=== PATIENT | male | born 1955 | race Caucasian/White ===

== ENCOUNTER 2016-02-21 | Inpatient (IN) | payer MEDICARE, MEDICAID ==
[~2016-02-21] VITALS: Ht 180.3 cm; Wt 82.6 kg
[~2016-02-21] MED LIST: ACET-868 GT; ALBU1.257 IH; ALLA266C2 TP; ASCO500S2 GT; ATOR10TA GT; BACL10TA GT; BENZ1LOZ58 PO; BISA10SU8 RC; CADE40GE2 TP; CALC-494 GT; CALC0.253 PO; CLOP75TA15 GT; CLOT15CR35 TP; ENOX40DI9 SQ; ESCI10TA GT; FAMO20TA8 GT; GABA300C GT; HYDR-552 GT; HYDR1SOL TP; IPRA0.2S9 IH; MAGN400O6 GT; METO25TA6 GT; MINE396O3 TP; MULT-659 GT; NEOM15OI3 TP; ONDA4TAB11 GT
--- NOTE | 2016-02-23 08:30 | NUR ---
Please see resident's previous account [id number] for all assessments and nurses notes. Originally admitted on .
[2016-02-23] MEDS ORDERED: MENTHOL/CETYLPYRD (CEPACOL) 1 LOZ LOZENGE PO PRN (09:40)
[2016-02-23] MEDS ORDERED: ALBUTEROL HALF STRENGTH 1.25 MG/3 ML VIAL.NEB NEB PRN (09:40)
[2016-02-23] MEDS ORDERED: BISACODYL SUPP (10 MG) 10 MG/SUPP.RECT SUPP.RECT RC PRN (09:40)
[2016-02-23] MEDS ORDERED: ONDANSETRON 4 MG TAB.RAPDIS GT PRN (09:40)
[2016-02-23] MEDS ORDERED: ATORVASTATIN CALCIUM 20MG TABLET GT SCH (09:40)
[2016-02-23] MEDS ORDERED: IPRATROPIUM NEB FS 0.5 MG/2.5 ML AMPUL.NEB NEB PRN (09:40)
[2016-02-23] MEDS ORDERED: HYDROGEL DRESSING 90 GM TUBE TP SCH ×2 (09:40)
[2016-02-23 10:00] VITALS: BP 103/62
--- NOTE | 2016-02-23 10:34 | NUR ---
WOUND CARE CONSULT: PT SEEN FOR EVALUATION OF EXCORIATED AREAS AROUND SACRAL ULCER. SACRAL STAGE IV ULCER MEASURES 5CM X 5CM X 0.5CM AND IS RED IN COLOR, MODERATE AMOUNT OF SEROSANGUINOUS AND GREEN DRAINAGE NOTED, NO ODOR. THERE IS EXCORIATION ON RT AND LEFT SIDE OF SACRAL ULCER. RT BUTTOCK STAGE IV ULCER MEASURES 5.5CM X 6.5CM X 1.5CM AND IS RED IN COLOR. THERE IS UNDERMINING OF 1.5CM FROM 9 TO 12 OCLOCK. THERE IS MODERATE AMOUNT OF SEROSANGUINOUS DRAINAGE AND GREEN DRAINAGE, NO ODOR. PERIWOUND IS CLEAR EXCEPT FOR SLIGHT EXCORIATION PROXIMALLY NEAR SACRAL ULCER. RECOMMENDATIONS MADE FOR GENTAMICIN TO SACRAL AND RT BUTTOCK ULCERS, Z GUARD TO PERIWOUND AREAS, PACK BOTH ULCERS WITH KERLIX LIGHTLY MOISTENED WITH SALINE, THEN COVER WITH GAUZE, AND ABD PADS. PERIWOUND AREAS TO BE PROTECTED WITH Z GUARD AND OIL EMULSION DSG, GAUZE, ABD PAD OVER ENTIRE WOUND AND PERIWOUND AREA. WOUND CARE TO BE PERFORMED EVERY SHIFT AND PRN SOILING. SKIN TO BE KEPT CLEAN AND DRY. ALL SKIN PROTECTION AND WOUND RECOMMENDATIONS DISCUSSED WITH NURSING STAFF. IN AGREEMENT WITH PLAN OF CARE.
--- NOTE | 2016-02-23 11:12 | NUR ---
Please see resident's previous account [id number] for Social Service assessments, evaluations and notes.
[2016-02-23] MEDS: BACLOFEN (10 MG) 10 MG TABLET GT SCH ×3 (13:00→21:43)
[2016-02-23] MEDS: CALCIUM CARBONATE 500 MG TAB.CHEW GT SCH ×2 (13:00→17:45)
[2016-02-23] MEDS: MINERAL OIL/PETROL OINT 396 GM JAR TP SCH ×2 (13:00→17:46)
[2016-02-23] MEDS: HYDROGEL DRESSING 90 GM TUBE TP SCH ×3 (13:00→21:44)
[2016-02-23] MEDS: GABAPENTIN 300 MG CAPSULE GT SCH ×2 (13:00→17:45)
[2016-02-23] MEDS: ACIDOPHILUS/BULGARICUS 1 EACH TAB.CHEW GT SCH ×2 (13:00→17:41)
[2016-02-23] MEDS: GENTAMICIN 0.1% OINT 15 GM TUBE TP SCH ×2 (13:00→21:45)
[2016-02-23] MEDS: Z GUARD REMEDY 4 OZ OINT TP SCH ×4 (13:00→21:45)
[2016-02-23] MEDS: METOPROLOL TARTRATE 25 MG TABLET GT SCH (17:41)
[2016-02-23] MEDS: ASCORBIC ACID 500 MG TABLET GT SCH (17:46)
[2016-02-23 20:36] VITALS: BP 94/53
[2016-02-23] MEDS: FAMOTIDINE (20 MG) 20 MG TABLET GT SCH (21:43)
[2016-02-23] MEDS: POVIDONE-IODINE OINT 28.4 GM TUBE TP SCH ×2 (21:44)
[2016-02-23] MEDS: HYDROGEN PEROXIDE 480 ML BOTTLE TP SCH (21:45)
[2016-02-23] MEDS: CLOTRIMAZOLE/BETAMETASONE DIPROPIONATE 15 GM TUBE TP SCH ×2 (21:45)
[2016-02-23] MEDS: ATORVASTATIN CALCIUM 20MG TABLET GT SCH (21:46)
[2016-02-24] MEDS: HYDROCODONE/APAP 10/325MG 1 EA TABLET GT PRN ×2 (06:07→22:55)
[2016-02-24 07:49] VITALS: BP 113/63
[2016-02-24] MEDS: METOPROLOL TARTRATE 25 MG TABLET GT SCH ×2 (09:00→16:50)
[2016-02-24] MEDS: MINERAL OIL/PETROL OINT 396 GM JAR TP SCH ×3 (09:00→16:51)
[2016-02-24] MEDS: CRANBERRY EXT/C/L. SPOROGENES 405 MG/TAB TABLET GT SCH (09:41)
[2016-02-24] MEDS: POLYETHYLENE GLYCOL 3350 17 GM POWD.PACK GT SCH (09:42)
[2016-02-24] MEDS: ASCORBIC ACID 500 MG TABLET GT SCH ×2 (09:42→16:38)
[2016-02-24] MEDS: BACLOFEN (10 MG) 10 MG TABLET GT SCH ×4 (09:42→21:02)
[2016-02-24] MEDS: ESCITALOPRAM OXALATE (10 MG) 10 MG TABLET GT SCH (09:42)
[2016-02-24] MEDS: CALCITRIOL ORAL SOLUTION 1 MCG/ML GT SCH (09:42)
[2016-02-24] MEDS: GABAPENTIN 300 MG CAPSULE GT SCH ×3 (09:42→16:38)
[2016-02-24] MEDS: MULTIVIT, IRON, MIN NO. 8, FA 1 TAB GT SCH (09:42)
[2016-02-24] MEDS: ACIDOPHILUS/BULGARICUS 1 EACH TAB.CHEW GT SCH ×3 (09:42→16:37)
[2016-02-24] MEDS: CLOPIDOGREL BISULFATE 75 MG TABLET GT SCH (09:42)
[2016-02-24] MEDS: FAMOTIDINE (20 MG) 20 MG TABLET GT SCH ×2 (09:42→21:02)
[2016-02-24] MEDS: CALCIUM CARBONATE 500 MG TAB.CHEW GT SCH ×3 (09:42→16:38)
[2016-02-24] MEDS: ENOXAPARIN SODIUM 40 MG/0.4 ML DISP.SYRIN SQ SCH (09:43)
[2016-02-24] MEDS: HYDROCODONE/APAP 10/325MG 1 EA TABLET GT SCH (12:28)
[2016-02-24] MEDS: CLOTRIMAZOLE/BETAMETASONE DIPROPIONATE 15 GM TUBE TP SCH ×4 (13:00→21:03)
[2016-02-24] MEDS: HYDROGEN PEROXIDE 480 ML BOTTLE TP SCH ×2 (13:00→21:03)
[2016-02-24] MEDS: HYDROGEL DRESSING 90 GM TUBE TP SCH ×5 (13:00→22:00)
[2016-02-24] MEDS: POVIDONE-IODINE OINT 28.4 GM TUBE TP SCH ×4 (13:00→21:02)
[2016-02-24] MEDS: Z GUARD REMEDY 4 OZ OINT TP SCH ×7 (13:00→22:00)
[2016-02-24] MEDS: GENTAMICIN 0.1% OINT 15 GM TUBE TP SCH ×3 (13:00→22:00)
[2016-02-24 20:16] VITALS: BP 110/66
[2016-02-24] MEDS: ATORVASTATIN CALCIUM 20MG TABLET GT SCH (21:03)
[2016-02-25] MEDS: HYDROCODONE/APAP 10/325MG 1 EA TABLET GT PRN ×2 (05:18→21:40)
[2016-02-25 07:56] VITALS: BP 111/67
[2016-02-25] MEDS: CRANBERRY EXT/C/L. SPOROGENES 405 MG/TAB TABLET GT SCH (09:19)
[2016-02-25] MEDS: ACIDOPHILUS/BULGARICUS 1 EACH TAB.CHEW GT SCH ×3 (09:19→16:51)
[2016-02-25] MEDS: CALCITRIOL ORAL SOLUTION 1 MCG/ML GT SCH (09:19)
[2016-02-25] MEDS: ESCITALOPRAM OXALATE (10 MG) 10 MG TABLET GT SCH (09:19)
[2016-02-25] MEDS: BACLOFEN (10 MG) 10 MG TABLET GT SCH ×4 (09:19→21:35)
[2016-02-25] MEDS: POLYETHYLENE GLYCOL 3350 17 GM POWD.PACK GT SCH (09:20)
[2016-02-25] MEDS: CLOPIDOGREL BISULFATE 75 MG TABLET GT SCH (09:20)
[2016-02-25] MEDS: ASCORBIC ACID 500 MG TABLET GT SCH ×2 (09:20→16:52)
[2016-02-25] MEDS: MULTIVIT, IRON, MIN NO. 8, FA 1 TAB GT SCH (09:20)
[2016-02-25] MEDS: CALCIUM CARBONATE 500 MG TAB.CHEW GT SCH ×3 (09:20→16:52)
[2016-02-25] MEDS: METOPROLOL TARTRATE 25 MG TABLET GT SCH ×2 (09:20→16:51)
[2016-02-25] MEDS: FAMOTIDINE (20 MG) 20 MG TABLET GT SCH ×2 (09:20→21:35)
[2016-02-25] MEDS: GABAPENTIN 300 MG CAPSULE GT SCH ×3 (09:20→16:52)
[2016-02-25] MEDS: HYDROCODONE/APAP 10/325MG 1 EA TABLET GT SCH (09:20)
[2016-02-25] MEDS: ENOXAPARIN SODIUM 40 MG/0.4 ML DISP.SYRIN SQ SCH (09:21)
[2016-02-25] MEDS: Z GUARD REMEDY 4 OZ OINT TP SCH ×8 (10:00→21:37)
[2016-02-25] MEDS: CLOTRIMAZOLE/BETAMETASONE DIPROPIONATE 15 GM TUBE TP SCH ×4 (10:00→21:37)
[2016-02-25] MEDS: POVIDONE-IODINE OINT 28.4 GM TUBE TP SCH ×4 (10:00→21:36)
[2016-02-25] MEDS: HYDROGEN PEROXIDE 480 ML BOTTLE TP SCH ×2 (10:00→21:36)
[2016-02-25] MEDS: GENTAMICIN 0.1% OINT 15 GM TUBE TP SCH ×4 (10:00→21:36)
[2016-02-25] MEDS: MINERAL OIL/PETROL OINT 396 GM JAR TP SCH ×3 (10:00→16:52)
[2016-02-25] MEDS: HYDROGEL DRESSING 90 GM TUBE TP SCH ×6 (10:00→21:36)
--- NOTE | 2016-02-25 20:30 | NUR ---
Pt seen by Peggy Hoffman SVP [employer],no new order.
[2016-02-25 20:44] VITALS: BP 101/61
[2016-02-25] MEDS: ATORVASTATIN CALCIUM 20MG TABLET GT SCH (21:37)
[2016-02-26] MEDS: HYDROCODONE/APAP 10/325MG 1 EA TABLET GT PRN ×2 (04:46→21:21)
[2016-02-26 07:50] VITALS: BP 103/63
[2016-02-26] MEDS: CRANBERRY EXT/C/L. SPOROGENES 405 MG/TAB TABLET GT SCH (09:03)
[2016-02-26] MEDS: ACIDOPHILUS/BULGARICUS 1 EACH TAB.CHEW GT SCH ×3 (09:03→16:50)
[2016-02-26] MEDS: METOPROLOL TARTRATE 25 MG TABLET GT SCH ×2 (09:03→16:50)
[2016-02-26] MEDS: CLOPIDOGREL BISULFATE 75 MG TABLET GT SCH (09:03)
[2016-02-26] MEDS: MULTIVIT, IRON, MIN NO. 8, FA 1 TAB GT SCH (09:03)
[2016-02-26] MEDS: FAMOTIDINE (20 MG) 20 MG TABLET GT SCH ×2 (09:03→21:21)
[2016-02-26] MEDS: ESCITALOPRAM OXALATE (10 MG) 10 MG TABLET GT SCH (09:03)
[2016-02-26] MEDS: CALCITRIOL ORAL SOLUTION 1 MCG/ML GT SCH (09:03)
[2016-02-26] MEDS: HYDROCODONE/APAP 10/325MG 1 EA TABLET GT SCH (09:03)
[2016-02-26] MEDS: BACLOFEN (10 MG) 10 MG TABLET GT SCH ×4 (09:03→21:21)
[2016-02-26] MEDS: POLYETHYLENE GLYCOL 3350 17 GM POWD.PACK GT SCH (09:03)
[2016-02-26] MEDS: GABAPENTIN 300 MG CAPSULE GT SCH ×3 (09:03→16:51)
[2016-02-26] MEDS: ENOXAPARIN SODIUM 40 MG/0.4 ML DISP.SYRIN SQ SCH (09:04)
[2016-02-26] MEDS: ASCORBIC ACID 500 MG TABLET GT SCH ×2 (09:04→16:51)
[2016-02-26] MEDS: CALCIUM CARBONATE 500 MG TAB.CHEW GT SCH ×3 (09:04→16:51)
[2016-02-26] MEDS: MINERAL OIL/PETROL OINT 396 GM JAR TP SCH ×3 (09:41→16:51)
[2016-02-26] MEDS: POVIDONE-IODINE OINT 28.4 GM TUBE TP SCH ×4 (09:41→22:00)
[2016-02-26] MEDS: HYDROGEL DRESSING 90 GM TUBE TP SCH ×6 (09:42→22:00)
[2016-02-26] MEDS: GENTAMICIN 0.1% OINT 15 GM TUBE TP SCH ×4 (09:42→22:00)
[2016-02-26] MEDS: HYDROGEN PEROXIDE 480 ML BOTTLE TP SCH ×2 (09:42→21:21)
[2016-02-26] MEDS: CLOTRIMAZOLE/BETAMETASONE DIPROPIONATE 15 GM TUBE TP SCH ×4 (09:43→21:21)
[2016-02-26] MEDS: Z GUARD REMEDY 4 OZ OINT TP SCH ×8 (09:43→22:00)
[2016-02-26 19:43] VITALS: BP 107/65
[2016-02-26] MEDS: ATORVASTATIN CALCIUM 20MG TABLET GT SCH (21:21)
[2016-02-27 07:54] VITALS: BP 113/71
[2016-02-27] MEDS: FAMOTIDINE (20 MG) 20 MG TABLET GT SCH ×2 (09:21→21:59)
[2016-02-27] MEDS: GABAPENTIN 300 MG CAPSULE GT SCH ×3 (09:21→16:53)
[2016-02-27] MEDS: CALCIUM CARBONATE 500 MG TAB.CHEW GT SCH ×3 (09:21→16:53)
[2016-02-27] MEDS: POLYETHYLENE GLYCOL 3350 17 GM POWD.PACK GT SCH (09:21)
[2016-02-27] MEDS: BACLOFEN (10 MG) 10 MG TABLET GT SCH ×4 (09:21→21:59)
[2016-02-27] MEDS: CLOPIDOGREL BISULFATE 75 MG TABLET GT SCH (09:21)
[2016-02-27] MEDS: METOPROLOL TARTRATE 25 MG TABLET GT SCH ×2 (09:21→16:52)
[2016-02-27] MEDS: MULTIVIT, IRON, MIN NO. 8, FA 1 TAB GT SCH (09:21)
[2016-02-27] MEDS: ASCORBIC ACID 500 MG TABLET GT SCH ×2 (09:21→16:53)
[2016-02-27] MEDS: CRANBERRY EXT/C/L. SPOROGENES 405 MG/TAB TABLET GT SCH (09:21)
[2016-02-27] MEDS: ESCITALOPRAM OXALATE (10 MG) 10 MG TABLET GT SCH (09:21)
[2016-02-27] MEDS: ACIDOPHILUS/BULGARICUS 1 EACH TAB.CHEW GT SCH ×3 (09:21→16:52)
[2016-02-27] MEDS: CALCITRIOL ORAL SOLUTION 1 MCG/ML GT SCH (09:21)
[2016-02-27] MEDS: MINERAL OIL/PETROL OINT 396 GM JAR TP SCH ×3 (09:22→16:53)
[2016-02-27] MEDS: ENOXAPARIN SODIUM 40 MG/0.4 ML DISP.SYRIN SQ SCH (09:22)
[2016-02-27] MEDS: HYDROCODONE/APAP 10/325MG 1 EA TABLET GT SCH (12:03)
[2016-02-27] MEDS: CLOTRIMAZOLE/BETAMETASONE DIPROPIONATE 15 GM TUBE TP SCH ×4 (14:00→22:00)
[2016-02-27] MEDS: GENTAMICIN 0.1% OINT 15 GM TUBE TP SCH ×4 (14:00→21:59)
[2016-02-27] MEDS: HYDROGEN PEROXIDE 480 ML BOTTLE TP SCH ×2 (14:00→21:59)
[2016-02-27] MEDS: POVIDONE-IODINE OINT 28.4 GM TUBE TP SCH ×4 (14:00→21:59)
[2016-02-27] MEDS: HYDROGEL DRESSING 90 GM TUBE TP SCH ×6 (14:00→21:59)
[2016-02-27] MEDS: Z GUARD REMEDY 4 OZ OINT TP SCH ×8 (14:00→21:00)
[2016-02-27 19:53] VITALS: BP 110/68
[2016-02-27] MEDS: ATORVASTATIN CALCIUM 20MG TABLET GT SCH (22:00)
[2016-02-28] MEDS: HYDROCODONE/APAP 10/325MG 1 EA TABLET GT PRN ×2 (03:50→22:57)
[2016-02-28 08:08] VITALS: BP 109/58
[2016-02-28] MEDS: Z GUARD REMEDY 4 OZ OINT TP SCH ×8 (09:00→20:42)
[2016-02-28] MEDS: HYDROGEL DRESSING 90 GM TUBE TP SCH ×6 (09:00→20:41)
[2016-02-28] MEDS: HYDROGEN PEROXIDE 480 ML BOTTLE TP SCH ×2 (09:00→20:41)
[2016-02-28] MEDS: GENTAMICIN 0.1% OINT 15 GM TUBE TP SCH ×4 (09:00→20:41)
[2016-02-28] MEDS: POVIDONE-IODINE OINT 28.4 GM TUBE TP SCH ×4 (09:00→20:40)
[2016-02-28] MEDS: CLOTRIMAZOLE/BETAMETASONE DIPROPIONATE 15 GM TUBE TP SCH ×4 (09:00→20:42)
[2016-02-28] MEDS: CRANBERRY EXT/C/L. SPOROGENES 405 MG/TAB TABLET GT SCH (09:24)
[2016-02-28] MEDS: ESCITALOPRAM OXALATE (10 MG) 10 MG TABLET GT SCH (09:24)
[2016-02-28] MEDS: CALCITRIOL ORAL SOLUTION 1 MCG/ML GT SCH (09:24)
[2016-02-28] MEDS: BACLOFEN (10 MG) 10 MG TABLET GT SCH ×4 (09:24→20:40)
[2016-02-28] MEDS: ACIDOPHILUS/BULGARICUS 1 EACH TAB.CHEW GT SCH ×3 (09:24→17:04)
[2016-02-28] MEDS: METOPROLOL TARTRATE 25 MG TABLET GT SCH ×2 (09:26→17:04)
[2016-02-28] MEDS: FAMOTIDINE (20 MG) 20 MG TABLET GT SCH ×2 (09:27→20:40)
[2016-02-28] MEDS: POLYETHYLENE GLYCOL 3350 17 GM POWD.PACK GT SCH (09:27)
[2016-02-28] MEDS: MULTIVIT, IRON, MIN NO. 8, FA 1 TAB GT SCH (09:27)
[2016-02-28] MEDS: CLOPIDOGREL BISULFATE 75 MG TABLET GT SCH (09:27)
[2016-02-28] MEDS: CALCIUM CARBONATE 500 MG TAB.CHEW GT SCH ×3 (09:27→17:07)
[2016-02-28] MEDS: GABAPENTIN 300 MG CAPSULE GT SCH ×3 (09:27→17:06)
[2016-02-28] MEDS: ASCORBIC ACID 500 MG TABLET GT SCH ×2 (09:27→17:07)
[2016-02-28] MEDS: MINERAL OIL/PETROL OINT 396 GM JAR TP SCH ×3 (09:28→17:07)
[2016-02-28] MEDS: ENOXAPARIN SODIUM 40 MG/0.4 ML DISP.SYRIN SQ SCH (09:29)
[2016-02-28] MEDS: HYDROCODONE/APAP 10/325MG 1 EA TABLET GT SCH (13:30)
[2016-02-28 19:58] VITALS: BP 110/67
[2016-02-28] MEDS: ATORVASTATIN CALCIUM 20MG TABLET GT SCH (21:19)
[2016-02-29 08:06] VITALS: BP 121/75
[2016-02-29] MEDS: MINERAL OIL/PETROL OINT 396 GM JAR TP SCH ×3 (09:00→17:47)
[2016-02-29] MEDS: CALCITRIOL ORAL SOLUTION 1 MCG/ML GT SCH (09:44)
[2016-02-29] MEDS: ESCITALOPRAM OXALATE (10 MG) 10 MG TABLET GT SCH (09:44)
[2016-02-29] MEDS: BACLOFEN (10 MG) 10 MG TABLET GT SCH ×4 (09:44→21:02)
[2016-02-29] MEDS: ACIDOPHILUS/BULGARICUS 1 EACH TAB.CHEW GT SCH ×3 (09:44→17:46)
[2016-02-29] MEDS: CRANBERRY EXT/C/L. SPOROGENES 405 MG/TAB TABLET GT SCH (09:44)
[2016-02-29] MEDS: POLYETHYLENE GLYCOL 3350 17 GM POWD.PACK GT SCH (09:45)
[2016-02-29] MEDS: ASCORBIC ACID 500 MG TABLET GT SCH ×2 (09:45→17:47)
[2016-02-29] MEDS: CLOPIDOGREL BISULFATE 75 MG TABLET GT SCH (09:45)
[2016-02-29] MEDS: METOPROLOL TARTRATE 25 MG TABLET GT SCH ×2 (09:45→17:46)
[2016-02-29] MEDS: HYDROCODONE/APAP 10/325MG 1 EA TABLET GT SCH (09:45)
[2016-02-29] MEDS: GABAPENTIN 300 MG CAPSULE GT SCH ×3 (09:45→17:46)
[2016-02-29] MEDS: FAMOTIDINE (20 MG) 20 MG TABLET GT SCH ×2 (09:45→21:02)
[2016-02-29] MEDS: MULTIVIT, IRON, MIN NO. 8, FA 1 TAB GT SCH (09:45)
[2016-02-29] MEDS: CALCIUM CARBONATE 500 MG TAB.CHEW GT SCH ×3 (09:45→17:47)
[2016-02-29] MEDS: ENOXAPARIN SODIUM 40 MG/0.4 ML DISP.SYRIN SQ SCH (09:46)
[2016-02-29] MEDS: Z GUARD REMEDY 4 OZ OINT TP SCH ×8 (10:45→21:05)
[2016-02-29] MEDS: HYDROGEN PEROXIDE 480 ML BOTTLE TP SCH ×2 (10:45→21:05)
[2016-02-29] MEDS: GENTAMICIN 0.1% OINT 15 GM TUBE TP SCH ×4 (10:45→21:05)
[2016-02-29] MEDS: HYDROGEL DRESSING 90 GM TUBE TP SCH ×6 (10:45→21:04)
[2016-02-29] MEDS: CLOTRIMAZOLE/BETAMETASONE DIPROPIONATE 15 GM TUBE TP SCH ×4 (10:45→21:05)
[2016-02-29] MEDS: POVIDONE-IODINE OINT 28.4 GM TUBE TP SCH ×3 (10:45→21:02)
[2016-02-29 20:00] VITALS: BP 105/59
[2016-02-29] MEDS: ATORVASTATIN CALCIUM 20MG TABLET GT SCH (21:05)
[2016-03-01] MEDS: HYDROCODONE/APAP 10/325MG 1 EA TABLET GT PRN ×2 (01:02→18:05)
[2016-03-01 07:41] VITALS: BP 110/72
[2016-03-01] MEDS: ACIDOPHILUS/BULGARICUS 1 EACH TAB.CHEW GT SCH ×3 (09:37→17:28)
[2016-03-01] MEDS: ESCITALOPRAM OXALATE (10 MG) 10 MG TABLET GT SCH (09:37)
[2016-03-01] MEDS: BACLOFEN (10 MG) 10 MG TABLET GT SCH ×4 (09:37→21:50)
[2016-03-01] MEDS: CALCITRIOL ORAL SOLUTION 1 MCG/ML GT SCH (09:37)
[2016-03-01] MEDS: CRANBERRY EXT/C/L. SPOROGENES 405 MG/TAB TABLET GT SCH (09:37)
[2016-03-01] MEDS: CLOPIDOGREL BISULFATE 75 MG TABLET GT SCH (09:38)
[2016-03-01] MEDS: CALCIUM CARBONATE 500 MG TAB.CHEW GT SCH ×3 (09:38→17:37)
[2016-03-01] MEDS: GABAPENTIN 300 MG CAPSULE GT SCH ×3 (09:38→17:37)
[2016-03-01] MEDS: HYDROCODONE/APAP 10/325MG 1 EA TABLET GT SCH (09:38)
[2016-03-01] MEDS: FAMOTIDINE (20 MG) 20 MG TABLET GT SCH ×2 (09:38→21:50)
[2016-03-01] MEDS: ASCORBIC ACID 500 MG TABLET GT SCH ×2 (09:38→17:37)
[2016-03-01] MEDS: MULTIVIT, IRON, MIN NO. 8, FA 1 TAB GT SCH (09:38)
[2016-03-01] MEDS: METOPROLOL TARTRATE 25 MG TABLET GT SCH ×2 (09:38→17:37)
[2016-03-01] MEDS: POLYETHYLENE GLYCOL 3350 17 GM POWD.PACK GT SCH (09:38)
[2016-03-01] MEDS: ENOXAPARIN SODIUM 40 MG/0.4 ML DISP.SYRIN SQ SCH (09:39)
[2016-03-01] MEDS: GENTAMICIN 0.1% OINT 15 GM TUBE TP SCH ×4 (10:40→21:51)
[2016-03-01] MEDS: HYDROGEL DRESSING 90 GM TUBE TP SCH ×6 (10:40→21:51)
[2016-03-01] MEDS: HYDROGEN PEROXIDE 480 ML BOTTLE TP SCH ×2 (10:40→21:51)
[2016-03-01] MEDS: Z GUARD REMEDY 4 OZ OINT TP SCH ×8 (10:40→21:52)
[2016-03-01] MEDS: MINERAL OIL/PETROL OINT 396 GM JAR TP SCH ×3 (10:40→17:37)
[2016-03-01] MEDS: CLOTRIMAZOLE/BETAMETASONE DIPROPIONATE 15 GM TUBE TP SCH ×4 (10:40→21:51)
[2016-03-01] MEDS: POVIDONE-IODINE OINT 28.4 GM TUBE TP SCH ×2 (10:40→21:50)
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
[2016-03-01 20:18] VITALS: BP 99/56
[2016-03-01] MEDS: ATORVASTATIN CALCIUM 20MG TABLET GT SCH (21:52)
[2016-03-02] MEDS: HYDROCODONE/APAP 10/325MG 1 EA TABLET GT PRN ×2 (00:13→21:51)
[2016-03-02] MEDS: HYDROCODONE/APAP 10/325MG 1 EA TABLET GT SCH ×2 (08:17→09:17)
[2016-03-02] MEDS: CALCITRIOL ORAL SOLUTION 1 MCG/ML GT SCH (08:24)
[2016-03-02] MEDS: CRANBERRY EXT/C/L. SPOROGENES 405 MG/TAB TABLET GT SCH (08:25)
[2016-03-02] MEDS: ESCITALOPRAM OXALATE (10 MG) 10 MG TABLET GT SCH (08:26)
[2016-03-02] MEDS: ACIDOPHILUS/BULGARICUS 1 EACH TAB.CHEW GT SCH ×3 (08:26→17:17)
[2016-03-02] MEDS: BACLOFEN (10 MG) 10 MG TABLET GT SCH ×4 (08:26→21:49)
[2016-03-02] MEDS: METOPROLOL TARTRATE 25 MG TABLET GT SCH ×2 (08:27→17:18)
[2016-03-02] MEDS: POLYETHYLENE GLYCOL 3350 17 GM POWD.PACK GT SCH (08:27)
[2016-03-02] MEDS: GABAPENTIN 300 MG CAPSULE GT SCH ×3 (08:28→17:18)
[2016-03-02] MEDS: CLOPIDOGREL BISULFATE 75 MG TABLET GT SCH (08:28)
[2016-03-02] MEDS: FAMOTIDINE (20 MG) 20 MG TABLET GT SCH ×2 (08:28→21:49)
[2016-03-02] MEDS: ASCORBIC ACID 500 MG TABLET GT SCH ×2 (08:28→17:18)
[2016-03-02] MEDS: CALCIUM CARBONATE 500 MG TAB.CHEW GT SCH ×3 (08:28→17:18)
[2016-03-02] MEDS: MULTIVIT, IRON, MIN NO. 8, FA 1 TAB GT SCH (08:28)
[2016-03-02] MEDS: MINERAL OIL/PETROL OINT 396 GM JAR TP SCH ×3 (08:29→17:18)
[2016-03-02] MEDS: ENOXAPARIN SODIUM 40 MG/0.4 ML DISP.SYRIN SQ SCH (08:29)
[2016-03-02] MEDS: HYDROGEL DRESSING 90 GM TUBE TP SCH ×6 (10:00→21:49)
[2016-03-02] MEDS: Z GUARD REMEDY 4 OZ OINT TP SCH ×8 (10:00→21:50)
[2016-03-02] MEDS: GENTAMICIN 0.1% OINT 15 GM TUBE TP SCH ×4 (10:00→21:49)
[2016-03-02] MEDS: CLOTRIMAZOLE/BETAMETASONE DIPROPIONATE 15 GM TUBE TP SCH ×4 (10:00→21:49)
[2016-03-02] MEDS: HYDROGEN PEROXIDE 480 ML BOTTLE TP SCH ×2 (10:00→21:49)
[2016-03-02 19:50] VITALS: BP 111/62
[2016-03-02] MEDS: ATORVASTATIN CALCIUM 20MG TABLET GT SCH (21:50)
[2016-03-03 07:44] VITALS: BP 115/72
[2016-03-03] MEDS: HYDROCODONE/APAP 10/325MG 1 EA TABLET GT SCH (09:00)
[2016-03-03] MEDS: MULTIVIT, IRON, MIN NO. 8, FA 1 TAB GT SCH (09:00)
[2016-03-03] MEDS: CRANBERRY EXT/C/L. SPOROGENES 405 MG/TAB TABLET GT SCH (09:00)
[2016-03-03] MEDS: CLOPIDOGREL BISULFATE 75 MG TABLET GT SCH (09:00)
[2016-03-03] MEDS: METOPROLOL TARTRATE 25 MG TABLET GT SCH ×2 (09:00→17:00)
[2016-03-03] MEDS: CALCIUM CARBONATE 500 MG TAB.CHEW GT SCH ×3 (09:00→17:57)
[2016-03-03] MEDS: BACLOFEN (10 MG) 10 MG TABLET GT SCH ×4 (09:00→21:31)
[2016-03-03] MEDS: ACIDOPHILUS/BULGARICUS 1 EACH TAB.CHEW GT SCH ×3 (09:00→17:56)
[2016-03-03] MEDS: CALCITRIOL ORAL SOLUTION 1 MCG/ML GT SCH (09:00)
[2016-03-03] MEDS: GABAPENTIN 300 MG CAPSULE GT SCH ×3 (09:00→17:57)
[2016-03-03] MEDS: FAMOTIDINE (20 MG) 20 MG TABLET GT SCH ×2 (09:00→21:31)
[2016-03-03] MEDS: ESCITALOPRAM OXALATE (10 MG) 10 MG TABLET GT SCH (09:00)
[2016-03-03] MEDS: ASCORBIC ACID 500 MG TABLET GT SCH ×2 (09:00→17:57)
[2016-03-03] MEDS: NEOMY SULF/BACITRAC ZN/POLY 15 GM TUBE TP SCH ×2 (09:00→21:32)
[2016-03-03] MEDS: ENOXAPARIN SODIUM 40 MG/0.4 ML DISP.SYRIN SQ SCH (09:00)
[2016-03-03] MEDS: POLYETHYLENE GLYCOL 3350 17 GM POWD.PACK GT SCH (09:00)
[2016-03-03] MEDS: HYDROGEL DRESSING 90 GM TUBE TP SCH ×6 (09:30→21:31)
[2016-03-03] MEDS: HYDROGEN PEROXIDE 480 ML BOTTLE TP SCH ×2 (09:30→21:32)
[2016-03-03] MEDS: GENTAMICIN 0.1% OINT 15 GM TUBE TP SCH ×4 (09:30→21:32)
[2016-03-03] MEDS: Z GUARD REMEDY 4 OZ OINT TP SCH ×8 (09:30→21:32)
[2016-03-03] MEDS: CLOTRIMAZOLE/BETAMETASONE DIPROPIONATE 15 GM TUBE TP SCH ×4 (09:30→21:32)
[2016-03-03] MEDS: MINERAL OIL/PETROL OINT 396 GM JAR TP SCH ×3 (09:30→17:57)
[2016-03-03 21:20] VITALS: BP 105/60
[2016-03-03] MEDS: ATORVASTATIN CALCIUM 20MG TABLET GT SCH (21:32)
[2016-03-04] MEDS: HYDROCODONE/APAP 10/325MG 1 EA TABLET GT PRN ×2 (05:42→12:28)
[2016-03-04 07:35] VITALS: BP 115/65
[2016-03-04] MEDS: NEOMY SULF/BACITRAC ZN/POLY 15 GM TUBE TP SCH ×2 (09:00→21:30)
[2016-03-04] MEDS: BACLOFEN (10 MG) 10 MG TABLET GT SCH ×4 (09:26→21:29)
[2016-03-04] MEDS: CALCITRIOL ORAL SOLUTION 1 MCG/ML GT SCH (09:26)
[2016-03-04] MEDS: ACIDOPHILUS/BULGARICUS 1 EACH TAB.CHEW GT SCH ×3 (09:26→17:57)
[2016-03-04] MEDS: ESCITALOPRAM OXALATE (10 MG) 10 MG TABLET GT SCH (09:26)
[2016-03-04] MEDS: METOPROLOL TARTRATE 25 MG TABLET GT SCH ×2 (09:26→17:57)
[2016-03-04] MEDS: POLYETHYLENE GLYCOL 3350 17 GM POWD.PACK GT SCH (09:26)
[2016-03-04] MEDS: CRANBERRY EXT/C/L. SPOROGENES 405 MG/TAB TABLET GT SCH (09:26)
[2016-03-04] MEDS: GABAPENTIN 300 MG CAPSULE GT SCH ×3 (09:27→17:57)
[2016-03-04] MEDS: ASCORBIC ACID 500 MG TABLET GT SCH ×2 (09:27→17:57)
[2016-03-04] MEDS: MULTIVIT, IRON, MIN NO. 8, FA 1 TAB GT SCH (09:27)
[2016-03-04] MEDS: FAMOTIDINE (20 MG) 20 MG TABLET GT SCH ×2 (09:27→21:29)
[2016-03-04] MEDS: CLOPIDOGREL BISULFATE 75 MG TABLET GT SCH (09:27)
[2016-03-04] MEDS: ENOXAPARIN SODIUM 40 MG/0.4 ML DISP.SYRIN SQ SCH (09:27)
[2016-03-04] MEDS: MINERAL OIL/PETROL OINT 396 GM JAR TP SCH ×3 (09:27→17:57)
[2016-03-04] MEDS: CALCIUM CARBONATE 500 MG TAB.CHEW GT SCH ×3 (09:27→17:57)
[2016-03-04] MEDS: HYDROGEN PEROXIDE 480 ML BOTTLE TP SCH ×2 (13:30→21:29)
[2016-03-04] MEDS: Z GUARD REMEDY 4 OZ OINT TP SCH ×8 (13:30→21:30)
[2016-03-04] MEDS: CLOTRIMAZOLE/BETAMETASONE DIPROPIONATE 15 GM TUBE TP SCH ×4 (13:30→21:30)
[2016-03-04] MEDS: HYDROGEL DRESSING 90 GM TUBE TP SCH ×6 (13:30→21:29)
[2016-03-04] MEDS: GENTAMICIN 0.1% OINT 15 GM TUBE TP SCH ×4 (13:30→21:29)
[2016-03-04 21:13] VITALS: BP 96/58
[2016-03-04] MEDS: ATORVASTATIN CALCIUM 20MG TABLET GT SCH (21:30)
[2016-03-05] MEDS: HYDROCODONE/APAP 10/325MG 1 EA TABLET GT PRN ×2 (01:07→12:44)
[2016-03-05] MEDS: HYDROCODONE/APAP 10/325MG 1 EA TABLET GT SCH (07:55)
[2016-03-05 07:58] VITALS: BP 112/69
[2016-03-05] MEDS: CRANBERRY EXT/C/L. SPOROGENES 405 MG/TAB TABLET GT SCH (08:02)
[2016-03-05] MEDS: FAMOTIDINE (20 MG) 20 MG TABLET GT SCH ×2 (08:02→21:09)
[2016-03-05] MEDS: BACLOFEN (10 MG) 10 MG TABLET GT SCH ×4 (08:02→21:09)
[2016-03-05] MEDS: METOPROLOL TARTRATE 25 MG TABLET GT SCH ×2 (08:02→17:55)
[2016-03-05] MEDS: GABAPENTIN 300 MG CAPSULE GT SCH ×3 (08:02→17:55)
[2016-03-05] MEDS: POLYETHYLENE GLYCOL 3350 17 GM POWD.PACK GT SCH (08:02)
[2016-03-05] MEDS: CALCITRIOL ORAL SOLUTION 1 MCG/ML GT SCH (08:02)
[2016-03-05] MEDS: ACIDOPHILUS/BULGARICUS 1 EACH TAB.CHEW GT SCH ×3 (08:02→17:55)
[2016-03-05] MEDS: ESCITALOPRAM OXALATE (10 MG) 10 MG TABLET GT SCH (08:02)
[2016-03-05] MEDS: ASCORBIC ACID 500 MG TABLET GT SCH ×2 (08:03→17:55)
[2016-03-05] MEDS: CALCIUM CARBONATE 500 MG TAB.CHEW GT SCH ×3 (08:03→17:55)
[2016-03-05] MEDS: CLOPIDOGREL BISULFATE 75 MG TABLET GT SCH (08:03)
[2016-03-05] MEDS: MINERAL OIL/PETROL OINT 396 GM JAR TP SCH ×3 (08:03→17:55)
[2016-03-05] MEDS: MULTIVIT, IRON, MIN NO. 8, FA 1 TAB GT SCH (08:03)
[2016-03-05] MEDS: ENOXAPARIN SODIUM 40 MG/0.4 ML DISP.SYRIN SQ SCH (08:03)
[2016-03-05] MEDS: NEOMY SULF/BACITRAC ZN/POLY 15 GM TUBE TP SCH ×2 (09:00→21:10)
[2016-03-05] MEDS: Z GUARD REMEDY 4 OZ OINT TP SCH ×8 (09:00→21:11)
[2016-03-05] MEDS: GENTAMICIN 0.1% OINT 15 GM TUBE TP SCH ×4 (09:00→21:10)
[2016-03-05] MEDS: HYDROGEL DRESSING 90 GM TUBE TP SCH ×6 (09:00→21:09)
[2016-03-05] MEDS: CLOTRIMAZOLE/BETAMETASONE DIPROPIONATE 15 GM TUBE TP SCH ×4 (09:00→21:10)
[2016-03-05] MEDS: HYDROGEN PEROXIDE 480 ML BOTTLE TP SCH ×2 (09:00→21:10)
[2016-03-05] MEDS ORDERED: METHOCARBAMOL (750MG) 750 MG TABLET GT ONE (10:30)
[2016-03-05 20:01] VITALS: BP 98/60
[2016-03-05] MEDS: ATORVASTATIN CALCIUM 20MG TABLET GT SCH (21:11)
[2016-03-06] MEDS: HYDROCODONE/APAP 10/325MG 1 EA TABLET GT PRN ×2 (01:31→23:53)
[2016-03-06 08:18] VITALS: BP 111/45
[2016-03-06] MEDS: BACLOFEN (10 MG) 10 MG TABLET GT SCH ×4 (09:35→20:37)
[2016-03-06] MEDS: CRANBERRY FRUIT 400 MG GT SCH (09:35)
[2016-03-06] MEDS: ESCITALOPRAM OXALATE (10 MG) 10 MG TABLET GT SCH (09:35)
[2016-03-06] MEDS: ACIDOPHILUS/BULGARICUS 1 EACH TAB.CHEW GT SCH ×3 (09:35→17:25)
[2016-03-06] MEDS: CALCITRIOL ORAL SOLUTION 1 MCG/ML GT SCH (09:35)
[2016-03-06] MEDS: ASCORBIC ACID 500 MG TABLET GT SCH ×2 (09:36→17:25)
[2016-03-06] MEDS: POLYETHYLENE GLYCOL 3350 17 GM POWD.PACK GT SCH (09:36)
[2016-03-06] MEDS: GABAPENTIN 300 MG CAPSULE GT SCH ×3 (09:36→17:25)
[2016-03-06] MEDS: MULTIVIT, IRON, MIN NO. 8, FA 1 TAB GT SCH (09:36)
[2016-03-06] MEDS: METOPROLOL TARTRATE 25 MG TABLET GT SCH ×2 (09:36→17:25)
[2016-03-06] MEDS: CALCIUM CARBONATE 500 MG TAB.CHEW GT SCH ×3 (09:36→17:25)
[2016-03-06] MEDS: FAMOTIDINE (20 MG) 20 MG TABLET GT SCH ×2 (09:36→20:37)
[2016-03-06] MEDS: CLOPIDOGREL BISULFATE 75 MG TABLET GT SCH (09:36)
[2016-03-06] MEDS: HYDROCODONE/APAP 10/325MG 1 EA TABLET GT SCH (09:36)
[2016-03-06] MEDS: ENOXAPARIN SODIUM 40 MG/0.4 ML DISP.SYRIN SQ SCH (09:37)
[2016-03-06] MEDS: HYDROGEL DRESSING 90 GM TUBE TP SCH ×6 (09:37→20:38)
[2016-03-06] MEDS: MINERAL OIL/PETROL OINT 396 GM JAR TP SCH ×3 (09:37→17:25)
[2016-03-06] MEDS: GENTAMICIN 0.1% OINT 15 GM TUBE TP SCH ×4 (09:40→20:38)
[2016-03-06] MEDS: HYDROGEN PEROXIDE 480 ML BOTTLE TP SCH ×2 (09:42→20:38)
[2016-03-06] MEDS: NEOMY SULF/BACITRAC ZN/POLY 15 GM TUBE TP SCH ×2 (09:43→20:38)
[2016-03-06] MEDS: CLOTRIMAZOLE/BETAMETASONE DIPROPIONATE 15 GM TUBE TP SCH ×4 (09:43→20:38)
[2016-03-06] MEDS: Z GUARD REMEDY 4 OZ OINT TP SCH ×8 (09:43→20:39)
[2016-03-06 19:56] VITALS: BP 102/64
[2016-03-06] MEDS: ATORVASTATIN CALCIUM 20MG TABLET GT SCH (21:03)
[2016-03-07 08:14] VITALS: BP 127/74
[2016-03-07] MEDS: CALCITRIOL ORAL SOLUTION 1 MCG/ML GT SCH (09:00)
[2016-03-07] MEDS: ESCITALOPRAM OXALATE (10 MG) 10 MG TABLET GT SCH (09:00)
[2016-03-07] MEDS: CLOPIDOGREL BISULFATE 75 MG TABLET GT SCH (09:00)
[2016-03-07] MEDS: ACIDOPHILUS/BULGARICUS 1 EACH TAB.CHEW GT SCH ×3 (09:00→17:00)
[2016-03-07] MEDS: ENOXAPARIN SODIUM 40 MG/0.4 ML DISP.SYRIN SQ SCH (09:00)
[2016-03-07] MEDS: BACLOFEN (10 MG) 10 MG TABLET GT SCH ×4 (09:00→21:23)
[2016-03-07] MEDS: CRANBERRY FRUIT 400 MG GT SCH (09:00)
[2016-03-07] MEDS: ASCORBIC ACID 500 MG TABLET GT SCH ×2 (09:00→17:00)
[2016-03-07] MEDS: METOPROLOL TARTRATE 25 MG TABLET GT SCH ×2 (09:00→17:00)
[2016-03-07] MEDS: GABAPENTIN 300 MG CAPSULE GT SCH ×3 (09:00→17:00)
[2016-03-07] MEDS: POLYETHYLENE GLYCOL 3350 17 GM POWD.PACK GT SCH (09:00)
[2016-03-07] MEDS: MULTIVIT, IRON, MIN NO. 8, FA 1 TAB GT SCH (09:00)
[2016-03-07] MEDS: FAMOTIDINE (20 MG) 20 MG TABLET GT SCH ×2 (09:00→21:23)
[2016-03-07] MEDS: CALCIUM CARBONATE 500 MG TAB.CHEW GT SCH ×3 (09:00→17:00)
--- NOTE | 2016-03-07 09:26 | NUR ---
Resident was seen by Dr. Rome TERRAZAS who stated that resident can get a filling on the chipped tooth. He stated that resident would need to go into the office to get that done. Dr. Peter noted that he will speak to Dr. Lopes and RAVI can call the office later for more information (including cost, etc). RAVI will follow up with dentist's office to gather information prior to calling doszmh-sb-omn Vilma to see if she wants to follow through with the procedure.
[2016-03-07] MEDS: HYDROCODONE/APAP 10/325MG 1 EA TABLET GT SCH (10:30)
[2016-03-07] MEDS: HYDROGEN PEROXIDE 480 ML BOTTLE TP SCH ×2 (11:30→21:23)
[2016-03-07] MEDS: CLOTRIMAZOLE/BETAMETASONE DIPROPIONATE 15 GM TUBE TP SCH ×4 (11:30→21:23)
[2016-03-07] MEDS: Z GUARD REMEDY 4 OZ OINT TP SCH ×8 (11:30→21:24)
[2016-03-07] MEDS: HYDROGEL DRESSING 90 GM TUBE TP SCH ×6 (11:30→21:23)
[2016-03-07] MEDS: GENTAMICIN 0.1% OINT 15 GM TUBE TP SCH ×4 (11:30→21:23)
[2016-03-07] MEDS: NEOMY SULF/BACITRAC ZN/POLY 15 GM TUBE TP SCH ×2 (11:30→21:23)
[2016-03-07] MEDS: MINERAL OIL/PETROL OINT 396 GM JAR TP SCH ×3 (11:30→17:00)
[2016-03-07] MEDS: HYDROCODONE/APAP 10/325MG 1 EA TABLET GT PRN ×2 (18:18→22:01)
[2016-03-07 20:38] VITALS: BP 101/62
[2016-03-07] MEDS: ATORVASTATIN CALCIUM 20MG TABLET GT SCH (21:24)
[2016-03-08 08:18] VITALS: BP 108/67
[2016-03-08] MEDS: BACLOFEN (10 MG) 10 MG TABLET GT SCH ×4 (09:44→21:53)
[2016-03-08] MEDS: ACIDOPHILUS/BULGARICUS 1 EACH TAB.CHEW GT SCH ×3 (09:44→17:41)
[2016-03-08] MEDS: CALCITRIOL ORAL SOLUTION 1 MCG/ML GT SCH (09:44)
[2016-03-08] MEDS: CRANBERRY FRUIT 400 MG GT SCH (09:44)
[2016-03-08] MEDS: ESCITALOPRAM OXALATE (10 MG) 10 MG TABLET GT SCH (09:44)
[2016-03-08] MEDS: CLOPIDOGREL BISULFATE 75 MG TABLET GT SCH (09:45)
[2016-03-08] MEDS: ASCORBIC ACID 500 MG TABLET GT SCH ×2 (09:45→17:42)
[2016-03-08] MEDS: HYDROCODONE/APAP 10/325MG 1 EA TABLET GT SCH (09:45)
[2016-03-08] MEDS: CALCIUM CARBONATE 500 MG TAB.CHEW GT SCH ×3 (09:45→17:42)
[2016-03-08] MEDS: GABAPENTIN 300 MG CAPSULE GT SCH ×3 (09:45→17:42)
[2016-03-08] MEDS: MULTIVIT, IRON, MIN NO. 8, FA 1 TAB GT SCH (09:45)
[2016-03-08] MEDS: FAMOTIDINE (20 MG) 20 MG TABLET GT SCH ×2 (09:45→21:53)
[2016-03-08] MEDS: POLYETHYLENE GLYCOL 3350 17 GM POWD.PACK GT SCH (09:45)
[2016-03-08] MEDS: METOPROLOL TARTRATE 25 MG TABLET GT SCH ×2 (09:45→17:42)
[2016-03-08] MEDS: ENOXAPARIN SODIUM 40 MG/0.4 ML DISP.SYRIN SQ SCH (09:46)
[2016-03-08] MEDS: GENTAMICIN 0.1% OINT 15 GM TUBE TP SCH ×4 (10:15→21:54)
[2016-03-08] MEDS: CLOTRIMAZOLE/BETAMETASONE DIPROPIONATE 15 GM TUBE TP SCH ×2 (10:15)
[2016-03-08] MEDS: HYDROGEN PEROXIDE 480 ML BOTTLE TP SCH ×2 (10:15→21:54)
[2016-03-08] MEDS: MINERAL OIL/PETROL OINT 396 GM JAR TP SCH ×3 (10:15→17:42)
[2016-03-08] MEDS: Z GUARD REMEDY 4 OZ OINT TP SCH ×7 (10:15→21:54)
[2016-03-08] MEDS: HYDROGEL DRESSING 90 GM TUBE TP SCH ×6 (10:15→21:53)
[2016-03-08] MEDS: NEOMY SULF/BACITRAC ZN/POLY 15 GM TUBE TP SCH ×2 (10:15→21:54)
[2016-03-08 20:02] VITALS: BP 101/60
[2016-03-08] MEDS: ATORVASTATIN CALCIUM 20MG TABLET GT SCH (21:54)
[2016-03-08] MEDS: HYDROCODONE/APAP 10/325MG 1 EA TABLET GT PRN (22:56)
--- NOTE | 2016-03-09 06:00 | NUR ---
RN NOTES Received new order from Peggy Hoffman for [id number] via gt q 12hr prn muscle spasms, noted and carried out.
[2016-03-09 08:19] VITALS: BP 125/68
[2016-03-09] MEDS: HYDROGEN PEROXIDE 480 ML BOTTLE TP SCH ×2 (09:00→21:32)
[2016-03-09] MEDS: Z GUARD REMEDY 4 OZ OINT TP SCH ×8 (09:00→21:32)
[2016-03-09] MEDS: CRANBERRY FRUIT 400 MG GT SCH (09:14)
[2016-03-09] MEDS: ESCITALOPRAM OXALATE (10 MG) 10 MG TABLET GT SCH (09:14)
[2016-03-09] MEDS: BACLOFEN (10 MG) 10 MG TABLET GT SCH ×4 (09:14→21:31)
[2016-03-09] MEDS: METOPROLOL TARTRATE 25 MG TABLET GT SCH ×2 (09:14→16:23)
[2016-03-09] MEDS: POLYETHYLENE GLYCOL 3350 17 GM POWD.PACK GT SCH (09:14)
[2016-03-09] MEDS: GABAPENTIN 300 MG CAPSULE GT SCH ×3 (09:14→16:23)
[2016-03-09] MEDS: CALCITRIOL ORAL SOLUTION 1 MCG/ML GT SCH (09:14)
[2016-03-09] MEDS: ACIDOPHILUS/BULGARICUS 1 EACH TAB.CHEW GT SCH ×3 (09:14→16:23)
[2016-03-09] MEDS: CALCIUM CARBONATE 500 MG TAB.CHEW GT SCH ×3 (09:15→16:23)
[2016-03-09] MEDS: CLOPIDOGREL BISULFATE 75 MG TABLET GT SCH (09:15)
[2016-03-09] MEDS: FAMOTIDINE (20 MG) 20 MG TABLET GT SCH ×2 (09:15→21:31)
[2016-03-09] MEDS: HYDROCODONE/APAP 10/325MG 1 EA TABLET GT SCH (09:15)
[2016-03-09] MEDS: MULTIVIT, IRON, MIN NO. 8, FA 1 TAB GT SCH (09:15)
[2016-03-09] MEDS: ASCORBIC ACID 500 MG TABLET GT SCH ×2 (09:15→16:23)
[2016-03-09] MEDS: ENOXAPARIN SODIUM 40 MG/0.4 ML DISP.SYRIN SQ SCH (09:17)
[2016-03-09] MEDS: HYDROGEL DRESSING 90 GM TUBE TP SCH ×6 (09:17→21:32)
[2016-03-09] MEDS: MINERAL OIL/PETROL OINT 396 GM JAR TP SCH ×3 (09:17→16:23)
[2016-03-09] MEDS: GENTAMICIN 0.1% OINT 15 GM TUBE TP SCH ×4 (09:20→21:32)
[2016-03-09] MEDS: NEOMY SULF/BACITRAC ZN/POLY 15 GM TUBE TP SCH ×2 (09:21→21:32)
[2016-03-09] MEDS: PROSOURCE / PROSTAT (PYXIS) 30 ML UDC GT SCH (18:46)
[2016-03-09 19:50] VITALS: BP 103/72
[2016-03-09] MEDS: ATORVASTATIN CALCIUM 20MG TABLET GT SCH (21:32)
[2016-03-09] MEDS: HYDROCODONE/APAP 10/325MG 1 EA TABLET GT PRN (22:11)
[2016-03-10] MEDS: ACETAMINOPHEN 650 MG/20 ML UDC- FOR SA PATIENTS ONLY GT PRN (02:56)
[2016-03-10 07:38] VITALS: BP 109/76
[2016-03-10] MEDS: GENTAMICIN 0.1% OINT 15 GM TUBE TP SCH ×4 (09:00→21:13)
[2016-03-10] MEDS: NEOMY SULF/BACITRAC ZN/POLY 15 GM TUBE TP SCH ×2 (09:00→21:13)
[2016-03-10] MEDS: MINERAL OIL/PETROL OINT 396 GM JAR TP SCH ×3 (09:00→17:00)
[2016-03-10] MEDS: Z GUARD REMEDY 4 OZ OINT TP SCH ×8 (09:00→21:13)
[2016-03-10] MEDS: HYDROGEN PEROXIDE 480 ML BOTTLE TP SCH ×2 (09:00→21:13)
[2016-03-10] MEDS: HYDROGEL DRESSING 90 GM TUBE TP SCH ×6 (09:00→21:13)
[2016-03-10] MEDS: FAMOTIDINE (20 MG) 20 MG TABLET GT SCH ×2 (09:31→21:12)
[2016-03-10] MEDS: CALCITRIOL ORAL SOLUTION 1 MCG/ML GT SCH (09:31)
[2016-03-10] MEDS: HYDROCODONE/APAP 10/325MG 1 EA TABLET GT SCH (09:31)
[2016-03-10] MEDS: ESCITALOPRAM OXALATE (10 MG) 10 MG TABLET GT SCH (09:31)
[2016-03-10] MEDS: CRANBERRY FRUIT 400 MG GT SCH (09:31)
[2016-03-10] MEDS: GABAPENTIN 300 MG CAPSULE GT SCH ×3 (09:31→17:00)
[2016-03-10] MEDS: BACLOFEN (10 MG) 10 MG TABLET GT SCH ×4 (09:31→21:12)
[2016-03-10] MEDS: ACIDOPHILUS/BULGARICUS 1 EACH TAB.CHEW GT SCH ×3 (09:31→17:00)
[2016-03-10] MEDS: POLYETHYLENE GLYCOL 3350 17 GM POWD.PACK GT SCH (09:31)
[2016-03-10] MEDS: METOPROLOL TARTRATE 25 MG TABLET GT SCH ×2 (09:31→17:00)
[2016-03-10] MEDS: ASCORBIC ACID 500 MG TABLET GT SCH ×2 (09:32→17:00)
[2016-03-10] MEDS: ENOXAPARIN SODIUM 40 MG/0.4 ML DISP.SYRIN SQ SCH (09:32)
[2016-03-10] MEDS: PROSOURCE / PROSTAT (PYXIS) 30 ML UDC GT SCH (09:32)
[2016-03-10] MEDS: CALCIUM CARBONATE 500 MG TAB.CHEW GT SCH ×3 (09:32→17:00)
[2016-03-10] MEDS: MULTIVIT, IRON, MIN NO. 8, FA 1 TAB GT SCH (09:32)
[2016-03-10] MEDS: CLOPIDOGREL BISULFATE 75 MG TABLET GT SCH (09:32)
--- NOTE | 2016-03-10 10:13 | NUR ---
Per Vilma ([id number]) it is okay to schedule dentist appt for resident. Vilma was informed that procedure will cost $265.00. Appointment was set with at Dr. Lopes's office for March 23, 2016 at 11AM. Per , okay to transport him with grace-chair. Climatologist Kary Clark informed. Vilma informed about appointment date and time.
--- NOTE | 2016-03-10 14:23 | NUR ---
Seen and examined by Peggy Hoffman NP, no new order given at this time.
[2016-03-10 19:49] VITALS: BP_SYST 104; BP_SYST 133; BP_DIAS 56; BP_DIAS 63
[2016-03-10] MEDS: ATORVASTATIN CALCIUM 20MG TABLET GT SCH (21:13)
[2016-03-10] MEDS: HYDROCODONE/APAP 10/325MG 1 EA TABLET GT PRN (23:09)
[2016-03-11 07:37] VITALS: BP 116/74
[2016-03-11] MEDS: GENTAMICIN 0.1% OINT 15 GM TUBE TP SCH ×4 (09:00→21:00)
[2016-03-11] MEDS: HYDROGEL DRESSING 90 GM TUBE TP SCH ×6 (09:00→21:00)
[2016-03-11] MEDS: Z GUARD REMEDY 4 OZ OINT TP SCH ×8 (09:00→21:00)
[2016-03-11] MEDS: NEOMY SULF/BACITRAC ZN/POLY 15 GM TUBE TP SCH ×2 (09:00→21:00)
[2016-03-11] MEDS: HYDROGEN PEROXIDE 480 ML BOTTLE TP SCH ×2 (09:00→21:00)
[2016-03-11] MEDS: ACIDOPHILUS/BULGARICUS 1 EACH TAB.CHEW GT SCH ×3 (09:39→16:17)
[2016-03-11] MEDS: BACLOFEN (10 MG) 10 MG TABLET GT SCH ×4 (09:39→21:00)
[2016-03-11] MEDS: ESCITALOPRAM OXALATE (10 MG) 10 MG TABLET GT SCH (09:39)
[2016-03-11] MEDS: CRANBERRY FRUIT 400 MG GT SCH (09:39)
[2016-03-11] MEDS: CALCITRIOL ORAL SOLUTION 1 MCG/ML GT SCH (09:39)
[2016-03-11] MEDS: MULTIVIT, IRON, MIN NO. 8, FA 1 TAB GT SCH (09:40)
[2016-03-11] MEDS: FAMOTIDINE (20 MG) 20 MG TABLET GT SCH ×2 (09:40→21:00)
[2016-03-11] MEDS: PROSOURCE / PROSTAT (PYXIS) 30 ML UDC GT SCH (09:40)
[2016-03-11] MEDS: METOPROLOL TARTRATE 25 MG TABLET GT SCH ×2 (09:40→16:17)
[2016-03-11] MEDS: CALCIUM CARBONATE 500 MG TAB.CHEW GT SCH ×3 (09:40→16:17)
[2016-03-11] MEDS: POLYETHYLENE GLYCOL 3350 17 GM POWD.PACK GT SCH (09:40)
[2016-03-11] MEDS: GABAPENTIN 300 MG CAPSULE GT SCH ×3 (09:40→16:17)
[2016-03-11] MEDS: ASCORBIC ACID 500 MG TABLET GT SCH ×2 (09:40→16:17)
[2016-03-11] MEDS: HYDROCODONE/APAP 10/325MG 1 EA TABLET GT SCH (09:40)
[2016-03-11] MEDS: CLOPIDOGREL BISULFATE 75 MG TABLET GT SCH (09:40)
[2016-03-11] MEDS: ENOXAPARIN SODIUM 40 MG/0.4 ML DISP.SYRIN SQ SCH (09:41)
[2016-03-11] MEDS: MINERAL OIL/PETROL OINT 396 GM JAR TP SCH ×3 (09:41→16:17)
--- NOTE | 2016-03-11 14:30 | NUR ---
INTERDISCIPLINARY PLAN OF CARE CONFERENCE was held today. Snzhgz-lz-jjw Vilma attended IDT meeting. Dr. Ugarte and the interdisciplinary team reviewed the current plan of care in detail. New orders were reviewed and no other changes were noted. She was informed that dental appointment is scheduled for March 23, 2016 at 11AM.
[2016-03-11] MEDS: METHOCARBAMOL (750MG) 750 MG TABLET PO PRN (15:15)
[2016-03-11] MEDS: ACETAMINOPHEN 650 MG/20 ML UDC- FOR SA PATIENTS ONLY GT PRN (16:29)
[2016-03-11 19:50] VITALS: BP 100/60
[2016-03-11] MEDS: ATORVASTATIN CALCIUM 20MG TABLET GT SCH (22:16)
[2016-03-11] MEDS: HYDROCODONE/APAP 10/325MG 1 EA TABLET GT PRN (22:17)
[2016-03-12 07:59] VITALS: BP 118/76
[2016-03-12] MEDS: POLYETHYLENE GLYCOL 3350 17 GM POWD.PACK GT SCH (08:44)
[2016-03-12] MEDS: CALCITRIOL ORAL SOLUTION 1 MCG/ML GT SCH (08:44)
[2016-03-12] MEDS: ESCITALOPRAM OXALATE (10 MG) 10 MG TABLET GT SCH (08:44)
[2016-03-12] MEDS: CRANBERRY FRUIT 400 MG GT SCH (08:44)
[2016-03-12] MEDS: GABAPENTIN 300 MG CAPSULE GT SCH ×3 (08:44→17:00)
[2016-03-12] MEDS: METOPROLOL TARTRATE 25 MG TABLET GT SCH ×2 (08:44→17:00)
[2016-03-12] MEDS: ACIDOPHILUS/BULGARICUS 1 EACH TAB.CHEW GT SCH ×3 (08:44→17:00)
[2016-03-12] MEDS: BACLOFEN (10 MG) 10 MG TABLET GT SCH ×4 (08:44→20:40)
[2016-03-12] MEDS: HYDROCODONE/APAP 10/325MG 1 EA TABLET GT SCH (08:52)
[2016-03-12] MEDS: CLOPIDOGREL BISULFATE 75 MG TABLET GT SCH (08:59)
[2016-03-12] MEDS: FAMOTIDINE (20 MG) 20 MG TABLET GT SCH ×2 (08:59→20:40)
[2016-03-12] MEDS: PROSOURCE / PROSTAT (PYXIS) 30 ML UDC GT SCH (08:59)
[2016-03-12] MEDS: ASCORBIC ACID 500 MG TABLET GT SCH ×2 (09:00→17:00)
[2016-03-12] MEDS: MULTIVIT, IRON, MIN NO. 8, FA 1 TAB GT SCH (09:00)
[2016-03-12] MEDS: ENOXAPARIN SODIUM 40 MG/0.4 ML DISP.SYRIN SQ SCH (09:00)
[2016-03-12] MEDS: CALCIUM CARBONATE 500 MG TAB.CHEW GT SCH ×3 (09:00→17:00)
[2016-03-12] MEDS: HYDROGEN PEROXIDE 480 ML BOTTLE TP SCH ×2 (09:30→20:41)
[2016-03-12] MEDS: HYDROGEL DRESSING 90 GM TUBE TP SCH ×6 (09:30→20:41)
[2016-03-12] MEDS: NEOMY SULF/BACITRAC ZN/POLY 15 GM TUBE TP SCH ×2 (09:30→20:41)
[2016-03-12] MEDS: MINERAL OIL/PETROL OINT 396 GM JAR TP SCH ×3 (09:30→17:00)
[2016-03-12] MEDS: GENTAMICIN 0.1% OINT 15 GM TUBE TP SCH ×4 (09:30→20:41)
[2016-03-12] MEDS: Z GUARD REMEDY 4 OZ OINT TP SCH ×8 (09:30→20:41)
[2016-03-12 20:12] VITALS: BP 101/59
[2016-03-12] MEDS: ATORVASTATIN CALCIUM 20MG TABLET GT SCH (22:00)
[2016-03-13] MEDS: HYDROCODONE/APAP 10/325MG 1 EA TABLET GT PRN ×2 (01:03→20:38)
[2016-03-13 07:37] VITALS: BP 108/68
[2016-03-13] MEDS: CALCITRIOL ORAL SOLUTION 1 MCG/ML GT SCH (09:40)
[2016-03-13] MEDS: ESCITALOPRAM OXALATE (10 MG) 10 MG TABLET GT SCH (09:40)
[2016-03-13] MEDS: BACLOFEN (10 MG) 10 MG TABLET GT SCH ×4 (09:40→20:38)
[2016-03-13] MEDS: CRANBERRY FRUIT 400 MG GT SCH (09:40)
[2016-03-13] MEDS: ACIDOPHILUS/BULGARICUS 1 EACH TAB.CHEW GT SCH ×3 (09:40→17:18)
[2016-03-13] MEDS: HYDROCODONE/APAP 10/325MG 1 EA TABLET GT SCH ×2 (09:41→14:58)
[2016-03-13] MEDS: MULTIVIT, IRON, MIN NO. 8, FA 1 TAB GT SCH (09:41)
[2016-03-13] MEDS: FAMOTIDINE (20 MG) 20 MG TABLET GT SCH ×2 (09:41→20:38)
[2016-03-13] MEDS: ASCORBIC ACID 500 MG TABLET GT SCH ×2 (09:41→17:19)
[2016-03-13] MEDS: GABAPENTIN 300 MG CAPSULE GT SCH ×3 (09:41→17:19)
[2016-03-13] MEDS: POLYETHYLENE GLYCOL 3350 17 GM POWD.PACK GT SCH (09:41)
[2016-03-13] MEDS: CALCIUM CARBONATE 500 MG TAB.CHEW GT SCH ×3 (09:41→17:19)
[2016-03-13] MEDS: METOPROLOL TARTRATE 25 MG TABLET GT SCH ×2 (09:41→17:19)
[2016-03-13] MEDS: CLOPIDOGREL BISULFATE 75 MG TABLET GT SCH (09:41)
[2016-03-13] MEDS: PROSOURCE / PROSTAT (PYXIS) 30 ML UDC GT SCH (09:41)
[2016-03-13] MEDS: ENOXAPARIN SODIUM 40 MG/0.4 ML DISP.SYRIN SQ SCH (09:42)
[2016-03-13] MEDS: MINERAL OIL/PETROL OINT 396 GM JAR TP SCH ×3 (09:42→17:19)
[2016-03-13] MEDS: HYDROGEL DRESSING 90 GM TUBE TP SCH ×6 (09:43→20:39)
[2016-03-13] MEDS: GENTAMICIN 0.1% OINT 15 GM TUBE TP SCH ×4 (09:43→20:39)
[2016-03-13] MEDS: Z GUARD REMEDY 4 OZ OINT TP SCH ×8 (09:44→20:39)
[2016-03-13] MEDS: HYDROGEN PEROXIDE 480 ML BOTTLE TP SCH ×2 (09:44→20:39)
[2016-03-13] MEDS: NEOMY SULF/BACITRAC ZN/POLY 15 GM TUBE TP SCH ×2 (09:44→20:39)
[2016-03-13 20:24] VITALS: BP 115/77
[2016-03-13] MEDS: ATORVASTATIN CALCIUM 20MG TABLET GT SCH (22:22)
[2016-03-14 07:28] VITALS: BP 109/64
[2016-03-14] MEDS: CRANBERRY FRUIT 400 MG GT SCH (08:41)
[2016-03-14] MEDS: ESCITALOPRAM OXALATE (10 MG) 10 MG TABLET GT SCH (08:41)
[2016-03-14] MEDS: ACIDOPHILUS/BULGARICUS 1 EACH TAB.CHEW GT SCH ×3 (08:41→17:22)
[2016-03-14] MEDS: BACLOFEN (10 MG) 10 MG TABLET GT SCH ×4 (08:41→21:19)
[2016-03-14] MEDS: CALCITRIOL ORAL SOLUTION 1 MCG/ML GT SCH (08:41)
[2016-03-14] MEDS: CLOPIDOGREL BISULFATE 75 MG TABLET GT SCH (08:42)
[2016-03-14] MEDS: PROSOURCE / PROSTAT (PYXIS) 30 ML UDC GT SCH (08:42)
[2016-03-14] MEDS: ASCORBIC ACID 500 MG TABLET GT SCH ×2 (08:42→17:23)
[2016-03-14] MEDS: POLYETHYLENE GLYCOL 3350 17 GM POWD.PACK GT SCH (08:42)
[2016-03-14] MEDS: METOPROLOL TARTRATE 25 MG TABLET GT SCH ×2 (08:42→17:23)
[2016-03-14] MEDS: CALCIUM CARBONATE 500 MG TAB.CHEW GT SCH ×3 (08:42→17:23)
[2016-03-14] MEDS: GABAPENTIN 300 MG CAPSULE GT SCH ×3 (08:42→17:23)
[2016-03-14] MEDS: HYDROCODONE/APAP 10/325MG 1 EA TABLET GT SCH (08:42)
[2016-03-14] MEDS: FAMOTIDINE (20 MG) 20 MG TABLET GT SCH ×2 (08:42→21:19)
[2016-03-14] MEDS: MULTIVIT, IRON, MIN NO. 8, FA 1 TAB GT SCH (08:42)
[2016-03-14] MEDS: ENOXAPARIN SODIUM 40 MG/0.4 ML DISP.SYRIN SQ SCH (08:43)
[2016-03-14] MEDS: HYDROGEL DRESSING 90 GM TUBE TP SCH ×6 (09:30→21:19)
[2016-03-14] MEDS: MINERAL OIL/PETROL OINT 396 GM JAR TP SCH ×3 (09:30→17:23)
[2016-03-14] MEDS: NEOMY SULF/BACITRAC ZN/POLY 15 GM TUBE TP SCH ×2 (09:30→21:19)
[2016-03-14] MEDS: GENTAMICIN 0.1% OINT 15 GM TUBE TP SCH ×4 (09:30→21:19)
[2016-03-14] MEDS: Z GUARD REMEDY 4 OZ OINT TP SCH ×8 (09:30→21:20)
[2016-03-14] MEDS: HYDROGEN PEROXIDE 480 ML BOTTLE TP SCH ×2 (09:30→21:19)
--- NOTE | 2016-03-14 10:58 | NUR ---
Seen and examined by Dr. Ugarte, NNO given.
[2016-03-14 21:05] VITALS: BP 110/76
[2016-03-14] MEDS: HYDROCODONE/APAP 10/325MG 1 EA TABLET GT PRN (21:19)
[2016-03-14] MEDS: ATORVASTATIN CALCIUM 20MG TABLET GT SCH (21:20)
[2016-03-15 07:40] LABS: CALCIUM, SERUM 8.7 mg/dL (8.5-10.1); CREATININE 0.8 mg/dL (0.6-1.3); PHOSPHORUS 3.3 mg/dL (2.5-4.9); POTASSIUM 4.3 mmol/L (3.5-5.1)
[2016-03-15 07:53] LABS: BASOPHILS % (AUTO) 0.5 % (0.0-2.0); EOSINOPHILS # (AUTO) 0.2 /CMM (0.0-0.7); EOSINOPHILS % (AUTO) 2.6 % (0.0-6.0); HEMATOCRIT 32 % (39-51); HEMOGLOBIN 9.9 g/dL (13.5-17.5); LYMPHOCYTES # (AUTO) 1.4 /CMM (0.8-4.8); LYMPHOCYTES % (AUTO) 16.4 % (20.0-44.0); MEAN CORPUSCULAR HEMOGLOBIN 25 PG (26.0-33.0); MEAN CORPUSCULAR HGB CONC 31 g/dl (31.0-36.0); MEAN CORPUSCULAR VOLUME 79 fL (80-96); MONOCYTES # (AUTO) 0.9 /CMM (0.1-1.30); MONOCYTES % (AUTO) 10.1 % (2.0-12.0); NEUTROPHILS # (AUTO) 5.9 /CMM (1.8-8.9); NEUTROPHILS % (AUTO) 70.4 % (43.0-81.0); PLATELET COUNT (AUTO) 498 /CMM (150-450); RDW COEFFICIENT OF VARIATION 18.9 (11.5-15.0); RED BLOOD CELL COUNT(AUTO) 4.03 MIL/uL (4.5-6.0); WHITE BLOOD COUNT (AUTO) 8.4 K/uL (4.3-11.0)
[2016-03-15 08:18] VITALS: BP 127/71
[2016-03-15] MEDS: ACIDOPHILUS/BULGARICUS 1 EACH TAB.CHEW GT SCH ×3 (09:57→17:12)
[2016-03-15] MEDS: CRANBERRY FRUIT 400 MG GT SCH (09:57)
[2016-03-15] MEDS: POLYETHYLENE GLYCOL 3350 17 GM POWD.PACK GT SCH (09:57)
[2016-03-15] MEDS: ESCITALOPRAM OXALATE (10 MG) 10 MG TABLET GT SCH (09:57)
[2016-03-15] MEDS: GABAPENTIN 300 MG CAPSULE GT SCH ×3 (09:57→17:12)
[2016-03-15] MEDS: METOPROLOL TARTRATE 25 MG TABLET GT SCH ×2 (09:57→17:12)
[2016-03-15] MEDS: BACLOFEN (10 MG) 10 MG TABLET GT SCH ×4 (09:57→21:06)
[2016-03-15] MEDS: CALCITRIOL ORAL SOLUTION 1 MCG/ML GT SCH (09:57)
[2016-03-15] MEDS: PROSOURCE / PROSTAT (PYXIS) 30 ML UDC GT SCH (09:58)
[2016-03-15] MEDS: FAMOTIDINE (20 MG) 20 MG TABLET GT SCH ×2 (09:58→21:06)
[2016-03-15] MEDS: ASCORBIC ACID 500 MG TABLET GT SCH ×2 (09:58→17:13)
[2016-03-15] MEDS: ENOXAPARIN SODIUM 40 MG/0.4 ML DISP.SYRIN SQ SCH (09:58)
[2016-03-15] MEDS: MULTIVIT, IRON, MIN NO. 8, FA 1 TAB GT SCH (09:58)
[2016-03-15] MEDS: CLOPIDOGREL BISULFATE 75 MG TABLET GT SCH (09:58)
[2016-03-15] MEDS: CALCIUM CARBONATE 500 MG TAB.CHEW GT SCH ×3 (09:58→17:12)
[2016-03-15] MEDS: HYDROCODONE/APAP 10/325MG 1 EA TABLET GT SCH (09:58)
[2016-03-15] MEDS: GENTAMICIN 0.1% OINT 15 GM TUBE TP SCH ×4 (10:30→21:07)
[2016-03-15] MEDS: Z GUARD REMEDY 4 OZ OINT TP SCH ×8 (10:30→21:07)
[2016-03-15] MEDS: NEOMY SULF/BACITRAC ZN/POLY 15 GM TUBE TP SCH ×2 (10:30→21:07)
[2016-03-15] MEDS: MINERAL OIL/PETROL OINT 396 GM JAR TP SCH ×3 (10:30→17:13)
[2016-03-15] MEDS: HYDROGEL DRESSING 90 GM TUBE TP SCH ×6 (10:30→21:07)
--- NOTE | 2016-03-15 14:00 | NUR ---
Seen by CARLI Hoffman. She is aware of pt's CBC result. No new order.
[2016-03-15] MEDS: HYDROGEN PEROXIDE 480 ML BOTTLE TP SCH ×2 (15:30→21:07)
[2016-03-15 20:26] VITALS: BP 104/75
[2016-03-15] MEDS: HYDROCODONE/APAP 10/325MG 1 EA TABLET GT PRN (21:06)
[2016-03-15] MEDS: ATORVASTATIN CALCIUM 20MG TABLET GT SCH (21:07)
[2016-03-16 08:07] VITALS: BP 117/76
[2016-03-16] MEDS: MINERAL OIL/PETROL OINT 396 GM JAR TP SCH ×3 (09:00→17:24)
[2016-03-16] MEDS: HYDROGEN PEROXIDE 480 ML BOTTLE TP SCH ×2 (09:00→21:06)
[2016-03-16] MEDS: NEOMY SULF/BACITRAC ZN/POLY 15 GM TUBE TP SCH ×2 (09:00→21:07)
[2016-03-16] MEDS: Z GUARD REMEDY 4 OZ OINT TP SCH ×8 (09:00→21:07)
[2016-03-16] MEDS: GENTAMICIN 0.1% OINT 15 GM TUBE TP SCH ×4 (09:00→21:06)
[2016-03-16] MEDS: HYDROGEL DRESSING 90 GM TUBE TP SCH ×6 (09:00→21:06)
[2016-03-16] MEDS: POLYETHYLENE GLYCOL 3350 17 GM POWD.PACK GT SCH (09:55)
[2016-03-16] MEDS: ACIDOPHILUS/BULGARICUS 1 EACH TAB.CHEW GT SCH ×3 (09:55→17:23)
[2016-03-16] MEDS: CALCITRIOL ORAL SOLUTION 1 MCG/ML GT SCH (09:55)
[2016-03-16] MEDS: GABAPENTIN 300 MG CAPSULE GT SCH ×3 (09:55→17:23)
[2016-03-16] MEDS: BACLOFEN (10 MG) 10 MG TABLET GT SCH ×4 (09:55→21:03)
[2016-03-16] MEDS: ESCITALOPRAM OXALATE (10 MG) 10 MG TABLET GT SCH (09:55)
[2016-03-16] MEDS: METOPROLOL TARTRATE 25 MG TABLET GT SCH ×2 (09:55→17:23)
[2016-03-16] MEDS: CRANBERRY FRUIT 400 MG GT SCH (09:55)
[2016-03-16] MEDS: HYDROCODONE/APAP 10/325MG 1 EA TABLET GT SCH (09:56)
[2016-03-16] MEDS: CLOPIDOGREL BISULFATE 75 MG TABLET GT SCH (09:56)
[2016-03-16] MEDS: ENOXAPARIN SODIUM 40 MG/0.4 ML DISP.SYRIN SQ SCH (09:56)
[2016-03-16] MEDS: ASCORBIC ACID 500 MG TABLET GT SCH ×2 (09:56→17:23)
[2016-03-16] MEDS: PROSOURCE / PROSTAT (PYXIS) 30 ML UDC GT SCH (09:56)
[2016-03-16] MEDS: MULTIVIT, IRON, MIN NO. 8, FA 1 TAB GT SCH (09:56)
[2016-03-16] MEDS: FAMOTIDINE (20 MG) 20 MG TABLET GT SCH ×2 (09:56→21:03)
[2016-03-16] MEDS: CALCIUM CARBONATE 500 MG TAB.CHEW GT SCH ×3 (09:56→17:23)
[2016-03-16] MEDS: METHOCARBAMOL (750MG) 750 MG TABLET PO PRN (12:55)
[2016-03-16 19:53] VITALS: BP 102/59
[2016-03-16] MEDS: ATORVASTATIN CALCIUM 20MG TABLET GT SCH (21:07)
[2016-03-16] MEDS: HYDROCODONE/APAP 10/325MG 1 EA TABLET GT PRN (21:59)
[2016-03-17 07:44] VITALS: BP 113/74
[2016-03-17] MEDS: Z GUARD REMEDY 4 OZ OINT TP SCH ×8 (09:00→21:51)
[2016-03-17] MEDS: MINERAL OIL/PETROL OINT 396 GM JAR TP SCH ×3 (09:00→17:29)
[2016-03-17] MEDS: GENTAMICIN 0.1% OINT 15 GM TUBE TP SCH ×4 (09:00→21:51)
[2016-03-17] MEDS: HYDROGEL DRESSING 90 GM TUBE TP SCH ×6 (09:00→21:50)
[2016-03-17] MEDS: HYDROGEN PEROXIDE 480 ML BOTTLE TP SCH ×2 (09:00→21:51)
[2016-03-17] MEDS: ACIDOPHILUS/BULGARICUS 1 EACH TAB.CHEW GT SCH ×3 (09:42→17:27)
[2016-03-17] MEDS: ESCITALOPRAM OXALATE (10 MG) 10 MG TABLET GT SCH (09:42)
[2016-03-17] MEDS: CRANBERRY FRUIT 400 MG GT SCH (09:42)
[2016-03-17] MEDS: BACLOFEN (10 MG) 10 MG TABLET GT SCH ×4 (09:42→21:50)
[2016-03-17] MEDS: CALCITRIOL ORAL SOLUTION 1 MCG/ML GT SCH (09:42)
[2016-03-17] MEDS: FAMOTIDINE (20 MG) 20 MG TABLET GT SCH ×2 (09:43→21:51)
[2016-03-17] MEDS: CLOPIDOGREL BISULFATE 75 MG TABLET GT SCH (09:43)
[2016-03-17] MEDS: GABAPENTIN 300 MG CAPSULE GT SCH ×3 (09:43→17:28)
[2016-03-17] MEDS: POLYETHYLENE GLYCOL 3350 17 GM POWD.PACK GT SCH (09:43)
[2016-03-17] MEDS: METOPROLOL TARTRATE 25 MG TABLET GT SCH ×2 (09:43→17:28)
[2016-03-17] MEDS: HYDROCODONE/APAP 10/325MG 1 EA TABLET GT SCH (09:43)
[2016-03-17] MEDS: MULTIVIT, IRON, MIN NO. 8, FA 1 TAB GT SCH (09:44)
[2016-03-17] MEDS: ENOXAPARIN SODIUM 40 MG/0.4 ML DISP.SYRIN SQ SCH (09:44)
[2016-03-17] MEDS: PROSOURCE / PROSTAT (PYXIS) 30 ML UDC GT SCH (09:44)
[2016-03-17] MEDS: ASCORBIC ACID 500 MG TABLET GT SCH ×2 (09:44→17:28)
[2016-03-17] MEDS: CALCIUM CARBONATE 500 MG TAB.CHEW GT SCH ×3 (09:44→17:28)
--- NOTE | 2016-03-17 16:00 | NUR ---
Seen by Peggy Hoffman SURVEY ENGINEER lab results CBC, BMP,MG and Phos results reviewed with no new order.
[2016-03-17] MEDS: METHOCARBAMOL (750MG) 750 MG TABLET PO PRN (17:28)
[2016-03-17 20:23] VITALS: BP 98/59
[2016-03-17] MEDS: ATORVASTATIN CALCIUM 20MG TABLET GT SCH (21:51)
[2016-03-17] MEDS: HYDROCODONE/APAP 10/325MG 1 EA TABLET GT PRN (22:53)
[2016-03-18] MEDS: METHOCARBAMOL (750MG) 750 MG TABLET PO PRN ×2 (05:35→18:20)
[2016-03-18 08:14] VITALS: BP 109/68
[2016-03-18] MEDS: CALCITRIOL ORAL SOLUTION 1 MCG/ML GT SCH (08:38)
[2016-03-18] MEDS: CRANBERRY FRUIT 400 MG GT SCH (08:38)
[2016-03-18] MEDS: GABAPENTIN 300 MG CAPSULE GT SCH ×3 (08:39→17:00)
[2016-03-18] MEDS: POLYETHYLENE GLYCOL 3350 17 GM POWD.PACK GT SCH (08:39)
[2016-03-18] MEDS: METOPROLOL TARTRATE 25 MG TABLET GT SCH ×2 (08:39→17:00)
[2016-03-18] MEDS: BACLOFEN (10 MG) 10 MG TABLET GT SCH ×4 (08:39→21:47)
[2016-03-18] MEDS: ESCITALOPRAM OXALATE (10 MG) 10 MG TABLET GT SCH (08:39)
[2016-03-18] MEDS: ACIDOPHILUS/BULGARICUS 1 EACH TAB.CHEW GT SCH ×3 (08:39→17:00)
[2016-03-18] MEDS: MULTIVIT, IRON, MIN NO. 8, FA 1 TAB GT SCH (08:40)
[2016-03-18] MEDS: FAMOTIDINE (20 MG) 20 MG TABLET GT SCH ×2 (08:40→21:47)
[2016-03-18] MEDS: ASCORBIC ACID 500 MG TABLET GT SCH ×2 (08:40→17:00)
[2016-03-18] MEDS: ENOXAPARIN SODIUM 40 MG/0.4 ML DISP.SYRIN SQ SCH (08:40)
[2016-03-18] MEDS: PROSOURCE / PROSTAT (PYXIS) 30 ML UDC GT SCH (08:40)
[2016-03-18] MEDS: HYDROCODONE/APAP 10/325MG 1 EA TABLET GT SCH (08:40)
[2016-03-18] MEDS: CALCIUM CARBONATE 500 MG TAB.CHEW GT SCH ×3 (08:40→17:00)
[2016-03-18] MEDS: CLOPIDOGREL BISULFATE 75 MG TABLET GT SCH (08:40)
[2016-03-18] MEDS: MINERAL OIL/PETROL OINT 396 GM JAR TP SCH ×3 (09:00→17:00)
[2016-03-18] MEDS: Z GUARD REMEDY 4 OZ OINT TP SCH ×8 (09:00→21:48)
[2016-03-18] MEDS: HYDROGEL DRESSING 90 GM TUBE TP SCH ×6 (09:00→21:47)
[2016-03-18] MEDS: HYDROGEN PEROXIDE 480 ML BOTTLE TP SCH ×2 (09:00→21:48)
[2016-03-18] MEDS: GENTAMICIN 0.1% OINT 15 GM TUBE TP SCH ×4 (09:00→21:48)
[2016-03-18 19:46] VITALS: BP 105/59
[2016-03-18] MEDS: ATORVASTATIN CALCIUM 20MG TABLET GT SCH (21:48)
[2016-03-19] MEDS: HYDROCODONE/APAP 10/325MG 1 EA TABLET GT PRN (02:13)
[2016-03-19] MEDS: METHOCARBAMOL (750MG) 750 MG TABLET PO PRN ×2 (06:25→18:42)
[2016-03-19 07:19] VITALS: BP 110/73
[2016-03-19] MEDS: PROSOURCE / PROSTAT (PYXIS) 30 ML UDC GT SCH (09:06)
[2016-03-19] MEDS: METOPROLOL TARTRATE 25 MG TABLET GT SCH ×2 (09:06→17:00)
[2016-03-19] MEDS: POLYETHYLENE GLYCOL 3350 17 GM POWD.PACK GT SCH (09:06)
[2016-03-19] MEDS: ESCITALOPRAM OXALATE (10 MG) 10 MG TABLET GT SCH (09:06)
[2016-03-19] MEDS: CRANBERRY FRUIT 400 MG GT SCH (09:06)
[2016-03-19] MEDS: CLOPIDOGREL BISULFATE 75 MG TABLET GT SCH (09:06)
[2016-03-19] MEDS: FAMOTIDINE (20 MG) 20 MG TABLET GT SCH ×2 (09:06→21:47)
[2016-03-19] MEDS: MULTIVIT, IRON, MIN NO. 8, FA 1 TAB GT SCH (09:06)
[2016-03-19] MEDS: GABAPENTIN 300 MG CAPSULE GT SCH ×3 (09:06→17:05)
[2016-03-19] MEDS: ACIDOPHILUS/BULGARICUS 1 EACH TAB.CHEW GT SCH ×3 (09:06→17:05)
[2016-03-19] MEDS: BACLOFEN (10 MG) 10 MG TABLET GT SCH ×4 (09:06→21:47)
[2016-03-19] MEDS: CALCITRIOL ORAL SOLUTION 1 MCG/ML GT SCH (09:06)
[2016-03-19] MEDS: CALCIUM CARBONATE 500 MG TAB.CHEW GT SCH ×3 (09:07→17:05)
[2016-03-19] MEDS: ASCORBIC ACID 500 MG TABLET GT SCH ×2 (09:07→17:05)
[2016-03-19] MEDS: ENOXAPARIN SODIUM 40 MG/0.4 ML DISP.SYRIN SQ SCH (09:08)
[2016-03-19] MEDS: HYDROCODONE/APAP 10/325MG 1 EA TABLET GT SCH (10:32)
[2016-03-19] MEDS: GENTAMICIN 0.1% OINT 15 GM TUBE TP SCH ×4 (11:30→21:47)
[2016-03-19] MEDS: MINERAL OIL/PETROL OINT 396 GM JAR TP SCH ×3 (11:30→17:05)
[2016-03-19] MEDS: HYDROGEN PEROXIDE 480 ML BOTTLE TP SCH ×2 (11:30→21:47)
[2016-03-19] MEDS: HYDROGEL DRESSING 90 GM TUBE TP SCH ×6 (11:30→21:47)
[2016-03-19] MEDS: Z GUARD REMEDY 4 OZ OINT TP SCH ×8 (11:30→21:48)
[2016-03-19 19:38] VITALS: BP 98/64
[2016-03-19] MEDS: ATORVASTATIN CALCIUM 20MG TABLET GT SCH (21:48)
[2016-03-20] MEDS: HYDROCODONE/APAP 10/325MG 1 EA TABLET GT PRN (03:47)
[2016-03-20] MEDS: ACETAMINOPHEN 650 MG/20 ML UDC- FOR SA PATIENTS ONLY GT PRN (08:10)
[2016-03-20 08:18] VITALS: BP 114/69
[2016-03-20] MEDS: HYDROCODONE/APAP 10/325MG 1 EA TABLET GT SCH (09:00)
[2016-03-20] MEDS: CALCITRIOL ORAL SOLUTION 1 MCG/ML GT SCH (09:53)
[2016-03-20] MEDS: BACLOFEN (10 MG) 10 MG TABLET GT SCH ×4 (09:53→21:09)
[2016-03-20] MEDS: CRANBERRY FRUIT 400 MG GT SCH (09:53)
[2016-03-20] MEDS: FAMOTIDINE (20 MG) 20 MG TABLET GT SCH ×2 (09:53→21:09)
[2016-03-20] MEDS: ACIDOPHILUS/BULGARICUS 1 EACH TAB.CHEW GT SCH ×3 (09:53→17:29)
[2016-03-20] MEDS: CLOPIDOGREL BISULFATE 75 MG TABLET GT SCH (09:53)
[2016-03-20] MEDS: POLYETHYLENE GLYCOL 3350 17 GM POWD.PACK GT SCH (09:53)
[2016-03-20] MEDS: ESCITALOPRAM OXALATE (10 MG) 10 MG TABLET GT SCH (09:53)
[2016-03-20] MEDS: GABAPENTIN 300 MG CAPSULE GT SCH ×3 (09:53→17:30)
[2016-03-20] MEDS: METOPROLOL TARTRATE 25 MG TABLET GT SCH ×2 (09:53→17:00)
[2016-03-20] MEDS: PROSOURCE / PROSTAT (PYXIS) 30 ML UDC GT SCH (09:53)
[2016-03-20] MEDS: MULTIVIT, IRON, MIN NO. 8, FA 1 TAB GT SCH (09:53)
[2016-03-20] MEDS: ASCORBIC ACID 500 MG TABLET GT SCH ×2 (09:54→17:30)
[2016-03-20] MEDS: CALCIUM CARBONATE 500 MG TAB.CHEW GT SCH ×3 (09:54→17:30)
[2016-03-20] MEDS: ENOXAPARIN SODIUM 40 MG/0.4 ML DISP.SYRIN SQ SCH (09:57)
[2016-03-20] MEDS: HYDROGEL DRESSING 90 GM TUBE TP SCH ×6 (09:58→21:09)
[2016-03-20] MEDS: GENTAMICIN 0.1% OINT 15 GM TUBE TP SCH ×4 (09:58→21:10)
[2016-03-20] MEDS: HYDROGEN PEROXIDE 480 ML BOTTLE TP SCH ×2 (09:58→21:10)
[2016-03-20] MEDS: Z GUARD REMEDY 4 OZ OINT TP SCH ×8 (09:58→21:10)
[2016-03-20] MEDS: MINERAL OIL/PETROL OINT 396 GM JAR TP SCH ×3 (09:58→17:30)
[2016-03-20] MEDS: ATORVASTATIN CALCIUM 20MG TABLET GT SCH (21:10)
[2016-03-20 23:58] VITALS: BP 111/71
[2016-03-21 07:45] VITALS: BP 119/72
[2016-03-21] MEDS: CRANBERRY FRUIT 400 MG GT SCH (09:08)
[2016-03-21] MEDS: POLYETHYLENE GLYCOL 3350 17 GM POWD.PACK GT SCH (09:08)
[2016-03-21] MEDS: ESCITALOPRAM OXALATE (10 MG) 10 MG TABLET GT SCH (09:08)
[2016-03-21] MEDS: METOPROLOL TARTRATE 25 MG TABLET GT SCH ×2 (09:08→17:47)
[2016-03-21] MEDS: ACIDOPHILUS/BULGARICUS 1 EACH TAB.CHEW GT SCH ×3 (09:08→17:47)
[2016-03-21] MEDS: BACLOFEN (10 MG) 10 MG TABLET GT SCH ×4 (09:08→21:07)
[2016-03-21] MEDS: GABAPENTIN 300 MG CAPSULE GT SCH ×3 (09:08→17:47)
[2016-03-21] MEDS: CALCITRIOL ORAL SOLUTION 1 MCG/ML GT SCH (09:08)
[2016-03-21] MEDS: PROSOURCE / PROSTAT (PYXIS) 30 ML UDC GT SCH (09:09)
[2016-03-21] MEDS: ASCORBIC ACID 500 MG TABLET GT SCH ×2 (09:09→17:47)
[2016-03-21] MEDS: ENOXAPARIN SODIUM 40 MG/0.4 ML DISP.SYRIN SQ SCH (09:09)
[2016-03-21] MEDS: FAMOTIDINE (20 MG) 20 MG TABLET GT SCH ×2 (09:09→21:07)
[2016-03-21] MEDS: MULTIVIT, IRON, MIN NO. 8, FA 1 TAB GT SCH (09:09)
[2016-03-21] MEDS: CALCIUM CARBONATE 500 MG TAB.CHEW GT SCH ×3 (09:09→17:47)
[2016-03-21] MEDS: CLOPIDOGREL BISULFATE 75 MG TABLET GT SCH (09:09)
[2016-03-21] MEDS: HYDROCODONE/APAP 10/325MG 1 EA TABLET GT SCH (12:15)
[2016-03-21] MEDS: MINERAL OIL/PETROL OINT 396 GM JAR TP SCH ×2 (13:00→17:48)
[2016-03-21] MEDS: GENTAMICIN 0.1% OINT 15 GM TUBE TP SCH ×4 (13:00→21:07)
[2016-03-21] MEDS: HYDROGEN PEROXIDE 480 ML BOTTLE TP SCH ×2 (13:00→21:07)
[2016-03-21] MEDS: Z GUARD REMEDY 4 OZ OINT TP SCH ×7 (13:00→21:08)
[2016-03-21] MEDS: HYDROGEL DRESSING 90 GM TUBE TP SCH ×5 (13:00→21:07)
[2016-03-21 20:02] VITALS: BP 112/65
[2016-03-21] MEDS: ATORVASTATIN CALCIUM 20MG TABLET GT SCH (21:08)
--- NOTE | 2016-03-22 06:55 | NUR ---
RN NOTES Received new order from Dr. Curiel to continue Lovenox 40mg SQ daily for DVT prophylaxis, noted and carried out.
[2016-03-22 07:45] VITALS: BP 110/67
[2016-03-22] MEDS: CRANBERRY FRUIT 400 MG GT SCH (09:53)
[2016-03-22] MEDS: ESCITALOPRAM OXALATE (10 MG) 10 MG TABLET GT SCH (09:53)
[2016-03-22] MEDS: BACLOFEN (10 MG) 10 MG TABLET GT SCH ×4 (09:53→21:07)
[2016-03-22] MEDS: CALCITRIOL ORAL SOLUTION 1 MCG/ML GT SCH (09:53)
[2016-03-22] MEDS: ACIDOPHILUS/BULGARICUS 1 EACH TAB.CHEW GT SCH ×3 (09:53→17:00)
[2016-03-22] MEDS: FAMOTIDINE (20 MG) 20 MG TABLET GT SCH ×2 (09:54→21:07)
[2016-03-22] MEDS: CLOPIDOGREL BISULFATE 75 MG TABLET GT SCH (09:54)
[2016-03-22] MEDS: PROSOURCE / PROSTAT (PYXIS) 30 ML UDC GT SCH (09:54)
[2016-03-22] MEDS: POLYETHYLENE GLYCOL 3350 17 GM POWD.PACK GT SCH (09:54)
[2016-03-22] MEDS: GABAPENTIN 300 MG CAPSULE GT SCH ×3 (09:54→17:00)
[2016-03-22] MEDS: METOPROLOL TARTRATE 25 MG TABLET GT SCH ×2 (09:54→17:00)
[2016-03-22] MEDS: ENOXAPARIN SODIUM 40 MG/0.4 ML DISP.SYRIN SQ SCH (09:55)
[2016-03-22] MEDS: ASCORBIC ACID 500 MG TABLET GT SCH ×2 (09:55→17:00)
[2016-03-22] MEDS: CALCIUM CARBONATE 500 MG TAB.CHEW GT SCH ×3 (09:55→17:00)
[2016-03-22] MEDS: MULTIVIT, IRON, MIN NO. 8, FA 1 TAB GT SCH (09:55)
[2016-03-22] MEDS: HYDROCODONE/APAP 10/325MG 1 EA TABLET GT PRN (09:56)
[2016-03-22] MEDS: MINERAL OIL/PETROL OINT 396 GM JAR TP SCH ×3 (13:00→17:00)
[2016-03-22] MEDS: HYDROCODONE/APAP 10/325MG 1 EA TABLET GT SCH (15:30)
[2016-03-22] MEDS: GENTAMICIN 0.1% OINT 15 GM TUBE TP SCH ×4 (16:00→21:07)
[2016-03-22] MEDS: HYDROGEN PEROXIDE 480 ML BOTTLE TP SCH ×2 (16:00→21:07)
[2016-03-22] MEDS: HYDROGEL DRESSING 90 GM TUBE TP SCH ×4 (16:00→21:07)
[2016-03-22] MEDS: Z GUARD REMEDY 4 OZ OINT TP SCH ×4 (16:00→21:08)
[2016-03-22] MEDS: ATORVASTATIN CALCIUM 20MG TABLET GT SCH (21:08)
[2016-03-22 21:32] VITALS: BP 104/68
[2016-03-23 07:44] VITALS: BP 109/67
[2016-03-23] MEDS: CALCITRIOL ORAL SOLUTION 1 MCG/ML GT SCH (09:00)
[2016-03-23] MEDS: GENTAMICIN 0.1% OINT 15 GM TUBE TP SCH ×4 (09:00→20:39)
[2016-03-23] MEDS: HYDROGEL DRESSING 90 GM TUBE TP SCH ×4 (09:00→20:38)
[2016-03-23] MEDS: FAMOTIDINE (20 MG) 20 MG TABLET GT SCH ×2 (09:00→20:38)
[2016-03-23] MEDS: HYDROGEN PEROXIDE 480 ML BOTTLE TP SCH ×2 (09:00→20:39)
[2016-03-23] MEDS: MINERAL OIL/PETROL OINT 396 GM JAR TP SCH ×3 (09:00→17:25)
[2016-03-23] MEDS: Z GUARD REMEDY 4 OZ OINT TP SCH ×4 (09:00→20:39)
[2016-03-23] MEDS: BACLOFEN (10 MG) 10 MG TABLET GT SCH ×4 (09:19→20:38)
[2016-03-23] MEDS: ESCITALOPRAM OXALATE (10 MG) 10 MG TABLET GT SCH (09:19)
[2016-03-23] MEDS: CRANBERRY FRUIT 400 MG GT SCH (09:19)
[2016-03-23] MEDS: ACIDOPHILUS/BULGARICUS 1 EACH TAB.CHEW GT SCH ×3 (09:19→17:25)
[2016-03-23] MEDS: GABAPENTIN 300 MG CAPSULE GT SCH ×3 (09:20→17:25)
[2016-03-23] MEDS: CLOPIDOGREL BISULFATE 75 MG TABLET GT SCH (09:20)
[2016-03-23] MEDS: PROSOURCE / PROSTAT (PYXIS) 30 ML UDC GT SCH (09:20)
[2016-03-23] MEDS: METOPROLOL TARTRATE 25 MG TABLET GT SCH ×2 (09:20→17:24)
[2016-03-23] MEDS: HYDROCODONE/APAP 10/325MG 1 EA TABLET GT SCH (09:20)
[2016-03-23] MEDS: POLYETHYLENE GLYCOL 3350 17 GM POWD.PACK GT SCH (09:20)
[2016-03-23] MEDS: ASCORBIC ACID 500 MG TABLET GT SCH ×2 (09:21→17:24)
[2016-03-23] MEDS: MULTIVIT, IRON, MIN NO. 8, FA 1 TAB GT SCH (09:21)
[2016-03-23] MEDS: CALCIUM CARBONATE 500 MG TAB.CHEW GT SCH ×3 (09:21→17:25)
[2016-03-23] MEDS: ENOXAPARIN SODIUM 40 MG/0.4 ML DISP.SYRIN SQ SCH (09:21)
--- NOTE | 2016-03-23 12:30 | NUR ---
Resident was taken today to his dental appointment with Dr. Lopes and was accompanied by his nurse and one CANDY ROLLING MACHINE OPERATOR. Procedure was performed (dental filling).
[2016-03-23 20:17] VITALS: BP 111/67
[2016-03-23] MEDS: HYDROCODONE/APAP 10/325MG 1 EA TABLET GT PRN (20:41)
[2016-03-23] MEDS: ATORVASTATIN CALCIUM 20MG TABLET GT SCH (21:09)
[2016-03-24] MEDS: HYDROCODONE/APAP 10/325MG 1 EA TABLET GT PRN ×2 (04:44→23:56)
[2016-03-24 07:31] VITALS: BP 118/85
[2016-03-24] MEDS: Z GUARD REMEDY 4 OZ OINT TP SCH (09:00)
[2016-03-24] MEDS: MINERAL OIL/PETROL OINT 396 GM JAR TP SCH ×3 (09:00→16:45)
[2016-03-24] MEDS: HYDROGEL DRESSING 90 GM TUBE TP SCH (09:00)
[2016-03-24] MEDS: HYDROGEN PEROXIDE 480 ML BOTTLE TP SCH ×2 (09:00→23:00)
[2016-03-24] MEDS: GENTAMICIN 0.1% OINT 15 GM TUBE TP SCH ×3 (09:00→23:00)
[2016-03-24] MEDS: CRANBERRY FRUIT 400 MG GT SCH (09:03)
[2016-03-24] MEDS: ESCITALOPRAM OXALATE (10 MG) 10 MG TABLET GT SCH (09:03)
[2016-03-24] MEDS: ACIDOPHILUS/BULGARICUS 1 EACH TAB.CHEW GT SCH ×3 (09:03→16:44)
[2016-03-24] MEDS: BACLOFEN (10 MG) 10 MG TABLET GT SCH ×4 (09:03→21:50)
[2016-03-24] MEDS: CALCITRIOL ORAL SOLUTION 1 MCG/ML GT SCH (09:03)
[2016-03-24] MEDS: GABAPENTIN 300 MG CAPSULE GT SCH ×3 (09:06→16:44)
[2016-03-24] MEDS: POLYETHYLENE GLYCOL 3350 17 GM POWD.PACK GT SCH (09:06)
[2016-03-24] MEDS: METOPROLOL TARTRATE 25 MG TABLET GT SCH ×2 (09:06→16:44)
[2016-03-24] MEDS: ENOXAPARIN SODIUM 40 MG/0.4 ML DISP.SYRIN SQ SCH (09:07)
[2016-03-24] MEDS: HYDROCODONE/APAP 10/325MG 1 EA TABLET GT SCH (09:07)
[2016-03-24] MEDS: ASCORBIC ACID 500 MG TABLET GT SCH ×2 (09:07→16:44)
[2016-03-24] MEDS: CLOPIDOGREL BISULFATE 75 MG TABLET GT SCH (09:07)
[2016-03-24] MEDS: PROSOURCE / PROSTAT (PYXIS) 30 ML UDC GT SCH (09:07)
[2016-03-24] MEDS: FAMOTIDINE (20 MG) 20 MG TABLET GT SCH ×2 (09:07→21:50)
[2016-03-24] MEDS: MULTIVIT, IRON, MIN NO. 8, FA 1 TAB GT SCH (09:07)
[2016-03-24] MEDS: CALCIUM CARBONATE 500 MG TAB.CHEW GT SCH ×3 (09:07→16:44)
[2016-03-24] MEDS: METHOCARBAMOL (750MG) 750 MG TABLET PO PRN (09:18)
[2016-03-24 20:27] VITALS: BP 100/63
--- NOTE | 2016-03-24 21:00 | NUR ---
RN NOTES Received new order from Dr. Walker to renew txs to sacral ulcer and left upper midback wound, noted and carried out.
[2016-03-24] MEDS: ATORVASTATIN CALCIUM 20MG TABLET GT SCH (21:50)
[2016-03-25] MEDS: METHOCARBAMOL (750MG) 750 MG TABLET PO PRN (04:12)
[2016-03-25] MEDS: HYDROCODONE/APAP 10/325MG 1 EA TABLET GT PRN (06:41)
[2016-03-25 07:57] VITALS: BP 99/61
[2016-03-25] MEDS: HYDROGEN PEROXIDE 480 ML BOTTLE TP SCH ×2 (09:00→21:51)
[2016-03-25] MEDS: MINERAL OIL/PETROL OINT 396 GM JAR TP SCH ×3 (09:00→17:00)
[2016-03-25] MEDS ORDERED: GENTAMICIN 0.1% CREAM 15 GM TUBE TP SCH (09:00)
[2016-03-25] MEDS: HYDROGEL DRESSING 90 GM TUBE TP SCH ×4 (09:00→21:49)
[2016-03-25] MEDS: GENTAMICIN 0.1% OINT 15 GM TUBE TP SCH ×4 (09:00→21:59)
[2016-03-25] MEDS: ACIDOPHILUS/BULGARICUS 1 EACH TAB.CHEW GT SCH ×3 (09:41→17:00)
[2016-03-25] MEDS: CALCITRIOL ORAL SOLUTION 1 MCG/ML GT SCH (09:41)
[2016-03-25] MEDS: CRANBERRY FRUIT 400 MG GT SCH (09:41)
[2016-03-25] MEDS: ESCITALOPRAM OXALATE (10 MG) 10 MG TABLET GT SCH (09:41)
[2016-03-25] MEDS: BACLOFEN (10 MG) 10 MG TABLET GT SCH ×4 (09:42→21:45)
[2016-03-25] MEDS: GABAPENTIN 300 MG CAPSULE GT SCH ×3 (09:43→17:00)
[2016-03-25] MEDS: POLYETHYLENE GLYCOL 3350 17 GM POWD.PACK GT SCH (09:43)
[2016-03-25] MEDS: HYDROCODONE/APAP 10/325MG 1 EA TABLET GT SCH (09:43)
[2016-03-25] MEDS: FAMOTIDINE (20 MG) 20 MG TABLET GT SCH ×2 (09:43→21:45)
[2016-03-25] MEDS: PROSOURCE / PROSTAT (PYXIS) 30 ML UDC GT SCH (09:45)
[2016-03-25] MEDS: CLOPIDOGREL BISULFATE 75 MG TABLET GT SCH (09:45)
[2016-03-25] MEDS: ASCORBIC ACID 500 MG TABLET GT SCH ×2 (09:46→17:00)
[2016-03-25] MEDS: CALCIUM CARBONATE 500 MG TAB.CHEW GT SCH ×3 (09:46→17:00)
[2016-03-25] MEDS: MULTIVIT, IRON, MIN NO. 8, FA 1 TAB GT SCH (09:46)
[2016-03-25] MEDS: ENOXAPARIN SODIUM 40 MG/0.4 ML DISP.SYRIN SQ SCH (09:48)
[2016-03-25] MEDS: METOPROLOL TARTRATE 25 MG TABLET GT SCH ×2 (09:53→17:00)
[2016-03-25 20:01] VITALS: BP 97/56
[2016-03-25] MEDS: ATORVASTATIN CALCIUM 20MG TABLET GT SCH (21:51)
[2016-03-26] MEDS: HYDROCODONE/APAP 10/325MG 1 EA TABLET GT PRN ×3 (00:28→23:19)
[2016-03-26 08:07] VITALS: BP 108/72
[2016-03-26] MEDS: CALCITRIOL ORAL SOLUTION 1 MCG/ML GT SCH (08:21)
[2016-03-26] MEDS: CRANBERRY FRUIT 400 MG GT SCH (08:21)
[2016-03-26] MEDS: METOPROLOL TARTRATE 25 MG TABLET GT SCH ×2 (08:22→17:00)
[2016-03-26] MEDS: POLYETHYLENE GLYCOL 3350 17 GM POWD.PACK GT SCH (08:22)
[2016-03-26] MEDS: ESCITALOPRAM OXALATE (10 MG) 10 MG TABLET GT SCH (08:22)
[2016-03-26] MEDS: BACLOFEN (10 MG) 10 MG TABLET GT SCH ×4 (08:22→21:53)
[2016-03-26] MEDS: ACIDOPHILUS/BULGARICUS 1 EACH TAB.CHEW GT SCH ×3 (08:22→17:00)
[2016-03-26] MEDS: HYDROCODONE/APAP 10/325MG 1 EA TABLET GT SCH (08:23)
[2016-03-26] MEDS: GABAPENTIN 300 MG CAPSULE GT SCH ×3 (08:23→17:00)
[2016-03-26] MEDS: CALCIUM CARBONATE 500 MG TAB.CHEW GT SCH ×3 (08:24→17:00)
[2016-03-26] MEDS: FAMOTIDINE (20 MG) 20 MG TABLET GT SCH ×2 (08:24→21:53)
[2016-03-26] MEDS: PROSOURCE / PROSTAT (PYXIS) 30 ML UDC GT SCH (08:24)
[2016-03-26] MEDS: MULTIVIT, IRON, MIN NO. 8, FA 1 TAB GT SCH (08:24)
[2016-03-26] MEDS: ASCORBIC ACID 500 MG TABLET GT SCH ×2 (08:24→17:00)
[2016-03-26] MEDS: CLOPIDOGREL BISULFATE 75 MG TABLET GT SCH (08:24)
[2016-03-26] MEDS: MINERAL OIL/PETROL OINT 396 GM JAR TP SCH ×3 (08:25→17:00)
[2016-03-26] MEDS: ENOXAPARIN SODIUM 40 MG/0.4 ML DISP.SYRIN SQ SCH (08:25)
[2016-03-26] MEDS: HYDROGEN PEROXIDE 480 ML BOTTLE TP SCH ×2 (09:23→21:54)
[2016-03-26] MEDS: HYDROGEL DRESSING 90 GM TUBE TP SCH ×4 (09:23→21:53)
[2016-03-26] MEDS: GENTAMICIN 0.1% OINT 15 GM TUBE TP SCH ×4 (09:23→21:54)
[2016-03-26 19:36] VITALS: BP 112/58
[2016-03-26] MEDS: ATORVASTATIN CALCIUM 20MG TABLET GT SCH (21:54)
[2016-03-27] MEDS: HYDROCODONE/APAP 10/325MG 1 EA TABLET GT PRN (05:49)
[2016-03-27 08:08] VITALS: BP 100/56
[2016-03-27] MEDS: CRANBERRY FRUIT 400 MG GT SCH (08:58)
[2016-03-27] MEDS: CALCITRIOL ORAL SOLUTION 1 MCG/ML GT SCH (08:58)
[2016-03-27] MEDS: PROSOURCE / PROSTAT (PYXIS) 30 ML UDC GT SCH (08:59)
[2016-03-27] MEDS: CALCIUM CARBONATE 500 MG TAB.CHEW GT SCH ×3 (08:59→16:41)
[2016-03-27] MEDS: ASCORBIC ACID 500 MG TABLET GT SCH ×2 (08:59→16:41)
[2016-03-27] MEDS: CLOPIDOGREL BISULFATE 75 MG TABLET GT SCH (08:59)
[2016-03-27] MEDS: ESCITALOPRAM OXALATE (10 MG) 10 MG TABLET GT SCH (08:59)
[2016-03-27] MEDS: POLYETHYLENE GLYCOL 3350 17 GM POWD.PACK GT SCH (08:59)
[2016-03-27] MEDS: HYDROCODONE/APAP 10/325MG 1 EA TABLET GT SCH (08:59)
[2016-03-27] MEDS: METOPROLOL TARTRATE 25 MG TABLET GT SCH ×2 (08:59→16:41)
[2016-03-27] MEDS: BACLOFEN (10 MG) 10 MG TABLET GT SCH ×4 (08:59→20:59)
[2016-03-27] MEDS: FAMOTIDINE (20 MG) 20 MG TABLET GT SCH ×2 (08:59→20:59)
[2016-03-27] MEDS: GABAPENTIN 300 MG CAPSULE GT SCH ×3 (08:59→16:41)
[2016-03-27] MEDS: ACIDOPHILUS/BULGARICUS 1 EACH TAB.CHEW GT SCH ×3 (08:59→16:41)
[2016-03-27] MEDS: MULTIVIT, IRON, MIN NO. 8, FA 1 TAB GT SCH (08:59)
[2016-03-27] MEDS: GENTAMICIN 0.1% OINT 15 GM TUBE TP SCH ×4 (09:00→20:59)
[2016-03-27] MEDS: MINERAL OIL/PETROL OINT 396 GM JAR TP SCH ×3 (09:00→16:51)
[2016-03-27] MEDS: HYDROGEN PEROXIDE 480 ML BOTTLE TP SCH ×2 (09:00→21:00)
[2016-03-27] MEDS: HYDROGEL DRESSING 90 GM TUBE TP SCH ×4 (09:00→20:59)
[2016-03-27] MEDS: ENOXAPARIN SODIUM 40 MG/0.4 ML DISP.SYRIN SQ SCH (09:00)
[2016-03-27] MEDS: METHOCARBAMOL (750MG) 750 MG TABLET PO PRN (17:50)
[2016-03-27 20:01] VITALS: BP 99/63
[2016-03-27] MEDS: ATORVASTATIN CALCIUM 20MG TABLET GT SCH (21:00)
[2016-03-28 08:00] VITALS: BP 110/72
[2016-03-28] MEDS: METOPROLOL TARTRATE 25 MG TABLET GT SCH ×2 (09:00→17:00)
[2016-03-28] MEDS: MULTIVIT, IRON, MIN NO. 8, FA 1 TAB GT SCH (09:00)
[2016-03-28] MEDS: PROSOURCE / PROSTAT (PYXIS) 30 ML UDC GT SCH (09:00)
[2016-03-28] MEDS: ENOXAPARIN SODIUM 40 MG/0.4 ML DISP.SYRIN SQ SCH (09:00)
[2016-03-28] MEDS: ASCORBIC ACID 500 MG TABLET GT SCH ×2 (09:00→17:00)
[2016-03-28] MEDS: MINERAL OIL/PETROL OINT 396 GM JAR TP SCH ×3 (09:00→17:00)
[2016-03-28] MEDS: CALCIUM CARBONATE 500 MG TAB.CHEW GT SCH ×3 (09:00→17:00)
[2016-03-28] MEDS: ACIDOPHILUS/BULGARICUS 1 EACH TAB.CHEW GT SCH ×3 (09:00→17:00)
[2016-03-28] MEDS: CALCITRIOL ORAL SOLUTION 1 MCG/ML GT SCH (09:00)
[2016-03-28] MEDS: GENTAMICIN 0.1% OINT 15 GM TUBE TP SCH ×4 (09:00→22:45)
[2016-03-28] MEDS: HYDROGEL DRESSING 90 GM TUBE TP SCH ×4 (09:00→22:45)
[2016-03-28] MEDS: HYDROCODONE/APAP 10/325MG 1 EA TABLET GT SCH (09:00)
[2016-03-28] MEDS: GABAPENTIN 300 MG CAPSULE GT SCH ×3 (09:00→17:00)
[2016-03-28] MEDS: ESCITALOPRAM OXALATE (10 MG) 10 MG TABLET GT SCH (09:00)
[2016-03-28] MEDS: POLYETHYLENE GLYCOL 3350 17 GM POWD.PACK GT SCH (09:00)
[2016-03-28] MEDS: CLOPIDOGREL BISULFATE 75 MG TABLET GT SCH (09:00)
[2016-03-28] MEDS: CRANBERRY FRUIT 400 MG GT SCH (09:00)
[2016-03-28] MEDS: FAMOTIDINE (20 MG) 20 MG TABLET GT SCH ×2 (09:00→21:34)
[2016-03-28] MEDS: BACLOFEN (10 MG) 10 MG TABLET GT SCH ×4 (09:00→21:34)
[2016-03-28] MEDS: HYDROGEN PEROXIDE 480 ML BOTTLE TP SCH ×2 (09:00→21:34)
[2016-03-28] MEDS: HYDROCODONE/APAP 10/325MG 1 EA TABLET GT PRN ×2 (16:14→22:15)
[2016-03-28 20:14] VITALS: BP 107/63
[2016-03-28] MEDS: ATORVASTATIN CALCIUM 20MG TABLET GT SCH (21:34)
[2016-03-29] MEDS: ACETAMINOPHEN 650 MG/20 ML UDC- FOR SA PATIENTS ONLY GT PRN (03:21)
[2016-03-29] MEDS: METHOCARBAMOL (750MG) 750 MG TABLET PO PRN (04:36)
[2016-03-29 07:45] VITALS: BP 120/69
[2016-03-29] MEDS: CRANBERRY FRUIT 400 MG GT SCH (09:19)
[2016-03-29] MEDS: BACLOFEN (10 MG) 10 MG TABLET GT SCH ×4 (09:19→20:49)
[2016-03-29] MEDS: CALCITRIOL ORAL SOLUTION 1 MCG/ML GT SCH (09:19)
[2016-03-29] MEDS: ACIDOPHILUS/BULGARICUS 1 EACH TAB.CHEW GT SCH ×3 (09:19→17:07)
[2016-03-29] MEDS: ESCITALOPRAM OXALATE (10 MG) 10 MG TABLET GT SCH (09:19)
[2016-03-29] MEDS: ENOXAPARIN SODIUM 40 MG/0.4 ML DISP.SYRIN SQ SCH (09:20)
[2016-03-29] MEDS: METOPROLOL TARTRATE 25 MG TABLET GT SCH ×2 (09:20→17:08)
[2016-03-29] MEDS: POLYETHYLENE GLYCOL 3350 17 GM POWD.PACK GT SCH (09:20)
[2016-03-29] MEDS: CALCIUM CARBONATE 500 MG TAB.CHEW GT SCH ×3 (09:20→17:08)
[2016-03-29] MEDS: CLOPIDOGREL BISULFATE 75 MG TABLET GT SCH (09:20)
[2016-03-29] MEDS: ASCORBIC ACID 500 MG TABLET GT SCH ×2 (09:20→17:08)
[2016-03-29] MEDS: FAMOTIDINE (20 MG) 20 MG TABLET GT SCH ×2 (09:20→20:49)
[2016-03-29] MEDS: MULTIVIT, IRON, MIN NO. 8, FA 1 TAB GT SCH (09:20)
[2016-03-29] MEDS: GABAPENTIN 300 MG CAPSULE GT SCH ×3 (09:20→17:07)
[2016-03-29] MEDS: PROSOURCE / PROSTAT (PYXIS) 30 ML UDC GT SCH (09:20)
[2016-03-29] MEDS: HYDROCODONE/APAP 10/325MG 1 EA TABLET GT SCH (10:20)
[2016-03-29] MEDS: MINERAL OIL/PETROL OINT 396 GM JAR TP SCH ×3 (11:00→17:08)
[2016-03-29] MEDS: HYDROGEL DRESSING 90 GM TUBE TP SCH ×4 (11:00→20:49)
[2016-03-29] MEDS: HYDROGEN PEROXIDE 480 ML BOTTLE TP SCH ×2 (11:00→20:49)
[2016-03-29] MEDS: GENTAMICIN 0.1% OINT 15 GM TUBE TP SCH ×4 (11:00→20:49)
[2016-03-29 19:48] VITALS: BP 101/62
[2016-03-29] MEDS: HYDROCODONE/APAP 10/325MG 1 EA TABLET GT PRN ×2 (21:00→23:31)
[2016-03-29] MEDS: ATORVASTATIN CALCIUM 20MG TABLET GT SCH (21:34)
[2016-03-30 07:47] VITALS: BP 109/71
[2016-03-30] MEDS: BACLOFEN (10 MG) 10 MG TABLET GT SCH ×4 (09:26→21:34)
[2016-03-30] MEDS: ACIDOPHILUS/BULGARICUS 1 EACH TAB.CHEW GT SCH ×3 (09:26→17:54)
[2016-03-30] MEDS: CRANBERRY FRUIT 400 MG GT SCH (09:26)
[2016-03-30] MEDS: ESCITALOPRAM OXALATE (10 MG) 10 MG TABLET GT SCH (09:26)
[2016-03-30] MEDS: CALCITRIOL ORAL SOLUTION 1 MCG/ML GT SCH (09:26)
[2016-03-30] MEDS: METOPROLOL TARTRATE 25 MG TABLET GT SCH ×2 (09:29→17:54)
[2016-03-30] MEDS: POLYETHYLENE GLYCOL 3350 17 GM POWD.PACK GT SCH (09:29)
[2016-03-30] MEDS: GABAPENTIN 300 MG CAPSULE GT SCH ×3 (09:30→17:54)
[2016-03-30] MEDS: PROSOURCE / PROSTAT (PYXIS) 30 ML UDC GT SCH (09:30)
[2016-03-30] MEDS: FAMOTIDINE (20 MG) 20 MG TABLET GT SCH ×2 (09:30→21:34)
[2016-03-30] MEDS: MULTIVIT, IRON, MIN NO. 8, FA 1 TAB GT SCH (09:30)
[2016-03-30] MEDS: CLOPIDOGREL BISULFATE 75 MG TABLET GT SCH (09:30)
[2016-03-30] MEDS: HYDROCODONE/APAP 10/325MG 1 EA TABLET GT SCH ×2 (09:30→10:30)
[2016-03-30] MEDS: ASCORBIC ACID 500 MG TABLET GT SCH ×2 (09:31→17:54)
[2016-03-30] MEDS: CALCIUM CARBONATE 500 MG TAB.CHEW GT SCH ×3 (09:31→17:54)
[2016-03-30] MEDS: MINERAL OIL/PETROL OINT 396 GM JAR TP SCH ×3 (09:32→17:54)
[2016-03-30] MEDS: ENOXAPARIN SODIUM 40 MG/0.4 ML DISP.SYRIN SQ SCH (09:32)
[2016-03-30] MEDS: GENTAMICIN 0.1% OINT 15 GM TUBE TP SCH ×4 (10:30→21:35)
[2016-03-30] MEDS: HYDROGEN PEROXIDE 480 ML BOTTLE TP SCH ×2 (10:30→21:35)
[2016-03-30] MEDS: HYDROGEL DRESSING 90 GM TUBE TP SCH ×4 (10:30→21:34)
[2016-03-30] MEDS: MAGNESIUM HYDROXIDE 30 ML UDC GT PRN (18:53)
[2016-03-30 19:51] VITALS: BP 127/81
[2016-03-30] MEDS: ATORVASTATIN CALCIUM 20MG TABLET GT SCH (21:35)
[2016-03-30] MEDS: HYDROCODONE/APAP 10/325MG 1 EA TABLET GT PRN (23:56)
[2016-03-31] MEDS: HYDROCODONE/APAP 10/325MG 1 EA TABLET GT PRN ×3 (07:01→23:31)
[2016-03-31 08:56] VITALS: BP 115/62
[2016-03-31] MEDS: ACIDOPHILUS/BULGARICUS 1 EACH TAB.CHEW GT SCH ×3 (09:40→17:18)
[2016-03-31] MEDS: ESCITALOPRAM OXALATE (10 MG) 10 MG TABLET GT SCH (09:40)
[2016-03-31] MEDS: CRANBERRY FRUIT 400 MG GT SCH (09:40)
[2016-03-31] MEDS: CALCITRIOL ORAL SOLUTION 1 MCG/ML GT SCH (09:40)
[2016-03-31] MEDS: BACLOFEN (10 MG) 10 MG TABLET GT SCH ×4 (09:40→21:47)
[2016-03-31] MEDS: MULTIVIT, IRON, MIN NO. 8, FA 1 TAB GT SCH (09:41)
[2016-03-31] MEDS: CALCIUM CARBONATE 500 MG TAB.CHEW GT SCH ×3 (09:41→17:19)
[2016-03-31] MEDS: FAMOTIDINE (20 MG) 20 MG TABLET GT SCH ×2 (09:41→21:47)
[2016-03-31] MEDS: POLYETHYLENE GLYCOL 3350 17 GM POWD.PACK GT SCH (09:41)
[2016-03-31] MEDS: ASCORBIC ACID 500 MG TABLET GT SCH ×2 (09:41→17:19)
[2016-03-31] MEDS: PROSOURCE / PROSTAT (PYXIS) 30 ML UDC GT SCH (09:41)
[2016-03-31] MEDS: MINERAL OIL/PETROL OINT 396 GM JAR TP SCH ×3 (09:41→17:19)
[2016-03-31] MEDS: ENOXAPARIN SODIUM 40 MG/0.4 ML DISP.SYRIN SQ SCH (09:41)
[2016-03-31] MEDS: GABAPENTIN 300 MG CAPSULE GT SCH ×3 (09:41→17:19)
[2016-03-31] MEDS: CLOPIDOGREL BISULFATE 75 MG TABLET GT SCH (09:41)
[2016-03-31] MEDS: METOPROLOL TARTRATE 25 MG TABLET GT SCH ×2 (09:41→17:00)
[2016-03-31] MEDS: HYDROCODONE/APAP 10/325MG 1 EA TABLET GT SCH (11:00)
[2016-03-31] MEDS: HYDROGEN PEROXIDE 480 ML BOTTLE TP SCH ×2 (12:00→23:30)
[2016-03-31] MEDS: HYDROGEL DRESSING 90 GM TUBE TP SCH ×4 (12:00→21:47)
[2016-03-31] MEDS: GENTAMICIN 0.1% OINT 15 GM TUBE TP SCH ×4 (12:00→23:30)
[2016-03-31 19:55] VITALS: BP 105/63
[2016-03-31] MEDS: ATORVASTATIN CALCIUM 20MG TABLET GT SCH (21:47)
[2016-04-01] MEDS: METHOCARBAMOL (750MG) 750 MG TABLET PO PRN (03:57)
[2016-04-01 07:47] VITALS: BP 115/69
[2016-04-01] MEDS: POLYETHYLENE GLYCOL 3350 17 GM POWD.PACK GT SCH (09:00)
[2016-04-01] MEDS: ENOXAPARIN SODIUM 40 MG/0.4 ML DISP.SYRIN SQ SCH (09:00)
[2016-04-01] MEDS: MINERAL OIL/PETROL OINT 396 GM JAR TP SCH ×3 (09:00→16:57)
[2016-04-01] MEDS: CRANBERRY FRUIT 400 MG GT SCH (09:00)
[2016-04-01] MEDS: CALCIUM CARBONATE 500 MG TAB.CHEW GT SCH ×3 (09:00→16:57)
[2016-04-01] MEDS: ASCORBIC ACID 500 MG TABLET GT SCH ×2 (09:00→16:57)
[2016-04-01] MEDS: CALCITRIOL ORAL SOLUTION 1 MCG/ML GT SCH (09:00)
[2016-04-01] MEDS: CLOPIDOGREL BISULFATE 75 MG TABLET GT SCH (09:00)
[2016-04-01] MEDS: METOPROLOL TARTRATE 25 MG TABLET GT SCH ×2 (09:00→16:57)
[2016-04-01] MEDS: ACIDOPHILUS/BULGARICUS 1 EACH TAB.CHEW GT SCH ×3 (09:00→16:57)
[2016-04-01] MEDS: GABAPENTIN 300 MG CAPSULE GT SCH ×3 (09:00→16:57)
[2016-04-01] MEDS: MULTIVIT, IRON, MIN NO. 8, FA 1 TAB GT SCH (09:00)
[2016-04-01] MEDS: BACLOFEN (10 MG) 10 MG TABLET GT SCH ×4 (09:00→21:00)
[2016-04-01] MEDS: PROSOURCE / PROSTAT (PYXIS) 30 ML UDC GT SCH (09:00)
[2016-04-01] MEDS: FAMOTIDINE (20 MG) 20 MG TABLET GT SCH ×2 (09:00→21:00)
[2016-04-01] MEDS: ESCITALOPRAM OXALATE (10 MG) 10 MG TABLET GT SCH (09:00)
[2016-04-01] MEDS: HYDROCODONE/APAP 10/325MG 1 EA TABLET GT PRN (10:04)
[2016-04-01] MEDS: HYDROCODONE/APAP 10/325MG 1 EA TABLET GT SCH ×2 (16:04→21:00)
[2016-04-01] MEDS: HYDROGEL DRESSING 90 GM TUBE TP SCH ×4 (17:10→21:00)
[2016-04-01] MEDS: GENTAMICIN 0.1% OINT 15 GM TUBE TP SCH ×4 (17:10→21:00)
[2016-04-01] MEDS: HYDROGEN PEROXIDE 480 ML BOTTLE TP SCH ×2 (17:10→21:00)
[2016-04-01 19:56] VITALS: BP 101/61
[2016-04-01] MEDS: ATORVASTATIN CALCIUM 20MG TABLET GT SCH (22:11)
[2016-04-02 07:43] VITALS: BP 126/63
[2016-04-02] MEDS: ESCITALOPRAM OXALATE (10 MG) 10 MG TABLET GT SCH (08:55)
[2016-04-02] MEDS: BACLOFEN (10 MG) 10 MG TABLET GT SCH ×4 (08:55→21:43)
[2016-04-02] MEDS: CALCITRIOL ORAL SOLUTION 1 MCG/ML GT SCH (08:55)
[2016-04-02] MEDS: CRANBERRY FRUIT 400 MG GT SCH (08:55)
[2016-04-02] MEDS: ACIDOPHILUS/BULGARICUS 1 EACH TAB.CHEW GT SCH ×3 (08:55→17:15)
[2016-04-02] MEDS: CLOPIDOGREL BISULFATE 75 MG TABLET GT SCH (08:57)
[2016-04-02] MEDS: POLYETHYLENE GLYCOL 3350 17 GM POWD.PACK GT SCH (08:57)
[2016-04-02] MEDS: FAMOTIDINE (20 MG) 20 MG TABLET GT SCH ×2 (08:57→21:43)
[2016-04-02] MEDS: MULTIVIT, IRON, MIN NO. 8, FA 1 TAB GT SCH (08:57)
[2016-04-02] MEDS: HYDROCODONE/APAP 10/325MG 1 EA TABLET GT SCH ×2 (08:57→21:57)
[2016-04-02] MEDS: CALCIUM CARBONATE 500 MG TAB.CHEW GT SCH ×3 (08:57→17:16)
[2016-04-02] MEDS: GABAPENTIN 300 MG CAPSULE GT SCH ×3 (08:57→17:16)
[2016-04-02] MEDS: METOPROLOL TARTRATE 25 MG TABLET GT SCH ×2 (08:57→17:16)
[2016-04-02] MEDS: PROSOURCE / PROSTAT (PYXIS) 30 ML UDC GT SCH (08:57)
[2016-04-02] MEDS: ASCORBIC ACID 500 MG TABLET GT SCH ×2 (08:58→17:16)
[2016-04-02] MEDS: ENOXAPARIN SODIUM 40 MG/0.4 ML DISP.SYRIN SQ SCH (08:58)
[2016-04-02] MEDS: MINERAL OIL/PETROL OINT 396 GM JAR TP SCH ×3 (08:58→17:16)
[2016-04-02] MEDS: HYDROGEL DRESSING 90 GM TUBE TP SCH ×4 (10:00→21:44)
[2016-04-02] MEDS: GENTAMICIN 0.1% OINT 15 GM TUBE TP SCH ×4 (10:00→21:44)
[2016-04-02] MEDS: HYDROGEN PEROXIDE 480 ML BOTTLE TP SCH ×2 (10:00→21:44)
--- NOTE | 2016-04-02 11:40 | NUR ---
Noted new open skin in patient's mid back measuring 1x 2.0, superficial. MD notified with new treatment for triple ATB and cover with dry dressing. All orders noted and carried out.
[2016-04-02] MEDS: MAGNESIUM HYDROXIDE 30 ML UDC GT PRN (18:56)
[2016-04-02 19:57] VITALS: BP 99/54
[2016-04-02] MEDS: NEOMY SULF/BACITRAC ZN/POLY 15 GM TUBE TP SCH (21:44)
[2016-04-02] MEDS: ATORVASTATIN CALCIUM 20MG TABLET GT SCH (21:44)
[2016-04-03 08:18] VITALS: BP 109/76
[2016-04-03] MEDS: METOPROLOL TARTRATE 25 MG TABLET GT SCH ×2 (09:00→16:25)
[2016-04-03] MEDS: BACLOFEN (10 MG) 10 MG TABLET GT SCH ×4 (09:00→21:03)
[2016-04-03] MEDS: CRANBERRY FRUIT 400 MG GT SCH (09:00)
[2016-04-03] MEDS: HYDROGEL DRESSING 90 GM TUBE TP SCH ×4 (09:00→21:08)
[2016-04-03] MEDS: CALCITRIOL ORAL SOLUTION 1 MCG/ML GT SCH (09:00)
[2016-04-03] MEDS: ACIDOPHILUS/BULGARICUS 1 EACH TAB.CHEW GT SCH ×3 (09:00→16:25)
[2016-04-03] MEDS: MINERAL OIL/PETROL OINT 396 GM JAR TP SCH ×3 (09:00→16:25)
[2016-04-03] MEDS: NEOMY SULF/BACITRAC ZN/POLY 15 GM TUBE TP SCH ×2 (09:00→21:09)
[2016-04-03] MEDS: GENTAMICIN 0.1% OINT 15 GM TUBE TP SCH ×4 (09:00→21:09)
[2016-04-03] MEDS: ESCITALOPRAM OXALATE (10 MG) 10 MG TABLET GT SCH (09:00)
[2016-04-03] MEDS: HYDROGEN PEROXIDE 480 ML BOTTLE TP SCH ×2 (09:00→21:09)
[2016-04-03] MEDS: ASCORBIC ACID 500 MG TABLET GT SCH ×2 (09:01→16:25)
[2016-04-03] MEDS: POLYETHYLENE GLYCOL 3350 17 GM POWD.PACK GT SCH (09:01)
[2016-04-03] MEDS: GABAPENTIN 300 MG CAPSULE GT SCH ×3 (09:01→16:25)
[2016-04-03] MEDS: PROSOURCE / PROSTAT (PYXIS) 30 ML UDC GT SCH (09:01)
[2016-04-03] MEDS: HYDROCODONE/APAP 10/325MG 1 EA TABLET GT SCH ×2 (09:01→21:08)
[2016-04-03] MEDS: CALCIUM CARBONATE 500 MG TAB.CHEW GT SCH ×3 (09:01→16:25)
[2016-04-03] MEDS: FAMOTIDINE (20 MG) 20 MG TABLET GT SCH ×2 (09:01→21:08)
[2016-04-03] MEDS: CLOPIDOGREL BISULFATE 75 MG TABLET GT SCH (09:01)
[2016-04-03] MEDS: MULTIVIT, IRON, MIN NO. 8, FA 1 TAB GT SCH (09:01)
[2016-04-03] MEDS: ENOXAPARIN SODIUM 40 MG/0.4 ML DISP.SYRIN SQ SCH (09:02)
[2016-04-03 19:59] VITALS: BP 124/78
[2016-04-03] MEDS: ATORVASTATIN CALCIUM 20MG TABLET GT SCH (21:38)
[2016-04-04 07:54] VITALS: BP 116/65
[2016-04-04] MEDS: ACIDOPHILUS/BULGARICUS 1 EACH TAB.CHEW GT SCH ×3 (09:49→17:58)
[2016-04-04] MEDS: CALCITRIOL ORAL SOLUTION 1 MCG/ML GT SCH (09:49)
[2016-04-04] MEDS: CRANBERRY FRUIT 400 MG GT SCH (09:49)
[2016-04-04] MEDS: CALCIUM CARBONATE 500 MG TAB.CHEW GT SCH ×3 (09:50→17:58)
[2016-04-04] MEDS: FAMOTIDINE (20 MG) 20 MG TABLET GT SCH ×2 (09:50→21:15)
[2016-04-04] MEDS: ESCITALOPRAM OXALATE (10 MG) 10 MG TABLET GT SCH (09:50)
[2016-04-04] MEDS: BACLOFEN (10 MG) 10 MG TABLET GT SCH ×4 (09:50→21:14)
[2016-04-04] MEDS: ASCORBIC ACID 500 MG TABLET GT SCH ×2 (09:50→17:58)
[2016-04-04] MEDS: GABAPENTIN 300 MG CAPSULE GT SCH ×3 (09:50→17:58)
[2016-04-04] MEDS: CLOPIDOGREL BISULFATE 75 MG TABLET GT SCH (09:50)
[2016-04-04] MEDS: MULTIVIT, IRON, MIN NO. 8, FA 1 TAB GT SCH (09:50)
[2016-04-04] MEDS: METOPROLOL TARTRATE 25 MG TABLET GT SCH ×2 (09:50→17:59)
[2016-04-04] MEDS: PROSOURCE / PROSTAT (PYXIS) 30 ML UDC GT SCH (09:50)
[2016-04-04] MEDS: POLYETHYLENE GLYCOL 3350 17 GM POWD.PACK GT SCH (09:50)
[2016-04-04] MEDS: ENOXAPARIN SODIUM 40 MG/0.4 ML DISP.SYRIN SQ SCH (09:51)
[2016-04-04] MEDS: HYDROCODONE/APAP 10/325MG 1 EA TABLET GT SCH ×2 (12:00→21:15)
[2016-04-04] MEDS: HYDROGEL DRESSING 90 GM TUBE TP SCH ×4 (13:50→21:15)
[2016-04-04] MEDS: NEOMY SULF/BACITRAC ZN/POLY 15 GM TUBE TP SCH ×2 (13:50→21:15)
[2016-04-04] MEDS: GENTAMICIN 0.1% OINT 15 GM TUBE TP SCH ×4 (13:50→21:15)
[2016-04-04] MEDS: HYDROGEN PEROXIDE 480 ML BOTTLE TP SCH ×2 (13:50→21:16)
[2016-04-04] MEDS: MINERAL OIL/PETROL OINT 396 GM JAR TP SCH ×3 (13:50→17:58)
--- NOTE | 2016-04-04 14:36 | NUR ---
exhaust worker called the office of Dr. Marianne TERRAZAS and spoke to Mysterallan in the front office. RAVI stated that resident is complaining that his tooth filling is jagged and is poking him. Mystery stated that the filling was meant to be temporary and that they had referred for patient to get the teeth extracted, as it was too decayed. RAVI informed them that she was not notified of this and Mystery stated that next time she will have them call RAVI directly. RAVI spoke to both resident and plftjn-uk-jpv Vilma about the situation. Resident stated that he does not want any more teeth to be extracted as he doesn't want any more teeth missing and it is not advised for resident to receive implants due to health risk. Wkuyqc-zw-yob stated that she wanted for resident to try eating on that side to see if the tooth needs to be extracted. She understood that the decay was severe and could affect other parts of his body but wants to see where the tooth is in relation to the other teeth that have been extracted. Resident told her that he will try eating on that side when he is fed later on today. exhaust worker stated that she will follow up with resident tomorrow and will keep bntqqx-wc-bbk posted. Addendum: 04/04/16 at 1443 by HECTOR RODRIGUES charge nurse notified.
--- NOTE | 2016-04-04 17:50 | NUR ---
Seen by Dr. Walker. Pt verbalized that sometimes he has muscle spasms. Pt on Robaxin PRN for muscle spasms and Gabapentin 300 mg GT TID for neuropathic pain. Dr. Walker ordered to increase Gabapentin to 600 mg GT TID. He discussed it with the pt. Addendum: 04/05/16 at 0951 by WINIFRED GARCÍA RN Pt also told Dr. Walker that he still has pressure wounds. Dr. Walker said to ask Dr. Floyd Torres or Dr. Rafiq Diaz to follow-up on the pt's wounds.
[2016-04-04 19:55] VITALS: BP 102/64
[2016-04-04] MEDS: ATORVASTATIN CALCIUM 20MG TABLET GT SCH (21:15)
[2016-04-05 08:08] VITALS: BP 105/54
[2016-04-05] MEDS: ACIDOPHILUS/BULGARICUS 1 EACH TAB.CHEW GT SCH ×3 (09:27→17:20)
[2016-04-05] MEDS: GABAPENTIN 300 MG CAPSULE GT SCH ×3 (09:27→17:21)
[2016-04-05] MEDS: BACLOFEN (10 MG) 10 MG TABLET GT SCH ×4 (09:27→20:42)
[2016-04-05] MEDS: CRANBERRY FRUIT 400 MG GT SCH (09:27)
[2016-04-05] MEDS: CALCITRIOL ORAL SOLUTION 1 MCG/ML GT SCH (09:27)
[2016-04-05] MEDS: METOPROLOL TARTRATE 25 MG TABLET GT SCH ×2 (09:27→17:21)
[2016-04-05] MEDS: ESCITALOPRAM OXALATE (10 MG) 10 MG TABLET GT SCH (09:27)
[2016-04-05] MEDS: POLYETHYLENE GLYCOL 3350 17 GM POWD.PACK GT SCH (09:27)
[2016-04-05] MEDS: MULTIVIT, IRON, MIN NO. 8, FA 1 TAB GT SCH (09:28)
[2016-04-05] MEDS: ASCORBIC ACID 500 MG TABLET GT SCH ×2 (09:28→17:21)
[2016-04-05] MEDS: CLOPIDOGREL BISULFATE 75 MG TABLET GT SCH (09:28)
[2016-04-05] MEDS: PROSOURCE / PROSTAT (PYXIS) 30 ML UDC GT SCH (09:28)
[2016-04-05] MEDS: FAMOTIDINE (20 MG) 20 MG TABLET GT SCH ×2 (09:28→20:43)
[2016-04-05] MEDS: CALCIUM CARBONATE 500 MG TAB.CHEW GT SCH ×3 (09:28→17:21)
[2016-04-05] MEDS: ENOXAPARIN SODIUM 40 MG/0.4 ML DISP.SYRIN SQ SCH (09:36)
--- NOTE | 2016-04-05 13:35 | NUR ---
Called Dr. Kyle Torres's office to ask him to follow-up on pt's decubitus wounds. Left message with Art.
[2016-04-05] MEDS: HYDROCODONE/APAP 10/325MG 1 EA TABLET GT SCH ×2 (13:46→20:43)
[2016-04-05] MEDS: MINERAL OIL/PETROL OINT 396 GM JAR TP SCH ×2 (14:08→17:21)
[2016-04-05] MEDS: HYDROGEN PEROXIDE 480 ML BOTTLE TP SCH ×2 (14:08→20:43)
[2016-04-05] MEDS: NEOMY SULF/BACITRAC ZN/POLY 15 GM TUBE TP SCH ×2 (14:08→20:43)
[2016-04-05] MEDS: HYDROGEL DRESSING 90 GM TUBE TP SCH ×4 (14:08→20:43)
[2016-04-05] MEDS: GENTAMICIN 0.1% OINT 15 GM TUBE TP SCH ×4 (14:08→20:43)
--- NOTE | 2016-04-05 16:41 | NUR ---
Dr. Kyle Torres came to see pt, but pt was sleeping. He said he will come back.
[2016-04-05 20:26] VITALS: BP 118/69
[2016-04-05] MEDS: ATORVASTATIN CALCIUM 20MG TABLET GT SCH (21:43)
[2016-04-06 08:16] VITALS: BP 120/67
[2016-04-06] MEDS: CALCITRIOL ORAL SOLUTION 1 MCG/ML GT SCH (08:49)
[2016-04-06] MEDS: BACLOFEN (10 MG) 10 MG TABLET GT SCH ×4 (08:49→21:16)
[2016-04-06] MEDS: ACIDOPHILUS/BULGARICUS 1 EACH TAB.CHEW GT SCH ×3 (08:49→17:55)
[2016-04-06] MEDS: CRANBERRY FRUIT 400 MG GT SCH (08:49)
[2016-04-06] MEDS: ESCITALOPRAM OXALATE (10 MG) 10 MG TABLET GT SCH (08:49)
[2016-04-06] MEDS: GABAPENTIN 300 MG CAPSULE GT SCH ×3 (08:50→17:55)
[2016-04-06] MEDS: POLYETHYLENE GLYCOL 3350 17 GM POWD.PACK GT SCH (08:50)
[2016-04-06] MEDS: CLOPIDOGREL BISULFATE 75 MG TABLET GT SCH (08:50)
[2016-04-06] MEDS: MULTIVIT, IRON, MIN NO. 8, FA 1 TAB GT SCH (08:50)
[2016-04-06] MEDS: METOPROLOL TARTRATE 25 MG TABLET GT SCH ×2 (08:50→17:55)
[2016-04-06] MEDS: CALCIUM CARBONATE 500 MG TAB.CHEW GT SCH ×3 (08:50→17:55)
[2016-04-06] MEDS: PROSOURCE / PROSTAT (PYXIS) 30 ML UDC GT SCH (08:50)
[2016-04-06] MEDS: ASCORBIC ACID 500 MG TABLET GT SCH ×2 (08:50→17:55)
[2016-04-06] MEDS: MINERAL OIL/PETROL OINT 396 GM JAR TP SCH ×3 (08:51→17:55)
[2016-04-06] MEDS: ENOXAPARIN SODIUM 40 MG/0.4 ML DISP.SYRIN SQ SCH (08:51)
[2016-04-06] MEDS: FAMOTIDINE (20 MG) 20 MG TABLET GT SCH ×2 (09:00→21:16)
[2016-04-06] MEDS: NEOMY SULF/BACITRAC ZN/POLY 15 GM TUBE TP SCH ×2 (09:00→21:17)
[2016-04-06] MEDS: HYDROCODONE/APAP 10/325MG 1 EA TABLET GT SCH ×2 (09:00→21:16)
[2016-04-06] MEDS: HYDROGEL DRESSING 90 GM TUBE TP SCH ×4 (09:00→21:16)
[2016-04-06] MEDS: HYDROGEN PEROXIDE 480 ML BOTTLE TP SCH ×2 (10:00→21:17)
[2016-04-06] MEDS: GENTAMICIN 0.1% OINT 15 GM TUBE TP SCH ×4 (10:00→21:16)
[2016-04-06] MEDS: METHOCARBAMOL (750MG) 750 MG TABLET PO PRN (11:51)
[2016-04-06 20:05] VITALS: BP 106/54
[2016-04-06] MEDS: ATORVASTATIN CALCIUM 20MG TABLET GT SCH (21:17)
[2016-04-07] MEDS: ESCITALOPRAM OXALATE (10 MG) 10 MG TABLET GT SCH (08:16)
[2016-04-07] MEDS: POLYETHYLENE GLYCOL 3350 17 GM POWD.PACK GT SCH (08:16)
[2016-04-07] MEDS: GABAPENTIN 300 MG CAPSULE GT SCH ×3 (08:16→16:48)
[2016-04-07] MEDS: CALCITRIOL ORAL SOLUTION 1 MCG/ML GT SCH (08:16)
[2016-04-07] MEDS: BACLOFEN (10 MG) 10 MG TABLET GT SCH ×4 (08:16→21:34)
[2016-04-07] MEDS: METOPROLOL TARTRATE 25 MG TABLET GT SCH ×2 (08:16→16:48)
[2016-04-07] MEDS: CRANBERRY FRUIT 400 MG GT SCH (08:16)
[2016-04-07] MEDS: ACIDOPHILUS/BULGARICUS 1 EACH TAB.CHEW GT SCH ×3 (08:16→16:48)
[2016-04-07] MEDS: CLOPIDOGREL BISULFATE 75 MG TABLET GT SCH (08:17)
[2016-04-07] MEDS: ASCORBIC ACID 500 MG TABLET GT SCH ×2 (08:17→16:48)
[2016-04-07] MEDS: FAMOTIDINE (20 MG) 20 MG TABLET GT SCH ×2 (08:17→21:34)
[2016-04-07] MEDS: PROSOURCE / PROSTAT (PYXIS) 30 ML UDC GT SCH (08:17)
[2016-04-07] MEDS: ENOXAPARIN SODIUM 40 MG/0.4 ML DISP.SYRIN SQ SCH (08:17)
[2016-04-07] MEDS: HYDROGEL DRESSING 90 GM TUBE TP SCH ×4 (08:17→21:35)
[2016-04-07] MEDS: MULTIVIT, IRON, MIN NO. 8, FA 1 TAB GT SCH (08:17)
[2016-04-07] MEDS: GENTAMICIN 0.1% OINT 15 GM TUBE TP SCH ×4 (08:17→21:35)
[2016-04-07] MEDS: CALCIUM CARBONATE 500 MG TAB.CHEW GT SCH ×3 (08:17→16:48)
[2016-04-07] MEDS: MINERAL OIL/PETROL OINT 396 GM JAR TP SCH ×3 (08:17→16:48)
[2016-04-07] MEDS: HYDROGEN PEROXIDE 480 ML BOTTLE TP SCH ×2 (08:18→21:35)
[2016-04-07] MEDS: NEOMY SULF/BACITRAC ZN/POLY 15 GM TUBE TP SCH ×2 (08:18→21:35)
[2016-04-07] MEDS: HYDROCODONE/APAP 10/325MG 1 EA TABLET GT SCH ×2 (09:00→21:34)
--- NOTE | 2016-04-07 09:39 | NUR ---
harm reduction worker spoke to ewjwvp-on-dus Vilma. RAVI stated that resident has been chewing on his tooth and he states that there is no pain. Vilma stated that she called the office of Dr. Marianne TERRAZAS and they stated that they were surprised that resident is not in pain as filling was meant to last for one week only. Vilma stated that she talked to them about the possibility of a root canal (which would cost around $3000.00). She stated that dentist's office stated that tooth needs to either be pulled or have a root canal done. Vilma reported that she will talk to his siblings to see if they want to pay for resident's root canal. Vilma asked SW not to tell resident until she discusses it with his siblings. Vilma also gave permission for RAVI to fill out resident's voting ballot with resident.
--- NOTE | 2016-04-07 16:06 | NUR ---
Spoke to sister in law Vilma regarding resident's tooth. He went to the dentist almost two weeks ago and got a temporary filling in one of his teeth. Resident does not want anymore teeth pulled out and this tooth cannot be left in as it is severely decayed and can get worse (including significant pain). Vilma stated that she called the dentist's office who stated that he can either get it pulled or have a root canal. Vilma told me that she spoke to Dr. Marianne TERRAZAS and he told her that he can see him for two visits (to work on it and put the crown in) but an second facing baster needs to do the other two visits. RAVI will check with Dr. Montiel the following day to see if he can do the two remaining visits and spoke to psychiatric nursing aide to see if procedure can be done. Procedure will take a total of 4 out of hospital visits. RAVI will follow up.
--- NOTE | 2016-04-07 16:07 | NUR ---
Seen and examined by Peggy Hoffman NP no new order given.
[2016-04-07] MEDS: ACETAMINOPHEN 650 MG/20 ML UDC- FOR SA PATIENTS ONLY GT PRN (16:45)
[2016-04-07] MEDS: HYDROCODONE/APAP 10/325MG 1 EA TABLET GT PRN (18:13)
[2016-04-07 19:42] VITALS: BP 131/61
[2016-04-07] MEDS: ATORVASTATIN CALCIUM 20MG TABLET GT SCH (21:35)
[2016-04-08] MEDS: CALCITRIOL ORAL SOLUTION 1 MCG/ML GT SCH (09:16)
[2016-04-08] MEDS: HYDROCODONE/APAP 10/325MG 1 EA TABLET GT SCH ×3 (09:16→21:00)
[2016-04-08] MEDS: BACLOFEN (10 MG) 10 MG TABLET GT SCH ×4 (09:17→21:00)
[2016-04-08] MEDS: ESCITALOPRAM OXALATE (10 MG) 10 MG TABLET GT SCH (09:17)
[2016-04-08] MEDS: CRANBERRY FRUIT 400 MG GT SCH (09:17)
[2016-04-08] MEDS: ACIDOPHILUS/BULGARICUS 1 EACH TAB.CHEW GT SCH ×3 (09:17→17:44)
[2016-04-08] MEDS: PROSOURCE / PROSTAT (PYXIS) 30 ML UDC GT SCH (09:18)
[2016-04-08] MEDS: CALCIUM CARBONATE 500 MG TAB.CHEW GT SCH ×3 (09:18→17:45)
[2016-04-08] MEDS: POLYETHYLENE GLYCOL 3350 17 GM POWD.PACK GT SCH (09:18)
[2016-04-08] MEDS: GABAPENTIN 300 MG CAPSULE GT SCH ×3 (09:18→17:45)
[2016-04-08] MEDS: MULTIVIT, IRON, MIN NO. 8, FA 1 TAB GT SCH (09:18)
[2016-04-08] MEDS: FAMOTIDINE (20 MG) 20 MG TABLET GT SCH ×2 (09:18→21:00)
[2016-04-08] MEDS: ASCORBIC ACID 500 MG TABLET GT SCH ×2 (09:18→17:45)
[2016-04-08] MEDS: CLOPIDOGREL BISULFATE 75 MG TABLET GT SCH (09:18)
[2016-04-08] MEDS: ENOXAPARIN SODIUM 40 MG/0.4 ML DISP.SYRIN SQ SCH (09:36)
[2016-04-08] MEDS: METOPROLOL TARTRATE 25 MG TABLET GT SCH ×2 (09:36→17:00)
[2016-04-08] MEDS: MINERAL OIL/PETROL OINT 396 GM JAR TP SCH ×3 (09:36→17:45)
--- NOTE | 2016-04-08 09:51 | NUR ---
RAVI called the office of Dr. Dinesh TERRAZAS and they stated that they cannot work on teeth for root canals. RAVI was provided referrals to endodontists Dr. Lara and Dr. Maher ([phone]). RAVI informed [id number]. RAVI sent email to licensed nursing assistant and subacute director to advise, as no additional dentists are contracted with hospital. RAVI will follow up.
[2016-04-08] MEDS: HYDROGEL DRESSING 90 GM TUBE TP SCH ×4 (10:40→21:00)
[2016-04-08] MEDS: GENTAMICIN 0.1% OINT 15 GM TUBE TP SCH ×4 (10:40→21:00)
[2016-04-08] MEDS: NEOMY SULF/BACITRAC ZN/POLY 15 GM TUBE TP SCH ×2 (10:40→21:00)
[2016-04-08] MEDS: HYDROGEN PEROXIDE 480 ML BOTTLE TP SCH ×2 (10:40→21:00)
[2016-04-08] MEDS: HYDROCODONE/APAP 10/325MG 1 EA TABLET GT PRN (12:50)
[2016-04-08 20:06] VITALS: BP 102/68
[2016-04-08] MEDS: ATORVASTATIN CALCIUM 20MG TABLET GT SCH (22:13)
[2016-04-09] MEDS: HYDROCODONE/APAP 10/325MG 1 EA TABLET GT SCH ×2 (08:06→21:36)
[2016-04-09] MEDS: CRANBERRY FRUIT 400 MG GT SCH (08:13)
[2016-04-09] MEDS: ACIDOPHILUS/BULGARICUS 1 EACH TAB.CHEW GT SCH ×3 (08:13→17:44)
[2016-04-09] MEDS: CALCITRIOL ORAL SOLUTION 1 MCG/ML GT SCH (08:13)
[2016-04-09] MEDS: METOPROLOL TARTRATE 25 MG TABLET GT SCH ×2 (08:14→17:00)
[2016-04-09] MEDS: POLYETHYLENE GLYCOL 3350 17 GM POWD.PACK GT SCH (08:14)
[2016-04-09] MEDS: FAMOTIDINE (20 MG) 20 MG TABLET GT SCH ×2 (08:14→20:20)
[2016-04-09] MEDS: ASCORBIC ACID 500 MG TABLET GT SCH ×2 (08:14→17:45)
[2016-04-09] MEDS: PROSOURCE / PROSTAT (PYXIS) 30 ML UDC GT SCH (08:14)
[2016-04-09] MEDS: MULTIVIT, IRON, MIN NO. 8, FA 1 TAB GT SCH (08:14)
[2016-04-09] MEDS: CLOPIDOGREL BISULFATE 75 MG TABLET GT SCH (08:14)
[2016-04-09] MEDS: BACLOFEN (10 MG) 10 MG TABLET GT SCH ×4 (08:14→20:20)
[2016-04-09] MEDS: GABAPENTIN 300 MG CAPSULE GT SCH ×3 (08:14→17:45)
[2016-04-09] MEDS: CALCIUM CARBONATE 500 MG TAB.CHEW GT SCH ×3 (08:14→17:45)
[2016-04-09] MEDS: ESCITALOPRAM OXALATE (10 MG) 10 MG TABLET GT SCH (08:14)
[2016-04-09] MEDS: MINERAL OIL/PETROL OINT 396 GM JAR TP SCH ×3 (08:15→17:45)
[2016-04-09] MEDS: ENOXAPARIN SODIUM 40 MG/0.4 ML DISP.SYRIN SQ SCH (08:15)
[2016-04-09 08:31] VITALS: BP 106/65
[2016-04-09] MEDS: GENTAMICIN 0.1% OINT 15 GM TUBE TP SCH ×4 (09:06→20:20)
[2016-04-09] MEDS: HYDROGEN PEROXIDE 480 ML BOTTLE TP SCH ×2 (09:06→20:20)
[2016-04-09] MEDS: NEOMY SULF/BACITRAC ZN/POLY 15 GM TUBE TP SCH ×2 (09:06→20:20)
[2016-04-09] MEDS: HYDROGEL DRESSING 90 GM TUBE TP SCH ×4 (09:06→20:20)
[2016-04-09] MEDS: HYDROCODONE/APAP 10/325MG 1 EA TABLET GT PRN (12:13)
[2016-04-09 20:53] VITALS: BP 100/58
[2016-04-09] MEDS: ATORVASTATIN CALCIUM 20MG TABLET GT SCH (21:36)
[2016-04-10 07:53] VITALS: BP 102/63
[2016-04-10] MEDS: GABAPENTIN 300 MG CAPSULE GT SCH ×3 (08:00→17:05)
[2016-04-10] MEDS: ACIDOPHILUS/BULGARICUS 1 EACH TAB.CHEW GT SCH ×3 (08:00→17:05)
[2016-04-10] MEDS: CRANBERRY FRUIT 400 MG GT SCH (08:00)
[2016-04-10] MEDS: CALCITRIOL ORAL SOLUTION 1 MCG/ML GT SCH (08:00)
[2016-04-10] MEDS: METOPROLOL TARTRATE 25 MG TABLET GT SCH ×2 (08:00→17:05)
[2016-04-10] MEDS: ESCITALOPRAM OXALATE (10 MG) 10 MG TABLET GT SCH (08:00)
[2016-04-10] MEDS: BACLOFEN (10 MG) 10 MG TABLET GT SCH ×4 (08:00→21:30)
[2016-04-10] MEDS: POLYETHYLENE GLYCOL 3350 17 GM POWD.PACK GT SCH (08:00)
[2016-04-10] MEDS: CLOPIDOGREL BISULFATE 75 MG TABLET GT SCH (08:01)
[2016-04-10] MEDS: MULTIVIT, IRON, MIN NO. 8, FA 1 TAB GT SCH (08:01)
[2016-04-10] MEDS: CALCIUM CARBONATE 500 MG TAB.CHEW GT SCH ×3 (08:01→17:05)
[2016-04-10] MEDS: ASCORBIC ACID 500 MG TABLET GT SCH ×2 (08:01→17:05)
[2016-04-10] MEDS: FAMOTIDINE (20 MG) 20 MG TABLET GT SCH ×2 (08:01→21:31)
[2016-04-10] MEDS: ENOXAPARIN SODIUM 40 MG/0.4 ML DISP.SYRIN SQ SCH (08:01)
[2016-04-10] MEDS: PROSOURCE / PROSTAT (PYXIS) 30 ML UDC GT SCH (08:01)
[2016-04-10] MEDS: HYDROCODONE/APAP 10/325MG 1 EA TABLET GT SCH ×2 (08:01→21:31)
[2016-04-10] MEDS: MINERAL OIL/PETROL OINT 396 GM JAR TP SCH ×3 (09:05→17:05)
[2016-04-10] MEDS: HYDROGEL DRESSING 90 GM TUBE TP SCH ×4 (09:06→21:31)
[2016-04-10] MEDS: GENTAMICIN 0.1% OINT 15 GM TUBE TP SCH ×4 (09:07→21:31)
[2016-04-10] MEDS: HYDROGEN PEROXIDE 480 ML BOTTLE TP SCH ×2 (09:07→21:31)
[2016-04-10] MEDS: NEOMY SULF/BACITRAC ZN/POLY 15 GM TUBE TP SCH ×2 (09:08→21:31)
[2016-04-10 19:32] VITALS: BP 109/68
[2016-04-10] MEDS: ATORVASTATIN CALCIUM 20MG TABLET GT SCH (21:31)
[2016-04-11] MEDS: CALCITRIOL ORAL SOLUTION 1 MCG/ML GT SCH (09:50)
[2016-04-11] MEDS: CRANBERRY FRUIT 400 MG GT SCH (09:50)
[2016-04-11] MEDS: BACLOFEN (10 MG) 10 MG TABLET GT SCH ×4 (09:50→20:57)
[2016-04-11] MEDS: ESCITALOPRAM OXALATE (10 MG) 10 MG TABLET GT SCH (09:50)
[2016-04-11] MEDS: ACIDOPHILUS/BULGARICUS 1 EACH TAB.CHEW GT SCH ×3 (09:50→17:32)
[2016-04-11] MEDS: FAMOTIDINE (20 MG) 20 MG TABLET GT SCH ×2 (09:51→20:57)
[2016-04-11] MEDS: GABAPENTIN 300 MG CAPSULE GT SCH ×3 (09:51→17:33)
[2016-04-11] MEDS: ASCORBIC ACID 500 MG TABLET GT SCH ×2 (09:51→17:33)
[2016-04-11] MEDS: POLYETHYLENE GLYCOL 3350 17 GM POWD.PACK GT SCH (09:51)
[2016-04-11] MEDS: HYDROCODONE/APAP 10/325MG 1 EA TABLET GT SCH ×2 (09:51→20:58)
[2016-04-11] MEDS: PROSOURCE / PROSTAT (PYXIS) 30 ML UDC GT SCH (09:51)
[2016-04-11] MEDS: METOPROLOL TARTRATE 25 MG TABLET GT SCH ×2 (09:51→17:33)
[2016-04-11] MEDS: CLOPIDOGREL BISULFATE 75 MG TABLET GT SCH (09:51)
[2016-04-11] MEDS: CALCIUM CARBONATE 500 MG TAB.CHEW GT SCH ×3 (09:51→17:33)
[2016-04-11] MEDS: MULTIVIT, IRON, MIN NO. 8, FA 1 TAB GT SCH (09:51)
[2016-04-11] MEDS: ENOXAPARIN SODIUM 40 MG/0.4 ML DISP.SYRIN SQ SCH (09:52)
[2016-04-11] MEDS: MINERAL OIL/PETROL OINT 396 GM JAR TP SCH ×3 (10:20→17:33)
[2016-04-11] MEDS: HYDROGEL DRESSING 90 GM TUBE TP SCH ×4 (10:20→21:39)
[2016-04-11] MEDS: NEOMY SULF/BACITRAC ZN/POLY 15 GM TUBE TP SCH ×2 (10:20→21:39)
[2016-04-11] MEDS: GENTAMICIN 0.1% OINT 15 GM TUBE TP SCH ×4 (10:20→21:39)
[2016-04-11] MEDS: HYDROGEN PEROXIDE 480 ML BOTTLE TP SCH ×2 (10:20→21:39)
--- NOTE | 2016-04-11 18:28 | NUR ---
Seen by SCREW MACHINE OPERATOR Peggy Hoffman. Notified her that pt has some tissue growth on the nose. Received order to have Dr. Rafiq Diaz see the pt. Notified Dr. Conroy.
--- NOTE | 2016-04-11 18:44 | NUR ---
Dr. Rafiq Diaz said he will see pt tomorrow.
--- NOTE | 2016-04-11 18:45 | NUR ---
Notified Vilma Marley that pt has a growth on his nose and Dr. Conroy will see pt tomorrow. Vilma appreciated call.
[2016-04-11 20:06] VITALS: BP 101/61
[2016-04-11] MEDS: ATORVASTATIN CALCIUM 20MG TABLET GT SCH (21:39)
[2016-04-12 07:42] VITALS: BP 123/67
[2016-04-12] MEDS: CALCIUM CARBONATE 500 MG TAB.CHEW GT SCH ×3 (09:00→17:00)
[2016-04-12] MEDS: METOPROLOL TARTRATE 25 MG TABLET GT SCH ×2 (09:00→17:00)
[2016-04-12] MEDS: CALCITRIOL ORAL SOLUTION 1 MCG/ML GT SCH (09:00)
[2016-04-12] MEDS: GABAPENTIN 300 MG CAPSULE GT SCH ×3 (09:00→17:00)
[2016-04-12] MEDS: BACLOFEN (10 MG) 10 MG TABLET GT SCH ×4 (09:00→20:49)
[2016-04-12] MEDS: ACIDOPHILUS/BULGARICUS 1 EACH TAB.CHEW GT SCH ×3 (09:00→17:00)
[2016-04-12] MEDS: ENOXAPARIN SODIUM 40 MG/0.4 ML DISP.SYRIN SQ SCH (09:00)
[2016-04-12] MEDS: CLOPIDOGREL BISULFATE 75 MG TABLET GT SCH (09:00)
[2016-04-12] MEDS: FAMOTIDINE (20 MG) 20 MG TABLET GT SCH ×2 (09:00→20:49)
[2016-04-12] MEDS: CRANBERRY FRUIT 400 MG GT SCH (09:00)
[2016-04-12] MEDS: MULTIVIT, IRON, MIN NO. 8, FA 1 TAB GT SCH (09:00)
[2016-04-12] MEDS: ASCORBIC ACID 500 MG TABLET GT SCH ×2 (09:00→17:00)
[2016-04-12] MEDS: POLYETHYLENE GLYCOL 3350 17 GM POWD.PACK GT SCH (09:00)
[2016-04-12] MEDS: ESCITALOPRAM OXALATE (10 MG) 10 MG TABLET GT SCH (09:00)
[2016-04-12] MEDS: PROSOURCE / PROSTAT (PYXIS) 30 ML UDC GT SCH (09:00)
--- NOTE | 2016-04-12 10:06 | NUR ---
Seen by Dr Ugarte with no new order.
[2016-04-12] MEDS: HYDROCODONE/APAP 10/325MG 1 EA TABLET GT SCH ×2 (10:30→20:49)
--- NOTE | 2016-04-12 12:00 | NUR ---
Seen by Dr Rafiq Diaz with order for biopsy of nose lesion order noted and carried out.Resident and sister Vilma made aware.
[2016-04-12] MEDS: NEOMY SULF/BACITRAC ZN/POLY 15 GM TUBE TP SCH ×2 (15:00→21:27)
[2016-04-12] MEDS: MINERAL OIL/PETROL OINT 396 GM JAR TP SCH ×2 (15:00→17:00)
[2016-04-12] MEDS: GENTAMICIN 0.1% OINT 15 GM TUBE TP SCH ×4 (15:00→21:27)
[2016-04-12] MEDS: HYDROGEN PEROXIDE 480 ML BOTTLE TP SCH ×2 (15:00→21:27)
[2016-04-12] MEDS: HYDROGEL DRESSING 90 GM TUBE TP SCH ×4 (15:00→21:27)
[2016-04-12] MEDS: Z GUARD REMEDY 4 OZ OINT TP SCH ×3 (15:00→21:28)
[2016-04-12 20:51] VITALS: BP 112/61
[2016-04-12] MEDS: ATORVASTATIN CALCIUM 20MG TABLET GT SCH (21:28)
[2016-04-13 07:50] VITALS: BP 105/66
[2016-04-13] MEDS: BACLOFEN (10 MG) 10 MG TABLET GT SCH ×4 (08:11→21:03)
[2016-04-13] MEDS: ESCITALOPRAM OXALATE (10 MG) 10 MG TABLET GT SCH (08:11)
[2016-04-13] MEDS: METOPROLOL TARTRATE 25 MG TABLET GT SCH ×2 (08:11→17:00)
[2016-04-13] MEDS: POLYETHYLENE GLYCOL 3350 17 GM POWD.PACK GT SCH (08:11)
[2016-04-13] MEDS: GABAPENTIN 300 MG CAPSULE GT SCH ×3 (08:11→17:59)
[2016-04-13] MEDS: CALCITRIOL ORAL SOLUTION 1 MCG/ML GT SCH (08:11)
[2016-04-13] MEDS: CRANBERRY FRUIT 400 MG GT SCH (08:11)
[2016-04-13] MEDS: ACIDOPHILUS/BULGARICUS 1 EACH TAB.CHEW GT SCH ×3 (08:11→17:59)
[2016-04-13] MEDS: ASCORBIC ACID 500 MG TABLET GT SCH ×2 (08:12→17:59)
[2016-04-13] MEDS: FAMOTIDINE (20 MG) 20 MG TABLET GT SCH ×2 (08:12→21:06)
[2016-04-13] MEDS: CLOPIDOGREL BISULFATE 75 MG TABLET GT SCH (08:12)
[2016-04-13] MEDS: CALCIUM CARBONATE 500 MG TAB.CHEW GT SCH ×3 (08:12→17:59)
[2016-04-13] MEDS: PROSOURCE / PROSTAT (PYXIS) 30 ML UDC GT SCH (08:12)
[2016-04-13] MEDS: HYDROCODONE/APAP 10/325MG 1 EA TABLET GT SCH ×2 (08:12→21:06)
[2016-04-13] MEDS: MULTIVIT, IRON, MIN NO. 8, FA 1 TAB GT SCH (08:12)
[2016-04-13] MEDS: ENOXAPARIN SODIUM 40 MG/0.4 ML DISP.SYRIN SQ SCH (08:13)
[2016-04-13] MEDS: MINERAL OIL/PETROL OINT 396 GM JAR TP SCH ×3 (08:13→17:59)
[2016-04-13] MEDS: HYDROGEL DRESSING 90 GM TUBE TP SCH ×4 (09:39→21:31)
[2016-04-13] MEDS: HYDROGEN PEROXIDE 480 ML BOTTLE TP SCH ×2 (09:40→21:32)
[2016-04-13] MEDS: NEOMY SULF/BACITRAC ZN/POLY 15 GM TUBE TP SCH ×2 (09:40→21:32)
[2016-04-13] MEDS: GENTAMICIN 0.1% OINT 15 GM TUBE TP SCH ×4 (09:40→21:32)
[2016-04-13] MEDS: Z GUARD REMEDY 4 OZ OINT TP SCH ×4 (09:40→21:32)
[2016-04-13] MEDS: HYDROCODONE/APAP 10/325MG 1 EA TABLET GT PRN (15:00)
[2016-04-13 20:20] VITALS: BP 100/61
[2016-04-13] MEDS: ATORVASTATIN CALCIUM 20MG TABLET GT SCH (21:06)
[2016-04-14 06:31] VITALS: BP 100/61
[2016-04-14] MEDS: NEOMY SULF/BACITRAC ZN/POLY 15 GM TUBE TP SCH ×2 (09:00→20:19)
[2016-04-14] MEDS: Z GUARD REMEDY 4 OZ OINT TP SCH ×4 (09:00→20:19)
[2016-04-14] MEDS: HYDROGEL DRESSING 90 GM TUBE TP SCH ×4 (09:00→20:19)
[2016-04-14] MEDS: HYDROGEN PEROXIDE 480 ML BOTTLE TP SCH ×2 (09:00→20:19)
[2016-04-14] MEDS ORDERED: LIDOCAINE 1%-EPI 1:100,000 20 ML VIAL TP ONE (09:00)
[2016-04-14] MEDS: GENTAMICIN 0.1% OINT 15 GM TUBE TP SCH ×4 (09:00→20:19)
[2016-04-14] MEDS: ACIDOPHILUS/BULGARICUS 1 EACH TAB.CHEW GT SCH ×3 (09:48→16:39)
[2016-04-14] MEDS: CALCITRIOL ORAL SOLUTION 1 MCG/ML GT SCH (09:48)
[2016-04-14] MEDS: CRANBERRY FRUIT 400 MG GT SCH (09:48)
[2016-04-14] MEDS: METOPROLOL TARTRATE 25 MG TABLET GT SCH ×2 (09:49→16:40)
[2016-04-14] MEDS: BACLOFEN (10 MG) 10 MG TABLET GT SCH ×4 (09:49→20:18)
[2016-04-14] MEDS: GABAPENTIN 300 MG CAPSULE GT SCH ×3 (09:49→16:40)
[2016-04-14] MEDS: ENOXAPARIN SODIUM 40 MG/0.4 ML DISP.SYRIN SQ SCH (09:49)
[2016-04-14] MEDS: MULTIVIT, IRON, MIN NO. 8, FA 1 TAB GT SCH (09:49)
[2016-04-14] MEDS: CALCIUM CARBONATE 500 MG TAB.CHEW GT SCH ×3 (09:49→16:40)
[2016-04-14] MEDS: ESCITALOPRAM OXALATE (10 MG) 10 MG TABLET GT SCH (09:49)
[2016-04-14] MEDS: CLOPIDOGREL BISULFATE 75 MG TABLET GT SCH (09:49)
[2016-04-14] MEDS: ASCORBIC ACID 500 MG TABLET GT SCH ×2 (09:49→16:40)
[2016-04-14] MEDS: FAMOTIDINE (20 MG) 20 MG TABLET GT SCH ×2 (09:49→20:18)
[2016-04-14] MEDS: PROSOURCE / PROSTAT (PYXIS) 30 ML UDC GT SCH (09:49)
[2016-04-14] MEDS: POLYETHYLENE GLYCOL 3350 17 GM POWD.PACK GT SCH (09:49)
[2016-04-14] MEDS: MINERAL OIL/PETROL OINT 396 GM JAR TP SCH ×3 (09:49→16:40)
[2016-04-14] MEDS: HYDROCODONE/APAP 10/325MG 1 EA TABLET GT SCH ×2 (11:46→21:17)
--- NOTE | 2016-04-14 13:30 | NUR ---
Seen by Peggy Hoffman NP with no new order.
[2016-04-14] MEDS: HYDROCODONE/APAP 10/325MG 1 EA TABLET GT PRN (16:40)
[2016-04-14 20:10] VITALS: BP 105/61
[2016-04-14] MEDS: ATORVASTATIN CALCIUM 20MG TABLET GT SCH (21:17)
[2016-04-15 07:42] VITALS: BP 114/74
[2016-04-15] MEDS: HYDROCODONE/APAP 10/325MG 1 EA TABLET GT SCH ×2 (08:47→21:23)
[2016-04-15] MEDS: ESCITALOPRAM OXALATE (10 MG) 10 MG TABLET GT SCH (08:54)
[2016-04-15] MEDS: CRANBERRY FRUIT 400 MG GT SCH (08:54)
[2016-04-15] MEDS: ACIDOPHILUS/BULGARICUS 1 EACH TAB.CHEW GT SCH ×3 (08:54→17:11)
[2016-04-15] MEDS: PROSOURCE / PROSTAT (PYXIS) 30 ML UDC GT SCH (08:55)
[2016-04-15] MEDS: FAMOTIDINE (20 MG) 20 MG TABLET GT SCH ×2 (08:55→20:22)
[2016-04-15] MEDS: CLOPIDOGREL BISULFATE 75 MG TABLET GT SCH (08:55)
[2016-04-15] MEDS: POLYETHYLENE GLYCOL 3350 17 GM POWD.PACK GT SCH (08:55)
[2016-04-15] MEDS: GABAPENTIN 300 MG CAPSULE GT SCH ×3 (08:55→17:11)
[2016-04-15] MEDS: METOPROLOL TARTRATE 25 MG TABLET GT SCH ×2 (08:55→17:11)
[2016-04-15] MEDS: MULTIVIT, IRON, MIN NO. 8, FA 1 TAB GT SCH (08:55)
[2016-04-15] MEDS: BACLOFEN (10 MG) 10 MG TABLET GT SCH ×4 (08:55→20:22)
[2016-04-15] MEDS: ASCORBIC ACID 500 MG TABLET GT SCH ×2 (08:55→17:11)
[2016-04-15] MEDS: CALCIUM CARBONATE 500 MG TAB.CHEW GT SCH ×3 (08:55→17:11)
[2016-04-15] MEDS ORDERED: TUBERCULIN,PURIF.PROT.DERIV. 5 TU/0.1 ML VIAL ID SCH (09:00)
[2016-04-15] MEDS: MINERAL OIL/PETROL OINT 396 GM JAR TP SCH ×3 (09:00→17:12)
[2016-04-15] MEDS: CALCITRIOL ORAL SOLUTION 1 MCG/ML GT SCH (09:00)
[2016-04-15] MEDS: ENOXAPARIN SODIUM 40 MG/0.4 ML DISP.SYRIN SQ SCH (09:04)
[2016-04-15] MEDS: HYDROGEN PEROXIDE 480 ML BOTTLE TP SCH ×2 (10:00→20:22)
[2016-04-15] MEDS: HYDROGEL DRESSING 90 GM TUBE TP SCH ×4 (10:00→20:22)
[2016-04-15] MEDS: NEOMY SULF/BACITRAC ZN/POLY 15 GM TUBE TP SCH ×2 (10:00→20:22)
[2016-04-15] MEDS: Z GUARD REMEDY 4 OZ OINT TP SCH ×4 (10:00→20:22)
[2016-04-15] MEDS: GENTAMICIN 0.1% OINT 15 GM TUBE TP SCH ×4 (10:00→20:22)
--- NOTE | 2016-04-15 10:37 | NUR ---
Seen and examined by Dr. Denise GASPAR given.
--- NOTE | 2016-04-15 14:10 | NUR ---
INTERDISCIPLINARY PLAN OF CARE CONFERENCE was held today. Patient's enmmbi-pc-jus Vilma attended via phone. New orders were reviewed. Dr. Ugarte will talk to resident about getting his tooth extracted, as it is the only option. Vilma is in agreement and knows that the root canal is out of the question. Resident has a weight gain of 2.8lbs. No other changes were noted.
[2016-04-15] MEDS: HYDROCODONE/APAP 10/325MG 1 EA TABLET GT PRN (15:37)
[2016-04-15 19:43] VITALS: BP 112/62
[2016-04-15] MEDS: ATORVASTATIN CALCIUM 20MG TABLET GT SCH (21:23)
[2016-04-15] MEDS: METHOCARBAMOL (750MG) 750 MG TABLET GT PRN (23:21)
[2016-04-16] MEDS: ACIDOPHILUS/BULGARICUS 1 EACH TAB.CHEW GT SCH ×3 (08:29→17:33)
[2016-04-16] MEDS: BACLOFEN (10 MG) 10 MG TABLET GT SCH ×4 (08:29→20:16)
[2016-04-16] MEDS: CRANBERRY FRUIT 400 MG GT SCH (08:29)
[2016-04-16] MEDS: METOPROLOL TARTRATE 25 MG TABLET GT SCH ×2 (08:29→17:00)
[2016-04-16] MEDS: ESCITALOPRAM OXALATE (10 MG) 10 MG TABLET GT SCH (08:29)
[2016-04-16] MEDS: CALCIUM CARBONATE 500 MG TAB.CHEW GT SCH ×3 (08:30→17:34)
[2016-04-16] MEDS: POLYETHYLENE GLYCOL 3350 17 GM POWD.PACK GT SCH (08:30)
[2016-04-16] MEDS: PROSOURCE / PROSTAT (PYXIS) 30 ML UDC GT SCH (08:30)
[2016-04-16] MEDS: GABAPENTIN 300 MG CAPSULE GT SCH ×3 (08:30→17:34)
[2016-04-16] MEDS: FAMOTIDINE (20 MG) 20 MG TABLET GT SCH ×2 (08:30→20:17)
[2016-04-16] MEDS: MULTIVIT, IRON, MIN NO. 8, FA 1 TAB GT SCH (08:30)
[2016-04-16] MEDS: MINERAL OIL/PETROL OINT 396 GM JAR TP SCH ×3 (08:30→17:34)
[2016-04-16] MEDS: ASCORBIC ACID 500 MG TABLET GT SCH ×2 (08:30→17:34)
[2016-04-16] MEDS: CALCITRIOL 0.25 MCG CAPSULE PO SCH (08:30)
[2016-04-16] MEDS: CLOPIDOGREL BISULFATE 75 MG TABLET GT SCH (08:30)
[2016-04-16] MEDS: HYDROCODONE/APAP 10/325MG 1 EA TABLET GT SCH ×2 (08:30→21:33)
[2016-04-16] MEDS: ENOXAPARIN SODIUM 40 MG/0.4 ML DISP.SYRIN SQ SCH (08:30)
[2016-04-16] MEDS: HYDROGEN PEROXIDE 480 ML BOTTLE TP SCH ×2 (09:30→20:17)
[2016-04-16] MEDS: NEOMY SULF/BACITRAC ZN/POLY 15 GM TUBE TP SCH ×2 (09:30→20:17)
[2016-04-16] MEDS: Z GUARD REMEDY 4 OZ OINT TP SCH ×4 (09:30→20:17)
[2016-04-16] MEDS: HYDROGEL DRESSING 90 GM TUBE TP SCH ×4 (09:30→20:17)
[2016-04-16] MEDS: GENTAMICIN 0.1% OINT 15 GM TUBE TP SCH ×4 (09:30→20:17)
[2016-04-16 09:48] VITALS: BP 127/78
[2016-04-16] MEDS: HYDROCODONE/APAP 10/325MG 1 EA TABLET GT PRN (14:07)
[2016-04-16] MEDS: METHOCARBAMOL (750MG) 750 MG TABLET GT PRN (15:25)
[2016-04-16] MEDS: ACETAMINOPHEN 650 MG/20 ML UDC- FOR SA PATIENTS ONLY GT PRN (15:47)
[2016-04-16] MEDS: MAGNESIUM HYDROXIDE 30 ML UDC GT PRN (17:36)
[2016-04-16 20:07] VITALS: BP 93/55
[2016-04-16] MEDS: ATORVASTATIN CALCIUM 20MG TABLET GT SCH (21:33)
[2016-04-17 08:02] VITALS: BP 109/78
[2016-04-17] MEDS: HYDROGEN PEROXIDE 480 ML BOTTLE TP SCH ×2 (09:00→21:06)
[2016-04-17] MEDS: Z GUARD REMEDY 4 OZ OINT TP SCH ×4 (09:00→21:14)
[2016-04-17] MEDS: GENTAMICIN 0.1% OINT 15 GM TUBE TP SCH ×4 (09:00→21:14)
[2016-04-17] MEDS: MINERAL OIL/PETROL OINT 396 GM JAR TP SCH ×3 (09:00→17:12)
[2016-04-17] MEDS: HYDROGEL DRESSING 90 GM TUBE TP SCH ×4 (09:00→21:14)
[2016-04-17] MEDS: ACIDOPHILUS/BULGARICUS 1 EACH TAB.CHEW GT SCH ×3 (09:06→17:12)
[2016-04-17] MEDS: CRANBERRY FRUIT 400 MG GT SCH (09:06)
[2016-04-17] MEDS: ESCITALOPRAM OXALATE (10 MG) 10 MG TABLET GT SCH (09:06)
[2016-04-17] MEDS: CALCITRIOL 0.25 MCG CAPSULE PO SCH (09:07)
[2016-04-17] MEDS: METOPROLOL TARTRATE 25 MG TABLET GT SCH ×2 (09:07→17:12)
[2016-04-17] MEDS: GABAPENTIN 300 MG CAPSULE GT SCH ×3 (09:07→17:12)
[2016-04-17] MEDS: HYDROCODONE/APAP 10/325MG 1 EA TABLET GT SCH ×2 (09:07→21:05)
[2016-04-17] MEDS: PROSOURCE / PROSTAT (PYXIS) 30 ML UDC GT SCH (09:07)
[2016-04-17] MEDS: BACLOFEN (10 MG) 10 MG TABLET GT SCH ×4 (09:07→21:05)
[2016-04-17] MEDS: POLYETHYLENE GLYCOL 3350 17 GM POWD.PACK GT SCH (09:07)
[2016-04-17] MEDS: FAMOTIDINE (20 MG) 20 MG TABLET GT SCH ×2 (09:07→21:05)
[2016-04-17] MEDS: ASCORBIC ACID 500 MG TABLET GT SCH ×2 (09:07→17:12)
[2016-04-17] MEDS: MULTIVIT, IRON, MIN NO. 8, FA 1 TAB GT SCH (09:07)
[2016-04-17] MEDS: CLOPIDOGREL BISULFATE 75 MG TABLET GT SCH (09:07)
[2016-04-17] MEDS: CALCIUM CARBONATE 500 MG TAB.CHEW GT SCH ×3 (09:07→17:12)
[2016-04-17] MEDS: ENOXAPARIN SODIUM 40 MG/0.4 ML DISP.SYRIN SQ SCH (09:09)
[2016-04-17] MEDS: METHOCARBAMOL (750MG) 750 MG TABLET GT PRN (11:45)
[2016-04-17 19:42] VITALS: BP 99/55
[2016-04-17] MEDS: ATORVASTATIN CALCIUM 20MG TABLET GT SCH (21:06)
[2016-04-17] MEDS: ACETAMINOPHEN 650 MG/20 ML UDC- FOR SA PATIENTS ONLY GT PRN (23:20)
[2016-04-18] MEDS: ACIDOPHILUS/BULGARICUS 1 EACH TAB.CHEW GT SCH ×3 (08:32→16:25)
[2016-04-18] MEDS: CRANBERRY FRUIT 400 MG GT SCH (08:33)
[2016-04-18] MEDS: ESCITALOPRAM OXALATE (10 MG) 10 MG TABLET GT SCH (08:33)
[2016-04-18] MEDS: BACLOFEN (10 MG) 10 MG TABLET GT SCH ×4 (08:34→21:11)
[2016-04-18] MEDS: METOPROLOL TARTRATE 25 MG TABLET GT SCH ×2 (08:34→16:25)
[2016-04-18] MEDS: POLYETHYLENE GLYCOL 3350 17 GM POWD.PACK GT SCH (08:34)
[2016-04-18] MEDS: GABAPENTIN 300 MG CAPSULE GT SCH ×3 (08:35→16:25)
[2016-04-18] MEDS: FAMOTIDINE (20 MG) 20 MG TABLET GT SCH ×2 (08:35→21:11)
[2016-04-18] MEDS: CLOPIDOGREL BISULFATE 75 MG TABLET GT SCH (08:35)
[2016-04-18] MEDS: ASCORBIC ACID 500 MG TABLET GT SCH ×2 (08:36→16:25)
[2016-04-18] MEDS: CALCITRIOL 0.25 MCG CAPSULE PO SCH (08:36)
[2016-04-18] MEDS: PROSOURCE / PROSTAT (PYXIS) 30 ML UDC GT SCH (08:36)
[2016-04-18] MEDS: HYDROGEN PEROXIDE 480 ML BOTTLE TP SCH ×2 (08:37→21:44)
[2016-04-18] MEDS: HYDROGEL DRESSING 90 GM TUBE TP SCH ×4 (08:37→21:44)
[2016-04-18] MEDS: Z GUARD REMEDY 4 OZ OINT TP SCH ×4 (08:37→21:44)
[2016-04-18] MEDS: GENTAMICIN 0.1% OINT 15 GM TUBE TP SCH ×4 (08:37→21:44)
[2016-04-18] MEDS: MULTIVIT, IRON, MIN NO. 8, FA 1 TAB GT SCH (08:37)
[2016-04-18] MEDS: MINERAL OIL/PETROL OINT 396 GM JAR TP SCH ×3 (08:37→16:25)
[2016-04-18] MEDS: CALCIUM CARBONATE 500 MG TAB.CHEW GT SCH ×3 (08:37→16:25)
[2016-04-18] MEDS: ENOXAPARIN SODIUM 40 MG/0.4 ML DISP.SYRIN SQ SCH (08:39)
[2016-04-18] MEDS: HYDROCODONE/APAP 10/325MG 1 EA TABLET GT SCH ×2 (08:41→21:11)
[2016-04-18] MEDS: METHOCARBAMOL (750MG) 750 MG TABLET GT PRN (16:24)
[2016-04-18] MEDS: ACETAMINOPHEN 650 MG/20 ML UDC- FOR SA PATIENTS ONLY GT PRN (16:26)
[2016-04-18 17:36] VITALS: BP 120/71
[2016-04-18 20:00] VITALS: BP 101/61
[2016-04-18] MEDS: ATORVASTATIN CALCIUM 20MG TABLET GT SCH (21:12)
[2016-04-19 07:43] VITALS: BP 110/70
[2016-04-19] MEDS: HYDROCODONE/APAP 10/325MG 1 EA TABLET GT SCH ×2 (09:02→21:17)
[2016-04-19] MEDS: CRANBERRY FRUIT 400 MG GT SCH (09:10)
[2016-04-19] MEDS: ACIDOPHILUS/BULGARICUS 1 EACH TAB.CHEW GT SCH ×3 (09:11→17:53)
[2016-04-19] MEDS: ESCITALOPRAM OXALATE (10 MG) 10 MG TABLET GT SCH (09:11)
[2016-04-19] MEDS: BACLOFEN (10 MG) 10 MG TABLET GT SCH ×4 (09:11→21:16)
[2016-04-19] MEDS: POLYETHYLENE GLYCOL 3350 17 GM POWD.PACK GT SCH (09:12)
[2016-04-19] MEDS: GABAPENTIN 300 MG CAPSULE GT SCH ×3 (09:12→17:53)
[2016-04-19] MEDS: METOPROLOL TARTRATE 25 MG TABLET GT SCH ×2 (09:12→17:53)
[2016-04-19] MEDS: FAMOTIDINE (20 MG) 20 MG TABLET GT SCH ×2 (09:13→21:17)
[2016-04-19] MEDS: CLOPIDOGREL BISULFATE 75 MG TABLET GT SCH (09:13)
[2016-04-19] MEDS: PROSOURCE / PROSTAT (PYXIS) 30 ML UDC GT SCH (09:14)
[2016-04-19] MEDS: ASCORBIC ACID 500 MG TABLET GT SCH ×2 (09:14→17:53)
[2016-04-19] MEDS: CALCIUM CARBONATE 500 MG TAB.CHEW GT SCH ×3 (09:14→17:53)
[2016-04-19] MEDS: MULTIVIT, IRON, MIN NO. 8, FA 1 TAB GT SCH (09:14)
[2016-04-19] MEDS: CALCITRIOL 0.25 MCG CAPSULE PO SCH (09:15)
[2016-04-19] MEDS: ENOXAPARIN SODIUM 40 MG/0.4 ML DISP.SYRIN SQ SCH (09:20)
[2016-04-19] MEDS: GENTAMICIN 0.1% OINT 15 GM TUBE TP SCH ×4 (09:47→21:43)
[2016-04-19] MEDS: HYDROGEN PEROXIDE 480 ML BOTTLE TP SCH ×2 (09:47→21:43)
[2016-04-19] MEDS: MINERAL OIL/PETROL OINT 396 GM JAR TP SCH ×3 (09:47→17:53)
[2016-04-19] MEDS: Z GUARD REMEDY 4 OZ OINT TP SCH ×4 (09:47→21:44)
[2016-04-19] MEDS: HYDROGEL DRESSING 90 GM TUBE TP SCH ×4 (09:47→21:43)
--- NOTE | 2016-04-19 17:00 | NUR ---
Dr. Rafiq Diaz ordered Morphine sulfate 2 mg IVP x 1 prior to biopsy of nose lesion. Administered Morphine sulfate 2 mg IVP.
--- NOTE | 2016-04-19 17:31 | NUR ---
Dr. Rafiq Diaz came to do the biopsy for nose lesion. Pt tolerated procedure well. Minimal bleeding noted. Received order to apply triple antibiotic on the site q shift for 7 days.
--- NOTE | 2016-04-19 18:55 | NUR ---
Pt's Jackman catheter came out. Inserted new Jackman catheter, pt tolerated procedure well. Jackman catheter draining blood-tinged urine.
[2016-04-19] MEDS ORDERED: MORPHINE SULFATE INJ 2 MG/ML DISP.SYRIN IV ONE (19:00)
[2016-04-19 20:21] VITALS: BP 107/61
--- NOTE | 2016-04-19 21:00 | NUR ---
RN NOTES Received order from Dr. Walker to continue Lovenox 40mg SQ daily for DVT prophylaxis and nose lesion s/p biopsy site: cleanse with NS, pat dry. Apply Triple ATB oint qshift x 7 days, noted and carried out.
[2016-04-19] MEDS: ATORVASTATIN CALCIUM 20MG TABLET GT SCH (21:17)
[2016-04-20 07:50] VITALS: BP 110/66
[2016-04-20] MEDS: ACIDOPHILUS/BULGARICUS 1 EACH TAB.CHEW GT SCH ×3 (08:04→16:56)
[2016-04-20] MEDS: BACLOFEN (10 MG) 10 MG TABLET GT SCH ×4 (08:04→21:05)
[2016-04-20] MEDS: ESCITALOPRAM OXALATE (10 MG) 10 MG TABLET GT SCH (08:04)
[2016-04-20] MEDS: CRANBERRY FRUIT 400 MG GT SCH (08:04)
[2016-04-20] MEDS: FAMOTIDINE (20 MG) 20 MG TABLET GT SCH ×2 (08:05→21:06)
[2016-04-20] MEDS: MULTIVIT, IRON, MIN NO. 8, FA 1 TAB GT SCH (08:05)
[2016-04-20] MEDS: ASCORBIC ACID 500 MG TABLET GT SCH ×2 (08:05→16:57)
[2016-04-20] MEDS: GABAPENTIN 300 MG CAPSULE GT SCH ×3 (08:05→17:05)
[2016-04-20] MEDS: PROSOURCE / PROSTAT (PYXIS) 30 ML UDC GT SCH (08:05)
[2016-04-20] MEDS: CALCIUM CARBONATE 500 MG TAB.CHEW GT SCH ×3 (08:05→17:05)
[2016-04-20] MEDS: POLYETHYLENE GLYCOL 3350 17 GM POWD.PACK GT SCH (08:05)
[2016-04-20] MEDS: CALCITRIOL 0.25 MCG CAPSULE PO SCH (08:05)
[2016-04-20] MEDS: HYDROCODONE/APAP 10/325MG 1 EA TABLET GT SCH ×2 (08:05→21:06)
[2016-04-20] MEDS: METOPROLOL TARTRATE 25 MG TABLET GT SCH ×2 (08:05→16:57)
[2016-04-20] MEDS: CLOPIDOGREL BISULFATE 75 MG TABLET GT SCH (08:05)
[2016-04-20] MEDS: MINERAL OIL/PETROL OINT 396 GM JAR TP SCH ×3 (08:06→17:05)
[2016-04-20] MEDS: ENOXAPARIN SODIUM 40 MG/0.4 ML DISP.SYRIN SQ SCH (08:06)
[2016-04-20] MEDS: HYDROGEL DRESSING 90 GM TUBE TP SCH ×4 (09:00→21:45)
[2016-04-20] MEDS: GENTAMICIN 0.1% OINT 15 GM TUBE TP SCH ×4 (09:00→21:45)
[2016-04-20] MEDS: Z GUARD REMEDY 4 OZ OINT TP SCH ×4 (09:00→21:46)
[2016-04-20] MEDS: HYDROGEN PEROXIDE 480 ML BOTTLE TP SCH ×2 (09:00→21:45)
--- NOTE | 2016-04-20 09:54 | NUR ---
Spoke to resident who now agrees with tooth extraction. Informed Vilma ([id number]) and scheduled appointment for Monday May 02, 2016 at 9:30AM at the office of Dr. Montiel ([address] [place] [address] [address], [address] [place] [address] ). Informed Vilma and resident about appt. Informed charge nurse and nursing unit manager as well. Will schedule ambulance closer to date. Obtained permission from CNO.
[2016-04-20] MEDS: HYDROCODONE/APAP 10/325MG 1 EA TABLET GT PRN (13:41)
--- NOTE | 2016-04-20 14:05 | NUR ---
Seen by Dr Walker with no new order.
[2016-04-20] MEDS: MAGNESIUM HYDROXIDE 30 ML UDC GT PRN (16:58)
--- NOTE | 2016-04-20 17:30 | NUR ---
Seen by Peggy Hoffman NP with no new order.
[2016-04-20 19:55] VITALS: BP 96/59
[2016-04-20] MEDS ORDERED: NEO/BACI/POLY B/HC OINT (15GM) 15 GM TUBE TP SCH (21:00)
[2016-04-20] MEDS: ATORVASTATIN CALCIUM 20MG TABLET GT SCH (21:06)
[2016-04-20] MEDS: NEOMY SULF/BACITRAC ZN/POLY 15 GM TUBE TP SCH (21:45)
[2016-04-21 08:00] VITALS: BP 119/73
--- NOTE | 2016-04-21 08:01 | NUR ---
Patient was seen by welding engineer Dr. More Sanchez on 04/20/2016.
[2016-04-21] MEDS: ACIDOPHILUS/BULGARICUS 1 EACH TAB.CHEW GT SCH ×3 (08:44→17:53)
[2016-04-21] MEDS: BACLOFEN (10 MG) 10 MG TABLET GT SCH ×4 (08:44→21:04)
[2016-04-21] MEDS: ESCITALOPRAM OXALATE (10 MG) 10 MG TABLET GT SCH (08:44)
[2016-04-21] MEDS: CRANBERRY FRUIT 400 MG GT SCH (08:44)
[2016-04-21] MEDS: MULTIVIT, IRON, MIN NO. 8, FA 1 TAB GT SCH (08:45)
[2016-04-21] MEDS: CALCITRIOL 0.25 MCG CAPSULE PO SCH (08:45)
[2016-04-21] MEDS: CALCIUM CARBONATE 500 MG TAB.CHEW GT SCH ×3 (08:45→17:53)
[2016-04-21] MEDS: ASCORBIC ACID 500 MG TABLET GT SCH ×2 (08:45→17:53)
[2016-04-21] MEDS: PROSOURCE / PROSTAT (PYXIS) 30 ML UDC GT SCH (08:45)
[2016-04-21] MEDS: METOPROLOL TARTRATE 25 MG TABLET GT SCH ×2 (08:45→17:00)
[2016-04-21] MEDS: ENOXAPARIN SODIUM 40 MG/0.4 ML DISP.SYRIN SQ SCH (08:45)
[2016-04-21] MEDS: POLYETHYLENE GLYCOL 3350 17 GM POWD.PACK GT SCH (08:45)
[2016-04-21] MEDS: FAMOTIDINE (20 MG) 20 MG TABLET GT SCH ×2 (08:45→21:05)
[2016-04-21] MEDS: MINERAL OIL/PETROL OINT 396 GM JAR TP SCH ×3 (08:45→17:53)
[2016-04-21] MEDS: GABAPENTIN 300 MG CAPSULE GT SCH ×3 (08:45→17:53)
[2016-04-21] MEDS: CLOPIDOGREL BISULFATE 75 MG TABLET GT SCH (08:45)
[2016-04-21] MEDS: HYDROCODONE/APAP 10/325MG 1 EA TABLET GT PRN (08:46)
[2016-04-21] MEDS: HYDROGEL DRESSING 90 GM TUBE TP SCH ×4 (09:00→21:05)
[2016-04-21] MEDS: GENTAMICIN 0.1% OINT 15 GM TUBE TP SCH ×2 (09:00→21:05)
[2016-04-21] MEDS: HYDROGEN PEROXIDE 480 ML BOTTLE TP SCH ×2 (09:00→21:05)
[2016-04-21] MEDS: Z GUARD REMEDY 4 OZ OINT TP SCH ×4 (09:00→21:06)
[2016-04-21] MEDS: NEOMY SULF/BACITRAC ZN/POLY 15 GM TUBE TP SCH ×2 (09:00→21:05)
[2016-04-21] MEDS: HYDROCODONE/APAP 10/325MG 1 EA TABLET GT SCH ×2 (13:40→21:04)
--- NOTE | 2016-04-21 15:52 | NUR ---
Spoke with resident as he was requesting Teri as his RNA. Informed manager nursing home who stated that assignments will not change. hourly shift manager to follow up current RNA. Informed resident who was not happy but understood. SW stated she will follow up with resident again tomorrow to check in with him.
[2016-04-21 19:40] VITALS: BP 90/61
[2016-04-21] MEDS: ATORVASTATIN CALCIUM 20MG TABLET GT SCH (21:06)
[2016-04-22] MEDS: ACIDOPHILUS/BULGARICUS 1 EACH TAB.CHEW GT SCH ×3 (08:10→17:11)
[2016-04-22] MEDS: CRANBERRY FRUIT 400 MG GT SCH (08:10)
[2016-04-22] MEDS: ESCITALOPRAM OXALATE (10 MG) 10 MG TABLET GT SCH (08:10)
[2016-04-22] MEDS: BACLOFEN (10 MG) 10 MG TABLET GT SCH ×4 (08:10→21:48)
[2016-04-22] MEDS: GABAPENTIN 300 MG CAPSULE GT SCH ×3 (08:11→17:11)
[2016-04-22] MEDS: HYDROCODONE/APAP 10/325MG 1 EA TABLET GT SCH ×2 (08:11→21:49)
[2016-04-22] MEDS: POLYETHYLENE GLYCOL 3350 17 GM POWD.PACK GT SCH (08:11)
[2016-04-22] MEDS: METOPROLOL TARTRATE 25 MG TABLET GT SCH ×2 (08:11→17:11)
[2016-04-22] MEDS: PROSOURCE / PROSTAT (PYXIS) 30 ML UDC GT SCH (08:12)
[2016-04-22] MEDS: FAMOTIDINE (20 MG) 20 MG TABLET GT SCH ×2 (08:12→21:49)
[2016-04-22] MEDS: CLOPIDOGREL BISULFATE 75 MG TABLET GT SCH (08:12)
[2016-04-22] MEDS: MULTIVIT, IRON, MIN NO. 8, FA 1 TAB GT SCH (08:13)
[2016-04-22] MEDS: ASCORBIC ACID 500 MG TABLET GT SCH ×2 (08:13→17:11)
[2016-04-22] MEDS: CALCIUM CARBONATE 500 MG TAB.CHEW GT SCH ×3 (08:13→17:11)
[2016-04-22] MEDS: CALCITRIOL 0.25 MCG CAPSULE PO SCH (08:13)
[2016-04-22 08:16] VITALS: BP 137/79
[2016-04-22] MEDS: ENOXAPARIN SODIUM 40 MG/0.4 ML DISP.SYRIN SQ SCH (08:17)
[2016-04-22] MEDS: MINERAL OIL/PETROL OINT 396 GM JAR TP SCH ×3 (08:17→17:11)
[2016-04-22] MEDS: Z GUARD REMEDY 4 OZ OINT TP SCH ×4 (09:11→21:50)
[2016-04-22] MEDS: NEOMY SULF/BACITRAC ZN/POLY 15 GM TUBE TP SCH ×2 (09:11→21:50)
[2016-04-22] MEDS: HYDROGEN PEROXIDE 480 ML BOTTLE TP SCH ×2 (09:11→21:50)
[2016-04-22] MEDS: GENTAMICIN 0.1% OINT 15 GM TUBE TP SCH ×2 (09:11→21:49)
[2016-04-22] MEDS: HYDROGEL DRESSING 90 GM TUBE TP SCH ×4 (09:11→21:49)
[2016-04-22] MEDS: HYDROCODONE/APAP 10/325MG 1 EA TABLET GT PRN (14:15)
[2016-04-22 19:37] VITALS: BP 102/63
[2016-04-22] MEDS: ATORVASTATIN CALCIUM 20MG TABLET GT SCH (21:50)
[2016-04-23] MEDS: METHOCARBAMOL (750MG) 750 MG TABLET GT PRN (01:17)
[2016-04-23 07:35] VITALS: BP 110/68
[2016-04-23] MEDS: HYDROCODONE/APAP 10/325MG 1 EA TABLET GT SCH ×2 (08:10→21:22)
[2016-04-23] MEDS: ESCITALOPRAM OXALATE (10 MG) 10 MG TABLET GT SCH (08:10)
[2016-04-23] MEDS: GABAPENTIN 300 MG CAPSULE GT SCH ×3 (08:10→16:52)
[2016-04-23] MEDS: METOPROLOL TARTRATE 25 MG TABLET GT SCH ×2 (08:10→16:51)
[2016-04-23] MEDS: CRANBERRY FRUIT 400 MG GT SCH (08:10)
[2016-04-23] MEDS: POLYETHYLENE GLYCOL 3350 17 GM POWD.PACK GT SCH (08:10)
[2016-04-23] MEDS: BACLOFEN (10 MG) 10 MG TABLET GT SCH ×4 (08:10→21:21)
[2016-04-23] MEDS: ACIDOPHILUS/BULGARICUS 1 EACH TAB.CHEW GT SCH ×3 (08:10→16:51)
[2016-04-23] MEDS: PROSOURCE / PROSTAT (PYXIS) 30 ML UDC GT SCH (08:11)
[2016-04-23] MEDS: FAMOTIDINE (20 MG) 20 MG TABLET GT SCH ×2 (08:11→21:22)
[2016-04-23] MEDS: CLOPIDOGREL BISULFATE 75 MG TABLET GT SCH (08:11)
[2016-04-23] MEDS: MINERAL OIL/PETROL OINT 396 GM JAR TP SCH ×3 (08:11→16:52)
[2016-04-23] MEDS: CALCITRIOL 0.25 MCG CAPSULE PO SCH (08:11)
[2016-04-23] MEDS: ENOXAPARIN SODIUM 40 MG/0.4 ML DISP.SYRIN SQ SCH (08:11)
[2016-04-23] MEDS: MULTIVIT, IRON, MIN NO. 8, FA 1 TAB GT SCH (08:11)
[2016-04-23] MEDS: CALCIUM CARBONATE 500 MG TAB.CHEW GT SCH ×3 (08:11→16:52)
[2016-04-23] MEDS: ASCORBIC ACID 500 MG TABLET GT SCH ×2 (08:11→16:52)
[2016-04-23] MEDS: NEOMY SULF/BACITRAC ZN/POLY 15 GM TUBE TP SCH ×2 (09:10→21:23)
[2016-04-23] MEDS: Z GUARD REMEDY 4 OZ OINT TP SCH ×4 (09:10→21:23)
[2016-04-23] MEDS: HYDROGEN PEROXIDE 480 ML BOTTLE TP SCH ×2 (09:10→21:23)
[2016-04-23] MEDS: GENTAMICIN 0.1% OINT 15 GM TUBE TP SCH ×2 (09:10→21:23)
[2016-04-23] MEDS: HYDROGEL DRESSING 90 GM TUBE TP SCH ×4 (09:10→21:23)
[2016-04-23] MEDS: HYDROCODONE/APAP 10/325MG 1 EA TABLET GT PRN (11:36)
[2016-04-23 19:42] VITALS: BP 92/56
[2016-04-23] MEDS: ATORVASTATIN CALCIUM 20MG TABLET GT SCH (21:23)
[2016-04-24] MEDS: METHOCARBAMOL (750MG) 750 MG TABLET GT PRN (01:48)
[2016-04-24 08:09] VITALS: BP 103/69
[2016-04-24] MEDS: BACLOFEN (10 MG) 10 MG TABLET GT SCH ×4 (08:50→21:20)
[2016-04-24] MEDS: CRANBERRY FRUIT 400 MG GT SCH (08:50)
[2016-04-24] MEDS: METOPROLOL TARTRATE 25 MG TABLET GT SCH ×2 (08:50→16:42)
[2016-04-24] MEDS: ESCITALOPRAM OXALATE (10 MG) 10 MG TABLET GT SCH (08:50)
[2016-04-24] MEDS: ACIDOPHILUS/BULGARICUS 1 EACH TAB.CHEW GT SCH ×3 (08:50→16:41)
[2016-04-24] MEDS: MULTIVIT, IRON, MIN NO. 8, FA 1 TAB GT SCH (08:51)
[2016-04-24] MEDS: CALCITRIOL 0.25 MCG CAPSULE PO SCH (08:51)
[2016-04-24] MEDS: FAMOTIDINE (20 MG) 20 MG TABLET GT SCH ×2 (08:51→21:20)
[2016-04-24] MEDS: PROSOURCE / PROSTAT (PYXIS) 30 ML UDC GT SCH (08:51)
[2016-04-24] MEDS: CALCIUM CARBONATE 500 MG TAB.CHEW GT SCH ×3 (08:51→16:42)
[2016-04-24] MEDS: ASCORBIC ACID 500 MG TABLET GT SCH ×2 (08:51→16:42)
[2016-04-24] MEDS: ENOXAPARIN SODIUM 40 MG/0.4 ML DISP.SYRIN SQ SCH (08:51)
[2016-04-24] MEDS: CLOPIDOGREL BISULFATE 75 MG TABLET GT SCH (08:51)
[2016-04-24] MEDS: POLYETHYLENE GLYCOL 3350 17 GM POWD.PACK GT SCH (08:51)
[2016-04-24] MEDS: GABAPENTIN 300 MG CAPSULE GT SCH ×3 (08:51→16:42)
[2016-04-24] MEDS: Z GUARD REMEDY 4 OZ OINT TP SCH ×2 (09:00)
[2016-04-24] MEDS: HYDROGEN PEROXIDE 480 ML BOTTLE TP SCH ×2 (09:00→21:20)
[2016-04-24] MEDS: NEOMY SULF/BACITRAC ZN/POLY 15 GM TUBE TP SCH ×2 (09:00→21:21)
[2016-04-24] MEDS: MINERAL OIL/PETROL OINT 396 GM JAR TP SCH ×3 (09:00→16:42)
[2016-04-24] MEDS: HYDROCODONE/APAP 10/325MG 1 EA TABLET GT SCH ×2 (10:00→21:20)
[2016-04-24] MEDS: HYDROCODONE/APAP 10/325MG 1 EA TABLET GT PRN ×2 (12:00→12:18)
[2016-04-24 20:53] VITALS: BP 135/73
[2016-04-24] MEDS: ATORVASTATIN CALCIUM 20MG TABLET GT SCH (21:21)
[2016-04-25 07:57] VITALS: BP 115/74
[2016-04-25] MEDS: BACLOFEN (10 MG) 10 MG TABLET GT SCH ×4 (08:27→21:26)
[2016-04-25] MEDS: ACIDOPHILUS/BULGARICUS 1 EACH TAB.CHEW GT SCH ×3 (08:27→17:00)
[2016-04-25] MEDS: CRANBERRY FRUIT 400 MG GT SCH (08:27)
[2016-04-25] MEDS: ESCITALOPRAM OXALATE (10 MG) 10 MG TABLET GT SCH (08:27)
[2016-04-25] MEDS: POLYETHYLENE GLYCOL 3350 17 GM POWD.PACK GT SCH (08:28)
[2016-04-25] MEDS: GABAPENTIN 300 MG CAPSULE GT SCH ×3 (08:28→17:00)
[2016-04-25] MEDS: CLOPIDOGREL BISULFATE 75 MG TABLET GT SCH (08:28)
[2016-04-25] MEDS: HYDROCODONE/APAP 10/325MG 1 EA TABLET GT SCH ×2 (08:28→21:26)
[2016-04-25] MEDS: ASCORBIC ACID 500 MG TABLET GT SCH ×2 (08:28→17:00)
[2016-04-25] MEDS: CALCIUM CARBONATE 500 MG TAB.CHEW GT SCH ×3 (08:28→17:00)
[2016-04-25] MEDS: MULTIVIT, IRON, MIN NO. 8, FA 1 TAB GT SCH (08:28)
[2016-04-25] MEDS: CALCITRIOL 0.25 MCG CAPSULE PO SCH (08:28)
[2016-04-25] MEDS: FAMOTIDINE (20 MG) 20 MG TABLET GT SCH ×2 (08:28→21:26)
[2016-04-25] MEDS: METOPROLOL TARTRATE 25 MG TABLET GT SCH ×2 (08:28→17:00)
[2016-04-25] MEDS: PROSOURCE / PROSTAT (PYXIS) 30 ML UDC GT SCH (08:28)
[2016-04-25] MEDS: ENOXAPARIN SODIUM 40 MG/0.4 ML DISP.SYRIN SQ SCH (08:29)
[2016-04-25] MEDS: HYDROGEN PEROXIDE 480 ML BOTTLE TP SCH ×2 (09:00→21:27)
[2016-04-25] MEDS: MINERAL OIL/PETROL OINT 396 GM JAR TP SCH ×3 (09:00→17:00)
[2016-04-25] MEDS: GENTAMICIN 0.1% OINT 15 GM TUBE TP SCH ×4 (09:00→21:27)
[2016-04-25] MEDS: NEOMY SULF/BACITRAC ZN/POLY 15 GM TUBE TP SCH ×2 (09:00→21:27)
[2016-04-25] MEDS: HYDROGEL DRESSING 90 GM TUBE TP SCH ×4 (09:00→21:27)
[2016-04-25] MEDS: Z GUARD REMEDY 4 OZ OINT TP SCH ×4 (09:00→21:27)
[2016-04-25] MEDS: ACETAMINOPHEN 650 MG/20 ML UDC- FOR SA PATIENTS ONLY GT PRN (12:52)
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
[2016-04-25] MEDS: ATORVASTATIN CALCIUM 20MG TABLET GT SCH (21:27)
[2016-04-26 07:51] VITALS: BP 118/88
[2016-04-26] MEDS: ACIDOPHILUS/BULGARICUS 1 EACH TAB.CHEW GT SCH ×3 (08:31→17:46)
[2016-04-26] MEDS: BACLOFEN (10 MG) 10 MG TABLET GT SCH ×4 (08:31→21:09)
[2016-04-26] MEDS: CRANBERRY FRUIT 400 MG GT SCH (08:31)
[2016-04-26] MEDS: ESCITALOPRAM OXALATE (10 MG) 10 MG TABLET GT SCH (08:31)
[2016-04-26] MEDS: MULTIVIT, IRON, MIN NO. 8, FA 1 TAB GT SCH (08:33)
[2016-04-26] MEDS: HYDROCODONE/APAP 10/325MG 1 EA TABLET GT SCH ×2 (08:33→10:15)
[2016-04-26] MEDS: METOPROLOL TARTRATE 25 MG TABLET GT SCH ×2 (08:33→17:46)
[2016-04-26] MEDS: POLYETHYLENE GLYCOL 3350 17 GM POWD.PACK GT SCH (08:33)
[2016-04-26] MEDS: CALCIUM CARBONATE 500 MG TAB.CHEW GT SCH ×3 (08:33→17:46)
[2016-04-26] MEDS: PROSOURCE / PROSTAT (PYXIS) 30 ML UDC GT SCH (08:33)
[2016-04-26] MEDS: CLOPIDOGREL BISULFATE 75 MG TABLET GT SCH (08:33)
[2016-04-26] MEDS: FAMOTIDINE (20 MG) 20 MG TABLET GT SCH ×2 (08:33→21:10)
[2016-04-26] MEDS: GABAPENTIN 300 MG CAPSULE GT SCH ×3 (08:33→17:46)
[2016-04-26] MEDS: ENOXAPARIN SODIUM 40 MG/0.4 ML DISP.SYRIN SQ SCH (08:34)
[2016-04-26] MEDS: CALCITRIOL 0.25 MCG CAPSULE PO SCH (08:34)
[2016-04-26] MEDS: ASCORBIC ACID 500 MG TABLET GT SCH ×2 (08:34→17:46)
--- NOTE | 2016-04-26 09:00 | NUR ---
Called Dr. Eldridge's office spoke to Jeanne and she stated Dr. Eldridge is not coming to [place] due to contract ends last February. Informed Ms. Clark and she said to contact Dr. Curiel if she would be able to reinsert yarbrough catheter but she is on vacation until the . Notified Dr. Walker about patient status MD ordered to do bladder scan to see if there's any residuals. Bladder scan done with no residuals noted, patient able to void freely with adequate amount of urine no foul odor noted. Dr. Walker notified with order to keep the yarbrough catheter out. Ms. Clark made aware and she will inform wound nurse due to patient sacral wound. Reminded REPROGRAPHICS ASSOCIATE's to turn and reposition patient and to always keep patient clean and dry at all times. Endorsed accordingly.
--- NOTE | 2016-04-26 09:23 | NUR ---
Spoke to resident regarding aggressive behavior towards others. Resident explained to SW that he is in constant pain and therefore feels that his verbal abuse is justified. However, SW spoke to resident at length about his behavior and worked with resident to develop alternative ways of making his needs known. Resident stated that he was going to try to refrain from spitting on anyone or calling staff bad words. Stated he would try to direct his anger (stemming from pain) in more positive ways.
--- NOTE | 2016-04-26 09:30 | NUR ---
Seen by Dr Ugarte with no new order.
[2016-04-26] MEDS: Z GUARD REMEDY 4 OZ OINT TP SCH ×4 (10:45→21:11)
[2016-04-26] MEDS: MINERAL OIL/PETROL OINT 396 GM JAR TP SCH ×3 (10:45→17:47)
[2016-04-26] MEDS: NEOMY SULF/BACITRAC ZN/POLY 15 GM TUBE TP SCH ×2 (10:45→21:10)
[2016-04-26] MEDS: HYDROGEL DRESSING 90 GM TUBE TP SCH ×6 (10:45→21:10)
[2016-04-26] MEDS: GENTAMICIN 0.1% OINT 15 GM TUBE TP SCH ×4 (10:45→21:10)
[2016-04-26] MEDS: HYDROGEN PEROXIDE 480 ML BOTTLE TP SCH ×2 (10:45→21:10)
--- NOTE | 2016-04-26 13:14 | NUR ---
Patient made aware to keep yarbrough catheter out per Dr. Walker. Patient agreed with the plan of care.
[2016-04-26 19:57] VITALS: BP 92/55
[2016-04-26] MEDS: ATORVASTATIN CALCIUM 20MG TABLET GT SCH (21:11)
[2016-04-26] MEDS: HYDROCODONE/APAP 10/325MG 1 EA TABLET GT PRN (21:12)
[2016-04-27] MEDS: HYDROCODONE/APAP 10/325MG 1 EA TABLET GT PRN (08:10)
[2016-04-27] MEDS: BACLOFEN (10 MG) 10 MG TABLET GT SCH ×4 (08:29→20:59)
[2016-04-27] MEDS: CRANBERRY FRUIT 400 MG GT SCH (08:29)
[2016-04-27] MEDS: METOPROLOL TARTRATE 25 MG TABLET GT SCH ×2 (08:29→17:00)
[2016-04-27] MEDS: ACIDOPHILUS/BULGARICUS 1 EACH TAB.CHEW GT SCH ×3 (08:29→17:00)
[2016-04-27] MEDS: ESCITALOPRAM OXALATE (10 MG) 10 MG TABLET GT SCH (08:29)
[2016-04-27] MEDS: POLYETHYLENE GLYCOL 3350 17 GM POWD.PACK GT SCH (08:29)
[2016-04-27] MEDS: CALCITRIOL 0.25 MCG CAPSULE PO SCH (08:30)
[2016-04-27] MEDS: CLOPIDOGREL BISULFATE 75 MG TABLET GT SCH (08:30)
[2016-04-27] MEDS: ASCORBIC ACID 500 MG TABLET GT SCH ×2 (08:30→17:00)
[2016-04-27] MEDS: FAMOTIDINE (20 MG) 20 MG TABLET GT SCH ×2 (08:30→21:00)
[2016-04-27] MEDS: MULTIVIT, IRON, MIN NO. 8, FA 1 TAB GT SCH (08:30)
[2016-04-27] MEDS: GABAPENTIN 300 MG CAPSULE GT SCH ×3 (08:30→17:00)
[2016-04-27] MEDS: PROSOURCE / PROSTAT (PYXIS) 30 ML UDC GT SCH (08:30)
[2016-04-27] MEDS: CALCIUM CARBONATE 500 MG TAB.CHEW GT SCH ×3 (08:30→17:00)
[2016-04-27] MEDS: ENOXAPARIN SODIUM 40 MG/0.4 ML DISP.SYRIN SQ SCH (08:31)
[2016-04-27] MEDS: MINERAL OIL/PETROL OINT 396 GM JAR TP SCH ×3 (08:32→17:00)
[2016-04-27] MEDS: HYDROCODONE/APAP 10/325MG 1 EA TABLET GT SCH ×2 (13:35→21:00)
[2016-04-27] MEDS: GENTAMICIN 0.1% OINT 15 GM TUBE TP SCH ×4 (14:35→21:00)
[2016-04-27] MEDS: HYDROGEN PEROXIDE 480 ML BOTTLE TP SCH ×2 (14:35→21:00)
[2016-04-27] MEDS: HYDROGEL DRESSING 90 GM TUBE TP SCH ×6 (14:35→21:00)
[2016-04-27] MEDS: Z GUARD REMEDY 4 OZ OINT TP SCH ×4 (14:35→21:01)
[2016-04-27] MEDS: NEOMY SULF/BACITRAC ZN/POLY 15 GM TUBE TP SCH (14:35)
[2016-04-27 19:48] VITALS: BP 108/59
[2016-04-27] MEDS: ATORVASTATIN CALCIUM 20MG TABLET GT SCH (21:01)
[2016-04-28] MEDS: HYDROCODONE/APAP 10/325MG 1 EA TABLET GT PRN ×2 (04:59→15:48)
[2016-04-28 07:38] VITALS: BP 109/68
--- NOTE | 2016-04-28 08:13 | NUR ---
Social Service section of [facility] (annual) completed. Resident is alert and was able to answer all questions asked. Resident understands need for placement at this time.
[2016-04-28] MEDS: BACLOFEN (10 MG) 10 MG TABLET GT SCH ×4 (09:53→21:00)
[2016-04-28] MEDS: ACIDOPHILUS/BULGARICUS 1 EACH TAB.CHEW GT SCH ×3 (09:53→17:50)
[2016-04-28] MEDS: ESCITALOPRAM OXALATE (10 MG) 10 MG TABLET GT SCH (09:53)
[2016-04-28] MEDS: CRANBERRY FRUIT 400 MG GT SCH (09:53)
[2016-04-28] MEDS: GABAPENTIN 300 MG CAPSULE GT SCH ×3 (09:54→17:51)
[2016-04-28] MEDS: CALCITRIOL 0.25 MCG CAPSULE PO SCH (09:54)
[2016-04-28] MEDS: CALCIUM CARBONATE 500 MG TAB.CHEW GT SCH ×3 (09:54→17:51)
[2016-04-28] MEDS: MULTIVIT, IRON, MIN NO. 8, FA 1 TAB GT SCH (09:54)
[2016-04-28] MEDS: POLYETHYLENE GLYCOL 3350 17 GM POWD.PACK GT SCH (09:54)
[2016-04-28] MEDS: METOPROLOL TARTRATE 25 MG TABLET GT SCH ×2 (09:54→17:51)
[2016-04-28] MEDS: ASCORBIC ACID 500 MG TABLET GT SCH ×2 (09:54→17:51)
[2016-04-28] MEDS: PROSOURCE / PROSTAT (PYXIS) 30 ML UDC GT SCH (09:54)
[2016-04-28] MEDS: HYDROCODONE/APAP 10/325MG 1 EA TABLET GT SCH ×2 (09:54→21:00)
[2016-04-28] MEDS: CLOPIDOGREL BISULFATE 75 MG TABLET GT SCH (09:54)
[2016-04-28] MEDS: FAMOTIDINE (20 MG) 20 MG TABLET GT SCH ×2 (09:54→21:00)
[2016-04-28] MEDS: ENOXAPARIN SODIUM 40 MG/0.4 ML DISP.SYRIN SQ SCH (09:55)
[2016-04-28] MEDS: MINERAL OIL/PETROL OINT 396 GM JAR TP SCH ×3 (09:55→17:51)
--- NOTE | 2016-04-28 10:17 | NUR ---
Received order from Dr. Walker to try placing a Jackman catheter Fr 14. Subacute clinical rn manager Kary said that if pt needs a urology consult, pt needs to go to [facility].
[2016-04-28] MEDS: HYDROGEL DRESSING 90 GM TUBE TP SCH ×6 (10:30→21:00)
[2016-04-28] MEDS: Z GUARD REMEDY 4 OZ OINT TP SCH ×4 (10:30→21:00)
[2016-04-28] MEDS: HYDROGEN PEROXIDE 480 ML BOTTLE TP SCH ×2 (10:30→21:00)
[2016-04-28] MEDS: GENTAMICIN 0.1% OINT 15 GM TUBE TP SCH ×4 (10:30→21:00)
--- NOTE | 2016-04-28 15:46 | NUR ---
Scheduled ambulance transport for resident on Monday May 02, 2016 for 8:45AM pickup time going to the office of Dr. Montiel ([address], [place] [id number]) for tooth extraction (appt time: 9:30AM). SW will follow up tomorrow in order to verify that resident is able to attend his appt on Monday and if not, will cancel transportation. Resident will be in need of a portable suction machine and will need subacute staff member to accompany him to the appt. Will follow up.
--- NOTE | 2016-04-28 19:38 | NUR ---
Jackman catheter Fr [address], draining clear yellow urine, no leakage noted.
[2016-04-28 20:05] VITALS: BP 101/70
[2016-04-28] MEDS: ATORVASTATIN CALCIUM 20MG TABLET GT SCH (22:20)
[2016-04-29] MEDS: HYDROCODONE/APAP 10/325MG 1 EA TABLET GT PRN (06:20)
[2016-04-29 07:35] VITALS: BP 112/72
[2016-04-29] MEDS: CRANBERRY FRUIT 400 MG GT SCH (09:28)
[2016-04-29] MEDS: GABAPENTIN 300 MG CAPSULE GT SCH ×3 (09:28→17:00)
[2016-04-29] MEDS: ESCITALOPRAM OXALATE (10 MG) 10 MG TABLET GT SCH (09:28)
[2016-04-29] MEDS: FAMOTIDINE (20 MG) 20 MG TABLET GT SCH ×2 (09:28→21:47)
[2016-04-29] MEDS: METOPROLOL TARTRATE 25 MG TABLET GT SCH ×2 (09:28→17:00)
[2016-04-29] MEDS: BACLOFEN (10 MG) 10 MG TABLET GT SCH ×4 (09:28→21:46)
[2016-04-29] MEDS: MULTIVIT, IRON, MIN NO. 8, FA 1 TAB GT SCH (09:28)
[2016-04-29] MEDS: PROSOURCE / PROSTAT (PYXIS) 30 ML UDC GT SCH (09:28)
[2016-04-29] MEDS: CLOPIDOGREL BISULFATE 75 MG TABLET GT SCH (09:28)
[2016-04-29] MEDS: ACIDOPHILUS/BULGARICUS 1 EACH TAB.CHEW GT SCH ×3 (09:28→17:00)
[2016-04-29] MEDS: POLYETHYLENE GLYCOL 3350 17 GM POWD.PACK GT SCH (09:28)
[2016-04-29] MEDS: CALCIUM CARBONATE 500 MG TAB.CHEW GT SCH ×3 (09:29→17:00)
[2016-04-29] MEDS: ENOXAPARIN SODIUM 40 MG/0.4 ML DISP.SYRIN SQ SCH (09:29)
[2016-04-29] MEDS: MINERAL OIL/PETROL OINT 396 GM JAR TP SCH ×3 (09:29→17:00)
[2016-04-29] MEDS: ASCORBIC ACID 500 MG TABLET GT SCH ×2 (09:29→17:00)
[2016-04-29] MEDS: CALCITRIOL 0.25 MCG CAPSULE PO SCH (09:29)
[2016-04-29] MEDS: HYDROCODONE/APAP 10/325MG 1 EA TABLET GT SCH ×2 (10:00→21:47)
[2016-04-29] MEDS: HYDROGEL DRESSING 90 GM TUBE TP SCH ×6 (10:30→21:47)
[2016-04-29] MEDS: Z GUARD REMEDY 4 OZ OINT TP SCH ×4 (10:30→21:48)
[2016-04-29] MEDS: GENTAMICIN 0.1% OINT 15 GM TUBE TP SCH ×4 (10:30→21:47)
[2016-04-29] MEDS: HYDROGEN PEROXIDE 480 ML BOTTLE TP SCH ×2 (10:30→21:47)
--- NOTE | 2016-04-29 12:10 | NUR ---
Asked Dr. Ugarte if resident is cleared for tooth extraction fro Monday, he said OK, except to hold Lovenox on Monday and Monday (05/01 & 05/02) and to resume Lovenox on Monday05/03/16. Orders noted and carried out. Vilma, sister in law notified and updated her of the current orders and what had happen with the F/C. At this time, F/C in place and draining well. Appreciated the call.
--- NOTE | 2016-04-29 15:35 | NUR ---
Clarified with Dr. Ugarte if he wants to hold patient's Plavix 1 week prior and Lovenox 1 day prior to tooth extraction as noted in his progress notes. MD said that this is what he wants to do, SSD notified to reschedule dental appointment and transportation.
--- NOTE | 2016-04-29 15:42 | NUR ---
Cancelled resident's dentist appt as Dr. Ugarte wants to hold Plavix for one week prior to extraction and Lovenox one day prior to extraction. Will follow up on Monday May 02, 2016 for new appt time and day. Spoke to Marbella at [facility] to cancel transportation. WIll re-schedule transportation once new date is given. Will notify charge nurse once new appointment time is set in order for appropriate medication to be held. Charge nurse informed of cancelled appt.
--- NOTE | 2016-04-29 17:49 | NUR ---
RT Note: Patient is on Oxygen Tx. Cool Aerosol 35%, 8L/min. Breath sounds equal. Trach. midline. Patient alert and oriented and responsive to verbal commands. Ambu bag and spare trach at the bed side.
--- NOTE | 2016-04-29 18:15 | NUR ---
Seen and examined by Dr. Walker, made aware that dental appointment will be rescheduled. Patient stated " My tooth doesn't hurt anyway". NNO given at this time.
[2016-04-29 20:15] VITALS: BP 105/73
[2016-04-29] MEDS: ATORVASTATIN CALCIUM 20MG TABLET GT SCH (21:48)
[2016-04-30] MEDS: HYDROCODONE/APAP 10/325MG 1 EA TABLET GT PRN (05:55)
[2016-04-30 07:55] VITALS: BP 109/69
[2016-04-30] MEDS ORDERED: ENOXAPARIN SODIUM 40 MG/0.4 ML DISP.SYRIN SQ SCH (09:00)
[2016-04-30] MEDS: ACIDOPHILUS/BULGARICUS 1 EACH TAB.CHEW GT SCH ×3 (09:24→17:59)
[2016-04-30] MEDS: BACLOFEN (10 MG) 10 MG TABLET GT SCH ×4 (09:24→21:25)
[2016-04-30] MEDS: ESCITALOPRAM OXALATE (10 MG) 10 MG TABLET GT SCH (09:24)
[2016-04-30] MEDS: CRANBERRY FRUIT 400 MG GT SCH (09:24)
[2016-04-30] MEDS: CALCITRIOL 0.25 MCG CAPSULE PO SCH (09:25)
[2016-04-30] MEDS: FAMOTIDINE (20 MG) 20 MG TABLET GT SCH ×2 (09:25→21:25)
[2016-04-30] MEDS: ASCORBIC ACID 500 MG TABLET GT SCH ×2 (09:25→17:59)
[2016-04-30] MEDS: PROSOURCE / PROSTAT (PYXIS) 30 ML UDC GT SCH (09:25)
[2016-04-30] MEDS: CLOPIDOGREL BISULFATE 75 MG TABLET GT SCH (09:25)
[2016-04-30] MEDS: MULTIVIT, IRON, MIN NO. 8, FA 1 TAB GT SCH (09:25)
[2016-04-30] MEDS: CALCIUM CARBONATE 500 MG TAB.CHEW GT SCH ×3 (09:25→17:59)
[2016-04-30] MEDS: POLYETHYLENE GLYCOL 3350 17 GM POWD.PACK GT SCH (09:25)
[2016-04-30] MEDS: METOPROLOL TARTRATE 25 MG TABLET GT SCH ×2 (09:25→17:59)
[2016-04-30] MEDS: GABAPENTIN 300 MG CAPSULE GT SCH ×3 (09:25→17:59)
[2016-04-30] MEDS: MINERAL OIL/PETROL OINT 396 GM JAR TP SCH ×3 (09:27→17:59)
[2016-04-30] MEDS: HYDROCODONE/APAP 10/325MG 1 EA TABLET GT SCH ×2 (10:00→21:25)
[2016-04-30] MEDS: HYDROGEN PEROXIDE 480 ML BOTTLE TP SCH ×2 (10:30→21:26)
[2016-04-30] MEDS: GENTAMICIN 0.1% OINT 15 GM TUBE TP SCH ×4 (10:30→21:26)
[2016-04-30] MEDS: HYDROGEL DRESSING 90 GM TUBE TP SCH ×6 (10:30→21:25)
[2016-04-30] MEDS: Z GUARD REMEDY 4 OZ OINT TP SCH ×4 (10:30→21:26)
--- NOTE | 2016-04-30 11:58 | NUR ---
RT Note Patient received trached on mechanical vent. Breath sounds equal. Trach midline. Ambu bag and spare trach at the bed side..Treatment given as ordered. No adverse reactions noticed. Vent plugged into red outlet and alarms set and audible. Addendum: 04/30/16 at 1207 by NORMA GOLDEN RT RT Note. Clarification Patient is on Cool Aerosol instead on mechanical ventilator. PRN Tx not given at this time.
[2016-04-30 20:07] VITALS: BP 101/60
[2016-04-30] MEDS: ATORVASTATIN CALCIUM 20MG TABLET GT SCH (21:26)
[2016-05-01 07:58] VITALS: BP 133/68
[2016-05-01] MEDS: ACIDOPHILUS/BULGARICUS 1 EACH TAB.CHEW GT SCH ×3 (08:52→16:18)
[2016-05-01] MEDS: ESCITALOPRAM OXALATE (10 MG) 10 MG TABLET GT SCH (08:52)
[2016-05-01] MEDS: BACLOFEN (10 MG) 10 MG TABLET GT SCH ×4 (08:52→21:13)
[2016-05-01] MEDS: CRANBERRY FRUIT 400 MG GT SCH (08:52)
[2016-05-01] MEDS: METOPROLOL TARTRATE 25 MG TABLET GT SCH ×2 (08:53→16:18)
[2016-05-01] MEDS: POLYETHYLENE GLYCOL 3350 17 GM POWD.PACK GT SCH (08:53)
[2016-05-01] MEDS: CALCITRIOL 0.25 MCG CAPSULE PO SCH (08:53)
[2016-05-01] MEDS: PROSOURCE / PROSTAT (PYXIS) 30 ML UDC GT SCH (08:53)
[2016-05-01] MEDS: GABAPENTIN 300 MG CAPSULE GT SCH ×3 (08:53→16:18)
[2016-05-01] MEDS: FAMOTIDINE (20 MG) 20 MG TABLET GT SCH ×2 (08:53→21:14)
[2016-05-01] MEDS: ASCORBIC ACID 500 MG TABLET GT SCH ×2 (08:53→16:18)
[2016-05-01] MEDS: CLOPIDOGREL BISULFATE 75 MG TABLET GT SCH (08:53)
[2016-05-01] MEDS: CALCIUM CARBONATE 500 MG TAB.CHEW GT SCH ×3 (08:53→16:18)
[2016-05-01] MEDS: MULTIVIT, IRON, MIN NO. 8, FA 1 TAB GT SCH (08:53)
[2016-05-01] MEDS: HYDROCODONE/APAP 10/325MG 1 EA TABLET GT SCH ×2 (08:54→21:14)
[2016-05-01] MEDS: MINERAL OIL/PETROL OINT 396 GM JAR TP SCH ×3 (09:00→17:37)
[2016-05-01] MEDS: GENTAMICIN 0.1% OINT 15 GM TUBE TP SCH ×4 (09:00→21:14)
[2016-05-01] MEDS: HYDROGEN PEROXIDE 480 ML BOTTLE TP SCH ×2 (09:00→21:14)
[2016-05-01] MEDS: Z GUARD REMEDY 4 OZ OINT TP SCH ×4 (09:00→21:14)
[2016-05-01] MEDS: HYDROGEL DRESSING 90 GM TUBE TP SCH ×6 (09:00→21:14)
[2016-05-01] MEDS: HYDROCODONE/APAP 10/325MG 1 EA TABLET GT PRN (17:38)
[2016-05-01 19:42] VITALS: BP 102/69
[2016-05-01] MEDS: ATORVASTATIN CALCIUM 20MG TABLET GT SCH (21:14)
[2016-05-02 07:48] VITALS: BP 117/76
[2016-05-02] MEDS: CLOPIDOGREL BISULFATE 75 MG TABLET GT SCH (09:00)
[2016-05-02] MEDS: ESCITALOPRAM OXALATE (10 MG) 10 MG TABLET GT SCH (09:12)
[2016-05-02] MEDS: ACIDOPHILUS/BULGARICUS 1 EACH TAB.CHEW GT SCH ×3 (09:12→16:57)
[2016-05-02] MEDS: BACLOFEN (10 MG) 10 MG TABLET GT SCH ×4 (09:12→21:15)
[2016-05-02] MEDS: CRANBERRY FRUIT 400 MG GT SCH (09:12)
[2016-05-02] MEDS: GABAPENTIN 300 MG CAPSULE GT SCH ×3 (09:13→16:58)
[2016-05-02] MEDS: METOPROLOL TARTRATE 25 MG TABLET GT SCH ×2 (09:13→16:58)
[2016-05-02] MEDS: FAMOTIDINE (20 MG) 20 MG TABLET GT SCH ×2 (09:13→21:15)
[2016-05-02] MEDS: PROSOURCE / PROSTAT (PYXIS) 30 ML UDC GT SCH (09:13)
[2016-05-02] MEDS: HYDROCODONE/APAP 10/325MG 1 EA TABLET GT SCH ×2 (09:13→21:15)
[2016-05-02] MEDS: POLYETHYLENE GLYCOL 3350 17 GM POWD.PACK GT SCH (09:13)
[2016-05-02] MEDS: ASCORBIC ACID 500 MG TABLET GT SCH ×2 (09:14→16:58)
[2016-05-02] MEDS: CALCITRIOL 0.25 MCG CAPSULE PO SCH (09:14)
[2016-05-02] MEDS: MULTIVIT, IRON, MIN NO. 8, FA 1 TAB GT SCH (09:14)
[2016-05-02] MEDS: CALCIUM CARBONATE 500 MG TAB.CHEW GT SCH ×3 (09:14→16:58)
--- NOTE | 2016-05-02 09:23 | NUR ---
Dentist appt was rescheduled to 05/16/16 at 1pm. Charge nurse and [id number]-md-ipr informed.
[2016-05-02] MEDS: HYDROGEN PEROXIDE 480 ML BOTTLE TP SCH ×2 (10:00→21:16)
[2016-05-02] MEDS: Z GUARD REMEDY 4 OZ OINT TP SCH ×4 (10:00→21:16)
[2016-05-02] MEDS: HYDROGEL DRESSING 90 GM TUBE TP SCH ×6 (10:00→21:15)
[2016-05-02] MEDS: GENTAMICIN 0.1% OINT 15 GM TUBE TP SCH ×4 (10:00→21:16)
[2016-05-02] MEDS: MINERAL OIL/PETROL OINT 396 GM JAR TP SCH ×3 (10:00→16:58)
--- NOTE | 2016-05-02 15:45 | NUR ---
farmworker animal Mayra said pt is scheduled for a tooth extraction on 05/16/16. Received order to hold Lovenox on 05/15/16 and 05/16/16, hold Plavix from 05/09/16 to 05/16/16.
[2016-05-02 19:42] VITALS: BP 113/71
[2016-05-02] MEDS: ATORVASTATIN CALCIUM 20MG TABLET GT SCH (21:16)
[2016-05-03 07:45] VITALS: BP 139/80
[2016-05-03] MEDS: ACIDOPHILUS/BULGARICUS 1 EACH TAB.CHEW GT SCH ×3 (08:45→17:00)
[2016-05-03] MEDS: ESCITALOPRAM OXALATE (10 MG) 10 MG TABLET GT SCH (08:45)
[2016-05-03] MEDS: CRANBERRY FRUIT 400 MG GT SCH (08:45)
[2016-05-03] MEDS: BACLOFEN (10 MG) 10 MG TABLET GT SCH ×4 (08:45→21:26)
[2016-05-03] MEDS: ASCORBIC ACID 500 MG TABLET GT SCH ×2 (08:46→17:00)
[2016-05-03] MEDS: HYDROCODONE/APAP 10/325MG 1 EA TABLET GT SCH ×2 (08:46→21:26)
[2016-05-03] MEDS: PROSOURCE / PROSTAT (PYXIS) 30 ML UDC GT SCH (08:46)
[2016-05-03] MEDS: CALCIUM CARBONATE 500 MG TAB.CHEW GT SCH ×3 (08:46→17:00)
[2016-05-03] MEDS: FAMOTIDINE (20 MG) 20 MG TABLET GT SCH ×2 (08:46→21:26)
[2016-05-03] MEDS: METOPROLOL TARTRATE 25 MG TABLET GT SCH ×2 (08:46→17:00)
[2016-05-03] MEDS: CLOPIDOGREL BISULFATE 75 MG TABLET GT SCH (08:46)
[2016-05-03] MEDS: CALCITRIOL 0.25 MCG CAPSULE PO SCH (08:46)
[2016-05-03] MEDS: GABAPENTIN 300 MG CAPSULE GT SCH ×3 (08:46→17:00)
[2016-05-03] MEDS: POLYETHYLENE GLYCOL 3350 17 GM POWD.PACK GT SCH (08:46)
[2016-05-03] MEDS: MULTIVIT, IRON, MIN NO. 8, FA 1 TAB GT SCH (08:46)
[2016-05-03] MEDS: ENOXAPARIN SODIUM 40 MG/0.4 ML DISP.SYRIN SQ SCH (08:47)
[2016-05-03] MEDS: Z GUARD REMEDY 4 OZ OINT TP SCH ×4 (09:30→21:27)
[2016-05-03] MEDS: MINERAL OIL/PETROL OINT 396 GM JAR TP SCH ×3 (09:30→17:00)
[2016-05-03] MEDS: GENTAMICIN 0.1% OINT 15 GM TUBE TP SCH ×4 (09:30→21:27)
[2016-05-03] MEDS: HYDROGEN PEROXIDE 480 ML BOTTLE TP SCH ×2 (09:30→21:27)
[2016-05-03] MEDS: HYDROGEL DRESSING 90 GM TUBE TP SCH ×6 (09:30→21:26)
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
--- NOTE | 2016-05-03 18:15 | NUR ---
Nurse reported that pt's excoriated skin surrounding the sacral wound looks worse than before. Received order for wound care consult.
[2016-05-03 19:34] VITALS: BP 109/72
[2016-05-03] MEDS: ATORVASTATIN CALCIUM 20MG TABLET GT SCH (21:27)
[2016-05-04 07:42] VITALS: BP 112/66
[2016-05-04] MEDS: ESCITALOPRAM OXALATE (10 MG) 10 MG TABLET GT SCH (08:47)
[2016-05-04] MEDS: BACLOFEN (10 MG) 10 MG TABLET GT SCH ×4 (08:47→21:31)
[2016-05-04] MEDS: ACIDOPHILUS/BULGARICUS 1 EACH TAB.CHEW GT SCH ×3 (08:47→17:18)
[2016-05-04] MEDS: METOPROLOL TARTRATE 25 MG TABLET GT SCH ×2 (08:49→17:18)
[2016-05-04] MEDS: GABAPENTIN 300 MG CAPSULE GT SCH ×3 (08:49→17:18)
[2016-05-04] MEDS: POLYETHYLENE GLYCOL 3350 17 GM POWD.PACK GT SCH (08:49)
[2016-05-04] MEDS: MULTIVIT, IRON, MIN NO. 8, FA 1 TAB GT SCH (08:50)
[2016-05-04] MEDS: FAMOTIDINE (20 MG) 20 MG TABLET GT SCH ×2 (08:50→21:31)
[2016-05-04] MEDS: CALCIUM CARBONATE 500 MG TAB.CHEW GT SCH ×3 (08:50→17:18)
[2016-05-04] MEDS: ASCORBIC ACID 500 MG TABLET GT SCH ×2 (08:50→17:18)
[2016-05-04] MEDS: PROSOURCE / PROSTAT (PYXIS) 30 ML UDC GT SCH (08:50)
[2016-05-04] MEDS: CALCITRIOL 0.25 MCG CAPSULE PO SCH (08:50)
[2016-05-04] MEDS: HYDROCODONE/APAP 10/325MG 1 EA TABLET GT SCH ×2 (08:50→23:30)
[2016-05-04] MEDS: ENOXAPARIN SODIUM 40 MG/0.4 ML DISP.SYRIN SQ SCH (08:50)
[2016-05-04] MEDS: CLOPIDOGREL BISULFATE 75 MG TABLET GT SCH (08:50)
[2016-05-04] MEDS: MINERAL OIL/PETROL OINT 396 GM JAR TP SCH ×3 (09:00→17:18)
[2016-05-04] MEDS: HYDROGEL DRESSING 90 GM TUBE TP SCH ×6 (09:00→23:30)
[2016-05-04] MEDS ORDERED: CRANBERRY GT SCH (09:00)
[2016-05-04] MEDS: Z GUARD REMEDY 4 OZ OINT TP SCH ×4 (09:00→23:30)
[2016-05-04] MEDS: GENTAMICIN 0.1% OINT 15 GM TUBE TP SCH ×5 (09:00→23:30)
[2016-05-04] MEDS: HYDROGEN PEROXIDE 480 ML BOTTLE TP SCH ×2 (09:00→23:30)
[2016-05-04] MEDS ORDERED: TUBERCULIN,PURIF.PROT.DERIV. 5 TU/0.1 ML VIAL ID SCH (10:00)
--- NOTE | 2016-05-04 10:58 | NUR ---
WOUND CARE CONSULT: PT SEEN FOR SACRAL ULCER FOLLOW UP TODAY. SACRAL ULCER, STAGE IV MEASURES 4CM X 4CM X 0.1CM WITH SMALL AMOUNT OF SEROSANGUINOUS DRAINAGE, NO ODOR. PERIWOUND AREAS OF BUTTOCKS HAVE EXCORIATION. RT BUTTOCK STAGE IV ULCER ALSO EVALUATED AND NOTED TO MEASURE 4CM X 3CM X 1CM WITH SMALL AMOUNT OF SEROSANGUINOUS DRAINAGE, NO ODOR. SACRAL AND RT BUTTOCK ULCERS BOTH HAVE RED GRANULATION TISSUE. RECOMMEND CONTINUE SAME TREATMENT FOR BOTH ULCERS ;GENTAMICIN, HYDROGEL TO WOUNDS, Z GUARD TO PERIWOUND AREAS, COVER WITH OIL EMULSION DSG, ABD PADS AND SECURE WITH TAPE. PT STATES IS HAVING SOME DISCOMFORT WITH HIS LEFT UPPER MIDBACK AREA. LEFT UPPER MIDBACK WOUND MEASURES 9CM X 8CM X 0.1CM AND IS RED IN COLOR. SMALL TO MODERATE AMOUNT OF YELLOWISH DRAINAGE NOTED, NO ODOR. THERE IS A RASH TO MIDBACK AREA. RECOMMENDATIONS MADE FOR GENTAMICIN TO LEFT UPPER MIDBACK WOUND, COVER WITH OIL EMULSION DSG, ABD PAD AND SECURE WITH TAPE. LOTRISONE RECOMMENDED FOR RASH. DISCUSSED WITH NURSING STAFF. PT ON FIRST STEP MATTRESS. ALL SKIN PROTECTION MEASURES IN PLACE. MD IN AGREEMENT WITH PLAN OF CARE.
[2016-05-04] MEDS: METHOCARBAMOL (750MG) 750 MG TABLET GT PRN (12:50)
[2016-05-04] MEDS: HYDROCODONE/APAP 10/325MG 1 EA TABLET GT PRN (13:17)
[2016-05-04] MEDS: ACETAMINOPHEN 650 MG/20 ML UDC- FOR SA PATIENTS ONLY GT PRN (15:22)
--- NOTE | 2016-05-04 16:33 | NUR ---
Patient's Jackman catheter was out during rendering care. RE-inserted back with minimal bleeding. Will continue to monitor urine output.
--- NOTE | 2016-05-04 18:44 | NUR ---
Patient had fever 103F. Blood pressure was 110/70, REsp-22, P-133. Tylenol 650 mg was given and cooling measures was rendered. Removed extra blankets. REcehcedk after 45 min and found 102.[address] Walker and notified his change of condition. Also notified him that we re-inserted the yarbrough catheter since the yarbrough catheter was pulled out. There's a moderate fresh blood in urine. And he is being complaining of severe pain during all day. Notified him that all pain due medications was given and per patient its not being relieved. Doctor said do not gaive any extra pain medication for now. Do CBC, BMP, 2 sets of blood culture, urine analysis, urine culture, chest X-ray and do bladder scan to determine the tip of yarbrough catheter. All orders noted and carried out.
[2016-05-04 19:42] LABS: CALCIUM, SERUM 8.5 mg/dL (8.5-10.1); CREATININE 0.9 mg/dL (0.6-1.3); POTASSIUM 4.1 mmol/L (3.5-5.1)
[2016-05-04 20:13] VITALS: BP 106/56
[2016-05-04 20:41] LABS: HEMATOCRIT 34 % (39-51); HEMOGLOBIN 10.4 g/dL (13.5-17.5); LYMPHOCYTES # (AUTO) 0.3 /CMM (0.8-4.8); LYMPHOCYTES % (AUTO) 1.2 % (20.0-44.0); MEAN CORPUSCULAR HEMOGLOBIN 25 PG (26.0-33.0); MEAN CORPUSCULAR HGB CONC 31 g/dl (31.0-36.0); MEAN CORPUSCULAR VOLUME 80 fL (80-96); MONOCYTES # (AUTO) 0.4 /CMM (0.1-1.30); NEUTROPHILS % (AUTO) 96.8 % (43.0-81.0); PLATELET COUNT (AUTO) 399 /CMM (150-450); RDW COEFFICIENT OF VARIATION 20.4 (11.5-15.0); WHITE BLOOD COUNT (AUTO) 22.8 K/uL (4.3-11.0)
[2016-05-04 20:54] LABS: BAND % (MANUAL) 2 % (0.0-5.0); MONOCYTES % (MANUAL) 6 % (0-11.0); NEUTROPHILS % (MANUAL) 92 (42-76)
--- NOTE | 2016-05-04 21:30 | NUR ---
Relayed labs result and CXR to ,WBC 22.8,CXR Bibasilar pneumonia ,left greater than right,still pending blood culture and ultrasound.Temp 99.0 BP 106/66.New order to start with Zosyn 4.5gms Q 8hrs x 10 days,but was change to Merrem 500mg q 12 d/t pt allergic to Penicillins.Dr. Walker ordere also Infection consult to Diana in AM.All orders carried out.Called sister in law Esparza [place] left message to Armani to call back [facility] for update.
[2016-05-04] MEDS: ATORVASTATIN CALCIUM 20MG TABLET GT SCH (21:31)
[2016-05-04 21:54] LABS: LYMPHOCYTES % (MANUAL) 0 % (16-48)
[2016-05-04] MEDS ORDERED: MEROPENEM 500 MG in IV NS 0.9% 50 ML IV SCH (22:00)
[2016-05-04] MEDS: CLOTRIMAZOLE/BETAMETASONE DIPROPIONATE 15 GM TUBE TP SCH (23:30)
[2016-05-05 04:48] LABS: BILIRUBIN,URINE NEGATIVE (NEGATIVE); BLOOD, URINE 3+ Ery/uL (NEGATIVE); COLOR,URINE YELLOW (YELLOW); KETONES,URINE NEGATIVE (NEGATIVE); LEUKOCYTE ESTERASE ,URINE 3+ (NEGATIVE); NITRITE, URINE POSITIVE (NEGATIVE); PROTEIN,URINE TRACE mg/dl (NEGATIVE); UGLUCOSE NEGATIVE (NEGATIVE); UROBILINOGEN,URINE 0.2 EU/dL (0.2)
[2016-05-05 05:27] LABS: APPEARANCE,URINE CLOUDY (CLEAR)
[2016-05-05 05:28] LABS: RBC,URINE TOO NUMEROUS TO COUN /HPF (0-2); WBC,URINE TOO NUMEROUS TO COUN /HPF (0-3)
[2016-05-05 05:29] LABS: BACTERIA,URINE 3+ /HPF (None Seen)
[2016-05-05 05:47] LABS: SQUAMOUS EPITHELIAL CELL,UR Rare /HPF (None Seen)
--- NOTE | 2016-05-05 06:08 | NUR ---
Pt.remains latest temp 99.7,covered with blanket,refused to be removed,he said he is cold.During the night temp down to 98.8,no distress noted.With good urine output of 800cc yellow to pinkish in color.Still pending result for bladder ultrasound.Will continue to monitor.
[2016-05-05 07:51] VITALS: BP 112/66
[2016-05-05] MEDS: ESCITALOPRAM OXALATE (10 MG) 10 MG TABLET GT SCH (08:31)
[2016-05-05] MEDS: BACLOFEN (10 MG) 10 MG TABLET GT SCH ×4 (08:31→21:40)
[2016-05-05] MEDS: ACIDOPHILUS/BULGARICUS 1 EACH TAB.CHEW GT SCH ×3 (08:31→16:54)
[2016-05-05] MEDS: CRANBERRY GT SCH (08:31)
[2016-05-05] MEDS: CALCITRIOL 0.25 MCG CAPSULE PO SCH (08:32)
[2016-05-05] MEDS: HYDROCODONE/APAP 10/325MG 1 EA TABLET GT SCH ×2 (08:32→21:42)
[2016-05-05] MEDS: CALCIUM CARBONATE 500 MG TAB.CHEW GT SCH ×3 (08:32→16:54)
[2016-05-05] MEDS: MULTIVIT, IRON, MIN NO. 8, FA 1 TAB GT SCH (08:32)
[2016-05-05] MEDS: GABAPENTIN 300 MG CAPSULE GT SCH ×3 (08:32→16:54)
[2016-05-05] MEDS: CLOPIDOGREL BISULFATE 75 MG TABLET GT SCH (08:32)
[2016-05-05] MEDS: PROSOURCE / PROSTAT (PYXIS) 30 ML UDC GT SCH (08:32)
[2016-05-05] MEDS: ENOXAPARIN SODIUM 40 MG/0.4 ML DISP.SYRIN SQ SCH (08:32)
[2016-05-05] MEDS: ASCORBIC ACID 500 MG TABLET GT SCH ×2 (08:32→16:54)
[2016-05-05] MEDS: METOPROLOL TARTRATE 25 MG TABLET GT SCH ×2 (08:32→16:54)
[2016-05-05] MEDS: FAMOTIDINE (20 MG) 20 MG TABLET GT SCH ×2 (08:32→21:42)
[2016-05-05] MEDS: POLYETHYLENE GLYCOL 3350 17 GM POWD.PACK GT SCH (08:32)
[2016-05-05] MEDS: HYDROGEN PEROXIDE 480 ML BOTTLE TP SCH ×2 (09:00→21:43)
[2016-05-05] MEDS: HYDROGEL DRESSING 90 GM TUBE TP SCH ×6 (09:00→21:43)
[2016-05-05] MEDS: GENTAMICIN 0.1% OINT 15 GM TUBE TP SCH ×6 (09:00→21:43)
[2016-05-05] MEDS: Z GUARD REMEDY 4 OZ OINT TP SCH ×4 (09:00→21:43)
[2016-05-05] MEDS: MEROPENEM 500 MG in IV NS 0.9% 50 ML IV SCH ×2 (09:16→21:49)
[2016-05-05] MEDS: MINERAL OIL/PETROL OINT 396 GM JAR TP SCH ×3 (09:46→16:54)
[2016-05-05] MEDS: CLOTRIMAZOLE/BETAMETASONE DIPROPIONATE 15 GM TUBE TP SCH ×2 (10:00→21:43)
--- NOTE | 2016-05-05 10:17 | NUR ---
Relayed result of bladder ultrasound result to Dr. Curiel. Ultrasound result shows Jackman catheter balloon is in the prostatic urethra. Urine is yellow in color, no leaking noted.
--- NOTE | 2016-05-05 12:35 | NUR ---
Reminded CARLI Ortiz to see pt for consult.
[2016-05-05] MEDS: HYDROCODONE/APAP 10/325MG 1 EA TABLET GT PRN (13:22)
--- NOTE | 2016-05-05 14:15 | NUR ---
Seen by Dr. Rafiq Diaz. He removed the stitches on the pt's nose and ordered to apply triple antibiotic ointment q shift for 3 days.
[2016-05-05 20:24] VITALS: BP 116/68
[2016-05-05] MEDS: ATORVASTATIN CALCIUM 20MG TABLET GT SCH (21:44)
[2016-05-05] MEDS: NEOMY SULF/BACITRAC ZN/POLY 15 GM TUBE TP SCH (21:48)
[2016-05-06 07:32] VITALS: BP 107/70
[2016-05-06] MEDS: HYDROGEL DRESSING 90 GM TUBE TP SCH ×6 (09:00→22:00)
[2016-05-06] MEDS: GENTAMICIN 0.1% OINT 15 GM TUBE TP SCH ×6 (09:00→22:00)
[2016-05-06] MEDS: NEOMY SULF/BACITRAC ZN/POLY 15 GM TUBE TP SCH ×2 (09:00→22:00)
[2016-05-06] MEDS: MINERAL OIL/PETROL OINT 396 GM JAR TP SCH ×3 (09:00→17:18)
[2016-05-06] MEDS: Z GUARD REMEDY 4 OZ OINT TP SCH ×4 (09:00→22:00)
[2016-05-06] MEDS: CLOTRIMAZOLE/BETAMETASONE DIPROPIONATE 15 GM TUBE TP SCH ×2 (09:00→22:00)
[2016-05-06] MEDS: HYDROGEN PEROXIDE 480 ML BOTTLE TP SCH ×2 (09:00→22:00)
[2016-05-06] MEDS: CRANBERRY GT SCH (09:15)
[2016-05-06] MEDS: BACLOFEN (10 MG) 10 MG TABLET GT SCH ×4 (09:15→21:25)
[2016-05-06] MEDS: ACIDOPHILUS/BULGARICUS 1 EACH TAB.CHEW GT SCH ×3 (09:15→17:16)
[2016-05-06] MEDS: ESCITALOPRAM OXALATE (10 MG) 10 MG TABLET GT SCH (09:15)
[2016-05-06] MEDS: FAMOTIDINE (20 MG) 20 MG TABLET GT SCH ×2 (09:16→21:26)
[2016-05-06] MEDS: PROSOURCE / PROSTAT (PYXIS) 30 ML UDC GT SCH (09:16)
[2016-05-06] MEDS: MULTIVIT, IRON, MIN NO. 8, FA 1 TAB GT SCH (09:16)
[2016-05-06] MEDS: ENOXAPARIN SODIUM 40 MG/0.4 ML DISP.SYRIN SQ SCH (09:16)
[2016-05-06] MEDS: CLOPIDOGREL BISULFATE 75 MG TABLET GT SCH (09:16)
[2016-05-06] MEDS: GABAPENTIN 300 MG CAPSULE GT SCH ×3 (09:16→17:16)
[2016-05-06] MEDS: METOPROLOL TARTRATE 25 MG TABLET GT SCH ×2 (09:16→17:16)
[2016-05-06] MEDS: POLYETHYLENE GLYCOL 3350 17 GM POWD.PACK GT SCH (09:16)
[2016-05-06] MEDS: ASCORBIC ACID 500 MG TABLET GT SCH ×2 (09:16→17:16)
[2016-05-06] MEDS: CALCIUM CARBONATE 500 MG TAB.CHEW GT SCH ×3 (09:16→17:16)
[2016-05-06] MEDS: HYDROCODONE/APAP 10/325MG 1 EA TABLET GT SCH ×2 (09:16→22:00)
[2016-05-06] MEDS: CALCITRIOL 0.25 MCG CAPSULE PO SCH (09:16)
[2016-05-06] MEDS: MEROPENEM 500 MG in IV NS 0.9% 50 ML IV SCH ×2 (10:00→21:54)
--- NOTE | 2016-05-06 12:47 | NUR ---
Reminded Diana of ID consult for resident, she stated that she will be in later on today.
[2016-05-06] MEDS: MAGNESIUM HYDROXIDE 30 ML UDC GT PRN (18:47)
[2016-05-06 20:02] VITALS: BP 105/66
[2016-05-06] MEDS: ATORVASTATIN CALCIUM 20MG TABLET GT SCH (21:26)
[2016-05-07 07:43] VITALS: BP 109/72
[2016-05-07] MEDS: BACLOFEN (10 MG) 10 MG TABLET GT SCH ×4 (08:48→20:45)
[2016-05-07] MEDS: POLYETHYLENE GLYCOL 3350 17 GM POWD.PACK GT SCH (08:48)
[2016-05-07] MEDS: CRANBERRY GT SCH (08:48)
[2016-05-07] MEDS: METOPROLOL TARTRATE 25 MG TABLET GT SCH ×2 (08:48→16:55)
[2016-05-07] MEDS: ESCITALOPRAM OXALATE (10 MG) 10 MG TABLET GT SCH (08:48)
[2016-05-07] MEDS: ACIDOPHILUS/BULGARICUS 1 EACH TAB.CHEW GT SCH ×3 (08:48→16:55)
[2016-05-07] MEDS: GABAPENTIN 300 MG CAPSULE GT SCH ×3 (08:48→16:55)
[2016-05-07] MEDS: ENOXAPARIN SODIUM 40 MG/0.4 ML DISP.SYRIN SQ SCH (08:49)
[2016-05-07] MEDS: MINERAL OIL/PETROL OINT 396 GM JAR TP SCH ×3 (08:49→16:55)
[2016-05-07] MEDS: FAMOTIDINE (20 MG) 20 MG TABLET GT SCH ×2 (08:49→20:45)
[2016-05-07] MEDS: CALCIUM CARBONATE 500 MG TAB.CHEW GT SCH ×3 (08:49→16:55)
[2016-05-07] MEDS: MULTIVIT, IRON, MIN NO. 8, FA 1 TAB GT SCH (08:49)
[2016-05-07] MEDS: PROSOURCE / PROSTAT (PYXIS) 30 ML UDC GT SCH (08:49)
[2016-05-07] MEDS: HYDROCODONE/APAP 10/325MG 1 EA TABLET GT SCH ×2 (08:49→21:33)
[2016-05-07] MEDS: CLOPIDOGREL BISULFATE 75 MG TABLET GT SCH (08:49)
[2016-05-07] MEDS: ASCORBIC ACID 500 MG TABLET GT SCH ×2 (08:49→16:55)
[2016-05-07] MEDS: CALCITRIOL 0.25 MCG CAPSULE PO SCH (08:49)
[2016-05-07] MEDS: MEROPENEM 500 MG in IV NS 0.9% 50 ML IV SCH ×2 (10:00→22:00)
[2016-05-07] MEDS: HYDROGEL DRESSING 90 GM TUBE TP SCH ×6 (15:00→21:33)
[2016-05-07] MEDS: CLOTRIMAZOLE/BETAMETASONE DIPROPIONATE 15 GM TUBE TP SCH ×2 (15:00→21:34)
[2016-05-07] MEDS: HYDROGEN PEROXIDE 480 ML BOTTLE TP SCH ×2 (15:00→21:34)
[2016-05-07] MEDS: Z GUARD REMEDY 4 OZ OINT TP SCH ×4 (15:00→21:34)
[2016-05-07] MEDS: NEOMY SULF/BACITRAC ZN/POLY 15 GM TUBE TP SCH ×2 (15:00→21:34)
[2016-05-07] MEDS: GENTAMICIN 0.1% OINT 15 GM TUBE TP SCH ×6 (15:00→21:34)
[2016-05-07] MEDS: HYDROCODONE/APAP 10/325MG 1 EA TABLET GT PRN (16:18)
[2016-05-07 19:30] VITALS: BP 100/58
[2016-05-07] MEDS: ATORVASTATIN CALCIUM 20MG TABLET GT SCH (21:34)
[2016-05-08 07:39] VITALS: BP 110/68
[2016-05-08] MEDS: ENOXAPARIN SODIUM 40 MG/0.4 ML DISP.SYRIN SQ SCH (09:00)
[2016-05-08] MEDS: CRANBERRY GT SCH (09:53)
[2016-05-08] MEDS: MULTIVIT, IRON, MIN NO. 8, FA 1 TAB GT SCH (09:54)
[2016-05-08] MEDS: ASCORBIC ACID 500 MG TABLET GT SCH ×2 (09:54→17:06)
[2016-05-08] MEDS: CALCIUM CARBONATE 500 MG TAB.CHEW GT SCH ×3 (09:54→17:06)
[2016-05-08] MEDS: POLYETHYLENE GLYCOL 3350 17 GM POWD.PACK GT SCH (09:54)
[2016-05-08] MEDS: HYDROCODONE/APAP 10/325MG 1 EA TABLET GT SCH ×2 (09:54→20:14)
[2016-05-08] MEDS: ESCITALOPRAM OXALATE (10 MG) 10 MG TABLET GT SCH (09:54)
[2016-05-08] MEDS: METOPROLOL TARTRATE 25 MG TABLET GT SCH ×2 (09:54→17:40)
[2016-05-08] MEDS: ACIDOPHILUS/BULGARICUS 1 EACH TAB.CHEW GT SCH ×3 (09:54→17:06)
[2016-05-08] MEDS: GABAPENTIN 300 MG CAPSULE GT SCH ×3 (09:54→17:06)
[2016-05-08] MEDS: BACLOFEN (10 MG) 10 MG TABLET GT SCH ×4 (09:54→20:13)
[2016-05-08] MEDS: PROSOURCE / PROSTAT (PYXIS) 30 ML UDC GT SCH (09:54)
[2016-05-08] MEDS: FAMOTIDINE (20 MG) 20 MG TABLET GT SCH ×2 (09:54→20:14)
[2016-05-08] MEDS: CLOPIDOGREL BISULFATE 75 MG TABLET GT SCH (09:54)
[2016-05-08] MEDS: MINERAL OIL/PETROL OINT 396 GM JAR TP SCH ×3 (09:55→17:06)
[2016-05-08] MEDS: CALCITRIOL 0.25 MCG CAPSULE PO SCH (09:55)
[2016-05-08] MEDS: HYDROGEL DRESSING 90 GM TUBE TP SCH ×5 (09:55→20:14)
[2016-05-08] MEDS: GENTAMICIN 0.1% OINT 15 GM TUBE TP SCH ×6 (09:57→20:15)
[2016-05-08] MEDS: CLOTRIMAZOLE/BETAMETASONE DIPROPIONATE 15 GM TUBE TP SCH ×2 (09:58→20:15)
[2016-05-08] MEDS: HYDROGEN PEROXIDE 480 ML BOTTLE TP SCH ×2 (09:58→20:15)
[2016-05-08] MEDS: NEOMY SULF/BACITRAC ZN/POLY 15 GM TUBE TP SCH (09:59)
[2016-05-08] MEDS: Z GUARD REMEDY 4 OZ OINT TP SCH ×4 (09:59→20:15)
[2016-05-08] MEDS: MEROPENEM 500 MG in IV NS 0.9% 50 ML IV SCH ×2 (10:00→22:00)
[2016-05-08 20:32] VITALS: BP 110/61
[2016-05-08] MEDS: ATORVASTATIN CALCIUM 20MG TABLET GT SCH (21:59)
[2016-05-09 07:34] VITALS: BP 119/69
[2016-05-09] MEDS: ASCORBIC ACID 500 MG TABLET GT SCH ×2 (09:00→16:19)
[2016-05-09] MEDS: FAMOTIDINE (20 MG) 20 MG TABLET GT SCH ×2 (09:00→20:32)
[2016-05-09] MEDS: Z GUARD REMEDY 4 OZ OINT TP SCH ×4 (09:00→20:33)
[2016-05-09] MEDS: GABAPENTIN 300 MG CAPSULE GT SCH ×3 (09:00→16:18)
[2016-05-09] MEDS: POLYETHYLENE GLYCOL 3350 17 GM POWD.PACK GT SCH (09:00)
[2016-05-09] MEDS: CRANBERRY GT SCH (09:00)
[2016-05-09] MEDS: MINERAL OIL/PETROL OINT 396 GM JAR TP SCH ×3 (09:00→16:19)
[2016-05-09] MEDS: BACLOFEN (10 MG) 10 MG TABLET GT SCH ×4 (09:00→20:31)
[2016-05-09] MEDS: ESCITALOPRAM OXALATE (10 MG) 10 MG TABLET GT SCH (09:00)
[2016-05-09] MEDS: HYDROGEN PEROXIDE 480 ML BOTTLE TP SCH ×2 (09:00→20:33)
[2016-05-09] MEDS: GENTAMICIN 0.1% OINT 15 GM TUBE TP SCH ×6 (09:00→20:33)
[2016-05-09] MEDS: METOPROLOL TARTRATE 25 MG TABLET GT SCH ×2 (09:00→16:18)
[2016-05-09] MEDS: CLOTRIMAZOLE/BETAMETASONE DIPROPIONATE 15 GM TUBE TP SCH ×2 (09:00→20:33)
[2016-05-09] MEDS: ACIDOPHILUS/BULGARICUS 1 EACH TAB.CHEW GT SCH ×3 (09:00→16:18)
[2016-05-09] MEDS: CALCIUM CARBONATE 500 MG TAB.CHEW GT SCH ×3 (09:00→16:18)
[2016-05-09] MEDS: HYDROGEL DRESSING 90 GM TUBE TP SCH ×4 (09:00→20:32)
[2016-05-09] MEDS: MULTIVIT, IRON, MIN NO. 8, FA 1 TAB GT SCH (09:00)
[2016-05-09] MEDS: HYDROCODONE/APAP 10/325MG 1 EA TABLET GT SCH ×2 (09:00→20:32)
[2016-05-09] MEDS: PROSOURCE / PROSTAT (PYXIS) 30 ML UDC GT SCH (09:00)
[2016-05-09] MEDS: CALCITRIOL 0.25 MCG CAPSULE PO SCH (09:00)
[2016-05-09] MEDS: ENOXAPARIN SODIUM 40 MG/0.4 ML DISP.SYRIN SQ SCH (09:01)
[2016-05-09] MEDS: MEROPENEM 500 MG in IV NS 0.9% 50 ML IV SCH ×2 (10:30→22:00)
--- NOTE | 2016-05-09 16:35 | NUR ---
CARLI Ortiz said she will not change pt's antibiotic based on the urine C/S. Pt afebrile, verbalizes that he feels fine.
[2016-05-09 20:02] VITALS: BP 127/71
[2016-05-09] MEDS: ATORVASTATIN CALCIUM 20MG TABLET GT SCH (22:19)
[2016-05-10 07:45] VITALS: BP 138/87
[2016-05-10] MEDS: CRANBERRY GT SCH (09:46)
[2016-05-10] MEDS: BACLOFEN (10 MG) 10 MG TABLET GT SCH ×4 (09:46→20:35)
[2016-05-10] MEDS: ACIDOPHILUS/BULGARICUS 1 EACH TAB.CHEW GT SCH ×3 (09:46→16:24)
[2016-05-10] MEDS: ESCITALOPRAM OXALATE (10 MG) 10 MG TABLET GT SCH (09:46)
[2016-05-10] MEDS: POLYETHYLENE GLYCOL 3350 17 GM POWD.PACK GT SCH (09:47)
[2016-05-10] MEDS: FAMOTIDINE (20 MG) 20 MG TABLET GT SCH ×2 (09:47→20:36)
[2016-05-10] MEDS: METOPROLOL TARTRATE 25 MG TABLET GT SCH ×2 (09:47→16:24)
[2016-05-10] MEDS: HYDROCODONE/APAP 10/325MG 1 EA TABLET GT SCH ×2 (09:47→20:35)
[2016-05-10] MEDS: GABAPENTIN 300 MG CAPSULE GT SCH ×3 (09:47→16:24)
[2016-05-10] MEDS: MULTIVIT, IRON, MIN NO. 8, FA 1 TAB GT SCH (09:48)
[2016-05-10] MEDS: CALCITRIOL 0.25 MCG CAPSULE PO SCH (09:48)
[2016-05-10] MEDS: HYDROGEL DRESSING 90 GM TUBE TP SCH ×4 (09:48→20:36)
[2016-05-10] MEDS: ASCORBIC ACID 500 MG TABLET GT SCH ×2 (09:48→16:25)
[2016-05-10] MEDS: PROSOURCE / PROSTAT (PYXIS) 30 ML UDC GT SCH (09:48)
[2016-05-10] MEDS: ENOXAPARIN SODIUM 40 MG/0.4 ML DISP.SYRIN SQ SCH (09:48)
[2016-05-10] MEDS: MINERAL OIL/PETROL OINT 396 GM JAR TP SCH ×3 (09:48→16:25)
[2016-05-10] MEDS: CALCIUM CARBONATE 500 MG TAB.CHEW GT SCH ×3 (09:48→16:24)
[2016-05-10] MEDS: GENTAMICIN 0.1% OINT 15 GM TUBE TP SCH ×6 (09:48→20:36)
[2016-05-10] MEDS: HYDROGEN PEROXIDE 480 ML BOTTLE TP SCH ×2 (09:49→20:37)
[2016-05-10] MEDS: CLOTRIMAZOLE/BETAMETASONE DIPROPIONATE 15 GM TUBE TP SCH ×2 (09:49→20:37)
[2016-05-10] MEDS: Z GUARD REMEDY 4 OZ OINT TP SCH ×4 (09:49→20:37)
[2016-05-10] MEDS: MEROPENEM 500 MG in IV NS 0.9% 50 ML IV SCH ×2 (10:30→22:00)
[2016-05-10 22:01] VITALS: BP 120/76
[2016-05-10] MEDS: ATORVASTATIN CALCIUM 20MG TABLET GT SCH (22:11)
[2016-05-11 07:29] LABS: BASOPHILS % (AUTO) 0.4 % (0.0-2.0); EOSINOPHILS # (AUTO) 0.3 /CMM (0.0-0.7); EOSINOPHILS % (AUTO) 3.5 % (0.0-6.0); HEMATOCRIT 34 % (39-51); HEMOGLOBIN 10.5 g/dL (13.5-17.5); LYMPHOCYTES # (AUTO) 2.1 /CMM (0.8-4.8); LYMPHOCYTES % (AUTO) 25.7 % (20.0-44.0); MEAN CORPUSCULAR HEMOGLOBIN 25 PG (26.0-33.0); MEAN CORPUSCULAR HGB CONC 31 g/dl (31.0-36.0); MEAN CORPUSCULAR VOLUME 80 fL (80-96); MONOCYTES # (AUTO) 0.6 /CMM (0.1-1.30); MONOCYTES % (AUTO) 7.8 % (2.0-12.0); NEUTROPHILS # (AUTO) 5.1 /CMM (1.8-8.9); NEUTROPHILS % (AUTO) 62.6 % (43.0-81.0); PLATELET COUNT (AUTO) 403 /CMM (150-450); RDW COEFFICIENT OF VARIATION 20.1 (11.5-15.0); RED BLOOD CELL COUNT(AUTO) 4.22 MIL/uL (4.5-6.0); WHITE BLOOD COUNT (AUTO) 8.1 K/uL (4.3-11.0)
[2016-05-11 07:45] VITALS: BP_SYST 104; BP_SYST 121; BP_DIAS 58; BP_DIAS 65
[2016-05-11] MEDS: ESCITALOPRAM OXALATE (10 MG) 10 MG TABLET GT SCH (09:08)
[2016-05-11] MEDS: POLYETHYLENE GLYCOL 3350 17 GM POWD.PACK GT SCH (09:08)
[2016-05-11] MEDS: BACLOFEN (10 MG) 10 MG TABLET GT SCH ×4 (09:08→21:13)
[2016-05-11] MEDS: ACIDOPHILUS/BULGARICUS 1 EACH TAB.CHEW GT SCH ×3 (09:08→17:57)
[2016-05-11] MEDS: METOPROLOL TARTRATE 25 MG TABLET GT SCH ×2 (09:08→17:57)
[2016-05-11] MEDS: GABAPENTIN 300 MG CAPSULE GT SCH ×3 (09:08→17:57)
[2016-05-11] MEDS: CRANBERRY GT SCH (09:08)
[2016-05-11] MEDS: CALCIUM CARBONATE 500 MG TAB.CHEW GT SCH ×3 (09:09→17:57)
[2016-05-11] MEDS: FAMOTIDINE (20 MG) 20 MG TABLET GT SCH ×2 (09:09→21:13)
[2016-05-11] MEDS: PROSOURCE / PROSTAT (PYXIS) 30 ML UDC GT SCH (09:09)
[2016-05-11] MEDS: ASCORBIC ACID 500 MG TABLET GT SCH ×2 (09:09→17:57)
[2016-05-11] MEDS: CALCITRIOL 0.25 MCG CAPSULE PO SCH (09:09)
[2016-05-11] MEDS: HYDROCODONE/APAP 10/325MG 1 EA TABLET GT SCH ×3 (09:09→23:00)
[2016-05-11] MEDS: MINERAL OIL/PETROL OINT 396 GM JAR TP SCH ×3 (09:09→17:57)
[2016-05-11] MEDS: ENOXAPARIN SODIUM 40 MG/0.4 ML DISP.SYRIN SQ SCH (09:09)
[2016-05-11] MEDS: MULTIVIT, IRON, MIN NO. 8, FA 1 TAB GT SCH (09:09)
[2016-05-11] MEDS: CLOTRIMAZOLE/BETAMETASONE DIPROPIONATE 15 GM TUBE TP SCH ×2 (09:10→23:00)
[2016-05-11] MEDS: GENTAMICIN 0.1% OINT 15 GM TUBE TP SCH ×6 (09:10→23:00)
[2016-05-11] MEDS: HYDROGEN PEROXIDE 480 ML BOTTLE TP SCH ×2 (09:10→23:00)
[2016-05-11] MEDS: Z GUARD REMEDY 4 OZ OINT TP SCH ×4 (09:10→23:00)
[2016-05-11] MEDS: HYDROGEL DRESSING 90 GM TUBE TP SCH ×4 (09:10→23:00)
[2016-05-11] MEDS: MEROPENEM 500 MG in IV NS 0.9% 50 ML IV SCH ×2 (09:52→21:47)
--- NOTE | 2016-05-11 11:30 | NUR ---
Sister in-law was reminded about resident's dental appointment on Monday.
[2016-05-11] MEDS: HYDROCODONE/APAP 10/325MG 1 EA TABLET GT PRN (16:00)
[2016-05-11 19:41] VITALS: BP 121/66
[2016-05-11] MEDS: ATORVASTATIN CALCIUM 20MG TABLET GT SCH (21:14)
[2016-05-12 07:45] VITALS: BP 134/68
[2016-05-12] MEDS: GABAPENTIN 300 MG CAPSULE GT SCH ×3 (09:44→16:36)
[2016-05-12] MEDS: ACIDOPHILUS/BULGARICUS 1 EACH TAB.CHEW GT SCH ×3 (09:44→16:36)
[2016-05-12] MEDS: POLYETHYLENE GLYCOL 3350 17 GM POWD.PACK GT SCH (09:44)
[2016-05-12] MEDS: BACLOFEN (10 MG) 10 MG TABLET GT SCH ×4 (09:44→21:17)
[2016-05-12] MEDS: ESCITALOPRAM OXALATE (10 MG) 10 MG TABLET GT SCH (09:44)
[2016-05-12] MEDS: CRANBERRY GT SCH (09:44)
[2016-05-12] MEDS: METOPROLOL TARTRATE 25 MG TABLET GT SCH ×2 (09:44→16:36)
[2016-05-12] MEDS: ENOXAPARIN SODIUM 40 MG/0.4 ML DISP.SYRIN SQ SCH (09:45)
[2016-05-12] MEDS: FAMOTIDINE (20 MG) 20 MG TABLET GT SCH ×2 (09:45→21:17)
[2016-05-12] MEDS: MINERAL OIL/PETROL OINT 396 GM JAR TP SCH ×3 (09:45→16:36)
[2016-05-12] MEDS: ASCORBIC ACID 500 MG TABLET GT SCH ×2 (09:45→16:36)
[2016-05-12] MEDS: PROSOURCE / PROSTAT (PYXIS) 30 ML UDC GT SCH (09:45)
[2016-05-12] MEDS: MULTIVIT, IRON, MIN NO. 8, FA 1 TAB GT SCH (09:45)
[2016-05-12] MEDS: CALCITRIOL 0.25 MCG CAPSULE PO SCH (09:45)
[2016-05-12] MEDS: CALCIUM CARBONATE 500 MG TAB.CHEW GT SCH ×3 (09:45→16:36)
[2016-05-12] MEDS: HYDROCODONE/APAP 10/325MG 1 EA TABLET GT SCH ×2 (09:45→21:37)
[2016-05-12] MEDS: GENTAMICIN 0.1% OINT 15 GM TUBE TP SCH ×6 (10:00→21:38)
[2016-05-12] MEDS: Z GUARD REMEDY 4 OZ OINT TP SCH ×4 (10:00→21:38)
[2016-05-12] MEDS: HYDROGEL DRESSING 90 GM TUBE TP SCH ×4 (10:00→21:38)
[2016-05-12] MEDS: CLOTRIMAZOLE/BETAMETASONE DIPROPIONATE 15 GM TUBE TP SCH ×2 (10:00→21:38)
[2016-05-12] MEDS: HYDROGEN PEROXIDE 480 ML BOTTLE TP SCH ×2 (10:00→21:38)
[2016-05-12] MEDS: MEROPENEM 500 MG in IV NS 0.9% 50 ML IV SCH ×2 (10:38→21:35)
--- NOTE | 2016-05-12 13:00 | NUR ---
Received order from CARLI Ortiz to give Merrem 500 mg IV until tomorrow.
[2016-05-12 19:39] VITALS: BP 109/61
[2016-05-12] MEDS: ATORVASTATIN CALCIUM 20MG TABLET GT SCH (21:17)
[2016-05-13 08:09] VITALS: BP 118/63
--- NOTE | 2016-05-13 08:57 | NUR ---
Scheduled [facility] for resident's dental appt with Dr. Montiel ([address], [place] [address]) . Pickup time will be 12:30Pm. Confirmed with the office of Dr. Montiel that resident is coming for his appt on Monday05/16/2016. Appt time: 1pm.
[2016-05-13] MEDS: CRANBERRY GT SCH (08:58)
[2016-05-13] MEDS: ACIDOPHILUS/BULGARICUS 1 EACH TAB.CHEW GT SCH ×3 (08:58→17:39)
[2016-05-13] MEDS: POLYETHYLENE GLYCOL 3350 17 GM POWD.PACK GT SCH (08:59)
[2016-05-13] MEDS: METOPROLOL TARTRATE 25 MG TABLET GT SCH ×2 (08:59→17:40)
[2016-05-13] MEDS: GABAPENTIN 300 MG CAPSULE GT SCH ×3 (08:59→17:40)
[2016-05-13] MEDS: ESCITALOPRAM OXALATE (10 MG) 10 MG TABLET GT SCH (08:59)
[2016-05-13] MEDS: BACLOFEN (10 MG) 10 MG TABLET GT SCH ×4 (08:59→21:34)
[2016-05-13] MEDS: PROSOURCE / PROSTAT (PYXIS) 30 ML UDC GT SCH (08:59)
[2016-05-13] MEDS: MULTIVIT, IRON, MIN NO. 8, FA 1 TAB GT SCH (08:59)
[2016-05-13] MEDS: CALCIUM CARBONATE 500 MG TAB.CHEW GT SCH ×3 (08:59→17:40)
[2016-05-13] MEDS: FAMOTIDINE (20 MG) 20 MG TABLET GT SCH ×2 (08:59→21:34)
[2016-05-13] MEDS: CALCITRIOL 0.25 MCG CAPSULE PO SCH (09:00)
[2016-05-13] MEDS: ASCORBIC ACID 500 MG TABLET GT SCH ×2 (09:00→17:40)
[2016-05-13] MEDS: MINERAL OIL/PETROL OINT 396 GM JAR TP SCH ×3 (09:02→17:40)
[2016-05-13] MEDS: ENOXAPARIN SODIUM 40 MG/0.4 ML DISP.SYRIN SQ SCH (09:02)
[2016-05-13] MEDS: MEROPENEM 500 MG in IV NS 0.9% 50 ML IV SCH (10:17)
--- NOTE | 2016-05-13 11:30 | NUR ---
RAVI received call from the office of Dr. Montiel ([facility]) stating that Dr. Montiel has requested clearer x-rays to be taken of the resident's tooth. He stated that the x-rays taken by Dr. Lopes do not show the entire tooth that needs to be extracted. RAVI called the office of Dr. Lopes ([facility]) stating the issue and she noted that they will call the office of Dr. Montiel. noted that new x-rays need to be taken and for RAVI to send the resident at 7:45AM on Monday to Dr. Lopes's office: [address] [facility]. [address] [place] [address] . Resident can be taken by grace-chair to the location with staff member and portable suction machine to get the x-rays. Resident is then to have his appt with Dr. Montiel via [facility] ([email or web address], [address] [place] [address] ) at 1:00pm with ambulance transportation scheduled for 12:30 PM. operating room manager and charge nurse notified.
--- NOTE | 2016-05-13 12:01 | NUR ---
Informed Lmnued-us-hnj Vilma about dental appt on Monday and the fact that he has to go to Dr. Lopes's office for x-rays first. Vilma agreed with the plan.
[2016-05-13] MEDS: HYDROCODONE/APAP 10/325MG 1 EA TABLET GT SCH ×2 (12:28→21:34)
[2016-05-13] MEDS: Z GUARD REMEDY 4 OZ OINT TP SCH ×4 (13:30→21:35)
[2016-05-13] MEDS: HYDROGEL DRESSING 90 GM TUBE TP SCH ×4 (13:30→21:34)
[2016-05-13] MEDS: GENTAMICIN 0.1% OINT 15 GM TUBE TP SCH ×6 (13:30→21:35)
[2016-05-13] MEDS: HYDROGEN PEROXIDE 480 ML BOTTLE TP SCH ×2 (13:30→21:35)
[2016-05-13] MEDS: CLOTRIMAZOLE/BETAMETASONE DIPROPIONATE 15 GM TUBE TP SCH ×2 (13:30→21:35)
--- NOTE | 2016-05-13 15:35 | NUR ---
INTERDISCIPLINARY PLAN OF CARE CONFERENCE was held today. Rnwksw-un-nvh Vilma was unable to attend. New orders were reviewed. Dr. Ugarte and the interdisciplinary team reviewed the current plan of care in detail. Resident has a dentist appointment scheduled for Monday and certain medications are being held for tooth extraction. He will resume his medications on Monday05/17/2016. He continues to receive wound treatment.
--- NOTE | 2016-05-13 18:45 | NUR ---
Noted with episode of verbally abusive toward staff after patient care provided by executive director of nursing and licensed nurse. Patient was cooperative and with no behaviors noted throughout the shift prior to this time. All procedures explained beforehand to patient. Kept clean and comfortable, turned and repositioned, call light in reach. Respiratory services provided as needed and tolerated well. Premedicated prior to wound care and declined pain during care provided. At this time patient declines pain. Lunch meal refused, offered substitute and still declined. Skin is warm and dry. All medications given as ordered. Moist oral mucosa. F/C in place draining clear urine. Gt in place patent no residual. Colostomy intact. Move bowel times one. All needs met and attended. Senior Corporate Strategy Manager notified.
[2016-05-13 19:23] VITALS: BP 98/67
[2016-05-13] MEDS: ATORVASTATIN CALCIUM 20MG TABLET GT SCH (21:35)
[2016-05-14] MEDS: HYDROCODONE/APAP 10/325MG 1 EA TABLET GT PRN (03:27)
[2016-05-14] MEDS: PROSOURCE / PROSTAT (PYXIS) 30 ML UDC GT SCH (09:38)
[2016-05-14] MEDS: GABAPENTIN 300 MG CAPSULE GT SCH ×3 (09:38→17:38)
[2016-05-14] MEDS: METOPROLOL TARTRATE 25 MG TABLET GT SCH ×2 (09:38→17:38)
[2016-05-14] MEDS: ACIDOPHILUS/BULGARICUS 1 EACH TAB.CHEW GT SCH ×3 (09:38→17:37)
[2016-05-14] MEDS: BACLOFEN (10 MG) 10 MG TABLET GT SCH ×4 (09:38→21:07)
[2016-05-14] MEDS: ESCITALOPRAM OXALATE (10 MG) 10 MG TABLET GT SCH (09:38)
[2016-05-14] MEDS: FAMOTIDINE (20 MG) 20 MG TABLET GT SCH ×2 (09:38→21:09)
[2016-05-14] MEDS: MULTIVIT, IRON, MIN NO. 8, FA 1 TAB GT SCH (09:38)
[2016-05-14] MEDS: POLYETHYLENE GLYCOL 3350 17 GM POWD.PACK GT SCH (09:38)
[2016-05-14] MEDS: CRANBERRY GT SCH (09:38)
[2016-05-14] MEDS: CALCIUM CARBONATE 500 MG TAB.CHEW GT SCH ×3 (09:39→17:38)
[2016-05-14] MEDS: MINERAL OIL/PETROL OINT 396 GM JAR TP SCH ×3 (09:39→17:38)
[2016-05-14] MEDS: ASCORBIC ACID 500 MG TABLET GT SCH ×2 (09:39→17:38)
[2016-05-14] MEDS: ENOXAPARIN SODIUM 40 MG/0.4 ML DISP.SYRIN SQ SCH (09:39)
[2016-05-14] MEDS: CALCITRIOL 0.25 MCG CAPSULE PO SCH (09:39)
[2016-05-14] MEDS: HYDROCODONE/APAP 10/325MG 1 EA TABLET GT SCH ×2 (13:13→21:09)
[2016-05-14] MEDS: HYDROGEN PEROXIDE 480 ML BOTTLE TP SCH ×2 (14:13→21:10)
[2016-05-14] MEDS: Z GUARD REMEDY 4 OZ OINT TP SCH ×4 (14:13→21:10)
[2016-05-14] MEDS: GENTAMICIN 0.1% OINT 15 GM TUBE TP SCH ×6 (14:13→21:10)
[2016-05-14] MEDS: HYDROGEL DRESSING 90 GM TUBE TP SCH ×4 (14:13→21:10)
[2016-05-14] MEDS: CLOTRIMAZOLE/BETAMETASONE DIPROPIONATE 15 GM TUBE TP SCH ×2 (14:13→21:10)
[2016-05-14 19:55] VITALS: BP 100/63
[2016-05-14] MEDS: ATORVASTATIN CALCIUM 20MG TABLET GT SCH (21:10)
[2016-05-14] MEDS: METHOCARBAMOL (750MG) 750 MG TABLET GT PRN (23:53)
[2016-05-15 08:03] VITALS: BP 102/50
[2016-05-15] MEDS: GABAPENTIN 300 MG CAPSULE GT SCH ×3 (09:00→17:04)
[2016-05-15] MEDS: HYDROCODONE/APAP 10/325MG 1 EA TABLET GT SCH ×2 (09:00→20:39)
[2016-05-15] MEDS: CLOTRIMAZOLE/BETAMETASONE DIPROPIONATE 15 GM TUBE TP SCH ×2 (09:00→20:40)
[2016-05-15] MEDS: BACLOFEN (10 MG) 10 MG TABLET GT SCH ×4 (09:00→20:39)
[2016-05-15] MEDS: FAMOTIDINE (20 MG) 20 MG TABLET GT SCH ×2 (09:00→20:39)
[2016-05-15] MEDS: METOPROLOL TARTRATE 25 MG TABLET GT SCH ×2 (09:00→17:04)
[2016-05-15] MEDS: CRANBERRY GT SCH (09:00)
[2016-05-15] MEDS: CALCIUM CARBONATE 500 MG TAB.CHEW GT SCH ×3 (09:00→17:05)
[2016-05-15] MEDS: ACIDOPHILUS/BULGARICUS 1 EACH TAB.CHEW GT SCH ×3 (09:00→17:04)
[2016-05-15] MEDS: MINERAL OIL/PETROL OINT 396 GM JAR TP SCH ×3 (09:00→17:05)
[2016-05-15] MEDS: POLYETHYLENE GLYCOL 3350 17 GM POWD.PACK GT SCH (09:00)
[2016-05-15] MEDS: ESCITALOPRAM OXALATE (10 MG) 10 MG TABLET GT SCH (09:00)
[2016-05-15] MEDS: Z GUARD REMEDY 4 OZ OINT TP SCH ×4 (09:00→20:41)
[2016-05-15] MEDS: PROSOURCE / PROSTAT (PYXIS) 30 ML UDC GT SCH (09:00)
[2016-05-15] MEDS: ASCORBIC ACID 500 MG TABLET GT SCH ×2 (09:00→17:05)
[2016-05-15] MEDS: HYDROGEN PEROXIDE 480 ML BOTTLE TP SCH ×2 (09:00→20:40)
[2016-05-15] MEDS: MULTIVIT, IRON, MIN NO. 8, FA 1 TAB GT SCH (09:00)
[2016-05-15] MEDS: CALCITRIOL 0.25 MCG CAPSULE PO SCH (09:00)
[2016-05-15] MEDS: GENTAMICIN 0.1% OINT 15 GM TUBE TP SCH ×6 (09:00→20:40)
[2016-05-15] MEDS: HYDROGEL DRESSING 90 GM TUBE TP SCH ×4 (09:00→20:40)
[2016-05-15 20:00] VITALS: BP 120/70
[2016-05-15] MEDS: ATORVASTATIN CALCIUM 20MG TABLET GT SCH (22:00)
[2016-05-16 07:45] VITALS: BP 127/96
--- NOTE | 2016-05-16 08:00 | NUR ---
Pt went to Dr. Lopes's office for dental x-ray, accompanied by IVONNE Colby and FERNANDA Anne. He came back in stable condition.
[2016-05-16] MEDS: POLYETHYLENE GLYCOL 3350 17 GM POWD.PACK GT SCH (09:00)
[2016-05-16] MEDS: ASCORBIC ACID 500 MG TABLET GT SCH ×2 (09:00→16:55)
[2016-05-16] MEDS: PROSOURCE / PROSTAT (PYXIS) 30 ML UDC GT SCH (09:00)
[2016-05-16] MEDS: CALCIUM CARBONATE 500 MG TAB.CHEW GT SCH ×3 (09:00→16:55)
[2016-05-16] MEDS: FAMOTIDINE (20 MG) 20 MG TABLET GT SCH ×2 (09:00→20:27)
[2016-05-16] MEDS: CLOPIDOGREL BISULFATE 75 MG TABLET GT SCH (09:00)
[2016-05-16] MEDS: MULTIVIT, IRON, MIN NO. 8, FA 1 TAB GT SCH (09:00)
[2016-05-16] MEDS: CALCITRIOL 0.25 MCG CAPSULE PO SCH (09:00)
[2016-05-16] MEDS: GABAPENTIN 300 MG CAPSULE GT SCH ×3 (09:00→16:55)
[2016-05-16] MEDS: ESCITALOPRAM OXALATE (10 MG) 10 MG TABLET GT SCH (09:58)
[2016-05-16] MEDS: BACLOFEN (10 MG) 10 MG TABLET GT SCH ×4 (09:58→20:26)
[2016-05-16] MEDS: ACIDOPHILUS/BULGARICUS 1 EACH TAB.CHEW GT SCH ×3 (09:58→16:54)
[2016-05-16] MEDS: CRANBERRY GT SCH (09:58)
[2016-05-16] MEDS: METOPROLOL TARTRATE 25 MG TABLET GT SCH ×2 (10:00→16:55)
[2016-05-16] MEDS: HYDROCODONE/APAP 10/325MG 1 EA TABLET GT SCH ×2 (10:01→20:27)
[2016-05-16] MEDS: GENTAMICIN 0.1% OINT 15 GM TUBE TP SCH ×6 (10:30→20:27)
[2016-05-16] MEDS: Z GUARD REMEDY 4 OZ OINT TP SCH ×4 (10:30→20:28)
[2016-05-16] MEDS: HYDROGEN PEROXIDE 480 ML BOTTLE TP SCH ×2 (10:30→20:27)
[2016-05-16] MEDS: MINERAL OIL/PETROL OINT 396 GM JAR TP SCH ×3 (10:30→16:55)
[2016-05-16] MEDS: CLOTRIMAZOLE/BETAMETASONE DIPROPIONATE 15 GM TUBE TP SCH ×2 (10:30→20:27)
[2016-05-16] MEDS: HYDROGEL DRESSING 90 GM TUBE TP SCH ×4 (10:30→20:27)
--- NOTE | 2016-05-16 13:00 | NUR ---
Pt picked up by [facility], IVONNE Mooney went with him. Pt in stable condition.
--- NOTE | 2016-05-16 15:00 | NUR ---
Pt came back from dental appointment. Right upper molar tooth was extracted. Pt came back in stable condition. Received an order to give [place] 5/325 mg Q 6 hours PRN, but pt already on the same order.
[2016-05-16 20:04] VITALS: BP 127/81
[2016-05-16] MEDS: ATORVASTATIN CALCIUM 20MG TABLET GT SCH (21:59)
[2016-05-17 08:00] VITALS: BP 131/66
[2016-05-17] MEDS: BACLOFEN (10 MG) 10 MG TABLET GT SCH ×4 (08:13→20:40)
[2016-05-17] MEDS: ACIDOPHILUS/BULGARICUS 1 EACH TAB.CHEW GT SCH ×3 (08:13→16:41)
[2016-05-17] MEDS: ESCITALOPRAM OXALATE (10 MG) 10 MG TABLET GT SCH (08:13)
[2016-05-17] MEDS: CRANBERRY GT SCH (08:13)
[2016-05-17] MEDS: CLOPIDOGREL BISULFATE 75 MG TABLET GT SCH (08:14)
[2016-05-17] MEDS: METOPROLOL TARTRATE 25 MG TABLET GT SCH ×2 (08:14→16:41)
[2016-05-17] MEDS: CALCIUM CARBONATE 500 MG TAB.CHEW GT SCH ×3 (08:14→16:43)
[2016-05-17] MEDS: CALCITRIOL 0.25 MCG CAPSULE PO SCH (08:14)
[2016-05-17] MEDS: FAMOTIDINE (20 MG) 20 MG TABLET GT SCH ×2 (08:14→20:40)
[2016-05-17] MEDS: MULTIVIT, IRON, MIN NO. 8, FA 1 TAB GT SCH (08:14)
[2016-05-17] MEDS: POLYETHYLENE GLYCOL 3350 17 GM POWD.PACK GT SCH (08:14)
[2016-05-17] MEDS: GABAPENTIN 300 MG CAPSULE GT SCH ×3 (08:14→16:43)
[2016-05-17] MEDS: PROSOURCE / PROSTAT (PYXIS) 30 ML UDC GT SCH (08:14)
[2016-05-17] MEDS: HYDROGEL DRESSING 90 GM TUBE TP SCH ×4 (08:15→20:40)
[2016-05-17] MEDS: MINERAL OIL/PETROL OINT 396 GM JAR TP SCH ×3 (08:15→16:43)
[2016-05-17] MEDS: ASCORBIC ACID 500 MG TABLET GT SCH ×2 (08:15→16:43)
[2016-05-17] MEDS: Z GUARD REMEDY 4 OZ OINT TP SCH ×4 (08:16→20:41)
[2016-05-17] MEDS: HYDROGEN PEROXIDE 480 ML BOTTLE TP SCH ×2 (08:16→20:41)
[2016-05-17] MEDS: GENTAMICIN 0.1% OINT 15 GM TUBE TP SCH ×6 (08:16→20:41)
[2016-05-17] MEDS: ENOXAPARIN SODIUM 40 MG/0.4 ML DISP.SYRIN SQ SCH (08:30)
[2016-05-17] MEDS: CLOTRIMAZOLE/BETAMETASONE DIPROPIONATE 15 GM TUBE TP SCH ×2 (08:32→20:41)
[2016-05-17] MEDS: HYDROCODONE/APAP 10/325MG 1 EA TABLET GT SCH ×3 (09:00→20:40)
[2016-05-17] MEDS ORDERED: ENOXAPARIN SODIUM 40 MG/0.4 ML DISP.SYRIN SQ SCH (09:00)
--- NOTE | 2016-05-17 09:00 | NUR ---
Seen and examined by Dr Ugarte with no new order
--- NOTE | 2016-05-17 09:30 | NUR ---
Seen and examined by Dr. Ugarte to resume Lovenox and Plavix as ordered.
--- NOTE | 2016-05-17 09:35 | NUR ---
RN NOTES RECEIVED PT ON BED , RESPIRATION EVEN AND UNLABORED, CONTINUE TO MONITOR .
--- NOTE | 2016-05-17 12:57 | NUR ---
Spoke to resident per his request. He stated that he was in pain from his tooth extraction. Notified charge nurse who stated that he was already given his [place] pain medication. Also spoke to resident's friend Mili ([phone]) who stated that she wants to get resident a device for him to be able to pick pulling machine tender and respond to telephone calls/messages. Relayed information to manager nursing who stated that she will touch bases with subacute director and CNO. slot operations manager to follow up with RAVI.
[2016-05-17] MEDS: HYDROCODONE/APAP 10/325MG 1 EA TABLET GT PRN (14:08)
--- NOTE | 2016-05-17 18:31 | NUR ---
RN NOTES PT AT REST , WATCHING TV, STABLE , DENIES ANY DISTRESS, NO SIGNIFICANT CHANGES NOTED ON THIS SHIFT .
[2016-05-17] MEDS: ATORVASTATIN CALCIUM 20MG TABLET GT SCH (22:39)
[2016-05-18] MEDS: GABAPENTIN 300 MG CAPSULE GT SCH ×3 (08:54→16:55)
[2016-05-18] MEDS: CRANBERRY GT SCH (08:54)
[2016-05-18] MEDS: BACLOFEN (10 MG) 10 MG TABLET GT SCH ×4 (08:54→20:54)
[2016-05-18] MEDS: ACIDOPHILUS/BULGARICUS 1 EACH TAB.CHEW GT SCH ×3 (08:54→16:55)
[2016-05-18] MEDS: METOPROLOL TARTRATE 25 MG TABLET GT SCH ×2 (08:54→16:55)
[2016-05-18] MEDS: POLYETHYLENE GLYCOL 3350 17 GM POWD.PACK GT SCH (08:54)
[2016-05-18] MEDS: ESCITALOPRAM OXALATE (10 MG) 10 MG TABLET GT SCH (08:54)
[2016-05-18] MEDS: CLOPIDOGREL BISULFATE 75 MG TABLET GT SCH (08:55)
[2016-05-18] MEDS: FAMOTIDINE (20 MG) 20 MG TABLET GT SCH ×2 (08:55→20:55)
[2016-05-18] MEDS: MINERAL OIL/PETROL OINT 396 GM JAR TP SCH ×3 (08:55→16:56)
[2016-05-18] MEDS: HYDROGEL DRESSING 90 GM TUBE TP SCH ×4 (08:55→20:55)
[2016-05-18] MEDS: MULTIVIT, IRON, MIN NO. 8, FA 1 TAB GT SCH (08:55)
[2016-05-18] MEDS: ASCORBIC ACID 500 MG TABLET GT SCH ×2 (08:55→16:55)
[2016-05-18] MEDS: CALCIUM CARBONATE 500 MG TAB.CHEW GT SCH ×3 (08:55→16:55)
[2016-05-18] MEDS: PROSOURCE / PROSTAT (PYXIS) 30 ML UDC GT SCH (08:55)
[2016-05-18] MEDS: CALCITRIOL 0.25 MCG CAPSULE PO SCH (08:55)
[2016-05-18] MEDS: HYDROCODONE/APAP 10/325MG 1 EA TABLET GT SCH ×2 (08:55→20:55)
[2016-05-18] MEDS: ENOXAPARIN SODIUM 40 MG/0.4 ML DISP.SYRIN SQ SCH (08:55)
[2016-05-18] MEDS: CLOTRIMAZOLE/BETAMETASONE DIPROPIONATE 15 GM TUBE TP SCH (08:56)
[2016-05-18] MEDS: Z GUARD REMEDY 4 OZ OINT TP SCH ×4 (08:56→20:56)
[2016-05-18] MEDS: GENTAMICIN 0.1% OINT 15 GM TUBE TP SCH ×6 (08:56→20:55)
[2016-05-18] MEDS: HYDROGEN PEROXIDE 480 ML BOTTLE TP SCH ×2 (08:56→20:55)
[2016-05-18 10:17] VITALS: BP 122/78
[2016-05-18 20:00] VITALS: BP 108/67
[2016-05-18] MEDS: ATORVASTATIN CALCIUM 20MG TABLET GT SCH (21:07)
[2016-05-19 07:45] VITALS: BP 109/72
[2016-05-19] MEDS: CALCIUM CARBONATE 500 MG TAB.CHEW GT SCH ×3 (09:00→16:19)
[2016-05-19] MEDS: POLYETHYLENE GLYCOL 3350 17 GM POWD.PACK GT SCH (09:00)
[2016-05-19] MEDS: GABAPENTIN 300 MG CAPSULE GT SCH ×3 (09:00→16:19)
[2016-05-19] MEDS: PROSOURCE / PROSTAT (PYXIS) 30 ML UDC GT SCH (09:00)
[2016-05-19] MEDS: CLOPIDOGREL BISULFATE 75 MG TABLET GT SCH (09:00)
[2016-05-19] MEDS: ENOXAPARIN SODIUM 40 MG/0.4 ML DISP.SYRIN SQ SCH (09:00)
[2016-05-19] MEDS: MINERAL OIL/PETROL OINT 396 GM JAR TP SCH ×3 (09:00→16:19)
[2016-05-19] MEDS: ACIDOPHILUS/BULGARICUS 1 EACH TAB.CHEW GT SCH ×3 (09:00→16:17)
[2016-05-19] MEDS: METOPROLOL TARTRATE 25 MG TABLET GT SCH ×2 (09:00→16:17)
[2016-05-19] MEDS: FAMOTIDINE (20 MG) 20 MG TABLET GT SCH ×2 (09:00→20:06)
[2016-05-19] MEDS: BACLOFEN (10 MG) 10 MG TABLET GT SCH ×4 (09:00→20:06)
[2016-05-19] MEDS: CALCITRIOL 0.25 MCG CAPSULE PO SCH (09:00)
[2016-05-19] MEDS: ASCORBIC ACID 500 MG TABLET GT SCH ×2 (09:00→16:19)
[2016-05-19] MEDS: MULTIVIT, IRON, MIN NO. 8, FA 1 TAB GT SCH (09:00)
[2016-05-19] MEDS: ESCITALOPRAM OXALATE (10 MG) 10 MG TABLET GT SCH (09:00)
[2016-05-19] MEDS: CRANBERRY GT SCH (09:00)
[2016-05-19] MEDS: HYDROCODONE/APAP 10/325MG 1 EA TABLET GT SCH ×2 (10:00→21:08)
[2016-05-19] MEDS: Z GUARD REMEDY 4 OZ OINT TP SCH ×4 (11:00→21:09)
[2016-05-19] MEDS: HYDROGEL DRESSING 90 GM TUBE TP SCH ×4 (11:00→21:08)
[2016-05-19] MEDS: GENTAMICIN 0.1% OINT 15 GM TUBE TP SCH ×6 (11:00→21:08)
[2016-05-19] MEDS: HYDROGEN PEROXIDE 480 ML BOTTLE TP SCH ×2 (11:00→21:08)
--- NOTE | 2016-05-19 14:20 | NUR ---
RAVI attempted to call resident's friend Mili to set up meeting between skilled nursing case manager and subacute director. She did not answer and SW left a message with details stating that they want to meet with her tomorrow around 2:30pm to talk about the device that she has in mind for the resident. RAVI left a call back number. 03:20PM: SW attempted to contact resident's friend again. No answer
--- NOTE | 2016-05-19 15:00 | NUR ---
Patient noted to be verbally abusive to staff during wound care as manifested by saying harsh remarks/ negative comments about staff. Talked to patient calmly about being understanding and treating staff with respect but patient still continued with his behavior.
[2016-05-19] MEDS: HYDROCODONE/APAP 10/325MG 1 EA TABLET GT PRN (16:21)
[2016-05-19] MEDS: ATORVASTATIN CALCIUM 20MG TABLET GT SCH (21:09)
[2016-05-19 21:19] VITALS: BP 96/59
[2016-05-20] MEDS: MAGNESIUM HYDROXIDE 30 ML UDC GT PRN (05:12)
[2016-05-20] MEDS: METHOCARBAMOL (750MG) 750 MG TABLET GT PRN (05:12)
[2016-05-20] MEDS: METOPROLOL TARTRATE 25 MG TABLET GT SCH ×2 (08:19→16:59)
[2016-05-20] MEDS: ESCITALOPRAM OXALATE (10 MG) 10 MG TABLET GT SCH (08:19)
[2016-05-20] MEDS: CRANBERRY GT SCH (08:19)
[2016-05-20] MEDS: POLYETHYLENE GLYCOL 3350 17 GM POWD.PACK GT SCH (08:19)
[2016-05-20] MEDS: GABAPENTIN 300 MG CAPSULE GT SCH ×3 (08:19→17:00)
[2016-05-20] MEDS: BACLOFEN (10 MG) 10 MG TABLET GT SCH ×4 (08:19→20:34)
[2016-05-20] MEDS: ACIDOPHILUS/BULGARICUS 1 EACH TAB.CHEW GT SCH ×3 (08:19→16:59)
[2016-05-20] MEDS: CALCITRIOL 0.25 MCG CAPSULE PO SCH (08:20)
[2016-05-20] MEDS: CALCIUM CARBONATE 500 MG TAB.CHEW GT SCH ×3 (08:20→16:59)
[2016-05-20] MEDS: MULTIVIT, IRON, MIN NO. 8, FA 1 TAB GT SCH (08:20)
[2016-05-20] MEDS: PROSOURCE / PROSTAT (PYXIS) 30 ML UDC GT SCH (08:20)
[2016-05-20] MEDS: MINERAL OIL/PETROL OINT 396 GM JAR TP SCH ×3 (08:20→17:00)
[2016-05-20] MEDS: CLOPIDOGREL BISULFATE 75 MG TABLET GT SCH (08:20)
[2016-05-20] MEDS: ENOXAPARIN SODIUM 40 MG/0.4 ML DISP.SYRIN SQ SCH (08:20)
[2016-05-20] MEDS: ASCORBIC ACID 500 MG TABLET GT SCH ×2 (08:20→17:00)
[2016-05-20] MEDS: FAMOTIDINE (20 MG) 20 MG TABLET GT SCH ×2 (08:20→20:36)
[2016-05-20] MEDS: HYDROCODONE/APAP 10/325MG 1 EA TABLET GT PRN (08:21)
--- NOTE | 2016-05-20 11:30 | NUR ---
Resident's friend Angie Curtis ([phone]) came by to meet with subacute nursing informatics clinical analyst and JOLIE Tineo. Mili also had two representatives from [employer], who specializes in products for people who have MS, on the telephone. They discussed the piece of equipment that resident would use to help him answer and respond to text messages and telephone calls. Angie stated that device costs a total of $5800 which she would be responsible for ([employer], donors, and andrés would be able to cover the cost). She noted that she will be writing a andrés and will obtain donors to cover the costs of the device. JOLIE Tineo asked questions specific to the device and vendor will be sending him an online link with a video to see what the device looks like. JOLIE will touch bases with nursing informatics clinical analyst to determine if this device is appropriate for the resident to have while he is in the hospital. If approved, Mili would need a physicians order (on doctor's prescription pad) that states the following: Resident's name, diagnosis, and the following wording "The electronic device would allow resident a lot more independence in personal communication." Subacute Web Master to follow up.
[2016-05-20] MEDS: HYDROCODONE/APAP 10/325MG 1 EA TABLET GT SCH ×2 (13:07→20:36)
[2016-05-20] MEDS: GENTAMICIN 0.1% OINT 15 GM TUBE TP SCH ×6 (14:10→20:36)
[2016-05-20] MEDS: Z GUARD REMEDY 4 OZ OINT TP SCH ×4 (14:10→20:36)
[2016-05-20] MEDS: HYDROGEL DRESSING 90 GM TUBE TP SCH ×4 (14:10→20:36)
[2016-05-20] MEDS: HYDROGEN PEROXIDE 480 ML BOTTLE TP SCH ×2 (14:10→20:36)
[2016-05-20 20:10] VITALS: BP 93/63
[2016-05-20] MEDS: ATORVASTATIN CALCIUM 20MG TABLET GT SCH (21:02)
[2016-05-21 07:36] VITALS: BP 110/68
[2016-05-21] MEDS: METOPROLOL TARTRATE 25 MG TABLET GT SCH ×2 (08:32→17:56)
[2016-05-21] MEDS: CRANBERRY GT SCH (08:32)
[2016-05-21] MEDS: POLYETHYLENE GLYCOL 3350 17 GM POWD.PACK GT SCH (08:32)
[2016-05-21] MEDS: GABAPENTIN 300 MG CAPSULE GT SCH ×3 (08:32→17:56)
[2016-05-21] MEDS: BACLOFEN (10 MG) 10 MG TABLET GT SCH ×4 (08:32→20:28)
[2016-05-21] MEDS: ACIDOPHILUS/BULGARICUS 1 EACH TAB.CHEW GT SCH ×3 (08:32→17:56)
[2016-05-21] MEDS: ESCITALOPRAM OXALATE (10 MG) 10 MG TABLET GT SCH (08:32)
[2016-05-21] MEDS: HYDROCODONE/APAP 10/325MG 1 EA TABLET GT SCH ×2 (08:33→20:28)
[2016-05-21] MEDS: CALCITRIOL 0.25 MCG CAPSULE PO SCH (08:34)
[2016-05-21] MEDS: PROSOURCE / PROSTAT (PYXIS) 30 ML UDC GT SCH (08:34)
[2016-05-21] MEDS: CLOPIDOGREL BISULFATE 75 MG TABLET GT SCH (08:34)
[2016-05-21] MEDS: ASCORBIC ACID 500 MG TABLET GT SCH ×2 (08:34→17:56)
[2016-05-21] MEDS: CALCIUM CARBONATE 500 MG TAB.CHEW GT SCH ×3 (08:34→17:56)
[2016-05-21] MEDS: FAMOTIDINE (20 MG) 20 MG TABLET GT SCH ×2 (08:34→20:28)
[2016-05-21] MEDS: MULTIVIT, IRON, MIN NO. 8, FA 1 TAB GT SCH (08:34)
[2016-05-21] MEDS: ENOXAPARIN SODIUM 40 MG/0.4 ML DISP.SYRIN SQ SCH (08:40)
[2016-05-21] MEDS: MINERAL OIL/PETROL OINT 396 GM JAR TP SCH ×3 (08:40→17:56)
[2016-05-21] MEDS: Z GUARD REMEDY 4 OZ OINT TP SCH ×4 (09:35→20:29)
[2016-05-21] MEDS: HYDROGEN PEROXIDE 480 ML BOTTLE TP SCH ×2 (09:35→20:29)
[2016-05-21] MEDS: HYDROGEL DRESSING 90 GM TUBE TP SCH ×4 (09:35→20:28)
[2016-05-21] MEDS: GENTAMICIN 0.1% OINT 15 GM TUBE TP SCH ×6 (09:35→20:29)
[2016-05-21] MEDS: HYDROCODONE/APAP 10/325MG 1 EA TABLET GT PRN (13:17)
[2016-05-21 19:45] VITALS: BP 99/59
[2016-05-21] MEDS: ATORVASTATIN CALCIUM 20MG TABLET GT SCH (21:07)
[2016-05-22] MEDS: MAGNESIUM HYDROXIDE 30 ML UDC GT PRN (05:13)
[2016-05-22] MEDS: METHOCARBAMOL (750MG) 750 MG TABLET GT PRN (05:13)
[2016-05-22 07:40] VITALS: BP 114/82
[2016-05-22] MEDS: ASCORBIC ACID 500 MG TABLET GT SCH ×2 (09:00→17:29)
[2016-05-22] MEDS: CALCITRIOL 0.25 MCG CAPSULE PO SCH (09:00)
[2016-05-22] MEDS: FAMOTIDINE (20 MG) 20 MG TABLET GT SCH ×2 (09:00→21:35)
[2016-05-22] MEDS: MULTIVIT, IRON, MIN NO. 8, FA 1 TAB GT SCH (09:00)
[2016-05-22] MEDS: METOPROLOL TARTRATE 25 MG TABLET GT SCH ×2 (09:00→17:28)
[2016-05-22] MEDS: CRANBERRY GT SCH (09:00)
[2016-05-22] MEDS: CLOPIDOGREL BISULFATE 75 MG TABLET GT SCH (09:00)
[2016-05-22] MEDS: ENOXAPARIN SODIUM 40 MG/0.4 ML DISP.SYRIN SQ SCH (09:00)
[2016-05-22] MEDS: CALCIUM CARBONATE 500 MG TAB.CHEW GT SCH ×3 (09:00→17:29)
[2016-05-22] MEDS: GABAPENTIN 300 MG CAPSULE GT SCH ×3 (09:00→17:29)
[2016-05-22] MEDS: ESCITALOPRAM OXALATE (10 MG) 10 MG TABLET GT SCH (09:00)
[2016-05-22] MEDS: BACLOFEN (10 MG) 10 MG TABLET GT SCH ×4 (09:00→21:35)
[2016-05-22] MEDS: ACIDOPHILUS/BULGARICUS 1 EACH TAB.CHEW GT SCH ×3 (09:00→17:28)
[2016-05-22] MEDS: POLYETHYLENE GLYCOL 3350 17 GM POWD.PACK GT SCH (09:00)
[2016-05-22] MEDS: PROSOURCE / PROSTAT (PYXIS) 30 ML UDC GT SCH (09:00)
[2016-05-22] MEDS: MINERAL OIL/PETROL OINT 396 GM JAR TP SCH ×3 (13:00→17:29)
[2016-05-22] MEDS: HYDROCODONE/APAP 10/325MG 1 EA TABLET GT SCH ×2 (14:00→21:00)
[2016-05-22] MEDS: HYDROGEL DRESSING 90 GM TUBE TP SCH ×4 (14:30→21:35)
[2016-05-22] MEDS: Z GUARD REMEDY 4 OZ OINT TP SCH ×4 (14:30→21:36)
[2016-05-22] MEDS: GENTAMICIN 0.1% OINT 15 GM TUBE TP SCH ×6 (14:30→21:35)
[2016-05-22] MEDS: HYDROGEN PEROXIDE 480 ML BOTTLE TP SCH ×2 (14:30→21:36)
--- NOTE | 2016-05-22 17:20 | NUR ---
Received new order from Dr. Walker to resume Lovenox order noted and carried out.
[2016-05-22 20:00] VITALS: BP 101/62
[2016-05-22] MEDS: ATORVASTATIN CALCIUM 20MG TABLET GT SCH (21:36)
[2016-05-23 08:09] VITALS: BP 122/72
[2016-05-23] MEDS: GENTAMICIN 0.1% OINT 15 GM TUBE TP SCH ×6 (09:00→21:50)
[2016-05-23] MEDS: BACLOFEN (10 MG) 10 MG TABLET GT SCH ×4 (09:41→21:10)
[2016-05-23] MEDS: CRANBERRY GT SCH (09:41)
[2016-05-23] MEDS: PROSOURCE / PROSTAT (PYXIS) 30 ML UDC GT SCH (09:41)
[2016-05-23] MEDS: FAMOTIDINE (20 MG) 20 MG TABLET GT SCH ×2 (09:41→21:11)
[2016-05-23] MEDS: CLOPIDOGREL BISULFATE 75 MG TABLET GT SCH (09:41)
[2016-05-23] MEDS: ACIDOPHILUS/BULGARICUS 1 EACH TAB.CHEW GT SCH ×3 (09:41→17:44)
[2016-05-23] MEDS: ESCITALOPRAM OXALATE (10 MG) 10 MG TABLET GT SCH (09:41)
[2016-05-23] MEDS: METOPROLOL TARTRATE 25 MG TABLET GT SCH ×2 (09:41→17:45)
[2016-05-23] MEDS: POLYETHYLENE GLYCOL 3350 17 GM POWD.PACK GT SCH (09:41)
[2016-05-23] MEDS: GABAPENTIN 300 MG CAPSULE GT SCH ×3 (09:41→17:45)
[2016-05-23] MEDS: CALCITRIOL 0.25 MCG CAPSULE PO SCH (09:42)
[2016-05-23] MEDS: CALCIUM CARBONATE 500 MG TAB.CHEW GT SCH ×3 (09:42→17:45)
[2016-05-23] MEDS: ASCORBIC ACID 500 MG TABLET GT SCH ×2 (09:42→17:45)
[2016-05-23] MEDS: MULTIVIT, IRON, MIN NO. 8, FA 1 TAB GT SCH (09:42)
[2016-05-23] MEDS: ENOXAPARIN SODIUM 40 MG/0.4 ML DISP.SYRIN SQ SCH (09:44)
[2016-05-23] MEDS: HYDROCODONE/APAP 10/325MG 1 EA TABLET GT SCH ×2 (14:00→21:11)
[2016-05-23] MEDS: HYDROGEN PEROXIDE 480 ML BOTTLE TP SCH ×2 (14:30→21:50)
[2016-05-23] MEDS: MINERAL OIL/PETROL OINT 396 GM JAR TP SCH ×2 (14:30→17:45)
[2016-05-23] MEDS: Z GUARD REMEDY 4 OZ OINT TP SCH ×4 (14:30→21:50)
[2016-05-23] MEDS: HYDROGEL DRESSING 90 GM TUBE TP SCH ×4 (14:30→21:50)
[2016-05-23 19:39] VITALS: BP 92/56
[2016-05-23] MEDS: ATORVASTATIN CALCIUM 20MG TABLET GT SCH (21:11)
[2016-05-24 07:58] VITALS: BP 114/70
[2016-05-24] MEDS: CRANBERRY GT SCH (09:00)
[2016-05-24] MEDS: ESCITALOPRAM OXALATE (10 MG) 10 MG TABLET GT SCH (09:00)
[2016-05-24] MEDS: ENOXAPARIN SODIUM 40 MG/0.4 ML DISP.SYRIN SQ SCH (09:00)
[2016-05-24] MEDS: ASCORBIC ACID 500 MG TABLET GT SCH ×2 (09:00→17:56)
[2016-05-24] MEDS: MULTIVIT, IRON, MIN NO. 8, FA 1 TAB GT SCH (09:00)
[2016-05-24] MEDS: CALCIUM CARBONATE 500 MG TAB.CHEW GT SCH ×3 (09:00→17:56)
[2016-05-24] MEDS: FAMOTIDINE (20 MG) 20 MG TABLET GT SCH ×2 (09:00→21:32)
[2016-05-24] MEDS: POLYETHYLENE GLYCOL 3350 17 GM POWD.PACK GT SCH (09:00)
[2016-05-24] MEDS: CALCITRIOL 0.25 MCG CAPSULE PO SCH (09:00)
[2016-05-24] MEDS: CLOPIDOGREL BISULFATE 75 MG TABLET GT SCH (09:00)
[2016-05-24] MEDS: ACIDOPHILUS/BULGARICUS 1 EACH TAB.CHEW GT SCH ×3 (09:00→17:55)
[2016-05-24] MEDS: METOPROLOL TARTRATE 25 MG TABLET GT SCH ×2 (09:00→17:56)
[2016-05-24] MEDS: BACLOFEN (10 MG) 10 MG TABLET GT SCH ×4 (09:00→21:31)
[2016-05-24] MEDS: GABAPENTIN 300 MG CAPSULE GT SCH ×3 (09:00→17:56)
[2016-05-24] MEDS: PROSOURCE / PROSTAT (PYXIS) 30 ML UDC GT SCH (09:00)
--- NOTE | 2016-05-24 10:05 | NUR ---
Seen and examined by Dr Ugarte with no new order
[2016-05-24] MEDS: MINERAL OIL/PETROL OINT 396 GM JAR TP SCH ×3 (13:00→17:57)
[2016-05-24] MEDS: HYDROCODONE/APAP 10/325MG 1 EA TABLET GT SCH ×2 (14:00→21:49)
[2016-05-24] MEDS: GENTAMICIN 0.1% OINT 15 GM TUBE TP SCH ×6 (14:30→21:35)
[2016-05-24] MEDS: HYDROGEL DRESSING 90 GM TUBE TP SCH ×4 (14:30→21:35)
[2016-05-24] MEDS: Z GUARD REMEDY 4 OZ OINT TP SCH ×4 (14:30→21:36)
[2016-05-24] MEDS: HYDROGEN PEROXIDE 480 ML BOTTLE TP SCH ×2 (14:30→21:32)
[2016-05-24 19:55] VITALS: BP 101/60
[2016-05-24] MEDS: ATORVASTATIN CALCIUM 20MG TABLET GT SCH (21:38)
[2016-05-25 08:31] VITALS: BP 122/74
[2016-05-25] MEDS: CRANBERRY GT SCH (08:49)
[2016-05-25] MEDS: ACIDOPHILUS/BULGARICUS 1 EACH TAB.CHEW GT SCH ×3 (08:49→17:13)
[2016-05-25] MEDS: METOPROLOL TARTRATE 25 MG TABLET GT SCH ×2 (08:49→17:13)
[2016-05-25] MEDS: POLYETHYLENE GLYCOL 3350 17 GM POWD.PACK GT SCH (08:49)
[2016-05-25] MEDS: GABAPENTIN 300 MG CAPSULE GT SCH ×3 (08:49→17:13)
[2016-05-25] MEDS: FAMOTIDINE (20 MG) 20 MG TABLET GT SCH ×2 (08:49→21:14)
[2016-05-25] MEDS: ESCITALOPRAM OXALATE (10 MG) 10 MG TABLET GT SCH (08:49)
[2016-05-25] MEDS: BACLOFEN (10 MG) 10 MG TABLET GT SCH ×4 (08:49→21:14)
[2016-05-25] MEDS: CLOPIDOGREL BISULFATE 75 MG TABLET GT SCH (08:50)
[2016-05-25] MEDS: PROSOURCE / PROSTAT (PYXIS) 30 ML UDC GT SCH (08:50)
[2016-05-25] MEDS: CALCITRIOL 0.25 MCG CAPSULE PO SCH (08:50)
[2016-05-25] MEDS: HYDROCODONE/APAP 10/325MG 1 EA TABLET GT SCH ×2 (08:50→21:14)
[2016-05-25] MEDS: CALCIUM CARBONATE 500 MG TAB.CHEW GT SCH ×3 (08:50→17:13)
[2016-05-25] MEDS: MULTIVIT, IRON, MIN NO. 8, FA 1 TAB GT SCH (08:50)
[2016-05-25] MEDS: ASCORBIC ACID 500 MG TABLET GT SCH ×2 (08:50→17:13)
[2016-05-25] MEDS: MINERAL OIL/PETROL OINT 396 GM JAR TP SCH ×3 (09:00→17:13)
[2016-05-25] MEDS: GENTAMICIN 0.1% OINT 15 GM TUBE TP SCH ×2 (09:00→21:46)
[2016-05-25] MEDS: ENOXAPARIN SODIUM 40 MG/0.4 ML DISP.SYRIN SQ SCH (09:00)
[2016-05-25] MEDS: HYDROGEL DRESSING 90 GM TUBE TP SCH ×2 (09:00→21:46)
[2016-05-25] MEDS: HYDROGEN PEROXIDE 480 ML BOTTLE TP SCH ×2 (10:00→21:46)
--- NOTE | 2016-05-25 11:22 | NUR ---
Obtain an order from Dr. Walker for OT eval for assistive technology. Faxed the order to Christine at [facility] fax # along with a copy of patient's Medical and Medicare eligibility for May 2016. Informed Angie Curtis (resident's friend) that information requested has been sent, she stated she will follow-up with Christine in AM.
[2016-05-25 20:00] VITALS: BP 117/66
[2016-05-25] MEDS: ATORVASTATIN CALCIUM 20MG TABLET GT SCH (21:14)
[2016-05-26 07:43] VITALS: BP 114/76
[2016-05-26] MEDS: ACIDOPHILUS/BULGARICUS 1 EACH TAB.CHEW GT SCH ×3 (08:56→16:11)
[2016-05-26] MEDS: GABAPENTIN 300 MG CAPSULE GT SCH ×3 (08:56→16:11)
[2016-05-26] MEDS: CRANBERRY GT SCH (08:56)
[2016-05-26] MEDS: POLYETHYLENE GLYCOL 3350 17 GM POWD.PACK GT SCH (08:56)
[2016-05-26] MEDS: BACLOFEN (10 MG) 10 MG TABLET GT SCH ×4 (08:56→20:21)
[2016-05-26] MEDS: ESCITALOPRAM OXALATE (10 MG) 10 MG TABLET GT SCH (08:56)
[2016-05-26] MEDS: METOPROLOL TARTRATE 25 MG TABLET GT SCH ×2 (08:56→16:11)
[2016-05-26] MEDS: MULTIVIT, IRON, MIN NO. 8, FA 1 TAB GT SCH (08:57)
[2016-05-26] MEDS: ASCORBIC ACID 500 MG TABLET GT SCH ×2 (08:57→16:12)
[2016-05-26] MEDS: PROSOURCE / PROSTAT (PYXIS) 30 ML UDC GT SCH (08:57)
[2016-05-26] MEDS: CALCITRIOL 0.25 MCG CAPSULE PO SCH (08:57)
[2016-05-26] MEDS: HYDROCODONE/APAP 10/325MG 1 EA TABLET GT SCH ×2 (08:57→20:21)
[2016-05-26] MEDS: CALCIUM CARBONATE 500 MG TAB.CHEW GT SCH ×3 (08:57→16:12)
[2016-05-26] MEDS: CLOPIDOGREL BISULFATE 75 MG TABLET GT SCH (08:57)
[2016-05-26] MEDS: FAMOTIDINE (20 MG) 20 MG TABLET GT SCH ×2 (08:57→20:21)
[2016-05-26] MEDS: ENOXAPARIN SODIUM 40 MG/0.4 ML DISP.SYRIN SQ SCH (08:59)
[2016-05-26] MEDS: MINERAL OIL/PETROL OINT 396 GM JAR TP SCH ×3 (09:00→17:38)
[2016-05-26] MEDS: GENTAMICIN 0.1% OINT 15 GM TUBE TP SCH ×4 (09:00→21:24)
[2016-05-26] MEDS: HYDROGEN PEROXIDE 480 ML BOTTLE TP SCH ×2 (09:00→20:21)
[2016-05-26] MEDS: METHOCARBAMOL (750MG) 750 MG TABLET GT PRN (12:11)
--- NOTE | 2016-05-26 16:00 | NUR ---
LATE ENTRY: RT NOTE MONTHLY TRACH CHANGE DONE. PATIENT IS AWAKE AND ALERT. EXPLAINED PROCEDURE TO PATIENT. HE AGREED. I ATTEMPTED TO PULL THE TRACH FROM STOMA PATIENT ATTEMPTED TO TALK AND BEGAN TO USE PROFANE LANGUAGE. I STOPPED AND TOLD PATIENT TO STOP TALKING BECAUSE IT MADE IT DIFFICULT TO CONTINUE WITH PROCEDURE. ONCE PATIENT WAS QUIET HIS TRACH WAS REPLACED. SHILEY 8 XLT DISTAL CUFFED TRACH. SOME REDNESS AND BLEEDING WAS NOTED. TRACH CARE WAS DONE. SUCTIONED AND LAVAGED MODERATE AMOUNT OF CLEAR SECRETIONS AND BRIGHT RED BLOOD. NOTIFIED NURSE(RADHA).
[2016-05-26] MEDS: HYDROCODONE/APAP 10/325MG 1 EA TABLET GT PRN (16:12)
[2016-05-26 20:51] VITALS: BP 119/72
[2016-05-26] MEDS: Z GUARD REMEDY 4 OZ OINT TP SCH ×2 (21:24)
[2016-05-26] MEDS: ATORVASTATIN CALCIUM 20MG TABLET GT SCH (21:24)
--- NOTE | 2016-05-27 00:38 | NUR ---
Noted resident with moderate amt of thick yellow - greenish secretions mixed with old blood clots from trach upon suctioning, lavaged with ns, pt s/p trach change done earlier, margarita by pt with no resp distress episode, also upon doing pt's wound treatments to mid- back and sacral & right buttocks wound ulcer, mild bleeding from sacral and right buttocks wounds noted, tx done as ordered, tolerated by pt notified pipe turner nurse regarding bleeding, will notify md in am. Continue to monitor pt at this time.
--- NOTE | 2016-05-27 02:50 | NUR ---
RT NOTE: PATIENT'S COOL AEROSOL WATER WAS CHANGED. PATIENT SUCTIONED AND LAVAGED TO OBTAIN YELLOW/GREEN SECRETIONS AND OLD DARK BLOOD. NO DISTRESS NOTED AT THIS TIME. WILL CONTINUE TO MONITOR.
[2016-05-27] MEDS: MAGNESIUM HYDROXIDE 30 ML UDC GT PRN (05:14)
--- NOTE | 2016-05-27 05:56 | NUR ---
Suctioned and lavaged pt, mod amt of pale yellow secretions obtained, no more blood clots noted, no resp distress. Continue to monitor.
[2016-05-27 07:41] VITALS: BP 109/75
[2016-05-27] MEDS: HYDROGEN PEROXIDE 480 ML BOTTLE TP SCH ×2 (09:00→20:08)
[2016-05-27] MEDS: MINERAL OIL/PETROL OINT 396 GM JAR TP SCH ×3 (09:00→17:45)
[2016-05-27] MEDS: Z GUARD REMEDY 4 OZ OINT TP SCH ×4 (09:00→20:08)
[2016-05-27] MEDS: GENTAMICIN 0.1% OINT 15 GM TUBE TP SCH ×6 (09:00→20:07)
[2016-05-27] MEDS: BACLOFEN (10 MG) 10 MG TABLET GT SCH ×4 (09:20→20:07)
[2016-05-27] MEDS: ACIDOPHILUS/BULGARICUS 1 EACH TAB.CHEW GT SCH ×3 (09:20→17:44)
[2016-05-27] MEDS: POLYETHYLENE GLYCOL 3350 17 GM POWD.PACK GT SCH (09:20)
[2016-05-27] MEDS: METOPROLOL TARTRATE 25 MG TABLET GT SCH ×2 (09:20→17:44)
[2016-05-27] MEDS: GABAPENTIN 300 MG CAPSULE GT SCH ×3 (09:20→17:44)
[2016-05-27] MEDS: ESCITALOPRAM OXALATE (10 MG) 10 MG TABLET GT SCH (09:20)
[2016-05-27] MEDS: CRANBERRY GT SCH (09:20)
[2016-05-27] MEDS: ENOXAPARIN SODIUM 40 MG/0.4 ML DISP.SYRIN SQ SCH (09:21)
[2016-05-27] MEDS: PROSOURCE / PROSTAT (PYXIS) 30 ML UDC GT SCH (09:21)
[2016-05-27] MEDS: FAMOTIDINE (20 MG) 20 MG TABLET GT SCH ×2 (09:21→20:07)
[2016-05-27] MEDS: MULTIVIT, IRON, MIN NO. 8, FA 1 TAB GT SCH (09:21)
[2016-05-27] MEDS: CALCIUM CARBONATE 500 MG TAB.CHEW GT SCH ×3 (09:21→17:45)
[2016-05-27] MEDS: HYDROCODONE/APAP 10/325MG 1 EA TABLET GT SCH ×2 (09:21→20:07)
[2016-05-27] MEDS: ASCORBIC ACID 500 MG TABLET GT SCH ×2 (09:21→17:45)
[2016-05-27] MEDS: CLOPIDOGREL BISULFATE 75 MG TABLET GT SCH (09:21)
[2016-05-27] MEDS: CALCITRIOL 0.25 MCG CAPSULE PO SCH (09:21)
--- NOTE | 2016-05-27 10:18 | NUR ---
Patient had trach and wound bleeding. Order by MD to hold Lovenox until bleeding stops.
[2016-05-27] MEDS: METHOCARBAMOL (750MG) 750 MG TABLET GT PRN (14:13)
[2016-05-27] MEDS: HYDROCODONE/APAP 10/325MG 1 EA TABLET GT PRN (14:14)
[2016-05-27 21:36] VITALS: BP 98/65
[2016-05-27] MEDS: ATORVASTATIN CALCIUM 20MG TABLET GT SCH (21:52)
[2016-05-28] MEDS: METHOCARBAMOL (750MG) 750 MG TABLET GT PRN (05:15)
[2016-05-28 07:40] VITALS: BP 118/69
[2016-05-28] MEDS: CALCIUM CARBONATE 500 MG TAB.CHEW GT SCH ×3 (08:20→17:42)
[2016-05-28] MEDS: BACLOFEN (10 MG) 10 MG TABLET GT SCH ×4 (08:20→20:14)
[2016-05-28] MEDS: METOPROLOL TARTRATE 25 MG TABLET GT SCH ×2 (08:20→17:42)
[2016-05-28] MEDS: POLYETHYLENE GLYCOL 3350 17 GM POWD.PACK GT SCH (08:20)
[2016-05-28] MEDS: MINERAL OIL/PETROL OINT 396 GM JAR TP SCH ×3 (08:20→17:42)
[2016-05-28] MEDS: ACIDOPHILUS/BULGARICUS 1 EACH TAB.CHEW GT SCH ×3 (08:20→17:41)
[2016-05-28] MEDS: MULTIVIT, IRON, MIN NO. 8, FA 1 TAB GT SCH (08:20)
[2016-05-28] MEDS: ESCITALOPRAM OXALATE (10 MG) 10 MG TABLET GT SCH (08:20)
[2016-05-28] MEDS: PROSOURCE / PROSTAT (PYXIS) 30 ML UDC GT SCH (08:20)
[2016-05-28] MEDS: GABAPENTIN 300 MG CAPSULE GT SCH ×3 (08:20→17:42)
[2016-05-28] MEDS: CLOPIDOGREL BISULFATE 75 MG TABLET GT SCH (08:20)
[2016-05-28] MEDS: CRANBERRY GT SCH (08:20)
[2016-05-28] MEDS: CALCITRIOL 0.25 MCG CAPSULE PO SCH (08:20)
[2016-05-28] MEDS: ASCORBIC ACID 500 MG TABLET GT SCH ×2 (08:20→17:42)
[2016-05-28] MEDS: FAMOTIDINE (20 MG) 20 MG TABLET GT SCH ×2 (08:20→20:14)
[2016-05-28] MEDS: HYDROCODONE/APAP 10/325MG 1 EA TABLET GT PRN (08:21)
[2016-05-28] MEDS: HYDROCODONE/APAP 10/325MG 1 EA TABLET GT SCH ×2 (13:12→20:14)
--- NOTE | 2016-05-28 13:25 | NUR ---
Lovenox still on hold, slight bleeding noted during tracheal suctioning and with wound care. Endorsed to observe for any further bleeding.
[2016-05-28] MEDS: GENTAMICIN 0.1% OINT 15 GM TUBE TP SCH ×6 (14:12→20:15)
[2016-05-28] MEDS: Z GUARD REMEDY 4 OZ OINT TP SCH ×4 (14:12→20:15)
[2016-05-28] MEDS: HYDROGEN PEROXIDE 480 ML BOTTLE TP SCH ×2 (14:12→20:15)
--- NOTE | 2016-05-28 14:59 | NUR ---
Angie visited resident and she is very thankful that [facility] received all the documents they are requesting and in the process of submitting the request for assistive technology to Medicare. According to Angie the approval may take about a couple of weeks but will let the staff know when Katia, OT information technology intern from [facility] will be able to come and evaluate if resident is able to use technological device.
[2016-05-28 19:44] VITALS: BP 98/64
[2016-05-28] MEDS: HYDROGEL DRESSING 90 GM TUBE TP SCH (20:14)
[2016-05-28] MEDS: ATORVASTATIN CALCIUM 20MG TABLET GT SCH (22:14)
--- NOTE | 2016-05-29 04:53 | NUR ---
LOVENOX STILL ON HOLD, PT STILL NOTED WITH SCANT BLEEDING EPISODE UPON WOUND TREATMENT. CONTINUE TO MONITOR AND WILL ENDORSE MONITORING TO AM SHIFT.
[2016-05-29] MEDS: METHOCARBAMOL (750MG) 750 MG TABLET GT PRN (05:15)
[2016-05-29] MEDS: MAGNESIUM HYDROXIDE 30 ML UDC GT PRN (05:15)
[2016-05-29 07:33] VITALS: BP 114/76
[2016-05-29] MEDS: CRANBERRY GT SCH (08:32)
[2016-05-29] MEDS: ACIDOPHILUS/BULGARICUS 1 EACH TAB.CHEW GT SCH ×3 (08:32→17:40)
[2016-05-29] MEDS: ESCITALOPRAM OXALATE (10 MG) 10 MG TABLET GT SCH (08:33)
[2016-05-29] MEDS: BACLOFEN (10 MG) 10 MG TABLET GT SCH ×4 (08:33→21:15)
[2016-05-29] MEDS: METOPROLOL TARTRATE 25 MG TABLET GT SCH ×2 (08:34→17:40)
[2016-05-29] MEDS: CLOPIDOGREL BISULFATE 75 MG TABLET GT SCH (08:34)
[2016-05-29] MEDS: GABAPENTIN 300 MG CAPSULE GT SCH ×3 (08:34→17:40)
[2016-05-29] MEDS: POLYETHYLENE GLYCOL 3350 17 GM POWD.PACK GT SCH (08:34)
[2016-05-29] MEDS: FAMOTIDINE (20 MG) 20 MG TABLET GT SCH ×2 (08:34→21:16)
[2016-05-29] MEDS: CALCIUM CARBONATE 500 MG TAB.CHEW GT SCH ×3 (08:34→17:40)
[2016-05-29] MEDS: MULTIVIT, IRON, MIN NO. 8, FA 1 TAB GT SCH (08:34)
[2016-05-29] MEDS: PROSOURCE / PROSTAT (PYXIS) 30 ML UDC GT SCH (08:34)
[2016-05-29] MEDS: CALCITRIOL 0.25 MCG CAPSULE PO SCH (08:35)
[2016-05-29] MEDS: ASCORBIC ACID 500 MG TABLET GT SCH ×2 (08:35→17:40)
[2016-05-29] MEDS: HYDROCODONE/APAP 10/325MG 1 EA TABLET GT PRN (08:38)
[2016-05-29] MEDS: MINERAL OIL/PETROL OINT 396 GM JAR TP SCH ×3 (13:00→17:40)
[2016-05-29] MEDS: HYDROGEN PEROXIDE 480 ML BOTTLE TP SCH ×2 (15:00→21:47)
[2016-05-29] MEDS: HYDROGEL DRESSING 90 GM TUBE TP SCH ×2 (15:00→21:47)
[2016-05-29] MEDS: GENTAMICIN 0.1% OINT 15 GM TUBE TP SCH ×6 (15:00→21:47)
[2016-05-29] MEDS: HYDROCODONE/APAP 10/325MG 1 EA TABLET GT SCH ×2 (15:00→21:16)
[2016-05-29] MEDS: Z GUARD REMEDY 4 OZ OINT TP SCH ×4 (15:00→21:48)
[2016-05-29 20:00] VITALS: BP 111/68
[2016-05-29] MEDS: ATORVASTATIN CALCIUM 20MG TABLET GT SCH (21:16)
[2016-05-30 08:00] VITALS: BP 132/92
[2016-05-30] MEDS: ACIDOPHILUS/BULGARICUS 1 EACH TAB.CHEW GT SCH ×3 (08:14→17:00)
[2016-05-30] MEDS: CALCIUM CARBONATE 500 MG TAB.CHEW GT SCH ×3 (08:14→17:00)
[2016-05-30] MEDS: FAMOTIDINE (20 MG) 20 MG TABLET GT SCH ×2 (08:14→21:06)
[2016-05-30] MEDS: POLYETHYLENE GLYCOL 3350 17 GM POWD.PACK GT SCH (08:14)
[2016-05-30] MEDS: CLOPIDOGREL BISULFATE 75 MG TABLET GT SCH (08:14)
[2016-05-30] MEDS: BACLOFEN (10 MG) 10 MG TABLET GT SCH ×4 (08:14→21:04)
[2016-05-30] MEDS: ESCITALOPRAM OXALATE (10 MG) 10 MG TABLET GT SCH (08:14)
[2016-05-30] MEDS: CRANBERRY GT SCH (08:14)
[2016-05-30] MEDS: GABAPENTIN 300 MG CAPSULE GT SCH ×3 (08:14→17:00)
[2016-05-30] MEDS: METOPROLOL TARTRATE 25 MG TABLET GT SCH ×2 (08:14→17:00)
[2016-05-30] MEDS: PROSOURCE / PROSTAT (PYXIS) 30 ML UDC GT SCH (08:14)
[2016-05-30] MEDS: MULTIVIT, IRON, MIN NO. 8, FA 1 TAB GT SCH (08:14)
[2016-05-30] MEDS: ASCORBIC ACID 500 MG TABLET GT SCH ×2 (08:15→17:00)
[2016-05-30] MEDS: CALCITRIOL 0.25 MCG CAPSULE PO SCH (08:15)
[2016-05-30] MEDS: HYDROGEL DRESSING 90 GM TUBE TP SCH ×2 (09:00→21:36)
[2016-05-30] MEDS: MINERAL OIL/PETROL OINT 396 GM JAR TP SCH ×3 (13:00→17:00)
[2016-05-30] MEDS: HYDROCODONE/APAP 10/325MG 1 EA TABLET GT SCH ×2 (14:00→21:05)
[2016-05-30] MEDS: GENTAMICIN 0.1% OINT 15 GM TUBE TP SCH ×6 (14:30→21:36)
[2016-05-30] MEDS: HYDROGEN PEROXIDE 480 ML BOTTLE TP SCH ×2 (14:30→21:36)
[2016-05-30] MEDS: Z GUARD REMEDY 4 OZ OINT TP SCH ×4 (14:30→21:36)
[2016-05-30 19:49] VITALS: BP 95/57
[2016-05-30] MEDS: ATORVASTATIN CALCIUM 20MG TABLET GT SCH (21:06)
[2016-05-31 08:00] VITALS: BP 106/60
--- NOTE | 2016-05-31 08:17 | NUR ---
Late entry for 05/30/16 IVONNE Choi reported that pt still has some bleeding from his wounds. Lovenox still on hold.
[2016-05-31] MEDS: CRANBERRY GT SCH (08:27)
[2016-05-31] MEDS: ESCITALOPRAM OXALATE (10 MG) 10 MG TABLET GT SCH (08:28)
[2016-05-31] MEDS: METOPROLOL TARTRATE 25 MG TABLET GT SCH ×2 (08:28→17:08)
[2016-05-31] MEDS: BACLOFEN (10 MG) 10 MG TABLET GT SCH ×4 (08:28→21:21)
[2016-05-31] MEDS: ACIDOPHILUS/BULGARICUS 1 EACH TAB.CHEW GT SCH ×3 (08:28→17:07)
[2016-05-31] MEDS: CALCIUM CARBONATE 500 MG TAB.CHEW GT SCH ×3 (08:29→17:08)
[2016-05-31] MEDS: ASCORBIC ACID 500 MG TABLET GT SCH ×2 (08:29→17:08)
[2016-05-31] MEDS: MULTIVIT, IRON, MIN NO. 8, FA 1 TAB GT SCH (08:29)
[2016-05-31] MEDS: POLYETHYLENE GLYCOL 3350 17 GM POWD.PACK GT SCH (08:29)
[2016-05-31] MEDS: PROSOURCE / PROSTAT (PYXIS) 30 ML UDC GT SCH (08:29)
[2016-05-31] MEDS: CALCITRIOL 0.25 MCG CAPSULE PO SCH (08:29)
[2016-05-31] MEDS: FAMOTIDINE (20 MG) 20 MG TABLET GT SCH ×2 (08:29→21:22)
[2016-05-31] MEDS: CLOPIDOGREL BISULFATE 75 MG TABLET GT SCH (08:29)
[2016-05-31] MEDS: GABAPENTIN 300 MG CAPSULE GT SCH ×3 (08:29→17:08)
[2016-05-31] MEDS: HYDROGEL DRESSING 90 GM TUBE TP SCH ×2 (09:00→21:55)
[2016-05-31] MEDS: HYDROGEN PEROXIDE 480 ML BOTTLE TP SCH ×2 (09:00→21:55)
[2016-05-31] MEDS: MINERAL OIL/PETROL OINT 396 GM JAR TP SCH ×3 (09:00→17:08)
[2016-05-31] MEDS: GENTAMICIN 0.1% OINT 15 GM TUBE TP SCH ×6 (09:00→21:55)
[2016-05-31] MEDS: Z GUARD REMEDY 4 OZ OINT TP SCH ×4 (09:00→21:55)
--- NOTE | 2016-05-31 11:00 | NUR ---
Pt was seen by Dr. Walker. Pt verbalized that [place] is not working for him anymore. He said it works for a short period only. Dr. Walker ordered to increase the frequency of [place] 10/325 mg GT from q 6 hours to q 4 hours. Pt aware of new order.
[2016-05-31] MEDS: HYDROCODONE/APAP 10/325MG 1 EA TABLET GT SCH ×2 (14:00→21:22)
--- NOTE | 2016-05-31 19:09 | NUR ---
Lovenox still on hold and reported to CN that slight bleeding still noted on the sacral wound. patient's yarbrough catheter dislodged and re inserted F/C fr.16x 10 ml. flowing well with a yellow urine.
[2016-05-31 19:48] VITALS: BP 101/62
[2016-05-31] MEDS: ATORVASTATIN CALCIUM 20MG TABLET GT SCH (21:22)
[2016-06-01 08:07] VITALS: BP 106/72
[2016-06-01] MEDS: ESCITALOPRAM OXALATE (10 MG) 10 MG TABLET GT SCH (09:11)
[2016-06-01] MEDS: CRANBERRY GT SCH (09:11)
[2016-06-01] MEDS: BACLOFEN (10 MG) 10 MG TABLET GT SCH ×4 (09:11→21:14)
[2016-06-01] MEDS: ACIDOPHILUS/BULGARICUS 1 EACH TAB.CHEW GT SCH ×3 (09:11→17:50)
[2016-06-01] MEDS: CLOPIDOGREL BISULFATE 75 MG TABLET GT SCH (09:12)
[2016-06-01] MEDS: CALCIUM CARBONATE 500 MG TAB.CHEW GT SCH ×3 (09:12→17:51)
[2016-06-01] MEDS: CALCITRIOL 0.25 MCG CAPSULE PO SCH (09:12)
[2016-06-01] MEDS: HYDROCODONE/APAP 10/325MG 1 EA TABLET GT SCH ×2 (09:12→21:14)
[2016-06-01] MEDS: MULTIVIT, IRON, MIN NO. 8, FA 1 TAB GT SCH (09:12)
[2016-06-01] MEDS: GABAPENTIN 300 MG CAPSULE GT SCH ×3 (09:12→17:50)
[2016-06-01] MEDS: POLYETHYLENE GLYCOL 3350 17 GM POWD.PACK GT SCH (09:12)
[2016-06-01] MEDS: ASCORBIC ACID 500 MG TABLET GT SCH ×2 (09:12→17:51)
[2016-06-01] MEDS: METOPROLOL TARTRATE 25 MG TABLET GT SCH ×2 (09:12→17:50)
[2016-06-01] MEDS: PROSOURCE / PROSTAT (PYXIS) 30 ML UDC GT SCH (09:12)
[2016-06-01] MEDS: FAMOTIDINE (20 MG) 20 MG TABLET GT SCH ×2 (09:12→21:14)
[2016-06-01] MEDS: Z GUARD REMEDY 4 OZ OINT TP SCH ×4 (09:17→21:54)
[2016-06-01] MEDS: HYDROGEL DRESSING 90 GM TUBE TP SCH ×2 (09:17→21:54)
[2016-06-01] MEDS: GENTAMICIN 0.1% OINT 15 GM TUBE TP SCH ×6 (09:17→21:54)
[2016-06-01] MEDS: HYDROGEN PEROXIDE 480 ML BOTTLE TP SCH ×2 (09:17→21:54)
[2016-06-01] MEDS: MINERAL OIL/PETROL OINT 396 GM JAR TP SCH ×3 (09:17→17:51)
[2016-06-01] MEDS: METHOCARBAMOL (750MG) 750 MG TABLET GT PRN (12:22)
[2016-06-01 20:16] VITALS: BP 99/53
[2016-06-01] MEDS: ATORVASTATIN CALCIUM 20MG TABLET GT SCH (21:15)
[2016-06-02 07:40] VITALS: BP 102/64
[2016-06-02] MEDS: GENTAMICIN 0.1% OINT 15 GM TUBE TP SCH ×6 (09:00→21:07)
[2016-06-02] MEDS: Z GUARD REMEDY 4 OZ OINT TP SCH ×4 (09:00→21:07)
[2016-06-02] MEDS: METOPROLOL TARTRATE 25 MG TABLET GT SCH ×2 (09:16→16:45)
[2016-06-02] MEDS: GABAPENTIN 300 MG CAPSULE GT SCH ×3 (09:16→16:46)
[2016-06-02] MEDS: POLYETHYLENE GLYCOL 3350 17 GM POWD.PACK GT SCH (09:16)
[2016-06-02] MEDS: PROSOURCE / PROSTAT (PYXIS) 30 ML UDC GT SCH (09:17)
[2016-06-02] MEDS: FAMOTIDINE (20 MG) 20 MG TABLET GT SCH ×2 (09:17→21:06)
[2016-06-02] MEDS: HYDROCODONE/APAP 10/325MG 1 EA TABLET GT SCH ×2 (09:17→21:06)
[2016-06-02] MEDS: CLOPIDOGREL BISULFATE 75 MG TABLET GT SCH (09:17)
[2016-06-02] MEDS: HYDROGEL DRESSING 90 GM TUBE TP SCH ×2 (09:20→21:06)
[2016-06-02] MEDS: MULTIVIT, IRON, MIN NO. 8, FA 1 TAB GT SCH (09:20)
[2016-06-02] MEDS: CALCITRIOL 0.25 MCG CAPSULE PO SCH (09:20)
[2016-06-02] MEDS: MINERAL OIL/PETROL OINT 396 GM JAR TP SCH ×3 (09:20→16:46)
[2016-06-02] MEDS: CALCIUM CARBONATE 500 MG TAB.CHEW GT SCH ×3 (09:20→16:46)
[2016-06-02] MEDS: ASCORBIC ACID 500 MG TABLET GT SCH ×2 (09:20→16:46)
[2016-06-02] MEDS: ESCITALOPRAM OXALATE (10 MG) 10 MG TABLET GT SCH (09:29)
[2016-06-02] MEDS: CRANBERRY GT SCH (09:29)
[2016-06-02] MEDS: ACIDOPHILUS/BULGARICUS 1 EACH TAB.CHEW GT SCH ×3 (09:29→16:45)
[2016-06-02] MEDS: BACLOFEN (10 MG) 10 MG TABLET GT SCH ×4 (09:30→21:06)
[2016-06-02] MEDS: HYDROGEN PEROXIDE 480 ML BOTTLE TP SCH ×2 (10:00→21:07)
[2016-06-02] MEDS: METHOCARBAMOL (750MG) 750 MG TABLET GT PRN (12:17)
[2016-06-02 20:06] VITALS: BP 110/60
[2016-06-02] MEDS: ATORVASTATIN CALCIUM 20MG TABLET GT SCH (21:07)
[2016-06-03] MEDS: HYDROCODONE/APAP 10/325MG 1 EA TABLET GT PRN ×2 (03:52→16:50)
[2016-06-03 08:03] VITALS: BP 133/80
[2016-06-03] MEDS: CRANBERRY GT SCH (08:29)
[2016-06-03] MEDS: ACIDOPHILUS/BULGARICUS 1 EACH TAB.CHEW GT SCH ×3 (08:29→16:41)
[2016-06-03] MEDS: ESCITALOPRAM OXALATE (10 MG) 10 MG TABLET GT SCH (08:29)
[2016-06-03] MEDS: BACLOFEN (10 MG) 10 MG TABLET GT SCH ×4 (08:29→21:14)
[2016-06-03] MEDS: CALCIUM CARBONATE 500 MG TAB.CHEW GT SCH ×3 (08:30→16:41)
[2016-06-03] MEDS: POLYETHYLENE GLYCOL 3350 17 GM POWD.PACK GT SCH (08:30)
[2016-06-03] MEDS: FAMOTIDINE (20 MG) 20 MG TABLET GT SCH ×2 (08:30→21:15)
[2016-06-03] MEDS: MULTIVIT, IRON, MIN NO. 8, FA 1 TAB GT SCH (08:30)
[2016-06-03] MEDS: GABAPENTIN 300 MG CAPSULE GT SCH ×3 (08:30→16:41)
[2016-06-03] MEDS: PROSOURCE / PROSTAT (PYXIS) 30 ML UDC GT SCH (08:30)
[2016-06-03] MEDS: MINERAL OIL/PETROL OINT 396 GM JAR TP SCH ×3 (08:30→16:41)
[2016-06-03] MEDS: HYDROCODONE/APAP 10/325MG 1 EA TABLET GT SCH ×2 (08:30→21:15)
[2016-06-03] MEDS: ASCORBIC ACID 500 MG TABLET GT SCH ×2 (08:30→16:41)
[2016-06-03] MEDS: METOPROLOL TARTRATE 25 MG TABLET GT SCH ×2 (08:30→16:41)
[2016-06-03] MEDS: CLOPIDOGREL BISULFATE 75 MG TABLET GT SCH (08:30)
[2016-06-03] MEDS: CALCITRIOL 0.25 MCG CAPSULE PO SCH (08:30)
[2016-06-03] MEDS: Z GUARD REMEDY 4 OZ OINT TP SCH ×4 (09:00→21:16)
[2016-06-03] MEDS: HYDROGEL DRESSING 90 GM TUBE TP SCH ×2 (09:00→21:15)
[2016-06-03] MEDS: HYDROGEN PEROXIDE 480 ML BOTTLE TP SCH ×2 (09:00→21:16)
[2016-06-03] MEDS: GENTAMICIN 0.1% OINT 15 GM TUBE TP SCH ×5 (09:00→21:16)
--- NOTE | 2016-06-03 18:45 | NUR ---
Pt's wounds on the mid upper back, sacral area, and right buttock are still noted with some bleeding. Lovenox continues to be on hold.
[2016-06-03 20:07] VITALS: BP 100/59
[2016-06-03] MEDS: ATORVASTATIN CALCIUM 20MG TABLET GT SCH (21:16)
--- NOTE | 2016-06-03 23:00 | NUR ---
ASSISTANT GROCERY STORE MANAGER Notes: Pt's Jackman catheter came out with balloon found deflated. Re-inserted Jackman catheter Fr [id number]. Jackman catheter in place, draining clear yellow urine.
[2016-06-04 08:00] VITALS: BP 110/70
[2016-06-04] MEDS: ESCITALOPRAM OXALATE (10 MG) 10 MG TABLET GT SCH (09:53)
[2016-06-04] MEDS: POLYETHYLENE GLYCOL 3350 17 GM POWD.PACK GT SCH (09:53)
[2016-06-04] MEDS: METOPROLOL TARTRATE 25 MG TABLET GT SCH ×2 (09:53→17:16)
[2016-06-04] MEDS: CRANBERRY GT SCH (09:53)
[2016-06-04] MEDS: ACIDOPHILUS/BULGARICUS 1 EACH TAB.CHEW GT SCH ×3 (09:53→17:15)
[2016-06-04] MEDS: GABAPENTIN 300 MG CAPSULE GT SCH ×3 (09:53→17:16)
[2016-06-04] MEDS: FAMOTIDINE (20 MG) 20 MG TABLET GT SCH ×2 (09:53→21:00)
[2016-06-04] MEDS: HYDROCODONE/APAP 10/325MG 1 EA TABLET GT SCH ×2 (09:53→21:30)
[2016-06-04] MEDS: BACLOFEN (10 MG) 10 MG TABLET GT SCH ×4 (09:53→21:00)
[2016-06-04] MEDS: ASCORBIC ACID 500 MG TABLET GT SCH ×2 (09:54→17:16)
[2016-06-04] MEDS: CLOPIDOGREL BISULFATE 75 MG TABLET GT SCH (09:54)
[2016-06-04] MEDS: CALCIUM CARBONATE 500 MG TAB.CHEW GT SCH ×3 (09:54→17:16)
[2016-06-04] MEDS: PROSOURCE / PROSTAT (PYXIS) 30 ML UDC GT SCH (09:54)
[2016-06-04] MEDS: MULTIVIT, IRON, MIN NO. 8, FA 1 TAB GT SCH (09:54)
[2016-06-04] MEDS: CALCITRIOL 0.25 MCG CAPSULE PO SCH (09:54)
[2016-06-04] MEDS: GENTAMICIN 0.1% OINT 15 GM TUBE TP SCH ×5 (11:00→22:09)
[2016-06-04] MEDS: HYDROGEL DRESSING 90 GM TUBE TP SCH ×2 (11:00→22:09)
[2016-06-04] MEDS: HYDROGEN PEROXIDE 480 ML BOTTLE TP SCH ×2 (11:00→22:10)
[2016-06-04] MEDS: MINERAL OIL/PETROL OINT 396 GM JAR TP SCH ×3 (11:00→17:17)
[2016-06-04] MEDS: Z GUARD REMEDY 4 OZ OINT TP SCH ×4 (11:00→22:10)
[2016-06-04 20:28] VITALS: BP 128/61
[2016-06-04] MEDS: ATORVASTATIN CALCIUM 20MG TABLET GT SCH (22:10)
[2016-06-05 07:52] VITALS: BP 110/78
[2016-06-05] MEDS: BACLOFEN (10 MG) 10 MG TABLET GT SCH ×4 (09:10→21:08)
[2016-06-05] MEDS: ESCITALOPRAM OXALATE (10 MG) 10 MG TABLET GT SCH (09:10)
[2016-06-05] MEDS: CRANBERRY GT SCH (09:10)
[2016-06-05] MEDS: ACIDOPHILUS/BULGARICUS 1 EACH TAB.CHEW GT SCH ×3 (09:10→17:39)
[2016-06-05] MEDS: POLYETHYLENE GLYCOL 3350 17 GM POWD.PACK GT SCH (09:11)
[2016-06-05] MEDS: MULTIVIT, IRON, MIN NO. 8, FA 1 TAB GT SCH (09:11)
[2016-06-05] MEDS: HYDROCODONE/APAP 10/325MG 1 EA TABLET GT SCH ×2 (09:11→21:08)
[2016-06-05] MEDS: FAMOTIDINE (20 MG) 20 MG TABLET GT SCH ×2 (09:11→21:09)
[2016-06-05] MEDS: ASCORBIC ACID 500 MG TABLET GT SCH ×2 (09:11→17:40)
[2016-06-05] MEDS: GABAPENTIN 300 MG CAPSULE GT SCH ×3 (09:11→17:39)
[2016-06-05] MEDS: PROSOURCE / PROSTAT (PYXIS) 30 ML UDC GT SCH (09:11)
[2016-06-05] MEDS: CLOPIDOGREL BISULFATE 75 MG TABLET GT SCH (09:11)
[2016-06-05] MEDS: METOPROLOL TARTRATE 25 MG TABLET GT SCH ×2 (09:11→17:39)
[2016-06-05] MEDS: MINERAL OIL/PETROL OINT 396 GM JAR TP SCH ×3 (09:11→17:40)
[2016-06-05] MEDS: CALCIUM CARBONATE 500 MG TAB.CHEW GT SCH ×3 (09:11→17:39)
[2016-06-05] MEDS: CALCITRIOL 0.25 MCG CAPSULE PO SCH (09:11)
[2016-06-05] MEDS: HYDROGEN PEROXIDE 480 ML BOTTLE TP SCH ×2 (09:12→21:09)
[2016-06-05] MEDS: HYDROGEL DRESSING 90 GM TUBE TP SCH ×2 (09:12→21:09)
[2016-06-05] MEDS: GENTAMICIN 0.1% OINT 15 GM TUBE TP SCH ×6 (09:12→21:09)
[2016-06-05] MEDS: Z GUARD REMEDY 4 OZ OINT TP SCH ×4 (09:12→21:09)
[2016-06-05] MEDS: ATORVASTATIN CALCIUM 20MG TABLET GT SCH (21:09)
[2016-06-06] MEDS: CALCIUM CARBONATE 500 MG TAB.CHEW GT SCH ×3 (08:40→16:53)
[2016-06-06] MEDS: ESCITALOPRAM OXALATE (10 MG) 10 MG TABLET GT SCH (08:40)
[2016-06-06] MEDS: CALCITRIOL 0.25 MCG CAPSULE PO SCH (08:40)
[2016-06-06] MEDS: POLYETHYLENE GLYCOL 3350 17 GM POWD.PACK GT SCH (08:40)
[2016-06-06] MEDS: ACIDOPHILUS/BULGARICUS 1 EACH TAB.CHEW GT SCH ×3 (08:40→16:52)
[2016-06-06] MEDS: CRANBERRY GT SCH (08:40)
[2016-06-06] MEDS: GABAPENTIN 300 MG CAPSULE GT SCH ×3 (08:40→16:53)
[2016-06-06] MEDS: CLOPIDOGREL BISULFATE 75 MG TABLET GT SCH (08:40)
[2016-06-06] MEDS: BACLOFEN (10 MG) 10 MG TABLET GT SCH ×4 (08:40→21:07)
[2016-06-06] MEDS: METOPROLOL TARTRATE 25 MG TABLET GT SCH ×2 (08:40→16:53)
[2016-06-06] MEDS: FAMOTIDINE (20 MG) 20 MG TABLET GT SCH ×2 (08:40→21:07)
[2016-06-06] MEDS: MULTIVIT, IRON, MIN NO. 8, FA 1 TAB GT SCH (08:40)
[2016-06-06] MEDS: PROSOURCE / PROSTAT (PYXIS) 30 ML UDC GT SCH (08:40)
[2016-06-06] MEDS: ASCORBIC ACID 500 MG TABLET GT SCH ×2 (08:40→16:53)
[2016-06-06 08:43] VITALS: BP 136/74
[2016-06-06] MEDS: HYDROCODONE/APAP 10/325MG 1 EA TABLET GT SCH ×2 (11:00→21:07)
[2016-06-06] MEDS: GENTAMICIN 0.1% OINT 15 GM TUBE TP SCH ×6 (11:30→21:07)
[2016-06-06] MEDS: HYDROGEL DRESSING 90 GM TUBE TP SCH ×2 (11:30→21:07)
[2016-06-06] MEDS: Z GUARD REMEDY 4 OZ OINT TP SCH ×4 (11:30→21:08)
[2016-06-06] MEDS: MINERAL OIL/PETROL OINT 396 GM JAR TP SCH ×3 (11:30→16:53)
[2016-06-06] MEDS: HYDROGEN PEROXIDE 480 ML BOTTLE TP SCH ×2 (11:30→21:08)
--- NOTE | 2016-06-06 18:30 | NUR ---
PALAEONTOLOGIST reported noted abrasion to left jack, noted small amount of bleeding, no swelling, no signs of infection noted, no pain noted. While assessing left jack, patient complained of pain to his right cheek, noted open scab with small amount of bleeding, no signs of infection. MD aware with treatment order. Noted and carried out.
[2016-06-06] MEDS: NEOMY SULF/BACITRAC ZN/POLY 15 GM TUBE TP SCH ×2 (21:08)
[2016-06-06] MEDS: ATORVASTATIN CALCIUM 20MG TABLET GT SCH (21:08)
[2016-06-06 21:16] VITALS: BP 138/78
[2016-06-07 08:00] VITALS: BP 122/75
[2016-06-07] MEDS: CRANBERRY GT SCH (08:22)
[2016-06-07] MEDS: BACLOFEN (10 MG) 10 MG TABLET GT SCH ×4 (08:22→21:22)
[2016-06-07] MEDS: ESCITALOPRAM OXALATE (10 MG) 10 MG TABLET GT SCH (08:22)
[2016-06-07] MEDS: ACIDOPHILUS/BULGARICUS 1 EACH TAB.CHEW GT SCH ×3 (08:22→17:03)
[2016-06-07] MEDS: GABAPENTIN 300 MG CAPSULE GT SCH ×3 (08:23→17:04)
[2016-06-07] MEDS: METOPROLOL TARTRATE 25 MG TABLET GT SCH ×2 (08:23→17:04)
[2016-06-07] MEDS: CLOPIDOGREL BISULFATE 75 MG TABLET GT SCH (08:23)
[2016-06-07] MEDS: MULTIVIT, IRON, MIN NO. 8, FA 1 TAB GT SCH (08:23)
[2016-06-07] MEDS: FAMOTIDINE (20 MG) 20 MG TABLET GT SCH ×2 (08:23→21:22)
[2016-06-07] MEDS: CALCIUM CARBONATE 500 MG TAB.CHEW GT SCH ×3 (08:23→17:04)
[2016-06-07] MEDS: PROSOURCE / PROSTAT (PYXIS) 30 ML UDC GT SCH (08:23)
[2016-06-07] MEDS: CALCITRIOL 0.25 MCG CAPSULE PO SCH (08:23)
[2016-06-07] MEDS: POLYETHYLENE GLYCOL 3350 17 GM POWD.PACK GT SCH (08:23)
[2016-06-07] MEDS: ASCORBIC ACID 500 MG TABLET GT SCH ×2 (08:23→17:04)
[2016-06-07] MEDS: HYDROCODONE/APAP 10/325MG 1 EA TABLET GT SCH ×2 (08:23→21:22)
[2016-06-07] MEDS: HYDROGEL DRESSING 90 GM TUBE TP SCH ×2 (09:00→21:26)
[2016-06-07] MEDS: Z GUARD REMEDY 4 OZ OINT TP SCH ×4 (09:00→21:25)
[2016-06-07] MEDS: NEOMY SULF/BACITRAC ZN/POLY 15 GM TUBE TP SCH ×4 (09:00→21:27)
[2016-06-07] MEDS: GENTAMICIN 0.1% OINT 15 GM TUBE TP SCH ×6 (09:00→21:25)
[2016-06-07] MEDS: MINERAL OIL/PETROL OINT 396 GM JAR TP SCH ×3 (09:00→17:05)
[2016-06-07] MEDS: HYDROGEN PEROXIDE 480 ML BOTTLE TP SCH ×2 (09:00→21:26)
--- NOTE | 2016-06-07 13:01 | NUR ---
Called resident's friend Angie Curtis ([phone]) to follow up about device for resident. Left voicemail with contact information.
[2016-06-07] MEDS: ENOXAPARIN SODIUM 40 MG/0.4 ML DISP.SYRIN SQ SCH (18:10)
[2016-06-07 19:55] VITALS: BP 98/71
[2016-06-07] MEDS: ATORVASTATIN CALCIUM 20MG TABLET GT SCH (21:28)
[2016-06-08] MEDS: HYDROCODONE/APAP 10/325MG 1 EA TABLET GT SCH ×2 (04:14→21:30)
[2016-06-08 08:00] VITALS: BP 133/87
[2016-06-08] MEDS: CRANBERRY GT SCH (08:18)
[2016-06-08] MEDS: ACIDOPHILUS/BULGARICUS 1 EACH TAB.CHEW GT SCH ×3 (08:19→16:54)
[2016-06-08] MEDS: ESCITALOPRAM OXALATE (10 MG) 10 MG TABLET GT SCH (08:19)
[2016-06-08] MEDS: METOPROLOL TARTRATE 25 MG TABLET GT SCH ×2 (08:20→17:01)
[2016-06-08] MEDS: BACLOFEN (10 MG) 10 MG TABLET GT SCH ×4 (08:20→21:29)
[2016-06-08] MEDS: GABAPENTIN 300 MG CAPSULE GT SCH ×3 (08:21→16:54)
[2016-06-08] MEDS: FAMOTIDINE (20 MG) 20 MG TABLET GT SCH ×2 (08:21→21:30)
[2016-06-08] MEDS: POLYETHYLENE GLYCOL 3350 17 GM POWD.PACK GT SCH (08:21)
[2016-06-08] MEDS: CLOPIDOGREL BISULFATE 75 MG TABLET GT SCH (08:22)
[2016-06-08] MEDS: PROSOURCE / PROSTAT (PYXIS) 30 ML UDC GT SCH (08:22)
[2016-06-08] MEDS: CALCITRIOL 0.25 MCG CAPSULE PO SCH (08:23)
[2016-06-08] MEDS: ASCORBIC ACID 500 MG TABLET GT SCH ×2 (08:23→16:55)
[2016-06-08] MEDS: CALCIUM CARBONATE 500 MG TAB.CHEW GT SCH ×3 (08:24→16:56)
[2016-06-08] MEDS: MULTIVIT, IRON, MIN NO. 8, FA 1 TAB GT SCH (08:26)
[2016-06-08] MEDS ORDERED: ENOXAPARIN SODIUM 40 MG/0.4 ML DISP.SYRIN SQ SCH (09:00)
[2016-06-08] MEDS: HYDROGEL DRESSING 90 GM TUBE TP SCH ×2 (09:36→21:30)
[2016-06-08] MEDS: MINERAL OIL/PETROL OINT 396 GM JAR TP SCH ×3 (09:36→16:55)
[2016-06-08] MEDS: GENTAMICIN 0.1% OINT 15 GM TUBE TP SCH ×6 (09:36→21:30)
[2016-06-08] MEDS: NEOMY SULF/BACITRAC ZN/POLY 15 GM TUBE TP SCH ×4 (09:37→21:30)
[2016-06-08] MEDS: HYDROGEN PEROXIDE 480 ML BOTTLE TP SCH ×2 (09:37→21:30)
[2016-06-08] MEDS: Z GUARD REMEDY 4 OZ OINT TP SCH ×4 (09:37→21:31)
[2016-06-08] MEDS: HYDROCODONE/APAP 10/325MG 1 EA TABLET GT PRN (13:54)
--- NOTE | 2016-06-08 14:00 | NUR ---
Informed Dr. Ugarte that per shift coordinator, wound still noted to be bleeding a lot during wound treatment, but according to Dr. Ugarte he does not want to hold Lovenox again, but to reinforced dressing as needed. During day shift dressing change, small amount of bleeding present when the dressing was removed but after that the bleeding stopped. Endorsed.
[2016-06-08 19:44] VITALS: BP 114/68
[2016-06-08] MEDS: ENOXAPARIN SODIUM 40 MG/0.4 ML DISP.SYRIN SQ SCH (21:30)
[2016-06-08] MEDS: ATORVASTATIN CALCIUM 20MG TABLET GT SCH (21:31)
--- NOTE | 2016-06-09 06:02 | NUR ---
Still with bleeding on mid back wound during treatment,dressing enforced very well and bleeding stopped,will continue to monitor.
[2016-06-09 08:00] VITALS: BP 128/76
[2016-06-09] MEDS: ACIDOPHILUS/BULGARICUS 1 EACH TAB.CHEW GT SCH ×3 (09:36→17:50)
[2016-06-09] MEDS: ESCITALOPRAM OXALATE (10 MG) 10 MG TABLET GT SCH (09:36)
[2016-06-09] MEDS: CRANBERRY GT SCH (09:36)
[2016-06-09] MEDS: BACLOFEN (10 MG) 10 MG TABLET GT SCH ×4 (09:36→20:47)
[2016-06-09] MEDS: MULTIVIT, IRON, MIN NO. 8, FA 1 TAB GT SCH (09:37)
[2016-06-09] MEDS: PROSOURCE / PROSTAT (PYXIS) 30 ML UDC GT SCH (09:37)
[2016-06-09] MEDS: GABAPENTIN 300 MG CAPSULE GT SCH ×3 (09:37→17:51)
[2016-06-09] MEDS: CLOPIDOGREL BISULFATE 75 MG TABLET GT SCH (09:37)
[2016-06-09] MEDS: FAMOTIDINE (20 MG) 20 MG TABLET GT SCH ×2 (09:37→20:48)
[2016-06-09] MEDS: ASCORBIC ACID 500 MG TABLET GT SCH ×2 (09:37→17:51)
[2016-06-09] MEDS: CALCITRIOL 0.25 MCG CAPSULE PO SCH (09:37)
[2016-06-09] MEDS: POLYETHYLENE GLYCOL 3350 17 GM POWD.PACK GT SCH (09:37)
[2016-06-09] MEDS: MINERAL OIL/PETROL OINT 396 GM JAR TP SCH ×3 (09:37→17:51)
[2016-06-09] MEDS: METOPROLOL TARTRATE 25 MG TABLET GT SCH ×2 (09:37→17:50)
[2016-06-09] MEDS: CALCIUM CARBONATE 500 MG TAB.CHEW GT SCH ×3 (09:37→17:51)
[2016-06-09] MEDS: HYDROCODONE/APAP 10/325MG 1 EA TABLET GT SCH ×2 (09:37→20:48)
[2016-06-09] MEDS: GENTAMICIN 0.1% OINT 15 GM TUBE TP SCH ×6 (10:00→20:49)
[2016-06-09] MEDS: HYDROGEL DRESSING 90 GM TUBE TP SCH ×2 (10:00→20:48)
[2016-06-09] MEDS: Z GUARD REMEDY 4 OZ OINT TP SCH ×4 (10:00→20:49)
[2016-06-09] MEDS: NEOMY SULF/BACITRAC ZN/POLY 15 GM TUBE TP SCH ×4 (10:00→20:49)
[2016-06-09] MEDS: HYDROGEN PEROXIDE 480 ML BOTTLE TP SCH ×2 (10:00→20:49)
[2016-06-09 19:42] VITALS: BP 105/64
[2016-06-09] MEDS: ENOXAPARIN SODIUM 40 MG/0.4 ML DISP.SYRIN SQ SCH (20:48)
[2016-06-09] MEDS: ATORVASTATIN CALCIUM 20MG TABLET GT SCH (22:44)
[2016-06-10] MEDS: HYDROCODONE/APAP 10/325MG 1 EA TABLET GT PRN ×2 (01:59→15:36)
[2016-06-10 08:10] VITALS: BP 105/74
[2016-06-10] MEDS: CRANBERRY GT SCH (09:16)
[2016-06-10] MEDS: ESCITALOPRAM OXALATE (10 MG) 10 MG TABLET GT SCH (09:16)
[2016-06-10] MEDS: ACIDOPHILUS/BULGARICUS 1 EACH TAB.CHEW GT SCH ×3 (09:16→17:41)
[2016-06-10] MEDS: METOPROLOL TARTRATE 25 MG TABLET GT SCH ×2 (09:16→17:42)
[2016-06-10] MEDS: GABAPENTIN 300 MG CAPSULE GT SCH ×3 (09:16→17:42)
[2016-06-10] MEDS: BACLOFEN (10 MG) 10 MG TABLET GT SCH ×4 (09:16→21:19)
[2016-06-10] MEDS: POLYETHYLENE GLYCOL 3350 17 GM POWD.PACK GT SCH (09:16)
[2016-06-10] MEDS: MINERAL OIL/PETROL OINT 396 GM JAR TP SCH ×3 (09:17→17:42)
[2016-06-10] MEDS: HYDROGEL DRESSING 90 GM TUBE TP SCH ×2 (09:17→21:20)
[2016-06-10] MEDS: CALCIUM CARBONATE 500 MG TAB.CHEW GT SCH ×3 (09:17→17:42)
[2016-06-10] MEDS: GENTAMICIN 0.1% OINT 15 GM TUBE TP SCH ×6 (09:17→21:21)
[2016-06-10] MEDS: HYDROGEN PEROXIDE 480 ML BOTTLE TP SCH ×2 (09:17→21:21)
[2016-06-10] MEDS: PROSOURCE / PROSTAT (PYXIS) 30 ML UDC GT SCH (09:17)
[2016-06-10] MEDS: MULTIVIT, IRON, MIN NO. 8, FA 1 TAB GT SCH (09:17)
[2016-06-10] MEDS: ASCORBIC ACID 500 MG TABLET GT SCH ×2 (09:17→17:42)
[2016-06-10] MEDS: FAMOTIDINE (20 MG) 20 MG TABLET GT SCH ×2 (09:17→21:20)
[2016-06-10] MEDS: HYDROCODONE/APAP 10/325MG 1 EA TABLET GT SCH ×2 (09:17→21:20)
[2016-06-10] MEDS: CALCITRIOL 0.25 MCG CAPSULE PO SCH (09:17)
[2016-06-10] MEDS: CLOPIDOGREL BISULFATE 75 MG TABLET GT SCH (09:17)
[2016-06-10] MEDS: Z GUARD REMEDY 4 OZ OINT TP SCH ×4 (09:18→21:21)
[2016-06-10] MEDS: NEOMY SULF/BACITRAC ZN/POLY 15 GM TUBE TP SCH ×4 (09:18→21:21)
--- NOTE | 2016-06-10 11:23 | NUR ---
Called office of Dr. Hollins ([address] [place] [address] ) to follow up on dermatology consult that is needed for the resident. Spoke to Freddie and she stated that Dr. Hollins is out of the office today and will be back on Monday. She stated that she will send him an email and will remind him on Monday to call the SW so that he can inform her of when he can come. SW will follow up.
--- NOTE | 2016-06-10 15:32 | NUR ---
Informed cabin cleaning supervisor Dr. Lovell to see if he can come and check out resident's right ring finger and left thumb on his hand, as he has fungus on both. Awaiting to hear back. SW will follow up.
[2016-06-10 19:52] VITALS: BP 110/69
[2016-06-10] MEDS: ENOXAPARIN SODIUM 40 MG/0.4 ML DISP.SYRIN SQ SCH (21:20)
[2016-06-10] MEDS: ATORVASTATIN CALCIUM 20MG TABLET GT SCH (21:21)
[2016-06-11] MEDS: METHOCARBAMOL (750MG) 750 MG TABLET GT PRN (02:36)
[2016-06-11] MEDS: HYDROCODONE/APAP 10/325MG 1 EA TABLET GT PRN (04:27)
[2016-06-11 08:01] VITALS: BP 135/80
[2016-06-11] MEDS: METOPROLOL TARTRATE 25 MG TABLET GT SCH ×2 (09:40→17:44)
[2016-06-11] MEDS: CRANBERRY GT SCH (09:40)
[2016-06-11] MEDS: ACIDOPHILUS/BULGARICUS 1 EACH TAB.CHEW GT SCH ×3 (09:40→17:43)
[2016-06-11] MEDS: GABAPENTIN 300 MG CAPSULE GT SCH ×3 (09:40→17:44)
[2016-06-11] MEDS: BACLOFEN (10 MG) 10 MG TABLET GT SCH ×4 (09:40→21:44)
[2016-06-11] MEDS: ESCITALOPRAM OXALATE (10 MG) 10 MG TABLET GT SCH (09:40)
[2016-06-11] MEDS: HYDROCODONE/APAP 10/325MG 1 EA TABLET GT SCH ×2 (09:40→21:44)
[2016-06-11] MEDS: FAMOTIDINE (20 MG) 20 MG TABLET GT SCH ×2 (09:40→21:44)
[2016-06-11] MEDS: POLYETHYLENE GLYCOL 3350 17 GM POWD.PACK GT SCH (09:40)
[2016-06-11] MEDS: CALCITRIOL 0.25 MCG CAPSULE PO SCH (09:41)
[2016-06-11] MEDS: MULTIVIT, IRON, MIN NO. 8, FA 1 TAB GT SCH (09:41)
[2016-06-11] MEDS: ASCORBIC ACID 500 MG TABLET GT SCH ×2 (09:41→17:44)
[2016-06-11] MEDS: CLOPIDOGREL BISULFATE 75 MG TABLET GT SCH (09:41)
[2016-06-11] MEDS: PROSOURCE / PROSTAT (PYXIS) 30 ML UDC GT SCH (09:41)
[2016-06-11] MEDS: CALCIUM CARBONATE 500 MG TAB.CHEW GT SCH ×3 (09:41→17:44)
[2016-06-11] MEDS: MINERAL OIL/PETROL OINT 396 GM JAR TP SCH ×3 (10:00→17:44)
[2016-06-11] MEDS: GENTAMICIN 0.1% OINT 15 GM TUBE TP SCH ×6 (10:00→21:45)
[2016-06-11] MEDS: HYDROGEL DRESSING 90 GM TUBE TP SCH ×2 (10:00→21:45)
[2016-06-11] MEDS: NEOMY SULF/BACITRAC ZN/POLY 15 GM TUBE TP SCH ×4 (10:00→21:45)
[2016-06-11] MEDS: HYDROGEN PEROXIDE 480 ML BOTTLE TP SCH ×2 (10:00→21:45)
[2016-06-11] MEDS: Z GUARD REMEDY 4 OZ OINT TP SCH ×4 (10:00→21:45)
--- NOTE | 2016-06-11 13:25 | NUR ---
Seen and examined by Dr. Walker, see resident's fungal nail bed in the R ring finger and L thumb but stated that there is really nothing that can be done with it. Dr. aWlker explained to resident that topical cream is ineffective and oral medication is harmful in the liver. Will explore the antifungal nail botswanan if available in the pharmacy and if covered by patient's insurance. Spoke with Asher from [facility] pharmacy, according to him antifungal nail botswanan is not available in the pharmacy and therapy is up to 48 weeks. Will follow up with color maker on Monday to check affected nails.
[2016-06-11] MEDS: MAGNESIUM HYDROXIDE 30 ML UDC GT PRN (18:34)
[2016-06-11 19:36] VITALS: BP 111/72
[2016-06-11] MEDS: ENOXAPARIN SODIUM 40 MG/0.4 ML DISP.SYRIN SQ SCH (21:45)
[2016-06-11] MEDS: ATORVASTATIN CALCIUM 20MG TABLET GT SCH (21:45)
[2016-06-12] MEDS: METHOCARBAMOL (750MG) 750 MG TABLET GT PRN (02:08)
[2016-06-12] MEDS: HYDROCODONE/APAP 10/325MG 1 EA TABLET GT PRN ×2 (03:34→17:31)
[2016-06-12 08:23] VITALS: BP 111/73
[2016-06-12] MEDS: ASCORBIC ACID 500 MG TABLET GT SCH ×2 (08:48→16:52)
[2016-06-12] MEDS: CRANBERRY GT SCH (08:48)
[2016-06-12] MEDS: CALCIUM CARBONATE 500 MG TAB.CHEW GT SCH ×3 (08:48→16:52)
[2016-06-12] MEDS: METOPROLOL TARTRATE 25 MG TABLET GT SCH ×2 (08:48→16:52)
[2016-06-12] MEDS: MULTIVIT, IRON, MIN NO. 8, FA 1 TAB GT SCH (08:48)
[2016-06-12] MEDS: ACIDOPHILUS/BULGARICUS 1 EACH TAB.CHEW GT SCH ×3 (08:48→16:51)
[2016-06-12] MEDS: FAMOTIDINE (20 MG) 20 MG TABLET GT SCH ×2 (08:48→21:11)
[2016-06-12] MEDS: CALCITRIOL 0.25 MCG CAPSULE PO SCH (08:48)
[2016-06-12] MEDS: ESCITALOPRAM OXALATE (10 MG) 10 MG TABLET GT SCH (08:48)
[2016-06-12] MEDS: GABAPENTIN 300 MG CAPSULE GT SCH ×3 (08:48→16:52)
[2016-06-12] MEDS: CLOPIDOGREL BISULFATE 75 MG TABLET GT SCH (08:48)
[2016-06-12] MEDS: HYDROCODONE/APAP 10/325MG 1 EA TABLET GT SCH ×2 (08:48→21:11)
[2016-06-12] MEDS: POLYETHYLENE GLYCOL 3350 17 GM POWD.PACK GT SCH (08:48)
[2016-06-12] MEDS: BACLOFEN (10 MG) 10 MG TABLET GT SCH ×4 (08:48→21:11)
[2016-06-12] MEDS: PROSOURCE / PROSTAT (PYXIS) 30 ML UDC GT SCH (08:48)
[2016-06-12] MEDS: HYDROGEL DRESSING 90 GM TUBE TP SCH ×2 (08:49→21:11)
[2016-06-12] MEDS: Z GUARD REMEDY 4 OZ OINT TP SCH ×4 (08:49→21:12)
[2016-06-12] MEDS: HYDROGEN PEROXIDE 480 ML BOTTLE TP SCH ×2 (08:49→21:12)
[2016-06-12] MEDS: GENTAMICIN 0.1% OINT 15 GM TUBE TP SCH ×6 (08:49→21:12)
[2016-06-12] MEDS: MINERAL OIL/PETROL OINT 396 GM JAR TP SCH ×3 (08:49→16:52)
[2016-06-12] MEDS: NEOMY SULF/BACITRAC ZN/POLY 15 GM TUBE TP SCH ×4 (08:49→21:12)
[2016-06-12] MEDS: ENOXAPARIN SODIUM 40 MG/0.4 ML DISP.SYRIN SQ SCH (21:11)
[2016-06-12] MEDS: ATORVASTATIN CALCIUM 20MG TABLET GT SCH (21:12)
[2016-06-13 08:31] VITALS: BP 99/47
[2016-06-13] MEDS: MINERAL OIL/PETROL OINT 396 GM JAR TP SCH ×3 (09:00→17:00)
[2016-06-13] MEDS: CRANBERRY GT SCH (09:20)
[2016-06-13] MEDS: ESCITALOPRAM OXALATE (10 MG) 10 MG TABLET GT SCH (09:20)
[2016-06-13] MEDS: ACIDOPHILUS/BULGARICUS 1 EACH TAB.CHEW GT SCH ×3 (09:20→17:00)
[2016-06-13] MEDS: BACLOFEN (10 MG) 10 MG TABLET GT SCH ×4 (09:21→21:23)
[2016-06-13] MEDS: POLYETHYLENE GLYCOL 3350 17 GM POWD.PACK GT SCH (09:21)
[2016-06-13] MEDS: PROSOURCE / PROSTAT (PYXIS) 30 ML UDC GT SCH (09:21)
[2016-06-13] MEDS: CLOPIDOGREL BISULFATE 75 MG TABLET GT SCH (09:21)
[2016-06-13] MEDS: GABAPENTIN 300 MG CAPSULE GT SCH ×3 (09:21→17:00)
[2016-06-13] MEDS: FAMOTIDINE (20 MG) 20 MG TABLET GT SCH ×2 (09:21→21:23)
[2016-06-13] MEDS: CALCIUM CARBONATE 500 MG TAB.CHEW GT SCH ×3 (09:21→17:00)
[2016-06-13] MEDS: ASCORBIC ACID 500 MG TABLET GT SCH ×2 (09:21→17:00)
[2016-06-13] MEDS: CALCITRIOL 0.25 MCG CAPSULE PO SCH (09:21)
[2016-06-13] MEDS: MULTIVIT, IRON, MIN NO. 8, FA 1 TAB GT SCH (09:21)
[2016-06-13] MEDS: METOPROLOL TARTRATE 25 MG TABLET GT SCH ×2 (09:21→17:00)
--- NOTE | 2016-06-13 11:15 | NUR ---
Called office of Dr. Hollins to follow up on radio producer consult. Carmencita (legal secretary) stated she will check with Dr. Hollins. RAVI informed her that it has been some time since referrals were sent and would appreciate it if he can come today or tomorrow. Carmencita noted that she will check with him and will contact RAVI. RAVI will follow up.
--- NOTE | 2016-06-13 11:24 | NUR ---
Spoke to Britney at the wound center ([phone]). Notified her that resident has fungus on his right ring finger and left thumb on his hand. She stated that Dr. Conroy can come and see the patient today. Informed charge nurse.
--- NOTE | 2016-06-13 11:50 | NUR ---
Resident was seen by Dr. Rome TERRAZAS, as resident reported that something in his mouth was poking him when he put his tongue over it. Dr. Peter notified SW that he did not see anything there and resident was informed.
[2016-06-13] MEDS: HYDROCODONE/APAP 10/325MG 1 EA TABLET GT SCH ×2 (12:00→21:23)
--- NOTE | 2016-06-13 12:24 | NUR ---
Called office of Dr. Hollins to cancel dermatology consult, as Dr. Conroy stated that he is able to see the resident. Charge nurse noted that resident no longer in need of dermatology consult and SW called the office of Dr. Hollins to cancel. Spoke to paralegal secretary Rosa Maria who stated that she will notify Dr. Hollins that consult is no longer needed.
[2016-06-13] MEDS: HYDROGEL DRESSING 90 GM TUBE TP SCH ×2 (13:30→21:23)
[2016-06-13] MEDS: Z GUARD REMEDY 4 OZ OINT TP SCH ×4 (13:30→21:24)
[2016-06-13] MEDS: HYDROGEN PEROXIDE 480 ML BOTTLE TP SCH ×2 (13:30→21:24)
[2016-06-13] MEDS: NEOMY SULF/BACITRAC ZN/POLY 15 GM TUBE TP SCH ×2 (13:30)
[2016-06-13] MEDS: GENTAMICIN 0.1% OINT 15 GM TUBE TP SCH ×6 (13:30→21:24)
--- NOTE | 2016-06-13 14:00 | NUR ---
Dr. Diaz came to do excision with biopsy to right face mass, consent obtained from patients' sister Vilma. Patient tolerated procedure well. Specimen sent to pathology.
[2016-06-13] MEDS ORDERED: LIDOCAINE 1%-EPI 1:100,000 20 ML VIAL TP ONE (14:30)
[2016-06-13 20:06] VITALS: BP 111/68
[2016-06-13] MEDS: ENOXAPARIN SODIUM 40 MG/0.4 ML DISP.SYRIN SQ SCH (21:23)
[2016-06-13] MEDS: ATORVASTATIN CALCIUM 20MG TABLET GT SCH (21:24)
--- NOTE | 2016-06-14 07:50 | NUR ---
Received a call from resident's friend Mili who stated that an OT from [facility] was coming on 07/01/2016 at 1pm in order to evaluate resident (according to Angie, OT is a specialist in technology) and can identify which parts of the device resident is able to use. Per Angie, resident will remain in [facility] subacute but OT from [facility] is a specialist and can come assess for the client. Angie stated that she will keep SW posted if there are any developments.
[2016-06-14 08:02] VITALS: BP 119/61
[2016-06-14 08:05] VITALS: BP 125/61
[2016-06-14] MEDS: BACLOFEN (10 MG) 10 MG TABLET GT SCH ×4 (09:58→21:04)
[2016-06-14] MEDS: ESCITALOPRAM OXALATE (10 MG) 10 MG TABLET GT SCH (09:58)
[2016-06-14] MEDS: ACIDOPHILUS/BULGARICUS 1 EACH TAB.CHEW GT SCH ×3 (09:58→17:45)
[2016-06-14] MEDS: CRANBERRY GT SCH (09:58)
[2016-06-14] MEDS: CALCITRIOL 0.25 MCG CAPSULE PO SCH (09:59)
[2016-06-14] MEDS: FAMOTIDINE (20 MG) 20 MG TABLET GT SCH ×2 (09:59→21:04)
[2016-06-14] MEDS: METOPROLOL TARTRATE 25 MG TABLET GT SCH ×2 (09:59→17:45)
[2016-06-14] MEDS: GABAPENTIN 300 MG CAPSULE GT SCH ×3 (09:59→17:45)
[2016-06-14] MEDS: POLYETHYLENE GLYCOL 3350 17 GM POWD.PACK GT SCH (09:59)
[2016-06-14] MEDS: MULTIVIT, IRON, MIN NO. 8, FA 1 TAB GT SCH (09:59)
[2016-06-14] MEDS: HYDROCODONE/APAP 10/325MG 1 EA TABLET GT SCH ×2 (09:59→21:04)
[2016-06-14] MEDS: ASCORBIC ACID 500 MG TABLET GT SCH ×2 (09:59→17:45)
[2016-06-14] MEDS: CALCIUM CARBONATE 500 MG TAB.CHEW GT SCH ×3 (09:59→17:45)
[2016-06-14] MEDS: CLOPIDOGREL BISULFATE 75 MG TABLET GT SCH (09:59)
[2016-06-14] MEDS: PROSOURCE / PROSTAT (PYXIS) 30 ML UDC GT SCH (09:59)
[2016-06-14] MEDS: MINERAL OIL/PETROL OINT 396 GM JAR TP SCH ×3 (11:00→17:46)
[2016-06-14] MEDS: Z GUARD REMEDY 4 OZ OINT TP SCH ×4 (11:00→21:05)
[2016-06-14] MEDS: HYDROGEL DRESSING 90 GM TUBE TP SCH ×2 (11:00→21:04)
[2016-06-14] MEDS: HYDROGEN PEROXIDE 480 ML BOTTLE TP SCH ×2 (11:00→21:05)
[2016-06-14] MEDS: GENTAMICIN 0.1% OINT 15 GM TUBE TP SCH ×6 (11:00→21:05)
[2016-06-14] MEDS: ENOXAPARIN SODIUM 40 MG/0.4 ML DISP.SYRIN SQ SCH (21:04)
[2016-06-14] MEDS: ATORVASTATIN CALCIUM 20MG TABLET GT SCH (21:05)
[2016-06-15 07:48] VITALS: BP 132/71
[2016-06-15] MEDS: HYDROCODONE/APAP 10/325MG 1 EA TABLET GT SCH ×2 (09:32→21:48)
[2016-06-15] MEDS: ACIDOPHILUS/BULGARICUS 1 EACH TAB.CHEW GT SCH ×3 (09:36→17:00)
[2016-06-15] MEDS: CRANBERRY GT SCH (09:36)
[2016-06-15] MEDS: ESCITALOPRAM OXALATE (10 MG) 10 MG TABLET GT SCH (09:37)
[2016-06-15] MEDS: BACLOFEN (10 MG) 10 MG TABLET GT SCH ×4 (09:37→20:59)
[2016-06-15] MEDS: GABAPENTIN 300 MG CAPSULE GT SCH (09:38)
[2016-06-15] MEDS: METOPROLOL TARTRATE 25 MG TABLET GT SCH ×2 (09:38→17:00)
[2016-06-15] MEDS: POLYETHYLENE GLYCOL 3350 17 GM POWD.PACK GT SCH (09:38)
[2016-06-15] MEDS: FAMOTIDINE (20 MG) 20 MG TABLET GT SCH ×2 (09:40→20:59)
[2016-06-15] MEDS: CLOPIDOGREL BISULFATE 75 MG TABLET GT SCH (09:40)
[2016-06-15] MEDS: CALCIUM CARBONATE 500 MG TAB.CHEW GT SCH ×3 (09:41→17:00)
[2016-06-15] MEDS: PROSOURCE / PROSTAT (PYXIS) 30 ML UDC GT SCH (09:41)
[2016-06-15] MEDS: MULTIVIT, IRON, MIN NO. 8, FA 1 TAB GT SCH (09:41)
[2016-06-15] MEDS: ASCORBIC ACID 500 MG TABLET GT SCH ×2 (09:42→17:00)
[2016-06-15] MEDS: CALCITRIOL 0.25 MCG CAPSULE PO SCH (09:42)
[2016-06-15] MEDS: MINERAL OIL/PETROL OINT 396 GM JAR TP SCH ×3 (10:30→17:00)
[2016-06-15] MEDS: HYDROGEN PEROXIDE 480 ML BOTTLE TP SCH ×2 (10:35→22:00)
[2016-06-15] MEDS: Z GUARD REMEDY 4 OZ OINT TP SCH ×4 (10:35→22:00)
[2016-06-15] MEDS: HYDROGEL DRESSING 90 GM TUBE TP SCH ×2 (10:35→22:00)
[2016-06-15] MEDS: GENTAMICIN 0.1% OINT 15 GM TUBE TP SCH ×6 (10:35→22:00)
[2016-06-15] MEDS: GABAPENTIN 600 MG TABLET GT SCH ×2 (13:12→17:00)
[2016-06-15] MEDS: HYDROCODONE/APAP 10/325MG 1 EA TABLET GT PRN (18:07)
[2016-06-15 20:00] VITALS: BP 102/65
[2016-06-15] MEDS: ENOXAPARIN SODIUM 40 MG/0.4 ML DISP.SYRIN SQ SCH (20:59)
[2016-06-15] MEDS: ATORVASTATIN CALCIUM 20MG TABLET GT SCH (21:23)
[2016-06-16] MEDS: HYDROCODONE/APAP 10/325MG 1 EA TABLET GT PRN (04:19)
[2016-06-16 08:00] VITALS: BP 100/58
[2016-06-16] MEDS: METOPROLOL TARTRATE 25 MG TABLET GT SCH ×2 (09:54→17:08)
[2016-06-16] MEDS: CRANBERRY GT SCH (09:54)
[2016-06-16] MEDS: ACIDOPHILUS/BULGARICUS 1 EACH TAB.CHEW GT SCH ×3 (09:54→17:07)
[2016-06-16] MEDS: ESCITALOPRAM OXALATE (10 MG) 10 MG TABLET GT SCH (09:54)
[2016-06-16] MEDS: BACLOFEN (10 MG) 10 MG TABLET GT SCH ×4 (09:54→21:25)
[2016-06-16] MEDS: MULTIVIT, IRON, MIN NO. 8, FA 1 TAB GT SCH (09:55)
[2016-06-16] MEDS: CLOPIDOGREL BISULFATE 75 MG TABLET GT SCH (09:55)
[2016-06-16] MEDS: PROSOURCE / PROSTAT (PYXIS) 30 ML UDC GT SCH (09:55)
[2016-06-16] MEDS: CALCIUM CARBONATE 500 MG TAB.CHEW GT SCH ×3 (09:55→17:08)
[2016-06-16] MEDS: FAMOTIDINE (20 MG) 20 MG TABLET GT SCH ×2 (09:55→21:26)
[2016-06-16] MEDS: POLYETHYLENE GLYCOL 3350 17 GM POWD.PACK GT SCH (09:55)
[2016-06-16] MEDS: CALCITRIOL 0.25 MCG CAPSULE PO SCH (09:55)
[2016-06-16] MEDS: HYDROCODONE/APAP 10/325MG 1 EA TABLET GT SCH ×2 (09:55→21:26)
[2016-06-16] MEDS: ASCORBIC ACID 500 MG TABLET GT SCH ×2 (09:55→17:08)
[2016-06-16] MEDS: GABAPENTIN 600 MG TABLET GT SCH ×3 (09:55→17:08)
[2016-06-16] MEDS: GENTAMICIN 0.1% OINT 15 GM TUBE TP SCH ×6 (11:00→21:27)
[2016-06-16] MEDS: Z GUARD REMEDY 4 OZ OINT TP SCH ×4 (11:00→21:27)
[2016-06-16] MEDS: HYDROGEN PEROXIDE 480 ML BOTTLE TP SCH ×2 (11:00→21:27)
[2016-06-16] MEDS: HYDROGEL DRESSING 90 GM TUBE TP SCH ×2 (11:00→21:27)
[2016-06-16] MEDS: MINERAL OIL/PETROL OINT 396 GM JAR TP SCH ×3 (11:00→17:08)
--- NOTE | 2016-06-16 14:30 | NUR ---
Seen by Dr Conroy per he will do another removal on pt facial mass in a week.
--- NOTE | 2016-06-16 15:00 | NUR ---
Seen by Peggy Hoffman NP with no new order.
[2016-06-16 19:26] VITALS: BP 114/62
[2016-06-16] MEDS: ENOXAPARIN SODIUM 40 MG/0.4 ML DISP.SYRIN SQ SCH (21:26)
[2016-06-16] MEDS: ATORVASTATIN CALCIUM 20MG TABLET GT SCH (21:27)
[2016-06-17] MEDS: HYDROCODONE/APAP 10/325MG 1 EA TABLET GT PRN (03:52)
--- NOTE | 2016-06-17 06:30 | NUR ---
Pt noted with skin redness/rashes @ back area,obtained treatment of Lotrisone q shift x 14 days ,will continue to monitor.
[2016-06-17 07:55] VITALS: BP 119/77
[2016-06-17] MEDS: ACIDOPHILUS/BULGARICUS 1 EACH TAB.CHEW GT SCH ×3 (09:03→17:00)
[2016-06-17] MEDS: ESCITALOPRAM OXALATE (10 MG) 10 MG TABLET GT SCH (09:03)
[2016-06-17] MEDS: CRANBERRY GT SCH (09:03)
[2016-06-17] MEDS: BACLOFEN (10 MG) 10 MG TABLET GT SCH ×4 (09:03→21:29)
[2016-06-17] MEDS: METOPROLOL TARTRATE 25 MG TABLET GT SCH ×2 (09:03→17:00)
[2016-06-17] MEDS: CALCIUM CARBONATE 500 MG TAB.CHEW GT SCH ×3 (09:04→17:00)
[2016-06-17] MEDS: CALCITRIOL 0.25 MCG CAPSULE PO SCH (09:04)
[2016-06-17] MEDS: ASCORBIC ACID 500 MG TABLET GT SCH ×2 (09:04→17:00)
[2016-06-17] MEDS: HYDROCODONE/APAP 10/325MG 1 EA TABLET GT SCH ×2 (09:04→21:30)
[2016-06-17] MEDS: FAMOTIDINE (20 MG) 20 MG TABLET GT SCH ×2 (09:04→21:30)
[2016-06-17] MEDS: CLOPIDOGREL BISULFATE 75 MG TABLET GT SCH (09:04)
[2016-06-17] MEDS: POLYETHYLENE GLYCOL 3350 17 GM POWD.PACK GT SCH (09:04)
[2016-06-17] MEDS: MINERAL OIL/PETROL OINT 396 GM JAR TP SCH ×3 (09:04→17:00)
[2016-06-17] MEDS: GABAPENTIN 600 MG TABLET GT SCH ×3 (09:04→17:00)
[2016-06-17] MEDS: PROSOURCE / PROSTAT (PYXIS) 30 ML UDC GT SCH (09:04)
[2016-06-17] MEDS: MULTIVIT, IRON, MIN NO. 8, FA 1 TAB GT SCH (09:04)
--- NOTE | 2016-06-17 09:16 | NUR ---
WOUND CARE CONSULT: PT REFUSING SKIN ASSESSMENT AT THIS TIME. WILL SEE PT PT CONDITION PERMITS.
[2016-06-17] MEDS: HYDROGEL DRESSING 90 GM TUBE TP SCH ×2 (10:10→21:30)
[2016-06-17] MEDS: HYDROGEN PEROXIDE 480 ML BOTTLE TP SCH ×2 (10:10→21:31)
[2016-06-17] MEDS: GENTAMICIN 0.1% OINT 15 GM TUBE TP SCH ×6 (10:10→21:31)
[2016-06-17] MEDS: Z GUARD REMEDY 4 OZ OINT TP SCH ×4 (10:10→21:31)
--- NOTE | 2016-06-17 14:00 | NUR ---
IDT meeting held, attended by resident's sister in-law, reviewed plan of care. new orders, medications and treatment. Result of facial biopsy reviewed by MD Ugarte to sister in law in the meeting. Possible excision will be done next week. Pharmacy recommended to dc Cepacol due to non usage. Dr. Ugarte in agreement. Order carried out.
[2016-06-17 19:24] VITALS: BP 99/59
[2016-06-17] MEDS: ENOXAPARIN SODIUM 40 MG/0.4 ML DISP.SYRIN SQ SCH (21:30)
[2016-06-17] MEDS: CLOTRIMAZOLE/BETAMETASONE DIPROPIONATE 15 GM TUBE TP SCH (21:31)
[2016-06-17] MEDS: ATORVASTATIN CALCIUM 20MG TABLET GT SCH (21:32)
[2016-06-18 08:00] VITALS: BP 102/60
[2016-06-18] MEDS: CRANBERRY GT SCH (09:55)
[2016-06-18] MEDS: GABAPENTIN 600 MG TABLET GT SCH ×3 (09:55→16:02)
[2016-06-18] MEDS: POLYETHYLENE GLYCOL 3350 17 GM POWD.PACK GT SCH (09:55)
[2016-06-18] MEDS: ESCITALOPRAM OXALATE (10 MG) 10 MG TABLET GT SCH (09:55)
[2016-06-18] MEDS: METOPROLOL TARTRATE 25 MG TABLET GT SCH ×2 (09:55→16:02)
[2016-06-18] MEDS: ACIDOPHILUS/BULGARICUS 1 EACH TAB.CHEW GT SCH ×3 (09:55→16:02)
[2016-06-18] MEDS: BACLOFEN (10 MG) 10 MG TABLET GT SCH ×4 (09:55→21:09)
[2016-06-18] MEDS: PROSOURCE / PROSTAT (PYXIS) 30 ML UDC GT SCH (09:56)
[2016-06-18] MEDS: FAMOTIDINE (20 MG) 20 MG TABLET GT SCH ×2 (09:56→21:09)
[2016-06-18] MEDS: CLOPIDOGREL BISULFATE 75 MG TABLET GT SCH (09:56)
[2016-06-18] MEDS: MINERAL OIL/PETROL OINT 396 GM JAR TP SCH ×3 (09:56→16:02)
[2016-06-18] MEDS: ASCORBIC ACID 500 MG TABLET GT SCH ×2 (09:56→16:02)
[2016-06-18] MEDS: HYDROCODONE/APAP 10/325MG 1 EA TABLET GT SCH ×2 (09:56→21:11)
[2016-06-18] MEDS: CALCITRIOL 0.25 MCG CAPSULE PO SCH (09:56)
[2016-06-18] MEDS: MULTIVIT, IRON, MIN NO. 8, FA 1 TAB GT SCH (09:56)
[2016-06-18] MEDS: CALCIUM CARBONATE 500 MG TAB.CHEW GT SCH ×3 (09:56→16:02)
[2016-06-18] MEDS: Z GUARD REMEDY 4 OZ OINT TP SCH ×4 (11:00→21:13)
[2016-06-18] MEDS: GENTAMICIN 0.1% OINT 15 GM TUBE TP SCH ×6 (11:00→21:11)
[2016-06-18] MEDS: HYDROGEN PEROXIDE 480 ML BOTTLE TP SCH ×2 (11:00→21:11)
[2016-06-18] MEDS: CLOTRIMAZOLE/BETAMETASONE DIPROPIONATE 15 GM TUBE TP SCH ×2 (11:00→21:12)
[2016-06-18] MEDS: HYDROGEL DRESSING 90 GM TUBE TP SCH ×2 (11:00→21:09)
[2016-06-18] MEDS: HYDROCODONE/APAP 10/325MG 1 EA TABLET GT PRN (15:06)
--- NOTE | 2016-06-18 18:42 | NUR ---
Noted with episodes of verbally abusive behavior towards nursing staff making comments while care provided he says "Do you like your job" than makes quack sound/ noises saying "fucking bitch" and he than he asked me "what did I say" "Did you understand that" . "Do you have a ?" "I would not force you into anybody" Patient is alert oriented and able to make needs known. With episodes of refusal of routine care throughout shift. All procedures explained to patient beforehand. When care was being provided he had agreed to allow nursing staff to provide care, however during care has mood swings verbally abusive behavior and trying to spit at nursing staff. Patient was explained while care was provided that if he did not like nursing staff to provide care, hygiene, wound care we could stop and come back at a later time that he is more compliant, risks vs benefits explained. Verbalized understanding, and allowed nursing staff to complete care. Care provided with two person assist at all times. Asked patient if he had pain while care provided and he responded "I have pain when I am not being listened to". "I have neuropathy" "I need more empathy" " Am I going to be like this the rest of my life". Patient kept clean and comfortable. Allowed to verbalize feelings. Call light in reach. Rn first line production supervisor notified.
--- NOTE | 2016-06-18 19:00 | NUR ---
Spoke with resident as ALUMINUM FABRICATION SUPERVISOR reported that resident is upset with her. Resident claims that he cannot speak as ALUMINUM FABRICATION SUPERVISOR removed his PMV while they were doing his care. ALUMINUM FABRICATION SUPERVISOR stated that she needs to suction patient's trach and has to remove PMV, Explained to resident that there are situations when it is uncomfortable on his part to deliver the task, such as wound care: it cannot be done quickly as he would like to, tracheal suctioning is a "must" at times patient does not want to be suctioned and waits 'till he feels like he cannot breath. Resident was also reminded to show respect to nurses because we are here to help him and not harm him. He claims that he was in pain because his face was against the bed while staff were during wound treatment. Assured resident that will remind not only the nurses assigned to him today to be mindful of positioning his face, hand and fingers due to pain. Patient stated " They don't like it when I say mean things to them". Reiterate the importance of respecting the nurses. Endorsed.
[2016-06-18 19:40] VITALS: BP 106/65
[2016-06-18] MEDS: ENOXAPARIN SODIUM 40 MG/0.4 ML DISP.SYRIN SQ SCH (21:09)
[2016-06-18] MEDS: ATORVASTATIN CALCIUM 20MG TABLET GT SCH (21:13)
[2016-06-19] MEDS: POLYETHYLENE GLYCOL 3350 17 GM POWD.PACK GT SCH (08:15)
[2016-06-19] MEDS: BACLOFEN (10 MG) 10 MG TABLET GT SCH ×4 (08:15→20:50)
[2016-06-19] MEDS: ACIDOPHILUS/BULGARICUS 1 EACH TAB.CHEW GT SCH ×3 (08:15→16:15)
[2016-06-19] MEDS: CLOPIDOGREL BISULFATE 75 MG TABLET GT SCH (08:15)
[2016-06-19] MEDS: HYDROCODONE/APAP 10/325MG 1 EA TABLET GT SCH ×2 (08:15→20:50)
[2016-06-19] MEDS: MULTIVIT, IRON, MIN NO. 8, FA 1 TAB GT SCH (08:15)
[2016-06-19] MEDS: PROSOURCE / PROSTAT (PYXIS) 30 ML UDC GT SCH (08:15)
[2016-06-19] MEDS: ESCITALOPRAM OXALATE (10 MG) 10 MG TABLET GT SCH (08:15)
[2016-06-19] MEDS: CRANBERRY GT SCH (08:15)
[2016-06-19] MEDS: FAMOTIDINE (20 MG) 20 MG TABLET GT SCH ×2 (08:15→20:51)
[2016-06-19] MEDS: GABAPENTIN 600 MG TABLET GT SCH ×3 (08:15→16:16)
[2016-06-19] MEDS: MINERAL OIL/PETROL OINT 396 GM JAR TP SCH ×3 (08:16→16:16)
[2016-06-19] MEDS: ASCORBIC ACID 500 MG TABLET GT SCH ×2 (08:16→16:16)
[2016-06-19] MEDS: CALCITRIOL 0.25 MCG CAPSULE PO SCH (08:16)
[2016-06-19] MEDS: CALCIUM CARBONATE 500 MG TAB.CHEW GT SCH ×3 (08:16→16:16)
[2016-06-19 08:48] VITALS: BP 118/80
[2016-06-19] MEDS: METOPROLOL TARTRATE 25 MG TABLET GT SCH ×2 (09:00→16:16)
[2016-06-19] MEDS: HYDROGEN PEROXIDE 480 ML BOTTLE TP SCH ×2 (09:00→20:52)
[2016-06-19] MEDS: Z GUARD REMEDY 4 OZ OINT TP SCH ×4 (09:00→20:52)
[2016-06-19] MEDS: HYDROGEL DRESSING 90 GM TUBE TP SCH ×2 (09:00→20:52)
[2016-06-19] MEDS: GENTAMICIN 0.1% OINT 15 GM TUBE TP SCH ×6 (09:00→20:52)
[2016-06-19] MEDS: CLOTRIMAZOLE/BETAMETASONE DIPROPIONATE 15 GM TUBE TP SCH ×2 (09:00→20:52)
[2016-06-19] MEDS: HYDROCODONE/APAP 10/325MG 1 EA TABLET GT PRN ×2 (11:00→17:28)
[2016-06-19 20:06] VITALS: BP 101/63
[2016-06-19] MEDS: ENOXAPARIN SODIUM 40 MG/0.4 ML DISP.SYRIN SQ SCH (20:51)
[2016-06-19] MEDS: ATORVASTATIN CALCIUM 20MG TABLET GT SCH (22:00)
[2016-06-20 08:37] VITALS: BP 134/80
[2016-06-20] MEDS: PROSOURCE / PROSTAT (PYXIS) 30 ML UDC GT SCH (09:00)
[2016-06-20] MEDS: ESCITALOPRAM OXALATE (10 MG) 10 MG TABLET GT SCH (09:00)
[2016-06-20] MEDS: FAMOTIDINE (20 MG) 20 MG TABLET GT SCH ×2 (09:00→21:00)
[2016-06-20] MEDS: MINERAL OIL/PETROL OINT 396 GM JAR TP SCH ×3 (09:00→17:41)
[2016-06-20] MEDS: CLOTRIMAZOLE/BETAMETASONE DIPROPIONATE 15 GM TUBE TP SCH ×2 (09:00→21:00)
[2016-06-20] MEDS: HYDROCODONE/APAP 10/325MG 1 EA TABLET GT SCH ×2 (09:00→21:00)
[2016-06-20] MEDS: HYDROGEL DRESSING 90 GM TUBE TP SCH ×2 (09:00→21:00)
[2016-06-20] MEDS: METOPROLOL TARTRATE 25 MG TABLET GT SCH ×2 (09:00→17:41)
[2016-06-20] MEDS: ACIDOPHILUS/BULGARICUS 1 EACH TAB.CHEW GT SCH ×3 (09:00→17:41)
[2016-06-20] MEDS: BACLOFEN (10 MG) 10 MG TABLET GT SCH ×4 (09:00→21:00)
[2016-06-20] MEDS: MULTIVIT, IRON, MIN NO. 8, FA 1 TAB GT SCH (09:00)
[2016-06-20] MEDS: CRANBERRY GT SCH (09:00)
[2016-06-20] MEDS: Z GUARD REMEDY 4 OZ OINT TP SCH ×4 (09:00→21:00)
[2016-06-20] MEDS: GABAPENTIN 600 MG TABLET GT SCH ×3 (09:00→17:41)
[2016-06-20] MEDS: CALCIUM CARBONATE 500 MG TAB.CHEW GT SCH ×3 (09:00→17:41)
[2016-06-20] MEDS: ASCORBIC ACID 500 MG TABLET GT SCH ×2 (09:00→17:41)
[2016-06-20] MEDS: CLOPIDOGREL BISULFATE 75 MG TABLET GT SCH (09:00)
[2016-06-20] MEDS: CALCITRIOL 0.25 MCG CAPSULE PO SCH (09:00)
[2016-06-20] MEDS: POLYETHYLENE GLYCOL 3350 17 GM POWD.PACK GT SCH (09:00)
[2016-06-20] MEDS: GENTAMICIN 0.1% OINT 15 GM TUBE TP SCH ×6 (09:00→21:00)
[2016-06-20] MEDS: HYDROGEN PEROXIDE 480 ML BOTTLE TP SCH ×2 (09:00→21:00)
--- NOTE | 2016-06-20 11:50 | NUR ---
WOUND CARE CONSULT: PT SEEN FOR RE-EVALUATION OF RT BUTTOCK AND SACRAL ULCERS (BOTH STAGE IV). RT BUTTOCK ULCER MEASURES 4CM X 4CM X 1CM WITH RED AND PINK COLOR, SLIGHT GREENISH/FOURNIER DRAINAGE, NO ODOR. SOME DARK RED COLOR NOTED TO BASE OF WOUND. PT BLEEDS EASILY. PERIWOUND AREA HAS SOME EXCORIATION AND BLEEDS EASILY. SACRAL ULCER MEASURES 3CM X 2CM X 0.1CM WITH SOME AREAS THAT ARE EPITHELIALIZED. COLOR IS PINK WITH SCANT SEROUS DRAINAGE. PERIWOUND AREA IS FRAGILE AND BLEEDS EASILY. NO ODOR NOTED. RECOMMEND CONTINUE CURRENT WOUND TREATMENT WITH GENTAMICIN OINTMENT,FOLLOWED BY HYDROGEL TO WOUNDS, LIGHT PACKING TO RT BUTTOCK WOUND, Z GUARD TO PERIWOUND AREAS, COVER ALL WITH OIL EMULSION AND ABD PADS, SECURE WITH TAPE. DISCUSSED WITH NURSING STAFF. DR MICHAEL PORTER FOLLOWING ABOVE WOUNDS. ALL SKIN PROTECTION MEASURES IN PLACE. WILL SEE PRN. NANCE IN AGREEMENT WITH PLAN OF CARE.
--- NOTE | 2016-06-20 15:36 | NUR ---
SW spoke with resident, as it was reported that resident was verbally abusive towards staff members. Resident was happy to see the SW and acknowledged that he was verbally abusive towards the staff members because he was in pain during his treatment. He stated " I say those words because I am in pain when they do the treatments. I wish they would stop when they see that but they don't and so I use those words to get their attention." He stated that he wishes staff members were more understanding of his condition. Spoke to resident and provided emotional support. He also stated that he wants to see pictures of his wounds but wants to wait until charge nurse Priya returns on Monday. Will notify Priya when she is here. Informed current charge nurse Jess that patient may want to pause treatments if he is in too much pain and she will endorse information to staff members.
[2016-06-20 20:16] VITALS: BP 101/62
[2016-06-20] MEDS: ENOXAPARIN SODIUM 40 MG/0.4 ML DISP.SYRIN SQ SCH (21:00)
[2016-06-20] MEDS: ATORVASTATIN CALCIUM 20MG TABLET GT SCH (22:34)
[2016-06-21] MEDS: HYDROCODONE/APAP 10/325MG 1 EA TABLET GT PRN (01:45)
[2016-06-21 07:47] VITALS: BP 114/82
[2016-06-21] MEDS: MULTIVIT, IRON, MIN NO. 8, FA 1 TAB GT SCH (09:00)
[2016-06-21] MEDS: CLOTRIMAZOLE/BETAMETASONE DIPROPIONATE 15 GM TUBE TP SCH ×2 (09:00→20:41)
[2016-06-21] MEDS: BACLOFEN (10 MG) 10 MG TABLET GT SCH ×4 (09:00→20:39)
[2016-06-21] MEDS: FAMOTIDINE (20 MG) 20 MG TABLET GT SCH ×2 (09:00→20:40)
[2016-06-21] MEDS: ESCITALOPRAM OXALATE (10 MG) 10 MG TABLET GT SCH (09:00)
[2016-06-21] MEDS: POLYETHYLENE GLYCOL 3350 17 GM POWD.PACK GT SCH (09:00)
[2016-06-21] MEDS: Z GUARD REMEDY 4 OZ OINT TP SCH ×4 (09:00→20:41)
[2016-06-21] MEDS: CALCITRIOL 0.25 MCG CAPSULE PO SCH (09:00)
[2016-06-21] MEDS: CLOPIDOGREL BISULFATE 75 MG TABLET GT SCH (09:00)
[2016-06-21] MEDS: CALCIUM CARBONATE 500 MG TAB.CHEW GT SCH ×3 (09:00→17:59)
[2016-06-21] MEDS: CRANBERRY GT SCH (09:00)
[2016-06-21] MEDS: HYDROGEL DRESSING 90 GM TUBE TP SCH ×2 (09:00→20:40)
[2016-06-21] MEDS: GABAPENTIN 600 MG TABLET GT SCH ×3 (09:00→17:59)
[2016-06-21] MEDS: METOPROLOL TARTRATE 25 MG TABLET GT SCH ×2 (09:00→17:59)
[2016-06-21] MEDS: ASCORBIC ACID 500 MG TABLET GT SCH ×2 (09:00→17:59)
[2016-06-21] MEDS: ACIDOPHILUS/BULGARICUS 1 EACH TAB.CHEW GT SCH ×3 (09:00→17:58)
[2016-06-21] MEDS: MINERAL OIL/PETROL OINT 396 GM JAR TP SCH ×3 (09:00→17:59)
[2016-06-21] MEDS: GENTAMICIN 0.1% OINT 15 GM TUBE TP SCH ×6 (09:00→20:40)
[2016-06-21] MEDS: HYDROCODONE/APAP 10/325MG 1 EA TABLET GT SCH ×2 (09:00→20:39)
[2016-06-21] MEDS: HYDROGEN PEROXIDE 480 ML BOTTLE TP SCH ×2 (09:00→20:41)
[2016-06-21] MEDS: PROSOURCE / PROSTAT (PYXIS) 30 ML UDC GT SCH (09:00)
--- NOTE | 2016-06-21 09:40 | NUR ---
Seen by Dr Ugarte with no new order.
--- NOTE | 2016-06-21 11:00 | NUR ---
Seen by Dr Conroy per MD he will seen pt on for another procedure on his facial mass.Resident agreed.
--- NOTE | 2016-06-21 17:00 | NUR ---
Order of Cb Jain for Dermatology consult for lesion on Right side of the face towards the ear noted and carried out. Dr Rafiq Jang made aware he said he will come on to evaluate.Resident and sister Vilma castillo.
[2016-06-21 19:58] VITALS: BP 100/63
[2016-06-21] MEDS: ENOXAPARIN SODIUM 40 MG/0.4 ML DISP.SYRIN SQ SCH (20:40)
[2016-06-21] MEDS: ATORVASTATIN CALCIUM 20MG TABLET GT SCH (21:31)
[2016-06-22 08:11] VITALS: BP 116/78
[2016-06-22] MEDS: ESCITALOPRAM OXALATE (10 MG) 10 MG TABLET GT SCH (09:49)
[2016-06-22] MEDS: ACIDOPHILUS/BULGARICUS 1 EACH TAB.CHEW GT SCH ×3 (09:49→17:37)
[2016-06-22] MEDS: CRANBERRY GT SCH (09:49)
[2016-06-22] MEDS: BACLOFEN (10 MG) 10 MG TABLET GT SCH ×4 (09:49→21:08)
[2016-06-22] MEDS: HYDROCODONE/APAP 10/325MG 1 EA TABLET GT SCH ×2 (09:50→21:47)
[2016-06-22] MEDS: CALCIUM CARBONATE 500 MG TAB.CHEW GT SCH ×3 (09:50→17:37)
[2016-06-22] MEDS: MULTIVIT, IRON, MIN NO. 8, FA 1 TAB GT SCH (09:50)
[2016-06-22] MEDS: PROSOURCE / PROSTAT (PYXIS) 30 ML UDC GT SCH (09:50)
[2016-06-22] MEDS: METOPROLOL TARTRATE 25 MG TABLET GT SCH ×2 (09:50→17:00)
[2016-06-22] MEDS: GABAPENTIN 600 MG TABLET GT SCH ×3 (09:50→17:37)
[2016-06-22] MEDS: CALCITRIOL 0.25 MCG CAPSULE PO SCH (09:50)
[2016-06-22] MEDS: MINERAL OIL/PETROL OINT 396 GM JAR TP SCH ×3 (09:50→17:37)
[2016-06-22] MEDS: ASCORBIC ACID 500 MG TABLET GT SCH ×2 (09:50→17:37)
[2016-06-22] MEDS: FAMOTIDINE (20 MG) 20 MG TABLET GT SCH ×2 (09:50→21:08)
[2016-06-22] MEDS: CLOPIDOGREL BISULFATE 75 MG TABLET GT SCH (09:50)
[2016-06-22] MEDS: POLYETHYLENE GLYCOL 3350 17 GM POWD.PACK GT SCH (09:50)
[2016-06-22] MEDS: HYDROGEN PEROXIDE 480 ML BOTTLE TP SCH ×2 (09:51→21:48)
[2016-06-22] MEDS: GENTAMICIN 0.1% OINT 15 GM TUBE TP SCH ×6 (09:51→21:48)
[2016-06-22] MEDS: Z GUARD REMEDY 4 OZ OINT TP SCH ×4 (09:51→21:48)
[2016-06-22] MEDS: CLOTRIMAZOLE/BETAMETASONE DIPROPIONATE 15 GM TUBE TP SCH ×2 (09:51→21:48)
[2016-06-22] MEDS: HYDROGEL DRESSING 90 GM TUBE TP SCH ×2 (09:51→21:09)
[2016-06-22] MEDS: HYDROCODONE/APAP 10/325MG 1 EA TABLET GT PRN (13:00)
--- NOTE | 2016-06-22 13:44 | NUR ---
Wound treatment performed, explained to resident that it will take a little while to complete the treatment and he will be on his side. Resident was suctioned and medicated prior to doing the treatment. While in the middle of treatment, he was yelling" I cannot breath, I cannot breath", Repositioned resident so his face is not against any linen and item the impedes his breathing, skin color pink, no cynosis. Immediately turned patient back to his back and said, "put my head up, I will miss the end of the movie", Patient is referring to the movie he is watching. Inform resident not to use alibis such as pain or unable to breath if his motive is other than relieving his discomfort. Resident saw current picture of his wound stated " now I know what 'looking better' looks like. Resident's wound improved in size and and depth. No s/s of infection.
--- NOTE | 2016-06-22 14:04 | NUR ---
Received call from resident's friend Lorraine who stated that OT from [facility] had to change the date that she would come and assess him for the device and that new date and time is now on July 05, 2016 at 10am. Notified sister in law Vilma.
--- NOTE | 2016-06-22 17:40 | NUR ---
Seen and examined by Peggy Hoffman NP for Dr. Ugarte, food technology teacher, NNO given.
[2016-06-22 20:12] VITALS: BP 100/55
[2016-06-22] MEDS: ENOXAPARIN SODIUM 40 MG/0.4 ML DISP.SYRIN SQ SCH (21:09)
[2016-06-22] MEDS: ATORVASTATIN CALCIUM 20MG TABLET GT SCH (21:48)
[2016-06-23] MEDS: HYDROCODONE/APAP 10/325MG 1 EA TABLET GT PRN (03:24)
[2016-06-23] MEDS: FAMOTIDINE (20 MG) 20 MG TABLET GT SCH ×2 (09:00→21:51)
[2016-06-23] MEDS: PROSOURCE / PROSTAT (PYXIS) 30 ML UDC GT SCH (09:00)
[2016-06-23] MEDS: CALCIUM CARBONATE 500 MG TAB.CHEW GT SCH ×3 (09:00→17:19)
[2016-06-23] MEDS: ACIDOPHILUS/BULGARICUS 1 EACH TAB.CHEW GT SCH ×3 (09:00→17:19)
[2016-06-23] MEDS: CALCITRIOL 0.25 MCG CAPSULE PO SCH (09:00)
[2016-06-23] MEDS: MULTIVIT, IRON, MIN NO. 8, FA 1 TAB GT SCH (09:00)
[2016-06-23] MEDS: ESCITALOPRAM OXALATE (10 MG) 10 MG TABLET GT SCH (09:00)
[2016-06-23] MEDS: CRANBERRY GT SCH (09:00)
[2016-06-23] MEDS: ASCORBIC ACID 500 MG TABLET GT SCH ×2 (09:00→17:19)
[2016-06-23] MEDS: POLYETHYLENE GLYCOL 3350 17 GM POWD.PACK GT SCH (09:00)
[2016-06-23] MEDS: HYDROCODONE/APAP 10/325MG 1 EA TABLET GT SCH ×2 (09:00→21:00)
[2016-06-23] MEDS: CLOPIDOGREL BISULFATE 75 MG TABLET GT SCH (09:00)
[2016-06-23] MEDS: GABAPENTIN 600 MG TABLET GT SCH ×3 (09:00→17:19)
[2016-06-23] MEDS: BACLOFEN (10 MG) 10 MG TABLET GT SCH ×4 (09:00→21:50)
[2016-06-23] MEDS: METOPROLOL TARTRATE 25 MG TABLET GT SCH ×2 (09:00→17:19)
[2016-06-23] MEDS: Z GUARD REMEDY 4 OZ OINT TP SCH ×4 (09:30→21:52)
[2016-06-23] MEDS: HYDROGEN PEROXIDE 480 ML BOTTLE TP SCH ×2 (09:30→21:52)
[2016-06-23] MEDS: MINERAL OIL/PETROL OINT 396 GM JAR TP SCH ×3 (09:30→17:19)
[2016-06-23] MEDS: CLOTRIMAZOLE/BETAMETASONE DIPROPIONATE 15 GM TUBE TP SCH ×2 (09:30→21:52)
[2016-06-23] MEDS: HYDROGEL DRESSING 90 GM TUBE TP SCH ×2 (09:30→21:51)
[2016-06-23] MEDS: GENTAMICIN 0.1% OINT 15 GM TUBE TP SCH ×6 (09:30→21:51)
--- NOTE | 2016-06-23 18:10 | NUR ---
Seen and examined by Dr. Walker with NNO
--- NOTE | 2016-06-23 18:10 | NUR ---
Still awaiting for Dr. Conroy for resection of Rt. eyelid mass
[2016-06-23 20:03] VITALS: BP 107/64
[2016-06-23] MEDS: ENOXAPARIN SODIUM 40 MG/0.4 ML DISP.SYRIN SQ SCH (21:51)
[2016-06-23] MEDS: ATORVASTATIN CALCIUM 20MG TABLET GT SCH (21:52)
[2016-06-24] MEDS: HYDROCODONE/APAP 10/325MG 1 EA TABLET GT PRN (02:46)
[2016-06-24 08:00] VITALS: BP 106/68
[2016-06-24] MEDS: CRANBERRY GT SCH (08:24)
[2016-06-24] MEDS: HYDROCODONE/APAP 10/325MG 1 EA TABLET GT SCH ×2 (08:25→22:00)
[2016-06-24] MEDS: GABAPENTIN 600 MG TABLET GT SCH ×3 (08:25→17:58)
[2016-06-24] MEDS: CALCITRIOL 0.25 MCG CAPSULE PO SCH (08:25)
[2016-06-24] MEDS: CALCIUM CARBONATE 500 MG TAB.CHEW GT SCH ×3 (08:25→17:58)
[2016-06-24] MEDS: FAMOTIDINE (20 MG) 20 MG TABLET GT SCH ×2 (08:25→21:31)
[2016-06-24] MEDS: POLYETHYLENE GLYCOL 3350 17 GM POWD.PACK GT SCH (08:25)
[2016-06-24] MEDS: BACLOFEN (10 MG) 10 MG TABLET GT SCH ×4 (08:25→21:31)
[2016-06-24] MEDS: ESCITALOPRAM OXALATE (10 MG) 10 MG TABLET GT SCH (08:25)
[2016-06-24] MEDS: ASCORBIC ACID 500 MG TABLET GT SCH ×2 (08:25→17:58)
[2016-06-24] MEDS: METOPROLOL TARTRATE 25 MG TABLET GT SCH ×2 (08:25→17:58)
[2016-06-24] MEDS: CLOPIDOGREL BISULFATE 75 MG TABLET GT SCH (08:25)
[2016-06-24] MEDS: ACIDOPHILUS/BULGARICUS 1 EACH TAB.CHEW GT SCH ×3 (08:25→17:58)
[2016-06-24] MEDS: MULTIVIT, IRON, MIN NO. 8, FA 1 TAB GT SCH (08:25)
[2016-06-24] MEDS: PROSOURCE / PROSTAT (PYXIS) 30 ML UDC GT SCH (08:25)
[2016-06-24] MEDS: CLOTRIMAZOLE/BETAMETASONE DIPROPIONATE 15 GM TUBE TP SCH ×2 (09:00→22:00)
[2016-06-24] MEDS: Z GUARD REMEDY 4 OZ OINT TP SCH ×4 (09:00→22:00)
[2016-06-24] MEDS: GENTAMICIN 0.1% OINT 15 GM TUBE TP SCH ×6 (09:00→22:00)
[2016-06-24] MEDS: HYDROGEN PEROXIDE 480 ML BOTTLE TP SCH ×2 (09:00→22:00)
[2016-06-24] MEDS: MINERAL OIL/PETROL OINT 396 GM JAR TP SCH ×3 (09:00→17:59)
[2016-06-24] MEDS: HYDROGEL DRESSING 90 GM TUBE TP SCH ×2 (09:00→22:00)
[2016-06-24 20:03] VITALS: BP 101/62
[2016-06-24] MEDS: ENOXAPARIN SODIUM 40 MG/0.4 ML DISP.SYRIN SQ SCH (21:32)
[2016-06-24] MEDS: ATORVASTATIN CALCIUM 20MG TABLET GT SCH (22:27)
[2016-06-25 07:54] VITALS: BP 121/80
[2016-06-25] MEDS: BACLOFEN (10 MG) 10 MG TABLET GT SCH ×4 (09:39→21:35)
[2016-06-25] MEDS: ACIDOPHILUS/BULGARICUS 1 EACH TAB.CHEW GT SCH ×3 (09:39→16:38)
[2016-06-25] MEDS: ESCITALOPRAM OXALATE (10 MG) 10 MG TABLET GT SCH (09:39)
[2016-06-25] MEDS: CRANBERRY GT SCH (09:39)
[2016-06-25] MEDS: ASCORBIC ACID 500 MG TABLET GT SCH ×2 (09:40→16:38)
[2016-06-25] MEDS: FAMOTIDINE (20 MG) 20 MG TABLET GT SCH ×2 (09:40→21:35)
[2016-06-25] MEDS: POLYETHYLENE GLYCOL 3350 17 GM POWD.PACK GT SCH (09:40)
[2016-06-25] MEDS: CALCITRIOL 0.25 MCG CAPSULE PO SCH (09:40)
[2016-06-25] MEDS: PROSOURCE / PROSTAT (PYXIS) 30 ML UDC GT SCH (09:40)
[2016-06-25] MEDS: CALCIUM CARBONATE 500 MG TAB.CHEW GT SCH ×3 (09:40→16:38)
[2016-06-25] MEDS: HYDROCODONE/APAP 10/325MG 1 EA TABLET GT SCH ×2 (09:40→21:49)
[2016-06-25] MEDS: CLOPIDOGREL BISULFATE 75 MG TABLET GT SCH (09:40)
[2016-06-25] MEDS: GABAPENTIN 600 MG TABLET GT SCH ×3 (09:40→16:38)
[2016-06-25] MEDS: MULTIVIT, IRON, MIN NO. 8, FA 1 TAB GT SCH (09:40)
[2016-06-25] MEDS: METOPROLOL TARTRATE 25 MG TABLET GT SCH ×2 (09:40→16:38)
[2016-06-25] MEDS: HYDROGEN PEROXIDE 480 ML BOTTLE TP SCH ×2 (10:30→21:37)
[2016-06-25] MEDS: GENTAMICIN 0.1% OINT 15 GM TUBE TP SCH ×4 (10:30→21:37)
[2016-06-25] MEDS: CLOTRIMAZOLE/BETAMETASONE DIPROPIONATE 15 GM TUBE TP SCH ×2 (10:30→21:37)
[2016-06-25] MEDS: MINERAL OIL/PETROL OINT 396 GM JAR TP SCH ×3 (10:30→16:39)
[2016-06-25] MEDS: HYDROCODONE/APAP 10/325MG 1 EA TABLET GT PRN (16:39)
[2016-06-25 19:59] VITALS: BP 116/64
[2016-06-25] MEDS: ENOXAPARIN SODIUM 40 MG/0.4 ML DISP.SYRIN SQ SCH (21:36)
[2016-06-25] MEDS: HYDROGEL DRESSING 90 GM TUBE TP SCH (21:36)
[2016-06-25] MEDS: Z GUARD REMEDY 4 OZ OINT TP SCH ×2 (21:37)
[2016-06-25] MEDS: ATORVASTATIN CALCIUM 20MG TABLET GT SCH (21:37)
[2016-06-26 08:28] VITALS: BP 110/81
[2016-06-26] MEDS: BACLOFEN (10 MG) 10 MG TABLET GT SCH ×4 (09:06→20:38)
[2016-06-26] MEDS: ACIDOPHILUS/BULGARICUS 1 EACH TAB.CHEW GT SCH ×3 (09:06→16:48)
[2016-06-26] MEDS: CRANBERRY GT SCH (09:06)
[2016-06-26] MEDS: ESCITALOPRAM OXALATE (10 MG) 10 MG TABLET GT SCH (09:06)
[2016-06-26] MEDS: FAMOTIDINE (20 MG) 20 MG TABLET GT SCH ×2 (09:07→20:38)
[2016-06-26] MEDS: HYDROCODONE/APAP 10/325MG 1 EA TABLET GT SCH ×2 (09:07→20:38)
[2016-06-26] MEDS: CALCIUM CARBONATE 500 MG TAB.CHEW GT SCH ×3 (09:07→16:48)
[2016-06-26] MEDS: MULTIVIT, IRON, MIN NO. 8, FA 1 TAB GT SCH (09:07)
[2016-06-26] MEDS: PROSOURCE / PROSTAT (PYXIS) 30 ML UDC GT SCH (09:07)
[2016-06-26] MEDS: MINERAL OIL/PETROL OINT 396 GM JAR TP SCH ×3 (09:07→16:48)
[2016-06-26] MEDS: CLOPIDOGREL BISULFATE 75 MG TABLET GT SCH (09:07)
[2016-06-26] MEDS: POLYETHYLENE GLYCOL 3350 17 GM POWD.PACK GT SCH (09:07)
[2016-06-26] MEDS: CALCITRIOL 0.25 MCG CAPSULE PO SCH (09:07)
[2016-06-26] MEDS: GABAPENTIN 600 MG TABLET GT SCH ×3 (09:07→16:48)
[2016-06-26] MEDS: ASCORBIC ACID 500 MG TABLET GT SCH ×2 (09:07→16:48)
[2016-06-26] MEDS: METOPROLOL TARTRATE 25 MG TABLET GT SCH ×2 (09:07→16:48)
[2016-06-26] MEDS: CLOTRIMAZOLE/BETAMETASONE DIPROPIONATE 15 GM TUBE TP SCH ×2 (09:08→20:40)
[2016-06-26] MEDS: Z GUARD REMEDY 4 OZ OINT TP SCH ×4 (09:08→20:41)
[2016-06-26] MEDS: HYDROGEN PEROXIDE 480 ML BOTTLE TP SCH ×2 (09:08→20:40)
[2016-06-26] MEDS: HYDROGEL DRESSING 90 GM TUBE TP SCH ×2 (09:08→20:40)
[2016-06-26] MEDS: GENTAMICIN 0.1% OINT 15 GM TUBE TP SCH ×6 (09:08→20:40)
[2016-06-26 20:10] VITALS: BP 124/78
[2016-06-26] MEDS: ENOXAPARIN SODIUM 40 MG/0.4 ML DISP.SYRIN SQ SCH (20:40)
[2016-06-26] MEDS: ATORVASTATIN CALCIUM 20MG TABLET GT SCH (21:12)
[2016-06-27 08:26] VITALS: BP 124/65
[2016-06-27] MEDS: MINERAL OIL/PETROL OINT 396 GM JAR TP SCH ×3 (09:00→17:00)
[2016-06-27] MEDS: Z GUARD REMEDY 4 OZ OINT TP SCH ×4 (09:00→20:59)
[2016-06-27] MEDS: CLOTRIMAZOLE/BETAMETASONE DIPROPIONATE 15 GM TUBE TP SCH ×2 (09:00→20:59)
[2016-06-27] MEDS: GENTAMICIN 0.1% OINT 15 GM TUBE TP SCH ×6 (09:00→20:59)
[2016-06-27] MEDS: HYDROGEL DRESSING 90 GM TUBE TP SCH ×2 (09:00→20:59)
[2016-06-27] MEDS: HYDROGEN PEROXIDE 480 ML BOTTLE TP SCH ×2 (09:00→20:59)
[2016-06-27] MEDS: METOPROLOL TARTRATE 25 MG TABLET GT SCH ×2 (09:58→17:00)
[2016-06-27] MEDS: BACLOFEN (10 MG) 10 MG TABLET GT SCH ×4 (09:58→20:58)
[2016-06-27] MEDS: ESCITALOPRAM OXALATE (10 MG) 10 MG TABLET GT SCH (09:58)
[2016-06-27] MEDS: CRANBERRY GT SCH (09:58)
[2016-06-27] MEDS: GABAPENTIN 600 MG TABLET GT SCH ×3 (09:58→17:00)
[2016-06-27] MEDS: ACIDOPHILUS/BULGARICUS 1 EACH TAB.CHEW GT SCH ×3 (09:58→17:00)
[2016-06-27] MEDS: POLYETHYLENE GLYCOL 3350 17 GM POWD.PACK GT SCH (09:58)
[2016-06-27] MEDS: CLOPIDOGREL BISULFATE 75 MG TABLET GT SCH (09:59)
[2016-06-27] MEDS: PROSOURCE / PROSTAT (PYXIS) 30 ML UDC GT SCH (09:59)
[2016-06-27] MEDS: FAMOTIDINE (20 MG) 20 MG TABLET GT SCH ×2 (09:59→20:58)
[2016-06-27] MEDS: ASCORBIC ACID 500 MG TABLET GT SCH ×2 (09:59→17:00)
[2016-06-27] MEDS: MULTIVIT, IRON, MIN NO. 8, FA 1 TAB GT SCH (09:59)
[2016-06-27] MEDS: HYDROCODONE/APAP 10/325MG 1 EA TABLET GT SCH ×2 (09:59→20:58)
[2016-06-27] MEDS: CALCIUM CARBONATE 500 MG TAB.CHEW GT SCH ×3 (09:59→17:00)
[2016-06-27] MEDS: CALCITRIOL 0.25 MCG CAPSULE PO SCH (09:59)
[2016-06-27 20:07] VITALS: BP 101/59
[2016-06-27] MEDS: ENOXAPARIN SODIUM 40 MG/0.4 ML DISP.SYRIN SQ SCH (20:59)
[2016-06-27] MEDS: ATORVASTATIN CALCIUM 20MG TABLET GT SCH (22:24)
[2016-06-28 08:21] VITALS: BP 116/70
[2016-06-28] MEDS: ASCORBIC ACID 500 MG TABLET GT SCH ×2 (09:00→17:44)
[2016-06-28] MEDS: CALCITRIOL 0.25 MCG CAPSULE PO SCH (09:00)
[2016-06-28] MEDS: HYDROGEL DRESSING 90 GM TUBE TP SCH ×2 (09:00→20:50)
[2016-06-28] MEDS: FAMOTIDINE (20 MG) 20 MG TABLET GT SCH ×2 (09:00→20:50)
[2016-06-28] MEDS: BACLOFEN (10 MG) 10 MG TABLET GT SCH ×4 (09:00→20:50)
[2016-06-28] MEDS: Z GUARD REMEDY 4 OZ OINT TP SCH ×4 (09:00→20:51)
[2016-06-28] MEDS: PROSOURCE / PROSTAT (PYXIS) 30 ML UDC GT SCH (09:00)
[2016-06-28] MEDS: CLOTRIMAZOLE/BETAMETASONE DIPROPIONATE 15 GM TUBE TP SCH ×2 (09:00→20:51)
[2016-06-28] MEDS: CRANBERRY GT SCH (09:00)
[2016-06-28] MEDS: GABAPENTIN 600 MG TABLET GT SCH ×3 (09:00→17:44)
[2016-06-28] MEDS: CALCIUM CARBONATE 500 MG TAB.CHEW GT SCH ×3 (09:00→17:44)
[2016-06-28] MEDS: MINERAL OIL/PETROL OINT 396 GM JAR TP SCH ×3 (09:00→17:45)
[2016-06-28] MEDS: MULTIVIT, IRON, MIN NO. 8, FA 1 TAB GT SCH (09:00)
[2016-06-28] MEDS: POLYETHYLENE GLYCOL 3350 17 GM POWD.PACK GT SCH (09:00)
[2016-06-28] MEDS: HYDROGEN PEROXIDE 480 ML BOTTLE TP SCH ×2 (09:00→20:51)
[2016-06-28] MEDS: ESCITALOPRAM OXALATE (10 MG) 10 MG TABLET GT SCH (09:00)
[2016-06-28] MEDS: GENTAMICIN 0.1% OINT 15 GM TUBE TP SCH ×6 (09:00→20:51)
[2016-06-28] MEDS: CLOPIDOGREL BISULFATE 75 MG TABLET GT SCH (09:00)
[2016-06-28] MEDS: METOPROLOL TARTRATE 25 MG TABLET GT SCH ×2 (09:00→17:44)
[2016-06-28] MEDS: HYDROCODONE/APAP 10/325MG 1 EA TABLET GT SCH ×2 (09:00→20:50)
[2016-06-28] MEDS: ACIDOPHILUS/BULGARICUS 1 EACH TAB.CHEW GT SCH ×3 (09:00→17:44)
--- NOTE | 2016-06-28 10:10 | NUR ---
Seen and examined by Dr Ugarte with no new order.
[2016-06-28 19:57] VITALS: BP 103/68
[2016-06-28] MEDS: ENOXAPARIN SODIUM 40 MG/0.4 ML DISP.SYRIN SQ SCH (20:50)
[2016-06-28] MEDS: ATORVASTATIN CALCIUM 20MG TABLET GT SCH (22:55)
[2016-06-29 08:09] VITALS: BP 124/78
[2016-06-29] MEDS: MINERAL OIL/PETROL OINT 396 GM JAR TP SCH ×3 (09:00→16:05)
[2016-06-29] MEDS: ACIDOPHILUS/BULGARICUS 1 EACH TAB.CHEW GT SCH ×3 (09:00→16:05)
[2016-06-29] MEDS: CRANBERRY GT SCH (09:00)
[2016-06-29] MEDS: Z GUARD REMEDY 4 OZ OINT TP SCH ×4 (09:00→21:21)
[2016-06-29] MEDS: CLOPIDOGREL BISULFATE 75 MG TABLET GT SCH (09:00)
[2016-06-29] MEDS: MULTIVIT, IRON, MIN NO. 8, FA 1 TAB GT SCH (09:00)
[2016-06-29] MEDS: METOPROLOL TARTRATE 25 MG TABLET GT SCH ×2 (09:00→16:05)
[2016-06-29] MEDS: POLYETHYLENE GLYCOL 3350 17 GM POWD.PACK GT SCH (09:00)
[2016-06-29] MEDS: GABAPENTIN 600 MG TABLET GT SCH ×3 (09:00→16:05)
[2016-06-29] MEDS: HYDROGEL DRESSING 90 GM TUBE TP SCH ×2 (09:00→21:20)
[2016-06-29] MEDS: PROSOURCE / PROSTAT (PYXIS) 30 ML UDC GT SCH (09:00)
[2016-06-29] MEDS: GENTAMICIN 0.1% OINT 15 GM TUBE TP SCH ×6 (09:00→21:20)
[2016-06-29] MEDS: ESCITALOPRAM OXALATE (10 MG) 10 MG TABLET GT SCH (09:00)
[2016-06-29] MEDS: ASCORBIC ACID 500 MG TABLET GT SCH ×2 (09:00→16:05)
[2016-06-29] MEDS: HYDROCODONE/APAP 10/325MG 1 EA TABLET GT SCH ×2 (09:00→21:20)
[2016-06-29] MEDS: CLOTRIMAZOLE/BETAMETASONE DIPROPIONATE 15 GM TUBE TP SCH ×2 (09:00→21:20)
[2016-06-29] MEDS: CALCIUM CARBONATE 500 MG TAB.CHEW GT SCH ×3 (09:00→16:05)
[2016-06-29] MEDS: HYDROGEN PEROXIDE 480 ML BOTTLE TP SCH ×2 (09:00→21:20)
[2016-06-29] MEDS: FAMOTIDINE (20 MG) 20 MG TABLET GT SCH ×2 (09:00→21:20)
[2016-06-29] MEDS: BACLOFEN (10 MG) 10 MG TABLET GT SCH ×4 (09:00→21:19)
[2016-06-29] MEDS: CALCITRIOL 0.25 MCG CAPSULE PO SCH (09:00)
--- NOTE | 2016-06-29 12:54 | NUR ---
Follow-up call made with Dr. Conroy regarding resection R eyelid mass and to check lesion on the R side of the face towards the ear. According to Dr. Conroy he will come tomorrow. Endorsed.
[2016-06-29] MEDS: HYDROCODONE/APAP 10/325MG 1 EA TABLET GT PRN (16:05)
[2016-06-29 20:04] VITALS: BP 100/63
[2016-06-29] MEDS: ENOXAPARIN SODIUM 40 MG/0.4 ML DISP.SYRIN SQ SCH (21:20)
[2016-06-29] MEDS: ATORVASTATIN CALCIUM 20MG TABLET GT SCH (21:21)
[2016-06-30] MEDS: MAGNESIUM HYDROXIDE 30 ML UDC GT PRN (06:35)
[2016-06-30 07:38] VITALS: BP 114/72
[2016-06-30] MEDS: BACLOFEN (10 MG) 10 MG TABLET GT SCH ×4 (09:26→20:25)
[2016-06-30] MEDS: ACIDOPHILUS/BULGARICUS 1 EACH TAB.CHEW GT SCH ×3 (09:26→16:46)
[2016-06-30] MEDS: ESCITALOPRAM OXALATE (10 MG) 10 MG TABLET GT SCH (09:26)
[2016-06-30] MEDS: CRANBERRY GT SCH (09:26)
[2016-06-30] MEDS: MULTIVIT, IRON, MIN NO. 8, FA 1 TAB GT SCH (09:27)
[2016-06-30] MEDS: METOPROLOL TARTRATE 25 MG TABLET GT SCH ×2 (09:27→16:46)
[2016-06-30] MEDS: ASCORBIC ACID 500 MG TABLET GT SCH ×2 (09:27→16:46)
[2016-06-30] MEDS: CLOPIDOGREL BISULFATE 75 MG TABLET GT SCH (09:27)
[2016-06-30] MEDS: HYDROCODONE/APAP 10/325MG 1 EA TABLET GT SCH ×2 (09:27→20:27)
[2016-06-30] MEDS: GABAPENTIN 600 MG TABLET GT SCH ×3 (09:27→16:46)
[2016-06-30] MEDS: POLYETHYLENE GLYCOL 3350 17 GM POWD.PACK GT SCH (09:27)
[2016-06-30] MEDS: CALCIUM CARBONATE 500 MG TAB.CHEW GT SCH ×3 (09:27→16:46)
[2016-06-30] MEDS: FAMOTIDINE (20 MG) 20 MG TABLET GT SCH ×2 (09:27→20:25)
[2016-06-30] MEDS: PROSOURCE / PROSTAT (PYXIS) 30 ML UDC GT SCH (09:27)
[2016-06-30] MEDS: CALCITRIOL 0.25 MCG CAPSULE PO SCH (09:27)
[2016-06-30] MEDS: CLOTRIMAZOLE/BETAMETASONE DIPROPIONATE 15 GM TUBE TP SCH ×2 (10:00→20:26)
[2016-06-30] MEDS: MINERAL OIL/PETROL OINT 396 GM JAR TP SCH ×3 (10:00→16:47)
[2016-06-30] MEDS: GENTAMICIN 0.1% OINT 15 GM TUBE TP SCH ×6 (10:00→20:26)
[2016-06-30] MEDS: HYDROGEN PEROXIDE 480 ML BOTTLE TP SCH ×2 (10:00→20:26)
[2016-06-30] MEDS: Z GUARD REMEDY 4 OZ OINT TP SCH ×4 (10:00→20:26)
[2016-06-30] MEDS: HYDROGEL DRESSING 90 GM TUBE TP SCH ×2 (10:00→20:25)
--- NOTE | 2016-06-30 16:54 | NUR ---
Dr. Conroy came to see pt's right eyelid mass and right side of face lesion. He said he come again next week to follow-up on them. No procedure was done at this time.
[2016-06-30] MEDS: ENOXAPARIN SODIUM 40 MG/0.4 ML DISP.SYRIN SQ SCH (20:25)
[2016-06-30] MEDS: ATORVASTATIN CALCIUM 20MG TABLET GT SCH (21:08)
[2016-06-30 22:25] VITALS: BP 106/61
[2016-07-01] MEDS: MAGNESIUM HYDROXIDE 30 ML UDC GT PRN ×2 (05:17→23:23)
[2016-07-01 07:33] VITALS: BP 109/75
[2016-07-01] MEDS: CRANBERRY GT SCH (09:15)
[2016-07-01] MEDS: MULTIVIT, IRON, MIN NO. 8, FA 1 TAB GT SCH (09:15)
[2016-07-01] MEDS: METOPROLOL TARTRATE 25 MG TABLET GT SCH ×2 (09:15→17:00)
[2016-07-01] MEDS: POLYETHYLENE GLYCOL 3350 17 GM POWD.PACK GT SCH (09:15)
[2016-07-01] MEDS: CALCITRIOL 0.25 MCG CAPSULE PO SCH (09:15)
[2016-07-01] MEDS: PROSOURCE / PROSTAT (PYXIS) 30 ML UDC GT SCH (09:15)
[2016-07-01] MEDS: ESCITALOPRAM OXALATE (10 MG) 10 MG TABLET GT SCH (09:15)
[2016-07-01] MEDS: CLOPIDOGREL BISULFATE 75 MG TABLET GT SCH (09:15)
[2016-07-01] MEDS: GABAPENTIN 600 MG TABLET GT SCH ×3 (09:15→17:00)
[2016-07-01] MEDS: CALCIUM CARBONATE 500 MG TAB.CHEW GT SCH ×3 (09:15→17:00)
[2016-07-01] MEDS: ACIDOPHILUS/BULGARICUS 1 EACH TAB.CHEW GT SCH ×3 (09:15→17:00)
[2016-07-01] MEDS: ASCORBIC ACID 500 MG TABLET GT SCH ×2 (09:15→17:00)
[2016-07-01] MEDS: BACLOFEN (10 MG) 10 MG TABLET GT SCH ×4 (09:15→20:25)
[2016-07-01] MEDS: FAMOTIDINE (20 MG) 20 MG TABLET GT SCH ×2 (09:15→20:26)
[2016-07-01] MEDS: HYDROCODONE/APAP 10/325MG 1 EA TABLET GT SCH ×2 (09:15→20:26)
[2016-07-01] MEDS: CLOTRIMAZOLE/BETAMETASONE DIPROPIONATE 15 GM TUBE TP SCH ×2 (09:45→20:26)
[2016-07-01] MEDS: HYDROGEN PEROXIDE 480 ML BOTTLE TP SCH ×2 (09:45→20:26)
[2016-07-01] MEDS: Z GUARD REMEDY 4 OZ OINT TP SCH ×4 (09:45→20:27)
[2016-07-01] MEDS: MINERAL OIL/PETROL OINT 396 GM JAR TP SCH ×3 (09:45→17:00)
[2016-07-01] MEDS: HYDROGEL DRESSING 90 GM TUBE TP SCH ×2 (09:45→20:26)
[2016-07-01] MEDS: GENTAMICIN 0.1% OINT 15 GM TUBE TP SCH ×6 (09:45→20:26)
--- NOTE | 2016-07-01 18:22 | NUR ---
Behavior monitoring for positive behavior - episode of cursing /foul language towards staff, encouraged patient to have a positive behavior towards staff, patient still hostile to staff.
[2016-07-01 19:36] VITALS: BP 101/54
[2016-07-01] MEDS: ENOXAPARIN SODIUM 40 MG/0.4 ML DISP.SYRIN SQ SCH (20:26)
[2016-07-01] MEDS: METHOCARBAMOL (750MG) 750 MG TABLET GT PRN (21:31)
[2016-07-01] MEDS: ATORVASTATIN CALCIUM 20MG TABLET GT SCH (21:31)
[2016-07-02 07:36] VITALS: BP 114/64
[2016-07-02] MEDS: FAMOTIDINE (20 MG) 20 MG TABLET GT SCH ×2 (08:35→20:31)
[2016-07-02] MEDS: CRANBERRY GT SCH (08:35)
[2016-07-02] MEDS: CLOPIDOGREL BISULFATE 75 MG TABLET GT SCH (08:35)
[2016-07-02] MEDS: CALCIUM CARBONATE 500 MG TAB.CHEW GT SCH ×3 (08:35→16:53)
[2016-07-02] MEDS: PROSOURCE / PROSTAT (PYXIS) 30 ML UDC GT SCH (08:35)
[2016-07-02] MEDS: METOPROLOL TARTRATE 25 MG TABLET GT SCH ×2 (08:35→16:52)
[2016-07-02] MEDS: GABAPENTIN 600 MG TABLET GT SCH ×3 (08:35→16:53)
[2016-07-02] MEDS: ASCORBIC ACID 500 MG TABLET GT SCH ×2 (08:35→16:53)
[2016-07-02] MEDS: ACIDOPHILUS/BULGARICUS 1 EACH TAB.CHEW GT SCH ×3 (08:35→16:52)
[2016-07-02] MEDS: BACLOFEN (10 MG) 10 MG TABLET GT SCH ×4 (08:35→20:31)
[2016-07-02] MEDS: HYDROCODONE/APAP 10/325MG 1 EA TABLET GT SCH ×2 (08:35→20:31)
[2016-07-02] MEDS: MULTIVIT, IRON, MIN NO. 8, FA 1 TAB GT SCH (08:35)
[2016-07-02] MEDS: POLYETHYLENE GLYCOL 3350 17 GM POWD.PACK GT SCH (08:35)
[2016-07-02] MEDS: CALCITRIOL 0.25 MCG CAPSULE PO SCH (08:35)
[2016-07-02] MEDS: ESCITALOPRAM OXALATE (10 MG) 10 MG TABLET GT SCH (08:35)
[2016-07-02] MEDS: HYDROGEN PEROXIDE 480 ML BOTTLE TP SCH ×2 (09:00→20:32)
[2016-07-02] MEDS: GENTAMICIN 0.1% OINT 15 GM TUBE TP SCH ×6 (09:00→20:31)
[2016-07-02] MEDS: HYDROGEL DRESSING 90 GM TUBE TP SCH ×2 (09:00→20:31)
[2016-07-02] MEDS: MINERAL OIL/PETROL OINT 396 GM JAR TP SCH ×3 (09:00→17:00)
[2016-07-02] MEDS: Z GUARD REMEDY 4 OZ OINT TP SCH ×4 (09:00→20:32)
[2016-07-02 19:55] VITALS: BP 109/68
[2016-07-02] MEDS: ENOXAPARIN SODIUM 40 MG/0.4 ML DISP.SYRIN SQ SCH (20:31)
[2016-07-02] MEDS: ATORVASTATIN CALCIUM 20MG TABLET GT SCH (21:09)
[2016-07-03] MEDS: HYDROCODONE/APAP 10/325MG 1 EA TABLET GT PRN (00:02)
[2016-07-03] MEDS: MAGNESIUM HYDROXIDE 30 ML UDC GT PRN (05:12)
[2016-07-03] MEDS: METHOCARBAMOL (750MG) 750 MG TABLET GT PRN (05:12)
[2016-07-03] MEDS: ACETAMINOPHEN 650 MG/20 ML UDC- FOR SA PATIENTS ONLY GT PRN (05:13)
[2016-07-03 08:00] VITALS: BP 123/76
[2016-07-03] MEDS: ACIDOPHILUS/BULGARICUS 1 EACH TAB.CHEW GT SCH ×3 (09:00→17:00)
[2016-07-03] MEDS: CLOPIDOGREL BISULFATE 75 MG TABLET GT SCH (09:00)
[2016-07-03] MEDS: CALCIUM CARBONATE 500 MG TAB.CHEW GT SCH ×3 (09:00→17:00)
[2016-07-03] MEDS: CRANBERRY GT SCH (09:00)
[2016-07-03] MEDS: ESCITALOPRAM OXALATE (10 MG) 10 MG TABLET GT SCH (09:00)
[2016-07-03] MEDS: POLYETHYLENE GLYCOL 3350 17 GM POWD.PACK GT SCH (09:00)
[2016-07-03] MEDS: BACLOFEN (10 MG) 10 MG TABLET GT SCH ×4 (09:00→21:20)
[2016-07-03] MEDS: GABAPENTIN 600 MG TABLET GT SCH ×3 (09:00→17:00)
[2016-07-03] MEDS: ASCORBIC ACID 500 MG TABLET GT SCH ×2 (09:00→17:00)
[2016-07-03] MEDS: CALCITRIOL 0.25 MCG CAPSULE PO SCH (09:00)
[2016-07-03] MEDS: FAMOTIDINE (20 MG) 20 MG TABLET GT SCH ×2 (09:00→21:20)
[2016-07-03] MEDS: MULTIVIT, IRON, MIN NO. 8, FA 1 TAB GT SCH (09:00)
[2016-07-03] MEDS: PROSOURCE / PROSTAT (PYXIS) 30 ML UDC GT SCH (09:00)
[2016-07-03] MEDS: METOPROLOL TARTRATE 25 MG TABLET GT SCH ×2 (09:00→17:00)
[2016-07-03] MEDS: MINERAL OIL/PETROL OINT 396 GM JAR TP SCH ×3 (13:00→17:00)
[2016-07-03] MEDS: HYDROCODONE/APAP 10/325MG 1 EA TABLET GT SCH ×3 (14:00→21:22)
[2016-07-03] MEDS: Z GUARD REMEDY 4 OZ OINT TP SCH ×4 (14:30→21:21)
[2016-07-03] MEDS: GENTAMICIN 0.1% OINT 15 GM TUBE TP SCH ×6 (14:30→21:20)
[2016-07-03] MEDS: HYDROGEL DRESSING 90 GM TUBE TP SCH ×2 (14:30→21:20)
[2016-07-03] MEDS: HYDROGEN PEROXIDE 480 ML BOTTLE TP SCH ×2 (14:30→21:20)
[2016-07-03 19:52] VITALS: BP 118/67
[2016-07-03] MEDS: ENOXAPARIN SODIUM 40 MG/0.4 ML DISP.SYRIN SQ SCH (21:20)
[2016-07-03] MEDS: CLOTRIMAZOLE/BETAMETASONE DIPROPIONATE 15 GM TUBE TP SCH (21:20)
[2016-07-03] MEDS: ATORVASTATIN CALCIUM 20MG TABLET GT SCH (21:21)
[2016-07-04 08:04] VITALS: BP 136/89
[2016-07-04] MEDS: CRANBERRY GT SCH (09:00)
[2016-07-04] MEDS: PROSOURCE / PROSTAT (PYXIS) 30 ML UDC GT SCH (09:00)
[2016-07-04] MEDS: ESCITALOPRAM OXALATE (10 MG) 10 MG TABLET GT SCH (09:00)
[2016-07-04] MEDS: METOPROLOL TARTRATE 25 MG TABLET GT SCH ×2 (09:00→17:00)
[2016-07-04] MEDS: FAMOTIDINE (20 MG) 20 MG TABLET GT SCH ×2 (09:00→21:08)
[2016-07-04] MEDS: CALCITRIOL 0.25 MCG CAPSULE PO SCH (09:00)
[2016-07-04] MEDS: POLYETHYLENE GLYCOL 3350 17 GM POWD.PACK GT SCH (09:00)
[2016-07-04] MEDS: CLOPIDOGREL BISULFATE 75 MG TABLET GT SCH (09:00)
[2016-07-04] MEDS: GABAPENTIN 600 MG TABLET GT SCH ×3 (09:00→17:00)
[2016-07-04] MEDS: ASCORBIC ACID 500 MG TABLET GT SCH ×2 (09:00→17:00)
[2016-07-04] MEDS: BACLOFEN (10 MG) 10 MG TABLET GT SCH ×4 (09:00→21:08)
[2016-07-04] MEDS: MULTIVIT, IRON, MIN NO. 8, FA 1 TAB GT SCH (09:00)
[2016-07-04] MEDS: CALCIUM CARBONATE 500 MG TAB.CHEW GT SCH ×3 (09:00→17:00)
[2016-07-04] MEDS: ACIDOPHILUS/BULGARICUS 1 EACH TAB.CHEW GT SCH ×3 (09:00→17:00)
[2016-07-04] MEDS: MINERAL OIL/PETROL OINT 396 GM JAR TP SCH ×3 (13:00→17:00)
[2016-07-04] MEDS: HYDROCODONE/APAP 10/325MG 1 EA TABLET GT SCH ×2 (14:00→21:08)
[2016-07-04] MEDS: HYDROGEL DRESSING 90 GM TUBE TP SCH ×2 (14:30→21:09)
[2016-07-04] MEDS: HYDROGEN PEROXIDE 480 ML BOTTLE TP SCH ×2 (14:30→21:09)
[2016-07-04] MEDS: CLOTRIMAZOLE/BETAMETASONE DIPROPIONATE 15 GM TUBE TP SCH ×2 (14:30→21:09)
[2016-07-04] MEDS: Z GUARD REMEDY 4 OZ OINT TP SCH ×4 (14:30→21:09)
[2016-07-04] MEDS: GENTAMICIN 0.1% OINT 15 GM TUBE TP SCH ×5 (14:30→21:09)
[2016-07-04 20:29] VITALS: BP 101/62
[2016-07-04] MEDS: ENOXAPARIN SODIUM 40 MG/0.4 ML DISP.SYRIN SQ SCH (21:09)
[2016-07-04] MEDS: ATORVASTATIN CALCIUM 20MG TABLET GT SCH (21:09)
[2016-07-05 08:00] VITALS: BP 156/76
[2016-07-05] MEDS: CRANBERRY GT SCH (09:51)
[2016-07-05] MEDS: ACIDOPHILUS/BULGARICUS 1 EACH TAB.CHEW GT SCH ×3 (09:51→17:00)
[2016-07-05] MEDS: METOPROLOL TARTRATE 25 MG TABLET GT SCH ×2 (09:51→17:00)
[2016-07-05] MEDS: ESCITALOPRAM OXALATE (10 MG) 10 MG TABLET GT SCH (09:51)
[2016-07-05] MEDS: BACLOFEN (10 MG) 10 MG TABLET GT SCH ×4 (09:51→21:17)
[2016-07-05] MEDS: CLOPIDOGREL BISULFATE 75 MG TABLET GT SCH (09:52)
[2016-07-05] MEDS: CALCITRIOL 0.25 MCG CAPSULE PO SCH (09:52)
[2016-07-05] MEDS: ASCORBIC ACID 500 MG TABLET GT SCH ×2 (09:52→17:00)
[2016-07-05] MEDS: CALCIUM CARBONATE 500 MG TAB.CHEW GT SCH ×3 (09:52→17:00)
[2016-07-05] MEDS: FAMOTIDINE (20 MG) 20 MG TABLET GT SCH ×2 (09:52→21:18)
[2016-07-05] MEDS: PROSOURCE / PROSTAT (PYXIS) 30 ML UDC GT SCH (09:52)
[2016-07-05] MEDS: GABAPENTIN 600 MG TABLET GT SCH ×3 (09:52→17:00)
[2016-07-05] MEDS: POLYETHYLENE GLYCOL 3350 17 GM POWD.PACK GT SCH (09:52)
[2016-07-05] MEDS: MULTIVIT, IRON, MIN NO. 8, FA 1 TAB GT SCH (09:52)
[2016-07-05] MEDS: MINERAL OIL/PETROL OINT 396 GM JAR TP SCH ×3 (13:00→17:00)
--- NOTE | 2016-07-05 13:56 | NUR ---
OT Layla from [facility] came to see the patient. [id number] Vilma was present. OT was here to see which technology resident can use. Time spent with patient was over an hour and a half. Per Vilma, Layla will send her a report about her findings and Vilma will update the social services specialist.
[2016-07-05] MEDS: HYDROCODONE/APAP 10/325MG 1 EA TABLET GT SCH ×2 (14:00→21:18)
[2016-07-05] MEDS: GENTAMICIN 0.1% OINT 15 GM TUBE TP SCH ×4 (14:30→21:54)
[2016-07-05] MEDS: HYDROGEN PEROXIDE 480 ML BOTTLE TP SCH ×2 (14:30→21:54)
[2016-07-05] MEDS: CLOTRIMAZOLE/BETAMETASONE DIPROPIONATE 15 GM TUBE TP SCH ×2 (14:30→21:54)
[2016-07-05] MEDS: Z GUARD REMEDY 4 OZ OINT TP SCH ×4 (14:30→21:54)
[2016-07-05] MEDS: HYDROGEL DRESSING 90 GM TUBE TP SCH ×2 (14:30→21:54)
[2016-07-05 19:45] VITALS: BP 119/72
[2016-07-05] MEDS: ATORVASTATIN CALCIUM 20MG TABLET GT SCH (21:18)
[2016-07-05] MEDS: ENOXAPARIN SODIUM 40 MG/0.4 ML DISP.SYRIN SQ SCH (21:18)
[2016-07-06 07:45] VITALS: BP 106/67
[2016-07-06] MEDS: CLOTRIMAZOLE/BETAMETASONE DIPROPIONATE 15 GM TUBE TP SCH ×2 (09:00→21:41)
[2016-07-06] MEDS: ACIDOPHILUS/BULGARICUS 1 EACH TAB.CHEW GT SCH ×3 (09:55→17:56)
[2016-07-06] MEDS: CRANBERRY GT SCH (09:55)
[2016-07-06] MEDS: FAMOTIDINE (20 MG) 20 MG TABLET GT SCH ×2 (09:57→21:11)
[2016-07-06] MEDS: BACLOFEN (10 MG) 10 MG TABLET GT SCH ×4 (09:57→21:10)
[2016-07-06] MEDS: HYDROCODONE/APAP 10/325MG 1 EA TABLET GT SCH ×2 (09:57→21:11)
[2016-07-06] MEDS: METOPROLOL TARTRATE 25 MG TABLET GT SCH ×2 (09:57→17:56)
[2016-07-06] MEDS: ESCITALOPRAM OXALATE (10 MG) 10 MG TABLET GT SCH (09:57)
[2016-07-06] MEDS: CLOPIDOGREL BISULFATE 75 MG TABLET GT SCH (09:57)
[2016-07-06] MEDS: GABAPENTIN 600 MG TABLET GT SCH ×3 (09:57→17:56)
[2016-07-06] MEDS: POLYETHYLENE GLYCOL 3350 17 GM POWD.PACK GT SCH (09:57)
[2016-07-06] MEDS: PROSOURCE / PROSTAT (PYXIS) 30 ML UDC GT SCH (09:58)
[2016-07-06] MEDS: ASCORBIC ACID 500 MG TABLET GT SCH ×2 (09:58→17:56)
[2016-07-06] MEDS: CALCITRIOL 0.25 MCG CAPSULE PO SCH (09:58)
[2016-07-06] MEDS: CALCIUM CARBONATE 500 MG TAB.CHEW GT SCH ×3 (09:58→17:56)
[2016-07-06] MEDS: MINERAL OIL/PETROL OINT 396 GM JAR TP SCH ×3 (09:58→17:56)
[2016-07-06] MEDS: MULTIVIT, IRON, MIN NO. 8, FA 1 TAB GT SCH (09:58)
[2016-07-06] MEDS: HYDROGEN PEROXIDE 480 ML BOTTLE TP SCH ×2 (09:59→21:41)
[2016-07-06] MEDS: HYDROGEL DRESSING 90 GM TUBE TP SCH ×3 (09:59→21:41)
[2016-07-06] MEDS: GENTAMICIN 0.1% OINT 15 GM TUBE TP SCH ×4 (09:59→21:41)
[2016-07-06] MEDS: Z GUARD REMEDY 4 OZ OINT TP SCH ×4 (09:59→21:41)
[2016-07-06 20:05] VITALS: BP 100/63
[2016-07-06] MEDS: ENOXAPARIN SODIUM 40 MG/0.4 ML DISP.SYRIN SQ SCH (21:11)
[2016-07-06] MEDS: ATORVASTATIN CALCIUM 20MG TABLET GT SCH (21:11)
[2016-07-07 07:41] VITALS: BP 121/67
[2016-07-07] MEDS: HYDROGEN PEROXIDE 480 ML BOTTLE TP SCH ×2 (09:00→20:38)
[2016-07-07] MEDS: Z GUARD REMEDY 4 OZ OINT TP SCH ×4 (09:00→20:38)
[2016-07-07] MEDS: HYDROGEL DRESSING 90 GM TUBE TP SCH ×4 (09:00→20:38)
[2016-07-07] MEDS: CLOTRIMAZOLE/BETAMETASONE DIPROPIONATE 15 GM TUBE TP SCH ×2 (09:00→20:38)
[2016-07-07] MEDS: GENTAMICIN 0.1% OINT 15 GM TUBE TP SCH ×5 (09:00→20:38)
[2016-07-07] MEDS: CRANBERRY GT SCH (09:53)
[2016-07-07] MEDS: ACIDOPHILUS/BULGARICUS 1 EACH TAB.CHEW GT SCH ×3 (09:53→16:51)
[2016-07-07] MEDS: BACLOFEN (10 MG) 10 MG TABLET GT SCH ×4 (09:55→20:37)
[2016-07-07] MEDS: ESCITALOPRAM OXALATE (10 MG) 10 MG TABLET GT SCH (09:55)
[2016-07-07] MEDS: FAMOTIDINE (20 MG) 20 MG TABLET GT SCH ×2 (09:56→20:37)
[2016-07-07] MEDS: CALCIUM CARBONATE 500 MG TAB.CHEW GT SCH ×3 (09:56→16:51)
[2016-07-07] MEDS: POLYETHYLENE GLYCOL 3350 17 GM POWD.PACK GT SCH (09:56)
[2016-07-07] MEDS: MULTIVIT, IRON, MIN NO. 8, FA 1 TAB GT SCH (09:56)
[2016-07-07] MEDS: HYDROCODONE/APAP 10/325MG 1 EA TABLET GT SCH ×2 (09:56→20:37)
[2016-07-07] MEDS: PROSOURCE / PROSTAT (PYXIS) 30 ML UDC GT SCH (09:56)
[2016-07-07] MEDS: CLOPIDOGREL BISULFATE 75 MG TABLET GT SCH (09:56)
[2016-07-07] MEDS: GABAPENTIN 600 MG TABLET GT SCH ×3 (09:56→16:51)
[2016-07-07] MEDS: METOPROLOL TARTRATE 25 MG TABLET GT SCH ×2 (09:56→16:43)
[2016-07-07] MEDS: CALCITRIOL 0.25 MCG CAPSULE PO SCH (09:57)
[2016-07-07] MEDS: MINERAL OIL/PETROL OINT 396 GM JAR TP SCH ×3 (09:57→16:51)
[2016-07-07] MEDS: ASCORBIC ACID 500 MG TABLET GT SCH ×2 (09:57→16:43)
--- NOTE | 2016-07-07 16:00 | NUR ---
Pt was seen by Dr. Rafiq Diaz. No new order.
[2016-07-07] MEDS: HYDROCODONE/APAP 10/325MG 1 EA TABLET GT PRN (17:18)
[2016-07-07] MEDS: ENOXAPARIN SODIUM 40 MG/0.4 ML DISP.SYRIN SQ SCH (20:37)
[2016-07-07 20:39] VITALS: BP 114/70
[2016-07-07] MEDS: MAGNESIUM HYDROXIDE 30 ML UDC GT PRN (21:16)
[2016-07-07] MEDS: ATORVASTATIN CALCIUM 20MG TABLET GT SCH (21:16)
[2016-07-08 08:39] VITALS: BP 117/79
[2016-07-08] MEDS: CLOTRIMAZOLE/BETAMETASONE DIPROPIONATE 15 GM TUBE TP SCH ×2 (09:00→20:29)
[2016-07-08] MEDS: Z GUARD REMEDY 4 OZ OINT TP SCH ×4 (09:00→20:29)
[2016-07-08] MEDS: HYDROGEL DRESSING 90 GM TUBE TP SCH ×4 (09:00→20:28)
[2016-07-08] MEDS: HYDROGEN PEROXIDE 480 ML BOTTLE TP SCH ×2 (09:00→20:29)
[2016-07-08] MEDS: GENTAMICIN 0.1% OINT 15 GM TUBE TP SCH ×6 (09:00→20:28)
[2016-07-08] MEDS: CRANBERRY GT SCH (09:14)
[2016-07-08] MEDS: ACIDOPHILUS/BULGARICUS 1 EACH TAB.CHEW GT SCH ×3 (09:14→17:16)
[2016-07-08] MEDS: ESCITALOPRAM OXALATE (10 MG) 10 MG TABLET GT SCH (09:15)
[2016-07-08] MEDS: BACLOFEN (10 MG) 10 MG TABLET GT SCH ×4 (09:15→20:27)
[2016-07-08] MEDS: POLYETHYLENE GLYCOL 3350 17 GM POWD.PACK GT SCH (09:16)
[2016-07-08] MEDS: METOPROLOL TARTRATE 25 MG TABLET GT SCH ×2 (09:16→17:16)
[2016-07-08] MEDS: HYDROCODONE/APAP 10/325MG 1 EA TABLET GT SCH ×2 (09:25→20:28)
[2016-07-08] MEDS: GABAPENTIN 600 MG TABLET GT SCH ×3 (09:25→17:16)
[2016-07-08] MEDS: CLOPIDOGREL BISULFATE 75 MG TABLET GT SCH (09:26)
[2016-07-08] MEDS: ASCORBIC ACID 500 MG TABLET GT SCH ×2 (09:26→17:17)
[2016-07-08] MEDS: CALCITRIOL 0.25 MCG CAPSULE PO SCH (09:26)
[2016-07-08] MEDS: FAMOTIDINE (20 MG) 20 MG TABLET GT SCH ×2 (09:26→20:27)
[2016-07-08] MEDS: PROSOURCE / PROSTAT (PYXIS) 30 ML UDC GT SCH (09:26)
[2016-07-08] MEDS: CALCIUM CARBONATE 500 MG TAB.CHEW GT SCH ×3 (09:26→17:16)
[2016-07-08] MEDS: MULTIVIT, IRON, MIN NO. 8, FA 1 TAB GT SCH (09:26)
[2016-07-08] MEDS: MINERAL OIL/PETROL OINT 396 GM JAR TP SCH ×3 (09:26→17:17)
--- NOTE | 2016-07-08 15:05 | NUR ---
INTERDISCIPLINARY PLAN OF CARE CONFERENCE was held today. Patient's ickhuh-mu-tbx Vilma unable to attend. New orders were reviewed. Dr. Ugarte and the interdisciplinary team reviewed the current plan of care in detail. Dr. Conroy is following for resident's eyelid mass. No new orders were given.
[2016-07-08] MEDS: ENOXAPARIN SODIUM 40 MG/0.4 ML DISP.SYRIN SQ SCH (20:28)
[2016-07-08] MEDS: ATORVASTATIN CALCIUM 20MG TABLET GT SCH (21:35)
[2016-07-08 21:42] VITALS: BP 98/70
[2016-07-09] MEDS: METHOCARBAMOL (750MG) 750 MG TABLET GT PRN (05:15)
[2016-07-09] MEDS: MAGNESIUM HYDROXIDE 30 ML UDC GT PRN (05:15)
[2016-07-09 07:38] VITALS: BP 122/57
[2016-07-09] MEDS: ACIDOPHILUS/BULGARICUS 1 EACH TAB.CHEW GT SCH ×3 (09:51→17:43)
[2016-07-09] MEDS: GABAPENTIN 600 MG TABLET GT SCH ×3 (09:51→17:43)
[2016-07-09] MEDS: METOPROLOL TARTRATE 25 MG TABLET GT SCH ×2 (09:51→17:43)
[2016-07-09] MEDS: FAMOTIDINE (20 MG) 20 MG TABLET GT SCH ×2 (09:51→21:00)
[2016-07-09] MEDS: MULTIVIT, IRON, MIN NO. 8, FA 1 TAB GT SCH (09:51)
[2016-07-09] MEDS: ASCORBIC ACID 500 MG TABLET GT SCH ×2 (09:51→17:43)
[2016-07-09] MEDS: CALCIUM CARBONATE 500 MG TAB.CHEW GT SCH ×3 (09:51→17:43)
[2016-07-09] MEDS: PROSOURCE / PROSTAT (PYXIS) 30 ML UDC GT SCH (09:51)
[2016-07-09] MEDS: CLOPIDOGREL BISULFATE 75 MG TABLET GT SCH (09:51)
[2016-07-09] MEDS: BACLOFEN (10 MG) 10 MG TABLET GT SCH ×4 (09:51→21:00)
[2016-07-09] MEDS: CRANBERRY GT SCH (09:51)
[2016-07-09] MEDS: ESCITALOPRAM OXALATE (10 MG) 10 MG TABLET GT SCH (09:51)
[2016-07-09] MEDS: POLYETHYLENE GLYCOL 3350 17 GM POWD.PACK GT SCH (09:51)
[2016-07-09] MEDS: CALCITRIOL 0.25 MCG CAPSULE PO SCH (09:52)
[2016-07-09] MEDS: HYDROCODONE/APAP 10/325MG 1 EA TABLET GT SCH ×2 (09:55→21:00)
[2016-07-09] MEDS: HYDROGEN PEROXIDE 480 ML BOTTLE TP SCH ×2 (11:00→21:00)
[2016-07-09] MEDS: Z GUARD REMEDY 4 OZ OINT TP SCH ×4 (11:00→21:00)
[2016-07-09] MEDS: MINERAL OIL/PETROL OINT 396 GM JAR TP SCH ×3 (11:00→17:43)
[2016-07-09] MEDS: CLOTRIMAZOLE/BETAMETASONE DIPROPIONATE 15 GM TUBE TP SCH ×2 (11:00→21:00)
[2016-07-09] MEDS: HYDROGEL DRESSING 90 GM TUBE TP SCH ×4 (11:00→21:00)
[2016-07-09] MEDS: GENTAMICIN 0.1% OINT 15 GM TUBE TP SCH ×6 (11:00→21:00)
[2016-07-09 20:53] VITALS: BP 103/69
[2016-07-09] MEDS: ENOXAPARIN SODIUM 40 MG/0.4 ML DISP.SYRIN SQ SCH (21:00)
[2016-07-09] MEDS: ATORVASTATIN CALCIUM 20MG TABLET GT SCH (22:03)
[2016-07-10 07:45] VITALS: BP 94/63
[2016-07-10] MEDS: METOPROLOL TARTRATE 25 MG TABLET GT SCH ×2 (09:00→16:55)
[2016-07-10] MEDS: HYDROCODONE/APAP 10/325MG 1 EA TABLET GT SCH ×2 (09:00→21:28)
[2016-07-10] MEDS: CRANBERRY GT SCH (09:14)
[2016-07-10] MEDS: BACLOFEN (10 MG) 10 MG TABLET GT SCH ×4 (09:14→21:27)
[2016-07-10] MEDS: ACIDOPHILUS/BULGARICUS 1 EACH TAB.CHEW GT SCH ×3 (09:14→16:55)
[2016-07-10] MEDS: ESCITALOPRAM OXALATE (10 MG) 10 MG TABLET GT SCH (09:14)
[2016-07-10] MEDS: GABAPENTIN 600 MG TABLET GT SCH ×3 (09:15→16:55)
[2016-07-10] MEDS: CLOPIDOGREL BISULFATE 75 MG TABLET GT SCH (09:15)
[2016-07-10] MEDS: FAMOTIDINE (20 MG) 20 MG TABLET GT SCH ×2 (09:15→21:28)
[2016-07-10] MEDS: POLYETHYLENE GLYCOL 3350 17 GM POWD.PACK GT SCH (09:15)
[2016-07-10] MEDS: CALCITRIOL 0.25 MCG CAPSULE PO SCH (09:16)
[2016-07-10] MEDS: MULTIVIT, IRON, MIN NO. 8, FA 1 TAB GT SCH (09:16)
[2016-07-10] MEDS: CALCIUM CARBONATE 500 MG TAB.CHEW GT SCH ×3 (09:16→16:55)
[2016-07-10] MEDS: HYDROGEL DRESSING 90 GM TUBE TP SCH ×4 (09:16→21:29)
[2016-07-10] MEDS: PROSOURCE / PROSTAT (PYXIS) 30 ML UDC GT SCH (09:16)
[2016-07-10] MEDS: GENTAMICIN 0.1% OINT 15 GM TUBE TP SCH ×6 (09:16→21:29)
[2016-07-10] MEDS: HYDROGEN PEROXIDE 480 ML BOTTLE TP SCH ×2 (09:16→21:29)
[2016-07-10] MEDS: MINERAL OIL/PETROL OINT 396 GM JAR TP SCH ×3 (09:16→16:56)
[2016-07-10] MEDS: ASCORBIC ACID 500 MG TABLET GT SCH ×2 (09:16→16:55)
[2016-07-10] MEDS: Z GUARD REMEDY 4 OZ OINT TP SCH ×4 (09:17→21:29)
[2016-07-10] MEDS: CLOTRIMAZOLE/BETAMETASONE DIPROPIONATE 15 GM TUBE TP SCH ×2 (09:17→21:29)
--- NOTE | 2016-07-10 14:12 | NUR ---
Seen and examined by Dr. Walker with no new order.
[2016-07-10 20:02] VITALS: BP 116/73
[2016-07-10] MEDS: ENOXAPARIN SODIUM 40 MG/0.4 ML DISP.SYRIN SQ SCH (21:28)
[2016-07-10] MEDS: ATORVASTATIN CALCIUM 20MG TABLET GT SCH (21:29)
[2016-07-11] MEDS: ACIDOPHILUS/BULGARICUS 1 EACH TAB.CHEW GT SCH ×3 (08:41→17:00)
[2016-07-11] MEDS: CRANBERRY GT SCH (08:41)
[2016-07-11] MEDS: HYDROCODONE/APAP 10/325MG 1 EA TABLET GT PRN (08:41)
[2016-07-11] MEDS: ESCITALOPRAM OXALATE (10 MG) 10 MG TABLET GT SCH (08:41)
[2016-07-11] MEDS: BACLOFEN (10 MG) 10 MG TABLET GT SCH ×4 (08:41→21:07)
[2016-07-11] MEDS: CALCIUM CARBONATE 500 MG TAB.CHEW GT SCH ×3 (08:42→17:00)
[2016-07-11] MEDS: FAMOTIDINE (20 MG) 20 MG TABLET GT SCH ×2 (08:42→21:08)
[2016-07-11] MEDS: MULTIVIT, IRON, MIN NO. 8, FA 1 TAB GT SCH (08:42)
[2016-07-11] MEDS: METOPROLOL TARTRATE 25 MG TABLET GT SCH ×2 (08:42→17:00)
[2016-07-11] MEDS: ASCORBIC ACID 500 MG TABLET GT SCH ×2 (08:42→17:00)
[2016-07-11] MEDS: POLYETHYLENE GLYCOL 3350 17 GM POWD.PACK GT SCH (08:42)
[2016-07-11] MEDS: CLOPIDOGREL BISULFATE 75 MG TABLET GT SCH (08:42)
[2016-07-11] MEDS: PROSOURCE / PROSTAT (PYXIS) 30 ML UDC GT SCH (08:42)
[2016-07-11] MEDS: GABAPENTIN 600 MG TABLET GT SCH ×3 (08:42→17:00)
[2016-07-11] MEDS: CALCITRIOL 0.25 MCG CAPSULE PO SCH (08:42)
[2016-07-11] MEDS: MINERAL OIL/PETROL OINT 396 GM JAR TP SCH ×3 (13:00→17:00)
[2016-07-11] MEDS: HYDROCODONE/APAP 10/325MG 1 EA TABLET GT SCH ×2 (14:30→21:08)
[2016-07-11] MEDS: Z GUARD REMEDY 4 OZ OINT TP SCH ×4 (15:30→21:35)
[2016-07-11] MEDS: CLOTRIMAZOLE/BETAMETASONE DIPROPIONATE 15 GM TUBE TP SCH ×2 (15:30→21:35)
[2016-07-11] MEDS: HYDROGEN PEROXIDE 480 ML BOTTLE TP SCH ×2 (15:30→21:35)
[2016-07-11] MEDS: HYDROGEL DRESSING 90 GM TUBE TP SCH ×4 (15:30→21:35)
[2016-07-11] MEDS: GENTAMICIN 0.1% OINT 15 GM TUBE TP SCH ×6 (15:30→21:35)
[2016-07-11 19:51] VITALS: BP 101/62
[2016-07-11] MEDS: ATORVASTATIN CALCIUM 20MG TABLET GT SCH (21:08)
[2016-07-11] MEDS: ENOXAPARIN SODIUM 40 MG/0.4 ML DISP.SYRIN SQ SCH (21:08)
[2016-07-12] MEDS: HYDROCODONE/APAP 10/325MG 1 EA TABLET GT PRN (08:36)
[2016-07-12] MEDS: ESCITALOPRAM OXALATE (10 MG) 10 MG TABLET GT SCH (08:37)
[2016-07-12] MEDS: BACLOFEN (10 MG) 10 MG TABLET GT SCH ×4 (08:37→21:06)
[2016-07-12] MEDS: CRANBERRY GT SCH (08:37)
[2016-07-12] MEDS: ACIDOPHILUS/BULGARICUS 1 EACH TAB.CHEW GT SCH ×3 (08:37→17:00)
[2016-07-12] MEDS: CLOPIDOGREL BISULFATE 75 MG TABLET GT SCH (08:38)
[2016-07-12] MEDS: PROSOURCE / PROSTAT (PYXIS) 30 ML UDC GT SCH (08:38)
[2016-07-12] MEDS: CALCITRIOL 0.25 MCG CAPSULE PO SCH (08:38)
[2016-07-12] MEDS: POLYETHYLENE GLYCOL 3350 17 GM POWD.PACK GT SCH (08:38)
[2016-07-12] MEDS: CALCIUM CARBONATE 500 MG TAB.CHEW GT SCH ×3 (08:38→17:00)
[2016-07-12] MEDS: ASCORBIC ACID 500 MG TABLET GT SCH ×2 (08:38→17:00)
[2016-07-12] MEDS: METOPROLOL TARTRATE 25 MG TABLET GT SCH ×2 (08:38→17:00)
[2016-07-12] MEDS: MULTIVIT, IRON, MIN NO. 8, FA 1 TAB GT SCH (08:38)
[2016-07-12] MEDS: GABAPENTIN 600 MG TABLET GT SCH ×3 (08:38→17:00)
[2016-07-12] MEDS: FAMOTIDINE (20 MG) 20 MG TABLET GT SCH ×2 (08:38→21:11)
[2016-07-12] MEDS: HYDROCODONE/APAP 10/325MG 1 EA TABLET GT SCH ×2 (09:00→21:11)
[2016-07-12] MEDS: MINERAL OIL/PETROL OINT 396 GM JAR TP SCH ×3 (13:00→17:00)
[2016-07-12] MEDS: Z GUARD REMEDY 4 OZ OINT TP SCH ×4 (15:30→21:13)
[2016-07-12] MEDS: HYDROGEL DRESSING 90 GM TUBE TP SCH ×4 (15:30→21:12)
[2016-07-12] MEDS: GENTAMICIN 0.1% OINT 15 GM TUBE TP SCH ×6 (15:30→21:13)
[2016-07-12] MEDS: CLOTRIMAZOLE/BETAMETASONE DIPROPIONATE 15 GM TUBE TP SCH ×2 (15:30→21:12)
[2016-07-12] MEDS: HYDROGEN PEROXIDE 480 ML BOTTLE TP SCH ×2 (15:30→21:12)
[2016-07-12 19:28] VITALS: BP 114/64
--- NOTE | 2016-07-12 19:31 | NUR ---
[place] administered at 1445 prior to wound treatment. Clarification not given at 0900. Reassessed one hour post administration, noted effective, 0/10.
[2016-07-12] MEDS: ENOXAPARIN SODIUM 40 MG/0.4 ML DISP.SYRIN SQ SCH (21:12)
[2016-07-12] MEDS: ATORVASTATIN CALCIUM 20MG TABLET GT SCH (21:13)
[2016-07-13 07:57] VITALS: BP 127/82
[2016-07-13] MEDS: MINERAL OIL/PETROL OINT 396 GM JAR TP SCH ×3 (09:00→16:32)
[2016-07-13] MEDS: ESCITALOPRAM OXALATE (10 MG) 10 MG TABLET GT SCH (09:00)
[2016-07-13] MEDS: ACIDOPHILUS/BULGARICUS 1 EACH TAB.CHEW GT SCH ×3 (09:00→16:31)
[2016-07-13] MEDS: PROSOURCE / PROSTAT (PYXIS) 30 ML UDC GT SCH (09:00)
[2016-07-13] MEDS: FAMOTIDINE (20 MG) 20 MG TABLET GT SCH ×2 (09:00→21:08)
[2016-07-13] MEDS: ASCORBIC ACID 500 MG TABLET GT SCH ×2 (09:00→16:32)
[2016-07-13] MEDS: CALCITRIOL 0.25 MCG CAPSULE PO SCH (09:00)
[2016-07-13] MEDS: CLOTRIMAZOLE/BETAMETASONE DIPROPIONATE 15 GM TUBE TP SCH ×2 (09:00→21:32)
[2016-07-13] MEDS: HYDROGEL DRESSING 90 GM TUBE TP SCH ×4 (09:00→21:32)
[2016-07-13] MEDS: CRANBERRY GT SCH (09:00)
[2016-07-13] MEDS: CALCIUM CARBONATE 500 MG TAB.CHEW GT SCH ×3 (09:00→16:32)
[2016-07-13] MEDS: METOPROLOL TARTRATE 25 MG TABLET GT SCH ×2 (09:00→16:32)
[2016-07-13] MEDS: GENTAMICIN 0.1% OINT 15 GM TUBE TP SCH ×6 (09:00→21:32)
[2016-07-13] MEDS: CLOPIDOGREL BISULFATE 75 MG TABLET GT SCH (09:00)
[2016-07-13] MEDS: HYDROGEN PEROXIDE 480 ML BOTTLE TP SCH ×2 (09:00→21:32)
[2016-07-13] MEDS: Z GUARD REMEDY 4 OZ OINT TP SCH ×4 (09:00→21:32)
[2016-07-13] MEDS: BACLOFEN (10 MG) 10 MG TABLET GT SCH ×4 (09:00→21:08)
[2016-07-13] MEDS: MULTIVIT, IRON, MIN NO. 8, FA 1 TAB GT SCH (09:00)
[2016-07-13] MEDS: HYDROCODONE/APAP 10/325MG 1 EA TABLET GT SCH ×2 (09:00→21:08)
[2016-07-13] MEDS: GABAPENTIN 600 MG TABLET GT SCH ×3 (09:00→16:32)
[2016-07-13] MEDS: POLYETHYLENE GLYCOL 3350 17 GM POWD.PACK GT SCH (09:00)
[2016-07-13] MEDS: METHOCARBAMOL (750MG) 750 MG TABLET GT PRN (14:15)
[2016-07-13] MEDS: HYDROCODONE/APAP 10/325MG 1 EA TABLET GT PRN (14:16)
[2016-07-13 20:06] VITALS: BP 99/54
[2016-07-13] MEDS: ATORVASTATIN CALCIUM 20MG TABLET GT SCH (21:09)
[2016-07-13] MEDS: ENOXAPARIN SODIUM 40 MG/0.4 ML DISP.SYRIN SQ SCH (21:09)
[2016-07-14 07:45] VITALS: BP 103/52
[2016-07-14] MEDS: ESCITALOPRAM OXALATE (10 MG) 10 MG TABLET GT SCH (08:47)
[2016-07-14] MEDS: ACIDOPHILUS/BULGARICUS 1 EACH TAB.CHEW GT SCH ×3 (08:47→16:35)
[2016-07-14] MEDS: CRANBERRY GT SCH (08:47)
[2016-07-14] MEDS: BACLOFEN (10 MG) 10 MG TABLET GT SCH ×4 (08:47→21:26)
[2016-07-14] MEDS: CLOPIDOGREL BISULFATE 75 MG TABLET GT SCH (08:48)
[2016-07-14] MEDS: GABAPENTIN 600 MG TABLET GT SCH ×3 (08:48→16:36)
[2016-07-14] MEDS: METOPROLOL TARTRATE 25 MG TABLET GT SCH ×2 (08:48→16:36)
[2016-07-14] MEDS: POLYETHYLENE GLYCOL 3350 17 GM POWD.PACK GT SCH (08:48)
[2016-07-14] MEDS: FAMOTIDINE (20 MG) 20 MG TABLET GT SCH ×2 (08:48→21:26)
[2016-07-14] MEDS: HYDROCODONE/APAP 10/325MG 1 EA TABLET GT SCH ×2 (08:48→21:00)
[2016-07-14] MEDS: PROSOURCE / PROSTAT (PYXIS) 30 ML UDC GT SCH (08:49)
[2016-07-14] MEDS: ASCORBIC ACID 500 MG TABLET GT SCH ×2 (08:49→16:36)
[2016-07-14] MEDS: MULTIVIT, IRON, MIN NO. 8, FA 1 TAB GT SCH (08:49)
[2016-07-14] MEDS: CALCIUM CARBONATE 500 MG TAB.CHEW GT SCH ×3 (08:49→16:36)
[2016-07-14] MEDS: CALCITRIOL 0.25 MCG CAPSULE PO SCH (08:49)
[2016-07-14] MEDS: GENTAMICIN 0.1% OINT 15 GM TUBE TP SCH ×6 (09:00→21:27)
[2016-07-14] MEDS: MINERAL OIL/PETROL OINT 396 GM JAR TP SCH ×3 (09:00→16:36)
[2016-07-14] MEDS: Z GUARD REMEDY 4 OZ OINT TP SCH ×4 (09:00→21:28)
[2016-07-14] MEDS: CLOTRIMAZOLE/BETAMETASONE DIPROPIONATE 15 GM TUBE TP SCH ×2 (09:00→21:27)
[2016-07-14] MEDS: HYDROGEL DRESSING 90 GM TUBE TP SCH ×4 (09:00→21:27)
[2016-07-14] MEDS: HYDROGEN PEROXIDE 480 ML BOTTLE TP SCH ×2 (09:00→21:27)
[2016-07-14] MEDS: HYDROCODONE/APAP 10/325MG 1 EA TABLET GT PRN (16:06)
--- NOTE | 2016-07-14 17:00 | NUR ---
Seen by Dr. Rafiq Diaz. No new order at this time.
[2016-07-14 19:49] VITALS: BP 99/63
[2016-07-14] MEDS: ENOXAPARIN SODIUM 40 MG/0.4 ML DISP.SYRIN SQ SCH (21:27)
[2016-07-14] MEDS: ATORVASTATIN CALCIUM 20MG TABLET GT SCH (21:28)
[2016-07-15 07:49] VITALS: BP 152/62
[2016-07-15] MEDS: Z GUARD REMEDY 4 OZ OINT TP SCH ×4 (09:00→21:22)
[2016-07-15] MEDS: CLOTRIMAZOLE/BETAMETASONE DIPROPIONATE 15 GM TUBE TP SCH ×2 (09:00→21:22)
[2016-07-15] MEDS: GENTAMICIN 0.1% OINT 15 GM TUBE TP SCH ×6 (09:00→21:22)
[2016-07-15] MEDS: HYDROGEL DRESSING 90 GM TUBE TP SCH ×4 (09:00→21:21)
[2016-07-15] MEDS: HYDROGEN PEROXIDE 480 ML BOTTLE TP SCH ×2 (09:00→21:22)
[2016-07-15] MEDS: CRANBERRY GT SCH (09:11)
[2016-07-15] MEDS: ESCITALOPRAM OXALATE (10 MG) 10 MG TABLET GT SCH (09:11)
[2016-07-15] MEDS: BACLOFEN (10 MG) 10 MG TABLET GT SCH ×4 (09:11→21:20)
[2016-07-15] MEDS: ACIDOPHILUS/BULGARICUS 1 EACH TAB.CHEW GT SCH ×3 (09:11→16:50)
[2016-07-15] MEDS: POLYETHYLENE GLYCOL 3350 17 GM POWD.PACK GT SCH (09:12)
[2016-07-15] MEDS: METOPROLOL TARTRATE 25 MG TABLET GT SCH ×2 (09:12→16:50)
[2016-07-15] MEDS: MULTIVIT, IRON, MIN NO. 8, FA 1 TAB GT SCH (09:12)
[2016-07-15] MEDS: FAMOTIDINE (20 MG) 20 MG TABLET GT SCH ×2 (09:12→21:21)
[2016-07-15] MEDS: CALCITRIOL 0.25 MCG CAPSULE PO SCH (09:12)
[2016-07-15] MEDS: PROSOURCE / PROSTAT (PYXIS) 30 ML UDC GT SCH (09:12)
[2016-07-15] MEDS: MINERAL OIL/PETROL OINT 396 GM JAR TP SCH ×3 (09:12→16:50)
[2016-07-15] MEDS: CALCIUM CARBONATE 500 MG TAB.CHEW GT SCH ×3 (09:12→16:50)
[2016-07-15] MEDS: GABAPENTIN 600 MG TABLET GT SCH ×3 (09:12→16:50)
[2016-07-15] MEDS: HYDROCODONE/APAP 10/325MG 1 EA TABLET GT SCH ×2 (09:12→21:21)
[2016-07-15] MEDS: CLOPIDOGREL BISULFATE 75 MG TABLET GT SCH (09:12)
[2016-07-15] MEDS: ASCORBIC ACID 500 MG TABLET GT SCH ×2 (09:12→16:50)
[2016-07-15] MEDS: METHOCARBAMOL (750MG) 750 MG TABLET GT PRN (14:59)
[2016-07-15 19:20] VITALS: BP 103/64
[2016-07-15] MEDS: ENOXAPARIN SODIUM 40 MG/0.4 ML DISP.SYRIN SQ SCH (21:21)
[2016-07-15] MEDS: ATORVASTATIN CALCIUM 20MG TABLET GT SCH (21:22)
[2016-07-16] MEDS: HYDROCODONE/APAP 10/325MG 1 EA TABLET GT PRN ×2 (00:54→05:58)
[2016-07-16 07:34] VITALS: BP 114/78
[2016-07-16] MEDS: CALCIUM CARBONATE 500 MG TAB.CHEW GT SCH ×3 (09:00→17:26)
[2016-07-16] MEDS: ACIDOPHILUS/BULGARICUS 1 EACH TAB.CHEW GT SCH ×3 (09:00→17:26)
[2016-07-16] MEDS: CRANBERRY GT SCH (09:00)
[2016-07-16] MEDS: CALCITRIOL 0.25 MCG CAPSULE PO SCH (09:00)
[2016-07-16] MEDS: CLOPIDOGREL BISULFATE 75 MG TABLET GT SCH (09:00)
[2016-07-16] MEDS: POLYETHYLENE GLYCOL 3350 17 GM POWD.PACK GT SCH (09:00)
[2016-07-16] MEDS: BACLOFEN (10 MG) 10 MG TABLET GT SCH ×4 (09:00→20:51)
[2016-07-16] MEDS: FAMOTIDINE (20 MG) 20 MG TABLET GT SCH ×2 (09:00→20:52)
[2016-07-16] MEDS: ESCITALOPRAM OXALATE (10 MG) 10 MG TABLET GT SCH (09:00)
[2016-07-16] MEDS: GABAPENTIN 600 MG TABLET GT SCH ×3 (09:00→17:26)
[2016-07-16] MEDS: MULTIVIT, IRON, MIN NO. 8, FA 1 TAB GT SCH (09:00)
[2016-07-16] MEDS: METOPROLOL TARTRATE 25 MG TABLET GT SCH ×2 (09:00→17:26)
[2016-07-16] MEDS: ASCORBIC ACID 500 MG TABLET GT SCH ×2 (09:00→17:26)
[2016-07-16] MEDS: PROSOURCE / PROSTAT (PYXIS) 30 ML UDC GT SCH (09:00)
[2016-07-16] MEDS: HYDROCODONE/APAP 10/325MG 1 EA TABLET GT SCH ×2 (10:15→21:00)
[2016-07-16] MEDS: CLOTRIMAZOLE/BETAMETASONE DIPROPIONATE 15 GM TUBE TP SCH ×2 (11:15→20:55)
[2016-07-16] MEDS: HYDROGEN PEROXIDE 480 ML BOTTLE TP SCH ×2 (11:15→20:54)
[2016-07-16] MEDS: MINERAL OIL/PETROL OINT 396 GM JAR TP SCH ×3 (11:15→17:26)
[2016-07-16] MEDS: HYDROGEL DRESSING 90 GM TUBE TP SCH ×4 (11:15→20:54)
[2016-07-16] MEDS: Z GUARD REMEDY 4 OZ OINT TP SCH ×4 (11:15→20:55)
[2016-07-16] MEDS: GENTAMICIN 0.1% OINT 15 GM TUBE TP SCH ×6 (11:15→20:54)
[2016-07-16 20:12] VITALS: BP 108/72
[2016-07-16] MEDS: ENOXAPARIN SODIUM 40 MG/0.4 ML DISP.SYRIN SQ SCH (20:52)
[2016-07-16] MEDS: ATORVASTATIN CALCIUM 20MG TABLET GT SCH (22:00)
[2016-07-17] MEDS: HYDROCODONE/APAP 10/325MG 1 EA TABLET GT PRN ×2 (04:03→13:53)
[2016-07-17 07:58] VITALS: BP 121/62
[2016-07-17] MEDS: MINERAL OIL/PETROL OINT 396 GM JAR TP SCH ×3 (09:00→17:48)
[2016-07-17] MEDS: MULTIVIT, IRON, MIN NO. 8, FA 1 TAB GT SCH (09:00)
[2016-07-17] MEDS: HYDROGEN PEROXIDE 480 ML BOTTLE TP SCH ×2 (09:00→21:11)
[2016-07-17] MEDS: GABAPENTIN 600 MG TABLET GT SCH ×3 (09:00→17:48)
[2016-07-17] MEDS: POLYETHYLENE GLYCOL 3350 17 GM POWD.PACK GT SCH (09:00)
[2016-07-17] MEDS: CALCIUM CARBONATE 500 MG TAB.CHEW GT SCH ×3 (09:00→17:48)
[2016-07-17] MEDS: GENTAMICIN 0.1% OINT 15 GM TUBE TP SCH ×6 (09:00→21:11)
[2016-07-17] MEDS: ACIDOPHILUS/BULGARICUS 1 EACH TAB.CHEW GT SCH ×3 (09:00→17:47)
[2016-07-17] MEDS: ASCORBIC ACID 500 MG TABLET GT SCH ×2 (09:00→17:48)
[2016-07-17] MEDS: BACLOFEN (10 MG) 10 MG TABLET GT SCH ×4 (09:00→21:09)
[2016-07-17] MEDS: HYDROCODONE/APAP 10/325MG 1 EA TABLET GT SCH ×2 (09:00→21:09)
[2016-07-17] MEDS: HYDROGEL DRESSING 90 GM TUBE TP SCH ×4 (09:00→21:11)
[2016-07-17] MEDS: CLOTRIMAZOLE/BETAMETASONE DIPROPIONATE 15 GM TUBE TP SCH ×2 (09:00→21:11)
[2016-07-17] MEDS: Z GUARD REMEDY 4 OZ OINT TP SCH ×4 (09:00→21:12)
[2016-07-17] MEDS: CALCITRIOL 0.25 MCG CAPSULE PO SCH (09:00)
[2016-07-17] MEDS: CRANBERRY GT SCH (09:00)
[2016-07-17] MEDS: CLOPIDOGREL BISULFATE 75 MG TABLET GT SCH (09:00)
[2016-07-17] MEDS: FAMOTIDINE (20 MG) 20 MG TABLET GT SCH ×2 (09:00→21:09)
[2016-07-17] MEDS: METOPROLOL TARTRATE 25 MG TABLET GT SCH ×2 (09:00→17:48)
[2016-07-17] MEDS: PROSOURCE / PROSTAT (PYXIS) 30 ML UDC GT SCH (09:00)
[2016-07-17] MEDS: ESCITALOPRAM OXALATE (10 MG) 10 MG TABLET GT SCH (09:00)
[2016-07-17 19:54] VITALS: BP 121/76
[2016-07-17] MEDS: ENOXAPARIN SODIUM 40 MG/0.4 ML DISP.SYRIN SQ SCH (21:11)
[2016-07-17] MEDS: ATORVASTATIN CALCIUM 20MG TABLET GT SCH (21:12)
[2016-07-18] MEDS: HYDROCODONE/APAP 10/325MG 1 EA TABLET GT PRN (07:41)
[2016-07-18 08:00] VITALS: BP 134/91
[2016-07-18] MEDS: ACIDOPHILUS/BULGARICUS 1 EACH TAB.CHEW GT SCH ×3 (08:20→17:22)
[2016-07-18] MEDS: ESCITALOPRAM OXALATE (10 MG) 10 MG TABLET GT SCH (08:20)
[2016-07-18] MEDS: BACLOFEN (10 MG) 10 MG TABLET GT SCH ×4 (08:20→21:04)
[2016-07-18] MEDS: CRANBERRY GT SCH (08:20)
[2016-07-18] MEDS: CALCITRIOL 0.25 MCG CAPSULE PO SCH (08:21)
[2016-07-18] MEDS: GABAPENTIN 600 MG TABLET GT SCH ×3 (08:21→17:23)
[2016-07-18] MEDS: CLOPIDOGREL BISULFATE 75 MG TABLET GT SCH (08:21)
[2016-07-18] MEDS: ASCORBIC ACID 500 MG TABLET GT SCH ×2 (08:21→17:23)
[2016-07-18] MEDS: PROSOURCE / PROSTAT (PYXIS) 30 ML UDC GT SCH (08:21)
[2016-07-18] MEDS: POLYETHYLENE GLYCOL 3350 17 GM POWD.PACK GT SCH (08:21)
[2016-07-18] MEDS: CALCIUM CARBONATE 500 MG TAB.CHEW GT SCH ×3 (08:21→17:23)
[2016-07-18] MEDS: MULTIVIT, IRON, MIN NO. 8, FA 1 TAB GT SCH (08:21)
[2016-07-18] MEDS: FAMOTIDINE (20 MG) 20 MG TABLET GT SCH ×2 (08:21→21:04)
[2016-07-18] MEDS: METOPROLOL TARTRATE 25 MG TABLET GT SCH ×2 (08:21→17:00)
[2016-07-18] MEDS: MINERAL OIL/PETROL OINT 396 GM JAR TP SCH ×3 (13:00→17:23)
[2016-07-18] MEDS: HYDROCODONE/APAP 10/325MG 1 EA TABLET GT SCH ×2 (14:27→21:04)
[2016-07-18] MEDS: HYDROGEL DRESSING 90 GM TUBE TP SCH ×4 (15:00→21:04)
[2016-07-18] MEDS: CLOTRIMAZOLE/BETAMETASONE DIPROPIONATE 15 GM TUBE TP SCH ×2 (15:00→21:05)
[2016-07-18] MEDS: Z GUARD REMEDY 4 OZ OINT TP SCH ×4 (15:00→21:05)
[2016-07-18] MEDS: GENTAMICIN 0.1% OINT 15 GM TUBE TP SCH ×6 (15:00→21:05)
[2016-07-18] MEDS: HYDROGEN PEROXIDE 480 ML BOTTLE TP SCH ×2 (15:00→21:05)
[2016-07-18 19:45] VITALS: BP 104/74
[2016-07-18] MEDS: ATORVASTATIN CALCIUM 20MG TABLET GT SCH (21:05)
[2016-07-18] MEDS: ENOXAPARIN SODIUM 40 MG/0.4 ML DISP.SYRIN SQ SCH (21:05)
[2016-07-19] MEDS: HYDROCODONE/APAP 10/325MG 1 EA TABLET GT PRN (05:43)
[2016-07-19 08:00] VITALS: BP 116/69
[2016-07-19] MEDS: ESCITALOPRAM OXALATE (10 MG) 10 MG TABLET GT SCH (08:15)
[2016-07-19] MEDS: BACLOFEN (10 MG) 10 MG TABLET GT SCH ×4 (08:15→20:53)
[2016-07-19] MEDS: ACIDOPHILUS/BULGARICUS 1 EACH TAB.CHEW GT SCH ×3 (08:15→17:49)
[2016-07-19] MEDS: CRANBERRY GT SCH (08:15)
[2016-07-19] MEDS: POLYETHYLENE GLYCOL 3350 17 GM POWD.PACK GT SCH (08:16)
[2016-07-19] MEDS: GABAPENTIN 600 MG TABLET GT SCH ×3 (08:16→17:49)
[2016-07-19] MEDS: FAMOTIDINE (20 MG) 20 MG TABLET GT SCH ×2 (08:16→20:54)
[2016-07-19] MEDS: MULTIVIT, IRON, MIN NO. 8, FA 1 TAB GT SCH (08:16)
[2016-07-19] MEDS: CLOPIDOGREL BISULFATE 75 MG TABLET GT SCH (08:16)
[2016-07-19] MEDS: METOPROLOL TARTRATE 25 MG TABLET GT SCH ×2 (08:16→17:00)
[2016-07-19] MEDS: PROSOURCE / PROSTAT (PYXIS) 30 ML UDC GT SCH (08:16)
[2016-07-19] MEDS: CALCITRIOL 0.25 MCG CAPSULE PO SCH (08:17)
[2016-07-19] MEDS: CALCIUM CARBONATE 500 MG TAB.CHEW GT SCH ×3 (08:17→17:49)
[2016-07-19] MEDS: ASCORBIC ACID 500 MG TABLET GT SCH ×2 (08:17→17:49)
[2016-07-19] MEDS: MINERAL OIL/PETROL OINT 396 GM JAR TP SCH ×3 (13:00→17:49)
[2016-07-19] MEDS: HYDROCODONE/APAP 10/325MG 1 EA TABLET GT SCH ×2 (14:00→21:05)
[2016-07-19] MEDS: HYDROGEL DRESSING 90 GM TUBE TP SCH ×4 (14:30→20:57)
[2016-07-19] MEDS: CLOTRIMAZOLE/BETAMETASONE DIPROPIONATE 15 GM TUBE TP SCH ×2 (14:30→20:57)
[2016-07-19] MEDS: Z GUARD REMEDY 4 OZ OINT TP SCH ×4 (14:30→20:58)
[2016-07-19] MEDS: HYDROGEN PEROXIDE 480 ML BOTTLE TP SCH ×2 (14:30→20:57)
[2016-07-19] MEDS: GENTAMICIN 0.1% OINT 15 GM TUBE TP SCH ×6 (14:30→20:57)
[2016-07-19 19:56] VITALS: BP 100/52
[2016-07-19] MEDS: ENOXAPARIN SODIUM 40 MG/0.4 ML DISP.SYRIN SQ SCH (21:02)
[2016-07-19] MEDS: ATORVASTATIN CALCIUM 20MG TABLET GT SCH (21:02)
[2016-07-20 07:48] VITALS: BP 124/74
[2016-07-20] MEDS: ESCITALOPRAM OXALATE (10 MG) 10 MG TABLET GT SCH (08:33)
[2016-07-20] MEDS: METOPROLOL TARTRATE 25 MG TABLET GT SCH ×2 (08:33→17:00)
[2016-07-20] MEDS: CLOPIDOGREL BISULFATE 75 MG TABLET GT SCH (08:33)
[2016-07-20] MEDS: FAMOTIDINE (20 MG) 20 MG TABLET GT SCH ×2 (08:33→20:28)
[2016-07-20] MEDS: GABAPENTIN 600 MG TABLET GT SCH ×3 (08:33→17:26)
[2016-07-20] MEDS: ACIDOPHILUS/BULGARICUS 1 EACH TAB.CHEW GT SCH ×3 (08:33→17:25)
[2016-07-20] MEDS: CRANBERRY GT SCH (08:33)
[2016-07-20] MEDS: BACLOFEN (10 MG) 10 MG TABLET GT SCH ×4 (08:33→20:28)
[2016-07-20] MEDS: POLYETHYLENE GLYCOL 3350 17 GM POWD.PACK GT SCH (08:33)
[2016-07-20] MEDS: ASCORBIC ACID 500 MG TABLET GT SCH ×2 (08:34→17:26)
[2016-07-20] MEDS: MINERAL OIL/PETROL OINT 396 GM JAR TP SCH ×3 (08:34→17:26)
[2016-07-20] MEDS: MULTIVIT, IRON, MIN NO. 8, FA 1 TAB GT SCH (08:34)
[2016-07-20] MEDS: CALCIUM CARBONATE 500 MG TAB.CHEW GT SCH ×3 (08:34→17:26)
[2016-07-20] MEDS: CALCITRIOL 0.25 MCG CAPSULE PO SCH (08:34)
[2016-07-20] MEDS: PROSOURCE / PROSTAT (PYXIS) 30 ML UDC GT SCH (08:34)
[2016-07-20] MEDS: HYDROCODONE/APAP 10/325MG 1 EA TABLET GT PRN (09:14)
[2016-07-20] MEDS: HYDROCODONE/APAP 10/325MG 1 EA TABLET GT SCH ×2 (13:17→20:28)
[2016-07-20] MEDS: HYDROGEN PEROXIDE 480 ML BOTTLE TP SCH ×2 (14:17→20:29)
[2016-07-20] MEDS: GENTAMICIN 0.1% OINT 15 GM TUBE TP SCH ×6 (14:17→20:29)
[2016-07-20] MEDS: HYDROGEL DRESSING 90 GM TUBE TP SCH ×4 (14:17→20:29)
[2016-07-20] MEDS: CLOTRIMAZOLE/BETAMETASONE DIPROPIONATE 15 GM TUBE TP SCH ×2 (14:17→20:29)
[2016-07-20] MEDS: Z GUARD REMEDY 4 OZ OINT TP SCH ×4 (14:17→20:29)
--- NOTE | 2016-07-20 19:00 | NUR ---
Patient is alert oriented. Able to make needs known. Total care provided. Medicated as ordered for pain and routine medications. All procedures explained before hand. Wound care provided. While patient was lying down on right side while wound care provided and he said "I cannot breath. " Skin color is pink no cyanosis noted, asked patient if ok to remove pmv to suction he said yes. Pmv removed with cool aerosol as ordered than patient stated "just put back the valve" "don't suction, I am fine now. " Patient allowed wound care and tolerated well. Two person assist and present while care provided. Patient stated after all care provided "You are my hero" "let me kiss the back of you hand" "If I could walk I would give you a hug" "I am going to keep you" "Thank you. " Patient not noted with any signs or symptoms of acute distress. All needs met and attended.
[2016-07-20 20:06] VITALS: BP 115/71
[2016-07-20] MEDS: ENOXAPARIN SODIUM 40 MG/0.4 ML DISP.SYRIN SQ SCH (20:28)
[2016-07-20] MEDS: ATORVASTATIN CALCIUM 20MG TABLET GT SCH (21:24)
[2016-07-21 08:06] VITALS: BP 137/86
[2016-07-21] MEDS: CLOTRIMAZOLE/BETAMETASONE DIPROPIONATE 15 GM TUBE TP SCH ×2 (09:43→21:00)
[2016-07-21] MEDS: HYDROGEN PEROXIDE 480 ML BOTTLE TP SCH ×2 (09:43→21:00)
[2016-07-21] MEDS: Z GUARD REMEDY 4 OZ OINT TP SCH ×4 (09:43→21:00)
[2016-07-21] MEDS: METOPROLOL TARTRATE 25 MG TABLET GT SCH ×2 (09:44→16:22)
[2016-07-21] MEDS: POLYETHYLENE GLYCOL 3350 17 GM POWD.PACK GT SCH (09:44)
[2016-07-21] MEDS: BACLOFEN (10 MG) 10 MG TABLET GT SCH ×4 (09:44→21:50)
[2016-07-21] MEDS: CRANBERRY GT SCH (09:44)
[2016-07-21] MEDS: ESCITALOPRAM OXALATE (10 MG) 10 MG TABLET GT SCH (09:44)
[2016-07-21] MEDS: GABAPENTIN 600 MG TABLET GT SCH ×3 (09:44→16:22)
[2016-07-21] MEDS: ACIDOPHILUS/BULGARICUS 1 EACH TAB.CHEW GT SCH ×3 (09:44→16:21)
[2016-07-21] MEDS: FAMOTIDINE (20 MG) 20 MG TABLET GT SCH ×2 (09:44→21:50)
[2016-07-21] MEDS: CALCITRIOL 0.25 MCG CAPSULE PO SCH (09:45)
[2016-07-21] MEDS: HYDROCODONE/APAP 10/325MG 1 EA TABLET GT SCH ×2 (09:45→21:00)
[2016-07-21] MEDS: MULTIVIT, IRON, MIN NO. 8, FA 1 TAB GT SCH (09:45)
[2016-07-21] MEDS: ASCORBIC ACID 500 MG TABLET GT SCH ×2 (09:45→16:22)
[2016-07-21] MEDS: CLOPIDOGREL BISULFATE 75 MG TABLET GT SCH (09:45)
[2016-07-21] MEDS: HYDROGEL DRESSING 90 GM TUBE TP SCH ×4 (09:45→21:00)
[2016-07-21] MEDS: MINERAL OIL/PETROL OINT 396 GM JAR TP SCH ×3 (09:45→17:43)
[2016-07-21] MEDS: PROSOURCE / PROSTAT (PYXIS) 30 ML UDC GT SCH (09:45)
[2016-07-21] MEDS: CALCIUM CARBONATE 500 MG TAB.CHEW GT SCH ×3 (09:45→16:22)
[2016-07-21] MEDS: GENTAMICIN 0.1% OINT 15 GM TUBE TP SCH ×6 (09:46→21:00)
--- NOTE | 2016-07-21 11:37 | NUR ---
Sent referral for stakes player to see the resident for tri-monthly check. Informed by Matheus from the wound center that Dr. Lovell is back on Monday. Charge nurse informed.
[2016-07-21] MEDS: HYDROCODONE/APAP 10/325MG 1 EA TABLET GT PRN (15:57)
[2016-07-21 19:48] VITALS: BP 92/58
[2016-07-21] MEDS: ENOXAPARIN SODIUM 40 MG/0.4 ML DISP.SYRIN SQ SCH (21:50)
[2016-07-21] MEDS: ATORVASTATIN CALCIUM 20MG TABLET GT SCH (22:00)
[2016-07-22 07:35] VITALS: BP 109/72
[2016-07-22] MEDS: HYDROCODONE/APAP 10/325MG 1 EA TABLET GT SCH ×2 (09:00→21:41)
[2016-07-22] MEDS: CRANBERRY GT SCH (09:00)
[2016-07-22] MEDS: CLOPIDOGREL BISULFATE 75 MG TABLET GT SCH (09:00)
[2016-07-22] MEDS: POLYETHYLENE GLYCOL 3350 17 GM POWD.PACK GT SCH (09:00)
[2016-07-22] MEDS: ACIDOPHILUS/BULGARICUS 1 EACH TAB.CHEW GT SCH ×3 (09:00→17:29)
[2016-07-22] MEDS: MULTIVIT, IRON, MIN NO. 8, FA 1 TAB GT SCH (09:00)
[2016-07-22] MEDS: ESCITALOPRAM OXALATE (10 MG) 10 MG TABLET GT SCH (09:00)
[2016-07-22] MEDS: BACLOFEN (10 MG) 10 MG TABLET GT SCH ×4 (09:00→21:08)
[2016-07-22] MEDS: PROSOURCE / PROSTAT (PYXIS) 30 ML UDC GT SCH (09:00)
[2016-07-22] MEDS: MINERAL OIL/PETROL OINT 396 GM JAR TP SCH ×3 (09:00→17:29)
[2016-07-22] MEDS: CALCITRIOL 0.25 MCG CAPSULE PO SCH (09:00)
[2016-07-22] MEDS: ASCORBIC ACID 500 MG TABLET GT SCH ×2 (09:00→17:29)
[2016-07-22] MEDS: CALCIUM CARBONATE 500 MG TAB.CHEW GT SCH ×3 (09:00→17:29)
[2016-07-22] MEDS: FAMOTIDINE (20 MG) 20 MG TABLET GT SCH ×2 (09:00→21:08)
[2016-07-22] MEDS: METOPROLOL TARTRATE 25 MG TABLET GT SCH ×2 (09:00→17:29)
[2016-07-22] MEDS: GABAPENTIN 600 MG TABLET GT SCH ×3 (09:00→17:29)
[2016-07-22] MEDS: GENTAMICIN 0.1% OINT 15 GM TUBE TP SCH ×6 (10:00→21:41)
[2016-07-22] MEDS: HYDROGEL DRESSING 90 GM TUBE TP SCH ×4 (10:00→21:41)
[2016-07-22] MEDS: HYDROGEN PEROXIDE 480 ML BOTTLE TP SCH ×2 (10:00→21:08)
[2016-07-22] MEDS: CLOTRIMAZOLE/BETAMETASONE DIPROPIONATE 15 GM TUBE TP SCH ×2 (10:00→21:41)
[2016-07-22] MEDS: Z GUARD REMEDY 4 OZ OINT TP SCH ×4 (10:00→21:41)
[2016-07-22] MEDS: HYDROCODONE/APAP 10/325MG 1 EA TABLET GT PRN (17:30)
[2016-07-22 19:44] VITALS: BP 136/79
[2016-07-22] MEDS: ATORVASTATIN CALCIUM 20MG TABLET GT SCH (21:09)
[2016-07-22] MEDS: ENOXAPARIN SODIUM 40 MG/0.4 ML DISP.SYRIN SQ SCH (21:09)
[2016-07-23] MEDS: ACETAMINOPHEN 650 MG/20 ML UDC- FOR SA PATIENTS ONLY GT PRN (06:11)
[2016-07-23 07:38] VITALS: BP 107/58
[2016-07-23] MEDS: ACIDOPHILUS/BULGARICUS 1 EACH TAB.CHEW GT SCH ×3 (08:29→16:52)
[2016-07-23] MEDS: CRANBERRY GT SCH (08:29)
[2016-07-23] MEDS: ASCORBIC ACID 500 MG TABLET GT SCH ×2 (08:32→16:53)
[2016-07-23] MEDS: GABAPENTIN 600 MG TABLET GT SCH ×3 (08:32→16:53)
[2016-07-23] MEDS: POLYETHYLENE GLYCOL 3350 17 GM POWD.PACK GT SCH (08:32)
[2016-07-23] MEDS: PROSOURCE / PROSTAT (PYXIS) 30 ML UDC GT SCH (08:32)
[2016-07-23] MEDS: BACLOFEN (10 MG) 10 MG TABLET GT SCH ×4 (08:32→21:19)
[2016-07-23] MEDS: MULTIVIT, IRON, MIN NO. 8, FA 1 TAB GT SCH (08:32)
[2016-07-23] MEDS: CLOPIDOGREL BISULFATE 75 MG TABLET GT SCH (08:32)
[2016-07-23] MEDS: ESCITALOPRAM OXALATE (10 MG) 10 MG TABLET GT SCH (08:32)
[2016-07-23] MEDS: FAMOTIDINE (20 MG) 20 MG TABLET GT SCH ×2 (08:32→21:19)
[2016-07-23] MEDS: CALCITRIOL 0.25 MCG CAPSULE PO SCH (08:32)
[2016-07-23] MEDS: CALCIUM CARBONATE 500 MG TAB.CHEW GT SCH ×3 (08:32→16:53)
[2016-07-23] MEDS: METOPROLOL TARTRATE 25 MG TABLET GT SCH ×2 (08:39→16:52)
[2016-07-23] MEDS: MINERAL OIL/PETROL OINT 396 GM JAR TP SCH ×3 (09:00→16:53)
[2016-07-23] MEDS: HYDROGEN PEROXIDE 480 ML BOTTLE TP SCH ×2 (09:00→21:21)
[2016-07-23] MEDS: Z GUARD REMEDY 4 OZ OINT TP SCH ×4 (09:00→21:21)
[2016-07-23] MEDS: GENTAMICIN 0.1% OINT 15 GM TUBE TP SCH ×6 (09:00→21:21)
[2016-07-23] MEDS: HYDROGEL DRESSING 90 GM TUBE TP SCH ×4 (09:00→21:21)
[2016-07-23] MEDS: CLOTRIMAZOLE/BETAMETASONE DIPROPIONATE 15 GM TUBE TP SCH ×2 (09:00→21:21)
[2016-07-23] MEDS: HYDROCODONE/APAP 10/325MG 1 EA TABLET GT SCH ×2 (10:00→21:19)
[2016-07-23] MEDS: HYDROCODONE/APAP 10/325MG 1 EA TABLET GT PRN (17:00)
[2016-07-23 20:11] VITALS: BP 101/62
[2016-07-23] MEDS: ATORVASTATIN CALCIUM 20MG TABLET GT SCH (21:21)
[2016-07-23] MEDS: ENOXAPARIN SODIUM 40 MG/0.4 ML DISP.SYRIN SQ SCH (21:21)
[2016-07-24] MEDS: HYDROCODONE/APAP 10/325MG 1 EA TABLET GT PRN ×2 (05:15→18:00)
[2016-07-24 07:35] VITALS: BP 109/70
[2016-07-24] MEDS: ASCORBIC ACID 500 MG TABLET GT SCH ×2 (09:00→17:16)
[2016-07-24] MEDS: ESCITALOPRAM OXALATE (10 MG) 10 MG TABLET GT SCH (09:00)
[2016-07-24] MEDS: BACLOFEN (10 MG) 10 MG TABLET GT SCH ×4 (09:00→20:53)
[2016-07-24] MEDS: CRANBERRY GT SCH (09:00)
[2016-07-24] MEDS: HYDROCODONE/APAP 10/325MG 1 EA TABLET GT SCH ×2 (09:00→20:53)
[2016-07-24] MEDS: ACIDOPHILUS/BULGARICUS 1 EACH TAB.CHEW GT SCH ×3 (09:00→17:16)
[2016-07-24] MEDS: GABAPENTIN 600 MG TABLET GT SCH ×3 (09:00→17:16)
[2016-07-24] MEDS: GENTAMICIN 0.1% OINT 15 GM TUBE TP SCH ×6 (09:00→20:54)
[2016-07-24] MEDS: HYDROGEL DRESSING 90 GM TUBE TP SCH ×4 (09:00→20:54)
[2016-07-24] MEDS: METOPROLOL TARTRATE 25 MG TABLET GT SCH ×2 (09:00→17:16)
[2016-07-24] MEDS: MULTIVIT, IRON, MIN NO. 8, FA 1 TAB GT SCH (09:00)
[2016-07-24] MEDS: PROSOURCE / PROSTAT (PYXIS) 30 ML UDC GT SCH (09:00)
[2016-07-24] MEDS: CALCIUM CARBONATE 500 MG TAB.CHEW GT SCH ×3 (09:00→17:16)
[2016-07-24] MEDS: CALCITRIOL 0.25 MCG CAPSULE PO SCH (09:00)
[2016-07-24] MEDS: HYDROGEN PEROXIDE 480 ML BOTTLE TP SCH ×2 (09:00→20:55)
[2016-07-24] MEDS: FAMOTIDINE (20 MG) 20 MG TABLET GT SCH ×2 (09:00→20:54)
[2016-07-24] MEDS: Z GUARD REMEDY 4 OZ OINT TP SCH ×4 (09:00→20:55)
[2016-07-24] MEDS: MINERAL OIL/PETROL OINT 396 GM JAR TP SCH ×3 (09:00→17:16)
[2016-07-24] MEDS: CLOPIDOGREL BISULFATE 75 MG TABLET GT SCH (09:00)
[2016-07-24] MEDS: CLOTRIMAZOLE/BETAMETASONE DIPROPIONATE 15 GM TUBE TP SCH ×2 (09:00→20:55)
[2016-07-24] MEDS: POLYETHYLENE GLYCOL 3350 17 GM POWD.PACK GT SCH (09:00)
[2016-07-24 20:02] VITALS: BP 122/76
[2016-07-24] MEDS: ENOXAPARIN SODIUM 40 MG/0.4 ML DISP.SYRIN SQ SCH (20:54)
[2016-07-24] MEDS: ATORVASTATIN CALCIUM 20MG TABLET GT SCH (21:09)
--- NOTE | 2016-07-25 06:00 | NUR ---
RN NOTES Received new order from Dr. Walker to renew txs to right buttock st IV ulcer and sacral st IV ulcer noted and carried out.
[2016-07-25 07:57] VITALS: BP 129/59
[2016-07-25 08:30] VITALS: BP 117/72
[2016-07-25] MEDS: HYDROCODONE/APAP 10/325MG 1 EA TABLET GT SCH ×2 (08:30→21:26)
[2016-07-25] MEDS: HYDROGEN PEROXIDE 480 ML BOTTLE TP SCH ×2 (09:30→21:27)
[2016-07-25] MEDS: HYDROGEL DRESSING 90 GM TUBE TP SCH ×8 (09:30→21:27)
[2016-07-25] MEDS: MINERAL OIL/PETROL OINT 396 GM JAR TP SCH ×3 (09:30→17:00)
[2016-07-25] MEDS: GENTAMICIN 0.1% OINT 15 GM TUBE TP SCH ×10 (09:30→21:27)
[2016-07-25] MEDS: Z GUARD REMEDY 4 OZ OINT TP SCH ×8 (09:30→21:28)
[2016-07-25] MEDS: CLOTRIMAZOLE/BETAMETASONE DIPROPIONATE 15 GM TUBE TP SCH ×2 (09:30→21:27)
[2016-07-25] MEDS: ESCITALOPRAM OXALATE (10 MG) 10 MG TABLET GT SCH (09:55)
[2016-07-25] MEDS: ACIDOPHILUS/BULGARICUS 1 EACH TAB.CHEW GT SCH ×3 (09:55→17:00)
[2016-07-25] MEDS: BACLOFEN (10 MG) 10 MG TABLET GT SCH ×4 (09:55→21:26)
[2016-07-25] MEDS: CRANBERRY GT SCH (09:55)
[2016-07-25] MEDS: METOPROLOL TARTRATE 25 MG TABLET GT SCH ×2 (09:56→17:00)
[2016-07-25] MEDS: MULTIVIT, IRON, MIN NO. 8, FA 1 TAB GT SCH (09:56)
[2016-07-25] MEDS: CALCIUM CARBONATE 500 MG TAB.CHEW GT SCH ×3 (09:56→17:00)
[2016-07-25] MEDS: FAMOTIDINE (20 MG) 20 MG TABLET GT SCH ×2 (09:56→21:26)
[2016-07-25] MEDS: CLOPIDOGREL BISULFATE 75 MG TABLET GT SCH (09:56)
[2016-07-25] MEDS: POLYETHYLENE GLYCOL 3350 17 GM POWD.PACK GT SCH (09:56)
[2016-07-25] MEDS: GABAPENTIN 600 MG TABLET GT SCH ×3 (09:56→17:00)
[2016-07-25] MEDS: ASCORBIC ACID 500 MG TABLET GT SCH ×2 (09:56→17:00)
[2016-07-25] MEDS: CALCITRIOL 0.25 MCG CAPSULE PO SCH (09:56)
[2016-07-25] MEDS: PROSOURCE / PROSTAT (PYXIS) 30 ML UDC GT SCH (09:56)
--- NOTE | 2016-07-25 17:15 | NUR ---
Noted skin tears 2 sites to left elbow, scant bleeding noted, no swelling noted, Dr. Walker came and made aware with new tx order, cleansed with NS, PAT DRY AND APPLY TRIPLE ATB ointment and cover with dry dressing daily x 14 days. Noted and carried out.
[2016-07-25] MEDS: NEOMY SULF/BACITRAC ZN/POLY 15 GM TUBE TP SCH ×2 (18:23→18:24)
[2016-07-25] MEDS: ENOXAPARIN SODIUM 40 MG/0.4 ML DISP.SYRIN SQ SCH (21:26)
[2016-07-25] MEDS: ATORVASTATIN CALCIUM 20MG TABLET GT SCH (21:28)
[2016-07-25 23:00] VITALS: BP 112/72
[2016-07-25 23:02] VITALS: BP 112/72
[2016-07-26 07:46] VITALS: BP 109/72
[2016-07-26] MEDS: ACIDOPHILUS/BULGARICUS 1 EACH TAB.CHEW GT SCH ×3 (09:23→17:00)
[2016-07-26] MEDS: CRANBERRY GT SCH (09:23)
[2016-07-26] MEDS: BACLOFEN (10 MG) 10 MG TABLET GT SCH ×4 (09:23→21:13)
[2016-07-26] MEDS: ESCITALOPRAM OXALATE (10 MG) 10 MG TABLET GT SCH (09:23)
[2016-07-26] MEDS: CALCITRIOL 0.25 MCG CAPSULE PO SCH (09:24)
[2016-07-26] MEDS: PROSOURCE / PROSTAT (PYXIS) 30 ML UDC GT SCH (09:24)
[2016-07-26] MEDS: FAMOTIDINE (20 MG) 20 MG TABLET GT SCH ×2 (09:24→21:13)
[2016-07-26] MEDS: POLYETHYLENE GLYCOL 3350 17 GM POWD.PACK GT SCH (09:24)
[2016-07-26] MEDS: METOPROLOL TARTRATE 25 MG TABLET GT SCH ×2 (09:24→17:00)
[2016-07-26] MEDS: HYDROCODONE/APAP 10/325MG 1 EA TABLET GT SCH ×2 (09:24→21:13)
[2016-07-26] MEDS: GABAPENTIN 600 MG TABLET GT SCH ×3 (09:24→17:00)
[2016-07-26] MEDS: CLOPIDOGREL BISULFATE 75 MG TABLET GT SCH (09:24)
[2016-07-26] MEDS: MULTIVIT, IRON, MIN NO. 8, FA 1 TAB GT SCH (09:24)
[2016-07-26] MEDS: ASCORBIC ACID 500 MG TABLET GT SCH ×2 (09:24→17:00)
[2016-07-26] MEDS: CALCIUM CARBONATE 500 MG TAB.CHEW GT SCH ×3 (09:24→17:00)
[2016-07-26] MEDS: MINERAL OIL/PETROL OINT 396 GM JAR TP SCH ×3 (10:00→17:00)
[2016-07-26] MEDS: CLOTRIMAZOLE/BETAMETASONE DIPROPIONATE 15 GM TUBE TP SCH ×2 (10:00→21:14)
[2016-07-26] MEDS: Z GUARD REMEDY 4 OZ OINT TP SCH ×4 (10:00→21:14)
[2016-07-26] MEDS: NEOMY SULF/BACITRAC ZN/POLY 15 GM TUBE TP SCH ×2 (10:00)
[2016-07-26] MEDS: GENTAMICIN 0.1% OINT 15 GM TUBE TP SCH ×5 (10:00→21:14)
[2016-07-26] MEDS: HYDROGEN PEROXIDE 480 ML BOTTLE TP SCH ×2 (10:00→21:14)
[2016-07-26] MEDS: HYDROGEL DRESSING 90 GM TUBE TP SCH ×4 (10:00→21:13)
[2016-07-26] MEDS: HYDROCODONE/APAP 10/325MG 1 EA TABLET GT PRN (14:00)
[2016-07-26 19:45] VITALS: BP 112/77
[2016-07-26] MEDS: ENOXAPARIN SODIUM 40 MG/0.4 ML DISP.SYRIN SQ SCH (21:13)
[2016-07-26] MEDS: ATORVASTATIN CALCIUM 20MG TABLET GT SCH (21:14)
[2016-07-27 07:38] VITALS: BP 109/75
[2016-07-27] MEDS: HYDROCODONE/APAP 10/325MG 1 EA TABLET GT PRN ×2 (08:12→16:42)
[2016-07-27] MEDS: ACIDOPHILUS/BULGARICUS 1 EACH TAB.CHEW GT SCH ×3 (08:16→16:41)
[2016-07-27] MEDS: GABAPENTIN 600 MG TABLET GT SCH ×3 (08:16→16:42)
[2016-07-27] MEDS: ESCITALOPRAM OXALATE (10 MG) 10 MG TABLET GT SCH (08:16)
[2016-07-27] MEDS: CRANBERRY GT SCH (08:16)
[2016-07-27] MEDS: METOPROLOL TARTRATE 25 MG TABLET GT SCH ×2 (08:16→16:41)
[2016-07-27] MEDS: POLYETHYLENE GLYCOL 3350 17 GM POWD.PACK GT SCH (08:16)
[2016-07-27] MEDS: BACLOFEN (10 MG) 10 MG TABLET GT SCH ×4 (08:16→20:50)
[2016-07-27] MEDS: FAMOTIDINE (20 MG) 20 MG TABLET GT SCH ×2 (08:16→20:50)
[2016-07-27] MEDS: CALCIUM CARBONATE 500 MG TAB.CHEW GT SCH ×3 (08:17→16:42)
[2016-07-27] MEDS: MINERAL OIL/PETROL OINT 396 GM JAR TP SCH ×3 (08:17→16:42)
[2016-07-27] MEDS: MULTIVIT, IRON, MIN NO. 8, FA 1 TAB GT SCH (08:17)
[2016-07-27] MEDS: ASCORBIC ACID 500 MG TABLET GT SCH ×2 (08:17→16:42)
[2016-07-27] MEDS: CLOPIDOGREL BISULFATE 75 MG TABLET GT SCH (08:17)
[2016-07-27] MEDS: PROSOURCE / PROSTAT (PYXIS) 30 ML UDC GT SCH (08:17)
[2016-07-27] MEDS: CALCITRIOL 0.25 MCG CAPSULE PO SCH (08:17)
[2016-07-27] MEDS: HYDROCODONE/APAP 10/325MG 1 EA TABLET GT SCH ×2 (10:56→21:51)
[2016-07-27] MEDS: HYDROGEL DRESSING 90 GM TUBE TP SCH ×4 (12:06→21:51)
[2016-07-27] MEDS: GENTAMICIN 0.1% OINT 15 GM TUBE TP SCH ×6 (12:06→21:52)
[2016-07-27] MEDS: Z GUARD REMEDY 4 OZ OINT TP SCH ×4 (12:07→21:53)
[2016-07-27] MEDS: HYDROGEN PEROXIDE 480 ML BOTTLE TP SCH ×2 (12:07→21:52)
[2016-07-27] MEDS: CLOTRIMAZOLE/BETAMETASONE DIPROPIONATE 15 GM TUBE TP SCH ×2 (12:07→21:52)
[2016-07-27] MEDS: NEOMY SULF/BACITRAC ZN/POLY 15 GM TUBE TP SCH ×2 (12:07)
[2016-07-27] MEDS: ENOXAPARIN SODIUM 40 MG/0.4 ML DISP.SYRIN SQ SCH (20:50)
[2016-07-27] MEDS: ATORVASTATIN CALCIUM 20MG TABLET GT SCH (21:53)
[2016-07-28 00:21] VITALS: BP 128/73
[2016-07-28 07:30] VITALS: BP 110/78
[2016-07-28] MEDS: CALCITRIOL 0.25 MCG CAPSULE PO SCH (09:44)
[2016-07-28] MEDS: GABAPENTIN 600 MG TABLET GT SCH ×3 (09:44→17:59)
[2016-07-28] MEDS: METOPROLOL TARTRATE 25 MG TABLET GT SCH ×2 (09:44→17:59)
[2016-07-28] MEDS: ASCORBIC ACID 500 MG TABLET GT SCH ×2 (09:44→17:59)
[2016-07-28] MEDS: ESCITALOPRAM OXALATE (10 MG) 10 MG TABLET GT SCH (09:44)
[2016-07-28] MEDS: BACLOFEN (10 MG) 10 MG TABLET GT SCH ×4 (09:44→21:16)
[2016-07-28] MEDS: PROSOURCE / PROSTAT (PYXIS) 30 ML UDC GT SCH (09:44)
[2016-07-28] MEDS: ACIDOPHILUS/BULGARICUS 1 EACH TAB.CHEW GT SCH ×3 (09:44→17:59)
[2016-07-28] MEDS: CLOPIDOGREL BISULFATE 75 MG TABLET GT SCH (09:44)
[2016-07-28] MEDS: FAMOTIDINE (20 MG) 20 MG TABLET GT SCH ×2 (09:44→21:17)
[2016-07-28] MEDS: MULTIVIT, IRON, MIN NO. 8, FA 1 TAB GT SCH (09:44)
[2016-07-28] MEDS: POLYETHYLENE GLYCOL 3350 17 GM POWD.PACK GT SCH (09:44)
[2016-07-28] MEDS: CRANBERRY GT SCH (09:44)
[2016-07-28] MEDS: HYDROCODONE/APAP 10/325MG 1 EA TABLET GT SCH ×2 (09:44→21:17)
[2016-07-28] MEDS: CALCIUM CARBONATE 500 MG TAB.CHEW GT SCH ×3 (09:44→17:59)
[2016-07-28] MEDS: MINERAL OIL/PETROL OINT 396 GM JAR TP SCH ×3 (09:45→17:59)
[2016-07-28] MEDS: HYDROGEN PEROXIDE 480 ML BOTTLE TP SCH ×2 (10:00→21:18)
[2016-07-28] MEDS: HYDROGEL DRESSING 90 GM TUBE TP SCH ×4 (10:00→21:17)
[2016-07-28] MEDS: Z GUARD REMEDY 4 OZ OINT TP SCH ×4 (10:00→21:18)
[2016-07-28] MEDS: GENTAMICIN 0.1% OINT 15 GM TUBE TP SCH ×6 (10:00→21:18)
[2016-07-28] MEDS: CLOTRIMAZOLE/BETAMETASONE DIPROPIONATE 15 GM TUBE TP SCH ×2 (10:00→21:18)
[2016-07-28] MEDS: NEOMY SULF/BACITRAC ZN/POLY 15 GM TUBE TP SCH ×2 (10:00)
[2016-07-28] MEDS: HYDROCODONE/APAP 10/325MG 1 EA TABLET GT PRN (18:00)
[2016-07-28] MEDS: ENOXAPARIN SODIUM 40 MG/0.4 ML DISP.SYRIN SQ SCH (21:17)
[2016-07-28] MEDS: ATORVASTATIN CALCIUM 20MG TABLET GT SCH (21:18)
[2016-07-29 01:29] VITALS: BP 100/61
[2016-07-29] MEDS: HYDROCODONE/APAP 10/325MG 1 EA TABLET GT PRN (04:56)
--- NOTE | 2016-07-29 06:12 | NUR ---
Noted sacral wound bleeding during wound care,apply pressure on the site,bleeding stopped.Will continue to monitor.Will endorsed to oncoming shift.
--- NOTE | 2016-07-29 07:24 | NUR ---
Social Service section of [facility] (1st quarter) completed. Resident is alert and was able to answer all questions asked. Resident understands need for placement at this time.
[2016-07-29 07:41] VITALS: BP 105/59
[2016-07-29] MEDS: MULTIVIT, IRON, MIN NO. 8, FA 1 TAB GT SCH (09:00)
[2016-07-29] MEDS: METOPROLOL TARTRATE 25 MG TABLET GT SCH ×2 (09:00→17:00)
[2016-07-29] MEDS: CLOPIDOGREL BISULFATE 75 MG TABLET GT SCH (09:00)
[2016-07-29] MEDS: BACLOFEN (10 MG) 10 MG TABLET GT SCH ×4 (09:00→21:56)
[2016-07-29] MEDS: FAMOTIDINE (20 MG) 20 MG TABLET GT SCH ×2 (09:00→21:58)
[2016-07-29] MEDS: POLYETHYLENE GLYCOL 3350 17 GM POWD.PACK GT SCH (09:00)
[2016-07-29] MEDS: PROSOURCE / PROSTAT (PYXIS) 30 ML UDC GT SCH (09:00)
[2016-07-29] MEDS: ESCITALOPRAM OXALATE (10 MG) 10 MG TABLET GT SCH (09:00)
[2016-07-29] MEDS: GABAPENTIN 600 MG TABLET GT SCH ×3 (09:00→17:00)
[2016-07-29] MEDS: ASCORBIC ACID 500 MG TABLET GT SCH ×2 (09:00→17:00)
[2016-07-29] MEDS: HYDROCODONE/APAP 10/325MG 1 EA TABLET GT SCH ×2 (09:00→21:56)
[2016-07-29] MEDS: CALCIUM CARBONATE 500 MG TAB.CHEW GT SCH ×3 (09:00→17:00)
[2016-07-29] MEDS: CALCITRIOL 0.25 MCG CAPSULE PO SCH (09:00)
[2016-07-29] MEDS: CRANBERRY GT SCH (09:00)
[2016-07-29] MEDS: ACIDOPHILUS/BULGARICUS 1 EACH TAB.CHEW GT SCH ×3 (09:00→17:00)
[2016-07-29] MEDS: GENTAMICIN 0.1% OINT 15 GM TUBE TP SCH ×6 (10:00→21:57)
[2016-07-29] MEDS: HYDROGEL DRESSING 90 GM TUBE TP SCH ×4 (10:00→21:56)
[2016-07-29] MEDS: CLOTRIMAZOLE/BETAMETASONE DIPROPIONATE 15 GM TUBE TP SCH ×2 (10:00→21:57)
[2016-07-29] MEDS: HYDROGEN PEROXIDE 480 ML BOTTLE TP SCH ×2 (10:00→21:57)
[2016-07-29] MEDS: Z GUARD REMEDY 4 OZ OINT TP SCH ×4 (10:00→21:57)
[2016-07-29] MEDS: MINERAL OIL/PETROL OINT 396 GM JAR TP SCH ×3 (10:00→17:00)
[2016-07-29] MEDS: NEOMY SULF/BACITRAC ZN/POLY 15 GM TUBE TP SCH ×2 (10:00)
--- NOTE | 2016-07-29 14:02 | NUR ---
IDT meeting held, family unable to attend. Current orders, new medications and treatments reviewed. MD made aware that it was reported by the night club manager that during treatment, sacral wound is bleeding a lot. MD did not want to hold Lovonex but to reinforce dressing if needed. Bleeding episode also noted during day shift dressing change but minimal. Continue to observe.
[2016-07-29 20:18] VITALS: BP 101/62
[2016-07-29] MEDS: ATORVASTATIN CALCIUM 20MG TABLET GT SCH (21:55)
[2016-07-29] MEDS: ENOXAPARIN SODIUM 40 MG/0.4 ML DISP.SYRIN SQ SCH (22:00)
[2016-07-30] MEDS: ACETAMINOPHEN 650 MG/20 ML UDC- FOR SA PATIENTS ONLY GT PRN ×2 (05:29→13:18)
[2016-07-30 07:31] VITALS: BP 114/69
[2016-07-30] MEDS: ESCITALOPRAM OXALATE (10 MG) 10 MG TABLET GT SCH (08:16)
[2016-07-30] MEDS: METOPROLOL TARTRATE 25 MG TABLET GT SCH ×2 (08:16→17:43)
[2016-07-30] MEDS: CRANBERRY GT SCH (08:16)
[2016-07-30] MEDS: FAMOTIDINE (20 MG) 20 MG TABLET GT SCH ×2 (08:16→21:08)
[2016-07-30] MEDS: BACLOFEN (10 MG) 10 MG TABLET GT SCH ×4 (08:16→21:08)
[2016-07-30] MEDS: POLYETHYLENE GLYCOL 3350 17 GM POWD.PACK GT SCH (08:16)
[2016-07-30] MEDS: PROSOURCE / PROSTAT (PYXIS) 30 ML UDC GT SCH (08:16)
[2016-07-30] MEDS: MULTIVIT, IRON, MIN NO. 8, FA 1 TAB GT SCH (08:16)
[2016-07-30] MEDS: CLOPIDOGREL BISULFATE 75 MG TABLET GT SCH (08:16)
[2016-07-30] MEDS: ACIDOPHILUS/BULGARICUS 1 EACH TAB.CHEW GT SCH ×3 (08:16→17:42)
[2016-07-30] MEDS: GABAPENTIN 600 MG TABLET GT SCH ×3 (08:16→17:43)
[2016-07-30] MEDS: MINERAL OIL/PETROL OINT 396 GM JAR TP SCH ×3 (08:17→17:43)
[2016-07-30] MEDS: CALCITRIOL 0.25 MCG CAPSULE PO SCH (08:17)
[2016-07-30] MEDS: ASCORBIC ACID 500 MG TABLET GT SCH ×2 (08:17→17:43)
[2016-07-30] MEDS: CALCIUM CARBONATE 500 MG TAB.CHEW GT SCH ×3 (08:17→17:43)
[2016-07-30] MEDS: HYDROCODONE/APAP 10/325MG 1 EA TABLET GT SCH ×2 (10:13→21:09)
[2016-07-30] MEDS: HYDROGEL DRESSING 90 GM TUBE TP SCH ×4 (11:00→21:09)
[2016-07-30] MEDS: CLOTRIMAZOLE/BETAMETASONE DIPROPIONATE 15 GM TUBE TP SCH ×2 (11:00→21:09)
[2016-07-30] MEDS: Z GUARD REMEDY 4 OZ OINT TP SCH ×4 (11:00→21:10)
[2016-07-30] MEDS: NEOMY SULF/BACITRAC ZN/POLY 15 GM TUBE TP SCH ×2 (11:00)
[2016-07-30] MEDS: HYDROGEN PEROXIDE 480 ML BOTTLE TP SCH ×2 (11:00→21:09)
[2016-07-30] MEDS: GENTAMICIN 0.1% OINT 15 GM TUBE TP SCH ×6 (11:00→21:09)
[2016-07-30 20:01] VITALS: BP 101/61
[2016-07-30] MEDS: ENOXAPARIN SODIUM 40 MG/0.4 ML DISP.SYRIN SQ SCH (21:09)
[2016-07-30] MEDS: ATORVASTATIN CALCIUM 20MG TABLET GT SCH (21:10)
[2016-07-31] MEDS: HYDROCODONE/APAP 10/325MG 1 EA TABLET GT PRN (03:21)
[2016-07-31 08:01] VITALS: BP 131/59
[2016-07-31] MEDS: POLYETHYLENE GLYCOL 3350 17 GM POWD.PACK GT SCH (09:00)
[2016-07-31] MEDS: HYDROGEN PEROXIDE 480 ML BOTTLE TP SCH ×2 (09:00→20:48)
[2016-07-31] MEDS: PROSOURCE / PROSTAT (PYXIS) 30 ML UDC GT SCH (09:00)
[2016-07-31] MEDS: ACIDOPHILUS/BULGARICUS 1 EACH TAB.CHEW GT SCH ×3 (09:00→16:16)
[2016-07-31] MEDS: METOPROLOL TARTRATE 25 MG TABLET GT SCH ×2 (09:00→16:16)
[2016-07-31] MEDS: ESCITALOPRAM OXALATE (10 MG) 10 MG TABLET GT SCH (09:00)
[2016-07-31] MEDS: HYDROGEL DRESSING 90 GM TUBE TP SCH ×4 (09:00→20:48)
[2016-07-31] MEDS: ASCORBIC ACID 500 MG TABLET GT SCH ×2 (09:00→16:15)
[2016-07-31] MEDS: MULTIVIT, IRON, MIN NO. 8, FA 1 TAB GT SCH (09:00)
[2016-07-31] MEDS: CLOPIDOGREL BISULFATE 75 MG TABLET GT SCH (09:00)
[2016-07-31] MEDS: NEOMY SULF/BACITRAC ZN/POLY 15 GM TUBE TP SCH ×2 (09:00)
[2016-07-31] MEDS: FAMOTIDINE (20 MG) 20 MG TABLET GT SCH ×2 (09:00→20:47)
[2016-07-31] MEDS: CRANBERRY GT SCH (09:00)
[2016-07-31] MEDS: GENTAMICIN 0.1% OINT 15 GM TUBE TP SCH ×6 (09:00→20:48)
[2016-07-31] MEDS: MINERAL OIL/PETROL OINT 396 GM JAR TP SCH ×3 (09:00→16:19)
[2016-07-31] MEDS: Z GUARD REMEDY 4 OZ OINT TP SCH ×4 (09:00→20:49)
[2016-07-31] MEDS: CLOTRIMAZOLE/BETAMETASONE DIPROPIONATE 15 GM TUBE TP SCH ×2 (09:00→20:48)
[2016-07-31] MEDS: GABAPENTIN 600 MG TABLET GT SCH ×3 (09:00→16:19)
[2016-07-31] MEDS: CALCITRIOL 0.25 MCG CAPSULE PO SCH (09:00)
[2016-07-31] MEDS: BACLOFEN (10 MG) 10 MG TABLET GT SCH ×4 (09:00→20:47)
[2016-07-31] MEDS: HYDROCODONE/APAP 10/325MG 1 EA TABLET GT SCH ×2 (09:00→20:47)
[2016-07-31] MEDS: CALCIUM CARBONATE 500 MG TAB.CHEW GT SCH ×3 (09:00→16:19)
[2016-07-31 20:08] VITALS: BP 127/74
[2016-07-31] MEDS: ENOXAPARIN SODIUM 40 MG/0.4 ML DISP.SYRIN SQ SCH (20:48)
[2016-07-31] MEDS: ATORVASTATIN CALCIUM 20MG TABLET GT SCH (21:57)
[2016-08-01 07:35] VITALS: BP 120/69
[2016-08-01] MEDS: ACIDOPHILUS/BULGARICUS 1 EACH TAB.CHEW GT SCH ×3 (07:54→17:58)
[2016-08-01] MEDS: ESCITALOPRAM OXALATE (10 MG) 10 MG TABLET GT SCH (07:54)
[2016-08-01] MEDS: BACLOFEN (10 MG) 10 MG TABLET GT SCH ×4 (07:54→20:52)
[2016-08-01] MEDS: CRANBERRY GT SCH (07:54)
[2016-08-01] MEDS: PROSOURCE / PROSTAT (PYXIS) 30 ML UDC GT SCH (07:55)
[2016-08-01] MEDS: POLYETHYLENE GLYCOL 3350 17 GM POWD.PACK GT SCH (07:55)
[2016-08-01] MEDS: METOPROLOL TARTRATE 25 MG TABLET GT SCH ×2 (07:55→17:59)
[2016-08-01] MEDS: GABAPENTIN 600 MG TABLET GT SCH ×3 (07:55→17:59)
[2016-08-01] MEDS: CLOPIDOGREL BISULFATE 75 MG TABLET GT SCH (07:55)
[2016-08-01] MEDS: FAMOTIDINE (20 MG) 20 MG TABLET GT SCH ×2 (07:55→20:52)
[2016-08-01] MEDS: CALCITRIOL 0.25 MCG CAPSULE PO SCH (07:56)
[2016-08-01] MEDS: CALCIUM CARBONATE 500 MG TAB.CHEW GT SCH ×3 (07:56→17:59)
[2016-08-01] MEDS: ASCORBIC ACID 500 MG TABLET GT SCH ×2 (07:56→17:59)
[2016-08-01] MEDS: MULTIVIT, IRON, MIN NO. 8, FA 1 TAB GT SCH (07:56)
[2016-08-01] MEDS: MINERAL OIL/PETROL OINT 396 GM JAR TP SCH ×3 (13:00→17:59)
[2016-08-01] MEDS: CLOTRIMAZOLE/BETAMETASONE DIPROPIONATE 15 GM TUBE TP SCH ×2 (15:00→20:53)
[2016-08-01] MEDS: Z GUARD REMEDY 4 OZ OINT TP SCH ×4 (15:00→20:54)
[2016-08-01] MEDS: HYDROGEN PEROXIDE 480 ML BOTTLE TP SCH ×2 (15:00→20:53)
[2016-08-01] MEDS: HYDROGEL DRESSING 90 GM TUBE TP SCH ×4 (15:00→20:53)
[2016-08-01] MEDS: NEOMY SULF/BACITRAC ZN/POLY 15 GM TUBE TP SCH ×2 (15:00)
[2016-08-01] MEDS: HYDROCODONE/APAP 10/325MG 1 EA TABLET GT SCH ×2 (15:00→20:52)
[2016-08-01] MEDS: GENTAMICIN 0.1% OINT 15 GM TUBE TP SCH ×6 (15:00→20:53)
[2016-08-01 20:04] VITALS: BP 128/72
[2016-08-01] MEDS: ENOXAPARIN SODIUM 40 MG/0.4 ML DISP.SYRIN SQ SCH (20:53)
[2016-08-01] MEDS: ATORVASTATIN CALCIUM 20MG TABLET GT SCH (22:26)
[2016-08-02 07:53] VITALS: BP 121/69
[2016-08-02] MEDS: BACLOFEN (10 MG) 10 MG TABLET GT SCH ×4 (09:00→20:33)
[2016-08-02] MEDS: PROSOURCE / PROSTAT (PYXIS) 30 ML UDC GT SCH (09:00)
[2016-08-02] MEDS: POLYETHYLENE GLYCOL 3350 17 GM POWD.PACK GT SCH (09:00)
[2016-08-02] MEDS: ESCITALOPRAM OXALATE (10 MG) 10 MG TABLET GT SCH (09:00)
[2016-08-02] MEDS: FAMOTIDINE (20 MG) 20 MG TABLET GT SCH ×2 (09:00→20:33)
[2016-08-02] MEDS: METOPROLOL TARTRATE 25 MG TABLET GT SCH ×2 (09:00→17:00)
[2016-08-02] MEDS: CALCIUM CARBONATE 500 MG TAB.CHEW GT SCH ×3 (09:00→17:00)
[2016-08-02] MEDS: MULTIVIT, IRON, MIN NO. 8, FA 1 TAB GT SCH (09:00)
[2016-08-02] MEDS: CRANBERRY GT SCH (09:00)
[2016-08-02] MEDS: ACIDOPHILUS/BULGARICUS 1 EACH TAB.CHEW GT SCH ×3 (09:00→17:00)
[2016-08-02] MEDS: MINERAL OIL/PETROL OINT 396 GM JAR TP SCH ×3 (09:00→17:00)
[2016-08-02] MEDS: GABAPENTIN 600 MG TABLET GT SCH ×3 (09:00→17:00)
[2016-08-02] MEDS: CALCITRIOL 0.25 MCG CAPSULE PO SCH (09:00)
[2016-08-02] MEDS: CLOPIDOGREL BISULFATE 75 MG TABLET GT SCH (09:00)
[2016-08-02] MEDS: ASCORBIC ACID 500 MG TABLET GT SCH ×2 (09:00→17:00)
[2016-08-02] MEDS: HYDROCODONE/APAP 10/325MG 1 EA TABLET GT SCH ×2 (15:00→20:33)
[2016-08-02] MEDS: NEOMY SULF/BACITRAC ZN/POLY 15 GM TUBE TP SCH ×2 (15:30)
[2016-08-02] MEDS: GENTAMICIN 0.1% OINT 15 GM TUBE TP SCH ×6 (15:30→20:35)
[2016-08-02] MEDS: HYDROGEN PEROXIDE 480 ML BOTTLE TP SCH ×2 (15:30→20:35)
[2016-08-02] MEDS: HYDROGEL DRESSING 90 GM TUBE TP SCH ×4 (15:30→20:34)
[2016-08-02] MEDS: CLOTRIMAZOLE/BETAMETASONE DIPROPIONATE 15 GM TUBE TP SCH (15:30)
[2016-08-02] MEDS: Z GUARD REMEDY 4 OZ OINT TP SCH ×4 (15:30→20:35)
[2016-08-02 19:44] VITALS: BP 108/66
[2016-08-02] MEDS: ENOXAPARIN SODIUM 40 MG/0.4 ML DISP.SYRIN SQ SCH (20:34)
[2016-08-02] MEDS: ATORVASTATIN CALCIUM 20MG TABLET GT SCH (21:39)
[2016-08-03 08:18] VITALS: BP 143/89
[2016-08-03] MEDS: MULTIVIT, IRON, MIN NO. 8, FA 1 TAB GT SCH (09:00)
[2016-08-03] MEDS: METOPROLOL TARTRATE 25 MG TABLET GT SCH ×2 (09:00→17:08)
[2016-08-03] MEDS: HYDROGEL DRESSING 90 GM TUBE TP SCH ×4 (09:00→21:29)
[2016-08-03] MEDS: POLYETHYLENE GLYCOL 3350 17 GM POWD.PACK GT SCH (09:00)
[2016-08-03] MEDS: ESCITALOPRAM OXALATE (10 MG) 10 MG TABLET GT SCH (09:00)
[2016-08-03] MEDS: GABAPENTIN 600 MG TABLET GT SCH ×3 (09:00→17:08)
[2016-08-03] MEDS: HYDROGEN PEROXIDE 480 ML BOTTLE TP SCH ×2 (09:00→21:30)
[2016-08-03] MEDS: CALCITRIOL 0.25 MCG CAPSULE PO SCH (09:00)
[2016-08-03] MEDS: FAMOTIDINE (20 MG) 20 MG TABLET GT SCH ×2 (09:00→21:29)
[2016-08-03] MEDS: BACLOFEN (10 MG) 10 MG TABLET GT SCH ×4 (09:00→21:28)
[2016-08-03] MEDS: MINERAL OIL/PETROL OINT 396 GM JAR TP SCH ×3 (09:00→17:09)
[2016-08-03] MEDS: CLOPIDOGREL BISULFATE 75 MG TABLET GT SCH (09:00)
[2016-08-03] MEDS: Z GUARD REMEDY 4 OZ OINT TP SCH ×4 (09:00→21:30)
[2016-08-03] MEDS: CRANBERRY GT SCH (09:00)
[2016-08-03] MEDS: HYDROCODONE/APAP 10/325MG 1 EA TABLET GT SCH ×2 (09:00→21:29)
[2016-08-03] MEDS: CALCIUM CARBONATE 500 MG TAB.CHEW GT SCH ×3 (09:00→17:08)
[2016-08-03] MEDS: ACIDOPHILUS/BULGARICUS 1 EACH TAB.CHEW GT SCH ×3 (09:00→17:08)
[2016-08-03] MEDS: ASCORBIC ACID 500 MG TABLET GT SCH ×2 (09:00→17:08)
[2016-08-03] MEDS: NEOMY SULF/BACITRAC ZN/POLY 15 GM TUBE TP SCH ×2 (09:00)
[2016-08-03] MEDS: GENTAMICIN 0.1% OINT 15 GM TUBE TP SCH ×6 (09:00→21:30)
[2016-08-03] MEDS: PROSOURCE / PROSTAT (PYXIS) 30 ML UDC GT SCH (09:00)
[2016-08-03 20:27] VITALS: BP 122/81
[2016-08-03] MEDS: ENOXAPARIN SODIUM 40 MG/0.4 ML DISP.SYRIN SQ SCH (21:29)
[2016-08-03] MEDS: ATORVASTATIN CALCIUM 20MG TABLET GT SCH (21:30)
[2016-08-04] MEDS: HYDROCODONE/APAP 10/325MG 1 EA TABLET GT PRN ×2 (02:49→15:22)
[2016-08-04 08:05] VITALS: BP 113/70
[2016-08-04] MEDS: CRANBERRY GT SCH (09:30)
[2016-08-04] MEDS: ESCITALOPRAM OXALATE (10 MG) 10 MG TABLET GT SCH (09:30)
[2016-08-04] MEDS: ACIDOPHILUS/BULGARICUS 1 EACH TAB.CHEW GT SCH ×3 (09:30→17:36)
[2016-08-04] MEDS: GABAPENTIN 600 MG TABLET GT SCH ×3 (09:31→17:36)
[2016-08-04] MEDS: BACLOFEN (10 MG) 10 MG TABLET GT SCH ×4 (09:31→21:33)
[2016-08-04] MEDS: HYDROCODONE/APAP 10/325MG 1 EA TABLET GT SCH ×2 (09:31→21:34)
[2016-08-04] MEDS: CLOPIDOGREL BISULFATE 75 MG TABLET GT SCH (09:31)
[2016-08-04] MEDS: METOPROLOL TARTRATE 25 MG TABLET GT SCH ×2 (09:31→17:36)
[2016-08-04] MEDS: POLYETHYLENE GLYCOL 3350 17 GM POWD.PACK GT SCH (09:31)
[2016-08-04] MEDS: FAMOTIDINE (20 MG) 20 MG TABLET GT SCH ×2 (09:31→21:34)
[2016-08-04] MEDS: ASCORBIC ACID 500 MG TABLET GT SCH ×2 (09:32→17:36)
[2016-08-04] MEDS: MINERAL OIL/PETROL OINT 396 GM JAR TP SCH ×3 (09:32→17:37)
[2016-08-04] MEDS: MULTIVIT, IRON, MIN NO. 8, FA 1 TAB GT SCH (09:32)
[2016-08-04] MEDS: HYDROGEL DRESSING 90 GM TUBE TP SCH ×4 (09:32→21:34)
[2016-08-04] MEDS: GENTAMICIN 0.1% OINT 15 GM TUBE TP SCH ×6 (09:32→21:35)
[2016-08-04] MEDS: CALCIUM CARBONATE 500 MG TAB.CHEW GT SCH ×3 (09:32→17:36)
[2016-08-04] MEDS: HYDROGEN PEROXIDE 480 ML BOTTLE TP SCH ×2 (09:32→21:35)
[2016-08-04] MEDS: NEOMY SULF/BACITRAC ZN/POLY 15 GM TUBE TP SCH ×2 (09:32)
[2016-08-04] MEDS: CALCITRIOL 0.25 MCG CAPSULE PO SCH (09:32)
[2016-08-04] MEDS: PROSOURCE / PROSTAT (PYXIS) 30 ML UDC GT SCH (09:32)
[2016-08-04] MEDS: Z GUARD REMEDY 4 OZ OINT TP SCH ×4 (09:33→21:35)
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
[2016-08-04] MEDS: ENOXAPARIN SODIUM 40 MG/0.4 ML DISP.SYRIN SQ SCH (21:34)
[2016-08-04] MEDS: ATORVASTATIN CALCIUM 20MG TABLET GT SCH (21:35)
[2016-08-04 22:59] VITALS: BP 104/75
[2016-08-05] MEDS: HYDROCODONE/APAP 10/325MG 1 EA TABLET GT PRN ×2 (04:59→14:19)
--- NOTE | 2016-08-05 06:27 | NUR ---
PT VERBALIZED THAT HE PRAYED TO GOD THAT HE WANT TO ,BECAUSE IF HE DIES NO MORE PAIN."HE SAID HIS LIFE IS NOT A LIFE".COMFORTED PT BY LISTENING TO HIM AND BY DISTRACTION.KEPT PT COMFORTABLE ALL NEEDS MET.WILL CONTINUE TO MONITOR.
[2016-08-05] MEDS: ACETAMINOPHEN 650 MG/20 ML UDC- FOR SA PATIENTS ONLY GT PRN (07:51)
[2016-08-05 08:13] VITALS: BP 118/73
[2016-08-05] MEDS: FAMOTIDINE (20 MG) 20 MG TABLET GT SCH ×2 (08:29→21:20)
[2016-08-05] MEDS: CRANBERRY GT SCH (08:29)
[2016-08-05] MEDS: GABAPENTIN 600 MG TABLET GT SCH ×3 (08:29→17:07)
[2016-08-05] MEDS: BACLOFEN (10 MG) 10 MG TABLET GT SCH ×4 (08:29→21:20)
[2016-08-05] MEDS: PROSOURCE / PROSTAT (PYXIS) 30 ML UDC GT SCH (08:29)
[2016-08-05] MEDS: ESCITALOPRAM OXALATE (10 MG) 10 MG TABLET GT SCH (08:29)
[2016-08-05] MEDS: CLOPIDOGREL BISULFATE 75 MG TABLET GT SCH (08:29)
[2016-08-05] MEDS: POLYETHYLENE GLYCOL 3350 17 GM POWD.PACK GT SCH (08:29)
[2016-08-05] MEDS: ACIDOPHILUS/BULGARICUS 1 EACH TAB.CHEW GT SCH ×3 (08:29→17:07)
[2016-08-05] MEDS: METOPROLOL TARTRATE 25 MG TABLET GT SCH ×2 (08:29→17:13)
[2016-08-05] MEDS: CALCITRIOL 0.25 MCG CAPSULE PO SCH (08:30)
[2016-08-05] MEDS: MULTIVIT, IRON, MIN NO. 8, FA 1 TAB GT SCH (08:30)
[2016-08-05] MEDS: ASCORBIC ACID 500 MG TABLET GT SCH ×2 (08:30→17:07)
[2016-08-05] MEDS: MINERAL OIL/PETROL OINT 396 GM JAR TP SCH ×3 (08:30→17:23)
[2016-08-05] MEDS: CALCIUM CARBONATE 500 MG TAB.CHEW GT SCH ×3 (08:30→17:07)
[2016-08-05] MEDS: HYDROCODONE/APAP 10/325MG 1 EA TABLET GT SCH ×2 (09:02→21:20)
[2016-08-05] MEDS: HYDROGEN PEROXIDE 480 ML BOTTLE TP SCH ×2 (10:00→21:21)
[2016-08-05] MEDS: NEOMY SULF/BACITRAC ZN/POLY 15 GM TUBE TP SCH ×2 (10:00)
[2016-08-05] MEDS: Z GUARD REMEDY 4 OZ OINT TP SCH ×4 (10:00→21:21)
[2016-08-05] MEDS: HYDROGEL DRESSING 90 GM TUBE TP SCH ×4 (10:00→21:21)
[2016-08-05] MEDS: GENTAMICIN 0.1% OINT 15 GM TUBE TP SCH ×5 (10:00→21:21)
[2016-08-05 20:41] VITALS: BP 111/64
[2016-08-05] MEDS: ENOXAPARIN SODIUM 40 MG/0.4 ML DISP.SYRIN SQ SCH (21:20)
[2016-08-05] MEDS: ATORVASTATIN CALCIUM 20MG TABLET GT SCH (21:21)
[2016-08-06] MEDS: HYDROCODONE/APAP 10/325MG 1 EA TABLET GT PRN (05:30)
[2016-08-06 08:11] VITALS: BP 118/68
[2016-08-06] MEDS: BACLOFEN (10 MG) 10 MG TABLET GT SCH ×4 (08:58→21:46)
[2016-08-06] MEDS: ACIDOPHILUS/BULGARICUS 1 EACH TAB.CHEW GT SCH ×3 (08:58→17:47)
[2016-08-06] MEDS: ESCITALOPRAM OXALATE (10 MG) 10 MG TABLET GT SCH (08:58)
[2016-08-06] MEDS: CRANBERRY GT SCH (08:58)
[2016-08-06] MEDS: PROSOURCE / PROSTAT (PYXIS) 30 ML UDC GT SCH (09:00)
[2016-08-06] MEDS: CALCITRIOL 0.25 MCG CAPSULE PO SCH (09:00)
[2016-08-06] MEDS: POLYETHYLENE GLYCOL 3350 17 GM POWD.PACK GT SCH (09:00)
[2016-08-06] MEDS: FAMOTIDINE (20 MG) 20 MG TABLET GT SCH ×2 (09:00→21:46)
[2016-08-06] MEDS: METOPROLOL TARTRATE 25 MG TABLET GT SCH ×2 (09:00→17:48)
[2016-08-06] MEDS: CALCIUM CARBONATE 500 MG TAB.CHEW GT SCH ×3 (09:00→17:48)
[2016-08-06] MEDS: GABAPENTIN 600 MG TABLET GT SCH ×3 (09:00→17:48)
[2016-08-06] MEDS: MULTIVIT, IRON, MIN NO. 8, FA 1 TAB GT SCH (09:00)
[2016-08-06] MEDS: CLOPIDOGREL BISULFATE 75 MG TABLET GT SCH (09:00)
[2016-08-06] MEDS: HYDROCODONE/APAP 10/325MG 1 EA TABLET GT SCH ×2 (09:00→21:46)
[2016-08-06] MEDS: ASCORBIC ACID 500 MG TABLET GT SCH ×2 (09:00→17:48)
[2016-08-06] MEDS: MINERAL OIL/PETROL OINT 396 GM JAR TP SCH ×3 (09:00→17:48)
[2016-08-06] MEDS: HYDROGEL DRESSING 90 GM TUBE TP SCH ×4 (10:00→21:47)
[2016-08-06] MEDS: Z GUARD REMEDY 4 OZ OINT TP SCH ×4 (10:00→21:47)
[2016-08-06] MEDS: HYDROGEN PEROXIDE 480 ML BOTTLE TP SCH ×2 (10:00→21:47)
[2016-08-06] MEDS: GENTAMICIN 0.1% OINT 15 GM TUBE TP SCH ×4 (10:00→21:47)
[2016-08-06] MEDS: NEOMY SULF/BACITRAC ZN/POLY 15 GM TUBE TP SCH ×2 (10:00)
[2016-08-06 21:12] VITALS: BP 126/70
[2016-08-06] MEDS: ENOXAPARIN SODIUM 40 MG/0.4 ML DISP.SYRIN SQ SCH (21:47)
[2016-08-06] MEDS: ATORVASTATIN CALCIUM 20MG TABLET GT SCH (21:47)
[2016-08-07] MEDS: HYDROCODONE/APAP 10/325MG 1 EA TABLET GT PRN (02:28)
[2016-08-07 08:00] VITALS: BP 112/79
[2016-08-07] MEDS: CRANBERRY GT SCH (09:09)
[2016-08-07] MEDS: BACLOFEN (10 MG) 10 MG TABLET GT SCH ×4 (09:10→21:26)
[2016-08-07] MEDS: ACIDOPHILUS/BULGARICUS 1 EACH TAB.CHEW GT SCH ×3 (09:10→16:59)
[2016-08-07] MEDS: CLOPIDOGREL BISULFATE 75 MG TABLET GT SCH (09:10)
[2016-08-07] MEDS: METOPROLOL TARTRATE 25 MG TABLET GT SCH ×2 (09:10→16:59)
[2016-08-07] MEDS: ESCITALOPRAM OXALATE (10 MG) 10 MG TABLET GT SCH (09:10)
[2016-08-07] MEDS: FAMOTIDINE (20 MG) 20 MG TABLET GT SCH ×2 (09:10→21:26)
[2016-08-07] MEDS: HYDROCODONE/APAP 10/325MG 1 EA TABLET GT SCH ×2 (09:10→21:26)
[2016-08-07] MEDS: PROSOURCE / PROSTAT (PYXIS) 30 ML UDC GT SCH (09:10)
[2016-08-07] MEDS: POLYETHYLENE GLYCOL 3350 17 GM POWD.PACK GT SCH (09:10)
[2016-08-07] MEDS: GABAPENTIN 600 MG TABLET GT SCH ×3 (09:10→16:59)
[2016-08-07] MEDS: CALCIUM CARBONATE 500 MG TAB.CHEW GT SCH ×3 (09:11→16:59)
[2016-08-07] MEDS: CALCITRIOL 0.25 MCG CAPSULE PO SCH (09:11)
[2016-08-07] MEDS: MULTIVIT, IRON, MIN NO. 8, FA 1 TAB GT SCH (09:11)
[2016-08-07] MEDS: Z GUARD REMEDY 4 OZ OINT TP SCH ×4 (09:11→21:28)
[2016-08-07] MEDS: ASCORBIC ACID 500 MG TABLET GT SCH ×2 (09:11→16:59)
[2016-08-07] MEDS: MINERAL OIL/PETROL OINT 396 GM JAR TP SCH ×3 (09:11→16:59)
[2016-08-07] MEDS: HYDROGEL DRESSING 90 GM TUBE TP SCH ×4 (09:11→21:27)
[2016-08-07] MEDS: GENTAMICIN 0.1% OINT 15 GM TUBE TP SCH ×4 (09:11→21:27)
[2016-08-07] MEDS: NEOMY SULF/BACITRAC ZN/POLY 15 GM TUBE TP SCH ×2 (09:11)
[2016-08-07] MEDS: HYDROGEN PEROXIDE 480 ML BOTTLE TP SCH ×2 (09:11→21:27)
[2016-08-07 19:46] VITALS: BP 124/85
--- NOTE | 2016-08-07 21:00 | NUR ---
RN NOTES When doing wound treatment, pt verbalized he does not wish to do this any more and that he just wants to . Reassured pt we will provide care for him and make him as comfortable as possible. Pt requested to pray and began to pray. When treatment was done pt expressed appreciation. Pt was requesting for a specific ELECTRONIC WARFARE LINGUIST to come see him and to give him a haircut. ELECTRONIC WARFARE LINGUIST not available to give him a haircut. Will endorse to following shift of his request.
[2016-08-07] MEDS: ENOXAPARIN SODIUM 40 MG/0.4 ML DISP.SYRIN SQ SCH (21:27)
[2016-08-07] MEDS: ATORVASTATIN CALCIUM 20MG TABLET GT SCH (21:28)
[2016-08-08 08:00] VITALS: BP 124/56
[2016-08-08] MEDS: ACIDOPHILUS/BULGARICUS 1 EACH TAB.CHEW GT SCH ×3 (08:49→17:00)
[2016-08-08] MEDS: ESCITALOPRAM OXALATE (10 MG) 10 MG TABLET GT SCH (08:49)
[2016-08-08] MEDS: CRANBERRY GT SCH (08:49)
[2016-08-08] MEDS: BACLOFEN (10 MG) 10 MG TABLET GT SCH ×4 (08:49→21:29)
[2016-08-08] MEDS: MULTIVIT, IRON, MIN NO. 8, FA 1 TAB GT SCH (08:50)
[2016-08-08] MEDS: GABAPENTIN 600 MG TABLET GT SCH ×3 (08:50→17:00)
[2016-08-08] MEDS: CALCITRIOL 0.25 MCG CAPSULE PO SCH (08:50)
[2016-08-08] MEDS: ASCORBIC ACID 500 MG TABLET GT SCH ×2 (08:50→17:00)
[2016-08-08] MEDS: POLYETHYLENE GLYCOL 3350 17 GM POWD.PACK GT SCH (08:50)
[2016-08-08] MEDS: FAMOTIDINE (20 MG) 20 MG TABLET GT SCH ×2 (08:50→21:30)
[2016-08-08] MEDS: METOPROLOL TARTRATE 25 MG TABLET GT SCH ×2 (08:50→17:00)
[2016-08-08] MEDS: CALCIUM CARBONATE 500 MG TAB.CHEW GT SCH ×3 (08:50→17:00)
[2016-08-08] MEDS: PROSOURCE / PROSTAT (PYXIS) 30 ML UDC GT SCH (08:50)
[2016-08-08] MEDS: CLOPIDOGREL BISULFATE 75 MG TABLET GT SCH (08:50)
[2016-08-08] MEDS: Z GUARD REMEDY 4 OZ OINT TP SCH ×4 (09:00→21:30)
[2016-08-08] MEDS: NEOMY SULF/BACITRAC ZN/POLY 15 GM TUBE TP SCH ×2 (09:00)
--- NOTE | 2016-08-08 10:00 | NUR ---
Spoke with Shasta from IC regarding patient's isolation, she stated she will review culture result in the past and will inform staff.
[2016-08-08] MEDS: MINERAL OIL/PETROL OINT 396 GM JAR TP SCH ×3 (13:00→17:00)
[2016-08-08] MEDS: HYDROCODONE/APAP 10/325MG 1 EA TABLET GT SCH ×2 (15:00→21:30)
[2016-08-08] MEDS: GENTAMICIN 0.1% OINT 15 GM TUBE TP SCH ×4 (15:00→21:30)
[2016-08-08] MEDS: HYDROGEN PEROXIDE 480 ML BOTTLE TP SCH ×2 (15:00→21:30)
[2016-08-08] MEDS: HYDROGEL DRESSING 90 GM TUBE TP SCH ×4 (15:00→21:30)
--- NOTE | 2016-08-08 19:30 | NUR ---
RN NOTES Seen and examined by Peggy Hoffman with [facility].
[2016-08-08 19:57] VITALS: BP 91/52
[2016-08-08] MEDS: ENOXAPARIN SODIUM 40 MG/0.4 ML DISP.SYRIN SQ SCH (21:30)
[2016-08-08] MEDS: ATORVASTATIN CALCIUM 20MG TABLET GT SCH (21:31)
[2016-08-09] MEDS: CRANBERRY GT SCH (08:15)
[2016-08-09] MEDS: ACIDOPHILUS/BULGARICUS 1 EACH TAB.CHEW GT SCH ×3 (08:15→17:00)
[2016-08-09] MEDS: BACLOFEN (10 MG) 10 MG TABLET GT SCH ×4 (08:15→21:44)
[2016-08-09] MEDS: ESCITALOPRAM OXALATE (10 MG) 10 MG TABLET GT SCH (08:15)
[2016-08-09] MEDS: METOPROLOL TARTRATE 25 MG TABLET GT SCH ×2 (08:16→17:00)
[2016-08-09] MEDS: CALCITRIOL 0.25 MCG CAPSULE PO SCH (08:17)
[2016-08-09] MEDS: FAMOTIDINE (20 MG) 20 MG TABLET GT SCH ×2 (08:17→21:45)
[2016-08-09] MEDS: CLOPIDOGREL BISULFATE 75 MG TABLET GT SCH (08:17)
[2016-08-09] MEDS: GABAPENTIN 600 MG TABLET GT SCH ×3 (08:17→17:01)
[2016-08-09] MEDS: CALCIUM CARBONATE 500 MG TAB.CHEW GT SCH ×3 (08:18→17:01)
[2016-08-09] MEDS: ASCORBIC ACID 500 MG TABLET GT SCH ×2 (08:18→17:01)
[2016-08-09] MEDS: MULTIVIT, IRON, MIN NO. 8, FA 1 TAB GT SCH (08:18)
[2016-08-09] MEDS: HYDROGEL DRESSING 90 GM TUBE TP SCH ×4 (08:19→21:45)
[2016-08-09] MEDS: POLYETHYLENE GLYCOL 3350 17 GM POWD.PACK GT SCH (08:19)
[2016-08-09] MEDS: GENTAMICIN 0.1% OINT 15 GM TUBE TP SCH ×4 (08:19→21:45)
[2016-08-09] MEDS: MINERAL OIL/PETROL OINT 396 GM JAR TP SCH ×3 (08:19→17:01)
[2016-08-09] MEDS: PROSOURCE / PROSTAT (PYXIS) 30 ML UDC GT SCH (08:19)
[2016-08-09] MEDS: Z GUARD REMEDY 4 OZ OINT TP SCH ×4 (08:20→21:45)
[2016-08-09] MEDS: HYDROGEN PEROXIDE 480 ML BOTTLE TP SCH ×2 (08:20→21:45)
[2016-08-09] MEDS: HYDROCODONE/APAP 10/325MG 1 EA TABLET GT SCH ×2 (08:22→21:44)
--- NOTE | 2016-08-09 08:44 | NUR ---
RAVI spoke to the resident about his request for DECAL DECORATOR cutting his hair. Per resident, it is okay to let DECAL DECORATOR cut his hair and he does not want to wait for the chairperson anesthesiology. Informed charge nurse and complex director. RAVI addressed this again with the resident who stated he wants DECAL DECORATOR to cut his hair even though he had concerns about this staff member the previous week. RAVI will schedule for resident to get his haircut per his request.
--- NOTE | 2016-08-09 09:11 | NUR ---
Sw spoke to the resident as he has been expressing wanting to . SW talked to the resident and provided emotional support. Resident stated "it's just an expression, how would you feel?" Resident expressed sadness about being quadriplegic and talked about his memories. He stated he felt better talking about his feelings and feels happy he can trust the SW. Resident agreed that he is able to talk about his feelings and that this might help him.
--- NOTE | 2016-08-09 11:00 | NUR ---
Seen and examined by HUBERT Purcell given at this time.
[2016-08-09 21:16] VITALS: BP 122/75
[2016-08-09] MEDS: ENOXAPARIN SODIUM 40 MG/0.4 ML DISP.SYRIN SQ SCH (21:45)
[2016-08-09] MEDS: ATORVASTATIN CALCIUM 20MG TABLET GT SCH (21:45)
[2016-08-10 07:34] VITALS: BP 121/77
[2016-08-10] MEDS: BACLOFEN (10 MG) 10 MG TABLET GT SCH ×4 (08:13→21:06)
[2016-08-10] MEDS: ACIDOPHILUS/BULGARICUS 1 EACH TAB.CHEW GT SCH ×3 (08:13→16:54)
[2016-08-10] MEDS: CRANBERRY GT SCH (08:13)
[2016-08-10] MEDS: ESCITALOPRAM OXALATE (10 MG) 10 MG TABLET GT SCH (08:13)
[2016-08-10] MEDS: POLYETHYLENE GLYCOL 3350 17 GM POWD.PACK GT SCH (08:14)
[2016-08-10] MEDS: FAMOTIDINE (20 MG) 20 MG TABLET GT SCH ×2 (08:14→21:07)
[2016-08-10] MEDS: CALCIUM CARBONATE 500 MG TAB.CHEW GT SCH ×3 (08:14→16:54)
[2016-08-10] MEDS: PROSOURCE / PROSTAT (PYXIS) 30 ML UDC GT SCH (08:14)
[2016-08-10] MEDS: METOPROLOL TARTRATE 25 MG TABLET GT SCH ×2 (08:14→16:54)
[2016-08-10] MEDS: GABAPENTIN 600 MG TABLET GT SCH ×3 (08:14→16:54)
[2016-08-10] MEDS: MULTIVIT, IRON, MIN NO. 8, FA 1 TAB GT SCH (08:14)
[2016-08-10] MEDS: HYDROCODONE/APAP 10/325MG 1 EA TABLET GT SCH ×2 (08:14→21:07)
[2016-08-10] MEDS: CLOPIDOGREL BISULFATE 75 MG TABLET GT SCH (08:14)
[2016-08-10] MEDS: ASCORBIC ACID 500 MG TABLET GT SCH ×2 (08:15→16:54)
[2016-08-10] MEDS: CALCITRIOL 0.25 MCG CAPSULE PO SCH (08:15)
[2016-08-10] MEDS: HYDROGEN PEROXIDE 480 ML BOTTLE TP SCH ×2 (09:05→21:08)
[2016-08-10] MEDS: MINERAL OIL/PETROL OINT 396 GM JAR TP SCH ×3 (09:05→16:54)
[2016-08-10] MEDS: GENTAMICIN 0.1% OINT 15 GM TUBE TP SCH ×4 (09:05→21:08)
[2016-08-10] MEDS: HYDROGEL DRESSING 90 GM TUBE TP SCH ×4 (09:05→21:08)
[2016-08-10] MEDS: Z GUARD REMEDY 4 OZ OINT TP SCH ×4 (09:05→21:08)
--- NOTE | 2016-08-10 11:00 | NUR ---
Resent podiatry consult to Mike at the wound center since Dr. Lovell never came.
[2016-08-10] MEDS: ENOXAPARIN SODIUM 40 MG/0.4 ML DISP.SYRIN SQ SCH (21:08)
[2016-08-10] MEDS: ATORVASTATIN CALCIUM 20MG TABLET GT SCH (21:08)
[2016-08-10 21:53] VITALS: BP 115/64
[2016-08-11] MEDS: HYDROCODONE/APAP 10/325MG 1 EA TABLET GT PRN ×2 (02:10→15:08)
[2016-08-11] MEDS: ACIDOPHILUS/BULGARICUS 1 EACH TAB.CHEW GT SCH ×3 (08:42→17:16)
[2016-08-11] MEDS: BACLOFEN (10 MG) 10 MG TABLET GT SCH ×4 (08:42→21:41)
[2016-08-11] MEDS: CRANBERRY GT SCH (08:42)
[2016-08-11] MEDS: ESCITALOPRAM OXALATE (10 MG) 10 MG TABLET GT SCH (08:42)
[2016-08-11] MEDS: HYDROCODONE/APAP 10/325MG 1 EA TABLET GT SCH ×2 (08:43→21:41)
[2016-08-11] MEDS: FAMOTIDINE (20 MG) 20 MG TABLET GT SCH ×2 (08:43→21:41)
[2016-08-11] MEDS: METOPROLOL TARTRATE 25 MG TABLET GT SCH ×2 (08:43→17:16)
[2016-08-11] MEDS: POLYETHYLENE GLYCOL 3350 17 GM POWD.PACK GT SCH (08:43)
[2016-08-11] MEDS: GABAPENTIN 600 MG TABLET GT SCH ×3 (08:43→17:16)
[2016-08-11] MEDS: PROSOURCE / PROSTAT (PYXIS) 30 ML UDC GT SCH (08:44)
[2016-08-11] MEDS: CALCITRIOL 0.25 MCG CAPSULE PO SCH (08:44)
[2016-08-11] MEDS: ASCORBIC ACID 500 MG TABLET GT SCH ×2 (08:44→17:16)
[2016-08-11] MEDS: MULTIVIT, IRON, MIN NO. 8, FA 1 TAB GT SCH (08:44)
[2016-08-11] MEDS: CLOPIDOGREL BISULFATE 75 MG TABLET GT SCH (08:44)
[2016-08-11] MEDS: CALCIUM CARBONATE 500 MG TAB.CHEW GT SCH ×3 (08:44→17:16)
[2016-08-11] MEDS: HYDROGEL DRESSING 90 GM TUBE TP SCH ×4 (09:16→21:43)
[2016-08-11] MEDS: MINERAL OIL/PETROL OINT 396 GM JAR TP SCH ×3 (09:16→17:16)
[2016-08-11] MEDS: GENTAMICIN 0.1% OINT 15 GM TUBE TP SCH ×5 (09:17→21:44)
[2016-08-11] MEDS: HYDROGEN PEROXIDE 480 ML BOTTLE TP SCH ×2 (09:17→21:44)
[2016-08-11] MEDS: Z GUARD REMEDY 4 OZ OINT TP SCH ×4 (09:17→21:45)
--- NOTE | 2016-08-11 14:20 | NUR ---
Seen and examined by Dr Walker with new order Gabapentin 900 mg via GT TID for neuropathic Pain order noted and carried out.Resident made aware.
--- NOTE | 2016-08-11 15:40 | NUR ---
Seen and examined by Peggy BOYCE with no new order.
[2016-08-11] MEDS ORDERED: GABAPENTIN 600 MG TABLET GT SCH (17:00)
[2016-08-11] MEDS ORDERED: GABAPENTIN 300 MG CAPSULE GT SCH (17:00)
[2016-08-11 21:16] VITALS: BP 132/68
[2016-08-11] MEDS: ENOXAPARIN SODIUM 40 MG/0.4 ML DISP.SYRIN SQ SCH (21:43)
[2016-08-11] MEDS: ATORVASTATIN CALCIUM 20MG TABLET GT SCH (21:45)
[2016-08-11] MEDS: CLOTRIMAZOLE/BETAMETASONE DIPROPIONATE 15 GM TUBE TP SCH (21:46)
[2016-08-12 07:42] VITALS: BP 126/68
[2016-08-12] MEDS: ACIDOPHILUS/BULGARICUS 1 EACH TAB.CHEW GT SCH ×3 (08:58→17:15)
[2016-08-12] MEDS: ESCITALOPRAM OXALATE (10 MG) 10 MG TABLET GT SCH (08:58)
[2016-08-12] MEDS: CRANBERRY GT SCH (08:58)
[2016-08-12] MEDS: BACLOFEN (10 MG) 10 MG TABLET GT SCH ×4 (08:58→21:44)
[2016-08-12] MEDS: PROSOURCE / PROSTAT (PYXIS) 30 ML UDC GT SCH (08:59)
[2016-08-12] MEDS: POLYETHYLENE GLYCOL 3350 17 GM POWD.PACK GT SCH (08:59)
[2016-08-12] MEDS: METOPROLOL TARTRATE 25 MG TABLET GT SCH ×2 (08:59→17:15)
[2016-08-12] MEDS: CLOPIDOGREL BISULFATE 75 MG TABLET GT SCH (08:59)
[2016-08-12] MEDS: FAMOTIDINE (20 MG) 20 MG TABLET GT SCH ×2 (08:59→21:45)
[2016-08-12] MEDS: CALCITRIOL 0.25 MCG CAPSULE PO SCH (08:59)
[2016-08-12] MEDS: GABAPENTIN 600 MG TABLET GT SCH ×3 (08:59→17:15)
[2016-08-12] MEDS: CALCIUM CARBONATE 500 MG TAB.CHEW GT SCH ×3 (08:59→17:15)
[2016-08-12] MEDS: MULTIVIT, IRON, MIN NO. 8, FA 1 TAB GT SCH (08:59)
[2016-08-12] MEDS: ASCORBIC ACID 500 MG TABLET GT SCH ×2 (08:59→17:15)
[2016-08-12] MEDS: HYDROCODONE/APAP 10/325MG 1 EA TABLET GT SCH ×2 (08:59→21:45)
--- NOTE | 2016-08-12 09:15 | NUR ---
Verified with Dr. Conroy if he will do a procedure for the pt on 08/15/16. Dr. 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 Received order to place pt NPO after midnight on 08/15/16. He said Dr. Walker will order pre-op labs as needed.
--- NOTE | 2016-08-12 09:35 | NUR ---
Dr. Walker ordered CBC, BMP, PT, PTT prior to resection of right lateral eyelid cancer. Also received order to hold Plavix until 24 hours after the procedure, hold Lovenox on 08/15/16 until 24 hours after the procedure.
[2016-08-12] MEDS: MINERAL OIL/PETROL OINT 396 GM JAR TP SCH ×3 (10:00→17:15)
[2016-08-12] MEDS: CLOTRIMAZOLE/BETAMETASONE DIPROPIONATE 15 GM TUBE TP SCH ×2 (10:00→21:48)
[2016-08-12] MEDS: Z GUARD REMEDY 4 OZ OINT TP SCH ×4 (10:00→21:48)
[2016-08-12] MEDS: HYDROGEL DRESSING 90 GM TUBE TP SCH ×4 (10:00→21:47)
[2016-08-12] MEDS: GENTAMICIN 0.1% OINT 15 GM TUBE TP SCH ×6 (10:00→21:48)
[2016-08-12] MEDS: HYDROGEN PEROXIDE 480 ML BOTTLE TP SCH ×2 (10:00→21:48)
--- NOTE | 2016-08-12 10:38 | NUR ---
Resident unable to get haircut at hospital. RAVI scheduled for kizzy Daniel to come on August 24, 2016 to cut the resident's hair. He understood and noted that he is able to wait for his haircut.
[2016-08-12] MEDS: MAGNESIUM HYDROXIDE 30 ML UDC GT PRN (19:27)
[2016-08-12 19:54] VITALS: BP 99/63
[2016-08-12] MEDS: ATORVASTATIN CALCIUM 20MG TABLET GT SCH (21:48)
[2016-08-12] MEDS: ENOXAPARIN SODIUM 40 MG/0.4 ML DISP.SYRIN SQ SCH (21:49)
[2016-08-13] MEDS: HYDROCODONE/APAP 10/325MG 1 EA TABLET GT PRN ×2 (05:40→18:29)
[2016-08-13 07:46] VITALS: BP 114/68
[2016-08-13] MEDS: POLYETHYLENE GLYCOL 3350 17 GM POWD.PACK GT SCH (09:04)
[2016-08-13] MEDS: METOPROLOL TARTRATE 25 MG TABLET GT SCH ×2 (09:04→17:00)
[2016-08-13] MEDS: BACLOFEN (10 MG) 10 MG TABLET GT SCH ×4 (09:04→21:19)
[2016-08-13] MEDS: ESCITALOPRAM OXALATE (10 MG) 10 MG TABLET GT SCH (09:04)
[2016-08-13] MEDS: GABAPENTIN 600 MG TABLET GT SCH ×3 (09:04→17:00)
[2016-08-13] MEDS: CRANBERRY GT SCH (09:04)
[2016-08-13] MEDS: ACIDOPHILUS/BULGARICUS 1 EACH TAB.CHEW GT SCH ×3 (09:04→17:00)
[2016-08-13] MEDS: FAMOTIDINE (20 MG) 20 MG TABLET GT SCH ×2 (09:05→21:19)
[2016-08-13] MEDS: MULTIVIT, IRON, MIN NO. 8, FA 1 TAB GT SCH (09:05)
[2016-08-13] MEDS: ASCORBIC ACID 500 MG TABLET GT SCH ×2 (09:05→17:00)
[2016-08-13] MEDS: PROSOURCE / PROSTAT (PYXIS) 30 ML UDC GT SCH (09:05)
[2016-08-13] MEDS: CALCIUM CARBONATE 500 MG TAB.CHEW GT SCH ×3 (09:05→17:00)
[2016-08-13] MEDS: HYDROCODONE/APAP 10/325MG 1 EA TABLET GT SCH ×2 (09:05→21:00)
[2016-08-13] MEDS: CALCITRIOL 0.25 MCG CAPSULE PO SCH (09:05)
[2016-08-13] MEDS: Z GUARD REMEDY 4 OZ OINT TP SCH ×4 (09:30→21:20)
[2016-08-13] MEDS: MINERAL OIL/PETROL OINT 396 GM JAR TP SCH ×3 (09:30→17:00)
[2016-08-13] MEDS: HYDROGEL DRESSING 90 GM TUBE TP SCH ×4 (09:30→21:20)
[2016-08-13] MEDS: HYDROGEN PEROXIDE 480 ML BOTTLE TP SCH ×2 (09:30→21:20)
[2016-08-13] MEDS: CLOTRIMAZOLE/BETAMETASONE DIPROPIONATE 15 GM TUBE TP SCH ×2 (09:30→21:20)
[2016-08-13] MEDS: GENTAMICIN 0.1% OINT 15 GM TUBE TP SCH ×6 (09:30→21:20)
[2016-08-13 19:59] VITALS: BP 121/65
[2016-08-13] MEDS: ENOXAPARIN SODIUM 40 MG/0.4 ML DISP.SYRIN SQ SCH (21:20)
[2016-08-13] MEDS: ATORVASTATIN CALCIUM 20MG TABLET GT SCH (22:26)
[2016-08-14] MEDS: HYDROCODONE/APAP 10/325MG 1 EA TABLET GT PRN (04:28)
--- NOTE | 2016-08-14 06:00 | NUR ---
Patient made aware of his procedure on Monday08/15/16 for resection right lateral eyelid.Pre op labs done today.Right hand heplock inserted with good blood return.
[2016-08-14 06:20] LABS: BASOPHILS # (AUTO) 0.1 /CMM (0.0-0.2); BASOPHILS % (AUTO) 0.9 % (0.0-2.0); EOSINOPHILS # (AUTO) 0.4 /CMM (0.0-0.7); EOSINOPHILS % (AUTO) 4.8 % (0.0-6.0); HEMATOCRIT 35 % (39-51); HEMOGLOBIN 11.3 g/dL (13.5-17.5); LYMPHOCYTES % (AUTO) 21.2 % (20.0-44.0); MEAN CORPUSCULAR HEMOGLOBIN 27 PG (26.0-33.0); MEAN CORPUSCULAR HGB CONC 32 g/dl (31.0-36.0); MEAN CORPUSCULAR VOLUME 85 fL (80-96); MONOCYTES # (AUTO) 0.9 /CMM (0.1-1.30); MONOCYTES % (AUTO) 9.8 % (2.0-12.0); NEUTROPHILS # (AUTO) 5.9 /CMM (1.8-8.9); NEUTROPHILS % (AUTO) 63.3 % (43.0-81.0); PLATELET COUNT (AUTO) 378 /CMM (150-450); RDW COEFFICIENT OF VARIATION 19.2 (11.5-15.0); RED BLOOD CELL COUNT(AUTO) 4.16 MIL/uL (4.5-6.0); WHITE BLOOD COUNT (AUTO) 9.3 K/uL (4.3-11.0)
[2016-08-14 06:55] LABS: INR 0.91 (0.87-1.13); PROTHROMBIN TIME 9.7 SECS (9.5-12.7)
[2016-08-14 07:30] VITALS: BP 109/80
[2016-08-14] MEDS: ACIDOPHILUS/BULGARICUS 1 EACH TAB.CHEW GT SCH ×3 (09:15→16:37)
[2016-08-14] MEDS: ESCITALOPRAM OXALATE (10 MG) 10 MG TABLET GT SCH (09:15)
[2016-08-14] MEDS: BACLOFEN (10 MG) 10 MG TABLET GT SCH ×4 (09:15→20:21)
[2016-08-14] MEDS: CRANBERRY GT SCH (09:15)
[2016-08-14] MEDS: CALCIUM CARBONATE 500 MG TAB.CHEW GT SCH ×3 (09:16→16:37)
[2016-08-14] MEDS: GENTAMICIN 0.1% OINT 15 GM TUBE TP SCH ×6 (09:16→20:21)
[2016-08-14] MEDS: METOPROLOL TARTRATE 25 MG TABLET GT SCH ×2 (09:16→16:37)
[2016-08-14] MEDS: GABAPENTIN 600 MG TABLET GT SCH ×3 (09:16→16:37)
[2016-08-14] MEDS: FAMOTIDINE (20 MG) 20 MG TABLET GT SCH ×2 (09:16→20:21)
[2016-08-14] MEDS: POLYETHYLENE GLYCOL 3350 17 GM POWD.PACK GT SCH (09:16)
[2016-08-14] MEDS: MINERAL OIL/PETROL OINT 396 GM JAR TP SCH ×3 (09:16→16:37)
[2016-08-14] MEDS: MULTIVIT, IRON, MIN NO. 8, FA 1 TAB GT SCH (09:16)
[2016-08-14] MEDS: HYDROGEL DRESSING 90 GM TUBE TP SCH ×4 (09:16→20:21)
[2016-08-14] MEDS: ASCORBIC ACID 500 MG TABLET GT SCH ×2 (09:16→16:37)
[2016-08-14] MEDS: HYDROGEN PEROXIDE 480 ML BOTTLE TP SCH ×2 (09:16→20:21)
[2016-08-14] MEDS: CALCITRIOL 0.25 MCG CAPSULE PO SCH (09:16)
[2016-08-14] MEDS: HYDROCODONE/APAP 10/325MG 1 EA TABLET GT SCH ×2 (09:16→21:00)
[2016-08-14] MEDS: PROSOURCE / PROSTAT (PYXIS) 30 ML UDC GT SCH (09:16)
[2016-08-14] MEDS: CLOTRIMAZOLE/BETAMETASONE DIPROPIONATE 15 GM TUBE TP SCH ×2 (09:17→20:21)
[2016-08-14] MEDS: Z GUARD REMEDY 4 OZ OINT TP SCH ×4 (09:17→20:22)
[2016-08-14 15:33] LABS: CALCIUM, SERUM 8.8 mg/dL (8.5-10.1); CREATININE 0.5 mg/dL (0.6-1.3); POTASSIUM 5.3 mmol/L (3.5-5.1)
[2016-08-14 16:00] LABS: CALCIUM, SERUM 8.7 mg/dL (8.5-10.1); CREATININE 0.7 mg/dL (0.6-1.3); POTASSIUM 4.6 mmol/L (3.5-5.1)
[2016-08-14 19:57] VITALS: BP 101/50
[2016-08-14] MEDS: ENOXAPARIN SODIUM 40 MG/0.4 ML DISP.SYRIN SQ SCH (20:37)
[2016-08-14] MEDS: ATORVASTATIN CALCIUM 20MG TABLET GT SCH (21:45)
--- NOTE | 2016-08-15 08:08 | NUR ---
Pt NPO since midnight. Received order from Dr. Walker that pt may be given medications.
[2016-08-15 08:39] VITALS: BP 112/77
[2016-08-15] MEDS: ACIDOPHILUS/BULGARICUS 1 EACH TAB.CHEW GT SCH ×3 (09:19→17:00)
[2016-08-15] MEDS: ESCITALOPRAM OXALATE (10 MG) 10 MG TABLET GT SCH (09:19)
[2016-08-15] MEDS: BACLOFEN (10 MG) 10 MG TABLET GT SCH ×4 (09:19→21:14)
[2016-08-15] MEDS: CRANBERRY GT SCH (09:19)
[2016-08-15] MEDS: ASCORBIC ACID 500 MG TABLET GT SCH ×2 (09:20→17:00)
[2016-08-15] MEDS: PROSOURCE / PROSTAT (PYXIS) 30 ML UDC GT SCH (09:20)
[2016-08-15] MEDS: METOPROLOL TARTRATE 25 MG TABLET GT SCH ×2 (09:20→17:00)
[2016-08-15] MEDS: FAMOTIDINE (20 MG) 20 MG TABLET GT SCH ×2 (09:20→21:15)
[2016-08-15] MEDS: CALCITRIOL 0.25 MCG CAPSULE PO SCH (09:20)
[2016-08-15] MEDS: MULTIVIT, IRON, MIN NO. 8, FA 1 TAB GT SCH (09:20)
[2016-08-15] MEDS: POLYETHYLENE GLYCOL 3350 17 GM POWD.PACK GT SCH (09:20)
[2016-08-15] MEDS: CALCIUM CARBONATE 500 MG TAB.CHEW GT SCH ×3 (09:20→17:00)
[2016-08-15] MEDS: GABAPENTIN 600 MG TABLET GT SCH ×3 (09:20→17:00)
--- NOTE | 2016-08-15 12:48 | NUR ---
Pt was picked up by surgery staff. Pt was taken to OR via bed. Notified Vilma Marley. Addendum: 08/15/16 at 1250 by WINIFRED GARCÍA RN Pt in stable condition. BP 102/62 HR 61 T 97.6 F R 16 O2 sat 98%
[2016-08-15] MEDS: MINERAL OIL/PETROL OINT 396 GM JAR TP SCH ×3 (13:00→17:00)
--- NOTE | 2016-08-15 14:10 | NUR ---
Pt came back from surgery. Pt asleep when he came back. BP 90/50 HR 60 T 97.2F R 16 O2 sat 98%.
[2016-08-15] MEDS: GENTAMICIN 0.1% OINT 15 GM TUBE TP SCH ×6 (15:09→21:48)
[2016-08-15] MEDS: HYDROGEN PEROXIDE 480 ML BOTTLE TP SCH ×2 (15:09→21:48)
[2016-08-15] MEDS: HYDROGEL DRESSING 90 GM TUBE TP SCH ×4 (15:09→21:48)
[2016-08-15] MEDS: CLOTRIMAZOLE/BETAMETASONE DIPROPIONATE 15 GM TUBE TP SCH ×2 (15:09→21:48)
[2016-08-15] MEDS: Z GUARD REMEDY 4 OZ OINT TP SCH ×4 (15:09→21:48)
--- NOTE | 2016-08-15 15:20 | NUR ---
Seen by Dr. Rafiq Diaz. Notified him that pt is sleepy. No new order.
[2016-08-15] MEDS: HYDROCODONE/APAP 10/325MG 1 EA TABLET GT SCH ×2 (15:39→21:15)
--- NOTE | 2016-08-15 15:43 | NUR ---
Pt arousable from sleep by verbal and tactile stimuli. No signs of distress noted. Pt responds by mouthing words.
--- NOTE | 2016-08-15 17:16 | NUR ---
Pt still sleepy but arousable by verbal and tactile stimuli. Offered dinner to pt, but he refused. He verbalized he is not hungry and will eat later.
[2016-08-15] MEDS: ATORVASTATIN CALCIUM 20MG TABLET GT SCH (21:15)
[2016-08-16 08:06] VITALS: BP 114/83
[2016-08-16] MEDS: HYDROGEL DRESSING 90 GM TUBE TP SCH ×4 (09:00→21:45)
[2016-08-16] MEDS: Z GUARD REMEDY 4 OZ OINT TP SCH ×4 (09:00→21:45)
[2016-08-16] MEDS: GENTAMICIN 0.1% OINT 15 GM TUBE TP SCH ×6 (09:00→21:45)
[2016-08-16] MEDS: ESCITALOPRAM OXALATE (10 MG) 10 MG TABLET GT SCH (09:16)
[2016-08-16] MEDS: BACLOFEN (10 MG) 10 MG TABLET GT SCH ×4 (09:16→21:12)
[2016-08-16] MEDS: CRANBERRY GT SCH (09:16)
[2016-08-16] MEDS: ACIDOPHILUS/BULGARICUS 1 EACH TAB.CHEW GT SCH ×3 (09:16→16:04)
[2016-08-16] MEDS: FAMOTIDINE (20 MG) 20 MG TABLET GT SCH ×2 (09:17→21:13)
[2016-08-16] MEDS: POLYETHYLENE GLYCOL 3350 17 GM POWD.PACK GT SCH (09:17)
[2016-08-16] MEDS: MULTIVIT, IRON, MIN NO. 8, FA 1 TAB GT SCH (09:17)
[2016-08-16] MEDS: CALCIUM CARBONATE 500 MG TAB.CHEW GT SCH ×3 (09:17→16:04)
[2016-08-16] MEDS: METOPROLOL TARTRATE 25 MG TABLET GT SCH ×2 (09:17→16:04)
[2016-08-16] MEDS: CLOPIDOGREL BISULFATE 75 MG TABLET PO SCH (09:17)
[2016-08-16] MEDS: ASCORBIC ACID 500 MG TABLET GT SCH ×2 (09:17→16:04)
[2016-08-16] MEDS: CALCITRIOL 0.25 MCG CAPSULE PO SCH (09:17)
[2016-08-16] MEDS: GABAPENTIN 600 MG TABLET GT SCH ×3 (09:17→16:04)
[2016-08-16] MEDS: PROSOURCE / PROSTAT (PYXIS) 30 ML UDC GT SCH (09:17)
[2016-08-16] MEDS: MINERAL OIL/PETROL OINT 396 GM JAR TP SCH ×3 (09:17→16:11)
[2016-08-16] MEDS: CLOTRIMAZOLE/BETAMETASONE DIPROPIONATE 15 GM TUBE TP SCH ×2 (09:18→21:45)
[2016-08-16] MEDS: HYDROGEN PEROXIDE 480 ML BOTTLE TP SCH ×2 (09:18→21:45)
[2016-08-16] MEDS: HYDROCODONE/APAP 10/325MG 1 EA TABLET GT SCH ×2 (15:20→21:13)
[2016-08-16 20:15] VITALS: BP 101/66
[2016-08-16] MEDS: ENOXAPARIN SODIUM 40 MG/0.4 ML DISP.SYRIN SQ SCH (21:13)
[2016-08-16] MEDS: ATORVASTATIN CALCIUM 20MG TABLET GT SCH (21:14)
[2016-08-16] MEDS: NEOMY SULF/BACITRAC ZN/POLY 15 GM TUBE TP SCH (21:45)
[2016-08-17 07:56] VITALS: BP 136/78
[2016-08-17] MEDS: Z GUARD REMEDY 4 OZ OINT TP SCH ×4 (09:00→21:46)
[2016-08-17] MEDS: NEOMY SULF/BACITRAC ZN/POLY 15 GM TUBE TP SCH ×2 (09:00→21:45)
[2016-08-17] MEDS: MINERAL OIL/PETROL OINT 396 GM JAR TP SCH ×3 (09:00→16:26)
[2016-08-17] MEDS: HYDROGEN PEROXIDE 480 ML BOTTLE TP SCH ×2 (09:00→21:45)
[2016-08-17] MEDS: CLOTRIMAZOLE/BETAMETASONE DIPROPIONATE 15 GM TUBE TP SCH ×2 (09:00→21:45)
[2016-08-17] MEDS: HYDROGEL DRESSING 90 GM TUBE TP SCH ×4 (09:00→21:45)
[2016-08-17] MEDS: CALCIUM CARBONATE 500 MG TAB.CHEW GT SCH ×3 (09:00→16:26)
[2016-08-17] MEDS: GENTAMICIN 0.1% OINT 15 GM TUBE TP SCH ×6 (09:00→21:45)
[2016-08-17] MEDS: ACIDOPHILUS/BULGARICUS 1 EACH TAB.CHEW GT SCH ×3 (09:13→16:25)
[2016-08-17] MEDS: CRANBERRY GT SCH (09:13)
[2016-08-17] MEDS: ESCITALOPRAM OXALATE (10 MG) 10 MG TABLET GT SCH (09:14)
[2016-08-17] MEDS: POLYETHYLENE GLYCOL 3350 17 GM POWD.PACK GT SCH (09:14)
[2016-08-17] MEDS: METOPROLOL TARTRATE 25 MG TABLET GT SCH ×2 (09:14→16:26)
[2016-08-17] MEDS: BACLOFEN (10 MG) 10 MG TABLET GT SCH ×4 (09:14→21:12)
[2016-08-17] MEDS: GABAPENTIN 600 MG TABLET GT SCH ×3 (09:14→16:26)
[2016-08-17] MEDS: HYDROCODONE/APAP 10/325MG 1 EA TABLET GT SCH ×2 (09:15→21:14)
[2016-08-17] MEDS: FAMOTIDINE (20 MG) 20 MG TABLET GT SCH ×2 (09:15→21:14)
[2016-08-17] MEDS: ASCORBIC ACID 500 MG TABLET GT SCH ×2 (09:16→16:26)
[2016-08-17] MEDS: PROSOURCE / PROSTAT (PYXIS) 30 ML UDC GT SCH (09:16)
[2016-08-17] MEDS: CALCITRIOL 0.25 MCG CAPSULE PO SCH (09:16)
[2016-08-17] MEDS: MULTIVIT, IRON, MIN NO. 8, FA 1 TAB GT SCH (09:16)
[2016-08-17] MEDS: CLOPIDOGREL BISULFATE 75 MG TABLET PO SCH (09:16)
[2016-08-17 20:18] VITALS: BP 101/66
[2016-08-17] MEDS: ATORVASTATIN CALCIUM 20MG TABLET GT SCH (21:14)
[2016-08-17] MEDS: ENOXAPARIN SODIUM 40 MG/0.4 ML DISP.SYRIN SQ SCH (21:14)
[2016-08-18 08:58] VITALS: BP 124/78
[2016-08-18] MEDS: BACLOFEN (10 MG) 10 MG TABLET GT SCH ×4 (09:46→20:35)
[2016-08-18] MEDS: CRANBERRY GT SCH (09:46)
[2016-08-18] MEDS: ACIDOPHILUS/BULGARICUS 1 EACH TAB.CHEW GT SCH ×3 (09:46→16:13)
[2016-08-18] MEDS: ESCITALOPRAM OXALATE (10 MG) 10 MG TABLET GT SCH (09:46)
[2016-08-18] MEDS: METOPROLOL TARTRATE 25 MG TABLET GT SCH ×2 (09:47→16:13)
[2016-08-18] MEDS: MINERAL OIL/PETROL OINT 396 GM JAR TP SCH ×3 (09:47→17:00)
[2016-08-18] MEDS: GABAPENTIN 600 MG TABLET GT SCH ×3 (09:47→17:00)
[2016-08-18] MEDS: POLYETHYLENE GLYCOL 3350 17 GM POWD.PACK GT SCH (09:47)
[2016-08-18] MEDS: HYDROGEL DRESSING 90 GM TUBE TP SCH ×4 (09:47→20:41)
[2016-08-18] MEDS: MULTIVIT, IRON, MIN NO. 8, FA 1 TAB GT SCH (09:47)
[2016-08-18] MEDS: PROSOURCE / PROSTAT (PYXIS) 30 ML UDC GT SCH (09:47)
[2016-08-18] MEDS: CLOPIDOGREL BISULFATE 75 MG TABLET PO SCH (09:47)
[2016-08-18] MEDS: HYDROCODONE/APAP 10/325MG 1 EA TABLET GT SCH ×2 (09:47→20:36)
[2016-08-18] MEDS: CALCIUM CARBONATE 500 MG TAB.CHEW GT SCH ×3 (09:47→17:00)
[2016-08-18] MEDS: CALCITRIOL 0.25 MCG CAPSULE PO SCH (09:47)
[2016-08-18] MEDS: FAMOTIDINE (20 MG) 20 MG TABLET GT SCH ×2 (09:47→20:36)
[2016-08-18] MEDS: ASCORBIC ACID 500 MG TABLET GT SCH ×2 (09:47→17:00)
[2016-08-18] MEDS: NEOMY SULF/BACITRAC ZN/POLY 15 GM TUBE TP SCH ×2 (09:48→20:42)
[2016-08-18] MEDS: Z GUARD REMEDY 4 OZ OINT TP SCH ×4 (09:48→20:42)
[2016-08-18] MEDS: GENTAMICIN 0.1% OINT 15 GM TUBE TP SCH ×6 (09:48→20:41)
[2016-08-18] MEDS: CLOTRIMAZOLE/BETAMETASONE DIPROPIONATE 15 GM TUBE TP SCH ×2 (09:48→20:41)
[2016-08-18] MEDS: HYDROGEN PEROXIDE 480 ML BOTTLE TP SCH ×2 (09:48→20:41)
[2016-08-18] MEDS: METHOCARBAMOL (750MG) 750 MG TABLET GT PRN (15:57)
[2016-08-18 20:15] VITALS: BP 100/65
[2016-08-18] MEDS: ENOXAPARIN SODIUM 40 MG/0.4 ML DISP.SYRIN SQ SCH (20:36)
[2016-08-18] MEDS: MAGNESIUM HYDROXIDE 30 ML UDC GT PRN (22:03)
[2016-08-18] MEDS: ATORVASTATIN CALCIUM 20MG TABLET GT SCH (22:03)
[2016-08-19] MEDS: METHOCARBAMOL (750MG) 750 MG TABLET GT PRN (04:39)
[2016-08-19] MEDS: ACETAMINOPHEN 650 MG/20 ML UDC- FOR SA PATIENTS ONLY GT PRN (04:39)
[2016-08-19 07:38] VITALS: BP 110/82
[2016-08-19] MEDS: HYDROGEN PEROXIDE 480 ML BOTTLE TP SCH ×2 (09:00→20:34)
[2016-08-19] MEDS: Z GUARD REMEDY 4 OZ OINT TP SCH ×4 (09:00→20:35)
[2016-08-19] MEDS: CLOTRIMAZOLE/BETAMETASONE DIPROPIONATE 15 GM TUBE TP SCH ×2 (09:00→20:34)
[2016-08-19] MEDS: GENTAMICIN 0.1% OINT 15 GM TUBE TP SCH ×6 (09:00→20:34)
[2016-08-19] MEDS: HYDROGEL DRESSING 90 GM TUBE TP SCH ×4 (09:00→20:34)
[2016-08-19] MEDS: NEOMY SULF/BACITRAC ZN/POLY 15 GM TUBE TP SCH ×2 (09:00→20:34)
[2016-08-19] MEDS: GABAPENTIN 600 MG TABLET GT SCH ×3 (09:48→17:51)
[2016-08-19] MEDS: BACLOFEN (10 MG) 10 MG TABLET GT SCH ×4 (09:48→20:33)
[2016-08-19] MEDS: POLYETHYLENE GLYCOL 3350 17 GM POWD.PACK GT SCH (09:48)
[2016-08-19] MEDS: ESCITALOPRAM OXALATE (10 MG) 10 MG TABLET GT SCH (09:48)
[2016-08-19] MEDS: METOPROLOL TARTRATE 25 MG TABLET GT SCH ×2 (09:48→17:49)
[2016-08-19] MEDS: CRANBERRY GT SCH (09:48)
[2016-08-19] MEDS: ACIDOPHILUS/BULGARICUS 1 EACH TAB.CHEW GT SCH ×3 (09:48→17:51)
[2016-08-19] MEDS: MINERAL OIL/PETROL OINT 396 GM JAR TP SCH ×3 (09:49→17:51)
[2016-08-19] MEDS: HYDROCODONE/APAP 10/325MG 1 EA TABLET GT SCH ×2 (09:49→20:34)
[2016-08-19] MEDS: MULTIVIT, IRON, MIN NO. 8, FA 1 TAB GT SCH (09:49)
[2016-08-19] MEDS: CALCITRIOL 0.25 MCG CAPSULE PO SCH (09:49)
[2016-08-19] MEDS: CALCIUM CARBONATE 500 MG TAB.CHEW GT SCH ×3 (09:49→17:51)
[2016-08-19] MEDS: PROSOURCE / PROSTAT (PYXIS) 30 ML UDC GT SCH (09:49)
[2016-08-19] MEDS: FAMOTIDINE (20 MG) 20 MG TABLET GT SCH ×2 (09:49→20:34)
[2016-08-19] MEDS: ASCORBIC ACID 500 MG TABLET GT SCH ×2 (09:49→17:49)
[2016-08-19] MEDS: CLOPIDOGREL BISULFATE 75 MG TABLET PO SCH (09:49)
--- NOTE | 2016-08-19 12:21 | NUR ---
Resident reminded about his haircut for Wednesday August 24, 2016 by kizzy Daniel. Appreciated the information.
[2016-08-19] MEDS: ENOXAPARIN SODIUM 40 MG/0.4 ML DISP.SYRIN SQ SCH (20:34)
[2016-08-19 20:36] VITALS: BP 97/55
[2016-08-19] MEDS: ATORVASTATIN CALCIUM 20MG TABLET GT SCH (22:14)
[2016-08-20] MEDS: HYDROCODONE/APAP 10/325MG 1 EA TABLET GT PRN (03:32)
[2016-08-20 07:36] VITALS: BP 108/61
[2016-08-20] MEDS: ESCITALOPRAM OXALATE (10 MG) 10 MG TABLET GT SCH (09:15)
[2016-08-20] MEDS: CRANBERRY GT SCH (09:15)
[2016-08-20] MEDS: ACIDOPHILUS/BULGARICUS 1 EACH TAB.CHEW GT SCH ×3 (09:15→16:12)
[2016-08-20] MEDS: BACLOFEN (10 MG) 10 MG TABLET GT SCH ×4 (09:15→20:20)
[2016-08-20] MEDS: CALCITRIOL 0.25 MCG CAPSULE PO SCH (09:16)
[2016-08-20] MEDS: POLYETHYLENE GLYCOL 3350 17 GM POWD.PACK GT SCH (09:16)
[2016-08-20] MEDS: MULTIVIT, IRON, MIN NO. 8, FA 1 TAB GT SCH (09:16)
[2016-08-20] MEDS: GABAPENTIN 600 MG TABLET GT SCH ×3 (09:16→16:13)
[2016-08-20] MEDS: ASCORBIC ACID 500 MG TABLET GT SCH ×2 (09:16→16:13)
[2016-08-20] MEDS: CALCIUM CARBONATE 500 MG TAB.CHEW GT SCH ×3 (09:16→16:13)
[2016-08-20] MEDS: METOPROLOL TARTRATE 25 MG TABLET GT SCH ×2 (09:16→16:13)
[2016-08-20] MEDS: FAMOTIDINE (20 MG) 20 MG TABLET GT SCH ×2 (09:16→20:20)
[2016-08-20] MEDS: PROSOURCE / PROSTAT (PYXIS) 30 ML UDC GT SCH (09:16)
[2016-08-20] MEDS: HYDROGEL DRESSING 90 GM TUBE TP SCH ×4 (09:16→20:21)
[2016-08-20] MEDS: MINERAL OIL/PETROL OINT 396 GM JAR TP SCH ×3 (09:16→16:13)
[2016-08-20] MEDS: CLOPIDOGREL BISULFATE 75 MG TABLET PO SCH (09:16)
[2016-08-20] MEDS: HYDROCODONE/APAP 10/325MG 1 EA TABLET GT SCH ×2 (09:16→20:20)
[2016-08-20] MEDS: CLOTRIMAZOLE/BETAMETASONE DIPROPIONATE 15 GM TUBE TP SCH ×2 (09:17→20:21)
[2016-08-20] MEDS: GENTAMICIN 0.1% OINT 15 GM TUBE TP SCH ×6 (09:17→20:21)
[2016-08-20] MEDS: HYDROGEN PEROXIDE 480 ML BOTTLE TP SCH ×2 (09:17→20:21)
[2016-08-20] MEDS: Z GUARD REMEDY 4 OZ OINT TP SCH ×4 (09:17→20:21)
[2016-08-20] MEDS: NEOMY SULF/BACITRAC ZN/POLY 15 GM TUBE TP SCH ×2 (09:17→20:21)
[2016-08-20] MEDS: ENOXAPARIN SODIUM 40 MG/0.4 ML DISP.SYRIN SQ SCH (20:20)
[2016-08-20 20:21] VITALS: BP 107/58
[2016-08-20] MEDS: ATORVASTATIN CALCIUM 20MG TABLET GT SCH (21:03)
[2016-08-21] MEDS: HYDROCODONE/APAP 10/325MG 1 EA TABLET GT PRN (04:09)
[2016-08-21 07:48] VITALS: BP 128/72
[2016-08-21] MEDS: MULTIVIT, IRON, MIN NO. 8, FA 1 TAB GT SCH (09:36)
[2016-08-21] MEDS: CALCIUM CARBONATE 500 MG TAB.CHEW GT SCH ×3 (09:36→16:59)
[2016-08-21] MEDS: PROSOURCE / PROSTAT (PYXIS) 30 ML UDC GT SCH (09:36)
[2016-08-21] MEDS: ESCITALOPRAM OXALATE (10 MG) 10 MG TABLET GT SCH (09:36)
[2016-08-21] MEDS: HYDROCODONE/APAP 10/325MG 1 EA TABLET GT SCH ×2 (09:36→21:00)
[2016-08-21] MEDS: GABAPENTIN 600 MG TABLET GT SCH ×3 (09:36→16:47)
[2016-08-21] MEDS: BACLOFEN (10 MG) 10 MG TABLET GT SCH ×4 (09:36→21:21)
[2016-08-21] MEDS: ASCORBIC ACID 500 MG TABLET GT SCH ×2 (09:36→16:46)
[2016-08-21] MEDS: ACIDOPHILUS/BULGARICUS 1 EACH TAB.CHEW GT SCH ×3 (09:36→16:47)
[2016-08-21] MEDS: FAMOTIDINE (20 MG) 20 MG TABLET GT SCH ×2 (09:36→21:21)
[2016-08-21] MEDS: POLYETHYLENE GLYCOL 3350 17 GM POWD.PACK GT SCH (09:36)
[2016-08-21] MEDS: CLOPIDOGREL BISULFATE 75 MG TABLET PO SCH (09:36)
[2016-08-21] MEDS: METOPROLOL TARTRATE 25 MG TABLET GT SCH ×2 (09:36→16:46)
[2016-08-21] MEDS: CRANBERRY GT SCH (09:36)
[2016-08-21] MEDS: CALCITRIOL 0.25 MCG CAPSULE PO SCH (09:37)
[2016-08-21] MEDS: MINERAL OIL/PETROL OINT 396 GM JAR TP SCH ×3 (09:37→16:47)
[2016-08-21] MEDS: Z GUARD REMEDY 4 OZ OINT TP SCH ×4 (09:42→21:24)
[2016-08-21] MEDS: HYDROGEN PEROXIDE 480 ML BOTTLE TP SCH ×2 (09:42→21:24)
[2016-08-21] MEDS: NEOMY SULF/BACITRAC ZN/POLY 15 GM TUBE TP SCH ×2 (09:42→21:24)
[2016-08-21] MEDS: HYDROGEL DRESSING 90 GM TUBE TP SCH ×4 (09:42→21:23)
[2016-08-21] MEDS: GENTAMICIN 0.1% OINT 15 GM TUBE TP SCH ×6 (09:42→21:24)
[2016-08-21] MEDS: CLOTRIMAZOLE/BETAMETASONE DIPROPIONATE 15 GM TUBE TP SCH ×2 (09:42→21:24)
[2016-08-21] MEDS: ENOXAPARIN SODIUM 40 MG/0.4 ML DISP.SYRIN SQ SCH (21:23)
[2016-08-21] MEDS: ATORVASTATIN CALCIUM 20MG TABLET GT SCH (21:24)
[2016-08-21 23:08] VITALS: BP 100/59
[2016-08-22] MEDS: ACIDOPHILUS/BULGARICUS 1 EACH TAB.CHEW GT SCH ×3 (09:17→17:22)
[2016-08-22] MEDS: ESCITALOPRAM OXALATE (10 MG) 10 MG TABLET GT SCH (09:17)
[2016-08-22] MEDS: BACLOFEN (10 MG) 10 MG TABLET GT SCH ×4 (09:17→21:10)
[2016-08-22] MEDS: CRANBERRY GT SCH (09:17)
[2016-08-22] MEDS: ASCORBIC ACID 500 MG TABLET GT SCH ×2 (09:18→17:22)
[2016-08-22] MEDS: POLYETHYLENE GLYCOL 3350 17 GM POWD.PACK GT SCH (09:18)
[2016-08-22] MEDS: HYDROCODONE/APAP 10/325MG 1 EA TABLET GT SCH ×2 (09:18→21:12)
[2016-08-22] MEDS: FAMOTIDINE (20 MG) 20 MG TABLET GT SCH ×2 (09:18→21:10)
[2016-08-22] MEDS: CALCIUM CARBONATE 500 MG TAB.CHEW GT SCH ×3 (09:18→17:22)
[2016-08-22] MEDS: HYDROGEL DRESSING 90 GM TUBE TP SCH ×4 (09:18→21:11)
[2016-08-22] MEDS: CALCITRIOL 0.25 MCG CAPSULE PO SCH (09:18)
[2016-08-22] MEDS: PROSOURCE / PROSTAT (PYXIS) 30 ML UDC GT SCH (09:18)
[2016-08-22] MEDS: METOPROLOL TARTRATE 25 MG TABLET GT SCH ×2 (09:18→17:22)
[2016-08-22] MEDS: MULTIVIT, IRON, MIN NO. 8, FA 1 TAB GT SCH (09:18)
[2016-08-22] MEDS: GABAPENTIN 600 MG TABLET GT SCH ×3 (09:18→17:22)
[2016-08-22] MEDS: CLOPIDOGREL BISULFATE 75 MG TABLET PO SCH (09:18)
[2016-08-22] MEDS: MINERAL OIL/PETROL OINT 396 GM JAR TP SCH ×3 (09:18→17:22)
[2016-08-22] MEDS: CLOTRIMAZOLE/BETAMETASONE DIPROPIONATE 15 GM TUBE TP SCH ×2 (09:19→21:11)
[2016-08-22] MEDS: NEOMY SULF/BACITRAC ZN/POLY 15 GM TUBE TP SCH ×2 (09:19→21:11)
[2016-08-22] MEDS: HYDROGEN PEROXIDE 480 ML BOTTLE TP SCH ×2 (09:19→21:11)
[2016-08-22] MEDS: Z GUARD REMEDY 4 OZ OINT TP SCH ×4 (09:19→21:11)
[2016-08-22] MEDS: GENTAMICIN 0.1% OINT 15 GM TUBE TP SCH ×6 (09:19→21:11)
[2016-08-22 19:52] VITALS: BP 101/62
[2016-08-22] MEDS: ATORVASTATIN CALCIUM 20MG TABLET GT SCH (21:11)
[2016-08-22] MEDS: ENOXAPARIN SODIUM 40 MG/0.4 ML DISP.SYRIN SQ SCH (21:11)
[2016-08-23 08:00] VITALS: BP 133/75
[2016-08-23] MEDS: CRANBERRY GT SCH (09:00)
[2016-08-23] MEDS: METOPROLOL TARTRATE 25 MG TABLET GT SCH ×2 (09:01→16:21)
[2016-08-23] MEDS: POLYETHYLENE GLYCOL 3350 17 GM POWD.PACK GT SCH (09:01)
[2016-08-23] MEDS: ESCITALOPRAM OXALATE (10 MG) 10 MG TABLET GT SCH (09:01)
[2016-08-23] MEDS: BACLOFEN (10 MG) 10 MG TABLET GT SCH ×4 (09:01→21:19)
[2016-08-23] MEDS: ACIDOPHILUS/BULGARICUS 1 EACH TAB.CHEW GT SCH ×3 (09:01→16:14)
[2016-08-23] MEDS: FAMOTIDINE (20 MG) 20 MG TABLET GT SCH ×2 (09:03→21:20)
[2016-08-23] MEDS: PROSOURCE / PROSTAT (PYXIS) 30 ML UDC GT SCH (09:03)
[2016-08-23] MEDS: MULTIVIT, IRON, MIN NO. 8, FA 1 TAB GT SCH (09:03)
[2016-08-23] MEDS: HYDROCODONE/APAP 10/325MG 1 EA TABLET GT SCH ×2 (09:03→21:20)
[2016-08-23] MEDS: GABAPENTIN 600 MG TABLET GT SCH ×3 (09:03→16:16)
[2016-08-23] MEDS: CALCIUM CARBONATE 500 MG TAB.CHEW GT SCH ×3 (09:03→16:22)
[2016-08-23] MEDS: ASCORBIC ACID 500 MG TABLET GT SCH ×2 (09:03→16:22)
[2016-08-23] MEDS: MINERAL OIL/PETROL OINT 396 GM JAR TP SCH ×3 (09:04→16:23)
[2016-08-23] MEDS: CALCITRIOL 0.25 MCG CAPSULE PO SCH (09:04)
[2016-08-23] MEDS: HYDROGEL DRESSING 90 GM TUBE TP SCH ×4 (09:04→21:59)
[2016-08-23] MEDS: HYDROGEN PEROXIDE 480 ML BOTTLE TP SCH ×2 (09:04→21:00)
[2016-08-23] MEDS: CLOPIDOGREL BISULFATE 75 MG TABLET PO SCH (09:04)
[2016-08-23] MEDS: GENTAMICIN 0.1% OINT 15 GM TUBE TP SCH ×6 (09:04→21:59)
[2016-08-23] MEDS: CLOTRIMAZOLE/BETAMETASONE DIPROPIONATE 15 GM TUBE TP SCH ×2 (09:04→21:00)
[2016-08-23] MEDS: Z GUARD REMEDY 4 OZ OINT TP SCH ×4 (09:05→21:00)
[2016-08-23] MEDS: NEOMY SULF/BACITRAC ZN/POLY 15 GM TUBE TP SCH ×2 (09:05→21:00)
[2016-08-23] MEDS: HYDROCODONE/APAP 10/325MG 1 EA TABLET GT PRN (14:45)
[2016-08-23 19:39] VITALS: BP 101/62
[2016-08-23] MEDS: ENOXAPARIN SODIUM 40 MG/0.4 ML DISP.SYRIN SQ SCH (21:20)
[2016-08-23] MEDS: ATORVASTATIN CALCIUM 20MG TABLET GT SCH (21:21)
[2016-08-24 08:50] VITALS: BP 145/75
[2016-08-24] MEDS: METOPROLOL TARTRATE 25 MG TABLET GT SCH ×2 (09:00→17:43)
[2016-08-24] MEDS: POLYETHYLENE GLYCOL 3350 17 GM POWD.PACK GT SCH (09:00)
[2016-08-24] MEDS: ESCITALOPRAM OXALATE (10 MG) 10 MG TABLET GT SCH (09:00)
[2016-08-24] MEDS: BACLOFEN (10 MG) 10 MG TABLET GT SCH ×4 (09:00→21:07)
[2016-08-24] MEDS: MINERAL OIL/PETROL OINT 396 GM JAR TP SCH ×3 (09:00→17:44)
[2016-08-24] MEDS: CLOTRIMAZOLE/BETAMETASONE DIPROPIONATE 15 GM TUBE TP SCH ×2 (09:00→21:41)
[2016-08-24] MEDS: NEOMY SULF/BACITRAC ZN/POLY 15 GM TUBE TP SCH ×2 (09:00→21:41)
[2016-08-24] MEDS: PROSOURCE / PROSTAT (PYXIS) 30 ML UDC GT SCH (09:00)
[2016-08-24] MEDS: FAMOTIDINE (20 MG) 20 MG TABLET GT SCH ×2 (09:00→21:08)
[2016-08-24] MEDS: CALCITRIOL 0.25 MCG CAPSULE PO SCH (09:00)
[2016-08-24] MEDS: CRANBERRY GT SCH (09:00)
[2016-08-24] MEDS: HYDROGEN PEROXIDE 480 ML BOTTLE TP SCH ×2 (09:00→21:40)
[2016-08-24] MEDS: ASCORBIC ACID 500 MG TABLET GT SCH ×2 (09:00→17:44)
[2016-08-24] MEDS: GENTAMICIN 0.1% OINT 15 GM TUBE TP SCH ×2 (09:00→21:40)
[2016-08-24] MEDS: MULTIVIT, IRON, MIN NO. 8, FA 1 TAB GT SCH (09:00)
[2016-08-24] MEDS: ACIDOPHILUS/BULGARICUS 1 EACH TAB.CHEW GT SCH ×3 (09:00→17:44)
[2016-08-24] MEDS: HYDROCODONE/APAP 10/325MG 1 EA TABLET GT SCH ×2 (09:00→21:08)
[2016-08-24] MEDS: CLOPIDOGREL BISULFATE 75 MG TABLET PO SCH (09:00)
[2016-08-24] MEDS: GABAPENTIN 600 MG TABLET GT SCH ×3 (09:00→17:44)
[2016-08-24] MEDS: CALCIUM CARBONATE 500 MG TAB.CHEW GT SCH ×3 (09:00→17:44)
[2016-08-24 20:18] VITALS: BP 96/62
[2016-08-24] MEDS: ATORVASTATIN CALCIUM 20MG TABLET GT SCH (21:08)
[2016-08-24] MEDS: ENOXAPARIN SODIUM 40 MG/0.4 ML DISP.SYRIN SQ SCH (21:08)
[2016-08-25 07:27] VITALS: BP 122/79
[2016-08-25] MEDS: CLOPIDOGREL BISULFATE 75 MG TABLET PO SCH (08:54)
[2016-08-25] MEDS: POLYETHYLENE GLYCOL 3350 17 GM POWD.PACK GT SCH (08:54)
[2016-08-25] MEDS: METOPROLOL TARTRATE 25 MG TABLET GT SCH ×2 (08:54→16:22)
[2016-08-25] MEDS: ESCITALOPRAM OXALATE (10 MG) 10 MG TABLET GT SCH (08:54)
[2016-08-25] MEDS: ASCORBIC ACID 500 MG TABLET GT SCH ×2 (08:54→16:23)
[2016-08-25] MEDS: CRANBERRY GT SCH (08:54)
[2016-08-25] MEDS: PROSOURCE / PROSTAT (PYXIS) 30 ML UDC GT SCH (08:54)
[2016-08-25] MEDS: MULTIVIT, IRON, MIN NO. 8, FA 1 TAB GT SCH (08:54)
[2016-08-25] MEDS: FAMOTIDINE (20 MG) 20 MG TABLET GT SCH ×2 (08:54→16:23)
[2016-08-25] MEDS: GABAPENTIN 600 MG TABLET GT SCH ×3 (08:54→16:24)
[2016-08-25] MEDS: BACLOFEN (10 MG) 10 MG TABLET GT SCH ×4 (08:54→21:00)
[2016-08-25] MEDS: HYDROCODONE/APAP 10/325MG 1 EA TABLET GT SCH ×2 (08:54→21:00)
[2016-08-25] MEDS: CALCIUM CARBONATE 500 MG TAB.CHEW GT SCH ×3 (08:54→16:24)
[2016-08-25] MEDS: ACIDOPHILUS/BULGARICUS 1 EACH TAB.CHEW GT SCH ×3 (08:54→16:24)
[2016-08-25] MEDS: CALCITRIOL 0.25 MCG CAPSULE PO SCH (08:55)
[2016-08-25] MEDS: MINERAL OIL/PETROL OINT 396 GM JAR TP SCH ×3 (08:55→16:24)
[2016-08-25] MEDS: HYDROGEN PEROXIDE 480 ML BOTTLE TP SCH ×2 (09:00→21:00)
[2016-08-25] MEDS: NEOMY SULF/BACITRAC ZN/POLY 15 GM TUBE TP SCH ×2 (09:00→21:00)
[2016-08-25] MEDS: CLOTRIMAZOLE/BETAMETASONE DIPROPIONATE 15 GM TUBE TP SCH ×2 (09:00→21:00)
[2016-08-25] MEDS: GENTAMICIN 0.1% OINT 15 GM TUBE TP SCH ×2 (09:00→21:00)
[2016-08-25 20:08] VITALS: BP 124/84
[2016-08-25] MEDS: ENOXAPARIN SODIUM 40 MG/0.4 ML DISP.SYRIN SQ SCH (21:00)
[2016-08-25] MEDS: ATORVASTATIN CALCIUM 20MG TABLET GT SCH (22:00)
[2016-08-26] MEDS: HYDROCODONE/APAP 10/325MG 1 EA TABLET GT PRN ×2 (03:35→17:48)
[2016-08-26 07:40] VITALS: BP 119/73
[2016-08-26] MEDS: HYDROGEN PEROXIDE 480 ML BOTTLE TP SCH ×2 (09:00→21:35)
[2016-08-26] MEDS: NEOMY SULF/BACITRAC ZN/POLY 15 GM TUBE TP SCH ×2 (09:00→21:35)
[2016-08-26] MEDS: CRANBERRY GT SCH (09:19)
[2016-08-26] MEDS: GABAPENTIN 600 MG TABLET GT SCH ×3 (09:19→17:47)
[2016-08-26] MEDS: POLYETHYLENE GLYCOL 3350 17 GM POWD.PACK GT SCH (09:19)
[2016-08-26] MEDS: ESCITALOPRAM OXALATE (10 MG) 10 MG TABLET GT SCH (09:19)
[2016-08-26] MEDS: METOPROLOL TARTRATE 25 MG TABLET GT SCH ×2 (09:19→17:47)
[2016-08-26] MEDS: BACLOFEN (10 MG) 10 MG TABLET GT SCH ×4 (09:19→21:34)
[2016-08-26] MEDS: ACIDOPHILUS/BULGARICUS 1 EACH TAB.CHEW GT SCH ×3 (09:19→17:47)
[2016-08-26] MEDS: FAMOTIDINE (20 MG) 20 MG TABLET GT SCH ×2 (09:20→21:34)
[2016-08-26] MEDS: CALCIUM CARBONATE 500 MG TAB.CHEW GT SCH ×3 (09:20→17:47)
[2016-08-26] MEDS: GENTAMICIN 0.1% OINT 15 GM TUBE TP SCH ×2 (09:20→21:35)
[2016-08-26] MEDS: CLOPIDOGREL BISULFATE 75 MG TABLET PO SCH (09:20)
[2016-08-26] MEDS: ASCORBIC ACID 500 MG TABLET GT SCH ×2 (09:20→17:47)
[2016-08-26] MEDS: PROSOURCE / PROSTAT (PYXIS) 30 ML UDC GT SCH (09:20)
[2016-08-26] MEDS: CALCITRIOL 0.25 MCG CAPSULE PO SCH (09:20)
[2016-08-26] MEDS: MINERAL OIL/PETROL OINT 396 GM JAR TP SCH ×3 (09:20→17:47)
[2016-08-26] MEDS: HYDROCODONE/APAP 10/325MG 1 EA TABLET GT SCH ×2 (09:20→21:34)
[2016-08-26] MEDS: MULTIVIT, IRON, MIN NO. 8, FA 1 TAB GT SCH (09:20)
[2016-08-26] MEDS: CLOTRIMAZOLE/BETAMETASONE DIPROPIONATE 15 GM TUBE TP SCH ×2 (11:00→21:35)
[2016-08-26 20:10] VITALS: BP 93/61
[2016-08-26] MEDS: ATORVASTATIN CALCIUM 20MG TABLET GT SCH (21:35)
[2016-08-26] MEDS: ENOXAPARIN SODIUM 40 MG/0.4 ML DISP.SYRIN SQ SCH (21:35)
[2016-08-27 07:44] VITALS: BP 110/75
[2016-08-27] MEDS: HYDROCODONE/APAP 10/325MG 1 EA TABLET GT PRN (08:00)
[2016-08-27] MEDS: BACLOFEN (10 MG) 10 MG TABLET GT SCH ×4 (08:03→21:33)
[2016-08-27] MEDS: ACIDOPHILUS/BULGARICUS 1 EACH TAB.CHEW GT SCH ×3 (08:03→17:28)
[2016-08-27] MEDS: ESCITALOPRAM OXALATE (10 MG) 10 MG TABLET GT SCH (08:03)
[2016-08-27] MEDS: GABAPENTIN 600 MG TABLET GT SCH ×3 (08:03→17:28)
[2016-08-27] MEDS: POLYETHYLENE GLYCOL 3350 17 GM POWD.PACK GT SCH (08:03)
[2016-08-27] MEDS: METOPROLOL TARTRATE 25 MG TABLET GT SCH ×2 (08:03→17:28)
[2016-08-27] MEDS: CRANBERRY GT SCH (08:03)
[2016-08-27] MEDS: MULTIVIT, IRON, MIN NO. 8, FA 1 TAB GT SCH (08:04)
[2016-08-27] MEDS: FAMOTIDINE (20 MG) 20 MG TABLET GT SCH ×2 (08:04→21:33)
[2016-08-27] MEDS: ASCORBIC ACID 500 MG TABLET GT SCH ×2 (08:04→17:29)
[2016-08-27] MEDS: PROSOURCE / PROSTAT (PYXIS) 30 ML UDC GT SCH (08:04)
[2016-08-27] MEDS: CALCITRIOL 0.25 MCG CAPSULE PO SCH (08:04)
[2016-08-27] MEDS: CLOPIDOGREL BISULFATE 75 MG TABLET PO SCH (08:04)
[2016-08-27] MEDS: CALCIUM CARBONATE 500 MG TAB.CHEW GT SCH ×3 (08:04→17:29)
[2016-08-27] MEDS: MINERAL OIL/PETROL OINT 396 GM JAR TP SCH ×3 (13:00→17:29)
[2016-08-27] MEDS: HYDROCODONE/APAP 10/325MG 1 EA TABLET GT SCH ×2 (14:00→21:33)
[2016-08-27] MEDS: CLOTRIMAZOLE/BETAMETASONE DIPROPIONATE 15 GM TUBE TP SCH ×2 (15:00→21:34)
[2016-08-27] MEDS: GENTAMICIN 0.1% OINT 15 GM TUBE TP SCH ×2 (15:00→21:34)
[2016-08-27] MEDS: NEOMY SULF/BACITRAC ZN/POLY 15 GM TUBE TP SCH ×2 (15:00→21:34)
[2016-08-27] MEDS: HYDROGEN PEROXIDE 480 ML BOTTLE TP SCH ×2 (15:00→21:34)
[2016-08-27] MEDS: ENOXAPARIN SODIUM 40 MG/0.4 ML DISP.SYRIN SQ SCH (21:34)
[2016-08-27] MEDS: ATORVASTATIN CALCIUM 20MG TABLET GT SCH (21:34)
[2016-08-27 21:36] VITALS: BP 105/52
[2016-08-28] MEDS: HYDROCODONE/APAP 10/325MG 1 EA TABLET GT PRN ×2 (02:30→16:00)
[2016-08-28 07:51] VITALS: BP 114/75
[2016-08-28] MEDS: CRANBERRY GT SCH (08:42)
[2016-08-28] MEDS: ACIDOPHILUS/BULGARICUS 1 EACH TAB.CHEW GT SCH ×3 (08:42→16:32)
[2016-08-28] MEDS: ESCITALOPRAM OXALATE (10 MG) 10 MG TABLET GT SCH (08:42)
[2016-08-28] MEDS: CALCITRIOL 0.25 MCG CAPSULE PO SCH (08:43)
[2016-08-28] MEDS: POLYETHYLENE GLYCOL 3350 17 GM POWD.PACK GT SCH (08:43)
[2016-08-28] MEDS: BACLOFEN (10 MG) 10 MG TABLET GT SCH ×4 (08:43→21:11)
[2016-08-28] MEDS: CALCIUM CARBONATE 500 MG TAB.CHEW GT SCH ×3 (08:43→16:33)
[2016-08-28] MEDS: PROSOURCE / PROSTAT (PYXIS) 30 ML UDC GT SCH (08:43)
[2016-08-28] MEDS: HYDROCODONE/APAP 10/325MG 1 EA TABLET GT SCH ×3 (08:43→21:11)
[2016-08-28] MEDS: CLOPIDOGREL BISULFATE 75 MG TABLET PO SCH (08:43)
[2016-08-28] MEDS: ASCORBIC ACID 500 MG TABLET GT SCH ×2 (08:43→16:33)
[2016-08-28] MEDS: FAMOTIDINE (20 MG) 20 MG TABLET GT SCH ×2 (08:43→21:11)
[2016-08-28] MEDS: MULTIVIT, IRON, MIN NO. 8, FA 1 TAB GT SCH (08:43)
[2016-08-28] MEDS: METOPROLOL TARTRATE 25 MG TABLET GT SCH ×2 (08:43→16:33)
[2016-08-28] MEDS: GABAPENTIN 600 MG TABLET GT SCH ×3 (08:43→16:33)
[2016-08-28] MEDS: NEOMY SULF/BACITRAC ZN/POLY 15 GM TUBE TP SCH ×2 (09:39→21:12)
[2016-08-28] MEDS: HYDROGEN PEROXIDE 480 ML BOTTLE TP SCH ×2 (09:39→21:12)
[2016-08-28] MEDS: GENTAMICIN 0.1% OINT 15 GM TUBE TP SCH ×2 (09:39→21:12)
[2016-08-28] MEDS: CLOTRIMAZOLE/BETAMETASONE DIPROPIONATE 15 GM TUBE TP SCH ×2 (09:39→21:12)
[2016-08-28] MEDS: MINERAL OIL/PETROL OINT 396 GM JAR TP SCH ×3 (09:39→16:33)
[2016-08-28 19:58] VITALS: BP 130/80
[2016-08-28] MEDS: ENOXAPARIN SODIUM 40 MG/0.4 ML DISP.SYRIN SQ SCH (21:12)
[2016-08-28] MEDS: ATORVASTATIN CALCIUM 20MG TABLET GT SCH (21:12)
[2016-08-29] MEDS: FAMOTIDINE (20 MG) 20 MG TABLET GT SCH ×2 (08:45→21:11)
[2016-08-29] MEDS: ESCITALOPRAM OXALATE (10 MG) 10 MG TABLET GT SCH (08:45)
[2016-08-29] MEDS: ACIDOPHILUS/BULGARICUS 1 EACH TAB.CHEW GT SCH ×3 (08:45→17:06)
[2016-08-29] MEDS: CALCITRIOL 0.25 MCG CAPSULE PO SCH (08:45)
[2016-08-29] MEDS: CRANBERRY GT SCH (08:45)
[2016-08-29] MEDS: CALCIUM CARBONATE 500 MG TAB.CHEW GT SCH ×3 (08:45→17:06)
[2016-08-29] MEDS: MULTIVIT, IRON, MIN NO. 8, FA 1 TAB GT SCH (08:45)
[2016-08-29] MEDS: PROSOURCE / PROSTAT (PYXIS) 30 ML UDC GT SCH (08:45)
[2016-08-29] MEDS: BACLOFEN (10 MG) 10 MG TABLET GT SCH ×4 (08:45→21:10)
[2016-08-29] MEDS: CLOPIDOGREL BISULFATE 75 MG TABLET PO SCH (08:45)
[2016-08-29] MEDS: ASCORBIC ACID 500 MG TABLET GT SCH ×2 (08:45→17:06)
[2016-08-29] MEDS: GABAPENTIN 600 MG TABLET GT SCH ×3 (08:45→17:06)
[2016-08-29] MEDS: POLYETHYLENE GLYCOL 3350 17 GM POWD.PACK GT SCH (08:45)
[2016-08-29] MEDS: METOPROLOL TARTRATE 25 MG TABLET GT SCH ×2 (08:45→17:06)
[2016-08-29] MEDS: HYDROCODONE/APAP 10/325MG 1 EA TABLET GT PRN (09:00)
[2016-08-29] MEDS: MINERAL OIL/PETROL OINT 396 GM JAR TP SCH ×3 (13:00→17:09)
[2016-08-29] MEDS: HYDROCODONE/APAP 10/325MG 1 EA TABLET GT SCH ×2 (14:00→21:11)
[2016-08-29] MEDS: HYDROGEN PEROXIDE 480 ML BOTTLE TP SCH ×2 (15:00→21:11)
[2016-08-29] MEDS: NEOMY SULF/BACITRAC ZN/POLY 15 GM TUBE TP SCH ×2 (15:00→21:11)
[2016-08-29] MEDS: CLOTRIMAZOLE/BETAMETASONE DIPROPIONATE 15 GM TUBE TP SCH ×2 (15:00→21:11)
[2016-08-29] MEDS: GENTAMICIN 0.1% OINT 15 GM TUBE TP SCH ×2 (15:00→21:11)
[2016-08-29 19:53] VITALS: BP 113/64
[2016-08-29] MEDS: ATORVASTATIN CALCIUM 20MG TABLET GT SCH (21:11)
[2016-08-29] MEDS: ENOXAPARIN SODIUM 40 MG/0.4 ML DISP.SYRIN SQ SCH (21:11)
[2016-08-30] MEDS: HYDROCODONE/APAP 10/325MG 1 EA TABLET GT PRN (08:30)
[2016-08-30] MEDS: BACLOFEN (10 MG) 10 MG TABLET GT SCH ×4 (08:36→21:09)
[2016-08-30] MEDS: CRANBERRY GT SCH (08:36)
[2016-08-30] MEDS: ACIDOPHILUS/BULGARICUS 1 EACH TAB.CHEW GT SCH ×3 (08:36→16:23)
[2016-08-30] MEDS: ESCITALOPRAM OXALATE (10 MG) 10 MG TABLET GT SCH (08:36)
[2016-08-30] MEDS: PROSOURCE / PROSTAT (PYXIS) 30 ML UDC GT SCH (08:37)
[2016-08-30] MEDS: CLOPIDOGREL BISULFATE 75 MG TABLET PO SCH (08:37)
[2016-08-30] MEDS: CALCITRIOL 0.25 MCG CAPSULE PO SCH (08:37)
[2016-08-30] MEDS: MULTIVIT, IRON, MIN NO. 8, FA 1 TAB GT SCH (08:37)
[2016-08-30] MEDS: ASCORBIC ACID 500 MG TABLET GT SCH ×2 (08:37→16:26)
[2016-08-30] MEDS: FAMOTIDINE (20 MG) 20 MG TABLET GT SCH ×2 (08:37→21:09)
[2016-08-30] MEDS: POLYETHYLENE GLYCOL 3350 17 GM POWD.PACK GT SCH (08:37)
[2016-08-30] MEDS: CALCIUM CARBONATE 500 MG TAB.CHEW GT SCH ×3 (08:37→16:26)
[2016-08-30] MEDS: GABAPENTIN 600 MG TABLET GT SCH ×3 (08:37→16:26)
[2016-08-30] MEDS: METOPROLOL TARTRATE 25 MG TABLET GT SCH ×2 (08:37→16:25)
[2016-08-30 09:05] VITALS: BP 148/79
--- NOTE | 2016-08-30 12:25 | NUR ---
Per charge nurse, customer experience retail clerk Dr Dread De La Vega, DPM came to see the resident yesterday.
--- NOTE | 2016-08-30 12:34 | NUR ---
Late entry for 08/29/[address] De La Vega. He trimmed pt's toenail. Pt tolerated procedure well.
[2016-08-30] MEDS: MINERAL OIL/PETROL OINT 396 GM JAR TP SCH ×3 (13:00→16:26)
[2016-08-30] MEDS: HYDROCODONE/APAP 10/325MG 1 EA TABLET GT SCH ×2 (13:00→21:09)
[2016-08-30] MEDS: HYDROGEN PEROXIDE 480 ML BOTTLE TP SCH ×2 (14:00→21:10)
[2016-08-30] MEDS: CLOTRIMAZOLE/BETAMETASONE DIPROPIONATE 15 GM TUBE TP SCH ×2 (14:00→21:10)
[2016-08-30] MEDS: GENTAMICIN 0.1% OINT 15 GM TUBE TP SCH ×2 (14:00→21:10)
[2016-08-30] MEDS: NEOMY SULF/BACITRAC ZN/POLY 15 GM TUBE TP SCH (14:00)
--- NOTE | 2016-08-30 16:34 | NUR ---
Reminded Dr. Rafiq Diaz about pt's sutures on the right lateral eyelid. He said he will remove the sutures on 09/01/16.
[2016-08-30 19:57] VITALS: BP 105/73
[2016-08-30] MEDS: ATORVASTATIN CALCIUM 20MG TABLET GT SCH (21:10)
[2016-08-30] MEDS: ENOXAPARIN SODIUM 40 MG/0.4 ML DISP.SYRIN SQ SCH (21:10)
[2016-08-31 08:00] VITALS: BP 138/72
[2016-08-31] MEDS: BACLOFEN (10 MG) 10 MG TABLET GT SCH ×4 (09:49→21:11)
[2016-08-31] MEDS: CRANBERRY GT SCH (09:49)
[2016-08-31] MEDS: ACIDOPHILUS/BULGARICUS 1 EACH TAB.CHEW GT SCH ×3 (09:49→17:00)
[2016-08-31] MEDS: ESCITALOPRAM OXALATE (10 MG) 10 MG TABLET GT SCH (09:49)
[2016-08-31] MEDS: METOPROLOL TARTRATE 25 MG TABLET GT SCH ×2 (09:51→17:00)
[2016-08-31] MEDS: MULTIVIT, IRON, MIN NO. 8, FA 1 TAB GT SCH (09:52)
[2016-08-31] MEDS: GABAPENTIN 600 MG TABLET GT SCH ×3 (09:52→17:00)
[2016-08-31] MEDS: CALCIUM CARBONATE 500 MG TAB.CHEW GT SCH ×3 (09:52→17:00)
[2016-08-31] MEDS: ASCORBIC ACID 500 MG TABLET GT SCH ×2 (09:52→17:00)
[2016-08-31] MEDS: POLYETHYLENE GLYCOL 3350 17 GM POWD.PACK GT SCH (09:52)
[2016-08-31] MEDS: CALCITRIOL 0.25 MCG CAPSULE PO SCH (09:52)
[2016-08-31] MEDS: MINERAL OIL/PETROL OINT 396 GM JAR TP SCH ×3 (09:52→17:00)
[2016-08-31] MEDS: CLOPIDOGREL BISULFATE 75 MG TABLET PO SCH (09:52)
[2016-08-31] MEDS: FAMOTIDINE (20 MG) 20 MG TABLET GT SCH ×2 (09:52→21:11)
[2016-08-31] MEDS: PROSOURCE / PROSTAT (PYXIS) 30 ML UDC GT SCH (09:52)
[2016-08-31] MEDS: HYDROCODONE/APAP 10/325MG 1 EA TABLET GT SCH ×2 (13:31→21:11)
[2016-08-31] MEDS: GENTAMICIN 0.1% OINT 15 GM TUBE TP SCH ×4 (14:31→21:13)
[2016-08-31] MEDS: HYDROGEN PEROXIDE 480 ML BOTTLE TP SCH ×2 (14:31→21:13)
[2016-08-31] MEDS: CLOTRIMAZOLE/BETAMETASONE DIPROPIONATE 15 GM TUBE TP SCH ×2 (14:31→21:13)
--- NOTE | 2016-08-31 14:37 | NUR ---
Resident asked to see the SW. He stated that he saw this cream called Dermol on the television and is interested in getting the cream. He stated it is for the skin issues he has. SW looked it up and it is a hydrocortisone topical. SW informed him that she will ask the charge nurse to ask the doctor and will then notify vzawwn-cd-bta if she is able to obtain it for him. Charge nurse reported that she will ask the doctor.
[2016-08-31 20:00] VITALS: BP 103/62
[2016-08-31] MEDS ORDERED: Z GUARD REMEDY 2 OZ OINT TP PRN ×2 (21:00)
[2016-08-31] MEDS ORDERED: GENTAMICIN 0.1% OINT 15 GM TUBE TP PRN ×2 (21:00)
[2016-08-31] MEDS ORDERED: HYDROGEL DRESSING 90 GM TUBE TP PRN ×2 (21:00)
[2016-08-31] MEDS: ENOXAPARIN SODIUM 40 MG/0.4 ML DISP.SYRIN SQ SCH (21:12)
[2016-08-31] MEDS: HYDROGEL DRESSING 90 GM TUBE TP SCH ×2 (21:12)
[2016-08-31] MEDS: Z GUARD REMEDY 2 OZ OINT TP SCH ×3 (21:13)
[2016-08-31] MEDS: METHOCARBAMOL (750MG) 750 MG TABLET GT PRN (21:14)
[2016-08-31] MEDS: ATORVASTATIN CALCIUM 20MG TABLET GT SCH (21:14)
[2016-08-31] MEDS: MAGNESIUM HYDROXIDE 30 ML UDC GT PRN (21:15)
[2016-09-01] MEDS: HYDROCODONE/APAP 10/325MG 1 EA TABLET GT PRN (04:17)
[2016-09-01 08:04] VITALS: BP 134/72
[2016-09-01] MEDS: BACLOFEN (10 MG) 10 MG TABLET GT SCH ×4 (09:41→21:23)
[2016-09-01] MEDS: ACIDOPHILUS/BULGARICUS 1 EACH TAB.CHEW GT SCH ×3 (09:41→17:00)
[2016-09-01] MEDS: CRANBERRY GT SCH (09:41)
[2016-09-01] MEDS: ESCITALOPRAM OXALATE (10 MG) 10 MG TABLET GT SCH (09:41)
[2016-09-01] MEDS: GABAPENTIN 600 MG TABLET GT SCH ×3 (09:42→17:00)
[2016-09-01] MEDS: PROSOURCE / PROSTAT (PYXIS) 30 ML UDC GT SCH (09:42)
[2016-09-01] MEDS: CLOPIDOGREL BISULFATE 75 MG TABLET PO SCH (09:42)
[2016-09-01] MEDS: MULTIVIT, IRON, MIN NO. 8, FA 1 TAB GT SCH (09:42)
[2016-09-01] MEDS: ASCORBIC ACID 500 MG TABLET GT SCH ×2 (09:42→17:00)
[2016-09-01] MEDS: CALCIUM CARBONATE 500 MG TAB.CHEW GT SCH ×3 (09:42→17:00)
[2016-09-01] MEDS: FAMOTIDINE (20 MG) 20 MG TABLET GT SCH ×2 (09:42→21:23)
[2016-09-01] MEDS: HYDROCODONE/APAP 10/325MG 1 EA TABLET GT SCH ×2 (09:42→21:23)
[2016-09-01] MEDS: POLYETHYLENE GLYCOL 3350 17 GM POWD.PACK GT SCH (09:42)
[2016-09-01] MEDS: CALCITRIOL 0.25 MCG CAPSULE PO SCH (09:42)
[2016-09-01] MEDS: METOPROLOL TARTRATE 25 MG TABLET GT SCH ×2 (09:42→17:00)
[2016-09-01] MEDS: HYDROGEL DRESSING 90 GM TUBE TP SCH ×4 (10:15→21:24)
[2016-09-01] MEDS: GENTAMICIN 0.1% OINT 15 GM TUBE TP SCH ×6 (10:15→21:24)
[2016-09-01] MEDS: MINERAL OIL/PETROL OINT 396 GM JAR TP SCH ×3 (10:15→17:00)
[2016-09-01] MEDS: HYDROGEN PEROXIDE 480 ML BOTTLE TP SCH ×2 (10:15→21:24)
[2016-09-01] MEDS: CLOTRIMAZOLE/BETAMETASONE DIPROPIONATE 15 GM TUBE TP SCH ×2 (10:15→21:24)
[2016-09-01] MEDS: Z GUARD REMEDY 2 OZ OINT TP SCH ×6 (10:15→21:24)
--- NOTE | 2016-09-01 15:00 | NUR ---
Dr. Rafiq Diaz removed sutures from right lateral eyelid. Showed him lesion on pt's left medial knee. Received order to apply triple antibiotic ointment.
[2016-09-01 19:50] VITALS: BP 108/58
[2016-09-01] MEDS: ENOXAPARIN SODIUM 40 MG/0.4 ML DISP.SYRIN SQ SCH (21:23)
[2016-09-01] MEDS: ATORVASTATIN CALCIUM 20MG TABLET GT SCH (21:24)
[2016-09-02] MEDS: HYDROCODONE/APAP 10/325MG 1 EA TABLET GT PRN (06:07)
[2016-09-02 07:47] VITALS: BP 109/67
[2016-09-02] MEDS: ACIDOPHILUS/BULGARICUS 1 EACH TAB.CHEW GT SCH ×3 (09:46→17:00)
[2016-09-02] MEDS: BACLOFEN (10 MG) 10 MG TABLET GT SCH ×4 (09:46→21:49)
[2016-09-02] MEDS: CRANBERRY GT SCH (09:46)
[2016-09-02] MEDS: ESCITALOPRAM OXALATE (10 MG) 10 MG TABLET GT SCH (09:46)
[2016-09-02] MEDS: GABAPENTIN 600 MG TABLET GT SCH ×3 (09:47→17:00)
[2016-09-02] MEDS: FAMOTIDINE (20 MG) 20 MG TABLET GT SCH ×2 (09:47→21:50)
[2016-09-02] MEDS: POLYETHYLENE GLYCOL 3350 17 GM POWD.PACK GT SCH (09:47)
[2016-09-02] MEDS: CALCITRIOL 0.25 MCG CAPSULE PO SCH (09:47)
[2016-09-02] MEDS: ASCORBIC ACID 500 MG TABLET GT SCH ×2 (09:47→17:00)
[2016-09-02] MEDS: METOPROLOL TARTRATE 25 MG TABLET GT SCH ×2 (09:47→17:00)
[2016-09-02] MEDS: MULTIVIT, IRON, MIN NO. 8, FA 1 TAB GT SCH (09:47)
[2016-09-02] MEDS: CLOPIDOGREL BISULFATE 75 MG TABLET PO SCH (09:47)
[2016-09-02] MEDS: CALCIUM CARBONATE 500 MG TAB.CHEW GT SCH ×3 (09:47→17:00)
[2016-09-02] MEDS: PROSOURCE / PROSTAT (PYXIS) 30 ML UDC GT SCH (09:47)
[2016-09-02] MEDS: HYDROCODONE/APAP 10/325MG 1 EA TABLET GT SCH ×2 (10:00→21:50)
[2016-09-02] MEDS: MINERAL OIL/PETROL OINT 396 GM JAR TP SCH ×3 (10:00→17:00)
[2016-09-02] MEDS: HYDROGEL DRESSING 90 GM TUBE TP SCH ×4 (10:30→21:50)
[2016-09-02] MEDS: Z GUARD REMEDY 2 OZ OINT TP SCH ×6 (10:30→21:51)
[2016-09-02] MEDS: CLOTRIMAZOLE/BETAMETASONE DIPROPIONATE 15 GM TUBE TP SCH ×2 (10:30→21:51)
[2016-09-02] MEDS: GENTAMICIN 0.1% OINT 15 GM TUBE TP SCH ×6 (10:30→21:50)
[2016-09-02] MEDS: HYDROGEN PEROXIDE 480 ML BOTTLE TP SCH ×2 (10:30→21:50)
[2016-09-02] MEDS: MAGNESIUM HYDROXIDE 30 ML UDC GT PRN (18:19)
[2016-09-02 19:35] VITALS: BP 109/72
[2016-09-02] MEDS: ENOXAPARIN SODIUM 40 MG/0.4 ML DISP.SYRIN SQ SCH (21:50)
[2016-09-02] MEDS: ATORVASTATIN CALCIUM 20MG TABLET GT SCH (21:51)
[2016-09-03] MEDS: HYDROCODONE/APAP 10/325MG 1 EA TABLET GT PRN (03:55)
[2016-09-03 07:47] VITALS: BP 119/71
[2016-09-03] MEDS: METOPROLOL TARTRATE 25 MG TABLET GT SCH ×2 (09:00→17:00)
[2016-09-03] MEDS: ACIDOPHILUS/BULGARICUS 1 EACH TAB.CHEW GT SCH ×3 (09:43→17:07)
[2016-09-03] MEDS: POLYETHYLENE GLYCOL 3350 17 GM POWD.PACK GT SCH (09:43)
[2016-09-03] MEDS: CRANBERRY GT SCH (09:43)
[2016-09-03] MEDS: ESCITALOPRAM OXALATE (10 MG) 10 MG TABLET GT SCH (09:43)
[2016-09-03] MEDS: BACLOFEN (10 MG) 10 MG TABLET GT SCH ×4 (09:43→21:05)
[2016-09-03] MEDS: ASCORBIC ACID 500 MG TABLET GT SCH ×2 (09:44→17:07)
[2016-09-03] MEDS: PROSOURCE / PROSTAT (PYXIS) 30 ML UDC GT SCH (09:44)
[2016-09-03] MEDS: HYDROCODONE/APAP 10/325MG 1 EA TABLET GT SCH ×2 (09:44→21:05)
[2016-09-03] MEDS: FAMOTIDINE (20 MG) 20 MG TABLET GT SCH ×2 (09:44→21:05)
[2016-09-03] MEDS: CLOPIDOGREL BISULFATE 75 MG TABLET PO SCH (09:44)
[2016-09-03] MEDS: CALCITRIOL 0.25 MCG CAPSULE PO SCH (09:44)
[2016-09-03] MEDS: MULTIVIT, IRON, MIN NO. 8, FA 1 TAB GT SCH (09:44)
[2016-09-03] MEDS: GABAPENTIN 600 MG TABLET GT SCH ×3 (09:44→17:07)
[2016-09-03] MEDS: CALCIUM CARBONATE 500 MG TAB.CHEW GT SCH ×3 (09:44→17:07)
[2016-09-03] MEDS: Z GUARD REMEDY 2 OZ OINT TP SCH ×6 (10:15→21:09)
[2016-09-03] MEDS: HYDROGEN PEROXIDE 480 ML BOTTLE TP SCH ×2 (10:15→21:08)
[2016-09-03] MEDS: HYDROGEL DRESSING 90 GM TUBE TP SCH ×4 (10:15→21:07)
[2016-09-03] MEDS: CLOTRIMAZOLE/BETAMETASONE DIPROPIONATE 15 GM TUBE TP SCH ×2 (10:15→21:08)
[2016-09-03] MEDS: GENTAMICIN 0.1% OINT 15 GM TUBE TP SCH ×6 (10:15→21:08)
[2016-09-03] MEDS: MINERAL OIL/PETROL OINT 396 GM JAR TP SCH ×3 (10:15→17:07)
--- NOTE | 2016-09-03 10:20 | NUR ---
Seen and examined by Dr Walker with no new order.
[2016-09-03 19:52] VITALS: BP 102/58
[2016-09-03] MEDS: ENOXAPARIN SODIUM 40 MG/0.4 ML DISP.SYRIN SQ SCH (21:07)
[2016-09-03] MEDS: ATORVASTATIN CALCIUM 20MG TABLET GT SCH (21:09)
[2016-09-04] MEDS: HYDROCODONE/APAP 10/325MG 1 EA TABLET GT PRN (03:07)
[2016-09-04 07:50] VITALS: BP 125/78
[2016-09-04] MEDS: ACIDOPHILUS/BULGARICUS 1 EACH TAB.CHEW GT SCH ×3 (09:19→16:43)
[2016-09-04] MEDS: BACLOFEN (10 MG) 10 MG TABLET GT SCH ×4 (09:19→21:19)
[2016-09-04] MEDS: CRANBERRY GT SCH (09:19)
[2016-09-04] MEDS: ESCITALOPRAM OXALATE (10 MG) 10 MG TABLET GT SCH (09:19)
[2016-09-04] MEDS: METOPROLOL TARTRATE 25 MG TABLET GT SCH ×2 (09:20→16:44)
[2016-09-04] MEDS: POLYETHYLENE GLYCOL 3350 17 GM POWD.PACK GT SCH (09:20)
[2016-09-04] MEDS: GABAPENTIN 600 MG TABLET GT SCH ×3 (09:20→16:43)
[2016-09-04] MEDS: HYDROCODONE/APAP 10/325MG 1 EA TABLET GT SCH ×2 (09:20→21:44)
[2016-09-04] MEDS: CALCITRIOL 0.25 MCG CAPSULE PO SCH (09:21)
[2016-09-04] MEDS: PROSOURCE / PROSTAT (PYXIS) 30 ML UDC GT SCH (09:21)
[2016-09-04] MEDS: FAMOTIDINE (20 MG) 20 MG TABLET GT SCH ×2 (09:21→21:19)
[2016-09-04] MEDS: MULTIVIT, IRON, MIN NO. 8, FA 1 TAB GT SCH (09:21)
[2016-09-04] MEDS: CALCIUM CARBONATE 500 MG TAB.CHEW GT SCH ×3 (09:21→16:43)
[2016-09-04] MEDS: CLOPIDOGREL BISULFATE 75 MG TABLET PO SCH (09:21)
[2016-09-04] MEDS: ASCORBIC ACID 500 MG TABLET GT SCH ×2 (09:21→16:43)
[2016-09-04] MEDS: HYDROGEL DRESSING 90 GM TUBE TP SCH ×4 (09:33→21:19)
[2016-09-04] MEDS: GENTAMICIN 0.1% OINT 15 GM TUBE TP SCH ×6 (09:33→21:20)
[2016-09-04] MEDS: MINERAL OIL/PETROL OINT 396 GM JAR TP SCH ×3 (09:33→16:43)
[2016-09-04] MEDS: HYDROGEN PEROXIDE 480 ML BOTTLE TP SCH ×2 (09:34→21:20)
[2016-09-04] MEDS: CLOTRIMAZOLE/BETAMETASONE DIPROPIONATE 15 GM TUBE TP SCH ×2 (09:34→21:20)
[2016-09-04] MEDS: Z GUARD REMEDY 2 OZ OINT TP SCH ×6 (09:34→21:20)
[2016-09-04 19:54] VITALS: BP 112/69
[2016-09-04] MEDS: ENOXAPARIN SODIUM 40 MG/0.4 ML DISP.SYRIN SQ SCH (21:19)
[2016-09-04] MEDS: ATORVASTATIN CALCIUM 20MG TABLET GT SCH (21:20)
[2016-09-05] MEDS: HYDROCODONE/APAP 10/325MG 1 EA TABLET GT PRN (03:07)
[2016-09-05 07:49] VITALS: BP 109/85
[2016-09-05] MEDS: CRANBERRY GT SCH (09:58)
[2016-09-05] MEDS: POLYETHYLENE GLYCOL 3350 17 GM POWD.PACK GT SCH (09:58)
[2016-09-05] MEDS: BACLOFEN (10 MG) 10 MG TABLET GT SCH ×4 (09:58→21:08)
[2016-09-05] MEDS: HYDROCODONE/APAP 10/325MG 1 EA TABLET GT SCH ×2 (09:58→21:13)
[2016-09-05] MEDS: METOPROLOL TARTRATE 25 MG TABLET GT SCH ×2 (09:58→17:38)
[2016-09-05] MEDS: GABAPENTIN 600 MG TABLET GT SCH ×3 (09:58→17:40)
[2016-09-05] MEDS: ACIDOPHILUS/BULGARICUS 1 EACH TAB.CHEW GT SCH ×3 (09:58→17:40)
[2016-09-05] MEDS: ESCITALOPRAM OXALATE (10 MG) 10 MG TABLET GT SCH (09:58)
[2016-09-05] MEDS: MULTIVIT, IRON, MIN NO. 8, FA 1 TAB GT SCH (09:59)
[2016-09-05] MEDS: ASCORBIC ACID 500 MG TABLET GT SCH ×2 (09:59→17:38)
[2016-09-05] MEDS: CALCITRIOL 0.25 MCG CAPSULE PO SCH (09:59)
[2016-09-05] MEDS: PROSOURCE / PROSTAT (PYXIS) 30 ML UDC GT SCH (09:59)
[2016-09-05] MEDS: FAMOTIDINE (20 MG) 20 MG TABLET GT SCH ×2 (09:59→21:08)
[2016-09-05] MEDS: CALCIUM CARBONATE 500 MG TAB.CHEW GT SCH ×3 (09:59→17:40)
[2016-09-05] MEDS: CLOPIDOGREL BISULFATE 75 MG TABLET PO SCH (09:59)
[2016-09-05] MEDS: MINERAL OIL/PETROL OINT 396 GM JAR TP SCH ×3 (10:00→17:40)
[2016-09-05] MEDS: CLOTRIMAZOLE/BETAMETASONE DIPROPIONATE 15 GM TUBE TP SCH ×2 (10:00→21:09)
[2016-09-05] MEDS: HYDROGEL DRESSING 90 GM TUBE TP SCH ×4 (10:00→21:08)
[2016-09-05] MEDS: HYDROGEN PEROXIDE 480 ML BOTTLE TP SCH ×2 (10:00→21:09)
[2016-09-05] MEDS: GENTAMICIN 0.1% OINT 15 GM TUBE TP SCH ×6 (10:00→21:08)
[2016-09-05] MEDS: Z GUARD REMEDY 2 OZ OINT TP SCH ×6 (10:00→21:09)
[2016-09-05] MEDS: ENOXAPARIN SODIUM 40 MG/0.4 ML DISP.SYRIN SQ SCH (21:08)
[2016-09-05] MEDS: ATORVASTATIN CALCIUM 20MG TABLET GT SCH (21:09)
[2016-09-06 07:54] VITALS: BP 132/72
[2016-09-06] MEDS: ACIDOPHILUS/BULGARICUS 1 EACH TAB.CHEW GT SCH ×3 (09:33→17:33)
[2016-09-06] MEDS: BACLOFEN (10 MG) 10 MG TABLET GT SCH ×4 (09:33→21:20)
[2016-09-06] MEDS: ESCITALOPRAM OXALATE (10 MG) 10 MG TABLET GT SCH (09:33)
[2016-09-06] MEDS: CRANBERRY GT SCH (09:33)
[2016-09-06] MEDS: MULTIVIT, IRON, MIN NO. 8, FA 1 TAB GT SCH (09:34)
[2016-09-06] MEDS: GABAPENTIN 600 MG TABLET GT SCH ×3 (09:34→17:33)
[2016-09-06] MEDS: HYDROGEL DRESSING 90 GM TUBE TP SCH ×4 (09:34→21:21)
[2016-09-06] MEDS: FAMOTIDINE (20 MG) 20 MG TABLET GT SCH ×2 (09:34→21:21)
[2016-09-06] MEDS: PROSOURCE / PROSTAT (PYXIS) 30 ML UDC GT SCH (09:34)
[2016-09-06] MEDS: CLOPIDOGREL BISULFATE 75 MG TABLET PO SCH (09:34)
[2016-09-06] MEDS: POLYETHYLENE GLYCOL 3350 17 GM POWD.PACK GT SCH (09:34)
[2016-09-06] MEDS: HYDROCODONE/APAP 10/325MG 1 EA TABLET GT SCH ×2 (09:34→21:21)
[2016-09-06] MEDS: MINERAL OIL/PETROL OINT 396 GM JAR TP SCH ×3 (09:34→17:33)
[2016-09-06] MEDS: METOPROLOL TARTRATE 25 MG TABLET GT SCH ×2 (09:34→17:33)
[2016-09-06] MEDS: CALCITRIOL 0.25 MCG CAPSULE PO SCH (09:34)
[2016-09-06] MEDS: CALCIUM CARBONATE 500 MG TAB.CHEW GT SCH ×3 (09:34→17:33)
[2016-09-06] MEDS: ASCORBIC ACID 500 MG TABLET GT SCH ×2 (09:34→17:33)
[2016-09-06] MEDS: Z GUARD REMEDY 2 OZ OINT TP SCH ×6 (09:35→21:22)
[2016-09-06] MEDS: GENTAMICIN 0.1% OINT 15 GM TUBE TP SCH ×6 (09:35→21:21)
[2016-09-06] MEDS: CLOTRIMAZOLE/BETAMETASONE DIPROPIONATE 15 GM TUBE TP SCH ×2 (09:35→21:21)
[2016-09-06] MEDS: HYDROGEN PEROXIDE 480 ML BOTTLE TP SCH ×2 (09:35→21:21)
[2016-09-06 20:03] VITALS: BP 99/53
[2016-09-06] MEDS: ENOXAPARIN SODIUM 40 MG/0.4 ML DISP.SYRIN SQ SCH (21:21)
[2016-09-06] MEDS: ATORVASTATIN CALCIUM 20MG TABLET GT SCH (21:22)
[2016-09-07 08:10] VITALS: BP 130/70
[2016-09-07] MEDS: ESCITALOPRAM OXALATE (10 MG) 10 MG TABLET GT SCH (09:56)
[2016-09-07] MEDS: ACIDOPHILUS/BULGARICUS 1 EACH TAB.CHEW GT SCH ×3 (09:56→17:00)
[2016-09-07] MEDS: CRANBERRY GT SCH (09:56)
[2016-09-07] MEDS: BACLOFEN (10 MG) 10 MG TABLET GT SCH ×4 (09:56→21:38)
[2016-09-07] MEDS: PROSOURCE / PROSTAT (PYXIS) 30 ML UDC GT SCH (09:57)
[2016-09-07] MEDS: FAMOTIDINE (20 MG) 20 MG TABLET GT SCH ×2 (09:57→21:38)
[2016-09-07] MEDS: METOPROLOL TARTRATE 25 MG TABLET GT SCH ×2 (09:57→17:00)
[2016-09-07] MEDS: MINERAL OIL/PETROL OINT 396 GM JAR TP SCH ×3 (09:57→17:00)
[2016-09-07] MEDS: GABAPENTIN 600 MG TABLET GT SCH ×3 (09:57→17:00)
[2016-09-07] MEDS: MULTIVIT, IRON, MIN NO. 8, FA 1 TAB GT SCH (09:57)
[2016-09-07] MEDS: POLYETHYLENE GLYCOL 3350 17 GM POWD.PACK GT SCH (09:57)
[2016-09-07] MEDS: ASCORBIC ACID 500 MG TABLET GT SCH ×2 (09:57→17:00)
[2016-09-07] MEDS: CLOPIDOGREL BISULFATE 75 MG TABLET PO SCH (09:57)
[2016-09-07] MEDS: CALCITRIOL 0.25 MCG CAPSULE PO SCH (09:57)
[2016-09-07] MEDS: CALCIUM CARBONATE 500 MG TAB.CHEW GT SCH ×3 (09:57→17:00)
[2016-09-07] MEDS: HYDROCODONE/APAP 10/325MG 1 EA TABLET GT PRN (09:58)
[2016-09-07] MEDS: HYDROCODONE/APAP 10/325MG 1 EA TABLET GT SCH ×2 (12:49→22:00)
[2016-09-07] MEDS: Z GUARD REMEDY 2 OZ OINT TP SCH ×6 (13:50→22:30)
[2016-09-07] MEDS: HYDROGEL DRESSING 90 GM TUBE TP SCH ×4 (13:50→22:30)
[2016-09-07] MEDS: HYDROGEN PEROXIDE 480 ML BOTTLE TP SCH ×2 (13:50→22:30)
[2016-09-07] MEDS: GENTAMICIN 0.1% OINT 15 GM TUBE TP SCH ×6 (13:50→22:30)
[2016-09-07] MEDS: CLOTRIMAZOLE/BETAMETASONE DIPROPIONATE 15 GM TUBE TP SCH ×2 (13:50→22:30)
--- NOTE | 2016-09-07 15:30 | NUR ---
Behavior monitoring for positive behavior: Patient is awake alert responsive to verbal stimuli. Premedicated for pain prior to wound care. Noted with behavior while doing wound care stating "cannot breath" "Call 911" patient with pmv on and oxygen as ordered skin is warm and dry, with no cyanosis noted, asked patient if ok to suction and remove the pmv patient stated "no" "I am fine" "why do you take too long to do my treatment." Patient was explained prior to wound care and explained again that today was measurement date and picture day of the wounds. Patient stated "I want to see my pictures. " Patient made aware pictures of his wounds will be shown to him. "Patient stated "No, I want to see pictures of you naked." "I want you to sing and dance naked." Two nursing staff with patient all times. Patient teaching provided that his request is not appropriate. Patient verbalized understanding. Wound care continued to be provided as per patient allowed. Total care provided. Kept clean and comfortable. Suctioned as needed. After all care provided patient said "Thank you" to both nursing staff. RN maintenance mechanic supervisor aware.
[2016-09-07 20:11] VITALS: BP 105/58
[2016-09-07] MEDS: ATORVASTATIN CALCIUM 20MG TABLET GT SCH (21:38)
[2016-09-07] MEDS: ENOXAPARIN SODIUM 40 MG/0.4 ML DISP.SYRIN SQ SCH (21:38)
[2016-09-08] MEDS: HYDROCODONE/APAP 10/325MG 1 EA TABLET GT PRN (02:28)
[2016-09-08] MEDS: MAGNESIUM HYDROXIDE 30 ML UDC GT PRN (07:12)
[2016-09-08 07:46] VITALS: BP 108/58
[2016-09-08] MEDS: CRANBERRY GT SCH (09:22)
[2016-09-08] MEDS: FAMOTIDINE (20 MG) 20 MG TABLET GT SCH ×2 (09:23→21:03)
[2016-09-08] MEDS: ACIDOPHILUS/BULGARICUS 1 EACH TAB.CHEW GT SCH ×3 (09:23→17:00)
[2016-09-08] MEDS: MULTIVIT, IRON, MIN NO. 8, FA 1 TAB GT SCH (09:23)
[2016-09-08] MEDS: CALCIUM CARBONATE 500 MG TAB.CHEW GT SCH ×3 (09:23→17:00)
[2016-09-08] MEDS: HYDROCODONE/APAP 10/325MG 1 EA TABLET GT SCH ×2 (09:23→21:00)
[2016-09-08] MEDS: PROSOURCE / PROSTAT (PYXIS) 30 ML UDC GT SCH (09:23)
[2016-09-08] MEDS: POLYETHYLENE GLYCOL 3350 17 GM POWD.PACK GT SCH (09:23)
[2016-09-08] MEDS: CALCITRIOL 0.25 MCG CAPSULE PO SCH (09:23)
[2016-09-08] MEDS: BACLOFEN (10 MG) 10 MG TABLET GT SCH ×4 (09:23→21:03)
[2016-09-08] MEDS: ESCITALOPRAM OXALATE (10 MG) 10 MG TABLET GT SCH (09:23)
[2016-09-08] MEDS: GABAPENTIN 600 MG TABLET GT SCH ×3 (09:23→17:00)
[2016-09-08] MEDS: ASCORBIC ACID 500 MG TABLET GT SCH ×2 (09:23→17:00)
[2016-09-08] MEDS: METOPROLOL TARTRATE 25 MG TABLET GT SCH ×2 (09:23→17:00)
[2016-09-08] MEDS: CLOPIDOGREL BISULFATE 75 MG TABLET PO SCH (09:23)
[2016-09-08] MEDS: Z GUARD REMEDY 2 OZ OINT TP SCH ×6 (10:00→21:05)
[2016-09-08] MEDS: GENTAMICIN 0.1% OINT 15 GM TUBE TP SCH ×6 (10:00→21:04)
[2016-09-08] MEDS: CLOTRIMAZOLE/BETAMETASONE DIPROPIONATE 15 GM TUBE TP SCH ×2 (10:00→21:04)
[2016-09-08] MEDS: MINERAL OIL/PETROL OINT 396 GM JAR TP SCH ×3 (10:00→17:00)
[2016-09-08] MEDS: HYDROGEL DRESSING 90 GM TUBE TP SCH ×4 (10:00→21:04)
[2016-09-08] MEDS: HYDROGEN PEROXIDE 480 ML BOTTLE TP SCH ×2 (10:00→21:04)
[2016-09-08 20:01] VITALS: BP 96/60
[2016-09-08] MEDS: ENOXAPARIN SODIUM 40 MG/0.4 ML DISP.SYRIN SQ SCH (21:04)
[2016-09-08] MEDS: ATORVASTATIN CALCIUM 20MG TABLET GT SCH (21:05)
[2016-09-09] MEDS: HYDROCODONE/APAP 10/325MG 1 EA TABLET GT PRN (05:12)
[2016-09-09 07:44] VITALS: BP 144/68
[2016-09-09] MEDS: HYDROCODONE/APAP 10/325MG 1 EA TABLET GT SCH ×2 (09:19→22:00)
[2016-09-09] MEDS: ACIDOPHILUS/BULGARICUS 1 EACH TAB.CHEW GT SCH ×3 (09:19→17:03)
[2016-09-09] MEDS: CRANBERRY GT SCH (09:19)
[2016-09-09] MEDS: BACLOFEN (10 MG) 10 MG TABLET GT SCH ×4 (09:19→21:34)
[2016-09-09] MEDS: ESCITALOPRAM OXALATE (10 MG) 10 MG TABLET GT SCH (09:19)
[2016-09-09] MEDS: POLYETHYLENE GLYCOL 3350 17 GM POWD.PACK GT SCH (09:19)
[2016-09-09] MEDS: METOPROLOL TARTRATE 25 MG TABLET GT SCH ×2 (09:19→17:04)
[2016-09-09] MEDS: GABAPENTIN 600 MG TABLET GT SCH ×3 (09:19→17:04)
[2016-09-09] MEDS: MULTIVIT, IRON, MIN NO. 8, FA 1 TAB GT SCH (09:20)
[2016-09-09] MEDS: ASCORBIC ACID 500 MG TABLET GT SCH ×2 (09:20→17:04)
[2016-09-09] MEDS: CALCITRIOL 0.25 MCG CAPSULE PO SCH (09:20)
[2016-09-09] MEDS: CALCIUM CARBONATE 500 MG TAB.CHEW GT SCH ×3 (09:20→17:04)
[2016-09-09] MEDS: PROSOURCE / PROSTAT (PYXIS) 30 ML UDC GT SCH (09:20)
[2016-09-09] MEDS: FAMOTIDINE (20 MG) 20 MG TABLET GT SCH ×2 (09:20→21:34)
[2016-09-09] MEDS: CLOPIDOGREL BISULFATE 75 MG TABLET PO SCH (09:20)
[2016-09-09] MEDS: MINERAL OIL/PETROL OINT 396 GM JAR TP SCH ×3 (09:50→17:04)
[2016-09-09] MEDS: CLOTRIMAZOLE/BETAMETASONE DIPROPIONATE 15 GM TUBE TP SCH ×2 (09:50→22:30)
[2016-09-09] MEDS: Z GUARD REMEDY 2 OZ OINT TP SCH ×6 (09:50→22:30)
[2016-09-09] MEDS: HYDROGEL DRESSING 90 GM TUBE TP SCH ×4 (09:50→22:30)
[2016-09-09] MEDS: HYDROGEN PEROXIDE 480 ML BOTTLE TP SCH ×2 (09:50→22:30)
[2016-09-09] MEDS: GENTAMICIN 0.1% OINT 15 GM TUBE TP SCH ×6 (09:50→22:30)
[2016-09-09 20:54] VITALS: BP 117/70
[2016-09-09] MEDS: ENOXAPARIN SODIUM 40 MG/0.4 ML DISP.SYRIN SQ SCH (21:00)
[2016-09-09] MEDS: ATORVASTATIN CALCIUM 20MG TABLET GT SCH (21:35)
[2016-09-10] MEDS: HYDROCODONE/APAP 10/325MG 1 EA TABLET GT PRN (04:57)
[2016-09-10 08:09] VITALS: BP 150/89
[2016-09-10] MEDS: CRANBERRY GT SCH (09:24)
[2016-09-10] MEDS: ACIDOPHILUS/BULGARICUS 1 EACH TAB.CHEW GT SCH ×3 (09:24→16:36)
[2016-09-10] MEDS: ESCITALOPRAM OXALATE (10 MG) 10 MG TABLET GT SCH (09:25)
[2016-09-10] MEDS: POLYETHYLENE GLYCOL 3350 17 GM POWD.PACK GT SCH (09:25)
[2016-09-10] MEDS: BACLOFEN (10 MG) 10 MG TABLET GT SCH ×4 (09:25→21:35)
[2016-09-10] MEDS: MULTIVIT, IRON, MIN NO. 8, FA 1 TAB GT SCH (09:25)
[2016-09-10] MEDS: METOPROLOL TARTRATE 25 MG TABLET GT SCH ×2 (09:25→16:36)
[2016-09-10] MEDS: CLOPIDOGREL BISULFATE 75 MG TABLET PO SCH (09:25)
[2016-09-10] MEDS: FAMOTIDINE (20 MG) 20 MG TABLET GT SCH ×2 (09:25→21:35)
[2016-09-10] MEDS: CALCITRIOL 0.25 MCG CAPSULE PO SCH (09:25)
[2016-09-10] MEDS: GABAPENTIN 600 MG TABLET GT SCH ×3 (09:25→16:36)
[2016-09-10] MEDS: PROSOURCE / PROSTAT (PYXIS) 30 ML UDC GT SCH (09:25)
[2016-09-10] MEDS: CALCIUM CARBONATE 500 MG TAB.CHEW GT SCH ×3 (09:25→16:36)
[2016-09-10] MEDS: ASCORBIC ACID 500 MG TABLET GT SCH ×2 (09:25→16:37)
[2016-09-10] MEDS: HYDROCODONE/APAP 10/325MG 1 EA TABLET GT SCH ×2 (09:25→22:30)
[2016-09-10] MEDS: MINERAL OIL/PETROL OINT 396 GM JAR TP SCH ×3 (10:00→16:37)
[2016-09-10] MEDS: HYDROGEN PEROXIDE 480 ML BOTTLE TP SCH ×2 (10:00→23:00)
[2016-09-10] MEDS: Z GUARD REMEDY 2 OZ OINT TP SCH ×6 (10:00→23:00)
[2016-09-10] MEDS: HYDROGEL DRESSING 90 GM TUBE TP SCH ×4 (10:00→23:00)
[2016-09-10] MEDS: GENTAMICIN 0.1% OINT 15 GM TUBE TP SCH ×5 (10:00→23:00)
[2016-09-10] MEDS: CLOTRIMAZOLE/BETAMETASONE DIPROPIONATE 15 GM TUBE TP SCH (10:00)
[2016-09-10 20:07] VITALS: BP 91/56
[2016-09-10] MEDS: ENOXAPARIN SODIUM 40 MG/0.4 ML DISP.SYRIN SQ SCH (21:36)
[2016-09-10] MEDS: ATORVASTATIN CALCIUM 20MG TABLET GT SCH (22:00)
[2016-09-11 07:44] VITALS: BP 108/74
[2016-09-11] MEDS: METOPROLOL TARTRATE 25 MG TABLET GT SCH ×2 (09:00→18:25)
[2016-09-11] MEDS: ESCITALOPRAM OXALATE (10 MG) 10 MG TABLET GT SCH (09:34)
[2016-09-11] MEDS: CRANBERRY GT SCH (09:34)
[2016-09-11] MEDS: BACLOFEN (10 MG) 10 MG TABLET GT SCH ×3 (09:34→20:48)
[2016-09-11] MEDS: ACIDOPHILUS/BULGARICUS 1 EACH TAB.CHEW GT SCH ×2 (09:34→18:25)
[2016-09-11] MEDS: ASCORBIC ACID 500 MG TABLET GT SCH ×2 (09:35→18:25)
[2016-09-11] MEDS: CLOPIDOGREL BISULFATE 75 MG TABLET PO SCH (09:35)
[2016-09-11] MEDS: MULTIVIT, IRON, MIN NO. 8, FA 1 TAB GT SCH (09:35)
[2016-09-11] MEDS: POLYETHYLENE GLYCOL 3350 17 GM POWD.PACK GT SCH (09:35)
[2016-09-11] MEDS: CALCIUM CARBONATE 500 MG TAB.CHEW GT SCH ×3 (09:35→17:00)
[2016-09-11] MEDS: PROSOURCE / PROSTAT (PYXIS) 30 ML UDC GT SCH (09:35)
[2016-09-11] MEDS: CALCITRIOL 0.25 MCG CAPSULE PO SCH (09:35)
[2016-09-11] MEDS: GABAPENTIN 600 MG TABLET GT SCH ×3 (09:35→18:25)
[2016-09-11] MEDS: FAMOTIDINE (20 MG) 20 MG TABLET GT SCH ×3 (09:35→21:18)
[2016-09-11] MEDS: HYDROCODONE/APAP 10/325MG 1 EA TABLET GT PRN (10:37)
[2016-09-11] MEDS ORDERED: ALBUTEROL HALF STRENGTH 1.25 MG/3 ML VIAL.NEB NEB PRN (14:00)
[2016-09-11] MEDS: HYDROGEL DRESSING 90 GM TUBE TP SCH ×4 (14:00→20:49)
[2016-09-11] MEDS ORDERED: IPRATROPIUM NEB FS 0.5 MG/2.5 ML AMPUL.NEB NEB PRN (14:00)
[2016-09-11] MEDS: GENTAMICIN 0.1% OINT 15 GM TUBE TP SCH ×4 (14:00→20:49)
[2016-09-11] MEDS ORDERED: BISACODYL SUPP (10 MG) 10 MG/SUPP.RECT SUPP.RECT RC PRN (14:00)
[2016-09-11] MEDS: Z GUARD REMEDY 2 OZ OINT TP SCH ×5 (14:00→20:50)
[2016-09-11] MEDS ORDERED: ONDANSETRON 4 MG TAB.RAPDIS GT PRN (14:00)
[2016-09-11] MEDS: HYDROCODONE/APAP 10/325MG 1 EA TABLET GT SCH (15:13)
[2016-09-11] MEDS: MINERAL OIL/PETROL OINT 396 GM JAR TP SCH (18:25)
[2016-09-11 19:55] VITALS: BP 120/79
[2016-09-11] MEDS: ENOXAPARIN SODIUM 40 MG/0.4 ML DISP.SYRIN SQ SCH (20:48)
[2016-09-11] MEDS: HYDROGEN PEROXIDE 480 ML BOTTLE TP SCH (20:49)
[2016-09-11] MEDS: ATORVASTATIN CALCIUM 20MG TABLET GT SCH (21:18)
[2016-09-12 08:11] VITALS: BP 102/77
[2016-09-12] MEDS: CRANBERRY GT SCH (08:31)
[2016-09-12] MEDS: ESCITALOPRAM OXALATE (10 MG) 10 MG TABLET GT SCH (08:32)
[2016-09-12] MEDS: POLYETHYLENE GLYCOL 3350 17 GM POWD.PACK GT SCH (08:32)
[2016-09-12] MEDS: CALCIUM CARBONATE 500 MG TAB.CHEW GT SCH ×3 (08:32→17:00)
[2016-09-12] MEDS: FAMOTIDINE (20 MG) 20 MG TABLET GT SCH ×2 (08:32→20:40)
[2016-09-12] MEDS: MULTIVIT, IRON, MIN NO. 8, FA 1 TAB GT SCH (08:32)
[2016-09-12] MEDS: METOPROLOL TARTRATE 25 MG TABLET GT SCH ×2 (08:32→17:00)
[2016-09-12] MEDS: ASCORBIC ACID 500 MG TABLET GT SCH ×2 (08:32→17:00)
[2016-09-12] MEDS: ACIDOPHILUS/BULGARICUS 1 EACH TAB.CHEW GT SCH ×3 (08:32→17:00)
[2016-09-12] MEDS: GABAPENTIN 600 MG TABLET GT SCH ×3 (08:32→17:00)
[2016-09-12] MEDS: PROSOURCE / PROSTAT (PYXIS) 30 ML UDC GT SCH (08:32)
[2016-09-12] MEDS: BACLOFEN (10 MG) 10 MG TABLET GT SCH ×4 (08:32→20:40)
[2016-09-12] MEDS: CALCITRIOL 0.25 MCG CAPSULE PO SCH (08:33)
[2016-09-12] MEDS: CLOPIDOGREL BISULFATE 75 MG TABLET PO SCH (08:33)
[2016-09-12] MEDS: HYDROCODONE/APAP 10/325MG 1 EA TABLET GT PRN (08:36)
[2016-09-12] MEDS: GENTAMICIN 0.1% OINT 15 GM TUBE TP SCH ×4 (09:00→20:41)
[2016-09-12] MEDS: MINERAL OIL/PETROL OINT 396 GM JAR TP SCH ×3 (13:00→17:00)
[2016-09-12] MEDS: HYDROCODONE/APAP 10/325MG 1 EA TABLET GT SCH ×2 (14:45→20:40)
[2016-09-12] MEDS: Z GUARD REMEDY 2 OZ OINT TP SCH ×6 (15:30→20:41)
[2016-09-12] MEDS: HYDROGEL DRESSING 90 GM TUBE TP SCH ×4 (15:30→20:40)
[2016-09-12] MEDS: HYDROGEN PEROXIDE 480 ML BOTTLE TP SCH ×2 (15:30→20:41)
[2016-09-12 19:50] VITALS: BP 101/72
[2016-09-12] MEDS: ENOXAPARIN SODIUM 40 MG/0.4 ML DISP.SYRIN SQ SCH (20:40)
[2016-09-12] MEDS: ATORVASTATIN CALCIUM 20MG TABLET GT SCH (22:14)
[2016-09-13 08:15] VITALS: BP 148/78
[2016-09-13] MEDS: CRANBERRY GT SCH (08:55)
[2016-09-13] MEDS: BACLOFEN (10 MG) 10 MG TABLET GT SCH ×4 (08:55→20:55)
[2016-09-13] MEDS: ACIDOPHILUS/BULGARICUS 1 EACH TAB.CHEW GT SCH ×3 (08:55→17:24)
[2016-09-13] MEDS: ESCITALOPRAM OXALATE (10 MG) 10 MG TABLET GT SCH (08:55)
[2016-09-13] MEDS: CLOPIDOGREL BISULFATE 75 MG TABLET PO SCH (08:56)
[2016-09-13] MEDS: PROSOURCE / PROSTAT (PYXIS) 30 ML UDC GT SCH (08:56)
[2016-09-13] MEDS: CALCIUM CARBONATE 500 MG TAB.CHEW GT SCH ×3 (08:56→17:24)
[2016-09-13] MEDS: GABAPENTIN 600 MG TABLET GT SCH ×3 (08:56→17:24)
[2016-09-13] MEDS: MULTIVIT, IRON, MIN NO. 8, FA 1 TAB GT SCH (08:56)
[2016-09-13] MEDS: POLYETHYLENE GLYCOL 3350 17 GM POWD.PACK GT SCH (08:56)
[2016-09-13] MEDS: FAMOTIDINE (20 MG) 20 MG TABLET GT SCH ×2 (08:56→20:55)
[2016-09-13] MEDS: METOPROLOL TARTRATE 25 MG TABLET GT SCH ×2 (08:56→17:00)
[2016-09-13] MEDS: ASCORBIC ACID 500 MG TABLET GT SCH ×2 (08:56→17:24)
[2016-09-13] MEDS: CALCITRIOL 0.25 MCG CAPSULE PO SCH (08:56)
[2016-09-13] MEDS: MINERAL OIL/PETROL OINT 396 GM JAR TP SCH ×3 (13:00→17:24)
[2016-09-13] MEDS: HYDROCODONE/APAP 10/325MG 1 EA TABLET GT SCH ×2 (14:45→20:55)
[2016-09-13] MEDS: HYDROGEN PEROXIDE 480 ML BOTTLE TP SCH ×2 (15:30→20:56)
[2016-09-13] MEDS: HYDROGEL DRESSING 90 GM TUBE TP SCH ×4 (15:30→20:56)
[2016-09-13] MEDS: GENTAMICIN 0.1% OINT 15 GM TUBE TP SCH ×4 (15:30→20:56)
[2016-09-13] MEDS: Z GUARD REMEDY 2 OZ OINT TP SCH ×6 (15:30→20:56)
[2016-09-13 19:50] VITALS: BP 122/77
[2016-09-13] MEDS: ENOXAPARIN SODIUM 40 MG/0.4 ML DISP.SYRIN SQ SCH (20:56)
[2016-09-13] MEDS: ATORVASTATIN CALCIUM 20MG TABLET GT SCH (22:31)
[2016-09-14 07:47] VITALS: BP 138/80
[2016-09-14] MEDS: BACLOFEN (10 MG) 10 MG TABLET GT SCH ×4 (09:42→21:12)
[2016-09-14] MEDS: ESCITALOPRAM OXALATE (10 MG) 10 MG TABLET GT SCH (09:42)
[2016-09-14] MEDS: ACIDOPHILUS/BULGARICUS 1 EACH TAB.CHEW GT SCH ×3 (09:42→16:54)
[2016-09-14] MEDS: CRANBERRY GT SCH (09:42)
[2016-09-14] MEDS: POLYETHYLENE GLYCOL 3350 17 GM POWD.PACK GT SCH (09:43)
[2016-09-14] MEDS: METOPROLOL TARTRATE 25 MG TABLET GT SCH ×2 (09:43→16:54)
[2016-09-14] MEDS: HYDROCODONE/APAP 10/325MG 1 EA TABLET GT SCH ×2 (09:44→22:00)
[2016-09-14] MEDS: PROSOURCE / PROSTAT (PYXIS) 30 ML UDC GT SCH (09:44)
[2016-09-14] MEDS: ASCORBIC ACID 500 MG TABLET GT SCH ×2 (09:44→16:54)
[2016-09-14] MEDS: GABAPENTIN 600 MG TABLET GT SCH ×3 (09:44→16:54)
[2016-09-14] MEDS: CALCIUM CARBONATE 500 MG TAB.CHEW GT SCH ×3 (09:44→16:54)
[2016-09-14] MEDS: CLOPIDOGREL BISULFATE 75 MG TABLET PO SCH (09:44)
[2016-09-14] MEDS: MINERAL OIL/PETROL OINT 396 GM JAR TP SCH ×3 (09:44→16:54)
[2016-09-14] MEDS: MULTIVIT, IRON, MIN NO. 8, FA 1 TAB GT SCH (09:44)
[2016-09-14] MEDS: FAMOTIDINE (20 MG) 20 MG TABLET GT SCH ×2 (09:44→21:12)
[2016-09-14] MEDS: CALCITRIOL 0.25 MCG CAPSULE PO SCH (09:44)
[2016-09-14] MEDS: HYDROGEN PEROXIDE 480 ML BOTTLE TP SCH ×2 (09:45→22:30)
[2016-09-14] MEDS: HYDROGEL DRESSING 90 GM TUBE TP SCH ×4 (09:45→22:30)
[2016-09-14] MEDS: GENTAMICIN 0.1% OINT 15 GM TUBE TP SCH ×4 (09:45→22:30)
[2016-09-14] MEDS: Z GUARD REMEDY 2 OZ OINT TP SCH ×6 (09:45→22:30)
[2016-09-14] MEDS: HYDROCODONE/APAP 10/325MG 1 EA TABLET GT PRN (14:00)
[2016-09-14 19:35] VITALS: BP 107/56
[2016-09-14] MEDS: ENOXAPARIN SODIUM 40 MG/0.4 ML DISP.SYRIN SQ SCH (21:12)
[2016-09-14] MEDS: ATORVASTATIN CALCIUM 20MG TABLET GT SCH (21:12)
[2016-09-15 07:17] VITALS: BP 136/86
[2016-09-15] MEDS: ESCITALOPRAM OXALATE (10 MG) 10 MG TABLET GT SCH (08:50)
[2016-09-15] MEDS: BACLOFEN (10 MG) 10 MG TABLET GT SCH ×4 (08:50→20:54)
[2016-09-15] MEDS: GABAPENTIN 600 MG TABLET GT SCH ×3 (08:50→17:00)
[2016-09-15] MEDS: CRANBERRY GT SCH (08:50)
[2016-09-15] MEDS: METOPROLOL TARTRATE 25 MG TABLET GT SCH ×2 (08:50→17:00)
[2016-09-15] MEDS: POLYETHYLENE GLYCOL 3350 17 GM POWD.PACK GT SCH (08:50)
[2016-09-15] MEDS: ACIDOPHILUS/BULGARICUS 1 EACH TAB.CHEW GT SCH ×3 (08:50→17:00)
[2016-09-15] MEDS: ASCORBIC ACID 500 MG TABLET GT SCH ×2 (08:51→17:00)
[2016-09-15] MEDS: MULTIVIT, IRON, MIN NO. 8, FA 1 TAB GT SCH (08:51)
[2016-09-15] MEDS: HYDROCODONE/APAP 10/325MG 1 EA TABLET GT SCH (08:51)
[2016-09-15] MEDS: FAMOTIDINE (20 MG) 20 MG TABLET GT SCH ×2 (08:51→20:54)
[2016-09-15] MEDS: CALCIUM CARBONATE 500 MG TAB.CHEW GT SCH ×3 (08:51→17:00)
[2016-09-15] MEDS: CALCITRIOL 0.25 MCG CAPSULE PO SCH (08:51)
[2016-09-15] MEDS: PROSOURCE / PROSTAT (PYXIS) 30 ML UDC GT SCH (08:51)
[2016-09-15] MEDS: CLOPIDOGREL BISULFATE 75 MG TABLET PO SCH (08:51)
[2016-09-15] MEDS: HYDROGEL DRESSING 90 GM TUBE TP SCH ×4 (09:27→23:00)
[2016-09-15] MEDS: HYDROGEN PEROXIDE 480 ML BOTTLE TP SCH ×2 (09:27→23:00)
[2016-09-15] MEDS: GENTAMICIN 0.1% OINT 15 GM TUBE TP SCH ×4 (09:27→23:00)
[2016-09-15] MEDS: MINERAL OIL/PETROL OINT 396 GM JAR TP SCH ×3 (09:27→17:00)
[2016-09-15] MEDS: Z GUARD REMEDY 2 OZ OINT TP SCH ×6 (09:28→23:00)
--- NOTE | 2016-09-15 11:47 | NUR ---
RAVI spoke to the resident's ihfivh-uq-tjk Vilma who stated that she came to visit the resident yesterday. She noted that she helped him set up [employer] yesterday with her hotspot and will make a cheat sheet for him to use. She stated that she took her hotspot home but will try to bring it back the next time she visits. She stated that resident needs more practice and coaching as to how he can use the amaz[employer] echo properly but she wanted to inform the SW. She also stated that resident has trouble seeing and RAVI informed her that resident is due for an eye exam 09/2016 and SW will inform the center receptionist that he has trouble seeing. Febpwv-lu-oum Vilma also reported resident's tooth is black and that she would like to have the dentist take a look at it. She also raised the fact that she noticed the resident has a hard time hearing. SW to coordinate with the appropriate person and notified the charge nurse. RAVI called the office of Dr. Lopes/Dr Peter ([phone]) and spoke to Mystery. Informed him that Dr. Peter was coming Monday09/19/2016 for another resident. Asked Mystery if Dr. Peter can take a look at the resident's tooth and she stated that this would not be a problem. RAVI faxed face sheet to [phone]. Informed gfzanp-er-vpi and resident. RAVI will fax center receptionist referral for the resident as he is due for his exam. In terms of his hearing, charge nurse stated she will talk to the resident.
[2016-09-15] MEDS: HYDROCODONE/APAP 10/325MG 1 EA TABLET GT PRN (18:13)
[2016-09-15 20:00] VITALS: BP 106/59
[2016-09-15] MEDS: ENOXAPARIN SODIUM 40 MG/0.4 ML DISP.SYRIN SQ SCH (20:55)
[2016-09-15] MEDS: ATORVASTATIN CALCIUM 20MG TABLET GT SCH (21:28)
[2016-09-16 08:06] VITALS: BP 110/72
[2016-09-16 08:08] VITALS: BP 127/75
[2016-09-16] MEDS: POLYETHYLENE GLYCOL 3350 17 GM POWD.PACK GT SCH (09:01)
[2016-09-16] MEDS: ESCITALOPRAM OXALATE (10 MG) 10 MG TABLET GT SCH (09:01)
[2016-09-16] MEDS: CRANBERRY GT SCH (09:01)
[2016-09-16] MEDS: CALCITRIOL 0.25 MCG CAPSULE PO SCH (09:01)
[2016-09-16] MEDS: ASCORBIC ACID 500 MG TABLET GT SCH ×2 (09:01→17:00)
[2016-09-16] MEDS: ACIDOPHILUS/BULGARICUS 1 EACH TAB.CHEW GT SCH ×3 (09:01→17:00)
[2016-09-16] MEDS: GABAPENTIN 600 MG TABLET GT SCH ×3 (09:01→17:00)
[2016-09-16] MEDS: MULTIVIT, IRON, MIN NO. 8, FA 1 TAB GT SCH (09:01)
[2016-09-16] MEDS: BACLOFEN (10 MG) 10 MG TABLET GT SCH ×4 (09:01→21:24)
[2016-09-16] MEDS: CLOPIDOGREL BISULFATE 75 MG TABLET PO SCH (09:01)
[2016-09-16] MEDS: CALCIUM CARBONATE 500 MG TAB.CHEW GT SCH ×3 (09:01→17:00)
[2016-09-16] MEDS: HYDROCODONE/APAP 10/325MG 1 EA TABLET GT SCH ×2 (09:01→22:00)
[2016-09-16] MEDS: PROSOURCE / PROSTAT (PYXIS) 30 ML UDC GT SCH (09:01)
[2016-09-16] MEDS: FAMOTIDINE (20 MG) 20 MG TABLET GT SCH ×2 (09:01→21:24)
[2016-09-16] MEDS: METOPROLOL TARTRATE 25 MG TABLET GT SCH ×2 (09:01→17:00)
[2016-09-16] MEDS: MINERAL OIL/PETROL OINT 396 GM JAR TP SCH ×3 (09:30→17:00)
[2016-09-16] MEDS: HYDROGEN PEROXIDE 480 ML BOTTLE TP SCH ×2 (09:30→23:00)
[2016-09-16] MEDS: Z GUARD REMEDY 2 OZ OINT TP SCH ×6 (09:30→23:00)
[2016-09-16] MEDS: GENTAMICIN 0.1% OINT 15 GM TUBE TP SCH ×4 (09:30→23:00)
[2016-09-16] MEDS: HYDROGEL DRESSING 90 GM TUBE TP SCH ×4 (09:30→23:00)
--- NOTE | 2016-09-16 09:48 | NUR ---
INTERDISCIPLINARY PLAN OF CARE CONFERENCE was held today. Resident's sister in [facility] was unable to attend. New orders were reviewed. Dr. Ugarte and the interdisciplinary team reviewed the current plan of care in detail. Resident is stable and no new orders were given.
--- NOTE | 2016-09-16 11:51 | NUR ---
SW spoke to resident, as he was requesting to see the SW. Resident stated that he wanted to switch his RNA and stated "I need to move on." Resident stated that he wants a different experience and has had the same RNA for a long time. SW stated that she will ask the subacute bond manager to ask. RAVI informed subacute bond manager Naya who stated that she will talk to the charge nurse.
[2016-09-16] MEDS: HYDROCODONE/APAP 10/325MG 1 EA TABLET GT PRN (18:14)
[2016-09-16] MEDS: MAGNESIUM HYDROXIDE 30 ML UDC GT PRN (18:14)
[2016-09-16 19:30] VITALS: BP 106/65
[2016-09-16] MEDS: ATORVASTATIN CALCIUM 20MG TABLET GT SCH (21:24)
[2016-09-16] MEDS: ENOXAPARIN SODIUM 40 MG/0.4 ML DISP.SYRIN SQ SCH (21:24)
[2016-09-17 07:32] VITALS: BP 112/85
[2016-09-17] MEDS: ACIDOPHILUS/BULGARICUS 1 EACH TAB.CHEW GT SCH ×3 (08:37→17:12)
[2016-09-17] MEDS: ESCITALOPRAM OXALATE (10 MG) 10 MG TABLET GT SCH (08:37)
[2016-09-17] MEDS: BACLOFEN (10 MG) 10 MG TABLET GT SCH ×4 (08:37→21:47)
[2016-09-17] MEDS: CRANBERRY GT SCH (08:37)
[2016-09-17] MEDS: MULTIVIT, IRON, MIN NO. 8, FA 1 TAB GT SCH (08:38)
[2016-09-17] MEDS: ASCORBIC ACID 500 MG TABLET GT SCH ×2 (08:38→17:13)
[2016-09-17] MEDS: POLYETHYLENE GLYCOL 3350 17 GM POWD.PACK GT SCH (08:38)
[2016-09-17] MEDS: HYDROCODONE/APAP 10/325MG 1 EA TABLET GT SCH ×2 (08:38→21:48)
[2016-09-17] MEDS: CALCITRIOL 0.25 MCG CAPSULE PO SCH (08:38)
[2016-09-17] MEDS: CLOPIDOGREL BISULFATE 75 MG TABLET PO SCH (08:38)
[2016-09-17] MEDS: PROSOURCE / PROSTAT (PYXIS) 30 ML UDC GT SCH (08:38)
[2016-09-17] MEDS: CALCIUM CARBONATE 500 MG TAB.CHEW GT SCH ×3 (08:38→17:13)
[2016-09-17] MEDS: FAMOTIDINE (20 MG) 20 MG TABLET GT SCH ×2 (08:38→21:48)
[2016-09-17] MEDS: METOPROLOL TARTRATE 25 MG TABLET GT SCH ×2 (08:38→17:13)
[2016-09-17] MEDS: GABAPENTIN 600 MG TABLET GT SCH ×3 (08:38→17:13)
[2016-09-17] MEDS: HYDROGEN PEROXIDE 480 ML BOTTLE TP SCH ×2 (09:00→21:49)
[2016-09-17] MEDS: MINERAL OIL/PETROL OINT 396 GM JAR TP SCH ×3 (09:00→17:13)
[2016-09-17] MEDS: GENTAMICIN 0.1% OINT 15 GM TUBE TP SCH ×4 (09:00→21:49)
[2016-09-17] MEDS: Z GUARD REMEDY 2 OZ OINT TP SCH ×6 (09:00→21:49)
[2016-09-17] MEDS: NEOMY SULF/BACITRAC ZN/POLY 15 GM TUBE TP SCH ×2 (09:00→21:49)
[2016-09-17] MEDS: HYDROGEL DRESSING 90 GM TUBE TP SCH ×4 (09:00→21:48)
[2016-09-17 19:57] VITALS: BP 121/81
[2016-09-17] MEDS: ENOXAPARIN SODIUM 40 MG/0.4 ML DISP.SYRIN SQ SCH (21:48)
[2016-09-17] MEDS: ATORVASTATIN CALCIUM 20MG TABLET GT SCH (21:49)
[2016-09-18] MEDS: HYDROCODONE/APAP 10/325MG 1 EA TABLET GT PRN ×2 (03:44→13:49)
[2016-09-18 07:45] VITALS: BP 109/69
[2016-09-18] MEDS: ESCITALOPRAM OXALATE (10 MG) 10 MG TABLET GT SCH (09:20)
[2016-09-18] MEDS: BACLOFEN (10 MG) 10 MG TABLET GT SCH ×4 (09:20→20:47)
[2016-09-18] MEDS: CRANBERRY GT SCH (09:20)
[2016-09-18] MEDS: ACIDOPHILUS/BULGARICUS 1 EACH TAB.CHEW GT SCH ×3 (09:20→16:42)
[2016-09-18] MEDS: HYDROGEL DRESSING 90 GM TUBE TP SCH ×4 (09:21→20:49)
[2016-09-18] MEDS: MULTIVIT, IRON, MIN NO. 8, FA 1 TAB GT SCH (09:21)
[2016-09-18] MEDS: CALCITRIOL 0.25 MCG CAPSULE PO SCH (09:21)
[2016-09-18] MEDS: POLYETHYLENE GLYCOL 3350 17 GM POWD.PACK GT SCH (09:21)
[2016-09-18] MEDS: METOPROLOL TARTRATE 25 MG TABLET GT SCH ×2 (09:21→16:42)
[2016-09-18] MEDS: MINERAL OIL/PETROL OINT 396 GM JAR TP SCH ×3 (09:21→16:42)
[2016-09-18] MEDS: CLOPIDOGREL BISULFATE 75 MG TABLET PO SCH (09:21)
[2016-09-18] MEDS: CALCIUM CARBONATE 500 MG TAB.CHEW GT SCH ×3 (09:21→16:42)
[2016-09-18] MEDS: HYDROCODONE/APAP 10/325MG 1 EA TABLET GT SCH ×2 (09:21→21:00)
[2016-09-18] MEDS: PROSOURCE / PROSTAT (PYXIS) 30 ML UDC GT SCH (09:21)
[2016-09-18] MEDS: FAMOTIDINE (20 MG) 20 MG TABLET GT SCH ×2 (09:21→20:47)
[2016-09-18] MEDS: GABAPENTIN 600 MG TABLET GT SCH ×3 (09:21→16:42)
[2016-09-18] MEDS: ASCORBIC ACID 500 MG TABLET GT SCH ×2 (09:21→16:42)
[2016-09-18] MEDS: GENTAMICIN 0.1% OINT 15 GM TUBE TP SCH ×4 (09:22→20:49)
[2016-09-18] MEDS: HYDROGEN PEROXIDE 480 ML BOTTLE TP SCH ×2 (09:22→20:49)
[2016-09-18] MEDS: Z GUARD REMEDY 2 OZ OINT TP SCH ×6 (09:22→20:51)
[2016-09-18 19:52] VITALS: BP 103/69
[2016-09-18] MEDS: CLOTRIMAZOLE/BETAMETASONE DIPROPIONATE 15 GM TUBE TP SCH (20:49)
[2016-09-18] MEDS: ENOXAPARIN SODIUM 40 MG/0.4 ML DISP.SYRIN SQ SCH (20:49)
[2016-09-18] MEDS: BACI/NEOM/POLY B OINT PKT 1 UDPKT PACKET TP SCH (21:00)
[2016-09-18] MEDS: ATORVASTATIN CALCIUM 20MG TABLET GT SCH (22:33)
[2016-09-19] MEDS: HYDROCODONE/APAP 10/325MG 1 EA TABLET GT PRN (03:32)
[2016-09-19 07:36] VITALS: BP 110/68
[2016-09-19] MEDS: Z GUARD REMEDY 2 OZ OINT TP SCH ×6 (09:00→20:51)
[2016-09-19] MEDS: HYDROGEL DRESSING 90 GM TUBE TP SCH ×4 (09:00→20:50)
--- NOTE | 2016-09-19 09:06 | NUR ---
Resident was seen by Dr. Rome TERRAZAS, as sister in law had concern regarding resident's black tooth. Dr Peter stated it looks like a previous metal filling discolored and came off and that the resident would need to go to the dentists office to get it refilled. He stated that Mystery from the office will call the SW and SW to notify dcvfqk-vz-tbf Vilma when she hears back from the dentist's office.
[2016-09-19] MEDS: ESCITALOPRAM OXALATE (10 MG) 10 MG TABLET GT SCH (09:38)
[2016-09-19] MEDS: CRANBERRY GT SCH (09:38)
[2016-09-19] MEDS: ACIDOPHILUS/BULGARICUS 1 EACH TAB.CHEW GT SCH ×3 (09:38→17:00)
[2016-09-19] MEDS: BACLOFEN (10 MG) 10 MG TABLET GT SCH ×4 (09:38→20:44)
[2016-09-19] MEDS: METOPROLOL TARTRATE 25 MG TABLET GT SCH ×2 (09:39→17:00)
[2016-09-19] MEDS: MULTIVIT, IRON, MIN NO. 8, FA 1 TAB GT SCH (09:39)
[2016-09-19] MEDS: CALCIUM CARBONATE 500 MG TAB.CHEW GT SCH ×3 (09:39→17:00)
[2016-09-19] MEDS: POLYETHYLENE GLYCOL 3350 17 GM POWD.PACK GT SCH (09:39)
[2016-09-19] MEDS: GABAPENTIN 600 MG TABLET GT SCH ×3 (09:39→17:00)
[2016-09-19] MEDS: FAMOTIDINE (20 MG) 20 MG TABLET GT SCH ×2 (09:39→20:45)
[2016-09-19] MEDS: CALCITRIOL 0.25 MCG CAPSULE PO SCH (09:39)
[2016-09-19] MEDS: PROSOURCE / PROSTAT (PYXIS) 30 ML UDC GT SCH (09:39)
[2016-09-19] MEDS: CLOPIDOGREL BISULFATE 75 MG TABLET PO SCH (09:39)
[2016-09-19] MEDS: ASCORBIC ACID 500 MG TABLET GT SCH ×2 (09:39→17:00)
[2016-09-19] MEDS: MINERAL OIL/PETROL OINT 396 GM JAR TP SCH ×3 (13:00→17:00)
[2016-09-19] MEDS: HYDROCODONE/APAP 10/325MG 1 EA TABLET GT SCH ×2 (14:30→20:45)
[2016-09-19] MEDS: BACI/NEOM/POLY B OINT PKT 1 UDPKT PACKET TP SCH ×2 (15:00→20:50)
[2016-09-19] MEDS: HYDROGEN PEROXIDE 480 ML BOTTLE TP SCH ×2 (15:00→20:50)
[2016-09-19] MEDS: CLOTRIMAZOLE/BETAMETASONE DIPROPIONATE 15 GM TUBE TP SCH ×2 (15:00→20:50)
[2016-09-19] MEDS: GENTAMICIN 0.1% OINT 15 GM TUBE TP SCH ×4 (15:00→20:50)
[2016-09-19 19:56] VITALS: BP 106/61
[2016-09-19] MEDS: ENOXAPARIN SODIUM 40 MG/0.4 ML DISP.SYRIN SQ SCH (20:50)
[2016-09-19] MEDS: ATORVASTATIN CALCIUM 20MG TABLET GT SCH (22:19)
[2016-09-20 08:01] VITALS: BP 132/74
--- NOTE | 2016-09-20 08:45 | NUR ---
Spoke to Mystery at the office of Dr. Lopes/Dr Rome TERRAZAS ([phone]), She stated that resident will need to come in to the dentist's office to get his filling. She stated that he will also need an xray to make sure that the decay on the tooth if not next to a nerve. She said that the cost for both (xray and filling) will be $305.00. RAVI informed cwalov-su-lty Vilma who stated that this was okay and to please schedule appt for him. Appt was set for Wednesday September 28, 2016 at 11AM. resident will be wheeled to his appt via the [employer]. Addendum: 09/20/16 at 0858 by HECTOR RODRIGUES charge nurse was informed.
[2016-09-20] MEDS: CRANBERRY GT SCH (09:18)
[2016-09-20] MEDS: ACIDOPHILUS/BULGARICUS 1 EACH TAB.CHEW GT SCH ×3 (09:18→17:00)
[2016-09-20] MEDS: METOPROLOL TARTRATE 25 MG TABLET GT SCH ×2 (09:19→17:00)
[2016-09-20] MEDS: ASCORBIC ACID 500 MG TABLET GT SCH ×2 (09:19→17:00)
[2016-09-20] MEDS: CLOPIDOGREL BISULFATE 75 MG TABLET PO SCH (09:19)
[2016-09-20] MEDS: ESCITALOPRAM OXALATE (10 MG) 10 MG TABLET GT SCH (09:19)
[2016-09-20] MEDS: CALCIUM CARBONATE 500 MG TAB.CHEW GT SCH ×3 (09:19→17:00)
[2016-09-20] MEDS: POLYETHYLENE GLYCOL 3350 17 GM POWD.PACK GT SCH (09:19)
[2016-09-20] MEDS: BACLOFEN (10 MG) 10 MG TABLET GT SCH ×4 (09:19→20:47)
[2016-09-20] MEDS: PROSOURCE / PROSTAT (PYXIS) 30 ML UDC GT SCH (09:19)
[2016-09-20] MEDS: CALCITRIOL 0.25 MCG CAPSULE PO SCH (09:19)
[2016-09-20] MEDS: FAMOTIDINE (20 MG) 20 MG TABLET GT SCH ×2 (09:19→20:47)
[2016-09-20] MEDS: MULTIVIT, IRON, MIN NO. 8, FA 1 TAB GT SCH (09:19)
[2016-09-20] MEDS: GABAPENTIN 600 MG TABLET GT SCH ×3 (09:19→17:00)
--- NOTE | 2016-09-20 11:15 | NUR ---
spoke to resident as he was unsure if he wants to switch his RNA. He stated that he cannot make up his mind and sw helped resident explore changes. He expressed feeling that if he switches, the staff will be mad at him but Sw assured him that this was not the case and that he can choose who he wants to work with. he stated that he still needs to think about it and will talk to the other RNA.
[2016-09-20] MEDS: MINERAL OIL/PETROL OINT 396 GM JAR TP SCH ×3 (13:00→17:00)
[2016-09-20] MEDS: HYDROCODONE/APAP 10/325MG 1 EA TABLET GT SCH ×2 (14:20→20:47)
[2016-09-20] MEDS: HYDROGEL DRESSING 90 GM TUBE TP SCH ×4 (15:30→20:48)
[2016-09-20] MEDS: Z GUARD REMEDY 2 OZ OINT TP SCH ×6 (15:30→20:49)
[2016-09-20] MEDS: CLOTRIMAZOLE/BETAMETASONE DIPROPIONATE 15 GM TUBE TP SCH ×2 (15:30→20:49)
[2016-09-20] MEDS: BACI/NEOM/POLY B OINT PKT 1 UDPKT PACKET TP SCH ×2 (15:30→20:49)
[2016-09-20] MEDS: HYDROGEN PEROXIDE 480 ML BOTTLE TP SCH ×2 (15:30→20:48)
[2016-09-20] MEDS: GENTAMICIN 0.1% OINT 15 GM TUBE TP SCH ×4 (15:30→20:48)
[2016-09-20 19:52] VITALS: BP 126/75
[2016-09-20] MEDS: ENOXAPARIN SODIUM 40 MG/0.4 ML DISP.SYRIN SQ SCH (20:48)
[2016-09-20] MEDS: ATORVASTATIN CALCIUM 20MG TABLET GT SCH (22:08)
[2016-09-21] MEDS: CALCIUM CARBONATE 500 MG TAB.CHEW GT SCH ×3 (09:00→16:39)
[2016-09-21] MEDS: GENTAMICIN 0.1% OINT 15 GM TUBE TP SCH ×4 (09:00→21:53)
[2016-09-21] MEDS: GABAPENTIN 600 MG TABLET GT SCH ×3 (09:00→16:39)
[2016-09-21] MEDS: HYDROGEL DRESSING 90 GM TUBE TP SCH ×4 (09:00→21:52)
[2016-09-21] MEDS: ACIDOPHILUS/BULGARICUS 1 EACH TAB.CHEW GT SCH ×3 (09:00→16:39)
[2016-09-21] MEDS: BACLOFEN (10 MG) 10 MG TABLET GT SCH ×4 (09:00→21:51)
[2016-09-21] MEDS: ASCORBIC ACID 500 MG TABLET GT SCH ×2 (09:00→16:39)
[2016-09-21] MEDS: MULTIVIT, IRON, MIN NO. 8, FA 1 TAB GT SCH (09:00)
[2016-09-21] MEDS: Z GUARD REMEDY 2 OZ OINT TP SCH ×6 (09:00→21:53)
[2016-09-21] MEDS: HYDROCODONE/APAP 10/325MG 1 EA TABLET GT SCH ×2 (09:00→21:52)
[2016-09-21] MEDS: HYDROGEN PEROXIDE 480 ML BOTTLE TP SCH ×2 (09:00→21:53)
[2016-09-21] MEDS: MINERAL OIL/PETROL OINT 396 GM JAR TP SCH ×3 (09:00→16:39)
[2016-09-21] MEDS: CALCITRIOL 0.25 MCG CAPSULE PO SCH (09:00)
[2016-09-21] MEDS: CLOTRIMAZOLE/BETAMETASONE DIPROPIONATE 15 GM TUBE TP SCH ×2 (09:00→21:53)
[2016-09-21] MEDS: CLOPIDOGREL BISULFATE 75 MG TABLET PO SCH (09:00)
[2016-09-21] MEDS: ESCITALOPRAM OXALATE (10 MG) 10 MG TABLET GT SCH (09:00)
[2016-09-21] MEDS: PROSOURCE / PROSTAT (PYXIS) 30 ML UDC GT SCH (09:00)
[2016-09-21] MEDS: CRANBERRY GT SCH (09:00)
[2016-09-21] MEDS: BACI/NEOM/POLY B OINT PKT 1 UDPKT PACKET TP SCH ×2 (09:00→21:53)
[2016-09-21] MEDS: POLYETHYLENE GLYCOL 3350 17 GM POWD.PACK GT SCH (09:00)
[2016-09-21] MEDS: METOPROLOL TARTRATE 25 MG TABLET GT SCH ×2 (09:00→16:39)
[2016-09-21] MEDS: FAMOTIDINE (20 MG) 20 MG TABLET GT SCH ×2 (09:00→21:52)
[2016-09-21 12:38] VITALS: BP 140/86
[2016-09-21] MEDS: HYDROCODONE/APAP 10/325MG 1 EA TABLET GT PRN (14:00)
--- NOTE | 2016-09-21 15:00 | NUR ---
ELECTRICAL LINEMAN PT REQUESTING DENTIST CONSULT, CALLED MD OFFICE LEFT MESSAGE WILL ENDORSE TO PM NURSE IF NOT UNABLE TO HEAR BACK FROM OFFICE.
--- NOTE | 2016-09-21 18:48 | NUR ---
pt refused dinner.offered x3.pt said "later".food still at bedside.endorsed to incoming nurse.
[2016-09-21 20:35] VITALS: BP 124/83
[2016-09-21] MEDS: ENOXAPARIN SODIUM 40 MG/0.4 ML DISP.SYRIN SQ SCH (21:52)
[2016-09-21] MEDS: ATORVASTATIN CALCIUM 20MG TABLET GT SCH (21:53)
--- NOTE | 2016-09-22 01:30 | NUR ---
Pt complaining severe head ache,[place] given via GT for pain as ordered.Pt stated that he want to join GOD and rest.Tried to distract patient by massaging his head and talking to him.Vital signs stable BP 140/81 HR 81,O2 sats 96%.Kept him comfortable with quiet environment.Will continue to monitor.
--- NOTE | 2016-09-22 02:40 | NUR ---
Pt sleeping around this time,no distress noted.
[2016-09-22] MEDS: METHOCARBAMOL (750MG) 750 MG TABLET GT PRN (02:42)
[2016-09-22] MEDS: HYDROCODONE/APAP 10/325MG 1 EA TABLET GT PRN ×2 (06:21→16:04)
[2016-09-22 07:43] VITALS: BP 106/67
[2016-09-22] MEDS: METOPROLOL TARTRATE 25 MG TABLET GT SCH ×2 (08:55→16:10)
[2016-09-22] MEDS: CALCITRIOL 0.25 MCG CAPSULE PO SCH (08:55)
[2016-09-22] MEDS: CLOPIDOGREL BISULFATE 75 MG TABLET PO SCH (08:55)
[2016-09-22] MEDS: FAMOTIDINE (20 MG) 20 MG TABLET GT SCH ×2 (08:55→21:30)
[2016-09-22] MEDS: GABAPENTIN 600 MG TABLET GT SCH ×3 (08:56→16:07)
[2016-09-22] MEDS: BACLOFEN (10 MG) 10 MG TABLET GT SCH ×4 (08:56→21:29)
[2016-09-22] MEDS: ACIDOPHILUS/BULGARICUS 1 EACH TAB.CHEW GT SCH ×3 (08:57→16:05)
[2016-09-22] MEDS: ESCITALOPRAM OXALATE (10 MG) 10 MG TABLET GT SCH (08:57)
[2016-09-22] MEDS: ASCORBIC ACID 500 MG TABLET GT SCH ×2 (08:58→16:08)
[2016-09-22] MEDS: PROSOURCE / PROSTAT (PYXIS) 30 ML UDC GT SCH (08:58)
[2016-09-22] MEDS: CRANBERRY GT SCH (08:58)
[2016-09-22] MEDS: CALCIUM CARBONATE 500 MG TAB.CHEW GT SCH ×3 (08:58→16:08)
[2016-09-22] MEDS: GENTAMICIN 0.1% OINT 15 GM TUBE TP SCH ×4 (08:59→21:30)
[2016-09-22] MEDS: MINERAL OIL/PETROL OINT 396 GM JAR TP SCH ×3 (08:59→16:08)
[2016-09-22] MEDS: HYDROGEL DRESSING 90 GM TUBE TP SCH ×4 (08:59→21:30)
[2016-09-22] MEDS: BACI/NEOM/POLY B OINT PKT 1 UDPKT PACKET TP SCH ×2 (09:00→21:30)
[2016-09-22] MEDS: CLOTRIMAZOLE/BETAMETASONE DIPROPIONATE 15 GM TUBE TP SCH ×2 (09:00→21:30)
[2016-09-22] MEDS: HYDROGEN PEROXIDE 480 ML BOTTLE TP SCH ×2 (09:00→21:30)
[2016-09-22] MEDS: MULTIVIT, IRON, MIN NO. 8, FA 1 TAB GT SCH (09:01)
[2016-09-22] MEDS: POLYETHYLENE GLYCOL 3350 17 GM POWD.PACK GT SCH (09:01)
[2016-09-22] MEDS: Z GUARD REMEDY 2 OZ OINT TP SCH ×6 (09:01→21:30)
[2016-09-22] MEDS: HYDROCODONE/APAP 10/325MG 1 EA TABLET GT SCH ×2 (09:06→21:30)
[2016-09-22] MEDS: ACETAMINOPHEN 650 MG/20 ML UDC- FOR SA PATIENTS ONLY GT PRN (09:12)
--- NOTE | 2016-09-22 15:52 | NUR ---
Faxed referral to Dr. Hercules men's locker room attendant ( ) for regular eye check up appt, as the resident is due for his yearly checkup.
[2016-09-22 20:02] VITALS: BP 104/64
[2016-09-22] MEDS: ENOXAPARIN SODIUM 40 MG/0.4 ML DISP.SYRIN SQ SCH (21:30)
[2016-09-22] MEDS: ATORVASTATIN CALCIUM 20MG TABLET GT SCH (21:30)
[2016-09-23] MEDS: HYDROCODONE/APAP 10/325MG 1 EA TABLET GT PRN ×2 (00:55→08:11)
[2016-09-23] MEDS: METHOCARBAMOL (750MG) 750 MG TABLET GT PRN (04:20)
[2016-09-23] MEDS: ACETAMINOPHEN 650 MG/20 ML UDC- FOR SA PATIENTS ONLY GT PRN (04:20)
[2016-09-23] MEDS: MAGNESIUM HYDROXIDE 30 ML UDC GT PRN (04:20)
[2016-09-23 07:34] VITALS: BP 120/78
[2016-09-23] MEDS: CRANBERRY GT SCH (08:08)
[2016-09-23] MEDS: BACLOFEN (10 MG) 10 MG TABLET GT SCH ×4 (08:09→20:46)
[2016-09-23] MEDS: ACIDOPHILUS/BULGARICUS 1 EACH TAB.CHEW GT SCH ×3 (08:09→17:13)
[2016-09-23] MEDS: ESCITALOPRAM OXALATE (10 MG) 10 MG TABLET GT SCH (08:09)
[2016-09-23] MEDS: POLYETHYLENE GLYCOL 3350 17 GM POWD.PACK GT SCH (08:10)
[2016-09-23] MEDS: CALCITRIOL 0.25 MCG CAPSULE PO SCH (08:10)
[2016-09-23] MEDS: CALCIUM CARBONATE 500 MG TAB.CHEW GT SCH ×3 (08:10→17:13)
[2016-09-23] MEDS: PROSOURCE / PROSTAT (PYXIS) 30 ML UDC GT SCH (08:10)
[2016-09-23] MEDS: MINERAL OIL/PETROL OINT 396 GM JAR TP SCH ×3 (08:10→17:13)
[2016-09-23] MEDS: CLOPIDOGREL BISULFATE 75 MG TABLET PO SCH (08:10)
[2016-09-23] MEDS: ASCORBIC ACID 500 MG TABLET GT SCH ×2 (08:10→17:13)
[2016-09-23] MEDS: MULTIVIT, IRON, MIN NO. 8, FA 1 TAB GT SCH (08:10)
[2016-09-23] MEDS: FAMOTIDINE (20 MG) 20 MG TABLET GT SCH ×2 (08:10→20:47)
[2016-09-23] MEDS: METOPROLOL TARTRATE 25 MG TABLET GT SCH ×2 (08:10→17:13)
[2016-09-23] MEDS: GABAPENTIN 600 MG TABLET GT SCH ×3 (08:10→17:13)
[2016-09-23] MEDS: HYDROCODONE/APAP 10/325MG 1 EA TABLET GT SCH ×2 (12:08→22:01)
[2016-09-23] MEDS: HYDROGEN PEROXIDE 480 ML BOTTLE TP SCH ×2 (13:10→22:34)
[2016-09-23] MEDS: GENTAMICIN 0.1% OINT 15 GM TUBE TP SCH ×5 (13:10→22:34)
[2016-09-23] MEDS: CLOTRIMAZOLE/BETAMETASONE DIPROPIONATE 15 GM TUBE TP SCH ×2 (13:10→22:34)
[2016-09-23] MEDS: HYDROGEL DRESSING 90 GM TUBE TP SCH ×4 (13:10→22:33)
[2016-09-23] MEDS: BACI/NEOM/POLY B OINT PKT 1 UDPKT PACKET TP SCH ×2 (13:10→22:35)
[2016-09-23] MEDS: Z GUARD REMEDY 2 OZ OINT TP SCH ×6 (13:10→22:35)
[2016-09-23 20:20] VITALS: BP 100/55
[2016-09-23] MEDS: ENOXAPARIN SODIUM 40 MG/0.4 ML DISP.SYRIN SQ SCH (20:59)
[2016-09-23 21:00] VITALS: BP 100/55
[2016-09-23] MEDS: ATORVASTATIN CALCIUM 20MG TABLET GT SCH (21:02)
[2016-09-24] MEDS: HYDROCODONE/APAP 10/325MG 1 EA TABLET GT PRN ×2 (02:36→08:45)
[2016-09-24 08:10] VITALS: BP 120/68
[2016-09-24] MEDS: FAMOTIDINE (20 MG) 20 MG TABLET GT SCH ×2 (08:43→20:14)
[2016-09-24] MEDS: POLYETHYLENE GLYCOL 3350 17 GM POWD.PACK GT SCH (08:43)
[2016-09-24] MEDS: ESCITALOPRAM OXALATE (10 MG) 10 MG TABLET GT SCH (08:43)
[2016-09-24] MEDS: GABAPENTIN 600 MG TABLET GT SCH ×3 (08:43→17:22)
[2016-09-24] MEDS: BACLOFEN (10 MG) 10 MG TABLET GT SCH ×4 (08:43→20:13)
[2016-09-24] MEDS: METOPROLOL TARTRATE 25 MG TABLET GT SCH ×2 (08:43→17:22)
[2016-09-24] MEDS: CRANBERRY GT SCH (08:43)
[2016-09-24] MEDS: ACIDOPHILUS/BULGARICUS 1 EACH TAB.CHEW GT SCH ×3 (08:43→17:22)
[2016-09-24] MEDS: CALCITRIOL 0.25 MCG CAPSULE PO SCH (08:44)
[2016-09-24] MEDS: CLOPIDOGREL BISULFATE 75 MG TABLET PO SCH (08:44)
[2016-09-24] MEDS: CALCIUM CARBONATE 500 MG TAB.CHEW GT SCH ×3 (08:44→17:22)
[2016-09-24] MEDS: PROSOURCE / PROSTAT (PYXIS) 30 ML UDC GT SCH (08:44)
[2016-09-24] MEDS: MINERAL OIL/PETROL OINT 396 GM JAR TP SCH ×3 (08:44→17:22)
[2016-09-24] MEDS: ASCORBIC ACID 500 MG TABLET GT SCH ×2 (08:44→17:22)
[2016-09-24] MEDS: MULTIVIT, IRON, MIN NO. 8, FA 1 TAB GT SCH (08:44)
[2016-09-24] MEDS: HYDROCODONE/APAP 10/325MG 1 EA TABLET GT SCH ×2 (12:15→20:13)
[2016-09-24] MEDS: HYDROGEL DRESSING 90 GM TUBE TP SCH ×4 (13:15→20:18)
[2016-09-24] MEDS: HYDROGEN PEROXIDE 480 ML BOTTLE TP SCH ×2 (13:15→20:18)
[2016-09-24] MEDS: GENTAMICIN 0.1% OINT 15 GM TUBE TP SCH ×6 (13:15→20:18)
[2016-09-24] MEDS: BACI/NEOM/POLY B OINT PKT 1 UDPKT PACKET TP SCH ×2 (13:15→20:18)
[2016-09-24] MEDS: CLOTRIMAZOLE/BETAMETASONE DIPROPIONATE 15 GM TUBE TP SCH ×2 (13:15→20:18)
[2016-09-24] MEDS: Z GUARD REMEDY 2 OZ OINT TP SCH ×6 (13:15→20:18)
--- NOTE | 2016-09-24 17:11 | NUR ---
RIGHT 3RD TOE AND LEFT FIRST TOE EDGES BLACK, NO OPEN SKIN, NO DISCHARGE. NOTIFIED DR. RENÉ PATEL, ORDERED PODIATRY CONSULT.
[2016-09-24 20:07] VITALS: BP 122/75
[2016-09-24] MEDS: METHOCARBAMOL (750MG) 750 MG TABLET GT PRN (20:18)
[2016-09-24] MEDS: MAGNESIUM HYDROXIDE 30 ML UDC GT PRN (20:18)
[2016-09-24] MEDS: ENOXAPARIN SODIUM 40 MG/0.4 ML DISP.SYRIN SQ SCH (20:18)
[2016-09-24] MEDS: ATORVASTATIN CALCIUM 20MG TABLET GT SCH (21:01)
[2016-09-25] MEDS: ACETAMINOPHEN 650 MG/20 ML UDC- FOR SA PATIENTS ONLY GT PRN (01:00)
[2016-09-25 07:42] VITALS: BP 116/69
[2016-09-25] MEDS: BACLOFEN (10 MG) 10 MG TABLET GT SCH ×4 (08:58→21:00)
[2016-09-25] MEDS: ESCITALOPRAM OXALATE (10 MG) 10 MG TABLET GT SCH (08:58)
[2016-09-25] MEDS: ACIDOPHILUS/BULGARICUS 1 EACH TAB.CHEW GT SCH ×3 (08:58→17:00)
[2016-09-25] MEDS: CRANBERRY GT SCH (08:58)
[2016-09-25] MEDS: CALCIUM CARBONATE 500 MG TAB.CHEW GT SCH ×3 (08:59→17:00)
[2016-09-25] MEDS: METOPROLOL TARTRATE 25 MG TABLET GT SCH ×2 (08:59→17:00)
[2016-09-25] MEDS: PROSOURCE / PROSTAT (PYXIS) 30 ML UDC GT SCH (08:59)
[2016-09-25] MEDS: CALCITRIOL 0.25 MCG CAPSULE PO SCH (08:59)
[2016-09-25] MEDS: CLOPIDOGREL BISULFATE 75 MG TABLET PO SCH (08:59)
[2016-09-25] MEDS: GABAPENTIN 600 MG TABLET GT SCH ×3 (08:59→17:00)
[2016-09-25] MEDS: MULTIVIT, IRON, MIN NO. 8, FA 1 TAB GT SCH (08:59)
[2016-09-25] MEDS: POLYETHYLENE GLYCOL 3350 17 GM POWD.PACK GT SCH (08:59)
[2016-09-25] MEDS: FAMOTIDINE (20 MG) 20 MG TABLET GT SCH ×2 (08:59→21:00)
[2016-09-25] MEDS: ASCORBIC ACID 500 MG TABLET GT SCH ×2 (08:59→17:00)
[2016-09-25] MEDS: Z GUARD REMEDY 2 OZ OINT TP SCH ×6 (09:00→21:00)
[2016-09-25] MEDS: BACI/NEOM/POLY B OINT PKT 1 UDPKT PACKET TP SCH ×2 (09:00→21:00)
[2016-09-25] MEDS: HYDROCODONE/APAP 10/325MG 1 EA TABLET GT PRN (09:00)
[2016-09-25] MEDS: MINERAL OIL/PETROL OINT 396 GM JAR TP SCH ×3 (13:00→17:00)
[2016-09-25] MEDS: HYDROCODONE/APAP 10/325MG 1 EA TABLET GT SCH ×2 (14:00→21:00)
[2016-09-25] MEDS: HYDROGEN PEROXIDE 480 ML BOTTLE TP SCH ×2 (15:00→21:00)
[2016-09-25] MEDS: CLOTRIMAZOLE/BETAMETASONE DIPROPIONATE 15 GM TUBE TP SCH ×2 (15:00→21:00)
[2016-09-25] MEDS: GENTAMICIN 0.1% OINT 15 GM TUBE TP SCH ×6 (15:00→21:00)
[2016-09-25] MEDS: HYDROGEL DRESSING 90 GM TUBE TP SCH ×4 (15:00→21:00)
[2016-09-25 20:14] VITALS: BP 113/68
[2016-09-25] MEDS: ENOXAPARIN SODIUM 40 MG/0.4 ML DISP.SYRIN SQ SCH (21:00)
[2016-09-25] MEDS: ATORVASTATIN CALCIUM 20MG TABLET GT SCH (22:00)
[2016-09-26] MEDS: HYDROCODONE/APAP 10/325MG 1 EA TABLET GT PRN (04:37)
[2016-09-26 07:42] VITALS: BP 109/82
--- NOTE | 2016-09-26 08:05 | NUR ---
Sent referral to Matheus from the wound center for break up worker consult (tel: [phone], fax: [phone]). RAVI will follow up.
[2016-09-26] MEDS: BACLOFEN (10 MG) 10 MG TABLET GT SCH ×4 (08:48→20:23)
[2016-09-26] MEDS: CRANBERRY GT SCH (08:48)
[2016-09-26] MEDS: ESCITALOPRAM OXALATE (10 MG) 10 MG TABLET GT SCH (08:48)
[2016-09-26] MEDS: ACIDOPHILUS/BULGARICUS 1 EACH TAB.CHEW GT SCH ×3 (08:48→17:00)
[2016-09-26] MEDS: FAMOTIDINE (20 MG) 20 MG TABLET GT SCH ×2 (08:49→20:23)
[2016-09-26] MEDS: GABAPENTIN 600 MG TABLET GT SCH (08:49)
[2016-09-26] MEDS: CLOPIDOGREL BISULFATE 75 MG TABLET PO SCH (08:49)
[2016-09-26] MEDS: PROSOURCE / PROSTAT (PYXIS) 30 ML UDC GT SCH (08:49)
[2016-09-26] MEDS: POLYETHYLENE GLYCOL 3350 17 GM POWD.PACK GT SCH (08:49)
[2016-09-26] MEDS: CALCIUM CARBONATE 500 MG TAB.CHEW GT SCH ×3 (08:49→17:00)
[2016-09-26] MEDS: ASCORBIC ACID 500 MG TABLET GT SCH ×2 (08:49→17:00)
[2016-09-26] MEDS: METOPROLOL TARTRATE 25 MG TABLET GT SCH ×2 (08:49→17:00)
[2016-09-26] MEDS: CALCITRIOL 0.25 MCG CAPSULE PO SCH (08:49)
[2016-09-26] MEDS: MULTIVIT, IRON, MIN NO. 8, FA 1 TAB GT SCH (08:49)
[2016-09-26] MEDS: MINERAL OIL/PETROL OINT 396 GM JAR TP SCH ×3 (09:00→17:00)
[2016-09-26] MEDS: GABAPENTIN 300 MG CAPSULE GT SCH ×2 (13:00→17:00)
[2016-09-26] MEDS: HYDROCODONE/APAP 10/325MG 1 EA TABLET GT SCH ×2 (14:00→20:23)
[2016-09-26] MEDS: BACI/NEOM/POLY B OINT PKT 1 UDPKT PACKET TP SCH ×2 (15:00→21:02)
[2016-09-26] MEDS: GENTAMICIN 0.1% OINT 15 GM TUBE TP SCH ×6 (15:00→21:02)
[2016-09-26] MEDS: HYDROGEL DRESSING 90 GM TUBE TP SCH ×4 (15:00→21:01)
[2016-09-26] MEDS: CLOTRIMAZOLE/BETAMETASONE DIPROPIONATE 15 GM TUBE TP SCH ×2 (15:00→21:02)
[2016-09-26] MEDS: HYDROGEN PEROXIDE 480 ML BOTTLE TP SCH ×2 (15:00→21:02)
[2016-09-26] MEDS: Z GUARD REMEDY 2 OZ OINT TP SCH ×6 (15:00→21:02)
[2016-09-26 19:59] VITALS: BP 106/71
[2016-09-26] MEDS: ENOXAPARIN SODIUM 40 MG/0.4 ML DISP.SYRIN SQ SCH (20:24)
[2016-09-26] MEDS: ATORVASTATIN CALCIUM 20MG TABLET GT SCH (21:02)
[2016-09-27 08:05] VITALS: BP 133/80
[2016-09-27] MEDS: CRANBERRY GT SCH (09:56)
[2016-09-27] MEDS: BACLOFEN (10 MG) 10 MG TABLET GT SCH ×4 (09:56→20:33)
[2016-09-27] MEDS: POLYETHYLENE GLYCOL 3350 17 GM POWD.PACK GT SCH (09:56)
[2016-09-27] MEDS: ACIDOPHILUS/BULGARICUS 1 EACH TAB.CHEW GT SCH ×3 (09:56→17:00)
[2016-09-27] MEDS: GABAPENTIN 300 MG CAPSULE GT SCH ×3 (09:56→17:00)
[2016-09-27] MEDS: METOPROLOL TARTRATE 25 MG TABLET GT SCH ×2 (09:56→17:00)
[2016-09-27] MEDS: ESCITALOPRAM OXALATE (10 MG) 10 MG TABLET GT SCH (09:56)
[2016-09-27] MEDS: PROSOURCE / PROSTAT (PYXIS) 30 ML UDC GT SCH (09:57)
[2016-09-27] MEDS: CLOPIDOGREL BISULFATE 75 MG TABLET PO SCH (09:57)
[2016-09-27] MEDS: ASCORBIC ACID 500 MG TABLET GT SCH ×2 (09:57→17:00)
[2016-09-27] MEDS: CALCITRIOL 0.25 MCG CAPSULE PO SCH (09:57)
[2016-09-27] MEDS: FAMOTIDINE (20 MG) 20 MG TABLET GT SCH ×2 (09:57→20:34)
[2016-09-27] MEDS: MULTIVIT, IRON, MIN NO. 8, FA 1 TAB GT SCH (09:57)
[2016-09-27] MEDS: CALCIUM CARBONATE 500 MG TAB.CHEW GT SCH ×3 (09:57→17:00)
--- NOTE | 2016-09-27 10:58 | NUR ---
RAVI confirmed resident's dental appt with Dr. Lopes for 11AM location: [address] [place] [address]. [address] [place] [address] . Reminded resident's vukspl-le-cpd and provided notice to the charge nurse. Resident's nurse will accompany him.
[2016-09-27] MEDS: MINERAL OIL/PETROL OINT 396 GM JAR TP SCH ×3 (13:00→17:00)
[2016-09-27] MEDS: HYDROCODONE/APAP 10/325MG 1 EA TABLET GT SCH ×2 (14:00→20:34)
[2016-09-27] MEDS: HYDROGEL DRESSING 90 GM TUBE TP SCH ×4 (15:00→21:14)
[2016-09-27] MEDS: BACI/NEOM/POLY B OINT PKT 1 UDPKT PACKET TP SCH ×2 (15:00→21:14)
[2016-09-27] MEDS: GENTAMICIN 0.1% OINT 15 GM TUBE TP SCH ×6 (15:00→21:14)
[2016-09-27] MEDS: CLOTRIMAZOLE/BETAMETASONE DIPROPIONATE 15 GM TUBE TP SCH ×2 (15:00→21:14)
[2016-09-27] MEDS: Z GUARD REMEDY 2 OZ OINT TP SCH ×6 (15:00→21:14)
[2016-09-27] MEDS: HYDROGEN PEROXIDE 480 ML BOTTLE TP SCH ×2 (15:00→21:14)
[2016-09-27] MEDS: NEOMY SULF/BACITRAC ZN/POLY 15 GM TUBE TP SCH ×2 (15:00)
--- NOTE | 2016-09-27 19:12 | NUR ---
Late entry 09/26/[address] De La Vega. He trimmed pt's toenails, no more black edges on the right 3rd toe and left 1st toe. Received treatment orders.
[2016-09-27] MEDS: ENOXAPARIN SODIUM 40 MG/0.4 ML DISP.SYRIN SQ SCH (20:35)
[2016-09-27] MEDS: ATORVASTATIN CALCIUM 20MG TABLET GT SCH (21:15)
[2016-09-27 21:21] VITALS: BP 101/57
[2016-09-28 07:59] VITALS: BP 114/78
[2016-09-28] MEDS: FAMOTIDINE (20 MG) 20 MG TABLET GT SCH ×2 (09:00→20:43)
[2016-09-28] MEDS: ASCORBIC ACID 500 MG TABLET GT SCH ×2 (09:00→17:52)
[2016-09-28] MEDS: MINERAL OIL/PETROL OINT 396 GM JAR TP SCH ×3 (09:00→17:52)
[2016-09-28] MEDS: HYDROCODONE/APAP 10/325MG 1 EA TABLET GT SCH ×2 (09:00→20:43)
[2016-09-28] MEDS: BACLOFEN (10 MG) 10 MG TABLET GT SCH ×4 (09:00→20:42)
[2016-09-28] MEDS: CALCIUM CARBONATE 500 MG TAB.CHEW GT SCH ×3 (09:00→17:52)
[2016-09-28] MEDS: CALCITRIOL 0.25 MCG CAPSULE PO SCH (09:00)
[2016-09-28] MEDS: NEOMY SULF/BACITRAC ZN/POLY 15 GM TUBE TP SCH ×2 (09:00)
[2016-09-28] MEDS: MULTIVIT, IRON, MIN NO. 8, FA 1 TAB GT SCH (09:00)
[2016-09-28] MEDS: PROSOURCE / PROSTAT (PYXIS) 30 ML UDC GT SCH (09:00)
[2016-09-28] MEDS: Z GUARD REMEDY 2 OZ OINT TP SCH ×6 (09:00→21:30)
[2016-09-28] MEDS: POLYETHYLENE GLYCOL 3350 17 GM POWD.PACK GT SCH (09:00)
[2016-09-28] MEDS: GENTAMICIN 0.1% OINT 15 GM TUBE TP SCH ×6 (09:00→21:30)
[2016-09-28] MEDS: HYDROGEL DRESSING 90 GM TUBE TP SCH ×4 (09:00→21:30)
[2016-09-28] MEDS: BACI/NEOM/POLY B OINT PKT 1 UDPKT PACKET TP SCH ×2 (09:00→21:30)
[2016-09-28] MEDS: ACIDOPHILUS/BULGARICUS 1 EACH TAB.CHEW GT SCH ×3 (09:00→17:48)
[2016-09-28] MEDS: METOPROLOL TARTRATE 25 MG TABLET GT SCH ×2 (09:00→17:52)
[2016-09-28] MEDS: ESCITALOPRAM OXALATE (10 MG) 10 MG TABLET GT SCH (09:00)
[2016-09-28] MEDS: CRANBERRY GT SCH (09:00)
[2016-09-28] MEDS: CLOTRIMAZOLE/BETAMETASONE DIPROPIONATE 15 GM TUBE TP SCH ×2 (09:00→21:30)
[2016-09-28] MEDS: HYDROGEN PEROXIDE 480 ML BOTTLE TP SCH ×2 (09:00→21:30)
[2016-09-28] MEDS: CLOPIDOGREL BISULFATE 75 MG TABLET PO SCH (09:00)
[2016-09-28] MEDS: GABAPENTIN 300 MG CAPSULE GT SCH ×3 (09:00→17:52)
--- NOTE | 2016-09-28 11:00 | NUR ---
Patient went to dentist today, accompanied to dental clinic, Dentist put filling, tolerated well. Per dentist okay to have meal, no orders given. Patient came back at 1215 to subacute.
--- NOTE | 2016-09-28 12:30 | NUR ---
Resident returned from his dentist appt with Dr. Peter/Dr. Lopes. He had a filling done. Iouurp-yj-hal Vilma was informed that he was back from his appointment and appreciated the information.
[2016-09-28] MEDS: HYDROCODONE/APAP 10/325MG 1 EA TABLET GT PRN (15:00)
[2016-09-28 19:56] VITALS: BP 109/73
[2016-09-28] MEDS: ENOXAPARIN SODIUM 40 MG/0.4 ML DISP.SYRIN SQ SCH (20:43)
[2016-09-28] MEDS: ATORVASTATIN CALCIUM 20MG TABLET GT SCH (21:31)
--- NOTE | 2016-09-28 23:30 | NUR ---
Pt yarbrough catheter out.Re inserted yarbrough catheter sterile technique,slight bleeding noted on the tip of penis.Urine output noted with tinged of blood,will continue to monitor.Pt denies any pain.
[2016-09-29 07:58] VITALS: BP 133/66
[2016-09-29] MEDS: BACI/NEOM/POLY B OINT PKT 1 UDPKT PACKET TP SCH ×2 (09:00→20:29)
[2016-09-29] MEDS: NEOMY SULF/BACITRAC ZN/POLY 15 GM TUBE TP SCH ×4 (09:00→20:29)
[2016-09-29] MEDS: GENTAMICIN 0.1% OINT 15 GM TUBE TP SCH ×6 (09:00→20:29)
[2016-09-29] MEDS: Z GUARD REMEDY 2 OZ OINT TP SCH ×6 (09:00→20:29)
[2016-09-29] MEDS: POLYETHYLENE GLYCOL 3350 17 GM POWD.PACK GT SCH (09:31)
[2016-09-29] MEDS: ACIDOPHILUS/BULGARICUS 1 EACH TAB.CHEW GT SCH ×3 (09:31→16:20)
[2016-09-29] MEDS: BACLOFEN (10 MG) 10 MG TABLET GT SCH ×4 (09:31→20:28)
[2016-09-29] MEDS: GABAPENTIN 300 MG CAPSULE GT SCH ×3 (09:31→16:21)
[2016-09-29] MEDS: CRANBERRY GT SCH (09:31)
[2016-09-29] MEDS: HYDROCODONE/APAP 10/325MG 1 EA TABLET GT SCH ×2 (09:31→20:28)
[2016-09-29] MEDS: ESCITALOPRAM OXALATE (10 MG) 10 MG TABLET GT SCH (09:31)
[2016-09-29] MEDS: METOPROLOL TARTRATE 25 MG TABLET GT SCH ×2 (09:31→16:21)
[2016-09-29] MEDS: MINERAL OIL/PETROL OINT 396 GM JAR TP SCH ×3 (09:32→16:21)
[2016-09-29] MEDS: CALCIUM CARBONATE 500 MG TAB.CHEW GT SCH ×3 (09:32→16:21)
[2016-09-29] MEDS: CLOPIDOGREL BISULFATE 75 MG TABLET PO SCH (09:32)
[2016-09-29] MEDS: PROSOURCE / PROSTAT (PYXIS) 30 ML UDC GT SCH (09:32)
[2016-09-29] MEDS: ASCORBIC ACID 500 MG TABLET GT SCH ×2 (09:32→16:21)
[2016-09-29] MEDS: FAMOTIDINE (20 MG) 20 MG TABLET GT SCH ×2 (09:32→20:28)
[2016-09-29] MEDS: MULTIVIT, IRON, MIN NO. 8, FA 1 TAB GT SCH (09:32)
[2016-09-29] MEDS: CALCITRIOL 0.25 MCG CAPSULE PO SCH (09:32)
[2016-09-29] MEDS: CLOTRIMAZOLE/BETAMETASONE DIPROPIONATE 15 GM TUBE TP SCH ×2 (10:00→20:29)
[2016-09-29] MEDS: HYDROGEL DRESSING 90 GM TUBE TP SCH ×4 (10:00→20:29)
[2016-09-29] MEDS: HYDROGEN PEROXIDE 480 ML BOTTLE TP SCH ×2 (10:00→20:29)
[2016-09-29] MEDS: HYDROCODONE/APAP 10/325MG 1 EA TABLET GT PRN (12:50)
--- NOTE | 2016-09-29 16:19 | NUR ---
Wound nurse Yenni recommended to have surgeon see pt's right buttock. She said she will come to see pt tomorrow. Called Dr. Kyle Torres's office and left message with Art.
[2016-09-29 19:33] VITALS: BP 103/68
[2016-09-29] MEDS: ENOXAPARIN SODIUM 40 MG/0.4 ML DISP.SYRIN SQ SCH (20:29)
[2016-09-29] MEDS: METHOCARBAMOL (750MG) 750 MG TABLET GT PRN (21:12)
[2016-09-29] MEDS: ATORVASTATIN CALCIUM 20MG TABLET GT SCH (21:12)
[2016-09-29] MEDS: MAGNESIUM HYDROXIDE 30 ML UDC GT PRN (21:12)
[2016-09-30] MEDS: HYDROCODONE/APAP 10/325MG 1 EA TABLET GT PRN ×2 (04:23→15:31)
[2016-09-30 07:35] VITALS: BP 121/62
[2016-09-30] MEDS: MULTIVIT, IRON, MIN NO. 8, FA 1 TAB GT SCH (09:00)
[2016-09-30] MEDS: GABAPENTIN 300 MG CAPSULE GT SCH ×3 (09:00→17:00)
[2016-09-30] MEDS: METOPROLOL TARTRATE 25 MG TABLET GT SCH ×2 (09:00→17:00)
[2016-09-30] MEDS: HYDROGEL DRESSING 90 GM TUBE TP SCH ×3 (09:00→20:21)
[2016-09-30] MEDS: MINERAL OIL/PETROL OINT 396 GM JAR TP SCH ×3 (09:00→17:00)
[2016-09-30] MEDS: ACIDOPHILUS/BULGARICUS 1 EACH TAB.CHEW GT SCH ×3 (09:00→17:00)
[2016-09-30] MEDS: ESCITALOPRAM OXALATE (10 MG) 10 MG TABLET GT SCH (09:00)
[2016-09-30] MEDS: BACLOFEN (10 MG) 10 MG TABLET GT SCH ×4 (09:00→20:20)
[2016-09-30] MEDS: Z GUARD REMEDY 2 OZ OINT TP SCH ×5 (09:00→20:21)
[2016-09-30] MEDS: HYDROGEN PEROXIDE 480 ML BOTTLE TP SCH ×2 (09:00→20:21)
[2016-09-30] MEDS: CALCIUM CARBONATE 500 MG TAB.CHEW GT SCH ×3 (09:00→17:00)
[2016-09-30] MEDS: CRANBERRY GT SCH (09:00)
[2016-09-30] MEDS: POLYETHYLENE GLYCOL 3350 17 GM POWD.PACK GT SCH (09:00)
[2016-09-30] MEDS: ASCORBIC ACID 500 MG TABLET GT SCH ×2 (09:00→17:00)
[2016-09-30] MEDS: FAMOTIDINE (20 MG) 20 MG TABLET GT SCH ×2 (09:00→20:20)
[2016-09-30] MEDS: CALCITRIOL 0.25 MCG CAPSULE PO SCH (09:00)
[2016-09-30] MEDS: PROSOURCE / PROSTAT (PYXIS) 30 ML UDC GT SCH (09:00)
[2016-09-30] MEDS: CLOPIDOGREL BISULFATE 75 MG TABLET PO SCH (09:00)
[2016-09-30] MEDS: NEOMY SULF/BACITRAC ZN/POLY 15 GM TUBE TP SCH ×4 (09:00→20:21)
[2016-09-30] MEDS: CLOTRIMAZOLE/BETAMETASONE DIPROPIONATE 15 GM TUBE TP SCH ×2 (09:00→20:21)
[2016-09-30] MEDS: GENTAMICIN 0.1% OINT 15 GM TUBE TP SCH ×5 (09:00→20:21)
[2016-09-30] MEDS: HYDROCODONE/APAP 10/325MG 1 EA TABLET GT SCH ×2 (09:00→20:20)
--- NOTE | 2016-09-30 11:48 | NUR ---
Resident seen by Dr. Hercules (bar helper). He stated that resident had complaint of not being able to see as well from one eye. However, resident stated to him that he has been like that for several years and was denying any RX at this time. He noted to Dr. Hercules that it does not bother him and he does not want glasses. Notified feoujn-yx-ryv Vilma.
[2016-09-30] MEDS: METHOCARBAMOL (750MG) 750 MG TABLET GT PRN (15:31)
--- NOTE | 2016-09-30 16:00 | NUR ---
Place a follow-up call to Dr. Floyd Torres to assess patient's R buttock due to purplish discoloration present in the wound bed (approx 50%). Spoke with Kahlil and said he will relay message to .
[2016-09-30] MEDS ORDERED: HYDROGEL DRESSING 90 GM TUBE TP PRN (18:30)
[2016-09-30] MEDS ORDERED: Z GUARD REMEDY 2 OZ OINT TP PRN (18:30)
[2016-09-30] MEDS ORDERED: GENTAMICIN 0.1% OINT 15 GM TUBE TP PRN (18:30)
--- NOTE | 2016-09-30 18:50 | NUR ---
Received a phone call from CARLI Mitchell for Dr. Floyd Torres, surgeon and said that she will be in to see patient in AM.
[2016-09-30 19:34] VITALS: BP 109/72
[2016-09-30] MEDS: ENOXAPARIN SODIUM 40 MG/0.4 ML DISP.SYRIN SQ SCH (20:21)
[2016-09-30] MEDS: MAGNESIUM HYDROXIDE 30 ML UDC GT PRN (20:22)
[2016-09-30] MEDS: ATORVASTATIN CALCIUM 20MG TABLET GT SCH (21:15)
[2016-10-01] MEDS: ACETAMINOPHEN 650 MG/20 ML UDC- FOR SA PATIENTS ONLY GT PRN (00:53)
[2016-10-01] MEDS: HYDROCODONE/APAP 10/325MG 1 EA TABLET GT PRN (04:08)
[2016-10-01 07:34] VITALS: BP 142/86
[2016-10-01] MEDS: POLYETHYLENE GLYCOL 3350 17 GM POWD.PACK GT SCH (09:43)
[2016-10-01] MEDS: ESCITALOPRAM OXALATE (10 MG) 10 MG TABLET GT SCH (09:43)
[2016-10-01] MEDS: GABAPENTIN 300 MG CAPSULE GT SCH ×3 (09:43→17:39)
[2016-10-01] MEDS: METOPROLOL TARTRATE 25 MG TABLET GT SCH ×2 (09:43→17:39)
[2016-10-01] MEDS: CRANBERRY GT SCH (09:43)
[2016-10-01] MEDS: ACIDOPHILUS/BULGARICUS 1 EACH TAB.CHEW GT SCH ×3 (09:43→17:39)
[2016-10-01] MEDS: BACLOFEN (10 MG) 10 MG TABLET GT SCH ×4 (09:43→20:35)
[2016-10-01] MEDS: CLOPIDOGREL BISULFATE 75 MG TABLET PO SCH (09:44)
[2016-10-01] MEDS: HYDROCODONE/APAP 10/325MG 1 EA TABLET GT SCH ×2 (09:44→20:35)
[2016-10-01] MEDS: PROSOURCE / PROSTAT (PYXIS) 30 ML UDC GT SCH (09:44)
[2016-10-01] MEDS: FAMOTIDINE (20 MG) 20 MG TABLET GT SCH ×2 (09:44→20:35)
[2016-10-01] MEDS: MULTIVIT, IRON, MIN NO. 8, FA 1 TAB GT SCH (09:44)
[2016-10-01] MEDS: CALCITRIOL 0.25 MCG CAPSULE PO SCH (09:44)
[2016-10-01] MEDS: CALCIUM CARBONATE 500 MG TAB.CHEW GT SCH ×3 (09:44→17:39)
[2016-10-01] MEDS: ASCORBIC ACID 500 MG TABLET GT SCH ×2 (09:44→17:39)
[2016-10-01] MEDS: CLOTRIMAZOLE/BETAMETASONE DIPROPIONATE 15 GM TUBE TP SCH ×2 (10:30→20:36)
[2016-10-01] MEDS: GENTAMICIN 0.1% OINT 15 GM TUBE TP SCH ×4 (10:30→20:36)
[2016-10-01] MEDS: MINERAL OIL/PETROL OINT 396 GM JAR TP SCH ×3 (10:30→17:39)
[2016-10-01] MEDS: HYDROGEL DRESSING 90 GM TUBE TP SCH ×2 (10:30→20:36)
[2016-10-01] MEDS: Z GUARD REMEDY 2 OZ OINT TP SCH ×4 (10:30→20:36)
[2016-10-01] MEDS: NEOMY SULF/BACITRAC ZN/POLY 15 GM TUBE TP SCH ×4 (10:30→20:36)
[2016-10-01] MEDS: HYDROGEN PEROXIDE 480 ML BOTTLE TP SCH ×2 (10:30→20:36)
[2016-10-01 19:32] VITALS: BP 115/70
[2016-10-01] MEDS: Z GUARD REMEDY 4 OZ OINT TP SCH (20:36)
[2016-10-01] MEDS: ENOXAPARIN SODIUM 40 MG/0.4 ML DISP.SYRIN SQ SCH (20:36)
--- NOTE | 2016-10-01 21:00 | NUR ---
seen by Paula BOYCE regarding the sacral wound an buttock wound. recommended to have debridment on right buttock wound but patient refused stating next time.
[2016-10-01] MEDS: ATORVASTATIN CALCIUM 20MG TABLET GT SCH (21:17)
[2016-10-02] MEDS: MAGNESIUM HYDROXIDE 30 ML UDC GT PRN (05:19)
[2016-10-02 08:00] VITALS: BP 125/80
[2016-10-02] MEDS: Z GUARD REMEDY 4 OZ OINT TP SCH ×2 (09:00→21:08)
[2016-10-02] MEDS: Z GUARD REMEDY 2 OZ OINT TP SCH ×4 (09:00→21:08)
[2016-10-02] MEDS: NEOMY SULF/BACITRAC ZN/POLY 15 GM TUBE TP SCH ×4 (09:00→21:08)
[2016-10-02] MEDS: GENTAMICIN 0.1% OINT 15 GM TUBE TP SCH ×4 (09:00→21:07)
[2016-10-02] MEDS: CLOTRIMAZOLE/BETAMETASONE DIPROPIONATE 15 GM TUBE TP SCH ×2 (09:00→21:07)
[2016-10-02] MEDS: HYDROGEL DRESSING 90 GM TUBE TP SCH ×2 (09:00→21:07)
[2016-10-02] MEDS: HYDROGEN PEROXIDE 480 ML BOTTLE TP SCH ×2 (09:00→21:07)
[2016-10-02] MEDS: MINERAL OIL/PETROL OINT 396 GM JAR TP SCH ×3 (09:00→17:27)
[2016-10-02] MEDS: ESCITALOPRAM OXALATE (10 MG) 10 MG TABLET GT SCH (09:39)
[2016-10-02] MEDS: BACLOFEN (10 MG) 10 MG TABLET GT SCH ×4 (09:39→21:07)
[2016-10-02] MEDS: CRANBERRY GT SCH (09:39)
[2016-10-02] MEDS: ACIDOPHILUS/BULGARICUS 1 EACH TAB.CHEW GT SCH ×3 (09:39→16:25)
[2016-10-02] MEDS: MULTIVIT, IRON, MIN NO. 8, FA 1 TAB GT SCH (09:40)
[2016-10-02] MEDS: METOPROLOL TARTRATE 25 MG TABLET GT SCH ×2 (09:40→16:25)
[2016-10-02] MEDS: CALCITRIOL 0.25 MCG CAPSULE PO SCH (09:40)
[2016-10-02] MEDS: FAMOTIDINE (20 MG) 20 MG TABLET GT SCH ×2 (09:40→21:07)
[2016-10-02] MEDS: PROSOURCE / PROSTAT (PYXIS) 30 ML UDC GT SCH (09:40)
[2016-10-02] MEDS: POLYETHYLENE GLYCOL 3350 17 GM POWD.PACK GT SCH (09:40)
[2016-10-02] MEDS: CLOPIDOGREL BISULFATE 75 MG TABLET PO SCH (09:40)
[2016-10-02] MEDS: CALCIUM CARBONATE 500 MG TAB.CHEW GT SCH ×3 (09:40→16:25)
[2016-10-02] MEDS: ASCORBIC ACID 500 MG TABLET GT SCH ×2 (09:40→16:25)
[2016-10-02] MEDS: HYDROCODONE/APAP 10/325MG 1 EA TABLET GT SCH ×2 (09:40→21:07)
[2016-10-02] MEDS: GABAPENTIN 300 MG CAPSULE GT SCH ×3 (09:40→16:25)
[2016-10-02] MEDS: HYDROCODONE/APAP 10/325MG 1 EA TABLET GT PRN (15:00)
[2016-10-02 20:25] VITALS: BP 106/65
[2016-10-02] MEDS: ENOXAPARIN SODIUM 40 MG/0.4 ML DISP.SYRIN SQ SCH (21:07)
[2016-10-02] MEDS: ATORVASTATIN CALCIUM 20MG TABLET GT SCH (21:08)
[2016-10-03] MEDS: HYDROCODONE/APAP 10/325MG 1 EA TABLET GT PRN ×2 (05:41→10:00)
[2016-10-03 08:01] VITALS: BP 126/68
[2016-10-03] MEDS: ACIDOPHILUS/BULGARICUS 1 EACH TAB.CHEW GT SCH ×3 (08:23→17:00)
[2016-10-03] MEDS: ESCITALOPRAM OXALATE (10 MG) 10 MG TABLET GT SCH (08:23)
[2016-10-03] MEDS: FAMOTIDINE (20 MG) 20 MG TABLET GT SCH ×2 (08:23→20:42)
[2016-10-03] MEDS: METOPROLOL TARTRATE 25 MG TABLET GT SCH ×2 (08:23→17:00)
[2016-10-03] MEDS: PROSOURCE / PROSTAT (PYXIS) 30 ML UDC GT SCH (08:23)
[2016-10-03] MEDS: GABAPENTIN 300 MG CAPSULE GT SCH ×3 (08:23→17:00)
[2016-10-03] MEDS: POLYETHYLENE GLYCOL 3350 17 GM POWD.PACK GT SCH (08:23)
[2016-10-03] MEDS: CRANBERRY GT SCH (08:23)
[2016-10-03] MEDS: BACLOFEN (10 MG) 10 MG TABLET GT SCH ×4 (08:23→20:42)
[2016-10-03] MEDS: CALCITRIOL 0.25 MCG CAPSULE PO SCH (08:24)
[2016-10-03] MEDS: MULTIVIT, IRON, MIN NO. 8, FA 1 TAB GT SCH (08:24)
[2016-10-03] MEDS: CALCIUM CARBONATE 500 MG TAB.CHEW GT SCH ×3 (08:24→17:00)
[2016-10-03] MEDS: CLOPIDOGREL BISULFATE 75 MG TABLET PO SCH (08:24)
[2016-10-03] MEDS: ASCORBIC ACID 500 MG TABLET GT SCH ×2 (08:24→17:00)
[2016-10-03] MEDS: MINERAL OIL/PETROL OINT 396 GM JAR TP SCH ×3 (13:00→17:00)
[2016-10-03] MEDS: HYDROCODONE/APAP 10/325MG 1 EA TABLET GT SCH ×2 (14:00→20:42)
[2016-10-03] MEDS: NEOMY SULF/BACITRAC ZN/POLY 15 GM TUBE TP SCH ×4 (15:00→21:29)
[2016-10-03] MEDS: Z GUARD REMEDY 4 OZ OINT TP SCH ×2 (15:00→21:29)
[2016-10-03] MEDS: HYDROGEN PEROXIDE 480 ML BOTTLE TP SCH ×2 (15:00→21:29)
[2016-10-03] MEDS: Z GUARD REMEDY 2 OZ OINT TP SCH ×4 (15:00→21:29)
[2016-10-03] MEDS: GENTAMICIN 0.1% OINT 15 GM TUBE TP SCH ×4 (15:00→21:29)
[2016-10-03] MEDS: CLOTRIMAZOLE/BETAMETASONE DIPROPIONATE 15 GM TUBE TP SCH ×2 (15:00→21:29)
[2016-10-03] MEDS: HYDROGEL DRESSING 90 GM TUBE TP SCH ×2 (15:00→21:29)
[2016-10-03] MEDS: ENOXAPARIN SODIUM 40 MG/0.4 ML DISP.SYRIN SQ SCH (20:42)
[2016-10-03] MEDS: ATORVASTATIN CALCIUM 20MG TABLET GT SCH (21:29)
[2016-10-04 07:51] VITALS: BP 144/82
[2016-10-04] MEDS: ACIDOPHILUS/BULGARICUS 1 EACH TAB.CHEW GT SCH ×3 (09:00→17:00)
[2016-10-04] MEDS: CRANBERRY GT SCH (09:00)
[2016-10-04] MEDS: BACLOFEN (10 MG) 10 MG TABLET GT SCH ×4 (09:00→20:47)
[2016-10-04] MEDS: CALCITRIOL 0.25 MCG CAPSULE PO SCH (09:00)
[2016-10-04] MEDS: MULTIVIT, IRON, MIN NO. 8, FA 1 TAB GT SCH (09:00)
[2016-10-04] MEDS: CALCIUM CARBONATE 500 MG TAB.CHEW GT SCH ×3 (09:00→17:00)
[2016-10-04] MEDS: PROSOURCE / PROSTAT (PYXIS) 30 ML UDC GT SCH (09:00)
[2016-10-04] MEDS: ESCITALOPRAM OXALATE (10 MG) 10 MG TABLET GT SCH (09:00)
[2016-10-04] MEDS: ASCORBIC ACID 500 MG TABLET GT SCH ×2 (09:00→17:00)
[2016-10-04] MEDS: GABAPENTIN 300 MG CAPSULE GT SCH ×3 (09:00→17:00)
[2016-10-04] MEDS: CLOPIDOGREL BISULFATE 75 MG TABLET PO SCH (09:00)
[2016-10-04] MEDS: FAMOTIDINE (20 MG) 20 MG TABLET GT SCH ×2 (09:00→20:48)
[2016-10-04] MEDS: METOPROLOL TARTRATE 25 MG TABLET GT SCH ×2 (09:00→17:00)
[2016-10-04] MEDS: POLYETHYLENE GLYCOL 3350 17 GM POWD.PACK GT SCH (09:00)
[2016-10-04] MEDS: MINERAL OIL/PETROL OINT 396 GM JAR TP SCH ×3 (13:00→17:00)
[2016-10-04] MEDS: HYDROCODONE/APAP 10/325MG 1 EA TABLET GT SCH ×2 (14:00→20:48)
[2016-10-04] MEDS: GENTAMICIN 0.1% OINT 15 GM TUBE TP SCH ×4 (15:00→21:34)
[2016-10-04] MEDS: HYDROGEL DRESSING 90 GM TUBE TP SCH ×2 (15:00→21:34)
[2016-10-04] MEDS: HYDROGEN PEROXIDE 480 ML BOTTLE TP SCH ×2 (15:00→21:34)
[2016-10-04] MEDS: CLOTRIMAZOLE/BETAMETASONE DIPROPIONATE 15 GM TUBE TP SCH ×2 (15:00→21:34)
[2016-10-04] MEDS: NEOMY SULF/BACITRAC ZN/POLY 15 GM TUBE TP SCH ×2 (15:00→21:34)
[2016-10-04] MEDS: Z GUARD REMEDY 4 OZ OINT TP SCH ×2 (15:00→21:35)
[2016-10-04] MEDS: Z GUARD REMEDY 2 OZ OINT TP SCH ×4 (15:00→21:34)
[2016-10-04 20:20] VITALS: BP 110/73
[2016-10-04] MEDS: ENOXAPARIN SODIUM 40 MG/0.4 ML DISP.SYRIN SQ SCH (20:48)
[2016-10-04] MEDS: ATORVASTATIN CALCIUM 20MG TABLET GT SCH (21:35)
[2016-10-05 07:39] VITALS: BP 114/75
[2016-10-05] MEDS: Z GUARD REMEDY 4 OZ OINT TP SCH ×2 (09:00→21:00)
[2016-10-05] MEDS: GENTAMICIN 0.1% OINT 15 GM TUBE TP SCH ×4 (09:00→21:00)
[2016-10-05] MEDS: Z GUARD REMEDY 2 OZ OINT TP SCH ×4 (09:00→21:00)
[2016-10-05] MEDS: HYDROGEN PEROXIDE 480 ML BOTTLE TP SCH ×2 (09:00→21:00)
[2016-10-05] MEDS: CLOTRIMAZOLE/BETAMETASONE DIPROPIONATE 15 GM TUBE TP SCH ×2 (09:00→21:00)
[2016-10-05] MEDS: NEOMY SULF/BACITRAC ZN/POLY 15 GM TUBE TP SCH ×2 (09:00→21:00)
[2016-10-05] MEDS: CALCIUM CARBONATE 500 MG TAB.CHEW GT SCH ×3 (09:35→17:00)
[2016-10-05] MEDS: CLOPIDOGREL BISULFATE 75 MG TABLET PO SCH (09:35)
[2016-10-05] MEDS: FAMOTIDINE (20 MG) 20 MG TABLET GT SCH ×2 (09:35→21:00)
[2016-10-05] MEDS: MULTIVIT, IRON, MIN NO. 8, FA 1 TAB GT SCH ×2 (09:35→21:00)
[2016-10-05] MEDS: HYDROCODONE/APAP 10/325MG 1 EA TABLET GT SCH ×2 (09:35→21:00)
[2016-10-05] MEDS: PROSOURCE / PROSTAT (PYXIS) 30 ML UDC GT SCH ×2 (09:35→21:00)
[2016-10-05] MEDS: ASCORBIC ACID 500 MG TABLET GT SCH ×2 (09:35→17:00)
[2016-10-05] MEDS: CALCITRIOL 0.25 MCG CAPSULE PO SCH (09:35)
[2016-10-05] MEDS: CRANBERRY GT SCH (09:36)
[2016-10-05] MEDS: POLYETHYLENE GLYCOL 3350 17 GM POWD.PACK GT SCH (09:36)
[2016-10-05] MEDS: BACLOFEN (10 MG) 10 MG TABLET GT SCH ×4 (09:36→21:00)
[2016-10-05] MEDS: METOPROLOL TARTRATE 25 MG TABLET GT SCH ×2 (09:36→17:00)
[2016-10-05] MEDS: ESCITALOPRAM OXALATE (10 MG) 10 MG TABLET GT SCH (09:36)
[2016-10-05] MEDS: MINERAL OIL/PETROL OINT 396 GM JAR TP SCH ×3 (09:36→17:00)
[2016-10-05] MEDS: GABAPENTIN 300 MG CAPSULE GT SCH ×3 (09:36→17:00)
[2016-10-05] MEDS: ACIDOPHILUS/BULGARICUS 1 EACH TAB.CHEW GT SCH ×3 (09:36→17:00)
[2016-10-05] MEDS: HYDROGEL DRESSING 90 GM TUBE TP SCH ×2 (10:00→21:00)
[2016-10-05 20:12] VITALS: BP 106/73
[2016-10-05] MEDS: ENOXAPARIN SODIUM 40 MG/0.4 ML DISP.SYRIN SQ SCH (21:00)
[2016-10-05] MEDS: ATORVASTATIN CALCIUM 20MG TABLET GT SCH (22:05)
[2016-10-06 07:45] VITALS: BP 118/75
[2016-10-06] MEDS: CLOTRIMAZOLE/BETAMETASONE DIPROPIONATE 15 GM TUBE TP SCH ×2 (09:00→21:49)
[2016-10-06] MEDS: HYDROGEN PEROXIDE 480 ML BOTTLE TP SCH ×2 (09:00→21:49)
[2016-10-06] MEDS: GENTAMICIN 0.1% OINT 15 GM TUBE TP SCH ×4 (09:00→21:48)
[2016-10-06] MEDS: ACIDOPHILUS/BULGARICUS 1 EACH TAB.CHEW GT SCH ×3 (09:22→17:44)
[2016-10-06] MEDS: METOPROLOL TARTRATE 25 MG TABLET GT SCH ×2 (09:22→17:45)
[2016-10-06] MEDS: HYDROCODONE/APAP 10/325MG 1 EA TABLET GT SCH ×2 (09:22→21:48)
[2016-10-06] MEDS: BACLOFEN (10 MG) 10 MG TABLET GT SCH ×4 (09:22→21:47)
[2016-10-06] MEDS: ESCITALOPRAM OXALATE (10 MG) 10 MG TABLET GT SCH (09:22)
[2016-10-06] MEDS: GABAPENTIN 300 MG CAPSULE GT SCH ×3 (09:22→17:45)
[2016-10-06] MEDS: CALCIUM CARBONATE 500 MG TAB.CHEW GT SCH ×3 (09:23→17:45)
[2016-10-06] MEDS: ASCORBIC ACID 500 MG TABLET GT SCH ×2 (09:23→17:45)
[2016-10-06] MEDS: FAMOTIDINE (20 MG) 20 MG TABLET GT SCH ×2 (09:23→21:48)
[2016-10-06] MEDS: CLOPIDOGREL BISULFATE 75 MG TABLET PO SCH (09:23)
[2016-10-06] MEDS: CALCITRIOL 0.25 MCG CAPSULE PO SCH (09:23)
[2016-10-06] MEDS: MINERAL OIL/PETROL OINT 396 GM JAR TP SCH ×3 (09:34→17:45)
[2016-10-06] MEDS: HYDROGEL DRESSING 90 GM TUBE TP SCH ×2 (10:00→21:48)
[2016-10-06] MEDS: Z GUARD REMEDY 2 OZ OINT TP SCH ×5 (10:00→21:49)
--- NOTE | 2016-10-06 19:30 | NUR ---
pt yarbrough intact total urine output 900cc, no hematuria noted, pt afebrile temp of 98.1
[2016-10-06 20:18] VITALS: BP 114/63
[2016-10-06] MEDS: POLYETHYLENE GLYCOL 3350 17 GM POWD.PACK GT SCH (21:47)
[2016-10-06] MEDS: ENOXAPARIN SODIUM 40 MG/0.4 ML DISP.SYRIN SQ SCH (21:48)
[2016-10-06] MEDS: PROSOURCE / PROSTAT (PYXIS) 30 ML UDC GT SCH (21:48)
[2016-10-06] MEDS: MULTIVIT, IRON, MIN NO. 8, FA 1 TAB GT SCH (21:48)
[2016-10-06] MEDS: ATORVASTATIN CALCIUM 20MG TABLET GT SCH (21:49)
--- NOTE | 2016-10-07 05:50 | NUR ---
PT VITAL SIGN STABLE,AFEBRILE.URINE OUTPUT FROM GUZMAN CATH CLEAR YELLOW,NO HEMATURIA AND WITH GOOD AMOUNT.NO SIGN AND SYMPTOMS OF INFECTION.
[2016-10-07 07:38] VITALS: BP 118/72
[2016-10-07] MEDS: GENTAMICIN 0.1% OINT 15 GM TUBE TP SCH ×4 (09:00→21:40)
[2016-10-07] MEDS: HYDROGEL DRESSING 90 GM TUBE TP SCH ×2 (09:00→21:39)
[2016-10-07] MEDS: Z GUARD REMEDY 2 OZ OINT TP SCH ×6 (09:00→21:40)
[2016-10-07] MEDS: CLOTRIMAZOLE/BETAMETASONE DIPROPIONATE 15 GM TUBE TP SCH ×2 (09:00→21:40)
[2016-10-07] MEDS: ACIDOPHILUS/BULGARICUS 1 EACH TAB.CHEW GT SCH ×3 (09:31→17:22)
[2016-10-07] MEDS: ESCITALOPRAM OXALATE (10 MG) 10 MG TABLET GT SCH (09:31)
[2016-10-07] MEDS: MINERAL OIL/PETROL OINT 396 GM JAR TP SCH ×3 (09:32→17:22)
[2016-10-07] MEDS: METOPROLOL TARTRATE 25 MG TABLET GT SCH ×2 (09:32→17:22)
[2016-10-07] MEDS: BACLOFEN (10 MG) 10 MG TABLET GT SCH ×4 (09:32→21:37)
[2016-10-07] MEDS: CALCITRIOL 0.25 MCG CAPSULE PO SCH (09:32)
[2016-10-07] MEDS: GABAPENTIN 300 MG CAPSULE GT SCH ×3 (09:32→17:22)
[2016-10-07] MEDS: ASCORBIC ACID 500 MG TABLET GT SCH ×2 (09:32→17:22)
[2016-10-07] MEDS: FAMOTIDINE (20 MG) 20 MG TABLET GT SCH ×2 (09:32→21:38)
[2016-10-07] MEDS: HYDROCODONE/APAP 10/325MG 1 EA TABLET GT SCH ×2 (09:32→21:38)
[2016-10-07] MEDS: CALCIUM CARBONATE 500 MG TAB.CHEW GT SCH ×3 (09:32→17:00)
[2016-10-07] MEDS: CLOPIDOGREL BISULFATE 75 MG TABLET PO SCH (09:32)
[2016-10-07] MEDS: POLYETHYLENE GLYCOL 3350 17 GM POWD.PACK GT SCH (09:32)
[2016-10-07] MEDS: HYDROGEN PEROXIDE 480 ML BOTTLE TP SCH ×2 (09:33→21:40)
--- NOTE | 2016-10-07 19:21 | NUR ---
Pt stable condition, noted with 800cc clear yellow urine, no hematuria, afebrile, temp 97.8
[2016-10-07 19:48] VITALS: BP 90/59
[2016-10-07] MEDS: PROSOURCE / PROSTAT (PYXIS) 30 ML UDC GT SCH (21:38)
[2016-10-07] MEDS: MULTIVIT, IRON, MIN NO. 8, FA 1 TAB GT SCH (21:38)
[2016-10-07] MEDS: ENOXAPARIN SODIUM 40 MG/0.4 ML DISP.SYRIN SQ SCH (21:39)
[2016-10-07] MEDS: ATORVASTATIN CALCIUM 20MG TABLET GT SCH (21:40)
[2016-10-08 07:33] VITALS: BP 110/74
[2016-10-08] MEDS: METOPROLOL TARTRATE 25 MG TABLET GT SCH ×2 (08:35→17:00)
[2016-10-08] MEDS: POLYETHYLENE GLYCOL 3350 17 GM POWD.PACK GT SCH (08:35)
[2016-10-08] MEDS: BACLOFEN (10 MG) 10 MG TABLET GT SCH ×4 (08:35→21:00)
[2016-10-08] MEDS: ACIDOPHILUS/BULGARICUS 1 EACH TAB.CHEW GT SCH ×3 (08:35→17:00)
[2016-10-08] MEDS: ESCITALOPRAM OXALATE (10 MG) 10 MG TABLET GT SCH (08:35)
[2016-10-08] MEDS: CALCIUM CARBONATE 500 MG TAB.CHEW GT SCH ×3 (08:36→17:00)
[2016-10-08] MEDS: FAMOTIDINE (20 MG) 20 MG TABLET GT SCH ×2 (08:36→21:00)
[2016-10-08] MEDS: CALCITRIOL 0.25 MCG CAPSULE PO SCH (08:36)
[2016-10-08] MEDS: ASCORBIC ACID 500 MG TABLET GT SCH ×2 (08:36→17:00)
[2016-10-08] MEDS: GABAPENTIN 300 MG CAPSULE GT SCH ×3 (08:36→17:00)
[2016-10-08] MEDS: CLOPIDOGREL BISULFATE 75 MG TABLET PO SCH (08:36)
[2016-10-08] MEDS: HYDROCODONE/APAP 10/325MG 1 EA TABLET GT SCH ×2 (08:36→21:00)
[2016-10-08] MEDS: GENTAMICIN 0.1% OINT 15 GM TUBE TP SCH ×4 (09:30→21:00)
[2016-10-08] MEDS: Z GUARD REMEDY 2 OZ OINT TP SCH ×6 (09:30→21:00)
[2016-10-08] MEDS: MINERAL OIL/PETROL OINT 396 GM JAR TP SCH ×3 (09:30→17:00)
[2016-10-08] MEDS: HYDROGEN PEROXIDE 480 ML BOTTLE TP SCH ×2 (09:30→21:00)
[2016-10-08] MEDS: HYDROGEL DRESSING 90 GM TUBE TP SCH ×2 (09:30→21:00)
[2016-10-08] MEDS: CLOTRIMAZOLE/BETAMETASONE DIPROPIONATE 15 GM TUBE TP SCH ×2 (09:30→21:00)
[2016-10-08] MEDS: HYDROCODONE/APAP 10/325MG 1 EA TABLET GT PRN (14:00)
[2016-10-08 20:14] VITALS: BP 100/58
[2016-10-08] MEDS: ENOXAPARIN SODIUM 40 MG/0.4 ML DISP.SYRIN SQ SCH (21:00)
[2016-10-08] MEDS: PROSOURCE / PROSTAT (PYXIS) 30 ML UDC GT SCH (21:00)
[2016-10-08] MEDS: MULTIVIT, IRON, MIN NO. 8, FA 1 TAB GT SCH (21:00)
[2016-10-08] MEDS: ATORVASTATIN CALCIUM 20MG TABLET GT SCH (22:00)
[2016-10-09 07:35] VITALS: BP 118/78
[2016-10-09] MEDS: Z GUARD REMEDY 2 OZ OINT TP SCH ×6 (09:00→21:25)
[2016-10-09] MEDS: HYDROGEL DRESSING 90 GM TUBE TP SCH ×2 (09:00→21:24)
[2016-10-09] MEDS: HYDROGEN PEROXIDE 480 ML BOTTLE TP SCH ×2 (09:00→21:25)
[2016-10-09] MEDS: GENTAMICIN 0.1% OINT 15 GM TUBE TP SCH ×4 (09:00→21:24)
[2016-10-09] MEDS: CLOTRIMAZOLE/BETAMETASONE DIPROPIONATE 15 GM TUBE TP SCH ×2 (09:00→21:25)
[2016-10-09] MEDS: POLYETHYLENE GLYCOL 3350 17 GM POWD.PACK GT SCH (09:56)
[2016-10-09] MEDS: METOPROLOL TARTRATE 25 MG TABLET GT SCH ×2 (09:56→17:14)
[2016-10-09] MEDS: ESCITALOPRAM OXALATE (10 MG) 10 MG TABLET GT SCH (09:56)
[2016-10-09] MEDS: ACIDOPHILUS/BULGARICUS 1 EACH TAB.CHEW GT SCH ×3 (09:56→17:13)
[2016-10-09] MEDS: GABAPENTIN 300 MG CAPSULE GT SCH ×3 (09:56→17:14)
[2016-10-09] MEDS: BACLOFEN (10 MG) 10 MG TABLET GT SCH ×4 (09:56→21:23)
[2016-10-09] MEDS: CALCIUM CARBONATE 500 MG TAB.CHEW GT SCH ×3 (09:57→17:14)
[2016-10-09] MEDS: MINERAL OIL/PETROL OINT 396 GM JAR TP SCH ×3 (09:57→17:14)
[2016-10-09] MEDS: CALCITRIOL 0.25 MCG CAPSULE PO SCH (09:57)
[2016-10-09] MEDS: FAMOTIDINE (20 MG) 20 MG TABLET GT SCH ×2 (09:57→21:24)
[2016-10-09] MEDS: CLOPIDOGREL BISULFATE 75 MG TABLET PO SCH (09:57)
[2016-10-09] MEDS: ASCORBIC ACID 500 MG TABLET GT SCH ×2 (09:57→17:14)
[2016-10-09] MEDS: HYDROCODONE/APAP 10/325MG 1 EA TABLET GT SCH ×2 (09:57→21:24)
[2016-10-09] MEDS: HYDROCODONE/APAP 10/325MG 1 EA TABLET GT PRN (12:28)
[2016-10-09 19:54] VITALS: BP 90/60
[2016-10-09] MEDS: MULTIVIT, IRON, MIN NO. 8, FA 1 TAB GT SCH (21:24)
[2016-10-09] MEDS: ENOXAPARIN SODIUM 40 MG/0.4 ML DISP.SYRIN SQ SCH (21:24)
[2016-10-09] MEDS: PROSOURCE / PROSTAT (PYXIS) 30 ML UDC GT SCH (21:24)
[2016-10-09] MEDS: ATORVASTATIN CALCIUM 20MG TABLET GT SCH (21:25)
[2016-10-10 07:34] VITALS: BP 111/68
[2016-10-10] MEDS: HYDROCODONE/APAP 10/325MG 1 EA TABLET GT SCH ×2 (09:00→21:22)
[2016-10-10] MEDS: ACIDOPHILUS/BULGARICUS 1 EACH TAB.CHEW GT SCH ×3 (09:35→17:00)
[2016-10-10] MEDS: BACLOFEN (10 MG) 10 MG TABLET GT SCH ×4 (09:35→21:22)
[2016-10-10] MEDS: ESCITALOPRAM OXALATE (10 MG) 10 MG TABLET GT SCH (09:35)
[2016-10-10] MEDS: FAMOTIDINE (20 MG) 20 MG TABLET GT SCH ×2 (09:36→21:22)
[2016-10-10] MEDS: HYDROGEN PEROXIDE 480 ML BOTTLE TP SCH ×2 (09:36→21:23)
[2016-10-10] MEDS: POLYETHYLENE GLYCOL 3350 17 GM POWD.PACK GT SCH (09:36)
[2016-10-10] MEDS: Z GUARD REMEDY 2 OZ OINT TP SCH ×6 (09:36→21:23)
[2016-10-10] MEDS: CLOPIDOGREL BISULFATE 75 MG TABLET PO SCH (09:36)
[2016-10-10] MEDS: CALCIUM CARBONATE 500 MG TAB.CHEW GT SCH ×3 (09:36→17:00)
[2016-10-10] MEDS: ASCORBIC ACID 500 MG TABLET GT SCH ×2 (09:36→17:00)
[2016-10-10] MEDS: METOPROLOL TARTRATE 25 MG TABLET GT SCH ×2 (09:36→17:00)
[2016-10-10] MEDS: CALCITRIOL 0.25 MCG CAPSULE PO SCH (09:36)
[2016-10-10] MEDS: CLOTRIMAZOLE/BETAMETASONE DIPROPIONATE 15 GM TUBE TP SCH ×2 (09:36→21:23)
[2016-10-10] MEDS: GENTAMICIN 0.1% OINT 15 GM TUBE TP SCH ×4 (09:36→21:23)
[2016-10-10] MEDS: HYDROGEL DRESSING 90 GM TUBE TP SCH ×2 (09:36→21:23)
[2016-10-10] MEDS: GABAPENTIN 300 MG CAPSULE GT SCH ×3 (09:36→17:00)
[2016-10-10] MEDS: MINERAL OIL/PETROL OINT 396 GM JAR TP SCH ×3 (09:36→17:00)
--- NOTE | 2016-10-10 18:33 | NUR ---
Resident awake, alert and verbally responsive. Denies pain or any discomfort at this time. Trach in place and patent, no sob noted. suctioned prn with moderate pale yellow secretions. Gt intact and in place. F/C in place and patent, draining pale yellow colored urine. no hematuria noted. Resident is afebrile, will continue to monitor.
[2016-10-10 19:48] VITALS: BP 108/67
[2016-10-10] MEDS: MULTIVIT, IRON, MIN NO. 8, FA 1 TAB GT SCH (21:22)
[2016-10-10] MEDS: ENOXAPARIN SODIUM 40 MG/0.4 ML DISP.SYRIN SQ SCH (21:22)
[2016-10-10] MEDS: PROSOURCE / PROSTAT (PYXIS) 30 ML UDC GT SCH (21:22)
[2016-10-10] MEDS: ATORVASTATIN CALCIUM 20MG TABLET GT SCH (21:23)
[2016-10-11 07:47] VITALS: BP 125/75
[2016-10-11] MEDS: HYDROCODONE/APAP 10/325MG 1 EA TABLET GT SCH ×2 (09:00→21:00)
--- NOTE | 2016-10-11 09:30 | NUR ---
Called Dr. Gonzalez's office to request him to do the routine trach tube change for the pt as referred by Dr. Ugarte. Left message with Subha.
[2016-10-11] MEDS: BACLOFEN (10 MG) 10 MG TABLET GT SCH ×4 (09:46→21:28)
[2016-10-11] MEDS: ASCORBIC ACID 500 MG TABLET GT SCH ×2 (09:46→17:37)
[2016-10-11] MEDS: POLYETHYLENE GLYCOL 3350 17 GM POWD.PACK GT SCH (09:46)
[2016-10-11] MEDS: FAMOTIDINE (20 MG) 20 MG TABLET GT SCH ×2 (09:46→21:28)
[2016-10-11] MEDS: METOPROLOL TARTRATE 25 MG TABLET GT SCH ×2 (09:46→17:37)
[2016-10-11] MEDS: CALCIUM CARBONATE 500 MG TAB.CHEW GT SCH ×3 (09:46→17:37)
[2016-10-11] MEDS: CLOPIDOGREL BISULFATE 75 MG TABLET PO SCH (09:46)
[2016-10-11] MEDS: CALCITRIOL 0.25 MCG CAPSULE PO SCH (09:46)
[2016-10-11] MEDS: ACIDOPHILUS/BULGARICUS 1 EACH TAB.CHEW GT SCH ×3 (09:46→17:36)
[2016-10-11] MEDS: GABAPENTIN 300 MG CAPSULE GT SCH ×3 (09:46→17:37)
[2016-10-11] MEDS: ESCITALOPRAM OXALATE (10 MG) 10 MG TABLET GT SCH (09:46)
[2016-10-11] MEDS: HYDROGEN PEROXIDE 480 ML BOTTLE TP SCH ×2 (09:47→21:28)
[2016-10-11] MEDS: Z GUARD REMEDY 2 OZ OINT TP SCH ×6 (09:47→21:28)
[2016-10-11] MEDS: MINERAL OIL/PETROL OINT 396 GM JAR TP SCH ×3 (09:47→17:37)
[2016-10-11] MEDS: GENTAMICIN 0.1% OINT 15 GM TUBE TP SCH ×4 (09:47→21:28)
[2016-10-11] MEDS: HYDROGEL DRESSING 90 GM TUBE TP SCH ×2 (09:47→21:28)
[2016-10-11] MEDS: CLOTRIMAZOLE/BETAMETASONE DIPROPIONATE 15 GM TUBE TP SCH ×2 (09:47→21:28)
[2016-10-11] MEDS: MAGNESIUM HYDROXIDE 30 ML UDC GT PRN (10:55)
[2016-10-11 20:00] VITALS: BP 85/57
--- NOTE | 2016-10-11 20:30 | NUR ---
RN NOTES Urine yellowish and clear. No s/s of infection, afebrile. Will continue to monitor.
[2016-10-11] MEDS: ENOXAPARIN SODIUM 40 MG/0.4 ML DISP.SYRIN SQ SCH (21:00)
[2016-10-11] MEDS: MULTIVIT, IRON, MIN NO. 8, FA 1 TAB GT SCH (21:28)
[2016-10-11] MEDS: PROSOURCE / PROSTAT (PYXIS) 30 ML UDC GT SCH (21:28)
[2016-10-11] MEDS: ATORVASTATIN CALCIUM 20MG TABLET GT SCH (21:30)
[2016-10-12] MEDS: HYDROCODONE/APAP 10/325MG 1 EA TABLET GT PRN (05:18)
[2016-10-12 07:48] VITALS: BP 102/66
[2016-10-12] MEDS: ACIDOPHILUS/BULGARICUS 1 EACH TAB.CHEW GT SCH ×3 (09:25→17:26)
[2016-10-12] MEDS: ESCITALOPRAM OXALATE (10 MG) 10 MG TABLET GT SCH (09:26)
[2016-10-12] MEDS: POLYETHYLENE GLYCOL 3350 17 GM POWD.PACK GT SCH (09:26)
[2016-10-12] MEDS: GABAPENTIN 300 MG CAPSULE GT SCH ×3 (09:26→17:27)
[2016-10-12] MEDS: BACLOFEN (10 MG) 10 MG TABLET GT SCH ×4 (09:26→21:12)
[2016-10-12] MEDS: METOPROLOL TARTRATE 25 MG TABLET GT SCH ×2 (09:26→17:00)
[2016-10-12] MEDS: MINERAL OIL/PETROL OINT 396 GM JAR TP SCH ×3 (09:27→17:27)
[2016-10-12] MEDS: FAMOTIDINE (20 MG) 20 MG TABLET GT SCH ×2 (09:27→21:12)
[2016-10-12] MEDS: CLOPIDOGREL BISULFATE 75 MG TABLET PO SCH (09:27)
[2016-10-12] MEDS: ASCORBIC ACID 500 MG TABLET GT SCH ×2 (09:27→17:27)
[2016-10-12] MEDS: CALCIUM CARBONATE 500 MG TAB.CHEW GT SCH ×3 (09:27→17:27)
[2016-10-12] MEDS: CALCITRIOL 0.25 MCG CAPSULE PO SCH (09:27)
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
--- NOTE | 2016-10-12 11:00 | NUR ---
Today, the clinical advisor came to give Holy Eucharist to Resident. However, Resident, without greeting the clinical advisor (which is unusual), asked where his chair is connected to and to unplug it. Also said he cannot move his nancy stick." Teacher Music said she can't unplug the bed and will ask the Nurse. Resident then asked the clinical advisor" then you do it ".When the clinical advisor said let's "pray then you finish your business with your hunter " ( Naya)then Resident calm down and prayed with the clinical advisor. After receiving Holy Eucharist, Resident started giving orders to unplug his bed from the wall. Resident sounded upset and confused about his place orientation.
[2016-10-12] MEDS: HYDROCODONE/APAP 10/325MG 1 EA TABLET GT SCH ×2 (12:00→21:12)
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
[2016-10-12] MEDS: GENTAMICIN 0.1% OINT 15 GM TUBE TP SCH ×4 (13:00→21:13)
[2016-10-12] MEDS: Z GUARD REMEDY 2 OZ OINT TP SCH ×6 (13:00→21:13)
[2016-10-12] MEDS: CLOTRIMAZOLE/BETAMETASONE DIPROPIONATE 15 GM TUBE TP SCH ×2 (13:00→21:13)
[2016-10-12] MEDS: HYDROGEL DRESSING 90 GM TUBE TP SCH ×2 (13:00→21:13)
[2016-10-12] MEDS: HYDROGEN PEROXIDE 480 ML BOTTLE TP SCH ×2 (13:00→21:13)
[2016-10-12 13:32] LABS: CALCIUM, SERUM 8.2 mg/dL (8.5-10.1); CREATININE 0.7 mg/dL (0.6-1.3); POTASSIUM 6.1 mmol/L (3.5-5.1)
[2016-10-12] MEDS ORDERED: SODIUM POLYSTYRENE SULFONATE 15 G/60 ML BOTTLE GT ONE (15:30)
[2016-10-12 15:43] LABS: BASOPHILS % (AUTO) 0.2 % (0.0-2.0); EOSINOPHILS # (AUTO) 0.1 /CMM (0.0-0.7); EOSINOPHILS % (AUTO) 0.6 % (0.0-6.0); HEMATOCRIT 38 % (39-51); LYMPHOCYTES # (AUTO) 1.8 /CMM (0.8-4.8); LYMPHOCYTES % (AUTO) 9.5 % (20.0-44.0); MEAN CORPUSCULAR HEMOGLOBIN 28 PG (26.0-33.0); MEAN CORPUSCULAR HGB CONC 32 g/dl (31.0-36.0); MEAN CORPUSCULAR VOLUME 88 fL (80-96); MONOCYTES # (AUTO) 1.1 /CMM (0.1-1.30); MONOCYTES % (AUTO) 5.7 % (2.0-12.0); NEUTROPHILS # (AUTO) 16.3 /CMM (1.8-8.9); PLATELET COUNT (AUTO) 401 /CMM (150-450); RDW COEFFICIENT OF VARIATION 18.5 (11.5-15.0); RED BLOOD CELL COUNT(AUTO) 4.29 MIL/uL (4.5-6.0); WHITE BLOOD COUNT (AUTO) 19.4 K/uL (4.3-11.0)
[2016-10-12 16:14] LABS: APPEARANCE,URINE CLOUDY (CLEAR); BILIRUBIN,URINE NEGATIVE (NEGATIVE); BLOOD, URINE 3+ Ery/uL (NEGATIVE); COLOR,URINE YELLOW (YELLOW); KETONES,URINE NEGATIVE (NEGATIVE); LEUKOCYTE ESTERASE ,URINE 3+ (NEGATIVE); NITRITE, URINE POSITIVE (NEGATIVE); PROTEIN,URINE 1+ mg/dl (NEGATIVE); UGLUCOSE NEGATIVE (NEGATIVE); UROBILINOGEN,URINE 0.2 EU/dL (0.2)
[2016-10-12 16:42] LABS: WBC,URINE TOO NUMEROUS TO COUN /HPF (0-3)
[2016-10-12 16:43] LABS: BACTERIA,URINE Many /HPF (None Seen); RBC,URINE 21-50 /HPF (0-2); SQUAMOUS EPITHELIAL CELL,UR Rare /HPF (None Seen)
--- NOTE | 2016-10-12 16:56 | NUR ---
Notified Dr. Ugarte result of CBC, WBC 19.4, referred to CARLI Ortiz ID as ordered. CARLI Ortiz notified with new order to do blood culture ans she will be in shortly. Spoke with patient's sister in law, Vilma made aware of patient's behavior this morning and the lab result showing elevate WBC. Vilma said that she will be out of town but can be reached with same phone #, and will be back in town after Day. Reassured family that she will be notified of any change in patient's condition.
[2016-10-12] MEDS: ACETAMINOPHEN 650 MG/20 ML UDC- FOR SA PATIENTS ONLY GT PRN (17:44)
--- NOTE | 2016-10-12 18:33 | NUR ---
Patient noted to have hallucinations throughout shift. He had episodes of yelling very upset while several people talked to him saying things that are not correct at the present reality like "Unplug my wheelchair" "I want to take off" "Don't you see my right hand, I am trying to grab my joystick," "I want to leave" "Don't get water on me" "I have electricity on me." Patient kept claiming he was sitting on his power electric wheelchair that was plugged to the wall according to his reality. All staff who interacted to him noted the alteration in his mental status including activities department and the visiting marketing automation manager. Patient was talked and reassured that he was not sitting in his power wheelchair. He was notified that he was laying in bed in an low air loss mattress. Kept clean and comfortable. Encouraged to drink more fluids. Fluids given as ordered. Jackman catheter changed, collected urine as ordered. Wound care, and all total care provided. Call light in reach. Tylenol given as ordered for complaint of headache with no further complaint after one hour reassessment. V/S. T. 99.6, BP 96/57, P 88 R 18. At this time patient is awake comfortable with continued slightly confusion. No further c/o headache.
--- NOTE | 2016-10-12 18:45 | NUR ---
Seen and examined by CARLI Ortiz ID, V/S at this time, 99.1, 96/57, 88, 18 96%, Diana stated she will order IV ATB in [facility]. She dis not want to culture sputum despite secretions greenish in color. Endorsed.
[2016-10-12] MEDS ORDERED: FEE PK DOSING 1 MIN EA MC ONE (19:59)
[2016-10-12] MEDS: VANCOMYCIN 1.25 GM in IV D5W 500 ML IV SCH (20:00)
--- NOTE | 2016-10-12 20:00 | NUR ---
Received an order from Diana ,Vancomycin 1.25gm IV q 8hrs ,Merrem 500mg IV q 8 hrs for bacterial infection/increased WBC,CXR in the morning.Will carry out orders.Vilma sister in law notified with new orders,appreciative of the call.Will continue to monitor.
[2016-10-12 20:09] VITALS: BP 111/70
[2016-10-12] MEDS: MEROPENEM 500 MG in IV NS 0.9% 50 ML IV SCH (21:00)
[2016-10-12] MEDS: ENOXAPARIN SODIUM 40 MG/0.4 ML DISP.SYRIN SQ SCH (21:12)
[2016-10-12] MEDS: MULTIVIT, IRON, MIN NO. 8, FA 1 TAB GT SCH (21:12)
[2016-10-12] MEDS: PROSOURCE / PROSTAT (PYXIS) 30 ML UDC GT SCH (21:12)
[2016-10-12] MEDS: ATORVASTATIN CALCIUM 20MG TABLET GT SCH (21:13)
[2016-10-13] MEDS: VANCOMYCIN 1.25 GM in IV D5W 500 ML IV SCH ×2 (04:10→11:46)
[2016-10-13] MEDS: MEROPENEM 500 MG in IV NS 0.9% 50 ML IV SCH ×3 (05:35→21:13)
[2016-10-13] MEDS: ACETAMINOPHEN 650 MG/20 ML UDC- FOR SA PATIENTS ONLY GT PRN (06:04)
[2016-10-13 07:37] LABS: CREATININE 0.8 mg/dL (0.6-1.3); POTASSIUM 3.9 mmol/L (3.5-5.1)
[2016-10-13 07:44] VITALS: BP 131/75
[2016-10-13] MEDS: ESCITALOPRAM OXALATE (10 MG) 10 MG TABLET GT SCH (08:24)
[2016-10-13] MEDS: ACIDOPHILUS/BULGARICUS 1 EACH TAB.CHEW GT SCH ×3 (08:24→16:58)
[2016-10-13] MEDS: BACLOFEN (10 MG) 10 MG TABLET GT SCH ×4 (08:24→20:59)
[2016-10-13] MEDS: GABAPENTIN 300 MG CAPSULE GT SCH ×3 (08:25→16:58)
[2016-10-13] MEDS: POLYETHYLENE GLYCOL 3350 17 GM POWD.PACK GT SCH (08:25)
[2016-10-13] MEDS: METOPROLOL TARTRATE 25 MG TABLET GT SCH ×2 (08:25→17:00)
[2016-10-13] MEDS: CLOTRIMAZOLE/BETAMETASONE DIPROPIONATE 15 GM TUBE TP SCH ×2 (08:26→21:00)
[2016-10-13] MEDS: CLOPIDOGREL BISULFATE 75 MG TABLET PO SCH (08:26)
[2016-10-13] MEDS: CALCITRIOL 0.25 MCG CAPSULE PO SCH (08:26)
[2016-10-13] MEDS: ASCORBIC ACID 500 MG TABLET GT SCH ×2 (08:26→16:59)
[2016-10-13] MEDS: HYDROCODONE/APAP 10/325MG 1 EA TABLET GT SCH ×3 (08:26→21:00)
[2016-10-13] MEDS: MINERAL OIL/PETROL OINT 396 GM JAR TP SCH ×3 (08:26→16:59)
[2016-10-13] MEDS: CALCIUM CARBONATE 500 MG TAB.CHEW GT SCH ×3 (08:26→16:59)
[2016-10-13] MEDS: FAMOTIDINE (20 MG) 20 MG TABLET GT SCH ×2 (08:26→20:59)
[2016-10-13] MEDS: HYDROGEN PEROXIDE 480 ML BOTTLE TP SCH ×2 (08:26→21:00)
[2016-10-13] MEDS: Z GUARD REMEDY 2 OZ OINT TP SCH ×6 (08:27→21:01)
[2016-10-13] MEDS: GENTAMICIN 0.1% OINT 15 GM TUBE TP SCH ×4 (09:00→21:00)
[2016-10-13] MEDS: HYDROGEL DRESSING 90 GM TUBE TP SCH ×2 (09:00→21:00)
[2016-10-13] MEDS: HYDROCODONE/APAP 10/325MG 1 EA TABLET GT PRN (15:52)
--- NOTE | 2016-10-13 18:19 | NUR ---
Dr. Curiel inserted midline catheter. Pt tolerated procedure well.
[2016-10-13 20:00] VITALS: BP 103/56
[2016-10-13] MEDS: PROSOURCE / PROSTAT (PYXIS) 30 ML UDC GT SCH (20:59)
[2016-10-13] MEDS: MULTIVIT, IRON, MIN NO. 8, FA 1 TAB GT SCH (20:59)
[2016-10-13] MEDS: ENOXAPARIN SODIUM 40 MG/0.4 ML DISP.SYRIN SQ SCH (21:00)
[2016-10-13] MEDS: ATORVASTATIN CALCIUM 20MG TABLET GT SCH (21:01)
[2016-10-14] MEDS: MEROPENEM 500 MG in IV NS 0.9% 50 ML IV SCH ×3 (05:14→21:19)
[2016-10-14] MEDS: HYDROCODONE/APAP 10/325MG 1 EA TABLET GT PRN (05:23)
[2016-10-14 06:51] LABS: CALCIUM, SERUM 8.8 mg/dL (8.5-10.1); CREATININE 0.7 mg/dL (0.6-1.3); POTASSIUM 4.2 mmol/L (3.5-5.1)
[2016-10-14 07:49] VITALS: BP 106/73
[2016-10-14] MEDS: VANCOMYCIN 1 GM in IV D5W 250 ML IV SCH ×2 (08:37→20:17)
[2016-10-14] MEDS: ESCITALOPRAM OXALATE (10 MG) 10 MG TABLET GT SCH (09:19)
[2016-10-14] MEDS: ACIDOPHILUS/BULGARICUS 1 EACH TAB.CHEW GT SCH ×3 (09:19→17:53)
[2016-10-14] MEDS: METOPROLOL TARTRATE 25 MG TABLET GT SCH ×2 (09:19→17:55)
[2016-10-14] MEDS: BACLOFEN (10 MG) 10 MG TABLET GT SCH ×4 (09:19→21:50)
[2016-10-14] MEDS: FAMOTIDINE (20 MG) 20 MG TABLET GT SCH ×2 (09:20→21:50)
[2016-10-14] MEDS: POLYETHYLENE GLYCOL 3350 17 GM POWD.PACK GT SCH (09:20)
[2016-10-14] MEDS: GABAPENTIN 300 MG CAPSULE GT SCH ×3 (09:20→17:54)
[2016-10-14] MEDS: CALCITRIOL 0.25 MCG CAPSULE PO SCH (09:21)
[2016-10-14] MEDS: ASCORBIC ACID 500 MG TABLET GT SCH ×2 (09:21→17:54)
[2016-10-14] MEDS: CLOPIDOGREL BISULFATE 75 MG TABLET PO SCH (09:21)
[2016-10-14] MEDS: MINERAL OIL/PETROL OINT 396 GM JAR TP SCH ×3 (09:22→17:54)
[2016-10-14] MEDS: CALCIUM CARBONATE 500 MG TAB.CHEW GT SCH ×3 (09:22→17:54)
[2016-10-14] MEDS: HYDROCODONE/APAP 10/325MG 1 EA TABLET GT SCH ×2 (09:29→21:30)
[2016-10-14] MEDS: Z GUARD REMEDY 2 OZ OINT TP SCH ×6 (11:00→21:50)
[2016-10-14] MEDS: CLOTRIMAZOLE/BETAMETASONE DIPROPIONATE 15 GM TUBE TP SCH ×2 (11:00→21:50)
[2016-10-14] MEDS: GENTAMICIN 0.1% OINT 15 GM TUBE TP SCH ×4 (11:00→21:50)
[2016-10-14] MEDS: HYDROGEN PEROXIDE 480 ML BOTTLE TP SCH ×2 (11:00→21:50)
[2016-10-14] MEDS: HYDROGEL DRESSING 90 GM TUBE TP SCH ×2 (11:00→21:50)
--- NOTE | 2016-10-14 18:50 | NUR ---
Seen and examined by Demario Padilla NP, furnace mason for Dr. Walker New order given to repeat CBC on Monday , IDT meeting held, current medications, treatment and labs reviewed. Dietary recommended to change diet from regular to CCHO 60 gm diet due to increase in weight.
[2016-10-14 19:51] VITALS: BP 111/58
[2016-10-14] MEDS: PROSOURCE / PROSTAT (PYXIS) 30 ML UDC GT SCH (21:50)
[2016-10-14] MEDS: MULTIVIT, IRON, MIN NO. 8, FA 1 TAB GT SCH (21:50)
[2016-10-14] MEDS: ENOXAPARIN SODIUM 40 MG/0.4 ML DISP.SYRIN SQ SCH (21:50)
[2016-10-14] MEDS: ATORVASTATIN CALCIUM 20MG TABLET GT SCH (22:34)
[2016-10-15] MEDS: HYDROCODONE/APAP 10/325MG 1 EA TABLET GT PRN ×2 (02:39→08:00)
[2016-10-15] MEDS: MEROPENEM 500 MG in IV NS 0.9% 50 ML IV SCH ×4 (05:27→21:00)
[2016-10-15 08:22] VITALS: BP 133/73
[2016-10-15] MEDS: POLYETHYLENE GLYCOL 3350 17 GM POWD.PACK GT SCH (08:23)
[2016-10-15] MEDS: METOPROLOL TARTRATE 25 MG TABLET GT SCH ×2 (08:23→17:45)
[2016-10-15] MEDS: ACIDOPHILUS/BULGARICUS 1 EACH TAB.CHEW GT SCH ×3 (08:23→17:45)
[2016-10-15] MEDS: BACLOFEN (10 MG) 10 MG TABLET GT SCH ×4 (08:23→21:36)
[2016-10-15] MEDS: CALCITRIOL 0.25 MCG CAPSULE PO SCH (08:23)
[2016-10-15] MEDS: FAMOTIDINE (20 MG) 20 MG TABLET GT SCH ×2 (08:23→21:36)
[2016-10-15] MEDS: CLOPIDOGREL BISULFATE 75 MG TABLET PO SCH (08:23)
[2016-10-15] MEDS: GABAPENTIN 300 MG CAPSULE GT SCH ×3 (08:23→17:46)
[2016-10-15] MEDS: CALCIUM CARBONATE 500 MG TAB.CHEW GT SCH ×3 (08:23→17:46)
[2016-10-15] MEDS: ESCITALOPRAM OXALATE (10 MG) 10 MG TABLET GT SCH (08:23)
[2016-10-15] MEDS: ASCORBIC ACID 500 MG TABLET GT SCH ×2 (08:23→17:46)
[2016-10-15] MEDS: MINERAL OIL/PETROL OINT 396 GM JAR TP SCH ×3 (08:24→17:49)
[2016-10-15 08:30] LABS: BASOPHILS % (AUTO) 0.1 % (0.0-2.0); EOSINOPHILS # (AUTO) 0.3 /CMM (0.0-0.7); EOSINOPHILS % (AUTO) 4.5 % (0.0-6.0); HEMATOCRIT 31 % (39-51); HEMOGLOBIN 9.9 g/dL (13.5-17.5); LYMPHOCYTES # (AUTO) 1.7 /CMM (0.8-4.8); MEAN CORPUSCULAR HEMOGLOBIN 28 PG (26.0-33.0); MEAN CORPUSCULAR HGB CONC 32 g/dl (31.0-36.0); MEAN CORPUSCULAR VOLUME 88 fL (80-96); MONOCYTES # (AUTO) 0.7 /CMM (0.1-1.30); NEUTROPHILS # (AUTO) 4.8 /CMM (1.8-8.9); NEUTROPHILS % (AUTO) 63.4 % (43.0-81.0); PLATELET COUNT (AUTO) 342 /CMM (150-450); RDW COEFFICIENT OF VARIATION 17.7 (11.5-15.0); RED BLOOD CELL COUNT(AUTO) 3.55 MIL/uL (4.5-6.0); WHITE BLOOD COUNT (AUTO) 7.6 K/uL (4.3-11.0)
[2016-10-15] MEDS: VANCOMYCIN 1 GM in IV D5W 250 ML IV SCH ×2 (08:57→20:00)
[2016-10-15 09:06] LABS: CALCIUM, SERUM 8.2 mg/dL (8.5-10.1); CREATININE 0.7 mg/dL (0.6-1.3); POTASSIUM 4.3 mmol/L (3.5-5.1)
--- NOTE | 2016-10-15 10:20 | NUR ---
Liliane Ferraro NP spoke with resident explaining she will debride R buttocks wound on Monday. Order given to get consent for the procedure. Ms Ferraro will bring the supplies she needs. Endorsed to obtain consent from patient's sister in law closer to the day of the procedure.
[2016-10-15] MEDS: HYDROCODONE/APAP 10/325MG 1 EA TABLET GT SCH ×2 (14:15→21:33)
--- NOTE | 2016-10-15 14:30 | NUR ---
Notified CARLI Ortiz of final urine cx result with negative blood culture. WBC 7.6 Per Jeanette Ortiz NP will come tonight to review the ATB and determine stop date. Endorsed.
[2016-10-15] MEDS: HYDROGEL DRESSING 90 GM TUBE TP SCH ×2 (15:15→21:37)
[2016-10-15] MEDS: HYDROGEN PEROXIDE 480 ML BOTTLE TP SCH ×2 (15:15→21:37)
[2016-10-15] MEDS: Z GUARD REMEDY 2 OZ OINT TP SCH ×6 (15:15→21:38)
[2016-10-15] MEDS: GENTAMICIN 0.1% OINT 15 GM TUBE TP SCH ×4 (15:15→21:37)
[2016-10-15] MEDS: CLOTRIMAZOLE/BETAMETASONE DIPROPIONATE 15 GM TUBE TP SCH ×2 (15:15→21:37)
[2016-10-15 20:02] VITALS: BP 101/52
[2016-10-15] MEDS: MULTIVIT, IRON, MIN NO. 8, FA 1 TAB GT SCH (21:37)
[2016-10-15] MEDS: ENOXAPARIN SODIUM 40 MG/0.4 ML DISP.SYRIN SQ SCH (21:37)
[2016-10-15] MEDS: PROSOURCE / PROSTAT (PYXIS) 30 ML UDC GT SCH (21:37)
[2016-10-15] MEDS: ATORVASTATIN CALCIUM 20MG TABLET GT SCH (21:38)
[2016-10-16] MEDS: MEROPENEM 500 MG in IV NS 0.9% 50 ML IV SCH ×4 (05:11→20:41)
[2016-10-16] MEDS: ACETAMINOPHEN 650 MG/20 ML UDC- FOR SA PATIENTS ONLY GT PRN (07:04)
[2016-10-16 07:13] LABS: CALCIUM, SERUM 8.6 mg/dL (8.5-10.1); CREATININE 0.6 mg/dL (0.6-1.3); POTASSIUM 4.5 mmol/L (3.5-5.1)
[2016-10-16 07:42] VITALS: BP 129/75
[2016-10-16] MEDS: VANCOMYCIN 1 GM in IV D5W 250 ML IV SCH ×3 (09:10→20:12)
[2016-10-16] MEDS: MINERAL OIL/PETROL OINT 396 GM JAR TP SCH ×3 (09:46→16:55)
[2016-10-16] MEDS: BACLOFEN (10 MG) 10 MG TABLET GT SCH ×4 (09:46→21:25)
[2016-10-16] MEDS: POLYETHYLENE GLYCOL 3350 17 GM POWD.PACK GT SCH (09:46)
[2016-10-16] MEDS: ACIDOPHILUS/BULGARICUS 1 EACH TAB.CHEW GT SCH ×3 (09:46→16:55)
[2016-10-16] MEDS: CLOPIDOGREL BISULFATE 75 MG TABLET PO SCH (09:46)
[2016-10-16] MEDS: GENTAMICIN 0.1% OINT 15 GM TUBE TP SCH ×4 (09:46→21:26)
[2016-10-16] MEDS: CALCITRIOL 0.25 MCG CAPSULE PO SCH (09:46)
[2016-10-16] MEDS: METOPROLOL TARTRATE 25 MG TABLET GT SCH ×2 (09:46→16:55)
[2016-10-16] MEDS: HYDROGEL DRESSING 90 GM TUBE TP SCH ×2 (09:46→21:26)
[2016-10-16] MEDS: GABAPENTIN 300 MG CAPSULE GT SCH ×3 (09:46→16:55)
[2016-10-16] MEDS: CALCIUM CARBONATE 500 MG TAB.CHEW GT SCH ×3 (09:46→16:55)
[2016-10-16] MEDS: FAMOTIDINE (20 MG) 20 MG TABLET GT SCH ×2 (09:46→21:25)
[2016-10-16] MEDS: ESCITALOPRAM OXALATE (10 MG) 10 MG TABLET GT SCH (09:46)
[2016-10-16] MEDS: ASCORBIC ACID 500 MG TABLET GT SCH ×2 (09:46→16:55)
[2016-10-16] MEDS: Z GUARD REMEDY 2 OZ OINT TP SCH ×6 (09:47→21:26)
[2016-10-16] MEDS: HYDROGEN PEROXIDE 480 ML BOTTLE TP SCH ×2 (09:47→21:26)
[2016-10-16] MEDS: CLOTRIMAZOLE/BETAMETASONE DIPROPIONATE 15 GM TUBE TP SCH ×2 (09:47→21:26)
[2016-10-16] MEDS: HYDROCODONE/APAP 10/325MG 1 EA TABLET GT SCH ×2 (09:48→21:00)
--- NOTE | 2016-10-16 15:00 | NUR ---
got call from pharmacy spoke to riaz and got new order for Fosfomycin 3g one time dose,for positive urine culture.faxed to [facility] pharmacy .waiting for call back.
[2016-10-16] MEDS: HYDROCODONE/APAP 10/325MG 1 EA TABLET GT PRN (15:04)
[2016-10-16] MEDS ORDERED: FOSFOMYCIN TROMETHAMINE 3 G/PKT PACKET GT ONE (18:00)
[2016-10-16 19:49] VITALS: BP 122/75
--- NOTE | 2016-10-16 20:00 | NUR ---
RN NOTES Seen and examined by CARLI Reid with new order noted and carried out.
--- NOTE | 2016-10-16 20:42 | NUR ---
ENRIQUE AND TARUN WERE AC, SHERIF GROVER EMBLEM FUSER TENDER D/C BOTH.
[2016-10-16] MEDS: MULTIVIT, IRON, MIN NO. 8, FA 1 TAB GT SCH (21:25)
[2016-10-16] MEDS: PROSOURCE / PROSTAT (PYXIS) 30 ML UDC GT SCH (21:25)
[2016-10-16] MEDS: ENOXAPARIN SODIUM 40 MG/0.4 ML DISP.SYRIN SQ SCH (21:26)
[2016-10-16] MEDS: ATORVASTATIN CALCIUM 20MG TABLET GT SCH (21:26)
[2016-10-17] MEDS: ACIDOPHILUS/BULGARICUS 1 EACH TAB.CHEW GT SCH ×3 (09:36→17:00)
[2016-10-17] MEDS: HYDROCODONE/APAP 10/325MG 1 EA TABLET GT SCH ×2 (09:36→21:00)
[2016-10-17] MEDS: BACLOFEN (10 MG) 10 MG TABLET GT SCH ×4 (09:36→21:00)
[2016-10-17] MEDS: ESCITALOPRAM OXALATE (10 MG) 10 MG TABLET GT SCH (09:36)
[2016-10-17] MEDS: Z GUARD REMEDY 2 OZ OINT TP SCH ×6 (09:37→21:00)
[2016-10-17] MEDS: FAMOTIDINE (20 MG) 20 MG TABLET GT SCH ×2 (09:37→21:00)
[2016-10-17] MEDS: METOPROLOL TARTRATE 25 MG TABLET GT SCH ×2 (09:37→17:00)
[2016-10-17] MEDS: CLOPIDOGREL BISULFATE 75 MG TABLET PO SCH (09:37)
[2016-10-17] MEDS: GABAPENTIN 300 MG CAPSULE GT SCH ×3 (09:37→17:00)
[2016-10-17] MEDS: HYDROGEN PEROXIDE 480 ML BOTTLE TP SCH ×2 (09:37→21:00)
[2016-10-17] MEDS: CALCIUM CARBONATE 500 MG TAB.CHEW GT SCH ×3 (09:37→17:00)
[2016-10-17] MEDS: MINERAL OIL/PETROL OINT 396 GM JAR TP SCH ×3 (09:37→17:00)
[2016-10-17] MEDS: HYDROGEL DRESSING 90 GM TUBE TP SCH ×2 (09:37→21:00)
[2016-10-17] MEDS: CLOTRIMAZOLE/BETAMETASONE DIPROPIONATE 15 GM TUBE TP SCH ×2 (09:37→21:00)
[2016-10-17] MEDS: CALCITRIOL 0.25 MCG CAPSULE PO SCH (09:37)
[2016-10-17] MEDS: GENTAMICIN 0.1% OINT 15 GM TUBE TP SCH ×4 (09:37→21:00)
[2016-10-17] MEDS: POLYETHYLENE GLYCOL 3350 17 GM POWD.PACK GT SCH (09:37)
[2016-10-17] MEDS: ASCORBIC ACID 500 MG TABLET GT SCH ×2 (09:37→17:00)
[2016-10-17 10:55] LABS: BASOPHILS % (AUTO) 0.2 % (0.0-2.0); EOSINOPHILS # (AUTO) 0.2 /CMM (0.0-0.7); EOSINOPHILS % (AUTO) 2.9 % (0.0-6.0); HEMATOCRIT 34 % (39-51); HEMOGLOBIN 10.6 g/dL (13.5-17.5); LYMPHOCYTES % (AUTO) 12.6 % (20.0-44.0); MEAN CORPUSCULAR HEMOGLOBIN 28 PG (26.0-33.0); MEAN CORPUSCULAR HGB CONC 32 g/dl (31.0-36.0); MEAN CORPUSCULAR VOLUME 88 fL (80-96); MONOCYTES # (AUTO) 0.6 /CMM (0.1-1.30); NEUTROPHILS # (AUTO) 5.8 /CMM (1.8-8.9); NEUTROPHILS % (AUTO) 76.3 % (43.0-81.0); PLATELET COUNT (AUTO) 410 /CMM (150-450); RDW COEFFICIENT OF VARIATION 17.6 (11.5-15.0); RED BLOOD CELL COUNT(AUTO) 3.85 MIL/uL (4.5-6.0); WHITE BLOOD COUNT (AUTO) 7.6 K/uL (4.3-11.0)
[2016-10-17 10:56] LABS: CALCIUM, SERUM 8.8 mg/dL (8.5-10.1); CREATININE 0.7 mg/dL (0.6-1.3)
--- NOTE | 2016-10-17 12:41 | NUR ---
Monthly trach tube change done by Dr. Gonzalez. Minimal bleeding noted. Pt was cursing Dr. Gonzalez and Dr. Gonzalez told the pt he understands that sometimes trach change can be uncomfortable.
[2016-10-17 12:44] VITALS: BP 112/59
[2016-10-17] MEDS ORDERED: LIDOCAINE 2% JEL 5 ML TUBE TP ONE (13:30)
--- NOTE | 2016-10-17 15:00 | NUR ---
Sacral wound debridement was done by CARLI Ferraro. Pt tolerated procedure well.
[2016-10-17] MEDS ORDERED: LIDOCAINE 2% JEL 5 ML TUBE TP PRN (18:00)
[2016-10-17] MEDS ORDERED: FOSFOMYCIN TROMETHAMINE 3 G/PKT PACKET GT ONE (18:00)
[2016-10-17 19:55] VITALS: BP 106/72
[2016-10-17 20:00] VITALS: BP 106/72
[2016-10-17] MEDS: MULTIVIT, IRON, MIN NO. 8, FA 1 TAB GT SCH (21:00)
[2016-10-17] MEDS: PROSOURCE / PROSTAT (PYXIS) 30 ML UDC GT SCH (21:00)
[2016-10-17] MEDS: ENOXAPARIN SODIUM 40 MG/0.4 ML DISP.SYRIN SQ SCH (21:00)
[2016-10-17] MEDS: ATORVASTATIN CALCIUM 20MG TABLET GT SCH (22:12)
[2016-10-18 07:20] LABS: CALCIUM, SERUM 8.8 mg/dL (8.5-10.1); CREATININE 0.6 mg/dL (0.6-1.3); POTASSIUM 4.3 mmol/L (3.5-5.1)
[2016-10-18 08:00] VITALS: BP 134/75
[2016-10-18] MEDS: POLYETHYLENE GLYCOL 3350 17 GM POWD.PACK GT SCH (09:23)
[2016-10-18] MEDS: CALCIUM CARBONATE 500 MG TAB.CHEW GT SCH ×3 (09:23→17:25)
[2016-10-18] MEDS: METOPROLOL TARTRATE 25 MG TABLET GT SCH ×2 (09:23→17:25)
[2016-10-18] MEDS: ESCITALOPRAM OXALATE (10 MG) 10 MG TABLET GT SCH (09:23)
[2016-10-18] MEDS: CLOPIDOGREL BISULFATE 75 MG TABLET PO SCH (09:23)
[2016-10-18] MEDS: ACIDOPHILUS/BULGARICUS 1 EACH TAB.CHEW GT SCH ×3 (09:23→17:25)
[2016-10-18] MEDS: GABAPENTIN 300 MG CAPSULE GT SCH ×3 (09:23→17:25)
[2016-10-18] MEDS: FAMOTIDINE (20 MG) 20 MG TABLET GT SCH ×2 (09:23→20:31)
[2016-10-18] MEDS: BACLOFEN (10 MG) 10 MG TABLET GT SCH ×4 (09:23→20:31)
[2016-10-18] MEDS: ASCORBIC ACID 500 MG TABLET GT SCH ×2 (09:23→17:25)
[2016-10-18] MEDS: GENTAMICIN 0.1% OINT 15 GM TUBE TP SCH ×4 (09:24→20:32)
[2016-10-18] MEDS: Z GUARD REMEDY 2 OZ OINT TP SCH ×6 (09:24→20:32)
[2016-10-18] MEDS: HYDROGEN PEROXIDE 480 ML BOTTLE TP SCH ×2 (09:24→20:32)
[2016-10-18] MEDS: HYDROGEL DRESSING 90 GM TUBE TP SCH ×2 (09:24→20:31)
[2016-10-18] MEDS: CLOTRIMAZOLE/BETAMETASONE DIPROPIONATE 15 GM TUBE TP SCH (09:24)
[2016-10-18] MEDS: MINERAL OIL/PETROL OINT 396 GM JAR TP SCH ×3 (09:24→17:25)
[2016-10-18] MEDS: CALCITRIOL 0.25 MCG CAPSULE PO SCH (09:24)
--- NOTE | 2016-10-18 10:00 | NUR ---
Seen by Dr. Ugarte. 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 Also notified him that pt is currently off antibiotics, last dose of Fosfomycin given yesterday, pt afebrile. He said he will review pt's urine culture result.
--- NOTE | 2016-10-18 11:22 | NUR ---
Called infection control nurse Shasta and reminded her to review pt's urine culture result as well as the recommendations of RESEARCH WORKER ENCYCLOPEDIA Jeanette Mckeon that can be found in her progress notes. Shasta said she will review them.
[2016-10-18] MEDS: HYDROCODONE/APAP 10/325MG 1 EA TABLET GT SCH ×2 (12:10→20:37)
--- NOTE | 2016-10-18 12:52 | NUR ---
Spoke with infection control nurse Shasta. Pt does not have ESBL in the urine anymore so she said contact isolation for ESBL urine can be DC'd. However, she said to still place pt on contact isolation for CRE urine since urine C & S shows CRE. Notified Dr. Walker and pt's jnyodx-cs-edw Vilma Marley.
--- NOTE | 2016-10-18 13:12 | NUR ---
Spoke with pt's oerhol-lu-jla Vilma. According to her, pt's sister called her today and mentioned that pt's diet was changed due to diabetes, but that it has been clarified that pt has no diabetes. Explained to Vilma that earlier this morning pt asked why his diet was changed and pt thought it was because he has diabetes. Charge nurse explained to pt that his diet was changed because he was gaining weight and not because he has diabetes.
--- NOTE | 2016-10-18 16:30 | NUR ---
resident is awake, alert and verbally responsive. no acute respiratory distress noted at this time. resident is afebrile. no acte s/s of uti at this time. incontinent of bladder, good pericare rendered. no hematuria, no c/o of pain when urinating noted. all needs attended, will continue to monitor.
[2016-10-18 20:10] VITALS: BP 121/76
[2016-10-18] MEDS: MULTIVIT, IRON, MIN NO. 8, FA 1 TAB GT SCH (20:31)
[2016-10-18] MEDS: ENOXAPARIN SODIUM 40 MG/0.4 ML DISP.SYRIN SQ SCH (20:31)
[2016-10-18] MEDS: PROSOURCE / PROSTAT (PYXIS) 30 ML UDC GT SCH (20:31)
[2016-10-18] MEDS: ATORVASTATIN CALCIUM 20MG TABLET GT SCH (22:00)
[2016-10-19 07:54] VITALS: BP 105/56
[2016-10-19] MEDS: ESCITALOPRAM OXALATE (10 MG) 10 MG TABLET GT SCH (09:35)
[2016-10-19] MEDS: ACIDOPHILUS/BULGARICUS 1 EACH TAB.CHEW GT SCH ×3 (09:35→17:01)
[2016-10-19] MEDS: BACLOFEN (10 MG) 10 MG TABLET GT SCH ×4 (09:35→21:42)
[2016-10-19] MEDS: FAMOTIDINE (20 MG) 20 MG TABLET GT SCH ×2 (09:39→21:43)
[2016-10-19] MEDS: CLOPIDOGREL BISULFATE 75 MG TABLET PO SCH (09:39)
[2016-10-19] MEDS: CALCITRIOL 0.25 MCG CAPSULE PO SCH (09:39)
[2016-10-19] MEDS: MINERAL OIL/PETROL OINT 396 GM JAR TP SCH ×3 (09:39→17:01)
[2016-10-19] MEDS: CALCIUM CARBONATE 500 MG TAB.CHEW GT SCH ×3 (09:39→17:01)
[2016-10-19] MEDS: METOPROLOL TARTRATE 25 MG TABLET GT SCH ×2 (09:39→17:01)
[2016-10-19] MEDS: POLYETHYLENE GLYCOL 3350 17 GM POWD.PACK GT SCH (09:39)
[2016-10-19] MEDS: ASCORBIC ACID 500 MG TABLET GT SCH ×2 (09:39→17:01)
[2016-10-19] MEDS: GABAPENTIN 300 MG CAPSULE GT SCH ×3 (09:39→17:01)
[2016-10-19] MEDS: HYDROCODONE/APAP 10/325MG 1 EA TABLET GT PRN (09:40)
[2016-10-19] MEDS: HYDROCODONE/APAP 10/325MG 1 EA TABLET GT SCH ×2 (14:00→21:43)
[2016-10-19] MEDS: HYDROGEN PEROXIDE 480 ML BOTTLE TP SCH ×2 (15:00→21:45)
[2016-10-19] MEDS: HYDROGEL DRESSING 90 GM TUBE TP SCH ×2 (15:00→21:44)
[2016-10-19] MEDS: GENTAMICIN 0.1% OINT 15 GM TUBE TP SCH ×4 (15:00→21:44)
[2016-10-19] MEDS: Z GUARD REMEDY 2 OZ OINT TP SCH ×6 (15:00→21:45)
[2016-10-19 19:40] VITALS: BP 139/83
[2016-10-19] MEDS: PROSOURCE / PROSTAT (PYXIS) 30 ML UDC GT SCH (21:43)
[2016-10-19] MEDS: MULTIVIT, IRON, MIN NO. 8, FA 1 TAB GT SCH (21:43)
[2016-10-19] MEDS: ENOXAPARIN SODIUM 40 MG/0.4 ML DISP.SYRIN SQ SCH (21:44)
[2016-10-19] MEDS: ATORVASTATIN CALCIUM 20MG TABLET GT SCH (21:45)
[2016-10-19] MEDS: CLOTRIMAZOLE 1% 15 GM TUBE TP SCH (21:45)
[2016-10-20 07:50] VITALS: BP 114/78
[2016-10-20] MEDS: FAMOTIDINE (20 MG) 20 MG TABLET GT SCH ×2 (08:48→21:27)
[2016-10-20] MEDS: GABAPENTIN 300 MG CAPSULE GT SCH ×3 (08:48→17:48)
[2016-10-20] MEDS: CALCITRIOL 0.25 MCG CAPSULE PO SCH (08:48)
[2016-10-20] MEDS: ASCORBIC ACID 500 MG TABLET GT SCH ×2 (08:48→17:48)
[2016-10-20] MEDS: ACIDOPHILUS/BULGARICUS 1 EACH TAB.CHEW GT SCH ×3 (08:48→17:48)
[2016-10-20] MEDS: CALCIUM CARBONATE 500 MG TAB.CHEW GT SCH ×3 (08:48→17:48)
[2016-10-20] MEDS: METOPROLOL TARTRATE 25 MG TABLET GT SCH ×2 (08:48→17:48)
[2016-10-20] MEDS: CLOPIDOGREL BISULFATE 75 MG TABLET PO SCH (08:48)
[2016-10-20] MEDS: BACLOFEN (10 MG) 10 MG TABLET GT SCH ×4 (08:48→21:27)
[2016-10-20] MEDS: ESCITALOPRAM OXALATE (10 MG) 10 MG TABLET GT SCH (08:48)
[2016-10-20] MEDS: POLYETHYLENE GLYCOL 3350 17 GM POWD.PACK GT SCH (08:48)
[2016-10-20] MEDS: HYDROCODONE/APAP 10/325MG 1 EA TABLET GT SCH ×2 (08:49→21:56)
[2016-10-20] MEDS: HYDROGEL DRESSING 90 GM TUBE TP SCH ×2 (09:00→22:20)
[2016-10-20] MEDS: MINERAL OIL/PETROL OINT 396 GM JAR TP SCH ×3 (09:00→17:48)
[2016-10-20] MEDS: CLOTRIMAZOLE 1% 15 GM TUBE TP SCH ×2 (10:00→22:20)
[2016-10-20] MEDS: GENTAMICIN 0.1% OINT 15 GM TUBE TP SCH ×4 (10:00→22:20)
[2016-10-20] MEDS: Z GUARD REMEDY 2 OZ OINT TP SCH ×6 (10:00→22:20)
[2016-10-20] MEDS: HYDROGEN PEROXIDE 480 ML BOTTLE TP SCH ×2 (10:00→22:20)
[2016-10-20] MEDS: HYDROCODONE/APAP 10/325MG 1 EA TABLET GT PRN (17:59)
[2016-10-20 19:36] VITALS: BP 126/73
[2016-10-20] MEDS: MULTIVIT, IRON, MIN NO. 8, FA 1 TAB GT SCH (21:27)
[2016-10-20] MEDS: PROSOURCE / PROSTAT (PYXIS) 30 ML UDC GT SCH (21:27)
[2016-10-20] MEDS: ENOXAPARIN SODIUM 40 MG/0.4 ML DISP.SYRIN SQ SCH (21:28)
[2016-10-20] MEDS: ATORVASTATIN CALCIUM 20MG TABLET GT SCH (22:29)
[2016-10-21 07:30] VITALS: BP 122/69
[2016-10-21] MEDS: ACIDOPHILUS/BULGARICUS 1 EACH TAB.CHEW GT SCH ×3 (08:42→17:31)
[2016-10-21] MEDS: BACLOFEN (10 MG) 10 MG TABLET GT SCH ×4 (08:43→21:55)
[2016-10-21] MEDS: ESCITALOPRAM OXALATE (10 MG) 10 MG TABLET GT SCH (08:43)
[2016-10-21] MEDS: POLYETHYLENE GLYCOL 3350 17 GM POWD.PACK GT SCH (08:44)
[2016-10-21] MEDS: GABAPENTIN 300 MG CAPSULE GT SCH ×3 (08:44→17:31)
[2016-10-21] MEDS: METOPROLOL TARTRATE 25 MG TABLET GT SCH ×2 (08:44→17:31)
[2016-10-21] MEDS: CALCIUM CARBONATE 500 MG TAB.CHEW GT SCH ×3 (08:45→17:31)
[2016-10-21] MEDS: ASCORBIC ACID 500 MG TABLET GT SCH ×2 (08:45→17:31)
[2016-10-21] MEDS: FAMOTIDINE (20 MG) 20 MG TABLET GT SCH ×2 (08:45→21:55)
[2016-10-21] MEDS: CLOPIDOGREL BISULFATE 75 MG TABLET PO SCH (08:46)
[2016-10-21] MEDS: CALCITRIOL 0.25 MCG CAPSULE PO SCH (08:46)
[2016-10-21] MEDS: HYDROCODONE/APAP 10/325MG 1 EA TABLET GT PRN (08:48)
[2016-10-21] MEDS: MINERAL OIL/PETROL OINT 396 GM JAR TP SCH ×3 (09:00→17:32)
[2016-10-21] MEDS: HYDROCODONE/APAP 10/325MG 1 EA TABLET GT SCH ×2 (13:40→21:55)
[2016-10-21] MEDS: HYDROGEL DRESSING 90 GM TUBE TP SCH ×2 (14:40→22:30)
[2016-10-21] MEDS: Z GUARD REMEDY 2 OZ OINT TP SCH ×6 (14:40→22:30)
[2016-10-21] MEDS: HYDROGEN PEROXIDE 480 ML BOTTLE TP SCH ×2 (14:40→22:30)
[2016-10-21] MEDS: CLOTRIMAZOLE 1% 15 GM TUBE TP SCH ×2 (14:40→22:30)
[2016-10-21] MEDS: GENTAMICIN 0.1% OINT 15 GM TUBE TP SCH ×4 (14:40→22:30)
[2016-10-21 19:34] VITALS: BP 126/79
[2016-10-21] MEDS: MULTIVIT, IRON, MIN NO. 8, FA 1 TAB GT SCH (21:55)
[2016-10-21] MEDS: PROSOURCE / PROSTAT (PYXIS) 30 ML UDC GT SCH (21:55)
[2016-10-21] MEDS: ENOXAPARIN SODIUM 40 MG/0.4 ML DISP.SYRIN SQ SCH (21:56)
[2016-10-21] MEDS: ATORVASTATIN CALCIUM 20MG TABLET GT SCH (21:56)
[2016-10-22 07:41] VITALS: BP 118/68
[2016-10-22] MEDS: ACIDOPHILUS/BULGARICUS 1 EACH TAB.CHEW GT SCH ×4 (08:22→22:47)
[2016-10-22] MEDS: ESCITALOPRAM OXALATE (10 MG) 10 MG TABLET GT SCH (08:22)
[2016-10-22] MEDS: HYDROCODONE/APAP 10/325MG 1 EA TABLET GT PRN (08:22)
[2016-10-22] MEDS: BACLOFEN (10 MG) 10 MG TABLET GT SCH ×4 (08:22→21:00)
[2016-10-22] MEDS: POLYETHYLENE GLYCOL 3350 17 GM POWD.PACK GT SCH (08:23)
[2016-10-22] MEDS: METOPROLOL TARTRATE 25 MG TABLET GT SCH ×2 (08:23→16:31)
[2016-10-22] MEDS: GABAPENTIN 300 MG CAPSULE GT SCH ×3 (08:23→16:31)
[2016-10-22] MEDS: FAMOTIDINE (20 MG) 20 MG TABLET GT SCH ×2 (08:23→21:00)
[2016-10-22] MEDS: ASCORBIC ACID 500 MG TABLET GT SCH ×2 (08:24→16:31)
[2016-10-22] MEDS: CLOPIDOGREL BISULFATE 75 MG TABLET PO SCH (08:24)
[2016-10-22] MEDS: CALCIUM CARBONATE 500 MG TAB.CHEW GT SCH ×3 (08:24→16:31)
[2016-10-22] MEDS: CALCITRIOL 0.25 MCG CAPSULE PO SCH (08:24)
[2016-10-22] MEDS: MINERAL OIL/PETROL OINT 396 GM JAR TP SCH ×3 (08:24→16:31)
[2016-10-22] MEDS: HYDROCODONE/APAP 10/325MG 1 EA TABLET GT SCH ×2 (13:00→21:00)
[2016-10-22] MEDS: GENTAMICIN 0.1% OINT 15 GM TUBE TP SCH ×4 (14:00→21:00)
[2016-10-22] MEDS: HYDROGEN PEROXIDE 480 ML BOTTLE TP SCH ×2 (14:00→21:00)
[2016-10-22] MEDS: Z GUARD REMEDY 2 OZ OINT TP SCH ×6 (14:00→21:00)
[2016-10-22] MEDS: CLOTRIMAZOLE 1% 15 GM TUBE TP SCH ×2 (14:00→21:00)
[2016-10-22] MEDS: HYDROGEL DRESSING 90 GM TUBE TP SCH ×2 (14:00→21:00)
[2016-10-22 19:40] VITALS: BP 113/63
[2016-10-22] MEDS: ENOXAPARIN SODIUM 40 MG/0.4 ML DISP.SYRIN SQ SCH (21:00)
[2016-10-22] MEDS: MULTIVIT, IRON, MIN NO. 8, FA 1 TAB GT SCH (21:00)
[2016-10-22] MEDS: PROSOURCE / PROSTAT (PYXIS) 30 ML UDC GT SCH (21:00)
[2016-10-22] MEDS: ATORVASTATIN CALCIUM 20MG TABLET GT SCH (22:47)
[2016-10-23] MEDS: HYDROCODONE/APAP 10/325MG 1 EA TABLET GT PRN (04:42)
[2016-10-23 07:41] VITALS: BP 116/82
[2016-10-23] MEDS: BACLOFEN (10 MG) 10 MG TABLET GT SCH ×4 (08:43→21:00)
[2016-10-23] MEDS: ESCITALOPRAM OXALATE (10 MG) 10 MG TABLET GT SCH (08:43)
[2016-10-23] MEDS: POLYETHYLENE GLYCOL 3350 17 GM POWD.PACK GT SCH (08:44)
[2016-10-23] MEDS: GABAPENTIN 300 MG CAPSULE GT SCH ×3 (08:44→17:00)
[2016-10-23] MEDS: METOPROLOL TARTRATE 25 MG TABLET GT SCH ×2 (08:44→17:00)
[2016-10-23] MEDS: ASCORBIC ACID 500 MG TABLET GT SCH ×2 (08:45→17:00)
[2016-10-23] MEDS: FAMOTIDINE (20 MG) 20 MG TABLET GT SCH ×2 (08:45→21:00)
[2016-10-23] MEDS: CALCIUM CARBONATE 500 MG TAB.CHEW GT SCH ×3 (08:45→17:00)
[2016-10-23] MEDS: GENTAMICIN 0.1% OINT 15 GM TUBE TP SCH ×4 (08:45→21:00)
[2016-10-23] MEDS: HYDROGEL DRESSING 90 GM TUBE TP SCH ×2 (08:45→21:00)
[2016-10-23] MEDS: CALCITRIOL 0.25 MCG CAPSULE PO SCH (08:45)
[2016-10-23] MEDS: HYDROGEN PEROXIDE 480 ML BOTTLE TP SCH ×2 (08:45→21:00)
[2016-10-23] MEDS: CLOPIDOGREL BISULFATE 75 MG TABLET PO SCH (08:45)
[2016-10-23] MEDS: MINERAL OIL/PETROL OINT 396 GM JAR TP SCH ×3 (08:45→17:00)
[2016-10-23] MEDS: HYDROCODONE/APAP 10/325MG 1 EA TABLET GT SCH ×2 (08:45→21:00)
[2016-10-23] MEDS: CLOTRIMAZOLE 1% 15 GM TUBE TP SCH ×2 (08:46→21:00)
[2016-10-23] MEDS: Z GUARD REMEDY 2 OZ OINT TP SCH ×6 (08:46→21:00)
--- NOTE | 2016-10-23 09:00 | NUR ---
Seen and examined by Dr. Ugarte, NNO given.
[2016-10-23] MEDS: ACIDOPHILUS/BULGARICUS 1 EACH TAB.CHEW GT SCH ×2 (12:02→17:00)
[2016-10-23] MEDS: MULTIVIT, IRON, MIN NO. 8, FA 1 TAB GT SCH (21:00)
[2016-10-23] MEDS: PROSOURCE / PROSTAT (PYXIS) 30 ML UDC GT SCH (21:00)
[2016-10-23] MEDS: ENOXAPARIN SODIUM 40 MG/0.4 ML DISP.SYRIN SQ SCH (21:00)
[2016-10-23] MEDS: ATORVASTATIN CALCIUM 20MG TABLET GT SCH (22:00)
[2016-10-23 22:17] VITALS: BP 120/69
[2016-10-24 08:06] VITALS: BP 113/71
[2016-10-24] MEDS: ESCITALOPRAM OXALATE (10 MG) 10 MG TABLET GT SCH (09:00)
[2016-10-24] MEDS: Z GUARD REMEDY 2 OZ OINT TP SCH ×6 (09:00→21:01)
[2016-10-24] MEDS: GABAPENTIN 300 MG CAPSULE GT SCH ×3 (09:00→17:41)
[2016-10-24] MEDS: FAMOTIDINE (20 MG) 20 MG TABLET GT SCH ×2 (09:00→20:59)
[2016-10-24] MEDS: CLOPIDOGREL BISULFATE 75 MG TABLET PO SCH (09:00)
[2016-10-24] MEDS: HYDROGEN PEROXIDE 480 ML BOTTLE TP SCH ×2 (09:00→21:00)
[2016-10-24] MEDS: MINERAL OIL/PETROL OINT 396 GM JAR TP SCH ×3 (09:00→17:41)
[2016-10-24] MEDS: CALCIUM CARBONATE 500 MG TAB.CHEW GT SCH ×3 (09:00→17:41)
[2016-10-24] MEDS: BACLOFEN (10 MG) 10 MG TABLET GT SCH ×4 (09:00→20:58)
[2016-10-24] MEDS: CLOTRIMAZOLE 1% 15 GM TUBE TP SCH ×2 (09:00→21:01)
[2016-10-24] MEDS: METOPROLOL TARTRATE 25 MG TABLET GT SCH ×2 (09:00→17:41)
[2016-10-24] MEDS: POLYETHYLENE GLYCOL 3350 17 GM POWD.PACK GT SCH (09:00)
[2016-10-24] MEDS: GENTAMICIN 0.1% OINT 15 GM TUBE TP SCH ×3 (09:00→21:00)
[2016-10-24] MEDS: HYDROGEL DRESSING 90 GM TUBE TP SCH ×2 (09:00→21:00)
[2016-10-24] MEDS: ASCORBIC ACID 500 MG TABLET GT SCH ×2 (09:00→17:41)
[2016-10-24] MEDS: CALCITRIOL 0.25 MCG CAPSULE PO SCH (09:00)
[2016-10-24] MEDS: ACIDOPHILUS/BULGARICUS 1 EACH TAB.CHEW GT SCH ×3 (09:00→17:40)
[2016-10-24] MEDS: HYDROCODONE/APAP 10/325MG 1 EA TABLET GT SCH ×2 (09:00→20:59)
[2016-10-24 19:58] VITALS: BP 118/75
[2016-10-24] MEDS: PROSOURCE / PROSTAT (PYXIS) 30 ML UDC GT SCH (20:59)
[2016-10-24] MEDS: ENOXAPARIN SODIUM 40 MG/0.4 ML DISP.SYRIN SQ SCH (21:00)
[2016-10-24] MEDS: MULTIVIT, IRON, MIN NO. 8, FA 1 TAB GT SCH (21:00)
[2016-10-24] MEDS: ATORVASTATIN CALCIUM 20MG TABLET GT SCH (21:01)
[2016-10-25 08:00] VITALS: BP 153/92
[2016-10-25] MEDS: ACIDOPHILUS/BULGARICUS 1 EACH TAB.CHEW GT SCH ×3 (09:11→17:48)
[2016-10-25] MEDS: POLYETHYLENE GLYCOL 3350 17 GM POWD.PACK GT SCH (09:11)
[2016-10-25] MEDS: ESCITALOPRAM OXALATE (10 MG) 10 MG TABLET GT SCH (09:11)
[2016-10-25] MEDS: BACLOFEN (10 MG) 10 MG TABLET GT SCH ×4 (09:11→20:44)
[2016-10-25] MEDS: METOPROLOL TARTRATE 25 MG TABLET GT SCH ×2 (09:11→17:48)
[2016-10-25] MEDS: GABAPENTIN 300 MG CAPSULE GT SCH ×3 (09:11→17:48)
[2016-10-25] MEDS: CALCIUM CARBONATE 500 MG TAB.CHEW GT SCH ×3 (09:12→17:48)
[2016-10-25] MEDS: HYDROGEL DRESSING 90 GM TUBE TP SCH ×2 (09:12→20:46)
[2016-10-25] MEDS: GENTAMICIN 0.1% OINT 15 GM TUBE TP SCH ×2 (09:12→20:46)
[2016-10-25] MEDS: HYDROGEN PEROXIDE 480 ML BOTTLE TP SCH ×2 (09:12→20:47)
[2016-10-25] MEDS: MINERAL OIL/PETROL OINT 396 GM JAR TP SCH ×3 (09:12→17:49)
[2016-10-25] MEDS: Z GUARD REMEDY 2 OZ OINT TP SCH ×6 (09:12→20:47)
[2016-10-25] MEDS: FAMOTIDINE (20 MG) 20 MG TABLET GT SCH ×2 (09:12→20:45)
[2016-10-25] MEDS: CLOTRIMAZOLE 1% 15 GM TUBE TP SCH ×2 (09:12→20:47)
[2016-10-25] MEDS: CLOPIDOGREL BISULFATE 75 MG TABLET PO SCH (09:12)
[2016-10-25] MEDS: HYDROCODONE/APAP 10/325MG 1 EA TABLET GT SCH ×2 (09:12→20:45)
[2016-10-25] MEDS: ASCORBIC ACID 500 MG TABLET GT SCH ×2 (09:12→17:49)
[2016-10-25] MEDS: CALCITRIOL 0.25 MCG CAPSULE PO SCH (09:12)
[2016-10-25 19:59] VITALS: BP 135/77
[2016-10-25] MEDS: ENOXAPARIN SODIUM 40 MG/0.4 ML DISP.SYRIN SQ SCH (20:46)
[2016-10-25] MEDS: MULTIVIT, IRON, MIN NO. 8, FA 1 TAB GT SCH (20:46)
[2016-10-25] MEDS: PROSOURCE / PROSTAT (PYXIS) 30 ML UDC GT SCH (20:46)
[2016-10-25] MEDS: ATORVASTATIN CALCIUM 20MG TABLET GT SCH (21:35)
[2016-10-26 07:56] VITALS: BP 160/89
[2016-10-26] MEDS: METOPROLOL TARTRATE 25 MG TABLET GT SCH ×2 (09:17→17:45)
[2016-10-26] MEDS: ESCITALOPRAM OXALATE (10 MG) 10 MG TABLET GT SCH (09:17)
[2016-10-26] MEDS: GABAPENTIN 300 MG CAPSULE GT SCH ×3 (09:17→17:45)
[2016-10-26] MEDS: POLYETHYLENE GLYCOL 3350 17 GM POWD.PACK GT SCH (09:17)
[2016-10-26] MEDS: ACIDOPHILUS/BULGARICUS 1 EACH TAB.CHEW GT SCH ×3 (09:17→17:44)
[2016-10-26] MEDS: BACLOFEN (10 MG) 10 MG TABLET GT SCH ×4 (09:17→21:12)
[2016-10-26] MEDS: CLOTRIMAZOLE 1% 15 GM TUBE TP SCH ×2 (09:18→21:13)
[2016-10-26] MEDS: HYDROCODONE/APAP 10/325MG 1 EA TABLET GT SCH ×2 (09:18→21:12)
[2016-10-26] MEDS: FAMOTIDINE (20 MG) 20 MG TABLET GT SCH ×2 (09:18→21:12)
[2016-10-26] MEDS: Z GUARD REMEDY 2 OZ OINT TP SCH ×6 (09:18→21:13)
[2016-10-26] MEDS: CALCITRIOL 0.25 MCG CAPSULE PO SCH (09:18)
[2016-10-26] MEDS: MINERAL OIL/PETROL OINT 396 GM JAR TP SCH ×3 (09:18→17:45)
[2016-10-26] MEDS: GENTAMICIN 0.1% OINT 15 GM TUBE TP SCH ×2 (09:18→21:13)
[2016-10-26] MEDS: CLOPIDOGREL BISULFATE 75 MG TABLET PO SCH (09:18)
[2016-10-26] MEDS: HYDROGEN PEROXIDE 480 ML BOTTLE TP SCH ×2 (09:18→21:13)
[2016-10-26] MEDS: ASCORBIC ACID 500 MG TABLET GT SCH ×2 (09:18→17:45)
[2016-10-26] MEDS: CALCIUM CARBONATE 500 MG TAB.CHEW GT SCH ×3 (09:18→17:45)
[2016-10-26] MEDS: HYDROGEL DRESSING 90 GM TUBE TP SCH ×2 (09:18→21:13)
--- NOTE | 2016-10-26 19:30 | NUR ---
Seen by no new order by this time.
[2016-10-26 19:57] VITALS: BP 130/66
[2016-10-26] MEDS: MULTIVIT, IRON, MIN NO. 8, FA 1 TAB GT SCH (21:12)
[2016-10-26] MEDS: PROSOURCE / PROSTAT (PYXIS) 30 ML UDC GT SCH (21:12)
[2016-10-26] MEDS: ATORVASTATIN CALCIUM 20MG TABLET GT SCH (21:13)
[2016-10-26] MEDS: ENOXAPARIN SODIUM 40 MG/0.4 ML DISP.SYRIN SQ SCH (21:13)
[2016-10-27] MEDS: HYDROCODONE/APAP 10/325MG 1 EA TABLET GT PRN (02:52)
[2016-10-27 07:39] VITALS: BP 153/96
[2016-10-27] MEDS: ACIDOPHILUS/BULGARICUS 1 EACH TAB.CHEW GT SCH ×3 (09:08→17:00)
[2016-10-27] MEDS: ESCITALOPRAM OXALATE (10 MG) 10 MG TABLET GT SCH (09:08)
[2016-10-27] MEDS: BACLOFEN (10 MG) 10 MG TABLET GT SCH ×4 (09:08→21:46)
[2016-10-27] MEDS: HYDROCODONE/APAP 10/325MG 1 EA TABLET GT SCH ×2 (09:09→21:47)
[2016-10-27] MEDS: CALCITRIOL 0.25 MCG CAPSULE PO SCH (09:09)
[2016-10-27] MEDS: GABAPENTIN 300 MG CAPSULE GT SCH ×3 (09:09→17:00)
[2016-10-27] MEDS: CLOPIDOGREL BISULFATE 75 MG TABLET PO SCH (09:09)
[2016-10-27] MEDS: FAMOTIDINE (20 MG) 20 MG TABLET GT SCH ×2 (09:09→21:47)
[2016-10-27] MEDS: METOPROLOL TARTRATE 25 MG TABLET GT SCH ×2 (09:09→17:00)
[2016-10-27] MEDS: POLYETHYLENE GLYCOL 3350 17 GM POWD.PACK GT SCH (09:09)
[2016-10-27] MEDS: CALCIUM CARBONATE 500 MG TAB.CHEW GT SCH ×3 (09:09→17:00)
[2016-10-27] MEDS: ASCORBIC ACID 500 MG TABLET GT SCH ×2 (09:09→17:00)
[2016-10-27] MEDS: HYDROGEN PEROXIDE 480 ML BOTTLE TP SCH ×2 (09:40→21:48)
[2016-10-27] MEDS: Z GUARD REMEDY 2 OZ OINT TP SCH ×6 (09:40→21:48)
[2016-10-27] MEDS: CLOTRIMAZOLE 1% 15 GM TUBE TP SCH ×3 (09:40→21:48)
[2016-10-27] MEDS: HYDROGEL DRESSING 90 GM TUBE TP SCH ×2 (09:40→21:47)
[2016-10-27] MEDS: MINERAL OIL/PETROL OINT 396 GM JAR TP SCH ×3 (09:40→17:00)
[2016-10-27] MEDS: GENTAMICIN 0.1% OINT 15 GM TUBE TP SCH ×3 (09:40→21:48)
[2016-10-27 19:57] VITALS: BP 128/69
[2016-10-27] MEDS: MULTIVIT, IRON, MIN NO. 8, FA 1 TAB GT SCH (21:47)
[2016-10-27] MEDS: ENOXAPARIN SODIUM 40 MG/0.4 ML DISP.SYRIN SQ SCH (21:47)
[2016-10-27] MEDS: PROSOURCE / PROSTAT (PYXIS) 30 ML UDC GT SCH (21:47)
[2016-10-27] MEDS: ATORVASTATIN CALCIUM 20MG TABLET GT SCH (21:48)
[2016-10-28] MEDS: HYDROCODONE/APAP 10/325MG 1 EA TABLET GT PRN (04:55)
[2016-10-28 07:46] VITALS: BP 145/84
[2016-10-28 07:48] VITALS: BP 145/84
[2016-10-28] MEDS: ACIDOPHILUS/BULGARICUS 1 EACH TAB.CHEW GT SCH ×3 (09:06→17:59)
[2016-10-28] MEDS: HYDROCODONE/APAP 10/325MG 1 EA TABLET GT SCH ×2 (09:07→21:31)
[2016-10-28] MEDS: FAMOTIDINE (20 MG) 20 MG TABLET GT SCH ×2 (09:07→21:31)
[2016-10-28] MEDS: ESCITALOPRAM OXALATE (10 MG) 10 MG TABLET GT SCH (09:07)
[2016-10-28] MEDS: ASCORBIC ACID 500 MG TABLET GT SCH ×2 (09:07→17:00)
[2016-10-28] MEDS: CLOPIDOGREL BISULFATE 75 MG TABLET PO SCH (09:07)
[2016-10-28] MEDS: POLYETHYLENE GLYCOL 3350 17 GM POWD.PACK GT SCH (09:07)
[2016-10-28] MEDS: METOPROLOL TARTRATE 25 MG TABLET GT SCH ×2 (09:07→18:00)
[2016-10-28] MEDS: GABAPENTIN 300 MG CAPSULE GT SCH ×3 (09:07→17:00)
[2016-10-28] MEDS: BACLOFEN (10 MG) 10 MG TABLET GT SCH ×4 (09:07→21:29)
[2016-10-28] MEDS: CALCIUM CARBONATE 500 MG TAB.CHEW GT SCH ×3 (09:07→17:00)
[2016-10-28] MEDS: CALCITRIOL 0.25 MCG CAPSULE PO SCH (09:08)
[2016-10-28] MEDS: GENTAMICIN 0.1% OINT 15 GM TUBE TP SCH ×4 (09:40→21:31)
[2016-10-28] MEDS: HYDROGEN PEROXIDE 480 ML BOTTLE TP SCH ×2 (09:40→21:31)
[2016-10-28] MEDS: CLOTRIMAZOLE 1% 15 GM TUBE TP SCH ×4 (09:40→21:32)
[2016-10-28] MEDS: HYDROGEL DRESSING 90 GM TUBE TP SCH ×2 (09:40→21:31)
[2016-10-28] MEDS: Z GUARD REMEDY 2 OZ OINT TP SCH ×6 (09:40→21:32)
[2016-10-28] MEDS: MINERAL OIL/PETROL OINT 396 GM JAR TP SCH ×3 (09:40→17:00)
[2016-10-28 19:43] VITALS: BP 110/69
[2016-10-28] MEDS: ENOXAPARIN SODIUM 40 MG/0.4 ML DISP.SYRIN SQ SCH (21:31)
[2016-10-28] MEDS: PROSOURCE / PROSTAT (PYXIS) 30 ML UDC GT SCH (21:31)
[2016-10-28] MEDS: MULTIVIT, IRON, MIN NO. 8, FA 1 TAB GT SCH (21:31)
[2016-10-28] MEDS: ATORVASTATIN CALCIUM 20MG TABLET GT SCH (21:32)
[2016-10-29] MEDS: HYDROCODONE/APAP 10/325MG 1 EA TABLET GT PRN (06:24)
[2016-10-29 08:07] VITALS: BP 138/56
[2016-10-29] MEDS: FAMOTIDINE (20 MG) 20 MG TABLET GT SCH ×2 (08:58→21:56)
[2016-10-29] MEDS: BACLOFEN (10 MG) 10 MG TABLET GT SCH ×4 (08:58→21:56)
[2016-10-29] MEDS: ESCITALOPRAM OXALATE (10 MG) 10 MG TABLET GT SCH (08:58)
[2016-10-29] MEDS: POLYETHYLENE GLYCOL 3350 17 GM POWD.PACK GT SCH (08:58)
[2016-10-29] MEDS: CALCITRIOL 0.25 MCG CAPSULE PO SCH (08:58)
[2016-10-29] MEDS: ACIDOPHILUS/BULGARICUS 1 EACH TAB.CHEW GT SCH ×3 (08:58→17:00)
[2016-10-29] MEDS: METOPROLOL TARTRATE 25 MG TABLET GT SCH ×2 (08:58→17:00)
[2016-10-29] MEDS: CALCIUM CARBONATE 500 MG TAB.CHEW GT SCH ×3 (08:58→17:00)
[2016-10-29] MEDS: CLOPIDOGREL BISULFATE 75 MG TABLET PO SCH (08:58)
[2016-10-29] MEDS: ASCORBIC ACID 500 MG TABLET GT SCH ×2 (08:58→17:00)
[2016-10-29] MEDS: GABAPENTIN 300 MG CAPSULE GT SCH ×3 (08:58→17:00)
[2016-10-29] MEDS: MINERAL OIL/PETROL OINT 396 GM JAR TP SCH ×3 (09:00→17:00)
[2016-10-29] MEDS: HYDROCODONE/APAP 10/325MG 1 EA TABLET GT SCH ×2 (12:22→21:00)
[2016-10-29] MEDS: CLOTRIMAZOLE 1% 15 GM TUBE TP SCH ×4 (13:00→21:57)
[2016-10-29] MEDS: GENTAMICIN 0.1% OINT 15 GM TUBE TP SCH ×4 (13:00→21:57)
[2016-10-29] MEDS: HYDROGEN PEROXIDE 480 ML BOTTLE TP SCH ×2 (13:00→21:57)
[2016-10-29] MEDS: Z GUARD REMEDY 2 OZ OINT TP SCH ×6 (13:00→21:57)
[2016-10-29] MEDS: HYDROGEL DRESSING 90 GM TUBE TP SCH ×2 (13:00→21:57)
[2016-10-29 19:50] VITALS: BP 103/59
[2016-10-29] MEDS: PROSOURCE / PROSTAT (PYXIS) 30 ML UDC GT SCH (21:56)
[2016-10-29] MEDS: MULTIVIT, IRON, MIN NO. 8, FA 1 TAB GT SCH (21:56)
[2016-10-29] MEDS: ENOXAPARIN SODIUM 40 MG/0.4 ML DISP.SYRIN SQ SCH (21:56)
[2016-10-29] MEDS: ATORVASTATIN CALCIUM 20MG TABLET GT SCH (21:57)
[2016-10-30 07:36] VITALS: BP 125/80
[2016-10-30] MEDS: POLYETHYLENE GLYCOL 3350 17 GM POWD.PACK GT SCH (08:35)
[2016-10-30] MEDS: GABAPENTIN 300 MG CAPSULE GT SCH ×3 (08:35→17:29)
[2016-10-30] MEDS: ESCITALOPRAM OXALATE (10 MG) 10 MG TABLET GT SCH (08:35)
[2016-10-30] MEDS: METOPROLOL TARTRATE 25 MG TABLET GT SCH ×2 (08:35→17:29)
[2016-10-30] MEDS: ACIDOPHILUS/BULGARICUS 1 EACH TAB.CHEW GT SCH ×3 (08:35→17:28)
[2016-10-30] MEDS: BACLOFEN (10 MG) 10 MG TABLET GT SCH ×4 (08:35→21:21)
[2016-10-30] MEDS: ASCORBIC ACID 500 MG TABLET GT SCH ×2 (08:36→17:29)
[2016-10-30] MEDS: HYDROGEL DRESSING 90 GM TUBE TP SCH ×2 (08:36→21:21)
[2016-10-30] MEDS: CLOPIDOGREL BISULFATE 75 MG TABLET PO SCH (08:36)
[2016-10-30] MEDS: HYDROGEN PEROXIDE 480 ML BOTTLE TP SCH ×2 (08:36→21:21)
[2016-10-30] MEDS: HYDROCODONE/APAP 10/325MG 1 EA TABLET GT SCH ×2 (08:36→21:00)
[2016-10-30] MEDS: CALCIUM CARBONATE 500 MG TAB.CHEW GT SCH ×3 (08:36→17:29)
[2016-10-30] MEDS: GENTAMICIN 0.1% OINT 15 GM TUBE TP SCH ×3 (08:36→21:21)
[2016-10-30] MEDS: FAMOTIDINE (20 MG) 20 MG TABLET GT SCH ×2 (08:36→21:21)
[2016-10-30] MEDS: CALCITRIOL 0.25 MCG CAPSULE PO SCH (08:36)
[2016-10-30] MEDS: MINERAL OIL/PETROL OINT 396 GM JAR TP SCH ×3 (08:36→17:29)
[2016-10-30] MEDS: Z GUARD REMEDY 2 OZ OINT TP SCH ×5 (08:37→21:22)
[2016-10-30] MEDS: CLOTRIMAZOLE 1% 15 GM TUBE TP SCH ×4 (08:37→21:21)
[2016-10-30 19:25] VITALS: BP 110/74
[2016-10-30] MEDS: PROSOURCE / PROSTAT (PYXIS) 30 ML UDC GT SCH (21:21)
[2016-10-30] MEDS: MULTIVIT, IRON, MIN NO. 8, FA 1 TAB GT SCH (21:21)
[2016-10-30] MEDS: ENOXAPARIN SODIUM 40 MG/0.4 ML DISP.SYRIN SQ SCH (21:21)
[2016-10-30] MEDS: ATORVASTATIN CALCIUM 20MG TABLET GT SCH (21:22)
[2016-10-31] MEDS: FAMOTIDINE (20 MG) 20 MG TABLET GT SCH ×2 (09:18→21:05)
[2016-10-31] MEDS: BACLOFEN (10 MG) 10 MG TABLET GT SCH ×4 (09:18→21:04)
[2016-10-31] MEDS: HYDROCODONE/APAP 10/325MG 1 EA TABLET GT SCH ×2 (09:18→21:05)
[2016-10-31] MEDS: ESCITALOPRAM OXALATE (10 MG) 10 MG TABLET GT SCH (09:20)
[2016-10-31] MEDS: POLYETHYLENE GLYCOL 3350 17 GM POWD.PACK GT SCH (09:20)
[2016-10-31] MEDS: METOPROLOL TARTRATE 25 MG TABLET GT SCH ×2 (09:20→17:33)
[2016-10-31] MEDS: GABAPENTIN 300 MG CAPSULE GT SCH ×3 (09:20→17:33)
[2016-10-31] MEDS: CALCITRIOL 0.25 MCG CAPSULE PO SCH (09:21)
[2016-10-31] MEDS: ASCORBIC ACID 500 MG TABLET GT SCH ×2 (09:21→17:33)
[2016-10-31] MEDS: CALCIUM CARBONATE 500 MG TAB.CHEW GT SCH ×3 (09:21→17:33)
[2016-10-31] MEDS: CLOPIDOGREL BISULFATE 75 MG TABLET PO SCH (09:21)
[2016-10-31] MEDS: CLOTRIMAZOLE 1% 15 GM TUBE TP SCH ×4 (09:22→21:04)
[2016-10-31] MEDS: Z GUARD REMEDY 2 OZ OINT TP SCH ×4 (09:22→21:04)
[2016-10-31] MEDS: HYDROGEL DRESSING 90 GM TUBE TP SCH ×2 (09:22→21:03)
[2016-10-31] MEDS: HYDROGEN PEROXIDE 480 ML BOTTLE TP SCH ×2 (09:22→21:04)
[2016-10-31] MEDS: GENTAMICIN 0.1% OINT 15 GM TUBE TP SCH ×2 (09:22→21:04)
[2016-10-31] MEDS: MINERAL OIL/PETROL OINT 396 GM JAR TP SCH ×3 (09:22→17:34)
[2016-10-31] MEDS: ACIDOPHILUS/BULGARICUS 1 EACH TAB.CHEW GT SCH ×3 (09:23→17:33)
--- NOTE | 2016-10-31 10:10 | NUR ---
Social Service section of [facility] (2nd quarter) completed. Resident is alert and was able to answer all questions asked. Resident understands need for placement at this time. Yvzfbk-ew-gsn Vilma remains his contact and she is involved in his care. Resident able to make his needs known.
[2016-10-31 19:53] VITALS: BP 118/78
[2016-10-31] MEDS: ENOXAPARIN SODIUM 40 MG/0.4 ML DISP.SYRIN SQ SCH (21:03)
[2016-10-31] MEDS: ATORVASTATIN CALCIUM 20MG TABLET GT SCH (21:04)
[2016-10-31] MEDS: MULTIVIT, IRON, MIN NO. 8, FA 1 TAB GT SCH (21:05)
[2016-10-31] MEDS: PROSOURCE / PROSTAT (PYXIS) 30 ML UDC GT SCH (21:05)
[2016-11-01] MEDS: HYDROCODONE/APAP 10/325MG 1 EA TABLET GT PRN (06:10)
[2016-11-01 08:00] VITALS: BP 157/92
--- NOTE | 2016-11-01 08:20 | NUR ---
Pt on contact isolation for CRE urine. Education has been provided to staff and pt's family.
[2016-11-01] MEDS: ACIDOPHILUS/BULGARICUS 1 EACH TAB.CHEW GT SCH ×3 (09:42→17:59)
[2016-11-01] MEDS: ESCITALOPRAM OXALATE (10 MG) 10 MG TABLET GT SCH (09:42)
[2016-11-01] MEDS: BACLOFEN (10 MG) 10 MG TABLET GT SCH ×4 (09:42→20:27)
[2016-11-01] MEDS: CLOPIDOGREL BISULFATE 75 MG TABLET PO SCH (09:43)
[2016-11-01] MEDS: HYDROGEL DRESSING 90 GM TUBE TP SCH ×3 (09:43→20:29)
[2016-11-01] MEDS: POLYETHYLENE GLYCOL 3350 17 GM POWD.PACK GT SCH (09:43)
[2016-11-01] MEDS: MINERAL OIL/PETROL OINT 396 GM JAR TP SCH ×3 (09:43→17:59)
[2016-11-01] MEDS: METOPROLOL TARTRATE 25 MG TABLET GT SCH ×2 (09:43→17:59)
[2016-11-01] MEDS: ASCORBIC ACID 500 MG TABLET GT SCH ×2 (09:43→17:59)
[2016-11-01] MEDS: GABAPENTIN 300 MG CAPSULE GT SCH ×3 (09:43→17:59)
[2016-11-01] MEDS: CLOTRIMAZOLE 1% 15 GM TUBE TP SCH ×4 (09:43→20:29)
[2016-11-01] MEDS: CALCIUM CARBONATE 500 MG TAB.CHEW GT SCH ×3 (09:43→17:59)
[2016-11-01] MEDS: FAMOTIDINE (20 MG) 20 MG TABLET GT SCH ×2 (09:43→20:28)
[2016-11-01] MEDS: GENTAMICIN 0.1% OINT 15 GM TUBE TP SCH ×3 (09:43→20:29)
[2016-11-01] MEDS: CALCITRIOL 0.25 MCG CAPSULE PO SCH (09:43)
[2016-11-01] MEDS: HYDROGEN PEROXIDE 480 ML BOTTLE TP SCH ×2 (09:43→20:29)
[2016-11-01] MEDS: Z GUARD REMEDY 2 OZ OINT TP SCH ×4 (09:44→20:30)
[2016-11-01] MEDS: HYDROCODONE/APAP 10/325MG 1 EA TABLET GT SCH ×2 (12:30→20:28)
[2016-11-01] MEDS ORDERED: HYDROGEL DRESSING 90 GM TUBE TP PRN (18:00)
[2016-11-01] MEDS ORDERED: GENTAMICIN 0.1% OINT 15 GM TUBE TP PRN (18:00)
[2016-11-01] MEDS ORDERED: Z GUARD REMEDY 4 OZ OINT TP PRN (18:00)
--- NOTE | 2016-11-01 19:18 | NUR ---
LATE ENTRY FOR 10/31/16 RIGHT BUTTOCK WOUND TREATMENT DONE PER MD ORDER. NO S/S OF ANY COMPLICATIONS NOTED.
[2016-11-01 19:44] VITALS: BP 109/75
[2016-11-01] MEDS: PROSOURCE / PROSTAT (PYXIS) 30 ML UDC GT SCH (20:28)
[2016-11-01] MEDS: MULTIVIT, IRON, MIN NO. 8, FA 1 TAB GT SCH (20:28)
[2016-11-01] MEDS: ATORVASTATIN CALCIUM 20MG TABLET GT SCH (20:30)
[2016-11-01] MEDS: Z GUARD REMEDY 4 OZ OINT TP SCH (20:30)
[2016-11-01] MEDS: ENOXAPARIN SODIUM 40 MG/0.4 ML DISP.SYRIN SQ SCH (20:38)
[2016-11-02] MEDS: HYDROCODONE/APAP 10/325MG 1 EA TABLET GT PRN (02:05)
--- NOTE | 2016-11-02 06:27 | NUR ---
Midline Dc'd . No signs of bleeding noted, precedure well tolerated
[2016-11-02 08:04] VITALS: BP 119/79
[2016-11-02] MEDS: ESCITALOPRAM OXALATE (10 MG) 10 MG TABLET GT SCH (08:33)
[2016-11-02] MEDS: ACIDOPHILUS/BULGARICUS 1 EACH TAB.CHEW GT SCH ×3 (08:33→17:59)
[2016-11-02] MEDS: BACLOFEN (10 MG) 10 MG TABLET GT SCH ×4 (08:53→21:49)
[2016-11-02] MEDS: CALCIUM CARBONATE 500 MG TAB.CHEW GT SCH ×3 (08:54→17:00)
[2016-11-02] MEDS: GABAPENTIN 300 MG CAPSULE GT SCH ×3 (08:54→17:00)
[2016-11-02] MEDS: CALCITRIOL 0.25 MCG CAPSULE PO SCH (08:54)
[2016-11-02] MEDS: MINERAL OIL/PETROL OINT 396 GM JAR TP SCH ×3 (08:54→17:00)
[2016-11-02] MEDS: CLOPIDOGREL BISULFATE 75 MG TABLET PO SCH (08:54)
[2016-11-02] MEDS: FAMOTIDINE (20 MG) 20 MG TABLET GT SCH ×2 (08:54→21:49)
[2016-11-02] MEDS: ASCORBIC ACID 500 MG TABLET GT SCH ×2 (08:54→17:00)
[2016-11-02] MEDS: POLYETHYLENE GLYCOL 3350 17 GM POWD.PACK GT SCH (08:54)
[2016-11-02] MEDS: METOPROLOL TARTRATE 25 MG TABLET GT SCH ×2 (08:54→18:00)
[2016-11-02] MEDS: Z GUARD REMEDY 2 OZ OINT TP SCH ×4 (09:00→21:51)
[2016-11-02] MEDS: HYDROCODONE/APAP 10/325MG 1 EA TABLET GT SCH ×2 (13:00→21:49)
[2016-11-02] MEDS: HYDROGEN PEROXIDE 480 ML BOTTLE TP SCH ×2 (14:00→21:50)
[2016-11-02] MEDS: CLOTRIMAZOLE 1% 15 GM TUBE TP SCH ×3 (14:00→21:50)
[2016-11-02] MEDS: GENTAMICIN 0.1% OINT 15 GM TUBE TP SCH ×4 (14:00→21:50)
[2016-11-02] MEDS: HYDROGEL DRESSING 90 GM TUBE TP SCH ×4 (14:00→21:50)
[2016-11-02] MEDS: Z GUARD REMEDY 4 OZ OINT TP SCH ×2 (14:00→21:51)
[2016-11-02 20:12] VITALS: BP 101/65
[2016-11-02] MEDS ORDERED: NEOMY SULF/BACITRAC ZN/POLY 15 GM TUBE TP SCH (21:00)
[2016-11-02] MEDS: PROSOURCE / PROSTAT (PYXIS) 30 ML UDC GT SCH (21:49)
[2016-11-02] MEDS: MULTIVIT, IRON, MIN NO. 8, FA 1 TAB GT SCH (21:49)
[2016-11-02] MEDS: ENOXAPARIN SODIUM 40 MG/0.4 ML DISP.SYRIN SQ SCH (21:50)
[2016-11-02] MEDS: ATORVASTATIN CALCIUM 20MG TABLET GT SCH (21:51)
[2016-11-03 07:30] VITALS: BP 121/70
[2016-11-03] MEDS: ACIDOPHILUS/BULGARICUS 1 EACH TAB.CHEW GT SCH ×3 (09:01→17:40)
[2016-11-03] MEDS: METOPROLOL TARTRATE 25 MG TABLET GT SCH ×2 (09:01→17:40)
[2016-11-03] MEDS: GABAPENTIN 300 MG CAPSULE GT SCH ×3 (09:01→17:40)
[2016-11-03] MEDS: POLYETHYLENE GLYCOL 3350 17 GM POWD.PACK GT SCH (09:01)
[2016-11-03] MEDS: BACLOFEN (10 MG) 10 MG TABLET GT SCH ×4 (09:01→21:20)
[2016-11-03] MEDS: ESCITALOPRAM OXALATE (10 MG) 10 MG TABLET GT SCH (09:01)
[2016-11-03] MEDS: ASCORBIC ACID 500 MG TABLET GT SCH ×2 (09:02→17:40)
[2016-11-03] MEDS: CALCITRIOL 0.25 MCG CAPSULE PO SCH (09:02)
[2016-11-03] MEDS: FAMOTIDINE (20 MG) 20 MG TABLET GT SCH ×2 (09:02→21:20)
[2016-11-03] MEDS: CALCIUM CARBONATE 500 MG TAB.CHEW GT SCH ×3 (09:02→17:40)
[2016-11-03] MEDS: HYDROCODONE/APAP 10/325MG 1 EA TABLET GT SCH (09:02)
[2016-11-03] MEDS: CLOPIDOGREL BISULFATE 75 MG TABLET PO SCH (09:02)
--- NOTE | 2016-11-03 09:22 | NUR ---
Pt was seen by Dr. Walker. Showed him pt's right jack open skin. Notified him that pt had temp 99-100.4 F yesterday, pt has no PRN pain medication for moderate pain. Dr. Walker ordered to DC [place] 10/325 mg GT q 4 hours for severe pain, give [place] 5/325 mg GT q 4 hours PRN for moderate pain, Percocet 10/325 mg GT q 6 hours PRN for severe pain. Addendum: 11/03/16 at 0945 by WINIFRED GARCÍA RN Pt still with [place] 10/325 mg 2 tabs GT BID 30 minutes prior to wound treatment.
[2016-11-03] MEDS: HYDROGEL DRESSING 90 GM TUBE TP SCH ×4 (09:42→21:20)
[2016-11-03] MEDS: MINERAL OIL/PETROL OINT 396 GM JAR TP SCH ×3 (09:42→17:41)
[2016-11-03] MEDS: GENTAMICIN 0.1% OINT 15 GM TUBE TP SCH ×4 (09:43→21:20)
[2016-11-03] MEDS: Z GUARD REMEDY 2 OZ OINT TP SCH ×4 (09:44→21:20)
[2016-11-03] MEDS: Z GUARD REMEDY 4 OZ OINT TP SCH ×2 (09:44→21:21)
[2016-11-03] MEDS: HYDROGEN PEROXIDE 480 ML BOTTLE TP SCH ×2 (09:44→21:20)
[2016-11-03] MEDS: CLOTRIMAZOLE 1% 15 GM TUBE TP SCH ×2 (09:44→21:20)
[2016-11-03 19:54] VITALS: BP 112/69
[2016-11-03] MEDS: ENOXAPARIN SODIUM 40 MG/0.4 ML DISP.SYRIN SQ SCH (21:20)
[2016-11-03] MEDS: PROSOURCE / PROSTAT (PYXIS) 30 ML UDC GT SCH (21:20)
[2016-11-03] MEDS: MULTIVIT, IRON, MIN NO. 8, FA 1 TAB GT SCH (21:20)
[2016-11-03] MEDS: MAGNESIUM HYDROXIDE 30 ML UDC GT PRN (21:21)
[2016-11-03] MEDS: ATORVASTATIN CALCIUM 20MG TABLET GT SCH (21:21)
[2016-11-04] MEDS: METOPROLOL TARTRATE 25 MG TABLET GT SCH ×2 (08:20→17:00)
[2016-11-04] MEDS: FAMOTIDINE (20 MG) 20 MG TABLET GT SCH ×2 (08:20→20:37)
[2016-11-04] MEDS: ESCITALOPRAM OXALATE (10 MG) 10 MG TABLET GT SCH (08:20)
[2016-11-04] MEDS: POLYETHYLENE GLYCOL 3350 17 GM POWD.PACK GT SCH (08:20)
[2016-11-04] MEDS: ACIDOPHILUS/BULGARICUS 1 EACH TAB.CHEW GT SCH ×3 (08:20→17:00)
[2016-11-04] MEDS: GABAPENTIN 300 MG CAPSULE GT SCH ×3 (08:20→17:00)
[2016-11-04] MEDS: BACLOFEN (10 MG) 10 MG TABLET GT SCH ×4 (08:20→20:37)
[2016-11-04] MEDS: CLOPIDOGREL BISULFATE 75 MG TABLET PO SCH (08:21)
[2016-11-04] MEDS: ASCORBIC ACID 500 MG TABLET GT SCH ×2 (08:21→17:00)
[2016-11-04] MEDS: CALCITRIOL 0.25 MCG CAPSULE PO SCH (08:21)
[2016-11-04] MEDS: CALCIUM CARBONATE 500 MG TAB.CHEW GT SCH ×3 (08:21→17:00)
[2016-11-04 08:33] VITALS: BP 130/78
[2016-11-04] MEDS: HYDROCODONE/APAP 10/325MG 1 EA TABLET GT SCH ×2 (09:15→20:39)
[2016-11-04] MEDS: MINERAL OIL/PETROL OINT 396 GM JAR TP SCH ×3 (09:54→17:00)
[2016-11-04] MEDS: HYDROGEL DRESSING 90 GM TUBE TP SCH ×4 (09:54→20:38)
[2016-11-04] MEDS: GENTAMICIN 0.1% OINT 15 GM TUBE TP SCH ×4 (09:54→20:38)
[2016-11-04] MEDS: Z GUARD REMEDY 4 OZ OINT TP SCH ×2 (09:55→20:38)
[2016-11-04] MEDS: HYDROGEN PEROXIDE 480 ML BOTTLE TP SCH ×2 (09:55→20:38)
[2016-11-04] MEDS: Z GUARD REMEDY 2 OZ OINT TP SCH ×4 (09:55→20:38)
[2016-11-04] MEDS: CLOTRIMAZOLE 1% 15 GM TUBE TP SCH ×2 (09:55→20:38)
--- NOTE | 2016-11-04 10:49 | NUR ---
WOUND CARE CONSULT: PT SEEN FOR RT SKY OPEN SKIN. OPEN AREA OF ABRASION NOTED WITH SURROUNDING BRUISE. OPEN AREA MEASURED 1.5CM X 0.8CM X 0.1CM WITH SCANT PINK DRAINAGE, NO ODOR. RECOMMEND ANTIBIOTIC OINTMENT AND MEPILEX. DISCUSSED WITH NURSING STAFF. WILL SEE PRN. Addendum: 11/04/16 at 1054 by FABIANA CARLOS WNDNU MD IN AGREEMENT WITH PLAN OF CARE.
--- NOTE | 2016-11-04 13:33 | NUR ---
IDT meeting held, reviewed medications, new orders, wound treatments and labs. Family c/o Vilma attended the meeting. Reviewed current isolation and culture result with the team. Wound consult done in the R jack, new treatment ordered. Wood Heel Flap Rubber recommended to reweigh patient on Monday due to 8.6 lbs. weight loss. (Sep, 2016 189.6lbs - 2016 181lbs.) Endorsed.
--- NOTE | 2016-11-04 18:49 | NUR ---
Seen and examined by Peggy Hoffman, STENO TYPIST, NNO given
[2016-11-04 20:00] VITALS: BP 132/61
[2016-11-04] MEDS: PROSOURCE / PROSTAT (PYXIS) 30 ML UDC GT SCH (20:37)
[2016-11-04] MEDS: MULTIVIT, IRON, MIN NO. 8, FA 1 TAB GT SCH (20:37)
[2016-11-04] MEDS: ENOXAPARIN SODIUM 40 MG/0.4 ML DISP.SYRIN SQ SCH (20:38)
[2016-11-04] MEDS: ATORVASTATIN CALCIUM 20MG TABLET GT SCH (21:08)
[2016-11-04] MEDS: MAGNESIUM HYDROXIDE 30 ML UDC GT PRN (21:09)
[2016-11-04] MEDS: METHOCARBAMOL (750MG) 750 MG TABLET GT PRN (21:09)
[2016-11-05 07:36] VITALS: BP 135/76
[2016-11-05] MEDS: HYDROCODONE/APAP 10/325MG 1 EA TABLET GT SCH ×2 (08:44→21:08)
[2016-11-05] MEDS: ACIDOPHILUS/BULGARICUS 1 EACH TAB.CHEW GT SCH ×3 (08:45→16:46)
[2016-11-05] MEDS: FAMOTIDINE (20 MG) 20 MG TABLET GT SCH ×2 (08:45→21:08)
[2016-11-05] MEDS: METOPROLOL TARTRATE 25 MG TABLET GT SCH ×2 (08:45→16:47)
[2016-11-05] MEDS: POLYETHYLENE GLYCOL 3350 17 GM POWD.PACK GT SCH (08:45)
[2016-11-05] MEDS: BACLOFEN (10 MG) 10 MG TABLET GT SCH ×4 (08:45→21:07)
[2016-11-05] MEDS: CLOPIDOGREL BISULFATE 75 MG TABLET PO SCH (08:45)
[2016-11-05] MEDS: ASCORBIC ACID 500 MG TABLET GT SCH ×2 (08:45→16:47)
[2016-11-05] MEDS: CALCIUM CARBONATE 500 MG TAB.CHEW GT SCH ×3 (08:45→16:47)
[2016-11-05] MEDS: ESCITALOPRAM OXALATE (10 MG) 10 MG TABLET GT SCH (08:45)
[2016-11-05] MEDS: GABAPENTIN 300 MG CAPSULE GT SCH ×3 (08:45→16:47)
[2016-11-05] MEDS: CALCITRIOL 0.25 MCG CAPSULE PO SCH (08:45)
[2016-11-05] MEDS: HYDROGEL DRESSING 90 GM TUBE TP SCH ×4 (09:29→21:08)
[2016-11-05] MEDS: GENTAMICIN 0.1% OINT 15 GM TUBE TP SCH ×4 (09:29→21:08)
[2016-11-05] MEDS: MINERAL OIL/PETROL OINT 396 GM JAR TP SCH ×3 (09:29→16:47)
[2016-11-05] MEDS: CLOTRIMAZOLE 1% 15 GM TUBE TP SCH ×2 (09:30→21:08)
[2016-11-05] MEDS: Z GUARD REMEDY 4 OZ OINT TP SCH ×2 (09:30→21:08)
[2016-11-05] MEDS: HYDROGEN PEROXIDE 480 ML BOTTLE TP SCH ×2 (09:30→21:08)
[2016-11-05] MEDS: NEOMY SULF/BACITRAC ZN/POLY 15 GM TUBE TP SCH (09:30)
[2016-11-05] MEDS: Z GUARD REMEDY 2 OZ OINT TP SCH ×4 (09:30→21:08)
[2016-11-05 19:46] VITALS: BP 103/64
[2016-11-05] MEDS: ENOXAPARIN SODIUM 40 MG/0.4 ML DISP.SYRIN SQ SCH (21:08)
[2016-11-05] MEDS: MULTIVIT, IRON, MIN NO. 8, FA 1 TAB GT SCH (21:08)
[2016-11-05] MEDS: ATORVASTATIN CALCIUM 20MG TABLET GT SCH (21:08)
[2016-11-05] MEDS: PROSOURCE / PROSTAT (PYXIS) 30 ML UDC GT SCH (21:08)
[2016-11-05] MEDS: METHOCARBAMOL (750MG) 750 MG TABLET GT PRN (21:09)
[2016-11-05] MEDS: MAGNESIUM HYDROXIDE 30 ML UDC GT PRN (21:09)
[2016-11-06 07:47] VITALS: BP 101/62
[2016-11-06] MEDS: ASCORBIC ACID 500 MG TABLET GT SCH ×2 (09:00→16:52)
[2016-11-06] MEDS: HYDROGEN PEROXIDE 480 ML BOTTLE TP SCH ×2 (09:00→20:36)
[2016-11-06] MEDS: CLOTRIMAZOLE 1% 15 GM TUBE TP SCH ×2 (09:00→20:36)
[2016-11-06] MEDS: HYDROGEL DRESSING 90 GM TUBE TP SCH ×4 (09:00→20:36)
[2016-11-06] MEDS: HYDROCODONE/APAP 10/325MG 1 EA TABLET GT SCH ×2 (09:00→20:33)
[2016-11-06] MEDS: ESCITALOPRAM OXALATE (10 MG) 10 MG TABLET GT SCH (09:00)
[2016-11-06] MEDS: METOPROLOL TARTRATE 25 MG TABLET GT SCH ×2 (09:00→16:52)
[2016-11-06] MEDS: FAMOTIDINE (20 MG) 20 MG TABLET GT SCH ×2 (09:00→20:33)
[2016-11-06] MEDS: POLYETHYLENE GLYCOL 3350 17 GM POWD.PACK GT SCH (09:00)
[2016-11-06] MEDS: CALCITRIOL 0.25 MCG CAPSULE PO SCH (09:00)
[2016-11-06] MEDS: MINERAL OIL/PETROL OINT 396 GM JAR TP SCH ×3 (09:00→16:52)
[2016-11-06] MEDS: ACIDOPHILUS/BULGARICUS 1 EACH TAB.CHEW GT SCH ×3 (09:00→16:52)
[2016-11-06] MEDS: GABAPENTIN 300 MG CAPSULE GT SCH ×3 (09:00→16:52)
[2016-11-06] MEDS: GENTAMICIN 0.1% OINT 15 GM TUBE TP SCH ×4 (09:00→20:36)
[2016-11-06] MEDS: CLOPIDOGREL BISULFATE 75 MG TABLET PO SCH (09:00)
[2016-11-06] MEDS: Z GUARD REMEDY 4 OZ OINT TP SCH ×2 (09:00→20:36)
[2016-11-06] MEDS: BACLOFEN (10 MG) 10 MG TABLET GT SCH ×4 (09:00→20:33)
[2016-11-06] MEDS: CALCIUM CARBONATE 500 MG TAB.CHEW GT SCH ×3 (09:00→16:52)
[2016-11-06] MEDS: NEOMY SULF/BACITRAC ZN/POLY 15 GM TUBE TP SCH (09:00)
[2016-11-06] MEDS: Z GUARD REMEDY 2 OZ OINT TP SCH ×4 (09:00→20:36)
[2016-11-06 19:46] VITALS: BP 122/61
[2016-11-06] MEDS: PROSOURCE / PROSTAT (PYXIS) 30 ML UDC GT SCH (20:33)
[2016-11-06] MEDS: MULTIVIT, IRON, MIN NO. 8, FA 1 TAB GT SCH (20:35)
[2016-11-06] MEDS: ENOXAPARIN SODIUM 40 MG/0.4 ML DISP.SYRIN SQ SCH (20:36)
[2016-11-06] MEDS: ATORVASTATIN CALCIUM 20MG TABLET GT SCH (21:24)
[2016-11-07 08:19] VITALS: BP 127/82
[2016-11-07] MEDS: FAMOTIDINE (20 MG) 20 MG TABLET GT SCH ×2 (09:59→20:23)
[2016-11-07] MEDS: POLYETHYLENE GLYCOL 3350 17 GM POWD.PACK GT SCH (09:59)
[2016-11-07] MEDS: CALCITRIOL 0.25 MCG CAPSULE PO SCH (09:59)
[2016-11-07] MEDS: CALCIUM CARBONATE 500 MG TAB.CHEW GT SCH ×3 (09:59→17:31)
[2016-11-07] MEDS: METOPROLOL TARTRATE 25 MG TABLET GT SCH ×2 (09:59→17:31)
[2016-11-07] MEDS: ASCORBIC ACID 500 MG TABLET GT SCH ×2 (09:59→17:31)
[2016-11-07] MEDS: HYDROCODONE/APAP 10/325MG 1 EA TABLET GT SCH ×2 (09:59→20:23)
[2016-11-07] MEDS: CLOPIDOGREL BISULFATE 75 MG TABLET PO SCH (09:59)
[2016-11-07] MEDS: BACLOFEN (10 MG) 10 MG TABLET GT SCH ×4 (09:59→20:22)
[2016-11-07] MEDS: GABAPENTIN 300 MG CAPSULE GT SCH ×3 (09:59→17:31)
[2016-11-07] MEDS: ACIDOPHILUS/BULGARICUS 1 EACH TAB.CHEW GT SCH ×3 (09:59→17:30)
[2016-11-07] MEDS: ESCITALOPRAM OXALATE (10 MG) 10 MG TABLET GT SCH (09:59)
--- NOTE | 2016-11-07 10:25 | NUR ---
Requested Dr. Rafiq Diaz to see pt for facial lesions. He said he will see the pt.
[2016-11-07] MEDS: HYDROGEL DRESSING 90 GM TUBE TP SCH ×4 (11:00→21:04)
[2016-11-07] MEDS: HYDROGEN PEROXIDE 480 ML BOTTLE TP SCH ×2 (11:00→21:04)
[2016-11-07] MEDS: MINERAL OIL/PETROL OINT 396 GM JAR TP SCH ×3 (11:00→17:31)
[2016-11-07] MEDS: Z GUARD REMEDY 4 OZ OINT TP SCH ×2 (11:00→21:04)
[2016-11-07] MEDS: CLOTRIMAZOLE 1% 15 GM TUBE TP SCH ×2 (11:00→21:04)
[2016-11-07] MEDS: GENTAMICIN 0.1% OINT 15 GM TUBE TP SCH ×4 (11:00→21:04)
[2016-11-07] MEDS: NEOMY SULF/BACITRAC ZN/POLY 15 GM TUBE TP SCH (11:00)
[2016-11-07] MEDS: Z GUARD REMEDY 2 OZ OINT TP SCH ×4 (11:00→21:04)
--- NOTE | 2016-11-07 13:00 | NUR ---
Seen by Dr. Rafiq Diaz. He said to monitor facial lesions for now. Notified Vilma Marley.
[2016-11-07 20:12] VITALS: BP 95/70
[2016-11-07] MEDS: CRANBERRY GT SCH (20:22)
[2016-11-07] MEDS: PROSOURCE / PROSTAT (PYXIS) 30 ML UDC GT SCH (20:23)
[2016-11-07] MEDS: ENOXAPARIN SODIUM 40 MG/0.4 ML DISP.SYRIN SQ SCH (20:24)
[2016-11-07] MEDS: MULTIVIT, IRON, MIN NO. 8, FA 1 TAB GT SCH (20:24)
[2016-11-07] MEDS: ATORVASTATIN CALCIUM 20MG TABLET GT SCH (21:04)
[2016-11-08 07:41] VITALS: BP 156/98
[2016-11-08] MEDS: GABAPENTIN 300 MG CAPSULE GT SCH ×3 (09:07→17:32)
[2016-11-08] MEDS: FAMOTIDINE (20 MG) 20 MG TABLET GT SCH ×2 (09:07→21:26)
[2016-11-08] MEDS: CLOPIDOGREL BISULFATE 75 MG TABLET PO SCH (09:07)
[2016-11-08] MEDS: ASCORBIC ACID 500 MG TABLET GT SCH ×2 (09:07→17:32)
[2016-11-08] MEDS: BACLOFEN (10 MG) 10 MG TABLET GT SCH ×4 (09:07→21:28)
[2016-11-08] MEDS: CALCIUM CARBONATE 500 MG TAB.CHEW GT SCH ×3 (09:07→17:32)
[2016-11-08] MEDS: METOPROLOL TARTRATE 25 MG TABLET GT SCH ×2 (09:07→17:32)
[2016-11-08] MEDS: ESCITALOPRAM OXALATE (10 MG) 10 MG TABLET GT SCH (09:07)
[2016-11-08] MEDS: ACIDOPHILUS/BULGARICUS 1 EACH TAB.CHEW GT SCH ×3 (09:07→17:32)
[2016-11-08] MEDS: CALCITRIOL 0.25 MCG CAPSULE PO SCH (09:08)
[2016-11-08] MEDS: MINERAL OIL/PETROL OINT 396 GM JAR TP SCH ×3 (13:00→17:32)
[2016-11-08] MEDS: HYDROCODONE/APAP 10/325MG 1 EA TABLET GT SCH ×2 (15:10→21:30)
[2016-11-08] MEDS: Z GUARD REMEDY 4 OZ OINT TP SCH ×2 (16:00→21:25)
[2016-11-08] MEDS: GENTAMICIN 0.1% OINT 15 GM TUBE TP SCH ×4 (16:00→21:25)
[2016-11-08] MEDS: HYDROGEN PEROXIDE 480 ML BOTTLE TP SCH ×2 (16:00→21:25)
[2016-11-08] MEDS: CLOTRIMAZOLE 1% 15 GM TUBE TP SCH ×2 (16:00→21:25)
[2016-11-08] MEDS: Z GUARD REMEDY 2 OZ OINT TP SCH ×4 (16:00→21:25)
[2016-11-08] MEDS: HYDROGEL DRESSING 90 GM TUBE TP SCH ×4 (16:00→21:25)
[2016-11-08] MEDS: NEOMY SULF/BACITRAC ZN/POLY 15 GM TUBE TP SCH (16:00)
[2016-11-08 19:36] VITALS: BP 110/78
[2016-11-08] MEDS: PROSOURCE / PROSTAT (PYXIS) 30 ML UDC GT SCH (21:26)
[2016-11-08] MEDS: POLYETHYLENE GLYCOL 3350 17 GM POWD.PACK GT SCH (21:28)
[2016-11-08] MEDS: MULTIVIT, IRON, MIN NO. 8, FA 1 TAB GT SCH (21:30)
[2016-11-08] MEDS: ENOXAPARIN SODIUM 40 MG/0.4 ML DISP.SYRIN SQ SCH (21:30)
[2016-11-08] MEDS: CRANBERRY GT SCH (21:32)
[2016-11-08] MEDS: ATORVASTATIN CALCIUM 20MG TABLET GT SCH (21:32)
[2016-11-09 07:51] VITALS: BP 142/71
[2016-11-09] MEDS: ACIDOPHILUS/BULGARICUS 1 EACH TAB.CHEW GT SCH ×3 (08:48→17:00)
[2016-11-09] MEDS: ESCITALOPRAM OXALATE (10 MG) 10 MG TABLET GT SCH (08:49)
[2016-11-09] MEDS: BACLOFEN (10 MG) 10 MG TABLET GT SCH ×4 (08:49→20:33)
[2016-11-09] MEDS: FAMOTIDINE (20 MG) 20 MG TABLET GT SCH ×2 (08:50→20:36)
[2016-11-09] MEDS: METOPROLOL TARTRATE 25 MG TABLET GT SCH ×2 (08:50→17:00)
[2016-11-09] MEDS: GABAPENTIN 300 MG CAPSULE GT SCH ×3 (08:50→17:00)
[2016-11-09] MEDS: ASCORBIC ACID 500 MG TABLET GT SCH ×2 (08:51→17:00)
[2016-11-09] MEDS: CLOPIDOGREL BISULFATE 75 MG TABLET PO SCH (08:51)
[2016-11-09] MEDS: CALCIUM CARBONATE 500 MG TAB.CHEW GT SCH ×3 (08:51→17:00)
[2016-11-09] MEDS: CALCITRIOL 0.25 MCG CAPSULE PO SCH (08:52)
[2016-11-09] MEDS: HYDROCODONE/APAP 10/325MG 1 EA TABLET GT SCH ×2 (10:50→20:34)
[2016-11-09] MEDS: CLOTRIMAZOLE 1% 15 GM TUBE TP SCH ×2 (11:20→21:08)
[2016-11-09] MEDS: HYDROGEN PEROXIDE 480 ML BOTTLE TP SCH ×2 (11:20→21:08)
[2016-11-09] MEDS: HYDROGEL DRESSING 90 GM TUBE TP SCH ×4 (11:20→21:08)
[2016-11-09] MEDS: GENTAMICIN 0.1% OINT 15 GM TUBE TP SCH ×4 (11:20→21:08)
[2016-11-09] MEDS: NEOMY SULF/BACITRAC ZN/POLY 15 GM TUBE TP SCH (11:20)
[2016-11-09] MEDS: Z GUARD REMEDY 4 OZ OINT TP SCH ×2 (11:20→21:09)
[2016-11-09] MEDS: MINERAL OIL/PETROL OINT 396 GM JAR TP SCH ×3 (11:20→17:00)
[2016-11-09] MEDS: Z GUARD REMEDY 2 OZ OINT TP SCH ×4 (11:20→21:09)
[2016-11-09 19:55] VITALS: BP 133/76
[2016-11-09] MEDS: POLYETHYLENE GLYCOL 3350 17 GM POWD.PACK GT SCH (20:33)
[2016-11-09] MEDS: CRANBERRY GT SCH (20:33)
[2016-11-09] MEDS: MULTIVIT, IRON, MIN NO. 8, FA 1 TAB GT SCH (20:36)
[2016-11-09] MEDS: PROSOURCE / PROSTAT (PYXIS) 30 ML UDC GT SCH (20:36)
[2016-11-09] MEDS: ENOXAPARIN SODIUM 40 MG/0.4 ML DISP.SYRIN SQ SCH (20:36)
[2016-11-09] MEDS: ATORVASTATIN CALCIUM 20MG TABLET GT SCH (21:09)
[2016-11-10 08:00] VITALS: BP 151/74
[2016-11-10] MEDS: MINERAL OIL/PETROL OINT 396 GM JAR TP SCH ×3 (09:00→17:07)
[2016-11-10] MEDS: ACIDOPHILUS/BULGARICUS 1 EACH TAB.CHEW GT SCH ×3 (09:19→17:06)
[2016-11-10] MEDS: CALCITRIOL 0.25 MCG CAPSULE PO SCH (09:19)
[2016-11-10] MEDS: CLOPIDOGREL BISULFATE 75 MG TABLET PO SCH (09:19)
[2016-11-10] MEDS: ESCITALOPRAM OXALATE (10 MG) 10 MG TABLET GT SCH (09:19)
[2016-11-10] MEDS: ASCORBIC ACID 500 MG TABLET GT SCH ×2 (09:19→17:07)
[2016-11-10] MEDS: CALCIUM CARBONATE 500 MG TAB.CHEW GT SCH ×3 (09:19→17:07)
[2016-11-10] MEDS: GABAPENTIN 300 MG CAPSULE GT SCH ×3 (09:19→17:07)
[2016-11-10] MEDS: FAMOTIDINE (20 MG) 20 MG TABLET GT SCH ×2 (09:19→21:08)
[2016-11-10] MEDS: BACLOFEN (10 MG) 10 MG TABLET GT SCH ×4 (09:19→21:07)
[2016-11-10] MEDS: METOPROLOL TARTRATE 25 MG TABLET GT SCH ×2 (09:19→17:07)
[2016-11-10] MEDS: HYDROCODONE/APAP 10/325MG 1 EA TABLET GT SCH ×2 (10:36→21:08)
[2016-11-10] MEDS: Z GUARD REMEDY 4 OZ OINT TP SCH ×2 (11:00→21:09)
[2016-11-10] MEDS: HYDROGEN PEROXIDE 480 ML BOTTLE TP SCH ×2 (11:00→21:09)
[2016-11-10] MEDS: Z GUARD REMEDY 2 OZ OINT TP SCH ×4 (11:00→21:09)
[2016-11-10] MEDS: GENTAMICIN 0.1% OINT 15 GM TUBE TP SCH ×4 (11:00→21:09)
[2016-11-10] MEDS: NEOMY SULF/BACITRAC ZN/POLY 15 GM TUBE TP SCH (11:00)
[2016-11-10] MEDS: CLOTRIMAZOLE 1% 15 GM TUBE TP SCH ×2 (11:00→21:09)
[2016-11-10] MEDS: HYDROGEL DRESSING 90 GM TUBE TP SCH ×4 (11:00→21:09)
[2016-11-10 19:59] VITALS: BP 115/65
[2016-11-10] MEDS: POLYETHYLENE GLYCOL 3350 17 GM POWD.PACK GT SCH (21:07)
[2016-11-10] MEDS: CRANBERRY GT SCH (21:07)
[2016-11-10] MEDS: MULTIVIT, IRON, MIN NO. 8, FA 1 TAB GT SCH (21:08)
[2016-11-10] MEDS: PROSOURCE / PROSTAT (PYXIS) 30 ML UDC GT SCH (21:08)
[2016-11-10] MEDS: ENOXAPARIN SODIUM 40 MG/0.4 ML DISP.SYRIN SQ SCH (21:08)
[2016-11-10] MEDS: MAGNESIUM HYDROXIDE 30 ML UDC GT PRN (21:09)
[2016-11-10] MEDS: ATORVASTATIN CALCIUM 20MG TABLET GT SCH (21:09)
[2016-11-11] MEDS: HYDROCODONE/APAP 5/325MG 1 EACH TABLET GT PRN (01:15)
--- NOTE | 2016-11-11 01:16 | NUR ---
[place] pt quacking loud, attended and checked on pt, noted call light within pt's reach , pt complaining of aching pain to sacral area, rated 7 / 10 by pt, repositioned pt and offered fresh cold water and assessed for effectiveness of non - medical interventions, pt still complaining of same intensity of pain and requesting prn pain medicine ,and stated " repositioning not enough to relieve my pain", prn norco as ordered for moderate pain given via gt with water flush.Will continue to monitor and anticipate pt's needs. Re oriented pt with the use of his mouth- call light . Safety
--- NOTE | 2016-11-11 01:24 | NUR ---
Continuation> Safety measures noted.
--- NOTE | 2016-11-11 02:24 | NUR ---
PT ASLEEP, NO SOB, SAFETY AND COMFORT NOTED. NO S/SX OF PAIN.
[2016-11-11 07:43] VITALS: BP 139/84
[2016-11-11] MEDS: HYDROGEL DRESSING 90 GM TUBE TP SCH ×4 (09:00→20:17)
[2016-11-11] MEDS: Z GUARD REMEDY 4 OZ OINT TP SCH ×2 (09:00→20:17)
[2016-11-11] MEDS: CLOTRIMAZOLE 1% 15 GM TUBE TP SCH ×2 (09:00→20:17)
[2016-11-11] MEDS: Z GUARD REMEDY 2 OZ OINT TP SCH ×4 (09:00→20:17)
[2016-11-11] MEDS: NEOMY SULF/BACITRAC ZN/POLY 15 GM TUBE TP SCH (09:00)
[2016-11-11] MEDS: GENTAMICIN 0.1% OINT 15 GM TUBE TP SCH ×4 (09:00→20:17)
[2016-11-11] MEDS: HYDROGEN PEROXIDE 480 ML BOTTLE TP SCH ×2 (09:00→20:17)
[2016-11-11] MEDS: ACIDOPHILUS/BULGARICUS 1 EACH TAB.CHEW GT SCH ×3 (09:43→16:42)
[2016-11-11] MEDS: ESCITALOPRAM OXALATE (10 MG) 10 MG TABLET GT SCH (09:44)
[2016-11-11] MEDS: CLOPIDOGREL BISULFATE 75 MG TABLET PO SCH (09:44)
[2016-11-11] MEDS: CALCITRIOL 0.25 MCG CAPSULE PO SCH (09:44)
[2016-11-11] MEDS: GABAPENTIN 300 MG CAPSULE GT SCH ×3 (09:44→16:42)
[2016-11-11] MEDS: FAMOTIDINE (20 MG) 20 MG TABLET GT SCH ×2 (09:44→20:17)
[2016-11-11] MEDS: ASCORBIC ACID 500 MG TABLET GT SCH ×2 (09:44→16:42)
[2016-11-11] MEDS: CALCIUM CARBONATE 500 MG TAB.CHEW GT SCH ×3 (09:44→16:42)
[2016-11-11] MEDS: HYDROCODONE/APAP 10/325MG 1 EA TABLET GT SCH ×2 (09:44→21:23)
[2016-11-11] MEDS: BACLOFEN (10 MG) 10 MG TABLET GT SCH ×4 (09:44→20:16)
[2016-11-11] MEDS: METOPROLOL TARTRATE 25 MG TABLET GT SCH ×2 (09:44→16:42)
[2016-11-11] MEDS: MINERAL OIL/PETROL OINT 396 GM JAR TP SCH ×3 (09:45→16:42)
[2016-11-11 19:51] VITALS: BP 106/68
[2016-11-11] MEDS: CRANBERRY GT SCH (20:16)
[2016-11-11] MEDS: POLYETHYLENE GLYCOL 3350 17 GM POWD.PACK GT SCH (20:16)
[2016-11-11] MEDS: ENOXAPARIN SODIUM 40 MG/0.4 ML DISP.SYRIN SQ SCH (20:17)
[2016-11-11] MEDS: PROSOURCE / PROSTAT (PYXIS) 30 ML UDC GT SCH (20:17)
[2016-11-11] MEDS: MULTIVIT, IRON, MIN NO. 8, FA 1 TAB GT SCH (20:17)
[2016-11-11] MEDS: ATORVASTATIN CALCIUM 20MG TABLET GT SCH (21:23)
[2016-11-11] MEDS: MAGNESIUM HYDROXIDE 30 ML UDC GT PRN (21:24)
[2016-11-12] MEDS: HYDROCODONE/APAP 5/325MG 1 EACH TABLET GT PRN ×2 (04:36→16:19)
--- NOTE | 2016-11-12 04:36 | NUR ---
Pt c/o pain to sacral area and back rated 7/10 , repositioned pt and offered other comfort measures, massaged pt's back, kept pt clean and dry, still pt is c/o of same intensity of pain and asking for Pain medicine, Prn [place] for mild pain given to pt with water flush. Will continue to monitor and anticipate pt's needs. Call light within pt's easy reach.
--- NOTE | 2016-11-12 07:05 | NUR ---
PT ASLEEP , NO SOB, NO S/SX OF PAIN NOTED, KEPT CLEAN AND DRY, CALL LIGHT WITHIN PT'S REACH. ALL NEEDS ATTENDED .ENDORSE TO AM ONCOMING NURSE.
[2016-11-12 07:35] VITALS: BP 115/74
[2016-11-12] MEDS ORDERED: LIDOCAINE 2% GEL 30 ML TUBE TP ONE (09:00)
[2016-11-12] MEDS: ACIDOPHILUS/BULGARICUS 1 EACH TAB.CHEW GT SCH ×3 (09:40→17:17)
[2016-11-12] MEDS: ESCITALOPRAM OXALATE (10 MG) 10 MG TABLET GT SCH (09:41)
[2016-11-12] MEDS: MINERAL OIL/PETROL OINT 396 GM JAR TP SCH ×3 (09:41→17:17)
[2016-11-12] MEDS: CALCITRIOL 0.25 MCG CAPSULE PO SCH (09:41)
[2016-11-12] MEDS: ASCORBIC ACID 500 MG TABLET GT SCH ×2 (09:41→17:17)
[2016-11-12] MEDS: FAMOTIDINE (20 MG) 20 MG TABLET GT SCH ×2 (09:41→21:35)
[2016-11-12] MEDS: GABAPENTIN 300 MG CAPSULE GT SCH ×3 (09:41→17:17)
[2016-11-12] MEDS: METOPROLOL TARTRATE 25 MG TABLET GT SCH ×2 (09:41→17:17)
[2016-11-12] MEDS: CLOPIDOGREL BISULFATE 75 MG TABLET PO SCH (09:41)
[2016-11-12] MEDS: CALCIUM CARBONATE 500 MG TAB.CHEW GT SCH ×3 (09:41→17:17)
[2016-11-12] MEDS: BACLOFEN (10 MG) 10 MG TABLET GT SCH ×4 (09:41→21:35)
[2016-11-12] MEDS: HYDROCODONE/APAP 10/325MG 1 EA TABLET GT SCH ×2 (10:37→21:36)
[2016-11-12] MEDS: NEOMY SULF/BACITRAC ZN/POLY 15 GM TUBE TP SCH (11:00)
[2016-11-12] MEDS: GENTAMICIN 0.1% OINT 15 GM TUBE TP SCH ×4 (11:00→21:42)
[2016-11-12] MEDS: HYDROGEL DRESSING 90 GM TUBE TP SCH ×4 (11:00→21:42)
[2016-11-12] MEDS: CLOTRIMAZOLE 1% 15 GM TUBE TP SCH ×2 (11:00→21:42)
[2016-11-12] MEDS: HYDROGEN PEROXIDE 480 ML BOTTLE TP SCH ×2 (11:00→21:35)
[2016-11-12] MEDS: Z GUARD REMEDY 2 OZ OINT TP SCH ×4 (11:00→21:43)
[2016-11-12] MEDS: Z GUARD REMEDY 4 OZ OINT TP SCH ×2 (11:00→21:43)
[2016-11-12 19:55] VITALS: BP 117/76
[2016-11-12] MEDS: ATORVASTATIN CALCIUM 20MG TABLET GT SCH (21:35)
[2016-11-12] MEDS: POLYETHYLENE GLYCOL 3350 17 GM POWD.PACK GT SCH (21:35)
[2016-11-12] MEDS: PROSOURCE / PROSTAT (PYXIS) 30 ML UDC GT SCH (21:35)
[2016-11-12] MEDS: MULTIVIT, IRON, MIN NO. 8, FA 1 TAB GT SCH (21:35)
[2016-11-12] MEDS: ENOXAPARIN SODIUM 40 MG/0.4 ML DISP.SYRIN SQ SCH (21:35)
[2016-11-12] MEDS: CRANBERRY GT SCH (21:35)
[2016-11-13] MEDS: HYDROGEL DRESSING 90 GM TUBE TP SCH ×4 (09:00→21:57)
[2016-11-13] MEDS: HYDROGEN PEROXIDE 480 ML BOTTLE TP SCH ×2 (09:00→21:57)
[2016-11-13] MEDS: NEOMY SULF/BACITRAC ZN/POLY 15 GM TUBE TP SCH (09:00)
[2016-11-13] MEDS: GENTAMICIN 0.1% OINT 15 GM TUBE TP SCH ×4 (09:00→21:57)
[2016-11-13] MEDS: BACLOFEN (10 MG) 10 MG TABLET GT SCH ×4 (09:21→21:56)
[2016-11-13] MEDS: ESCITALOPRAM OXALATE (10 MG) 10 MG TABLET GT SCH (09:21)
[2016-11-13] MEDS: ACIDOPHILUS/BULGARICUS 1 EACH TAB.CHEW GT SCH ×3 (09:21→16:48)
[2016-11-13] MEDS: METOPROLOL TARTRATE 25 MG TABLET GT SCH ×2 (09:21→16:49)
[2016-11-13] MEDS: GABAPENTIN 300 MG CAPSULE GT SCH ×3 (09:22→16:49)
[2016-11-13] MEDS: HYDROCODONE/APAP 10/325MG 1 EA TABLET GT SCH ×2 (09:22→21:00)
[2016-11-13] MEDS: FAMOTIDINE (20 MG) 20 MG TABLET GT SCH ×2 (09:22→21:56)
[2016-11-13] MEDS: CLOPIDOGREL BISULFATE 75 MG TABLET PO SCH (09:22)
[2016-11-13] MEDS: ASCORBIC ACID 500 MG TABLET GT SCH ×2 (09:22→16:49)
[2016-11-13] MEDS: CALCIUM CARBONATE 500 MG TAB.CHEW GT SCH ×3 (09:22→16:49)
[2016-11-13] MEDS: MINERAL OIL/PETROL OINT 396 GM JAR TP SCH ×3 (09:23→16:49)
[2016-11-13] MEDS: CALCITRIOL 0.25 MCG CAPSULE PO SCH (09:23)
[2016-11-13] MEDS: CLOTRIMAZOLE 1% 15 GM TUBE TP SCH ×2 (10:00→21:57)
[2016-11-13] MEDS: Z GUARD REMEDY 4 OZ OINT TP SCH ×2 (10:00→21:57)
[2016-11-13] MEDS: Z GUARD REMEDY 2 OZ OINT TP SCH ×4 (10:00→21:57)
[2016-11-13] MEDS: HYDROCODONE/APAP 5/325MG 1 EACH TABLET GT PRN (12:28)
[2016-11-13] MEDS: METHOCARBAMOL (750MG) 750 MG TABLET GT PRN (12:28)
[2016-11-13 20:00] VITALS: BP 105/62
[2016-11-13] MEDS: CRANBERRY GT SCH (21:56)
[2016-11-13] MEDS: POLYETHYLENE GLYCOL 3350 17 GM POWD.PACK GT SCH (21:56)
[2016-11-13] MEDS: MULTIVIT, IRON, MIN NO. 8, FA 1 TAB GT SCH (21:56)
[2016-11-13] MEDS: PROSOURCE / PROSTAT (PYXIS) 30 ML UDC GT SCH (21:56)
[2016-11-13] MEDS: ENOXAPARIN SODIUM 40 MG/0.4 ML DISP.SYRIN SQ SCH (21:57)
[2016-11-13] MEDS: ATORVASTATIN CALCIUM 20MG TABLET GT SCH (21:58)
[2016-11-14 08:02] VITALS: BP 105/65
[2016-11-14] MEDS: FAMOTIDINE (20 MG) 20 MG TABLET GT SCH ×2 (09:31→20:31)
[2016-11-14] MEDS: HYDROCODONE/APAP 10/325MG 1 EA TABLET GT SCH ×2 (09:31→20:31)
[2016-11-14] MEDS: GABAPENTIN 300 MG CAPSULE GT SCH ×3 (09:31→17:37)
[2016-11-14] MEDS: METOPROLOL TARTRATE 25 MG TABLET GT SCH ×2 (09:31→17:37)
[2016-11-14] MEDS: CLOPIDOGREL BISULFATE 75 MG TABLET PO SCH (09:31)
[2016-11-14] MEDS: ASCORBIC ACID 500 MG TABLET GT SCH ×2 (09:31→17:37)
[2016-11-14] MEDS: CALCIUM CARBONATE 500 MG TAB.CHEW GT SCH ×3 (09:31→17:37)
[2016-11-14] MEDS: BACLOFEN (10 MG) 10 MG TABLET GT SCH ×4 (09:31→20:31)
[2016-11-14] MEDS: CALCITRIOL 0.25 MCG CAPSULE PO SCH (09:31)
[2016-11-14] MEDS: ESCITALOPRAM OXALATE (10 MG) 10 MG TABLET GT SCH (09:31)
[2016-11-14] MEDS: ACIDOPHILUS/BULGARICUS 1 EACH TAB.CHEW GT SCH ×3 (09:31→17:36)
[2016-11-14] MEDS: GENTAMICIN 0.1% OINT 15 GM TUBE TP SCH ×4 (09:32→21:26)
[2016-11-14] MEDS: CLOTRIMAZOLE 1% 15 GM TUBE TP SCH ×2 (09:32→21:26)
[2016-11-14] MEDS: HYDROGEN PEROXIDE 480 ML BOTTLE TP SCH ×2 (09:32→21:26)
[2016-11-14] MEDS: HYDROGEL DRESSING 90 GM TUBE TP SCH ×4 (09:32→21:26)
[2016-11-14] MEDS: MINERAL OIL/PETROL OINT 396 GM JAR TP SCH ×3 (09:32→17:37)
[2016-11-14] MEDS: NEOMY SULF/BACITRAC ZN/POLY 15 GM TUBE TP SCH (09:32)
[2016-11-14] MEDS: Z GUARD REMEDY 2 OZ OINT TP SCH ×4 (09:32→21:26)
[2016-11-14] MEDS: Z GUARD REMEDY 4 OZ OINT TP SCH ×2 (09:33→21:26)
--- NOTE | 2016-11-14 12:19 | NUR ---
Seen by Dr. Rafiq Diaz. Received order to apply Aldara cream 5% topically to scalp growths/lesions 2 times a week for 16 weeks for actinic keratosis. Notified Vilma.
[2016-11-14] MEDS ORDERED: ALDARA TP SCH (13:00)
--- NOTE | 2016-11-14 13:30 | NUR ---
Called Dr. Gonzalez's office to remind him of routine trach tube change, left message with Danae.
--- NOTE | 2016-11-14 17:10 | NUR ---
Pt was seen by CARLI Ferraro. Pt refused excisional debridement on the sacral wound at this time.
[2016-11-14 20:04] VITALS: BP 104/63
[2016-11-14] MEDS: CRANBERRY GT SCH (20:31)
[2016-11-14] MEDS: PROSOURCE / PROSTAT (PYXIS) 30 ML UDC GT SCH (20:31)
[2016-11-14] MEDS: POLYETHYLENE GLYCOL 3350 17 GM POWD.PACK GT SCH (20:31)
[2016-11-14] MEDS: ENOXAPARIN SODIUM 40 MG/0.4 ML DISP.SYRIN SQ SCH (20:34)
[2016-11-14] MEDS: MULTIVIT, IRON, MIN NO. 8, FA 1 TAB GT SCH (20:34)
[2016-11-14] MEDS: ATORVASTATIN CALCIUM 20MG TABLET GT SCH (21:26)
[2016-11-15 07:48] VITALS: BP 133/76
[2016-11-15] MEDS: ACIDOPHILUS/BULGARICUS 1 EACH TAB.CHEW GT SCH ×3 (09:20→17:28)
[2016-11-15] MEDS: METOPROLOL TARTRATE 25 MG TABLET GT SCH ×2 (09:20→17:28)
[2016-11-15] MEDS: FAMOTIDINE (20 MG) 20 MG TABLET GT SCH ×2 (09:20→20:24)
[2016-11-15] MEDS: CALCIUM CARBONATE 500 MG TAB.CHEW GT SCH ×3 (09:20→17:28)
[2016-11-15] MEDS: BACLOFEN (10 MG) 10 MG TABLET GT SCH ×4 (09:20→20:23)
[2016-11-15] MEDS: GABAPENTIN 300 MG CAPSULE GT SCH ×3 (09:20→17:28)
[2016-11-15] MEDS: CLOPIDOGREL BISULFATE 75 MG TABLET PO SCH (09:20)
[2016-11-15] MEDS: ASCORBIC ACID 500 MG TABLET GT SCH ×2 (09:20→17:28)
[2016-11-15] MEDS: ESCITALOPRAM OXALATE (10 MG) 10 MG TABLET GT SCH (09:20)
[2016-11-15] MEDS: HYDROCODONE/APAP 10/325MG 1 EA TABLET GT SCH ×2 (09:20→20:23)
[2016-11-15] MEDS: CALCITRIOL 0.25 MCG CAPSULE PO SCH (09:20)
[2016-11-15] MEDS: CLOTRIMAZOLE 1% 15 GM TUBE TP SCH ×2 (09:21→21:07)
[2016-11-15] MEDS: MINERAL OIL/PETROL OINT 396 GM JAR TP SCH ×3 (09:21→17:28)
[2016-11-15] MEDS: NEOMY SULF/BACITRAC ZN/POLY 15 GM TUBE TP SCH (09:21)
[2016-11-15] MEDS: Z GUARD REMEDY 4 OZ OINT TP SCH ×2 (09:21→21:08)
[2016-11-15] MEDS: GENTAMICIN 0.1% OINT 15 GM TUBE TP SCH ×4 (09:21→21:07)
[2016-11-15] MEDS: Z GUARD REMEDY 2 OZ OINT TP SCH ×4 (09:21→21:08)
[2016-11-15] MEDS: HYDROGEL DRESSING 90 GM TUBE TP SCH ×4 (09:21→21:07)
[2016-11-15] MEDS: HYDROGEN PEROXIDE 480 ML BOTTLE TP SCH ×2 (09:21→21:07)
[2016-11-15 20:16] VITALS: BP 93/61
[2016-11-15] MEDS: CRANBERRY GT SCH (20:23)
[2016-11-15] MEDS: POLYETHYLENE GLYCOL 3350 17 GM POWD.PACK GT SCH (20:23)
[2016-11-15] MEDS: ENOXAPARIN SODIUM 40 MG/0.4 ML DISP.SYRIN SQ SCH (20:24)
[2016-11-15] MEDS: PROSOURCE / PROSTAT (PYXIS) 30 ML UDC GT SCH (20:24)
[2016-11-15] MEDS: MULTIVIT, IRON, MIN NO. 8, FA 1 TAB GT SCH (20:24)
[2016-11-15] MEDS: ATORVASTATIN CALCIUM 20MG TABLET GT SCH (21:08)
[2016-11-16 07:53] VITALS: BP 116/65
[2016-11-16] MEDS: GENTAMICIN 0.1% OINT 15 GM TUBE TP SCH ×4 (09:00→21:49)
[2016-11-16] MEDS: NEOMY SULF/BACITRAC ZN/POLY 15 GM TUBE TP SCH (09:00)
[2016-11-16] MEDS: Z GUARD REMEDY 4 OZ OINT TP SCH ×2 (09:00→21:50)
[2016-11-16] MEDS: HYDROGEL DRESSING 90 GM TUBE TP SCH ×4 (09:00→21:49)
[2016-11-16] MEDS: CLOTRIMAZOLE 1% 15 GM TUBE TP SCH ×2 (09:00→21:49)
[2016-11-16] MEDS: MINERAL OIL/PETROL OINT 396 GM JAR TP SCH ×3 (09:00→17:00)
[2016-11-16] MEDS: HYDROGEN PEROXIDE 480 ML BOTTLE TP SCH ×2 (09:00→21:49)
[2016-11-16] MEDS: Z GUARD REMEDY 2 OZ OINT TP SCH ×4 (09:00→21:49)
[2016-11-16] MEDS: ACIDOPHILUS/BULGARICUS 1 EACH TAB.CHEW GT SCH ×3 (09:16→17:00)
[2016-11-16] MEDS: GABAPENTIN 300 MG CAPSULE GT SCH ×3 (09:16→17:00)
[2016-11-16] MEDS: METOPROLOL TARTRATE 25 MG TABLET GT SCH ×2 (09:16→17:00)
[2016-11-16] MEDS: ESCITALOPRAM OXALATE (10 MG) 10 MG TABLET GT SCH (09:16)
[2016-11-16] MEDS: BACLOFEN (10 MG) 10 MG TABLET GT SCH ×4 (09:16→20:56)
[2016-11-16] MEDS: FAMOTIDINE (20 MG) 20 MG TABLET GT SCH ×2 (09:17→20:56)
[2016-11-16] MEDS: CALCIUM CARBONATE 500 MG TAB.CHEW GT SCH ×3 (09:17→17:00)
[2016-11-16] MEDS: CLOPIDOGREL BISULFATE 75 MG TABLET PO SCH (09:18)
[2016-11-16] MEDS: CALCITRIOL 0.25 MCG CAPSULE PO SCH (09:18)
[2016-11-16] MEDS: HYDROCODONE/APAP 10/325MG 1 EA TABLET GT SCH ×2 (09:25→20:56)
[2016-11-16] MEDS: ASCORBIC ACID 500 MG TABLET GT SCH ×2 (09:25→17:00)
--- NOTE | 2016-11-16 10:35 | NUR ---
Spoke with Beto from Dr. Gonzalez's office to remind MD regarding monthly trach change. He said he will relay the message.
[2016-11-16] MEDS: POLYETHYLENE GLYCOL 3350 17 GM POWD.PACK GT SCH (20:56)
[2016-11-16] MEDS: CRANBERRY GT SCH (20:56)
[2016-11-16] MEDS: PROSOURCE / PROSTAT (PYXIS) 30 ML UDC GT SCH (20:56)
[2016-11-16] MEDS: MULTIVIT, IRON, MIN NO. 8, FA 1 TAB GT SCH (20:56)
[2016-11-16] MEDS: ENOXAPARIN SODIUM 40 MG/0.4 ML DISP.SYRIN SQ SCH (20:57)
[2016-11-16] MEDS: ATORVASTATIN CALCIUM 20MG TABLET GT SCH (21:50)
[2016-11-16 22:26] VITALS: BP 94/61
[2016-11-17 07:34] VITALS: BP 157/70
[2016-11-17] MEDS: APAP GT PRN (07:40)
[2016-11-17] MEDS: OXYCODONE GT PRN (07:40)
[2016-11-17] MEDS: GABAPENTIN 300 MG CAPSULE GT SCH ×3 (08:07→17:00)
[2016-11-17] MEDS: METOPROLOL TARTRATE 25 MG TABLET GT SCH ×2 (08:07→17:00)
[2016-11-17] MEDS: CLOPIDOGREL BISULFATE 75 MG TABLET PO SCH (08:07)
[2016-11-17] MEDS: ASCORBIC ACID 500 MG TABLET GT SCH ×2 (08:07→17:00)
[2016-11-17] MEDS: ACIDOPHILUS/BULGARICUS 1 EACH TAB.CHEW GT SCH ×3 (08:07→17:00)
[2016-11-17] MEDS: BACLOFEN (10 MG) 10 MG TABLET GT SCH ×4 (08:07→21:53)
[2016-11-17] MEDS: CALCITRIOL 0.25 MCG CAPSULE PO SCH (08:07)
[2016-11-17] MEDS: ESCITALOPRAM OXALATE (10 MG) 10 MG TABLET GT SCH (08:07)
[2016-11-17] MEDS: CALCIUM CARBONATE 500 MG TAB.CHEW GT SCH ×3 (08:07→17:00)
[2016-11-17] MEDS: FAMOTIDINE (20 MG) 20 MG TABLET GT SCH ×2 (08:07→21:53)
[2016-11-17] MEDS: HYDROCODONE/APAP 10/325MG 1 EA TABLET GT SCH ×2 (09:00→22:00)
[2016-11-17] MEDS: NEOMY SULF/BACITRAC ZN/POLY 15 GM TUBE TP SCH (09:00)
[2016-11-17] MEDS: GENTAMICIN 0.1% OINT 15 GM TUBE TP SCH ×4 (09:00→21:54)
[2016-11-17] MEDS: HYDROGEL DRESSING 90 GM TUBE TP SCH ×4 (09:00→21:54)
--- NOTE | 2016-11-17 11:45 | NUR ---
Notified Dr. Walker that [place] 10/325 mg has not been delivered by [employer] yet. Spoke with Ines, she said it was DC'd on 11/03/16. Clarified with her that only the [place] 10/325 mg GT q 4 PRN was DC'd but not the BID order 30 minutes prior to wound treatment. Dr. Walker ordered to give [place] 5/325 mg 2 tabs via GT 30 minutes prior to wound treatment x 1. Addendum: 11/17/16 at 1211 by WINIFRED GARCÍA RN [facility] pharmacy delivered [place] 5/325 mg this morning, but not [place] 10/325 mg.
[2016-11-17] MEDS: MINERAL OIL/PETROL OINT 396 GM JAR TP SCH ×3 (12:00→17:00)
[2016-11-17] MEDS: Z GUARD REMEDY 4 OZ OINT TP SCH ×2 (12:00→21:55)
[2016-11-17] MEDS: CLOTRIMAZOLE 1% 15 GM TUBE TP SCH ×2 (12:00→21:54)
[2016-11-17] MEDS: HYDROGEN PEROXIDE 480 ML BOTTLE TP SCH ×2 (12:00→21:54)
[2016-11-17] MEDS: Z GUARD REMEDY 2 OZ OINT TP SCH ×4 (12:00→21:55)
[2016-11-17] MEDS ORDERED: HYDROCODONE/APAP 5/325MG 1 EACH TABLET GT PRN (13:30)
[2016-11-17 19:56] VITALS: BP 97/56
[2016-11-17] MEDS: POLYETHYLENE GLYCOL 3350 17 GM POWD.PACK GT SCH (21:53)
[2016-11-17] MEDS: PROSOURCE / PROSTAT (PYXIS) 30 ML UDC GT SCH (21:53)
[2016-11-17] MEDS: CRANBERRY GT SCH (21:53)
[2016-11-17] MEDS: ENOXAPARIN SODIUM 40 MG/0.4 ML DISP.SYRIN SQ SCH (21:54)
[2016-11-17] MEDS: MULTIVIT, IRON, MIN NO. 8, FA 1 TAB GT SCH (21:54)
[2016-11-17] MEDS: ATORVASTATIN CALCIUM 20MG TABLET GT SCH (21:55)
[2016-11-18 07:31] VITALS: BP 134/70
[2016-11-18] MEDS: BACLOFEN (10 MG) 10 MG TABLET GT SCH ×4 (08:57→21:55)
[2016-11-18] MEDS: METOPROLOL TARTRATE 25 MG TABLET GT SCH ×2 (08:57→17:35)
[2016-11-18] MEDS: ESCITALOPRAM OXALATE (10 MG) 10 MG TABLET GT SCH (08:57)
[2016-11-18] MEDS: ACIDOPHILUS/BULGARICUS 1 EACH TAB.CHEW GT SCH ×3 (08:57→17:36)
[2016-11-18] MEDS: FAMOTIDINE (20 MG) 20 MG TABLET GT SCH ×2 (08:58→21:55)
[2016-11-18] MEDS: CLOPIDOGREL BISULFATE 75 MG TABLET PO SCH (08:58)
[2016-11-18] MEDS: GABAPENTIN 300 MG CAPSULE GT SCH ×3 (08:58→17:35)
[2016-11-18] MEDS: CALCIUM CARBONATE 500 MG TAB.CHEW GT SCH ×3 (08:58→17:35)
[2016-11-18] MEDS: ASCORBIC ACID 500 MG TABLET GT SCH ×2 (08:58→17:35)
[2016-11-18] MEDS: MINERAL OIL/PETROL OINT 396 GM JAR TP SCH ×3 (08:58→17:35)
[2016-11-18] MEDS: CALCITRIOL 0.25 MCG CAPSULE PO SCH (08:58)
[2016-11-18] MEDS: NEOMY SULF/BACITRAC ZN/POLY 15 GM TUBE TP SCH (09:00)
[2016-11-18] MEDS ORDERED: HYDROGEL DRESSING 90 GM TUBE TP SCH (09:00)
[2016-11-18] MEDS ORDERED: Z GUARD REMEDY 2 OZ OINT TP SCH (09:00)
[2016-11-18] MEDS: OXYCODONE GT PRN (11:34)
[2016-11-18] MEDS: APAP GT PRN (11:34)
[2016-11-18] MEDS: HYDROCODONE/APAP 10/325MG 1 EA TABLET GT SCH ×2 (14:49→21:55)
[2016-11-18] MEDS: GENTAMICIN 0.1% OINT 15 GM TUBE TP SCH ×4 (16:00→21:55)
[2016-11-18] MEDS: Z GUARD REMEDY 2 OZ OINT TP SCH ×3 (16:00→21:55)
[2016-11-18] MEDS: HYDROGEN PEROXIDE 480 ML BOTTLE TP SCH ×2 (16:00→21:55)
[2016-11-18] MEDS: HYDROGEL DRESSING 90 GM TUBE TP SCH ×3 (16:00→21:55)
[2016-11-18] MEDS: CLOTRIMAZOLE 1% 15 GM TUBE TP SCH ×2 (16:00→21:55)
[2016-11-18] MEDS: Z GUARD REMEDY 4 OZ OINT TP SCH ×2 (16:00→21:55)
[2016-11-18 21:41] VITALS: BP 92/76
[2016-11-18] MEDS: CRANBERRY GT SCH (21:55)
[2016-11-18] MEDS: ENOXAPARIN SODIUM 40 MG/0.4 ML DISP.SYRIN SQ SCH (21:55)
[2016-11-18] MEDS: POLYETHYLENE GLYCOL 3350 17 GM POWD.PACK GT SCH (21:55)
[2016-11-18] MEDS: MULTIVIT, IRON, MIN NO. 8, FA 1 TAB GT SCH (21:55)
[2016-11-18] MEDS: PROSOURCE / PROSTAT (PYXIS) 30 ML UDC GT SCH (21:55)
[2016-11-18] MEDS: ATORVASTATIN CALCIUM 20MG TABLET GT SCH (22:12)
[2016-11-19] MEDS: APAP GT PRN (02:36)
[2016-11-19] MEDS: OXYCODONE GT PRN (02:36)
--- NOTE | 2016-11-19 02:36 | NUR ---
pt c/o of generalized pain, 09/29. pt care and repositioning rendered. conmfort measures rendered. ineffective. administered percocet 10/325 mg via gt. will monitor closely.
--- NOTE | 2016-11-19 03:15 | NUR ---
prn percocet effective. pt pain level 0/10. pt calm, no distress noted. safety measures in place.
[2016-11-19 07:23] VITALS: BP 93/62
[2016-11-19] MEDS: METOPROLOL TARTRATE 25 MG TABLET GT SCH ×2 (09:00→17:00)
[2016-11-19] MEDS: BACLOFEN (10 MG) 10 MG TABLET GT SCH ×4 (09:30→21:49)
[2016-11-19] MEDS: ACIDOPHILUS/BULGARICUS 1 EACH TAB.CHEW GT SCH ×3 (09:30→17:38)
[2016-11-19] MEDS: ESCITALOPRAM OXALATE (10 MG) 10 MG TABLET GT SCH (09:30)
[2016-11-19] MEDS: ASCORBIC ACID 500 MG TABLET GT SCH ×2 (09:31→17:38)
[2016-11-19] MEDS: CALCITRIOL 0.25 MCG CAPSULE PO SCH (09:31)
[2016-11-19] MEDS: MINERAL OIL/PETROL OINT 396 GM JAR TP SCH ×3 (09:31→17:38)
[2016-11-19] MEDS: CALCIUM CARBONATE 500 MG TAB.CHEW GT SCH ×3 (09:31→17:38)
[2016-11-19] MEDS: FAMOTIDINE (20 MG) 20 MG TABLET GT SCH ×2 (09:31→21:50)
[2016-11-19] MEDS: GABAPENTIN 300 MG CAPSULE GT SCH ×3 (09:31→17:38)
[2016-11-19] MEDS: CLOPIDOGREL BISULFATE 75 MG TABLET PO SCH (09:31)
[2016-11-19] MEDS: HYDROCODONE/APAP 10/325MG 1 EA TABLET GT SCH ×2 (10:30→21:50)
[2016-11-19] MEDS: Z GUARD REMEDY 2 OZ OINT TP SCH ×4 (11:00→21:51)
[2016-11-19] MEDS: GENTAMICIN 0.1% OINT 15 GM TUBE TP SCH ×4 (11:00→21:51)
[2016-11-19] MEDS: HYDROGEN PEROXIDE 480 ML BOTTLE TP SCH ×2 (11:00→21:51)
[2016-11-19] MEDS: HYDROGEL DRESSING 90 GM TUBE TP SCH ×4 (11:00→21:51)
[2016-11-19] MEDS: Z GUARD REMEDY 4 OZ OINT TP SCH ×2 (11:00→21:51)
[2016-11-19] MEDS: CLOTRIMAZOLE 1% 15 GM TUBE TP SCH ×2 (11:00→21:51)
[2016-11-19] MEDS: HYDROCODONE/APAP 5/325MG 1 EACH TABLET GT PRN (14:47)
--- NOTE | 2016-11-19 14:47 | NUR ---
[place] 5/325mg via GT given PRN moderate pain on sacral area. Repositioned patient, offered to change channel, attempted to distract patient by conversation but pt continued to ask for PRN pain medicine.
[2016-11-19] MEDS: MAGNESIUM HYDROXIDE 30 ML UDC GT PRN (17:39)
--- NOTE | 2016-11-19 18:00 | NUR ---
call made to [facility] pharmacy regarding norco 10/325mg to be given 30 min prior to wound treatment.only remaining 2.told that insurance not approved yet.pharmacy waiting for approval.they will let us know about status of refill.its ok to get medication from [facility].
[2016-11-19 19:45] VITALS: BP 118/74
[2016-11-19] MEDS: CRANBERRY GT SCH (21:49)
[2016-11-19] MEDS: POLYETHYLENE GLYCOL 3350 17 GM POWD.PACK GT SCH (21:49)
[2016-11-19] MEDS: PROSOURCE / PROSTAT (PYXIS) 30 ML UDC GT SCH (21:50)
[2016-11-19] MEDS: MULTIVIT, IRON, MIN NO. 8, FA 1 TAB GT SCH (21:50)
[2016-11-19] MEDS: ENOXAPARIN SODIUM 40 MG/0.4 ML DISP.SYRIN SQ SCH (21:51)
[2016-11-19] MEDS: ATORVASTATIN CALCIUM 20MG TABLET GT SCH (21:52)
[2016-11-20 07:38] VITALS: BP 127/78
[2016-11-20] MEDS: BACLOFEN (10 MG) 10 MG TABLET GT SCH ×4 (08:33→21:09)
[2016-11-20] MEDS: GABAPENTIN 300 MG CAPSULE GT SCH ×3 (08:33→16:03)
[2016-11-20] MEDS: ACIDOPHILUS/BULGARICUS 1 EACH TAB.CHEW GT SCH ×3 (08:33→16:03)
[2016-11-20] MEDS: METOPROLOL TARTRATE 25 MG TABLET GT SCH ×2 (08:33→16:30)
[2016-11-20] MEDS: ESCITALOPRAM OXALATE (10 MG) 10 MG TABLET GT SCH (08:33)
[2016-11-20] MEDS: CALCITRIOL 0.25 MCG CAPSULE PO SCH (08:34)
[2016-11-20] MEDS: FAMOTIDINE (20 MG) 20 MG TABLET GT SCH ×2 (08:34→21:09)
[2016-11-20] MEDS: ASCORBIC ACID 500 MG TABLET GT SCH ×2 (08:34→16:03)
[2016-11-20] MEDS: CLOPIDOGREL BISULFATE 75 MG TABLET PO SCH (08:34)
[2016-11-20] MEDS: CALCIUM CARBONATE 500 MG TAB.CHEW GT SCH ×3 (08:34→16:03)
[2016-11-20] MEDS: MINERAL OIL/PETROL OINT 396 GM JAR TP SCH ×3 (08:34→16:03)
[2016-11-20] MEDS: HYDROCODONE/APAP 10/325MG 1 EA TABLET GT SCH ×2 (08:39→21:11)
[2016-11-20] MEDS: HYDROGEN PEROXIDE 480 ML BOTTLE TP SCH ×2 (09:00→21:10)
[2016-11-20] MEDS: Z GUARD REMEDY 4 OZ OINT TP SCH ×2 (09:00→21:10)
[2016-11-20] MEDS: GENTAMICIN 0.1% OINT 15 GM TUBE TP SCH ×4 (09:00→21:10)
[2016-11-20] MEDS: CLOTRIMAZOLE 1% 15 GM TUBE TP SCH ×2 (09:00→21:10)
[2016-11-20] MEDS: Z GUARD REMEDY 2 OZ OINT TP SCH ×4 (09:00→21:10)
[2016-11-20] MEDS: HYDROGEL DRESSING 90 GM TUBE TP SCH ×4 (09:00→21:10)
[2016-11-20] MEDS: HYDROCODONE/APAP 5/325MG 1 EACH TABLET GT PRN (16:02)
[2016-11-20] MEDS: METHOCARBAMOL (750MG) 750 MG TABLET GT PRN (16:02)
[2016-11-20 19:46] VITALS: BP 118/72
[2016-11-20] MEDS: CRANBERRY GT SCH (21:09)
[2016-11-20] MEDS: MULTIVIT, IRON, MIN NO. 8, FA 1 TAB GT SCH (21:09)
[2016-11-20] MEDS: POLYETHYLENE GLYCOL 3350 17 GM POWD.PACK GT SCH (21:09)
[2016-11-20] MEDS: ENOXAPARIN SODIUM 40 MG/0.4 ML DISP.SYRIN SQ SCH (21:09)
[2016-11-20] MEDS: PROSOURCE / PROSTAT (PYXIS) 30 ML UDC GT SCH (21:09)
[2016-11-20] MEDS: ATORVASTATIN CALCIUM 20MG TABLET GT SCH (21:10)
[2016-11-21 08:24] VITALS: BP 125/65
[2016-11-21] MEDS: ESCITALOPRAM OXALATE (10 MG) 10 MG TABLET GT SCH (08:48)
[2016-11-21] MEDS: ACIDOPHILUS/BULGARICUS 1 EACH TAB.CHEW GT SCH ×3 (08:48→17:52)
[2016-11-21] MEDS: BACLOFEN (10 MG) 10 MG TABLET GT SCH ×4 (08:48→21:59)
[2016-11-21] MEDS: CALCIUM CARBONATE 500 MG TAB.CHEW GT SCH ×3 (08:49→17:53)
[2016-11-21] MEDS: CLOPIDOGREL BISULFATE 75 MG TABLET PO SCH (08:49)
[2016-11-21] MEDS: HYDROGEL DRESSING 90 GM TUBE TP SCH ×4 (08:49→21:00)
[2016-11-21] MEDS: METOPROLOL TARTRATE 25 MG TABLET GT SCH ×2 (08:49→17:52)
[2016-11-21] MEDS: ASCORBIC ACID 500 MG TABLET GT SCH ×2 (08:49→17:53)
[2016-11-21] MEDS: FAMOTIDINE (20 MG) 20 MG TABLET GT SCH ×2 (08:49→21:00)
[2016-11-21] MEDS: HYDROCODONE/APAP 10/325MG 1 EA TABLET GT SCH ×2 (08:49→22:05)
[2016-11-21] MEDS: CALCITRIOL 0.25 MCG CAPSULE PO SCH (08:49)
[2016-11-21] MEDS: GABAPENTIN 300 MG CAPSULE GT SCH ×3 (08:49→17:53)
[2016-11-21] MEDS: MINERAL OIL/PETROL OINT 396 GM JAR TP SCH ×3 (08:49→17:53)
[2016-11-21] MEDS: Z GUARD REMEDY 4 OZ OINT TP SCH ×2 (08:50→21:00)
[2016-11-21] MEDS: GENTAMICIN 0.1% OINT 15 GM TUBE TP SCH ×4 (08:50→21:00)
[2016-11-21] MEDS: HYDROGEN PEROXIDE 480 ML BOTTLE TP SCH ×2 (08:50→21:00)
[2016-11-21] MEDS: Z GUARD REMEDY 2 OZ OINT TP SCH ×4 (08:50→21:00)
[2016-11-21] MEDS: CLOTRIMAZOLE 1% 15 GM TUBE TP SCH ×2 (08:50→21:00)
[2016-11-21] MEDS: ENOXAPARIN SODIUM 40 MG/0.4 ML DISP.SYRIN SQ SCH (21:00)
[2016-11-21] MEDS: PROSOURCE / PROSTAT (PYXIS) 30 ML UDC GT SCH (21:00)
[2016-11-21] MEDS: POLYETHYLENE GLYCOL 3350 17 GM POWD.PACK GT SCH (21:00)
[2016-11-21] MEDS: CRANBERRY GT SCH (21:59)
[2016-11-21] MEDS: ATORVASTATIN CALCIUM 20MG TABLET GT SCH (22:05)
[2016-11-21] MEDS: MULTIVIT, IRON, MIN NO. 8, FA 1 TAB GT SCH (22:24)
[2016-11-22] MEDS: HYDROCODONE/APAP 5/325MG 1 EACH TABLET GT PRN (01:23)
[2016-11-22 07:58] VITALS: BP 125/79
[2016-11-22] MEDS: ACIDOPHILUS/BULGARICUS 1 EACH TAB.CHEW GT SCH ×3 (09:27→17:10)
[2016-11-22] MEDS: GABAPENTIN 300 MG CAPSULE GT SCH ×3 (09:27→17:10)
[2016-11-22] MEDS: CALCIUM CARBONATE 500 MG TAB.CHEW GT SCH ×3 (09:27→17:10)
[2016-11-22] MEDS: CALCITRIOL 0.25 MCG CAPSULE PO SCH (09:27)
[2016-11-22] MEDS: BACLOFEN (10 MG) 10 MG TABLET GT SCH ×4 (09:27→21:41)
[2016-11-22] MEDS: MINERAL OIL/PETROL OINT 396 GM JAR TP SCH ×3 (09:27→17:10)
[2016-11-22] MEDS: ASCORBIC ACID 500 MG TABLET GT SCH ×2 (09:27→17:10)
[2016-11-22] MEDS: ESCITALOPRAM OXALATE (10 MG) 10 MG TABLET GT SCH (09:27)
[2016-11-22] MEDS: FAMOTIDINE (20 MG) 20 MG TABLET GT SCH ×2 (09:27→21:41)
[2016-11-22] MEDS: METOPROLOL TARTRATE 25 MG TABLET GT SCH ×2 (09:27→17:10)
[2016-11-22] MEDS: CLOPIDOGREL BISULFATE 75 MG TABLET PO SCH (09:27)
[2016-11-22] MEDS: HYDROCODONE/APAP 10/325MG 1 EA TABLET GT SCH ×2 (10:49→22:00)
--- NOTE | 2016-11-22 11:10 | NUR ---
Made a follow-up call with [facility] pharmacy regarding [place] 10-325 mg. delivery, Spoke with Sofy, she stated that she will place a stat order and i there is a problem she will call this nurse. According to Sofy she does not see any note in the profile indicating that it is not covered.
[2016-11-22] MEDS: HYDROGEL DRESSING 90 GM TUBE TP SCH ×4 (11:15→21:43)
[2016-11-22] MEDS: HYDROGEN PEROXIDE 480 ML BOTTLE TP SCH ×2 (11:15→21:44)
[2016-11-22] MEDS: Z GUARD REMEDY 2 OZ OINT TP SCH ×4 (11:15→21:44)
[2016-11-22] MEDS: CLOTRIMAZOLE 1% 15 GM TUBE TP SCH ×2 (11:15→21:44)
[2016-11-22] MEDS: Z GUARD REMEDY 4 OZ OINT TP SCH ×2 (11:15→21:44)
[2016-11-22] MEDS: GENTAMICIN 0.1% OINT 15 GM TUBE TP SCH ×4 (11:15→21:43)
[2016-11-22 20:41] VITALS: BP 111/74
[2016-11-22] MEDS: CRANBERRY GT SCH (21:39)
[2016-11-22] MEDS: POLYETHYLENE GLYCOL 3350 17 GM POWD.PACK GT SCH (21:41)
[2016-11-22] MEDS: MULTIVIT, IRON, MIN NO. 8, FA 1 TAB GT SCH (21:42)
[2016-11-22] MEDS: PROSOURCE / PROSTAT (PYXIS) 30 ML UDC GT SCH (21:42)
[2016-11-22] MEDS: ENOXAPARIN SODIUM 40 MG/0.4 ML DISP.SYRIN SQ SCH (21:43)
[2016-11-22] MEDS: ATORVASTATIN CALCIUM 20MG TABLET GT SCH (21:44)
[2016-11-23] MEDS: HYDROCODONE/APAP 5/325MG 1 EACH TABLET GT PRN (01:31)
[2016-11-23 07:41] VITALS: BP 111/69
[2016-11-23] MEDS: OXYCODONE GT PRN (09:13)
[2016-11-23] MEDS: APAP GT PRN (09:13)
[2016-11-23] MEDS: BACLOFEN (10 MG) 10 MG TABLET GT SCH ×4 (09:19→21:29)
[2016-11-23] MEDS: ACIDOPHILUS/BULGARICUS 1 EACH TAB.CHEW GT SCH ×3 (09:19→17:00)
[2016-11-23] MEDS: ESCITALOPRAM OXALATE (10 MG) 10 MG TABLET GT SCH (09:19)
[2016-11-23] MEDS: CALCITRIOL 0.25 MCG CAPSULE PO SCH (09:20)
[2016-11-23] MEDS: GABAPENTIN 300 MG CAPSULE GT SCH ×3 (09:20→17:00)
[2016-11-23] MEDS: CLOPIDOGREL BISULFATE 75 MG TABLET PO SCH (09:20)
[2016-11-23] MEDS: FAMOTIDINE (20 MG) 20 MG TABLET GT SCH ×2 (09:20→21:29)
[2016-11-23] MEDS: METOPROLOL TARTRATE 25 MG TABLET GT SCH ×2 (09:20→17:00)
[2016-11-23] MEDS: ASCORBIC ACID 500 MG TABLET GT SCH ×2 (09:20→17:00)
[2016-11-23] MEDS: CALCIUM CARBONATE 500 MG TAB.CHEW GT SCH ×3 (09:20→17:00)
[2016-11-23] MEDS: MINERAL OIL/PETROL OINT 396 GM JAR TP SCH ×3 (09:20→17:00)
--- NOTE | 2016-11-23 10:24 | NUR ---
Informed by charge nurse that resident has been stating his tooth hurts at times. SW spoke to resident who stated that his lower left tooth hurts at times but that it was not currently hurting. He did not express an emergent need. SW stated that the dentist will be coming on December 05, 2016 or if he wanted SW to call the dentist before that and he stated that he can wait until this time. Kwzzgn-zk-die informed. Informed charge nurse.
[2016-11-23] MEDS: HYDROCODONE/APAP 10/325MG 1 EA TABLET GT SCH ×2 (12:21→21:29)
[2016-11-23] MEDS: HYDROGEL DRESSING 90 GM TUBE TP SCH ×4 (13:30→21:30)
[2016-11-23] MEDS: CLOTRIMAZOLE 1% 15 GM TUBE TP SCH ×2 (13:30→21:30)
[2016-11-23] MEDS: Z GUARD REMEDY 4 OZ OINT TP SCH ×2 (13:30→21:31)
[2016-11-23] MEDS: Z GUARD REMEDY 2 OZ OINT TP SCH ×4 (13:30→21:30)
[2016-11-23] MEDS: GENTAMICIN 0.1% OINT 15 GM TUBE TP SCH ×4 (13:30→21:30)
[2016-11-23] MEDS: HYDROGEN PEROXIDE 480 ML BOTTLE TP SCH ×2 (13:30→21:30)
[2016-11-23 20:35] VITALS: BP 123/72
[2016-11-23] MEDS: POLYETHYLENE GLYCOL 3350 17 GM POWD.PACK GT SCH (21:29)
[2016-11-23] MEDS: CRANBERRY GT SCH (21:29)
[2016-11-23] MEDS: MULTIVIT, IRON, MIN NO. 8, FA 1 TAB GT SCH (21:29)
[2016-11-23] MEDS: PROSOURCE / PROSTAT (PYXIS) 30 ML UDC GT SCH (21:29)
[2016-11-23] MEDS: ENOXAPARIN SODIUM 40 MG/0.4 ML DISP.SYRIN SQ SCH (21:30)
[2016-11-23] MEDS: ATORVASTATIN CALCIUM 20MG TABLET GT SCH (21:31)
[2016-11-24 09:20] VITALS: BP 130/79
[2016-11-24] MEDS: BACLOFEN (10 MG) 10 MG TABLET GT SCH ×4 (09:38→21:55)
[2016-11-24] MEDS: ACIDOPHILUS/BULGARICUS 1 EACH TAB.CHEW GT SCH ×3 (09:38→17:00)
[2016-11-24] MEDS: ESCITALOPRAM OXALATE (10 MG) 10 MG TABLET GT SCH (09:38)
[2016-11-24] MEDS: GABAPENTIN 300 MG CAPSULE GT SCH ×3 (09:39→17:00)
[2016-11-24] MEDS: METOPROLOL TARTRATE 25 MG TABLET GT SCH ×2 (09:39→17:00)
[2016-11-24] MEDS: CALCIUM CARBONATE 500 MG TAB.CHEW GT SCH ×3 (09:40→17:00)
[2016-11-24] MEDS: CLOPIDOGREL BISULFATE 75 MG TABLET PO SCH (09:40)
[2016-11-24] MEDS: MINERAL OIL/PETROL OINT 396 GM JAR TP SCH ×3 (09:40→17:00)
[2016-11-24] MEDS: ASCORBIC ACID 500 MG TABLET GT SCH ×2 (09:40→17:00)
[2016-11-24] MEDS: FAMOTIDINE (20 MG) 20 MG TABLET GT SCH ×2 (09:40→21:56)
[2016-11-24] MEDS: CALCITRIOL 0.25 MCG CAPSULE PO SCH (09:40)
[2016-11-24] MEDS: CLOTRIMAZOLE 1% 15 GM TUBE TP SCH ×2 (09:41→21:57)
[2016-11-24] MEDS: HYDROGEN PEROXIDE 480 ML BOTTLE TP SCH ×2 (09:41→21:57)
[2016-11-24] MEDS: Z GUARD REMEDY 4 OZ OINT TP SCH ×2 (09:41→21:57)
[2016-11-24] MEDS: Z GUARD REMEDY 2 OZ OINT TP SCH ×4 (09:41→21:57)
[2016-11-24] MEDS: HYDROCODONE/APAP 10/325MG 1 EA TABLET GT SCH ×2 (10:00→21:56)
[2016-11-24] MEDS: GENTAMICIN 0.1% OINT 15 GM TUBE TP SCH ×4 (14:30→21:57)
[2016-11-24] MEDS: HYDROGEL DRESSING 90 GM TUBE TP SCH ×4 (14:30→21:56)
[2016-11-24 19:34] VITALS: BP 108/74
[2016-11-24] MEDS: POLYETHYLENE GLYCOL 3350 17 GM POWD.PACK GT SCH (21:55)
[2016-11-24] MEDS: CRANBERRY GT SCH (21:55)
[2016-11-24] MEDS: MULTIVIT, IRON, MIN NO. 8, FA 1 TAB GT SCH (21:56)
[2016-11-24] MEDS: PROSOURCE / PROSTAT (PYXIS) 30 ML UDC GT SCH (21:56)
[2016-11-24] MEDS: ENOXAPARIN SODIUM 40 MG/0.4 ML DISP.SYRIN SQ SCH (21:56)
[2016-11-24] MEDS: ATORVASTATIN CALCIUM 20MG TABLET GT SCH (21:57)
[2016-11-25 07:42] VITALS: BP 110/69
[2016-11-25] MEDS: ACIDOPHILUS/BULGARICUS 1 EACH TAB.CHEW GT SCH ×3 (08:20→17:42)
[2016-11-25] MEDS: BACLOFEN (10 MG) 10 MG TABLET GT SCH ×4 (08:21→21:55)
[2016-11-25] MEDS: ESCITALOPRAM OXALATE (10 MG) 10 MG TABLET GT SCH (08:21)
[2016-11-25] MEDS: METOPROLOL TARTRATE 25 MG TABLET GT SCH ×2 (08:23→17:46)
[2016-11-25] MEDS: FAMOTIDINE (20 MG) 20 MG TABLET GT SCH ×2 (08:24→21:55)
[2016-11-25] MEDS: GABAPENTIN 300 MG CAPSULE GT SCH ×3 (08:24→17:42)
[2016-11-25] MEDS: CALCITRIOL 0.25 MCG CAPSULE PO SCH (08:25)
[2016-11-25] MEDS: ASCORBIC ACID 500 MG TABLET GT SCH ×2 (08:25→17:45)
[2016-11-25] MEDS: CALCIUM CARBONATE 500 MG TAB.CHEW GT SCH ×3 (08:25→17:45)
[2016-11-25] MEDS: CLOPIDOGREL BISULFATE 75 MG TABLET PO SCH (08:25)
[2016-11-25] MEDS: HYDROCODONE/APAP 10/325MG 1 EA TABLET GT SCH ×2 (10:40→21:55)
[2016-11-25] MEDS: HYDROGEN PEROXIDE 480 ML BOTTLE TP SCH ×2 (11:15→21:55)
[2016-11-25] MEDS: CLOTRIMAZOLE 1% 15 GM TUBE TP SCH ×2 (11:15→21:55)
[2016-11-25] MEDS: Z GUARD REMEDY 2 OZ OINT TP SCH ×4 (11:15→21:55)
[2016-11-25] MEDS: MINERAL OIL/PETROL OINT 396 GM JAR TP SCH ×2 (11:15→17:00)
[2016-11-25] MEDS: HYDROGEL DRESSING 90 GM TUBE TP SCH ×4 (11:15→21:55)
[2016-11-25] MEDS: Z GUARD REMEDY 4 OZ OINT TP SCH ×2 (11:15→21:55)
[2016-11-25] MEDS: GENTAMICIN 0.1% OINT 15 GM TUBE TP SCH ×4 (11:15→21:55)
--- NOTE | 2016-11-25 12:06 | NUR ---
Spoke to the resident's esnnyd-xr-agr Vilma and asked if she would like for resident to receive flu vaccine. She stated that it was okay to give resident the flu vaccine. Charge nurse informed.
--- NOTE | 2016-11-25 14:23 | NUR ---
IDT meeting held, family unable to attend the meeting. Reviewed current medication orders, treatment and labs. Resident will be seen by dentist December 05, 2016 for lower left tooth pain. Per resident, pain is not constant and able to tolerate with times of no pain. Resident will remain on the same dosage of Lexapro. No new orders for resident given during IDT meeting.
[2016-11-25 19:15] VITALS: BP 120/67
[2016-11-25] MEDS: PROSOURCE / PROSTAT (PYXIS) 30 ML UDC GT SCH (21:55)
[2016-11-25] MEDS: CRANBERRY GT SCH (21:55)
[2016-11-25] MEDS: ENOXAPARIN SODIUM 40 MG/0.4 ML DISP.SYRIN SQ SCH (21:55)
[2016-11-25] MEDS: MULTIVIT, IRON, MIN NO. 8, FA 1 TAB GT SCH (21:55)
[2016-11-25] MEDS: POLYETHYLENE GLYCOL 3350 17 GM POWD.PACK GT SCH (21:55)
[2016-11-25] MEDS: ATORVASTATIN CALCIUM 20MG TABLET GT SCH (22:03)
[2016-11-26 07:41] VITALS: BP 109/68
[2016-11-26] MEDS: BACLOFEN (10 MG) 10 MG TABLET GT SCH ×4 (09:28→21:57)
[2016-11-26] MEDS: METOPROLOL TARTRATE 25 MG TABLET GT SCH ×2 (09:28→17:39)
[2016-11-26] MEDS: ESCITALOPRAM OXALATE (10 MG) 10 MG TABLET GT SCH (09:28)
[2016-11-26] MEDS: ACIDOPHILUS/BULGARICUS 1 EACH TAB.CHEW GT SCH ×3 (09:28→17:38)
[2016-11-26] MEDS: GABAPENTIN 300 MG CAPSULE GT SCH ×3 (09:28→17:39)
[2016-11-26] MEDS: ASCORBIC ACID 500 MG TABLET GT SCH ×2 (09:29→17:39)
[2016-11-26] MEDS: FAMOTIDINE (20 MG) 20 MG TABLET GT SCH ×2 (09:29→21:57)
[2016-11-26] MEDS: CALCIUM CARBONATE 500 MG TAB.CHEW GT SCH ×3 (09:29→17:39)
[2016-11-26] MEDS: HYDROCODONE/APAP 10/325MG 1 EA TABLET GT SCH ×2 (09:29→21:00)
[2016-11-26] MEDS: CLOPIDOGREL BISULFATE 75 MG TABLET PO SCH (09:30)
[2016-11-26] MEDS: CALCITRIOL 0.25 MCG CAPSULE PO SCH (09:30)
[2016-11-26] MEDS: MINERAL OIL/PETROL OINT 396 GM JAR TP SCH ×3 (09:30→17:39)
[2016-11-26] MEDS: HYDROGEL DRESSING 90 GM TUBE TP SCH ×4 (10:30→21:57)
[2016-11-26] MEDS: Z GUARD REMEDY 4 OZ OINT TP SCH ×2 (10:30→21:58)
[2016-11-26] MEDS: CLOTRIMAZOLE 1% 15 GM TUBE TP SCH ×2 (10:30→21:58)
[2016-11-26] MEDS: GENTAMICIN 0.1% OINT 15 GM TUBE TP SCH ×4 (10:30→21:58)
[2016-11-26] MEDS: Z GUARD REMEDY 2 OZ OINT TP SCH ×4 (10:30→21:58)
[2016-11-26] MEDS: HYDROGEN PEROXIDE 480 ML BOTTLE TP SCH ×2 (12:30→21:58)
[2016-11-26 19:37] VITALS: BP 121/73
[2016-11-26] MEDS: POLYETHYLENE GLYCOL 3350 17 GM POWD.PACK GT SCH (21:57)
[2016-11-26] MEDS: MULTIVIT, IRON, MIN NO. 8, FA 1 TAB GT SCH (21:57)
[2016-11-26] MEDS: CRANBERRY GT SCH (21:57)
[2016-11-26] MEDS: ENOXAPARIN SODIUM 40 MG/0.4 ML DISP.SYRIN SQ SCH (21:57)
[2016-11-26] MEDS: PROSOURCE / PROSTAT (PYXIS) 30 ML UDC GT SCH (21:57)
[2016-11-26] MEDS: ATORVASTATIN CALCIUM 20MG TABLET GT SCH (21:58)
[2016-11-27 08:01] VITALS: BP 110/64
[2016-11-27] MEDS: BACLOFEN (10 MG) 10 MG TABLET GT SCH ×4 (09:28→21:55)
[2016-11-27] MEDS: HYDROCODONE/APAP 10/325MG 1 EA TABLET GT SCH ×2 (09:28→21:56)
[2016-11-27] MEDS: METOPROLOL TARTRATE 25 MG TABLET GT SCH ×2 (09:28→16:46)
[2016-11-27] MEDS: GABAPENTIN 300 MG CAPSULE GT SCH ×3 (09:28→16:46)
[2016-11-27] MEDS: ACIDOPHILUS/BULGARICUS 1 EACH TAB.CHEW GT SCH ×3 (09:28→16:46)
[2016-11-27] MEDS: ESCITALOPRAM OXALATE (10 MG) 10 MG TABLET GT SCH (09:28)
[2016-11-27] MEDS: FAMOTIDINE (20 MG) 20 MG TABLET GT SCH ×2 (09:28→21:56)
[2016-11-27] MEDS: CLOPIDOGREL BISULFATE 75 MG TABLET PO SCH (09:29)
[2016-11-27] MEDS: GENTAMICIN 0.1% OINT 15 GM TUBE TP SCH ×4 (09:29→21:56)
[2016-11-27] MEDS: CALCIUM CARBONATE 500 MG TAB.CHEW GT SCH ×3 (09:29→16:46)
[2016-11-27] MEDS: HYDROGEL DRESSING 90 GM TUBE TP SCH ×4 (09:29→21:56)
[2016-11-27] MEDS: CALCITRIOL 0.25 MCG CAPSULE PO SCH (09:29)
[2016-11-27] MEDS: MINERAL OIL/PETROL OINT 396 GM JAR TP SCH ×3 (09:29→16:46)
[2016-11-27] MEDS: ASCORBIC ACID 500 MG TABLET GT SCH ×2 (09:29→16:46)
[2016-11-27] MEDS: Z GUARD REMEDY 4 OZ OINT TP SCH ×2 (09:30→21:57)
[2016-11-27] MEDS: Z GUARD REMEDY 2 OZ OINT TP SCH ×4 (09:30→21:57)
[2016-11-27] MEDS: HYDROGEN PEROXIDE 480 ML BOTTLE TP SCH ×2 (09:30→21:56)
[2016-11-27] MEDS: CLOTRIMAZOLE 1% 15 GM TUBE TP SCH ×2 (09:30→21:56)
[2016-11-27] MEDS: HYDROCODONE/APAP 5/325MG 1 EACH TABLET GT PRN (16:00)
[2016-11-27] MEDS ORDERED: FLU VACC QS 2017-18(36MOS+)/PF 0.5 ML DISP.SYRIN IM ONE (17:00)
[2016-11-27 19:31] VITALS: BP 108/72
[2016-11-27] MEDS: ENOXAPARIN SODIUM 40 MG/0.4 ML DISP.SYRIN SQ SCH (21:00)
--- NOTE | 2016-11-27 21:00 | NUR ---
RN NOTES Flu vaccine given with no A/R noted. Will continue to monitor.
[2016-11-27] MEDS: CRANBERRY GT SCH (21:55)
[2016-11-27] MEDS: POLYETHYLENE GLYCOL 3350 17 GM POWD.PACK GT SCH (21:55)
[2016-11-27] MEDS: PROSOURCE / PROSTAT (PYXIS) 30 ML UDC GT SCH (21:56)
[2016-11-27] MEDS: MULTIVIT, IRON, MIN NO. 8, FA 1 TAB GT SCH (21:56)
[2016-11-27] MEDS: ATORVASTATIN CALCIUM 20MG TABLET GT SCH (21:57)
[2016-11-28] MEDS: HYDROCODONE/APAP 5/325MG 1 EACH TABLET GT PRN (04:02)
[2016-11-28] MEDS: GABAPENTIN 300 MG CAPSULE GT SCH ×3 (09:17→17:36)
[2016-11-28] MEDS: ESCITALOPRAM OXALATE (10 MG) 10 MG TABLET GT SCH (09:17)
[2016-11-28] MEDS: ACIDOPHILUS/BULGARICUS 1 EACH TAB.CHEW GT SCH ×3 (09:17→17:36)
[2016-11-28] MEDS: METOPROLOL TARTRATE 25 MG TABLET GT SCH ×2 (09:17→17:36)
[2016-11-28] MEDS: BACLOFEN (10 MG) 10 MG TABLET GT SCH ×4 (09:17→21:00)
[2016-11-28] MEDS: HYDROCODONE/APAP 10/325MG 1 EA TABLET GT SCH ×2 (09:18→23:15)
[2016-11-28] MEDS: CLOPIDOGREL BISULFATE 75 MG TABLET PO SCH (09:18)
[2016-11-28] MEDS: HYDROGEN PEROXIDE 480 ML BOTTLE TP SCH ×2 (09:18→21:00)
[2016-11-28] MEDS: CALCITRIOL 0.25 MCG CAPSULE PO SCH (09:18)
[2016-11-28] MEDS: FAMOTIDINE (20 MG) 20 MG TABLET GT SCH ×2 (09:18→22:35)
[2016-11-28] MEDS: ASCORBIC ACID 500 MG TABLET GT SCH ×2 (09:18→17:36)
[2016-11-28] MEDS: MINERAL OIL/PETROL OINT 396 GM JAR TP SCH ×3 (09:18→17:36)
[2016-11-28] MEDS: Z GUARD REMEDY 2 OZ OINT TP SCH ×4 (09:18→21:00)
[2016-11-28] MEDS: CALCIUM CARBONATE 500 MG TAB.CHEW GT SCH ×3 (09:18→17:36)
[2016-11-28] MEDS: GENTAMICIN 0.1% OINT 15 GM TUBE TP SCH ×4 (09:18→21:00)
[2016-11-28] MEDS: HYDROGEL DRESSING 90 GM TUBE TP SCH ×4 (09:18→22:33)
[2016-11-28] MEDS: CLOTRIMAZOLE 1% 15 GM TUBE TP SCH ×2 (09:18→21:00)
[2016-11-28] MEDS: Z GUARD REMEDY 4 OZ OINT TP SCH ×2 (09:19→21:00)
[2016-11-28 14:38] VITALS: BP 113/75
--- NOTE | 2016-11-28 18:11 | NUR ---
No adverse reaction to flu vaccine noted.
--- NOTE | 2016-11-28 19:20 | NUR ---
FERNANDA Carmona reported that pt was making sexually inappropriate comments and questions to her. Discussed the issue with the pt. He said he will stop making such comments.
[2016-11-28 20:06] VITALS: BP 103/63
[2016-11-28] MEDS: ENOXAPARIN SODIUM 40 MG/0.4 ML DISP.SYRIN SQ SCH (21:00)
[2016-11-28] MEDS: PROSOURCE / PROSTAT (PYXIS) 30 ML UDC GT SCH (22:31)
[2016-11-28] MEDS: POLYETHYLENE GLYCOL 3350 17 GM POWD.PACK GT SCH (22:36)
[2016-11-28] MEDS: CRANBERRY GT SCH (22:37)
[2016-11-28] MEDS: ATORVASTATIN CALCIUM 20MG TABLET GT SCH (22:39)
[2016-11-28] MEDS: MULTIVIT, IRON, MIN NO. 8, FA 1 TAB GT SCH (22:42)
--- NOTE | 2016-11-29 06:00 | NUR ---
PT DRESSING CHANGES DONE LATE, PT GET UPSET WHY DONE LATE AND WANTED TO SLEEP FOR MORE HOURS TONIGHT.OTHERWISE NO SIGNIFICANT CHANGES ,VSS,AFEBRILE.
[2016-11-29 08:03] VITALS: BP 166/86
[2016-11-29] MEDS: ACIDOPHILUS/BULGARICUS 1 EACH TAB.CHEW GT SCH ×3 (09:26→17:51)
[2016-11-29] MEDS: ESCITALOPRAM OXALATE (10 MG) 10 MG TABLET GT SCH (09:26)
[2016-11-29] MEDS: BACLOFEN (10 MG) 10 MG TABLET GT SCH ×4 (09:26→21:25)
[2016-11-29] MEDS: ASCORBIC ACID 500 MG TABLET GT SCH ×2 (09:27→17:52)
[2016-11-29] MEDS: HYDROGEN PEROXIDE 480 ML BOTTLE TP SCH ×2 (09:27→21:27)
[2016-11-29] MEDS: METOPROLOL TARTRATE 25 MG TABLET GT SCH ×2 (09:27→17:51)
[2016-11-29] MEDS: HYDROCODONE/APAP 10/325MG 1 EA TABLET GT SCH ×2 (09:27→21:26)
[2016-11-29] MEDS: FAMOTIDINE (20 MG) 20 MG TABLET GT SCH ×2 (09:27→21:25)
[2016-11-29] MEDS: CALCITRIOL 0.25 MCG CAPSULE PO SCH (09:27)
[2016-11-29] MEDS: GENTAMICIN 0.1% OINT 15 GM TUBE TP SCH ×4 (09:27→21:26)
[2016-11-29] MEDS: GABAPENTIN 300 MG CAPSULE GT SCH ×3 (09:27→17:51)
[2016-11-29] MEDS: CLOTRIMAZOLE 1% 15 GM TUBE TP SCH ×2 (09:27→21:27)
[2016-11-29] MEDS: HYDROGEL DRESSING 90 GM TUBE TP SCH ×4 (09:27→21:26)
[2016-11-29] MEDS: CALCIUM CARBONATE 500 MG TAB.CHEW GT SCH ×3 (09:27→17:52)
[2016-11-29] MEDS: MINERAL OIL/PETROL OINT 396 GM JAR TP SCH ×3 (09:27→17:52)
[2016-11-29] MEDS: CLOPIDOGREL BISULFATE 75 MG TABLET PO SCH (09:27)
[2016-11-29] MEDS: Z GUARD REMEDY 2 OZ OINT TP SCH ×4 (09:28→21:27)
[2016-11-29] MEDS: Z GUARD REMEDY 4 OZ OINT TP SCH ×2 (09:28→21:27)
--- NOTE | 2016-11-29 19:05 | NUR ---
No adverse reaction to flu vaccine noted.
[2016-11-29 19:39] VITALS: BP 132/67
[2016-11-29] MEDS: POLYETHYLENE GLYCOL 3350 17 GM POWD.PACK GT SCH (21:25)
[2016-11-29] MEDS: CRANBERRY GT SCH (21:25)
[2016-11-29] MEDS: PROSOURCE / PROSTAT (PYXIS) 30 ML UDC GT SCH (21:26)
[2016-11-29] MEDS: MULTIVIT, IRON, MIN NO. 8, FA 1 TAB GT SCH (21:26)
[2016-11-29] MEDS: ENOXAPARIN SODIUM 40 MG/0.4 ML DISP.SYRIN SQ SCH (21:26)
[2016-11-29] MEDS: ATORVASTATIN CALCIUM 20MG TABLET GT SCH (21:27)
[2016-11-30] MEDS: HYDROCODONE/APAP 5/325MG 1 EACH TABLET GT PRN (03:32)
[2016-11-30 08:12] VITALS: BP 107/63
[2016-11-30] MEDS: CLOPIDOGREL BISULFATE 75 MG TABLET PO SCH (09:00)
[2016-11-30] MEDS: ACIDOPHILUS/BULGARICUS 1 EACH TAB.CHEW GT SCH ×3 (09:00→16:48)
[2016-11-30] MEDS: METOPROLOL TARTRATE 25 MG TABLET GT SCH ×2 (09:00→16:48)
[2016-11-30] MEDS: CALCITRIOL 0.25 MCG CAPSULE PO SCH (09:00)
[2016-11-30] MEDS: MINERAL OIL/PETROL OINT 396 GM JAR TP SCH ×3 (09:00→16:49)
[2016-11-30] MEDS: FAMOTIDINE (20 MG) 20 MG TABLET GT SCH ×2 (09:00→21:43)
[2016-11-30] MEDS: HYDROCODONE/APAP 10/325MG 1 EA TABLET GT SCH ×2 (09:00→21:43)
[2016-11-30] MEDS: GABAPENTIN 300 MG CAPSULE GT SCH ×3 (09:00→16:49)
[2016-11-30] MEDS: ASCORBIC ACID 500 MG TABLET GT SCH ×2 (09:00→16:49)
[2016-11-30] MEDS: ESCITALOPRAM OXALATE (10 MG) 10 MG TABLET GT SCH (09:00)
[2016-11-30] MEDS: CALCIUM CARBONATE 500 MG TAB.CHEW GT SCH ×3 (09:00→16:49)
[2016-11-30] MEDS: BACLOFEN (10 MG) 10 MG TABLET GT SCH ×4 (09:00→21:42)
[2016-11-30] MEDS: HYDROGEL DRESSING 90 GM TUBE TP SCH ×4 (10:00→22:20)
[2016-11-30] MEDS: Z GUARD REMEDY 4 OZ OINT TP SCH ×2 (10:00→22:20)
[2016-11-30] MEDS: GENTAMICIN 0.1% OINT 15 GM TUBE TP SCH ×4 (10:00→22:20)
[2016-11-30] MEDS: CLOTRIMAZOLE 1% 15 GM TUBE TP SCH ×2 (10:00→22:20)
[2016-11-30] MEDS: HYDROGEN PEROXIDE 480 ML BOTTLE TP SCH ×2 (10:00→22:20)
[2016-11-30] MEDS: Z GUARD REMEDY 2 OZ OINT TP SCH ×4 (10:00→22:20)
[2016-11-30 20:05] VITALS: BP 102/58
[2016-11-30] MEDS: POLYETHYLENE GLYCOL 3350 17 GM POWD.PACK GT SCH (21:42)
[2016-11-30] MEDS: CRANBERRY GT SCH (21:42)
[2016-11-30] MEDS: MULTIVIT, IRON, MIN NO. 8, FA 1 TAB GT SCH (21:43)
[2016-11-30] MEDS: ENOXAPARIN SODIUM 40 MG/0.4 ML DISP.SYRIN SQ SCH (21:43)
[2016-11-30] MEDS: PROSOURCE / PROSTAT (PYXIS) 30 ML UDC GT SCH (21:43)
[2016-11-30] MEDS: ATORVASTATIN CALCIUM 20MG TABLET GT SCH (21:44)
[2016-12-01] MEDS: HYDROCODONE/APAP 5/325MG 1 EACH TABLET GT PRN (07:14)
--- NOTE | 2016-12-01 07:14 | NUR ---
RETAIL ACCOUNT SPECIALIST NOTE Patient c/o of pain on sacral area 08/29, Comfort measure provided, repositioned, ineffective. PRN [place] 5/325 given via GT. Continue on comfort measure and close monitoring.
[2016-12-01 08:03] VITALS: BP 136/72
[2016-12-01] MEDS: METOPROLOL TARTRATE 25 MG TABLET GT SCH ×2 (09:00→17:00)
[2016-12-01] MEDS: BACLOFEN (10 MG) 10 MG TABLET GT SCH ×4 (09:00→21:30)
[2016-12-01] MEDS: Z GUARD REMEDY 2 OZ OINT TP SCH ×4 (09:00→22:00)
[2016-12-01] MEDS: HYDROCODONE/APAP 10/325MG 1 EA TABLET GT SCH ×2 (09:00→21:30)
[2016-12-01] MEDS: FAMOTIDINE (20 MG) 20 MG TABLET GT SCH ×2 (09:00→21:30)
[2016-12-01] MEDS: GENTAMICIN 0.1% OINT 15 GM TUBE TP SCH ×3 (09:00→22:00)
[2016-12-01] MEDS: HYDROGEN PEROXIDE 480 ML BOTTLE TP SCH ×2 (09:00→22:00)
[2016-12-01] MEDS: ESCITALOPRAM OXALATE (10 MG) 10 MG TABLET GT SCH (09:00)
[2016-12-01] MEDS: Z GUARD REMEDY 4 OZ OINT TP SCH (09:00)
[2016-12-01] MEDS: HYDROGEL DRESSING 90 GM TUBE TP SCH ×3 (09:00→22:00)
[2016-12-01] MEDS: CALCIUM CARBONATE 500 MG TAB.CHEW GT SCH ×3 (09:00→17:50)
[2016-12-01] MEDS: MINERAL OIL/PETROL OINT 396 GM JAR TP SCH ×3 (09:00→17:50)
[2016-12-01] MEDS: CLOPIDOGREL BISULFATE 75 MG TABLET PO SCH (09:00)
[2016-12-01] MEDS: CALCITRIOL 0.25 MCG CAPSULE PO SCH (09:00)
[2016-12-01] MEDS: ACIDOPHILUS/BULGARICUS 1 EACH TAB.CHEW GT SCH ×3 (09:00→17:50)
[2016-12-01] MEDS: ASCORBIC ACID 500 MG TABLET GT SCH ×2 (09:00→17:50)
[2016-12-01] MEDS: GABAPENTIN 300 MG CAPSULE GT SCH ×3 (09:00→17:50)
[2016-12-01] MEDS: CLOTRIMAZOLE 1% 15 GM TUBE TP SCH ×2 (09:00→22:00)
[2016-12-01] MEDS ORDERED: GENTAMICIN 0.1% OINT 15 GM TUBE TP PRN (12:00)
[2016-12-01] MEDS ORDERED: HYDROGEL DRESSING 90 GM TUBE TP PRN (12:00)
[2016-12-01] MEDS ORDERED: Z GUARD REMEDY 4 OZ OINT TP PRN (12:00)
--- NOTE | 2016-12-01 16:00 | NUR ---
Met with the patient several times today. He was in good spirits and provided a list of items that he would like his lamhqb-cc-zth to purchase. Informed oswwva-de-xbm of said items and stated she will visit with him tomorrow 12/03/2016.
[2016-12-01 19:17] VITALS: BP 106/71
[2016-12-01] MEDS: POLYETHYLENE GLYCOL 3350 17 GM POWD.PACK GT SCH (21:30)
[2016-12-01] MEDS: CRANBERRY GT SCH (21:30)
[2016-12-01] MEDS: PROSOURCE / PROSTAT (PYXIS) 30 ML UDC GT SCH (21:30)
[2016-12-01] MEDS: ENOXAPARIN SODIUM 40 MG/0.4 ML DISP.SYRIN SQ SCH (21:30)
[2016-12-01] MEDS: MULTIVIT, IRON, MIN NO. 8, FA 1 TAB GT SCH (21:30)
[2016-12-01] MEDS: ATORVASTATIN CALCIUM 20MG TABLET GT SCH (22:06)
[2016-12-02] MEDS: HYDROCODONE/APAP 5/325MG 1 EACH TABLET GT PRN (06:32)
[2016-12-02 07:48] VITALS: BP 114/72
[2016-12-02] MEDS: ACIDOPHILUS/BULGARICUS 1 EACH TAB.CHEW GT SCH ×3 (08:31→17:00)
[2016-12-02] MEDS: ESCITALOPRAM OXALATE (10 MG) 10 MG TABLET GT SCH (08:31)
[2016-12-02] MEDS: BACLOFEN (10 MG) 10 MG TABLET GT SCH ×4 (08:32→21:32)
[2016-12-02] MEDS: METOPROLOL TARTRATE 25 MG TABLET GT SCH ×2 (08:33→17:00)
[2016-12-02] MEDS: GABAPENTIN 300 MG CAPSULE GT SCH ×3 (08:34→17:00)
[2016-12-02] MEDS: FAMOTIDINE (20 MG) 20 MG TABLET GT SCH ×2 (08:34→21:33)
[2016-12-02] MEDS: ASCORBIC ACID 500 MG TABLET GT SCH ×2 (08:35→17:00)
[2016-12-02] MEDS: CALCIUM CARBONATE 500 MG TAB.CHEW GT SCH ×3 (08:35→17:00)
[2016-12-02] MEDS: CLOPIDOGREL BISULFATE 75 MG TABLET PO SCH (08:36)
[2016-12-02] MEDS: CALCITRIOL 0.25 MCG CAPSULE PO SCH (08:36)
[2016-12-02] MEDS: HYDROCODONE/APAP 10/325MG 1 EA TABLET GT SCH ×2 (10:30→21:33)
[2016-12-02] MEDS: HYDROGEL DRESSING 90 GM TUBE TP SCH ×2 (11:00→22:00)
[2016-12-02] MEDS: Z GUARD REMEDY 2 OZ OINT TP SCH ×4 (11:00→22:00)
[2016-12-02] MEDS: MINERAL OIL/PETROL OINT 396 GM JAR TP SCH ×3 (11:00→17:00)
[2016-12-02] MEDS: GENTAMICIN 0.1% OINT 15 GM TUBE TP SCH ×2 (11:00→22:00)
[2016-12-02] MEDS: HYDROGEN PEROXIDE 480 ML BOTTLE TP SCH ×2 (11:00→22:00)
[2016-12-02] MEDS: CLOTRIMAZOLE 1% 15 GM TUBE TP SCH ×2 (11:00→22:00)
--- NOTE | 2016-12-02 11:05 | NUR ---
Seen by Dr. Bella, electrical engineering draftsperson with order to continue moisturizing BLE with A&D for skin maintenance. Orders noted and carried out.
[2016-12-02] MEDS: VITAMINS A AND D 56.7 GM TUBE TP SCH ×2 (11:30→22:00)
[2016-12-02 19:52] VITALS: BP 115/69
[2016-12-02] MEDS: CRANBERRY GT SCH (21:32)
[2016-12-02] MEDS: POLYETHYLENE GLYCOL 3350 17 GM POWD.PACK GT SCH (21:32)
[2016-12-02] MEDS: MULTIVIT, IRON, MIN NO. 8, FA 1 TAB GT SCH (21:33)
[2016-12-02] MEDS: PROSOURCE / PROSTAT (PYXIS) 30 ML UDC GT SCH (21:33)
[2016-12-02] MEDS: ENOXAPARIN SODIUM 40 MG/0.4 ML DISP.SYRIN SQ SCH (21:34)
[2016-12-02] MEDS: ATORVASTATIN CALCIUM 20MG TABLET GT SCH (22:00)
[2016-12-03 07:50] VITALS: BP 113/73
[2016-12-03] MEDS: ESCITALOPRAM OXALATE (10 MG) 10 MG TABLET GT SCH (08:51)
[2016-12-03] MEDS: BACLOFEN (10 MG) 10 MG TABLET GT SCH ×4 (08:51→21:00)
[2016-12-03] MEDS: ACIDOPHILUS/BULGARICUS 1 EACH TAB.CHEW GT SCH ×3 (08:51→16:35)
[2016-12-03] MEDS: GABAPENTIN 300 MG CAPSULE GT SCH ×3 (08:54→16:35)
[2016-12-03] MEDS: CLOPIDOGREL BISULFATE 75 MG TABLET PO SCH (08:54)
[2016-12-03] MEDS: FAMOTIDINE (20 MG) 20 MG TABLET GT SCH ×2 (08:54→21:00)
[2016-12-03] MEDS: METOPROLOL TARTRATE 25 MG TABLET GT SCH ×2 (08:54→16:35)
[2016-12-03] MEDS: CALCITRIOL 0.25 MCG CAPSULE PO SCH (08:54)
[2016-12-03] MEDS: CALCIUM CARBONATE 500 MG TAB.CHEW GT SCH ×3 (08:54→16:35)
[2016-12-03] MEDS: MINERAL OIL/PETROL OINT 396 GM JAR TP SCH ×3 (08:54→16:35)
[2016-12-03] MEDS: ASCORBIC ACID 500 MG TABLET GT SCH ×2 (08:54→16:35)
[2016-12-03] MEDS: HYDROCODONE/APAP 10/325MG 1 EA TABLET GT SCH ×2 (08:54→21:00)
[2016-12-03] MEDS: HYDROGEN PEROXIDE 480 ML BOTTLE TP SCH ×2 (10:00→21:00)
[2016-12-03] MEDS: HYDROGEL DRESSING 90 GM TUBE TP SCH ×2 (10:00→21:00)
[2016-12-03] MEDS: VITAMINS A AND D 56.7 GM TUBE TP SCH ×2 (10:00→21:00)
[2016-12-03] MEDS: Z GUARD REMEDY 2 OZ OINT TP SCH ×4 (10:00→21:00)
[2016-12-03] MEDS: GENTAMICIN 0.1% OINT 15 GM TUBE TP SCH ×2 (10:00→21:00)
[2016-12-03] MEDS: CLOTRIMAZOLE 1% 15 GM TUBE TP SCH ×2 (10:00→21:00)
--- NOTE | 2016-12-03 12:20 | NUR ---
Seen and examined by Dr. Walker, Resident has no concerns, Dr. Walker asked if his pain is managed, patient nod his head in agreement. NNO given at this time.
[2016-12-03 19:29] VITALS: BP 106/63
[2016-12-03] MEDS: CRANBERRY GT SCH (21:00)
[2016-12-03] MEDS: MULTIVIT, IRON, MIN NO. 8, FA 1 TAB GT SCH (21:00)
[2016-12-03] MEDS: POLYETHYLENE GLYCOL 3350 17 GM POWD.PACK GT SCH (21:00)
[2016-12-03] MEDS: ENOXAPARIN SODIUM 40 MG/0.4 ML DISP.SYRIN SQ SCH (21:00)
[2016-12-03] MEDS: PROSOURCE / PROSTAT (PYXIS) 30 ML UDC GT SCH (21:00)
[2016-12-03] MEDS: ATORVASTATIN CALCIUM 20MG TABLET GT SCH (22:18)
[2016-12-04] MEDS: HYDROCODONE/APAP 5/325MG 1 EACH TABLET GT PRN (04:17)
[2016-12-04] MEDS: FAMOTIDINE (20 MG) 20 MG TABLET GT SCH ×2 (08:06→21:00)
[2016-12-04] MEDS: ACIDOPHILUS/BULGARICUS 1 EACH TAB.CHEW GT SCH ×3 (08:06→17:46)
[2016-12-04] MEDS: CALCIUM CARBONATE 500 MG TAB.CHEW GT SCH ×3 (08:06→17:46)
[2016-12-04] MEDS: BACLOFEN (10 MG) 10 MG TABLET GT SCH ×4 (08:06→21:00)
[2016-12-04] MEDS: GABAPENTIN 300 MG CAPSULE GT SCH ×3 (08:06→17:46)
[2016-12-04] MEDS: ESCITALOPRAM OXALATE (10 MG) 10 MG TABLET GT SCH (08:06)
[2016-12-04] MEDS: CALCITRIOL 0.25 MCG CAPSULE PO SCH (08:07)
[2016-12-04] MEDS: ASCORBIC ACID 500 MG TABLET GT SCH ×2 (08:07→17:46)
[2016-12-04] MEDS: CLOPIDOGREL BISULFATE 75 MG TABLET PO SCH (08:07)
[2016-12-04] MEDS: MINERAL OIL/PETROL OINT 396 GM JAR TP SCH ×3 (09:00→17:00)
[2016-12-04] MEDS: CLOTRIMAZOLE 1% 15 GM TUBE TP SCH ×2 (09:00→21:00)
[2016-12-04] MEDS: GENTAMICIN 0.1% OINT 15 GM TUBE TP SCH ×2 (09:00→21:00)
[2016-12-04] MEDS: HYDROGEL DRESSING 90 GM TUBE TP SCH ×2 (09:00→21:00)
[2016-12-04] MEDS: VITAMINS A AND D 56.7 GM TUBE TP SCH ×2 (09:00→21:00)
[2016-12-04] MEDS: HYDROCODONE/APAP 10/325MG 1 EA TABLET GT SCH ×2 (09:00→21:00)
[2016-12-04] MEDS: Z GUARD REMEDY 2 OZ OINT TP SCH ×4 (09:00→21:00)
[2016-12-04] MEDS: METOPROLOL TARTRATE 25 MG TABLET GT SCH ×2 (09:00→17:46)
[2016-12-04] MEDS: HYDROGEN PEROXIDE 480 ML BOTTLE TP SCH ×2 (09:00→21:00)
[2016-12-04 10:50] VITALS: BP 129/70
[2016-12-04 19:08] VITALS: BP 116/70
[2016-12-04] MEDS: POLYETHYLENE GLYCOL 3350 17 GM POWD.PACK GT SCH (21:00)
[2016-12-04] MEDS: CRANBERRY GT SCH (21:00)
[2016-12-04] MEDS: MULTIVIT, IRON, MIN NO. 8, FA 1 TAB GT SCH (21:00)
[2016-12-04] MEDS: PROSOURCE / PROSTAT (PYXIS) 30 ML UDC GT SCH (21:00)
[2016-12-04] MEDS: ENOXAPARIN SODIUM 40 MG/0.4 ML DISP.SYRIN SQ SCH (21:00)
[2016-12-04] MEDS: ATORVASTATIN CALCIUM 20MG TABLET GT SCH (22:09)
[2016-12-05 08:14] VITALS: BP 124/77
[2016-12-05] MEDS: FAMOTIDINE (20 MG) 20 MG TABLET GT SCH ×2 (09:45→20:41)
[2016-12-05] MEDS: ACIDOPHILUS/BULGARICUS 1 EACH TAB.CHEW GT SCH ×3 (09:45→17:44)
[2016-12-05] MEDS: ASCORBIC ACID 500 MG TABLET GT SCH ×2 (09:45→17:44)
[2016-12-05] MEDS: GABAPENTIN 300 MG CAPSULE GT SCH ×3 (09:45→17:44)
[2016-12-05] MEDS: ESCITALOPRAM OXALATE (10 MG) 10 MG TABLET GT SCH (09:45)
[2016-12-05] MEDS: BACLOFEN (10 MG) 10 MG TABLET GT SCH ×4 (09:45→20:39)
[2016-12-05] MEDS: CALCIUM CARBONATE 500 MG TAB.CHEW GT SCH ×3 (09:45→17:44)
[2016-12-05] MEDS: HYDROCODONE/APAP 10/325MG 1 EA TABLET GT SCH ×2 (09:45→21:50)
[2016-12-05] MEDS: METOPROLOL TARTRATE 25 MG TABLET GT SCH ×2 (09:45→17:44)
[2016-12-05] MEDS: CLOTRIMAZOLE 1% 15 GM TUBE TP SCH ×2 (09:46→21:41)
[2016-12-05] MEDS: GENTAMICIN 0.1% OINT 15 GM TUBE TP SCH ×2 (09:46→21:41)
[2016-12-05] MEDS: MINERAL OIL/PETROL OINT 396 GM JAR TP SCH ×3 (09:46→17:44)
[2016-12-05] MEDS: HYDROGEN PEROXIDE 480 ML BOTTLE TP SCH ×2 (09:46→21:41)
[2016-12-05] MEDS: CALCITRIOL 0.25 MCG CAPSULE PO SCH (09:46)
[2016-12-05] MEDS: CLOPIDOGREL BISULFATE 75 MG TABLET PO SCH (09:46)
[2016-12-05] MEDS: VITAMINS A AND D 56.7 GM TUBE TP SCH ×2 (09:46→21:41)
[2016-12-05] MEDS: Z GUARD REMEDY 2 OZ OINT TP SCH ×4 (09:46→21:41)
[2016-12-05] MEDS: HYDROGEL DRESSING 90 GM TUBE TP SCH ×2 (09:46→21:41)
--- NOTE | 2016-12-05 09:55 | NUR ---
Seen by Dr. Peter DDS and assessed left lower tooth pain. Dr. Peter stated that resident has food particle build up in the gum and is therefore recommending a dental cleaning. Resident prefers for Dr. Lopes to do the dental cleaning and SW will follow up with his office to schedule the cleaning.
--- NOTE | 2016-12-05 13:30 | NUR ---
SEEN AND EXAMINED BY CARLI VELASCO WITH NO NEW ORDERS AT THIS TIME.
[2016-12-05 19:52] VITALS: BP 117/72
[2016-12-05] MEDS: POLYETHYLENE GLYCOL 3350 17 GM POWD.PACK GT SCH (20:40)
[2016-12-05] MEDS: PROSOURCE / PROSTAT (PYXIS) 30 ML UDC GT SCH (20:41)
[2016-12-05] MEDS: CRANBERRY GT SCH (20:42)
[2016-12-05] MEDS: MULTIVIT, IRON, MIN NO. 8, FA 1 TAB GT SCH (20:44)
[2016-12-05] MEDS: ENOXAPARIN SODIUM 40 MG/0.4 ML DISP.SYRIN SQ SCH (20:46)
[2016-12-05] MEDS: ATORVASTATIN CALCIUM 20MG TABLET GT SCH (21:42)
[2016-12-06] MEDS: HYDROCODONE/APAP 5/325MG 1 EACH TABLET GT PRN (02:59)
[2016-12-06 08:27] VITALS: BP 139/76
--- NOTE | 2016-12-06 09:51 | NUR ---
all 9 am meds and treatment given. scanner not working.
[2016-12-06] MEDS: GABAPENTIN 300 MG CAPSULE GT SCH ×3 (09:52→17:49)
[2016-12-06] MEDS: METOPROLOL TARTRATE 25 MG TABLET GT SCH ×2 (09:52→17:48)
[2016-12-06] MEDS: ESCITALOPRAM OXALATE (10 MG) 10 MG TABLET GT SCH (09:52)
[2016-12-06] MEDS: BACLOFEN (10 MG) 10 MG TABLET GT SCH ×4 (09:52→21:07)
[2016-12-06] MEDS: ACIDOPHILUS/BULGARICUS 1 EACH TAB.CHEW GT SCH ×3 (09:52→17:48)
[2016-12-06] MEDS: Z GUARD REMEDY 2 OZ OINT TP SCH ×4 (09:53→21:10)
[2016-12-06] MEDS: CLOTRIMAZOLE 1% 15 GM TUBE TP SCH ×2 (09:53→21:09)
[2016-12-06] MEDS: HYDROGEN PEROXIDE 480 ML BOTTLE TP SCH ×2 (09:53→21:09)
[2016-12-06] MEDS: MINERAL OIL/PETROL OINT 396 GM JAR TP SCH ×3 (09:53→17:49)
[2016-12-06] MEDS: CLOPIDOGREL BISULFATE 75 MG TABLET PO SCH (09:53)
[2016-12-06] MEDS: VITAMINS A AND D 56.7 GM TUBE TP SCH ×2 (09:53→21:10)
[2016-12-06] MEDS: HYDROCODONE/APAP 10/325MG 1 EA TABLET GT SCH ×2 (09:53→21:08)
[2016-12-06] MEDS: HYDROGEL DRESSING 90 GM TUBE TP SCH ×3 (09:53→21:11)
[2016-12-06] MEDS: GENTAMICIN 0.1% OINT 15 GM TUBE TP SCH ×3 (09:53→21:11)
[2016-12-06] MEDS: CALCITRIOL 0.25 MCG CAPSULE PO SCH (09:53)
[2016-12-06] MEDS: CALCIUM CARBONATE 500 MG TAB.CHEW GT SCH ×3 (09:53→17:49)
[2016-12-06] MEDS: ASCORBIC ACID 500 MG TABLET GT SCH ×2 (09:53→17:49)
[2016-12-06] MEDS: FAMOTIDINE (20 MG) 20 MG TABLET GT SCH ×2 (09:53→21:08)
[2016-12-06] MEDS ORDERED: GENTAMICIN 0.1% OINT 15 GM TUBE TP PRN (17:00)
[2016-12-06] MEDS ORDERED: HYDROGEL DRESSING 90 GM TUBE TP PRN (17:00)
[2016-12-06] MEDS ORDERED: Z GUARD REMEDY 4 OZ OINT TP PRN (17:00)
[2016-12-06 20:06] VITALS: BP 106/65
[2016-12-06] MEDS: POLYETHYLENE GLYCOL 3350 17 GM POWD.PACK GT SCH (21:07)
[2016-12-06] MEDS: CRANBERRY GT SCH (21:07)
[2016-12-06] MEDS: ENOXAPARIN SODIUM 40 MG/0.4 ML DISP.SYRIN SQ SCH (21:08)
[2016-12-06] MEDS: MULTIVIT, IRON, MIN NO. 8, FA 1 TAB GT SCH (21:08)
[2016-12-06] MEDS: PROSOURCE / PROSTAT (PYXIS) 30 ML UDC GT SCH (21:08)
[2016-12-06] MEDS: ATORVASTATIN CALCIUM 20MG TABLET GT SCH (21:10)
[2016-12-06] MEDS: Z GUARD REMEDY 4 OZ OINT TP SCH (21:11)
[2016-12-07] MEDS: HYDROCODONE/APAP 5/325MG 1 EACH TABLET GT PRN (03:46)
[2016-12-07 08:06] VITALS: BP 139/79
[2016-12-07] MEDS: Z GUARD REMEDY 2 OZ OINT TP SCH ×4 (09:00→21:21)
[2016-12-07] MEDS: CLOTRIMAZOLE 1% 15 GM TUBE TP SCH ×2 (09:00→21:21)
[2016-12-07] MEDS: HYDROGEN PEROXIDE 480 ML BOTTLE TP SCH ×2 (09:00→21:21)
[2016-12-07] MEDS: GENTAMICIN 0.1% OINT 15 GM TUBE TP SCH ×4 (09:00→21:21)
[2016-12-07] MEDS: HYDROGEL DRESSING 90 GM TUBE TP SCH ×4 (09:00→21:21)
[2016-12-07] MEDS: Z GUARD REMEDY 4 OZ OINT TP SCH ×2 (09:00→21:21)
[2016-12-07] MEDS: VITAMINS A AND D 56.7 GM TUBE TP SCH ×2 (09:00→21:21)
[2016-12-07] MEDS: METOPROLOL TARTRATE 25 MG TABLET GT SCH ×2 (09:24→17:37)
[2016-12-07] MEDS: HYDROCODONE/APAP 10/325MG 1 EA TABLET GT SCH ×2 (09:24→21:20)
[2016-12-07] MEDS: GABAPENTIN 300 MG CAPSULE GT SCH ×3 (09:24→17:37)
[2016-12-07] MEDS: BACLOFEN (10 MG) 10 MG TABLET GT SCH ×4 (09:24→21:19)
[2016-12-07] MEDS: ESCITALOPRAM OXALATE (10 MG) 10 MG TABLET GT SCH (09:24)
[2016-12-07] MEDS: ACIDOPHILUS/BULGARICUS 1 EACH TAB.CHEW GT SCH ×3 (09:24→17:37)
[2016-12-07] MEDS: MINERAL OIL/PETROL OINT 396 GM JAR TP SCH ×3 (09:25→17:37)
[2016-12-07] MEDS: CALCITRIOL 0.25 MCG CAPSULE PO SCH (09:25)
[2016-12-07] MEDS: CALCIUM CARBONATE 500 MG TAB.CHEW GT SCH ×3 (09:25→17:37)
[2016-12-07] MEDS: CLOPIDOGREL BISULFATE 75 MG TABLET PO SCH (09:25)
[2016-12-07] MEDS: FAMOTIDINE (20 MG) 20 MG TABLET GT SCH ×2 (09:25→21:20)
[2016-12-07] MEDS: ASCORBIC ACID 500 MG TABLET GT SCH ×2 (09:25→17:37)
--- NOTE | 2016-12-07 13:49 | NUR ---
Spoke to the office of Dr. Lopes ([phone]) and spoke with Mystery. She stated that Dr. Rome TERRAZAS is able to come on Monday December 12, 2016 to do the dental cleaning. Ggoojk-oj-qxf Vilma informed.
--- NOTE | 2016-12-07 15:20 | NUR ---
SEEN AND EXAMINED BY CARLI VELASCO WITH NO NEW ORDERS AT THIS TIME.
[2016-12-07 19:33] VITALS: BP 106/74
[2016-12-07] MEDS: POLYETHYLENE GLYCOL 3350 17 GM POWD.PACK GT SCH (21:19)
[2016-12-07] MEDS: CRANBERRY GT SCH (21:19)
[2016-12-07] MEDS: MULTIVIT, IRON, MIN NO. 8, FA 1 TAB GT SCH (21:20)
[2016-12-07] MEDS: PROSOURCE / PROSTAT (PYXIS) 30 ML UDC GT SCH (21:20)
[2016-12-07] MEDS: ENOXAPARIN SODIUM 40 MG/0.4 ML DISP.SYRIN SQ SCH (21:21)
[2016-12-07] MEDS: ATORVASTATIN CALCIUM 20MG TABLET GT SCH (21:22)
[2016-12-08] MEDS: MAGNESIUM HYDROXIDE 30 ML UDC GT PRN (05:32)
[2016-12-08 07:44] VITALS: BP 110/71
[2016-12-08] MEDS: GENTAMICIN 0.1% OINT 15 GM TUBE TP SCH ×4 (09:00→22:00)
[2016-12-08] MEDS: CLOTRIMAZOLE 1% 15 GM TUBE TP SCH ×2 (09:00→22:00)
[2016-12-08] MEDS: HYDROGEN PEROXIDE 480 ML BOTTLE TP SCH ×2 (09:00→22:00)
[2016-12-08] MEDS: HYDROGEL DRESSING 90 GM TUBE TP SCH ×4 (09:00→22:00)
[2016-12-08] MEDS: Z GUARD REMEDY 4 OZ OINT TP SCH ×2 (09:00→22:00)
[2016-12-08] MEDS: VITAMINS A AND D 56.7 GM TUBE TP SCH ×2 (09:00→22:00)
[2016-12-08] MEDS: Z GUARD REMEDY 2 OZ OINT TP SCH ×4 (09:00→22:00)
[2016-12-08] MEDS: ACIDOPHILUS/BULGARICUS 1 EACH TAB.CHEW GT SCH ×3 (09:43→17:38)
[2016-12-08] MEDS: ESCITALOPRAM OXALATE (10 MG) 10 MG TABLET GT SCH (09:43)
[2016-12-08] MEDS: METOPROLOL TARTRATE 25 MG TABLET GT SCH ×2 (09:53→17:38)
[2016-12-08] MEDS: BACLOFEN (10 MG) 10 MG TABLET GT SCH ×4 (09:53→21:00)
[2016-12-08] MEDS: GABAPENTIN 300 MG CAPSULE GT SCH ×3 (09:53→17:39)
[2016-12-08] MEDS: CALCIUM CARBONATE 500 MG TAB.CHEW GT SCH ×3 (09:54→17:39)
[2016-12-08] MEDS: HYDROCODONE/APAP 10/325MG 1 EA TABLET GT SCH ×2 (09:54→21:33)
[2016-12-08] MEDS: FAMOTIDINE (20 MG) 20 MG TABLET GT SCH ×2 (09:54→21:00)
[2016-12-08] MEDS: MINERAL OIL/PETROL OINT 396 GM JAR TP SCH ×3 (09:54→17:39)
[2016-12-08] MEDS: ASCORBIC ACID 500 MG TABLET GT SCH ×2 (09:54→17:39)
[2016-12-08] MEDS: CALCITRIOL 0.25 MCG CAPSULE PO SCH (09:54)
[2016-12-08] MEDS: CLOPIDOGREL BISULFATE 75 MG TABLET PO SCH (09:54)
[2016-12-08] MEDS: ALDARA TP SCH (15:17)
[2016-12-08 20:23] VITALS: BP 102/63
[2016-12-08] MEDS: ENOXAPARIN SODIUM 40 MG/0.4 ML DISP.SYRIN SQ SCH (21:00)
[2016-12-08] MEDS: MULTIVIT, IRON, MIN NO. 8, FA 1 TAB GT SCH (21:00)
[2016-12-08] MEDS: PROSOURCE / PROSTAT (PYXIS) 30 ML UDC GT SCH (21:00)
[2016-12-08] MEDS: POLYETHYLENE GLYCOL 3350 17 GM POWD.PACK GT SCH (21:00)
[2016-12-08] MEDS: CRANBERRY GT SCH (21:00)
[2016-12-08] MEDS: ATORVASTATIN CALCIUM 20MG TABLET GT SCH (22:00)
[2016-12-09 08:00] VITALS: BP 106/73
--- NOTE | 2016-12-09 09:00 | NUR ---
Seen and examined by Dr. Walker, new order given
[2016-12-09] MEDS: ACIDOPHILUS/BULGARICUS 1 EACH TAB.CHEW GT SCH ×3 (09:22→17:41)
[2016-12-09] MEDS: BACLOFEN (10 MG) 10 MG TABLET GT SCH ×4 (09:22→20:37)
[2016-12-09] MEDS: ESCITALOPRAM OXALATE (10 MG) 10 MG TABLET GT SCH (09:22)
[2016-12-09] MEDS: FAMOTIDINE (20 MG) 20 MG TABLET GT SCH ×2 (09:23→20:37)
[2016-12-09] MEDS: GABAPENTIN 300 MG CAPSULE GT SCH ×3 (09:23→17:41)
[2016-12-09] MEDS: METOPROLOL TARTRATE 25 MG TABLET GT SCH ×2 (09:23→17:41)
[2016-12-09] MEDS: HYDROCODONE/APAP 10/325MG 1 EA TABLET GT SCH ×2 (09:23→21:24)
[2016-12-09] MEDS: MINERAL OIL/PETROL OINT 396 GM JAR TP SCH ×3 (09:24→17:41)
[2016-12-09] MEDS: ASCORBIC ACID 500 MG TABLET GT SCH ×2 (09:24→17:41)
[2016-12-09] MEDS: CALCITRIOL 0.25 MCG CAPSULE PO SCH (09:24)
[2016-12-09] MEDS: CALCIUM CARBONATE 500 MG TAB.CHEW GT SCH ×3 (09:24→17:41)
[2016-12-09] MEDS: CLOPIDOGREL BISULFATE 75 MG TABLET PO SCH (09:24)
[2016-12-09] MEDS: CLOTRIMAZOLE 1% 15 GM TUBE TP SCH ×2 (10:00→20:38)
[2016-12-09] MEDS: HYDROGEN PEROXIDE 480 ML BOTTLE TP SCH ×2 (10:00→20:38)
[2016-12-09] MEDS: HYDROGEL DRESSING 90 GM TUBE TP SCH ×4 (10:00→20:38)
[2016-12-09] MEDS: VITAMINS A AND D 56.7 GM TUBE TP SCH ×2 (10:00→20:38)
[2016-12-09] MEDS: GENTAMICIN 0.1% OINT 15 GM TUBE TP SCH ×4 (10:00→20:38)
[2016-12-09] MEDS: Z GUARD REMEDY 4 OZ OINT TP SCH ×2 (10:00→20:38)
[2016-12-09] MEDS: Z GUARD REMEDY 2 OZ OINT TP SCH ×4 (10:00→20:38)
[2016-12-09] MEDS: PROSOURCE / PROSTAT (PYXIS) 30 ML UDC GT SCH (20:37)
[2016-12-09] MEDS: MULTIVIT, IRON, MIN NO. 8, FA 1 TAB GT SCH (20:37)
[2016-12-09] MEDS: POLYETHYLENE GLYCOL 3350 17 GM POWD.PACK GT SCH (20:37)
[2016-12-09] MEDS: CRANBERRY GT SCH (20:37)
[2016-12-09] MEDS: ENOXAPARIN SODIUM 40 MG/0.4 ML DISP.SYRIN SQ SCH (20:38)
[2016-12-09] MEDS: ATORVASTATIN CALCIUM 20MG TABLET GT SCH (21:24)
[2016-12-09 22:11] VITALS: BP 102/62
[2016-12-10] MEDS: ASCORBIC ACID 500 MG TABLET GT SCH ×2 (08:21→17:40)
[2016-12-10] MEDS: METOPROLOL TARTRATE 25 MG TABLET GT SCH ×2 (08:21→17:40)
[2016-12-10] MEDS: ACIDOPHILUS/BULGARICUS 1 EACH TAB.CHEW GT SCH ×3 (08:21→17:39)
[2016-12-10] MEDS: BACLOFEN (10 MG) 10 MG TABLET GT SCH ×4 (08:21→21:11)
[2016-12-10] MEDS: CALCITRIOL 0.25 MCG CAPSULE PO SCH (08:21)
[2016-12-10] MEDS: GABAPENTIN 300 MG CAPSULE GT SCH ×3 (08:21→17:40)
[2016-12-10] MEDS: FAMOTIDINE (20 MG) 20 MG TABLET GT SCH ×2 (08:21→21:11)
[2016-12-10] MEDS: ESCITALOPRAM OXALATE (10 MG) 10 MG TABLET GT SCH (08:21)
[2016-12-10] MEDS: MINERAL OIL/PETROL OINT 396 GM JAR TP SCH ×3 (08:21→17:40)
[2016-12-10] MEDS: CALCIUM CARBONATE 500 MG TAB.CHEW GT SCH ×3 (08:21→17:40)
[2016-12-10] MEDS: CLOPIDOGREL BISULFATE 75 MG TABLET PO SCH (08:21)
[2016-12-10] MEDS: HYDROCODONE/APAP 10/325MG 1 EA TABLET GT SCH ×2 (08:23→21:37)
[2016-12-10 08:30] VITALS: BP 109/67
[2016-12-10] MEDS: CLOTRIMAZOLE 1% 15 GM TUBE TP SCH ×2 (09:30→22:00)
[2016-12-10] MEDS: HYDROGEL DRESSING 90 GM TUBE TP SCH ×4 (09:30→22:00)
[2016-12-10] MEDS: Z GUARD REMEDY 4 OZ OINT TP SCH ×2 (09:30→22:00)
[2016-12-10] MEDS: VITAMINS A AND D 56.7 GM TUBE TP SCH ×2 (09:30→22:00)
[2016-12-10] MEDS: GENTAMICIN 0.1% OINT 15 GM TUBE TP SCH ×4 (09:30→22:00)
[2016-12-10] MEDS: HYDROGEN PEROXIDE 480 ML BOTTLE TP SCH ×2 (09:30→22:00)
[2016-12-10] MEDS: Z GUARD REMEDY 2 OZ OINT TP SCH ×4 (09:30→22:00)
[2016-12-10 20:18] VITALS: BP 107/73
[2016-12-10] MEDS: POLYETHYLENE GLYCOL 3350 17 GM POWD.PACK GT SCH (21:11)
[2016-12-10] MEDS: PROSOURCE / PROSTAT (PYXIS) 30 ML UDC GT SCH (21:11)
[2016-12-10] MEDS: ENOXAPARIN SODIUM 40 MG/0.4 ML DISP.SYRIN SQ SCH (21:11)
[2016-12-10] MEDS: CRANBERRY GT SCH (21:11)
[2016-12-10] MEDS: MULTIVIT, IRON, MIN NO. 8, FA 1 TAB GT SCH (21:11)
[2016-12-10] MEDS: ATORVASTATIN CALCIUM 20MG TABLET GT SCH (21:12)
[2016-12-11] MEDS: HYDROCODONE/APAP 10/325MG 1 EA TABLET GT SCH ×2 (09:00→21:00)
[2016-12-11] MEDS: Z GUARD REMEDY 4 OZ OINT TP SCH ×2 (09:00→21:40)
[2016-12-11] MEDS: CLOPIDOGREL BISULFATE 75 MG TABLET PO SCH (09:00)
[2016-12-11] MEDS: HYDROGEN PEROXIDE 480 ML BOTTLE TP SCH ×2 (09:00→21:40)
[2016-12-11] MEDS: CLOTRIMAZOLE 1% 15 GM TUBE TP SCH ×2 (09:00→21:40)
[2016-12-11] MEDS: CALCITRIOL 0.25 MCG CAPSULE PO SCH (09:00)
[2016-12-11] MEDS: GABAPENTIN 300 MG CAPSULE GT SCH ×3 (09:00→17:26)
[2016-12-11] MEDS: Z GUARD REMEDY 2 OZ OINT TP SCH ×4 (09:00→21:40)
[2016-12-11] MEDS: METOPROLOL TARTRATE 25 MG TABLET GT SCH ×2 (09:00→17:26)
[2016-12-11] MEDS: ESCITALOPRAM OXALATE (10 MG) 10 MG TABLET GT SCH (09:00)
[2016-12-11] MEDS: GENTAMICIN 0.1% OINT 15 GM TUBE TP SCH ×4 (09:00→21:40)
[2016-12-11] MEDS: ACIDOPHILUS/BULGARICUS 1 EACH TAB.CHEW GT SCH ×3 (09:00→17:25)
[2016-12-11] MEDS: CALCIUM CARBONATE 500 MG TAB.CHEW GT SCH ×3 (09:00→17:26)
[2016-12-11] MEDS: MINERAL OIL/PETROL OINT 396 GM JAR TP SCH ×3 (09:00→17:26)
[2016-12-11] MEDS: BACLOFEN (10 MG) 10 MG TABLET GT SCH ×4 (09:00→21:39)
[2016-12-11] MEDS: FAMOTIDINE (20 MG) 20 MG TABLET GT SCH ×2 (09:00→21:39)
[2016-12-11] MEDS: HYDROGEL DRESSING 90 GM TUBE TP SCH ×4 (09:00→21:40)
[2016-12-11] MEDS: VITAMINS A AND D 56.7 GM TUBE TP SCH ×2 (09:00→21:40)
[2016-12-11] MEDS: ASCORBIC ACID 500 MG TABLET GT SCH ×2 (09:00→17:26)
[2016-12-11 16:29] VITALS: BP 111/68
--- NOTE | 2016-12-11 17:34 | NUR ---
Seen examined by CARLI Momin. Debridement od the wound was done with HUBERT
[2016-12-11] MEDS: PROSOURCE / PROSTAT (PYXIS) 30 ML UDC GT SCH (21:39)
[2016-12-11] MEDS: MULTIVIT, IRON, MIN NO. 8, FA 1 TAB GT SCH (21:39)
[2016-12-11] MEDS: POLYETHYLENE GLYCOL 3350 17 GM POWD.PACK GT SCH (21:39)
[2016-12-11] MEDS: CRANBERRY GT SCH (21:39)
[2016-12-11] MEDS: ATORVASTATIN CALCIUM 20MG TABLET GT SCH (21:40)
[2016-12-11] MEDS: ENOXAPARIN SODIUM 40 MG/0.4 ML DISP.SYRIN SQ SCH (21:40)
[2016-12-12 08:22] VITALS: BP 121/65
[2016-12-12] MEDS: ACIDOPHILUS/BULGARICUS 1 EACH TAB.CHEW GT SCH ×3 (09:23→17:41)
[2016-12-12] MEDS: BACLOFEN (10 MG) 10 MG TABLET GT SCH ×4 (09:23→21:28)
[2016-12-12] MEDS: METOPROLOL TARTRATE 25 MG TABLET GT SCH ×2 (09:23→17:41)
[2016-12-12] MEDS: ESCITALOPRAM OXALATE (10 MG) 10 MG TABLET GT SCH (09:23)
[2016-12-12] MEDS: ASCORBIC ACID 500 MG TABLET GT SCH ×2 (09:24→17:41)
[2016-12-12] MEDS: GABAPENTIN 300 MG CAPSULE GT SCH ×3 (09:24→17:41)
[2016-12-12] MEDS: FAMOTIDINE (20 MG) 20 MG TABLET GT SCH ×2 (09:24→21:28)
[2016-12-12] MEDS: CALCIUM CARBONATE 500 MG TAB.CHEW GT SCH ×3 (09:24→17:41)
[2016-12-12] MEDS: HYDROCODONE/APAP 10/325MG 1 EA TABLET GT SCH ×2 (09:24→21:28)
[2016-12-12] MEDS: MINERAL OIL/PETROL OINT 396 GM JAR TP SCH ×3 (09:24→17:41)
[2016-12-12] MEDS: CLOPIDOGREL BISULFATE 75 MG TABLET PO SCH (09:24)
[2016-12-12] MEDS: CALCITRIOL 0.25 MCG CAPSULE PO SCH (09:24)
[2016-12-12] MEDS: Z GUARD REMEDY 4 OZ OINT TP SCH ×2 (09:25→21:30)
[2016-12-12] MEDS: CLOTRIMAZOLE 1% 15 GM TUBE TP SCH ×2 (09:25→21:29)
[2016-12-12] MEDS: Z GUARD REMEDY 2 OZ OINT TP SCH ×4 (09:25→21:29)
[2016-12-12] MEDS: HYDROGEL DRESSING 90 GM TUBE TP SCH ×4 (09:25→21:29)
[2016-12-12] MEDS: GENTAMICIN 0.1% OINT 15 GM TUBE TP SCH ×4 (09:25→21:29)
[2016-12-12] MEDS: HYDROGEN PEROXIDE 480 ML BOTTLE TP SCH ×2 (09:25→21:29)
[2016-12-12] MEDS: VITAMINS A AND D 56.7 GM TUBE TP SCH ×2 (09:26→21:30)
--- NOTE | 2016-12-12 09:32 | NUR ---
Dr. Rome TERRAZAS came to do a dental cleaning for the resident. He reported he had "generalized moderate/heavy amount of food debris/plaque/calculus build up on teeth, specifically in area interproximal of #18/19 where pt is having pain." He stated that after dental cleaning, he should feel better. Resident tolerated the cleaning well. SW informed charge nurse that doctor recommended for the resident to get his teeth brushed at least 2x/day. Informed pbnuik-eu-tnz Vilma.
[2016-12-12] MEDS: ALDARA TP SCH (15:17)
[2016-12-12 19:58] VITALS: BP 106/60
[2016-12-12] MEDS: CRANBERRY GT SCH (21:28)
[2016-12-12] MEDS: ENOXAPARIN SODIUM 40 MG/0.4 ML DISP.SYRIN SQ SCH (21:28)
[2016-12-12] MEDS: PROSOURCE / PROSTAT (PYXIS) 30 ML UDC GT SCH (21:28)
[2016-12-12] MEDS: POLYETHYLENE GLYCOL 3350 17 GM POWD.PACK GT SCH (21:28)
[2016-12-12] MEDS: MULTIVIT, IRON, MIN NO. 8, FA 1 TAB GT SCH (21:28)
[2016-12-12] MEDS: ATORVASTATIN CALCIUM 20MG TABLET GT SCH (21:30)
[2016-12-13 08:16] VITALS: BP 130/89
[2016-12-13] MEDS: Z GUARD REMEDY 4 OZ OINT TP SCH ×2 (09:00→21:43)
[2016-12-13] MEDS: GENTAMICIN 0.1% OINT 15 GM TUBE TP SCH ×4 (09:00→21:43)
[2016-12-13] MEDS: CLOTRIMAZOLE 1% 15 GM TUBE TP SCH ×2 (09:00→21:43)
[2016-12-13] MEDS: VITAMINS A AND D 56.7 GM TUBE TP SCH ×2 (09:00→21:43)
[2016-12-13] MEDS: HYDROGEN PEROXIDE 480 ML BOTTLE TP SCH ×2 (09:00→21:43)
[2016-12-13] MEDS: Z GUARD REMEDY 2 OZ OINT TP SCH ×4 (09:00→21:43)
[2016-12-13] MEDS: HYDROGEL DRESSING 90 GM TUBE TP SCH ×4 (09:00→21:42)
[2016-12-13] MEDS: BACLOFEN (10 MG) 10 MG TABLET GT SCH ×4 (09:46→21:41)
[2016-12-13] MEDS: ACIDOPHILUS/BULGARICUS 1 EACH TAB.CHEW GT SCH ×3 (09:46→17:29)
[2016-12-13] MEDS: ESCITALOPRAM OXALATE (10 MG) 10 MG TABLET GT SCH (09:46)
[2016-12-13] MEDS: METOPROLOL TARTRATE 25 MG TABLET GT SCH ×2 (09:47→17:29)
[2016-12-13] MEDS: GABAPENTIN 300 MG CAPSULE GT SCH ×3 (09:47→17:29)
[2016-12-13] MEDS: CLOPIDOGREL BISULFATE 75 MG TABLET PO SCH (09:48)
[2016-12-13] MEDS: CALCITRIOL 0.25 MCG CAPSULE PO SCH (09:48)
[2016-12-13] MEDS: MINERAL OIL/PETROL OINT 396 GM JAR TP SCH ×3 (09:48→17:29)
[2016-12-13] MEDS: HYDROCODONE/APAP 10/325MG 1 EA TABLET GT SCH ×2 (09:48→21:41)
[2016-12-13] MEDS: CALCIUM CARBONATE 500 MG TAB.CHEW GT SCH ×3 (09:48→17:29)
[2016-12-13] MEDS: FAMOTIDINE (20 MG) 20 MG TABLET GT SCH ×2 (09:48→21:41)
[2016-12-13] MEDS: ASCORBIC ACID 500 MG TABLET GT SCH ×2 (09:48→17:29)
[2016-12-13 20:02] VITALS: BP 100/58
[2016-12-13] MEDS: POLYETHYLENE GLYCOL 3350 17 GM POWD.PACK GT SCH (21:41)
[2016-12-13] MEDS: MULTIVIT, IRON, MIN NO. 8, FA 1 TAB GT SCH (21:41)
[2016-12-13] MEDS: PROSOURCE / PROSTAT (PYXIS) 30 ML UDC GT SCH (21:41)
[2016-12-13] MEDS: CRANBERRY GT SCH (21:41)
[2016-12-13] MEDS: ENOXAPARIN SODIUM 40 MG/0.4 ML DISP.SYRIN SQ SCH (21:42)
[2016-12-13] MEDS: ATORVASTATIN CALCIUM 20MG TABLET GT SCH (21:43)
[2016-12-14 07:51] VITALS: BP 131/79
[2016-12-14] MEDS: HYDROCODONE/APAP 10/325MG 1 EA TABLET GT SCH ×2 (08:35→21:52)
[2016-12-14] MEDS: METOPROLOL TARTRATE 25 MG TABLET GT SCH ×2 (08:40→17:00)
[2016-12-14] MEDS: ACIDOPHILUS/BULGARICUS 1 EACH TAB.CHEW GT SCH ×3 (08:40→17:00)
[2016-12-14] MEDS: ESCITALOPRAM OXALATE (10 MG) 10 MG TABLET GT SCH (08:41)
[2016-12-14] MEDS: FAMOTIDINE (20 MG) 20 MG TABLET GT SCH ×2 (08:42→21:52)
[2016-12-14] MEDS: GABAPENTIN 300 MG CAPSULE GT SCH ×3 (08:42→17:00)
[2016-12-14] MEDS: BACLOFEN (10 MG) 10 MG TABLET GT SCH ×4 (08:42→21:51)
[2016-12-14] MEDS: CALCIUM CARBONATE 500 MG TAB.CHEW GT SCH ×3 (08:43→17:00)
[2016-12-14] MEDS: CLOPIDOGREL BISULFATE 75 MG TABLET PO SCH (08:43)
[2016-12-14] MEDS: ASCORBIC ACID 500 MG TABLET GT SCH ×2 (08:43→17:00)
[2016-12-14] MEDS: CALCITRIOL 0.25 MCG CAPSULE PO SCH (08:44)
[2016-12-14] MEDS: CLOTRIMAZOLE 1% 15 GM TUBE TP SCH ×2 (09:40→21:53)
[2016-12-14] MEDS: VITAMINS A AND D 56.7 GM TUBE TP SCH ×2 (09:40→21:53)
[2016-12-14] MEDS: HYDROGEL DRESSING 90 GM TUBE TP SCH ×4 (09:40→21:52)
[2016-12-14] MEDS: MINERAL OIL/PETROL OINT 396 GM JAR TP SCH ×3 (09:40→17:00)
[2016-12-14] MEDS: HYDROGEN PEROXIDE 480 ML BOTTLE TP SCH ×2 (09:40→21:53)
[2016-12-14] MEDS: GENTAMICIN 0.1% OINT 15 GM TUBE TP SCH ×4 (09:40→21:52)
[2016-12-14] MEDS: Z GUARD REMEDY 2 OZ OINT TP SCH ×4 (09:40→21:53)
[2016-12-14] MEDS: Z GUARD REMEDY 4 OZ OINT TP SCH ×2 (09:40→21:53)
--- NOTE | 2016-12-14 14:50 | NUR ---
Informed by charge nurse that resident has discoloration on his right middle toe. Informed Dr. De La Vega and he stated he will come and see the resident tomorrow. Informed charge nurse.
--- NOTE | 2016-12-14 15:00 | NUR ---
Met with the resident and assisted him in making a phone call to his friend. Resident had a hard time speaking when making phone call but had no difficulties once phone call was over. He stated he was feeling pressured to talk in the moment (while on the phone) and needs to practice. SW stayed with the resident for some time and he appeared to be in good spirits.
[2016-12-14 21:21] VITALS: BP 109/76
[2016-12-14] MEDS: POLYETHYLENE GLYCOL 3350 17 GM POWD.PACK GT SCH (21:51)
[2016-12-14] MEDS: CRANBERRY GT SCH (21:51)
[2016-12-14] MEDS: PROSOURCE / PROSTAT (PYXIS) 30 ML UDC GT SCH (21:52)
[2016-12-14] MEDS: ENOXAPARIN SODIUM 40 MG/0.4 ML DISP.SYRIN SQ SCH (21:52)
[2016-12-14] MEDS: MULTIVIT, IRON, MIN NO. 8, FA 1 TAB GT SCH (21:52)
[2016-12-14] MEDS: ATORVASTATIN CALCIUM 20MG TABLET GT SCH (21:53)
[2016-12-15 07:53] VITALS: BP 124/69
[2016-12-15] MEDS: HYDROCODONE/APAP 10/325MG 1 EA TABLET GT SCH ×2 (08:39→21:00)
[2016-12-15] MEDS: ACIDOPHILUS/BULGARICUS 1 EACH TAB.CHEW GT SCH ×3 (08:40→17:29)
[2016-12-15] MEDS: ESCITALOPRAM OXALATE (10 MG) 10 MG TABLET GT SCH (08:41)
[2016-12-15] MEDS: BACLOFEN (10 MG) 10 MG TABLET GT SCH ×4 (08:42→20:32)
[2016-12-15] MEDS: METOPROLOL TARTRATE 25 MG TABLET GT SCH ×2 (08:45→17:30)
[2016-12-15] MEDS: GABAPENTIN 300 MG CAPSULE GT SCH ×3 (08:45→17:30)
[2016-12-15] MEDS: CALCIUM CARBONATE 500 MG TAB.CHEW GT SCH ×3 (08:57→17:30)
[2016-12-15] MEDS: ASCORBIC ACID 500 MG TABLET GT SCH ×2 (08:57→17:30)
[2016-12-15] MEDS: FAMOTIDINE (20 MG) 20 MG TABLET GT SCH ×2 (08:57→20:33)
[2016-12-15] MEDS: CLOPIDOGREL BISULFATE 75 MG TABLET PO SCH (08:57)
[2016-12-15] MEDS: CALCITRIOL 0.25 MCG CAPSULE PO SCH (09:21)
[2016-12-15] MEDS: HYDROGEL DRESSING 90 GM TUBE TP SCH ×4 (09:21→20:33)
[2016-12-15] MEDS: MINERAL OIL/PETROL OINT 396 GM JAR TP SCH ×3 (09:21→17:30)
[2016-12-15] MEDS: Z GUARD REMEDY 2 OZ OINT TP SCH ×4 (09:22→20:34)
[2016-12-15] MEDS: GENTAMICIN 0.1% OINT 15 GM TUBE TP SCH ×4 (09:22→20:33)
[2016-12-15] MEDS: HYDROGEN PEROXIDE 480 ML BOTTLE TP SCH ×2 (09:22→20:33)
[2016-12-15] MEDS: CLOTRIMAZOLE 1% 15 GM TUBE TP SCH ×2 (09:22→20:34)
[2016-12-15] MEDS: VITAMINS A AND D 56.7 GM TUBE TP SCH ×2 (09:23→20:34)
[2016-12-15] MEDS: Z GUARD REMEDY 4 OZ OINT TP SCH ×2 (09:23→20:34)
--- NOTE | 2016-12-15 10:00 | NUR ---
Seen by Dr. De La Vega. Pt had a blackish discoloration on the right 3rd toenail. He said he trimmed it. Received order to apply betadine on the lateral nail border, cover with dry dressing daily and PRN.
[2016-12-15] MEDS: ALDARA TP SCH (15:17)
--- NOTE | 2016-12-15 15:45 | NUR ---
RAVI met with the resident per his request. He wanted to make some phone calls but did not have those person's phone numbers. Assisted him in emailing his friend to ask for respective phone numbers and RAVI stated she will follow up tomorrow.
[2016-12-15 19:43] VITALS: BP 112/77
[2016-12-15] MEDS: CRANBERRY GT SCH (20:32)
[2016-12-15] MEDS: MULTIVIT, IRON, MIN NO. 8, FA 1 TAB GT SCH (20:33)
[2016-12-15] MEDS: ENOXAPARIN SODIUM 40 MG/0.4 ML DISP.SYRIN SQ SCH (20:33)
[2016-12-15] MEDS: PROSOURCE / PROSTAT (PYXIS) 30 ML UDC GT SCH (20:33)
[2016-12-15] MEDS: POLYETHYLENE GLYCOL 3350 17 GM POWD.PACK GT SCH (20:33)
[2016-12-15] MEDS: ATORVASTATIN CALCIUM 20MG TABLET GT SCH (22:06)
[2016-12-16] MEDS: HYDROCODONE/APAP 5/325MG 1 EACH TABLET GT PRN (06:29)
[2016-12-16 07:41] VITALS: BP 111/62
[2016-12-16] MEDS: ACIDOPHILUS/BULGARICUS 1 EACH TAB.CHEW GT SCH ×3 (09:04→17:00)
[2016-12-16] MEDS: METOPROLOL TARTRATE 25 MG TABLET GT SCH ×2 (09:04→17:00)
[2016-12-16] MEDS: ESCITALOPRAM OXALATE (10 MG) 10 MG TABLET GT SCH (09:04)
[2016-12-16] MEDS: BACLOFEN (10 MG) 10 MG TABLET GT SCH ×4 (09:04→21:54)
[2016-12-16] MEDS: CALCITRIOL 0.25 MCG CAPSULE PO SCH (09:05)
[2016-12-16] MEDS: FAMOTIDINE (20 MG) 20 MG TABLET GT SCH ×2 (09:05→21:55)
[2016-12-16] MEDS: ASCORBIC ACID 500 MG TABLET GT SCH ×2 (09:05→17:00)
[2016-12-16] MEDS: CLOPIDOGREL BISULFATE 75 MG TABLET PO SCH (09:05)
[2016-12-16] MEDS: CALCIUM CARBONATE 500 MG TAB.CHEW GT SCH ×3 (09:05→17:00)
[2016-12-16] MEDS: GABAPENTIN 300 MG CAPSULE GT SCH ×3 (09:05→17:00)
[2016-12-16] MEDS: HYDROCODONE/APAP 10/325MG 1 EA TABLET GT SCH ×2 (09:32→21:55)
[2016-12-16] MEDS: HYDROGEN PEROXIDE 480 ML BOTTLE TP SCH ×2 (10:00→21:56)
[2016-12-16] MEDS: VITAMINS A AND D 56.7 GM TUBE TP SCH ×2 (10:00→21:56)
[2016-12-16] MEDS: Z GUARD REMEDY 2 OZ OINT TP SCH ×4 (10:00→21:56)
[2016-12-16] MEDS: CLOTRIMAZOLE 1% 15 GM TUBE TP SCH ×2 (10:00→21:56)
[2016-12-16] MEDS: HYDROGEL DRESSING 90 GM TUBE TP SCH ×4 (10:00→21:55)
[2016-12-16] MEDS: GENTAMICIN 0.1% OINT 15 GM TUBE TP SCH ×4 (10:00→21:56)
[2016-12-16] MEDS: MINERAL OIL/PETROL OINT 396 GM JAR TP SCH ×3 (10:00→17:00)
[2016-12-16] MEDS: Z GUARD REMEDY 4 OZ OINT TP SCH ×2 (10:00→21:56)
[2016-12-16 19:46] VITALS: BP 98/67
[2016-12-16] MEDS: POLYETHYLENE GLYCOL 3350 17 GM POWD.PACK GT SCH (21:54)
[2016-12-16] MEDS: CRANBERRY GT SCH (21:54)
[2016-12-16] MEDS: ENOXAPARIN SODIUM 40 MG/0.4 ML DISP.SYRIN SQ SCH (21:55)
[2016-12-16] MEDS: PROSOURCE / PROSTAT (PYXIS) 30 ML UDC GT SCH (21:55)
[2016-12-16] MEDS: MULTIVIT, IRON, MIN NO. 8, FA 1 TAB GT SCH (21:55)
[2016-12-16] MEDS: ATORVASTATIN CALCIUM 20MG TABLET GT SCH (21:56)
[2016-12-17] MEDS: HYDROCODONE/APAP 5/325MG 1 EACH TABLET GT PRN (04:30)
[2016-12-17 07:40] VITALS: BP 118/62
[2016-12-17] MEDS: ESCITALOPRAM OXALATE (10 MG) 10 MG TABLET GT SCH (08:24)
[2016-12-17] MEDS: BACLOFEN (10 MG) 10 MG TABLET GT SCH ×4 (08:24→21:16)
[2016-12-17] MEDS: ACIDOPHILUS/BULGARICUS 1 EACH TAB.CHEW GT SCH ×3 (08:24→17:53)
[2016-12-17] MEDS: METOPROLOL TARTRATE 25 MG TABLET GT SCH ×2 (08:25→17:54)
[2016-12-17] MEDS: GABAPENTIN 300 MG CAPSULE GT SCH ×3 (08:25→17:54)
[2016-12-17] MEDS: CALCITRIOL 0.25 MCG CAPSULE PO SCH (08:25)
[2016-12-17] MEDS: FAMOTIDINE (20 MG) 20 MG TABLET GT SCH ×2 (08:25→21:16)
[2016-12-17] MEDS: CLOPIDOGREL BISULFATE 75 MG TABLET PO SCH (08:25)
[2016-12-17] MEDS: ASCORBIC ACID 500 MG TABLET GT SCH ×2 (08:25→17:54)
[2016-12-17] MEDS: CALCIUM CARBONATE 500 MG TAB.CHEW GT SCH ×3 (08:25→17:54)
[2016-12-17] MEDS: HYDROCODONE/APAP 10/325MG 1 EA TABLET GT SCH ×2 (08:25→21:16)
[2016-12-17] MEDS: HYDROGEL DRESSING 90 GM TUBE TP SCH ×4 (09:00→21:17)
[2016-12-17] MEDS: VITAMINS A AND D 56.7 GM TUBE TP SCH ×2 (09:00→21:18)
[2016-12-17] MEDS: MINERAL OIL/PETROL OINT 396 GM JAR TP SCH ×3 (09:00→17:54)
[2016-12-17] MEDS: Z GUARD REMEDY 4 OZ OINT TP SCH ×2 (09:00→21:18)
[2016-12-17] MEDS: Z GUARD REMEDY 2 OZ OINT TP SCH ×4 (09:00→21:18)
[2016-12-17] MEDS: GENTAMICIN 0.1% OINT 15 GM TUBE TP SCH ×4 (09:00→21:17)
[2016-12-17] MEDS: HYDROGEN PEROXIDE 480 ML BOTTLE TP SCH ×2 (09:00→21:17)
[2016-12-17] MEDS: CLOTRIMAZOLE 1% 15 GM TUBE TP SCH ×2 (09:00→21:17)
[2016-12-17 19:36] VITALS: BP 122/73
[2016-12-17] MEDS: POLYETHYLENE GLYCOL 3350 17 GM POWD.PACK GT SCH (21:16)
[2016-12-17] MEDS: PROSOURCE / PROSTAT (PYXIS) 30 ML UDC GT SCH (21:16)
[2016-12-17] MEDS: CRANBERRY GT SCH (21:16)
[2016-12-17] MEDS: MULTIVIT, IRON, MIN NO. 8, FA 1 TAB GT SCH (21:16)
[2016-12-17] MEDS: NEOMY SULF/BACITRAC ZN/POLY 15 GM TUBE TP SCH ×2 (21:17→21:18)
[2016-12-17] MEDS: ENOXAPARIN SODIUM 40 MG/0.4 ML DISP.SYRIN SQ SCH (21:17)
[2016-12-17] MEDS: ATORVASTATIN CALCIUM 20MG TABLET GT SCH (21:18)
[2016-12-18] MEDS: APAP GT PRN ×2 (05:48→15:00)
[2016-12-18] MEDS: OXYCODONE GT PRN ×2 (05:48→15:00)
[2016-12-18 07:34] VITALS: BP 116/62
[2016-12-18] MEDS: ESCITALOPRAM OXALATE (10 MG) 10 MG TABLET GT SCH (09:53)
[2016-12-18] MEDS: ACIDOPHILUS/BULGARICUS 1 EACH TAB.CHEW GT SCH ×3 (09:53→17:32)
[2016-12-18] MEDS: BACLOFEN (10 MG) 10 MG TABLET GT SCH ×4 (09:53→20:29)
[2016-12-18] MEDS: FAMOTIDINE (20 MG) 20 MG TABLET GT SCH ×2 (09:54→20:29)
[2016-12-18] MEDS: GABAPENTIN 300 MG CAPSULE GT SCH ×3 (09:54→17:32)
[2016-12-18] MEDS: ASCORBIC ACID 500 MG TABLET GT SCH ×2 (09:54→17:32)
[2016-12-18] MEDS: CLOPIDOGREL BISULFATE 75 MG TABLET PO SCH (09:54)
[2016-12-18] MEDS: METOPROLOL TARTRATE 25 MG TABLET GT SCH ×2 (09:54→17:32)
[2016-12-18] MEDS: CALCIUM CARBONATE 500 MG TAB.CHEW GT SCH ×3 (09:54→17:32)
[2016-12-18] MEDS: CALCITRIOL 0.25 MCG CAPSULE PO SCH (09:54)
[2016-12-18] MEDS: HYDROCODONE/APAP 10/325MG 1 EA TABLET GT SCH ×2 (09:54→20:29)
[2016-12-18] MEDS: MINERAL OIL/PETROL OINT 396 GM JAR TP SCH ×3 (09:54→17:32)
[2016-12-18] MEDS: HYDROGEL DRESSING 90 GM TUBE TP SCH ×4 (09:55→21:02)
[2016-12-18] MEDS: GENTAMICIN 0.1% OINT 15 GM TUBE TP SCH ×4 (09:56→21:02)
[2016-12-18] MEDS: HYDROGEN PEROXIDE 480 ML BOTTLE TP SCH ×2 (09:56→21:02)
[2016-12-18] MEDS: Z GUARD REMEDY 2 OZ OINT TP SCH ×3 (09:57→21:03)
[2016-12-18] MEDS: NEOMY SULF/BACITRAC ZN/POLY 15 GM TUBE TP SCH ×4 (09:57→21:03)
[2016-12-18] MEDS: CLOTRIMAZOLE 1% 15 GM TUBE TP SCH ×2 (09:57→21:02)
[2016-12-18] MEDS: Z GUARD REMEDY 4 OZ OINT TP SCH ×2 (09:57→21:03)
[2016-12-18] MEDS: VITAMINS A AND D 56.7 GM TUBE TP SCH ×2 (09:57→21:03)
[2016-12-18 19:30] VITALS: BP 117/75
[2016-12-18] MEDS: POLYETHYLENE GLYCOL 3350 17 GM POWD.PACK GT SCH (20:29)
[2016-12-18] MEDS: CRANBERRY GT SCH (20:29)
[2016-12-18] MEDS: MULTIVIT, IRON, MIN NO. 8, FA 1 TAB GT SCH (20:30)
[2016-12-18] MEDS: ENOXAPARIN SODIUM 40 MG/0.4 ML DISP.SYRIN SQ SCH (20:30)
[2016-12-18] MEDS: PROSOURCE / PROSTAT (PYXIS) 30 ML UDC GT SCH (20:30)
[2016-12-18] MEDS ORDERED: HYDROGEL DRESSING 90 GM TUBE TP SCH (21:00)
[2016-12-18] MEDS: ATORVASTATIN CALCIUM 20MG TABLET GT SCH (21:03)
[2016-12-19 07:58] VITALS: BP 141/82
[2016-12-19] MEDS: ASCORBIC ACID 500 MG TABLET GT SCH ×2 (08:26→16:59)
[2016-12-19] MEDS: CALCITRIOL 0.25 MCG CAPSULE PO SCH (08:26)
[2016-12-19] MEDS: GABAPENTIN 300 MG CAPSULE GT SCH ×3 (08:26→16:59)
[2016-12-19] MEDS: MINERAL OIL/PETROL OINT 396 GM JAR TP SCH ×3 (08:26→16:59)
[2016-12-19] MEDS: ACIDOPHILUS/BULGARICUS 1 EACH TAB.CHEW GT SCH ×3 (08:26→16:58)
[2016-12-19] MEDS: FAMOTIDINE (20 MG) 20 MG TABLET GT SCH ×2 (08:26→20:35)
[2016-12-19] MEDS: CALCIUM CARBONATE 500 MG TAB.CHEW GT SCH ×3 (08:26→16:59)
[2016-12-19] MEDS: CLOPIDOGREL BISULFATE 75 MG TABLET PO SCH (08:26)
[2016-12-19] MEDS: HYDROCODONE/APAP 10/325MG 1 EA TABLET GT SCH ×2 (08:26→20:33)
[2016-12-19] MEDS: BACLOFEN (10 MG) 10 MG TABLET GT SCH ×4 (08:26→20:33)
[2016-12-19] MEDS: METOPROLOL TARTRATE 25 MG TABLET GT SCH ×2 (08:26→16:59)
[2016-12-19] MEDS: ESCITALOPRAM OXALATE (10 MG) 10 MG TABLET GT SCH (08:26)
[2016-12-19] MEDS: HYDROGEN PEROXIDE 480 ML BOTTLE TP SCH ×2 (09:30→20:35)
[2016-12-19] MEDS: NEOMY SULF/BACITRAC ZN/POLY 15 GM TUBE TP SCH ×4 (09:30→20:35)
[2016-12-19] MEDS: Z GUARD REMEDY 4 OZ OINT TP SCH ×2 (09:30→20:36)
[2016-12-19] MEDS: GENTAMICIN 0.1% OINT 15 GM TUBE TP SCH ×4 (09:30→20:35)
[2016-12-19] MEDS: Z GUARD REMEDY 2 OZ OINT TP SCH ×2 (09:30→20:36)
[2016-12-19] MEDS: VITAMINS A AND D 56.7 GM TUBE TP SCH ×2 (09:30→20:36)
[2016-12-19] MEDS: CLOTRIMAZOLE 1% 15 GM TUBE TP SCH ×2 (09:30→20:35)
[2016-12-19] MEDS: HYDROGEL DRESSING 90 GM TUBE TP SCH ×4 (09:30→20:35)
[2016-12-19] MEDS: ALDARA TP SCH (15:17)
--- NOTE | 2016-12-19 16:02 | NUR ---
waste water worker met with the resident and assisted him in making a phone call to his friend. Resident was very happy that the director of social work assisted him and stated that he was happy to touch bases with his friend after all of these years.
[2016-12-19 19:53] VITALS: BP 113/67
[2016-12-19] MEDS: CRANBERRY GT SCH (20:32)
[2016-12-19] MEDS: POLYETHYLENE GLYCOL 3350 17 GM POWD.PACK GT SCH (20:33)
[2016-12-19] MEDS: ENOXAPARIN SODIUM 40 MG/0.4 ML DISP.SYRIN SQ SCH (20:35)
[2016-12-19] MEDS: PROSOURCE / PROSTAT (PYXIS) 30 ML UDC GT SCH (20:35)
[2016-12-19] MEDS: MULTIVIT, IRON, MIN NO. 8, FA 1 TAB GT SCH (20:35)
[2016-12-19] MEDS: ATORVASTATIN CALCIUM 20MG TABLET GT SCH (21:33)
[2016-12-20 08:31] VITALS: BP 110/70
[2016-12-20] MEDS: ACIDOPHILUS/BULGARICUS 1 EACH TAB.CHEW GT SCH ×3 (09:36→17:07)
[2016-12-20] MEDS: BACLOFEN (10 MG) 10 MG TABLET GT SCH ×4 (09:36→20:24)
[2016-12-20] MEDS: METOPROLOL TARTRATE 25 MG TABLET GT SCH ×2 (09:36→17:10)
[2016-12-20] MEDS: ESCITALOPRAM OXALATE (10 MG) 10 MG TABLET GT SCH (09:36)
[2016-12-20] MEDS: FAMOTIDINE (20 MG) 20 MG TABLET GT SCH ×2 (09:37→20:25)
[2016-12-20] MEDS: ASCORBIC ACID 500 MG TABLET GT SCH ×2 (09:37→17:07)
[2016-12-20] MEDS: GABAPENTIN 300 MG CAPSULE GT SCH ×3 (09:37→17:07)
[2016-12-20] MEDS: CALCITRIOL 0.25 MCG CAPSULE PO SCH (09:37)
[2016-12-20] MEDS: CALCIUM CARBONATE 500 MG TAB.CHEW GT SCH ×3 (09:37→17:07)
[2016-12-20] MEDS: CLOPIDOGREL BISULFATE 75 MG TABLET PO SCH (09:37)
[2016-12-20] MEDS: HYDROCODONE/APAP 10/325MG 1 EA TABLET GT SCH ×2 (09:46→20:25)
[2016-12-20] MEDS: HYDROGEL DRESSING 90 GM TUBE TP SCH ×4 (10:50→21:09)
[2016-12-20] MEDS: Z GUARD REMEDY 2 OZ OINT TP SCH ×2 (10:50→21:10)
[2016-12-20] MEDS: CLOTRIMAZOLE 1% 15 GM TUBE TP SCH ×2 (10:50→21:10)
[2016-12-20] MEDS: MINERAL OIL/PETROL OINT 396 GM JAR TP SCH ×3 (10:50→17:07)
[2016-12-20] MEDS: NEOMY SULF/BACITRAC ZN/POLY 15 GM TUBE TP SCH ×4 (10:50→21:10)
[2016-12-20] MEDS: VITAMINS A AND D 56.7 GM TUBE TP SCH ×2 (10:50→21:10)
[2016-12-20] MEDS: Z GUARD REMEDY 4 OZ OINT TP SCH ×2 (10:50→21:10)
[2016-12-20] MEDS: GENTAMICIN 0.1% OINT 15 GM TUBE TP SCH ×4 (10:50→21:09)
[2016-12-20] MEDS: HYDROGEN PEROXIDE 480 ML BOTTLE TP SCH ×2 (10:50→21:10)
[2016-12-20 19:33] VITALS: BP 130/83
[2016-12-20] MEDS: POLYETHYLENE GLYCOL 3350 17 GM POWD.PACK GT SCH (20:24)
[2016-12-20] MEDS: CRANBERRY GT SCH (20:24)
[2016-12-20] MEDS: ENOXAPARIN SODIUM 40 MG/0.4 ML DISP.SYRIN SQ SCH (20:25)
[2016-12-20] MEDS: PROSOURCE / PROSTAT (PYXIS) 30 ML UDC GT SCH (20:25)
[2016-12-20] MEDS: MULTIVIT, IRON, MIN NO. 8, FA 1 TAB GT SCH (20:25)
[2016-12-20] MEDS: ATORVASTATIN CALCIUM 20MG TABLET GT SCH (21:10)
[2016-12-21 08:20] VITALS: BP 105/64
[2016-12-21] MEDS: NEOMY SULF/BACITRAC ZN/POLY 15 GM TUBE TP SCH ×4 (09:00→21:15)
[2016-12-21] MEDS: Z GUARD REMEDY 4 OZ OINT TP SCH ×2 (09:00→21:15)
[2016-12-21] MEDS: VITAMINS A AND D 56.7 GM TUBE TP SCH ×2 (09:00→21:15)
[2016-12-21] MEDS: HYDROGEN PEROXIDE 480 ML BOTTLE TP SCH ×2 (09:00→21:14)
[2016-12-21] MEDS: HYDROGEL DRESSING 90 GM TUBE TP SCH ×4 (09:00→21:14)
[2016-12-21] MEDS: GENTAMICIN 0.1% OINT 15 GM TUBE TP SCH ×4 (09:00→21:14)
[2016-12-21] MEDS: Z GUARD REMEDY 2 OZ OINT TP SCH ×2 (09:00→21:15)
[2016-12-21] MEDS: BACLOFEN (10 MG) 10 MG TABLET GT SCH ×4 (09:20→20:36)
[2016-12-21] MEDS: FAMOTIDINE (20 MG) 20 MG TABLET GT SCH ×2 (09:20→20:37)
[2016-12-21] MEDS: ASCORBIC ACID 500 MG TABLET GT SCH ×2 (09:20→16:55)
[2016-12-21] MEDS: CALCITRIOL 0.25 MCG CAPSULE PO SCH (09:20)
[2016-12-21] MEDS: CALCIUM CARBONATE 500 MG TAB.CHEW GT SCH ×3 (09:20→16:55)
[2016-12-21] MEDS: METOPROLOL TARTRATE 25 MG TABLET GT SCH ×2 (09:20→16:55)
[2016-12-21] MEDS: CLOPIDOGREL BISULFATE 75 MG TABLET PO SCH (09:20)
[2016-12-21] MEDS: MINERAL OIL/PETROL OINT 396 GM JAR TP SCH ×3 (09:20→16:55)
[2016-12-21] MEDS: GABAPENTIN 300 MG CAPSULE GT SCH ×3 (09:20→16:55)
[2016-12-21] MEDS: ACIDOPHILUS/BULGARICUS 1 EACH TAB.CHEW GT SCH ×3 (09:20→16:55)
[2016-12-21] MEDS: ESCITALOPRAM OXALATE (10 MG) 10 MG TABLET GT SCH (09:20)
[2016-12-21] MEDS: HYDROCODONE/APAP 10/325MG 1 EA TABLET GT SCH ×2 (09:20→20:37)
[2016-12-21] MEDS: CLOTRIMAZOLE 1% 15 GM TUBE TP SCH ×2 (10:00→21:14)
--- NOTE | 2016-12-21 11:47 | NUR ---
RT NOTE PT YEIMI 8 XLT DISTAL CUFFED TRACHEOSTOMY TUBE LEFT AT BED SIDE FOR ENT. SYRINGE AND LUBRICANT LEFT AT BED SIDE WELL. CHARGE NURSE NOTIFIED OF TRACHEOSTOMY TUBE CHANGE DUE ON 12/22/16. CHARGE NURSE NOTIFIED TO CALL ENT TO SCHEDULE CHANGE. Addendum: 12/21/16 at 1150 by KAJAL ARAIZA RT Amended: Links added.
--- NOTE | 2016-12-21 15:00 | NUR ---
Placed a follow-up call to Dr. Gonzalez, ENT for monthly trach change. Spoke with Ba from his office, he said he will send a text message to MD again.
--- NOTE | 2016-12-21 17:46 | NUR ---
CARLI Mitchell came and seen wound photo taken today and stated she will come tomorrow to reassess wound treatment. Sacral wound bed no open area, surrounding area excoriated and moist, R buttocks wound bed red and granulating with some purplish discoloration noted in the edges. L mid back wound decreasing in size. Continue with current treatment but CARLI Mitchell stated she will see patient in AM for debridement.
[2016-12-21 20:12] VITALS: BP 120/73
[2016-12-21] MEDS: CRANBERRY GT SCH (20:36)
[2016-12-21] MEDS: POLYETHYLENE GLYCOL 3350 17 GM POWD.PACK GT SCH (20:36)
[2016-12-21] MEDS: MULTIVIT, IRON, MIN NO. 8, FA 1 TAB GT SCH (20:37)
[2016-12-21] MEDS: ENOXAPARIN SODIUM 40 MG/0.4 ML DISP.SYRIN SQ SCH (20:37)
[2016-12-21] MEDS: PROSOURCE / PROSTAT (PYXIS) 30 ML UDC GT SCH (20:37)
[2016-12-21] MEDS: ATORVASTATIN CALCIUM 20MG TABLET GT SCH (21:15)
[2016-12-22] MEDS: HYDROCODONE/APAP 5/325MG 1 EACH TABLET GT PRN (06:32)
[2016-12-22 07:25] VITALS: BP 127/75
[2016-12-22] MEDS: NEOMY SULF/BACITRAC ZN/POLY 15 GM TUBE TP SCH ×4 (09:00→21:02)
[2016-12-22] MEDS: CLOTRIMAZOLE 1% 15 GM TUBE TP SCH ×2 (09:00→21:02)
[2016-12-22] MEDS: HYDROGEL DRESSING 90 GM TUBE TP SCH ×4 (09:00→21:02)
[2016-12-22] MEDS: Z GUARD REMEDY 2 OZ OINT TP SCH ×2 (09:00→21:02)
[2016-12-22] MEDS: Z GUARD REMEDY 4 OZ OINT TP SCH ×2 (09:00→21:02)
[2016-12-22] MEDS: GENTAMICIN 0.1% OINT 15 GM TUBE TP SCH ×4 (09:00→21:02)
[2016-12-22] MEDS: VITAMINS A AND D 56.7 GM TUBE TP SCH ×2 (09:00→21:03)
[2016-12-22] MEDS: HYDROGEN PEROXIDE 480 ML BOTTLE TP SCH ×2 (09:00→21:02)
[2016-12-22] MEDS: GABAPENTIN 300 MG CAPSULE GT SCH ×3 (09:22→17:20)
[2016-12-22] MEDS: BACLOFEN (10 MG) 10 MG TABLET GT SCH ×4 (09:22→21:01)
[2016-12-22] MEDS: ESCITALOPRAM OXALATE (10 MG) 10 MG TABLET GT SCH (09:22)
[2016-12-22] MEDS: ACIDOPHILUS/BULGARICUS 1 EACH TAB.CHEW GT SCH ×3 (09:22→17:19)
[2016-12-22] MEDS: METOPROLOL TARTRATE 25 MG TABLET GT SCH ×2 (09:22→17:20)
[2016-12-22] MEDS: ASCORBIC ACID 500 MG TABLET GT SCH ×2 (09:23→17:20)
[2016-12-22] MEDS: CLOPIDOGREL BISULFATE 75 MG TABLET PO SCH (09:23)
[2016-12-22] MEDS: FAMOTIDINE (20 MG) 20 MG TABLET GT SCH ×2 (09:23→21:01)
[2016-12-22] MEDS: CALCIUM CARBONATE 500 MG TAB.CHEW GT SCH ×3 (09:23→17:20)
[2016-12-22] MEDS: CALCITRIOL 0.25 MCG CAPSULE PO SCH (09:23)
[2016-12-22] MEDS: MINERAL OIL/PETROL OINT 396 GM JAR TP SCH ×3 (09:23→17:20)
[2016-12-22] MEDS: HYDROCODONE/APAP 10/325MG 1 EA TABLET GT SCH ×2 (09:23→21:01)
[2016-12-22] MEDS: ALDARA TP SCH (15:17)
--- NOTE | 2016-12-22 17:13 | NUR ---
Seen by CARLI Ferraro. Pt refused wound debridement. CARLI Momin said she will come back next week.
[2016-12-22] MEDS: CRANBERRY GT SCH (21:01)
[2016-12-22] MEDS: PROSOURCE / PROSTAT (PYXIS) 30 ML UDC GT SCH (21:01)
[2016-12-22] MEDS: POLYETHYLENE GLYCOL 3350 17 GM POWD.PACK GT SCH (21:01)
[2016-12-22] MEDS: ENOXAPARIN SODIUM 40 MG/0.4 ML DISP.SYRIN SQ SCH (21:02)
[2016-12-22] MEDS: ATORVASTATIN CALCIUM 20MG TABLET GT SCH (21:03)
[2016-12-22] MEDS: MULTIVIT, IRON, MIN NO. 8, FA 1 TAB GT SCH (21:04)
[2016-12-22 22:20] VITALS: BP 112/62
[2016-12-23] MEDS: OXYCODONE GT PRN (03:37)
[2016-12-23] MEDS: APAP GT PRN (03:37)
[2016-12-23 08:40] VITALS: BP 112/75
[2016-12-23] MEDS: GENTAMICIN 0.1% OINT 15 GM TUBE TP SCH ×4 (09:00→21:32)
[2016-12-23] MEDS: HYDROGEL DRESSING 90 GM TUBE TP SCH ×4 (09:00→21:31)
[2016-12-23] MEDS: NEOMY SULF/BACITRAC ZN/POLY 15 GM TUBE TP SCH ×4 (09:00→21:32)
[2016-12-23] MEDS: CLOPIDOGREL BISULFATE 75 MG TABLET PO SCH (09:00)
[2016-12-23] MEDS: HYDROGEN PEROXIDE 480 ML BOTTLE TP SCH ×2 (09:00→21:32)
[2016-12-23] MEDS: CLOTRIMAZOLE 1% 15 GM TUBE TP SCH ×2 (09:00→21:32)
[2016-12-23] MEDS: ACIDOPHILUS/BULGARICUS 1 EACH TAB.CHEW GT SCH ×3 (09:42→17:44)
[2016-12-23] MEDS: ESCITALOPRAM OXALATE (10 MG) 10 MG TABLET GT SCH (09:42)
[2016-12-23] MEDS: BACLOFEN (10 MG) 10 MG TABLET GT SCH ×4 (09:42→21:30)
[2016-12-23] MEDS: METOPROLOL TARTRATE 25 MG TABLET GT SCH ×2 (09:44→17:44)
[2016-12-23] MEDS: FAMOTIDINE (20 MG) 20 MG TABLET GT SCH ×2 (09:47→21:30)
[2016-12-23] MEDS: HYDROCODONE/APAP 10/325MG 1 EA TABLET GT SCH ×2 (09:47→21:30)
[2016-12-23] MEDS: CALCITRIOL 0.25 MCG CAPSULE PO SCH (09:47)
[2016-12-23] MEDS: MINERAL OIL/PETROL OINT 396 GM JAR TP SCH ×3 (09:47→17:44)
[2016-12-23] MEDS: GABAPENTIN 300 MG CAPSULE GT SCH ×3 (09:47→17:44)
[2016-12-23] MEDS: ASCORBIC ACID 500 MG TABLET GT SCH ×2 (09:47→17:44)
[2016-12-23] MEDS: CALCIUM CARBONATE 500 MG TAB.CHEW GT SCH ×3 (09:47→17:44)
[2016-12-23] MEDS: VITAMINS A AND D 56.7 GM TUBE TP SCH ×2 (10:00→21:33)
[2016-12-23] MEDS: Z GUARD REMEDY 4 OZ OINT TP SCH ×2 (10:00→21:33)
[2016-12-23] MEDS: Z GUARD REMEDY 2 OZ OINT TP SCH ×2 (10:00→21:32)
[2016-12-23] MEDS: CRANBERRY GT SCH (21:29)
[2016-12-23] MEDS: ENOXAPARIN SODIUM 40 MG/0.4 ML DISP.SYRIN SQ SCH (21:30)
[2016-12-23] MEDS: POLYETHYLENE GLYCOL 3350 17 GM POWD.PACK GT SCH (21:30)
[2016-12-23] MEDS: MULTIVIT, IRON, MIN NO. 8, FA 1 TAB GT SCH (21:30)
[2016-12-23] MEDS: PROSOURCE / PROSTAT (PYXIS) 30 ML UDC GT SCH (21:30)
[2016-12-23] MEDS: ATORVASTATIN CALCIUM 20MG TABLET GT SCH (21:33)
[2016-12-23 23:13] VITALS: BP 126/79
[2016-12-24] MEDS: APAP GT PRN ×2 (04:32→16:10)
[2016-12-24] MEDS: OXYCODONE GT PRN ×2 (04:32→16:10)
--- NOTE | 2016-12-24 05:38 | NUR ---
Received pt with blood tinged urine output last night as endorsed by day shift pt yarbrough cath was out and re inserted during the day. Pt urine output from urinary drainage bag still with blood tinged color.Will continue to monitor and will endorsed.
[2016-12-24 08:24] VITALS: BP 124/76
[2016-12-24] MEDS: ACIDOPHILUS/BULGARICUS 1 EACH TAB.CHEW GT SCH ×3 (09:53→16:09)
[2016-12-24] MEDS: ESCITALOPRAM OXALATE (10 MG) 10 MG TABLET GT SCH (09:53)
[2016-12-24] MEDS: BACLOFEN (10 MG) 10 MG TABLET GT SCH ×4 (09:53→21:09)
[2016-12-24] MEDS: METOPROLOL TARTRATE 25 MG TABLET GT SCH ×2 (09:53→16:09)
[2016-12-24] MEDS: GABAPENTIN 300 MG CAPSULE GT SCH ×3 (09:53→16:09)
[2016-12-24] MEDS: CALCITRIOL 0.25 MCG CAPSULE PO SCH (09:54)
[2016-12-24] MEDS: ASCORBIC ACID 500 MG TABLET GT SCH ×2 (09:54→16:09)
[2016-12-24] MEDS: FAMOTIDINE (20 MG) 20 MG TABLET GT SCH ×2 (09:54→21:10)
[2016-12-24] MEDS: CALCIUM CARBONATE 500 MG TAB.CHEW GT SCH ×3 (09:54→16:09)
[2016-12-24] MEDS: HYDROCODONE/APAP 10/325MG 1 EA TABLET GT SCH ×2 (09:54→21:10)
[2016-12-24] MEDS: CLOPIDOGREL BISULFATE 75 MG TABLET PO SCH (09:54)
[2016-12-24] MEDS: HYDROGEL DRESSING 90 GM TUBE TP SCH ×4 (11:00→21:10)
[2016-12-24] MEDS: HYDROGEN PEROXIDE 480 ML BOTTLE TP SCH ×2 (11:00→21:10)
[2016-12-24] MEDS: Z GUARD REMEDY 2 OZ OINT TP SCH ×2 (11:00→21:11)
[2016-12-24] MEDS: NEOMY SULF/BACITRAC ZN/POLY 15 GM TUBE TP SCH ×3 (11:00→21:10)
[2016-12-24] MEDS: VITAMINS A AND D 56.7 GM TUBE TP SCH ×2 (11:00→21:11)
[2016-12-24] MEDS: MINERAL OIL/PETROL OINT 396 GM JAR TP SCH ×2 (11:00→13:00)
[2016-12-24] MEDS: CLOTRIMAZOLE 1% 15 GM TUBE TP SCH ×2 (11:00→21:10)
[2016-12-24] MEDS: Z GUARD REMEDY 4 OZ OINT TP SCH ×2 (11:00→21:11)
[2016-12-24] MEDS: GENTAMICIN 0.1% OINT 15 GM TUBE TP SCH ×4 (11:00→21:10)
--- NOTE | 2016-12-24 13:00 | NUR ---
Urine output with slight blood tinged color connected to the the drainage bag draining well, continue to monitor.
[2016-12-24] MEDS ORDERED: ACETAMINOPHEN 325 MG TABLET PO PRN (14:30)
--- NOTE | 2016-12-24 18:22 | NUR ---
Resident F/C by passing, reinserted new F/C Fr 16, patient tolerated procedure well, aseptic technique observed. No hematuria, urine clear.
[2016-12-24] MEDS: POLYETHYLENE GLYCOL 3350 17 GM POWD.PACK GT SCH (21:09)
[2016-12-24] MEDS: CRANBERRY GT SCH (21:09)
[2016-12-24] MEDS: PROSOURCE / PROSTAT (PYXIS) 30 ML UDC GT SCH (21:10)
[2016-12-24] MEDS: MULTIVIT, IRON, MIN NO. 8, FA 1 TAB GT SCH (21:10)
[2016-12-24] MEDS: ENOXAPARIN SODIUM 40 MG/0.4 ML DISP.SYRIN SQ SCH (21:10)
[2016-12-24] MEDS: ATORVASTATIN CALCIUM 20MG TABLET GT SCH (21:11)
[2016-12-24 22:41] VITALS: BP 110/61
[2016-12-25] MEDS: APAP GT PRN (00:35)
[2016-12-25] MEDS: OXYCODONE GT PRN (00:35)
--- NOTE | 2016-12-25 04:36 | NUR ---
took pt vitals & changed pt equipement tubing and trach collar, pt woke up very aggitated and upset was asked to get the hell out, explained to him that his equipemt needed to be changed Addendum: 12/25/16 at 0443 by AMBROSE GALLOWAY RT Amended: Links added.
[2016-12-25 07:40] VITALS: BP 109/69
[2016-12-25] MEDS: BACLOFEN (10 MG) 10 MG TABLET GT SCH ×4 (08:55→21:39)
[2016-12-25] MEDS: ACIDOPHILUS/BULGARICUS 1 EACH TAB.CHEW GT SCH ×3 (08:55→16:51)
[2016-12-25] MEDS: ESCITALOPRAM OXALATE (10 MG) 10 MG TABLET GT SCH (08:55)
[2016-12-25] MEDS: CALCIUM CARBONATE 500 MG TAB.CHEW GT SCH ×3 (08:56→16:51)
[2016-12-25] MEDS: CALCITRIOL 0.25 MCG CAPSULE PO SCH (08:56)
[2016-12-25] MEDS: GABAPENTIN 300 MG CAPSULE GT SCH ×3 (08:56→16:51)
[2016-12-25] MEDS: METOPROLOL TARTRATE 25 MG TABLET GT SCH ×2 (08:56→16:51)
[2016-12-25] MEDS: CLOPIDOGREL BISULFATE 75 MG TABLET PO SCH (08:56)
[2016-12-25] MEDS: FAMOTIDINE (20 MG) 20 MG TABLET GT SCH ×2 (08:56→21:39)
[2016-12-25] MEDS: HYDROCODONE/APAP 10/325MG 1 EA TABLET GT SCH ×2 (08:56→21:00)
[2016-12-25] MEDS: ASCORBIC ACID 500 MG TABLET GT SCH ×2 (08:56→16:51)
[2016-12-25] MEDS: HYDROGEL DRESSING 90 GM TUBE TP SCH ×4 (08:57→21:40)
[2016-12-25] MEDS: GENTAMICIN 0.1% OINT 15 GM TUBE TP SCH ×4 (08:58→21:40)
[2016-12-25] MEDS: NEOMY SULF/BACITRAC ZN/POLY 15 GM TUBE TP SCH ×2 (08:58→21:40)
[2016-12-25] MEDS: CLOTRIMAZOLE 1% 15 GM TUBE TP SCH ×2 (08:58→21:40)
[2016-12-25] MEDS: HYDROGEN PEROXIDE 480 ML BOTTLE TP SCH ×2 (08:58→21:40)
[2016-12-25] MEDS: Z GUARD REMEDY 2 OZ OINT TP SCH ×2 (08:58→21:41)
[2016-12-25] MEDS: Z GUARD REMEDY 4 OZ OINT TP SCH ×2 (08:59→21:41)
[2016-12-25] MEDS: VITAMINS A AND D 56.7 GM TUBE TP SCH ×2 (08:59→21:41)
[2016-12-25] MEDS: MINERAL OIL/PETROL OINT 396 GM JAR TP SCH ×3 (09:00→16:51)
[2016-12-25 20:26] VITALS: BP 93/67
[2016-12-25] MEDS: CRANBERRY GT SCH (21:39)
[2016-12-25] MEDS: POLYETHYLENE GLYCOL 3350 17 GM POWD.PACK GT SCH (21:39)
[2016-12-25] MEDS: MULTIVIT, IRON, MIN NO. 8, FA 1 TAB GT SCH (21:39)
[2016-12-25] MEDS: PROSOURCE / PROSTAT (PYXIS) 30 ML UDC GT SCH (21:39)
[2016-12-25] MEDS: ENOXAPARIN SODIUM 40 MG/0.4 ML DISP.SYRIN SQ SCH (21:40)
[2016-12-25] MEDS: ATORVASTATIN CALCIUM 20MG TABLET GT SCH (21:41)
[2016-12-26] MEDS: HYDROCODONE/APAP 5/325MG 1 EACH TABLET GT PRN (06:18)
[2016-12-26 07:50] VITALS: BP 114/70
--- NOTE | 2016-12-26 09:22 | NUR ---
Made a follow-up call to Dr. Gonzalez, spoke with Darryl regarding monthly trach change.
[2016-12-26] MEDS: ESCITALOPRAM OXALATE (10 MG) 10 MG TABLET GT SCH (09:35)
[2016-12-26] MEDS: ACIDOPHILUS/BULGARICUS 1 EACH TAB.CHEW GT SCH ×3 (09:35→17:02)
[2016-12-26] MEDS: BACLOFEN (10 MG) 10 MG TABLET GT SCH ×4 (09:35→20:39)
[2016-12-26] MEDS: CALCITRIOL 0.25 MCG CAPSULE PO SCH (09:36)
[2016-12-26] MEDS: ASCORBIC ACID 500 MG TABLET GT SCH ×2 (09:36→17:03)
[2016-12-26] MEDS: HYDROCODONE/APAP 10/325MG 1 EA TABLET GT SCH ×2 (09:36→20:40)
[2016-12-26] MEDS: CALCIUM CARBONATE 500 MG TAB.CHEW GT SCH ×3 (09:36→17:02)
[2016-12-26] MEDS: GABAPENTIN 300 MG CAPSULE GT SCH ×3 (09:36→17:02)
[2016-12-26] MEDS: METOPROLOL TARTRATE 25 MG TABLET GT SCH ×2 (09:36→17:02)
[2016-12-26] MEDS: MINERAL OIL/PETROL OINT 396 GM JAR TP SCH ×3 (09:36→17:03)
[2016-12-26] MEDS: FAMOTIDINE (20 MG) 20 MG TABLET GT SCH ×2 (09:36→20:40)
[2016-12-26] MEDS: CLOPIDOGREL BISULFATE 75 MG TABLET PO SCH (09:36)
[2016-12-26] MEDS: HYDROGEL DRESSING 90 GM TUBE TP SCH ×4 (09:37→21:14)
[2016-12-26] MEDS: NEOMY SULF/BACITRAC ZN/POLY 15 GM TUBE TP SCH ×2 (09:38→21:15)
[2016-12-26] MEDS: HYDROGEN PEROXIDE 480 ML BOTTLE TP SCH ×2 (09:38→21:15)
[2016-12-26] MEDS: Z GUARD REMEDY 2 OZ OINT TP SCH ×2 (09:38→21:15)
[2016-12-26] MEDS: CLOTRIMAZOLE 1% 15 GM TUBE TP SCH (09:38)
[2016-12-26] MEDS: GENTAMICIN 0.1% OINT 15 GM TUBE TP SCH ×4 (09:38→21:14)
[2016-12-26] MEDS: Z GUARD REMEDY 4 OZ OINT TP SCH ×2 (09:39→21:15)
[2016-12-26] MEDS: VITAMINS A AND D 56.7 GM TUBE TP SCH ×2 (09:39→21:15)
[2016-12-26] MEDS: ALDARA TP SCH (15:17)
[2016-12-26 19:48] VITALS: BP 109/65
[2016-12-26] MEDS: POLYETHYLENE GLYCOL 3350 17 GM POWD.PACK GT SCH (20:39)
[2016-12-26] MEDS: CRANBERRY GT SCH (20:39)
[2016-12-26] MEDS: PROSOURCE / PROSTAT (PYXIS) 30 ML UDC GT SCH (20:40)
[2016-12-26] MEDS: ENOXAPARIN SODIUM 40 MG/0.4 ML DISP.SYRIN SQ SCH (20:40)
[2016-12-26] MEDS: MULTIVIT, IRON, MIN NO. 8, FA 1 TAB GT SCH (20:40)
[2016-12-26] MEDS: ATORVASTATIN CALCIUM 20MG TABLET GT SCH (21:15)
[2016-12-27] MEDS: ACIDOPHILUS/BULGARICUS 1 EACH TAB.CHEW GT SCH ×3 (08:57→17:32)
[2016-12-27] MEDS: ESCITALOPRAM OXALATE (10 MG) 10 MG TABLET GT SCH (08:58)
[2016-12-27] MEDS: BACLOFEN (10 MG) 10 MG TABLET GT SCH ×4 (08:59→20:32)
[2016-12-27] MEDS: ASCORBIC ACID 500 MG TABLET GT SCH ×2 (09:00→17:35)
[2016-12-27] MEDS: CALCITRIOL 0.25 MCG CAPSULE PO SCH (09:00)
[2016-12-27] MEDS: CALCIUM CARBONATE 500 MG TAB.CHEW GT SCH ×3 (09:00→17:35)
[2016-12-27] MEDS: GABAPENTIN 300 MG CAPSULE GT SCH ×3 (09:00→17:34)
[2016-12-27] MEDS: FAMOTIDINE (20 MG) 20 MG TABLET GT SCH ×2 (09:00→20:32)
[2016-12-27] MEDS: MINERAL OIL/PETROL OINT 396 GM JAR TP SCH ×3 (09:00→17:45)
[2016-12-27] MEDS: CLOPIDOGREL BISULFATE 75 MG TABLET PO SCH (09:00)
[2016-12-27] MEDS: METOPROLOL TARTRATE 25 MG TABLET GT SCH ×2 (09:08→17:34)
[2016-12-27] MEDS: HYDROCODONE/APAP 5/325MG 1 EACH TABLET GT PRN (10:56)
[2016-12-27] MEDS: HYDROCODONE/APAP 10/325MG 1 EA TABLET GT SCH ×2 (15:00→20:32)
[2016-12-27] MEDS: VITAMINS A AND D 56.7 GM TUBE TP SCH ×2 (15:30→21:15)
[2016-12-27] MEDS: Z GUARD REMEDY 4 OZ OINT TP SCH ×2 (15:30→21:14)
[2016-12-27] MEDS: Z GUARD REMEDY 2 OZ OINT TP SCH ×2 (15:30→21:14)
[2016-12-27] MEDS: HYDROGEL DRESSING 90 GM TUBE TP SCH ×4 (15:30→21:14)
[2016-12-27] MEDS: HYDROGEN PEROXIDE 480 ML BOTTLE TP SCH ×2 (15:30→21:14)
[2016-12-27] MEDS: NEOMY SULF/BACITRAC ZN/POLY 15 GM TUBE TP SCH ×2 (15:30→21:14)
[2016-12-27] MEDS: GENTAMICIN 0.1% OINT 15 GM TUBE TP SCH ×4 (15:30→21:14)
[2016-12-27 19:44] VITALS: BP 128/67
[2016-12-27] MEDS: CRANBERRY GT SCH (20:32)
[2016-12-27] MEDS: MULTIVIT, IRON, MIN NO. 8, FA 1 TAB GT SCH (20:32)
[2016-12-27] MEDS: PROSOURCE / PROSTAT (PYXIS) 30 ML UDC GT SCH (20:32)
[2016-12-27] MEDS: POLYETHYLENE GLYCOL 3350 17 GM POWD.PACK GT SCH (20:32)
[2016-12-27] MEDS: ENOXAPARIN SODIUM 40 MG/0.4 ML DISP.SYRIN SQ SCH (20:33)
[2016-12-27] MEDS: ATORVASTATIN CALCIUM 20MG TABLET GT SCH (21:15)
[2016-12-28 07:51] VITALS: BP 127/68
[2016-12-28] MEDS: ACIDOPHILUS/BULGARICUS 1 EACH TAB.CHEW GT SCH ×3 (09:00→17:40)
[2016-12-28] MEDS: METOPROLOL TARTRATE 25 MG TABLET GT SCH ×2 (09:00→17:40)
[2016-12-28] MEDS: GABAPENTIN 300 MG CAPSULE GT SCH ×3 (09:00→17:40)
[2016-12-28] MEDS: BACLOFEN (10 MG) 10 MG TABLET GT SCH ×4 (09:00→20:48)
[2016-12-28] MEDS: HYDROGEL DRESSING 90 GM TUBE TP SCH ×4 (09:00→21:25)
[2016-12-28] MEDS: CLOPIDOGREL BISULFATE 75 MG TABLET PO SCH (09:00)
[2016-12-28] MEDS: MINERAL OIL/PETROL OINT 396 GM JAR TP SCH ×3 (09:00→17:42)
[2016-12-28] MEDS: FAMOTIDINE (20 MG) 20 MG TABLET GT SCH ×2 (09:00→20:49)
[2016-12-28] MEDS: CALCITRIOL 0.25 MCG CAPSULE PO SCH (09:00)
[2016-12-28] MEDS: ASCORBIC ACID 500 MG TABLET GT SCH ×2 (09:00→17:40)
[2016-12-28] MEDS: ESCITALOPRAM OXALATE (10 MG) 10 MG TABLET GT SCH (09:00)
[2016-12-28] MEDS: CALCIUM CARBONATE 500 MG TAB.CHEW GT SCH ×3 (09:00→17:40)
[2016-12-28] MEDS: HYDROCODONE/APAP 10/325MG 1 EA TABLET GT SCH ×2 (09:18→20:49)
[2016-12-28] MEDS: VITAMINS A AND D 56.7 GM TUBE TP SCH ×2 (10:18→21:26)
[2016-12-28] MEDS: NEOMY SULF/BACITRAC ZN/POLY 15 GM TUBE TP SCH ×2 (10:18→21:25)
[2016-12-28] MEDS: Z GUARD REMEDY 2 OZ OINT TP SCH ×2 (10:18→21:25)
[2016-12-28] MEDS: Z GUARD REMEDY 4 OZ OINT TP SCH ×2 (10:18→21:25)
[2016-12-28] MEDS: HYDROGEN PEROXIDE 480 ML BOTTLE TP SCH ×2 (10:18→21:25)
[2016-12-28] MEDS: GENTAMICIN 0.1% OINT 15 GM TUBE TP SCH ×4 (10:18→21:25)
--- NOTE | 2016-12-28 17:04 | NUR ---
Yarbrough catheter was accidentally pulled out. Inserted a new yarbrough catheter of 16Fr. Procedure well tolerated
[2016-12-28] MEDS: POLYETHYLENE GLYCOL 3350 17 GM POWD.PACK GT SCH (20:48)
[2016-12-28] MEDS: CRANBERRY GT SCH (20:48)
[2016-12-28] MEDS: MULTIVIT, IRON, MIN NO. 8, FA 1 TAB GT SCH (20:49)
[2016-12-28] MEDS: ENOXAPARIN SODIUM 40 MG/0.4 ML DISP.SYRIN SQ SCH (20:49)
[2016-12-28] MEDS: PROSOURCE / PROSTAT (PYXIS) 30 ML UDC GT SCH (20:49)
[2016-12-28] MEDS: ATORVASTATIN CALCIUM 20MG TABLET GT SCH (21:26)
[2016-12-28 23:50] VITALS: BP 106/66
[2016-12-29] MEDS: HYDROCODONE/APAP 5/325MG 1 EACH TABLET GT PRN (05:21)
[2016-12-29 07:46] VITALS: BP 139/77
[2016-12-29] MEDS: MINERAL OIL/PETROL OINT 396 GM JAR TP SCH ×3 (09:00→17:00)
[2016-12-29] MEDS: ESCITALOPRAM OXALATE (10 MG) 10 MG TABLET GT SCH (09:38)
[2016-12-29] MEDS: ACIDOPHILUS/BULGARICUS 1 EACH TAB.CHEW GT SCH ×3 (09:38→17:30)
[2016-12-29] MEDS: BACLOFEN (10 MG) 10 MG TABLET GT SCH ×4 (09:38→21:37)
[2016-12-29] MEDS: METOPROLOL TARTRATE 25 MG TABLET GT SCH ×2 (09:38→17:31)
[2016-12-29] MEDS: GABAPENTIN 300 MG CAPSULE GT SCH ×3 (09:38→17:31)
[2016-12-29] MEDS: CLOPIDOGREL BISULFATE 75 MG TABLET PO SCH (09:39)
[2016-12-29] MEDS: CALCIUM CARBONATE 500 MG TAB.CHEW GT SCH ×3 (09:39→17:31)
[2016-12-29] MEDS: ASCORBIC ACID 500 MG TABLET GT SCH ×2 (09:39→17:31)
[2016-12-29] MEDS: FAMOTIDINE (20 MG) 20 MG TABLET GT SCH ×2 (09:39→21:37)
[2016-12-29] MEDS: HYDROCODONE/APAP 10/325MG 1 EA TABLET GT SCH ×2 (09:39→21:37)
[2016-12-29] MEDS: CALCITRIOL 0.25 MCG CAPSULE PO SCH (09:39)
[2016-12-29] MEDS: GENTAMICIN 0.1% OINT 15 GM TUBE TP SCH ×4 (10:40→21:38)
[2016-12-29] MEDS: Z GUARD REMEDY 2 OZ OINT TP SCH ×2 (10:40→21:39)
[2016-12-29] MEDS: HYDROGEN PEROXIDE 480 ML BOTTLE TP SCH ×2 (10:40→21:39)
[2016-12-29] MEDS: VITAMINS A AND D 56.7 GM TUBE TP SCH ×2 (10:40→21:39)
[2016-12-29] MEDS: HYDROGEL DRESSING 90 GM TUBE TP SCH ×4 (10:40→21:38)
[2016-12-29] MEDS: Z GUARD REMEDY 4 OZ OINT TP SCH ×2 (10:40→21:39)
[2016-12-29] MEDS: NEOMY SULF/BACITRAC ZN/POLY 15 GM TUBE TP SCH ×2 (10:40→21:39)
[2016-12-29] MEDS: ALDARA TP SCH (15:17)
[2016-12-29] MEDS: POLYETHYLENE GLYCOL 3350 17 GM POWD.PACK GT SCH (21:37)
[2016-12-29] MEDS: MULTIVIT, IRON, MIN NO. 8, FA 1 TAB GT SCH (21:37)
[2016-12-29] MEDS: CRANBERRY GT SCH (21:37)
[2016-12-29] MEDS: PROSOURCE / PROSTAT (PYXIS) 30 ML UDC GT SCH (21:37)
[2016-12-29] MEDS: ENOXAPARIN SODIUM 40 MG/0.4 ML DISP.SYRIN SQ SCH (21:38)
[2016-12-29] MEDS: ATORVASTATIN CALCIUM 20MG TABLET GT SCH (21:39)
[2016-12-29 22:30] VITALS: BP 111/67
[2016-12-30] MEDS: HYDROCODONE/APAP 5/325MG 1 EACH TABLET GT PRN (04:23)
[2016-12-30 07:26] VITALS: BP 130/78
[2016-12-30] MEDS: ACIDOPHILUS/BULGARICUS 1 EACH TAB.CHEW GT SCH ×3 (08:20→17:35)
[2016-12-30] MEDS: CALCITRIOL 0.25 MCG CAPSULE PO SCH (08:20)
[2016-12-30] MEDS: CALCIUM CARBONATE 500 MG TAB.CHEW GT SCH ×3 (08:20→17:36)
[2016-12-30] MEDS: BACLOFEN (10 MG) 10 MG TABLET GT SCH ×4 (08:20→21:15)
[2016-12-30] MEDS: ASCORBIC ACID 500 MG TABLET GT SCH ×2 (08:20→17:36)
[2016-12-30] MEDS: ESCITALOPRAM OXALATE (10 MG) 10 MG TABLET GT SCH (08:20)
[2016-12-30] MEDS: CLOPIDOGREL BISULFATE 75 MG TABLET PO SCH (08:20)
[2016-12-30] MEDS: GABAPENTIN 300 MG CAPSULE GT SCH ×3 (08:20→17:36)
[2016-12-30] MEDS: FAMOTIDINE (20 MG) 20 MG TABLET GT SCH ×2 (08:20→21:15)
[2016-12-30] MEDS: MINERAL OIL/PETROL OINT 396 GM JAR TP SCH ×3 (08:21→17:36)
[2016-12-30] MEDS: METOPROLOL TARTRATE 25 MG TABLET GT SCH ×2 (08:21→17:36)
[2016-12-30] MEDS: Z GUARD REMEDY 4 OZ OINT TP SCH ×2 (09:00→21:17)
[2016-12-30] MEDS: VITAMINS A AND D 56.7 GM TUBE TP SCH ×2 (09:00→21:17)
[2016-12-30] MEDS: HYDROGEN PEROXIDE 480 ML BOTTLE TP SCH ×2 (09:40→21:17)
[2016-12-30] MEDS: HYDROCODONE/APAP 10/325MG 1 EA TABLET GT SCH ×2 (09:40→21:15)
[2016-12-30] MEDS: Z GUARD REMEDY 2 OZ OINT TP SCH ×2 (09:40→21:17)
[2016-12-30] MEDS: NEOMY SULF/BACITRAC ZN/POLY 15 GM TUBE TP SCH ×2 (09:40→21:17)
[2016-12-30] MEDS: HYDROGEL DRESSING 90 GM TUBE TP SCH ×4 (09:40→21:16)
[2016-12-30] MEDS: GENTAMICIN 0.1% OINT 15 GM TUBE TP SCH ×4 (09:40→21:17)
--- NOTE | 2016-12-30 13:44 | NUR ---
INTERDISCIPLINARY TEAM CONFERENCE (IDT) was held today. Cxuqpq-tu-nqw Vilma attended. Dr. Ugarte and the interdisciplinary team reviewed the current plan of care in detail. New orders were reviewed. Weight has remained stable and resident has not complained of any tooth pain. No new orders were given.
--- NOTE | 2016-12-30 19:20 | NUR ---
Noted with moderate amount of bleeding from sacral wound .pressure dressing applied.CABLE HOOKER.Peggy made aware,got an order to hold lovenox for 3 days.noted and carried out.continue to monitor.
[2016-12-30 20:06] VITALS: BP 103/62
[2016-12-30] MEDS: POLYETHYLENE GLYCOL 3350 17 GM POWD.PACK GT SCH (21:15)
[2016-12-30] MEDS: PROSOURCE / PROSTAT (PYXIS) 30 ML UDC GT SCH (21:15)
[2016-12-30] MEDS: CRANBERRY GT SCH (21:15)
[2016-12-30] MEDS: MULTIVIT, IRON, MIN NO. 8, FA 1 TAB GT SCH (21:15)
[2016-12-30] MEDS: ATORVASTATIN CALCIUM 20MG TABLET GT SCH (21:17)
[2016-12-31 07:59] VITALS: BP 119/68
[2016-12-31] MEDS: ESCITALOPRAM OXALATE (10 MG) 10 MG TABLET GT SCH (08:42)
[2016-12-31] MEDS: ACIDOPHILUS/BULGARICUS 1 EACH TAB.CHEW GT SCH ×3 (08:42→17:06)
[2016-12-31] MEDS: BACLOFEN (10 MG) 10 MG TABLET GT SCH ×4 (08:42→21:27)
[2016-12-31] MEDS: METOPROLOL TARTRATE 25 MG TABLET GT SCH ×2 (08:43→17:06)
[2016-12-31] MEDS: FAMOTIDINE (20 MG) 20 MG TABLET GT SCH ×2 (08:43→21:27)
[2016-12-31] MEDS: GABAPENTIN 300 MG CAPSULE GT SCH ×3 (08:43→17:06)
[2016-12-31] MEDS: MINERAL OIL/PETROL OINT 396 GM JAR TP SCH ×3 (08:43→17:06)
[2016-12-31] MEDS: CALCIUM CARBONATE 500 MG TAB.CHEW GT SCH ×3 (08:43→17:06)
[2016-12-31] MEDS: CALCITRIOL 0.25 MCG CAPSULE PO SCH (08:43)
[2016-12-31] MEDS: CLOPIDOGREL BISULFATE 75 MG TABLET PO SCH (08:43)
[2016-12-31] MEDS: ASCORBIC ACID 500 MG TABLET GT SCH ×2 (08:43→17:06)
[2016-12-31] MEDS: HYDROCODONE/APAP 10/325MG 1 EA TABLET GT SCH ×2 (08:45→21:28)
[2016-12-31] MEDS: HYDROGEL DRESSING 90 GM TUBE TP SCH ×3 (09:45→21:27)
[2016-12-31] MEDS: NEOMY SULF/BACITRAC ZN/POLY 15 GM TUBE TP SCH ×2 (09:45→21:27)
[2016-12-31] MEDS: HYDROGEN PEROXIDE 480 ML BOTTLE TP SCH ×2 (09:45→21:27)
[2016-12-31] MEDS: GENTAMICIN 0.1% OINT 15 GM TUBE TP SCH ×3 (09:45→21:27)
[2016-12-31] MEDS: VITAMINS A AND D 56.7 GM TUBE TP SCH ×2 (09:45→21:27)
[2016-12-31] MEDS: Z GUARD REMEDY 2 OZ OINT TP SCH ×2 (09:45→21:27)
[2016-12-31] MEDS: Z GUARD REMEDY 4 OZ OINT TP SCH (09:45)
[2016-12-31] MEDS: OXYCODONE GT PRN (11:13)
[2016-12-31] MEDS: APAP GT PRN (11:13)
[2016-12-31 20:03] VITALS: BP 106/69
[2016-12-31] MEDS: POLYETHYLENE GLYCOL 3350 17 GM POWD.PACK GT SCH (21:27)
[2016-12-31] MEDS: CRANBERRY GT SCH (21:27)
[2016-12-31] MEDS: MULTIVIT, IRON, MIN NO. 8, FA 1 TAB GT SCH (21:27)
[2016-12-31] MEDS: ATORVASTATIN CALCIUM 20MG TABLET GT SCH (21:27)
[2016-12-31] MEDS: PROSOURCE / PROSTAT (PYXIS) 30 ML UDC GT SCH (21:27)
[2017-01-01] MEDS: OXYCODONE GT PRN (07:08)
[2017-01-01] MEDS: APAP GT PRN (07:08)
[2017-01-01 07:52] VITALS: BP 110/75
[2017-01-01] MEDS: ESCITALOPRAM OXALATE (10 MG) 10 MG TABLET GT SCH (09:52)
[2017-01-01] MEDS: METOPROLOL TARTRATE 25 MG TABLET GT SCH ×2 (09:52→17:00)
[2017-01-01] MEDS: GABAPENTIN 300 MG CAPSULE GT SCH ×3 (09:52→17:00)
[2017-01-01] MEDS: ACIDOPHILUS/BULGARICUS 1 EACH TAB.CHEW GT SCH ×3 (09:52→17:00)
[2017-01-01] MEDS: BACLOFEN (10 MG) 10 MG TABLET GT SCH ×4 (09:52→21:58)
[2017-01-01] MEDS: HYDROCODONE/APAP 10/325MG 1 EA TABLET GT SCH ×2 (09:53→21:59)
[2017-01-01] MEDS: MINERAL OIL/PETROL OINT 396 GM JAR TP SCH ×3 (09:54→17:00)
[2017-01-01] MEDS: ASCORBIC ACID 500 MG TABLET GT SCH ×2 (09:54→17:00)
[2017-01-01] MEDS: CALCITRIOL 0.25 MCG CAPSULE PO SCH (09:54)
[2017-01-01] MEDS: CLOPIDOGREL BISULFATE 75 MG TABLET PO SCH (09:54)
[2017-01-01] MEDS: FAMOTIDINE (20 MG) 20 MG TABLET GT SCH ×2 (09:54→21:59)
[2017-01-01] MEDS: HYDROGEL DRESSING 90 GM TUBE TP SCH ×2 (09:54→21:59)
[2017-01-01] MEDS: CALCIUM CARBONATE 500 MG TAB.CHEW GT SCH ×3 (09:54→17:00)
[2017-01-01] MEDS: NEOMY SULF/BACITRAC ZN/POLY 15 GM TUBE TP SCH ×2 (09:55→21:59)
[2017-01-01] MEDS: Z GUARD REMEDY 2 OZ OINT TP SCH ×2 (09:55→21:59)
[2017-01-01] MEDS: VITAMINS A AND D 56.7 GM TUBE TP SCH ×2 (09:55→21:59)
[2017-01-01] MEDS: HYDROGEN PEROXIDE 480 ML BOTTLE TP SCH ×2 (09:55→21:59)
[2017-01-01] MEDS: GENTAMICIN 0.1% OINT 15 GM TUBE TP SCH ×2 (09:55→21:59)
[2017-01-01 19:51] VITALS: BP 127/84
[2017-01-01] MEDS: CRANBERRY GT SCH (21:56)
[2017-01-01] MEDS: MULTIVIT, IRON, MIN NO. 8, FA 1 TAB GT SCH (21:56)
[2017-01-01] MEDS: PROSOURCE / PROSTAT (PYXIS) 30 ML UDC GT SCH (21:57)
[2017-01-01] MEDS: POLYETHYLENE GLYCOL 3350 17 GM POWD.PACK GT SCH (21:58)
[2017-01-01] MEDS: ATORVASTATIN CALCIUM 20MG TABLET GT SCH (21:59)
[2017-01-02 08:01] VITALS: BP 118/68
[2017-01-02] MEDS: FAMOTIDINE (20 MG) 20 MG TABLET GT SCH ×2 (09:14→21:51)
[2017-01-02] MEDS: BACLOFEN (10 MG) 10 MG TABLET GT SCH ×4 (09:14→21:47)
[2017-01-02] MEDS: ACIDOPHILUS/BULGARICUS 1 EACH TAB.CHEW GT SCH ×3 (09:14→17:14)
[2017-01-02] MEDS: CLOPIDOGREL BISULFATE 75 MG TABLET PO SCH (09:14)
[2017-01-02] MEDS: HYDROCODONE/APAP 10/325MG 1 EA TABLET GT SCH ×2 (09:14→21:48)
[2017-01-02] MEDS: CALCITRIOL 0.25 MCG CAPSULE PO SCH (09:14)
[2017-01-02] MEDS: ASCORBIC ACID 500 MG TABLET GT SCH ×2 (09:14→17:17)
[2017-01-02] MEDS: MINERAL OIL/PETROL OINT 396 GM JAR TP SCH ×3 (09:14→17:17)
[2017-01-02] MEDS: METOPROLOL TARTRATE 25 MG TABLET GT SCH ×2 (09:14→17:16)
[2017-01-02] MEDS: CALCIUM CARBONATE 500 MG TAB.CHEW GT SCH ×3 (09:14→17:16)
[2017-01-02] MEDS: ESCITALOPRAM OXALATE (10 MG) 10 MG TABLET GT SCH (09:14)
[2017-01-02] MEDS: GABAPENTIN 300 MG CAPSULE GT SCH ×3 (09:14→17:16)
[2017-01-02] MEDS: GENTAMICIN 0.1% OINT 15 GM TUBE TP SCH ×3 (09:15→21:49)
[2017-01-02] MEDS: HYDROGEL DRESSING 90 GM TUBE TP SCH ×3 (09:15→21:49)
[2017-01-02] MEDS: Z GUARD REMEDY 2 OZ OINT TP SCH ×3 (09:15→21:50)
[2017-01-02] MEDS: VITAMINS A AND D 56.7 GM TUBE TP SCH ×2 (09:15→21:50)
[2017-01-02] MEDS: NEOMY SULF/BACITRAC ZN/POLY 15 GM TUBE TP SCH ×2 (09:15→21:50)
[2017-01-02] MEDS: HYDROGEN PEROXIDE 480 ML BOTTLE TP SCH ×2 (09:15→21:50)
[2017-01-02] MEDS ORDERED: GENTAMICIN 0.1% OINT 15 GM TUBE TP PRN (12:00)
[2017-01-02] MEDS ORDERED: Z GUARD REMEDY 2 OZ OINT TP PRN (12:30)
[2017-01-02] MEDS ORDERED: HYDROGEL DRESSING 90 GM TUBE TP PRN (12:30)
[2017-01-02] MEDS: ALDARA TP SCH (15:17)
[2017-01-02 19:54] VITALS: BP 124/67
[2017-01-02] MEDS: CRANBERRY GT SCH (21:47)
[2017-01-02] MEDS: MULTIVIT, IRON, MIN NO. 8, FA 1 TAB GT SCH (21:48)
[2017-01-02] MEDS: POLYETHYLENE GLYCOL 3350 17 GM POWD.PACK GT SCH (21:48)
[2017-01-02] MEDS: ATORVASTATIN CALCIUM 20MG TABLET GT SCH (21:50)
[2017-01-02] MEDS: PROSOURCE / PROSTAT (PYXIS) 30 ML UDC GT SCH (21:51)
[2017-01-03 08:03] VITALS: BP 126/82
[2017-01-03] MEDS: BACLOFEN (10 MG) 10 MG TABLET GT SCH ×4 (09:52→21:49)
[2017-01-03] MEDS: ACIDOPHILUS/BULGARICUS 1 EACH TAB.CHEW GT SCH ×3 (09:52→17:13)
[2017-01-03] MEDS: HYDROCODONE/APAP 10/325MG 1 EA TABLET GT SCH ×2 (09:52→21:50)
[2017-01-03] MEDS: ESCITALOPRAM OXALATE (10 MG) 10 MG TABLET GT SCH (09:52)
[2017-01-03] MEDS: FAMOTIDINE (20 MG) 20 MG TABLET GT SCH ×2 (09:52→21:50)
[2017-01-03] MEDS: ASCORBIC ACID 500 MG TABLET GT SCH ×2 (09:52→17:13)
[2017-01-03] MEDS: GABAPENTIN 300 MG CAPSULE GT SCH ×3 (09:52→17:13)
[2017-01-03] MEDS: METOPROLOL TARTRATE 25 MG TABLET GT SCH ×2 (09:52→17:13)
[2017-01-03] MEDS: CALCIUM CARBONATE 500 MG TAB.CHEW GT SCH ×3 (09:52→17:13)
[2017-01-03] MEDS: HYDROGEL DRESSING 90 GM TUBE TP SCH ×4 (09:53→21:50)
[2017-01-03] MEDS: NEOMY SULF/BACITRAC ZN/POLY 15 GM TUBE TP SCH ×2 (09:53→21:50)
[2017-01-03] MEDS: Z GUARD REMEDY 2 OZ OINT TP SCH ×4 (09:53→21:51)
[2017-01-03] MEDS: HYDROGEN PEROXIDE 480 ML BOTTLE TP SCH ×2 (09:53→21:50)
[2017-01-03] MEDS: VITAMINS A AND D 56.7 GM TUBE TP SCH ×2 (09:53→21:51)
[2017-01-03] MEDS: CALCITRIOL 0.25 MCG CAPSULE PO SCH (09:53)
[2017-01-03] MEDS: CLOPIDOGREL BISULFATE 75 MG TABLET PO SCH (09:53)
[2017-01-03] MEDS: MINERAL OIL/PETROL OINT 396 GM JAR TP SCH ×3 (09:53→17:13)
[2017-01-03] MEDS: GENTAMICIN 0.1% OINT 15 GM TUBE TP SCH ×4 (09:53→21:50)
[2017-01-03 19:14] VITALS: BP 125/67
[2017-01-03] MEDS: ENOXAPARIN SODIUM 40 MG/0.4 ML DISP.SYRIN SQ SCH (20:00)
[2017-01-03] MEDS: MULTIVIT, IRON, MIN NO. 8, FA 1 TAB GT SCH (21:47)
[2017-01-03] MEDS: PROSOURCE / PROSTAT (PYXIS) 30 ML UDC GT SCH (21:48)
[2017-01-03] MEDS: CRANBERRY GT SCH (21:49)
[2017-01-03] MEDS: POLYETHYLENE GLYCOL 3350 17 GM POWD.PACK GT SCH (21:50)
[2017-01-03] MEDS: ATORVASTATIN CALCIUM 20MG TABLET GT SCH (21:51)
[2017-01-04 07:58] VITALS: BP 115/71
[2017-01-04] MEDS: BACLOFEN (10 MG) 10 MG TABLET GT SCH ×4 (08:36→21:45)
[2017-01-04] MEDS: GABAPENTIN 300 MG CAPSULE GT SCH ×3 (08:36→17:00)
[2017-01-04] MEDS: ACIDOPHILUS/BULGARICUS 1 EACH TAB.CHEW GT SCH ×3 (08:36→17:00)
[2017-01-04] MEDS: METOPROLOL TARTRATE 25 MG TABLET GT SCH ×2 (08:36→17:00)
[2017-01-04] MEDS: ESCITALOPRAM OXALATE (10 MG) 10 MG TABLET GT SCH (08:36)
[2017-01-04] MEDS: HYDROCODONE/APAP 10/325MG 1 EA TABLET GT SCH ×2 (08:37→21:46)
[2017-01-04] MEDS: FAMOTIDINE (20 MG) 20 MG TABLET GT SCH ×2 (08:37→21:46)
[2017-01-04] MEDS: CLOPIDOGREL BISULFATE 75 MG TABLET PO SCH (08:37)
[2017-01-04] MEDS: CALCITRIOL 0.25 MCG CAPSULE PO SCH (08:37)
[2017-01-04] MEDS: CALCIUM CARBONATE 500 MG TAB.CHEW GT SCH ×3 (08:37→17:00)
[2017-01-04] MEDS: ASCORBIC ACID 500 MG TABLET GT SCH ×2 (08:37→17:00)
[2017-01-04] MEDS: MINERAL OIL/PETROL OINT 396 GM JAR TP SCH ×3 (09:17→17:00)
[2017-01-04] MEDS: HYDROGEL DRESSING 90 GM TUBE TP SCH ×4 (09:17→21:46)
[2017-01-04] MEDS: HYDROGEN PEROXIDE 480 ML BOTTLE TP SCH ×2 (09:19→21:46)
[2017-01-04] MEDS: GENTAMICIN 0.1% OINT 15 GM TUBE TP SCH ×4 (09:19→21:46)
[2017-01-04] MEDS: NEOMY SULF/BACITRAC ZN/POLY 15 GM TUBE TP SCH ×2 (09:20→21:46)
[2017-01-04] MEDS: Z GUARD REMEDY 2 OZ OINT TP SCH ×4 (09:20→21:47)
[2017-01-04] MEDS: VITAMINS A AND D 56.7 GM TUBE TP SCH ×2 (09:20→21:47)
[2017-01-04 19:47] VITALS: BP 138/74
[2017-01-04] MEDS: ENOXAPARIN SODIUM 40 MG/0.4 ML DISP.SYRIN SQ SCH (20:00)
[2017-01-04] MEDS: CRANBERRY GT SCH (21:45)
[2017-01-04] MEDS: POLYETHYLENE GLYCOL 3350 17 GM POWD.PACK GT SCH (21:45)
[2017-01-04] MEDS: PROSOURCE / PROSTAT (PYXIS) 30 ML UDC GT SCH (21:46)
[2017-01-04] MEDS: MULTIVIT, IRON, MIN NO. 8, FA 1 TAB GT SCH (21:46)
[2017-01-04] MEDS: ATORVASTATIN CALCIUM 20MG TABLET GT SCH (21:47)
[2017-01-05] MEDS: APAP GT PRN (03:30)
[2017-01-05] MEDS: OXYCODONE GT PRN (03:30)
[2017-01-05 07:51] VITALS: BP 102/60
[2017-01-05] MEDS: METOPROLOL TARTRATE 25 MG TABLET GT SCH ×2 (08:45→17:59)
[2017-01-05] MEDS: FAMOTIDINE (20 MG) 20 MG TABLET GT SCH ×2 (08:45→21:46)
[2017-01-05] MEDS: ESCITALOPRAM OXALATE (10 MG) 10 MG TABLET GT SCH (08:45)
[2017-01-05] MEDS: HYDROCODONE/APAP 10/325MG 1 EA TABLET GT SCH ×2 (08:45→21:46)
[2017-01-05] MEDS: CLOPIDOGREL BISULFATE 75 MG TABLET PO SCH (08:45)
[2017-01-05] MEDS: CALCIUM CARBONATE 500 MG TAB.CHEW GT SCH ×3 (08:45→17:59)
[2017-01-05] MEDS: BACLOFEN (10 MG) 10 MG TABLET GT SCH ×4 (08:45→21:42)
[2017-01-05] MEDS: ASCORBIC ACID 500 MG TABLET GT SCH ×2 (08:45→17:59)
[2017-01-05] MEDS: GABAPENTIN 300 MG CAPSULE GT SCH ×3 (08:45→17:59)
[2017-01-05] MEDS: ACIDOPHILUS/BULGARICUS 1 EACH TAB.CHEW GT SCH ×3 (08:45→17:58)
[2017-01-05] MEDS: CALCITRIOL 0.25 MCG CAPSULE PO SCH (08:45)
[2017-01-05] MEDS: Z GUARD REMEDY 2 OZ OINT TP SCH ×4 (09:15→21:47)
[2017-01-05] MEDS: MINERAL OIL/PETROL OINT 396 GM JAR TP SCH ×3 (09:15→17:59)
[2017-01-05] MEDS: NEOMY SULF/BACITRAC ZN/POLY 15 GM TUBE TP SCH ×2 (09:15→21:47)
[2017-01-05] MEDS: GENTAMICIN 0.1% OINT 15 GM TUBE TP SCH ×4 (09:15→21:47)
[2017-01-05] MEDS: HYDROGEL DRESSING 90 GM TUBE TP SCH ×4 (09:15→21:46)
[2017-01-05] MEDS: HYDROGEN PEROXIDE 480 ML BOTTLE TP SCH ×2 (09:15→21:47)
[2017-01-05] MEDS: VITAMINS A AND D 56.7 GM TUBE TP SCH ×2 (09:15→21:47)
[2017-01-05] MEDS: ALDARA TP SCH (15:17)
[2017-01-05] MEDS: ENOXAPARIN SODIUM 40 MG/0.4 ML DISP.SYRIN SQ SCH (20:00)
[2017-01-05 20:01] VITALS: BP 105/66
[2017-01-05] MEDS: CRANBERRY GT SCH (21:42)
[2017-01-05] MEDS: POLYETHYLENE GLYCOL 3350 17 GM POWD.PACK GT SCH (21:43)
[2017-01-05] MEDS: PROSOURCE / PROSTAT (PYXIS) 30 ML UDC GT SCH (21:46)
[2017-01-05] MEDS: MULTIVIT, IRON, MIN NO. 8, FA 1 TAB GT SCH (21:46)
[2017-01-05] MEDS: ATORVASTATIN CALCIUM 20MG TABLET GT SCH (21:47)
[2017-01-06] MEDS: HYDROCODONE/APAP 5/325MG 1 EACH TABLET GT PRN (03:17)
[2017-01-06 07:31] VITALS: BP 105/70
[2017-01-06] MEDS: BACLOFEN (10 MG) 10 MG TABLET GT SCH ×4 (08:36→21:59)
[2017-01-06] MEDS: ACIDOPHILUS/BULGARICUS 1 EACH TAB.CHEW GT SCH ×3 (08:36→16:58)
[2017-01-06] MEDS: ESCITALOPRAM OXALATE (10 MG) 10 MG TABLET GT SCH (08:36)
[2017-01-06] MEDS: HYDROCODONE/APAP 10/325MG 1 EA TABLET GT SCH ×2 (08:37→21:59)
[2017-01-06] MEDS: ASCORBIC ACID 500 MG TABLET GT SCH ×2 (08:37→16:58)
[2017-01-06] MEDS: CALCITRIOL 0.25 MCG CAPSULE PO SCH (08:37)
[2017-01-06] MEDS: FAMOTIDINE (20 MG) 20 MG TABLET GT SCH ×2 (08:37→21:59)
[2017-01-06] MEDS: GABAPENTIN 300 MG CAPSULE GT SCH ×3 (08:37→16:58)
[2017-01-06] MEDS: CALCIUM CARBONATE 500 MG TAB.CHEW GT SCH ×3 (08:37→16:58)
[2017-01-06] MEDS: METOPROLOL TARTRATE 25 MG TABLET GT SCH ×2 (08:37→16:58)
[2017-01-06] MEDS: CLOPIDOGREL BISULFATE 75 MG TABLET PO SCH (08:37)
[2017-01-06] MEDS: GENTAMICIN 0.1% OINT 15 GM TUBE TP SCH ×4 (09:10→21:59)
[2017-01-06] MEDS: HYDROGEN PEROXIDE 480 ML BOTTLE TP SCH ×2 (09:10→21:59)
[2017-01-06] MEDS: VITAMINS A AND D 56.7 GM TUBE TP SCH ×2 (09:10→21:59)
[2017-01-06] MEDS: MINERAL OIL/PETROL OINT 396 GM JAR TP SCH ×3 (09:10→16:58)
[2017-01-06] MEDS: HYDROGEL DRESSING 90 GM TUBE TP SCH ×4 (09:10→22:00)
[2017-01-06] MEDS: Z GUARD REMEDY 2 OZ OINT TP SCH ×4 (09:10→21:59)
[2017-01-06] MEDS: NEOMY SULF/BACITRAC ZN/POLY 15 GM TUBE TP SCH ×2 (09:10→21:59)
[2017-01-06] MEDS: APAP GT PRN (18:46)
[2017-01-06] MEDS: OXYCODONE GT PRN (18:46)
[2017-01-06 19:40] VITALS: BP 135/70
[2017-01-06] MEDS: ENOXAPARIN SODIUM 40 MG/0.4 ML DISP.SYRIN SQ SCH (20:55)
[2017-01-06] MEDS: CRANBERRY GT SCH (21:59)
[2017-01-06] MEDS: MULTIVIT, IRON, MIN NO. 8, FA 1 TAB GT SCH (21:59)
[2017-01-06] MEDS: POLYETHYLENE GLYCOL 3350 17 GM POWD.PACK GT SCH (21:59)
[2017-01-06] MEDS: PROSOURCE / PROSTAT (PYXIS) 30 ML UDC GT SCH (21:59)
[2017-01-06] MEDS: ATORVASTATIN CALCIUM 20MG TABLET GT SCH (22:01)
[2017-01-07 07:30] VITALS: BP 153/85
[2017-01-07] MEDS: ACIDOPHILUS/BULGARICUS 1 EACH TAB.CHEW GT SCH ×3 (09:00→17:00)
[2017-01-07] MEDS: METOPROLOL TARTRATE 25 MG TABLET GT SCH ×2 (09:00→17:00)
[2017-01-07] MEDS: GABAPENTIN 300 MG CAPSULE GT SCH ×3 (09:00→17:00)
[2017-01-07] MEDS: FAMOTIDINE (20 MG) 20 MG TABLET GT SCH ×2 (09:00→21:46)
[2017-01-07] MEDS: BACLOFEN (10 MG) 10 MG TABLET GT SCH ×4 (09:00→21:45)
[2017-01-07] MEDS: CLOPIDOGREL BISULFATE 75 MG TABLET PO SCH (09:00)
[2017-01-07] MEDS: HYDROCODONE/APAP 10/325MG 1 EA TABLET GT SCH ×3 (09:00→21:46)
[2017-01-07] MEDS: CALCIUM CARBONATE 500 MG TAB.CHEW GT SCH ×3 (09:00→17:00)
[2017-01-07] MEDS: ESCITALOPRAM OXALATE (10 MG) 10 MG TABLET GT SCH (09:00)
[2017-01-07] MEDS: ASCORBIC ACID 500 MG TABLET GT SCH ×2 (09:00→17:00)
[2017-01-07] MEDS: CALCITRIOL 0.25 MCG CAPSULE PO SCH (09:00)
[2017-01-07] MEDS: APAP GT PRN (10:52)
[2017-01-07] MEDS: OXYCODONE GT PRN (10:52)
[2017-01-07] MEDS: MINERAL OIL/PETROL OINT 396 GM JAR TP SCH ×3 (13:00→17:00)
[2017-01-07] MEDS: HYDROGEL DRESSING 90 GM TUBE TP SCH ×4 (15:15→21:46)
[2017-01-07] MEDS: NEOMY SULF/BACITRAC ZN/POLY 15 GM TUBE TP SCH (15:15)
[2017-01-07] MEDS: VITAMINS A AND D 56.7 GM TUBE TP SCH ×2 (15:15→21:47)
[2017-01-07] MEDS: GENTAMICIN 0.1% OINT 15 GM TUBE TP SCH ×4 (15:15→21:46)
[2017-01-07] MEDS: Z GUARD REMEDY 2 OZ OINT TP SCH ×4 (15:15→21:47)
[2017-01-07] MEDS: HYDROGEN PEROXIDE 480 ML BOTTLE TP SCH ×2 (15:15→21:47)
[2017-01-07 19:33] VITALS: BP 118/78
[2017-01-07] MEDS: ENOXAPARIN SODIUM 40 MG/0.4 ML DISP.SYRIN SQ SCH (20:58)
[2017-01-07] MEDS: POLYETHYLENE GLYCOL 3350 17 GM POWD.PACK GT SCH (21:45)
[2017-01-07] MEDS: CRANBERRY GT SCH (21:45)
[2017-01-07] MEDS: PROSOURCE / PROSTAT (PYXIS) 30 ML UDC GT SCH (21:46)
[2017-01-07] MEDS: MULTIVIT, IRON, MIN NO. 8, FA 1 TAB GT SCH (21:46)
[2017-01-07] MEDS: ATORVASTATIN CALCIUM 20MG TABLET GT SCH (21:47)
[2017-01-08] MEDS: APAP GT PRN (04:45)
[2017-01-08] MEDS: OXYCODONE GT PRN (04:45)
[2017-01-08 07:58] VITALS: BP 127/72
[2017-01-08] MEDS: ASCORBIC ACID 500 MG TABLET GT SCH ×2 (09:00→17:22)
[2017-01-08] MEDS: ACIDOPHILUS/BULGARICUS 1 EACH TAB.CHEW GT SCH ×3 (09:00→17:21)
[2017-01-08] MEDS: MINERAL OIL/PETROL OINT 396 GM JAR TP SCH ×3 (09:00→17:22)
[2017-01-08] MEDS: BACLOFEN (10 MG) 10 MG TABLET GT SCH ×4 (09:00→21:54)
[2017-01-08] MEDS: ESCITALOPRAM OXALATE (10 MG) 10 MG TABLET GT SCH (09:00)
[2017-01-08] MEDS: GABAPENTIN 300 MG CAPSULE GT SCH ×3 (09:00→17:21)
[2017-01-08] MEDS: CALCITRIOL 0.25 MCG CAPSULE PO SCH (09:00)
[2017-01-08] MEDS: CALCIUM CARBONATE 500 MG TAB.CHEW GT SCH ×3 (09:00→17:22)
[2017-01-08] MEDS: CLOPIDOGREL BISULFATE 75 MG TABLET PO SCH (09:00)
[2017-01-08] MEDS: METOPROLOL TARTRATE 25 MG TABLET GT SCH ×2 (09:00→17:21)
[2017-01-08] MEDS: FAMOTIDINE (20 MG) 20 MG TABLET GT SCH ×2 (09:00→21:55)
[2017-01-08] MEDS: HYDROCODONE/APAP 10/325MG 1 EA TABLET GT SCH ×2 (10:30→21:55)
[2017-01-08] MEDS: HYDROGEL DRESSING 90 GM TUBE TP SCH ×4 (11:00→21:56)
[2017-01-08] MEDS: GENTAMICIN 0.1% OINT 15 GM TUBE TP SCH ×4 (11:00→21:56)
[2017-01-08] MEDS: Z GUARD REMEDY 2 OZ OINT TP SCH ×4 (11:00→21:56)
[2017-01-08] MEDS: VITAMINS A AND D 56.7 GM TUBE TP SCH ×2 (11:00→21:56)
[2017-01-08] MEDS: HYDROGEN PEROXIDE 480 ML BOTTLE TP SCH ×2 (11:00→21:56)
[2017-01-08 19:41] VITALS: BP 133/87
[2017-01-08] MEDS: ENOXAPARIN SODIUM 40 MG/0.4 ML DISP.SYRIN SQ SCH (20:00)
[2017-01-08] MEDS: CRANBERRY GT SCH (21:54)
[2017-01-08] MEDS: PROSOURCE / PROSTAT (PYXIS) 30 ML UDC GT SCH (21:55)
[2017-01-08] MEDS: POLYETHYLENE GLYCOL 3350 17 GM POWD.PACK GT SCH (21:55)
[2017-01-08] MEDS: MULTIVIT, IRON, MIN NO. 8, FA 1 TAB GT SCH (21:56)
[2017-01-08] MEDS: ATORVASTATIN CALCIUM 20MG TABLET GT SCH (21:57)
[2017-01-09] MEDS: HYDROCODONE/APAP 5/325MG 1 EACH TABLET GT PRN ×2 (04:32→18:20)
[2017-01-09] MEDS: BACLOFEN (10 MG) 10 MG TABLET GT SCH ×4 (08:41→21:00)
[2017-01-09] MEDS: ESCITALOPRAM OXALATE (10 MG) 10 MG TABLET GT SCH (08:41)
[2017-01-09] MEDS: ACIDOPHILUS/BULGARICUS 1 EACH TAB.CHEW GT SCH ×3 (08:41→17:00)
[2017-01-09] MEDS: GABAPENTIN 300 MG CAPSULE GT SCH ×3 (08:41→17:00)
[2017-01-09] MEDS: FAMOTIDINE (20 MG) 20 MG TABLET GT SCH ×2 (08:41→21:00)
[2017-01-09] MEDS: METOPROLOL TARTRATE 25 MG TABLET GT SCH ×2 (08:41→17:00)
[2017-01-09] MEDS: CLOPIDOGREL BISULFATE 75 MG TABLET PO SCH (08:42)
[2017-01-09] MEDS: CALCITRIOL 0.25 MCG CAPSULE PO SCH (08:42)
[2017-01-09] MEDS: CALCIUM CARBONATE 500 MG TAB.CHEW GT SCH ×3 (08:42→17:00)
[2017-01-09] MEDS: ASCORBIC ACID 500 MG TABLET GT SCH ×2 (08:42→17:00)
[2017-01-09] MEDS: HYDROCODONE/APAP 10/325MG 1 EA TABLET GT SCH ×2 (09:00→21:00)
[2017-01-09] MEDS: Z GUARD REMEDY 2 OZ OINT TP SCH ×4 (09:00→21:00)
[2017-01-09] MEDS: HYDROGEL DRESSING 90 GM TUBE TP SCH ×4 (09:00→21:00)
[2017-01-09] MEDS: HYDROGEN PEROXIDE 480 ML BOTTLE TP SCH ×2 (09:00→21:00)
[2017-01-09] MEDS: MINERAL OIL/PETROL OINT 396 GM JAR TP SCH ×3 (09:00→17:00)
[2017-01-09] MEDS: GENTAMICIN 0.1% OINT 15 GM TUBE TP SCH ×4 (09:00→21:00)
[2017-01-09] MEDS: VITAMINS A AND D 56.7 GM TUBE TP SCH ×2 (09:00→21:00)
[2017-01-09 09:02] VITALS: BP 129/80
--- NOTE | 2017-01-09 09:20 | NUR ---
ms vinh norco 1 tab gt given for generalized pain, will reevaluate later.
--- NOTE | 2017-01-09 09:50 | NUR ---
ms rn pain was releived by [place],will monitor patient.
--- NOTE | 2017-01-09 14:00 | NUR ---
Seen and examined by Peggy Hoffman NP for Dr. Ugarte NNO given.
[2017-01-09] MEDS: ALDARA TP SCH (15:17)
[2017-01-09] MEDS: ENOXAPARIN SODIUM 40 MG/0.4 ML DISP.SYRIN SQ SCH (20:00)
[2017-01-09 20:03] VITALS: BP 143/76
[2017-01-09] MEDS: POLYETHYLENE GLYCOL 3350 17 GM POWD.PACK GT SCH (21:00)
[2017-01-09] MEDS: PROSOURCE / PROSTAT (PYXIS) 30 ML UDC GT SCH (21:00)
[2017-01-09] MEDS: CRANBERRY GT SCH (21:00)
[2017-01-09] MEDS: MULTIVIT, IRON, MIN NO. 8, FA 1 TAB GT SCH (22:00)
[2017-01-09] MEDS: ATORVASTATIN CALCIUM 20MG TABLET GT SCH (22:05)
[2017-01-10 07:52] VITALS: BP 120/79
[2017-01-10] MEDS: BACLOFEN (10 MG) 10 MG TABLET GT SCH ×4 (08:18→21:00)
[2017-01-10] MEDS: METOPROLOL TARTRATE 25 MG TABLET GT SCH ×2 (08:18→17:06)
[2017-01-10] MEDS: ACIDOPHILUS/BULGARICUS 1 EACH TAB.CHEW GT SCH ×3 (08:18→17:05)
[2017-01-10] MEDS: ESCITALOPRAM OXALATE (10 MG) 10 MG TABLET GT SCH (08:18)
[2017-01-10] MEDS: CALCITRIOL 0.25 MCG CAPSULE PO SCH (08:19)
[2017-01-10] MEDS: CLOPIDOGREL BISULFATE 75 MG TABLET PO SCH (08:19)
[2017-01-10] MEDS: GABAPENTIN 300 MG CAPSULE GT SCH ×3 (08:19→17:06)
[2017-01-10] MEDS: CALCIUM CARBONATE 500 MG TAB.CHEW GT SCH ×3 (08:19→17:06)
[2017-01-10] MEDS: HYDROCODONE/APAP 10/325MG 1 EA TABLET GT SCH ×2 (08:19→21:00)
[2017-01-10] MEDS: FAMOTIDINE (20 MG) 20 MG TABLET GT SCH ×2 (08:19→21:00)
[2017-01-10] MEDS: ASCORBIC ACID 500 MG TABLET GT SCH ×2 (08:19→17:06)
[2017-01-10] MEDS: GENTAMICIN 0.1% OINT 15 GM TUBE TP SCH ×4 (08:20→21:00)
[2017-01-10] MEDS: Z GUARD REMEDY 2 OZ OINT TP SCH ×4 (08:20→21:00)
[2017-01-10] MEDS: VITAMINS A AND D 56.7 GM TUBE TP SCH ×2 (08:20→21:00)
[2017-01-10] MEDS: HYDROGEL DRESSING 90 GM TUBE TP SCH ×4 (08:20→21:00)
[2017-01-10] MEDS: HYDROGEN PEROXIDE 480 ML BOTTLE TP SCH ×2 (08:20→21:00)
[2017-01-10] MEDS: MINERAL OIL/PETROL OINT 396 GM JAR TP SCH ×3 (08:20→17:06)
[2017-01-10 19:54] VITALS: BP 105/77
[2017-01-10] MEDS: ENOXAPARIN SODIUM 40 MG/0.4 ML DISP.SYRIN SQ SCH (20:00)
[2017-01-10] MEDS: POLYETHYLENE GLYCOL 3350 17 GM POWD.PACK GT SCH (21:00)
[2017-01-10] MEDS: PROSOURCE / PROSTAT (PYXIS) 30 ML UDC GT SCH (21:00)
[2017-01-10] MEDS: CRANBERRY GT SCH (21:00)
[2017-01-10] MEDS: MULTIVIT, IRON, MIN NO. 8, FA 1 TAB GT SCH (22:06)
[2017-01-10] MEDS: ATORVASTATIN CALCIUM 20MG TABLET GT SCH (22:12)
[2017-01-11 07:48] VITALS: BP 111/63
[2017-01-11] MEDS: Z GUARD REMEDY 2 OZ OINT TP SCH ×4 (09:00→21:55)
[2017-01-11] MEDS: VITAMINS A AND D 56.7 GM TUBE TP SCH ×2 (09:00→21:55)
[2017-01-11] MEDS: METOPROLOL TARTRATE 25 MG TABLET GT SCH ×2 (09:00→16:49)
[2017-01-11] MEDS: MINERAL OIL/PETROL OINT 396 GM JAR TP SCH ×3 (09:00→16:49)
[2017-01-11] MEDS: GABAPENTIN 300 MG CAPSULE GT SCH ×3 (09:00→16:49)
[2017-01-11] MEDS: HYDROGEN PEROXIDE 480 ML BOTTLE TP SCH ×2 (09:00→21:55)
[2017-01-11] MEDS: CALCIUM CARBONATE 500 MG TAB.CHEW GT SCH ×3 (09:00→16:49)
[2017-01-11] MEDS: ESCITALOPRAM OXALATE (10 MG) 10 MG TABLET GT SCH (09:00)
[2017-01-11] MEDS: CALCITRIOL 0.25 MCG CAPSULE PO SCH (09:00)
[2017-01-11] MEDS: HYDROGEL DRESSING 90 GM TUBE TP SCH ×4 (09:00→21:55)
[2017-01-11] MEDS: CLOPIDOGREL BISULFATE 75 MG TABLET PO SCH (09:00)
[2017-01-11] MEDS: BACLOFEN (10 MG) 10 MG TABLET GT SCH ×4 (09:00→21:55)
[2017-01-11] MEDS: HYDROCODONE/APAP 10/325MG 1 EA TABLET GT SCH ×2 (09:00→21:55)
[2017-01-11] MEDS: ASCORBIC ACID 500 MG TABLET GT SCH ×2 (09:00→16:49)
[2017-01-11] MEDS: GENTAMICIN 0.1% OINT 15 GM TUBE TP SCH ×4 (09:00→21:55)
[2017-01-11] MEDS: FAMOTIDINE (20 MG) 20 MG TABLET GT SCH ×2 (09:00→21:55)
[2017-01-11] MEDS: ACIDOPHILUS/BULGARICUS 1 EACH TAB.CHEW GT SCH ×3 (09:56→16:49)
--- NOTE | 2017-01-11 19:00 | NUR ---
Seen by Peggy Hoffman NP for HUBERT Dill given at this time.
[2017-01-11] MEDS: PROSOURCE / PROSTAT (PYXIS) 30 ML UDC GT SCH (21:55)
[2017-01-11] MEDS: POLYETHYLENE GLYCOL 3350 17 GM POWD.PACK GT SCH (21:55)
[2017-01-11] MEDS: CRANBERRY GT SCH (21:55)
[2017-01-11] MEDS: MULTIVIT, IRON, MIN NO. 8, FA 1 TAB GT SCH (21:55)
[2017-01-11] MEDS: ENOXAPARIN SODIUM 40 MG/0.4 ML DISP.SYRIN SQ SCH (21:55)
[2017-01-11] MEDS: ATORVASTATIN CALCIUM 20MG TABLET GT SCH (22:03)
[2017-01-11 23:40] VITALS: BP 112/66
[2017-01-12] MEDS: OXYCODONE GT PRN (01:24)
[2017-01-12] MEDS: APAP GT PRN (01:24)
[2017-01-12 07:46] VITALS: BP 121/76
[2017-01-12] MEDS: ESCITALOPRAM OXALATE (10 MG) 10 MG TABLET GT SCH (09:04)
[2017-01-12] MEDS: ACIDOPHILUS/BULGARICUS 1 EACH TAB.CHEW GT SCH ×3 (09:04→17:23)
[2017-01-12] MEDS: METOPROLOL TARTRATE 25 MG TABLET GT SCH ×2 (09:05→17:24)
[2017-01-12] MEDS: BACLOFEN (10 MG) 10 MG TABLET GT SCH ×4 (09:05→20:40)
[2017-01-12] MEDS: CALCIUM CARBONATE 500 MG TAB.CHEW GT SCH ×3 (09:06→17:25)
[2017-01-12] MEDS: GABAPENTIN 300 MG CAPSULE GT SCH ×3 (09:06→17:24)
[2017-01-12] MEDS: ASCORBIC ACID 500 MG TABLET GT SCH ×2 (09:06→17:25)
[2017-01-12] MEDS: FAMOTIDINE (20 MG) 20 MG TABLET GT SCH ×2 (09:06→20:40)
[2017-01-12] MEDS: CLOPIDOGREL BISULFATE 75 MG TABLET PO SCH (09:06)
[2017-01-12] MEDS: CALCITRIOL 0.25 MCG CAPSULE PO SCH (09:07)
[2017-01-12] MEDS: MINERAL OIL/PETROL OINT 396 GM JAR TP SCH ×3 (09:07→17:25)
[2017-01-12] MEDS: HYDROCODONE/APAP 10/325MG 1 EA TABLET GT SCH ×2 (10:36→21:36)
[2017-01-12] MEDS: VITAMINS A AND D 56.7 GM TUBE TP SCH ×2 (11:15→22:00)
[2017-01-12] MEDS: HYDROGEL DRESSING 90 GM TUBE TP SCH ×4 (11:15→22:00)
[2017-01-12] MEDS: Z GUARD REMEDY 2 OZ OINT TP SCH ×4 (11:15→22:00)
[2017-01-12] MEDS: HYDROGEN PEROXIDE 480 ML BOTTLE TP SCH ×2 (11:15→22:00)
[2017-01-12] MEDS: GENTAMICIN 0.1% OINT 15 GM TUBE TP SCH ×4 (11:15→22:00)
[2017-01-12] MEDS: ALDARA TP SCH (15:17)
[2017-01-12] MEDS: ENOXAPARIN SODIUM 40 MG/0.4 ML DISP.SYRIN SQ SCH (20:37)
[2017-01-12] MEDS: PROSOURCE / PROSTAT (PYXIS) 30 ML UDC GT SCH (20:40)
[2017-01-12] MEDS: POLYETHYLENE GLYCOL 3350 17 GM POWD.PACK GT SCH (20:40)
[2017-01-12] MEDS: MULTIVIT, IRON, MIN NO. 8, FA 1 TAB GT SCH (20:40)
[2017-01-12] MEDS: CRANBERRY GT SCH (20:40)
[2017-01-12] MEDS: ATORVASTATIN CALCIUM 20MG TABLET GT SCH (22:13)
[2017-01-12 22:30] VITALS: BP 113/61
[2017-01-13] MEDS: OXYCODONE GT PRN (05:56)
[2017-01-13] MEDS: APAP GT PRN (05:56)
[2017-01-13 08:25] VITALS: BP 123/64
[2017-01-13] MEDS: ACIDOPHILUS/BULGARICUS 1 EACH TAB.CHEW GT SCH ×3 (08:35→17:36)
[2017-01-13] MEDS: METOPROLOL TARTRATE 25 MG TABLET GT SCH ×2 (08:36→17:36)
[2017-01-13] MEDS: ESCITALOPRAM OXALATE (10 MG) 10 MG TABLET GT SCH (08:36)
[2017-01-13] MEDS: BACLOFEN (10 MG) 10 MG TABLET GT SCH ×4 (08:36→21:06)
[2017-01-13] MEDS: GABAPENTIN 300 MG CAPSULE GT SCH ×3 (08:37→17:36)
[2017-01-13] MEDS: CALCIUM CARBONATE 500 MG TAB.CHEW GT SCH ×3 (08:37→17:36)
[2017-01-13] MEDS: ASCORBIC ACID 500 MG TABLET GT SCH ×2 (08:37→17:36)
[2017-01-13] MEDS: FAMOTIDINE (20 MG) 20 MG TABLET GT SCH ×2 (08:37→21:07)
[2017-01-13] MEDS: CALCITRIOL 0.25 MCG CAPSULE PO SCH (08:37)
[2017-01-13] MEDS: CLOPIDOGREL BISULFATE 75 MG TABLET PO SCH (08:37)
[2017-01-13] MEDS: MINERAL OIL/PETROL OINT 396 GM JAR TP SCH ×3 (08:38→17:36)
[2017-01-13] MEDS: HYDROCODONE/APAP 10/325MG 1 EA TABLET GT SCH ×2 (10:36→21:27)
[2017-01-13] MEDS: HYDROGEN PEROXIDE 480 ML BOTTLE TP SCH ×2 (11:15→22:00)
[2017-01-13] MEDS: HYDROGEL DRESSING 90 GM TUBE TP SCH ×4 (11:15→22:00)
[2017-01-13] MEDS: VITAMINS A AND D 56.7 GM TUBE TP SCH ×2 (11:15→22:00)
[2017-01-13] MEDS: Z GUARD REMEDY 2 OZ OINT TP SCH ×4 (11:15→22:00)
[2017-01-13] MEDS: GENTAMICIN 0.1% OINT 15 GM TUBE TP SCH ×4 (11:15→22:00)
[2017-01-13] MEDS: ENOXAPARIN SODIUM 40 MG/0.4 ML DISP.SYRIN SQ SCH (20:00)
[2017-01-13] MEDS: POLYETHYLENE GLYCOL 3350 17 GM POWD.PACK GT SCH (21:06)
[2017-01-13] MEDS: CRANBERRY GT SCH (21:06)
[2017-01-13] MEDS: PROSOURCE / PROSTAT (PYXIS) 30 ML UDC GT SCH (21:07)
[2017-01-13] MEDS: MULTIVIT, IRON, MIN NO. 8, FA 1 TAB GT SCH (21:07)
[2017-01-13] MEDS: ATORVASTATIN CALCIUM 20MG TABLET GT SCH (21:27)
[2017-01-13 23:48] VITALS: BP 108/77
[2017-01-14] MEDS: ACIDOPHILUS/BULGARICUS 1 EACH TAB.CHEW GT SCH ×3 (08:31→16:40)
[2017-01-14] MEDS: BACLOFEN (10 MG) 10 MG TABLET GT SCH ×4 (08:31→21:16)
[2017-01-14] MEDS: METOPROLOL TARTRATE 25 MG TABLET GT SCH ×2 (08:31→16:40)
[2017-01-14] MEDS: GABAPENTIN 300 MG CAPSULE GT SCH ×3 (08:31→16:40)
[2017-01-14] MEDS: ESCITALOPRAM OXALATE (10 MG) 10 MG TABLET GT SCH (08:31)
[2017-01-14] MEDS: MINERAL OIL/PETROL OINT 396 GM JAR TP SCH ×3 (08:32→16:40)
[2017-01-14] MEDS: CLOPIDOGREL BISULFATE 75 MG TABLET PO SCH (08:32)
[2017-01-14] MEDS: CALCITRIOL 0.25 MCG CAPSULE PO SCH (08:32)
[2017-01-14] MEDS: HYDROCODONE/APAP 10/325MG 1 EA TABLET GT SCH ×2 (08:32→21:17)
[2017-01-14] MEDS: FAMOTIDINE (20 MG) 20 MG TABLET GT SCH ×2 (08:32→21:17)
[2017-01-14] MEDS: CALCIUM CARBONATE 500 MG TAB.CHEW GT SCH ×3 (08:32→16:40)
[2017-01-14] MEDS: ASCORBIC ACID 500 MG TABLET GT SCH ×2 (08:32→16:40)
[2017-01-14] MEDS: VITAMINS A AND D 56.7 GM TUBE TP SCH ×2 (09:00→21:18)
[2017-01-14] MEDS: HYDROGEL DRESSING 90 GM TUBE TP SCH ×4 (09:32→21:18)
[2017-01-14] MEDS: Z GUARD REMEDY 2 OZ OINT TP SCH ×4 (09:32→21:18)
[2017-01-14] MEDS: HYDROGEN PEROXIDE 480 ML BOTTLE TP SCH ×2 (09:32→21:18)
[2017-01-14] MEDS: GENTAMICIN 0.1% OINT 15 GM TUBE TP SCH ×4 (09:32→21:18)
--- NOTE | 2017-01-14 10:29 | NUR ---
Seen and examined by Dr. Walker, obtain order for GI consult for GT replacement due to old GT. Dr. Cox notified, he said he will be in this afternoon if not he will see patient tomorrow. Endorsed.
[2017-01-14] MEDS: APAP GT PRN (13:17)
[2017-01-14] MEDS: OXYCODONE GT PRN (13:17)
--- NOTE | 2017-01-14 15:00 | NUR ---
Seen and examined by Dr. Cox, GI, assessed gastrostomy tube for replacement. New order given to obtain consent for EGD and GT replacement. Left a message to Vilma, responsible green party.
--- NOTE | 2017-01-14 17:27 | NUR ---
Vilma, resident's sister in law returned the call acknowledging that she received the message. Explained to family the procedure that will be done and why it is recommended. She expressed that she is giving the consent but will call back on Monday to give the consent on the day of the procedure to be current.
[2017-01-14 19:53] VITALS: BP 141/86
[2017-01-14] MEDS: ENOXAPARIN SODIUM 40 MG/0.4 ML DISP.SYRIN SQ SCH (20:00)
[2017-01-14] MEDS: CRANBERRY GT SCH (21:16)
[2017-01-14] MEDS: POLYETHYLENE GLYCOL 3350 17 GM POWD.PACK GT SCH (21:16)
[2017-01-14] MEDS: PROSOURCE / PROSTAT (PYXIS) 30 ML UDC GT SCH (21:17)
[2017-01-14] MEDS: MULTIVIT, IRON, MIN NO. 8, FA 1 TAB GT SCH (21:18)
[2017-01-14] MEDS: ATORVASTATIN CALCIUM 20MG TABLET GT SCH (21:18)
[2017-01-15] MEDS: HYDROCODONE/APAP 5/325MG 1 EACH TABLET GT PRN (01:58)
[2017-01-15 07:40] VITALS: BP 143/91
[2017-01-15] MEDS: HYDROCODONE/APAP 10/325MG 1 EA TABLET GT SCH ×2 (09:00→21:10)
[2017-01-15] MEDS: ESCITALOPRAM OXALATE (10 MG) 10 MG TABLET GT SCH (09:00)
[2017-01-15] MEDS: Z GUARD REMEDY 2 OZ OINT TP SCH ×4 (09:00→21:11)
[2017-01-15] MEDS: GENTAMICIN 0.1% OINT 15 GM TUBE TP SCH ×4 (09:00→21:11)
[2017-01-15] MEDS: CALCITRIOL 0.25 MCG CAPSULE PO SCH (09:00)
[2017-01-15] MEDS: CALCIUM CARBONATE 500 MG TAB.CHEW GT SCH ×3 (09:00→17:49)
[2017-01-15] MEDS: HYDROGEL DRESSING 90 GM TUBE TP SCH ×4 (09:00→21:10)
[2017-01-15] MEDS: VITAMINS A AND D 56.7 GM TUBE TP SCH ×2 (09:00→21:11)
[2017-01-15] MEDS: CLOPIDOGREL BISULFATE 75 MG TABLET PO SCH (09:00)
[2017-01-15] MEDS: ACIDOPHILUS/BULGARICUS 1 EACH TAB.CHEW GT SCH ×3 (09:00→17:48)
[2017-01-15] MEDS: MINERAL OIL/PETROL OINT 396 GM JAR TP SCH ×3 (09:00→17:49)
[2017-01-15] MEDS: ASCORBIC ACID 500 MG TABLET GT SCH ×2 (09:00→17:49)
[2017-01-15] MEDS: BACLOFEN (10 MG) 10 MG TABLET GT SCH ×4 (09:00→21:10)
[2017-01-15] MEDS: GABAPENTIN 300 MG CAPSULE GT SCH ×3 (09:00→17:48)
[2017-01-15] MEDS: FAMOTIDINE (20 MG) 20 MG TABLET GT SCH ×2 (09:00→21:10)
[2017-01-15] MEDS: HYDROGEN PEROXIDE 480 ML BOTTLE TP SCH ×2 (09:00→21:11)
[2017-01-15] MEDS: METOPROLOL TARTRATE 25 MG TABLET GT SCH ×2 (09:00→17:48)
--- NOTE | 2017-01-15 14:30 | NUR ---
Patients' sister in law (Vilma) called back, obtained telephone consent for GT replacement and EGD mayte.
--- NOTE | 2017-01-15 17:50 | NUR ---
Dr. Cox called and confirmed he will do GT replacement and EGD mayte at 10:30 am in GI LAB. He reminded patient to be NPO post midnight and needs consent. Noted and carried out.
[2017-01-15] MEDS: ENOXAPARIN SODIUM 40 MG/0.4 ML DISP.SYRIN SQ SCH (20:00)
[2017-01-15] MEDS: CRANBERRY GT SCH (21:10)
[2017-01-15] MEDS: PROSOURCE / PROSTAT (PYXIS) 30 ML UDC GT SCH (21:10)
[2017-01-15] MEDS: MULTIVIT, IRON, MIN NO. 8, FA 1 TAB GT SCH (21:10)
[2017-01-15] MEDS: POLYETHYLENE GLYCOL 3350 17 GM POWD.PACK GT SCH (21:10)
[2017-01-15] MEDS: ATORVASTATIN CALCIUM 20MG TABLET GT SCH (21:11)
[2017-01-15 21:41] VITALS: BP 105/69
[2017-01-16] MEDS: HYDROCODONE/APAP 5/325MG 1 EACH TABLET GT PRN ×2 (01:59→08:57)
[2017-01-16] MEDS: ESCITALOPRAM OXALATE (10 MG) 10 MG TABLET GT SCH (09:01)
[2017-01-16] MEDS: ASCORBIC ACID 500 MG TABLET GT SCH ×2 (09:01→16:50)
[2017-01-16] MEDS: FAMOTIDINE (20 MG) 20 MG TABLET GT SCH ×2 (09:01→21:18)
[2017-01-16] MEDS: GABAPENTIN 300 MG CAPSULE GT SCH ×3 (09:01→16:51)
[2017-01-16] MEDS: BACLOFEN (10 MG) 10 MG TABLET GT SCH ×4 (09:01→21:18)
[2017-01-16] MEDS: CALCIUM CARBONATE 500 MG TAB.CHEW GT SCH ×3 (09:01→16:51)
[2017-01-16] MEDS: ACIDOPHILUS/BULGARICUS 1 EACH TAB.CHEW GT SCH ×3 (09:01→16:51)
[2017-01-16] MEDS: METOPROLOL TARTRATE 25 MG TABLET GT SCH ×2 (09:01→16:50)
[2017-01-16] MEDS: CLOPIDOGREL BISULFATE 75 MG TABLET PO SCH (09:01)
[2017-01-16] MEDS: CALCITRIOL 0.25 MCG CAPSULE PO SCH (09:02)
[2017-01-16] MEDS: MINERAL OIL/PETROL OINT 396 GM JAR TP SCH ×3 (09:02→16:51)
--- NOTE | 2017-01-16 11:00 | NUR ---
Pt was picked up by day surgery staff. Pt was awake and responsive, in stable condition.
[2017-01-16 11:04] VITALS: BP 132/89
[2017-01-16 11:25] LABS: BASOPHILS % (AUTO) 0.5 % (0.0-2.0); EOSINOPHILS # (AUTO) 0.2 /CMM (0.0-0.7); LYMPHOCYTES # (AUTO) 1.4 /CMM (0.8-4.8); MONOCYTES # (AUTO) 0.6 /CMM (0.1-1.30); PLATELET COUNT (AUTO) 294 /CMM (150-450)
[2017-01-16 11:27] LABS: EOSINOPHILS % (AUTO) 2.6 % (0.0-6.0); HEMATOCRIT 37 % (39-51); HEMOGLOBIN 11.6 g/dL (13.5-17.5); LYMPHOCYTES % (AUTO) 19.7 % (20.0-44.0); MEAN CORPUSCULAR HEMOGLOBIN 27 PG (26.0-33.0); MEAN CORPUSCULAR HGB CONC 32 g/dl (31.0-36.0); MEAN CORPUSCULAR VOLUME 87 fL (80-96); MONOCYTES % (AUTO) 8.3 % (2.0-12.0); NEUTROPHILS # (AUTO) 5.1 /CMM (1.8-8.9); NEUTROPHILS % (AUTO) 68.9 % (43.0-81.0); RDW COEFFICIENT OF VARIATION 17.5 (11.5-15.0); RED BLOOD CELL COUNT(AUTO) 4.25 MIL/uL (4.5-6.0); WHITE BLOOD COUNT (AUTO) 7.3 K/uL (4.3-11.0)
[2017-01-16 11:41] LABS: CREATININE 0.7 mg/dL (0.6-1.3); POTASSIUM 4.3 mmol/L (3.5-5.1)
[2017-01-16 11:42] LABS: INR 0.96 (0.87-1.13)
--- NOTE | 2017-01-16 12:00 | NUR ---
Patient came back from OR after G-Tube replacement with stable vital signs BP-123/77,P-66,R-16,T-98.1,O2-96%.Patient is asleep. Addendum: 01/16/17 at 1719 by ANA CALDERÓN RN Pt is awake and stable.
--- NOTE | 2017-01-16 12:00 | NUR ---
Called to ask when Gtube can be used and said it can be use right away. Addendum: 01/16/17 at 1258 by ANA CALDERÓN RN Clarified with about the iv and said no need for iv and ordered to resume all previous orders. Addendum: 01/16/17 at 1746 by ANA CALDERÓN RN patient GTube is replaced by [employer] FR#24/6ML.
[2017-01-16] MEDS: HYDROCODONE/APAP 10/325MG 1 EA TABLET GT SCH ×2 (12:15→21:18)
[2017-01-16] MEDS: GENTAMICIN 0.1% OINT 15 GM TUBE TP SCH ×4 (13:15→21:19)
[2017-01-16] MEDS: Z GUARD REMEDY 2 OZ OINT TP SCH ×4 (13:15→21:19)
[2017-01-16] MEDS: HYDROGEN PEROXIDE 480 ML BOTTLE TP SCH ×2 (13:15→21:19)
[2017-01-16] MEDS: HYDROGEL DRESSING 90 GM TUBE TP SCH ×4 (13:15→21:19)
[2017-01-16] MEDS: VITAMINS A AND D 56.7 GM TUBE TP SCH ×2 (13:15→21:19)
[2017-01-16] MEDS: ALDARA TP SCH (15:17)
[2017-01-16] MEDS: ENOXAPARIN SODIUM 40 MG/0.4 ML DISP.SYRIN SQ SCH (20:00)
[2017-01-16 20:57] VITALS: BP 156/99
[2017-01-16] MEDS: MULTIVIT, IRON, MIN NO. 8, FA 1 TAB GT SCH (21:18)
[2017-01-16] MEDS: CRANBERRY GT SCH (21:18)
[2017-01-16] MEDS: PROSOURCE / PROSTAT (PYXIS) 30 ML UDC GT SCH (21:18)
[2017-01-16] MEDS: POLYETHYLENE GLYCOL 3350 17 GM POWD.PACK GT SCH (21:18)
[2017-01-16] MEDS: ATORVASTATIN CALCIUM 20MG TABLET GT SCH (21:19)
[2017-01-17] MEDS: ACIDOPHILUS/BULGARICUS 1 EACH TAB.CHEW GT SCH ×3 (08:08→17:24)
[2017-01-17] MEDS: BACLOFEN (10 MG) 10 MG TABLET GT SCH ×4 (08:09→20:53)
[2017-01-17] MEDS: ESCITALOPRAM OXALATE (10 MG) 10 MG TABLET GT SCH (08:09)
[2017-01-17] MEDS: FAMOTIDINE (20 MG) 20 MG TABLET GT SCH ×2 (08:10→20:53)
[2017-01-17] MEDS: METOPROLOL TARTRATE 25 MG TABLET GT SCH ×2 (08:10→17:24)
[2017-01-17] MEDS: GABAPENTIN 300 MG CAPSULE GT SCH ×3 (08:10→17:24)
[2017-01-17] MEDS: CALCIUM CARBONATE 500 MG TAB.CHEW GT SCH ×3 (08:10→17:24)
[2017-01-17 08:11] VITALS: BP 140/81
[2017-01-17] MEDS: CALCITRIOL 0.25 MCG CAPSULE PO SCH (08:11)
[2017-01-17] MEDS: MINERAL OIL/PETROL OINT 396 GM JAR TP SCH ×3 (08:11→17:25)
[2017-01-17] MEDS: CLOPIDOGREL BISULFATE 75 MG TABLET PO SCH (08:11)
[2017-01-17] MEDS: ASCORBIC ACID 500 MG TABLET GT SCH ×2 (08:11→17:25)
[2017-01-17] MEDS: HYDROCODONE/APAP 10/325MG 1 EA TABLET GT SCH ×2 (10:32→20:53)
[2017-01-17] MEDS: GENTAMICIN 0.1% OINT 15 GM TUBE TP SCH ×4 (11:15→20:53)
[2017-01-17] MEDS: Z GUARD REMEDY 2 OZ OINT TP SCH ×4 (11:15→20:54)
[2017-01-17] MEDS: HYDROGEN PEROXIDE 480 ML BOTTLE TP SCH ×2 (11:15→20:53)
[2017-01-17] MEDS: VITAMINS A AND D 56.7 GM TUBE TP SCH ×2 (11:15→20:54)
[2017-01-17] MEDS: HYDROGEL DRESSING 90 GM TUBE TP SCH ×4 (11:15→20:53)
[2017-01-17] MEDS: APAP GT PRN (17:28)
[2017-01-17] MEDS: OXYCODONE GT PRN (17:28)
[2017-01-17 20:12] VITALS: BP 110/68
[2017-01-17] MEDS: ENOXAPARIN SODIUM 40 MG/0.4 ML DISP.SYRIN SQ SCH (20:52)
[2017-01-17] MEDS: PROSOURCE / PROSTAT (PYXIS) 30 ML UDC GT SCH (20:53)
[2017-01-17] MEDS: CRANBERRY GT SCH (20:53)
[2017-01-17] MEDS: POLYETHYLENE GLYCOL 3350 17 GM POWD.PACK GT SCH (20:53)
[2017-01-17] MEDS: MULTIVIT, IRON, MIN NO. 8, FA 1 TAB GT SCH (20:53)
[2017-01-17] MEDS: ATORVASTATIN CALCIUM 20MG TABLET GT SCH (22:13)
[2017-01-18] MEDS: HYDROCODONE/APAP 5/325MG 1 EACH TABLET GT PRN (00:41)
[2017-01-18 07:48] VITALS: BP 116/62
[2017-01-18] MEDS: ACIDOPHILUS/BULGARICUS 1 EACH TAB.CHEW GT SCH ×3 (08:11→17:47)
[2017-01-18] MEDS: HYDROCODONE/APAP 10/325MG 1 EA TABLET GT SCH ×2 (08:12→21:30)
[2017-01-18] MEDS: CALCITRIOL 0.25 MCG CAPSULE PO SCH (08:12)
[2017-01-18] MEDS: FAMOTIDINE (20 MG) 20 MG TABLET GT SCH ×2 (08:12→21:03)
[2017-01-18] MEDS: CALCIUM CARBONATE 500 MG TAB.CHEW GT SCH ×3 (08:12→17:48)
[2017-01-18] MEDS: ESCITALOPRAM OXALATE (10 MG) 10 MG TABLET GT SCH (08:12)
[2017-01-18] MEDS: METOPROLOL TARTRATE 25 MG TABLET GT SCH ×2 (08:12→17:48)
[2017-01-18] MEDS: GABAPENTIN 300 MG CAPSULE GT SCH ×3 (08:12→17:48)
[2017-01-18] MEDS: ASCORBIC ACID 500 MG TABLET GT SCH ×2 (08:12→17:48)
[2017-01-18] MEDS: CLOPIDOGREL BISULFATE 75 MG TABLET PO SCH (08:12)
[2017-01-18] MEDS: BACLOFEN (10 MG) 10 MG TABLET GT SCH ×4 (08:12→21:02)
[2017-01-18] MEDS: MINERAL OIL/PETROL OINT 396 GM JAR TP SCH ×3 (08:13→17:48)
[2017-01-18] MEDS: VITAMINS A AND D 56.7 GM TUBE TP SCH ×2 (09:00→22:00)
[2017-01-18] MEDS: HYDROGEN PEROXIDE 480 ML BOTTLE TP SCH ×2 (09:12→22:00)
[2017-01-18] MEDS: GENTAMICIN 0.1% OINT 15 GM TUBE TP SCH ×4 (09:12→22:00)
[2017-01-18] MEDS: HYDROGEL DRESSING 90 GM TUBE TP SCH ×4 (09:12→22:00)
[2017-01-18] MEDS: Z GUARD REMEDY 2 OZ OINT TP SCH ×4 (09:12→22:00)
[2017-01-18] MEDS: APAP GT PRN (11:27)
[2017-01-18] MEDS: OXYCODONE GT PRN (11:27)
[2017-01-18] MEDS: ACETAMINOPHEN 650 MG/20 ML UDC- FOR SA PATIENTS ONLY GT PRN (17:54)
--- NOTE | 2017-01-18 18:40 | NUR ---
S/P GT placement. Gt in place patent and no residual. No bleeding. Aspiration precautions maintained.
--- NOTE | 2017-01-18 18:50 | NUR ---
F/C changed 16 Danish/10 cc due to previous f/c noted dislodged with inflated balloon. Tolerated procedure well. All needs met and attended. F/C anchored well. Alert and oriented. Kept clean and comfortable.
[2017-01-18 19:56] VITALS: BP 98/58
[2017-01-18] MEDS: ENOXAPARIN SODIUM 40 MG/0.4 ML DISP.SYRIN SQ SCH (21:00)
[2017-01-18] MEDS: CRANBERRY GT SCH (21:00)
[2017-01-18] MEDS: POLYETHYLENE GLYCOL 3350 17 GM POWD.PACK GT SCH (21:02)
[2017-01-18] MEDS: PROSOURCE / PROSTAT (PYXIS) 30 ML UDC GT SCH (21:03)
[2017-01-18] MEDS: MULTIVIT, IRON, MIN NO. 8, FA 1 TAB GT SCH (21:03)
[2017-01-18] MEDS: ATORVASTATIN CALCIUM 20MG TABLET GT SCH (21:03)
[2017-01-19] MEDS: OXYCODONE GT PRN (04:32)
[2017-01-19] MEDS: APAP GT PRN (04:32)
--- NOTE | 2017-01-19 07:05 | NUR ---
S/P GT placement with no residual noted upon aspiration and auscultation during shift. No emesis noted
[2017-01-19 07:41] VITALS: BP 135/73
[2017-01-19] MEDS: BACLOFEN (10 MG) 10 MG TABLET GT SCH ×4 (08:48→21:54)
[2017-01-19] MEDS: ACIDOPHILUS/BULGARICUS 1 EACH TAB.CHEW GT SCH ×3 (08:48→17:00)
[2017-01-19] MEDS: ESCITALOPRAM OXALATE (10 MG) 10 MG TABLET GT SCH (08:48)
[2017-01-19] MEDS: GABAPENTIN 300 MG CAPSULE GT SCH ×3 (08:49→17:00)
[2017-01-19] MEDS: METOPROLOL TARTRATE 25 MG TABLET GT SCH ×2 (08:49→17:00)
[2017-01-19] MEDS: HYDROCODONE/APAP 10/325MG 1 EA TABLET GT SCH ×2 (08:50→21:54)
[2017-01-19] MEDS: FAMOTIDINE (20 MG) 20 MG TABLET GT SCH ×2 (08:50→21:54)
[2017-01-19] MEDS: MINERAL OIL/PETROL OINT 396 GM JAR TP SCH ×3 (08:50→17:00)
[2017-01-19] MEDS: CALCIUM CARBONATE 500 MG TAB.CHEW GT SCH ×3 (08:50→17:00)
[2017-01-19] MEDS: CALCITRIOL 0.25 MCG CAPSULE PO SCH (08:50)
[2017-01-19] MEDS: CLOPIDOGREL BISULFATE 75 MG TABLET PO SCH (08:50)
[2017-01-19] MEDS: ASCORBIC ACID 500 MG TABLET GT SCH ×2 (08:50→17:00)
[2017-01-19] MEDS: Z GUARD REMEDY 2 OZ OINT TP SCH ×4 (08:51→21:55)
[2017-01-19] MEDS: VITAMINS A AND D 56.7 GM TUBE TP SCH ×2 (08:51→21:56)
[2017-01-19] MEDS: HYDROGEN PEROXIDE 480 ML BOTTLE TP SCH ×2 (08:51→21:55)
[2017-01-19] MEDS: HYDROGEL DRESSING 90 GM TUBE TP SCH ×5 (09:00→21:55)
[2017-01-19] MEDS: GENTAMICIN 0.1% OINT 15 GM TUBE TP SCH ×4 (09:00→21:55)
[2017-01-19] MEDS: ALDARA TP SCH (15:17)
--- NOTE | 2017-01-19 15:50 | NUR ---
Per sister in law Esparza, she will be able to attend tomorrow's IDT meeting (12:30-1:30PM).
[2017-01-19] MEDS: ENOXAPARIN SODIUM 40 MG/0.4 ML DISP.SYRIN SQ SCH (20:00)
[2017-01-19 21:31] VITALS: BP 110/67
[2017-01-19] MEDS: CRANBERRY GT SCH (21:54)
[2017-01-19] MEDS: PROSOURCE / PROSTAT (PYXIS) 30 ML UDC GT SCH (21:54)
[2017-01-19] MEDS: POLYETHYLENE GLYCOL 3350 17 GM POWD.PACK GT SCH (21:54)
[2017-01-19] MEDS: MULTIVIT, IRON, MIN NO. 8, FA 1 TAB GT SCH (21:54)
[2017-01-19] MEDS: Z GUARD REMEDY 4 OZ OINT TP SCH (21:55)
[2017-01-19] MEDS: ATORVASTATIN CALCIUM 20MG TABLET GT SCH (21:56)
[2017-01-20] MEDS: HYDROCODONE/APAP 5/325MG 1 EACH TABLET GT PRN (04:11)
[2017-01-20 07:35] VITALS: BP 136/68
[2017-01-20] MEDS: ACIDOPHILUS/BULGARICUS 1 EACH TAB.CHEW GT SCH ×3 (08:41→17:01)
[2017-01-20] MEDS: BACLOFEN (10 MG) 10 MG TABLET GT SCH ×4 (08:42→21:21)
[2017-01-20] MEDS: ESCITALOPRAM OXALATE (10 MG) 10 MG TABLET GT SCH (08:42)
[2017-01-20] MEDS: GABAPENTIN 300 MG CAPSULE GT SCH ×3 (08:43→17:02)
[2017-01-20] MEDS: METOPROLOL TARTRATE 25 MG TABLET GT SCH ×2 (08:43→17:00)
[2017-01-20] MEDS: CALCIUM CARBONATE 500 MG TAB.CHEW GT SCH ×3 (08:44→17:03)
[2017-01-20] MEDS: ASCORBIC ACID 500 MG TABLET GT SCH ×2 (08:44→17:03)
[2017-01-20] MEDS: FAMOTIDINE (20 MG) 20 MG TABLET GT SCH ×2 (08:44→21:21)
[2017-01-20] MEDS: CLOPIDOGREL BISULFATE 75 MG TABLET PO SCH (08:44)
[2017-01-20] MEDS: HYDROGEN PEROXIDE 480 ML BOTTLE TP SCH ×2 (08:45→22:00)
[2017-01-20] MEDS: Z GUARD REMEDY 2 OZ OINT TP SCH ×4 (08:45→22:00)
[2017-01-20] MEDS: CALCITRIOL 0.25 MCG CAPSULE PO SCH (08:45)
[2017-01-20] MEDS: MINERAL OIL/PETROL OINT 396 GM JAR TP SCH ×3 (08:45→17:03)
[2017-01-20] MEDS: GENTAMICIN 0.1% OINT 15 GM TUBE TP SCH ×4 (08:45→22:00)
[2017-01-20] MEDS: HYDROGEL DRESSING 90 GM TUBE TP SCH ×4 (08:45→22:00)
[2017-01-20] MEDS: VITAMINS A AND D 56.7 GM TUBE TP SCH ×2 (08:46→22:00)
[2017-01-20] MEDS: Z GUARD REMEDY 4 OZ OINT TP SCH ×2 (08:46→22:00)
[2017-01-20] MEDS: HYDROCODONE/APAP 10/325MG 1 EA TABLET GT SCH ×2 (09:00→21:22)
[2017-01-20] MEDS: OXYCODONE GT PRN (14:51)
[2017-01-20] MEDS: APAP GT PRN (14:51)
--- NOTE | 2017-01-20 14:57 | NUR ---
INTERDISCIPLINARY PLAN OF CARE CONFERENCE was held today. Resident's sister in law Vilma was in attendance. New orders were reviewed. Dr. Ugarte and the interdisciplinary team reviewed the current plan of care in detail. Resident's weight has been stable. Jfyitg-np-ctn expressed concern that the resident appears to be losing his memory and this was discussed with Dr. Ugarte. Per Vilma, resident could not remember one of his friend's name and she was wondering if anything in particular was causing this memory loss. Per Dr. Ugarte, this is not caused by any of the medications and dulnqb-gt-zbta concerns were addressed during the IDT meeting. No new orders for the resident were given by Dr. Ugarte.
--- NOTE | 2017-01-20 15:26 | NUR ---
Per hfvjcw-ua-cqm Vilma she will be out of the country from February 03-March 01, 2016. Per her request, the unit may still call, email, or text her. She stated that she may not receive the messages right away but will eventually get them and respond.
[2017-01-20 20:19] VITALS: BP 125/86
[2017-01-20] MEDS: ENOXAPARIN SODIUM 40 MG/0.4 ML DISP.SYRIN SQ SCH (21:00)
[2017-01-20] MEDS: POLYETHYLENE GLYCOL 3350 17 GM POWD.PACK GT SCH (21:21)
[2017-01-20] MEDS: CRANBERRY GT SCH (21:21)
[2017-01-20] MEDS: PROSOURCE / PROSTAT (PYXIS) 30 ML UDC GT SCH (21:22)
[2017-01-20] MEDS: ATORVASTATIN CALCIUM 20MG TABLET GT SCH (21:22)
[2017-01-20] MEDS: MULTIVIT, IRON, MIN NO. 8, FA 1 TAB GT SCH (21:22)
[2017-01-21] MEDS: HYDROCODONE/APAP 10/325MG 1 EA TABLET GT SCH ×2 (09:06→21:22)
[2017-01-21] MEDS: BACLOFEN (10 MG) 10 MG TABLET GT SCH ×4 (09:10→21:02)
[2017-01-21] MEDS: ESCITALOPRAM OXALATE (10 MG) 10 MG TABLET GT SCH (09:10)
[2017-01-21] MEDS: ACIDOPHILUS/BULGARICUS 1 EACH TAB.CHEW GT SCH ×3 (09:10→16:56)
[2017-01-21] MEDS: MINERAL OIL/PETROL OINT 396 GM JAR TP SCH ×3 (09:11→16:57)
[2017-01-21] MEDS: CLOPIDOGREL BISULFATE 75 MG TABLET PO SCH (09:11)
[2017-01-21] MEDS: ASCORBIC ACID 500 MG TABLET GT SCH ×2 (09:11→16:57)
[2017-01-21] MEDS: METOPROLOL TARTRATE 25 MG TABLET GT SCH ×2 (09:11→16:56)
[2017-01-21] MEDS: FAMOTIDINE (20 MG) 20 MG TABLET GT SCH ×2 (09:11→21:03)
[2017-01-21] MEDS: CALCIUM CARBONATE 500 MG TAB.CHEW GT SCH ×3 (09:11→16:57)
[2017-01-21] MEDS: CALCITRIOL 0.25 MCG CAPSULE PO SCH (09:11)
[2017-01-21] MEDS: GABAPENTIN 300 MG CAPSULE GT SCH ×3 (09:11→16:57)
[2017-01-21] MEDS: Z GUARD REMEDY 2 OZ OINT TP SCH ×4 (10:06→21:54)
[2017-01-21] MEDS: VITAMINS A AND D 56.7 GM TUBE TP SCH ×2 (10:06→21:55)
[2017-01-21] MEDS: HYDROGEN PEROXIDE 480 ML BOTTLE TP SCH ×2 (10:06→21:54)
[2017-01-21] MEDS: GENTAMICIN 0.1% OINT 15 GM TUBE TP SCH ×4 (10:06→21:54)
[2017-01-21] MEDS: Z GUARD REMEDY 4 OZ OINT TP SCH ×2 (10:06→21:55)
[2017-01-21] MEDS: HYDROGEL DRESSING 90 GM TUBE TP SCH ×4 (10:06→21:54)
[2017-01-21 12:55] VITALS: BP 117/74
[2017-01-21] MEDS: ENOXAPARIN SODIUM 40 MG/0.4 ML DISP.SYRIN SQ SCH (20:00)
[2017-01-21 20:36] VITALS: BP 120/76
[2017-01-21] MEDS: POLYETHYLENE GLYCOL 3350 17 GM POWD.PACK GT SCH (21:02)
[2017-01-21] MEDS: CRANBERRY GT SCH (21:02)
[2017-01-21] MEDS: PROSOURCE / PROSTAT (PYXIS) 30 ML UDC GT SCH (21:02)
[2017-01-21] MEDS: MULTIVIT, IRON, MIN NO. 8, FA 1 TAB GT SCH (21:02)
[2017-01-21] MEDS: ATORVASTATIN CALCIUM 20MG TABLET GT SCH (21:03)
[2017-01-21] MEDS: MAGNESIUM HYDROXIDE 30 ML UDC GT PRN (21:55)
[2017-01-22] MEDS: OXYCODONE GT PRN (03:37)
[2017-01-22] MEDS: APAP GT PRN (03:37)
[2017-01-22 08:10] VITALS: BP 138/77
[2017-01-22] MEDS: BACLOFEN (10 MG) 10 MG TABLET GT SCH ×4 (08:21→21:11)
[2017-01-22] MEDS: ESCITALOPRAM OXALATE (10 MG) 10 MG TABLET GT SCH (08:21)
[2017-01-22] MEDS: ACIDOPHILUS/BULGARICUS 1 EACH TAB.CHEW GT SCH ×3 (08:21→17:59)
[2017-01-22] MEDS: METOPROLOL TARTRATE 25 MG TABLET GT SCH ×2 (08:22→17:59)
[2017-01-22] MEDS: GABAPENTIN 300 MG CAPSULE GT SCH ×3 (08:22→17:59)
[2017-01-22] MEDS: HYDROCODONE/APAP 10/325MG 1 EA TABLET GT SCH ×2 (08:23→21:11)
[2017-01-22] MEDS: CLOPIDOGREL BISULFATE 75 MG TABLET PO SCH (08:23)
[2017-01-22] MEDS: HYDROGEL DRESSING 90 GM TUBE TP SCH ×4 (08:23→21:12)
[2017-01-22] MEDS: GENTAMICIN 0.1% OINT 15 GM TUBE TP SCH ×4 (08:23→21:12)
[2017-01-22] MEDS: MINERAL OIL/PETROL OINT 396 GM JAR TP SCH ×3 (08:23→17:59)
[2017-01-22] MEDS: FAMOTIDINE (20 MG) 20 MG TABLET GT SCH ×2 (08:23→21:11)
[2017-01-22] MEDS: CALCIUM CARBONATE 500 MG TAB.CHEW GT SCH ×3 (08:23→17:59)
[2017-01-22] MEDS: CALCITRIOL 0.25 MCG CAPSULE PO SCH (08:23)
[2017-01-22] MEDS: ASCORBIC ACID 500 MG TABLET GT SCH ×2 (08:23→17:59)
[2017-01-22] MEDS: VITAMINS A AND D 56.7 GM TUBE TP SCH ×2 (08:24→21:12)
[2017-01-22] MEDS: Z GUARD REMEDY 2 OZ OINT TP SCH ×4 (08:24→21:12)
[2017-01-22] MEDS: HYDROGEN PEROXIDE 480 ML BOTTLE TP SCH ×2 (08:24→21:12)
[2017-01-22] MEDS: Z GUARD REMEDY 4 OZ OINT TP SCH ×2 (08:24→21:12)
[2017-01-22 19:30] VITALS: BP 119/85
[2017-01-22] MEDS: ENOXAPARIN SODIUM 40 MG/0.4 ML DISP.SYRIN SQ SCH (20:00)
[2017-01-22] MEDS: MULTIVIT, IRON, MIN NO. 8, FA 1 TAB GT SCH (21:11)
[2017-01-22] MEDS: PROSOURCE / PROSTAT (PYXIS) 30 ML UDC GT SCH (21:11)
[2017-01-22] MEDS: CRANBERRY GT SCH (21:11)
[2017-01-22] MEDS: POLYETHYLENE GLYCOL 3350 17 GM POWD.PACK GT SCH (21:11)
[2017-01-22] MEDS: ATORVASTATIN CALCIUM 20MG TABLET GT SCH (21:12)
[2017-01-23 07:41] VITALS: BP 132/68
[2017-01-23] MEDS: ESCITALOPRAM OXALATE (10 MG) 10 MG TABLET GT SCH (08:29)
[2017-01-23] MEDS: ACIDOPHILUS/BULGARICUS 1 EACH TAB.CHEW GT SCH ×3 (08:29→17:28)
[2017-01-23] MEDS: BACLOFEN (10 MG) 10 MG TABLET GT SCH ×4 (08:29→20:59)
[2017-01-23] MEDS: CALCITRIOL 0.25 MCG CAPSULE PO SCH (08:30)
[2017-01-23] MEDS: HYDROCODONE/APAP 10/325MG 1 EA TABLET GT SCH ×2 (08:30→21:00)
[2017-01-23] MEDS: GABAPENTIN 300 MG CAPSULE GT SCH ×3 (08:30→17:28)
[2017-01-23] MEDS: CLOPIDOGREL BISULFATE 75 MG TABLET PO SCH (08:30)
[2017-01-23] MEDS: CALCIUM CARBONATE 500 MG TAB.CHEW GT SCH ×3 (08:30→17:28)
[2017-01-23] MEDS: ASCORBIC ACID 500 MG TABLET GT SCH ×2 (08:30→17:28)
[2017-01-23] MEDS: METOPROLOL TARTRATE 25 MG TABLET GT SCH ×2 (08:30→17:28)
[2017-01-23] MEDS: FAMOTIDINE (20 MG) 20 MG TABLET GT SCH ×2 (08:30→21:00)
[2017-01-23] MEDS: Z GUARD REMEDY 4 OZ OINT TP SCH ×2 (09:30→21:00)
[2017-01-23] MEDS: HYDROGEL DRESSING 90 GM TUBE TP SCH ×4 (09:30→21:00)
[2017-01-23] MEDS: HYDROGEN PEROXIDE 480 ML BOTTLE TP SCH ×2 (09:30→21:00)
[2017-01-23] MEDS: VITAMINS A AND D 56.7 GM TUBE TP SCH ×2 (09:30→21:01)
[2017-01-23] MEDS: GENTAMICIN 0.1% OINT 15 GM TUBE TP SCH ×4 (09:30→21:00)
[2017-01-23] MEDS: Z GUARD REMEDY 2 OZ OINT TP SCH ×4 (09:30→21:00)
[2017-01-23] MEDS: MINERAL OIL/PETROL OINT 396 GM JAR TP SCH ×3 (09:30→17:28)
[2017-01-23] MEDS: ALDARA TP SCH (15:17)
[2017-01-23 19:37] VITALS: BP 123/75
[2017-01-23] MEDS: POLYETHYLENE GLYCOL 3350 17 GM POWD.PACK GT SCH (20:59)
[2017-01-23] MEDS: CRANBERRY GT SCH (20:59)
[2017-01-23] MEDS: ENOXAPARIN SODIUM 40 MG/0.4 ML DISP.SYRIN SQ SCH (20:59)
[2017-01-23] MEDS: PROSOURCE / PROSTAT (PYXIS) 30 ML UDC GT SCH (21:00)
[2017-01-23] MEDS: MULTIVIT, IRON, MIN NO. 8, FA 1 TAB GT SCH (21:00)
[2017-01-23] MEDS: ATORVASTATIN CALCIUM 20MG TABLET GT SCH (21:01)
[2017-01-24 08:02] VITALS: BP 112/76
[2017-01-24] MEDS: ACIDOPHILUS/BULGARICUS 1 EACH TAB.CHEW GT SCH ×3 (08:59→17:10)
[2017-01-24] MEDS: ESCITALOPRAM OXALATE (10 MG) 10 MG TABLET GT SCH (08:59)
[2017-01-24] MEDS: BACLOFEN (10 MG) 10 MG TABLET GT SCH ×4 (08:59→21:59)
[2017-01-24] MEDS: GABAPENTIN 300 MG CAPSULE GT SCH ×3 (09:00→17:10)
[2017-01-24] MEDS: CLOPIDOGREL BISULFATE 75 MG TABLET PO SCH (09:00)
[2017-01-24] MEDS: FAMOTIDINE (20 MG) 20 MG TABLET GT SCH ×2 (09:00→21:59)
[2017-01-24] MEDS: METOPROLOL TARTRATE 25 MG TABLET GT SCH ×2 (09:00→17:10)
[2017-01-24] MEDS: MINERAL OIL/PETROL OINT 396 GM JAR TP SCH ×3 (09:00→17:10)
[2017-01-24] MEDS: CALCITRIOL 0.25 MCG CAPSULE PO SCH (09:00)
[2017-01-24] MEDS: HYDROGEL DRESSING 90 GM TUBE TP SCH ×4 (09:00→21:59)
[2017-01-24] MEDS: CALCIUM CARBONATE 500 MG TAB.CHEW GT SCH ×3 (09:00→17:10)
[2017-01-24] MEDS: ASCORBIC ACID 500 MG TABLET GT SCH ×2 (09:00→17:10)
[2017-01-24] MEDS: HYDROCODONE/APAP 10/325MG 1 EA TABLET GT SCH ×2 (09:00→21:00)
[2017-01-24] MEDS: GENTAMICIN 0.1% OINT 15 GM TUBE TP SCH ×3 (09:00→21:59)
[2017-01-24] MEDS: HYDROGEN PEROXIDE 480 ML BOTTLE TP SCH ×2 (09:01→21:00)
[2017-01-24] MEDS: Z GUARD REMEDY 4 OZ OINT TP SCH ×2 (09:01→21:00)
[2017-01-24] MEDS: VITAMINS A AND D 56.7 GM TUBE TP SCH ×2 (09:01→21:00)
[2017-01-24] MEDS: Z GUARD REMEDY 2 OZ OINT TP SCH ×4 (09:01→21:00)
--- NOTE | 2017-01-24 09:45 | NUR ---
Assisted the resident in making a phone call to his brother. Resident was able to speak with the social work faculty member and was in a pleasant mood.
[2017-01-24 19:32] VITALS: BP 116/67
[2017-01-24] MEDS: ENOXAPARIN SODIUM 40 MG/0.4 ML DISP.SYRIN SQ SCH (20:00)
[2017-01-24] MEDS: PROSOURCE / PROSTAT (PYXIS) 30 ML UDC GT SCH (21:59)
[2017-01-24] MEDS: MULTIVIT, IRON, MIN NO. 8, FA 1 TAB GT SCH (21:59)
[2017-01-24] MEDS: CRANBERRY GT SCH (21:59)
[2017-01-24] MEDS: POLYETHYLENE GLYCOL 3350 17 GM POWD.PACK GT SCH (21:59)
[2017-01-24] MEDS: ATORVASTATIN CALCIUM 20MG TABLET GT SCH (22:04)
[2017-01-25 08:00] VITALS: BP 146/96
[2017-01-25] MEDS: ESCITALOPRAM OXALATE (10 MG) 10 MG TABLET GT SCH (09:57)
[2017-01-25] MEDS: ACIDOPHILUS/BULGARICUS 1 EACH TAB.CHEW GT SCH ×3 (09:57→16:17)
[2017-01-25] MEDS: BACLOFEN (10 MG) 10 MG TABLET GT SCH ×4 (09:57→20:59)
[2017-01-25] MEDS: METOPROLOL TARTRATE 25 MG TABLET GT SCH ×2 (09:57→16:17)
[2017-01-25] MEDS: FAMOTIDINE (20 MG) 20 MG TABLET GT SCH ×2 (09:58→21:00)
[2017-01-25] MEDS: HYDROCODONE/APAP 10/325MG 1 EA TABLET GT SCH ×2 (09:58→20:59)
[2017-01-25] MEDS: CLOPIDOGREL BISULFATE 75 MG TABLET PO SCH (09:58)
[2017-01-25] MEDS: MINERAL OIL/PETROL OINT 396 GM JAR TP SCH ×3 (09:58→16:17)
[2017-01-25] MEDS: ASCORBIC ACID 500 MG TABLET GT SCH ×2 (09:58→16:17)
[2017-01-25] MEDS: CALCITRIOL 0.25 MCG CAPSULE PO SCH (09:58)
[2017-01-25] MEDS: GABAPENTIN 300 MG CAPSULE GT SCH ×3 (09:58→16:17)
[2017-01-25] MEDS: CALCIUM CARBONATE 500 MG TAB.CHEW GT SCH ×3 (09:58→16:17)
[2017-01-25] MEDS: GENTAMICIN 0.1% OINT 15 GM TUBE TP SCH ×2 (11:00→21:00)
[2017-01-25] MEDS: Z GUARD REMEDY 4 OZ OINT TP SCH ×2 (11:00→21:00)
[2017-01-25] MEDS: HYDROGEL DRESSING 90 GM TUBE TP SCH ×4 (11:00→21:00)
[2017-01-25] MEDS: Z GUARD REMEDY 2 OZ OINT TP SCH ×4 (11:00→21:00)
[2017-01-25] MEDS: VITAMINS A AND D 56.7 GM TUBE TP SCH ×2 (11:00→21:00)
[2017-01-25] MEDS: HYDROGEN PEROXIDE 480 ML BOTTLE TP SCH ×2 (11:00→21:00)
--- NOTE | 2017-01-25 18:46 | NUR ---
CARLI Ferraro seen resident's wound photo taken today and changed current treatment with Venelex. Resident's wound improving but very slow. Will reevaluate response to new medication.
[2017-01-25 20:10] VITALS: BP 118/72
[2017-01-25] MEDS: CRANBERRY GT SCH (20:59)
[2017-01-25] MEDS: POLYETHYLENE GLYCOL 3350 17 GM POWD.PACK GT SCH (20:59)
[2017-01-25] MEDS: ENOXAPARIN SODIUM 40 MG/0.4 ML DISP.SYRIN SQ SCH (20:59)
[2017-01-25] MEDS: MULTIVIT, IRON, MIN NO. 8, FA 1 TAB GT SCH (21:00)
[2017-01-25] MEDS: ATORVASTATIN CALCIUM 20MG TABLET GT SCH (21:00)
[2017-01-25] MEDS: PROSOURCE / PROSTAT (PYXIS) 30 ML UDC GT SCH (21:00)
[2017-01-26 07:39] VITALS: BP 132/81
[2017-01-26] MEDS: BACLOFEN (10 MG) 10 MG TABLET GT SCH ×4 (08:36→20:36)
[2017-01-26] MEDS: ACIDOPHILUS/BULGARICUS 1 EACH TAB.CHEW GT SCH ×3 (08:36→17:00)
[2017-01-26] MEDS: GABAPENTIN 300 MG CAPSULE GT SCH ×3 (08:36→17:00)
[2017-01-26] MEDS: ESCITALOPRAM OXALATE (10 MG) 10 MG TABLET GT SCH (08:36)
[2017-01-26] MEDS: METOPROLOL TARTRATE 25 MG TABLET GT SCH ×2 (08:36→17:00)
[2017-01-26] MEDS: CLOPIDOGREL BISULFATE 75 MG TABLET PO SCH (08:37)
[2017-01-26] MEDS: CALCIUM CARBONATE 500 MG TAB.CHEW GT SCH ×3 (08:37→17:00)
[2017-01-26] MEDS: ASCORBIC ACID 500 MG TABLET GT SCH ×2 (08:37→17:00)
[2017-01-26] MEDS: HYDROCODONE/APAP 10/325MG 1 EA TABLET GT SCH ×2 (08:37→20:37)
[2017-01-26] MEDS: CALCITRIOL 0.25 MCG CAPSULE PO SCH (08:37)
[2017-01-26] MEDS: FAMOTIDINE (20 MG) 20 MG TABLET GT SCH ×2 (08:37→20:37)
[2017-01-26] MEDS: HYDROGEN PEROXIDE 480 ML BOTTLE TP SCH ×2 (09:00→20:37)
[2017-01-26] MEDS: Z GUARD REMEDY 2 OZ OINT TP SCH ×2 (09:00→20:37)
[2017-01-26] MEDS: VITAMINS A AND D 56.7 GM TUBE TP SCH ×2 (09:00→20:37)
[2017-01-26] MEDS: MINERAL OIL/PETROL OINT 396 GM JAR TP SCH ×3 (09:00→17:00)
[2017-01-26] MEDS: ALDARA TP SCH (15:17)
[2017-01-26 20:08] VITALS: BP_SYST 109; BP_SYST 115; BP_DIAS 50; BP_DIAS 75
[2017-01-26] MEDS: CRANBERRY GT SCH (20:36)
[2017-01-26] MEDS: ENOXAPARIN SODIUM 40 MG/0.4 ML DISP.SYRIN SQ SCH (20:36)
[2017-01-26] MEDS: POLYETHYLENE GLYCOL 3350 17 GM POWD.PACK GT SCH (20:36)
[2017-01-26] MEDS: PROSOURCE / PROSTAT (PYXIS) 30 ML UDC GT SCH (20:37)
[2017-01-26] MEDS: VENELEX OINTMENT TP SCH ×3 (20:37)
[2017-01-26] MEDS: MULTIVIT, IRON, MIN NO. 8, FA 1 TAB GT SCH (20:37)
[2017-01-26] MEDS: Z GUARD REMEDY 4 OZ OINT TP SCH ×2 (20:37)
[2017-01-26] MEDS: MAGNESIUM HYDROXIDE 30 ML UDC GT PRN (20:38)
[2017-01-26] MEDS: ATORVASTATIN CALCIUM 20MG TABLET GT SCH (21:15)
[2017-01-27 07:39] VITALS: BP 133/78
[2017-01-27] MEDS: BACLOFEN (10 MG) 10 MG TABLET GT SCH ×4 (08:48→21:11)
[2017-01-27] MEDS: METOPROLOL TARTRATE 25 MG TABLET GT SCH ×2 (08:48→17:00)
[2017-01-27] MEDS: GABAPENTIN 300 MG CAPSULE GT SCH ×3 (08:48→17:00)
[2017-01-27] MEDS: HYDROCODONE/APAP 5/325MG 1 EACH TABLET GT PRN (08:48)
[2017-01-27] MEDS: ACIDOPHILUS/BULGARICUS 1 EACH TAB.CHEW GT SCH ×3 (08:48→17:00)
[2017-01-27] MEDS: ESCITALOPRAM OXALATE (10 MG) 10 MG TABLET GT SCH (08:48)
[2017-01-27] MEDS: MINERAL OIL/PETROL OINT 396 GM JAR TP SCH ×3 (08:49→17:00)
[2017-01-27] MEDS: FAMOTIDINE (20 MG) 20 MG TABLET GT SCH ×2 (08:49→21:11)
[2017-01-27] MEDS: ASCORBIC ACID 500 MG TABLET GT SCH ×2 (08:49→17:00)
[2017-01-27] MEDS: CALCIUM CARBONATE 500 MG TAB.CHEW GT SCH ×3 (08:49→17:00)
[2017-01-27] MEDS: CLOPIDOGREL BISULFATE 75 MG TABLET PO SCH (08:49)
[2017-01-27] MEDS: CALCITRIOL 0.25 MCG CAPSULE PO SCH (08:49)
[2017-01-27] MEDS: OXYCODONE GT PRN (13:33)
[2017-01-27] MEDS: APAP GT PRN (13:33)
--- NOTE | 2017-01-27 16:36 | NUR ---
Seen and examined by Dr. Walker, NNO given also spoke with Dr. Gonzalez, ENT regarding monthly trach change, he said he may come on Monday01/30/17. Endorsed.
[2017-01-27] MEDS: Z GUARD REMEDY 2 OZ OINT TP SCH ×2 (17:30→21:12)
[2017-01-27] MEDS: VENELEX OINTMENT TP SCH ×6 (17:30→21:12)
[2017-01-27] MEDS: HYDROGEN PEROXIDE 480 ML BOTTLE TP SCH ×2 (17:30→21:11)
[2017-01-27] MEDS: HYDROCODONE/APAP 10/325MG 1 EA TABLET GT SCH ×2 (17:30→21:11)
[2017-01-27] MEDS: VITAMINS A AND D 56.7 GM TUBE TP SCH ×2 (17:30→21:12)
[2017-01-27] MEDS: Z GUARD REMEDY 4 OZ OINT TP SCH ×4 (17:30→21:12)
[2017-01-27] MEDS: ENOXAPARIN SODIUM 40 MG/0.4 ML DISP.SYRIN SQ SCH (20:00)
[2017-01-27 20:08] VITALS: BP 127/74
[2017-01-27] MEDS: PROSOURCE / PROSTAT (PYXIS) 30 ML UDC GT SCH (21:11)
[2017-01-27] MEDS: MULTIVIT, IRON, MIN NO. 8, FA 1 TAB GT SCH (21:11)
[2017-01-27] MEDS: CRANBERRY GT SCH (21:11)
[2017-01-27] MEDS: POLYETHYLENE GLYCOL 3350 17 GM POWD.PACK GT SCH (21:11)
[2017-01-27] MEDS: ATORVASTATIN CALCIUM 20MG TABLET GT SCH (21:12)
[2017-01-27] MEDS: METHOCARBAMOL (750MG) 750 MG TABLET GT PRN (21:12)
[2017-01-28] MEDS: MAGNESIUM HYDROXIDE 30 ML UDC GT PRN ×2 (05:09→18:22)
[2017-01-28 08:13] VITALS: BP 144/85
[2017-01-28] MEDS: ACIDOPHILUS/BULGARICUS 1 EACH TAB.CHEW GT SCH ×3 (09:03→17:18)
[2017-01-28] MEDS: ESCITALOPRAM OXALATE (10 MG) 10 MG TABLET GT SCH (09:03)
[2017-01-28] MEDS: BACLOFEN (10 MG) 10 MG TABLET GT SCH ×4 (09:03→20:25)
[2017-01-28] MEDS: CALCIUM CARBONATE 500 MG TAB.CHEW GT SCH ×3 (09:04→17:19)
[2017-01-28] MEDS: OXYCODONE GT PRN (09:04)
[2017-01-28] MEDS: GABAPENTIN 300 MG CAPSULE GT SCH ×3 (09:04→17:19)
[2017-01-28] MEDS: CALCITRIOL 0.25 MCG CAPSULE PO SCH (09:04)
[2017-01-28] MEDS: APAP GT PRN (09:04)
[2017-01-28] MEDS: FAMOTIDINE (20 MG) 20 MG TABLET GT SCH ×2 (09:04→20:25)
[2017-01-28] MEDS: ASCORBIC ACID 500 MG TABLET GT SCH ×2 (09:04→17:19)
[2017-01-28] MEDS: METOPROLOL TARTRATE 25 MG TABLET GT SCH ×2 (09:04→17:19)
[2017-01-28] MEDS: CLOPIDOGREL BISULFATE 75 MG TABLET PO SCH (09:04)
[2017-01-28] MEDS: MINERAL OIL/PETROL OINT 396 GM JAR TP SCH ×3 (09:04→17:19)
[2017-01-28] MEDS: HYDROCODONE/APAP 10/325MG 1 EA TABLET GT SCH ×2 (14:35→21:00)
[2017-01-28] MEDS: Z GUARD REMEDY 2 OZ OINT TP SCH ×2 (15:00→21:00)
[2017-01-28] MEDS: VENELEX OINTMENT TP SCH ×6 (15:00→21:00)
[2017-01-28] MEDS: Z GUARD REMEDY 4 OZ OINT TP SCH ×4 (15:00→21:00)
[2017-01-28] MEDS: VITAMINS A AND D 56.7 GM TUBE TP SCH ×2 (15:00→21:00)
[2017-01-28] MEDS: HYDROGEN PEROXIDE 480 ML BOTTLE TP SCH ×2 (15:00→20:25)
[2017-01-28 20:09] VITALS: BP 115/67
[2017-01-28] MEDS: ENOXAPARIN SODIUM 40 MG/0.4 ML DISP.SYRIN SQ SCH (20:25)
[2017-01-28] MEDS: POLYETHYLENE GLYCOL 3350 17 GM POWD.PACK GT SCH (20:25)
[2017-01-28] MEDS: PROSOURCE / PROSTAT (PYXIS) 30 ML UDC GT SCH (20:25)
[2017-01-28] MEDS: CRANBERRY GT SCH (20:25)
[2017-01-28] MEDS: MULTIVIT, IRON, MIN NO. 8, FA 1 TAB GT SCH (20:25)
[2017-01-28] MEDS: ATORVASTATIN CALCIUM 20MG TABLET GT SCH (22:00)
[2017-01-29] MEDS: ACETAMINOPHEN 650 MG/20 ML UDC- FOR SA PATIENTS ONLY GT PRN (00:20)
[2017-01-29 08:11] VITALS: BP 120/76
[2017-01-29] MEDS: ACIDOPHILUS/BULGARICUS 1 EACH TAB.CHEW GT SCH ×3 (08:11→16:49)
[2017-01-29] MEDS: BACLOFEN (10 MG) 10 MG TABLET GT SCH ×4 (08:11→20:42)
[2017-01-29] MEDS: ESCITALOPRAM OXALATE (10 MG) 10 MG TABLET GT SCH (08:11)
[2017-01-29] MEDS: HYDROCODONE/APAP 10/325MG 1 EA TABLET GT SCH ×2 (08:12→20:42)
[2017-01-29] MEDS: GABAPENTIN 300 MG CAPSULE GT SCH ×3 (08:12→16:50)
[2017-01-29] MEDS: FAMOTIDINE (20 MG) 20 MG TABLET GT SCH ×2 (08:12→20:43)
[2017-01-29] MEDS: METOPROLOL TARTRATE 25 MG TABLET GT SCH ×2 (08:12→16:50)
[2017-01-29] MEDS: CALCIUM CARBONATE 500 MG TAB.CHEW GT SCH ×3 (08:12→16:50)
[2017-01-29] MEDS: MINERAL OIL/PETROL OINT 396 GM JAR TP SCH ×3 (08:13→16:50)
[2017-01-29] MEDS: ASCORBIC ACID 500 MG TABLET GT SCH ×2 (08:13→16:50)
[2017-01-29] MEDS: CALCITRIOL 0.25 MCG CAPSULE PO SCH (08:13)
[2017-01-29] MEDS: HYDROGEN PEROXIDE 480 ML BOTTLE TP SCH ×2 (08:13→20:43)
[2017-01-29] MEDS: CLOPIDOGREL BISULFATE 75 MG TABLET PO SCH (08:13)
[2017-01-29] MEDS: Z GUARD REMEDY 2 OZ OINT TP SCH ×2 (10:00→20:43)
[2017-01-29] MEDS: VENELEX OINTMENT TP SCH ×6 (10:00→20:43)
[2017-01-29] MEDS: Z GUARD REMEDY 4 OZ OINT TP SCH ×4 (10:00→20:43)
[2017-01-29] MEDS: VITAMINS A AND D 56.7 GM TUBE TP SCH ×2 (10:00→20:43)
[2017-01-29] MEDS: METHOCARBAMOL (750MG) 750 MG TABLET GT PRN (12:32)
[2017-01-29] MEDS: HYDROCODONE/APAP 5/325MG 1 EACH TABLET GT PRN (14:14)
[2017-01-29] MEDS: APAP GT PRN (16:56)
[2017-01-29] MEDS: OXYCODONE GT PRN (16:56)
[2017-01-29 19:35] VITALS: BP 118/69
[2017-01-29] MEDS: ENOXAPARIN SODIUM 40 MG/0.4 ML DISP.SYRIN SQ SCH (20:42)
[2017-01-29] MEDS: POLYETHYLENE GLYCOL 3350 17 GM POWD.PACK GT SCH (20:42)
[2017-01-29] MEDS: CRANBERRY GT SCH (20:42)
[2017-01-29] MEDS: MULTIVIT, IRON, MIN NO. 8, FA 1 TAB GT SCH (20:43)
[2017-01-29] MEDS: PROSOURCE / PROSTAT (PYXIS) 30 ML UDC GT SCH (20:43)
[2017-01-29] MEDS: ATORVASTATIN CALCIUM 20MG TABLET GT SCH (22:33)
[2017-01-30] MEDS: HYDROCODONE/APAP 5/325MG 1 EACH TABLET GT PRN (06:11)
[2017-01-30 08:11] VITALS: BP 127/67
[2017-01-30] MEDS: ACIDOPHILUS/BULGARICUS 1 EACH TAB.CHEW GT SCH ×3 (09:41→17:32)
[2017-01-30] MEDS: ESCITALOPRAM OXALATE (10 MG) 10 MG TABLET GT SCH (09:44)
[2017-01-30] MEDS: BACLOFEN (10 MG) 10 MG TABLET GT SCH ×4 (09:44→21:02)
[2017-01-30] MEDS: FAMOTIDINE (20 MG) 20 MG TABLET GT SCH ×2 (09:45→21:02)
[2017-01-30] MEDS: METOPROLOL TARTRATE 25 MG TABLET GT SCH ×2 (09:45→17:32)
[2017-01-30] MEDS: HYDROCODONE/APAP 10/325MG 1 EA TABLET GT SCH ×2 (09:45→21:02)
[2017-01-30] MEDS: CALCIUM CARBONATE 500 MG TAB.CHEW GT SCH ×3 (09:45→17:32)
[2017-01-30] MEDS: GABAPENTIN 300 MG CAPSULE GT SCH ×3 (09:45→17:32)
[2017-01-30] MEDS: MINERAL OIL/PETROL OINT 396 GM JAR TP SCH ×3 (09:45→17:32)
[2017-01-30] MEDS: CLOPIDOGREL BISULFATE 75 MG TABLET PO SCH (09:45)
[2017-01-30] MEDS: ASCORBIC ACID 500 MG TABLET GT SCH ×2 (09:45→17:32)
[2017-01-30] MEDS: CALCITRIOL 0.25 MCG CAPSULE PO SCH (09:45)
[2017-01-30] MEDS: HYDROGEN PEROXIDE 480 ML BOTTLE TP SCH ×2 (09:45→21:05)
[2017-01-30] MEDS: Z GUARD REMEDY 2 OZ OINT TP SCH ×2 (09:46→21:15)
[2017-01-30] MEDS: VITAMINS A AND D 56.7 GM TUBE TP SCH ×2 (09:46→21:06)
[2017-01-30] MEDS: VENELEX OINTMENT TP SCH ×6 (09:46→21:15)
[2017-01-30] MEDS: Z GUARD REMEDY 4 OZ OINT TP SCH ×4 (09:46→21:06)
--- NOTE | 2017-01-30 10:47 | NUR ---
Pt was saying "help" and quacking repeatedly earlier. Charge nurse came to see pt and asked him how she can help him. Pt just kept saying "help" and "no." Unable to communicate well with pt. IVONNE Micah said he was also unable to communicate with pt since pt was only saying "help" and "no." T 99.1 F BP 126/67 HR 85 R 14 O2 sat 95%. Pt asleep at this time but he opened his eyes when charge nurse touched his hand, then he went back to sleep. Pt Notified Dr. Walker and told him that pt usually gets confused when he has a UTI. Will monitor pt and if he is confused, Dr. Walker said to do UA.
--- NOTE | 2017-01-30 11:18 | NUR ---
SW tried to speak to the resident regarding toothache, as social was informed by charge nurse that resident had stated that his tooth has been hurting. Resident asleep at the time and unable to respond to geriatric social worker's questions. laundromat worker tried waking up the resident, as the dentist is available today, but resident opens his eyes and goes back to sleep. SW will attempt to speak to the patient again. Addendum: 01/30/17 at 1120 by HECTOR RODRIGUES Charge nurse informed and stated that resident seems a bit confused and will inform the geriatric social worker when resident is awake.
--- NOTE | 2017-01-30 12:20 | NUR ---
Dr. Gonzalez did monthly trach tube. Shiley #8 DCT was placed (prepared on the pt's table), pt had a Shiley #[address] Gonzalez's attention that it is a different trach tube. He said examined pt with a laryngoscope and said pt does not have any occlusion and does not really need an XLT. He said to call him if pt has any problems with the DCT. Notified Dr. Ugarte and pt's toenrp-ik-kwv.
--- NOTE | 2017-01-30 14:51 | NUR ---
Social Service section of [facility] (3rd quarter) completed. Resident is alert and was able to answer all questions asked. Resident understands need for placement at this time. Gyqnsb-wo-gpe Vilma remains his contact and she is involved in his care. Resident able to make his needs known.
[2017-01-30] MEDS: ALDARA TP SCH (15:17)
--- NOTE | 2017-01-30 18:40 | NUR ---
Seen by CARLI Hoffman. Pt did not eat dinner and was asleep throughout the day, opens his eyes when touched or spoken to but goes back to sleep. Notified her that pt seemed confused this morning, only says help and no. CARLI Hoffman ordered CBC, BMP, UA. Notified Vilma.
[2017-01-30 20:07] LABS: BASOPHILS # (AUTO) 0.2 /CMM (0.0-0.2); BASOPHILS % (AUTO) 1.2 % (0.0-2.0); CALCIUM, SERUM 9.2 mg/dL (8.5-10.1); CREATININE 0.8 mg/dL (0.6-1.3); EOSINOPHILS % (AUTO) 0.2 % (0.0-6.0); HEMATOCRIT 44 % (39-51); HEMOGLOBIN 13.7 g/dL (13.5-17.5); LYMPHOCYTES # (AUTO) 2.3 /CMM (0.8-4.8); LYMPHOCYTES % (AUTO) 12.2 % (20.0-44.0); MEAN CORPUSCULAR HEMOGLOBIN 28 PG (26.0-33.0); MEAN CORPUSCULAR HGB CONC 31 g/dl (31.0-36.0); MEAN CORPUSCULAR VOLUME 88 fL (80-96); MONOCYTES # (AUTO) 2.2 /CMM (0.1-1.30); NEUTROPHILS # (AUTO) 13.9 /CMM (1.8-8.9); NEUTROPHILS % (AUTO) 74.4 % (43.0-81.0); PLATELET COUNT (AUTO) 187 /CMM (150-450); POTASSIUM 4.5 mmol/L (3.5-5.1); RDW COEFFICIENT OF VARIATION 17.7 (11.5-15.0); RED BLOOD CELL COUNT(AUTO) 4.95 MIL/uL (4.5-6.0); WHITE BLOOD COUNT (AUTO) 18.6 K/uL (4.3-11.0)
[2017-01-30 20:36] VITALS: BP 110/72
[2017-01-30] MEDS: ENOXAPARIN SODIUM 40 MG/0.4 ML DISP.SYRIN SQ SCH (21:01)
[2017-01-30] MEDS: POLYETHYLENE GLYCOL 3350 17 GM POWD.PACK GT SCH (21:03)
[2017-01-30] MEDS: PROSOURCE / PROSTAT (PYXIS) 30 ML UDC GT SCH (21:04)
[2017-01-30] MEDS: MULTIVIT, IRON, MIN NO. 8, FA 1 TAB GT SCH (21:05)
[2017-01-30] MEDS: ATORVASTATIN CALCIUM 20MG TABLET GT SCH (21:10)
[2017-01-30] MEDS: CRANBERRY GT SCH (21:15)
[2017-01-30 23:38] LABS: APPEARANCE,URINE CLOUDY (CLEAR); BILIRUBIN,URINE NEGATIVE (NEGATIVE); BLOOD, URINE 2+ Ery/uL (NEGATIVE); COLOR,URINE YELLOW (YELLOW); KETONES,URINE 1+ (NEGATIVE); LEUKOCYTE ESTERASE ,URINE 3+ (NEGATIVE); NITRITE, URINE POSITIVE (NEGATIVE); PH,URINE 8.5 (5.0-8.0); PROTEIN,URINE TRACE mg/dl (NEGATIVE); UGLUCOSE NEGATIVE (NEGATIVE); UROBILINOGEN,URINE 0.2 EU/dL (0.2)
[2017-01-30 23:42] LABS: BACTERIA,URINE Few /HPF (None Seen); SQUAMOUS EPITHELIAL CELL,UR Few /HPF (None Seen); WBC,URINE TOO NUMEROUS TO COUN /HPF (0-3)
--- NOTE | 2017-01-31 | NUR ---
RN NOTES Relayed WBC 18.6 to Peggy Hoffman. Received new order to start Zosyn 3.375gm and NS @ 70ml/hr x 24hr, noted and carried out.
[2017-01-31] MEDS ORDERED: IV NS 0.9% 1,000 ML BAG IV PRN (00:30)
--- NOTE | 2017-01-31 00:30 | NUR ---
RN NOTES Called specification writer to notify that pt has allergy to penicillins and zosyn falls under its class. Received order to d/c zosyn and start Rocephin 1gm Q24hr x 7days.
[2017-01-31] MEDS ORDERED: CEFTRIAXONE 1 G VIAL IM SCH (01:00)
[2017-01-31 07:59] VITALS: BP 114/75
[2017-01-31] MEDS ORDERED: IV NS 0.9% 1,000 ML IV SCH (08:06)
[2017-01-31] MEDS: ACIDOPHILUS/BULGARICUS 1 EACH TAB.CHEW GT SCH ×3 (08:17→17:44)
[2017-01-31] MEDS: BACLOFEN (10 MG) 10 MG TABLET GT SCH ×4 (08:17→20:41)
[2017-01-31] MEDS: ESCITALOPRAM OXALATE (10 MG) 10 MG TABLET GT SCH (08:17)
[2017-01-31] MEDS: GABAPENTIN 300 MG CAPSULE GT SCH ×3 (08:18→17:44)
[2017-01-31] MEDS: HYDROGEN PEROXIDE 480 ML BOTTLE TP SCH ×2 (08:18→20:42)
[2017-01-31] MEDS: CALCITRIOL 0.25 MCG CAPSULE PO SCH (08:18)
[2017-01-31] MEDS: CLOPIDOGREL BISULFATE 75 MG TABLET PO SCH (08:18)
[2017-01-31] MEDS: VENELEX OINTMENT TP SCH ×6 (08:18→21:15)
[2017-01-31] MEDS: METOPROLOL TARTRATE 25 MG TABLET GT SCH ×2 (08:18→17:44)
[2017-01-31] MEDS: HYDROCODONE/APAP 10/325MG 1 EA TABLET GT SCH ×2 (08:18→20:42)
[2017-01-31] MEDS: FAMOTIDINE (20 MG) 20 MG TABLET GT SCH ×2 (08:18→20:42)
[2017-01-31] MEDS: CALCIUM CARBONATE 500 MG TAB.CHEW GT SCH ×3 (08:18→17:44)
[2017-01-31] MEDS: ASCORBIC ACID 500 MG TABLET GT SCH ×2 (08:18→17:44)
[2017-01-31] MEDS: MINERAL OIL/PETROL OINT 396 GM JAR TP SCH ×3 (08:18→17:44)
[2017-01-31] MEDS: Z GUARD REMEDY 4 OZ OINT TP SCH ×4 (08:19→21:16)
[2017-01-31] MEDS: VITAMINS A AND D 56.7 GM TUBE TP SCH ×2 (08:19→21:16)
[2017-01-31] MEDS: Z GUARD REMEDY 2 OZ OINT TP SCH ×2 (08:19→21:15)
--- NOTE | 2017-01-31 10:00 | NUR ---
Seen by Dr. Ugarte. Pt verbalized to Dr. Ugarte that he is fine. Relayed lab results and CXR to Dr. Ugarte. Notified him of antibiotic and IV hydration orders. No new order.
--- NOTE | 2017-01-31 11:50 | NUR ---
marshmallow machine worker met with the patient and asked him if his tooth has been hurting. Resident appeared more alert and oriented as compared to yesterday. He stated that his tooth is not hurting and social work msw stated that she can check in with him again to see if anything changes. Resident used his tongue to feel around his mouth. Resident appreciated social work msw coming to speak to him but appeared sleepy. Charge nurse was informed that the resident stated his tooth is not hurting.
--- NOTE | 2017-01-31 18:07 | NUR ---
Called pt's yunkfl-je-fsx Vilma Marley. Notified her of antibiotic therapy and IV hydration.
[2017-01-31 19:36] VITALS: BP 120/73
[2017-01-31] MEDS: ENOXAPARIN SODIUM 40 MG/0.4 ML DISP.SYRIN SQ SCH (20:41)
[2017-01-31] MEDS: CRANBERRY GT SCH (20:41)
[2017-01-31] MEDS: POLYETHYLENE GLYCOL 3350 17 GM POWD.PACK GT SCH (20:41)
[2017-01-31] MEDS: MULTIVIT, IRON, MIN NO. 8, FA 1 TAB GT SCH (20:42)
[2017-01-31] MEDS: PROSOURCE / PROSTAT (PYXIS) 30 ML UDC GT SCH (20:42)
[2017-01-31] MEDS: ATORVASTATIN CALCIUM 20MG TABLET GT SCH (21:16)
[2017-02-01] MEDS: CEFTRIAXONE 1 G in IV D5W 50 ML IV SCH (00:47)
[2017-02-01 07:53] VITALS: BP 120/80
[2017-02-01] MEDS: VENELEX OINTMENT TP SCH ×6 (09:00→21:07)
[2017-02-01] MEDS: BACLOFEN (10 MG) 10 MG TABLET GT SCH ×4 (09:51→20:27)
[2017-02-01] MEDS: ESCITALOPRAM OXALATE (10 MG) 10 MG TABLET GT SCH (09:51)
[2017-02-01] MEDS: ACIDOPHILUS/BULGARICUS 1 EACH TAB.CHEW GT SCH ×3 (09:51→17:19)
[2017-02-01] MEDS: HYDROCODONE/APAP 10/325MG 1 EA TABLET GT SCH ×2 (09:52→20:28)
[2017-02-01] MEDS: METOPROLOL TARTRATE 25 MG TABLET GT SCH ×2 (09:52→17:20)
[2017-02-01] MEDS: FAMOTIDINE (20 MG) 20 MG TABLET GT SCH ×2 (09:52→20:28)
[2017-02-01] MEDS: GABAPENTIN 300 MG CAPSULE GT SCH ×3 (09:52→17:20)
[2017-02-01] MEDS: ASCORBIC ACID 500 MG TABLET GT SCH ×2 (09:53→17:20)
[2017-02-01] MEDS: CALCITRIOL 0.25 MCG CAPSULE PO SCH (09:53)
[2017-02-01] MEDS: CLOPIDOGREL BISULFATE 75 MG TABLET PO SCH (09:53)
[2017-02-01] MEDS: CALCIUM CARBONATE 500 MG TAB.CHEW GT SCH ×3 (09:53→17:20)
[2017-02-01] MEDS: MINERAL OIL/PETROL OINT 396 GM JAR TP SCH ×3 (09:53→17:21)
[2017-02-01] MEDS: VITAMINS A AND D 56.7 GM TUBE TP SCH ×2 (10:00→21:08)
[2017-02-01] MEDS: Z GUARD REMEDY 4 OZ OINT TP SCH ×4 (10:00→21:08)
[2017-02-01] MEDS: HYDROGEN PEROXIDE 480 ML BOTTLE TP SCH ×2 (10:00→21:07)
[2017-02-01] MEDS: Z GUARD REMEDY 2 OZ OINT TP SCH ×2 (10:00→21:07)
--- NOTE | 2017-02-01 10:08 | NUR ---
Notified by lebznd-me-ikn Vilma that she will be visiting the resident today and will be bringing him lunch. Resident informed. Resident also stating that his lower bottom tooth is hurting and sw informed him that she will schedule for the dentist to come and see him. RAVI sent referral to the office of Dr. Lopes (tel: [phone]; fax: [phone]). RAVI will follow up. Addendum: 02/01/17 at 1053 by HECTOR NUNO SW Received a call from Mystery from the office of Dr. Lopes. She stated Dr. Lopes can come toady between 12:15-12:30PM. Notified uwmqcf-oo-ntf Vilma. She will be visiting the resident and will be bringing him food. Informed owqeif-bl-xhj if she can feed him after the dentist visits and he will need to look inside the resident's mouth. Informed charge nurse.
--- NOTE | 2017-02-01 10:52 | NUR ---
RN NOtes Patient complaint of toothache. RAVI Jansen aware. She said dentist will be here today.
--- NOTE | 2017-02-01 12:30 | NUR ---
Seen by Dentist Dr. Lopes, He gave an order for Periwash. Wants to brush this teeth, Flush and and flush with Peridex
--- NOTE | 2017-02-01 12:59 | NUR ---
Dr. Lopes DDS came to see the resident. Vkadjy-eu-qnb Vilma was present. Resident complained of lower tooth pain and Dr. Lopes was able to examine the resident's tooth. He stated that the resident is complaining of a dull ache to the lower left side and reported that this is because the resident has a tooth with an incomplete crown on it and there is a gap next to that tooth where food is able to get stuck. He wrote an order for the staff to brush the area, floss, and place peridex after meals (breakfast and dinner). Dr. Lopes stated that resident grinds his teeth and explained this to zdbvew-ng-ghk. Dr. Lopes stated that resident can wear a mouth guard but that this has to be approved by the doctor. Vilma presented issue of it being a choking hazard and would rather not try this right now. She want to see if the peridex will work and lessen the resident's tooth pain. Dr. Lopes informed that resident's current pain killers should mask the pain that resident feels. Vilma also asked if crown needed to be completed to which he stated that it will probably not make much of a difference since this tooth shifts forward and back due to there being no surrounding tooth. Charge nurse was informed of this visit and Dr. Lopes's orders.
--- NOTE | 2017-02-01 14:46 | NUR ---
Liovrp-in-ntz Vilma reminded the SW that she will be out of the country from February 03, 2017 to March 01, 2017. She stated she might not be available to answer right away but that the unit may still call her. She provided a secondary contact of Janiya (the resident's sister that resides in [facility]) with a phone number of [phone]. She stated that we may call her if she does not answer. Addendum: 02/01/17 at 1448 by HECTOR RODRIGUES charge nurse informed and a notice was placed in the resident's chart.
[2017-02-01] MEDS: CHLORHEXIDINE GLUCONATE 15 ML UDC MM SCH (17:00)
[2017-02-01 20:21] VITALS: BP 121/63
[2017-02-01] MEDS: CRANBERRY GT SCH (20:27)
[2017-02-01] MEDS: POLYETHYLENE GLYCOL 3350 17 GM POWD.PACK GT SCH (20:27)
[2017-02-01] MEDS: ENOXAPARIN SODIUM 40 MG/0.4 ML DISP.SYRIN SQ SCH (20:27)
[2017-02-01] MEDS: MULTIVIT, IRON, MIN NO. 8, FA 1 TAB GT SCH (20:28)
[2017-02-01] MEDS: PROSOURCE / PROSTAT (PYXIS) 30 ML UDC GT SCH (20:28)
[2017-02-01] MEDS: ATORVASTATIN CALCIUM 20MG TABLET GT SCH (21:08)
[2017-02-02] MEDS: CEFTRIAXONE 1 G in IV D5W 50 ML IV SCH (01:00)
[2017-02-02] MEDS: CHLORHEXIDINE GLUCONATE 15 ML UDC MM SCH ×2 (06:12→16:28)
[2017-02-02 08:00] VITALS: BP 144/85
[2017-02-02] MEDS: ACIDOPHILUS/BULGARICUS 1 EACH TAB.CHEW GT SCH ×3 (09:36→16:28)
[2017-02-02] MEDS: METOPROLOL TARTRATE 25 MG TABLET GT SCH ×2 (09:36→16:28)
[2017-02-02] MEDS: GABAPENTIN 300 MG CAPSULE GT SCH ×3 (09:36→16:28)
[2017-02-02] MEDS: FAMOTIDINE (20 MG) 20 MG TABLET GT SCH ×2 (09:36→20:30)
[2017-02-02] MEDS: BACLOFEN (10 MG) 10 MG TABLET GT SCH ×4 (09:36→20:30)
[2017-02-02] MEDS: ESCITALOPRAM OXALATE (10 MG) 10 MG TABLET GT SCH (09:36)
[2017-02-02] MEDS: CLOPIDOGREL BISULFATE 75 MG TABLET PO SCH (09:37)
[2017-02-02] MEDS: ASCORBIC ACID 500 MG TABLET GT SCH ×2 (09:37→16:28)
[2017-02-02] MEDS: CALCIUM CARBONATE 500 MG TAB.CHEW GT SCH ×3 (09:37→16:28)
[2017-02-02] MEDS: HYDROCODONE/APAP 10/325MG 1 EA TABLET GT SCH ×2 (09:37→20:30)
[2017-02-02] MEDS: CALCITRIOL 0.25 MCG CAPSULE PO SCH (09:37)
[2017-02-02] MEDS: MINERAL OIL/PETROL OINT 396 GM JAR TP SCH ×3 (09:37→16:28)
[2017-02-02] MEDS: VITAMINS A AND D 56.7 GM TUBE TP SCH ×2 (11:00→20:31)
[2017-02-02] MEDS: HYDROGEN PEROXIDE 480 ML BOTTLE TP SCH ×2 (11:00→20:30)
[2017-02-02] MEDS: Z GUARD REMEDY 4 OZ OINT TP SCH ×4 (11:00→20:31)
[2017-02-02] MEDS: Z GUARD REMEDY 2 OZ OINT TP SCH ×2 (11:00→20:31)
[2017-02-02] MEDS: VENELEX OINTMENT TP SCH ×6 (11:00→20:30)
--- NOTE | 2017-02-02 14:35 | NUR ---
Seen by EXTERIOR WORK HELPER Peggy Hoffman. Relayed urine culture result to her. Urine culture showed Klebsiella oxytoca, sensitive to Ceftriaxone. Pt currently on Ceftriaxone IV. No new order.
[2017-02-02] MEDS: ALDARA TP SCH (15:17)
--- NOTE | 2017-02-02 16:00 | NUR ---
Seen by CARLI Ferraro. Pt refused wound debridement. CARLI Mitchell said she will come back another day.
[2017-02-02] MEDS: HYDROCODONE/APAP 5/325MG 1 EACH TABLET GT PRN (16:27)
[2017-02-02 20:09] VITALS: BP 109/68
[2017-02-02] MEDS: CRANBERRY GT SCH (20:30)
[2017-02-02] MEDS: ENOXAPARIN SODIUM 40 MG/0.4 ML DISP.SYRIN SQ SCH (20:30)
[2017-02-02] MEDS: POLYETHYLENE GLYCOL 3350 17 GM POWD.PACK GT SCH (20:30)
[2017-02-02] MEDS: PROSOURCE / PROSTAT (PYXIS) 30 ML UDC GT SCH (20:30)
[2017-02-02] MEDS: MULTIVIT, IRON, MIN NO. 8, FA 1 TAB GT SCH (20:30)
[2017-02-02] MEDS: MAGNESIUM HYDROXIDE 30 ML UDC GT PRN (20:31)
[2017-02-02] MEDS: ATORVASTATIN CALCIUM 20MG TABLET GT SCH (21:15)
[2017-02-03] MEDS: HYDROCODONE/APAP 5/325MG 1 EACH TABLET GT PRN ×2 (00:37→14:56)
[2017-02-03] MEDS: CEFTRIAXONE 1 G in IV D5W 50 ML IV SCH (01:10)
[2017-02-03] MEDS: CHLORHEXIDINE GLUCONATE 15 ML UDC MM SCH ×2 (07:00→17:04)
[2017-02-03 07:39] VITALS: BP 121/76
[2017-02-03] MEDS: HYDROGEN PEROXIDE 480 ML BOTTLE TP SCH ×2 (09:00→20:36)
[2017-02-03] MEDS: ACIDOPHILUS/BULGARICUS 1 EACH TAB.CHEW GT SCH ×3 (09:30→17:04)
[2017-02-03] MEDS: CALCIUM CARBONATE 500 MG TAB.CHEW GT SCH ×3 (09:30→17:04)
[2017-02-03] MEDS: BACLOFEN (10 MG) 10 MG TABLET GT SCH ×4 (09:30→20:35)
[2017-02-03] MEDS: METOPROLOL TARTRATE 25 MG TABLET GT SCH ×2 (09:30→17:08)
[2017-02-03] MEDS: CALCITRIOL 0.25 MCG CAPSULE PO SCH (09:30)
[2017-02-03] MEDS: MINERAL OIL/PETROL OINT 396 GM JAR TP SCH ×3 (09:30→17:04)
[2017-02-03] MEDS: FAMOTIDINE (20 MG) 20 MG TABLET GT SCH ×2 (09:30→20:36)
[2017-02-03] MEDS: HYDROCODONE/APAP 10/325MG 1 EA TABLET GT SCH ×2 (09:30→20:36)
[2017-02-03] MEDS: ASCORBIC ACID 500 MG TABLET GT SCH ×2 (09:30→17:04)
[2017-02-03] MEDS: GABAPENTIN 300 MG CAPSULE GT SCH ×3 (09:30→17:04)
[2017-02-03] MEDS: ESCITALOPRAM OXALATE (10 MG) 10 MG TABLET GT SCH (09:30)
[2017-02-03] MEDS: CLOPIDOGREL BISULFATE 75 MG TABLET PO SCH (09:30)
[2017-02-03] MEDS: Z GUARD REMEDY 4 OZ OINT TP SCH ×4 (10:00→20:37)
[2017-02-03] MEDS: VENELEX OINTMENT TP SCH ×6 (10:00→20:37)
[2017-02-03] MEDS: Z GUARD REMEDY 2 OZ OINT TP SCH ×2 (10:00→20:37)
[2017-02-03] MEDS: VITAMINS A AND D 56.7 GM TUBE TP SCH ×2 (10:00→20:37)
[2017-02-03 20:09] VITALS: BP 101/53
[2017-02-03] MEDS: ENOXAPARIN SODIUM 40 MG/0.4 ML DISP.SYRIN SQ SCH (20:35)
[2017-02-03] MEDS: CRANBERRY GT SCH (20:35)
[2017-02-03] MEDS: POLYETHYLENE GLYCOL 3350 17 GM POWD.PACK GT SCH (20:35)
[2017-02-03] MEDS: PROSOURCE / PROSTAT (PYXIS) 30 ML UDC GT SCH (20:36)
[2017-02-03] MEDS: MULTIVIT, IRON, MIN NO. 8, FA 1 TAB GT SCH (20:36)
[2017-02-03] MEDS: ATORVASTATIN CALCIUM 20MG TABLET GT SCH (21:25)
[2017-02-04] MEDS: CEFTRIAXONE 1 G in IV D5W 50 ML IV SCH (01:02)
[2017-02-04] MEDS: CHLORHEXIDINE GLUCONATE 15 ML UDC MM SCH ×2 (07:00→17:00)
[2017-02-04 07:32] VITALS: BP 110/76
[2017-02-04] MEDS: BACLOFEN (10 MG) 10 MG TABLET GT SCH ×4 (09:03→20:17)
[2017-02-04] MEDS: GABAPENTIN 300 MG CAPSULE GT SCH ×3 (09:03→17:00)
[2017-02-04] MEDS: ACIDOPHILUS/BULGARICUS 1 EACH TAB.CHEW GT SCH ×3 (09:03→17:00)
[2017-02-04] MEDS: METOPROLOL TARTRATE 25 MG TABLET GT SCH ×2 (09:03→17:00)
[2017-02-04] MEDS: ESCITALOPRAM OXALATE (10 MG) 10 MG TABLET GT SCH (09:03)
[2017-02-04] MEDS: MINERAL OIL/PETROL OINT 396 GM JAR TP SCH ×3 (09:04→17:00)
[2017-02-04] MEDS: CALCIUM CARBONATE 500 MG TAB.CHEW GT SCH ×3 (09:04→17:00)
[2017-02-04] MEDS: HYDROCODONE/APAP 10/325MG 1 EA TABLET GT SCH ×2 (09:04→20:18)
[2017-02-04] MEDS: FAMOTIDINE (20 MG) 20 MG TABLET GT SCH ×2 (09:04→20:18)
[2017-02-04] MEDS: CALCITRIOL 0.25 MCG CAPSULE PO SCH (09:04)
[2017-02-04] MEDS: CLOPIDOGREL BISULFATE 75 MG TABLET PO SCH (09:04)
[2017-02-04] MEDS: ASCORBIC ACID 500 MG TABLET GT SCH ×2 (09:04→17:00)
[2017-02-04] MEDS: Z GUARD REMEDY 4 OZ OINT TP SCH ×4 (10:10→20:18)
[2017-02-04] MEDS: VITAMINS A AND D 56.7 GM TUBE TP SCH ×2 (10:10→20:18)
[2017-02-04] MEDS: Z GUARD REMEDY 2 OZ OINT TP SCH ×2 (10:10→20:18)
[2017-02-04] MEDS: VENELEX OINTMENT TP SCH ×6 (10:10→20:18)
[2017-02-04] MEDS: HYDROGEN PEROXIDE 480 ML BOTTLE TP SCH ×2 (10:10→20:18)
[2017-02-04] MEDS: OXYCODONE GT PRN (11:47)
[2017-02-04] MEDS: APAP GT PRN (11:47)
[2017-02-04 20:09] VITALS: BP 107/66
[2017-02-04] MEDS: ENOXAPARIN SODIUM 40 MG/0.4 ML DISP.SYRIN SQ SCH (20:17)
[2017-02-04] MEDS: POLYETHYLENE GLYCOL 3350 17 GM POWD.PACK GT SCH (20:17)
[2017-02-04] MEDS: CRANBERRY GT SCH (20:17)
[2017-02-04] MEDS: MULTIVIT, IRON, MIN NO. 8, FA 1 TAB GT SCH (20:18)
[2017-02-04] MEDS: PROSOURCE / PROSTAT (PYXIS) 30 ML UDC GT SCH (20:18)
[2017-02-04] MEDS: MAGNESIUM HYDROXIDE 30 ML UDC GT PRN (20:19)
[2017-02-04] MEDS: ATORVASTATIN CALCIUM 20MG TABLET GT SCH (21:02)
[2017-02-05] MEDS: CEFTRIAXONE 1 G in IV D5W 50 ML IV SCH (01:00)
[2017-02-05] MEDS: METHOCARBAMOL (750MG) 750 MG TABLET GT PRN (05:21)
[2017-02-05] MEDS: CHLORHEXIDINE GLUCONATE 15 ML UDC MM SCH ×2 (07:00→16:29)
[2017-02-05 07:37] VITALS: BP 126/62
[2017-02-05] MEDS: CLOPIDOGREL BISULFATE 75 MG TABLET PO SCH (08:44)
[2017-02-05] MEDS: CALCIUM CARBONATE 500 MG TAB.CHEW GT SCH ×3 (08:44→16:29)
[2017-02-05] MEDS: BACLOFEN (10 MG) 10 MG TABLET GT SCH ×4 (08:44→20:37)
[2017-02-05] MEDS: FAMOTIDINE (20 MG) 20 MG TABLET GT SCH ×2 (08:44→20:37)
[2017-02-05] MEDS: ACIDOPHILUS/BULGARICUS 1 EACH TAB.CHEW GT SCH ×3 (08:44→16:28)
[2017-02-05] MEDS: CALCITRIOL 0.25 MCG CAPSULE PO SCH (08:44)
[2017-02-05] MEDS: HYDROCODONE/APAP 10/325MG 1 EA TABLET GT SCH ×2 (08:44→20:37)
[2017-02-05] MEDS: ASCORBIC ACID 500 MG TABLET GT SCH ×2 (08:44→16:29)
[2017-02-05] MEDS: METOPROLOL TARTRATE 25 MG TABLET GT SCH ×2 (08:44→16:29)
[2017-02-05] MEDS: GABAPENTIN 300 MG CAPSULE GT SCH ×3 (08:44→16:29)
[2017-02-05] MEDS: ESCITALOPRAM OXALATE (10 MG) 10 MG TABLET GT SCH (08:44)
[2017-02-05] MEDS: MINERAL OIL/PETROL OINT 396 GM JAR TP SCH ×3 (08:46→16:29)
[2017-02-05] MEDS: HYDROGEN PEROXIDE 480 ML BOTTLE TP SCH ×2 (09:00→21:13)
[2017-02-05] MEDS: Z GUARD REMEDY 4 OZ OINT TP SCH ×4 (12:00→21:14)
[2017-02-05] MEDS: VITAMINS A AND D 56.7 GM TUBE TP SCH ×2 (12:00→21:14)
[2017-02-05] MEDS: Z GUARD REMEDY 2 OZ OINT TP SCH ×2 (12:00→21:13)
[2017-02-05] MEDS: VENELEX OINTMENT TP SCH ×6 (12:00→21:13)
[2017-02-05] MEDS: HYDROCODONE/APAP 5/325MG 1 EACH TABLET GT PRN (14:09)
[2017-02-05] MEDS: ENOXAPARIN SODIUM 40 MG/0.4 ML DISP.SYRIN SQ SCH (20:36)
[2017-02-05] MEDS: CRANBERRY GT SCH (20:36)
[2017-02-05] MEDS: MULTIVIT, IRON, MIN NO. 8, FA 1 TAB GT SCH (20:37)
[2017-02-05] MEDS: POLYETHYLENE GLYCOL 3350 17 GM POWD.PACK GT SCH (20:37)
[2017-02-05] MEDS: PROSOURCE / PROSTAT (PYXIS) 30 ML UDC GT SCH (20:37)
[2017-02-05 21:00] VITALS: BP 105/58
[2017-02-05] MEDS: ATORVASTATIN CALCIUM 20MG TABLET GT SCH (21:14)
[2017-02-06] MEDS: CEFTRIAXONE 1 G in IV D5W 50 ML IV SCH ×2
[2017-02-06] MEDS: CHLORHEXIDINE GLUCONATE 15 ML UDC MM SCH ×2 (06:01→17:20)
[2017-02-06 08:18] VITALS: BP 120/69
[2017-02-06] MEDS: ACIDOPHILUS/BULGARICUS 1 EACH TAB.CHEW GT SCH ×3 (09:23→17:20)
[2017-02-06] MEDS: ESCITALOPRAM OXALATE (10 MG) 10 MG TABLET GT SCH (09:23)
[2017-02-06] MEDS: BACLOFEN (10 MG) 10 MG TABLET GT SCH ×4 (09:23→20:35)
[2017-02-06] MEDS: FAMOTIDINE (20 MG) 20 MG TABLET GT SCH ×2 (09:24→20:35)
[2017-02-06] MEDS: ASCORBIC ACID 500 MG TABLET GT SCH ×2 (09:24→17:20)
[2017-02-06] MEDS: CALCIUM CARBONATE 500 MG TAB.CHEW GT SCH ×3 (09:24→17:20)
[2017-02-06] MEDS: GABAPENTIN 300 MG CAPSULE GT SCH ×3 (09:24→17:20)
[2017-02-06] MEDS: CALCITRIOL 0.25 MCG CAPSULE PO SCH (09:24)
[2017-02-06] MEDS: VENELEX OINTMENT TP SCH ×6 (09:24→21:15)
[2017-02-06] MEDS: HYDROCODONE/APAP 10/325MG 1 EA TABLET GT SCH ×2 (09:24→20:35)
[2017-02-06] MEDS: HYDROGEN PEROXIDE 480 ML BOTTLE TP SCH ×2 (09:24→21:15)
[2017-02-06] MEDS: MINERAL OIL/PETROL OINT 396 GM JAR TP SCH ×3 (09:24→17:20)
[2017-02-06] MEDS: CLOPIDOGREL BISULFATE 75 MG TABLET PO SCH (09:24)
[2017-02-06] MEDS: METOPROLOL TARTRATE 25 MG TABLET GT SCH ×2 (09:24→17:20)
[2017-02-06] MEDS: Z GUARD REMEDY 4 OZ OINT TP SCH ×4 (09:25→21:15)
[2017-02-06] MEDS: Z GUARD REMEDY 2 OZ OINT TP SCH ×2 (09:25→21:15)
[2017-02-06] MEDS: VITAMINS A AND D 56.7 GM TUBE TP SCH ×2 (09:25→21:16)
[2017-02-06 10:49] LABS: BASOPHILS # (AUTO) 0.1 /CMM (0.0-0.2); BASOPHILS % (AUTO) 0.7 % (0.0-2.0); EOSINOPHILS # (AUTO) 0.3 /CMM (0.0-0.7); EOSINOPHILS % (AUTO) 3.5 % (0.0-6.0); HEMATOCRIT 39 % (39-51); HEMOGLOBIN 12.1 g/dL (13.5-17.5); LYMPHOCYTES # (AUTO) 1.4 /CMM (0.8-4.8); MEAN CORPUSCULAR HEMOGLOBIN 27 PG (26.0-33.0); MEAN CORPUSCULAR HGB CONC 31 g/dl (31.0-36.0); MEAN CORPUSCULAR VOLUME 88 fL (80-96); MONOCYTES # (AUTO) 0.8 /CMM (0.1-1.30); MONOCYTES % (AUTO) 9.4 % (2.0-12.0); NEUTROPHILS % (AUTO) 70.4 % (43.0-81.0); PLATELET COUNT (AUTO) 370 /CMM (150-450); RDW COEFFICIENT OF VARIATION 18.6 (11.5-15.0); RED BLOOD CELL COUNT(AUTO) 4.41 MIL/uL (4.5-6.0); WHITE BLOOD COUNT (AUTO) 8.5 K/uL (4.3-11.0)
[2017-02-06 11:06] LABS: CALCIUM, SERUM 9.1 mg/dL (8.5-10.1); CREATININE 0.8 mg/dL (0.6-1.3); POTASSIUM 4.2 mmol/L (3.5-5.1)
[2017-02-06] MEDS: ALDARA TP SCH (15:17)
--- NOTE | 2017-02-06 19:22 | NUR ---
Seen by CARLI Hoffman. Relayed lab results to her. No new order.
[2017-02-06] MEDS: ENOXAPARIN SODIUM 40 MG/0.4 ML DISP.SYRIN SQ SCH (20:34)
[2017-02-06] MEDS: MULTIVIT, IRON, MIN NO. 8, FA 1 TAB GT SCH (20:35)
[2017-02-06] MEDS: PROSOURCE / PROSTAT (PYXIS) 30 ML UDC GT SCH (20:35)
[2017-02-06] MEDS: POLYETHYLENE GLYCOL 3350 17 GM POWD.PACK GT SCH (20:35)
[2017-02-06] MEDS: CRANBERRY GT SCH (20:35)
[2017-02-06] MEDS: ATORVASTATIN CALCIUM 20MG TABLET GT SCH (21:16)
[2017-02-07] MEDS: CHLORHEXIDINE GLUCONATE 15 ML UDC MM SCH ×2 (06:37→17:39)
[2017-02-07 07:49] VITALS: BP 103/63
[2017-02-07] MEDS: ESCITALOPRAM OXALATE (10 MG) 10 MG TABLET GT SCH (09:17)
[2017-02-07] MEDS: ACIDOPHILUS/BULGARICUS 1 EACH TAB.CHEW GT SCH ×3 (09:17→17:38)
[2017-02-07] MEDS: BACLOFEN (10 MG) 10 MG TABLET GT SCH ×4 (09:17→20:34)
[2017-02-07] MEDS: MINERAL OIL/PETROL OINT 396 GM JAR TP SCH ×3 (09:18→17:39)
[2017-02-07] MEDS: GABAPENTIN 300 MG CAPSULE GT SCH ×3 (09:18→17:39)
[2017-02-07] MEDS: CALCITRIOL 0.25 MCG CAPSULE PO SCH (09:18)
[2017-02-07] MEDS: FAMOTIDINE (20 MG) 20 MG TABLET GT SCH ×2 (09:18→20:34)
[2017-02-07] MEDS: ASCORBIC ACID 500 MG TABLET GT SCH ×2 (09:18→17:39)
[2017-02-07] MEDS: METOPROLOL TARTRATE 25 MG TABLET GT SCH ×2 (09:18→17:39)
[2017-02-07] MEDS: HYDROGEN PEROXIDE 480 ML BOTTLE TP SCH ×2 (09:18→20:35)
[2017-02-07] MEDS: CALCIUM CARBONATE 500 MG TAB.CHEW GT SCH ×3 (09:18→17:39)
[2017-02-07] MEDS: HYDROCODONE/APAP 10/325MG 1 EA TABLET GT SCH ×2 (09:18→20:34)
[2017-02-07] MEDS: CLOPIDOGREL BISULFATE 75 MG TABLET PO SCH (09:18)
[2017-02-07] MEDS: Z GUARD REMEDY 4 OZ OINT TP SCH ×4 (09:19→21:11)
[2017-02-07] MEDS: Z GUARD REMEDY 2 OZ OINT TP SCH ×2 (09:19→21:10)
[2017-02-07] MEDS: VITAMINS A AND D 56.7 GM TUBE TP SCH ×2 (09:19→21:11)
[2017-02-07] MEDS: VENELEX OINTMENT TP SCH ×6 (09:19→21:10)
[2017-02-07] MEDS: ENOXAPARIN SODIUM 40 MG/0.4 ML DISP.SYRIN SQ SCH (20:34)
[2017-02-07] MEDS: CRANBERRY GT SCH (20:34)
[2017-02-07] MEDS: POLYETHYLENE GLYCOL 3350 17 GM POWD.PACK GT SCH (20:34)
[2017-02-07] MEDS: PROSOURCE / PROSTAT (PYXIS) 30 ML UDC GT SCH (20:34)
[2017-02-07] MEDS: MULTIVIT, IRON, MIN NO. 8, FA 1 TAB GT SCH (20:34)
[2017-02-07] MEDS: ATORVASTATIN CALCIUM 20MG TABLET GT SCH (21:11)
[2017-02-08] MEDS: CHLORHEXIDINE GLUCONATE 15 ML UDC MM SCH ×2 (06:02→17:03)
[2017-02-08 08:10] VITALS: BP 115/62
[2017-02-08] MEDS: ESCITALOPRAM OXALATE (10 MG) 10 MG TABLET GT SCH (08:48)
[2017-02-08] MEDS: GABAPENTIN 300 MG CAPSULE GT SCH ×3 (08:48→17:03)
[2017-02-08] MEDS: BACLOFEN (10 MG) 10 MG TABLET GT SCH ×4 (08:48→20:31)
[2017-02-08] MEDS: ACIDOPHILUS/BULGARICUS 1 EACH TAB.CHEW GT SCH ×3 (08:48→17:02)
[2017-02-08] MEDS: METOPROLOL TARTRATE 25 MG TABLET GT SCH ×2 (08:48→17:03)
[2017-02-08] MEDS: ASCORBIC ACID 500 MG TABLET GT SCH ×2 (08:49→17:03)
[2017-02-08] MEDS: CLOPIDOGREL BISULFATE 75 MG TABLET PO SCH (08:49)
[2017-02-08] MEDS: HYDROCODONE/APAP 10/325MG 1 EA TABLET GT SCH ×2 (08:49→20:31)
[2017-02-08] MEDS: FAMOTIDINE (20 MG) 20 MG TABLET GT SCH ×2 (08:49→20:31)
[2017-02-08] MEDS: CALCITRIOL 0.25 MCG CAPSULE PO SCH (08:49)
[2017-02-08] MEDS: CALCIUM CARBONATE 500 MG TAB.CHEW GT SCH ×3 (08:49→17:03)
[2017-02-08] MEDS: VENELEX OINTMENT TP SCH ×6 (09:00→21:03)
[2017-02-08] MEDS: HYDROGEN PEROXIDE 480 ML BOTTLE TP SCH ×2 (09:20→20:32)
[2017-02-08] MEDS: Z GUARD REMEDY 4 OZ OINT TP SCH ×4 (09:20→21:03)
[2017-02-08] MEDS: Z GUARD REMEDY 2 OZ OINT TP SCH ×2 (09:20→21:03)
[2017-02-08] MEDS: MINERAL OIL/PETROL OINT 396 GM JAR TP SCH ×3 (09:20→17:03)
[2017-02-08] MEDS: VITAMINS A AND D 56.7 GM TUBE TP SCH ×2 (09:20→21:03)
--- NOTE | 2017-02-08 16:59 | NUR ---
CARLI Mitchell came to see patient to debride patient's wound, however patient does not want to do it.
[2017-02-08 19:32] VITALS: BP 123/60
[2017-02-08] MEDS: POLYETHYLENE GLYCOL 3350 17 GM POWD.PACK GT SCH (20:31)
[2017-02-08] MEDS: CRANBERRY GT SCH (20:31)
[2017-02-08] MEDS: ENOXAPARIN SODIUM 40 MG/0.4 ML DISP.SYRIN SQ SCH (20:31)
[2017-02-08] MEDS: MULTIVIT, IRON, MIN NO. 8, FA 1 TAB GT SCH (20:32)
[2017-02-08] MEDS: PROSOURCE / PROSTAT (PYXIS) 30 ML UDC GT SCH (20:32)
[2017-02-08] MEDS: ATORVASTATIN CALCIUM 20MG TABLET GT SCH (21:03)
[2017-02-09] MEDS: CHLORHEXIDINE GLUCONATE 15 ML UDC MM SCH ×2 (06:07→16:13)
[2017-02-09 07:53] VITALS: BP 109/76
[2017-02-09] MEDS: ESCITALOPRAM OXALATE (10 MG) 10 MG TABLET GT SCH (08:35)
[2017-02-09] MEDS: ASCORBIC ACID 500 MG TABLET GT SCH ×2 (08:35→16:13)
[2017-02-09] MEDS: CALCITRIOL 0.25 MCG CAPSULE PO SCH (08:35)
[2017-02-09] MEDS: CLOPIDOGREL BISULFATE 75 MG TABLET PO SCH (08:35)
[2017-02-09] MEDS: GABAPENTIN 300 MG CAPSULE GT SCH ×3 (08:35→16:13)
[2017-02-09] MEDS: BACLOFEN (10 MG) 10 MG TABLET GT SCH ×4 (08:35→21:36)
[2017-02-09] MEDS: METOPROLOL TARTRATE 25 MG TABLET GT SCH ×2 (08:35→16:13)
[2017-02-09] MEDS: MINERAL OIL/PETROL OINT 396 GM JAR TP SCH ×3 (08:35→16:13)
[2017-02-09] MEDS: CALCIUM CARBONATE 500 MG TAB.CHEW GT SCH ×3 (08:35→16:13)
[2017-02-09] MEDS: FAMOTIDINE (20 MG) 20 MG TABLET GT SCH ×2 (08:35→21:37)
[2017-02-09] MEDS: HYDROCODONE/APAP 10/325MG 1 EA TABLET GT SCH ×2 (08:35→21:36)
[2017-02-09] MEDS: ACIDOPHILUS/BULGARICUS 1 EACH TAB.CHEW GT SCH ×3 (08:35→16:12)
[2017-02-09] MEDS: Z GUARD REMEDY 4 OZ OINT TP SCH ×4 (10:00→21:38)
[2017-02-09] MEDS: VENELEX OINTMENT TP SCH ×6 (10:00→21:37)
[2017-02-09] MEDS: Z GUARD REMEDY 2 OZ OINT TP SCH ×2 (10:00→21:37)
[2017-02-09] MEDS: VITAMINS A AND D 56.7 GM TUBE TP SCH ×2 (10:00→21:38)
[2017-02-09] MEDS: HYDROGEN PEROXIDE 480 ML BOTTLE TP SCH ×2 (10:00→21:37)
[2017-02-09] MEDS: HYDROCODONE/APAP 5/325MG 1 EACH TABLET GT PRN (16:12)
[2017-02-09] MEDS: ALDARA TP SCH (16:12)
[2017-02-09 19:51] VITALS: BP 99/59
[2017-02-09] MEDS: ENOXAPARIN SODIUM 40 MG/0.4 ML DISP.SYRIN SQ SCH (20:00)
[2017-02-09] MEDS: CRANBERRY GT SCH (21:36)
[2017-02-09] MEDS: POLYETHYLENE GLYCOL 3350 17 GM POWD.PACK GT SCH (21:36)
[2017-02-09] MEDS: PROSOURCE / PROSTAT (PYXIS) 30 ML UDC GT SCH (21:37)
[2017-02-09] MEDS: MULTIVIT, IRON, MIN NO. 8, FA 1 TAB GT SCH (21:37)
[2017-02-09] MEDS: ATORVASTATIN CALCIUM 20MG TABLET GT SCH (21:38)
[2017-02-10] MEDS: OXYCODONE GT PRN (00:09)
[2017-02-10] MEDS: APAP GT PRN (00:09)
--- NOTE | 2017-02-10 00:11 | NUR ---
TOLL LINE MECHANIC NOTE Patient c/o of pain on sacral area 8/10, Comfort measure provided, repositioned, ineffective. PRN Percocet 10-325 mg given via GT. Continue monitoring and comfort measures.
[2017-02-10] MEDS: CHLORHEXIDINE GLUCONATE 15 ML UDC MM SCH ×2 (07:00→17:00)
[2017-02-10 07:33] VITALS: BP 128/75
[2017-02-10] MEDS: BACLOFEN (10 MG) 10 MG TABLET GT SCH ×4 (09:33→21:31)
[2017-02-10] MEDS: ESCITALOPRAM OXALATE (10 MG) 10 MG TABLET GT SCH (09:33)
[2017-02-10] MEDS: ACIDOPHILUS/BULGARICUS 1 EACH TAB.CHEW GT SCH ×3 (09:33→17:00)
[2017-02-10] MEDS: GABAPENTIN 300 MG CAPSULE GT SCH ×3 (09:34→17:00)
[2017-02-10] MEDS: METOPROLOL TARTRATE 25 MG TABLET GT SCH ×2 (09:34→17:00)
[2017-02-10] MEDS: HYDROCODONE/APAP 10/325MG 1 EA TABLET GT SCH ×2 (09:35→21:32)
[2017-02-10] MEDS: ASCORBIC ACID 500 MG TABLET GT SCH ×2 (09:35→17:00)
[2017-02-10] MEDS: FAMOTIDINE (20 MG) 20 MG TABLET GT SCH ×2 (09:35→21:32)
[2017-02-10] MEDS: CALCIUM CARBONATE 500 MG TAB.CHEW GT SCH ×3 (09:35→17:00)
[2017-02-10] MEDS: CLOPIDOGREL BISULFATE 75 MG TABLET PO SCH (09:36)
[2017-02-10] MEDS: CALCITRIOL 0.25 MCG CAPSULE PO SCH (09:36)
[2017-02-10] MEDS: HYDROGEN PEROXIDE 480 ML BOTTLE TP SCH ×2 (09:36→21:32)
[2017-02-10] MEDS: MINERAL OIL/PETROL OINT 396 GM JAR TP SCH ×3 (09:36→17:00)
[2017-02-10] MEDS: Z GUARD REMEDY 2 OZ OINT TP SCH ×2 (10:00→21:32)
[2017-02-10] MEDS: Z GUARD REMEDY 4 OZ OINT TP SCH ×4 (10:00→21:32)
[2017-02-10] MEDS: VENELEX OINTMENT TP SCH ×6 (10:00→21:32)
[2017-02-10] MEDS: VITAMINS A AND D 56.7 GM TUBE TP SCH ×2 (10:00→21:33)
[2017-02-10 19:47] VITALS: BP 108/70
[2017-02-10] MEDS: ENOXAPARIN SODIUM 40 MG/0.4 ML DISP.SYRIN SQ SCH (20:56)
[2017-02-10] MEDS: POLYETHYLENE GLYCOL 3350 17 GM POWD.PACK GT SCH (21:31)
[2017-02-10] MEDS: CRANBERRY GT SCH (21:31)
[2017-02-10] MEDS: MULTIVIT, IRON, MIN NO. 8, FA 1 TAB GT SCH (21:32)
[2017-02-10] MEDS: PROSOURCE / PROSTAT (PYXIS) 30 ML UDC GT SCH (21:32)
[2017-02-10] MEDS: ATORVASTATIN CALCIUM 20MG TABLET GT SCH (21:33)
[2017-02-11] MEDS: APAP GT PRN ×2 (01:11→14:00)
[2017-02-11] MEDS: OXYCODONE GT PRN ×2 (01:11→14:00)
[2017-02-11] MEDS: CHLORHEXIDINE GLUCONATE 15 ML UDC MM SCH ×2 (07:00→17:00)
[2017-02-11 07:31] VITALS: BP 128/69
[2017-02-11] MEDS: METOPROLOL TARTRATE 25 MG TABLET GT SCH ×2 (08:03→17:00)
[2017-02-11] MEDS: ACIDOPHILUS/BULGARICUS 1 EACH TAB.CHEW GT SCH ×3 (08:03→17:00)
[2017-02-11] MEDS: ESCITALOPRAM OXALATE (10 MG) 10 MG TABLET GT SCH (08:03)
[2017-02-11] MEDS: GABAPENTIN 300 MG CAPSULE GT SCH ×3 (08:03→17:00)
[2017-02-11] MEDS: BACLOFEN (10 MG) 10 MG TABLET GT SCH ×4 (08:03→21:29)
[2017-02-11] MEDS: CALCIUM CARBONATE 500 MG TAB.CHEW GT SCH ×3 (08:04→17:00)
[2017-02-11] MEDS: HYDROCODONE/APAP 10/325MG 1 EA TABLET GT SCH ×2 (08:04→21:30)
[2017-02-11] MEDS: FAMOTIDINE (20 MG) 20 MG TABLET GT SCH ×2 (08:04→21:30)
[2017-02-11] MEDS: MINERAL OIL/PETROL OINT 396 GM JAR TP SCH ×3 (08:04→17:00)
[2017-02-11] MEDS: ASCORBIC ACID 500 MG TABLET GT SCH ×2 (08:04→17:00)
[2017-02-11] MEDS: CALCITRIOL 0.25 MCG CAPSULE PO SCH (08:04)
[2017-02-11] MEDS: CLOPIDOGREL BISULFATE 75 MG TABLET PO SCH (08:04)
[2017-02-11] MEDS: Z GUARD REMEDY 2 OZ OINT TP SCH ×2 (09:00→21:30)
[2017-02-11] MEDS: VITAMINS A AND D 56.7 GM TUBE TP SCH ×2 (09:00→21:30)
[2017-02-11] MEDS: HYDROGEN PEROXIDE 480 ML BOTTLE TP SCH ×2 (09:00→21:30)
[2017-02-11] MEDS: Z GUARD REMEDY 4 OZ OINT TP SCH ×4 (09:00→21:30)
[2017-02-11] MEDS: VENELEX OINTMENT TP SCH ×6 (09:00→21:30)
--- NOTE | 2017-02-11 10:12 | NUR ---
Seen and examined by Dr. Walker, NNO given.
[2017-02-11 19:36] VITALS: BP 108/73
[2017-02-11] MEDS: ENOXAPARIN SODIUM 40 MG/0.4 ML DISP.SYRIN SQ SCH (20:51)
[2017-02-11] MEDS: POLYETHYLENE GLYCOL 3350 17 GM POWD.PACK GT SCH (21:29)
[2017-02-11] MEDS: CRANBERRY GT SCH (21:29)
[2017-02-11] MEDS: PROSOURCE / PROSTAT (PYXIS) 30 ML UDC GT SCH (21:30)
[2017-02-11] MEDS: MULTIVIT, IRON, MIN NO. 8, FA 1 TAB GT SCH (21:30)
[2017-02-11] MEDS: ATORVASTATIN CALCIUM 20MG TABLET GT SCH (21:30)
[2017-02-12] MEDS: HYDROCODONE/APAP 5/325MG 1 EACH TABLET GT PRN (06:42)
[2017-02-12] MEDS: CHLORHEXIDINE GLUCONATE 15 ML UDC MM SCH ×2 (07:00→17:58)
[2017-02-12 07:59] VITALS: BP 94/62
[2017-02-12] MEDS: ESCITALOPRAM OXALATE (10 MG) 10 MG TABLET GT SCH (08:58)
[2017-02-12] MEDS: BACLOFEN (10 MG) 10 MG TABLET GT SCH ×4 (08:58→21:27)
[2017-02-12] MEDS: ACIDOPHILUS/BULGARICUS 1 EACH TAB.CHEW GT SCH ×3 (08:58→15:49)
[2017-02-12] MEDS: CALCITRIOL 0.25 MCG CAPSULE PO SCH (08:59)
[2017-02-12] MEDS: CLOPIDOGREL BISULFATE 75 MG TABLET PO SCH (08:59)
[2017-02-12] MEDS: MINERAL OIL/PETROL OINT 396 GM JAR TP SCH ×3 (08:59→17:58)
[2017-02-12] MEDS: FAMOTIDINE (20 MG) 20 MG TABLET GT SCH ×2 (08:59→21:28)
[2017-02-12] MEDS: ASCORBIC ACID 500 MG TABLET GT SCH ×2 (08:59→17:58)
[2017-02-12] MEDS: GABAPENTIN 300 MG CAPSULE GT SCH ×3 (08:59→17:58)
[2017-02-12] MEDS: METOPROLOL TARTRATE 25 MG TABLET GT SCH ×2 (08:59→17:58)
[2017-02-12] MEDS: CALCIUM CARBONATE 500 MG TAB.CHEW GT SCH ×3 (08:59→17:58)
[2017-02-12] MEDS: HYDROCODONE/APAP 10/325MG 1 EA TABLET GT SCH ×2 (08:59→21:28)
[2017-02-12] MEDS: VITAMINS A AND D 56.7 GM TUBE TP SCH ×2 (09:00→21:29)
[2017-02-12] MEDS: Z GUARD REMEDY 2 OZ OINT TP SCH ×2 (09:00→21:29)
[2017-02-12] MEDS: VENELEX OINTMENT TP SCH ×6 (09:00→21:28)
[2017-02-12] MEDS: HYDROGEN PEROXIDE 480 ML BOTTLE TP SCH ×2 (09:00→21:28)
[2017-02-12] MEDS: Z GUARD REMEDY 4 OZ OINT TP SCH ×4 (09:00→21:29)
[2017-02-12] MEDS: APAP GT PRN (14:22)
[2017-02-12] MEDS: OXYCODONE GT PRN (14:22)
[2017-02-12 19:30] VITALS: BP 103/60
[2017-02-12] MEDS: ENOXAPARIN SODIUM 40 MG/0.4 ML DISP.SYRIN SQ SCH (20:44)
[2017-02-12] MEDS: CRANBERRY GT SCH (21:27)
[2017-02-12] MEDS: POLYETHYLENE GLYCOL 3350 17 GM POWD.PACK GT SCH (21:27)
[2017-02-12] MEDS: PROSOURCE / PROSTAT (PYXIS) 30 ML UDC GT SCH (21:28)
[2017-02-12] MEDS: MULTIVIT, IRON, MIN NO. 8, FA 1 TAB GT SCH (21:28)
[2017-02-12] MEDS: ATORVASTATIN CALCIUM 20MG TABLET GT SCH (21:29)
[2017-02-13] MEDS: HYDROCODONE/APAP 5/325MG 1 EACH TABLET GT PRN (06:59)
[2017-02-13] MEDS: CHLORHEXIDINE GLUCONATE 15 ML UDC MM SCH ×2 (07:00→17:13)
[2017-02-13 08:00] VITALS: BP 112/80
[2017-02-13] MEDS: GABAPENTIN 300 MG CAPSULE GT SCH ×3 (09:01→17:13)
[2017-02-13] MEDS: ESCITALOPRAM OXALATE (10 MG) 10 MG TABLET GT SCH (09:01)
[2017-02-13] MEDS: ACIDOPHILUS/BULGARICUS 1 EACH TAB.CHEW GT SCH ×3 (09:01→17:13)
[2017-02-13] MEDS: BACLOFEN (10 MG) 10 MG TABLET GT SCH ×4 (09:01→21:50)
[2017-02-13] MEDS: HYDROCODONE/APAP 10/325MG 1 EA TABLET GT SCH ×2 (09:02→21:51)
[2017-02-13] MEDS: CALCITRIOL 0.25 MCG CAPSULE PO SCH (09:02)
[2017-02-13] MEDS: CLOPIDOGREL BISULFATE 75 MG TABLET PO SCH (09:02)
[2017-02-13] MEDS: MINERAL OIL/PETROL OINT 396 GM JAR TP SCH ×3 (09:02→17:13)
[2017-02-13] MEDS: ASCORBIC ACID 500 MG TABLET GT SCH ×2 (09:02→17:13)
[2017-02-13] MEDS: FAMOTIDINE (20 MG) 20 MG TABLET GT SCH ×2 (09:02→21:51)
[2017-02-13] MEDS: CALCIUM CARBONATE 500 MG TAB.CHEW GT SCH ×3 (09:02→17:13)
[2017-02-13] MEDS: METOPROLOL TARTRATE 25 MG TABLET GT SCH ×2 (09:22→17:00)
[2017-02-13] MEDS: VENELEX OINTMENT TP SCH ×6 (10:00→21:53)
[2017-02-13] MEDS: Z GUARD REMEDY 2 OZ OINT TP SCH ×2 (10:00→21:55)
[2017-02-13] MEDS: HYDROGEN PEROXIDE 480 ML BOTTLE TP SCH ×2 (10:00→21:48)
[2017-02-13] MEDS: Z GUARD REMEDY 4 OZ OINT TP SCH ×4 (10:00→21:55)
[2017-02-13] MEDS: VITAMINS A AND D 56.7 GM TUBE TP SCH ×2 (10:00→21:55)
[2017-02-13] MEDS: APAP GT PRN (15:43)
[2017-02-13] MEDS: OXYCODONE GT PRN (15:43)
[2017-02-13] MEDS: ALDARA TP SCH (15:49)
[2017-02-13 19:26] VITALS: BP 108/68
[2017-02-13] MEDS: ENOXAPARIN SODIUM 40 MG/0.4 ML DISP.SYRIN SQ SCH (20:00)
[2017-02-13] MEDS: MULTIVIT, IRON, MIN NO. 8, FA 1 TAB GT SCH (21:47)
[2017-02-13] MEDS: CRANBERRY GT SCH (21:49)
[2017-02-13] MEDS: POLYETHYLENE GLYCOL 3350 17 GM POWD.PACK GT SCH (21:50)
[2017-02-13] MEDS: PROSOURCE / PROSTAT (PYXIS) 30 ML UDC GT SCH (21:52)
[2017-02-13] MEDS: ATORVASTATIN CALCIUM 20MG TABLET GT SCH (21:56)
[2017-02-14] MEDS: CHLORHEXIDINE GLUCONATE 15 ML UDC MM SCH ×2 (07:00→17:23)
[2017-02-14] MEDS: ACIDOPHILUS/BULGARICUS 1 EACH TAB.CHEW GT SCH ×3 (09:00→17:23)
[2017-02-14] MEDS: GABAPENTIN 300 MG CAPSULE GT SCH ×3 (09:02→17:23)
[2017-02-14] MEDS: ESCITALOPRAM OXALATE (10 MG) 10 MG TABLET GT SCH (09:05)
[2017-02-14] MEDS: BACLOFEN (10 MG) 10 MG TABLET GT SCH ×4 (09:05→21:53)
[2017-02-14] MEDS: HYDROCODONE/APAP 10/325MG 1 EA TABLET GT SCH ×2 (09:06→21:54)
[2017-02-14] MEDS: METOPROLOL TARTRATE 25 MG TABLET GT SCH ×2 (09:06→17:23)
[2017-02-14] MEDS: CALCIUM CARBONATE 500 MG TAB.CHEW GT SCH ×3 (09:06→17:23)
[2017-02-14] MEDS: CLOPIDOGREL BISULFATE 75 MG TABLET PO SCH (09:06)
[2017-02-14] MEDS: FAMOTIDINE (20 MG) 20 MG TABLET GT SCH ×2 (09:06→21:54)
[2017-02-14] MEDS: CALCITRIOL 0.25 MCG CAPSULE PO SCH (09:06)
[2017-02-14] MEDS: ASCORBIC ACID 500 MG TABLET GT SCH ×2 (09:06→17:23)
[2017-02-14] MEDS: Z GUARD REMEDY 4 OZ OINT TP SCH ×4 (09:07→21:55)
[2017-02-14] MEDS: MINERAL OIL/PETROL OINT 396 GM JAR TP SCH ×3 (09:07→17:23)
[2017-02-14] MEDS: HYDROGEN PEROXIDE 480 ML BOTTLE TP SCH ×2 (09:07→21:55)
[2017-02-14] MEDS: VENELEX OINTMENT TP SCH ×6 (09:07→21:55)
[2017-02-14] MEDS: VITAMINS A AND D 56.7 GM TUBE TP SCH ×2 (09:07→21:56)
[2017-02-14] MEDS: Z GUARD REMEDY 2 OZ OINT TP SCH ×2 (09:07→21:55)
[2017-02-14] MEDS: ENOXAPARIN SODIUM 40 MG/0.4 ML DISP.SYRIN SQ SCH (20:00)
[2017-02-14 20:03] VITALS: BP 104/59
[2017-02-14] MEDS: CRANBERRY GT SCH (21:52)
[2017-02-14] MEDS: POLYETHYLENE GLYCOL 3350 17 GM POWD.PACK GT SCH (21:53)
[2017-02-14] MEDS: PROSOURCE / PROSTAT (PYXIS) 30 ML UDC GT SCH (21:54)
[2017-02-14] MEDS: MULTIVIT, IRON, MIN NO. 8, FA 1 TAB GT SCH (21:55)
[2017-02-14] MEDS: ATORVASTATIN CALCIUM 20MG TABLET GT SCH (21:56)
[2017-02-15] MEDS: CHLORHEXIDINE GLUCONATE 15 ML UDC MM SCH ×2 (07:00→17:38)
[2017-02-15 07:37] VITALS: BP 95/68
[2017-02-15] MEDS: METOPROLOL TARTRATE 25 MG TABLET GT SCH ×2 (09:00→17:58)
[2017-02-15] MEDS: CLOPIDOGREL BISULFATE 75 MG TABLET PO SCH (09:48)
[2017-02-15] MEDS: GABAPENTIN 300 MG CAPSULE GT SCH ×3 (09:48→17:38)
[2017-02-15] MEDS: HYDROCODONE/APAP 10/325MG 1 EA TABLET GT SCH ×2 (09:48→21:07)
[2017-02-15] MEDS: ACIDOPHILUS/BULGARICUS 1 EACH TAB.CHEW GT SCH ×3 (09:48→17:37)
[2017-02-15] MEDS: CALCIUM CARBONATE 500 MG TAB.CHEW GT SCH ×3 (09:48→17:38)
[2017-02-15] MEDS: FAMOTIDINE (20 MG) 20 MG TABLET GT SCH ×2 (09:48→21:07)
[2017-02-15] MEDS: ASCORBIC ACID 500 MG TABLET GT SCH ×2 (09:48→17:38)
[2017-02-15] MEDS: CALCITRIOL 0.25 MCG CAPSULE PO SCH (09:48)
[2017-02-15] MEDS: ESCITALOPRAM OXALATE (10 MG) 10 MG TABLET GT SCH (09:48)
[2017-02-15] MEDS: BACLOFEN (10 MG) 10 MG TABLET GT SCH ×4 (09:48→21:06)
[2017-02-15] MEDS: VITAMINS A AND D 56.7 GM TUBE TP SCH ×2 (10:48→21:07)
[2017-02-15] MEDS: VENELEX OINTMENT TP SCH ×6 (10:48→21:07)
[2017-02-15] MEDS: Z GUARD REMEDY 2 OZ OINT TP SCH ×2 (10:48→21:07)
[2017-02-15] MEDS: Z GUARD REMEDY 4 OZ OINT TP SCH ×4 (10:48→21:07)
[2017-02-15] MEDS: MINERAL OIL/PETROL OINT 396 GM JAR TP SCH ×3 (10:48→17:52)
[2017-02-15] MEDS: HYDROGEN PEROXIDE 480 ML BOTTLE TP SCH ×2 (10:48→21:07)
--- NOTE | 2017-02-15 14:45 | NUR ---
Seen and examined by TRESTLE MECHANIC Paula ,done wound debridement.resident is alert and oriented, not in distress.minimal bleeding noticed.continue to monitor.
[2017-02-15 20:24] VITALS: BP 115/77
[2017-02-15] MEDS: ENOXAPARIN SODIUM 40 MG/0.4 ML DISP.SYRIN SQ SCH (20:54)
[2017-02-15] MEDS: CRANBERRY GT SCH (21:06)
[2017-02-15] MEDS: POLYETHYLENE GLYCOL 3350 17 GM POWD.PACK GT SCH (21:06)
[2017-02-15] MEDS: PROSOURCE / PROSTAT (PYXIS) 30 ML UDC GT SCH (21:07)
[2017-02-15] MEDS: MULTIVIT, IRON, MIN NO. 8, FA 1 TAB GT SCH (21:07)
[2017-02-15] MEDS: ATORVASTATIN CALCIUM 20MG TABLET GT SCH (21:07)
[2017-02-16] MEDS: OXYCODONE GT PRN (01:46)
[2017-02-16] MEDS: APAP GT PRN (01:46)
[2017-02-16] MEDS: CHLORHEXIDINE GLUCONATE 15 ML UDC MM SCH ×2 (07:00→17:35)
[2017-02-16 07:43] VITALS: BP 132/59
[2017-02-16] MEDS: BACLOFEN (10 MG) 10 MG TABLET GT SCH ×4 (09:58→20:27)
[2017-02-16] MEDS: ACIDOPHILUS/BULGARICUS 1 EACH TAB.CHEW GT SCH ×3 (09:58→17:35)
[2017-02-16] MEDS: GABAPENTIN 300 MG CAPSULE GT SCH ×3 (09:58→17:35)
[2017-02-16] MEDS: METOPROLOL TARTRATE 25 MG TABLET GT SCH ×2 (09:58→17:00)
[2017-02-16] MEDS: ESCITALOPRAM OXALATE (10 MG) 10 MG TABLET GT SCH (09:58)
[2017-02-16] MEDS: HYDROGEN PEROXIDE 480 ML BOTTLE TP SCH ×2 (09:59→20:28)
[2017-02-16] MEDS: CALCIUM CARBONATE 500 MG TAB.CHEW GT SCH ×3 (09:59→17:35)
[2017-02-16] MEDS: HYDROCODONE/APAP 10/325MG 1 EA TABLET GT SCH ×2 (09:59→20:28)
[2017-02-16] MEDS: MINERAL OIL/PETROL OINT 396 GM JAR TP SCH ×3 (09:59→17:35)
[2017-02-16] MEDS: FAMOTIDINE (20 MG) 20 MG TABLET GT SCH ×2 (09:59→20:28)
[2017-02-16] MEDS: CLOPIDOGREL BISULFATE 75 MG TABLET PO SCH (09:59)
[2017-02-16] MEDS: ASCORBIC ACID 500 MG TABLET GT SCH ×2 (09:59→17:35)
[2017-02-16] MEDS: CALCITRIOL 0.25 MCG CAPSULE PO SCH (09:59)
[2017-02-16] MEDS: Z GUARD REMEDY 4 OZ OINT TP SCH ×4 (11:00→20:28)
[2017-02-16] MEDS: VITAMINS A AND D 56.7 GM TUBE TP SCH ×2 (11:00→20:28)
[2017-02-16] MEDS: Z GUARD REMEDY 2 OZ OINT TP SCH ×2 (11:00→20:28)
[2017-02-16] MEDS: VENELEX OINTMENT TP SCH ×6 (11:00→20:28)
--- NOTE | 2017-02-16 11:47 | NUR ---
IDT meeting is to be held on February 25, 2016 from 12:30-1:30pm. Per jvrtdb-pg-dvp Vilma, she is currently out of town and will be back on March 01, 2017. She will not be able to attend the IDT meeting. An update will be given to her once she is back from her vacation.
[2017-02-16] MEDS: HYDROCODONE/APAP 5/325MG 1 EACH TABLET GT PRN (14:21)
[2017-02-16] MEDS: ALDARA TP SCH (15:00)
[2017-02-16 19:49] VITALS: BP 114/65
[2017-02-16] MEDS: ENOXAPARIN SODIUM 40 MG/0.4 ML DISP.SYRIN SQ SCH (20:27)
[2017-02-16] MEDS: CRANBERRY GT SCH (20:27)
[2017-02-16] MEDS: POLYETHYLENE GLYCOL 3350 17 GM POWD.PACK GT SCH (20:27)
[2017-02-16] MEDS: PROSOURCE / PROSTAT (PYXIS) 30 ML UDC GT SCH (20:28)
[2017-02-16] MEDS: MULTIVIT, IRON, MIN NO. 8, FA 1 TAB GT SCH (20:28)
[2017-02-16] MEDS: ATORVASTATIN CALCIUM 20MG TABLET GT SCH (22:07)
[2017-02-17] MEDS: METHOCARBAMOL (750MG) 750 MG TABLET GT PRN (03:06)
[2017-02-17] MEDS: CHLORHEXIDINE GLUCONATE 15 ML UDC MM SCH ×2 (07:00→17:09)
[2017-02-17 07:42] VITALS: BP 121/69
[2017-02-17] MEDS: Z GUARD REMEDY 4 OZ OINT TP SCH ×4 (09:00→21:03)
[2017-02-17] MEDS: VITAMINS A AND D 56.7 GM TUBE TP SCH ×2 (09:00→21:03)
--- NOTE | 2017-02-17 09:12 | NUR ---
bog worker met with the resident who was in a good mood. 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 Resident was able to converse with the social media project manager without any difficulties. He remained content and watching tv.
[2017-02-17] MEDS: ESCITALOPRAM OXALATE (10 MG) 10 MG TABLET GT SCH (09:21)
[2017-02-17] MEDS: ACIDOPHILUS/BULGARICUS 1 EACH TAB.CHEW GT SCH ×3 (09:21→17:08)
[2017-02-17] MEDS: GABAPENTIN 300 MG CAPSULE GT SCH ×3 (09:21→17:08)
[2017-02-17] MEDS: BACLOFEN (10 MG) 10 MG TABLET GT SCH ×4 (09:21→21:02)
[2017-02-17] MEDS: HYDROCODONE/APAP 10/325MG 1 EA TABLET GT SCH ×2 (09:22→21:02)
[2017-02-17] MEDS: METOPROLOL TARTRATE 25 MG TABLET GT SCH ×2 (09:22→17:08)
[2017-02-17] MEDS: CALCIUM CARBONATE 500 MG TAB.CHEW GT SCH ×3 (09:22→17:08)
[2017-02-17] MEDS: FAMOTIDINE (20 MG) 20 MG TABLET GT SCH ×2 (09:22→21:02)
[2017-02-17] MEDS: CLOPIDOGREL BISULFATE 75 MG TABLET PO SCH (09:22)
[2017-02-17] MEDS: CALCITRIOL 0.25 MCG CAPSULE PO SCH (09:22)
[2017-02-17] MEDS: ASCORBIC ACID 500 MG TABLET GT SCH ×2 (09:22→17:08)
[2017-02-17] MEDS: VENELEX OINTMENT TP SCH ×6 (10:22→21:03)
[2017-02-17] MEDS: Z GUARD REMEDY 2 OZ OINT TP SCH ×2 (10:22→21:03)
[2017-02-17] MEDS: HYDROGEN PEROXIDE 480 ML BOTTLE TP SCH ×2 (10:22→21:03)
[2017-02-17] MEDS: MINERAL OIL/PETROL OINT 396 GM JAR TP SCH ×2 (10:22→17:09)
[2017-02-17 19:40] VITALS: BP 119/82
[2017-02-17] MEDS: ENOXAPARIN SODIUM 40 MG/0.4 ML DISP.SYRIN SQ SCH (20:41)
[2017-02-17] MEDS: PROSOURCE / PROSTAT (PYXIS) 30 ML UDC GT SCH (21:02)
[2017-02-17] MEDS: MULTIVIT, IRON, MIN NO. 8, FA 1 TAB GT SCH (21:02)
[2017-02-17] MEDS: CRANBERRY GT SCH (21:02)
[2017-02-17] MEDS: POLYETHYLENE GLYCOL 3350 17 GM POWD.PACK GT SCH (21:02)
[2017-02-17] MEDS: ATORVASTATIN CALCIUM 20MG TABLET GT SCH (21:03)
[2017-02-18] MEDS: CHLORHEXIDINE GLUCONATE 15 ML UDC MM SCH ×2 (07:00→16:52)
[2017-02-18 07:32] VITALS: BP 108/72
[2017-02-18] MEDS: HYDROCODONE/APAP 10/325MG 1 EA TABLET GT SCH ×2 (09:31→20:58)
[2017-02-18] MEDS: ACIDOPHILUS/BULGARICUS 1 EACH TAB.CHEW GT SCH ×3 (09:40→16:52)
[2017-02-18] MEDS: ESCITALOPRAM OXALATE (10 MG) 10 MG TABLET GT SCH (09:40)
[2017-02-18] MEDS: BACLOFEN (10 MG) 10 MG TABLET GT SCH ×4 (09:41→20:57)
[2017-02-18] MEDS: FAMOTIDINE (20 MG) 20 MG TABLET GT SCH ×2 (09:42→20:58)
[2017-02-18] MEDS: ASCORBIC ACID 500 MG TABLET GT SCH ×2 (09:42→16:52)
[2017-02-18] MEDS: METOPROLOL TARTRATE 25 MG TABLET GT SCH ×2 (09:42→16:53)
[2017-02-18] MEDS: CALCIUM CARBONATE 500 MG TAB.CHEW GT SCH ×3 (09:42→16:52)
[2017-02-18] MEDS: GABAPENTIN 300 MG CAPSULE GT SCH ×3 (09:42→16:52)
[2017-02-18] MEDS: CLOPIDOGREL BISULFATE 75 MG TABLET PO SCH (09:42)
[2017-02-18] MEDS: CALCITRIOL 0.25 MCG CAPSULE PO SCH (09:42)
[2017-02-18] MEDS: VENELEX OINTMENT TP SCH ×6 (10:22→20:59)
[2017-02-18] MEDS: Z GUARD REMEDY 4 OZ OINT TP SCH ×4 (10:22→20:59)
[2017-02-18] MEDS: MINERAL OIL/PETROL OINT 396 GM JAR TP SCH ×3 (10:22→17:59)
[2017-02-18] MEDS: Z GUARD REMEDY 2 OZ OINT TP SCH ×2 (10:22→20:59)
[2017-02-18] MEDS: HYDROGEN PEROXIDE 480 ML BOTTLE TP SCH ×2 (10:22→20:58)
[2017-02-18] MEDS: VITAMINS A AND D 56.7 GM TUBE TP SCH ×2 (10:22→20:59)
[2017-02-18 19:37] VITALS: BP 112/62
[2017-02-18] MEDS: CRANBERRY GT SCH (20:57)
[2017-02-18] MEDS: POLYETHYLENE GLYCOL 3350 17 GM POWD.PACK GT SCH (20:57)
[2017-02-18] MEDS: ENOXAPARIN SODIUM 40 MG/0.4 ML DISP.SYRIN SQ SCH (20:57)
[2017-02-18] MEDS: MULTIVIT, IRON, MIN NO. 8, FA 1 TAB GT SCH (20:58)
[2017-02-18] MEDS: PROSOURCE / PROSTAT (PYXIS) 30 ML UDC GT SCH (20:58)
[2017-02-18] MEDS: ATORVASTATIN CALCIUM 20MG TABLET GT SCH (21:39)
[2017-02-19] MEDS: APAP GT PRN (01:34)
[2017-02-19] MEDS: OXYCODONE GT PRN (01:34)
[2017-02-19] MEDS: CHLORHEXIDINE GLUCONATE 15 ML UDC MM SCH ×2 (07:00→16:35)
[2017-02-19 07:28] VITALS: BP 118/72
[2017-02-19] MEDS: ACIDOPHILUS/BULGARICUS 1 EACH TAB.CHEW GT SCH ×3 (08:37→16:35)
[2017-02-19] MEDS: BACLOFEN (10 MG) 10 MG TABLET GT SCH ×4 (08:37→21:20)
[2017-02-19] MEDS: ESCITALOPRAM OXALATE (10 MG) 10 MG TABLET GT SCH (08:37)
[2017-02-19] MEDS: ASCORBIC ACID 500 MG TABLET GT SCH ×2 (08:38→16:35)
[2017-02-19] MEDS: CALCIUM CARBONATE 500 MG TAB.CHEW GT SCH ×3 (08:38→16:35)
[2017-02-19] MEDS: GABAPENTIN 300 MG CAPSULE GT SCH ×3 (08:38→16:35)
[2017-02-19] MEDS: CALCITRIOL 0.25 MCG CAPSULE PO SCH (08:38)
[2017-02-19] MEDS: CLOPIDOGREL BISULFATE 75 MG TABLET PO SCH (08:38)
[2017-02-19] MEDS: FAMOTIDINE (20 MG) 20 MG TABLET GT SCH ×2 (08:38→21:22)
[2017-02-19] MEDS: METOPROLOL TARTRATE 25 MG TABLET GT SCH ×2 (08:38→16:36)
[2017-02-19] MEDS: Z GUARD REMEDY 4 OZ OINT TP SCH ×4 (09:00→21:23)
[2017-02-19] MEDS: Z GUARD REMEDY 2 OZ OINT TP SCH ×2 (09:00→21:23)
[2017-02-19] MEDS: HYDROCODONE/APAP 10/325MG 1 EA TABLET GT SCH ×2 (09:02→21:21)
[2017-02-19] MEDS: HYDROGEN PEROXIDE 480 ML BOTTLE TP SCH ×2 (10:02→21:23)
[2017-02-19] MEDS: VITAMINS A AND D 56.7 GM TUBE TP SCH ×2 (10:02→21:23)
[2017-02-19] MEDS: MINERAL OIL/PETROL OINT 396 GM JAR TP SCH ×3 (10:02→16:43)
[2017-02-19] MEDS: VENELEX OINTMENT TP SCH ×6 (10:02→21:23)
[2017-02-19 19:32] VITALS: BP 133/83
[2017-02-19] MEDS: ENOXAPARIN SODIUM 40 MG/0.4 ML DISP.SYRIN SQ SCH (20:00)
[2017-02-19] MEDS: CRANBERRY GT SCH (21:19)
[2017-02-19] MEDS: MULTIVIT, IRON, MIN NO. 8, FA 1 TAB GT SCH (21:20)
[2017-02-19] MEDS: POLYETHYLENE GLYCOL 3350 17 GM POWD.PACK GT SCH (21:21)
[2017-02-19] MEDS: PROSOURCE / PROSTAT (PYXIS) 30 ML UDC GT SCH (21:22)
[2017-02-19] MEDS: ATORVASTATIN CALCIUM 20MG TABLET GT SCH (21:24)
[2017-02-20] MEDS: APAP GT PRN (03:51)
[2017-02-20] MEDS: OXYCODONE GT PRN (03:51)
[2017-02-20] MEDS: CHLORHEXIDINE GLUCONATE 15 ML UDC MM SCH ×2 (07:00→17:00)
[2017-02-20 07:49] VITALS: BP 110/75
[2017-02-20] MEDS ORDERED: HYDROCODONE/APAP 10/325MG 1 EA TABLET GT ONE (09:30)
[2017-02-20] MEDS: ESCITALOPRAM OXALATE (10 MG) 10 MG TABLET GT SCH (09:43)
[2017-02-20] MEDS: METOPROLOL TARTRATE 25 MG TABLET GT SCH ×2 (09:43→17:00)
[2017-02-20] MEDS: BACLOFEN (10 MG) 10 MG TABLET GT SCH ×4 (09:43→21:34)
[2017-02-20] MEDS: ACIDOPHILUS/BULGARICUS 1 EACH TAB.CHEW GT SCH ×3 (09:43→17:00)
[2017-02-20] MEDS: GABAPENTIN 300 MG CAPSULE GT SCH ×3 (09:43→17:00)
[2017-02-20] MEDS: CALCIUM CARBONATE 500 MG TAB.CHEW GT SCH ×3 (09:44→17:00)
[2017-02-20] MEDS: CLOPIDOGREL BISULFATE 75 MG TABLET PO SCH (09:44)
[2017-02-20] MEDS: ASCORBIC ACID 500 MG TABLET GT SCH ×2 (09:44→17:00)
[2017-02-20] MEDS: HYDROCODONE/APAP 10/325MG 1 EA TABLET GT SCH ×2 (09:44→21:35)
[2017-02-20] MEDS: FAMOTIDINE (20 MG) 20 MG TABLET GT SCH ×2 (09:44→21:35)
[2017-02-20] MEDS: CALCITRIOL 0.25 MCG CAPSULE PO SCH (09:44)
[2017-02-20] MEDS: VITAMINS A AND D 56.7 GM TUBE TP SCH ×2 (10:44→21:36)
[2017-02-20] MEDS: MINERAL OIL/PETROL OINT 396 GM JAR TP SCH ×3 (10:44→17:00)
[2017-02-20] MEDS: Z GUARD REMEDY 2 OZ OINT TP SCH ×2 (10:44→21:36)
[2017-02-20] MEDS: HYDROGEN PEROXIDE 480 ML BOTTLE TP SCH ×2 (10:44→21:36)
[2017-02-20] MEDS: VENELEX OINTMENT TP SCH ×6 (10:44→21:36)
[2017-02-20] MEDS: Z GUARD REMEDY 4 OZ OINT TP SCH ×4 (10:44→21:36)
--- NOTE | 2017-02-20 11:05 | NUR ---
made rounds and seen the pt and no new orders noted.
[2017-02-20] MEDS: ALDARA TP SCH (15:17)
[2017-02-20] MEDS: ENOXAPARIN SODIUM 40 MG/0.4 ML DISP.SYRIN SQ SCH (20:00)
[2017-02-20] MEDS: CRANBERRY GT SCH (21:33)
[2017-02-20] MEDS: MULTIVIT, IRON, MIN NO. 8, FA 1 TAB GT SCH (21:34)
[2017-02-20] MEDS: PROSOURCE / PROSTAT (PYXIS) 30 ML UDC GT SCH (21:35)
[2017-02-20] MEDS: POLYETHYLENE GLYCOL 3350 17 GM POWD.PACK GT SCH (21:35)
[2017-02-20] MEDS: ATORVASTATIN CALCIUM 20MG TABLET GT SCH (21:36)
[2017-02-20 22:31] VITALS: BP 117/65
[2017-02-21] MEDS: APAP GT PRN (02:43)
[2017-02-21] MEDS: OXYCODONE GT PRN (02:43)
--- NOTE | 2017-02-21 02:48 | NUR ---
pt c/o severe pain in the back, given prn meds ostzgzxc43/325 mg, and continue to monitor pt, and raheem pt pain in hour if meds is effective.
[2017-02-21 08:07] VITALS: BP 124/63
[2017-02-21] MEDS: ACIDOPHILUS/BULGARICUS 1 EACH TAB.CHEW GT SCH (08:46)
[2017-02-21] MEDS: ESCITALOPRAM OXALATE (10 MG) 10 MG TABLET GT SCH (08:47)
[2017-02-21] MEDS: BACLOFEN (10 MG) 10 MG TABLET GT SCH (08:47)
[2017-02-21 08:49] VITALS: BP 124/63
[2017-02-21] MEDS: METOPROLOL TARTRATE 25 MG TABLET GT SCH (08:49)
[2017-02-21] MEDS: GABAPENTIN 300 MG CAPSULE GT SCH (08:49)
[2017-02-21] MEDS: ASCORBIC ACID 500 MG TABLET GT SCH (08:50)
[2017-02-21] MEDS: CALCIUM CARBONATE 500 MG TAB.CHEW GT SCH (08:50)
[2017-02-21] MEDS: CALCITRIOL 0.25 MCG CAPSULE PO SCH (08:50)
[2017-02-21] MEDS: CLOPIDOGREL BISULFATE 75 MG TABLET PO SCH (08:50)
[2017-02-21] MEDS: FAMOTIDINE (20 MG) 20 MG TABLET GT SCH (08:50)
[2017-02-21] MEDS: MINERAL OIL/PETROL OINT 396 GM JAR TP SCH (08:58)
== END 2017-02-19 23:59 | disposition still patient (30) | DRG 189 ==
LOC: SA
PROVIDERS: ADMIT Internal Medicine; ATTEND Internal Medicine
PROC: 05H533Z Insertion of Infusion Device into Right Subclavian Vein, Percutaneous Approach (ICD-10-PCS; principal; 2016-10-13)
PROC: B546ZZA Ultrasonography of Right Subclavian Vein, Guidance (ICD-10-PCS; 2016-10-13)
DX: J96.10 Chronic respiratory failure, unspecified whether with hypoxia or hypercapnia (principal); D68.59 Other primary thrombophilia; R53.2 Functional quadriplegia; Z93.0 Tracheostomy status; J44.9 Chronic obstructive pulmonary disease, unspecified; D47.3 Essential (hemorrhagic) thrombocythemia; E11.9 Type 2 diabetes mellitus without complications; I10 Essential (primary) hypertension; D63.8 Anemia in other chronic diseases classified elsewhere; E66.9 Obesity, unspecified; G35 Multiple sclerosis; K21.9 Gastro-esophageal reflux disease without esophagitis; L98.9 Disorder of the skin and subcutaneous tissue, unspecified; Z85.828 Personal history of other malignant neoplasm of skin; Z93.3 Colostomy status
CPT/HCPCS: 31720; 36415; 36569; 71010-TC; 76856-TC; 80048-TC; 80202-TC; 81000-TC; 83735-TC; 84100-TC; 85025-TC; 85610-TC; 85730-TC; 86580-TC; 87040-TC; 87086-TC; 87186-TC; 88305-TC; 88312-TC; 94640-TC; 94762-TC; 94799-TC; A4216; A4623; A6248; A6253; A6402; A7526; J0696; J1650; J2185; J3370; J3490; J7030; J7060; L8501; Q2036; Z7610

== ENCOUNTER → 2016-08-15 | Day surgery (SDC) | payer MEDICARE, MEDICAID ==
[~2016-08-15] MED LIST changes: +BACITRACIN ZINC OINT (15 GM) 15 GM TUBE TP ONE; +BUPIVACAINE MPF 0.5% W/EPI INJ 30 ML VIAL ONE; -CALC-494 GT; +CALC-911 GT; +CALC0.253 GT; -CALC0.253 PO; -CLOP75TA15 GT; +CLOP75TA2 GT; +LIDOCAINE HCL/PF 1% 30 ML SDV ONE
== END | disposition home or self-care (01) ==
LOC: DS 08:48
PROVIDERS: ATTEND Surgery
DX: C44.192 Other specified malignant neoplasm of skin of right eyelid, including canthus (principal)
CPT/HCPCS: 15732; 88305 ×2; J2704; J3490 ×3

== ENCOUNTER → 2017-01-16 | Day surgery (SDC) | payer MEDICARE, MEDICAID ==
[~2017-01-16] MED LIST changes: +ACID1TAB12 GT; +AMIN30LI4 GT; -BACITRACIN ZINC OINT (15 GM) 15 GM TUBE TP ONE; +BALS60OI TP; -BUPIVACAINE MPF 0.5% W/EPI INJ 30 ML VIAL ONE; +CALC-494 GT; -CALC-911 GT; -CALC0.253 GT; +CALC0.253 PO; +CHLO473M5 MM; +CLOP75TA15 GT; -CLOP75TA2 GT; +CRAN405C GT; +HYDR1TOW4 TP; +IMIQ1CRE11 TP; -LIDOCAINE HCL/PF 1% 30 ML SDV ONE; +METH-406 GT; +OXYC-133 GT; +POLY17PO4 GT; +TUBE5VIA2 ID; +VITA56.7 TP
== END | disposition home or self-care (01) ==
LOC: DS 08:55
PROVIDERS: ATTEND Surgery
DX: K94.23 Gastrostomy malfunction (principal); Y83.9 Surgical procedure, unspecified as the cause of abnormal reaction of the patient, or of later complication, without mention of misadventure at the time of the procedure; Y82.9 Unspecified medical devices associated with adverse incidents; J96.10 Chronic respiratory failure, unspecified whether with hypoxia or hypercapnia; I10 Essential (primary) hypertension; E11.9 Type 2 diabetes mellitus without complications; D64.9 Anemia, unspecified; E66.9 Obesity, unspecified; G35 Multiple sclerosis; R53.2 Functional quadriplegia
CPT/HCPCS: 43246; J2704; 43761

== ENCOUNTER 2017-02-20 00:01 | Inpatient (IN) | payer MEDICARE, MEDICAID ==
[~2017-02-20] VITALS: Ht 180.3 cm; Wt 79.4 kg
[~2017-02-20 00:01] MED LIST changes: -ACID1TAB12 GT; -AMIN30LI4 GT; -BALS60OI TP; -CHLO473M5 MM; -CRAN405C GT; -HYDR1TOW4 TP; -IMIQ1CRE11 TP; -METH-406 GT; -OXYC-133 GT; -POLY17PO4 GT; -TUBE5VIA2 ID; -VITA56.7 TP
[2017-02-21] MEDS: HYDROCODONE/APAP 10/325MG 1 EA TABLET GT SCH (10:30)
--- NOTE | 2017-02-21 11:06 | NUR ---
Please see resident's previous account [id number] for Social Service assessments, evaluations and notes.
--- NOTE | 2017-02-21 11:07 | NUR ---
RAVI previously reminded fkajic-bu-yft [facility] about IDT meeting to be held on February 24, 2017. She stated that she will be out of town and will not be able to attend.
[2017-02-21] MEDS ORDERED: BISACODYL SUPP (10 MG) 10 MG/SUPP.RECT SUPP.RECT RC PRN (11:08)
[2017-02-21] MEDS ORDERED: ONDANSETRON 4 MG TAB.RAPDIS GT PRN (11:08)
[2017-02-21] MEDS ORDERED: TUBERCULIN,PURIF.PROT.DERIV. 5 TU/0.1 ML VIAL ID SCH (11:08)
[2017-02-21] MEDS ORDERED: ENOXAPARIN SODIUM 40 MG/0.4 ML DISP.SYRIN SQ SCH (11:08)
[2017-02-21] MEDS: ACIDOPHILUS/BULGARICUS 1 EACH TAB.CHEW GT SCH ×2 (12:02→17:57)
[2017-02-21] MEDS: BACLOFEN (10 MG) 10 MG TABLET GT SCH ×3 (12:14→21:58)
[2017-02-21] MEDS: GABAPENTIN 300 MG CAPSULE GT SCH ×2 (12:15→17:59)
[2017-02-21] MEDS: MINERAL OIL/PETROL OINT 396 GM JAR TP SCH ×2 (12:16→17:00)
[2017-02-21] MEDS: CALCIUM CARBONATE 500 MG TAB.CHEW GT SCH ×2 (12:16→17:00)
[2017-02-21] MEDS ORDERED: ACID1TAB12 GT (12:24)
[2017-02-21] MEDS ORDERED: CHLO473M5 MM (12:24)
[2017-02-21] MEDS ORDERED: CRAN405C GT (12:24)
[2017-02-21] MEDS ORDERED: AMIN30LI4 GT (12:24)
[2017-02-21] MEDS ORDERED: HYDR1TOW4 TP ×2 (12:24)
[2017-02-21] MEDS ORDERED: VITA56.7 TP (12:24)
[2017-02-21] MEDS ORDERED: OXYC-133 GT (12:24)
[2017-02-21] MEDS ORDERED: POLY17PO4 GT (12:24)
[2017-02-21] MEDS ORDERED: IMIQ1CRE11 TP (12:24)
[2017-02-21] MEDS ORDERED: METH-406 GT (12:24)
[2017-02-21] MEDS ORDERED: ALLA266C2 TP (12:24)
[2017-02-21] MEDS ORDERED: TUBE5VIA2 ID (12:24)
[2017-02-21] MEDS ORDERED: BALS60OI TP (12:24)
[2017-02-21] MEDS: CHLORHEXIDINE GLUCONATE 15 ML UDC MM SCH (17:00)
[2017-02-21] MEDS: ASCORBIC ACID 500 MG TABLET GT SCH (17:00)
[2017-02-21] MEDS: APAP GT PRN (17:57)
[2017-02-21] MEDS: OXYCODONE GT PRN (17:57)
[2017-02-21] MEDS: METOPROLOL TARTRATE 25 MG TABLET GT SCH (17:58)
--- NOTE | 2017-02-21 19:30 | NUR ---
Please see resident's original account [id number] for all assessments and nurses notes. Originally admitted on 04/15/14. Addendum: 02/22/17 at 0633 by NAI ARAIZA RN --CORRECTION---ORIGINAL ACCOUNT: [id number]
[2017-02-21] MEDS: ENOXAPARIN SODIUM 40 MG/0.4 ML DISP.SYRIN SQ SCH (20:00)
[2017-02-21] MEDS: VENELEX OINTMENT TP SCH ×3 (21:00)
[2017-02-21] MEDS: Z GUARD REMEDY 4 OZ OINT TP SCH ×2 (21:00)
[2017-02-21] MEDS: Z GUARD REMEDY 2 OZ OINT TP SCH (21:00)
[2017-02-21] MEDS: VITAMINS A AND D 56.7 GM TUBE TP SCH (21:00)
[2017-02-21] MEDS: CRANBERRY GT SCH (21:57)
[2017-02-21] MEDS: FAMOTIDINE (20 MG) 20 MG TABLET GT SCH (21:58)
[2017-02-21] MEDS: POLYETHYLENE GLYCOL 3350 17 GM POWD.PACK GT SCH (21:58)
[2017-02-21] MEDS: PROSOURCE / PROSTAT (PYXIS) 30 ML UDC GT SCH (21:59)
[2017-02-21] MEDS: MULTIVIT, IRON, MIN NO. 8, FA 1 TAB GT SCH (21:59)
[2017-02-21] MEDS: HYDROGEN PEROXIDE 480 ML BOTTLE TP SCH (22:00)
[2017-02-21] MEDS: ATORVASTATIN CALCIUM 20MG TABLET GT SCH (22:01)
[2017-02-21 22:24] VITALS: BP 110/65
[2017-02-22] MEDS: HYDROCODONE/APAP 5/325MG 1 EACH TABLET GT PRN (01:00)
[2017-02-22] MEDS: CHLORHEXIDINE GLUCONATE 15 ML UDC MM SCH ×2 (07:00→17:08)
[2017-02-22 07:39] VITALS: BP 99/55
[2017-02-22] MEDS: ACIDOPHILUS/BULGARICUS 1 EACH TAB.CHEW GT SCH ×3 (08:36→17:08)
[2017-02-22] MEDS: GABAPENTIN 300 MG CAPSULE GT SCH ×3 (08:36→17:08)
[2017-02-22] MEDS: BACLOFEN (10 MG) 10 MG TABLET GT SCH ×4 (08:36→21:18)
[2017-02-22] MEDS: HYDROCODONE/APAP 10/325MG 1 EA TABLET GT SCH ×2 (08:36→21:55)
[2017-02-22] MEDS: FAMOTIDINE (20 MG) 20 MG TABLET GT SCH ×2 (08:36→21:18)
[2017-02-22] MEDS: CALCIUM CARBONATE 500 MG TAB.CHEW GT SCH ×3 (08:36→17:08)
[2017-02-22] MEDS: METOPROLOL TARTRATE 25 MG TABLET GT SCH ×2 (08:36→17:08)
[2017-02-22] MEDS: ASCORBIC ACID 500 MG TABLET GT SCH ×2 (08:36→17:08)
[2017-02-22] MEDS: ESCITALOPRAM OXALATE (10 MG) 10 MG TABLET GT SCH (08:36)
[2017-02-22] MEDS: CLOPIDOGREL BISULFATE 75 MG TABLET PO SCH (08:36)
[2017-02-22] MEDS: CALCITRIOL 0.25 MCG CAPSULE PO SCH (08:37)
[2017-02-22] MEDS: Z GUARD REMEDY 2 OZ OINT TP SCH ×2 (08:37→22:30)
[2017-02-22] MEDS: MINERAL OIL/PETROL OINT 396 GM JAR TP SCH ×3 (08:37→17:08)
[2017-02-22] MEDS: VENELEX OINTMENT TP SCH ×6 (08:37→22:30)
[2017-02-22] MEDS: HYDROGEN PEROXIDE 480 ML BOTTLE TP SCH ×2 (08:37→22:30)
[2017-02-22] MEDS: Z GUARD REMEDY 4 OZ OINT TP SCH ×4 (08:37→22:30)
[2017-02-22] MEDS: VITAMINS A AND D 56.7 GM TUBE TP SCH ×2 (08:37→22:30)
[2017-02-22] MEDS: OXYCODONE GT PRN (15:00)
[2017-02-22] MEDS: APAP GT PRN (15:00)
[2017-02-22 20:25] VITALS: BP 124/73
[2017-02-22] MEDS: ENOXAPARIN SODIUM 40 MG/0.4 ML DISP.SYRIN SQ SCH (21:00)
[2017-02-22] MEDS: CRANBERRY GT SCH (21:17)
[2017-02-22] MEDS: PROSOURCE / PROSTAT (PYXIS) 30 ML UDC GT SCH (21:18)
[2017-02-22] MEDS: ATORVASTATIN CALCIUM 20MG TABLET GT SCH (21:18)
[2017-02-22] MEDS: POLYETHYLENE GLYCOL 3350 17 GM POWD.PACK GT SCH (21:18)
[2017-02-22] MEDS: MULTIVIT, IRON, MIN NO. 8, FA 1 TAB GT SCH (21:18)
[2017-02-22] MEDS: METHOCARBAMOL (750MG) 750 MG TABLET GT PRN (23:53)
[2017-02-23] MEDS: APAP GT PRN ×2 (03:04→17:36)
[2017-02-23] MEDS: OXYCODONE GT PRN ×2 (03:04→17:36)
[2017-02-23 07:37] VITALS: BP 127/83
[2017-02-23] MEDS: CHLORHEXIDINE GLUCONATE 15 ML UDC MM SCH ×2 (08:00→17:36)
[2017-02-23] MEDS: Z GUARD REMEDY 4 OZ OINT TP SCH ×4 (09:00→21:11)
[2017-02-23] MEDS: VENELEX OINTMENT TP SCH ×6 (09:00→21:10)
[2017-02-23] MEDS: ACIDOPHILUS/BULGARICUS 1 EACH TAB.CHEW GT SCH ×3 (09:32→17:35)
[2017-02-23] MEDS: BACLOFEN (10 MG) 10 MG TABLET GT SCH ×4 (09:33→21:08)
[2017-02-23] MEDS: GABAPENTIN 300 MG CAPSULE GT SCH ×3 (09:33→17:35)
[2017-02-23] MEDS: ESCITALOPRAM OXALATE (10 MG) 10 MG TABLET GT SCH (09:33)
[2017-02-23] MEDS: METOPROLOL TARTRATE 25 MG TABLET GT SCH ×2 (09:33→17:35)
[2017-02-23] MEDS: MINERAL OIL/PETROL OINT 396 GM JAR TP SCH ×2 (09:34→21:10)
[2017-02-23] MEDS: CALCITRIOL 0.25 MCG CAPSULE PO SCH (09:34)
[2017-02-23] MEDS: CALCIUM CARBONATE 500 MG TAB.CHEW GT SCH ×3 (09:34→17:36)
[2017-02-23] MEDS: HYDROGEN PEROXIDE 480 ML BOTTLE TP SCH ×2 (09:34→21:10)
[2017-02-23] MEDS: FAMOTIDINE (20 MG) 20 MG TABLET GT SCH ×2 (09:34→21:10)
[2017-02-23] MEDS: CLOPIDOGREL BISULFATE 75 MG TABLET PO SCH (09:34)
[2017-02-23] MEDS: ASCORBIC ACID 500 MG TABLET GT SCH ×2 (09:34→17:36)
[2017-02-23] MEDS: HYDROCODONE/APAP 10/325MG 1 EA TABLET GT SCH ×2 (09:34→21:09)
--- NOTE | 2017-02-23 11:00 | NUR ---
kettle worker assisted the resident in making a phone call to his brother Siva. Resident appreciative of the help. SW also provided her cell number to resident's brother as he asked what is the best way to set up a phone conversation with the resident.
[2017-02-23] MEDS: ALDARA TP SCH (11:08)
[2017-02-23] MEDS: ENOXAPARIN SODIUM 40 MG/0.4 ML DISP.SYRIN SQ SCH (20:00)
[2017-02-23 20:17] VITALS: BP 110/72
[2017-02-23] MEDS: CRANBERRY GT SCH (21:08)
[2017-02-23] MEDS: POLYETHYLENE GLYCOL 3350 17 GM POWD.PACK GT SCH (21:08)
[2017-02-23] MEDS: MULTIVIT, IRON, MIN NO. 8, FA 1 TAB GT SCH (21:10)
[2017-02-23] MEDS: PROSOURCE / PROSTAT (PYXIS) 30 ML UDC GT SCH (21:10)
[2017-02-23] MEDS: ATORVASTATIN CALCIUM 20MG TABLET GT SCH (21:11)
[2017-02-24] MEDS: APAP GT PRN (00:25)
[2017-02-24] MEDS: OXYCODONE GT PRN (00:25)
[2017-02-24] MEDS: HYDROCODONE/APAP 5/325MG 1 EACH TABLET GT PRN (06:35)
[2017-02-24] MEDS: CHLORHEXIDINE GLUCONATE 15 ML UDC MM SCH ×2 (07:00→16:24)
[2017-02-24 07:25] VITALS: BP 115/65
[2017-02-24] MEDS: METOPROLOL TARTRATE 25 MG TABLET GT SCH ×2 (08:34→16:24)
[2017-02-24] MEDS: ESCITALOPRAM OXALATE (10 MG) 10 MG TABLET GT SCH (08:34)
[2017-02-24] MEDS: ACIDOPHILUS/BULGARICUS 1 EACH TAB.CHEW GT SCH ×3 (08:34→16:23)
[2017-02-24] MEDS: GABAPENTIN 300 MG CAPSULE GT SCH ×3 (08:34→16:24)
[2017-02-24] MEDS: BACLOFEN (10 MG) 10 MG TABLET GT SCH ×4 (08:34→21:02)
[2017-02-24] MEDS: CALCIUM CARBONATE 500 MG TAB.CHEW GT SCH ×3 (08:35→16:24)
[2017-02-24] MEDS: ASCORBIC ACID 500 MG TABLET GT SCH ×2 (08:35→16:24)
[2017-02-24] MEDS: CLOPIDOGREL BISULFATE 75 MG TABLET PO SCH (08:35)
[2017-02-24] MEDS: CALCITRIOL 0.25 MCG CAPSULE PO SCH (08:35)
[2017-02-24] MEDS: FAMOTIDINE (20 MG) 20 MG TABLET GT SCH ×2 (08:35→21:02)
[2017-02-24] MEDS: HYDROCODONE/APAP 10/325MG 1 EA TABLET GT SCH ×2 (09:17→21:40)
[2017-02-24] MEDS: HYDROGEN PEROXIDE 480 ML BOTTLE TP SCH ×2 (10:17→22:30)
[2017-02-24] MEDS: VENELEX OINTMENT TP SCH ×6 (10:17→22:30)
[2017-02-24] MEDS: MINERAL OIL/PETROL OINT 396 GM JAR TP SCH ×2 (10:17→22:30)
[2017-02-24] MEDS: NEOMY SULF/BACITRAC ZN/POLY 15 GM TUBE TP SCH (10:17)
[2017-02-24] MEDS: Z GUARD REMEDY 4 OZ OINT TP SCH ×4 (10:17→22:30)
--- NOTE | 2017-02-24 11:27 | NUR ---
Left a message, (c/o Madison) to Dr. Gonzalez reminding him of monthly trach change.
--- NOTE | 2017-02-24 13:32 | NUR ---
INTERDISCIPLINARY TEAM CONFERENCE (IDT) was held today. Cjgvfe-ar-raj Vilma unable to attend. Dr. Ugarte and the interdisciplinary team reviewed the current plan of care in detail. New orders were reviewed. Resident due for trach change by 03/02/2017. Local treatment continued for sacral wound on buttocks and upper back. No new orders were given.
--- NOTE | 2017-02-24 15:17 | NUR ---
Spoke to the resident, as he was requesting to see her. He stated that he wants his rpaaka-us-xkp to get him some supplies. SW informed him that she was still in [place] but would be coming back. RAVI stated that she can check in next week with him and send his ayfhqr-lb-yyq a list of supplies that he needs. He was okay with this and appreciative for the secondary social studies teacher visiting him.
--- NOTE | 2017-02-24 18:00 | NUR ---
Seen and examined by Peggy Hoffman NP for Dr. Ugarte no new order given.
[2017-02-24] MEDS: ENOXAPARIN SODIUM 40 MG/0.4 ML DISP.SYRIN SQ SCH (21:00)
[2017-02-24] MEDS: POLYETHYLENE GLYCOL 3350 17 GM POWD.PACK GT SCH (21:02)
[2017-02-24] MEDS: CRANBERRY GT SCH (21:02)
[2017-02-24] MEDS: PROSOURCE / PROSTAT (PYXIS) 30 ML UDC GT SCH (21:02)
[2017-02-24] MEDS: MULTIVIT, IRON, MIN NO. 8, FA 1 TAB GT SCH (21:02)
[2017-02-24] MEDS: ATORVASTATIN CALCIUM 20MG TABLET GT SCH (21:03)
[2017-02-24 21:16] VITALS: BP 118/69
[2017-02-25] MEDS: METHOCARBAMOL (750MG) 750 MG TABLET GT PRN (00:20)
[2017-02-25] MEDS: APAP GT PRN (05:01)
[2017-02-25] MEDS: OXYCODONE GT PRN (05:01)
[2017-02-25] MEDS: CHLORHEXIDINE GLUCONATE 15 ML UDC MM SCH ×2 (07:00→17:10)
[2017-02-25 07:29] VITALS: BP 128/72
[2017-02-25] MEDS: ESCITALOPRAM OXALATE (10 MG) 10 MG TABLET GT SCH (09:44)
[2017-02-25] MEDS: GABAPENTIN 300 MG CAPSULE GT SCH ×3 (09:44→17:10)
[2017-02-25] MEDS: METOPROLOL TARTRATE 25 MG TABLET GT SCH ×2 (09:44→17:10)
[2017-02-25] MEDS: BACLOFEN (10 MG) 10 MG TABLET GT SCH ×4 (09:44→21:14)
[2017-02-25] MEDS: ACIDOPHILUS/BULGARICUS 1 EACH TAB.CHEW GT SCH ×3 (09:44→17:10)
[2017-02-25] MEDS: HYDROCODONE/APAP 10/325MG 1 EA TABLET GT SCH ×2 (09:45→22:00)
[2017-02-25] MEDS: FAMOTIDINE (20 MG) 20 MG TABLET GT SCH ×2 (09:45→21:14)
[2017-02-25] MEDS: CALCIUM CARBONATE 500 MG TAB.CHEW GT SCH ×3 (09:45→17:10)
[2017-02-25] MEDS: CALCITRIOL 0.25 MCG CAPSULE PO SCH (09:45)
[2017-02-25] MEDS: HYDROGEN PEROXIDE 480 ML BOTTLE TP SCH ×2 (09:45→21:14)
[2017-02-25] MEDS: Z GUARD REMEDY 4 OZ OINT TP SCH ×2 (09:45)
[2017-02-25] MEDS: ASCORBIC ACID 500 MG TABLET GT SCH ×2 (09:45→17:10)
[2017-02-25] MEDS: VENELEX OINTMENT TP SCH ×3 (09:45)
[2017-02-25] MEDS: MINERAL OIL/PETROL OINT 396 GM JAR TP SCH ×2 (09:45→21:14)
[2017-02-25] MEDS: CLOPIDOGREL BISULFATE 75 MG TABLET PO SCH (09:45)
[2017-02-25] MEDS: NEOMY SULF/BACITRAC ZN/POLY 15 GM TUBE TP SCH (09:45)
[2017-02-25] MEDS: HYDROCODONE/APAP 5/325MG 1 EACH TABLET GT PRN (14:59)
[2017-02-25 19:58] VITALS: BP 116/81
[2017-02-25] MEDS: ENOXAPARIN SODIUM 40 MG/0.4 ML DISP.SYRIN SQ SCH (20:00)
[2017-02-25] MEDS: CRANBERRY GT SCH (21:14)
[2017-02-25] MEDS: MULTIVIT, IRON, MIN NO. 8, FA 1 TAB GT SCH (21:14)
[2017-02-25] MEDS: PROSOURCE / PROSTAT (PYXIS) 30 ML UDC GT SCH (21:14)
[2017-02-25] MEDS: POLYETHYLENE GLYCOL 3350 17 GM POWD.PACK GT SCH (21:14)
[2017-02-25] MEDS: ATORVASTATIN CALCIUM 20MG TABLET GT SCH (22:17)
[2017-02-26] MEDS: METHOCARBAMOL (750MG) 750 MG TABLET GT PRN (01:37)
[2017-02-26] MEDS: CHLORHEXIDINE GLUCONATE 15 ML UDC MM SCH ×2 (07:32→17:36)
[2017-02-26 07:53] VITALS: BP 124/69
[2017-02-26] MEDS: MINERAL OIL/PETROL OINT 396 GM JAR TP SCH ×2 (09:00→21:33)
[2017-02-26] MEDS: NEOMY SULF/BACITRAC ZN/POLY 15 GM TUBE TP SCH (09:00)
[2017-02-26] MEDS: HYDROGEN PEROXIDE 480 ML BOTTLE TP SCH ×2 (09:00→21:33)
[2017-02-26] MEDS: ACIDOPHILUS/BULGARICUS 1 EACH TAB.CHEW GT SCH ×3 (09:46→17:36)
[2017-02-26] MEDS: ESCITALOPRAM OXALATE (10 MG) 10 MG TABLET GT SCH (09:46)
[2017-02-26] MEDS: BACLOFEN (10 MG) 10 MG TABLET GT SCH ×4 (09:46→21:32)
[2017-02-26] MEDS: GABAPENTIN 300 MG CAPSULE GT SCH ×3 (09:47→17:36)
[2017-02-26] MEDS: CALCITRIOL 0.25 MCG CAPSULE PO SCH (09:47)
[2017-02-26] MEDS: HYDROCODONE/APAP 10/325MG 1 EA TABLET GT SCH ×2 (09:47→21:33)
[2017-02-26] MEDS: FAMOTIDINE (20 MG) 20 MG TABLET GT SCH ×2 (09:47→21:33)
[2017-02-26] MEDS: CLOPIDOGREL BISULFATE 75 MG TABLET PO SCH (09:47)
[2017-02-26] MEDS: METOPROLOL TARTRATE 25 MG TABLET GT SCH ×2 (09:47→17:36)
[2017-02-26] MEDS: ASCORBIC ACID 500 MG TABLET GT SCH ×2 (09:47→17:36)
[2017-02-26] MEDS: CALCIUM CARBONATE 500 MG TAB.CHEW GT SCH ×3 (09:47→17:36)
[2017-02-26 19:50] VITALS: BP 106/62
[2017-02-26] MEDS: ENOXAPARIN SODIUM 40 MG/0.4 ML DISP.SYRIN SQ SCH (20:00)
[2017-02-26] MEDS: POLYETHYLENE GLYCOL 3350 17 GM POWD.PACK GT SCH (21:32)
[2017-02-26] MEDS: CRANBERRY GT SCH (21:32)
[2017-02-26] MEDS: MULTIVIT, IRON, MIN NO. 8, FA 1 TAB GT SCH (21:33)
[2017-02-26] MEDS: PROSOURCE / PROSTAT (PYXIS) 30 ML UDC GT SCH (21:33)
[2017-02-26] MEDS: ATORVASTATIN CALCIUM 20MG TABLET GT SCH (21:33)
[2017-02-26] MEDS: VENELEX OINTMENT TP SCH ×3 (21:33)
[2017-02-27] MEDS: CHLORHEXIDINE GLUCONATE 15 ML UDC MM SCH ×2 (07:46→18:00)
[2017-02-27 08:01] VITALS: BP 128/62
[2017-02-27] MEDS: HYDROCODONE/APAP 5/325MG 1 EACH TABLET GT PRN ×2 (08:29→18:51)
[2017-02-27] MEDS: ACIDOPHILUS/BULGARICUS 1 EACH TAB.CHEW GT SCH ×3 (08:34→18:00)
[2017-02-27] MEDS: ESCITALOPRAM OXALATE (10 MG) 10 MG TABLET GT SCH (08:34)
[2017-02-27] MEDS: BACLOFEN (10 MG) 10 MG TABLET GT SCH ×4 (08:35→21:06)
[2017-02-27] MEDS: GABAPENTIN 300 MG CAPSULE GT SCH ×3 (08:35→18:00)
[2017-02-27] MEDS: FAMOTIDINE (20 MG) 20 MG TABLET GT SCH ×2 (08:36→21:06)
[2017-02-27] MEDS: CLOPIDOGREL BISULFATE 75 MG TABLET PO SCH (08:36)
[2017-02-27] MEDS: ASCORBIC ACID 500 MG TABLET GT SCH ×2 (08:37→18:00)
[2017-02-27] MEDS: CALCITRIOL 0.25 MCG CAPSULE PO SCH (08:37)
[2017-02-27] MEDS: CALCIUM CARBONATE 500 MG TAB.CHEW GT SCH ×3 (08:37→18:00)
[2017-02-27] MEDS: METOPROLOL TARTRATE 25 MG TABLET GT SCH ×2 (08:39→18:00)
[2017-02-27] MEDS: HYDROGEN PEROXIDE 480 ML BOTTLE TP SCH ×2 (09:00→21:06)
[2017-02-27] MEDS: MINERAL OIL/PETROL OINT 396 GM JAR TP SCH ×2 (09:00→21:06)
[2017-02-27] MEDS: NEOMY SULF/BACITRAC ZN/POLY 15 GM TUBE TP SCH (09:00)
[2017-02-27] MEDS: ALDARA TP SCH (11:08)
[2017-02-27] MEDS: HYDROCODONE/APAP 10/325MG 1 EA TABLET GT SCH ×2 (14:30→23:00)
[2017-02-27] MEDS: VENELEX OINTMENT TP SCH ×6 (15:00→23:30)
--- NOTE | 2017-02-27 17:00 | NUR ---
Seen by Dr. Walker. Pt complained that he has pain in his buttocks. He said his pain medications do not work. Dr. Walker reviewed pt's pain medications and said he does not want pt to get too much Acetaminophen. Dr. Walker ordered to apply Lidocaine patch on the lower back near the buttocks area. He discussed it with the pt. Addendum: 02/27/17 at 1743 by WINIFRED GARCÍA RN Pt just had wound treatment done. Dr. Walker explained that his pain is from his wounds.
[2017-02-27 19:57] VITALS: BP 101/65
[2017-02-27] MEDS: ENOXAPARIN SODIUM 40 MG/0.4 ML DISP.SYRIN SQ SCH (20:00)
[2017-02-27] MEDS: PROSOURCE / PROSTAT (PYXIS) 30 ML UDC GT SCH (21:06)
[2017-02-27] MEDS: POLYETHYLENE GLYCOL 3350 17 GM POWD.PACK GT SCH (21:06)
[2017-02-27] MEDS: CRANBERRY GT SCH (21:06)
[2017-02-27] MEDS: MULTIVIT, IRON, MIN NO. 8, FA 1 TAB GT SCH (21:06)
[2017-02-27] MEDS: ATORVASTATIN CALCIUM 20MG TABLET GT SCH (21:07)
[2017-02-28] MEDS: APAP GT PRN ×2 (04:01→12:18)
[2017-02-28] MEDS: OXYCODONE GT PRN ×2 (04:01→12:18)
[2017-02-28] MEDS: CHLORHEXIDINE GLUCONATE 15 ML UDC MM SCH ×2 (07:00→17:55)
[2017-02-28 07:37] VITALS: BP 106/67
[2017-02-28] MEDS: ACIDOPHILUS/BULGARICUS 1 EACH TAB.CHEW GT SCH ×3 (09:35→17:54)
[2017-02-28] MEDS: GABAPENTIN 300 MG CAPSULE GT SCH ×3 (09:35→17:55)
[2017-02-28] MEDS: FAMOTIDINE (20 MG) 20 MG TABLET GT SCH ×2 (09:35→21:08)
[2017-02-28] MEDS: ESCITALOPRAM OXALATE (10 MG) 10 MG TABLET GT SCH (09:35)
[2017-02-28] MEDS: BACLOFEN (10 MG) 10 MG TABLET GT SCH ×4 (09:35→21:07)
[2017-02-28] MEDS: METOPROLOL TARTRATE 25 MG TABLET GT SCH ×2 (09:35→17:55)
[2017-02-28] MEDS: CLOPIDOGREL BISULFATE 75 MG TABLET PO SCH (09:36)
[2017-02-28] MEDS: ASCORBIC ACID 500 MG TABLET GT SCH ×2 (09:36→17:55)
[2017-02-28] MEDS: CALCIUM CARBONATE 500 MG TAB.CHEW GT SCH ×3 (09:36→17:55)
[2017-02-28] MEDS: CALCITRIOL 0.25 MCG CAPSULE PO SCH (09:36)
[2017-02-28] MEDS: HYDROCODONE/APAP 10/325MG 1 EA TABLET GT SCH ×2 (10:00→21:07)
[2017-02-28] MEDS: NEOMY SULF/BACITRAC ZN/POLY 15 GM TUBE TP SCH (11:00)
[2017-02-28] MEDS: VENELEX OINTMENT TP SCH ×6 (11:00→21:08)
[2017-02-28] MEDS: HYDROGEN PEROXIDE 480 ML BOTTLE TP SCH ×2 (11:00→21:08)
[2017-02-28] MEDS: MINERAL OIL/PETROL OINT 396 GM JAR TP SCH ×2 (11:00→21:08)
[2017-02-28] MEDS ORDERED: LIDOCAINE 5% (PATCH) 1 EA PATCH TP SCH (17:00)
[2017-02-28 19:57] VITALS: BP 122/71
[2017-02-28] MEDS: ENOXAPARIN SODIUM 40 MG/0.4 ML DISP.SYRIN SQ SCH (20:59)
[2017-02-28] MEDS: CRANBERRY GT SCH (21:07)
[2017-02-28] MEDS: POLYETHYLENE GLYCOL 3350 17 GM POWD.PACK GT SCH (21:07)
[2017-02-28] MEDS: MULTIVIT, IRON, MIN NO. 8, FA 1 TAB GT SCH (21:08)
[2017-02-28] MEDS: ATORVASTATIN CALCIUM 20MG TABLET GT SCH (21:08)
[2017-02-28] MEDS: PROSOURCE / PROSTAT (PYXIS) 30 ML UDC GT SCH (21:08)
[2017-03-01] MEDS: CHLORHEXIDINE GLUCONATE 15 ML UDC MM SCH ×2 (06:43→17:07)
[2017-03-01 07:51] VITALS: BP 126/59
[2017-03-01] MEDS: HYDROCODONE/APAP 10/325MG 1 EA TABLET GT SCH ×2 (08:33→21:27)
[2017-03-01] MEDS: ESCITALOPRAM OXALATE (10 MG) 10 MG TABLET GT SCH (08:39)
[2017-03-01] MEDS: ACIDOPHILUS/BULGARICUS 1 EACH TAB.CHEW GT SCH ×3 (08:39→17:07)
[2017-03-01] MEDS: BACLOFEN (10 MG) 10 MG TABLET GT SCH ×4 (08:39→21:27)
[2017-03-01] MEDS: ASCORBIC ACID 500 MG TABLET GT SCH ×2 (08:41→17:07)
[2017-03-01] MEDS: FAMOTIDINE (20 MG) 20 MG TABLET GT SCH ×2 (08:41→21:27)
[2017-03-01] MEDS: GABAPENTIN 300 MG CAPSULE GT SCH ×3 (08:41→17:07)
[2017-03-01] MEDS: CALCIUM CARBONATE 500 MG TAB.CHEW GT SCH ×3 (08:41→17:07)
[2017-03-01] MEDS: CLOPIDOGREL BISULFATE 75 MG TABLET PO SCH (08:42)
[2017-03-01] MEDS: CALCITRIOL 0.25 MCG CAPSULE PO SCH (08:42)
[2017-03-01] MEDS: METOPROLOL TARTRATE 25 MG TABLET GT SCH ×2 (08:44→17:07)
[2017-03-01] MEDS: HYDROGEN PEROXIDE 480 ML BOTTLE TP SCH ×2 (09:00→22:00)
[2017-03-01] MEDS: MINERAL OIL/PETROL OINT 396 GM JAR TP SCH ×2 (09:30→21:27)
[2017-03-01] MEDS: VENELEX OINTMENT TP SCH ×6 (09:33→22:00)
[2017-03-01] MEDS: NEOMY SULF/BACITRAC ZN/POLY 15 GM TUBE TP SCH (09:33)
[2017-03-01] MEDS ORDERED: LIDOCAINE 5% (PATCH) 1 EA PATCH TP SCH (13:00)
[2017-03-01] MEDS: APAP GT PRN (13:15)
[2017-03-01] MEDS: OXYCODONE GT PRN (13:15)
[2017-03-01 19:48] VITALS: BP 109/66
[2017-03-01] MEDS: ENOXAPARIN SODIUM 40 MG/0.4 ML DISP.SYRIN SQ SCH (21:00)
[2017-03-01] MEDS: MULTIVIT, IRON, MIN NO. 8, FA 1 TAB GT SCH (21:27)
[2017-03-01] MEDS: CRANBERRY GT SCH (21:27)
[2017-03-01] MEDS: POLYETHYLENE GLYCOL 3350 17 GM POWD.PACK GT SCH (21:27)
[2017-03-01] MEDS: PROSOURCE / PROSTAT (PYXIS) 30 ML UDC GT SCH (21:27)
[2017-03-01] MEDS: ATORVASTATIN CALCIUM 20MG TABLET GT SCH (21:28)
[2017-03-01] MEDS: MAGNESIUM HYDROXIDE 30 ML UDC GT PRN (23:49)
[2017-03-01] MEDS: METHOCARBAMOL (750MG) 750 MG TABLET GT PRN (23:50)
[2017-03-02] MEDS: OXYCODONE GT PRN (03:52)
[2017-03-02] MEDS: APAP GT PRN (03:52)
[2017-03-02] MEDS: CHLORHEXIDINE GLUCONATE 15 ML UDC MM SCH ×2 (07:00→17:50)
[2017-03-02 07:59] VITALS: BP 127/65
[2017-03-02] MEDS: METOPROLOL TARTRATE 25 MG TABLET GT SCH ×2 (09:36→17:50)
[2017-03-02] MEDS: ACIDOPHILUS/BULGARICUS 1 EACH TAB.CHEW GT SCH ×3 (09:36→17:49)
[2017-03-02] MEDS: GABAPENTIN 300 MG CAPSULE GT SCH ×3 (09:36→17:50)
[2017-03-02] MEDS: BACLOFEN (10 MG) 10 MG TABLET GT SCH ×4 (09:36→21:20)
[2017-03-02] MEDS: ESCITALOPRAM OXALATE (10 MG) 10 MG TABLET GT SCH (09:36)
[2017-03-02] MEDS: CLOPIDOGREL BISULFATE 75 MG TABLET PO SCH (09:37)
[2017-03-02] MEDS: CALCITRIOL 0.25 MCG CAPSULE PO SCH (09:37)
[2017-03-02] MEDS: ASCORBIC ACID 500 MG TABLET GT SCH ×2 (09:37→17:50)
[2017-03-02] MEDS: HYDROCODONE/APAP 10/325MG 1 EA TABLET GT SCH ×2 (09:37→21:40)
[2017-03-02] MEDS: CALCIUM CARBONATE 500 MG TAB.CHEW GT SCH ×3 (09:37→17:50)
[2017-03-02] MEDS: FAMOTIDINE (20 MG) 20 MG TABLET GT SCH ×2 (09:37→21:20)
[2017-03-02] MEDS: NEOMY SULF/BACITRAC ZN/POLY 15 GM TUBE TP SCH (10:00)
[2017-03-02] MEDS: MINERAL OIL/PETROL OINT 396 GM JAR TP SCH ×2 (10:00→21:20)
[2017-03-02] MEDS: HYDROGEN PEROXIDE 480 ML BOTTLE TP SCH ×2 (10:00→22:30)
[2017-03-02] MEDS: VENELEX OINTMENT TP SCH ×6 (10:00→22:30)
[2017-03-02] MEDS: ALDARA TP SCH (11:26)
--- NOTE | 2017-03-02 11:37 | NUR ---
Sw visited with the resident and assisted him in sending an email to his friend. Resident was in a good mood. SW played some music for him and spoke with resident. Resident appreciative that the social media marketer visited with him.
--- NOTE | 2017-03-02 11:47 | NUR ---
Called Dr. Gonzalez's office in [place] to remind him of routine trach tube change. Left message with Magda.
[2017-03-02 19:18] VITALS: BP 111/77
[2017-03-02] MEDS: ENOXAPARIN SODIUM 40 MG/0.4 ML DISP.SYRIN SQ SCH (20:00)
[2017-03-02] MEDS: ATORVASTATIN CALCIUM 20MG TABLET GT SCH (21:20)
[2017-03-02] MEDS: CRANBERRY GT SCH (21:20)
[2017-03-02] MEDS: PROSOURCE / PROSTAT (PYXIS) 30 ML UDC GT SCH (21:20)
[2017-03-02] MEDS: POLYETHYLENE GLYCOL 3350 17 GM POWD.PACK GT SCH (21:20)
[2017-03-02] MEDS: LIDOCAINE 5% (PATCH) 1 EA PATCH TP SCH (21:20)
[2017-03-02] MEDS: MULTIVIT, IRON, MIN NO. 8, FA 1 TAB GT SCH (21:20)
[2017-03-02] MEDS: Z GUARD REMEDY 4 OZ OINT TP SCH ×2 (22:30)
[2017-03-03] MEDS: APAP GT PRN ×2 (05:22→18:15)
[2017-03-03] MEDS: OXYCODONE GT PRN ×2 (05:22→18:15)
[2017-03-03] MEDS: CHLORHEXIDINE GLUCONATE 15 ML UDC MM SCH ×2 (07:00→17:46)
[2017-03-03 07:55] VITALS: BP 124/73
[2017-03-03] MEDS: ACIDOPHILUS/BULGARICUS 1 EACH TAB.CHEW GT SCH ×3 (09:11→17:45)
[2017-03-03] MEDS: BACLOFEN (10 MG) 10 MG TABLET GT SCH ×4 (09:11→21:21)
[2017-03-03] MEDS: METOPROLOL TARTRATE 25 MG TABLET GT SCH ×2 (09:11→17:46)
[2017-03-03] MEDS: ESCITALOPRAM OXALATE (10 MG) 10 MG TABLET GT SCH (09:11)
[2017-03-03] MEDS: GABAPENTIN 300 MG CAPSULE GT SCH ×3 (09:11→17:46)
[2017-03-03] MEDS: HYDROCODONE/APAP 10/325MG 1 EA TABLET GT SCH ×2 (09:12→22:00)
[2017-03-03] MEDS: CALCITRIOL 0.25 MCG CAPSULE PO SCH (09:12)
[2017-03-03] MEDS: CLOPIDOGREL BISULFATE 75 MG TABLET PO SCH (09:12)
[2017-03-03] MEDS: FAMOTIDINE (20 MG) 20 MG TABLET GT SCH ×2 (09:12→21:21)
[2017-03-03] MEDS: ASCORBIC ACID 500 MG TABLET GT SCH ×2 (09:12→17:46)
[2017-03-03] MEDS: CALCIUM CARBONATE 500 MG TAB.CHEW GT SCH ×3 (09:12→17:46)
--- NOTE | 2017-03-03 09:30 | NUR ---
Left a message to Madison from Dr. Gonzalez's office reminding him of monthly trach change. She will relay message.
[2017-03-03] MEDS: MINERAL OIL/PETROL OINT 396 GM JAR TP SCH ×2 (09:52→22:00)
[2017-03-03] MEDS: NEOMY SULF/BACITRAC ZN/POLY 15 GM TUBE TP SCH (09:52)
[2017-03-03] MEDS: HYDROGEN PEROXIDE 480 ML BOTTLE TP SCH ×2 (09:52→22:30)
[2017-03-03] MEDS: VENELEX OINTMENT TP SCH ×6 (09:53→22:30)
[2017-03-03] MEDS: Z GUARD REMEDY 4 OZ OINT TP SCH ×4 (09:53→22:30)
--- NOTE | 2017-03-03 10:39 | NUR ---
WOUND CARE CONSULT: PT FOLLOWED BY SURGICAL TEAM FOR SACRAL/BUTTOCKS AREA. DEFER TO SURGICAL TEAM FOR WOUND TREATMENT PLAN.
--- NOTE | 2017-03-03 11:30 | NUR ---
Referred to Dr. Floyd Torres the re-opened sacral wound treatment because the surrounding periwound excoriation is open measuring 4x2.5. 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 Dr. Torres in agreement and would like to continue current treatment of Venelex to this site.
--- NOTE | 2017-03-03 18:00 | NUR ---
Dr. Gonzalez ENT returned the call, stated he ma see and trach change this weekend. Endorsed.
[2017-03-03] MEDS: MAGNESIUM HYDROXIDE 30 ML UDC GT PRN (18:15)
[2017-03-03] MEDS: ENOXAPARIN SODIUM 40 MG/0.4 ML DISP.SYRIN SQ SCH (20:00)
[2017-03-03 20:21] VITALS: BP 133/71
[2017-03-03] MEDS: PROSOURCE / PROSTAT (PYXIS) 30 ML UDC GT SCH (21:21)
[2017-03-03] MEDS: CRANBERRY GT SCH (21:21)
[2017-03-03] MEDS: MULTIVIT, IRON, MIN NO. 8, FA 1 TAB GT SCH (21:21)
[2017-03-03] MEDS: POLYETHYLENE GLYCOL 3350 17 GM POWD.PACK GT SCH (21:21)
[2017-03-03] MEDS: ATORVASTATIN CALCIUM 20MG TABLET GT SCH (21:22)
[2017-03-03] MEDS: LIDOCAINE 5% (PATCH) 1 EA PATCH TP SCH (21:30)
[2017-03-04] MEDS: APAP GT PRN (00:45)
[2017-03-04] MEDS: OXYCODONE GT PRN (00:45)
[2017-03-04] MEDS: METHOCARBAMOL (750MG) 750 MG TABLET GT PRN (03:00)
[2017-03-04] MEDS: CHLORHEXIDINE GLUCONATE 15 ML UDC MM SCH ×2 (07:00→17:00)
[2017-03-04 08:01] VITALS: BP 114/58
[2017-03-04] MEDS: GABAPENTIN 300 MG CAPSULE GT SCH ×3 (09:36→17:00)
[2017-03-04] MEDS: CALCIUM CARBONATE 500 MG TAB.CHEW GT SCH ×3 (09:36→17:00)
[2017-03-04] MEDS: BACLOFEN (10 MG) 10 MG TABLET GT SCH ×4 (09:36→21:25)
[2017-03-04] MEDS: FAMOTIDINE (20 MG) 20 MG TABLET GT SCH ×2 (09:36→21:26)
[2017-03-04] MEDS: ACIDOPHILUS/BULGARICUS 1 EACH TAB.CHEW GT SCH ×3 (09:36→17:00)
[2017-03-04] MEDS: HYDROCODONE/APAP 10/325MG 1 EA TABLET GT SCH ×2 (09:36→21:26)
[2017-03-04] MEDS: ESCITALOPRAM OXALATE (10 MG) 10 MG TABLET GT SCH (09:36)
[2017-03-04] MEDS: METOPROLOL TARTRATE 25 MG TABLET GT SCH ×2 (09:36→17:00)
[2017-03-04] MEDS: CLOPIDOGREL BISULFATE 75 MG TABLET PO SCH (09:37)
[2017-03-04] MEDS: ASCORBIC ACID 500 MG TABLET GT SCH ×2 (09:37→17:00)
[2017-03-04] MEDS: CALCITRIOL 0.25 MCG CAPSULE PO SCH (09:37)
[2017-03-04] MEDS: Z GUARD REMEDY 4 OZ OINT TP SCH ×4 (10:00→21:27)
[2017-03-04] MEDS: VENELEX OINTMENT TP SCH ×6 (10:00→21:27)
[2017-03-04] MEDS: HYDROGEN PEROXIDE 480 ML BOTTLE TP SCH ×2 (10:00→21:26)
[2017-03-04] MEDS: NEOMY SULF/BACITRAC ZN/POLY 15 GM TUBE TP SCH (10:00)
[2017-03-04] MEDS: MINERAL OIL/PETROL OINT 396 GM JAR TP SCH ×2 (10:00→21:26)
[2017-03-04] MEDS ORDERED: HYDROGEL DRESSING 90 GM TUBE TP PRN (11:00)
[2017-03-04] MEDS: ENOXAPARIN SODIUM 40 MG/0.4 ML DISP.SYRIN SQ SCH (20:00)
[2017-03-04 20:12] VITALS: BP 99/54
[2017-03-04] MEDS: LIDOCAINE 5% (PATCH) 1 EA PATCH TP SCH (21:00)
[2017-03-04] MEDS: CRANBERRY GT SCH (21:25)
[2017-03-04] MEDS: POLYETHYLENE GLYCOL 3350 17 GM POWD.PACK GT SCH (21:25)
[2017-03-04] MEDS: HYDROGEL DRESSING 90 GM TUBE TP SCH (21:26)
[2017-03-04] MEDS: PROSOURCE / PROSTAT (PYXIS) 30 ML UDC GT SCH (21:26)
[2017-03-04] MEDS: MULTIVIT, IRON, MIN NO. 8, FA 1 TAB GT SCH (21:26)
[2017-03-04] MEDS: ATORVASTATIN CALCIUM 20MG TABLET GT SCH (21:27)
[2017-03-05] MEDS: APAP GT PRN ×2 (01:40→18:30)
[2017-03-05] MEDS: OXYCODONE GT PRN ×2 (01:40→18:30)
[2017-03-05] MEDS: CHLORHEXIDINE GLUCONATE 15 ML UDC MM SCH ×2 (07:08→17:00)
[2017-03-05 07:32] VITALS: BP 126/62
[2017-03-05] MEDS: FAMOTIDINE (20 MG) 20 MG TABLET GT SCH ×2 (09:00→21:13)
[2017-03-05] MEDS: BACLOFEN (10 MG) 10 MG TABLET GT SCH ×4 (09:00→21:12)
[2017-03-05] MEDS: GABAPENTIN 300 MG CAPSULE GT SCH ×3 (09:00→17:00)
[2017-03-05] MEDS: CLOPIDOGREL BISULFATE 75 MG TABLET PO SCH (09:00)
[2017-03-05] MEDS: METOPROLOL TARTRATE 25 MG TABLET GT SCH ×2 (09:00→17:00)
[2017-03-05] MEDS: ESCITALOPRAM OXALATE (10 MG) 10 MG TABLET GT SCH (09:00)
[2017-03-05] MEDS: ASCORBIC ACID 500 MG TABLET GT SCH ×2 (09:00→17:00)
[2017-03-05] MEDS: CALCIUM CARBONATE 500 MG TAB.CHEW GT SCH ×3 (09:00→17:00)
[2017-03-05] MEDS: ACIDOPHILUS/BULGARICUS 1 EACH TAB.CHEW GT SCH ×3 (09:00→17:00)
[2017-03-05] MEDS: MINERAL OIL/PETROL OINT 396 GM JAR TP SCH ×2 (09:00→21:13)
[2017-03-05] MEDS: CALCITRIOL 0.25 MCG CAPSULE PO SCH (09:00)
[2017-03-05] MEDS: VENELEX OINTMENT TP SCH ×6 (11:30→21:13)
[2017-03-05] MEDS: Z GUARD REMEDY 4 OZ OINT TP SCH ×4 (11:30→21:14)
[2017-03-05] MEDS: HYDROGEL DRESSING 90 GM TUBE TP SCH ×2 (11:30→21:13)
[2017-03-05] MEDS: HYDROGEN PEROXIDE 480 ML BOTTLE TP SCH ×2 (11:30→21:13)
[2017-03-05] MEDS: NEOMY SULF/BACITRAC ZN/POLY 15 GM TUBE TP SCH (11:30)
[2017-03-05] MEDS: HYDROCODONE/APAP 10/325MG 1 EA TABLET GT SCH ×2 (12:20→21:13)
[2017-03-05] MEDS: ENOXAPARIN SODIUM 40 MG/0.4 ML DISP.SYRIN SQ SCH (20:00)
[2017-03-05 20:06] VITALS: BP 94/64
[2017-03-05] MEDS: POLYETHYLENE GLYCOL 3350 17 GM POWD.PACK GT SCH (21:12)
[2017-03-05] MEDS: CRANBERRY GT SCH (21:12)
[2017-03-05] MEDS: LIDOCAINE 5% (PATCH) 1 EA PATCH TP SCH (21:13)
[2017-03-05] MEDS: PROSOURCE / PROSTAT (PYXIS) 30 ML UDC GT SCH (21:13)
[2017-03-05] MEDS: MULTIVIT, IRON, MIN NO. 8, FA 1 TAB GT SCH (21:13)
[2017-03-05] MEDS: ATORVASTATIN CALCIUM 20MG TABLET GT SCH (21:14)
[2017-03-06] MEDS: CHLORHEXIDINE GLUCONATE 15 ML UDC MM SCH ×2 (07:00→16:58)
[2017-03-06 07:48] VITALS: BP 104/65
[2017-03-06] MEDS: BACLOFEN (10 MG) 10 MG TABLET GT SCH ×4 (09:15→21:06)
[2017-03-06] MEDS: ESCITALOPRAM OXALATE (10 MG) 10 MG TABLET GT SCH (09:15)
[2017-03-06] MEDS: ACIDOPHILUS/BULGARICUS 1 EACH TAB.CHEW GT SCH ×3 (09:15→16:57)
[2017-03-06] MEDS: ASCORBIC ACID 500 MG TABLET GT SCH ×2 (09:16→16:58)
[2017-03-06] MEDS: METOPROLOL TARTRATE 25 MG TABLET GT SCH ×2 (09:16→16:57)
[2017-03-06] MEDS: CLOPIDOGREL BISULFATE 75 MG TABLET PO SCH (09:16)
[2017-03-06] MEDS: FAMOTIDINE (20 MG) 20 MG TABLET GT SCH ×2 (09:16→21:07)
[2017-03-06] MEDS: APAP GT PRN ×2 (09:16→17:10)
[2017-03-06] MEDS: GABAPENTIN 300 MG CAPSULE GT SCH ×3 (09:16→16:58)
[2017-03-06] MEDS: OXYCODONE GT PRN ×2 (09:16→17:10)
[2017-03-06] MEDS: CALCIUM CARBONATE 500 MG TAB.CHEW GT SCH ×3 (09:16→16:58)
[2017-03-06] MEDS: CALCITRIOL 0.25 MCG CAPSULE PO SCH (09:16)
[2017-03-06] MEDS: ALDARA TP SCH (11:08)
[2017-03-06] MEDS: HYDROCODONE/APAP 10/325MG 1 EA TABLET GT SCH ×2 (13:57→21:07)
[2017-03-06] MEDS: MINERAL OIL/PETROL OINT 396 GM JAR TP SCH ×2 (15:00→21:07)
[2017-03-06] MEDS: VENELEX OINTMENT TP SCH ×6 (15:00→21:07)
[2017-03-06] MEDS: Z GUARD REMEDY 4 OZ OINT TP SCH ×4 (15:00→21:08)
[2017-03-06] MEDS: HYDROGEL DRESSING 90 GM TUBE TP SCH ×2 (15:00→21:07)
[2017-03-06] MEDS: NEOMY SULF/BACITRAC ZN/POLY 15 GM TUBE TP SCH (15:00)
[2017-03-06] MEDS: HYDROGEN PEROXIDE 480 ML BOTTLE TP SCH ×2 (15:00→21:07)
[2017-03-06 19:53] VITALS: BP 105/63
[2017-03-06] MEDS: POLYETHYLENE GLYCOL 3350 17 GM POWD.PACK GT SCH (21:06)
[2017-03-06] MEDS: CRANBERRY GT SCH (21:06)
[2017-03-06] MEDS: MULTIVIT, IRON, MIN NO. 8, FA 1 TAB GT SCH (21:07)
[2017-03-06] MEDS: LIDOCAINE 5% (PATCH) 1 EA PATCH TP SCH (21:07)
[2017-03-06] MEDS: PROSOURCE / PROSTAT (PYXIS) 30 ML UDC GT SCH (21:07)
[2017-03-06] MEDS: ATORVASTATIN CALCIUM 20MG TABLET GT SCH (21:08)
[2017-03-07] MEDS: CHLORHEXIDINE GLUCONATE 15 ML UDC MM SCH ×2 (07:00→17:41)
[2017-03-07 07:49] VITALS: BP 108/71
[2017-03-07] MEDS: BACLOFEN (10 MG) 10 MG TABLET GT SCH ×4 (09:44→21:09)
[2017-03-07] MEDS: ACIDOPHILUS/BULGARICUS 1 EACH TAB.CHEW GT SCH ×3 (09:44→17:40)
[2017-03-07] MEDS: ESCITALOPRAM OXALATE (10 MG) 10 MG TABLET GT SCH (09:44)
[2017-03-07] MEDS: METOPROLOL TARTRATE 25 MG TABLET GT SCH ×2 (09:45→17:41)
[2017-03-07] MEDS: FAMOTIDINE (20 MG) 20 MG TABLET GT SCH ×2 (09:45→21:09)
[2017-03-07] MEDS: GABAPENTIN 300 MG CAPSULE GT SCH ×3 (09:45→17:41)
[2017-03-07] MEDS: CLOPIDOGREL BISULFATE 75 MG TABLET PO SCH (09:46)
[2017-03-07] MEDS: CALCITRIOL 0.25 MCG CAPSULE PO SCH (09:46)
[2017-03-07] MEDS: ASCORBIC ACID 500 MG TABLET GT SCH ×2 (09:46→17:41)
[2017-03-07] MEDS: CALCIUM CARBONATE 500 MG TAB.CHEW GT SCH ×3 (09:46→17:41)
[2017-03-07] MEDS: HYDROCODONE/APAP 10/325MG 1 EA TABLET GT SCH ×2 (11:00→21:09)
[2017-03-07] MEDS: HYDROGEL DRESSING 90 GM TUBE TP SCH ×2 (12:00→21:10)
[2017-03-07] MEDS: Z GUARD REMEDY 4 OZ OINT TP SCH ×4 (12:00→21:11)
[2017-03-07] MEDS: HYDROGEN PEROXIDE 480 ML BOTTLE TP SCH ×2 (12:00→21:10)
[2017-03-07] MEDS: VENELEX OINTMENT TP SCH ×6 (12:00→21:10)
[2017-03-07] MEDS: MINERAL OIL/PETROL OINT 396 GM JAR TP SCH ×2 (12:00→21:10)
[2017-03-07] MEDS: NEOMY SULF/BACITRAC ZN/POLY 15 GM TUBE TP SCH (12:00)
[2017-03-07] MEDS ORDERED: ENOXAPARIN SODIUM 40 MG/0.4 ML DISP.SYRIN SQ SCH (16:16)
[2017-03-07 19:51] VITALS: BP 113/77
[2017-03-07] MEDS: PROSOURCE / PROSTAT (PYXIS) 30 ML UDC GT SCH (21:09)
[2017-03-07] MEDS: POLYETHYLENE GLYCOL 3350 17 GM POWD.PACK GT SCH (21:09)
[2017-03-07] MEDS: CRANBERRY GT SCH (21:09)
[2017-03-07] MEDS: MULTIVIT, IRON, MIN NO. 8, FA 1 TAB GT SCH (21:09)
[2017-03-07] MEDS: LIDOCAINE 5% (PATCH) 1 EA PATCH TP SCH (21:10)
[2017-03-07] MEDS: ENOXAPARIN SODIUM 40 MG/0.4 ML DISP.SYRIN SQ SCH (21:10)
[2017-03-07] MEDS: ATORVASTATIN CALCIUM 20MG TABLET GT SCH (21:11)
[2017-03-08] MEDS: CHLORHEXIDINE GLUCONATE 15 ML UDC MM SCH ×2 (07:00→17:59)
[2017-03-08 07:22] VITALS: BP 135/74
[2017-03-08] MEDS: ESCITALOPRAM OXALATE (10 MG) 10 MG TABLET GT SCH (08:58)
[2017-03-08] MEDS: ACIDOPHILUS/BULGARICUS 1 EACH TAB.CHEW GT SCH ×3 (08:58→17:55)
[2017-03-08] MEDS: BACLOFEN (10 MG) 10 MG TABLET GT SCH ×4 (08:58→21:22)
[2017-03-08] MEDS: HYDROGEL DRESSING 90 GM TUBE TP SCH ×2 (09:00→21:23)
[2017-03-08] MEDS: VENELEX OINTMENT TP SCH ×6 (09:00→21:24)
[2017-03-08] MEDS: METOPROLOL TARTRATE 25 MG TABLET GT SCH ×2 (09:05→17:55)
[2017-03-08] MEDS: GABAPENTIN 300 MG CAPSULE GT SCH ×3 (09:05→17:59)
[2017-03-08] MEDS: CALCIUM CARBONATE 500 MG TAB.CHEW GT SCH ×3 (09:06→17:59)
[2017-03-08] MEDS: CALCITRIOL 0.25 MCG CAPSULE PO SCH (09:06)
[2017-03-08] MEDS: CLOPIDOGREL BISULFATE 75 MG TABLET PO SCH (09:06)
[2017-03-08] MEDS: HYDROCODONE/APAP 10/325MG 1 EA TABLET GT SCH ×2 (09:06→21:23)
[2017-03-08] MEDS: ASCORBIC ACID 500 MG TABLET GT SCH ×2 (09:06→17:59)
[2017-03-08] MEDS: MINERAL OIL/PETROL OINT 396 GM JAR TP SCH ×2 (09:06→21:23)
[2017-03-08] MEDS: FAMOTIDINE (20 MG) 20 MG TABLET GT SCH ×2 (09:06→21:23)
[2017-03-08] MEDS: HYDROGEN PEROXIDE 480 ML BOTTLE TP SCH ×2 (09:07→21:23)
[2017-03-08] MEDS: NEOMY SULF/BACITRAC ZN/POLY 15 GM TUBE TP SCH (09:08)
[2017-03-08] MEDS: Z GUARD REMEDY 4 OZ OINT TP SCH ×4 (09:08→21:24)
--- NOTE | 2017-03-08 11:46 | NUR ---
Seen and examined by Dr. Walker, NNO given.
[2017-03-08 20:12] VITALS: BP 105/59
[2017-03-08] MEDS: POLYETHYLENE GLYCOL 3350 17 GM POWD.PACK GT SCH (21:22)
[2017-03-08] MEDS: CRANBERRY GT SCH (21:22)
[2017-03-08] MEDS: LIDOCAINE 5% (PATCH) 1 EA PATCH TP SCH (21:23)
[2017-03-08] MEDS: MULTIVIT, IRON, MIN NO. 8, FA 1 TAB GT SCH (21:23)
[2017-03-08] MEDS: PROSOURCE / PROSTAT (PYXIS) 30 ML UDC GT SCH (21:23)
[2017-03-08] MEDS: ENOXAPARIN SODIUM 40 MG/0.4 ML DISP.SYRIN SQ SCH (21:23)
[2017-03-08] MEDS: ATORVASTATIN CALCIUM 20MG TABLET GT SCH (21:24)
[2017-03-09] MEDS: CHLORHEXIDINE GLUCONATE 15 ML UDC MM SCH ×2 (07:00→17:00)
[2017-03-09 07:52] VITALS: BP 139/79
[2017-03-09] MEDS: BACLOFEN (10 MG) 10 MG TABLET GT SCH ×4 (09:24→20:42)
[2017-03-09] MEDS: ESCITALOPRAM OXALATE (10 MG) 10 MG TABLET GT SCH (09:24)
[2017-03-09] MEDS: ACIDOPHILUS/BULGARICUS 1 EACH TAB.CHEW GT SCH ×3 (09:24→17:00)
[2017-03-09] MEDS: CALCITRIOL 0.25 MCG CAPSULE PO SCH (09:25)
[2017-03-09] MEDS: HYDROCODONE/APAP 10/325MG 1 EA TABLET GT SCH ×2 (09:25→20:43)
[2017-03-09] MEDS: CLOPIDOGREL BISULFATE 75 MG TABLET PO SCH (09:25)
[2017-03-09] MEDS: METOPROLOL TARTRATE 25 MG TABLET GT SCH ×2 (09:25→17:00)
[2017-03-09] MEDS: CALCIUM CARBONATE 500 MG TAB.CHEW GT SCH ×3 (09:25→17:00)
[2017-03-09] MEDS: GABAPENTIN 300 MG CAPSULE GT SCH ×3 (09:25→17:00)
[2017-03-09] MEDS: ASCORBIC ACID 500 MG TABLET GT SCH ×2 (09:25→17:00)
[2017-03-09] MEDS: FAMOTIDINE (20 MG) 20 MG TABLET GT SCH ×2 (09:25→20:43)
[2017-03-09] MEDS: HYDROGEN PEROXIDE 480 ML BOTTLE TP SCH ×2 (09:55→20:43)
[2017-03-09] MEDS: Z GUARD REMEDY 4 OZ OINT TP SCH ×4 (09:55→20:44)
[2017-03-09] MEDS: HYDROGEL DRESSING 90 GM TUBE TP SCH ×2 (09:55→20:43)
[2017-03-09] MEDS: MINERAL OIL/PETROL OINT 396 GM JAR TP SCH ×2 (09:55→20:43)
[2017-03-09] MEDS: VENELEX OINTMENT TP SCH ×6 (09:55→20:44)
[2017-03-09] MEDS: NEOMY SULF/BACITRAC ZN/POLY 15 GM TUBE TP SCH ×2 (09:55)
[2017-03-09 19:53] VITALS: BP 105/65
[2017-03-09] MEDS: POLYETHYLENE GLYCOL 3350 17 GM POWD.PACK GT SCH (20:42)
[2017-03-09] MEDS: CRANBERRY GT SCH (20:42)
[2017-03-09] MEDS: MULTIVIT, IRON, MIN NO. 8, FA 1 TAB GT SCH (20:43)
[2017-03-09] MEDS: PROSOURCE / PROSTAT (PYXIS) 30 ML UDC GT SCH (20:43)
[2017-03-09] MEDS: ENOXAPARIN SODIUM 40 MG/0.4 ML DISP.SYRIN SQ SCH (20:43)
[2017-03-09] MEDS: LIDOCAINE 5% (PATCH) 1 EA PATCH TP SCH (20:43)
[2017-03-09] MEDS: MAGNESIUM HYDROXIDE 30 ML UDC GT PRN (20:44)
[2017-03-09] MEDS: ATORVASTATIN CALCIUM 20MG TABLET GT SCH (21:02)
[2017-03-10] MEDS: CHLORHEXIDINE GLUCONATE 15 ML UDC MM SCH ×2 (07:00→17:57)
[2017-03-10] MEDS: CALCIUM CARBONATE 500 MG TAB.CHEW GT SCH ×3 (09:32→17:56)
[2017-03-10] MEDS: HYDROCODONE/APAP 10/325MG 1 EA TABLET GT SCH ×2 (09:32→20:39)
[2017-03-10] MEDS: ESCITALOPRAM OXALATE (10 MG) 10 MG TABLET GT SCH (09:32)
[2017-03-10] MEDS: CLOPIDOGREL BISULFATE 75 MG TABLET PO SCH (09:32)
[2017-03-10] MEDS: GABAPENTIN 300 MG CAPSULE GT SCH ×3 (09:32→17:56)
[2017-03-10] MEDS: METOPROLOL TARTRATE 25 MG TABLET GT SCH ×2 (09:32→17:56)
[2017-03-10] MEDS: FAMOTIDINE (20 MG) 20 MG TABLET GT SCH ×2 (09:32→20:39)
[2017-03-10] MEDS: BACLOFEN (10 MG) 10 MG TABLET GT SCH ×4 (09:32→20:38)
[2017-03-10] MEDS: ASCORBIC ACID 500 MG TABLET GT SCH ×2 (09:32→17:56)
[2017-03-10] MEDS: CALCITRIOL 0.25 MCG CAPSULE PO SCH (09:32)
[2017-03-10] MEDS: ACIDOPHILUS/BULGARICUS 1 EACH TAB.CHEW GT SCH ×3 (09:32→17:56)
[2017-03-10] MEDS: HYDROGEL DRESSING 90 GM TUBE TP SCH ×2 (10:00→20:39)
[2017-03-10] MEDS: Z GUARD REMEDY 4 OZ OINT TP SCH ×4 (10:00→20:40)
[2017-03-10] MEDS: HYDROGEN PEROXIDE 480 ML BOTTLE TP SCH ×2 (10:00→20:39)
[2017-03-10] MEDS: VENELEX OINTMENT TP SCH ×6 (10:00→20:40)
[2017-03-10] MEDS: MINERAL OIL/PETROL OINT 396 GM JAR TP SCH ×2 (10:00→20:39)
[2017-03-10] MEDS: NEOMY SULF/BACITRAC ZN/POLY 15 GM TUBE TP SCH (10:00)
[2017-03-10 18:50] VITALS: BP 120/73
[2017-03-10 20:06] VITALS: BP 104/56
[2017-03-10] MEDS: CRANBERRY GT SCH (20:38)
[2017-03-10] MEDS: POLYETHYLENE GLYCOL 3350 17 GM POWD.PACK GT SCH (20:38)
[2017-03-10] MEDS: LIDOCAINE 5% (PATCH) 1 EA PATCH TP SCH (20:39)
[2017-03-10] MEDS: PROSOURCE / PROSTAT (PYXIS) 30 ML UDC GT SCH (20:39)
[2017-03-10] MEDS: MULTIVIT, IRON, MIN NO. 8, FA 1 TAB GT SCH (20:39)
[2017-03-10] MEDS: ENOXAPARIN SODIUM 40 MG/0.4 ML DISP.SYRIN SQ SCH (20:39)
[2017-03-10] MEDS: MAGNESIUM HYDROXIDE 30 ML UDC GT PRN (20:40)
[2017-03-10] MEDS: ATORVASTATIN CALCIUM 20MG TABLET GT SCH (21:04)
[2017-03-11] MEDS: METHOCARBAMOL (750MG) 750 MG TABLET GT PRN (03:24)
[2017-03-11] MEDS: ACETAMINOPHEN 650 MG/20 ML UDC- FOR SA PATIENTS ONLY GT PRN ×2 (03:24→18:16)
[2017-03-11] MEDS: CHLORHEXIDINE GLUCONATE 15 ML UDC MM SCH ×2 (07:00→17:00)
[2017-03-11] MEDS: ESCITALOPRAM OXALATE (10 MG) 10 MG TABLET GT SCH (08:24)
[2017-03-11] MEDS: ACIDOPHILUS/BULGARICUS 1 EACH TAB.CHEW GT SCH ×3 (08:24→17:00)
[2017-03-11] MEDS: GABAPENTIN 300 MG CAPSULE GT SCH ×3 (08:24→17:00)
[2017-03-11] MEDS: METOPROLOL TARTRATE 25 MG TABLET GT SCH ×2 (08:24→17:00)
[2017-03-11] MEDS: BACLOFEN (10 MG) 10 MG TABLET GT SCH ×4 (08:24→20:34)
[2017-03-11] MEDS: FAMOTIDINE (20 MG) 20 MG TABLET GT SCH ×2 (08:25→20:35)
[2017-03-11] MEDS: ASCORBIC ACID 500 MG TABLET GT SCH ×2 (08:25→17:00)
[2017-03-11] MEDS: CALCIUM CARBONATE 500 MG TAB.CHEW GT SCH ×3 (08:25→17:00)
[2017-03-11] MEDS: HYDROCODONE/APAP 10/325MG 1 EA TABLET GT SCH ×2 (08:25→20:35)
[2017-03-11] MEDS: CLOPIDOGREL BISULFATE 75 MG TABLET PO SCH (08:25)
[2017-03-11] MEDS: CALCITRIOL 0.25 MCG CAPSULE PO SCH (08:25)
[2017-03-11] MEDS: Z GUARD REMEDY 4 OZ OINT TP SCH ×4 (09:00→20:36)
[2017-03-11] MEDS: NEOMY SULF/BACITRAC ZN/POLY 15 GM TUBE TP SCH (09:00)
[2017-03-11] MEDS: HYDROGEN PEROXIDE 480 ML BOTTLE TP SCH ×2 (09:00→20:36)
[2017-03-11] MEDS: HYDROGEL DRESSING 90 GM TUBE TP SCH ×2 (09:00→20:36)
[2017-03-11] MEDS: MINERAL OIL/PETROL OINT 396 GM JAR TP SCH ×2 (09:00→20:36)
[2017-03-11] MEDS: VENELEX OINTMENT TP SCH ×6 (09:00→20:36)
[2017-03-11 20:05] VITALS: BP 100/65
[2017-03-11] MEDS: POLYETHYLENE GLYCOL 3350 17 GM POWD.PACK GT SCH (20:34)
[2017-03-11] MEDS: CRANBERRY GT SCH (20:34)
[2017-03-11] MEDS: PROSOURCE / PROSTAT (PYXIS) 30 ML UDC GT SCH (20:35)
[2017-03-11] MEDS: MULTIVIT, IRON, MIN NO. 8, FA 1 TAB GT SCH (20:35)
[2017-03-11] MEDS: LIDOCAINE 5% (PATCH) 1 EA PATCH TP SCH (20:36)
[2017-03-11] MEDS: ENOXAPARIN SODIUM 40 MG/0.4 ML DISP.SYRIN SQ SCH (20:36)
[2017-03-11] MEDS: ATORVASTATIN CALCIUM 20MG TABLET GT SCH (21:14)
[2017-03-12] MEDS: CHLORHEXIDINE GLUCONATE 15 ML UDC MM SCH ×2 (07:00→17:40)
[2017-03-12] MEDS: MINERAL OIL/PETROL OINT 396 GM JAR TP SCH ×2 (09:00→21:33)
[2017-03-12] MEDS: Z GUARD REMEDY 4 OZ OINT TP SCH ×4 (09:00→21:34)
[2017-03-12] MEDS: VENELEX OINTMENT TP SCH ×6 (09:00→21:34)
[2017-03-12] MEDS: HYDROGEL DRESSING 90 GM TUBE TP SCH ×2 (09:00→21:33)
[2017-03-12] MEDS: HYDROGEN PEROXIDE 480 ML BOTTLE TP SCH ×2 (09:00→21:33)
[2017-03-12] MEDS: NEOMY SULF/BACITRAC ZN/POLY 15 GM TUBE TP SCH (09:00)
[2017-03-12] MEDS: BACLOFEN (10 MG) 10 MG TABLET GT SCH ×4 (09:47→21:33)
[2017-03-12] MEDS: METOPROLOL TARTRATE 25 MG TABLET GT SCH ×2 (09:47→17:39)
[2017-03-12] MEDS: ACIDOPHILUS/BULGARICUS 1 EACH TAB.CHEW GT SCH ×3 (09:47→17:39)
[2017-03-12] MEDS: ESCITALOPRAM OXALATE (10 MG) 10 MG TABLET GT SCH (09:47)
[2017-03-12] MEDS: GABAPENTIN 300 MG CAPSULE GT SCH ×3 (09:47→17:39)
[2017-03-12] MEDS: HYDROCODONE/APAP 10/325MG 1 EA TABLET GT SCH ×2 (09:47→21:33)
[2017-03-12] MEDS: CALCIUM CARBONATE 500 MG TAB.CHEW GT SCH ×3 (09:48→17:40)
[2017-03-12] MEDS: ASCORBIC ACID 500 MG TABLET GT SCH ×2 (09:48→17:40)
[2017-03-12] MEDS: CALCITRIOL 0.25 MCG CAPSULE PO SCH (09:48)
[2017-03-12] MEDS: CLOPIDOGREL BISULFATE 75 MG TABLET PO SCH (09:48)
[2017-03-12] MEDS: FAMOTIDINE (20 MG) 20 MG TABLET GT SCH ×2 (09:48→21:33)
[2017-03-12 20:13] VITALS: BP 109/64
[2017-03-12] MEDS: LIDOCAINE 5% (PATCH) 1 EA PATCH TP SCH (21:00)
[2017-03-12] MEDS: PROSOURCE / PROSTAT (PYXIS) 30 ML UDC GT SCH (21:33)
[2017-03-12] MEDS: MULTIVIT, IRON, MIN NO. 8, FA 1 TAB GT SCH (21:33)
[2017-03-12] MEDS: POLYETHYLENE GLYCOL 3350 17 GM POWD.PACK GT SCH (21:33)
[2017-03-12] MEDS: ENOXAPARIN SODIUM 40 MG/0.4 ML DISP.SYRIN SQ SCH (21:33)
[2017-03-12] MEDS: CRANBERRY GT SCH (21:33)
[2017-03-12] MEDS: ATORVASTATIN CALCIUM 20MG TABLET GT SCH (21:34)
[2017-03-12] MEDS: APAP GT PRN (23:47)
[2017-03-12] MEDS: OXYCODONE GT PRN (23:47)
[2017-03-13] MEDS: CHLORHEXIDINE GLUCONATE 15 ML UDC MM SCH ×2 (07:00→17:00)
[2017-03-13] MEDS: ESCITALOPRAM OXALATE (10 MG) 10 MG TABLET GT SCH (09:00)
[2017-03-13] MEDS: CALCITRIOL 0.25 MCG CAPSULE PO SCH (09:00)
[2017-03-13] MEDS: CALCIUM CARBONATE 500 MG TAB.CHEW GT SCH ×3 (09:00→17:00)
[2017-03-13] MEDS: FAMOTIDINE (20 MG) 20 MG TABLET GT SCH ×2 (09:00→21:18)
[2017-03-13] MEDS: METOPROLOL TARTRATE 25 MG TABLET GT SCH ×2 (09:00→17:00)
[2017-03-13] MEDS: ACIDOPHILUS/BULGARICUS 1 EACH TAB.CHEW GT SCH ×3 (09:00→17:00)
[2017-03-13] MEDS: CLOPIDOGREL BISULFATE 75 MG TABLET PO SCH (09:00)
[2017-03-13] MEDS: GABAPENTIN 300 MG CAPSULE GT SCH ×3 (09:00→17:00)
[2017-03-13] MEDS: BACLOFEN (10 MG) 10 MG TABLET GT SCH ×4 (09:00→21:18)
[2017-03-13] MEDS: ASCORBIC ACID 500 MG TABLET GT SCH ×2 (09:00→17:00)
[2017-03-13] MEDS: HYDROCODONE/APAP 10/325MG 1 EA TABLET GT SCH ×2 (13:30→21:15)
[2017-03-13] MEDS: VENELEX OINTMENT TP SCH ×6 (14:00→21:00)
[2017-03-13] MEDS: NEOMY SULF/BACITRAC ZN/POLY 15 GM TUBE TP SCH (14:00)
[2017-03-13] MEDS: Z GUARD REMEDY 4 OZ OINT TP SCH ×4 (14:00→21:00)
[2017-03-13] MEDS: HYDROGEN PEROXIDE 480 ML BOTTLE TP SCH ×2 (14:00→21:18)
[2017-03-13] MEDS: MINERAL OIL/PETROL OINT 396 GM JAR TP SCH ×2 (14:00→21:18)
[2017-03-13] MEDS: HYDROGEL DRESSING 90 GM TUBE TP SCH ×2 (14:00→21:00)
[2017-03-13] MEDS: ENOXAPARIN SODIUM 40 MG/0.4 ML DISP.SYRIN SQ SCH (21:00)
[2017-03-13] MEDS: POLYETHYLENE GLYCOL 3350 17 GM POWD.PACK GT SCH (21:18)
[2017-03-13] MEDS: PROSOURCE / PROSTAT (PYXIS) 30 ML UDC GT SCH (21:18)
[2017-03-13] MEDS: CRANBERRY GT SCH (21:18)
[2017-03-13] MEDS: MULTIVIT, IRON, MIN NO. 8, FA 1 TAB GT SCH (21:18)
[2017-03-13] MEDS: LIDOCAINE 5% (PATCH) 1 EA PATCH TP SCH (21:25)
[2017-03-13] MEDS: ATORVASTATIN CALCIUM 20MG TABLET GT SCH (22:13)
[2017-03-13 22:49] VITALS: BP 111/75
[2017-03-14] MEDS: CHLORHEXIDINE GLUCONATE 15 ML UDC MM SCH ×2 (07:00→17:00)
[2017-03-14 07:50] VITALS: BP 130/77
[2017-03-14] MEDS: ACIDOPHILUS/BULGARICUS 1 EACH TAB.CHEW GT SCH ×3 (08:36→17:00)
[2017-03-14] MEDS: BACLOFEN (10 MG) 10 MG TABLET GT SCH ×4 (08:36→21:33)
[2017-03-14] MEDS: ESCITALOPRAM OXALATE (10 MG) 10 MG TABLET GT SCH (08:36)
[2017-03-14] MEDS: CALCIUM CARBONATE 500 MG TAB.CHEW GT SCH ×3 (08:37→17:00)
[2017-03-14] MEDS: CALCITRIOL 0.25 MCG CAPSULE PO SCH (08:37)
[2017-03-14] MEDS: FAMOTIDINE (20 MG) 20 MG TABLET GT SCH ×2 (08:37→21:34)
[2017-03-14] MEDS: METOPROLOL TARTRATE 25 MG TABLET GT SCH ×2 (08:37→17:00)
[2017-03-14] MEDS: ASCORBIC ACID 500 MG TABLET GT SCH ×2 (08:37→17:00)
[2017-03-14] MEDS: GABAPENTIN 300 MG CAPSULE GT SCH ×3 (08:37→17:00)
[2017-03-14] MEDS: CLOPIDOGREL BISULFATE 75 MG TABLET PO SCH (08:37)
[2017-03-14] MEDS: APAP GT PRN (08:38)
[2017-03-14] MEDS: OXYCODONE GT PRN (08:38)
[2017-03-14] MEDS: HYDROCODONE/APAP 10/325MG 1 EA TABLET GT SCH ×2 (14:30→21:34)
[2017-03-14] MEDS: HYDROGEL DRESSING 90 GM TUBE TP SCH ×2 (15:00→21:35)
[2017-03-14] MEDS: NEOMY SULF/BACITRAC ZN/POLY 15 GM TUBE TP SCH (15:00)
[2017-03-14] MEDS: MINERAL OIL/PETROL OINT 396 GM JAR TP SCH ×2 (15:00→21:35)
[2017-03-14] MEDS: Z GUARD REMEDY 4 OZ OINT TP SCH ×4 (15:00→21:35)
[2017-03-14] MEDS: VENELEX OINTMENT TP SCH ×6 (15:00→21:35)
[2017-03-14] MEDS: HYDROGEN PEROXIDE 480 ML BOTTLE TP SCH ×2 (15:00→21:35)
--- NOTE | 2017-03-14 15:00 | NUR ---
Called Dr. Gonzalez's office and left message with Marjorie regarding trach change.
[2017-03-14 20:02] VITALS: BP 125/68
[2017-03-14] MEDS: CRANBERRY GT SCH (21:33)
[2017-03-14] MEDS: POLYETHYLENE GLYCOL 3350 17 GM POWD.PACK GT SCH (21:33)
[2017-03-14] MEDS: PROSOURCE / PROSTAT (PYXIS) 30 ML UDC GT SCH (21:34)
[2017-03-14] MEDS: MULTIVIT, IRON, MIN NO. 8, FA 1 TAB GT SCH (21:34)
[2017-03-14] MEDS: LIDOCAINE 5% (PATCH) 1 EA PATCH TP SCH (21:35)
[2017-03-14] MEDS: ENOXAPARIN SODIUM 40 MG/0.4 ML DISP.SYRIN SQ SCH (21:35)
[2017-03-14] MEDS: ATORVASTATIN CALCIUM 20MG TABLET GT SCH (21:35)
[2017-03-15] MEDS: CHLORHEXIDINE GLUCONATE 15 ML UDC MM SCH ×2 (07:00→17:00)
[2017-03-15 08:04] VITALS: BP 127/83
[2017-03-15] MEDS: HYDROGEN PEROXIDE 480 ML BOTTLE TP SCH ×2 (09:00→22:30)
[2017-03-15] MEDS: HYDROGEL DRESSING 90 GM TUBE TP SCH ×2 (09:00→22:30)
[2017-03-15] MEDS: Z GUARD REMEDY 4 OZ OINT TP SCH ×4 (09:00→22:30)
[2017-03-15] MEDS: VENELEX OINTMENT TP SCH ×6 (09:00→22:30)
[2017-03-15] MEDS: MINERAL OIL/PETROL OINT 396 GM JAR TP SCH ×2 (09:00→22:30)
[2017-03-15] MEDS: NEOMY SULF/BACITRAC ZN/POLY 15 GM TUBE TP SCH (09:00)
[2017-03-15] MEDS: ESCITALOPRAM OXALATE (10 MG) 10 MG TABLET GT SCH (09:04)
[2017-03-15] MEDS: BACLOFEN (10 MG) 10 MG TABLET GT SCH ×4 (09:04→21:12)
[2017-03-15] MEDS: ACIDOPHILUS/BULGARICUS 1 EACH TAB.CHEW GT SCH ×3 (09:04→17:00)
[2017-03-15] MEDS: METOPROLOL TARTRATE 25 MG TABLET GT SCH ×2 (09:05→17:00)
[2017-03-15] MEDS: HYDROCODONE/APAP 10/325MG 1 EA TABLET GT SCH ×2 (09:05→21:48)
[2017-03-15] MEDS: ASCORBIC ACID 500 MG TABLET GT SCH ×2 (09:05→17:00)
[2017-03-15] MEDS: GABAPENTIN 300 MG CAPSULE GT SCH ×3 (09:05→17:00)
[2017-03-15] MEDS: FAMOTIDINE (20 MG) 20 MG TABLET GT SCH ×2 (09:05→21:12)
[2017-03-15] MEDS: CALCITRIOL 0.25 MCG CAPSULE PO SCH (09:05)
[2017-03-15] MEDS: CALCIUM CARBONATE 500 MG TAB.CHEW GT SCH ×3 (09:05→17:00)
[2017-03-15] MEDS: CLOPIDOGREL BISULFATE 75 MG TABLET GT SCH (09:05)
--- NOTE | 2017-03-15 12:39 | NUR ---
Seen and examined by Dr. Walker, resident verbalized that he doesn't think Lidocaine patch is really helping him with the pain. Dr. Walker ordered pain management with Dr. Serge Weller. Asked MD if he would like to substitute Ibuprofen 600mg because it is a non covered medication, he said "no". [facility] sent Ibuprofen to replace Lidocaine after current supply is completed, will then return supply to pharmacy. Ordered consult in [facility].
[2017-03-15 19:54] VITALS: BP 112/69
[2017-03-15] MEDS: LIDOCAINE 5% (PATCH) 1 EA PATCH TP SCH (21:00)
[2017-03-15] MEDS: MULTIVIT, IRON, MIN NO. 8, FA 1 TAB GT SCH (21:12)
[2017-03-15] MEDS: POLYETHYLENE GLYCOL 3350 17 GM POWD.PACK GT SCH (21:12)
[2017-03-15] MEDS: ENOXAPARIN SODIUM 40 MG/0.4 ML DISP.SYRIN SQ SCH (21:12)
[2017-03-15] MEDS: PROSOURCE / PROSTAT (PYXIS) 30 ML UDC GT SCH (21:12)
[2017-03-15] MEDS: CRANBERRY GT SCH (21:12)
[2017-03-15] MEDS: ATORVASTATIN CALCIUM 20MG TABLET GT SCH (21:13)
[2017-03-16] MEDS: METHOCARBAMOL (750MG) 750 MG TABLET GT PRN (03:47)
[2017-03-16] MEDS: CHLORHEXIDINE GLUCONATE 15 ML UDC MM SCH ×2 (07:00→17:35)
[2017-03-16 07:48] VITALS: BP 126/62
[2017-03-16] MEDS: CALCITRIOL 0.25 MCG CAPSULE PO SCH (09:00)
[2017-03-16] MEDS: CLOPIDOGREL BISULFATE 75 MG TABLET GT SCH (09:00)
[2017-03-16] MEDS: ASCORBIC ACID 500 MG TABLET GT SCH ×2 (09:00→17:35)
[2017-03-16] MEDS: VENELEX OINTMENT TP SCH ×6 (09:00→21:17)
[2017-03-16] MEDS: GABAPENTIN 300 MG CAPSULE GT SCH ×3 (09:00→17:35)
[2017-03-16] MEDS: BACLOFEN (10 MG) 10 MG TABLET GT SCH ×4 (09:00→21:15)
[2017-03-16] MEDS: HYDROGEL DRESSING 90 GM TUBE TP SCH ×2 (09:00→21:16)
[2017-03-16] MEDS: HYDROGEN PEROXIDE 480 ML BOTTLE TP SCH ×2 (09:00→21:17)
[2017-03-16] MEDS: ACIDOPHILUS/BULGARICUS 1 EACH TAB.CHEW GT SCH ×3 (09:00→17:34)
[2017-03-16] MEDS: NEOMY SULF/BACITRAC ZN/POLY 15 GM TUBE TP SCH (09:00)
[2017-03-16] MEDS: ESCITALOPRAM OXALATE (10 MG) 10 MG TABLET GT SCH (09:00)
[2017-03-16] MEDS: Z GUARD REMEDY 4 OZ OINT TP SCH ×4 (09:00→21:17)
[2017-03-16] MEDS: FAMOTIDINE (20 MG) 20 MG TABLET GT SCH ×2 (09:00→21:16)
[2017-03-16] MEDS: METOPROLOL TARTRATE 25 MG TABLET GT SCH ×2 (09:00→17:35)
[2017-03-16] MEDS: HYDROCODONE/APAP 10/325MG 1 EA TABLET GT SCH ×2 (09:00→21:16)
[2017-03-16] MEDS: CALCIUM CARBONATE 500 MG TAB.CHEW GT SCH ×3 (09:00→17:35)
[2017-03-16] MEDS: MINERAL OIL/PETROL OINT 396 GM JAR TP SCH ×2 (09:00→21:16)
[2017-03-16] MEDS: POLYETHYLENE GLYCOL 3350 17 GM POWD.PACK GT SCH (21:15)
[2017-03-16] MEDS: CRANBERRY GT SCH (21:15)
[2017-03-16] MEDS: ENOXAPARIN SODIUM 40 MG/0.4 ML DISP.SYRIN SQ SCH (21:16)
[2017-03-16] MEDS: PROSOURCE / PROSTAT (PYXIS) 30 ML UDC GT SCH (21:16)
[2017-03-16] MEDS: MULTIVIT, IRON, MIN NO. 8, FA 1 TAB GT SCH (21:16)
[2017-03-16] MEDS: ATORVASTATIN CALCIUM 20MG TABLET GT SCH (21:17)
[2017-03-16] MEDS: LIDOCAINE 5% (PATCH) 1 EA PATCH TP SCH (21:19)
[2017-03-16 23:28] VITALS: BP 108/76
[2017-03-17] MEDS: CHLORHEXIDINE GLUCONATE 15 ML UDC MM SCH ×2 (07:00→17:38)
[2017-03-17 07:55] VITALS: BP 127/70
[2017-03-17] MEDS: NEOMY SULF/BACITRAC ZN/POLY 15 GM TUBE TP SCH (09:00)
[2017-03-17] MEDS: MINERAL OIL/PETROL OINT 396 GM JAR TP SCH ×2 (09:00→09:02)
[2017-03-17] MEDS: HYDROGEN PEROXIDE 480 ML BOTTLE TP SCH (09:00)
[2017-03-17] MEDS: VENELEX OINTMENT TP SCH ×3 (09:00)
[2017-03-17] MEDS: HYDROGEL DRESSING 90 GM TUBE TP SCH (09:00)
[2017-03-17] MEDS: Z GUARD REMEDY 4 OZ OINT TP SCH ×2 (09:00)
[2017-03-17] MEDS: ESCITALOPRAM OXALATE (10 MG) 10 MG TABLET GT SCH (09:01)
[2017-03-17] MEDS: ACIDOPHILUS/BULGARICUS 1 EACH TAB.CHEW GT SCH ×3 (09:01→17:37)
[2017-03-17] MEDS: GABAPENTIN 300 MG CAPSULE GT SCH ×3 (09:01→17:38)
[2017-03-17] MEDS: BACLOFEN (10 MG) 10 MG TABLET GT SCH ×4 (09:01→21:29)
[2017-03-17] MEDS: METOPROLOL TARTRATE 25 MG TABLET GT SCH ×2 (09:01→17:38)
[2017-03-17] MEDS: CALCITRIOL 0.25 MCG CAPSULE PO SCH (09:02)
[2017-03-17] MEDS: HYDROCODONE/APAP 10/325MG 1 EA TABLET GT SCH ×2 (09:02→21:44)
[2017-03-17] MEDS: CALCIUM CARBONATE 500 MG TAB.CHEW GT SCH ×3 (09:02→17:38)
[2017-03-17] MEDS: CLOPIDOGREL BISULFATE 75 MG TABLET GT SCH (09:02)
[2017-03-17] MEDS: FAMOTIDINE (20 MG) 20 MG TABLET GT SCH ×2 (09:02→21:29)
[2017-03-17] MEDS: ASCORBIC ACID 500 MG TABLET GT SCH ×2 (09:02→17:38)
--- NOTE | 2017-03-17 09:08 | NUR ---
Left a message to Dr.Yashar Casillas for pain management consultation. Awaiting for MD to see the patient.,
--- NOTE | 2017-03-17 09:11 | NUR ---
Made a follow-up call to Dr. Gonzalez and spoke with Darryl and said he will relay the message to MD regarding monthly trach change.
[2017-03-17] MEDS: CRANBERRY GT SCH (21:29)
[2017-03-17] MEDS: MULTIVIT, IRON, MIN NO. 8, FA 1 TAB GT SCH (21:29)
[2017-03-17] MEDS: PROSOURCE / PROSTAT (PYXIS) 30 ML UDC GT SCH (21:29)
[2017-03-17] MEDS: POLYETHYLENE GLYCOL 3350 17 GM POWD.PACK GT SCH (21:29)
[2017-03-17] MEDS: ENOXAPARIN SODIUM 40 MG/0.4 ML DISP.SYRIN SQ SCH (21:30)
[2017-03-17] MEDS: ATORVASTATIN CALCIUM 20MG TABLET GT SCH (21:30)
[2017-03-17] MEDS: LIDOCAINE 5% (PATCH) 1 EA PATCH TP SCH (21:30)
[2017-03-17 21:56] VITALS: BP 127/69
[2017-03-17] MEDS: METHOCARBAMOL (750MG) 750 MG TABLET GT PRN (23:50)
[2017-03-18] MEDS: OXYCODONE GT PRN (04:20)
[2017-03-18] MEDS: APAP GT PRN (04:20)
[2017-03-18] MEDS: CHLORHEXIDINE GLUCONATE 15 ML UDC MM SCH ×2 (07:00→17:59)
[2017-03-18 07:19] VITALS: BP 115/68
[2017-03-18] MEDS: ACIDOPHILUS/BULGARICUS 1 EACH TAB.CHEW GT SCH ×3 (08:26→17:58)
[2017-03-18] MEDS: BACLOFEN (10 MG) 10 MG TABLET GT SCH ×4 (08:26→21:25)
[2017-03-18] MEDS: ESCITALOPRAM OXALATE (10 MG) 10 MG TABLET GT SCH (08:26)
[2017-03-18] MEDS: CALCIUM CARBONATE 500 MG TAB.CHEW GT SCH ×3 (08:27→17:59)
[2017-03-18] MEDS: GABAPENTIN 300 MG CAPSULE GT SCH ×3 (08:27→17:59)
[2017-03-18] MEDS: CLOPIDOGREL BISULFATE 75 MG TABLET GT SCH (08:27)
[2017-03-18] MEDS: ASCORBIC ACID 500 MG TABLET GT SCH ×2 (08:27→17:59)
[2017-03-18] MEDS: CALCITRIOL 0.25 MCG CAPSULE PO SCH (08:27)
[2017-03-18] MEDS: FAMOTIDINE (20 MG) 20 MG TABLET GT SCH ×2 (08:27→21:26)
[2017-03-18] MEDS: HYDROCODONE/APAP 10/325MG 1 EA TABLET GT SCH ×2 (09:12→21:26)
[2017-03-18] MEDS: METOPROLOL TARTRATE 25 MG TABLET GT SCH ×2 (09:45→17:59)
[2017-03-18] MEDS: Z GUARD REMEDY 4 OZ OINT TP SCH ×4 (10:15→21:29)
[2017-03-18] MEDS: VENELEX OINTMENT TP SCH ×6 (10:15→21:28)
[2017-03-18] MEDS: HYDROGEN PEROXIDE 480 ML BOTTLE TP SCH ×2 (10:15→21:28)
[2017-03-18] MEDS: NEOMY SULF/BACITRAC ZN/POLY 15 GM TUBE TP SCH (10:15)
[2017-03-18] MEDS: HYDROGEL DRESSING 90 GM TUBE TP SCH ×2 (10:15→21:28)
[2017-03-18] MEDS: MINERAL OIL/PETROL OINT 396 GM JAR TP SCH ×2 (10:15→21:27)
[2017-03-18] MEDS: ACETAMINOPHEN 650 MG/20 ML UDC- FOR SA PATIENTS ONLY GT PRN (18:18)
[2017-03-18 20:13] VITALS: BP 113/81
[2017-03-18] MEDS: POLYETHYLENE GLYCOL 3350 17 GM POWD.PACK GT SCH (21:25)
[2017-03-18] MEDS: CRANBERRY GT SCH (21:25)
[2017-03-18] MEDS: PROSOURCE / PROSTAT (PYXIS) 30 ML UDC GT SCH (21:26)
[2017-03-18] MEDS: MULTIVIT, IRON, MIN NO. 8, FA 1 TAB GT SCH (21:26)
[2017-03-18] MEDS: ENOXAPARIN SODIUM 40 MG/0.4 ML DISP.SYRIN SQ SCH (21:27)
[2017-03-18] MEDS: LIDOCAINE 5% (PATCH) 1 EA PATCH TP SCH (21:28)
[2017-03-18] MEDS: ATORVASTATIN CALCIUM 20MG TABLET GT SCH (21:29)
[2017-03-19] MEDS: HYDROCODONE/APAP 5/325MG 1 EACH TABLET GT PRN (03:14)
[2017-03-19] MEDS: CHLORHEXIDINE GLUCONATE 15 ML UDC MM SCH ×2 (07:00→16:40)
[2017-03-19 08:00] VITALS: BP 110/67
[2017-03-19] MEDS: GABAPENTIN 300 MG CAPSULE GT SCH ×3 (09:31→16:40)
[2017-03-19] MEDS: ASCORBIC ACID 500 MG TABLET GT SCH ×2 (09:31→16:40)
[2017-03-19] MEDS: CALCITRIOL 0.25 MCG CAPSULE PO SCH (09:31)
[2017-03-19] MEDS: CLOPIDOGREL BISULFATE 75 MG TABLET GT SCH (09:31)
[2017-03-19] MEDS: HYDROCODONE/APAP 10/325MG 1 EA TABLET GT SCH ×2 (09:31→21:26)
[2017-03-19] MEDS: BACLOFEN (10 MG) 10 MG TABLET GT SCH ×4 (09:31→21:26)
[2017-03-19] MEDS: FAMOTIDINE (20 MG) 20 MG TABLET GT SCH ×2 (09:31→21:26)
[2017-03-19] MEDS: CALCIUM CARBONATE 500 MG TAB.CHEW GT SCH ×3 (09:31→16:40)
[2017-03-19] MEDS: ACIDOPHILUS/BULGARICUS 1 EACH TAB.CHEW GT SCH ×3 (09:31→16:40)
[2017-03-19] MEDS: ESCITALOPRAM OXALATE (10 MG) 10 MG TABLET GT SCH (09:31)
[2017-03-19] MEDS: METOPROLOL TARTRATE 25 MG TABLET GT SCH (09:46)
[2017-03-19] MEDS: HYDROGEL DRESSING 90 GM TUBE TP SCH ×2 (10:13→21:27)
[2017-03-19] MEDS: NEOMY SULF/BACITRAC ZN/POLY 15 GM TUBE TP SCH (10:13)
[2017-03-19] MEDS: Z GUARD REMEDY 4 OZ OINT TP SCH ×4 (10:13→21:31)
[2017-03-19] MEDS: HYDROGEN PEROXIDE 480 ML BOTTLE TP SCH ×2 (10:13→21:27)
[2017-03-19] MEDS: MINERAL OIL/PETROL OINT 396 GM JAR TP SCH ×2 (10:13→21:27)
[2017-03-19] MEDS: VENELEX OINTMENT TP SCH ×6 (10:13→21:31)
[2017-03-19 20:52] VITALS: BP 111/65
[2017-03-19] MEDS: POLYETHYLENE GLYCOL 3350 17 GM POWD.PACK GT SCH (21:26)
[2017-03-19] MEDS: MULTIVIT, IRON, MIN NO. 8, FA 1 TAB GT SCH (21:26)
[2017-03-19] MEDS: PROSOURCE / PROSTAT (PYXIS) 30 ML UDC GT SCH (21:26)
[2017-03-19] MEDS: CRANBERRY GT SCH (21:26)
[2017-03-19] MEDS: ENOXAPARIN SODIUM 40 MG/0.4 ML DISP.SYRIN SQ SCH (21:27)
[2017-03-19] MEDS: LIDOCAINE 5% (PATCH) 1 EA PATCH TP SCH (21:31)
[2017-03-19] MEDS: ATORVASTATIN CALCIUM 20MG TABLET GT SCH (21:32)
[2017-03-20] MEDS: CHLORHEXIDINE GLUCONATE 15 ML UDC MM SCH ×2 (06:01→17:55)
[2017-03-20] MEDS: METOPROLOL TARTRATE 25 MG TABLET GT SCH ×2 (08:41→17:55)
[2017-03-20] MEDS: ACIDOPHILUS/BULGARICUS 1 EACH TAB.CHEW GT SCH ×3 (08:42→17:54)
[2017-03-20] MEDS: GABAPENTIN 300 MG CAPSULE GT SCH ×3 (08:42→17:55)
[2017-03-20] MEDS: HYDROCODONE/APAP 10/325MG 1 EA TABLET GT SCH ×2 (08:42→21:41)
[2017-03-20] MEDS: FAMOTIDINE (20 MG) 20 MG TABLET GT SCH ×2 (08:42→21:41)
[2017-03-20] MEDS: ASCORBIC ACID 500 MG TABLET GT SCH ×2 (08:42→17:55)
[2017-03-20] MEDS: ESCITALOPRAM OXALATE (10 MG) 10 MG TABLET GT SCH (08:42)
[2017-03-20] MEDS: CLOPIDOGREL BISULFATE 75 MG TABLET GT SCH (08:42)
[2017-03-20] MEDS: CALCITRIOL 0.25 MCG CAPSULE PO SCH (08:42)
[2017-03-20] MEDS: BACLOFEN (10 MG) 10 MG TABLET GT SCH ×4 (08:42→21:40)
[2017-03-20] MEDS: CALCIUM CARBONATE 500 MG TAB.CHEW GT SCH ×3 (08:42→17:55)
[2017-03-20] MEDS: VENELEX OINTMENT TP SCH ×6 (11:00→21:45)
[2017-03-20] MEDS: Z GUARD REMEDY 4 OZ OINT TP SCH ×4 (11:00→21:45)
[2017-03-20] MEDS: HYDROGEL DRESSING 90 GM TUBE TP SCH ×2 (11:00→21:45)
[2017-03-20] MEDS: MINERAL OIL/PETROL OINT 396 GM JAR TP SCH ×2 (11:00→21:41)
[2017-03-20] MEDS: HYDROGEN PEROXIDE 480 ML BOTTLE TP SCH ×2 (11:00→21:41)
[2017-03-20] MEDS: NEOMY SULF/BACITRAC ZN/POLY 15 GM TUBE TP SCH (11:00)
--- NOTE | 2017-03-20 15:24 | NUR ---
SW spoke with the resident as requested by the charge nurse. SW helped the resident send out an email to his friend and communicated with the resident in terms of how he was doing and feeling. Therapist provided support to client during conversation. Per charge nurse, resident did not have any specific issues but just wanted to speak to the certified social workers in health care.
--- NOTE | 2017-03-20 16:45 | NUR ---
Left message for Dr. Serge Ramirez for pain management consultation.
[2017-03-20 20:00] VITALS: BP 110/73
[2017-03-20] MEDS: CRANBERRY GT SCH (21:40)
[2017-03-20] MEDS: POLYETHYLENE GLYCOL 3350 17 GM POWD.PACK GT SCH (21:40)
[2017-03-20] MEDS: PROSOURCE / PROSTAT (PYXIS) 30 ML UDC GT SCH (21:41)
[2017-03-20] MEDS: ENOXAPARIN SODIUM 40 MG/0.4 ML DISP.SYRIN SQ SCH (21:41)
[2017-03-20] MEDS: MULTIVIT, IRON, MIN NO. 8, FA 1 TAB GT SCH (21:41)
[2017-03-20] MEDS: ATORVASTATIN CALCIUM 20MG TABLET GT SCH (21:41)
[2017-03-20] MEDS: LIDOCAINE 5% (PATCH) 1 EA PATCH TP SCH (21:45)
[2017-03-21] MEDS: CHLORHEXIDINE GLUCONATE 15 ML UDC MM SCH ×2 (07:00→17:00)
[2017-03-21 07:54] VITALS: BP 132/79
[2017-03-21] MEDS: BACLOFEN (10 MG) 10 MG TABLET GT SCH ×4 (08:18→21:31)
[2017-03-21] MEDS: ACIDOPHILUS/BULGARICUS 1 EACH TAB.CHEW GT SCH ×3 (08:18→17:00)
[2017-03-21] MEDS: ESCITALOPRAM OXALATE (10 MG) 10 MG TABLET GT SCH (08:18)
[2017-03-21] MEDS: GABAPENTIN 300 MG CAPSULE GT SCH ×3 (08:19→17:00)
[2017-03-21] MEDS: CLOPIDOGREL BISULFATE 75 MG TABLET GT SCH (08:19)
[2017-03-21] MEDS: CALCITRIOL 0.25 MCG CAPSULE PO SCH (08:19)
[2017-03-21] MEDS: METOPROLOL TARTRATE 25 MG TABLET GT SCH ×2 (08:19→17:00)
[2017-03-21] MEDS: ASCORBIC ACID 500 MG TABLET GT SCH ×2 (08:19→17:00)
[2017-03-21] MEDS: FAMOTIDINE (20 MG) 20 MG TABLET GT SCH ×2 (08:19→21:32)
[2017-03-21] MEDS: CALCIUM CARBONATE 500 MG TAB.CHEW GT SCH ×3 (08:19→17:00)
[2017-03-21] MEDS: HYDROCODONE/APAP 10/325MG 1 EA TABLET GT SCH ×2 (09:00→21:32)
[2017-03-21] MEDS: VENELEX OINTMENT TP SCH ×6 (10:00→21:33)
[2017-03-21] MEDS: MINERAL OIL/PETROL OINT 396 GM JAR TP SCH ×2 (10:00→21:33)
[2017-03-21] MEDS: HYDROGEL DRESSING 90 GM TUBE TP SCH ×2 (10:00→21:33)
[2017-03-21] MEDS: NEOMY SULF/BACITRAC ZN/POLY 15 GM TUBE TP SCH (10:00)
[2017-03-21] MEDS: Z GUARD REMEDY 4 OZ OINT TP SCH ×4 (10:00→21:33)
[2017-03-21] MEDS: HYDROGEN PEROXIDE 480 ML BOTTLE TP SCH ×2 (10:00→21:33)
--- NOTE | 2017-03-21 11:07 | NUR ---
Called Dr Serge Weller's office and left message with
--- NOTE | 2017-03-21 11:08 | NUR ---
Called Dr. Gonzalez's office to remind him of trach tube change. Left message with Nasima.
[2017-03-21 20:47] VITALS: BP 127/76
[2017-03-21] MEDS: POLYETHYLENE GLYCOL 3350 17 GM POWD.PACK GT SCH (21:31)
[2017-03-21] MEDS: CRANBERRY GT SCH (21:31)
[2017-03-21] MEDS: MULTIVIT, IRON, MIN NO. 8, FA 1 TAB GT SCH (21:32)
[2017-03-21] MEDS: PROSOURCE / PROSTAT (PYXIS) 30 ML UDC GT SCH (21:32)
[2017-03-21] MEDS: ATORVASTATIN CALCIUM 20MG TABLET GT SCH (21:33)
[2017-03-21] MEDS: LIDOCAINE 5% (PATCH) 1 EA PATCH TP SCH (21:33)
[2017-03-21] MEDS: ENOXAPARIN SODIUM 40 MG/0.4 ML DISP.SYRIN SQ SCH (21:33)
[2017-03-22] MEDS: CHLORHEXIDINE GLUCONATE 15 ML UDC MM SCH ×2 (06:23→17:00)
[2017-03-22 08:03] VITALS: BP 104/68
[2017-03-22] MEDS: HYDROGEN PEROXIDE 480 ML BOTTLE TP SCH ×2 (09:00→21:03)
[2017-03-22] MEDS: VENELEX OINTMENT TP SCH ×6 (09:00→21:05)
[2017-03-22] MEDS: HYDROGEL DRESSING 90 GM TUBE TP SCH ×2 (09:00→21:03)
[2017-03-22] MEDS: NEOMY SULF/BACITRAC ZN/POLY 15 GM TUBE TP SCH (09:00)
[2017-03-22] MEDS: Z GUARD REMEDY 4 OZ OINT TP SCH ×4 (09:00→21:05)
[2017-03-22] MEDS: ACIDOPHILUS/BULGARICUS 1 EACH TAB.CHEW GT SCH ×3 (09:47→17:49)
[2017-03-22] MEDS: ESCITALOPRAM OXALATE (10 MG) 10 MG TABLET GT SCH (09:50)
[2017-03-22] MEDS: BACLOFEN (10 MG) 10 MG TABLET GT SCH ×4 (09:50→21:01)
[2017-03-22] MEDS: HYDROCODONE/APAP 10/325MG 1 EA TABLET GT SCH ×2 (09:51→21:02)
[2017-03-22] MEDS: METOPROLOL TARTRATE 25 MG TABLET GT SCH ×2 (09:51→17:00)
[2017-03-22] MEDS: FAMOTIDINE (20 MG) 20 MG TABLET GT SCH ×2 (09:51→21:02)
[2017-03-22] MEDS: GABAPENTIN 300 MG CAPSULE GT SCH ×3 (09:51→17:49)
[2017-03-22] MEDS: CALCITRIOL 0.25 MCG CAPSULE PO SCH (09:52)
[2017-03-22] MEDS: CLOPIDOGREL BISULFATE 75 MG TABLET GT SCH (09:52)
[2017-03-22] MEDS: CALCIUM CARBONATE 500 MG TAB.CHEW GT SCH ×3 (09:52→17:50)
[2017-03-22] MEDS: MINERAL OIL/PETROL OINT 396 GM JAR TP SCH ×2 (09:52→21:02)
[2017-03-22] MEDS: ASCORBIC ACID 500 MG TABLET GT SCH ×2 (09:52→17:50)
--- NOTE | 2017-03-22 15:50 | NUR ---
SW spoke with the resident as requested by move coordinator Naya. Assisted resident in making a phone call to his friend. Resident was happy and laughing while speaking to his friends on the phone.
[2017-03-22 20:25] VITALS: BP 97/60
[2017-03-22] MEDS: POLYETHYLENE GLYCOL 3350 17 GM POWD.PACK GT SCH (21:01)
[2017-03-22] MEDS: CRANBERRY GT SCH (21:01)
[2017-03-22] MEDS: PROSOURCE / PROSTAT (PYXIS) 30 ML UDC GT SCH (21:02)
[2017-03-22] MEDS: MULTIVIT, IRON, MIN NO. 8, FA 1 TAB GT SCH (21:02)
[2017-03-22] MEDS: ENOXAPARIN SODIUM 40 MG/0.4 ML DISP.SYRIN SQ SCH (21:02)
[2017-03-22] MEDS: LIDOCAINE 5% (PATCH) 1 EA PATCH TP SCH (21:03)
[2017-03-22] MEDS: ATORVASTATIN CALCIUM 20MG TABLET GT SCH (21:05)
[2017-03-23] MEDS: CHLORHEXIDINE GLUCONATE 15 ML UDC MM SCH ×2 (07:00→16:41)
[2017-03-23 07:24] VITALS: BP 110/60
[2017-03-23] MEDS: HYDROCODONE/APAP 10/325MG 1 EA TABLET GT SCH ×2 (09:03→20:48)
[2017-03-23] MEDS: ESCITALOPRAM OXALATE (10 MG) 10 MG TABLET GT SCH (09:31)
[2017-03-23] MEDS: CLOPIDOGREL BISULFATE 75 MG TABLET GT SCH (09:31)
[2017-03-23] MEDS: GABAPENTIN 300 MG CAPSULE GT SCH ×3 (09:31→16:41)
[2017-03-23] MEDS: ASCORBIC ACID 500 MG TABLET GT SCH ×2 (09:31→16:41)
[2017-03-23] MEDS: BACLOFEN (10 MG) 10 MG TABLET GT SCH ×4 (09:31→20:48)
[2017-03-23] MEDS: FAMOTIDINE (20 MG) 20 MG TABLET GT SCH ×2 (09:31→20:49)
[2017-03-23] MEDS: CALCIUM CARBONATE 500 MG TAB.CHEW GT SCH ×3 (09:31→16:41)
[2017-03-23] MEDS: CALCITRIOL 0.25 MCG CAPSULE PO SCH (09:31)
[2017-03-23] MEDS: ACIDOPHILUS/BULGARICUS 1 EACH TAB.CHEW GT SCH ×3 (09:31→16:41)
[2017-03-23] MEDS: METOPROLOL TARTRATE 25 MG TABLET GT SCH ×2 (09:40→16:56)
[2017-03-23] MEDS: HYDROGEN PEROXIDE 480 ML BOTTLE TP SCH ×2 (10:03→20:49)
[2017-03-23] MEDS: HYDROGEL DRESSING 90 GM TUBE TP SCH ×2 (10:03→20:49)
[2017-03-23] MEDS: Z GUARD REMEDY 4 OZ OINT TP SCH ×4 (10:03→20:49)
[2017-03-23] MEDS: VENELEX OINTMENT TP SCH ×6 (10:03→20:49)
[2017-03-23] MEDS: MINERAL OIL/PETROL OINT 396 GM JAR TP SCH ×2 (10:03→20:49)
[2017-03-23] MEDS: NEOMY SULF/BACITRAC ZN/POLY 15 GM TUBE TP SCH (10:03)
[2017-03-23] MEDS: ACETAMINOPHEN 650 MG/20 ML UDC- FOR SA PATIENTS ONLY GT PRN (17:10)
--- NOTE | 2017-03-23 17:35 | NUR ---
Pt was seen by Dr. Serge Martinez. Notified him that pt has Norris, Percocet, and Lidoderm patch for pain. Also notified him that pt has a sacral wound and a right buttock wound. Dr. Martinez said he wants to DC Norris and Percocet, and start pt on low dose of Methadone which he will gradually increase. He said he will enter the order in the computer.
[2017-03-23] MEDS: CRANBERRY GT SCH (20:48)
[2017-03-23] MEDS: POLYETHYLENE GLYCOL 3350 17 GM POWD.PACK GT SCH (20:48)
--- NOTE | 2017-03-23 20:48 | NUR ---
Seen by CARLI Hoffman no new order.
[2017-03-23] MEDS: MULTIVIT, IRON, MIN NO. 8, FA 1 TAB GT SCH (20:49)
[2017-03-23] MEDS: LIDOCAINE 5% (PATCH) 1 EA PATCH TP SCH (20:49)
[2017-03-23] MEDS: ENOXAPARIN SODIUM 40 MG/0.4 ML DISP.SYRIN SQ SCH (20:49)
[2017-03-23] MEDS: PROSOURCE / PROSTAT (PYXIS) 30 ML UDC GT SCH (20:49)
[2017-03-23] MEDS: ATORVASTATIN CALCIUM 20MG TABLET GT SCH (21:02)
[2017-03-24 00:19] VITALS: BP 117/81
[2017-03-24] MEDS: MAGNESIUM HYDROXIDE 30 ML UDC GT PRN (05:04)
[2017-03-24] MEDS: METHOCARBAMOL (750MG) 750 MG TABLET GT PRN (05:04)
[2017-03-24] MEDS: CHLORHEXIDINE GLUCONATE 15 ML UDC MM SCH ×2 (07:00→17:00)
[2017-03-24 07:42] VITALS: BP 153/88
[2017-03-24] MEDS: HYDROCODONE/APAP 10/325MG 1 EA TABLET GT SCH ×2 (08:53→21:31)
[2017-03-24] MEDS: FAMOTIDINE (20 MG) 20 MG TABLET GT SCH ×2 (08:53→21:31)
[2017-03-24] MEDS: ACIDOPHILUS/BULGARICUS 1 EACH TAB.CHEW GT SCH ×3 (08:53→17:00)
[2017-03-24] MEDS: METOPROLOL TARTRATE 25 MG TABLET GT SCH ×2 (08:53→17:00)
[2017-03-24] MEDS: ESCITALOPRAM OXALATE (10 MG) 10 MG TABLET GT SCH (08:53)
[2017-03-24] MEDS: GABAPENTIN 300 MG CAPSULE GT SCH ×3 (08:53→17:00)
[2017-03-24] MEDS: BACLOFEN (10 MG) 10 MG TABLET GT SCH ×4 (08:53→21:30)
[2017-03-24] MEDS: CALCITRIOL 0.25 MCG CAPSULE PO SCH (08:54)
[2017-03-24] MEDS: CLOPIDOGREL BISULFATE 75 MG TABLET GT SCH (08:54)
[2017-03-24] MEDS: CALCIUM CARBONATE 500 MG TAB.CHEW GT SCH ×3 (08:54→17:00)
[2017-03-24] MEDS: ASCORBIC ACID 500 MG TABLET GT SCH ×2 (08:54→17:00)
[2017-03-24] MEDS: METHADONE HCL 10 MG TABLET GT SCH (09:00)
[2017-03-24] MEDS: VENELEX OINTMENT TP SCH ×6 (09:30→21:32)
[2017-03-24] MEDS: HYDROGEN PEROXIDE 480 ML BOTTLE TP SCH ×2 (09:30→21:31)
[2017-03-24] MEDS: Z GUARD REMEDY 4 OZ OINT TP SCH ×4 (09:30→21:32)
[2017-03-24] MEDS: HYDROGEL DRESSING 90 GM TUBE TP SCH ×2 (09:30→21:31)
[2017-03-24] MEDS: MINERAL OIL/PETROL OINT 396 GM JAR TP SCH ×2 (09:30→21:31)
[2017-03-24] MEDS: NEOMY SULF/BACITRAC ZN/POLY 15 GM TUBE TP SCH (09:30)
--- NOTE | 2017-03-24 11:55 | NUR ---
Clarified pain medication order with Dr. Martinez. Per report, MD plan to d/c Percocet and Oakwood. According to Dr. Martinez, he wants patient to start a low dose of Methadone and will gradually increase it. In the meantime, patient will continue with the rest of the pain medication Oakwood, Percocet and Lidoderm patch. He is also made aware that patient is routinely receiving Oakwood 10mg/325, 2 tabs prior to wound treatment. He said it is OK because it takes a couple of days before Methadone kicks in. Meanwhile made him aware that Methadone has not been started yet, [facility] is awaiting approval from the physician. Made a follow-up call with [facility], spoke with AK and gave Dr. Serge Martinez's phone # in the office to get approval for Mathadone.
[2017-03-24] MEDS: ACETAMINOPHEN 650 MG/20 ML UDC- FOR SA PATIENTS ONLY GT PRN (18:40)
[2017-03-24] MEDS: CRANBERRY GT SCH (21:30)
[2017-03-24] MEDS: POLYETHYLENE GLYCOL 3350 17 GM POWD.PACK GT SCH (21:30)
[2017-03-24] MEDS: MULTIVIT, IRON, MIN NO. 8, FA 1 TAB GT SCH (21:31)
[2017-03-24] MEDS: PROSOURCE / PROSTAT (PYXIS) 30 ML UDC GT SCH (21:31)
[2017-03-24] MEDS: ENOXAPARIN SODIUM 40 MG/0.4 ML DISP.SYRIN SQ SCH (21:31)
[2017-03-24] MEDS: ATORVASTATIN CALCIUM 20MG TABLET GT SCH (21:32)
[2017-03-24] MEDS: LIDOCAINE 5% (PATCH) 1 EA PATCH TP SCH (21:32)
[2017-03-24 23:14] VITALS: BP 120/72
[2017-03-25] MEDS: OXYCODONE GT PRN (02:35)
[2017-03-25] MEDS: APAP GT PRN (02:35)
[2017-03-25] MEDS: CHLORHEXIDINE GLUCONATE 15 ML UDC MM SCH ×2 (07:00→17:00)
[2017-03-25 07:32] VITALS: BP 110/62
[2017-03-25] MEDS: METOPROLOL TARTRATE 25 MG TABLET GT SCH ×2 (08:22→17:00)
[2017-03-25] MEDS: BACLOFEN (10 MG) 10 MG TABLET GT SCH ×4 (08:22→21:54)
[2017-03-25] MEDS: ACIDOPHILUS/BULGARICUS 1 EACH TAB.CHEW GT SCH ×3 (08:22→17:00)
[2017-03-25] MEDS: ESCITALOPRAM OXALATE (10 MG) 10 MG TABLET GT SCH (08:22)
[2017-03-25] MEDS: METHADONE HCL 10 MG TABLET GT SCH (08:22)
[2017-03-25] MEDS: CLOPIDOGREL BISULFATE 75 MG TABLET GT SCH (08:23)
[2017-03-25] MEDS: GABAPENTIN 300 MG CAPSULE GT SCH ×3 (08:23→17:00)
[2017-03-25] MEDS: FAMOTIDINE (20 MG) 20 MG TABLET GT SCH ×2 (08:23→21:55)
[2017-03-25] MEDS: CALCITRIOL 0.25 MCG CAPSULE PO SCH (08:23)
[2017-03-25] MEDS: ASCORBIC ACID 500 MG TABLET GT SCH ×2 (08:23→17:00)
[2017-03-25] MEDS: CALCIUM CARBONATE 500 MG TAB.CHEW GT SCH ×3 (08:23→17:00)
[2017-03-25] MEDS: HYDROCODONE/APAP 10/325MG 1 EA TABLET GT SCH ×2 (09:37→21:55)
[2017-03-25] MEDS: HYDROGEN PEROXIDE 480 ML BOTTLE TP SCH ×2 (10:00→21:56)
[2017-03-25] MEDS: VENELEX OINTMENT TP SCH ×6 (10:00→21:56)
[2017-03-25] MEDS: Z GUARD REMEDY 4 OZ OINT TP SCH ×4 (10:00→21:56)
[2017-03-25] MEDS: MINERAL OIL/PETROL OINT 396 GM JAR TP SCH ×2 (10:00→21:55)
[2017-03-25] MEDS: NEOMY SULF/BACITRAC ZN/POLY 15 GM TUBE TP SCH (10:00)
[2017-03-25] MEDS: HYDROGEL DRESSING 90 GM TUBE TP SCH ×2 (10:00→21:56)
[2017-03-25] MEDS: MAGNESIUM HYDROXIDE 30 ML UDC GT PRN (18:39)
[2017-03-25 20:10] VITALS: BP 117/70
[2017-03-25] MEDS: CRANBERRY GT SCH (21:54)
[2017-03-25] MEDS: POLYETHYLENE GLYCOL 3350 17 GM POWD.PACK GT SCH (21:54)
[2017-03-25] MEDS: ENOXAPARIN SODIUM 40 MG/0.4 ML DISP.SYRIN SQ SCH (21:55)
[2017-03-25] MEDS: PROSOURCE / PROSTAT (PYXIS) 30 ML UDC GT SCH (21:55)
[2017-03-25] MEDS: MULTIVIT, IRON, MIN NO. 8, FA 1 TAB GT SCH (21:55)
[2017-03-25] MEDS: LIDOCAINE 5% (PATCH) 1 EA PATCH TP SCH (21:56)
[2017-03-25] MEDS: ATORVASTATIN CALCIUM 20MG TABLET GT SCH (21:56)
[2017-03-26] MEDS: METHOCARBAMOL (750MG) 750 MG TABLET GT PRN (01:38)
[2017-03-26 07:38] VITALS: BP 115/76
[2017-03-26] MEDS: CHLORHEXIDINE GLUCONATE 15 ML UDC MM SCH ×2 (08:00→17:43)
[2017-03-26] MEDS: ACIDOPHILUS/BULGARICUS 1 EACH TAB.CHEW GT SCH ×3 (08:40→17:40)
[2017-03-26] MEDS: BACLOFEN (10 MG) 10 MG TABLET GT SCH ×4 (08:41→20:36)
[2017-03-26] MEDS: ESCITALOPRAM OXALATE (10 MG) 10 MG TABLET GT SCH (08:41)
[2017-03-26] MEDS: METHADONE HCL 10 MG TABLET GT SCH (08:43)
[2017-03-26] MEDS: FAMOTIDINE (20 MG) 20 MG TABLET GT SCH ×2 (08:44→20:37)
[2017-03-26] MEDS: CALCIUM CARBONATE 500 MG TAB.CHEW GT SCH ×3 (08:45→17:43)
[2017-03-26] MEDS: CLOPIDOGREL BISULFATE 75 MG TABLET GT SCH (08:45)
[2017-03-26] MEDS: ASCORBIC ACID 500 MG TABLET GT SCH ×2 (08:45→17:43)
[2017-03-26] MEDS: CALCITRIOL 0.25 MCG CAPSULE PO SCH (08:46)
[2017-03-26] MEDS: GABAPENTIN 300 MG CAPSULE GT SCH ×3 (08:50→17:42)
[2017-03-26] MEDS: METOPROLOL TARTRATE 25 MG TABLET GT SCH ×2 (08:51→17:41)
[2017-03-26] MEDS: HYDROCODONE/APAP 10/325MG 1 EA TABLET GT SCH ×2 (09:00→20:37)
[2017-03-26] MEDS: VENELEX OINTMENT TP SCH ×6 (09:30→21:04)
[2017-03-26] MEDS: NEOMY SULF/BACITRAC ZN/POLY 15 GM TUBE TP SCH (09:30)
[2017-03-26] MEDS: Z GUARD REMEDY 4 OZ OINT TP SCH ×4 (09:30→21:04)
[2017-03-26] MEDS: MINERAL OIL/PETROL OINT 396 GM JAR TP SCH ×2 (09:30→20:37)
[2017-03-26] MEDS: HYDROGEN PEROXIDE 480 ML BOTTLE TP SCH ×2 (09:30→21:04)
[2017-03-26] MEDS: HYDROGEL DRESSING 90 GM TUBE TP SCH ×2 (09:30→21:03)
[2017-03-26 20:06] VITALS: BP 110/57
[2017-03-26] MEDS: POLYETHYLENE GLYCOL 3350 17 GM POWD.PACK GT SCH (20:36)
[2017-03-26] MEDS: CRANBERRY GT SCH (20:36)
[2017-03-26] MEDS: ENOXAPARIN SODIUM 40 MG/0.4 ML DISP.SYRIN SQ SCH (20:37)
[2017-03-26] MEDS: PROSOURCE / PROSTAT (PYXIS) 30 ML UDC GT SCH (20:37)
[2017-03-26] MEDS: MULTIVIT, IRON, MIN NO. 8, FA 1 TAB GT SCH (20:37)
[2017-03-26] MEDS: ATORVASTATIN CALCIUM 20MG TABLET GT SCH (21:04)
[2017-03-26] MEDS: LIDOCAINE 5% (PATCH) 1 EA PATCH TP SCH (21:04)
[2017-03-27] MEDS: CHLORHEXIDINE GLUCONATE 15 ML UDC MM SCH ×2 (06:04→17:00)
[2017-03-27 07:45] VITALS: BP 118/70
[2017-03-27] MEDS: ESCITALOPRAM OXALATE (10 MG) 10 MG TABLET GT SCH (09:38)
[2017-03-27] MEDS: ACIDOPHILUS/BULGARICUS 1 EACH TAB.CHEW GT SCH ×3 (09:38→17:00)
[2017-03-27] MEDS: BACLOFEN (10 MG) 10 MG TABLET GT SCH ×4 (09:38→21:00)
[2017-03-27] MEDS: METOPROLOL TARTRATE 25 MG TABLET GT SCH ×2 (09:39→17:00)
[2017-03-27] MEDS: GABAPENTIN 300 MG CAPSULE GT SCH ×3 (09:40→17:00)
[2017-03-27] MEDS: CALCIUM CARBONATE 500 MG TAB.CHEW GT SCH ×3 (09:40→17:00)
[2017-03-27] MEDS: CALCITRIOL 0.25 MCG CAPSULE PO SCH (09:40)
[2017-03-27] MEDS: METHADONE HCL 10 MG TABLET GT SCH (09:40)
[2017-03-27] MEDS: FAMOTIDINE (20 MG) 20 MG TABLET GT SCH ×2 (09:40→21:00)
[2017-03-27] MEDS: CLOPIDOGREL BISULFATE 75 MG TABLET GT SCH (09:40)
[2017-03-27] MEDS: ASCORBIC ACID 500 MG TABLET GT SCH ×2 (09:40→17:00)
[2017-03-27] MEDS: VENELEX OINTMENT TP SCH ×6 (13:30→21:00)
[2017-03-27] MEDS: Z GUARD REMEDY 4 OZ OINT TP SCH ×4 (13:30→21:00)
[2017-03-27] MEDS: NEOMY SULF/BACITRAC ZN/POLY 15 GM TUBE TP SCH (13:30)
[2017-03-27] MEDS: HYDROGEL DRESSING 90 GM TUBE TP SCH ×2 (13:30→21:00)
[2017-03-27] MEDS: MINERAL OIL/PETROL OINT 396 GM JAR TP SCH ×2 (13:30→21:00)
[2017-03-27] MEDS: HYDROCODONE/APAP 10/325MG 1 EA TABLET GT SCH ×2 (13:30→21:00)
[2017-03-27] MEDS: HYDROGEN PEROXIDE 480 ML BOTTLE TP SCH ×2 (13:30→21:00)
--- NOTE | 2017-03-27 15:40 | NUR ---
farmworker dairy met with the resident's tlvxog-us-tic Vilma. She signed intake ppwk (patient rights acknowledgement, documentation of preferred intensity of care, conditions of admission, an important message from medicare about your rights, [place] Standard Admission Agreement, and voluntary prior express consent form). Per resident's grbocp-hu-iqg, resident to remain DNR (no CPR with supportive care only- blood transfusions, antibiotics, IV fluids, hydration/nutrition tube, transfer to acute hospital, oxygen, ventilator ALL OKAY; NO dialysis. Kvnjhc-uf-ofq proceeded to ask the resident what he was okay with but nfunxs-sz-akn felt that it was not a good time as the resident received his pain medication. She stated that we can keep current copy signed today and we can re-do it next time she visits when the patient is more alert. Fnqblu-ty-ezw Eileen is involved in the care, treatment and service decisions for the resident.
[2017-03-27 20:12] VITALS: BP 90/50
[2017-03-27] MEDS: PROSOURCE / PROSTAT (PYXIS) 30 ML UDC GT SCH (21:00)
[2017-03-27] MEDS: POLYETHYLENE GLYCOL 3350 17 GM POWD.PACK GT SCH (21:00)
[2017-03-27] MEDS: LIDOCAINE 5% (PATCH) 1 EA PATCH TP SCH (21:00)
[2017-03-27] MEDS: MULTIVIT, IRON, MIN NO. 8, FA 1 TAB GT SCH (21:00)
[2017-03-27] MEDS: ENOXAPARIN SODIUM 40 MG/0.4 ML DISP.SYRIN SQ SCH (21:00)
[2017-03-27] MEDS: CRANBERRY GT SCH (21:00)
[2017-03-27] MEDS: ATORVASTATIN CALCIUM 20MG TABLET GT SCH (22:00)
[2017-03-28] MEDS: CHLORHEXIDINE GLUCONATE 15 ML UDC MM SCH ×2 (07:07→17:59)
[2017-03-28 07:50] VITALS: BP 122/62
[2017-03-28] MEDS: ESCITALOPRAM OXALATE (10 MG) 10 MG TABLET GT SCH (09:26)
[2017-03-28] MEDS: BACLOFEN (10 MG) 10 MG TABLET GT SCH ×4 (09:26→21:00)
[2017-03-28] MEDS: ACIDOPHILUS/BULGARICUS 1 EACH TAB.CHEW GT SCH ×3 (09:26→17:58)
[2017-03-28] MEDS: METOPROLOL TARTRATE 25 MG TABLET GT SCH ×2 (09:27→17:59)
[2017-03-28] MEDS: CALCITRIOL 0.25 MCG CAPSULE PO SCH (09:28)
[2017-03-28] MEDS: GABAPENTIN 300 MG CAPSULE GT SCH ×3 (09:28→17:59)
[2017-03-28] MEDS: METHADONE HCL 10 MG TABLET GT SCH (09:28)
[2017-03-28] MEDS: CLOPIDOGREL BISULFATE 75 MG TABLET GT SCH (09:28)
[2017-03-28] MEDS: CALCIUM CARBONATE 500 MG TAB.CHEW GT SCH ×3 (09:28→17:59)
[2017-03-28] MEDS: ASCORBIC ACID 500 MG TABLET GT SCH ×2 (09:28→17:59)
[2017-03-28] MEDS: FAMOTIDINE (20 MG) 20 MG TABLET GT SCH ×2 (09:28→21:00)
[2017-03-28] MEDS: HYDROCODONE/APAP 10/325MG 1 EA TABLET GT SCH ×2 (11:00→21:00)
--- NOTE | 2017-03-28 11:29 | NUR ---
Dr. Serge Martinez called and asked if pt is already getting the Methadone 10 mg GT daily and if is still complaining of pain. Notified him that pt received PRN Percocet 3 days ago and PRN Columbia 9 days ago. He said to continue current dose of Methadone for now.
[2017-03-28] MEDS: Z GUARD REMEDY 4 OZ OINT TP SCH ×3 (11:30→21:00)
[2017-03-28] MEDS: VENELEX OINTMENT TP SCH ×3 (11:30)
[2017-03-28] MEDS: MINERAL OIL/PETROL OINT 396 GM JAR TP SCH ×2 (11:30→21:00)
[2017-03-28] MEDS: HYDROGEN PEROXIDE 480 ML BOTTLE TP SCH ×2 (11:30→21:00)
[2017-03-28] MEDS: NEOMY SULF/BACITRAC ZN/POLY 15 GM TUBE TP SCH (11:30)
[2017-03-28] MEDS: HYDROGEL DRESSING 90 GM TUBE TP SCH ×3 (11:30→21:00)
[2017-03-28] MEDS ORDERED: HYDROGEL DRESSING 90 GM TUBE TP PRN (18:00)
[2017-03-28] MEDS ORDERED: Z GUARD REMEDY 4 OZ OINT TP PRN (18:00)
[2017-03-28 20:05] VITALS: BP 102/62
[2017-03-28] MEDS: POLYETHYLENE GLYCOL 3350 17 GM POWD.PACK GT SCH (21:00)
[2017-03-28] MEDS: CRANBERRY GT SCH (21:00)
[2017-03-28] MEDS: LIDOCAINE 5% (PATCH) 1 EA PATCH TP SCH (21:00)
[2017-03-28] MEDS: PROSOURCE / PROSTAT (PYXIS) 30 ML UDC GT SCH (21:00)
[2017-03-28] MEDS: VENELEX TP SCH (21:00)
[2017-03-28] MEDS: ENOXAPARIN SODIUM 40 MG/0.4 ML DISP.SYRIN SQ SCH (21:00)
[2017-03-28] MEDS: MULTIVIT, IRON, MIN NO. 8, FA 1 TAB GT SCH (22:28)
[2017-03-28] MEDS: ATORVASTATIN CALCIUM 20MG TABLET GT SCH (22:30)
[2017-03-29] MEDS: APAP GT PRN (00:40)
[2017-03-29] MEDS: OXYCODONE GT PRN (00:40)
[2017-03-29] MEDS: CHLORHEXIDINE GLUCONATE 15 ML UDC MM SCH ×2 (06:08→17:25)
[2017-03-29 07:28] VITALS: BP 109/68
[2017-03-29] MEDS: METOPROLOL TARTRATE 25 MG TABLET GT SCH ×2 (09:00→17:25)
[2017-03-29] MEDS: CALCIUM CARBONATE 500 MG TAB.CHEW GT SCH ×3 (09:11→17:25)
[2017-03-29] MEDS: ASCORBIC ACID 500 MG TABLET GT SCH ×2 (09:11→17:25)
[2017-03-29] MEDS: CALCITRIOL 0.25 MCG CAPSULE PO SCH (09:11)
[2017-03-29] MEDS: BACLOFEN (10 MG) 10 MG TABLET GT SCH ×4 (09:11→21:30)
[2017-03-29] MEDS: ESCITALOPRAM OXALATE (10 MG) 10 MG TABLET GT SCH (09:11)
[2017-03-29] MEDS: ACIDOPHILUS/BULGARICUS 1 EACH TAB.CHEW GT SCH ×3 (09:11→17:24)
[2017-03-29] MEDS: CLOPIDOGREL BISULFATE 75 MG TABLET GT SCH (09:11)
[2017-03-29] MEDS: GABAPENTIN 300 MG CAPSULE GT SCH ×3 (09:11→17:25)
[2017-03-29] MEDS: FAMOTIDINE (20 MG) 20 MG TABLET GT SCH ×2 (09:11→21:30)
[2017-03-29] MEDS: METHADONE HCL 10 MG TABLET GT SCH (09:13)
[2017-03-29] MEDS: HYDROCODONE/APAP 10/325MG 1 EA TABLET GT SCH ×2 (11:00→21:30)
[2017-03-29] MEDS: HYDROGEL DRESSING 90 GM TUBE TP SCH ×4 (12:00→21:30)
[2017-03-29] MEDS: NEOMY SULF/BACITRAC ZN/POLY 15 GM TUBE TP SCH (12:00)
[2017-03-29] MEDS: VENELEX TP SCH ×2 (12:00→21:30)
[2017-03-29] MEDS: Z GUARD REMEDY 4 OZ OINT TP SCH ×2 (12:00→21:30)
[2017-03-29] MEDS: MINERAL OIL/PETROL OINT 396 GM JAR TP SCH ×2 (12:00→21:30)
[2017-03-29] MEDS: HYDROGEN PEROXIDE 480 ML BOTTLE TP SCH ×2 (12:00→21:30)
[2017-03-29 20:18] VITALS: BP 113/71
[2017-03-29] MEDS: POLYETHYLENE GLYCOL 3350 17 GM POWD.PACK GT SCH (21:30)
[2017-03-29] MEDS: ENOXAPARIN SODIUM 40 MG/0.4 ML DISP.SYRIN SQ SCH (21:30)
[2017-03-29] MEDS: CRANBERRY GT SCH (21:30)
[2017-03-29] MEDS: MULTIVIT, IRON, MIN NO. 8, FA 1 TAB GT SCH (21:30)
[2017-03-29] MEDS: PROSOURCE / PROSTAT (PYXIS) 30 ML UDC GT SCH (21:30)
[2017-03-29] MEDS: LIDOCAINE 5% (PATCH) 1 EA PATCH TP SCH (21:45)
[2017-03-29] MEDS: ATORVASTATIN CALCIUM 20MG TABLET GT SCH (22:40)
[2017-03-30] MEDS: CHLORHEXIDINE GLUCONATE 15 ML UDC MM SCH ×2 (07:00→17:59)
[2017-03-30 08:00] VITALS: BP 136/72
[2017-03-30] MEDS: BACLOFEN (10 MG) 10 MG TABLET GT SCH ×4 (09:42→21:00)
[2017-03-30] MEDS: ACIDOPHILUS/BULGARICUS 1 EACH TAB.CHEW GT SCH ×3 (09:42→17:58)
[2017-03-30] MEDS: ESCITALOPRAM OXALATE (10 MG) 10 MG TABLET GT SCH (09:42)
[2017-03-30] MEDS: METOPROLOL TARTRATE 25 MG TABLET GT SCH ×2 (09:43→17:59)
[2017-03-30] MEDS: METHADONE HCL 10 MG TABLET GT SCH (09:44)
[2017-03-30] MEDS: GABAPENTIN 300 MG CAPSULE GT SCH ×3 (09:44→17:59)
[2017-03-30] MEDS: CLOPIDOGREL BISULFATE 75 MG TABLET GT SCH (09:45)
[2017-03-30] MEDS: FAMOTIDINE (20 MG) 20 MG TABLET GT SCH ×2 (09:45→21:00)
[2017-03-30] MEDS: CALCIUM CARBONATE 500 MG TAB.CHEW GT SCH ×3 (09:45→17:59)
[2017-03-30] MEDS: CALCITRIOL 0.25 MCG CAPSULE PO SCH (09:45)
[2017-03-30] MEDS: ASCORBIC ACID 500 MG TABLET GT SCH ×2 (09:45→17:59)
[2017-03-30] MEDS: HYDROCODONE/APAP 10/325MG 1 EA TABLET GT SCH ×2 (09:45→21:00)
[2017-03-30] MEDS: MINERAL OIL/PETROL OINT 396 GM JAR TP SCH ×2 (10:15→21:00)
[2017-03-30] MEDS: HYDROGEN PEROXIDE 480 ML BOTTLE TP SCH ×2 (10:15→21:00)
[2017-03-30] MEDS: NEOMY SULF/BACITRAC ZN/POLY 15 GM TUBE TP SCH (10:15)
[2017-03-30] MEDS: HYDROGEL DRESSING 90 GM TUBE TP SCH ×4 (10:15→21:00)
[2017-03-30] MEDS: Z GUARD REMEDY 4 OZ OINT TP SCH ×2 (10:15→21:00)
[2017-03-30] MEDS: VENELEX TP SCH ×2 (10:15→21:00)
[2017-03-30 20:09] VITALS: BP 100/53
[2017-03-30] MEDS: PROSOURCE / PROSTAT (PYXIS) 30 ML UDC GT SCH (21:00)
[2017-03-30] MEDS: MULTIVIT, IRON, MIN NO. 8, FA 1 TAB GT SCH (21:00)
[2017-03-30] MEDS: POLYETHYLENE GLYCOL 3350 17 GM POWD.PACK GT SCH (21:00)
[2017-03-30] MEDS: CRANBERRY GT SCH (21:00)
[2017-03-30] MEDS: LIDOCAINE 5% (PATCH) 1 EA PATCH TP SCH (21:00)
[2017-03-30] MEDS: ENOXAPARIN SODIUM 40 MG/0.4 ML DISP.SYRIN SQ SCH (21:00)
[2017-03-30] MEDS: ATORVASTATIN CALCIUM 20MG TABLET GT SCH (22:00)
[2017-03-31] MEDS: APAP GT PRN ×2 (02:00→14:00)
[2017-03-31] MEDS: OXYCODONE GT PRN ×2 (02:00→14:00)
[2017-03-31] MEDS: CHLORHEXIDINE GLUCONATE 15 ML UDC MM SCH ×2 (07:02→17:00)
[2017-03-31 07:50] VITALS: BP 103/57
[2017-03-31] MEDS: BACLOFEN (10 MG) 10 MG TABLET GT SCH ×4 (09:39→20:30)
[2017-03-31] MEDS: ESCITALOPRAM OXALATE (10 MG) 10 MG TABLET GT SCH (09:39)
[2017-03-31] MEDS: METOPROLOL TARTRATE 25 MG TABLET GT SCH ×2 (09:39→17:00)
[2017-03-31] MEDS: ACIDOPHILUS/BULGARICUS 1 EACH TAB.CHEW GT SCH ×3 (09:39→17:00)
[2017-03-31] MEDS: CLOPIDOGREL BISULFATE 75 MG TABLET GT SCH (09:40)
[2017-03-31] MEDS: FAMOTIDINE (20 MG) 20 MG TABLET GT SCH ×2 (09:40→20:30)
[2017-03-31] MEDS: METHADONE HCL 10 MG TABLET GT SCH (09:40)
[2017-03-31] MEDS: CALCIUM CARBONATE 500 MG TAB.CHEW GT SCH ×3 (09:40→17:00)
[2017-03-31] MEDS: CALCITRIOL 0.25 MCG CAPSULE PO SCH (09:40)
[2017-03-31] MEDS: GABAPENTIN 300 MG CAPSULE GT SCH ×3 (09:40→17:00)
[2017-03-31] MEDS: ASCORBIC ACID 500 MG TABLET GT SCH ×2 (09:40→17:00)
[2017-03-31] MEDS: HYDROCODONE/APAP 10/325MG 1 EA TABLET GT SCH ×2 (09:40→20:30)
[2017-03-31] MEDS: VENELEX TP SCH ×2 (10:10→20:32)
[2017-03-31] MEDS: MINERAL OIL/PETROL OINT 396 GM JAR TP SCH ×2 (10:10→20:31)
[2017-03-31] MEDS: HYDROGEL DRESSING 90 GM TUBE TP SCH ×4 (10:10→20:31)
[2017-03-31] MEDS: Z GUARD REMEDY 4 OZ OINT TP SCH ×2 (10:10→20:32)
[2017-03-31] MEDS: HYDROGEN PEROXIDE 480 ML BOTTLE TP SCH ×2 (10:10→20:32)
--- NOTE | 2017-03-31 14:22 | NUR ---
INTERDISCIPLINARY TEAM CONFERENCE (IDT) was held today. Kfcrdb-ql-vdf Vilma reported that she was not going to be able to attend today. Dr. Ugarte and the interdisciplinary team reviewed the current plan of care in detail. Orders were reviewed and no new orders were given.
[2017-03-31 20:18] VITALS: BP 99/60
[2017-03-31] MEDS: MULTIVIT, IRON, MIN NO. 8, FA 1 TAB GT SCH (20:30)
[2017-03-31] MEDS: PROSOURCE / PROSTAT (PYXIS) 30 ML UDC GT SCH (20:30)
[2017-03-31] MEDS: CRANBERRY GT SCH (20:30)
[2017-03-31] MEDS: POLYETHYLENE GLYCOL 3350 17 GM POWD.PACK GT SCH (20:30)
[2017-03-31] MEDS: ENOXAPARIN SODIUM 40 MG/0.4 ML DISP.SYRIN SQ SCH (20:31)
[2017-03-31] MEDS: LIDOCAINE 5% (PATCH) 1 EA PATCH TP SCH (20:32)
[2017-03-31] MEDS: ATORVASTATIN CALCIUM 20MG TABLET GT SCH (21:06)
[2017-04-01] MEDS: CHLORHEXIDINE GLUCONATE 15 ML UDC MM SCH ×2 (07:00→17:44)
[2017-04-01 07:53] VITALS: BP 130/81
[2017-04-01] MEDS: ESCITALOPRAM OXALATE (10 MG) 10 MG TABLET GT SCH (09:39)
[2017-04-01] MEDS: METOPROLOL TARTRATE 25 MG TABLET GT SCH ×2 (09:39→17:37)
[2017-04-01] MEDS: BACLOFEN (10 MG) 10 MG TABLET GT SCH ×4 (09:39→21:18)
[2017-04-01] MEDS: ACIDOPHILUS/BULGARICUS 1 EACH TAB.CHEW GT SCH ×3 (09:39→17:37)
[2017-04-01] MEDS: MINERAL OIL/PETROL OINT 396 GM JAR TP SCH ×2 (09:40→21:19)
[2017-04-01] MEDS: CALCIUM CARBONATE 500 MG TAB.CHEW GT SCH ×3 (09:40→17:37)
[2017-04-01] MEDS: METHADONE HCL 10 MG TABLET GT SCH (09:40)
[2017-04-01] MEDS: CLOPIDOGREL BISULFATE 75 MG TABLET GT SCH (09:40)
[2017-04-01] MEDS: ASCORBIC ACID 500 MG TABLET GT SCH ×2 (09:40→17:37)
[2017-04-01] MEDS: FAMOTIDINE (20 MG) 20 MG TABLET GT SCH ×2 (09:40→21:19)
[2017-04-01] MEDS: GABAPENTIN 300 MG CAPSULE GT SCH ×3 (09:40→17:37)
[2017-04-01] MEDS: CALCITRIOL 0.25 MCG CAPSULE PO SCH (09:40)
[2017-04-01] MEDS: HYDROCODONE/APAP 10/325MG 1 EA TABLET GT SCH ×2 (10:00→21:19)
[2017-04-01] MEDS: HYDROGEN PEROXIDE 480 ML BOTTLE TP SCH ×2 (11:00→21:20)
[2017-04-01] MEDS: VENELEX TP SCH ×2 (11:00→21:56)
[2017-04-01] MEDS: HYDROGEL DRESSING 90 GM TUBE TP SCH ×4 (11:00→21:56)
[2017-04-01] MEDS: Z GUARD REMEDY 4 OZ OINT TP SCH ×2 (11:00→21:56)
--- NOTE | 2017-04-01 11:01 | NUR ---
MING for 03/31/[address] Ugarte that [address] Gonzalez ENT has not come to do monthly trach change for 2 months. Spoke with Ba from Dr. Gonzalez's office to remind MD of monthly trach change. Dr. Ugarte stated to notify administration. geotechnical department manager made aware.
--- NOTE | 2017-04-01 16:11 | NUR ---
Notified Dr. Walker that resident's F/C came out and normally staff is able to replace it. said it is OK to use Coude catheter and if it is unsuccessful may call Dr. Lee Gonzalez.
--- NOTE | 2017-04-01 17:00 | NUR ---
Inserted Coude catheter Fr 16, draining yellow urine, patient tolerated procedure well, no hematuria.
[2017-04-01 20:06] VITALS: BP 121/69
[2017-04-01] MEDS: CRANBERRY GT SCH (21:18)
[2017-04-01] MEDS: POLYETHYLENE GLYCOL 3350 17 GM POWD.PACK GT SCH (21:18)
[2017-04-01] MEDS: MULTIVIT, IRON, MIN NO. 8, FA 1 TAB GT SCH (21:19)
[2017-04-01] MEDS: PROSOURCE / PROSTAT (PYXIS) 30 ML UDC GT SCH (21:19)
[2017-04-01] MEDS: ENOXAPARIN SODIUM 40 MG/0.4 ML DISP.SYRIN SQ SCH (21:19)
[2017-04-01] MEDS: LIDOCAINE 5% (PATCH) 1 EA PATCH TP SCH (21:20)
[2017-04-01] MEDS: ATORVASTATIN CALCIUM 20MG TABLET GT SCH (21:20)
--- NOTE | 2017-04-02 01:32 | NUR ---
Coude catheter Fr [address] draining yellow urine, no hematuria noted, will continue to monitor.
[2017-04-02] MEDS: CHLORHEXIDINE GLUCONATE 15 ML UDC MM SCH ×2 (07:00→17:00)
[2017-04-02 07:55] VITALS: BP 114/62
[2017-04-02] MEDS: FAMOTIDINE (20 MG) 20 MG TABLET GT SCH ×2 (09:00→21:00)
[2017-04-02] MEDS: CLOPIDOGREL BISULFATE 75 MG TABLET GT SCH (09:00)
[2017-04-02] MEDS: CALCIUM CARBONATE 500 MG TAB.CHEW GT SCH ×3 (09:00→17:00)
[2017-04-02] MEDS: ACIDOPHILUS/BULGARICUS 1 EACH TAB.CHEW GT SCH ×3 (09:00→17:00)
[2017-04-02] MEDS: BACLOFEN (10 MG) 10 MG TABLET GT SCH ×4 (09:00→21:00)
[2017-04-02] MEDS: CALCITRIOL 0.25 MCG CAPSULE PO SCH (09:00)
[2017-04-02] MEDS: ESCITALOPRAM OXALATE (10 MG) 10 MG TABLET GT SCH (09:00)
[2017-04-02] MEDS: ASCORBIC ACID 500 MG TABLET GT SCH ×2 (09:00→17:00)
[2017-04-02] MEDS: METHADONE HCL 10 MG TABLET GT SCH (09:00)
[2017-04-02] MEDS: GABAPENTIN 300 MG CAPSULE GT SCH ×3 (09:00→17:00)
[2017-04-02] MEDS: METOPROLOL TARTRATE 25 MG TABLET GT SCH ×2 (09:00→17:00)
[2017-04-02] MEDS: HYDROCODONE/APAP 10/325MG 1 EA TABLET GT SCH ×2 (13:30→21:00)
[2017-04-02] MEDS: MINERAL OIL/PETROL OINT 396 GM JAR TP SCH ×2 (14:00→21:00)
[2017-04-02] MEDS: HYDROGEL DRESSING 90 GM TUBE TP SCH ×4 (14:00→21:00)
[2017-04-02] MEDS: Z GUARD REMEDY 4 OZ OINT TP SCH ×2 (14:00→21:00)
[2017-04-02] MEDS: HYDROGEN PEROXIDE 480 ML BOTTLE TP SCH ×2 (14:00→21:00)
[2017-04-02] MEDS: VENELEX TP SCH ×2 (14:00→21:00)
[2017-04-02 20:05] VITALS: BP 98/59
[2017-04-02] MEDS: PROSOURCE / PROSTAT (PYXIS) 30 ML UDC GT SCH (21:00)
[2017-04-02] MEDS: LIDOCAINE 5% (PATCH) 1 EA PATCH TP SCH (21:00)
[2017-04-02] MEDS: POLYETHYLENE GLYCOL 3350 17 GM POWD.PACK GT SCH (21:00)
[2017-04-02] MEDS: MULTIVIT, IRON, MIN NO. 8, FA 1 TAB GT SCH (21:00)
[2017-04-02] MEDS: ENOXAPARIN SODIUM 40 MG/0.4 ML DISP.SYRIN SQ SCH (21:00)
[2017-04-02] MEDS: CRANBERRY GT SCH (22:00)
[2017-04-02] MEDS: ATORVASTATIN CALCIUM 20MG TABLET GT SCH (22:01)
[2017-04-03] MEDS: CHLORHEXIDINE GLUCONATE 15 ML UDC MM SCH ×2 (07:01→17:00)
[2017-04-03 07:54] VITALS: BP 99/61
[2017-04-03] MEDS: ASCORBIC ACID 500 MG TABLET GT SCH ×2 (09:00→17:00)
[2017-04-03] MEDS: ESCITALOPRAM OXALATE (10 MG) 10 MG TABLET GT SCH (09:00)
[2017-04-03] MEDS: CALCITRIOL 0.25 MCG CAPSULE PO SCH (09:00)
[2017-04-03] MEDS: METOPROLOL TARTRATE 25 MG TABLET GT SCH ×2 (09:00→17:00)
[2017-04-03] MEDS: CLOPIDOGREL BISULFATE 75 MG TABLET GT SCH (09:00)
[2017-04-03] MEDS: METHADONE HCL 10 MG TABLET GT SCH (09:00)
[2017-04-03] MEDS: GABAPENTIN 300 MG CAPSULE GT SCH ×3 (09:00→17:00)
[2017-04-03] MEDS: CALCIUM CARBONATE 500 MG TAB.CHEW GT SCH ×3 (09:00→17:00)
[2017-04-03] MEDS: BACLOFEN (10 MG) 10 MG TABLET GT SCH ×4 (09:00→20:33)
[2017-04-03] MEDS: FAMOTIDINE (20 MG) 20 MG TABLET GT SCH ×2 (09:00→21:21)
[2017-04-03] MEDS: ACIDOPHILUS/BULGARICUS 1 EACH TAB.CHEW GT SCH ×3 (09:00→17:00)
[2017-04-03] MEDS: HYDROCODONE/APAP 10/325MG 1 EA TABLET GT SCH ×2 (14:00→20:33)
[2017-04-03] MEDS: MINERAL OIL/PETROL OINT 396 GM JAR TP SCH ×2 (14:30→21:21)
[2017-04-03] MEDS: Z GUARD REMEDY 4 OZ OINT TP SCH ×2 (14:30→21:22)
[2017-04-03] MEDS: VENELEX TP SCH ×2 (14:30→21:21)
[2017-04-03] MEDS: HYDROGEL DRESSING 90 GM TUBE TP SCH ×4 (14:30→21:21)
[2017-04-03] MEDS: HYDROGEN PEROXIDE 480 ML BOTTLE TP SCH ×2 (14:30→21:21)
[2017-04-03 20:01] VITALS: BP 105/56
[2017-04-03] MEDS: CRANBERRY GT SCH (20:33)
[2017-04-03] MEDS: POLYETHYLENE GLYCOL 3350 17 GM POWD.PACK GT SCH (20:33)
[2017-04-03] MEDS: ENOXAPARIN SODIUM 40 MG/0.4 ML DISP.SYRIN SQ SCH (21:21)
[2017-04-03] MEDS: MULTIVIT, IRON, MIN NO. 8, FA 1 TAB GT SCH (21:21)
[2017-04-03] MEDS: PROSOURCE / PROSTAT (PYXIS) 30 ML UDC GT SCH (21:21)
[2017-04-03] MEDS: LIDOCAINE 5% (PATCH) 1 EA PATCH TP SCH (21:22)
[2017-04-03] MEDS: ATORVASTATIN CALCIUM 20MG TABLET GT SCH (21:22)
[2017-04-04] MEDS: CHLORHEXIDINE GLUCONATE 15 ML UDC MM SCH ×2 (06:06→17:00)
[2017-04-04 07:32] VITALS: BP 126/75
[2017-04-04] MEDS: ESCITALOPRAM OXALATE (10 MG) 10 MG TABLET GT SCH (08:54)
[2017-04-04] MEDS: ACIDOPHILUS/BULGARICUS 1 EACH TAB.CHEW GT SCH ×3 (08:54→17:00)
[2017-04-04] MEDS: BACLOFEN (10 MG) 10 MG TABLET GT SCH ×4 (08:54→20:39)
[2017-04-04] MEDS: METOPROLOL TARTRATE 25 MG TABLET GT SCH ×2 (08:55→17:00)
[2017-04-04] MEDS: FAMOTIDINE (20 MG) 20 MG TABLET GT SCH ×2 (08:56→20:40)
[2017-04-04] MEDS: GABAPENTIN 300 MG CAPSULE GT SCH ×3 (08:56→17:00)
[2017-04-04] MEDS: ASCORBIC ACID 500 MG TABLET GT SCH ×2 (08:56→17:00)
[2017-04-04] MEDS: CALCIUM CARBONATE 500 MG TAB.CHEW GT SCH ×3 (08:56→17:00)
[2017-04-04] MEDS: METHADONE HCL 10 MG TABLET GT SCH (08:56)
[2017-04-04] MEDS: CALCITRIOL 0.25 MCG CAPSULE PO SCH (08:56)
[2017-04-04] MEDS: CLOPIDOGREL BISULFATE 75 MG TABLET GT SCH (08:56)
[2017-04-04] MEDS: HYDROCODONE/APAP 10/325MG 1 EA TABLET GT SCH ×2 (14:30→20:40)
[2017-04-04] MEDS: HYDROGEN PEROXIDE 480 ML BOTTLE TP SCH ×2 (15:00→21:25)
[2017-04-04] MEDS: VENELEX TP SCH ×2 (15:00→21:25)
[2017-04-04] MEDS: MINERAL OIL/PETROL OINT 396 GM JAR TP SCH ×2 (15:00→21:25)
[2017-04-04] MEDS: HYDROGEL DRESSING 90 GM TUBE TP SCH ×3 (15:00→21:25)
[2017-04-04] MEDS: Z GUARD REMEDY 4 OZ OINT TP SCH ×2 (15:00→21:26)
[2017-04-04 20:09] VITALS: BP 109/66
[2017-04-04] MEDS: CRANBERRY GT SCH (20:39)
[2017-04-04] MEDS: POLYETHYLENE GLYCOL 3350 17 GM POWD.PACK GT SCH (20:39)
[2017-04-04] MEDS: MULTIVIT, IRON, MIN NO. 8, FA 1 TAB GT SCH (20:40)
[2017-04-04] MEDS: PROSOURCE / PROSTAT (PYXIS) 30 ML UDC GT SCH (20:40)
[2017-04-04] MEDS: ENOXAPARIN SODIUM 40 MG/0.4 ML DISP.SYRIN SQ SCH (20:41)
[2017-04-04] MEDS: ATORVASTATIN CALCIUM 20MG TABLET GT SCH (21:26)
[2017-04-04] MEDS: LIDOCAINE 5% (PATCH) 1 EA PATCH TP SCH (21:26)
[2017-04-05] MEDS: CHLORHEXIDINE GLUCONATE 15 ML UDC MM SCH ×2 (06:17→17:17)
[2017-04-05 08:02] VITALS: BP 112/63
[2017-04-05] MEDS: ESCITALOPRAM OXALATE (10 MG) 10 MG TABLET GT SCH (09:19)
[2017-04-05] MEDS: ACIDOPHILUS/BULGARICUS 1 EACH TAB.CHEW GT SCH ×3 (09:19→17:16)
[2017-04-05] MEDS: BACLOFEN (10 MG) 10 MG TABLET GT SCH ×4 (09:19→20:41)
[2017-04-05] MEDS: METOPROLOL TARTRATE 25 MG TABLET GT SCH ×2 (09:20→17:17)
[2017-04-05] MEDS: METHADONE HCL 10 MG TABLET GT SCH (09:25)
[2017-04-05] MEDS: CLOPIDOGREL BISULFATE 75 MG TABLET GT SCH (09:25)
[2017-04-05] MEDS: CALCIUM CARBONATE 500 MG TAB.CHEW GT SCH ×3 (09:25→17:17)
[2017-04-05] MEDS: GABAPENTIN 300 MG CAPSULE GT SCH ×3 (09:25→17:17)
[2017-04-05] MEDS: FAMOTIDINE (20 MG) 20 MG TABLET GT SCH ×2 (09:25→20:41)
[2017-04-05] MEDS: ASCORBIC ACID 500 MG TABLET GT SCH ×2 (09:25→17:17)
[2017-04-05] MEDS: CALCITRIOL 0.25 MCG CAPSULE PO SCH (09:25)
--- NOTE | 2017-04-05 10:48 | NUR ---
Received a call from Nursing steel division supervisor and said to call Dr. Tracey for monthly trach change. Spoke with Magalie from 's office and will relay the message to Dr. Tracey.
[2017-04-05] MEDS: HYDROCODONE/APAP 10/325MG 1 EA TABLET GT SCH ×2 (11:00→20:41)
[2017-04-05] MEDS: VENELEX TP SCH ×2 (11:30→21:21)
[2017-04-05] MEDS: HYDROGEL DRESSING 90 GM TUBE TP SCH ×2 (11:30→21:20)
[2017-04-05] MEDS: HYDROGEN PEROXIDE 480 ML BOTTLE TP SCH ×2 (11:30→21:21)
[2017-04-05] MEDS: MINERAL OIL/PETROL OINT 396 GM JAR TP SCH ×2 (11:30→21:20)
[2017-04-05] MEDS: Z GUARD REMEDY 4 OZ OINT TP SCH ×2 (11:30→21:21)
--- NOTE | 2017-04-05 13:00 | NUR ---
Resident noted with DTI 1x1cm in the R buttocks next to the existing R buttocks pressure sore, for wound consult in AM. Resident at times of refuses to be turn and reposition, encouraged him to allow staff to do it more frequently.
--- NOTE | 2017-04-05 13:30 | NUR ---
Received a call from Magalie from Dr. Tracey's office stating that per , he does not do trach change. Nursing cloth grader supervisor referred this nurse to call Dr. Diaz instead at . Spoke with Juany from 's office and left a message re monthly trach change. Endorsed.
[2017-04-05 20:17] VITALS: BP 93/51
[2017-04-05] MEDS: CRANBERRY GT SCH (20:40)
[2017-04-05] MEDS: POLYETHYLENE GLYCOL 3350 17 GM POWD.PACK GT SCH (20:41)
[2017-04-05] MEDS: MULTIVIT, IRON, MIN NO. 8, FA 1 TAB GT SCH (20:41)
[2017-04-05] MEDS: PROSOURCE / PROSTAT (PYXIS) 30 ML UDC GT SCH (20:41)
[2017-04-05] MEDS: ENOXAPARIN SODIUM 40 MG/0.4 ML DISP.SYRIN SQ SCH (20:42)
[2017-04-05] MEDS: ATORVASTATIN CALCIUM 20MG TABLET GT SCH (21:22)
[2017-04-05] MEDS: LIDOCAINE 5% (PATCH) 1 EA PATCH TP SCH (21:22)
[2017-04-06] MEDS: CHLORHEXIDINE GLUCONATE 15 ML UDC MM SCH ×2 (06:14→16:47)
[2017-04-06 07:48] VITALS: BP 120/68
--- NOTE | 2017-04-06 08:40 | NUR ---
WOUND CARE CONSULT WOUND CARE RECEIVED CONSULT FOR RIGHT BUTTOCKS DTI. WOUND CARE WILL DEFER TO SURGICAL TEAM WHO ARE CURRENTLY FOLLOWING FOR WOUND/SKIN MANAGEMENT. DISCUSSED WITH REGISTERED RADIATION THERAPIST.
[2017-04-06] MEDS: BACLOFEN (10 MG) 10 MG TABLET GT SCH ×4 (09:05→21:00)
[2017-04-06] MEDS: CLOPIDOGREL BISULFATE 75 MG TABLET GT SCH (09:05)
[2017-04-06] MEDS: METOPROLOL TARTRATE 25 MG TABLET GT SCH ×2 (09:05→16:46)
[2017-04-06] MEDS: FAMOTIDINE (20 MG) 20 MG TABLET GT SCH ×2 (09:05→21:00)
[2017-04-06] MEDS: GABAPENTIN 300 MG CAPSULE GT SCH ×3 (09:05→16:46)
[2017-04-06] MEDS: CALCIUM CARBONATE 500 MG TAB.CHEW GT SCH ×3 (09:05→16:46)
[2017-04-06] MEDS: ESCITALOPRAM OXALATE (10 MG) 10 MG TABLET GT SCH (09:05)
[2017-04-06] MEDS: ACIDOPHILUS/BULGARICUS 1 EACH TAB.CHEW GT SCH ×3 (09:05→16:46)
[2017-04-06] MEDS: METHADONE HCL 10 MG TABLET GT SCH (09:05)
[2017-04-06] MEDS: ASCORBIC ACID 500 MG TABLET GT SCH ×2 (09:06→16:46)
[2017-04-06] MEDS: CALCITRIOL 0.25 MCG CAPSULE PO SCH (09:06)
[2017-04-06] MEDS: HYDROCODONE/APAP 10/325MG 1 EA TABLET GT SCH ×2 (11:00→21:00)
[2017-04-06] MEDS: MINERAL OIL/PETROL OINT 396 GM JAR TP SCH ×2 (11:30→21:00)
[2017-04-06] MEDS: VENELEX TP SCH ×2 (11:30→21:00)
[2017-04-06] MEDS: HYDROGEL DRESSING 90 GM TUBE TP SCH ×2 (11:30→21:00)
[2017-04-06] MEDS: Z GUARD REMEDY 4 OZ OINT TP SCH ×2 (11:30→21:00)
[2017-04-06] MEDS: HYDROGEN PEROXIDE 480 ML BOTTLE TP SCH ×2 (11:30→21:00)
[2017-04-06] MEDS: CRANBERRY GT SCH (21:00)
[2017-04-06] MEDS: POLYETHYLENE GLYCOL 3350 17 GM POWD.PACK GT SCH (21:00)
[2017-04-06] MEDS: ENOXAPARIN SODIUM 40 MG/0.4 ML DISP.SYRIN SQ SCH (21:00)
[2017-04-06] MEDS: PROSOURCE / PROSTAT (PYXIS) 30 ML UDC GT SCH (21:00)
[2017-04-06] MEDS: LIDOCAINE 5% (PATCH) 1 EA PATCH TP SCH (21:00)
[2017-04-06] MEDS: MULTIVIT, IRON, MIN NO. 8, FA 1 TAB GT SCH (21:00)
[2017-04-06 21:57] VITALS: BP 117/78
[2017-04-06] MEDS: ATORVASTATIN CALCIUM 20MG TABLET GT SCH (22:15)
[2017-04-07] MEDS: APAP GT PRN (01:31)
[2017-04-07] MEDS: OXYCODONE GT PRN (01:31)
[2017-04-07] MEDS: CHLORHEXIDINE GLUCONATE 15 ML UDC MM SCH ×2 (07:00→17:00)
[2017-04-07 07:34] VITALS: BP 132/63
[2017-04-07] MEDS: ESCITALOPRAM OXALATE (10 MG) 10 MG TABLET GT SCH (08:32)
[2017-04-07] MEDS: METOPROLOL TARTRATE 25 MG TABLET GT SCH ×2 (08:32→17:00)
[2017-04-07] MEDS: ACIDOPHILUS/BULGARICUS 1 EACH TAB.CHEW GT SCH ×3 (08:32→17:00)
[2017-04-07] MEDS: BACLOFEN (10 MG) 10 MG TABLET GT SCH ×4 (08:32→21:27)
[2017-04-07] MEDS: ASCORBIC ACID 500 MG TABLET GT SCH ×2 (08:33→17:00)
[2017-04-07] MEDS: GABAPENTIN 300 MG CAPSULE GT SCH ×3 (08:33→17:00)
[2017-04-07] MEDS: FAMOTIDINE (20 MG) 20 MG TABLET GT SCH ×2 (08:33→21:28)
[2017-04-07] MEDS: CLOPIDOGREL BISULFATE 75 MG TABLET GT SCH (08:33)
[2017-04-07] MEDS: CALCITRIOL 0.25 MCG CAPSULE PO SCH (08:33)
[2017-04-07] MEDS: METHADONE HCL 10 MG TABLET GT SCH (08:33)
[2017-04-07] MEDS: CALCIUM CARBONATE 500 MG TAB.CHEW GT SCH ×3 (08:33→17:00)
[2017-04-07] MEDS: HYDROCODONE/APAP 10/325MG 1 EA TABLET GT SCH ×2 (11:00→21:28)
[2017-04-07] MEDS: Z GUARD REMEDY 4 OZ OINT TP SCH ×2 (11:30→21:30)
[2017-04-07] MEDS: MINERAL OIL/PETROL OINT 396 GM JAR TP SCH ×2 (11:30→21:29)
[2017-04-07] MEDS: VENELEX TP SCH ×2 (11:30→21:29)
[2017-04-07] MEDS: HYDROGEL DRESSING 90 GM TUBE TP SCH ×2 (11:30→21:29)
[2017-04-07] MEDS: HYDROGEN PEROXIDE 480 ML BOTTLE TP SCH ×2 (11:30→21:29)
--- NOTE | 2017-04-07 12:20 | NUR ---
Spoke with Juany from Dr. Diaz's office to follow-up if MD can do monthly trach change. She said she will follow-up again with MD and will inform this nurse if he can.
[2017-04-07] MEDS: CRANBERRY GT SCH (21:27)
[2017-04-07] MEDS: POLYETHYLENE GLYCOL 3350 17 GM POWD.PACK GT SCH (21:27)
[2017-04-07] MEDS: PROSOURCE / PROSTAT (PYXIS) 30 ML UDC GT SCH (21:28)
[2017-04-07] MEDS: MULTIVIT, IRON, MIN NO. 8, FA 1 TAB GT SCH (21:28)
[2017-04-07] MEDS: ENOXAPARIN SODIUM 40 MG/0.4 ML DISP.SYRIN SQ SCH (21:29)
[2017-04-07] MEDS: LIDOCAINE 5% (PATCH) 1 EA PATCH TP SCH (21:30)
[2017-04-07] MEDS: ATORVASTATIN CALCIUM 20MG TABLET GT SCH (21:30)
[2017-04-07 22:27] VITALS: BP 113/69
[2017-04-08] MEDS: CHLORHEXIDINE GLUCONATE 15 ML UDC MM SCH ×2 (07:00→17:15)
[2017-04-08 07:43] VITALS: BP 97/63
[2017-04-08] MEDS: ESCITALOPRAM OXALATE (10 MG) 10 MG TABLET GT SCH (08:34)
[2017-04-08] MEDS: ACIDOPHILUS/BULGARICUS 1 EACH TAB.CHEW GT SCH ×3 (08:34→17:13)
[2017-04-08] MEDS: BACLOFEN (10 MG) 10 MG TABLET GT SCH ×4 (08:36→21:41)
[2017-04-08] MEDS: METOPROLOL TARTRATE 25 MG TABLET GT SCH ×2 (08:37→17:00)
[2017-04-08] MEDS: GABAPENTIN 300 MG CAPSULE GT SCH ×3 (08:37→17:14)
[2017-04-08] MEDS: FAMOTIDINE (20 MG) 20 MG TABLET GT SCH ×2 (08:37→21:42)
[2017-04-08] MEDS: METHADONE HCL 10 MG TABLET GT SCH (08:37)
[2017-04-08] MEDS: CALCITRIOL 0.25 MCG CAPSULE PO SCH (08:39)
[2017-04-08] MEDS: ASCORBIC ACID 500 MG TABLET GT SCH ×2 (08:39→17:14)
[2017-04-08] MEDS: CALCIUM CARBONATE 500 MG TAB.CHEW GT SCH ×3 (08:39→17:14)
[2017-04-08] MEDS: MINERAL OIL/PETROL OINT 396 GM JAR TP SCH ×2 (09:00→21:46)
[2017-04-08] MEDS: CLOPIDOGREL BISULFATE 75 MG TABLET GT SCH (09:00)
[2017-04-08] MEDS: HYDROCODONE/APAP 10/325MG 1 EA TABLET GT SCH ×2 (11:00→21:41)
[2017-04-08] MEDS: Z GUARD REMEDY 4 OZ OINT TP SCH ×2 (12:00→22:05)
[2017-04-08] MEDS: HYDROGEN PEROXIDE 480 ML BOTTLE TP SCH ×2 (12:00→21:46)
[2017-04-08] MEDS: HYDROGEL DRESSING 90 GM TUBE TP SCH ×2 (12:00→22:05)
[2017-04-08] MEDS: VENELEX TP SCH ×2 (12:00→22:05)
[2017-04-08 20:02] VITALS: BP 94/57
[2017-04-08] MEDS: CRANBERRY GT SCH (21:41)
[2017-04-08] MEDS: POLYETHYLENE GLYCOL 3350 17 GM POWD.PACK GT SCH (21:41)
[2017-04-08] MEDS: ATORVASTATIN CALCIUM 20MG TABLET GT SCH (21:42)
[2017-04-08] MEDS: MULTIVIT, IRON, MIN NO. 8, FA 1 TAB GT SCH (21:42)
[2017-04-08] MEDS: LIDOCAINE 5% (PATCH) 1 EA PATCH TP SCH (21:42)
[2017-04-08] MEDS: PROSOURCE / PROSTAT (PYXIS) 30 ML UDC GT SCH (21:42)
[2017-04-08] MEDS: ENOXAPARIN SODIUM 40 MG/0.4 ML DISP.SYRIN SQ SCH (21:46)
[2017-04-09] MEDS: APAP GT PRN (05:34)
[2017-04-09] MEDS: OXYCODONE GT PRN (05:34)
[2017-04-09 07:42] VITALS: BP 125/75
[2017-04-09] MEDS: CHLORHEXIDINE GLUCONATE 15 ML UDC MM SCH ×2 (08:00→17:00)
[2017-04-09] MEDS: HYDROGEL DRESSING 90 GM TUBE TP SCH ×2 (09:00→21:00)
[2017-04-09] MEDS: HYDROCODONE/APAP 10/325MG 1 EA TABLET GT SCH ×2 (09:00→21:00)
[2017-04-09] MEDS: VENELEX TP SCH ×2 (09:00→21:00)
[2017-04-09] MEDS: ESCITALOPRAM OXALATE (10 MG) 10 MG TABLET GT SCH (09:13)
[2017-04-09] MEDS: BACLOFEN (10 MG) 10 MG TABLET GT SCH ×4 (09:13→21:00)
[2017-04-09] MEDS: ACIDOPHILUS/BULGARICUS 1 EACH TAB.CHEW GT SCH ×3 (09:13→17:00)
[2017-04-09] MEDS: METOPROLOL TARTRATE 25 MG TABLET GT SCH ×2 (09:18→17:00)
[2017-04-09] MEDS: FAMOTIDINE (20 MG) 20 MG TABLET GT SCH ×2 (09:20→21:00)
[2017-04-09] MEDS: CALCITRIOL 0.25 MCG CAPSULE PO SCH (09:20)
[2017-04-09] MEDS: GABAPENTIN 300 MG CAPSULE GT SCH ×3 (09:20→17:00)
[2017-04-09] MEDS: HYDROGEN PEROXIDE 480 ML BOTTLE TP SCH ×2 (09:20→21:00)
[2017-04-09] MEDS: METHADONE HCL 10 MG TABLET GT SCH (09:20)
[2017-04-09] MEDS: ASCORBIC ACID 500 MG TABLET GT SCH ×2 (09:20→17:00)
[2017-04-09] MEDS: MINERAL OIL/PETROL OINT 396 GM JAR TP SCH ×2 (09:20→21:00)
[2017-04-09] MEDS: CALCIUM CARBONATE 500 MG TAB.CHEW GT SCH ×3 (09:20→17:00)
[2017-04-09] MEDS: CLOPIDOGREL BISULFATE 75 MG TABLET GT SCH (09:20)
[2017-04-09] MEDS: Z GUARD REMEDY 4 OZ OINT TP SCH ×2 (09:21→21:00)
[2017-04-09] MEDS: CRANBERRY GT SCH (21:00)
[2017-04-09] MEDS: LIDOCAINE 5% (PATCH) 1 EA PATCH TP SCH (21:00)
[2017-04-09] MEDS: POLYETHYLENE GLYCOL 3350 17 GM POWD.PACK GT SCH (21:00)
[2017-04-09] MEDS: MULTIVIT, IRON, MIN NO. 8, FA 1 TAB GT SCH (21:00)
[2017-04-09] MEDS: PROSOURCE / PROSTAT (PYXIS) 30 ML UDC GT SCH (21:00)
[2017-04-09] MEDS: ENOXAPARIN SODIUM 40 MG/0.4 ML DISP.SYRIN SQ SCH (21:00)
[2017-04-09 21:12] VITALS: BP 96/54
[2017-04-09] MEDS: ATORVASTATIN CALCIUM 20MG TABLET GT SCH (22:29)
[2017-04-10] MEDS: CHLORHEXIDINE GLUCONATE 15 ML UDC MM SCH ×2 (07:10→16:33)
[2017-04-10 07:47] VITALS: BP 110/72
[2017-04-10] MEDS: BACLOFEN (10 MG) 10 MG TABLET GT SCH ×4 (09:19→21:24)
[2017-04-10] MEDS: ESCITALOPRAM OXALATE (10 MG) 10 MG TABLET GT SCH (09:19)
[2017-04-10] MEDS: ACIDOPHILUS/BULGARICUS 1 EACH TAB.CHEW GT SCH ×3 (09:19→16:33)
[2017-04-10] MEDS: GABAPENTIN 300 MG CAPSULE GT SCH ×3 (09:20→16:33)
[2017-04-10] MEDS: CALCIUM CARBONATE 500 MG TAB.CHEW GT SCH ×3 (09:20→16:33)
[2017-04-10] MEDS: CALCITRIOL 0.25 MCG CAPSULE PO SCH (09:20)
[2017-04-10] MEDS: CLOPIDOGREL BISULFATE 75 MG TABLET GT SCH (09:20)
[2017-04-10] MEDS: METHADONE HCL 10 MG TABLET GT SCH (09:20)
[2017-04-10] MEDS: FAMOTIDINE (20 MG) 20 MG TABLET GT SCH ×2 (09:20→21:25)
[2017-04-10] MEDS: ASCORBIC ACID 500 MG TABLET GT SCH ×2 (09:20→16:33)
[2017-04-10] MEDS: MINERAL OIL/PETROL OINT 396 GM JAR TP SCH ×2 (09:20→21:26)
[2017-04-10] MEDS: METOPROLOL TARTRATE 25 MG TABLET GT SCH ×2 (09:20→16:33)
[2017-04-10] MEDS: HYDROCODONE/APAP 10/325MG 1 EA TABLET GT SCH ×2 (11:00→21:25)
[2017-04-10] MEDS: VENELEX TP SCH ×2 (12:00→21:26)
[2017-04-10] MEDS: Z GUARD REMEDY 4 OZ OINT TP SCH ×2 (12:00→21:27)
[2017-04-10] MEDS: HYDROGEN PEROXIDE 480 ML BOTTLE TP SCH ×2 (12:00→21:26)
[2017-04-10] MEDS: HYDROGEL DRESSING 90 GM TUBE TP SCH ×2 (12:00→21:26)
[2017-04-10 20:21] VITALS: BP 90/53
[2017-04-10] MEDS: POLYETHYLENE GLYCOL 3350 17 GM POWD.PACK GT SCH (21:24)
[2017-04-10] MEDS: CRANBERRY GT SCH (21:24)
[2017-04-10] MEDS: MULTIVIT, IRON, MIN NO. 8, FA 1 TAB GT SCH (21:25)
[2017-04-10] MEDS: PROSOURCE / PROSTAT (PYXIS) 30 ML UDC GT SCH (21:25)
[2017-04-10] MEDS: ENOXAPARIN SODIUM 40 MG/0.4 ML DISP.SYRIN SQ SCH (21:26)
[2017-04-10] MEDS: LIDOCAINE 5% (PATCH) 1 EA PATCH TP SCH (21:26)
[2017-04-10] MEDS: ATORVASTATIN CALCIUM 20MG TABLET GT SCH (21:27)
[2017-04-11 07:44] VITALS: BP 109/67
[2017-04-11] MEDS: CHLORHEXIDINE GLUCONATE 15 ML UDC MM SCH ×2 (08:00→16:53)
[2017-04-11] MEDS: BACLOFEN (10 MG) 10 MG TABLET GT SCH ×4 (09:00→21:12)
[2017-04-11] MEDS: HYDROCODONE/APAP 10/325MG 1 EA TABLET GT SCH ×2 (09:00→21:12)
[2017-04-11] MEDS: METOPROLOL TARTRATE 25 MG TABLET GT SCH ×2 (09:00→16:51)
[2017-04-11] MEDS: METHADONE HCL 10 MG TABLET GT SCH (09:00)
[2017-04-11] MEDS: HYDROGEN PEROXIDE 480 ML BOTTLE TP SCH ×2 (09:30→21:13)
[2017-04-11] MEDS: VENELEX TP SCH ×2 (09:30→21:13)
[2017-04-11] MEDS: Z GUARD REMEDY 4 OZ OINT TP SCH ×2 (09:30→21:14)
[2017-04-11] MEDS: MINERAL OIL/PETROL OINT 396 GM JAR TP SCH ×2 (09:30→21:13)
[2017-04-11] MEDS: HYDROGEL DRESSING 90 GM TUBE TP SCH ×2 (09:30→21:13)
[2017-04-11] MEDS: ACIDOPHILUS/BULGARICUS 1 EACH TAB.CHEW GT SCH ×3 (09:59→16:50)
[2017-04-11] MEDS: CALCIUM CARBONATE 500 MG TAB.CHEW GT SCH ×3 (10:00→16:53)
[2017-04-11] MEDS: CALCITRIOL 0.25 MCG CAPSULE PO SCH (10:00)
[2017-04-11] MEDS: CLOPIDOGREL BISULFATE 75 MG TABLET GT SCH (10:00)
[2017-04-11] MEDS: FAMOTIDINE (20 MG) 20 MG TABLET GT SCH ×2 (10:00→21:12)
[2017-04-11] MEDS: ASCORBIC ACID 500 MG TABLET GT SCH ×2 (10:00→16:53)
[2017-04-11] MEDS: ESCITALOPRAM OXALATE (10 MG) 10 MG TABLET GT SCH (10:00)
[2017-04-11] MEDS: GABAPENTIN 300 MG CAPSULE GT SCH ×3 (10:00→16:53)
[2017-04-11] MEDS: HYDROCODONE/APAP 5/325MG 1 EACH TABLET GT PRN ×2 (13:18→17:15)
[2017-04-11 19:25] VITALS: BP 107/56
[2017-04-11] MEDS: PROSOURCE / PROSTAT (PYXIS) 30 ML UDC GT SCH (21:12)
[2017-04-11] MEDS: POLYETHYLENE GLYCOL 3350 17 GM POWD.PACK GT SCH (21:12)
[2017-04-11] MEDS: MULTIVIT, IRON, MIN NO. 8, FA 1 TAB GT SCH (21:12)
[2017-04-11] MEDS: CRANBERRY GT SCH (21:12)
[2017-04-11] MEDS: ENOXAPARIN SODIUM 40 MG/0.4 ML DISP.SYRIN SQ SCH (21:13)
[2017-04-11] MEDS: LIDOCAINE 5% (PATCH) 1 EA PATCH TP SCH (21:14)
[2017-04-11] MEDS: ATORVASTATIN CALCIUM 20MG TABLET GT SCH (21:14)
[2017-04-12] MEDS: HYDROCODONE/APAP 5/325MG 1 EACH TABLET GT PRN (00:29)
[2017-04-12] MEDS: CHLORHEXIDINE GLUCONATE 15 ML UDC MM SCH ×2 (06:40→16:24)
[2017-04-12 08:08] VITALS: BP 123/69
[2017-04-12] MEDS: ESCITALOPRAM OXALATE (10 MG) 10 MG TABLET GT SCH (09:16)
[2017-04-12] MEDS: METOPROLOL TARTRATE 25 MG TABLET GT SCH ×2 (09:16→16:24)
[2017-04-12] MEDS: ACIDOPHILUS/BULGARICUS 1 EACH TAB.CHEW GT SCH ×3 (09:16→16:23)
[2017-04-12] MEDS: BACLOFEN (10 MG) 10 MG TABLET GT SCH ×4 (09:16→21:39)
[2017-04-12] MEDS: METHADONE HCL 10 MG TABLET GT SCH (09:20)
[2017-04-12] MEDS: CALCIUM CARBONATE 500 MG TAB.CHEW GT SCH ×3 (09:21→16:24)
[2017-04-12] MEDS: CLOPIDOGREL BISULFATE 75 MG TABLET GT SCH (09:21)
[2017-04-12] MEDS: FAMOTIDINE (20 MG) 20 MG TABLET GT SCH ×2 (09:21→21:39)
[2017-04-12] MEDS: GABAPENTIN 300 MG CAPSULE GT SCH ×3 (09:21→16:24)
[2017-04-12] MEDS: ASCORBIC ACID 500 MG TABLET GT SCH ×2 (09:22→16:24)
[2017-04-12] MEDS: CALCITRIOL 0.25 MCG CAPSULE PO SCH (09:22)
[2017-04-12] MEDS: MINERAL OIL/PETROL OINT 396 GM JAR TP SCH ×2 (09:22→21:40)
[2017-04-12] MEDS: HYDROCODONE/APAP 10/325MG 1 EA TABLET GT SCH ×2 (12:12→21:39)
[2017-04-12] MEDS: HYDROGEN PEROXIDE 480 ML BOTTLE TP SCH ×2 (13:12→21:40)
[2017-04-12] MEDS: HYDROGEL DRESSING 90 GM TUBE TP SCH ×2 (13:12→22:00)
[2017-04-12] MEDS: Z GUARD REMEDY 4 OZ OINT TP SCH (13:12)
[2017-04-12] MEDS: VENELEX TP SCH (13:12)
--- NOTE | 2017-04-12 15:00 | NUR ---
Asked Roxanna Tapia NP if their group is following the patient for wound consult, according to Roxanna Conroy is. 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 Ms. Tapia reviewed treatment orders and ordered to d/c Venelex and change to Iodosorb in wound treatments.
[2017-04-12] MEDS ORDERED: Z GUARD REMEDY 4 OZ OINT TP SCH (17:28)
--- NOTE | 2017-04-12 17:30 | NUR ---
Paula BOYCE notified that after reviewing the chart it was noted that Dr. Conroy's group is following the patient's lesions and Dr. Floyd Torres's group is following the patient's wound. Showed the picture with DTI in the R buttocks and made aware that Roxanna Tapia NP changed the treatment order because she thought that they were following the patient's wound. Paula said it is OK to keep Iodosorb order in the wound x 30 days and then evaluate.
[2017-04-12 20:30] VITALS: BP 127/74
[2017-04-12] MEDS: POLYETHYLENE GLYCOL 3350 17 GM POWD.PACK GT SCH (21:39)
[2017-04-12] MEDS: PROSOURCE / PROSTAT (PYXIS) 30 ML UDC GT SCH (21:39)
[2017-04-12] MEDS: CRANBERRY GT SCH (21:39)
[2017-04-12] MEDS: MULTIVIT, IRON, MIN NO. 8, FA 1 TAB GT SCH (21:39)
[2017-04-12] MEDS: ATORVASTATIN CALCIUM 20MG TABLET GT SCH (21:40)
[2017-04-12] MEDS: LIDOCAINE 5% (PATCH) 1 EA PATCH TP SCH (21:40)
[2017-04-12] MEDS: ENOXAPARIN SODIUM 40 MG/0.4 ML DISP.SYRIN SQ SCH (21:40)
[2017-04-12] MEDS: CADEXOMER IODINE 40 GM TUBE TP SCH ×3 (22:00)
[2017-04-13] MEDS: APAP GT PRN (03:00)
[2017-04-13] MEDS: OXYCODONE GT PRN (03:00)
[2017-04-13] MEDS: CHLORHEXIDINE GLUCONATE 15 ML UDC MM SCH ×2 (07:00→17:56)
[2017-04-13 07:44] VITALS: BP 113/69
[2017-04-13] MEDS: GABAPENTIN 300 MG CAPSULE GT SCH ×3 (08:58→17:56)
[2017-04-13] MEDS: METOPROLOL TARTRATE 25 MG TABLET GT SCH ×2 (08:58→17:56)
[2017-04-13] MEDS: METHADONE HCL 10 MG TABLET GT SCH (08:58)
[2017-04-13] MEDS: BACLOFEN (10 MG) 10 MG TABLET GT SCH ×4 (08:58→21:23)
[2017-04-13] MEDS: ESCITALOPRAM OXALATE (10 MG) 10 MG TABLET GT SCH (08:58)
[2017-04-13] MEDS: ACIDOPHILUS/BULGARICUS 1 EACH TAB.CHEW GT SCH ×3 (08:58→17:56)
[2017-04-13] MEDS: CALCITRIOL 0.25 MCG CAPSULE PO SCH (08:59)
[2017-04-13] MEDS: ASCORBIC ACID 500 MG TABLET GT SCH ×2 (08:59→17:56)
[2017-04-13] MEDS: FAMOTIDINE (20 MG) 20 MG TABLET GT SCH ×2 (08:59→21:24)
[2017-04-13] MEDS: CALCIUM CARBONATE 500 MG TAB.CHEW GT SCH ×3 (08:59→17:56)
[2017-04-13] MEDS: CLOPIDOGREL BISULFATE 75 MG TABLET GT SCH (08:59)
[2017-04-13] MEDS: HYDROCODONE/APAP 10/325MG 1 EA TABLET GT SCH ×2 (13:10→22:00)
[2017-04-13] MEDS: HYDROGEL DRESSING 90 GM TUBE TP SCH ×2 (14:00→22:30)
[2017-04-13] MEDS: MINERAL OIL/PETROL OINT 396 GM JAR TP SCH ×2 (14:00→21:24)
[2017-04-13] MEDS: HYDROGEN PEROXIDE 480 ML BOTTLE TP SCH ×2 (14:00→22:30)
[2017-04-13] MEDS: CADEXOMER IODINE 40 GM TUBE TP SCH ×6 (14:00→22:30)
[2017-04-13 20:15] VITALS: BP 102/60
[2017-04-13] MEDS: POLYETHYLENE GLYCOL 3350 17 GM POWD.PACK GT SCH (21:23)
[2017-04-13] MEDS: CRANBERRY GT SCH (21:23)
[2017-04-13] MEDS: ATORVASTATIN CALCIUM 20MG TABLET GT SCH (21:24)
[2017-04-13] MEDS: ENOXAPARIN SODIUM 40 MG/0.4 ML DISP.SYRIN SQ SCH (21:24)
[2017-04-13] MEDS: MULTIVIT, IRON, MIN NO. 8, FA 1 TAB GT SCH (21:24)
[2017-04-13] MEDS: LIDOCAINE 5% (PATCH) 1 EA PATCH TP SCH (21:24)
[2017-04-13] MEDS: PROSOURCE / PROSTAT (PYXIS) 30 ML UDC GT SCH (21:24)
[2017-04-14] MEDS: OXYCODONE GT PRN (04:20)
[2017-04-14] MEDS: APAP GT PRN (04:20)
[2017-04-14] MEDS: CHLORHEXIDINE GLUCONATE 15 ML UDC MM SCH ×2 (07:00→17:13)
[2017-04-14 07:22] VITALS: BP 149/79
[2017-04-14] MEDS: BACLOFEN (10 MG) 10 MG TABLET GT SCH ×4 (09:31→21:30)
[2017-04-14] MEDS: ESCITALOPRAM OXALATE (10 MG) 10 MG TABLET GT SCH (09:31)
[2017-04-14] MEDS: ACIDOPHILUS/BULGARICUS 1 EACH TAB.CHEW GT SCH ×3 (09:31→17:17)
[2017-04-14] MEDS: METHADONE HCL 10 MG TABLET GT SCH (09:31)
[2017-04-14] MEDS: ASCORBIC ACID 500 MG TABLET GT SCH ×2 (09:32→17:13)
[2017-04-14] MEDS: FAMOTIDINE (20 MG) 20 MG TABLET GT SCH ×2 (09:32→21:30)
[2017-04-14] MEDS: CLOPIDOGREL BISULFATE 75 MG TABLET GT SCH (09:32)
[2017-04-14] MEDS: CALCIUM CARBONATE 500 MG TAB.CHEW GT SCH ×3 (09:32→17:17)
[2017-04-14] MEDS: GABAPENTIN 300 MG CAPSULE GT SCH ×3 (09:32→17:17)
[2017-04-14] MEDS: CALCITRIOL 0.25 MCG CAPSULE PO SCH (09:32)
[2017-04-14] MEDS: METOPROLOL TARTRATE 25 MG TABLET GT SCH ×2 (09:51→17:44)
[2017-04-14] MEDS: HYDROCODONE/APAP 10/325MG 1 EA TABLET GT SCH ×2 (12:30→21:54)
[2017-04-14] MEDS: HYDROGEL DRESSING 90 GM TUBE TP SCH ×2 (13:30→22:30)
[2017-04-14] MEDS: CADEXOMER IODINE 40 GM TUBE TP SCH ×6 (13:30→22:30)
[2017-04-14] MEDS: HYDROGEN PEROXIDE 480 ML BOTTLE TP SCH ×2 (13:30→22:30)
[2017-04-14] MEDS: MINERAL OIL/PETROL OINT 396 GM JAR TP SCH ×2 (13:30→21:30)
[2017-04-14 20:30] VITALS: BP 101/58
[2017-04-14] MEDS: MULTIVIT, IRON, MIN NO. 8, FA 1 TAB GT SCH (21:30)
[2017-04-14] MEDS: ENOXAPARIN SODIUM 40 MG/0.4 ML DISP.SYRIN SQ SCH (21:30)
[2017-04-14] MEDS: PROSOURCE / PROSTAT (PYXIS) 30 ML UDC GT SCH (21:30)
[2017-04-14] MEDS: POLYETHYLENE GLYCOL 3350 17 GM POWD.PACK GT SCH (21:30)
[2017-04-14] MEDS: LIDOCAINE 5% (PATCH) 1 EA PATCH TP SCH (21:30)
[2017-04-14] MEDS: CRANBERRY GT SCH (21:30)
[2017-04-14] MEDS: ATORVASTATIN CALCIUM 20MG TABLET GT SCH (22:45)
[2017-04-15] MEDS: CHLORHEXIDINE GLUCONATE 15 ML UDC MM SCH ×2 (07:00→17:20)
[2017-04-15] MEDS: METOPROLOL TARTRATE 25 MG TABLET GT SCH ×2 (09:00→17:00)
[2017-04-15] MEDS: METHADONE HCL 10 MG TABLET GT SCH (09:24)
[2017-04-15] MEDS: GABAPENTIN 300 MG CAPSULE GT SCH ×3 (09:30→17:20)
[2017-04-15] MEDS: CALCIUM CARBONATE 500 MG TAB.CHEW GT SCH ×3 (09:30→17:20)
[2017-04-15] MEDS: ASCORBIC ACID 500 MG TABLET GT SCH ×2 (09:30→17:20)
[2017-04-15] MEDS: CALCITRIOL 0.25 MCG CAPSULE PO SCH (09:30)
[2017-04-15] MEDS: ACIDOPHILUS/BULGARICUS 1 EACH TAB.CHEW GT SCH ×3 (09:30→17:20)
[2017-04-15] MEDS: ESCITALOPRAM OXALATE (10 MG) 10 MG TABLET GT SCH (09:30)
[2017-04-15] MEDS: CLOPIDOGREL BISULFATE 75 MG TABLET GT SCH (09:30)
[2017-04-15] MEDS: FAMOTIDINE (20 MG) 20 MG TABLET GT SCH ×2 (09:30→21:00)
[2017-04-15] MEDS: BACLOFEN (10 MG) 10 MG TABLET GT SCH ×4 (09:30→21:00)
[2017-04-15] MEDS: HYDROCODONE/APAP 10/325MG 1 EA TABLET GT SCH ×2 (11:30→21:00)
[2017-04-15] MEDS: HYDROGEN PEROXIDE 480 ML BOTTLE TP SCH ×2 (12:30→21:00)
[2017-04-15] MEDS: MINERAL OIL/PETROL OINT 396 GM JAR TP SCH ×2 (12:30→21:00)
[2017-04-15] MEDS: CADEXOMER IODINE 40 GM TUBE TP SCH ×6 (12:30→21:00)
[2017-04-15] MEDS: HYDROGEL DRESSING 90 GM TUBE TP SCH ×2 (12:30→21:00)
[2017-04-15 14:52] VITALS: BP 128/75
[2017-04-15 19:17] VITALS: BP 121/77
[2017-04-15] MEDS: PROSOURCE / PROSTAT (PYXIS) 30 ML UDC GT SCH (21:00)
[2017-04-15] MEDS: MULTIVIT, IRON, MIN NO. 8, FA 1 TAB GT SCH (21:00)
[2017-04-15] MEDS: POLYETHYLENE GLYCOL 3350 17 GM POWD.PACK GT SCH (21:00)
[2017-04-15] MEDS: LIDOCAINE 5% (PATCH) 1 EA PATCH TP SCH (21:00)
[2017-04-15] MEDS: ENOXAPARIN SODIUM 40 MG/0.4 ML DISP.SYRIN SQ SCH (21:00)
[2017-04-15] MEDS: CRANBERRY GT SCH (21:00)
[2017-04-15] MEDS: ATORVASTATIN CALCIUM 20MG TABLET GT SCH (22:48)
[2017-04-16] MEDS: CHLORHEXIDINE GLUCONATE 15 ML UDC MM SCH ×2 (07:00→17:49)
[2017-04-16 07:46] VITALS: BP 110/67
[2017-04-16] MEDS: HYDROGEN PEROXIDE 480 ML BOTTLE TP SCH ×2 (09:00→21:49)
[2017-04-16] MEDS: METHADONE HCL 10 MG TABLET GT SCH (09:00)
[2017-04-16] MEDS: GABAPENTIN 300 MG CAPSULE GT SCH ×3 (09:00→17:49)
[2017-04-16] MEDS: CALCITRIOL 0.25 MCG CAPSULE PO SCH (09:00)
[2017-04-16] MEDS: ESCITALOPRAM OXALATE (10 MG) 10 MG TABLET GT SCH (09:00)
[2017-04-16] MEDS: CALCIUM CARBONATE 500 MG TAB.CHEW GT SCH ×3 (09:00→17:49)
[2017-04-16] MEDS: CLOPIDOGREL BISULFATE 75 MG TABLET GT SCH (09:00)
[2017-04-16] MEDS: HYDROCODONE/APAP 10/325MG 1 EA TABLET GT SCH ×2 (09:00→21:48)
[2017-04-16] MEDS: MINERAL OIL/PETROL OINT 396 GM JAR TP SCH ×2 (09:00→21:49)
[2017-04-16] MEDS: FAMOTIDINE (20 MG) 20 MG TABLET GT SCH ×2 (09:00→21:49)
[2017-04-16] MEDS: BACLOFEN (10 MG) 10 MG TABLET GT SCH ×4 (09:00→21:48)
[2017-04-16] MEDS: HYDROGEL DRESSING 90 GM TUBE TP SCH ×2 (09:00→21:49)
[2017-04-16] MEDS: CADEXOMER IODINE 40 GM TUBE TP SCH ×6 (09:00→21:49)
[2017-04-16] MEDS: ACIDOPHILUS/BULGARICUS 1 EACH TAB.CHEW GT SCH ×3 (09:00→17:49)
[2017-04-16] MEDS: ASCORBIC ACID 500 MG TABLET GT SCH ×2 (09:00→17:49)
[2017-04-16] MEDS: METOPROLOL TARTRATE 25 MG TABLET GT SCH ×2 (09:00→17:49)
[2017-04-16 20:04] VITALS: BP 95/59
[2017-04-16] MEDS: CRANBERRY GT SCH (21:48)
[2017-04-16] MEDS: POLYETHYLENE GLYCOL 3350 17 GM POWD.PACK GT SCH (21:48)
[2017-04-16] MEDS: PROSOURCE / PROSTAT (PYXIS) 30 ML UDC GT SCH (21:49)
[2017-04-16] MEDS: ENOXAPARIN SODIUM 40 MG/0.4 ML DISP.SYRIN SQ SCH (21:49)
[2017-04-16] MEDS: MULTIVIT, IRON, MIN NO. 8, FA 1 TAB GT SCH (21:49)
[2017-04-16] MEDS: ATORVASTATIN CALCIUM 20MG TABLET GT SCH (21:49)
[2017-04-16] MEDS: LIDOCAINE 5% (PATCH) 1 EA PATCH TP SCH (21:49)
[2017-04-17] MEDS: CHLORHEXIDINE GLUCONATE 15 ML UDC MM SCH ×2 (07:01→16:34)
[2017-04-17 08:01] VITALS: BP 137/73
[2017-04-17] MEDS: ESCITALOPRAM OXALATE (10 MG) 10 MG TABLET GT SCH (08:32)
[2017-04-17] MEDS: ACIDOPHILUS/BULGARICUS 1 EACH TAB.CHEW GT SCH ×3 (08:32→16:34)
[2017-04-17] MEDS: BACLOFEN (10 MG) 10 MG TABLET GT SCH ×4 (08:32→21:40)
[2017-04-17] MEDS: MINERAL OIL/PETROL OINT 396 GM JAR TP SCH ×2 (08:33→21:41)
[2017-04-17] MEDS: METOPROLOL TARTRATE 25 MG TABLET GT SCH ×2 (08:33→16:34)
[2017-04-17] MEDS: CALCITRIOL 0.25 MCG CAPSULE PO SCH (08:33)
[2017-04-17] MEDS: GABAPENTIN 300 MG CAPSULE GT SCH ×3 (08:33→16:34)
[2017-04-17] MEDS: ASCORBIC ACID 500 MG TABLET GT SCH ×2 (08:33→16:34)
[2017-04-17] MEDS: CALCIUM CARBONATE 500 MG TAB.CHEW GT SCH ×3 (08:33→16:34)
[2017-04-17] MEDS: CLOPIDOGREL BISULFATE 75 MG TABLET GT SCH (08:33)
[2017-04-17] MEDS: METHADONE HCL 10 MG TABLET GT SCH (08:33)
[2017-04-17] MEDS: FAMOTIDINE (20 MG) 20 MG TABLET GT SCH ×2 (08:33→21:41)
[2017-04-17] MEDS: HYDROCODONE/APAP 10/325MG 1 EA TABLET GT SCH ×2 (11:00→21:41)
[2017-04-17] MEDS: CADEXOMER IODINE 40 GM TUBE TP SCH ×6 (12:00→21:42)
[2017-04-17] MEDS: HYDROGEN PEROXIDE 480 ML BOTTLE TP SCH ×2 (12:00→21:41)
[2017-04-17] MEDS: HYDROGEL DRESSING 90 GM TUBE TP SCH ×2 (12:00→21:41)
[2017-04-17 19:53] VITALS: BP 106/64
[2017-04-17] MEDS: CRANBERRY GT SCH (21:40)
[2017-04-17] MEDS: POLYETHYLENE GLYCOL 3350 17 GM POWD.PACK GT SCH (21:40)
[2017-04-17] MEDS: MULTIVIT, IRON, MIN NO. 8, FA 1 TAB GT SCH (21:41)
[2017-04-17] MEDS: PROSOURCE / PROSTAT (PYXIS) 30 ML UDC GT SCH (21:41)
[2017-04-17] MEDS: ENOXAPARIN SODIUM 40 MG/0.4 ML DISP.SYRIN SQ SCH (21:41)
[2017-04-17] MEDS: ATORVASTATIN CALCIUM 20MG TABLET GT SCH (21:42)
[2017-04-17] MEDS: LIDOCAINE 5% (PATCH) 1 EA PATCH TP SCH (21:42)
[2017-04-18] MEDS: CHLORHEXIDINE GLUCONATE 15 ML UDC MM SCH ×2 (07:00→17:00)
[2017-04-18 07:52] VITALS: BP 118/74
[2017-04-18] MEDS: BACLOFEN (10 MG) 10 MG TABLET GT SCH ×4 (09:00→21:22)
[2017-04-18] MEDS: ESCITALOPRAM OXALATE (10 MG) 10 MG TABLET GT SCH (09:00)
[2017-04-18] MEDS: GABAPENTIN 300 MG CAPSULE GT SCH ×3 (09:00→17:00)
[2017-04-18] MEDS: CLOPIDOGREL BISULFATE 75 MG TABLET GT SCH (09:00)
[2017-04-18] MEDS: CALCIUM CARBONATE 500 MG TAB.CHEW GT SCH ×3 (09:00→17:00)
[2017-04-18] MEDS: ACIDOPHILUS/BULGARICUS 1 EACH TAB.CHEW GT SCH ×3 (09:00→17:00)
[2017-04-18] MEDS: ASCORBIC ACID 500 MG TABLET GT SCH ×2 (09:00→17:00)
[2017-04-18] MEDS: FAMOTIDINE (20 MG) 20 MG TABLET GT SCH ×2 (09:00→21:22)
[2017-04-18] MEDS: METOPROLOL TARTRATE 25 MG TABLET GT SCH ×2 (09:00→17:00)
[2017-04-18] MEDS: CALCITRIOL 0.25 MCG CAPSULE PO SCH (09:00)
[2017-04-18] MEDS: METHADONE HCL 10 MG TABLET GT SCH (09:30)
[2017-04-18] MEDS: HYDROCODONE/APAP 10/325MG 1 EA TABLET GT SCH ×2 (10:30→21:22)
[2017-04-18] MEDS: CADEXOMER IODINE 40 GM TUBE TP SCH ×6 (10:30→21:24)
[2017-04-18] MEDS: HYDROGEL DRESSING 90 GM TUBE TP SCH ×2 (11:30→21:23)
[2017-04-18] MEDS: HYDROGEN PEROXIDE 480 ML BOTTLE TP SCH ×2 (11:30→21:23)
[2017-04-18] MEDS: MINERAL OIL/PETROL OINT 396 GM JAR TP SCH ×2 (11:30→21:23)
[2017-04-18] MEDS: HYDROCODONE/APAP 5/325MG 1 EACH TABLET GT PRN (15:18)
[2017-04-18 20:39] VITALS: BP 121/77
[2017-04-18] MEDS: MULTIVIT, IRON, MIN NO. 8, FA 1 TAB GT SCH (21:22)
[2017-04-18] MEDS: POLYETHYLENE GLYCOL 3350 17 GM POWD.PACK GT SCH (21:22)
[2017-04-18] MEDS: PROSOURCE / PROSTAT (PYXIS) 30 ML UDC GT SCH (21:22)
[2017-04-18] MEDS: CRANBERRY GT SCH (21:22)
[2017-04-18] MEDS: ENOXAPARIN SODIUM 40 MG/0.4 ML DISP.SYRIN SQ SCH (21:23)
[2017-04-18] MEDS: LIDOCAINE 5% (PATCH) 1 EA PATCH TP SCH (21:24)
[2017-04-18] MEDS: ATORVASTATIN CALCIUM 20MG TABLET GT SCH (21:25)
[2017-04-19] MEDS: CHLORHEXIDINE GLUCONATE 15 ML UDC MM SCH ×2 (05:51→17:00)
[2017-04-19 07:59] VITALS: BP 118/75
[2017-04-19] MEDS: ESCITALOPRAM OXALATE (10 MG) 10 MG TABLET GT SCH (09:41)
[2017-04-19] MEDS: METOPROLOL TARTRATE 25 MG TABLET GT SCH ×2 (09:41→17:00)
[2017-04-19] MEDS: ACIDOPHILUS/BULGARICUS 1 EACH TAB.CHEW GT SCH ×3 (09:41→17:00)
[2017-04-19] MEDS: BACLOFEN (10 MG) 10 MG TABLET GT SCH ×4 (09:41→21:16)
[2017-04-19] MEDS: GABAPENTIN 300 MG CAPSULE GT SCH ×3 (09:42→17:00)
[2017-04-19] MEDS: MINERAL OIL/PETROL OINT 396 GM JAR TP SCH ×2 (09:42→21:19)
[2017-04-19] MEDS: CALCITRIOL 0.25 MCG CAPSULE PO SCH (09:42)
[2017-04-19] MEDS: CLOPIDOGREL BISULFATE 75 MG TABLET GT SCH (09:42)
[2017-04-19] MEDS: FAMOTIDINE (20 MG) 20 MG TABLET GT SCH ×2 (09:42→21:19)
[2017-04-19] MEDS: CALCIUM CARBONATE 500 MG TAB.CHEW GT SCH ×3 (09:42→17:00)
[2017-04-19] MEDS: ASCORBIC ACID 500 MG TABLET GT SCH ×2 (09:42→17:00)
[2017-04-19] MEDS: METHADONE HCL 10 MG TABLET GT SCH (09:42)
[2017-04-19] MEDS: HYDROCODONE/APAP 10/325MG 1 EA TABLET GT SCH ×2 (12:00→22:00)
[2017-04-19] MEDS: CADEXOMER IODINE 40 GM TUBE TP SCH ×6 (13:00→22:30)
[2017-04-19] MEDS: HYDROGEN PEROXIDE 480 ML BOTTLE TP SCH ×2 (13:00→22:30)
[2017-04-19] MEDS: HYDROGEL DRESSING 90 GM TUBE TP SCH ×2 (13:00→22:30)
[2017-04-19] MEDS: CRANBERRY GT SCH (21:16)
[2017-04-19] MEDS: PROSOURCE / PROSTAT (PYXIS) 30 ML UDC GT SCH (21:19)
[2017-04-19] MEDS: LIDOCAINE 5% (PATCH) 1 EA PATCH TP SCH (21:19)
[2017-04-19] MEDS: ENOXAPARIN SODIUM 40 MG/0.4 ML DISP.SYRIN SQ SCH (21:19)
[2017-04-19] MEDS: ATORVASTATIN CALCIUM 20MG TABLET GT SCH (21:19)
[2017-04-19] MEDS: MULTIVIT, IRON, MIN NO. 8, FA 1 TAB GT SCH (21:19)
[2017-04-19] MEDS: POLYETHYLENE GLYCOL 3350 17 GM POWD.PACK GT SCH (21:19)
[2017-04-19 21:29] VITALS: BP 117/69
--- NOTE | 2017-04-20 06:04 | NUR ---
NOTED PATIENT URINE OUTPUT WITH STRONG ODOR,CLOUDY WITH SEDIMENTS.AFEBRILE,NOS/S OF INFECTION.OFFERED PATIENT TO INCREASE HIS WATER INTAKE.WILL CONTINUE TO MONITOR AND WILL ENDORSE.
[2017-04-20] MEDS: CHLORHEXIDINE GLUCONATE 15 ML UDC MM SCH ×2 (07:00→17:54)
[2017-04-20 07:39] VITALS: BP 110/59
[2017-04-20] MEDS: METOPROLOL TARTRATE 25 MG TABLET GT SCH ×2 (09:00→17:54)
[2017-04-20] MEDS: ACIDOPHILUS/BULGARICUS 1 EACH TAB.CHEW GT SCH ×3 (09:23→17:53)
[2017-04-20] MEDS: ESCITALOPRAM OXALATE (10 MG) 10 MG TABLET GT SCH (09:23)
[2017-04-20] MEDS: BACLOFEN (10 MG) 10 MG TABLET GT SCH ×4 (09:23→20:50)
[2017-04-20] MEDS: GABAPENTIN 300 MG CAPSULE GT SCH ×3 (09:24→17:54)
[2017-04-20] MEDS: ASCORBIC ACID 500 MG TABLET GT SCH ×2 (09:24→17:54)
[2017-04-20] MEDS: FAMOTIDINE (20 MG) 20 MG TABLET GT SCH ×2 (09:24→20:51)
[2017-04-20] MEDS: HYDROCODONE/APAP 10/325MG 1 EA TABLET GT SCH ×2 (09:24→20:51)
[2017-04-20] MEDS: CALCITRIOL 0.25 MCG CAPSULE PO SCH (09:24)
[2017-04-20] MEDS: METHADONE HCL 10 MG TABLET GT SCH (09:24)
[2017-04-20] MEDS: CALCIUM CARBONATE 500 MG TAB.CHEW GT SCH ×3 (09:24→17:54)
[2017-04-20] MEDS: CLOPIDOGREL BISULFATE 75 MG TABLET GT SCH (09:24)
[2017-04-20] MEDS: CADEXOMER IODINE 40 GM TUBE TP SCH ×6 (10:00→20:55)
[2017-04-20] MEDS: MINERAL OIL/PETROL OINT 396 GM JAR TP SCH ×2 (10:00→20:52)
[2017-04-20] MEDS: HYDROGEL DRESSING 90 GM TUBE TP SCH ×2 (10:00→20:54)
[2017-04-20] MEDS: HYDROGEN PEROXIDE 480 ML BOTTLE TP SCH ×2 (10:00→20:54)
[2017-04-20 19:52] VITALS: BP 101/62
[2017-04-20] MEDS: CRANBERRY GT SCH (20:50)
[2017-04-20] MEDS: POLYETHYLENE GLYCOL 3350 17 GM POWD.PACK GT SCH (20:50)
[2017-04-20] MEDS: ENOXAPARIN SODIUM 40 MG/0.4 ML DISP.SYRIN SQ SCH (20:51)
[2017-04-20] MEDS: PROSOURCE / PROSTAT (PYXIS) 30 ML UDC GT SCH (20:51)
[2017-04-20] MEDS: MULTIVIT, IRON, MIN NO. 8, FA 1 TAB GT SCH (20:51)
[2017-04-20] MEDS: LIDOCAINE 5% (PATCH) 1 EA PATCH TP SCH (20:55)
[2017-04-20] MEDS: ATORVASTATIN CALCIUM 20MG TABLET GT SCH (21:10)
[2017-04-21] MEDS: MAGNESIUM HYDROXIDE 30 ML UDC GT PRN ×2 (05:28→20:09)
--- NOTE | 2017-04-21 06:56 | NUR ---
Pt noted with episodes of confusion last night,unable to recognize place,and regular staff.Pt re- oriented.Urine output cloudy,yellowish in color.Remains afebrile.Will continue to monitor and will endorse.
[2017-04-21] MEDS: CHLORHEXIDINE GLUCONATE 15 ML UDC MM SCH ×2 (07:00→17:00)
[2017-04-21 07:46] VITALS: BP 113/63
[2017-04-21] MEDS: CALCIUM CARBONATE 500 MG TAB.CHEW GT SCH ×3 (09:00→17:00)
[2017-04-21] MEDS: ASCORBIC ACID 500 MG TABLET GT SCH ×2 (09:00→17:00)
[2017-04-21] MEDS: ESCITALOPRAM OXALATE (10 MG) 10 MG TABLET GT SCH (09:00)
[2017-04-21] MEDS: FAMOTIDINE (20 MG) 20 MG TABLET GT SCH ×2 (09:00→20:06)
[2017-04-21] MEDS: ACIDOPHILUS/BULGARICUS 1 EACH TAB.CHEW GT SCH ×3 (09:00→17:00)
[2017-04-21] MEDS: BACLOFEN (10 MG) 10 MG TABLET GT SCH ×4 (09:00→20:06)
[2017-04-21] MEDS: HYDROCODONE/APAP 10/325MG 1 EA TABLET GT SCH ×2 (09:00→20:06)
[2017-04-21] MEDS: GABAPENTIN 300 MG CAPSULE GT SCH ×3 (09:00→17:00)
[2017-04-21] MEDS: CALCITRIOL 0.25 MCG CAPSULE PO SCH (09:00)
[2017-04-21] MEDS: METHADONE HCL 10 MG TABLET GT SCH (09:00)
[2017-04-21] MEDS: METOPROLOL TARTRATE 25 MG TABLET GT SCH ×2 (09:00→17:00)
[2017-04-21] MEDS: CLOPIDOGREL BISULFATE 75 MG TABLET GT SCH (09:00)
[2017-04-21] MEDS: HYDROGEL DRESSING 90 GM TUBE TP SCH ×2 (09:30→20:07)
[2017-04-21] MEDS: MINERAL OIL/PETROL OINT 396 GM JAR TP SCH ×2 (09:30→20:07)
[2017-04-21] MEDS: CADEXOMER IODINE 40 GM TUBE TP SCH ×6 (09:30→20:07)
[2017-04-21] MEDS: HYDROGEN PEROXIDE 480 ML BOTTLE TP SCH ×2 (09:30→20:07)
--- NOTE | 2017-04-21 09:45 | NUR ---
Notified Dr. Walker resident with confusion last night with cloudy urine. VS 98.6, 54, 12 96, 113/63, new order given for labs, chest XRAY and UA and ammonia level. Orders noted and carried out. Resident informed.
[2017-04-21 12:07] LABS: BASOPHILS % (AUTO) 0.4 % (0.0-2.0); EOSINOPHILS % (AUTO) 3.8 % (0.0-6.0); HEMATOCRIT 31 % (39-51); HEMOGLOBIN 10.2 g/dL (13.5-17.5); LYMPHOCYTES # (AUTO) 1.4 /CMM (0.8-4.8); LYMPHOCYTES % (AUTO) 21.1 % (20.0-44.0); MEAN CORPUSCULAR HEMOGLOBIN 28 PG (26.0-33.0); MEAN CORPUSCULAR HGB CONC 33 g/dl (31.0-36.0); MEAN CORPUSCULAR VOLUME 84 fL (80-96); MONOCYTES # (AUTO) 0.7 /CMM (0.1-1.30); MONOCYTES % (AUTO) 10.6 % (2.0-12.0); NEUTROPHILS # (AUTO) 4.2 /CMM (1.8-8.9); NEUTROPHILS % (AUTO) 64.1 % (43.0-81.0); PLATELET COUNT (AUTO) 394 /CMM (150-450); RDW COEFFICIENT OF VARIATION 17.5 (11.5-15.0); RED BLOOD CELL COUNT(AUTO) 3.71 MIL/uL (4.5-6.0); WHITE BLOOD COUNT (AUTO) 6.6 K/uL (4.3-11.0)
[2017-04-21 12:36] LABS: ALBUMIN 2.6 g/dL (3.4-5.0); BILIRUBIN,TOTAL 0.3 mg/dL (0.2-1.0); CALCIUM, SERUM 8.8 mg/dL (8.5-10.1); CREATININE 0.8 mg/dL (0.6-1.3); POTASSIUM 4.5 mmol/L (3.5-5.1); TOTAL PROTEIN, SERUM 7.7 g/dL (6.4-8.2)
[2017-04-21 19:38] VITALS: BP 110/69
[2017-04-21] MEDS: CRANBERRY GT SCH (20:06)
[2017-04-21] MEDS: ENOXAPARIN SODIUM 40 MG/0.4 ML DISP.SYRIN SQ SCH (20:06)
[2017-04-21] MEDS: MULTIVIT, IRON, MIN NO. 8, FA 1 TAB GT SCH (20:06)
[2017-04-21] MEDS: PROSOURCE / PROSTAT (PYXIS) 30 ML UDC GT SCH (20:06)
[2017-04-21] MEDS: POLYETHYLENE GLYCOL 3350 17 GM POWD.PACK GT SCH (20:06)
[2017-04-21] MEDS: LIDOCAINE 5% (PATCH) 1 EA PATCH TP SCH (20:07)
[2017-04-21] MEDS: ATORVASTATIN CALCIUM 20MG TABLET GT SCH (21:18)
[2017-04-21 21:46] LABS: APPEARANCE,URINE CLOUDY (CLEAR); COLOR,URINE YELLOW (YELLOW)
[2017-04-21 21:47] LABS: PROTEIN,URINE 2+ mg/dl (NEGATIVE)
[2017-04-21 21:51] LABS: BILIRUBIN,URINE NEGATIVE (NEGATIVE); BLOOD, URINE 1+ Ery/uL (NEGATIVE); UGLUCOSE NEGATIVE (NEGATIVE)
[2017-04-21 21:52] LABS: KETONES,URINE NEGATIVE (NEGATIVE); UROBILINOGEN,URINE NORMAL EU/dL (0.2)
[2017-04-21 21:53] LABS: LEUKOCYTE ESTERASE ,URINE 3+ (NEGATIVE); NITRITE, URINE POSITIVE (NEGATIVE)
[2017-04-21 21:59] LABS: BACTERIA,URINE Many /HPF (None Seen); SQUAMOUS EPITHELIAL CELL,UR Few /HPF (None Seen); WBC,URINE 21-50 /HPF (0-3)
[2017-04-22] MEDS: METHOCARBAMOL (750MG) 750 MG TABLET GT PRN (05:16)
[2017-04-22] MEDS: MAGNESIUM HYDROXIDE 30 ML UDC GT PRN ×2 (05:16→20:19)
[2017-04-22] MEDS: CHLORHEXIDINE GLUCONATE 15 ML UDC MM SCH ×2 (07:00→17:00)
[2017-04-22 07:41] VITALS: BP 112/66
[2017-04-22] MEDS: METOPROLOL TARTRATE 25 MG TABLET GT SCH ×2 (09:00→17:00)
[2017-04-22] MEDS: HYDROGEL DRESSING 90 GM TUBE TP SCH ×2 (09:00→20:18)
[2017-04-22] MEDS: ESCITALOPRAM OXALATE (10 MG) 10 MG TABLET GT SCH (09:32)
[2017-04-22] MEDS: ACIDOPHILUS/BULGARICUS 1 EACH TAB.CHEW GT SCH ×3 (09:32→17:00)
[2017-04-22] MEDS: BACLOFEN (10 MG) 10 MG TABLET GT SCH ×4 (09:32→20:18)
[2017-04-22] MEDS: METHADONE HCL 10 MG TABLET GT SCH (09:33)
[2017-04-22] MEDS: GABAPENTIN 300 MG CAPSULE GT SCH ×3 (09:33→17:00)
[2017-04-22] MEDS: CALCIUM CARBONATE 500 MG TAB.CHEW GT SCH ×3 (09:34→17:00)
[2017-04-22] MEDS: CALCITRIOL 0.25 MCG CAPSULE PO SCH (09:34)
[2017-04-22] MEDS: ASCORBIC ACID 500 MG TABLET GT SCH ×2 (09:34→17:00)
[2017-04-22] MEDS: HYDROCODONE/APAP 10/325MG 1 EA TABLET GT SCH ×2 (09:34→20:18)
[2017-04-22] MEDS: FAMOTIDINE (20 MG) 20 MG TABLET GT SCH ×2 (09:34→20:18)
[2017-04-22] MEDS: CLOPIDOGREL BISULFATE 75 MG TABLET GT SCH (09:34)
[2017-04-22] MEDS: HYDROGEN PEROXIDE 480 ML BOTTLE TP SCH ×2 (10:00→20:19)
[2017-04-22] MEDS: CADEXOMER IODINE 40 GM TUBE TP SCH ×6 (10:00→20:19)
[2017-04-22] MEDS: MINERAL OIL/PETROL OINT 396 GM JAR TP SCH ×2 (10:00→20:18)
--- NOTE | 2017-04-22 11:00 | NUR ---
Dr. Ugarte seen result of chest Xray and UA, NNO order given.
[2017-04-22 19:21] VITALS: BP 111/73
[2017-04-22] MEDS: PROSOURCE / PROSTAT (PYXIS) 30 ML UDC GT SCH (20:18)
[2017-04-22] MEDS: ENOXAPARIN SODIUM 40 MG/0.4 ML DISP.SYRIN SQ SCH (20:18)
[2017-04-22] MEDS: CRANBERRY GT SCH (20:18)
[2017-04-22] MEDS: POLYETHYLENE GLYCOL 3350 17 GM POWD.PACK GT SCH (20:18)
[2017-04-22] MEDS: MULTIVIT, IRON, MIN NO. 8, FA 1 TAB GT SCH (20:18)
[2017-04-22] MEDS: LIDOCAINE 5% (PATCH) 1 EA PATCH TP SCH (20:19)
[2017-04-22] MEDS: ATORVASTATIN CALCIUM 20MG TABLET GT SCH (21:04)
--- NOTE | 2017-04-22 22:00 | NUR ---
PT'S GUZMAN CATHETER NOTED OUT/ DISLODGED; NO SIGNS OF TRAUMA OR BLEEDING NOTED, INSERTED NEW GUZMAN CATH 16 FR /10 CC BAL, TOLERATED WELL BY PT WITH NO C/O PAIN OR DISCOMFORT AT ALL, CLEAR YELLOW URINE OBTAINED AND DRAINING WELL, NO SIGNS OF BLEEDING NOTED, GUZMAN CATH PATENT AND SECURED. WILL CONT TO MONITOR.
[2017-04-23] MEDS: METHOCARBAMOL (750MG) 750 MG TABLET GT PRN (05:15)
[2017-04-23] MEDS: ACETAMINOPHEN 650 MG/20 ML UDC- FOR SA PATIENTS ONLY GT PRN (05:16)
[2017-04-23] MEDS: CHLORHEXIDINE GLUCONATE 15 ML UDC MM SCH ×2 (07:00→17:00)
[2017-04-23 07:35] VITALS: BP 104/56
[2017-04-23] MEDS: BACLOFEN (10 MG) 10 MG TABLET GT SCH ×4 (08:36→21:00)
[2017-04-23] MEDS: ACIDOPHILUS/BULGARICUS 1 EACH TAB.CHEW GT SCH ×3 (08:36→17:00)
[2017-04-23] MEDS: ESCITALOPRAM OXALATE (10 MG) 10 MG TABLET GT SCH (08:36)
[2017-04-23] MEDS: METOPROLOL TARTRATE 25 MG TABLET GT SCH ×2 (08:37→17:00)
[2017-04-23] MEDS: METHADONE HCL 10 MG TABLET GT SCH (08:38)
[2017-04-23] MEDS: GABAPENTIN 300 MG CAPSULE GT SCH ×3 (08:38→17:00)
[2017-04-23] MEDS: CALCIUM CARBONATE 500 MG TAB.CHEW GT SCH ×3 (08:39→17:00)
[2017-04-23] MEDS: HYDROGEL DRESSING 90 GM TUBE TP SCH ×2 (08:39→21:00)
[2017-04-23] MEDS: FAMOTIDINE (20 MG) 20 MG TABLET GT SCH ×2 (08:39→21:00)
[2017-04-23] MEDS: CADEXOMER IODINE 40 GM TUBE TP SCH ×6 (08:39→21:00)
[2017-04-23] MEDS: CALCITRIOL 0.25 MCG CAPSULE PO SCH (08:39)
[2017-04-23] MEDS: ASCORBIC ACID 500 MG TABLET GT SCH ×2 (08:39→17:00)
[2017-04-23] MEDS: MINERAL OIL/PETROL OINT 396 GM JAR TP SCH ×2 (08:39→21:00)
[2017-04-23] MEDS: CLOPIDOGREL BISULFATE 75 MG TABLET GT SCH (08:39)
[2017-04-23] MEDS: HYDROGEN PEROXIDE 480 ML BOTTLE TP SCH ×2 (08:39→21:00)
[2017-04-23] MEDS: HYDROCODONE/APAP 10/325MG 1 EA TABLET GT SCH ×2 (09:00→21:00)
[2017-04-23 19:28] VITALS: BP 129/80
[2017-04-23] MEDS: CRANBERRY GT SCH (21:00)
[2017-04-23] MEDS: LIDOCAINE 5% (PATCH) 1 EA PATCH TP SCH (21:00)
[2017-04-23] MEDS: ENOXAPARIN SODIUM 40 MG/0.4 ML DISP.SYRIN SQ SCH (21:00)
[2017-04-23] MEDS: POLYETHYLENE GLYCOL 3350 17 GM POWD.PACK GT SCH (21:00)
[2017-04-23] MEDS: PROSOURCE / PROSTAT (PYXIS) 30 ML UDC GT SCH (21:00)
[2017-04-23] MEDS: MULTIVIT, IRON, MIN NO. 8, FA 1 TAB GT SCH (22:27)
[2017-04-23] MEDS: ATORVASTATIN CALCIUM 20MG TABLET GT SCH (22:39)
[2017-04-24] MEDS: OXYCODONE GT PRN (00:10)
[2017-04-24] MEDS: APAP GT PRN (00:10)
--- NOTE | 2017-04-24 00:10 | NUR ---
NURSES NOTES: AT AROUND 0010, PT C/O SEVERE GEN BODY PAIN, GIVEN PTS PRN MED 5/325 MG PERCOCET, CONTINUE TO MONITOR PT FOR ANY C/O PAIN. Addendum: 04/24/17 at 0338 by LUCY SALCIDO LVN AFTER AN HR , PT IS NOTED SLEEPING QUIETLY, PRN MED EFFECTIVE.
[2017-04-24] MEDS: CHLORHEXIDINE GLUCONATE 15 ML UDC MM SCH ×2 (07:00→17:00)
[2017-04-24 08:00] VITALS: BP 111/59
[2017-04-24] MEDS: METOPROLOL TARTRATE 25 MG TABLET GT SCH ×2 (08:35→17:00)
[2017-04-24] MEDS: ESCITALOPRAM OXALATE (10 MG) 10 MG TABLET GT SCH (08:35)
[2017-04-24] MEDS: BACLOFEN (10 MG) 10 MG TABLET GT SCH ×4 (08:35→21:00)
[2017-04-24] MEDS: ACIDOPHILUS/BULGARICUS 1 EACH TAB.CHEW GT SCH ×3 (08:35→17:00)
[2017-04-24] MEDS: CALCIUM CARBONATE 500 MG TAB.CHEW GT SCH ×3 (08:36→17:00)
[2017-04-24] MEDS: GABAPENTIN 300 MG CAPSULE GT SCH ×3 (08:36→17:00)
[2017-04-24] MEDS: CLOPIDOGREL BISULFATE 75 MG TABLET GT SCH (08:36)
[2017-04-24] MEDS: CALCITRIOL 0.25 MCG CAPSULE PO SCH (08:36)
[2017-04-24] MEDS: ASCORBIC ACID 500 MG TABLET GT SCH ×2 (08:36→17:00)
[2017-04-24] MEDS: FAMOTIDINE (20 MG) 20 MG TABLET GT SCH ×2 (08:36→21:00)
[2017-04-24] MEDS: METHADONE HCL 10 MG TABLET GT SCH (08:36)
--- NOTE | 2017-04-24 11:00 | NUR ---
Called Dr. Gonzalez's office to remind him of routine trach tube change. Left message with Nasima.
[2017-04-24] MEDS: HYDROCODONE/APAP 10/325MG 1 EA TABLET GT SCH ×2 (14:00→21:00)
[2017-04-24] MEDS: MINERAL OIL/PETROL OINT 396 GM JAR TP SCH ×2 (15:30→21:00)
[2017-04-24] MEDS: CADEXOMER IODINE 40 GM TUBE TP SCH ×6 (15:30→21:00)
[2017-04-24] MEDS: HYDROGEL DRESSING 90 GM TUBE TP SCH ×2 (15:30→21:00)
[2017-04-24] MEDS: HYDROGEN PEROXIDE 480 ML BOTTLE TP SCH ×2 (15:30→21:00)
--- NOTE | 2017-04-24 16:40 | NUR ---
Relayed urine culture result to Dr. Walker. Pt afebrile 98.6, no episodes of confusion, urine noted with some sediments. Encouraged water intake.
[2017-04-24 20:04] VITALS: BP 97/57
[2017-04-24] MEDS: CRANBERRY GT SCH (21:00)
[2017-04-24] MEDS: PROSOURCE / PROSTAT (PYXIS) 30 ML UDC GT SCH (21:00)
[2017-04-24] MEDS: ENOXAPARIN SODIUM 40 MG/0.4 ML DISP.SYRIN SQ SCH (21:00)
[2017-04-24] MEDS: POLYETHYLENE GLYCOL 3350 17 GM POWD.PACK GT SCH (21:00)
[2017-04-24] MEDS: LIDOCAINE 5% (PATCH) 1 EA PATCH TP SCH (21:00)
[2017-04-24] MEDS: MULTIVIT, IRON, MIN NO. 8, FA 1 TAB GT SCH (22:36)
[2017-04-24] MEDS: ATORVASTATIN CALCIUM 20MG TABLET GT SCH (22:52)
[2017-04-25] MEDS: CHLORHEXIDINE GLUCONATE 15 ML UDC MM SCH ×2 (06:28→17:02)
[2017-04-25 07:37] VITALS: BP 111/63
[2017-04-25] MEDS: ESCITALOPRAM OXALATE (10 MG) 10 MG TABLET GT SCH (08:35)
[2017-04-25] MEDS: ACIDOPHILUS/BULGARICUS 1 EACH TAB.CHEW GT SCH ×3 (08:35→17:02)
[2017-04-25] MEDS: BACLOFEN (10 MG) 10 MG TABLET GT SCH ×4 (08:35→21:00)
[2017-04-25] MEDS: ASCORBIC ACID 500 MG TABLET GT SCH ×2 (08:36→17:02)
[2017-04-25] MEDS: CALCIUM CARBONATE 500 MG TAB.CHEW GT SCH ×3 (08:36→17:02)
[2017-04-25] MEDS: CLOPIDOGREL BISULFATE 75 MG TABLET GT SCH (08:36)
[2017-04-25] MEDS: METOPROLOL TARTRATE 25 MG TABLET GT SCH ×2 (08:36→17:02)
[2017-04-25] MEDS: GABAPENTIN 300 MG CAPSULE GT SCH ×3 (08:36→17:02)
[2017-04-25] MEDS: METHADONE HCL 10 MG TABLET GT SCH (08:36)
[2017-04-25] MEDS: FAMOTIDINE (20 MG) 20 MG TABLET GT SCH ×2 (08:36→21:00)
[2017-04-25] MEDS: CALCITRIOL 0.25 MCG CAPSULE PO SCH (08:36)
[2017-04-25] MEDS: HYDROCODONE/APAP 10/325MG 1 EA TABLET GT SCH ×2 (11:00→21:00)
[2017-04-25] MEDS: MINERAL OIL/PETROL OINT 396 GM JAR TP SCH ×2 (12:00→21:00)
[2017-04-25] MEDS: HYDROGEN PEROXIDE 480 ML BOTTLE TP SCH ×2 (12:00→21:00)
[2017-04-25] MEDS: CADEXOMER IODINE 40 GM TUBE TP SCH ×6 (12:00→21:00)
[2017-04-25] MEDS: HYDROGEL DRESSING 90 GM TUBE TP SCH ×2 (12:00→21:00)
[2017-04-25 20:25] VITALS: BP 100/58
[2017-04-25] MEDS: POLYETHYLENE GLYCOL 3350 17 GM POWD.PACK GT SCH (21:00)
[2017-04-25] MEDS: LIDOCAINE 5% (PATCH) 1 EA PATCH TP SCH (21:00)
[2017-04-25] MEDS: CRANBERRY GT SCH (21:00)
[2017-04-25] MEDS: PROSOURCE / PROSTAT (PYXIS) 30 ML UDC GT SCH (21:00)
[2017-04-25] MEDS: ENOXAPARIN SODIUM 40 MG/0.4 ML DISP.SYRIN SQ SCH (21:00)
[2017-04-25] MEDS: MULTIVIT, IRON, MIN NO. 8, FA 1 TAB GT SCH (22:20)
[2017-04-25] MEDS: ATORVASTATIN CALCIUM 20MG TABLET GT SCH (22:25)
[2017-04-26] MEDS: CHLORHEXIDINE GLUCONATE 15 ML UDC MM SCH ×2 (06:06→17:57)
[2017-04-26 07:38] VITALS: BP 109/76
[2017-04-26] MEDS: ACIDOPHILUS/BULGARICUS 1 EACH TAB.CHEW GT SCH ×3 (08:59→17:56)
[2017-04-26] MEDS: BACLOFEN (10 MG) 10 MG TABLET GT SCH ×4 (08:59→21:42)
[2017-04-26] MEDS: METOPROLOL TARTRATE 25 MG TABLET GT SCH ×2 (08:59→17:57)
[2017-04-26] MEDS: ESCITALOPRAM OXALATE (10 MG) 10 MG TABLET GT SCH (08:59)
[2017-04-26] MEDS: METHADONE HCL 10 MG TABLET GT SCH (08:59)
[2017-04-26] MEDS: GABAPENTIN 300 MG CAPSULE GT SCH ×3 (08:59→17:57)
[2017-04-26] MEDS: CLOPIDOGREL BISULFATE 75 MG TABLET GT SCH (09:00)
[2017-04-26] MEDS: CALCITRIOL 0.25 MCG CAPSULE PO SCH (09:00)
[2017-04-26] MEDS: CALCIUM CARBONATE 500 MG TAB.CHEW GT SCH ×3 (09:00→17:57)
[2017-04-26] MEDS: ASCORBIC ACID 500 MG TABLET GT SCH ×2 (09:00→17:57)
[2017-04-26] MEDS: FAMOTIDINE (20 MG) 20 MG TABLET GT SCH ×2 (09:00→21:42)
[2017-04-26] MEDS: MINERAL OIL/PETROL OINT 396 GM JAR TP SCH ×2 (09:00→21:43)
[2017-04-26] MEDS: HYDROCODONE/APAP 10/325MG 1 EA TABLET GT SCH ×2 (10:30→21:42)
[2017-04-26] MEDS: CADEXOMER IODINE 40 GM TUBE TP SCH ×6 (11:10→21:43)
[2017-04-26] MEDS: HYDROGEL DRESSING 90 GM TUBE TP SCH ×2 (11:10→21:43)
[2017-04-26] MEDS: HYDROGEN PEROXIDE 480 ML BOTTLE TP SCH ×2 (11:10→21:43)
--- NOTE | 2017-04-26 15:38 | NUR ---
Seen and examined by Dr. Walker, NNO order given.
--- NOTE | 2017-04-26 17:30 | NUR ---
Place a call to Dr. Gonzalez's (ENT) office spoke with Luz Marina who said that Dr. Gonzalez is at his [place] [facility]. Left a message to Luz Marina to relay a message regarding monthly trach change for patient. Called [place] office , spoke with Chavo and requested to speak to Dr. Gonzalez but he is seeing a patient at this time, He will relay the message to . Endorsed to follow-up in AM.
[2017-04-26 19:58] VITALS: BP 99/55
[2017-04-26] MEDS: CRANBERRY GT SCH (21:41)
[2017-04-26] MEDS: PROSOURCE / PROSTAT (PYXIS) 30 ML UDC GT SCH (21:42)
[2017-04-26] MEDS: MULTIVIT, IRON, MIN NO. 8, FA 1 TAB GT SCH (21:42)
[2017-04-26] MEDS: POLYETHYLENE GLYCOL 3350 17 GM POWD.PACK GT SCH (21:42)
[2017-04-26] MEDS: ENOXAPARIN SODIUM 40 MG/0.4 ML DISP.SYRIN SQ SCH (21:42)
[2017-04-26] MEDS: ATORVASTATIN CALCIUM 20MG TABLET GT SCH (21:43)
[2017-04-26] MEDS: LIDOCAINE 5% (PATCH) 1 EA PATCH TP SCH (21:43)
[2017-04-27] MEDS: METHOCARBAMOL (750MG) 750 MG TABLET GT PRN (01:58)
[2017-04-27] MEDS: CHLORHEXIDINE GLUCONATE 15 ML UDC MM SCH ×2 (07:00→17:59)
[2017-04-27 08:16] VITALS: BP 132/86
[2017-04-27] MEDS: METOPROLOL TARTRATE 25 MG TABLET GT SCH ×2 (09:00→17:59)
--- NOTE | 2017-04-27 09:30 | NUR ---
Spoke with Darryl from Dr. Gonzalez's office. Follow up done on when Dr. Gonzalez will come for trach change. Per Darryl, Dr. Gonzalez will change pt's trach next week.
[2017-04-27] MEDS: BACLOFEN (10 MG) 10 MG TABLET GT SCH ×4 (09:52→20:12)
[2017-04-27] MEDS: ESCITALOPRAM OXALATE (10 MG) 10 MG TABLET GT SCH (09:52)
[2017-04-27] MEDS: ACIDOPHILUS/BULGARICUS 1 EACH TAB.CHEW GT SCH ×3 (09:52→17:58)
[2017-04-27] MEDS: HYDROCODONE/APAP 10/325MG 1 EA TABLET GT SCH ×2 (09:53→20:12)
[2017-04-27] MEDS: GABAPENTIN 300 MG CAPSULE GT SCH ×3 (09:53→17:59)
[2017-04-27] MEDS: CALCITRIOL 0.25 MCG CAPSULE PO SCH (09:53)
[2017-04-27] MEDS: CALCIUM CARBONATE 500 MG TAB.CHEW GT SCH ×3 (09:53→17:59)
[2017-04-27] MEDS: METHADONE HCL 10 MG TABLET GT SCH (09:53)
[2017-04-27] MEDS: CLOPIDOGREL BISULFATE 75 MG TABLET GT SCH (09:53)
[2017-04-27] MEDS: FAMOTIDINE (20 MG) 20 MG TABLET GT SCH ×2 (09:53→20:12)
[2017-04-27] MEDS: ASCORBIC ACID 500 MG TABLET GT SCH ×2 (09:53→17:59)
[2017-04-27] MEDS: CADEXOMER IODINE 40 GM TUBE TP SCH ×6 (10:30→20:13)
[2017-04-27] MEDS: MINERAL OIL/PETROL OINT 396 GM JAR TP SCH ×2 (10:30→20:13)
[2017-04-27] MEDS: HYDROGEL DRESSING 90 GM TUBE TP SCH ×2 (10:30→20:13)
[2017-04-27] MEDS: HYDROGEN PEROXIDE 480 ML BOTTLE TP SCH ×2 (10:30→20:13)
--- NOTE | 2017-04-27 14:22 | NUR ---
SW assisted resident in speaking to his friend. Resident was excited about his birthday and enjoyed eating pizza for lunch. Resident was in a good mood and was smiling.
[2017-04-27] MEDS: ALBUTEROL HALF STRENGTH 1.25 MG/3 ML VIAL.NEB NEB PRN (18:17)
[2017-04-27] MEDS: IPRATROPIUM NEB FS 0.5 MG/2.5 ML AMPUL.NEB NEB PRN (18:17)
[2017-04-27] MEDS: PROSOURCE / PROSTAT (PYXIS) 30 ML UDC GT SCH (20:12)
[2017-04-27] MEDS: POLYETHYLENE GLYCOL 3350 17 GM POWD.PACK GT SCH (20:12)
[2017-04-27] MEDS: CRANBERRY GT SCH (20:12)
[2017-04-27] MEDS: MULTIVIT, IRON, MIN NO. 8, FA 1 TAB GT SCH (20:12)
[2017-04-27] MEDS: ENOXAPARIN SODIUM 40 MG/0.4 ML DISP.SYRIN SQ SCH (20:12)
[2017-04-27] MEDS: LIDOCAINE 5% (PATCH) 1 EA PATCH TP SCH (20:13)
[2017-04-27] MEDS: ATORVASTATIN CALCIUM 20MG TABLET GT SCH (21:08)
[2017-04-27 21:15] VITALS: BP 118/78
[2017-04-28] MEDS: CHLORHEXIDINE GLUCONATE 15 ML UDC MM SCH ×2 (07:00→17:00)
--- NOTE | 2017-04-28 07:40 | NUR ---
Social Service section of [facility] (annual) completed. Resident is alert and was able to answer all questions asked. Resident understands need for placement at this time. Ymynjh-zu-qsb Vilma remains his contact and she is involved in his care. Resident able to make his needs known. Resident was seen by the cut off sawyer shingle mill Dr. De La Vega on 04/21/2017, by the information technology account manager on 09/30/2016, and by the dentist on 12/12/2016 for his dental cleaning. He is able to make his needs known and can communicate when he is in pain.
[2017-04-28 07:51] VITALS: BP 110/69
[2017-04-28] MEDS: METOPROLOL TARTRATE 25 MG TABLET GT SCH ×2 (09:20→17:00)
[2017-04-28] MEDS: ESCITALOPRAM OXALATE (10 MG) 10 MG TABLET GT SCH (09:20)
[2017-04-28] MEDS: ACIDOPHILUS/BULGARICUS 1 EACH TAB.CHEW GT SCH ×3 (09:20→17:00)
[2017-04-28] MEDS: BACLOFEN (10 MG) 10 MG TABLET GT SCH ×4 (09:20→20:49)
[2017-04-28] MEDS: GABAPENTIN 300 MG CAPSULE GT SCH ×3 (09:21→17:00)
[2017-04-28] MEDS: CLOPIDOGREL BISULFATE 75 MG TABLET GT SCH (09:21)
[2017-04-28] MEDS: CALCIUM CARBONATE 500 MG TAB.CHEW GT SCH ×3 (09:21→17:00)
[2017-04-28] MEDS: CALCITRIOL 0.25 MCG CAPSULE PO SCH (09:21)
[2017-04-28] MEDS: METHADONE HCL 10 MG TABLET GT SCH (09:21)
[2017-04-28] MEDS: FAMOTIDINE (20 MG) 20 MG TABLET GT SCH ×2 (09:21→20:49)
[2017-04-28] MEDS: HYDROCODONE/APAP 10/325MG 1 EA TABLET GT SCH ×2 (09:21→20:49)
[2017-04-28] MEDS: ASCORBIC ACID 500 MG TABLET GT SCH ×2 (09:21→17:00)
[2017-04-28] MEDS: HYDROGEN PEROXIDE 480 ML BOTTLE TP SCH ×2 (10:00→20:50)
[2017-04-28] MEDS: MINERAL OIL/PETROL OINT 396 GM JAR TP SCH ×2 (10:00→20:50)
[2017-04-28] MEDS: HYDROGEL DRESSING 90 GM TUBE TP SCH ×2 (10:00→20:50)
[2017-04-28] MEDS: CADEXOMER IODINE 40 GM TUBE TP SCH ×6 (10:00→20:50)
--- NOTE | 2017-04-28 14:40 | NUR ---
INTERDISCIPLINARY TEAM CONFERENCE (IDT) was held today. Resident's mwpagd-eh-cya Kishan attended in person. Dr. Ugarte and the interdisciplinary team reviewed the current plan of care in detail. New orders were reviewed with no new orders given.
[2017-04-28] MEDS: MAGNESIUM HYDROXIDE 30 ML UDC GT PRN (18:25)
[2017-04-28] MEDS: APAP GT PRN (18:25)
[2017-04-28] MEDS: OXYCODONE GT PRN (18:25)
[2017-04-28 19:48] VITALS: BP 109/72
[2017-04-28] MEDS: PROSOURCE / PROSTAT (PYXIS) 30 ML UDC GT SCH (20:49)
[2017-04-28] MEDS: POLYETHYLENE GLYCOL 3350 17 GM POWD.PACK GT SCH (20:49)
[2017-04-28] MEDS: MULTIVIT, IRON, MIN NO. 8, FA 1 TAB GT SCH (20:49)
[2017-04-28] MEDS: CRANBERRY GT SCH (20:49)
[2017-04-28] MEDS: ENOXAPARIN SODIUM 40 MG/0.4 ML DISP.SYRIN SQ SCH (20:49)
[2017-04-28] MEDS: LIDOCAINE 5% (PATCH) 1 EA PATCH TP SCH (20:50)
[2017-04-28] MEDS: ATORVASTATIN CALCIUM 20MG TABLET GT SCH (21:19)
[2017-04-29] MEDS: CHLORHEXIDINE GLUCONATE 15 ML UDC MM SCH ×2 (07:00→17:00)
[2017-04-29 07:54] VITALS: BP 118/70
[2017-04-29] MEDS: ESCITALOPRAM OXALATE (10 MG) 10 MG TABLET GT SCH (09:25)
[2017-04-29] MEDS: BACLOFEN (10 MG) 10 MG TABLET GT SCH ×4 (09:25→20:13)
[2017-04-29] MEDS: ACIDOPHILUS/BULGARICUS 1 EACH TAB.CHEW GT SCH ×3 (09:25→17:00)
[2017-04-29] MEDS: METOPROLOL TARTRATE 25 MG TABLET GT SCH ×2 (09:25→17:00)
[2017-04-29] MEDS: CALCIUM CARBONATE 500 MG TAB.CHEW GT SCH ×3 (09:26→17:00)
[2017-04-29] MEDS: ASCORBIC ACID 500 MG TABLET GT SCH ×2 (09:26→17:00)
[2017-04-29] MEDS: HYDROCODONE/APAP 10/325MG 1 EA TABLET GT SCH ×2 (09:26→20:13)
[2017-04-29] MEDS: CALCITRIOL 0.25 MCG CAPSULE PO SCH (09:26)
[2017-04-29] MEDS: GABAPENTIN 300 MG CAPSULE GT SCH ×3 (09:26→17:00)
[2017-04-29] MEDS: METHADONE HCL 10 MG TABLET GT SCH (09:26)
[2017-04-29] MEDS: FAMOTIDINE (20 MG) 20 MG TABLET GT SCH ×2 (09:26→20:13)
[2017-04-29] MEDS: CLOPIDOGREL BISULFATE 75 MG TABLET GT SCH (09:26)
[2017-04-29] MEDS: HYDROGEN PEROXIDE 480 ML BOTTLE TP SCH ×2 (10:00→20:14)
[2017-04-29] MEDS: CADEXOMER IODINE 40 GM TUBE TP SCH ×6 (10:00→20:14)
[2017-04-29] MEDS: HYDROGEL DRESSING 90 GM TUBE TP SCH ×2 (10:00→20:14)
[2017-04-29] MEDS: MINERAL OIL/PETROL OINT 396 GM JAR TP SCH ×2 (10:00→20:14)
[2017-04-29] MEDS: HYDROCODONE/APAP 5/325MG 1 EACH TABLET GT PRN ×2 (13:15)
[2017-04-29] MEDS: PROSOURCE / PROSTAT (PYXIS) 30 ML UDC GT SCH (20:13)
[2017-04-29] MEDS: MULTIVIT, IRON, MIN NO. 8, FA 1 TAB GT SCH (20:13)
[2017-04-29] MEDS: CRANBERRY GT SCH (20:13)
[2017-04-29] MEDS: ENOXAPARIN SODIUM 40 MG/0.4 ML DISP.SYRIN SQ SCH (20:13)
[2017-04-29] MEDS: POLYETHYLENE GLYCOL 3350 17 GM POWD.PACK GT SCH (20:13)
[2017-04-29] MEDS: LIDOCAINE 5% (PATCH) 1 EA PATCH TP SCH (20:14)
[2017-04-29] MEDS: ATORVASTATIN CALCIUM 20MG TABLET GT SCH (21:12)
[2017-04-29] MEDS: MAGNESIUM HYDROXIDE 30 ML UDC GT PRN (23:27)
[2017-04-30] MEDS: METHOCARBAMOL (750MG) 750 MG TABLET GT PRN (05:30)
[2017-04-30] MEDS: CHLORHEXIDINE GLUCONATE 15 ML UDC MM SCH ×2 (07:00→17:07)
[2017-04-30 07:52] VITALS: BP 109/68
[2017-04-30] MEDS: BACLOFEN (10 MG) 10 MG TABLET GT SCH ×4 (08:48→21:00)
[2017-04-30] MEDS: METOPROLOL TARTRATE 25 MG TABLET GT SCH ×2 (08:48→17:06)
[2017-04-30] MEDS: ESCITALOPRAM OXALATE (10 MG) 10 MG TABLET GT SCH (08:48)
[2017-04-30] MEDS: ACIDOPHILUS/BULGARICUS 1 EACH TAB.CHEW GT SCH ×3 (08:48→17:06)
[2017-04-30] MEDS: GABAPENTIN 300 MG CAPSULE GT SCH ×3 (08:49→17:06)
[2017-04-30] MEDS: CALCITRIOL 0.25 MCG CAPSULE PO SCH (08:49)
[2017-04-30] MEDS: FAMOTIDINE (20 MG) 20 MG TABLET GT SCH ×2 (08:49→21:00)
[2017-04-30] MEDS: METHADONE HCL 10 MG TABLET GT SCH (08:49)
[2017-04-30] MEDS: CALCIUM CARBONATE 500 MG TAB.CHEW GT SCH ×3 (08:49→17:06)
[2017-04-30] MEDS: CLOPIDOGREL BISULFATE 75 MG TABLET GT SCH (08:49)
[2017-04-30] MEDS: ASCORBIC ACID 500 MG TABLET GT SCH ×2 (08:49→17:06)
[2017-04-30] MEDS: MINERAL OIL/PETROL OINT 396 GM JAR TP SCH ×2 (09:00→21:00)
[2017-04-30] MEDS: HYDROGEN PEROXIDE 480 ML BOTTLE TP SCH ×2 (09:00→21:00)
[2017-04-30] MEDS: CADEXOMER IODINE 40 GM TUBE TP SCH ×6 (09:00→21:00)
[2017-04-30] MEDS: HYDROCODONE/APAP 10/325MG 1 EA TABLET GT SCH ×2 (09:00→21:00)
[2017-04-30] MEDS: HYDROGEL DRESSING 90 GM TUBE TP SCH ×2 (09:00→21:00)
[2017-04-30] MEDS: HYDROCODONE/APAP 5/325MG 1 EACH TABLET GT PRN (17:00)
[2017-04-30 19:20] VITALS: BP 106/70
[2017-04-30] MEDS: CRANBERRY GT SCH (21:00)
[2017-04-30] MEDS: PROSOURCE / PROSTAT (PYXIS) 30 ML UDC GT SCH (21:00)
[2017-04-30] MEDS: ENOXAPARIN SODIUM 40 MG/0.4 ML DISP.SYRIN SQ SCH (21:00)
[2017-04-30] MEDS: MULTIVIT, IRON, MIN NO. 8, FA 1 TAB GT SCH (21:00)
[2017-04-30] MEDS: LIDOCAINE 5% (PATCH) 1 EA PATCH TP SCH (21:00)
[2017-04-30] MEDS: POLYETHYLENE GLYCOL 3350 17 GM POWD.PACK GT SCH (21:00)
[2017-04-30] MEDS: ATORVASTATIN CALCIUM 20MG TABLET GT SCH (22:22)
[2017-05-01] MEDS: CHLORHEXIDINE GLUCONATE 15 ML UDC MM SCH ×2 (07:00→17:00)
[2017-05-01 07:41] VITALS: BP 124/67
[2017-05-01] MEDS: METOPROLOL TARTRATE 25 MG TABLET GT SCH ×2 (08:31→17:00)
[2017-05-01] MEDS: ESCITALOPRAM OXALATE (10 MG) 10 MG TABLET GT SCH (08:31)
[2017-05-01] MEDS: BACLOFEN (10 MG) 10 MG TABLET GT SCH ×4 (08:31→21:00)
[2017-05-01] MEDS: ACIDOPHILUS/BULGARICUS 1 EACH TAB.CHEW GT SCH ×3 (08:31→17:00)
[2017-05-01] MEDS: CALCITRIOL 0.25 MCG CAPSULE PO SCH (08:32)
[2017-05-01] MEDS: GABAPENTIN 300 MG CAPSULE GT SCH ×3 (08:32→17:00)
[2017-05-01] MEDS: CALCIUM CARBONATE 500 MG TAB.CHEW GT SCH ×3 (08:32→17:00)
[2017-05-01] MEDS: ASCORBIC ACID 500 MG TABLET GT SCH ×2 (08:32→17:00)
[2017-05-01] MEDS: FAMOTIDINE (20 MG) 20 MG TABLET GT SCH ×2 (08:32→21:00)
[2017-05-01] MEDS: CLOPIDOGREL BISULFATE 75 MG TABLET GT SCH (08:32)
[2017-05-01] MEDS: METHADONE HCL 10 MG TABLET GT SCH (08:32)
[2017-05-01] MEDS: MINERAL OIL/PETROL OINT 396 GM JAR TP SCH ×2 (09:00→21:00)
[2017-05-01] MEDS: HYDROCODONE/APAP 10/325MG 1 EA TABLET GT SCH ×2 (14:00→21:00)
[2017-05-01] MEDS: HYDROGEL DRESSING 90 GM TUBE TP SCH ×2 (14:30→21:00)
[2017-05-01] MEDS: HYDROGEN PEROXIDE 480 ML BOTTLE TP SCH ×2 (14:30→21:00)
[2017-05-01] MEDS: CADEXOMER IODINE 40 GM TUBE TP SCH ×6 (14:30→21:00)
[2017-05-01 20:28] VITALS: BP 99/60
[2017-05-01] MEDS: ENOXAPARIN SODIUM 40 MG/0.4 ML DISP.SYRIN SQ SCH (21:00)
[2017-05-01] MEDS: PROSOURCE / PROSTAT (PYXIS) 30 ML UDC GT SCH (21:00)
[2017-05-01] MEDS: LIDOCAINE 5% (PATCH) 1 EA PATCH TP SCH (21:00)
[2017-05-01] MEDS: CRANBERRY GT SCH (21:00)
[2017-05-01] MEDS: POLYETHYLENE GLYCOL 3350 17 GM POWD.PACK GT SCH (21:00)
[2017-05-01] MEDS: MULTIVIT, IRON, MIN NO. 8, FA 1 TAB GT SCH (22:26)
[2017-05-01] MEDS: ATORVASTATIN CALCIUM 20MG TABLET GT SCH (22:28)
[2017-05-02] MEDS: CHLORHEXIDINE GLUCONATE 15 ML UDC MM SCH ×2 (06:10→17:41)
[2017-05-02 08:06] VITALS: BP 133/68
[2017-05-02] MEDS: ESCITALOPRAM OXALATE (10 MG) 10 MG TABLET GT SCH (09:13)
[2017-05-02] MEDS: BACLOFEN (10 MG) 10 MG TABLET GT SCH ×4 (09:13→21:00)
[2017-05-02] MEDS: METOPROLOL TARTRATE 25 MG TABLET GT SCH ×2 (09:13→17:41)
[2017-05-02] MEDS: ACIDOPHILUS/BULGARICUS 1 EACH TAB.CHEW GT SCH ×3 (09:13→17:38)
[2017-05-02] MEDS: FAMOTIDINE (20 MG) 20 MG TABLET GT SCH ×2 (09:14→21:00)
[2017-05-02] MEDS: CALCIUM CARBONATE 500 MG TAB.CHEW GT SCH ×3 (09:14→17:41)
[2017-05-02] MEDS: METHADONE HCL 10 MG TABLET GT SCH (09:14)
[2017-05-02] MEDS: GABAPENTIN 300 MG CAPSULE GT SCH ×3 (09:14→17:41)
[2017-05-02] MEDS: CALCITRIOL 0.25 MCG CAPSULE PO SCH (09:14)
[2017-05-02] MEDS: CLOPIDOGREL BISULFATE 75 MG TABLET GT SCH (09:14)
[2017-05-02] MEDS: ASCORBIC ACID 500 MG TABLET GT SCH ×2 (09:14→17:41)
[2017-05-02] MEDS: HYDROCODONE/APAP 10/325MG 1 EA TABLET GT SCH ×2 (11:15→21:00)
[2017-05-02] MEDS: HYDROGEN PEROXIDE 480 ML BOTTLE TP SCH ×2 (12:00→21:00)
[2017-05-02] MEDS: CADEXOMER IODINE 40 GM TUBE TP SCH ×6 (12:00→21:00)
[2017-05-02] MEDS: HYDROGEL DRESSING 90 GM TUBE TP SCH ×2 (12:00→21:00)
[2017-05-02] MEDS: MINERAL OIL/PETROL OINT 396 GM JAR TP SCH ×2 (12:00→21:00)
[2017-05-02 20:52] VITALS: BP 107/60
[2017-05-02] MEDS: CRANBERRY GT SCH (21:00)
[2017-05-02] MEDS: LIDOCAINE 5% (PATCH) 1 EA PATCH TP SCH (21:00)
[2017-05-02] MEDS: PROSOURCE / PROSTAT (PYXIS) 30 ML UDC GT SCH (21:00)
[2017-05-02] MEDS: POLYETHYLENE GLYCOL 3350 17 GM POWD.PACK GT SCH (21:00)
[2017-05-02] MEDS: ENOXAPARIN SODIUM 40 MG/0.4 ML DISP.SYRIN SQ SCH (21:00)
[2017-05-02] MEDS: MULTIVIT, IRON, MIN NO. 8, FA 1 TAB GT SCH (22:25)
[2017-05-02] MEDS: ATORVASTATIN CALCIUM 20MG TABLET GT SCH (22:28)
[2017-05-03] MEDS: OXYCODONE GT PRN (01:28)
[2017-05-03] MEDS: APAP GT PRN (01:28)
--- NOTE | 2017-05-03 01:38 | NUR ---
pt is c/o severe back pain, given his prn med percocet 5/325 mg, continue to monitor pt for severe pain and re ck pt in an hour. Addendum: 05/03/17 at 0645 by LUCY SALCIDO LVN pt was re ck, he is noted to be deeply sleeping, prn med effective.
[2017-05-03] MEDS: CHLORHEXIDINE GLUCONATE 15 ML UDC MM SCH ×2 (06:24→16:47)
[2017-05-03 08:00] VITALS: BP 116/65
[2017-05-03] MEDS: HYDROCODONE/APAP 10/325MG 1 EA TABLET GT SCH ×2 (09:00→21:36)
[2017-05-03] MEDS: METHADONE HCL 10 MG TABLET GT SCH (09:35)
[2017-05-03] MEDS: BACLOFEN (10 MG) 10 MG TABLET GT SCH ×4 (09:35→21:35)
[2017-05-03] MEDS: FAMOTIDINE (20 MG) 20 MG TABLET GT SCH ×2 (09:35→21:36)
[2017-05-03] MEDS: ESCITALOPRAM OXALATE (10 MG) 10 MG TABLET GT SCH (09:35)
[2017-05-03] MEDS: ACIDOPHILUS/BULGARICUS 1 EACH TAB.CHEW GT SCH ×3 (09:35→16:47)
[2017-05-03] MEDS: METOPROLOL TARTRATE 25 MG TABLET GT SCH ×2 (09:35→16:47)
[2017-05-03] MEDS: GABAPENTIN 300 MG CAPSULE GT SCH ×3 (09:35→16:47)
[2017-05-03] MEDS: CADEXOMER IODINE 40 GM TUBE TP SCH ×6 (09:37→21:37)
[2017-05-03] MEDS: HYDROGEL DRESSING 90 GM TUBE TP SCH ×2 (09:37→21:37)
[2017-05-03] MEDS: ASCORBIC ACID 500 MG TABLET GT SCH ×2 (09:37→16:47)
[2017-05-03] MEDS: CALCITRIOL 0.25 MCG CAPSULE PO SCH (09:37)
[2017-05-03] MEDS: HYDROGEN PEROXIDE 480 ML BOTTLE TP SCH ×2 (09:37→21:37)
[2017-05-03] MEDS: CALCIUM CARBONATE 500 MG TAB.CHEW GT SCH ×3 (09:37→16:47)
[2017-05-03] MEDS: CLOPIDOGREL BISULFATE 75 MG TABLET GT SCH (09:37)
[2017-05-03] MEDS: MINERAL OIL/PETROL OINT 396 GM JAR TP SCH ×2 (09:37→21:37)
[2017-05-03 20:25] VITALS: BP 116/74
[2017-05-03] MEDS: CRANBERRY GT SCH (21:35)
[2017-05-03] MEDS: POLYETHYLENE GLYCOL 3350 17 GM POWD.PACK GT SCH (21:35)
[2017-05-03] MEDS: MULTIVIT, IRON, MIN NO. 8, FA 1 TAB GT SCH (21:36)
[2017-05-03] MEDS: PROSOURCE / PROSTAT (PYXIS) 30 ML UDC GT SCH (21:36)
[2017-05-03] MEDS: ENOXAPARIN SODIUM 40 MG/0.4 ML DISP.SYRIN SQ SCH (21:37)
[2017-05-03] MEDS: LIDOCAINE 5% (PATCH) 1 EA PATCH TP SCH (21:37)
[2017-05-03] MEDS: ATORVASTATIN CALCIUM 20MG TABLET GT SCH (21:37)
[2017-05-04] MEDS: METHOCARBAMOL (750MG) 750 MG TABLET GT PRN (01:44)
[2017-05-04] MEDS: CHLORHEXIDINE GLUCONATE 15 ML UDC MM SCH ×2 (07:00→17:00)
[2017-05-04 07:45] VITALS: BP 126/72
[2017-05-04] MEDS ORDERED: TUBERCULIN,PURIF.PROT.DERIV. 5 TU/0.1 ML VIAL ID SCH (09:00)
[2017-05-04] MEDS: METHADONE HCL 10 MG TABLET GT SCH (09:21)
[2017-05-04] MEDS: ACIDOPHILUS/BULGARICUS 1 EACH TAB.CHEW GT SCH ×3 (09:50→17:00)
[2017-05-04] MEDS: BACLOFEN (10 MG) 10 MG TABLET GT SCH ×4 (09:50→21:42)
[2017-05-04] MEDS: ESCITALOPRAM OXALATE (10 MG) 10 MG TABLET GT SCH (09:50)
[2017-05-04] MEDS: CLOPIDOGREL BISULFATE 75 MG TABLET GT SCH (09:51)
[2017-05-04] MEDS: CALCITRIOL 0.25 MCG CAPSULE PO SCH (09:51)
[2017-05-04] MEDS: METOPROLOL TARTRATE 25 MG TABLET GT SCH ×2 (09:51→17:00)
[2017-05-04] MEDS: GABAPENTIN 300 MG CAPSULE GT SCH ×3 (09:51→17:00)
[2017-05-04] MEDS: ASCORBIC ACID 500 MG TABLET GT SCH ×2 (09:51→17:00)
[2017-05-04] MEDS: CALCIUM CARBONATE 500 MG TAB.CHEW GT SCH ×3 (09:51→17:00)
[2017-05-04] MEDS: FAMOTIDINE (20 MG) 20 MG TABLET GT SCH ×2 (09:51→21:42)
[2017-05-04] MEDS: HYDROCODONE/APAP 10/325MG 1 EA TABLET GT SCH ×2 (12:20→21:42)
[2017-05-04] MEDS: MINERAL OIL/PETROL OINT 396 GM JAR TP SCH ×2 (13:20→21:43)
[2017-05-04] MEDS: HYDROGEL DRESSING 90 GM TUBE TP SCH ×2 (13:20→21:43)
[2017-05-04] MEDS: CADEXOMER IODINE 40 GM TUBE TP SCH ×6 (13:20→21:44)
[2017-05-04] MEDS: HYDROGEN PEROXIDE 480 ML BOTTLE TP SCH ×2 (13:20→21:43)
--- NOTE | 2017-05-04 15:40 | NUR ---
Spoke with Dr. Gonzalez. He said he will try to come on Monday to change pt's trach tube.
--- NOTE | 2017-05-04 15:41 | NUR ---
Called Dr. Kyle Torres's office and left message for his TONGUE LINING STITCHER Liliane Ferraro to see pt for his wounds. Left message with Rufina.
--- NOTE | 2017-05-04 15:47 | NUR ---
CARLI Ferraro called back. She said she and Dr. Torres already signed off on the pt and handed over the case to Dr. Rafiq Diaz. Requested Dr. Rafiq Diaz to follow up on pt's wounds.
[2017-05-04 19:49] VITALS: BP 141/83
[2017-05-04] MEDS: CRANBERRY GT SCH (21:42)
[2017-05-04] MEDS: POLYETHYLENE GLYCOL 3350 17 GM POWD.PACK GT SCH (21:42)
[2017-05-04] MEDS: PROSOURCE / PROSTAT (PYXIS) 30 ML UDC GT SCH (21:42)
[2017-05-04] MEDS: ENOXAPARIN SODIUM 40 MG/0.4 ML DISP.SYRIN SQ SCH (21:43)
[2017-05-04] MEDS: MULTIVIT, IRON, MIN NO. 8, FA 1 TAB GT SCH (21:43)
[2017-05-04] MEDS: ATORVASTATIN CALCIUM 20MG TABLET GT SCH (21:44)
[2017-05-04] MEDS: LIDOCAINE 5% (PATCH) 1 EA PATCH TP SCH (21:44)
--- NOTE | 2017-05-05 01:42 | NUR ---
NURSES NOTES: RELAYED BY HENRRY CORONADO RE ASSESS PT WOUNDS NOTED WITH BILATERAL INNER THIGH REDNESS APPLIED TREATMENT ORDER WITH Z-GUARD Q SHIFT X 14 DAYS THEN RE-EVAL. KEPT AREA CLEAN AND DRY. UPON RENDERING PT WOUND TX'S NOTED NEW CIRCULAR WOUND TO MIDBACK AREA MEASURING 2 CM X 2 CM X 0.5 CM. WOUND CARE CONSULT ORDERED KEPT AREA CLEAN AND DRY AT THIS TIME. REPOSITION PT TOLERATED CARE.
[2017-05-05] MEDS: CHLORHEXIDINE GLUCONATE 15 ML UDC MM SCH ×2 (07:00→16:59)
[2017-05-05 07:51] VITALS: BP 118/71
[2017-05-05] MEDS: ACIDOPHILUS/BULGARICUS 1 EACH TAB.CHEW GT SCH ×3 (09:10→16:58)
[2017-05-05] MEDS: BACLOFEN (10 MG) 10 MG TABLET GT SCH ×4 (09:11→21:37)
[2017-05-05] MEDS: ESCITALOPRAM OXALATE (10 MG) 10 MG TABLET GT SCH (09:11)
[2017-05-05] MEDS: GABAPENTIN 300 MG CAPSULE GT SCH ×3 (09:12→16:59)
[2017-05-05] MEDS: METOPROLOL TARTRATE 25 MG TABLET GT SCH ×2 (09:12→16:59)
[2017-05-05] MEDS: FAMOTIDINE (20 MG) 20 MG TABLET GT SCH ×2 (09:13→21:37)
[2017-05-05] MEDS: CLOPIDOGREL BISULFATE 75 MG TABLET GT SCH (09:13)
[2017-05-05] MEDS: ASCORBIC ACID 500 MG TABLET GT SCH ×2 (09:14→16:59)
[2017-05-05] MEDS: CALCITRIOL 0.25 MCG CAPSULE PO SCH (09:14)
[2017-05-05] MEDS: CALCIUM CARBONATE 500 MG TAB.CHEW GT SCH ×3 (09:14→16:59)
[2017-05-05] MEDS: MINERAL OIL/PETROL OINT 396 GM JAR TP SCH ×2 (09:15→21:38)
[2017-05-05] MEDS: METHADONE HCL 10 MG TABLET GT SCH (09:16)
--- NOTE | 2017-05-05 11:27 | NUR ---
WOUND CARE CONSULT: RECEIVED WOUND CONSULT FOR MIDBACK WOUND. WOUND MEASURES 2CM X 2CM X 0.4CM AND IS RED IN COLOR WITH RED DRAINAGE, SURROUNDING AREA OF SCARRING/STAINING, NO ODOR. CONCUR WITH CURRENT ORDERS FOR IODOSORB GEL. DEFER TO PLASTIC SURGICAL TEAM FOR WOUND TREATMENT PLAN. ALL SKIN PROTECTION MEASURES IN PLACE AND DISCUSSED WITH NURSING STAFF. PT ON FIRST STEP MATTRESS.
[2017-05-05] MEDS: HYDROCODONE/APAP 10/325MG 1 EA TABLET GT SCH ×2 (11:32→21:53)
--- NOTE | 2017-05-05 11:40 | NUR ---
Wound nurse seen resident and assess mid back wound, sacral/buttocks wound and excoriation. She deferred treatment recommendations to surgical team who is following the patient. Left a message to Dr. Rafiq Diaz for follow-up.
[2017-05-05] MEDS: CADEXOMER IODINE 40 GM TUBE TP SCH ×6 (12:00→21:39)
[2017-05-05] MEDS: Z GUARD REMEDY 2 OZ OINT TP SCH ×2 (12:00→21:39)
[2017-05-05] MEDS: HYDROGEL DRESSING 90 GM TUBE TP SCH ×2 (12:00→21:38)
[2017-05-05] MEDS: HYDROGEN PEROXIDE 480 ML BOTTLE TP SCH ×2 (12:00→21:38)
[2017-05-05 19:44] VITALS: BP 138/89
[2017-05-05] MEDS: ACETAMINOPHEN 650 MG/20 ML UDC- FOR SA PATIENTS ONLY GT PRN (20:00)
[2017-05-05] MEDS: CRANBERRY GT SCH (21:37)
[2017-05-05] MEDS: PROSOURCE / PROSTAT (PYXIS) 30 ML UDC GT SCH (21:37)
[2017-05-05] MEDS: MULTIVIT, IRON, MIN NO. 8, FA 1 TAB GT SCH (21:37)
[2017-05-05] MEDS: POLYETHYLENE GLYCOL 3350 17 GM POWD.PACK GT SCH (21:37)
[2017-05-05] MEDS: ENOXAPARIN SODIUM 40 MG/0.4 ML DISP.SYRIN SQ SCH (21:38)
[2017-05-05] MEDS: LIDOCAINE 5% (PATCH) 1 EA PATCH TP SCH (21:39)
[2017-05-05] MEDS: ATORVASTATIN CALCIUM 20MG TABLET GT SCH (22:28)
[2017-05-06] MEDS: METHOCARBAMOL (750MG) 750 MG TABLET GT PRN (05:09)
[2017-05-06] MEDS: CHLORHEXIDINE GLUCONATE 15 ML UDC MM SCH ×2 (07:00→17:23)
[2017-05-06 07:34] VITALS: BP 108/65
[2017-05-06] MEDS: ESCITALOPRAM OXALATE (10 MG) 10 MG TABLET GT SCH (08:34)
[2017-05-06] MEDS: METOPROLOL TARTRATE 25 MG TABLET GT SCH ×2 (08:34→17:22)
[2017-05-06] MEDS: BACLOFEN (10 MG) 10 MG TABLET GT SCH ×4 (08:34→21:13)
[2017-05-06] MEDS: ACIDOPHILUS/BULGARICUS 1 EACH TAB.CHEW GT SCH ×3 (08:34→17:22)
[2017-05-06] MEDS: CLOPIDOGREL BISULFATE 75 MG TABLET GT SCH (08:35)
[2017-05-06] MEDS: GABAPENTIN 300 MG CAPSULE GT SCH ×3 (08:35→17:22)
[2017-05-06] MEDS: CALCITRIOL 0.25 MCG CAPSULE PO SCH (08:35)
[2017-05-06] MEDS: CALCIUM CARBONATE 500 MG TAB.CHEW GT SCH ×3 (08:35→17:22)
[2017-05-06] MEDS: ASCORBIC ACID 500 MG TABLET GT SCH ×2 (08:35→17:22)
[2017-05-06] MEDS: METHADONE HCL 10 MG TABLET GT SCH (08:35)
[2017-05-06] MEDS: FAMOTIDINE (20 MG) 20 MG TABLET GT SCH ×2 (08:35→21:13)
[2017-05-06] MEDS: HYDROGEL DRESSING 90 GM TUBE TP SCH ×2 (09:00→21:44)
[2017-05-06] MEDS: MINERAL OIL/PETROL OINT 396 GM JAR TP SCH ×2 (09:00→21:14)
[2017-05-06] MEDS: HYDROCODONE/APAP 10/325MG 1 EA TABLET GT SCH ×2 (09:00→21:17)
[2017-05-06] MEDS: Z GUARD REMEDY 2 OZ OINT TP SCH ×2 (09:00→21:44)
[2017-05-06] MEDS: HYDROGEN PEROXIDE 480 ML BOTTLE TP SCH ×2 (09:00→21:16)
[2017-05-06] MEDS: CADEXOMER IODINE 40 GM TUBE TP SCH ×6 (09:00→21:44)
--- NOTE | 2017-05-06 17:21 | NUR ---
read PPD after 48 hours.0 mm induration.
[2017-05-06 19:24] VITALS: BP 123/83
[2017-05-06] MEDS: CRANBERRY GT SCH (21:13)
[2017-05-06] MEDS: POLYETHYLENE GLYCOL 3350 17 GM POWD.PACK GT SCH (21:13)
[2017-05-06] MEDS: PROSOURCE / PROSTAT (PYXIS) 30 ML UDC GT SCH (21:14)
[2017-05-06] MEDS: ENOXAPARIN SODIUM 40 MG/0.4 ML DISP.SYRIN SQ SCH (21:14)
[2017-05-06] MEDS: MULTIVIT, IRON, MIN NO. 8, FA 1 TAB GT SCH (21:14)
[2017-05-06] MEDS: ATORVASTATIN CALCIUM 20MG TABLET GT SCH (21:14)
[2017-05-06] MEDS: LIDOCAINE 5% (PATCH) 1 EA PATCH TP SCH (21:14)
[2017-05-06] MEDS: OXYCODONE GT PRN (23:53)
[2017-05-06] MEDS: APAP GT PRN (23:53)
[2017-05-07] MEDS: CHLORHEXIDINE GLUCONATE 15 ML UDC MM SCH ×2 (07:00→16:57)
[2017-05-07 07:39] VITALS: BP 106/70
[2017-05-07] MEDS: ACIDOPHILUS/BULGARICUS 1 EACH TAB.CHEW GT SCH ×3 (08:03→16:57)
[2017-05-07] MEDS: BACLOFEN (10 MG) 10 MG TABLET GT SCH ×4 (08:03→21:19)
[2017-05-07] MEDS: METOPROLOL TARTRATE 25 MG TABLET GT SCH ×2 (08:03→16:57)
[2017-05-07] MEDS: ESCITALOPRAM OXALATE (10 MG) 10 MG TABLET GT SCH (08:03)
[2017-05-07] MEDS: FAMOTIDINE (20 MG) 20 MG TABLET GT SCH ×2 (08:04→21:19)
[2017-05-07] MEDS: CALCIUM CARBONATE 500 MG TAB.CHEW GT SCH ×3 (08:04→16:57)
[2017-05-07] MEDS: CLOPIDOGREL BISULFATE 75 MG TABLET GT SCH (08:04)
[2017-05-07] MEDS: ASCORBIC ACID 500 MG TABLET GT SCH ×2 (08:04→16:57)
[2017-05-07] MEDS: CALCITRIOL 0.25 MCG CAPSULE PO SCH (08:04)
[2017-05-07] MEDS: GABAPENTIN 300 MG CAPSULE GT SCH ×3 (08:04→16:57)
[2017-05-07] MEDS: METHADONE HCL 10 MG TABLET GT SCH (08:04)
[2017-05-07] MEDS: HYDROGEL DRESSING 90 GM TUBE TP SCH ×2 (09:00→21:00)
[2017-05-07] MEDS: HYDROGEN PEROXIDE 480 ML BOTTLE TP SCH ×2 (09:00→21:00)
[2017-05-07] MEDS: Z GUARD REMEDY 2 OZ OINT TP SCH ×2 (09:00→21:00)
[2017-05-07] MEDS: MINERAL OIL/PETROL OINT 396 GM JAR TP SCH ×2 (09:00→21:21)
[2017-05-07] MEDS: HYDROCODONE/APAP 10/325MG 1 EA TABLET GT SCH ×2 (09:00→21:00)
[2017-05-07] MEDS: CADEXOMER IODINE 40 GM TUBE TP SCH ×6 (09:00→21:00)
[2017-05-07 19:47] VITALS: BP 110/63
[2017-05-07] MEDS: CRANBERRY GT SCH (21:19)
[2017-05-07] MEDS: POLYETHYLENE GLYCOL 3350 17 GM POWD.PACK GT SCH (21:19)
[2017-05-07] MEDS: PROSOURCE / PROSTAT (PYXIS) 30 ML UDC GT SCH (21:19)
[2017-05-07] MEDS: MULTIVIT, IRON, MIN NO. 8, FA 1 TAB GT SCH (21:21)
[2017-05-07] MEDS: ENOXAPARIN SODIUM 40 MG/0.4 ML DISP.SYRIN SQ SCH (21:21)
[2017-05-07] MEDS: LIDOCAINE 5% (PATCH) 1 EA PATCH TP SCH (21:24)
[2017-05-07] MEDS: ATORVASTATIN CALCIUM 20MG TABLET GT SCH (21:24)
[2017-05-08] MEDS: APAP GT PRN (01:12)
[2017-05-08] MEDS: OXYCODONE GT PRN (01:12)
[2017-05-08] MEDS: CHLORHEXIDINE GLUCONATE 15 ML UDC MM SCH ×2 (07:00→18:03)
[2017-05-08 08:00] VITALS: BP 124/73
[2017-05-08] MEDS: ACIDOPHILUS/BULGARICUS 1 EACH TAB.CHEW GT SCH ×3 (08:29→17:57)
[2017-05-08] MEDS: BACLOFEN (10 MG) 10 MG TABLET GT SCH ×4 (08:31→20:45)
[2017-05-08] MEDS: ESCITALOPRAM OXALATE (10 MG) 10 MG TABLET GT SCH (08:31)
[2017-05-08] MEDS: METOPROLOL TARTRATE 25 MG TABLET GT SCH ×2 (08:32→18:07)
[2017-05-08] MEDS: GABAPENTIN 300 MG CAPSULE GT SCH ×3 (08:34→18:04)
[2017-05-08] MEDS: METHADONE HCL 10 MG TABLET GT SCH (08:34)
[2017-05-08] MEDS: CALCITRIOL 0.25 MCG CAPSULE PO SCH (08:34)
[2017-05-08] MEDS: ASCORBIC ACID 500 MG TABLET GT SCH ×2 (08:34→17:58)
[2017-05-08] MEDS: MINERAL OIL/PETROL OINT 396 GM JAR TP SCH ×2 (08:34→21:22)
[2017-05-08] MEDS: CLOPIDOGREL BISULFATE 75 MG TABLET GT SCH (08:34)
[2017-05-08] MEDS: FAMOTIDINE (20 MG) 20 MG TABLET GT SCH ×2 (08:34→20:45)
[2017-05-08] MEDS: CALCIUM CARBONATE 500 MG TAB.CHEW GT SCH ×3 (08:34→17:59)
[2017-05-08] MEDS: CADEXOMER IODINE 40 GM TUBE TP SCH ×6 (09:00→21:22)
[2017-05-08] MEDS: HYDROGEN PEROXIDE 480 ML BOTTLE TP SCH ×2 (09:00→21:22)
[2017-05-08] MEDS: Z GUARD REMEDY 2 OZ OINT TP SCH ×2 (09:00→21:22)
[2017-05-08] MEDS: HYDROCODONE/APAP 10/325MG 1 EA TABLET GT SCH ×2 (09:00→20:45)
[2017-05-08] MEDS: HYDROGEL DRESSING 90 GM TUBE TP SCH ×2 (09:00→21:22)
--- NOTE | 2017-05-08 12:15 | NUR ---
RAVI and assistant professor of biochemistry Janiya met with the resident to discuss his preference for turning/repositioning. Janiya also provided him with information pertaining to his wounds. Resident agreed to be turned/repositioned every 4 hours during the nighttime (total of 3 turns during nighttime) and every 3 hours during the day (total of 4 turns during the day). Stated he wants to get well and feel better.
--- NOTE | 2017-05-08 12:43 | NUR ---
Resident is requesting a small whiteboard for his room and the time to be changed on the electronic clock. SW created a work order for engineering to come to change the time and also to see if they have a small whiteboard they can provide the resident with.
--- NOTE | 2017-05-08 15:05 | NUR ---
rn notes administered narco 10/325 mg via g-tube as prescribed, before dressing change, v/s taken bp-124/73, p-76, continued monitoring.
[2017-05-08 20:40] VITALS: BP 114/66
[2017-05-08] MEDS: CRANBERRY GT SCH (20:44)
[2017-05-08] MEDS: MULTIVIT, IRON, MIN NO. 8, FA 1 TAB GT SCH (20:45)
[2017-05-08] MEDS: PROSOURCE / PROSTAT (PYXIS) 30 ML UDC GT SCH (20:45)
[2017-05-08] MEDS: POLYETHYLENE GLYCOL 3350 17 GM POWD.PACK GT SCH (20:45)
[2017-05-08] MEDS: ENOXAPARIN SODIUM 40 MG/0.4 ML DISP.SYRIN SQ SCH (20:46)
[2017-05-08] MEDS: ATORVASTATIN CALCIUM 20MG TABLET GT SCH (21:22)
[2017-05-08] MEDS: LIDOCAINE 5% (PATCH) 1 EA PATCH TP SCH (21:22)
[2017-05-09] MEDS: CHLORHEXIDINE GLUCONATE 15 ML UDC MM SCH ×2 (06:28→16:58)
[2017-05-09 07:36] VITALS: BP 111/75
[2017-05-09] MEDS: ACIDOPHILUS/BULGARICUS 1 EACH TAB.CHEW GT SCH ×3 (08:37→16:58)
[2017-05-09] MEDS: ESCITALOPRAM OXALATE (10 MG) 10 MG TABLET GT SCH (08:37)
[2017-05-09] MEDS: BACLOFEN (10 MG) 10 MG TABLET GT SCH ×4 (08:37→20:45)
[2017-05-09] MEDS: METHADONE HCL 10 MG TABLET GT SCH (08:37)
[2017-05-09] MEDS: METOPROLOL TARTRATE 25 MG TABLET GT SCH ×2 (08:37→16:58)
[2017-05-09] MEDS: GABAPENTIN 300 MG CAPSULE GT SCH ×3 (08:38→16:58)
[2017-05-09] MEDS: CALCIUM CARBONATE 500 MG TAB.CHEW GT SCH ×3 (08:38→16:58)
[2017-05-09] MEDS: CALCITRIOL 0.25 MCG CAPSULE PO SCH (08:38)
[2017-05-09] MEDS: CLOPIDOGREL BISULFATE 75 MG TABLET GT SCH (08:38)
[2017-05-09] MEDS: FAMOTIDINE (20 MG) 20 MG TABLET GT SCH ×2 (08:38→20:46)
[2017-05-09] MEDS: ASCORBIC ACID 500 MG TABLET GT SCH ×2 (08:38→16:58)
[2017-05-09] MEDS: CADEXOMER IODINE 40 GM TUBE TP SCH ×6 (09:46→21:23)
[2017-05-09] MEDS: HYDROGEL DRESSING 90 GM TUBE TP SCH ×2 (09:46→21:22)
[2017-05-09] MEDS: MINERAL OIL/PETROL OINT 396 GM JAR TP SCH ×2 (09:46→21:22)
[2017-05-09] MEDS: HYDROGEN PEROXIDE 480 ML BOTTLE TP SCH ×2 (09:46→21:22)
[2017-05-09] MEDS: Z GUARD REMEDY 2 OZ OINT TP SCH ×2 (09:46→21:23)
[2017-05-09] MEDS: HYDROCODONE/APAP 10/325MG 1 EA TABLET GT SCH ×2 (09:46→20:46)
[2017-05-09 19:54] VITALS: BP 127/75
[2017-05-09] MEDS: CRANBERRY GT SCH (20:45)
[2017-05-09] MEDS: POLYETHYLENE GLYCOL 3350 17 GM POWD.PACK GT SCH (20:45)
[2017-05-09] MEDS: MULTIVIT, IRON, MIN NO. 8, FA 1 TAB GT SCH (20:46)
[2017-05-09] MEDS: PROSOURCE / PROSTAT (PYXIS) 30 ML UDC GT SCH (20:46)
[2017-05-09] MEDS: ENOXAPARIN SODIUM 40 MG/0.4 ML DISP.SYRIN SQ SCH (20:47)
[2017-05-09] MEDS: LIDOCAINE 5% (PATCH) 1 EA PATCH TP SCH (21:23)
[2017-05-09] MEDS: ATORVASTATIN CALCIUM 20MG TABLET GT SCH (21:23)
[2017-05-10] MEDS: CHLORHEXIDINE GLUCONATE 15 ML UDC MM SCH ×2 (06:12→17:49)
[2017-05-10 07:41] VITALS: BP 108/76
[2017-05-10] MEDS: ESCITALOPRAM OXALATE (10 MG) 10 MG TABLET GT SCH (09:00)
[2017-05-10] MEDS: MINERAL OIL/PETROL OINT 396 GM JAR TP SCH ×2 (09:00→21:11)
[2017-05-10] MEDS: FAMOTIDINE (20 MG) 20 MG TABLET GT SCH ×2 (09:00→20:36)
[2017-05-10] MEDS: BACLOFEN (10 MG) 10 MG TABLET GT SCH ×4 (09:00→20:34)
[2017-05-10] MEDS: CLOPIDOGREL BISULFATE 75 MG TABLET GT SCH (09:00)
[2017-05-10] MEDS: CALCITRIOL 0.25 MCG CAPSULE PO SCH (09:00)
[2017-05-10] MEDS: ACIDOPHILUS/BULGARICUS 1 EACH TAB.CHEW GT SCH ×3 (09:00→17:49)
[2017-05-10] MEDS: ASCORBIC ACID 500 MG TABLET GT SCH ×2 (09:00→17:49)
[2017-05-10] MEDS: HYDROCODONE/APAP 10/325MG 1 EA TABLET GT SCH ×2 (09:00→20:36)
[2017-05-10] MEDS: GABAPENTIN 300 MG CAPSULE GT SCH ×3 (09:00→17:49)
[2017-05-10] MEDS: METOPROLOL TARTRATE 25 MG TABLET GT SCH ×2 (09:00→17:49)
[2017-05-10] MEDS: METHADONE HCL 10 MG TABLET GT SCH (09:00)
[2017-05-10] MEDS: CALCIUM CARBONATE 500 MG TAB.CHEW GT SCH ×3 (09:00→17:49)
[2017-05-10] MEDS: CADEXOMER IODINE 40 GM TUBE TP SCH ×6 (11:00→21:12)
[2017-05-10] MEDS: HYDROGEN PEROXIDE 480 ML BOTTLE TP SCH ×2 (11:00→21:11)
[2017-05-10] MEDS: Z GUARD REMEDY 2 OZ OINT TP SCH ×2 (11:00→21:12)
[2017-05-10] MEDS: HYDROGEL DRESSING 90 GM TUBE TP SCH ×2 (11:00→21:11)
[2017-05-10 20:05] VITALS: BP 127/64
[2017-05-10] MEDS: CRANBERRY GT SCH (20:34)
[2017-05-10] MEDS: POLYETHYLENE GLYCOL 3350 17 GM POWD.PACK GT SCH (20:34)
[2017-05-10] MEDS: PROSOURCE / PROSTAT (PYXIS) 30 ML UDC GT SCH (20:36)
[2017-05-10] MEDS: ENOXAPARIN SODIUM 40 MG/0.4 ML DISP.SYRIN SQ SCH (20:36)
[2017-05-10] MEDS: MULTIVIT, IRON, MIN NO. 8, FA 1 TAB GT SCH (20:36)
[2017-05-10] MEDS: LIDOCAINE 5% (PATCH) 1 EA PATCH TP SCH (21:12)
[2017-05-10] MEDS: ATORVASTATIN CALCIUM 20MG TABLET GT SCH (21:12)
[2017-05-11] MEDS: HYDROCODONE/APAP 5/325MG 1 EACH TABLET GT PRN (01:18)
[2017-05-11] MEDS: CHLORHEXIDINE GLUCONATE 15 ML UDC MM SCH ×2 (06:14→17:16)
[2017-05-11 08:00] VITALS: BP 121/64
[2017-05-11] MEDS: BACLOFEN (10 MG) 10 MG TABLET GT SCH ×4 (09:13→21:05)
[2017-05-11] MEDS: METOPROLOL TARTRATE 25 MG TABLET GT SCH ×2 (09:13→17:16)
[2017-05-11] MEDS: ESCITALOPRAM OXALATE (10 MG) 10 MG TABLET GT SCH (09:13)
[2017-05-11] MEDS: ACIDOPHILUS/BULGARICUS 1 EACH TAB.CHEW GT SCH ×3 (09:13→17:15)
[2017-05-11] MEDS: CALCITRIOL 0.25 MCG CAPSULE PO SCH (09:14)
[2017-05-11] MEDS: FAMOTIDINE (20 MG) 20 MG TABLET GT SCH ×2 (09:14→21:06)
[2017-05-11] MEDS: GABAPENTIN 300 MG CAPSULE GT SCH ×3 (09:14→17:16)
[2017-05-11] MEDS: CLOPIDOGREL BISULFATE 75 MG TABLET GT SCH (09:14)
[2017-05-11] MEDS: CALCIUM CARBONATE 500 MG TAB.CHEW GT SCH ×3 (09:14→17:16)
[2017-05-11] MEDS: METHADONE HCL 10 MG TABLET GT SCH (09:14)
[2017-05-11] MEDS: ASCORBIC ACID 500 MG TABLET GT SCH ×2 (09:14→17:16)
[2017-05-11] MEDS: HYDROCODONE/APAP 10/325MG 1 EA TABLET GT SCH ×2 (09:14→21:06)
[2017-05-11] MEDS: HYDROGEL DRESSING 90 GM TUBE TP SCH ×2 (11:00→21:07)
[2017-05-11] MEDS: MINERAL OIL/PETROL OINT 396 GM JAR TP SCH ×2 (11:00→21:07)
[2017-05-11] MEDS: Z GUARD REMEDY 2 OZ OINT TP SCH ×2 (11:00→21:09)
[2017-05-11] MEDS: CADEXOMER IODINE 40 GM TUBE TP SCH ×8 (11:00→21:08)
[2017-05-11] MEDS: HYDROGEN PEROXIDE 480 ML BOTTLE TP SCH ×2 (11:00→21:07)
--- NOTE | 2017-05-11 11:25 | NUR ---
Notified Dr Rafiq Diaz that pt's wound treatments need to be renewed. He said Dr Kyle Torres is seeing the pt's wounds. Notified him that per Dr Torres's MASTER STEAM YACHT Paula, the case has been handed over to them and his MASTER STEAM YACHT Roxanna saw the pt's wounds. Dr Diaz said he communicated with Dr Torres regarding the pt and MASTER STEAM YACHT Roxanna gave wound treatment orders at the time that Dr Torres was not around. Called Dr Torres's office and left message with Rufina. She called back to say that according to Dr Torres, Dr Diaz is seeing the pt. Dr oTrres said he already spoke with Dr Diaz about it. Left message again for Dr Diaz.
--- NOTE | 2017-05-11 13:07 | NUR ---
Notified Dr. Rafiq Diaz that pt's wounds are bigger in size. He said he will see pt on Monday. Received order to continue all current wound treatment orders, give zinc sulfate and Vitamin C for wound healing. Notified Dr. Walker. He said to follow Dr. Diaz's recommendations. Also received order for dietary consult.
[2017-05-11 19:43] VITALS: BP 119/58
[2017-05-11] MEDS: POLYETHYLENE GLYCOL 3350 17 GM POWD.PACK GT SCH (21:05)
[2017-05-11] MEDS: CRANBERRY GT SCH (21:05)
[2017-05-11] MEDS: ZINC SULFATE 220 MG CAPSULE PO SCH (21:06)
[2017-05-11] MEDS: PROSOURCE / PROSTAT (PYXIS) 30 ML UDC GT SCH (21:06)
[2017-05-11] MEDS: MULTIVIT, IRON, MIN NO. 8, FA 1 TAB GT SCH (21:06)
[2017-05-11] MEDS: ENOXAPARIN SODIUM 40 MG/0.4 ML DISP.SYRIN SQ SCH (21:07)
[2017-05-11] MEDS: LIDOCAINE 5% (PATCH) 1 EA PATCH TP SCH (21:08)
[2017-05-11] MEDS: MAGNESIUM HYDROXIDE 30 ML UDC GT PRN (21:09)
[2017-05-11] MEDS: ATORVASTATIN CALCIUM 20MG TABLET GT SCH (21:09)
[2017-05-12] MEDS: CHLORHEXIDINE GLUCONATE 15 ML UDC MM SCH ×2 (07:00→17:07)
[2017-05-12 07:15] VITALS: BP 136/87
[2017-05-12] MEDS: HYDROCODONE/APAP 10/325MG 1 EA TABLET GT SCH ×2 (09:00→21:16)
[2017-05-12] MEDS: ACIDOPHILUS/BULGARICUS 1 EACH TAB.CHEW GT SCH ×3 (09:01→17:06)
[2017-05-12] MEDS: BACLOFEN (10 MG) 10 MG TABLET GT SCH ×4 (09:01→21:15)
[2017-05-12] MEDS: ESCITALOPRAM OXALATE (10 MG) 10 MG TABLET GT SCH (09:01)
[2017-05-12] MEDS: GABAPENTIN 300 MG CAPSULE GT SCH ×3 (09:02→17:06)
[2017-05-12] MEDS: FAMOTIDINE (20 MG) 20 MG TABLET GT SCH ×2 (09:02→21:16)
[2017-05-12] MEDS: METHADONE HCL 10 MG TABLET GT SCH (09:02)
[2017-05-12] MEDS: METOPROLOL TARTRATE 25 MG TABLET GT SCH ×2 (09:02→17:06)
[2017-05-12] MEDS: CALCITRIOL 0.25 MCG CAPSULE PO SCH (09:03)
[2017-05-12] MEDS: CALCIUM CARBONATE 500 MG TAB.CHEW GT SCH ×3 (09:03→17:06)
[2017-05-12] MEDS: ASCORBIC ACID 500 MG TABLET GT SCH ×2 (09:03→17:06)
[2017-05-12] MEDS: MINERAL OIL/PETROL OINT 396 GM JAR TP SCH ×2 (09:03→21:17)
[2017-05-12] MEDS: CLOPIDOGREL BISULFATE 75 MG TABLET GT SCH (09:03)
[2017-05-12] MEDS: Z GUARD REMEDY 2 OZ OINT TP SCH ×2 (11:00→21:17)
[2017-05-12] MEDS: CADEXOMER IODINE 40 GM TUBE TP SCH ×6 (11:00→21:17)
[2017-05-12] MEDS: HYDROGEN PEROXIDE 480 ML BOTTLE TP SCH ×2 (11:00→21:17)
[2017-05-12] MEDS: HYDROGEL DRESSING 90 GM TUBE TP SCH ×2 (11:00→21:17)
--- NOTE | 2017-05-12 12:39 | NUR ---
DIETARY CONSULT CHIEF SCIENTIFIC OFFICERTERESA RECOMMENDED PROSTAT TID VIA GT FOR THE PT FOR PT'S PRESSURE WOUNDS.NOTIFIED DR CALVIN WITH ORDERS CARRIED OUT.
[2017-05-12] MEDS: PROSOURCE / PROSTAT (PYXIS) 30 ML UDC GT SCH ×3 (13:00→21:16)
[2017-05-12] MEDS: POLYETHYLENE GLYCOL 3350 17 GM POWD.PACK GT SCH (21:15)
[2017-05-12] MEDS: CRANBERRY GT SCH (21:15)
[2017-05-12] MEDS: MULTIVIT, IRON, MIN NO. 8, FA 1 TAB GT SCH (21:16)
[2017-05-12] MEDS: ZINC SULFATE 220 MG CAPSULE PO SCH (21:16)
[2017-05-12] MEDS: ATORVASTATIN CALCIUM 20MG TABLET GT SCH (21:17)
[2017-05-12] MEDS: LIDOCAINE 5% (PATCH) 1 EA PATCH TP SCH (21:17)
[2017-05-12] MEDS: ENOXAPARIN SODIUM 40 MG/0.4 ML DISP.SYRIN SQ SCH (21:17)
[2017-05-13] MEDS: CHLORHEXIDINE GLUCONATE 15 ML UDC MM SCH ×2 (07:00→16:41)
[2017-05-13 07:36] VITALS: BP 125/78
[2017-05-13] MEDS: BACLOFEN (10 MG) 10 MG TABLET GT SCH ×4 (08:12→20:38)
[2017-05-13] MEDS: ESCITALOPRAM OXALATE (10 MG) 10 MG TABLET GT SCH (08:12)
[2017-05-13] MEDS: ACIDOPHILUS/BULGARICUS 1 EACH TAB.CHEW GT SCH ×3 (08:12→16:41)
[2017-05-13] MEDS: PROSOURCE / PROSTAT (PYXIS) 30 ML UDC GT SCH ×3 (08:13→16:41)
[2017-05-13] MEDS: CALCITRIOL 0.25 MCG CAPSULE PO SCH (08:13)
[2017-05-13] MEDS: MINERAL OIL/PETROL OINT 396 GM JAR TP SCH ×2 (08:13→20:40)
[2017-05-13] MEDS: GABAPENTIN 300 MG CAPSULE GT SCH ×3 (08:13→16:41)
[2017-05-13] MEDS: FAMOTIDINE (20 MG) 20 MG TABLET GT SCH ×2 (08:13→20:38)
[2017-05-13] MEDS: METHADONE HCL 10 MG TABLET GT SCH (08:13)
[2017-05-13] MEDS: CLOPIDOGREL BISULFATE 75 MG TABLET GT SCH (08:13)
[2017-05-13] MEDS: CALCIUM CARBONATE 500 MG TAB.CHEW GT SCH ×3 (08:13→16:41)
[2017-05-13] MEDS: METOPROLOL TARTRATE 25 MG TABLET GT SCH ×2 (08:13→16:41)
[2017-05-13] MEDS: ASCORBIC ACID 500 MG TABLET GT SCH ×2 (08:13→16:41)
[2017-05-13] MEDS: HYDROCODONE/APAP 10/325MG 1 EA TABLET GT SCH ×2 (12:13→20:39)
[2017-05-13] MEDS: HYDROGEL DRESSING 90 GM TUBE TP SCH ×2 (13:15→20:40)
[2017-05-13] MEDS: CADEXOMER IODINE 40 GM TUBE TP SCH ×6 (13:15→20:40)
[2017-05-13] MEDS: Z GUARD REMEDY 2 OZ OINT TP SCH ×2 (13:15→20:40)
[2017-05-13] MEDS: HYDROGEN PEROXIDE 480 ML BOTTLE TP SCH ×2 (13:15→20:40)
[2017-05-13] MEDS: APAP GT PRN (16:44)
[2017-05-13] MEDS: OXYCODONE GT PRN (16:44)
[2017-05-13] MEDS: CRANBERRY GT SCH (20:38)
[2017-05-13] MEDS: POLYETHYLENE GLYCOL 3350 17 GM POWD.PACK GT SCH (20:38)
[2017-05-13] MEDS: MULTIVIT, IRON, MIN NO. 8, FA 1 TAB GT SCH (20:39)
[2017-05-13] MEDS: ENOXAPARIN SODIUM 40 MG/0.4 ML DISP.SYRIN SQ SCH (20:40)
[2017-05-13] MEDS: LIDOCAINE 5% (PATCH) 1 EA PATCH TP SCH (20:40)
[2017-05-13] MEDS: ZINC SULFATE 220 MG CAPSULE PO SCH (20:40)
[2017-05-13] MEDS: ATORVASTATIN CALCIUM 20MG TABLET GT SCH (22:00)
[2017-05-14] MEDS: CHLORHEXIDINE GLUCONATE 15 ML UDC MM SCH ×2 (07:00→17:11)
[2017-05-14 07:53] VITALS: BP 136/68
[2017-05-14] MEDS: METHOCARBAMOL (750MG) 750 MG TABLET GT PRN (08:56)
[2017-05-14] MEDS: BACLOFEN (10 MG) 10 MG TABLET GT SCH ×4 (09:02→21:00)
[2017-05-14] MEDS: ACIDOPHILUS/BULGARICUS 1 EACH TAB.CHEW GT SCH ×3 (09:02→17:14)
[2017-05-14] MEDS: ESCITALOPRAM OXALATE (10 MG) 10 MG TABLET GT SCH (09:02)
[2017-05-14] MEDS: METOPROLOL TARTRATE 25 MG TABLET GT SCH ×2 (09:03→17:11)
[2017-05-14] MEDS: GABAPENTIN 300 MG CAPSULE GT SCH ×3 (09:10→17:11)
[2017-05-14] MEDS: METHADONE HCL 10 MG TABLET GT SCH (09:10)
[2017-05-14] MEDS: FAMOTIDINE (20 MG) 20 MG TABLET GT SCH ×2 (09:11→21:00)
[2017-05-14] MEDS: CALCITRIOL 0.25 MCG CAPSULE PO SCH (09:11)
[2017-05-14] MEDS: ASCORBIC ACID 500 MG TABLET GT SCH ×2 (09:11→17:11)
[2017-05-14] MEDS: HYDROCODONE/APAP 10/325MG 1 EA TABLET GT SCH ×2 (09:11→21:00)
[2017-05-14] MEDS: CLOPIDOGREL BISULFATE 75 MG TABLET GT SCH (09:11)
[2017-05-14] MEDS: PROSOURCE / PROSTAT (PYXIS) 30 ML UDC GT SCH ×3 (09:11→17:11)
[2017-05-14] MEDS: CALCIUM CARBONATE 500 MG TAB.CHEW GT SCH ×3 (09:11→17:11)
[2017-05-14] MEDS: MINERAL OIL/PETROL OINT 396 GM JAR TP SCH ×2 (11:00→21:00)
[2017-05-14] MEDS: Z GUARD REMEDY 2 OZ OINT TP SCH ×2 (11:00→21:00)
[2017-05-14] MEDS: HYDROGEN PEROXIDE 480 ML BOTTLE TP SCH ×2 (11:00→21:00)
[2017-05-14] MEDS: HYDROGEL DRESSING 90 GM TUBE TP SCH ×2 (11:00→21:00)
[2017-05-14] MEDS: CADEXOMER IODINE 40 GM TUBE TP SCH ×6 (11:00→21:00)
[2017-05-14 20:05] VITALS: BP 120/71
[2017-05-14] MEDS: CRANBERRY GT SCH (21:00)
[2017-05-14] MEDS: ENOXAPARIN SODIUM 40 MG/0.4 ML DISP.SYRIN SQ SCH (21:00)
[2017-05-14] MEDS: ZINC SULFATE 220 MG CAPSULE PO SCH (21:00)
[2017-05-14] MEDS: POLYETHYLENE GLYCOL 3350 17 GM POWD.PACK GT SCH (21:00)
[2017-05-14] MEDS: LIDOCAINE 5% (PATCH) 1 EA PATCH TP SCH (21:00)
[2017-05-14] MEDS: MULTIVIT, IRON, MIN NO. 8, FA 1 TAB GT SCH (21:00)
[2017-05-14] MEDS: ATORVASTATIN CALCIUM 20MG TABLET GT SCH (22:42)
[2017-05-15] MEDS: CHLORHEXIDINE GLUCONATE 15 ML UDC MM SCH ×2 (07:09→17:57)
[2017-05-15 08:01] VITALS: BP 130/79
[2017-05-15] MEDS: ACIDOPHILUS/BULGARICUS 1 EACH TAB.CHEW GT SCH ×3 (08:34→17:56)
[2017-05-15] MEDS: BACLOFEN (10 MG) 10 MG TABLET GT SCH ×4 (08:34→20:43)
[2017-05-15] MEDS: ESCITALOPRAM OXALATE (10 MG) 10 MG TABLET GT SCH (08:34)
[2017-05-15] MEDS: METOPROLOL TARTRATE 25 MG TABLET GT SCH ×2 (08:35→17:00)
[2017-05-15] MEDS: METHADONE HCL 10 MG TABLET GT SCH (08:36)
[2017-05-15] MEDS: CALCIUM CARBONATE 500 MG TAB.CHEW GT SCH ×3 (08:36→17:57)
[2017-05-15] MEDS: FAMOTIDINE (20 MG) 20 MG TABLET GT SCH ×2 (08:36→20:43)
[2017-05-15] MEDS: GABAPENTIN 300 MG CAPSULE GT SCH ×3 (08:36→17:57)
[2017-05-15] MEDS: CLOPIDOGREL BISULFATE 75 MG TABLET GT SCH (08:36)
[2017-05-15] MEDS: ASCORBIC ACID 500 MG TABLET GT SCH ×2 (08:36→17:57)
[2017-05-15] MEDS: PROSOURCE / PROSTAT (PYXIS) 30 ML UDC GT SCH ×3 (08:36→17:57)
[2017-05-15] MEDS: MINERAL OIL/PETROL OINT 396 GM JAR TP SCH ×2 (08:37→21:23)
[2017-05-15] MEDS: CALCITRIOL 0.25 MCG CAPSULE PO SCH (08:37)
--- NOTE | 2017-05-15 10:00 | NUR ---
Seen by Dr Rafiq Diaz and his EMERGENCY SPECIALIST Roxanna Tapia. Received wound treatment orders. He said the Iodosorb worked to dry the wounds and he said the treatments should be changed to zinc. Clarified if he wanted zinc oxide or Z-guard and he said Z-guard. Also clarified wound dressings with him. He said to not apply any dressings on the left upper back wound, right buttock wound, and sacral wound to keep them dry.
[2017-05-15] MEDS: HYDROCODONE/APAP 10/325MG 1 EA TABLET GT SCH ×2 (11:05→20:43)
[2017-05-15] MEDS: Z GUARD REMEDY 2 OZ OINT TP SCH ×2 (12:10→21:25)
[2017-05-15] MEDS: HYDROGEN PEROXIDE 480 ML BOTTLE TP SCH ×2 (12:10→21:23)
[2017-05-15] MEDS: CADEXOMER IODINE 40 GM TUBE TP SCH ×5 (12:10→21:24)
[2017-05-15] MEDS: HYDROGEL DRESSING 90 GM TUBE TP SCH ×3 (12:10→21:23)
[2017-05-15] MEDS: CRANBERRY GT SCH (20:43)
[2017-05-15] MEDS: ZINC SULFATE 220 MG CAPSULE PO SCH (20:43)
[2017-05-15] MEDS: MULTIVIT, IRON, MIN NO. 8, FA 1 TAB GT SCH (20:43)
[2017-05-15] MEDS: POLYETHYLENE GLYCOL 3350 17 GM POWD.PACK GT SCH (20:43)
[2017-05-15] MEDS: ENOXAPARIN SODIUM 40 MG/0.4 ML DISP.SYRIN SQ SCH (20:44)
[2017-05-15 20:47] VITALS: BP 101/64
[2017-05-15] MEDS: LIDOCAINE 5% (PATCH) 1 EA PATCH TP SCH (21:24)
[2017-05-15] MEDS: Z GUARD REMEDY 4 OZ OINT TP SCH ×3 (21:25)
[2017-05-15] MEDS: ATORVASTATIN CALCIUM 20MG TABLET GT SCH (21:25)
[2017-05-16] MEDS: CHLORHEXIDINE GLUCONATE 15 ML UDC MM SCH ×2 (06:27→17:28)
[2017-05-16 07:55] VITALS: BP 127/56
[2017-05-16] MEDS: ACIDOPHILUS/BULGARICUS 1 EACH TAB.CHEW GT SCH ×3 (08:58→17:28)
[2017-05-16] MEDS: CADEXOMER IODINE 40 GM TUBE TP SCH ×4 (08:58→21:03)
[2017-05-16] MEDS: ESCITALOPRAM OXALATE (10 MG) 10 MG TABLET GT SCH (08:59)
[2017-05-16] MEDS: BACLOFEN (10 MG) 10 MG TABLET GT SCH ×4 (08:59→20:24)
[2017-05-16] MEDS: CLOPIDOGREL BISULFATE 75 MG TABLET GT SCH (09:00)
[2017-05-16] MEDS: METOPROLOL TARTRATE 25 MG TABLET GT SCH ×2 (09:00→17:00)
[2017-05-16] MEDS: PROSOURCE / PROSTAT (PYXIS) 30 ML UDC GT SCH ×3 (09:00→17:28)
[2017-05-16] MEDS: CALCIUM CARBONATE 500 MG TAB.CHEW GT SCH ×3 (09:01→17:28)
[2017-05-16] MEDS: ASCORBIC ACID 500 MG TABLET GT SCH ×2 (09:01→17:28)
[2017-05-16] MEDS: HYDROGEN PEROXIDE 480 ML BOTTLE TP SCH ×2 (09:02→21:03)
[2017-05-16] MEDS: MINERAL OIL/PETROL OINT 396 GM JAR TP SCH ×2 (09:02→21:02)
[2017-05-16] MEDS: Z GUARD REMEDY 2 OZ OINT TP SCH ×2 (09:02→21:03)
[2017-05-16] MEDS: Z GUARD REMEDY 4 OZ OINT TP SCH ×6 (09:02→21:04)
[2017-05-16] MEDS: CALCITRIOL 0.25 MCG CAPSULE PO SCH (09:02)
[2017-05-16] MEDS: HYDROGEL DRESSING 90 GM TUBE TP SCH ×3 (09:02→21:02)
[2017-05-16] MEDS: FAMOTIDINE (20 MG) 20 MG TABLET GT SCH ×2 (09:03→20:24)
[2017-05-16] MEDS: GABAPENTIN 300 MG CAPSULE GT SCH ×3 (09:03→17:28)
[2017-05-16] MEDS: METHADONE HCL 10 MG TABLET GT SCH (09:05)
[2017-05-16] MEDS: HYDROCODONE/APAP 10/325MG 1 EA TABLET GT SCH ×2 (09:05→20:24)
[2017-05-16 20:20] VITALS: BP 116/66
[2017-05-16] MEDS: ZINC SULFATE 220 MG CAPSULE PO SCH (20:24)
[2017-05-16] MEDS: POLYETHYLENE GLYCOL 3350 17 GM POWD.PACK GT SCH (20:24)
[2017-05-16] MEDS: MULTIVIT, IRON, MIN NO. 8, FA 1 TAB GT SCH (20:24)
[2017-05-16] MEDS: CRANBERRY GT SCH (20:24)
[2017-05-16] MEDS: ENOXAPARIN SODIUM 40 MG/0.4 ML DISP.SYRIN SQ SCH (20:25)
[2017-05-16] MEDS: LIDOCAINE 5% (PATCH) 1 EA PATCH TP SCH (21:03)
[2017-05-16] MEDS: ATORVASTATIN CALCIUM 20MG TABLET GT SCH (21:04)
[2017-05-17] MEDS: CHLORHEXIDINE GLUCONATE 15 ML UDC MM SCH ×2 (06:04→17:31)
[2017-05-17 07:55] VITALS: BP 124/79
[2017-05-17] MEDS: ESCITALOPRAM OXALATE (10 MG) 10 MG TABLET GT SCH (09:00)
[2017-05-17] MEDS: CALCITRIOL 0.25 MCG CAPSULE PO SCH (09:00)
[2017-05-17] MEDS: ASCORBIC ACID 500 MG TABLET GT SCH ×2 (09:00→17:31)
[2017-05-17] MEDS: FAMOTIDINE (20 MG) 20 MG TABLET GT SCH ×2 (09:00→20:34)
[2017-05-17] MEDS: METHADONE HCL 10 MG TABLET GT SCH (09:00)
[2017-05-17] MEDS: MINERAL OIL/PETROL OINT 396 GM JAR TP SCH ×2 (09:00→20:34)
[2017-05-17] MEDS: CADEXOMER IODINE 40 GM TUBE TP SCH (09:00)
[2017-05-17] MEDS: HYDROCODONE/APAP 10/325MG 1 EA TABLET GT SCH ×2 (09:00→20:34)
[2017-05-17] MEDS: CALCIUM CARBONATE 500 MG TAB.CHEW GT SCH ×3 (09:00→17:31)
[2017-05-17] MEDS: ACIDOPHILUS/BULGARICUS 1 EACH TAB.CHEW GT SCH ×3 (09:00→17:30)
[2017-05-17] MEDS: PROSOURCE / PROSTAT (PYXIS) 30 ML UDC GT SCH ×3 (09:00→17:31)
[2017-05-17] MEDS: METOPROLOL TARTRATE 25 MG TABLET GT SCH ×2 (09:00→17:30)
[2017-05-17] MEDS: BACLOFEN (10 MG) 10 MG TABLET GT SCH ×4 (09:00→20:33)
[2017-05-17] MEDS: GABAPENTIN 300 MG CAPSULE GT SCH ×3 (09:00→17:31)
[2017-05-17] MEDS: CLOPIDOGREL BISULFATE 75 MG TABLET GT SCH (09:00)
[2017-05-17] MEDS: HYDROGEN PEROXIDE 480 ML BOTTLE TP SCH ×2 (11:00→20:35)
[2017-05-17] MEDS: Z GUARD REMEDY 2 OZ OINT TP SCH ×2 (11:00→21:15)
[2017-05-17] MEDS: Z GUARD REMEDY 4 OZ OINT TP SCH ×6 (11:00→21:15)
--- NOTE | 2017-05-17 11:30 | NUR ---
Administration, attending MD and Machine Inspector aware that ENT has not been coming despite follow-up phone calls by staff and administration. Asked MD Ugarte if RT can change trach instead of Dr. Gonzalez (ENT). Dr. Ugarte agreed. RT and patient made aware. Resident will be medicated with PRN pain medication prior to trach change.
--- NOTE | 2017-05-17 12:48 | NUR ---
Informed moqrmn-aj-mur Vilma about upcoming IDT on May 26, 2017 from 12:30- 1:30PM. She stated that she has it on her calendar and plans on attending. If this changes, she will inform the charge nurse.
--- NOTE | 2017-05-17 16:00 | NUR ---
RT changed trach today, tolerated well, no bleeding noted.
[2017-05-17] MEDS: CRANBERRY GT SCH (20:33)
[2017-05-17] MEDS: POLYETHYLENE GLYCOL 3350 17 GM POWD.PACK GT SCH (20:33)
[2017-05-17] MEDS: ENOXAPARIN SODIUM 40 MG/0.4 ML DISP.SYRIN SQ SCH (20:34)
[2017-05-17] MEDS: MULTIVIT, IRON, MIN NO. 8, FA 1 TAB GT SCH (20:34)
[2017-05-17] MEDS: ZINC SULFATE 220 MG CAPSULE PO SCH (20:34)
[2017-05-17] MEDS: LIDOCAINE 5% (PATCH) 1 EA PATCH TP SCH (20:35)
[2017-05-17] MEDS: ATORVASTATIN CALCIUM 20MG TABLET GT SCH (21:15)
[2017-05-17 21:53] VITALS: BP 122/69
[2017-05-18] MEDS: CHLORHEXIDINE GLUCONATE 15 ML UDC MM SCH ×2 (06:06→17:10)
[2017-05-18 07:57] VITALS: BP 141/80
[2017-05-18] MEDS: HYDROGEN PEROXIDE 480 ML BOTTLE TP SCH ×2 (09:00→21:55)
[2017-05-18] MEDS: ESCITALOPRAM OXALATE (10 MG) 10 MG TABLET GT SCH (09:33)
[2017-05-18] MEDS: METHADONE HCL 10 MG TABLET GT SCH (09:33)
[2017-05-18] MEDS: ACIDOPHILUS/BULGARICUS 1 EACH TAB.CHEW GT SCH ×3 (09:33→17:09)
[2017-05-18] MEDS: BACLOFEN (10 MG) 10 MG TABLET GT SCH ×4 (09:33→21:54)
[2017-05-18] MEDS: GABAPENTIN 300 MG CAPSULE GT SCH ×3 (09:33→17:10)
[2017-05-18] MEDS: METOPROLOL TARTRATE 25 MG TABLET GT SCH ×2 (09:33→17:10)
[2017-05-18] MEDS: CALCIUM CARBONATE 500 MG TAB.CHEW GT SCH ×3 (09:34→17:10)
[2017-05-18] MEDS: HYDROCODONE/APAP 10/325MG 1 EA TABLET GT SCH ×2 (09:34→21:00)
[2017-05-18] MEDS: PROSOURCE / PROSTAT (PYXIS) 30 ML UDC GT SCH ×3 (09:34→17:10)
[2017-05-18] MEDS: CALCITRIOL 0.25 MCG CAPSULE PO SCH (09:34)
[2017-05-18] MEDS: CLOPIDOGREL BISULFATE 75 MG TABLET GT SCH (09:34)
[2017-05-18] MEDS: ASCORBIC ACID 500 MG TABLET GT SCH ×2 (09:34→17:10)
[2017-05-18] MEDS: FAMOTIDINE (20 MG) 20 MG TABLET GT SCH ×2 (09:34→21:54)
[2017-05-18] MEDS: MINERAL OIL/PETROL OINT 396 GM JAR TP SCH ×2 (09:34→21:55)
[2017-05-18] MEDS: Z GUARD REMEDY 4 OZ OINT TP SCH ×6 (11:00→21:55)
[2017-05-18] MEDS: METHOCARBAMOL (750MG) 750 MG TABLET GT PRN (17:10)
[2017-05-18] MEDS: MAGNESIUM HYDROXIDE 30 ML UDC GT PRN (17:10)
[2017-05-18] MEDS: ACETAMINOPHEN 650 MG/20 ML UDC- FOR SA PATIENTS ONLY GT PRN (17:11)
[2017-05-18 21:26] VITALS: BP 113/71
[2017-05-18] MEDS: POLYETHYLENE GLYCOL 3350 17 GM POWD.PACK GT SCH (21:54)
[2017-05-18] MEDS: CRANBERRY GT SCH (21:54)
[2017-05-18] MEDS: MULTIVIT, IRON, MIN NO. 8, FA 1 TAB GT SCH (21:54)
[2017-05-18] MEDS: ZINC SULFATE 220 MG CAPSULE PO SCH (21:54)
[2017-05-18] MEDS: LIDOCAINE 5% (PATCH) 1 EA PATCH TP SCH (21:55)
[2017-05-18] MEDS: ATORVASTATIN CALCIUM 20MG TABLET GT SCH (21:55)
[2017-05-18] MEDS: ENOXAPARIN SODIUM 40 MG/0.4 ML DISP.SYRIN SQ SCH (21:55)
[2017-05-19] MEDS: CHLORHEXIDINE GLUCONATE 15 ML UDC MM SCH ×2 (07:00→17:26)
[2017-05-19 07:51] VITALS: BP 133/84
[2017-05-19] MEDS: ESCITALOPRAM OXALATE (10 MG) 10 MG TABLET GT SCH (08:58)
[2017-05-19] MEDS: BACLOFEN (10 MG) 10 MG TABLET GT SCH ×4 (08:58→21:12)
[2017-05-19] MEDS: ACIDOPHILUS/BULGARICUS 1 EACH TAB.CHEW GT SCH ×3 (08:58→17:00)
[2017-05-19] MEDS: METOPROLOL TARTRATE 25 MG TABLET GT SCH ×2 (08:59→17:25)
[2017-05-19] MEDS: GABAPENTIN 300 MG CAPSULE GT SCH ×3 (08:59→17:25)
[2017-05-19] MEDS: METHADONE HCL 10 MG TABLET GT SCH (08:59)
[2017-05-19] MEDS: FAMOTIDINE (20 MG) 20 MG TABLET GT SCH ×2 (09:00→21:13)
[2017-05-19] MEDS: ASCORBIC ACID 500 MG TABLET GT SCH ×2 (09:00→17:25)
[2017-05-19] MEDS: CALCIUM CARBONATE 500 MG TAB.CHEW GT SCH ×3 (09:00→17:25)
[2017-05-19] MEDS: PROSOURCE / PROSTAT (PYXIS) 30 ML UDC GT SCH ×3 (09:00→17:25)
[2017-05-19] MEDS: HYDROCODONE/APAP 10/325MG 1 EA TABLET GT SCH ×2 (09:00→21:15)
[2017-05-19] MEDS: CLOPIDOGREL BISULFATE 75 MG TABLET GT SCH (09:00)
[2017-05-19] MEDS: CALCITRIOL 0.25 MCG CAPSULE PO SCH (09:00)
[2017-05-19] MEDS: HYDROGEN PEROXIDE 480 ML BOTTLE TP SCH ×2 (11:00→21:14)
[2017-05-19] MEDS: Z GUARD REMEDY 4 OZ OINT TP SCH ×6 (11:00→21:40)
[2017-05-19] MEDS: MINERAL OIL/PETROL OINT 396 GM JAR TP SCH ×2 (11:00→21:14)
[2017-05-19] MEDS: CRANBERRY GT SCH (21:12)
[2017-05-19] MEDS: POLYETHYLENE GLYCOL 3350 17 GM POWD.PACK GT SCH (21:13)
[2017-05-19] MEDS: MULTIVIT, IRON, MIN NO. 8, FA 1 TAB GT SCH (21:13)
[2017-05-19] MEDS: LIDOCAINE 5% (PATCH) 1 EA PATCH TP SCH (21:14)
[2017-05-19] MEDS: ATORVASTATIN CALCIUM 20MG TABLET GT SCH (21:14)
[2017-05-19] MEDS: ENOXAPARIN SODIUM 40 MG/0.4 ML DISP.SYRIN SQ SCH (21:14)
[2017-05-19] MEDS: ZINC SULFATE 220 MG CAPSULE PO SCH (21:17)
[2017-05-19 21:47] VITALS: BP 114/69
[2017-05-20] MEDS: OXYCODONE GT PRN ×2 (04:35→15:10)
[2017-05-20] MEDS: APAP GT PRN ×2 (04:35→15:10)
[2017-05-20] MEDS: CHLORHEXIDINE GLUCONATE 15 ML UDC MM SCH ×2 (07:00→17:55)
[2017-05-20 07:44] VITALS: BP 155/93
[2017-05-20] MEDS: Z GUARD REMEDY 4 OZ OINT TP SCH ×6 (09:00→21:00)
[2017-05-20] MEDS: BACLOFEN (10 MG) 10 MG TABLET GT SCH ×4 (09:24→21:00)
[2017-05-20] MEDS: ESCITALOPRAM OXALATE (10 MG) 10 MG TABLET GT SCH (09:24)
[2017-05-20] MEDS: ACIDOPHILUS/BULGARICUS 1 EACH TAB.CHEW GT SCH ×3 (09:24→17:54)
[2017-05-20] MEDS: CLOPIDOGREL BISULFATE 75 MG TABLET GT SCH (09:25)
[2017-05-20] MEDS: MINERAL OIL/PETROL OINT 396 GM JAR TP SCH ×2 (09:25→21:00)
[2017-05-20] MEDS: METOPROLOL TARTRATE 25 MG TABLET GT SCH ×2 (09:25→17:55)
[2017-05-20] MEDS: GABAPENTIN 300 MG CAPSULE GT SCH ×3 (09:25→17:55)
[2017-05-20] MEDS: METHADONE HCL 10 MG TABLET GT SCH (09:25)
[2017-05-20] MEDS: CALCIUM CARBONATE 500 MG TAB.CHEW GT SCH ×3 (09:25→17:55)
[2017-05-20] MEDS: ASCORBIC ACID 500 MG TABLET GT SCH ×2 (09:25→17:55)
[2017-05-20] MEDS: FAMOTIDINE (20 MG) 20 MG TABLET GT SCH ×2 (09:25→21:00)
[2017-05-20] MEDS: CALCITRIOL 0.25 MCG CAPSULE PO SCH (09:25)
[2017-05-20] MEDS: PROSOURCE / PROSTAT (PYXIS) 30 ML UDC GT SCH ×3 (09:25→17:55)
[2017-05-20] MEDS: HYDROCODONE/APAP 10/325MG 1 EA TABLET GT SCH ×2 (12:40→21:00)
[2017-05-20] MEDS: HYDROGEN PEROXIDE 480 ML BOTTLE TP SCH ×2 (13:40→21:00)
[2017-05-20 19:53] VITALS: BP 134/83
[2017-05-20] MEDS: MULTIVIT, IRON, MIN NO. 8, FA 1 TAB GT SCH (21:00)
[2017-05-20] MEDS: ENOXAPARIN SODIUM 40 MG/0.4 ML DISP.SYRIN SQ SCH (21:00)
[2017-05-20] MEDS: POLYETHYLENE GLYCOL 3350 17 GM POWD.PACK GT SCH (21:00)
[2017-05-20] MEDS: LIDOCAINE 5% (PATCH) 1 EA PATCH TP SCH (21:00)
[2017-05-20] MEDS: CRANBERRY GT SCH (21:00)
[2017-05-20] MEDS: ZINC SULFATE 220 MG CAPSULE PO SCH (21:00)
[2017-05-20] MEDS: ATORVASTATIN CALCIUM 20MG TABLET GT SCH (22:13)
[2017-05-21] MEDS: HYDROCODONE/APAP 5/325MG 1 EACH TABLET GT PRN (01:12)
[2017-05-21] MEDS: CHLORHEXIDINE GLUCONATE 15 ML UDC MM SCH ×2 (07:00→17:29)
[2017-05-21 07:34] VITALS: BP 122/71
[2017-05-21] MEDS: ESCITALOPRAM OXALATE (10 MG) 10 MG TABLET GT SCH (08:38)
[2017-05-21] MEDS: BACLOFEN (10 MG) 10 MG TABLET GT SCH ×4 (08:38→21:15)
[2017-05-21] MEDS: METOPROLOL TARTRATE 25 MG TABLET GT SCH ×2 (08:38→17:29)
[2017-05-21] MEDS: ACIDOPHILUS/BULGARICUS 1 EACH TAB.CHEW GT SCH ×3 (08:38→17:28)
[2017-05-21] MEDS: FAMOTIDINE (20 MG) 20 MG TABLET GT SCH ×2 (08:39→21:15)
[2017-05-21] MEDS: PROSOURCE / PROSTAT (PYXIS) 30 ML UDC GT SCH ×3 (08:39→17:29)
[2017-05-21] MEDS: CLOPIDOGREL BISULFATE 75 MG TABLET GT SCH (08:39)
[2017-05-21] MEDS: ASCORBIC ACID 500 MG TABLET GT SCH ×2 (08:39→17:29)
[2017-05-21] MEDS: CALCITRIOL 0.25 MCG CAPSULE PO SCH (08:39)
[2017-05-21] MEDS: CALCIUM CARBONATE 500 MG TAB.CHEW GT SCH ×3 (08:39→17:29)
[2017-05-21] MEDS: GABAPENTIN 300 MG CAPSULE GT SCH ×3 (08:39→17:29)
[2017-05-21] MEDS: METHADONE HCL 10 MG TABLET GT SCH (08:39)
[2017-05-21] MEDS: CADEXOMER IODINE 40 GM TUBE TP SCH ×2 (09:00→21:16)
[2017-05-21] MEDS: HYDROCODONE/APAP 10/325MG 1 EA TABLET GT SCH ×2 (09:50→21:15)
[2017-05-21] MEDS: HYDROGEN PEROXIDE 480 ML BOTTLE TP SCH ×2 (09:50→21:16)
[2017-05-21] MEDS: MINERAL OIL/PETROL OINT 396 GM JAR TP SCH ×2 (09:50→21:16)
[2017-05-21] MEDS: Z GUARD REMEDY 4 OZ OINT TP SCH ×6 (09:51→21:19)
[2017-05-21 21:08] VITALS: BP 138/76
[2017-05-21] MEDS: CRANBERRY GT SCH (21:15)
[2017-05-21] MEDS: POLYETHYLENE GLYCOL 3350 17 GM POWD.PACK GT SCH (21:15)
[2017-05-21] MEDS: MULTIVIT, IRON, MIN NO. 8, FA 1 TAB GT SCH (21:15)
[2017-05-21] MEDS: ENOXAPARIN SODIUM 40 MG/0.4 ML DISP.SYRIN SQ SCH (21:16)
[2017-05-21] MEDS: ZINC SULFATE 220 MG CAPSULE PO SCH (21:16)
[2017-05-21] MEDS: LIDOCAINE 5% (PATCH) 1 EA PATCH TP SCH (21:19)
[2017-05-21] MEDS: ATORVASTATIN CALCIUM 20MG TABLET GT SCH (21:19)
[2017-05-22] MEDS: OXYCODONE GT PRN (03:33)
[2017-05-22] MEDS: APAP GT PRN (03:33)
[2017-05-22] MEDS: CHLORHEXIDINE GLUCONATE 15 ML UDC MM SCH ×2 (06:06→17:15)
[2017-05-22 07:46] VITALS: BP 126/67
[2017-05-22] MEDS: BACLOFEN (10 MG) 10 MG TABLET GT SCH ×4 (09:16→21:10)
[2017-05-22] MEDS: ESCITALOPRAM OXALATE (10 MG) 10 MG TABLET GT SCH (09:16)
[2017-05-22] MEDS: ACIDOPHILUS/BULGARICUS 1 EACH TAB.CHEW GT SCH ×3 (09:16→17:15)
[2017-05-22] MEDS: HYDROCODONE/APAP 10/325MG 1 EA TABLET GT SCH ×2 (09:17→21:10)
[2017-05-22] MEDS: METOPROLOL TARTRATE 25 MG TABLET GT SCH ×2 (09:17→17:15)
[2017-05-22] MEDS: CALCIUM CARBONATE 500 MG TAB.CHEW GT SCH ×3 (09:17→17:15)
[2017-05-22] MEDS: GABAPENTIN 300 MG CAPSULE GT SCH ×3 (09:17→17:15)
[2017-05-22] MEDS: FAMOTIDINE (20 MG) 20 MG TABLET GT SCH ×2 (09:17→21:10)
[2017-05-22] MEDS: METHADONE HCL 10 MG TABLET GT SCH (09:17)
[2017-05-22] MEDS: PROSOURCE / PROSTAT (PYXIS) 30 ML UDC GT SCH ×3 (09:17→17:15)
[2017-05-22] MEDS: CLOPIDOGREL BISULFATE 75 MG TABLET GT SCH (09:17)
[2017-05-22] MEDS: Z GUARD REMEDY 4 OZ OINT TP SCH ×6 (09:18→21:12)
[2017-05-22] MEDS: ASCORBIC ACID 500 MG TABLET GT SCH ×2 (09:18→17:15)
[2017-05-22] MEDS: CADEXOMER IODINE 40 GM TUBE TP SCH ×2 (09:18→21:11)
[2017-05-22] MEDS: MINERAL OIL/PETROL OINT 396 GM JAR TP SCH ×2 (09:18→21:11)
[2017-05-22] MEDS: HYDROGEN PEROXIDE 480 ML BOTTLE TP SCH ×2 (09:18→21:11)
[2017-05-22] MEDS: CALCITRIOL 0.25 MCG CAPSULE PO SCH (09:18)
[2017-05-22 20:26] VITALS: BP 108/71
[2017-05-22] MEDS: MULTIVIT, IRON, MIN NO. 8, FA 1 TAB GT SCH (21:10)
[2017-05-22] MEDS: CRANBERRY GT SCH (21:10)
[2017-05-22] MEDS: ZINC SULFATE 220 MG CAPSULE PO SCH (21:10)
[2017-05-22] MEDS: POLYETHYLENE GLYCOL 3350 17 GM POWD.PACK GT SCH (21:10)
[2017-05-22] MEDS: ENOXAPARIN SODIUM 40 MG/0.4 ML DISP.SYRIN SQ SCH (21:11)
[2017-05-22] MEDS: LIDOCAINE 5% (PATCH) 1 EA PATCH TP SCH (21:11)
[2017-05-22] MEDS: ATORVASTATIN CALCIUM 20MG TABLET GT SCH (21:12)
[2017-05-23] MEDS: CHLORHEXIDINE GLUCONATE 15 ML UDC MM SCH ×2 (06:11→16:45)
[2017-05-23 07:40] VITALS: BP 136/99
[2017-05-23] MEDS: METHADONE HCL 10 MG TABLET GT SCH (09:00)
[2017-05-23] MEDS: MINERAL OIL/PETROL OINT 396 GM JAR TP SCH ×2 (09:00→21:07)
[2017-05-23] MEDS: HYDROGEN PEROXIDE 480 ML BOTTLE TP SCH ×2 (09:00→21:08)
[2017-05-23] MEDS: CLOPIDOGREL BISULFATE 75 MG TABLET GT SCH (09:00)
[2017-05-23] MEDS: BACLOFEN (10 MG) 10 MG TABLET GT SCH ×4 (09:00→21:06)
[2017-05-23] MEDS: HYDROCODONE/APAP 10/325MG 1 EA TABLET GT SCH ×2 (09:00→21:07)
[2017-05-23] MEDS: CALCIUM CARBONATE 500 MG TAB.CHEW GT SCH ×3 (09:00→16:44)
[2017-05-23] MEDS: CALCITRIOL 0.25 MCG CAPSULE PO SCH (09:00)
[2017-05-23] MEDS: FAMOTIDINE (20 MG) 20 MG TABLET GT SCH ×2 (09:00→21:07)
[2017-05-23] MEDS: Z GUARD REMEDY 4 OZ OINT TP SCH ×6 (09:00→21:08)
[2017-05-23] MEDS: METOPROLOL TARTRATE 25 MG TABLET GT SCH ×2 (09:00→16:44)
[2017-05-23] MEDS: ESCITALOPRAM OXALATE (10 MG) 10 MG TABLET GT SCH (09:00)
[2017-05-23] MEDS: PROSOURCE / PROSTAT (PYXIS) 30 ML UDC GT SCH ×3 (09:00→16:44)
[2017-05-23] MEDS: ASCORBIC ACID 500 MG TABLET GT SCH ×2 (09:00→16:44)
[2017-05-23] MEDS: GABAPENTIN 300 MG CAPSULE GT SCH ×3 (09:00→16:44)
[2017-05-23] MEDS: ACIDOPHILUS/BULGARICUS 1 EACH TAB.CHEW GT SCH ×3 (09:00→16:44)
[2017-05-23] MEDS: CADEXOMER IODINE 40 GM TUBE TP SCH ×2 (09:00→21:08)
[2017-05-23] MEDS: CRANBERRY GT SCH (21:06)
[2017-05-23] MEDS: POLYETHYLENE GLYCOL 3350 17 GM POWD.PACK GT SCH (21:06)
[2017-05-23] MEDS: MULTIVIT, IRON, MIN NO. 8, FA 1 TAB GT SCH (21:07)
[2017-05-23] MEDS: ZINC SULFATE 220 MG CAPSULE PO SCH (21:07)
[2017-05-23] MEDS: ENOXAPARIN SODIUM 40 MG/0.4 ML DISP.SYRIN SQ SCH (21:07)
[2017-05-23] MEDS: LIDOCAINE 5% (PATCH) 1 EA PATCH TP SCH (21:08)
[2017-05-23] MEDS: ATORVASTATIN CALCIUM 20MG TABLET GT SCH (21:08)
[2017-05-23 22:59] VITALS: BP 106/71
[2017-05-24] MEDS: CHLORHEXIDINE GLUCONATE 15 ML UDC MM SCH ×2 (06:09→17:00)
[2017-05-24 07:49] VITALS: BP 149/81
[2017-05-24] MEDS: ACIDOPHILUS/BULGARICUS 1 EACH TAB.CHEW GT SCH ×3 (09:22→17:00)
[2017-05-24] MEDS: METOPROLOL TARTRATE 25 MG TABLET GT SCH ×2 (09:22→17:00)
[2017-05-24] MEDS: ESCITALOPRAM OXALATE (10 MG) 10 MG TABLET GT SCH (09:22)
[2017-05-24] MEDS: BACLOFEN (10 MG) 10 MG TABLET GT SCH ×4 (09:22→21:47)
[2017-05-24] MEDS: METHADONE HCL 10 MG TABLET GT SCH (09:24)
[2017-05-24] MEDS: FAMOTIDINE (20 MG) 20 MG TABLET GT SCH ×2 (09:25→21:47)
[2017-05-24] MEDS: GABAPENTIN 300 MG CAPSULE GT SCH ×3 (09:25→17:00)
[2017-05-24] MEDS: CLOPIDOGREL BISULFATE 75 MG TABLET GT SCH (09:25)
[2017-05-24] MEDS: PROSOURCE / PROSTAT (PYXIS) 30 ML UDC GT SCH ×3 (09:25→17:00)
[2017-05-24] MEDS: CALCITRIOL 0.25 MCG CAPSULE PO SCH (09:26)
[2017-05-24] MEDS: CALCIUM CARBONATE 500 MG TAB.CHEW GT SCH ×3 (09:26→17:00)
[2017-05-24] MEDS: ASCORBIC ACID 500 MG TABLET GT SCH ×2 (09:26→17:00)
[2017-05-24] MEDS: MINERAL OIL/PETROL OINT 396 GM JAR TP SCH ×2 (09:26→21:47)
[2017-05-24] MEDS: Z GUARD REMEDY 4 OZ OINT TP SCH ×6 (09:27→22:27)
[2017-05-24] MEDS: HYDROGEN PEROXIDE 480 ML BOTTLE TP SCH ×2 (09:27→21:48)
[2017-05-24] MEDS: CADEXOMER IODINE 40 GM TUBE TP SCH (09:27)
[2017-05-24] MEDS: HYDROCODONE/APAP 10/325MG 1 EA TABLET GT SCH ×2 (09:30→21:48)
[2017-05-24 19:55] VITALS: BP 121/67
[2017-05-24] MEDS: POLYETHYLENE GLYCOL 3350 17 GM POWD.PACK GT SCH (21:47)
[2017-05-24] MEDS: ZINC SULFATE 220 MG CAPSULE PO SCH (21:47)
[2017-05-24] MEDS: MULTIVIT, IRON, MIN NO. 8, FA 1 TAB GT SCH (21:47)
[2017-05-24] MEDS: ENOXAPARIN SODIUM 40 MG/0.4 ML DISP.SYRIN SQ SCH (21:47)
[2017-05-24] MEDS: CRANBERRY GT SCH (21:47)
[2017-05-24] MEDS: LIDOCAINE 5% (PATCH) 1 EA PATCH TP SCH (21:50)
[2017-05-24] MEDS: ATORVASTATIN CALCIUM 20MG TABLET GT SCH (21:50)
[2017-05-25] MEDS: OXYCODONE GT PRN (05:46)
[2017-05-25] MEDS: APAP GT PRN (05:46)
[2017-05-25] MEDS: CHLORHEXIDINE GLUCONATE 15 ML UDC MM SCH ×2 (07:00→17:18)
[2017-05-25 07:31] VITALS: BP 121/83
[2017-05-25] MEDS: MINERAL OIL/PETROL OINT 396 GM JAR TP SCH ×2 (09:00→21:00)
[2017-05-25] MEDS: CADEXOMER IODINE 40 GM TUBE TP SCH (09:00)
[2017-05-25] MEDS: ESCITALOPRAM OXALATE (10 MG) 10 MG TABLET GT SCH (09:51)
[2017-05-25] MEDS: BACLOFEN (10 MG) 10 MG TABLET GT SCH ×4 (09:51→21:00)
[2017-05-25] MEDS: ACIDOPHILUS/BULGARICUS 1 EACH TAB.CHEW GT SCH ×3 (09:51→17:18)
[2017-05-25] MEDS: CALCIUM CARBONATE 500 MG TAB.CHEW GT SCH ×3 (09:52→17:18)
[2017-05-25] MEDS: CLOPIDOGREL BISULFATE 75 MG TABLET GT SCH (09:52)
[2017-05-25] MEDS: FAMOTIDINE (20 MG) 20 MG TABLET GT SCH ×2 (09:52→21:00)
[2017-05-25] MEDS: METOPROLOL TARTRATE 25 MG TABLET GT SCH ×2 (09:52→17:18)
[2017-05-25] MEDS: CALCITRIOL 0.25 MCG CAPSULE PO SCH (09:52)
[2017-05-25] MEDS: METHADONE HCL 10 MG TABLET GT SCH (09:52)
[2017-05-25] MEDS: PROSOURCE / PROSTAT (PYXIS) 30 ML UDC GT SCH ×2 (09:52→12:59)
[2017-05-25] MEDS: ASCORBIC ACID 500 MG TABLET GT SCH ×2 (09:52→17:18)
[2017-05-25] MEDS: GABAPENTIN 300 MG CAPSULE GT SCH ×3 (09:52→17:18)
[2017-05-25] MEDS: HYDROCODONE/APAP 10/325MG 1 EA TABLET GT SCH ×2 (10:30→21:00)
[2017-05-25] MEDS: Z GUARD REMEDY 4 OZ OINT TP SCH ×6 (11:00→21:00)
[2017-05-25] MEDS: HYDROGEN PEROXIDE 480 ML BOTTLE TP SCH ×2 (11:00→21:00)
[2017-05-25 19:37] VITALS: BP 122/86
[2017-05-25] MEDS: LIDOCAINE 5% (PATCH) 1 EA PATCH TP SCH (21:00)
[2017-05-25] MEDS: POLYETHYLENE GLYCOL 3350 17 GM POWD.PACK GT SCH (21:00)
[2017-05-25] MEDS: ENOXAPARIN SODIUM 40 MG/0.4 ML DISP.SYRIN SQ SCH (21:00)
[2017-05-25] MEDS: MULTIVIT, IRON, MIN NO. 8, FA 1 TAB GT SCH (21:00)
[2017-05-25] MEDS: CRANBERRY GT SCH (21:00)
[2017-05-25] MEDS: ZINC SULFATE 220 MG CAPSULE PO SCH (21:00)
[2017-05-25] MEDS: ATORVASTATIN CALCIUM 20MG TABLET GT SCH (22:36)
[2017-05-26] MEDS: CHLORHEXIDINE GLUCONATE 15 ML UDC MM SCH ×2 (07:00→17:29)
[2017-05-26 07:31] VITALS: BP 108/69
[2017-05-26] MEDS: ACIDOPHILUS/BULGARICUS 1 EACH TAB.CHEW GT SCH ×3 (08:46→17:24)
[2017-05-26] MEDS: BACLOFEN (10 MG) 10 MG TABLET GT SCH ×4 (08:46→21:55)
[2017-05-26] MEDS: ESCITALOPRAM OXALATE (10 MG) 10 MG TABLET GT SCH (08:46)
[2017-05-26] MEDS: METOPROLOL TARTRATE 25 MG TABLET GT SCH ×2 (08:47→17:34)
[2017-05-26] MEDS: METHADONE HCL 10 MG TABLET GT SCH (08:48)
[2017-05-26] MEDS: GABAPENTIN 300 MG CAPSULE GT SCH ×3 (08:49→17:26)
[2017-05-26] MEDS: FAMOTIDINE (20 MG) 20 MG TABLET GT SCH ×2 (08:49→21:55)
[2017-05-26] MEDS: CLOPIDOGREL BISULFATE 75 MG TABLET GT SCH (08:50)
[2017-05-26] MEDS: CALCITRIOL 0.25 MCG CAPSULE PO SCH (08:50)
[2017-05-26] MEDS: CALCIUM CARBONATE 500 MG TAB.CHEW GT SCH ×3 (08:50→17:27)
[2017-05-26] MEDS: ASCORBIC ACID 500 MG TABLET GT SCH ×2 (08:51→17:28)
[2017-05-26] MEDS: MINERAL OIL/PETROL OINT 396 GM JAR TP SCH ×2 (08:51→21:55)
--- NOTE | 2017-05-26 10:14 | NUR ---
Seen and examined by Peggy Hoffman NP no new order. Resident requesting CD's, chips and shaving cream, notified Vilma, sister in law so she can bring supplies when she comes today. Appreciated the call.
[2017-05-26] MEDS: HYDROCODONE/APAP 10/325MG 1 EA TABLET GT SCH ×2 (10:31→21:55)
[2017-05-26] MEDS: HYDROGEN PEROXIDE 480 ML BOTTLE TP SCH ×2 (11:05→21:56)
[2017-05-26] MEDS: Z GUARD REMEDY 4 OZ OINT TP SCH ×6 (11:05→21:56)
[2017-05-26] MEDS: OXYCODONE GT PRN (17:34)
[2017-05-26] MEDS: APAP GT PRN (17:34)
[2017-05-26 19:29] VITALS: BP 115/72
[2017-05-26] MEDS: MULTIVIT, IRON, MIN NO. 8, FA 1 TAB GT SCH (21:55)
[2017-05-26] MEDS: POLYETHYLENE GLYCOL 3350 17 GM POWD.PACK GT SCH (21:55)
[2017-05-26] MEDS: ZINC SULFATE 220 MG CAPSULE PO SCH (21:55)
[2017-05-26] MEDS: CRANBERRY GT SCH (21:55)
[2017-05-26] MEDS: ENOXAPARIN SODIUM 40 MG/0.4 ML DISP.SYRIN SQ SCH (21:55)
[2017-05-26] MEDS: LIDOCAINE 5% (PATCH) 1 EA PATCH TP SCH (21:56)
[2017-05-26] MEDS: ATORVASTATIN CALCIUM 20MG TABLET GT SCH (21:56)
[2017-05-26] MEDS: HYDROGEL DRESSING 90 GM TUBE TP SCH (21:56)
[2017-05-27] MEDS: CHLORHEXIDINE GLUCONATE 15 ML UDC MM SCH ×2 (07:03→17:08)
[2017-05-27 07:42] VITALS: BP 118/79
[2017-05-27] MEDS: ACIDOPHILUS/BULGARICUS 1 EACH TAB.CHEW GT SCH ×3 (08:25→17:08)
[2017-05-27] MEDS: BACLOFEN (10 MG) 10 MG TABLET GT SCH ×4 (08:25→21:00)
[2017-05-27] MEDS: METHADONE HCL 10 MG TABLET GT SCH (08:25)
[2017-05-27] MEDS: METOPROLOL TARTRATE 25 MG TABLET GT SCH ×2 (08:25→17:08)
[2017-05-27] MEDS: ESCITALOPRAM OXALATE (10 MG) 10 MG TABLET GT SCH (08:25)
[2017-05-27] MEDS: MINERAL OIL/PETROL OINT 396 GM JAR TP SCH ×2 (08:26→21:00)
[2017-05-27] MEDS: CALCIUM CARBONATE 500 MG TAB.CHEW GT SCH ×3 (08:26→17:08)
[2017-05-27] MEDS: GABAPENTIN 300 MG CAPSULE GT SCH ×3 (08:26→17:08)
[2017-05-27] MEDS: FAMOTIDINE (20 MG) 20 MG TABLET GT SCH ×2 (08:26→21:00)
[2017-05-27] MEDS: CALCITRIOL 0.25 MCG CAPSULE PO SCH (08:26)
[2017-05-27] MEDS: CLOPIDOGREL BISULFATE 75 MG TABLET GT SCH (08:26)
[2017-05-27] MEDS: ASCORBIC ACID 500 MG TABLET GT SCH ×2 (08:26→17:08)
[2017-05-27] MEDS: HYDROCODONE/APAP 10/325MG 1 EA TABLET GT SCH ×2 (10:30→21:00)
[2017-05-27] MEDS: HYDROGEN PEROXIDE 480 ML BOTTLE TP SCH ×2 (11:30→21:00)
[2017-05-27] MEDS: Z GUARD REMEDY 4 OZ OINT TP SCH ×6 (11:30→21:00)
[2017-05-27] MEDS: HYDROGEL DRESSING 90 GM TUBE TP SCH ×2 (11:30→21:00)
[2017-05-27] MEDS: APAP GT PRN (13:02)
[2017-05-27] MEDS: OXYCODONE GT PRN (13:02)
--- NOTE | 2017-05-27 14:30 | NUR ---
IDT meeting held, IDT team reviewed current orders, medications, treatment, laboratory result and plan of care. Resident's sister in law invited to the meeting. No new order except for the treatment change by Dr. Conroy in the patient's sacral, R buttocks and L upper back. New treatment order responding slowly.
[2017-05-27] MEDS: HYDROCODONE/APAP 5/325MG 1 EACH TABLET GT PRN (16:03)
[2017-05-27] MEDS: CRANBERRY GT SCH (21:00)
[2017-05-27] MEDS: LIDOCAINE 5% (PATCH) 1 EA PATCH TP SCH (21:00)
[2017-05-27] MEDS: ENOXAPARIN SODIUM 40 MG/0.4 ML DISP.SYRIN SQ SCH (21:00)
[2017-05-27] MEDS: POLYETHYLENE GLYCOL 3350 17 GM POWD.PACK GT SCH (21:00)
[2017-05-27] MEDS: ZINC SULFATE 220 MG CAPSULE PO SCH (21:00)
[2017-05-27] MEDS: MULTIVIT, IRON, MIN NO. 8, FA 1 TAB GT SCH (21:00)
[2017-05-27] MEDS: ATORVASTATIN CALCIUM 20MG TABLET GT SCH (22:02)
[2017-05-27 22:29] VITALS: BP 99/59
[2017-05-28] MEDS: OXYCODONE GT PRN (01:24)
[2017-05-28] MEDS: APAP GT PRN (01:24)
[2017-05-28] MEDS: METHOCARBAMOL (750MG) 750 MG TABLET GT PRN (02:11)
[2017-05-28] MEDS: CHLORHEXIDINE GLUCONATE 15 ML UDC MM SCH ×2 (07:02→16:31)
[2017-05-28 07:57] VITALS: BP 110/68
[2017-05-28] MEDS: BACLOFEN (10 MG) 10 MG TABLET GT SCH ×4 (08:35→21:08)
[2017-05-28] MEDS: ACIDOPHILUS/BULGARICUS 1 EACH TAB.CHEW GT SCH ×3 (08:35→16:31)
[2017-05-28] MEDS: ESCITALOPRAM OXALATE (10 MG) 10 MG TABLET GT SCH (08:35)
[2017-05-28] MEDS: ASCORBIC ACID 500 MG TABLET GT SCH ×2 (08:36→16:31)
[2017-05-28] MEDS: GABAPENTIN 300 MG CAPSULE GT SCH ×3 (08:36→16:31)
[2017-05-28] MEDS: FAMOTIDINE (20 MG) 20 MG TABLET GT SCH ×2 (08:36→21:08)
[2017-05-28] MEDS: HYDROCODONE/APAP 10/325MG 1 EA TABLET GT SCH ×2 (08:36→21:08)
[2017-05-28] MEDS: CLOPIDOGREL BISULFATE 75 MG TABLET GT SCH (08:36)
[2017-05-28] MEDS: METHADONE HCL 10 MG TABLET GT SCH (08:36)
[2017-05-28] MEDS: CALCIUM CARBONATE 500 MG TAB.CHEW GT SCH ×3 (08:36→16:31)
[2017-05-28] MEDS: METOPROLOL TARTRATE 25 MG TABLET GT SCH ×2 (08:36→16:31)
[2017-05-28] MEDS: CALCITRIOL 0.25 MCG CAPSULE PO SCH (08:37)
[2017-05-28] MEDS: MINERAL OIL/PETROL OINT 396 GM JAR TP SCH ×2 (09:00→21:09)
[2017-05-28] MEDS: Z GUARD REMEDY 4 OZ OINT TP SCH ×6 (09:00→21:09)
[2017-05-28] MEDS: HYDROGEN PEROXIDE 480 ML BOTTLE TP SCH ×2 (09:00→21:09)
[2017-05-28] MEDS: HYDROGEL DRESSING 90 GM TUBE TP SCH ×2 (09:00→21:09)
[2017-05-28] MEDS: MULTIVIT, IRON, MIN NO. 8, FA 1 TAB GT SCH (21:08)
[2017-05-28] MEDS: POLYETHYLENE GLYCOL 3350 17 GM POWD.PACK GT SCH (21:08)
[2017-05-28] MEDS: ZINC SULFATE 220 MG CAPSULE PO SCH (21:08)
[2017-05-28] MEDS: CRANBERRY GT SCH (21:08)
[2017-05-28] MEDS: LIDOCAINE 5% (PATCH) 1 EA PATCH TP SCH (21:09)
[2017-05-28] MEDS: ATORVASTATIN CALCIUM 20MG TABLET GT SCH (21:09)
[2017-05-28] MEDS: ENOXAPARIN SODIUM 40 MG/0.4 ML DISP.SYRIN SQ SCH (21:09)
[2017-05-29] MEDS: OXYCODONE GT PRN (02:46)
[2017-05-29] MEDS: APAP GT PRN (02:46)
[2017-05-29] MEDS: CHLORHEXIDINE GLUCONATE 15 ML UDC MM SCH ×2 (06:04→17:47)
[2017-05-29] MEDS: ASCORBIC ACID 500 MG TABLET GT SCH ×2 (08:05→17:47)
[2017-05-29] MEDS: METOPROLOL TARTRATE 25 MG TABLET GT SCH ×2 (08:05→17:47)
[2017-05-29] MEDS: ACIDOPHILUS/BULGARICUS 1 EACH TAB.CHEW GT SCH ×3 (08:05→17:46)
[2017-05-29] MEDS: METHADONE HCL 10 MG TABLET GT SCH (08:05)
[2017-05-29] MEDS: CALCITRIOL 0.25 MCG CAPSULE PO SCH (08:05)
[2017-05-29] MEDS: GABAPENTIN 300 MG CAPSULE GT SCH ×3 (08:05→17:47)
[2017-05-29] MEDS: CLOPIDOGREL BISULFATE 75 MG TABLET GT SCH (08:05)
[2017-05-29] MEDS: ESCITALOPRAM OXALATE (10 MG) 10 MG TABLET GT SCH (08:05)
[2017-05-29] MEDS: CALCIUM CARBONATE 500 MG TAB.CHEW GT SCH ×3 (08:05→17:47)
[2017-05-29] MEDS: BACLOFEN (10 MG) 10 MG TABLET GT SCH ×4 (08:05→21:28)
[2017-05-29] MEDS: FAMOTIDINE (20 MG) 20 MG TABLET GT SCH ×2 (08:05→21:29)
[2017-05-29] MEDS: MINERAL OIL/PETROL OINT 396 GM JAR TP SCH ×2 (08:06→21:30)
[2017-05-29 08:23] VITALS: BP 136/80
[2017-05-29] MEDS: HYDROCODONE/APAP 10/325MG 1 EA TABLET GT SCH ×2 (11:30→21:29)
[2017-05-29] MEDS: HYDROGEN PEROXIDE 480 ML BOTTLE TP SCH ×2 (12:30→21:30)
[2017-05-29] MEDS: Z GUARD REMEDY 4 OZ OINT TP SCH ×6 (12:30→21:30)
[2017-05-29] MEDS: HYDROGEL DRESSING 90 GM TUBE TP SCH ×2 (12:30→21:30)
[2017-05-29 21:04] VITALS: BP 100/58
[2017-05-29] MEDS: POLYETHYLENE GLYCOL 3350 17 GM POWD.PACK GT SCH (21:28)
[2017-05-29] MEDS: CRANBERRY GT SCH (21:28)
[2017-05-29] MEDS: ENOXAPARIN SODIUM 40 MG/0.4 ML DISP.SYRIN SQ SCH (21:29)
[2017-05-29] MEDS: MULTIVIT, IRON, MIN NO. 8, FA 1 TAB GT SCH (21:29)
[2017-05-29] MEDS: ZINC SULFATE 220 MG CAPSULE PO SCH (21:29)
[2017-05-29] MEDS: LIDOCAINE 5% (PATCH) 1 EA PATCH TP SCH (21:30)
[2017-05-29] MEDS: ATORVASTATIN CALCIUM 20MG TABLET GT SCH (21:30)
[2017-05-30] MEDS: OXYCODONE GT PRN (04:27)
[2017-05-30] MEDS: APAP GT PRN (04:27)
[2017-05-30] MEDS: CHLORHEXIDINE GLUCONATE 15 ML UDC MM SCH ×2 (06:10→17:20)
[2017-05-30 08:01] VITALS: BP 103/64
[2017-05-30] MEDS: ESCITALOPRAM OXALATE (10 MG) 10 MG TABLET GT SCH (08:21)
[2017-05-30] MEDS: BACLOFEN (10 MG) 10 MG TABLET GT SCH ×4 (08:21→21:40)
[2017-05-30] MEDS: ACIDOPHILUS/BULGARICUS 1 EACH TAB.CHEW GT SCH ×3 (08:21→17:19)
[2017-05-30] MEDS: METOPROLOL TARTRATE 25 MG TABLET GT SCH ×2 (08:22→17:20)
[2017-05-30] MEDS: METHADONE HCL 10 MG TABLET GT SCH (08:26)
[2017-05-30] MEDS: GABAPENTIN 300 MG CAPSULE GT SCH ×3 (08:26→17:20)
[2017-05-30] MEDS: ASCORBIC ACID 500 MG TABLET GT SCH ×2 (08:27→17:20)
[2017-05-30] MEDS: CLOPIDOGREL BISULFATE 75 MG TABLET GT SCH (08:27)
[2017-05-30] MEDS: FAMOTIDINE (20 MG) 20 MG TABLET GT SCH ×2 (08:27→21:41)
[2017-05-30] MEDS: CALCIUM CARBONATE 500 MG TAB.CHEW GT SCH ×3 (08:27→17:20)
[2017-05-30] MEDS: CALCITRIOL 0.25 MCG CAPSULE PO SCH (08:27)
[2017-05-30] MEDS: Z GUARD REMEDY 4 OZ OINT TP SCH ×6 (09:00→21:42)
[2017-05-30] MEDS: MINERAL OIL/PETROL OINT 396 GM JAR TP SCH ×2 (09:00→21:41)
[2017-05-30] MEDS: HYDROGEL DRESSING 90 GM TUBE TP SCH ×2 (09:00→21:41)
[2017-05-30] MEDS: HYDROCODONE/APAP 10/325MG 1 EA TABLET GT SCH ×2 (09:00→21:41)
[2017-05-30] MEDS: HYDROGEN PEROXIDE 480 ML BOTTLE TP SCH ×2 (09:00→21:41)
--- NOTE | 2017-05-30 09:15 | NUR ---
Seen and examined by Dr Ugarte - no new orders, to continue with current plan of care.
--- NOTE | 2017-05-30 14:08 | NUR ---
Order obtained to continue with lovenox 40mg SQ daily.
[2017-05-30 20:56] VITALS: BP 105/70
[2017-05-30] MEDS: POLYETHYLENE GLYCOL 3350 17 GM POWD.PACK GT SCH (21:40)
[2017-05-30] MEDS: CRANBERRY GT SCH (21:40)
[2017-05-30] MEDS: ZINC SULFATE 220 MG CAPSULE PO SCH (21:41)
[2017-05-30] MEDS: ENOXAPARIN SODIUM 40 MG/0.4 ML DISP.SYRIN SQ SCH (21:41)
[2017-05-30] MEDS: MULTIVIT, IRON, MIN NO. 8, FA 1 TAB GT SCH (21:41)
[2017-05-30] MEDS: LIDOCAINE 5% (PATCH) 1 EA PATCH TP SCH (21:41)
[2017-05-30] MEDS: ATORVASTATIN CALCIUM 20MG TABLET GT SCH (21:42)
[2017-05-31] MEDS: CHLORHEXIDINE GLUCONATE 15 ML UDC MM SCH ×2 (07:01→16:40)
[2017-05-31 07:43] VITALS: BP 124/74
[2017-05-31] MEDS: GABAPENTIN 300 MG CAPSULE GT SCH ×3 (08:14→16:40)
[2017-05-31] MEDS: ESCITALOPRAM OXALATE (10 MG) 10 MG TABLET GT SCH (08:14)
[2017-05-31] MEDS: METOPROLOL TARTRATE 25 MG TABLET GT SCH ×2 (08:14→17:00)
[2017-05-31] MEDS: ACIDOPHILUS/BULGARICUS 1 EACH TAB.CHEW GT SCH ×3 (08:14→16:40)
[2017-05-31] MEDS: METHADONE HCL 10 MG TABLET GT SCH (08:14)
[2017-05-31] MEDS: BACLOFEN (10 MG) 10 MG TABLET GT SCH ×4 (08:14→20:46)
[2017-05-31] MEDS: CLOPIDOGREL BISULFATE 75 MG TABLET GT SCH (08:15)
[2017-05-31] MEDS: FAMOTIDINE (20 MG) 20 MG TABLET GT SCH ×2 (08:15→20:47)
[2017-05-31] MEDS: CALCIUM CARBONATE 500 MG TAB.CHEW GT SCH ×3 (08:15→16:40)
[2017-05-31] MEDS: CALCITRIOL 0.25 MCG CAPSULE PO SCH (08:15)
[2017-05-31] MEDS: MINERAL OIL/PETROL OINT 396 GM JAR TP SCH ×2 (08:15→21:20)
[2017-05-31] MEDS: ASCORBIC ACID 500 MG TABLET GT SCH ×2 (08:15→16:40)
[2017-05-31] MEDS: HYDROCODONE/APAP 10/325MG 1 EA TABLET GT SCH ×2 (09:14→20:47)
[2017-05-31] MEDS: HYDROGEL DRESSING 90 GM TUBE TP SCH ×2 (10:15→21:20)
[2017-05-31] MEDS: Z GUARD REMEDY 4 OZ OINT TP SCH ×6 (10:15→21:20)
[2017-05-31] MEDS: HYDROGEN PEROXIDE 480 ML BOTTLE TP SCH ×2 (10:15→21:20)
[2017-05-31] MEDS: OXYCODONE GT PRN (12:49)
[2017-05-31] MEDS: APAP GT PRN (12:49)
[2017-05-31 20:07] VITALS: BP 98/57
[2017-05-31] MEDS: POLYETHYLENE GLYCOL 3350 17 GM POWD.PACK GT SCH (20:46)
[2017-05-31] MEDS: CRANBERRY GT SCH (20:46)
[2017-05-31] MEDS: MULTIVIT, IRON, MIN NO. 8, FA 1 TAB GT SCH (20:47)
[2017-05-31] MEDS: ZINC SULFATE 220 MG CAPSULE PO SCH (20:47)
[2017-05-31] MEDS: ENOXAPARIN SODIUM 40 MG/0.4 ML DISP.SYRIN SQ SCH (20:47)
[2017-05-31] MEDS: LIDOCAINE 5% (PATCH) 1 EA PATCH TP SCH (20:48)
[2017-05-31] MEDS: ATORVASTATIN CALCIUM 20MG TABLET GT SCH (21:21)
[2017-06-01] MEDS: METHOCARBAMOL (750MG) 750 MG TABLET GT PRN (06:15)
[2017-06-01] MEDS: CHLORHEXIDINE GLUCONATE 15 ML UDC MM SCH ×2 (06:15→17:00)
[2017-06-01 08:00] VITALS: BP 118/68
[2017-06-01] MEDS: METOPROLOL TARTRATE 25 MG TABLET GT SCH ×2 (09:25→17:00)
[2017-06-01] MEDS: ACIDOPHILUS/BULGARICUS 1 EACH TAB.CHEW GT SCH ×3 (09:25→17:00)
[2017-06-01] MEDS: ESCITALOPRAM OXALATE (10 MG) 10 MG TABLET GT SCH (09:25)
[2017-06-01] MEDS: BACLOFEN (10 MG) 10 MG TABLET GT SCH ×4 (09:25→21:37)
[2017-06-01] MEDS: GABAPENTIN 300 MG CAPSULE GT SCH ×3 (09:26→17:00)
[2017-06-01] MEDS: METHADONE HCL 10 MG TABLET GT SCH (09:26)
[2017-06-01] MEDS: FAMOTIDINE (20 MG) 20 MG TABLET GT SCH ×2 (09:26→21:38)
[2017-06-01] MEDS: ASCORBIC ACID 500 MG TABLET GT SCH ×2 (09:26→17:00)
[2017-06-01] MEDS: HYDROCODONE/APAP 10/325MG 1 EA TABLET GT SCH ×2 (09:26→21:38)
[2017-06-01] MEDS: CALCITRIOL 0.25 MCG CAPSULE PO SCH (09:26)
[2017-06-01] MEDS: CLOPIDOGREL BISULFATE 75 MG TABLET GT SCH (09:26)
[2017-06-01] MEDS: CALCIUM CARBONATE 500 MG TAB.CHEW GT SCH ×3 (09:26→17:00)
[2017-06-01] MEDS: HYDROGEN PEROXIDE 480 ML BOTTLE TP SCH ×2 (10:00→22:20)
[2017-06-01] MEDS: Z GUARD REMEDY 4 OZ OINT TP SCH ×6 (10:00→22:20)
[2017-06-01] MEDS: HYDROGEL DRESSING 90 GM TUBE TP SCH ×2 (10:00→22:20)
[2017-06-01] MEDS: MINERAL OIL/PETROL OINT 396 GM JAR TP SCH ×2 (10:00→21:38)
[2017-06-01] MEDS: MAGNESIUM HYDROXIDE 30 ML UDC GT PRN (19:11)
[2017-06-01] MEDS: LIDOCAINE 5% (PATCH) 1 EA PATCH TP SCH (21:00)
[2017-06-01] MEDS: POLYETHYLENE GLYCOL 3350 17 GM POWD.PACK GT SCH (21:37)
[2017-06-01] MEDS: CRANBERRY GT SCH (21:37)
[2017-06-01] MEDS: MULTIVIT, IRON, MIN NO. 8, FA 1 TAB GT SCH (21:38)
[2017-06-01] MEDS: ZINC SULFATE 220 MG CAPSULE PO SCH (21:38)
[2017-06-01] MEDS: ENOXAPARIN SODIUM 40 MG/0.4 ML DISP.SYRIN SQ SCH (21:38)
[2017-06-01] MEDS: ATORVASTATIN CALCIUM 20MG TABLET GT SCH (21:39)
[2017-06-01 22:04] VITALS: BP 114/72
[2017-06-02] MEDS: CHLORHEXIDINE GLUCONATE 15 ML UDC MM SCH ×2 (07:01→17:20)
[2017-06-02 07:52] VITALS: BP 109/67
--- NOTE | 2017-06-02 08:36 | NUR ---
RAVI visited with the resident and assisted him in sending emails. He was in a good mood and is looking forward to his friend visiting him next . Addendum: 06/02/17 at 0841 by HECTOR RODRIGUES Resident received a voicemail from [employer] and per rciryv-eu-swi Vilma she has made no changes to insurance. Sent an email to Brayden, financial counselor, to verify that his benefits have remained the same.
[2017-06-02] MEDS: ESCITALOPRAM OXALATE (10 MG) 10 MG TABLET GT SCH (09:50)
[2017-06-02] MEDS: ACIDOPHILUS/BULGARICUS 1 EACH TAB.CHEW GT SCH ×3 (09:50→17:19)
[2017-06-02] MEDS: CLOPIDOGREL BISULFATE 75 MG TABLET GT SCH (09:51)
[2017-06-02] MEDS: GABAPENTIN 300 MG CAPSULE GT SCH ×3 (09:51→17:20)
[2017-06-02] MEDS: FAMOTIDINE (20 MG) 20 MG TABLET GT SCH ×2 (09:51→20:32)
[2017-06-02] MEDS: HYDROCODONE/APAP 10/325MG 1 EA TABLET GT SCH ×2 (09:51→20:32)
[2017-06-02] MEDS: CALCIUM CARBONATE 500 MG TAB.CHEW GT SCH ×3 (09:51→17:20)
[2017-06-02] MEDS: BACLOFEN (10 MG) 10 MG TABLET GT SCH ×4 (09:51→20:32)
[2017-06-02] MEDS: ASCORBIC ACID 500 MG TABLET GT SCH ×2 (09:51→17:20)
[2017-06-02] MEDS: METHADONE HCL 10 MG TABLET GT SCH (09:51)
[2017-06-02] MEDS: METOPROLOL TARTRATE 25 MG TABLET GT SCH ×2 (09:51→17:20)
[2017-06-02] MEDS: CALCITRIOL 0.25 MCG CAPSULE PO SCH (09:52)
[2017-06-02] MEDS: HYDROGEL DRESSING 90 GM TUBE TP SCH ×2 (10:25→20:33)
[2017-06-02] MEDS: Z GUARD REMEDY 4 OZ OINT TP SCH ×6 (10:25→20:33)
[2017-06-02] MEDS: HYDROGEN PEROXIDE 480 ML BOTTLE TP SCH ×2 (10:25→20:33)
[2017-06-02] MEDS: MINERAL OIL/PETROL OINT 396 GM JAR TP SCH ×2 (10:25→20:33)
[2017-06-02] MEDS: CRANBERRY GT SCH (20:32)
[2017-06-02] MEDS: MULTIVIT, IRON, MIN NO. 8, FA 1 TAB GT SCH (20:32)
[2017-06-02] MEDS: POLYETHYLENE GLYCOL 3350 17 GM POWD.PACK GT SCH (20:32)
[2017-06-02] MEDS: ZINC SULFATE 220 MG CAPSULE PO SCH (20:32)
[2017-06-02] MEDS: LIDOCAINE 5% (PATCH) 1 EA PATCH TP SCH (20:33)
[2017-06-02] MEDS: MAGNESIUM HYDROXIDE 30 ML UDC GT PRN (20:33)
[2017-06-02] MEDS: ENOXAPARIN SODIUM 40 MG/0.4 ML DISP.SYRIN SQ SCH (20:33)
[2017-06-02] MEDS: ATORVASTATIN CALCIUM 20MG TABLET GT SCH (21:06)
[2017-06-02 22:08] VITALS: BP 114/71
--- NOTE | 2017-06-03 02:26 | NUR ---
PRN GUZMAN CATH 16FR/10 ML CHANGED D/T LEAKING/DISLODGED, TOLERATED WELL BY PATIENT , YELLOW URINE WITH SOME SEDIMENTS FREELY FLOWING, NO SIGNS OF BLEEDING NOTED.
[2017-06-03] MEDS: CHLORHEXIDINE GLUCONATE 15 ML UDC MM SCH ×2 (07:00→17:59)
[2017-06-03 07:59] VITALS: BP 109/67
[2017-06-03] MEDS: ACIDOPHILUS/BULGARICUS 1 EACH TAB.CHEW GT SCH ×3 (09:46→17:58)
[2017-06-03] MEDS: METOPROLOL TARTRATE 25 MG TABLET GT SCH ×2 (09:46→17:59)
[2017-06-03] MEDS: BACLOFEN (10 MG) 10 MG TABLET GT SCH ×4 (09:46→21:00)
[2017-06-03] MEDS: ESCITALOPRAM OXALATE (10 MG) 10 MG TABLET GT SCH (09:46)
[2017-06-03] MEDS: HYDROCODONE/APAP 10/325MG 1 EA TABLET GT SCH ×2 (09:47→21:00)
[2017-06-03] MEDS: CALCIUM CARBONATE 500 MG TAB.CHEW GT SCH ×3 (09:47→17:59)
[2017-06-03] MEDS: GABAPENTIN 300 MG CAPSULE GT SCH ×3 (09:47→17:59)
[2017-06-03] MEDS: CLOPIDOGREL BISULFATE 75 MG TABLET GT SCH (09:47)
[2017-06-03] MEDS: ASCORBIC ACID 500 MG TABLET GT SCH ×2 (09:47→17:59)
[2017-06-03] MEDS: METHADONE HCL 10 MG TABLET GT SCH (09:47)
[2017-06-03] MEDS: FAMOTIDINE (20 MG) 20 MG TABLET GT SCH ×2 (09:47→21:00)
[2017-06-03] MEDS: CALCITRIOL 0.25 MCG CAPSULE PO SCH (09:47)
[2017-06-03] MEDS: MINERAL OIL/PETROL OINT 396 GM JAR TP SCH ×2 (10:20→21:00)
[2017-06-03] MEDS: Z GUARD REMEDY 4 OZ OINT TP SCH ×6 (10:20→21:00)
[2017-06-03] MEDS: HYDROGEN PEROXIDE 480 ML BOTTLE TP SCH ×2 (10:20→21:00)
[2017-06-03] MEDS: HYDROGEL DRESSING 90 GM TUBE TP SCH ×2 (10:20→21:00)
[2017-06-03 20:26] VITALS: BP 112/64
[2017-06-03] MEDS: ENOXAPARIN SODIUM 40 MG/0.4 ML DISP.SYRIN SQ SCH (21:00)
[2017-06-03] MEDS: ZINC SULFATE 220 MG CAPSULE PO SCH (21:00)
[2017-06-03] MEDS: CRANBERRY GT SCH (21:00)
[2017-06-03] MEDS: LIDOCAINE 5% (PATCH) 1 EA PATCH TP SCH (21:00)
[2017-06-03] MEDS: POLYETHYLENE GLYCOL 3350 17 GM POWD.PACK GT SCH (21:00)
[2017-06-03] MEDS: MULTIVIT, IRON, MIN NO. 8, FA 1 TAB GT SCH (21:00)
[2017-06-03] MEDS: ATORVASTATIN CALCIUM 20MG TABLET GT SCH (22:00)
[2017-06-04] MEDS: CHLORHEXIDINE GLUCONATE 15 ML UDC MM SCH ×2 (07:02→17:02)
[2017-06-04 07:39] VITALS: BP 115/57
[2017-06-04] MEDS: BACLOFEN (10 MG) 10 MG TABLET GT SCH ×4 (08:56→21:49)
[2017-06-04] MEDS: METOPROLOL TARTRATE 25 MG TABLET GT SCH ×2 (08:56→17:02)
[2017-06-04] MEDS: ESCITALOPRAM OXALATE (10 MG) 10 MG TABLET GT SCH (08:56)
[2017-06-04] MEDS: ACIDOPHILUS/BULGARICUS 1 EACH TAB.CHEW GT SCH ×3 (08:56→17:01)
[2017-06-04] MEDS: METHADONE HCL 10 MG TABLET GT SCH (08:57)
[2017-06-04] MEDS: GABAPENTIN 300 MG CAPSULE GT SCH ×3 (08:57→17:02)
[2017-06-04] MEDS: ASCORBIC ACID 500 MG TABLET GT SCH ×2 (08:57→17:02)
[2017-06-04] MEDS: CALCITRIOL 0.25 MCG CAPSULE PO SCH (08:57)
[2017-06-04] MEDS: CLOPIDOGREL BISULFATE 75 MG TABLET GT SCH (08:57)
[2017-06-04] MEDS: CALCIUM CARBONATE 500 MG TAB.CHEW GT SCH ×3 (08:57→17:02)
[2017-06-04] MEDS: FAMOTIDINE (20 MG) 20 MG TABLET GT SCH ×2 (08:57→21:50)
[2017-06-04] MEDS: HYDROCODONE/APAP 10/325MG 1 EA TABLET GT SCH ×2 (09:00→21:50)
[2017-06-04] MEDS: HYDROGEL DRESSING 90 GM TUBE TP SCH ×2 (09:00→21:53)
[2017-06-04] MEDS: MINERAL OIL/PETROL OINT 396 GM JAR TP SCH ×2 (09:00→21:53)
[2017-06-04] MEDS: HYDROGEN PEROXIDE 480 ML BOTTLE TP SCH ×2 (09:00→21:54)
[2017-06-04] MEDS: Z GUARD REMEDY 4 OZ OINT TP SCH ×6 (09:00→21:54)
[2017-06-04 19:26] VITALS: BP 131/76
[2017-06-04] MEDS: MULTIVIT, IRON, MIN NO. 8, FA 1 TAB GT SCH (21:49)
[2017-06-04] MEDS: CRANBERRY GT SCH (21:49)
[2017-06-04] MEDS: POLYETHYLENE GLYCOL 3350 17 GM POWD.PACK GT SCH (21:50)
[2017-06-04] MEDS: ZINC SULFATE 220 MG CAPSULE PO SCH (21:50)
[2017-06-04] MEDS: ENOXAPARIN SODIUM 40 MG/0.4 ML DISP.SYRIN SQ SCH (21:53)
[2017-06-04] MEDS: LIDOCAINE 5% (PATCH) 1 EA PATCH TP SCH (21:54)
[2017-06-04] MEDS: ATORVASTATIN CALCIUM 20MG TABLET GT SCH (21:55)
[2017-06-05] MEDS: CHLORHEXIDINE GLUCONATE 15 ML UDC MM SCH ×2 (07:00→16:55)
[2017-06-05 07:49] VITALS: BP 117/71
[2017-06-05] MEDS: ACIDOPHILUS/BULGARICUS 1 EACH TAB.CHEW GT SCH ×3 (08:40→16:55)
[2017-06-05] MEDS: ESCITALOPRAM OXALATE (10 MG) 10 MG TABLET GT SCH (08:40)
[2017-06-05] MEDS: METOPROLOL TARTRATE 25 MG TABLET GT SCH ×2 (08:41→16:55)
[2017-06-05] MEDS: BACLOFEN (10 MG) 10 MG TABLET GT SCH ×4 (08:41→21:37)
[2017-06-05] MEDS: METHADONE HCL 10 MG TABLET GT SCH (08:42)
[2017-06-05] MEDS: CLOPIDOGREL BISULFATE 75 MG TABLET GT SCH (08:42)
[2017-06-05] MEDS: FAMOTIDINE (20 MG) 20 MG TABLET GT SCH ×2 (08:42→21:39)
[2017-06-05] MEDS: CALCIUM CARBONATE 500 MG TAB.CHEW GT SCH ×3 (08:42→16:55)
[2017-06-05] MEDS: GABAPENTIN 300 MG CAPSULE GT SCH ×3 (08:42→16:55)
[2017-06-05] MEDS: CALCITRIOL 0.25 MCG CAPSULE PO SCH (08:43)
[2017-06-05] MEDS: ASCORBIC ACID 500 MG TABLET GT SCH ×2 (08:43→16:55)
[2017-06-05] MEDS: HYDROGEN PEROXIDE 480 ML BOTTLE TP SCH ×2 (09:34→21:41)
[2017-06-05] MEDS: HYDROCODONE/APAP 10/325MG 1 EA TABLET GT SCH ×2 (09:34→21:39)
[2017-06-05] MEDS: HYDROGEL DRESSING 90 GM TUBE TP SCH ×2 (09:34→21:41)
[2017-06-05] MEDS: MINERAL OIL/PETROL OINT 396 GM JAR TP SCH ×2 (09:34→21:40)
[2017-06-05] MEDS: Z GUARD REMEDY 4 OZ OINT TP SCH ×6 (09:35→21:41)
[2017-06-05 20:08] VITALS: BP 112/60
[2017-06-05] MEDS: MULTIVIT, IRON, MIN NO. 8, FA 1 TAB GT SCH (21:37)
[2017-06-05] MEDS: CRANBERRY GT SCH (21:37)
[2017-06-05] MEDS: POLYETHYLENE GLYCOL 3350 17 GM POWD.PACK GT SCH (21:38)
[2017-06-05] MEDS: ZINC SULFATE 220 MG CAPSULE PO SCH (21:39)
[2017-06-05] MEDS: ENOXAPARIN SODIUM 40 MG/0.4 ML DISP.SYRIN SQ SCH (21:40)
[2017-06-05] MEDS: ATORVASTATIN CALCIUM 20MG TABLET GT SCH (21:41)
[2017-06-05] MEDS: LIDOCAINE 5% (PATCH) 1 EA PATCH TP SCH (21:41)
[2017-06-06 07:55] VITALS: BP 127/81
[2017-06-06] MEDS: CHLORHEXIDINE GLUCONATE 15 ML UDC MM SCH ×2 (08:00→17:47)
[2017-06-06] MEDS: ACIDOPHILUS/BULGARICUS 1 EACH TAB.CHEW GT SCH ×3 (08:09→17:45)
[2017-06-06] MEDS: ESCITALOPRAM OXALATE (10 MG) 10 MG TABLET GT SCH (08:09)
[2017-06-06] MEDS: BACLOFEN (10 MG) 10 MG TABLET GT SCH ×4 (08:09→21:50)
[2017-06-06] MEDS: METOPROLOL TARTRATE 25 MG TABLET GT SCH ×2 (08:10→17:00)
[2017-06-06] MEDS: FAMOTIDINE (20 MG) 20 MG TABLET GT SCH ×2 (08:12→21:52)
[2017-06-06] MEDS: GABAPENTIN 300 MG CAPSULE GT SCH ×3 (08:12→17:46)
[2017-06-06] MEDS: METHADONE HCL 10 MG TABLET GT SCH (08:12)
[2017-06-06] MEDS: CLOPIDOGREL BISULFATE 75 MG TABLET GT SCH (08:12)
[2017-06-06] MEDS: ASCORBIC ACID 500 MG TABLET GT SCH ×2 (08:29→17:46)
[2017-06-06] MEDS: HYDROCODONE/APAP 10/325MG 1 EA TABLET GT SCH ×2 (08:29→21:52)
[2017-06-06] MEDS: CALCITRIOL 0.25 MCG CAPSULE PO SCH (08:29)
[2017-06-06] MEDS: CALCIUM CARBONATE 500 MG TAB.CHEW GT SCH ×3 (08:29→17:46)
--- NOTE | 2017-06-06 09:45 | NUR ---
Seen by Dr. Ugarte. Notified him pt's sacral wound is bleeding. Dr. Ugarte ordered to hold Lovenox for 3 days then resume, but continue giving Plavix. Pt aware.
[2017-06-06] MEDS: HYDROCODONE/APAP 5/325MG 1 EACH TABLET GT PRN (11:30)
[2017-06-06] MEDS: APAP GT PRN (15:00)
[2017-06-06] MEDS: OXYCODONE GT PRN (15:00)
[2017-06-06] MEDS: Z GUARD REMEDY 4 OZ OINT TP SCH ×6 (15:30→21:55)
[2017-06-06] MEDS: HYDROGEL DRESSING 90 GM TUBE TP SCH ×2 (15:30→21:55)
[2017-06-06] MEDS: HYDROGEN PEROXIDE 480 ML BOTTLE TP SCH ×2 (15:30→21:55)
[2017-06-06] MEDS: MINERAL OIL/PETROL OINT 396 GM JAR TP SCH ×2 (15:30→21:55)
[2017-06-06 20:17] VITALS: BP 90/58
--- NOTE | 2017-06-06 21:00 | NUR ---
RN NOTES Seen and examined by Dr. Walker with new order for CBC in am.
[2017-06-06] MEDS: MULTIVIT, IRON, MIN NO. 8, FA 1 TAB GT SCH (21:49)
[2017-06-06] MEDS: CRANBERRY GT SCH (21:50)
[2017-06-06] MEDS: POLYETHYLENE GLYCOL 3350 17 GM POWD.PACK GT SCH (21:52)
[2017-06-06] MEDS: LIDOCAINE 5% (PATCH) 1 EA PATCH TP SCH (21:55)
[2017-06-06] MEDS: ZINC SULFATE 220 MG CAPSULE PO SCH (21:55)
[2017-06-06] MEDS: ATORVASTATIN CALCIUM 20MG TABLET GT SCH (21:56)
[2017-06-07 06:51] LABS: BASOPHILS % (AUTO) 0.5 % (0.0-2.0); EOSINOPHILS % (AUTO) 3.8 % (0.0-6.0); HEMATOCRIT 34 % (39-51); HEMOGLOBIN 10.9 g/dL (13.5-17.5); LYMPHOCYTES # (AUTO) 2.2 /CMM (0.8-4.8); LYMPHOCYTES % (AUTO) 29.1 % (20.0-44.0); MEAN CORPUSCULAR HEMOGLOBIN 26 PG (26.0-33.0); MEAN CORPUSCULAR HGB CONC 32 g/dl (31.0-36.0); MEAN CORPUSCULAR VOLUME 83 fL (80-96); MONOCYTES # (AUTO) 0.8 /CMM (0.1-1.30); MONOCYTES % (AUTO) 10.9 % (2.0-12.0); NEUTROPHILS # (AUTO) 4.2 /CMM (1.8-8.9); NEUTROPHILS % (AUTO) 55.7 % (43.0-81.0); PLATELET COUNT (AUTO) 341 /CMM (150-450); RDW COEFFICIENT OF VARIATION 19.8 (11.5-15.0); RED BLOOD CELL COUNT(AUTO) 4.14 MIL/uL (4.5-6.0); WHITE BLOOD COUNT (AUTO) 7.6 K/uL (4.3-11.0)
[2017-06-07] MEDS: CHLORHEXIDINE GLUCONATE 15 ML UDC MM SCH ×2 (07:00→17:09)
[2017-06-07 08:18] VITALS: BP 122/71
[2017-06-07] MEDS: ESCITALOPRAM OXALATE (10 MG) 10 MG TABLET GT SCH (08:34)
[2017-06-07] MEDS: ACIDOPHILUS/BULGARICUS 1 EACH TAB.CHEW GT SCH ×3 (08:34→17:08)
[2017-06-07] MEDS: BACLOFEN (10 MG) 10 MG TABLET GT SCH ×4 (08:34→21:55)
[2017-06-07] MEDS: CALCIUM CARBONATE 500 MG TAB.CHEW GT SCH ×3 (08:35→17:09)
[2017-06-07] MEDS: ASCORBIC ACID 500 MG TABLET GT SCH ×2 (08:35→17:09)
[2017-06-07] MEDS: CALCITRIOL 0.25 MCG CAPSULE PO SCH (08:35)
[2017-06-07] MEDS: CLOPIDOGREL BISULFATE 75 MG TABLET GT SCH (08:35)
[2017-06-07] MEDS: FAMOTIDINE (20 MG) 20 MG TABLET GT SCH ×2 (08:35→21:57)
[2017-06-07] MEDS: METOPROLOL TARTRATE 25 MG TABLET GT SCH ×2 (08:35→17:10)
[2017-06-07] MEDS: GABAPENTIN 300 MG CAPSULE GT SCH ×3 (08:35→17:09)
[2017-06-07] MEDS: METHADONE HCL 10 MG TABLET GT SCH (09:08)
[2017-06-07] MEDS: HYDROCODONE/APAP 10/325MG 1 EA TABLET GT SCH ×2 (12:00→21:57)
[2017-06-07] MEDS: Z GUARD REMEDY 4 OZ OINT TP SCH ×6 (13:00→21:00)
[2017-06-07] MEDS: MINERAL OIL/PETROL OINT 396 GM JAR TP SCH ×2 (13:00→21:58)
[2017-06-07] MEDS: HYDROGEN PEROXIDE 480 ML BOTTLE TP SCH ×2 (13:00→21:58)
[2017-06-07] MEDS: HYDROGEL DRESSING 90 GM TUBE TP SCH ×2 (13:00→21:58)
--- NOTE | 2017-06-07 17:10 | NUR ---
Notified Dr. Walker of CBC result, NNO given.
[2017-06-07 20:18] VITALS: BP 119/71
[2017-06-07] MEDS: LIDOCAINE 5% (PATCH) 1 EA PATCH TP SCH (21:00)
[2017-06-07] MEDS: CRANBERRY GT SCH (21:54)
[2017-06-07] MEDS: POLYETHYLENE GLYCOL 3350 17 GM POWD.PACK GT SCH (21:55)
[2017-06-07] MEDS: MULTIVIT, IRON, MIN NO. 8, FA 1 TAB GT SCH (21:57)
[2017-06-07] MEDS: ZINC SULFATE 220 MG CAPSULE PO SCH (21:58)
[2017-06-07] MEDS: ATORVASTATIN CALCIUM 20MG TABLET GT SCH (22:01)
[2017-06-08] MEDS: CHLORHEXIDINE GLUCONATE 15 ML UDC MM SCH ×2 (07:00→17:57)
[2017-06-08 07:59] VITALS: BP 111/72
[2017-06-08] MEDS: ESCITALOPRAM OXALATE (10 MG) 10 MG TABLET GT SCH (09:01)
[2017-06-08] MEDS: BACLOFEN (10 MG) 10 MG TABLET GT SCH ×4 (09:01→21:35)
[2017-06-08] MEDS: ACIDOPHILUS/BULGARICUS 1 EACH TAB.CHEW GT SCH ×3 (09:01→17:57)
[2017-06-08] MEDS: METOPROLOL TARTRATE 25 MG TABLET GT SCH ×2 (09:01→17:57)
[2017-06-08] MEDS: GABAPENTIN 300 MG CAPSULE GT SCH ×3 (09:02→17:57)
[2017-06-08] MEDS: FAMOTIDINE (20 MG) 20 MG TABLET GT SCH ×2 (09:02→21:38)
[2017-06-08] MEDS: CALCIUM CARBONATE 500 MG TAB.CHEW GT SCH ×3 (09:02→17:57)
[2017-06-08] MEDS: CLOPIDOGREL BISULFATE 75 MG TABLET GT SCH (09:02)
[2017-06-08] MEDS: ASCORBIC ACID 500 MG TABLET GT SCH ×2 (09:02→17:57)
[2017-06-08] MEDS: METHADONE HCL 10 MG TABLET GT SCH (09:02)
[2017-06-08] MEDS: HYDROCODONE/APAP 10/325MG 1 EA TABLET GT SCH ×2 (09:02→21:38)
[2017-06-08] MEDS: CALCITRIOL 0.25 MCG CAPSULE PO SCH (09:02)
[2017-06-08] MEDS: Z GUARD REMEDY 4 OZ OINT TP SCH ×7 (09:30→21:42)
[2017-06-08] MEDS: HYDROGEN PEROXIDE 480 ML BOTTLE TP SCH ×2 (09:30→21:39)
[2017-06-08] MEDS: MINERAL OIL/PETROL OINT 396 GM JAR TP SCH ×2 (09:30→21:38)
[2017-06-08] MEDS: HYDROGEL DRESSING 90 GM TUBE TP SCH (09:30)
--- NOTE | 2017-06-08 12:45 | NUR ---
culinary worker went into the resident's room and introduced herself to the resident's friends. Bharti stated that she was visiting the resident since she was in [facility]. Resident was happy to see his friends and was communicating with them during the visit.
--- NOTE | 2017-06-08 19:14 | NUR ---
Pt was seen by Dr. Rafiq Diaz today. Received order to change treatment to left upper midback wound to Z-guard cream q shift for 30 days and continue Z-guard cream treatment on pt's sacral wound and right buttock wound. He said not to apply any dressings.
[2017-06-08 21:30] VITALS: BP 115/71
[2017-06-08] MEDS: MULTIVIT, IRON, MIN NO. 8, FA 1 TAB GT SCH (21:33)
[2017-06-08] MEDS: CRANBERRY GT SCH (21:34)
[2017-06-08] MEDS: POLYETHYLENE GLYCOL 3350 17 GM POWD.PACK GT SCH (21:36)
[2017-06-08] MEDS: ZINC SULFATE 220 MG CAPSULE PO SCH (21:38)
[2017-06-08] MEDS: LIDOCAINE 5% (PATCH) 1 EA PATCH TP SCH (21:41)
[2017-06-08] MEDS: ATORVASTATIN CALCIUM 20MG TABLET GT SCH (21:42)
[2017-06-09] MEDS: CHLORHEXIDINE GLUCONATE 15 ML UDC MM SCH ×2 (07:00→17:00)
[2017-06-09 07:25] VITALS: BP 103/64
[2017-06-09] MEDS: ACIDOPHILUS/BULGARICUS 1 EACH TAB.CHEW GT SCH ×3 (09:14→17:00)
[2017-06-09] MEDS: BACLOFEN (10 MG) 10 MG TABLET GT SCH ×4 (09:14→21:01)
[2017-06-09] MEDS: ESCITALOPRAM OXALATE (10 MG) 10 MG TABLET GT SCH (09:14)
[2017-06-09] MEDS: CALCITRIOL 0.25 MCG CAPSULE PO SCH (09:15)
[2017-06-09] MEDS: GABAPENTIN 300 MG CAPSULE GT SCH ×3 (09:15→17:00)
[2017-06-09] MEDS: ASCORBIC ACID 500 MG TABLET GT SCH ×2 (09:15→17:00)
[2017-06-09] MEDS: HYDROCODONE/APAP 10/325MG 1 EA TABLET GT SCH ×2 (09:15→21:02)
[2017-06-09] MEDS: FAMOTIDINE (20 MG) 20 MG TABLET GT SCH ×2 (09:15→21:01)
[2017-06-09] MEDS: METHADONE HCL 10 MG TABLET GT SCH (09:15)
[2017-06-09] MEDS: CALCIUM CARBONATE 500 MG TAB.CHEW GT SCH ×3 (09:15→17:00)
[2017-06-09] MEDS: CLOPIDOGREL BISULFATE 75 MG TABLET GT SCH (09:15)
[2017-06-09] MEDS: METOPROLOL TARTRATE 25 MG TABLET GT SCH ×2 (09:15→17:00)
[2017-06-09] MEDS: Z GUARD REMEDY 4 OZ OINT TP SCH ×8 (09:45→21:39)
[2017-06-09] MEDS: HYDROGEN PEROXIDE 480 ML BOTTLE TP SCH ×2 (09:45→21:01)
[2017-06-09] MEDS: MINERAL OIL/PETROL OINT 396 GM JAR TP SCH ×2 (09:45→21:01)
[2017-06-09] MEDS: CRANBERRY GT SCH (21:01)
[2017-06-09] MEDS: LIDOCAINE 5% (PATCH) 1 EA PATCH TP SCH (21:01)
[2017-06-09] MEDS: MULTIVIT, IRON, MIN NO. 8, FA 1 TAB GT SCH (21:01)
[2017-06-09] MEDS: POLYETHYLENE GLYCOL 3350 17 GM POWD.PACK GT SCH (21:01)
[2017-06-09] MEDS: ZINC SULFATE 220 MG CAPSULE PO SCH (21:01)
[2017-06-09] MEDS: ATORVASTATIN CALCIUM 20MG TABLET GT SCH (21:01)
[2017-06-09] MEDS: ENOXAPARIN SODIUM 40 MG/0.4 ML DISP.SYRIN SQ SCH (21:04)
[2017-06-09 21:30] VITALS: BP 121/78
[2017-06-10] MEDS: CHLORHEXIDINE GLUCONATE 15 ML UDC MM SCH ×2 (07:00→16:51)
[2017-06-10] MEDS: ACIDOPHILUS/BULGARICUS 1 EACH TAB.CHEW GT SCH ×3 (09:31→16:51)
[2017-06-10] MEDS: BACLOFEN (10 MG) 10 MG TABLET GT SCH ×4 (09:31→21:15)
[2017-06-10] MEDS: ESCITALOPRAM OXALATE (10 MG) 10 MG TABLET GT SCH (09:31)
[2017-06-10] MEDS: FAMOTIDINE (20 MG) 20 MG TABLET GT SCH ×2 (09:32→21:16)
[2017-06-10] MEDS: HYDROCODONE/APAP 10/325MG 1 EA TABLET GT SCH ×2 (09:32→21:16)
[2017-06-10] MEDS: GABAPENTIN 300 MG CAPSULE GT SCH ×3 (09:32→16:51)
[2017-06-10] MEDS: METHADONE HCL 10 MG TABLET GT SCH (09:32)
[2017-06-10] MEDS: METOPROLOL TARTRATE 25 MG TABLET GT SCH ×2 (09:32→16:51)
[2017-06-10] MEDS: CLOPIDOGREL BISULFATE 75 MG TABLET GT SCH (09:32)
[2017-06-10] MEDS: CALCIUM CARBONATE 500 MG TAB.CHEW GT SCH ×3 (09:32→16:51)
[2017-06-10] MEDS: ASCORBIC ACID 500 MG TABLET GT SCH ×2 (09:33→16:51)
[2017-06-10] MEDS: CALCITRIOL 0.25 MCG CAPSULE PO SCH (09:33)
[2017-06-10] MEDS: HYDROGEN PEROXIDE 480 ML BOTTLE TP SCH ×2 (10:00→21:17)
[2017-06-10] MEDS: Z GUARD REMEDY 4 OZ OINT TP SCH ×8 (10:00→21:30)
[2017-06-10] MEDS: MINERAL OIL/PETROL OINT 396 GM JAR TP SCH ×2 (10:00→21:16)
[2017-06-10 14:30] VITALS: BP 109/72
[2017-06-10] MEDS: POLYETHYLENE GLYCOL 3350 17 GM POWD.PACK GT SCH (21:15)
[2017-06-10] MEDS: CRANBERRY GT SCH (21:15)
[2017-06-10] MEDS: ZINC SULFATE 220 MG CAPSULE PO SCH (21:16)
[2017-06-10] MEDS: ENOXAPARIN SODIUM 40 MG/0.4 ML DISP.SYRIN SQ SCH (21:16)
[2017-06-10] MEDS: MULTIVIT, IRON, MIN NO. 8, FA 1 TAB GT SCH (21:16)
[2017-06-10] MEDS: LIDOCAINE 5% (PATCH) 1 EA PATCH TP SCH (21:17)
[2017-06-10] MEDS: ATORVASTATIN CALCIUM 20MG TABLET GT SCH (21:17)
[2017-06-10 21:51] VITALS: BP 126/77
[2017-06-11] MEDS: CHLORHEXIDINE GLUCONATE 15 ML UDC MM SCH ×2 (07:00→17:24)
[2017-06-11 07:41] VITALS: BP 116/57
[2017-06-11] MEDS: ESCITALOPRAM OXALATE (10 MG) 10 MG TABLET GT SCH (09:09)
[2017-06-11] MEDS: ACIDOPHILUS/BULGARICUS 1 EACH TAB.CHEW GT SCH ×3 (09:09→17:22)
[2017-06-11] MEDS: BACLOFEN (10 MG) 10 MG TABLET GT SCH ×4 (09:09→21:23)
[2017-06-11] MEDS: METOPROLOL TARTRATE 25 MG TABLET GT SCH ×2 (09:10→17:24)
[2017-06-11] MEDS: GABAPENTIN 300 MG CAPSULE GT SCH ×3 (09:10→17:24)
[2017-06-11] MEDS: METHADONE HCL 10 MG TABLET GT SCH (09:10)
[2017-06-11] MEDS: Z GUARD REMEDY 4 OZ OINT TP SCH ×8 (09:11→21:28)
[2017-06-11] MEDS: CALCITRIOL 0.25 MCG CAPSULE PO SCH (09:11)
[2017-06-11] MEDS: CLOPIDOGREL BISULFATE 75 MG TABLET GT SCH (09:11)
[2017-06-11] MEDS: MINERAL OIL/PETROL OINT 396 GM JAR TP SCH ×2 (09:11→21:25)
[2017-06-11] MEDS: CALCIUM CARBONATE 500 MG TAB.CHEW GT SCH ×3 (09:11→17:24)
[2017-06-11] MEDS: HYDROCODONE/APAP 10/325MG 1 EA TABLET GT SCH ×2 (09:11→21:24)
[2017-06-11] MEDS: FAMOTIDINE (20 MG) 20 MG TABLET GT SCH ×2 (09:11→21:24)
[2017-06-11] MEDS: HYDROGEN PEROXIDE 480 ML BOTTLE TP SCH ×2 (09:11→21:25)
[2017-06-11] MEDS: ASCORBIC ACID 500 MG TABLET GT SCH ×2 (09:11→17:24)
[2017-06-11 19:55] VITALS: BP 119/53
[2017-06-11] MEDS: MULTIVIT, IRON, MIN NO. 8, FA 1 TAB GT SCH (21:22)
[2017-06-11] MEDS: CRANBERRY GT SCH (21:23)
[2017-06-11] MEDS: POLYETHYLENE GLYCOL 3350 17 GM POWD.PACK GT SCH (21:23)
[2017-06-11] MEDS: ZINC SULFATE 220 MG CAPSULE PO SCH (21:24)
[2017-06-11] MEDS: ENOXAPARIN SODIUM 40 MG/0.4 ML DISP.SYRIN SQ SCH (21:25)
[2017-06-11] MEDS: ATORVASTATIN CALCIUM 20MG TABLET GT SCH (21:28)
[2017-06-11] MEDS: LIDOCAINE 5% (PATCH) 1 EA PATCH TP SCH (21:55)
[2017-06-12] MEDS: OXYCODONE GT PRN (00:34)
[2017-06-12] MEDS: APAP GT PRN (00:34)
--- NOTE | 2017-06-12 00:35 | NUR ---
PT IS C/O SEVERE PAIN IN THE BACK,VERBALLY SAYING THAT HE WANTS TO , HE DOES'NT WANT TO SUFFER ANYMORE, PT IS GIVEN HIS PRN MEDS FOR SEVERE PAIN OXYCODONE 325MG. CONTINUE TO MONITOR PT FOR SEVERE PAIN , FUAD PT IN AN HOUR IF PRN MED IS EFFECTIVE.
[2017-06-12] MEDS: CHLORHEXIDINE GLUCONATE 15 ML UDC MM SCH ×2 (06:17→17:01)
[2017-06-12 07:45] VITALS: BP 116/69
[2017-06-12] MEDS: ESCITALOPRAM OXALATE (10 MG) 10 MG TABLET GT SCH (08:25)
[2017-06-12] MEDS: ACIDOPHILUS/BULGARICUS 1 EACH TAB.CHEW GT SCH ×3 (08:25→17:00)
[2017-06-12] MEDS: METOPROLOL TARTRATE 25 MG TABLET GT SCH ×2 (08:26→17:01)
[2017-06-12] MEDS: BACLOFEN (10 MG) 10 MG TABLET GT SCH ×4 (08:26→20:31)
[2017-06-12] MEDS: METHADONE HCL 10 MG TABLET GT SCH (08:27)
[2017-06-12] MEDS: CLOPIDOGREL BISULFATE 75 MG TABLET GT SCH (08:28)
[2017-06-12] MEDS: GABAPENTIN 300 MG CAPSULE GT SCH ×3 (08:28→17:01)
[2017-06-12] MEDS: FAMOTIDINE (20 MG) 20 MG TABLET GT SCH ×2 (08:28→20:32)
[2017-06-12] MEDS: CALCIUM CARBONATE 500 MG TAB.CHEW GT SCH ×3 (08:29→17:01)
[2017-06-12] MEDS: CALCITRIOL 0.25 MCG CAPSULE PO SCH (08:29)
[2017-06-12] MEDS: ASCORBIC ACID 500 MG TABLET GT SCH ×2 (08:29→17:01)
[2017-06-12] MEDS: HYDROCODONE/APAP 10/325MG 1 EA TABLET GT SCH ×2 (09:00→20:32)
[2017-06-12] MEDS: Z GUARD REMEDY 4 OZ OINT TP SCH ×8 (09:30→21:06)
[2017-06-12] MEDS: MINERAL OIL/PETROL OINT 396 GM JAR TP SCH ×2 (10:00→21:05)
[2017-06-12] MEDS: HYDROGEN PEROXIDE 480 ML BOTTLE TP SCH ×2 (11:00→21:05)
[2017-06-12 20:07] VITALS: BP 112/70
[2017-06-12] MEDS: POLYETHYLENE GLYCOL 3350 17 GM POWD.PACK GT SCH (20:31)
[2017-06-12] MEDS: CRANBERRY GT SCH (20:31)
[2017-06-12] MEDS: ENOXAPARIN SODIUM 40 MG/0.4 ML DISP.SYRIN SQ SCH (20:32)
[2017-06-12] MEDS: LIDOCAINE 5% (PATCH) 1 EA PATCH TP SCH (20:32)
[2017-06-12] MEDS: ZINC SULFATE 220 MG CAPSULE PO SCH (20:32)
[2017-06-12] MEDS: MULTIVIT, IRON, MIN NO. 8, FA 1 TAB GT SCH (20:32)
[2017-06-12] MEDS: ATORVASTATIN CALCIUM 20MG TABLET GT SCH (21:06)
[2017-06-13] MEDS: CHLORHEXIDINE GLUCONATE 15 ML UDC MM SCH ×2 (06:05→16:47)
[2017-06-13 07:45] VITALS: BP 118/68
[2017-06-13] MEDS: ESCITALOPRAM OXALATE (10 MG) 10 MG TABLET GT SCH (09:00)
[2017-06-13] MEDS: METOPROLOL TARTRATE 25 MG TABLET GT SCH ×2 (09:00→16:46)
[2017-06-13] MEDS: ACIDOPHILUS/BULGARICUS 1 EACH TAB.CHEW GT SCH ×3 (09:00→16:45)
[2017-06-13] MEDS: CALCITRIOL 0.25 MCG CAPSULE PO SCH (09:00)
[2017-06-13] MEDS: FAMOTIDINE (20 MG) 20 MG TABLET GT SCH ×2 (09:00→21:23)
[2017-06-13] MEDS: CLOPIDOGREL BISULFATE 75 MG TABLET GT SCH (09:00)
[2017-06-13] MEDS: ASCORBIC ACID 500 MG TABLET GT SCH ×2 (09:00→16:47)
[2017-06-13] MEDS: GABAPENTIN 300 MG CAPSULE GT SCH ×3 (09:00→16:47)
[2017-06-13] MEDS: CALCIUM CARBONATE 500 MG TAB.CHEW GT SCH ×3 (09:00→16:47)
[2017-06-13] MEDS: BACLOFEN (10 MG) 10 MG TABLET GT SCH ×4 (09:00→21:21)
[2017-06-13] MEDS: HYDROCODONE/APAP 10/325MG 1 EA TABLET GT SCH ×2 (09:00→21:23)
[2017-06-13] MEDS: METHADONE HCL 10 MG TABLET GT SCH (09:00)
[2017-06-13] MEDS: Z GUARD REMEDY 4 OZ OINT TP SCH ×8 (09:30→21:24)
[2017-06-13] MEDS: HYDROGEN PEROXIDE 480 ML BOTTLE TP SCH ×2 (09:30→21:24)
[2017-06-13] MEDS: MINERAL OIL/PETROL OINT 396 GM JAR TP SCH ×2 (09:30→21:24)
--- NOTE | 2017-06-13 15:00 | NUR ---
Pt was noted with right calf open skin. Received order to apply triple antibiotic ointment and cover with Mepilex dressing q shift for 14 days. Pt aware of it.
[2017-06-13] MEDS: APAP GT PRN (15:30)
[2017-06-13] MEDS: OXYCODONE GT PRN (15:30)
[2017-06-13 19:58] VITALS: BP 117/62
[2017-06-13] MEDS: CRANBERRY GT SCH (21:21)
[2017-06-13] MEDS: POLYETHYLENE GLYCOL 3350 17 GM POWD.PACK GT SCH (21:22)
[2017-06-13] MEDS: ZINC SULFATE 220 MG CAPSULE PO SCH (21:23)
[2017-06-13] MEDS: ENOXAPARIN SODIUM 40 MG/0.4 ML DISP.SYRIN SQ SCH (21:23)
[2017-06-13] MEDS: MULTIVIT, IRON, MIN NO. 8, FA 1 TAB GT SCH (21:23)
[2017-06-13] MEDS: NEOMY SULF/BACITRAC ZN/POLY 15 GM TUBE TP SCH (21:24)
[2017-06-13] MEDS: LIDOCAINE 5% (PATCH) 1 EA PATCH TP SCH (21:24)
[2017-06-13] MEDS: ATORVASTATIN CALCIUM 20MG TABLET GT SCH (21:24)
[2017-06-14] MEDS: APAP GT PRN (01:54)
[2017-06-14] MEDS: OXYCODONE GT PRN (01:54)
[2017-06-14] MEDS: CHLORHEXIDINE GLUCONATE 15 ML UDC MM SCH ×2 (06:35→17:00)
--- NOTE | 2017-06-14 07:04 | NUR ---
@around 2400 pt woke up and c/o severe pain in tne wound site, given his prn meds for severe pain oxycodone 325mg, its effective pt is noted sleeping again .
[2017-06-14 07:51] VITALS: BP 124/76
[2017-06-14] MEDS: ACIDOPHILUS/BULGARICUS 1 EACH TAB.CHEW GT SCH ×3 (09:00→17:00)
[2017-06-14] MEDS: CLOPIDOGREL BISULFATE 75 MG TABLET GT SCH (09:00)
[2017-06-14] MEDS: METOPROLOL TARTRATE 25 MG TABLET GT SCH ×2 (09:00→17:00)
[2017-06-14] MEDS: Z GUARD REMEDY 4 OZ OINT TP SCH ×8 (09:00→21:47)
[2017-06-14] MEDS: FAMOTIDINE (20 MG) 20 MG TABLET GT SCH ×2 (09:00→21:41)
[2017-06-14] MEDS: HYDROGEN PEROXIDE 480 ML BOTTLE TP SCH ×2 (09:00→21:44)
[2017-06-14] MEDS: CALCITRIOL 0.25 MCG CAPSULE PO SCH (09:00)
[2017-06-14] MEDS: HYDROCODONE/APAP 10/325MG 1 EA TABLET GT SCH ×2 (09:00→21:48)
[2017-06-14] MEDS: ASCORBIC ACID 500 MG TABLET GT SCH ×2 (09:00→17:00)
[2017-06-14] MEDS: CALCIUM CARBONATE 500 MG TAB.CHEW GT SCH ×3 (09:00→17:00)
[2017-06-14] MEDS: ESCITALOPRAM OXALATE (10 MG) 10 MG TABLET GT SCH (09:00)
[2017-06-14] MEDS: GABAPENTIN 300 MG CAPSULE GT SCH ×3 (09:00→17:00)
[2017-06-14] MEDS: NEOMY SULF/BACITRAC ZN/POLY 15 GM TUBE TP SCH ×2 (09:00→21:45)
[2017-06-14] MEDS: BACLOFEN (10 MG) 10 MG TABLET GT SCH ×4 (09:00→21:40)
[2017-06-14] MEDS: MINERAL OIL/PETROL OINT 396 GM JAR TP SCH ×2 (09:00→21:43)
[2017-06-14] MEDS: METHADONE HCL 10 MG TABLET GT SCH (09:00)
[2017-06-14 21:30] VITALS: BP 119/69
[2017-06-14] MEDS: CRANBERRY GT SCH (21:40)
[2017-06-14] MEDS: POLYETHYLENE GLYCOL 3350 17 GM POWD.PACK GT SCH (21:40)
[2017-06-14] MEDS: MULTIVIT, IRON, MIN NO. 8, FA 1 TAB GT SCH (21:41)
[2017-06-14] MEDS: ZINC SULFATE 220 MG CAPSULE PO SCH (21:43)
[2017-06-14] MEDS: ENOXAPARIN SODIUM 40 MG/0.4 ML DISP.SYRIN SQ SCH (21:43)
[2017-06-14] MEDS: LIDOCAINE 5% (PATCH) 1 EA PATCH TP SCH (21:44)
[2017-06-14] MEDS: ATORVASTATIN CALCIUM 20MG TABLET GT SCH (21:47)
[2017-06-15] MEDS: METHOCARBAMOL (750MG) 750 MG TABLET GT PRN (01:30)
[2017-06-15] MEDS: CHLORHEXIDINE GLUCONATE 15 ML UDC MM SCH ×2 (06:33→17:08)
[2017-06-15 07:40] VITALS: BP 125/64
--- NOTE | 2017-06-15 09:37 | NUR ---
Notified Dr. Ugarte that pt is complaining of sore throat. Dr. Ugarte ordered to give Cepacol throat lozenges q 2 hours PRN for throat discomfort.
[2017-06-15] MEDS: BACLOFEN (10 MG) 10 MG TABLET GT SCH ×4 (09:53→21:29)
[2017-06-15] MEDS: ACIDOPHILUS/BULGARICUS 1 EACH TAB.CHEW GT SCH ×3 (09:53→17:08)
[2017-06-15] MEDS: ESCITALOPRAM OXALATE (10 MG) 10 MG TABLET GT SCH (09:53)
[2017-06-15] MEDS: FAMOTIDINE (20 MG) 20 MG TABLET GT SCH ×2 (09:54→21:30)
[2017-06-15] MEDS: GABAPENTIN 300 MG CAPSULE GT SCH ×3 (09:54→17:08)
[2017-06-15] MEDS: METHADONE HCL 10 MG TABLET GT SCH (09:54)
[2017-06-15] MEDS: CALCIUM CARBONATE 500 MG TAB.CHEW GT SCH ×3 (09:54→17:08)
[2017-06-15] MEDS: ASCORBIC ACID 500 MG TABLET GT SCH ×2 (09:54→17:08)
[2017-06-15] MEDS: CLOPIDOGREL BISULFATE 75 MG TABLET GT SCH (09:54)
[2017-06-15] MEDS: CALCITRIOL 0.25 MCG CAPSULE PO SCH (09:54)
[2017-06-15] MEDS: METOPROLOL TARTRATE 25 MG TABLET GT SCH ×2 (09:54→17:08)
[2017-06-15] MEDS: HYDROCODONE/APAP 10/325MG 1 EA TABLET GT SCH ×2 (12:30→21:29)
[2017-06-15] MEDS: Z GUARD REMEDY 4 OZ OINT TP SCH ×5 (13:30→21:30)
[2017-06-15] MEDS: MINERAL OIL/PETROL OINT 396 GM JAR TP SCH ×2 (13:30→21:30)
[2017-06-15] MEDS: HYDROGEN PEROXIDE 480 ML BOTTLE TP SCH ×2 (13:30→21:30)
[2017-06-15] MEDS: NEOMY SULF/BACITRAC ZN/POLY 15 GM TUBE TP SCH ×2 (13:30→21:30)
[2017-06-15] MEDS ORDERED: MENTHOL/CETYLPYRD (CEPACOL) 1 LOZ LOZENGE MM PRN (14:00)
[2017-06-15] MEDS: POLYETHYLENE GLYCOL 3350 17 GM POWD.PACK GT SCH (21:29)
[2017-06-15] MEDS: CRANBERRY GT SCH (21:29)
[2017-06-15] MEDS: LIDOCAINE 5% (PATCH) 1 EA PATCH TP SCH (21:30)
[2017-06-15] MEDS: MULTIVIT, IRON, MIN NO. 8, FA 1 TAB GT SCH (21:30)
[2017-06-15] MEDS: ATORVASTATIN CALCIUM 20MG TABLET GT SCH (21:30)
[2017-06-15] MEDS: ENOXAPARIN SODIUM 40 MG/0.4 ML DISP.SYRIN SQ SCH (21:30)
[2017-06-15] MEDS: ZINC SULFATE 220 MG CAPSULE PO SCH (21:30)
[2017-06-15 22:10] VITALS: BP 118/74
[2017-06-16] MEDS: METHOCARBAMOL (750MG) 750 MG TABLET GT PRN (05:31)
[2017-06-16] MEDS: MAGNESIUM HYDROXIDE 30 ML UDC GT PRN (05:31)
[2017-06-16] MEDS: CHLORHEXIDINE GLUCONATE 15 ML UDC MM SCH ×2 (07:47→16:27)
[2017-06-16] MEDS: HYDROCODONE/APAP 10/325MG 1 EA TABLET GT SCH ×2 (07:47→21:51)
[2017-06-16] MEDS: CALCIUM CARBONATE 500 MG TAB.CHEW GT SCH ×3 (07:54→16:29)
[2017-06-16] MEDS: ACIDOPHILUS/BULGARICUS 1 EACH TAB.CHEW GT SCH ×3 (07:54→16:26)
[2017-06-16] MEDS: HYDROGEN PEROXIDE 480 ML BOTTLE TP SCH ×2 (07:55→21:52)
[2017-06-16] MEDS: MINERAL OIL/PETROL OINT 396 GM JAR TP SCH ×2 (07:55→21:52)
[2017-06-16] MEDS: ASCORBIC ACID 500 MG TABLET GT SCH ×2 (07:55→16:27)
[2017-06-16] MEDS: CALCITRIOL 0.25 MCG CAPSULE PO SCH (07:55)
[2017-06-16] MEDS: Z GUARD REMEDY 4 OZ OINT TP SCH ×6 (07:56→21:52)
[2017-06-16] MEDS: NEOMY SULF/BACITRAC ZN/POLY 15 GM TUBE TP SCH ×2 (07:56→21:52)
[2017-06-16] MEDS: GABAPENTIN 300 MG CAPSULE GT SCH ×3 (07:56→16:27)
[2017-06-16] MEDS: ESCITALOPRAM OXALATE (10 MG) 10 MG TABLET GT SCH (07:56)
[2017-06-16] MEDS: METOPROLOL TARTRATE 25 MG TABLET GT SCH ×2 (07:57→16:30)
[2017-06-16] MEDS: CLOPIDOGREL BISULFATE 75 MG TABLET GT SCH (07:57)
[2017-06-16] MEDS: FAMOTIDINE (20 MG) 20 MG TABLET GT SCH ×2 (07:58→21:51)
[2017-06-16] MEDS: BACLOFEN (10 MG) 10 MG TABLET GT SCH ×4 (07:58→21:50)
[2017-06-16] MEDS: METHADONE HCL 10 MG TABLET GT SCH (08:00)
[2017-06-16 08:11] VITALS: BP 139/87
--- NOTE | 2017-06-16 08:39 | NUR ---
Resident's friend Bharti called the SW and informed her that she will be out of town from June 28, 2017- July 31. She noted that she will not be sending the resident emails during this time and will be unavailable to speak to the resident during this time. She noted that she will be sending him some postcards but no chocolate as she usually does. SW will inform the resident.
--- NOTE | 2017-06-16 09:13 | NUR ---
nursery worker met with the resident and explored his current feelings. Resident stated that he says he wants to when he is in extreme pain and noted that he usually has pain in the buttocks area. Explained importance of letting the staff reposition him when it is offered to him every two hours and informed him that he is being medicated with pain medication. Listened to the resident's feelings and he denied that he has feelings of wanting to . He stated that he became frustrated when he voiced that as his voice was raspy and he had a difficult time vocalizing to his nurse as she was about to leave the room. Resident stated he needs to be suctioned and SW informed RT who stated he will go and suction the resident.
[2017-06-16] MEDS: OXYCODONE GT PRN (14:02)
[2017-06-16] MEDS: APAP GT PRN (14:02)
[2017-06-16] MEDS: HYDROCODONE/APAP 5/325MG 1 EACH TABLET GT PRN (18:53)
[2017-06-16 21:17] VITALS: BP 116/78
[2017-06-16] MEDS: CRANBERRY GT SCH (21:50)
[2017-06-16] MEDS: POLYETHYLENE GLYCOL 3350 17 GM POWD.PACK GT SCH (21:50)
[2017-06-16] MEDS: ZINC SULFATE 220 MG CAPSULE PO SCH (21:51)
[2017-06-16] MEDS: MULTIVIT, IRON, MIN NO. 8, FA 1 TAB GT SCH (21:51)
[2017-06-16] MEDS: ENOXAPARIN SODIUM 40 MG/0.4 ML DISP.SYRIN SQ SCH (21:52)
[2017-06-16] MEDS: LIDOCAINE 5% (PATCH) 1 EA PATCH TP SCH (21:52)
[2017-06-16] MEDS: ATORVASTATIN CALCIUM 20MG TABLET GT SCH (21:53)
[2017-06-17] MEDS: METHOCARBAMOL (750MG) 750 MG TABLET GT PRN (02:02)
[2017-06-17] MEDS: CHLORHEXIDINE GLUCONATE 15 ML UDC MM SCH ×2 (07:30→16:32)
[2017-06-17 07:44] VITALS: BP 123/88
[2017-06-17] MEDS: NEOMY SULF/BACITRAC ZN/POLY 15 GM TUBE TP SCH ×2 (09:00→21:50)
[2017-06-17] MEDS: CALCITRIOL 0.25 MCG CAPSULE PO SCH (09:00)
[2017-06-17] MEDS: METHADONE HCL 10 MG TABLET GT SCH (09:00)
[2017-06-17] MEDS: FAMOTIDINE (20 MG) 20 MG TABLET GT SCH ×2 (09:00→21:49)
[2017-06-17] MEDS: METOPROLOL TARTRATE 25 MG TABLET GT SCH ×2 (09:00→16:31)
[2017-06-17] MEDS: CLOPIDOGREL BISULFATE 75 MG TABLET GT SCH (09:00)
[2017-06-17] MEDS: CALCIUM CARBONATE 500 MG TAB.CHEW GT SCH ×3 (09:00→16:32)
[2017-06-17] MEDS: GABAPENTIN 300 MG CAPSULE GT SCH ×3 (09:00→16:32)
[2017-06-17] MEDS: Z GUARD REMEDY 4 OZ OINT TP SCH ×6 (09:00→21:51)
[2017-06-17] MEDS: MINERAL OIL/PETROL OINT 396 GM JAR TP SCH ×2 (09:00→21:50)
[2017-06-17] MEDS: BACLOFEN (10 MG) 10 MG TABLET GT SCH ×4 (09:00→21:49)
[2017-06-17] MEDS: HYDROCODONE/APAP 10/325MG 1 EA TABLET GT SCH ×2 (09:00→21:49)
[2017-06-17] MEDS: HYDROGEN PEROXIDE 480 ML BOTTLE TP SCH ×2 (09:00→21:50)
[2017-06-17] MEDS: ESCITALOPRAM OXALATE (10 MG) 10 MG TABLET GT SCH (09:00)
[2017-06-17] MEDS: ASCORBIC ACID 500 MG TABLET GT SCH ×2 (09:00→16:32)
[2017-06-17] MEDS: ACIDOPHILUS/BULGARICUS 1 EACH TAB.CHEW GT SCH ×3 (09:00→16:24)
--- NOTE | 2017-06-17 12:09 | NUR ---
RT NOTE PT TRACHEOSTOMY TUBE CHANGED PER MONTHLY PROTOCOL. PT HAS SHILEY 8 DCT CUFFED TRACH TUBE IN PLACE. CUFF DEFLATED. PT AWAKE AND ALERT. NO DISTRESS NOTED. MINIMAL BLEEDING NOTED. RN NOTIFIED. BILATERAL CHEST RISE NOTED. WILL CONTINUE TO MONITOR.
[2017-06-17 20:12] VITALS: BP 97/61
[2017-06-17] MEDS: CRANBERRY GT SCH (21:49)
[2017-06-17] MEDS: MULTIVIT, IRON, MIN NO. 8, FA 1 TAB GT SCH (21:49)
[2017-06-17] MEDS: POLYETHYLENE GLYCOL 3350 17 GM POWD.PACK GT SCH (21:49)
[2017-06-17] MEDS: ZINC SULFATE 220 MG CAPSULE PO SCH (21:49)
[2017-06-17] MEDS: ENOXAPARIN SODIUM 40 MG/0.4 ML DISP.SYRIN SQ SCH (21:50)
[2017-06-17] MEDS: LIDOCAINE 5% (PATCH) 1 EA PATCH TP SCH (21:50)
[2017-06-17] MEDS: ATORVASTATIN CALCIUM 20MG TABLET GT SCH (21:51)
[2017-06-18] MEDS: METHOCARBAMOL (750MG) 750 MG TABLET GT PRN (01:37)
[2017-06-18] MEDS: HYDROCODONE/APAP 5/325MG 1 EACH TABLET GT PRN (04:19)
[2017-06-18] MEDS: CHLORHEXIDINE GLUCONATE 15 ML UDC MM SCH ×2 (07:00→17:36)
[2017-06-18 07:29] VITALS: BP 134/80
[2017-06-18] MEDS: CALCITRIOL 0.25 MCG CAPSULE PO SCH (08:05)
[2017-06-18] MEDS: ESCITALOPRAM OXALATE (10 MG) 10 MG TABLET GT SCH (08:16)
[2017-06-18] MEDS: ACIDOPHILUS/BULGARICUS 1 EACH TAB.CHEW GT SCH ×3 (08:16→17:34)
[2017-06-18] MEDS: METOPROLOL TARTRATE 25 MG TABLET GT SCH ×2 (08:17→17:35)
[2017-06-18] MEDS: BACLOFEN (10 MG) 10 MG TABLET GT SCH ×4 (08:17→21:39)
[2017-06-18] MEDS: GABAPENTIN 300 MG CAPSULE GT SCH ×3 (08:19→17:35)
[2017-06-18] MEDS: METHADONE HCL 10 MG TABLET GT SCH (08:19)
[2017-06-18] MEDS: ASCORBIC ACID 500 MG TABLET GT SCH ×2 (08:19→17:35)
[2017-06-18] MEDS: CLOPIDOGREL BISULFATE 75 MG TABLET GT SCH (08:19)
[2017-06-18] MEDS: CALCIUM CARBONATE 500 MG TAB.CHEW GT SCH ×3 (08:19→17:35)
[2017-06-18] MEDS: FAMOTIDINE (20 MG) 20 MG TABLET GT SCH ×2 (08:19→21:40)
[2017-06-18] MEDS: NEOMY SULF/BACITRAC ZN/POLY 15 GM TUBE TP SCH ×2 (09:00→21:42)
[2017-06-18] MEDS: Z GUARD REMEDY 4 OZ OINT TP SCH ×6 (09:00→21:42)
[2017-06-18] MEDS: HYDROGEN PEROXIDE 480 ML BOTTLE TP SCH ×2 (09:00→21:41)
[2017-06-18] MEDS: MINERAL OIL/PETROL OINT 396 GM JAR TP SCH ×2 (09:00→21:41)
[2017-06-18] MEDS: HYDROCODONE/APAP 10/325MG 1 EA TABLET GT SCH ×2 (10:00→21:40)
[2017-06-18 19:22] VITALS: BP 126/84
[2017-06-18] MEDS: MULTIVIT, IRON, MIN NO. 8, FA 1 TAB GT SCH (21:36)
[2017-06-18] MEDS: CRANBERRY GT SCH (21:37)
[2017-06-18] MEDS: POLYETHYLENE GLYCOL 3350 17 GM POWD.PACK GT SCH (21:39)
[2017-06-18] MEDS: ZINC SULFATE 220 MG CAPSULE PO SCH (21:41)
[2017-06-18] MEDS: ENOXAPARIN SODIUM 40 MG/0.4 ML DISP.SYRIN SQ SCH (21:41)
[2017-06-18] MEDS: ATORVASTATIN CALCIUM 20MG TABLET GT SCH (21:42)
[2017-06-18] MEDS: LIDOCAINE 5% (PATCH) 1 EA PATCH TP SCH (21:42)
[2017-06-19] MEDS: APAP GT PRN (04:27)
[2017-06-19] MEDS: OXYCODONE GT PRN (04:27)
[2017-06-19] MEDS: CHLORHEXIDINE GLUCONATE 15 ML UDC MM SCH ×2 (06:27→17:00)
[2017-06-19 07:24] VITALS: BP 103/70
[2017-06-19] MEDS: CALCIUM CARBONATE 500 MG TAB.CHEW GT SCH ×3 (09:00→17:00)
[2017-06-19] MEDS: METHADONE HCL 10 MG TABLET GT SCH (09:00)
[2017-06-19] MEDS: METOPROLOL TARTRATE 25 MG TABLET GT SCH ×2 (09:00→17:00)
[2017-06-19] MEDS: ASCORBIC ACID 500 MG TABLET GT SCH ×2 (09:00→17:00)
[2017-06-19] MEDS: ESCITALOPRAM OXALATE (10 MG) 10 MG TABLET GT SCH (09:00)
[2017-06-19] MEDS: BACLOFEN (10 MG) 10 MG TABLET GT SCH ×4 (09:00→21:00)
[2017-06-19] MEDS: CALCITRIOL 0.25 MCG CAPSULE PO SCH (09:00)
[2017-06-19] MEDS: MINERAL OIL/PETROL OINT 396 GM JAR TP SCH ×2 (09:00→21:00)
[2017-06-19] MEDS: CLOPIDOGREL BISULFATE 75 MG TABLET GT SCH (09:00)
[2017-06-19] MEDS: ACIDOPHILUS/BULGARICUS 1 EACH TAB.CHEW GT SCH ×3 (09:00→16:59)
[2017-06-19] MEDS: FAMOTIDINE (20 MG) 20 MG TABLET GT SCH ×2 (09:00→21:00)
[2017-06-19] MEDS: GABAPENTIN 300 MG CAPSULE GT SCH ×3 (09:00→17:00)
--- NOTE | 2017-06-19 10:15 | NUR ---
tea tree farm worker informed the resident's ntpvkv-gx-rya Vilma that there is an IDT meeting this Friday June 23, 2017 from 12:30-1:30PM. She noted that she will be coming towards the end of the meeting but will let the social media editor know when she arrives. Vilma will be in attendance at Monday's IDT meeting.
--- NOTE | 2017-06-19 12:15 | NUR ---
Notified Dr. Walker that pt's wounds are bleeding. Received order to hold Lovenox until bleeding resolves. Also received order to do CBC.
[2017-06-19 13:53] LABS: BASOPHILS # (AUTO) 0.2 /CMM (0.0-0.2); BASOPHILS % (AUTO) 2.1 % (0.0-2.0); EOSINOPHILS % (AUTO) 2.8 % (0.0-6.0); HEMATOCRIT 34 % (39-51); LYMPHOCYTES # (AUTO) 1.4 /CMM (0.8-4.8); LYMPHOCYTES % (AUTO) 17.5 % (20.0-44.0); MEAN CORPUSCULAR HEMOGLOBIN 26 PG (26.0-33.0); MEAN CORPUSCULAR HGB CONC 32 g/dl (31.0-36.0); MEAN CORPUSCULAR VOLUME 82 fL (80-96); MONOCYTES # (AUTO) 0.6 /CMM (0.1-1.30); MONOCYTES % (AUTO) 7.2 % (2.0-12.0); NEUTROPHILS # (AUTO) 5.7 /CMM (1.8-8.9); NEUTROPHILS % (AUTO) 70.4 % (43.0-81.0); PLATELET COUNT (AUTO) 411 /CMM (150-450); RDW COEFFICIENT OF VARIATION 19.4 (11.5-15.0); RED BLOOD CELL COUNT(AUTO) 4.17 MIL/uL (4.5-6.0); WHITE BLOOD COUNT (AUTO) 8.1 K/uL (4.3-11.0)
[2017-06-19] MEDS: HYDROCODONE/APAP 10/325MG 1 EA TABLET GT SCH ×2 (14:00→23:15)
[2017-06-19] MEDS: HYDROGEN PEROXIDE 480 ML BOTTLE TP SCH ×2 (15:00→21:00)
[2017-06-19] MEDS: Z GUARD REMEDY 4 OZ OINT TP SCH ×6 (15:00→21:00)
[2017-06-19] MEDS: NEOMY SULF/BACITRAC ZN/POLY 15 GM TUBE TP SCH ×2 (15:00→21:00)
[2017-06-19 20:30] VITALS: BP 98/53
[2017-06-19] MEDS: MULTIVIT, IRON, MIN NO. 8, FA 1 TAB GT SCH (21:00)
[2017-06-19] MEDS: LIDOCAINE 5% (PATCH) 1 EA PATCH TP SCH (21:00)
[2017-06-19] MEDS: ZINC SULFATE 220 MG CAPSULE PO SCH (21:00)
[2017-06-19] MEDS: POLYETHYLENE GLYCOL 3350 17 GM POWD.PACK GT SCH (21:00)
[2017-06-19] MEDS: CRANBERRY GT SCH (21:00)
[2017-06-19] MEDS: ATORVASTATIN CALCIUM 20MG TABLET GT SCH (22:57)
[2017-06-20] MEDS: CHLORHEXIDINE GLUCONATE 15 ML UDC MM SCH ×2 (07:00→17:40)
[2017-06-20 08:00] VITALS: BP 125/69
[2017-06-20] MEDS: ACIDOPHILUS/BULGARICUS 1 EACH TAB.CHEW GT SCH ×3 (09:20→17:40)
[2017-06-20] MEDS: ESCITALOPRAM OXALATE (10 MG) 10 MG TABLET GT SCH (09:20)
[2017-06-20] MEDS: METOPROLOL TARTRATE 25 MG TABLET GT SCH ×2 (09:20→17:40)
[2017-06-20] MEDS: BACLOFEN (10 MG) 10 MG TABLET GT SCH ×4 (09:20→20:44)
[2017-06-20] MEDS: FAMOTIDINE (20 MG) 20 MG TABLET GT SCH ×2 (09:21→20:45)
[2017-06-20] MEDS: CLOPIDOGREL BISULFATE 75 MG TABLET GT SCH (09:21)
[2017-06-20] MEDS: GABAPENTIN 300 MG CAPSULE GT SCH ×3 (09:21→17:40)
[2017-06-20] MEDS: METHADONE HCL 10 MG TABLET GT SCH (09:21)
[2017-06-20] MEDS: CALCITRIOL 0.25 MCG CAPSULE PO SCH (09:22)
[2017-06-20] MEDS: ASCORBIC ACID 500 MG TABLET GT SCH ×2 (09:22→17:40)
[2017-06-20] MEDS: CALCIUM CARBONATE 500 MG TAB.CHEW GT SCH ×3 (09:22→17:40)
[2017-06-20] MEDS: HYDROCODONE/APAP 10/325MG 1 EA TABLET GT SCH ×2 (11:00→20:45)
[2017-06-20] MEDS: Z GUARD REMEDY 4 OZ OINT TP SCH ×6 (11:30→21:27)
[2017-06-20] MEDS: HYDROGEN PEROXIDE 480 ML BOTTLE TP SCH ×2 (11:30→21:26)
[2017-06-20] MEDS: MINERAL OIL/PETROL OINT 396 GM JAR TP SCH ×2 (11:30→21:26)
[2017-06-20] MEDS: NEOMY SULF/BACITRAC ZN/POLY 15 GM TUBE TP SCH ×2 (11:30→21:27)
[2017-06-20] MEDS: APAP GT PRN (15:53)
[2017-06-20] MEDS: OXYCODONE GT PRN (15:53)
[2017-06-20 20:14] VITALS: BP 127/67
[2017-06-20] MEDS: CRANBERRY GT SCH (20:44)
[2017-06-20] MEDS: POLYETHYLENE GLYCOL 3350 17 GM POWD.PACK GT SCH (20:44)
[2017-06-20] MEDS: MULTIVIT, IRON, MIN NO. 8, FA 1 TAB GT SCH (20:47)
[2017-06-20] MEDS: ZINC SULFATE 220 MG CAPSULE PO SCH (20:47)
[2017-06-20] MEDS: LIDOCAINE 5% (PATCH) 1 EA PATCH TP SCH (21:27)
[2017-06-20] MEDS: ATORVASTATIN CALCIUM 20MG TABLET GT SCH (21:27)
[2017-06-21] MEDS: HYDROCODONE/APAP 5/325MG 1 EACH TABLET GT PRN (04:23)
[2017-06-21] MEDS: CHLORHEXIDINE GLUCONATE 15 ML UDC MM SCH ×2 (06:10→17:00)
[2017-06-21] MEDS: ACIDOPHILUS/BULGARICUS 1 EACH TAB.CHEW GT SCH ×3 (09:52→17:00)
[2017-06-21] MEDS: ESCITALOPRAM OXALATE (10 MG) 10 MG TABLET GT SCH (09:52)
[2017-06-21] MEDS: BACLOFEN (10 MG) 10 MG TABLET GT SCH ×4 (09:53→20:51)
[2017-06-21] MEDS: METOPROLOL TARTRATE 25 MG TABLET GT SCH ×2 (09:53→17:00)
[2017-06-21] MEDS: ASCORBIC ACID 500 MG TABLET GT SCH ×2 (09:55→17:00)
[2017-06-21] MEDS: METHADONE HCL 10 MG TABLET GT SCH (09:55)
[2017-06-21] MEDS: CALCIUM CARBONATE 500 MG TAB.CHEW GT SCH ×3 (09:55→17:00)
[2017-06-21] MEDS: GABAPENTIN 300 MG CAPSULE GT SCH ×3 (09:55→17:00)
[2017-06-21] MEDS: FAMOTIDINE (20 MG) 20 MG TABLET GT SCH ×2 (09:55→20:52)
[2017-06-21] MEDS: CALCITRIOL 0.25 MCG CAPSULE PO SCH (09:55)
[2017-06-21] MEDS: CLOPIDOGREL BISULFATE 75 MG TABLET GT SCH (09:56)
[2017-06-21] MEDS: HYDROCODONE/APAP 10/325MG 1 EA TABLET GT SCH ×2 (09:56→20:52)
[2017-06-21] MEDS: HYDROGEN PEROXIDE 480 ML BOTTLE TP SCH ×2 (11:00→21:24)
[2017-06-21] MEDS: Z GUARD REMEDY 4 OZ OINT TP SCH ×6 (11:00→21:25)
[2017-06-21] MEDS: MINERAL OIL/PETROL OINT 396 GM JAR TP SCH ×2 (11:00→21:24)
[2017-06-21] MEDS: NEOMY SULF/BACITRAC ZN/POLY 15 GM TUBE TP SCH ×2 (11:00→21:24)
[2017-06-21] MEDS: MAGNESIUM HYDROXIDE 30 ML UDC GT PRN (18:07)
[2017-06-21 19:43] VITALS: BP 100/67
[2017-06-21] MEDS: POLYETHYLENE GLYCOL 3350 17 GM POWD.PACK GT SCH (20:51)
[2017-06-21] MEDS: CRANBERRY GT SCH (20:51)
[2017-06-21] MEDS: ZINC SULFATE 220 MG CAPSULE PO SCH (20:52)
[2017-06-21] MEDS: MULTIVIT, IRON, MIN NO. 8, FA 1 TAB GT SCH (20:52)
[2017-06-21] MEDS: LIDOCAINE 5% (PATCH) 1 EA PATCH TP SCH (21:24)
[2017-06-21] MEDS: ATORVASTATIN CALCIUM 20MG TABLET GT SCH (21:25)
[2017-06-21] MEDS: METHOCARBAMOL (750MG) 750 MG TABLET GT PRN (23:27)
[2017-06-22] MEDS: CHLORHEXIDINE GLUCONATE 15 ML UDC MM SCH ×2 (06:10→17:00)
[2017-06-22 07:52] VITALS: BP 150/68
[2017-06-22] MEDS: ACIDOPHILUS/BULGARICUS 1 EACH TAB.CHEW GT SCH ×3 (09:00→17:00)
[2017-06-22] MEDS: CLOPIDOGREL BISULFATE 75 MG TABLET GT SCH (09:00)
[2017-06-22] MEDS: ESCITALOPRAM OXALATE (10 MG) 10 MG TABLET GT SCH (09:00)
[2017-06-22] MEDS: FAMOTIDINE (20 MG) 20 MG TABLET GT SCH ×2 (09:00→21:47)
[2017-06-22] MEDS: GABAPENTIN 300 MG CAPSULE GT SCH ×3 (09:00→17:00)
[2017-06-22] MEDS: CALCIUM CARBONATE 500 MG TAB.CHEW GT SCH ×3 (09:00→17:00)
[2017-06-22] MEDS: BACLOFEN (10 MG) 10 MG TABLET GT SCH ×4 (09:00→21:46)
[2017-06-22] MEDS: METHADONE HCL 10 MG TABLET GT SCH (09:00)
[2017-06-22] MEDS: ASCORBIC ACID 500 MG TABLET GT SCH ×2 (09:00→17:00)
[2017-06-22] MEDS: CALCITRIOL 0.25 MCG CAPSULE PO SCH (09:00)
[2017-06-22] MEDS: METOPROLOL TARTRATE 25 MG TABLET GT SCH ×2 (09:00→17:00)
[2017-06-22] MEDS: HYDROCODONE/APAP 10/325MG 1 EA TABLET GT SCH ×2 (10:00→21:47)
[2017-06-22] MEDS: Z GUARD REMEDY 4 OZ OINT TP SCH ×6 (11:00→21:47)
[2017-06-22] MEDS: MINERAL OIL/PETROL OINT 396 GM JAR TP SCH ×2 (11:00→21:47)
[2017-06-22] MEDS: HYDROGEN PEROXIDE 480 ML BOTTLE TP SCH ×2 (11:00→21:47)
[2017-06-22] MEDS: NEOMY SULF/BACITRAC ZN/POLY 15 GM TUBE TP SCH ×2 (11:00→21:47)
[2017-06-22 19:55] VITALS: BP 101/51
[2017-06-22] MEDS: CRANBERRY GT SCH (21:46)
[2017-06-22] MEDS: POLYETHYLENE GLYCOL 3350 17 GM POWD.PACK GT SCH (21:46)
[2017-06-22] MEDS: ZINC SULFATE 220 MG CAPSULE PO SCH (21:47)
[2017-06-22] MEDS: LIDOCAINE 5% (PATCH) 1 EA PATCH TP SCH (21:47)
[2017-06-22] MEDS: MULTIVIT, IRON, MIN NO. 8, FA 1 TAB GT SCH (21:47)
[2017-06-22] MEDS: ATORVASTATIN CALCIUM 20MG TABLET GT SCH (21:47)
[2017-06-23] MEDS: CHLORHEXIDINE GLUCONATE 15 ML UDC MM SCH ×2 (07:00→17:00)
[2017-06-23 08:00] VITALS: BP 123/67
[2017-06-23] MEDS: HYDROCODONE/APAP 10/325MG 1 EA TABLET GT SCH ×2 (09:00→21:19)
[2017-06-23] MEDS: ESCITALOPRAM OXALATE (10 MG) 10 MG TABLET GT SCH (09:20)
[2017-06-23] MEDS: BACLOFEN (10 MG) 10 MG TABLET GT SCH ×4 (09:20→21:18)
[2017-06-23] MEDS: ACIDOPHILUS/BULGARICUS 1 EACH TAB.CHEW GT SCH ×3 (09:20→17:00)
[2017-06-23] MEDS: METOPROLOL TARTRATE 25 MG TABLET GT SCH ×2 (09:21→17:00)
[2017-06-23] MEDS: CLOPIDOGREL BISULFATE 75 MG TABLET GT SCH (09:26)
[2017-06-23] MEDS: MINERAL OIL/PETROL OINT 396 GM JAR TP SCH ×2 (09:26→21:19)
[2017-06-23] MEDS: CALCITRIOL 0.25 MCG CAPSULE PO SCH (09:26)
[2017-06-23] MEDS: GABAPENTIN 300 MG CAPSULE GT SCH ×3 (09:26→17:00)
[2017-06-23] MEDS: FAMOTIDINE (20 MG) 20 MG TABLET GT SCH ×2 (09:26→21:19)
[2017-06-23] MEDS: CALCIUM CARBONATE 500 MG TAB.CHEW GT SCH ×3 (09:26→17:00)
[2017-06-23] MEDS: METHADONE HCL 10 MG TABLET GT SCH (09:26)
[2017-06-23] MEDS: ASCORBIC ACID 500 MG TABLET GT SCH ×2 (09:26→17:00)
[2017-06-23] MEDS: HYDROGEN PEROXIDE 480 ML BOTTLE TP SCH ×2 (10:00→21:19)
[2017-06-23] MEDS: Z GUARD REMEDY 4 OZ OINT TP SCH ×6 (10:00→21:20)
[2017-06-23] MEDS: NEOMY SULF/BACITRAC ZN/POLY 15 GM TUBE TP SCH ×2 (10:00→21:19)
--- NOTE | 2017-06-23 15:23 | NUR ---
INTERDISCIPLINARY TEAM CONFERENCE (IDT) was held today. Ydadnb-ek-fzi Vilma attended in person. Dr. Ugarte and the interdisciplinary team reviewed the current plan of care in detail. Orders as well as treatment and medications were reviewed. Dr. Conroy is following the resident due to his wounds and resident will receive a protein supplement for wound management. Lovenox will resume today as it was previously being held. No new orders were given. No concerns were raised by Vilma.
[2017-06-23] MEDS: POLYETHYLENE GLYCOL 3350 17 GM POWD.PACK GT SCH (21:18)
[2017-06-23] MEDS: CRANBERRY GT SCH (21:18)
[2017-06-23] MEDS: LIDOCAINE 5% (PATCH) 1 EA PATCH TP SCH (21:19)
[2017-06-23] MEDS: ZINC SULFATE 220 MG CAPSULE PO SCH (21:19)
[2017-06-23] MEDS: ENOXAPARIN SODIUM 40 MG/0.4 ML DISP.SYRIN SQ SCH (21:19)
[2017-06-23] MEDS: MULTIVIT, IRON, MIN NO. 8, FA 1 TAB GT SCH (21:19)
[2017-06-23] MEDS: ATORVASTATIN CALCIUM 20MG TABLET GT SCH (21:20)
[2017-06-23 23:13] VITALS: BP 106/70
[2017-06-24] MEDS: APAP GT PRN (00:02)
[2017-06-24] MEDS: OXYCODONE GT PRN (00:02)
[2017-06-24] MEDS: CHLORHEXIDINE GLUCONATE 15 ML UDC MM SCH ×2 (06:07→17:34)
[2017-06-24 07:59] VITALS: BP 106/69
[2017-06-24] MEDS: ACIDOPHILUS/BULGARICUS 1 EACH TAB.CHEW GT SCH ×3 (08:39→17:32)
[2017-06-24] MEDS: ESCITALOPRAM OXALATE (10 MG) 10 MG TABLET GT SCH (08:42)
[2017-06-24] MEDS: BACLOFEN (10 MG) 10 MG TABLET GT SCH ×4 (08:42→21:51)
[2017-06-24] MEDS: GABAPENTIN 300 MG CAPSULE GT SCH ×3 (08:43→17:33)
[2017-06-24] MEDS: FAMOTIDINE (20 MG) 20 MG TABLET GT SCH ×2 (08:43→21:51)
[2017-06-24] MEDS: CLOPIDOGREL BISULFATE 75 MG TABLET GT SCH (08:44)
[2017-06-24] MEDS: CALCIUM CARBONATE 500 MG TAB.CHEW GT SCH ×3 (08:44→17:33)
[2017-06-24] MEDS: ASCORBIC ACID 500 MG TABLET GT SCH ×2 (08:44→17:34)
[2017-06-24] MEDS: PROSOURCE / PROSTAT (PYXIS) 30 ML UDC GT SCH ×3 (08:44→17:33)
[2017-06-24] MEDS: MINERAL OIL/PETROL OINT 396 GM JAR TP SCH ×2 (08:47→21:53)
[2017-06-24] MEDS: HYDROGEN PEROXIDE 480 ML BOTTLE TP SCH ×2 (08:47→21:53)
[2017-06-24] MEDS: CALCITRIOL 0.25 MCG CAPSULE PO SCH (08:47)
[2017-06-24] MEDS: NEOMY SULF/BACITRAC ZN/POLY 15 GM TUBE TP SCH ×2 (08:47→21:53)
[2017-06-24] MEDS: Z GUARD REMEDY 4 OZ OINT TP SCH ×6 (08:48→21:53)
[2017-06-24] MEDS: METOPROLOL TARTRATE 25 MG TABLET GT SCH ×2 (08:49→17:00)
[2017-06-24] MEDS: HYDROCODONE/APAP 10/325MG 1 EA TABLET GT SCH ×2 (08:54→21:52)
[2017-06-24] MEDS: METHADONE HCL 10 MG TABLET GT SCH (08:57)
[2017-06-24] MEDS: HYDROCODONE/APAP 5/325MG 1 EACH TABLET GT PRN ×2 (13:14→18:07)
[2017-06-24 19:47] VITALS: BP 119/77
[2017-06-24] MEDS: POLYETHYLENE GLYCOL 3350 17 GM POWD.PACK GT SCH (21:51)
[2017-06-24] MEDS: CRANBERRY GT SCH (21:51)
[2017-06-24] MEDS: MULTIVIT, IRON, MIN NO. 8, FA 1 TAB GT SCH (21:52)
[2017-06-24] MEDS: ZINC SULFATE 220 MG CAPSULE PO SCH (21:52)
[2017-06-24] MEDS: ENOXAPARIN SODIUM 40 MG/0.4 ML DISP.SYRIN SQ SCH (21:52)
[2017-06-24] MEDS: ATORVASTATIN CALCIUM 20MG TABLET GT SCH (21:53)
[2017-06-24] MEDS: LIDOCAINE 5% (PATCH) 1 EA PATCH TP SCH (21:53)
[2017-06-25] MEDS: HYDROCODONE/APAP 5/325MG 1 EACH TABLET GT PRN (01:34)
[2017-06-25] MEDS: CHLORHEXIDINE GLUCONATE 15 ML UDC MM SCH ×2 (07:00→17:26)
[2017-06-25 07:39] VITALS: BP 116/69
[2017-06-25] MEDS: HYDROCODONE/APAP 10/325MG 1 EA TABLET GT SCH ×2 (09:00→21:34)
[2017-06-25] MEDS: BACLOFEN (10 MG) 10 MG TABLET GT SCH ×4 (09:33→21:31)
[2017-06-25] MEDS: ACIDOPHILUS/BULGARICUS 1 EACH TAB.CHEW GT SCH ×3 (09:33→17:26)
[2017-06-25] MEDS: METOPROLOL TARTRATE 25 MG TABLET GT SCH ×2 (09:33→17:26)
[2017-06-25] MEDS: ESCITALOPRAM OXALATE (10 MG) 10 MG TABLET GT SCH (09:33)
[2017-06-25] MEDS: CALCIUM CARBONATE 500 MG TAB.CHEW GT SCH ×3 (09:34→17:26)
[2017-06-25] MEDS: GABAPENTIN 300 MG CAPSULE GT SCH ×3 (09:34→17:26)
[2017-06-25] MEDS: FAMOTIDINE (20 MG) 20 MG TABLET GT SCH ×2 (09:34→21:31)
[2017-06-25] MEDS: METHADONE HCL 10 MG TABLET GT SCH (09:34)
[2017-06-25] MEDS: CLOPIDOGREL BISULFATE 75 MG TABLET GT SCH (09:34)
[2017-06-25] MEDS: NEOMY SULF/BACITRAC ZN/POLY 15 GM TUBE TP SCH ×2 (09:34→21:31)
[2017-06-25] MEDS: PROSOURCE / PROSTAT (PYXIS) 30 ML UDC GT SCH ×3 (09:34→17:26)
[2017-06-25] MEDS: MINERAL OIL/PETROL OINT 396 GM JAR TP SCH ×2 (09:34→21:31)
[2017-06-25] MEDS: ASCORBIC ACID 500 MG TABLET GT SCH ×2 (09:34→17:26)
[2017-06-25] MEDS: HYDROGEN PEROXIDE 480 ML BOTTLE TP SCH ×2 (09:34→21:31)
[2017-06-25] MEDS: CALCITRIOL 0.25 MCG CAPSULE PO SCH (09:34)
[2017-06-25] MEDS: Z GUARD REMEDY 4 OZ OINT TP SCH ×7 (09:35→21:32)
[2017-06-25 19:40] VITALS: BP 118/71
[2017-06-25] MEDS: LIDOCAINE 5% (PATCH) 1 EA PATCH TP SCH (21:31)
[2017-06-25] MEDS: ENOXAPARIN SODIUM 40 MG/0.4 ML DISP.SYRIN SQ SCH (21:31)
[2017-06-25] MEDS: CRANBERRY GT SCH (21:31)
[2017-06-25] MEDS: POLYETHYLENE GLYCOL 3350 17 GM POWD.PACK GT SCH (21:31)
[2017-06-25] MEDS: ZINC SULFATE 220 MG CAPSULE PO SCH (21:31)
[2017-06-25] MEDS: MULTIVIT, IRON, MIN NO. 8, FA 1 TAB GT SCH (21:31)
[2017-06-25] MEDS: ATORVASTATIN CALCIUM 20MG TABLET GT SCH (21:32)
[2017-06-26] MEDS: APAP GT PRN ×2 (00:21→14:07)
[2017-06-26] MEDS: OXYCODONE GT PRN ×2 (00:21→14:07)
[2017-06-26] MEDS: CHLORHEXIDINE GLUCONATE 15 ML UDC MM SCH ×2 (07:00→17:08)
[2017-06-26] MEDS: ACIDOPHILUS/BULGARICUS 1 EACH TAB.CHEW GT SCH ×3 (08:56→17:08)
[2017-06-26] MEDS: ESCITALOPRAM OXALATE (10 MG) 10 MG TABLET GT SCH (08:56)
[2017-06-26] MEDS: GABAPENTIN 300 MG CAPSULE GT SCH ×3 (08:56→17:08)
[2017-06-26] MEDS: METHADONE HCL 10 MG TABLET GT SCH (08:56)
[2017-06-26] MEDS: BACLOFEN (10 MG) 10 MG TABLET GT SCH ×4 (08:56→21:09)
[2017-06-26] MEDS: METOPROLOL TARTRATE 25 MG TABLET GT SCH ×2 (09:10→17:00)
[2017-06-26] MEDS: FAMOTIDINE (20 MG) 20 MG TABLET GT SCH ×2 (09:11→21:09)
[2017-06-26] MEDS: PROSOURCE / PROSTAT (PYXIS) 30 ML UDC GT SCH ×3 (09:11→17:08)
[2017-06-26] MEDS: ASCORBIC ACID 500 MG TABLET GT SCH ×2 (09:11→17:08)
[2017-06-26] MEDS: CLOPIDOGREL BISULFATE 75 MG TABLET GT SCH (09:11)
[2017-06-26] MEDS: CALCIUM CARBONATE 500 MG TAB.CHEW GT SCH ×3 (09:11→17:08)
[2017-06-26] MEDS: MINERAL OIL/PETROL OINT 396 GM JAR TP SCH ×2 (09:11→21:11)
[2017-06-26] MEDS: CALCITRIOL 0.25 MCG CAPSULE PO SCH (09:11)
[2017-06-26] MEDS: HYDROCODONE/APAP 10/325MG 1 EA TABLET GT SCH ×2 (12:40→21:11)
[2017-06-26] MEDS: HYDROGEN PEROXIDE 480 ML BOTTLE TP SCH ×2 (12:40→21:11)
[2017-06-26] MEDS: NEOMY SULF/BACITRAC ZN/POLY 15 GM TUBE TP SCH ×2 (12:40→21:11)
[2017-06-26] MEDS: Z GUARD REMEDY 4 OZ OINT TP SCH ×8 (12:40→21:11)
--- NOTE | 2017-06-26 13:00 | NUR ---
Left message for Dr. Rafiq Diaz to reassess pt's wounds. Pt has a new redness/excoriation on his upper back.
--- NOTE | 2017-06-26 17:00 | NUR ---
Pt was seen by CARLI Tapia. Received new treatment orders for pt's wounds. Addendum: 06/26/17 at 1920 by WINIFRED GARCÍA RN Per CARLI Mcknight, pt's redness/excoriation on the upper back is moisture-associated skin damage caused by pt's sweat. She ordered Nystatin powder to keep the area dry.
[2017-06-26 20:06] VITALS: BP 116/71
[2017-06-26] MEDS: ZINC SULFATE 220 MG CAPSULE PO SCH (21:09)
[2017-06-26] MEDS: POLYETHYLENE GLYCOL 3350 17 GM POWD.PACK GT SCH (21:09)
[2017-06-26] MEDS: MULTIVIT, IRON, MIN NO. 8, FA 1 TAB GT SCH (21:09)
[2017-06-26] MEDS: CRANBERRY GT SCH (21:09)
[2017-06-26] MEDS: ENOXAPARIN SODIUM 40 MG/0.4 ML DISP.SYRIN SQ SCH (21:10)
[2017-06-26] MEDS: ATORVASTATIN CALCIUM 20MG TABLET GT SCH (21:11)
[2017-06-26] MEDS: LIDOCAINE 5% (PATCH) 1 EA PATCH TP SCH (21:11)
[2017-06-27 07:46] VITALS: BP 126/69
[2017-06-27] MEDS: CHLORHEXIDINE GLUCONATE 15 ML UDC MM SCH ×2 (08:00→16:32)
[2017-06-27] MEDS: ESCITALOPRAM OXALATE (10 MG) 10 MG TABLET GT SCH (08:10)
[2017-06-27] MEDS: ACIDOPHILUS/BULGARICUS 1 EACH TAB.CHEW GT SCH ×3 (08:10→16:34)
[2017-06-27] MEDS: METOPROLOL TARTRATE 25 MG TABLET GT SCH ×2 (08:11→16:31)
[2017-06-27] MEDS: BACLOFEN (10 MG) 10 MG TABLET GT SCH ×4 (08:11→20:37)
[2017-06-27] MEDS: METHADONE HCL 10 MG TABLET GT SCH (08:12)
[2017-06-27] MEDS: FAMOTIDINE (20 MG) 20 MG TABLET GT SCH ×2 (08:13→20:38)
[2017-06-27] MEDS: GABAPENTIN 300 MG CAPSULE GT SCH ×3 (08:13→16:34)
[2017-06-27] MEDS: CLOPIDOGREL BISULFATE 75 MG TABLET GT SCH (08:13)
[2017-06-27] MEDS: PROSOURCE / PROSTAT (PYXIS) 30 ML UDC GT SCH ×3 (08:13→16:34)
[2017-06-27] MEDS: ASCORBIC ACID 500 MG TABLET GT SCH ×2 (08:14→16:32)
[2017-06-27] MEDS: CALCIUM CARBONATE 500 MG TAB.CHEW GT SCH ×3 (08:14→16:35)
[2017-06-27] MEDS: CALCITRIOL 0.25 MCG CAPSULE PO SCH (08:14)
[2017-06-27] MEDS: HYDROCODONE/APAP 10/325MG 1 EA TABLET GT SCH ×2 (14:15→20:38)
[2017-06-27] MEDS: SILVER SULFADIAZINE CREAM 25 GM TUBE TP SCH (14:45)
[2017-06-27] MEDS: Z GUARD REMEDY 4 OZ OINT TP SCH ×7 (14:45→21:21)
[2017-06-27] MEDS: NYSTATIN/TRIAMCIN 15 GM CREAM 15 GM TUBE TP SCH (14:45)
[2017-06-27] MEDS: HYDROGEN PEROXIDE 480 ML BOTTLE TP SCH ×2 (14:45→20:40)
[2017-06-27] MEDS: MINERAL OIL/PETROL OINT 396 GM JAR TP SCH ×2 (14:45→20:40)
[2017-06-27] MEDS: NEOMY SULF/BACITRAC ZN/POLY 15 GM TUBE TP SCH (14:45)
[2017-06-27] MEDS: NYSTATIN TOP POWDER 15 GM BOTTLE TP SCH (14:45)
[2017-06-27] MEDS: OXYCODONE GT PRN (18:00)
[2017-06-27] MEDS: APAP GT PRN (18:00)
[2017-06-27 20:11] VITALS: BP 101/62
[2017-06-27] MEDS: CRANBERRY GT SCH (20:37)
[2017-06-27] MEDS: POLYETHYLENE GLYCOL 3350 17 GM POWD.PACK GT SCH (20:37)
[2017-06-27] MEDS: ZINC SULFATE 220 MG CAPSULE PO SCH (20:39)
[2017-06-27] MEDS: MULTIVIT, IRON, MIN NO. 8, FA 1 TAB GT SCH (20:39)
[2017-06-27] MEDS: ENOXAPARIN SODIUM 40 MG/0.4 ML DISP.SYRIN SQ SCH (20:40)
[2017-06-27] MEDS: LIDOCAINE 5% (PATCH) 1 EA PATCH TP SCH (20:40)
[2017-06-27] MEDS: ATORVASTATIN CALCIUM 20MG TABLET GT SCH (21:21)
[2017-06-27] MEDS: METHOCARBAMOL (750MG) 750 MG TABLET GT PRN (23:24)
[2017-06-28] MEDS: CHLORHEXIDINE GLUCONATE 15 ML UDC MM SCH ×2 (06:18→17:00)
[2017-06-28 07:41] VITALS: BP 126/71
[2017-06-28] MEDS: NYSTATIN/TRIAMCIN 15 GM CREAM 15 GM TUBE TP SCH (09:00)
[2017-06-28] MEDS: Z GUARD REMEDY 4 OZ OINT TP SCH ×6 (09:00→21:21)
[2017-06-28] MEDS: NYSTATIN TOP POWDER 15 GM BOTTLE TP SCH (09:00)
[2017-06-28] MEDS: SILVER SULFADIAZINE CREAM 25 GM TUBE TP SCH (09:00)
[2017-06-28] MEDS: BACLOFEN (10 MG) 10 MG TABLET GT SCH ×4 (09:58→20:40)
[2017-06-28] MEDS: METOPROLOL TARTRATE 25 MG TABLET GT SCH ×2 (09:58→17:00)
[2017-06-28] MEDS: ESCITALOPRAM OXALATE (10 MG) 10 MG TABLET GT SCH (09:58)
[2017-06-28] MEDS: ACIDOPHILUS/BULGARICUS 1 EACH TAB.CHEW GT SCH ×3 (09:58→17:00)
[2017-06-28] MEDS: MINERAL OIL/PETROL OINT 396 GM JAR TP SCH ×2 (09:59→20:41)
[2017-06-28] MEDS: METHADONE HCL 10 MG TABLET GT SCH (09:59)
[2017-06-28] MEDS: PROSOURCE / PROSTAT (PYXIS) 30 ML UDC GT SCH ×3 (09:59→17:00)
[2017-06-28] MEDS: HYDROCODONE/APAP 10/325MG 1 EA TABLET GT SCH ×2 (09:59→20:41)
[2017-06-28] MEDS: ASCORBIC ACID 500 MG TABLET GT SCH ×2 (09:59→17:00)
[2017-06-28] MEDS: CLOPIDOGREL BISULFATE 75 MG TABLET GT SCH (09:59)
[2017-06-28] MEDS: HYDROGEN PEROXIDE 480 ML BOTTLE TP SCH ×2 (09:59→20:42)
[2017-06-28] MEDS: GABAPENTIN 300 MG CAPSULE GT SCH ×3 (09:59→17:00)
[2017-06-28] MEDS: CALCITRIOL 0.25 MCG CAPSULE PO SCH (09:59)
[2017-06-28] MEDS: CALCIUM CARBONATE 500 MG TAB.CHEW GT SCH ×3 (09:59→17:00)
[2017-06-28] MEDS: FAMOTIDINE (20 MG) 20 MG TABLET GT SCH ×2 (09:59→20:41)
--- NOTE | 2017-06-28 12:30 | NUR ---
Seen and examined by CHARLES Anderson for Dr. Lemos (neurologist) no new order given.
[2017-06-28] MEDS: POLYETHYLENE GLYCOL 3350 17 GM POWD.PACK GT SCH (20:40)
[2017-06-28] MEDS: CRANBERRY GT SCH (20:40)
[2017-06-28] MEDS: MULTIVIT, IRON, MIN NO. 8, FA 1 TAB GT SCH (20:41)
[2017-06-28] MEDS: ZINC SULFATE 220 MG CAPSULE PO SCH (20:41)
[2017-06-28] MEDS: ENOXAPARIN SODIUM 40 MG/0.4 ML DISP.SYRIN SQ SCH (20:41)
[2017-06-28] MEDS: LIDOCAINE 5% (PATCH) 1 EA PATCH TP SCH (20:42)
[2017-06-28] MEDS: ATORVASTATIN CALCIUM 20MG TABLET GT SCH (21:21)
[2017-06-28 22:32] VITALS: BP 121/76
[2017-06-28] MEDS: METHOCARBAMOL (750MG) 750 MG TABLET GT PRN (23:24)
[2017-06-29] MEDS: HYDROCODONE/APAP 5/325MG 1 EACH TABLET GT PRN ×2 (03:22→23:24)
[2017-06-29] MEDS: CHLORHEXIDINE GLUCONATE 15 ML UDC MM SCH ×2 (06:18→17:33)
[2017-06-29 07:36] VITALS: BP 128/65
[2017-06-29] MEDS: NYSTATIN TOP POWDER 15 GM BOTTLE TP SCH (09:00)
[2017-06-29] MEDS: NYSTATIN/TRIAMCIN 15 GM CREAM 15 GM TUBE TP SCH (09:00)
[2017-06-29] MEDS: HYDROGEN PEROXIDE 480 ML BOTTLE TP SCH ×2 (09:00→21:26)
[2017-06-29] MEDS: Z GUARD REMEDY 4 OZ OINT TP SCH ×6 (09:00→21:41)
[2017-06-29] MEDS: SILVER SULFADIAZINE CREAM 25 GM TUBE TP SCH (09:00)
[2017-06-29] MEDS: BACLOFEN (10 MG) 10 MG TABLET GT SCH ×4 (09:05→21:24)
[2017-06-29] MEDS: ESCITALOPRAM OXALATE (10 MG) 10 MG TABLET GT SCH (09:05)
[2017-06-29] MEDS: METOPROLOL TARTRATE 25 MG TABLET GT SCH ×2 (09:05→17:33)
[2017-06-29] MEDS: ACIDOPHILUS/BULGARICUS 1 EACH TAB.CHEW GT SCH ×3 (09:05→17:37)
[2017-06-29] MEDS: CLOPIDOGREL BISULFATE 75 MG TABLET GT SCH (09:06)
[2017-06-29] MEDS: GABAPENTIN 300 MG CAPSULE GT SCH ×3 (09:06→17:37)
[2017-06-29] MEDS: ASCORBIC ACID 500 MG TABLET GT SCH ×2 (09:06→17:33)
[2017-06-29] MEDS: METHADONE HCL 10 MG TABLET GT SCH (09:06)
[2017-06-29] MEDS: MINERAL OIL/PETROL OINT 396 GM JAR TP SCH ×2 (09:06→21:26)
[2017-06-29] MEDS: PROSOURCE / PROSTAT (PYXIS) 30 ML UDC GT SCH ×3 (09:06→17:37)
[2017-06-29] MEDS: CALCITRIOL 0.25 MCG CAPSULE PO SCH (09:06)
[2017-06-29] MEDS: CALCIUM CARBONATE 500 MG TAB.CHEW GT SCH ×3 (09:06→17:37)
[2017-06-29] MEDS: FAMOTIDINE (20 MG) 20 MG TABLET GT SCH ×2 (09:06→21:24)
[2017-06-29] MEDS: HYDROCODONE/APAP 10/325MG 1 EA TABLET GT SCH ×2 (09:06→21:37)
--- NOTE | 2017-06-29 19:30 | NUR ---
RECEIVED PATIENT IN BED AWAKE, AO X 3, ABLE TO MAKE NEEDS KNOWN. NO ACUTE DISTRESS NOTED. NO SIGNS OF PAIN NOTED. TRACH PATENT, INTACT. GT PATENT, INTACT; IN PLACE VIA AUSCULTATION. HOB RAISED. ASPIRATION PRECAUTION MAINTAINED. GUZMAN CATH PATENT, INTACT; DRAINING CLEAR YELLOW URINE. ON LOW BED WITH BILATERAL SIDE RAILS UP. CALL SO WITHIN EASY REACH. WILL CONTINUE TO MONITOR.
[2017-06-29] MEDS: CRANBERRY GT SCH (21:24)
[2017-06-29] MEDS: ZINC SULFATE 220 MG CAPSULE PO SCH (21:24)
[2017-06-29] MEDS: ENOXAPARIN SODIUM 40 MG/0.4 ML DISP.SYRIN SQ SCH (21:26)
[2017-06-29] MEDS: POLYETHYLENE GLYCOL 3350 17 GM POWD.PACK GT SCH (21:31)
[2017-06-29] MEDS: LIDOCAINE 5% (PATCH) 1 EA PATCH TP SCH (21:38)
[2017-06-29] MEDS: MULTIVIT, IRON, MIN NO. 8, FA 1 TAB GT SCH (21:38)
[2017-06-29] MEDS: ATORVASTATIN CALCIUM 20MG TABLET GT SCH (21:38)
[2017-06-29 23:51] VITALS: BP 119/79
--- NOTE | 2017-06-30 06:51 | NUR ---
PATIENT WITH EYES CLOSED, EASILY AROUSABLE. RESPIRATIONS EVEN. NO SIGNS OF PAIN NOTED. DUE MEDS GIVEN WITH NO ASE NOTED. NEEDS ATTENDED. KEPT CLEAN, DRY, AND COMFORTABLE. SAFETY PRECAUTIONS AND COMFORT MEASURES IN PLACE. WILL GIVE REPORT TO DAY SHIFT FOR CONTINUITY OF CARE.
[2017-06-30] MEDS: CHLORHEXIDINE GLUCONATE 15 ML UDC MM SCH ×2 (06:54→17:41)
[2017-06-30 07:27] VITALS: BP 108/69
[2017-06-30] MEDS: NYSTATIN/TRIAMCIN 15 GM CREAM 15 GM TUBE TP SCH (09:00)
[2017-06-30] MEDS: SILVER SULFADIAZINE CREAM 25 GM TUBE TP SCH (09:00)
[2017-06-30] MEDS: Z GUARD REMEDY 4 OZ OINT TP SCH ×6 (09:00→22:00)
[2017-06-30] MEDS: HYDROGEN PEROXIDE 480 ML BOTTLE TP SCH ×2 (09:00→21:21)
[2017-06-30] MEDS: NYSTATIN TOP POWDER 15 GM BOTTLE TP SCH (09:00)
[2017-06-30] MEDS: ACIDOPHILUS/BULGARICUS 1 EACH TAB.CHEW GT SCH ×3 (09:14→17:48)
[2017-06-30] MEDS: BACLOFEN (10 MG) 10 MG TABLET GT SCH ×4 (09:14→21:21)
[2017-06-30] MEDS: ESCITALOPRAM OXALATE (10 MG) 10 MG TABLET GT SCH (09:14)
[2017-06-30] MEDS: METOPROLOL TARTRATE 25 MG TABLET GT SCH ×2 (09:14→17:41)
[2017-06-30] MEDS: METHADONE HCL 10 MG TABLET GT SCH (09:15)
[2017-06-30] MEDS: GABAPENTIN 300 MG CAPSULE GT SCH ×3 (09:15→17:48)
[2017-06-30] MEDS: CALCIUM CARBONATE 500 MG TAB.CHEW GT SCH ×3 (09:16→17:48)
[2017-06-30] MEDS: HYDROCODONE/APAP 10/325MG 1 EA TABLET GT SCH ×2 (09:16→21:49)
[2017-06-30] MEDS: FAMOTIDINE (20 MG) 20 MG TABLET GT SCH ×2 (09:16→21:21)
[2017-06-30] MEDS: CLOPIDOGREL BISULFATE 75 MG TABLET GT SCH (09:16)
[2017-06-30] MEDS: PROSOURCE / PROSTAT (PYXIS) 30 ML UDC GT SCH ×3 (09:16→17:48)
[2017-06-30] MEDS: MINERAL OIL/PETROL OINT 396 GM JAR TP SCH ×2 (09:16→21:21)
[2017-06-30] MEDS: ASCORBIC ACID 500 MG TABLET GT SCH ×2 (09:16→17:41)
[2017-06-30] MEDS: CALCITRIOL 0.25 MCG CAPSULE PO SCH (09:16)
[2017-06-30] MEDS: HYDROCODONE/APAP 5/325MG 1 EACH TABLET GT PRN (17:41)
[2017-06-30 21:07] VITALS: BP 109/63
[2017-06-30] MEDS: POLYETHYLENE GLYCOL 3350 17 GM POWD.PACK GT SCH (21:21)
[2017-06-30] MEDS: ZINC SULFATE 220 MG CAPSULE PO SCH (21:21)
[2017-06-30] MEDS: MULTIVIT, IRON, MIN NO. 8, FA 1 TAB GT SCH (21:21)
[2017-06-30] MEDS: CRANBERRY GT SCH (21:21)
[2017-06-30] MEDS: LIDOCAINE 5% (PATCH) 1 EA PATCH TP SCH (21:21)
[2017-06-30] MEDS: ENOXAPARIN SODIUM 40 MG/0.4 ML DISP.SYRIN SQ SCH (21:21)
[2017-06-30] MEDS: ATORVASTATIN CALCIUM 20MG TABLET GT SCH (21:26)
[2017-07-01] MEDS: OXYCODONE GT PRN (05:07)
[2017-07-01] MEDS: APAP GT PRN (05:07)
[2017-07-01] MEDS: CHLORHEXIDINE GLUCONATE 15 ML UDC MM SCH ×2 (07:05→16:48)
[2017-07-01] MEDS: MINERAL OIL/PETROL OINT 396 GM JAR TP SCH ×2 (09:00→21:00)
[2017-07-01] MEDS: BACLOFEN (10 MG) 10 MG TABLET GT SCH ×4 (09:49→21:00)
[2017-07-01] MEDS: ACIDOPHILUS/BULGARICUS 1 EACH TAB.CHEW GT SCH ×3 (09:49→16:47)
[2017-07-01] MEDS: ESCITALOPRAM OXALATE (10 MG) 10 MG TABLET GT SCH (09:49)
[2017-07-01] MEDS: FAMOTIDINE (20 MG) 20 MG TABLET GT SCH ×2 (09:50→21:00)
[2017-07-01] MEDS: PROSOURCE / PROSTAT (PYXIS) 30 ML UDC GT SCH ×3 (09:50→16:48)
[2017-07-01] MEDS: ASCORBIC ACID 500 MG TABLET GT SCH ×2 (09:50→16:48)
[2017-07-01] MEDS: METHADONE HCL 10 MG TABLET GT SCH (09:50)
[2017-07-01] MEDS: CALCIUM CARBONATE 500 MG TAB.CHEW GT SCH ×3 (09:50→16:48)
[2017-07-01] MEDS: CLOPIDOGREL BISULFATE 75 MG TABLET GT SCH (09:50)
[2017-07-01] MEDS: GABAPENTIN 300 MG CAPSULE GT SCH ×3 (09:50→16:48)
[2017-07-01] MEDS: METOPROLOL TARTRATE 25 MG TABLET GT SCH ×2 (09:50→16:48)
[2017-07-01] MEDS: CALCITRIOL 0.25 MCG CAPSULE PO SCH (09:50)
[2017-07-01] MEDS: HYDROCODONE/APAP 10/325MG 1 EA TABLET GT SCH ×2 (10:00→21:00)
[2017-07-01] MEDS: NYSTATIN TOP POWDER 15 GM BOTTLE TP SCH (11:00)
[2017-07-01] MEDS: NYSTATIN/TRIAMCIN 15 GM CREAM 15 GM TUBE TP SCH (11:00)
[2017-07-01] MEDS: Z GUARD REMEDY 4 OZ OINT TP SCH ×6 (11:00→21:00)
[2017-07-01] MEDS: SILVER SULFADIAZINE CREAM 25 GM TUBE TP SCH (11:00)
[2017-07-01] MEDS: HYDROGEN PEROXIDE 480 ML BOTTLE TP SCH ×2 (11:00→21:00)
[2017-07-01 19:59] VITALS: BP 107/73
[2017-07-01] MEDS: LIDOCAINE 5% (PATCH) 1 EA PATCH TP SCH (21:00)
[2017-07-01] MEDS: POLYETHYLENE GLYCOL 3350 17 GM POWD.PACK GT SCH (21:00)
[2017-07-01] MEDS: ENOXAPARIN SODIUM 40 MG/0.4 ML DISP.SYRIN SQ SCH (21:00)
[2017-07-01] MEDS: MULTIVIT, IRON, MIN NO. 8, FA 1 TAB GT SCH (21:00)
[2017-07-01] MEDS: CRANBERRY GT SCH (21:00)
[2017-07-01] MEDS: ZINC SULFATE 220 MG CAPSULE PO SCH (21:00)
[2017-07-01] MEDS: ATORVASTATIN CALCIUM 20MG TABLET GT SCH (22:23)
[2017-07-02] MEDS: CHLORHEXIDINE GLUCONATE 15 ML UDC MM SCH ×2 (07:00→16:56)
[2017-07-02 07:55] VITALS: BP 128/76
[2017-07-02] MEDS: ACIDOPHILUS/BULGARICUS 1 EACH TAB.CHEW GT SCH ×3 (08:54→16:55)
[2017-07-02] MEDS: METOPROLOL TARTRATE 25 MG TABLET GT SCH ×2 (08:55→16:56)
[2017-07-02] MEDS: ESCITALOPRAM OXALATE (10 MG) 10 MG TABLET GT SCH (08:55)
[2017-07-02] MEDS: BACLOFEN (10 MG) 10 MG TABLET GT SCH ×4 (08:55→21:24)
[2017-07-02] MEDS: METHADONE HCL 10 MG TABLET GT SCH (08:55)
[2017-07-02] MEDS: GABAPENTIN 300 MG CAPSULE GT SCH ×3 (08:55→16:56)
[2017-07-02] MEDS: ASCORBIC ACID 500 MG TABLET GT SCH ×2 (08:56→16:56)
[2017-07-02] MEDS: PROSOURCE / PROSTAT (PYXIS) 30 ML UDC GT SCH ×3 (08:56→16:56)
[2017-07-02] MEDS: MINERAL OIL/PETROL OINT 396 GM JAR TP SCH ×2 (08:56→21:25)
[2017-07-02] MEDS: CALCIUM CARBONATE 500 MG TAB.CHEW GT SCH ×3 (08:56→16:56)
[2017-07-02] MEDS: HYDROCODONE/APAP 10/325MG 1 EA TABLET GT SCH ×2 (08:56→21:28)
[2017-07-02] MEDS: CALCITRIOL 0.25 MCG CAPSULE PO SCH (08:56)
[2017-07-02] MEDS: CLOPIDOGREL BISULFATE 75 MG TABLET GT SCH (08:56)
[2017-07-02] MEDS: FAMOTIDINE (20 MG) 20 MG TABLET GT SCH ×2 (08:56→21:24)
[2017-07-02] MEDS: HYDROGEN PEROXIDE 480 ML BOTTLE TP SCH ×2 (08:56→21:25)
[2017-07-02] MEDS: NYSTATIN TOP POWDER 15 GM BOTTLE TP SCH (08:57)
[2017-07-02] MEDS: Z GUARD REMEDY 4 OZ OINT TP SCH ×6 (08:57→21:28)
[2017-07-02] MEDS: NYSTATIN/TRIAMCIN 15 GM CREAM 15 GM TUBE TP SCH (08:57)
[2017-07-02] MEDS: SILVER SULFADIAZINE CREAM 25 GM TUBE TP SCH (08:58)
[2017-07-02] MEDS: APAP GT PRN (16:58)
[2017-07-02] MEDS: OXYCODONE GT PRN (16:58)
[2017-07-02 20:23] VITALS: BP 113/76
[2017-07-02] MEDS: CRANBERRY GT SCH (21:24)
[2017-07-02] MEDS: MULTIVIT, IRON, MIN NO. 8, FA 1 TAB GT SCH (21:24)
[2017-07-02] MEDS: POLYETHYLENE GLYCOL 3350 17 GM POWD.PACK GT SCH (21:24)
[2017-07-02] MEDS: ZINC SULFATE 220 MG CAPSULE PO SCH (21:25)
[2017-07-02] MEDS: LIDOCAINE 5% (PATCH) 1 EA PATCH TP SCH (21:25)
[2017-07-02] MEDS: ATORVASTATIN CALCIUM 20MG TABLET GT SCH (21:26)
[2017-07-02] MEDS: ENOXAPARIN SODIUM 40 MG/0.4 ML DISP.SYRIN SQ SCH (21:28)
[2017-07-03] MEDS: ACETAMINOPHEN 650 MG/20 ML UDC- FOR SA PATIENTS ONLY GT PRN (06:59)
[2017-07-03] MEDS: CHLORHEXIDINE GLUCONATE 15 ML UDC MM SCH ×2 (07:00→17:00)
--- NOTE | 2017-07-03 07:02 | NUR ---
MS/RN NOTES NOTED 50 CC DARK RED BLOOD IN PT. GUZMAN CATHETER TUBING AND DRAINAGE BAG. GUZMAN CATHETER IS DRAINING. PT. IS EASILY AROUSABLE TO NAME. PT. VITAL SIGNS BP: 101/59, HR 98, TEMP 101.3F. WILL ADMINISTER TO PT. TYLENOL ORDERED AND IMPLEMENT COOLING MEASURES. WILL ENDORSE TO DAYSHIFT CHARGE NURSE TO FOLLOW UP WITH MD AND CONTINUE TO MONITOR.
[2017-07-03] MEDS: PROSOURCE / PROSTAT (PYXIS) 30 ML UDC GT SCH ×3 (09:00→17:00)
[2017-07-03] MEDS: GABAPENTIN 300 MG CAPSULE GT SCH ×3 (09:00→17:00)
[2017-07-03] MEDS: CLOPIDOGREL BISULFATE 75 MG TABLET GT SCH (09:00)
[2017-07-03] MEDS: CALCITRIOL 0.25 MCG CAPSULE PO SCH (09:00)
[2017-07-03] MEDS: FAMOTIDINE (20 MG) 20 MG TABLET GT SCH ×2 (09:00→21:20)
[2017-07-03] MEDS: ACIDOPHILUS/BULGARICUS 1 EACH TAB.CHEW GT SCH ×3 (09:00→17:00)
[2017-07-03] MEDS: CALCIUM CARBONATE 500 MG TAB.CHEW GT SCH ×3 (09:00→17:00)
[2017-07-03] MEDS: BACLOFEN (10 MG) 10 MG TABLET GT SCH ×4 (09:00→21:20)
[2017-07-03] MEDS: MINERAL OIL/PETROL OINT 396 GM JAR TP SCH ×2 (09:00→21:20)
[2017-07-03] MEDS: METOPROLOL TARTRATE 25 MG TABLET GT SCH ×2 (09:00→17:00)
[2017-07-03] MEDS: ASCORBIC ACID 500 MG TABLET GT SCH ×2 (09:00→17:00)
[2017-07-03] MEDS: ESCITALOPRAM OXALATE (10 MG) 10 MG TABLET GT SCH (09:00)
[2017-07-03] MEDS: METHADONE HCL 10 MG TABLET GT SCH (09:00)
--- NOTE | 2017-07-03 09:30 | NUR ---
Notified Dr. Curiel pt has hematuria and had a fever of 101.3 F. Night charge nurse reported pt was given Tylenol. Pt's temp [address] Curiel ordered to do UA C & S. Notified Vilma.
[2017-07-03] MEDS: HYDROCODONE/APAP 10/325MG 1 EA TABLET GT SCH ×2 (13:07→21:20)
[2017-07-03] MEDS: Z GUARD REMEDY 4 OZ OINT TP SCH ×6 (14:10→21:21)
[2017-07-03] MEDS: NYSTATIN TOP POWDER 15 GM BOTTLE TP SCH (14:10)
[2017-07-03] MEDS: HYDROGEN PEROXIDE 480 ML BOTTLE TP SCH ×2 (14:10→21:20)
[2017-07-03] MEDS: SILVER SULFADIAZINE CREAM 25 GM TUBE TP SCH (14:10)
[2017-07-03] MEDS: NYSTATIN/TRIAMCIN 15 GM CREAM 15 GM TUBE TP SCH (14:10)
[2017-07-03 18:12] LABS: APPEARANCE,URINE TURBID (CLEAR); BILIRUBIN,URINE 3+ (NEGATIVE); BLOOD, URINE 3+ Ery/uL (NEGATIVE); COLOR,URINE RED (YELLOW); KETONES,URINE 1+ (NEGATIVE); LEUKOCYTE ESTERASE ,URINE 3+ (NEGATIVE); NITRITE, URINE POSITIVE (NEGATIVE); PROTEIN,URINE 3+ mg/dl (NEGATIVE); UGLUCOSE TRACE mg/dL (NEGATIVE)
[2017-07-03 18:16] LABS: BACTERIA,URINE Many /HPF (None Seen); RBC,URINE TOO NUMEROUS TO COUN /HPF (0-2); SQUAMOUS EPITHELIAL CELL,UR Few /HPF (None Seen); WBC,URINE TOO NUMEROUS TO COUN /HPF (0-3)
--- NOTE | 2017-07-03 18:31 | NUR ---
Dr. Curiel ordered to hold Lovenox for hematuria, but continue Plavix. Pt has been afebrile throughout the shift, T 98.2 F. Pt alert, no confusion noted.
--- NOTE | 2017-07-03 19:05 | NUR ---
Seen by PARTS COORDINATOR Peggy Hoffman. Notified her that pt had a fever early this morning but has been afebrile throughout the shift. Pt still has hematuria. Relayed UA result to her. She said to hold off on any antibiotics for now. Urine C&S still pending.
[2017-07-03 20:27] VITALS: BP 96/60
[2017-07-03] MEDS: LIDOCAINE 5% (PATCH) 1 EA PATCH TP SCH (21:20)
[2017-07-03] MEDS: POLYETHYLENE GLYCOL 3350 17 GM POWD.PACK GT SCH (21:20)
[2017-07-03] MEDS: ATORVASTATIN CALCIUM 20MG TABLET GT SCH (21:20)
[2017-07-03] MEDS: MULTIVIT, IRON, MIN NO. 8, FA 1 TAB GT SCH (21:20)
[2017-07-03] MEDS: CRANBERRY GT SCH (21:20)
[2017-07-03] MEDS: ZINC SULFATE 220 MG CAPSULE PO SCH (21:20)
--- NOTE | 2017-07-04 04:50 | NUR ---
RN NOTE NOTED PT IS LETHARGIC, O2 SAT IN 80'S. B/P 64/40. HR 157, STAT ABG DONE, RT AT BED SIDE. FIO2 INCREASED TO 98%O2 SAT CAME UP TO 94%. ABG RESULT CAME NORMAL. WAITING FOR DR RODRIGUEZ TO CALL US BACK. PT REMAIN WITH HEMATURIA. NURSING MULTIFOLD OPERATOR RASHID ALSO INFORMED.
[2017-07-04 05:14] LABS: ABG BASE EXCESS -4.6 mmol/L; ABG OXYGEN SATURATION 95.3 % (92.0-98.5); ABG PCO2 29.2 mmHg (35.0-45.0); ABG PH 7.424 (7.350-7.450); ABG PO2 78.8 mmHg (75.0-100.0); AaDO2 561.8 mmHg; COHb 0.1 % (0.5-1.5); MetHb 0.4 % (0.0-1.5); O2Hb 94.8 % (94.0-97.0); SITE, ABG Right Radial; VENT MODE, BG AEROSOL
--- NOTE | 2017-07-04 05:20 | NUR ---
RN NOTE DR RODRIGUEZ CALLED BACK AND GAVE NEW ORDER TO TRANSFER THE PT TO ER.
--- NOTE | 2017-07-04 05:35 | NUR ---
RN NOTE ER NURSE INFORMED ME TO HOLD THE PT ON THE FLOOR UNTIL ER DOCTOR COME SEE HIM TO EVALUATE THE PT. NURSING SUPERVISOR ROD PLACING ALSO MADE AWARE OF THAT. PT IN HIS ROOM. O2 SAT 93% ON 98% FIO2 AT 15 L O2.
--- NOTE | 2017-07-04 05:56 | NUR ---
RN NOTE CALLED ER AGAIN REGARDING PT IS READY FOR TRANSFER, PER ER OK TO BRING TO ER. PT SEND TO ER VIA BED WITH RT AND NURSE.
--- NOTE | 2017-07-04 06:06 | NUR ---
RN NOTE LEFT A MESSAGE FOR MICHAEL SHEPPARD SISTER TO CALL US BACK.
--- NOTE | 2017-07-04 06:12 | NUR ---
RN NOTE MICHAEL SHEPPARD CALLED BACK AND INFORMED HER ABOUT PT CONDITION AND PT WENT TO ER.
[2017-07-04] MEDS ORDERED: ZINC220T PO (08:26)
[2017-07-04] MEDS ORDERED: HYDR-548 GT (08:26)
[2017-07-04] MEDS ORDERED: METH10TA2 GT (08:26)
[2017-07-04] MEDS ORDERED: OXYC-133 PO (08:26)
--- NOTE | 2017-07-04 08:32 | NUR ---
Director Of Strategic Sourcing completed the Resident Transfer or Discharge form as resident was transferred to [facility] due to a change in condition. pony worker informed gaentd-sd-xsx Kishan about 7 day bedhold and completed Bed Hold Notification Form. Forms were placed into the resident's chart.
[2017-07-04] MEDS: METHADONE HCL 10 MG TABLET GT SCH (09:00)
[2017-07-04] MEDS: METOPROLOL TARTRATE 25 MG TABLET GT SCH (17:00)
[2017-07-04] MEDS: CHLORHEXIDINE GLUCONATE 15 ML UDC MM SCH (17:00)
[2017-07-04] MEDS: ASCORBIC ACID 500 MG TABLET GT SCH (17:00)
[2017-07-04] MEDS: CRANBERRY GT SCH (21:30)
[2017-07-06] MEDS: HYDROCODONE/APAP 10/325MG 1 EA TABLET GT SCH (09:00)
[2017-07-06] MEDS: SILVER SULFADIAZINE CREAM 25 GM TUBE TP SCH (09:30)
[2017-07-06] MEDS: NYSTATIN TOP POWDER 15 GM BOTTLE TP SCH (09:30)
[2017-07-06] MEDS: MINERAL OIL/PETROL OINT 396 GM JAR TP SCH (09:30)
[2017-07-06] MEDS: NYSTATIN/TRIAMCIN 15 GM CREAM 15 GM TUBE TP SCH (09:30)
[2017-07-06] MEDS: Z GUARD REMEDY 4 OZ OINT TP SCH ×2 (09:30)
[2017-07-07] MEDS: HYDROCODONE/APAP 10/325MG 1 EA TABLET GT SCH ×2 (09:00→23:30)
[2017-07-07] MEDS: GABAPENTIN 300 MG CAPSULE GT SCH (09:22)
[2017-07-07] MEDS: NYSTATIN TOP POWDER 15 GM BOTTLE TP SCH (09:30)
[2017-07-07] MEDS: MINERAL OIL/PETROL OINT 396 GM JAR TP SCH ×2 (09:30→21:38)
[2017-07-07] MEDS: SILVER SULFADIAZINE CREAM 25 GM TUBE TP SCH (09:30)
[2017-07-07] MEDS: NYSTATIN/TRIAMCIN 15 GM CREAM 15 GM TUBE TP SCH (09:30)
[2017-07-07] MEDS: Z GUARD REMEDY 4 OZ OINT TP SCH ×5 (09:30→23:30)
--- NOTE | 2017-07-07 15:00 | NUR ---
Resident readmitted to [facility] subacute with the following diagnosis Respiratory Failure, sepsis, HTN, MS, hyperlipidemia, Depression, chronic pain and muscle spasm under the services of Dr. Walker. Verified admission orders from Dr. Walker, to continue all previous orders from subacute and add Rocephin IV x 10 days for sepsis. Body check done, patient with multiple skin problems. See photo. Patient alert and responsive. He recognizes staff member by name, however it is hard for him to stay awake. Denies any pain. On O2 via T-piece and saturating 98%. Dr. Ugarte seen resident, NNO given. Notified resident's sister in law Vilma of readmission.
[2017-07-07 16:49] VITALS: BP 122/72
--- NOTE | 2017-07-07 19:10 | NUR ---
Diana BOYCE ID came to review patient's ATB orders, she gave an order to discontinue Rocephin and start him on Vancomycin and Merrem. Orders faxed to pharmacy. Responsible alliance party Vilma notified.
[2017-07-07 20:19] VITALS: BP 139/82
[2017-07-07] MEDS ORDERED: FEE PK DOSING 1 MIN EA MC ONE (20:41)
[2017-07-07] MEDS: MEROPENEM 500 MG in IV NS 0.9% 50 ML IV SCH (21:00)
[2017-07-07] MEDS: VANCOMYCIN 1 GM in IV NS 0.9% 250 ML IV SCH (21:00)
--- NOTE | 2017-07-07 21:00 | NUR ---
Pt started on IV antibiotic of Vancomycin and Merrem ordered by SHRUTI BOYCE.Blood culture x2,BMP,CBC on Monday07/10/17.All orders carried out.Will continue to monitor.
[2017-07-07] MEDS ORDERED: CEFT1VIA15 IV (21:02)
[2017-07-07] MEDS: FAMOTIDINE (20 MG) 20 MG TABLET GT SCH (21:22)
[2017-07-07] MEDS: CRANBERRY GT SCH (21:30)
[2017-07-07] MEDS: BACLOFEN (10 MG) 10 MG TABLET GT SCH (21:37)
[2017-07-07] MEDS: POLYETHYLENE GLYCOL 3350 17 GM POWD.PACK GT SCH (21:43)
[2017-07-07] MEDS: MULTIVIT, IRON, MIN NO. 8, FA 1 TAB GT SCH (21:43)
[2017-07-07] MEDS: ZINC SULFATE 220 MG CAPSULE PO SCH (21:44)
[2017-07-07] MEDS: ATORVASTATIN CALCIUM 20MG TABLET GT SCH (21:44)
[2017-07-07] MEDS ORDERED: MEROPENEM 1 G in IV NS 0.9% 100 ML IV SCH (22:00)
[2017-07-07] MEDS: NYSTATIN/TRIAMCIN CREAM 15 GM TUBE TP SCH ×4 (23:30)
[2017-07-07] MEDS: ZINC OXIDE 30 GM TUBE TP SCH (23:30)
[2017-07-07] MEDS: HYDROGEL DRESSING 90 GM TUBE TP SCH (23:30)
--- NOTE | 2017-07-08 06:17 | NUR ---
Pt remains stable during the no distress noted.No allergic reaction to the antibiotics.All needs attended.Will continue to monitor.
[2017-07-08 07:46] VITALS: BP 107/69
[2017-07-08] MEDS: PROSOURCE / PROSTAT (PYXIS) 30 ML UDC GT SCH ×4 (09:00→17:00)
[2017-07-08] MEDS: METOPROLOL TARTRATE 25 MG TABLET GT SCH ×3 (09:00→17:00)
[2017-07-08] MEDS: GABAPENTIN 300 MG CAPSULE GT SCH ×3 (09:00→17:00)
[2017-07-08] MEDS: CALCIUM CARBONATE 500 MG TAB.CHEW GT SCH ×4 (09:00→17:00)
[2017-07-08] MEDS: CLOPIDOGREL BISULFATE 75 MG TABLET GT SCH ×2 (09:00→09:22)
[2017-07-08] MEDS: ACIDOPHILUS/BULGARICUS 1 EACH TAB.CHEW GT SCH ×4 (09:00→17:00)
[2017-07-08] MEDS: METHADONE HCL 10 MG TABLET GT SCH ×2 (09:00→09:22)
[2017-07-08] MEDS: ESCITALOPRAM OXALATE (10 MG) 10 MG TABLET GT SCH ×2 (09:00→09:22)
[2017-07-08] MEDS: CALCITRIOL 0.25 MCG CAPSULE PO SCH ×2 (09:00→09:22)
[2017-07-08] MEDS: BACLOFEN (10 MG) 10 MG TABLET GT SCH ×4 (09:24→21:39)
[2017-07-08] MEDS: FAMOTIDINE (20 MG) 20 MG TABLET GT SCH ×2 (09:24→21:39)
[2017-07-08 09:27] LABS: CALCIUM, SERUM 7.9 mg/dL (8.5-10.1); CREATININE 0.8 mg/dL (0.6-1.3); POTASSIUM 3.7 mmol/L (3.5-5.1)
[2017-07-08] MEDS: VANCOMYCIN 1 GM in IV NS 0.9% 250 ML IV SCH ×2 (10:00→21:00)
[2017-07-08] MEDS: MEROPENEM 500 MG in IV NS 0.9% 50 ML IV SCH (10:00)
--- NOTE | 2017-07-08 10:30 | NUR ---
Merrem 1 gm IV given as ordered.
[2017-07-08] MEDS: HYDROCODONE/APAP 10/325MG 1 EA TABLET GT SCH ×2 (10:45→22:45)
[2017-07-08] MEDS: ZINC OXIDE 30 GM TUBE TP SCH ×2 (11:45→23:30)
[2017-07-08] MEDS: Z GUARD REMEDY 4 OZ OINT TP SCH ×5 (11:45→23:30)
[2017-07-08] MEDS: SILVER SULFADIAZINE CREAM 25 GM TUBE TP SCH (11:45)
[2017-07-08] MEDS: MINERAL OIL/PETROL OINT 396 GM JAR TP SCH ×2 (11:45→21:39)
[2017-07-08] MEDS: NYSTATIN/TRIAMCIN 15 GM CREAM 15 GM TUBE TP SCH (11:45)
[2017-07-08] MEDS: NYSTATIN/TRIAMCIN CREAM 15 GM TUBE TP SCH ×8 (11:45→23:30)
[2017-07-08] MEDS: NYSTATIN TOP POWDER 15 GM BOTTLE TP SCH (11:45)
[2017-07-08] MEDS: HYDROGEL DRESSING 90 GM TUBE TP SCH ×2 (11:45→23:30)
--- NOTE | 2017-07-08 16:00 | NUR ---
Resident visited by her sister in [facility] this afternoon and patient's brother and his this morning. Patient alert and responding with his guest using PMV.
[2017-07-08 19:28] VITALS: BP 127/78
[2017-07-08] MEDS: MEROPENEM 1 G in IV NS 0.9% 100 ML IV SCH (21:00)
[2017-07-08] MEDS: ATORVASTATIN CALCIUM 20MG TABLET GT SCH (21:39)
[2017-07-08] MEDS: ZINC SULFATE 220 MG CAPSULE PO SCH (21:39)
[2017-07-08] MEDS: POLYETHYLENE GLYCOL 3350 17 GM POWD.PACK GT SCH (21:39)
[2017-07-08] MEDS: MULTIVIT, IRON, MIN NO. 8, FA 1 TAB GT SCH (21:39)
[2017-07-08] MEDS: CRANBERRY GT SCH (21:39)
[2017-07-09 08:06] VITALS: BP 128/62
[2017-07-09 08:32] LABS: CALCIUM, SERUM 8.2 mg/dL (8.5-10.1); CREATININE 0.7 mg/dL (0.6-1.3)
[2017-07-09] MEDS: VANCOMYCIN 1 GM in IV NS 0.9% 250 ML IV SCH ×2 (09:00→21:00)
[2017-07-09] MEDS: ACIDOPHILUS/BULGARICUS 1 EACH TAB.CHEW GT SCH ×3 (09:30→17:09)
[2017-07-09] MEDS: ESCITALOPRAM OXALATE (10 MG) 10 MG TABLET GT SCH (09:30)
[2017-07-09] MEDS: BACLOFEN (10 MG) 10 MG TABLET GT SCH ×4 (09:30→21:17)
[2017-07-09] MEDS: GABAPENTIN 300 MG CAPSULE GT SCH ×3 (09:31→17:09)
[2017-07-09] MEDS: CALCITRIOL 0.25 MCG CAPSULE PO SCH (09:31)
[2017-07-09] MEDS: FAMOTIDINE (20 MG) 20 MG TABLET GT SCH ×2 (09:31→21:17)
[2017-07-09] MEDS: CLOPIDOGREL BISULFATE 75 MG TABLET GT SCH (09:31)
[2017-07-09] MEDS: CALCIUM CARBONATE 500 MG TAB.CHEW GT SCH ×3 (09:31→17:09)
[2017-07-09] MEDS: PROSOURCE / PROSTAT (PYXIS) 30 ML UDC GT SCH ×3 (09:31→17:09)
[2017-07-09] MEDS: METOPROLOL TARTRATE 25 MG TABLET GT SCH ×2 (09:31→17:09)
[2017-07-09] MEDS: METHADONE HCL 10 MG TABLET GT SCH (09:34)
[2017-07-09] MEDS: MEROPENEM 1 G in IV NS 0.9% 100 ML IV SCH ×2 (10:00→21:00)
[2017-07-09] MEDS: HYDROCODONE/APAP 10/325MG 1 EA TABLET GT SCH ×2 (12:20→21:17)
[2017-07-09] MEDS: ZINC OXIDE 30 GM TUBE TP SCH ×6 (13:20→21:19)
[2017-07-09] MEDS: SILVER SULFADIAZINE CREAM 25 GM TUBE TP SCH (13:20)
[2017-07-09] MEDS: NYSTATIN/TRIAMCIN CREAM 15 GM TUBE TP SCH ×8 (13:20→21:18)
[2017-07-09] MEDS: HYDROGEL DRESSING 90 GM TUBE TP SCH ×2 (13:20→21:18)
[2017-07-09] MEDS: NYSTATIN TOP POWDER 15 GM BOTTLE TP SCH (13:20)
[2017-07-09] MEDS: MINERAL OIL/PETROL OINT 396 GM JAR TP SCH ×2 (13:20→21:18)
[2017-07-09] MEDS: NYSTATIN/TRIAMCIN 15 GM CREAM 15 GM TUBE TP SCH (13:20)
[2017-07-09] MEDS: Z GUARD REMEDY 4 OZ OINT TP SCH ×4 (13:20→21:18)
[2017-07-09 20:08] VITALS: BP 111/60
[2017-07-09] MEDS: MULTIVIT, IRON, MIN NO. 8, FA 1 TAB GT SCH (21:17)
[2017-07-09] MEDS: CRANBERRY GT SCH (21:17)
[2017-07-09] MEDS: ZINC SULFATE 220 MG CAPSULE PO SCH (21:17)
[2017-07-09] MEDS: POLYETHYLENE GLYCOL 3350 17 GM POWD.PACK GT SCH (21:17)
[2017-07-09] MEDS: ATORVASTATIN CALCIUM 20MG TABLET GT SCH (21:19)
[2017-07-10 08:08] VITALS: BP 110/69
[2017-07-10 08:54] LABS: CALCIUM, SERUM 8.2 mg/dL (8.5-10.1); CREATININE 0.7 mg/dL (0.6-1.3); POTASSIUM 3.2 mmol/L (3.5-5.1)
[2017-07-10] MEDS: VANCOMYCIN 1 GM in IV NS 0.9% 250 ML IV SCH ×2 (09:00→21:00)
[2017-07-10] MEDS: METHADONE HCL 10 MG TABLET GT SCH (09:12)
[2017-07-10] MEDS: ACIDOPHILUS/BULGARICUS 1 EACH TAB.CHEW GT SCH ×3 (09:12→17:32)
[2017-07-10] MEDS: ESCITALOPRAM OXALATE (10 MG) 10 MG TABLET GT SCH (09:12)
[2017-07-10] MEDS: BACLOFEN (10 MG) 10 MG TABLET GT SCH ×4 (09:12→21:17)
[2017-07-10] MEDS: GABAPENTIN 300 MG CAPSULE GT SCH ×3 (09:13→17:32)
[2017-07-10] MEDS: FAMOTIDINE (20 MG) 20 MG TABLET GT SCH ×2 (09:13→21:18)
[2017-07-10] MEDS: CLOPIDOGREL BISULFATE 75 MG TABLET GT SCH (09:13)
[2017-07-10] MEDS: PROSOURCE / PROSTAT (PYXIS) 30 ML UDC GT SCH ×3 (09:13→17:32)
[2017-07-10] MEDS: CALCIUM CARBONATE 500 MG TAB.CHEW GT SCH ×3 (09:13→17:32)
[2017-07-10] MEDS: CALCITRIOL 0.25 MCG CAPSULE PO SCH (09:13)
[2017-07-10] MEDS: METOPROLOL TARTRATE 25 MG TABLET GT SCH ×2 (09:13→17:32)
[2017-07-10] MEDS: MEROPENEM 1 G in IV NS 0.9% 100 ML IV SCH ×2 (10:00→21:00)
--- NOTE | 2017-07-10 10:28 | NUR ---
Informed ypkden-ky-eql Vilma about upcoming IDT meeting on July 21, 2017 from 12:30-1:30pm. She noted that she would like to attend and has put it on her calendar. Per Vilma, she should be arriving after 1pm.
--- NOTE | 2017-07-10 11:11 | NUR ---
WOUND CARE CONSULT WOUND CARE RECEIVED CONSULT FOR MULTIPLE WOUNDS. WOUND CARE WILL DEFER CONSULT AND ALL TREATMENT PLANS TO SURGICAL TEAM WHO HAVE BEEN FOLLOWING PATIENT IN SUB ACUTE WELL ACUTE CARE. DISCUSSED WITH COURT STENOGRAPHER FOR TODAY. PER COURT STENOGRAPHER THERE ARE CURRENT TREATMENT ORDERS IN PLACE FOR PATIENT'S SKIN ISSUES AT THIS TIME.
[2017-07-10] MEDS: HYDROCODONE/APAP 10/325MG 1 EA TABLET GT SCH ×2 (12:15→21:18)
[2017-07-10] MEDS: SILVER SULFADIAZINE CREAM 25 GM TUBE TP SCH (13:15)
[2017-07-10] MEDS: ZINC OXIDE 30 GM TUBE TP SCH ×6 (13:15→21:20)
[2017-07-10] MEDS: MINERAL OIL/PETROL OINT 396 GM JAR TP SCH ×2 (13:15→21:19)
[2017-07-10] MEDS: NYSTATIN TOP POWDER 15 GM BOTTLE TP SCH (13:15)
[2017-07-10] MEDS: Z GUARD REMEDY 4 OZ OINT TP SCH ×4 (13:15→21:19)
[2017-07-10] MEDS: NYSTATIN/TRIAMCIN CREAM 15 GM TUBE TP SCH ×8 (13:15→21:19)
[2017-07-10] MEDS: NYSTATIN/TRIAMCIN 15 GM CREAM 15 GM TUBE TP SCH (13:15)
[2017-07-10] MEDS: HYDROGEL DRESSING 90 GM TUBE TP SCH ×2 (13:15→21:19)
--- NOTE | 2017-07-10 13:30 | NUR ---
Vanco trough,BUN,CR result received and relayed to the pharmacy,spoke with and ordered to hold iv vanco @0900 today and start iv vanco @9pm today.New orders noted and carried out.
[2017-07-10 20:22] VITALS: BP 149/84
[2017-07-10] MEDS: CRANBERRY GT SCH (21:17)
[2017-07-10] MEDS: ZINC SULFATE 220 MG CAPSULE PO SCH (21:18)
[2017-07-10] MEDS: MULTIVIT, IRON, MIN NO. 8, FA 1 TAB GT SCH (21:18)
[2017-07-10] MEDS: POLYETHYLENE GLYCOL 3350 17 GM POWD.PACK GT SCH (21:18)
[2017-07-10] MEDS: ATORVASTATIN CALCIUM 20MG TABLET GT SCH (21:20)
[2017-07-11 08:18] VITALS: BP 135/78
[2017-07-11 08:37] LABS: CALCIUM, SERUM 8.3 mg/dL (8.5-10.1); CREATININE 0.6 mg/dL (0.6-1.3); POTASSIUM 3.7 mmol/L (3.5-5.1)
[2017-07-11] MEDS: MEROPENEM 1 G in IV NS 0.9% 100 ML IV SCH ×2 (09:00→20:49)
[2017-07-11] MEDS: HYDROCODONE/APAP 10/325MG 1 EA TABLET GT SCH ×2 (09:00→21:17)
[2017-07-11] MEDS: ACIDOPHILUS/BULGARICUS 1 EACH TAB.CHEW GT SCH ×3 (09:23→16:54)
[2017-07-11] MEDS: ESCITALOPRAM OXALATE (10 MG) 10 MG TABLET GT SCH (09:23)
[2017-07-11] MEDS: METOPROLOL TARTRATE 25 MG TABLET GT SCH ×2 (09:24→16:54)
[2017-07-11] MEDS: BACLOFEN (10 MG) 10 MG TABLET GT SCH ×4 (09:24→21:17)
[2017-07-11] MEDS: CLOPIDOGREL BISULFATE 75 MG TABLET GT SCH (09:25)
[2017-07-11] MEDS: METHADONE HCL 10 MG TABLET GT SCH (09:25)
[2017-07-11] MEDS: FAMOTIDINE (20 MG) 20 MG TABLET GT SCH ×2 (09:25→21:17)
[2017-07-11] MEDS: GABAPENTIN 300 MG CAPSULE GT SCH ×3 (09:25→16:54)
[2017-07-11] MEDS: PROSOURCE / PROSTAT (PYXIS) 30 ML UDC GT SCH ×3 (09:26→16:55)
[2017-07-11] MEDS: CALCIUM CARBONATE 500 MG TAB.CHEW GT SCH ×3 (09:26→16:55)
[2017-07-11] MEDS: CALCITRIOL 0.25 MCG CAPSULE PO SCH (09:26)
[2017-07-11] MEDS: NYSTATIN TOP POWDER 15 GM BOTTLE TP SCH (09:30)
[2017-07-11] MEDS: VANCOMYCIN 1 GM in IV NS 0.9% 250 ML IV SCH (09:30)
[2017-07-11] MEDS: HYDROGEL DRESSING 90 GM TUBE TP SCH ×2 (09:30→21:17)
[2017-07-11] MEDS: NYSTATIN/TRIAMCIN CREAM 15 GM TUBE TP SCH ×8 (09:30→21:18)
[2017-07-11] MEDS: ZINC OXIDE 30 GM TUBE TP SCH ×6 (09:30→21:19)
[2017-07-11] MEDS: MINERAL OIL/PETROL OINT 396 GM JAR TP SCH ×2 (09:30→21:17)
[2017-07-11] MEDS: SILVER SULFADIAZINE CREAM 25 GM TUBE TP SCH (09:30)
[2017-07-11] MEDS: Z GUARD REMEDY 4 OZ OINT TP SCH ×4 (09:30→21:18)
[2017-07-11] MEDS: NYSTATIN/TRIAMCIN 15 GM CREAM 15 GM TUBE TP SCH (09:30)
--- NOTE | 2017-07-11 12:26 | NUR ---
Relayed respiratory culture result to Diana DRIVE IN WAITER/WAITRESS. Pseudomonas Aeruginosa slight growth with multiple sensitivities. NNO given, per Diana DRIVE IN WAITER/WAITRESS continue same treatment.
[2017-07-11] MEDS: ENOXAPARIN SODIUM 40 MG/0.4 ML DISP.SYRIN SQ SCH ×2 (16:59→17:31)
[2017-07-11 19:59] VITALS: BP 110/67
[2017-07-11] MEDS: ZINC SULFATE 220 MG CAPSULE PO SCH (21:17)
[2017-07-11] MEDS: MULTIVIT, IRON, MIN NO. 8, FA 1 TAB GT SCH (21:17)
[2017-07-11] MEDS: POLYETHYLENE GLYCOL 3350 17 GM POWD.PACK GT SCH (21:17)
[2017-07-11] MEDS: CRANBERRY GT SCH (21:17)
[2017-07-11] MEDS: ATORVASTATIN CALCIUM 20MG TABLET GT SCH (21:19)
[2017-07-12 07:12] LABS: CALCIUM, SERUM 8.3 mg/dL (8.5-10.1); CREATININE 0.6 mg/dL (0.6-1.3); POTASSIUM 4.1 mmol/L (3.5-5.1)
[2017-07-12 07:59] VITALS: BP 122/79
[2017-07-12] MEDS: ACIDOPHILUS/BULGARICUS 1 EACH TAB.CHEW GT SCH ×3 (08:31→17:40)
[2017-07-12] MEDS: METOPROLOL TARTRATE 25 MG TABLET GT SCH ×2 (08:32→17:40)
[2017-07-12] MEDS: BACLOFEN (10 MG) 10 MG TABLET GT SCH ×4 (08:32→21:17)
[2017-07-12] MEDS: ESCITALOPRAM OXALATE (10 MG) 10 MG TABLET GT SCH (08:32)
[2017-07-12] MEDS: FAMOTIDINE (20 MG) 20 MG TABLET GT SCH ×2 (08:34→21:17)
[2017-07-12] MEDS: GABAPENTIN 300 MG CAPSULE GT SCH ×3 (08:34→17:40)
[2017-07-12] MEDS: CLOPIDOGREL BISULFATE 75 MG TABLET GT SCH (08:34)
[2017-07-12] MEDS: PROSOURCE / PROSTAT (PYXIS) 30 ML UDC GT SCH ×3 (08:34→17:40)
[2017-07-12] MEDS: METHADONE HCL 10 MG TABLET GT SCH (08:34)
[2017-07-12] MEDS: CALCITRIOL 0.25 MCG CAPSULE PO SCH (08:35)
[2017-07-12] MEDS: CALCIUM CARBONATE 500 MG TAB.CHEW GT SCH ×3 (08:35→17:40)
[2017-07-12] MEDS: ASCORBIC ACID 500 MG TABLET GT SCH ×2 (08:35→17:41)
[2017-07-12] MEDS: MEROPENEM 1 G in IV NS 0.9% 100 ML IV SCH ×2 (09:00→21:18)
[2017-07-12] MEDS: MINERAL OIL/PETROL OINT 396 GM JAR TP SCH ×2 (09:00→21:18)
--- NOTE | 2017-07-12 12:21 | NUR ---
Seen and examined by Dr. Walker, no new order given.
[2017-07-12] MEDS: HYDROCODONE/APAP 10/325MG 1 EA TABLET GT SCH ×2 (14:15→22:00)
[2017-07-12] MEDS: ZINC OXIDE 30 GM TUBE TP SCH ×6 (15:15→22:30)
[2017-07-12] MEDS: Z GUARD REMEDY 4 OZ OINT TP SCH ×4 (15:15→22:30)
[2017-07-12] MEDS: NYSTATIN/TRIAMCIN CREAM 15 GM TUBE TP SCH ×8 (15:15→22:30)
[2017-07-12] MEDS: NYSTATIN TOP POWDER 15 GM BOTTLE TP SCH (15:15)
[2017-07-12] MEDS: NYSTATIN/TRIAMCIN 15 GM CREAM 15 GM TUBE TP SCH (15:15)
[2017-07-12] MEDS: SILVER SULFADIAZINE CREAM 25 GM TUBE TP SCH (15:15)
[2017-07-12] MEDS: HYDROGEL DRESSING 90 GM TUBE TP SCH ×2 (15:15→22:30)
[2017-07-12] MEDS: ZINC SULFATE 220 MG CAPSULE PO SCH (21:17)
[2017-07-12] MEDS: ENOXAPARIN SODIUM 40 MG/0.4 ML DISP.SYRIN SQ SCH (21:17)
[2017-07-12] MEDS: CRANBERRY GT SCH (21:17)
[2017-07-12] MEDS: POLYETHYLENE GLYCOL 3350 17 GM POWD.PACK GT SCH (21:17)
[2017-07-12] MEDS: MULTIVIT, IRON, MIN NO. 8, FA 1 TAB GT SCH (21:17)
[2017-07-12] MEDS: ATORVASTATIN CALCIUM 20MG TABLET GT SCH (21:20)
[2017-07-12 23:10] VITALS: BP 122/74
[2017-07-13 08:00] VITALS: BP 135/66
[2017-07-13] MEDS: MEROPENEM 1 G in IV NS 0.9% 100 ML IV SCH ×2 (09:00→21:17)
[2017-07-13] MEDS: ESCITALOPRAM OXALATE (10 MG) 10 MG TABLET GT SCH (09:44)
[2017-07-13] MEDS: ACIDOPHILUS/BULGARICUS 1 EACH TAB.CHEW GT SCH ×3 (09:44→17:00)
[2017-07-13] MEDS: BACLOFEN (10 MG) 10 MG TABLET GT SCH ×4 (09:45→20:52)
[2017-07-13] MEDS: METHADONE HCL 10 MG TABLET GT SCH (09:45)
[2017-07-13] MEDS: GABAPENTIN 300 MG CAPSULE GT SCH ×3 (09:45→17:00)
[2017-07-13] MEDS: METOPROLOL TARTRATE 25 MG TABLET GT SCH ×2 (09:45→17:00)
[2017-07-13] MEDS: FAMOTIDINE (20 MG) 20 MG TABLET GT SCH ×2 (09:46→20:53)
[2017-07-13] MEDS: ASCORBIC ACID 500 MG TABLET GT SCH ×2 (09:46→17:00)
[2017-07-13] MEDS: CALCITRIOL 0.25 MCG CAPSULE PO SCH (09:46)
[2017-07-13] MEDS: CLOPIDOGREL BISULFATE 75 MG TABLET GT SCH (09:46)
[2017-07-13] MEDS: HYDROCODONE/APAP 10/325MG 1 EA TABLET GT SCH ×2 (09:46→20:53)
[2017-07-13] MEDS: PROSOURCE / PROSTAT (PYXIS) 30 ML UDC GT SCH ×3 (09:46→17:00)
[2017-07-13] MEDS: CALCIUM CARBONATE 500 MG TAB.CHEW GT SCH ×3 (09:46→17:00)
[2017-07-13] MEDS: NYSTATIN TOP POWDER 15 GM BOTTLE TP SCH (10:20)
[2017-07-13] MEDS: Z GUARD REMEDY 4 OZ OINT TP SCH ×4 (10:20→20:54)
[2017-07-13] MEDS: NYSTATIN/TRIAMCIN CREAM 15 GM TUBE TP SCH ×8 (10:20→20:54)
[2017-07-13] MEDS: MINERAL OIL/PETROL OINT 396 GM JAR TP SCH ×2 (10:20→20:53)
[2017-07-13] MEDS: ZINC OXIDE 30 GM TUBE TP SCH ×6 (10:20→20:54)
[2017-07-13] MEDS: NYSTATIN/TRIAMCIN 15 GM CREAM 15 GM TUBE TP SCH (10:20)
[2017-07-13] MEDS: SILVER SULFADIAZINE CREAM 25 GM TUBE TP SCH (10:20)
[2017-07-13] MEDS: HYDROGEL DRESSING 90 GM TUBE TP SCH ×2 (10:20→20:53)
[2017-07-13] MEDS: CRANBERRY GT SCH (20:52)
[2017-07-13] MEDS: POLYETHYLENE GLYCOL 3350 17 GM POWD.PACK GT SCH (20:52)
[2017-07-13] MEDS: ZINC SULFATE 220 MG CAPSULE PO SCH (20:53)
[2017-07-13] MEDS: ENOXAPARIN SODIUM 40 MG/0.4 ML DISP.SYRIN SQ SCH (20:53)
[2017-07-13] MEDS: MULTIVIT, IRON, MIN NO. 8, FA 1 TAB GT SCH (20:53)
[2017-07-13] MEDS: ATORVASTATIN CALCIUM 20MG TABLET GT SCH (21:15)
[2017-07-14 00:54] VITALS: BP 121/73
[2017-07-14 07:29] VITALS: BP 114/64
[2017-07-14] MEDS: MEROPENEM 1 G in IV NS 0.9% 100 ML IV SCH (09:00)
[2017-07-14] MEDS: ESCITALOPRAM OXALATE (10 MG) 10 MG TABLET GT SCH (09:43)
[2017-07-14] MEDS: ACIDOPHILUS/BULGARICUS 1 EACH TAB.CHEW GT SCH ×3 (09:43→17:00)
[2017-07-14] MEDS: METOPROLOL TARTRATE 25 MG TABLET GT SCH ×2 (09:43→17:00)
[2017-07-14] MEDS: BACLOFEN (10 MG) 10 MG TABLET GT SCH ×4 (09:43→20:30)
[2017-07-14] MEDS: METHADONE HCL 10 MG TABLET GT SCH (09:44)
[2017-07-14] MEDS: CLOPIDOGREL BISULFATE 75 MG TABLET GT SCH (09:44)
[2017-07-14] MEDS: HYDROCODONE/APAP 10/325MG 1 EA TABLET GT SCH ×2 (09:44→20:30)
[2017-07-14] MEDS: PROSOURCE / PROSTAT (PYXIS) 30 ML UDC GT SCH ×3 (09:44→17:00)
[2017-07-14] MEDS: ASCORBIC ACID 500 MG TABLET GT SCH ×2 (09:44→17:00)
[2017-07-14] MEDS: CALCITRIOL 0.25 MCG CAPSULE PO SCH (09:44)
[2017-07-14] MEDS: CALCIUM CARBONATE 500 MG TAB.CHEW GT SCH ×3 (09:44→17:00)
[2017-07-14] MEDS: FAMOTIDINE (20 MG) 20 MG TABLET GT SCH ×2 (09:44→20:30)
[2017-07-14] MEDS: GABAPENTIN 300 MG CAPSULE GT SCH ×3 (09:44→17:00)
[2017-07-14] MEDS: HYDROGEL DRESSING 90 GM TUBE TP SCH ×2 (10:15→20:31)
[2017-07-14] MEDS: ZINC OXIDE 30 GM TUBE TP SCH ×6 (10:15→20:31)
[2017-07-14] MEDS: SILVER SULFADIAZINE CREAM 25 GM TUBE TP SCH (10:15)
[2017-07-14] MEDS: NYSTATIN/TRIAMCIN CREAM 15 GM TUBE TP SCH ×8 (10:15→20:31)
[2017-07-14] MEDS: Z GUARD REMEDY 4 OZ OINT TP SCH ×4 (10:15→20:31)
[2017-07-14] MEDS: NYSTATIN TOP POWDER 15 GM BOTTLE TP SCH (10:15)
[2017-07-14] MEDS: NYSTATIN/TRIAMCIN 15 GM CREAM 15 GM TUBE TP SCH (10:15)
[2017-07-14] MEDS: MINERAL OIL/PETROL OINT 396 GM JAR TP SCH ×2 (10:15→20:30)
[2017-07-14] MEDS: MULTIVIT, IRON, MIN NO. 8, FA 1 TAB GT SCH (20:30)
[2017-07-14] MEDS: ZINC SULFATE 220 MG CAPSULE PO SCH (20:30)
[2017-07-14] MEDS: ENOXAPARIN SODIUM 40 MG/0.4 ML DISP.SYRIN SQ SCH (20:30)
[2017-07-14] MEDS: CRANBERRY GT SCH (20:30)
[2017-07-14] MEDS: POLYETHYLENE GLYCOL 3350 17 GM POWD.PACK GT SCH (20:30)
[2017-07-14] MEDS: ATORVASTATIN CALCIUM 20MG TABLET GT SCH (21:06)
[2017-07-14] MEDS: CEFEPIME 2 GM in IV D5W 100 ML IV SCH (21:31)
[2017-07-14 23:57] VITALS: BP 97/57
[2017-07-15] MEDS: CEFEPIME 2 GM in IV D5W 100 ML IV SCH ×3 (05:04→21:00)
[2017-07-15] MEDS: BACLOFEN (10 MG) 10 MG TABLET GT SCH ×4 (09:15→20:11)
[2017-07-15] MEDS: ESCITALOPRAM OXALATE (10 MG) 10 MG TABLET GT SCH (09:15)
[2017-07-15] MEDS: METOPROLOL TARTRATE 25 MG TABLET GT SCH ×2 (09:15→17:55)
[2017-07-15] MEDS: ACIDOPHILUS/BULGARICUS 1 EACH TAB.CHEW GT SCH ×3 (09:15→17:54)
[2017-07-15] MEDS: GABAPENTIN 300 MG CAPSULE GT SCH ×3 (09:16→17:55)
[2017-07-15] MEDS: HYDROCODONE/APAP 10/325MG 1 EA TABLET GT SCH ×2 (09:16→20:12)
[2017-07-15] MEDS: METHADONE HCL 10 MG TABLET GT SCH (09:17)
[2017-07-15] MEDS: FAMOTIDINE (20 MG) 20 MG TABLET GT SCH ×2 (09:18→20:12)
[2017-07-15] MEDS: PROSOURCE / PROSTAT (PYXIS) 30 ML UDC GT SCH ×3 (09:18→17:55)
[2017-07-15] MEDS: CALCITRIOL 0.25 MCG CAPSULE PO SCH (09:18)
[2017-07-15] MEDS: ASCORBIC ACID 500 MG TABLET GT SCH ×2 (09:18→17:55)
[2017-07-15] MEDS: CLOPIDOGREL BISULFATE 75 MG TABLET GT SCH (09:18)
[2017-07-15] MEDS: CALCIUM CARBONATE 500 MG TAB.CHEW GT SCH ×3 (09:18→17:55)
[2017-07-15] MEDS: NYSTATIN/TRIAMCIN 15 GM CREAM 15 GM TUBE TP SCH (09:50)
[2017-07-15] MEDS: Z GUARD REMEDY 4 OZ OINT TP SCH ×4 (09:50→20:12)
[2017-07-15] MEDS: NYSTATIN/TRIAMCIN CREAM 15 GM TUBE TP SCH ×8 (09:50→20:12)
[2017-07-15] MEDS: SILVER SULFADIAZINE CREAM 25 GM TUBE TP SCH (09:50)
[2017-07-15] MEDS: ZINC OXIDE 30 GM TUBE TP SCH ×6 (09:50→20:13)
[2017-07-15] MEDS: HYDROGEL DRESSING 90 GM TUBE TP SCH ×2 (09:50→20:12)
[2017-07-15] MEDS: NYSTATIN TOP POWDER 15 GM BOTTLE TP SCH (09:50)
[2017-07-15] MEDS: MINERAL OIL/PETROL OINT 396 GM JAR TP SCH ×2 (09:50→20:12)
[2017-07-15] MEDS: CRANBERRY GT SCH (20:11)
[2017-07-15] MEDS: POLYETHYLENE GLYCOL 3350 17 GM POWD.PACK GT SCH (20:11)
[2017-07-15] MEDS: MULTIVIT, IRON, MIN NO. 8, FA 1 TAB GT SCH (20:12)
[2017-07-15] MEDS: ENOXAPARIN SODIUM 40 MG/0.4 ML DISP.SYRIN SQ SCH (20:12)
[2017-07-15] MEDS: ZINC SULFATE 220 MG CAPSULE PO SCH (20:12)
[2017-07-15 20:39] VITALS: BP 100/65
[2017-07-15 20:41] VITALS: BP 105/54
[2017-07-15] MEDS: ATORVASTATIN CALCIUM 20MG TABLET GT SCH (21:11)
[2017-07-16] MEDS: CEFEPIME 2 GM in IV D5W 100 ML IV SCH ×3 (05:49→21:00)
[2017-07-16 07:49] VITALS: BP 104/55
[2017-07-16] MEDS: HYDROCODONE/APAP 10/325MG 1 EA TABLET GT SCH ×2 (09:00→21:29)
[2017-07-16] MEDS: NYSTATIN/TRIAMCIN 15 GM CREAM 15 GM TUBE TP SCH (09:00)
[2017-07-16] MEDS: ZINC OXIDE 30 GM TUBE TP SCH ×6 (09:00→21:34)
[2017-07-16] MEDS: NYSTATIN TOP POWDER 15 GM BOTTLE TP SCH (09:00)
[2017-07-16] MEDS: Z GUARD REMEDY 4 OZ OINT TP SCH ×2 (09:00→21:34)
[2017-07-16] MEDS: MINERAL OIL/PETROL OINT 396 GM JAR TP SCH ×2 (09:00→21:31)
[2017-07-16] MEDS: SILVER SULFADIAZINE CREAM 25 GM TUBE TP SCH (09:00)
[2017-07-16] MEDS: HYDROGEL DRESSING 90 GM TUBE TP SCH ×2 (09:00→21:31)
[2017-07-16] MEDS: NYSTATIN/TRIAMCIN CREAM 15 GM TUBE TP SCH ×8 (09:00→21:34)
[2017-07-16] MEDS: METHADONE HCL 10 MG TABLET GT SCH (09:58)
[2017-07-16] MEDS: GABAPENTIN 300 MG CAPSULE GT SCH ×3 (09:58→16:49)
[2017-07-16] MEDS: ACIDOPHILUS/BULGARICUS 1 EACH TAB.CHEW GT SCH ×3 (09:58→16:48)
[2017-07-16] MEDS: ESCITALOPRAM OXALATE (10 MG) 10 MG TABLET GT SCH (09:58)
[2017-07-16] MEDS: METOPROLOL TARTRATE 25 MG TABLET GT SCH ×2 (09:58→16:49)
[2017-07-16] MEDS: BACLOFEN (10 MG) 10 MG TABLET GT SCH ×4 (09:58→21:25)
[2017-07-16] MEDS: ASCORBIC ACID 500 MG TABLET GT SCH ×2 (09:59→16:49)
[2017-07-16] MEDS: CLOPIDOGREL BISULFATE 75 MG TABLET GT SCH (09:59)
[2017-07-16] MEDS: CALCITRIOL 0.25 MCG CAPSULE PO SCH (09:59)
[2017-07-16] MEDS: FAMOTIDINE (20 MG) 20 MG TABLET GT SCH ×2 (09:59→21:29)
[2017-07-16] MEDS: CALCIUM CARBONATE 500 MG TAB.CHEW GT SCH ×3 (09:59→16:49)
[2017-07-16] MEDS: PROSOURCE / PROSTAT (PYXIS) 30 ML UDC GT SCH ×3 (09:59→16:49)
[2017-07-16] MEDS: MAGNESIUM HYDROXIDE 30 ML UDC GT PRN (17:00)
[2017-07-16 20:32] VITALS: BP 143/78
[2017-07-16] MEDS: CRANBERRY GT SCH (21:25)
[2017-07-16] MEDS: POLYETHYLENE GLYCOL 3350 17 GM POWD.PACK GT SCH (21:26)
[2017-07-16] MEDS: MULTIVIT, IRON, MIN NO. 8, FA 1 TAB GT SCH (21:29)
[2017-07-16] MEDS: ZINC SULFATE 220 MG CAPSULE PO SCH (21:30)
[2017-07-16] MEDS: ENOXAPARIN SODIUM 40 MG/0.4 ML DISP.SYRIN SQ SCH (21:31)
[2017-07-16] MEDS: ATORVASTATIN CALCIUM 20MG TABLET GT SCH (21:35)
[2017-07-17] MEDS: CEFEPIME 2 GM in IV D5W 100 ML IV SCH ×3 (05:00→20:06)
[2017-07-17 07:40] VITALS: BP 110/65
[2017-07-17] MEDS: CALCITRIOL 0.25 MCG CAPSULE PO SCH (09:00)
[2017-07-17] MEDS: METOPROLOL TARTRATE 25 MG TABLET GT SCH ×2 (09:00→17:26)
[2017-07-17] MEDS: CLOPIDOGREL BISULFATE 75 MG TABLET GT SCH (09:00)
[2017-07-17] MEDS: BACLOFEN (10 MG) 10 MG TABLET GT SCH ×4 (09:00→21:34)
[2017-07-17] MEDS: CALCIUM CARBONATE 500 MG TAB.CHEW GT SCH ×3 (09:00→17:27)
[2017-07-17] MEDS: GABAPENTIN 300 MG CAPSULE GT SCH ×3 (09:00→17:27)
[2017-07-17] MEDS: ESCITALOPRAM OXALATE (10 MG) 10 MG TABLET GT SCH (09:00)
[2017-07-17] MEDS: METHADONE HCL 10 MG TABLET GT SCH (09:00)
[2017-07-17] MEDS: PROSOURCE / PROSTAT (PYXIS) 30 ML UDC GT SCH ×3 (09:00→17:27)
[2017-07-17] MEDS: ACIDOPHILUS/BULGARICUS 1 EACH TAB.CHEW GT SCH ×3 (09:00→17:24)
[2017-07-17] MEDS: FAMOTIDINE (20 MG) 20 MG TABLET GT SCH ×2 (09:00→21:35)
[2017-07-17] MEDS: ASCORBIC ACID 500 MG TABLET GT SCH ×2 (09:00→17:27)
[2017-07-17] MEDS: HYDROCODONE/APAP 10/325MG 1 EA TABLET GT SCH ×2 (10:00→21:35)
[2017-07-17] MEDS: MINERAL OIL/PETROL OINT 396 GM JAR TP SCH ×2 (11:30→21:37)
[2017-07-17] MEDS: NYSTATIN/TRIAMCIN 15 GM CREAM 15 GM TUBE TP SCH (11:30)
[2017-07-17] MEDS: HYDROGEL DRESSING 90 GM TUBE TP SCH ×2 (11:30→21:37)
[2017-07-17] MEDS: NYSTATIN TOP POWDER 15 GM BOTTLE TP SCH (11:30)
[2017-07-17] MEDS: Z GUARD REMEDY 4 OZ OINT TP SCH ×2 (11:30→21:37)
[2017-07-17] MEDS: ZINC OXIDE 30 GM TUBE TP SCH ×6 (11:30→21:38)
[2017-07-17] MEDS: NYSTATIN/TRIAMCIN CREAM 15 GM TUBE TP SCH ×8 (11:30→21:37)
[2017-07-17 20:00] VITALS: BP 127/68
[2017-07-17] MEDS: POLYETHYLENE GLYCOL 3350 17 GM POWD.PACK GT SCH (21:34)
[2017-07-17] MEDS: CRANBERRY GT SCH (21:34)
[2017-07-17] MEDS: ZINC SULFATE 220 MG CAPSULE PO SCH (21:36)
[2017-07-17] MEDS: MULTIVIT, IRON, MIN NO. 8, FA 1 TAB GT SCH (21:36)
[2017-07-17] MEDS: ENOXAPARIN SODIUM 40 MG/0.4 ML DISP.SYRIN SQ SCH (21:37)
[2017-07-17] MEDS: ATORVASTATIN CALCIUM 20MG TABLET GT SCH (21:38)
--- NOTE | 2017-07-17 23:34 | NUR ---
pt is verbally abusive and trying to spit on the nurses while doing wound care, nurses explain to the pt that they need to change the dressing because it is soak with blood, pt stated to leave him alone and wants to , when the nurses continue to change the dressing, pt start to spit and verbally abuse the nurses, pt start calling nurses bad names...
[2017-07-18] MEDS: CEFEPIME 2 GM in IV D5W 100 ML IV SCH ×3 (05:00→21:00)
[2017-07-18] MEDS: METOPROLOL TARTRATE 25 MG TABLET GT SCH ×2 (09:16→17:00)
[2017-07-18] MEDS: ACIDOPHILUS/BULGARICUS 1 EACH TAB.CHEW GT SCH ×3 (09:16→17:00)
[2017-07-18] MEDS: ESCITALOPRAM OXALATE (10 MG) 10 MG TABLET GT SCH (09:16)
[2017-07-18] MEDS: BACLOFEN (10 MG) 10 MG TABLET GT SCH ×4 (09:16→21:19)
[2017-07-18] MEDS: METHADONE HCL 10 MG TABLET GT SCH (09:17)
[2017-07-18] MEDS: CALCITRIOL 0.25 MCG CAPSULE PO SCH (09:17)
[2017-07-18] MEDS: CALCIUM CARBONATE 500 MG TAB.CHEW GT SCH ×3 (09:17→17:00)
[2017-07-18] MEDS: PROSOURCE / PROSTAT (PYXIS) 30 ML UDC GT SCH ×3 (09:17→17:00)
[2017-07-18] MEDS: GABAPENTIN 300 MG CAPSULE GT SCH ×3 (09:17→17:00)
[2017-07-18] MEDS: ASCORBIC ACID 500 MG TABLET GT SCH ×2 (09:17→17:00)
[2017-07-18] MEDS: CLOPIDOGREL BISULFATE 75 MG TABLET GT SCH (09:17)
[2017-07-18] MEDS: FAMOTIDINE (20 MG) 20 MG TABLET GT SCH ×2 (09:17→21:23)
[2017-07-18] MEDS: HYDROCODONE/APAP 10/325MG 1 EA TABLET GT SCH ×2 (10:00→21:23)
[2017-07-18] MEDS: ZINC OXIDE 30 GM TUBE TP SCH ×6 (11:00→21:25)
[2017-07-18] MEDS: MINERAL OIL/PETROL OINT 396 GM JAR TP SCH ×2 (11:00→21:24)
[2017-07-18] MEDS: Z GUARD REMEDY 4 OZ OINT TP SCH ×2 (11:00→21:24)
[2017-07-18] MEDS: NYSTATIN TOP POWDER 15 GM BOTTLE TP SCH (11:00)
[2017-07-18] MEDS: NYSTATIN/TRIAMCIN 15 GM CREAM 15 GM TUBE TP SCH (11:00)
[2017-07-18] MEDS: HYDROGEL DRESSING 90 GM TUBE TP SCH ×2 (11:00→21:24)
[2017-07-18] MEDS: NYSTATIN/TRIAMCIN CREAM 15 GM TUBE TP SCH ×8 (11:00→21:24)
[2017-07-18 20:09] VITALS: BP 114/76
[2017-07-18] MEDS: CRANBERRY GT SCH (21:18)
[2017-07-18] MEDS: MULTIVIT, IRON, MIN NO. 8, FA 1 TAB GT SCH (21:20)
[2017-07-18] MEDS: POLYETHYLENE GLYCOL 3350 17 GM POWD.PACK GT SCH (21:21)
[2017-07-18] MEDS: ZINC SULFATE 220 MG CAPSULE PO SCH (21:23)
[2017-07-18] MEDS: ENOXAPARIN SODIUM 40 MG/0.4 ML DISP.SYRIN SQ SCH (21:24)
[2017-07-18] MEDS: ATORVASTATIN CALCIUM 20MG TABLET GT SCH (21:25)
[2017-07-19] MEDS: CEFEPIME 2 GM in IV D5W 100 ML IV SCH ×3 (05:00→20:52)
[2017-07-19 08:13] VITALS: BP 133/90
[2017-07-19] MEDS: ESCITALOPRAM OXALATE (10 MG) 10 MG TABLET GT SCH (08:39)
[2017-07-19] MEDS: METOPROLOL TARTRATE 25 MG TABLET GT SCH ×2 (08:39→16:41)
[2017-07-19] MEDS: BACLOFEN (10 MG) 10 MG TABLET GT SCH ×4 (08:39→21:55)
[2017-07-19] MEDS: ACIDOPHILUS/BULGARICUS 1 EACH TAB.CHEW GT SCH ×3 (08:39→16:41)
[2017-07-19] MEDS: PROSOURCE / PROSTAT (PYXIS) 30 ML UDC GT SCH ×3 (08:41→16:41)
[2017-07-19] MEDS: GABAPENTIN 300 MG CAPSULE GT SCH ×3 (08:41→16:41)
[2017-07-19] MEDS: CALCITRIOL 0.25 MCG CAPSULE PO SCH (08:41)
[2017-07-19] MEDS: FAMOTIDINE (20 MG) 20 MG TABLET GT SCH ×2 (08:41→21:55)
[2017-07-19] MEDS: CLOPIDOGREL BISULFATE 75 MG TABLET GT SCH (08:41)
[2017-07-19] MEDS: CALCIUM CARBONATE 500 MG TAB.CHEW GT SCH ×3 (08:41→16:41)
[2017-07-19] MEDS: ASCORBIC ACID 500 MG TABLET GT SCH ×2 (08:41→16:41)
[2017-07-19] MEDS: METHADONE HCL 10 MG TABLET GT SCH (09:03)
[2017-07-19] MEDS: HYDROCODONE/APAP 10/325MG 1 EA TABLET GT SCH ×2 (11:30→21:55)
[2017-07-19] MEDS: MINERAL OIL/PETROL OINT 396 GM JAR TP SCH ×2 (12:30→21:56)
[2017-07-19] MEDS: NYSTATIN/TRIAMCIN CREAM 15 GM TUBE TP SCH ×8 (12:30→21:56)
[2017-07-19] MEDS: HYDROGEL DRESSING 90 GM TUBE TP SCH ×2 (12:30→21:56)
[2017-07-19] MEDS: NYSTATIN TOP POWDER 15 GM BOTTLE TP SCH (12:30)
[2017-07-19] MEDS: Z GUARD REMEDY 4 OZ OINT TP SCH ×2 (12:30→21:56)
[2017-07-19] MEDS: ZINC OXIDE 30 GM TUBE TP SCH ×6 (12:30→21:56)
[2017-07-19] MEDS: NYSTATIN/TRIAMCIN 15 GM CREAM 15 GM TUBE TP SCH (12:30)
--- NOTE | 2017-07-19 14:00 | NUR ---
Seen and examined by Yasmin Woods, CARLI, NNO given.
[2017-07-19] MEDS: ZINC SULFATE 220 MG CAPSULE PO SCH (21:55)
[2017-07-19] MEDS: CRANBERRY GT SCH (21:55)
[2017-07-19] MEDS: MULTIVIT, IRON, MIN NO. 8, FA 1 TAB GT SCH (21:55)
[2017-07-19] MEDS: POLYETHYLENE GLYCOL 3350 17 GM POWD.PACK GT SCH (21:55)
[2017-07-19] MEDS: ATORVASTATIN CALCIUM 20MG TABLET GT SCH (21:56)
[2017-07-19] MEDS: ENOXAPARIN SODIUM 40 MG/0.4 ML DISP.SYRIN SQ SCH (21:56)
[2017-07-20 00:02] VITALS: BP 123/75
[2017-07-20 08:11] VITALS: BP 129/77
[2017-07-20] MEDS: ACIDOPHILUS/BULGARICUS 1 EACH TAB.CHEW GT SCH ×3 (09:56→17:00)
[2017-07-20] MEDS: BACLOFEN (10 MG) 10 MG TABLET GT SCH ×4 (09:56→20:58)
[2017-07-20] MEDS: METOPROLOL TARTRATE 25 MG TABLET GT SCH ×2 (09:56→17:00)
[2017-07-20] MEDS: ESCITALOPRAM OXALATE (10 MG) 10 MG TABLET GT SCH (09:56)
[2017-07-20] MEDS: HYDROCODONE/APAP 10/325MG 1 EA TABLET GT SCH ×2 (09:57→20:58)
[2017-07-20] MEDS: ASCORBIC ACID 500 MG TABLET GT SCH ×2 (09:57→17:00)
[2017-07-20] MEDS: CLOPIDOGREL BISULFATE 75 MG TABLET GT SCH (09:57)
[2017-07-20] MEDS: GABAPENTIN 300 MG CAPSULE GT SCH ×3 (09:57→17:00)
[2017-07-20] MEDS: CALCIUM CARBONATE 500 MG TAB.CHEW GT SCH ×3 (09:57→17:00)
[2017-07-20] MEDS: FAMOTIDINE (20 MG) 20 MG TABLET GT SCH ×2 (09:57→20:58)
[2017-07-20] MEDS: PROSOURCE / PROSTAT (PYXIS) 30 ML UDC GT SCH ×3 (09:57→17:00)
[2017-07-20] MEDS: METHADONE HCL 10 MG TABLET GT SCH (09:57)
[2017-07-20] MEDS: CALCITRIOL 0.25 MCG CAPSULE PO SCH (09:57)
[2017-07-20] MEDS: MINERAL OIL/PETROL OINT 396 GM JAR TP SCH ×2 (10:30→20:58)
[2017-07-20] MEDS: ZINC OXIDE 30 GM TUBE TP SCH ×6 (10:30→20:59)
[2017-07-20] MEDS: NYSTATIN TOP POWDER 15 GM BOTTLE TP SCH (10:30)
[2017-07-20] MEDS: NYSTATIN/TRIAMCIN CREAM 15 GM TUBE TP SCH ×8 (10:30→20:59)
[2017-07-20] MEDS: Z GUARD REMEDY 4 OZ OINT TP SCH ×2 (10:30→20:59)
[2017-07-20] MEDS: HYDROGEL DRESSING 90 GM TUBE TP SCH ×2 (10:30→20:58)
[2017-07-20] MEDS: NYSTATIN/TRIAMCIN 15 GM CREAM 15 GM TUBE TP SCH (10:30)
[2017-07-20] MEDS: HYDROCODONE/APAP 5/325MG 1 EACH TABLET GT PRN (18:59)
[2017-07-20] MEDS: CRANBERRY GT SCH (20:58)
[2017-07-20] MEDS: ENOXAPARIN SODIUM 40 MG/0.4 ML DISP.SYRIN SQ SCH (20:58)
[2017-07-20] MEDS: POLYETHYLENE GLYCOL 3350 17 GM POWD.PACK GT SCH (20:58)
[2017-07-20] MEDS: MULTIVIT, IRON, MIN NO. 8, FA 1 TAB GT SCH (20:58)
[2017-07-20] MEDS: ZINC SULFATE 220 MG CAPSULE PO SCH (20:58)
[2017-07-20] MEDS: ATORVASTATIN CALCIUM 20MG TABLET GT SCH (21:00)
--- NOTE | 2017-07-20 21:19 | NUR ---
SEEN BY CARLI VELASCO WITH NEW ORDER FOR CBC IN AM 07/21/17.
[2017-07-21 01:04] VITALS: BP 125/73
[2017-07-21] MEDS: METHOCARBAMOL (750MG) 750 MG TABLET GT PRN (05:25)
[2017-07-21] MEDS: MAGNESIUM HYDROXIDE 30 ML UDC GT PRN (05:25)
[2017-07-21 07:09] LABS: BASOPHILS % (AUTO) 0.3 % (0.0-2.0); HEMATOCRIT 28 % (39-51); HEMOGLOBIN 8.7 g/dL (13.5-17.5); LYMPHOCYTES % (AUTO) 21.2 % (20.0-44.0); MEAN CORPUSCULAR HEMOGLOBIN 26 PG (26.0-33.0); MEAN CORPUSCULAR HGB CONC 32 g/dl (31.0-36.0); MEAN CORPUSCULAR VOLUME 82 fL (80-96); MONOCYTES # (AUTO) 0.7 /CMM (0.1-1.30); MONOCYTES % (AUTO) 7.7 % (2.0-12.0); NEUTROPHILS # (AUTO) 6.2 /CMM (1.8-8.9); NEUTROPHILS % (AUTO) 67.8 % (43.0-81.0); PLATELET COUNT (AUTO) 757 /CMM (150-450); RDW COEFFICIENT OF VARIATION 19.8 (11.5-15.0); RED BLOOD CELL COUNT(AUTO) 3.36 MIL/uL (4.5-6.0); WHITE BLOOD COUNT (AUTO) 9.2 K/uL (4.3-11.0)
[2017-07-21 07:27] VITALS: BP 105/69
[2017-07-21] MEDS: ACIDOPHILUS/BULGARICUS 1 EACH TAB.CHEW GT SCH ×3 (08:49→17:39)
[2017-07-21] MEDS: BACLOFEN (10 MG) 10 MG TABLET GT SCH ×4 (08:50→21:12)
[2017-07-21] MEDS: GABAPENTIN 300 MG CAPSULE GT SCH ×3 (08:50→17:40)
[2017-07-21] MEDS: METHADONE HCL 10 MG TABLET GT SCH (08:50)
[2017-07-21] MEDS: ESCITALOPRAM OXALATE (10 MG) 10 MG TABLET GT SCH (08:50)
[2017-07-21] MEDS: METOPROLOL TARTRATE 25 MG TABLET GT SCH ×2 (08:50→17:40)
[2017-07-21] MEDS: HYDROCODONE/APAP 10/325MG 1 EA TABLET GT SCH ×2 (08:50→21:12)
[2017-07-21] MEDS: FAMOTIDINE (20 MG) 20 MG TABLET GT SCH ×2 (08:51→21:12)
[2017-07-21] MEDS: PROSOURCE / PROSTAT (PYXIS) 30 ML UDC GT SCH ×3 (08:51→17:40)
[2017-07-21] MEDS: CALCITRIOL 0.25 MCG CAPSULE PO SCH (08:51)
[2017-07-21] MEDS: CALCIUM CARBONATE 500 MG TAB.CHEW GT SCH ×3 (08:51→17:40)
[2017-07-21] MEDS: CLOPIDOGREL BISULFATE 75 MG TABLET GT SCH (08:51)
[2017-07-21] MEDS: ASCORBIC ACID 500 MG TABLET GT SCH ×2 (08:51→17:40)
[2017-07-21] MEDS: ZINC OXIDE 30 GM TUBE TP SCH ×6 (09:57→21:13)
[2017-07-21] MEDS: NYSTATIN TOP POWDER 15 GM BOTTLE TP SCH (09:57)
[2017-07-21] MEDS: MINERAL OIL/PETROL OINT 396 GM JAR TP SCH ×2 (09:57→21:13)
[2017-07-21] MEDS: Z GUARD REMEDY 4 OZ OINT TP SCH ×2 (09:57→21:13)
[2017-07-21] MEDS: NYSTATIN/TRIAMCIN CREAM 15 GM TUBE TP SCH ×8 (09:57→21:13)
[2017-07-21] MEDS: HYDROGEL DRESSING 90 GM TUBE TP SCH ×2 (09:57→21:13)
[2017-07-21] MEDS: NYSTATIN/TRIAMCIN 15 GM CREAM 15 GM TUBE TP SCH (09:57)
--- NOTE | 2017-07-21 14:57 | NUR ---
INTERDISCIPLINARY TEAM CONFERENCE (IDT) was held today. Bzxtkx-fy-cod Vilma attended in person. Dr. Ugarte and the interdisciplinary team reviewed the current plan of care in detail. Orders as well as treatment and medications were reviewed. Patient readmitted from ICU with diagnosis of sepsis, all previous orders were resumed. In addition he came in with ATB orders for sepsis and pneumonia. All ATB completed on 07/19/2017. According to Vilma she noticed that he is back with his old self, talking and "quacking" to get attention. Dr. Ugarte seen CBC result done today WBC 9.2, Hbg 8.7 NNO given.
[2017-07-21 19:35] VITALS: BP 111/61
[2017-07-21] MEDS: POLYETHYLENE GLYCOL 3350 17 GM POWD.PACK GT SCH (21:12)
[2017-07-21] MEDS: MULTIVIT, IRON, MIN NO. 8, FA 1 TAB GT SCH (21:12)
[2017-07-21] MEDS: CRANBERRY GT SCH (21:12)
[2017-07-21] MEDS: ZINC SULFATE 220 MG CAPSULE PO SCH (21:12)
[2017-07-21] MEDS: ENOXAPARIN SODIUM 40 MG/0.4 ML DISP.SYRIN SQ SCH (21:13)
[2017-07-21] MEDS: ATORVASTATIN CALCIUM 20MG TABLET GT SCH (21:13)
[2017-07-22 08:00] VITALS: BP 145/75
[2017-07-22] MEDS: ACIDOPHILUS/BULGARICUS 1 EACH TAB.CHEW GT SCH ×3 (09:55→17:57)
[2017-07-22] MEDS: BACLOFEN (10 MG) 10 MG TABLET GT SCH ×4 (09:56→20:53)
[2017-07-22] MEDS: GABAPENTIN 300 MG CAPSULE GT SCH ×3 (09:56→17:58)
[2017-07-22] MEDS: METHADONE HCL 10 MG TABLET GT SCH (09:56)
[2017-07-22] MEDS: METOPROLOL TARTRATE 25 MG TABLET GT SCH ×2 (09:56→17:58)
[2017-07-22] MEDS: ESCITALOPRAM OXALATE (10 MG) 10 MG TABLET GT SCH (09:56)
[2017-07-22] MEDS: FAMOTIDINE (20 MG) 20 MG TABLET GT SCH ×2 (09:57→20:53)
[2017-07-22] MEDS: CALCIUM CARBONATE 500 MG TAB.CHEW GT SCH ×3 (09:57→17:58)
[2017-07-22] MEDS: PROSOURCE / PROSTAT (PYXIS) 30 ML UDC GT SCH ×3 (09:57→17:58)
[2017-07-22] MEDS: HYDROCODONE/APAP 10/325MG 1 EA TABLET GT SCH ×2 (09:57→20:53)
[2017-07-22] MEDS: CLOPIDOGREL BISULFATE 75 MG TABLET GT SCH (09:57)
[2017-07-22] MEDS: ASCORBIC ACID 500 MG TABLET GT SCH ×2 (09:57→17:58)
[2017-07-22] MEDS: CALCITRIOL 0.25 MCG CAPSULE PO SCH (09:57)
[2017-07-22] MEDS: NYSTATIN TOP POWDER 15 GM BOTTLE TP SCH (10:30)
[2017-07-22] MEDS: ZINC OXIDE 30 GM TUBE TP SCH ×6 (10:30→20:54)
[2017-07-22] MEDS: MINERAL OIL/PETROL OINT 396 GM JAR TP SCH ×2 (10:30→20:54)
[2017-07-22] MEDS: NYSTATIN/TRIAMCIN 15 GM CREAM 15 GM TUBE TP SCH (10:30)
[2017-07-22] MEDS: Z GUARD REMEDY 4 OZ OINT TP SCH ×2 (10:30→20:54)
[2017-07-22] MEDS: HYDROGEL DRESSING 90 GM TUBE TP SCH ×2 (10:30→20:54)
[2017-07-22] MEDS: NYSTATIN/TRIAMCIN CREAM 15 GM TUBE TP SCH ×8 (10:30→20:54)
[2017-07-22 19:44] VITALS: BP 121/94
[2017-07-22] MEDS: CRANBERRY GT SCH (20:53)
[2017-07-22] MEDS: POLYETHYLENE GLYCOL 3350 17 GM POWD.PACK GT SCH (20:53)
[2017-07-22] MEDS: MULTIVIT, IRON, MIN NO. 8, FA 1 TAB GT SCH (20:54)
[2017-07-22] MEDS: ENOXAPARIN SODIUM 40 MG/0.4 ML DISP.SYRIN SQ SCH (20:54)
[2017-07-22] MEDS: ZINC SULFATE 220 MG CAPSULE PO SCH (20:54)
[2017-07-22] MEDS: MAGNESIUM HYDROXIDE 30 ML UDC GT PRN (20:55)
[2017-07-22] MEDS: ATORVASTATIN CALCIUM 20MG TABLET GT SCH (21:08)
[2017-07-23 07:25] VITALS: BP 135/78
[2017-07-23] MEDS: BACLOFEN (10 MG) 10 MG TABLET GT SCH ×4 (09:41→21:26)
[2017-07-23] MEDS: ACIDOPHILUS/BULGARICUS 1 EACH TAB.CHEW GT SCH ×3 (09:41→16:48)
[2017-07-23] MEDS: ESCITALOPRAM OXALATE (10 MG) 10 MG TABLET GT SCH (09:41)
[2017-07-23] MEDS: METOPROLOL TARTRATE 25 MG TABLET GT SCH ×2 (09:42→16:49)
[2017-07-23] MEDS: METHADONE HCL 10 MG TABLET GT SCH (09:42)
[2017-07-23] MEDS: GABAPENTIN 300 MG CAPSULE GT SCH ×3 (09:43→16:49)
[2017-07-23] MEDS: CALCIUM CARBONATE 500 MG TAB.CHEW GT SCH ×3 (09:44→16:49)
[2017-07-23] MEDS: PROSOURCE / PROSTAT (PYXIS) 30 ML UDC GT SCH ×3 (09:44→16:49)
[2017-07-23] MEDS: CLOPIDOGREL BISULFATE 75 MG TABLET GT SCH (09:44)
[2017-07-23] MEDS: CALCITRIOL 0.25 MCG CAPSULE PO SCH (09:44)
[2017-07-23] MEDS: FAMOTIDINE (20 MG) 20 MG TABLET GT SCH ×2 (09:44→21:28)
[2017-07-23] MEDS: ASCORBIC ACID 500 MG TABLET GT SCH ×2 (09:44→16:49)
[2017-07-23] MEDS: HYDROCODONE/APAP 10/325MG 1 EA TABLET GT SCH ×2 (10:00→21:28)
[2017-07-23] MEDS: HYDROGEL DRESSING 90 GM TUBE TP SCH ×2 (10:30→21:29)
[2017-07-23] MEDS: MINERAL OIL/PETROL OINT 396 GM JAR TP SCH ×2 (10:30→21:29)
[2017-07-23] MEDS: NYSTATIN/TRIAMCIN CREAM 15 GM TUBE TP SCH ×8 (10:30→21:29)
[2017-07-23] MEDS: Z GUARD REMEDY 4 OZ OINT TP SCH ×2 (10:30→21:29)
[2017-07-23] MEDS: NYSTATIN/TRIAMCIN 15 GM CREAM 15 GM TUBE TP SCH (10:30)
[2017-07-23] MEDS: ZINC OXIDE 30 GM TUBE TP SCH ×2 (10:30→21:29)
[2017-07-23] MEDS: NYSTATIN TOP POWDER 15 GM BOTTLE TP SCH (10:30)
[2017-07-23 19:47] VITALS: BP 127/78
[2017-07-23] MEDS: CRANBERRY GT SCH (21:24)
[2017-07-23] MEDS: MULTIVIT, IRON, MIN NO. 8, FA 1 TAB GT SCH (21:25)
[2017-07-23] MEDS: POLYETHYLENE GLYCOL 3350 17 GM POWD.PACK GT SCH (21:26)
[2017-07-23] MEDS: ZINC SULFATE 220 MG CAPSULE PO SCH (21:28)
[2017-07-23] MEDS: ENOXAPARIN SODIUM 40 MG/0.4 ML DISP.SYRIN SQ SCH (21:29)
[2017-07-23] MEDS: ATORVASTATIN CALCIUM 20MG TABLET GT SCH (21:30)
[2017-07-24 07:53] VITALS: BP 130/70
[2017-07-24] MEDS: ACIDOPHILUS/BULGARICUS 1 EACH TAB.CHEW GT SCH ×3 (09:26→16:27)
[2017-07-24] MEDS: METOPROLOL TARTRATE 25 MG TABLET GT SCH ×2 (09:26→16:27)
[2017-07-24] MEDS: BACLOFEN (10 MG) 10 MG TABLET GT SCH ×4 (09:26→21:21)
[2017-07-24] MEDS: ESCITALOPRAM OXALATE (10 MG) 10 MG TABLET GT SCH (09:26)
[2017-07-24] MEDS: METHADONE HCL 10 MG TABLET GT SCH (09:27)
[2017-07-24] MEDS: GABAPENTIN 300 MG CAPSULE GT SCH ×3 (09:27→16:27)
[2017-07-24] MEDS: CALCIUM CARBONATE 500 MG TAB.CHEW GT SCH ×3 (09:28→16:27)
[2017-07-24] MEDS: FAMOTIDINE (20 MG) 20 MG TABLET GT SCH ×2 (09:28→21:23)
[2017-07-24] MEDS: CLOPIDOGREL BISULFATE 75 MG TABLET GT SCH (09:28)
[2017-07-24] MEDS: MINERAL OIL/PETROL OINT 396 GM JAR TP SCH ×2 (09:28→21:24)
[2017-07-24] MEDS: CALCITRIOL 0.25 MCG CAPSULE PO SCH (09:28)
[2017-07-24] MEDS: PROSOURCE / PROSTAT (PYXIS) 30 ML UDC GT SCH ×3 (09:28→16:27)
[2017-07-24] MEDS: ASCORBIC ACID 500 MG TABLET GT SCH ×2 (09:28→16:27)
[2017-07-24] MEDS: HYDROCODONE/APAP 10/325MG 1 EA TABLET GT SCH ×2 (12:50→21:23)
[2017-07-24] MEDS: NYSTATIN/TRIAMCIN 15 GM CREAM 15 GM TUBE TP SCH (13:50)
[2017-07-24] MEDS: NYSTATIN/TRIAMCIN CREAM 15 GM TUBE TP SCH ×8 (13:50→21:24)
[2017-07-24] MEDS: HYDROGEL DRESSING 90 GM TUBE TP SCH ×2 (13:50→21:24)
[2017-07-24] MEDS: Z GUARD REMEDY 4 OZ OINT TP SCH ×2 (13:50→21:24)
[2017-07-24] MEDS: NYSTATIN TOP POWDER 15 GM BOTTLE TP SCH (13:50)
[2017-07-24] MEDS: ZINC OXIDE 30 GM TUBE TP SCH ×2 (13:50→21:24)
--- NOTE | 2017-07-24 19:28 | NUR ---
CARLI Woods seen the pt and ordered CBC in am.New orders noted and carried out.
[2017-07-24 20:16] VITALS: BP 131/81
[2017-07-24] MEDS: MULTIVIT, IRON, MIN NO. 8, FA 1 TAB GT SCH (21:18)
[2017-07-24] MEDS: CRANBERRY GT SCH (21:19)
[2017-07-24] MEDS: POLYETHYLENE GLYCOL 3350 17 GM POWD.PACK GT SCH (21:21)
[2017-07-24] MEDS: ZINC SULFATE 220 MG CAPSULE PO SCH (21:23)
[2017-07-24] MEDS: ENOXAPARIN SODIUM 40 MG/0.4 ML DISP.SYRIN SQ SCH (21:24)
[2017-07-24] MEDS: ATORVASTATIN CALCIUM 20MG TABLET GT SCH (21:24)
[2017-07-25] MEDS: OXYCODONE GT PRN (04:27)
[2017-07-25] MEDS: APAP GT PRN (04:27)
--- NOTE | 2017-07-25 04:32 | NUR ---
PT is c/o severe gen.body pain, given prn med oxycodone 10-325mg and monitor pt if prn meds is effective.
[2017-07-25 08:23] VITALS: BP 128/69
[2017-07-25] MEDS: FAMOTIDINE (20 MG) 20 MG TABLET GT SCH ×2 (09:00→21:21)
[2017-07-25] MEDS: METOPROLOL TARTRATE 25 MG TABLET GT SCH ×2 (09:00→16:56)
[2017-07-25] MEDS: METHADONE HCL 10 MG TABLET GT SCH (09:00)
[2017-07-25] MEDS: PROSOURCE / PROSTAT (PYXIS) 30 ML UDC GT SCH ×3 (09:00→16:56)
[2017-07-25] MEDS: ESCITALOPRAM OXALATE (10 MG) 10 MG TABLET GT SCH (09:00)
[2017-07-25] MEDS: ASCORBIC ACID 500 MG TABLET GT SCH ×2 (09:00→16:57)
[2017-07-25] MEDS: GABAPENTIN 300 MG CAPSULE GT SCH ×3 (09:00→16:56)
[2017-07-25] MEDS: ACIDOPHILUS/BULGARICUS 1 EACH TAB.CHEW GT SCH ×3 (09:00→16:56)
[2017-07-25] MEDS: CLOPIDOGREL BISULFATE 75 MG TABLET GT SCH (09:00)
[2017-07-25] MEDS: CALCITRIOL 0.25 MCG CAPSULE PO SCH (09:00)
[2017-07-25] MEDS: CALCIUM CARBONATE 500 MG TAB.CHEW GT SCH ×3 (09:00→16:57)
[2017-07-25] MEDS: BACLOFEN (10 MG) 10 MG TABLET GT SCH ×4 (09:00→21:19)
--- NOTE | 2017-07-25 10:00 | NUR ---
Pt is refusing to take blood draw ijn the morning for lab works. made aware.
[2017-07-25] MEDS: HYDROCODONE/APAP 10/325MG 1 EA TABLET GT SCH ×2 (14:00→21:21)
[2017-07-25] MEDS: NYSTATIN TOP POWDER 15 GM BOTTLE TP SCH (15:00)
[2017-07-25] MEDS: Z GUARD REMEDY 4 OZ OINT TP SCH ×2 (15:00→21:22)
[2017-07-25] MEDS: NYSTATIN/TRIAMCIN 15 GM CREAM 15 GM TUBE TP SCH (15:00)
[2017-07-25] MEDS: MINERAL OIL/PETROL OINT 396 GM JAR TP SCH ×2 (15:00→21:21)
[2017-07-25] MEDS: NYSTATIN/TRIAMCIN CREAM 15 GM TUBE TP SCH ×8 (15:00→21:22)
[2017-07-25] MEDS: HYDROGEL DRESSING 90 GM TUBE TP SCH ×2 (15:00→21:22)
[2017-07-25] MEDS: ZINC OXIDE 30 GM TUBE TP SCH ×2 (15:00→21:22)
[2017-07-25 20:18] VITALS: BP 119/69
[2017-07-25] MEDS: CRANBERRY GT SCH (21:18)
[2017-07-25] MEDS: MULTIVIT, IRON, MIN NO. 8, FA 1 TAB GT SCH (21:18)
[2017-07-25] MEDS: POLYETHYLENE GLYCOL 3350 17 GM POWD.PACK GT SCH (21:19)
[2017-07-25] MEDS: ZINC SULFATE 220 MG CAPSULE PO SCH (21:21)
[2017-07-25] MEDS: ENOXAPARIN SODIUM 40 MG/0.4 ML DISP.SYRIN SQ SCH (21:21)
[2017-07-25] MEDS: ATORVASTATIN CALCIUM 20MG TABLET GT SCH (21:23)
[2017-07-26 08:14] VITALS: BP 123/78
[2017-07-26] MEDS: FAMOTIDINE (20 MG) 20 MG TABLET GT SCH ×2 (09:00→21:37)
[2017-07-26] MEDS: ASCORBIC ACID 500 MG TABLET GT SCH ×2 (09:00→17:33)
[2017-07-26] MEDS: CALCITRIOL 0.25 MCG CAPSULE PO SCH (09:00)
[2017-07-26] MEDS: PROSOURCE / PROSTAT (PYXIS) 30 ML UDC GT SCH ×3 (09:00→17:33)
[2017-07-26] MEDS: CALCIUM CARBONATE 500 MG TAB.CHEW GT SCH ×3 (09:00→17:33)
[2017-07-26] MEDS: GABAPENTIN 300 MG CAPSULE GT SCH ×3 (09:00→17:33)
[2017-07-26] MEDS: MINERAL OIL/PETROL OINT 396 GM JAR TP SCH ×2 (09:00→21:37)
[2017-07-26] MEDS: CLOPIDOGREL BISULFATE 75 MG TABLET GT SCH (09:00)
[2017-07-26] MEDS: BACLOFEN (10 MG) 10 MG TABLET GT SCH ×4 (09:59→21:35)
[2017-07-26] MEDS: ESCITALOPRAM OXALATE (10 MG) 10 MG TABLET GT SCH (09:59)
[2017-07-26] MEDS: ACIDOPHILUS/BULGARICUS 1 EACH TAB.CHEW GT SCH ×3 (09:59→17:32)
[2017-07-26] MEDS: METOPROLOL TARTRATE 25 MG TABLET GT SCH ×2 (09:59→17:32)
[2017-07-26] MEDS: METHADONE HCL 10 MG TABLET GT SCH (10:00)
--- NOTE | 2017-07-26 11:00 | NUR ---
Seen and examined by Bette Campoverde NP for Dr. Lemos, NNO given.
--- NOTE | 2017-07-26 11:03 | NUR ---
Seen and examined by Dr. Walker, NNO given.
[2017-07-26] MEDS: HYDROCODONE/APAP 10/325MG 1 EA TABLET GT SCH ×2 (14:00→21:36)
[2017-07-26] MEDS: ZINC OXIDE 30 GM TUBE TP SCH ×2 (15:00→21:38)
[2017-07-26] MEDS: NYSTATIN/TRIAMCIN CREAM 15 GM TUBE TP SCH ×8 (15:00→21:38)
[2017-07-26] MEDS: HYDROGEL DRESSING 90 GM TUBE TP SCH ×2 (15:00→21:37)
[2017-07-26] MEDS: NYSTATIN/TRIAMCIN 15 GM CREAM 15 GM TUBE TP SCH (15:00)
[2017-07-26] MEDS: NYSTATIN TOP POWDER 15 GM BOTTLE TP SCH (15:00)
[2017-07-26] MEDS: Z GUARD REMEDY 4 OZ OINT TP SCH (15:00)
[2017-07-26] MEDS: CRANBERRY GT SCH (21:15)
[2017-07-26] MEDS: POLYETHYLENE GLYCOL 3350 17 GM POWD.PACK GT SCH (21:35)
[2017-07-26] MEDS: ENOXAPARIN SODIUM 40 MG/0.4 ML DISP.SYRIN SQ SCH (21:37)
[2017-07-26] MEDS: ZINC SULFATE 220 MG CAPSULE PO SCH (21:37)
[2017-07-26] MEDS: MULTIVIT, IRON, MIN NO. 8, FA 1 TAB GT SCH (21:37)
[2017-07-26] MEDS: ATORVASTATIN CALCIUM 20MG TABLET GT SCH (21:38)
[2017-07-26 21:58] VITALS: BP 119/76
[2017-07-27 06:23] LABS: BASOPHILS % (AUTO) 0.4 % (0.0-2.0); EOSINOPHILS % (AUTO) 1.4 % (0.0-6.0); HEMATOCRIT 27 % (39-51); HEMOGLOBIN 8.6 g/dL (13.5-17.5); LYMPHOCYTES # (AUTO) 1.7 /CMM (0.8-4.8); LYMPHOCYTES % (AUTO) 16.4 % (20.0-44.0); MEAN CORPUSCULAR HEMOGLOBIN 26 PG (26.0-33.0); MEAN CORPUSCULAR HGB CONC 32 g/dl (31.0-36.0); MEAN CORPUSCULAR VOLUME 82 fL (80-96); MONOCYTES # (AUTO) 1.1 /CMM (0.1-1.30); MONOCYTES % (AUTO) 10.6 % (2.0-12.0); NEUTROPHILS # (AUTO) 7.2 /CMM (1.8-8.9); NEUTROPHILS % (AUTO) 71.2 % (43.0-81.0); PLATELET COUNT (AUTO) 506 /CMM (150-450); RDW COEFFICIENT OF VARIATION 19.9 (11.5-15.0); WHITE BLOOD COUNT (AUTO) 10.1 K/uL (4.3-11.0)
[2017-07-27 07:39] VITALS: BP 118/70
[2017-07-27] MEDS: METHADONE HCL 10 MG TABLET GT SCH (09:05)
[2017-07-27] MEDS: ACIDOPHILUS/BULGARICUS 1 EACH TAB.CHEW GT SCH ×3 (09:10→17:00)
[2017-07-27] MEDS: BACLOFEN (10 MG) 10 MG TABLET GT SCH ×4 (09:10→21:47)
[2017-07-27] MEDS: ESCITALOPRAM OXALATE (10 MG) 10 MG TABLET GT SCH (09:10)
[2017-07-27] MEDS: ASCORBIC ACID 500 MG TABLET GT SCH ×2 (09:11→17:00)
[2017-07-27] MEDS: CALCIUM CARBONATE 500 MG TAB.CHEW GT SCH ×3 (09:11→17:00)
[2017-07-27] MEDS: FAMOTIDINE (20 MG) 20 MG TABLET GT SCH ×2 (09:11→21:47)
[2017-07-27] MEDS: PROSOURCE / PROSTAT (PYXIS) 30 ML UDC GT SCH ×3 (09:11→17:00)
[2017-07-27] MEDS: GABAPENTIN 300 MG CAPSULE GT SCH ×3 (09:11→17:00)
[2017-07-27] MEDS: CALCITRIOL 0.25 MCG CAPSULE PO SCH (09:11)
[2017-07-27] MEDS: CLOPIDOGREL BISULFATE 75 MG TABLET GT SCH (09:11)
[2017-07-27] MEDS: METOPROLOL TARTRATE 25 MG TABLET GT SCH ×2 (09:11→17:00)
[2017-07-27] MEDS: HYDROCODONE/APAP 10/325MG 1 EA TABLET GT SCH ×2 (12:39→21:47)
[2017-07-27] MEDS: HYDROGEL DRESSING 90 GM TUBE TP SCH ×2 (13:39→21:48)
[2017-07-27] MEDS: NYSTATIN/TRIAMCIN CREAM 15 GM TUBE TP SCH ×8 (13:39→21:48)
[2017-07-27] MEDS: MINERAL OIL/PETROL OINT 396 GM JAR TP SCH ×2 (13:39→21:47)
[2017-07-27] MEDS: ZINC OXIDE 30 GM TUBE TP SCH ×2 (13:39→21:48)
[2017-07-27] MEDS: ZINC SULFATE 220 MG CAPSULE PO SCH (21:47)
[2017-07-27] MEDS: CRANBERRY GT SCH (21:47)
[2017-07-27] MEDS: MULTIVIT, IRON, MIN NO. 8, FA 1 TAB GT SCH (21:47)
[2017-07-27] MEDS: POLYETHYLENE GLYCOL 3350 17 GM POWD.PACK GT SCH (21:47)
[2017-07-27] MEDS: ENOXAPARIN SODIUM 40 MG/0.4 ML DISP.SYRIN SQ SCH (21:47)
[2017-07-27] MEDS: ATORVASTATIN CALCIUM 20MG TABLET GT SCH (21:48)
[2017-07-27 23:24] VITALS: BP 121/76
[2017-07-28 07:59] VITALS: BP 146/75
--- NOTE | 2017-07-28 08:30 | NUR ---
Seen and examined by Peggy Hoffman NP for Dr. Ugarte, New order given to send stool for OB and repeat CBC in 1 week. According to Peggy, to notify Dr. Walker if result is positive due to trending low HBG. Endorsed.
[2017-07-28] MEDS: MINERAL OIL/PETROL OINT 396 GM JAR TP SCH ×2 (09:00→21:16)
[2017-07-28] MEDS: ZINC OXIDE 30 GM TUBE TP SCH ×2 (09:00→21:16)
[2017-07-28] MEDS: HYDROCODONE/APAP 10/325MG 1 EA TABLET GT SCH ×2 (09:00→21:14)
[2017-07-28] MEDS: NYSTATIN/TRIAMCIN CREAM 15 GM TUBE TP SCH ×8 (09:00→21:16)
[2017-07-28] MEDS: HYDROGEL DRESSING 90 GM TUBE TP SCH ×2 (09:00→21:16)
[2017-07-28] MEDS: ACIDOPHILUS/BULGARICUS 1 EACH TAB.CHEW GT SCH ×3 (09:41→17:29)
[2017-07-28] MEDS: ESCITALOPRAM OXALATE (10 MG) 10 MG TABLET GT SCH (09:42)
[2017-07-28] MEDS: BACLOFEN (10 MG) 10 MG TABLET GT SCH ×4 (09:42→21:14)
[2017-07-28] MEDS: METOPROLOL TARTRATE 25 MG TABLET GT SCH ×2 (09:43→17:44)
[2017-07-28] MEDS: METHADONE HCL 10 MG TABLET GT SCH (09:45)
[2017-07-28] MEDS: GABAPENTIN 300 MG CAPSULE GT SCH ×3 (09:45→17:30)
[2017-07-28] MEDS: PROSOURCE / PROSTAT (PYXIS) 30 ML UDC GT SCH ×3 (09:47→17:30)
[2017-07-28] MEDS: CLOPIDOGREL BISULFATE 75 MG TABLET GT SCH (09:47)
[2017-07-28] MEDS: FAMOTIDINE (20 MG) 20 MG TABLET GT SCH ×2 (09:47→21:14)
[2017-07-28] MEDS: ASCORBIC ACID 500 MG TABLET GT SCH ×2 (09:48→17:30)
[2017-07-28] MEDS: CALCITRIOL 0.25 MCG CAPSULE PO SCH (09:48)
[2017-07-28] MEDS: CALCIUM CARBONATE 500 MG TAB.CHEW GT SCH ×3 (09:48→17:30)
[2017-07-28 17:09] LABS: OCCULT BLOOD STOOL NEGATIVE (NEGATIVE)
[2017-07-28] MEDS: CRANBERRY GT SCH (21:13)
[2017-07-28] MEDS: POLYETHYLENE GLYCOL 3350 17 GM POWD.PACK GT SCH (21:14)
[2017-07-28] MEDS: ZINC SULFATE 220 MG CAPSULE PO SCH (21:15)
[2017-07-28] MEDS: MULTIVIT, IRON, MIN NO. 8, FA 1 TAB GT SCH (21:15)
[2017-07-28] MEDS: ENOXAPARIN SODIUM 40 MG/0.4 ML DISP.SYRIN SQ SCH (21:16)
[2017-07-28] MEDS: ATORVASTATIN CALCIUM 20MG TABLET GT SCH (21:16)
[2017-07-28 23:02] VITALS: BP 115/88
[2017-07-29 04:49] LABS: OCCULT BLOOD STOOL NEGATIVE (NEGATIVE)
[2017-07-29 07:38] VITALS: BP 129/74
[2017-07-29] MEDS: ESCITALOPRAM OXALATE (10 MG) 10 MG TABLET GT SCH (09:13)
[2017-07-29] MEDS: ACIDOPHILUS/BULGARICUS 1 EACH TAB.CHEW GT SCH ×3 (09:13→17:00)
[2017-07-29] MEDS: BACLOFEN (10 MG) 10 MG TABLET GT SCH ×4 (09:13→21:29)
[2017-07-29] MEDS: ASCORBIC ACID 500 MG TABLET GT SCH ×2 (09:14→17:00)
[2017-07-29] MEDS: MINERAL OIL/PETROL OINT 396 GM JAR TP SCH ×2 (09:14→21:29)
[2017-07-29] MEDS: METOPROLOL TARTRATE 25 MG TABLET GT SCH ×2 (09:14→17:00)
[2017-07-29] MEDS: FAMOTIDINE (20 MG) 20 MG TABLET GT SCH ×2 (09:14→21:29)
[2017-07-29] MEDS: GABAPENTIN 300 MG CAPSULE GT SCH ×3 (09:14→17:00)
[2017-07-29] MEDS: CALCITRIOL 0.25 MCG CAPSULE PO SCH (09:14)
[2017-07-29] MEDS: CLOPIDOGREL BISULFATE 75 MG TABLET GT SCH (09:14)
[2017-07-29] MEDS: METHADONE HCL 10 MG TABLET GT SCH (09:14)
[2017-07-29] MEDS: CALCIUM CARBONATE 500 MG TAB.CHEW GT SCH ×3 (09:14→17:00)
[2017-07-29] MEDS: PROSOURCE / PROSTAT (PYXIS) 30 ML UDC GT SCH ×3 (09:14→17:00)
[2017-07-29] MEDS: HYDROCODONE/APAP 10/325MG 1 EA TABLET GT SCH ×2 (13:44→21:30)
[2017-07-29] MEDS: HYDROGEL DRESSING 90 GM TUBE TP SCH ×2 (14:45→21:29)
[2017-07-29] MEDS: NYSTATIN/TRIAMCIN CREAM 15 GM TUBE TP SCH ×8 (14:45→21:31)
[2017-07-29] MEDS: ZINC OXIDE 30 GM TUBE TP SCH ×2 (14:45→21:31)
[2017-07-29 20:40] VITALS: BP 110/67
[2017-07-29] MEDS: MULTIVIT, IRON, MIN NO. 8, FA 1 TAB GT SCH (21:29)
[2017-07-29] MEDS: ENOXAPARIN SODIUM 40 MG/0.4 ML DISP.SYRIN SQ SCH (21:29)
[2017-07-29] MEDS: ZINC SULFATE 220 MG CAPSULE PO SCH (21:29)
[2017-07-29] MEDS: CRANBERRY GT SCH (21:29)
[2017-07-29] MEDS: POLYETHYLENE GLYCOL 3350 17 GM POWD.PACK GT SCH (21:29)
[2017-07-29] MEDS: ATORVASTATIN CALCIUM 20MG TABLET GT SCH (21:31)
[2017-07-30 07:45] VITALS: BP 125/75
[2017-07-30] MEDS: ACIDOPHILUS/BULGARICUS 1 EACH TAB.CHEW GT SCH ×3 (09:00→16:48)
[2017-07-30] MEDS: MINERAL OIL/PETROL OINT 396 GM JAR TP SCH ×2 (09:00→21:22)
[2017-07-30] MEDS: BACLOFEN (10 MG) 10 MG TABLET GT SCH ×4 (09:00→21:21)
[2017-07-30] MEDS: CLOPIDOGREL BISULFATE 75 MG TABLET GT SCH (09:00)
[2017-07-30] MEDS: ASCORBIC ACID 500 MG TABLET GT SCH ×2 (09:00→16:48)
[2017-07-30] MEDS: PROSOURCE / PROSTAT (PYXIS) 30 ML UDC GT SCH ×3 (09:00→16:48)
[2017-07-30] MEDS: ZINC OXIDE 30 GM TUBE TP SCH ×2 (09:00→21:22)
[2017-07-30] MEDS: FAMOTIDINE (20 MG) 20 MG TABLET GT SCH ×2 (09:00→21:21)
[2017-07-30] MEDS: HYDROGEL DRESSING 90 GM TUBE TP SCH ×2 (09:00→21:22)
[2017-07-30] MEDS: CALCIUM CARBONATE 500 MG TAB.CHEW GT SCH ×3 (09:00→16:48)
[2017-07-30] MEDS: CALCITRIOL 0.25 MCG CAPSULE PO SCH (09:00)
[2017-07-30] MEDS: HYDROCODONE/APAP 10/325MG 1 EA TABLET GT SCH ×2 (09:00→21:21)
[2017-07-30] MEDS: METOPROLOL TARTRATE 25 MG TABLET GT SCH ×2 (09:00→16:48)
[2017-07-30] MEDS: METHADONE HCL 10 MG TABLET GT SCH (09:00)
[2017-07-30] MEDS: GABAPENTIN 300 MG CAPSULE GT SCH ×3 (09:00→16:48)
[2017-07-30] MEDS: ESCITALOPRAM OXALATE (10 MG) 10 MG TABLET GT SCH (09:00)
[2017-07-30] MEDS: NYSTATIN/TRIAMCIN CREAM 15 GM TUBE TP SCH ×8 (09:00→21:22)
[2017-07-30 20:05] VITALS: BP 98/71
[2017-07-30] MEDS: CRANBERRY GT SCH (21:20)
[2017-07-30] MEDS: POLYETHYLENE GLYCOL 3350 17 GM POWD.PACK GT SCH (21:21)
[2017-07-30] MEDS: ATORVASTATIN CALCIUM 20MG TABLET GT SCH (21:22)
[2017-07-30] MEDS: ZINC SULFATE 220 MG CAPSULE PO SCH (21:22)
[2017-07-30] MEDS: ENOXAPARIN SODIUM 40 MG/0.4 ML DISP.SYRIN SQ SCH (21:22)
[2017-07-30] MEDS: MULTIVIT, IRON, MIN NO. 8, FA 1 TAB GT SCH (21:22)
[2017-07-31 08:06] VITALS: BP 116/65
[2017-07-31] MEDS: ZINC OXIDE 30 GM TUBE TP SCH ×2 (09:00→22:10)
[2017-07-31] MEDS: GABAPENTIN 300 MG CAPSULE GT SCH ×3 (09:00→17:11)
[2017-07-31] MEDS: CALCIUM CARBONATE 500 MG TAB.CHEW GT SCH ×3 (09:00→17:11)
[2017-07-31] MEDS: MINERAL OIL/PETROL OINT 396 GM JAR TP SCH ×2 (09:00→22:10)
[2017-07-31] MEDS: METOPROLOL TARTRATE 25 MG TABLET GT SCH ×2 (09:00→17:11)
[2017-07-31] MEDS: PROSOURCE / PROSTAT (PYXIS) 30 ML UDC GT SCH ×3 (09:00→17:11)
[2017-07-31] MEDS: HYDROGEL DRESSING 90 GM TUBE TP SCH ×2 (09:00→22:10)
[2017-07-31] MEDS: CLOPIDOGREL BISULFATE 75 MG TABLET GT SCH (09:00)
[2017-07-31] MEDS: BACLOFEN (10 MG) 10 MG TABLET GT SCH ×4 (09:00→21:36)
[2017-07-31] MEDS: FAMOTIDINE (20 MG) 20 MG TABLET GT SCH ×2 (09:00→21:37)
[2017-07-31] MEDS: ASCORBIC ACID 500 MG TABLET GT SCH ×2 (09:00→17:11)
[2017-07-31] MEDS: CALCITRIOL 0.25 MCG CAPSULE PO SCH (09:00)
[2017-07-31] MEDS: NYSTATIN/TRIAMCIN CREAM 15 GM TUBE TP SCH ×8 (09:00→22:10)
[2017-07-31] MEDS: ESCITALOPRAM OXALATE (10 MG) 10 MG TABLET GT SCH (09:00)
[2017-07-31] MEDS: ACIDOPHILUS/BULGARICUS 1 EACH TAB.CHEW GT SCH ×3 (09:00→17:10)
[2017-07-31] MEDS: HYDROCODONE/APAP 10/325MG 1 EA TABLET GT SCH ×2 (09:00→21:37)
[2017-07-31] MEDS: METHADONE HCL 10 MG TABLET GT SCH (09:00)
[2017-07-31 20:05] VITALS: BP 112/68
[2017-07-31] MEDS: POLYETHYLENE GLYCOL 3350 17 GM POWD.PACK GT SCH (21:36)
[2017-07-31] MEDS: CRANBERRY GT SCH (21:36)
[2017-07-31] MEDS: ATORVASTATIN CALCIUM 20MG TABLET GT SCH (21:37)
[2017-07-31] MEDS: MULTIVIT, IRON, MIN NO. 8, FA 1 TAB GT SCH (21:37)
[2017-07-31] MEDS: ZINC SULFATE 220 MG CAPSULE PO SCH (22:10)
[2017-08-01] MEDS: HYDROCODONE/APAP 5/325MG 1 EACH TABLET GT PRN (04:02)
[2017-08-01 07:40] VITALS: BP 130/79
[2017-08-01] MEDS: METOPROLOL TARTRATE 25 MG TABLET GT SCH ×2 (09:37→17:00)
[2017-08-01] MEDS: ACIDOPHILUS/BULGARICUS 1 EACH TAB.CHEW GT SCH ×3 (09:37→17:46)
[2017-08-01] MEDS: ESCITALOPRAM OXALATE (10 MG) 10 MG TABLET GT SCH (09:37)
[2017-08-01] MEDS: BACLOFEN (10 MG) 10 MG TABLET GT SCH ×4 (09:37→21:10)
[2017-08-01] MEDS: METHADONE HCL 10 MG TABLET GT SCH (09:38)
[2017-08-01] MEDS: GABAPENTIN 300 MG CAPSULE GT SCH ×3 (09:39→17:50)
[2017-08-01] MEDS: PROSOURCE / PROSTAT (PYXIS) 30 ML UDC GT SCH ×3 (09:39→17:50)
[2017-08-01] MEDS: CLOPIDOGREL BISULFATE 75 MG TABLET GT SCH (09:39)
[2017-08-01] MEDS: FAMOTIDINE (20 MG) 20 MG TABLET GT SCH ×2 (09:39→21:11)
[2017-08-01] MEDS: CALCIUM CARBONATE 500 MG TAB.CHEW GT SCH ×3 (09:40→17:50)
[2017-08-01] MEDS: CALCITRIOL 0.25 MCG CAPSULE PO SCH (09:41)
[2017-08-01] MEDS: ASCORBIC ACID 500 MG TABLET GT SCH ×2 (09:41→17:50)
[2017-08-01] MEDS: HYDROCODONE/APAP 10/325MG 1 EA TABLET GT SCH ×2 (11:00→21:11)
[2017-08-01] MEDS: ZINC OXIDE 30 GM TUBE TP SCH ×2 (11:30→21:46)
[2017-08-01] MEDS: NYSTATIN/TRIAMCIN CREAM 15 GM TUBE TP SCH ×8 (11:30→21:46)
[2017-08-01] MEDS: MINERAL OIL/PETROL OINT 396 GM JAR TP SCH ×2 (11:30→21:45)
[2017-08-01] MEDS: HYDROGEL DRESSING 90 GM TUBE TP SCH ×2 (11:30→21:45)
[2017-08-01 20:13] VITALS: BP 112/66
[2017-08-01] MEDS: CRANBERRY GT SCH (21:10)
[2017-08-01] MEDS: POLYETHYLENE GLYCOL 3350 17 GM POWD.PACK GT SCH (21:10)
[2017-08-01] MEDS: MULTIVIT, IRON, MIN NO. 8, FA 1 TAB GT SCH (21:11)
[2017-08-01] MEDS: ATORVASTATIN CALCIUM 20MG TABLET GT SCH (21:11)
[2017-08-01] MEDS: ZINC SULFATE 220 MG CAPSULE PO SCH (21:11)
[2017-08-02 07:49] VITALS: BP 116/56
[2017-08-02] MEDS: ESCITALOPRAM OXALATE (10 MG) 10 MG TABLET GT SCH (09:00)
[2017-08-02] MEDS: CALCIUM CARBONATE 500 MG TAB.CHEW GT SCH ×3 (09:00→17:48)
[2017-08-02] MEDS: ZINC OXIDE 30 GM TUBE TP SCH ×2 (09:00→21:41)
[2017-08-02] MEDS: CALCITRIOL 0.25 MCG CAPSULE PO SCH (09:00)
[2017-08-02] MEDS: METOPROLOL TARTRATE 25 MG TABLET GT SCH ×2 (09:00→17:48)
[2017-08-02] MEDS: HYDROCODONE/APAP 10/325MG 1 EA TABLET GT SCH ×2 (09:00→21:02)
[2017-08-02] MEDS: ASCORBIC ACID 500 MG TABLET GT SCH ×2 (09:00→17:48)
[2017-08-02] MEDS: METHADONE HCL 10 MG TABLET GT SCH (09:00)
[2017-08-02] MEDS: CLOPIDOGREL BISULFATE 75 MG TABLET GT SCH (09:00)
[2017-08-02] MEDS: FAMOTIDINE (20 MG) 20 MG TABLET GT SCH ×2 (09:00→21:02)
[2017-08-02] MEDS: PROSOURCE / PROSTAT (PYXIS) 30 ML UDC GT SCH ×3 (09:00→17:48)
[2017-08-02] MEDS: HYDROGEL DRESSING 90 GM TUBE TP SCH ×2 (09:00→21:40)
[2017-08-02] MEDS: MINERAL OIL/PETROL OINT 396 GM JAR TP SCH ×2 (09:00→21:40)
[2017-08-02] MEDS: GABAPENTIN 300 MG CAPSULE GT SCH ×3 (09:00→17:48)
[2017-08-02] MEDS: BACLOFEN (10 MG) 10 MG TABLET GT SCH ×4 (09:00→21:01)
[2017-08-02] MEDS: ACIDOPHILUS/BULGARICUS 1 EACH TAB.CHEW GT SCH ×3 (09:00→17:48)
[2017-08-02] MEDS: NYSTATIN/TRIAMCIN CREAM 15 GM TUBE TP SCH ×8 (09:00→21:41)
--- NOTE | 2017-08-02 17:20 | NUR ---
Notified Dr. Walker that patient's F/C came out and unable to reinsert encountering a lot of resistance. At this time patient is voiding but he needs his Jackman catheter for wound management. He said to call Demario Padilla NP at night to try and reinsert F/C. Endorsed to night shift supervisor.
[2017-08-02] MEDS: CRANBERRY GT SCH (21:01)
[2017-08-02] MEDS: POLYETHYLENE GLYCOL 3350 17 GM POWD.PACK GT SCH (21:01)
[2017-08-02] MEDS: ZINC SULFATE 220 MG CAPSULE PO SCH (21:02)
[2017-08-02] MEDS: MULTIVIT, IRON, MIN NO. 8, FA 1 TAB GT SCH (21:02)
[2017-08-02] MEDS: ATORVASTATIN CALCIUM 20MG TABLET GT SCH (21:41)
[2017-08-02 22:15] VITALS: BP 113/69
--- NOTE | 2017-08-02 23:00 | NUR ---
Pt yarbrough catheter inserted F# 16 with 6cc balloon without difficulty with clear urine output.Secured tubing properly.Will continue to monitor.
[2017-08-03 06:37] LABS: BASOPHILS % (AUTO) 0.4 % (0.0-2.0); EOSINOPHILS % (AUTO) 2.8 % (0.0-6.0); HEMATOCRIT 34 % (39-51); HEMOGLOBIN 10.5 g/dL (13.5-17.5); LYMPHOCYTES # (AUTO) 1.9 /CMM (0.8-4.8); LYMPHOCYTES % (AUTO) 15.2 % (20.0-44.0); MEAN CORPUSCULAR HEMOGLOBIN 27 PG (26.0-33.0); MEAN CORPUSCULAR HGB CONC 31 g/dl (31.0-36.0); MEAN CORPUSCULAR VOLUME 85 fL (80-96); MONOCYTES # (AUTO) 2.7 /CMM (0.1-1.30); MONOCYTES % (AUTO) 21.9 % (2.0-12.0); NEUTROPHILS # (AUTO) 7.4 /CMM (1.8-8.9); NEUTROPHILS % (AUTO) 59.7 % (43.0-81.0); PLATELET COUNT (AUTO) 446 /CMM (150-450); RDW COEFFICIENT OF VARIATION 19.3 (11.5-15.0); RED BLOOD CELL COUNT(AUTO) 3.96 MIL/uL (4.5-6.0); WHITE BLOOD COUNT (AUTO) 12.4 K/uL (4.3-11.0)
[2017-08-03 08:00] VITALS: BP 124/58
[2017-08-03 08:25] LABS: LYMPHOCYTES % (MANUAL) 14 % (16-48); MONOCYTES % (MANUAL) 21 % (0-11.0); NEUTROPHILS % (MANUAL) 65 (42-76)
[2017-08-03] MEDS: ZINC OXIDE 30 GM TUBE TP SCH ×2 (09:00→21:44)
[2017-08-03] MEDS: PROSOURCE / PROSTAT (PYXIS) 30 ML UDC GT SCH ×3 (09:30→17:00)
[2017-08-03] MEDS: ACIDOPHILUS/BULGARICUS 1 EACH TAB.CHEW GT SCH ×3 (09:30→17:00)
[2017-08-03] MEDS: MINERAL OIL/PETROL OINT 396 GM JAR TP SCH ×2 (09:30→21:44)
[2017-08-03] MEDS: ASCORBIC ACID 500 MG TABLET GT SCH ×2 (09:30→17:00)
[2017-08-03] MEDS: METOPROLOL TARTRATE 25 MG TABLET GT SCH ×2 (09:30→17:00)
[2017-08-03] MEDS: METHADONE HCL 10 MG TABLET GT SCH (09:30)
[2017-08-03] MEDS: BACLOFEN (10 MG) 10 MG TABLET GT SCH ×4 (09:30→21:42)
[2017-08-03] MEDS: CALCIUM CARBONATE 500 MG TAB.CHEW GT SCH ×3 (09:30→17:00)
[2017-08-03] MEDS: GABAPENTIN 300 MG CAPSULE GT SCH ×3 (09:30→17:00)
[2017-08-03] MEDS: FAMOTIDINE (20 MG) 20 MG TABLET GT SCH ×2 (09:30→21:43)
[2017-08-03] MEDS: CLOPIDOGREL BISULFATE 75 MG TABLET GT SCH (09:30)
[2017-08-03] MEDS: CALCITRIOL 0.25 MCG CAPSULE PO SCH (09:30)
[2017-08-03] MEDS: ESCITALOPRAM OXALATE (10 MG) 10 MG TABLET GT SCH (09:30)
[2017-08-03] MEDS: HYDROGEL DRESSING 90 GM TUBE TP SCH ×2 (09:31→21:44)
--- NOTE | 2017-08-03 10:12 | NUR ---
Relayed lab result to Dr. Walker: WBC 12.4, Hgb 10.5. Pt afebrile 98.4. NNO given.
[2017-08-03] MEDS: HYDROCODONE/APAP 10/325MG 1 EA TABLET GT SCH ×2 (11:00→21:43)
[2017-08-03] MEDS: NYSTATIN/TRIAMCIN CREAM 15 GM TUBE TP SCH ×8 (12:00→21:44)
--- NOTE | 2017-08-03 12:30 | NUR ---
Seen by DIE HARDENER Peggy Hoffman. Notified her of lab result: Hgb improved 10.5. NNO given.
[2017-08-03] MEDS: CRANBERRY GT SCH (21:42)
[2017-08-03] MEDS: POLYETHYLENE GLYCOL 3350 17 GM POWD.PACK GT SCH (21:42)
[2017-08-03] MEDS: ZINC SULFATE 220 MG CAPSULE PO SCH (21:43)
[2017-08-03] MEDS: MULTIVIT, IRON, MIN NO. 8, FA 1 TAB GT SCH (21:43)
[2017-08-03] MEDS: ENOXAPARIN SODIUM 40 MG/0.4 ML DISP.SYRIN SQ SCH (21:43)
[2017-08-03] MEDS: ATORVASTATIN CALCIUM 20MG TABLET GT SCH (21:44)
[2017-08-03 21:53] VITALS: BP 121/68
[2017-08-04 07:37] VITALS: BP 111/59
[2017-08-04] MEDS: BACLOFEN (10 MG) 10 MG TABLET GT SCH ×4 (09:35→21:28)
[2017-08-04] MEDS: ACIDOPHILUS/BULGARICUS 1 EACH TAB.CHEW GT SCH ×3 (09:35→16:18)
[2017-08-04] MEDS: ESCITALOPRAM OXALATE (10 MG) 10 MG TABLET GT SCH (09:35)
[2017-08-04] MEDS: METOPROLOL TARTRATE 25 MG TABLET GT SCH ×2 (09:36→16:16)
[2017-08-04] MEDS: CLOPIDOGREL BISULFATE 75 MG TABLET GT SCH (09:36)
[2017-08-04] MEDS: METHADONE HCL 10 MG TABLET GT SCH (09:36)
[2017-08-04] MEDS: GABAPENTIN 300 MG CAPSULE GT SCH ×3 (09:36→16:18)
[2017-08-04] MEDS: CALCIUM CARBONATE 500 MG TAB.CHEW GT SCH ×3 (09:36→16:18)
[2017-08-04] MEDS: PROSOURCE / PROSTAT (PYXIS) 30 ML UDC GT SCH ×3 (09:36→16:18)
[2017-08-04] MEDS: ASCORBIC ACID 500 MG TABLET GT SCH ×2 (09:36→16:16)
[2017-08-04] MEDS: CALCITRIOL 0.25 MCG CAPSULE PO SCH (09:36)
[2017-08-04] MEDS: MINERAL OIL/PETROL OINT 396 GM JAR TP SCH ×2 (09:36→21:29)
[2017-08-04] MEDS: FAMOTIDINE (20 MG) 20 MG TABLET GT SCH ×2 (09:36→21:28)
[2017-08-04] MEDS: HYDROCODONE/APAP 10/325MG 1 EA TABLET GT SCH ×2 (10:00→21:28)
[2017-08-04] MEDS: HYDROGEL DRESSING 90 GM TUBE TP SCH ×2 (11:00→21:29)
[2017-08-04] MEDS: ZINC OXIDE 30 GM TUBE TP SCH ×2 (11:00→21:30)
[2017-08-04] MEDS: NYSTATIN/TRIAMCIN CREAM 15 GM TUBE TP SCH ×8 (11:00→21:29)
[2017-08-04] MEDS: MAGNESIUM HYDROXIDE 30 ML UDC GT PRN (16:17)
[2017-08-04] MEDS: METHOCARBAMOL (750MG) 750 MG TABLET GT PRN (16:17)
[2017-08-04] MEDS: OXYCODONE GT PRN (16:17)
[2017-08-04] MEDS: APAP GT PRN (16:17)
[2017-08-04] MEDS: CRANBERRY GT SCH (21:28)
[2017-08-04] MEDS: POLYETHYLENE GLYCOL 3350 17 GM POWD.PACK GT SCH (21:28)
[2017-08-04] MEDS: ZINC SULFATE 220 MG CAPSULE PO SCH (21:29)
[2017-08-04] MEDS: ENOXAPARIN SODIUM 40 MG/0.4 ML DISP.SYRIN SQ SCH (21:29)
[2017-08-04] MEDS: MULTIVIT, IRON, MIN NO. 8, FA 1 TAB GT SCH (21:29)
[2017-08-04] MEDS: ATORVASTATIN CALCIUM 20MG TABLET GT SCH (21:30)
[2017-08-05 02:47] VITALS: BP 121/68
[2017-08-05 07:46] VITALS: BP 143/78
[2017-08-05] MEDS: MINERAL OIL/PETROL OINT 396 GM JAR TP SCH ×2 (09:00→21:00)
[2017-08-05] MEDS: ACIDOPHILUS/BULGARICUS 1 EACH TAB.CHEW GT SCH ×3 (09:02→17:37)
[2017-08-05] MEDS: ESCITALOPRAM OXALATE (10 MG) 10 MG TABLET GT SCH (09:02)
[2017-08-05] MEDS: BACLOFEN (10 MG) 10 MG TABLET GT SCH ×4 (09:02→21:00)
[2017-08-05] MEDS: METHADONE HCL 10 MG TABLET GT SCH (09:03)
[2017-08-05] MEDS: METOPROLOL TARTRATE 25 MG TABLET GT SCH ×2 (09:03→17:00)
[2017-08-05] MEDS: FAMOTIDINE (20 MG) 20 MG TABLET GT SCH ×2 (09:03→21:00)
[2017-08-05] MEDS: GABAPENTIN 300 MG CAPSULE GT SCH ×3 (09:03→17:38)
[2017-08-05] MEDS: CLOPIDOGREL BISULFATE 75 MG TABLET GT SCH (09:03)
[2017-08-05] MEDS: CALCITRIOL 0.25 MCG CAPSULE PO SCH (09:04)
[2017-08-05] MEDS: CALCIUM CARBONATE 500 MG TAB.CHEW GT SCH ×3 (09:04→17:38)
[2017-08-05] MEDS: PROSOURCE / PROSTAT (PYXIS) 30 ML UDC GT SCH ×3 (09:04→17:38)
[2017-08-05] MEDS: ASCORBIC ACID 500 MG TABLET GT SCH ×2 (09:04→17:38)
[2017-08-05] MEDS: HYDROCODONE/APAP 10/325MG 1 EA TABLET GT SCH ×2 (13:20→21:00)
[2017-08-05] MEDS: HYDROGEL DRESSING 90 GM TUBE TP SCH ×2 (14:20→21:00)
[2017-08-05] MEDS: NYSTATIN/TRIAMCIN CREAM 15 GM TUBE TP SCH ×8 (14:20→21:00)
[2017-08-05] MEDS: ZINC OXIDE 30 GM TUBE TP SCH ×2 (14:20→21:00)
[2017-08-05 20:19] VITALS: BP 145/72
[2017-08-05] MEDS: MULTIVIT, IRON, MIN NO. 8, FA 1 TAB GT SCH (21:00)
[2017-08-05] MEDS: POLYETHYLENE GLYCOL 3350 17 GM POWD.PACK GT SCH (21:00)
[2017-08-05] MEDS: ZINC SULFATE 220 MG CAPSULE PO SCH (21:00)
[2017-08-05] MEDS: CRANBERRY GT SCH (21:00)
[2017-08-05] MEDS: ENOXAPARIN SODIUM 40 MG/0.4 ML DISP.SYRIN SQ SCH (21:00)
[2017-08-05] MEDS: ATORVASTATIN CALCIUM 20MG TABLET GT SCH (22:00)
[2017-08-06 07:46] VITALS: BP 136/81
[2017-08-06] MEDS: ACIDOPHILUS/BULGARICUS 1 EACH TAB.CHEW GT SCH ×3 (09:35→17:51)
[2017-08-06] MEDS: ESCITALOPRAM OXALATE (10 MG) 10 MG TABLET GT SCH (09:35)
[2017-08-06] MEDS: BACLOFEN (10 MG) 10 MG TABLET GT SCH ×4 (09:35→21:45)
[2017-08-06] MEDS: METOPROLOL TARTRATE 25 MG TABLET GT SCH ×2 (09:36→17:52)
[2017-08-06] MEDS: PROSOURCE / PROSTAT (PYXIS) 30 ML UDC GT SCH ×3 (09:37→17:52)
[2017-08-06] MEDS: CLOPIDOGREL BISULFATE 75 MG TABLET GT SCH (09:37)
[2017-08-06] MEDS: CALCIUM CARBONATE 500 MG TAB.CHEW GT SCH ×3 (09:37→17:52)
[2017-08-06] MEDS: METHADONE HCL 10 MG TABLET GT SCH (09:37)
[2017-08-06] MEDS: ASCORBIC ACID 500 MG TABLET GT SCH ×2 (09:37→17:52)
[2017-08-06] MEDS: GABAPENTIN 300 MG CAPSULE GT SCH ×3 (09:37→17:52)
[2017-08-06] MEDS: CALCITRIOL 0.25 MCG CAPSULE PO SCH (09:37)
[2017-08-06] MEDS: FAMOTIDINE (20 MG) 20 MG TABLET GT SCH ×2 (09:37→21:45)
[2017-08-06] MEDS: MINERAL OIL/PETROL OINT 396 GM JAR TP SCH ×2 (09:38→21:45)
[2017-08-06] MEDS: HYDROCODONE/APAP 10/325MG 1 EA TABLET GT SCH ×2 (12:30→21:00)
[2017-08-06] MEDS: HYDROGEL DRESSING 90 GM TUBE TP SCH ×2 (13:30→21:45)
[2017-08-06] MEDS: NYSTATIN/TRIAMCIN CREAM 15 GM TUBE TP SCH ×8 (13:30→21:46)
[2017-08-06] MEDS: ZINC OXIDE 30 GM TUBE TP SCH ×2 (13:30→21:46)
[2017-08-06 20:30] VITALS: BP 99/57
[2017-08-06] MEDS: MULTIVIT, IRON, MIN NO. 8, FA 1 TAB GT SCH (21:45)
[2017-08-06] MEDS: ZINC SULFATE 220 MG CAPSULE PO SCH (21:45)
[2017-08-06] MEDS: ENOXAPARIN SODIUM 40 MG/0.4 ML DISP.SYRIN SQ SCH (21:45)
[2017-08-06] MEDS: CRANBERRY GT SCH (21:45)
[2017-08-06] MEDS: POLYETHYLENE GLYCOL 3350 17 GM POWD.PACK GT SCH (21:45)
[2017-08-06] MEDS: ATORVASTATIN CALCIUM 20MG TABLET GT SCH (21:46)
[2017-08-07] MEDS: MAGNESIUM HYDROXIDE 30 ML UDC GT PRN (06:51)
[2017-08-07 07:39] VITALS: BP 127/72
[2017-08-07] MEDS: HYDROCODONE/APAP 10/325MG 1 EA TABLET GT SCH ×2 (09:00→20:50)
[2017-08-07] MEDS: METHADONE HCL 10 MG TABLET GT SCH (09:15)
[2017-08-07] MEDS: CLOPIDOGREL BISULFATE 75 MG TABLET GT SCH (09:16)
[2017-08-07] MEDS: BACLOFEN (10 MG) 10 MG TABLET GT SCH ×4 (09:16→20:50)
[2017-08-07] MEDS: ESCITALOPRAM OXALATE (10 MG) 10 MG TABLET GT SCH (09:16)
[2017-08-07] MEDS: ASCORBIC ACID 500 MG TABLET GT SCH ×2 (09:16→16:47)
[2017-08-07] MEDS: GABAPENTIN 300 MG CAPSULE GT SCH ×3 (09:16→16:47)
[2017-08-07] MEDS: CALCIUM CARBONATE 500 MG TAB.CHEW GT SCH ×3 (09:16→16:47)
[2017-08-07] MEDS: PROSOURCE / PROSTAT (PYXIS) 30 ML UDC GT SCH ×3 (09:16→16:47)
[2017-08-07] MEDS: ACIDOPHILUS/BULGARICUS 1 EACH TAB.CHEW GT SCH ×3 (09:16→16:46)
[2017-08-07] MEDS: CALCITRIOL 0.25 MCG CAPSULE PO SCH (09:16)
[2017-08-07] MEDS: FAMOTIDINE (20 MG) 20 MG TABLET GT SCH ×2 (09:16→20:50)
[2017-08-07] MEDS: METOPROLOL TARTRATE 25 MG TABLET GT SCH ×2 (09:24→16:46)
[2017-08-07] MEDS: APAP GT PRN (11:36)
[2017-08-07] MEDS: OXYCODONE GT PRN (11:36)
[2017-08-07] MEDS: HYDROGEL DRESSING 90 GM TUBE TP SCH (12:36)
[2017-08-07] MEDS: NYSTATIN/TRIAMCIN CREAM 15 GM TUBE TP SCH ×4 (12:36)
[2017-08-07] MEDS: MINERAL OIL/PETROL OINT 396 GM JAR TP SCH ×2 (12:36→21:25)
[2017-08-07] MEDS: ZINC OXIDE 30 GM TUBE TP SCH (12:36)
--- NOTE | 2017-08-07 12:45 | NUR ---
Jackman catheter changed FR #16/10ml due to dislodged, procedure tolerated well, no bleeding noted. no c/co pain or any discomfort noted. will endorsed to oncoming shift.
--- NOTE | 2017-08-07 19:05 | NUR ---
Pt's Hollister 10/325 mg not covered by insurance, [facility] pharmacy working on prior authorization. Notified [facility] pharmacy.
[2017-08-07 20:26] VITALS: BP 97/51
[2017-08-07] MEDS: ZINC SULFATE 220 MG CAPSULE PO SCH (20:50)
[2017-08-07] MEDS: MULTIVIT, IRON, MIN NO. 8, FA 1 TAB GT SCH (20:50)
[2017-08-07] MEDS: POLYETHYLENE GLYCOL 3350 17 GM POWD.PACK GT SCH (20:50)
[2017-08-07] MEDS: CRANBERRY GT SCH (20:50)
[2017-08-07] MEDS: ENOXAPARIN SODIUM 40 MG/0.4 ML DISP.SYRIN SQ SCH (20:51)
[2017-08-07] MEDS: ATORVASTATIN CALCIUM 20MG TABLET GT SCH (21:25)
[2017-08-08 08:15] VITALS: BP 138/81
[2017-08-08] MEDS: BACLOFEN (10 MG) 10 MG TABLET GT SCH ×4 (09:00→21:28)
[2017-08-08] MEDS: CLOPIDOGREL BISULFATE 75 MG TABLET GT SCH (09:00)
[2017-08-08] MEDS: FAMOTIDINE (20 MG) 20 MG TABLET GT SCH ×2 (09:00→21:28)
[2017-08-08] MEDS: PROSOURCE / PROSTAT (PYXIS) 30 ML UDC GT SCH ×3 (09:00→17:03)
[2017-08-08] MEDS: MINERAL OIL/PETROL OINT 396 GM JAR TP SCH ×2 (09:00→21:53)
[2017-08-08] MEDS: GABAPENTIN 300 MG CAPSULE GT SCH ×3 (09:00→17:03)
[2017-08-08] MEDS: METOPROLOL TARTRATE 25 MG TABLET GT SCH ×2 (09:00→17:03)
[2017-08-08] MEDS: METHADONE HCL 10 MG TABLET GT SCH (09:00)
[2017-08-08] MEDS: ESCITALOPRAM OXALATE (10 MG) 10 MG TABLET GT SCH (09:00)
[2017-08-08] MEDS: ASCORBIC ACID 500 MG TABLET GT SCH ×2 (09:00→17:03)
[2017-08-08] MEDS: CALCITRIOL 0.25 MCG CAPSULE PO SCH (09:00)
[2017-08-08] MEDS: ACIDOPHILUS/BULGARICUS 1 EACH TAB.CHEW GT SCH ×3 (09:00→17:02)
[2017-08-08] MEDS: CALCIUM CARBONATE 500 MG TAB.CHEW GT SCH ×3 (09:00→17:03)
--- NOTE | 2017-08-08 10:16 | NUR ---
Spoke with [facility] pharmacist Penny regarding Whiteside. She said it is now covered by the pt's insurance. Received 90 tablets of Whiteside 10/325 mg last night.
[2017-08-08] MEDS: HYDROCODONE/APAP 10/325MG 1 EA TABLET GT SCH ×2 (12:47→21:28)
[2017-08-08 20:37] VITALS: BP 103/66
[2017-08-08] MEDS: POLYETHYLENE GLYCOL 3350 17 GM POWD.PACK GT SCH (21:28)
[2017-08-08] MEDS: ZINC SULFATE 220 MG CAPSULE PO SCH (21:28)
[2017-08-08] MEDS: CRANBERRY GT SCH (21:28)
[2017-08-08] MEDS: MULTIVIT, IRON, MIN NO. 8, FA 1 TAB GT SCH (21:28)
[2017-08-08] MEDS: ENOXAPARIN SODIUM 40 MG/0.4 ML DISP.SYRIN SQ SCH (21:29)
[2017-08-08] MEDS: ATORVASTATIN CALCIUM 20MG TABLET GT SCH (21:29)
[2017-08-09 07:57] VITALS: BP 107/65
[2017-08-09] MEDS: ESCITALOPRAM OXALATE (10 MG) 10 MG TABLET GT SCH (08:53)
[2017-08-09] MEDS: ACIDOPHILUS/BULGARICUS 1 EACH TAB.CHEW GT SCH ×3 (08:53→17:23)
[2017-08-09] MEDS: BACLOFEN (10 MG) 10 MG TABLET GT SCH ×4 (08:54→21:21)
[2017-08-09] MEDS: FAMOTIDINE (20 MG) 20 MG TABLET GT SCH ×2 (08:54→21:22)
[2017-08-09] MEDS: PROSOURCE / PROSTAT (PYXIS) 30 ML UDC GT SCH ×3 (08:54→17:25)
[2017-08-09] MEDS: GABAPENTIN 300 MG CAPSULE GT SCH ×3 (08:54→17:25)
[2017-08-09] MEDS: CLOPIDOGREL BISULFATE 75 MG TABLET GT SCH (08:54)
[2017-08-09] MEDS: METOPROLOL TARTRATE 25 MG TABLET GT SCH ×2 (08:54→17:00)
[2017-08-09] MEDS: METHADONE HCL 10 MG TABLET GT SCH (08:54)
[2017-08-09] MEDS: ASCORBIC ACID 500 MG TABLET GT SCH ×2 (08:55→17:25)
[2017-08-09] MEDS: CALCITRIOL 0.25 MCG CAPSULE PO SCH (08:55)
[2017-08-09] MEDS: CALCIUM CARBONATE 500 MG TAB.CHEW GT SCH ×3 (08:55→17:25)
[2017-08-09] MEDS: HYDROCODONE/APAP 10/325MG 1 EA TABLET GT SCH ×2 (13:30→21:22)
[2017-08-09] MEDS: MINERAL OIL/PETROL OINT 396 GM JAR TP SCH ×2 (14:00→21:22)
--- NOTE | 2017-08-09 18:09 | NUR ---
Notified Dr. Asher Curiel that patient looks weak, not eating well, ate 75% breakfast, 40% lunch, 25% for dinner, patient is not his usual self. V/S 115/71, 74, 99.7, 95% R 16. New order for CMP, CBC and UA. Spoke with Vilma, sister in law and notified her of patient's condition and new order. Appreciated the call. Order carried out.
[2017-08-09 19:43] LABS: ALBUMIN 2.1 g/dL (3.4-5.0); BILIRUBIN,TOTAL 0.2 mg/dL (0.2-1.0); CALCIUM, SERUM 8.8 mg/dL (8.5-10.1); CREATININE 0.9 mg/dL (0.6-1.3); POTASSIUM 4.5 mmol/L (3.5-5.1); TOTAL PROTEIN, SERUM 8.4 g/dL (6.4-8.2)
[2017-08-09 20:08] LABS: APPEARANCE,URINE CLOUDY (CLEAR); COLOR,URINE YELLOW (YELLOW); LEUKOCYTE ESTERASE ,URINE 2+ (NEGATIVE); NITRITE, URINE NEGATIVE (NEGATIVE); PROTEIN,URINE 2+ mg/dl (NEGATIVE); UROBILINOGEN,URINE 0.2 EU/dL (0.2)
[2017-08-09 20:09] LABS: BLOOD, URINE TRACE Ery/uL (NEGATIVE); KETONES,URINE NEGATIVE (NEGATIVE); PH,URINE 8.5 (5.0-8.0)
[2017-08-09 20:10] LABS: BILIRUBIN,URINE NEGATIVE (NEGATIVE); UGLUCOSE NEGATIVE (NEGATIVE)
[2017-08-09 20:13] LABS: BACTERIA,URINE Many /HPF (None Seen); SQUAMOUS EPITHELIAL CELL,UR Few /HPF (None Seen); WBC,URINE 21-50 /HPF (0-3)
--- NOTE | 2017-08-09 21:00 | NUR ---
Pt vitals BP 115/72 HR 78,Temp 98.4,sleepy but arousable.WBC 9.9,BUN 32,urinalysis done and it's cloudy and WBC present,pending result for urine culture.Will continue to monitor.
[2017-08-09] MEDS: POLYETHYLENE GLYCOL 3350 17 GM POWD.PACK GT SCH (21:21)
[2017-08-09] MEDS: CRANBERRY GT SCH (21:21)
[2017-08-09] MEDS: ATORVASTATIN CALCIUM 20MG TABLET GT SCH (21:22)
[2017-08-09] MEDS: ZINC SULFATE 220 MG CAPSULE PO SCH (21:22)
[2017-08-09] MEDS: MULTIVIT, IRON, MIN NO. 8, FA 1 TAB GT SCH (21:22)
[2017-08-09] MEDS: ENOXAPARIN SODIUM 40 MG/0.4 ML DISP.SYRIN SQ SCH (21:22)
[2017-08-09 21:26] LABS: BASOPHILS % (AUTO) 0.3 % (0.0-2.0); EOSINOPHILS % (AUTO) 0.7 % (0.0-6.0); HEMATOCRIT 28 % (39-51); HEMOGLOBIN 8.5 g/dL (13.5-17.5); LYMPHOCYTES # (AUTO) 1.2 /CMM (0.8-4.8); LYMPHOCYTES % (AUTO) 11.8 % (20.0-44.0); MEAN CORPUSCULAR HEMOGLOBIN 26 PG (26.0-33.0); MEAN CORPUSCULAR HGB CONC 31 g/dl (31.0-36.0); MEAN CORPUSCULAR VOLUME 83 fL (80-96); MONOCYTES # (AUTO) 1.1 /CMM (0.1-1.30); MONOCYTES % (AUTO) 10.6 % (2.0-12.0); NEUTROPHILS # (AUTO) 7.6 /CMM (1.8-8.9); NEUTROPHILS % (AUTO) 76.6 % (43.0-81.0); PLATELET COUNT (AUTO) 409 /CMM (150-450); RDW COEFFICIENT OF VARIATION 18.5 (11.5-15.0); RED BLOOD CELL COUNT(AUTO) 3.31 MIL/uL (4.5-6.0); WHITE BLOOD COUNT (AUTO) 9.9 K/uL (4.3-11.0)
[2017-08-09 21:36] VITALS: BP 115/72
[2017-08-10 07:55] VITALS: BP 121/65
[2017-08-10] MEDS: BACLOFEN (10 MG) 10 MG TABLET GT SCH ×4 (09:30→21:17)
[2017-08-10] MEDS: ACIDOPHILUS/BULGARICUS 1 EACH TAB.CHEW GT SCH ×3 (09:30→17:21)
[2017-08-10] MEDS: METHADONE HCL 10 MG TABLET GT SCH (09:30)
[2017-08-10] MEDS: FAMOTIDINE (20 MG) 20 MG TABLET GT SCH ×2 (09:30→21:17)
[2017-08-10] MEDS: GABAPENTIN 300 MG CAPSULE GT SCH ×3 (09:30→17:21)
[2017-08-10] MEDS: PROSOURCE / PROSTAT (PYXIS) 30 ML UDC GT SCH ×3 (09:30→17:21)
[2017-08-10] MEDS: CLOPIDOGREL BISULFATE 75 MG TABLET GT SCH (09:30)
[2017-08-10] MEDS: ESCITALOPRAM OXALATE (10 MG) 10 MG TABLET GT SCH (09:30)
[2017-08-10] MEDS: METOPROLOL TARTRATE 25 MG TABLET GT SCH ×2 (09:30→17:00)
[2017-08-10] MEDS: CALCITRIOL 0.25 MCG CAPSULE PO SCH (09:31)
[2017-08-10] MEDS: ASCORBIC ACID 500 MG TABLET GT SCH ×2 (09:31→17:21)
[2017-08-10] MEDS: CALCIUM CARBONATE 500 MG TAB.CHEW GT SCH ×3 (09:31→17:21)
[2017-08-10] MEDS: HYDROCODONE/APAP 10/325MG 1 EA TABLET GT SCH ×2 (10:00→22:00)
[2017-08-10] MEDS: HYDROGEL DRESSING 90 GM TUBE TP SCH ×2 (11:00→22:35)
[2017-08-10] MEDS: ZINC OXIDE 30 GM TUBE TP SCH ×2 (11:00→22:35)
[2017-08-10] MEDS: NYSTATIN/TRIAMCIN 15 GM CREAM 15 GM TUBE TP SCH ×2 (11:00→22:35)
[2017-08-10] MEDS: Z GUARD REMEDY 4 OZ OINT TP SCH ×4 (11:00→22:35)
[2017-08-10] MEDS: MINERAL OIL/PETROL OINT 396 GM JAR TP SCH ×2 (11:00→21:17)
[2017-08-10] MEDS: NYSTATIN/TRIAMCIN CREAM 15 GM TUBE TP SCH ×6 (11:00→22:35)
--- NOTE | 2017-08-10 13:40 | NUR ---
SW met with the resident as complaints coordinator stated that resident wants to call his iwprpy-hc-chj Vilma. SW spoke to resident however resident was not able to communicate with SW. Resident kept repeating the same words and often licked his lips as if his mouth was dry. SW offered him water but resident stated he did not want any. He noted that he needs some food items but continually repeated the word "food" or made quacking noises.SW noted that that she would come back at a later time to speak with him. Informed charge nurse of resident's difficulty speaking with social work manager.
--- NOTE | 2017-08-10 14:55 | NUR ---
Notified Dr. Curiel that pt appears weak, not eating well, and repeats the same words when he talks. Relayed CBC, CMP, UA results to him. No new order. He said to monitor pt.
--- NOTE | 2017-08-10 17:23 | NUR ---
Notified program checker Cheyenne that pt is not eating well/refusing meals. Dr. Curiel aware. Received order to give Ensure 1 bottle po TID, Ensure may be given via GT if pt refuses to eat meals. Pt refused dinner but drank the bottle of Ensure.
[2017-08-10] MEDS: CRANBERRY GT SCH (21:16)
[2017-08-10] MEDS: ATORVASTATIN CALCIUM 20MG TABLET GT SCH (21:17)
[2017-08-10] MEDS: ZINC SULFATE 220 MG CAPSULE PO SCH (21:17)
[2017-08-10] MEDS: MULTIVIT, IRON, MIN NO. 8, FA 1 TAB GT SCH (21:17)
[2017-08-10] MEDS: POLYETHYLENE GLYCOL 3350 17 GM POWD.PACK GT SCH (21:17)
[2017-08-10] MEDS: ENOXAPARIN SODIUM 40 MG/0.4 ML DISP.SYRIN SQ SCH (21:17)
[2017-08-10 22:24] VITALS: BP 138/75
[2017-08-11] MEDS: MAGNESIUM HYDROXIDE 30 ML UDC GT PRN ×2 (06:12→19:01)
--- NOTE | 2017-08-11 06:29 | NUR ---
PT looks weak and seems confused,repeating words when you talked to him.No respiratory distress,vitals stable and afebrile.Will continue to monitor.
[2017-08-11 07:40] VITALS: BP 109/75
[2017-08-11] MEDS: METOPROLOL TARTRATE 25 MG TABLET GT SCH ×2 (09:29→17:44)
[2017-08-11] MEDS: ACIDOPHILUS/BULGARICUS 1 EACH TAB.CHEW GT SCH ×3 (09:29→17:35)
[2017-08-11] MEDS: BACLOFEN (10 MG) 10 MG TABLET GT SCH ×4 (09:29→21:34)
[2017-08-11] MEDS: ESCITALOPRAM OXALATE (10 MG) 10 MG TABLET GT SCH (09:29)
[2017-08-11] MEDS: METHADONE HCL 10 MG TABLET GT SCH (09:30)
[2017-08-11] MEDS: CALCITRIOL 0.25 MCG CAPSULE PO SCH (09:30)
[2017-08-11] MEDS: PROSOURCE / PROSTAT (PYXIS) 30 ML UDC GT SCH ×3 (09:30→17:45)
[2017-08-11] MEDS: CALCIUM CARBONATE 500 MG TAB.CHEW GT SCH ×3 (09:30→17:45)
[2017-08-11] MEDS: ASCORBIC ACID 500 MG TABLET GT SCH ×2 (09:30→17:45)
[2017-08-11] MEDS: FAMOTIDINE (20 MG) 20 MG TABLET GT SCH ×2 (09:30→21:34)
[2017-08-11] MEDS: GABAPENTIN 300 MG CAPSULE GT SCH ×3 (09:30→17:45)
[2017-08-11] MEDS: ENSURE ENLIVE CHOC 237 ML CAN PO SCH ×3 (09:30→17:45)
[2017-08-11] MEDS: CLOPIDOGREL BISULFATE 75 MG TABLET GT SCH (09:30)
[2017-08-11] MEDS: HYDROCODONE/APAP 10/325MG 1 EA TABLET GT SCH ×2 (10:00→22:00)
--- NOTE | 2017-08-11 10:53 | NUR ---
NOTIFIED DR RENÉ PATEL REGARDING PATIENT NOTED NOT IN HIS USUAL SELF, NO APPETITE, DID NOT EAT BREAKFAST. MD TO REASSESS PATIENT.
[2017-08-11] MEDS: Z GUARD REMEDY 4 OZ OINT TP SCH ×4 (11:00→22:30)
[2017-08-11] MEDS: ZINC OXIDE 30 GM TUBE TP SCH ×2 (11:00→22:30)
[2017-08-11] MEDS: HYDROGEL DRESSING 90 GM TUBE TP SCH ×2 (11:00→22:30)
[2017-08-11] MEDS: NYSTATIN/TRIAMCIN 15 GM CREAM 15 GM TUBE TP SCH ×2 (11:00→22:30)
[2017-08-11] MEDS: MINERAL OIL/PETROL OINT 396 GM JAR TP SCH ×2 (11:00→21:35)
[2017-08-11] MEDS: NYSTATIN/TRIAMCIN CREAM 15 GM TUBE TP SCH ×6 (11:00→22:30)
--- NOTE | 2017-08-11 14:00 | NUR ---
SISTER IN LAW KEN CAME TO VISIT PATIENT BROUGHT FOOD FOR PATIENT, ATE WHOLE BURRITO AND GUACAMOLE.
--- NOTE | 2017-08-11 18:10 | NUR ---
Diana Pittman NP seen and reviewed lab and culture result with new order for IV ATB Merrem and chest X ray in AM. Vilma, patient's sister in law notified of new order. Appreciated the call.
[2017-08-11] MEDS: MEROPENEM 500 MG in IV NS 0.9% 50 ML IV SCH (21:13)
[2017-08-11] MEDS: MULTIVIT, IRON, MIN NO. 8, FA 1 TAB GT SCH (21:34)
[2017-08-11] MEDS: ZINC SULFATE 220 MG CAPSULE PO SCH (21:34)
[2017-08-11] MEDS: CRANBERRY GT SCH (21:34)
[2017-08-11] MEDS: POLYETHYLENE GLYCOL 3350 17 GM POWD.PACK GT SCH (21:34)
[2017-08-11] MEDS: ENOXAPARIN SODIUM 40 MG/0.4 ML DISP.SYRIN SQ SCH (21:35)
[2017-08-11] MEDS: ATORVASTATIN CALCIUM 20MG TABLET GT SCH (21:35)
[2017-08-11 22:13] VITALS: BP 125/75
[2017-08-12] MEDS: MEROPENEM 500 MG in IV NS 0.9% 50 ML IV SCH ×3 (05:00→21:00)
[2017-08-12] MEDS: ENSURE ENLIVE CHOC 237 ML CAN PO SCH ×3 (09:00→17:17)
[2017-08-12] MEDS: METOPROLOL TARTRATE 25 MG TABLET GT SCH ×2 (09:00→17:16)
[2017-08-12] MEDS: CALCIUM CARBONATE 500 MG TAB.CHEW GT SCH ×3 (09:00→17:16)
[2017-08-12] MEDS: METHADONE HCL 10 MG TABLET GT SCH (09:00)
[2017-08-12] MEDS: ESCITALOPRAM OXALATE (10 MG) 10 MG TABLET GT SCH (09:00)
[2017-08-12] MEDS: ACIDOPHILUS/BULGARICUS 1 EACH TAB.CHEW GT SCH ×3 (09:00→17:16)
[2017-08-12] MEDS: GABAPENTIN 300 MG CAPSULE GT SCH ×3 (09:00→17:16)
[2017-08-12] MEDS: CLOPIDOGREL BISULFATE 75 MG TABLET GT SCH (09:00)
[2017-08-12] MEDS: FAMOTIDINE (20 MG) 20 MG TABLET GT SCH ×2 (09:00→20:41)
[2017-08-12] MEDS: PROSOURCE / PROSTAT (PYXIS) 30 ML UDC GT SCH ×3 (09:00→17:16)
[2017-08-12] MEDS: CALCITRIOL 0.25 MCG CAPSULE PO SCH (09:00)
[2017-08-12] MEDS: ASCORBIC ACID 500 MG TABLET GT SCH ×2 (09:00→17:17)
[2017-08-12] MEDS: BACLOFEN (10 MG) 10 MG TABLET GT SCH ×4 (09:00→20:41)
--- NOTE | 2017-08-12 12:54 | NUR ---
Notified CARLI Ortiz of Chest Xray result done today. NNO given. Patient currently on Merrem IV ATB, no adverse reaction noted.
[2017-08-12 13:16] VITALS: BP 131/76
[2017-08-12] MEDS: HYDROCODONE/APAP 10/325MG 1 EA TABLET GT SCH ×2 (13:24→21:00)
[2017-08-12] MEDS: MINERAL OIL/PETROL OINT 396 GM JAR TP SCH ×2 (14:30→20:43)
[2017-08-12] MEDS: Z GUARD REMEDY 4 OZ OINT TP SCH ×4 (14:30→20:43)
[2017-08-12] MEDS: NYSTATIN/TRIAMCIN 15 GM CREAM 15 GM TUBE TP SCH ×2 (14:30→20:43)
[2017-08-12] MEDS: ZINC OXIDE 30 GM TUBE TP SCH ×2 (14:30→20:44)
[2017-08-12] MEDS: HYDROGEL DRESSING 90 GM TUBE TP SCH ×2 (14:30→20:43)
[2017-08-12] MEDS: NYSTATIN/TRIAMCIN CREAM 15 GM TUBE TP SCH ×6 (14:30→20:43)
[2017-08-12] MEDS: ALBUTEROL HALF STRENGTH 1.25 MG/3 ML VIAL.NEB NEB PRN (15:29)
[2017-08-12] MEDS: IPRATROPIUM NEB FS 0.5 MG/2.5 ML AMPUL.NEB NEB PRN (15:29)
[2017-08-12 19:54] VITALS: BP 121/68
[2017-08-12] MEDS: MULTIVIT, IRON, MIN NO. 8, FA 1 TAB GT SCH (20:41)
[2017-08-12] MEDS: POLYETHYLENE GLYCOL 3350 17 GM POWD.PACK GT SCH (20:41)
[2017-08-12] MEDS: CRANBERRY GT SCH (20:41)
[2017-08-12] MEDS: ZINC SULFATE 220 MG CAPSULE PO SCH (20:42)
[2017-08-12] MEDS: ENOXAPARIN SODIUM 40 MG/0.4 ML DISP.SYRIN SQ SCH (20:43)
[2017-08-12] MEDS: ATORVASTATIN CALCIUM 20MG TABLET GT SCH (22:18)
[2017-08-13] MEDS: MEROPENEM 500 MG in IV NS 0.9% 50 ML IV SCH ×3 (05:00→21:00)
[2017-08-13] MEDS: MAGNESIUM HYDROXIDE 30 ML UDC GT PRN (07:05)
[2017-08-13 07:32] VITALS: BP 147/78
[2017-08-13] MEDS: ENSURE ENLIVE CHOC 237 ML CAN PO SCH ×3 (09:00→16:50)
[2017-08-13] MEDS: ESCITALOPRAM OXALATE (10 MG) 10 MG TABLET GT SCH (09:19)
[2017-08-13] MEDS: BACLOFEN (10 MG) 10 MG TABLET GT SCH ×4 (09:19→21:40)
[2017-08-13] MEDS: ACIDOPHILUS/BULGARICUS 1 EACH TAB.CHEW GT SCH ×3 (09:19→16:49)
[2017-08-13] MEDS: METOPROLOL TARTRATE 25 MG TABLET GT SCH ×2 (09:19→16:49)
[2017-08-13] MEDS: ASCORBIC ACID 500 MG TABLET GT SCH ×2 (09:20→16:49)
[2017-08-13] MEDS: GABAPENTIN 300 MG CAPSULE GT SCH ×3 (09:20→16:49)
[2017-08-13] MEDS: FAMOTIDINE (20 MG) 20 MG TABLET GT SCH ×2 (09:20→21:41)
[2017-08-13] MEDS: CLOPIDOGREL BISULFATE 75 MG TABLET GT SCH (09:20)
[2017-08-13] MEDS: METHADONE HCL 10 MG TABLET GT SCH (09:20)
[2017-08-13] MEDS: CALCIUM CARBONATE 500 MG TAB.CHEW GT SCH ×3 (09:20→16:49)
[2017-08-13] MEDS: PROSOURCE / PROSTAT (PYXIS) 30 ML UDC GT SCH ×3 (09:20→16:49)
[2017-08-13] MEDS: HYDROCODONE/APAP 10/325MG 1 EA TABLET GT SCH ×2 (09:20→21:41)
[2017-08-13] MEDS: CALCITRIOL 0.25 MCG CAPSULE PO SCH (09:25)
[2017-08-13] MEDS: MINERAL OIL/PETROL OINT 396 GM JAR TP SCH ×2 (09:25→21:42)
[2017-08-13] MEDS: HYDROGEL DRESSING 90 GM TUBE TP SCH ×2 (09:26→21:42)
[2017-08-13] MEDS: NYSTATIN/TRIAMCIN CREAM 15 GM TUBE TP SCH ×6 (09:26→21:42)
[2017-08-13] MEDS: Z GUARD REMEDY 4 OZ OINT TP SCH ×4 (09:27→21:42)
[2017-08-13] MEDS: NYSTATIN/TRIAMCIN 15 GM CREAM 15 GM TUBE TP SCH ×2 (09:27→21:42)
[2017-08-13] MEDS: ZINC OXIDE 30 GM TUBE TP SCH ×2 (09:28→21:42)
[2017-08-13 20:05] VITALS: BP 129/74
[2017-08-13] MEDS: CRANBERRY GT SCH (21:40)
[2017-08-13] MEDS: POLYETHYLENE GLYCOL 3350 17 GM POWD.PACK GT SCH (21:40)
[2017-08-13] MEDS: MULTIVIT, IRON, MIN NO. 8, FA 1 TAB GT SCH (21:41)
[2017-08-13] MEDS: ZINC SULFATE 220 MG CAPSULE PO SCH (21:41)
[2017-08-13] MEDS: ENOXAPARIN SODIUM 40 MG/0.4 ML DISP.SYRIN SQ SCH (21:41)
[2017-08-13] MEDS: ATORVASTATIN CALCIUM 20MG TABLET GT SCH (21:42)
[2017-08-14] MEDS: MEROPENEM 500 MG in IV NS 0.9% 50 ML IV SCH ×3 (05:00→21:00)
[2017-08-14 07:04] LABS: BASOPHILS % (AUTO) 0.2 % (0.0-2.0); EOSINOPHILS % (AUTO) 1.4 % (0.0-6.0); HEMATOCRIT 28 % (39-51); HEMOGLOBIN 8.7 g/dL (13.5-17.5); LYMPHOCYTES # (AUTO) 1.7 /CMM (0.8-4.8); LYMPHOCYTES % (AUTO) 15.4 % (20.0-44.0); MEAN CORPUSCULAR HEMOGLOBIN 26 PG (26.0-33.0); MEAN CORPUSCULAR HGB CONC 31 g/dl (31.0-36.0); MEAN CORPUSCULAR VOLUME 83 fL (80-96); MONOCYTES # (AUTO) 1.1 /CMM (0.1-1.30); MONOCYTES % (AUTO) 9.9 % (2.0-12.0); NEUTROPHILS # (AUTO) 8.2 /CMM (1.8-8.9); NEUTROPHILS % (AUTO) 73.1 % (43.0-81.0); PLATELET COUNT (AUTO) 499 /CMM (150-450); WHITE BLOOD COUNT (AUTO) 11.2 K/uL (4.3-11.0)
[2017-08-14 07:52] VITALS: BP 133/80
[2017-08-14] MEDS: NYSTATIN/TRIAMCIN 15 GM CREAM 15 GM TUBE TP SCH ×2 (09:00→21:39)
[2017-08-14] MEDS: MINERAL OIL/PETROL OINT 396 GM JAR TP SCH ×2 (09:00→21:37)
[2017-08-14] MEDS: NYSTATIN/TRIAMCIN CREAM 15 GM TUBE TP SCH ×6 (09:00→21:37)
[2017-08-14] MEDS: HYDROGEL DRESSING 90 GM TUBE TP SCH ×2 (09:00→21:37)
[2017-08-14] MEDS: ZINC OXIDE 30 GM TUBE TP SCH ×2 (09:00→21:39)
[2017-08-14] MEDS: HYDROCODONE/APAP 10/325MG 1 EA TABLET GT SCH ×2 (09:00→21:36)
[2017-08-14] MEDS: ENSURE ENLIVE CHOC 237 ML CAN PO SCH ×3 (09:00→17:00)
[2017-08-14] MEDS: Z GUARD REMEDY 4 OZ OINT TP SCH ×4 (09:00→21:39)
[2017-08-14] MEDS: ACIDOPHILUS/BULGARICUS 1 EACH TAB.CHEW GT SCH ×3 (09:21→17:00)
[2017-08-14] MEDS: ESCITALOPRAM OXALATE (10 MG) 10 MG TABLET GT SCH (09:22)
[2017-08-14] MEDS: BACLOFEN (10 MG) 10 MG TABLET GT SCH ×4 (09:23→21:36)
[2017-08-14] MEDS: METOPROLOL TARTRATE 25 MG TABLET GT SCH ×2 (09:23→17:00)
[2017-08-14] MEDS: GABAPENTIN 300 MG CAPSULE GT SCH ×3 (09:25→17:00)
[2017-08-14] MEDS: FAMOTIDINE (20 MG) 20 MG TABLET GT SCH ×2 (09:25→21:36)
[2017-08-14] MEDS: METHADONE HCL 10 MG TABLET GT SCH (09:25)
[2017-08-14] MEDS: CALCIUM CARBONATE 500 MG TAB.CHEW GT SCH ×3 (09:26→17:00)
[2017-08-14] MEDS: CLOPIDOGREL BISULFATE 75 MG TABLET GT SCH (09:26)
[2017-08-14] MEDS: PROSOURCE / PROSTAT (PYXIS) 30 ML UDC GT SCH ×3 (09:26→17:00)
[2017-08-14] MEDS: ASCORBIC ACID 500 MG TABLET GT SCH ×2 (09:26→17:00)
[2017-08-14] MEDS: CALCITRIOL 0.25 MCG CAPSULE PO SCH (09:27)
[2017-08-14 19:29] VITALS: BP 135/78
[2017-08-14] MEDS: MULTIVIT, IRON, MIN NO. 8, FA 1 TAB GT SCH (21:36)
[2017-08-14] MEDS: ZINC SULFATE 220 MG CAPSULE PO SCH (21:36)
[2017-08-14] MEDS: CRANBERRY GT SCH (21:36)
[2017-08-14] MEDS: POLYETHYLENE GLYCOL 3350 17 GM POWD.PACK GT SCH (21:36)
[2017-08-14] MEDS: ENOXAPARIN SODIUM 40 MG/0.4 ML DISP.SYRIN SQ SCH (21:37)
[2017-08-14] MEDS: ATORVASTATIN CALCIUM 20MG TABLET GT SCH (21:39)
[2017-08-15] MEDS: MEROPENEM 500 MG in IV NS 0.9% 50 ML IV SCH ×3 (05:00→21:00)
[2017-08-15 07:45] VITALS: BP 97/68
[2017-08-15] MEDS: HYDROGEL DRESSING 90 GM TUBE TP SCH ×2 (09:00→21:19)
[2017-08-15] MEDS: NYSTATIN/TRIAMCIN CREAM 15 GM TUBE TP SCH ×6 (09:00→21:21)
[2017-08-15] MEDS: MINERAL OIL/PETROL OINT 396 GM JAR TP SCH ×2 (09:00→21:19)
[2017-08-15] MEDS: Z GUARD REMEDY 4 OZ OINT TP SCH ×4 (09:00→21:21)
[2017-08-15] MEDS: NYSTATIN/TRIAMCIN 15 GM CREAM 15 GM TUBE TP SCH ×2 (09:00→21:21)
[2017-08-15] MEDS: ENSURE ENLIVE CHOC 237 ML CAN PO SCH ×3 (09:00→16:51)
[2017-08-15] MEDS: ZINC OXIDE 30 GM TUBE TP SCH ×2 (09:00→21:21)
[2017-08-15] MEDS: BACLOFEN (10 MG) 10 MG TABLET GT SCH ×4 (09:01→21:18)
[2017-08-15] MEDS: ACIDOPHILUS/BULGARICUS 1 EACH TAB.CHEW GT SCH ×3 (09:01→16:50)
[2017-08-15] MEDS: METOPROLOL TARTRATE 25 MG TABLET GT SCH ×2 (09:01→16:50)
[2017-08-15] MEDS: ESCITALOPRAM OXALATE (10 MG) 10 MG TABLET GT SCH (09:01)
[2017-08-15] MEDS: PROSOURCE / PROSTAT (PYXIS) 30 ML UDC GT SCH ×3 (09:02→16:50)
[2017-08-15] MEDS: METHADONE HCL 10 MG TABLET GT SCH (09:02)
[2017-08-15] MEDS: ASCORBIC ACID 500 MG TABLET GT SCH ×2 (09:02→16:50)
[2017-08-15] MEDS: CLOPIDOGREL BISULFATE 75 MG TABLET GT SCH (09:02)
[2017-08-15] MEDS: HYDROCODONE/APAP 10/325MG 1 EA TABLET GT SCH ×2 (09:02→21:18)
[2017-08-15] MEDS: FAMOTIDINE (20 MG) 20 MG TABLET GT SCH ×2 (09:02→21:18)
[2017-08-15] MEDS: CALCIUM CARBONATE 500 MG TAB.CHEW GT SCH ×3 (09:02→16:50)
[2017-08-15] MEDS: CALCITRIOL 0.25 MCG CAPSULE PO SCH (09:02)
[2017-08-15] MEDS: GABAPENTIN 300 MG CAPSULE GT SCH ×3 (09:02→16:50)
[2017-08-15 19:31] VITALS: BP 98/60
[2017-08-15] MEDS: CRANBERRY GT SCH (21:18)
[2017-08-15] MEDS: ZINC SULFATE 220 MG CAPSULE PO SCH (21:18)
[2017-08-15] MEDS: POLYETHYLENE GLYCOL 3350 17 GM POWD.PACK GT SCH (21:18)
[2017-08-15] MEDS: MULTIVIT, IRON, MIN NO. 8, FA 1 TAB GT SCH (21:18)
[2017-08-15] MEDS: ENOXAPARIN SODIUM 40 MG/0.4 ML DISP.SYRIN SQ SCH (21:19)
[2017-08-15] MEDS: ATORVASTATIN CALCIUM 20MG TABLET GT SCH (21:21)
[2017-08-16] MEDS: METHADONE HCL 10 MG TABLET GT SCH (01:30)
[2017-08-16] MEDS: MEROPENEM 500 MG in IV NS 0.9% 50 ML IV SCH ×3 (05:00→21:07)
[2017-08-16 07:51] VITALS: BP 122/69
[2017-08-16] MEDS: ESCITALOPRAM OXALATE (10 MG) 10 MG TABLET GT SCH (09:00)
[2017-08-16] MEDS: Z GUARD REMEDY 4 OZ OINT TP SCH ×4 (09:00→23:00)
[2017-08-16] MEDS: NYSTATIN/TRIAMCIN 15 GM CREAM 15 GM TUBE TP SCH ×2 (09:00→23:00)
[2017-08-16] MEDS: HYDROGEL DRESSING 90 GM TUBE TP SCH ×2 (09:00→23:00)
[2017-08-16] MEDS: NYSTATIN/TRIAMCIN CREAM 15 GM TUBE TP SCH ×6 (09:00→23:00)
[2017-08-16] MEDS: ZINC OXIDE 30 GM TUBE TP SCH ×2 (09:00→23:00)
[2017-08-16] MEDS: MINERAL OIL/PETROL OINT 396 GM JAR TP SCH ×2 (09:00→21:57)
[2017-08-16] MEDS: BACLOFEN (10 MG) 10 MG TABLET GT SCH ×4 (09:33→21:55)
[2017-08-16] MEDS: ACIDOPHILUS/BULGARICUS 1 EACH TAB.CHEW GT SCH ×3 (09:33→17:47)
[2017-08-16] MEDS: METOPROLOL TARTRATE 25 MG TABLET GT SCH ×2 (09:34→17:50)
[2017-08-16] MEDS: GABAPENTIN 300 MG CAPSULE GT SCH ×3 (09:35→17:47)
[2017-08-16] MEDS: FAMOTIDINE (20 MG) 20 MG TABLET GT SCH ×2 (09:35→21:56)
[2017-08-16] MEDS: CLOPIDOGREL BISULFATE 75 MG TABLET GT SCH (09:36)
[2017-08-16] MEDS: PROSOURCE / PROSTAT (PYXIS) 30 ML UDC GT SCH ×3 (09:36→17:47)
[2017-08-16] MEDS: CALCIUM CARBONATE 500 MG TAB.CHEW GT SCH ×3 (09:37→17:47)
[2017-08-16] MEDS: CALCITRIOL 0.25 MCG CAPSULE PO SCH (09:37)
[2017-08-16] MEDS: ASCORBIC ACID 500 MG TABLET GT SCH ×2 (09:37→17:47)
[2017-08-16] MEDS: HYDROCODONE/APAP 10/325MG 1 EA TABLET GT SCH ×2 (09:38→22:20)
[2017-08-16] MEDS: ENSURE ENLIVE CHOC 237 ML CAN PO SCH ×3 (09:53→17:47)
[2017-08-16 20:02] VITALS: BP 105/67
[2017-08-16] MEDS: CRANBERRY GT SCH (21:55)
[2017-08-16] MEDS: ZINC SULFATE 220 MG CAPSULE PO SCH (21:56)
[2017-08-16] MEDS: MULTIVIT, IRON, MIN NO. 8, FA 1 TAB GT SCH (21:56)
[2017-08-16] MEDS: ENOXAPARIN SODIUM 40 MG/0.4 ML DISP.SYRIN SQ SCH (21:56)
[2017-08-16] MEDS: POLYETHYLENE GLYCOL 3350 17 GM POWD.PACK GT SCH (21:56)
[2017-08-16] MEDS: ATORVASTATIN CALCIUM 20MG TABLET GT SCH (21:57)
[2017-08-17] MEDS: MEROPENEM 500 MG in IV NS 0.9% 50 ML IV SCH (05:27)
[2017-08-17 07:28] VITALS: BP 126/76
--- NOTE | 2017-08-17 09:00 | NUR ---
RN notes Pt refused to take ensure enliv choclate 237 ml by mouth,offered x3 still refused.Given by [employer].
[2017-08-17] MEDS: ACIDOPHILUS/BULGARICUS 1 EACH TAB.CHEW GT SCH ×3 (09:10→16:22)
[2017-08-17] MEDS: METOPROLOL TARTRATE 25 MG TABLET GT SCH ×2 (09:11→16:22)
[2017-08-17] MEDS: ESCITALOPRAM OXALATE (10 MG) 10 MG TABLET GT SCH (09:11)
[2017-08-17] MEDS: BACLOFEN (10 MG) 10 MG TABLET GT SCH ×4 (09:11→21:00)
[2017-08-17] MEDS: GABAPENTIN 300 MG CAPSULE GT SCH ×3 (09:12→16:28)
[2017-08-17] MEDS: METHADONE HCL 10 MG TABLET GT SCH (09:12)
[2017-08-17] MEDS: CLOPIDOGREL BISULFATE 75 MG TABLET GT SCH (09:13)
[2017-08-17] MEDS: ENSURE ENLIVE CHOC 237 ML CAN PO SCH ×3 (09:13→18:00)
[2017-08-17] MEDS: PROSOURCE / PROSTAT (PYXIS) 30 ML UDC GT SCH ×3 (09:13→16:29)
[2017-08-17] MEDS: FAMOTIDINE (20 MG) 20 MG TABLET GT SCH ×2 (09:13→21:00)
[2017-08-17] MEDS: ASCORBIC ACID 500 MG TABLET GT SCH ×2 (09:13→16:29)
[2017-08-17] MEDS: CALCIUM CARBONATE 500 MG TAB.CHEW GT SCH ×3 (09:13→16:29)
[2017-08-17] MEDS: CALCITRIOL 0.25 MCG CAPSULE PO SCH (09:14)
[2017-08-17] MEDS: HYDROCODONE/APAP 10/325MG 1 EA TABLET GT SCH ×2 (11:00→21:00)
[2017-08-17] MEDS: NYSTATIN/TRIAMCIN 15 GM CREAM 15 GM TUBE TP SCH ×2 (11:30→21:00)
[2017-08-17] MEDS: HYDROGEL DRESSING 90 GM TUBE TP SCH ×2 (11:30→21:00)
[2017-08-17] MEDS: MINERAL OIL/PETROL OINT 396 GM JAR TP SCH ×2 (11:30→21:00)
[2017-08-17] MEDS: ZINC OXIDE 30 GM TUBE TP SCH ×2 (11:30→21:00)
[2017-08-17] MEDS: Z GUARD REMEDY 4 OZ OINT TP SCH ×4 (11:30→21:00)
[2017-08-17] MEDS: NYSTATIN/TRIAMCIN CREAM 15 GM TUBE TP SCH ×6 (11:30→21:00)
--- NOTE | 2017-08-17 15:26 | NUR ---
SW went to speak to the resident, as ijtfdr-to-ohb Vilma noted that she is coming tomorrow with food. Resident noted that he would like a chicken quesadilla with chips and salsa. Resident was able to communicate with SW but noted "I'm still dozing off and on." Questions at times needed to be repeated but resident was happy to see the social media developer.
--- NOTE | 2017-08-17 16:09 | NUR ---
Left a message CARLI Ortiz regarding sputum culture and sensitivities result showing Pseudomonas Aeruginosa. Also asked PERMASTONE INSTALLER for stop date. Patient currently on Merrem 500mg. Q8 hours. Awaiting for call back.
[2017-08-17 20:00] VITALS: BP 112/73
[2017-08-17] MEDS: MULTIVIT, IRON, MIN NO. 8, FA 1 TAB GT SCH (21:00)
[2017-08-17] MEDS: ZINC SULFATE 220 MG CAPSULE PO SCH (21:00)
[2017-08-17] MEDS: CEFEPIME 1 GM in IV D5W 50 ML IV SCH (21:00)
[2017-08-17] MEDS: POLYETHYLENE GLYCOL 3350 17 GM POWD.PACK GT SCH (21:00)
[2017-08-17] MEDS: ENOXAPARIN SODIUM 40 MG/0.4 ML DISP.SYRIN SQ SCH (21:00)
[2017-08-17] MEDS: CRANBERRY GT SCH (21:00)
--- NOTE | 2017-08-17 21:00 | NUR ---
STARTED CEFEPIME 1 GM IV Q 12 HOURS FOR RESPIRATORY INFECTION.NO ADVERSE REACTION,WILL CONTINUE TO MONITOR.
[2017-08-17] MEDS: ATORVASTATIN CALCIUM 20MG TABLET GT SCH (22:31)
[2017-08-18 07:37] VITALS: BP 136/77
[2017-08-18] MEDS: CEFEPIME 1 GM in IV D5W 50 ML IV SCH ×2 (09:00→21:00)
[2017-08-18] MEDS: BACLOFEN (10 MG) 10 MG TABLET GT SCH ×4 (09:15→21:42)
[2017-08-18] MEDS: ESCITALOPRAM OXALATE (10 MG) 10 MG TABLET GT SCH (09:15)
[2017-08-18] MEDS: ACIDOPHILUS/BULGARICUS 1 EACH TAB.CHEW GT SCH ×3 (09:15→17:00)
[2017-08-18] MEDS: METOPROLOL TARTRATE 25 MG TABLET GT SCH ×2 (09:16→17:00)
[2017-08-18] MEDS: METHADONE HCL 10 MG TABLET GT SCH (09:19)
[2017-08-18] MEDS: CLOPIDOGREL BISULFATE 75 MG TABLET GT SCH (09:21)
[2017-08-18] MEDS: MINERAL OIL/PETROL OINT 396 GM JAR TP SCH ×2 (09:21→21:43)
[2017-08-18] MEDS: GABAPENTIN 300 MG CAPSULE GT SCH ×3 (09:21→17:00)
[2017-08-18] MEDS: CALCITRIOL 0.25 MCG CAPSULE PO SCH (09:21)
[2017-08-18] MEDS: FAMOTIDINE (20 MG) 20 MG TABLET GT SCH ×2 (09:21→21:42)
[2017-08-18] MEDS: ENSURE ENLIVE CHOC 237 ML CAN PO SCH ×3 (09:21→17:00)
[2017-08-18] MEDS: ASCORBIC ACID 500 MG TABLET GT SCH ×2 (09:21→17:00)
[2017-08-18] MEDS: CALCIUM CARBONATE 500 MG TAB.CHEW GT SCH ×3 (09:21→17:00)
[2017-08-18] MEDS: PROSOURCE / PROSTAT (PYXIS) 30 ML UDC GT SCH ×3 (09:21→17:00)
[2017-08-18] MEDS: HYDROCODONE/APAP 10/325MG 1 EA TABLET GT SCH ×2 (15:00→23:00)
[2017-08-18] MEDS: NYSTATIN/TRIAMCIN 15 GM CREAM 15 GM TUBE TP SCH ×2 (16:00→23:30)
[2017-08-18] MEDS: NYSTATIN/TRIAMCIN CREAM 15 GM TUBE TP SCH ×6 (16:00→23:30)
[2017-08-18] MEDS: Z GUARD REMEDY 4 OZ OINT TP SCH ×4 (16:00→23:30)
[2017-08-18] MEDS: HYDROGEL DRESSING 90 GM TUBE TP SCH ×2 (16:00→23:30)
[2017-08-18] MEDS: ZINC OXIDE 30 GM TUBE TP SCH ×2 (16:00→23:30)
[2017-08-18 20:19] VITALS: BP 128/77
[2017-08-18] MEDS: CRANBERRY GT SCH (21:42)
[2017-08-18] MEDS: MULTIVIT, IRON, MIN NO. 8, FA 1 TAB GT SCH (21:42)
[2017-08-18] MEDS: ZINC SULFATE 220 MG CAPSULE PO SCH (21:42)
[2017-08-18] MEDS: POLYETHYLENE GLYCOL 3350 17 GM POWD.PACK GT SCH (21:42)
[2017-08-18] MEDS: ATORVASTATIN CALCIUM 20MG TABLET GT SCH (21:43)
[2017-08-18] MEDS: ENOXAPARIN SODIUM 40 MG/0.4 ML DISP.SYRIN SQ SCH (21:43)
[2017-08-19 07:44] VITALS: BP 130/83
[2017-08-19] MEDS: CALCITRIOL 0.25 MCG CAPSULE PO SCH (09:00)
[2017-08-19] MEDS: MINERAL OIL/PETROL OINT 396 GM JAR TP SCH ×2 (09:00→21:37)
[2017-08-19] MEDS: FAMOTIDINE (20 MG) 20 MG TABLET GT SCH ×2 (09:00→21:36)
[2017-08-19] MEDS: CLOPIDOGREL BISULFATE 75 MG TABLET GT SCH (09:00)
[2017-08-19] MEDS: BACLOFEN (10 MG) 10 MG TABLET GT SCH ×4 (09:00→21:36)
[2017-08-19] MEDS: METOPROLOL TARTRATE 25 MG TABLET GT SCH ×2 (09:00→17:21)
[2017-08-19] MEDS: CALCIUM CARBONATE 500 MG TAB.CHEW GT SCH ×3 (09:00→17:21)
[2017-08-19] MEDS: GABAPENTIN 300 MG CAPSULE GT SCH ×3 (09:00→17:21)
[2017-08-19] MEDS: ASCORBIC ACID 500 MG TABLET GT SCH ×2 (09:00→17:21)
[2017-08-19] MEDS: ENSURE ENLIVE CHOC 237 ML CAN PO SCH ×3 (09:00→17:21)
[2017-08-19] MEDS: PROSOURCE / PROSTAT (PYXIS) 30 ML UDC GT SCH ×3 (09:00→17:21)
[2017-08-19] MEDS: ESCITALOPRAM OXALATE (10 MG) 10 MG TABLET GT SCH (09:00)
[2017-08-19] MEDS: ACIDOPHILUS/BULGARICUS 1 EACH TAB.CHEW GT SCH ×3 (09:00→17:21)
[2017-08-19] MEDS: METHADONE HCL 10 MG TABLET GT SCH (09:00)
[2017-08-19] MEDS: CEFEPIME 1 GM in IV D5W 50 ML IV SCH ×2 (09:00→21:00)
[2017-08-19] MEDS: HYDROCODONE/APAP 10/325MG 1 EA TABLET GT SCH ×2 (12:45→22:20)
[2017-08-19] MEDS: Z GUARD REMEDY 4 OZ OINT TP SCH ×4 (13:45→22:50)
[2017-08-19] MEDS: HYDROGEL DRESSING 90 GM TUBE TP SCH ×2 (13:45→22:50)
[2017-08-19] MEDS: NYSTATIN/TRIAMCIN CREAM 15 GM TUBE TP SCH ×6 (13:45→22:50)
[2017-08-19] MEDS: ZINC OXIDE 30 GM TUBE TP SCH ×2 (13:45→22:50)
[2017-08-19] MEDS: BACI/NEOM/POLY B OINT PKT 1 UDPKT PACKET TP SCH ×2 (13:45→22:50)
[2017-08-19] MEDS: NYSTATIN/TRIAMCIN 15 GM CREAM 15 GM TUBE TP SCH ×2 (13:45→22:50)
[2017-08-19 19:51] VITALS: BP 104/63
[2017-08-19] MEDS: CRANBERRY GT SCH (21:36)
[2017-08-19] MEDS: POLYETHYLENE GLYCOL 3350 17 GM POWD.PACK GT SCH (21:36)
[2017-08-19] MEDS: MULTIVIT, IRON, MIN NO. 8, FA 1 TAB GT SCH (21:36)
[2017-08-19] MEDS: ZINC SULFATE 220 MG CAPSULE PO SCH (21:36)
[2017-08-19] MEDS: ENOXAPARIN SODIUM 40 MG/0.4 ML DISP.SYRIN SQ SCH (21:37)
[2017-08-19] MEDS: ATORVASTATIN CALCIUM 20MG TABLET GT SCH (21:37)
[2017-08-20 08:17] VITALS: BP 128/67
[2017-08-20] MEDS: ACIDOPHILUS/BULGARICUS 1 EACH TAB.CHEW GT SCH ×3 (08:53→17:10)
[2017-08-20] MEDS: BACLOFEN (10 MG) 10 MG TABLET GT SCH ×4 (08:53→21:31)
[2017-08-20] MEDS: ESCITALOPRAM OXALATE (10 MG) 10 MG TABLET GT SCH (08:53)
[2017-08-20] MEDS: GABAPENTIN 300 MG CAPSULE GT SCH ×3 (08:54→17:10)
[2017-08-20] MEDS: METHADONE HCL 10 MG TABLET GT SCH (08:54)
[2017-08-20] MEDS: FAMOTIDINE (20 MG) 20 MG TABLET GT SCH ×2 (08:54→21:31)
[2017-08-20] MEDS: HYDROCODONE/APAP 10/325MG 1 EA TABLET GT SCH ×2 (08:54→21:31)
[2017-08-20] MEDS: METOPROLOL TARTRATE 25 MG TABLET GT SCH ×2 (08:54→17:10)
[2017-08-20] MEDS: ASCORBIC ACID 500 MG TABLET GT SCH ×2 (08:55→17:10)
[2017-08-20] MEDS: CALCIUM CARBONATE 500 MG TAB.CHEW GT SCH ×3 (08:55→17:10)
[2017-08-20] MEDS: PROSOURCE / PROSTAT (PYXIS) 30 ML UDC GT SCH ×3 (08:55→17:10)
[2017-08-20] MEDS: CLOPIDOGREL BISULFATE 75 MG TABLET GT SCH (08:55)
[2017-08-20] MEDS: CALCITRIOL 0.25 MCG CAPSULE PO SCH (08:55)
[2017-08-20] MEDS: NYSTATIN/TRIAMCIN 15 GM CREAM 15 GM TUBE TP SCH ×2 (09:00→21:32)
[2017-08-20] MEDS: BACI/NEOM/POLY B OINT PKT 1 UDPKT PACKET TP SCH ×2 (09:00→21:33)
[2017-08-20] MEDS: ZINC OXIDE 30 GM TUBE TP SCH ×2 (09:00→21:33)
[2017-08-20] MEDS: MINERAL OIL/PETROL OINT 396 GM JAR TP SCH ×2 (09:00→21:32)
[2017-08-20] MEDS: HYDROGEL DRESSING 90 GM TUBE TP SCH ×2 (09:00→21:32)
[2017-08-20] MEDS: NYSTATIN/TRIAMCIN CREAM 15 GM TUBE TP SCH ×6 (09:00→21:32)
[2017-08-20] MEDS: Z GUARD REMEDY 4 OZ OINT TP SCH ×4 (09:00→21:33)
[2017-08-20] MEDS: ENSURE ENLIVE CHOC 237 ML CAN PO SCH ×3 (09:00→17:10)
[2017-08-20] MEDS: CEFEPIME 1 GM in IV D5W 50 ML IV SCH ×2 (09:42→21:00)
[2017-08-20] MEDS: CRANBERRY GT SCH (21:31)
[2017-08-20] MEDS: POLYETHYLENE GLYCOL 3350 17 GM POWD.PACK GT SCH (21:31)
[2017-08-20] MEDS: ZINC SULFATE 220 MG CAPSULE PO SCH (21:32)
[2017-08-20] MEDS: ENOXAPARIN SODIUM 40 MG/0.4 ML DISP.SYRIN SQ SCH (21:32)
[2017-08-20] MEDS: MULTIVIT, IRON, MIN NO. 8, FA 1 TAB GT SCH (21:32)
[2017-08-20] MEDS: ATORVASTATIN CALCIUM 20MG TABLET GT SCH (21:33)
[2017-08-21 04:56] VITALS: BP 93/56
[2017-08-21 07:55] VITALS: BP 113/69
[2017-08-21] MEDS: ENSURE ENLIVE CHOC 237 ML CAN PO SCH ×4 (09:00→16:55)
[2017-08-21] MEDS: CEFEPIME 1 GM in IV D5W 50 ML IV SCH (09:00)
[2017-08-21] MEDS: METOPROLOL TARTRATE 25 MG TABLET GT SCH ×2 (09:21→16:57)
[2017-08-21] MEDS: BACLOFEN (10 MG) 10 MG TABLET GT SCH ×4 (09:21→21:28)
[2017-08-21] MEDS: ESCITALOPRAM OXALATE (10 MG) 10 MG TABLET GT SCH (09:21)
[2017-08-21] MEDS: ACIDOPHILUS/BULGARICUS 1 EACH TAB.CHEW GT SCH ×3 (09:22→17:00)
[2017-08-21] MEDS: GABAPENTIN 300 MG CAPSULE GT SCH ×3 (09:22→17:03)
[2017-08-21] MEDS: FAMOTIDINE (20 MG) 20 MG TABLET GT SCH ×2 (09:22→21:29)
[2017-08-21] MEDS: CLOPIDOGREL BISULFATE 75 MG TABLET GT SCH (09:23)
[2017-08-21] MEDS: CALCIUM CARBONATE 500 MG TAB.CHEW GT SCH ×3 (09:23→17:03)
[2017-08-21] MEDS: ASCORBIC ACID 500 MG TABLET GT SCH ×2 (09:23→17:03)
[2017-08-21] MEDS: CALCITRIOL 0.25 MCG CAPSULE PO SCH (09:23)
[2017-08-21] MEDS: PROSOURCE / PROSTAT (PYXIS) 30 ML UDC GT SCH ×3 (09:23→17:03)
[2017-08-21] MEDS: MINERAL OIL/PETROL OINT 396 GM JAR TP SCH ×2 (09:24→21:29)
[2017-08-21] MEDS: BACI/NEOM/POLY B OINT PKT 1 UDPKT PACKET TP SCH ×2 (09:24→21:30)
[2017-08-21] MEDS: HYDROGEL DRESSING 90 GM TUBE TP SCH ×2 (09:24→21:31)
[2017-08-21] MEDS: Z GUARD REMEDY 4 OZ OINT TP SCH ×4 (09:24→21:31)
[2017-08-21] MEDS: NYSTATIN/TRIAMCIN CREAM 15 GM TUBE TP SCH ×6 (09:24→21:30)
[2017-08-21] MEDS: NYSTATIN/TRIAMCIN 15 GM CREAM 15 GM TUBE TP SCH ×2 (09:24→21:30)
[2017-08-21] MEDS: ZINC OXIDE 30 GM TUBE TP SCH ×2 (09:25→21:31)
[2017-08-21] MEDS: METHADONE HCL 10 MG TABLET GT SCH (09:26)
[2017-08-21] MEDS: HYDROCODONE/APAP 10/325MG 1 EA TABLET GT SCH ×2 (09:26→21:29)
[2017-08-21 20:06] VITALS: BP 105/61
[2017-08-21] MEDS: CRANBERRY GT SCH (21:28)
[2017-08-21] MEDS: POLYETHYLENE GLYCOL 3350 17 GM POWD.PACK GT SCH (21:28)
[2017-08-21] MEDS: ENOXAPARIN SODIUM 40 MG/0.4 ML DISP.SYRIN SQ SCH (21:29)
[2017-08-21] MEDS: ZINC SULFATE 220 MG CAPSULE PO SCH (21:29)
[2017-08-21] MEDS: MULTIVIT, IRON, MIN NO. 8, FA 1 TAB GT SCH (21:29)
[2017-08-21] MEDS: ATORVASTATIN CALCIUM 20MG TABLET GT SCH (21:31)
[2017-08-22 06:56] LABS: BASOPHILS % (AUTO) 0.4 % (0.0-2.0); EOSINOPHILS % (AUTO) 2.4 % (0.0-6.0); HEMATOCRIT 30 % (39-51); HEMOGLOBIN 9.3 g/dL (13.5-17.5); LYMPHOCYTES # (AUTO) 2.2 /CMM (0.8-4.8); MEAN CORPUSCULAR HEMOGLOBIN 25 PG (26.0-33.0); MEAN CORPUSCULAR HGB CONC 31 g/dl (31.0-36.0); MEAN CORPUSCULAR VOLUME 82 fL (80-96); MONOCYTES # (AUTO) 1.3 /CMM (0.1-1.30); NEUTROPHILS # (AUTO) 6.3 /CMM (1.8-8.9); NEUTROPHILS % (AUTO) 62.2 % (43.0-81.0); PLATELET COUNT (AUTO) 623 /CMM (150-450); RDW COEFFICIENT OF VARIATION 19.4 (11.5-15.0); RED BLOOD CELL COUNT(AUTO) 3.71 MIL/uL (4.5-6.0); WHITE BLOOD COUNT (AUTO) 10.1 K/uL (4.3-11.0)
[2017-08-22 07:33] VITALS: BP 128/81
[2017-08-22] MEDS: CEFEPIME 1 GM in IV D5W 50 ML IV SCH ×2 (09:00→21:00)
[2017-08-22] MEDS: BACLOFEN (10 MG) 10 MG TABLET GT SCH ×4 (09:27→21:15)
[2017-08-22] MEDS: ACIDOPHILUS/BULGARICUS 1 EACH TAB.CHEW GT SCH ×3 (09:27→16:50)
[2017-08-22] MEDS: METOPROLOL TARTRATE 25 MG TABLET GT SCH ×2 (09:27→16:50)
[2017-08-22] MEDS: ESCITALOPRAM OXALATE (10 MG) 10 MG TABLET GT SCH (09:27)
[2017-08-22] MEDS: PROSOURCE / PROSTAT (PYXIS) 30 ML UDC GT SCH ×3 (09:28→16:50)
[2017-08-22] MEDS: CALCIUM CARBONATE 500 MG TAB.CHEW GT SCH ×3 (09:28→16:50)
[2017-08-22] MEDS: CALCITRIOL 0.25 MCG CAPSULE PO SCH (09:28)
[2017-08-22] MEDS: CLOPIDOGREL BISULFATE 75 MG TABLET GT SCH (09:28)
[2017-08-22] MEDS: ENSURE ENLIVE CHOC 237 ML CAN PO SCH ×3 (09:28→16:50)
[2017-08-22] MEDS: FAMOTIDINE (20 MG) 20 MG TABLET GT SCH ×2 (09:28→21:16)
[2017-08-22] MEDS: METHADONE HCL 10 MG TABLET GT SCH (09:28)
[2017-08-22] MEDS: ASCORBIC ACID 500 MG TABLET GT SCH ×2 (09:28→16:50)
[2017-08-22] MEDS: GABAPENTIN 300 MG CAPSULE GT SCH ×3 (09:28→16:50)
[2017-08-22] MEDS: HYDROCODONE/APAP 10/325MG 1 EA TABLET GT SCH ×2 (13:24→21:16)
[2017-08-22] MEDS: HYDROGEL DRESSING 90 GM TUBE TP SCH ×2 (14:30→21:17)
[2017-08-22] MEDS: Z GUARD REMEDY 4 OZ OINT TP SCH ×4 (14:30→21:17)
[2017-08-22] MEDS: MINERAL OIL/PETROL OINT 396 GM JAR TP SCH ×2 (14:30→21:16)
[2017-08-22] MEDS: ZINC OXIDE 30 GM TUBE TP SCH ×2 (14:30→21:18)
[2017-08-22] MEDS: NYSTATIN/TRIAMCIN CREAM 15 GM TUBE TP SCH ×6 (14:30→21:17)
[2017-08-22] MEDS: NYSTATIN/TRIAMCIN 15 GM CREAM 15 GM TUBE TP SCH ×2 (14:30→21:17)
[2017-08-22] MEDS: BACI/NEOM/POLY B OINT PKT 1 UDPKT PACKET TP SCH ×2 (14:30→21:17)
[2017-08-22 20:13] VITALS: BP 127/77
[2017-08-22] MEDS: CRANBERRY GT SCH (21:15)
[2017-08-22] MEDS: POLYETHYLENE GLYCOL 3350 17 GM POWD.PACK GT SCH (21:15)
[2017-08-22] MEDS: ZINC SULFATE 220 MG CAPSULE PO SCH (21:16)
[2017-08-22] MEDS: MULTIVIT, IRON, MIN NO. 8, FA 1 TAB GT SCH (21:16)
[2017-08-22] MEDS: ENOXAPARIN SODIUM 40 MG/0.4 ML DISP.SYRIN SQ SCH (21:16)
[2017-08-22] MEDS: ATORVASTATIN CALCIUM 20MG TABLET GT SCH (21:18)
[2017-08-23] MEDS: METHADONE HCL 10 MG TABLET GT SCH (04:24)
[2017-08-23] MEDS: CEFEPIME 1 GM in IV D5W 50 ML IV SCH ×2 (09:00→21:28)
[2017-08-23] MEDS: ACIDOPHILUS/BULGARICUS 1 EACH TAB.CHEW GT SCH ×3 (09:04→17:15)
[2017-08-23] MEDS: BACLOFEN (10 MG) 10 MG TABLET GT SCH ×4 (09:04→21:32)
[2017-08-23] MEDS: ESCITALOPRAM OXALATE (10 MG) 10 MG TABLET GT SCH (09:04)
[2017-08-23] MEDS: METOPROLOL TARTRATE 25 MG TABLET GT SCH ×2 (09:04→17:17)
[2017-08-23] MEDS: ASCORBIC ACID 500 MG TABLET GT SCH ×2 (09:05→17:17)
[2017-08-23] MEDS: GABAPENTIN 300 MG CAPSULE GT SCH ×3 (09:05→17:17)
[2017-08-23] MEDS: CALCIUM CARBONATE 500 MG TAB.CHEW GT SCH ×3 (09:05→17:17)
[2017-08-23] MEDS: PROSOURCE / PROSTAT (PYXIS) 30 ML UDC GT SCH ×3 (09:05→17:17)
[2017-08-23] MEDS: FAMOTIDINE (20 MG) 20 MG TABLET GT SCH ×2 (09:05→21:32)
[2017-08-23] MEDS: CLOPIDOGREL BISULFATE 75 MG TABLET GT SCH (09:05)
[2017-08-23] MEDS: CALCITRIOL 0.25 MCG CAPSULE PO SCH (09:05)
[2017-08-23] MEDS: ENSURE ENLIVE CHOC 237 ML CAN PO SCH ×3 (09:05→17:30)
--- NOTE | 2017-08-23 13:00 | NUR ---
Pt refused ensure enlive choclate 1 bottle by PO in the afternoon.Pt said he feels full and no more fluid.I offered X3,explained the risk and benefit x3,still refused.
[2017-08-23] MEDS: HYDROCODONE/APAP 10/325MG 1 EA TABLET GT SCH ×2 (13:30→22:00)
[2017-08-23] MEDS: BACI/NEOM/POLY B OINT PKT 1 UDPKT PACKET TP SCH ×2 (14:00→23:00)
[2017-08-23] MEDS: Z GUARD REMEDY 4 OZ OINT TP SCH ×4 (14:00→23:00)
[2017-08-23] MEDS: ZINC OXIDE 30 GM TUBE TP SCH ×2 (14:00→23:00)
[2017-08-23] MEDS: NYSTATIN/TRIAMCIN CREAM 15 GM TUBE TP SCH ×6 (14:00→23:00)
[2017-08-23] MEDS: NYSTATIN/TRIAMCIN 15 GM CREAM 15 GM TUBE TP SCH ×2 (14:00→23:00)
[2017-08-23] MEDS: HYDROGEL DRESSING 90 GM TUBE TP SCH ×2 (14:00→23:00)
[2017-08-23] MEDS: MINERAL OIL/PETROL OINT 396 GM JAR TP SCH ×2 (14:00→21:33)
[2017-08-23] MEDS: ZINC SULFATE 220 MG CAPSULE PO SCH (21:32)
[2017-08-23] MEDS: MULTIVIT, IRON, MIN NO. 8, FA 1 TAB GT SCH (21:32)
[2017-08-23] MEDS: CRANBERRY GT SCH (21:32)
[2017-08-23] MEDS: POLYETHYLENE GLYCOL 3350 17 GM POWD.PACK GT SCH (21:32)
[2017-08-23] MEDS: ENOXAPARIN SODIUM 40 MG/0.4 ML DISP.SYRIN SQ SCH (21:33)
[2017-08-23] MEDS: ATORVASTATIN CALCIUM 20MG TABLET GT SCH (21:38)
[2017-08-23 23:25] VITALS: BP 124/78
[2017-08-24] MEDS: MAGNESIUM HYDROXIDE 30 ML UDC GT PRN ×2 (06:35→20:43)
[2017-08-24 07:59] VITALS: BP 157/78
[2017-08-24] MEDS: CEFEPIME 1 GM in IV D5W 50 ML IV SCH (09:00)
[2017-08-24] MEDS: ESCITALOPRAM OXALATE (10 MG) 10 MG TABLET GT SCH (09:56)
[2017-08-24] MEDS: ACIDOPHILUS/BULGARICUS 1 EACH TAB.CHEW GT SCH ×3 (09:56→17:57)
[2017-08-24] MEDS: BACLOFEN (10 MG) 10 MG TABLET GT SCH ×4 (09:56→20:41)
[2017-08-24] MEDS: GABAPENTIN 300 MG CAPSULE GT SCH ×3 (09:57→17:58)
[2017-08-24] MEDS: METOPROLOL TARTRATE 25 MG TABLET GT SCH ×2 (09:57→17:58)
[2017-08-24] MEDS: METHADONE HCL 10 MG TABLET GT SCH (09:57)
[2017-08-24] MEDS: PROSOURCE / PROSTAT (PYXIS) 30 ML UDC GT SCH ×3 (09:58→17:58)
[2017-08-24] MEDS: FAMOTIDINE (20 MG) 20 MG TABLET GT SCH ×2 (09:58→20:42)
[2017-08-24] MEDS: CALCITRIOL 0.25 MCG CAPSULE PO SCH (09:58)
[2017-08-24] MEDS: CLOPIDOGREL BISULFATE 75 MG TABLET GT SCH (09:58)
[2017-08-24] MEDS: CALCIUM CARBONATE 500 MG TAB.CHEW GT SCH ×3 (09:58→17:58)
[2017-08-24] MEDS: HYDROCODONE/APAP 10/325MG 1 EA TABLET GT SCH ×2 (09:58→20:42)
[2017-08-24] MEDS: ENSURE ENLIVE CHOC 237 ML CAN PO SCH ×3 (09:58→17:58)
[2017-08-24] MEDS: ASCORBIC ACID 500 MG TABLET GT SCH ×2 (09:58→17:58)
--- NOTE | 2017-08-24 10:00 | NUR ---
terrazzo worker helper met with the resident as she was told by RNA that the resident's dvd player is not working. SW re-connected the resident's dvd player but it appears that the remote needs new batteries. SW left a movie playing for the resident. RAVI will inform engineering to see if they have extra batteries for resident's remote.
[2017-08-24] MEDS: Z GUARD REMEDY 4 OZ OINT TP SCH ×4 (10:30→20:42)
[2017-08-24] MEDS: MINERAL OIL/PETROL OINT 396 GM JAR TP SCH ×2 (10:30→20:42)
[2017-08-24] MEDS: NYSTATIN/TRIAMCIN CREAM 15 GM TUBE TP SCH ×6 (10:30→20:42)
[2017-08-24] MEDS: NYSTATIN/TRIAMCIN 15 GM CREAM 15 GM TUBE TP SCH ×2 (10:30→20:42)
[2017-08-24] MEDS: ZINC OXIDE 30 GM TUBE TP SCH ×2 (10:30→20:42)
[2017-08-24] MEDS: BACI/NEOM/POLY B OINT PKT 1 UDPKT PACKET TP SCH ×2 (10:30→20:42)
[2017-08-24] MEDS: HYDROGEL DRESSING 90 GM TUBE TP SCH ×2 (10:30→20:42)
--- NOTE | 2017-08-24 14:00 | NUR ---
Went to resident's room and assisted to put DVD of choice as he wanted to watch a movie. Also talked to resident regarding his goals on turning/repositioning on bed which remains the same when he was asked: that he agreed to turn at least every 3 hours during the day for total of 4 position changes and at least every 4 hours at night for total of 3 position changes. Explained that when he was read[facility] 07[facility]07[facility], another pressure sore site on left buttock was noted with treatment ongoing and therefore turning/repositioning is important to relieve pressure and promote healing also of other active sites. Informed him about feedback that he only agrees to reposition once or twice the most in a shift. Reminded resident that refusing to turn may make present skin condition worse and add more sites. And since he is alert oriented and able to make decisions his wishes are respected and observed. Staff will continue to offer and assist him to turn/reposition per his goal. Resident acknowledged information and smiled. Care planning continued. Sister in law aware of refusals to turn. Resident has chronic pain and on pain medications as ordered. Also with wedge pillows for turning/positioning.
[2017-08-24 19:58] VITALS: BP 113/74
[2017-08-24] MEDS: CRANBERRY GT SCH (20:41)
[2017-08-24] MEDS: POLYETHYLENE GLYCOL 3350 17 GM POWD.PACK GT SCH (20:41)
[2017-08-24] MEDS: ENOXAPARIN SODIUM 40 MG/0.4 ML DISP.SYRIN SQ SCH (20:42)
[2017-08-24] MEDS: MULTIVIT, IRON, MIN NO. 8, FA 1 TAB GT SCH (20:42)
[2017-08-24] MEDS: ZINC SULFATE 220 MG CAPSULE PO SCH (20:42)
[2017-08-24] MEDS: ATORVASTATIN CALCIUM 20MG TABLET GT SCH (22:00)
[2017-08-25 07:39] VITALS: BP 132/78
[2017-08-25] MEDS: Z GUARD REMEDY 4 OZ OINT TP SCH ×4 (09:00→20:22)
[2017-08-25] MEDS: ZINC OXIDE 30 GM TUBE TP SCH ×2 (09:00→20:22)
[2017-08-25] MEDS: ESCITALOPRAM OXALATE (10 MG) 10 MG TABLET GT SCH (09:27)
[2017-08-25] MEDS: ACIDOPHILUS/BULGARICUS 1 EACH TAB.CHEW GT SCH ×3 (09:27→16:58)
[2017-08-25] MEDS: BACLOFEN (10 MG) 10 MG TABLET GT SCH ×4 (09:27→20:21)
[2017-08-25] MEDS: HYDROCODONE/APAP 10/325MG 1 EA TABLET GT SCH ×2 (09:28→21:14)
[2017-08-25] MEDS: FAMOTIDINE (20 MG) 20 MG TABLET GT SCH ×2 (09:28→20:21)
[2017-08-25] MEDS: CLOPIDOGREL BISULFATE 75 MG TABLET GT SCH (09:28)
[2017-08-25] MEDS: GABAPENTIN 300 MG CAPSULE GT SCH ×3 (09:28→16:58)
[2017-08-25] MEDS: METOPROLOL TARTRATE 25 MG TABLET GT SCH ×2 (09:28→16:58)
[2017-08-25] MEDS: METHADONE HCL 10 MG TABLET GT SCH (09:28)
[2017-08-25] MEDS: ASCORBIC ACID 500 MG TABLET GT SCH ×2 (09:29→16:59)
[2017-08-25] MEDS: ENSURE ENLIVE CHOC 237 ML CAN PO SCH ×3 (09:29→16:59)
[2017-08-25] MEDS: PROSOURCE / PROSTAT (PYXIS) 30 ML UDC GT SCH ×3 (09:29→16:58)
[2017-08-25] MEDS: CALCIUM CARBONATE 500 MG TAB.CHEW GT SCH ×3 (09:29→16:58)
[2017-08-25] MEDS: CALCITRIOL 0.25 MCG CAPSULE PO SCH (09:29)
[2017-08-25] MEDS: NYSTATIN/TRIAMCIN CREAM 15 GM TUBE TP SCH ×6 (09:59→20:21)
[2017-08-25] MEDS: NYSTATIN/TRIAMCIN 15 GM CREAM 15 GM TUBE TP SCH ×2 (09:59→20:21)
[2017-08-25] MEDS: MINERAL OIL/PETROL OINT 396 GM JAR TP SCH ×2 (09:59→20:21)
[2017-08-25] MEDS: HYDROGEL DRESSING 90 GM TUBE TP SCH ×2 (09:59→20:21)
[2017-08-25] MEDS: BACI/NEOM/POLY B OINT PKT 1 UDPKT PACKET TP SCH ×2 (09:59→20:21)
[2017-08-25 19:23] VITALS: BP 103/62
[2017-08-25] MEDS: ENOXAPARIN SODIUM 40 MG/0.4 ML DISP.SYRIN SQ SCH (20:21)
[2017-08-25] MEDS: ZINC SULFATE 220 MG CAPSULE PO SCH (20:21)
[2017-08-25] MEDS: CRANBERRY GT SCH (20:21)
[2017-08-25] MEDS: MULTIVIT, IRON, MIN NO. 8, FA 1 TAB GT SCH (20:21)
[2017-08-25] MEDS: POLYETHYLENE GLYCOL 3350 17 GM POWD.PACK GT SCH (20:21)
[2017-08-25] MEDS: MAGNESIUM HYDROXIDE 30 ML UDC GT PRN (20:22)
[2017-08-25] MEDS: ATORVASTATIN CALCIUM 20MG TABLET GT SCH (21:14)
[2017-08-26 07:48] VITALS: BP 121/69
[2017-08-26] MEDS: ACIDOPHILUS/BULGARICUS 1 EACH TAB.CHEW GT SCH ×3 (09:06→17:14)
[2017-08-26] MEDS: BACLOFEN (10 MG) 10 MG TABLET GT SCH ×4 (09:06→20:09)
[2017-08-26] MEDS: ESCITALOPRAM OXALATE (10 MG) 10 MG TABLET GT SCH (09:06)
[2017-08-26] MEDS: METOPROLOL TARTRATE 25 MG TABLET GT SCH ×2 (09:07→17:15)
[2017-08-26] MEDS: CALCITRIOL 0.25 MCG CAPSULE PO SCH (09:08)
[2017-08-26] MEDS: PROSOURCE / PROSTAT (PYXIS) 30 ML UDC GT SCH ×3 (09:08→17:15)
[2017-08-26] MEDS: CALCIUM CARBONATE 500 MG TAB.CHEW GT SCH ×3 (09:08→17:15)
[2017-08-26] MEDS: ASCORBIC ACID 500 MG TABLET GT SCH ×2 (09:08→17:15)
[2017-08-26] MEDS: GABAPENTIN 300 MG CAPSULE GT SCH ×3 (09:08→17:15)
[2017-08-26] MEDS: ENSURE ENLIVE CHOC 237 ML CAN PO SCH ×3 (09:08→17:15)
[2017-08-26] MEDS: HYDROCODONE/APAP 10/325MG 1 EA TABLET GT SCH ×2 (09:08→20:10)
[2017-08-26] MEDS: CLOPIDOGREL BISULFATE 75 MG TABLET GT SCH (09:08)
[2017-08-26] MEDS: METHADONE HCL 10 MG TABLET GT SCH (09:08)
[2017-08-26] MEDS: FAMOTIDINE (20 MG) 20 MG TABLET GT SCH ×2 (09:08→20:10)
[2017-08-26] MEDS: NYSTATIN/TRIAMCIN 15 GM CREAM 15 GM TUBE TP SCH ×2 (09:43→20:10)
[2017-08-26] MEDS: MINERAL OIL/PETROL OINT 396 GM JAR TP SCH ×2 (09:43→20:10)
[2017-08-26] MEDS: BACI/NEOM/POLY B OINT PKT 1 UDPKT PACKET TP SCH ×2 (09:43→20:10)
[2017-08-26] MEDS: NYSTATIN/TRIAMCIN CREAM 15 GM TUBE TP SCH ×6 (09:43→20:10)
[2017-08-26] MEDS: HYDROGEL DRESSING 90 GM TUBE TP SCH ×2 (09:43→20:10)
[2017-08-26] MEDS: ZINC OXIDE 30 GM TUBE TP SCH ×2 (09:44→20:11)
[2017-08-26] MEDS: Z GUARD REMEDY 4 OZ OINT TP SCH ×4 (09:44→20:11)
[2017-08-26 19:31] VITALS: BP 108/61
[2017-08-26] MEDS: POLYETHYLENE GLYCOL 3350 17 GM POWD.PACK GT SCH (20:09)
[2017-08-26] MEDS: CRANBERRY GT SCH (20:09)
[2017-08-26] MEDS: ZINC SULFATE 220 MG CAPSULE PO SCH (20:10)
[2017-08-26] MEDS: ENOXAPARIN SODIUM 40 MG/0.4 ML DISP.SYRIN SQ SCH (20:10)
[2017-08-26] MEDS: MULTIVIT, IRON, MIN NO. 8, FA 1 TAB GT SCH (20:10)
[2017-08-26] MEDS: MAGNESIUM HYDROXIDE 30 ML UDC GT PRN (20:11)
[2017-08-26] MEDS: ATORVASTATIN CALCIUM 20MG TABLET GT SCH (21:10)
[2017-08-27 08:16] VITALS: BP 129/77
[2017-08-27] MEDS: ESCITALOPRAM OXALATE (10 MG) 10 MG TABLET GT SCH (09:08)
[2017-08-27] MEDS: BACLOFEN (10 MG) 10 MG TABLET GT SCH ×4 (09:08→21:17)
[2017-08-27] MEDS: ACIDOPHILUS/BULGARICUS 1 EACH TAB.CHEW GT SCH ×3 (09:08→16:38)
[2017-08-27] MEDS: HYDROCODONE/APAP 10/325MG 1 EA TABLET GT SCH ×2 (09:20→21:19)
[2017-08-27] MEDS: ASCORBIC ACID 500 MG TABLET GT SCH ×2 (09:20→16:38)
[2017-08-27] MEDS: CLOPIDOGREL BISULFATE 75 MG TABLET GT SCH (09:20)
[2017-08-27] MEDS: FAMOTIDINE (20 MG) 20 MG TABLET GT SCH ×2 (09:20→21:19)
[2017-08-27] MEDS: GABAPENTIN 300 MG CAPSULE GT SCH ×3 (09:20→16:38)
[2017-08-27] MEDS: METHADONE HCL 10 MG TABLET GT SCH (09:20)
[2017-08-27] MEDS: CALCIUM CARBONATE 500 MG TAB.CHEW GT SCH ×3 (09:20→16:38)
[2017-08-27] MEDS: METOPROLOL TARTRATE 25 MG TABLET GT SCH ×2 (09:20→16:38)
[2017-08-27] MEDS: PROSOURCE / PROSTAT (PYXIS) 30 ML UDC GT SCH ×3 (09:20→16:38)
[2017-08-27] MEDS: ENSURE ENLIVE CHOC 237 ML CAN PO SCH ×3 (09:20→16:38)
[2017-08-27] MEDS: NYSTATIN/TRIAMCIN CREAM 15 GM TUBE TP SCH ×6 (09:21→21:24)
[2017-08-27] MEDS: CALCITRIOL 0.25 MCG CAPSULE PO SCH (09:21)
[2017-08-27] MEDS: MINERAL OIL/PETROL OINT 396 GM JAR TP SCH ×2 (09:21→21:23)
[2017-08-27] MEDS: HYDROGEL DRESSING 90 GM TUBE TP SCH ×2 (09:21→21:23)
[2017-08-27] MEDS: Z GUARD REMEDY 4 OZ OINT TP SCH ×4 (09:22→21:24)
[2017-08-27] MEDS: ZINC OXIDE 30 GM TUBE TP SCH ×2 (09:22→21:24)
[2017-08-27] MEDS: BACI/NEOM/POLY B OINT PKT 1 UDPKT PACKET TP SCH ×2 (09:22→21:24)
[2017-08-27] MEDS: NYSTATIN/TRIAMCIN 15 GM CREAM 15 GM TUBE TP SCH ×2 (09:22→21:24)
[2017-08-27 20:00] VITALS: BP 128/81
[2017-08-27] MEDS: MULTIVIT, IRON, MIN NO. 8, FA 1 TAB GT SCH (21:16)
[2017-08-27] MEDS: CRANBERRY GT SCH (21:16)
[2017-08-27] MEDS: POLYETHYLENE GLYCOL 3350 17 GM POWD.PACK GT SCH (21:17)
[2017-08-27] MEDS: ZINC SULFATE 220 MG CAPSULE PO SCH (21:20)
[2017-08-27] MEDS: ENOXAPARIN SODIUM 40 MG/0.4 ML DISP.SYRIN SQ SCH (21:21)
[2017-08-27] MEDS: ATORVASTATIN CALCIUM 20MG TABLET GT SCH (21:24)
[2017-08-28 07:48] VITALS: BP 136/75
[2017-08-28] MEDS: ESCITALOPRAM OXALATE (10 MG) 10 MG TABLET GT SCH (09:00)
[2017-08-28] MEDS: ACIDOPHILUS/BULGARICUS 1 EACH TAB.CHEW GT SCH ×3 (09:00→17:00)
[2017-08-28] MEDS: PROSOURCE / PROSTAT (PYXIS) 30 ML UDC GT SCH ×3 (09:00→17:00)
[2017-08-28] MEDS: CALCITRIOL 0.25 MCG CAPSULE PO SCH (09:00)
[2017-08-28] MEDS: CLOPIDOGREL BISULFATE 75 MG TABLET GT SCH (09:00)
[2017-08-28] MEDS: METHADONE HCL 10 MG TABLET GT SCH (09:00)
[2017-08-28] MEDS: GABAPENTIN 300 MG CAPSULE GT SCH ×3 (09:00→17:00)
[2017-08-28] MEDS: ENSURE ENLIVE CHOC 237 ML CAN PO SCH ×3 (09:00→17:00)
[2017-08-28] MEDS: CALCIUM CARBONATE 500 MG TAB.CHEW GT SCH ×3 (09:00→17:00)
[2017-08-28] MEDS: ASCORBIC ACID 500 MG TABLET GT SCH ×2 (09:00→17:00)
[2017-08-28] MEDS: HYDROCODONE/APAP 10/325MG 1 EA TABLET GT SCH ×2 (09:00→21:49)
[2017-08-28] MEDS: BACLOFEN (10 MG) 10 MG TABLET GT SCH ×4 (09:00→21:47)
[2017-08-28] MEDS: METOPROLOL TARTRATE 25 MG TABLET GT SCH ×2 (09:00→17:00)
[2017-08-28] MEDS: FAMOTIDINE (20 MG) 20 MG TABLET GT SCH ×2 (09:00→21:49)
--- NOTE | 2017-08-28 09:40 | NUR ---
SW spoke to the resident's sister-in law Esparza. She stated that she would not be able to attend Monday's IDT meeting as she [place] be [place] of the [place] of 08[place]31/2017 and will return October 02, 2017. She noted that the unit may still call her during this time however if she does not answer, she would like her next contact to be the resident's brother Mello Marley ([phone]) and if he does not answer, the resident's sister Janiya Bess ([phone]). Charge nurse informed and a notice was placed in the resident's chart.
[2017-08-28] MEDS: ZINC OXIDE 30 GM TUBE TP SCH ×2 (11:00→21:52)
[2017-08-28] MEDS: NYSTATIN/TRIAMCIN CREAM 15 GM TUBE TP SCH ×6 (11:00→21:51)
[2017-08-28] MEDS: Z GUARD REMEDY 4 OZ OINT TP SCH ×4 (11:00→21:52)
[2017-08-28] MEDS: MINERAL OIL/PETROL OINT 396 GM JAR TP SCH ×2 (11:00→21:51)
[2017-08-28] MEDS: BACI/NEOM/POLY B OINT PKT 1 UDPKT PACKET TP SCH ×2 (11:00→21:52)
[2017-08-28] MEDS: HYDROGEL DRESSING 90 GM TUBE TP SCH ×2 (11:00→21:51)
[2017-08-28] MEDS: NYSTATIN/TRIAMCIN 15 GM CREAM 15 GM TUBE TP SCH ×2 (11:00→21:52)
[2017-08-28 19:52] VITALS: BP 133/77
[2017-08-28] MEDS: CRANBERRY GT SCH (21:47)
[2017-08-28] MEDS: MULTIVIT, IRON, MIN NO. 8, FA 1 TAB GT SCH (21:47)
[2017-08-28] MEDS: POLYETHYLENE GLYCOL 3350 17 GM POWD.PACK GT SCH (21:48)
[2017-08-28] MEDS: ZINC SULFATE 220 MG CAPSULE PO SCH (21:50)
[2017-08-28] MEDS: ENOXAPARIN SODIUM 40 MG/0.4 ML DISP.SYRIN SQ SCH (21:51)
[2017-08-28] MEDS: ATORVASTATIN CALCIUM 20MG TABLET GT SCH (21:52)
--- NOTE | 2017-08-29 00:05 | NUR ---
NURSES NOTES: @ around 2230, nurses went to pts room to turn and repositioned the pt and the same time do the tx to pts back, we ask the pt if we can lower his head of the bed down, pt refused right away, nurse asked the pt why he does'nt want the head of bed down and explain to pt that we need to so we can turned him, pt said his nauseated and want to throw up, nurses told him that were going to get the basin, but before we got the basin pt throw up already, pt is very mad at the nurses, calling them names and pt told them to get out his room, nurses told the pt that they need to change his gown and leave him alone, pt agreed and no tx done during the shift.
[2017-08-29 07:44] VITALS: BP 130/67
[2017-08-29] MEDS: ACIDOPHILUS/BULGARICUS 1 EACH TAB.CHEW GT SCH ×3 (09:00→17:35)
[2017-08-29] MEDS: GABAPENTIN 300 MG CAPSULE GT SCH ×3 (09:00→17:36)
[2017-08-29] MEDS: FAMOTIDINE (20 MG) 20 MG TABLET GT SCH ×2 (09:00→21:28)
[2017-08-29] MEDS: ENSURE ENLIVE CHOC 237 ML CAN PO SCH ×3 (09:00→17:36)
[2017-08-29] MEDS: METOPROLOL TARTRATE 25 MG TABLET GT SCH ×2 (09:00→17:36)
[2017-08-29] MEDS: ESCITALOPRAM OXALATE (10 MG) 10 MG TABLET GT SCH (09:00)
[2017-08-29] MEDS: CLOPIDOGREL BISULFATE 75 MG TABLET GT SCH (09:00)
[2017-08-29] MEDS: ASCORBIC ACID 500 MG TABLET GT SCH ×2 (09:00→17:36)
[2017-08-29] MEDS: BACLOFEN (10 MG) 10 MG TABLET GT SCH ×4 (09:00→21:26)
[2017-08-29] MEDS: CALCITRIOL 0.25 MCG CAPSULE PO SCH (09:00)
[2017-08-29] MEDS: CALCIUM CARBONATE 500 MG TAB.CHEW GT SCH ×3 (09:00→17:36)
[2017-08-29] MEDS: HYDROCODONE/APAP 10/325MG 1 EA TABLET GT SCH ×2 (09:00→21:28)
[2017-08-29] MEDS: METHADONE HCL 10 MG TABLET GT SCH ×2 (09:00→23:35)
[2017-08-29] MEDS: PROSOURCE / PROSTAT (PYXIS) 30 ML UDC GT SCH ×3 (09:00→17:36)
[2017-08-29] MEDS: Z GUARD REMEDY 4 OZ OINT TP SCH ×4 (11:00→21:29)
[2017-08-29] MEDS: HYDROGEL DRESSING 90 GM TUBE TP SCH ×2 (11:00→21:29)
[2017-08-29] MEDS: MINERAL OIL/PETROL OINT 396 GM JAR TP SCH ×2 (11:00→21:29)
[2017-08-29] MEDS: ZINC OXIDE 30 GM TUBE TP SCH ×2 (11:00→21:30)
[2017-08-29] MEDS: BACI/NEOM/POLY B OINT PKT 1 UDPKT PACKET TP SCH ×2 (11:00→21:29)
[2017-08-29] MEDS: NYSTATIN/TRIAMCIN 15 GM CREAM 15 GM TUBE TP SCH ×2 (11:00→21:29)
[2017-08-29] MEDS: NYSTATIN/TRIAMCIN CREAM 15 GM TUBE TP SCH ×6 (11:00→21:29)
[2017-08-29 20:29] VITALS: BP 105/72
[2017-08-29] MEDS: MULTIVIT, IRON, MIN NO. 8, FA 1 TAB GT SCH (21:23)
[2017-08-29] MEDS: CRANBERRY GT SCH (21:25)
[2017-08-29] MEDS: POLYETHYLENE GLYCOL 3350 17 GM POWD.PACK GT SCH (21:27)
[2017-08-29] MEDS: ENOXAPARIN SODIUM 40 MG/0.4 ML DISP.SYRIN SQ SCH (21:28)
[2017-08-29] MEDS: ZINC SULFATE 220 MG CAPSULE PO SCH (21:28)
[2017-08-29] MEDS: ATORVASTATIN CALCIUM 20MG TABLET GT SCH (21:30)
[2017-08-30 08:01] VITALS: BP 118/78
[2017-08-30] MEDS: ACIDOPHILUS/BULGARICUS 1 EACH TAB.CHEW GT SCH ×3 (09:29→17:00)
[2017-08-30] MEDS: BACLOFEN (10 MG) 10 MG TABLET GT SCH ×4 (09:29→21:00)
[2017-08-30] MEDS: ESCITALOPRAM OXALATE (10 MG) 10 MG TABLET GT SCH (09:29)
[2017-08-30] MEDS: GABAPENTIN 300 MG CAPSULE GT SCH ×3 (09:30→17:00)
[2017-08-30] MEDS: ENSURE ENLIVE CHOC 237 ML CAN PO SCH ×3 (09:30→17:18)
[2017-08-30] MEDS: HYDROCODONE/APAP 10/325MG 1 EA TABLET GT SCH ×2 (09:30→21:00)
[2017-08-30] MEDS: FAMOTIDINE (20 MG) 20 MG TABLET GT SCH ×2 (09:30→21:00)
[2017-08-30] MEDS: METOPROLOL TARTRATE 25 MG TABLET GT SCH ×2 (09:30→17:00)
[2017-08-30] MEDS: PROSOURCE / PROSTAT (PYXIS) 30 ML UDC GT SCH ×3 (09:31→17:00)
[2017-08-30] MEDS: CALCITRIOL 0.25 MCG CAPSULE PO SCH (09:31)
[2017-08-30] MEDS: ASCORBIC ACID 500 MG TABLET GT SCH ×2 (09:31→17:00)
[2017-08-30] MEDS: CLOPIDOGREL BISULFATE 75 MG TABLET GT SCH (09:31)
[2017-08-30] MEDS: CALCIUM CARBONATE 500 MG TAB.CHEW GT SCH ×3 (09:31→17:00)
--- NOTE | 2017-08-30 10:15 | NUR ---
Pt G tube is get dislodged,G tube stoma is still intact and complications noted.Reinserted G tube FR#24 x5CC NS. notified and ordered Stat KUB abdomen.New orders noted and carried out.
[2017-08-30] MEDS: NYSTATIN/TRIAMCIN 15 GM CREAM 15 GM TUBE TP SCH ×2 (10:30→22:00)
[2017-08-30] MEDS: HYDROGEL DRESSING 90 GM TUBE TP SCH ×2 (10:30→22:00)
[2017-08-30] MEDS: ZINC OXIDE 30 GM TUBE TP SCH ×2 (10:30→22:00)
[2017-08-30] MEDS: NYSTATIN/TRIAMCIN CREAM 15 GM TUBE TP SCH ×6 (10:30→22:00)
[2017-08-30] MEDS ORDERED: DIATR MEGLU/DIATRIZOATE SODIUM 30 ML BOTTLE (GASTROGRAPHIN) ONE (10:30)
[2017-08-30] MEDS: BACI/NEOM/POLY B OINT PKT 1 UDPKT PACKET TP SCH ×2 (10:30→22:00)
[2017-08-30] MEDS: Z GUARD REMEDY 4 OZ OINT TP SCH ×4 (10:30→22:00)
[2017-08-30] MEDS: MINERAL OIL/PETROL OINT 396 GM JAR TP SCH ×2 (10:30→22:00)
--- NOTE | 2017-08-30 12:10 | NUR ---
KUB result received and informed to and ordered G tube to suction,start IVF D5NS @80cc/hr, repeat KUB,Chem 7 in am,GI consultation.New orders noted and carried out.
--- NOTE | 2017-08-30 13:00 | NUR ---
Started Gtube with intermittent suction,pt tolerated well and no complications noted.
[2017-08-30] MEDS ORDERED: IV D5/ 0.9% NACL 1,000 ML IV PRN (13:30)
--- NOTE | 2017-08-30 15:00 | NUR ---
[facility] pharmacist gave the authorization to get D5NS from the ekit.Started Iv fluids for hydration with D5NS @80cc/hr.Iv lIne is in right hand,intact and no complications noted.
--- NOTE | 2017-08-30 16:00 | NUR ---
Called (GI oncall) for GI consultation,Dr marin and seen the pt and ordered CT abdomen/pelvis with PO contrast to rule out small bowel obstruction.New orders noted and carried out.
--- NOTE | 2017-08-30 16:23 | NUR ---
Called the admitting dept to confirm if we need new account for the pt for CT scan,said will call back.Waiting for the call back.
--- NOTE | 2017-08-30 19:11 | NUR ---
Per Ashli from admitting dept,use the same account no for CT.
[2017-08-30 20:12] VITALS: BP 132/80
[2017-08-30] MEDS: POLYETHYLENE GLYCOL 3350 17 GM POWD.PACK GT SCH (21:00)
[2017-08-30] MEDS: CRANBERRY GT SCH (21:00)
[2017-08-30] MEDS: MULTIVIT, IRON, MIN NO. 8, FA 1 TAB GT SCH (21:00)
[2017-08-30] MEDS: ENOXAPARIN SODIUM 40 MG/0.4 ML DISP.SYRIN SQ SCH (21:00)
[2017-08-30] MEDS: ZINC SULFATE 220 MG CAPSULE PO SCH (21:00)
[2017-08-30] MEDS: ATORVASTATIN CALCIUM 20MG TABLET GT SCH (21:50)
--- NOTE | 2017-08-31 01:40 | NUR ---
Patient complains of generalized body pain on a pain scale of 10/10 and patient is requesting for pain medication. Patient is NPO for CT abdomen in AM and with order to hold medications via GT d/t dislodgement. Notified DNP Veena with new order of Morphine 6mg IVP q4hrs PRN until able to resume normal regimen. Vitals signs noted as 143/95, R18, P83. Administered morphine as ordered. Will continue to monitor and assess for pain.
[2017-08-31] MEDS ORDERED: MORPHINE SULFATE INJ 2 MG/ML DISP.SYRIN ONE (01:48)
[2017-08-31] MEDS ORDERED: MORPHINE SULFATE INJ 10 MG/ML DISP.SYRIN IV PRN (02:00)
[2017-08-31 07:22] LABS: CALCIUM, SERUM 8.8 mg/dL (8.5-10.1); CREATININE 0.7 mg/dL (0.6-1.3); POTASSIUM 4.1 mmol/L (3.5-5.1)
[2017-08-31 08:08] VITALS: BP 153/95
[2017-08-31] MEDS ORDERED: MORPHINE SULFATE INJ 2 MG/ML DISP.SYRIN IV PRN (08:10)
[2017-08-31] MEDS: CALCIUM CARBONATE 500 MG TAB.CHEW GT SCH ×3 (09:00→17:13)
[2017-08-31] MEDS: CLOPIDOGREL BISULFATE 75 MG TABLET GT SCH (09:00)
[2017-08-31] MEDS: PROSOURCE / PROSTAT (PYXIS) 30 ML UDC GT SCH ×3 (09:00→17:12)
[2017-08-31] MEDS: NYSTATIN/TRIAMCIN 15 GM CREAM 15 GM TUBE TP SCH ×2 (09:00→20:25)
[2017-08-31] MEDS: METHADONE HCL 10 MG TABLET GT SCH (09:00)
[2017-08-31] MEDS: ENSURE ENLIVE CHOC 237 ML CAN PO SCH ×3 (09:00→17:13)
[2017-08-31] MEDS: ZINC OXIDE 30 GM TUBE TP SCH ×2 (09:00→20:25)
[2017-08-31] MEDS: MINERAL OIL/PETROL OINT 396 GM JAR TP SCH ×2 (09:00→20:25)
[2017-08-31] MEDS: CALCITRIOL 0.25 MCG CAPSULE PO SCH (09:00)
[2017-08-31] MEDS: GABAPENTIN 300 MG CAPSULE GT SCH ×3 (09:00→17:12)
[2017-08-31] MEDS: FAMOTIDINE (20 MG) 20 MG TABLET GT SCH ×2 (09:00→20:24)
[2017-08-31] MEDS: ACIDOPHILUS/BULGARICUS 1 EACH TAB.CHEW GT SCH ×3 (09:00→17:12)
[2017-08-31] MEDS: ESCITALOPRAM OXALATE (10 MG) 10 MG TABLET GT SCH (09:00)
[2017-08-31] MEDS: ASCORBIC ACID 500 MG TABLET GT SCH ×2 (09:00→17:13)
[2017-08-31] MEDS: BACLOFEN (10 MG) 10 MG TABLET GT SCH ×4 (09:00→20:24)
[2017-08-31] MEDS: METOPROLOL TARTRATE 25 MG TABLET GT SCH ×2 (09:00→17:12)
[2017-08-31] MEDS: HYDROGEL DRESSING 90 GM TUBE TP SCH ×2 (09:00→20:25)
[2017-08-31] MEDS: NYSTATIN/TRIAMCIN CREAM 15 GM TUBE TP SCH ×6 (09:00→20:25)
[2017-08-31] MEDS: Z GUARD REMEDY 4 OZ OINT TP SCH ×4 (09:00→20:25)
[2017-08-31] MEDS: HYDROCODONE/APAP 10/325MG 1 EA TABLET GT SCH ×2 (09:00→20:24)
[2017-08-31] MEDS: BACI/NEOM/POLY B OINT PKT 1 UDPKT PACKET TP SCH ×2 (09:00→20:25)
[2017-08-31] MEDS ORDERED: ONDANSETRON HCL/PF 4 MG/2 ML VIAL ONE (11:26)
[2017-08-31] MEDS: ONDANSETRON HCL/PF 4 MG/2 ML VIAL IVP PRN ×2 (11:30→19:35)
[2017-08-31] MEDS ORDERED: DIATR MEGLU/DIATRIZOATE SODIUM 30 ML BOTTLE (GASTROGRAPHIN) ONE (12:51)
[2017-08-31] MEDS ORDERED: IOHEXOL-300 100 ML VIAL IV ONE (16:01)
[2017-08-31 20:02] VITALS: BP 119/77
[2017-08-31] MEDS: ZINC SULFATE 220 MG CAPSULE PO SCH (20:24)
[2017-08-31] MEDS: POLYETHYLENE GLYCOL 3350 17 GM POWD.PACK GT SCH (20:24)
[2017-08-31] MEDS: MULTIVIT, IRON, MIN NO. 8, FA 1 TAB GT SCH (20:24)
[2017-08-31] MEDS: CRANBERRY GT SCH (20:24)
[2017-08-31] MEDS: ENOXAPARIN SODIUM 40 MG/0.4 ML DISP.SYRIN SQ SCH (20:25)
[2017-08-31] MEDS: MAGNESIUM HYDROXIDE 30 ML UDC GT PRN (20:26)
[2017-08-31] MEDS: ATORVASTATIN CALCIUM 20MG TABLET GT SCH (21:08)
[2017-09-01 07:30] VITALS: BP 133/77
[2017-09-01] MEDS: ACIDOPHILUS/BULGARICUS 1 EACH TAB.CHEW GT SCH ×3 (08:56→17:00)
[2017-09-01] MEDS: ESCITALOPRAM OXALATE (10 MG) 10 MG TABLET GT SCH (08:57)
[2017-09-01] MEDS: BACLOFEN (10 MG) 10 MG TABLET GT SCH ×4 (08:57→20:21)
[2017-09-01] MEDS: METOPROLOL TARTRATE 25 MG TABLET GT SCH ×2 (08:58→17:00)
[2017-09-01] MEDS: GABAPENTIN 300 MG CAPSULE GT SCH ×3 (08:59→17:00)
[2017-09-01] MEDS: METHADONE HCL 10 MG TABLET GT SCH (08:59)
[2017-09-01] MEDS: HYDROGEL DRESSING 90 GM TUBE TP SCH ×2 (09:00→20:22)
[2017-09-01] MEDS: HYDROCODONE/APAP 10/325MG 1 EA TABLET GT SCH ×2 (09:00→20:26)
[2017-09-01] MEDS: Z GUARD REMEDY 4 OZ OINT TP SCH ×4 (09:00→20:25)
[2017-09-01] MEDS: NYSTATIN/TRIAMCIN CREAM 15 GM TUBE TP SCH ×6 (09:00→20:22)
[2017-09-01] MEDS: MINERAL OIL/PETROL OINT 396 GM JAR TP SCH ×2 (09:00→20:22)
[2017-09-01] MEDS: NYSTATIN/TRIAMCIN 15 GM CREAM 15 GM TUBE TP SCH ×2 (09:00→20:22)
[2017-09-01] MEDS: BACI/NEOM/POLY B OINT PKT 1 UDPKT PACKET TP SCH ×2 (09:00→20:22)
[2017-09-01] MEDS: FAMOTIDINE (20 MG) 20 MG TABLET GT SCH ×2 (09:00→20:21)
[2017-09-01] MEDS: ZINC OXIDE 30 GM TUBE TP SCH ×2 (09:00→20:25)
[2017-09-01] MEDS: PROSOURCE / PROSTAT (PYXIS) 30 ML UDC GT SCH ×3 (09:01→17:00)
[2017-09-01] MEDS: CALCIUM CARBONATE 500 MG TAB.CHEW GT SCH ×3 (09:01→17:00)
[2017-09-01] MEDS: CLOPIDOGREL BISULFATE 75 MG TABLET GT SCH (09:01)
[2017-09-01] MEDS: ASCORBIC ACID 500 MG TABLET GT SCH ×2 (09:02→17:00)
[2017-09-01] MEDS: CALCITRIOL 0.25 MCG CAPSULE PO SCH (09:02)
[2017-09-01] MEDS: ENSURE ENLIVE CHOC 237 ML CAN PO SCH ×3 (09:16→17:00)
--- NOTE | 2017-09-01 14:47 | NUR ---
INTERDISCIPLINARY TEAM CONFERENCE (IDT) was held today. Resident's alfpfx-fe-jyh was unable to attend. Dr. Ugarte and the interdisciplinary team reviewed the current plan of care in detail. Orders as well as treatment and medications were reviewed. No new orders were given.
[2017-09-01] MEDS: CRANBERRY GT SCH (20:21)
[2017-09-01] MEDS: MULTIVIT, IRON, MIN NO. 8, FA 1 TAB GT SCH (20:21)
[2017-09-01] MEDS: ZINC SULFATE 220 MG CAPSULE PO SCH (20:21)
[2017-09-01] MEDS: POLYETHYLENE GLYCOL 3350 17 GM POWD.PACK GT SCH (20:21)
[2017-09-01] MEDS: ENOXAPARIN SODIUM 40 MG/0.4 ML DISP.SYRIN SQ SCH (20:22)
[2017-09-01] MEDS: ATORVASTATIN CALCIUM 20MG TABLET GT SCH (21:17)
[2017-09-01] MEDS: MAGNESIUM HYDROXIDE 30 ML UDC GT PRN (21:17)
[2017-09-02 04:30] VITALS: BP 121/70
[2017-09-02 08:00] VITALS: BP 123/73
[2017-09-02] MEDS: NYSTATIN/TRIAMCIN 15 GM CREAM 15 GM TUBE TP SCH ×2 (09:00→21:55)
[2017-09-02] MEDS: HYDROGEL DRESSING 90 GM TUBE TP SCH ×2 (09:00→21:54)
[2017-09-02] MEDS: ZINC OXIDE 30 GM TUBE TP SCH ×2 (09:00→21:55)
[2017-09-02] MEDS: NYSTATIN/TRIAMCIN CREAM 15 GM TUBE TP SCH ×6 (09:00→21:55)
[2017-09-02] MEDS: Z GUARD REMEDY 4 OZ OINT TP SCH ×4 (09:00→21:55)
[2017-09-02] MEDS: MINERAL OIL/PETROL OINT 396 GM JAR TP SCH ×2 (09:00→21:54)
[2017-09-02] MEDS: BACI/NEOM/POLY B OINT PKT 1 UDPKT PACKET TP SCH (09:00)
[2017-09-02] MEDS: ACIDOPHILUS/BULGARICUS 1 EACH TAB.CHEW GT SCH ×3 (09:29→17:43)
[2017-09-02] MEDS: BACLOFEN (10 MG) 10 MG TABLET GT SCH ×4 (09:30→21:53)
[2017-09-02] MEDS: ESCITALOPRAM OXALATE (10 MG) 10 MG TABLET GT SCH (09:30)
[2017-09-02] MEDS: METOPROLOL TARTRATE 25 MG TABLET GT SCH ×2 (09:31→17:00)
[2017-09-02] MEDS: METHADONE HCL 10 MG TABLET GT SCH (09:32)
[2017-09-02] MEDS: GABAPENTIN 300 MG CAPSULE GT SCH ×3 (09:32→17:44)
[2017-09-02] MEDS: HYDROCODONE/APAP 10/325MG 1 EA TABLET GT SCH ×2 (09:34→21:58)
[2017-09-02] MEDS: CLOPIDOGREL BISULFATE 75 MG TABLET GT SCH (09:34)
[2017-09-02] MEDS: FAMOTIDINE (20 MG) 20 MG TABLET GT SCH ×2 (09:34→21:54)
[2017-09-02] MEDS: PROSOURCE / PROSTAT (PYXIS) 30 ML UDC GT SCH ×3 (09:34→17:44)
[2017-09-02] MEDS: CALCIUM CARBONATE 500 MG TAB.CHEW GT SCH ×3 (09:35→17:44)
[2017-09-02] MEDS: CALCITRIOL 0.25 MCG CAPSULE PO SCH (09:35)
[2017-09-02] MEDS: ASCORBIC ACID 500 MG TABLET GT SCH ×2 (09:35→17:44)
[2017-09-02] MEDS: ENSURE ENLIVE CHOC 237 ML CAN PO SCH ×3 (09:50→17:44)
--- NOTE | 2017-09-02 19:50 | NUR ---
SUBACUTE RN NOTE: PATIENT RESTING IN BED, NO ACUTE DISTRESS NOTED. BREATHING EVEN AND UNLABORED, NO SOB NOTE. VENT SETTINGS IN PLACE. ISOLATION PRECAUTIONS OBSERVED. BED LOCKED AND IN LOWEST POSITION, CALL LIGHT IN REACH. WILL CONTINUE TO MONITOR.
[2017-09-02 20:00] VITALS: BP 92/56
[2017-09-02] MEDS: CRANBERRY GT SCH (21:51)
[2017-09-02] MEDS: POLYETHYLENE GLYCOL 3350 17 GM POWD.PACK GT SCH (21:53)
[2017-09-02] MEDS: ZINC SULFATE 220 MG CAPSULE PO SCH (21:54)
[2017-09-02] MEDS: ATORVASTATIN CALCIUM 20MG TABLET GT SCH (21:55)
[2017-09-02] MEDS: ENOXAPARIN SODIUM 40 MG/0.4 ML DISP.SYRIN SQ SCH (22:00)
[2017-09-02] MEDS: MULTIVIT, IRON, MIN NO. 8, FA 1 TAB GT SCH (22:00)
[2017-09-03 08:19] VITALS: BP 126/75
[2017-09-03] MEDS: ASCORBIC ACID 500 MG TABLET GT SCH ×2 (09:00→17:28)
[2017-09-03] MEDS: ZINC OXIDE 30 GM TUBE TP SCH ×2 (09:00→21:54)
[2017-09-03] MEDS: CALCIUM CARBONATE 500 MG TAB.CHEW GT SCH ×3 (09:00→17:28)
[2017-09-03] MEDS: ACIDOPHILUS/BULGARICUS 1 EACH TAB.CHEW GT SCH ×3 (09:00→17:27)
[2017-09-03] MEDS: PROSOURCE / PROSTAT (PYXIS) 30 ML UDC GT SCH ×3 (09:00→17:27)
[2017-09-03] MEDS: ENSURE ENLIVE CHOC 237 ML CAN PO SCH ×3 (09:00→17:28)
[2017-09-03] MEDS: METOPROLOL TARTRATE 25 MG TABLET GT SCH ×2 (09:00→17:00)
[2017-09-03] MEDS: HYDROCODONE/APAP 10/325MG 1 EA TABLET GT SCH ×2 (09:00→21:52)
[2017-09-03] MEDS: FAMOTIDINE (20 MG) 20 MG TABLET GT SCH ×2 (09:00→21:53)
[2017-09-03] MEDS: METHADONE HCL 10 MG TABLET GT SCH (09:00)
[2017-09-03] MEDS: CALCITRIOL 0.25 MCG CAPSULE PO SCH (09:00)
[2017-09-03] MEDS: GABAPENTIN 300 MG CAPSULE GT SCH ×3 (09:00→17:27)
[2017-09-03] MEDS: BACLOFEN (10 MG) 10 MG TABLET GT SCH ×4 (09:00→21:52)
[2017-09-03] MEDS: ESCITALOPRAM OXALATE (10 MG) 10 MG TABLET GT SCH (09:00)
[2017-09-03] MEDS: CLOPIDOGREL BISULFATE 75 MG TABLET GT SCH (09:00)
[2017-09-03] MEDS: MINERAL OIL/PETROL OINT 396 GM JAR TP SCH ×2 (11:00→21:53)
[2017-09-03] MEDS: NYSTATIN/TRIAMCIN 15 GM CREAM 15 GM TUBE TP SCH ×2 (11:00→21:54)
[2017-09-03] MEDS: HYDROGEL DRESSING 90 GM TUBE TP SCH ×2 (11:00→21:53)
[2017-09-03] MEDS: Z GUARD REMEDY 4 OZ OINT TP SCH ×4 (11:00→21:54)
[2017-09-03] MEDS: NYSTATIN/TRIAMCIN CREAM 15 GM TUBE TP SCH ×6 (11:00→21:54)
[2017-09-03 20:14] VITALS: BP 140/79
[2017-09-03] MEDS: CRANBERRY GT SCH (21:52)
[2017-09-03] MEDS: POLYETHYLENE GLYCOL 3350 17 GM POWD.PACK GT SCH (21:52)
[2017-09-03] MEDS: MULTIVIT, IRON, MIN NO. 8, FA 1 TAB GT SCH (21:53)
[2017-09-03] MEDS: ENOXAPARIN SODIUM 40 MG/0.4 ML DISP.SYRIN SQ SCH (21:53)
[2017-09-03] MEDS: ZINC SULFATE 220 MG CAPSULE PO SCH (21:53)
[2017-09-03] MEDS: ATORVASTATIN CALCIUM 20MG TABLET GT SCH (21:54)
[2017-09-04 07:29] VITALS: BP 160/84
[2017-09-04] MEDS: PROSOURCE / PROSTAT (PYXIS) 30 ML UDC GT SCH ×3 (09:00→17:00)
[2017-09-04] MEDS: METHADONE HCL 10 MG TABLET GT SCH (09:00)
[2017-09-04] MEDS: CALCITRIOL 0.25 MCG CAPSULE PO SCH (09:00)
[2017-09-04] MEDS: METOPROLOL TARTRATE 25 MG TABLET GT SCH ×2 (09:00→17:00)
[2017-09-04] MEDS: GABAPENTIN 300 MG CAPSULE GT SCH ×3 (09:00→17:00)
[2017-09-04] MEDS: CALCIUM CARBONATE 500 MG TAB.CHEW GT SCH ×3 (09:00→17:00)
[2017-09-04] MEDS: ENSURE ENLIVE CHOC 237 ML CAN PO SCH ×3 (09:00→17:00)
[2017-09-04] MEDS: ESCITALOPRAM OXALATE (10 MG) 10 MG TABLET GT SCH (09:00)
[2017-09-04] MEDS: ACIDOPHILUS/BULGARICUS 1 EACH TAB.CHEW GT SCH ×3 (09:00→17:00)
[2017-09-04] MEDS: ASCORBIC ACID 500 MG TABLET GT SCH ×2 (09:00→17:00)
[2017-09-04] MEDS: FAMOTIDINE (20 MG) 20 MG TABLET GT SCH ×2 (09:00→21:40)
[2017-09-04] MEDS: HYDROCODONE/APAP 10/325MG 1 EA TABLET GT SCH ×2 (09:00→21:40)
[2017-09-04] MEDS: CLOPIDOGREL BISULFATE 75 MG TABLET GT SCH (09:00)
[2017-09-04] MEDS: BACLOFEN (10 MG) 10 MG TABLET GT SCH ×4 (09:00→21:38)
[2017-09-04] MEDS: NYSTATIN/TRIAMCIN 15 GM CREAM 15 GM TUBE TP SCH ×2 (11:00→21:41)
[2017-09-04] MEDS: ZINC OXIDE 30 GM TUBE TP SCH ×2 (11:00→21:42)
[2017-09-04] MEDS: NYSTATIN/TRIAMCIN CREAM 15 GM TUBE TP SCH ×6 (11:00→21:41)
[2017-09-04] MEDS: Z GUARD REMEDY 4 OZ OINT TP SCH ×4 (11:00→21:42)
[2017-09-04] MEDS: MINERAL OIL/PETROL OINT 396 GM JAR TP SCH ×2 (11:00→21:41)
[2017-09-04] MEDS: HYDROGEL DRESSING 90 GM TUBE TP SCH ×2 (11:00→21:41)
--- NOTE | 2017-09-04 13:27 | NUR ---
Relayed CT scan abdomen pelvis result to Dr. Walker. Received order for urology consult. Notified social studies teacher Mayra.
--- NOTE | 2017-09-04 13:44 | NUR ---
Urologist Dr Mancia said he will come to see pt. Relayed CT scan abdomen pelvis to him.
--- NOTE | 2017-09-04 13:45 | NUR ---
RAVI informed by charge nurse that resident in need of a urology consult. Called Dr. Arellano (urologist) and he stated he is air traffic control specialist today. RAVI forwarded call to charge nurse.
[2017-09-04 20:04] VITALS: BP 98/80
[2017-09-04] MEDS: CRANBERRY GT SCH (21:37)
[2017-09-04] MEDS: POLYETHYLENE GLYCOL 3350 17 GM POWD.PACK GT SCH (21:39)
[2017-09-04] MEDS: ZINC SULFATE 220 MG CAPSULE PO SCH (21:40)
[2017-09-04] MEDS: MULTIVIT, IRON, MIN NO. 8, FA 1 TAB GT SCH (21:40)
[2017-09-04] MEDS: ENOXAPARIN SODIUM 40 MG/0.4 ML DISP.SYRIN SQ SCH (21:41)
[2017-09-04] MEDS: ATORVASTATIN CALCIUM 20MG TABLET GT SCH (21:42)
--- NOTE | 2017-09-04 23:00 | NUR ---
RN NOTES Seen by Dr. Arellano with new order for UA C/S. Urine collected and sent to lab.
--- NOTE | 2017-09-05 08:26 | NUR ---
Pt's eyes are were open but he was not responsive even to painful stimuli. Checked vital signs BP 120/83 HR 114 T 97.7F R 18 O2 sat 95%. Pt was suctioned by RT and he obtained a moderate amount of light yellowish secretions. Pt made eye contact and smiled, but was lethargic. According to night charge nurse's endorsement, pt was confused last night. He was seen by urologist and UA was ordered. Notified Dr. Walker. Received order to do CBC, CMP, ABG.
[2017-09-05 08:34] VITALS: BP 120/83
[2017-09-05] MEDS: BACLOFEN (10 MG) 10 MG TABLET GT SCH ×4 (09:00→21:30)
[2017-09-05] MEDS: FAMOTIDINE (20 MG) 20 MG TABLET GT SCH ×2 (09:00→21:31)
[2017-09-05] MEDS: CALCITRIOL 0.25 MCG CAPSULE PO SCH (09:00)
[2017-09-05] MEDS: Z GUARD REMEDY 4 OZ OINT TP SCH ×4 (09:00→21:34)
[2017-09-05] MEDS: MINERAL OIL/PETROL OINT 396 GM JAR TP SCH ×2 (09:00→21:33)
[2017-09-05] MEDS: NYSTATIN/TRIAMCIN CREAM 15 GM TUBE TP SCH ×6 (09:00→21:33)
[2017-09-05] MEDS: GABAPENTIN 300 MG CAPSULE GT SCH ×3 (09:00→17:00)
[2017-09-05] MEDS: CALCIUM CARBONATE 500 MG TAB.CHEW GT SCH ×3 (09:00→17:00)
[2017-09-05] MEDS: CLOPIDOGREL BISULFATE 75 MG TABLET GT SCH (09:00)
[2017-09-05] MEDS: METHADONE HCL 10 MG TABLET GT SCH (09:00)
[2017-09-05] MEDS: PROSOURCE / PROSTAT (PYXIS) 30 ML UDC GT SCH ×3 (09:00→17:00)
[2017-09-05] MEDS: ESCITALOPRAM OXALATE (10 MG) 10 MG TABLET GT SCH (09:00)
[2017-09-05] MEDS: METOPROLOL TARTRATE 25 MG TABLET GT SCH ×2 (09:00→17:00)
[2017-09-05] MEDS: HYDROCODONE/APAP 10/325MG 1 EA TABLET GT SCH ×2 (09:00→21:00)
[2017-09-05] MEDS: NYSTATIN/TRIAMCIN 15 GM CREAM 15 GM TUBE TP SCH ×2 (09:00→21:34)
[2017-09-05] MEDS: ENSURE ENLIVE CHOC 237 ML CAN PO SCH ×3 (09:00→17:00)
[2017-09-05] MEDS: ZINC OXIDE 30 GM TUBE TP SCH ×2 (09:00→21:35)
[2017-09-05] MEDS: ASCORBIC ACID 500 MG TABLET GT SCH ×2 (09:00→17:00)
[2017-09-05] MEDS: HYDROGEL DRESSING 90 GM TUBE TP SCH ×2 (09:00→21:33)
[2017-09-05] MEDS: ACIDOPHILUS/BULGARICUS 1 EACH TAB.CHEW GT SCH ×3 (09:00→17:00)
[2017-09-05 09:04] LABS: ABG BASE EXCESS 9.6 mmol/L; ABG OXYGEN SATURATION 93.6 % (92.0-98.5); ABG PCO2 80.3 mmHg (35.0-45.0); ABG PH 7.296 (7.350-7.450); ABG PO2 73.9 mmHg (75.0-100.0); COHb 0.2 % (0.5-1.5); MetHb 0.5 % (0.0-1.5); O2Hb 92.9 % (94.0-97.0); SITE, ABG Right Radial; VENT MODE, BG COOL AEROSOL 28%
--- NOTE | 2017-09-05 09:35 | NUR ---
PT PLACED ON MECHANICAL VENTILATOR POST ABG DUE TO [place]. PT PLACED ON VENT SETTINGS ORDERED BY DR AMAYA. AC 14 VT 550 PEEP+5 FIO2 35% MECHANICAL VENTILATOR PLUGGED INTO RED OUTLET. ALARMS SET AND AUDIBLE THROUGHOUT SUBACUTE UNIT. AMBUBAG AND SPARE TRACH AT [facility]. ABG TO FOLLOW IN 2 HRS Addendum: 09/05/17 at 0939 by CHIDI DODSON RT Amended: Links added.
[2017-09-05 09:48] LABS: BASOPHILS % (AUTO) 0.3 % (0.0-2.0); EOSINOPHILS % (AUTO) 0.1 % (0.0-6.0); HEMATOCRIT 32 % (39-51); HEMOGLOBIN 10.4 g/dL (13.5-17.5); LYMPHOCYTES # (AUTO) 1.1 /CMM (0.8-4.8); LYMPHOCYTES % (AUTO) 7.3 % (20.0-44.0); MEAN CORPUSCULAR HEMOGLOBIN 26 PG (26.0-33.0); MEAN CORPUSCULAR HGB CONC 33 g/dl (31.0-36.0); MEAN CORPUSCULAR VOLUME 80 fL (80-96); MONOCYTES # (AUTO) 1.3 /CMM (0.1-1.30); MONOCYTES % (AUTO) 8.6 % (2.0-12.0); NEUTROPHILS # (AUTO) 12.8 /CMM (1.8-8.9); NEUTROPHILS % (AUTO) 83.7 % (43.0-81.0); PLATELET COUNT (AUTO) 413 /CMM (150-450); RDW COEFFICIENT OF VARIATION 18.3 (11.5-15.0); RED BLOOD CELL COUNT(AUTO) 3.96 MIL/uL (4.5-6.0); WHITE BLOOD COUNT (AUTO) 15.2 K/uL (4.3-11.0)
[2017-09-05 10:01] LABS: CALCIUM, SERUM 9.4 mg/dL (8.5-10.1); CREATININE 0.9 mg/dL (0.6-1.3); POTASSIUM 5.2 mmol/L (3.5-5.1)
--- NOTE | 2017-09-05 10:04 | NUR ---
Seen by Dr. Ugarte. Notified him that pt has been confused last night and lethargic this morning. Labs still pending. RT Kendrick relayed ABG result to Dr. Ugarte. Dr. Ugarte ordered to place pt on mechanical ventilator with setting of AC 14 VT 550 FiO2 35% Peep +5. Pt still lethargic, opens eyes for a few seconds only when his name is called out. Addendum: 09/05/17 at 1148 by WINIFRED GARCÍA RN Notified Dr. Ugarte that pt was seen by urologist and urologist is planning to do surgery for pt which he will discuss with Dr. Walker. Also notified him that urologist mentioned he is planning to place a nephrostomy tube.
[2017-09-05 10:07] LABS: ALBUMIN 2.5 g/dL (3.4-5.0); BILIRUBIN,TOTAL 0.1 mg/dL (0.2-1.0); TOTAL PROTEIN, SERUM 9.3 g/dL (6.4-8.2)
--- NOTE | 2017-09-05 10:22 | NUR ---
Relayed CBC and CMP results to Dr. Walker.
[2017-09-05 10:44] LABS: LYMPHOCYTES % (MANUAL) 9 % (16-48); MONOCYTES % (MANUAL) 8 % (0-11.0); NEUTROPHILS % (MANUAL) 83 (42-76)
--- NOTE | 2017-09-05 11:00 | NUR ---
Pt opens his eyes for a few seconds when his name is called, but pt still lethargic. BP 120/80 HR 80 T 99 R 14 O2 sat 100%.
[2017-09-05 11:35] LABS: ABG OXYGEN SATURATION 98.5 % (92.0-98.5); ABG PCO2 41.4 mmHg (35.0-45.0); ABG PH 7.528 (7.350-7.450); ABG PO2 131.9 mmHg (75.0-100.0); AaDO2 69.5 mmHg; COHb 0.3 % (0.5-1.5); MetHb 0.4 % (0.0-1.5); O2Hb 97.8 % (94.0-97.0); PEEP,BG 5 cm H2O; SITE, ABG Right Radial; VENT MODE, BG AC 14 550 35% +5; VT, ABG 550 mL
--- NOTE | 2017-09-05 11:39 | NUR ---
ABG result pH 7.528 pCO2 41.4 pO2 131.9 HCO3 33.[address] Henry Received order to decrease VT to 500. Notified RT Kendrick. Addendum: 09/05/17 at 1140 by WINIFRED GARCÍA RN Relayed CBC and CMP result to Dr. Ugarte.
--- NOTE | 2017-09-05 12:02 | NUR ---
Notified Vilma Marley of change in condition and new orders. Also notified her that urologist saw pt last night and planning on doing surgery or placing nephrostomy tube.
--- NOTE | 2017-09-05 12:10 | NUR ---
Dr. Ugarte ordered Levofloxacin 500 mg IV q 24 hours for sepsis of unknown origin. Urine culture result pending.
[2017-09-05] MEDS: LEVOFLOXACIN 500 MG /D5W 100ML 100 ML IV SCH (14:47)
--- NOTE | 2017-09-05 17:53 | NUR ---
treatments for RT and LT buttocks wound with MASD not done due to patient was lethargic and at risk for desaturation when repositioning . Kept patient comfortable . Charge Nurse made aware.
--- NOTE | 2017-09-05 18:03 | NUR ---
Notified Dr. Curiel that pt has been lethargic, is now on a mechanical ventilator, WBC 15 and now on Levaquin. Notified him that pt's BP 95/63 HR [address] Curiel ordered to give NS 1L IV bolus x1. Notified Vilma IV Levaquin and NS.
--- NOTE | 2017-09-05 18:42 | NUR ---
Notified Dr. Curiel that pt has not been eating today, pt still lethargic. He opens his eyes for a second when his name is called. Pt was given Ensure TID via GT. NS IV bolus being administered. Dr. Curiel ordered to give NS 100 mL/hr IV after the bolus.
--- NOTE | 2017-09-05 19:12 | NUR ---
Wound treatments done. Pt was awake during and after wound treatment.
[2017-09-05 20:25] VITALS: BP 97/64
[2017-09-05] MEDS: POLYETHYLENE GLYCOL 3350 17 GM POWD.PACK GT SCH (21:30)
[2017-09-05] MEDS: CRANBERRY GT SCH (21:30)
[2017-09-05] MEDS: ENOXAPARIN SODIUM 40 MG/0.4 ML DISP.SYRIN SQ SCH (21:32)
[2017-09-05] MEDS: ZINC SULFATE 220 MG CAPSULE PO SCH (21:32)
[2017-09-05] MEDS: MULTIVIT, IRON, MIN NO. 8, FA 1 TAB GT SCH (21:32)
[2017-09-05] MEDS: HYDROGEN PEROXIDE 480 ML BOTTLE TP SCH (21:33)
[2017-09-05] MEDS: ATORVASTATIN CALCIUM 20MG TABLET GT SCH (21:34)
[2017-09-06] MEDS: GABAPENTIN 300 MG CAPSULE GT SCH ×3 (09:00→17:00)
[2017-09-06] MEDS: ZINC OXIDE 30 GM TUBE TP SCH ×2 (09:00→22:30)
[2017-09-06] MEDS: ACIDOPHILUS/BULGARICUS 1 EACH TAB.CHEW GT SCH ×3 (09:00→17:00)
[2017-09-06] MEDS: HYDROGEL DRESSING 90 GM TUBE TP SCH ×2 (09:00→22:30)
[2017-09-06] MEDS: HYDROGEN PEROXIDE 480 ML BOTTLE TP SCH ×2 (09:00→22:30)
[2017-09-06] MEDS: HYDROCODONE/APAP 10/325MG 1 EA TABLET GT SCH ×2 (09:00→21:53)
[2017-09-06] MEDS: ESCITALOPRAM OXALATE (10 MG) 10 MG TABLET GT SCH (09:00)
[2017-09-06] MEDS: MINERAL OIL/PETROL OINT 396 GM JAR TP SCH ×2 (09:00→21:53)
[2017-09-06] MEDS: Z GUARD REMEDY 4 OZ OINT TP SCH ×4 (09:00→22:30)
[2017-09-06] MEDS: ENSURE ENLIVE CHOC 237 ML CAN PO SCH ×3 (09:00→17:00)
[2017-09-06] MEDS: CLOPIDOGREL BISULFATE 75 MG TABLET GT SCH (09:00)
[2017-09-06] MEDS: NYSTATIN/TRIAMCIN 15 GM CREAM 15 GM TUBE TP SCH ×2 (09:00→22:30)
[2017-09-06] MEDS: CALCIUM CARBONATE 500 MG TAB.CHEW GT SCH ×3 (09:00→17:00)
[2017-09-06] MEDS: PROSOURCE / PROSTAT (PYXIS) 30 ML UDC GT SCH ×3 (09:00→17:00)
[2017-09-06] MEDS: CALCITRIOL 0.25 MCG CAPSULE PO SCH (09:00)
[2017-09-06] MEDS: METHADONE HCL 10 MG TABLET GT SCH (09:00)
[2017-09-06] MEDS: ASCORBIC ACID 500 MG TABLET GT SCH ×2 (09:00→17:00)
[2017-09-06] MEDS: BACLOFEN (10 MG) 10 MG TABLET GT SCH ×4 (09:00→21:52)
[2017-09-06] MEDS: METOPROLOL TARTRATE 25 MG TABLET GT SCH ×2 (09:00→17:00)
[2017-09-06] MEDS: FAMOTIDINE (20 MG) 20 MG TABLET GT SCH ×2 (09:00→21:53)
[2017-09-06] MEDS: NYSTATIN/TRIAMCIN CREAM 15 GM TUBE TP SCH ×6 (09:00→22:30)
[2017-09-06 13:16] VITALS: BP_SYST 119; BP_SYST 127; BP_DIAS 66; BP_DIAS 82
--- NOTE | 2017-09-06 13:17 | NUR ---
CARLI johnson with said will see the pt tomorrow for wound consultation of left lower buttock wound.
[2017-09-06] MEDS: LEVOFLOXACIN 500 MG /D5W 100ML 100 ML IV SCH (14:16)
--- NOTE | 2017-09-06 17:15 | NUR ---
Administered 0.9% NS IV to left forearm,good blood return and no signs of infiltration noted.
[2017-09-06] MEDS: CRANBERRY GT SCH (21:52)
[2017-09-06] MEDS: POLYETHYLENE GLYCOL 3350 17 GM POWD.PACK GT SCH (21:52)
[2017-09-06] MEDS: ENOXAPARIN SODIUM 40 MG/0.4 ML DISP.SYRIN SQ SCH (21:53)
[2017-09-06] MEDS: ATORVASTATIN CALCIUM 20MG TABLET GT SCH (21:53)
[2017-09-06] MEDS: ZINC SULFATE 220 MG CAPSULE PO SCH (21:53)
[2017-09-06] MEDS: MULTIVIT, IRON, MIN NO. 8, FA 1 TAB GT SCH (21:53)
[2017-09-06 22:01] VITALS: BP 115/65
[2017-09-07 07:36] VITALS: BP 135/83
--- NOTE | 2017-09-07 08:04 | NUR ---
RT PT RECEIVED TRACHED ON THE VENT WITH NOTED SETTINGS. PT IS AWAKE AND ALERT. VENT ALARMS ARE SET AND AUDIBLE WITH BVM BY BEDSIDE. ORTHO TECH CUFF PRESSURE NOTED. VENT IS PLUGGED INTO RED OUTLET. SX'D MODERATE THICK PALE YELLOW SECRETIONS. NO RESPIRATORY DISTRESS NOTED AT THIS TIME, WILL CONTINUE TO MONITOR. Addendum: 09/07/17 at 1614 by ESPERANZA HOOPER RT Amended: Links added.
[2017-09-07] MEDS: BACLOFEN (10 MG) 10 MG TABLET GT SCH ×4 (09:37→20:35)
[2017-09-07] MEDS: ACIDOPHILUS/BULGARICUS 1 EACH TAB.CHEW GT SCH ×3 (09:37→17:10)
[2017-09-07] MEDS: ESCITALOPRAM OXALATE (10 MG) 10 MG TABLET GT SCH (09:37)
[2017-09-07] MEDS: PROSOURCE / PROSTAT (PYXIS) 30 ML UDC GT SCH ×3 (09:38→17:10)
[2017-09-07] MEDS: CLOPIDOGREL BISULFATE 75 MG TABLET GT SCH (09:38)
[2017-09-07] MEDS: ENSURE ENLIVE CHOC 237 ML CAN PO SCH ×3 (09:38→17:11)
[2017-09-07] MEDS: GABAPENTIN 300 MG CAPSULE GT SCH ×3 (09:38→17:10)
[2017-09-07] MEDS: CALCITRIOL 0.25 MCG CAPSULE PO SCH (09:38)
[2017-09-07] MEDS: FAMOTIDINE (20 MG) 20 MG TABLET GT SCH ×2 (09:38→20:36)
[2017-09-07] MEDS: ASCORBIC ACID 500 MG TABLET GT SCH ×2 (09:38→17:11)
[2017-09-07] MEDS: CALCIUM CARBONATE 500 MG TAB.CHEW GT SCH ×3 (09:38→17:11)
[2017-09-07] MEDS: METOPROLOL TARTRATE 25 MG TABLET GT SCH ×2 (09:38→17:10)
[2017-09-07] MEDS: METHADONE HCL 10 MG TABLET GT SCH (09:38)
[2017-09-07] MEDS: HYDROCODONE/APAP 10/325MG 1 EA TABLET GT SCH ×2 (10:00→20:36)
[2017-09-07] MEDS: HYDROGEN PEROXIDE 480 ML BOTTLE TP SCH ×2 (11:00→20:36)
[2017-09-07] MEDS: NYSTATIN/TRIAMCIN CREAM 15 GM TUBE TP SCH ×6 (11:00→20:37)
[2017-09-07] MEDS: MINERAL OIL/PETROL OINT 396 GM JAR TP SCH ×2 (11:00→20:36)
[2017-09-07] MEDS: HYDROGEL DRESSING 90 GM TUBE TP SCH ×2 (11:00→20:36)
[2017-09-07] MEDS: ZINC OXIDE 30 GM TUBE TP SCH ×2 (11:00→20:37)
[2017-09-07] MEDS: Z GUARD REMEDY 4 OZ OINT TP SCH ×4 (11:00→20:37)
[2017-09-07] MEDS: NYSTATIN/TRIAMCIN 15 GM CREAM 15 GM TUBE TP SCH ×2 (11:00→20:37)
--- NOTE | 2017-09-07 11:33 | NUR ---
WOUND CARE CONSULT WOUND CARE RECEIVED CONSULT FOR LEFT BUTTOCK WOUND. WOUND CARE WILL DEFER CONSULT AND ALL TREATMENT PLANS TO SURGICAL TEAM WHO ARE FOLLOWING. DR ARANGO NOTIFIED OF CONSULT AND WILL SEE PATIENT FOR CONSULT. WILL SEE PRN.
--- NOTE | 2017-09-07 12:44 | NUR ---
Dr. Rafiq Diaz ordered to apply Petroleum dressing and Mepilex on reopened left ischial wound q shift for 30 days. He said he will debride pt's wounds on Monday09/11/17. Pt had the same site of wound in 2014. Addendum: 09/07/17 at 1250 by WINIFRED GARCÍA RN Left ischial wound was called left buttock wound # 2 in 2014.
--- NOTE | 2017-09-07 13:10 | NUR ---
Seen by SPARE HAND CARDING Peggy Hoffman. Received order to DC NS IV 100 mL/hr since pt is already eating by mouth.
[2017-09-07] MEDS: LEVOFLOXACIN 500 MG /D5W 100ML 100 ML IV SCH (14:00)
[2017-09-07] MEDS: POLYETHYLENE GLYCOL 3350 17 GM POWD.PACK GT SCH (20:35)
[2017-09-07] MEDS: CRANBERRY GT SCH (20:35)
[2017-09-07] MEDS: MULTIVIT, IRON, MIN NO. 8, FA 1 TAB GT SCH (20:36)
[2017-09-07] MEDS: ZINC SULFATE 220 MG CAPSULE PO SCH (20:36)
[2017-09-07] MEDS: ENOXAPARIN SODIUM 40 MG/0.4 ML DISP.SYRIN SQ SCH (20:36)
[2017-09-07] MEDS: PETROLATUM,WHITE PACKET 5 GM PACKET TP SCH (20:37)
[2017-09-07 21:04] VITALS: BP 117/73
[2017-09-07] MEDS: ATORVASTATIN CALCIUM 20MG TABLET GT SCH (21:26)
[2017-09-08 07:00] LABS: BASOPHILS # (AUTO) 0.2 /CMM (0.0-0.2); BASOPHILS % (AUTO) 2.1 % (0.0-2.0); EOSINOPHILS % (AUTO) 2.4 % (0.0-6.0); HEMATOCRIT 26 % (39-51); LYMPHOCYTES # (AUTO) 1.8 /CMM (0.8-4.8); LYMPHOCYTES % (AUTO) 21.6 % (20.0-44.0); MEAN CORPUSCULAR HEMOGLOBIN 25 PG (26.0-33.0); MEAN CORPUSCULAR HGB CONC 31 g/dl (31.0-36.0); MEAN CORPUSCULAR VOLUME 81 fL (80-96); MONOCYTES # (AUTO) 0.7 /CMM (0.1-1.30); MONOCYTES % (AUTO) 7.7 % (2.0-12.0); NEUTROPHILS # (AUTO) 5.7 /CMM (1.8-8.9); NEUTROPHILS % (AUTO) 66.2 % (43.0-81.0); PLATELET COUNT (AUTO) 441 /CMM (150-450); RDW COEFFICIENT OF VARIATION 19.9 (11.5-15.0); RED BLOOD CELL COUNT(AUTO) 3.19 MIL/uL (4.5-6.0); WHITE BLOOD COUNT (AUTO) 8.5 K/uL (4.3-11.0)
[2017-09-08 07:33] VITALS: BP 113/69
[2017-09-08] MEDS: ACIDOPHILUS/BULGARICUS 1 EACH TAB.CHEW GT SCH ×3 (09:13→17:00)
[2017-09-08] MEDS: METOPROLOL TARTRATE 25 MG TABLET GT SCH ×2 (09:14→17:00)
[2017-09-08] MEDS: BACLOFEN (10 MG) 10 MG TABLET GT SCH ×4 (09:14→20:28)
[2017-09-08] MEDS: FAMOTIDINE (20 MG) 20 MG TABLET GT SCH ×2 (09:14→20:29)
[2017-09-08] MEDS: CALCIUM CARBONATE 500 MG TAB.CHEW GT SCH ×3 (09:14→17:00)
[2017-09-08] MEDS: PROSOURCE / PROSTAT (PYXIS) 30 ML UDC GT SCH ×3 (09:14→17:00)
[2017-09-08] MEDS: CLOPIDOGREL BISULFATE 75 MG TABLET GT SCH (09:14)
[2017-09-08] MEDS: ESCITALOPRAM OXALATE (10 MG) 10 MG TABLET GT SCH (09:14)
[2017-09-08] MEDS: GABAPENTIN 300 MG CAPSULE GT SCH ×3 (09:14→17:00)
[2017-09-08] MEDS: METHADONE HCL 10 MG TABLET GT SCH (09:14)
[2017-09-08] MEDS: ASCORBIC ACID 500 MG TABLET GT SCH ×2 (09:15→17:00)
[2017-09-08] MEDS: CALCITRIOL 0.25 MCG CAPSULE PO SCH (09:15)
[2017-09-08] MEDS: ENSURE ENLIVE CHOC 237 ML CAN PO SCH ×3 (09:15→17:00)
--- NOTE | 2017-09-08 10:50 | NUR ---
CBC result relayed to HUBERT Cerrato noted.
[2017-09-08] MEDS: HYDROCODONE/APAP 10/325MG 1 EA TABLET GT SCH ×2 (11:30→20:29)
[2017-09-08] MEDS: NYSTATIN/TRIAMCIN 15 GM CREAM 15 GM TUBE TP SCH ×2 (12:30→20:30)
[2017-09-08] MEDS: PETROLATUM,WHITE PACKET 5 GM PACKET TP SCH ×2 (12:30→20:30)
[2017-09-08] MEDS: MINERAL OIL/PETROL OINT 396 GM JAR TP SCH ×2 (12:30→20:29)
[2017-09-08] MEDS: ZINC OXIDE 30 GM TUBE TP SCH ×2 (12:30→20:30)
[2017-09-08] MEDS: Z GUARD REMEDY 4 OZ OINT TP SCH ×4 (12:30→20:30)
[2017-09-08] MEDS: NYSTATIN/TRIAMCIN CREAM 15 GM TUBE TP SCH ×6 (12:30→20:30)
[2017-09-08] MEDS: HYDROGEL DRESSING 90 GM TUBE TP SCH ×2 (12:30→20:29)
[2017-09-08] MEDS: HYDROGEN PEROXIDE 480 ML BOTTLE TP SCH ×2 (12:30→20:29)
[2017-09-08] MEDS: LEVOFLOXACIN 500 MG /D5W 100ML 100 ML IV SCH (14:11)
[2017-09-08] MEDS: CRANBERRY GT SCH (20:28)
[2017-09-08] MEDS: POLYETHYLENE GLYCOL 3350 17 GM POWD.PACK GT SCH (20:28)
[2017-09-08] MEDS: ZINC SULFATE 220 MG CAPSULE PO SCH (20:29)
[2017-09-08] MEDS: MULTIVIT, IRON, MIN NO. 8, FA 1 TAB GT SCH (20:29)
[2017-09-08] MEDS: ENOXAPARIN SODIUM 40 MG/0.4 ML DISP.SYRIN SQ SCH (20:29)
[2017-09-08] MEDS: ATORVASTATIN CALCIUM 20MG TABLET GT SCH (21:11)
[2017-09-08 21:46] VITALS: BP 121/76
[2017-09-09 07:57] VITALS: BP 137/93
[2017-09-09] MEDS: PETROLATUM,WHITE PACKET 5 GM PACKET TP SCH ×2 (09:00→21:00)
[2017-09-09] MEDS: HYDROCODONE/APAP 10/325MG 1 EA TABLET GT SCH ×2 (09:00→20:33)
[2017-09-09] MEDS: ESCITALOPRAM OXALATE (10 MG) 10 MG TABLET GT SCH (09:03)
[2017-09-09] MEDS: BACLOFEN (10 MG) 10 MG TABLET GT SCH ×4 (09:03→20:33)
[2017-09-09] MEDS: ACIDOPHILUS/BULGARICUS 1 EACH TAB.CHEW GT SCH ×3 (09:03→17:48)
[2017-09-09] MEDS: PROSOURCE / PROSTAT (PYXIS) 30 ML UDC GT SCH ×3 (09:04→17:48)
[2017-09-09] MEDS: CALCITRIOL 0.25 MCG CAPSULE PO SCH (09:04)
[2017-09-09] MEDS: GABAPENTIN 300 MG CAPSULE GT SCH ×3 (09:04→17:48)
[2017-09-09] MEDS: CALCIUM CARBONATE 500 MG TAB.CHEW GT SCH ×3 (09:04→17:48)
[2017-09-09] MEDS: METHADONE HCL 10 MG TABLET GT SCH (09:04)
[2017-09-09] MEDS: CLOPIDOGREL BISULFATE 75 MG TABLET GT SCH (09:04)
[2017-09-09] MEDS: FAMOTIDINE (20 MG) 20 MG TABLET GT SCH ×2 (09:04→20:34)
[2017-09-09] MEDS: METOPROLOL TARTRATE 25 MG TABLET GT SCH ×2 (09:04→17:48)
[2017-09-09] MEDS: ASCORBIC ACID 500 MG TABLET GT SCH ×2 (09:04→17:48)
[2017-09-09] MEDS: ENSURE ENLIVE CHOC 237 ML CAN PO SCH ×3 (09:05→17:48)
[2017-09-09] MEDS: HYDROGEN PEROXIDE 480 ML BOTTLE TP SCH ×2 (10:00→21:00)
[2017-09-09] MEDS: MINERAL OIL/PETROL OINT 396 GM JAR TP SCH ×2 (10:00→21:00)
[2017-09-09] MEDS: LEVOFLOXACIN 500 MG /D5W 100ML 100 ML IV SCH (14:00)
--- NOTE | 2017-09-09 18:00 | NUR ---
Notified SUPERINTENDENT SEED MILL Nera regarding urine c and s results, patient currently on levofloxacin IV for sepsis. Patient is resistant to levofloxacin. Patient has no fever, urine output cloudy, no blood in urine at this time. SUPERINTENDENT SEED MILL Nera ordered to discontinue levofloxacin IV start gentamicin per pharmacy to dose. Orders noted and carried out. Patient closely monitored.
[2017-09-09 19:35] VITALS: BP 132/90
[2017-09-09] MEDS: POLYETHYLENE GLYCOL 3350 17 GM POWD.PACK GT SCH (20:33)
[2017-09-09] MEDS: CRANBERRY GT SCH (20:33)
[2017-09-09] MEDS: ZINC SULFATE 220 MG CAPSULE PO SCH (20:34)
[2017-09-09] MEDS: MULTIVIT, IRON, MIN NO. 8, FA 1 TAB GT SCH (20:34)
[2017-09-09] MEDS: MAGNESIUM HYDROXIDE 30 ML UDC GT PRN (20:36)
[2017-09-09] MEDS: NYSTATIN/TRIAMCIN CREAM 15 GM TUBE TP SCH ×3 (21:00)
[2017-09-09] MEDS: ENOXAPARIN SODIUM 40 MG/0.4 ML DISP.SYRIN SQ SCH (21:00)
[2017-09-09] MEDS: NYSTATIN/TRIAMCIN 15 GM CREAM 15 GM TUBE TP SCH (21:00)
[2017-09-09] MEDS: Z GUARD REMEDY 4 OZ OINT TP SCH ×2 (21:00)
[2017-09-09] MEDS: HYDROGEL DRESSING 90 GM TUBE TP SCH (21:00)
[2017-09-09] MEDS: ATORVASTATIN CALCIUM 20MG TABLET GT SCH (22:00)
--- NOTE | 2017-09-10 05:30 | NUR ---
PT REC'D TRACHED ON [facility] VENT SETTINGS CHARTED. NO RESP DISTRESS OR SOB NOTED. PT STABLE AT THIS TIME. SX'D FOR THICK MOD AMT OF YELLOW SECRETIONS. TRACH IS MIDLINE AND PATENT. ALARMS ARE SET AND AUDIBLE. VENT PLUGGED INTO RED OUTLET. AMBU BAG BEDSIDE. WILL CONTINUE TO MONITOR Addendum: 09/10/17 at 0626 by CAITLIN SOTO RT Amended: Links added.
--- NOTE | 2017-09-10 07:04 | NUR ---
Danyel from [facility] dosed Gentamicin 140mg q12hrs iv pb. trough to be drawn on Monday09-11-17 at 1030AM
[2017-09-10 07:55] VITALS: BP 128/75
[2017-09-10] MEDS: GABAPENTIN 300 MG CAPSULE GT SCH ×3 (09:00→17:00)
[2017-09-10] MEDS: METOPROLOL TARTRATE 25 MG TABLET GT SCH ×2 (09:00→17:00)
[2017-09-10] MEDS: ENSURE ENLIVE CHOC 237 ML CAN PO SCH ×3 (09:00→17:00)
[2017-09-10] MEDS: PROSOURCE / PROSTAT (PYXIS) 30 ML UDC GT SCH ×3 (09:00→17:00)
[2017-09-10] MEDS: FAMOTIDINE (20 MG) 20 MG TABLET GT SCH ×2 (09:00→21:50)
[2017-09-10] MEDS: CLOPIDOGREL BISULFATE 75 MG TABLET GT SCH (09:00)
[2017-09-10] MEDS: ASCORBIC ACID 500 MG TABLET GT SCH ×2 (09:00→17:00)
[2017-09-10] MEDS: METHADONE HCL 10 MG TABLET GT SCH (09:00)
[2017-09-10] MEDS: CALCITRIOL 0.25 MCG CAPSULE PO SCH (09:00)
[2017-09-10] MEDS: CALCIUM CARBONATE 500 MG TAB.CHEW GT SCH ×3 (09:00→17:00)
[2017-09-10] MEDS: ESCITALOPRAM OXALATE (10 MG) 10 MG TABLET GT SCH (09:00)
[2017-09-10] MEDS: BACLOFEN (10 MG) 10 MG TABLET GT SCH ×4 (09:00→21:48)
[2017-09-10] MEDS: HYDROCODONE/APAP 10/325MG 1 EA TABLET GT SCH ×2 (09:00→21:50)
[2017-09-10] MEDS: ACIDOPHILUS/BULGARICUS 1 EACH TAB.CHEW GT SCH ×3 (09:00→17:00)
[2017-09-10] MEDS: Z GUARD REMEDY 4 OZ OINT TP SCH ×4 (10:00→21:00)
[2017-09-10] MEDS: HYDROGEN PEROXIDE 480 ML BOTTLE TP SCH ×2 (10:00→21:00)
[2017-09-10] MEDS: MINERAL OIL/PETROL OINT 396 GM JAR TP SCH ×2 (10:00→21:00)
[2017-09-10] MEDS: HYDROGEL DRESSING 90 GM TUBE TP SCH ×2 (10:00→21:00)
[2017-09-10] MEDS: NYSTATIN/TRIAMCIN CREAM 15 GM TUBE TP SCH ×6 (10:00→21:00)
[2017-09-10] MEDS: NYSTATIN/TRIAMCIN 15 GM CREAM 15 GM TUBE TP SCH ×2 (10:00→21:00)
[2017-09-10] MEDS: PETROLATUM,WHITE PACKET 5 GM PACKET TP SCH ×2 (10:00→21:00)
[2017-09-10] MEDS: GENTAMICIN 140 MG in IV D5W 100 ML IV SCH ×2 (11:00→23:00)
[2017-09-10 20:18] VITALS: BP 99/60
[2017-09-10] MEDS: POLYETHYLENE GLYCOL 3350 17 GM POWD.PACK GT SCH (21:48)
[2017-09-10] MEDS: CRANBERRY GT SCH (21:48)
[2017-09-10] MEDS: MULTIVIT, IRON, MIN NO. 8, FA 1 TAB GT SCH (21:50)
[2017-09-10] MEDS: ZINC SULFATE 220 MG CAPSULE PO SCH (21:51)
[2017-09-10] MEDS: ENOXAPARIN SODIUM 40 MG/0.4 ML DISP.SYRIN SQ SCH (21:52)
[2017-09-10] MEDS: ATORVASTATIN CALCIUM 20MG TABLET GT SCH (21:52)
--- NOTE | 2017-09-11 04:28 | NUR ---
PATIENT RECEIVED TRACHED ON MECHANICAL VENTILATION. AMBU BAG/BACK UP TRACH @ BEDSIDE. VENT PLUGGED INTO RED OUTLET. ALARMS ON AND AUDIBLE. SX DONE, TRACH SECURED AND PATENT AT ALL TIMES. TX TERRANCE WELL, NO ADVERSE REACTIONS NOTED. PATIENT MONITORED T/O SHIFT, NO DISTRESS NOTED. Addendum: 09/11/17 at 0428 by VERNELL CHRISTINE RT Amended: Links added. Addendum: 09/11/17 at 0432 by VERNELL CHRISTINE RT NO TX GIVEN. PATIENT CHARTING ERROR.
[2017-09-11 07:28] VITALS: BP 101/69
[2017-09-11] MEDS: NYSTATIN/TRIAMCIN CREAM 15 GM TUBE TP SCH ×6 (09:00→21:00)
[2017-09-11] MEDS: METOPROLOL TARTRATE 25 MG TABLET GT SCH ×2 (09:00→16:57)
[2017-09-11] MEDS: PROSOURCE / PROSTAT (PYXIS) 30 ML UDC GT SCH ×3 (09:00→16:57)
[2017-09-11] MEDS: ENSURE ENLIVE CHOC 237 ML CAN PO SCH ×3 (09:00→17:36)
[2017-09-11] MEDS: MINERAL OIL/PETROL OINT 396 GM JAR TP SCH ×2 (09:00→21:00)
[2017-09-11] MEDS: HYDROGEL DRESSING 90 GM TUBE TP SCH ×2 (09:00→21:00)
[2017-09-11] MEDS: CLOPIDOGREL BISULFATE 75 MG TABLET GT SCH (09:00)
[2017-09-11] MEDS: PETROLATUM,WHITE PACKET 5 GM PACKET TP SCH ×2 (09:00→21:00)
[2017-09-11] MEDS: HYDROCODONE/APAP 10/325MG 1 EA TABLET GT SCH ×3 (09:00→22:00)
[2017-09-11] MEDS: Z GUARD REMEDY 4 OZ OINT TP SCH ×4 (09:00→21:00)
[2017-09-11] MEDS: ASCORBIC ACID 500 MG TABLET GT SCH ×2 (09:00→16:57)
[2017-09-11] MEDS: GABAPENTIN 300 MG CAPSULE GT SCH ×3 (09:00→16:57)
[2017-09-11] MEDS: METHADONE HCL 10 MG TABLET GT SCH (09:00)
[2017-09-11] MEDS: CALCITRIOL 0.25 MCG CAPSULE PO SCH (09:00)
[2017-09-11] MEDS: ESCITALOPRAM OXALATE (10 MG) 10 MG TABLET GT SCH (09:00)
[2017-09-11] MEDS: FAMOTIDINE (20 MG) 20 MG TABLET GT SCH ×2 (09:00→21:00)
[2017-09-11] MEDS: CALCIUM CARBONATE 500 MG TAB.CHEW GT SCH ×3 (09:00→16:57)
[2017-09-11] MEDS: ACIDOPHILUS/BULGARICUS 1 EACH TAB.CHEW GT SCH ×3 (09:00→16:57)
[2017-09-11] MEDS: BACLOFEN (10 MG) 10 MG TABLET GT SCH ×4 (09:00→21:00)
[2017-09-11] MEDS: NYSTATIN/TRIAMCIN 15 GM CREAM 15 GM TUBE TP SCH ×2 (09:00→21:00)
[2017-09-11] MEDS: HYDROGEN PEROXIDE 480 ML BOTTLE TP SCH ×2 (09:00→21:00)
[2017-09-11] MEDS: GENTAMICIN 140 MG in IV D5W 100 ML IV SCH ×2 (11:00→23:00)
--- NOTE | 2017-09-11 11:00 | NUR ---
Called jaymie(brother)for consent for Wound debridement,gave consent for that and ms lyles gave Andrea consent.Per hospital tray service worker its ok to get the Andrea consent by .
--- NOTE | 2017-09-11 11:03 | NUR ---
PATIENT TRACHED AND IS ON MECHANICAL VENTILATION. AMBU BAG/BACK UP TRACH @ BEDSIDE. VENT PLUGGED INTO RED OUTLET. ALARMS ON AND AUDIBLE. SX DONE, TRACH SECURED AND PATENT AT ALL TIMES. PATIENT MONITORED CLOSELY, NO DISTRESS NOTED. Addendum: 09/11/17 at 1103 by VERNELL CHRISTINE RT Amended: Links added.
[2017-09-11 11:44] LABS: CREATININE 0.9 mg/dL (0.6-1.3)
[2017-09-11 11:49] LABS: GENTAMICIN,TROUGH 3.1 ug/ml (0.2-2.0)
--- NOTE | 2017-09-11 12:30 | NUR ---
Received the labs gentamicin trough(3.1),BUN,CR level and faxed to [facility] pharmacy.Spoke with IV pharmacist .As per the pharmacist hold IV Gentamicin 140mg until further orders and gentamicin random tomorrow @1200.CARLI lim made aware.New orders noted and carried out.
--- NOTE | 2017-09-11 15:37 | NUR ---
Resident was seen by Dr. Rome TERRAZAS. He noted that it looks like he has a small cavity but that Dr. Marianne TERRAZAS will come by another time to double check. He will also get a cleaning on his next visit. Resident told Dr. Peter that he prefers Dr. Loeps to come and do his cleaning. Sister informed via email per her request.
[2017-09-11 19:44] VITALS: BP 107/82
[2017-09-11] MEDS: MULTIVIT, IRON, MIN NO. 8, FA 1 TAB GT SCH (21:00)
[2017-09-11] MEDS: CRANBERRY GT SCH (21:00)
[2017-09-11] MEDS: ZINC SULFATE 220 MG CAPSULE PO SCH (21:00)
[2017-09-11] MEDS: ENOXAPARIN SODIUM 40 MG/0.4 ML DISP.SYRIN SQ SCH (21:00)
[2017-09-11] MEDS: POLYETHYLENE GLYCOL 3350 17 GM POWD.PACK GT SCH (21:00)
[2017-09-11] MEDS: ATORVASTATIN CALCIUM 20MG TABLET GT SCH (22:12)
[2017-09-12 07:57] VITALS: BP 109/68
[2017-09-12] MEDS: CALCITRIOL 0.25 MCG CAPSULE PO SCH (09:00)
[2017-09-12] MEDS: METHADONE HCL 10 MG TABLET GT SCH (09:00)
[2017-09-12] MEDS: NYSTATIN/TRIAMCIN 15 GM CREAM 15 GM TUBE TP SCH ×2 (09:00→21:00)
[2017-09-12] MEDS: PROSOURCE / PROSTAT (PYXIS) 30 ML UDC GT SCH ×3 (09:00→16:45)
[2017-09-12] MEDS: NYSTATIN/TRIAMCIN CREAM 15 GM TUBE TP SCH ×6 (09:00→21:00)
[2017-09-12] MEDS: GABAPENTIN 300 MG CAPSULE GT SCH ×3 (09:00→16:45)
[2017-09-12] MEDS: MINERAL OIL/PETROL OINT 396 GM JAR TP SCH ×2 (09:00→21:00)
[2017-09-12] MEDS: ASCORBIC ACID 500 MG TABLET GT SCH ×2 (09:00→16:45)
[2017-09-12] MEDS: BACLOFEN (10 MG) 10 MG TABLET GT SCH ×4 (09:00→21:00)
[2017-09-12] MEDS: ENSURE ENLIVE CHOC 237 ML CAN PO SCH ×3 (09:00→16:45)
[2017-09-12] MEDS: ACIDOPHILUS/BULGARICUS 1 EACH TAB.CHEW GT SCH ×3 (09:00→16:51)
[2017-09-12] MEDS: METOPROLOL TARTRATE 25 MG TABLET GT SCH ×2 (09:00→16:45)
[2017-09-12] MEDS: PETROLATUM,WHITE PACKET 5 GM PACKET TP SCH ×2 (09:00→21:00)
[2017-09-12] MEDS: CLOPIDOGREL BISULFATE 75 MG TABLET GT SCH (09:00)
[2017-09-12] MEDS: HYDROGEN PEROXIDE 480 ML BOTTLE TP SCH ×2 (09:00→21:00)
[2017-09-12] MEDS: ESCITALOPRAM OXALATE (10 MG) 10 MG TABLET GT SCH (09:00)
[2017-09-12] MEDS: CALCIUM CARBONATE 500 MG TAB.CHEW GT SCH ×3 (09:00→16:45)
[2017-09-12] MEDS: HYDROCODONE/APAP 10/325MG 1 EA TABLET GT SCH ×2 (09:00→21:00)
[2017-09-12] MEDS: Z GUARD REMEDY 4 OZ OINT TP SCH ×4 (09:00→21:00)
[2017-09-12] MEDS: FAMOTIDINE (20 MG) 20 MG TABLET GT SCH ×2 (09:00→21:00)
[2017-09-12] MEDS: HYDROGEL DRESSING 90 GM TUBE TP SCH ×2 (09:00→21:00)
--- NOTE | 2017-09-12 14:40 | NUR ---
Faxed gentamicin random level result to [facility] IV pharmacist. Order obtained to change dose to 140mg IV q 24hrs; gentamicin trough, BUN/Crea before 3rd dose. Orders noted and carried out.
--- NOTE | 2017-09-12 15:20 | NUR ---
Dr. Ugarte with order to start CPAP on patient tomorrow, ABG 1hr post vent change. Order noted and carried out. Patient notified. Pt's [id number]-[id number] Vilma notified via VM.
[2017-09-12] MEDS: GENTAMICIN 140 MG in IV D5W 100 ML IV SCH (15:30)
--- NOTE | 2017-09-12 18:35 | NUR ---
Clarification of order obtained regarding duration of IV Gentamicin. Order obtained from Diana BOYCE (ID) to give Gentamicin x 7 days total. Order noted and carried out.
[2017-09-12 19:51] VITALS: BP 95/55
[2017-09-12] MEDS: ZINC SULFATE 220 MG CAPSULE PO SCH (21:00)
[2017-09-12] MEDS: ENOXAPARIN SODIUM 40 MG/0.4 ML DISP.SYRIN SQ SCH (21:00)
[2017-09-12] MEDS: POLYETHYLENE GLYCOL 3350 17 GM POWD.PACK GT SCH (21:00)
[2017-09-12] MEDS: MULTIVIT, IRON, MIN NO. 8, FA 1 TAB GT SCH (21:00)
[2017-09-12] MEDS: CRANBERRY GT SCH (21:00)
[2017-09-12] MEDS: ATORVASTATIN CALCIUM 20MG TABLET GT SCH (22:15)
[2017-09-13 07:40] VITALS: BP 119/71
--- NOTE | 2017-09-13 07:42 | NUR ---
PT. RECEIVED ON AC MODE. Addendum: 09/13/17 at 0742 by JAYLENE STORY RT Amended: Links added.
--- NOTE | 2017-09-13 07:45 | NUR ---
WEANING TRIAL ON FF. SETTINGS ORDER: CPAP 5/ PS 15, FIO2 30%. Addendum: 09/13/17 at 0747 by JAYLENE STORY RT Amended: Links added.
[2017-09-13 07:52] LABS: BASOPHILS % (AUTO) 0.3 % (0.0-2.0); EOSINOPHILS % (AUTO) 1.9 % (0.0-6.0); HEMATOCRIT 27 % (39-51); HEMOGLOBIN 8.3 g/dL (13.5-17.5); LYMPHOCYTES # (AUTO) 2.3 /CMM (0.8-4.8); LYMPHOCYTES % (AUTO) 22.8 % (20.0-44.0); MEAN CORPUSCULAR HEMOGLOBIN 25 PG (26.0-33.0); MEAN CORPUSCULAR HGB CONC 32 g/dl (31.0-36.0); MEAN CORPUSCULAR VOLUME 79 fL (80-96); MONOCYTES # (AUTO) 0.7 /CMM (0.1-1.30); MONOCYTES % (AUTO) 7.3 % (2.0-12.0); NEUTROPHILS # (AUTO) 6.8 /CMM (1.8-8.9); NEUTROPHILS % (AUTO) 67.7 % (43.0-81.0); PLATELET COUNT (AUTO) 484 /CMM (150-450); RDW COEFFICIENT OF VARIATION 20.2 (11.5-15.0); RED BLOOD CELL COUNT(AUTO) 3.35 MIL/uL (4.5-6.0); WHITE BLOOD COUNT (AUTO) 10.1 K/uL (4.3-11.0)
[2017-09-13 09:24] LABS: ABG BASE EXCESS 1.4 mmol/L; ABG OXYGEN SATURATION 95.5 % (92.0-98.5); ABG PCO2 36.9 mmHg (35.0-45.0); ABG PH 7.453 (7.350-7.450); ABG PO2 85.8 mmHg (75.0-100.0); AaDO2 84.7 mmHg; COHb 0.3 % (0.5-1.5); MetHb 0.5 % (0.0-1.5); O2Hb 94.7 % (94.0-97.0); SITE, ABG Left Radial
[2017-09-13] MEDS: BACLOFEN (10 MG) 10 MG TABLET GT SCH ×4 (09:33→21:20)
[2017-09-13] MEDS: METOPROLOL TARTRATE 25 MG TABLET GT SCH ×2 (09:33→17:00)
[2017-09-13] MEDS: ACIDOPHILUS/BULGARICUS 1 EACH TAB.CHEW GT SCH ×3 (09:33→17:00)
[2017-09-13] MEDS: ESCITALOPRAM OXALATE (10 MG) 10 MG TABLET GT SCH (09:33)
[2017-09-13] MEDS: METHADONE HCL 10 MG TABLET GT SCH (09:34)
[2017-09-13] MEDS: GABAPENTIN 300 MG CAPSULE GT SCH ×3 (09:34→17:00)
[2017-09-13] MEDS: CALCITRIOL 0.25 MCG CAPSULE PO SCH (09:35)
[2017-09-13] MEDS: CALCIUM CARBONATE 500 MG TAB.CHEW GT SCH ×3 (09:35→17:00)
[2017-09-13] MEDS: ASCORBIC ACID 500 MG TABLET GT SCH ×2 (09:35→17:00)
[2017-09-13] MEDS: CLOPIDOGREL BISULFATE 75 MG TABLET GT SCH (09:35)
[2017-09-13] MEDS: FAMOTIDINE (20 MG) 20 MG TABLET GT SCH ×2 (09:35→21:20)
[2017-09-13] MEDS: ENSURE ENLIVE CHOC 237 ML CAN PO SCH ×3 (09:35→17:00)
[2017-09-13] MEDS: PROSOURCE / PROSTAT (PYXIS) 30 ML UDC GT SCH ×3 (09:35→17:00)
[2017-09-13] MEDS: HYDROCODONE/APAP 10/325MG 1 EA TABLET GT SCH ×3 (09:35→22:35)
--- NOTE | 2017-09-13 09:48 | NUR ---
PT. IS AWAKE AND VERY HAPPY TO PLACE INTO COOL AEROSOL @ 35% FIO2 ORDER. SPO2 = 99% HR = 78 RR = 14 - 16 Addendum: 09/13/17 at 0952 by JAYLENE STORY RT Amended: Links added.
--- NOTE | 2017-09-13 09:50 | NUR ---
Dr. Ugarte aware of ABG result with order to continue patient with cool aerosol as tolerated. Left a message to resident's responsible libertarian Vilma that Dr. Ugarte ordered to put patient back on cool aerosol based on ABG result.
[2017-09-13] MEDS: MINERAL OIL/PETROL OINT 396 GM JAR TP SCH ×2 (10:05→22:30)
[2017-09-13] MEDS: NYSTATIN/TRIAMCIN 15 GM CREAM 15 GM TUBE TP SCH ×2 (10:05→22:30)
[2017-09-13] MEDS: NYSTATIN/TRIAMCIN CREAM 15 GM TUBE TP SCH ×6 (10:05→22:30)
[2017-09-13] MEDS: PETROLATUM,WHITE PACKET 5 GM PACKET TP SCH ×2 (10:05→22:30)
[2017-09-13] MEDS: HYDROGEN PEROXIDE 480 ML BOTTLE TP SCH ×2 (10:05→22:30)
[2017-09-13] MEDS: HYDROGEL DRESSING 90 GM TUBE TP SCH ×2 (10:05→22:30)
[2017-09-13] MEDS: Z GUARD REMEDY 4 OZ OINT TP SCH ×4 (10:05→22:30)
[2017-09-13] MEDS: GENTAMICIN 140 MG in IV D5W 100 ML IV SCH (15:30)
[2017-09-13 20:00] VITALS: BP 110/75
[2017-09-13] MEDS: ATORVASTATIN CALCIUM 20MG TABLET GT SCH (21:21)
[2017-09-13] MEDS: CRANBERRY GT SCH (21:22)
[2017-09-13] MEDS: POLYETHYLENE GLYCOL 3350 17 GM POWD.PACK GT SCH (21:25)
[2017-09-13] MEDS: ZINC SULFATE 220 MG CAPSULE PO SCH (21:25)
[2017-09-13] MEDS: MULTIVIT, IRON, MIN NO. 8, FA 1 TAB GT SCH (21:26)
[2017-09-13] MEDS: ENOXAPARIN SODIUM 40 MG/0.4 ML DISP.SYRIN SQ SCH (21:27)
[2017-09-14 07:45] VITALS: BP 103/67
[2017-09-14] MEDS: METOPROLOL TARTRATE 25 MG TABLET GT SCH ×2 (08:17→17:49)
[2017-09-14] MEDS: ACIDOPHILUS/BULGARICUS 1 EACH TAB.CHEW GT SCH ×3 (08:17→17:47)
[2017-09-14] MEDS: ESCITALOPRAM OXALATE (10 MG) 10 MG TABLET GT SCH (08:17)
[2017-09-14] MEDS: BACLOFEN (10 MG) 10 MG TABLET GT SCH ×4 (08:17→20:24)
[2017-09-14] MEDS: METHADONE HCL 10 MG TABLET GT SCH (08:18)
[2017-09-14] MEDS: GABAPENTIN 300 MG CAPSULE GT SCH ×3 (08:18→17:49)
[2017-09-14] MEDS: HYDROCODONE/APAP 10/325MG 1 EA TABLET GT SCH ×2 (08:19→20:25)
[2017-09-14] MEDS: FAMOTIDINE (20 MG) 20 MG TABLET GT SCH ×2 (08:19→20:25)
[2017-09-14] MEDS: CLOPIDOGREL BISULFATE 75 MG TABLET GT SCH (08:20)
[2017-09-14] MEDS: CALCITRIOL 0.25 MCG CAPSULE PO SCH (08:20)
[2017-09-14] MEDS: CALCIUM CARBONATE 500 MG TAB.CHEW GT SCH ×3 (08:20→17:49)
[2017-09-14] MEDS: ASCORBIC ACID 500 MG TABLET GT SCH ×2 (08:20→17:49)
[2017-09-14] MEDS: ENSURE ENLIVE CHOC 237 ML CAN PO SCH ×3 (08:20→17:49)
[2017-09-14] MEDS: PROSOURCE / PROSTAT (PYXIS) 30 ML UDC GT SCH ×3 (08:20→17:49)
[2017-09-14] MEDS: NYSTATIN/TRIAMCIN 15 GM CREAM 15 GM TUBE TP SCH ×2 (14:30→21:44)
[2017-09-14] MEDS: NYSTATIN/TRIAMCIN CREAM 15 GM TUBE TP SCH ×6 (14:30→21:44)
[2017-09-14] MEDS: MINERAL OIL/PETROL OINT 396 GM JAR TP SCH ×2 (14:30→21:43)
[2017-09-14] MEDS: HYDROGEL DRESSING 90 GM TUBE TP SCH ×2 (14:30→21:43)
[2017-09-14] MEDS: PETROLATUM,WHITE PACKET 5 GM PACKET TP SCH ×2 (14:30→21:44)
[2017-09-14] MEDS: Z GUARD REMEDY 4 OZ OINT TP SCH ×4 (14:30→21:44)
[2017-09-14] MEDS: HYDROGEN PEROXIDE 480 ML BOTTLE TP SCH ×2 (14:30→21:43)
[2017-09-14] MEDS: GENTAMICIN 140 MG in IV D5W 100 ML IV SCH (15:30)
[2017-09-14 15:44] LABS: GENTAMICIN,TROUGH 0.7 ug/ml (0.2-2.0)
--- NOTE | 2017-09-14 19:30 | NUR ---
Received an order from Diana BOYCE to D/C contact isolation d/t patient clinically stable and antibiotic completer noted and carried out. Will continue to monitor
[2017-09-14] MEDS: CRANBERRY GT SCH (20:24)
[2017-09-14] MEDS: POLYETHYLENE GLYCOL 3350 17 GM POWD.PACK GT SCH (20:24)
[2017-09-14] MEDS: MULTIVIT, IRON, MIN NO. 8, FA 1 TAB GT SCH (20:25)
[2017-09-14] MEDS: ATORVASTATIN CALCIUM 20MG TABLET GT SCH (20:26)
[2017-09-14] MEDS: ZINC SULFATE 220 MG CAPSULE PO SCH (20:26)
[2017-09-14] MEDS: ENOXAPARIN SODIUM 40 MG/0.4 ML DISP.SYRIN SQ SCH (20:28)
[2017-09-14 21:33] VITALS: BP 117/72
[2017-09-15 07:51] VITALS: BP 135/72
[2017-09-15] MEDS: FAMOTIDINE (20 MG) 20 MG TABLET GT SCH ×2 (09:00→21:34)
[2017-09-15] MEDS: ASCORBIC ACID 500 MG TABLET GT SCH ×2 (09:00→17:00)
[2017-09-15] MEDS: BACLOFEN (10 MG) 10 MG TABLET GT SCH ×4 (09:00→21:34)
[2017-09-15] MEDS: METHADONE HCL 10 MG TABLET GT SCH (09:00)
[2017-09-15] MEDS: METOPROLOL TARTRATE 25 MG TABLET GT SCH ×2 (09:00→17:00)
[2017-09-15] MEDS: ESCITALOPRAM OXALATE (10 MG) 10 MG TABLET GT SCH (09:00)
[2017-09-15] MEDS: ENSURE ENLIVE CHOC 237 ML CAN PO SCH ×3 (09:00→17:00)
[2017-09-15] MEDS: GABAPENTIN 300 MG CAPSULE GT SCH ×3 (09:00→17:00)
[2017-09-15] MEDS: ACIDOPHILUS/BULGARICUS 1 EACH TAB.CHEW GT SCH ×3 (09:00→17:00)
[2017-09-15] MEDS: CALCITRIOL 0.25 MCG CAPSULE PO SCH (09:00)
[2017-09-15] MEDS: CLOPIDOGREL BISULFATE 75 MG TABLET GT SCH (09:00)
[2017-09-15] MEDS: CALCIUM CARBONATE 500 MG TAB.CHEW GT SCH ×3 (09:00→17:00)
[2017-09-15] MEDS: PROSOURCE / PROSTAT (PYXIS) 30 ML UDC GT SCH ×3 (09:00→17:00)
--- NOTE | 2017-09-15 10:49 | NUR ---
RAVI spoke to at the office of Dr. Lopes/Dr Rome TERRAZAS. stated Dr. Peter informed her that the resident does have a cavity and will need to come in to the office for a deep cleaning and filling (possibly x-rays too). informed SW that it would cost $415.00 for filling and deep cleaning and if the resident needs xrays it would cost a total of $455.00. Pqxoft-ml-yxy Vilma is not back until October 02, 2017 from [place]. RAVI emailed her the information per her request to see if she wants to proceed with RAVI making an appointment for him in Mid September. RAVI to follow up.
[2017-09-15] MEDS: HYDROCODONE/APAP 10/325MG 1 EA TABLET GT SCH ×2 (11:00→21:34)
[2017-09-15] MEDS: NYSTATIN/TRIAMCIN CREAM 15 GM TUBE TP SCH ×6 (12:00→21:35)
[2017-09-15] MEDS: HYDROGEL DRESSING 90 GM TUBE TP SCH ×2 (12:00→21:35)
[2017-09-15] MEDS: NYSTATIN/TRIAMCIN 15 GM CREAM 15 GM TUBE TP SCH ×2 (12:00→21:35)
[2017-09-15] MEDS: MINERAL OIL/PETROL OINT 396 GM JAR TP SCH ×2 (12:00→21:35)
[2017-09-15] MEDS: HYDROGEN PEROXIDE 480 ML BOTTLE TP SCH ×2 (12:00→21:35)
[2017-09-15] MEDS: PETROLATUM,WHITE PACKET 5 GM PACKET TP SCH ×2 (12:00→21:35)
[2017-09-15] MEDS: Z GUARD REMEDY 4 OZ OINT TP SCH ×4 (12:00→21:35)
[2017-09-15] MEDS: GENTAMICIN 140 MG in IV D5W 100 ML IV SCH (15:23)
[2017-09-15] MEDS: POLYETHYLENE GLYCOL 3350 17 GM POWD.PACK GT SCH (21:34)
[2017-09-15] MEDS: CRANBERRY GT SCH (21:34)
[2017-09-15] MEDS: MULTIVIT, IRON, MIN NO. 8, FA 1 TAB GT SCH (21:35)
[2017-09-15] MEDS: ZINC SULFATE 220 MG CAPSULE PO SCH (21:35)
[2017-09-15] MEDS: ATORVASTATIN CALCIUM 20MG TABLET GT SCH (21:35)
[2017-09-15] MEDS: ENOXAPARIN SODIUM 40 MG/0.4 ML DISP.SYRIN SQ SCH (21:35)
[2017-09-15 21:54] VITALS: BP 127/73
[2017-09-16 07:51] VITALS: BP 112/72
[2017-09-16] MEDS: FAMOTIDINE (20 MG) 20 MG TABLET GT SCH ×2 (09:00→21:41)
[2017-09-16] MEDS: ENSURE ENLIVE CHOC 237 ML CAN PO SCH ×3 (09:00→17:55)
[2017-09-16] MEDS: CLOPIDOGREL BISULFATE 75 MG TABLET GT SCH (09:00)
[2017-09-16] MEDS: GABAPENTIN 300 MG CAPSULE GT SCH ×3 (09:00→17:54)
[2017-09-16] MEDS: BACLOFEN (10 MG) 10 MG TABLET GT SCH ×4 (09:00→19:49)
[2017-09-16] MEDS: CALCIUM CARBONATE 500 MG TAB.CHEW GT SCH ×3 (09:00→17:55)
[2017-09-16] MEDS: ASCORBIC ACID 500 MG TABLET GT SCH ×2 (09:00→17:55)
[2017-09-16] MEDS: METOPROLOL TARTRATE 25 MG TABLET GT SCH ×2 (09:00→17:57)
[2017-09-16] MEDS: PROSOURCE / PROSTAT (PYXIS) 30 ML UDC GT SCH ×3 (09:00→17:54)
[2017-09-16] MEDS: CALCITRIOL 0.25 MCG CAPSULE PO SCH (09:00)
[2017-09-16] MEDS: MINERAL OIL/PETROL OINT 396 GM JAR TP SCH ×2 (09:00→21:42)
[2017-09-16] MEDS: ACIDOPHILUS/BULGARICUS 1 EACH TAB.CHEW GT SCH ×3 (09:00→17:54)
[2017-09-16] MEDS: ESCITALOPRAM OXALATE (10 MG) 10 MG TABLET GT SCH (09:00)
[2017-09-16] MEDS: METHADONE HCL 10 MG TABLET GT SCH (09:16)
[2017-09-16] MEDS: HYDROCODONE/APAP 10/325MG 1 EA TABLET GT SCH ×2 (11:00→21:40)
[2017-09-16] MEDS: NYSTATIN/TRIAMCIN 15 GM CREAM 15 GM TUBE TP SCH ×2 (12:00→21:43)
[2017-09-16] MEDS: HYDROGEL DRESSING 90 GM TUBE TP SCH ×2 (12:00→21:42)
[2017-09-16] MEDS: HYDROGEN PEROXIDE 480 ML BOTTLE TP SCH ×2 (12:00→21:42)
[2017-09-16] MEDS: PETROLATUM,WHITE PACKET 5 GM PACKET TP SCH ×2 (12:00→21:43)
[2017-09-16] MEDS: NYSTATIN/TRIAMCIN CREAM 15 GM TUBE TP SCH ×6 (12:00→21:42)
[2017-09-16] MEDS: Z GUARD REMEDY 4 OZ OINT TP SCH ×4 (12:00→21:43)
--- NOTE | 2017-09-16 12:31 | NUR ---
Trach tube change refused, per RN Toby would like RT Ruperto Cardenas, or Chirag, to have it done.
[2017-09-16] MEDS: CRANBERRY GT SCH (19:47)
[2017-09-16] MEDS: POLYETHYLENE GLYCOL 3350 17 GM POWD.PACK GT SCH (21:40)
[2017-09-16] MEDS: ZINC SULFATE 220 MG CAPSULE PO SCH (21:41)
[2017-09-16] MEDS: MULTIVIT, IRON, MIN NO. 8, FA 1 TAB GT SCH (21:41)
[2017-09-16] MEDS: ATORVASTATIN CALCIUM 20MG TABLET GT SCH (21:43)
[2017-09-16] MEDS: ENOXAPARIN SODIUM 40 MG/0.4 ML DISP.SYRIN SQ SCH (21:57)
[2017-09-16 22:15] VITALS: BP 126/73
[2017-09-17 07:42] VITALS: BP 127/73
[2017-09-17] MEDS: METHADONE HCL 10 MG TABLET GT SCH (09:13)
[2017-09-17] MEDS: PROSOURCE / PROSTAT (PYXIS) 30 ML UDC GT SCH ×3 (09:51→17:58)
[2017-09-17] MEDS: ENSURE ENLIVE CHOC 237 ML CAN PO SCH ×3 (09:51→17:58)
[2017-09-17] MEDS: CLOPIDOGREL BISULFATE 75 MG TABLET GT SCH (09:51)
[2017-09-17] MEDS: ACIDOPHILUS/BULGARICUS 1 EACH TAB.CHEW GT SCH ×3 (09:51→17:57)
[2017-09-17] MEDS: CALCITRIOL 0.25 MCG CAPSULE PO SCH (09:51)
[2017-09-17] MEDS: ESCITALOPRAM OXALATE (10 MG) 10 MG TABLET GT SCH (09:51)
[2017-09-17] MEDS: GABAPENTIN 300 MG CAPSULE GT SCH ×3 (09:51→17:58)
[2017-09-17] MEDS: CALCIUM CARBONATE 500 MG TAB.CHEW GT SCH ×3 (09:51→17:58)
[2017-09-17] MEDS: ASCORBIC ACID 500 MG TABLET GT SCH ×2 (09:51→17:58)
[2017-09-17] MEDS: FAMOTIDINE (20 MG) 20 MG TABLET GT SCH ×2 (09:51→20:38)
[2017-09-17] MEDS: BACLOFEN (10 MG) 10 MG TABLET GT SCH ×4 (09:51→20:38)
[2017-09-17] MEDS: METOPROLOL TARTRATE 25 MG TABLET GT SCH ×2 (09:51→17:58)
[2017-09-17] MEDS: HYDROCODONE/APAP 10/325MG 1 EA TABLET GT SCH ×2 (11:00→20:38)
[2017-09-17] MEDS: HYDROGEL DRESSING 90 GM TUBE TP SCH ×2 (12:00→20:39)
[2017-09-17] MEDS: HYDROGEN PEROXIDE 480 ML BOTTLE TP SCH ×2 (12:00→20:39)
[2017-09-17] MEDS: MINERAL OIL/PETROL OINT 396 GM JAR TP SCH ×2 (12:00→20:38)
[2017-09-17] MEDS: NYSTATIN/TRIAMCIN CREAM 15 GM TUBE TP SCH ×6 (12:00→20:39)
[2017-09-17] MEDS: PETROLATUM,WHITE PACKET 5 GM PACKET TP SCH ×2 (12:00→20:39)
[2017-09-17] MEDS: Z GUARD REMEDY 4 OZ OINT TP SCH ×4 (12:00→20:39)
[2017-09-17] MEDS: NYSTATIN/TRIAMCIN 15 GM CREAM 15 GM TUBE TP SCH ×2 (12:00→20:39)
[2017-09-17 20:08] VITALS: BP 119/78
[2017-09-17] MEDS: MULTIVIT, IRON, MIN NO. 8, FA 1 TAB GT SCH (20:38)
[2017-09-17] MEDS: POLYETHYLENE GLYCOL 3350 17 GM POWD.PACK GT SCH (20:38)
[2017-09-17] MEDS: CRANBERRY GT SCH (20:38)
[2017-09-17] MEDS: ZINC SULFATE 220 MG CAPSULE PO SCH (20:38)
[2017-09-17] MEDS: ENOXAPARIN SODIUM 40 MG/0.4 ML DISP.SYRIN SQ SCH (21:00)
[2017-09-17] MEDS: ATORVASTATIN CALCIUM 20MG TABLET GT SCH (22:04)
[2017-09-18 07:28] VITALS: BP 126/72
[2017-09-18] MEDS: BACLOFEN (10 MG) 10 MG TABLET GT SCH ×4 (08:01→18:50)
[2017-09-18] MEDS: ESCITALOPRAM OXALATE (10 MG) 10 MG TABLET GT SCH (08:01)
[2017-09-18] MEDS: ACIDOPHILUS/BULGARICUS 1 EACH TAB.CHEW GT SCH ×3 (08:01→18:00)
[2017-09-18] MEDS: METHADONE HCL 10 MG TABLET GT SCH (08:02)
[2017-09-18] MEDS: PROSOURCE / PROSTAT (PYXIS) 30 ML UDC GT SCH ×3 (08:02→18:00)
[2017-09-18] MEDS: GABAPENTIN 300 MG CAPSULE GT SCH ×4 (08:02→18:51)
[2017-09-18] MEDS: CLOPIDOGREL BISULFATE 75 MG TABLET GT SCH (08:02)
[2017-09-18] MEDS: ASCORBIC ACID 500 MG TABLET GT SCH ×2 (08:02→18:00)
[2017-09-18] MEDS: CALCITRIOL 0.25 MCG CAPSULE PO SCH (08:02)
[2017-09-18] MEDS: METOPROLOL TARTRATE 25 MG TABLET GT SCH ×3 (08:02→18:51)
[2017-09-18] MEDS: ENSURE ENLIVE CHOC 237 ML CAN PO SCH ×4 (08:02→18:52)
[2017-09-18] MEDS: CALCIUM CARBONATE 500 MG TAB.CHEW GT SCH ×3 (08:02→18:00)
[2017-09-18] MEDS: FAMOTIDINE (20 MG) 20 MG TABLET GT SCH (08:02)
[2017-09-18] MEDS: HYDROGEL DRESSING 90 GM TUBE TP SCH (09:00)
[2017-09-18] MEDS: Z GUARD REMEDY 4 OZ OINT TP SCH ×2 (09:00)
[2017-09-18] MEDS: NYSTATIN/TRIAMCIN CREAM 15 GM TUBE TP SCH ×3 (09:00)
[2017-09-18] MEDS: NYSTATIN/TRIAMCIN 15 GM CREAM 15 GM TUBE TP SCH (09:00)
[2017-09-18] MEDS: MINERAL OIL/PETROL OINT 396 GM JAR TP SCH (09:00)
[2017-09-18] MEDS: HYDROGEN PEROXIDE 480 ML BOTTLE TP SCH (09:00)
[2017-09-18] MEDS: HYDROCODONE/APAP 10/325MG 1 EA TABLET GT SCH (12:00)
--- NOTE | 2017-09-18 15:52 | NUR ---
Followed up wound debridement with Dr. Rafiq Diaz. He said he will see pt today.
--- NOTE | 2017-09-18 16:45 | NUR ---
Wound debridement done by Dr. Rafiq Diaz on pt's left ischial wound. He ordered to DC Petroleum dressing on the wound. He said to pack wound with gauze moistened with 1/4 Dakin's solution and apply Mepilex dressing.
--- NOTE | 2017-09-18 17:00 | NUR ---
Pt's brother Siva visited and stayed with pt for a few hours today.
[2017-09-18] MEDS: OXYCODONE GT PRN (18:00)
[2017-09-18] MEDS: APAP GT PRN (18:00)
--- NOTE | 2017-09-18 18:30 | NUR ---
BRO Hyman called charge nurse to see pt. Pt unresponsive. BP 81/46 HR 111 O2 sat 98%. Pt unresponsive even to painful stimuli. Called rapid response. Notified Dr. Walker. Addendum: 09/18/17 at 1910 by WINIFRED GARCÍA RN BRO Hyman said she last saw the pt responsive 20 minutes ago when she checked his blood pressure. Pt was not yet hypotensive and was communicating verbally with her, even joking around with her. She prepared the pt's medications and when she came back to his room, she found him unresponsive. Addendum: 09/18/17 at 1920 by WINIFRED GARCÍA RN Pt was pale. Ambubagged pt and called RT. Pt pinkish once he was ambubagged.
--- NOTE | 2017-09-18 18:48 | NUR ---
Rapid response team came immediately. Pt unresponsive and hypotensive. BP 69/46 HR 110. Blood sugar 220. EKG showed sinus tachycardia. Paged Dr. Walker. He ordered to transfer pt to ER.
[2017-09-18 18:50] LABS: ABG BASE EXCESS 2.2 mmol/L; ABG OXYGEN SATURATION 97.8 % (92.0-98.5); ABG PH 7.319 (7.350-7.450); ABG PO2 132.1 mmHg (75.0-100.0); AaDO2 86.4 mmHg; COHb 0.3 % (0.5-1.5); MetHb 0.6 % (0.0-1.5); O2Hb 96.9 % (94.0-97.0); PEEP,BG 5 cm H2O; SITE, ABG Left Radial; VENT MODE, BG VENT- AC; VT, ABG 500 mL
--- NOTE | 2017-09-18 19:00 | NUR ---
Transferred pt to ER, accompanied by RN Yenni, RT, and 2 CNAs.
--- NOTE | 2017-09-18 19:03 | NUR ---
RT NOTE PT PLACED ON VENT DUE TO NOT BEING RESPONSIVE. CALLED TO PATIENTS ROOM BY RN. FOUND RN BAGGING PT DUE TO DESATURATION. PT FOUND UN RESPONSIVE. SATURATION 98% ON 100% AMBU BAG. HR 111. PT NOTED TO HAVE LOW BP. RAPID RESPONSE CALLED. CUFF INFLATED, VENT CIRCUIT CONNECTED. PT PLACED ON PREVIOUS SETTINGS AC 14 500 +5. FI02 INCREASED TO 100% VENT FOUND AT BED SIDE. ALARMS SET PER PROTOCOL AND AUDIBLE. AMBU BAG AT BED SIDE. TRACH MIDLINE AND SECURE. ENDORSED PT TO ONCOMING DIGITAL MEDIA MANAGER RT JOSÉ LUIS.
[2017-09-18 19:05] VITALS: BP 73/47
[2017-09-18] MEDS ORDERED: DEXTROSE IV (20:50)
[2017-09-18] MEDS ORDERED: HYDR1SOL MC (20:50)
[2017-09-18] MEDS ORDERED: NYST15CR15 TP (20:50)
[2017-09-18] MEDS ORDERED: LACT-246 PO (20:50)
[2017-09-18] MEDS ORDERED: MINE105O TP (20:50)
[2017-09-18] MEDS ORDERED: SODIUM CHLORIDE IV (20:50)
[2017-09-18] MEDS ORDERED: SODI473S9 MC (20:50)
[2017-09-18] MEDS ORDERED: GEL100GE MC (20:50)
[2017-09-18] MEDS ORDERED: ASCO-340 GT (20:50)
[2017-09-18] MEDS ORDERED: LEVOFLOXACIN 750 MG /D5W 150ML 150 ML IV ONE (20:58)
[2017-09-18] MEDS ORDERED: ASPIRIN EC 325 MG TABLET.DR PO ONE (20:58)
[2017-09-18] MEDS ORDERED: DAKINS QUARTER STRENGTH (0.125%) 480 ML BOTTLE TOP SCH (21:00)
[2017-09-18] MEDS ORDERED: POLY17PO4 PO (21:07)
[2017-09-18] MEDS ORDERED: AMIN30LI25 GT (21:07)
--- NOTE | 2017-09-19 09:23 | NUR ---
RAVI informed the resident's rwdubm-qd-mfv Vilma that the resident was transferred to ICU 09/18/2017 and has been placed on a 7 day BH. Appreciated the information given. She noted she will try to call ICU in a bit, as she is currently in [place].
[2017-09-20] MEDS ORDERED: CEFEPIME 1 GM in IV D5W 50 ML IV SCH (11:00)
== END 2017-09-18 20:53 | disposition short-term general hospital (02) | DRG 166 ==
LOC: SA 00:01
PROVIDERS: ADMIT Internal Medicine; ATTEND Internal Medicine
PROC: 0JB70ZZ Excision of Back Subcutaneous Tissue and Fascia, Open Approach (ICD-10-PCS; 2017-08-14)
PROC: 5A1955Z Respiratory Ventilation, Greater than 96 Consecutive Hours (ICD-10-PCS; principal; 2017-09-06)
PROC: 0KBP0ZZ Excision of Left Hip Muscle, Open Approach (ICD-10-PCS; 2017-09-18)
PROC: 0KBN0ZZ Excision of Right Hip Muscle, Open Approach (ICD-10-PCS; 2017-09-18)
PROC: 0JB70ZZ Excision of Back Subcutaneous Tissue and Fascia, Open Approach (ICD-10-PCS; 2017-09-18)
DX: J96.22 Acute and chronic respiratory failure with hypercapnia (principal); L89.154 Pressure ulcer of sacral region, stage 4; R53.2 Functional quadriplegia; D68.59 Other primary thrombophilia; Z99.11 Dependence on respirator [ventilator] status; E66.2 Morbid (severe) obesity with alveolar hypoventilation; N13.1 Hydronephrosis with ureteral stricture, not elsewhere classified; E46 Unspecified protein-calorie malnutrition; Z93.0 Tracheostomy status; J44.9 Chronic obstructive pulmonary disease, unspecified; G35 Multiple sclerosis; D47.3 Essential (hemorrhagic) thrombocythemia; D63.8 Anemia in other chronic diseases classified elsewhere; E11.9 Type 2 diabetes mellitus without complications; I10 Essential (primary) hypertension; E66.9 Obesity, unspecified; K21.9 Gastro-esophageal reflux disease without esophagitis; L98.9 Disorder of the skin and subcutaneous tissue, unspecified; Z85.828 Personal history of other malignant neoplasm of skin; Z93.3 Colostomy status; Z93.1 Gastrostomy status; Z98.890 Other specified postprocedural states; Z87.440 Personal history of urinary (tract) infections; Z87.01 Personal history of pneumonia (recurrent); Z74.01 Bed confinement status; L60.3 Nail dystrophy; G89.4 Chronic pain syndrome; L60.0 Ingrowing nail; L57.0 Actinic keratosis; F32.9 Major depressive disorder, single episode, unspecified; Z93.6 Other artificial openings of urinary tract status; R13.10 Dysphagia, unspecified; Z68.24 Body mass index [BMI] 24.0-24.9, adult; Z79.899 Other long term (current) drug therapy; N13.9 Obstructive and reflux uropathy, unspecified; Z85.820 Personal history of malignant melanoma of skin; G47.62 Sleep related leg cramps; B96.89 Other specified bacterial agents as the cause of diseases classified elsewhere; J40 Bronchitis, not specified as acute or chronic
CPT/HCPCS: 31720; 36415; 36600; 71045-TC; 74018; 80048-TC; 80053-TC; 80170-TC; 80202-TC; 81000-TC; 82140-TC; 82272-TC; 82565-TC; 82803-TC; 82962-TC; 84520-TC; 85025-TC; 86580-TC; 87040-TC; 87070-TC; 87086-TC; 87186-TC; 94002-TC; 94003-TC; 94640-TC; 94799-TC; A4216; A4217; A4623; A6248; A6253; A6402; A7526; J0692; J1580; J1650; J1956; J2185; J2270; J2405; J3370; J7030; J7042; J7050; J7060; L8501; Q9963; Q9967; Z7610

== ENCOUNTER 2017-07-04 06:22 | Inpatient (IN) | payer MEDICARE, MEDICAID ==
[2017-07-04] VITALS (61 sets, daily range): BP systolic 57–128; BP diastolic 32–82
[~2017-07-04] VITALS: Ht 170.2 cm; Wt 84.4 kg
[~2017-07-04 06:22] MED LIST changes: +ACID1TAB12 GT; +AMIN30LI4 GT; +BALS60OI TP; -BENZ1LOZ58 PO; -CADE40GE2 TP; +CHLO473M5 MM; -CLOT15CR35 TP; +CRAN405C GT; -HYDR1SOL TP; +HYDR1TOW4 TP; +IMIQ1CRE11 TP; +METH-406 GT; -NEOM15OI3 TP; +OXYC-133 GT; +POLY17PO4 GT; +TUBE5VIA2 ID; +VITA56.7 TP
--- NOTE | 2017-07-04 06:25 | NUR ---
PT BIB FROM [facility] HERE FOR HYPOTENSION/TACHYCARDIA. PT NONVERBAL, NOT RESPONSTIVE TO VERBAL OR PAINFUL STIMULI. PT TRACH INTACT AND PATENT. CONNECTED TO 02. WITH 02 SAT 90'S. GTUBE INTACT AND PATENT. NO S/S INFECTION OR INFILTRATION NOTED. PT ALSO NOTED WITH F/C WITH HEMATURIA, MD AWARE. PT GOWNED AND PLACED ON MONITOR. DR. MATTHEWS AT BEDSIDE FOR EVAL. PT NOTED WITH MULTIPLE SACRAL WOUNDS. PT WARM TO TOUCH. RECTAL TEMP NOTED AT 105. COOLING MEASURES APPLIED.
[2017-07-04] MEDS ORDERED: ACETAMINOPHEN ES 500 MG TABLET GT ONE (06:30)
[2017-07-04] MEDS ORDERED: VANCOMYCIN 1 GM in IV D5W 250 ML IV ONE (06:30)
[2017-07-04] MEDS ORDERED: IV NS 0.9% 1,000 ML BAG IV ONE ×3 (06:30→08:30)
[2017-07-04] MEDS ORDERED: ACETAMINOPHEN ES 500 MG TABLET ONE (06:30)
--- NOTE | 2017-07-04 06:43 | NUR ---
CALLED RT FOR BREATHING TX.
--- NOTE | 2017-07-04 06:50 | NUR ---
PER CASSIE WINN TO COLLECT URINE FROM CURERNT GUZMAN CATH FROM SUB ACUTE.
--- NOTE | 2017-07-04 06:52 | NUR ---
URINE COLLECTED. SENT TO LAB
[2017-07-04] MEDS ORDERED: IPRATROPIUM NEB FS 0.5 MG/2.5 ML AMPUL.NEB NEB ONE (07:00)
[2017-07-04] MEDS ORDERED: ALBUTEROL FS 2.5 MG/0.5 ML VIAL.NEB NEB ONE (07:00)
--- NOTE | 2017-07-04 07:04 | NUR ---
PT ASSIGNED TO ICU 251. PER CHRIST[facility] RN, PT ON ISOLATION FOR CRE URINE.
--- NOTE | 2017-07-04 07:04 | NUR ---
CALLED PHARM FOR IV ATB.
[2017-07-04 07:05] LABS: CALCIUM, SERUM 8.9 mg/dL (8.5-10.1); CARBON DIOXIDE 22 mmol/L (21-32); CHLORIDE 99 mmol/L (98-107); CREATININE 1.9 mg/dL (0.6-1.3); GLUCOSE 135 mg/dL (74-106); POTASSIUM 4.2 mmol/L (3.5-5.1); SODIUM SERUM 134 mmol/L (136-145); UREA NITROGEN, BLOOD 26 mg/dL (7-18)
[2017-07-04 07:06] LABS: HEMATOCRIT 34 % (39-51); HEMOGLOBIN 10.9 g/dL (13.5-17.5); LYMPHOCYTES # (AUTO) 0.5 /CMM (0.8-4.8); LYMPHOCYTES % (AUTO) 2.9 % (20.0-44.0); MEAN CORPUSCULAR HGB CONC 32 g/dl (31.0-36.0); MEAN CORPUSCULAR VOLUME 82 fL (80-96); MONOCYTES % (AUTO) 0.2 % (2.0-12.0); NEUTROPHILS # (AUTO) 15.7 /CMM (1.8-8.9); NEUTROPHILS % (AUTO) 96.9 % (43.0-81.0); PLATELET COUNT (AUTO) 334 /CMM (150-450); RDW COEFFICIENT OF VARIATION 19.9 (11.5-15.0); RED BLOOD CELL COUNT(AUTO) 4.14 MIL/uL (4.5-6.0); WHITE BLOOD COUNT (AUTO) 16.2 K/uL (4.3-11.0)
--- NOTE | 2017-07-04 07:06 | NUR ---
REPORT GIVEN TO BRO HERNANDEZ FOR ARLENE.
--- NOTE | 2017-07-04 07:10 | NUR ---
RECEIVED IV ATB FROM PHARM.
[2017-07-04 07:13] LABS: TROPONIN I 0.144 ng/mL (0.00-0.056)
[2017-07-04] MEDS: CEFEPIME 1 GM VIAL IV ONE ×2 (07:14→07:18)
[2017-07-04 07:17] LABS: ALANINE AMINOTRANSFERASE 24 U/L (12-78); ALBUMIN 2.4 g/dL (3.4-5.0); ALKALINE PHOSPHATASE 246 U/L (46-116); ASPARTATE AMINOTRANSFERASE 26 U/L (15-37); B-TYPE NATRIURETIC PEPTIDE 1661 PG/ML (0-125); BILIRUBIN,DIRECT 0.5 mg/dL (0.0-0.2); BILIRUBIN,TOTAL 0.8 mg/dL (0.2-1.0); INR 1.22 (0.87-1.13); TOTAL PROTEIN, SERUM 7.3 g/dL (6.4-8.2)
--- NOTE | 2017-07-04 07:25 | NUR ---
PATIENT BLOOD PRESSURE DROPPED, INFORMED, ORDERED 2L NS. WILL REASSESS.
[2017-07-04] MEDS ORDERED: CEFEPIME 2 GM in IV NS 0.9% 50 ML IV ONE (07:30)
--- NOTE | 2017-07-04 07:30 | NUR ---
PANEL ON-CALL PAGED
[2017-07-04 08:25] LABS: APPEARANCE,URINE TURBID (CLEAR); BILIRUBIN,URINE 3+ (NEGATIVE); BLOOD, URINE 3+ Ery/uL (NEGATIVE); COLOR,URINE RED (YELLOW); KETONES,URINE 1+ (NEGATIVE); LEUKOCYTE ESTERASE ,URINE 3+ (NEGATIVE); NITRITE, URINE POSITIVE (NEGATIVE); PH,URINE 6.5 (5.0-8.0); PROTEIN,URINE 3+ mg/dl (NEGATIVE); UGLUCOSE TRACE mg/dL (NEGATIVE); UROBILINOGEN,URINE >=8.0 EU/dL (0.2)
[2017-07-04] MEDS ORDERED: OXYC-133 PO (08:26)
[2017-07-04] MEDS ORDERED: HYDR-548 GT (08:26)
[2017-07-04] MEDS ORDERED: ZINC220T GT (08:26)
[2017-07-04] MEDS ORDERED: METH10TA2 GT (08:26)
--- NOTE | 2017-07-04 08:26 | NUR ---
REPORT GIVEN TO PATRICIA CRABTREE FOR ARLENE UPON ADMISSION.
--- NOTE | 2017-07-04 09:00 | NUR ---
PATIENT TRANSPORTED TO [facility], 116-1 VIA ACLS PROTOCOL. RNPATRICIA TO PROVIDE ARLENE.
--- NOTE | 2017-07-04 09:10 | NUR ---
[facility] RN NOTES RECEIVED PT FROM ER WITH DX OF FEVER AND HYPOTENSION UNDER THE CARE OF DR. RENÉ PATEL, PT HAS TRACH TO COOL AEROSOL AT 10L O2 TO 80%, PT HAS GTUBE CLAMPED, AND WITH FC NOTED HEMATURIA, PT HAS IV ON R FOOT AND R MIDDLE FINGER, INITIAL PICTURE OF WOUND INITIATED, VS TAKEN FOLLOWS; BP: 77/49, T: 99.6, PT HAS KCI MATTRESS, BED ON LOCKED POSITION, DISCUSSED PLAN OF CARE WITH PT, CALL LIGHT WITHIN REACH, WILL CONTINUE TO MONITOR, ADMISSION WILL VERIFIED WITH DR. RENÉ PATEL.
[2017-07-04 09:12] LABS: RBC,URINE TOO NUMEROUS TO COUN /HPF (0-2)
[2017-07-04 09:13] LABS: BACTERIA,URINE 3+ /HPF (None Seen); SQUAMOUS EPITHELIAL CELL,UR Rare /HPF (None Seen)
[2017-07-04 09:15] LABS: WBC,URINE TOO NUMEROUS TO COUN /HPF (0-3)
--- NOTE | 2017-07-04 09:35 | NUR ---
clarified with samson brady admitting orders patient sbp on 70's per samson pt. should be in icu r/t low bp,nsg. sup notified,will transfer to icu and endorsed continuity of care.
--- NOTE | 2017-07-04 09:36 | NUR ---
[facility] RN NOTES PER DR RENÉ PATEL AND CHARGE NURSE TENA PALMA TO TRANSFER TO ICU, PT IS GONNA BE PLACED ON PRESSORS, RT AT BEDSIDE
--- NOTE | 2017-07-04 09:38 | NUR ---
seen and evaluated pt. ordered pressor.
--- NOTE | 2017-07-04 09:38 | NUR ---
[facility] RN NOTES TRANSFERRED TO ICU, BEDSIDE REPORT GIVEN TO NORBERT CRABTREE
[2017-07-04] MEDS ORDERED: NOREPINEPHRINE 8 MG in IV D5W 500 ML IV PRN ×2 (10:00→11:00)
--- NOTE | 2017-07-04 10:00 | NUR ---
PT IS HYPOTENSIVE RENÉ JORGE NOTIFIED LEVOPHED ORDERED.
[2017-07-04] MEDS ORDERED: ALBUTEROL HALF STRENGTH 1.25 MG/3 ML VIAL.NEB IH PRN (10:30)
[2017-07-04] MEDS ORDERED: BISACODYL SUPP (10 MG) 10 MG/SUPP.RECT SUPP.RECT RC PRN (10:30)
[2017-07-04] MEDS ORDERED: CEFEPIME 1 GM VIAL IM SCH (10:30)
[2017-07-04] MEDS ORDERED: ONDANSETRON 4 MG TAB.RAPDIS GT PRN (10:30)
[2017-07-04] MEDS ORDERED: METHOCARBAMOL (750MG) 750 MG TABLET GT PRN (10:30)
[2017-07-04] MEDS ORDERED: IPRATROPIUM NEB FS 0.5 MG/2.5 ML AMPUL.NEB IH PRN (10:30)
[2017-07-04] MEDS ORDERED: IV D5/ 0.9% NACL 1,000 ML IV PRN (10:30)
[2017-07-04 10:56] LABS: ABG BASE EXCESS -7.5 mmol/L; ABG OXYGEN SATURATION 97.5 % (92.0-98.5); ABG PCO2 30.4 mmHg (35.0-45.0); ABG PH 7.363 (7.350-7.450); ABG PO2 108.7 mmHg (75.0-100.0); AaDO2 429.8 mmHg; COHb 0.3 % (0.5-1.5); MetHb 0.7 % (0.0-1.5); O2Hb 96.5 % (94.0-97.0); SITE, ABG Right Radial; VENT MODE, BG COOL AEROSOL
[2017-07-04 10:56] LABS: BAND % (MANUAL) 9 % (0.0-5.0); LYMPHOCYTES % (MANUAL) 4 % (16-48); NEUTROPHILS % (MANUAL) 87 (42-76)
[2017-07-04] MEDS ORDERED: Z GUARD REMEDY 2 OZ OINT TP PRN (11:00)
[2017-07-04] MEDS ORDERED: IV NS 0.9% 1,000 ML IV PRN (11:00)
[2017-07-04] MEDS ORDERED: ONDANSETRON HCL/PF 4 MG/2 ML VIAL IVP PRN (11:00)
[2017-07-04] MEDS ORDERED: ACETAMINOPHEN 325 MG TABLET PO PRN (11:00)
--- NOTE | 2017-07-04 11:00 | NUR ---
NS FIRST BOLUS IN PROGRESS. PHARMACY CALLED FOR LEVO AGAIN. PT AWAKE OPENS EYES ABLE TO ANSWER SIMPLE QUESTIONS. FULL SKIN ASSESSMENT IS PERVERTED AT THIS TIME DUE TO HYPOTENSION. FC DRAINS DARK BLOODY URINE.
[2017-07-04] MEDS ORDERED: MORPHINE SULFATE INJ 4 MG/ML DISP.SYRIN IV PRN (11:30)
--- NOTE | 2017-07-04 11:30 | NUR ---
LEVOPHED INITIATED. WILL TITRATE NEEDED. RENÉ PATEL COMING TO PLACE CENTRAL LINE.
--- NOTE | 2017-07-04 12:00 | NUR ---
3 WAY FC INSERTED WILL IMITATED IRRIGATION. FAMILY CONTACTED FOR CONSENT.
[2017-07-04 12:05] LABS: TROPONIN I 0.167 ng/mL (0.00-0.056)
[2017-07-04] MEDS ORDERED: FEE PK DOSING 1 MIN EA MC ONE (12:10)
[2017-07-04 12:18] LABS: THYROID STIMULATING HORMONE 0.147 uIU/mL (0.358-3.74)
--- NOTE | 2017-07-04 13:15 | NUR ---
SECOND BOLUS NS COMPLETED. NS AT 75 ML/H. LEVOPHED NOW AT 40 MICS.
[2017-07-04] MEDS: ACIDOPHILUS/BULGARICUS 1 EACH TAB.CHEW GT SCH ×2 (13:58→17:06)
[2017-07-04] MEDS: VANCOMYCIN 1 GM in IV NS 0.9% 250 ML IV SCH (13:58)
[2017-07-04] MEDS: MEROPENEM 1 G in IV NS 0.9% 100 ML IV SCH ×2 (13:58→21:00)
[2017-07-04] MEDS: HYDROCORTISONE SOD SUCCINATE 100 MG/2 ML VIAL IV SCH ×2 (13:59→17:06)
[2017-07-04] MEDS: GABAPENTIN 300 MG CAPSULE GT SCH ×2 (14:06→17:06)
[2017-07-04] MEDS: BACLOFEN (10 MG) 10 MG TABLET GT SCH ×3 (14:10→21:00)
[2017-07-04] MEDS: NOREPINEPHRINE 16 MG in IV D5W 500 ML IV PRN ×2 (14:16→22:30)
[2017-07-04] MEDS ORDERED: ACETAMINOPHEN 650 MG/20.3 ML UDC GT PRN (15:00)
[2017-07-04] MEDS: IV NS 0.9% 1,000 ML IV PRN (15:55)
[2017-07-04] MEDS: HYDROCODONE/APAP 10/325MG 1 EA TABLET PO SCH (16:04)
[2017-07-04] MEDS: HYDROGEL DRESSING 90 GM TUBE TP SCH (17:14)
[2017-07-04] MEDS: NYSTATIN CREAM 15 GM TUBE TP SCH (17:15)
--- NOTE | 2017-07-04 19:15 | NUR ---
Received report from Hanna and patient resting.On T-piece 10L aerosol SPO2 94%.Scope SR 90-91. Levophed drip infusing for BP support to keep SBP >90.GT clamped.Colostomy intact.NPO observed. IV hydration in progress via JOSH PICC line and site intact.With 3W FC draining pink tinged clear yellow urine on CBI.With multiple skin issues.Maintained on KCI mattress.Turned and repositioned.No distress noted.Continue monitoring.
[2017-07-04] MEDS: FAMOTIDINE (20 MG) 20 MG TABLET GT SCH (21:00)
[2017-07-04] MEDS: POLYETHYLENE GLYCOL 3350 17 GM POWD.PACK GT SCH (22:07)
[2017-07-04] MEDS: ATORVASTATIN 10 MG TABLET GT SCH (22:07)
--- NOTE | 2017-07-04 23:50 | NUR ---
Received call from lab patient blood culture 1 bottle GNR.Mattie Wan NP here and updated of patient lab result.Made aware patient is already on Merrem.No new order received.
[2017-07-05] VITALS (95 sets, daily range): BP systolic 85–133; BP diastolic 53–83
[2017-07-05] MEDS: NYSTATIN CREAM 15 GM TUBE TP SCH ×2 (03:25→15:50)
--- NOTE | 2017-07-05 04:00 | NUR ---
Patient resting was medicated for body aches with morphine and verbalized relief.Bathed and complete linens changed.Turned and repositioned.Wound dressing done.No further hematuria noted.Levophed drip titrated accordingly.
[2017-07-05 04:47] LABS: HEMATOCRIT 29 % (39-51); HEMOGLOBIN 9.4 g/dL (13.5-17.5); LYMPHOCYTES # (AUTO) 0.9 /CMM (0.8-4.8); LYMPHOCYTES % (AUTO) 1.8 % (20.0-44.0); MEAN CORPUSCULAR HGB CONC 32 g/dl (31.0-36.0); MEAN CORPUSCULAR VOLUME 83 fL (80-96); MONOCYTES # (AUTO) 1.1 /CMM (0.1-1.30); MONOCYTES % (AUTO) 2.2 % (2.0-12.0); NEUTROPHILS # (AUTO) 45.9 /CMM (1.8-8.9); PLATELET COUNT (AUTO) 234 /CMM (150-450); RDW COEFFICIENT OF VARIATION 20.2 (11.5-15.0); RED BLOOD CELL COUNT(AUTO) 3.52 MIL/uL (4.5-6.0)
[2017-07-05 05:02] LABS: WHITE BLOOD COUNT (AUTO) 47.8 K/uL (4.3-11.0)
[2017-07-05 05:21] LABS: THYROID STIMULATING HORMONE 0.153 uIU/mL (0.358-3.74)
[2017-07-05 05:22] LABS: ALBUMIN 1.9 g/dL (3.4-5.0); BILIRUBIN,TOTAL 0.5 mg/dL (0.2-1.0); CALCIUM, SERUM 7.8 mg/dL (8.5-10.1); CREATININE 1.3 mg/dL (0.6-1.3); MAGNESIUM 1.8 mg/dL (1.8-2.4); PHOSPHORUS 2.1 mg/dL (2.5-4.9); TOTAL PROTEIN, SERUM 6.4 g/dL (6.4-8.2)
[2017-07-05 05:33] LABS: BAND % (MANUAL) 8 % (0.0-5.0); LYMPHOCYTES % (MANUAL) 3 % (16-48); MONOCYTES % (MANUAL) 1 % (0-11.0); NEUTROPHILS % (MANUAL) 88 (42-76)
[2017-07-05] MEDS: IV NS 0.9% 1,000 ML IV PRN ×2 (05:38→19:20)
--- NOTE | 2017-07-05 06:00 | NUR ---
Lab called regarding abnormal lab result WBC 47.8.VS stable.Patient appears comfortable.Will endorse to Incoming am shift RN for continuity of care.
[2017-07-05] MEDS: METOPROLOL TARTRATE 25 MG TABLET GT SCH ×2 (08:35→17:00)
[2017-07-05] MEDS: MEROPENEM 1 G in IV NS 0.9% 100 ML IV SCH ×2 (09:25→22:00)
[2017-07-05] MEDS: VANCOMYCIN 1 GM in IV NS 0.9% 250 ML IV SCH ×2 (09:26→21:00)
[2017-07-05] MEDS: NOREPINEPHRINE 16 MG in IV D5W 500 ML IV PRN ×2 (09:32→17:52)
[2017-07-05] MEDS: CALCITRIOL 0.25 MCG CAPSULE PO SCH (09:32)
[2017-07-05] MEDS: HYDROCODONE/APAP 10/325MG 1 EA TABLET PO SCH ×2 (09:33→17:41)
[2017-07-05] MEDS: GABAPENTIN 300 MG CAPSULE GT SCH ×3 (09:33→17:41)
[2017-07-05] MEDS: CLOPIDOGREL BISULFATE 75 MG TABLET GT SCH (09:33)
[2017-07-05] MEDS: ACIDOPHILUS/BULGARICUS 1 EACH TAB.CHEW GT SCH ×3 (09:33→17:41)
[2017-07-05] MEDS: FAMOTIDINE (20 MG) 20 MG TABLET GT SCH ×2 (09:33→21:00)
[2017-07-05] MEDS: BACLOFEN (10 MG) 10 MG TABLET GT SCH ×4 (09:33→21:00)
[2017-07-05] MEDS: ESCITALOPRAM OXALATE (10 MG) 10 MG TABLET GT SCH (09:33)
[2017-07-05] MEDS: METHADONE HCL 10 MG TABLET GT SCH (09:34)
[2017-07-05] MEDS: HYDROCORTISONE SOD SUCCINATE 100 MG/2 ML VIAL IV SCH ×3 (09:34→17:41)
[2017-07-05] MEDS: HYDROGEL DRESSING 90 GM TUBE TP SCH (09:35)
[2017-07-05] MEDS ORDERED: Sodium Phosphate 15 MMOL in IV D5W 250 ML IV ONE (15:00)
--- NOTE | 2017-07-05 18:59 | NUR ---
AOX2, LEVO NOW AT 15 IZABELLA. MUKESH HERE TO SEE PT. PT OSITIVE FOR MRSA NAIRS AND KLEBSIELA IN URINE. GUSTAVO UPDATED ON MICRO RESULTS. SHE WILL PLACE THE ORDERS.
--- NOTE | 2017-07-05 19:30 | NUR ---
Received report from AM shift RN patient resting.VS stable.With T-piece 10L saturating 98%. Secretions suctioned.SR 70's.Levophed gtt infusing at 15 mcg to keep SBP> 90 via JOSH PICC LINE and will titrate accordingly.GT clamped.Colostomy intact.FC to gravity drainage with yellow urine.Turned and repositioned.Denies pain.
[2017-07-05] MEDS: MUPIROCIN OINT 2% 22 GM TUBE SCH (21:00)
[2017-07-05] MEDS ORDERED: IV NS 0.9% 250 ML BAG IV ONE (21:30)
[2017-07-05] MEDS: POLYETHYLENE GLYCOL 3350 17 GM POWD.PACK GT SCH (22:01)
[2017-07-05] MEDS: ATORVASTATIN 10 MG TABLET GT SCH (22:01)
[2017-07-06] VITALS (95 sets, daily range): BP systolic 79–137; BP diastolic 51–89
--- NOTE | 2017-07-06 02:00 | NUR ---
AM bed bath rendered.Complete linens changed.Wound dressing changed per protocol.Tolerated procedure well.Turned and repositioned.Trach site and dressing changed.Secretions suctioned and oral care done.
[2017-07-06] MEDS: NYSTATIN CREAM 15 GM TUBE TP SCH ×2 (03:33→20:12)
--- NOTE | 2017-07-06 04:00 | NUR ---
Patient denver'd down to 47-48 while asleep.Easily aroused.Afebrile.Denies pain.Turned and repositioned offloading pressure points.All iv's infusing well.
--- NOTE | 2017-07-06 07:05 | NUR ---
Patient resting.No distress noted.vs stable.Levo gtt down to 9 mcg.Report given to BRO Crawford for continuity of care.
[2017-07-06] MEDS: IV NS 0.9% 1,000 ML IV PRN (08:30)
[2017-07-06] MEDS: HYDROGEL DRESSING 90 GM TUBE TP SCH (09:00)
[2017-07-06] MEDS: HYDROCODONE/APAP 10/325MG 1 EA TABLET PO SCH ×2 (09:00→19:55)
[2017-07-06] MEDS: METOPROLOL TARTRATE 25 MG TABLET GT SCH ×2 (09:00→17:00)
[2017-07-06] MEDS: HYDROCORTISONE SOD SUCCINATE 100 MG/2 ML VIAL IV SCH ×3 (09:23→20:15)
[2017-07-06] MEDS: FAMOTIDINE (20 MG) 20 MG TABLET GT SCH ×2 (09:24→21:04)
[2017-07-06] MEDS: GABAPENTIN 300 MG CAPSULE GT SCH ×3 (09:25→20:14)
[2017-07-06] MEDS: ACIDOPHILUS/BULGARICUS 1 EACH TAB.CHEW GT SCH ×3 (09:30→20:12)
[2017-07-06] MEDS: METHADONE HCL 10 MG TABLET GT SCH (09:30)
[2017-07-06] MEDS: CLOPIDOGREL BISULFATE 75 MG TABLET GT SCH (09:30)
[2017-07-06] MEDS: BACLOFEN (10 MG) 10 MG TABLET GT SCH ×4 (09:30→21:04)
[2017-07-06] MEDS: ESCITALOPRAM OXALATE (10 MG) 10 MG TABLET GT SCH (09:31)
[2017-07-06] MEDS: MEROPENEM 1 G in IV NS 0.9% 100 ML IV SCH (09:31)
[2017-07-06] MEDS: VANCOMYCIN 1 GM in IV NS 0.9% 250 ML IV SCH (09:34)
[2017-07-06] MEDS: MUPIROCIN OINT 2% 22 GM TUBE SCH ×2 (09:42→21:04)
[2017-07-06] MEDS: CALCITRIOL 0.25 MCG CAPSULE PO SCH (09:57)
[2017-07-06 09:58] LABS: ABG PCO2 37.7 mmHg (35.0-45.0); ABG PH 7.346 (7.350-7.450); ABG PO2 87.2 mmHg (75.0-100.0); AaDO2 299.1 mmHg; COHb 0.3 % (0.5-1.5); MetHb 0.6 % (0.0-1.5); O2Hb 95.1 % (94.0-97.0); SITE, ABG Left Radial; VENT MODE, BG T-PIECE 60%
[2017-07-06] MEDS ORDERED: CEFTRIAXONE 1 G in IV D5W 50 ML IV SCH (16:00)
--- NOTE | 2017-07-06 19:30 | NUR ---
Received report from BRO Powell.Patient resting in no acute distress.VS stable.Maintained on T-piece at 10L.SPO2 98%.SR 80's.Levophed gtt infusing at 1 mcg will titrate accordingly to keep SBP>90.GT clamped and patent.FC to gravity with minimal urine no hematuria noted. Denies pain.Turned and repositioned offloading pressure points.
[2017-07-06] MEDS ORDERED: IV NS 0.9% 250 ML BAG IV ONE (20:00)
[2017-07-06] MEDS: POLYETHYLENE GLYCOL 3350 17 GM POWD.PACK GT SCH (21:48)
[2017-07-06] MEDS: ATORVASTATIN 10 MG TABLET GT SCH (21:48)
[2017-07-06] MEDS ORDERED: VANCOMYCIN 0.75 GM in IV D5W 250 ML IV SCH (22:00)
[2017-07-07] VITALS (36 sets, daily range): BP systolic 86–136; BP diastolic 55–82
[2017-07-07] MEDS: IV NS 0.9% 1,000 ML IV PRN (01:48)
--- NOTE | 2017-07-07 03:30 | NUR ---
Patient with stable BP.Levophed gtt titrated off.Continue to monitor.
[2017-07-07] MEDS: NYSTATIN CREAM 15 GM TUBE TP SCH (03:40)
[2017-07-07 05:13] LABS: EOSINOPHILS % (AUTO) 0.2 % (0.0-6.0); HEMATOCRIT 26 % (39-51); HEMOGLOBIN 8.3 g/dL (13.5-17.5); LYMPHOCYTES # (AUTO) 0.8 /CMM (0.8-4.8); LYMPHOCYTES % (AUTO) 3.8 % (20.0-44.0); MEAN CORPUSCULAR HGB CONC 32 g/dl (31.0-36.0); MEAN CORPUSCULAR VOLUME 82 fL (80-96); MONOCYTES # (AUTO) 0.7 /CMM (0.1-1.30); MONOCYTES % (AUTO) 3.4 % (2.0-12.0); NEUTROPHILS # (AUTO) 19.4 /CMM (1.8-8.9); NEUTROPHILS % (AUTO) 92.6 % (43.0-81.0); PLATELET COUNT (AUTO) 110 /CMM (150-450); RDW COEFFICIENT OF VARIATION 20.3 (11.5-15.0); RED BLOOD CELL COUNT(AUTO) 3.17 MIL/uL (4.5-6.0)
[2017-07-07 05:50] LABS: CALCIUM, SERUM 7.7 mg/dL (8.5-10.1); CREATININE 0.8 mg/dL (0.6-1.3); PHOSPHORUS 2.3 mg/dL (2.5-4.9); POTASSIUM 3.6 mmol/L (3.5-5.1)
[2017-07-07 06:19] LABS: BAND % (MANUAL) 1 % (0.0-5.0); LYMPHOCYTES % (MANUAL) 2 % (16-48); MONOCYTES % (MANUAL) 1 % (0-11.0); NEUTROPHILS % (MANUAL) 96 (42-76)
--- NOTE | 2017-07-07 07:14 | NUR ---
Patient resting.VS stable.SR.IVF infusing well.Turned and repositioned.No bm noted from colostomy.Report given to Gee for continuity of care.
[2017-07-07] MEDS: GABAPENTIN 300 MG CAPSULE GT SCH (08:59)
[2017-07-07] MEDS: BACLOFEN (10 MG) 10 MG TABLET GT SCH (08:59)
[2017-07-07] MEDS: CLOPIDOGREL BISULFATE 75 MG TABLET GT SCH (08:59)
[2017-07-07] MEDS: FAMOTIDINE (20 MG) 20 MG TABLET GT SCH (08:59)
[2017-07-07] MEDS: ACIDOPHILUS/BULGARICUS 1 EACH TAB.CHEW GT SCH (08:59)
[2017-07-07] MEDS: ESCITALOPRAM OXALATE (10 MG) 10 MG TABLET GT SCH (09:00)
[2017-07-07] MEDS: CALCITRIOL 0.25 MCG CAPSULE PO SCH (09:00)
[2017-07-07] MEDS: METHADONE HCL 10 MG TABLET GT SCH (09:00)
[2017-07-07] MEDS: HYDROCORTISONE SOD SUCCINATE 100 MG/2 ML VIAL IV SCH (09:00)
[2017-07-07] MEDS: HYDROCODONE/APAP 10/325MG 1 EA TABLET PO SCH (09:00)
[2017-07-07] MEDS: HYDROGEL DRESSING 90 GM TUBE TP SCH (09:01)
[2017-07-07] MEDS: MUPIROCIN OINT 2% 22 GM TUBE SCH (09:01)
--- NOTE | 2017-07-07 11:56 | NUR ---
RN NOTE: PATIENT TRANSFERRED TO [facility] SUB ACUTE ALERT AWAKE ORIENTEDX2. ABLE TO MOUTH WORDS. TRAC INTACT, T-PIECE ORDERED, NO BREATHING DISTRESS NOTED. DENIES PAIN /DISCOMFORT. DISCHARGE WITH F/C & PICC LINE TO RIGHT UPPER ARM. REPORT GIVEN TO REZA CRABTREE.
[2017-07-07] MEDS ORDERED: CEFT1VIA15 IV (21:02)
[2017-07-08 08:50] LABS: BASOPHILS % (AUTO) 0.3 % (0.0-2.0); EOSINOPHILS % (AUTO) 0.3 % (0.0-6.0); HEMATOCRIT 30 % (39-51); HEMOGLOBIN 9.2 g/dL (13.5-17.5); LYMPHOCYTES # (AUTO) 1.4 /CMM (0.8-4.8); LYMPHOCYTES % (AUTO) 14.1 % (20.0-44.0); MEAN CORPUSCULAR HGB CONC 31 g/dl (31.0-36.0); MEAN CORPUSCULAR VOLUME 83 fL (80-96); MONOCYTES # (AUTO) 0.9 /CMM (0.1-1.30); MONOCYTES % (AUTO) 8.9 % (2.0-12.0); NEUTROPHILS # (AUTO) 7.7 /CMM (1.8-8.9); NEUTROPHILS % (AUTO) 76.4 % (43.0-81.0); PLATELET COUNT (AUTO) 90 /CMM (150-450); RDW COEFFICIENT OF VARIATION 21.2 (11.5-15.0); RED BLOOD CELL COUNT(AUTO) 3.58 MIL/uL (4.5-6.0); WHITE BLOOD COUNT (AUTO) 10.1 K/uL (4.3-11.0)
[2017-07-08 09:57] LABS: BAND % (MANUAL) 3 % (0.0-5.0); EOSINOPHILS % (MANUAL) 1 % (0-4); LYMPHOCYTES % (MANUAL) 16 % (16-48); MONOCYTES % (MANUAL) 10 % (0-11.0); NEUTROPHILS % (MANUAL) 70 (42-76)
[2017-09-18] MEDS ORDERED: HYDR1SOL TP (20:50)
== END 2017-07-07 11:40 | DRG 871 ==
LOC: ER 06:24 → TELE-TD 08:19 → ICU 09:33
PROVIDERS: ADMIT Nurse Practitioner Acute Care; ATTEND Nurse Practitioner Acute Care
PROC: 05HM33Z Insertion of Infusion Device into Right Internal Jugular Vein, Percutaneous Approach (ICD-10-PCS; principal; 2017-07-04)
PROC: B543ZZA Ultrasonography of Right Jugular Veins, Guidance (ICD-10-PCS; 2017-07-04)
DX: A41.59 Other Gram-negative sepsis (principal); I21.A1 Myocardial infarction type 2; J96.21 Acute and chronic respiratory failure with hypoxia; R65.21 Severe sepsis with septic shock; E46 Unspecified protein-calorie malnutrition; L89.314 Pressure ulcer of right buttock, stage 4; G92 Toxic encephalopathy; B49 Unspecified mycosis; J18.9 Pneumonia, unspecified organism; R53.2 Functional quadriplegia; N17.9 Acute kidney failure, unspecified; N39.0 Urinary tract infection, site not specified; E87.1 Hypo-osmolality and hyponatremia; J44.0 Chronic obstructive pulmonary disease with (acute) lower respiratory infection; N12 Tubulo-interstitial nephritis, not specified as acute or chronic; I13.0 Hypertensive heart and chronic kidney disease with heart failure and stage 1 through stage 4 chronic kidney disease, or unspecified chronic kidney disease; Z93.0 Tracheostomy status; K21.9 Gastro-esophageal reflux disease without esophagitis; Z68.29 Body mass index [BMI] 29.0-29.9, adult; D72.829 Elevated white blood cell count, unspecified; D64.9 Anemia, unspecified; R31.9 Hematuria, unspecified; Q54.9 Hypospadias, unspecified; G35 Multiple sclerosis; Z93.1 Gastrostomy status; N35.9 Urethral stricture, unspecified; R13.10 Dysphagia, unspecified; N18.9 Chronic kidney disease, unspecified; G47.33 Obstructive sleep apnea (adult) (pediatric); E78.5 Hyperlipidemia, unspecified; Z93.3 Colostomy status; Z87.440 Personal history of urinary (tract) infections; Z66 Do not resuscitate; Z88.0 Allergy status to penicillin; Z22.322 Carrier or suspected carrier of Methicillin resistant Staphylococcus aureus; I50.9 Heart failure, unspecified
CPT/HCPCS: 31720; 36415; 36569; 36600; 71045-TC; 80048-TC; 80053-TC; 80061-TC; 80076-TC; 80202-TC; 81000-TC; 82803-TC; 83605-TC; 83690-TC; 83735-TC; 83880; 84100-TC; 84443-TC; 84484-TC; 85025-TC; 85730-TC; 86850-TC; 87040-TC; 87081-TC; 87086-TC; 87186-TC; 93307-TC; 94640-TC; A4216; A4217; A4606; A6248; A6253; A6403; A9563; C1751; J0692; J0696; J1720; J2185; J2270; J3370; J7030; J7042; J7050; J7060; Z7610

== ENCOUNTER 2017-09-29 15:58 | Inpatient (IN) | payer MEDICARE, MEDICAID ==
[~2017-09-29] VITALS: Ht 177.8 cm; Wt 80.8 kg
[~2017-09-29 15:58] MED LIST changes: -ALLA266C2 TP; +AMIN30LI25 GT; -AMIN30LI4 GT; +ASCO-340 GT; -ASCO500S2 GT; -BALS60OI TP; +CEFT1VIA15 IV; -CHLO473M5 MM; +DEXTROSE IV; +GEL100GE MC; +HYDR-548 GT; +HYDR1SOL TP; -HYDR1TOW4 TP; -IMIQ1CRE11 TP; +LACT-246 PO; +METH10TA2 GT; +MINE105O TP; -MINE396O3 TP; +NYST15CR15 TP; +POLY17PO4 PO; +SODI473S9 MC; +SODIUM CHLORIDE IV; -TUBE5VIA2 ID; -VITA56.7 TP; +ZINC220T GT
--- NOTE | 2017-09-29 19:10 | NUR ---
ADMITTED A 62 Y/O FROM [place] WITH A DX. OF SEPSIS, HYPOTENSION, RESPIRATORY FAILURE, MS, HYPERLIPIDEMIA, DEPRESSION, CHRONIC PAIN, MUSCLE SPASM. WITH TRACHEOSTOMY SHILEY #8 CUFFED CONNECTED TO THE VENT WITH CPAP PS 12, PEEP 5, 0% FIO2 AND TOLERATED WELL O2 100%. NO SOB, NO ACUTE DISTRESS, BREATHING EVEN AND UNLABORED, NO S/S OF PAIN AND DISCOMFORT. ON GT FEEDING (PEG) RUNNING 75 CC/HR AND TOLERATED WELL. GT SITE INTACT AND PATEN, FLUSHED ORDERED. GUZMAN CATHETER IN PLACE AND DRAINING CLEAR JUDY URINE. NEPHROSTOMY TUBE IN PLACE DRAINING YELLOWISH FLUID. COLOSTOMY IN PLACE AND NOTED WITH MEDIUM SOFT STOOL. BODY CHECK DONE. PICTURE TAKEN. PATIENT COOPERATIVE. PER SHRUTI ID, CONTINUE COLISTIN, VANCOMYCIN AND CEFEPIME ORDERED X 7 DAYS. PATIENT IS UNDER THE CARE OF DR. CALVIN. NOTIFIED DR. CALVIN OF THE ADMISSION WITH ORDERS GIVEN NOTED AND CARRIED OUT. KEPT CLEAN, DRY AND COMFORTABLE. WILL CONTIUNE TO MONITOR.
[2017-09-29 19:49] VITALS: BP 116/73
[2017-09-29] MEDS ORDERED: PROSOURCE / PROSTAT (PYXIS) 30 ML UDC GT SCH (21:00)
[2017-09-29] MEDS ORDERED: FAMOTIDINE (20 MG) 20 MG TABLET PO SCH (21:00)
[2017-09-29] MEDS ORDERED: BACLOFEN (10 MG) 10 MG TABLET PO SCH (21:00)
[2017-09-29] MEDS ORDERED: MULTIVIT, IRON, MIN NO. 8, FA 1 TAB PO SCH (21:00)
[2017-09-29] MEDS ORDERED: ZINC SULFATE 220 MG CAPSULE PO SCH (21:00)
[2017-09-29] MEDS: ENOXAPARIN SODIUM 40 MG/0.4 ML DISP.SYRIN SQ SCH (22:00)
[2017-09-29] MEDS: ATORVASTATIN 10 MG TABLET GT SCH (22:00)
[2017-09-29] MEDS: POLYETHYLENE GLYCOL 3350 17 GM POWD.PACK PO SCH (22:00)
--- NOTE | 2017-09-29 22:20 | NUR ---
PT RCYOUSIF'D ON MECHANICAL VENT WITH CHARTED SETTINGS. SX DONE. PT TRACH PATENT AND SECURE. AMBU BAG AT BEDSIDE. VENT PLUGGED INTO RED OUTLET. ALARMS ARE ON AND AUDIBLE. WILL CONTINUE TO MONITOR. Addendum: 09/29/17 at 2221 by LUCIANA TRIMBLE RT Amended: Links added.
[2017-09-29] MEDS: COLISTIMETHATE SODIUM 150 MG VIAL NEB SCH (23:43)
--- NOTE | 2017-09-29 23:45 | NUR ---
RT NOTE TX NOT GIVEN DUE TO MEDICATION NOT AVAILABLE. CHARGE NURSE BLAKE ZHENG.
[2017-09-30] MEDS ORDERED: HYDROCODONE/APAP 5/325MG 1 EACH TABLET PO PRN (01:00)
[2017-09-30] MEDS: ALBUTEROL HALF STRENGTH 1.25 MG/3 ML VIAL.NEB NEB SCH ×4 (01:27→19:09)
[2017-09-30] MEDS: IPRATROPIUM NEB FS 0.5 MG/2.5 ML AMPUL.NEB NEB SCH ×4 (01:27→19:09)
[2017-09-30] MEDS ORDERED: CEFEPIME 1 GM VIAL IM SCH (02:00)
[2017-09-30] MEDS ORDERED: CEFEPIME 1 GM VIAL IV SCH ×5 (02:00→09:00)
[2017-09-30] MEDS: VANCOMYCIN 0.75 GM in IV NS 0.9% 250 ML IV SCH ×2 (05:55→23:06)
[2017-09-30 07:37] VITALS: BP 113/74
[2017-09-30] MEDS: NYSTATIN/TRIAMCIN CREAM 15 GM TUBE TP SCH ×6 (09:00→21:00)
[2017-09-30] MEDS: Z GUARD REMEDY 4 OZ OINT TP SCH ×6 (09:00→21:00)
[2017-09-30] MEDS: HYDROGEL DRESSING 90 GM TUBE TP SCH ×2 (09:00→21:00)
[2017-09-30] MEDS: MINERAL OIL/PETROL OINT 396 GM JAR TP SCH ×2 (09:00→21:00)
[2017-09-30] MEDS ORDERED: ALLA266C2 TP (09:28)
[2017-09-30] MEDS ORDERED: MINE396O3 TP (09:28)
[2017-09-30] MEDS ORDERED: COLI150V12 NEB (09:28)
[2017-09-30] MEDS ORDERED: NUT.237L30 GT (09:28)
[2017-09-30] MEDS ORDERED: CLOT15CR63 TP (09:28)
[2017-09-30] MEDS ORDERED: MAG30ORA GT (09:28)
[2017-09-30] MEDS ORDERED: CEFE1VIA3 SQ (09:28)
[2017-09-30] MEDS ORDERED: VANC750P8 IV (09:28)
[2017-09-30] MEDS ORDERED: SODI473S8 TOP (09:28)
[2017-09-30] MEDS ORDERED: ALBUTEROL HALF STRENGTH 1.25 MG/3 ML VIAL.NEB NEB PRN (09:30)
[2017-09-30] MEDS ORDERED: ONDANSETRON 4 MG TAB.RAPDIS GT PRN (09:30)
[2017-09-30] MEDS ORDERED: BISACODYL SUPP (10 MG) 10 MG/SUPP.RECT SUPP.RECT RC PRN (09:30)
[2017-09-30] MEDS ORDERED: IPRATROPIUM NEB FS 0.5 MG/2.5 ML AMPUL.NEB NEB PRN (09:30)
[2017-09-30] MEDS ORDERED: MAG HYDROX/AL HYDROX/SIMETH 30 ML UDC GT PRN (09:30)
[2017-09-30] MEDS: CALCIUM CARBONATE 500 MG TAB.CHEW GT SCH ×3 (09:46→17:29)
[2017-09-30] MEDS: CALCITRIOL 0.25 MCG CAPSULE PO SCH (09:46)
[2017-09-30] MEDS: MULTIVIT, IRON, MIN NO. 8, FA 1 TAB GT SCH (09:46)
[2017-09-30] MEDS: ACIDOPHILUS/BULGARICUS 1 EACH TAB.CHEW GT SCH ×3 (09:46→17:29)
[2017-09-30] MEDS: ASCORBIC ACID 500 MG TABLET GT SCH ×2 (09:46→17:29)
[2017-09-30] MEDS: FAMOTIDINE (20 MG) 20 MG TABLET GT SCH ×2 (09:46→21:00)
[2017-09-30] MEDS: BACLOFEN (10 MG) 10 MG TABLET GT SCH ×4 (09:46→21:00)
[2017-09-30] MEDS: ESCITALOPRAM OXALATE (10 MG) 10 MG TABLET GT SCH (09:46)
[2017-09-30] MEDS: METHADONE HCL 10 MG TABLET GT SCH (10:07)
[2017-09-30] MEDS: COLISTIMETHATE SODIUM 150 MG VIAL NEB SCH ×2 (10:15→23:12)
--- NOTE | 2017-09-30 12:31 | NUR ---
Seen and examined by Dr. Ugarte, notified that patient has apneic episode at night. Patient currently on CPAP mode. Dr. Ugarte said it is fine and he will order patient to be on cool aerosol on Monday.
[2017-09-30] MEDS: GABAPENTIN 300 MG CAPSULE GT SCH ×2 (12:47→17:29)
[2017-09-30 12:51] VITALS: BP 112/62
[2017-09-30 14:39] VITALS: BP 121/69
[2017-09-30 16:10] VITALS: BP 120/68
--- NOTE | 2017-09-30 16:31 | NUR ---
RT RECD PT TRACHED INTACT AND SECURED ON MECH VENT TERRANCE ORDERED SETTINGS. VENT PLUGGED ON RED OUTLET ALARMS ON AND AUDIBLE. TX GIVEN TERRANCE WELL NO ADVERSE REACTION NOTED ATT, WILL CONTINUE TO MONITOR
[2017-09-30] MEDS: CEFEPIME 1 GM in IV D5W 50 ML IV SCH (17:15)
--- NOTE | 2017-09-30 17:50 | NUR ---
Notified family Janiya Bess that patient is readmitted to [facility] subacute with ventilator, stable. Currently patient on GT feeding and will have ST eval for swallowing before we can resume his feeding. Appreciated the call. Left a message to resident's bother Mo Marley re: readmission.
--- NOTE | 2017-09-30 18:21 | NUR ---
SA RN NOTES PATIENT RESTING INSIDE ROOM. AWAKE, ALERT, AROUSABLE THROUGH VERBAL AND TACTILE STIMULI. NO ACUTE DISTRESS NOTED AT THIS TIME. CONTINUE WITH IV ATB TX ORDERED AND TOLERATING WELL. NO S/S OF ALLERGIC REACTION NOTED. PATIENT COMPLAINT WITH WOUND CARE TX, DRESSING CHANGE DONE TO WOUND SITES, NOTED WITH SEROSANGUINEOUS DRAINAGE ON SITES ON BUTTOCKS/SACRUM. PATIENT NOTED WITH EPISODES OF NON-COMPLIANCE WITH TURNING AND REPOSITIONING RISK AND BENEFITS EXPLAINED. WILL CONTINUE TO MONITOR. BED LOCKED AND IN LOW POSITION. BILATERAL SIDE RAILS UP AND LOCKED. CALL LIGHT WITHIN EASY REACH
[2017-09-30 18:41] VITALS: BP 126/68
[2017-09-30 20:24] VITALS: BP 118/74
[2017-09-30] MEDS: ENOXAPARIN SODIUM 40 MG/0.4 ML DISP.SYRIN SQ SCH (21:00)
[2017-09-30] MEDS: PROSOURCE / PROSTAT (PYXIS) 30 ML UDC GT SCH (21:00)
[2017-09-30] MEDS: ZINC SULFATE 220 MG CAPSULE PO SCH (21:00)
[2017-09-30] MEDS: CRANBERRY EXT/C/L. SPOROGENES 405 MG/TAB TABLET GT SCH (21:00)
[2017-09-30] MEDS: POLYETHYLENE GLYCOL 3350 17 GM POWD.PACK GT SCH (22:00)
[2017-09-30] MEDS: ATORVASTATIN 10 MG TABLET GT SCH (22:59)
[2017-10-01 00:12] VITALS: BP 121/71
[2017-10-01] MEDS: IPRATROPIUM NEB FS 0.5 MG/2.5 ML AMPUL.NEB NEB SCH ×3 (00:39→20:39)
[2017-10-01] MEDS: ALBUTEROL HALF STRENGTH 1.25 MG/3 ML VIAL.NEB NEB SCH ×3 (00:39→19:30)
[2017-10-01] MEDS: CEFEPIME 1 GM in IV D5W 50 ML IV SCH ×2 (02:00→14:00)
[2017-10-01 06:15] VITALS: BP 108/69
[2017-10-01 07:35] VITALS: BP 126/69
[2017-10-01] MEDS: GABAPENTIN 300 MG CAPSULE GT SCH ×3 (09:00→17:00)
[2017-10-01] MEDS: NYSTATIN/TRIAMCIN CREAM 15 GM TUBE TP SCH ×6 (09:00→22:23)
[2017-10-01] MEDS: ACIDOPHILUS/BULGARICUS 1 EACH TAB.CHEW GT SCH ×3 (09:00→17:00)
[2017-10-01] MEDS: CALCIUM CARBONATE 500 MG TAB.CHEW GT SCH ×3 (09:00→17:00)
[2017-10-01] MEDS: CALCITRIOL 0.25 MCG CAPSULE PO SCH (09:00)
[2017-10-01] MEDS: HYDROGEL DRESSING 90 GM TUBE TP SCH ×2 (09:00→22:23)
[2017-10-01] MEDS: ASCORBIC ACID 500 MG TABLET GT SCH ×2 (09:00→17:00)
[2017-10-01] MEDS: METHADONE HCL 10 MG TABLET GT SCH (09:00)
[2017-10-01] MEDS: BACLOFEN (10 MG) 10 MG TABLET GT SCH ×4 (09:00→21:37)
[2017-10-01] MEDS: FAMOTIDINE (20 MG) 20 MG TABLET GT SCH ×2 (09:00→21:37)
[2017-10-01] MEDS: MULTIVIT, IRON, MIN NO. 8, FA 1 TAB GT SCH (09:00)
[2017-10-01] MEDS: ESCITALOPRAM OXALATE (10 MG) 10 MG TABLET GT SCH (09:00)
[2017-10-01] MEDS: Z GUARD REMEDY 4 OZ OINT TP SCH ×6 (09:00→22:22)
[2017-10-01] MEDS: MINERAL OIL/PETROL OINT 396 GM JAR TP SCH ×2 (09:00→21:38)
[2017-10-01] MEDS: COLISTIMETHATE SODIUM 150 MG VIAL NEB SCH ×2 (09:00→21:38)
[2017-10-01] MEDS ORDERED: CEFEPIME 1 GM VIAL IV ONE (10:29)
[2017-10-01 11:05] LABS: ABG BASE EXCESS 5.8 mmol/L; ABG OXYGEN SATURATION 99.3 % (92.0-98.5); ABG PCO2 38.6 mmHg (35.0-45.0); ABG PH 7.499 (7.350-7.450); ABG PO2 295.7 mmHg (75.0-100.0); COHb 0.2 % (0.5-1.5); MetHb 0.6 % (0.0-1.5); O2Hb 98.5 % (94.0-97.0); PEEP,BG 5 cm H2O; SITE, ABG Right Brachial; VENT MODE, BG CPAP
[2017-10-01] MEDS ORDERED: FEE PK DOSING 1 MIN EA MC ONE (11:06)
--- NOTE | 2017-10-01 11:26 | NUR ---
Dr. Ugarte notified of ABG result, with order to put patient on cool aerosol in AM, ABG 1 hour after later. Order carried out. RT notified.
[2017-10-01] MEDS: VANCOMYCIN 0.75 GM in IV NS 0.9% 250 ML IV SCH (18:24)
--- NOTE | 2017-10-01 18:30 | NUR ---
Resident stable with current vent setting of CPAP, he is annoyed when the ventilator is alarming. Notified patient that he will start on cool aerosol tomorrow and if tolerated he will stay with it. He gave a big smile. Patient continue on IV ATB for sepsis, no adverse reaction noted. Midline in the R upper arm patent. GT feeding tolerated, no vomiting, Continue with local treatment in his wounds. F/C draining yelllow urine, nephrostomy tube in place draining well with yellow color urine. Patient also made aware that ST eval will be done tomorrow to see whether he can eat. Appreciated the information and started "quacking" as his way of saying "thank you".
[2017-10-01 20:00] VITALS: BP 112/63
--- NOTE | 2017-10-01 20:42 | NUR ---
pt received on vent via trach with charted settings. airway patent. trach secure via trach tie. pt alert. ambu bag and back up trach at bedside. alarms set and audible, disconnect alarms checked plugged into red outlet suctioned a moderate amount of thick white secretions. pt receiving breathing tx q6 at this time. pt hob at 30 degrees. suctioned oral secretion from pts mouth Addendum: 10/01/17 at 2042 by KIANA BEY RT Amended: Links added.
[2017-10-01] MEDS: ZINC SULFATE 220 MG CAPSULE PO SCH (21:37)
[2017-10-01] MEDS: CRANBERRY EXT/C/L. SPOROGENES 405 MG/TAB TABLET GT SCH (21:37)
[2017-10-01] MEDS: PROSOURCE / PROSTAT (PYXIS) 30 ML UDC GT SCH (21:37)
[2017-10-01] MEDS: POLYETHYLENE GLYCOL 3350 17 GM POWD.PACK GT SCH (21:38)
[2017-10-01] MEDS: ENOXAPARIN SODIUM 40 MG/0.4 ML DISP.SYRIN SQ SCH (21:38)
[2017-10-01] MEDS: ATORVASTATIN 10 MG TABLET GT SCH (21:38)
[2017-10-01] MEDS: HYDROCODONE/APAP 5/325MG 1 EACH TABLET GT PRN (21:42)
[2017-10-02] VITALS: BP 132/82
[2017-10-02] MEDS: CEFEPIME 1 GM in IV D5W 50 ML IV SCH ×2 (01:31→13:55)
[2017-10-02] MEDS: IPRATROPIUM NEB FS 0.5 MG/2.5 ML AMPUL.NEB NEB SCH ×4 (02:05→20:50)
[2017-10-02] MEDS: ALBUTEROL HALF STRENGTH 1.25 MG/3 ML VIAL.NEB NEB SCH ×4 (02:05→19:30)
[2017-10-02 04:00] VITALS: BP 117/89
[2017-10-02 07:21] LABS: CALCIUM, SERUM 9.4 mg/dL (8.5-10.1); CREATININE 0.8 mg/dL (0.6-1.3); POTASSIUM 4.9 mmol/L (3.5-5.1)
--- NOTE | 2017-10-02 08:35 | NUR ---
RT NOTE PT PLACED ON CA PER MD AMAYA ORDER. PT AWAKE AND ALERT. PT PLACED ON TRACH MASK. CUFF DEFLATED. NO DISTRESS NOTED AT MOMENT. TRACH MIDLINE AND SECURE. SPO2 97% HR 86. RN NOTIFIED. WILL CONTINUE TO MONITOR. Addendum: 10/02/17 at 0837 by KAJAL ARAIZA RT Amended: Links added.
[2017-10-02] MEDS: COLISTIMETHATE SODIUM 150 MG VIAL NEB SCH ×2 (09:00→21:00)
[2017-10-02] MEDS: ACIDOPHILUS/BULGARICUS 1 EACH TAB.CHEW GT SCH ×3 (09:28→16:45)
[2017-10-02] MEDS: ESCITALOPRAM OXALATE (10 MG) 10 MG TABLET GT SCH (09:29)
[2017-10-02] MEDS: BACLOFEN (10 MG) 10 MG TABLET GT SCH ×4 (09:29→21:37)
[2017-10-02] MEDS: MULTIVIT, IRON, MIN NO. 8, FA 1 TAB GT SCH (09:30)
[2017-10-02] MEDS: CALCITRIOL 0.25 MCG CAPSULE PO SCH (09:30)
[2017-10-02] MEDS: FAMOTIDINE (20 MG) 20 MG TABLET GT SCH ×2 (09:30→21:37)
[2017-10-02] MEDS: CALCIUM CARBONATE 500 MG TAB.CHEW GT SCH ×3 (09:30→16:47)
[2017-10-02] MEDS: ASCORBIC ACID 500 MG TABLET GT SCH ×2 (09:30→16:47)
[2017-10-02] MEDS: GABAPENTIN 300 MG CAPSULE GT SCH ×3 (09:30→16:46)
[2017-10-02] MEDS: METHADONE HCL 10 MG TABLET GT SCH (09:31)
--- NOTE | 2017-10-02 09:50 | NUR ---
animal nursery worker contacted resident's [id number]-zk-omt Vilma via email. She stated that she is still in [place] but will be returning shorty and plans to come in on Monday10/04/2017 to sign admission paperwork. SW will complete the intake paperwork with her during that time. Biopsychosocial assessment was completed and entered.
[2017-10-02 10:14] VITALS: BP 121/87
[2017-10-02 10:34] LABS: ABG BASE EXCESS 7.7 mmol/L; ABG OXYGEN SATURATION 97.7 % (92.0-98.5); ABG PCO2 51.6 mmHg (35.0-45.0); ABG PH 7.425 (7.350-7.450); ABG PO2 113.7 mmHg (75.0-100.0); AaDO2 39.6 mmHg; COHb 0.3 % (0.5-1.5); MetHb 0.7 % (0.0-1.5); O2Hb 96.7 % (94.0-97.0); SITE, ABG Right Radial; VENT MODE, BG CA 30%
--- NOTE | 2017-10-02 10:54 | NUR ---
Pt on cool aerosol, tolerating well. Relayed ABG result to Dr. Ugarte. He ordered to continue cool aerosol as pt tolerates.
--- NOTE | 2017-10-02 11:31 | NUR ---
Spoke with [facility] pharmacist Hector. He said they will send pt's Vancomycin and Maxipime. Received order to do Vancomycin trough, BUN , Cr on 10/03/17 at 0530 am.
[2017-10-02] MEDS: VANCOMYCIN 0.75 GM in IV NS 0.9% 250 ML IV SCH (12:00)
--- NOTE | 2017-10-02 12:28 | NUR ---
WOUND CARE CONSULT WOUND CARE RECEIVED CONSULT FOR TREATMENT EVALUATION. WOUND CARE WILL DEFER CONSULT AND TREATMENT EVALUATION TO THE SURGICAL TEAM WHO ARE CURRENTLY FOLLOWING. WOUND CARE WILL SEE PRN.
--- NOTE | 2017-10-02 15:00 | NUR ---
Called Dr. Zimmerman to ask about nephrostomy tube care. Left message on his voice mailbox.
[2017-10-02] MEDS: MINERAL OIL/PETROL OINT 396 GM JAR TP SCH ×2 (15:36→22:10)
[2017-10-02] MEDS: Z GUARD REMEDY 4 OZ OINT TP SCH ×5 (15:37→21:00)
[2017-10-02] MEDS: DAKINS QUARTER STRENGTH (0.125%) 480 ML BOTTLE TOP SCH (15:39)
[2017-10-02] MEDS: CLOTRIMAZOLE 1% 15 GM TUBE TP SCH ×2 (15:39→16:47)
--- NOTE | 2017-10-02 20:00 | NUR ---
Received pt on cool aerosol via trach as ordered,margarita well. Airway patent. Trach tube secured with trach tie. Pt alert and oriented with no resp distress noted.
[2017-10-02 20:03] VITALS: BP 132/72
--- NOTE | 2017-10-02 20:52 | NUR ---
pt received on aerosol via trach with charted settings. airway patent. trach secure via trach tie. pt alert. ambu bag and back up trach at bedside. suctioned a small amount of thick white secretions. pt receiving breathing tx q6 at this time. pt hob at 30 degrees. suctioned oral secretion from pts mouth Addendum: 10/02/17 at 2053 by KIANA BEY RT Amended: Links added.
[2017-10-02] MEDS: PROSOURCE / PROSTAT (PYXIS) 30 ML UDC GT SCH (21:37)
[2017-10-02] MEDS: CRANBERRY EXT/C/L. SPOROGENES 405 MG/TAB TABLET GT SCH (21:37)
[2017-10-02] MEDS: HYDROCODONE/APAP 5/325MG 1 EACH TABLET PO SCH (21:37)
[2017-10-02] MEDS: ENOXAPARIN SODIUM 40 MG/0.4 ML DISP.SYRIN SQ SCH (21:38)
[2017-10-02] MEDS: POLYETHYLENE GLYCOL 3350 17 GM POWD.PACK GT SCH (21:38)
[2017-10-02] MEDS: ATORVASTATIN 10 MG TABLET GT SCH (21:38)
[2017-10-02] MEDS: ZINC SULFATE 220 MG CAPSULE PO SCH (21:38)
[2017-10-03] MEDS: ALBUTEROL HALF STRENGTH 1.25 MG/3 ML VIAL.NEB NEB SCH ×4 (01:33→20:23)
[2017-10-03] MEDS: IPRATROPIUM NEB FS 0.5 MG/2.5 ML AMPUL.NEB NEB SCH ×4 (01:33→20:23)
[2017-10-03] MEDS: CEFEPIME 1 GM in IV D5W 50 ML IV SCH ×2 (01:41→14:00)
[2017-10-03] MEDS: VANCOMYCIN 0.75 GM in IV NS 0.9% 250 ML IV SCH (06:00)
[2017-10-03 06:44] LABS: CALCIUM, SERUM 9.2 mg/dL (8.5-10.1); CREATININE 0.8 mg/dL (0.6-1.3); POTASSIUM 4.5 mmol/L (3.5-5.1)
[2017-10-03 08:09] VITALS: BP 146/81
[2017-10-03] MEDS: COLISTIMETHATE SODIUM 150 MG VIAL NEB SCH ×2 (08:21→21:00)
[2017-10-03] MEDS: ESCITALOPRAM OXALATE (10 MG) 10 MG TABLET GT SCH (09:00)
[2017-10-03] MEDS: BACLOFEN (10 MG) 10 MG TABLET GT SCH ×4 (09:00→21:11)
[2017-10-03] MEDS: MINERAL OIL/PETROL OINT 396 GM JAR TP SCH ×2 (09:00→21:45)
[2017-10-03] MEDS: DAKINS QUARTER STRENGTH (0.125%) 480 ML BOTTLE TOP SCH ×2 (09:00→21:45)
[2017-10-03] MEDS: CALCIUM CARBONATE 500 MG TAB.CHEW GT SCH ×3 (09:00→17:00)
[2017-10-03] MEDS: GABAPENTIN 300 MG CAPSULE GT SCH ×3 (09:00→17:00)
[2017-10-03] MEDS: CALCITRIOL 0.25 MCG CAPSULE PO SCH (09:00)
[2017-10-03] MEDS: FAMOTIDINE (20 MG) 20 MG TABLET GT SCH ×2 (09:00→21:11)
[2017-10-03] MEDS: ACIDOPHILUS/BULGARICUS 1 EACH TAB.CHEW GT SCH ×3 (09:00→17:00)
[2017-10-03] MEDS: ASCORBIC ACID 500 MG TABLET GT SCH ×2 (09:00→17:00)
[2017-10-03] MEDS: MULTIVIT, IRON, MIN NO. 8, FA 1 TAB GT SCH (09:00)
[2017-10-03] MEDS: METHADONE HCL 10 MG TABLET GT SCH (09:00)
[2017-10-03] MEDS: CLOTRIMAZOLE 1% 15 GM TUBE TP SCH ×2 (09:00→17:00)
--- NOTE | 2017-10-03 09:52 | NUR ---
PT REC'D ON COOL AEROSOL VIA [employer] #8DCT(CUFF DEFLATED). PMV IS CURRENTLY ON PT. PT IS AWAKE AND ALERT WITH NO RESP. DISTRESS NOTED. PT REFUSED SX YET DID RECEIVE BREATHING TX. WILL CONTINUE TO MONITOR PT. Addendum: 10/03/17 at 0954 by MAURICE DIEZ RT Amended: Links added.
--- NOTE | 2017-10-03 13:53 | NUR ---
RAVI went to visit with the resident and he was happy to see her. Prior to entering room, resident's nurse informed SW that resident was complaining of his tooth hurting. When RAVI asked if resident had any pain, resident stated that he did not want wants to have a general exam. RAVI did inform him that he will be going to the office of Dr. Marianne TERRAZAS as he currently has a cavity and Addendum: 10/03/17 at 1451 by HECTOR RODRIGUES When RAVI asked if resident had any pain, resident stated that he did not and wants to have a general exam. RAVI did inform him that he will be going to the office of Dr. Marianne TERRAZAS as he currently has a cavity that needs to be filled and that SW will make an appointment for him. Resident currently on weaning trials. RAVI informed him that dentist is able to do a general exam once he is there to get his cavity filled. Resident insisting on visiting his own dentist in [place], [place] but RAVI explained to him that this was not possible because that dentist is not contracted. RAVI will keep him posted as to dental date.
[2017-10-03] MEDS: HYDROCODONE/APAP 5/325MG 1 EACH TABLET PO SCH ×2 (14:22→21:12)
--- NOTE | 2017-10-03 17:15 | NUR ---
Vanco trough 11 relayed to [facility] IV pharmacy and iv pharmacist Hector ordered to continue the same dose of IV Vancomycin 750 mg Q18hrs until 10/08/17.New orders noted and carried out. Addendum: 10/03/17 at 1726 by ANA CALDERÓN RN No more level is needed unless the treatment is extended.
--- NOTE | 2017-10-03 20:25 | NUR ---
pt received on aerosol via trach with charted settings. airway patent. trach secure via trach tie. pt alert. ambu bag and back up trach at bedside. suctioned a small amount of thick white secretions. pt receiving breathing tx q6 at this time. pt hob at 30 degrees. suctioned oral secretion from pts mouth Addendum: 10/03/17 at 2025 by KIANA BEY RT Amended: Links added.
[2017-10-03 20:33] VITALS: BP 100/69
[2017-10-03] MEDS: CRANBERRY EXT/C/L. SPOROGENES 405 MG/TAB TABLET GT SCH (21:11)
[2017-10-03] MEDS: PROSOURCE / PROSTAT (PYXIS) 30 ML UDC GT SCH (21:11)
[2017-10-03] MEDS: ZINC SULFATE 220 MG CAPSULE PO SCH (21:12)
[2017-10-03] MEDS: ATORVASTATIN 10 MG TABLET GT SCH (21:12)
[2017-10-03] MEDS: ENOXAPARIN SODIUM 40 MG/0.4 ML DISP.SYRIN SQ SCH (21:12)
[2017-10-03] MEDS: POLYETHYLENE GLYCOL 3350 17 GM POWD.PACK GT SCH (22:14)
[2017-10-04] MEDS: ALBUTEROL HALF STRENGTH 1.25 MG/3 ML VIAL.NEB NEB SCH ×4 (01:42→19:46)
[2017-10-04] MEDS: IPRATROPIUM NEB FS 0.5 MG/2.5 ML AMPUL.NEB NEB SCH ×4 (01:42→19:45)
[2017-10-04] MEDS: CEFEPIME 1 GM in IV D5W 50 ML IV SCH ×2 (02:00→14:00)
[2017-10-04 07:52] LABS: CALCIUM, SERUM 9.2 mg/dL (8.5-10.1); CREATININE 0.8 mg/dL (0.6-1.3); POTASSIUM 4.7 mmol/L (3.5-5.1)
[2017-10-04 07:55] VITALS: BP 103/72
--- NOTE | 2017-10-04 08:21 | NUR ---
RT PT RECEIVED TRACHED ON COOL AEROSOL, TOLERATING WELL. PT IS AWAKE AND ALERT, PT SX'D. NO RESPIRATORY DISTRESS NOTED AT THIS TIME, WILL CONTINUE TO MONITOR. Addendum: 10/04/17 at 1035 by ESPERANZA HOOPER RT Amended: Links added.
[2017-10-04] MEDS: CALCITRIOL 0.25 MCG CAPSULE PO SCH (09:00)
[2017-10-04] MEDS: MULTIVIT, IRON, MIN NO. 8, FA 1 TAB GT SCH (09:00)
[2017-10-04] MEDS: METHADONE HCL 10 MG TABLET GT SCH (09:00)
[2017-10-04] MEDS: ESCITALOPRAM OXALATE (10 MG) 10 MG TABLET GT SCH (09:00)
[2017-10-04] MEDS: CALCIUM CARBONATE 500 MG TAB.CHEW GT SCH ×3 (09:00→17:38)
[2017-10-04] MEDS: ASCORBIC ACID 500 MG TABLET GT SCH ×2 (09:00→16:11)
[2017-10-04] MEDS: FAMOTIDINE (20 MG) 20 MG TABLET GT SCH ×2 (09:00→21:24)
[2017-10-04] MEDS: BACLOFEN (10 MG) 10 MG TABLET GT SCH ×4 (09:00→21:24)
[2017-10-04] MEDS: GABAPENTIN 300 MG CAPSULE GT SCH ×3 (09:00→16:11)
[2017-10-04] MEDS: ACIDOPHILUS/BULGARICUS 1 EACH TAB.CHEW GT SCH ×3 (09:00→16:11)
--- NOTE | 2017-10-04 09:30 | NUR ---
RT PT IS AWAKE AND ALERT. PT SPOKE WITH AND IS REFUSING TO DO MONTHLY TRACH CARE TODAY. CHARGE NURSE NOTIFIED AND AWARE. NO SIGNS OF SOB OR RESPIRATORY DISTRESS NOTED. TRACH IS CLEAR AND PATENT, WILL CONTINUE TO MONITOR.
[2017-10-04] MEDS: COLISTIMETHATE SODIUM 150 MG VIAL NEB SCH ×2 (09:58→20:58)
[2017-10-04] MEDS: Z GUARD REMEDY 4 OZ OINT TP SCH (10:00)
[2017-10-04] MEDS: HYDROCODONE/APAP 5/325MG 1 EACH TABLET PO SCH ×2 (10:00→21:00)
[2017-10-04] MEDS: MINERAL OIL/PETROL OINT 396 GM JAR TP SCH ×2 (10:00→21:25)
[2017-10-04] MEDS: CLOTRIMAZOLE 1% 15 GM TUBE TP SCH ×4 (10:00→16:11)
--- NOTE | 2017-10-04 11:30 | NUR ---
RT PT PLACED ON PMV FOR SWALLOW EVALUATION. PT WAS SX'D AND CUFF IS FULLY DEFLATED. PMV TAKEN OFF AFTER SWALLOW EVALUATION WAS DONE. NO RESPIRATORY DISTRESS NOTED.
--- NOTE | 2017-10-04 13:40 | NUR ---
vegetable ii farmworker met with odhptn-tm-rhr Vilma Donell to complete intake paperwork. vegetable ii farmworker also reviewed code status with the resident to which the resident indicated that he wants to be changed to full code. vegetable ii farmworker and [id number]-py-vgg explained to the resident what full code means (resuscitation-cpr, maximum treatment) and resident indicated that this is what he wants. Resident agreed to receive blood transfusions, antibiotics, IV fluids, nutrition/hydration tubes,transfer to acute hospital, oxygen, ventilator support, and dialysis if it is needed. Resident unable to state if he wants his life to be prolonged if he is in a coma or vegetative state and stated that he needs time to think about it. Resident wishing to currently be full code and 7th grade social studies teacher indicated to resident and jgnefk-gc-fpt that if anything were to happen between the time resident takes to decide, the staff will go by full code (cpr with maximum treatment which is what the resident chose to day). Sejafo-xr-ttx Vilma was present throughout conversation and acknowledged resident's wishes to be full code. vegetable ii farmworker indicated to resident that code status can always be changed. RAVI informed [id number] that advanced healthcare directive should be re-done to state the resident's wishes and she will followup with 7th grade social studies teacher as to when she will be available. RAVI will then inform Libby to schedule an appointment at the subacute facility. Charge nurse informed.
--- NOTE | 2017-10-04 15:30 | NUR ---
Received an order from Dr. Ugarte to change code status to full code per patient's request. Resident continue to receive ATB for sepsis no adverse reaction, midline in the R upper arm, patent, dressing clean and dry. He was seen by ST this morning with new order to start PO meals 3x/day. Resident notified as well as his sister in law. Patient very happy to hear that he will start eating by mouth starting tomorrow.
[2017-10-04] MEDS: VANCOMYCIN 0.75 GM in IV NS 0.9% 250 ML IV SCH ×3 (18:30)
[2017-10-04] MEDS: CRANBERRY EXT/C/L. SPOROGENES 405 MG/TAB TABLET GT SCH (21:24)
[2017-10-04] MEDS: POLYETHYLENE GLYCOL 3350 17 GM POWD.PACK GT SCH (21:25)
[2017-10-04] MEDS: ENOXAPARIN SODIUM 40 MG/0.4 ML DISP.SYRIN SQ SCH (21:25)
[2017-10-04] MEDS: PROSOURCE / PROSTAT (PYXIS) 30 ML UDC GT SCH (21:25)
[2017-10-04] MEDS: ATORVASTATIN 10 MG TABLET GT SCH (21:25)
[2017-10-04] MEDS: ZINC SULFATE 220 MG CAPSULE PO SCH (21:25)
[2017-10-04 22:00] VITALS: BP 127/73
[2017-10-04] MEDS: HYDROCODONE/APAP 5/325MG 1 EACH TABLET GT PRN (22:44)
[2017-10-05] MEDS: IPRATROPIUM NEB FS 0.5 MG/2.5 ML AMPUL.NEB NEB SCH ×4 (00:59→19:41)
[2017-10-05] MEDS: ALBUTEROL HALF STRENGTH 1.25 MG/3 ML VIAL.NEB NEB SCH ×4 (00:59→19:41)
[2017-10-05] MEDS: CEFEPIME 1 GM in IV D5W 50 ML IV SCH ×2 (02:00→14:00)
[2017-10-05 07:26] LABS: CALCIUM, SERUM 9.4 mg/dL (8.5-10.1); CREATININE 0.7 mg/dL (0.6-1.3); POTASSIUM 4.9 mmol/L (3.5-5.1)
[2017-10-05 07:58] VITALS: BP 124/67
[2017-10-05] MEDS: HYDROCODONE/APAP 5/325MG 1 EACH TABLET PO SCH ×2 (09:00→21:10)
[2017-10-05] MEDS: COLISTIMETHATE SODIUM 150 MG VIAL NEB SCH ×2 (09:46→21:00)
[2017-10-05] MEDS: ESCITALOPRAM OXALATE (10 MG) 10 MG TABLET GT SCH (09:53)
[2017-10-05] MEDS: BACLOFEN (10 MG) 10 MG TABLET GT SCH ×4 (09:53→21:08)
[2017-10-05] MEDS: ACIDOPHILUS/BULGARICUS 1 EACH TAB.CHEW GT SCH ×3 (09:53→17:27)
[2017-10-05] MEDS: FAMOTIDINE (20 MG) 20 MG TABLET GT SCH ×2 (09:54→21:08)
[2017-10-05] MEDS: ASCORBIC ACID 500 MG TABLET GT SCH ×2 (09:54→17:27)
[2017-10-05] MEDS: GABAPENTIN 300 MG CAPSULE GT SCH ×3 (09:54→17:27)
[2017-10-05] MEDS: CALCITRIOL 0.25 MCG CAPSULE PO SCH (09:54)
[2017-10-05] MEDS: MULTIVIT, IRON, MIN NO. 8, FA 1 TAB GT SCH (09:54)
[2017-10-05] MEDS: METHADONE HCL 10 MG TABLET GT SCH (09:54)
[2017-10-05] MEDS: CALCIUM CARBONATE 500 MG TAB.CHEW GT SCH ×3 (09:54→17:27)
[2017-10-05] MEDS: CLOTRIMAZOLE 1% 15 GM TUBE TP SCH ×4 (10:00→17:27)
[2017-10-05] MEDS: MINERAL OIL/PETROL OINT 396 GM JAR TP SCH ×2 (10:00→21:11)
[2017-10-05] MEDS: Z GUARD REMEDY 4 OZ OINT TP SCH (10:00)
[2017-10-05] MEDS: DAKINS QUARTER STRENGTH (0.125%) 480 ML BOTTLE TOP SCH (10:00)
[2017-10-05] MEDS: VANCOMYCIN 0.75 GM in IV NS 0.9% 250 ML IV SCH (12:00)
[2017-10-05] MEDS ORDERED: HYDROGEN PEROXIDE 480 ML BOTTLE TP PRN (18:30)
[2017-10-05 20:10] VITALS: BP 118/67
[2017-10-05] MEDS: CRANBERRY EXT/C/L. SPOROGENES 405 MG/TAB TABLET GT SCH (21:08)
[2017-10-05] MEDS: PROSOURCE / PROSTAT (PYXIS) 30 ML UDC GT SCH (21:08)
[2017-10-05] MEDS: ZINC SULFATE 220 MG CAPSULE PO SCH (21:10)
[2017-10-05] MEDS: POLYETHYLENE GLYCOL 3350 17 GM POWD.PACK GT SCH (21:11)
[2017-10-05] MEDS: ATORVASTATIN 10 MG TABLET GT SCH (21:11)
[2017-10-05] MEDS: HYDROGEN PEROXIDE 480 ML BOTTLE TP SCH (21:11)
[2017-10-05] MEDS: ENOXAPARIN SODIUM 40 MG/0.4 ML DISP.SYRIN SQ SCH (21:11)
[2017-10-06] MEDS: ALBUTEROL HALF STRENGTH 1.25 MG/3 ML VIAL.NEB NEB SCH ×4 (01:04→19:53)
[2017-10-06] MEDS: IPRATROPIUM NEB FS 0.5 MG/2.5 ML AMPUL.NEB NEB SCH ×4 (01:04→19:53)
[2017-10-06] MEDS: CEFEPIME 1 GM in IV D5W 50 ML IV SCH ×2 (02:00→14:47)
[2017-10-06] MEDS: VANCOMYCIN 0.75 GM in IV NS 0.9% 250 ML IV SCH (05:37)
[2017-10-06 07:30] VITALS: BP 118/75
[2017-10-06 08:03] LABS: CALCIUM, SERUM 8.9 mg/dL (8.5-10.1); CREATININE 0.7 mg/dL (0.6-1.3); POTASSIUM 4.4 mmol/L (3.5-5.1)
[2017-10-06] MEDS: COLISTIMETHATE SODIUM 150 MG VIAL NEB SCH ×2 (08:45→20:30)
[2017-10-06] MEDS: MULTIVIT, IRON, MIN NO. 8, FA 1 TAB GT SCH (09:00)
[2017-10-06] MEDS: ESCITALOPRAM OXALATE (10 MG) 10 MG TABLET GT SCH (09:00)
[2017-10-06] MEDS: METHADONE HCL 10 MG TABLET GT SCH (09:00)
[2017-10-06] MEDS: ASCORBIC ACID 500 MG TABLET GT SCH ×2 (09:00→17:00)
[2017-10-06] MEDS: CALCIUM CARBONATE 500 MG TAB.CHEW GT SCH ×3 (09:00→17:00)
[2017-10-06] MEDS: CALCITRIOL 0.25 MCG CAPSULE PO SCH (09:00)
[2017-10-06] MEDS: FAMOTIDINE (20 MG) 20 MG TABLET GT SCH ×2 (09:00→20:40)
[2017-10-06] MEDS: BACLOFEN (10 MG) 10 MG TABLET GT SCH ×4 (09:00→20:40)
[2017-10-06] MEDS: ACIDOPHILUS/BULGARICUS 1 EACH TAB.CHEW GT SCH ×3 (09:00→17:00)
[2017-10-06] MEDS: GABAPENTIN 300 MG CAPSULE GT SCH ×3 (09:00→17:00)
[2017-10-06] MEDS: MINERAL OIL/PETROL OINT 396 GM JAR TP SCH ×2 (10:00→20:41)
[2017-10-06] MEDS: HYDROCODONE/APAP 5/325MG 1 EACH TABLET PO SCH ×2 (10:00→20:40)
[2017-10-06] MEDS: CLOTRIMAZOLE 1% 15 GM TUBE TP SCH ×4 (10:00→17:00)
[2017-10-06] MEDS: DAKINS QUARTER STRENGTH (0.125%) 480 ML BOTTLE TOP SCH ×2 (10:00→20:41)
[2017-10-06] MEDS: Z GUARD REMEDY 4 OZ OINT TP SCH (10:00)
[2017-10-06] MEDS: HYDROGEN PEROXIDE 480 ML BOTTLE TP SCH ×2 (10:00→20:41)
[2017-10-06] MEDS: ACETAMINOPHEN 650 MG/20 ML UDC- FOR SA PATIENTS ONLY GT PRN (18:38)
[2017-10-06] MEDS: MAGNESIUM HYDROXIDE 30 ML UDC GT PRN (18:38)
--- NOTE | 2017-10-06 18:40 | NUR ---
Resident did not eat his dinner, he said that he does not feel good. When asked if he can explain it further whether he is in pain, he said he has a headache. V/S 127/86, 96, 100% on cool aerosol , T98.3. When asked if he wants something for pain. He said "yes". MORTICIAN HELPER gave PRN pain medication and patient felt relaxed afterwards. He went to sleep but easily arousable. Endorsed to incoming shift to monitor. Last dose of ATB Cefipime given, no adverse reaction.
[2017-10-06 20:39] VITALS: BP 116/74
[2017-10-06] MEDS: CRANBERRY EXT/C/L. SPOROGENES 405 MG/TAB TABLET GT SCH (20:40)
[2017-10-06] MEDS: ZINC SULFATE 220 MG CAPSULE PO SCH (20:40)
[2017-10-06] MEDS: ENOXAPARIN SODIUM 40 MG/0.4 ML DISP.SYRIN SQ SCH (20:40)
[2017-10-06] MEDS: PROSOURCE / PROSTAT (PYXIS) 30 ML UDC GT SCH (20:40)
[2017-10-06] MEDS: POLYETHYLENE GLYCOL 3350 17 GM POWD.PACK GT SCH (21:20)
[2017-10-06] MEDS: ATORVASTATIN 10 MG TABLET GT SCH (21:20)
[2017-10-07] MEDS: VANCOMYCIN 0.75 GM in IV NS 0.9% 250 ML IV SCH (00:41)
[2017-10-07] MEDS: ALBUTEROL HALF STRENGTH 1.25 MG/3 ML VIAL.NEB NEB SCH ×4 (01:17→19:28)
[2017-10-07] MEDS: IPRATROPIUM NEB FS 0.5 MG/2.5 ML AMPUL.NEB NEB SCH ×4 (01:17→19:28)
[2017-10-07] MEDS: HYDROCODONE/APAP 5/325MG 1 EACH TABLET GT PRN (04:56)
[2017-10-07 07:44] VITALS: BP 127/62
--- NOTE | 2017-10-07 08:20 | NUR ---
RT PT RECEIVED TRACHED ON COOL AEROSOL ON PMV, TOLERATING WELL. CUFF IS FULLY DEFLATED. PT IS AWAKE AND ALERT, PT SX'D. NO RESPIRATORY DISTRESS NOTED AT THIS TIME, WILL CONTINUE TO MONITOR. Addendum: 10/07/17 at 0939 by ESPERANZA HOOPER RT Amended: Links added.
[2017-10-07] MEDS: ACIDOPHILUS/BULGARICUS 1 EACH TAB.CHEW GT SCH ×3 (08:45→17:00)
[2017-10-07] MEDS: METHADONE HCL 10 MG TABLET GT SCH (08:45)
[2017-10-07] MEDS: ESCITALOPRAM OXALATE (10 MG) 10 MG TABLET GT SCH (08:45)
[2017-10-07] MEDS: BACLOFEN (10 MG) 10 MG TABLET GT SCH ×4 (08:45→21:00)
[2017-10-07] MEDS: CALCITRIOL 0.25 MCG CAPSULE PO SCH (08:47)
[2017-10-07] MEDS: ASCORBIC ACID 500 MG TABLET GT SCH ×2 (08:47→17:00)
[2017-10-07] MEDS: MULTIVIT, IRON, MIN NO. 8, FA 1 TAB GT SCH (08:47)
[2017-10-07] MEDS: FAMOTIDINE (20 MG) 20 MG TABLET GT SCH ×2 (08:47→21:00)
[2017-10-07] MEDS: CALCIUM CARBONATE 500 MG TAB.CHEW GT SCH ×3 (08:47→17:00)
[2017-10-07] MEDS: GABAPENTIN 300 MG CAPSULE GT SCH ×3 (08:47→17:00)
[2017-10-07] MEDS: POVIDONE-IODINE OINT 28.4 GM TUBE TP SCH (09:00)
[2017-10-07] MEDS: MINERAL OIL/PETROL OINT 396 GM JAR TP SCH ×2 (09:00→21:00)
--- NOTE | 2017-10-07 10:21 | NUR ---
RT PT IS AWAKE AND ALERT, MONTHLY TRACH CHANGE DONE WITH NEW SHILEY 8 CUFFED TRACH. TRACH CHANGE DONE WITH NO COMPLICATIONS. EQUAL BILATERAL BREATHE SOUNDS AND CHEST RISE. CUFF IS FULLY DEFLATED. PT PLACED BACK ON COOL AEROSOL AND PMV. NO REDNESS AT TRACH SITE BUT THERE IS SOME BLEEDING. NURSE OSCAR ASSISTED WITH TRACH CHANGE. NO RESPIRATORY DISTRESS NOTED AT THIS TIME, WILL CONTINUE TO MONITOR. Addendum: 10/07/17 at 1039 by ESPERANZA HOOPER RT Amended: Links added.
[2017-10-07] MEDS: HYDROCODONE/APAP 5/325MG 1 EACH TABLET PO SCH ×2 (12:50→21:00)
[2017-10-07] MEDS: HYDROGEN PEROXIDE 480 ML BOTTLE TP SCH ×2 (13:50→21:00)
[2017-10-07] MEDS: Z GUARD REMEDY 4 OZ OINT TP SCH (13:50)
[2017-10-07] MEDS: DAKINS QUARTER STRENGTH (0.125%) 480 ML BOTTLE TOP SCH ×2 (13:50→21:00)
[2017-10-07] MEDS: CLOTRIMAZOLE 1% 15 GM TUBE TP SCH ×4 (13:50→17:00)
[2017-10-07 15:12] LABS: CALCIUM, SERUM 8.4 mg/dL (8.5-10.1); CREATININE 0.7 mg/dL (0.6-1.3); POTASSIUM 4.3 mmol/L (3.5-5.1)
[2017-10-07 19:36] VITALS: BP 127/55
[2017-10-07] MEDS: CRANBERRY EXT/C/L. SPOROGENES 405 MG/TAB TABLET GT SCH (21:00)
[2017-10-07] MEDS: ENOXAPARIN SODIUM 40 MG/0.4 ML DISP.SYRIN SQ SCH (21:00)
[2017-10-07] MEDS: ZINC SULFATE 220 MG CAPSULE PO SCH (21:00)
[2017-10-07] MEDS: PROSOURCE / PROSTAT (PYXIS) 30 ML UDC GT SCH (21:00)
--- NOTE | 2017-10-07 21:56 | NUR ---
RT NOTE PATIENT RECEIVED TRACHED ON COOL AEROSOL ON PMV. B/S RHONCHI,SUCTIONED WITH A MODERATE AMOUNT OF THIN PALE YELLOWISH SECRETIONS.HHN TREATMENT GIVEN TOLERATED WELL. PATIENT STABLE AT THIS TIME . WILL CONTINUE TO MONITOR. Addendum: 10/07/17 at 2200 by ROM ARAIZA RT Amended: Links added.
[2017-10-07] MEDS: POLYETHYLENE GLYCOL 3350 17 GM POWD.PACK GT SCH (22:08)
[2017-10-07] MEDS: ATORVASTATIN 10 MG TABLET GT SCH (22:08)
[2017-10-08] MEDS: IPRATROPIUM NEB FS 0.5 MG/2.5 ML AMPUL.NEB NEB SCH ×4 (00:27→19:26)
[2017-10-08] MEDS: ALBUTEROL HALF STRENGTH 1.25 MG/3 ML VIAL.NEB NEB SCH ×4 (00:27→19:26)
[2017-10-08 07:37] VITALS: BP 130/77
[2017-10-08] MEDS: ACIDOPHILUS/BULGARICUS 1 EACH TAB.CHEW GT SCH ×3 (09:39→16:37)
[2017-10-08] MEDS: ESCITALOPRAM OXALATE (10 MG) 10 MG TABLET GT SCH (09:39)
[2017-10-08] MEDS: BACLOFEN (10 MG) 10 MG TABLET GT SCH ×4 (09:40→20:51)
[2017-10-08] MEDS: GABAPENTIN 300 MG CAPSULE GT SCH ×3 (09:40→16:38)
[2017-10-08] MEDS: FAMOTIDINE (20 MG) 20 MG TABLET GT SCH ×2 (09:41→20:51)
[2017-10-08] MEDS: MULTIVIT, IRON, MIN NO. 8, FA 1 TAB GT SCH (09:42)
[2017-10-08] MEDS: HYDROGEN PEROXIDE 480 ML BOTTLE TP SCH ×2 (09:43→20:52)
[2017-10-08] MEDS: DAKINS QUARTER STRENGTH (0.125%) 480 ML BOTTLE TOP SCH ×2 (09:43→20:52)
[2017-10-08] MEDS: CALCIUM CARBONATE 500 MG TAB.CHEW GT SCH ×3 (09:43→16:39)
[2017-10-08] MEDS: ASCORBIC ACID 500 MG TABLET GT SCH ×2 (09:43→16:39)
[2017-10-08] MEDS: POVIDONE-IODINE OINT 28.4 GM TUBE TP SCH (09:43)
[2017-10-08] MEDS: CALCITRIOL 0.25 MCG CAPSULE PO SCH (09:43)
[2017-10-08] MEDS: MINERAL OIL/PETROL OINT 396 GM JAR TP SCH ×2 (09:43→20:52)
[2017-10-08] MEDS: CLOTRIMAZOLE 1% 15 GM TUBE TP SCH ×4 (09:44→16:39)
[2017-10-08] MEDS: Z GUARD REMEDY 4 OZ OINT TP SCH (09:44)
[2017-10-08] MEDS: METHADONE HCL 10 MG TABLET GT SCH (09:47)
[2017-10-08] MEDS: HYDROCODONE/APAP 5/325MG 1 EACH TABLET PO SCH ×2 (09:47→20:51)
[2017-10-08 19:51] VITALS: BP 122/75
--- NOTE | 2017-10-08 20:00 | NUR ---
RN NOTES Received pt awake and alert with no distress noted. Will continue to monitor.
--- NOTE | 2017-10-08 20:29 | NUR ---
PT RCVD NENA'D ON COOL AEROSOL WITH CHARTED SETTINGS. SX DONE. PT TRACH PATENT AND SECURE. AMBU BAG AT BEDSIDE. WILL CONTINUE TO MONITOR. Addendum: 10/08/17 at 2028 by LUCIANA TRIMBLE RT Amended: Links added.
[2017-10-08] MEDS: CRANBERRY EXT/C/L. SPOROGENES 405 MG/TAB TABLET GT SCH (20:51)
[2017-10-08] MEDS: PROSOURCE / PROSTAT (PYXIS) 30 ML UDC GT SCH (20:51)
[2017-10-08] MEDS: ENOXAPARIN SODIUM 40 MG/0.4 ML DISP.SYRIN SQ SCH (20:52)
[2017-10-08] MEDS: ZINC SULFATE 220 MG CAPSULE PO SCH (20:52)
[2017-10-08] MEDS: ATORVASTATIN 10 MG TABLET GT SCH (22:04)
[2017-10-08] MEDS: POLYETHYLENE GLYCOL 3350 17 GM POWD.PACK GT SCH (22:04)
--- NOTE | 2017-10-08 22:05 | NUR ---
PLACED PT ON MECHANICAL VENT ON NOTED SETTINGS DUE TO RESPIRATORY DISTRESS Addendum: 10/08/17 at 2223 by LUCIANA BERNAL MECHANICAL VENT SETTINGS AC 20, 400, 40%, +5. CHARGE NURSE AMANDA ZHENG. Addendum: 10/09/17 at 0114 by LUCIANA TRIMBLE RT ABIODUN ZHENG.
--- NOTE | 2017-10-08 22:05 | NUR ---
RN NOTES Noted with difficulty breathing sating at 35% and unresponsive but arousable to vigorous touch. Suctioned small amount of thick secretions to maintain patent airway. No mucous plugs noted. Manually bagged pt to maintain spO2 above 92%. Dr. Walker called and notified and received new order to place pt back on vent AC 20 VT 400 FiO2 40% Peep +5, ABG in one hour, noted and carried out. RT on duty called and placed pt back on vent as ordered. Pt able to open eyes when called and smiled but went back to sleep. O2 sat now 99%. Will continue to monitor pt closely.
[2017-10-09] MEDS: IPRATROPIUM NEB FS 0.5 MG/2.5 ML AMPUL.NEB NEB SCH ×4 (00:47→19:31)
[2017-10-09] MEDS: ALBUTEROL HALF STRENGTH 1.25 MG/3 ML VIAL.NEB NEB SCH ×4 (00:48→19:31)
[2017-10-09 00:59] LABS: ABG BASE EXCESS 10.3 mmol/L; ABG OXYGEN SATURATION 98.6 % (92.0-98.5); ABG PCO2 53.5 mmHg (35.0-45.0); ABG PH 7.443 (7.350-7.450); ABG PO2 174.7 mmHg (75.0-100.0); MetHb 0.7 % (0.0-1.5); O2Hb 97.9 % (94.0-97.0); SITE, ABG Left Radial
[2017-10-09] MEDS: FAMOTIDINE (20 MG) 20 MG TABLET GT SCH ×2 (09:31→21:30)
[2017-10-09] MEDS: GABAPENTIN 300 MG CAPSULE GT SCH ×3 (09:31→17:21)
[2017-10-09] MEDS: ACIDOPHILUS/BULGARICUS 1 EACH TAB.CHEW GT SCH ×3 (09:31→17:18)
[2017-10-09] MEDS: ESCITALOPRAM OXALATE (10 MG) 10 MG TABLET GT SCH (09:31)
[2017-10-09] MEDS: BACLOFEN (10 MG) 10 MG TABLET GT SCH ×4 (09:31→21:30)
[2017-10-09] MEDS: CALCIUM CARBONATE 500 MG TAB.CHEW GT SCH ×3 (09:32→17:18)
[2017-10-09] MEDS: MULTIVIT, IRON, MIN NO. 8, FA 1 TAB GT SCH (09:32)
[2017-10-09] MEDS: ASCORBIC ACID 500 MG TABLET GT SCH ×2 (09:33→17:21)
[2017-10-09] MEDS: HYDROCODONE/APAP 5/325MG 1 EACH TABLET PO SCH ×2 (09:36→21:31)
[2017-10-09] MEDS: CALCITRIOL 0.25 MCG CAPSULE PO SCH (09:45)
[2017-10-09] MEDS: METHADONE HCL 10 MG TABLET GT SCH (09:45)
[2017-10-09] MEDS: HYDROGEN PEROXIDE 480 ML BOTTLE TP SCH ×2 (09:48→21:32)
[2017-10-09] MEDS: DAKINS QUARTER STRENGTH (0.125%) 480 ML BOTTLE TOP SCH ×2 (09:48→21:32)
[2017-10-09] MEDS: POVIDONE-IODINE OINT 28.4 GM TUBE TP SCH (09:48)
[2017-10-09] MEDS: CLOTRIMAZOLE 1% 15 GM TUBE TP SCH ×4 (09:48→17:18)
[2017-10-09] MEDS: Z GUARD REMEDY 4 OZ OINT TP SCH (09:48)
[2017-10-09] MEDS: MINERAL OIL/PETROL OINT 396 GM JAR TP SCH ×2 (09:48→21:32)
[2017-10-09 10:05] VITALS: BP 117/66
--- NOTE | 2017-10-09 11:48 | NUR ---
RT NOTE RECEIVED PT MECHANICALLY VENTILATED VIA SHILEY 8 CUFFED TRACHEOSTOMY TUBE. CUFF INFLATED VIA BRANNER MACHINE TENDER. TRACH MIDLINE AND SECURE. VENTILATOR SETTINGS PRESCRIBED. ALARMS SET PER PROTOCOL AND AUDIBLE. VENT PLUGGED IN TO RED OUTLET. AMBU BAG AT BED SIDE. NO DISTRESS NOTED AT MOMENT. Addendum: 10/09/17 at 1148 by KAJAL ARAIZA RT Amended: Links added.
[2017-10-09 20:21] VITALS: BP 138/71
[2017-10-09] MEDS: PROSOURCE / PROSTAT (PYXIS) 30 ML UDC GT SCH (21:30)
[2017-10-09] MEDS: CRANBERRY EXT/C/L. SPOROGENES 405 MG/TAB TABLET GT SCH (21:30)
[2017-10-09] MEDS: ZINC SULFATE 220 MG CAPSULE PO SCH (21:31)
[2017-10-09] MEDS: ENOXAPARIN SODIUM 40 MG/0.4 ML DISP.SYRIN SQ SCH (21:32)
[2017-10-09] MEDS: ATORVASTATIN 10 MG TABLET GT SCH (21:32)
[2017-10-09] MEDS: POLYETHYLENE GLYCOL 3350 17 GM POWD.PACK GT SCH (21:32)
[2017-10-10] MEDS: ALBUTEROL HALF STRENGTH 1.25 MG/3 ML VIAL.NEB NEB SCH ×4 (01:22→19:18)
[2017-10-10] MEDS: IPRATROPIUM NEB FS 0.5 MG/2.5 ML AMPUL.NEB NEB SCH ×4 (01:22→19:18)
[2017-10-10] MEDS: METHOCARBAMOL (750MG) 750 MG TABLET GT PRN (04:32)
[2017-10-10 07:13] VITALS: BP 126/76
[2017-10-10] MEDS: ESCITALOPRAM OXALATE (10 MG) 10 MG TABLET GT SCH (08:45)
[2017-10-10] MEDS: ACIDOPHILUS/BULGARICUS 1 EACH TAB.CHEW GT SCH ×3 (08:45→16:55)
[2017-10-10] MEDS: BACLOFEN (10 MG) 10 MG TABLET GT SCH ×4 (08:45→21:24)
[2017-10-10] MEDS: METHADONE HCL 10 MG TABLET GT SCH (08:46)
[2017-10-10] MEDS: FAMOTIDINE (20 MG) 20 MG TABLET GT SCH ×2 (08:47→21:24)
[2017-10-10] MEDS: GABAPENTIN 300 MG CAPSULE GT SCH ×3 (08:47→16:57)
[2017-10-10] MEDS: MULTIVIT, IRON, MIN NO. 8, FA 1 TAB GT SCH (08:48)
[2017-10-10] MEDS: CALCIUM CARBONATE 500 MG TAB.CHEW GT SCH ×3 (08:48→16:57)
[2017-10-10] MEDS: CALCITRIOL 0.25 MCG CAPSULE PO SCH (08:48)
[2017-10-10] MEDS: ASCORBIC ACID 500 MG TABLET GT SCH ×2 (08:48→16:57)
--- NOTE | 2017-10-10 12:15 | NUR ---
Informed resident's msstcw-zw-paj about upcoming IDT meeting October 13, 2017 from 12:30-1:30PM. She stated that she will not be able to attend.
[2017-10-10] MEDS: HYDROCODONE/APAP 5/325MG 1 EACH TABLET PO SCH ×2 (14:00→21:26)
[2017-10-10] MEDS: CLOTRIMAZOLE 1% 15 GM TUBE TP SCH ×4 (14:30→16:57)
[2017-10-10] MEDS: MINERAL OIL/PETROL OINT 396 GM JAR TP SCH ×2 (14:30→21:25)
[2017-10-10] MEDS: HYDROGEN PEROXIDE 480 ML BOTTLE TP SCH ×2 (14:30→21:25)
[2017-10-10] MEDS: Z GUARD REMEDY 4 OZ OINT TP SCH (14:30)
[2017-10-10] MEDS: POVIDONE-IODINE OINT 28.4 GM TUBE TP SCH (14:30)
[2017-10-10] MEDS: DAKINS QUARTER STRENGTH (0.125%) 480 ML BOTTLE TOP SCH ×2 (14:30→21:27)
--- NOTE | 2017-10-10 15:07 | NUR ---
RT RECD PT TRACHED INTACT AND SECURED ON MECH VENT TERRANCE SETTINGS ALARMS ON AND AUDIBLE TX GIVEN TERRANCE WELL NO ADVERSE RECTION NOTED ATT NO RESP DISTRESS NOTED ATT.
--- NOTE | 2017-10-10 19:18 | NUR ---
RT NOTE: RECEIVED TRACH PT ON [facility] VENT VIA SHILEY 8 CUFFED TRACH TUBE. METAL BUILDINGS ASSEMBLER DONE. TRACH IS PATENT AND SECURED. ALARMS SET AND AUDIBLE. VENT PLUGGED IN TO RED OUTLET. AMBU BAG AT BED SIDE. Q6 BREATHING TX GIVEN AT THIS TIME. NO RESP DISTRESS NOTED AT THIS TIME. WILL CONT TO MONITOR PT. Addendum: 10/10/17 at 2023 by SOBIA VILLA RT Amended: Links added.
[2017-10-10] MEDS: PROSOURCE / PROSTAT (PYXIS) 30 ML UDC GT SCH (21:24)
[2017-10-10] MEDS: ZINC SULFATE 220 MG CAPSULE PO SCH (21:24)
[2017-10-10] MEDS: CRANBERRY EXT/C/L. SPOROGENES 405 MG/TAB TABLET GT SCH (21:24)
[2017-10-10] MEDS: POLYETHYLENE GLYCOL 3350 17 GM POWD.PACK GT SCH (21:25)
[2017-10-10] MEDS: ATORVASTATIN 10 MG TABLET GT SCH (21:25)
[2017-10-10] MEDS: ENOXAPARIN SODIUM 40 MG/0.4 ML DISP.SYRIN SQ SCH (21:27)
[2017-10-11] MEDS: IPRATROPIUM NEB FS 0.5 MG/2.5 ML AMPUL.NEB NEB SCH ×4 (00:58→19:51)
[2017-10-11] MEDS: ALBUTEROL HALF STRENGTH 1.25 MG/3 ML VIAL.NEB NEB SCH ×4 (00:58→19:51)
--- NOTE | 2017-10-11 01:00 | NUR ---
FLOAT BUILDER Notes: Pt's yarbrough was out. Inserted Fr 16x10 yarbrough catheter. Pt tolerated well, F/C in place, draining clear yellow urine. Will continue to monitor.
--- NOTE | 2017-10-11 06:00 | NUR ---
GAMING SURVEILLANCE OBSERVER Notes: Pt's yarbrough still in place, draining clear yellow urine. Pt with no c/o pain. Will endorse to oncoming nurse to continue to monitor.
[2017-10-11 06:37] VITALS: BP 128/79
[2017-10-11 07:50] VITALS: BP 120/69
[2017-10-11] MEDS: BACLOFEN (10 MG) 10 MG TABLET GT SCH ×4 (08:49→21:42)
[2017-10-11] MEDS: METHADONE HCL 10 MG TABLET GT SCH (08:49)
[2017-10-11] MEDS: ACIDOPHILUS/BULGARICUS 1 EACH TAB.CHEW GT SCH ×3 (08:49→17:26)
[2017-10-11] MEDS: ESCITALOPRAM OXALATE (10 MG) 10 MG TABLET GT SCH (08:49)
[2017-10-11] MEDS: FAMOTIDINE (20 MG) 20 MG TABLET GT SCH ×2 (08:52→21:42)
[2017-10-11] MEDS: ASCORBIC ACID 500 MG TABLET GT SCH ×2 (08:52→17:26)
[2017-10-11] MEDS: CALCIUM CARBONATE 500 MG TAB.CHEW GT SCH ×3 (08:52→17:26)
[2017-10-11] MEDS: GABAPENTIN 300 MG CAPSULE GT SCH ×3 (08:52→17:26)
[2017-10-11] MEDS: CALCITRIOL 0.25 MCG CAPSULE PO SCH (08:52)
[2017-10-11] MEDS: MULTIVIT, IRON, MIN NO. 8, FA 1 TAB GT SCH (08:52)
[2017-10-11] MEDS: POVIDONE-IODINE OINT 28.4 GM TUBE TP SCH (09:00)
--- NOTE | 2017-10-11 12:00 | NUR ---
PT RCVD TRACH'D ON MECHANICAL VENT WITH CHARTED SETTINGS. PT SX Q2 + PRN. PT TRACH PATENT AND SECURE. AMBU BAG AT BEDSIDE. VENT PLUGGED INTO RED OUTLET. ALARMS ARE SET AND AUDIBLE THROUGH OUT SUBACUTE UNIT. SARAH BETH AND ANNETTE BARRETT AT [facility]. WILL CONTINUE TO MONITOR. Addendum: 10/11/17 at 1207 by CHIDI DODSON RT Amended: Links added.
[2017-10-11] MEDS: HYDROCODONE/APAP 5/325MG 1 EACH TABLET PO SCH ×2 (12:50→21:43)
[2017-10-11] MEDS: HYDROGEN PEROXIDE 480 ML BOTTLE TP SCH ×2 (13:50→21:43)
[2017-10-11] MEDS: MINERAL OIL/PETROL OINT 396 GM JAR TP SCH ×2 (13:50→21:43)
[2017-10-11] MEDS: CLOTRIMAZOLE 1% 15 GM TUBE TP SCH ×4 (13:50→17:27)
[2017-10-11] MEDS: DAKINS QUARTER STRENGTH (0.125%) 480 ML BOTTLE TOP SCH ×2 (13:50→21:43)
[2017-10-11] MEDS: Z GUARD REMEDY 4 OZ OINT TP SCH (13:50)
--- NOTE | 2017-10-11 19:52 | NUR ---
PT REC'D TRACHED ON [facility] VENT SETTINGS CHARTED. NO RESP DISTRESS OR SOB NOTED. TX GIVEN ORDERED AND SX'D NEEDED. TRACH MIDLINE AND PATENT. PT STABLE AT THIS TIME. ALARMS ARE SET AND AUDIBLE. VENT PLUGGED INTO RED OUTLET. AMBU BAG BEDSIDE. WILL CONTINUE TO MONITOR Addendum: 10/12/17 at 0251 by CAITLIN SOTO RT Amended: Links added.
[2017-10-11 20:18] VITALS: BP 118/72
[2017-10-11] MEDS: CRANBERRY EXT/C/L. SPOROGENES 405 MG/TAB TABLET GT SCH (21:42)
[2017-10-11] MEDS: PROSOURCE / PROSTAT (PYXIS) 30 ML UDC GT SCH (21:42)
[2017-10-11] MEDS: ZINC SULFATE 220 MG CAPSULE PO SCH (21:43)
[2017-10-11] MEDS: ATORVASTATIN 10 MG TABLET GT SCH (21:43)
[2017-10-11] MEDS: ENOXAPARIN SODIUM 40 MG/0.4 ML DISP.SYRIN SQ SCH (21:43)
[2017-10-11] MEDS: POLYETHYLENE GLYCOL 3350 17 GM POWD.PACK GT SCH (21:43)
[2017-10-12] MEDS: ALBUTEROL HALF STRENGTH 1.25 MG/3 ML VIAL.NEB NEB SCH ×4 (01:31→19:44)
[2017-10-12] MEDS: IPRATROPIUM NEB FS 0.5 MG/2.5 ML AMPUL.NEB NEB SCH ×4 (01:31→19:44)
[2017-10-12] MEDS: METHOCARBAMOL (750MG) 750 MG TABLET GT PRN (02:30)
[2017-10-12 07:30] VITALS: BP 119/81
[2017-10-12] MEDS: Z GUARD REMEDY 4 OZ OINT TP SCH (09:00)
[2017-10-12] MEDS: POVIDONE-IODINE OINT 28.4 GM TUBE TP SCH (09:00)
[2017-10-12] MEDS: BACI/NEOM/POLY B OINT PKT 1 UDPKT PACKET TP SCH ×2 (09:00→20:54)
[2017-10-12] MEDS: GABAPENTIN 300 MG CAPSULE GT SCH ×3 (09:20→17:53)
[2017-10-12] MEDS: MULTIVIT, IRON, MIN NO. 8, FA 1 TAB GT SCH (09:20)
[2017-10-12] MEDS: BACLOFEN (10 MG) 10 MG TABLET GT SCH ×4 (09:20→20:53)
[2017-10-12] MEDS: ACIDOPHILUS/BULGARICUS 1 EACH TAB.CHEW GT SCH ×3 (09:20→17:53)
[2017-10-12] MEDS: METHADONE HCL 10 MG TABLET GT SCH (09:20)
[2017-10-12] MEDS: ESCITALOPRAM OXALATE (10 MG) 10 MG TABLET GT SCH (09:20)
[2017-10-12] MEDS: ASCORBIC ACID 500 MG TABLET GT SCH ×2 (09:20→17:53)
[2017-10-12] MEDS: FAMOTIDINE (20 MG) 20 MG TABLET GT SCH ×2 (09:20→20:53)
[2017-10-12] MEDS: CALCIUM CARBONATE 500 MG TAB.CHEW GT SCH ×3 (09:20→17:53)
[2017-10-12] MEDS: CALCITRIOL 0.25 MCG CAPSULE PO SCH (09:21)
[2017-10-12] MEDS: HYDROCODONE/APAP 5/325MG 1 EACH TABLET PO SCH ×2 (09:21→20:53)
[2017-10-12] MEDS: MINERAL OIL/PETROL OINT 396 GM JAR TP SCH ×2 (09:58→20:54)
[2017-10-12] MEDS: DAKINS QUARTER STRENGTH (0.125%) 480 ML BOTTLE TOP SCH ×2 (09:58→20:54)
[2017-10-12] MEDS: HYDROGEN PEROXIDE 480 ML BOTTLE TP SCH ×2 (09:58→20:54)
[2017-10-12] MEDS: CLOTRIMAZOLE 1% 15 GM TUBE TP SCH ×4 (09:59→17:54)
--- NOTE | 2017-10-12 14:22 | NUR ---
RT NOTE: PATIENT RECEIVED TRACHED ON MECHANICAL VENT. ALARMS VERIFIED AND AUDIBLE. SUCTIONED AND LAVAGED MODERATE-LARGE AMOUNT THICK FOURNIER SECRETIONS. AMBU BAG AT [facility]. VENT PLUGGED INTO RED OUTLET. NEW TRACH AND AMBU BAG AT [facility].
--- NOTE | 2017-10-12 14:26 | NUR ---
SW attempted to go see the resident however, resident was sleeping and was not able to wake up. SW left the resident's cellular phone charging and turned it on for him. SW will attempt at a later time to visit with the resident. RAVI informed by charge nurse that the resident was placed back on the ventilator on 10/08/2017. Resident's dental appointment still pending.
--- NOTE | 2017-10-12 14:37 | NUR ---
garment worker reminded resident's ncndso-fo-qka Vilma that advanced directive needs to be re-done and asked her to notify the SW prior to her next visit to see if ombudsman can come and assist resident in completing new advanced directive. SW will follow up.
[2017-10-12] MEDS: HYDROCODONE/APAP 5/325MG 1 EACH TABLET GT PRN (17:53)
[2017-10-12 20:19] VITALS: BP 138/79
[2017-10-12] MEDS: CRANBERRY EXT/C/L. SPOROGENES 405 MG/TAB TABLET GT SCH (20:53)
[2017-10-12] MEDS: PROSOURCE / PROSTAT (PYXIS) 30 ML UDC GT SCH (20:53)
[2017-10-12] MEDS: ZINC SULFATE 220 MG CAPSULE PO SCH (20:53)
[2017-10-12] MEDS: ENOXAPARIN SODIUM 40 MG/0.4 ML DISP.SYRIN SQ SCH (20:54)
[2017-10-12] MEDS: ATORVASTATIN 10 MG TABLET GT SCH (21:29)
[2017-10-12] MEDS: POLYETHYLENE GLYCOL 3350 17 GM POWD.PACK GT SCH (21:29)
[2017-10-12] MEDS: MAGNESIUM HYDROXIDE 30 ML UDC GT PRN (23:53)
[2017-10-13] MEDS: ALBUTEROL HALF STRENGTH 1.25 MG/3 ML VIAL.NEB NEB SCH ×4 (00:31→19:43)
[2017-10-13] MEDS: IPRATROPIUM NEB FS 0.5 MG/2.5 ML AMPUL.NEB NEB SCH ×4 (00:31→19:43)
--- NOTE | 2017-10-13 04:25 | NUR ---
RT NOTE: RECEIVED TRACH PT ON [facility] VENT PROPERLY SECURED TRACH TUBE. TIE FASTENER DONE. ALARMS SET AND AUDIBLE. VENT PLUGGED IN TO RED OUTLET. AMBU BAG AT BED SIDE. Q6 BREATHING TX GIVEN AT THIS TIME. NO RESP DISTRESS NOTED AT THIS TIME. WILL CONT TO MONITOR PT. Addendum: 10/13/17 at 0426 by MARINA COURTNEY RT Amended: Links added.
[2017-10-13 07:39] VITALS: BP 156/89
[2017-10-13] MEDS: MULTIVIT, IRON, MIN NO. 8, FA 1 TAB GT SCH (09:00)
[2017-10-13] MEDS: CALCITRIOL 0.25 MCG CAPSULE PO SCH (09:00)
[2017-10-13] MEDS: CALCIUM CARBONATE 500 MG TAB.CHEW GT SCH ×3 (09:00→17:00)
[2017-10-13] MEDS: ACIDOPHILUS/BULGARICUS 1 EACH TAB.CHEW GT SCH ×3 (09:00→17:00)
[2017-10-13] MEDS: ASCORBIC ACID 500 MG TABLET GT SCH ×2 (09:00→17:00)
[2017-10-13] MEDS: FAMOTIDINE (20 MG) 20 MG TABLET GT SCH ×2 (09:00→20:54)
[2017-10-13] MEDS: BACLOFEN (10 MG) 10 MG TABLET GT SCH ×4 (09:00→20:52)
[2017-10-13] MEDS: ESCITALOPRAM OXALATE (10 MG) 10 MG TABLET GT SCH (09:00)
[2017-10-13] MEDS: GABAPENTIN 300 MG CAPSULE GT SCH ×3 (09:00→17:00)
[2017-10-13] MEDS: HYDROCODONE/APAP 5/325MG 1 EACH TABLET PO SCH ×2 (10:40→20:57)
[2017-10-13] MEDS: METHADONE HCL 10 MG TABLET GT SCH (10:40)
[2017-10-13] MEDS: DAKINS QUARTER STRENGTH (0.125%) 480 ML BOTTLE TOP SCH ×2 (11:10→20:54)
[2017-10-13] MEDS: MINERAL OIL/PETROL OINT 396 GM JAR TP SCH ×2 (11:10→20:54)
[2017-10-13] MEDS: BACI/NEOM/POLY B OINT PKT 1 UDPKT PACKET TP SCH ×2 (11:10→20:54)
[2017-10-13] MEDS: POVIDONE-IODINE OINT 28.4 GM TUBE TP SCH (11:10)
[2017-10-13] MEDS: Z GUARD REMEDY 4 OZ OINT TP SCH (11:10)
[2017-10-13] MEDS: CLOTRIMAZOLE 1% 15 GM TUBE TP SCH ×4 (11:10→17:00)
[2017-10-13] MEDS: HYDROGEN PEROXIDE 480 ML BOTTLE TP SCH ×2 (11:10→20:54)
--- NOTE | 2017-10-13 15:02 | NUR ---
INTERDISCIPLINARY PLAN OF CARE CONFERENCE was held today. Resident's [id number] was unable to attend. Dr. Ugarte and the interdisciplinary team discussed the current plan of care in detail. Current orders as well as treatments and medications were reviewed. Resident is back on the ventilator and per Dr. Ugarte, there are no current plans to start weaning the resident.Resident is now full code status. No new orders were given.
--- NOTE | 2017-10-13 16:48 | NUR ---
RT NOTE PT IN STABLE CONDITION. PT REMAINS MECHANICALLY VENTILATED VIA TRACHEOSTOMY TUBE. CUFF INFLATED VIA FLUX MIXER. TRACH TUBE MIDLINE AND SECURE. VENTILATOR SETTINGS PRESCRIBED. ALARMS SET PER PROTOCOL AND AUDIBLE. VENT PLUGGED IN TO RED OUTLET. AMBU BAG AT BED SIDE. NO DISTRESS NOTED AT MOMENT.
--- NOTE | 2017-10-13 16:48 | NUR ---
RT NOTE PT IN STABLE CONDITION. PT REMAINS MECHANICALLY VENTILATED VIA TRACHEOSTOMY TUBE. CUFF INFLATED VIA PRICING/SIGNAGE TEAM MEMBER. TRACH TUBE MIDLINE AND SECURE. VENTILATOR SETTINGS PRESCRIBED. ALARMS SET PER PROTOCOL AND AUDIBLE. VENT PLUGGED IN TO RED OUTLET. AMBU BAG AT BED SIDE. NO DISTRESS NOTED AT MOMENT. Addendum: 10/13/17 at 1648 by KAJAL ARAIZA RT Amended: Links added.
[2017-10-13 20:00] VITALS: BP 121/74
[2017-10-13] MEDS: CRANBERRY EXT/C/L. SPOROGENES 405 MG/TAB TABLET GT SCH (20:52)
[2017-10-13] MEDS: PROSOURCE / PROSTAT (PYXIS) 30 ML UDC GT SCH (20:53)
[2017-10-13] MEDS: ZINC SULFATE 220 MG CAPSULE PO SCH (20:55)
[2017-10-13] MEDS: ENOXAPARIN SODIUM 40 MG/0.4 ML DISP.SYRIN SQ SCH (20:58)
[2017-10-13] MEDS: ATORVASTATIN 10 MG TABLET GT SCH (21:00)
[2017-10-13] MEDS: POLYETHYLENE GLYCOL 3350 17 GM POWD.PACK GT SCH (21:00)
[2017-10-14] MEDS: ALBUTEROL HALF STRENGTH 1.25 MG/3 ML VIAL.NEB NEB SCH ×4 (01:07→20:03)
[2017-10-14] MEDS: IPRATROPIUM NEB FS 0.5 MG/2.5 ML AMPUL.NEB NEB SCH ×4 (01:07→20:03)
--- NOTE | 2017-10-14 04:24 | NUR ---
RT PT RECEIVED ON THE VENT WITH NOTED SETTINGS. VENT ALARMS ARE SET AND AUDIBLE WITH AMBU BAG AT HOB. SOFTBALL UMPIRE CUFF PRESSURE NOTED. VENT IS PLUGGED INTO RED OUTLET. NO SOB OR DISTRESS NOTED. Addendum: 10/14/17 at 0424 by NEGRA NUNO RT Amended: Links added.
[2017-10-14] MEDS: HYDROCODONE/APAP 5/325MG 1 EACH TABLET GT PRN (06:47)
--- NOTE | 2017-10-14 06:48 | NUR ---
RN NOTES PT C/O MODERATE GENERALIZED PAIN. ADMINISTERED PRN NORCO [phone] ORDERED.
[2017-10-14] MEDS: HYDROCODONE/APAP 5/325MG 1 EACH TABLET PO SCH ×2 (09:00→20:54)
[2017-10-14] MEDS: POVIDONE-IODINE OINT 28.4 GM TUBE TP SCH (09:00)
[2017-10-14] MEDS: CALCITRIOL 0.25 MCG CAPSULE PO SCH (09:20)
[2017-10-14] MEDS: GABAPENTIN 300 MG CAPSULE GT SCH ×3 (09:20→17:34)
[2017-10-14] MEDS: MULTIVIT, IRON, MIN NO. 8, FA 1 TAB GT SCH (09:20)
[2017-10-14] MEDS: METHADONE HCL 10 MG TABLET GT SCH (09:20)
[2017-10-14] MEDS: FAMOTIDINE (20 MG) 20 MG TABLET GT SCH ×2 (09:20→20:53)
[2017-10-14] MEDS: ESCITALOPRAM OXALATE (10 MG) 10 MG TABLET GT SCH (09:20)
[2017-10-14] MEDS: BACLOFEN (10 MG) 10 MG TABLET GT SCH ×4 (09:20→20:53)
[2017-10-14] MEDS: ASCORBIC ACID 500 MG TABLET GT SCH ×2 (09:20→17:34)
[2017-10-14] MEDS: CALCIUM CARBONATE 500 MG TAB.CHEW GT SCH ×3 (09:20→17:34)
[2017-10-14] MEDS: ACIDOPHILUS/BULGARICUS 1 EACH TAB.CHEW GT SCH ×3 (09:20→17:34)
[2017-10-14] MEDS: MINERAL OIL/PETROL OINT 396 GM JAR TP SCH ×2 (10:00→20:54)
[2017-10-14] MEDS: HYDROGEN PEROXIDE 480 ML BOTTLE TP SCH ×2 (10:00→20:54)
[2017-10-14] MEDS: DAKINS QUARTER STRENGTH (0.125%) 480 ML BOTTLE TOP SCH ×2 (10:00→20:54)
[2017-10-14] MEDS: CLOTRIMAZOLE 1% 15 GM TUBE TP SCH ×4 (10:00→17:34)
[2017-10-14] MEDS: BACI/NEOM/POLY B OINT PKT 1 UDPKT PACKET TP SCH ×2 (10:00→20:54)
[2017-10-14] MEDS: Z GUARD REMEDY 4 OZ OINT TP SCH (10:00)
[2017-10-14 10:01] VITALS: BP 115/71
[2017-10-14 19:51] VITALS: BP 130/73
[2017-10-14] MEDS: CRANBERRY EXT/C/L. SPOROGENES 405 MG/TAB TABLET GT SCH (20:53)
[2017-10-14] MEDS: PROSOURCE / PROSTAT (PYXIS) 30 ML UDC GT SCH (20:53)
[2017-10-14] MEDS: ENOXAPARIN SODIUM 40 MG/0.4 ML DISP.SYRIN SQ SCH (20:54)
[2017-10-14] MEDS: ZINC SULFATE 220 MG CAPSULE PO SCH (20:54)
[2017-10-14] MEDS: ATORVASTATIN 10 MG TABLET GT SCH (21:12)
[2017-10-14] MEDS: POLYETHYLENE GLYCOL 3350 17 GM POWD.PACK GT SCH (21:12)
[2017-10-14] MEDS: MAGNESIUM HYDROXIDE 30 ML UDC GT PRN (21:13)
[2017-10-15] MEDS: IPRATROPIUM NEB FS 0.5 MG/2.5 ML AMPUL.NEB NEB SCH ×4 (01:23→19:37)
[2017-10-15] MEDS: ALBUTEROL HALF STRENGTH 1.25 MG/3 ML VIAL.NEB NEB SCH ×4 (01:23→19:37)
[2017-10-15 08:05] VITALS: BP 122/75
[2017-10-15] MEDS: ASCORBIC ACID 500 MG TABLET GT SCH ×2 (09:00→17:00)
[2017-10-15] MEDS: MINERAL OIL/PETROL OINT 396 GM JAR TP SCH ×2 (09:00→20:09)
[2017-10-15] MEDS: METHADONE HCL 10 MG TABLET GT SCH (09:00)
[2017-10-15] MEDS: ACIDOPHILUS/BULGARICUS 1 EACH TAB.CHEW GT SCH ×3 (09:00→17:00)
[2017-10-15] MEDS: DAKINS QUARTER STRENGTH (0.125%) 480 ML BOTTLE TOP SCH ×2 (09:00→21:00)
[2017-10-15] MEDS: GABAPENTIN 300 MG CAPSULE GT SCH ×3 (09:00→17:00)
[2017-10-15] MEDS: HYDROGEN PEROXIDE 480 ML BOTTLE TP SCH ×2 (09:00→20:09)
[2017-10-15] MEDS: BACLOFEN (10 MG) 10 MG TABLET GT SCH ×4 (09:00→20:08)
[2017-10-15] MEDS: CALCIUM CARBONATE 500 MG TAB.CHEW GT SCH ×3 (09:00→17:00)
[2017-10-15] MEDS: ESCITALOPRAM OXALATE (10 MG) 10 MG TABLET GT SCH (09:00)
[2017-10-15] MEDS: FAMOTIDINE (20 MG) 20 MG TABLET GT SCH ×2 (09:00→20:08)
[2017-10-15] MEDS: HYDROCODONE/APAP 5/325MG 1 EACH TABLET PO SCH ×2 (09:00→20:09)
[2017-10-15] MEDS: MULTIVIT, IRON, MIN NO. 8, FA 1 TAB GT SCH (09:00)
[2017-10-15] MEDS: CALCITRIOL 0.25 MCG CAPSULE PO SCH (09:00)
[2017-10-15] MEDS: POVIDONE-IODINE OINT 28.4 GM TUBE TP SCH (09:00)
[2017-10-15] MEDS: BACI/NEOM/POLY B OINT PKT 1 UDPKT PACKET TP SCH ×2 (09:00→20:10)
[2017-10-15] MEDS: CLOTRIMAZOLE 1% 15 GM TUBE TP SCH ×4 (09:00→17:00)
[2017-10-15] MEDS: Z GUARD REMEDY 4 OZ OINT TP SCH (09:00)
--- NOTE | 2017-10-15 11:35 | NUR ---
RT NOTE PT RCVD TRACH'D ON MECHANICAL VENT WITH CHARTED SETTINGS. PT SX Q2 + PRN. PT TRACH PATENT AND SECURE. AMBU BAG AT BEDSIDE. VENT PLUGGED INTO RED OUTLET. ALARMS ARE SET AND AUDIBLE. AMBUBAG AND SPARE TRACH AT [facility]. WILL CONTINUE TO MONITOR.
[2017-10-15 19:34] VITALS: BP 125/72
[2017-10-15] MEDS: CRANBERRY EXT/C/L. SPOROGENES 405 MG/TAB TABLET GT SCH (20:08)
[2017-10-15] MEDS: PROSOURCE / PROSTAT (PYXIS) 30 ML UDC GT SCH (20:08)
[2017-10-15] MEDS: ZINC SULFATE 220 MG CAPSULE PO SCH (20:09)
[2017-10-15] MEDS: ENOXAPARIN SODIUM 40 MG/0.4 ML DISP.SYRIN SQ SCH (20:11)
[2017-10-15] MEDS: ATORVASTATIN 10 MG TABLET GT SCH (22:03)
[2017-10-15] MEDS: POLYETHYLENE GLYCOL 3350 17 GM POWD.PACK GT SCH (22:03)
[2017-10-16] MEDS: IPRATROPIUM NEB FS 0.5 MG/2.5 ML AMPUL.NEB NEB SCH ×4 (00:48→19:15)
[2017-10-16] MEDS: ALBUTEROL HALF STRENGTH 1.25 MG/3 ML VIAL.NEB NEB SCH ×4 (00:48→19:15)
[2017-10-16 07:48] VITALS: BP 125/74
[2017-10-16] MEDS: POVIDONE-IODINE OINT 28.4 GM TUBE TP SCH (09:00)
[2017-10-16] MEDS: ACIDOPHILUS/BULGARICUS 1 EACH TAB.CHEW GT SCH ×3 (09:57→17:00)
[2017-10-16] MEDS: ESCITALOPRAM OXALATE (10 MG) 10 MG TABLET GT SCH (09:57)
[2017-10-16] MEDS: BACLOFEN (10 MG) 10 MG TABLET GT SCH ×4 (09:57→21:29)
[2017-10-16] MEDS: CALCIUM CARBONATE 500 MG TAB.CHEW GT SCH ×3 (09:58→17:00)
[2017-10-16] MEDS: FAMOTIDINE (20 MG) 20 MG TABLET GT SCH ×2 (09:58→21:29)
[2017-10-16] MEDS: METHADONE HCL 10 MG TABLET GT SCH (09:58)
[2017-10-16] MEDS: CALCITRIOL 0.25 MCG CAPSULE PO SCH (09:58)
[2017-10-16] MEDS: MULTIVIT, IRON, MIN NO. 8, FA 1 TAB GT SCH (09:58)
[2017-10-16] MEDS: GABAPENTIN 300 MG CAPSULE GT SCH ×3 (09:58→17:00)
[2017-10-16] MEDS: ASCORBIC ACID 500 MG TABLET GT SCH ×2 (09:58→17:00)
--- NOTE | 2017-10-16 11:00 | NUR ---
Relayed CXR result to CARLI Hoffman. No new order.
[2017-10-16] MEDS: HYDROCODONE/APAP 5/325MG 1 EACH TABLET PO SCH ×2 (12:00→21:32)
[2017-10-16] MEDS: MINERAL OIL/PETROL OINT 396 GM JAR TP SCH ×2 (13:00→21:33)
[2017-10-16] MEDS: BACI/NEOM/POLY B OINT PKT 1 UDPKT PACKET TP SCH ×2 (13:00→21:34)
[2017-10-16] MEDS: HYDROGEN PEROXIDE 480 ML BOTTLE TP SCH ×2 (13:00→21:34)
[2017-10-16] MEDS: CLOTRIMAZOLE 1% 15 GM TUBE TP SCH ×4 (13:00→17:00)
[2017-10-16] MEDS: Z GUARD REMEDY 4 OZ OINT TP SCH (13:00)
[2017-10-16] MEDS: DAKINS QUARTER STRENGTH (0.125%) 480 ML BOTTLE TOP SCH ×2 (13:00→21:33)
--- NOTE | 2017-10-16 19:15 | NUR ---
RECEIVED TRACH PT ON [facility] VENT WITH SHILEY 8 CUFFED TRACH TUBE. IRON WORKER FOREMAN DONE. TRACH IS PATENT AND SECURED. ALARMS SET AND AUDIBLE. VENT PLUGGED IN TO RED OUTLET. AMBU BAG AT BED SIDE. BREATHING TX GIVEN AT THIS TIME, NO ADVERSE REACTION NOTED. NO RESP DISTRESS NOTED AT THIS TIME. WILL CONT TO MONITOR PT.
[2017-10-16] MEDS: CRANBERRY EXT/C/L. SPOROGENES 405 MG/TAB TABLET GT SCH (21:29)
[2017-10-16] MEDS: PROSOURCE / PROSTAT (PYXIS) 30 ML UDC GT SCH (21:30)
[2017-10-16] MEDS: ZINC SULFATE 220 MG CAPSULE PO SCH (21:33)
[2017-10-16] MEDS: ENOXAPARIN SODIUM 40 MG/0.4 ML DISP.SYRIN SQ SCH (21:33)
[2017-10-16] MEDS: POLYETHYLENE GLYCOL 3350 17 GM POWD.PACK GT SCH (21:34)
[2017-10-16] MEDS: ATORVASTATIN 10 MG TABLET GT SCH (21:34)
[2017-10-16 23:58] VITALS: BP 102/65
[2017-10-17] MEDS: IPRATROPIUM NEB FS 0.5 MG/2.5 ML AMPUL.NEB NEB SCH ×4 (00:58→19:04)
[2017-10-17] MEDS: ALBUTEROL HALF STRENGTH 1.25 MG/3 ML VIAL.NEB NEB SCH ×4 (00:58→19:04)
[2017-10-17 08:09] VITALS: BP 118/70
[2017-10-17] MEDS: ACIDOPHILUS/BULGARICUS 1 EACH TAB.CHEW GT SCH ×3 (09:00→17:06)
[2017-10-17] MEDS: Z GUARD REMEDY 4 OZ OINT TP SCH (09:00)
[2017-10-17] MEDS: HYDROGEN PEROXIDE 480 ML BOTTLE TP SCH ×2 (09:00→21:15)
[2017-10-17] MEDS: POVIDONE-IODINE OINT 28.4 GM TUBE TP SCH (09:00)
[2017-10-17] MEDS: BACI/NEOM/POLY B OINT PKT 1 UDPKT PACKET TP SCH ×2 (09:00→21:16)
[2017-10-17] MEDS: MINERAL OIL/PETROL OINT 396 GM JAR TP SCH ×2 (09:00→21:15)
[2017-10-17] MEDS: METHADONE HCL 10 MG TABLET GT SCH (09:00)
[2017-10-17] MEDS: GABAPENTIN 300 MG CAPSULE GT SCH ×3 (09:00→17:06)
[2017-10-17] MEDS: ASCORBIC ACID 500 MG TABLET GT SCH ×2 (09:00→14:44)
[2017-10-17] MEDS: CLOTRIMAZOLE 1% 15 GM TUBE TP SCH ×4 (09:00→17:06)
[2017-10-17] MEDS: ESCITALOPRAM OXALATE (10 MG) 10 MG TABLET GT SCH (09:00)
[2017-10-17] MEDS: FAMOTIDINE (20 MG) 20 MG TABLET GT SCH ×2 (09:00→20:53)
[2017-10-17] MEDS: MULTIVIT, IRON, MIN NO. 8, FA 1 TAB GT SCH (09:00)
[2017-10-17] MEDS: DAKINS QUARTER STRENGTH (0.125%) 480 ML BOTTLE TOP SCH ×2 (09:00→21:14)
[2017-10-17] MEDS: BACLOFEN (10 MG) 10 MG TABLET GT SCH ×4 (09:00→20:53)
[2017-10-17] MEDS: CALCIUM CARBONATE 500 MG TAB.CHEW GT SCH ×3 (09:00→17:06)
[2017-10-17] MEDS: CALCITRIOL 0.25 MCG CAPSULE PO SCH (09:00)
[2017-10-17] MEDS: HYDROCODONE/APAP 5/325MG 1 EACH TABLET PO SCH ×2 (09:00→20:54)
--- NOTE | 2017-10-17 10:18 | NUR ---
PT REC'D AWAKE AND ALERT ON VENT VIA SHILEY #8DCT. CUSTOM GRINDER DONE. NO RESP. DISTRESS NOTED. VENT PLUGGED INTO RED OUTLET. PT IS CURRENTLY ON CONT. POX. PT DOES NOT WANT TO BE SX. WILL CONTINUE TO MONITOR PT. Addendum: 10/17/17 at 1046 by MAURICE DIEZ RT Amended: Links added.
--- NOTE | 2017-10-17 19:07 | NUR ---
PT REC'D AWAKE AND ALERT ON VENT VIA SHILEY #8DCT. POKER PROP PLAYER DONE. NO RESP. DISTRESS NOTED. VENT PLUGGED INTO RED OUTLET. PT IS CURRENTLY ON CONT. POX. PT DOES NOT WANT TO BE SX. WILL CONTINUE TO MONITOR PT. Addendum: 10/17/17 at 1907 by JOSÉ LUIS HARMAN RT Amended: Links added.
[2017-10-17 20:00] VITALS: BP 121/70
[2017-10-17] MEDS: CRANBERRY EXT/C/L. SPOROGENES 405 MG/TAB TABLET GT SCH (20:53)
[2017-10-17] MEDS: PROSOURCE / PROSTAT (PYXIS) 30 ML UDC GT SCH (20:53)
[2017-10-17] MEDS: ZINC SULFATE 220 MG CAPSULE PO SCH (20:54)
[2017-10-17] MEDS: ENOXAPARIN SODIUM 40 MG/0.4 ML DISP.SYRIN SQ SCH (20:54)
[2017-10-17] MEDS: ATORVASTATIN 10 MG TABLET GT SCH (21:16)
[2017-10-17] MEDS: POLYETHYLENE GLYCOL 3350 17 GM POWD.PACK GT SCH (21:16)
[2017-10-18] MEDS: HYDROCODONE/APAP 5/325MG 1 EACH TABLET GT PRN (01:34)
[2017-10-18] MEDS: IPRATROPIUM NEB FS 0.5 MG/2.5 ML AMPUL.NEB NEB SCH ×4 (01:42→19:19)
[2017-10-18] MEDS: ALBUTEROL HALF STRENGTH 1.25 MG/3 ML VIAL.NEB NEB SCH ×4 (01:42→19:19)
[2017-10-18 07:44] VITALS: BP 128/75
[2017-10-18] MEDS: BACLOFEN (10 MG) 10 MG TABLET GT SCH ×4 (09:00→21:50)
[2017-10-18] MEDS: MULTIVIT, IRON, MIN NO. 8, FA 1 TAB GT SCH (09:00)
[2017-10-18] MEDS: ASCORBIC ACID 500 MG TABLET GT SCH ×2 (09:00→16:03)
[2017-10-18] MEDS: CALCIUM CARBONATE 500 MG TAB.CHEW GT SCH ×3 (09:00→16:03)
[2017-10-18] MEDS: ACIDOPHILUS/BULGARICUS 1 EACH TAB.CHEW GT SCH ×3 (09:00→16:02)
[2017-10-18] MEDS: GABAPENTIN 300 MG CAPSULE GT SCH ×3 (09:00→16:02)
[2017-10-18] MEDS: FAMOTIDINE (20 MG) 20 MG TABLET GT SCH ×2 (09:00→21:50)
[2017-10-18] MEDS: ESCITALOPRAM OXALATE (10 MG) 10 MG TABLET GT SCH (09:00)
[2017-10-18] MEDS: METHADONE HCL 10 MG TABLET GT SCH (09:00)
[2017-10-18] MEDS: CALCITRIOL 0.25 MCG CAPSULE PO SCH (09:00)
[2017-10-18] MEDS: MINERAL OIL/PETROL OINT 396 GM JAR TP SCH ×2 (09:00→22:30)
[2017-10-18] MEDS: HYDROCODONE/APAP 5/325MG 1 EACH TABLET PO SCH ×2 (11:30→21:51)
[2017-10-18] MEDS: BACI/NEOM/POLY B OINT PKT 1 UDPKT PACKET TP SCH ×2 (12:30→22:30)
[2017-10-18] MEDS: HYDROGEN PEROXIDE 480 ML BOTTLE TP SCH ×2 (12:30→22:30)
[2017-10-18] MEDS: DAKINS QUARTER STRENGTH (0.125%) 480 ML BOTTLE TOP SCH ×2 (12:30→22:30)
[2017-10-18] MEDS: CLOTRIMAZOLE 1% 15 GM TUBE TP SCH ×4 (12:30→16:03)
[2017-10-18] MEDS: Z GUARD REMEDY 4 OZ OINT TP SCH (12:30)
--- NOTE | 2017-10-18 16:30 | NUR ---
RECEIVED TRACH PT ON [facility] VENT. PT IS UNABLE TO FOLLOW COMMANDS. TRACH IS PATENT AND SECURED. EDUCATION TECHNICIAN DONE. ALARMS SET AND AUDIBLE THROUGH OUT SUBACUTE UNIT . MECHANICAL VENT PLUGGED IN TO RED OUTLET. AMBU BAG & SPARE TRACH AT BED SIDE. BREATHING TX GIVEN PER MD ORDERS. PT SX Q2+PRN. NO RESP DISTRESS NOTED AT THIS TIME. WILL CONT TO MONITOR PT. Addendum: 10/18/17 at 1631 by CHIDI DODSON RT Amended: Links added.
--- NOTE | 2017-10-18 19:20 | NUR ---
PT [facility]D [facility] ON AC MODE. NO RESP DISTRESS OR SOB NOTED. PT IS AWAKE AND ALERT. SX'D FOR MOD AMT OF THICK YELLOW SECRETIONS. TRACH IS INTACT AND PATENT. PT STABLE AT THIS TIME. ALARMS ARE SET AND AUDIBLE. VENT PLUGGED INTO RED OUTLET. AMBU BAG BEDSIDE. WILL CONTINUE TO MONITOR. Addendum: 10/18/17 at 2300 by CAITLIN SOTO RT Amended: Links added.
--- NOTE | 2017-10-18 20:30 | NUR ---
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
[2017-10-18 21:44] VITALS: BP 110/65
[2017-10-18] MEDS: PROSOURCE / PROSTAT (PYXIS) 30 ML UDC GT SCH (21:50)
[2017-10-18] MEDS: CRANBERRY EXT/C/L. SPOROGENES 405 MG/TAB TABLET GT SCH (21:50)
[2017-10-18] MEDS: ZINC SULFATE 220 MG CAPSULE PO SCH (21:52)
[2017-10-18] MEDS: POLYETHYLENE GLYCOL 3350 17 GM POWD.PACK GT SCH (21:56)
[2017-10-18] MEDS: ATORVASTATIN 10 MG TABLET GT SCH (21:56)
[2017-10-18] MEDS: ENOXAPARIN SODIUM 40 MG/0.4 ML DISP.SYRIN SQ SCH (21:56)
[2017-10-19] MEDS: ALBUTEROL HALF STRENGTH 1.25 MG/3 ML VIAL.NEB NEB SCH ×4 (01:21→19:35)
[2017-10-19] MEDS: IPRATROPIUM NEB FS 0.5 MG/2.5 ML AMPUL.NEB NEB SCH ×4 (01:21→19:35)
[2017-10-19 07:54] VITALS: BP 134/78
--- NOTE | 2017-10-19 08:42 | NUR ---
RT NOTE PT RCVD TRACH'D ON MECHANICAL VENT WITH CHARTED SETTINGS. PT SX Q2 + PRN. PT TRACH PATENT AND SECURE. AMBU BAG AT BEDSIDE. VENT PLUGGED INTO RED OUTLET. ALARMS ARE SET AND AUDIBLE. AMBUBAG AND SPARE TRACH AT [facility]. WILL CONTINUE TO MONITOR.
[2017-10-19] MEDS: ESCITALOPRAM OXALATE (10 MG) 10 MG TABLET GT SCH (09:29)
[2017-10-19] MEDS: BACLOFEN (10 MG) 10 MG TABLET GT SCH ×4 (09:29→21:31)
[2017-10-19] MEDS: METHADONE HCL 10 MG TABLET GT SCH (09:29)
[2017-10-19] MEDS: ACIDOPHILUS/BULGARICUS 1 EACH TAB.CHEW GT SCH ×3 (09:29→17:03)
[2017-10-19] MEDS: CALCITRIOL 0.25 MCG CAPSULE PO SCH (09:30)
[2017-10-19] MEDS: MULTIVIT, IRON, MIN NO. 8, FA 1 TAB GT SCH (09:30)
[2017-10-19] MEDS: FAMOTIDINE (20 MG) 20 MG TABLET GT SCH ×2 (09:30→21:31)
[2017-10-19] MEDS: ASCORBIC ACID 500 MG TABLET GT SCH ×2 (09:30→17:03)
[2017-10-19] MEDS: HYDROCODONE/APAP 5/325MG 1 EACH TABLET PO SCH ×2 (09:30→21:32)
[2017-10-19] MEDS: GABAPENTIN 300 MG CAPSULE GT SCH ×3 (09:30→17:03)
[2017-10-19] MEDS: CALCIUM CARBONATE 500 MG TAB.CHEW GT SCH ×3 (09:30→17:03)
[2017-10-19] MEDS: DAKINS QUARTER STRENGTH (0.125%) 480 ML BOTTLE TOP SCH ×2 (10:00→22:15)
[2017-10-19] MEDS: ZINC OXIDE 30 GM TUBE TP SCH ×2 (10:00→22:15)
[2017-10-19] MEDS: HYDROGEN PEROXIDE 480 ML BOTTLE TP SCH ×2 (10:00→22:15)
[2017-10-19] MEDS: BACI/NEOM/POLY B OINT PKT 1 UDPKT PACKET TP SCH ×2 (10:00→22:15)
[2017-10-19] MEDS: MINERAL OIL/PETROL OINT 396 GM JAR TP SCH ×2 (10:00→22:15)
[2017-10-19] MEDS: Z GUARD REMEDY 4 OZ OINT TP SCH (10:00)
[2017-10-19] MEDS: CLOTRIMAZOLE 1% 15 GM TUBE TP SCH ×4 (10:00→17:04)
--- NOTE | 2017-10-19 10:30 | NUR ---
Resident seen by Dr. Hercules for annual eye exam. Resident's [id number] informed.
[2017-10-19] MEDS: PROSOURCE / PROSTAT (PYXIS) 30 ML UDC GT SCH (21:31)
[2017-10-19] MEDS: CRANBERRY EXT/C/L. SPOROGENES 405 MG/TAB TABLET GT SCH (21:31)
[2017-10-19] MEDS: ENOXAPARIN SODIUM 40 MG/0.4 ML DISP.SYRIN SQ SCH (21:32)
[2017-10-19] MEDS: ZINC SULFATE 220 MG CAPSULE PO SCH (21:32)
[2017-10-19 21:47] VITALS: BP 118/69
[2017-10-19] MEDS: POLYETHYLENE GLYCOL 3350 17 GM POWD.PACK GT SCH (22:00)
[2017-10-19] MEDS: ATORVASTATIN 10 MG TABLET GT SCH (22:00)
[2017-10-20] MEDS: IPRATROPIUM NEB FS 0.5 MG/2.5 ML AMPUL.NEB NEB SCH ×4 (01:36→18:52)
[2017-10-20] MEDS: ALBUTEROL HALF STRENGTH 1.25 MG/3 ML VIAL.NEB NEB SCH ×4 (01:36→18:52)
[2017-10-20 07:37] VITALS: BP 130/75
--- NOTE | 2017-10-20 08:23 | NUR ---
RT NOTE PT RCVD TRACH'D ON MECHANICAL VENT WITH CHARTED SETTINGS. PT SX Q2 + PRN. PT TRACH PATENT AND SECURE. AMBU BAG AT BEDSIDE. VENT PLUGGED INTO RED OUTLET. ALARMS ARE SET AND AUDIBLE. AMBUBAG AND SPARE TRACH AT [facility]. WILL CONTINUE TO MONITOR.
[2017-10-20] MEDS: LACTOBACILLUS RHAMNOSUS GG 1 EACH CAP.SPRINK GT SCH ×3 (09:35→17:08)
[2017-10-20] MEDS: BACLOFEN (10 MG) 10 MG TABLET GT SCH ×4 (09:35→21:04)
[2017-10-20] MEDS: ESCITALOPRAM OXALATE (10 MG) 10 MG TABLET GT SCH (09:35)
[2017-10-20] MEDS: MULTIVIT, IRON, MIN NO. 8, FA 1 TAB GT SCH (09:36)
[2017-10-20] MEDS: FAMOTIDINE (20 MG) 20 MG TABLET GT SCH ×2 (09:36→21:04)
[2017-10-20] MEDS: CALCITRIOL 0.25 MCG CAPSULE PO SCH (09:36)
[2017-10-20] MEDS: GABAPENTIN 300 MG CAPSULE GT SCH ×3 (09:36→17:08)
[2017-10-20] MEDS: METHADONE HCL 10 MG TABLET GT SCH (09:36)
[2017-10-20] MEDS: ASCORBIC ACID 500 MG TABLET GT SCH ×2 (09:36→17:08)
[2017-10-20] MEDS: HYDROCODONE/APAP 5/325MG 1 EACH TABLET PO SCH ×2 (09:36→21:05)
[2017-10-20] MEDS: CALCIUM CARBONATE 500 MG TAB.CHEW GT SCH ×3 (09:36→17:08)
[2017-10-20] MEDS: DAKINS QUARTER STRENGTH (0.125%) 480 ML BOTTLE TOP SCH ×2 (10:10→22:00)
[2017-10-20] MEDS: Z GUARD REMEDY 4 OZ OINT TP SCH (10:10)
[2017-10-20] MEDS: BACI/NEOM/POLY B OINT PKT 1 UDPKT PACKET TP SCH ×2 (10:10→22:00)
[2017-10-20] MEDS: ZINC OXIDE 30 GM TUBE TP SCH ×2 (10:10→22:00)
[2017-10-20] MEDS: MINERAL OIL/PETROL OINT 396 GM JAR TP SCH ×2 (10:10→22:00)
[2017-10-20] MEDS: HYDROGEN PEROXIDE 480 ML BOTTLE TP SCH ×2 (10:10→22:00)
[2017-10-20] MEDS: CLOTRIMAZOLE 1% 15 GM TUBE TP SCH ×4 (10:10→17:08)
[2017-10-20] MEDS: MAGNESIUM HYDROXIDE 30 ML UDC GT PRN (18:51)
[2017-10-20] MEDS: NEOMY SULF/BACITRAC ZN/POLY 15 GM TUBE TP SCH (20:00)
[2017-10-20 20:58] VITALS: BP 110/68
[2017-10-20] MEDS: PROSOURCE / PROSTAT (PYXIS) 30 ML UDC GT SCH (21:04)
[2017-10-20] MEDS: CRANBERRY EXT/C/L. SPOROGENES 405 MG/TAB TABLET GT SCH (21:04)
[2017-10-20] MEDS: POLYETHYLENE GLYCOL 3350 17 GM POWD.PACK GT SCH (21:05)
[2017-10-20] MEDS: ATORVASTATIN 10 MG TABLET GT SCH (21:05)
[2017-10-20] MEDS: ENOXAPARIN SODIUM 40 MG/0.4 ML DISP.SYRIN SQ SCH (21:05)
[2017-10-20] MEDS: ZINC SULFATE 220 MG CAPSULE PO SCH (21:05)
[2017-10-21] MEDS: IPRATROPIUM NEB FS 0.5 MG/2.5 ML AMPUL.NEB NEB SCH ×4 (00:48→19:13)
[2017-10-21] MEDS: ALBUTEROL HALF STRENGTH 1.25 MG/3 ML VIAL.NEB NEB SCH ×4 (00:48→19:13)
[2017-10-21 07:41] VITALS: BP 113/64
[2017-10-21] MEDS: POVIDONE-IODINE OINT 28.4 GM TUBE TP SCH (09:00)
[2017-10-21] MEDS: METHADONE HCL 10 MG TABLET GT SCH (09:30)
[2017-10-21] MEDS: ESCITALOPRAM OXALATE (10 MG) 10 MG TABLET GT SCH (09:30)
[2017-10-21] MEDS: BACLOFEN (10 MG) 10 MG TABLET GT SCH ×4 (09:30→21:00)
[2017-10-21] MEDS: LACTOBACILLUS RHAMNOSUS GG 1 EACH CAP.SPRINK GT SCH ×3 (09:30→17:00)
[2017-10-21] MEDS: CALCITRIOL 0.25 MCG CAPSULE PO SCH (09:31)
[2017-10-21] MEDS: CALCIUM CARBONATE 500 MG TAB.CHEW GT SCH ×3 (09:31→17:00)
[2017-10-21] MEDS: ASCORBIC ACID 500 MG TABLET GT SCH ×2 (09:31→17:00)
[2017-10-21] MEDS: HYDROCODONE/APAP 5/325MG 1 EACH TABLET PO SCH ×2 (09:31→21:00)
[2017-10-21] MEDS: MULTIVIT, IRON, MIN NO. 8, FA 1 TAB GT SCH (09:31)
[2017-10-21] MEDS: GABAPENTIN 300 MG CAPSULE GT SCH ×3 (09:31→17:00)
[2017-10-21] MEDS: FAMOTIDINE (20 MG) 20 MG TABLET GT SCH ×2 (09:31→21:00)
[2017-10-21] MEDS: MINERAL OIL/PETROL OINT 396 GM JAR TP SCH ×2 (10:00→21:00)
[2017-10-21] MEDS: ZINC OXIDE 30 GM TUBE TP SCH ×2 (10:00→21:00)
[2017-10-21] MEDS: HYDROGEN PEROXIDE 480 ML BOTTLE TP SCH ×2 (10:00→21:00)
[2017-10-21] MEDS: CLOTRIMAZOLE 1% 15 GM TUBE TP SCH ×4 (10:00→17:00)
[2017-10-21] MEDS: BACI/NEOM/POLY B OINT PKT 1 UDPKT PACKET TP SCH ×2 (10:00→21:00)
[2017-10-21] MEDS: DAKINS QUARTER STRENGTH (0.125%) 480 ML BOTTLE TOP SCH ×2 (10:00→21:00)
[2017-10-21] MEDS: Z GUARD REMEDY 4 OZ OINT TP SCH (10:00)
[2017-10-21] MEDS: NEOMY SULF/BACITRAC ZN/POLY 15 GM TUBE TP SCH (10:00)
--- NOTE | 2017-10-21 17:28 | NUR ---
RT NOTE PT REMAINS MECHANICALLY VENTILATED VIA SHILEY 8 CUFFED TRACHEOSTOMY TUBE. TRACH MIDLINE AND SECURE. CUFF INFLATED. VENTILATOR SETTINGS PRESCRIBED. ALARMS SET PER PROTOCOL AND AUDIBLE. VENT PLUGGED IN TO RED OUTLET. AMBU BAG AT BED SIDE. NO DISTRESS NOTED. Addendum: 10/21/17 at 1728 by KAJAL ARAIZA RT Amended: Links added.
--- NOTE | 2017-10-21 19:18 | NUR ---
PT REC'D TRACHED ON [facility] VENT ON AC MODE. NO RESP DISTRESS OR SOB NOTED. SX'D FOR SMALL AMT OF THICK YELLOW SECRETIONS. TRACH IS INTACT AND PATENT. PT STABLE AT THIS TIME. ALARMS ARE SET AND AUDIBLE. VENT PLUGGED INTO RED OUTLET. AMBU BAG BEDSIDE. WILL CONTINUE TO MONITOR. Addendum: 10/21/17 at 1918 by JOSÉ LUIS HARMAN RT Amended: Links added.
[2017-10-21 20:13] VITALS: BP 114/66
[2017-10-21] MEDS: CRANBERRY EXT/C/L. SPOROGENES 405 MG/TAB TABLET GT SCH (21:00)
[2017-10-21] MEDS: ZINC SULFATE 220 MG CAPSULE PO SCH (21:00)
[2017-10-21] MEDS: ENOXAPARIN SODIUM 40 MG/0.4 ML DISP.SYRIN SQ SCH (21:00)
[2017-10-21] MEDS: PROSOURCE / PROSTAT (PYXIS) 30 ML UDC GT SCH (21:00)
[2017-10-21] MEDS: ATORVASTATIN 10 MG TABLET GT SCH (22:24)
[2017-10-21] MEDS: POLYETHYLENE GLYCOL 3350 17 GM POWD.PACK GT SCH (22:24)
[2017-10-22] MEDS: IPRATROPIUM NEB FS 0.5 MG/2.5 ML AMPUL.NEB NEB SCH ×4 (01:55→19:28)
[2017-10-22] MEDS: ALBUTEROL HALF STRENGTH 1.25 MG/3 ML VIAL.NEB NEB SCH ×4 (01:55→19:29)
[2017-10-22 07:26] VITALS: BP 109/69
[2017-10-22] MEDS: LACTOBACILLUS RHAMNOSUS GG 1 EACH CAP.SPRINK GT SCH ×3 (09:11→16:35)
[2017-10-22] MEDS: MULTIVIT, IRON, MIN NO. 8, FA 1 TAB GT SCH (09:11)
[2017-10-22] MEDS: ESCITALOPRAM OXALATE (10 MG) 10 MG TABLET GT SCH (09:11)
[2017-10-22] MEDS: GABAPENTIN 300 MG CAPSULE GT SCH ×3 (09:11→16:35)
[2017-10-22] MEDS: BACLOFEN (10 MG) 10 MG TABLET GT SCH ×4 (09:11→21:12)
[2017-10-22] MEDS: METHADONE HCL 10 MG TABLET GT SCH (09:11)
[2017-10-22] MEDS: FAMOTIDINE (20 MG) 20 MG TABLET GT SCH ×2 (09:11→21:12)
[2017-10-22] MEDS: CALCIUM CARBONATE 500 MG TAB.CHEW GT SCH ×3 (09:11→16:35)
[2017-10-22] MEDS: ASCORBIC ACID 500 MG TABLET GT SCH ×2 (09:11→16:35)
[2017-10-22] MEDS: HYDROCODONE/APAP 5/325MG 1 EACH TABLET PO SCH ×2 (09:12→21:13)
[2017-10-22] MEDS: CALCITRIOL 0.25 MCG CAPSULE PO SCH (09:12)
[2017-10-22] MEDS: DAKINS QUARTER STRENGTH (0.125%) 480 ML BOTTLE TOP SCH ×2 (09:12→21:13)
[2017-10-22] MEDS: MINERAL OIL/PETROL OINT 396 GM JAR TP SCH ×2 (09:12→21:13)
[2017-10-22] MEDS: BACI/NEOM/POLY B OINT PKT 1 UDPKT PACKET TP SCH ×2 (09:13→21:14)
[2017-10-22] MEDS: CLOTRIMAZOLE 1% 15 GM TUBE TP SCH ×4 (09:13→16:35)
[2017-10-22] MEDS: HYDROGEN PEROXIDE 480 ML BOTTLE TP SCH ×2 (09:13→21:13)
[2017-10-22] MEDS: POVIDONE-IODINE OINT 28.4 GM TUBE TP SCH (09:13)
[2017-10-22] MEDS: NEOMY SULF/BACITRAC ZN/POLY 15 GM TUBE TP SCH (09:13)
[2017-10-22] MEDS: Z GUARD REMEDY 4 OZ OINT TP SCH (09:14)
[2017-10-22] MEDS: ZINC OXIDE 30 GM TUBE TP SCH ×2 (09:14→21:14)
--- NOTE | 2017-10-22 17:48 | NUR ---
RT NOTE PT REMAINS MECHANICALLY VENTILATED VIA SHILEY 8 CUFFED TRACHEOSTOMY TUBE. CUFF INFLATED. TRACH MIDLINE AND SECURE. VENTILATOR SETTINGS PRESCRIBED. ALARMS SET PER PROTOCOL AND AUDIBLE. VENT PLUGGED IN TO RED OUTLET. AMBU BAG AT BED SIDE. NO DISTRESS NOTED. Addendum: 10/22/17 at 1749 by KAJAL ARAIZA RT Amended: Links added.
--- NOTE | 2017-10-22 19:33 | NUR ---
[facility]. NO RESP DISTRESS OR SOB NOTED. SX'D FOR SMALL AMT OF THICK YELLOW SECRETIONS. TRACH IS INTACT AND PATENT. PT STABLE AT THIS TIME. ALARMS ARE SET AND AUDIBLE. VENT PLUGGED INTO RED OUTLET. AMBU BAG BEDSIDE. WILL CONTINUE TO MONITOR. Addendum: 10/22/17 at 1933 by JOSÉ LUIS HARMAN RT Amended: Links added.
[2017-10-22 20:01] VITALS: BP 118/69
[2017-10-22] MEDS: PROSOURCE / PROSTAT (PYXIS) 30 ML UDC GT SCH (21:12)
[2017-10-22] MEDS: CRANBERRY EXT/C/L. SPOROGENES 405 MG/TAB TABLET GT SCH (21:12)
[2017-10-22] MEDS: ZINC SULFATE 220 MG CAPSULE PO SCH (21:13)
[2017-10-22] MEDS: ENOXAPARIN SODIUM 40 MG/0.4 ML DISP.SYRIN SQ SCH (21:13)
[2017-10-22] MEDS: POLYETHYLENE GLYCOL 3350 17 GM POWD.PACK GT SCH (21:14)
[2017-10-22] MEDS: ATORVASTATIN 10 MG TABLET GT SCH (21:14)
[2017-10-23] MEDS: ALBUTEROL HALF STRENGTH 1.25 MG/3 ML VIAL.NEB NEB SCH ×4 (01:07→19:11)
[2017-10-23] MEDS: IPRATROPIUM NEB FS 0.5 MG/2.5 ML AMPUL.NEB NEB SCH ×4 (01:07→19:11)
[2017-10-23 07:39] VITALS: BP 119/72
[2017-10-23] MEDS: LACTOBACILLUS RHAMNOSUS GG 1 EACH CAP.SPRINK GT SCH ×3 (09:10→17:13)
[2017-10-23] MEDS: ESCITALOPRAM OXALATE (10 MG) 10 MG TABLET GT SCH (09:10)
[2017-10-23] MEDS: BACLOFEN (10 MG) 10 MG TABLET GT SCH ×4 (09:10→21:24)
[2017-10-23] MEDS: GABAPENTIN 300 MG CAPSULE GT SCH ×3 (09:11→17:13)
[2017-10-23] MEDS: FAMOTIDINE (20 MG) 20 MG TABLET GT SCH ×2 (09:11→21:24)
[2017-10-23] MEDS: METHADONE HCL 10 MG TABLET GT SCH (09:11)
[2017-10-23] MEDS: MULTIVIT, IRON, MIN NO. 8, FA 1 TAB GT SCH (09:11)
[2017-10-23] MEDS: CALCITRIOL 0.25 MCG CAPSULE PO SCH (09:12)
[2017-10-23] MEDS: ASCORBIC ACID 500 MG TABLET GT SCH ×2 (09:12→17:13)
[2017-10-23] MEDS: CALCIUM CARBONATE 500 MG TAB.CHEW GT SCH ×3 (09:12→17:13)
[2017-10-23] MEDS: HYDROCODONE/APAP 5/325MG 1 EACH TABLET PO SCH ×2 (12:20→21:25)
[2017-10-23] MEDS: CLOTRIMAZOLE 1% 15 GM TUBE TP SCH ×4 (13:20→17:13)
[2017-10-23] MEDS: ZINC OXIDE 30 GM TUBE TP SCH ×2 (13:20→21:26)
[2017-10-23] MEDS: DAKINS QUARTER STRENGTH (0.125%) 480 ML BOTTLE TOP SCH ×2 (13:20→21:26)
[2017-10-23] MEDS: BACI/NEOM/POLY B OINT PKT 1 UDPKT PACKET TP SCH ×2 (13:20→21:26)
[2017-10-23] MEDS: Z GUARD REMEDY 4 OZ OINT TP SCH (13:20)
[2017-10-23] MEDS: POVIDONE-IODINE OINT 28.4 GM TUBE TP SCH (13:20)
[2017-10-23] MEDS: HYDROGEN PEROXIDE 480 ML BOTTLE TP SCH ×2 (13:20→21:26)
[2017-10-23] MEDS: MINERAL OIL/PETROL OINT 396 GM JAR TP SCH ×2 (13:20→21:26)
[2017-10-23] MEDS: NEOMY SULF/BACITRAC ZN/POLY 15 GM TUBE TP SCH (13:20)
[2017-10-23 20:00] VITALS: BP 110/66
[2017-10-23] MEDS: PROSOURCE / PROSTAT (PYXIS) 30 ML UDC GT SCH (21:24)
[2017-10-23] MEDS: CRANBERRY EXT/C/L. SPOROGENES 405 MG/TAB TABLET GT SCH (21:24)
[2017-10-23] MEDS: ZINC SULFATE 220 MG CAPSULE PO SCH (21:25)
[2017-10-23] MEDS: ENOXAPARIN SODIUM 40 MG/0.4 ML DISP.SYRIN SQ SCH (21:25)
[2017-10-23] MEDS: POLYETHYLENE GLYCOL 3350 17 GM POWD.PACK GT SCH (21:26)
[2017-10-23] MEDS: ATORVASTATIN 10 MG TABLET GT SCH (21:26)
[2017-10-24] MEDS: IPRATROPIUM NEB FS 0.5 MG/2.5 ML AMPUL.NEB NEB SCH ×4 (00:51→19:30)
[2017-10-24] MEDS: ALBUTEROL HALF STRENGTH 1.25 MG/3 ML VIAL.NEB NEB SCH ×4 (00:51→19:30)
[2017-10-24 07:43] VITALS: BP 121/71
[2017-10-24] MEDS: ASCORBIC ACID 500 MG TABLET GT SCH ×2 (09:00→16:47)
[2017-10-24] MEDS: CALCIUM CARBONATE 500 MG TAB.CHEW GT SCH ×3 (09:00→16:47)
--- NOTE | 2017-10-24 09:15 | NUR ---
Late entry for 10/23/17 Seen by SCHOOL PHOTOGRAPH EDITOR Peggy Hoffman. Relayed CXR result to her. She said pt might have to just stay on the vent since pt already failed weaning 3 times.
[2017-10-24] MEDS: ESCITALOPRAM OXALATE (10 MG) 10 MG TABLET GT SCH (09:57)
[2017-10-24] MEDS: GABAPENTIN 300 MG CAPSULE GT SCH ×3 (09:57→16:47)
[2017-10-24] MEDS: BACLOFEN (10 MG) 10 MG TABLET GT SCH ×4 (09:57→21:08)
[2017-10-24] MEDS: CALCITRIOL 0.25 MCG CAPSULE PO SCH (09:58)
[2017-10-24] MEDS: FAMOTIDINE (20 MG) 20 MG TABLET GT SCH ×2 (09:58→21:08)
[2017-10-24] MEDS: MULTIVIT, IRON, MIN NO. 8, FA 1 TAB GT SCH (09:59)
[2017-10-24] MEDS: METHADONE HCL 10 MG TABLET GT SCH (09:59)
[2017-10-24] MEDS: LACTOBACILLUS RHAMNOSUS GG 1 EACH CAP.SPRINK GT SCH ×3 (10:10→16:45)
--- NOTE | 2017-10-24 10:18 | NUR ---
RAVI called [facility] ([phone]) to see if they can come on Tuesday September 26, 2017 to complete new advanced directive paperwork for the resident. Per Vilma, she will be available after 1pm. RAVI left a message for [facility] as no one answered. RAVI will follow up. Addendum: 10/24/17 at 1534 by HECTOR RODRIGUES RAVI received a call back from Cristina. She noted she heard the RAVI's message and that the [id number]-[id number] does not need to be present. She noted that their office is a bit busy and that she can anticipate coming in the next two weeks. She asked social secretary to leave the paperwork ready for her and RAVI informed her that she will leave it with the charge nurse in the resident's chart. Informed charge nurse and placed the paperwork in the resident's chart. Informed [id number] Vilma.
[2017-10-24] MEDS: ACETAMINOPHEN 650 MG/20 ML UDC- FOR SA PATIENTS ONLY GT PRN (12:42)
[2017-10-24] MEDS: HYDROCODONE/APAP 5/325MG 1 EACH TABLET PO SCH ×2 (14:00→21:09)
[2017-10-24] MEDS: POVIDONE-IODINE OINT 28.4 GM TUBE TP SCH (14:40)
[2017-10-24] MEDS: NEOMY SULF/BACITRAC ZN/POLY 15 GM TUBE TP SCH (14:40)
[2017-10-24] MEDS: DAKINS QUARTER STRENGTH (0.125%) 480 ML BOTTLE TOP SCH ×2 (14:40→21:10)
[2017-10-24] MEDS: BACI/NEOM/POLY B OINT PKT 1 UDPKT PACKET TP SCH ×2 (14:40→21:10)
[2017-10-24] MEDS: HYDROGEN PEROXIDE 480 ML BOTTLE TP SCH ×2 (14:40→21:10)
[2017-10-24] MEDS: CLOTRIMAZOLE 1% 15 GM TUBE TP SCH ×4 (14:40→17:09)
[2017-10-24] MEDS: Z GUARD REMEDY 4 OZ OINT TP SCH (14:40)
[2017-10-24] MEDS: MINERAL OIL/PETROL OINT 396 GM JAR TP SCH ×2 (14:40→21:10)
[2017-10-24] MEDS: ZINC OXIDE 30 GM TUBE TP SCH ×2 (14:40→21:10)
--- NOTE | 2017-10-24 17:25 | NUR ---
Pt's midline no longer being used. Received order to DC midline. Pt tolerated procedure well. No bleeding noted. Catheter tip intact.
[2017-10-24] MEDS: PROSOURCE / PROSTAT (PYXIS) 30 ML UDC GT SCH (21:08)
[2017-10-24] MEDS: CRANBERRY EXT/C/L. SPOROGENES 405 MG/TAB TABLET GT SCH (21:08)
[2017-10-24] MEDS: ZINC SULFATE 220 MG CAPSULE PO SCH (21:09)
[2017-10-24] MEDS: ENOXAPARIN SODIUM 40 MG/0.4 ML DISP.SYRIN SQ SCH (21:10)
[2017-10-24] MEDS: ATORVASTATIN 10 MG TABLET GT SCH (21:10)
[2017-10-24] MEDS: POLYETHYLENE GLYCOL 3350 17 GM POWD.PACK GT SCH (21:10)
[2017-10-25] MEDS: ALBUTEROL HALF STRENGTH 1.25 MG/3 ML VIAL.NEB NEB SCH ×4 (00:30→19:45)
[2017-10-25] MEDS: IPRATROPIUM NEB FS 0.5 MG/2.5 ML AMPUL.NEB NEB SCH ×4 (00:30→19:45)
--- NOTE | 2017-10-25 05:35 | NUR ---
[facility]. NO RESP DISTRESS OR SOB NOTED. SX'D FOR SMALL AMT OF THICK YELLOW SECRETIONS. TRACH IS INTACT AND PATENT. PT STABLE AT THIS TIME. ALARMS ARE SET AND AUDIBLE. VENT PLUGGED INTO RED OUTLET. AMBU BAG BEDSIDE. WILL CONTINUE TO MONITOR. Addendum: 10/25/17 at 0535 by MARINA COURTNEY RT Amended: Links added.
[2017-10-25 07:41] VITALS: BP 102/71
--- NOTE | 2017-10-25 08:53 | NUR ---
PT RCYOUSIF'D ON MECHANICAL VENT WITH CHARTED SETTINGS. TX GIVEN AND NO ADVERSE REACTION NOTED. SX DONE. PT TRACH PATENT AND SECURE. AMBU BAG AT BEDSIDE. VENT PLUGGED INTO RED OUTLET. ALARMS ARE ON AND AUDIBLE. WILL CONTINUE TO MONITOR. Addendum: 10/25/17 at 0853 by LUCIANA TRIMBLE RT Amended: Links added.
[2017-10-25] MEDS: METHADONE HCL 10 MG TABLET GT SCH (09:12)
[2017-10-25] MEDS: LACTOBACILLUS RHAMNOSUS GG 1 EACH CAP.SPRINK GT SCH ×3 (09:12→17:00)
[2017-10-25] MEDS: MULTIVIT, IRON, MIN NO. 8, FA 1 TAB GT SCH (09:12)
[2017-10-25] MEDS: BACLOFEN (10 MG) 10 MG TABLET GT SCH ×4 (09:12→21:28)
[2017-10-25] MEDS: GABAPENTIN 300 MG CAPSULE GT SCH ×3 (09:12→17:00)
[2017-10-25] MEDS: ESCITALOPRAM OXALATE (10 MG) 10 MG TABLET GT SCH (09:12)
[2017-10-25] MEDS: FAMOTIDINE (20 MG) 20 MG TABLET GT SCH ×2 (09:12→21:28)
[2017-10-25] MEDS: ASCORBIC ACID 500 MG TABLET GT SCH ×2 (09:13→17:00)
[2017-10-25] MEDS: CALCIUM CARBONATE 500 MG TAB.CHEW GT SCH ×3 (09:13→17:00)
[2017-10-25] MEDS: DAKINS QUARTER STRENGTH (0.125%) 480 ML BOTTLE TOP SCH ×2 (09:13→22:15)
[2017-10-25] MEDS: HYDROCODONE/APAP 5/325MG 1 EACH TABLET PO SCH ×2 (09:13→21:29)
[2017-10-25] MEDS: CALCITRIOL 0.25 MCG CAPSULE PO SCH (09:13)
[2017-10-25] MEDS: ZINC OXIDE 30 GM TUBE TP SCH ×2 (09:14→22:15)
[2017-10-25] MEDS: Z GUARD REMEDY 4 OZ OINT TP SCH (09:14)
[2017-10-25] MEDS: MINERAL OIL/PETROL OINT 396 GM JAR TP SCH ×2 (09:14→22:15)
[2017-10-25] MEDS: NEOMY SULF/BACITRAC ZN/POLY 15 GM TUBE TP SCH (09:14)
[2017-10-25] MEDS: HYDROGEN PEROXIDE 480 ML BOTTLE TP SCH ×2 (09:14→22:15)
[2017-10-25] MEDS: POVIDONE-IODINE OINT 28.4 GM TUBE TP SCH (09:14)
[2017-10-25] MEDS: BACI/NEOM/POLY B OINT PKT 1 UDPKT PACKET TP SCH ×2 (09:14→22:15)
[2017-10-25] MEDS: CLOTRIMAZOLE 1% 15 GM TUBE TP SCH ×4 (09:14→17:00)
--- NOTE | 2017-10-25 10:45 | NUR ---
RN NOTE NOTED ORDERS RECEIVED FROM CALRI VELASCO.
--- NOTE | 2017-10-25 10:54 | NUR ---
PLACED PT ON SIMV PER MD ORDERS. PT TOLERATING SETTINGS WELL AT THIS TIME. NO RESPIRATORY DISTRESS OR SOB NOTED. CHARGE NURSE REZA ZHENG. WILL DO AN ABG AFTER 2 HOURS. WILL CONTINUE TO MONITOR. Addendum: 10/25/17 at 1107 by LUCIANA TRIMBLE RT Amended: Links added.
[2017-10-25 13:12] LABS: ABG BASE EXCESS 4.4 mmol/L; ABG OXYGEN SATURATION 95.4 % (92.0-98.5); ABG PCO2 50.4 mmHg (35.0-45.0); ABG PH 7.391 (7.350-7.450); ABG PO2 84.1 mmHg (75.0-100.0); AaDO2 70.6 mmHg; COHb 0.3 % (0.5-1.5); MetHb 0.8 % (0.0-1.5); O2Hb 94.4 % (94.0-97.0); SITE, ABG Left Radial
--- NOTE | 2017-10-25 20:31 | NUR ---
PATIENT RECEIVED ON TRACHED ON MECHANICAL VENTILATION. SP02 > 92%. AMBU BAG/BACK UP TRACH @ BEDSIDE. TX GIVEN, NO ADVERSE REACTIONS NOTED. SX DONE, TRACH SECURED AND PATENT. SMALL THICK WHITE YELLOW SECRETIONS NOTED. ALARMS ON AND AUDIBLE. NO DISTRESS NOTED. WILL MONITOR T/O SHIFT. Addendum: 10/25/17 at 2031 by VERNELL CHRISTINE RT Amended: Links added.
[2017-10-25] MEDS: CRANBERRY EXT/C/L. SPOROGENES 405 MG/TAB TABLET GT SCH (21:28)
[2017-10-25] MEDS: PROSOURCE / PROSTAT (PYXIS) 30 ML UDC GT SCH (21:29)
[2017-10-25] MEDS: ZINC SULFATE 220 MG CAPSULE PO SCH (21:29)
[2017-10-25] MEDS: ENOXAPARIN SODIUM 40 MG/0.4 ML DISP.SYRIN SQ SCH (21:29)
[2017-10-25] MEDS: ATORVASTATIN 10 MG TABLET GT SCH (21:30)
[2017-10-25] MEDS: POLYETHYLENE GLYCOL 3350 17 GM POWD.PACK GT SCH (21:30)
[2017-10-25 23:31] VITALS: BP 108/66
[2017-10-26] MEDS: ALBUTEROL HALF STRENGTH 1.25 MG/3 ML VIAL.NEB NEB SCH ×4 (01:49→19:28)
[2017-10-26] MEDS: IPRATROPIUM NEB FS 0.5 MG/2.5 ML AMPUL.NEB NEB SCH ×4 (01:49→19:28)
--- NOTE | 2017-10-26 08:07 | NUR ---
RT MALE PT RECEIVED TRACHED AND ON VENT W NOTED SETTINGS. ALARMS ARE ON AND AUDIBLE W AMBUBAG AT HOB. FAMILY MEDICINE CHAIR CUFF PRESSURE NOTED. VENT PLUGGED INTO RED OUTLET. PT TOLERATING HHN TXS WELL. LARGE AMNT OF THICK WHITE SECRETIONS OBSERVED. NO DISTRESS NOTED AT THIS TIME. WILL CONTINUE TO MONITOR Addendum: 10/26/17 at 1457 by SUNG KERN RT Amended: Links added.
[2017-10-26] MEDS: ESCITALOPRAM OXALATE (10 MG) 10 MG TABLET GT SCH (09:20)
[2017-10-26] MEDS: BACLOFEN (10 MG) 10 MG TABLET GT SCH ×4 (09:20→21:00)
[2017-10-26] MEDS: LACTOBACILLUS RHAMNOSUS GG 1 EACH CAP.SPRINK GT SCH ×3 (09:20→16:20)
[2017-10-26] MEDS: METHADONE HCL 10 MG TABLET GT SCH (09:21)
[2017-10-26] MEDS: GABAPENTIN 300 MG CAPSULE GT SCH ×3 (09:21→16:20)
[2017-10-26] MEDS: CALCITRIOL 0.25 MCG CAPSULE PO SCH (09:21)
[2017-10-26] MEDS: ASCORBIC ACID 500 MG TABLET GT SCH ×2 (09:21→16:20)
[2017-10-26] MEDS: FAMOTIDINE (20 MG) 20 MG TABLET GT SCH ×2 (09:21→21:00)
[2017-10-26] MEDS: CALCIUM CARBONATE 500 MG TAB.CHEW GT SCH ×3 (09:21→16:20)
[2017-10-26] MEDS: MULTIVIT, IRON, MIN NO. 8, FA 1 TAB GT SCH (09:21)
[2017-10-26] MEDS: HYDROCODONE/APAP 5/325MG 1 EACH TABLET PO SCH ×2 (14:00→21:00)
[2017-10-26] MEDS: Z GUARD REMEDY 4 OZ OINT TP SCH (14:30)
[2017-10-26] MEDS: CLOTRIMAZOLE 1% 15 GM TUBE TP SCH ×4 (14:30→16:20)
[2017-10-26] MEDS: NEOMY SULF/BACITRAC ZN/POLY 15 GM TUBE TP SCH (14:30)
[2017-10-26] MEDS: POVIDONE-IODINE OINT 28.4 GM TUBE TP SCH (14:30)
[2017-10-26] MEDS: ZINC OXIDE 30 GM TUBE TP SCH ×2 (14:30→21:00)
[2017-10-26] MEDS: MINERAL OIL/PETROL OINT 396 GM JAR TP SCH ×2 (14:30→21:00)
[2017-10-26] MEDS: DAKINS QUARTER STRENGTH (0.125%) 480 ML BOTTLE TOP SCH ×2 (14:30→21:00)
[2017-10-26] MEDS: HYDROGEN PEROXIDE 480 ML BOTTLE TP SCH ×2 (14:30→21:00)
--- NOTE | 2017-10-26 14:43 | NUR ---
Room visit with social security benefits interviewer for BIMS and Mood interview. Updated resident about his current pressure ulcer sites. Explained risks of not turning/repositioning and revisited his goal. Agreed to continue with turning/repositioning every 3 hours during the day for total of 4 position changes and every 4 hours during the night for total of 3. Addendum: 10/26/17 at 1539 by DEVIN CALLES RN Resident remains with episodes of refusing to turn/reposition and encouraged to comply with his set goal.
--- NOTE | 2017-10-26 18:43 | NUR ---
Dr. Walker notified that Cranberry capsule is not available. No new order.
[2017-10-26] MEDS: CRANBERRY EXT/C/L. SPOROGENES 405 MG/TAB TABLET GT SCH (21:00)
[2017-10-26] MEDS: PROSOURCE / PROSTAT (PYXIS) 30 ML UDC GT SCH (21:00)
[2017-10-26] MEDS: ZINC SULFATE 220 MG CAPSULE PO SCH (21:00)
[2017-10-26] MEDS: ENOXAPARIN SODIUM 40 MG/0.4 ML DISP.SYRIN SQ SCH (21:00)
--- NOTE | 2017-10-26 21:03 | NUR ---
PATIENT RECEIVED TRACHED ON MECHANICAL VENTILATION. SP02 > 92%. VENT PLUGGED INTO RED OUTLET. AMBU BAG/BACK UP TRACH @ BEDSIDE. TX GIVEN, NO ADVERSE REACTIONS NOTED. SX DONE, MODERATE WHITE YELLOW SECRETIONS NOTED. ALARMS ON AND AUDIBLE. NO DISTRESS NOTED. WILL MONITOR T/O SHIFT. Addendum: 10/26/17 at 2105 by VERNELL CHRISTINE RT Amended: Links added.
[2017-10-26 21:04] VITALS: BP 120/67
[2017-10-26] MEDS: ATORVASTATIN 10 MG TABLET GT SCH (22:03)
[2017-10-26] MEDS: POLYETHYLENE GLYCOL 3350 17 GM POWD.PACK GT SCH (22:03)
[2017-10-27] MEDS: ALBUTEROL HALF STRENGTH 1.25 MG/3 ML VIAL.NEB NEB SCH ×4 (01:23→19:03)
[2017-10-27] MEDS: IPRATROPIUM NEB FS 0.5 MG/2.5 ML AMPUL.NEB NEB SCH ×4 (01:23→19:03)
[2017-10-27 07:57] VITALS: BP 123/71
[2017-10-27] MEDS: POVIDONE-IODINE OINT 28.4 GM TUBE TP SCH (09:00)
[2017-10-27] MEDS: CLOTRIMAZOLE 1% 15 GM TUBE TP SCH ×4 (09:00→17:37)
[2017-10-27] MEDS: DAKINS QUARTER STRENGTH (0.125%) 480 ML BOTTLE TOP SCH ×2 (09:00→22:00)
[2017-10-27] MEDS: MINERAL OIL/PETROL OINT 396 GM JAR TP SCH ×2 (09:00→22:00)
[2017-10-27] MEDS: Z GUARD REMEDY 4 OZ OINT TP SCH (09:00)
[2017-10-27] MEDS: NEOMY SULF/BACITRAC ZN/POLY 15 GM TUBE TP SCH (09:00)
[2017-10-27] MEDS: ZINC OXIDE 30 GM TUBE TP SCH ×2 (09:00→22:00)
[2017-10-27] MEDS: HYDROGEN PEROXIDE 480 ML BOTTLE TP SCH ×2 (09:00→22:00)
[2017-10-27] MEDS: LACTOBACILLUS RHAMNOSUS GG 1 EACH CAP.SPRINK GT SCH ×3 (09:35→17:30)
[2017-10-27] MEDS: ESCITALOPRAM OXALATE (10 MG) 10 MG TABLET GT SCH (09:35)
[2017-10-27] MEDS: MULTIVIT, IRON, MIN NO. 8, FA 1 TAB GT SCH (09:36)
[2017-10-27] MEDS: CALCIUM CARBONATE 500 MG TAB.CHEW GT SCH ×3 (09:36→17:31)
[2017-10-27] MEDS: ASCORBIC ACID 500 MG TABLET GT SCH ×2 (09:36→17:31)
[2017-10-27] MEDS: GABAPENTIN 300 MG CAPSULE GT SCH ×3 (09:36→17:31)
[2017-10-27] MEDS: BACLOFEN (10 MG) 10 MG TABLET GT SCH ×4 (09:36→21:21)
[2017-10-27] MEDS: METHADONE HCL 10 MG TABLET GT SCH (09:36)
[2017-10-27] MEDS: FAMOTIDINE (20 MG) 20 MG TABLET GT SCH ×2 (09:36→21:21)
[2017-10-27] MEDS: HYDROCODONE/APAP 5/325MG 1 EACH TABLET PO SCH ×2 (09:37→21:21)
[2017-10-27] MEDS: CALCITRIOL 0.25 MCG CAPSULE PO SCH (09:37)
--- NOTE | 2017-10-27 09:39 | NUR ---
Social Service section of [employer] (2nd quarter) completed. Resident is awake and was able to answer all questions asked. He was unable to currently state the correct month, year, and date. Resident understands need for placement at this time. [id number] Vilma remains his contact and she is involved in his care. Resident able to make his needs known. Resident has a trach and is Quadriplegic, needs total care. RAVI helps resident with access to his iphone assisting him in making phone calls, sending texts and emails. At times, he becomes frustrated when he does not feel well or is in alot of pain. Most recently, he has been on the ventilator and becomes frustrated when it starts beeping. Resident was seen by the design lead Dr. De La Vega on 08/25/2017 for follow up podiatry exam, by the travel sales consultant Dr. Hercules on 10/19/2017 for annual eye exam, and by the dentist Dr. Rome TERRAZAS on 09/11/2017. He is awaiting followup with Dr. Marianne TERRAZAS at the dentist's office. He is able to make his needs known and can communicate when he is in pain.
--- NOTE | 2017-10-27 10:38 | NUR ---
RT NOTE RECEIVED PT MECHANICALLY VENTILATED VIA SHILEY 8 CUFFED TRACHEOSTOMY TUBE. CUFF INFLATED VIA ENVIRONMENTAL CONSULTANT. TRACH TUBE MIDLINE AND SECURE. VENTILATOR SETTINGS PRESCRIBED. ALARMS SET PER PROTOCOL AND AUDIBLE. VENT PLUGGED IN TO RED OUTLET. AMBU BAG AT BED SIDE. NO DISTRESS NOTED AT MOMENT. Addendum: 10/27/17 at 1039 by KAJAL ARAIZA RT Amended: Links added.
--- NOTE | 2017-10-27 19:52 | NUR ---
PATIENT RECEIVED ON MECHANICAL VENTILATION. PT SX'D MOD YELLOW/WHITE SECRETIONS. BREATHING TX GIVEN, NO ADVERSE REACTIONS NOTED. VENT PLUGGED INTO RED OUTLET. AMBU BAG IS AT BEDSIDE ALONG WITH SPARE TRACH. ALARMS ARE ON AND AUDIBLE. NO DISTRESS NOTED. WILL CONT TO MONITOR PT. Addendum: 10/27/17 at 1953 by JC VICTORIA RT Amended: Links added.
[2017-10-27] MEDS: PROSOURCE / PROSTAT (PYXIS) 30 ML UDC GT SCH (21:21)
[2017-10-27] MEDS: ZINC SULFATE 220 MG CAPSULE PO SCH (21:21)
[2017-10-27] MEDS: CRANBERRY EXT/C/L. SPOROGENES 405 MG/TAB TABLET GT SCH (21:21)
[2017-10-27] MEDS: ATORVASTATIN 10 MG TABLET GT SCH (21:22)
[2017-10-27] MEDS: ENOXAPARIN SODIUM 40 MG/0.4 ML DISP.SYRIN SQ SCH (21:22)
[2017-10-27] MEDS: POLYETHYLENE GLYCOL 3350 17 GM POWD.PACK GT SCH (21:22)
[2017-10-27 22:07] VITALS: BP 102/59
[2017-10-27] MEDS: MAGNESIUM HYDROXIDE 30 ML UDC GT PRN (23:00)
[2017-10-28] MEDS: ALBUTEROL HALF STRENGTH 1.25 MG/3 ML VIAL.NEB NEB SCH ×4 (01:07→19:22)
[2017-10-28] MEDS: IPRATROPIUM NEB FS 0.5 MG/2.5 ML AMPUL.NEB NEB SCH ×4 (01:07→19:22)
[2017-10-28] MEDS: MINERAL OIL/PETROL OINT 396 GM JAR TP SCH ×2 (09:00→21:53)
[2017-10-28] MEDS: HYDROGEN PEROXIDE 480 ML BOTTLE TP SCH ×2 (09:00→21:53)
[2017-10-28] MEDS: Z GUARD REMEDY 4 OZ OINT TP SCH (09:00)
[2017-10-28] MEDS: POVIDONE-IODINE OINT 28.4 GM TUBE TP SCH (09:00)
[2017-10-28] MEDS: ZINC OXIDE 30 GM TUBE TP SCH ×2 (09:00→21:53)
[2017-10-28] MEDS: NEOMY SULF/BACITRAC ZN/POLY 15 GM TUBE TP SCH (09:00)
[2017-10-28] MEDS: CLOTRIMAZOLE 1% 15 GM TUBE TP SCH ×4 (09:00→17:30)
[2017-10-28] MEDS: DAKINS QUARTER STRENGTH (0.125%) 480 ML BOTTLE TOP SCH ×2 (09:00→21:53)
[2017-10-28] MEDS: LACTOBACILLUS RHAMNOSUS GG 1 EACH CAP.SPRINK GT SCH ×3 (09:27→17:39)
[2017-10-28] MEDS: BACLOFEN (10 MG) 10 MG TABLET GT SCH ×4 (09:27→21:33)
[2017-10-28] MEDS: ESCITALOPRAM OXALATE (10 MG) 10 MG TABLET GT SCH (09:27)
[2017-10-28] MEDS: MULTIVIT, IRON, MIN NO. 8, FA 1 TAB GT SCH (09:29)
[2017-10-28] MEDS: FAMOTIDINE (20 MG) 20 MG TABLET GT SCH ×2 (09:29→21:33)
[2017-10-28] MEDS: GABAPENTIN 300 MG CAPSULE GT SCH ×3 (09:29→17:29)
[2017-10-28] MEDS: METHADONE HCL 10 MG TABLET GT SCH (09:29)
[2017-10-28] MEDS: ASCORBIC ACID 500 MG TABLET GT SCH ×2 (09:30→17:30)
[2017-10-28] MEDS: CALCIUM CARBONATE 500 MG TAB.CHEW GT SCH ×3 (09:30→17:29)
[2017-10-28] MEDS: CALCITRIOL 0.25 MCG CAPSULE PO SCH (09:31)
[2017-10-28] MEDS: HYDROCODONE/APAP 5/325MG 1 EACH TABLET PO SCH ×2 (09:31→21:33)
[2017-10-28 17:25] VITALS: BP 126/78
[2017-10-28 20:00] VITALS: BP 100/60
--- NOTE | 2017-10-28 20:02 | NUR ---
PT RCVD NENA'D ON MECHANICAL VENT WITH CHARTED SETTINGS. TX GIVEN AND NO ADVERSE REACTION NOTED. SX DONE. PT TRACH PATENT AND SECURE. AMBU BAG AT BEDSIDE. VENT PLUGGED INTO RED OUTLET. ALARMS ARE ON AND AUDIBLE. WILL CONTINUE TO MONITOR. Addendum: 10/28/17 at 2001 by LUCIANA TRIMBLE RT Amended: Links added.
[2017-10-28] MEDS: CRANBERRY EXT/C/L. SPOROGENES 405 MG/TAB TABLET GT SCH (21:33)
[2017-10-28] MEDS: PROSOURCE / PROSTAT (PYXIS) 30 ML UDC GT SCH (21:33)
[2017-10-28] MEDS: ZINC SULFATE 220 MG CAPSULE PO SCH (21:33)
[2017-10-28] MEDS: ENOXAPARIN SODIUM 40 MG/0.4 ML DISP.SYRIN SQ SCH (21:34)
[2017-10-28] MEDS: ATORVASTATIN 10 MG TABLET GT SCH (21:53)
[2017-10-28] MEDS: POLYETHYLENE GLYCOL 3350 17 GM POWD.PACK GT SCH (21:53)
[2017-10-29] MEDS: ALBUTEROL HALF STRENGTH 1.25 MG/3 ML VIAL.NEB NEB SCH ×4 (00:43→19:30)
[2017-10-29] MEDS: IPRATROPIUM NEB FS 0.5 MG/2.5 ML AMPUL.NEB NEB SCH ×4 (00:43→19:30)
[2017-10-29 08:17] VITALS: BP 133/78
[2017-10-29] MEDS: LACTOBACILLUS RHAMNOSUS GG 1 EACH CAP.SPRINK GT SCH ×3 (08:46→16:26)
[2017-10-29] MEDS: ESCITALOPRAM OXALATE (10 MG) 10 MG TABLET GT SCH (08:46)
[2017-10-29] MEDS: BACLOFEN (10 MG) 10 MG TABLET GT SCH ×4 (08:47→21:42)
[2017-10-29] MEDS: ASCORBIC ACID 500 MG TABLET GT SCH ×2 (08:47→16:27)
[2017-10-29] MEDS: MULTIVIT, IRON, MIN NO. 8, FA 1 TAB GT SCH (08:47)
[2017-10-29] MEDS: METHADONE HCL 10 MG TABLET GT SCH (08:47)
[2017-10-29] MEDS: CALCIUM CARBONATE 500 MG TAB.CHEW GT SCH ×3 (08:47→16:27)
[2017-10-29] MEDS: CALCITRIOL 0.25 MCG CAPSULE PO SCH (08:47)
[2017-10-29] MEDS: GABAPENTIN 300 MG CAPSULE GT SCH ×3 (08:47→16:26)
[2017-10-29] MEDS: FAMOTIDINE (20 MG) 20 MG TABLET GT SCH ×2 (08:47→21:42)
[2017-10-29] MEDS: HYDROCODONE/APAP 5/325MG 1 EACH TABLET PO SCH ×2 (12:00→21:42)
[2017-10-29] MEDS: MINERAL OIL/PETROL OINT 396 GM JAR TP SCH ×2 (12:30→22:00)
[2017-10-29] MEDS: HYDROGEN PEROXIDE 480 ML BOTTLE TP SCH ×2 (12:30→22:00)
[2017-10-29] MEDS: Z GUARD REMEDY 4 OZ OINT TP SCH (12:30)
[2017-10-29] MEDS: POVIDONE-IODINE OINT 28.4 GM TUBE TP SCH (12:30)
[2017-10-29] MEDS: ZINC OXIDE 30 GM TUBE TP SCH ×2 (12:30→22:00)
[2017-10-29] MEDS: CLOTRIMAZOLE 1% 15 GM TUBE TP SCH ×4 (12:30→16:27)
[2017-10-29] MEDS: NEOMY SULF/BACITRAC ZN/POLY 15 GM TUBE TP SCH (12:30)
[2017-10-29] MEDS: DAKINS QUARTER STRENGTH (0.125%) 480 ML BOTTLE TOP SCH ×2 (12:30→22:00)
[2017-10-29] MEDS: PROSOURCE / PROSTAT (PYXIS) 30 ML UDC GT SCH (21:42)
[2017-10-29] MEDS: ZINC SULFATE 220 MG CAPSULE PO SCH (21:42)
[2017-10-29] MEDS: CRANBERRY EXT/C/L. SPOROGENES 405 MG/TAB TABLET GT SCH (21:42)
[2017-10-29] MEDS: ATORVASTATIN 10 MG TABLET GT SCH (21:43)
[2017-10-29] MEDS: POLYETHYLENE GLYCOL 3350 17 GM POWD.PACK GT SCH (21:43)
[2017-10-29] MEDS: ENOXAPARIN SODIUM 40 MG/0.4 ML DISP.SYRIN SQ SCH (21:43)
[2017-10-30] MEDS: ALBUTEROL HALF STRENGTH 1.25 MG/3 ML VIAL.NEB NEB SCH ×4 (01:59→19:19)
[2017-10-30] MEDS: IPRATROPIUM NEB FS 0.5 MG/2.5 ML AMPUL.NEB NEB SCH ×4 (01:59→19:19)
[2017-10-30 08:42] VITALS: BP 119/65
--- NOTE | 2017-10-30 09:00 | NUR ---
RAVI spoke to Dr. Rome TERRAZAS and reminded him that resident still needs to go to their office but that the resident has been on the ventilator and will need an RT to accompany him. He stated that it is not urgent and can be done at any time. RAVI informed charge nurse who will ask Dr. Ugarte when he does his rounds.
[2017-10-30] MEDS: FAMOTIDINE (20 MG) 20 MG TABLET GT SCH ×2 (09:56→21:27)
[2017-10-30] MEDS: LACTOBACILLUS RHAMNOSUS GG 1 EACH CAP.SPRINK GT SCH ×3 (09:56→17:58)
[2017-10-30] MEDS: GABAPENTIN 300 MG CAPSULE GT SCH ×3 (09:56→17:58)
[2017-10-30] MEDS: BACLOFEN (10 MG) 10 MG TABLET GT SCH ×4 (09:56→21:27)
[2017-10-30] MEDS: CALCIUM CARBONATE 500 MG TAB.CHEW GT SCH ×3 (09:56→17:58)
[2017-10-30] MEDS: ESCITALOPRAM OXALATE (10 MG) 10 MG TABLET GT SCH (09:56)
[2017-10-30] MEDS: MULTIVIT, IRON, MIN NO. 8, FA 1 TAB GT SCH (09:56)
[2017-10-30] MEDS: CALCITRIOL 0.25 MCG CAPSULE PO SCH (09:56)
[2017-10-30] MEDS: ASCORBIC ACID 500 MG TABLET GT SCH ×2 (09:56→17:58)
[2017-10-30] MEDS: METHADONE HCL 10 MG TABLET GT SCH (09:56)
[2017-10-30] MEDS: POVIDONE-IODINE OINT 28.4 GM TUBE TP SCH (12:30)
[2017-10-30] MEDS: HYDROCODONE/APAP 5/325MG 1 EACH TABLET PO SCH ×2 (13:30→21:57)
[2017-10-30] MEDS: MINERAL OIL/PETROL OINT 396 GM JAR TP SCH ×2 (14:30→21:58)
[2017-10-30] MEDS: Z GUARD REMEDY 4 OZ OINT TP SCH (14:30)
[2017-10-30] MEDS: HYDROGEN PEROXIDE 480 ML BOTTLE TP SCH ×2 (14:30→21:58)
[2017-10-30] MEDS: CLOTRIMAZOLE 1% 15 GM TUBE TP SCH ×4 (14:30→17:00)
[2017-10-30] MEDS: ZINC OXIDE 30 GM TUBE TP SCH ×2 (14:30→21:58)
[2017-10-30] MEDS: NEOMY SULF/BACITRAC ZN/POLY 15 GM TUBE TP SCH (14:30)
[2017-10-30] MEDS: DAKINS QUARTER STRENGTH (0.125%) 480 ML BOTTLE TOP SCH ×2 (14:30→21:58)
--- NOTE | 2017-10-30 19:19 | NUR ---
seen and examined by CARLI GOLDSTEIN,ordered CBC in am.New orders noted and carried out.
[2017-10-30 20:00] VITALS: BP 100/60
[2017-10-30] MEDS: CRANBERRY EXT/C/L. SPOROGENES 405 MG/TAB TABLET GT SCH (21:27)
[2017-10-30] MEDS: PROSOURCE / PROSTAT (PYXIS) 30 ML UDC GT SCH (21:56)
[2017-10-30] MEDS: ENOXAPARIN SODIUM 40 MG/0.4 ML DISP.SYRIN SQ SCH (21:57)
[2017-10-30] MEDS: ZINC SULFATE 220 MG CAPSULE PO SCH (21:57)
[2017-10-30] MEDS: POLYETHYLENE GLYCOL 3350 17 GM POWD.PACK GT SCH (21:58)
[2017-10-30] MEDS: ATORVASTATIN 10 MG TABLET GT SCH (21:58)
[2017-10-31] MEDS: IPRATROPIUM NEB FS 0.5 MG/2.5 ML AMPUL.NEB NEB SCH ×4 (01:07→19:09)
[2017-10-31] MEDS: ALBUTEROL HALF STRENGTH 1.25 MG/3 ML VIAL.NEB NEB SCH ×4 (01:07→19:09)
--- NOTE | 2017-10-31 01:08 | NUR ---
PT JAY BARRETT'D ON MECHANICAL VENT WITH CHARTED SETTINGS. TX GIVEN AND NO ADVERSE REACTION NOTED. SX DONE. PT TRACH PATENT AND SECURE. AMBU BAG AT BEDSIDE. VENT PLUGGED INTO RED OUTLET. ALARMS ARE ON AND AUDIBLE. WILL CONTINUE TO MONITOR. Addendum: 10/31/17 at 0109 by JOSÉ LUIS HARMAN RT Amended: Links added.
[2017-10-31 07:02] LABS: BASOPHILS % (AUTO) 0.4 % (0.0-2.0); EOSINOPHILS % (AUTO) 3.6 % (0.0-6.0); HEMATOCRIT 25 % (39-51); HEMOGLOBIN 7.6 g/dL (13.5-17.5); LYMPHOCYTES # (AUTO) 1.9 /CMM (0.8-4.8); LYMPHOCYTES % (AUTO) 20.6 % (20.0-44.0); MEAN CORPUSCULAR HGB CONC 30 g/dl (31.0-36.0); MEAN CORPUSCULAR VOLUME 81 fL (80-96); MONOCYTES # (AUTO) 0.8 /CMM (0.1-1.30); MONOCYTES % (AUTO) 8.8 % (2.0-12.0); NEUTROPHILS # (AUTO) 6.2 /CMM (1.8-8.9); NEUTROPHILS % (AUTO) 66.6 % (43.0-81.0); RDW COEFFICIENT OF VARIATION 21.4 (11.5-15.0); RED BLOOD CELL COUNT(AUTO) 3.09 MIL/uL (4.5-6.0); WHITE BLOOD COUNT (AUTO) 9.4 K/uL (4.3-11.0)
[2017-10-31 07:16] LABS: PLATELET COUNT (AUTO) 520 /CMM (150-450)
[2017-10-31 08:38] VITALS: BP 125/79
[2017-10-31] MEDS: ZINC OXIDE 30 GM TUBE TP SCH ×2 (09:00→21:16)
[2017-10-31] MEDS: DAKINS QUARTER STRENGTH (0.125%) 480 ML BOTTLE TOP SCH ×2 (09:00→21:16)
[2017-10-31] MEDS: HYDROGEN PEROXIDE 480 ML BOTTLE TP SCH ×2 (09:00→21:16)
[2017-10-31] MEDS: Z GUARD REMEDY 4 OZ OINT TP SCH (09:00)
[2017-10-31] MEDS: MINERAL OIL/PETROL OINT 396 GM JAR TP SCH ×2 (09:00→21:16)
[2017-10-31] MEDS: NEOMY SULF/BACITRAC ZN/POLY 15 GM TUBE TP SCH (09:00)
[2017-10-31] MEDS: CLOTRIMAZOLE 1% 15 GM TUBE TP SCH ×4 (09:00→17:00)
[2017-10-31] MEDS: ESCITALOPRAM OXALATE (10 MG) 10 MG TABLET GT SCH (09:11)
[2017-10-31] MEDS: LACTOBACILLUS RHAMNOSUS GG 1 EACH CAP.SPRINK GT SCH ×3 (09:11→17:00)
[2017-10-31] MEDS: BACLOFEN (10 MG) 10 MG TABLET GT SCH ×4 (09:12→21:15)
[2017-10-31] MEDS: GABAPENTIN 300 MG CAPSULE GT SCH ×3 (09:13→17:00)
[2017-10-31] MEDS: METHADONE HCL 10 MG TABLET GT SCH (09:13)
[2017-10-31] MEDS: ASCORBIC ACID 500 MG TABLET GT SCH ×2 (09:14→17:00)
[2017-10-31] MEDS: MULTIVIT, IRON, MIN NO. 8, FA 1 TAB GT SCH (09:14)
[2017-10-31] MEDS: FAMOTIDINE (20 MG) 20 MG TABLET GT SCH ×2 (09:14→21:15)
[2017-10-31] MEDS: CALCIUM CARBONATE 500 MG TAB.CHEW GT SCH ×3 (09:14→17:00)
[2017-10-31] MEDS: HYDROCODONE/APAP 5/325MG 1 EACH TABLET PO SCH ×2 (09:15→21:15)
[2017-10-31] MEDS: CALCITRIOL 0.25 MCG CAPSULE PO SCH (09:15)
[2017-10-31] MEDS: POVIDONE-IODINE OINT 28.4 GM TUBE TP SCH ×2 (12:00→14:54)
[2017-10-31 19:32] VITALS: BP 100/56
[2017-10-31] MEDS: PROSOURCE / PROSTAT (PYXIS) 30 ML UDC GT SCH (21:15)
[2017-10-31] MEDS: ENOXAPARIN SODIUM 40 MG/0.4 ML DISP.SYRIN SQ SCH (21:15)
[2017-10-31] MEDS: CRANBERRY EXT/C/L. SPOROGENES 405 MG/TAB TABLET GT SCH (21:15)
[2017-10-31] MEDS: ZINC SULFATE 220 MG CAPSULE PO SCH (21:15)
[2017-10-31] MEDS: POLYETHYLENE GLYCOL 3350 17 GM POWD.PACK GT SCH (21:16)
[2017-10-31] MEDS: ATORVASTATIN 10 MG TABLET GT SCH (21:16)
[2017-11-01] MEDS: ALBUTEROL HALF STRENGTH 1.25 MG/3 ML VIAL.NEB NEB SCH ×4 (02:15→19:46)
[2017-11-01] MEDS: IPRATROPIUM NEB FS 0.5 MG/2.5 ML AMPUL.NEB NEB SCH ×4 (02:15→19:46)
--- NOTE | 2017-11-01 02:26 | NUR ---
PT REC'D TRACHED ON [facility] VENT ON SIMV MODE. NO RESP DISTRESS OR SOB NOTED. SX'D FOR MOD AMT OF THICK YELLOW SECRETIONS. TRACH IS INTACT AND PATENT. PT STABLE AT THIS TIME. ALARMS ARE SET AND AUDIBLE. VENT PLUGGED INTO RED OUTLET. AMBU BAG BEDSIDE. WILL CONTINUE TO MONITOR. Addendum: 11/01/17 at 0226 by JOSÉ LUIS HARMAN RT Amended: Links added.
[2017-11-01 07:55] VITALS: BP 128/84
--- NOTE | 2017-11-01 08:33 | NUR ---
RT PT RECEIVED WITH A GigawattLEY 8 TRACH ON THE VENT WITH NOTED SETTINGS. PT IS AWAKE AND ALERT. VENT ALARMS ARE SET AND AUDIBLE WITH BVM BY BEDSIDE. TOOL DISPATCHER CUFF PRESSURE NOTED. VENT IS PLUGGED INTO RED OUTLET. PT SX'D MODERATE THICK YELLOW SECRETIONS. HHN TX GIVEN INLINE WITH NO ADVERSE REACTIONS. NO RESPIRATORY DISTRESS NOTED AT THIS TIME, WILL CONTINUE TO MONITOR. Addendum: 11/01/17 at 0917 by ESPERANZA HOOPER RT Amended: Links added.
[2017-11-01] MEDS: LACTOBACILLUS RHAMNOSUS GG 1 EACH CAP.SPRINK GT SCH ×3 (09:49→17:40)
[2017-11-01] MEDS: ESCITALOPRAM OXALATE (10 MG) 10 MG TABLET GT SCH (09:49)
[2017-11-01] MEDS: BACLOFEN (10 MG) 10 MG TABLET GT SCH ×4 (09:49→21:52)
[2017-11-01] MEDS: CALCIUM CARBONATE 500 MG TAB.CHEW GT SCH ×3 (09:50→17:40)
[2017-11-01] MEDS: CALCITRIOL 0.25 MCG CAPSULE PO SCH (09:50)
[2017-11-01] MEDS: ASCORBIC ACID 500 MG TABLET GT SCH ×2 (09:50→17:40)
[2017-11-01] MEDS: MULTIVIT, IRON, MIN NO. 8, FA 1 TAB GT SCH (09:50)
[2017-11-01] MEDS: FAMOTIDINE (20 MG) 20 MG TABLET GT SCH ×2 (09:50→21:52)
[2017-11-01] MEDS: METHADONE HCL 10 MG TABLET GT SCH (09:50)
[2017-11-01] MEDS: HYDROCODONE/APAP 5/325MG 1 EACH TABLET PO SCH ×2 (09:50→21:54)
[2017-11-01] MEDS: DAKINS QUARTER STRENGTH (0.125%) 480 ML BOTTLE TOP SCH ×2 (09:50→21:52)
[2017-11-01] MEDS: MINERAL OIL/PETROL OINT 396 GM JAR TP SCH ×2 (09:50→21:52)
[2017-11-01] MEDS: GABAPENTIN 300 MG CAPSULE GT SCH ×3 (09:50→17:40)
[2017-11-01] MEDS: HYDROGEN PEROXIDE 480 ML BOTTLE TP SCH ×2 (09:51→21:52)
[2017-11-01] MEDS: ZINC OXIDE 30 GM TUBE TP SCH ×2 (09:51→21:53)
[2017-11-01] MEDS: CLOTRIMAZOLE 1% 15 GM TUBE TP SCH ×2 (09:51)
[2017-11-01] MEDS: Z GUARD REMEDY 4 OZ OINT TP SCH (09:51)
[2017-11-01] MEDS: NEOMY SULF/BACITRAC ZN/POLY 15 GM TUBE TP SCH (09:51)
[2017-11-01] MEDS: POVIDONE-IODINE OINT 28.4 GM TUBE TP SCH (09:51)
[2017-11-01 19:35] VITALS: BP 118/67
--- NOTE | 2017-11-01 19:40 | NUR ---
Pt temp 101,HR 90,BP 118/67,O2 sats 98%,patient looks so sleepy and weak ,per day nurse pt refused to eat dinner.Tylenol and cooling measures provided.Paged Dr Curiel awaiting for repply.Will continue to monitor.
[2017-11-01] MEDS: ACETAMINOPHEN 650 MG/20 ML UDC- FOR SA PATIENTS ONLY GT PRN (19:57)
--- NOTE | 2017-11-01 19:59 | NUR ---
PATIENT RECEIVED ON VENT SUPPORT WITH SETTINGS OF SIMV 8, 400 VT, 30%, PS 15, +5. SUCTIONED WITH MINIMAL, THIN, YELLOW-CREAM SECRETIONS. GIVEN IN-LINE TREATMENTS WITH NO ADVERSE REACTIONS. AMBU BAG AT BEDSIDE. VENT AND PULSE OXIMETER ALARMS AUDIBLE AND VISIBLE. VENT PLUGGED IN RED OUTLET. Addendum: 11/01/17 at 2000 by ROLY BECERRIL RT Amended: Links added.
--- NOTE | 2017-11-01 20:40 | NUR ---
Notified Diana ID regarding pt fever and urine is cloudy with sediments.New orders of Blood culture x2,Urine culture from [facility] and nephrostomy tube,CBC,BMP and CXR in AM.Start Merrem 500mg IV q 8hrs for fever,Vancomycin pharmacy to dose.Vilma sister in law updated with pt condition and new orders.Will carry out and will continue to monitor.
[2017-11-01] MEDS ORDERED: MEROPENEM 1 G in IV NS 0.9% 100 ML IV SCH (21:00)
--- NOTE | 2017-11-01 21:45 | NUR ---
Spoke to [facility] pharmacist to give Vancomycin 750mg IV q 12 hrs to start at midnight,1st dose to get from e kit.Vanco trough on 11/03/17 before 1200 noon dose with BUN and Crea.
[2017-11-01] MEDS: ENOXAPARIN SODIUM 40 MG/0.4 ML DISP.SYRIN SQ SCH (21:52)
[2017-11-01] MEDS: ZINC SULFATE 220 MG CAPSULE PO SCH (21:52)
[2017-11-01] MEDS: PROSOURCE / PROSTAT (PYXIS) 30 ML UDC GT SCH (21:52)
[2017-11-01] MEDS: CRANBERRY EXT/C/L. SPOROGENES 405 MG/TAB TABLET GT SCH (21:52)
[2017-11-01] MEDS: ATORVASTATIN 10 MG TABLET GT SCH (21:53)
[2017-11-01] MEDS: POLYETHYLENE GLYCOL 3350 17 GM POWD.PACK GT SCH (21:53)
[2017-11-01] MEDS: NS 0.9% IV SCH (22:00)
[2017-11-01] MEDS: MEROPENEM IV SCH (22:00)
[2017-11-02] MEDS: VANCOMYCIN 0.75 GM in IV NS 0.9% 250 ML IV SCH ×2 (00:08→11:22)
[2017-11-02] MEDS: IPRATROPIUM NEB FS 0.5 MG/2.5 ML AMPUL.NEB NEB SCH ×4 (02:05→19:49)
[2017-11-02] MEDS: ALBUTEROL HALF STRENGTH 1.25 MG/3 ML VIAL.NEB NEB SCH ×4 (02:05→19:49)
[2017-11-02] MEDS: MEROPENEM IV SCH ×3 (05:30→21:05)
[2017-11-02] MEDS: NS 0.9% IV SCH ×3 (05:30→21:05)
[2017-11-02 07:54] VITALS: BP 145/83
[2017-11-02 07:55] LABS: BASOPHILS # (AUTO) 0.1 /CMM (0.0-0.2); BASOPHILS % (AUTO) 1.3 % (0.0-2.0); HEMATOCRIT 27 % (39-51); HEMOGLOBIN 7.9 g/dL (13.5-17.5); LYMPHOCYTES # (AUTO) 1.5 /CMM (0.8-4.8); LYMPHOCYTES % (AUTO) 15.2 % (20.0-44.0); MEAN CORPUSCULAR HGB CONC 30 g/dl (31.0-36.0); MEAN CORPUSCULAR VOLUME 80 fL (80-96); MONOCYTES % (AUTO) 9.9 % (2.0-12.0); NEUTROPHILS % (AUTO) 71.6 % (43.0-81.0); PLATELET COUNT (AUTO) 552 /CMM (150-450); RDW COEFFICIENT OF VARIATION 21.1 (11.5-15.0); RED BLOOD CELL COUNT(AUTO) 3.34 MIL/uL (4.5-6.0); WHITE BLOOD COUNT (AUTO) 9.8 K/uL (4.3-11.0)
[2017-11-02 08:00] LABS: CREATININE 0.8 mg/dL (0.6-1.3); POTASSIUM 4.6 mmol/L (3.5-5.1)
[2017-11-02] MEDS: FAMOTIDINE (20 MG) 20 MG TABLET GT SCH ×3 (09:00→20:22)
[2017-11-02] MEDS: ESCITALOPRAM OXALATE (10 MG) 10 MG TABLET GT SCH (09:55)
[2017-11-02] MEDS: BACLOFEN (10 MG) 10 MG TABLET GT SCH ×4 (09:55→20:22)
[2017-11-02] MEDS: LACTOBACILLUS RHAMNOSUS GG 1 EACH CAP.SPRINK GT SCH ×3 (09:55→17:12)
[2017-11-02] MEDS: MULTIVIT, IRON, MIN NO. 8, FA 1 TAB GT SCH (09:56)
[2017-11-02] MEDS: ASCORBIC ACID 500 MG TABLET GT SCH ×2 (09:56→17:12)
[2017-11-02] MEDS: CALCIUM CARBONATE 500 MG TAB.CHEW GT SCH ×3 (09:56→17:12)
[2017-11-02] MEDS: GABAPENTIN 300 MG CAPSULE GT SCH ×3 (09:56→17:12)
[2017-11-02] MEDS: METHADONE HCL 10 MG TABLET GT SCH (09:56)
[2017-11-02] MEDS: CALCITRIOL 0.25 MCG CAPSULE PO SCH (09:57)
[2017-11-02] MEDS: HYDROCODONE/APAP 5/325MG 1 EACH TABLET PO SCH ×2 (09:57→20:22)
[2017-11-02] MEDS: CLOTRIMAZOLE 1% 15 GM TUBE TP SCH ×2 (10:57)
[2017-11-02] MEDS: NEOMY SULF/BACITRAC ZN/POLY 15 GM TUBE TP SCH (10:57)
[2017-11-02] MEDS: DAKINS QUARTER STRENGTH (0.125%) 480 ML BOTTLE TOP SCH ×2 (10:57→20:23)
[2017-11-02] MEDS: Z GUARD REMEDY 4 OZ OINT TP SCH (10:57)
[2017-11-02] MEDS: POVIDONE-IODINE OINT 28.4 GM TUBE TP SCH (10:57)
[2017-11-02] MEDS: MINERAL OIL/PETROL OINT 396 GM JAR TP SCH ×2 (10:57→20:23)
[2017-11-02] MEDS: HYDROGEN PEROXIDE 480 ML BOTTLE TP SCH ×2 (10:57→20:23)
[2017-11-02 19:30] VITALS: BP 107/67
--- NOTE | 2017-11-02 19:50 | NUR ---
RT NOTE PATIENT RECEIVED IN STABLE CONDITION. PATIENT IS TOLERATING CURRENT ORDERED VENT SETTINGS. NO SIGNS OF RESPIRATORY DISTRESS NOTED. TRACH IS PATENT, SECURE AND MIDLINE. ALARMS ARE SET AND AUDIBLE. MECHANICAL VENT IS PLUGGED INTO RED OUTLET. EMERGENCY EQUIPMENT IS AT PATIENTS BEDSIDE. WILL CONTINUE TO MONITOR. Addendum: 11/02/17 at 2021 by DEBBY LANDA RT Amended: Links added.
[2017-11-02] MEDS: PROSOURCE / PROSTAT (PYXIS) 30 ML UDC GT SCH (20:22)
[2017-11-02] MEDS: ZINC SULFATE 220 MG CAPSULE PO SCH (20:22)
[2017-11-02] MEDS: CRANBERRY EXT/C/L. SPOROGENES 405 MG/TAB TABLET GT SCH (20:22)
[2017-11-02] MEDS: ENOXAPARIN SODIUM 40 MG/0.4 ML DISP.SYRIN SQ SCH (20:23)
[2017-11-02] MEDS: POLYETHYLENE GLYCOL 3350 17 GM POWD.PACK GT SCH (21:11)
[2017-11-02] MEDS: ATORVASTATIN 10 MG TABLET GT SCH (21:11)
[2017-11-03] MEDS: IPRATROPIUM NEB FS 0.5 MG/2.5 ML AMPUL.NEB NEB SCH ×4 (01:31→19:27)
[2017-11-03] MEDS: ALBUTEROL HALF STRENGTH 1.25 MG/3 ML VIAL.NEB NEB SCH ×4 (01:31→19:27)
[2017-11-03] MEDS: MEROPENEM IV SCH ×3 (05:00→21:38)
[2017-11-03] MEDS: NS 0.9% IV SCH ×3 (05:00→21:38)
[2017-11-03 07:53] VITALS: BP 140/86
--- NOTE | 2017-11-03 08:01 | NUR ---
PT REC'D TRACHED ON [facility] VENT ON SETTINGS CHARTED. NO RESP DISTRESS OR SOB NOTED. SX'D FOR THICK MOD AMT OF YELOW SECRETIONS. TRACH SECURED AN PATENT. PT STABLE AT THIS TIME. WILL CONTINUE TO MONITOR. Addendum: 11/03/17 at 1727 by CAITLIN SOTO RT Amended: Links added.
[2017-11-03] MEDS: POVIDONE-IODINE OINT 28.4 GM TUBE TP SCH (09:00)
[2017-11-03] MEDS: CLOTRIMAZOLE 1% 15 GM TUBE TP SCH ×2 (09:00)
[2017-11-03] MEDS: DAKINS QUARTER STRENGTH (0.125%) 480 ML BOTTLE TOP SCH ×2 (09:00→21:38)
[2017-11-03] MEDS: HYDROGEN PEROXIDE 480 ML BOTTLE TP SCH ×2 (09:00→21:38)
[2017-11-03] MEDS: MINERAL OIL/PETROL OINT 396 GM JAR TP SCH ×2 (09:00→21:38)
[2017-11-03] MEDS: Z GUARD REMEDY 4 OZ OINT TP SCH (09:00)
[2017-11-03] MEDS: METHADONE HCL 10 MG TABLET GT SCH (09:07)
[2017-11-03] MEDS: ESCITALOPRAM OXALATE (10 MG) 10 MG TABLET GT SCH (09:07)
[2017-11-03] MEDS: BACLOFEN (10 MG) 10 MG TABLET GT SCH ×4 (09:07→21:37)
[2017-11-03] MEDS: LACTOBACILLUS RHAMNOSUS GG 1 EACH CAP.SPRINK GT SCH ×3 (09:07→17:24)
[2017-11-03] MEDS: GABAPENTIN 300 MG CAPSULE GT SCH ×3 (09:08→17:25)
[2017-11-03] MEDS: MULTIVIT, IRON, MIN NO. 8, FA 1 TAB GT SCH (09:09)
[2017-11-03] MEDS: FAMOTIDINE (20 MG) 20 MG TABLET GT SCH ×2 (09:09→21:37)
[2017-11-03] MEDS: ASCORBIC ACID 500 MG TABLET GT SCH ×2 (09:10→17:25)
[2017-11-03] MEDS: CALCIUM CARBONATE 500 MG TAB.CHEW GT SCH ×3 (09:10→17:25)
[2017-11-03] MEDS: HYDROCODONE/APAP 5/325MG 1 EACH TABLET PO SCH ×2 (09:11→21:40)
[2017-11-03] MEDS: CALCITRIOL 0.25 MCG CAPSULE PO SCH (09:12)
[2017-11-03 12:12] LABS: CREATININE 0.9 mg/dL (0.6-1.3)
[2017-11-03] MEDS: VANCOMYCIN 0.75 GM in IV NS 0.9% 250 ML IV SCH ×4 (12:14→23:46)
--- NOTE | 2017-11-03 14:00 | NUR ---
INTERDISCIPLINARY PLAN OF CARE CONFERENCE was held today. Resident's [id number] attended the meeting. Dr. Ugarte and the interdisciplinary team discussed the current plan of care in detail. Current orders as well as treatments and medications were reviewed. Resident remain on ventilator currently on SIMV mode. Dr. Ugarte ordered to plce him on cool aerosol starting Monday from *am to 7 PM and do ABG 2 hours later, and keep SIMV setting at night. RT informed. Orders carried out.
--- NOTE | 2017-11-03 14:08 | NUR ---
SW communicated to IDT team that resident is in need of going to the dentist's office. Per Dr. Ugarte, new order was given to start resident on cool aerosol during the day (please see charge nurse's notes) however still needs an RT to accompany him to the appointment. SW will communicate with RT director regarding the need for an RT to see if they are able to accommodate and provide assistance to resident during his appointment or if an alternative arrangement needs to be made. SW to follow up
[2017-11-03] MEDS: PROSOURCE / PROSTAT (PYXIS) 30 ML UDC GT SCH (21:37)
[2017-11-03] MEDS: ATORVASTATIN 10 MG TABLET GT SCH (21:38)
[2017-11-03] MEDS: POLYETHYLENE GLYCOL 3350 17 GM POWD.PACK GT SCH (21:38)
[2017-11-03] MEDS: ZINC SULFATE 220 MG CAPSULE PO SCH (21:38)
[2017-11-03] MEDS: CRANBERRY EXT/C/L. SPOROGENES 405 MG/TAB TABLET GT SCH (21:40)
[2017-11-03] MEDS: ENOXAPARIN SODIUM 40 MG/0.4 ML DISP.SYRIN SQ SCH (21:41)
[2017-11-04] MEDS: IPRATROPIUM NEB FS 0.5 MG/2.5 ML AMPUL.NEB NEB SCH ×4 (01:10→19:38)
[2017-11-04] MEDS: ALBUTEROL HALF STRENGTH 1.25 MG/3 ML VIAL.NEB NEB SCH ×4 (01:10→19:38)
[2017-11-04] MEDS: NS 0.9% IV SCH ×3 (05:10→21:00)
[2017-11-04] MEDS: MEROPENEM IV SCH ×3 (05:10→21:00)
--- NOTE | 2017-11-04 06:03 | NUR ---
PATIENT RECEIVED ON MECHANICAL VENTILATION. PT SX'D SMALL CLEAR SECRETIONS. BREATHING TX GIVEN, NO ADVERSE REACTIONS NOTED. VENT PLUGGED INTO RED OUTLET. AMBU BAG IS AT BEDSIDE ALONG WITH SPARE TRACH. ALARMS ARE ON AND AUDIBLE. NO DISTRESS NOTED. WILL CONT TO MONITOR PT.
[2017-11-04 09:03] VITALS: BP 123/70
[2017-11-04] MEDS: ESCITALOPRAM OXALATE (10 MG) 10 MG TABLET GT SCH (09:29)
[2017-11-04] MEDS: BACLOFEN (10 MG) 10 MG TABLET GT SCH ×4 (09:29→21:00)
[2017-11-04] MEDS: GABAPENTIN 300 MG CAPSULE GT SCH ×3 (09:30→16:38)
[2017-11-04] MEDS: FAMOTIDINE (20 MG) 20 MG TABLET GT SCH ×2 (09:30→21:00)
[2017-11-04] MEDS: CALCIUM CARBONATE 500 MG TAB.CHEW GT SCH ×3 (09:31→16:38)
[2017-11-04] MEDS: ASCORBIC ACID 500 MG TABLET GT SCH ×2 (09:31→16:38)
[2017-11-04] MEDS: DAKINS QUARTER STRENGTH (0.125%) 480 ML BOTTLE TOP SCH ×2 (09:32→21:00)
[2017-11-04] MEDS: MINERAL OIL/PETROL OINT 396 GM JAR TP SCH ×2 (09:32→21:00)
[2017-11-04] MEDS: POVIDONE-IODINE OINT 28.4 GM TUBE TP SCH (09:32)
[2017-11-04] MEDS: Z GUARD REMEDY 4 OZ OINT TP SCH (09:33)
[2017-11-04] MEDS: CLOTRIMAZOLE 1% 15 GM TUBE TP SCH (09:33)
[2017-11-04] MEDS: HYDROGEN PEROXIDE 480 ML BOTTLE TP SCH ×2 (09:33→21:00)
[2017-11-04] MEDS: MULTIVIT, IRON, MIN NO. 8, FA 1 TAB GT SCH (09:38)
[2017-11-04] MEDS: CALCITRIOL 0.25 MCG CAPSULE PO SCH (09:38)
[2017-11-04] MEDS: METHADONE HCL 10 MG TABLET GT SCH (09:38)
[2017-11-04] MEDS: HYDROCODONE/APAP 5/325MG 1 EACH TABLET PO SCH ×2 (09:39→21:00)
[2017-11-04] MEDS: LACTOBACILLUS RHAMNOSUS GG 1 EACH CAP.SPRINK GT SCH ×3 (09:42→16:39)
[2017-11-04] MEDS: VANCOMYCIN 0.75 GM in IV NS 0.9% 250 ML IV SCH ×2 (12:03→23:34)
[2017-11-04 19:39] VITALS: BP 109/70
--- NOTE | 2017-11-04 20:15 | NUR ---
PT RCVD TRACH'D ON MECHANICAL VENT WITH CHARTED SETTINGS. PT TOLERATING SETTINGS WELL AT THIS TIME. TX GIVEN AND NO ADVERSE REACTION NOTED. SX DONE. PT TRACH PATENT AND SECURE. AMBU BAG AT BEDSIDE. VENT PLUGGED INTO RED OUTLET. ALARMS ARE ON AND AUDIBLE. WILL CONTINUE TO MONITOR. Addendum: 11/04/17 at 2015 by LUCIANA TRIMBLE RT Amended: Links added.
[2017-11-04] MEDS: ENOXAPARIN SODIUM 40 MG/0.4 ML DISP.SYRIN SQ SCH (21:00)
[2017-11-04] MEDS: ZINC SULFATE 220 MG CAPSULE PO SCH (21:00)
[2017-11-04] MEDS: PROSOURCE / PROSTAT (PYXIS) 30 ML UDC GT SCH (21:00)
[2017-11-04] MEDS: ATORVASTATIN 10 MG TABLET GT SCH (22:09)
[2017-11-04] MEDS: POLYETHYLENE GLYCOL 3350 17 GM POWD.PACK GT SCH (22:09)
[2017-11-04] MEDS: HYDROCODONE/APAP 5/325MG 1 EACH TABLET GT PRN (23:55)
[2017-11-05] MEDS: ALBUTEROL HALF STRENGTH 1.25 MG/3 ML VIAL.NEB NEB SCH ×4 (01:37→19:29)
[2017-11-05] MEDS: IPRATROPIUM NEB FS 0.5 MG/2.5 ML AMPUL.NEB NEB SCH ×4 (01:37→19:29)
[2017-11-05] MEDS: NS 0.9% IV SCH ×3 (06:00→21:00)
[2017-11-05] MEDS: MEROPENEM IV SCH ×3 (06:00→21:00)
[2017-11-05 08:06] VITALS: BP 124/71
--- NOTE | 2017-11-05 08:07 | NUR ---
PATIENT RECEIVED ON VENT SUPPORT WITH SETTINGS OF SIMV 8, 400 VT, 30% PS 15, +5, REMAINED ALERT AND STABLE. SUCTIONED FOR MINIMAL, THIN, YELLOW-WHITE SECRETIONS. GIVEN IN-LINE TREATMENTS WITH NO ADVERSE REACTIONS. AMBU BAG AT BEDSIDE. VENT PLUGGED IN RED OUTLET AND ALARM AUDIBLE AND VISIBLE. Addendum: 11/05/17 at 0808 by ROLY BECERRIL RT Amended: Links added.
[2017-11-05] MEDS: BACLOFEN (10 MG) 10 MG TABLET GT SCH ×4 (09:55→21:47)
[2017-11-05] MEDS: LACTOBACILLUS RHAMNOSUS GG 1 EACH CAP.SPRINK GT SCH ×3 (09:55→16:45)
[2017-11-05] MEDS: ESCITALOPRAM OXALATE (10 MG) 10 MG TABLET GT SCH (09:55)
[2017-11-05] MEDS: ASCORBIC ACID 500 MG TABLET GT SCH ×2 (09:56→16:45)
[2017-11-05] MEDS: CALCITRIOL 0.25 MCG CAPSULE PO SCH (09:56)
[2017-11-05] MEDS: MINERAL OIL/PETROL OINT 396 GM JAR TP SCH ×2 (09:56→21:48)
[2017-11-05] MEDS: FAMOTIDINE (20 MG) 20 MG TABLET GT SCH ×2 (09:56→21:47)
[2017-11-05] MEDS: MULTIVIT, IRON, MIN NO. 8, FA 1 TAB GT SCH (09:56)
[2017-11-05] MEDS: POVIDONE-IODINE OINT 28.4 GM TUBE TP SCH (09:56)
[2017-11-05] MEDS: GABAPENTIN 300 MG CAPSULE GT SCH ×3 (09:56→16:45)
[2017-11-05] MEDS: CALCIUM CARBONATE 500 MG TAB.CHEW GT SCH ×3 (09:56→16:45)
[2017-11-05] MEDS: HYDROGEN PEROXIDE 480 ML BOTTLE TP SCH ×2 (09:56→21:48)
[2017-11-05] MEDS: HYDROCODONE/APAP 5/325MG 1 EACH TABLET PO SCH ×2 (09:56→21:49)
[2017-11-05] MEDS: METHADONE HCL 10 MG TABLET GT SCH (09:56)
[2017-11-05] MEDS: DAKINS QUARTER STRENGTH (0.125%) 480 ML BOTTLE TOP SCH ×2 (09:56→21:48)
[2017-11-05] MEDS: Z GUARD REMEDY 4 OZ OINT TP SCH (09:57)
[2017-11-05] MEDS: CLOTRIMAZOLE 1% 15 GM TUBE TP SCH (09:57)
[2017-11-05] MEDS: VANCOMYCIN 0.75 GM in IV NS 0.9% 250 ML IV SCH (12:00)
[2017-11-05 20:01] VITALS: BP 131/70
--- NOTE | 2017-11-05 20:42 | NUR ---
PATIENT WAS RECEIVED ON CONTINUOUS VENT SUPPORT ON NOTED VENT SETTINGS.B/S RHONCHI SUCTIONED WITH A MODERATE AMOUNT OF THIN PALE YELLOWISH SECRETIONS.HHN TREATMENT GIVEN AND TOLERATED WELL. AMBUBAG AND SPARE TRACH AT BEDSIDE.VENT PLUGGED INTO RED OUTLET.NO RESPIRATORY DISTRESS NOTED AT THIS TIME. WILL CONTINUE TO MONITOR. Addendum: 11/05/17 at 2042 by ROM ARAIZA RT Amended: Links added.
[2017-11-05] MEDS: PROSOURCE / PROSTAT (PYXIS) 30 ML UDC GT SCH (21:47)
[2017-11-05] MEDS: ZINC SULFATE 220 MG CAPSULE PO SCH (21:47)
[2017-11-05] MEDS: POLYETHYLENE GLYCOL 3350 17 GM POWD.PACK GT SCH (21:48)
[2017-11-05] MEDS: ATORVASTATIN 10 MG TABLET GT SCH (21:48)
[2017-11-05] MEDS: ENOXAPARIN SODIUM 40 MG/0.4 ML DISP.SYRIN SQ SCH (21:48)
[2017-11-06] MEDS: VANCOMYCIN 0.75 GM in IV NS 0.9% 250 ML IV SCH ×2 (00:03→12:00)
[2017-11-06] MEDS: IPRATROPIUM NEB FS 0.5 MG/2.5 ML AMPUL.NEB NEB SCH ×4 (01:35→19:40)
[2017-11-06] MEDS: ALBUTEROL HALF STRENGTH 1.25 MG/3 ML VIAL.NEB NEB SCH ×4 (01:35→19:40)
[2017-11-06] MEDS: NS 0.9% IV SCH ×3 (05:00→21:00)
[2017-11-06] MEDS: MEROPENEM IV SCH ×3 (05:00→21:00)
[2017-11-06 07:50] VITALS: BP 135/82
[2017-11-06] MEDS: DAKINS QUARTER STRENGTH (0.125%) 480 ML BOTTLE TOP SCH (09:00)
[2017-11-06] MEDS: Z GUARD REMEDY 4 OZ OINT TP SCH (09:00)
[2017-11-06] MEDS: POVIDONE-IODINE OINT 28.4 GM TUBE TP SCH (09:00)
[2017-11-06] MEDS: HYDROGEN PEROXIDE 480 ML BOTTLE TP SCH ×2 (09:00→21:16)
[2017-11-06] MEDS: MINERAL OIL/PETROL OINT 396 GM JAR TP SCH ×2 (09:00→21:16)
[2017-11-06] MEDS: CLOTRIMAZOLE 1% 15 GM TUBE TP SCH (09:00)
[2017-11-06] MEDS: ESCITALOPRAM OXALATE (10 MG) 10 MG TABLET GT SCH (09:46)
[2017-11-06] MEDS: GABAPENTIN 300 MG CAPSULE GT SCH ×3 (09:47→17:53)
[2017-11-06] MEDS: METHADONE HCL 10 MG TABLET GT SCH (09:47)
[2017-11-06] MEDS: BACLOFEN (10 MG) 10 MG TABLET GT SCH ×4 (09:47→21:16)
[2017-11-06] MEDS: CALCIUM CARBONATE 500 MG TAB.CHEW GT SCH ×3 (09:49→17:53)
[2017-11-06] MEDS: FAMOTIDINE (20 MG) 20 MG TABLET GT SCH ×2 (09:49→21:16)
[2017-11-06] MEDS: ASCORBIC ACID 500 MG TABLET GT SCH ×2 (09:49→17:53)
[2017-11-06] MEDS: MULTIVIT, IRON, MIN NO. 8, FA 1 TAB GT SCH (09:49)
[2017-11-06] MEDS: CALCITRIOL 0.25 MCG CAPSULE PO SCH (09:50)
[2017-11-06] MEDS: HYDROCODONE/APAP 5/325MG 1 EACH TABLET PO SCH ×2 (09:50→21:16)
[2017-11-06 10:02] LABS: ABG OXYGEN SATURATION 97.4 % (92.0-98.5); ABG PCO2 54.8 mmHg (35.0-45.0); ABG PH 7.407 (7.350-7.450); ABG PO2 104.1 mmHg (75.0-100.0); AaDO2 118.1 mmHg; COHb 0.3 % (0.5-1.5); MetHb 0.9 % (0.0-1.5); O2Hb 96.2 % (94.0-97.0); SITE, ABG Right Radial; VENT MODE, BG C/A 40%
--- NOTE | 2017-11-06 10:20 | NUR ---
Pt was placed by RT Macdonald on cool aerosol and ABG was done. Relayed ABG result to Dr Ugarte. Dr Ugarte said to keep pt on cool aerosol during the day and SIMV at night. Addendum: 11/06/17 at 1339 by WINIFRED GARCÍA RN Pt tolerating cool aerosol well. O2 sat 100%
[2017-11-06] MEDS: ACIDOPHILUS/BULGARICUS 1 EACH TAB.CHEW GT SCH ×2 (13:00→17:53)
[2017-11-06] MEDS ORDERED: ACETAMINOPHEN 325 MG TABLET ONE (18:59)
[2017-11-06 19:53] VITALS: BP 101/64
[2017-11-06] MEDS: ATORVASTATIN 10 MG TABLET GT SCH (21:16)
[2017-11-06] MEDS: PROSOURCE / PROSTAT (PYXIS) 30 ML UDC GT SCH (21:16)
[2017-11-06] MEDS: ZINC SULFATE 220 MG CAPSULE PO SCH (21:16)
[2017-11-06] MEDS: POLYETHYLENE GLYCOL 3350 17 GM POWD.PACK GT SCH (21:17)
[2017-11-06] MEDS: ENOXAPARIN SODIUM 40 MG/0.4 ML DISP.SYRIN SQ SCH (21:17)
[2017-11-07] MEDS: VANCOMYCIN 0.75 GM in IV NS 0.9% 250 ML IV SCH (00:35)
[2017-11-07] MEDS: ALBUTEROL HALF STRENGTH 1.25 MG/3 ML VIAL.NEB NEB SCH ×4 (00:51→19:32)
[2017-11-07] MEDS: IPRATROPIUM NEB FS 0.5 MG/2.5 ML AMPUL.NEB NEB SCH ×4 (00:51→19:32)
[2017-11-07] MEDS: NS 0.9% IV SCH ×3 (05:00→21:00)
[2017-11-07] MEDS: MEROPENEM IV SCH ×3 (05:00→21:00)
[2017-11-07 07:30] VITALS: BP 149/79
[2017-11-07 07:57] LABS: BASOPHILS % (AUTO) 0.5 % (0.0-2.0); EOSINOPHILS % (AUTO) 4.3 % (0.0-6.0); HEMATOCRIT 27 % (39-51); HEMOGLOBIN 8.4 g/dL (13.5-17.5); LYMPHOCYTES # (AUTO) 1.5 /CMM (0.8-4.8); LYMPHOCYTES % (AUTO) 17.4 % (20.0-44.0); MEAN CORPUSCULAR HGB CONC 31 g/dl (31.0-36.0); MEAN CORPUSCULAR VOLUME 79 fL (80-96); MONOCYTES # (AUTO) 0.6 /CMM (0.1-1.30); MONOCYTES % (AUTO) 6.7 % (2.0-12.0); NEUTROPHILS % (AUTO) 71.1 % (43.0-81.0); PLATELET COUNT (AUTO) 589 /CMM (150-450); RDW COEFFICIENT OF VARIATION 19.7 (11.5-15.0); WHITE BLOOD COUNT (AUTO) 8.5 K/uL (4.3-11.0)
[2017-11-07 08:08] LABS: CALCIUM, SERUM 9.4 mg/dL (8.5-10.1); CREATININE 0.7 mg/dL (0.6-1.3); POTASSIUM 4.4 mmol/L (3.5-5.1)
[2017-11-07] MEDS: CLOTRIMAZOLE 1% 15 GM TUBE TP SCH ×4 (09:00→22:00)
[2017-11-07] MEDS: POVIDONE-IODINE OINT 28.4 GM TUBE TP SCH (09:00)
[2017-11-07] MEDS: Z GUARD REMEDY 4 OZ OINT TP SCH ×3 (09:00→22:00)
[2017-11-07] MEDS: HYDROGEN PEROXIDE 480 ML BOTTLE TP SCH ×2 (09:00→22:00)
--- NOTE | 2017-11-07 09:29 | NUR ---
Late entry for 11/06/17 CHEMICAL LABORATORY TESTER Diana ordered to give Meropenem and Vancomycin for 5 more days.
[2017-11-07] MEDS: BACLOFEN (10 MG) 10 MG TABLET GT SCH ×4 (09:31→21:30)
[2017-11-07] MEDS: ESCITALOPRAM OXALATE (10 MG) 10 MG TABLET GT SCH (09:31)
[2017-11-07] MEDS: ACIDOPHILUS/BULGARICUS 1 EACH TAB.CHEW GT SCH ×3 (09:31→17:50)
[2017-11-07] MEDS: METHADONE HCL 10 MG TABLET GT SCH (09:32)
[2017-11-07] MEDS: CALCIUM CARBONATE 500 MG TAB.CHEW GT SCH ×3 (09:33→17:52)
[2017-11-07] MEDS: ASCORBIC ACID 500 MG TABLET GT SCH ×2 (09:33→17:52)
[2017-11-07] MEDS: FAMOTIDINE (20 MG) 20 MG TABLET GT SCH ×2 (09:33→21:30)
[2017-11-07] MEDS: GABAPENTIN 300 MG CAPSULE GT SCH ×3 (09:33→17:50)
[2017-11-07] MEDS: MULTIVIT, IRON, MIN NO. 8, FA 1 TAB GT SCH (09:34)
[2017-11-07] MEDS: MINERAL OIL/PETROL OINT 396 GM JAR TP SCH ×2 (09:34→22:00)
[2017-11-07] MEDS: CALCITRIOL 0.25 MCG CAPSULE PO SCH (09:34)
[2017-11-07] MEDS: HYDROCODONE/APAP 5/325MG 1 EACH TABLET PO SCH ×2 (09:45→21:30)
--- NOTE | 2017-11-07 11:42 | NUR ---
RAVI spoke to RT director Janiya who stated that an RT can accompany resident to his dental appt. RAVI spoke to Mysyossi at the office of Dr. Lopes and scheduled appointment for Wednesday November 29, 2017 at 11AM. Resident will need a cavity filling, deep cleaning, and possible x-rays. The total for that is $415.00 and if he needs an xray, it will be $40 extra (max is $455.00). RAVI informed RT director Janiya of appointment time and date. RAVI informed charge nurse. RAVI also informed lvoeqr-qo-aey Vilma and informed her that she can call for payment or they can mail her an invoice.
--- NOTE | 2017-11-07 13:00 | NUR ---
Seen by Dr. Ugarte. Notified him that pt desaturates to 87-88% while sleeping. Pt suctioned whenever he desaturates while sleeping and O2 sat improves to 98-99%. No new order.
--- NOTE | 2017-11-07 13:16 | NUR ---
Late entry for 11/06/17 Night charge nurse endorsed that pt has a small open area on the midback. Dr. Rafiq Diaz said it is MASD.
[2017-11-07 20:13] VITALS: BP 93/53
[2017-11-07] MEDS: PROSOURCE / PROSTAT (PYXIS) 30 ML UDC GT SCH (21:30)
[2017-11-07] MEDS: ZINC SULFATE 220 MG CAPSULE PO SCH (21:30)
[2017-11-07] MEDS: ATORVASTATIN 10 MG TABLET GT SCH (21:31)
[2017-11-07] MEDS: ENOXAPARIN SODIUM 40 MG/0.4 ML DISP.SYRIN SQ SCH (21:31)
[2017-11-07] MEDS: POLYETHYLENE GLYCOL 3350 17 GM POWD.PACK GT SCH (21:31)
[2017-11-07] MEDS: DAKINS QUARTER STRENGTH (0.125%) 480 ML BOTTLE TOP SCH ×3 (22:00)
[2017-11-07] MEDS: VANCOMYCIN 0.75 GM in IV D5W 250 ML IV SCH (23:28)
[2017-11-08] MEDS: ALBUTEROL HALF STRENGTH 1.25 MG/3 ML VIAL.NEB NEB SCH ×4 (01:32→19:51)
[2017-11-08] MEDS: IPRATROPIUM NEB FS 0.5 MG/2.5 ML AMPUL.NEB NEB SCH ×4 (01:32→19:51)
[2017-11-08] MEDS: NS 0.9% IV SCH ×3 (05:00→21:00)
[2017-11-08] MEDS: MEROPENEM IV SCH ×3 (05:00→21:00)
[2017-11-08 07:44] VITALS: BP 127/76
--- NOTE | 2017-11-08 08:10 | NUR ---
RT NOTE: LATE ENTRY-PATIENT RECEIVED ON MECHANICAL VENT AND CHANGED TO COOL AEROSOL PER MD ORDER. PATIENT TOLERATING WELL. SUCTIONED THICK FOURNIER SECRETIONS. WA00=896%. NURSE(RADHA) AWARE.
[2017-11-08] MEDS: MINERAL OIL/PETROL OINT 396 GM JAR TP SCH ×2 (09:00→22:05)
[2017-11-08] MEDS: CLOTRIMAZOLE 1% 15 GM TUBE TP SCH ×7 (09:00→22:05)
[2017-11-08] MEDS: Z GUARD REMEDY 4 OZ OINT TP SCH ×5 (09:00→22:05)
[2017-11-08] MEDS: DAKINS QUARTER STRENGTH (0.125%) 480 ML BOTTLE TOP SCH ×6 (09:00→22:05)
[2017-11-08] MEDS: HYDROGEN PEROXIDE 480 ML BOTTLE TP SCH ×2 (09:00→22:05)
[2017-11-08] MEDS: POVIDONE-IODINE OINT 28.4 GM TUBE TP SCH (09:00)
[2017-11-08] MEDS: BACLOFEN (10 MG) 10 MG TABLET GT SCH ×4 (09:42→21:32)
[2017-11-08] MEDS: FAMOTIDINE (20 MG) 20 MG TABLET GT SCH ×2 (09:42→21:32)
[2017-11-08] MEDS: GABAPENTIN 300 MG CAPSULE GT SCH ×3 (09:42→16:30)
[2017-11-08] MEDS: ESCITALOPRAM OXALATE (10 MG) 10 MG TABLET GT SCH (09:42)
[2017-11-08] MEDS: METHADONE HCL 10 MG TABLET GT SCH (09:44)
[2017-11-08] MEDS: CALCIUM CARBONATE 500 MG TAB.CHEW GT SCH ×3 (09:44→16:30)
[2017-11-08] MEDS: MULTIVIT, IRON, MIN NO. 8, FA 1 TAB GT SCH (09:44)
[2017-11-08] MEDS: ACIDOPHILUS/BULGARICUS 1 EACH TAB.CHEW GT SCH ×3 (09:44→16:30)
[2017-11-08] MEDS: ASCORBIC ACID 500 MG TABLET GT SCH ×2 (09:44→16:30)
[2017-11-08] MEDS: CALCITRIOL 0.25 MCG CAPSULE PO SCH (09:45)
[2017-11-08] MEDS: HYDROCODONE/APAP 5/325MG 1 EACH TABLET PO SCH ×2 (09:45→21:34)
[2017-11-08] MEDS ORDERED: FEE PK DOSING 1 MIN EA MC ONE ×2 (12:41→12:42)
--- NOTE | 2017-11-08 16:50 | NUR ---
Resident awake and verbally responsive. On cool aerosol, tolerating well. Assisted by staff during meals, no s/s o Continue on IV ATB f aspiration. Suctioned trach after each meal. Complain of tooth ache and would like to see dentist, according to [facility], the dentist has been notified. In the meantime, medicated him for pain and SECURITY CLERK brushed his teeth. Continue on IV ATB for bacterial infection, no adverse reaction. GEETA Ortiz awaiting for final result of urine culture. Followed-up with Microbiology but was told to call back in AM. [facility] laboratory is closed at this time. Endorsed.
[2017-11-08 19:50] VITALS: BP 103/59
--- NOTE | 2017-11-08 19:52 | NUR ---
RT NOTE: PLACED PT BACK ON VENT AT THIS TIME. TRACH IS PATENT AND SECURED. DETASSELING CREW SUPERVISOR DONE. ALARMS SET AND AUDIBLE. VENT PLUGGED IN TO RED OUTLET. AMBU BAG AT BED SIDE. Q6 BREATHING TX GIVEN PER MD ORDERS. NO RESP DISTRESS NOTED AT THIS TIME. WILL CONT TO MONITOR PT. Addendum: 11/08/17 at 2334 by SOBIA VILLA RT Amended: Links added.
[2017-11-08] MEDS: PROSOURCE / PROSTAT (PYXIS) 30 ML UDC GT SCH (21:32)
[2017-11-08] MEDS: ZINC SULFATE 220 MG CAPSULE PO SCH (21:34)
[2017-11-08] MEDS: ENOXAPARIN SODIUM 40 MG/0.4 ML DISP.SYRIN SQ SCH (21:35)
[2017-11-08] MEDS: ATORVASTATIN 10 MG TABLET GT SCH (21:36)
[2017-11-08] MEDS: POLYETHYLENE GLYCOL 3350 17 GM POWD.PACK GT SCH (21:36)
[2017-11-09] MEDS: VANCOMYCIN 0.75 GM in IV D5W 250 ML IV SCH (00:06)
[2017-11-09] MEDS: IPRATROPIUM NEB FS 0.5 MG/2.5 ML AMPUL.NEB NEB SCH ×4 (01:23→19:51)
[2017-11-09] MEDS: ALBUTEROL HALF STRENGTH 1.25 MG/3 ML VIAL.NEB NEB SCH ×4 (01:23→19:51)
[2017-11-09] MEDS: NS 0.9% IV SCH ×3 (05:16→21:00)
[2017-11-09] MEDS: MEROPENEM IV SCH ×3 (05:16→21:00)
--- NOTE | 2017-11-09 07:30 | NUR ---
RT RECEIVED PT TRACH ON VENT WITH NOTED SETTINGS. LONG CHAIN DYEING MACHINE OPERATOR DONE AND TRACH IS SECURE. VENT ALARMS CHECKED AND AUDIBLE. VENT PLUGGED IN RED OUTLET. AMBU BAG AND SPARE TRACH NOTED HOB. SX WITH MOD THK YELLOW SECRETIONS. PT ON CONTINUOUS PULSE OX. BREATHING TX GIVEN. NO SOB OR RESP DISTRESS NOTED. WILL CONTINUE TO MONITOR T/O SHIFT.
[2017-11-09 07:35] LABS: CALCIUM, SERUM 8.9 mg/dL (8.5-10.1); CREATININE 0.7 mg/dL (0.6-1.3); POTASSIUM 4.6 mmol/L (3.5-5.1)
[2017-11-09 08:00] VITALS: BP 122/63
--- NOTE | 2017-11-09 08:29 | NUR ---
RT PLACED PT ON CA PER MD ORDER. SPO2 & HR WITHIN NORMAL LIMITS. NO SOB OR RESP DISTRESS NOTED. WILL CONTINUE TO MONITOR T/O SHIFT.
[2017-11-09] MEDS: BACLOFEN (10 MG) 10 MG TABLET GT SCH ×4 (09:00→20:32)
[2017-11-09] MEDS: GABAPENTIN 300 MG CAPSULE GT SCH ×3 (09:00→16:40)
[2017-11-09] MEDS: CALCITRIOL 0.25 MCG CAPSULE PO SCH (09:00)
[2017-11-09] MEDS: ASCORBIC ACID 500 MG TABLET GT SCH ×2 (09:00→16:40)
[2017-11-09] MEDS: FAMOTIDINE (20 MG) 20 MG TABLET GT SCH ×2 (09:00→20:32)
[2017-11-09] MEDS: POVIDONE-IODINE OINT 28.4 GM TUBE TP SCH (09:00)
[2017-11-09] MEDS: ACIDOPHILUS/BULGARICUS 1 EACH TAB.CHEW GT SCH ×3 (09:00→16:40)
[2017-11-09] MEDS: MULTIVIT, IRON, MIN NO. 8, FA 1 TAB GT SCH (09:00)
[2017-11-09] MEDS: ESCITALOPRAM OXALATE (10 MG) 10 MG TABLET GT SCH (09:00)
[2017-11-09] MEDS: CALCIUM CARBONATE 500 MG TAB.CHEW GT SCH ×3 (09:00→16:40)
[2017-11-09] MEDS: METHADONE HCL 10 MG TABLET GT SCH (09:00)
[2017-11-09] MEDS: HYDROCODONE/APAP 5/325MG 1 EACH TABLET PO SCH ×2 (10:00→20:32)
--- NOTE | 2017-11-09 10:04 | NUR ---
RAVI called office of Dr. Lopes/Dr. Peter DDS to see if there is an earlier appt date other than November 29, as the resident is complaining of pain. RAVI spoke to Jaylan and she noted that the resident can be brought in on Monday November 13, 2017 at 8:15AM. Resident to get his cavity filling and deep cleaning at this time. RAVI spoke to RT director Janiya who stated that RT is able to accompany him to his appointment during this time. Informed charge nurse about anesthesia options: 2% lidocaine with 1 to 1000,000 k epi or 3% carbocaine with no epi. She checked with Dr. Ugarte and Dr. Ugarte would like 3% carbocaine with no epi to be used for the resident. RAVI informed Mystery and she will inform Dr. Peter on Monday. Informed yzbdub-no-crk Vilma.
[2017-11-09] MEDS: CLOTRIMAZOLE 1% 15 GM TUBE TP SCH ×7 (11:00→20:33)
[2017-11-09] MEDS: HYDROGEN PEROXIDE 480 ML BOTTLE TP SCH ×2 (11:00→20:33)
[2017-11-09] MEDS: Z GUARD REMEDY 4 OZ OINT TP SCH ×5 (11:00→20:33)
[2017-11-09] MEDS: MINERAL OIL/PETROL OINT 396 GM JAR TP SCH ×2 (11:00→20:33)
[2017-11-09] MEDS: DAKINS QUARTER STRENGTH (0.125%) 480 ML BOTTLE TOP SCH ×6 (11:00→20:33)
--- NOTE | 2017-11-09 15:19 | NUR ---
Wound debridement done by Dr Rafiq Diaz on pt's sacral, left buttock, and right buttock wounds. Pt tolerated well.
--- NOTE | 2017-11-09 15:25 | NUR ---
Pt's dental appointment changed to 11/13/17 at 8:15am. Dr. Ugarte aware of new schedule. Asked Dr Ugarte if he prefers anesthesia with or without epi for pt (either Lidocaine 1:100,000k with epi or 3% Carbocaine without epi per dental office). He said to give 3% Carbocaine without epi.
[2017-11-09] MEDS: METHOCARBAMOL (750MG) 750 MG TABLET GT PRN (15:39)
[2017-11-09] MEDS: HYDROCODONE/APAP 5/325MG 1 EACH TABLET GT PRN (15:45)
[2017-11-09 19:39] VITALS: BP 101/60
[2017-11-09] MEDS: ENOXAPARIN SODIUM 40 MG/0.4 ML DISP.SYRIN SQ SCH (20:32)
[2017-11-09] MEDS: PROSOURCE / PROSTAT (PYXIS) 30 ML UDC GT SCH (20:32)
[2017-11-09] MEDS: ZINC SULFATE 220 MG CAPSULE PO SCH (20:32)
[2017-11-09] MEDS: MAGNESIUM HYDROXIDE 30 ML UDC GT PRN (20:33)
[2017-11-09] MEDS: POLYETHYLENE GLYCOL 3350 17 GM POWD.PACK GT SCH (22:14)
[2017-11-09] MEDS: ATORVASTATIN 10 MG TABLET GT SCH (22:14)
[2017-11-10] MEDS: VANCOMYCIN 0.75 GM in IV D5W 250 ML IV SCH ×2
[2017-11-10] MEDS: IPRATROPIUM NEB FS 0.5 MG/2.5 ML AMPUL.NEB NEB SCH ×4 (01:58→19:38)
[2017-11-10] MEDS: ALBUTEROL HALF STRENGTH 1.25 MG/3 ML VIAL.NEB NEB SCH ×4 (01:58→19:38)
[2017-11-10] MEDS: MEROPENEM IV SCH ×2 (05:23→13:00)
[2017-11-10] MEDS: NS 0.9% IV SCH ×2 (05:23→13:00)
[2017-11-10 07:22] LABS: CALCIUM, SERUM 8.7 mg/dL (8.5-10.1); CREATININE 0.8 mg/dL (0.6-1.3); POTASSIUM 4.6 mmol/L (3.5-5.1)
[2017-11-10 07:54] VITALS: BP 118/66
[2017-11-10] MEDS: HYDROCODONE/APAP 5/325MG 1 EACH TABLET PO SCH ×2 (09:00→20:30)
[2017-11-10] MEDS: FAMOTIDINE (20 MG) 20 MG TABLET GT SCH ×2 (09:58→20:29)
[2017-11-10] MEDS: GABAPENTIN 300 MG CAPSULE GT SCH ×3 (09:58→17:45)
[2017-11-10] MEDS: MULTIVIT, IRON, MIN NO. 8, FA 1 TAB GT SCH (09:59)
[2017-11-10] MEDS: ASCORBIC ACID 500 MG TABLET GT SCH ×2 (09:59→17:45)
[2017-11-10] MEDS: ESCITALOPRAM OXALATE (10 MG) 10 MG TABLET GT SCH (09:59)
[2017-11-10] MEDS: ACIDOPHILUS/BULGARICUS 1 EACH TAB.CHEW GT SCH ×3 (09:59→17:44)
[2017-11-10] MEDS: CALCIUM CARBONATE 500 MG TAB.CHEW GT SCH ×3 (09:59→17:45)
[2017-11-10] MEDS: CALCITRIOL 0.25 MCG CAPSULE PO SCH (09:59)
[2017-11-10] MEDS: BACLOFEN (10 MG) 10 MG TABLET GT SCH ×4 (09:59→20:29)
[2017-11-10] MEDS: METHADONE HCL 10 MG TABLET GT SCH (09:59)
[2017-11-10] MEDS: HYDROGEN PEROXIDE 480 ML BOTTLE TP SCH ×2 (10:00→20:30)
[2017-11-10] MEDS: CLOTRIMAZOLE 1% 15 GM TUBE TP SCH ×7 (10:00→20:30)
[2017-11-10] MEDS: POVIDONE-IODINE OINT 28.4 GM TUBE TP SCH (10:00)
[2017-11-10] MEDS: DAKINS QUARTER STRENGTH (0.125%) 480 ML BOTTLE TOP SCH ×6 (10:00→20:30)
[2017-11-10] MEDS: MINERAL OIL/PETROL OINT 396 GM JAR TP SCH ×2 (10:00→20:30)
[2017-11-10] MEDS: Z GUARD REMEDY 4 OZ OINT TP SCH ×5 (10:00→20:31)
[2017-11-10] MEDS: HYDROCODONE/APAP 5/325MG 1 EACH TABLET GT PRN (12:44)
--- NOTE | 2017-11-10 16:18 | NUR ---
RT NOTE RECEIVED PT TRACH ON VENT WITH NOTED SETTINGS. CASKET ASSEMBLER DONE AND TRACH IS SECURE. VENT ALARMS CHECKED AND AUDIBLE. VENT PLUGGED IN RED OUTLET. AMBU BAG AND SPARE TRACH NOTED HOB. SX WITH MOD THK YELLOW SECRETIONS. PT ON CONTINUOUS PULSE OX. BREATHING TX GIVEN. NO SOB OR RESP DISTRESS NOTED. WILL CONTINUE TO MONITOR T/O SHIFT.
[2017-11-10 19:42] VITALS: BP 116/78
[2017-11-10] MEDS: PROSOURCE / PROSTAT (PYXIS) 30 ML UDC GT SCH (20:29)
[2017-11-10] MEDS: ENOXAPARIN SODIUM 40 MG/0.4 ML DISP.SYRIN SQ SCH (20:30)
[2017-11-10] MEDS: ZINC SULFATE 220 MG CAPSULE PO SCH (20:30)
[2017-11-10] MEDS: ATORVASTATIN 10 MG TABLET GT SCH (21:37)
[2017-11-10] MEDS: POLYETHYLENE GLYCOL 3350 17 GM POWD.PACK GT SCH (21:37)
[2017-11-11] MEDS: VANCOMYCIN 0.75 GM in IV D5W 250 ML IV SCH ×2
[2017-11-11] MEDS: IPRATROPIUM NEB FS 0.5 MG/2.5 ML AMPUL.NEB NEB SCH ×4 (01:41→19:32)
[2017-11-11] MEDS: ALBUTEROL HALF STRENGTH 1.25 MG/3 ML VIAL.NEB NEB SCH ×4 (01:42→19:32)
[2017-11-11 07:41] LABS: CALCIUM, SERUM 8.8 mg/dL (8.5-10.1); CREATININE 0.7 mg/dL (0.6-1.3); POTASSIUM 4.3 mmol/L (3.5-5.1)
[2017-11-11 08:02] VITALS: BP 115/72
[2017-11-11] MEDS: METHADONE HCL 10 MG TABLET GT SCH (09:14)
[2017-11-11] MEDS: CALCIUM CARBONATE 500 MG TAB.CHEW GT SCH ×3 (09:25→17:40)
[2017-11-11] MEDS: BACLOFEN (10 MG) 10 MG TABLET GT SCH ×4 (09:25→20:20)
[2017-11-11] MEDS: ASCORBIC ACID 500 MG TABLET GT SCH ×2 (09:25→17:41)
[2017-11-11] MEDS: GABAPENTIN 300 MG CAPSULE GT SCH ×3 (09:25→17:40)
[2017-11-11] MEDS: MULTIVIT, IRON, MIN NO. 8, FA 1 TAB GT SCH (09:25)
[2017-11-11] MEDS: CALCITRIOL 0.25 MCG CAPSULE PO SCH (09:25)
[2017-11-11] MEDS: FAMOTIDINE (20 MG) 20 MG TABLET GT SCH ×2 (09:25→20:20)
[2017-11-11] MEDS: ESCITALOPRAM OXALATE (10 MG) 10 MG TABLET GT SCH (09:25)
[2017-11-11] MEDS: ACIDOPHILUS/BULGARICUS 1 EACH TAB.CHEW GT SCH ×3 (09:25→17:40)
[2017-11-11] MEDS: HYDROCODONE/APAP 5/325MG 1 EACH TABLET PO SCH ×2 (10:30→20:21)
[2017-11-11] MEDS: HYDROGEN PEROXIDE 480 ML BOTTLE TP SCH ×2 (11:30→20:21)
[2017-11-11] MEDS: MINERAL OIL/PETROL OINT 396 GM JAR TP SCH ×2 (11:30→20:21)
[2017-11-11] MEDS: Z GUARD REMEDY 4 OZ OINT TP SCH ×5 (11:30→20:22)
[2017-11-11] MEDS: CLOTRIMAZOLE 1% 15 GM TUBE TP SCH ×7 (11:30→20:22)
[2017-11-11] MEDS: POVIDONE-IODINE OINT 28.4 GM TUBE TP SCH (11:30)
[2017-11-11] MEDS: DAKINS QUARTER STRENGTH (0.125%) 480 ML BOTTLE TOP SCH ×6 (11:30→20:21)
[2017-11-11] MEDS: HYDROCODONE/APAP 5/325MG 1 EACH TABLET GT PRN (18:36)
[2017-11-11] MEDS: PROSOURCE / PROSTAT (PYXIS) 30 ML UDC GT SCH (20:20)
[2017-11-11] MEDS: ZINC SULFATE 220 MG CAPSULE PO SCH (20:21)
[2017-11-11] MEDS: ENOXAPARIN SODIUM 40 MG/0.4 ML DISP.SYRIN SQ SCH (20:21)
[2017-11-11 20:58] VITALS: BP 134/75
[2017-11-11] MEDS: POLYETHYLENE GLYCOL 3350 17 GM POWD.PACK GT SCH (21:16)
[2017-11-11] MEDS: ATORVASTATIN 10 MG TABLET GT SCH (21:16)
[2017-11-12] MEDS: IPRATROPIUM NEB FS 0.5 MG/2.5 ML AMPUL.NEB NEB SCH ×4 (01:12→19:33)
[2017-11-12] MEDS: ALBUTEROL HALF STRENGTH 1.25 MG/3 ML VIAL.NEB NEB SCH ×4 (01:12→19:33)
[2017-11-12 07:53] VITALS: BP 122/78
[2017-11-12 08:00] LABS: CALCIUM, SERUM 9.2 mg/dL (8.5-10.1); CREATININE 0.7 mg/dL (0.6-1.3); POTASSIUM 4.4 mmol/L (3.5-5.1)
--- NOTE | 2017-11-12 08:01 | NUR ---
RT PT RECEIVED WITH A SHILEY 8 TRACH ON THE VENT. PT IS AWAKE AND ALERT. PT TAKEN OFF VENT AND PLACED ON COOL AEROSOL PER MD ORDER, TOLERATING WELL. PT SX'D AND HHN TX GIVEN WITH NO ADVERSE REACTIONS. NO RESPIRATORY DISTRESS NOTED AT THIS TIME, WILL CONTINUE TO MONITOR. Addendum: 11/12/17 at 1153 by ESPERANZA HOOPER RT Amended: Links added.
[2017-11-12] MEDS: MULTIVIT, IRON, MIN NO. 8, FA 1 TAB GT SCH (09:03)
[2017-11-12] MEDS: CALCIUM CARBONATE 500 MG TAB.CHEW GT SCH ×3 (09:03→17:45)
[2017-11-12] MEDS: BACLOFEN (10 MG) 10 MG TABLET GT SCH ×4 (09:03→21:29)
[2017-11-12] MEDS: ASCORBIC ACID 500 MG TABLET GT SCH ×2 (09:03→17:40)
[2017-11-12] MEDS: METHADONE HCL 10 MG TABLET GT SCH (09:03)
[2017-11-12] MEDS: CALCITRIOL 0.25 MCG CAPSULE PO SCH (09:03)
[2017-11-12] MEDS: ESCITALOPRAM OXALATE (10 MG) 10 MG TABLET GT SCH (09:03)
[2017-11-12] MEDS: FAMOTIDINE (20 MG) 20 MG TABLET GT SCH ×2 (09:03→21:29)
[2017-11-12] MEDS: GABAPENTIN 300 MG CAPSULE GT SCH ×3 (09:03→17:45)
[2017-11-12] MEDS: ACIDOPHILUS/BULGARICUS 1 EACH TAB.CHEW GT SCH ×3 (09:03→17:45)
[2017-11-12] MEDS: HYDROCODONE/APAP 5/325MG 1 EACH TABLET PO SCH ×2 (10:10→21:29)
[2017-11-12] MEDS: CLOTRIMAZOLE 1% 15 GM TUBE TP SCH ×7 (11:10→21:00)
[2017-11-12] MEDS: MINERAL OIL/PETROL OINT 396 GM JAR TP SCH ×2 (11:10→21:30)
[2017-11-12] MEDS: POVIDONE-IODINE OINT 28.4 GM TUBE TP SCH (11:10)
[2017-11-12] MEDS: HYDROGEN PEROXIDE 480 ML BOTTLE TP SCH ×2 (11:10→21:30)
[2017-11-12] MEDS: Z GUARD REMEDY 4 OZ OINT TP SCH ×5 (11:10→21:00)
[2017-11-12] MEDS: DAKINS QUARTER STRENGTH (0.125%) 480 ML BOTTLE TOP SCH ×6 (11:10→21:00)
--- NOTE | 2017-11-12 21:02 | NUR ---
PATIENT WAS RECEIVED ON CONTINUOS VENT SUPPORT WITH NOTED VENT SETTINGS. SUCTIONED PATIENT WITH A SMALL AMOUNT OF THIN PALE YELLOWISH SECRETIONS. ALARMS ON AND AUDIBLE. AMBUBAG AND SPARE TRACH AT BED SIDE. VENT PLUGGED TO RED OUTLET. PATIENT STABLE AT THIS TIME . HHN TREATMENT TOLERATED WELL.WILL CONTINUE TO MONITOR. Addendum: 11/12/17 at 2102 by ROM ARAIZA RT Amended: Links added.
[2017-11-12] MEDS: PROSOURCE / PROSTAT (PYXIS) 30 ML UDC GT SCH (21:29)
[2017-11-12] MEDS: ZINC SULFATE 220 MG CAPSULE PO SCH (21:29)
[2017-11-12] MEDS: POLYETHYLENE GLYCOL 3350 17 GM POWD.PACK GT SCH (21:30)
[2017-11-12] MEDS: ENOXAPARIN SODIUM 40 MG/0.4 ML DISP.SYRIN SQ SCH (21:30)
[2017-11-12] MEDS: ATORVASTATIN 10 MG TABLET GT SCH (21:30)
[2017-11-13] MEDS: ALBUTEROL HALF STRENGTH 1.25 MG/3 ML VIAL.NEB NEB SCH ×4 (01:08→19:33)
[2017-11-13] MEDS: IPRATROPIUM NEB FS 0.5 MG/2.5 ML AMPUL.NEB NEB SCH ×4 (01:08→19:33)
[2017-11-13 08:00] LABS: BASOPHILS # (AUTO) 0.1 /CMM (0.0-0.2); BASOPHILS % (AUTO) 0.7 % (0.0-2.0); EOSINOPHILS % (AUTO) 3.3 % (0.0-6.0); HEMATOCRIT 26 % (39-51); HEMOGLOBIN 8.2 g/dL (13.5-17.5); LYMPHOCYTES # (AUTO) 1.9 /CMM (0.8-4.8); LYMPHOCYTES % (AUTO) 18.1 % (20.0-44.0); MEAN CORPUSCULAR HGB CONC 31 g/dl (31.0-36.0); MEAN CORPUSCULAR VOLUME 80 fL (80-96); MONOCYTES % (AUTO) 9.3 % (2.0-12.0); NEUTROPHILS # (AUTO) 7.2 /CMM (1.8-8.9); NEUTROPHILS % (AUTO) 68.6 % (43.0-81.0); PLATELET COUNT (AUTO) 467 /CMM (150-450); RDW COEFFICIENT OF VARIATION 21.8 (11.5-15.0); RED BLOOD CELL COUNT(AUTO) 3.31 MIL/uL (4.5-6.0); WHITE BLOOD COUNT (AUTO) 10.6 K/uL (4.3-11.0)
--- NOTE | 2017-11-13 08:05 | NUR ---
RT PT TAKEN TO DENTAL APPOINTMENT. PT IS AWAKE AND STABLE AT THIS TIME.
[2017-11-13 08:22] VITALS: BP 122/76
--- NOTE | 2017-11-13 08:47 | NUR ---
Received a call from the office of Dr. Lopes/Dr. Rome TERRAZAS and spoke with Mysyossi. noted that they did the x-rays for him and that the resident has a partial tooth that is chipped off and needs to be extracted. She noted that the resident will be referred to the office of Dr. Montiel ([address], [address] [place] [address] ) for the tooth extraction. noted that aside from the x-rays, they also irrigated out the area and cleaned it. RAVI informed resident's yobvie-sh-gzs Vilma Marley. RAVI also left message for subacute field human resources manager Cristal regarding needing to make an appointment for resident and RT availability. SW to follow up on mode of transportation since medical office is located across the hospital as well as to make the appointment for the resident. Charge nurse was informed.
--- NOTE | 2017-11-13 08:50 | NUR ---
RT PT BROUGHT BACK FROM DENTAL APPOINTMENT. HOOKED PT BACK ON COOL AEROSOL. PT IS AWAKE AND ALERT. NO SOB OR RESPIRATORY DISTRESS NOTED. PT SX'D MODERATE THICK PALE YELLOW SECRETIONS.
--- NOTE | 2017-11-13 09:00 | NUR ---
Pt went to dental appointment with Dr Lopes. According to social service liaison Mayra, pt has a broken tooth that needs to be extracted. Dr Lopes is unable to do the procedure at his office and pt needs to go to Dr Montiel. Pt's teeth were cleaned at Dr Lopes's office. Mayra said she will discuss it with Subacute reo asset manager and make the necessary arrangements. Addendum: 11/13/17 at 0954 by WINIFRED GARCÍA RN X-ray of teeth was also done today at the dental office.
[2017-11-13] MEDS: METHADONE HCL 10 MG TABLET GT SCH (09:25)
[2017-11-13] MEDS: GABAPENTIN 300 MG CAPSULE GT SCH ×3 (09:44→17:27)
[2017-11-13] MEDS: ESCITALOPRAM OXALATE (10 MG) 10 MG TABLET GT SCH (09:44)
[2017-11-13] MEDS: MULTIVIT, IRON, MIN NO. 8, FA 1 TAB GT SCH (09:44)
[2017-11-13] MEDS: BACLOFEN (10 MG) 10 MG TABLET GT SCH ×4 (09:44→21:01)
[2017-11-13] MEDS: ACIDOPHILUS/BULGARICUS 1 EACH TAB.CHEW GT SCH ×3 (09:44→17:27)
[2017-11-13] MEDS: FAMOTIDINE (20 MG) 20 MG TABLET GT SCH ×2 (09:44→21:01)
[2017-11-13] MEDS: CALCITRIOL 0.25 MCG CAPSULE PO SCH (09:45)
[2017-11-13] MEDS: CALCIUM CARBONATE 500 MG TAB.CHEW GT SCH ×3 (09:45→17:27)
[2017-11-13] MEDS: ASCORBIC ACID 500 MG TABLET GT SCH ×2 (09:45→17:27)
--- NOTE | 2017-11-13 10:03 | NUR ---
SW called [facility] ([phone]) to see if the resident has transportation services as part of his plan. SW spoke to Ashli at who indicated that it is included and that they will need at least 5 days advanced notice to schedule. They also stated that they are able to provide the RT . RAVI called the office of Dr. Montiel and spoke with Sole. She stated that she will talk to Dr. Montiel about which date and time is best to schedule the resident and that she will call back the SW. RAVI will follow up.
[2017-11-13] MEDS: HYDROCODONE/APAP 5/325MG 1 EACH TABLET PO SCH ×2 (10:30→21:04)
--- NOTE | 2017-11-13 10:51 | NUR ---
RAVI spoke with Luzmaria from the office of Dr. Montiel ([address], [address] [place] [address] ) and she scheduled the resident's appointment for Friday November 24, 2017 at 2pm. She said the cost will be the same as last time $575 and SW informed the resident's llyxvp-tq-qsv Vilma. RAVI will schedule transportation services with RT for the resident using his [employer] benefits on 11/17/2017 as they require 5 days notice. RAVI also communicated with charge nurse and informed her of appointment time and date (November 24, 2017 at 2pm). She will ask the resident's doctor whether any of resident's medications need to be held and also informed her that 3% carbocaine without epi will be used for anesthesia.
--- NOTE | 2017-11-13 11:27 | NUR ---
RAVI informed the resident's yntnxs-lt-nxi Vilma about upcoming IDT meeting on Friday November 17, 2017 from 12:30-1:30PM. She stated that [place]
[2017-11-13] MEDS: MINERAL OIL/PETROL OINT 396 GM JAR TP SCH ×2 (11:30→21:04)
[2017-11-13] MEDS: Z GUARD REMEDY 4 OZ OINT TP SCH ×5 (11:30→21:05)
[2017-11-13] MEDS: DAKINS QUARTER STRENGTH (0.125%) 480 ML BOTTLE TOP SCH ×6 (11:30→21:04)
[2017-11-13] MEDS: POVIDONE-IODINE OINT 28.4 GM TUBE TP SCH (11:30)
[2017-11-13] MEDS: HYDROGEN PEROXIDE 480 ML BOTTLE TP SCH ×2 (11:30→21:05)
[2017-11-13] MEDS: CLOTRIMAZOLE 1% 15 GM TUBE TP SCH ×7 (11:30→21:05)
--- NOTE | 2017-11-13 15:15 | NUR ---
RT NOTE: PATIENT RECEIVED TRACHED ON MECHANICAL VENT AND PLACED ON COOL AEROSOL PER MD ORDER. SUCTIONED AND LAVAGED MODERATE-LARGE AMOUNT OF THICK FOURNIER SECRETIONS. PATIENT IS TOLERATING WELL. WILL CONTINUE TO MONITOR.
[2017-11-13 19:58] VITALS: BP 126/81
[2017-11-13] MEDS: PROSOURCE / PROSTAT (PYXIS) 30 ML UDC GT SCH (21:01)
[2017-11-13] MEDS: ZINC SULFATE 220 MG CAPSULE PO SCH (21:04)
[2017-11-13] MEDS: ENOXAPARIN SODIUM 40 MG/0.4 ML DISP.SYRIN SQ SCH (21:04)
[2017-11-13] MEDS: ATORVASTATIN 10 MG TABLET GT SCH (21:05)
[2017-11-13] MEDS: POLYETHYLENE GLYCOL 3350 17 GM POWD.PACK GT SCH (21:05)
[2017-11-14] MEDS: IPRATROPIUM NEB FS 0.5 MG/2.5 ML AMPUL.NEB NEB SCH ×3 (01:41→13:20)
[2017-11-14] MEDS: ALBUTEROL HALF STRENGTH 1.25 MG/3 ML VIAL.NEB NEB SCH ×3 (01:41→13:20)
[2017-11-14] MEDS: HYDROCODONE/APAP 5/325MG 1 EACH TABLET GT PRN (01:59)
[2017-11-14 07:37] VITALS: BP 108/62
[2017-11-14] MEDS: GABAPENTIN 300 MG CAPSULE GT SCH ×2 (08:45→12:44)
[2017-11-14] MEDS: BACLOFEN (10 MG) 10 MG TABLET GT SCH ×2 (08:45→12:44)
[2017-11-14] MEDS: ESCITALOPRAM OXALATE (10 MG) 10 MG TABLET GT SCH (08:45)
[2017-11-14] MEDS: ACIDOPHILUS/BULGARICUS 1 EACH TAB.CHEW GT SCH ×2 (08:45→12:44)
[2017-11-14] MEDS: FAMOTIDINE (20 MG) 20 MG TABLET GT SCH (08:46)
[2017-11-14] MEDS: CALCIUM CARBONATE 500 MG TAB.CHEW GT SCH ×2 (08:46→12:44)
[2017-11-14] MEDS: ASCORBIC ACID 500 MG TABLET GT SCH (08:46)
[2017-11-14] MEDS: MULTIVIT, IRON, MIN NO. 8, FA 1 TAB GT SCH (08:46)
--- NOTE | 2017-11-14 08:46 | NUR ---
PT RECEIVED ON MECHANICAL VENT. TRACH IS SECURE. BREATHING TX GIVEN, NO ADVERSE REACTIONS NOTED. SUCTIONED PT SMALL ,WHITE SECRETIONS. AMBU BAG IS AT BEDSIDE. VENT IS PLUGGED INTO RED OUTLET. VENT ALARMS ARE ON AND AUDIBLE. WILL CONT TO MONITOR PT. Addendum: 11/14/17 at 0846 by JC VICTORIA RT Amended: Links added.
[2017-11-14] MEDS: CALCITRIOL 0.25 MCG CAPSULE PO SCH (08:47)
[2017-11-14] MEDS: POVIDONE-IODINE OINT 28.4 GM TUBE TP SCH (09:00)
[2017-11-14] MEDS: MINERAL OIL/PETROL OINT 396 GM JAR TP SCH (09:00)
[2017-11-14] MEDS: METHADONE HCL 10 MG TABLET GT SCH ×2 (09:00→10:00)
[2017-11-14] MEDS: HYDROCODONE/APAP 5/325MG 1 EACH TABLET PO SCH ×2 (09:00→10:00)
[2017-11-14] MEDS: HYDROGEN PEROXIDE 480 ML BOTTLE TP SCH (09:00)
[2017-11-14] MEDS: DAKINS QUARTER STRENGTH (0.125%) 480 ML BOTTLE TOP SCH ×3 (09:00)
[2017-11-14] MEDS: Z GUARD REMEDY 4 OZ OINT TP SCH ×3 (09:00)
[2017-11-14] MEDS: CLOTRIMAZOLE 1% 15 GM TUBE TP SCH ×4 (09:00)
--- NOTE | 2017-11-14 09:52 | NUR ---
Seen by Dr Ugarte. Notified him pt went to dental appointment yesterday on cool aerosol. Pt tolerated well. Pt needs to have his partially broken tooth extracted. Dr Ugarte ordered to hold Lovenox 24 hours before the procedure. Per bilingual social worker Mayra, dental appointment with Dr Montiel is on 11/24/17Monday at 2:00 pm.
--- NOTE | 2017-11-14 11:30 | NUR ---
Seen by Dr Walker. Pt's heart rate 111-114. No new order at this time.
--- NOTE | 2017-11-14 12:25 | NUR ---
Pt was cleaned, repositioned. Wound treatment was done by BRO Ruelas. Pt's heart rate 140-150 bpm. Pt lethargic and did not eat lunch. Charge nurse checked V/S. T 102 F BP 135/81. Pt was placed back on SIMV. Notified Dr Ugarte. He ordered to do blood culture x 2, UA C & S, Merrem IV dose per pharmacy, Vancomycin 1 gm IV x 1, CBC, place on AC 14 VT 400 FiO2 40% Peep +5. Left message for Vilma Marley.
--- NOTE | 2017-11-14 13:00 | NUR ---
Administered Vancomycin 1 gm IV as ordered. Pt lethargic, opens eyes for a couple of seconds only with verbal and tactile stimuli.
--- NOTE | 2017-11-14 13:21 | NUR ---
BREATHING TX WAS NOT GIVEN DUE TO HIGH RR. PT'S RR IS 147 AND SPO2 97%. DR AMAYA ORDERED TO CHANGE TO AC 12, 400, +5 AND 40% ON MECHANICAL VENT. RN IS AWARE OF HOLDING BREATHING TX FOR NOW.
[2017-11-14] MEDS ORDERED: MEROPENEM 1 G in IV NS 0.9% 100 ML IV SCH (13:30)
[2017-11-14] MEDS ORDERED: VANCOMYCIN 1 GM in IV D5W 250ml IV ONE (14:30)
--- NOTE | 2017-11-14 15:00 | NUR ---
Administered Meropenem 1 gm IV as dosed by [facility] pharmacist Hector. Pt still lethargic. HR 111-120.
--- NOTE | 2017-11-14 15:20 | NUR ---
RN Jessenia reported that pt's BP 71/44 HR 109. Charge nurse also checked pt's BP, BP was 73/44. Pt was placed on Trendelenburg position. Notified Dr Ugarte. He ordered to give NS 500 cc over 30 minutes, repeat if SBP still less than 100, then NS 100 cc/hr IV x 2 liters. He also ordered to DC Peep. Notified RT
--- NOTE | 2017-11-14 15:40 | NUR ---
IV NS 1000 cc/hr infusing. RT Murad DC'd Peep. Dr Ugarte came to see pt. Upon reassessing pt's BP, BP was 64/35 HR 107. T 100.[address] Ugarte ordered to transfer pt to ICU.
--- NOTE | 2017-11-14 16:00 | NUR ---
Pt was transferred to ICU. Report given to charge nurse Joanne and RN Wiliam. Notified Dr Walker. Also notified pt's indvtp-fb-sxn Vilma Marley.
--- NOTE | 2017-11-17 14:00 | NUR ---
RAVI asked Dr. Ugarte regarding resident's dental appt on November 24, 2017. However, resident is off the unit and Dr. Ugarte anticipates him coming back early next week. He noted that he wants to see how the resident does and to postpone dental appt. RAVI called the office of Dr. Montiel and spoke with Luzmaria. Appt was rescheduled to December 07, 2017 at 2:30PM at the office of Dr. Montiel ([address] [place] [address], [address] [place], [place] [id number]). Charge nurse informed as well as the resident's dmqoma-mi-vjz Vilma.
== END 2017-11-14 16:01 | disposition short-term general hospital (02) | DRG 981 ==
LOC: SA 15:58
PROVIDERS: ADMIT Internal Medicine; ATTEND Internal Medicine
PROC: 5A1955Z Respiratory Ventilation, Greater than 96 Consecutive Hours (ICD-10-PCS; principal; 2017-09-29)
PROC: 05H533Z Insertion of Infusion Device into Right Subclavian Vein, Percutaneous Approach (ICD-10-PCS; 2017-10-02)
PROC: B546ZZA Ultrasonography of Right Subclavian Vein, Guidance (ICD-10-PCS; 2017-10-02)
PROC: 0KBP0ZZ Excision of Left Hip Muscle, Open Approach (ICD-10-PCS; 2017-10-12)
PROC: 0KBN0ZZ Excision of Right Hip Muscle, Open Approach (ICD-10-PCS; 2017-10-12)
PROC: 0KBP0ZZ Excision of Left Hip Muscle, Open Approach (ICD-10-PCS; 2017-11-09)
PROC: 0KBN0ZZ Excision of Right Hip Muscle, Open Approach (ICD-10-PCS; 2017-11-09)
DX: J96.11 Chronic respiratory failure with hypoxia (principal); L89.154 Pressure ulcer of sacral region, stage 4; L89.324 Pressure ulcer of left buttock, stage 4; L89.314 Pressure ulcer of right buttock, stage 4; G93.41 Metabolic encephalopathy; J18.9 Pneumonia, unspecified organism; R65.21 Severe sepsis with septic shock; I21.A1 Myocardial infarction type 2; N17.0 Acute kidney failure with tubular necrosis; A41.50 Gram-negative sepsis, unspecified; G82.50 Quadriplegia, unspecified; E66.2 Morbid (severe) obesity with alveolar hypoventilation; D68.59 Other primary thrombophilia; M86.60 Other chronic osteomyelitis, unspecified site; N13.2 Hydronephrosis with renal and ureteral calculous obstruction; Z99.11 Dependence on respirator [ventilator] status; N39.0 Urinary tract infection, site not specified; J98.11 Atelectasis; E87.2 Acidosis; J96.12 Chronic respiratory failure with hypercapnia; J44.9 Chronic obstructive pulmonary disease, unspecified; G35 Multiple sclerosis; E11.69 Type 2 diabetes mellitus with other specified complication; D50.9 Iron deficiency anemia, unspecified; K21.9 Gastro-esophageal reflux disease without esophagitis; L60.0 Ingrowing nail; L60.3 Nail dystrophy; Z93.6 Other artificial openings of urinary tract status; Z93.1 Gastrostomy status; Z93.0 Tracheostomy status; B95.2 Enterococcus as the cause of diseases classified elsewhere; Z87.442 Personal history of urinary calculi; Z16.24 Resistance to multiple antibiotics; D53.9 Nutritional anemia, unspecified; Z74.01 Bed confinement status; Z85.828 Personal history of other malignant neoplasm of skin; R13.10 Dysphagia, unspecified; Z74.09 Other reduced mobility; D63.8 Anemia in other chronic diseases classified elsewhere; Z87.440 Personal history of urinary (tract) infections; Q54.9 Hypospadias, unspecified; Z79.899 Other long term (current) drug therapy; M85.9 Disorder of bone density and structure, unspecified; I25.2 Old myocardial infarction; I10 Essential (primary) hypertension; D47.3 Essential (hemorrhagic) thrombocythemia
CPT/HCPCS: 31720; 36415; 36600; 71045-TC; 80048-TC; 80202-TC; 82565-TC; 82803-TC; 84520-TC; 85025-TC; 87040-TC; 87086-TC; 92611-TC; 94003-TC; 94640-TC; 94760-TC; 94762-TC; 94799-TC; A4606; A4623; A6248; A6253; A6402; A6403; A7526; J0692; J0770; J1650; J2185; J3370; J7030; J7050; J7060; L8501

== ENCOUNTER 2017-11-14 16:01 | Inpatient (IN) | payer MEDICARE, MEDICAID ==
[2017-11-14] VITALS (49 sets, daily range): BP systolic 69–154; BP diastolic 37–83
[~2017-11-14] VITALS: Ht 185.4 cm; Wt 75.3 kg
--- NOTE | 2017-11-14 15:45 | NUR ---
RT PT BROUGHT TO ICU FROM SUB ACUTE WITH A SHILEY 8 TRACH, PT PLACED ON VENT WITH NOTED SETTINGS. PT IS NOT RESPONDING AT THIS TIME. VENT ALARMS ARE SET AND AUDIBLE WITH BVM BY BEDSIDE. PATIENT CARE REPRESENTATIVE CUFF PRESSURE NOTED. VENT IS PLUGGED INTO RED OUTLET. SX'D SMALL THICK PALE YELLOW SECRETIONS. WILL CONTINUE TO MONITOR. Addendum: 11/14/17 at 1633 by ESPERANZA HOOPER RT Amended: Links added.
[~2017-11-14 16:01] MED LIST changes: +ALLA266C2 TP; +CEFE1VIA3 SQ; -CEFT1VIA15 IV; -CLOP75TA15 GT; +CLOT15CR63 TP; +COLI150V12 NEB; -CRAN405C GT; -DEXTROSE IV; -GEL100GE MC; -HYDR-548 GT; -LACT-246 PO; +MAG30ORA GT; -METO25TA6 GT; -MINE105O TP; +MINE396O3 TP; +NUT.237L30 GT; -NYST15CR15 TP; -OXYC-133 GT; -POLY17PO4 PO; +SODI473S8 TOP; -SODI473S9 MC; -SODIUM CHLORIDE IV; +VANC750P8 IV
--- NOTE | 2017-11-14 16:18 | NUR ---
RN INITIAL NOTES RECEIVED PT FROM SUBACUTE FOR POSSIBLE SEPSIS. PT TRACH IN PLACE, ON VENT. PT NOT RESPONDING AT THIS TIME. NO RESPIRATORY DISTRESS NOTED. PT CONNECTED TO MONITOR. VS TAKEN BP 71/41, P 101, 02 SAT 96%, TEMP 101.7. DR AMAYA IN THE UNIT. AWARE OF ADMISSION. ORDERED GIVE IVF NS AND LAB WORKS PER SEPSIS PROTOCOL. LEVOPHED STARTED, WILL TITRATE ACCORDINGLY. BODY ASSESSMENT DONE, PICTURES TAKEN AND PLACED IN THE CHART. DR CALVIN NOTIFIED OF ADMISSION. AWAITING FOR ORDERS. WILL CLOSELY MONITOR.
[2017-11-14] MEDS ORDERED: IV NS 0.9% 1,000 ML BAG IV ONE (16:30)
[2017-11-14] MEDS ORDERED: NOREPINEPHRINE 8 MG in IV D5W 500 ML IV PRN (16:30)
[2017-11-14] MEDS ORDERED: IV NS 0.9% 1,000 ML IV PRN (16:30)
[2017-11-14] MEDS ORDERED: IV D5/ 0.9% NACL 1,000 ML IV ONE (16:30)
[2017-11-14 16:48] LABS: BASOPHILS % (AUTO) 0.1 % (0.0-2.0); EOSINOPHILS % (AUTO) 0.3 % (0.0-6.0); HEMATOCRIT 22 % (39-51); LYMPHOCYTES # (AUTO) 0.9 /CMM (0.8-4.8); LYMPHOCYTES % (AUTO) 2.9 % (20.0-44.0); MEAN CORPUSCULAR HGB CONC 31 g/dl (31.0-36.0); MEAN CORPUSCULAR VOLUME 80 fL (80-96); MONOCYTES # (AUTO) 1.6 /CMM (0.1-1.30); MONOCYTES % (AUTO) 5.1 % (2.0-12.0); NEUTROPHILS # (AUTO) 29.3 /CMM (1.8-8.9); NEUTROPHILS % (AUTO) 91.6 % (43.0-81.0); PLATELET COUNT (AUTO) 571 /CMM (150-450); RDW COEFFICIENT OF VARIATION 21.5 (11.5-15.0); RED BLOOD CELL COUNT(AUTO) 2.81 MIL/uL (4.5-6.0)
[2017-11-14 16:51] LABS: ABG BASE EXCESS 2.9 mmol/L; ABG OXYGEN SATURATION 95.9 % (92.0-98.5); ABG PCO2 51.3 mmHg (35.0-45.0); ABG PH 7.366 (7.350-7.450); ABG PO2 91.7 mmHg (75.0-100.0); COHb 0.3 % (0.5-1.5); MetHb 1.1 % (0.0-1.5); O2Hb 94.6 % (94.0-97.0); PEEP,BG 0 cm H2O; SITE, ABG Right Radial; VT, ABG 400 mL
[2017-11-14 16:58] LABS: HEMOGLOBIN 6.9 g/dL (13.5-17.5)
[2017-11-14] MEDS ORDERED: BISACODYL SUPP (10 MG) 10 MG/SUPP.RECT SUPP.RECT RC PRN (17:00)
[2017-11-14] MEDS ORDERED: MAG HYDROX/AL HYDROX/SIMETH 30 ML UDC GT PRN (17:00)
[2017-11-14] MEDS ORDERED: ONDANSETRON 4 MG TAB.RAPDIS GT PRN (17:00)
[2017-11-14] MEDS ORDERED: Z GUARD REMEDY 2 OZ OINT TP PRN (17:00)
[2017-11-14] MEDS ORDERED: METHOCARBAMOL (750MG) 750 MG TABLET GT PRN (17:00)
[2017-11-14] MEDS ORDERED: MAGNESIUM HYDROXIDE 30 ML UDC GT PRN (17:00)
[2017-11-14 17:05] LABS: TROPONIN I 0.055 ng/mL (0.00-0.056)
[2017-11-14 17:11] LABS: APPEARANCE,URINE CLOUDY (CLEAR); BILIRUBIN,URINE NEGATIVE (NEGATIVE); BLOOD, URINE 3+ Ery/uL (NEGATIVE); COLOR,URINE YELLOW (YELLOW); KETONES,URINE NEGATIVE (NEGATIVE); LEUKOCYTE ESTERASE ,URINE 3+ (NEGATIVE); NITRITE, URINE NEGATIVE (NEGATIVE); PROTEIN,URINE 1+ mg/dl (NEGATIVE); UGLUCOSE NEGATIVE (NEGATIVE); UROBILINOGEN,URINE 0.2 EU/dL (0.2)
[2017-11-14 17:15] LABS: INR 1.12 (0.87-1.13)
[2017-11-14] MEDS: ACETAMINOPHEN 325 MG TABLET PO PRN (17:18)
[2017-11-14] MEDS: BACLOFEN (10 MG) 10 MG TABLET GT SCH ×2 (17:18→21:29)
[2017-11-14] MEDS: ACIDOPHILUS/BULGARICUS 1 EACH TAB.CHEW GT SCH (17:18)
[2017-11-14] MEDS: GABAPENTIN 300 MG CAPSULE GT SCH (17:18)
[2017-11-14] MEDS: HYDROCORTISONE SOD SUCCINATE 100 MG/2 ML VIAL IV SCH (17:18)
[2017-11-14 17:32] LABS: BAND % (MANUAL) 14 % (0.0-5.0); LYMPHOCYTES % (MANUAL) 4 % (16-48); MONOCYTES % (MANUAL) 2 % (0-11.0); NEUTROPHILS % (MANUAL) 80 (42-76)
[2017-11-14 17:36] LABS: BACTERIA,URINE 1+ /HPF (None Seen); SQUAMOUS EPITHELIAL CELL,UR Few /HPF (None Seen); WBC,URINE 51-80 /HPF (0-3)
[2017-11-14 17:37] LABS: CALCIUM OXALATE CRYSTALS,UR Rare /HPF (None Seen)
[2017-11-14 17:43] LABS: ALBUMIN 1.8 g/dL (3.4-5.0); BILIRUBIN,DIRECT 0.1 mg/dL (0.0-0.2); BILIRUBIN,TOTAL 0.4 mg/dL (0.2-1.0); CALCIUM, SERUM 7.9 mg/dL (8.5-10.1); CREATININE 1.1 mg/dL (0.6-1.3)
[2017-11-14] MEDS ORDERED: FEE PK DOSING 1 MIN EA MC ONE (18:01)
--- NOTE | 2017-11-14 19:00 | NUR ---
RN CLOSING NOTES: Pt is responsive via verbal & tactile stimuli but still is lethargic. Pt tolerated current adjusted MV settings via trach. ABG results relayed to Dr. Ugarte c/o Chirag, RT. IV line access kept patent & intact. Levodrip titrated accordingly to keep SBP >90. Dr. Sterling made aware re: H/H 6.9/22 w/ orders to transfuse 2 units of PRBC. GT & colostomy bag kept intact. FC & nephrostomy tube kept patent & intact draining to BSB. Got consent for BT & PICC line insertion from pt's sister Vilma via phone call, consent placed in the chart. Rec'd call from PICC line nurse, will insert PICC line tonight. Pt still on close monitoring. Isolation prec observed. Kept well rested. Needs attended. Will endorse to PM RN for ARLENE.
--- NOTE | 2017-11-14 19:30 | NUR ---
RENTAL CLERK TOOL AND EQUIPMENT INITIAL SHIFT NOTES RECEIVED PATIENT IN BED, ASLEEP, AROUSABLE TO TOUCH, OPENS EYES, BUT LETHARGIC. BREATHING EVEN AND NONLABORED WHILE ON MECHANICAL VENTILATOR AT PRESCRIBED SETTINGS, TOLERATING WELL AT THIS TIME. ON TELEMETRY MONITORING, SHOWING SINUS RHYTHM WITH BBB AND OCCASIONAL PVCs. RIGHT NEPHROSTOMY TUBE PATENT AND INTACT, DRAINING CLEAR FLUID TO DRAINAGE BAG. GUZMAN CATHETER PATENT AND INTACT, DRAINING CLEAR YELLOW URINE VIA GRAVITY. PICC LINE NURSE AT BEDSIDE FOR PICC INSERTION, TO BE USED FOR LEVOPHED DRIP. LEVO CURRENTLY INFUSING @ 16MCG/MIN. WILL ATTEMPT TO TITRATE PATIENT'S BP ALLOWS. WILL MONITOR CLOSELY
--- NOTE | 2017-11-14 20:19 | NUR ---
RECEIVED PT TRACHED ON VENT. NO RESP DISTRESS. PT TOLERATING VENT SETTINGS. SX'D FOR SML AMT OF PALE SECRETIONS. VENT ALARMS SET AND AUDIBLE. AMBU BAG AT BEDSIDE. VENT PLUGGED INTO RED OUTLET. TRACH SECURE, CUFF SHEEP RANCHER. WILL CONTINUE TO MONITOR. Addendum: 11/14/17 at 2020 by LIANNA DENNIS RT Amended: Links added.
[2017-11-14] MEDS ORDERED: ENOXAPARIN SODIUM 40 MG/0.4 ML DISP.SYRIN SQ SCH (21:00)
[2017-11-14] MEDS: PROSOURCE / PROSTAT (PYXIS) 30 ML UDC GT SCH (21:00)
--- NOTE | 2017-11-14 21:00 | NUR ---
PHYSICIAN REPRESENTATIVE NOTES LOVENOX HELD DUE TO LOW H/H, ORDERS FOR 2 UNITS OF PRBCs
[2017-11-14] MEDS: CLOTRIMAZOLE 1% 15 GM TUBE TP SCH ×3 (21:27→21:31)
[2017-11-14] MEDS: HYDROGEN PEROXIDE 480 ML BOTTLE TP SCH (21:27)
[2017-11-14] MEDS: FAMOTIDINE (20 MG) 20 MG TABLET GT SCH (21:28)
[2017-11-14] MEDS: MEROPENEM 500 MG in IV NS 0.9% 50 ML IV SCH (21:28)
[2017-11-14] MEDS: MINERAL OIL/PETROL OINT 396 GM JAR TP SCH (21:28)
[2017-11-14] MEDS: ATORVASTATIN 10 MG TABLET GT SCH (21:28)
[2017-11-14] MEDS: POLYETHYLENE GLYCOL 3350 17 GM POWD.PACK GT SCH (21:29)
--- NOTE | 2017-11-14 22:15 | NUR ---
SALESPERSON SHEET MUSIC NOTES BLOOD TRANSFUSION #1/2 INITIATED, TOLERATING WELL. WILL MONITOR CLOSELY FOR ANY S/S OF ADVERSE BLOOD TRANSFUSION REACTION
[2017-11-15] VITALS (57 sets, daily range): BP systolic 81–145; BP diastolic 47–88
[2017-11-15] MEDS: VANCOMYCIN 1 GM in IV D5W 250 ML IV SCH ×2 (00:41→12:28)
[2017-11-15] MEDS: MEROPENEM 500 MG in IV NS 0.9% 50 ML IV SCH ×3 (04:48→20:57)
--- NOTE | 2017-11-15 05:00 | NUR ---
REGISTRAR ASSISTANT NOTES PRBC #2/2 INFUSED, PATIENT TOLERATED WELL. FREE FROM ANY S/S OF BLOOD TRANSFUSION REACTION. WILL CONTINUE TO CLOSELY MONITOR
[2017-11-15 06:43] LABS: BASOPHILS % (AUTO) 0.2 % (0.0-2.0); HEMATOCRIT 29 % (39-51); HEMOGLOBIN 8.9 g/dL (13.5-17.5); LYMPHOCYTES % (AUTO) 6.3 % (20.0-44.0); MEAN CORPUSCULAR HGB CONC 31 g/dl (31.0-36.0); MEAN CORPUSCULAR VOLUME 83 fL (80-96); MONOCYTES % (AUTO) 6.5 % (2.0-12.0); NEUTROPHILS # (AUTO) 27.3 /CMM (1.8-8.9); PLATELET COUNT (AUTO) 619 /CMM (150-450); RDW COEFFICIENT OF VARIATION 20.7 (11.5-15.0); RED BLOOD CELL COUNT(AUTO) 3.49 MIL/uL (4.5-6.0)
[2017-11-15 06:53] LABS: CALCIUM, SERUM 8.6 mg/dL (8.5-10.1); CREATININE 0.8 mg/dL (0.6-1.3); MAGNESIUM 1.8 mg/dL (1.8-2.4); PHOSPHORUS 2.7 mg/dL (2.5-4.9); POTASSIUM 3.8 mmol/L (3.5-5.1)
--- NOTE | 2017-11-15 07:00 | NUR ---
MANUAL QA TESTER CLOSING NOTES PATIENT RESTING IN BED, SLEEPING AT THIS TIME, APPEARS COMFORTABLE. LEVOPHED DRIP RUNNING THROUGH JOSH PICC, CURRENTLY @ 5MCG/MIN. TITRATED DOWN FROM 16MCG/MIN AT THE START OF THE SHIFT. WILL ENDORSE THE PATIENT TO THE AM SHIFT NURSE FOR CONTINUITY OF CARE
[2017-11-15 07:06] LABS: WHITE BLOOD COUNT (AUTO) 31.4 K/uL (4.3-11.0)
--- NOTE | 2017-11-15 07:12 | NUR ---
RN INITIAL NOTES: Rec'd pt on bed, not in any distress, A/O x 2, expresses his needs via sounds. On MV via trach, sating at 100% w/ current settings. On telemonitor, SR 82bpm. Has JOSH PICC line w/ Levophed x 5 mcg/min infusing well, has R hand G20 & LFA G20 SL, all flushing well, no s/sx of infection/infiltration noted. Has GT patent & intact, no residual noted. Has Colostomy bag in place. Has nephrostomy tube patent & intact. Has FC draining to BSB. Isolation prec observed. Provided comfort & safety measures. Bed kept low & in locked pos. Call light placed w/in reach. Will cont to monitor & attend pt needs.
[2017-11-15] MEDS: GLUCERNA 1.2 1,000 ML BOTTLE GT PRN (08:13)
[2017-11-15] MEDS: ZINC SULFATE 220 MG CAPSULE PO SCH (08:32)
[2017-11-15] MEDS: CALCIUM CARBONATE 500 MG TAB.CHEW PO SCH ×3 (08:32→16:13)
[2017-11-15] MEDS: ASCORBIC ACID 500 MG TABLET PO SCH (08:32)
[2017-11-15] MEDS: BACLOFEN (10 MG) 10 MG TABLET GT SCH ×4 (08:33→20:57)
[2017-11-15] MEDS: MULTIVIT, IRON, MIN NO. 8, FA 1 TAB PO SCH (08:33)
[2017-11-15] MEDS: METHADONE HCL 10 MG TABLET GT SCH (08:33)
[2017-11-15] MEDS: HYDROCORTISONE SOD SUCCINATE 100 MG/2 ML VIAL IV SCH ×3 (08:33→16:13)
[2017-11-15] MEDS: ESCITALOPRAM OXALATE (10 MG) 10 MG TABLET GT SCH (08:33)
[2017-11-15] MEDS: ACIDOPHILUS/BULGARICUS 1 EACH TAB.CHEW GT SCH ×3 (08:33→16:18)
[2017-11-15] MEDS: GABAPENTIN 300 MG CAPSULE GT SCH ×3 (08:33→16:13)
[2017-11-15 08:36] LABS: ABG BASE EXCESS 5.2 mmol/L; ABG OXYGEN SATURATION 94.7 % (92.0-98.5); ABG PCO2 44.4 mmHg (35.0-45.0); ABG PH 7.445 (7.350-7.450); ABG PO2 74.2 mmHg (75.0-100.0); AaDO2 159.9 mmHg; COHb 0.3 % (0.5-1.5); MetHb 1.4 % (0.0-1.5); O2Hb 93.1 % (94.0-97.0); PEEP,BG 0 cm H2O; SITE, ABG Right Radial; VT, ABG 450 mL
[2017-11-15] MEDS: CALCITRIOL 0.25 MCG CAPSULE PO SCH (08:36)
[2017-11-15] MEDS: FAMOTIDINE (20 MG) 20 MG TABLET GT SCH ×2 (08:38→20:57)
[2017-11-15] MEDS: CLOTRIMAZOLE 1% 15 GM TUBE TP SCH ×6 (08:39→21:00)
[2017-11-15] MEDS: HYDROGEN PEROXIDE 480 ML BOTTLE TP SCH ×2 (08:39→20:58)
[2017-11-15] MEDS: DAKINS QUARTER STRENGTH (0.125%) 480 ML BOTTLE TOP SCH ×2 (08:40→20:59)
[2017-11-15] MEDS: MINERAL OIL/PETROL OINT 396 GM JAR TP SCH ×2 (08:40→20:59)
[2017-11-15 09:58] LABS: BAND % (MANUAL) 1 % (0.0-5.0); LYMPHOCYTES % (MANUAL) 7 % (16-48); MONOCYTES % (MANUAL) 5 % (0-11.0); NEUTROPHILS % (MANUAL) 87 (42-76)
--- NOTE | 2017-11-15 10:00 | NUR ---
Pt seen & examined by Dr. Sterling.
[2017-11-15] MEDS: ALBUTEROL HALF STRENGTH 1.25 MG/3 ML VIAL.NEB IH PRN ×2 (11:02→15:30)
[2017-11-15] MEDS: ACETYLCYSTEINE 10% SOLN 400 MG/4 ML VIAL NEB SCH ×2 (11:02→15:30)
--- NOTE | 2017-11-15 11:15 | NUR ---
Pt seen & examined by CARLI Mcknight.
[2017-11-15] MEDS: ACETAMINOPHEN 325 MG TABLET PO PRN (12:28)
[2017-11-15] MEDS: IV D5/ 0.9% NACL 1,000 ML IV PRN (13:00)
[2017-11-15] MEDS: HYDROGEL DRESSING 90 GM TUBE TP SCH (15:09)
--- NOTE | 2017-11-15 17:30 | NUR ---
Pt seen & examined by CARLI Rojo.
--- NOTE | 2017-11-15 18:59 | NUR ---
RN CLOSING NOTES: No acute changes noted w/in shift. Pt tolerated MV settings via trach, no SOB. On telemonitor, still SR. JOSH PICC line w/ D5Ns x 50cc/hr infusing well. R hand G20 & LFA G20 SL, kept patent & intact w/ no s/sx of infection/infiltration noted. GT kept patent & intact, w/ no residual noted while on Glucerna 1.2 x 75 cc/hr infusing well. Colostomy bag kept in place. Nephrostomy tube kept patent & intact. FC kept draining to BSB. Isolation prec observed at all times. Provided comfort & safety measures. Bed kept low & in locked pos. Call light placed w/in reach. Will endorse to PM RN for ARLENE.
--- NOTE | 2017-11-15 19:40 | NUR ---
RN NOTES RECEIVED PATIENT AWAKE ALERT ORIENTED X 3, MOUTH WORDS BUT HARDLY UNDERSTAND, WITH TRACH AND VENT SETTING TOLERATING WELL. BLUEPRINTER REVEALS SINUS RHYTHM WITH BBB AND OCCASIONAL PVCs. GTF TOLERATED WELL PATENCY CHECKED. RIGHT NEPHROSTOMY TUBE PATENT AND INTACT WITH LITTLE LEAKED., DRAINING CLEAR FLUID TO DRAINAGE BAG. F/C INTACT, DRAINING CLEAR YELLOW URINE VIA GRAVITY. WITH COLOSTOMY BAG WITH YELLOW SOFT COLOR STOOL. KEPT PT CLEAN AND DRY VSS. WILL CONTINUE TO MONITOR.
--- NOTE | 2017-11-15 20:07 | NUR ---
CPT DONE ON LEFT SIDE. PT DID NOT TOLERATE AFTER 2 MINS. ASKED ME TO STOP.
--- NOTE | 2017-11-15 20:42 | NUR ---
RECEIVED PT TRACHED AWAKE ON VENT. NO RESP DISTRESS. PT TOLERATING VENT SETTINGS. SX'D FOR MOD AMT OF YELLOW SECRETIONS. VENT ALARMS SET AND AUDIBLE. AMBU BAG AT BEDSIDE. VENT PLUGGED INTO RED OUTLET. TRACH SECURE, CUFF CIVIL RIGHTS INVESTIGATOR. CPT ORDER ON LEFT LUNG. WILL CONTINUE TO MONITOR. Addendum: 11/15/17 at 2042 by LIANNA DENNIS RT Amended: Links added.
[2017-11-15] MEDS: POLYETHYLENE GLYCOL 3350 17 GM POWD.PACK GT SCH (21:00)
[2017-11-15] MEDS: ATORVASTATIN 10 MG TABLET GT SCH (21:00)
[2017-11-15] MEDS: PROSOURCE / PROSTAT (PYXIS) 30 ML UDC GT SCH (21:22)
[2017-11-16] VITALS (25 sets, daily range): BP systolic 112–144; BP diastolic 52–85
[2017-11-16] MEDS: ACETYLCYSTEINE 10% SOLN 400 MG/4 ML VIAL NEB SCH ×4 (00:03→23:29)
[2017-11-16] MEDS: VANCOMYCIN 1 GM in IV D5W 250 ML IV SCH (01:09)
[2017-11-16] MEDS: HYDROCODONE/APAP 5/325MG 1 EACH TABLET PO PRN (01:43)
[2017-11-16 04:23] LABS: BASOPHILS % (AUTO) 0.1 % (0.0-2.0); HEMATOCRIT 24 % (39-51); HEMOGLOBIN 7.8 g/dL (13.5-17.5); LYMPHOCYTES # (AUTO) 1.6 /CMM (0.8-4.8); LYMPHOCYTES % (AUTO) 8.4 % (20.0-44.0); MEAN CORPUSCULAR HGB CONC 32 g/dl (31.0-36.0); MEAN CORPUSCULAR VOLUME 81 fL (80-96); MONOCYTES % (AUTO) 5.5 % (2.0-12.0); NEUTROPHILS # (AUTO) 16.4 /CMM (1.8-8.9); PLATELET COUNT (AUTO) 555 /CMM (150-450); RDW COEFFICIENT OF VARIATION 19.8 (11.5-15.0); RED BLOOD CELL COUNT(AUTO) 3.03 MIL/uL (4.5-6.0)
[2017-11-16 04:41] LABS: CALCIUM, SERUM 8.3 mg/dL (8.5-10.1); CREATININE 0.8 mg/dL (0.6-1.3); MAGNESIUM 1.7 mg/dL (1.8-2.4); PHOSPHORUS 1.6 mg/dL (2.5-4.9); POTASSIUM 3.3 mmol/L (3.5-5.1)
[2017-11-16] MEDS: MEROPENEM 500 MG in IV NS 0.9% 50 ML IV SCH ×2 (04:47→13:26)
--- NOTE | 2017-11-16 07:00 | NUR ---
RN NOTES PATIENT REMAINED IN STABLE CONDITION AFEBRILE. VSS. TRACH AND VENT SETTING TOLERATED WELL. AOX2-3. NO SIGNIFICANT CHANGES NOTED. REMAINED SR WITH BBB AND PVC'S. ALL DUE MEDICINE TOLERATED WELL. GTF INTACT. RIGHT NEPHROSTOMY TUBE INTACT NO LEAKED., F/C DRAINED WELL. COLOSTOMY BAG WITH ZERO OUTPUT. WILL ENDORSED CONTINUITY OF CARE TO AM NURSE.
--- NOTE | 2017-11-16 07:14 | NUR ---
WOUND CARE CONSULT WOUND CARE RECEIVED CONSULT FOR MULTIPLE WOUNDS. WOUND CARE WILL DEFER CONSULTS AND ALL TREATMENT PLANS TO SURGICAL TEAM WHO ARE CURRENTLY FOLLOWING. PATIENT WITH KRYSTA AT 8, ALL PRESSURE ULCER PREVENTION MEASURES ARE NOTED TO BE IN PLACE AT THIS TIME. WILL SEE PRN.
--- NOTE | 2017-11-16 07:31 | NUR ---
INITIAL CHAINSTITCH SEWING MACHINE OPERATOR NOTE RCVD PT AWAKE AND ALERT, SR ON TELE, TOLERATING ORDERED VENT SETTINGS SHOWING NO S/O DISTRESS/PAIN AT THIS TIME. COLOSTOMY BAG EMPTY, RIGHT NEPHROSTOMY OBSERVED WITH MINIMAL CLEAR URINE. GUZMAN TO GRAVITY DRAINING CLOUDY, YELLOW URINE. IV SITES C/D/I/PATENT. NO S/O INFILTRATION/PHLEBITIS OBSERVED UPON FLUSHING. G-TUBE CLAMPED AT THIS TIME PENDING DIETARY TO DISPENSE TUBE FEEDING, WILL F/U. WILL CONTINUE TO MONITOR PT FOR SAFETY AND COMFORT. CALL LIGHT WITHIN REACH. BED IN LOW AND LOCKED POSITION.
[2017-11-16] MEDS: GLUCERNA 1.2 1,000 ML BOTTLE GT PRN (08:37)
[2017-11-16] MEDS: CALCITRIOL 0.25 MCG CAPSULE PO SCH (08:38)
[2017-11-16] MEDS: MULTIVIT, IRON, MIN NO. 8, FA 1 TAB PO SCH (08:38)
[2017-11-16] MEDS: ZINC SULFATE 220 MG CAPSULE PO SCH (08:38)
[2017-11-16] MEDS: BACLOFEN (10 MG) 10 MG TABLET GT SCH ×4 (08:38→21:16)
[2017-11-16] MEDS: CALCIUM CARBONATE 500 MG TAB.CHEW PO SCH ×3 (08:38→17:43)
[2017-11-16] MEDS: ASCORBIC ACID 500 MG TABLET PO SCH (08:38)
[2017-11-16] MEDS: ESCITALOPRAM OXALATE (10 MG) 10 MG TABLET GT SCH (08:38)
[2017-11-16] MEDS: HYDROCORTISONE SOD SUCCINATE 100 MG/2 ML VIAL IV SCH ×2 (08:38→17:43)
[2017-11-16] MEDS: FAMOTIDINE (20 MG) 20 MG TABLET GT SCH ×2 (08:39→21:16)
[2017-11-16] MEDS: GABAPENTIN 300 MG CAPSULE GT SCH ×3 (08:39→17:43)
[2017-11-16] MEDS: METHADONE HCL 10 MG TABLET GT SCH (08:39)
[2017-11-16] MEDS: ACIDOPHILUS/BULGARICUS 1 EACH TAB.CHEW GT SCH ×3 (08:39→17:43)
[2017-11-16] MEDS: DAKINS QUARTER STRENGTH (0.125%) 480 ML BOTTLE TOP SCH ×2 (08:43→21:31)
[2017-11-16] MEDS: MINERAL OIL/PETROL OINT 396 GM JAR TP SCH ×2 (08:44→22:16)
[2017-11-16] MEDS: HYDROGEL DRESSING 90 GM TUBE TP SCH (08:44)
[2017-11-16] MEDS: CLOTRIMAZOLE 1% 15 GM TUBE TP SCH ×6 (08:45→22:20)
[2017-11-16] MEDS: HYDROGEN PEROXIDE 480 ML BOTTLE TP SCH ×2 (08:45→22:19)
--- NOTE | 2017-11-16 09:19 | NUR ---
hhn deferred zero distress noted rt busy with pt care
[2017-11-16] MEDS ORDERED: POTASSIUM CHLORIDE 20 MEQ POWDER PACKET GT SCH (09:30)
[2017-11-16] MEDS: Magnesium 1GM/D5W 100ML PREMIX 100 ML IV SCH ×2 (09:55→10:49)
--- NOTE | 2017-11-16 10:30 | NUR ---
PHYSICIAN AIDE NOTE CARLI MAYORGA CONTACTED REGARDING PT'S MICRO LAB RESULTS TO ADJUST ABX.
[2017-11-16] MEDS: CEFEPIME 2 GM in IV D5W 100 ML IV SCH ×2 (10:59→21:30)
--- NOTE | 2017-11-16 11:30 | NUR ---
FENCE INSTALLER HELPER NOTE PT TRANSFERRED TO [facility] IN STABLE CONDITION, SHOWING NO S/O DISTRESS/PAIN AT THE TIME. SR ON TELE. TOLERATING ORDERED VENT SETTINGS. PT TRANSFERRED PER PROTOCOL WITH RT AND RN AT BEDSIDE. REPORT GIVEN TO BRO ESCOBAR OVER THE PHONE PRIOR TO TRANSFER. PT'S MEDICATIONS AND BELONGINGS TRANSPORTED WITH PT.
--- NOTE | 2017-11-16 11:45 | NUR ---
RN NOTE PATIENT RECEIVED TRANSFER FROM ICU. REPORT RECEIVED FROM BRO DE LUNA. SAFETY PRECAUTIONS IMPLEMENTED, BED IN LOCKED, LOW POSITION WITH TWO SIDE RAILS UP. WILL CONTINUE TO MONITOR CLOSELY
[2017-11-16] MEDS ORDERED: LIDOCAINE 1%-EPI 1:100,000 20 ML VIAL TP ONE (13:00)
[2017-11-16] MEDS ORDERED: SILVER NITRATE APPLICATOR 1 EA BOX TP ONE (13:00)
[2017-11-16] MEDS: HYDROCODONE/APAP 5/325MG 1 EACH TABLET GT PRN (13:24)
[2017-11-16] MEDS: VANCOMYCIN 0.75 GM in IV D5W 250 ML IV SCH (15:17)
[2017-11-16] MEDS ORDERED: NEUTRA PHOS 1 POWD.PACKET GT ONE (15:30)
--- NOTE | 2017-11-16 19:30 | NUR ---
[facility] NOTES RECEIVED PTON VENT PER TRACH W/FI02 35% SATURATION OF 100%.ATTEMPTED TO SUCTION BUT PT CONTINUOUSLY SHAKING HEADCOLOSTOMY INTACT W/ SCANT DRAINAGE.GUZMAN IN PLACE W/YELLOW-JUDY URINE.MULTIPLE WOUNDS TO SACRAL,BUTTOCKS.MONITOR SHOWS SR.
[2017-11-16] MEDS: ATORVASTATIN 10 MG TABLET GT SCH (21:28)
[2017-11-16] MEDS: POLYETHYLENE GLYCOL 3350 17 GM POWD.PACK GT SCH (22:11)
[2017-11-16] MEDS: PROSOURCE / PROSTAT (PYXIS) 30 ML UDC GT SCH (22:14)
[2017-11-17] VITALS: BP 124/75
[2017-11-17] MEDS: VANCOMYCIN 0.75 GM in IV D5W 250 ML IV SCH ×2 (00:40→12:18)
[2017-11-17] MEDS: GLUCERNA 1.2 1,000 ML BOTTLE GT PRN ×2 (01:30→18:03)
[2017-11-17 04:00] VITALS: BP 132/73
[2017-11-17] MEDS: CEFEPIME 2 GM in IV D5W 100 ML IV SCH ×3 (05:35→21:22)
--- NOTE | 2017-11-17 06:00 | NUR ---
[facility] NOTES VITAL SIGNS STABLE.REFUSED BED BATH AND DRESSING CHANGE EVEN W/ MUCH ENCOURAGEMENT.TRACH CARE DONE.
[2017-11-17 06:53] LABS: CALCIUM, SERUM 8.3 mg/dL (8.5-10.1); CREATININE 0.7 mg/dL (0.6-1.3); PHOSPHORUS 2.6 mg/dL (2.5-4.9); POTASSIUM 3.4 mmol/L (3.5-5.1)
--- NOTE | 2017-11-17 07:10 | NUR ---
[facility] RN OPENING NOTE RECEIVED REPORT FROM PM NURSE.PATIENT IS ALERT.ABLE TO MOUTH WORDS.ON VENTILATOR.TOLERATING SETTINGS ORDERED.NO SOB NO DISTRESS NOTED AT THIS TIME.DENIED CHEST PAIN.ON TELE MONITOR SR 62.IV ON ROSEANNE PICC LINE ,INTACT AND PATENT.ONGOING D2NS AT 50CC/HR.ON GTF.GUZMAN CATH DARNING CLEAR YELLOW URINE.HAS NEPHROSTOMY TUBE.BED IS LOCKED AND IN LOW POSITION.CALL LIGHT IN REACH.HOB ELEVATED.SRX3.WILL CONTINUE TO MONITOR.
[2017-11-17 08:00] VITALS: BP 126/71
[2017-11-17] MEDS: ALBUTEROL HALF STRENGTH 1.25 MG/3 ML VIAL.NEB IH PRN ×2 (08:36→15:39)
[2017-11-17] MEDS: ACETYLCYSTEINE 10% SOLN 400 MG/4 ML VIAL NEB SCH ×3 (08:36→23:23)
[2017-11-17] MEDS: ZINC SULFATE 220 MG CAPSULE PO SCH (08:39)
[2017-11-17] MEDS: GABAPENTIN 300 MG CAPSULE GT SCH ×3 (08:39→17:34)
[2017-11-17] MEDS: ACIDOPHILUS/BULGARICUS 1 EACH TAB.CHEW GT SCH ×3 (08:39→17:34)
[2017-11-17] MEDS: MULTIVIT, IRON, MIN NO. 8, FA 1 TAB PO SCH (08:39)
[2017-11-17] MEDS: CALCITRIOL 0.25 MCG CAPSULE PO SCH (08:39)
[2017-11-17] MEDS: METHADONE HCL 10 MG TABLET GT SCH (08:39)
[2017-11-17] MEDS: HYDROCORTISONE SOD SUCCINATE 100 MG/2 ML VIAL IV SCH (08:39)
[2017-11-17] MEDS: BACLOFEN (10 MG) 10 MG TABLET GT SCH ×4 (08:39→21:22)
[2017-11-17] MEDS: CALCIUM CARBONATE 500 MG TAB.CHEW PO SCH ×3 (08:39→17:34)
[2017-11-17] MEDS: ESCITALOPRAM OXALATE (10 MG) 10 MG TABLET GT SCH (08:39)
[2017-11-17] MEDS: FAMOTIDINE (20 MG) 20 MG TABLET GT SCH ×2 (08:39→21:22)
[2017-11-17] MEDS: ASCORBIC ACID 500 MG TABLET PO SCH (08:39)
[2017-11-17] MEDS: DAKINS QUARTER STRENGTH (0.125%) 480 ML BOTTLE TOP SCH ×2 (08:42→21:25)
[2017-11-17] MEDS: MINERAL OIL/PETROL OINT 396 GM JAR TP SCH ×2 (08:42→21:25)
[2017-11-17] MEDS: HYDROGEL DRESSING 90 GM TUBE TP SCH (08:42)
[2017-11-17] MEDS: HYDROGEN PEROXIDE 480 ML BOTTLE TP SCH ×2 (08:42→21:23)
[2017-11-17] MEDS: CLOTRIMAZOLE 1% 15 GM TUBE TP SCH ×6 (08:43→21:24)
--- NOTE | 2017-11-17 09:00 | NUR ---
[facility] RN NOTE SEEN BY CARLI TORRES FOR RENÉ PATEL,UPDATED PATIENT CONDITION AND LABS.WOUND DEBRIDEMENT TODAY.GOT NEW ORDER FOR LABS.
[2017-11-17 09:34] LABS: HEMATOCRIT 24 % (39-51); HEMOGLOBIN 7.6 g/dL (13.5-17.5); MEAN CORPUSCULAR VOLUME 81 fL (80-96); WHITE BLOOD COUNT (AUTO) 12.3 K/uL (4.3-11.0)
[2017-11-17 09:35] LABS: BASOPHILS # (AUTO) 0.1 /CMM (0.0-0.2); BASOPHILS % (AUTO) 0.6 % (0.0-2.0); EOSINOPHILS % (AUTO) 0.1 % (0.0-6.0); LYMPHOCYTES # (AUTO) 2.2 /CMM (0.8-4.8); LYMPHOCYTES % (AUTO) 17.8 % (20.0-44.0); MEAN CORPUSCULAR HGB CONC 31 g/dl (31.0-36.0); MONOCYTES # (AUTO) 0.9 /CMM (0.1-1.30); MONOCYTES % (AUTO) 7.6 % (2.0-12.0); NEUTROPHILS # (AUTO) 9.1 /CMM (1.8-8.9); NEUTROPHILS % (AUTO) 73.9 % (43.0-81.0); PLATELET COUNT (AUTO) 453 /CMM (150-450); RDW COEFFICIENT OF VARIATION 21.6 (11.5-15.0)
[2017-11-17] MEDS ORDERED: POTASSIUM CHLORIDE 20 MEQ POWDER PACKET GT SCH (11:00)
[2017-11-17 12:00] VITALS: BP 121/71
[2017-11-17] MEDS: HYDROCODONE/APAP 5/325MG 1 EACH TABLET GT PRN (12:49)
--- NOTE | 2017-11-17 15:53 | NUR ---
RT NOTE RECEIVED PT TRACHED AWAKE ON VENT. NO RESP DISTRESS. PT TOLERATING VENT SETTINGS. SX'D FOR MOD AMT OF YELLOW SECRETIONS. VENT ALARMS SET AND AUDIBLE. AMBU BAG AT BEDSIDE. VENT PLUGGED INTO RED OUTLET. TRACH SECURE, CUFF OBIEE ARCHITECT. WILL CONTINUE TO MONITOR.
[2017-11-17 16:00] VITALS: BP 122/72
[2017-11-17] MEDS: IV D5/ 0.9% NACL 1,000 ML IV PRN (18:04)
--- NOTE | 2017-11-17 19:35 | NUR ---
[facility] RN CLOSING NOTE PATIENT IS ALERT.ABLE TO MOUTH WORDS.ON VENTILATOR.TOLERATING SETTINGS ORDERED.NO SOB NO DISTRESS NOTED AT THIS TIME.DENIED CHEST PAIN.ON TELE MONITOR SR 62.IV ON ROSEANNE PICC LINE ,INTACT AND PATENT.ONGOING D2NS AT 50CC/HR.ON GTF.GUZMAN CATH DARNING CLEAR YELLOW URINE.HAS NEPHROSTOMY TUBE LEAKING.C D AREA SUPERVISOR MELISSA MADE AWARE.BED IS LOCKED AND IN LOW POSITION.CALL LIGHT IN REACH.HOB ELEVATED.SRX3.ENDORSED TO PM NURSE FOR ARLENE.
[2017-11-17 20:00] VITALS: BP 122/70
--- NOTE | 2017-11-17 20:00 | NUR ---
[facility] RN OPENING NOTES REPORT RECEIVED FROM CLARKE CRABTREE. PATIENT A/A/O X2-3 & ABLE TO MOUTH WORDS. BREATHING EVEN & UNLABORED W/ TRACH INTACT & TOLERATING VENT SETTINGS AC 12, TV 450, FIO2 40%, PEEP 0. ON TELE W/ SINUS RHYTHM, HR 60. NO RESPIRATORY DISTRESS NOTED. RIGHT UPPER ARM PICC LINE & RIGHT HAND IV INTACT & PATENT W/ DRESSING CDI & IVF D5 NS INFUSING WELL @ 50 ML/HR. COLOSTOMY BAG IN PLACE & NEPHROSTOMY DRAINING YELLOW URINE. G-TUBE FLUSHING WELL W/ GTF GLUCERNA RUNNING @ 75 ML/HR. MINIMAL RESIDUAL NOTED BUT LESS THAN 300ML. NO S/S OF PAIN OR DISCOMFORT @ THIS TIME. SAFETY MEASURES IN PLACE W/ SIDE RAILS UP & BED LOCKED & IN LOWEST POSITION. WILL CONTINUE TO MONITOR.
[2017-11-17] MEDS: ATORVASTATIN 10 MG TABLET GT SCH (21:22)
[2017-11-17] MEDS: POLYETHYLENE GLYCOL 3350 17 GM POWD.PACK GT SCH (21:22)
[2017-11-17] MEDS: MUPIROCIN OINT 2% 22 GM TUBE SCH (21:22)
[2017-11-17] MEDS: PROSOURCE / PROSTAT (PYXIS) 30 ML UDC GT SCH (21:41)
[2017-11-18] VITALS: BP 130/69
[2017-11-18] MEDS: VANCOMYCIN 0.75 GM in IV D5W 250 ML IV SCH ×2 (02:13→14:51)
--- NOTE | 2017-11-18 03:31 | NUR ---
RT Pt trach on [facility] vent on ordered settings. No resp distress noted. svn given inline. trach secure and patent. Addendum: 11/18/17 at 0332 by YESICA ROACH RT Amended: Links added.
[2017-11-18 04:00] VITALS: BP 129/77
[2017-11-18] MEDS: CEFEPIME 2 GM in IV D5W 100 ML IV SCH ×3 (05:45→21:24)
[2017-11-18 06:33] LABS: BASOPHILS % (AUTO) 0.2 % (0.0-2.0); EOSINOPHILS % (AUTO) 1.2 % (0.0-6.0); HEMATOCRIT 24 % (39-51); HEMOGLOBIN 7.5 g/dL (13.5-17.5); LYMPHOCYTES # (AUTO) 1.9 /CMM (0.8-4.8); LYMPHOCYTES % (AUTO) 16.6 % (20.0-44.0); MEAN CORPUSCULAR HGB CONC 31 g/dl (31.0-36.0); MEAN CORPUSCULAR VOLUME 83 fL (80-96); MONOCYTES # (AUTO) 0.7 /CMM (0.1-1.30); MONOCYTES % (AUTO) 6.5 % (2.0-12.0); NEUTROPHILS # (AUTO) 8.6 /CMM (1.8-8.9); NEUTROPHILS % (AUTO) 75.5 % (43.0-81.0); PLATELET COUNT (AUTO) 516 /CMM (150-450); RED BLOOD CELL COUNT(AUTO) 2.91 MIL/uL (4.5-6.0); WHITE BLOOD COUNT (AUTO) 11.4 K/uL (4.3-11.0)
[2017-11-18 06:45] LABS: CALCIUM, SERUM 8.4 mg/dL (8.5-10.1); CREATININE 0.7 mg/dL (0.6-1.3); MAGNESIUM 1.9 mg/dL (1.8-2.4); PHOSPHORUS 3.1 mg/dL (2.5-4.9); POTASSIUM 3.5 mmol/L (3.5-5.1)
[2017-11-18] MEDS: ACETYLCYSTEINE 10% SOLN 400 MG/4 ML VIAL NEB SCH ×2 (07:53→16:00)
[2017-11-18 08:00] VITALS: BP 124/80
[2017-11-18] MEDS: ACIDOPHILUS/BULGARICUS 1 EACH TAB.CHEW GT SCH ×3 (08:33→16:37)
[2017-11-18] MEDS: FAMOTIDINE (20 MG) 20 MG TABLET GT SCH ×2 (08:33→21:24)
[2017-11-18] MEDS: ESCITALOPRAM OXALATE (10 MG) 10 MG TABLET GT SCH (08:33)
[2017-11-18] MEDS: GABAPENTIN 300 MG CAPSULE GT SCH ×3 (08:33→16:37)
[2017-11-18] MEDS: ASCORBIC ACID 500 MG TABLET PO SCH (08:33)
[2017-11-18] MEDS: METHADONE HCL 10 MG TABLET GT SCH (08:34)
[2017-11-18] MEDS: MULTIVIT, IRON, MIN NO. 8, FA 1 TAB PO SCH (08:34)
[2017-11-18] MEDS: ZINC SULFATE 220 MG CAPSULE PO SCH (08:34)
[2017-11-18] MEDS: CALCIUM CARBONATE 500 MG TAB.CHEW PO SCH ×3 (08:34→16:37)
[2017-11-18] MEDS: BACLOFEN (10 MG) 10 MG TABLET GT SCH ×4 (08:34→21:24)
[2017-11-18] MEDS: HYDROCORTISONE SOD SUCCINATE 100 MG/2 ML VIAL IV SCH (08:35)
[2017-11-18] MEDS: CALCITRIOL 0.25 MCG CAPSULE PO SCH (08:36)
[2017-11-18] MEDS: HYDROGEN PEROXIDE 480 ML BOTTLE TP SCH ×2 (08:37→21:29)
[2017-11-18] MEDS: MINERAL OIL/PETROL OINT 396 GM JAR TP SCH ×2 (08:37→21:29)
[2017-11-18] MEDS: HYDROGEL DRESSING 90 GM TUBE TP SCH (08:38)
[2017-11-18] MEDS: MUPIROCIN OINT 2% 22 GM TUBE SCH ×2 (08:39→21:30)
[2017-11-18] MEDS: CLOTRIMAZOLE 1% 15 GM TUBE TP SCH ×6 (08:39→21:28)
[2017-11-18] MEDS: DAKINS QUARTER STRENGTH (0.125%) 480 ML BOTTLE TOP SCH ×2 (08:47→21:29)
[2017-11-18] MEDS: GLUCERNA 1.2 1,000 ML BOTTLE GT PRN (09:58)
[2017-11-18 12:00] VITALS: BP 124/80
--- NOTE | 2017-11-18 12:00 | NUR ---
RN NOTE PT NOTED TO HAVE LEAKING GUZMAN AND NEPROSTOMY TUBE PORT, RENÉ PATEL NOTIFIED, NO NEW ORDERS AT THIS TIME.
[2017-11-18] MEDS: HYDROCODONE/APAP 5/325MG 1 EACH TABLET GT PRN (13:15)
[2017-11-18 16:00] VITALS: BP 108/53
--- NOTE | 2017-11-18 19:16 | NUR ---
PT ON VENT A/C MODE. PT TERRANCE WELL WITH NO RESPIRATORY DISTRESS NOTED ATT. PT HAS A TRACH WHICH IS INTACT, PATENT, AND SECURE. PT BREATH SOUNDS COURSE SX PRN RETURNING SMALL WHITE/PALE YELLOW SECRETIONS. VENT ALARMS CHECKED FOUND TO BE FUNCTIONAL, AUDIBLE, AND WITHIN LIMITS. TX MD ORDERED. VENT PLUGGED INTO RED OUTLET. BVM AT BEDSIDE.
[2017-11-18 20:00] VITALS: BP 95/49
--- NOTE | 2017-11-18 20:07 | NUR ---
[facility] RN OPENING NOTES REPORT RECEIVED FROM JIA CRABTREE. PATIENT A/A/O X2-3 & ABLE TO MOUTH WORDS. BREATHING EVEN & UNLABORED W/ TRACH INTACT & TOLERATING VENT SETTINGS AC 12, TV 450, FIO2 40%, PEEP 0. ON TELE W/ SINUS RHYTHM, HR 60. NO RESPIRATORY DISTRESS NOTED. RIGHT UPPER ARM PICC LINE & RIGHT HAND IV INTACT & PATENT W/ DRESSING CDI & IVF D5 NS INFUSING WELL @ 50 ML/HR. COLOSTOMY BAG IN PLACE & GUZMAN CATH DRAINING YELLOW URINE. NEPHROSTOMY W/ LITTLE SANGUINEOUS OUTPUT & SOME LEAKING NOTED. G-TUBE FLUSHING WELL W/ GTF GLUCERNA RUNNING @ 75 ML/HR. MINIMAL RESIDUAL NOTED BUT LESS THAN 300ML. NO S/S OF PAIN OR DISCOMFORT @ THIS TIME. TURNED & REPOSITIONED FRO COMFORT. SAFETY MEASURES IN PLACE W/ SIDE RAILS UP & BED LOCKED & IN LOWEST POSITION. WILL CONTINUE TO MONITOR.
[2017-11-18] MEDS: IV D5/ 0.9% NACL 1,000 ML IV PRN (21:24)
[2017-11-18] MEDS: ATORVASTATIN 10 MG TABLET GT SCH (21:24)
[2017-11-18] MEDS: POLYETHYLENE GLYCOL 3350 17 GM POWD.PACK GT SCH (21:25)
[2017-11-18] MEDS: PROSOURCE / PROSTAT (PYXIS) 30 ML UDC GT SCH (21:29)
[2017-11-19] VITALS (7 sets, daily range): BP systolic 107–136; BP diastolic 58–75
[2017-11-19] MEDS: ACETYLCYSTEINE 10% SOLN 400 MG/4 ML VIAL NEB SCH ×3 (00:07→15:50)
[2017-11-19] MEDS: VANCOMYCIN 0.75 GM in IV D5W 250 ML IV SCH (00:30)
[2017-11-19] MEDS: GLUCERNA 1.2 1,000 ML BOTTLE GT PRN ×2 (00:30→17:06)
[2017-11-19] MEDS: CEFEPIME 2 GM in IV D5W 100 ML IV SCH ×3 (05:34→21:03)
[2017-11-19 06:50] LABS: BASOPHILS # (AUTO) 0.1 /CMM (0.0-0.2); BASOPHILS % (AUTO) 0.5 % (0.0-2.0); EOSINOPHILS % (AUTO) 2.1 % (0.0-6.0); HEMATOCRIT 31 % (39-51); HEMOGLOBIN 9.5 g/dL (13.5-17.5); LYMPHOCYTES % (AUTO) 27.3 % (20.0-44.0); MEAN CORPUSCULAR HGB CONC 31 g/dl (31.0-36.0); MEAN CORPUSCULAR VOLUME 83 fL (80-96); MONOCYTES # (AUTO) 0.8 /CMM (0.1-1.30); MONOCYTES % (AUTO) 7.8 % (2.0-12.0); NEUTROPHILS # (AUTO) 6.8 /CMM (1.8-8.9); NEUTROPHILS % (AUTO) 62.3 % (43.0-81.0); PLATELET COUNT (AUTO) 425 /CMM (150-450); RDW COEFFICIENT OF VARIATION 22.7 (11.5-15.0); RED BLOOD CELL COUNT(AUTO) 3.68 MIL/uL (4.5-6.0); WHITE BLOOD COUNT (AUTO) 10.8 K/uL (4.3-11.0)
[2017-11-19 07:27] LABS: CALCIUM, SERUM 8.7 mg/dL (8.5-10.1); CREATININE 0.7 mg/dL (0.6-1.3); PHOSPHORUS 3.4 mg/dL (2.5-4.9); POTASSIUM 4.2 mmol/L (3.5-5.1)
--- NOTE | 2017-11-19 08:29 | NUR ---
PT REC'D ON VENT TRACH'D, AWAKE AND ALERT. SPEEDER OPERATOR DONE. VENT SETTINGS PER MD ORDERS. PT SX'D, MINIMAL AMTS OF SEMI-THICK WHITE SECRETIONS. B/S BILAT. EQUAL AND COARSE. VENT PLUGGED INTO RED OUTLET. AMBU BAG AT HOB. VENT ALARMS SET AND AUDIBLE PER POLICY. Addendum: 11/19/17 at 0835 by MAURICE DIEZ RT Amended: Links added.
[2017-11-19] MEDS: CALCITRIOL 0.25 MCG CAPSULE PO SCH (08:56)
[2017-11-19] MEDS: CALCIUM CARBONATE 500 MG TAB.CHEW PO SCH ×3 (08:56→17:07)
[2017-11-19] MEDS: BACLOFEN (10 MG) 10 MG TABLET GT SCH ×4 (08:57→21:04)
[2017-11-19] MEDS: GABAPENTIN 300 MG CAPSULE GT SCH ×3 (08:57→17:07)
[2017-11-19] MEDS: ACIDOPHILUS/BULGARICUS 1 EACH TAB.CHEW GT SCH ×3 (08:57→17:07)
[2017-11-19] MEDS: ASCORBIC ACID 500 MG TABLET PO SCH (08:57)
[2017-11-19] MEDS: ZINC SULFATE 220 MG CAPSULE PO SCH (08:59)
[2017-11-19] MEDS: FAMOTIDINE (20 MG) 20 MG TABLET GT SCH ×2 (08:59→21:04)
[2017-11-19] MEDS: METHADONE HCL 10 MG TABLET GT SCH (08:59)
[2017-11-19] MEDS: ESCITALOPRAM OXALATE (10 MG) 10 MG TABLET GT SCH (08:59)
[2017-11-19] MEDS: HYDROCORTISONE SOD SUCCINATE 100 MG/2 ML VIAL IV SCH (09:00)
[2017-11-19] MEDS: MULTIVIT, IRON, MIN NO. 8, FA 1 TAB PO SCH (09:00)
[2017-11-19] MEDS: MUPIROCIN OINT 2% 22 GM TUBE SCH ×2 (09:13→21:13)
[2017-11-19] MEDS: CLOTRIMAZOLE 1% 15 GM TUBE TP SCH ×6 (09:17→21:15)
[2017-11-19] MEDS: MINERAL OIL/PETROL OINT 396 GM JAR TP SCH ×2 (09:18→21:14)
[2017-11-19] MEDS: DAKINS QUARTER STRENGTH (0.125%) 480 ML BOTTLE TOP SCH ×2 (09:19→21:13)
[2017-11-19] MEDS: HYDROGEL DRESSING 90 GM TUBE TP SCH (09:19)
[2017-11-19] MEDS: HYDROGEN PEROXIDE 480 ML BOTTLE TP SCH ×2 (09:20→21:15)
[2017-11-19] MEDS: COLISTIMETHATE SODIUM 150 MG VIAL NEB SCH ×2 (11:00→21:58)
[2017-11-19] MEDS: HYDROCODONE/APAP 5/325MG 1 EACH TABLET GT PRN (15:04)
--- NOTE | 2017-11-19 18:56 | NUR ---
RN NOTE PT'S NEPHROSTOMY REMAINED LEAKING FOR COUPLE DAY NOW, NO OUTPUT IN THE BAG LEAKAGE ESTIMATED TO BE AROUND 100 ML FOR DAY SHIFT, 1 ERNESTINA SATURATED. GUZMAN WELL LEAKES FROM PENIS BUT GOOD URINE OUTPUT IN THE BAG. MD NOTIFIED NO ACTION AT THIS TIME.
[2017-11-19] MEDS: PROSOURCE / PROSTAT (PYXIS) 30 ML UDC GT SCH (21:04)
[2017-11-19] MEDS: POLYETHYLENE GLYCOL 3350 17 GM POWD.PACK GT SCH (21:19)
[2017-11-19] MEDS: ATORVASTATIN 10 MG TABLET GT SCH (21:19)
[2017-11-20] VITALS: BP_SYST 131; BP_SYST 141; BP_DIAS 80; BP_DIAS 88
[2017-11-20] MEDS: ACETYLCYSTEINE 10% SOLN 400 MG/4 ML VIAL NEB SCH ×4 (00:06→23:15)
[2017-11-20] MEDS: IV D5/ 0.9% NACL 1,000 ML IV PRN ×2 (01:34→23:23)
[2017-11-20 04:00] VITALS: BP 146/94
[2017-11-20] MEDS: CEFEPIME 2 GM in IV D5W 100 ML IV SCH ×3 (05:42→22:02)
[2017-11-20] MEDS: GLUCERNA 1.2 1,000 ML BOTTLE GT PRN ×2 (05:43→23:39)
[2017-11-20 06:37] LABS: BASOPHILS # (AUTO) 0.1 /CMM (0.0-0.2); BASOPHILS % (AUTO) 0.5 % (0.0-2.0); EOSINOPHILS % (AUTO) 2.4 % (0.0-6.0); HEMATOCRIT 31 % (39-51); HEMOGLOBIN 9.7 g/dL (13.5-17.5); LYMPHOCYTES % (AUTO) 18.1 % (20.0-44.0); MEAN CORPUSCULAR HGB CONC 31 g/dl (31.0-36.0); MEAN CORPUSCULAR VOLUME 83 fL (80-96); MONOCYTES # (AUTO) 0.6 /CMM (0.1-1.30); MONOCYTES % (AUTO) 5.5 % (2.0-12.0); NEUTROPHILS # (AUTO) 8.2 /CMM (1.8-8.9); NEUTROPHILS % (AUTO) 73.5 % (43.0-81.0); PLATELET COUNT (AUTO) 467 /CMM (150-450); RDW COEFFICIENT OF VARIATION 22.8 (11.5-15.0); RED BLOOD CELL COUNT(AUTO) 3.76 MIL/uL (4.5-6.0); WHITE BLOOD COUNT (AUTO) 11.1 K/uL (4.3-11.0)
[2017-11-20 06:59] LABS: CALCIUM, SERUM 8.7 mg/dL (8.5-10.1); CREATININE 0.6 mg/dL (0.6-1.3); PHOSPHORUS 3.2 mg/dL (2.5-4.9); POTASSIUM 4.1 mmol/L (3.5-5.1)
[2017-11-20] MEDS: ALBUTEROL HALF STRENGTH 1.25 MG/3 ML VIAL.NEB IH PRN ×2 (07:27→23:15)
[2017-11-20] MEDS: IPRATROPIUM NEB FS 0.5 MG/2.5 ML AMPUL.NEB IH PRN ×2 (07:27→23:15)
[2017-11-20 08:00] VITALS: BP 113/65
[2017-11-20] MEDS: ESCITALOPRAM OXALATE (10 MG) 10 MG TABLET GT SCH (09:35)
[2017-11-20] MEDS: ZINC SULFATE 220 MG CAPSULE PO SCH (09:35)
[2017-11-20] MEDS: MULTIVIT, IRON, MIN NO. 8, FA 1 TAB PO SCH (09:35)
[2017-11-20] MEDS: METHADONE HCL 10 MG TABLET GT SCH (09:36)
[2017-11-20] MEDS: BACLOFEN (10 MG) 10 MG TABLET GT SCH ×4 (09:37→22:01)
[2017-11-20] MEDS: FAMOTIDINE (20 MG) 20 MG TABLET GT SCH ×2 (09:37→22:01)
[2017-11-20] MEDS: ACIDOPHILUS/BULGARICUS 1 EACH TAB.CHEW GT SCH ×3 (09:37→17:02)
[2017-11-20] MEDS: ASCORBIC ACID 500 MG TABLET PO SCH (09:37)
[2017-11-20] MEDS: CALCIUM CARBONATE 500 MG TAB.CHEW PO SCH ×3 (09:37→17:02)
[2017-11-20] MEDS: CALCITRIOL 0.25 MCG CAPSULE PO SCH (09:37)
[2017-11-20] MEDS: GABAPENTIN 300 MG CAPSULE GT SCH ×3 (09:37→17:02)
[2017-11-20] MEDS: COLISTIMETHATE SODIUM 150 MG VIAL NEB SCH ×2 (09:43→21:09)
[2017-11-20] MEDS: HYDROGEL DRESSING 90 GM TUBE TP SCH ×2 (09:46→22:04)
[2017-11-20] MEDS: MINERAL OIL/PETROL OINT 396 GM JAR TP SCH ×2 (09:46→22:05)
[2017-11-20] MEDS: HYDROGEN PEROXIDE 480 ML BOTTLE TP SCH ×2 (09:46→22:05)
[2017-11-20] MEDS: MUPIROCIN OINT 2% 22 GM TUBE SCH ×2 (09:47→22:02)
[2017-11-20] MEDS: CLOTRIMAZOLE 1% 15 GM TUBE TP SCH ×6 (09:47→22:07)
[2017-11-20 12:00] VITALS: BP 116/64
[2017-11-20] MEDS: HYDROCODONE/APAP 5/325MG 1 EACH TABLET PO PRN (14:10)
[2017-11-20] MEDS: DAKINS QUARTER STRENGTH (0.125%) 480 ML BOTTLE TOP SCH ×2 (14:18→22:04)
--- NOTE | 2017-11-20 14:21 | NUR ---
PATIENT RECEIVED TRACHED ON MECHANICAL VENT. ALARMS VERIFIED AND AUDIBLE. SUCTIONED AND LAVAGED MODERATE-LARGE AMOUNT OF THICK FOURNIER SECRETIONS. VENT PLUGGED INTO RED OUTLET. AMBU BAG AT [facility].
[2017-11-20 16:00] VITALS: BP 115/67
[2017-11-20 20:00] VITALS: BP 106/63
--- NOTE | 2017-11-20 20:00 | NUR ---
RN OPENING NOTES RECEIVED BEDSIDE FROM JIA CRABTREE. PATIENT A/O X2-3 & MOUTH WORDS. BREATHING EVEN & UNLABORED W/ TRACH INTACT & TOLERATING VENT SETTINGS WELL AC 12, TV 450, FIO2 40%, PEEP 0. ON TELE W/ SINUS RHYTHM, HR 68. NO RESPIRATORY DISTRESS NOTED. RIGHT UPPER ARM PICC LINE & RIGHT HAND IV INTACT & PATENT W/ DRESSING CDI & IVF D5 NS INFUSING WELL @ 50 ML/HR. COLOSTOMY BAG IN PLACE & GUZMAN CATH DRAINING YELLOW URINE. NEPHROSTOMY W/ CLEAR OUTPUT & NO LEAKING NOTED. G-TUBE FLUSHING WELL W/ GTF GLUCERNA RUNNING @ 75 ML/HR. NO RESIDUAL NOTED. NO S/S OF PAIN OR DISCOMFORT @ THIS TIME. TURNED & REPOSITIONED, PATENT SUCTIONED . SAFETY MEASURES IN PLACE W/ SIDE RAILS UPX2 & BED LOCKED & IN LOWEST POSITION. WILL CONTINUE TO MONITOR.
--- NOTE | 2017-11-20 20:44 | NUR ---
RT NOTE: RECEIVED TRACH PT ON MECHANICAL VENT WITH NOTED SETTINGS. Q8/Q12 BREATHING TX GIVEN PER MD ORDER. NO ADVERSE REACTION NOTED. SX DONE WITH SMALL AMOUNT OF THIN PALE YELLOW SECRETIONS. PT TRACH PATENT AND SECURE. CERTIFIED PHARMACY TECH DONE. AMBU BAG AT BEDSIDE. VENT PLUGGED INTO RED OUTLET. ALARMS ARE ON AND AUDIBLE. WILL CONTINUE TO MONITOR. Addendum: 11/21/17 at 0221 by SOBIA VILLA RT Amended: Links added.
[2017-11-20] MEDS: ATORVASTATIN 10 MG TABLET GT SCH (22:01)
[2017-11-20] MEDS: POLYETHYLENE GLYCOL 3350 17 GM POWD.PACK GT SCH (22:09)
[2017-11-20] MEDS: PROSOURCE / PROSTAT (PYXIS) 30 ML UDC GT SCH (22:11)
[2017-11-20] MEDS: HYDROCODONE/APAP 5/325MG 1 EACH TABLET GT PRN (23:24)
[2017-11-21] VITALS (7 sets, daily range): BP systolic 96–128; BP diastolic 59–71
[2017-11-21] MEDS: ACETAMINOPHEN 325 MG TABLET PO PRN ×2 (02:19→17:23)
[2017-11-21] MEDS: CEFEPIME 2 GM in IV D5W 100 ML IV SCH ×3 (05:25→21:26)
--- NOTE | 2017-11-21 06:30 | NUR ---
RN CLOSING NOTES PATIENT IS A/O X2-3 & MOUTH WORDS. BREATHING EVEN & UNLABORED W/ TRACH INTACT & TOLERATED VENT SETTINGS WELL AC 12, TV 450, FIO2 40%, PEEP 0 DURING MY SHIFT. ON TELE W/ SINUS RHYTHM, HR 60'S. NO RESPIRATORY DISTRESS NOTED. RIGHT UPPER ARM PICC LINE & RIGHT HAND IV INTACT & PATENT W/ DRESSING CDI & IVF D5 NS INFUSING WELL @ 50 ML/HR. COLOSTOMY BAG IN PLACE & GUZMAN CATH DRAINING YELLOW URINE. NEPHROSTOMY W/ CLEAR OUTPUT & NO LEAKING NOTED. G-TUBE FLUSHING WELL W/ GTF GLUCERNA RUNNING @ 75 ML/HR. NO RESIDUAL NOTED DURING MY SHIFT. NO S/S OF PAIN OR DISCOMFORT @ THIS TIME. TURNED & REPOSITIONED, PATENT SUCTIONED . WOUND CARE PROVIDED ORDERED. SAFETY MEASURES IN PLACE W/ SIDE RAILS UPX2 & BED LOCKED & IN LOWEST POSITION. WILL GIVE REPORT TO AM NURSE FOR BRAKE RELINER.
--- NOTE | 2017-11-21 07:34 | NUR ---
MANAGER CASINO NOTE RECEIVED PATENT IN BED , ALL NEEDS ATTENDED WITH TRACH TO VENT SETTING ORDERED , AMBU BAG AT HOB AT ALL TIME ,ALERT X2,ABLE TO MAKE MOUTH WORDS, WITH COLOSCOPY IN LOWER ABDOMEN IN PLACE , WITH RT SIDE NEPHROSTOMY WITH YELLOW COLOR URINE , ALSO HAS GUZMAN CATH TO GRAVITY WITH YELLOW COLOR URINE , ON G RUBE FEEDING ORDERED KEEP HOB ELEVATED AT ALL TIME , RT UPPER ARM PICC LINE IN PLACE, ON IVF ORDERED WILL CONT TO MONITOR CLOSELY , BED IN LOWEST AND LOCKED POSITION , CALL LIGHT WITHIN REACH
[2017-11-21] MEDS: ACETYLCYSTEINE 10% SOLN 400 MG/4 ML VIAL NEB SCH ×3 (07:35→23:26)
--- NOTE | 2017-11-21 07:55 | NUR ---
RT PT RECEIVED WITH A [employer] 8 TRACH ON THE VENT WITH NOTED SETTINGS. PT IS AWAKE AND ALERT. VENT ALARMS ARE SET AND AUDIBLE WITH BVM BY BEDSIDE. MATERIAL ENGINEER CUFF PRESSURE NOTED. VENT IS PLUGGED INTO RED OUTLET. PT SX'D MODERATE THICK YELLOW SECRETIONS. NO RESPIRATORY DISTRESS NOTED AT THIS TIME, WILL CONTINUE TO MONITOR. Addendum: 11/21/17 at 0852 by ESPERANZA HOOPER RT Amended: Links added.
[2017-11-21] MEDS: GABAPENTIN 300 MG CAPSULE GT SCH ×3 (08:34→16:30)
[2017-11-21] MEDS: CALCIUM CARBONATE 500 MG TAB.CHEW PO SCH ×3 (08:34→16:30)
[2017-11-21] MEDS: CALCITRIOL 0.25 MCG CAPSULE PO SCH (08:34)
[2017-11-21] MEDS: ESCITALOPRAM OXALATE (10 MG) 10 MG TABLET GT SCH (08:34)
[2017-11-21] MEDS: BACLOFEN (10 MG) 10 MG TABLET GT SCH ×4 (08:35→21:27)
[2017-11-21] MEDS: MULTIVIT, IRON, MIN NO. 8, FA 1 TAB PO SCH (08:35)
[2017-11-21] MEDS: METHADONE HCL 10 MG TABLET GT SCH (08:35)
[2017-11-21] MEDS: ZINC SULFATE 220 MG CAPSULE PO SCH (08:35)
[2017-11-21] MEDS: ASCORBIC ACID 500 MG TABLET PO SCH (08:35)
[2017-11-21] MEDS: FAMOTIDINE (20 MG) 20 MG TABLET GT SCH ×2 (08:35→21:27)
[2017-11-21] MEDS: ACIDOPHILUS/BULGARICUS 1 EACH TAB.CHEW GT SCH ×3 (08:35→16:30)
[2017-11-21] MEDS: HYDROGEN PEROXIDE 480 ML BOTTLE TP SCH ×2 (08:38→21:29)
[2017-11-21] MEDS: DAKINS QUARTER STRENGTH (0.125%) 480 ML BOTTLE TOP SCH ×2 (08:38→21:29)
[2017-11-21] MEDS: MINERAL OIL/PETROL OINT 396 GM JAR TP SCH ×2 (08:38→21:28)
[2017-11-21] MEDS: MUPIROCIN OINT 2% 22 GM TUBE SCH ×2 (08:39→21:30)
[2017-11-21] MEDS: CLOTRIMAZOLE 1% 15 GM TUBE TP SCH ×6 (09:00→21:30)
[2017-11-21] MEDS: COLISTIMETHATE SODIUM 150 MG VIAL NEB SCH ×2 (09:12→20:08)
--- NOTE | 2017-11-21 09:16 | NUR ---
SAND CASTER APPRENTICE NOTE ON BREATHING TX BY RT , LOTRIMIN GIVEN, DUPLICATE ORDER
--- NOTE | 2017-11-21 10:23 | NUR ---
TOE POUNDER NOTE SEEN BY DR AMAYA WITH POSSIBLE TO D\C TO SNF
[2017-11-21] MEDS: HYDROCODONE/APAP 5/325MG 1 EACH TABLET GT PRN (11:45)
--- NOTE | 2017-11-21 12:28 | NUR ---
DISTRICT HOME ECONOMICS AGENT NOTE FAMILY AT BEDSIDE AISLINN SINGH RN LATHING SUPERVISOR AT BEDSIDE WITH NEW ORDER FOR LAB ORDERED ,WILL F\U
[2017-11-21 13:07] LABS: BASOPHILS # (AUTO) 0.1 /CMM (0.0-0.2); BASOPHILS % (AUTO) 0.6 % (0.0-2.0); HEMATOCRIT 28 % (39-51); HEMOGLOBIN 8.6 g/dL (13.5-17.5); LYMPHOCYTES # (AUTO) 1.5 /CMM (0.8-4.8); LYMPHOCYTES % (AUTO) 12.4 % (20.0-44.0); MEAN CORPUSCULAR HGB CONC 31 g/dl (31.0-36.0); MEAN CORPUSCULAR VOLUME 82 fL (80-96); MONOCYTES # (AUTO) 0.4 /CMM (0.1-1.30); MONOCYTES % (AUTO) 3.4 % (2.0-12.0); NEUTROPHILS # (AUTO) 9.8 /CMM (1.8-8.9); NEUTROPHILS % (AUTO) 79.6 % (43.0-81.0); PLATELET COUNT (AUTO) 536 /CMM (150-450); RDW COEFFICIENT OF VARIATION 23.1 (11.5-15.0); WHITE BLOOD COUNT (AUTO) 12.4 K/uL (4.3-11.0)
[2017-11-21 13:26] LABS: CALCIUM, SERUM 8.6 mg/dL (8.5-10.1); CREATININE 0.6 mg/dL (0.6-1.3); POTASSIUM 4.3 mmol/L (3.5-5.1)
[2017-11-21] MEDS: GLUCERNA 1.2 1,000 ML BOTTLE GT PRN (13:40)
--- NOTE | 2017-11-21 15:00 | NUR ---
OPTICAL SALES ASSOCIATE NOTE RT AT BEDSIDE, BREATHING TX DONE ORDERED. ALL NEEDS ATTENDED. NOT IN ACUTE DISTRESS
--- NOTE | 2017-11-21 15:28 | NUR ---
DIGITAL CIRCUIT DESIGNER NOTE \PER LORIN RN ID OK TO PLACE OB DROPLET ISOLATION FOR CRE INFECTION WILL CONT TO MONITOR
--- NOTE | 2017-11-21 17:29 | NUR ---
CREATIVE SERVICES DIRECTOR NOTE TYLENOL FOR BODY PAIN GIVEN. ALL NEEDS ATTEND. CONT VENT AND TRACH CARE, RT AT BESIDE WILL CONT TO MONITOR CLOSELY
--- NOTE | 2017-11-21 18:48 | NUR ---
JUNIOR PARALEGAL NOTE MUKESH RN ID SEEN PATENT , PATIENT RESTING COMFORTABLY AT THIS RENÉ,E CONT ON IVF ORDERED ,WILL CONT TO MONITOR CLOSELY
[2017-11-21] MEDS: IV D5/ 0.9% NACL 1,000 ML IV PRN (18:55)
--- NOTE | 2017-11-21 20:00 | NUR ---
RN OPENING NOTES RECEIVED BEDSIDE FROM AM RN. PATIENT A/O X2-3 & MOUTH WORDS. BREATHING EVEN & UNLABORED W/ TRACH INTACT & TOLERATING VENT SETTINGS WELL AC 12, TV 450, FIO2 40%, PEEP 0. ON TELE W/ SINUS RHYTHM, HR 68. NO RESPIRATORY DISTRESS NOTED. RIGHT UPPER ARM PICC LINE & RIGHT HAND IV INTACT & PATENT W/ DRESSING CDI & IVF D5 NS INFUSING WELL @ 50 ML/HR. COLOSTOMY BAG IN PLACE & GUZMAN CATH DRAINING YELLOW URINE. NEPHROSTOMY W/ CLEAR OUTPUT & NO LEAKING NOTED. G-TUBE FLUSHING WELL W/ GTF GLUCERNA RUNNING @ 75 ML/HR. NO RESIDUAL NOTED. NO S/S OF PAIN OR DISCOMFORT @ THIS TIME. TURNED & REPOSITIONED, PATENT SUCTIONED . SAFETY MEASURES IN PLACE W/ SIDE RAILS UPX2 & BED LOCKED & IN LOWEST POSITION. WILL CONTINUE TO MONITOR.
--- NOTE | 2017-11-21 20:09 | NUR ---
RECEIVED PT TRACHED ON VENT. PT TOLERATING VENT SETTINGS. SX'D FOR MOD AMT OF THIN FOURNIER SECRETIONS. VENT ALARMS SET AND AUDIBLE. TRACH SECURE, CUFF CAREER ORIENTATION TEACHER. AMBU BAG AT BEDSIDE. VENT PLUGGED INTO RED OUTLET. WILL CONTINUE TO MONITOR. Addendum: 11/21/17 at 2009 by CONTRERAS MARQUES RT Amended: Links added.
[2017-11-21] MEDS: PROSOURCE / PROSTAT (PYXIS) 30 ML UDC GT SCH (21:26)
[2017-11-21] MEDS: POLYETHYLENE GLYCOL 3350 17 GM POWD.PACK GT SCH (21:26)
[2017-11-21] MEDS: ATORVASTATIN 10 MG TABLET GT SCH (21:27)
[2017-11-22] VITALS: BP 115/67
[2017-11-22] MEDS: HYDROCODONE/APAP 5/325MG 1 EACH TABLET GT PRN (03:58)
[2017-11-22 04:00] VITALS: BP 120/68
[2017-11-22] MEDS: CEFEPIME 2 GM in IV D5W 100 ML IV SCH ×2 (05:03→12:36)
[2017-11-22] MEDS: GLUCERNA 1.2 1,000 ML BOTTLE GT PRN (05:03)
[2017-11-22] MEDS: ACETYLCYSTEINE 10% SOLN 400 MG/4 ML VIAL NEB SCH ×2 (07:41→16:01)
[2017-11-22 08:00] VITALS: BP 121/62
--- NOTE | 2017-11-22 08:00 | NUR ---
MS RN RECEIVED ON BED, AWAKE,ALERT,ORIENTED X3,NOT IN ANY FORM OF DISTRESS, RESPIRATIONS EVEN AND UNLABORED,NO SOB NOTED, LUNGS HAVE RONCHIS,ABDOMEN SOFT,POSITIVE BOWEL SOUNDS, NEPHROSTOMY INTACT W/ YELLOW URINE OUTPUT, GUZMAN CATHETER INTACT , DRAINING YELLOWISH URINE OUTPUT,NOTED TO HAVE MULTIPLE SACRAL WOUNDS,DENIES PAIN AT THIS TIME, WILL MONITOR PATIENT'S CONDITION.
[2017-11-22] MEDS: COLISTIMETHATE SODIUM 150 MG VIAL NEB SCH (09:00)
[2017-11-22] MEDS: CLOTRIMAZOLE 1% 15 GM TUBE TP SCH ×3 (09:00→09:34)
--- NOTE | 2017-11-22 09:00 | NUR ---
MS RN DUE MEDS GIVEN,TOLERATED WELL.
[2017-11-22] MEDS: ASCORBIC ACID 500 MG TABLET PO SCH (09:17)
[2017-11-22] MEDS: CALCIUM CARBONATE 500 MG TAB.CHEW PO SCH ×2 (09:17→12:35)
[2017-11-22] MEDS: CALCITRIOL 0.25 MCG CAPSULE PO SCH (09:18)
[2017-11-22] MEDS: BACLOFEN (10 MG) 10 MG TABLET GT SCH ×2 (09:18→12:35)
[2017-11-22] MEDS: MULTIVIT, IRON, MIN NO. 8, FA 1 TAB PO SCH (09:18)
[2017-11-22] MEDS: FAMOTIDINE (20 MG) 20 MG TABLET GT SCH (09:18)
[2017-11-22] MEDS: METHADONE HCL 10 MG TABLET GT SCH (09:18)
[2017-11-22] MEDS: ESCITALOPRAM OXALATE (10 MG) 10 MG TABLET GT SCH (09:18)
[2017-11-22] MEDS: ACIDOPHILUS/BULGARICUS 1 EACH TAB.CHEW GT SCH ×2 (09:18→12:35)
[2017-11-22] MEDS: ZINC SULFATE 220 MG CAPSULE PO SCH (09:19)
[2017-11-22] MEDS: GABAPENTIN 300 MG CAPSULE GT SCH ×2 (09:19→12:34)
[2017-11-22] MEDS: HYDROGEL DRESSING 90 GM TUBE TP SCH (09:33)
[2017-11-22] MEDS: MINERAL OIL/PETROL OINT 396 GM JAR TP SCH (09:33)
[2017-11-22] MEDS: MUPIROCIN OINT 2% 22 GM TUBE SCH (09:34)
[2017-11-22] MEDS: DAKINS QUARTER STRENGTH (0.125%) 480 ML BOTTLE TOP SCH (09:35)
[2017-11-22] MEDS: HYDROGEN PEROXIDE 480 ML BOTTLE TP SCH (11:08)
[2017-11-22 13:32] LABS: BASOPHILS % (AUTO) 0.3 % (0.0-2.0); EOSINOPHILS % (AUTO) 3.6 % (0.0-6.0); HEMATOCRIT 30 % (39-51); HEMOGLOBIN 9.3 g/dL (13.5-17.5); LYMPHOCYTES # (AUTO) 1.6 /CMM (0.8-4.8); LYMPHOCYTES % (AUTO) 13.6 % (20.0-44.0); MEAN CORPUSCULAR HGB CONC 31 g/dl (31.0-36.0); MEAN CORPUSCULAR VOLUME 83 fL (80-96); MONOCYTES # (AUTO) 0.8 /CMM (0.1-1.30); MONOCYTES % (AUTO) 7.2 % (2.0-12.0); NEUTROPHILS # (AUTO) 8.8 /CMM (1.8-8.9); NEUTROPHILS % (AUTO) 75.3 % (43.0-81.0); PLATELET COUNT (AUTO) 535 /CMM (150-450); RDW COEFFICIENT OF VARIATION 23.3 (11.5-15.0); RED BLOOD CELL COUNT(AUTO) 3.66 MIL/uL (4.5-6.0); WHITE BLOOD COUNT (AUTO) 11.7 K/uL (4.3-11.0)
[2017-11-22 13:39] LABS: CALCIUM, SERUM 8.6 mg/dL (8.5-10.1); CREATININE 0.8 mg/dL (0.6-1.3); POTASSIUM 4.2 mmol/L (3.5-5.1)
--- NOTE | 2017-11-22 14:00 | NUR ---
MS RN READY TO BE TRANSFERRED TO SUB ACUTE,BED NOT YET READY.
[2017-11-22] MEDS ORDERED: COLI150V12 NEB (14:19)
[2017-11-22] MEDS ORDERED: CEFE2FRO IV (14:19)
== END 2017-11-22 17:00 | DRG 853 ==
LOC: ICU 16:01 → TELE-TD 11-16 11:19 → TELE1 11-19 13:03
PROVIDERS: ADMIT Internal Medicine; ATTEND Internal Medicine
PROC: 5A1955Z Respiratory Ventilation, Greater than 96 Consecutive Hours (ICD-10-PCS; principal; 2017-11-14)
PROC: 30233N1 Transfusion of Nonautologous Red Blood Cells into Peripheral Vein, Percutaneous Approach (ICD-10-PCS; 2017-11-14)
PROC: 02HV33Z Insertion of Infusion Device into Superior Vena Cava, Percutaneous Approach (ICD-10-PCS; 2017-11-14)
PROC: B548ZZA Ultrasonography of Superior Vena Cava, Guidance (ICD-10-PCS; 2017-11-14)
PROC: 0KBN0ZZ Excision of Right Hip Muscle, Open Approach (ICD-10-PCS; 2017-11-16)
PROC: 0QB30ZZ Excision of Left Pelvic Bone, Open Approach (ICD-10-PCS; 2017-11-16)
PROC: 0JB70ZZ Excision of Back Subcutaneous Tissue and Fascia, Open Approach (ICD-10-PCS; 2017-11-16)
DX: A41.9 Sepsis, unspecified organism (principal); L89.324 Pressure ulcer of left buttock, stage 4; L89.314 Pressure ulcer of right buttock, stage 4; L89.154 Pressure ulcer of sacral region, stage 4; G82.50 Quadriplegia, unspecified; R65.21 Severe sepsis with septic shock; G92 Toxic encephalopathy; J18.9 Pneumonia, unspecified organism; J96.21 Acute and chronic respiratory failure with hypoxia; J96.22 Acute and chronic respiratory failure with hypercapnia; N39.0 Urinary tract infection, site not specified; Z99.11 Dependence on respirator [ventilator] status; J98.11 Atelectasis; J44.0 Chronic obstructive pulmonary disease with (acute) lower respiratory infection; B96.5 Pseudomonas (aeruginosa) (mallei) (pseudomallei) as the cause of diseases classified elsewhere; D63.8 Anemia in other chronic diseases classified elsewhere; E66.9 Obesity, unspecified; E78.5 Hyperlipidemia, unspecified; E87.6 Hypokalemia; E83.51 Hypocalcemia; E83.42 Hypomagnesemia; G35 Multiple sclerosis; I10 Essential (primary) hypertension; K21.9 Gastro-esophageal reflux disease without esophagitis; Z93.0 Tracheostomy status; Z93.6 Other artificial openings of urinary tract status; Z87.440 Personal history of urinary (tract) infections; Q54.9 Hypospadias, unspecified; E11.9 Type 2 diabetes mellitus without complications; Z87.442 Personal history of urinary calculi; R13.10 Dysphagia, unspecified; E83.39 Other disorders of phosphorus metabolism; Z88.0 Allergy status to penicillin; Z86.14 Personal history of Methicillin resistant Staphylococcus aureus infection; T17.990A Other foreign object in respiratory tract, part unspecified in causing asphyxiation, initial encounter; X58.XXXA Exposure to other specified factors, initial encounter; Y93.9 Activity, unspecified; Y92.129 Unspecified place in nursing home as the place of occurrence of the external cause; L30.9 Dermatitis, unspecified; L30.4 Erythema intertrigo; I25.2 Old myocardial infarction; Z93.3 Colostomy status
CPT/HCPCS: 31720; 36415; 36569; 36600; 71045-TC; 80048-TC; 80076-TC; 80202-TC; 81000-TC; 82533; 82803-TC; 83605-TC; 83735-TC; 84100-TC; 84484-TC; 85025-TC; 85610-TC; 86850-TC; 86921-TC; 87070-TC; 87081-TC; 87086-TC; 87186-TC; 94002-TC; 94003-TC; 94668-TC; 94760-TC; 94762-TC; A4216; A4606; A6248; A6253; A6403; C1750; C1751; J0692; J0770; J1650; J1720; J2185; J3370; J3475; J3490; J7042; J7050; J7060; P9016-BL

== ENCOUNTER 2017-11-22 14:40 | Inpatient (IN) | END 2018-02-19 23:59 | disposition still patient (30) | DRG 207 | DX: J96.21 Acute and chronic respiratory failure with hypoxia (principal); G82.50 Quadriplegia, unspecified; A41.52 Sepsis due to Pseudomonas; J18.9 Pneumonia, unspecified organism; N39.0 Urinary tract infection, site not specified; G93.40 Encephalopathy, unspecified; J44.0 Chronic obstructive pulmonary disease with (acute) lower respiratory infection; N20.2 Calculus of kidney with calculus of ureter; Z99.11 Dependence on respirator [ventilator] status; R13.10 Dysphagia, unspecified; D63.8 Anemia in other chronic diseases classified elsewhere; D64.9 Anemia, unspecified; E11.9 Type 2 diabetes mellitus without complications; E78.5 Hyperlipidemia, unspecified; G35 Multiple sclerosis; I10 Essential (primary) hypertension; K21.9 Gastro-esophageal reflux disease without esophagitis; L60.0 Ingrowing nail; L60.3 Nail dystrophy; N13.9 Obstructive and reflux uropathy, unspecified; Q54.9 Hypospadias, unspecified; Z74.01 Bed confinement status; Z85.828 Personal history of other malignant neoplasm of skin; Z93.0 Tracheostomy status; Z93.1 Gastrostomy status; Z93.3 Colostomy status; Z93.6 Other artificial openings of urinary tract status; G89.29 Other chronic pain ==

== ENCOUNTER 2018-02-20 | Inpatient (IN) | payer MEDICARE, MEDICAID ==
[~2018-02-20] VITALS: Ht 167.6 cm; Wt 78.5 kg
[~2018-02-20] MED LIST changes: +BISA10SU11 RC; -BISA10SU8 RC; -CEFE1VIA3 SQ; +CEFE2FRO IV; +HYDR-4384 GT; -HYDR-552 GT; -VANC750P8 IV; -ZINC220T GT; +ZINC220T4 GT
[2018-02-21] MEDS: METHADONE HCL 10 MG TABLET GT SCH (09:00)
[2018-02-21] MEDS ORDERED: IPRATROPIUM NEB FS 0.5 MG/2.5 ML AMPUL.NEB IH PRN (09:30)
[2018-02-21] MEDS ORDERED: ONDANSETRON 4 MG TAB.RAPDIS GT PRN (09:30)
[2018-02-21] MEDS ORDERED: ACETAMINOPHEN 650 MG SUPP.RECT RC PRN (09:30)
[2018-02-21] MEDS ORDERED: HYDROGEN PEROXIDE 480 ML BOTTLE TP PRN (09:30)
[2018-02-21] MEDS ORDERED: ACETAMINOPHEN SUP SA PATIENTS 650 MG SUPP RC PRN (09:30)
[2018-02-21] MEDS ORDERED: MAG HYDROX/AL HYDROX/SIMETH 30 ML UDC GT PRN (09:30)
[2018-02-21] MEDS: ESCITALOPRAM OXALATE (10 MG) 10 MG TABLET GT SCH (09:54)
[2018-02-21] MEDS: FAMOTIDINE (20 MG) 20 MG TABLET GT SCH ×2 (09:54→21:38)
[2018-02-21] MEDS: CALCITRIOL 0.25 MCG CAPSULE PO SCH (09:54)
--- NOTE | 2018-02-21 10:01 | NUR ---
Please see resident's previous account [id number] for all assessments and nurses notes. Originally admitted on 04/15/2014; readmission 11/22/2017.
--- NOTE | 2018-02-21 10:18 | NUR ---
RT NOTE: LATE ENTRY- AT APPROX:0712-PATIENT PLACED ON 35% COOL AEROSOL PER MD ORDER. SUCTIONED AND LAVAGED THICK FOURNIER SECRETIONS. PATIENT TOLERATING WELL. AM[facility] B[facility]. WILL CONTINUE TO MONITOR.
[2018-02-21] MEDS: HYDROCODONE/APAP 5/325MG 1 EACH TABLET GT SCH ×2 (10:30→21:38)
--- NOTE | 2018-02-21 10:36 | NUR ---
Please see resident's previous account [id number] for Social Service assessments, evaluations and notes.
[2018-02-21] MEDS: ACIDOPHILUS/BULGARICUS 1 EACH TAB.CHEW GT SCH ×2 (13:28→17:14)
[2018-02-21] MEDS: GABAPENTIN 300 MG CAPSULE GT SCH ×2 (13:29→17:14)
[2018-02-21] MEDS: PROSTAT (PYXIS) 30 ML UDC GT SCH ×2 (13:29→17:14)
[2018-02-21] MEDS: BACLOFEN (10 MG) 10 MG TABLET GT SCH ×3 (13:29→21:38)
[2018-02-21] MEDS: CALCIUM CARBONATE 500 MG TAB.CHEW GT SCH ×2 (13:29→17:14)
[2018-02-21] MEDS: IPRATROPIUM NEB FS 0.5 MG/2.5 ML AMPUL.NEB NEB SCH ×2 (13:37→19:33)
[2018-02-21] MEDS: ASCORBIC ACID 500 MG TABLET GT SCH (17:14)
[2018-02-21 20:00] VITALS: BP 109/71
[2018-02-21] MEDS ORDERED: Z GUARD REMEDY 4 OZ OINT TP SCH ×2 (21:00)
[2018-02-21] MEDS ORDERED: CLOTRIMAZOLE 1% 15 GM TUBE TP SCH (21:00)
[2018-02-21] MEDS ORDERED: GENTAMICIN 0.1% CREAM 15 GM TUBE TP SCH (21:00)
[2018-02-21] MEDS ORDERED: FAMOTIDINE (20 MG) 20 MG TABLET GT SCH (21:00)
[2018-02-21] MEDS ORDERED: NYSTATIN TOP POWDER 15 GM BOTTLE TP SCH ×2 (21:00)
[2018-02-21] MEDS: ZINC SULFATE 220 MG CAPSULE GT SCH (21:38)
[2018-02-21] MEDS: ENOXAPARIN SODIUM 40 MG/0.4 ML DISP.SYRIN SQ SCH (21:39)
[2018-02-21] MEDS: ATORVASTATIN 10 MG TABLET GT SCH (21:40)
[2018-02-21] MEDS: POLYETHYLENE GLYCOL 3350 17 GM POWD.PACK GT SCH (21:40)
[2018-02-21] MEDS: HYDROGEL DRESSING 90 GM TUBE TP SCH ×2 (22:00)
[2018-02-21] MEDS: NYSTATIN/TRIAMCIN 15 GM CREAM 15 GM TUBE TP SCH (22:00)
[2018-02-21] MEDS: HYDROGEN PEROXIDE 480 ML BOTTLE TP SCH (22:00)
[2018-02-21] MEDS: METHOCARBAMOL (750MG) 750 MG TABLET GT PRN (23:00)
[2018-02-22] MEDS: IPRATROPIUM NEB FS 0.5 MG/2.5 ML AMPUL.NEB NEB SCH ×4 (01:54→19:45)
[2018-02-22] MEDS: HYDROCODONE/APAP 5/325MG 1 EACH TABLET GT PRN (03:30)
[2018-02-22] MEDS: HYDROGEN PEROXIDE 480 ML BOTTLE TP SCH ×2 (09:00→22:00)
[2018-02-22] MEDS: NYSTATIN/TRIAMCIN 15 GM CREAM 15 GM TUBE TP SCH ×2 (09:00→22:00)
[2018-02-22] MEDS ORDERED: METHADONE HCL 10 MG TABLET GT SCH (09:00)
[2018-02-22] MEDS: HYDROGEL DRESSING 90 GM TUBE TP SCH ×4 (09:00→22:00)
[2018-02-22] MEDS: ESCITALOPRAM OXALATE (10 MG) 10 MG TABLET GT SCH (09:40)
[2018-02-22] MEDS: BACLOFEN (10 MG) 10 MG TABLET GT SCH ×4 (09:40→21:11)
[2018-02-22] MEDS: ACIDOPHILUS/BULGARICUS 1 EACH TAB.CHEW GT SCH ×3 (09:40→17:34)
[2018-02-22] MEDS: GABAPENTIN 300 MG CAPSULE GT SCH ×3 (09:41→17:36)
[2018-02-22] MEDS: FAMOTIDINE (20 MG) 20 MG TABLET GT SCH ×2 (09:41→21:11)
[2018-02-22] MEDS: HYDROCODONE/APAP 5/325MG 1 EACH TABLET GT SCH ×2 (09:42→21:12)
[2018-02-22] MEDS: METHADONE HCL 10 MG TABLET GT SCH (09:42)
[2018-02-22] MEDS: ASCORBIC ACID 500 MG TABLET GT SCH ×2 (09:44→17:38)
[2018-02-22] MEDS: CALCITRIOL 0.25 MCG CAPSULE PO SCH (09:44)
[2018-02-22] MEDS: CALCIUM CARBONATE 500 MG TAB.CHEW GT SCH ×3 (09:44→17:39)
[2018-02-22] MEDS: PROSTAT (PYXIS) 30 ML UDC GT SCH ×3 (09:44→17:39)
[2018-02-22] MEDS: MULTIVIT W/MINERALS 1 TAB TABLET GT SCH (09:45)
--- NOTE | 2018-02-22 20:30 | NUR ---
Seen by CARLI Hoffman no new order.
[2018-02-22 20:34] VITALS: BP 102/60
[2018-02-22] MEDS: ZINC SULFATE 220 MG CAPSULE GT SCH (21:11)
[2018-02-22] MEDS: ENOXAPARIN SODIUM 40 MG/0.4 ML DISP.SYRIN SQ SCH (21:12)
[2018-02-22] MEDS: POLYETHYLENE GLYCOL 3350 17 GM POWD.PACK GT SCH (21:13)
[2018-02-22] MEDS: ATORVASTATIN 10 MG TABLET GT SCH (21:13)
[2018-02-23] MEDS: IPRATROPIUM NEB FS 0.5 MG/2.5 ML AMPUL.NEB NEB SCH ×4 (01:13→19:38)
[2018-02-23 08:00] VITALS: BP 104/64
--- NOTE | 2018-02-23 08:30 | NUR ---
RT RECD PT TRACHD INTACT SECURED ON MECH VENT PLACED ON COOL AEROSOL TOLD WELL NO RESP DISTRESS THROUGHOUT SHIFT
[2018-02-23] MEDS: ESCITALOPRAM OXALATE (10 MG) 10 MG TABLET GT SCH (08:56)
[2018-02-23] MEDS: ACIDOPHILUS/BULGARICUS 1 EACH TAB.CHEW GT SCH ×3 (08:56→17:46)
[2018-02-23] MEDS: BACLOFEN (10 MG) 10 MG TABLET GT SCH ×4 (08:56→21:12)
[2018-02-23] MEDS: PROSTAT (PYXIS) 30 ML UDC GT SCH ×3 (08:57→17:46)
[2018-02-23] MEDS: FAMOTIDINE (20 MG) 20 MG TABLET GT SCH ×2 (08:57→21:12)
[2018-02-23] MEDS: ASCORBIC ACID 500 MG TABLET GT SCH ×2 (08:57→17:46)
[2018-02-23] MEDS: METHADONE HCL 10 MG TABLET GT SCH (08:57)
[2018-02-23] MEDS: CALCITRIOL 0.25 MCG CAPSULE PO SCH (08:57)
[2018-02-23] MEDS: MULTIVIT W/MINERALS 1 TAB TABLET GT SCH (08:57)
[2018-02-23] MEDS: GABAPENTIN 300 MG CAPSULE GT SCH ×3 (08:57→17:46)
[2018-02-23] MEDS: CALCIUM CARBONATE 500 MG TAB.CHEW GT SCH ×3 (08:57→17:46)
[2018-02-23] MEDS: HYDROCODONE/APAP 5/325MG 1 EACH TABLET GT PRN (08:58)
[2018-02-23] MEDS: HYDROCODONE/APAP 5/325MG 1 EACH TABLET GT SCH ×2 (14:58→22:00)
[2018-02-23] MEDS: NYSTATIN/TRIAMCIN 15 GM CREAM 15 GM TUBE TP SCH ×2 (15:30→22:30)
[2018-02-23] MEDS: HYDROGEN PEROXIDE 480 ML BOTTLE TP SCH ×2 (15:30→22:30)
[2018-02-23] MEDS: HYDROGEL DRESSING 90 GM TUBE TP SCH ×4 (15:30→22:30)
--- NOTE | 2018-02-23 15:55 | NUR ---
general distillery worker met with the resident's [id number] Vilma Marley to complete intake paperwork (patient rights acknowledgement, documentation of preferred intensity of care, Important message from Medicare, conditions of admission, [place] Standard Admission Agreement, and voluntary prior express consent form). general distillery worker educated the resident's sister on advanced healthcare directives/conservatorship. Resident already has an advanced healthcare directive that was recently done and a copy is placed in the resident's chart. She declines to file for conservatorship at this time. Intake paperwork was placed in the resident's chart. Resident to remain full code.
--- NOTE | 2018-02-23 18:39 | NUR ---
Seen by CARLI Hoffman, no new order given.
--- NOTE | 2018-02-23 20:22 | NUR ---
RT NOTE PATIENT RECEIVED TRACHED ON COOL AEROSOL. AMBU BAG/BACK UP TRACH @ BEDSIDE. PLACED PATIENT ON VENT PER NOC ORDER. CUFF CHECKED VIA COMPLIANCE REPRESENTATIVE. TX GIVEN, NO ADVERSE REACTIONS NOTED. SX DONE, SMALL THICK YELLOW SECRETIONS NOTED. ALARMS ON AND AUDIBLE. NO DISTRESS NOTED. PATIENT STABLE. WILL MONITOR. Addendum: 02/23/18 at 2022 by VERNELL CHRISTINE RT Amended: Links added.
[2018-02-23] MEDS: ZINC SULFATE 220 MG CAPSULE GT SCH (21:12)
[2018-02-23] MEDS: ENOXAPARIN SODIUM 40 MG/0.4 ML DISP.SYRIN SQ SCH (21:13)
[2018-02-23] MEDS: ATORVASTATIN 10 MG TABLET GT SCH (21:13)
[2018-02-23] MEDS: POLYETHYLENE GLYCOL 3350 17 GM POWD.PACK GT SCH (21:13)
[2018-02-23 21:36] VITALS: BP 116/77
[2018-02-23] MEDS: Z GUARD REMEDY 2 OZ OINT TP SCH (22:30)
[2018-02-23] MEDS: GENTAMICIN 0.1% CREAM 15 GM TUBE TP SCH (22:30)
[2018-02-24] MEDS: IPRATROPIUM NEB FS 0.5 MG/2.5 ML AMPUL.NEB NEB SCH ×4 (01:28→19:32)
[2018-02-24] MEDS: METHADONE HCL 10 MG TABLET GT SCH (09:35)
[2018-02-24] MEDS: GABAPENTIN 300 MG CAPSULE GT SCH ×3 (09:35→17:25)
[2018-02-24] MEDS: HYDROCODONE/APAP 5/325MG 1 EACH TABLET GT SCH ×2 (09:35→20:26)
[2018-02-24] MEDS: BACLOFEN (10 MG) 10 MG TABLET GT SCH ×4 (09:35→20:26)
[2018-02-24] MEDS: ESCITALOPRAM OXALATE (10 MG) 10 MG TABLET GT SCH (09:35)
[2018-02-24] MEDS: ACIDOPHILUS/BULGARICUS 1 EACH TAB.CHEW GT SCH ×3 (09:35→17:25)
[2018-02-24] MEDS: CALCIUM CARBONATE 500 MG TAB.CHEW GT SCH ×3 (09:36→17:25)
[2018-02-24] MEDS: ASCORBIC ACID 500 MG TABLET GT SCH ×2 (09:36→17:25)
[2018-02-24] MEDS: CALCITRIOL 0.25 MCG CAPSULE PO SCH (09:36)
[2018-02-24] MEDS: PROSTAT (PYXIS) 30 ML UDC GT SCH ×3 (09:36→17:25)
[2018-02-24] MEDS: FAMOTIDINE (20 MG) 20 MG TABLET GT SCH ×2 (09:36→20:27)
[2018-02-24] MEDS: MULTIVIT W/MINERALS 1 TAB TABLET GT SCH (09:36)
[2018-02-24] MEDS: GENTAMICIN 0.1% CREAM 15 GM TUBE TP SCH ×2 (10:05→20:27)
[2018-02-24] MEDS: HYDROGEL DRESSING 90 GM TUBE TP SCH ×4 (10:05→20:27)
[2018-02-24] MEDS: HYDROGEN PEROXIDE 480 ML BOTTLE TP SCH ×2 (10:05→20:27)
[2018-02-24] MEDS: NYSTATIN/TRIAMCIN 15 GM CREAM 15 GM TUBE TP SCH ×2 (10:05→20:27)
[2018-02-24] MEDS: Z GUARD REMEDY 2 OZ OINT TP SCH ×2 (10:05→20:28)
--- NOTE | 2018-02-24 16:59 | NUR ---
RT NOTE RECEIVED PT MECHANICALLY VENTILATED VIA CUFFED TRACHEOSTOMY TUBE. CUFF INFLATED. TRACH TUBE MIDLINE AND SECURE. VENTILATOR SETTINGS PRESCRIBED. ALARMS SET PER PROTOCOL AND AUDIBLE. VENT PLUGGED IN TO RED OUTLET. AMBU BAG AT BED SIDE. NO DISTRESS NOTED AT MOMENT. PT PLACED ON COOL AEROSOL PER MD ORDER. CUFF DEFLATED. PT AWAKE AND ALERT. NO DISTRESS NOTED. Addendum: 02/24/18 at 1701 by KAJAL ARAIZA RT Amended: Links added.
[2018-02-24] MEDS: MAGNESIUM HYDROXIDE 30 ML UDC GT PRN (19:04)
[2018-02-24 19:47] VITALS: BP 113/75
[2018-02-24] MEDS: ENOXAPARIN SODIUM 40 MG/0.4 ML DISP.SYRIN SQ SCH (20:27)
[2018-02-24] MEDS: ZINC SULFATE 220 MG CAPSULE GT SCH (20:27)
--- NOTE | 2018-02-24 20:29 | NUR ---
PT RCVD TRACH'D ON COOL AEROSOL. PLACED PT ON MECHANICAL VENT PER MD ORDERS WITH CHARTED SETTINGS. HHN TX GIVEN AND NO ADVERSE REACTION NOTED. SX DONE. PT TRACH PATENT AND SECURE. CUFF CHECKED VIA TURN SEWER. ALARMS ARE SET AND AUDIBLE. AMBU BAG AT BEDSIDE. VENT PLUGGED INTO RED OUTLET. WILL CONTINUE TO MONITOR. Addendum: 02/24/18 at 2030 by LUCIANA TRIMBLE RT Amended: Links added.
[2018-02-24] MEDS: ATORVASTATIN 10 MG TABLET GT SCH (21:55)
[2018-02-24] MEDS: POLYETHYLENE GLYCOL 3350 17 GM POWD.PACK GT SCH (21:55)
[2018-02-25] MEDS: IPRATROPIUM NEB FS 0.5 MG/2.5 ML AMPUL.NEB NEB SCH ×4 (00:53→20:13)
[2018-02-25] MEDS: HYDROGEN PEROXIDE 480 ML BOTTLE TP SCH ×2 (09:00→21:25)
[2018-02-25] MEDS: HYDROCODONE/APAP 5/325MG 1 EACH TABLET GT SCH ×2 (09:00→21:23)
[2018-02-25] MEDS: Z GUARD REMEDY 2 OZ OINT TP SCH ×2 (09:00→21:25)
[2018-02-25] MEDS: NYSTATIN/TRIAMCIN 15 GM CREAM 15 GM TUBE TP SCH ×2 (09:00→21:25)
[2018-02-25] MEDS: GENTAMICIN 0.1% CREAM 15 GM TUBE TP SCH ×2 (09:00→21:25)
[2018-02-25] MEDS: HYDROGEL DRESSING 90 GM TUBE TP SCH ×4 (09:00→21:25)
[2018-02-25] MEDS: METHADONE HCL 10 MG TABLET GT SCH (09:17)
[2018-02-25] MEDS: ESCITALOPRAM OXALATE (10 MG) 10 MG TABLET GT SCH (09:17)
[2018-02-25] MEDS: GABAPENTIN 300 MG CAPSULE GT SCH ×3 (09:17→17:25)
[2018-02-25] MEDS: ACIDOPHILUS/BULGARICUS 1 EACH TAB.CHEW GT SCH ×3 (09:17→17:25)
[2018-02-25] MEDS: BACLOFEN (10 MG) 10 MG TABLET GT SCH ×4 (09:17→21:22)
[2018-02-25] MEDS: FAMOTIDINE (20 MG) 20 MG TABLET GT SCH ×2 (09:18→21:23)
[2018-02-25] MEDS: CALCITRIOL 0.25 MCG CAPSULE PO SCH (09:18)
[2018-02-25] MEDS: MULTIVIT W/MINERALS 1 TAB TABLET GT SCH (09:18)
[2018-02-25] MEDS: CALCIUM CARBONATE 500 MG TAB.CHEW GT SCH ×3 (09:18→17:25)
[2018-02-25] MEDS: ASCORBIC ACID 500 MG TABLET GT SCH ×2 (09:18→17:25)
[2018-02-25] MEDS: PROSTAT (PYXIS) 30 ML UDC GT SCH ×3 (09:18→17:25)
[2018-02-25 19:03] VITALS: BP 116/67
[2018-02-25 20:40] VITALS: BP 115/75
[2018-02-25 20:42] VITALS: BP 118/55
--- NOTE | 2018-02-25 20:48 | NUR ---
RT PATIENT RECEIVED TRACHED ON COOL AEROSOL. PLACED PATIENT ON VENT PER NOC ORDER. NO RESP DISTRESS NOTED. HHN TX GIVEN, NO ADVERSE REACTIONS NOTED. PT SUCTIONED. ALARMS ON AND AUDIBLE. AMBU BAG/BACK UP TRACH @ BEDSIDE. VENT CONNECTED TO RED OUTLET. WILL CONT TO MONITOR. Addendum: 02/25/18 at 2050 by DAMON PAZ RT Amended: Links added.
[2018-02-25] MEDS: ZINC SULFATE 220 MG CAPSULE GT SCH (21:23)
[2018-02-25] MEDS: ENOXAPARIN SODIUM 40 MG/0.4 ML DISP.SYRIN SQ SCH (21:23)
[2018-02-25] MEDS: ATORVASTATIN 10 MG TABLET GT SCH (21:25)
[2018-02-25] MEDS: POLYETHYLENE GLYCOL 3350 17 GM POWD.PACK GT SCH (21:25)
[2018-02-26] MEDS: IPRATROPIUM NEB FS 0.5 MG/2.5 ML AMPUL.NEB NEB SCH ×4 (01:32→19:34)
[2018-02-26] MEDS: HYDROCODONE/APAP 5/325MG 1 EACH TABLET GT PRN (03:25)
[2018-02-26 07:50] VITALS: BP 128/72
[2018-02-26] MEDS: HYDROGEL DRESSING 90 GM TUBE TP SCH ×4 (09:00→21:16)
[2018-02-26] MEDS: GENTAMICIN 0.1% CREAM 15 GM TUBE TP SCH ×2 (09:00→21:16)
[2018-02-26] MEDS: HYDROGEN PEROXIDE 480 ML BOTTLE TP SCH ×2 (09:00→21:16)
[2018-02-26] MEDS: NYSTATIN/TRIAMCIN 15 GM CREAM 15 GM TUBE TP SCH ×2 (09:00→21:16)
[2018-02-26] MEDS: Z GUARD REMEDY 2 OZ OINT TP SCH ×2 (09:00→21:17)
[2018-02-26] MEDS: ESCITALOPRAM OXALATE (10 MG) 10 MG TABLET GT SCH (09:13)
[2018-02-26] MEDS: PROSTAT (PYXIS) 30 ML UDC GT SCH ×3 (09:13→16:28)
[2018-02-26] MEDS: METHADONE HCL 10 MG TABLET GT SCH (09:13)
[2018-02-26] MEDS: GABAPENTIN 300 MG CAPSULE GT SCH ×3 (09:13→16:28)
[2018-02-26] MEDS: FAMOTIDINE (20 MG) 20 MG TABLET GT SCH ×2 (09:13→21:15)
[2018-02-26] MEDS: BACLOFEN (10 MG) 10 MG TABLET GT SCH ×4 (09:13→21:15)
[2018-02-26] MEDS: ACIDOPHILUS/BULGARICUS 1 EACH TAB.CHEW GT SCH ×3 (09:13→16:28)
[2018-02-26] MEDS: CALCIUM CARBONATE 500 MG TAB.CHEW GT SCH ×3 (09:14→16:28)
[2018-02-26] MEDS: MULTIVIT W/MINERALS 1 TAB TABLET GT SCH (09:14)
[2018-02-26] MEDS: ASCORBIC ACID 500 MG TABLET GT SCH ×2 (09:14→16:28)
[2018-02-26] MEDS: CALCITRIOL 0.25 MCG CAPSULE PO SCH (09:14)
--- NOTE | 2018-02-26 09:16 | NUR ---
RT NOTE RECEIVED PT MECHANICALLY VENTILATED VIA CUFFED TRACHEOSTOMY TUBE. CUFF INFLATED VIA FORMS EXAMINER. TRACH TUBE MIDLINE AND SECURE. VENTILATOR SETTINGS PRESCRIBED. ALARMS SET PER PROTOCOL AND AUDIBLE. VENT PLUGGED IN TO RED OUTLET. AMBU BAG AT BED SIDE. NO DISTRESS NOTED AT MOMENT. PT PLACED ON CA PER MD ORDER. PT AWAKE AND ALERT. CUFF DEFLATED. NO DISTRESS NOTED. Addendum: 02/26/18 at 0916 by KAJAL ARAIZA RT Amended: Links added.
[2018-02-26] MEDS: HYDROCODONE/APAP 5/325MG 1 EACH TABLET GT SCH ×2 (09:30→21:15)
[2018-02-26 20:35] VITALS: BP 123/86
[2018-02-26] MEDS: ZINC SULFATE 220 MG CAPSULE GT SCH (21:15)
[2018-02-26] MEDS: ENOXAPARIN SODIUM 40 MG/0.4 ML DISP.SYRIN SQ SCH (21:16)
[2018-02-26] MEDS: POLYETHYLENE GLYCOL 3350 17 GM POWD.PACK GT SCH (21:17)
[2018-02-26] MEDS: ATORVASTATIN 10 MG TABLET GT SCH (21:17)
[2018-02-27] MEDS: IPRATROPIUM NEB FS 0.5 MG/2.5 ML AMPUL.NEB NEB SCH ×4 (01:19→19:30)
[2018-02-27] MEDS: HYDROGEN PEROXIDE 480 ML BOTTLE TP SCH ×2 (09:00→21:00)
[2018-02-27] MEDS: NYSTATIN/TRIAMCIN 15 GM CREAM 15 GM TUBE TP SCH ×2 (09:00→21:00)
[2018-02-27] MEDS: GENTAMICIN 0.1% CREAM 15 GM TUBE TP SCH ×2 (09:00→21:00)
[2018-02-27] MEDS: HYDROGEL DRESSING 90 GM TUBE TP SCH ×4 (09:00→21:00)
[2018-02-27] MEDS: Z GUARD REMEDY 2 OZ OINT TP SCH ×2 (09:00→21:00)
[2018-02-27] MEDS: ESCITALOPRAM OXALATE (10 MG) 10 MG TABLET GT SCH (09:47)
[2018-02-27] MEDS: BACLOFEN (10 MG) 10 MG TABLET GT SCH ×4 (09:47→21:58)
[2018-02-27] MEDS: ACIDOPHILUS/BULGARICUS 1 EACH TAB.CHEW GT SCH ×3 (09:47→17:29)
[2018-02-27] MEDS: GABAPENTIN 300 MG CAPSULE GT SCH ×3 (09:48→17:29)
[2018-02-27] MEDS: METHADONE HCL 10 MG TABLET GT SCH (09:48)
[2018-02-27] MEDS: HYDROCODONE/APAP 5/325MG 1 EACH TABLET GT SCH ×2 (09:49→21:59)
[2018-02-27] MEDS: FAMOTIDINE (20 MG) 20 MG TABLET GT SCH ×2 (09:49→21:59)
[2018-02-27] MEDS: MULTIVIT W/MINERALS 1 TAB TABLET GT SCH (09:49)
[2018-02-27] MEDS: PROSTAT (PYXIS) 30 ML UDC GT SCH ×3 (09:49→17:29)
[2018-02-27] MEDS: CALCIUM CARBONATE 500 MG TAB.CHEW GT SCH ×3 (09:49→17:30)
[2018-02-27] MEDS: CALCITRIOL 0.25 MCG CAPSULE PO SCH (09:50)
[2018-02-27] MEDS: ASCORBIC ACID 500 MG TABLET GT SCH ×2 (09:50→17:30)
[2018-02-27 10:48] VITALS: BP 128/70
[2018-02-27 20:16] VITALS: BP 122/64
[2018-02-27] MEDS: ZINC SULFATE 220 MG CAPSULE GT SCH (21:59)
[2018-02-27] MEDS: ENOXAPARIN SODIUM 40 MG/0.4 ML DISP.SYRIN SQ SCH (22:00)
[2018-02-27] MEDS: POLYETHYLENE GLYCOL 3350 17 GM POWD.PACK GT SCH (22:01)
[2018-02-27] MEDS: ATORVASTATIN 10 MG TABLET GT SCH (22:01)
[2018-02-28] MEDS: IPRATROPIUM NEB FS 0.5 MG/2.5 ML AMPUL.NEB NEB SCH ×4 (01:36→20:05)
[2018-02-28 07:52] VITALS: BP 136/78
--- NOTE | 2018-02-28 08:23 | NUR ---
RT PT RECEIVED TRACHED ON THE VENT, PT TAKEN OFF VENT AND PLACED ON COOL AEROSOL PER MD ORDER. PT IS AWAKE AND ALERT. HHN TX GIVEN WITH NO ADVERSE REACTIONS. NO RESPIRATORY DISTRESS NOTED AT THIS TIME, WILL CONTINUE TO MONITOR. Addendum: 02/28/18 at 0914 by ESPERANZA HOOPER RT Amended: Links added.
[2018-02-28] MEDS: PROSTAT (PYXIS) 30 ML UDC GT SCH ×3 (09:00→17:00)
[2018-02-28] MEDS: GENTAMICIN 0.1% CREAM 15 GM TUBE TP SCH ×2 (09:00→22:20)
[2018-02-28] MEDS: FAMOTIDINE (20 MG) 20 MG TABLET GT SCH ×2 (09:00→21:46)
[2018-02-28] MEDS: BACLOFEN (10 MG) 10 MG TABLET GT SCH ×4 (09:00→21:45)
[2018-02-28] MEDS: NYSTATIN/TRIAMCIN 15 GM CREAM 15 GM TUBE TP SCH ×2 (09:00→22:20)
[2018-02-28] MEDS: MULTIVIT W/MINERALS 1 TAB TABLET GT SCH (09:00)
[2018-02-28] MEDS: HYDROGEN PEROXIDE 480 ML BOTTLE TP SCH ×2 (09:00→22:20)
[2018-02-28] MEDS: ACIDOPHILUS/BULGARICUS 1 EACH TAB.CHEW GT SCH ×3 (09:00→17:00)
[2018-02-28] MEDS: ASCORBIC ACID 500 MG TABLET GT SCH ×2 (09:00→17:00)
[2018-02-28] MEDS: CALCITRIOL 0.25 MCG CAPSULE PO SCH (09:00)
[2018-02-28] MEDS: HYDROGEL DRESSING 90 GM TUBE TP SCH ×4 (09:00→22:20)
[2018-02-28] MEDS: Z GUARD REMEDY 2 OZ OINT TP SCH ×2 (09:00→22:20)
[2018-02-28] MEDS: HYDROCODONE/APAP 5/325MG 1 EACH TABLET GT SCH ×2 (09:00→21:46)
[2018-02-28] MEDS: CALCIUM CARBONATE 500 MG TAB.CHEW GT SCH ×3 (09:00→17:00)
[2018-02-28] MEDS: GABAPENTIN 300 MG CAPSULE GT SCH ×3 (09:00→17:00)
[2018-02-28] MEDS: ESCITALOPRAM OXALATE (10 MG) 10 MG TABLET GT SCH (09:00)
[2018-02-28] MEDS: METHADONE HCL 10 MG TABLET GT SCH (09:00)
[2018-02-28 19:55] VITALS: BP 121/76
--- NOTE | 2018-02-28 21:10 | NUR ---
RT PLACED PT ON VENT PER MD ORDERS ALARMS ON AND AUDIBLE BAG AND MASK AT HOB TERRANCE ORDERED SETTINGS ON RESP DISTRESS SX THICK YELLOW SECRETIONS
[2018-02-28] MEDS: ZINC SULFATE 220 MG CAPSULE GT SCH (21:46)
[2018-02-28] MEDS: ENOXAPARIN SODIUM 40 MG/0.4 ML DISP.SYRIN SQ SCH (21:46)
[2018-02-28] MEDS: ATORVASTATIN 10 MG TABLET GT SCH (21:47)
[2018-02-28] MEDS: POLYETHYLENE GLYCOL 3350 17 GM POWD.PACK GT SCH (21:47)
[2018-03-01] MEDS: IPRATROPIUM NEB FS 0.5 MG/2.5 ML AMPUL.NEB NEB SCH ×4 (01:59→20:06)
[2018-03-01 07:58] VITALS: BP 103/55
[2018-03-01] MEDS: BACLOFEN (10 MG) 10 MG TABLET GT SCH ×4 (09:58→21:25)
[2018-03-01] MEDS: ESCITALOPRAM OXALATE (10 MG) 10 MG TABLET GT SCH (09:58)
[2018-03-01] MEDS: ACIDOPHILUS/BULGARICUS 1 EACH TAB.CHEW GT SCH ×3 (09:58→17:00)
[2018-03-01] MEDS: GABAPENTIN 300 MG CAPSULE GT SCH ×3 (09:59→17:00)
[2018-03-01] MEDS: MULTIVIT W/MINERALS 1 TAB TABLET GT SCH (09:59)
[2018-03-01] MEDS: METHADONE HCL 10 MG TABLET GT SCH (09:59)
[2018-03-01] MEDS: FAMOTIDINE (20 MG) 20 MG TABLET GT SCH ×2 (09:59→21:25)
[2018-03-01] MEDS: PROSTAT (PYXIS) 30 ML UDC GT SCH ×3 (09:59→17:00)
[2018-03-01] MEDS: CALCITRIOL 0.25 MCG CAPSULE PO SCH (09:59)
[2018-03-01] MEDS: CALCIUM CARBONATE 500 MG TAB.CHEW GT SCH ×3 (09:59→17:00)
[2018-03-01] MEDS: HYDROCODONE/APAP 5/325MG 1 EACH TABLET GT SCH ×2 (09:59→22:00)
[2018-03-01] MEDS: ASCORBIC ACID 500 MG TABLET GT SCH ×2 (09:59→17:00)
[2018-03-01] MEDS: Z GUARD REMEDY 2 OZ OINT TP SCH ×2 (10:30→22:30)
[2018-03-01] MEDS: GENTAMICIN 0.1% CREAM 15 GM TUBE TP SCH ×2 (10:30→22:30)
[2018-03-01] MEDS: NYSTATIN/TRIAMCIN 15 GM CREAM 15 GM TUBE TP SCH ×2 (10:30→22:30)
[2018-03-01] MEDS: HYDROGEN PEROXIDE 480 ML BOTTLE TP SCH ×2 (10:30→22:30)
[2018-03-01] MEDS: HYDROGEL DRESSING 90 GM TUBE TP SCH ×4 (10:30→22:30)
[2018-03-01] MEDS: MAGNESIUM HYDROXIDE 30 ML UDC GT PRN (19:11)
[2018-03-01 20:19] VITALS: BP 126/79
[2018-03-01] MEDS: ZINC SULFATE 220 MG CAPSULE GT SCH (21:25)
[2018-03-01] MEDS: ATORVASTATIN 10 MG TABLET GT SCH (21:26)
[2018-03-01] MEDS: ENOXAPARIN SODIUM 40 MG/0.4 ML DISP.SYRIN SQ SCH (21:26)
[2018-03-01] MEDS: POLYETHYLENE GLYCOL 3350 17 GM POWD.PACK GT SCH (21:26)
[2018-03-02] MEDS: IPRATROPIUM NEB FS 0.5 MG/2.5 ML AMPUL.NEB NEB SCH ×4 (01:56→19:40)
[2018-03-02 07:42] VITALS: BP 126/74
[2018-03-02] MEDS: ESCITALOPRAM OXALATE (10 MG) 10 MG TABLET GT SCH (09:31)
[2018-03-02] MEDS: ACIDOPHILUS/BULGARICUS 1 EACH TAB.CHEW GT SCH ×3 (09:31→17:59)
[2018-03-02] MEDS: BACLOFEN (10 MG) 10 MG TABLET GT SCH ×4 (09:31→21:16)
[2018-03-02] MEDS: GABAPENTIN 300 MG CAPSULE GT SCH ×3 (09:32→17:59)
[2018-03-02] MEDS: CALCIUM CARBONATE 500 MG TAB.CHEW GT SCH ×3 (09:32→17:59)
[2018-03-02] MEDS: METHADONE HCL 10 MG TABLET GT SCH (09:32)
[2018-03-02] MEDS: PROSTAT (PYXIS) 30 ML UDC GT SCH ×3 (09:32→17:59)
[2018-03-02] MEDS: FAMOTIDINE (20 MG) 20 MG TABLET GT SCH ×2 (09:32→21:16)
[2018-03-02] MEDS: ASCORBIC ACID 500 MG TABLET GT SCH ×2 (09:32→17:59)
[2018-03-02] MEDS: MULTIVIT W/MINERALS 1 TAB TABLET GT SCH (09:32)
[2018-03-02] MEDS: CALCITRIOL 0.25 MCG CAPSULE PO SCH (09:32)
--- NOTE | 2018-03-02 11:50 | NUR ---
RAVI informed the resident's [id number] Vilma about upcoming IDT meeting on Friday March 09, 2018 from 12:30-1:30PM. She noted that she will be attending in person.
[2018-03-02] MEDS: HYDROCODONE/APAP 5/325MG 1 EACH TABLET GT SCH ×2 (15:30→23:00)
[2018-03-02] MEDS: HYDROGEN PEROXIDE 480 ML BOTTLE TP SCH ×2 (16:00→23:30)
[2018-03-02] MEDS: Z GUARD REMEDY 2 OZ OINT TP SCH ×2 (16:00→23:30)
[2018-03-02] MEDS: NYSTATIN/TRIAMCIN 15 GM CREAM 15 GM TUBE TP SCH ×2 (16:00→23:30)
[2018-03-02] MEDS: HYDROGEL DRESSING 90 GM TUBE TP SCH ×4 (16:00→23:30)
[2018-03-02] MEDS: GENTAMICIN 0.1% CREAM 15 GM TUBE TP SCH ×2 (16:30→23:30)
--- NOTE | 2018-03-02 19:40 | NUR ---
RT Pt received trach and on CA. Placed pt back on vent w charted settings per MD ibrahim order. Pt tolerating well. Hhn tx given w no adverse reactions. Pt trach secure and patent w no respiratory distress noted at this time. Vent is plugged into the red outlet w alarms on and audible. Will continue to monitor. Addendum: 03/02/18 at 2147 by SUNG KERN RT Amended: Links added.
[2018-03-02 20:02] VITALS: BP 112/67
[2018-03-02] MEDS: ZINC SULFATE 220 MG CAPSULE GT SCH (21:16)
[2018-03-02] MEDS: ATORVASTATIN 10 MG TABLET GT SCH (21:19)
[2018-03-02] MEDS: ENOXAPARIN SODIUM 40 MG/0.4 ML DISP.SYRIN SQ SCH (21:19)
[2018-03-02] MEDS: POLYETHYLENE GLYCOL 3350 17 GM POWD.PACK GT SCH (21:19)
[2018-03-03] MEDS: IPRATROPIUM NEB FS 0.5 MG/2.5 ML AMPUL.NEB NEB SCH ×4 (02:07→20:12)
[2018-03-03 07:59] VITALS: BP 115/76
[2018-03-03] MEDS: ESCITALOPRAM OXALATE (10 MG) 10 MG TABLET GT SCH (08:29)
[2018-03-03] MEDS: ACIDOPHILUS/BULGARICUS 1 EACH TAB.CHEW GT SCH ×3 (08:29→16:24)
[2018-03-03] MEDS: BACLOFEN (10 MG) 10 MG TABLET GT SCH ×4 (08:29→21:13)
[2018-03-03] MEDS: METHADONE HCL 10 MG TABLET GT SCH (08:30)
[2018-03-03] MEDS: FAMOTIDINE (20 MG) 20 MG TABLET GT SCH ×2 (08:30→21:13)
[2018-03-03] MEDS: GABAPENTIN 300 MG CAPSULE GT SCH ×3 (08:30→16:24)
[2018-03-03] MEDS: MULTIVIT W/MINERALS 1 TAB TABLET GT SCH (08:31)
[2018-03-03] MEDS: PROSTAT (PYXIS) 30 ML UDC GT SCH ×3 (08:31→16:24)
[2018-03-03] MEDS: CALCIUM CARBONATE 500 MG TAB.CHEW GT SCH ×3 (08:31→16:24)
[2018-03-03] MEDS: ASCORBIC ACID 500 MG TABLET GT SCH ×2 (08:32→16:24)
[2018-03-03] MEDS: CALCITRIOL 0.25 MCG CAPSULE PO SCH (08:32)
--- NOTE | 2018-03-03 09:00 | NUR ---
RT PLACED PT ON COOL AEROSOL TERRANCE WELL NO RESP DISTRESS NOTED ATT
[2018-03-03] MEDS: HYDROCODONE/APAP 5/325MG 1 EACH TABLET GT SCH ×2 (11:35→21:16)
[2018-03-03] MEDS: GENTAMICIN 0.1% CREAM 15 GM TUBE TP SCH ×2 (12:35→21:14)
[2018-03-03] MEDS: NYSTATIN/TRIAMCIN 15 GM CREAM 15 GM TUBE TP SCH ×2 (12:35→21:13)
[2018-03-03] MEDS: Z GUARD REMEDY 2 OZ OINT TP SCH ×2 (12:35→21:13)
[2018-03-03] MEDS: HYDROGEN PEROXIDE 480 ML BOTTLE TP SCH ×2 (12:35→21:13)
[2018-03-03] MEDS: HYDROGEL DRESSING 90 GM TUBE TP SCH ×4 (12:35→22:00)
[2018-03-03 19:57] VITALS: BP 113/66
[2018-03-03] MEDS: ZINC SULFATE 220 MG CAPSULE GT SCH (21:13)
[2018-03-03] MEDS: ENOXAPARIN SODIUM 40 MG/0.4 ML DISP.SYRIN SQ SCH (21:13)
[2018-03-03] MEDS: ATORVASTATIN 10 MG TABLET GT SCH (21:14)
[2018-03-03] MEDS: POLYETHYLENE GLYCOL 3350 17 GM POWD.PACK GT SCH (21:14)
[2018-03-04] MEDS: IPRATROPIUM NEB FS 0.5 MG/2.5 ML AMPUL.NEB NEB SCH ×4 (01:37→19:40)
[2018-03-04] MEDS: HYDROCODONE/APAP 5/325MG 1 EACH TABLET GT PRN (06:07)
[2018-03-04 07:49] VITALS: BP 116/69
[2018-03-04] MEDS: HYDROGEN PEROXIDE 480 ML BOTTLE TP SCH ×2 (09:00→21:26)
[2018-03-04] MEDS: GENTAMICIN 0.1% CREAM 15 GM TUBE TP SCH ×2 (09:00→21:26)
[2018-03-04] MEDS: Z GUARD REMEDY 2 OZ OINT TP SCH ×2 (09:00→21:26)
[2018-03-04] MEDS: CALCITRIOL 0.25 MCG CAPSULE PO SCH (09:12)
[2018-03-04] MEDS: ACIDOPHILUS/BULGARICUS 1 EACH TAB.CHEW GT SCH ×3 (09:12→17:51)
[2018-03-04] MEDS: ESCITALOPRAM OXALATE (10 MG) 10 MG TABLET GT SCH (09:12)
[2018-03-04] MEDS: PROSTAT (PYXIS) 30 ML UDC GT SCH ×3 (09:12→17:51)
[2018-03-04] MEDS: ASCORBIC ACID 500 MG TABLET GT SCH ×2 (09:12→17:51)
[2018-03-04] MEDS: GABAPENTIN 300 MG CAPSULE GT SCH ×3 (09:12→17:51)
[2018-03-04] MEDS: MULTIVIT W/MINERALS 1 TAB TABLET GT SCH (09:12)
[2018-03-04] MEDS: METHADONE HCL 10 MG TABLET GT SCH (09:12)
[2018-03-04] MEDS: CALCIUM CARBONATE 500 MG TAB.CHEW GT SCH ×3 (09:12→17:51)
[2018-03-04] MEDS: FAMOTIDINE (20 MG) 20 MG TABLET GT SCH ×2 (09:12→21:25)
[2018-03-04] MEDS: BACLOFEN (10 MG) 10 MG TABLET GT SCH ×4 (09:12→21:19)
[2018-03-04] MEDS: HYDROCODONE/APAP 5/325MG 1 EACH TABLET GT SCH ×2 (11:30→21:25)
[2018-03-04 19:53] VITALS: BP 118/71
[2018-03-04] MEDS: ZINC SULFATE 220 MG CAPSULE GT SCH (21:25)
[2018-03-04] MEDS: ATORVASTATIN 10 MG TABLET GT SCH (21:26)
[2018-03-04] MEDS: POLYETHYLENE GLYCOL 3350 17 GM POWD.PACK GT SCH (21:26)
[2018-03-04] MEDS: ENOXAPARIN SODIUM 40 MG/0.4 ML DISP.SYRIN SQ SCH (21:26)
[2018-03-05] MEDS: IPRATROPIUM NEB FS 0.5 MG/2.5 ML AMPUL.NEB NEB SCH ×4 (00:33→20:27)
[2018-03-05 08:12] VITALS: BP 126/68
[2018-03-05] MEDS: Z GUARD REMEDY 2 OZ OINT TP SCH ×2 (09:00→21:15)
[2018-03-05] MEDS: GENTAMICIN 0.1% CREAM 15 GM TUBE TP SCH ×2 (09:00→21:15)
[2018-03-05] MEDS: HYDROGEN PEROXIDE 480 ML BOTTLE TP SCH ×2 (09:00→21:15)
[2018-03-05] MEDS: BACLOFEN (10 MG) 10 MG TABLET GT SCH ×4 (09:19→21:12)
[2018-03-05] MEDS: ESCITALOPRAM OXALATE (10 MG) 10 MG TABLET GT SCH (09:19)
[2018-03-05] MEDS: ACIDOPHILUS/BULGARICUS 1 EACH TAB.CHEW GT SCH ×3 (09:19→17:56)
[2018-03-05] MEDS: METHADONE HCL 10 MG TABLET GT SCH (09:20)
[2018-03-05] MEDS: GABAPENTIN 300 MG CAPSULE GT SCH ×3 (09:20→17:56)
[2018-03-05] MEDS: HYDROCODONE/APAP 5/325MG 1 EACH TABLET GT SCH ×2 (09:21→21:14)
[2018-03-05] MEDS: CALCIUM CARBONATE 500 MG TAB.CHEW GT SCH ×3 (09:21→17:56)
[2018-03-05] MEDS: ASCORBIC ACID 500 MG TABLET GT SCH ×2 (09:21→17:56)
[2018-03-05] MEDS: CALCITRIOL 0.25 MCG CAPSULE PO SCH (09:21)
[2018-03-05] MEDS: FAMOTIDINE (20 MG) 20 MG TABLET GT SCH ×2 (09:21→21:14)
[2018-03-05] MEDS: MULTIVIT W/MINERALS 1 TAB TABLET GT SCH (09:21)
[2018-03-05] MEDS: PROSTAT (PYXIS) 30 ML UDC GT SCH ×3 (09:21→17:56)
--- NOTE | 2018-03-05 18:31 | NUR ---
Late entry for 03/01/18 Dr Rafiq Diaz debrided pt's sacral, left and right buttock wounds. Pt tolerated procedure well.
[2018-03-05 19:59] VITALS: BP 124/78
--- NOTE | 2018-03-05 21:02 | NUR ---
RT PATIENT RECEIVED TRACHED ON COOL AEROSOL. PLACED PATIENT ON VENT PER NOC ORDER. NO RESP DISTRESS NOTED. HHN TX GIVEN, NO ADVERSE REACTIONS NOTED. PT SUCTIONED. ALARMS ON AND AUDIBLE. AMBU BAG/BACK UP TRACH @ BEDSIDE. VENT CONNECTED TO RED OUTLET. WILL CONT TO MONITOR. Addendum: 03/05/18 at 2102 by DAMON PAZ RT Amended: Links added.
[2018-03-05 21:11] VITALS: BP 124/78
[2018-03-05] MEDS: ZINC SULFATE 220 MG CAPSULE GT SCH (21:14)
[2018-03-05] MEDS: ATORVASTATIN 10 MG TABLET GT SCH (21:15)
[2018-03-05] MEDS: POLYETHYLENE GLYCOL 3350 17 GM POWD.PACK GT SCH (21:15)
[2018-03-05] MEDS: ENOXAPARIN SODIUM 40 MG/0.4 ML DISP.SYRIN SQ SCH (21:15)
[2018-03-06] MEDS: IPRATROPIUM NEB FS 0.5 MG/2.5 ML AMPUL.NEB NEB SCH ×4 (01:18→19:56)
[2018-03-06 07:38] VITALS: BP 149/96
[2018-03-06] MEDS: BACLOFEN (10 MG) 10 MG TABLET GT SCH ×4 (08:15→21:04)
[2018-03-06] MEDS: ESCITALOPRAM OXALATE (10 MG) 10 MG TABLET GT SCH (08:15)
[2018-03-06] MEDS: ACIDOPHILUS/BULGARICUS 1 EACH TAB.CHEW GT SCH ×3 (08:15→17:00)
[2018-03-06] MEDS: GABAPENTIN 300 MG CAPSULE GT SCH ×3 (08:16→17:00)
[2018-03-06] MEDS: CALCIUM CARBONATE 500 MG TAB.CHEW GT SCH ×3 (08:16→17:00)
[2018-03-06] MEDS: MULTIVIT W/MINERALS 1 TAB TABLET GT SCH (08:16)
[2018-03-06] MEDS: ASCORBIC ACID 500 MG TABLET GT SCH ×2 (08:16→17:00)
[2018-03-06] MEDS: CALCITRIOL 0.25 MCG CAPSULE PO SCH (08:16)
[2018-03-06] MEDS: PROSTAT (PYXIS) 30 ML UDC GT SCH ×3 (08:16→17:00)
[2018-03-06] MEDS: METHADONE HCL 10 MG TABLET GT SCH (08:16)
[2018-03-06] MEDS: FAMOTIDINE (20 MG) 20 MG TABLET GT SCH ×2 (08:16→21:05)
[2018-03-06] MEDS: HYDROCODONE/APAP 5/325MG 1 EACH TABLET GT SCH ×2 (09:30→21:05)
[2018-03-06] MEDS: HYDROGEN PEROXIDE 480 ML BOTTLE TP SCH ×2 (10:00→21:06)
[2018-03-06] MEDS: Z GUARD REMEDY 2 OZ OINT TP SCH ×2 (10:00→21:06)
[2018-03-06] MEDS: GENTAMICIN 0.1% CREAM 15 GM TUBE TP SCH ×2 (10:00→21:06)
[2018-03-06 20:36] VITALS: BP 110/60
[2018-03-06] MEDS: ZINC SULFATE 220 MG CAPSULE GT SCH (21:05)
[2018-03-06] MEDS: POLYETHYLENE GLYCOL 3350 17 GM POWD.PACK GT SCH (21:06)
[2018-03-06] MEDS: ATORVASTATIN 10 MG TABLET GT SCH (21:06)
[2018-03-06] MEDS: ENOXAPARIN SODIUM 40 MG/0.4 ML DISP.SYRIN SQ SCH (21:06)
[2018-03-07] MEDS: IPRATROPIUM NEB FS 0.5 MG/2.5 ML AMPUL.NEB NEB SCH ×4 (01:32→20:22)
[2018-03-07 08:00] VITALS: BP 104/57
[2018-03-07 08:53] LABS: BASOPHILS # (AUTO) 0.1 /CMM (0.0-0.2); BASOPHILS % (AUTO) 0.5 % (0.0-2.0); EOSINOPHILS % (AUTO) 1.1 % (0.0-6.0); HEMATOCRIT 31 % (39-51); HEMOGLOBIN 9.3 g/dL (13.5-17.5); LYMPHOCYTES # (AUTO) 1.3 /CMM (0.8-4.8); LYMPHOCYTES % (AUTO) 11.1 % (20.0-44.0); MEAN CORPUSCULAR HGB CONC 30 g/dl (31.0-36.0); MEAN CORPUSCULAR VOLUME 80 fL (80-96); MONOCYTES # (AUTO) 0.9 /CMM (0.1-1.30); MONOCYTES % (AUTO) 7.3 % (2.0-12.0); NEUTROPHILS # (AUTO) 9.5 /CMM (1.8-8.9); PLATELET COUNT (AUTO) 326 /CMM (150-450); RED BLOOD CELL COUNT(AUTO) 3.84 MIL/uL (4.5-6.0); WHITE BLOOD COUNT (AUTO) 11.8 K/uL (4.3-11.0)
[2018-03-07] MEDS: Z GUARD REMEDY 2 OZ OINT TP SCH ×2 (09:00→21:13)
[2018-03-07] MEDS: ESCITALOPRAM OXALATE (10 MG) 10 MG TABLET GT SCH (09:21)
[2018-03-07] MEDS: ACIDOPHILUS/BULGARICUS 1 EACH TAB.CHEW GT SCH ×3 (09:21→16:45)
[2018-03-07] MEDS: BACLOFEN (10 MG) 10 MG TABLET GT SCH ×4 (09:22→21:12)
[2018-03-07] MEDS: METHADONE HCL 10 MG TABLET GT SCH (09:22)
[2018-03-07] MEDS: PROSTAT (PYXIS) 30 ML UDC GT SCH ×3 (09:23→16:45)
[2018-03-07] MEDS: FAMOTIDINE (20 MG) 20 MG TABLET GT SCH ×2 (09:23→21:12)
[2018-03-07] MEDS: CALCITRIOL 0.25 MCG CAPSULE PO SCH (09:23)
[2018-03-07] MEDS: ASCORBIC ACID 500 MG TABLET GT SCH ×2 (09:23→16:45)
[2018-03-07] MEDS: GABAPENTIN 300 MG CAPSULE GT SCH ×3 (09:23→16:45)
[2018-03-07] MEDS: CALCIUM CARBONATE 500 MG TAB.CHEW GT SCH ×3 (09:23→16:45)
[2018-03-07] MEDS: MULTIVIT W/MINERALS 1 TAB TABLET GT SCH (09:23)
--- NOTE | 2018-03-07 09:47 | NUR ---
RT PT REC'D TRACHED ON THE VENT, PT TAKEN OFF VENT AND PLACED ON COOL AEROSOL PER MD ORDER. PT IS AWAKE AND ALERT. HHN TX GIVEN WITH NO ADVERSE REACTIONS. NO SOB, NO RESPIRATORY DISTRESS NOTED AT THIS TIME, WILL CONTINUE TO MONITOR. Addendum: 03/07/18 at 0948 by BUFFY SHERWOOD RT Amended: Links added.
--- NOTE | 2018-03-07 10:20 | NUR ---
Notified Dr. Walker of CBC result, WBC 11.8, currently with T 100.1, 106, 14, 106/59. Resident awake but does not feel well. New order given to collect UA/CS, CXR and BC x 2. Left a message to patient's sister in law regarding change in condition and new orders.
[2018-03-07] MEDS: HYDROCODONE/APAP 5/325MG 1 EACH TABLET GT SCH ×2 (10:55→21:13)
[2018-03-07] MEDS: HYDROGEN PEROXIDE 480 ML BOTTLE TP SCH ×2 (11:55→21:13)
[2018-03-07] MEDS: GENTAMICIN 0.1% CREAM 15 GM TUBE TP SCH ×2 (11:55→21:13)
[2018-03-07 12:12] LABS: APPEARANCE,URINE CLOUDY (CLEAR); BILIRUBIN,URINE NEGATIVE (NEGATIVE); BLOOD, URINE TRACE Ery/uL (NEGATIVE); COLOR,URINE YELLOW (YELLOW); KETONES,URINE NEGATIVE (NEGATIVE); LEUKOCYTE ESTERASE ,URINE 3+ (NEGATIVE); NITRITE, URINE NEGATIVE (NEGATIVE); PROTEIN,URINE TRACE mg/dl (NEGATIVE); UGLUCOSE NEGATIVE (NEGATIVE); UROBILINOGEN,URINE 0.2 EU/dL (0.2)
[2018-03-07 12:17] LABS: BACTERIA,URINE Moderate /HPF (None Seen); RBC,URINE 0-2 /HPF (0-2); SQUAMOUS EPITHELIAL CELL,UR Few /HPF (None Seen)
--- NOTE | 2018-03-07 17:14 | NUR ---
Notified Dr. Walker of Chest X-ray result, BC and Urine C/S pending. New order given to start patient on Cefepime and Vancomycin per pharmacy to dose. Order faxed to [facility] pharmacy. Spoke with Charlotte from IV pharmacy to follow-up IV medication dosing, she said that as soon as it is calculated they will call or fax the recommendations. Notified Vilma, sister in law of new order.
--- NOTE | 2018-03-07 18:28 | NUR ---
GARMENT TAG STRINGER Stan Pittman came and said she reviewed patient's lab results, UA and CXR and started patient on IV Cefepime and Vancomycin with pharmacy to dose. Order carried out and faxed to [facility] pharmacy.
--- NOTE | 2018-03-07 18:55 | NUR ---
Spoke with Tonie from [facility] IV department to follow-up Vancomycin dosing, she said that IV pharmacist not available at this time but to call back after 10 minutes. Endorsed.
[2018-03-07 19:58] LABS: CALCIUM, SERUM 8.8 mg/dL (8.5-10.1); CREATININE 0.9 mg/dL (0.6-1.3); POTASSIUM 4.8 mmol/L (3.5-5.1)
[2018-03-07 20:02] VITALS: BP 112/79
[2018-03-07] MEDS: CEFEPIME 1 GM in IV D5W 50 ML IV SCH (21:00)
[2018-03-07] MEDS ORDERED: VANCOMYCIN 1 GM in IV D5W 250 ML IV ONE (21:00)
[2018-03-07] MEDS: ZINC SULFATE 220 MG CAPSULE GT SCH (21:12)
[2018-03-07] MEDS: ATORVASTATIN 10 MG TABLET GT SCH (21:13)
[2018-03-07] MEDS: POLYETHYLENE GLYCOL 3350 17 GM POWD.PACK GT SCH (21:13)
[2018-03-07] MEDS: ENOXAPARIN SODIUM 40 MG/0.4 ML DISP.SYRIN SQ SCH (21:13)
[2018-03-08] MEDS: IPRATROPIUM NEB FS 0.5 MG/2.5 ML AMPUL.NEB NEB SCH ×4 (01:23→19:51)
[2018-03-08] MEDS: HYDROCODONE/APAP 5/325MG 1 EACH TABLET GT PRN ×2 (02:15→06:21)
--- NOTE | 2018-03-08 06:12 | NUR ---
Pt started on IV antibiotic ,Cefepime 1 gm q 12hrs x5 days and Vancomycin 1 gm given dose by So Pharmacist.No reaction noted.Afebrile during the night and no respiratory distress.Will continue to monitor.
--- NOTE | 2018-03-08 07:28 | NUR ---
RT NOTE: PATIENT PLACED ON COOL AEROSOL PER MD ORDER. PATIENT IS TOLERATING WELL. PT40=781%. WILL CONTINUE TO MONITOR.
[2018-03-08 07:32] LABS: CREATININE 0.8 mg/dL (0.6-1.3); POTASSIUM 4.2 mmol/L (3.5-5.1)
[2018-03-08] MEDS ORDERED: FEE PK DOSING 1 MIN EA MC ONE (07:41)
[2018-03-08] MEDS ORDERED: VANCOMYCIN 1 GM in IV D5W 250 ML IV SCH (09:00)
[2018-03-08] MEDS: CEFEPIME 1 GM in IV D5W 50 ML IV SCH ×2 (09:00→20:55)
[2018-03-08] MEDS: METHADONE HCL 10 MG TABLET GT SCH (09:12)
[2018-03-08] MEDS: BACLOFEN (10 MG) 10 MG TABLET GT SCH ×4 (09:38→20:59)
[2018-03-08] MEDS: MULTIVIT W/MINERALS 1 TAB TABLET GT SCH (09:38)
[2018-03-08] MEDS: GABAPENTIN 300 MG CAPSULE GT SCH ×3 (09:38→17:03)
[2018-03-08] MEDS: PROSTAT (PYXIS) 30 ML UDC GT SCH ×3 (09:38→17:03)
[2018-03-08] MEDS: ACIDOPHILUS/BULGARICUS 1 EACH TAB.CHEW GT SCH ×3 (09:38→17:03)
[2018-03-08] MEDS: ESCITALOPRAM OXALATE (10 MG) 10 MG TABLET GT SCH (09:38)
[2018-03-08] MEDS: CALCIUM CARBONATE 500 MG TAB.CHEW GT SCH ×3 (09:38→17:03)
[2018-03-08] MEDS: ASCORBIC ACID 500 MG TABLET GT SCH ×2 (09:38→17:03)
[2018-03-08] MEDS: CALCITRIOL 0.25 MCG CAPSULE PO SCH (09:39)
[2018-03-08] MEDS: FAMOTIDINE (20 MG) 20 MG TABLET GT SCH ×2 (09:39→21:00)
[2018-03-08] MEDS: HYDROCODONE/APAP 5/325MG 1 EACH TABLET GT SCH ×2 (11:05→20:30)
[2018-03-08 12:00] VITALS: BP 112/63
[2018-03-08] MEDS: GENTAMICIN 0.1% CREAM 15 GM TUBE TP SCH ×2 (12:05→21:01)
[2018-03-08] MEDS: HYDROGEN PEROXIDE 480 ML BOTTLE TP SCH ×2 (12:05→21:01)
[2018-03-08] MEDS: Z GUARD REMEDY 2 OZ OINT TP SCH ×2 (12:05→21:02)
[2018-03-08 19:49] VITALS: BP 122/70
--- NOTE | 2018-03-08 19:54 | NUR ---
Patient received on 35% aerosol t-tube then placed back on vent support with settings of AC 12, 450 Vt, 40%. Suctioned with lavage for minimal, thin, yellow secretions. Given in-line treatments with no adverse reactions. Ambu bag at bedside. Vent and pulse oximeter alarms audible and visible. Vent plugged into red outlet. Addendum: 03/08/18 at 5 by ROLY BECERRIL RT Amended: Links added.
[2018-03-08] MEDS: ZINC SULFATE 220 MG CAPSULE GT SCH (21:00)
[2018-03-08] MEDS: ENOXAPARIN SODIUM 40 MG/0.4 ML DISP.SYRIN SQ SCH (21:01)
[2018-03-08] MEDS: NYSTATIN/TRIAMCIN 15 GM CREAM 15 GM TUBE TP SCH (21:01)
[2018-03-08] MEDS: HYDROGEL DRESSING 90 GM TUBE TP SCH ×2 (21:01)
[2018-03-08] MEDS: POLYETHYLENE GLYCOL 3350 17 GM POWD.PACK GT SCH (21:02)
[2018-03-08] MEDS: ATORVASTATIN 10 MG TABLET GT SCH (21:02)
[2018-03-08] MEDS: VANCOMYCIN 1 GM in IV D5W 250 ML IV SCH (21:35)
[2018-03-09] MEDS: IPRATROPIUM NEB FS 0.5 MG/2.5 ML AMPUL.NEB NEB SCH ×4 (02:28→19:23)
[2018-03-09 07:44] VITALS: BP 112/65
[2018-03-09 08:20] LABS: CALCIUM, SERUM 8.5 mg/dL (8.5-10.1); CREATININE 0.9 mg/dL (0.6-1.3); POTASSIUM 4.1 mmol/L (3.5-5.1)
[2018-03-09] MEDS: HYDROCODONE/APAP 5/325MG 1 EACH TABLET GT SCH ×2 (09:00→20:40)
[2018-03-09] MEDS: NYSTATIN/TRIAMCIN 15 GM CREAM 15 GM TUBE TP SCH ×2 (09:00→20:40)
[2018-03-09] MEDS: Z GUARD REMEDY 2 OZ OINT TP SCH ×2 (09:00→20:40)
[2018-03-09] MEDS: HYDROGEN PEROXIDE 480 ML BOTTLE TP SCH ×2 (09:00→20:40)
[2018-03-09] MEDS: MULTIVIT W/MINERALS 1 TAB TABLET GT SCH (09:00)
[2018-03-09] MEDS: HYDROGEL DRESSING 90 GM TUBE TP SCH ×4 (09:00→21:04)
[2018-03-09] MEDS: CEFEPIME 1 GM in IV D5W 50 ML IV SCH ×2 (09:00→20:58)
[2018-03-09] MEDS: GENTAMICIN 0.1% CREAM 15 GM TUBE TP SCH ×2 (09:00→20:40)
--- NOTE | 2018-03-09 09:34 | NUR ---
Spoke with Michelle from [facility] pharmacy regarding Vancomycin trough level collected this AM - 20ug/ml. She said to fax the result and will fax the recommendations to the facility. Result faxed to [facility].
[2018-03-09] MEDS: GABAPENTIN 300 MG CAPSULE GT SCH ×3 (09:50→17:41)
[2018-03-09] MEDS: ACIDOPHILUS/BULGARICUS 1 EACH TAB.CHEW GT SCH ×3 (09:50→17:41)
[2018-03-09] MEDS: BACLOFEN (10 MG) 10 MG TABLET GT SCH ×4 (09:50→20:39)
[2018-03-09] MEDS: ESCITALOPRAM OXALATE (10 MG) 10 MG TABLET GT SCH (09:50)
[2018-03-09] MEDS: PROSTAT (PYXIS) 30 ML UDC GT SCH ×3 (09:53→17:42)
[2018-03-09] MEDS: METHADONE HCL 10 MG TABLET GT SCH (09:53)
[2018-03-09] MEDS: FAMOTIDINE (20 MG) 20 MG TABLET GT SCH ×2 (09:53→20:40)
[2018-03-09] MEDS: CALCIUM CARBONATE 500 MG TAB.CHEW GT SCH ×3 (09:54→17:42)
[2018-03-09] MEDS: CALCITRIOL 0.25 MCG CAPSULE PO SCH (09:54)
[2018-03-09] MEDS: ASCORBIC ACID 500 MG TABLET GT SCH ×2 (09:54→17:42)
--- NOTE | 2018-03-09 10:31 | NUR ---
Spoke with ANNALISE Mitchell from [facility] to follow-up if Vancomycin should be given (T 20ug/ml) . He said it is OK to give. Will follow-up with ID CURING OVEN ATTENDANT regarding duration of therapy.
[2018-03-09] MEDS: VANCOMYCIN 1 GM in IV D5W 250 ML IV SCH (10:35)
--- NOTE | 2018-03-09 14:03 | NUR ---
INTERDISCIPLINARY PLAN OF CARE CONFERENCE was held today. Resident's sister in law Esparza attended today's IDT meeting. Dr. Ugarte and the interdisciplinary team discussed the current plan of care in detail. Current orders as well as treatments and medications were reviewed. Resident continue on IV ATB for UTI/Pneumonia (Cefepime and Vancomycin). No adverse reaction. Continue treatment in the sacral, R buttock, L buttock and the upper mid back. Patient sister in said that patient looks good and communicating using PMV.
--- NOTE | 2018-03-09 16:01 | NUR ---
Left a message to CARLI Ortiz and reported final urine culture result, also asked for stop date for Vancomycin. Awaiting for return call.
[2018-03-09 19:52] VITALS: BP 134/87
--- NOTE | 2018-03-09 20:20 | NUR ---
PT RCKRIS TRACH'D ON COOL AEROSOL. PLACED ON MECHANICAL VENT PER MD ORDERS WITH CHARTED SETTINGS. HHN TX GIVEN AND NO ADVERSE REACTION NOTED. SX DONE. PT TRACH PATENT AND SECURE. ALARMS ARE SET AND AUDIBLE. VENT PLUGGED INTO RED OUTLET. AMBU BAG AT BEDSIDE. WILL CONTINUE TO MONITOR. Addendum: 03/09/18 at 2020 by LUCIANA TRIMBLE RT Amended: Links added.
[2018-03-09] MEDS ORDERED: LEVOFLOXACIN (500MG) 500 MG TABLET GT SCH (20:34)
[2018-03-09] MEDS: ENOXAPARIN SODIUM 40 MG/0.4 ML DISP.SYRIN SQ SCH (20:40)
[2018-03-09] MEDS: ZINC SULFATE 220 MG CAPSULE GT SCH (20:40)
[2018-03-09] MEDS: POLYETHYLENE GLYCOL 3350 17 GM POWD.PACK GT SCH (21:04)
[2018-03-09] MEDS: ATORVASTATIN 10 MG TABLET GT SCH (21:04)
[2018-03-10] MEDS: IPRATROPIUM NEB FS 0.5 MG/2.5 ML AMPUL.NEB NEB SCH ×4 (01:05→19:18)
[2018-03-10 06:48] LABS: CALCIUM, SERUM 8.7 mg/dL (8.5-10.1); CREATININE 0.8 mg/dL (0.6-1.3); POTASSIUM 4.4 mmol/L (3.5-5.1)
--- NOTE | 2018-03-10 07:35 | NUR ---
pt is awake and follow commands placed into cool aerosol as order for daily weaning. Addendum: 03/10/18 at 0736 by JAYLENE STORY RT Amended: Links added.
[2018-03-10] MEDS: PROSTAT (PYXIS) 30 ML UDC GT SCH ×3 (08:00→17:35)
[2018-03-10] MEDS: FAMOTIDINE (20 MG) 20 MG TABLET GT SCH ×2 (08:00→20:25)
[2018-03-10] MEDS: METHADONE HCL 10 MG TABLET GT SCH (08:00)
[2018-03-10] MEDS: GABAPENTIN 300 MG CAPSULE GT SCH ×3 (08:00→17:35)
[2018-03-10] MEDS: ACIDOPHILUS/BULGARICUS 1 EACH TAB.CHEW GT SCH ×3 (08:00→17:35)
[2018-03-10] MEDS: ASCORBIC ACID 500 MG TABLET GT SCH ×2 (08:00→17:35)
[2018-03-10] MEDS: BACLOFEN (10 MG) 10 MG TABLET GT SCH ×4 (08:00→20:25)
[2018-03-10] MEDS: MULTIVIT W/MINERALS 1 TAB TABLET GT SCH (08:00)
[2018-03-10] MEDS: ESCITALOPRAM OXALATE (10 MG) 10 MG TABLET GT SCH (08:00)
[2018-03-10] MEDS: CALCITRIOL 0.25 MCG CAPSULE PO SCH (08:00)
[2018-03-10] MEDS: CALCIUM CARBONATE 500 MG TAB.CHEW GT SCH ×3 (08:00→17:35)
[2018-03-10 08:03] VITALS: BP 127/85
[2018-03-10] MEDS: CEFEPIME 1 GM in IV D5W 50 ML IV SCH ×2 (09:00→21:00)
[2018-03-10] MEDS: VANCOMYCIN HCL 0.75 GM in IV D5W 250 ML IV SCH ×2 (09:40→21:00)
[2018-03-10] MEDS: HYDROCODONE/APAP 5/325MG 1 EACH TABLET GT SCH ×2 (11:20→20:25)
[2018-03-10] MEDS: GENTAMICIN 0.1% CREAM 15 GM TUBE TP SCH ×2 (12:20→20:26)
[2018-03-10] MEDS: HYDROGEN PEROXIDE 480 ML BOTTLE TP SCH ×2 (12:20→20:26)
[2018-03-10] MEDS: NYSTATIN/TRIAMCIN 15 GM CREAM 15 GM TUBE TP SCH ×2 (12:20→20:26)
[2018-03-10] MEDS: HYDROGEL DRESSING 90 GM TUBE TP SCH ×4 (12:20→20:26)
[2018-03-10] MEDS: Z GUARD REMEDY 2 OZ OINT TP SCH ×2 (12:20→20:26)
[2018-03-10 20:22] VITALS: BP 129/75
[2018-03-10] MEDS: ZINC SULFATE 220 MG CAPSULE GT SCH (20:25)
[2018-03-10] MEDS: ENOXAPARIN SODIUM 40 MG/0.4 ML DISP.SYRIN SQ SCH (20:26)
--- NOTE | 2018-03-10 21:12 | NUR ---
PATIENT WAS RECEIVED ON CONTINUOUS VENT SUPPORT ON NOTED VENT SETTINGS. INDUSTRIAL MAINTENANCE TECHNICIAN DONE. AMBU BAG @ BEDSIDE. Q6 BREATHING TX GIVEN WITH NO ADVERSE REACTION NOTED. SUCTION DONE PRN.TRACH TUBE PATENT AND SECURED. ALARMS ON AND AUDIBLE. NO RESPIRATORY DISTRESS NOTED AT THIS TIME. WILL CONTINUE TO MONITOR PATIENT. Addendum: 03/10/18 at 2113 by ROM ARAIZA RT Amended: Links added.
[2018-03-10] MEDS: ATORVASTATIN 10 MG TABLET GT SCH (21:28)
[2018-03-10] MEDS: POLYETHYLENE GLYCOL 3350 17 GM POWD.PACK GT SCH (21:28)
[2018-03-11] MEDS: IPRATROPIUM NEB FS 0.5 MG/2.5 ML AMPUL.NEB NEB SCH ×4 (01:22→20:14)
[2018-03-11] MEDS: MAGNESIUM HYDROXIDE 30 ML UDC GT PRN (05:35)
[2018-03-11 08:07] LABS: CREATININE 0.7 mg/dL (0.6-1.3); POTASSIUM 4.8 mmol/L (3.5-5.1)
[2018-03-11] MEDS: ESCITALOPRAM OXALATE (10 MG) 10 MG TABLET GT SCH (08:42)
[2018-03-11] MEDS: ACIDOPHILUS/BULGARICUS 1 EACH TAB.CHEW GT SCH ×3 (08:42→16:55)
[2018-03-11] MEDS: CALCIUM CARBONATE 500 MG TAB.CHEW GT SCH ×3 (08:43→16:55)
[2018-03-11] MEDS: BACLOFEN (10 MG) 10 MG TABLET GT SCH ×4 (08:43→20:42)
[2018-03-11] MEDS: FAMOTIDINE (20 MG) 20 MG TABLET GT SCH ×2 (08:43→20:42)
[2018-03-11] MEDS: METHADONE HCL 10 MG TABLET GT SCH (08:43)
[2018-03-11] MEDS: GABAPENTIN 300 MG CAPSULE GT SCH ×3 (08:43→16:55)
[2018-03-11] MEDS: PROSTAT (PYXIS) 30 ML UDC GT SCH ×3 (08:43→16:55)
[2018-03-11] MEDS: ASCORBIC ACID 500 MG TABLET GT SCH ×2 (08:43→16:54)
[2018-03-11] MEDS: MULTIVIT W/MINERALS 1 TAB TABLET GT SCH (08:43)
[2018-03-11] MEDS: CALCITRIOL 0.25 MCG CAPSULE PO SCH (08:43)
[2018-03-11] MEDS: HYDROGEL DRESSING 90 GM TUBE TP SCH ×4 (09:00→20:42)
[2018-03-11] MEDS: CEFEPIME 1 GM in IV D5W 50 ML IV SCH ×2 (09:00→21:41)
[2018-03-11] MEDS: GENTAMICIN 0.1% CREAM 15 GM TUBE TP SCH ×2 (09:00→20:42)
[2018-03-11] MEDS: NYSTATIN/TRIAMCIN 15 GM CREAM 15 GM TUBE TP SCH ×2 (09:00→20:42)
[2018-03-11] MEDS: HYDROGEN PEROXIDE 480 ML BOTTLE TP SCH ×2 (09:00→20:42)
[2018-03-11] MEDS: Z GUARD REMEDY 2 OZ OINT TP SCH ×2 (09:00→20:42)
[2018-03-11] MEDS: HYDROCODONE/APAP 5/325MG 1 EACH TABLET GT SCH ×2 (09:30→20:51)
[2018-03-11] MEDS: VANCOMYCIN HCL 0.75 GM in IV D5W 250 ML IV SCH ×2 (10:00→21:00)
[2018-03-11 12:36] VITALS: BP 114/74
[2018-03-11 20:35] VITALS: BP 113/72
[2018-03-11] MEDS: ZINC SULFATE 220 MG CAPSULE GT SCH (20:42)
[2018-03-11] MEDS: POLYETHYLENE GLYCOL 3350 17 GM POWD.PACK GT SCH (21:01)
[2018-03-11] MEDS: ATORVASTATIN 10 MG TABLET GT SCH (21:01)
[2018-03-11] MEDS: ENOXAPARIN SODIUM 40 MG/0.4 ML DISP.SYRIN SQ SCH (21:30)
[2018-03-12] MEDS: IPRATROPIUM NEB FS 0.5 MG/2.5 ML AMPUL.NEB NEB SCH ×4 (02:26→20:17)
[2018-03-12] MEDS: HYDROCODONE/APAP 5/325MG 1 EACH TABLET GT PRN (05:27)
[2018-03-12 07:54] VITALS: BP 141/81
[2018-03-12] MEDS: CEFEPIME 1 GM in IV D5W 50 ML IV SCH ×2 (09:00→21:40)
[2018-03-12] MEDS: VANCOMYCIN HCL 0.75 GM in IV D5W 250 ML IV SCH (09:00)
[2018-03-12] MEDS: ESCITALOPRAM OXALATE (10 MG) 10 MG TABLET GT SCH (09:20)
[2018-03-12] MEDS: BACLOFEN (10 MG) 10 MG TABLET GT SCH ×4 (09:20→20:34)
[2018-03-12] MEDS: ACIDOPHILUS/BULGARICUS 1 EACH TAB.CHEW GT SCH ×3 (09:20→17:18)
[2018-03-12] MEDS: METHADONE HCL 10 MG TABLET GT SCH (09:21)
[2018-03-12] MEDS: GABAPENTIN 300 MG CAPSULE GT SCH ×3 (09:23→17:18)
[2018-03-12] MEDS: CALCIUM CARBONATE 500 MG TAB.CHEW GT SCH ×3 (09:24→17:18)
[2018-03-12] MEDS: FAMOTIDINE (20 MG) 20 MG TABLET GT SCH ×2 (09:24→20:35)
[2018-03-12] MEDS: PROSTAT (PYXIS) 30 ML UDC GT SCH ×3 (09:24→17:18)
[2018-03-12] MEDS: CALCITRIOL 0.25 MCG CAPSULE PO SCH (09:24)
[2018-03-12] MEDS: ASCORBIC ACID 500 MG TABLET GT SCH ×2 (09:24→17:18)
[2018-03-12] MEDS: MULTIVIT W/MINERALS 1 TAB TABLET GT SCH (09:24)
[2018-03-12 09:55] LABS: CALCIUM, SERUM 8.8 mg/dL (8.5-10.1); CREATININE 0.8 mg/dL (0.6-1.3); POTASSIUM 4.7 mmol/L (3.5-5.1)
[2018-03-12] MEDS: HYDROCODONE/APAP 5/325MG 1 EACH TABLET GT SCH ×2 (10:00→20:35)
[2018-03-12] MEDS: GENTAMICIN 0.1% CREAM 15 GM TUBE TP SCH ×2 (11:00→21:12)
[2018-03-12] MEDS: HYDROGEN PEROXIDE 480 ML BOTTLE TP SCH ×2 (11:00→21:12)
[2018-03-12] MEDS: NYSTATIN/TRIAMCIN 15 GM CREAM 15 GM TUBE TP SCH ×2 (11:00→21:13)
[2018-03-12] MEDS: HYDROGEL DRESSING 90 GM TUBE TP SCH ×4 (11:00→21:12)
[2018-03-12] MEDS: Z GUARD REMEDY 2 OZ OINT TP SCH ×2 (11:00→21:13)
--- NOTE | 2018-03-12 12:20 | NUR ---
Pt's nares negative for MRSA. Received order to DC contact isolation for MRSA nares. Notified merchandise flow manager Shasta.
[2018-03-12 19:58] VITALS: BP 120/79
[2018-03-12] MEDS: ZINC SULFATE 220 MG CAPSULE GT SCH (20:35)
[2018-03-12] MEDS: ENOXAPARIN SODIUM 40 MG/0.4 ML DISP.SYRIN SQ SCH (20:37)
[2018-03-12] MEDS: ATORVASTATIN 10 MG TABLET GT SCH (21:13)
[2018-03-12] MEDS: POLYETHYLENE GLYCOL 3350 17 GM POWD.PACK GT SCH (21:13)
[2018-03-13] MEDS: IPRATROPIUM NEB FS 0.5 MG/2.5 ML AMPUL.NEB NEB SCH ×4 (01:09→19:48)
[2018-03-13 07:41] VITALS: BP 127/79
[2018-03-13 08:06] LABS: CALCIUM, SERUM 9.2 mg/dL (8.5-10.1); CREATININE 0.8 mg/dL (0.6-1.3); POTASSIUM 4.6 mmol/L (3.5-5.1)
[2018-03-13] MEDS: ESCITALOPRAM OXALATE (10 MG) 10 MG TABLET GT SCH (09:07)
[2018-03-13] MEDS: FAMOTIDINE (20 MG) 20 MG TABLET GT SCH ×2 (09:07→20:53)
[2018-03-13] MEDS: MULTIVIT W/MINERALS 1 TAB TABLET GT SCH (09:07)
[2018-03-13] MEDS: CALCIUM CARBONATE 500 MG TAB.CHEW GT SCH ×3 (09:07→17:25)
[2018-03-13] MEDS: METHADONE HCL 10 MG TABLET GT SCH (09:07)
[2018-03-13] MEDS: CALCITRIOL 0.25 MCG CAPSULE PO SCH (09:07)
[2018-03-13] MEDS: GABAPENTIN 300 MG CAPSULE GT SCH ×3 (09:07→17:25)
[2018-03-13] MEDS: BACLOFEN (10 MG) 10 MG TABLET GT SCH ×4 (09:07→20:53)
[2018-03-13] MEDS: ACIDOPHILUS/BULGARICUS 1 EACH TAB.CHEW GT SCH ×3 (09:07→17:24)
[2018-03-13] MEDS: PROSTAT (PYXIS) 30 ML UDC GT SCH ×3 (09:07→17:25)
[2018-03-13] MEDS: ASCORBIC ACID 500 MG TABLET GT SCH ×2 (09:07→17:25)
[2018-03-13] MEDS: HYDROCODONE/APAP 5/325MG 1 EACH TABLET GT SCH ×2 (09:30→19:59)
[2018-03-13] MEDS: NYSTATIN/TRIAMCIN 15 GM CREAM 15 GM TUBE TP SCH ×2 (10:00→20:54)
[2018-03-13] MEDS: GENTAMICIN 0.1% CREAM 15 GM TUBE TP SCH ×2 (10:00→20:54)
[2018-03-13] MEDS: HYDROGEL DRESSING 90 GM TUBE TP SCH ×4 (10:00→20:53)
[2018-03-13] MEDS: Z GUARD REMEDY 2 OZ OINT TP SCH ×2 (10:00→20:54)
[2018-03-13] MEDS: HYDROGEN PEROXIDE 480 ML BOTTLE TP SCH ×2 (10:00→20:54)
[2018-03-13] MEDS: LEVOFLOXACIN (500MG) 500 MG TABLET GT SCH (17:24)
--- NOTE | 2018-03-13 19:56 | NUR ---
PATIENT REPORTED SEVERE PAIN REQUESTING PAIN MEDICATION, SCHEDULED ROUTINE MEDICATION NORCO TO BE GIVEN A LITTLE AHEAD OF TIME. VITAL SIGNS TAKEN WITHIN NORMAL RANGE WILL MONITOR.
[2018-03-13 20:00] VITALS: BP 125/73
[2018-03-13 20:19] VITALS: BP 125/73
[2018-03-13] MEDS: ZINC SULFATE 220 MG CAPSULE GT SCH (20:53)
[2018-03-13] MEDS: ATORVASTATIN 10 MG TABLET GT SCH (20:54)
[2018-03-13] MEDS: POLYETHYLENE GLYCOL 3350 17 GM POWD.PACK GT SCH (20:55)
--- NOTE | 2018-03-13 20:55 | NUR ---
PATIENT HAD LOOSE STOOL AND HAD BM 5 TIMES REPORTED BY AM MATERIAL SPREADER TO HOLD ROUTINE MIRALAX,
[2018-03-13] MEDS: ENOXAPARIN SODIUM 40 MG/0.4 ML DISP.SYRIN SQ SCH (20:59)
[2018-03-14] MEDS: IPRATROPIUM NEB FS 0.5 MG/2.5 ML AMPUL.NEB NEB SCH ×4 (02:23→19:32)
[2018-03-14 07:46] VITALS: BP 119/73
[2018-03-14] MEDS: NYSTATIN/TRIAMCIN 15 GM CREAM 15 GM TUBE TP SCH ×2 (09:00→21:37)
[2018-03-14] MEDS: Z GUARD REMEDY 2 OZ OINT TP SCH ×2 (09:00→21:37)
[2018-03-14] MEDS: GENTAMICIN 0.1% CREAM 15 GM TUBE TP SCH ×2 (09:00→21:37)
[2018-03-14] MEDS: HYDROGEL DRESSING 90 GM TUBE TP SCH ×4 (09:00→21:37)
[2018-03-14] MEDS: HYDROGEN PEROXIDE 480 ML BOTTLE TP SCH ×2 (09:00→21:37)
[2018-03-14] MEDS: ACIDOPHILUS/BULGARICUS 1 EACH TAB.CHEW GT SCH ×3 (09:38→17:12)
[2018-03-14] MEDS: LEVOFLOXACIN (500MG) 500 MG TABLET GT SCH (09:38)
[2018-03-14] MEDS: GABAPENTIN 300 MG CAPSULE GT SCH ×3 (09:39→17:12)
[2018-03-14] MEDS: CALCITRIOL 0.25 MCG CAPSULE PO SCH (09:39)
[2018-03-14] MEDS: METHADONE HCL 10 MG TABLET GT SCH (09:39)
[2018-03-14] MEDS: FAMOTIDINE (20 MG) 20 MG TABLET GT SCH ×2 (09:39→20:51)
[2018-03-14] MEDS: ESCITALOPRAM OXALATE (10 MG) 10 MG TABLET GT SCH (09:39)
[2018-03-14] MEDS: BACLOFEN (10 MG) 10 MG TABLET GT SCH ×4 (09:39→20:51)
[2018-03-14] MEDS: HYDROCODONE/APAP 5/325MG 1 EACH TABLET GT SCH ×2 (09:39→20:51)
[2018-03-14] MEDS: MULTIVIT W/MINERALS 1 TAB TABLET GT SCH (09:39)
[2018-03-14] MEDS: PROSTAT (PYXIS) 30 ML UDC GT SCH ×3 (09:39→17:12)
[2018-03-14] MEDS: CALCIUM CARBONATE 500 MG TAB.CHEW GT SCH ×3 (09:39→17:12)
[2018-03-14] MEDS: ASCORBIC ACID 500 MG TABLET GT SCH ×2 (09:39→17:12)
--- NOTE | 2018-03-14 19:32 | NUR ---
PT RCVD TRACH'D ON COOL AEROSOL. PLACED BACK ON MECHANICAL VENT PER MD ORDERS WITH NOTED SETTINGS. BREATHING TX GIVEN AND NO ADVERSE REACTION NOTED. SUCTIONED MODERATE AMOUNT OF YELLOW THICK SECRETIONS. PT TRACH PATENT AND SECURE. ALARMS ARE SET AND AUDIBLE. VENT PLUGGED INTO RED OUTLET. AMBU BAG AT BEDSIDE. WILL CONTINUE TO MONITOR.
[2018-03-14 20:40] VITALS: BP 115/77
[2018-03-14] MEDS: ZINC SULFATE 220 MG CAPSULE GT SCH (20:51)
[2018-03-14] MEDS: ENOXAPARIN SODIUM 40 MG/0.4 ML DISP.SYRIN SQ SCH (20:52)
[2018-03-14] MEDS: POLYETHYLENE GLYCOL 3350 17 GM POWD.PACK GT SCH (21:37)
[2018-03-14] MEDS: ATORVASTATIN 10 MG TABLET GT SCH (21:37)
[2018-03-15] MEDS: IPRATROPIUM NEB FS 0.5 MG/2.5 ML AMPUL.NEB NEB SCH ×4 (00:42→19:36)
[2018-03-15 08:04] VITALS: BP 120/74
[2018-03-15] MEDS: GENTAMICIN 0.1% CREAM 15 GM TUBE TP SCH ×2 (09:00→20:04)
[2018-03-15] MEDS: HYDROGEL DRESSING 90 GM TUBE TP SCH ×4 (09:00→20:04)
[2018-03-15] MEDS: HYDROGEN PEROXIDE 480 ML BOTTLE TP SCH ×2 (09:00→20:04)
[2018-03-15] MEDS: NYSTATIN/TRIAMCIN 15 GM CREAM 15 GM TUBE TP SCH ×2 (09:00→20:04)
[2018-03-15] MEDS: Z GUARD REMEDY 2 OZ OINT TP SCH ×2 (09:00→20:04)
[2018-03-15] MEDS: LEVOFLOXACIN (500MG) 500 MG TABLET GT SCH (09:28)
[2018-03-15] MEDS: ESCITALOPRAM OXALATE (10 MG) 10 MG TABLET GT SCH (09:28)
[2018-03-15] MEDS: BACLOFEN (10 MG) 10 MG TABLET GT SCH ×4 (09:28→20:03)
[2018-03-15] MEDS: ACIDOPHILUS/BULGARICUS 1 EACH TAB.CHEW GT SCH ×3 (09:28→17:09)
[2018-03-15] MEDS: GABAPENTIN 300 MG CAPSULE GT SCH ×3 (09:29→17:09)
[2018-03-15] MEDS: METHADONE HCL 10 MG TABLET GT SCH (09:29)
[2018-03-15] MEDS: CALCIUM CARBONATE 500 MG TAB.CHEW GT SCH ×3 (09:30→17:09)
[2018-03-15] MEDS: FAMOTIDINE (20 MG) 20 MG TABLET GT SCH ×2 (09:30→20:03)
[2018-03-15] MEDS: HYDROCODONE/APAP 5/325MG 1 EACH TABLET GT SCH ×2 (09:30→20:03)
[2018-03-15] MEDS: MULTIVIT W/MINERALS 1 TAB TABLET GT SCH (09:30)
[2018-03-15] MEDS: PROSTAT (PYXIS) 30 ML UDC GT SCH ×3 (09:30→17:09)
[2018-03-15] MEDS: CALCITRIOL 0.25 MCG CAPSULE PO SCH (09:30)
[2018-03-15] MEDS: ASCORBIC ACID 500 MG TABLET GT SCH ×2 (09:30→17:09)
--- NOTE | 2018-03-15 18:22 | NUR ---
Sacral, left and right buttock wounds were debrided by Dr Rafiq Diaz today. Pt tolerated procedure well. No new order.
--- NOTE | 2018-03-15 19:36 | NUR ---
PT RCVD TRACH'D ON COOL AEROSOL. PLACED BACK ON MECHANICAL VENT PER MD ORDERS WITH NOTED SETTINGS. BREATHING TX GIVEN AND NO ADVERSE REACTION NOTED. PT REFUSED TO SUCTION AT THIS TIME. PT TRACH PATENT AND SECURE. ALARMS ARE SET AND AUDIBLE. VENT PLUGGED INTO RED OUTLET. AMBU BAG AT BEDSIDE. WILL CONTINUE TO MONITOR.
[2018-03-15] MEDS: ZINC SULFATE 220 MG CAPSULE GT SCH (20:03)
[2018-03-15] MEDS: ENOXAPARIN SODIUM 40 MG/0.4 ML DISP.SYRIN SQ SCH (20:03)
[2018-03-15 20:16] VITALS: BP 121/80
[2018-03-15] MEDS: ATORVASTATIN 10 MG TABLET GT SCH (21:02)
[2018-03-15] MEDS: POLYETHYLENE GLYCOL 3350 17 GM POWD.PACK GT SCH (21:03)
[2018-03-16] MEDS: IPRATROPIUM NEB FS 0.5 MG/2.5 ML AMPUL.NEB NEB SCH ×4 (01:00→20:02)
[2018-03-16 07:51] VITALS: BP 138/82
[2018-03-16] MEDS: GENTAMICIN 0.1% CREAM 15 GM TUBE TP SCH ×2 (09:00→20:28)
[2018-03-16] MEDS: HYDROGEN PEROXIDE 480 ML BOTTLE TP SCH ×2 (09:00→20:28)
[2018-03-16] MEDS: NYSTATIN/TRIAMCIN 15 GM CREAM 15 GM TUBE TP SCH ×2 (09:00→20:28)
[2018-03-16] MEDS: Z GUARD REMEDY 2 OZ OINT TP SCH ×2 (09:00→20:28)
[2018-03-16] MEDS: HYDROGEL DRESSING 90 GM TUBE TP SCH ×4 (09:00→20:28)
[2018-03-16] MEDS: ACIDOPHILUS/BULGARICUS 1 EACH TAB.CHEW GT SCH ×3 (09:32→16:54)
[2018-03-16] MEDS: METHADONE HCL 10 MG TABLET GT SCH (09:32)
[2018-03-16] MEDS: ESCITALOPRAM OXALATE (10 MG) 10 MG TABLET GT SCH (09:32)
[2018-03-16] MEDS: BACLOFEN (10 MG) 10 MG TABLET GT SCH ×4 (09:32→20:26)
[2018-03-16] MEDS: HYDROCODONE/APAP 5/325MG 1 EACH TABLET GT SCH ×2 (09:32→20:27)
[2018-03-16] MEDS: GABAPENTIN 300 MG CAPSULE GT SCH ×3 (09:32→16:54)
[2018-03-16] MEDS: LEVOFLOXACIN (500MG) 500 MG TABLET GT SCH (09:32)
[2018-03-16] MEDS: FAMOTIDINE (20 MG) 20 MG TABLET GT SCH ×2 (09:33→20:27)
[2018-03-16] MEDS: CALCITRIOL 0.25 MCG CAPSULE PO SCH (09:33)
[2018-03-16] MEDS: ASCORBIC ACID 500 MG TABLET GT SCH ×2 (09:33→16:53)
[2018-03-16] MEDS: PROSTAT (PYXIS) 30 ML UDC GT SCH ×3 (09:33→16:54)
[2018-03-16] MEDS: CALCIUM CARBONATE 500 MG TAB.CHEW GT SCH ×3 (09:33→16:54)
[2018-03-16] MEDS: MULTIVIT W/MINERALS 1 TAB TABLET GT SCH (09:33)
--- NOTE | 2018-03-16 15:10 | NUR ---
Resident visited by his sister in law, patient in a good mood and conversing with his sister very well using PMV, well tolerated. Resident seen and examined by Dr. Walker, KEYANAO given at this time.
[2018-03-16 20:12] VITALS: BP 116/71
[2018-03-16] MEDS: ZINC SULFATE 220 MG CAPSULE GT SCH (20:27)
[2018-03-16] MEDS: ENOXAPARIN SODIUM 40 MG/0.4 ML DISP.SYRIN SQ SCH (20:28)
[2018-03-16] MEDS: POLYETHYLENE GLYCOL 3350 17 GM POWD.PACK GT SCH (21:13)
[2018-03-16] MEDS: ATORVASTATIN 10 MG TABLET GT SCH (21:13)
[2018-03-17] MEDS: IPRATROPIUM NEB FS 0.5 MG/2.5 ML AMPUL.NEB NEB SCH ×4 (01:36→19:56)
[2018-03-17 07:53] VITALS: BP 125/77
[2018-03-17] MEDS: GENTAMICIN 0.1% CREAM 15 GM TUBE TP SCH ×2 (09:00→20:34)
[2018-03-17] MEDS: NYSTATIN/TRIAMCIN 15 GM CREAM 15 GM TUBE TP SCH ×2 (09:00→20:34)
[2018-03-17] MEDS: HYDROCODONE/APAP 5/325MG 1 EACH TABLET GT SCH ×2 (09:00→20:34)
[2018-03-17] MEDS: Z GUARD REMEDY 2 OZ OINT TP SCH ×2 (09:00→20:34)
[2018-03-17] MEDS: HYDROGEN PEROXIDE 480 ML BOTTLE TP SCH ×2 (09:00→20:34)
[2018-03-17] MEDS: HYDROGEL DRESSING 90 GM TUBE TP SCH ×4 (09:00→20:34)
--- NOTE | 2018-03-17 09:23 | NUR ---
PT REC'D ON MECH VENT ON AC MODE. PT PLACED ON COOL AEROSOL PER MD ORDERS. NO RESP DISTRESS OR SOB NOTED. PT ALERT AND ORIENTED. SX'D FOR THICK MOD AMT OF PALE YELLOW SECRETIONS. TRACH PATENT AND SECURED. AMBU BAG BEDSIDE. WILL CONTINUE TO MONITOR. Addendum: 03/17/18 at 1101 by CAITLIN SOTO RT Amended: Links added.
[2018-03-17] MEDS: ACIDOPHILUS/BULGARICUS 1 EACH TAB.CHEW GT SCH ×3 (09:48→17:39)
[2018-03-17] MEDS: LEVOFLOXACIN (500MG) 500 MG TABLET GT SCH (09:49)
[2018-03-17] MEDS: ESCITALOPRAM OXALATE (10 MG) 10 MG TABLET GT SCH (09:49)
[2018-03-17] MEDS: BACLOFEN (10 MG) 10 MG TABLET GT SCH ×4 (09:49→20:33)
[2018-03-17] MEDS: ASCORBIC ACID 500 MG TABLET GT SCH ×2 (09:51→17:40)
[2018-03-17] MEDS: MULTIVIT W/MINERALS 1 TAB TABLET GT SCH (09:51)
[2018-03-17] MEDS: CALCIUM CARBONATE 500 MG TAB.CHEW GT SCH ×3 (09:51→17:40)
[2018-03-17] MEDS: PROSTAT (PYXIS) 30 ML UDC GT SCH ×3 (09:51→17:40)
[2018-03-17] MEDS: CALCITRIOL 0.25 MCG CAPSULE PO SCH (09:51)
[2018-03-17] MEDS: FAMOTIDINE (20 MG) 20 MG TABLET GT SCH ×2 (09:51→20:34)
[2018-03-17] MEDS: GABAPENTIN 300 MG CAPSULE GT SCH ×3 (09:52→17:40)
[2018-03-17] MEDS: METHADONE HCL 10 MG TABLET GT SCH (09:53)
[2018-03-17 20:11] VITALS: BP 117/67
[2018-03-17] MEDS: ENOXAPARIN SODIUM 40 MG/0.4 ML DISP.SYRIN SQ SCH (20:34)
[2018-03-17] MEDS: ZINC SULFATE 220 MG CAPSULE GT SCH (20:34)
[2018-03-17] MEDS: ATORVASTATIN 10 MG TABLET GT SCH (21:18)
[2018-03-17] MEDS: POLYETHYLENE GLYCOL 3350 17 GM POWD.PACK GT SCH (21:18)
[2018-03-18] MEDS: IPRATROPIUM NEB FS 0.5 MG/2.5 ML AMPUL.NEB NEB SCH ×4 (01:50→19:29)
[2018-03-18 07:33] VITALS: BP 145/87
--- NOTE | 2018-03-18 08:20 | NUR ---
PLACED PT ON COOL AEROSOL TERRANCE WELL NO RESP DISTRESS THROUGHOUT SHIFT
[2018-03-18] MEDS: GABAPENTIN 300 MG CAPSULE GT SCH ×3 (09:00→16:58)
[2018-03-18] MEDS: HYDROCODONE/APAP 5/325MG 1 EACH TABLET GT SCH ×2 (09:00→21:14)
[2018-03-18] MEDS: MULTIVIT W/MINERALS 1 TAB TABLET GT SCH (09:00)
[2018-03-18] MEDS: BACLOFEN (10 MG) 10 MG TABLET GT SCH ×4 (09:00→21:14)
[2018-03-18] MEDS: HYDROGEL DRESSING 90 GM TUBE TP SCH ×4 (09:00→21:14)
[2018-03-18] MEDS: ACIDOPHILUS/BULGARICUS 1 EACH TAB.CHEW GT SCH ×3 (09:00→16:58)
[2018-03-18] MEDS: ESCITALOPRAM OXALATE (10 MG) 10 MG TABLET GT SCH (09:00)
[2018-03-18] MEDS: NYSTATIN/TRIAMCIN 15 GM CREAM 15 GM TUBE TP SCH ×2 (09:00→21:15)
[2018-03-18] MEDS: HYDROGEN PEROXIDE 480 ML BOTTLE TP SCH ×2 (09:00→21:15)
[2018-03-18] MEDS: CALCITRIOL 0.25 MCG CAPSULE PO SCH (09:00)
[2018-03-18] MEDS: Z GUARD REMEDY 2 OZ OINT TP SCH ×2 (09:00→21:15)
[2018-03-18] MEDS: ASCORBIC ACID 500 MG TABLET GT SCH ×2 (09:00→16:58)
[2018-03-18] MEDS: FAMOTIDINE (20 MG) 20 MG TABLET GT SCH ×2 (09:00→21:14)
[2018-03-18] MEDS: CALCIUM CARBONATE 500 MG TAB.CHEW GT SCH ×3 (09:00→16:58)
[2018-03-18] MEDS: PROSTAT (PYXIS) 30 ML UDC GT SCH ×3 (09:00→16:58)
[2018-03-18] MEDS: METHADONE HCL 10 MG TABLET GT SCH (09:00)
[2018-03-18] MEDS: GENTAMICIN 0.1% CREAM 15 GM TUBE TP SCH ×2 (09:00→21:14)
[2018-03-18 19:47] VITALS: BP 123/75
[2018-03-18] MEDS: ENOXAPARIN SODIUM 40 MG/0.4 ML DISP.SYRIN SQ SCH (21:14)
[2018-03-18] MEDS: ZINC SULFATE 220 MG CAPSULE GT SCH (21:14)
[2018-03-18] MEDS: ATORVASTATIN 10 MG TABLET GT SCH (21:15)
[2018-03-18] MEDS: POLYETHYLENE GLYCOL 3350 17 GM POWD.PACK GT SCH (21:15)
--- NOTE | 2018-03-18 22:16 | NUR ---
RT PT REC'D ON COOL AEROSOL. PT PLACED ON VENT PER MD ORDERS. NO RESPIRATORY DISTRESS OR SOB NOTED. PT ALERT AND ORIENTED. SX'D FOR THICK SMALL AMOUNT OF PALE YELLOW SECRETIONS. TRACH PATENT AND SECURED. AMBU BAG BEDSIDE. VENT ALARMS ON AND AUDIBLE. VENT PLUGGED IN RED OUTLET. WILL CONTINUE TO MONITOR. Addendum: 03/18/18 at 2219 by BUFFY SHERWOOD RT Amended: Links added.
[2018-03-19] MEDS: IPRATROPIUM NEB FS 0.5 MG/2.5 ML AMPUL.NEB NEB SCH ×4 (01:05→19:43)
--- NOTE | 2018-03-19 02:15 | NUR ---
PT RCVD NENA'D ON MECHANICAL VENT WITH CHARTED SETTINGS. SX DONE. PT TRACH PATENT AND SECURE. ALARMS ARE ON AND AUDIBLE. VENT PLUGGED INTO RED OUTLET. AMBU BAG AT BEDSIDE. WILL CONTINUE TO MONITOR. Addendum: 03/19/18 at 0216 by LUCIANA TRIMBLE RT Amended: Links added.
[2018-03-19 07:43] VITALS: BP 137/81
[2018-03-19] MEDS: ACIDOPHILUS/BULGARICUS 1 EACH TAB.CHEW GT SCH ×3 (09:04→16:55)
[2018-03-19] MEDS: ESCITALOPRAM OXALATE (10 MG) 10 MG TABLET GT SCH (09:04)
[2018-03-19] MEDS: BACLOFEN (10 MG) 10 MG TABLET GT SCH ×4 (09:04→20:49)
[2018-03-19] MEDS: CALCIUM CARBONATE 500 MG TAB.CHEW GT SCH ×3 (09:05→16:55)
[2018-03-19] MEDS: GABAPENTIN 300 MG CAPSULE GT SCH ×3 (09:05→16:55)
[2018-03-19] MEDS: ASCORBIC ACID 500 MG TABLET GT SCH ×2 (09:05→16:55)
[2018-03-19] MEDS: MULTIVIT W/MINERALS 1 TAB TABLET GT SCH (09:05)
[2018-03-19] MEDS: FAMOTIDINE (20 MG) 20 MG TABLET GT SCH ×2 (09:05→20:49)
[2018-03-19] MEDS: PROSTAT (PYXIS) 30 ML UDC GT SCH ×3 (09:05→16:55)
[2018-03-19] MEDS: CALCITRIOL 0.25 MCG CAPSULE PO SCH (09:05)
[2018-03-19] MEDS: METHADONE HCL 10 MG TABLET GT SCH (09:05)
[2018-03-19] MEDS: HYDROCODONE/APAP 5/325MG 1 EACH TABLET GT SCH ×2 (11:27→20:49)
[2018-03-19] MEDS: HYDROGEL DRESSING 90 GM TUBE TP SCH ×4 (12:27→21:32)
[2018-03-19] MEDS: Z GUARD REMEDY 2 OZ OINT TP SCH ×2 (12:27→21:32)
[2018-03-19] MEDS: HYDROGEN PEROXIDE 480 ML BOTTLE TP SCH ×2 (12:27→21:32)
[2018-03-19] MEDS: NYSTATIN/TRIAMCIN 15 GM CREAM 15 GM TUBE TP SCH ×2 (12:27→21:32)
[2018-03-19] MEDS: GENTAMICIN 0.1% CREAM 15 GM TUBE TP SCH ×2 (12:27→21:32)
--- NOTE | 2018-03-19 16:22 | NUR ---
SW spoke to resident's sister in law in person communicating IDT mtg on Apr 13 at 12:30. sister in law will not be able to attend it
[2018-03-19 19:46] VITALS: BP 116/75
[2018-03-19] MEDS: ZINC SULFATE 220 MG CAPSULE GT SCH (20:49)
[2018-03-19] MEDS: ENOXAPARIN SODIUM 40 MG/0.4 ML DISP.SYRIN SQ SCH (20:50)
--- NOTE | 2018-03-19 21:07 | NUR ---
PT RCVD NENA'D ON MECHANICAL VENT WITH CHARTED SETTINGS. HHN TX GIVEN WITH NO ADVERSE REACTION NOTED. SX DONE. PT TRACH PATENT AND SECURE. ALARMS ARE ON AND AUDIBLE. VENT PLUGGED INTO RED OUTLET. AMBU BAG AT BEDSIDE. WILL CONTINUE TO MONITOR. Addendum: 03/19/18 at 2108 by JOSÉ LUIS HARMAN RT Amended: Links added.
[2018-03-19] MEDS: ATORVASTATIN 10 MG TABLET GT SCH (21:32)
[2018-03-19] MEDS: POLYETHYLENE GLYCOL 3350 17 GM POWD.PACK GT SCH (21:32)
[2018-03-20] MEDS: IPRATROPIUM NEB FS 0.5 MG/2.5 ML AMPUL.NEB NEB SCH ×4 (00:45→19:31)
[2018-03-20 07:49] VITALS: BP 118/62
[2018-03-20] MEDS: BACLOFEN (10 MG) 10 MG TABLET GT SCH ×4 (08:41→21:06)
[2018-03-20] MEDS: GABAPENTIN 300 MG CAPSULE GT SCH ×3 (08:41→17:15)
[2018-03-20] MEDS: METHADONE HCL 10 MG TABLET GT SCH (08:41)
[2018-03-20] MEDS: ESCITALOPRAM OXALATE (10 MG) 10 MG TABLET GT SCH (08:41)
[2018-03-20] MEDS: ACIDOPHILUS/BULGARICUS 1 EACH TAB.CHEW GT SCH ×3 (08:41→17:15)
[2018-03-20] MEDS: MULTIVIT W/MINERALS 1 TAB TABLET GT SCH (08:42)
[2018-03-20] MEDS: ASCORBIC ACID 500 MG TABLET GT SCH ×2 (08:42→17:15)
[2018-03-20] MEDS: PROSTAT (PYXIS) 30 ML UDC GT SCH ×3 (08:42→17:15)
[2018-03-20] MEDS: HYDROCODONE/APAP 5/325MG 1 EACH TABLET GT SCH ×2 (08:42→21:07)
[2018-03-20] MEDS: CALCITRIOL 0.25 MCG CAPSULE PO SCH (08:42)
[2018-03-20] MEDS: FAMOTIDINE (20 MG) 20 MG TABLET GT SCH ×2 (08:42→21:07)
[2018-03-20] MEDS: CALCIUM CARBONATE 500 MG TAB.CHEW GT SCH ×3 (08:42→17:15)
--- NOTE | 2018-03-20 08:50 | NUR ---
RT PLACED PT ON COOL AEROSOL TERRANCE WELL NO RESP DISTRESS ATT WILL CONT TO MONITOR
[2018-03-20] MEDS: HYDROGEL DRESSING 90 GM TUBE TP SCH ×4 (09:41→21:47)
[2018-03-20] MEDS: Z GUARD REMEDY 2 OZ OINT TP SCH ×2 (09:42→21:48)
[2018-03-20] MEDS: HYDROGEN PEROXIDE 480 ML BOTTLE TP SCH ×2 (09:42→21:48)
[2018-03-20] MEDS: NYSTATIN/TRIAMCIN 15 GM CREAM 15 GM TUBE TP SCH ×2 (09:42→21:48)
[2018-03-20] MEDS: GENTAMICIN 0.1% CREAM 15 GM TUBE TP SCH ×2 (09:42→21:48)
[2018-03-20 19:56] VITALS: BP 119/76
[2018-03-20] MEDS: ZINC SULFATE 220 MG CAPSULE GT SCH (21:07)
[2018-03-20] MEDS: POLYETHYLENE GLYCOL 3350 17 GM POWD.PACK GT SCH (21:08)
[2018-03-20] MEDS: ATORVASTATIN 10 MG TABLET GT SCH (21:08)
[2018-03-20] MEDS: ENOXAPARIN SODIUM 40 MG/0.4 ML DISP.SYRIN SQ SCH (21:08)
[2018-03-21] MEDS: IPRATROPIUM NEB FS 0.5 MG/2.5 ML AMPUL.NEB NEB SCH ×4 (01:09→20:08)
[2018-03-21] MEDS: GENTAMICIN 0.1% CREAM 15 GM TUBE TP SCH ×2 (09:00→21:41)
[2018-03-21] MEDS: HYDROGEN PEROXIDE 480 ML BOTTLE TP SCH ×2 (09:00→21:41)
[2018-03-21] MEDS: Z GUARD REMEDY 2 OZ OINT TP SCH ×2 (09:00→21:41)
[2018-03-21] MEDS: HYDROGEL DRESSING 90 GM TUBE TP SCH ×4 (09:00→21:40)
[2018-03-21] MEDS: NYSTATIN/TRIAMCIN 15 GM CREAM 15 GM TUBE TP SCH ×2 (09:00→21:41)
[2018-03-21] MEDS: BACLOFEN (10 MG) 10 MG TABLET GT SCH ×4 (09:24→21:02)
[2018-03-21] MEDS: FAMOTIDINE (20 MG) 20 MG TABLET GT SCH ×2 (09:24→21:02)
[2018-03-21] MEDS: ESCITALOPRAM OXALATE (10 MG) 10 MG TABLET GT SCH (09:24)
[2018-03-21] MEDS: GABAPENTIN 300 MG CAPSULE GT SCH ×3 (09:24→17:20)
[2018-03-21] MEDS: HYDROCODONE/APAP 5/325MG 1 EACH TABLET GT SCH ×2 (09:24→21:02)
[2018-03-21] MEDS: METHADONE HCL 10 MG TABLET GT SCH (09:24)
[2018-03-21] MEDS: ACIDOPHILUS/BULGARICUS 1 EACH TAB.CHEW GT SCH ×3 (09:24→17:19)
[2018-03-21] MEDS: MULTIVIT W/MINERALS 1 TAB TABLET GT SCH (09:25)
[2018-03-21] MEDS: PROSTAT (PYXIS) 30 ML UDC GT SCH ×3 (09:25→17:20)
[2018-03-21] MEDS: ASCORBIC ACID 500 MG TABLET GT SCH ×2 (09:25→17:20)
[2018-03-21] MEDS: CALCITRIOL 0.25 MCG CAPSULE PO SCH (09:25)
[2018-03-21] MEDS: CALCIUM CARBONATE 500 MG TAB.CHEW GT SCH ×3 (09:25→17:20)
[2018-03-21 12:08] VITALS: BP 125/76
--- NOTE | 2018-03-21 18:34 | NUR ---
Notified Dr. Walker that patient's urine in the nephrostomy bag with slight hematuria. New order given to send urine for UA and C/S. Notified resident's sister in law, Vilma of the new order. Appreciated the call.
[2018-03-21 20:20] VITALS: BP 144/94
[2018-03-21] MEDS: ZINC SULFATE 220 MG CAPSULE GT SCH (21:02)
[2018-03-21] MEDS: ENOXAPARIN SODIUM 40 MG/0.4 ML DISP.SYRIN SQ SCH (21:03)
[2018-03-21] MEDS: ATORVASTATIN 10 MG TABLET GT SCH (21:03)
[2018-03-21] MEDS: POLYETHYLENE GLYCOL 3350 17 GM POWD.PACK GT SCH (21:03)
[2018-03-22] MEDS: IPRATROPIUM NEB FS 0.5 MG/2.5 ML AMPUL.NEB NEB SCH ×4 (01:56→19:38)
--- NOTE | 2018-03-22 06:08 | NUR ---
Pt nephrostomy output still bloody.No complained of pain.Afebrile.Will continue to monitor.
[2018-03-22 07:38] VITALS: BP 122/80
[2018-03-22] MEDS: FAMOTIDINE (20 MG) 20 MG TABLET GT SCH ×2 (09:00→21:01)
[2018-03-22] MEDS: METHADONE HCL 10 MG TABLET GT SCH (09:00)
[2018-03-22] MEDS: ESCITALOPRAM OXALATE (10 MG) 10 MG TABLET GT SCH (09:00)
[2018-03-22] MEDS: BACLOFEN (10 MG) 10 MG TABLET GT SCH ×4 (09:00→21:01)
[2018-03-22] MEDS: HYDROGEN PEROXIDE 480 ML BOTTLE TP SCH ×2 (09:00→21:01)
[2018-03-22] MEDS: ASCORBIC ACID 500 MG TABLET GT SCH ×2 (09:00→17:12)
[2018-03-22] MEDS: Z GUARD REMEDY 2 OZ OINT TP SCH ×2 (09:00→21:01)
[2018-03-22] MEDS: CALCIUM CARBONATE 500 MG TAB.CHEW GT SCH ×3 (09:00→17:12)
[2018-03-22] MEDS: ACIDOPHILUS/BULGARICUS 1 EACH TAB.CHEW GT SCH ×3 (09:00→17:12)
[2018-03-22] MEDS: GENTAMICIN 0.1% CREAM 15 GM TUBE TP SCH ×2 (09:00→21:01)
[2018-03-22] MEDS: MULTIVIT W/MINERALS 1 TAB TABLET GT SCH (09:00)
[2018-03-22] MEDS: HYDROGEL DRESSING 90 GM TUBE TP SCH ×4 (09:00→21:01)
[2018-03-22] MEDS: PROSTAT (PYXIS) 30 ML UDC GT SCH ×3 (09:00→17:12)
[2018-03-22] MEDS: GABAPENTIN 300 MG CAPSULE GT SCH ×3 (09:00→17:12)
[2018-03-22] MEDS: CALCITRIOL 0.25 MCG CAPSULE PO SCH (09:00)
[2018-03-22] MEDS: HYDROCODONE/APAP 5/325MG 1 EACH TABLET GT SCH ×2 (09:00→21:01)
[2018-03-22] MEDS: NYSTATIN/TRIAMCIN 15 GM CREAM 15 GM TUBE TP SCH ×2 (09:00→21:01)
--- NOTE | 2018-03-22 12:38 | NUR ---
Seen by Dr Walker. Informed him that pt still has hematuria from the nephrostomy. Urine from Jackman catheter is clear yellowish. Dr Walker ordered to have the nephrostomy tube replaced. He said he will speak with Dr Kate about it.
[2018-03-22 12:54] LABS: APPEARANCE,URINE CLOUDY (CLEAR); BILIRUBIN,URINE 1+ (NEGATIVE); BLOOD, URINE 3+ Ery/uL (NEGATIVE); COLOR,URINE RED (YELLOW); KETONES,URINE NEGATIVE (NEGATIVE); LEUKOCYTE ESTERASE ,URINE 3+ (NEGATIVE); NITRITE, URINE POSITIVE (NEGATIVE); PROTEIN,URINE 2+ mg/dl (NEGATIVE); UGLUCOSE NEGATIVE (NEGATIVE); UROBILINOGEN,URINE 0.2 EU/dL (0.2)
[2018-03-22 13:10] LABS: BACTERIA,URINE Few /HPF (None Seen); RBC,URINE TOO NUMEROUS TO COUN /HPF (0-2); SQUAMOUS EPITHELIAL CELL,UR Few /HPF (None Seen); WBC,URINE 51-80 /HPF (0-3)
--- NOTE | 2018-03-22 13:30 | NUR ---
Nerissa from radiology called and said Dr Kate will do the nephrostomy tube exchange tomorrow. Pt needs to be NPO 6-8 hours prior to the procedure. Notified Dr Walker. Received order to be placed on NPO and to hold Lovenox dose tonight.
[2018-03-22] MEDS: METHOCARBAMOL (750MG) 750 MG TABLET GT PRN (17:17)
[2018-03-22] MEDS: MAGNESIUM HYDROXIDE 30 ML UDC GT PRN (17:17)
[2018-03-22] MEDS ORDERED: ACETYLCYSTEINE 10% SOLN 400 MG/4 ML VIAL NEB SCH (19:30)
[2018-03-22 19:33] VITALS: BP 112/69
[2018-03-22] MEDS: POLYETHYLENE GLYCOL 3350 17 GM POWD.PACK GT SCH (21:01)
[2018-03-22] MEDS: ZINC SULFATE 220 MG CAPSULE GT SCH (21:01)
[2018-03-22] MEDS: ATORVASTATIN 10 MG TABLET GT SCH (21:01)
[2018-03-23] MEDS: IPRATROPIUM NEB FS 0.5 MG/2.5 ML AMPUL.NEB NEB SCH ×4 (01:53→19:25)
--- NOTE | 2018-03-23 07:31 | NUR ---
RT Pt rec'd trach'd and on [facility] vent w charted settings. Placed pt back on CA on charted settings. Pt trach is secure and patent. Pt sx'd and hhn tx given w no adverse reactions. No sob or respiratory distress noted @ this time. Will continue to monitor. Addendum: 03/23/18 at 1232 by SUNG KERN RT Amended: Links added.
[2018-03-23 07:41] VITALS: BP 139/73
--- NOTE | 2018-03-23 08:15 | NUR ---
RT PLACED PT ON COOL AEROSOL TERRANCE WELL NO RESP DISTRESS NOTED @ THIS TIME.
[2018-03-23] MEDS: MULTIVIT W/MINERALS 1 TAB TABLET GT SCH (09:00)
[2018-03-23] MEDS: NYSTATIN/TRIAMCIN 15 GM CREAM 15 GM TUBE TP SCH ×2 (09:00→21:05)
[2018-03-23] MEDS: BACLOFEN (10 MG) 10 MG TABLET GT SCH ×4 (09:00→21:04)
[2018-03-23] MEDS: ACIDOPHILUS/BULGARICUS 1 EACH TAB.CHEW GT SCH ×3 (09:00→16:50)
[2018-03-23] MEDS: HYDROCODONE/APAP 5/325MG 1 EACH TABLET GT SCH ×2 (09:00→21:04)
[2018-03-23] MEDS: ESCITALOPRAM OXALATE (10 MG) 10 MG TABLET GT SCH (09:00)
[2018-03-23] MEDS: CALCITRIOL 0.25 MCG CAPSULE PO SCH (09:00)
[2018-03-23] MEDS: GABAPENTIN 300 MG CAPSULE GT SCH ×3 (09:00→16:50)
[2018-03-23] MEDS: CALCIUM CARBONATE 500 MG TAB.CHEW GT SCH ×3 (09:00→16:50)
[2018-03-23] MEDS: HYDROGEN PEROXIDE 480 ML BOTTLE TP SCH ×2 (09:00→21:05)
[2018-03-23] MEDS: HYDROGEL DRESSING 90 GM TUBE TP SCH ×4 (09:00→21:05)
[2018-03-23] MEDS: Z GUARD REMEDY 2 OZ OINT TP SCH ×2 (09:00→21:06)
[2018-03-23] MEDS: GENTAMICIN 0.1% CREAM 15 GM TUBE TP SCH ×2 (09:00→21:05)
[2018-03-23] MEDS: METHADONE HCL 10 MG TABLET GT SCH (09:00)
[2018-03-23] MEDS: PROSTAT (PYXIS) 30 ML UDC GT SCH ×3 (09:00→16:50)
[2018-03-23] MEDS: ASCORBIC ACID 500 MG TABLET GT SCH ×2 (09:00→16:40)
[2018-03-23] MEDS: FAMOTIDINE (20 MG) 20 MG TABLET GT SCH ×2 (09:00→21:04)
--- NOTE | 2018-03-23 11:24 | NUR ---
Resident schedule for nephrostomy tube exchange at 11 AM but Marietta from radiology said that they will pick the patient around 1230, informed Jeanette, patient is ready and RT is standing by to accompany patient for the procedure.
[2018-03-23] MEDS ORDERED: FENTANYL PF 250MCG/5ML AMPUL IV ONE (12:00)
[2018-03-23] MEDS ORDERED: MIDAZOLAM HCL 5MG/ML VIAL 25 MG/5 ML VIAL IV ONE (12:00)
[2018-03-23] MEDS ORDERED: NALOXONE PREFILLED SYRINGE 2 MG/2 ML SYRINGE IV ONE (12:00)
--- NOTE | 2018-03-23 15:23 | NUR ---
RT Pt transported to CT for procedure and transported back to room. [facility] vent is on charted settings per md order. Vent is plugged into red outlet w amb[facility]ag at [facility]. Pt trach is secure and patent. Alarms are on and audible. Pt sx'd w no adverse reactions. No respiratory distress noted t/o shift. Will continue to monitor.
--- NOTE | 2018-03-23 15:26 | NUR ---
Resident returned back from radiology, s/p nephrostomy tube exchange accompanied by RT. Per report from post-op nurse patient was given Versed. Patient alert, responsive and communicating with staff at this time. Nephrostomy bag draining well with slight hematuria. Stable, not in acute distress/discomfort. All orders resumed.
[2018-03-23 19:25] VITALS: BP 105/61
[2018-03-23 20:00] VITALS: BP_SYST 105; BP_SYST 106; BP_DIAS 54; BP_DIAS 61
[2018-03-23] MEDS ORDERED: ENOXAPARIN SODIUM 40 MG/0.4 ML DISP.SYRIN SQ SCH (21:00)
[2018-03-23] MEDS: ZINC SULFATE 220 MG CAPSULE GT SCH (21:04)
[2018-03-23] MEDS: POLYETHYLENE GLYCOL 3350 17 GM POWD.PACK GT SCH (21:06)
[2018-03-23] MEDS: ATORVASTATIN 10 MG TABLET GT SCH (21:06)
--- NOTE | 2018-03-23 21:07 | NUR ---
RN NOTES: LOVENOX NOT GIVEN, RN(CN)NOTIFIED, NOTED PINKISH/REDDISH DRAINAGE ON THE NEPHROSTOMY TUBE(CHANGE THIS MORNING), WILL CONTINUE TO MONITOR FOR SIGN OF BLEEDING.
--- NOTE | 2018-03-23 21:59 | NUR ---
RT NOTE PATIENT RECEIVED TRACHED ON MECHANICAL VENTILATION. PATIENT AWAKE/ALERT. VENT PLUGGED INTO RED OUTLET. ALARMS ON AND AUDIBLE. CUFF CHECKED VIA TELEVISION CAMERA OPERATOR. TX GIVEN, NO ADVERSE REACTIONS NOTED. SX DONE, MODERATE THICK YELLOW SECRETIONS NOTED. PATIENT STABLE. Addendum: 03/23/18 at 2159 by VERNELL CHRISTINE RT Amended: Links added.
[2018-03-24] MEDS: IPRATROPIUM NEB FS 0.5 MG/2.5 ML AMPUL.NEB NEB SCH ×4 (01:16→20:04)
--- NOTE | 2018-03-24 06:49 | NUR ---
RN NOTES: NEPHROSTOMY TUBE DRAINAGE-200 ML, REDDISH/PINKISH IN COLOR.
[2018-03-24 08:00] VITALS: BP 121/68
[2018-03-24 08:11] VITALS: BP 121/68
[2018-03-24] MEDS: ACIDOPHILUS/BULGARICUS 1 EACH TAB.CHEW GT SCH ×3 (09:14→16:37)
[2018-03-24] MEDS: ESCITALOPRAM OXALATE (10 MG) 10 MG TABLET GT SCH (09:15)
[2018-03-24] MEDS: BACLOFEN (10 MG) 10 MG TABLET GT SCH ×4 (09:16→20:37)
[2018-03-24] MEDS: METHADONE HCL 10 MG TABLET GT SCH (09:20)
[2018-03-24] MEDS: HYDROCODONE/APAP 5/325MG 1 EACH TABLET GT SCH ×2 (09:20→20:38)
[2018-03-24] MEDS: GABAPENTIN 300 MG CAPSULE GT SCH ×3 (09:20→16:37)
[2018-03-24] MEDS: FAMOTIDINE (20 MG) 20 MG TABLET GT SCH ×2 (09:21→20:38)
[2018-03-24] MEDS: PROSTAT (PYXIS) 30 ML UDC GT SCH ×3 (09:21→16:37)
[2018-03-24] MEDS: CALCITRIOL 0.25 MCG CAPSULE PO SCH (09:22)
[2018-03-24] MEDS: HYDROGEL DRESSING 90 GM TUBE TP SCH ×4 (09:22→20:38)
[2018-03-24] MEDS: HYDROGEN PEROXIDE 480 ML BOTTLE TP SCH ×2 (09:23→20:39)
[2018-03-24] MEDS: GENTAMICIN 0.1% CREAM 15 GM TUBE TP SCH ×2 (09:23→20:38)
[2018-03-24] MEDS: NYSTATIN/TRIAMCIN 15 GM CREAM 15 GM TUBE TP SCH ×2 (09:23→20:39)
[2018-03-24] MEDS: Z GUARD REMEDY 2 OZ OINT TP SCH ×2 (09:24→20:39)
[2018-03-24] MEDS: MULTIVIT W/MINERALS 1 TAB TABLET GT SCH (09:27)
[2018-03-24] MEDS: ASCORBIC ACID 500 MG TABLET GT SCH ×2 (09:27→16:38)
[2018-03-24] MEDS: CALCIUM CARBONATE 500 MG TAB.CHEW GT SCH ×3 (09:28→16:38)
--- NOTE | 2018-03-24 10:40 | NUR ---
Notified Dr. Walker that newly inserted nephrostomy tube is draining blood tinged urine. Urine culture collected in the previous nephrostomy tube shows gram negative rods, sensitivities not available at this time. New order to hold Lovenox for now. Resident informed.
--- NOTE | 2018-03-24 12:00 | NUR ---
PATIENT OBSERVED TO HAVE PINKISH DRAINAGE IN THE NEPHROSTOMY TUBE. WILL CONTINUE TO MONITOR.
--- NOTE | 2018-03-24 12:34 | NUR ---
Notified Dr. Walker of final urine culture result showing Pseudomonas Aureginosa, with new order to start Zosyn per pharmacy to dose. Left a message to family (Vilma), regarding urine culture result and IV ATB order. Order fax[facility] to [facility].
[2018-03-24] MEDS: HYDROCODONE/APAP 5/325MG 1 EACH TABLET GT PRN ×2 (14:05→18:39)
--- NOTE | 2018-03-24 14:30 | NUR ---
Notified by pharmacist that Zosyn cannot be given due to allergy from penicillin. CARLI Ortiz notified. New order given to start Fortaz and if allergic reaction develops to change ATB to Tobramycin. Endorsed.
[2018-03-24] MEDS: CEFTAZIDIME 1 G in IV NS 0.9% 50 ML IV SCH (18:38)
--- NOTE | 2018-03-24 19:30 | NUR ---
Resident ATB Fortaz given, no adverse reaction noted. No redness or rashes observed.
--- NOTE | 2018-03-24 20:14 | NUR ---
RT NOTE PATIENT RECEIVED ON COOL AEROSOL .PLACED PATIENT ON VENT WITH NOTED VENT SETTING PER NOC ORDER. HHN TREATMENT WAS GIVEN , TOLERATED WELL. T
[2018-03-24 20:38] VITALS: BP 110/68
[2018-03-24] MEDS: ZINC SULFATE 220 MG CAPSULE GT SCH (20:38)
[2018-03-24] MEDS ORDERED: CEFTAZIDIME 1 G in IV NS 0.9% 50 ML IV SCH (21:00)
[2018-03-24] MEDS: ATORVASTATIN 10 MG TABLET GT SCH (22:26)
[2018-03-24] MEDS: POLYETHYLENE GLYCOL 3350 17 GM POWD.PACK GT SCH (22:26)
[2018-03-25] MEDS: ALBUTEROL HALF STRENGTH 1.25 MG/3 ML VIAL.NEB IH PRN (01:56)
[2018-03-25] MEDS: IPRATROPIUM NEB FS 0.5 MG/2.5 ML AMPUL.NEB NEB SCH ×4 (02:00→19:58)
[2018-03-25] MEDS: CEFTAZIDIME 1 G in IV NS 0.9% 50 ML IV SCH ×3 (02:00→17:49)
[2018-03-25] MEDS: HYDROCODONE/APAP 5/325MG 1 EACH TABLET GT PRN (05:34)
--- NOTE | 2018-03-25 07:09 | NUR ---
PER PRIMARY NURSE NO MORE HEMATURIA.
[2018-03-25] MEDS: BACLOFEN (10 MG) 10 MG TABLET GT SCH ×4 (08:48→20:56)
[2018-03-25] MEDS: ACIDOPHILUS/BULGARICUS 1 EACH TAB.CHEW GT SCH ×3 (08:48→17:26)
[2018-03-25] MEDS: ESCITALOPRAM OXALATE (10 MG) 10 MG TABLET GT SCH (08:48)
[2018-03-25] MEDS: CALCIUM CARBONATE 500 MG TAB.CHEW GT SCH ×3 (08:49→17:26)
[2018-03-25] MEDS: METHADONE HCL 10 MG TABLET GT SCH (08:49)
[2018-03-25] MEDS: CALCITRIOL 0.25 MCG CAPSULE PO SCH (08:49)
[2018-03-25] MEDS: ASCORBIC ACID 500 MG TABLET GT SCH ×2 (08:49→17:26)
[2018-03-25] MEDS: MULTIVIT W/MINERALS 1 TAB TABLET GT SCH (08:49)
[2018-03-25] MEDS: FAMOTIDINE (20 MG) 20 MG TABLET GT SCH ×2 (08:49→20:56)
[2018-03-25] MEDS: PROSTAT (PYXIS) 30 ML UDC GT SCH ×3 (08:49→17:26)
[2018-03-25] MEDS: GABAPENTIN 300 MG CAPSULE GT SCH ×3 (08:49→17:26)
[2018-03-25] MEDS: HYDROCODONE/APAP 5/325MG 1 EACH TABLET GT SCH ×2 (08:49→20:56)
[2018-03-25] MEDS: Z GUARD REMEDY 2 OZ OINT TP SCH (09:00)
[2018-03-25] MEDS: HYDROGEL DRESSING 90 GM TUBE TP SCH ×4 (09:00→20:57)
[2018-03-25] MEDS: NYSTATIN/TRIAMCIN 15 GM CREAM 15 GM TUBE TP SCH ×2 (09:00→20:57)
[2018-03-25] MEDS: HYDROGEN PEROXIDE 480 ML BOTTLE TP SCH ×2 (09:00→20:57)
[2018-03-25] MEDS: GENTAMICIN 0.1% CREAM 15 GM TUBE TP SCH (09:00)
[2018-03-25 15:01] VITALS: BP 114/68
[2018-03-25 20:37] VITALS: BP 106/75
[2018-03-25] MEDS: ZINC SULFATE 220 MG CAPSULE GT SCH (20:56)
[2018-03-25] MEDS: ATORVASTATIN 10 MG TABLET GT SCH (22:09)
[2018-03-25] MEDS: POLYETHYLENE GLYCOL 3350 17 GM POWD.PACK GT SCH (22:09)
[2018-03-26] MEDS: IPRATROPIUM NEB FS 0.5 MG/2.5 ML AMPUL.NEB NEB SCH ×4 (00:48→19:41)
[2018-03-26] MEDS: CEFTAZIDIME 1 G in IV NS 0.9% 50 ML IV SCH ×3 (02:01→17:21)
--- NOTE | 2018-03-26 08:09 | NUR ---
RT NOTE PT FOUND ON [facility] VENT ON THE FOLLOWING NOTED SETTINGS. NO RESP DISTRESS OR SOB NOTED. PT IS HAVING BREAKFAST AT THE MOMENT. BREATHING TX GIVEN, NO ADVERSE REACTIONS NOTED. PT SUCTIONED LARGE THICK YELLOW SECRETIONS. VENT IS PLUGGED INTO RED OUTLET. ALARMS ARE ON AND AUDIBLE. AMBU BAG AND SPARE TRACH ARE AT BEDSIDE. PT WILL BE SWITCHED OVER TO COOL AEROSOL AFTER BREAKFAST. WILL CONT TO MONITOR. Addendum: 03/26/18 at 0811 by JC VICTORIA RT Amended: Links added.
[2018-03-26 08:19] VITALS: BP 129/61
[2018-03-26] MEDS: METHADONE HCL 10 MG TABLET GT SCH (09:00)
[2018-03-26] MEDS: HYDROCODONE/APAP 5/325MG 1 EACH TABLET GT SCH ×2 (09:00→21:33)
[2018-03-26] MEDS: NYSTATIN/TRIAMCIN 15 GM CREAM 15 GM TUBE TP SCH ×2 (09:00→21:59)
[2018-03-26] MEDS: GABAPENTIN 300 MG CAPSULE GT SCH ×3 (09:00→17:21)
[2018-03-26] MEDS: PROSTAT (PYXIS) 30 ML UDC GT SCH ×3 (09:00→17:21)
[2018-03-26] MEDS: HYDROGEN PEROXIDE 480 ML BOTTLE TP SCH ×2 (09:00→21:59)
[2018-03-26] MEDS: FAMOTIDINE (20 MG) 20 MG TABLET GT SCH ×2 (09:00→21:33)
[2018-03-26] MEDS: ESCITALOPRAM OXALATE (10 MG) 10 MG TABLET GT SCH (09:00)
[2018-03-26] MEDS: CALCIUM CARBONATE 500 MG TAB.CHEW GT SCH ×3 (09:00→17:21)
[2018-03-26] MEDS: CALCITRIOL 0.25 MCG CAPSULE PO SCH (09:00)
[2018-03-26] MEDS: ACIDOPHILUS/BULGARICUS 1 EACH TAB.CHEW GT SCH ×3 (09:00→17:21)
[2018-03-26] MEDS: BACLOFEN (10 MG) 10 MG TABLET GT SCH ×4 (09:00→21:32)
[2018-03-26] MEDS: MULTIVIT W/MINERALS 1 TAB TABLET GT SCH (09:00)
[2018-03-26] MEDS: ASCORBIC ACID 500 MG TABLET GT SCH ×2 (09:00→17:21)
[2018-03-26] MEDS: HYDROGEL DRESSING 90 GM TUBE TP SCH ×4 (09:00→21:59)
[2018-03-26 20:12] VITALS: BP 107/67
--- NOTE | 2018-03-26 20:49 | NUR ---
PT RCVD TRACH'D ON COOL AEROSOL . PT PLACED ON MECHANICAL VENT PER MD ORDERS, WITH CHARTED SETTINGS. HHN TX GIVEN AND NO ADVERSE REACTION NOTED. SX DONE. PT TRACH PATENT AND SECURE. CUFF CHECKED VIA CUSTOMER SOLUTIONS TEAMMATE. ALARMS ARE ON AND AUDIBLE. VENT PLUGGED INTO RED OUTLET. AMBU BAG AT BEDSIDE. WILL CONTINUE TO MONITOR. Addendum: 03/26/18 at 2050 by LUCIANA TRIMBLE RT Amended: Links added.
[2018-03-26] MEDS: POLYETHYLENE GLYCOL 3350 17 GM POWD.PACK GT SCH (21:33)
[2018-03-26] MEDS: ATORVASTATIN 10 MG TABLET GT SCH (21:33)
[2018-03-26] MEDS: ZINC SULFATE 220 MG CAPSULE GT SCH (21:33)
[2018-03-27] MEDS: IPRATROPIUM NEB FS 0.5 MG/2.5 ML AMPUL.NEB NEB SCH ×4 (00:43→20:00)
[2018-03-27] MEDS: METHOCARBAMOL (750MG) 750 MG TABLET GT PRN (01:12)
[2018-03-27] MEDS: CEFTAZIDIME 1 G in IV NS 0.9% 50 ML IV SCH ×3 (02:37→18:00)
[2018-03-27 08:02] VITALS: BP 129/73
[2018-03-27] MEDS: ACIDOPHILUS/BULGARICUS 1 EACH TAB.CHEW GT SCH ×3 (08:18→17:37)
[2018-03-27] MEDS: ESCITALOPRAM OXALATE (10 MG) 10 MG TABLET GT SCH (08:18)
[2018-03-27] MEDS: PROSTAT (PYXIS) 30 ML UDC GT SCH ×3 (08:18→17:37)
[2018-03-27] MEDS: FAMOTIDINE (20 MG) 20 MG TABLET GT SCH ×2 (08:18→21:35)
[2018-03-27] MEDS: CALCIUM CARBONATE 500 MG TAB.CHEW GT SCH ×3 (08:18→17:37)
[2018-03-27] MEDS: ASCORBIC ACID 500 MG TABLET GT SCH ×2 (08:18→17:37)
[2018-03-27] MEDS: CALCITRIOL 0.25 MCG CAPSULE PO SCH (08:18)
[2018-03-27] MEDS: GABAPENTIN 300 MG CAPSULE GT SCH ×3 (08:18→17:37)
[2018-03-27] MEDS: MULTIVIT W/MINERALS 1 TAB TABLET GT SCH (08:18)
[2018-03-27] MEDS: BACLOFEN (10 MG) 10 MG TABLET GT SCH ×4 (08:18→21:35)
[2018-03-27] MEDS: METHADONE HCL 10 MG TABLET GT SCH (08:56)
[2018-03-27] MEDS: HYDROCODONE/APAP 5/325MG 1 EACH TABLET GT SCH ×2 (10:30→21:35)
[2018-03-27] MEDS: HYDROGEN PEROXIDE 480 ML BOTTLE TP SCH ×2 (11:00→21:58)
[2018-03-27] MEDS: HYDROGEL DRESSING 90 GM TUBE TP SCH ×4 (11:00→21:58)
[2018-03-27] MEDS: NYSTATIN/TRIAMCIN 15 GM CREAM 15 GM TUBE TP SCH ×2 (11:00→21:58)
[2018-03-27 20:17] VITALS: BP 145/84
--- NOTE | 2018-03-27 21:18 | NUR ---
PT RCVD TRACH'D ON COOL AEROSOL . PT PLACED ON MECHANICAL VENT PER MD ORDERS, WITH CHARTED SETTINGS. HHN TX GIVEN AND NO ADVERSE REACTION NOTED. SX DONE. PT TRACH PATENT AND SECURE. CUFF CHECKED VIA LDR NURSE. ALARMS ARE ON AND AUDIBLE. VENT PLUGGED INTO RED OUTLET. AMBU BAG AT BEDSIDE. WILL CONTINUE TO MONITOR. Addendum: 03/27/18 at 2119 by LUCIANA TRIMBLE RT Amended: Links added.
[2018-03-27] MEDS: ATORVASTATIN 10 MG TABLET GT SCH (21:35)
[2018-03-27] MEDS: ZINC SULFATE 220 MG CAPSULE GT SCH (21:35)
[2018-03-27] MEDS: POLYETHYLENE GLYCOL 3350 17 GM POWD.PACK GT SCH (21:35)
[2018-03-28] MEDS: IPRATROPIUM NEB FS 0.5 MG/2.5 ML AMPUL.NEB NEB SCH ×4 (00:54→19:31)
[2018-03-28] MEDS: CEFTAZIDIME 1 G in IV NS 0.9% 50 ML IV SCH ×3 (02:00→18:41)
[2018-03-28] MEDS: METHOCARBAMOL (750MG) 750 MG TABLET GT PRN (02:43)
[2018-03-28 07:52] VITALS: BP 149/89
[2018-03-28] MEDS: NYSTATIN/TRIAMCIN 15 GM CREAM 15 GM TUBE TP SCH ×2 (09:00→21:58)
[2018-03-28] MEDS: HYDROGEL DRESSING 90 GM TUBE TP SCH ×4 (09:00→21:58)
[2018-03-28] MEDS: HYDROGEN PEROXIDE 480 ML BOTTLE TP SCH ×2 (09:00→21:58)
[2018-03-28] MEDS: BACLOFEN (10 MG) 10 MG TABLET GT SCH ×4 (09:31→21:17)
[2018-03-28] MEDS: ESCITALOPRAM OXALATE (10 MG) 10 MG TABLET GT SCH (09:31)
[2018-03-28] MEDS: ACIDOPHILUS/BULGARICUS 1 EACH TAB.CHEW GT SCH ×3 (09:31→17:15)
[2018-03-28] MEDS: GABAPENTIN 300 MG CAPSULE GT SCH ×3 (09:34→17:15)
[2018-03-28] MEDS: METHADONE HCL 10 MG TABLET GT SCH ×2 (09:34→10:34)
[2018-03-28] MEDS: PROSTAT (PYXIS) 30 ML UDC GT SCH ×3 (09:35→17:15)
[2018-03-28] MEDS: CALCIUM CARBONATE 500 MG TAB.CHEW GT SCH ×3 (09:35→17:15)
[2018-03-28] MEDS: CALCITRIOL 0.25 MCG CAPSULE PO SCH (09:35)
[2018-03-28] MEDS: ASCORBIC ACID 500 MG TABLET GT SCH ×2 (09:35→17:15)
[2018-03-28] MEDS: HYDROCODONE/APAP 5/325MG 1 EACH TABLET GT SCH ×3 (09:35→21:18)
[2018-03-28] MEDS: MULTIVIT W/MINERALS 1 TAB TABLET GT SCH (09:35)
[2018-03-28] MEDS: FAMOTIDINE (20 MG) 20 MG TABLET GT SCH ×2 (09:35→21:17)
--- NOTE | 2018-03-28 09:39 | NUR ---
RT PT REC'D TRACHED ON THE VENT, PT TAKEN OFF VENT AND PLACED ON COOL AEROSOL PER MD ORDER. TRACH TUBE PATENT, SECURE, IN PLACE. PT IS AWAKE AND ALERT. HHN TX GIVEN WITH NO ADVERSE REACTIONS. NO SOB, NO RESPIRATORY DISTRESS NOTED AT THIS TIME, WILL CONTINUE TO MONITOR. Addendum: 03/28/18 at 0940 by BUFFY SHERWOOD RT Amended: Links added.
[2018-03-28] MEDS: HYDROCODONE/APAP 5/325MG 1 EACH TABLET GT PRN (18:14)
--- NOTE | 2018-03-28 19:31 | NUR ---
PT RCVD TRACH'D ON COOL AEROSOL. PLACED BACK ON NOC MECHANICAL VENT PER MD ORDERS WITH NOTED SETTINGS. PT IS AWAKE AND ALERT, BREATHING TX GIVEN AND NO ADVERSE REACTION NOTED. SX DONE. PT TRACH PATENT AND SECURE. ALARMS ARE SET AND AUDIBLE. VENT PLUGGED INTO RED OUTLET. AMBU BAG AT BEDSIDE. WILL CONTINUE TO MONITOR.
[2018-03-28 20:32] VITALS: BP 118/72
[2018-03-28] MEDS: ZINC SULFATE 220 MG CAPSULE GT SCH (21:17)
[2018-03-28] MEDS: POLYETHYLENE GLYCOL 3350 17 GM POWD.PACK GT SCH (21:17)
[2018-03-28] MEDS: ATORVASTATIN 10 MG TABLET GT SCH (21:17)
[2018-03-29] MEDS: IPRATROPIUM NEB FS 0.5 MG/2.5 ML AMPUL.NEB NEB SCH ×4 (00:36→20:20)
[2018-03-29] MEDS: CEFTAZIDIME 1 G in IV NS 0.9% 50 ML IV SCH ×3 (01:59→18:58)
[2018-03-29] MEDS: HYDROCODONE/APAP 5/325MG 1 EACH TABLET GT PRN (04:00)
--- NOTE | 2018-03-29 07:58 | NUR ---
RT NOTE: PATIENT RECEIVED TRACH ON MECHANICAL VENT AND PLACED ON 35%COOL AEROSOL @8LPM PER MD ORDER. TRACH CUFF DEFLATED. PATIENT IS TOLERATING WELL.
[2018-03-29] MEDS: CALCITRIOL 0.25 MCG CAPSULE PO SCH (09:00)
[2018-03-29] MEDS: ASCORBIC ACID 500 MG TABLET GT SCH ×2 (09:00→17:00)
[2018-03-29] MEDS: ACIDOPHILUS/BULGARICUS 1 EACH TAB.CHEW GT SCH ×3 (09:00→17:00)
[2018-03-29] MEDS: ESCITALOPRAM OXALATE (10 MG) 10 MG TABLET GT SCH (09:00)
[2018-03-29] MEDS: METHADONE HCL 10 MG TABLET GT SCH (09:00)
[2018-03-29] MEDS: BACLOFEN (10 MG) 10 MG TABLET GT SCH ×4 (09:00→21:17)
[2018-03-29] MEDS: FAMOTIDINE (20 MG) 20 MG TABLET GT SCH ×2 (09:00→21:18)
[2018-03-29] MEDS: CALCIUM CARBONATE 500 MG TAB.CHEW GT SCH ×3 (09:00→17:00)
[2018-03-29] MEDS: NYSTATIN/TRIAMCIN 15 GM CREAM 15 GM TUBE TP SCH ×2 (09:00→21:19)
[2018-03-29] MEDS: HYDROGEL DRESSING 90 GM TUBE TP SCH ×4 (09:00→21:19)
[2018-03-29] MEDS: HYDROCODONE/APAP 5/325MG 1 EACH TABLET GT SCH ×2 (09:00→21:18)
[2018-03-29] MEDS: PROSTAT (PYXIS) 30 ML UDC GT SCH ×3 (09:00→17:00)
[2018-03-29] MEDS: HYDROGEN PEROXIDE 480 ML BOTTLE TP SCH ×2 (09:00→21:19)
[2018-03-29] MEDS: MULTIVIT W/MINERALS 1 TAB TABLET GT SCH (09:00)
[2018-03-29] MEDS: GABAPENTIN 300 MG CAPSULE GT SCH ×3 (09:00→17:00)
--- NOTE | 2018-03-29 13:00 | NUR ---
Dr. Conroy notified that R buttock wound has purplish discoloration. assessed patient's wound but NNO given.
--- NOTE | 2018-03-29 14:00 | NUR ---
Seen and examined by Peggy Hoffman NP NNO given at this time. Resident continue on IV Fortaz, no adverse reaction noted.
[2018-03-29 19:27] VITALS: BP 136/82
[2018-03-29 20:00] VITALS: BP 122/65
[2018-03-29] MEDS: ZINC SULFATE 220 MG CAPSULE GT SCH (21:18)
[2018-03-29] MEDS: ENOXAPARIN SODIUM 40 MG/0.4 ML DISP.SYRIN SQ SCH (21:18)
[2018-03-29] MEDS: ATORVASTATIN 10 MG TABLET GT SCH (21:19)
[2018-03-29] MEDS: POLYETHYLENE GLYCOL 3350 17 GM POWD.PACK GT SCH (21:19)
[2018-03-30] MEDS: IPRATROPIUM NEB FS 0.5 MG/2.5 ML AMPUL.NEB NEB SCH ×4 (01:44→20:05)
[2018-03-30] MEDS: CEFTAZIDIME 1 G in IV NS 0.9% 50 ML IV SCH ×3 (02:07→18:20)
[2018-03-30] MEDS: HYDROCODONE/APAP 5/325MG 1 EACH TABLET GT PRN (05:11)
[2018-03-30 07:56] VITALS: BP 128/77
[2018-03-30] MEDS: METHADONE HCL 10 MG TABLET GT SCH (09:17)
[2018-03-30] MEDS: FAMOTIDINE (20 MG) 20 MG TABLET GT SCH ×2 (09:41→21:10)
[2018-03-30] MEDS: MULTIVIT W/MINERALS 1 TAB TABLET GT SCH (09:41)
[2018-03-30] MEDS: ESCITALOPRAM OXALATE (10 MG) 10 MG TABLET GT SCH (09:41)
[2018-03-30] MEDS: CALCIUM CARBONATE 500 MG TAB.CHEW GT SCH ×3 (09:41→17:47)
[2018-03-30] MEDS: CALCITRIOL 0.25 MCG CAPSULE PO SCH (09:41)
[2018-03-30] MEDS: ACIDOPHILUS/BULGARICUS 1 EACH TAB.CHEW GT SCH ×3 (09:41→17:47)
[2018-03-30] MEDS: ASCORBIC ACID 500 MG TABLET GT SCH ×2 (09:41→17:47)
[2018-03-30] MEDS: GABAPENTIN 300 MG CAPSULE GT SCH ×3 (09:41→17:47)
[2018-03-30] MEDS: PROSTAT (PYXIS) 30 ML UDC GT SCH ×3 (09:41→17:47)
[2018-03-30] MEDS: BACLOFEN (10 MG) 10 MG TABLET GT SCH ×4 (09:41→21:10)
[2018-03-30] MEDS: HYDROCODONE/APAP 5/325MG 1 EACH TABLET GT SCH ×2 (11:00→21:10)
[2018-03-30] MEDS: HYDROGEN PEROXIDE 480 ML BOTTLE TP SCH ×2 (11:30→21:13)
[2018-03-30] MEDS: NYSTATIN/TRIAMCIN 15 GM CREAM 15 GM TUBE TP SCH ×2 (11:30→21:13)
[2018-03-30] MEDS: HYDROGEL DRESSING 90 GM TUBE TP SCH ×4 (11:30→21:12)
--- NOTE | 2018-03-30 16:45 | NUR ---
Seen and examined by Dr. Walker, NNO given.
[2018-03-30 20:08] VITALS: BP 122/74
[2018-03-30] MEDS: ZINC SULFATE 220 MG CAPSULE GT SCH (21:11)
[2018-03-30] MEDS: ENOXAPARIN SODIUM 40 MG/0.4 ML DISP.SYRIN SQ SCH (21:12)
[2018-03-30] MEDS: ATORVASTATIN 10 MG TABLET GT SCH (21:13)
--- NOTE | 2018-03-30 21:52 | NUR ---
RT NOTE PATIENT RECEIVED ON COOL AEROSOL .PLACED PATIENT ON VENT WITH NOTED VENT SETTING PER NOC ORDER. HHN TREATMENT WAS GIVEN , TOLERATED WELL . ALARMS ON AND AUDIBLE. AMBUBAG AND SPARE TRACH AT BEDSIDE. TRACH TUBE PATENT AND SECURED.WILL CONTINUE TO MONITOR PATIENT. Addendum: 03/30/18 at 2155 by ROM ARAIZA RT Amended: Links added.
[2018-03-30] MEDS: POLYETHYLENE GLYCOL 3350 17 GM POWD.PACK GT SCH (22:03)
[2018-03-31] MEDS: METHOCARBAMOL (750MG) 750 MG TABLET GT PRN (01:22)
[2018-03-31] MEDS: IPRATROPIUM NEB FS 0.5 MG/2.5 ML AMPUL.NEB NEB SCH ×4 (01:46→19:50)
[2018-03-31] MEDS: CEFTAZIDIME 1 G in IV NS 0.9% 50 ML IV SCH ×2 (02:46→10:31)
[2018-03-31 07:59] VITALS: BP 120/62
[2018-03-31] MEDS: ALBUTEROL HALF STRENGTH 1.25 MG/3 ML VIAL.NEB IH PRN (08:26)
[2018-03-31] MEDS: HYDROGEL DRESSING 90 GM TUBE TP SCH ×4 (09:00→21:57)
[2018-03-31] MEDS: NYSTATIN/TRIAMCIN 15 GM CREAM 15 GM TUBE TP SCH ×2 (09:00→21:57)
[2018-03-31] MEDS: HYDROCODONE/APAP 5/325MG 1 EACH TABLET GT SCH ×2 (09:00→21:28)
[2018-03-31] MEDS: HYDROGEN PEROXIDE 480 ML BOTTLE TP SCH ×2 (09:00→21:57)
[2018-03-31] MEDS: GABAPENTIN 300 MG CAPSULE GT SCH ×3 (09:48→17:57)
[2018-03-31] MEDS: BACLOFEN (10 MG) 10 MG TABLET GT SCH ×4 (09:49→21:27)
[2018-03-31] MEDS: ESCITALOPRAM OXALATE (10 MG) 10 MG TABLET GT SCH (09:49)
[2018-03-31] MEDS: FAMOTIDINE (20 MG) 20 MG TABLET GT SCH ×2 (09:50→21:28)
[2018-03-31] MEDS: CALCITRIOL 0.25 MCG CAPSULE PO SCH (09:51)
[2018-03-31] MEDS: ASCORBIC ACID 500 MG TABLET GT SCH ×2 (09:51→17:58)
[2018-03-31] MEDS: PROSTAT (PYXIS) 30 ML UDC GT SCH ×3 (09:51→17:58)
[2018-03-31] MEDS: CALCIUM CARBONATE 500 MG TAB.CHEW GT SCH ×3 (09:52→17:58)
[2018-03-31] MEDS: ACIDOPHILUS/BULGARICUS 1 EACH TAB.CHEW GT SCH ×3 (09:54→17:56)
[2018-03-31] MEDS: MULTIVIT W/MINERALS 1 TAB TABLET GT SCH (09:56)
[2018-03-31] MEDS: METHADONE HCL 10 MG TABLET GT SCH (10:00)
--- NOTE | 2018-03-31 20:05 | NUR ---
RT NOTE PT RECEIVED ON [facility] VENT ON THE FOLLOWING NOTED SETTINGS. PT HAS MOD THIN YELLOW/WHITE SECRETIONS WHEN SUCTIONED. BREATHING TX GIVEN, NO ADVERSE REACTIONS NOTED AT THIS TIME. VENT IS PLUGGED INTO RED OUTLET. ALARMS ARE ON AND AUDIBLE. SPARE TRACH AND AMBU BAG ARE AT BEDSIDE. WILL CONT TO MONITOR PT. Addendum: 03/31/18 at 2005 by JC VICTORIA RT Amended: Links added.
[2018-03-31 20:32] VITALS: BP 95/69
[2018-03-31] MEDS: POLYETHYLENE GLYCOL 3350 17 GM POWD.PACK GT SCH (21:28)
[2018-03-31] MEDS: ZINC SULFATE 220 MG CAPSULE GT SCH (21:28)
[2018-03-31] MEDS: ATORVASTATIN 10 MG TABLET GT SCH (21:28)
[2018-03-31] MEDS: ENOXAPARIN SODIUM 40 MG/0.4 ML DISP.SYRIN SQ SCH (21:28)
[2018-04-01] MEDS: IPRATROPIUM NEB FS 0.5 MG/2.5 ML AMPUL.NEB NEB SCH ×4 (01:24→18:45)
[2018-04-01] MEDS: METHOCARBAMOL (750MG) 750 MG TABLET GT PRN ×2 (02:39→12:45)
[2018-04-01] MEDS: HYDROCODONE/APAP 5/325MG 1 EACH TABLET GT PRN (04:39)
[2018-04-01 08:05] VITALS: BP 121/78
[2018-04-01] MEDS: METHADONE HCL 10 MG TABLET GT SCH (09:11)
[2018-04-01] MEDS: ASCORBIC ACID 500 MG TABLET GT SCH ×2 (09:24→17:00)
[2018-04-01] MEDS: GABAPENTIN 300 MG CAPSULE GT SCH ×3 (09:24→17:00)
[2018-04-01] MEDS: PROSTAT (PYXIS) 30 ML UDC GT SCH ×3 (09:24→17:00)
[2018-04-01] MEDS: ESCITALOPRAM OXALATE (10 MG) 10 MG TABLET GT SCH (09:24)
[2018-04-01] MEDS: FAMOTIDINE (20 MG) 20 MG TABLET GT SCH ×2 (09:24→21:15)
[2018-04-01] MEDS: CALCITRIOL 0.25 MCG CAPSULE PO SCH (09:24)
[2018-04-01] MEDS: CALCIUM CARBONATE 500 MG TAB.CHEW GT SCH ×3 (09:24→17:00)
[2018-04-01] MEDS: ACIDOPHILUS/BULGARICUS 1 EACH TAB.CHEW GT SCH ×3 (09:24→17:00)
[2018-04-01] MEDS: BACLOFEN (10 MG) 10 MG TABLET GT SCH ×4 (09:24→21:14)
[2018-04-01] MEDS: MULTIVIT W/MINERALS 1 TAB TABLET GT SCH (09:25)
[2018-04-01] MEDS: HYDROCODONE/APAP 5/325MG 1 EACH TABLET GT SCH ×2 (10:30→21:15)
[2018-04-01] MEDS: HYDROGEN PEROXIDE 480 ML BOTTLE TP SCH ×2 (11:10→21:16)
[2018-04-01] MEDS: NYSTATIN/TRIAMCIN 15 GM CREAM 15 GM TUBE TP SCH ×2 (11:10→21:16)
[2018-04-01] MEDS: HYDROGEL DRESSING 90 GM TUBE TP SCH ×4 (11:10→21:15)
[2018-04-01 20:29] VITALS: BP 112/69
[2018-04-01] MEDS: ENOXAPARIN SODIUM 40 MG/0.4 ML DISP.SYRIN SQ SCH (21:15)
[2018-04-01] MEDS: ZINC SULFATE 220 MG CAPSULE GT SCH (21:15)
[2018-04-01] MEDS: ATORVASTATIN 10 MG TABLET GT SCH (21:16)
[2018-04-01] MEDS: POLYETHYLENE GLYCOL 3350 17 GM POWD.PACK GT SCH (21:16)
[2018-04-02] MEDS: IPRATROPIUM NEB FS 0.5 MG/2.5 ML AMPUL.NEB NEB SCH ×4 (00:51→19:47)
[2018-04-02] MEDS: ALBUTEROL HALF STRENGTH 1.25 MG/3 ML VIAL.NEB IH PRN (07:43)
--- NOTE | 2018-04-02 07:44 | NUR ---
RT Pt received trached on the vent with noted settings. Pt is awake and alert. Vent alarms are set and audible with BVM by bedside. LIMOUSINE RENTAL CLERK cuff pressure noted. Vent is plugged into red outlet. HHN tx given with no adverse reactions. No respiratory distress noted at this time, will continue to monitor. Addendum: 04/02/18 at 0837 by ESPERANZA HOOPER RT Amended: Links added.
[2018-04-02 08:06] VITALS: BP 113/57
[2018-04-02] MEDS: METHADONE HCL 10 MG TABLET GT SCH (09:09)
[2018-04-02] MEDS: PROSTAT (PYXIS) 30 ML UDC GT SCH ×3 (09:12→17:45)
[2018-04-02] MEDS: ESCITALOPRAM OXALATE (10 MG) 10 MG TABLET GT SCH (09:12)
[2018-04-02] MEDS: MULTIVIT W/MINERALS 1 TAB TABLET GT SCH (09:12)
[2018-04-02] MEDS: ASCORBIC ACID 500 MG TABLET GT SCH ×2 (09:12→17:45)
[2018-04-02] MEDS: CALCIUM CARBONATE 500 MG TAB.CHEW GT SCH ×3 (09:12→17:45)
[2018-04-02] MEDS: CALCITRIOL 0.25 MCG CAPSULE PO SCH (09:12)
[2018-04-02] MEDS: BACLOFEN (10 MG) 10 MG TABLET GT SCH ×4 (09:12→21:07)
[2018-04-02] MEDS: ACIDOPHILUS/BULGARICUS 1 EACH TAB.CHEW GT SCH ×3 (09:12→17:45)
[2018-04-02] MEDS: GABAPENTIN 300 MG CAPSULE GT SCH ×3 (09:12→17:45)
[2018-04-02] MEDS: FAMOTIDINE (20 MG) 20 MG TABLET GT SCH ×2 (09:12→21:08)
[2018-04-02] MEDS: HYDROCODONE/APAP 5/325MG 1 EACH TABLET GT SCH ×2 (10:30→21:08)
[2018-04-02] MEDS: HYDROGEL DRESSING 90 GM TUBE TP SCH ×4 (11:10→21:08)
[2018-04-02] MEDS: NYSTATIN/TRIAMCIN 15 GM CREAM 15 GM TUBE TP SCH ×2 (11:10→21:09)
[2018-04-02] MEDS: HYDROGEN PEROXIDE 480 ML BOTTLE TP SCH ×2 (11:10→21:08)
[2018-04-02] MEDS: METHOCARBAMOL (750MG) 750 MG TABLET GT PRN (14:00)
--- NOTE | 2018-04-02 14:26 | NUR ---
Pt. was seeing by the podiatry Dr. De La Vega on 03/30 and an appointment was made for 04/20. Pt has a dentist appt wit Dr. Vaca on May 14.
[2018-04-02 20:11] VITALS: BP 108/66
[2018-04-02] MEDS: ZINC SULFATE 220 MG CAPSULE GT SCH (21:08)
[2018-04-02] MEDS: ENOXAPARIN SODIUM 40 MG/0.4 ML DISP.SYRIN SQ SCH (21:08)
[2018-04-02] MEDS: POLYETHYLENE GLYCOL 3350 17 GM POWD.PACK GT SCH (21:09)
[2018-04-02] MEDS: ATORVASTATIN 10 MG TABLET GT SCH (21:09)
[2018-04-03] MEDS: IPRATROPIUM NEB FS 0.5 MG/2.5 ML AMPUL.NEB NEB SCH ×4 (01:36→19:14)
--- NOTE | 2018-04-03 07:38 | NUR ---
Pt taken off vent and placed on CA as order for daily weaning. Addendum: 04/03/18 at 0738 by JAYLENE STORY RT Amended: Links added.
[2018-04-03 07:44] VITALS: BP 134/75
[2018-04-03] MEDS: NYSTATIN/TRIAMCIN 15 GM CREAM 15 GM TUBE TP SCH ×2 (09:00→21:27)
[2018-04-03] MEDS: HYDROGEN PEROXIDE 480 ML BOTTLE TP SCH ×2 (09:00→21:27)
[2018-04-03] MEDS: HYDROGEL DRESSING 90 GM TUBE TP SCH ×4 (09:00→21:27)
[2018-04-03] MEDS: GABAPENTIN 300 MG CAPSULE GT SCH ×3 (09:14→16:55)
[2018-04-03] MEDS: ACIDOPHILUS/BULGARICUS 1 EACH TAB.CHEW GT SCH ×3 (09:14→16:55)
[2018-04-03] MEDS: ESCITALOPRAM OXALATE (10 MG) 10 MG TABLET GT SCH (09:14)
[2018-04-03] MEDS: METHADONE HCL 10 MG TABLET GT SCH (09:14)
[2018-04-03] MEDS: BACLOFEN (10 MG) 10 MG TABLET GT SCH ×4 (09:14→21:25)
[2018-04-03] MEDS: PROSTAT (PYXIS) 30 ML UDC GT SCH ×3 (09:15→16:55)
[2018-04-03] MEDS: HYDROCODONE/APAP 5/325MG 1 EACH TABLET GT SCH ×2 (09:15→21:26)
[2018-04-03] MEDS: FAMOTIDINE (20 MG) 20 MG TABLET GT SCH ×2 (09:15→21:26)
[2018-04-03] MEDS: MULTIVIT W/MINERALS 1 TAB TABLET GT SCH (09:15)
[2018-04-03] MEDS: CALCITRIOL 0.25 MCG CAPSULE PO SCH (09:15)
[2018-04-03] MEDS: ASCORBIC ACID 500 MG TABLET GT SCH ×2 (09:15→16:55)
[2018-04-03] MEDS: CALCIUM CARBONATE 500 MG TAB.CHEW GT SCH ×3 (09:15→16:55)
--- NOTE | 2018-04-03 17:08 | NUR ---
FIO2 DECREASED TO 28% SPO2 98% - 100% ON ABOVE CHANGES. Addendum: 04/03/18 at 1709 by JAYLENE STORY RT Amended: Links added.
--- NOTE | 2018-04-03 17:45 | NUR ---
Per RT Cardenas, pt has been tolerating FiO2 28% on both cool aerosol and vent. Received order to decrease FiO2 to 28%. Addendum: 04/03/18 at 1748 by WINIFRED GARCÍA RN Pt's O2 sat 98-100% on FiO2 28%.
[2018-04-03 19:58] VITALS: BP 125/77
[2018-04-03] MEDS: ZINC SULFATE 220 MG CAPSULE GT SCH (21:26)
[2018-04-03] MEDS: ATORVASTATIN 10 MG TABLET GT SCH (21:27)
[2018-04-03] MEDS: ENOXAPARIN SODIUM 40 MG/0.4 ML DISP.SYRIN SQ SCH (21:27)
[2018-04-03] MEDS: POLYETHYLENE GLYCOL 3350 17 GM POWD.PACK GT SCH (21:27)
[2018-04-04] MEDS: IPRATROPIUM NEB FS 0.5 MG/2.5 ML AMPUL.NEB NEB SCH ×4 (01:56→19:40)
[2018-04-04 08:00] VITALS: BP 118/70
[2018-04-04] MEDS: BACLOFEN (10 MG) 10 MG TABLET GT SCH ×4 (08:38→21:13)
[2018-04-04] MEDS: ACIDOPHILUS/BULGARICUS 1 EACH TAB.CHEW GT SCH ×3 (08:38→17:02)
[2018-04-04] MEDS: GABAPENTIN 300 MG CAPSULE GT SCH ×3 (08:38→17:03)
[2018-04-04] MEDS: ESCITALOPRAM OXALATE (10 MG) 10 MG TABLET GT SCH (08:38)
[2018-04-04] MEDS: METHADONE HCL 10 MG TABLET GT SCH (08:38)
[2018-04-04] MEDS: CALCITRIOL 0.25 MCG CAPSULE PO SCH (08:39)
[2018-04-04] MEDS: MULTIVIT W/MINERALS 1 TAB TABLET GT SCH (08:39)
[2018-04-04] MEDS: CALCIUM CARBONATE 500 MG TAB.CHEW GT SCH ×3 (08:39→17:04)
[2018-04-04] MEDS: HYDROCODONE/APAP 5/325MG 1 EACH TABLET GT SCH ×2 (08:39→21:13)
[2018-04-04] MEDS: PROSTAT (PYXIS) 30 ML UDC GT SCH ×3 (08:39→17:03)
[2018-04-04] MEDS: ASCORBIC ACID 500 MG TABLET GT SCH ×2 (08:39→17:04)
[2018-04-04] MEDS: FAMOTIDINE (20 MG) 20 MG TABLET GT SCH ×2 (08:39→21:13)
[2018-04-04] MEDS: HYDROGEN PEROXIDE 480 ML BOTTLE TP SCH ×2 (09:00→22:00)
[2018-04-04] MEDS: NYSTATIN/TRIAMCIN 15 GM CREAM 15 GM TUBE TP SCH ×2 (09:10→22:00)
[2018-04-04] MEDS: HYDROGEL DRESSING 90 GM TUBE TP SCH ×4 (09:10→22:00)
--- NOTE | 2018-04-04 09:17 | NUR ---
RT RECEIVED PT TRACH ON VENT. PT PLACED ON CA 28% PER MD ORDER. PT TOLERATING SETTINGS WELL. SX WITH MOD THK YELLOW SECRETIONS. AMBU BAG AND SPARE TRACH NOTED HOB. BREATHING TX GIVEN AND NO ADV REACTION. PT ON CONTINUOUS PULSE OX. SPO2 AND HR WITHIN NORMAL LIMITS. NO SOB OR RESP DISTRESS NOTED, WILL CONTINUE TO MONITOR T/O SHIFT.
--- NOTE | 2018-04-04 14:00 | NUR ---
Seen and examined by Peggy Hoffman NP NNO given.
[2018-04-04 20:30] VITALS: BP 109/71
--- NOTE | 2018-04-04 20:51 | NUR ---
RT Pt received trached on cool aerosol then placed on vent with noted settings. Pt is awake and alert. Vent alarms are set and audible with BVM by bedside. THERMOSTAT MACHINE TENDER cuff pressure noted. Vent is plugged into red outlet. HHN tx given with no adverse reactions. No respiratory distress noted at this time, will continue to monitor. Addendum: 04/04/18 at 2052 by BUFFY SHERWOOD RT Amended: Links added.
[2018-04-04] MEDS: ZINC SULFATE 220 MG CAPSULE GT SCH (21:13)
[2018-04-04] MEDS: ENOXAPARIN SODIUM 40 MG/0.4 ML DISP.SYRIN SQ SCH (21:14)
[2018-04-04] MEDS: POLYETHYLENE GLYCOL 3350 17 GM POWD.PACK GT SCH (21:14)
[2018-04-04] MEDS: ATORVASTATIN 10 MG TABLET GT SCH (21:14)
[2018-04-05] MEDS: IPRATROPIUM NEB FS 0.5 MG/2.5 ML AMPUL.NEB NEB SCH ×4 (01:55→18:57)
[2018-04-05 07:44] VITALS: BP 136/67
--- NOTE | 2018-04-05 08:15 | NUR ---
RT NOTE: PATIENT RECEIVED TRACH ON MECHANICAL VENT AND PLACED ON 35%COOL AEROSOL @8LPM PER MD ORDER. TRACH CUFF DEFLATED. PATIENT IS TOLERATING WELL. WILL CONTINUE TO MONITOR.
[2018-04-05] MEDS: CALCIUM CARBONATE 500 MG TAB.CHEW GT SCH ×3 (09:00→17:59)
[2018-04-05] MEDS: ASCORBIC ACID 500 MG TABLET GT SCH ×2 (09:00→17:59)
[2018-04-05] MEDS: MULTIVIT W/MINERALS 1 TAB TABLET GT SCH (09:00)
[2018-04-05] MEDS: PROSTAT (PYXIS) 30 ML UDC GT SCH ×3 (09:00→17:59)
[2018-04-05] MEDS: CALCITRIOL 0.25 MCG CAPSULE PO SCH (09:00)
[2018-04-05] MEDS: FAMOTIDINE (20 MG) 20 MG TABLET GT SCH ×2 (09:00→21:38)
[2018-04-05] MEDS: ACIDOPHILUS/BULGARICUS 1 EACH TAB.CHEW GT SCH ×3 (09:59→17:59)
[2018-04-05] MEDS: GABAPENTIN 300 MG CAPSULE GT SCH ×3 (09:59→17:59)
[2018-04-05] MEDS: ESCITALOPRAM OXALATE (10 MG) 10 MG TABLET GT SCH (09:59)
[2018-04-05] MEDS: METHADONE HCL 10 MG TABLET GT SCH (09:59)
[2018-04-05] MEDS: BACLOFEN (10 MG) 10 MG TABLET GT SCH ×4 (09:59→21:38)
[2018-04-05] MEDS: HYDROCODONE/APAP 5/325MG 1 EACH TABLET GT SCH ×2 (10:00→21:38)
[2018-04-05] MEDS: NYSTATIN/TRIAMCIN 15 GM CREAM 15 GM TUBE TP SCH ×2 (10:30→22:00)
[2018-04-05] MEDS: HYDROGEL DRESSING 90 GM TUBE TP SCH ×4 (10:30→22:00)
[2018-04-05] MEDS: HYDROGEN PEROXIDE 480 ML BOTTLE TP SCH ×2 (10:30→22:00)
[2018-04-05 20:13] VITALS: BP 109/61
[2018-04-05] MEDS: ZINC SULFATE 220 MG CAPSULE GT SCH (21:38)
[2018-04-05] MEDS: ATORVASTATIN 10 MG TABLET GT SCH (21:39)
[2018-04-05] MEDS: POLYETHYLENE GLYCOL 3350 17 GM POWD.PACK GT SCH (21:39)
[2018-04-05] MEDS: ENOXAPARIN SODIUM 40 MG/0.4 ML DISP.SYRIN SQ SCH (21:39)
[2018-04-05] MEDS: MAGNESIUM HYDROXIDE 30 ML UDC GT PRN (23:00)
[2018-04-06] MEDS: IPRATROPIUM NEB FS 0.5 MG/2.5 ML AMPUL.NEB NEB SCH ×4 (01:54→19:36)
--- NOTE | 2018-04-06 04:30 | NUR ---
RT pt remains on [facility] vent t/o the night. No resp distress noted. svn given inline. trach secure and patent. Addendum: 04/06/18 at 0430 by YESICA ROACH RT Amended: Links added.
[2018-04-06] MEDS: HYDROCODONE/APAP 5/325MG 1 EACH TABLET GT PRN (06:43)
[2018-04-06 07:48] VITALS: BP 127/72
[2018-04-06] MEDS: ESCITALOPRAM OXALATE (10 MG) 10 MG TABLET GT SCH (09:42)
[2018-04-06] MEDS: BACLOFEN (10 MG) 10 MG TABLET GT SCH ×4 (09:42→21:14)
[2018-04-06] MEDS: ACIDOPHILUS/BULGARICUS 1 EACH TAB.CHEW GT SCH ×3 (09:42→17:52)
[2018-04-06] MEDS: ASCORBIC ACID 500 MG TABLET GT SCH ×2 (09:43→17:52)
[2018-04-06] MEDS: CALCIUM CARBONATE 500 MG TAB.CHEW GT SCH ×3 (09:43→17:52)
[2018-04-06] MEDS: FAMOTIDINE (20 MG) 20 MG TABLET GT SCH ×2 (09:43→21:14)
[2018-04-06] MEDS: MULTIVIT W/MINERALS 1 TAB TABLET GT SCH (09:43)
[2018-04-06] MEDS: GABAPENTIN 300 MG CAPSULE GT SCH ×3 (09:43→17:52)
[2018-04-06] MEDS: PROSTAT (PYXIS) 30 ML UDC GT SCH ×3 (09:43→17:52)
[2018-04-06] MEDS: METHADONE HCL 10 MG TABLET GT SCH (09:43)
[2018-04-06] MEDS: CALCITRIOL 0.25 MCG CAPSULE PO SCH (09:43)
[2018-04-06] MEDS: HYDROCODONE/APAP 5/325MG 1 EACH TABLET GT SCH ×2 (11:00→21:14)
--- NOTE | 2018-04-06 11:29 | NUR ---
RAVI communicated with resident's sister in law Alka that resident will have a podiatry appt on April 20 and a dentist appt on May 14. RAVI reconfirmed IDT mtg on 04/13, but Tiffanybertin will not be able to attend it.
[2018-04-06] MEDS: NYSTATIN/TRIAMCIN 15 GM CREAM 15 GM TUBE TP SCH ×2 (11:30→22:00)
[2018-04-06] MEDS: HYDROGEN PEROXIDE 480 ML BOTTLE TP SCH ×2 (11:30→22:00)
[2018-04-06] MEDS: HYDROGEL DRESSING 90 GM TUBE TP SCH ×4 (11:30→22:00)
[2018-04-06 19:52] VITALS: BP 116/71
[2018-04-06] MEDS: ZINC SULFATE 220 MG CAPSULE GT SCH (21:14)
[2018-04-06] MEDS: POLYETHYLENE GLYCOL 3350 17 GM POWD.PACK GT SCH (21:15)
[2018-04-06] MEDS: ATORVASTATIN 10 MG TABLET GT SCH (21:15)
[2018-04-06] MEDS: ENOXAPARIN SODIUM 40 MG/0.4 ML DISP.SYRIN SQ SCH (21:15)
[2018-04-07] MEDS: IPRATROPIUM NEB FS 0.5 MG/2.5 ML AMPUL.NEB NEB SCH ×4 (01:19→19:27)
--- NOTE | 2018-04-07 07:43 | NUR ---
RT NOTE: PATIENT RECEIVED TRACH ON MECHANICAL VENT AND PLACED ON COOL AEROSOL PER MD ORDER. TRACH CUFF DEFLATED. PATIENT IS TOLERATING WELL.
[2018-04-07 08:56] VITALS: BP 118/64
[2018-04-07] MEDS: CALCITRIOL 0.25 MCG CAPSULE PO SCH (09:24)
[2018-04-07] MEDS: HYDROCODONE/APAP 5/325MG 1 EACH TABLET GT SCH ×2 (09:24→21:39)
[2018-04-07] MEDS: BACLOFEN (10 MG) 10 MG TABLET GT SCH ×4 (09:24→21:39)
[2018-04-07] MEDS: ACIDOPHILUS/BULGARICUS 1 EACH TAB.CHEW GT SCH ×3 (09:24→16:49)
[2018-04-07] MEDS: ESCITALOPRAM OXALATE (10 MG) 10 MG TABLET GT SCH (09:24)
[2018-04-07] MEDS: PROSTAT (PYXIS) 30 ML UDC GT SCH ×3 (09:24→16:49)
[2018-04-07] MEDS: METHADONE HCL 10 MG TABLET GT SCH (09:24)
[2018-04-07] MEDS: MULTIVIT W/MINERALS 1 TAB TABLET GT SCH (09:24)
[2018-04-07] MEDS: ASCORBIC ACID 500 MG TABLET GT SCH ×2 (09:24→16:49)
[2018-04-07] MEDS: CALCIUM CARBONATE 500 MG TAB.CHEW GT SCH ×3 (09:24→16:49)
[2018-04-07] MEDS: FAMOTIDINE (20 MG) 20 MG TABLET GT SCH ×2 (09:24→21:39)
[2018-04-07] MEDS: GABAPENTIN 300 MG CAPSULE GT SCH ×3 (09:24→16:49)
[2018-04-07] MEDS: HYDROGEL DRESSING 90 GM TUBE TP SCH ×4 (10:00→21:41)
[2018-04-07] MEDS: HYDROGEN PEROXIDE 480 ML BOTTLE TP SCH ×2 (10:00→21:41)
[2018-04-07] MEDS: NYSTATIN/TRIAMCIN 15 GM CREAM 15 GM TUBE TP SCH ×2 (10:00→21:41)
--- NOTE | 2018-04-07 10:47 | NUR ---
Seen and examined by Dr. Seaman, NNO given at this time.
[2018-04-07 19:32] VITALS: BP 126/74
[2018-04-07] MEDS: ZINC SULFATE 220 MG CAPSULE GT SCH (21:39)
[2018-04-07] MEDS: ENOXAPARIN SODIUM 40 MG/0.4 ML DISP.SYRIN SQ SCH (21:40)
[2018-04-07] MEDS: POLYETHYLENE GLYCOL 3350 17 GM POWD.PACK GT SCH (21:41)
[2018-04-07] MEDS: ATORVASTATIN 10 MG TABLET GT SCH (21:41)
[2018-04-08] MEDS: IPRATROPIUM NEB FS 0.5 MG/2.5 ML AMPUL.NEB NEB SCH ×4 (02:00→19:48)
[2018-04-08] MEDS: FAMOTIDINE (20 MG) 20 MG TABLET GT SCH ×2 (08:33→21:15)
[2018-04-08] MEDS: METHADONE HCL 10 MG TABLET GT SCH (08:33)
[2018-04-08] MEDS: ASCORBIC ACID 500 MG TABLET GT SCH ×2 (08:33→16:48)
[2018-04-08] MEDS: GABAPENTIN 300 MG CAPSULE GT SCH ×3 (08:33→16:48)
[2018-04-08] MEDS: HYDROCODONE/APAP 5/325MG 1 EACH TABLET GT SCH ×2 (08:33→21:15)
[2018-04-08] MEDS: ESCITALOPRAM OXALATE (10 MG) 10 MG TABLET GT SCH (08:33)
[2018-04-08] MEDS: PROSTAT (PYXIS) 30 ML UDC GT SCH ×3 (08:33→16:48)
[2018-04-08] MEDS: MULTIVIT W/MINERALS 1 TAB TABLET GT SCH (08:33)
[2018-04-08] MEDS: CALCIUM CARBONATE 500 MG TAB.CHEW GT SCH ×3 (08:33→16:48)
[2018-04-08] MEDS: BACLOFEN (10 MG) 10 MG TABLET GT SCH ×4 (08:33→21:14)
[2018-04-08] MEDS: ACIDOPHILUS/BULGARICUS 1 EACH TAB.CHEW GT SCH ×3 (08:33→16:48)
[2018-04-08] MEDS: CALCITRIOL 0.25 MCG CAPSULE PO SCH (08:34)
[2018-04-08] MEDS: HYDROGEN PEROXIDE 480 ML BOTTLE TP SCH ×2 (09:00→21:16)
[2018-04-08] MEDS: NYSTATIN/TRIAMCIN 15 GM CREAM 15 GM TUBE TP SCH ×2 (09:00→21:16)
[2018-04-08] MEDS: HYDROGEL DRESSING 90 GM TUBE TP SCH ×4 (09:00→21:16)
[2018-04-08 11:01] VITALS: BP 123/79
[2018-04-08 19:40] VITALS: BP 123/71
--- NOTE | 2018-04-08 20:02 | NUR ---
PATIENT RECEIVED ON 28% COOL AEROSOL T-TUBE THEN PLACED ON MECHANICAL VENTILATION WITH SETTINGS OF AC 12, 450 VT, 28%, +0. SUCTION PRN WHEN PATIENT REQUESTED. GIVEN IN-LINE TREATMENTS WITH NO ADVERSE REACTIONS. AMBU BAG AT BEDSIDE. VENT AND PULSE OXIMETER ALARMS AUDIBLE AND VISIBLE. VENT PLUGGED INTO RED OUTLET. Addendum: 04/08/18 at 2002 by ROLY BECERRIL RT Amended: Links added.
[2018-04-08] MEDS: ZINC SULFATE 220 MG CAPSULE GT SCH (21:15)
[2018-04-08] MEDS: ENOXAPARIN SODIUM 40 MG/0.4 ML DISP.SYRIN SQ SCH (21:15)
[2018-04-08] MEDS: ATORVASTATIN 10 MG TABLET GT SCH (21:16)
[2018-04-08] MEDS: POLYETHYLENE GLYCOL 3350 17 GM POWD.PACK GT SCH (21:16)
[2018-04-09] MEDS: IPRATROPIUM NEB FS 0.5 MG/2.5 ML AMPUL.NEB NEB SCH ×5 (01:30→19:15)
[2018-04-09] MEDS: ALBUTEROL HALF STRENGTH 1.25 MG/3 ML VIAL.NEB IH PRN (07:45)
[2018-04-09] MEDS: ESCITALOPRAM OXALATE (10 MG) 10 MG TABLET GT SCH (08:32)
[2018-04-09] MEDS: ACIDOPHILUS/BULGARICUS 1 EACH TAB.CHEW GT SCH ×3 (08:32→16:30)
[2018-04-09] MEDS: BACLOFEN (10 MG) 10 MG TABLET GT SCH ×4 (08:32→21:00)
[2018-04-09] MEDS: FAMOTIDINE (20 MG) 20 MG TABLET GT SCH ×2 (08:33→21:00)
[2018-04-09] MEDS: PROSTAT (PYXIS) 30 ML UDC GT SCH ×3 (08:33→16:30)
[2018-04-09] MEDS: METHADONE HCL 10 MG TABLET GT SCH (08:33)
[2018-04-09] MEDS: GABAPENTIN 300 MG CAPSULE GT SCH ×3 (08:33→16:30)
[2018-04-09] MEDS: ASCORBIC ACID 500 MG TABLET GT SCH ×2 (08:33→16:30)
[2018-04-09] MEDS: MULTIVIT W/MINERALS 1 TAB TABLET GT SCH (08:33)
[2018-04-09] MEDS: HYDROCODONE/APAP 5/325MG 1 EACH TABLET GT SCH ×2 (08:33→21:00)
[2018-04-09] MEDS: CALCITRIOL 0.25 MCG CAPSULE PO SCH (08:33)
[2018-04-09] MEDS: CALCIUM CARBONATE 500 MG TAB.CHEW GT SCH ×3 (08:33→16:30)
[2018-04-09 09:37] VITALS: BP 127/71
[2018-04-09] MEDS: NYSTATIN/TRIAMCIN 15 GM CREAM 15 GM TUBE TP SCH ×2 (09:47→21:00)
[2018-04-09] MEDS: HYDROGEN PEROXIDE 480 ML BOTTLE TP SCH ×2 (09:47→21:00)
[2018-04-09] MEDS: HYDROGEL DRESSING 90 GM TUBE TP SCH ×4 (09:47→21:00)
--- NOTE | 2018-04-09 19:17 | NUR ---
RT pt remains on [facility] vent t/o the night. No resp distress noted. svn given inline. trach secure and patent. Addendum: 04/09/18 at 1917 by JOSÉ LUIS HARMAN RT Amended: Links added.
[2018-04-09 20:04] VITALS: BP 123/96
[2018-04-09] MEDS: ZINC SULFATE 220 MG CAPSULE GT SCH (21:00)
[2018-04-09] MEDS: ENOXAPARIN SODIUM 40 MG/0.4 ML DISP.SYRIN SQ SCH (21:00)
[2018-04-09] MEDS: POLYETHYLENE GLYCOL 3350 17 GM POWD.PACK GT SCH (22:23)
[2018-04-09] MEDS: ATORVASTATIN 10 MG TABLET GT SCH (22:23)
[2018-04-10] MEDS: IPRATROPIUM NEB FS 0.5 MG/2.5 ML AMPUL.NEB NEB SCH ×4 (01:27→19:04)
[2018-04-10] MEDS: ALBUTEROL HALF STRENGTH 1.25 MG/3 ML VIAL.NEB IH PRN (07:22)
[2018-04-10 07:38] VITALS: BP 126/71
[2018-04-10] MEDS: ASCORBIC ACID 500 MG TABLET GT SCH ×2 (08:52→16:35)
[2018-04-10] MEDS: GABAPENTIN 300 MG CAPSULE GT SCH ×3 (08:52→16:35)
[2018-04-10] MEDS: CALCITRIOL 0.25 MCG CAPSULE PO SCH (08:52)
[2018-04-10] MEDS: ACIDOPHILUS/BULGARICUS 1 EACH TAB.CHEW GT SCH ×3 (08:52→16:35)
[2018-04-10] MEDS: METHADONE HCL 10 MG TABLET GT SCH (08:52)
[2018-04-10] MEDS: PROSTAT (PYXIS) 30 ML UDC GT SCH ×3 (08:52→16:35)
[2018-04-10] MEDS: CALCIUM CARBONATE 500 MG TAB.CHEW GT SCH ×3 (08:52→16:35)
[2018-04-10] MEDS: BACLOFEN (10 MG) 10 MG TABLET GT SCH ×4 (08:52→21:19)
[2018-04-10] MEDS: ESCITALOPRAM OXALATE (10 MG) 10 MG TABLET GT SCH (08:52)
[2018-04-10] MEDS: MULTIVIT W/MINERALS 1 TAB TABLET GT SCH (08:52)
[2018-04-10] MEDS: FAMOTIDINE (20 MG) 20 MG TABLET GT SCH ×2 (08:52→21:20)
[2018-04-10] MEDS: HYDROGEL DRESSING 90 GM TUBE TP SCH ×4 (09:00→21:20)
[2018-04-10] MEDS: NYSTATIN/TRIAMCIN 15 GM CREAM 15 GM TUBE TP SCH ×2 (09:00→21:21)
[2018-04-10] MEDS: HYDROGEN PEROXIDE 480 ML BOTTLE TP SCH ×2 (09:00→21:21)
[2018-04-10] MEDS: HYDROCODONE/APAP 5/325MG 1 EACH TABLET GT SCH ×2 (09:00→21:20)
--- NOTE | 2018-04-10 09:00 | NUR ---
Seen and examined by Dr. Ugarte, no new order given.
--- NOTE | 2018-04-10 10:15 | NUR ---
RT PT IS AWAKE AND ALERT. MONTHLY TRACH CHANGE DONE PER PROTOCOL WITH NEW SHILEY 8 CUFFED. TRACH CHANGE DONE WITH NO COMPLICATIONS. EQUAL BILATERAL BREATHE SOUNDS AND CHEST RISE NOTED. NO BLEEDING OR REDNESS NOTICED AT TRACH SITE. PT PLACED BACK ON COOL AEROSOL. NO RESPIRATORY DISTRESS NOTED. Addendum: 04/10/18 at 1035 by ESPERANZA HOOPER RT Amended: Links added.
[2018-04-10 20:28] VITALS: BP 140/88
[2018-04-10] MEDS: ENOXAPARIN SODIUM 40 MG/0.4 ML DISP.SYRIN SQ SCH (21:20)
[2018-04-10] MEDS: ZINC SULFATE 220 MG CAPSULE GT SCH (21:20)
[2018-04-10] MEDS: ATORVASTATIN 10 MG TABLET GT SCH (21:21)
[2018-04-10] MEDS: POLYETHYLENE GLYCOL 3350 17 GM POWD.PACK GT SCH (21:21)
[2018-04-11] MEDS: IPRATROPIUM NEB FS 0.5 MG/2.5 ML AMPUL.NEB NEB SCH ×4 (01:11→19:34)
[2018-04-11 07:44] VITALS: BP 142/93
[2018-04-11] MEDS: METHADONE HCL 10 MG TABLET GT SCH (08:28)
[2018-04-11] MEDS: MULTIVIT W/MINERALS 1 TAB TABLET GT SCH (09:00)
[2018-04-11] MEDS: CALCIUM CARBONATE 500 MG TAB.CHEW GT SCH ×3 (09:00→16:17)
[2018-04-11] MEDS: PROSTAT (PYXIS) 30 ML UDC GT SCH ×3 (09:00→16:17)
[2018-04-11] MEDS: ESCITALOPRAM OXALATE (10 MG) 10 MG TABLET GT SCH (09:00)
[2018-04-11] MEDS: BACLOFEN (10 MG) 10 MG TABLET GT SCH ×4 (09:00→21:50)
[2018-04-11] MEDS: GABAPENTIN 300 MG CAPSULE GT SCH ×3 (09:00→16:16)
[2018-04-11] MEDS: FAMOTIDINE (20 MG) 20 MG TABLET GT SCH ×2 (09:00→21:51)
[2018-04-11] MEDS: ACIDOPHILUS/BULGARICUS 1 EACH TAB.CHEW GT SCH ×3 (09:00→16:16)
[2018-04-11] MEDS: ASCORBIC ACID 500 MG TABLET GT SCH ×2 (09:00→16:17)
[2018-04-11] MEDS: CALCITRIOL 0.25 MCG CAPSULE PO SCH (09:00)
[2018-04-11] MEDS: HYDROCODONE/APAP 5/325MG 1 EACH TABLET GT SCH ×2 (11:30→21:51)
[2018-04-11] MEDS: HYDROGEN PEROXIDE 480 ML BOTTLE TP SCH ×2 (12:30→22:30)
[2018-04-11] MEDS: HYDROGEL DRESSING 90 GM TUBE TP SCH ×4 (12:30→22:30)
[2018-04-11] MEDS: NYSTATIN/TRIAMCIN 15 GM CREAM 15 GM TUBE TP SCH ×2 (12:30→22:30)
--- NOTE | 2018-04-11 19:34 | NUR ---
RT NOTE: PLACED TRACH PT BACK ON [facility] VENT ON NOTED SETTINGS PER MD ORDERS. TRACH IS PATENT AND SECURED. HALL PORTER DONE. Q6 BREATHING TX GIVEN WITH NO ADVERSE REACTION NOTED. SX DONE PRN. VENT PLUGGED INTO RED OUTLET. ALARMS ON AND AUDIBLE. NAIMA BAG @ BEDSIDE. NO RESP DISTRESS AT THIS TIME. WILL CONT TO MONITOR PT. Addendum: 04/12/18 at 0229 by SOBIA VILLA RT Amended: Links added.
[2018-04-11 19:51] VITALS: BP 111/72
[2018-04-11] MEDS: ZINC SULFATE 220 MG CAPSULE GT SCH (21:51)
[2018-04-11] MEDS: ENOXAPARIN SODIUM 40 MG/0.4 ML DISP.SYRIN SQ SCH (21:51)
[2018-04-11] MEDS: POLYETHYLENE GLYCOL 3350 17 GM POWD.PACK GT SCH (21:52)
[2018-04-11] MEDS: ATORVASTATIN 10 MG TABLET GT SCH (21:52)
[2018-04-12] MEDS: IPRATROPIUM NEB FS 0.5 MG/2.5 ML AMPUL.NEB NEB SCH ×4 (01:09→19:52)
[2018-04-12] MEDS: ESCITALOPRAM OXALATE (10 MG) 10 MG TABLET GT SCH (09:45)
[2018-04-12] MEDS: ACIDOPHILUS/BULGARICUS 1 EACH TAB.CHEW GT SCH ×3 (09:45→16:40)
[2018-04-12] MEDS: BACLOFEN (10 MG) 10 MG TABLET GT SCH ×4 (09:45→21:00)
[2018-04-12] MEDS: MULTIVIT W/MINERALS 1 TAB TABLET GT SCH (09:46)
[2018-04-12] MEDS: ASCORBIC ACID 500 MG TABLET GT SCH ×2 (09:46→16:40)
[2018-04-12] MEDS: CALCIUM CARBONATE 500 MG TAB.CHEW GT SCH ×3 (09:46→16:40)
[2018-04-12] MEDS: CALCITRIOL 0.25 MCG CAPSULE PO SCH (09:46)
[2018-04-12] MEDS: HYDROCODONE/APAP 5/325MG 1 EACH TABLET GT SCH ×2 (09:46→21:00)
[2018-04-12] MEDS: GABAPENTIN 300 MG CAPSULE GT SCH ×3 (09:46→16:40)
[2018-04-12] MEDS: FAMOTIDINE (20 MG) 20 MG TABLET GT SCH ×2 (09:46→21:00)
[2018-04-12] MEDS: METHADONE HCL 10 MG TABLET GT SCH (09:46)
[2018-04-12] MEDS: PROSTAT (PYXIS) 30 ML UDC GT SCH ×3 (09:46→16:40)
[2018-04-12] MEDS: HYDROGEN PEROXIDE 480 ML BOTTLE TP SCH ×2 (10:20→21:00)
[2018-04-12] MEDS: HYDROGEL DRESSING 90 GM TUBE TP SCH ×4 (10:20→21:00)
[2018-04-12] MEDS: NYSTATIN/TRIAMCIN 15 GM CREAM 15 GM TUBE TP SCH ×2 (10:20→21:00)
[2018-04-12 10:41] VITALS: BP 132/63
[2018-04-12 19:54] VITALS: BP 108/68
[2018-04-12] MEDS: ENOXAPARIN SODIUM 40 MG/0.4 ML DISP.SYRIN SQ SCH (21:00)
[2018-04-12] MEDS: ZINC SULFATE 220 MG CAPSULE GT SCH (21:00)
[2018-04-12] MEDS: ATORVASTATIN 10 MG TABLET GT SCH (22:30)
[2018-04-12] MEDS: POLYETHYLENE GLYCOL 3350 17 GM POWD.PACK GT SCH (22:30)
[2018-04-13] MEDS: IPRATROPIUM NEB FS 0.5 MG/2.5 ML AMPUL.NEB NEB SCH ×4 (01:43→19:33)
[2018-04-13 08:04] VITALS: BP 130/76
[2018-04-13] MEDS: BACLOFEN (10 MG) 10 MG TABLET GT SCH ×4 (09:12→21:40)
[2018-04-13] MEDS: ACIDOPHILUS/BULGARICUS 1 EACH TAB.CHEW GT SCH ×3 (09:12→16:52)
[2018-04-13] MEDS: GABAPENTIN 300 MG CAPSULE GT SCH ×3 (09:12→16:53)
[2018-04-13] MEDS: ESCITALOPRAM OXALATE (10 MG) 10 MG TABLET GT SCH (09:12)
[2018-04-13] MEDS: METHADONE HCL 10 MG TABLET GT SCH (09:12)
[2018-04-13] MEDS: HYDROCODONE/APAP 5/325MG 1 EACH TABLET GT SCH ×2 (09:13→21:41)
[2018-04-13] MEDS: CALCITRIOL 0.25 MCG CAPSULE PO SCH (09:13)
[2018-04-13] MEDS: FAMOTIDINE (20 MG) 20 MG TABLET GT SCH ×2 (09:13→21:41)
[2018-04-13] MEDS: MULTIVIT W/MINERALS 1 TAB TABLET GT SCH (09:13)
[2018-04-13] MEDS: PROSTAT (PYXIS) 30 ML UDC GT SCH ×3 (09:13→16:53)
[2018-04-13] MEDS: ASCORBIC ACID 500 MG TABLET GT SCH ×2 (09:13→16:53)
[2018-04-13] MEDS: CALCIUM CARBONATE 500 MG TAB.CHEW GT SCH ×3 (09:13→16:53)
[2018-04-13] MEDS: HYDROGEN PEROXIDE 480 ML BOTTLE TP SCH ×2 (09:45→22:15)
[2018-04-13] MEDS: NYSTATIN/TRIAMCIN 15 GM CREAM 15 GM TUBE TP SCH ×2 (09:45→22:15)
[2018-04-13] MEDS: HYDROGEL DRESSING 90 GM TUBE TP SCH ×4 (09:45→22:15)
--- NOTE | 2018-04-13 09:57 | NUR ---
RT NOTE RECEIVED PT MECHANICALLY VENTILATED VIA CUFFED TRACHEOSTOMY TUBE. CUFF INFLATED VIA CATEGORY DEVELOPMENT MANAGER. TRACHEOSTOMY TUBE MIDLINE AND SECURE. VENTILATOR SETTINGS PRESCRIBED. ALARMS SET PER PROTOCOL AND AUDIBLE. VENT PLUGGED IN TO RED OUTLET. AMBU BAG AT BED SIDE. NO DISTRESS NOTED AT MOMENT. 0750- PT TAKEN OFF VENT PER MD ORDER. PT PLACED ON TRACH MASK @ 28% 02. NO DISTRESS NOTED. CUFF DEFLATED. PT SUCTIONED PRIOR TO TAKEN OFF VENT. SP02 100%. PT AWAKE AND ALERT. Addendum: 04/13/18 at 0959 by KAJAL ARAIZA RT Amended: Links added.
--- NOTE | 2018-04-13 14:30 | NUR ---
INTERDISCIPLINARY PLAN OF CARE CONFERENCE was held today. Resident's sister in law Esparza unable to attend today's IDT meeting. Dr. Ugarte and the interdisciplinary team discussed the current plan of care in detail. Current orders as well as treatments and medications were reviewed. Dr. Seaman seen and examined patient this morning NNO given.
[2018-04-13 20:02] VITALS: BP 123/63
[2018-04-13] MEDS: ZINC SULFATE 220 MG CAPSULE GT SCH (21:41)
[2018-04-13] MEDS: ENOXAPARIN SODIUM 40 MG/0.4 ML DISP.SYRIN SQ SCH (21:42)
[2018-04-13] MEDS: ATORVASTATIN 10 MG TABLET GT SCH (21:43)
[2018-04-13] MEDS: POLYETHYLENE GLYCOL 3350 17 GM POWD.PACK GT SCH (21:43)
[2018-04-14] MEDS: IPRATROPIUM NEB FS 0.5 MG/2.5 ML AMPUL.NEB NEB SCH ×4 (01:03→19:53)
[2018-04-14] MEDS: METHOCARBAMOL (750MG) 750 MG TABLET GT PRN (05:40)
[2018-04-14 08:01] VITALS: BP 110/58
[2018-04-14] MEDS: ACIDOPHILUS/BULGARICUS 1 EACH TAB.CHEW GT SCH ×3 (09:54→17:46)
[2018-04-14] MEDS: ESCITALOPRAM OXALATE (10 MG) 10 MG TABLET GT SCH (09:54)
[2018-04-14] MEDS: BACLOFEN (10 MG) 10 MG TABLET GT SCH ×4 (09:54→21:06)
[2018-04-14] MEDS: GABAPENTIN 300 MG CAPSULE GT SCH ×3 (09:54→17:46)
[2018-04-14] MEDS: METHADONE HCL 10 MG TABLET GT SCH (09:54)
[2018-04-14] MEDS: PROSTAT (PYXIS) 30 ML UDC GT SCH ×3 (09:55→17:46)
[2018-04-14] MEDS: CALCIUM CARBONATE 500 MG TAB.CHEW GT SCH ×3 (09:55→17:46)
[2018-04-14] MEDS: MULTIVIT W/MINERALS 1 TAB TABLET GT SCH (09:55)
[2018-04-14] MEDS: CALCITRIOL 0.25 MCG CAPSULE PO SCH (09:55)
[2018-04-14] MEDS: HYDROCODONE/APAP 5/325MG 1 EACH TABLET GT SCH ×2 (09:55→21:07)
[2018-04-14] MEDS: FAMOTIDINE (20 MG) 20 MG TABLET GT SCH ×2 (09:55→21:07)
[2018-04-14] MEDS: ASCORBIC ACID 500 MG TABLET GT SCH ×2 (09:55→17:46)
[2018-04-14] MEDS: HYDROGEN PEROXIDE 480 ML BOTTLE TP SCH ×2 (10:30→21:36)
[2018-04-14] MEDS: HYDROGEL DRESSING 90 GM TUBE TP SCH ×4 (10:30→21:36)
[2018-04-14] MEDS: NYSTATIN/TRIAMCIN 15 GM CREAM 15 GM TUBE TP SCH ×2 (10:30→21:36)
[2018-04-14] MEDS: ACETAMINOPHEN 650 MG/20 ML UDC- SA PATIENTS-PAIN ONLY GT PRN (17:47)
[2018-04-14 20:35] VITALS: BP 107/66
[2018-04-14] MEDS: ZINC SULFATE 220 MG CAPSULE GT SCH (21:07)
[2018-04-14] MEDS: ENOXAPARIN SODIUM 40 MG/0.4 ML DISP.SYRIN SQ SCH (21:07)
[2018-04-14] MEDS: ATORVASTATIN 10 MG TABLET GT SCH (21:08)
[2018-04-14] MEDS: POLYETHYLENE GLYCOL 3350 17 GM POWD.PACK GT SCH (21:08)
[2018-04-15] MEDS: IPRATROPIUM NEB FS 0.5 MG/2.5 ML AMPUL.NEB NEB SCH ×4 (01:35→19:39)
[2018-04-15 07:45] VITALS: BP 130/82
[2018-04-15] MEDS: ACIDOPHILUS/BULGARICUS 1 EACH TAB.CHEW GT SCH ×3 (08:44→16:58)
[2018-04-15] MEDS: ESCITALOPRAM OXALATE (10 MG) 10 MG TABLET GT SCH (08:44)
[2018-04-15] MEDS: BACLOFEN (10 MG) 10 MG TABLET GT SCH ×4 (08:45→21:21)
[2018-04-15] MEDS: GABAPENTIN 300 MG CAPSULE GT SCH ×3 (08:45→16:58)
[2018-04-15] MEDS: MULTIVIT W/MINERALS 1 TAB TABLET GT SCH (08:45)
[2018-04-15] MEDS: FAMOTIDINE (20 MG) 20 MG TABLET GT SCH ×2 (08:45→21:21)
[2018-04-15] MEDS: PROSTAT (PYXIS) 30 ML UDC GT SCH ×3 (08:45→16:58)
[2018-04-15] MEDS: ASCORBIC ACID 500 MG TABLET GT SCH ×2 (08:45→16:58)
[2018-04-15] MEDS: CALCITRIOL 0.25 MCG CAPSULE PO SCH (08:45)
[2018-04-15] MEDS: CALCIUM CARBONATE 500 MG TAB.CHEW GT SCH ×3 (08:45→16:58)
[2018-04-15] MEDS: NYSTATIN/TRIAMCIN 15 GM CREAM 15 GM TUBE TP SCH ×2 (09:00→21:22)
[2018-04-15] MEDS: HYDROGEL DRESSING 90 GM TUBE TP SCH ×4 (09:00→21:22)
[2018-04-15] MEDS: HYDROGEN PEROXIDE 480 ML BOTTLE TP SCH ×2 (09:00→21:22)
[2018-04-15] MEDS: HYDROCODONE/APAP 5/325MG 1 EACH TABLET GT SCH ×2 (09:00→21:21)
[2018-04-15] MEDS: METHADONE HCL 10 MG TABLET GT SCH (09:00)
[2018-04-15 19:30] VITALS: BP 101/58
[2018-04-15] MEDS: ZINC SULFATE 220 MG CAPSULE GT SCH (21:21)
[2018-04-15] MEDS: ENOXAPARIN SODIUM 40 MG/0.4 ML DISP.SYRIN SQ SCH (21:22)
[2018-04-15] MEDS: ATORVASTATIN 10 MG TABLET GT SCH (21:22)
[2018-04-15] MEDS: POLYETHYLENE GLYCOL 3350 17 GM POWD.PACK GT SCH (21:23)
[2018-04-16] MEDS: IPRATROPIUM NEB FS 0.5 MG/2.5 ML AMPUL.NEB NEB SCH ×4 (01:01→19:21)
--- NOTE | 2018-04-16 07:21 | NUR ---
PT PLACED OFF VENT ONTO C/A TERRANCE. WELL ZERO DISTRESS
--- NOTE | 2018-04-16 07:23 | NUR ---
PLACED OFF VENT ONTO C/A TERRANCE WELL. Addendum: 04/16/18 at 0723 by TAVO BALBUENA RT Amended: Links added.
[2018-04-16 07:56] VITALS: BP 129/75
[2018-04-16] MEDS: GABAPENTIN 300 MG CAPSULE GT SCH ×3 (08:55→16:14)
[2018-04-16] MEDS: BACLOFEN (10 MG) 10 MG TABLET GT SCH ×4 (08:55→21:23)
[2018-04-16] MEDS: ESCITALOPRAM OXALATE (10 MG) 10 MG TABLET GT SCH (08:55)
[2018-04-16] MEDS: ACIDOPHILUS/BULGARICUS 1 EACH TAB.CHEW GT SCH ×3 (08:55→16:14)
[2018-04-16] MEDS: PROSTAT (PYXIS) 30 ML UDC GT SCH ×3 (08:57→16:14)
[2018-04-16] MEDS: CALCIUM CARBONATE 500 MG TAB.CHEW GT SCH ×3 (08:57→16:14)
[2018-04-16] MEDS: CALCITRIOL 0.25 MCG CAPSULE PO SCH (08:57)
[2018-04-16] MEDS: FAMOTIDINE (20 MG) 20 MG TABLET GT SCH ×2 (08:57→21:24)
[2018-04-16] MEDS: METHADONE HCL 10 MG TABLET GT SCH (08:57)
[2018-04-16] MEDS: ASCORBIC ACID 500 MG TABLET GT SCH ×2 (08:57→16:14)
[2018-04-16] MEDS: MULTIVIT W/MINERALS 1 TAB TABLET GT SCH (08:57)
[2018-04-16] MEDS: HYDROGEN PEROXIDE 480 ML BOTTLE TP SCH ×2 (11:00→21:25)
[2018-04-16] MEDS: NYSTATIN/TRIAMCIN 15 GM CREAM 15 GM TUBE TP SCH ×2 (11:00→21:25)
[2018-04-16] MEDS: HYDROGEL DRESSING 90 GM TUBE TP SCH ×4 (11:00→21:25)
[2018-04-16] MEDS: HYDROCODONE/APAP 5/325MG 1 EACH TABLET GT SCH ×2 (11:00→21:24)
[2018-04-16 19:49] VITALS: BP 128/78
[2018-04-16] MEDS: ZINC SULFATE 220 MG CAPSULE GT SCH (21:24)
[2018-04-16] MEDS: ENOXAPARIN SODIUM 40 MG/0.4 ML DISP.SYRIN SQ SCH (21:24)
[2018-04-16] MEDS: ATORVASTATIN 10 MG TABLET GT SCH (21:25)
[2018-04-16] MEDS: POLYETHYLENE GLYCOL 3350 17 GM POWD.PACK GT SCH (21:25)
[2018-04-17] MEDS: IPRATROPIUM NEB FS 0.5 MG/2.5 ML AMPUL.NEB NEB SCH ×4 (01:43→19:11)
[2018-04-17 07:49] VITALS: BP 128/69
[2018-04-17] MEDS: ACIDOPHILUS/BULGARICUS 1 EACH TAB.CHEW GT SCH ×3 (08:37→16:48)
[2018-04-17] MEDS: ESCITALOPRAM OXALATE (10 MG) 10 MG TABLET GT SCH (08:37)
[2018-04-17] MEDS: BACLOFEN (10 MG) 10 MG TABLET GT SCH ×4 (08:37→21:19)
[2018-04-17] MEDS: CALCITRIOL 0.25 MCG CAPSULE PO SCH (08:38)
[2018-04-17] MEDS: FAMOTIDINE (20 MG) 20 MG TABLET GT SCH ×2 (08:38→21:20)
[2018-04-17] MEDS: PROSTAT (PYXIS) 30 ML UDC GT SCH ×3 (08:38→16:49)
[2018-04-17] MEDS: GABAPENTIN 300 MG CAPSULE GT SCH ×3 (08:38→16:49)
[2018-04-17] MEDS: METHADONE HCL 10 MG TABLET GT SCH (08:38)
[2018-04-17] MEDS: ASCORBIC ACID 500 MG TABLET GT SCH ×2 (08:38→16:49)
[2018-04-17] MEDS: MULTIVIT W/MINERALS 1 TAB TABLET GT SCH (08:38)
[2018-04-17] MEDS: CALCIUM CARBONATE 500 MG TAB.CHEW GT SCH ×3 (08:38→16:49)
[2018-04-17] MEDS: HYDROGEN PEROXIDE 480 ML BOTTLE TP SCH ×2 (09:00→21:20)
[2018-04-17] MEDS: HYDROGEL DRESSING 90 GM TUBE TP SCH ×4 (09:00→21:20)
[2018-04-17] MEDS: NYSTATIN/TRIAMCIN 15 GM CREAM 15 GM TUBE TP SCH ×2 (09:00→21:20)
[2018-04-17] MEDS: HYDROCODONE/APAP 5/325MG 1 EACH TABLET GT SCH ×2 (09:00→21:19)
--- NOTE | 2018-04-17 09:35 | NUR ---
Seen and examined by Dr. Ugarte, no new order given.
--- NOTE | 2018-04-17 11:37 | NUR ---
INTERDISCIPLINARY PLAN OF CARE CONFERENCE was held today. Resident's sister in law could not attend it. Dr. Ugarte and the interdisciplinary team discussed the current plan of care in detail. Current orders as well as treatments and medications were reviewed. No new orders were placed.
[2018-04-17 20:33] VITALS: BP 114/77
[2018-04-17] MEDS: ZINC SULFATE 220 MG CAPSULE GT SCH (21:20)
[2018-04-17] MEDS: ATORVASTATIN 10 MG TABLET GT SCH (21:20)
[2018-04-17] MEDS: ENOXAPARIN SODIUM 40 MG/0.4 ML DISP.SYRIN SQ SCH (21:20)
[2018-04-17] MEDS: POLYETHYLENE GLYCOL 3350 17 GM POWD.PACK GT SCH (21:21)
[2018-04-18] MEDS: IPRATROPIUM NEB FS 0.5 MG/2.5 ML AMPUL.NEB NEB SCH ×4 (01:10→19:30)
--- NOTE | 2018-04-18 04:26 | NUR ---
RT NOTE PT RECEIVED ON C/A THEN PLACED [facility] ON THE FOLLOWING NOTED SETTINGS. PT SX'D. NO RESP DISTRESS OR SOB NOTED AT THIS TIME. BREATHING TX GIVEN, NO ADVERSE REACTIONS NOTED AT THIS TIME. VENT IS PLUGGED INTO RED OUTLET. ALARMS ARE ON AND AUDIBLE. SPARE TRACH AND AMBU BAG ARE AT BEDSIDE. WILL CONT TO MONITOR PT. Addendum: 04/18/18 at 0428 by JC VICTORIA RT Amended: Links added.
[2018-04-18] MEDS: METHADONE HCL 10 MG TABLET GT SCH (09:53)
[2018-04-18] MEDS: CALCIUM CARBONATE 500 MG TAB.CHEW GT SCH ×3 (09:53→17:40)
[2018-04-18] MEDS: ASCORBIC ACID 500 MG TABLET GT SCH ×2 (09:53→17:40)
[2018-04-18] MEDS: BACLOFEN (10 MG) 10 MG TABLET GT SCH ×4 (09:53→20:06)
[2018-04-18] MEDS: MULTIVIT W/MINERALS 1 TAB TABLET GT SCH (09:53)
[2018-04-18] MEDS: ESCITALOPRAM OXALATE (10 MG) 10 MG TABLET GT SCH (09:53)
[2018-04-18] MEDS: PROSTAT (PYXIS) 30 ML UDC GT SCH ×3 (09:53→17:40)
[2018-04-18] MEDS: FAMOTIDINE (20 MG) 20 MG TABLET GT SCH ×2 (09:53→20:06)
[2018-04-18] MEDS: ACIDOPHILUS/BULGARICUS 1 EACH TAB.CHEW GT SCH ×3 (09:53→17:40)
[2018-04-18] MEDS: GABAPENTIN 300 MG CAPSULE GT SCH ×3 (09:53→17:40)
[2018-04-18] MEDS: CALCITRIOL 0.25 MCG CAPSULE PO SCH (09:53)
[2018-04-18] MEDS: HYDROCODONE/APAP 5/325MG 1 EACH TABLET GT SCH ×2 (09:53→20:06)
[2018-04-18] MEDS: NYSTATIN/TRIAMCIN 15 GM CREAM 15 GM TUBE TP SCH ×2 (10:30→20:08)
[2018-04-18] MEDS: HYDROGEN PEROXIDE 480 ML BOTTLE TP SCH ×2 (10:30→20:08)
[2018-04-18] MEDS: HYDROGEL DRESSING 90 GM TUBE TP SCH ×4 (10:30→20:08)
[2018-04-18] MEDS: ZINC SULFATE 220 MG CAPSULE GT SCH (20:06)
[2018-04-18] MEDS: ENOXAPARIN SODIUM 40 MG/0.4 ML DISP.SYRIN SQ SCH (20:08)
[2018-04-18 21:08] VITALS: BP 132/76
[2018-04-18] MEDS: POLYETHYLENE GLYCOL 3350 17 GM POWD.PACK GT SCH (21:24)
[2018-04-18] MEDS: ATORVASTATIN 10 MG TABLET GT SCH (21:24)
--- NOTE | 2018-04-18 21:48 | NUR ---
RT Pt received trached on cool aerosol then placed on vent with noted settings. Pt is awake and alert. Vent alarms are set and audible with BVM by bedside. FIBERGLASS INSULATION INSTALLER cuff pressure noted. Vent is plugged into red outlet. HHN tx given with no adverse reactions. No respiratory distress noted at this time, will continue to monitor. Addendum: 04/18/18 at 2149 by BUFFY SHERWOOD RT Amended: Links added.
[2018-04-19] MEDS: HYDROCODONE/APAP 5/325MG 1 EACH TABLET GT PRN (00:23)
[2018-04-19] MEDS: IPRATROPIUM NEB FS 0.5 MG/2.5 ML AMPUL.NEB NEB SCH ×4 (01:39→19:39)
[2018-04-19] MEDS: METHOCARBAMOL (750MG) 750 MG TABLET GT PRN (01:49)
[2018-04-19 07:51] VITALS: BP 109/58
[2018-04-19] MEDS: METHADONE HCL 10 MG TABLET GT SCH (09:09)
[2018-04-19] MEDS: MULTIVIT W/MINERALS 1 TAB TABLET GT SCH (09:47)
[2018-04-19] MEDS: GABAPENTIN 300 MG CAPSULE GT SCH ×3 (09:47→17:11)
[2018-04-19] MEDS: BACLOFEN (10 MG) 10 MG TABLET GT SCH ×4 (09:47→20:12)
[2018-04-19] MEDS: CALCIUM CARBONATE 500 MG TAB.CHEW GT SCH ×3 (09:47→17:11)
[2018-04-19] MEDS: ACIDOPHILUS/BULGARICUS 1 EACH TAB.CHEW GT SCH ×3 (09:47→17:11)
[2018-04-19] MEDS: CALCITRIOL 0.25 MCG CAPSULE PO SCH (09:47)
[2018-04-19] MEDS: ASCORBIC ACID 500 MG TABLET GT SCH ×2 (09:47→17:11)
[2018-04-19] MEDS: PROSTAT (PYXIS) 30 ML UDC GT SCH ×3 (09:47→17:11)
[2018-04-19] MEDS: FAMOTIDINE (20 MG) 20 MG TABLET GT SCH ×2 (09:47→20:14)
[2018-04-19] MEDS: ESCITALOPRAM OXALATE (10 MG) 10 MG TABLET GT SCH (09:47)
[2018-04-19] MEDS: HYDROCODONE/APAP 5/325MG 1 EACH TABLET GT SCH ×2 (10:15→20:14)
[2018-04-19] MEDS: HYDROGEL DRESSING 90 GM TUBE TP SCH ×4 (10:50→20:16)
[2018-04-19] MEDS: NYSTATIN/TRIAMCIN 15 GM CREAM 15 GM TUBE TP SCH ×2 (10:50→20:16)
[2018-04-19] MEDS: HYDROGEN PEROXIDE 480 ML BOTTLE TP SCH ×2 (10:50→20:16)
--- NOTE | 2018-04-19 12:16 | NUR ---
Spoke to Dr. Seaman and consulted with him regarding possibility of lowering dose of Lexapro d/t patient had not been having episode of sad facial expressions. Per Dr. Seaman, okay to lower dose to 5mg daily. Order carried out. Pt's [id number] Vilma notified and verbalized understanding, agreed with plan of care.
[2018-04-19] MEDS: ZINC SULFATE 220 MG CAPSULE GT SCH (20:14)
[2018-04-19] MEDS: ENOXAPARIN SODIUM 40 MG/0.4 ML DISP.SYRIN SQ SCH (20:16)
--- NOTE | 2018-04-19 20:28 | NUR ---
Seen by CARLI GASPAR.
[2018-04-19 20:39] VITALS: BP 125/78
--- NOTE | 2018-04-19 20:57 | NUR ---
RT Pt rec'd trached on cool aerosol then placed on vent with noted settings. Pt is awake and alert. Vent alarms are set and audible with BVM by bedside. LATEXER cuff pressure noted. Vent is plugged into red outlet. HHN tx given with no adverse reactions. No respiratory distress noted at this time, will continue to monitor. Addendum: 04/19/18 at 2057 by BUFFY SHERWOOD RT Amended: Links added.
[2018-04-19] MEDS: ATORVASTATIN 10 MG TABLET GT SCH (21:17)
[2018-04-19] MEDS: POLYETHYLENE GLYCOL 3350 17 GM POWD.PACK GT SCH (21:17)
[2018-04-20] MEDS: IPRATROPIUM NEB FS 0.5 MG/2.5 ML AMPUL.NEB NEB SCH ×4 (01:25→19:26)
[2018-04-20 07:51] VITALS: BP 131/71
[2018-04-20] MEDS: GABAPENTIN 300 MG CAPSULE GT SCH ×3 (08:09→17:39)
[2018-04-20] MEDS: BACLOFEN (10 MG) 10 MG TABLET GT SCH ×4 (08:09→21:14)
[2018-04-20] MEDS: ACIDOPHILUS/BULGARICUS 1 EACH TAB.CHEW GT SCH ×3 (08:09→17:39)
[2018-04-20] MEDS: FAMOTIDINE (20 MG) 20 MG TABLET GT SCH ×2 (08:10→21:13)
[2018-04-20] MEDS: ASCORBIC ACID 500 MG TABLET GT SCH ×2 (08:10→17:40)
[2018-04-20] MEDS: PROSTAT (PYXIS) 30 ML UDC GT SCH ×3 (08:10→17:39)
[2018-04-20] MEDS: CALCITRIOL 0.25 MCG CAPSULE PO SCH (08:10)
[2018-04-20] MEDS: CALCIUM CARBONATE 500 MG TAB.CHEW GT SCH ×3 (08:10→17:40)
[2018-04-20] MEDS: MULTIVIT W/MINERALS 1 TAB TABLET GT SCH (08:13)
--- NOTE | 2018-04-20 08:16 | NUR ---
Seen and examined by CARLI Hoffman, NNO given.
[2018-04-20] MEDS: HYDROGEN PEROXIDE 480 ML BOTTLE TP SCH ×2 (09:00→21:00)
[2018-04-20] MEDS: HYDROGEL DRESSING 90 GM TUBE TP SCH ×4 (09:00→21:00)
[2018-04-20] MEDS: METHADONE HCL 10 MG TABLET GT SCH (09:00)
[2018-04-20] MEDS: NYSTATIN/TRIAMCIN 15 GM CREAM 15 GM TUBE TP SCH ×2 (09:00→21:00)
[2018-04-20] MEDS: HYDROCODONE/APAP 5/325MG 1 EACH TABLET GT SCH ×2 (09:30→21:21)
[2018-04-20 19:47] VITALS: BP 125/76
[2018-04-20] MEDS: POLYETHYLENE GLYCOL 3350 17 GM POWD.PACK GT SCH (21:22)
[2018-04-20] MEDS: ATORVASTATIN 10 MG TABLET GT SCH (21:22)
[2018-04-20] MEDS: ENOXAPARIN SODIUM 40 MG/0.4 ML DISP.SYRIN SQ SCH (21:23)
[2018-04-20] MEDS: ZINC SULFATE 220 MG CAPSULE GT SCH (21:25)
[2018-04-21] MEDS: IPRATROPIUM NEB FS 0.5 MG/2.5 ML AMPUL.NEB NEB SCH ×4 (01:40→19:13)
[2018-04-21] MEDS: HYDROCODONE/APAP 5/325MG 1 EACH TABLET GT PRN (04:22)
[2018-04-21 07:59] VITALS: BP 145/71
[2018-04-21] MEDS: BACLOFEN (10 MG) 10 MG TABLET GT SCH ×4 (08:55→21:49)
[2018-04-21] MEDS: ACIDOPHILUS/BULGARICUS 1 EACH TAB.CHEW GT SCH ×3 (08:55→17:00)
[2018-04-21] MEDS: FAMOTIDINE (20 MG) 20 MG TABLET GT SCH ×2 (08:56→21:50)
[2018-04-21] MEDS: METHADONE HCL 10 MG TABLET GT SCH (08:56)
[2018-04-21] MEDS: GABAPENTIN 300 MG CAPSULE GT SCH ×3 (08:56→17:00)
[2018-04-21] MEDS: MULTIVIT W/MINERALS 1 TAB TABLET GT SCH (08:57)
[2018-04-21] MEDS: ASCORBIC ACID 500 MG TABLET GT SCH ×2 (08:57→17:00)
[2018-04-21] MEDS: PROSTAT (PYXIS) 30 ML UDC GT SCH ×3 (08:57→17:00)
[2018-04-21] MEDS: CALCIUM CARBONATE 500 MG TAB.CHEW GT SCH ×3 (08:57→17:00)
[2018-04-21] MEDS: CALCITRIOL 0.25 MCG CAPSULE PO SCH (08:57)
[2018-04-21] MEDS: HYDROCODONE/APAP 5/325MG 1 EACH TABLET GT SCH ×2 (13:13→21:50)
[2018-04-21] MEDS: HYDROGEL DRESSING 90 GM TUBE TP SCH ×4 (14:13→21:51)
[2018-04-21] MEDS: HYDROGEN PEROXIDE 480 ML BOTTLE TP SCH ×2 (14:13→21:51)
[2018-04-21] MEDS: NYSTATIN/TRIAMCIN 15 GM CREAM 15 GM TUBE TP SCH ×2 (14:13→21:51)
[2018-04-21 19:53] VITALS: BP 125/77
--- NOTE | 2018-04-21 20:37 | NUR ---
RT NOTE RECEIVED PT ON COOL AEROSOL. PLACED PT ON VENT PER MD ORDER. SETTINGS PRESCRIBED. ALARMS SET PER PROTOCOL AND AUDIBLE. VENT PLUGGED IN TO RED OUTLET. CUFF INFLATED. TRACH TUBE MIDLINE AND SECURE. PT AWAKE AND ALERT. NO DISTRESS NOTED AT MOMENT. AMBU BAG AT BED SIDE. Addendum: 04/21/18 at 2038 by KAJAL ARAIZA RT Amended: Links added.
[2018-04-21] MEDS: ENOXAPARIN SODIUM 40 MG/0.4 ML DISP.SYRIN SQ SCH (21:50)
[2018-04-21] MEDS: ZINC SULFATE 220 MG CAPSULE GT SCH (21:50)
[2018-04-21] MEDS: POLYETHYLENE GLYCOL 3350 17 GM POWD.PACK GT SCH (21:51)
[2018-04-21] MEDS: ATORVASTATIN 10 MG TABLET GT SCH (21:51)
[2018-04-22] MEDS: IPRATROPIUM NEB FS 0.5 MG/2.5 ML AMPUL.NEB NEB SCH ×4 (01:24→19:32)
[2018-04-22] MEDS: HYDROCODONE/APAP 5/325MG 1 EACH TABLET GT PRN (01:57)
[2018-04-22 07:38] VITALS: BP 155/76
[2018-04-22] MEDS: BACLOFEN (10 MG) 10 MG TABLET GT SCH ×4 (08:36→21:37)
[2018-04-22] MEDS: ESCITALOPRAM OXALATE (10 MG) 10 MG TABLET GT SCH (08:36)
[2018-04-22] MEDS: ACIDOPHILUS/BULGARICUS 1 EACH TAB.CHEW GT SCH ×3 (08:36→17:02)
[2018-04-22] MEDS: GABAPENTIN 300 MG CAPSULE GT SCH ×3 (08:37→17:02)
[2018-04-22] MEDS: CALCITRIOL 0.25 MCG CAPSULE PO SCH (08:37)
[2018-04-22] MEDS: FAMOTIDINE (20 MG) 20 MG TABLET GT SCH ×2 (08:37→21:37)
[2018-04-22] MEDS: PROSTAT (PYXIS) 30 ML UDC GT SCH ×3 (08:37→17:02)
[2018-04-22] MEDS: METHADONE HCL 10 MG TABLET GT SCH (08:37)
[2018-04-22] MEDS: CALCIUM CARBONATE 500 MG TAB.CHEW GT SCH ×3 (08:37→17:02)
[2018-04-22] MEDS: ASCORBIC ACID 500 MG TABLET GT SCH ×2 (08:37→17:02)
[2018-04-22] MEDS: MULTIVIT W/MINERALS 1 TAB TABLET GT SCH (08:37)
[2018-04-22] MEDS: HYDROCODONE/APAP 5/325MG 1 EACH TABLET GT SCH ×2 (09:00→21:37)
[2018-04-22] MEDS: NYSTATIN/TRIAMCIN 15 GM CREAM 15 GM TUBE TP SCH ×2 (09:00→21:38)
[2018-04-22] MEDS: HYDROGEL DRESSING 90 GM TUBE TP SCH ×4 (09:00→21:38)
[2018-04-22] MEDS: HYDROGEN PEROXIDE 480 ML BOTTLE TP SCH ×2 (09:00→21:38)
[2018-04-22 19:42] VITALS: BP 141/91
[2018-04-22] MEDS: ZINC SULFATE 220 MG CAPSULE GT SCH (21:37)
[2018-04-22] MEDS: ENOXAPARIN SODIUM 40 MG/0.4 ML DISP.SYRIN SQ SCH (21:38)
[2018-04-22] MEDS: ATORVASTATIN 10 MG TABLET GT SCH (21:38)
[2018-04-22] MEDS: POLYETHYLENE GLYCOL 3350 17 GM POWD.PACK GT SCH (21:39)
[2018-04-23] MEDS: IPRATROPIUM NEB FS 0.5 MG/2.5 ML AMPUL.NEB NEB SCH ×4 (01:56→19:40)
[2018-04-23] MEDS: HYDROCODONE/APAP 5/325MG 1 EACH TABLET GT PRN (03:58)
[2018-04-23 07:43] VITALS: BP 141/78
[2018-04-23] MEDS: CALCIUM CARBONATE 500 MG TAB.CHEW GT SCH ×3 (08:36→16:50)
[2018-04-23] MEDS: BACLOFEN (10 MG) 10 MG TABLET GT SCH ×4 (08:36→21:35)
[2018-04-23] MEDS: FAMOTIDINE (20 MG) 20 MG TABLET GT SCH ×2 (08:36→21:35)
[2018-04-23] MEDS: ESCITALOPRAM OXALATE (10 MG) 10 MG TABLET GT SCH (08:36)
[2018-04-23] MEDS: HYDROCODONE/APAP 5/325MG 1 EACH TABLET GT SCH ×2 (08:36→21:35)
[2018-04-23] MEDS: ASCORBIC ACID 500 MG TABLET GT SCH ×2 (08:36→16:50)
[2018-04-23] MEDS: METHADONE HCL 10 MG TABLET GT SCH (08:36)
[2018-04-23] MEDS: GABAPENTIN 300 MG CAPSULE GT SCH ×3 (08:36→16:50)
[2018-04-23] MEDS: CALCITRIOL 0.25 MCG CAPSULE PO SCH (08:36)
[2018-04-23] MEDS: ACIDOPHILUS/BULGARICUS 1 EACH TAB.CHEW GT SCH ×3 (08:36→16:50)
[2018-04-23] MEDS: MULTIVIT W/MINERALS 1 TAB TABLET GT SCH (08:36)
[2018-04-23] MEDS: PROSTAT (PYXIS) 30 ML UDC GT SCH ×3 (08:36→16:50)
[2018-04-23] MEDS: HYDROGEN PEROXIDE 480 ML BOTTLE TP SCH ×2 (09:42→21:58)
[2018-04-23] MEDS: HYDROGEL DRESSING 90 GM TUBE TP SCH ×4 (09:42→21:58)
[2018-04-23] MEDS: NYSTATIN/TRIAMCIN 15 GM CREAM 15 GM TUBE TP SCH ×2 (09:42→21:58)
[2018-04-23 19:52] VITALS: BP 101/52
[2018-04-23] MEDS: ENOXAPARIN SODIUM 40 MG/0.4 ML DISP.SYRIN SQ SCH (21:35)
[2018-04-23] MEDS: ZINC SULFATE 220 MG CAPSULE GT SCH (21:35)
[2018-04-23] MEDS: ATORVASTATIN 10 MG TABLET GT SCH (22:09)
[2018-04-23] MEDS: POLYETHYLENE GLYCOL 3350 17 GM POWD.PACK GT SCH (22:09)
[2018-04-24] MEDS: IPRATROPIUM NEB FS 0.5 MG/2.5 ML AMPUL.NEB NEB SCH ×4 (01:32→20:03)
[2018-04-24] MEDS: METHOCARBAMOL (750MG) 750 MG TABLET GT PRN (02:58)
[2018-04-24] MEDS: HYDROCODONE/APAP 5/325MG 1 EACH TABLET GT PRN (04:06)
[2018-04-24 07:54] VITALS: BP 137/72
[2018-04-24] MEDS: ACIDOPHILUS/BULGARICUS 1 EACH TAB.CHEW GT SCH ×3 (09:00→17:33)
[2018-04-24] MEDS: ASCORBIC ACID 500 MG TABLET GT SCH ×2 (09:00→17:33)
[2018-04-24] MEDS: ESCITALOPRAM OXALATE (10 MG) 10 MG TABLET GT SCH (09:00)
[2018-04-24] MEDS: CALCITRIOL 0.25 MCG CAPSULE PO SCH (09:00)
[2018-04-24] MEDS: METHADONE HCL 10 MG TABLET GT SCH (09:00)
[2018-04-24] MEDS: GABAPENTIN 300 MG CAPSULE GT SCH ×3 (09:00→17:33)
[2018-04-24] MEDS: PROSTAT (PYXIS) 30 ML UDC GT SCH ×3 (09:00→17:33)
[2018-04-24] MEDS: BACLOFEN (10 MG) 10 MG TABLET GT SCH ×4 (09:00→20:49)
[2018-04-24] MEDS: CALCIUM CARBONATE 500 MG TAB.CHEW GT SCH ×3 (09:00→17:33)
[2018-04-24] MEDS: FAMOTIDINE (20 MG) 20 MG TABLET GT SCH ×2 (09:00→20:49)
[2018-04-24] MEDS: MULTIVIT W/MINERALS 1 TAB TABLET GT SCH (09:00)
[2018-04-24] MEDS: HYDROCODONE/APAP 5/325MG 1 EACH TABLET GT SCH ×2 (11:00→20:49)
--- NOTE | 2018-04-24 11:17 | NUR ---
RT NOTE RECEIVED PT ON COOL AEROSOL. PT AWAKE AND ALERT. PT HAS SHILEY [address] CUFF DEFLATED. TRACH TUBE MIDLINE AND SECURE. VENT AT BED SIDE. AMBU BAG AT BED SIDE. NO DISTRESS NOTED AT MOMENT. Addendum: 04/24/18 at 1118 by KAJAL ARAIZA RT Amended: Links added.
[2018-04-24] MEDS: NYSTATIN/TRIAMCIN 15 GM CREAM 15 GM TUBE TP SCH ×2 (11:40→21:29)
[2018-04-24] MEDS: HYDROGEL DRESSING 90 GM TUBE TP SCH ×4 (11:40→21:29)
[2018-04-24] MEDS: HYDROGEN PEROXIDE 480 ML BOTTLE TP SCH ×2 (11:40→21:29)
[2018-04-24 20:08] VITALS: BP 121/78
[2018-04-24] MEDS: ZINC SULFATE 220 MG CAPSULE GT SCH (20:50)
[2018-04-24] MEDS: ENOXAPARIN SODIUM 40 MG/0.4 ML DISP.SYRIN SQ SCH (20:50)
[2018-04-24] MEDS: POLYETHYLENE GLYCOL 3350 17 GM POWD.PACK GT SCH (21:29)
[2018-04-24] MEDS: ATORVASTATIN 10 MG TABLET GT SCH (21:29)
[2018-04-25] MEDS: IPRATROPIUM NEB FS 0.5 MG/2.5 ML AMPUL.NEB NEB SCH ×4 (01:11→19:31)
[2018-04-25 08:48] VITALS: BP 135/81
[2018-04-25] MEDS: HYDROGEN PEROXIDE 480 ML BOTTLE TP SCH ×2 (09:00→21:11)
[2018-04-25] MEDS: NYSTATIN/TRIAMCIN 15 GM CREAM 15 GM TUBE TP SCH ×2 (09:00→21:11)
[2018-04-25] MEDS: HYDROGEL DRESSING 90 GM TUBE TP SCH ×4 (09:00→21:11)
[2018-04-25] MEDS: BACLOFEN (10 MG) 10 MG TABLET GT SCH ×4 (09:02→20:35)
[2018-04-25] MEDS: ESCITALOPRAM OXALATE (10 MG) 10 MG TABLET GT SCH (09:02)
[2018-04-25] MEDS: METHADONE HCL 10 MG TABLET GT SCH (09:02)
[2018-04-25] MEDS: ACIDOPHILUS/BULGARICUS 1 EACH TAB.CHEW GT SCH ×3 (09:02→17:38)
[2018-04-25] MEDS: GABAPENTIN 300 MG CAPSULE GT SCH ×3 (09:02→17:38)
[2018-04-25] MEDS: CALCIUM CARBONATE 500 MG TAB.CHEW GT SCH ×3 (09:03→17:38)
[2018-04-25] MEDS: FAMOTIDINE (20 MG) 20 MG TABLET GT SCH ×2 (09:03→20:36)
[2018-04-25] MEDS: HYDROCODONE/APAP 5/325MG 1 EACH TABLET GT SCH ×2 (09:03→20:36)
[2018-04-25] MEDS: ASCORBIC ACID 500 MG TABLET GT SCH ×2 (09:03→17:38)
[2018-04-25] MEDS: PROSTAT (PYXIS) 30 ML UDC GT SCH ×3 (09:03→17:38)
[2018-04-25] MEDS: MULTIVIT W/MINERALS 1 TAB TABLET GT SCH (09:03)
[2018-04-25] MEDS: CALCITRIOL 0.25 MCG CAPSULE PO SCH (09:03)
[2018-04-25 20:12] VITALS: BP 114/78
--- NOTE | 2018-04-25 20:26 | NUR ---
PATIENT RECEIVED ON COOL AEROSOL. PLACED PATIENT ON MECHANICAL VENTILATION PER NOC ORDER. CUFF CHECKED VIA BUSINESS LOAN PROCESSOR. AMBU BAG/BACK UP TRACH @ BEDSIDE. VENT PLUGGED INTO RED OUTLET. ALARMS ON AND AUDIBLE. TX GIVEN, NO ADVERSE REACTIONS NOTED. SX DONE, MODERATE THICK YELLOW SECRETIONS NOTED. PATIENT STABLE. WILL MONITOR. Addendum: 04/25/18 at 2026 by VERNELL CHRISTINE RT Amended: Links added.
[2018-04-25] MEDS: ZINC SULFATE 220 MG CAPSULE GT SCH (20:36)
[2018-04-25] MEDS: ENOXAPARIN SODIUM 40 MG/0.4 ML DISP.SYRIN SQ SCH (20:36)
[2018-04-25] MEDS: POLYETHYLENE GLYCOL 3350 17 GM POWD.PACK GT SCH (21:11)
[2018-04-25] MEDS: ATORVASTATIN 10 MG TABLET GT SCH (21:11)
[2018-04-26] MEDS: IPRATROPIUM NEB FS 0.5 MG/2.5 ML AMPUL.NEB NEB SCH ×4 (01:18→19:54)
[2018-04-26 07:59] VITALS: BP 138/64
--- NOTE | 2018-04-26 08:10 | NUR ---
RT NOTE: ALERT PATIENT WAS TAKEN OFF MECHANICAL VENT AND PLACED ON COOL AEROSOL PER MD ORDER. TOLERATING WELL.
[2018-04-26] MEDS: BACLOFEN (10 MG) 10 MG TABLET GT SCH ×4 (08:47→21:22)
[2018-04-26] MEDS: ACIDOPHILUS/BULGARICUS 1 EACH TAB.CHEW GT SCH ×3 (08:47→16:52)
[2018-04-26] MEDS: ESCITALOPRAM OXALATE (10 MG) 10 MG TABLET GT SCH (08:47)
[2018-04-26] MEDS: METHADONE HCL 10 MG TABLET GT SCH (08:48)
[2018-04-26] MEDS: CALCIUM CARBONATE 500 MG TAB.CHEW GT SCH ×3 (08:48→16:52)
[2018-04-26] MEDS: ASCORBIC ACID 500 MG TABLET GT SCH ×2 (08:48→16:52)
[2018-04-26] MEDS: HYDROCODONE/APAP 5/325MG 1 EACH TABLET GT SCH ×2 (08:48→21:22)
[2018-04-26] MEDS: FAMOTIDINE (20 MG) 20 MG TABLET GT SCH ×2 (08:48→21:22)
[2018-04-26] MEDS: GABAPENTIN 300 MG CAPSULE GT SCH ×3 (08:48→16:52)
[2018-04-26] MEDS: PROSTAT (PYXIS) 30 ML UDC GT SCH ×3 (08:48→16:52)
[2018-04-26] MEDS: MULTIVIT W/MINERALS 1 TAB TABLET GT SCH (08:48)
[2018-04-26] MEDS: CALCITRIOL 0.25 MCG CAPSULE PO SCH (08:48)
[2018-04-26] MEDS: HYDROGEN PEROXIDE 480 ML BOTTLE TP SCH ×2 (09:00→21:23)
[2018-04-26] MEDS: HYDROGEL DRESSING 90 GM TUBE TP SCH ×4 (09:00→21:23)
[2018-04-26] MEDS: NYSTATIN/TRIAMCIN 15 GM CREAM 15 GM TUBE TP SCH ×2 (09:00→21:23)
--- NOTE | 2018-04-26 12:07 | NUR ---
Ye arranged with resident's friend Bharti a phone call for tomorrow ( Donell ) at 8:30 AM
--- NOTE | 2018-04-26 20:05 | NUR ---
PATIENT RECEIVED ON 28% AEROSOL T-TUBE THEN PLACED BACK ON MECHANICAL VENTILATION FOR THE NIGHT WITH SETTINGS OF AC 12, 450 VT, 28%, +0. PRN SUCTION ONLY WHEN REQUESTED. GIVEN IN-LINE TREATMENTS WITH NO ADVERSE REACTIONS. AMBU BAG AT BEDSIDE. VENT AND PULSE OXIMETER ALARMS AUDIBLE AND VISIBLE. VENT PLUGGED INTO RED OUTLET. Addendum: 04/26/18 at 2007 by ROLY BECERRIL RT Amended: Links added.
[2018-04-26 20:28] VITALS: BP 107/62
[2018-04-26] MEDS: ZINC SULFATE 220 MG CAPSULE GT SCH (21:22)
[2018-04-26] MEDS: POLYETHYLENE GLYCOL 3350 17 GM POWD.PACK GT SCH (21:23)
[2018-04-26] MEDS: ENOXAPARIN SODIUM 40 MG/0.4 ML DISP.SYRIN SQ SCH (21:23)
[2018-04-26] MEDS: ATORVASTATIN 10 MG TABLET GT SCH (21:23)
[2018-04-27] MEDS: IPRATROPIUM NEB FS 0.5 MG/2.5 ML AMPUL.NEB NEB SCH ×4 (01:17→19:27)
[2018-04-27 07:49] VITALS: BP 162/90
[2018-04-27] MEDS: METHADONE HCL 10 MG TABLET GT SCH (08:57)
[2018-04-27] MEDS: BACLOFEN (10 MG) 10 MG TABLET GT SCH ×4 (08:57→21:24)
[2018-04-27] MEDS: ACIDOPHILUS/BULGARICUS 1 EACH TAB.CHEW GT SCH ×3 (08:57→17:55)
[2018-04-27] MEDS: GABAPENTIN 300 MG CAPSULE GT SCH ×3 (08:57→17:55)
[2018-04-27] MEDS: ESCITALOPRAM OXALATE (10 MG) 10 MG TABLET GT SCH (08:57)
[2018-04-27] MEDS: CALCIUM CARBONATE 500 MG TAB.CHEW GT SCH ×3 (08:58→17:55)
[2018-04-27] MEDS: FAMOTIDINE (20 MG) 20 MG TABLET GT SCH ×2 (08:58→21:23)
[2018-04-27] MEDS: MULTIVIT W/MINERALS 1 TAB TABLET GT SCH (08:58)
[2018-04-27] MEDS: ASCORBIC ACID 500 MG TABLET GT SCH ×2 (08:58→17:55)
[2018-04-27] MEDS: CALCITRIOL 0.25 MCG CAPSULE PO SCH (08:58)
[2018-04-27] MEDS: PROSTAT (PYXIS) 30 ML UDC GT SCH ×3 (08:58→17:55)
[2018-04-27] MEDS: HYDROCODONE/APAP 5/325MG 1 EACH TABLET GT SCH ×2 (08:58→21:25)
[2018-04-27] MEDS: HYDROGEN PEROXIDE 480 ML BOTTLE TP SCH ×2 (09:00→21:55)
[2018-04-27] MEDS: NYSTATIN/TRIAMCIN 15 GM CREAM 15 GM TUBE TP SCH ×2 (09:00→21:55)
[2018-04-27] MEDS: HYDROGEL DRESSING 90 GM TUBE TP SCH ×4 (09:00→21:55)
[2018-04-27] MEDS: MAGNESIUM HYDROXIDE 30 ML UDC GT PRN (17:55)
[2018-04-27 20:34] VITALS: BP 123/72
[2018-04-27] MEDS: ZINC SULFATE 220 MG CAPSULE GT SCH (21:23)
[2018-04-27] MEDS: ATORVASTATIN 10 MG TABLET GT SCH (21:24)
[2018-04-27] MEDS: POLYETHYLENE GLYCOL 3350 17 GM POWD.PACK GT SCH (21:24)
[2018-04-27] MEDS: ENOXAPARIN SODIUM 40 MG/0.4 ML DISP.SYRIN SQ SCH (21:24)
[2018-04-28] MEDS: IPRATROPIUM NEB FS 0.5 MG/2.5 ML AMPUL.NEB NEB SCH ×4 (00:55→20:13)
[2018-04-28] MEDS: METHOCARBAMOL (750MG) 750 MG TABLET GT PRN (03:10)
[2018-04-28 07:49] VITALS: BP 112/69
[2018-04-28] MEDS: BACLOFEN (10 MG) 10 MG TABLET GT SCH ×4 (09:12→21:21)
[2018-04-28] MEDS: ESCITALOPRAM OXALATE (10 MG) 10 MG TABLET GT SCH (09:12)
[2018-04-28] MEDS: METHADONE HCL 10 MG TABLET GT SCH (09:12)
[2018-04-28] MEDS: ACIDOPHILUS/BULGARICUS 1 EACH TAB.CHEW GT SCH ×3 (09:12→17:03)
[2018-04-28] MEDS: GABAPENTIN 300 MG CAPSULE GT SCH ×3 (09:12→17:04)
[2018-04-28] MEDS: CALCIUM CARBONATE 500 MG TAB.CHEW GT SCH ×3 (09:13→17:04)
[2018-04-28] MEDS: FAMOTIDINE (20 MG) 20 MG TABLET GT SCH ×2 (09:13→21:21)
[2018-04-28] MEDS: CALCITRIOL 0.25 MCG CAPSULE PO SCH (09:13)
[2018-04-28] MEDS: PROSTAT (PYXIS) 30 ML UDC GT SCH ×3 (09:13→17:04)
[2018-04-28] MEDS: MULTIVIT W/MINERALS 1 TAB TABLET GT SCH (09:13)
[2018-04-28] MEDS: ASCORBIC ACID 500 MG TABLET GT SCH ×2 (09:13→17:04)
[2018-04-28] MEDS: HYDROCODONE/APAP 5/325MG 1 EACH TABLET GT SCH ×2 (11:00→21:21)
[2018-04-28] MEDS: NYSTATIN/TRIAMCIN 15 GM CREAM 15 GM TUBE TP SCH ×2 (12:00→21:22)
[2018-04-28] MEDS: HYDROGEL DRESSING 90 GM TUBE TP SCH ×4 (12:00→21:22)
[2018-04-28] MEDS: HYDROGEN PEROXIDE 480 ML BOTTLE TP SCH ×2 (12:00→21:22)
--- NOTE | 2018-04-28 12:00 | NUR ---
Resident noted to have open skin on the L lateral back measuring 3 cm. x 1.5 cm., initial treatment initiated. MD informed, resident aware.
[2018-04-28 20:13] VITALS: BP 113/64
[2018-04-28] MEDS: ZINC SULFATE 220 MG CAPSULE GT SCH (21:21)
[2018-04-28] MEDS: POLYETHYLENE GLYCOL 3350 17 GM POWD.PACK GT SCH (21:22)
[2018-04-28] MEDS: ENOXAPARIN SODIUM 40 MG/0.4 ML DISP.SYRIN SQ SCH (21:22)
[2018-04-28] MEDS: ATORVASTATIN 10 MG TABLET GT SCH (21:22)
[2018-04-29] MEDS: IPRATROPIUM NEB FS 0.5 MG/2.5 ML AMPUL.NEB NEB SCH ×4 (00:50→19:13)
[2018-04-29 07:51] VITALS: BP 122/74
[2018-04-29] MEDS: HYDROCODONE/APAP 5/325MG 1 EACH TABLET GT SCH ×2 (09:00→21:01)
[2018-04-29] MEDS: NYSTATIN/TRIAMCIN 15 GM CREAM 15 GM TUBE TP SCH ×2 (09:00→21:02)
[2018-04-29] MEDS: HYDROGEN PEROXIDE 480 ML BOTTLE TP SCH ×2 (09:00→21:02)
[2018-04-29] MEDS: HYDROGEL DRESSING 90 GM TUBE TP SCH ×4 (09:00→21:02)
[2018-04-29] MEDS: GABAPENTIN 300 MG CAPSULE GT SCH ×3 (09:01→17:07)
[2018-04-29] MEDS: FAMOTIDINE (20 MG) 20 MG TABLET GT SCH ×2 (09:01→21:01)
[2018-04-29] MEDS: ESCITALOPRAM OXALATE (10 MG) 10 MG TABLET GT SCH (09:01)
[2018-04-29] MEDS: CALCITRIOL 0.25 MCG CAPSULE PO SCH (09:01)
[2018-04-29] MEDS: BACLOFEN (10 MG) 10 MG TABLET GT SCH ×4 (09:01→21:01)
[2018-04-29] MEDS: ASCORBIC ACID 500 MG TABLET GT SCH ×2 (09:01→17:07)
[2018-04-29] MEDS: CALCIUM CARBONATE 500 MG TAB.CHEW GT SCH ×3 (09:01→17:07)
[2018-04-29] MEDS: ACIDOPHILUS/BULGARICUS 1 EACH TAB.CHEW GT SCH ×3 (09:01→17:07)
[2018-04-29] MEDS: PROSTAT (PYXIS) 30 ML UDC GT SCH ×3 (09:01→17:07)
[2018-04-29] MEDS: MULTIVIT W/MINERALS 1 TAB TABLET GT SCH (09:01)
[2018-04-29] MEDS: METHADONE HCL 10 MG TABLET GT SCH (09:01)
[2018-04-29] MEDS: ZINC SULFATE 220 MG CAPSULE GT SCH (21:01)
[2018-04-29] MEDS: ATORVASTATIN 10 MG TABLET GT SCH (21:02)
[2018-04-29] MEDS: POLYETHYLENE GLYCOL 3350 17 GM POWD.PACK GT SCH (21:02)
[2018-04-29] MEDS: ENOXAPARIN SODIUM 40 MG/0.4 ML DISP.SYRIN SQ SCH (21:02)
--- NOTE | 2018-04-29 21:14 | NUR ---
RT NOTE FOUND TRACH PATIENT ON COOL AEROSOL, PLACED PATIENT ON VENT PER MD ORDER. HHN INLINE TREATMENT WAS GIVEN, NO ADVERSE REACTION NOTED. PRN SUCTION WAS DONE, TRACH TUBE PATENT AND SECURED. ALARMS ON AND AUDIBLE. VENT PLUGGED INTO RED OUTLET.SARAH BETH AND TAMI BARRETT AT [facility]. WILL CONTINUE TO MONITOR PATIENT. Addendum: 04/29/18 at 2120 by ROM ARAIZA RT Amended: Links added.
[2018-04-30] MEDS: IPRATROPIUM NEB FS 0.5 MG/2.5 ML AMPUL.NEB NEB SCH ×4 (01:17→19:45)
[2018-04-30 07:58] VITALS: BP 121/79
[2018-04-30] MEDS: BACLOFEN (10 MG) 10 MG TABLET GT SCH ×4 (08:18→20:39)
[2018-04-30] MEDS: PROSTAT (PYXIS) 30 ML UDC GT SCH ×3 (08:18→17:11)
[2018-04-30] MEDS: GABAPENTIN 300 MG CAPSULE GT SCH ×3 (08:18→17:11)
[2018-04-30] MEDS: ACIDOPHILUS/BULGARICUS 1 EACH TAB.CHEW GT SCH ×3 (08:18→17:11)
[2018-04-30] MEDS: ESCITALOPRAM OXALATE (10 MG) 10 MG TABLET GT SCH (08:18)
[2018-04-30] MEDS: ASCORBIC ACID 500 MG TABLET GT SCH ×2 (08:18→17:11)
[2018-04-30] MEDS: METHADONE HCL 10 MG TABLET GT SCH (08:18)
[2018-04-30] MEDS: MULTIVIT W/MINERALS 1 TAB TABLET GT SCH (08:18)
[2018-04-30] MEDS: CALCITRIOL 0.25 MCG CAPSULE PO SCH (08:18)
[2018-04-30] MEDS: FAMOTIDINE (20 MG) 20 MG TABLET GT SCH ×2 (08:18→20:39)
[2018-04-30] MEDS: CALCIUM CARBONATE 500 MG TAB.CHEW GT SCH ×3 (08:18→17:11)
[2018-04-30] MEDS: HYDROGEN PEROXIDE 480 ML BOTTLE TP SCH ×2 (09:00→21:12)
[2018-04-30] MEDS: NYSTATIN/TRIAMCIN 15 GM CREAM 15 GM TUBE TP SCH ×2 (09:00→21:13)
[2018-04-30] MEDS: HYDROCODONE/APAP 5/325MG 1 EACH TABLET GT SCH ×2 (09:00→20:39)
[2018-04-30] MEDS: HYDROGEL DRESSING 90 GM TUBE TP SCH ×4 (09:00→21:12)
[2018-04-30 19:48] VITALS: BP 104/65
[2018-04-30] MEDS: ZINC SULFATE 220 MG CAPSULE GT SCH (20:39)
[2018-04-30] MEDS: ENOXAPARIN SODIUM 40 MG/0.4 ML DISP.SYRIN SQ SCH (20:40)
[2018-04-30] MEDS: ATORVASTATIN 10 MG TABLET GT SCH (21:13)
[2018-04-30] MEDS: POLYETHYLENE GLYCOL 3350 17 GM POWD.PACK GT SCH (21:13)
[2018-05-01] MEDS: IPRATROPIUM NEB FS 0.5 MG/2.5 ML AMPUL.NEB NEB SCH ×4 (01:36→19:46)
[2018-05-01 08:06] VITALS: BP 106/65
[2018-05-01] MEDS: ACIDOPHILUS/BULGARICUS 1 EACH TAB.CHEW GT SCH ×3 (08:41→17:03)
[2018-05-01] MEDS: ESCITALOPRAM OXALATE (10 MG) 10 MG TABLET GT SCH (08:42)
[2018-05-01] MEDS: METHADONE HCL 10 MG TABLET GT SCH (08:42)
[2018-05-01] MEDS: FAMOTIDINE (20 MG) 20 MG TABLET GT SCH ×2 (08:42→20:38)
[2018-05-01] MEDS: BACLOFEN (10 MG) 10 MG TABLET GT SCH ×4 (08:42→20:38)
[2018-05-01] MEDS: ASCORBIC ACID 500 MG TABLET GT SCH ×2 (08:42→17:04)
[2018-05-01] MEDS: PROSTAT (PYXIS) 30 ML UDC GT SCH ×3 (08:42→17:04)
[2018-05-01] MEDS: MULTIVIT W/MINERALS 1 TAB TABLET GT SCH (08:42)
[2018-05-01] MEDS: CALCIUM CARBONATE 500 MG TAB.CHEW GT SCH ×3 (08:42→17:04)
[2018-05-01] MEDS: CALCITRIOL 0.25 MCG CAPSULE PO SCH (08:42)
[2018-05-01] MEDS: GABAPENTIN 300 MG CAPSULE GT SCH ×3 (08:42→17:04)
[2018-05-01] MEDS: HYDROCODONE/APAP 5/325MG 1 EACH TABLET GT SCH ×2 (11:17→20:38)
[2018-05-01] MEDS: NYSTATIN/TRIAMCIN 15 GM CREAM 15 GM TUBE TP SCH ×2 (11:45→21:15)
[2018-05-01] MEDS: HYDROGEN PEROXIDE 480 ML BOTTLE TP SCH ×2 (11:45→21:14)
[2018-05-01] MEDS: HYDROGEL DRESSING 90 GM TUBE TP SCH ×4 (11:45→21:14)
--- NOTE | 2018-05-01 18:42 | NUR ---
Informed Dr Rafiq Diaz that pt has a purplish blackish discoloration on the left buttock. He said he will see pt on but in the meantime he ordered to apply Mepilex dressing.
[2018-05-01 20:37] VITALS: BP 120/68
[2018-05-01] MEDS: ZINC SULFATE 220 MG CAPSULE GT SCH (20:38)
[2018-05-01] MEDS: ENOXAPARIN SODIUM 40 MG/0.4 ML DISP.SYRIN SQ SCH (20:40)
[2018-05-01] MEDS: ATORVASTATIN 10 MG TABLET GT SCH (21:15)
[2018-05-01] MEDS: POLYETHYLENE GLYCOL 3350 17 GM POWD.PACK GT SCH (21:15)
[2018-05-02] MEDS: IPRATROPIUM NEB FS 0.5 MG/2.5 ML AMPUL.NEB NEB SCH ×4 (01:17→19:55)
--- NOTE | 2018-05-02 08:41 | NUR ---
WOUND CARE CONSULT WOUND CARE RECEIVED CONSULT FOR LEFT BUTTOCK PURPLISH BLACKISH DISCOLORATION. PER NURSING STAFF, DR PRADEEP ARANGO HAS BEEN NOTIFIED AND THERE ARE CURRENT TREATMENT ORDERS. WOUND CARE WILL DEFER THE CONSULT AND TREATMENT ORDERS FOR PLASTIC SURGICAL TEAM WHO ARE CURRENTLY FOLLOWING THIS PATIENT. WILL SEE PRN.
[2018-05-02] MEDS: HYDROGEN PEROXIDE 480 ML BOTTLE TP SCH ×2 (09:00→21:18)
[2018-05-02] MEDS: HYDROGEL DRESSING 90 GM TUBE TP SCH ×4 (09:00→21:18)
[2018-05-02] MEDS: NYSTATIN/TRIAMCIN 15 GM CREAM 15 GM TUBE TP SCH ×2 (09:00→21:18)
[2018-05-02] MEDS: MULTIVIT W/MINERALS 1 TAB TABLET GT SCH (09:06)
[2018-05-02] MEDS: METHADONE HCL 10 MG TABLET GT SCH (09:06)
[2018-05-02] MEDS: ACIDOPHILUS/BULGARICUS 1 EACH TAB.CHEW GT SCH ×3 (09:06→16:40)
[2018-05-02] MEDS: FAMOTIDINE (20 MG) 20 MG TABLET GT SCH ×2 (09:06→20:34)
[2018-05-02] MEDS: ASCORBIC ACID 500 MG TABLET GT SCH ×2 (09:06→16:40)
[2018-05-02] MEDS: CALCIUM CARBONATE 500 MG TAB.CHEW GT SCH ×3 (09:06→16:40)
[2018-05-02] MEDS: BACLOFEN (10 MG) 10 MG TABLET GT SCH ×4 (09:06→20:33)
[2018-05-02] MEDS: GABAPENTIN 300 MG CAPSULE GT SCH ×3 (09:06→16:40)
[2018-05-02] MEDS: PROSTAT (PYXIS) 30 ML UDC GT SCH ×3 (09:06→16:40)
[2018-05-02] MEDS: CALCITRIOL 0.25 MCG CAPSULE PO SCH (09:06)
[2018-05-02] MEDS: HYDROCODONE/APAP 5/325MG 1 EACH TABLET GT SCH ×2 (09:06→20:33)
[2018-05-02] MEDS: ESCITALOPRAM OXALATE (10 MG) 10 MG TABLET GT SCH (09:06)
[2018-05-02] MEDS: MAGNESIUM HYDROXIDE 30 ML UDC GT PRN (16:42)
[2018-05-02 20:31] VITALS: BP 106/66
[2018-05-02] MEDS: ZINC SULFATE 220 MG CAPSULE GT SCH (20:34)
[2018-05-02] MEDS: ENOXAPARIN SODIUM 40 MG/0.4 ML DISP.SYRIN SQ SCH (20:34)
--- NOTE | 2018-05-02 20:37 | NUR ---
Pt placed on [facility] vent per MD order. Vent plugged into red outlet w mariam @ [facility]. Pt sx'd w no adverse reactions. No respiratory distress noted. Addendum: 05/02/18 at 2037 by SUNG KERN RT Amended: Links added.
[2018-05-02] MEDS: POLYETHYLENE GLYCOL 3350 17 GM POWD.PACK GT SCH (21:18)
[2018-05-02] MEDS: ATORVASTATIN 10 MG TABLET GT SCH (21:18)
[2018-05-03] MEDS: IPRATROPIUM NEB FS 0.5 MG/2.5 ML AMPUL.NEB NEB SCH ×4 (01:35→19:28)
[2018-05-03 08:23] VITALS: BP 113/69
[2018-05-03] MEDS: BACLOFEN (10 MG) 10 MG TABLET GT SCH ×4 (08:45→21:30)
[2018-05-03] MEDS: ESCITALOPRAM OXALATE (10 MG) 10 MG TABLET GT SCH (08:45)
[2018-05-03] MEDS: ACIDOPHILUS/BULGARICUS 1 EACH TAB.CHEW GT SCH ×3 (08:45→17:00)
[2018-05-03] MEDS: METHADONE HCL 10 MG TABLET GT SCH (08:46)
[2018-05-03] MEDS: ASCORBIC ACID 500 MG TABLET GT SCH ×2 (08:46→17:00)
[2018-05-03] MEDS: CALCITRIOL 0.25 MCG CAPSULE PO SCH (08:46)
[2018-05-03] MEDS: FAMOTIDINE (20 MG) 20 MG TABLET GT SCH ×2 (08:46→21:30)
[2018-05-03] MEDS: HYDROCODONE/APAP 5/325MG 1 EACH TABLET GT SCH ×2 (08:46→21:30)
[2018-05-03] MEDS: GABAPENTIN 300 MG CAPSULE GT SCH ×3 (08:46→17:00)
[2018-05-03] MEDS: CALCIUM CARBONATE 500 MG TAB.CHEW GT SCH ×3 (08:46→17:00)
[2018-05-03] MEDS: PROSTAT (PYXIS) 30 ML UDC GT SCH ×3 (08:46→17:00)
[2018-05-03] MEDS: MULTIVIT W/MINERALS 1 TAB TABLET GT SCH (08:46)
[2018-05-03] MEDS: HYDROGEL DRESSING 90 GM TUBE TP SCH ×4 (09:00→21:32)
[2018-05-03] MEDS: HYDROGEN PEROXIDE 480 ML BOTTLE TP SCH ×2 (09:00→21:33)
[2018-05-03] MEDS: NYSTATIN/TRIAMCIN 15 GM CREAM 15 GM TUBE TP SCH ×2 (09:00→21:33)
[2018-05-03 19:34] VITALS: BP 116/69
[2018-05-03] MEDS: ZINC SULFATE 220 MG CAPSULE GT SCH (21:30)
[2018-05-03] MEDS: ENOXAPARIN SODIUM 40 MG/0.4 ML DISP.SYRIN SQ SCH (21:32)
[2018-05-03] MEDS: POLYETHYLENE GLYCOL 3350 17 GM POWD.PACK GT SCH (21:33)
[2018-05-03] MEDS: ATORVASTATIN 10 MG TABLET GT SCH (21:33)
[2018-05-04] MEDS: IPRATROPIUM NEB FS 0.5 MG/2.5 ML AMPUL.NEB NEB SCH ×4 (01:09→19:37)
[2018-05-04] MEDS: HYDROCODONE/APAP 5/325MG 1 EACH TABLET GT PRN ×2 (02:00→06:35)
--- NOTE | 2018-05-04 07:48 | NUR ---
PT RECEIVED ON [facility] VENT ON THE FOLLOWING NOTED SETTINGS. NO RESP DISTRESS OR SOB NOTED AT THIS TIME. PT SX'D. BREATHING TX GIVEN, NO ADVERSE REACTIONS NOTED. SPARE TRACH AND AMBU BAG ARE AT BEDSIDE. WILL CONT TO MONITOR PT. VENT IS PLUGGED INTO RED OUTLET AND ALARMS ARE ON AND AUDIBLE. PT IS NOW PLACED ON COOL AEROSOL 5L 28% TIL 7PM. Addendum: 05/04/18 at 0749 by JC VICTORIA RT Amended: Links added.
[2018-05-04 08:00] VITALS: BP 158/90
[2018-05-04] MEDS: CALCITRIOL 0.25 MCG CAPSULE PO SCH (09:00)
[2018-05-04] MEDS: HYDROGEL DRESSING 90 GM TUBE TP SCH ×4 (09:00→21:59)
[2018-05-04] MEDS: NYSTATIN/TRIAMCIN 15 GM CREAM 15 GM TUBE TP SCH ×2 (09:00→21:59)
[2018-05-04] MEDS ORDERED: TUBERCULIN,PURIF.PROT.DERIV. 5 TU/0.1 ML VIAL ID SCH (09:00)
[2018-05-04] MEDS: HYDROGEN PEROXIDE 480 ML BOTTLE TP SCH ×2 (09:00→21:59)
[2018-05-04] MEDS: GABAPENTIN 300 MG CAPSULE GT SCH ×3 (09:26→16:34)
[2018-05-04] MEDS: METHADONE HCL 10 MG TABLET GT SCH (09:26)
[2018-05-04] MEDS: HYDROCODONE/APAP 5/325MG 1 EACH TABLET GT SCH ×2 (09:26→21:34)
[2018-05-04] MEDS: ACIDOPHILUS/BULGARICUS 1 EACH TAB.CHEW GT SCH ×3 (09:26→16:34)
[2018-05-04] MEDS: BACLOFEN (10 MG) 10 MG TABLET GT SCH ×4 (09:26→21:33)
[2018-05-04] MEDS: MULTIVIT W/MINERALS 1 TAB TABLET GT SCH (09:26)
[2018-05-04] MEDS: ASCORBIC ACID 500 MG TABLET GT SCH ×2 (09:26→16:35)
[2018-05-04] MEDS: FAMOTIDINE (20 MG) 20 MG TABLET GT SCH ×2 (09:26→21:34)
[2018-05-04] MEDS: PROSTAT (PYXIS) 30 ML UDC GT SCH ×3 (09:26→16:34)
[2018-05-04] MEDS: ESCITALOPRAM OXALATE (10 MG) 10 MG TABLET GT SCH (09:26)
[2018-05-04] MEDS: CALCIUM CARBONATE 500 MG TAB.CHEW GT SCH ×3 (09:26→16:34)
[2018-05-04 19:44] VITALS: BP 106/59
[2018-05-04] MEDS: POLYETHYLENE GLYCOL 3350 17 GM POWD.PACK GT SCH (21:34)
[2018-05-04] MEDS: ENOXAPARIN SODIUM 40 MG/0.4 ML DISP.SYRIN SQ SCH (21:34)
[2018-05-04] MEDS: ZINC SULFATE 220 MG CAPSULE GT SCH (21:34)
[2018-05-04] MEDS: ATORVASTATIN 10 MG TABLET GT SCH (21:34)
[2018-05-05] MEDS: IPRATROPIUM NEB FS 0.5 MG/2.5 ML AMPUL.NEB NEB SCH ×4 (02:15→19:29)
[2018-05-05] MEDS: METHOCARBAMOL (750MG) 750 MG TABLET GT PRN (04:24)
[2018-05-05 08:09] VITALS: BP 145/77
[2018-05-05] MEDS: ESCITALOPRAM OXALATE (10 MG) 10 MG TABLET GT SCH (08:10)
[2018-05-05] MEDS: ACIDOPHILUS/BULGARICUS 1 EACH TAB.CHEW GT SCH ×3 (08:10→17:56)
[2018-05-05] MEDS: BACLOFEN (10 MG) 10 MG TABLET GT SCH ×4 (08:10→20:55)
[2018-05-05] MEDS: FAMOTIDINE (20 MG) 20 MG TABLET GT SCH ×2 (08:11→20:55)
[2018-05-05] MEDS: CALCIUM CARBONATE 500 MG TAB.CHEW GT SCH ×3 (08:11→17:56)
[2018-05-05] MEDS: METHADONE HCL 10 MG TABLET GT SCH (08:11)
[2018-05-05] MEDS: MULTIVIT W/MINERALS 1 TAB TABLET GT SCH (08:11)
[2018-05-05] MEDS: GABAPENTIN 300 MG CAPSULE GT SCH ×3 (08:11→17:56)
[2018-05-05] MEDS: PROSTAT (PYXIS) 30 ML UDC GT SCH ×3 (08:11→17:56)
[2018-05-05] MEDS: ASCORBIC ACID 500 MG TABLET GT SCH ×2 (08:11→17:56)
[2018-05-05] MEDS: CALCITRIOL 0.25 MCG CAPSULE PO SCH (08:11)
--- NOTE | 2018-05-05 08:48 | NUR ---
Left a message to Dr. Seaman, patient coughed out brownish secretions from the trach. According to FURNACE COMBUSTION TESTER, patient ate chocolate cookies aside from the breakfast served. V/S 132/84, 64, 98.8, 16, 99%. RT was called, suctioned and lavaged trach, no further brownish secretions obtained. Resident in no acute s/s of respiratory distress. Awaiting for order from .
--- NOTE | 2018-05-05 10:50 | NUR ---
Made a follow-up call to Dr. Seaman to find out if he wants to order chest x-ray to r/o aspiration. He said he will come up to see the patient. Residen stable, not in acute respiratory distress
--- NOTE | 2018-05-05 12:00 | NUR ---
Seen and examined by Dr. Seaman, assessed patient. He said no need to do a chest X ray but monitor if patient develops fever.
[2018-05-05] MEDS: HYDROCODONE/APAP 5/325MG 1 EACH TABLET GT SCH ×2 (13:30→20:55)
[2018-05-05] MEDS: HYDROGEL DRESSING 90 GM TUBE TP SCH ×4 (14:30→20:56)
[2018-05-05] MEDS: NYSTATIN/TRIAMCIN 15 GM CREAM 15 GM TUBE TP SCH ×2 (14:30→20:56)
[2018-05-05] MEDS: HYDROGEN PEROXIDE 480 ML BOTTLE TP SCH ×2 (14:30→20:56)
--- NOTE | 2018-05-05 16:01 | NUR ---
Left a message to resident's sister in law to update her of patient's condition especially the L buttock DTI that is now open with large amount of sanguinous drainage. Open area measuring 1x0.5x3.5 with undermining. Treatment rendered. Addendum: 05/09/18 at 2009 by REZA JOSUE RN Clarification: L buttock DTI is L buttock abscess.
[2018-05-05 17:26] VITALS: BP 152/79
[2018-05-05 19:59] VITALS: BP 110/54
[2018-05-05] MEDS: ZINC SULFATE 220 MG CAPSULE GT SCH (20:55)
[2018-05-05] MEDS: ENOXAPARIN SODIUM 40 MG/0.4 ML DISP.SYRIN SQ SCH (20:56)
[2018-05-05] MEDS: POLYETHYLENE GLYCOL 3350 17 GM POWD.PACK GT SCH (22:27)
[2018-05-05] MEDS: ATORVASTATIN 10 MG TABLET GT SCH (22:27)
[2018-05-06] MEDS: IPRATROPIUM NEB FS 0.5 MG/2.5 ML AMPUL.NEB NEB SCH ×4 (01:25→19:34)
[2018-05-06 08:11] VITALS: BP 139/77
[2018-05-06] MEDS: ACIDOPHILUS/BULGARICUS 1 EACH TAB.CHEW GT SCH ×3 (09:03→17:24)
[2018-05-06] MEDS: BACLOFEN (10 MG) 10 MG TABLET GT SCH ×4 (09:04→21:06)
[2018-05-06] MEDS: ESCITALOPRAM OXALATE (10 MG) 10 MG TABLET GT SCH (09:04)
[2018-05-06] MEDS: METHADONE HCL 10 MG TABLET GT SCH (09:06)
[2018-05-06] MEDS: GABAPENTIN 300 MG CAPSULE GT SCH ×3 (09:07→17:25)
[2018-05-06] MEDS: FAMOTIDINE (20 MG) 20 MG TABLET GT SCH ×2 (09:07→21:09)
[2018-05-06] MEDS: HYDROCODONE/APAP 5/325MG 1 EACH TABLET GT SCH ×2 (09:10→21:09)
[2018-05-06] MEDS: CALCIUM CARBONATE 500 MG TAB.CHEW GT SCH ×3 (09:11→17:27)
[2018-05-06] MEDS: ASCORBIC ACID 500 MG TABLET GT SCH ×2 (09:11→17:28)
[2018-05-06] MEDS: CALCITRIOL 0.25 MCG CAPSULE PO SCH (09:11)
[2018-05-06] MEDS: HYDROGEN PEROXIDE 480 ML BOTTLE TP SCH ×2 (09:11→21:13)
[2018-05-06] MEDS: HYDROGEL DRESSING 90 GM TUBE TP SCH ×4 (09:11→21:13)
[2018-05-06] MEDS: NYSTATIN/TRIAMCIN 15 GM CREAM 15 GM TUBE TP SCH ×2 (09:12→21:14)
[2018-05-06] MEDS: PROSTAT (PYXIS) 30 ML UDC GT SCH ×3 (09:13→17:25)
[2018-05-06] MEDS: MULTIVIT W/MINERALS 1 TAB TABLET GT SCH (09:13)
[2018-05-06] MEDS: HYDROCODONE/APAP 5/325MG 1 EACH TABLET GT PRN (15:03)
[2018-05-06 20:50] VITALS: BP 129/77
[2018-05-06] MEDS: ZINC SULFATE 220 MG CAPSULE GT SCH (21:09)
[2018-05-06] MEDS: ENOXAPARIN SODIUM 40 MG/0.4 ML DISP.SYRIN SQ SCH (21:13)
[2018-05-06] MEDS: ATORVASTATIN 10 MG TABLET GT SCH (21:14)
[2018-05-06] MEDS: POLYETHYLENE GLYCOL 3350 17 GM POWD.PACK GT SCH (21:14)
[2018-05-07] MEDS: IPRATROPIUM NEB FS 0.5 MG/2.5 ML AMPUL.NEB NEB SCH ×4 (01:38→19:11)
[2018-05-07 08:11] VITALS: BP 125/85
[2018-05-07] MEDS: GABAPENTIN 300 MG CAPSULE GT SCH ×3 (09:00→17:25)
[2018-05-07] MEDS: ESCITALOPRAM OXALATE (10 MG) 10 MG TABLET GT SCH (09:00)
[2018-05-07] MEDS: CALCIUM CARBONATE 500 MG TAB.CHEW GT SCH ×3 (09:00→17:25)
[2018-05-07] MEDS: HYDROCODONE/APAP 5/325MG 1 EACH TABLET GT SCH ×2 (09:00→21:31)
[2018-05-07] MEDS: FAMOTIDINE (20 MG) 20 MG TABLET GT SCH ×2 (09:00→21:31)
[2018-05-07] MEDS: PROSTAT (PYXIS) 30 ML UDC GT SCH ×3 (09:00→17:25)
[2018-05-07] MEDS: BACLOFEN (10 MG) 10 MG TABLET GT SCH ×4 (09:00→21:29)
[2018-05-07] MEDS: METHADONE HCL 10 MG TABLET GT SCH (09:00)
[2018-05-07] MEDS: ASCORBIC ACID 500 MG TABLET GT SCH ×2 (09:00→17:25)
[2018-05-07] MEDS: MULTIVIT W/MINERALS 1 TAB TABLET GT SCH (09:00)
[2018-05-07] MEDS: ACIDOPHILUS/BULGARICUS 1 EACH TAB.CHEW GT SCH ×3 (09:00→17:25)
[2018-05-07] MEDS: CALCITRIOL 0.25 MCG CAPSULE PO SCH (09:00)
[2018-05-07] MEDS: HYDROGEN PEROXIDE 480 ML BOTTLE TP SCH ×2 (09:30→21:33)
[2018-05-07] MEDS: HYDROGEL DRESSING 90 GM TUBE TP SCH ×2 (09:30)
[2018-05-07] MEDS: NYSTATIN/TRIAMCIN 15 GM CREAM 15 GM TUBE TP SCH (09:30)
--- NOTE | 2018-05-07 09:43 | NUR ---
Late entry for 05/03/18 Pt's left buttock purplish blackish discoloration has purulent sanguinous discharge. Informed Dr Rafiq Diaz who said that he will ask Dr Bai to see the pt since he was unable to see pt today.
--- NOTE | 2018-05-07 11:28 | NUR ---
Seen by Dr Rafiq Diaz. He examined pt's left buttock purplish blackish discoloration which now has an opening and draining purulent sanguinous drainage. Dr Rafiq Diaz said it is an abscess. He ordered to pack it with Dakin's moistened gauze.
[2018-05-07] MEDS: HYDROCODONE/APAP 5/325MG 1 EACH TABLET GT PRN (17:24)
[2018-05-07 20:13] VITALS: BP 99/65
[2018-05-07] MEDS: ZINC SULFATE 220 MG CAPSULE GT SCH (21:32)
[2018-05-07] MEDS: DAKINS QUARTER STRENGTH (0.125%) 480 ML BOTTLE TOP SCH ×2 (21:32)
[2018-05-07] MEDS: ATORVASTATIN 10 MG TABLET GT SCH (21:33)
[2018-05-07] MEDS: POLYETHYLENE GLYCOL 3350 17 GM POWD.PACK GT SCH (21:33)
[2018-05-08] MEDS: IPRATROPIUM NEB FS 0.5 MG/2.5 ML AMPUL.NEB NEB SCH ×4 (01:34→19:22)
[2018-05-08 08:02] VITALS: BP 151/91
[2018-05-08] MEDS: PROSTAT (PYXIS) 30 ML UDC GT SCH ×3 (08:21→16:21)
[2018-05-08] MEDS: MULTIVIT W/MINERALS 1 TAB TABLET GT SCH (08:21)
[2018-05-08] MEDS: FAMOTIDINE (20 MG) 20 MG TABLET GT SCH ×2 (08:21→21:23)
[2018-05-08] MEDS: CALCITRIOL 0.25 MCG CAPSULE PO SCH (08:21)
[2018-05-08] MEDS: CALCIUM CARBONATE 500 MG TAB.CHEW GT SCH ×3 (08:21→16:21)
[2018-05-08] MEDS: ASCORBIC ACID 500 MG TABLET GT SCH ×2 (08:21→16:21)
[2018-05-08] MEDS: GABAPENTIN 300 MG CAPSULE GT SCH ×3 (08:22→16:21)
[2018-05-08] MEDS: ESCITALOPRAM OXALATE (10 MG) 10 MG TABLET GT SCH (08:23)
[2018-05-08] MEDS: METHADONE HCL 10 MG TABLET GT SCH (08:23)
[2018-05-08] MEDS: BACLOFEN (10 MG) 10 MG TABLET GT SCH ×4 (08:23→21:22)
[2018-05-08] MEDS: ACIDOPHILUS/BULGARICUS 1 EACH TAB.CHEW GT SCH ×3 (08:23→16:21)
--- NOTE | 2018-05-08 08:45 | NUR ---
RT Pt received trached on mechanical vent then placed on cool aerosol with noted settings. Pt is awake and alert. Vent alarms are set and audible with BVM by bedside. DIE STAMPING PRESS OPERATOR cuff pressure noted. Vent is plugged into red outlet. HHN tx given with no adverse reactions. No respiratory distress noted at this time, will continue to monitor. Addendum: 05/08/18 at 0847 by BUFFY SHERWOOD RT Amended: Links added.
[2018-05-08] MEDS: HYDROCODONE/APAP 5/325MG 1 EACH TABLET GT SCH ×2 (09:30→21:23)
[2018-05-08] MEDS: DAKINS QUARTER STRENGTH (0.125%) 480 ML BOTTLE TOP SCH ×4 (10:00→21:23)
[2018-05-08] MEDS: HYDROGEN PEROXIDE 480 ML BOTTLE TP SCH ×2 (10:00→21:23)
[2018-05-08] MEDS: HYDROCODONE/APAP 5/325MG 1 EACH TABLET GT PRN ×4 (13:30→18:34)
--- NOTE | 2018-05-08 18:41 | NUR ---
Pt's nephrostomy tube has no port for flushing. Received order to DC flushing nephrostomy tube.
[2018-05-08 20:03] VITALS: BP 113/70
[2018-05-08] MEDS: ZINC SULFATE 220 MG CAPSULE GT SCH (21:23)
[2018-05-08] MEDS: POLYETHYLENE GLYCOL 3350 17 GM POWD.PACK GT SCH (21:24)
[2018-05-08] MEDS: ATORVASTATIN 10 MG TABLET GT SCH (21:24)
[2018-05-09] MEDS: IPRATROPIUM NEB FS 0.5 MG/2.5 ML AMPUL.NEB NEB SCH ×4 (01:10→19:27)
--- NOTE | 2018-05-09 07:48 | NUR ---
RT Pt received trached on the vent with noted settings. Pt is awake and alert. Pt placed taken off vent and placed on cool aerosol per MD orders. Pt tolerating cool aerosol well, no SOB or respiratory distress noted. Addendum: 05/09/18 at 1044 by EPSERANZA HOOPER RT Amended: Links added.
[2018-05-09 07:54] VITALS: BP 144/72
[2018-05-09] MEDS: DAKINS QUARTER STRENGTH (0.125%) 480 ML BOTTLE TOP SCH ×4 (09:00→21:43)
[2018-05-09] MEDS: HYDROGEN PEROXIDE 480 ML BOTTLE TP SCH ×2 (09:00→21:43)
[2018-05-09] MEDS: BACLOFEN (10 MG) 10 MG TABLET GT SCH ×4 (09:45→21:40)
[2018-05-09] MEDS: ESCITALOPRAM OXALATE (10 MG) 10 MG TABLET GT SCH (09:45)
[2018-05-09] MEDS: ACIDOPHILUS/BULGARICUS 1 EACH TAB.CHEW GT SCH ×3 (09:45→16:24)
[2018-05-09] MEDS: METHADONE HCL 10 MG TABLET GT SCH (09:46)
[2018-05-09] MEDS: GABAPENTIN 300 MG CAPSULE GT SCH ×3 (09:46→16:24)
[2018-05-09] MEDS: CALCIUM CARBONATE 500 MG TAB.CHEW GT SCH ×3 (09:47→16:24)
[2018-05-09] MEDS: FAMOTIDINE (20 MG) 20 MG TABLET GT SCH ×2 (09:47→21:42)
[2018-05-09] MEDS: CALCITRIOL 0.25 MCG CAPSULE PO SCH (09:47)
[2018-05-09] MEDS: ASCORBIC ACID 500 MG TABLET GT SCH ×2 (09:47→16:24)
[2018-05-09] MEDS: HYDROCODONE/APAP 5/325MG 1 EACH TABLET GT SCH ×2 (09:47→21:42)
[2018-05-09] MEDS: PROSTAT (PYXIS) 30 ML UDC GT SCH ×3 (09:47→16:24)
[2018-05-09] MEDS: MULTIVIT W/MINERALS 1 TAB TABLET GT SCH (09:49)
[2018-05-09] MEDS: HYDROCODONE/APAP 5/325MG 1 EACH TABLET GT PRN (16:25)
[2018-05-09 20:07] VITALS: BP 139/98
[2018-05-09] MEDS: ZINC SULFATE 220 MG CAPSULE GT SCH (21:42)
[2018-05-09] MEDS: ATORVASTATIN 10 MG TABLET GT SCH (21:43)
[2018-05-09] MEDS: POLYETHYLENE GLYCOL 3350 17 GM POWD.PACK GT SCH (21:44)
[2018-05-10] MEDS: IPRATROPIUM NEB FS 0.5 MG/2.5 ML AMPUL.NEB NEB SCH ×4 (01:52→19:36)
--- NOTE | 2018-05-10 04:47 | NUR ---
RT Pt remains on [facility] vent t/o the night. svn given inline. Addendum: 05/10/18 at 0448 by YESICA ROACH RT Amended: Links added.
[2018-05-10 07:44] VITALS: BP 103/61
[2018-05-10] MEDS: BACLOFEN (10 MG) 10 MG TABLET GT SCH ×4 (08:41→21:21)
[2018-05-10] MEDS: ESCITALOPRAM OXALATE (10 MG) 10 MG TABLET GT SCH (08:41)
[2018-05-10] MEDS: ACIDOPHILUS/BULGARICUS 1 EACH TAB.CHEW GT SCH ×3 (08:41→16:58)
[2018-05-10] MEDS: CALCIUM CARBONATE 500 MG TAB.CHEW GT SCH ×3 (08:42→16:58)
[2018-05-10] MEDS: FAMOTIDINE (20 MG) 20 MG TABLET GT SCH ×2 (08:42→21:21)
[2018-05-10] MEDS: ASCORBIC ACID 500 MG TABLET GT SCH ×2 (08:42→16:58)
[2018-05-10] MEDS: GABAPENTIN 300 MG CAPSULE GT SCH ×3 (08:42→16:58)
[2018-05-10] MEDS: METHADONE HCL 10 MG TABLET GT SCH ×2 (08:42→09:42)
[2018-05-10] MEDS: CALCITRIOL 0.25 MCG CAPSULE PO SCH (08:42)
[2018-05-10] MEDS: MULTIVIT W/MINERALS 1 TAB TABLET GT SCH (08:42)
[2018-05-10] MEDS: PROSTAT (PYXIS) 30 ML UDC GT SCH ×3 (08:42→16:58)
[2018-05-10] MEDS: HYDROGEN PEROXIDE 480 ML BOTTLE TP SCH ×2 (09:00→21:22)
[2018-05-10] MEDS: HYDROCODONE/APAP 5/325MG 1 EACH TABLET GT SCH ×2 (09:30→21:21)
[2018-05-10] MEDS: DAKINS QUARTER STRENGTH (0.125%) 480 ML BOTTLE TOP SCH ×4 (10:00→21:22)
[2018-05-10 15:00] VITALS: BP 140/80
[2018-05-10] MEDS: ACETAMINOPHEN 650 MG/20 ML UDC- SA PATIENTS-FEVER ONLY GT PRN (15:00)
--- NOTE | 2018-05-10 15:01 | NUR ---
Informed Dr Seaman that pt has a temp of 102 F BP 137/74 HR 107 R 24. Also informed him that pt has an abscess on the left buttock which Dr Conroy is already following. Also informed him that pt's nephrostomy tube is leaking. Dr Seaman ordered to do CBC, CMP, blood culture x 2, and UA.
[2018-05-10 16:16] LABS: ALBUMIN 2.7 g/dL (3.4-5.0); BILIRUBIN,TOTAL 0.3 mg/dL (0.2-1.0); CALCIUM, SERUM 9.5 mg/dL (8.5-10.1); CREATININE 1.1 mg/dL (0.6-1.3); POTASSIUM 4.8 mmol/L (3.5-5.1); TOTAL PROTEIN, SERUM 8.3 g/dL (6.4-8.2)
[2018-05-10 16:44] LABS: BASOPHILS % (AUTO) 0.2 % (0.0-2.0); EOSINOPHILS % (AUTO) 0.1 % (0.0-6.0); HEMATOCRIT 32 % (39-51); HEMOGLOBIN 9.7 g/dL (13.5-17.5); LYMPHOCYTES # (AUTO) 0.4 /CMM (0.8-4.8); LYMPHOCYTES % (AUTO) 3.2 % (20.0-44.0); MEAN CORPUSCULAR HGB CONC 30 g/dl (31.0-36.0); MEAN CORPUSCULAR VOLUME 78 fL (80-96); MONOCYTES # (AUTO) 0.8 /CMM (0.1-1.30); NEUTROPHILS # (AUTO) 11.6 /CMM (1.8-8.9); NEUTROPHILS % (AUTO) 90.5 % (43.0-81.0); PLATELET COUNT (AUTO) 395 /CMM (150-450); WHITE BLOOD COUNT (AUTO) 12.9 K/uL (4.3-11.0)
--- NOTE | 2018-05-10 17:42 | NUR ---
Seen by Dr Seaman. He ordered Zosyn and Vancomycin IV pharmacy to dose and for CARLI Ortiz to follow up. Informed CARLI Ortiz.
--- NOTE | 2018-05-10 17:42 | NUR ---
Dr Seaman said to have Dr Rafiq Diaz do I & D on left buttock abscess. Informed Dr Diaz.
[2018-05-10 18:00] VITALS: BP 110/68
[2018-05-10 20:03] VITALS: BP 84/57
[2018-05-10] MEDS ORDERED: FEE PK DOSING 1 MIN EA MC ONE (20:24)
[2018-05-10 20:28] LABS: APPEARANCE,URINE CLOUDY (CLEAR); BILIRUBIN,URINE NEGATIVE (NEGATIVE); BLOOD, URINE 2+ Ery/uL (NEGATIVE); COLOR,URINE YELLOW (YELLOW); KETONES,URINE NEGATIVE (NEGATIVE); LEUKOCYTE ESTERASE ,URINE 2+ (NEGATIVE); NITRITE, URINE POSITIVE (NEGATIVE); PH,URINE 6.5 (5.0-8.0); PROTEIN,URINE TRACE mg/dl (NEGATIVE); UGLUCOSE NEGATIVE (NEGATIVE); UROBILINOGEN,URINE 0.2 EU/dL (0.2)
[2018-05-10 20:41] LABS: BACTERIA,URINE Many /HPF (None Seen); SQUAMOUS EPITHELIAL CELL,UR Rare /HPF (None Seen)
[2018-05-10] MEDS: MEROPENEM 500 MG in IV NS 0.9% 50 ML IV SCH (21:00)
--- NOTE | 2018-05-10 21:14 | NUR ---
PATIENT RECEIVED TRACHED ON COOL AEROSOL. PLACED PATIENT ON MECHANICAL VENTILATION PER NOC ORDER. CUFF CHECKED VIA FRAME TABLE OPERATOR HELPER. AMBU BAG/BACK UP TRACH @ BEDSIDE. VENT PLUGGED INTO RED OUTLET. TX GIVEN, NO ADVERSE REACTIONS NOTED. SX DONE, SMALL THICK WHITE YELLOW SECRETIONS NOTED. ALARMS ON AND AUDIBLE. NO DISTRESS NOTED. WILL MONITOR T/O SHIFT. Addendum: 05/10/18 at 2115 by VERNELL CHRISTINE RT Amended: Links added.
[2018-05-10] MEDS: ZINC SULFATE 220 MG CAPSULE GT SCH (21:21)
[2018-05-10] MEDS: ENOXAPARIN SODIUM 40 MG/0.4 ML DISP.SYRIN SQ SCH (21:22)
[2018-05-10] MEDS: POLYETHYLENE GLYCOL 3350 17 GM POWD.PACK GT SCH (21:22)
[2018-05-10] MEDS: ATORVASTATIN 10 MG TABLET GT SCH (21:22)
[2018-05-10] MEDS ORDERED: VANCOMYCIN 1 GM in IV D5W 250 ML IV ONE (22:00)
--- NOTE | 2018-05-10 22:00 | NUR ---
PT STARTED VANCOMYCIN ATB IV SOH PHARMACIST DOSE IT,D/T INSURANCE NOT COVERED.MERREM 500MG IV Q 8HRS ,SPOKE TO YOUNG AND WILL SEND MEDICATIONS.IV ANTIBIOTIC STARTED.WILL CONTINUE TO MONITOR.
[2018-05-11] MEDS: IPRATROPIUM NEB FS 0.5 MG/2.5 ML AMPUL.NEB NEB SCH ×4 (01:17→19:24)
[2018-05-11] MEDS: MEROPENEM 500 MG in IV NS 0.9% 50 ML IV SCH ×3 (05:00→21:00)
--- NOTE | 2018-05-11 07:14 | NUR ---
SISTER IN LAW MICHAEL ,NOTIFIED WITH PATIENT CHANGE OF CONDITION AND NEW ORDERS OF LABS TEST AND IV ANTIBIOTICS.APPRECIATIVE OF THE CALL.
[2018-05-11 07:56] LABS: CALCIUM, SERUM 9.5 mg/dL (8.5-10.1); CREATININE 0.9 mg/dL (0.6-1.3); POTASSIUM 4.5 mmol/L (3.5-5.1)
[2018-05-11 08:00] VITALS: BP 101/60
[2018-05-11] MEDS: FAMOTIDINE (20 MG) 20 MG TABLET GT SCH ×2 (09:00→21:32)
[2018-05-11] MEDS: ESCITALOPRAM OXALATE (10 MG) 10 MG TABLET GT SCH (09:00)
[2018-05-11] MEDS: ACIDOPHILUS/BULGARICUS 1 EACH TAB.CHEW GT SCH ×3 (09:00→17:00)
[2018-05-11] MEDS: HYDROCODONE/APAP 5/325MG 1 EACH TABLET GT SCH ×2 (09:00→21:32)
[2018-05-11] MEDS: METHADONE HCL 10 MG TABLET GT SCH (09:00)
[2018-05-11] MEDS: GABAPENTIN 300 MG CAPSULE GT SCH ×3 (09:00→17:00)
[2018-05-11] MEDS: PROSTAT (PYXIS) 30 ML UDC GT SCH ×3 (09:00→17:00)
[2018-05-11] MEDS: DAKINS QUARTER STRENGTH (0.125%) 480 ML BOTTLE TOP SCH ×4 (09:00→21:35)
[2018-05-11] MEDS: BACLOFEN (10 MG) 10 MG TABLET GT SCH ×4 (09:00→21:31)
[2018-05-11] MEDS: CALCIUM CARBONATE 500 MG TAB.CHEW GT SCH ×3 (09:00→17:00)
[2018-05-11] MEDS: ASCORBIC ACID 500 MG TABLET GT SCH ×2 (09:00→17:00)
[2018-05-11] MEDS: CALCITRIOL 0.25 MCG CAPSULE PO SCH (09:00)
[2018-05-11] MEDS: MULTIVIT W/MINERALS 1 TAB TABLET GT SCH (09:00)
[2018-05-11] MEDS: HYDROGEN PEROXIDE 480 ML BOTTLE TP SCH ×2 (09:00→21:35)
[2018-05-11] MEDS: VANCOMYCIN 0.75 GM in IV D5W 250 ML IV SCH ×2 (10:40→22:00)
--- NOTE | 2018-05-11 12:00 | NUR ---
Reported chest Xray result to Dr. Shanel GASPAR given. Patient continue to receive ATB Vancomycin and Merrem, no adverse reaction noted.
--- NOTE | 2018-05-11 17:05 | NUR ---
CARLI Pittman seen chest X-ray and preliminary urine culture result, NNO given.
[2018-05-11 20:14] VITALS: BP 124/78
[2018-05-11] MEDS: ZINC SULFATE 220 MG CAPSULE GT SCH (21:32)
[2018-05-11] MEDS: ENOXAPARIN SODIUM 40 MG/0.4 ML DISP.SYRIN SQ SCH (21:34)
[2018-05-11] MEDS: ATORVASTATIN 10 MG TABLET GT SCH (21:35)
[2018-05-11] MEDS: POLYETHYLENE GLYCOL 3350 17 GM POWD.PACK GT SCH (21:36)
[2018-05-12] MEDS: IPRATROPIUM NEB FS 0.5 MG/2.5 ML AMPUL.NEB NEB SCH ×4 (01:25→19:38)
[2018-05-12] MEDS: HYDROCODONE/APAP 5/325MG 1 EACH TABLET GT PRN (03:29)
[2018-05-12] MEDS: MEROPENEM 500 MG in IV NS 0.9% 50 ML IV SCH ×2 (05:00→13:00)
[2018-05-12 07:31] VITALS: BP 124/70
[2018-05-12] MEDS: ACIDOPHILUS/BULGARICUS 1 EACH TAB.CHEW GT SCH ×3 (08:06→17:00)
[2018-05-12] MEDS: BACLOFEN (10 MG) 10 MG TABLET GT SCH ×4 (08:06→20:31)
[2018-05-12] MEDS: METHADONE HCL 10 MG TABLET GT SCH (08:06)
[2018-05-12] MEDS: ESCITALOPRAM OXALATE (10 MG) 10 MG TABLET GT SCH (08:06)
[2018-05-12] MEDS: MULTIVIT W/MINERALS 1 TAB TABLET GT SCH (08:07)
[2018-05-12] MEDS: PROSTAT (PYXIS) 30 ML UDC GT SCH ×3 (08:07→17:00)
[2018-05-12] MEDS: CALCITRIOL 0.25 MCG CAPSULE PO SCH (08:07)
[2018-05-12] MEDS: FAMOTIDINE (20 MG) 20 MG TABLET GT SCH ×2 (08:07→20:31)
[2018-05-12] MEDS: GABAPENTIN 300 MG CAPSULE GT SCH ×3 (08:07→17:00)
[2018-05-12] MEDS: ASCORBIC ACID 500 MG TABLET GT SCH ×2 (08:07→17:00)
[2018-05-12] MEDS: CALCIUM CARBONATE 500 MG TAB.CHEW GT SCH ×3 (08:07→17:00)
[2018-05-12 10:20] LABS: CALCIUM, SERUM 9.4 mg/dL (8.5-10.1); CREATININE 0.9 mg/dL (0.6-1.3); POTASSIUM 3.5 mmol/L (3.5-5.1)
[2018-05-12] MEDS: HYDROCODONE/APAP 5/325MG 1 EACH TABLET GT SCH ×2 (11:00→20:31)
[2018-05-12] MEDS: VANCOMYCIN 0.75 GM in IV D5W 250 ML IV SCH (11:00)
[2018-05-12] MEDS: HYDROGEN PEROXIDE 480 ML BOTTLE TP SCH ×2 (12:00→20:37)
[2018-05-12] MEDS: DAKINS QUARTER STRENGTH (0.125%) 480 ML BOTTLE TOP SCH ×4 (12:00→20:36)
--- NOTE | 2018-05-12 13:06 | NUR ---
Left a message to CARLI Pittman regarding final urine culture result showing Klebsiella Pneumoniae. Patient currently on IV VAncomycin and Merrem.
--- NOTE | 2018-05-12 14:46 | NUR ---
Resident visited by his friend Angie, conversing with visitor throughout until she left. Patient claims he is feeling better. According to CARLI Ortiz no changes in IV ATB based on urine culture result.
[2018-05-12 20:03] VITALS: BP 119/66
[2018-05-12] MEDS: LEVOFLOXACIN (500MG) 500 MG TABLET PO SCH (20:31)
[2018-05-12] MEDS: ZINC SULFATE 220 MG CAPSULE GT SCH (20:32)
[2018-05-12] MEDS: ENOXAPARIN SODIUM 40 MG/0.4 ML DISP.SYRIN SQ SCH (20:36)
[2018-05-12] MEDS: ATORVASTATIN 10 MG TABLET GT SCH (22:28)
[2018-05-12] MEDS: POLYETHYLENE GLYCOL 3350 17 GM POWD.PACK GT SCH (22:28)
[2018-05-13] MEDS: IPRATROPIUM NEB FS 0.5 MG/2.5 ML AMPUL.NEB NEB SCH ×4 (01:32→18:49)
[2018-05-13] MEDS: HYDROCODONE/APAP 5/325MG 1 EACH TABLET GT PRN (04:57)
[2018-05-13 06:36] LABS: CREATININE 0.8 mg/dL (0.6-1.3); POTASSIUM 4.2 mmol/L (3.5-5.1)
[2018-05-13 07:41] VITALS: BP 139/83
[2018-05-13] MEDS: DAKINS QUARTER STRENGTH (0.125%) 480 ML BOTTLE TOP SCH ×4 (09:00→21:34)
[2018-05-13] MEDS: HYDROGEN PEROXIDE 480 ML BOTTLE TP SCH ×2 (09:00→21:34)
[2018-05-13] MEDS: ESCITALOPRAM OXALATE (10 MG) 10 MG TABLET GT SCH (09:34)
[2018-05-13] MEDS: ACIDOPHILUS/BULGARICUS 1 EACH TAB.CHEW GT SCH ×3 (09:34→17:47)
[2018-05-13] MEDS: GABAPENTIN 300 MG CAPSULE GT SCH ×3 (09:34→17:47)
[2018-05-13] MEDS: METHADONE HCL 10 MG TABLET GT SCH (09:34)
[2018-05-13] MEDS: BACLOFEN (10 MG) 10 MG TABLET GT SCH ×4 (09:34→21:31)
[2018-05-13] MEDS: PROSTAT (PYXIS) 30 ML UDC GT SCH ×3 (09:35→17:47)
[2018-05-13] MEDS: FAMOTIDINE (20 MG) 20 MG TABLET GT SCH ×2 (09:35→21:33)
[2018-05-13] MEDS: HYDROCODONE/APAP 5/325MG 1 EACH TABLET GT SCH ×2 (09:35→21:33)
[2018-05-13] MEDS: MULTIVIT W/MINERALS 1 TAB TABLET GT SCH (09:35)
[2018-05-13] MEDS: ASCORBIC ACID 500 MG TABLET GT SCH ×2 (09:35→17:47)
[2018-05-13] MEDS: CALCIUM CARBONATE 500 MG TAB.CHEW GT SCH ×3 (09:35→17:47)
[2018-05-13] MEDS: CALCITRIOL 0.25 MCG CAPSULE PO SCH (09:36)
[2018-05-13] MEDS: LEVOFLOXACIN (500MG) 500 MG TABLET PO SCH (20:00)
[2018-05-13] MEDS: ZINC SULFATE 220 MG CAPSULE GT SCH (21:33)
[2018-05-13] MEDS: ENOXAPARIN SODIUM 40 MG/0.4 ML DISP.SYRIN SQ SCH (21:34)
[2018-05-13] MEDS: ATORVASTATIN 10 MG TABLET GT SCH (21:35)
[2018-05-13] MEDS: POLYETHYLENE GLYCOL 3350 17 GM POWD.PACK GT SCH (21:35)
[2018-05-14] MEDS: IPRATROPIUM NEB FS 0.5 MG/2.5 ML AMPUL.NEB NEB SCH ×4 (00:33→19:13)
[2018-05-14] MEDS: HYDROCODONE/APAP 5/325MG 1 EACH TABLET GT PRN (00:39)
[2018-05-14 07:42] VITALS: BP 135/77
[2018-05-14] MEDS: FAMOTIDINE (20 MG) 20 MG TABLET GT SCH ×2 (08:58→21:51)
[2018-05-14] MEDS: BACLOFEN (10 MG) 10 MG TABLET GT SCH ×4 (08:58→21:49)
[2018-05-14] MEDS: ESCITALOPRAM OXALATE (10 MG) 10 MG TABLET GT SCH (08:58)
[2018-05-14] MEDS: PROSTAT (PYXIS) 30 ML UDC GT SCH ×3 (08:58→16:06)
[2018-05-14] MEDS: ACIDOPHILUS/BULGARICUS 1 EACH TAB.CHEW GT SCH ×3 (08:58→16:06)
[2018-05-14] MEDS: MULTIVIT W/MINERALS 1 TAB TABLET GT SCH (08:58)
[2018-05-14] MEDS: GABAPENTIN 300 MG CAPSULE GT SCH ×3 (08:58→16:06)
[2018-05-14] MEDS: CALCIUM CARBONATE 500 MG TAB.CHEW GT SCH ×3 (08:58→16:06)
[2018-05-14] MEDS: METHADONE HCL 10 MG TABLET GT SCH (08:58)
[2018-05-14] MEDS: ASCORBIC ACID 500 MG TABLET GT SCH ×2 (08:59→16:06)
[2018-05-14] MEDS: CALCITRIOL 0.25 MCG CAPSULE PO SCH (08:59)
[2018-05-14] MEDS: HYDROGEN PEROXIDE 480 ML BOTTLE TP SCH ×2 (09:00→21:53)
[2018-05-14] MEDS: DAKINS QUARTER STRENGTH (0.125%) 480 ML BOTTLE TOP SCH ×4 (09:00→21:53)
[2018-05-14] MEDS: HYDROCODONE/APAP 5/325MG 1 EACH TABLET GT SCH ×2 (09:30→21:51)
--- NOTE | 2018-05-14 13:00 | NUR ---
Seen and examined by CARLI Hoffman, no new order given.
--- NOTE | 2018-05-14 14:44 | NUR ---
SW communicated patient's sister in law about IDT mtg on 05/18/2018 and dentist domenico on 05/21, sister in law will not be able to attend it.
[2018-05-14 16:14] LABS: BASOPHILS # (AUTO) 0.1 /CMM (0.0-0.2); BASOPHILS % (AUTO) 1.1 % (0.0-2.0); EOSINOPHILS % (AUTO) 4.3 % (0.0-6.0); HEMATOCRIT 26 % (39-51); HEMOGLOBIN 7.8 g/dL (13.5-17.5); LYMPHOCYTES % (AUTO) 24.4 % (20.0-44.0); MEAN CORPUSCULAR HGB CONC 30 g/dl (31.0-36.0); MEAN CORPUSCULAR VOLUME 79 fL (80-96); MONOCYTES # (AUTO) 0.9 /CMM (0.1-1.30); MONOCYTES % (AUTO) 10.6 % (2.0-12.0); NEUTROPHILS % (AUTO) 59.6 % (43.0-81.0); PLATELET COUNT (AUTO) 348 /CMM (150-450); RED BLOOD CELL COUNT(AUTO) 3.25 MIL/uL (4.5-6.0); WHITE BLOOD COUNT (AUTO) 8.3 K/uL (4.3-11.0)
[2018-05-14 16:32] LABS: CALCIUM, SERUM 8.5 mg/dL (8.5-10.1); CREATININE 0.8 mg/dL (0.6-1.3); POTASSIUM 4.2 mmol/L (3.5-5.1)
--- NOTE | 2018-05-14 19:14 | NUR ---
PATIENT RECEIVED TRACHED ON COOL AEROSOL. PLACED PATIENT ON MECHANICAL VENTILATION PER NOC ORDER. CUFF CHECKED VIA TOY MAKER. AMBU BAG/BACK UP TRACH @ BEDSIDE. VENT PLUGGED INTO RED OUTLET. TX GIVEN, NO ADVERSE REACTIONS NOTED. SX DONE, SMALL THICK WHITE YELLOW SECRETIONS NOTED. ALARMS ON AND AUDIBLE. NO DISTRESS NOTED. WILL MONITOR T/O SHIFT. Addendum: 05/14/18 at 1914 by JOSÉ LUIS HARMAN RT Amended: Links added.
[2018-05-14] MEDS: LEVOFLOXACIN (500MG) 500 MG TABLET PO SCH (20:00)
[2018-05-14 20:01] VITALS: BP 115/77
[2018-05-14] MEDS: ZINC SULFATE 220 MG CAPSULE GT SCH (21:51)
[2018-05-14] MEDS: ENOXAPARIN SODIUM 40 MG/0.4 ML DISP.SYRIN SQ SCH (21:52)
[2018-05-14] MEDS: POLYETHYLENE GLYCOL 3350 17 GM POWD.PACK GT SCH (21:53)
[2018-05-14] MEDS: ATORVASTATIN 10 MG TABLET GT SCH (21:53)
[2018-05-15] MEDS: IPRATROPIUM NEB FS 0.5 MG/2.5 ML AMPUL.NEB NEB SCH ×4 (01:11→19:25)
[2018-05-15 07:39] LABS: CALCIUM, SERUM 9.1 mg/dL (8.5-10.1); CREATININE 0.7 mg/dL (0.6-1.3); POTASSIUM 5.3 mmol/L (3.5-5.1)
[2018-05-15 07:42] VITALS: BP 141/90
[2018-05-15] MEDS: HYDROGEN PEROXIDE 480 ML BOTTLE TP SCH ×2 (09:00→21:37)
[2018-05-15] MEDS: DAKINS QUARTER STRENGTH (0.125%) 480 ML BOTTLE TOP SCH ×4 (09:00→21:37)
[2018-05-15] MEDS: BACLOFEN (10 MG) 10 MG TABLET GT SCH ×4 (09:28→21:34)
[2018-05-15] MEDS: METHADONE HCL 10 MG TABLET GT SCH (09:28)
[2018-05-15] MEDS: ESCITALOPRAM OXALATE (10 MG) 10 MG TABLET GT SCH (09:28)
[2018-05-15] MEDS: GABAPENTIN 300 MG CAPSULE GT SCH ×3 (09:28→17:00)
[2018-05-15] MEDS: ACIDOPHILUS/BULGARICUS 1 EACH TAB.CHEW GT SCH ×3 (09:28→17:00)
[2018-05-15] MEDS: CALCITRIOL 0.25 MCG CAPSULE PO SCH (09:29)
[2018-05-15] MEDS: CALCIUM CARBONATE 500 MG TAB.CHEW GT SCH ×3 (09:29→17:00)
[2018-05-15] MEDS: FAMOTIDINE (20 MG) 20 MG TABLET GT SCH ×2 (09:29→21:36)
[2018-05-15] MEDS: PROSTAT (PYXIS) 30 ML UDC GT SCH ×3 (09:29→17:00)
[2018-05-15] MEDS: MULTIVIT W/MINERALS 1 TAB TABLET GT SCH (09:29)
[2018-05-15] MEDS: ASCORBIC ACID 500 MG TABLET GT SCH ×2 (09:29→17:00)
[2018-05-15] MEDS: HYDROCODONE/APAP 5/325MG 1 EACH TABLET GT SCH ×2 (09:30→21:36)
--- NOTE | 2018-05-15 09:40 | NUR ---
Seen by Dr Ugarte. Notified him that potassium level 5.3. He ordered to give Kayexalate 30 gm GT x 1 for hyperkalemia.
[2018-05-15] MEDS ORDERED: SODIUM POLYSTYRENE SULFONATE 15 G/60 ML BOTTLE GT ONE (11:30)
--- NOTE | 2018-05-15 19:28 | NUR ---
PATIENT RECEIVED TRACHED ON COOL AEROSOL. PLACED PATIENT ON MECHANICAL VENTILATION PER NOC ORDER. CUFF CHECKED VIA PROCEDURES ANALYST. AMBU BAG/BACK UP TRACH @ BEDSIDE. VENT PLUGGED INTO RED OUTLET. TX GIVEN, NO ADVERSE REACTIONS NOTED. SX DONE, SMALL THICK WHITE YELLOW SECRETIONS NOTED. ALARMS ON AND AUDIBLE. NO DISTRESS NOTED. WILL MONITOR T/O SHIFT. Addendum: 05/15/18 at 1929 by JOSÉ LUIS HARMAN RT Amended: Links added.
[2018-05-15] MEDS: LEVOFLOXACIN (500MG) 500 MG TABLET PO SCH (20:00)
[2018-05-15 20:34] VITALS: BP 113/65
[2018-05-15] MEDS: ZINC SULFATE 220 MG CAPSULE GT SCH (21:36)
[2018-05-15] MEDS: ATORVASTATIN 10 MG TABLET GT SCH (21:37)
[2018-05-15] MEDS: ENOXAPARIN SODIUM 40 MG/0.4 ML DISP.SYRIN SQ SCH (21:37)
[2018-05-15] MEDS: POLYETHYLENE GLYCOL 3350 17 GM POWD.PACK GT SCH (21:38)
[2018-05-16] MEDS: IPRATROPIUM NEB FS 0.5 MG/2.5 ML AMPUL.NEB NEB SCH ×4 (02:08→19:36)
[2018-05-16 07:38] VITALS: BP 158/98
[2018-05-16 07:46] LABS: CALCIUM, SERUM 8.9 mg/dL (8.5-10.1); CREATININE 0.7 mg/dL (0.6-1.3); POTASSIUM 4.2 mmol/L (3.5-5.1)
[2018-05-16] MEDS: ACIDOPHILUS/BULGARICUS 1 EACH TAB.CHEW GT SCH ×3 (09:21→17:00)
[2018-05-16] MEDS: ESCITALOPRAM OXALATE (10 MG) 10 MG TABLET GT SCH (09:21)
[2018-05-16] MEDS: GABAPENTIN 300 MG CAPSULE GT SCH ×3 (09:22→17:00)
[2018-05-16] MEDS: METHADONE HCL 10 MG TABLET GT SCH (09:22)
[2018-05-16] MEDS: FAMOTIDINE (20 MG) 20 MG TABLET GT SCH ×2 (09:22→20:55)
[2018-05-16] MEDS: BACLOFEN (10 MG) 10 MG TABLET GT SCH ×4 (09:22→20:53)
[2018-05-16] MEDS: PROSTAT (PYXIS) 30 ML UDC GT SCH ×3 (09:22→17:00)
[2018-05-16] MEDS: ASCORBIC ACID 500 MG TABLET GT SCH ×2 (09:23→17:00)
[2018-05-16] MEDS: MULTIVIT W/MINERALS 1 TAB TABLET GT SCH (09:23)
[2018-05-16] MEDS: CALCITRIOL 0.25 MCG CAPSULE PO SCH (09:23)
[2018-05-16] MEDS: CALCIUM CARBONATE 500 MG TAB.CHEW GT SCH ×3 (09:23→17:00)
[2018-05-16] MEDS: HYDROCODONE/APAP 5/325MG 1 EACH TABLET GT SCH ×2 (12:00→20:55)
[2018-05-16] MEDS: DAKINS QUARTER STRENGTH (0.125%) 480 ML BOTTLE TOP SCH ×4 (13:00→21:00)
[2018-05-16] MEDS: HYDROGEN PEROXIDE 480 ML BOTTLE TP SCH ×2 (13:00→21:00)
[2018-05-16 20:03] VITALS: BP 120/74
[2018-05-16] MEDS: LEVOFLOXACIN (500MG) 500 MG TABLET PO SCH (20:30)
--- NOTE | 2018-05-16 20:40 | NUR ---
PT RCVD TRACH'D ON COOL AEROSOL. PLACED PT ON MECHANICAL PER MD ORDER WITH CHARTED SETTINGS. TX GIVEN AND NO ADVERSE REACTION NOTED. SX DONE. PT TRACH PATENT AND SECURE. VENT PLUGGED INTO RED OUTLET. ALARMS ARE SET AND AUDIBLE. AMBU BAG AT BEDSIDE. WILL CONTINUE TO MONITOR. Addendum: 05/16/18 at 2039 by LUCIANA TRIMBLE RT Amended: Links added.
[2018-05-16] MEDS: ZINC SULFATE 220 MG CAPSULE GT SCH (20:55)
[2018-05-16] MEDS: ENOXAPARIN SODIUM 40 MG/0.4 ML DISP.SYRIN SQ SCH (20:56)
[2018-05-16] MEDS: POLYETHYLENE GLYCOL 3350 17 GM POWD.PACK GT SCH (22:31)
[2018-05-16] MEDS: ATORVASTATIN 10 MG TABLET GT SCH (22:31)
[2018-05-16] MEDS: METHOCARBAMOL (750MG) 750 MG TABLET GT PRN (23:27)
[2018-05-17] MEDS: IPRATROPIUM NEB FS 0.5 MG/2.5 ML AMPUL.NEB NEB SCH ×4 (01:38→19:42)
[2018-05-17 08:03] VITALS: BP 118/72
--- NOTE | 2018-05-17 08:43 | NUR ---
RT Pt received trached on the vent with noted settings. Pt is awake and alert. Pt placed taken off vent and placed on cool aerosol per MD orders. hnn tx given without adverse reaction. Pt tolerating cool aerosol well, no SOB or respiratory distress noted at this time. Addendum: 05/17/18 at 0844 by BUFFY SHERWOOD RT Amended: Links added.
[2018-05-17] MEDS: ACIDOPHILUS/BULGARICUS 1 EACH TAB.CHEW GT SCH ×3 (09:18→17:45)
[2018-05-17] MEDS: ASCORBIC ACID 500 MG TABLET GT SCH ×2 (09:18→17:46)
[2018-05-17] MEDS: CALCITRIOL 0.25 MCG CAPSULE PO SCH (09:18)
[2018-05-17] MEDS: HYDROCODONE/APAP 5/325MG 1 EACH TABLET GT SCH ×2 (09:18→21:35)
[2018-05-17] MEDS: BACLOFEN (10 MG) 10 MG TABLET GT SCH ×4 (09:18→21:34)
[2018-05-17] MEDS: FAMOTIDINE (20 MG) 20 MG TABLET GT SCH ×2 (09:18→21:35)
[2018-05-17] MEDS: MULTIVIT W/MINERALS 1 TAB TABLET GT SCH (09:18)
[2018-05-17] MEDS: METHADONE HCL 10 MG TABLET GT SCH (09:18)
[2018-05-17] MEDS: GABAPENTIN 300 MG CAPSULE GT SCH ×3 (09:18→17:46)
[2018-05-17] MEDS: PROSTAT (PYXIS) 30 ML UDC GT SCH ×3 (09:18→17:46)
[2018-05-17] MEDS: ESCITALOPRAM OXALATE (10 MG) 10 MG TABLET GT SCH (09:18)
[2018-05-17] MEDS: CALCIUM CARBONATE 500 MG TAB.CHEW GT SCH ×3 (09:18→17:46)
[2018-05-17] MEDS: DAKINS QUARTER STRENGTH (0.125%) 480 ML BOTTLE TOP SCH ×4 (09:56→21:36)
[2018-05-17] MEDS: HYDROGEN PEROXIDE 480 ML BOTTLE TP SCH ×2 (09:57→21:36)
--- NOTE | 2018-05-17 18:34 | NUR ---
Pt's nephrostomy tube now has a stopcock. Received order to flush nephrostomy tube with 10 mL NS daily to prevent clogging.
[2018-05-17] MEDS: MAGNESIUM HYDROXIDE 30 ML UDC GT PRN (19:24)
--- NOTE | 2018-05-17 19:44 | NUR ---
RT NOTE PT RECEIVED TRACH'D ON COOL AEROSOL. PLACED PT ON MECHANICAL PER MD ORDERED SETTINGS. TX GIVEN AND NO ADVERSE REACTION NOTED. PT TRACH PATENT AND SECURE. VENT PLUGGED INTO RED OUTLET. ALARMS ARE SET AND AUDIBLE. AMBU BAG AT BEDSIDE. WILL CONTINUE TO MONITOR. Addendum: 05/17/18 at 2050 by DEBBY LANDA RT Amended: Links added.
[2018-05-17 19:57] VITALS: BP 113/60
[2018-05-17] MEDS: LEVOFLOXACIN (500MG) 500 MG TABLET PO SCH (20:00)
[2018-05-17] MEDS: ZINC SULFATE 220 MG CAPSULE GT SCH (21:35)
[2018-05-17] MEDS: ENOXAPARIN SODIUM 40 MG/0.4 ML DISP.SYRIN SQ SCH (21:36)
[2018-05-17] MEDS: ATORVASTATIN 10 MG TABLET GT SCH (21:37)
[2018-05-17] MEDS: POLYETHYLENE GLYCOL 3350 17 GM POWD.PACK GT SCH (21:37)
[2018-05-18] MEDS: HYDROCODONE/APAP 5/325MG 1 EACH TABLET GT PRN (01:29)
[2018-05-18] MEDS: IPRATROPIUM NEB FS 0.5 MG/2.5 ML AMPUL.NEB NEB SCH ×4 (01:35→19:46)
[2018-05-18 08:07] VITALS: BP 110/75
[2018-05-18] MEDS: CALCITRIOL 0.25 MCG CAPSULE PO SCH (09:00)
[2018-05-18] MEDS: PROSTAT (PYXIS) 30 ML UDC GT SCH ×3 (09:00→17:20)
[2018-05-18] MEDS: CALCIUM CARBONATE 500 MG TAB.CHEW GT SCH ×3 (09:00→17:20)
[2018-05-18] MEDS: ACIDOPHILUS/BULGARICUS 1 EACH TAB.CHEW GT SCH ×3 (09:00→17:20)
[2018-05-18] MEDS: MULTIVIT W/MINERALS 1 TAB TABLET GT SCH (09:00)
[2018-05-18] MEDS: BACLOFEN (10 MG) 10 MG TABLET GT SCH ×4 (09:00→20:27)
[2018-05-18] MEDS: ESCITALOPRAM OXALATE (10 MG) 10 MG TABLET GT SCH (09:00)
[2018-05-18] MEDS: GABAPENTIN 300 MG CAPSULE GT SCH ×3 (09:00→17:20)
[2018-05-18] MEDS: FAMOTIDINE (20 MG) 20 MG TABLET GT SCH ×2 (09:00→20:27)
[2018-05-18] MEDS: ASCORBIC ACID 500 MG TABLET GT SCH ×2 (09:00→17:20)
--- NOTE | 2018-05-18 09:01 | NUR ---
Pt. called RAVI in his room and told her one of his teeth ( upper left) was broken. RAVI confirmed pt has a dentist appoint with Dr. Vaca on May 21. RAVI called Dr. Vaca's office and requested that he examine pt once he comes on 05/21. Jaylan ( fundraising assistant) informed RAVI that Dr. Vaca may not be able to extract the tooth in this facility, and pt may need to be transported to Dr. Vaca's office as had happened before.
[2018-05-18] MEDS: METHADONE HCL 10 MG TABLET GT SCH (10:00)
[2018-05-18] MEDS: HYDROCODONE/APAP 5/325MG 1 EACH TABLET GT SCH ×2 (10:00→21:20)
[2018-05-18] MEDS: DAKINS QUARTER STRENGTH (0.125%) 480 ML BOTTLE TOP SCH ×4 (10:30→22:05)
[2018-05-18] MEDS: HYDROGEN PEROXIDE 480 ML BOTTLE TP SCH ×2 (10:30→22:05)
--- NOTE | 2018-05-18 14:26 | NUR ---
INTERDISCIPLINARY PLAN OF CARE CONFERENCE was held today. Resident's sister in law could not attend it. Dr. Ugarte and the interdisciplinary team discussed the current plan of care in detail. Current orders as well as treatments and medications were reviewed. No new orders. CARLI Machado seen wound photos and asked to evaluate treatment of excoriated jakub wound in the buttocks area , order given to use iodosorb to periwound in the buttocks/sacral area.
[2018-05-18 20:01] VITALS: BP 101/58
[2018-05-18] MEDS: ZINC SULFATE 220 MG CAPSULE GT SCH (20:27)
[2018-05-18] MEDS: LEVOFLOXACIN (500MG) 500 MG TABLET PO SCH (20:27)
[2018-05-18] MEDS: ENOXAPARIN SODIUM 40 MG/0.4 ML DISP.SYRIN SQ SCH (20:59)
[2018-05-18] MEDS: POLYETHYLENE GLYCOL 3350 17 GM POWD.PACK GT SCH (21:21)
[2018-05-18] MEDS: ATORVASTATIN 10 MG TABLET GT SCH (21:21)
[2018-05-18] MEDS: CADEXOMER IODINE 40 GM TUBE TP SCH (22:05)
[2018-05-19] MEDS: IPRATROPIUM NEB FS 0.5 MG/2.5 ML AMPUL.NEB NEB SCH ×4 (00:42→19:14)
[2018-05-19 07:30] VITALS: BP 116/79
--- NOTE | 2018-05-19 08:18 | NUR ---
Rt note: Patient placed on cool aerosol per MD order. Patient tolerating well. New trach and ambu bag at [facility].
[2018-05-19] MEDS: ASCORBIC ACID 500 MG TABLET GT SCH ×2 (08:58→17:59)
[2018-05-19] MEDS: ACIDOPHILUS/BULGARICUS 1 EACH TAB.CHEW GT SCH ×3 (08:58→17:58)
[2018-05-19] MEDS: ESCITALOPRAM OXALATE (10 MG) 10 MG TABLET GT SCH (08:58)
[2018-05-19] MEDS: MULTIVIT W/MINERALS 1 TAB TABLET GT SCH (08:58)
[2018-05-19] MEDS: GABAPENTIN 300 MG CAPSULE GT SCH ×3 (08:58→17:58)
[2018-05-19] MEDS: BACLOFEN (10 MG) 10 MG TABLET GT SCH ×4 (08:58→21:00)
[2018-05-19] MEDS: HYDROCODONE/APAP 5/325MG 1 EACH TABLET GT SCH ×2 (08:58→21:00)
[2018-05-19] MEDS: PROSTAT (PYXIS) 30 ML UDC GT SCH ×3 (08:58→17:58)
[2018-05-19] MEDS: FAMOTIDINE (20 MG) 20 MG TABLET GT SCH ×2 (08:58→21:00)
[2018-05-19] MEDS: CALCIUM CARBONATE 500 MG TAB.CHEW GT SCH ×3 (08:58→17:58)
[2018-05-19] MEDS: METHADONE HCL 10 MG TABLET GT SCH (08:58)
[2018-05-19] MEDS: DAKINS QUARTER STRENGTH (0.125%) 480 ML BOTTLE TOP SCH ×4 (09:53→21:00)
[2018-05-19] MEDS: CADEXOMER IODINE 40 GM TUBE TP SCH ×3 (09:53→21:00)
[2018-05-19] MEDS: HYDROGEN PEROXIDE 480 ML BOTTLE TP SCH ×2 (09:53→21:00)
[2018-05-19 19:56] VITALS: BP 127/77
[2018-05-19] MEDS: ZINC SULFATE 220 MG CAPSULE GT SCH (21:00)
[2018-05-19] MEDS: ENOXAPARIN SODIUM 40 MG/0.4 ML DISP.SYRIN SQ SCH (21:00)
[2018-05-19] MEDS: POLYETHYLENE GLYCOL 3350 17 GM POWD.PACK GT SCH (22:00)
[2018-05-19] MEDS: ATORVASTATIN 10 MG TABLET GT SCH (22:00)
[2018-05-20] MEDS: IPRATROPIUM NEB FS 0.5 MG/2.5 ML AMPUL.NEB NEB SCH ×4 (00:31→19:31)
[2018-05-20] MEDS: METHOCARBAMOL (750MG) 750 MG TABLET GT PRN (04:07)
[2018-05-20] MEDS: MAGNESIUM HYDROXIDE 30 ML UDC GT PRN (07:10)
[2018-05-20 07:23] VITALS: BP 136/88
[2018-05-20] MEDS: ACIDOPHILUS/BULGARICUS 1 EACH TAB.CHEW GT SCH ×3 (09:12→17:08)
[2018-05-20] MEDS: CALCIUM CARBONATE 500 MG TAB.CHEW GT SCH ×3 (09:13→17:08)
[2018-05-20] MEDS: ASCORBIC ACID 500 MG TABLET GT SCH ×2 (09:13→17:08)
[2018-05-20] MEDS: GABAPENTIN 300 MG CAPSULE GT SCH ×3 (09:13→17:08)
[2018-05-20] MEDS: MULTIVIT W/MINERALS 1 TAB TABLET GT SCH (09:13)
[2018-05-20] MEDS: BACLOFEN (10 MG) 10 MG TABLET GT SCH ×4 (09:13→21:22)
[2018-05-20] MEDS: PROSTAT (PYXIS) 30 ML UDC GT SCH ×3 (09:13→17:08)
[2018-05-20] MEDS: ESCITALOPRAM OXALATE (10 MG) 10 MG TABLET GT SCH (09:13)
[2018-05-20] MEDS: FAMOTIDINE (20 MG) 20 MG TABLET GT SCH ×2 (09:13→21:23)
[2018-05-20] MEDS: METHADONE HCL 10 MG TABLET GT SCH (09:13)
[2018-05-20] MEDS: DAKINS QUARTER STRENGTH (0.125%) 480 ML BOTTLE TOP SCH ×4 (09:56→21:24)
[2018-05-20] MEDS: HYDROCODONE/APAP 5/325MG 1 EACH TABLET GT SCH ×2 (09:56→21:23)
[2018-05-20] MEDS: HYDROGEN PEROXIDE 480 ML BOTTLE TP SCH ×2 (09:57→21:24)
[2018-05-20] MEDS: CADEXOMER IODINE 40 GM TUBE TP SCH ×3 (09:58→21:25)
[2018-05-20 19:51] VITALS: BP 104/66
[2018-05-20] MEDS: ENOXAPARIN SODIUM 40 MG/0.4 ML DISP.SYRIN SQ SCH (21:24)
[2018-05-20] MEDS: ZINC SULFATE 220 MG CAPSULE GT SCH (21:24)
[2018-05-20] MEDS: POLYETHYLENE GLYCOL 3350 17 GM POWD.PACK GT SCH (21:25)
[2018-05-20] MEDS: ATORVASTATIN 10 MG TABLET GT SCH (21:25)
[2018-05-21] MEDS: IPRATROPIUM NEB FS 0.5 MG/2.5 ML AMPUL.NEB NEB SCH ×4 (01:19→19:26)
[2018-05-21 07:50] VITALS: BP 148/77
[2018-05-21] MEDS: ACIDOPHILUS/BULGARICUS 1 EACH TAB.CHEW GT SCH ×3 (08:17→17:57)
[2018-05-21] MEDS: GABAPENTIN 300 MG CAPSULE GT SCH ×3 (08:17→17:57)
[2018-05-21] MEDS: BACLOFEN (10 MG) 10 MG TABLET GT SCH ×4 (08:17→21:04)
[2018-05-21] MEDS: FAMOTIDINE (20 MG) 20 MG TABLET GT SCH ×2 (08:17→21:05)
[2018-05-21] MEDS: ESCITALOPRAM OXALATE (10 MG) 10 MG TABLET GT SCH (08:17)
[2018-05-21] MEDS: METHADONE HCL 10 MG TABLET GT SCH (08:17)
[2018-05-21] MEDS: CALCIUM CARBONATE 500 MG TAB.CHEW GT SCH ×3 (08:18→17:57)
[2018-05-21] MEDS: ASCORBIC ACID 500 MG TABLET GT SCH ×2 (08:18→17:57)
[2018-05-21] MEDS: MULTIVIT W/MINERALS 1 TAB TABLET GT SCH (08:18)
[2018-05-21] MEDS: PROSTAT (PYXIS) 30 ML UDC GT SCH ×3 (08:18→17:57)
[2018-05-21] MEDS: HYDROCODONE/APAP 5/325MG 1 EACH TABLET GT SCH ×2 (13:00→21:05)
--- NOTE | 2018-05-21 13:39 | NUR ---
Pt was seeing today by Dr. Vaca, who informed SW pt has a cavity. will discuss with the nurses the possibility to take pat to his office, if not then he will return for a cleaning.
[2018-05-21] MEDS: CADEXOMER IODINE 40 GM TUBE TP SCH ×3 (14:00→21:06)
[2018-05-21] MEDS: HYDROGEN PEROXIDE 480 ML BOTTLE TP SCH ×2 (14:00→21:06)
[2018-05-21] MEDS: DAKINS QUARTER STRENGTH (0.125%) 480 ML BOTTLE TOP SCH ×4 (14:00→21:06)
[2018-05-21 19:52] VITALS: BP 133/76
[2018-05-21] MEDS: ZINC SULFATE 220 MG CAPSULE GT SCH (21:05)
[2018-05-21] MEDS: POLYETHYLENE GLYCOL 3350 17 GM POWD.PACK GT SCH (21:06)
[2018-05-21] MEDS: ENOXAPARIN SODIUM 40 MG/0.4 ML DISP.SYRIN SQ SCH (21:06)
[2018-05-21] MEDS: ATORVASTATIN 10 MG TABLET GT SCH (21:06)
--- NOTE | 2018-05-21 22:58 | NUR ---
PT RCVD NENA'D ON COOL AEROSOL. PLACED PT ON MECHANICAL PER MD ORDER WITH CHARTED SETTINGS. TX GIVEN AND NO ADVERSE REACTION NOTED. SX DONE. PT TRACH PATENT AND SECURE. VENT PLUGGED INTO RED OUTLET. ALARMS ARE SET AND AUDIBLE. AMBU BAG AT BEDSIDE. WILL CONTINUE TO MONITOR. Addendum: 05/21/18 at 2258 by JOSÉ LUIS HARMAN RT Amended: Links added.
[2018-05-22] MEDS: IPRATROPIUM NEB FS 0.5 MG/2.5 ML AMPUL.NEB NEB SCH ×4 (01:10→19:27)
[2018-05-22] MEDS: ESCITALOPRAM OXALATE (10 MG) 10 MG TABLET GT SCH (09:04)
[2018-05-22] MEDS: ASCORBIC ACID 500 MG TABLET GT SCH ×2 (09:04→17:26)
[2018-05-22] MEDS: PROSTAT (PYXIS) 30 ML UDC GT SCH ×3 (09:04→17:26)
[2018-05-22] MEDS: BACLOFEN (10 MG) 10 MG TABLET GT SCH ×4 (09:04→21:23)
[2018-05-22] MEDS: METHADONE HCL 10 MG TABLET GT SCH (09:04)
[2018-05-22] MEDS: MULTIVIT W/MINERALS 1 TAB TABLET GT SCH (09:04)
[2018-05-22] MEDS: CALCIUM CARBONATE 500 MG TAB.CHEW GT SCH ×3 (09:04→17:26)
[2018-05-22] MEDS: ACIDOPHILUS/BULGARICUS 1 EACH TAB.CHEW GT SCH ×3 (09:04→17:26)
[2018-05-22] MEDS: GABAPENTIN 300 MG CAPSULE GT SCH ×3 (09:04→17:26)
[2018-05-22] MEDS: FAMOTIDINE (20 MG) 20 MG TABLET GT SCH ×2 (09:04→21:24)
[2018-05-22] MEDS: HYDROCODONE/APAP 5/325MG 1 EACH TABLET GT SCH ×2 (10:00→21:24)
[2018-05-22] MEDS: CADEXOMER IODINE 40 GM TUBE TP SCH ×3 (10:35→21:25)
[2018-05-22] MEDS: HYDROGEN PEROXIDE 480 ML BOTTLE TP SCH ×2 (10:35→21:25)
[2018-05-22] MEDS: DAKINS QUARTER STRENGTH (0.125%) 480 ML BOTTLE TOP SCH ×4 (10:35→21:25)
[2018-05-22] MEDS: CALCITRIOL 0.25 MCG CAPSULE PO SCH (10:52)
[2018-05-22 10:54] VITALS: BP 123/63
[2018-05-22 10:55] VITALS: BP 129/70
--- NOTE | 2018-05-22 10:55 | NUR ---
SEEN AND EXAMINED BY DR. AMAYA WITH NEW ORDERS, LABS WERE RELATED TO MD. NEW ORDERS 1. CALCITRIOL 0.25MCG VIA PO DAILY FOR HYPOCALCEMIA. NEW ORDERS CARRIED OUT AND PATIENT MADE AWARE.
--- NOTE | 2018-05-22 19:29 | NUR ---
PT RCVD NENA'D ON COOL AEROSOL. PLACED PT ON MECHANICAL PER MD ORDER WITH CHARTED SETTINGS. TX GIVEN AND NO ADVERSE REACTION NOTED. SX DONE. PT TRACH PATENT AND SECURE. VENT PLUGGED INTO RED OUTLET. ALARMS ARE SET AND AUDIBLE. AMBU BAG AT BEDSIDE. WILL CONTINUE TO MONITOR. Addendum: 05/22/18 at 1930 by JOSÉ LUIS HARMAN RT Amended: Links added.
[2018-05-22 20:16] VITALS: BP 118/88
[2018-05-22] MEDS: ZINC SULFATE 220 MG CAPSULE GT SCH (21:24)
[2018-05-22] MEDS: ENOXAPARIN SODIUM 40 MG/0.4 ML DISP.SYRIN SQ SCH (21:24)
[2018-05-22] MEDS: POLYETHYLENE GLYCOL 3350 17 GM POWD.PACK GT SCH (21:25)
[2018-05-22] MEDS: ATORVASTATIN 10 MG TABLET GT SCH (21:25)
[2018-05-23] MEDS: IPRATROPIUM NEB FS 0.5 MG/2.5 ML AMPUL.NEB NEB SCH ×4 (01:40→19:56)
[2018-05-23 08:02] VITALS: BP 135/87
[2018-05-23] MEDS: HYDROGEN PEROXIDE 480 ML BOTTLE TP SCH ×2 (09:00→22:00)
[2018-05-23] MEDS: DAKINS QUARTER STRENGTH (0.125%) 480 ML BOTTLE TOP SCH ×4 (09:00→22:00)
[2018-05-23] MEDS: FAMOTIDINE (20 MG) 20 MG TABLET GT SCH ×2 (09:00→21:16)
[2018-05-23] MEDS: CALCITRIOL 0.25 MCG CAPSULE PO SCH (09:00)
[2018-05-23] MEDS: ASCORBIC ACID 500 MG TABLET GT SCH ×2 (09:00→17:00)
[2018-05-23] MEDS: METHADONE HCL 10 MG TABLET GT SCH (09:00)
[2018-05-23] MEDS: ACIDOPHILUS/BULGARICUS 1 EACH TAB.CHEW GT SCH ×3 (09:00→17:00)
[2018-05-23] MEDS: CADEXOMER IODINE 40 GM TUBE TP SCH ×3 (09:00→22:00)
[2018-05-23] MEDS: GABAPENTIN 300 MG CAPSULE GT SCH ×3 (09:00→17:00)
[2018-05-23] MEDS: CALCIUM CARBONATE 500 MG TAB.CHEW GT SCH ×3 (09:00→17:00)
[2018-05-23] MEDS: PROSTAT (PYXIS) 30 ML UDC GT SCH ×3 (09:00→17:00)
[2018-05-23] MEDS: BACLOFEN (10 MG) 10 MG TABLET GT SCH ×4 (09:00→21:15)
[2018-05-23] MEDS: MULTIVIT W/MINERALS 1 TAB TABLET GT SCH (09:00)
[2018-05-23] MEDS: HYDROCODONE/APAP 5/325MG 1 EACH TABLET GT SCH ×2 (09:00→21:16)
[2018-05-23] MEDS: ESCITALOPRAM OXALATE (10 MG) 10 MG TABLET GT SCH (09:00)
[2018-05-23 20:22] VITALS: BP 121/70
[2018-05-23] MEDS: ZINC SULFATE 220 MG CAPSULE GT SCH (21:16)
[2018-05-23] MEDS: ENOXAPARIN SODIUM 40 MG/0.4 ML DISP.SYRIN SQ SCH (21:16)
[2018-05-23] MEDS: POLYETHYLENE GLYCOL 3350 17 GM POWD.PACK GT SCH (21:17)
[2018-05-23] MEDS: ATORVASTATIN 10 MG TABLET GT SCH (21:17)
[2018-05-24] MEDS: IPRATROPIUM NEB FS 0.5 MG/2.5 ML AMPUL.NEB NEB SCH ×4 (02:08→19:30)
[2018-05-24 07:57] VITALS: BP 122/72
[2018-05-24] MEDS: METHADONE HCL 10 MG TABLET GT SCH (09:00)
[2018-05-24] MEDS: HYDROCODONE/APAP 5/325MG 1 EACH TABLET GT SCH ×2 (09:00→21:40)
[2018-05-24] MEDS: BACLOFEN (10 MG) 10 MG TABLET GT SCH ×4 (09:00→21:39)
[2018-05-24] MEDS: ACIDOPHILUS/BULGARICUS 1 EACH TAB.CHEW GT SCH ×3 (09:00→17:11)
[2018-05-24] MEDS: GABAPENTIN 300 MG CAPSULE GT SCH ×3 (09:00→17:11)
[2018-05-24] MEDS: ESCITALOPRAM OXALATE (10 MG) 10 MG TABLET GT SCH (09:00)
[2018-05-24] MEDS: FAMOTIDINE (20 MG) 20 MG TABLET GT SCH ×2 (09:01→21:40)
[2018-05-24] MEDS: MULTIVIT W/MINERALS 1 TAB TABLET GT SCH (09:01)
[2018-05-24] MEDS: CALCIUM CARBONATE 500 MG TAB.CHEW GT SCH ×3 (09:01→17:11)
[2018-05-24] MEDS: PROSTAT (PYXIS) 30 ML UDC GT SCH ×3 (09:01→17:11)
[2018-05-24] MEDS: ASCORBIC ACID 500 MG TABLET GT SCH ×2 (09:01→17:11)
[2018-05-24] MEDS: CALCITRIOL 0.25 MCG CAPSULE PO SCH (09:01)
[2018-05-24] MEDS: CADEXOMER IODINE 40 GM TUBE TP SCH ×3 (09:30→21:43)
[2018-05-24] MEDS: DAKINS QUARTER STRENGTH (0.125%) 480 ML BOTTLE TOP SCH ×4 (09:30→21:42)
[2018-05-24] MEDS: HYDROGEN PEROXIDE 480 ML BOTTLE TP SCH ×2 (09:30→21:42)
--- NOTE | 2018-05-24 09:35 | NUR ---
Sacral wound debridement done by Dr. Rafiq Diaz, tolerated well with minimal amount of bleeding. Pain medication given as ordered. Will continue to monitor.
--- NOTE | 2018-05-24 09:45 | NUR ---
RT NOTE PT RECEIVED ON [facility] VENT ON THE FOLLOWING NOTED SETTINGS. PT WAS SWITCHED TO COOL AEROSOL 5L 28%. BREATHING TX GIVEN, NO ADVERSE REACTIONS NOTED. PT SX'D. WILL CONT TO MONITOR PT. BREATHING TX WAS GIVEN LATE DUE TO ATTENDANCE FOR RAPID RESPONSE CALLED IN [facility]. Addendum: 05/24/18 at 0948 by JC VICTORIA RT Amended: Links added.
--- NOTE | 2018-05-24 13:42 | NUR ---
RT NOTE ATROVENT IS NOT IN STOCK, ALBUTEROL PRN GIVEN FOR NOW.
[2018-05-24] MEDS: ALBUTEROL HALF STRENGTH 1.25 MG/3 ML VIAL.NEB IH PRN (19:46)
[2018-05-24 19:56] VITALS: BP 124/68
[2018-05-24] MEDS: ZINC SULFATE 220 MG CAPSULE GT SCH (21:40)
[2018-05-24] MEDS: ENOXAPARIN SODIUM 40 MG/0.4 ML DISP.SYRIN SQ SCH (21:41)
[2018-05-24] MEDS: POLYETHYLENE GLYCOL 3350 17 GM POWD.PACK GT SCH (21:43)
[2018-05-24] MEDS: ATORVASTATIN 10 MG TABLET GT SCH (21:43)
[2018-05-25] MEDS: IPRATROPIUM NEB FS 0.5 MG/2.5 ML AMPUL.NEB NEB SCH ×4 (00:54→19:36)
[2018-05-25] MEDS: ALBUTEROL HALF STRENGTH 1.25 MG/3 ML VIAL.NEB IH PRN (00:54)
--- NOTE | 2018-05-25 07:12 | NUR ---
RT NOTE PT PLACED ON CA PER MD ORDER. CUFF DEFLATED. PT SUCTIONED. PT IS AWAKE AND ALERT. NO DISTRESS NOTED AT MOMENT. AMBU BAG AT BED SIDE. Addendum: 05/25/18 at 0714 by KAJAL ARAIZA RT Amended: Links added.
[2018-05-25 08:08] VITALS: BP 132/70
[2018-05-25] MEDS: ESCITALOPRAM OXALATE (10 MG) 10 MG TABLET GT SCH (08:54)
[2018-05-25] MEDS: ACIDOPHILUS/BULGARICUS 1 EACH TAB.CHEW GT SCH ×3 (08:54→17:00)
[2018-05-25] MEDS: BACLOFEN (10 MG) 10 MG TABLET GT SCH ×4 (08:54→21:15)
[2018-05-25] MEDS: METHADONE HCL 10 MG TABLET GT SCH (08:54)
[2018-05-25] MEDS: CALCITRIOL 0.25 MCG CAPSULE PO SCH (08:55)
[2018-05-25] MEDS: PROSTAT (PYXIS) 30 ML UDC GT SCH ×3 (08:55→17:00)
[2018-05-25] MEDS: ASCORBIC ACID 500 MG TABLET GT SCH ×2 (08:55→17:00)
[2018-05-25] MEDS: FAMOTIDINE (20 MG) 20 MG TABLET GT SCH ×2 (08:55→21:16)
[2018-05-25] MEDS: MULTIVIT W/MINERALS 1 TAB TABLET GT SCH (08:55)
[2018-05-25] MEDS: HYDROCODONE/APAP 5/325MG 1 EACH TABLET GT SCH ×2 (08:55→22:30)
[2018-05-25] MEDS: CALCIUM CARBONATE 500 MG TAB.CHEW GT SCH ×3 (08:55→17:00)
[2018-05-25] MEDS: GABAPENTIN 300 MG CAPSULE GT SCH ×3 (08:55→17:00)
[2018-05-25] MEDS: HYDROGEN PEROXIDE 480 ML BOTTLE TP SCH ×2 (09:33→22:30)
[2018-05-25] MEDS: DAKINS QUARTER STRENGTH (0.125%) 480 ML BOTTLE TOP SCH ×4 (09:33→23:00)
[2018-05-25] MEDS: CADEXOMER IODINE 40 GM TUBE TP SCH ×3 (09:33→22:30)
[2018-05-25] MEDS: HYDROCODONE/APAP 5/325MG 1 EACH TABLET GT PRN (18:12)
[2018-05-25 20:06] VITALS: BP 134/69
[2018-05-25] MEDS: ENOXAPARIN SODIUM 40 MG/0.4 ML DISP.SYRIN SQ SCH (21:16)
[2018-05-25] MEDS: ZINC SULFATE 220 MG CAPSULE GT SCH (21:16)
[2018-05-25] MEDS: ATORVASTATIN 10 MG TABLET GT SCH (21:17)
[2018-05-25] MEDS: POLYETHYLENE GLYCOL 3350 17 GM POWD.PACK GT SCH (21:17)
[2018-05-26] MEDS: METHOCARBAMOL (750MG) 750 MG TABLET GT PRN (00:30)
[2018-05-26] MEDS: IPRATROPIUM NEB FS 0.5 MG/2.5 ML AMPUL.NEB NEB SCH ×4 (01:39→19:27)
[2018-05-26] MEDS: HYDROCODONE/APAP 5/325MG 1 EACH TABLET GT PRN ×2 (05:30→17:58)
[2018-05-26 07:35] VITALS: BP 118/75
[2018-05-26] MEDS: GABAPENTIN 300 MG CAPSULE GT SCH ×3 (09:23→17:57)
[2018-05-26] MEDS: ACIDOPHILUS/BULGARICUS 1 EACH TAB.CHEW GT SCH ×3 (09:23→17:57)
[2018-05-26] MEDS: ESCITALOPRAM OXALATE (10 MG) 10 MG TABLET GT SCH (09:23)
[2018-05-26] MEDS: BACLOFEN (10 MG) 10 MG TABLET GT SCH ×4 (09:23→21:22)
[2018-05-26] MEDS: METHADONE HCL 10 MG TABLET GT SCH (09:23)
[2018-05-26] MEDS: PROSTAT (PYXIS) 30 ML UDC GT SCH ×3 (09:24→17:57)
[2018-05-26] MEDS: FAMOTIDINE (20 MG) 20 MG TABLET GT SCH ×2 (09:24→21:22)
[2018-05-26] MEDS: ASCORBIC ACID 500 MG TABLET GT SCH ×2 (09:24→17:57)
[2018-05-26] MEDS: CALCITRIOL 0.25 MCG CAPSULE PO SCH (09:24)
[2018-05-26] MEDS: HYDROCODONE/APAP 5/325MG 1 EACH TABLET GT SCH ×2 (09:24→22:30)
[2018-05-26] MEDS: CALCIUM CARBONATE 500 MG TAB.CHEW GT SCH ×3 (09:24→17:57)
[2018-05-26] MEDS: MULTIVIT W/MINERALS 1 TAB TABLET GT SCH (09:24)
[2018-05-26] MEDS: DAKINS QUARTER STRENGTH (0.125%) 480 ML BOTTLE TOP SCH ×4 (10:00→23:00)
[2018-05-26] MEDS: HYDROGEN PEROXIDE 480 ML BOTTLE TP SCH ×2 (10:00→23:00)
[2018-05-26] MEDS: CADEXOMER IODINE 40 GM TUBE TP SCH ×3 (10:00→23:00)
[2018-05-26 19:44] VITALS: BP 123/77
[2018-05-26] MEDS: ZINC SULFATE 220 MG CAPSULE GT SCH (21:22)
[2018-05-26] MEDS: POLYETHYLENE GLYCOL 3350 17 GM POWD.PACK GT SCH (21:23)
[2018-05-26] MEDS: ENOXAPARIN SODIUM 40 MG/0.4 ML DISP.SYRIN SQ SCH (21:23)
[2018-05-26] MEDS: ATORVASTATIN 10 MG TABLET GT SCH (21:23)
[2018-05-27] MEDS: IPRATROPIUM NEB FS 0.5 MG/2.5 ML AMPUL.NEB NEB SCH ×4 (00:51→19:13)
[2018-05-27 07:55] VITALS: BP 123/82
[2018-05-27] MEDS: BACLOFEN (10 MG) 10 MG TABLET GT SCH ×4 (09:00→21:06)
[2018-05-27] MEDS: DAKINS QUARTER STRENGTH (0.125%) 480 ML BOTTLE TOP SCH ×4 (09:00→21:08)
[2018-05-27] MEDS: FAMOTIDINE (20 MG) 20 MG TABLET GT SCH ×2 (09:00→21:07)
[2018-05-27] MEDS: HYDROGEN PEROXIDE 480 ML BOTTLE TP SCH ×2 (09:00→21:08)
[2018-05-27] MEDS: ASCORBIC ACID 500 MG TABLET GT SCH ×2 (09:00→17:00)
[2018-05-27] MEDS: ESCITALOPRAM OXALATE (10 MG) 10 MG TABLET GT SCH (09:00)
[2018-05-27] MEDS: GABAPENTIN 300 MG CAPSULE GT SCH ×3 (09:00→17:00)
[2018-05-27] MEDS: CALCIUM CARBONATE 500 MG TAB.CHEW GT SCH ×3 (09:00→17:00)
[2018-05-27] MEDS: CALCITRIOL 0.25 MCG CAPSULE PO SCH (09:00)
[2018-05-27] MEDS: ACIDOPHILUS/BULGARICUS 1 EACH TAB.CHEW GT SCH ×3 (09:00→17:00)
[2018-05-27] MEDS: HYDROCODONE/APAP 5/325MG 1 EACH TABLET GT SCH ×2 (09:00→21:07)
[2018-05-27] MEDS: CADEXOMER IODINE 40 GM TUBE TP SCH ×3 (09:00→21:08)
[2018-05-27] MEDS: PROSTAT (PYXIS) 30 ML UDC GT SCH ×3 (09:00→17:00)
[2018-05-27] MEDS: MULTIVIT W/MINERALS 1 TAB TABLET GT SCH (09:00)
[2018-05-27] MEDS: METHADONE HCL 10 MG TABLET GT SCH (09:00)
[2018-05-27 20:03] VITALS: BP 126/74
--- NOTE | 2018-05-27 20:55 | NUR ---
RT RECEIVED PATIENT ON COOL AEROSOL , PLACED PATIENT ON VENT WITH NOTED VENT SETTINGS PER MD ORDER. TRACH TUBE PATENT AND SECURED. ALARMS SET PER PROTOCOL AND AUDIBLE. VENT PLUGGED INTO RED OUTLET. AMBUBAG AT BEDSIDE. WILL CONTINUE TO MONITOR PATIENT. Addendum: 05/27/18 at 2057 by ROM ARAIZA RT Amended: Links added.
[2018-05-27] MEDS: ENOXAPARIN SODIUM 40 MG/0.4 ML DISP.SYRIN SQ SCH (21:07)
[2018-05-27] MEDS: ZINC SULFATE 220 MG CAPSULE GT SCH (21:07)
[2018-05-27] MEDS: ATORVASTATIN 10 MG TABLET GT SCH (21:08)
[2018-05-27] MEDS: POLYETHYLENE GLYCOL 3350 17 GM POWD.PACK GT SCH (21:08)
[2018-05-28] MEDS: IPRATROPIUM NEB FS 0.5 MG/2.5 ML AMPUL.NEB NEB SCH ×4 (01:16→19:42)
[2018-05-28 08:01] VITALS: BP 127/70
--- NOTE | 2018-05-28 08:33 | NUR ---
RAVI called Dr. Sargent's certified pharmacist assistant Mysyossi to follow up with May [address] Vaca. Patient has been complaining of pain on his upper left tooth. Mystey told SW pt needs to be brought to the office which is just across our building at [address] [place] [address]. [address]. RAVI will discuss this with supervisor engine assembly Cristal and subacute charge nurse to set this up.
[2018-05-28] MEDS: DAKINS QUARTER STRENGTH (0.125%) 480 ML BOTTLE TOP SCH ×4 (09:00→21:26)
[2018-05-28] MEDS: HYDROGEN PEROXIDE 480 ML BOTTLE TP SCH ×2 (09:00→21:26)
[2018-05-28] MEDS: CADEXOMER IODINE 40 GM TUBE TP SCH ×3 (09:00→21:26)
--- NOTE | 2018-05-28 09:20 | NUR ---
SW talked to pt today and explained that he would be taken to the dentist's office onMayil 18 at 11:30 AM
[2018-05-28] MEDS: BACLOFEN (10 MG) 10 MG TABLET GT SCH ×4 (09:26→21:25)
[2018-05-28] MEDS: ESCITALOPRAM OXALATE (10 MG) 10 MG TABLET GT SCH (09:26)
[2018-05-28] MEDS: ACIDOPHILUS/BULGARICUS 1 EACH TAB.CHEW GT SCH ×3 (09:26→17:41)
[2018-05-28] MEDS: CALCIUM CARBONATE 500 MG TAB.CHEW GT SCH ×3 (09:27→17:41)
[2018-05-28] MEDS: CALCITRIOL 0.25 MCG CAPSULE PO SCH (09:27)
[2018-05-28] MEDS: MULTIVIT W/MINERALS 1 TAB TABLET GT SCH (09:27)
[2018-05-28] MEDS: ASCORBIC ACID 500 MG TABLET GT SCH ×2 (09:27→17:41)
[2018-05-28] MEDS: PROSTAT (PYXIS) 30 ML UDC GT SCH ×3 (09:27→17:41)
[2018-05-28] MEDS: FAMOTIDINE (20 MG) 20 MG TABLET GT SCH ×2 (09:27→21:26)
[2018-05-28] MEDS: GABAPENTIN 300 MG CAPSULE GT SCH ×3 (09:27→17:41)
[2018-05-28] MEDS: METHADONE HCL 10 MG TABLET GT SCH (09:27)
[2018-05-28] MEDS: HYDROCODONE/APAP 5/325MG 1 EACH TABLET GT SCH ×2 (09:30→21:26)
--- NOTE | 2018-05-28 09:51 | NUR ---
RAVI called [employer] [phone] and spoke to Basilia. All needed information about pt condition, height and weigh were provided to [employer]. Trip number [id number] was set up for June 07 at 11:30 AM. RAVI requested [employer] as preferred transportation.
[2018-05-28] MEDS: HYDROCODONE/APAP 5/325MG 1 EACH TABLET GT PRN (17:46)
--- NOTE | 2018-05-28 18:30 | NUR ---
Seen and examined by Peggy Hoffman NP, no new order given.
[2018-05-28 20:13] VITALS: BP 118/70
[2018-05-28] MEDS: ZINC SULFATE 220 MG CAPSULE GT SCH (21:26)
[2018-05-28] MEDS: ENOXAPARIN SODIUM 40 MG/0.4 ML DISP.SYRIN SQ SCH (21:26)
[2018-05-28] MEDS: ATORVASTATIN 10 MG TABLET GT SCH (21:27)
[2018-05-28] MEDS: POLYETHYLENE GLYCOL 3350 17 GM POWD.PACK GT SCH (21:27)
[2018-05-29] MEDS: IPRATROPIUM NEB FS 0.5 MG/2.5 ML AMPUL.NEB NEB SCH ×4 (01:00→19:43)
[2018-05-29 07:54] VITALS: BP 138/78
[2018-05-29] MEDS: BACLOFEN (10 MG) 10 MG TABLET GT SCH ×4 (08:14→21:21)
[2018-05-29] MEDS: MULTIVIT W/MINERALS 1 TAB TABLET GT SCH (08:14)
[2018-05-29] MEDS: ASCORBIC ACID 500 MG TABLET GT SCH ×2 (08:14→17:09)
[2018-05-29] MEDS: CALCIUM CARBONATE 500 MG TAB.CHEW GT SCH ×3 (08:14→17:09)
[2018-05-29] MEDS: GABAPENTIN 300 MG CAPSULE GT SCH ×3 (08:14→17:09)
[2018-05-29] MEDS: PROSTAT (PYXIS) 30 ML UDC GT SCH ×3 (08:14→17:09)
[2018-05-29] MEDS: ACIDOPHILUS/BULGARICUS 1 EACH TAB.CHEW GT SCH ×3 (08:14→17:09)
[2018-05-29] MEDS: CALCITRIOL 0.25 MCG CAPSULE PO SCH (08:14)
[2018-05-29] MEDS: METHADONE HCL 10 MG TABLET GT SCH (08:14)
[2018-05-29] MEDS: ESCITALOPRAM OXALATE (10 MG) 10 MG TABLET GT SCH (08:14)
[2018-05-29] MEDS: FAMOTIDINE (20 MG) 20 MG TABLET GT SCH ×2 (08:14→21:22)
--- NOTE | 2018-05-29 09:00 | NUR ---
Seen and examined by Dr. Ugarte, no new order given.
[2018-05-29] MEDS: CADEXOMER IODINE 40 GM TUBE TP SCH ×3 (09:58→21:30)
[2018-05-29] MEDS: DAKINS QUARTER STRENGTH (0.125%) 480 ML BOTTLE TOP SCH ×4 (09:58→21:30)
[2018-05-29] MEDS: HYDROGEN PEROXIDE 480 ML BOTTLE TP SCH ×2 (09:58→21:30)
[2018-05-29] MEDS: HYDROCODONE/APAP 5/325MG 1 EACH TABLET GT SCH ×2 (09:58→21:22)
[2018-05-29 20:13] VITALS: BP 98/59
[2018-05-29] MEDS: ZINC SULFATE 220 MG CAPSULE GT SCH (21:23)
[2018-05-29] MEDS: ATORVASTATIN 10 MG TABLET GT SCH (21:30)
[2018-05-29] MEDS: POLYETHYLENE GLYCOL 3350 17 GM POWD.PACK GT SCH (21:30)
[2018-05-29] MEDS: ENOXAPARIN SODIUM 40 MG/0.4 ML DISP.SYRIN SQ SCH (21:30)
[2018-05-30] MEDS: IPRATROPIUM NEB FS 0.5 MG/2.5 ML AMPUL.NEB NEB SCH ×4 (00:43→19:45)
[2018-05-30 07:53] VITALS: BP 133/89
[2018-05-30] MEDS: ESCITALOPRAM OXALATE (10 MG) 10 MG TABLET GT SCH (08:43)
[2018-05-30] MEDS: BACLOFEN (10 MG) 10 MG TABLET GT SCH ×4 (08:43→21:31)
[2018-05-30] MEDS: ACIDOPHILUS/BULGARICUS 1 EACH TAB.CHEW GT SCH ×3 (08:43→17:16)
[2018-05-30] MEDS: ASCORBIC ACID 500 MG TABLET GT SCH ×2 (08:44→17:17)
[2018-05-30] MEDS: FAMOTIDINE (20 MG) 20 MG TABLET GT SCH ×2 (08:44→21:32)
[2018-05-30] MEDS: GABAPENTIN 300 MG CAPSULE GT SCH ×3 (08:44→17:16)
[2018-05-30] MEDS: PROSTAT (PYXIS) 30 ML UDC GT SCH ×3 (08:44→17:16)
[2018-05-30] MEDS: CALCIUM CARBONATE 500 MG TAB.CHEW GT SCH ×3 (08:44→17:17)
[2018-05-30] MEDS: MULTIVIT W/MINERALS 1 TAB TABLET GT SCH (08:44)
[2018-05-30] MEDS: HYDROCODONE/APAP 5/325MG 1 EACH TABLET GT SCH ×2 (08:44→21:32)
[2018-05-30] MEDS: METHADONE HCL 10 MG TABLET GT SCH (08:44)
[2018-05-30] MEDS: CALCITRIOL 0.25 MCG CAPSULE PO SCH (08:45)
[2018-05-30] MEDS: DAKINS QUARTER STRENGTH (0.125%) 480 ML BOTTLE TOP SCH ×4 (09:00→21:57)
[2018-05-30] MEDS: CADEXOMER IODINE 40 GM TUBE TP SCH ×3 (09:00→21:58)
[2018-05-30] MEDS: HYDROGEN PEROXIDE 480 ML BOTTLE TP SCH ×2 (09:00→21:57)
[2018-05-30] MEDS: HYDROCODONE/APAP 5/325MG 1 EACH TABLET GT PRN (13:08)
[2018-05-30 20:02] VITALS: BP 109/61
[2018-05-30] MEDS: ZINC SULFATE 220 MG CAPSULE GT SCH (21:32)
[2018-05-30] MEDS: ENOXAPARIN SODIUM 40 MG/0.4 ML DISP.SYRIN SQ SCH (21:32)
[2018-05-30] MEDS: ATORVASTATIN 10 MG TABLET GT SCH (21:32)
[2018-05-30] MEDS: POLYETHYLENE GLYCOL 3350 17 GM POWD.PACK GT SCH (21:32)
[2018-05-31] MEDS: IPRATROPIUM NEB FS 0.5 MG/2.5 ML AMPUL.NEB NEB SCH ×4 (02:01→19:24)
[2018-05-31] MEDS: METHOCARBAMOL (750MG) 750 MG TABLET GT PRN (03:46)
[2018-05-31 07:36] VITALS: BP 128/69
[2018-05-31] MEDS: HYDROCODONE/APAP 5/325MG 1 EACH TABLET GT SCH ×2 (09:17→21:14)
[2018-05-31] MEDS: CALCIUM CARBONATE 500 MG TAB.CHEW GT SCH ×3 (09:20→17:22)
[2018-05-31] MEDS: CALCITRIOL 0.25 MCG CAPSULE PO SCH (09:20)
[2018-05-31] MEDS: PROSTAT (PYXIS) 30 ML UDC GT SCH ×3 (09:20→17:22)
[2018-05-31] MEDS: BACLOFEN (10 MG) 10 MG TABLET GT SCH ×4 (09:20→21:14)
[2018-05-31] MEDS: ASCORBIC ACID 500 MG TABLET GT SCH ×2 (09:20→17:22)
[2018-05-31] MEDS: GABAPENTIN 300 MG CAPSULE GT SCH ×3 (09:20→17:22)
[2018-05-31] MEDS: ACIDOPHILUS/BULGARICUS 1 EACH TAB.CHEW GT SCH ×3 (09:20→17:22)
[2018-05-31] MEDS: ESCITALOPRAM OXALATE (10 MG) 10 MG TABLET GT SCH (09:20)
[2018-05-31] MEDS: FAMOTIDINE (20 MG) 20 MG TABLET GT SCH ×2 (09:20→21:14)
[2018-05-31] MEDS: MULTIVIT W/MINERALS 1 TAB TABLET GT SCH (09:20)
[2018-05-31] MEDS: CADEXOMER IODINE 40 GM TUBE TP SCH ×3 (10:00→21:15)
[2018-05-31] MEDS: HYDROGEN PEROXIDE 480 ML BOTTLE TP SCH ×2 (10:00→21:15)
[2018-05-31] MEDS: DAKINS QUARTER STRENGTH (0.125%) 480 ML BOTTLE TOP SCH ×4 (10:00→21:15)
[2018-05-31] MEDS: METHADONE HCL 10 MG TABLET GT SCH (10:15)
[2018-05-31 19:45] VITALS: BP 121/67
[2018-05-31] MEDS: ZINC SULFATE 220 MG CAPSULE GT SCH (21:14)
[2018-05-31] MEDS: ATORVASTATIN 10 MG TABLET GT SCH (21:15)
[2018-05-31] MEDS: ENOXAPARIN SODIUM 40 MG/0.4 ML DISP.SYRIN SQ SCH (21:15)
[2018-05-31] MEDS: POLYETHYLENE GLYCOL 3350 17 GM POWD.PACK GT SCH (21:15)
[2018-06-01] MEDS: IPRATROPIUM NEB FS 0.5 MG/2.5 ML AMPUL.NEB NEB SCH ×4 (01:16→20:47)
[2018-06-01] MEDS: METHOCARBAMOL (750MG) 750 MG TABLET GT PRN (06:33)
[2018-06-01 07:41] VITALS: BP 122/56
[2018-06-01] MEDS: HYDROCODONE/APAP 5/325MG 1 EACH TABLET GT SCH ×2 (09:00→20:49)
[2018-06-01] MEDS: FAMOTIDINE (20 MG) 20 MG TABLET GT SCH ×2 (09:00→20:49)
[2018-06-01] MEDS: PROSTAT (PYXIS) 30 ML UDC GT SCH ×3 (09:00→17:02)
[2018-06-01] MEDS: ASCORBIC ACID 500 MG TABLET GT SCH ×2 (09:00→17:02)
[2018-06-01] MEDS: MULTIVIT W/MINERALS 1 TAB TABLET GT SCH (09:00)
[2018-06-01] MEDS: ESCITALOPRAM OXALATE (10 MG) 10 MG TABLET GT SCH (09:00)
[2018-06-01] MEDS: CALCITRIOL 0.25 MCG CAPSULE PO SCH (09:00)
[2018-06-01] MEDS: HYDROGEN PEROXIDE 480 ML BOTTLE TP SCH ×2 (09:00→20:50)
[2018-06-01] MEDS: METHADONE HCL 10 MG TABLET GT SCH (09:00)
[2018-06-01] MEDS: GABAPENTIN 300 MG CAPSULE GT SCH ×3 (09:00→17:02)
[2018-06-01] MEDS: ACIDOPHILUS/BULGARICUS 1 EACH TAB.CHEW GT SCH ×3 (09:00→17:02)
[2018-06-01] MEDS: BACLOFEN (10 MG) 10 MG TABLET GT SCH ×4 (09:00→20:49)
[2018-06-01] MEDS: CALCIUM CARBONATE 500 MG TAB.CHEW GT SCH ×3 (09:00→17:02)
[2018-06-01] MEDS: DAKINS QUARTER STRENGTH (0.125%) 480 ML BOTTLE TOP SCH ×4 (09:00→20:50)
[2018-06-01] MEDS: CADEXOMER IODINE 40 GM TUBE TP SCH ×3 (09:00→20:50)
--- NOTE | 2018-06-01 09:10 | NUR ---
MALE PT PLACED BACK ON MECHANICAL VENTILATOR DUE TO LOS SPO2 AND INCREASE IN WORK OF BREATHING. CHARGE NURSE AWARE. PT SHOWS IMPROVEMENT BACK ON VENTILATOR. BILATERAL CHEST RISE OBSERVED. ALARMS SET AND AUDIBLE THROUGH OUT SUBACUTE UNIT. SPARE TRACH AND BAG VALVE MASK AT HEAD OF BED. MECHANICAL VENTILATOR PLUGGED INTO RED OUTLET. Addendum: 06/01/18 at 1111 by CHIDI DODSON RT Amended: Links added.
--- NOTE | 2018-06-01 09:20 | NUR ---
0920AM RESIDENT VITAL SIGNS BLOOD PRESSURE 124/71, PULSE RANGING BETWEEN 145-150, SATURATION 98 %, RESP RATE 24, ORAL TEMP 103.0, DR. AMAYA INFORMED ABOUT RESIDENT SITUATION, NEW ORDERS WERE GIVEN, ORDERS WERE CARRIED OUT, COOLING MEASURES APPLIED AND ACETAMINOPHEN 650MG PRN WAS GIVEN FOR TEMP GREATER THAN 101.0.
[2018-06-01] MEDS: ACETAMINOPHEN 650 MG/20 ML UDC- SA PATIENTS-FEVER ONLY GT PRN (09:35)
[2018-06-01 11:43] LABS: BASOPHILS # (AUTO) 0.1 /CMM (0.0-0.2); BASOPHILS % (AUTO) 0.2 % (0.0-2.0); EOSINOPHILS % (AUTO) 0.1 % (0.0-6.0); HEMATOCRIT 31 % (39-51); HEMOGLOBIN 9.5 g/dL (13.5-17.5); LYMPHOCYTES # (AUTO) 0.3 /CMM (0.8-4.8); LYMPHOCYTES % (AUTO) 1.4 % (20.0-44.0); MEAN CORPUSCULAR HGB CONC 31 g/dl (31.0-36.0); MEAN CORPUSCULAR VOLUME 76 fL (80-96); MONOCYTES # (AUTO) 0.7 /CMM (0.1-1.30); MONOCYTES % (AUTO) 3.1 % (2.0-12.0); NEUTROPHILS # (AUTO) 22.3 /CMM (1.8-8.9); NEUTROPHILS % (AUTO) 95.2 % (43.0-81.0); PLATELET COUNT (AUTO) 467 /CMM (150-450); RED BLOOD CELL COUNT(AUTO) 4.04 MIL/uL (4.5-6.0); WHITE BLOOD COUNT (AUTO) 23.5 K/uL (4.3-11.0)
[2018-06-01 11:58] LABS: CALCIUM, SERUM 8.9 mg/dL (8.5-10.1); POTASSIUM 3.8 mmol/L (3.5-5.1)
[2018-06-01 12:00] LABS: BAND % (MANUAL) 14 % (0.0-5.0); LYMPHOCYTES % (MANUAL) 2 % (16-48); MONOCYTES % (MANUAL) 3 % (0-11.0); NEUTROPHILS % (MANUAL) 81 (42-76)
[2018-06-01] MEDS: VANCOMYCIN 1 GM in IV D5W 250ml IV SCH (12:31)
--- NOTE | 2018-06-01 14:40 | NUR ---
Dr. Ugarte notified of CBC, BMP and Chest Xray result, WBC 23.5. Chest Xray shows left mid to lower lung field air spaces disease, suspicious for pneumonia. Dr. Ugarte thinks patient might have UTI. IVF started, IV Vanco given. Primaxin IV as originally ordered no covered by patient's insurance and therefore changed to Merrem. Patient received Merrem in the past, no allergic reaction observed. IV HL in the R foot G #20, patent with good blood return. Dr. Seaman and resident's sister in [facility] both notified of patient's change in condition.
[2018-06-01 15:50] LABS: BILIRUBIN,URINE NEGATIVE (NEGATIVE); BLOOD, URINE 2+ Ery/uL (NEGATIVE); COLOR,URINE YELLOW (YELLOW); KETONES,URINE NEGATIVE (NEGATIVE); LEUKOCYTE ESTERASE ,URINE 3+ (NEGATIVE); NITRITE, URINE POSITIVE (NEGATIVE); PROTEIN,URINE 1+ mg/dl (NEGATIVE); UGLUCOSE NEGATIVE (NEGATIVE); UROBILINOGEN,URINE 0.2 EU/dL (0.2)
[2018-06-01 16:03] LABS: APPEARANCE,URINE CLOUDY (CLEAR); BACTERIA,URINE MANY /HPF (None Seen); SQUAMOUS EPITHELIAL CELL,UR FEW /HPF (None Seen); WBC,URINE TOO NUMEROUS TO COUN /HPF (0-3)
[2018-06-01 16:04] LABS: CALCIUM OXALATE CRYSTALS,UR MODERATE /HPF (None Seen)
[2018-06-01] MEDS: MEROPENEM 1 G in IV NS 0.9% 100 ML IV SCH (17:03)
--- NOTE | 2018-06-01 18:57 | NUR ---
PATIENT LATEST VITAL SIGNS BLOOD PRESSURE 117/66, PULSE 84, RESP 15, SATURATION 99%, AND ORAL TEMPERATURE 98.9, NO RESPIRATORY DISTRESS, NO PAIN OR DISCOMFORT NOTED.
[2018-06-01 19:52] VITALS: BP 138/89
[2018-06-01] MEDS: ZINC SULFATE 220 MG CAPSULE GT SCH (20:49)
[2018-06-01] MEDS: ENOXAPARIN SODIUM 40 MG/0.4 ML DISP.SYRIN SQ SCH (20:50)
[2018-06-01] MEDS ORDERED: MEROPENEM 1 G in IV NS 0.9% 100 ML IV SCH (21:00)
[2018-06-01] MEDS: ATORVASTATIN 10 MG TABLET GT SCH (21:22)
[2018-06-01] MEDS: POLYETHYLENE GLYCOL 3350 17 GM POWD.PACK GT SCH (21:22)
[2018-06-02] MEDS: VANCOMYCIN 1 GM in IV D5W 250ml IV SCH ×2 (01:21→14:00)
[2018-06-02] MEDS: MEROPENEM 1 G in IV NS 0.9% 100 ML IV SCH ×3 (01:21→17:00)
[2018-06-02] MEDS: IPRATROPIUM NEB FS 0.5 MG/2.5 ML AMPUL.NEB NEB SCH ×4 (01:45→20:33)
[2018-06-02] MEDS: IV NS 0.9% 1,000 ML BAG IV PRN ×2 (01:45→18:56)
--- NOTE | 2018-06-02 05:31 | NUR ---
pt rec'd [facility] on [facility] vent on ac mode. no resp distress or sob noted. sx'd for mod amt of yellow secretions. alarms are set and audible. vent plugged into red outlet. ambu bag bedside Addendum: 06/02/18 at 0544 by CAITLIN SOTO RT Amended: Links added.
[2018-06-02] MEDS: METHOCARBAMOL (750MG) 750 MG TABLET GT PRN (05:38)
--- NOTE | 2018-06-02 06:54 | NUR ---
Pt had x 1 brownish emesis last night @ 2230 after sx'd, noted also with coffee ground gastric residual of 1500 ml, PRN Zofran x 1 given, GI on-call made aware- awaiting for response. Pt remains afebrile all night and verbalized no discomfort- @ 0500 temp re-checked noted 98.2 oral, HR 75 O2 Sat 99% no s/sx of resp distress and denies any abdominal discomfort- yarbrough and nephrostomy draining well- no BM noted from Colostomy bag- PRN milk of magnesia given this morning, gastric residual re-checked and noted with 120 ml - clear. Pt kept clean and comfortable, safety measures observed, call light within patient's reach.
--- NOTE | 2018-06-02 07:55 | NUR ---
RT NOTE; PATIENT PLACED ON COOL AEROSOL PER MD ORDER. TOLERATING WELL.
[2018-06-02 08:00] VITALS: BP 122/79
[2018-06-02] MEDS: HYDROGEN PEROXIDE 480 ML BOTTLE TP SCH ×2 (09:00→21:16)
[2018-06-02] MEDS: CALCIUM CARBONATE 500 MG TAB.CHEW GT SCH ×3 (09:00→17:00)
[2018-06-02] MEDS: MULTIVIT W/MINERALS 1 TAB TABLET GT SCH (09:00)
[2018-06-02] MEDS: PROSTAT (PYXIS) 30 ML UDC GT SCH ×3 (09:00→17:00)
[2018-06-02] MEDS: ACIDOPHILUS/BULGARICUS 1 EACH TAB.CHEW GT SCH ×3 (09:00→17:00)
[2018-06-02] MEDS: ASCORBIC ACID 500 MG TABLET GT SCH ×2 (09:00→17:00)
[2018-06-02] MEDS: GABAPENTIN 300 MG CAPSULE GT SCH ×3 (09:00→17:00)
[2018-06-02] MEDS: HYDROCODONE/APAP 5/325MG 1 EACH TABLET GT SCH ×2 (09:00→21:16)
[2018-06-02] MEDS: BACLOFEN (10 MG) 10 MG TABLET GT SCH ×4 (09:00→21:15)
[2018-06-02] MEDS: FAMOTIDINE (20 MG) 20 MG TABLET GT SCH ×2 (09:00→21:16)
[2018-06-02] MEDS: CALCITRIOL 0.25 MCG CAPSULE PO SCH (09:00)
[2018-06-02] MEDS: CADEXOMER IODINE 40 GM TUBE TP SCH ×3 (09:00→21:16)
[2018-06-02] MEDS: ESCITALOPRAM OXALATE (10 MG) 10 MG TABLET GT SCH (09:00)
[2018-06-02] MEDS: DAKINS QUARTER STRENGTH (0.125%) 480 ML BOTTLE TOP SCH ×4 (09:00→21:16)
[2018-06-02] MEDS: METHADONE HCL 10 MG TABLET GT SCH (09:00)
--- NOTE | 2018-06-02 10:00 | NUR ---
Resident alert, awake, in no s/s of respiratory distress, HR 72, conversing with staff, in good spirit, claims he feels much better. Patient continue on IVF NS at 80cc/hr and IV ATB Merrem and Vancomycin. Ate 100 % of breakfast, no c/o nausea and vomiting. No gastric residual noted
--- NOTE | 2018-06-02 18:20 | NUR ---
Seen and examined by Dina Jacques NP with order for Carafate, Stool for OB and CBC. Endorsed to incoming shift to collect specimen.
[2018-06-02 20:07] VITALS: BP 126/70
[2018-06-02 20:21] LABS: BASOPHILS % (AUTO) 0.4 % (0.0-2.0); EOSINOPHILS % (AUTO) 1.5 % (0.0-6.0); HEMATOCRIT 26 % (39-51); HEMOGLOBIN 7.9 g/dL (13.5-17.5); LYMPHOCYTES # (AUTO) 1.6 /CMM (0.8-4.8); LYMPHOCYTES % (AUTO) 14.5 % (20.0-44.0); MEAN CORPUSCULAR HGB CONC 31 g/dl (31.0-36.0); MEAN CORPUSCULAR VOLUME 77 fL (80-96); MONOCYTES # (AUTO) 0.7 /CMM (0.1-1.30); MONOCYTES % (AUTO) 6.3 % (2.0-12.0); NEUTROPHILS # (AUTO) 8.5 /CMM (1.8-8.9); NEUTROPHILS % (AUTO) 77.3 % (43.0-81.0); PLATELET COUNT (AUTO) 369 /CMM (150-450); RED BLOOD CELL COUNT(AUTO) 3.35 MIL/uL (4.5-6.0); WHITE BLOOD COUNT (AUTO) 11.1 K/uL (4.3-11.0)
[2018-06-02] MEDS: SUCRALFATE 1 G/10 ML UDC GT SCH ×2 (21:16→22:00)
[2018-06-02] MEDS: POLYETHYLENE GLYCOL 3350 17 GM POWD.PACK GT SCH (21:16)
[2018-06-02] MEDS: ZINC SULFATE 220 MG CAPSULE GT SCH (21:16)
[2018-06-02] MEDS: ENOXAPARIN SODIUM 40 MG/0.4 ML DISP.SYRIN SQ SCH (21:16)
[2018-06-02] MEDS: ATORVASTATIN 10 MG TABLET GT SCH (21:16)
[2018-06-03] MEDS: VANCOMYCIN 1 GM in IV D5W 250ml IV SCH ×2 (00:31→13:00)
[2018-06-03] MEDS: MEROPENEM 1 G in IV NS 0.9% 100 ML IV SCH ×3 (01:00→17:00)
[2018-06-03] MEDS: IPRATROPIUM NEB FS 0.5 MG/2.5 ML AMPUL.NEB NEB SCH ×4 (02:15→19:22)
--- NOTE | 2018-06-03 05:03 | NUR ---
PT REC'D TRACHED ON COOL AEROSOL, PT PLACED ON MECH VENT PER MD ORDERS. NO RESP DISTRESS OR SOB NOTED. SX'D FOR MOD AMT OF PALE YELLOW SECRETIONS. PT AWAKE AND ALERT. ALARMS ARE SET AND AUDIBLE. VENT PLUGGED INTO RED OUTLET. AMBU BAG BEDSIDE. WILL CONTINUE TO MONITOR. Addendum: 06/03/18 at 0507 by CAITLIN SOTO RT Amended: Links added.
[2018-06-03] MEDS: SUCRALFATE 1 G/10 ML UDC GT SCH ×4 (07:30→21:00)
[2018-06-03 08:00] VITALS: BP 115/82
[2018-06-03] MEDS: DAKINS QUARTER STRENGTH (0.125%) 480 ML BOTTLE TOP SCH ×4 (09:00→20:50)
[2018-06-03] MEDS: HYDROGEN PEROXIDE 480 ML BOTTLE TP SCH ×2 (09:00→20:52)
[2018-06-03] MEDS: HYDROCODONE/APAP 5/325MG 1 EACH TABLET GT SCH ×2 (09:00→20:50)
[2018-06-03] MEDS: CADEXOMER IODINE 40 GM TUBE TP SCH ×3 (09:00→20:59)
--- NOTE | 2018-06-03 09:00 | NUR ---
RT PT REC'D TRACH ON MECH VENT THEN PLACED ON COOL AEROSOL ON NOTED SETTINGS PER MD ORDERS. TRACH IS PATENT AND SECURED. DICE MAKER DONE. TX GIVEN WITH NO ADVERSE REACTION NOTED. SX DONE PRN. NAIMA BAG @ BEDSIDE. NO RESP DISTRESS AT THIS TIME. WILL CONTINUE TO MONITOR. Addendum: 06/03/18 at 0901 by BUFFY SHERWOOD RT Amended: Links added.
[2018-06-03] MEDS: BACLOFEN (10 MG) 10 MG TABLET GT SCH ×4 (09:24→20:49)
[2018-06-03] MEDS: ACIDOPHILUS/BULGARICUS 1 EACH TAB.CHEW GT SCH ×3 (09:24→17:08)
[2018-06-03] MEDS: ESCITALOPRAM OXALATE (10 MG) 10 MG TABLET GT SCH (09:24)
[2018-06-03] MEDS: CALCITRIOL 0.25 MCG CAPSULE PO SCH (09:25)
[2018-06-03] MEDS: PROSTAT (PYXIS) 30 ML UDC GT SCH ×3 (09:25→17:08)
[2018-06-03] MEDS: FAMOTIDINE (20 MG) 20 MG TABLET GT SCH ×2 (09:25→20:50)
[2018-06-03] MEDS: GABAPENTIN 300 MG CAPSULE GT SCH ×3 (09:25→17:08)
[2018-06-03] MEDS: METHADONE HCL 10 MG TABLET GT SCH (09:25)
[2018-06-03] MEDS: MULTIVIT W/MINERALS 1 TAB TABLET GT SCH (09:25)
[2018-06-03] MEDS: ASCORBIC ACID 500 MG TABLET GT SCH ×2 (09:25→17:08)
[2018-06-03] MEDS: CALCIUM CARBONATE 500 MG TAB.CHEW GT SCH ×3 (09:25→17:08)
[2018-06-03 10:50] LABS: OCCULT BLOOD STOOL NEGATIVE (NEGATIVE)
[2018-06-03 20:12] VITALS: BP 125/75
--- NOTE | 2018-06-03 20:12 | NUR ---
RT PT ON COOL AEROSOL. PLACED PT ON MECHANICAL PER MD ORDERED SETTINGS. TX GIVEN AND NO ADVERSE REACTION NOTED. PT TRACH PATENT AND SECURE. VENT PLUGGED INTO RED OUTLET. ALARMS ARE SET AND AUDIBLE. AMBU BAG AT BEDSIDE. NO SOB, NO RESPIRATORY DISTRESS NOTED AT THIS TIME. WILL CONTINUE TO MONITOR. Addendum: 06/03/18 at 2014 by BUFFY SHERWOOD RT Amended: Links added.
[2018-06-03] MEDS: ZINC SULFATE 220 MG CAPSULE GT SCH (20:50)
[2018-06-03] MEDS: ENOXAPARIN SODIUM 40 MG/0.4 ML DISP.SYRIN SQ SCH (20:50)
[2018-06-03] MEDS: MAGNESIUM HYDROXIDE 30 ML UDC GT PRN (21:00)
[2018-06-03] MEDS: POLYETHYLENE GLYCOL 3350 17 GM POWD.PACK GT SCH (21:00)
[2018-06-03] MEDS: ATORVASTATIN 10 MG TABLET GT SCH (21:00)
[2018-06-04] MEDS: VANCOMYCIN 1 GM in IV D5W 250ml IV SCH ×2 (01:00→13:35)
[2018-06-04] MEDS: MEROPENEM 1 G in IV NS 0.9% 100 ML IV SCH ×3 (01:00→17:00)
[2018-06-04] MEDS: IPRATROPIUM NEB FS 0.5 MG/2.5 ML AMPUL.NEB NEB SCH ×4 (01:07→19:14)
[2018-06-04] MEDS: HYDROCODONE/APAP 5/325MG 1 EACH TABLET GT PRN (05:38)
[2018-06-04] MEDS: SUCRALFATE 1 G/10 ML UDC GT SCH ×4 (07:30→21:40)
[2018-06-04 07:57] VITALS: BP 140/86
[2018-06-04] MEDS: ESCITALOPRAM OXALATE (10 MG) 10 MG TABLET GT SCH (09:01)
[2018-06-04] MEDS: ACIDOPHILUS/BULGARICUS 1 EACH TAB.CHEW GT SCH ×3 (09:01→16:09)
[2018-06-04] MEDS: BACLOFEN (10 MG) 10 MG TABLET GT SCH ×4 (09:01→20:49)
[2018-06-04] MEDS: METHADONE HCL 10 MG TABLET GT SCH (09:02)
[2018-06-04] MEDS: PROSTAT (PYXIS) 30 ML UDC GT SCH ×3 (09:03→16:09)
[2018-06-04] MEDS: CALCIUM CARBONATE 500 MG TAB.CHEW GT SCH ×3 (09:03→16:09)
[2018-06-04] MEDS: FAMOTIDINE (20 MG) 20 MG TABLET GT SCH ×2 (09:03→20:49)
[2018-06-04] MEDS: GABAPENTIN 300 MG CAPSULE GT SCH ×3 (09:03→16:09)
[2018-06-04] MEDS: MULTIVIT W/MINERALS 1 TAB TABLET GT SCH (09:03)
[2018-06-04] MEDS: ASCORBIC ACID 500 MG TABLET GT SCH ×2 (09:03→16:09)
[2018-06-04] MEDS: CALCITRIOL 0.25 MCG CAPSULE PO SCH (09:03)
[2018-06-04] MEDS: HYDROCODONE/APAP 5/325MG 1 EACH TABLET GT SCH ×2 (12:13→20:49)
--- NOTE | 2018-06-04 13:00 | NUR ---
Seen by Dr Seaman this morning. Pt has a tissue growth on the right side of his scalp that appears to have a scab. Dr Seaman said to have Dr Rafiq Diaz look at it. Informed Dr Diaz. He saw the pt and said to monitor it for a week and if it grows bigger, he might have to surgically remove it. Informed pt.
[2018-06-04] MEDS: CADEXOMER IODINE 40 GM TUBE TP SCH ×3 (13:13→21:40)
[2018-06-04] MEDS: DAKINS QUARTER STRENGTH (0.125%) 480 ML BOTTLE TOP SCH ×4 (13:13→21:40)
[2018-06-04] MEDS: HYDROGEN PEROXIDE 480 ML BOTTLE TP SCH ×2 (13:13→21:40)
[2018-06-04 20:17] VITALS: BP 122/67
[2018-06-04] MEDS: ZINC SULFATE 220 MG CAPSULE GT SCH (20:50)
[2018-06-04] MEDS: ENOXAPARIN SODIUM 40 MG/0.4 ML DISP.SYRIN SQ SCH (20:50)
[2018-06-04] MEDS: ATORVASTATIN 10 MG TABLET GT SCH (21:40)
[2018-06-04] MEDS: POLYETHYLENE GLYCOL 3350 17 GM POWD.PACK GT SCH (21:40)
[2018-06-05] MEDS: IPRATROPIUM NEB FS 0.5 MG/2.5 ML AMPUL.NEB NEB SCH ×4 (00:39→19:23)
[2018-06-05] MEDS: VANCOMYCIN 1 GM in IV D5W 250ml IV SCH ×2 (01:00→13:00)
[2018-06-05] MEDS: MEROPENEM 1 G in IV NS 0.9% 100 ML IV SCH ×3 (01:00→17:00)
[2018-06-05] MEDS: SUCRALFATE 1 G/10 ML UDC GT SCH ×4 (07:30→21:51)
[2018-06-05 07:49] VITALS: BP 155/81
[2018-06-05] MEDS: HYDROCODONE/APAP 5/325MG 1 EACH TABLET GT SCH ×2 (09:01→20:40)
[2018-06-05] MEDS: ASCORBIC ACID 500 MG TABLET GT SCH ×2 (09:16→17:59)
[2018-06-05] MEDS: CALCIUM CARBONATE 500 MG TAB.CHEW GT SCH ×3 (09:16→17:59)
[2018-06-05] MEDS: ESCITALOPRAM OXALATE (10 MG) 10 MG TABLET GT SCH (09:16)
[2018-06-05] MEDS: BACLOFEN (10 MG) 10 MG TABLET GT SCH ×4 (09:16→20:38)
[2018-06-05] MEDS: ACIDOPHILUS/BULGARICUS 1 EACH TAB.CHEW GT SCH ×3 (09:16→17:59)
[2018-06-05] MEDS: CALCITRIOL 0.25 MCG CAPSULE PO SCH (09:16)
[2018-06-05] MEDS: MULTIVIT W/MINERALS 1 TAB TABLET GT SCH (09:16)
[2018-06-05] MEDS: PROSTAT (PYXIS) 30 ML UDC GT SCH ×3 (09:16→17:59)
[2018-06-05] MEDS: GABAPENTIN 300 MG CAPSULE GT SCH ×3 (09:16→17:59)
[2018-06-05] MEDS: FAMOTIDINE (20 MG) 20 MG TABLET GT SCH ×2 (09:16→20:40)
[2018-06-05] MEDS: CADEXOMER IODINE 40 GM TUBE TP SCH ×3 (09:40→21:51)
[2018-06-05] MEDS: DAKINS QUARTER STRENGTH (0.125%) 480 ML BOTTLE TOP SCH ×4 (09:40→21:51)
[2018-06-05] MEDS: HYDROGEN PEROXIDE 480 ML BOTTLE TP SCH ×2 (09:40→21:51)
[2018-06-05] MEDS: METHADONE HCL 10 MG TABLET GT SCH (10:00)
--- NOTE | 2018-06-05 15:15 | NUR ---
Dr Ugarte ordered to ILDA Vancomycin.
[2018-06-05] MEDS: ENOXAPARIN SODIUM 40 MG/0.4 ML DISP.SYRIN SQ SCH (20:40)
[2018-06-05] MEDS: ZINC SULFATE 220 MG CAPSULE GT SCH (20:40)
[2018-06-05 20:48] VITALS: BP 122/72
[2018-06-05] MEDS: ATORVASTATIN 10 MG TABLET GT SCH (21:51)
[2018-06-05] MEDS: POLYETHYLENE GLYCOL 3350 17 GM POWD.PACK GT SCH (21:51)
[2018-06-06] MEDS: IPRATROPIUM NEB FS 0.5 MG/2.5 ML AMPUL.NEB NEB SCH ×4 (00:49→19:26)
[2018-06-06] MEDS: MEROPENEM 1 G in IV NS 0.9% 100 ML IV SCH ×3 (01:00→17:00)
[2018-06-06] MEDS: SUCRALFATE 1 G/10 ML UDC GT SCH ×4 (07:30→21:33)
[2018-06-06 07:52] VITALS: BP 160/81
[2018-06-06] MEDS: ESCITALOPRAM OXALATE (10 MG) 10 MG TABLET GT SCH (08:48)
[2018-06-06] MEDS: ACIDOPHILUS/BULGARICUS 1 EACH TAB.CHEW GT SCH ×3 (08:48→16:43)
[2018-06-06] MEDS: BACLOFEN (10 MG) 10 MG TABLET GT SCH ×4 (08:48→20:50)
[2018-06-06] MEDS: ASCORBIC ACID 500 MG TABLET GT SCH ×2 (08:49→16:43)
[2018-06-06] MEDS: GABAPENTIN 300 MG CAPSULE GT SCH ×3 (08:49→16:43)
[2018-06-06] MEDS: CALCIUM CARBONATE 500 MG TAB.CHEW GT SCH ×3 (08:49→16:43)
[2018-06-06] MEDS: HYDROCODONE/APAP 5/325MG 1 EACH TABLET GT SCH ×2 (08:49→20:50)
[2018-06-06] MEDS: PROSTAT (PYXIS) 30 ML UDC GT SCH ×3 (08:49→16:43)
[2018-06-06] MEDS: CALCITRIOL 0.25 MCG CAPSULE PO SCH (08:49)
[2018-06-06] MEDS: METHADONE HCL 10 MG TABLET GT SCH (08:49)
[2018-06-06] MEDS: FAMOTIDINE (20 MG) 20 MG TABLET GT SCH ×2 (08:49→20:50)
[2018-06-06] MEDS: DAKINS QUARTER STRENGTH (0.125%) 480 ML BOTTLE TOP SCH ×4 (09:00→21:32)
[2018-06-06] MEDS: MULTIVIT W/MINERALS 1 TAB TABLET GT SCH (09:00)
[2018-06-06] MEDS: CADEXOMER IODINE 40 GM TUBE TP SCH ×3 (09:00→21:32)
[2018-06-06] MEDS: HYDROGEN PEROXIDE 480 ML BOTTLE TP SCH ×2 (09:00→21:32)
--- NOTE | 2018-06-06 19:30 | NUR ---
Seen by CARLI Valentin, she ordered CBC but lab unable to get specimen, CARLI Xiao said it is OK to draw it in in the morning.
[2018-06-06 20:15] VITALS: BP 128/74
--- NOTE | 2018-06-06 20:19 | NUR ---
RT NOTE PATIENT RECEIVED ON COOL AEROSOL @ 28%. PLACED PATIENT ON MECHANICAL VENTILATION PER NOC ORDER. CUFF CHECKED VIA SHIRT BANDER. VENT PLUGGED INTO RED OUTLET. ALARMS ON AND AUDIBLE. TX GIVEN, NO ADVERSE REACTIONS NOTED. SX DONE, MODERATE THICK YELLOW/WHITE SECRETIONS NOTED. HME REPLACED. WILL MONITOR T/O SHIFT. Addendum: 06/06/18 at 2020 by VERNELL CHRISTINE RT Amended: Links added.
[2018-06-06] MEDS: ZINC SULFATE 220 MG CAPSULE GT SCH (20:50)
[2018-06-06] MEDS: ENOXAPARIN SODIUM 40 MG/0.4 ML DISP.SYRIN SQ SCH (20:51)
[2018-06-06] MEDS: NYSTATIN/TRIAMCIN CREAM 15 GM TUBE TP SCH (21:33)
[2018-06-06] MEDS: ATORVASTATIN 10 MG TABLET GT SCH (21:34)
[2018-06-06] MEDS: POLYETHYLENE GLYCOL 3350 17 GM POWD.PACK GT SCH (21:34)
[2018-06-07] MEDS: MEROPENEM 1 G in IV NS 0.9% 100 ML IV SCH ×3 (01:04→17:00)
[2018-06-07] MEDS: IPRATROPIUM NEB FS 0.5 MG/2.5 ML AMPUL.NEB NEB SCH ×4 (01:22→19:51)
[2018-06-07] MEDS: HYDROCODONE/APAP 5/325MG 1 EACH TABLET GT PRN (03:24)
[2018-06-07 07:28] LABS: BASOPHILS % (AUTO) 0.2 % (0.0-2.0); EOSINOPHILS % (AUTO) 5.8 % (0.0-6.0); HEMATOCRIT 32 % (39-51); HEMOGLOBIN 9.8 g/dL (13.5-17.5); LYMPHOCYTES # (AUTO) 2.1 /CMM (0.8-4.8); LYMPHOCYTES % (AUTO) 22.1 % (20.0-44.0); MEAN CORPUSCULAR HGB CONC 31 g/dl (31.0-36.0); MEAN CORPUSCULAR VOLUME 78 fL (80-96); MONOCYTES # (AUTO) 0.6 /CMM (0.1-1.30); MONOCYTES % (AUTO) 6.3 % (2.0-12.0); NEUTROPHILS # (AUTO) 6.3 /CMM (1.8-8.9); NEUTROPHILS % (AUTO) 65.6 % (43.0-81.0); PLATELET COUNT (AUTO) 374 /CMM (150-450); RED BLOOD CELL COUNT(AUTO) 4.06 MIL/uL (4.5-6.0); WHITE BLOOD COUNT (AUTO) 9.6 K/uL (4.3-11.0)
[2018-06-07 07:51] VITALS: BP 115/67
[2018-06-07] MEDS: NYSTATIN/TRIAMCIN CREAM 15 GM TUBE TP SCH ×2 (09:00→20:35)
[2018-06-07] MEDS: HYDROGEN PEROXIDE 480 ML BOTTLE TP SCH ×2 (09:00→20:34)
[2018-06-07] MEDS: DAKINS QUARTER STRENGTH (0.125%) 480 ML BOTTLE TOP SCH ×4 (09:00→20:34)
[2018-06-07] MEDS: CADEXOMER IODINE 40 GM TUBE TP SCH ×3 (09:00→20:34)
[2018-06-07] MEDS: BACLOFEN (10 MG) 10 MG TABLET GT SCH ×4 (09:18→20:32)
[2018-06-07] MEDS: ESCITALOPRAM OXALATE (10 MG) 10 MG TABLET GT SCH (09:18)
[2018-06-07] MEDS: ACIDOPHILUS/BULGARICUS 1 EACH TAB.CHEW GT SCH ×3 (09:18→16:57)
[2018-06-07] MEDS: METHADONE HCL 10 MG TABLET GT SCH (09:18)
[2018-06-07] MEDS: CALCIUM CARBONATE 500 MG TAB.CHEW GT SCH ×3 (09:19→16:57)
[2018-06-07] MEDS: HYDROCODONE/APAP 5/325MG 1 EACH TABLET GT SCH ×2 (09:19→20:34)
[2018-06-07] MEDS: CALCITRIOL 0.25 MCG CAPSULE PO SCH (09:19)
[2018-06-07] MEDS: FAMOTIDINE (20 MG) 20 MG TABLET GT SCH ×2 (09:19→20:34)
[2018-06-07] MEDS: GABAPENTIN 300 MG CAPSULE GT SCH ×3 (09:19→16:57)
[2018-06-07] MEDS: MULTIVIT W/MINERALS 1 TAB TABLET GT SCH (09:19)
[2018-06-07] MEDS: PROSTAT (PYXIS) 30 ML UDC GT SCH ×3 (09:19→16:57)
[2018-06-07] MEDS: ASCORBIC ACID 500 MG TABLET GT SCH ×2 (09:19→16:57)
[2018-06-07] MEDS: SUCRALFATE 1 G/10 ML UDC GT SCH ×3 (11:30→20:32)
--- NOTE | 2018-06-07 16:20 | NUR ---
Dr. Rafiq López assessed progress of sacral, L buttock, L buttock abscess, and R buttock wound. He is pleased how wounds are responding with current treatment, at this time no changes recommended to continue with current order.
[2018-06-07] MEDS: METHOCARBAMOL (750MG) 750 MG TABLET GT PRN (16:57)
--- NOTE | 2018-06-07 19:30 | NUR ---
Seen by CARLI Hoffman no new order.
[2018-06-07 20:29] VITALS: BP 93/56
[2018-06-07] MEDS: ZINC SULFATE 220 MG CAPSULE GT SCH (20:34)
[2018-06-07] MEDS: ENOXAPARIN SODIUM 40 MG/0.4 ML DISP.SYRIN SQ SCH (20:34)
[2018-06-07] MEDS: MAGNESIUM HYDROXIDE 30 ML UDC GT PRN (21:17)
[2018-06-07] MEDS: ATORVASTATIN 10 MG TABLET GT SCH (21:17)
[2018-06-07] MEDS: POLYETHYLENE GLYCOL 3350 17 GM POWD.PACK GT SCH (21:17)
[2018-06-08] MEDS: IPRATROPIUM NEB FS 0.5 MG/2.5 ML AMPUL.NEB NEB SCH ×4 (01:14→20:00)
[2018-06-08] MEDS: METHOCARBAMOL (750MG) 750 MG TABLET GT PRN ×2 (03:48→23:24)
[2018-06-08] MEDS: SUCRALFATE 1 G/10 ML UDC GT SCH ×4 (05:30→21:12)
[2018-06-08 07:52] VITALS: BP 144/85
[2018-06-08] MEDS: NYSTATIN/TRIAMCIN CREAM 15 GM TUBE TP SCH ×2 (09:00→21:13)
[2018-06-08] MEDS: HYDROGEN PEROXIDE 480 ML BOTTLE TP SCH ×2 (09:00→21:13)
[2018-06-08] MEDS: DAKINS QUARTER STRENGTH (0.125%) 480 ML BOTTLE TOP SCH ×4 (09:00→21:13)
[2018-06-08] MEDS: CADEXOMER IODINE 40 GM TUBE TP SCH ×3 (09:00→21:13)
[2018-06-08] MEDS: METHADONE HCL 10 MG TABLET GT SCH (09:02)
[2018-06-08] MEDS: ESCITALOPRAM OXALATE (10 MG) 10 MG TABLET GT SCH (09:02)
[2018-06-08] MEDS: BACLOFEN (10 MG) 10 MG TABLET GT SCH ×4 (09:02→21:12)
[2018-06-08] MEDS: ACIDOPHILUS/BULGARICUS 1 EACH TAB.CHEW GT SCH ×3 (09:02→17:46)
[2018-06-08] MEDS: MULTIVIT W/MINERALS 1 TAB TABLET GT SCH (09:03)
[2018-06-08] MEDS: HYDROCODONE/APAP 5/325MG 1 EACH TABLET GT SCH ×2 (09:03→21:12)
[2018-06-08] MEDS: CALCITRIOL 0.25 MCG CAPSULE PO SCH (09:03)
[2018-06-08] MEDS: PROSTAT (PYXIS) 30 ML UDC GT SCH ×3 (09:03→17:46)
[2018-06-08] MEDS: FAMOTIDINE (20 MG) 20 MG TABLET GT SCH ×2 (09:03→21:12)
[2018-06-08] MEDS: ASCORBIC ACID 500 MG TABLET GT SCH ×2 (09:03→17:46)
[2018-06-08] MEDS: CALCIUM CARBONATE 500 MG TAB.CHEW GT SCH ×3 (09:03→17:46)
[2018-06-08] MEDS: GABAPENTIN 300 MG CAPSULE GT SCH ×3 (09:03→17:46)
--- NOTE | 2018-06-08 09:37 | NUR ---
RT PATIENT WAS RECEIVED ON VENT THEN PLACED ON COOL AEROSOL PER MD ORDER. HHN INLINE WAS GIVEN. PRN SUCTION WAS DONE. AMBUBAG AND SPARE TRACH AT BED SIDE. WILL CONTINUE TO MONITOR PATIENT. Addendum: 06/08/18 at 0940 by ROM ARAIZA RT Amended: Links added.
[2018-06-08 19:36] VITALS: BP 111/69
[2018-06-08] MEDS: ZINC SULFATE 220 MG CAPSULE GT SCH (21:12)
[2018-06-08] MEDS: POLYETHYLENE GLYCOL 3350 17 GM POWD.PACK GT SCH (21:13)
[2018-06-08] MEDS: ATORVASTATIN 10 MG TABLET GT SCH (21:13)
[2018-06-08] MEDS: ENOXAPARIN SODIUM 40 MG/0.4 ML DISP.SYRIN SQ SCH (21:13)
[2018-06-09] MEDS: IPRATROPIUM NEB FS 0.5 MG/2.5 ML AMPUL.NEB NEB SCH ×4 (01:17→19:47)
[2018-06-09] MEDS: SUCRALFATE 1 G/10 ML UDC GT SCH ×4 (05:49→20:39)
[2018-06-09 08:00] VITALS: BP 139/79
[2018-06-09] MEDS: CALCITRIOL 0.25 MCG CAPSULE PO SCH (09:00)
[2018-06-09] MEDS: ESCITALOPRAM OXALATE (10 MG) 10 MG TABLET GT SCH (09:00)
[2018-06-09] MEDS: CADEXOMER IODINE 40 GM TUBE TP SCH ×3 (09:00→20:40)
[2018-06-09] MEDS: MULTIVIT W/MINERALS 1 TAB TABLET GT SCH (09:00)
[2018-06-09] MEDS: PROSTAT (PYXIS) 30 ML UDC GT SCH ×3 (09:00→16:55)
[2018-06-09] MEDS: HYDROGEN PEROXIDE 480 ML BOTTLE TP SCH ×2 (09:00→20:40)
[2018-06-09] MEDS: NYSTATIN/TRIAMCIN CREAM 15 GM TUBE TP SCH ×2 (09:00→20:40)
[2018-06-09] MEDS: GABAPENTIN 300 MG CAPSULE GT SCH ×3 (09:00→16:55)
[2018-06-09] MEDS: CALCIUM CARBONATE 500 MG TAB.CHEW GT SCH ×3 (09:00→16:55)
[2018-06-09] MEDS: DAKINS QUARTER STRENGTH (0.125%) 480 ML BOTTLE TOP SCH ×4 (09:00→20:40)
[2018-06-09] MEDS: HYDROCODONE/APAP 5/325MG 1 EACH TABLET GT SCH ×2 (09:00→20:39)
[2018-06-09] MEDS: BACLOFEN (10 MG) 10 MG TABLET GT SCH ×4 (09:00→20:39)
[2018-06-09] MEDS: METHADONE HCL 10 MG TABLET GT SCH (09:00)
[2018-06-09] MEDS: FAMOTIDINE (20 MG) 20 MG TABLET GT SCH ×2 (09:00→20:39)
[2018-06-09] MEDS: ASCORBIC ACID 500 MG TABLET GT SCH ×2 (09:00→16:55)
[2018-06-09] MEDS: ACIDOPHILUS/BULGARICUS 1 EACH TAB.CHEW GT SCH ×3 (09:00→16:55)
[2018-06-09] MEDS: ZINC SULFATE 220 MG CAPSULE GT SCH (20:39)
[2018-06-09] MEDS: ENOXAPARIN SODIUM 40 MG/0.4 ML DISP.SYRIN SQ SCH (20:40)
[2018-06-09 20:42] VITALS: BP 143/78
[2018-06-09] MEDS: POLYETHYLENE GLYCOL 3350 17 GM POWD.PACK GT SCH (21:07)
[2018-06-09] MEDS: ATORVASTATIN 10 MG TABLET GT SCH (21:07)
[2018-06-10] MEDS: IPRATROPIUM NEB FS 0.5 MG/2.5 ML AMPUL.NEB NEB SCH ×4 (01:20→19:24)
[2018-06-10] MEDS: SUCRALFATE 1 G/10 ML UDC GT SCH ×4 (06:08→21:27)
[2018-06-10 08:16] VITALS: BP 163/84
[2018-06-10] MEDS: PROSTAT (PYXIS) 30 ML UDC GT SCH ×3 (08:30→16:50)
[2018-06-10] MEDS: ACIDOPHILUS/BULGARICUS 1 EACH TAB.CHEW GT SCH ×3 (08:30→16:50)
[2018-06-10] MEDS: BACLOFEN (10 MG) 10 MG TABLET GT SCH ×4 (08:30→21:27)
[2018-06-10] MEDS: FAMOTIDINE (20 MG) 20 MG TABLET GT SCH ×2 (08:30→21:28)
[2018-06-10] MEDS: ESCITALOPRAM OXALATE (10 MG) 10 MG TABLET GT SCH (08:30)
[2018-06-10] MEDS: MULTIVIT W/MINERALS 1 TAB TABLET GT SCH (08:30)
[2018-06-10] MEDS: METHADONE HCL 10 MG TABLET GT SCH (08:30)
[2018-06-10] MEDS: GABAPENTIN 300 MG CAPSULE GT SCH ×3 (08:30→16:50)
[2018-06-10] MEDS: ASCORBIC ACID 500 MG TABLET GT SCH ×2 (08:30→16:50)
[2018-06-10] MEDS: CALCITRIOL 0.25 MCG CAPSULE PO SCH (08:30)
[2018-06-10] MEDS: CALCIUM CARBONATE 500 MG TAB.CHEW GT SCH ×3 (08:30→16:50)
[2018-06-10] MEDS: NYSTATIN/TRIAMCIN CREAM 15 GM TUBE TP SCH ×2 (09:00→21:29)
[2018-06-10] MEDS: HYDROGEN PEROXIDE 480 ML BOTTLE TP SCH ×2 (09:00→21:29)
[2018-06-10] MEDS: DAKINS QUARTER STRENGTH (0.125%) 480 ML BOTTLE TOP SCH ×4 (09:00→21:28)
[2018-06-10] MEDS: CADEXOMER IODINE 40 GM TUBE TP SCH ×3 (09:00→21:29)
[2018-06-10] MEDS: HYDROCODONE/APAP 5/325MG 1 EACH TABLET GT SCH ×2 (09:00→21:28)
[2018-06-10 20:04] VITALS: BP 95/53
[2018-06-10] MEDS: ZINC SULFATE 220 MG CAPSULE GT SCH (21:28)
[2018-06-10] MEDS: ENOXAPARIN SODIUM 40 MG/0.4 ML DISP.SYRIN SQ SCH (21:28)
[2018-06-10] MEDS: POLYETHYLENE GLYCOL 3350 17 GM POWD.PACK GT SCH (21:29)
[2018-06-10] MEDS: ATORVASTATIN 10 MG TABLET GT SCH (21:29)
[2018-06-11] MEDS: IPRATROPIUM NEB FS 0.5 MG/2.5 ML AMPUL.NEB NEB SCH ×4 (01:22→19:25)
[2018-06-11] MEDS: SUCRALFATE 1 G/10 ML UDC GT SCH ×4 (06:37→21:05)
[2018-06-11] MEDS: MAGNESIUM HYDROXIDE 30 ML UDC GT PRN (06:37)
[2018-06-11] MEDS: ESCITALOPRAM OXALATE (10 MG) 10 MG TABLET GT SCH (08:40)
[2018-06-11] MEDS: BACLOFEN (10 MG) 10 MG TABLET GT SCH ×4 (08:40→21:05)
[2018-06-11] MEDS: ACIDOPHILUS/BULGARICUS 1 EACH TAB.CHEW GT SCH ×3 (08:40→16:34)
[2018-06-11] MEDS: HYDROCODONE/APAP 5/325MG 1 EACH TABLET GT SCH ×2 (08:41→21:06)
[2018-06-11] MEDS: ASCORBIC ACID 500 MG TABLET GT SCH ×2 (08:41→16:35)
[2018-06-11] MEDS: METHADONE HCL 10 MG TABLET GT SCH (08:41)
[2018-06-11] MEDS: MULTIVIT W/MINERALS 1 TAB TABLET GT SCH (08:41)
[2018-06-11] MEDS: GABAPENTIN 300 MG CAPSULE GT SCH ×3 (08:41→16:34)
[2018-06-11] MEDS: CALCITRIOL 0.25 MCG CAPSULE PO SCH (08:41)
[2018-06-11] MEDS: FAMOTIDINE (20 MG) 20 MG TABLET GT SCH ×2 (08:41→21:06)
[2018-06-11] MEDS: PROSTAT (PYXIS) 30 ML UDC GT SCH ×3 (08:41→16:34)
[2018-06-11] MEDS: CALCIUM CARBONATE 500 MG TAB.CHEW GT SCH ×3 (08:41→16:34)
[2018-06-11] MEDS: CADEXOMER IODINE 40 GM TUBE TP SCH ×3 (09:00→21:47)
[2018-06-11] MEDS: NYSTATIN/TRIAMCIN CREAM 15 GM TUBE TP SCH ×2 (09:00→21:47)
[2018-06-11] MEDS: HYDROGEN PEROXIDE 480 ML BOTTLE TP SCH ×2 (09:59→21:47)
[2018-06-11] MEDS: DAKINS QUARTER STRENGTH (0.125%) 480 ML BOTTLE TOP SCH ×4 (09:59→21:47)
[2018-06-11 13:25] VITALS: BP 126/71
[2018-06-11 20:11] VITALS: BP 144/83
[2018-06-11] MEDS: ZINC SULFATE 220 MG CAPSULE GT SCH (21:06)
[2018-06-11] MEDS: ENOXAPARIN SODIUM 40 MG/0.4 ML DISP.SYRIN SQ SCH (21:07)
[2018-06-11] MEDS: ATORVASTATIN 10 MG TABLET GT SCH (21:07)
[2018-06-11] MEDS: POLYETHYLENE GLYCOL 3350 17 GM POWD.PACK GT SCH (21:07)
[2018-06-12] MEDS: IPRATROPIUM NEB FS 0.5 MG/2.5 ML AMPUL.NEB NEB SCH ×4 (00:47→19:28)
[2018-06-12] MEDS: SUCRALFATE 1 G/10 ML UDC GT SCH ×4 (05:43→21:03)
[2018-06-12 07:44] VITALS: BP 133/70
[2018-06-12] MEDS: CADEXOMER IODINE 40 GM TUBE TP SCH ×3 (09:00→21:45)
[2018-06-12] MEDS: NYSTATIN/TRIAMCIN CREAM 15 GM TUBE TP SCH ×2 (09:00→21:45)
[2018-06-12] MEDS: HYDROGEN PEROXIDE 480 ML BOTTLE TP SCH ×2 (09:00→21:45)
[2018-06-12] MEDS: ACIDOPHILUS/BULGARICUS 1 EACH TAB.CHEW GT SCH ×3 (09:43→16:57)
[2018-06-12] MEDS: ESCITALOPRAM OXALATE (10 MG) 10 MG TABLET GT SCH (09:44)
[2018-06-12] MEDS: GABAPENTIN 300 MG CAPSULE GT SCH ×3 (09:44→16:57)
[2018-06-12] MEDS: FAMOTIDINE (20 MG) 20 MG TABLET GT SCH ×2 (09:44→21:04)
[2018-06-12] MEDS: BACLOFEN (10 MG) 10 MG TABLET GT SCH ×4 (09:44→21:03)
[2018-06-12] MEDS: METHADONE HCL 10 MG TABLET GT SCH ×2 (09:45→10:45)
[2018-06-12] MEDS: CALCIUM CARBONATE 500 MG TAB.CHEW GT SCH ×3 (09:46→16:57)
[2018-06-12] MEDS: PROSTAT (PYXIS) 30 ML UDC GT SCH ×3 (09:46→16:57)
[2018-06-12] MEDS: ASCORBIC ACID 500 MG TABLET GT SCH ×2 (09:46→16:57)
[2018-06-12] MEDS: MULTIVIT W/MINERALS 1 TAB TABLET GT SCH (09:46)
[2018-06-12] MEDS: CALCITRIOL 0.25 MCG CAPSULE PO SCH (09:46)
[2018-06-12] MEDS: HYDROCODONE/APAP 5/325MG 1 EACH TABLET GT SCH ×2 (10:00→21:04)
[2018-06-12] MEDS: DAKINS QUARTER STRENGTH (0.125%) 480 ML BOTTLE TOP SCH ×4 (10:30→21:45)
[2018-06-12 19:54] VITALS: BP 128/66
[2018-06-12] MEDS: POLYETHYLENE GLYCOL 3350 17 GM POWD.PACK GT SCH (21:04)
[2018-06-12] MEDS: ENOXAPARIN SODIUM 40 MG/0.4 ML DISP.SYRIN SQ SCH (21:04)
[2018-06-12] MEDS: ATORVASTATIN 10 MG TABLET GT SCH (21:04)
[2018-06-12] MEDS: ZINC SULFATE 220 MG CAPSULE GT SCH (21:04)
[2018-06-12] MEDS: HYDROGEL DRESSING 90 GM TUBE TP SCH ×2 (21:45)
[2018-06-13] MEDS: IPRATROPIUM NEB FS 0.5 MG/2.5 ML AMPUL.NEB NEB SCH ×4 (02:19→19:43)
[2018-06-13] MEDS: SUCRALFATE 1 G/10 ML UDC GT SCH ×4 (05:42→21:06)
[2018-06-13 07:56] VITALS: BP 134/73
[2018-06-13] MEDS: CALCIUM CARBONATE 500 MG TAB.CHEW GT SCH ×3 (08:57→17:18)
[2018-06-13] MEDS: HYDROCODONE/APAP 5/325MG 1 EACH TABLET GT SCH ×2 (08:57→21:07)
[2018-06-13] MEDS: FAMOTIDINE (20 MG) 20 MG TABLET GT SCH ×2 (08:57→21:07)
[2018-06-13] MEDS: BACLOFEN (10 MG) 10 MG TABLET GT SCH ×4 (08:57→21:06)
[2018-06-13] MEDS: GABAPENTIN 300 MG CAPSULE GT SCH ×3 (08:57→17:18)
[2018-06-13] MEDS: ACIDOPHILUS/BULGARICUS 1 EACH TAB.CHEW GT SCH ×3 (08:57→17:18)
[2018-06-13] MEDS: PROSTAT (PYXIS) 30 ML UDC GT SCH ×3 (08:57→17:18)
[2018-06-13] MEDS: ASCORBIC ACID 500 MG TABLET GT SCH ×2 (08:57→17:15)
[2018-06-13] MEDS: METHADONE HCL 10 MG TABLET GT SCH (08:57)
[2018-06-13] MEDS: CALCITRIOL 0.25 MCG CAPSULE PO SCH (08:57)
[2018-06-13] MEDS: MULTIVIT W/MINERALS 1 TAB TABLET GT SCH (08:57)
[2018-06-13] MEDS: ESCITALOPRAM OXALATE (10 MG) 10 MG TABLET GT SCH (08:57)
[2018-06-13] MEDS: HYDROGEN PEROXIDE 480 ML BOTTLE TP SCH ×2 (09:00→21:46)
[2018-06-13] MEDS: NYSTATIN/TRIAMCIN CREAM 15 GM TUBE TP SCH ×2 (09:00→21:46)
[2018-06-13] MEDS: CADEXOMER IODINE 40 GM TUBE TP SCH ×3 (09:00→21:46)
[2018-06-13] MEDS: DAKINS QUARTER STRENGTH (0.125%) 480 ML BOTTLE TOP SCH ×4 (09:00→21:46)
[2018-06-13] MEDS: HYDROGEL DRESSING 90 GM TUBE TP SCH ×4 (09:00→21:46)
[2018-06-13 20:26] VITALS: BP 101/63
[2018-06-13] MEDS: ZINC SULFATE 220 MG CAPSULE GT SCH (21:07)
[2018-06-13] MEDS: ENOXAPARIN SODIUM 40 MG/0.4 ML DISP.SYRIN SQ SCH (21:07)
[2018-06-13] MEDS: POLYETHYLENE GLYCOL 3350 17 GM POWD.PACK GT SCH (21:08)
[2018-06-13] MEDS: ATORVASTATIN 10 MG TABLET GT SCH (21:08)
[2018-06-14] MEDS: IPRATROPIUM NEB FS 0.5 MG/2.5 ML AMPUL.NEB NEB SCH ×4 (01:32→19:49)
[2018-06-14] MEDS: SUCRALFATE 1 G/10 ML UDC GT SCH ×4 (06:01→20:30)
[2018-06-14 07:42] VITALS: BP 131/74
[2018-06-14] MEDS: ACIDOPHILUS/BULGARICUS 1 EACH TAB.CHEW GT SCH ×3 (08:27→16:25)
[2018-06-14] MEDS: ESCITALOPRAM OXALATE (10 MG) 10 MG TABLET GT SCH (08:27)
[2018-06-14] MEDS: GABAPENTIN 300 MG CAPSULE GT SCH ×3 (08:28→16:26)
[2018-06-14] MEDS: METHADONE HCL 10 MG TABLET GT SCH (08:28)
[2018-06-14] MEDS: MULTIVIT W/MINERALS 1 TAB TABLET GT SCH (08:29)
[2018-06-14] MEDS: ASCORBIC ACID 500 MG TABLET GT SCH ×2 (08:29→16:26)
[2018-06-14] MEDS: PROSTAT (PYXIS) 30 ML UDC GT SCH ×3 (08:29→16:26)
[2018-06-14] MEDS: CALCIUM CARBONATE 500 MG TAB.CHEW GT SCH ×3 (08:29→16:26)
[2018-06-14] MEDS: HYDROCODONE/APAP 5/325MG 1 EACH TABLET GT SCH ×2 (08:29→21:46)
[2018-06-14] MEDS: FAMOTIDINE (20 MG) 20 MG TABLET GT SCH ×2 (08:29→21:47)
[2018-06-14] MEDS: CALCITRIOL 0.25 MCG CAPSULE PO SCH (08:29)
[2018-06-14] MEDS: NYSTATIN/TRIAMCIN CREAM 15 GM TUBE TP SCH ×2 (09:00→21:48)
[2018-06-14] MEDS: HYDROGEN PEROXIDE 480 ML BOTTLE TP SCH ×2 (09:00→21:48)
[2018-06-14] MEDS: CADEXOMER IODINE 40 GM TUBE TP SCH ×3 (09:00→21:48)
[2018-06-14] MEDS: HYDROGEL DRESSING 90 GM TUBE TP SCH ×4 (09:00→21:48)
[2018-06-14] MEDS: DAKINS QUARTER STRENGTH (0.125%) 480 ML BOTTLE TOP SCH ×4 (09:00→21:48)
[2018-06-14] MEDS: BACLOFEN (10 MG) 10 MG TABLET GT SCH ×4 (09:01→21:46)
[2018-06-14] MEDS: HYDROCODONE/APAP 5/325MG 1 EACH TABLET GT PRN (16:26)
[2018-06-14 21:05] VITALS: BP 140/71
[2018-06-14] MEDS: ZINC SULFATE 220 MG CAPSULE GT SCH (21:47)
[2018-06-14] MEDS: ENOXAPARIN SODIUM 40 MG/0.4 ML DISP.SYRIN SQ SCH (21:48)
[2018-06-14] MEDS: ATORVASTATIN 10 MG TABLET GT SCH (21:49)
[2018-06-14] MEDS: POLYETHYLENE GLYCOL 3350 17 GM POWD.PACK GT SCH (21:49)
[2018-06-15] MEDS: IPRATROPIUM NEB FS 0.5 MG/2.5 ML AMPUL.NEB NEB SCH ×4 (01:27→20:00)
[2018-06-15] MEDS: HYDROCODONE/APAP 5/325MG 1 EACH TABLET GT PRN (02:09)
[2018-06-15] MEDS: SUCRALFATE 1 G/10 ML UDC GT SCH ×4 (06:48→21:29)
[2018-06-15 07:48] VITALS: BP 166/82
[2018-06-15] MEDS: HYDROGEL DRESSING 90 GM TUBE TP SCH ×4 (09:00→21:56)
[2018-06-15] MEDS: HYDROGEN PEROXIDE 480 ML BOTTLE TP SCH ×2 (09:00→21:57)
[2018-06-15] MEDS: NYSTATIN/TRIAMCIN CREAM 15 GM TUBE TP SCH ×2 (09:00→21:57)
[2018-06-15] MEDS: CADEXOMER IODINE 40 GM TUBE TP SCH ×3 (09:00→21:57)
[2018-06-15] MEDS: DAKINS QUARTER STRENGTH (0.125%) 480 ML BOTTLE TOP SCH ×4 (09:00→21:56)
[2018-06-15] MEDS: ACIDOPHILUS/BULGARICUS 1 EACH TAB.CHEW GT SCH ×3 (09:25→17:43)
[2018-06-15] MEDS: ESCITALOPRAM OXALATE (10 MG) 10 MG TABLET GT SCH (09:25)
[2018-06-15] MEDS: BACLOFEN (10 MG) 10 MG TABLET GT SCH ×4 (09:25→21:34)
[2018-06-15] MEDS: FAMOTIDINE (20 MG) 20 MG TABLET GT SCH ×2 (09:26→21:34)
[2018-06-15] MEDS: CALCITRIOL 0.25 MCG CAPSULE PO SCH (09:26)
[2018-06-15] MEDS: HYDROCODONE/APAP 5/325MG 1 EACH TABLET GT SCH ×2 (09:26→21:34)
[2018-06-15] MEDS: ASCORBIC ACID 500 MG TABLET GT SCH ×2 (09:26→17:43)
[2018-06-15] MEDS: MULTIVIT W/MINERALS 1 TAB TABLET GT SCH (09:26)
[2018-06-15] MEDS: METHADONE HCL 10 MG TABLET GT SCH (09:26)
[2018-06-15] MEDS: CALCIUM CARBONATE 500 MG TAB.CHEW GT SCH ×3 (09:26→17:43)
[2018-06-15] MEDS: GABAPENTIN 300 MG CAPSULE GT SCH ×3 (09:26→17:43)
[2018-06-15] MEDS: PROSTAT (PYXIS) 30 ML UDC GT SCH ×3 (09:26→17:43)
--- NOTE | 2018-06-15 09:58 | NUR ---
IDT mtg was held today. Sister in [facility] Vilma were not able to attend. Dr. Ugarte and the interdisciplinary team discussed the current plan of care in detail. Current orders as well as treatments and medications were reviewed. Charge nurse Priya inquired about discontinuation of isolation. It will be checked with infection control nurse. Resident is being transported to Dr. Vaca office for a dentist appt to care for a cavitity.
[2018-06-15 19:39] VITALS: BP 120/77
[2018-06-15] MEDS: ENOXAPARIN SODIUM 40 MG/0.4 ML DISP.SYRIN SQ SCH (21:34)
[2018-06-15] MEDS: ZINC SULFATE 220 MG CAPSULE GT SCH (21:34)
[2018-06-15] MEDS: POLYETHYLENE GLYCOL 3350 17 GM POWD.PACK GT SCH (21:35)
[2018-06-15] MEDS: ATORVASTATIN 10 MG TABLET GT SCH (21:35)
[2018-06-16] MEDS: IPRATROPIUM NEB FS 0.5 MG/2.5 ML AMPUL.NEB NEB SCH ×4 (01:13→20:00)
[2018-06-16] MEDS: METHOCARBAMOL (750MG) 750 MG TABLET GT PRN (04:11)
[2018-06-16] MEDS: SUCRALFATE 1 G/10 ML UDC GT SCH ×4 (06:00→19:46)
[2018-06-16 07:52] VITALS: BP 125/69
[2018-06-16] MEDS: BACLOFEN (10 MG) 10 MG TABLET GT SCH ×4 (08:13→21:39)
[2018-06-16] MEDS: ESCITALOPRAM OXALATE (10 MG) 10 MG TABLET GT SCH (08:13)
[2018-06-16] MEDS: ACIDOPHILUS/BULGARICUS 1 EACH TAB.CHEW GT SCH ×3 (08:13→16:58)
[2018-06-16] MEDS: HYDROCODONE/APAP 5/325MG 1 EACH TABLET GT SCH ×2 (08:14→21:40)
[2018-06-16] MEDS: METHADONE HCL 10 MG TABLET GT SCH (08:14)
[2018-06-16] MEDS: MULTIVIT W/MINERALS 1 TAB TABLET GT SCH (08:14)
[2018-06-16] MEDS: GABAPENTIN 300 MG CAPSULE GT SCH ×3 (08:14→16:58)
[2018-06-16] MEDS: PROSTAT (PYXIS) 30 ML UDC GT SCH ×3 (08:14→16:58)
[2018-06-16] MEDS: FAMOTIDINE (20 MG) 20 MG TABLET GT SCH ×2 (08:14→21:40)
[2018-06-16] MEDS: CALCIUM CARBONATE 500 MG TAB.CHEW GT SCH ×3 (08:14→16:58)
[2018-06-16] MEDS: CALCITRIOL 0.25 MCG CAPSULE PO SCH (08:14)
[2018-06-16] MEDS: ASCORBIC ACID 500 MG TABLET GT SCH ×2 (08:14→16:59)
[2018-06-16] MEDS: HYDROGEL DRESSING 90 GM TUBE TP SCH ×4 (09:00→21:57)
[2018-06-16] MEDS: HYDROGEN PEROXIDE 480 ML BOTTLE TP SCH ×2 (09:00→21:57)
[2018-06-16] MEDS: DAKINS QUARTER STRENGTH (0.125%) 480 ML BOTTLE TOP SCH ×4 (09:00→21:57)
[2018-06-16] MEDS: NYSTATIN/TRIAMCIN CREAM 15 GM TUBE TP SCH ×2 (09:00→21:57)
[2018-06-16] MEDS: CADEXOMER IODINE 40 GM TUBE TP SCH ×3 (09:00→21:57)
[2018-06-16 19:49] VITALS: BP 121/71
[2018-06-16] MEDS: ENOXAPARIN SODIUM 40 MG/0.4 ML DISP.SYRIN SQ SCH (21:40)
[2018-06-16] MEDS: ZINC SULFATE 220 MG CAPSULE GT SCH (21:40)
[2018-06-16] MEDS: ATORVASTATIN 10 MG TABLET GT SCH (21:40)
[2018-06-16] MEDS: POLYETHYLENE GLYCOL 3350 17 GM POWD.PACK GT SCH (21:40)
[2018-06-17] MEDS: IPRATROPIUM NEB FS 0.5 MG/2.5 ML AMPUL.NEB NEB SCH ×4 (01:24→19:27)
[2018-06-17] MEDS: HYDROCODONE/APAP 5/325MG 1 EACH TABLET GT PRN (02:32)
[2018-06-17] MEDS: SUCRALFATE 1 G/10 ML UDC GT SCH ×4 (06:12→21:12)
[2018-06-17 07:50] VITALS: BP 141/70
[2018-06-17] MEDS: BACLOFEN (10 MG) 10 MG TABLET GT SCH ×4 (08:32→21:13)
[2018-06-17] MEDS: ESCITALOPRAM OXALATE (10 MG) 10 MG TABLET GT SCH (08:32)
[2018-06-17] MEDS: ACIDOPHILUS/BULGARICUS 1 EACH TAB.CHEW GT SCH ×3 (08:32→17:30)
[2018-06-17] MEDS: CALCITRIOL 0.25 MCG CAPSULE PO SCH (08:33)
[2018-06-17] MEDS: PROSTAT (PYXIS) 30 ML UDC GT SCH ×3 (08:33→17:31)
[2018-06-17] MEDS: METHADONE HCL 10 MG TABLET GT SCH (08:33)
[2018-06-17] MEDS: ASCORBIC ACID 500 MG TABLET GT SCH ×2 (08:33→17:31)
[2018-06-17] MEDS: CALCIUM CARBONATE 500 MG TAB.CHEW GT SCH ×3 (08:33→17:31)
[2018-06-17] MEDS: FAMOTIDINE (20 MG) 20 MG TABLET GT SCH ×2 (08:33→21:14)
[2018-06-17] MEDS: MULTIVIT W/MINERALS 1 TAB TABLET GT SCH (08:33)
[2018-06-17] MEDS: GABAPENTIN 300 MG CAPSULE GT SCH ×2 (08:33→12:17)
[2018-06-17] MEDS: CADEXOMER IODINE 40 GM TUBE TP SCH ×2 (09:00)
[2018-06-17] MEDS: NYSTATIN/TRIAMCIN CREAM 15 GM TUBE TP SCH ×2 (09:00→21:16)
[2018-06-17] MEDS: HYDROCODONE/APAP 5/325MG 1 EACH TABLET GT SCH ×2 (09:00→21:14)
[2018-06-17] MEDS: HYDROGEN PEROXIDE 480 ML BOTTLE TP SCH ×2 (09:00→21:16)
[2018-06-17] MEDS: DAKINS QUARTER STRENGTH (0.125%) 480 ML BOTTLE TOP SCH ×2 (09:00)
[2018-06-17] MEDS: HYDROGEL DRESSING 90 GM TUBE TP SCH ×4 (09:00→21:16)
--- NOTE | 2018-06-17 10:45 | NUR ---
Neurologist Dr. Ramirez saw patient, he discontinued Gabapentin, he also made patient aware that he will discontinue his gabapentin. Patient has no further episodes of seizure activities noted at this time. New order noted and carried out.
[2018-06-17 19:59] VITALS: BP 128/81
--- NOTE | 2018-06-17 20:12 | NUR ---
RT PATIENT REC'D ON COOL AEROSOL @ 28%. PLACED PATIENT ON MECHANICAL VENTILATION PER MD ORDER. CUFF CHECKED VIA LEVELER. VENT PLUGGED INTO RED OUTLET. NO RESPIRATORY DISTRESS NOTED AT THIS TIME. ALARMS ON AND AUDIBLE. TX GIVEN, NO ADVERSE REACTIONS NOTED. SX DONE, SMALL THICK YELLOW/WHITE SECRETIONS NOTED. WILL CONTINUE TO MONITOR. Addendum: 06/17/18 at 2014 by BUFFY SHERWOOD RT Amended: Links added.
[2018-06-17] MEDS: ZINC SULFATE 220 MG CAPSULE GT SCH (21:14)
[2018-06-17] MEDS: ENOXAPARIN SODIUM 40 MG/0.4 ML DISP.SYRIN SQ SCH (21:15)
[2018-06-17] MEDS: POLYETHYLENE GLYCOL 3350 17 GM POWD.PACK GT SCH (21:46)
[2018-06-17] MEDS: ATORVASTATIN 10 MG TABLET GT SCH (21:46)
[2018-06-18] MEDS: IPRATROPIUM NEB FS 0.5 MG/2.5 ML AMPUL.NEB NEB SCH ×4 (01:33→19:33)
[2018-06-18] MEDS: SUCRALFATE 1 G/10 ML UDC GT SCH ×4 (05:38→21:11)
[2018-06-18 07:56] VITALS: BP 158/82
[2018-06-18] MEDS: BACLOFEN (10 MG) 10 MG TABLET GT SCH ×4 (08:28→21:11)
[2018-06-18] MEDS: ESCITALOPRAM OXALATE (10 MG) 10 MG TABLET GT SCH (08:28)
[2018-06-18] MEDS: ACIDOPHILUS/BULGARICUS 1 EACH TAB.CHEW GT SCH ×3 (08:28→16:59)
[2018-06-18] MEDS: PROSTAT (PYXIS) 30 ML UDC GT SCH ×3 (08:29→16:59)
[2018-06-18] MEDS: CALCITRIOL 0.25 MCG CAPSULE PO SCH (08:29)
[2018-06-18] MEDS: ASCORBIC ACID 500 MG TABLET GT SCH ×2 (08:29→16:59)
[2018-06-18] MEDS: METHADONE HCL 10 MG TABLET GT SCH (08:29)
[2018-06-18] MEDS: CALCIUM CARBONATE 500 MG TAB.CHEW GT SCH ×3 (08:29→16:59)
[2018-06-18] MEDS: MULTIVIT W/MINERALS 1 TAB TABLET GT SCH (08:29)
[2018-06-18] MEDS: FAMOTIDINE (20 MG) 20 MG TABLET GT SCH ×2 (08:29→21:12)
--- NOTE | 2018-06-18 09:50 | NUR ---
Informed Dr Ugarte that pt is going to the dental office today for a follow-up appointment and he will be accompanied by an RT. Dr Ugarte said it is fine. Also informed Vilma Marley.
[2018-06-18] MEDS: HYDROCODONE/APAP 5/325MG 1 EACH TABLET GT SCH ×2 (10:00→21:12)
[2018-06-18] MEDS: HYDROGEN PEROXIDE 480 ML BOTTLE TP SCH ×2 (10:30→21:14)
[2018-06-18] MEDS: CADEXOMER IODINE 40 GM TUBE TP SCH (10:30)
[2018-06-18] MEDS: NYSTATIN/TRIAMCIN CREAM 15 GM TUBE TP SCH ×2 (10:30→21:15)
[2018-06-18] MEDS: HYDROGEL DRESSING 90 GM TUBE TP SCH ×4 (10:30→21:14)
--- NOTE | 2018-06-18 11:22 | NUR ---
SW faciliated a facetime video with resident's younger sister Janiya. Sister showed resident her house and they communicated for about 5 minutes. Resident was very happy. SW encouraged sister to send resident more videos of the family. SW will facilitate contact with resident's family member more often.
--- NOTE | 2018-06-18 12:01 | NUR ---
RT Integration Developer Janiya said she called [facility] to request for an RT. She was told that transportation was canceled. Referred to social media director Pricila who called [facility] to confirm transportation for today. She also requested them to send an RT to go with the pt and she was told that they will send an RT. Informed Dr Ugarte that [facility] RT will not go with pt and that the [facility] RT is going with him. He said as long as there is an RT going with the pt he is fine with it. Addendum: 06/18/18 at 1354 by WINIFRED GARCÍA RN [facility] reference number [id number]
[2018-06-18] MEDS: HYDROCODONE/APAP 5/325MG 1 EACH TABLET GT PRN (15:00)
[2018-06-18 20:16] VITALS: BP 136/76
--- NOTE | 2018-06-18 20:18 | NUR ---
RT PATIENT REC'D ON COOL AEROSOL @ 28%. PLACED PATIENT ON MECHANICAL VENTILATION PER MD ORDER. CUFF CHECKED VIA PUBLIC HEALTH DIRECTOR. VENT PLUGGED INTO RED OUTLET. NO RESPIRATORY DISTRESS NOTED AT THIS TIME. ALARMS ON AND AUDIBLE. TX GIVEN, NO ADVERSE REACTIONS NOTED. SX DONE, MODERATE THICK YELLOW/WHITE SECRETIONS NOTED. WILL CONTINUE TO MONITOR. Addendum: 06/18/18 at 2019 by BUFFY SHERWOOD RT Amended: Links added.
[2018-06-18] MEDS: ZINC SULFATE 220 MG CAPSULE GT SCH (21:13)
[2018-06-18] MEDS: ENOXAPARIN SODIUM 40 MG/0.4 ML DISP.SYRIN SQ SCH (21:13)
[2018-06-18] MEDS: DAKINS QUARTER STRENGTH (0.125%) 480 ML BOTTLE TOP SCH ×2 (21:14)
[2018-06-18] MEDS: ATORVASTATIN 10 MG TABLET GT SCH (21:15)
[2018-06-18] MEDS: POLYETHYLENE GLYCOL 3350 17 GM POWD.PACK GT SCH (21:15)
[2018-06-19] MEDS: IPRATROPIUM NEB FS 0.5 MG/2.5 ML AMPUL.NEB NEB SCH ×4 (01:40→19:16)
[2018-06-19] MEDS: SUCRALFATE 1 G/10 ML UDC GT SCH ×4 (05:26→21:13)
[2018-06-19 07:37] VITALS: BP 144/83
[2018-06-19] MEDS: HYDROCODONE/APAP 5/325MG 1 EACH TABLET GT SCH ×2 (09:22→21:14)
[2018-06-19] MEDS: CALCITRIOL 0.25 MCG CAPSULE PO SCH (09:26)
[2018-06-19] MEDS: PROSTAT (PYXIS) 30 ML UDC GT SCH ×3 (09:26→17:45)
[2018-06-19] MEDS: ASCORBIC ACID 500 MG TABLET GT SCH ×2 (09:26→17:45)
[2018-06-19] MEDS: ESCITALOPRAM OXALATE (10 MG) 10 MG TABLET GT SCH (09:26)
[2018-06-19] MEDS: BACLOFEN (10 MG) 10 MG TABLET GT SCH ×4 (09:26→21:13)
[2018-06-19] MEDS: ACIDOPHILUS/BULGARICUS 1 EACH TAB.CHEW GT SCH ×3 (09:26→17:45)
[2018-06-19] MEDS: CALCIUM CARBONATE 500 MG TAB.CHEW GT SCH ×3 (09:26→17:45)
[2018-06-19] MEDS: FAMOTIDINE (20 MG) 20 MG TABLET GT SCH ×2 (09:26→21:14)
[2018-06-19] MEDS: MULTIVIT W/MINERALS 1 TAB TABLET GT SCH (09:28)
[2018-06-19] MEDS: DAKINS QUARTER STRENGTH (0.125%) 480 ML BOTTLE TOP SCH ×4 (10:00→21:15)
[2018-06-19] MEDS: NYSTATIN/TRIAMCIN CREAM 15 GM TUBE TP SCH ×2 (10:00→21:15)
[2018-06-19] MEDS: HYDROGEN PEROXIDE 480 ML BOTTLE TP SCH ×2 (10:00→21:15)
[2018-06-19] MEDS: CADEXOMER IODINE 40 GM TUBE TP SCH (10:00)
[2018-06-19] MEDS: METHADONE HCL 10 MG TABLET GT SCH (10:00)
[2018-06-19] MEDS: HYDROGEL DRESSING 90 GM TUBE TP SCH ×4 (10:00→21:15)
--- NOTE | 2018-06-19 14:07 | NUR ---
RAVI called oral surgery doctor Bk Montiel to schedule an appointment for patient. As per Dr. Vaca, pt. needs to extract tooth number 3 ( upper left). Dr. Montiel only has appointment on July 04. RAVI asked if he could see pt. earlier because of his pain. will check and let SW know.
--- NOTE | 2018-06-19 15:10 | NUR ---
particleboard factory worker Pricila said to call Connie at the office of Dr Montiel to answer some questions regarding the pt. Dr Montiel will see pt tomorrow at 2 pm. Called Connie , but she was with a pt. Left message with Lindy.
--- NOTE | 2018-06-19 15:17 | NUR ---
[facility]
--- NOTE | 2018-06-19 16:03 | NUR ---
Called Connie at Dr Montiel' office again. She was still with patients. Lindy said Connie will call back first thing tomorrow morning.
--- NOTE | 2018-06-19 18:52 | NUR ---
Called pt's [id number] Vilma Marley and informed her that tooth filling was not done yesterday and a tooth extraction has to be done instead. Dr Montiel will see pt tomorrow for tooth extraction.
[2018-06-19 20:27] VITALS: BP 124/72
[2018-06-19] MEDS: ZINC SULFATE 220 MG CAPSULE GT SCH (21:15)
[2018-06-19] MEDS: ATORVASTATIN 10 MG TABLET GT SCH (21:15)
[2018-06-19] MEDS: POLYETHYLENE GLYCOL 3350 17 GM POWD.PACK GT SCH (21:16)
[2018-06-20] MEDS: IPRATROPIUM NEB FS 0.5 MG/2.5 ML AMPUL.NEB NEB SCH ×4 (00:53→19:30)
[2018-06-20] MEDS: SUCRALFATE 1 G/10 ML UDC GT SCH ×4 (06:18→21:22)
[2018-06-20 08:09] VITALS: BP 128/54
[2018-06-20] MEDS: ASCORBIC ACID 500 MG TABLET GT SCH ×2 (08:48→16:52)
[2018-06-20] MEDS: ESCITALOPRAM OXALATE (10 MG) 10 MG TABLET GT SCH (08:48)
[2018-06-20] MEDS: METHADONE HCL 10 MG TABLET GT SCH (08:48)
[2018-06-20] MEDS: ACIDOPHILUS/BULGARICUS 1 EACH TAB.CHEW GT SCH ×3 (08:48→16:52)
[2018-06-20] MEDS: CALCIUM CARBONATE 500 MG TAB.CHEW GT SCH ×3 (08:48→16:52)
[2018-06-20] MEDS: BACLOFEN (10 MG) 10 MG TABLET GT SCH ×4 (08:48→21:22)
[2018-06-20] MEDS: PROSTAT (PYXIS) 30 ML UDC GT SCH ×3 (08:48→16:52)
[2018-06-20] MEDS: MULTIVIT W/MINERALS 1 TAB TABLET GT SCH (08:48)
[2018-06-20] MEDS: CALCITRIOL 0.25 MCG CAPSULE PO SCH (08:48)
[2018-06-20] MEDS: FAMOTIDINE (20 MG) 20 MG TABLET GT SCH ×2 (08:48→21:23)
[2018-06-20] MEDS: HYDROCODONE/APAP 5/325MG 1 EACH TABLET GT SCH ×2 (10:00→21:23)
[2018-06-20] MEDS: HYDROGEL DRESSING 90 GM TUBE TP SCH ×4 (10:30→21:55)
[2018-06-20] MEDS: HYDROGEN PEROXIDE 480 ML BOTTLE TP SCH ×2 (10:30→21:55)
[2018-06-20] MEDS: NYSTATIN/TRIAMCIN CREAM 15 GM TUBE TP SCH ×2 (10:30→21:55)
[2018-06-20] MEDS: DAKINS QUARTER STRENGTH (0.125%) 480 ML BOTTLE TOP SCH ×4 (10:30→21:55)
--- NOTE | 2018-06-20 15:00 | NUR ---
Tooth extraction #[address] Montiel, patient tolerated procedure well. Awake and verbally responsive. Oral and tracheal suctioning done after the procedure. Will monitor for bleeding.
--- NOTE | 2018-06-20 16:22 | NUR ---
Dr. Montiel assistant county attorney called RAVI and informed her that surgery went well and requested as per doctor, pt should not suck on a straw today and tomorrow. RAVI informed charge nurse Priya.
--- NOTE | 2018-06-20 16:25 | NUR ---
Received a call from Dr. Montiel staff advising not to let patient drink with a straw today and until tomorrow to prevent bleeding. Endorsed.
[2018-06-20] MEDS: HYDROCODONE/APAP 5/325MG 1 EACH TABLET GT PRN (17:28)
--- NOTE | 2018-06-20 18:00 | NUR ---
Notified Dr. Walker that patient's nephrostomy tube wire is loose with 3 cm. of the wire is out, unable to advance. Flushed tube with NS, patent with no resistance, but noted leaking in the site. Secured with tape and dressing. Dr. Walker ordered to have nephrostomy tube replaced by IR. Spoke with Arnel from radiology department said radiologist are gone for the day and will probably do the procedure tomorrow. Spoke with Vilma, sister in law and made aware the nephrostomy tube replacement was ordered and maybe it will be done tomorrow. Appreciated the call.
[2018-06-20 20:17] VITALS: BP 142/97
--- NOTE | 2018-06-20 20:40 | NUR ---
PATIENT RECEIVED ON COOL AEROSOL. PLACED PATIENT ON MECHANICAL VENTILATION PER NOC ORDER. PT IS AWAKE AND ALERT. CUFF CHECKED VIA FRAMING CONSULTANT. AMBU BAG/BACK UP TRACH @ BEDSIDE. VENT PLUGGED INTO RED OUTLET. ALARMS ON AND AUDIBLE. TX GIVEN, NO ADVERSE REACTIONS NOTED. SX DONE, MODERATE THICK YELLOW SECRETIONS NOTED. PATIENT STABLE. WILL MONITOR.
[2018-06-20] MEDS ORDERED: ENOXAPARIN SODIUM 40 MG/0.4 ML DISP.SYRIN SQ SCH (21:00)
[2018-06-20] MEDS: ZINC SULFATE 220 MG CAPSULE GT SCH (21:23)
[2018-06-20] MEDS: ATORVASTATIN 10 MG TABLET GT SCH (21:23)
[2018-06-20] MEDS: POLYETHYLENE GLYCOL 3350 17 GM POWD.PACK GT SCH (21:23)
--- NOTE | 2018-06-20 22:30 | NUR ---
Telephone consent obtained from Vilma (sister) regarding the doctors order of nephrostomy tube replacement
[2018-06-21] MEDS: IPRATROPIUM NEB FS 0.5 MG/2.5 ML AMPUL.NEB NEB SCH ×4 (02:05→19:30)
[2018-06-21] MEDS: SUCRALFATE 1 G/10 ML UDC GT SCH ×4 (05:49→20:35)
--- NOTE | 2018-06-21 07:02 | NUR ---
ORDER OF NEPHROSTOMY TUBE REPLACEMENT FAXED TO ADMITTING C/O [facility], WILL CONTINUE TO FOLLOW UP
[2018-06-21 07:57] VITALS: BP 126/79
--- NOTE | 2018-06-21 08:12 | NUR ---
Spoke with Jeanette from Radiology to follow-up the time when they will do procedure (nephrostomy tube replacement), said she will speak with radiologist and will call back. Meanwhile Admitting department created new account for the procedure.
--- NOTE | 2018-06-21 08:23 | NUR ---
Received a call from Jeanette from Radiology that per Dr. Zapata, radiologist he would like to do a CT scan first to evaluate placement of the tube. CT of the abdomen without contrast ordered.
--- NOTE | 2018-06-21 08:29 | NUR ---
RT Pt placed back on cool aerosol per md day order. Cuff deflated and pt resting comfortably. Bmv @ hob. No repsiratory distress noted @ this time will continue to monitor.
[2018-06-21] MEDS: FAMOTIDINE (20 MG) 20 MG TABLET GT SCH ×2 (09:00→21:46)
[2018-06-21] MEDS: MULTIVIT W/MINERALS 1 TAB TABLET GT SCH (09:00)
[2018-06-21] MEDS: ASCORBIC ACID 500 MG TABLET GT SCH ×2 (09:00→17:14)
[2018-06-21] MEDS: HYDROCODONE/APAP 5/325MG 1 EACH TABLET GT SCH ×2 (09:00→21:46)
[2018-06-21] MEDS: METHADONE HCL 10 MG TABLET GT SCH (09:00)
[2018-06-21] MEDS: BACLOFEN (10 MG) 10 MG TABLET GT SCH ×4 (09:00→21:45)
[2018-06-21] MEDS: HYDROGEN PEROXIDE 480 ML BOTTLE TP SCH ×2 (09:00→21:57)
[2018-06-21] MEDS: CALCIUM CARBONATE 500 MG TAB.CHEW GT SCH ×3 (09:00→17:14)
[2018-06-21] MEDS: ESCITALOPRAM OXALATE (10 MG) 10 MG TABLET GT SCH (09:00)
[2018-06-21] MEDS: CALCITRIOL 0.25 MCG CAPSULE PO SCH (09:00)
[2018-06-21] MEDS: PROSTAT (PYXIS) 30 ML UDC GT SCH ×3 (09:00→17:14)
[2018-06-21] MEDS: ACIDOPHILUS/BULGARICUS 1 EACH TAB.CHEW GT SCH ×3 (09:00→17:14)
--- NOTE | 2018-06-21 09:31 | NUR ---
Received a call from Jeanette from radiology and said that they wanted a most recent platelet count, PT/INR and PTT. Dr. Seaman aware, order given and carried out.
--- NOTE | 2018-06-21 12:20 | NUR ---
Resident left and returned from CT scan accompanied by 2 attendant in stable condition. According to the accompanying RN, Dr. Zapata did not change nephrostomy tube because based on CT scan result, there is no hydronephrosis and it is in place. He said according to MD to secure the tube with tape to keep it in place.
[2018-06-21] MEDS: HYDROCODONE/APAP 5/325MG 1 EACH TABLET GT PRN (13:24)
[2018-06-21] MEDS: DAKINS QUARTER STRENGTH (0.125%) 480 ML BOTTLE TOP SCH ×4 (14:00→21:57)
[2018-06-21] MEDS: NYSTATIN/TRIAMCIN CREAM 15 GM TUBE TP SCH ×2 (14:00→21:57)
[2018-06-21] MEDS: HYDROGEL DRESSING 90 GM TUBE TP SCH ×4 (14:00→21:57)
--- NOTE | 2018-06-21 14:00 | NUR ---
Spoke with Dr. Zapata, radiologist to clarify the plan of care with patient's nephrostomy tube. According to Dr. Zapata he confirms the report received from RN who transported patient back to the unit. However, asked MD as to when staff should be concern.At this time urine leaks from the exit site and stopcock area. He said that when nephrostomy tube is not draining that is when staff should be concern. Informed Dr. Zapata that there is a piece of wire that is about 3 cm out of the catheter and unable to advance it, he suggested to secure tubing in place by taping it against patient's skin so not to further pull the wire out. He said that he will see patient later today.
--- NOTE | 2018-06-21 17:10 | NUR ---
Dr. Zapata came and checked residents nephrostomy tube. He saw the wire like on the nephrostomy tube and he said that it was possibly pulled out. He was also informed that tube was leaking and draining at the same time. Patency was checked. He said that he will talk to Dr. Seaman and they will plan what to do if it needs to be replaced. Per Dr. Zapata, the CT scan result shows the tube is in place and no hydronephrosis which means the tube is draining well. Will continue to monitor and secure the tube properly to prevent further pulling.
[2018-06-21 19:55] VITALS: BP 138/74
[2018-06-21] MEDS ORDERED: ENOXAPARIN SODIUM 40 MG/0.4 ML DISP.SYRIN SQ SCH (21:00)
[2018-06-21] MEDS: ZINC SULFATE 220 MG CAPSULE GT SCH (21:46)
[2018-06-21] MEDS: ENOXAPARIN SODIUM 40 MG/0.4 ML DISP.SYRIN SQ SCH (21:46)
[2018-06-21] MEDS: POLYETHYLENE GLYCOL 3350 17 GM POWD.PACK GT SCH (21:47)
[2018-06-21] MEDS: ATORVASTATIN 10 MG TABLET GT SCH (21:47)
[2018-06-21] MEDS: BACI/NEOM/POLY B OINT PKT 1 UDPKT PACKET TP SCH (21:58)
[2018-06-22] MEDS: IPRATROPIUM NEB FS 0.5 MG/2.5 ML AMPUL.NEB NEB SCH ×4 (00:57→20:36)
[2018-06-22] MEDS: SUCRALFATE 1 G/10 ML UDC GT SCH ×4 (06:14→21:27)
--- NOTE | 2018-06-22 07:28 | NUR ---
nephrostomy in place. patent. noted 150 cc with leakage.
[2018-06-22 07:57] VITALS: BP 118/69
[2018-06-22] MEDS: METHADONE HCL 10 MG TABLET GT SCH (08:27)
[2018-06-22] MEDS: MULTIVIT W/MINERALS 1 TAB TABLET GT SCH (08:31)
[2018-06-22] MEDS: ASCORBIC ACID 500 MG TABLET GT SCH ×2 (08:31→17:00)
[2018-06-22] MEDS: CALCIUM CARBONATE 500 MG TAB.CHEW GT SCH ×3 (08:31→17:00)
[2018-06-22] MEDS: FAMOTIDINE (20 MG) 20 MG TABLET GT SCH ×2 (08:31→21:28)
[2018-06-22] MEDS: ACIDOPHILUS/BULGARICUS 1 EACH TAB.CHEW GT SCH ×3 (08:31→17:00)
[2018-06-22] MEDS: CALCITRIOL 0.25 MCG CAPSULE PO SCH (08:31)
[2018-06-22] MEDS: PROSTAT (PYXIS) 30 ML UDC GT SCH ×3 (08:31→17:00)
[2018-06-22] MEDS: BACLOFEN (10 MG) 10 MG TABLET GT SCH ×4 (08:31→21:27)
[2018-06-22] MEDS: ESCITALOPRAM OXALATE (10 MG) 10 MG TABLET GT SCH (08:31)
[2018-06-22] MEDS: HYDROCODONE/APAP 5/325MG 1 EACH TABLET GT SCH ×2 (09:00→21:28)
[2018-06-22] MEDS: HYDROGEL DRESSING 90 GM TUBE TP SCH ×4 (09:35→21:57)
[2018-06-22] MEDS: DAKINS QUARTER STRENGTH (0.125%) 480 ML BOTTLE TOP SCH ×4 (09:35→21:57)
[2018-06-22] MEDS: BACI/NEOM/POLY B OINT PKT 1 UDPKT PACKET TP SCH ×2 (09:35→21:57)
[2018-06-22] MEDS: NYSTATIN/TRIAMCIN CREAM 15 GM TUBE TP SCH ×2 (09:35→21:57)
[2018-06-22] MEDS: HYDROGEN PEROXIDE 480 ML BOTTLE TP SCH ×2 (09:35→21:57)
--- NOTE | 2018-06-22 17:20 | NUR ---
CARLI Tapia saw the most recent patient wound photos and pleased with the result, according to her to continue with current wound order as it is responding to treatment.
[2018-06-22 20:17] VITALS: BP 117/73
[2018-06-22] MEDS: ZINC SULFATE 220 MG CAPSULE GT SCH (21:28)
[2018-06-22] MEDS: POLYETHYLENE GLYCOL 3350 17 GM POWD.PACK GT SCH (21:29)
[2018-06-22] MEDS: ATORVASTATIN 10 MG TABLET GT SCH (21:29)
[2018-06-22] MEDS: ENOXAPARIN SODIUM 40 MG/0.4 ML DISP.SYRIN SQ SCH (21:29)
[2018-06-23] MEDS: IPRATROPIUM NEB FS 0.5 MG/2.5 ML AMPUL.NEB NEB SCH ×4 (01:50→20:18)
[2018-06-23] MEDS: METHOCARBAMOL (750MG) 750 MG TABLET GT PRN (02:38)
--- NOTE | 2018-06-23 03:11 | NUR ---
PT REC'D TRACHED ON COOL AEROSOL AND PT PLACED ON MECH VENT PER MD ORDERS. NO RESP DISTRESS OR SOB NOTED. PT AWAKE AND ALERT. TRACH IS PATENT AND SECURED. SX'D FOR MOD AMT OF PALE YELLOW SECRETIONS. ALARMS ARE SET AND AUDIBLE. VENT PLUGGED INTO RED OUTLET. AMBU BAG BEDSIDE. WILL CONTINUE TO MONITOR. Addendum: 06/23/18 at 0314 by CAITLIN SOTO RT Amended: Links added.
[2018-06-23] MEDS: SUCRALFATE 1 G/10 ML UDC GT SCH ×4 (06:32→21:12)
[2018-06-23 07:57] VITALS: BP 137/77
--- NOTE | 2018-06-23 08:26 | NUR ---
RT PT REC'D TRACH ON MECH VENT THEN PLACED ON COOL AEROSOL ON NOTED SETTINGS PER MD ORDERS. TRACH IS PATENT AND SECURED. TX GIVEN WITH NO ADVERSE REACTION NOTED. SX DONE PRN. FANNYU BAG @ BEDSIDE. NO RESP DISTRESS AT THIS TIME. WILL CONTINUE TO MONITOR. Addendum: 06/23/18 at 0827 by BUFFY SHERWOOD RT Amended: Links added.
[2018-06-23] MEDS: HYDROCODONE/APAP 5/325MG 1 EACH TABLET GT SCH ×2 (08:55→21:13)
[2018-06-23] MEDS: BACLOFEN (10 MG) 10 MG TABLET GT SCH ×4 (09:00→21:12)
[2018-06-23] MEDS: ACIDOPHILUS/BULGARICUS 1 EACH TAB.CHEW GT SCH ×3 (09:00→17:53)
[2018-06-23] MEDS: CALCITRIOL 0.25 MCG CAPSULE PO SCH (09:00)
[2018-06-23] MEDS: CALCIUM CARBONATE 500 MG TAB.CHEW GT SCH ×3 (09:00→17:53)
[2018-06-23] MEDS: ESCITALOPRAM OXALATE (10 MG) 10 MG TABLET GT SCH (09:00)
[2018-06-23] MEDS: FAMOTIDINE (20 MG) 20 MG TABLET GT SCH ×2 (09:00→21:13)
[2018-06-23] MEDS: ASCORBIC ACID 500 MG TABLET GT SCH ×2 (09:00→17:53)
[2018-06-23] MEDS: MULTIVIT W/MINERALS 1 TAB TABLET GT SCH (09:00)
[2018-06-23] MEDS: PROSTAT (PYXIS) 30 ML UDC GT SCH ×3 (09:00→17:53)
[2018-06-23] MEDS: DAKINS QUARTER STRENGTH (0.125%) 480 ML BOTTLE TOP SCH ×4 (09:30→21:13)
[2018-06-23] MEDS: NYSTATIN/TRIAMCIN CREAM 15 GM TUBE TP SCH ×2 (09:30→21:14)
[2018-06-23] MEDS: HYDROGEL DRESSING 90 GM TUBE TP SCH ×4 (09:30→21:13)
[2018-06-23] MEDS: BACI/NEOM/POLY B OINT PKT 1 UDPKT PACKET TP SCH ×2 (09:30→21:14)
[2018-06-23] MEDS: HYDROGEN PEROXIDE 480 ML BOTTLE TP SCH ×2 (09:30→21:14)
[2018-06-23] MEDS: METHADONE HCL 10 MG TABLET GT SCH (10:00)
[2018-06-23 20:38] VITALS: BP 112/63
[2018-06-23] MEDS: ZINC SULFATE 220 MG CAPSULE GT SCH (21:13)
[2018-06-23] MEDS: ENOXAPARIN SODIUM 40 MG/0.4 ML DISP.SYRIN SQ SCH (21:13)
[2018-06-23] MEDS: ATORVASTATIN 10 MG TABLET GT SCH (21:14)
[2018-06-23] MEDS: POLYETHYLENE GLYCOL 3350 17 GM POWD.PACK GT SCH (21:14)
[2018-06-24] MEDS: IPRATROPIUM NEB FS 0.5 MG/2.5 ML AMPUL.NEB NEB SCH ×4 (01:45→19:24)
[2018-06-24] MEDS: SUCRALFATE 1 G/10 ML UDC GT SCH ×4 (06:41→20:30)
[2018-06-24 07:52] VITALS: BP 142/58
[2018-06-24] MEDS: ACIDOPHILUS/BULGARICUS 1 EACH TAB.CHEW GT SCH ×3 (09:03→17:50)
[2018-06-24] MEDS: ESCITALOPRAM OXALATE (10 MG) 10 MG TABLET GT SCH (09:03)
[2018-06-24] MEDS: BACLOFEN (10 MG) 10 MG TABLET GT SCH ×4 (09:03→21:30)
[2018-06-24] MEDS: HYDROCODONE/APAP 5/325MG 1 EACH TABLET GT SCH ×2 (09:04→21:32)
[2018-06-24] MEDS: CALCITRIOL 0.25 MCG CAPSULE PO SCH (09:06)
[2018-06-24] MEDS: CALCIUM CARBONATE 500 MG TAB.CHEW GT SCH ×3 (09:06→17:50)
[2018-06-24] MEDS: ASCORBIC ACID 500 MG TABLET GT SCH ×2 (09:06→17:50)
[2018-06-24] MEDS: FAMOTIDINE (20 MG) 20 MG TABLET GT SCH ×2 (09:06→21:32)
[2018-06-24] MEDS: PROSTAT (PYXIS) 30 ML UDC GT SCH ×3 (09:06→17:50)
[2018-06-24] MEDS: MULTIVIT W/MINERALS 1 TAB TABLET GT SCH (09:07)
--- NOTE | 2018-06-24 09:10 | NUR ---
Seen and examined by Dr. Seaman, Nephrostomy tube checked, he said he will talk to Dr. Zapata and plan what to do with the tube if it needs to be replaced. Nephrostomy tube is patent and draining light yellow urine but also noted leaking. Tubing secured. Will continue with plan of care.
[2018-06-24] MEDS: BACI/NEOM/POLY B OINT PKT 1 UDPKT PACKET TP SCH ×2 (09:40→21:35)
[2018-06-24] MEDS: HYDROGEN PEROXIDE 480 ML BOTTLE TP SCH ×2 (09:40→21:35)
[2018-06-24] MEDS: NYSTATIN/TRIAMCIN CREAM 15 GM TUBE TP SCH ×2 (09:40→21:35)
[2018-06-24] MEDS: HYDROGEL DRESSING 90 GM TUBE TP SCH ×4 (09:40→21:35)
[2018-06-24] MEDS: DAKINS QUARTER STRENGTH (0.125%) 480 ML BOTTLE TOP SCH ×4 (09:40→21:34)
[2018-06-24] MEDS: METHADONE HCL 10 MG TABLET GT SCH (10:00)
[2018-06-24 20:11] VITALS: BP 149/86
[2018-06-24] MEDS: ZINC SULFATE 220 MG CAPSULE GT SCH (21:34)
[2018-06-24] MEDS: ENOXAPARIN SODIUM 40 MG/0.4 ML DISP.SYRIN SQ SCH (21:34)
[2018-06-24] MEDS: ATORVASTATIN 10 MG TABLET GT SCH (21:35)
[2018-06-24] MEDS: POLYETHYLENE GLYCOL 3350 17 GM POWD.PACK GT SCH (21:35)
[2018-06-25] MEDS: IPRATROPIUM NEB FS 0.5 MG/2.5 ML AMPUL.NEB NEB SCH ×4 (01:19→19:35)
[2018-06-25] MEDS: SUCRALFATE 1 G/10 ML UDC GT SCH ×4 (05:25→21:12)
[2018-06-25 07:35] VITALS: BP 145/90
[2018-06-25] MEDS: METHADONE HCL 10 MG TABLET GT SCH (08:38)
[2018-06-25] MEDS: BACLOFEN (10 MG) 10 MG TABLET GT SCH ×4 (08:54→21:12)
[2018-06-25] MEDS: CALCITRIOL 0.25 MCG CAPSULE PO SCH (08:54)
[2018-06-25] MEDS: ASCORBIC ACID 500 MG TABLET GT SCH ×2 (08:54→17:50)
[2018-06-25] MEDS: CALCIUM CARBONATE 500 MG TAB.CHEW GT SCH ×3 (08:54→17:50)
[2018-06-25] MEDS: MULTIVIT W/MINERALS 1 TAB TABLET GT SCH (08:54)
[2018-06-25] MEDS: ESCITALOPRAM OXALATE (10 MG) 10 MG TABLET GT SCH (08:54)
[2018-06-25] MEDS: PROSTAT (PYXIS) 30 ML UDC GT SCH ×3 (08:54→17:50)
[2018-06-25] MEDS: ACIDOPHILUS/BULGARICUS 1 EACH TAB.CHEW GT SCH ×3 (08:54→17:50)
[2018-06-25] MEDS: FAMOTIDINE (20 MG) 20 MG TABLET GT SCH ×2 (08:54→21:14)
[2018-06-25] MEDS: HYDROCODONE/APAP 5/325MG 1 EACH TABLET GT SCH ×2 (09:30→21:14)
[2018-06-25] MEDS: DAKINS QUARTER STRENGTH (0.125%) 480 ML BOTTLE TOP SCH ×4 (10:10→21:15)
[2018-06-25] MEDS: BACI/NEOM/POLY B OINT PKT 1 UDPKT PACKET TP SCH ×2 (10:10→21:16)
[2018-06-25] MEDS: NYSTATIN/TRIAMCIN CREAM 15 GM TUBE TP SCH ×2 (10:10→21:15)
[2018-06-25] MEDS: HYDROGEN PEROXIDE 480 ML BOTTLE TP SCH ×2 (10:10→21:15)
[2018-06-25] MEDS: HYDROGEL DRESSING 90 GM TUBE TP SCH ×4 (10:10→21:15)
--- NOTE | 2018-06-25 12:35 | NUR ---
Nerissa from Radiology called and said that Dr Kate will replace pt's right nephrostomy tube tomorrow. Notified Dr Seaman who said that he spoke with Dr Kate. Received order to hold Lovenox dose tonight and place pt NPO at midnight. Notified pt and Vilma Marley.
[2018-06-25 20:19] VITALS: BP 129/90
[2018-06-25] MEDS: ENOXAPARIN SODIUM 40 MG/0.4 ML DISP.SYRIN SQ SCH (21:00)
[2018-06-25] MEDS: ZINC SULFATE 220 MG CAPSULE GT SCH (21:14)
[2018-06-25] MEDS: POLYETHYLENE GLYCOL 3350 17 GM POWD.PACK GT SCH (21:16)
[2018-06-25] MEDS: ATORVASTATIN 10 MG TABLET GT SCH (21:16)
[2018-06-26] MEDS: IPRATROPIUM NEB FS 0.5 MG/2.5 ML AMPUL.NEB NEB SCH ×4 (01:54→20:01)
[2018-06-26] MEDS: SUCRALFATE 1 G/10 ML UDC GT SCH ×4 (05:32→21:14)
--- NOTE | 2018-06-26 05:32 | NUR ---
PTs morning meds was held due to PT is having a procedure.
--- NOTE | 2018-06-26 07:28 | NUR ---
RT NOTE: PATIENT PLACED ON COOL AEROSOL PER MD ORDER. TOLERATING WELL. AMBU BAG AND NEW TRACH AT [facility].
[2018-06-26 08:06] VITALS: BP 126/92
[2018-06-26] MEDS: ESCITALOPRAM OXALATE (10 MG) 10 MG TABLET GT SCH (09:00)
[2018-06-26] MEDS: CALCIUM CARBONATE 500 MG TAB.CHEW GT SCH ×3 (09:00→17:02)
[2018-06-26] MEDS: PROSTAT (PYXIS) 30 ML UDC GT SCH ×3 (09:00→17:02)
[2018-06-26] MEDS: FAMOTIDINE (20 MG) 20 MG TABLET GT SCH ×2 (09:00→21:16)
[2018-06-26] MEDS: BACLOFEN (10 MG) 10 MG TABLET GT SCH ×4 (09:00→21:14)
[2018-06-26] MEDS: ASCORBIC ACID 500 MG TABLET GT SCH ×2 (09:00→17:02)
[2018-06-26] MEDS: MULTIVIT W/MINERALS 1 TAB TABLET GT SCH (09:00)
[2018-06-26] MEDS: CALCITRIOL 0.25 MCG CAPSULE PO SCH (09:00)
[2018-06-26] MEDS: ACIDOPHILUS/BULGARICUS 1 EACH TAB.CHEW GT SCH ×3 (09:00→17:02)
[2018-06-26] MEDS ORDERED: NALOXONE PREFILLED SYRINGE 2 MG/2 ML SYRINGE IV ONE (10:00)
[2018-06-26] MEDS ORDERED: MIDAZOLAM HCL 5MG/ML VIAL 25 MG/5 ML VIAL IV ONE (10:00)
[2018-06-26] MEDS ORDERED: FENTANYL PF 250MCG/5ML AMPUL IV ONE (10:00)
--- NOTE | 2018-06-26 10:08 | NUR ---
Seen and examined by Dr. Ugarte, NNO given. Patient scheduled for nephrostomy tube replacement.
--- NOTE | 2018-06-26 12:00 | NUR ---
RT NOTE: RT STAND BY FOR PROCEDURE PER MD IN RADIOLOGY DEPARTMENT. PATIENT IS NOW BACK IN ROOM AWAKE WITH [id number]%. TOLERATING WELL ON COOL AEROSOL.
--- NOTE | 2018-06-26 12:11 | NUR ---
Patient returned from radiology dept s/p procedure. New nephrostomy tube placed on right lower bacl, dressing dry and intact. BP 125/69, HR 74, temp 98.1, RR 16, in no distress. All needs met and attended, pt kept comfortable. Due meds given.
[2018-06-26] MEDS: METHADONE HCL 10 MG TABLET GT SCH (12:17)
[2018-06-26] MEDS: HYDROCODONE/APAP 5/325MG 1 EACH TABLET GT SCH ×2 (13:30→21:16)
[2018-06-26] MEDS: BACI/NEOM/POLY B OINT PKT 1 UDPKT PACKET TP SCH ×2 (14:00→21:18)
[2018-06-26] MEDS: DAKINS QUARTER STRENGTH (0.125%) 480 ML BOTTLE TOP SCH ×4 (14:00→21:17)
[2018-06-26] MEDS: HYDROGEL DRESSING 90 GM TUBE TP SCH ×4 (14:00→21:17)
[2018-06-26] MEDS: NYSTATIN/TRIAMCIN CREAM 15 GM TUBE TP SCH ×2 (14:00→21:18)
[2018-06-26] MEDS: HYDROGEN PEROXIDE 480 ML BOTTLE TP SCH ×2 (14:00→21:17)
[2018-06-26 20:16] VITALS: BP 110/58
[2018-06-26] MEDS: ZINC SULFATE 220 MG CAPSULE GT SCH (21:16)
[2018-06-26] MEDS: ENOXAPARIN SODIUM 40 MG/0.4 ML DISP.SYRIN SQ SCH (21:16)
[2018-06-26] MEDS: POLYETHYLENE GLYCOL 3350 17 GM POWD.PACK GT SCH (21:18)
[2018-06-26] MEDS: ATORVASTATIN 10 MG TABLET GT SCH (21:18)
[2018-06-26] MEDS: METHOCARBAMOL (750MG) 750 MG TABLET GT PRN (21:23)
[2018-06-27] MEDS: IPRATROPIUM NEB FS 0.5 MG/2.5 ML AMPUL.NEB NEB SCH ×4 (01:35→19:33)
[2018-06-27] MEDS: SUCRALFATE 1 G/10 ML UDC GT SCH ×4 (05:21→21:00)
[2018-06-27 08:00] VITALS: BP 130/75
[2018-06-27] MEDS: ACIDOPHILUS/BULGARICUS 1 EACH TAB.CHEW GT SCH ×3 (08:54→17:24)
[2018-06-27] MEDS: METHADONE HCL 10 MG TABLET GT SCH (08:55)
[2018-06-27] MEDS: BACLOFEN (10 MG) 10 MG TABLET GT SCH ×4 (08:55→21:45)
[2018-06-27] MEDS: CALCITRIOL 0.25 MCG CAPSULE PO SCH (08:55)
[2018-06-27] MEDS: PROSTAT (PYXIS) 30 ML UDC GT SCH ×3 (08:55→17:24)
[2018-06-27] MEDS: FAMOTIDINE (20 MG) 20 MG TABLET GT SCH ×2 (08:55→21:46)
[2018-06-27] MEDS: MULTIVIT W/MINERALS 1 TAB TABLET GT SCH (08:55)
[2018-06-27] MEDS: CALCIUM CARBONATE 500 MG TAB.CHEW GT SCH ×3 (08:55→17:24)
[2018-06-27] MEDS: ESCITALOPRAM OXALATE (10 MG) 10 MG TABLET GT SCH (08:55)
[2018-06-27] MEDS: ASCORBIC ACID 500 MG TABLET GT SCH ×2 (08:55→17:24)
[2018-06-27] MEDS: HYDROCODONE/APAP 5/325MG 1 EACH TABLET GT SCH ×2 (09:30→21:46)
[2018-06-27] MEDS: HYDROGEN PEROXIDE 480 ML BOTTLE TP SCH ×2 (10:00→22:00)
[2018-06-27] MEDS: DAKINS QUARTER STRENGTH (0.125%) 480 ML BOTTLE TOP SCH ×4 (10:00→22:00)
[2018-06-27] MEDS: NYSTATIN/TRIAMCIN CREAM 15 GM TUBE TP SCH ×2 (10:00→22:00)
[2018-06-27] MEDS: HYDROGEL DRESSING 90 GM TUBE TP SCH ×4 (10:00→22:00)
[2018-06-27] MEDS: BACI/NEOM/POLY B OINT PKT 1 UDPKT PACKET TP SCH ×2 (10:00→22:00)
[2018-06-27 20:14] VITALS: BP 133/81
[2018-06-27] MEDS: ZINC SULFATE 220 MG CAPSULE GT SCH (21:46)
[2018-06-27] MEDS: ENOXAPARIN SODIUM 40 MG/0.4 ML DISP.SYRIN SQ SCH (21:47)
[2018-06-27] MEDS: POLYETHYLENE GLYCOL 3350 17 GM POWD.PACK GT SCH (21:47)
[2018-06-27] MEDS: ATORVASTATIN 10 MG TABLET GT SCH (21:47)
[2018-06-28] MEDS: METHOCARBAMOL (750MG) 750 MG TABLET GT PRN (01:35)
[2018-06-28] MEDS: IPRATROPIUM NEB FS 0.5 MG/2.5 ML AMPUL.NEB NEB SCH ×4 (02:01→19:53)
[2018-06-28] MEDS: SUCRALFATE 1 G/10 ML UDC GT SCH ×4 (06:34→20:49)
[2018-06-28 08:02] VITALS: BP 131/75
--- NOTE | 2018-06-28 08:58 | NUR ---
RT PT REC'D TRACH ON MECH VENT THEN PLACED ON COOL AEROSOL ON NOTED SETTINGS PER MD ORDERS. TRACH IS PATENT AND SECURED. TX GIVEN WITH NO ADVERSE REACTION NOTED. SX DONE PRN. FANNYU BAG @ BEDSIDE. NO RESP DISTRESS AT THIS TIME. WILL CONTINUE TO MONITOR. Addendum: 06/28/18 at 0858 by BUFFY SHERWOOD RT Amended: Links added.
[2018-06-28] MEDS: ESCITALOPRAM OXALATE (10 MG) 10 MG TABLET GT SCH (09:09)
[2018-06-28] MEDS: METHADONE HCL 10 MG TABLET GT SCH (09:09)
[2018-06-28] MEDS: ACIDOPHILUS/BULGARICUS 1 EACH TAB.CHEW GT SCH ×3 (09:09→17:43)
[2018-06-28] MEDS: BACLOFEN (10 MG) 10 MG TABLET GT SCH ×4 (09:09→21:23)
[2018-06-28] MEDS: PROSTAT (PYXIS) 30 ML UDC GT SCH ×3 (09:10→17:43)
[2018-06-28] MEDS: ASCORBIC ACID 500 MG TABLET GT SCH ×2 (09:10→17:44)
[2018-06-28] MEDS: MULTIVIT W/MINERALS 1 TAB TABLET GT SCH (09:10)
[2018-06-28] MEDS: FAMOTIDINE (20 MG) 20 MG TABLET GT SCH ×2 (09:10→21:25)
[2018-06-28] MEDS: CALCIUM CARBONATE 500 MG TAB.CHEW GT SCH ×3 (09:10→17:43)
[2018-06-28] MEDS: CALCITRIOL 0.25 MCG CAPSULE PO SCH (09:10)
[2018-06-28] MEDS: HYDROCODONE/APAP 5/325MG 1 EACH TABLET GT SCH ×2 (09:10→21:25)
[2018-06-28] MEDS: HYDROGEN PEROXIDE 480 ML BOTTLE TP SCH ×2 (09:40→22:00)
[2018-06-28] MEDS: DAKINS QUARTER STRENGTH (0.125%) 480 ML BOTTLE TOP SCH ×4 (09:40→22:00)
[2018-06-28] MEDS: BACI/NEOM/POLY B OINT PKT 1 UDPKT PACKET TP SCH ×2 (09:40→22:00)
[2018-06-28] MEDS: HYDROGEL DRESSING 90 GM TUBE TP SCH ×4 (09:40→22:00)
[2018-06-28] MEDS: NYSTATIN/TRIAMCIN CREAM 15 GM TUBE TP SCH ×2 (09:40→22:00)
[2018-06-28] MEDS: ACETAMINOPHEN 650 MG/20 ML UDC- SA PATIENTS-PAIN ONLY GT PRN (17:44)
[2018-06-28 20:03] VITALS: BP 117/80
[2018-06-28] MEDS: POLYETHYLENE GLYCOL 3350 17 GM POWD.PACK GT SCH (21:25)
[2018-06-28] MEDS: ENOXAPARIN SODIUM 40 MG/0.4 ML DISP.SYRIN SQ SCH (21:25)
[2018-06-28] MEDS: ATORVASTATIN 10 MG TABLET GT SCH (21:25)
[2018-06-28] MEDS: ZINC SULFATE 220 MG CAPSULE GT SCH (21:25)
--- NOTE | 2018-06-28 21:35 | NUR ---
RT NOTE PATIENT RECEIVED TRACHED ON COOL AEROSOL. PLACED PATIENT ON MECHANICAL VENTILATION. CUFF CHECKED VIA MANGANESE BREAKER. TX GIVEN, NO ADVERSE REACTIONS NOTED. SX DONE, SMALL THICK WHITE YELLOW SECRETIONS NOTED. ALARMS ON AND AUDIBLE. VENT PLUGGED TO RED OUTLET. NO DISTRESS NOTED. WILL MONITOR T/O SHIFT. Addendum: 06/28/18 at 2140 by VERNELL CHRISTINE RT Amended: Links added.
[2018-06-29] MEDS: IPRATROPIUM NEB FS 0.5 MG/2.5 ML AMPUL.NEB NEB SCH ×4 (01:34→20:03)
[2018-06-29] MEDS: METHOCARBAMOL (750MG) 750 MG TABLET GT PRN (05:19)
[2018-06-29] MEDS: SUCRALFATE 1 G/10 ML UDC GT SCH ×4 (05:56→21:18)
[2018-06-29 07:27] VITALS: BP 110/75
[2018-06-29] MEDS: ESCITALOPRAM OXALATE (10 MG) 10 MG TABLET GT SCH (09:00)
[2018-06-29] MEDS: MULTIVIT W/MINERALS 1 TAB TABLET GT SCH (09:00)
[2018-06-29] MEDS: BACLOFEN (10 MG) 10 MG TABLET GT SCH ×4 (09:00→21:18)
[2018-06-29] MEDS: CALCITRIOL 0.25 MCG CAPSULE PO SCH (09:00)
[2018-06-29] MEDS: CALCIUM CARBONATE 500 MG TAB.CHEW GT SCH ×3 (09:00→17:44)
[2018-06-29] MEDS: ACIDOPHILUS/BULGARICUS 1 EACH TAB.CHEW GT SCH ×3 (09:00→17:44)
[2018-06-29] MEDS: FAMOTIDINE (20 MG) 20 MG TABLET GT SCH ×2 (09:00→21:18)
[2018-06-29] MEDS: ASCORBIC ACID 500 MG TABLET GT SCH ×2 (09:00→17:44)
[2018-06-29] MEDS: PROSTAT (PYXIS) 30 ML UDC GT SCH ×3 (09:00→17:44)
[2018-06-29] MEDS: METHADONE HCL 10 MG TABLET GT SCH (10:00)
[2018-06-29] MEDS: HYDROCODONE/APAP 5/325MG 1 EACH TABLET GT SCH ×2 (10:00→21:18)
[2018-06-29] MEDS: BACI/NEOM/POLY B OINT PKT 1 UDPKT PACKET TP SCH ×2 (10:30→21:45)
[2018-06-29] MEDS: NYSTATIN/TRIAMCIN CREAM 15 GM TUBE TP SCH ×2 (10:30→21:45)
[2018-06-29] MEDS: HYDROGEN PEROXIDE 480 ML BOTTLE TP SCH ×2 (10:30→21:45)
[2018-06-29] MEDS: HYDROGEL DRESSING 90 GM TUBE TP SCH ×4 (10:30→21:45)
[2018-06-29] MEDS: DAKINS QUARTER STRENGTH (0.125%) 480 ML BOTTLE TOP SCH ×4 (10:30→21:45)
--- NOTE | 2018-06-29 20:03 | NUR ---
RT PATIENT RECEIVED TRACHED ON COOL AEROSOL VIA T-MASK. PLACED PATIENT ON MECHANICAL VENTILATION ON ORDERED AC MODE SETTINGS. NO DISTRESS NOTED. BEHAVIORAL HEALTH CARE COORDINATOR FOR CUFF DONE. TX GIVEN. PT SUCTIONED, SMALL THICK WHITE YELLOW SECRETIONS NOTED. ALARMS SET AND AUDIBLE. VENT CONNECTED TO RED OUTLET. WILL CONT TO MONITOR. Addendum: 06/29/18 at 2144 by DAMON PAZ RT Amended: Links added.
[2018-06-29 20:12] VITALS: BP 112/69
[2018-06-29] MEDS: ZINC SULFATE 220 MG CAPSULE GT SCH (21:18)
[2018-06-29] MEDS: POLYETHYLENE GLYCOL 3350 17 GM POWD.PACK GT SCH (21:19)
[2018-06-29] MEDS: ENOXAPARIN SODIUM 40 MG/0.4 ML DISP.SYRIN SQ SCH (21:19)
[2018-06-29] MEDS: ATORVASTATIN 10 MG TABLET GT SCH (21:19)
[2018-06-30] MEDS: IPRATROPIUM NEB FS 0.5 MG/2.5 ML AMPUL.NEB NEB SCH ×4 (01:13→19:41)
[2018-06-30] MEDS: METHOCARBAMOL (750MG) 750 MG TABLET GT PRN (02:50)
[2018-06-30] MEDS: SUCRALFATE 1 G/10 ML UDC GT SCH ×4 (06:21→20:30)
--- NOTE | 2018-06-30 09:00 | NUR ---
RT NOTE: PLACED PT ON 28% C/A PER MD QDAY ORDER. TERRANCE WELL. NO RESPIRATORY DISTRESS NOTED. RN/EQUIPMENT SERVICE LEAD NOTIFIED.
[2018-06-30 09:16] VITALS: BP 134/71
[2018-06-30] MEDS: ACIDOPHILUS/BULGARICUS 1 EACH TAB.CHEW GT SCH ×3 (09:31→17:33)
[2018-06-30] MEDS: BACLOFEN (10 MG) 10 MG TABLET GT SCH ×4 (09:31→22:12)
[2018-06-30] MEDS: ESCITALOPRAM OXALATE (10 MG) 10 MG TABLET GT SCH (09:31)
[2018-06-30] MEDS: PROSTAT (PYXIS) 30 ML UDC GT SCH ×3 (09:32→17:33)
[2018-06-30] MEDS: ASCORBIC ACID 500 MG TABLET GT SCH ×2 (09:32→17:33)
[2018-06-30] MEDS: METHADONE HCL 10 MG TABLET GT SCH (09:32)
[2018-06-30] MEDS: MULTIVIT W/MINERALS 1 TAB TABLET GT SCH (09:32)
[2018-06-30] MEDS: CALCITRIOL 0.25 MCG CAPSULE PO SCH (09:32)
[2018-06-30] MEDS: FAMOTIDINE (20 MG) 20 MG TABLET GT SCH ×2 (09:32→22:12)
[2018-06-30] MEDS: CALCIUM CARBONATE 500 MG TAB.CHEW GT SCH ×3 (09:32→17:33)
[2018-06-30] MEDS: HYDROCODONE/APAP 5/325MG 1 EACH TABLET GT SCH ×2 (09:32→22:12)
[2018-06-30] MEDS: BACI/NEOM/POLY B OINT PKT 1 UDPKT PACKET TP SCH ×2 (10:00→22:15)
[2018-06-30] MEDS: NYSTATIN/TRIAMCIN CREAM 15 GM TUBE TP SCH ×2 (10:00→22:15)
[2018-06-30] MEDS: HYDROGEN PEROXIDE 480 ML BOTTLE TP SCH ×2 (10:00→22:14)
[2018-06-30] MEDS: HYDROGEL DRESSING 90 GM TUBE TP SCH ×4 (10:00→22:14)
[2018-06-30] MEDS: DAKINS QUARTER STRENGTH (0.125%) 480 ML BOTTLE TOP SCH ×4 (10:00→22:14)
--- NOTE | 2018-06-30 15:47 | NUR ---
RT NOTE: RECEIVED PT ON ORDERED AC VENT SETTINGS. PLACED PT ON 28% C/A PER QDAY ORDER @ 0900. PT TERRANCE WELL. NO RESPIRATORY DISTRESS NOTED. TRACH CHECKED SECURE AND PATENT. SXD AND LAVAGED PT Q ROUNDS AND NEEDED. TXS GIVEN ORDERED WITH NO ADVERSE REACTIONS NOTED. EMERGENCY EQUIPMENT @ BEDSIDE. ALARMS CHECKED ON AND AUDIBLE. WILL CONTINUE TO MONITOR.
[2018-06-30 20:22] VITALS: BP 124/67
[2018-06-30] MEDS: ENOXAPARIN SODIUM 40 MG/0.4 ML DISP.SYRIN SQ SCH (21:00)
[2018-06-30] MEDS: ZINC SULFATE 220 MG CAPSULE GT SCH (22:13)
[2018-06-30] MEDS: ATORVASTATIN 10 MG TABLET GT SCH (22:15)
[2018-06-30] MEDS: POLYETHYLENE GLYCOL 3350 17 GM POWD.PACK GT SCH (22:16)
[2018-07-01] MEDS: IPRATROPIUM NEB FS 0.5 MG/2.5 ML AMPUL.NEB NEB SCH ×4 (01:31→19:52)
[2018-07-01] MEDS: SUCRALFATE 1 G/10 ML UDC GT SCH ×4 (06:20→21:11)
[2018-07-01 08:14] VITALS: BP 118/73
[2018-07-01] MEDS: DAKINS QUARTER STRENGTH (0.125%) 480 ML BOTTLE TOP SCH ×4 (09:00→21:12)
[2018-07-01] MEDS: HYDROGEL DRESSING 90 GM TUBE TP SCH ×4 (09:00→21:13)
[2018-07-01] MEDS: HYDROGEN PEROXIDE 480 ML BOTTLE TP SCH ×2 (09:00→21:13)
[2018-07-01] MEDS: BACI/NEOM/POLY B OINT PKT 1 UDPKT PACKET TP SCH ×2 (09:00→21:13)
[2018-07-01] MEDS: NYSTATIN/TRIAMCIN CREAM 15 GM TUBE TP SCH ×2 (09:00→21:13)
[2018-07-01] MEDS: ACIDOPHILUS/BULGARICUS 1 EACH TAB.CHEW GT SCH ×3 (09:01→17:10)
[2018-07-01] MEDS: ESCITALOPRAM OXALATE (10 MG) 10 MG TABLET GT SCH (09:01)
[2018-07-01] MEDS: METHADONE HCL 10 MG TABLET GT SCH (09:02)
[2018-07-01] MEDS: BACLOFEN (10 MG) 10 MG TABLET GT SCH ×4 (09:02→21:11)
[2018-07-01] MEDS: CALCIUM CARBONATE 500 MG TAB.CHEW GT SCH ×3 (09:03→17:10)
[2018-07-01] MEDS: MULTIVIT W/MINERALS 1 TAB TABLET GT SCH (09:03)
[2018-07-01] MEDS: FAMOTIDINE (20 MG) 20 MG TABLET GT SCH ×2 (09:03→21:12)
[2018-07-01] MEDS: PROSTAT (PYXIS) 30 ML UDC GT SCH ×3 (09:03→17:10)
[2018-07-01] MEDS: HYDROCODONE/APAP 5/325MG 1 EACH TABLET GT SCH ×2 (09:03→21:12)
[2018-07-01] MEDS: ASCORBIC ACID 500 MG TABLET GT SCH ×2 (09:04→17:10)
[2018-07-01] MEDS: CALCITRIOL 0.25 MCG CAPSULE PO SCH (09:04)
[2018-07-01 19:34] VITALS: BP 115/69
[2018-07-01] MEDS: ENOXAPARIN SODIUM 40 MG/0.4 ML DISP.SYRIN SQ SCH (21:12)
[2018-07-01] MEDS: ZINC SULFATE 220 MG CAPSULE GT SCH (21:12)
[2018-07-01] MEDS: ATORVASTATIN 10 MG TABLET GT SCH (21:13)
[2018-07-01] MEDS: POLYETHYLENE GLYCOL 3350 17 GM POWD.PACK GT SCH (21:13)
[2018-07-02] MEDS: IPRATROPIUM NEB FS 0.5 MG/2.5 ML AMPUL.NEB NEB SCH ×4 (01:36→19:51)
[2018-07-02] MEDS: SUCRALFATE 1 G/10 ML UDC GT SCH ×4 (06:09→20:59)
[2018-07-02 07:47] VITALS: BP 127/67
[2018-07-02] MEDS: HYDROGEL DRESSING 90 GM TUBE TP SCH ×4 (09:00→21:01)
[2018-07-02] MEDS: BACI/NEOM/POLY B OINT PKT 1 UDPKT PACKET TP SCH ×2 (09:00→21:01)
[2018-07-02] MEDS: HYDROGEN PEROXIDE 480 ML BOTTLE TP SCH ×2 (09:00→21:01)
[2018-07-02] MEDS: ACIDOPHILUS/BULGARICUS 1 EACH TAB.CHEW GT SCH ×3 (09:00→16:40)
[2018-07-02] MEDS: CALCIUM CARBONATE 500 MG TAB.CHEW GT SCH ×3 (09:00→16:40)
[2018-07-02] MEDS: ASCORBIC ACID 500 MG TABLET GT SCH ×2 (09:00→16:40)
[2018-07-02] MEDS: PROSTAT (PYXIS) 30 ML UDC GT SCH ×3 (09:00→16:40)
[2018-07-02] MEDS: HYDROCODONE/APAP 5/325MG 1 EACH TABLET GT SCH ×2 (09:00→21:00)
[2018-07-02] MEDS: DAKINS QUARTER STRENGTH (0.125%) 480 ML BOTTLE TOP SCH ×4 (09:00→21:00)
[2018-07-02] MEDS: METHADONE HCL 10 MG TABLET GT SCH (09:00)
[2018-07-02] MEDS: BACLOFEN (10 MG) 10 MG TABLET GT SCH ×4 (09:00→20:59)
[2018-07-02] MEDS: ESCITALOPRAM OXALATE (10 MG) 10 MG TABLET GT SCH (09:00)
[2018-07-02] MEDS: FAMOTIDINE (20 MG) 20 MG TABLET GT SCH ×2 (09:00→21:00)
[2018-07-02] MEDS: NYSTATIN/TRIAMCIN CREAM 15 GM TUBE TP SCH ×2 (09:00→21:01)
[2018-07-02] MEDS: MULTIVIT W/MINERALS 1 TAB TABLET GT SCH (09:00)
[2018-07-02] MEDS: CALCITRIOL 0.25 MCG CAPSULE PO SCH (09:00)
[2018-07-02 19:59] VITALS: BP 107/61
[2018-07-02] MEDS: ZINC SULFATE 220 MG CAPSULE GT SCH (21:00)
[2018-07-02] MEDS: ENOXAPARIN SODIUM 40 MG/0.4 ML DISP.SYRIN SQ SCH (21:00)
[2018-07-02] MEDS: ATORVASTATIN 10 MG TABLET GT SCH (21:01)
[2018-07-02] MEDS: POLYETHYLENE GLYCOL 3350 17 GM POWD.PACK GT SCH (21:01)
[2018-07-03] MEDS: IPRATROPIUM NEB FS 0.5 MG/2.5 ML AMPUL.NEB NEB SCH ×4 (00:41→19:48)
[2018-07-03] MEDS: SUCRALFATE 1 G/10 ML UDC GT SCH ×4 (05:40→19:46)
[2018-07-03 07:33] VITALS: BP 122/69
[2018-07-03] MEDS: DAKINS QUARTER STRENGTH (0.125%) 480 ML BOTTLE TOP SCH ×4 (09:00→20:32)
[2018-07-03] MEDS: MULTIVIT W/MINERALS 1 TAB TABLET GT SCH (09:00)
[2018-07-03] MEDS: FAMOTIDINE (20 MG) 20 MG TABLET GT SCH ×2 (09:00→20:31)
[2018-07-03] MEDS: PROSTAT (PYXIS) 30 ML UDC GT SCH ×3 (09:00→17:00)
[2018-07-03] MEDS: CALCIUM CARBONATE 500 MG TAB.CHEW GT SCH ×3 (09:00→17:00)
[2018-07-03] MEDS: HYDROGEL DRESSING 90 GM TUBE TP SCH ×4 (09:00→20:32)
[2018-07-03] MEDS: BACLOFEN (10 MG) 10 MG TABLET GT SCH ×4 (09:00→20:31)
[2018-07-03] MEDS: ASCORBIC ACID 500 MG TABLET GT SCH ×2 (09:00→17:00)
[2018-07-03] MEDS: HYDROGEN PEROXIDE 480 ML BOTTLE TP SCH ×2 (09:00→20:32)
[2018-07-03] MEDS: ESCITALOPRAM OXALATE (10 MG) 10 MG TABLET GT SCH (09:00)
[2018-07-03] MEDS: BACI/NEOM/POLY B OINT PKT 1 UDPKT PACKET TP SCH ×2 (09:00→20:32)
[2018-07-03] MEDS: NYSTATIN/TRIAMCIN CREAM 15 GM TUBE TP SCH ×2 (09:00→20:32)
[2018-07-03] MEDS: METHADONE HCL 10 MG TABLET GT SCH (09:00)
[2018-07-03] MEDS: CALCITRIOL 0.25 MCG CAPSULE PO SCH (09:00)
[2018-07-03] MEDS: ACIDOPHILUS/BULGARICUS 1 EACH TAB.CHEW GT SCH ×3 (09:00→17:00)
[2018-07-03] MEDS: HYDROCODONE/APAP 5/325MG 1 EACH TABLET GT SCH ×2 (09:00→20:31)
--- NOTE | 2018-07-03 09:30 | NUR ---
Seen and examined by Dr. Ugarte, NNO given.
--- NOTE | 2018-07-03 19:00 | NUR ---
Seen and examined by Dr. Jurgen MD informed that nephrostomy tube has been changed last week and draining well. NNO given.
[2018-07-03 20:00] VITALS: BP 100/55
[2018-07-03 20:02] VITALS: BP 100/55
[2018-07-03] MEDS: ZINC SULFATE 220 MG CAPSULE GT SCH (20:31)
[2018-07-03] MEDS: ENOXAPARIN SODIUM 40 MG/0.4 ML DISP.SYRIN SQ SCH (20:34)
[2018-07-03] MEDS: ATORVASTATIN 10 MG TABLET GT SCH (21:56)
[2018-07-03] MEDS: POLYETHYLENE GLYCOL 3350 17 GM POWD.PACK GT SCH (21:56)
[2018-07-04] MEDS: IPRATROPIUM NEB FS 0.5 MG/2.5 ML AMPUL.NEB NEB SCH ×4 (00:52→19:52)
--- NOTE | 2018-07-04 03:35 | NUR ---
patient awake, with moaning, requesting pain medication, as needed nirco 5-325 mg via gtube to be given.
[2018-07-04] MEDS: SUCRALFATE 1 G/10 ML UDC GT SCH ×4 (05:25→21:11)
[2018-07-04 08:29] VITALS: BP 122/72
[2018-07-04] MEDS: ACIDOPHILUS/BULGARICUS 1 EACH TAB.CHEW GT SCH ×3 (09:00→17:58)
[2018-07-04] MEDS: CALCITRIOL 0.25 MCG CAPSULE PO SCH (09:00)
[2018-07-04] MEDS: BACLOFEN (10 MG) 10 MG TABLET GT SCH ×4 (09:00→21:11)
[2018-07-04] MEDS: METHADONE HCL 10 MG TABLET GT SCH (09:00)
[2018-07-04] MEDS: ASCORBIC ACID 500 MG TABLET GT SCH ×2 (09:00→17:57)
[2018-07-04] MEDS: ESCITALOPRAM OXALATE (10 MG) 10 MG TABLET GT SCH (09:00)
[2018-07-04] MEDS: CALCIUM CARBONATE 500 MG TAB.CHEW GT SCH ×3 (09:00→17:58)
[2018-07-04] MEDS: MULTIVIT W/MINERALS 1 TAB TABLET GT SCH (09:00)
[2018-07-04] MEDS: FAMOTIDINE (20 MG) 20 MG TABLET GT SCH ×2 (09:00→21:13)
[2018-07-04] MEDS: PROSTAT (PYXIS) 30 ML UDC GT SCH ×3 (09:00→17:58)
[2018-07-04] MEDS: HYDROCODONE/APAP 5/325MG 1 EACH TABLET GT SCH ×2 (15:00→21:13)
[2018-07-04] MEDS: BACI/NEOM/POLY B OINT PKT 1 UDPKT PACKET TP SCH ×2 (16:00→22:00)
[2018-07-04] MEDS: HYDROGEL DRESSING 90 GM TUBE TP SCH ×4 (16:00→22:00)
[2018-07-04] MEDS: NYSTATIN/TRIAMCIN CREAM 15 GM TUBE TP SCH ×2 (16:00→22:00)
[2018-07-04] MEDS: DAKINS QUARTER STRENGTH (0.125%) 480 ML BOTTLE TOP SCH ×4 (16:00→22:00)
[2018-07-04] MEDS: HYDROGEN PEROXIDE 480 ML BOTTLE TP SCH ×2 (16:00→22:00)
[2018-07-04 19:51] VITALS: BP 116/69
--- NOTE | 2018-07-04 19:52 | NUR ---
PATIENT RECEIVED ON COOL AEROSOL. PLACED PATIENT ON MECHANICAL VENTILATION PER NOC ORDER. PT IS AWAKE AND ALERT. CUFF CHECKED VIA ETHNOGRAPHER. AMBU BAG/BACK UP TRACH @ BEDSIDE. VENT PLUGGED INTO RED OUTLET. ALARMS ON AND AUDIBLE. TX GIVEN, NO ADVERSE REACTIONS NOTED. SX DONE, MODERATE THICK YELLOW SECRETIONS NOTED. PATIENT STABLE. WILL MONITOR.
[2018-07-04] MEDS: ENOXAPARIN SODIUM 40 MG/0.4 ML DISP.SYRIN SQ SCH (21:13)
[2018-07-04] MEDS: ZINC SULFATE 220 MG CAPSULE GT SCH (21:13)
[2018-07-04] MEDS: ATORVASTATIN 10 MG TABLET GT SCH (21:14)
[2018-07-04] MEDS: POLYETHYLENE GLYCOL 3350 17 GM POWD.PACK GT SCH (21:14)
[2018-07-05] MEDS: IPRATROPIUM NEB FS 0.5 MG/2.5 ML AMPUL.NEB NEB SCH ×4 (01:09→19:04)
[2018-07-05] MEDS: SUCRALFATE 1 G/10 ML UDC GT SCH ×4 (06:26→20:30)
--- NOTE | 2018-07-05 07:45 | NUR ---
RT NOTE: AWAKE PATIENT RECEIVED MECHANICAL VENT AND PLACED ON COOL AEROSOL PER MD ORDER. TOLERATING WELL AT THIS TIME.
[2018-07-05 07:51] VITALS: BP 126/82
[2018-07-05] MEDS: DAKINS QUARTER STRENGTH (0.125%) 480 ML BOTTLE TOP SCH ×4 (09:00→21:44)
[2018-07-05] MEDS: HYDROGEL DRESSING 90 GM TUBE TP SCH ×4 (09:00→21:44)
[2018-07-05] MEDS: BACI/NEOM/POLY B OINT PKT 1 UDPKT PACKET TP SCH (09:00)
[2018-07-05] MEDS: NYSTATIN/TRIAMCIN CREAM 15 GM TUBE TP SCH ×2 (09:00→21:44)
[2018-07-05] MEDS: HYDROGEN PEROXIDE 480 ML BOTTLE TP SCH ×2 (09:00→21:44)
[2018-07-05] MEDS: BACLOFEN (10 MG) 10 MG TABLET GT SCH ×4 (09:49→21:41)
[2018-07-05] MEDS: ACIDOPHILUS/BULGARICUS 1 EACH TAB.CHEW GT SCH ×3 (09:49→17:49)
[2018-07-05] MEDS: HYDROCODONE/APAP 5/325MG 1 EACH TABLET GT SCH ×2 (09:49→21:42)
[2018-07-05] MEDS: ASCORBIC ACID 500 MG TABLET GT SCH ×2 (09:49→17:50)
[2018-07-05] MEDS: METHADONE HCL 10 MG TABLET GT SCH (09:49)
[2018-07-05] MEDS: ESCITALOPRAM OXALATE (10 MG) 10 MG TABLET GT SCH (09:49)
[2018-07-05] MEDS: FAMOTIDINE (20 MG) 20 MG TABLET GT SCH ×2 (09:49→21:42)
[2018-07-05] MEDS: MULTIVIT W/MINERALS 1 TAB TABLET GT SCH (09:49)
[2018-07-05] MEDS: PROSTAT (PYXIS) 30 ML UDC GT SCH ×3 (09:49→17:50)
[2018-07-05] MEDS: CALCITRIOL 0.25 MCG CAPSULE PO SCH (09:49)
[2018-07-05] MEDS: CALCIUM CARBONATE 500 MG TAB.CHEW GT SCH ×3 (09:49→17:50)
[2018-07-05 20:32] VITALS: BP 123/80
[2018-07-05] MEDS: ZINC SULFATE 220 MG CAPSULE GT SCH (21:42)
[2018-07-05] MEDS: ENOXAPARIN SODIUM 40 MG/0.4 ML DISP.SYRIN SQ SCH (21:43)
[2018-07-05] MEDS: POLYETHYLENE GLYCOL 3350 17 GM POWD.PACK GT SCH (21:44)
[2018-07-05] MEDS: ATORVASTATIN 10 MG TABLET GT SCH (21:44)
[2018-07-06] MEDS: IPRATROPIUM NEB FS 0.5 MG/2.5 ML AMPUL.NEB NEB SCH ×4 (00:36→19:56)
[2018-07-06] MEDS: SUCRALFATE 1 G/10 ML UDC GT SCH ×4 (05:36→20:30)
[2018-07-06 08:01] VITALS: BP 121/67
[2018-07-06] MEDS: ACIDOPHILUS/BULGARICUS 1 EACH TAB.CHEW GT SCH ×3 (08:51→17:30)
[2018-07-06] MEDS: ESCITALOPRAM OXALATE (10 MG) 10 MG TABLET GT SCH (08:51)
[2018-07-06] MEDS: BACLOFEN (10 MG) 10 MG TABLET GT SCH ×4 (08:51→21:32)
[2018-07-06] MEDS: METHADONE HCL 10 MG TABLET GT SCH (08:52)
[2018-07-06] MEDS: HYDROCODONE/APAP 5/325MG 1 EACH TABLET GT SCH ×2 (08:52→21:33)
[2018-07-06] MEDS: PROSTAT (PYXIS) 30 ML UDC GT SCH ×3 (08:52→17:30)
[2018-07-06] MEDS: ASCORBIC ACID 500 MG TABLET GT SCH ×2 (08:52→17:30)
[2018-07-06] MEDS: FAMOTIDINE (20 MG) 20 MG TABLET GT SCH ×2 (08:52→21:33)
[2018-07-06] MEDS: CALCITRIOL 0.25 MCG CAPSULE PO SCH (08:52)
[2018-07-06] MEDS: CALCIUM CARBONATE 500 MG TAB.CHEW GT SCH ×3 (08:52→17:30)
[2018-07-06] MEDS: MULTIVIT W/MINERALS 1 TAB TABLET GT SCH (08:52)
[2018-07-06] MEDS: DAKINS QUARTER STRENGTH (0.125%) 480 ML BOTTLE TOP SCH ×4 (09:48→22:15)
[2018-07-06] MEDS: NYSTATIN/TRIAMCIN CREAM 15 GM TUBE TP SCH (09:48)
[2018-07-06] MEDS: HYDROGEN PEROXIDE 480 ML BOTTLE TP SCH ×2 (09:48→22:15)
[2018-07-06] MEDS: HYDROGEL DRESSING 90 GM TUBE TP SCH ×4 (09:48→22:15)
--- NOTE | 2018-07-06 14:03 | NUR ---
RAVI made an appointment with assistant loan processor Dr. Hercules for 07/13/18
[2018-07-06] MEDS: HYDROCODONE/APAP 5/325MG 1 EACH TABLET GT PRN (17:30)
--- NOTE | 2018-07-06 19:56 | NUR ---
RT PATIENT RECEIVED TRACHED ON COOL AEROSOL VIA T-MASK. PLACED PATIENT ON MECHANICAL VENTILATION ON ORDERED NOC AC MODE SETTINGS. NO DISTRESS NOTED. REST ROOM MATRON FOR CUFF DONE. TX GIVEN. PT SUCTIONED, SMALL THICK WHITE YELLOW SECRETIONS NOTED. ALARMS SET AND AUDIBLE. VENT CONNECTED TO RED OUTLET. WILL CONT TO MONITOR. Addendum: 07/07/18 at 0141 by DAMON PAZ RT Amended: Links added.
[2018-07-06 20:08] VITALS: BP 141/95
[2018-07-06] MEDS: ENOXAPARIN SODIUM 40 MG/0.4 ML DISP.SYRIN SQ SCH (21:33)
[2018-07-06] MEDS: POLYETHYLENE GLYCOL 3350 17 GM POWD.PACK GT SCH (21:33)
[2018-07-06] MEDS: ZINC SULFATE 220 MG CAPSULE GT SCH (21:33)
[2018-07-06] MEDS: ATORVASTATIN 10 MG TABLET GT SCH (21:33)
[2018-07-07] MEDS: IPRATROPIUM NEB FS 0.5 MG/2.5 ML AMPUL.NEB NEB SCH ×4 (01:06→19:30)
[2018-07-07] MEDS: METHOCARBAMOL (750MG) 750 MG TABLET GT PRN (02:00)
[2018-07-07] MEDS: SUCRALFATE 1 G/10 ML UDC GT SCH ×4 (05:39→20:30)
[2018-07-07 07:48] VITALS: BP 118/75
--- NOTE | 2018-07-07 08:34 | NUR ---
RT PT REC'D TRACH ON MECH VENT THEN PLACED ON COOL AEROSOL ON NOTED SETTINGS PER MD ORDERS. TRACH IS PATENT AND SECURED. TX GIVEN WITH NO ADVERSE REACTION NOTED. SX DONE PRN. FANNYU BAG @ BEDSIDE. NO RESP DISTRESS AT THIS TIME. WILL CONTINUE TO MONITOR. Addendum: 07/07/18 at 0834 by BUFFY SHERWOOD RT Amended: Links added.
[2018-07-07] MEDS: ACIDOPHILUS/BULGARICUS 1 EACH TAB.CHEW GT SCH ×3 (09:39→17:33)
[2018-07-07] MEDS: ESCITALOPRAM OXALATE (10 MG) 10 MG TABLET GT SCH (09:39)
[2018-07-07] MEDS: BACLOFEN (10 MG) 10 MG TABLET GT SCH ×4 (09:39→21:41)
[2018-07-07] MEDS: HYDROCODONE/APAP 5/325MG 1 EACH TABLET GT SCH ×2 (09:40→21:42)
[2018-07-07] MEDS: PROSTAT (PYXIS) 30 ML UDC GT SCH ×3 (09:40→17:33)
[2018-07-07] MEDS: MULTIVIT W/MINERALS 1 TAB TABLET GT SCH (09:40)
[2018-07-07] MEDS: CALCIUM CARBONATE 500 MG TAB.CHEW GT SCH ×3 (09:40→17:33)
[2018-07-07] MEDS: METHADONE HCL 10 MG TABLET GT SCH (09:40)
[2018-07-07] MEDS: FAMOTIDINE (20 MG) 20 MG TABLET GT SCH ×2 (09:40→21:42)
[2018-07-07] MEDS: ASCORBIC ACID 500 MG TABLET GT SCH ×2 (09:40→17:33)
[2018-07-07] MEDS: CALCITRIOL 0.25 MCG CAPSULE PO SCH (09:40)
[2018-07-07] MEDS: HYDROGEN PEROXIDE 480 ML BOTTLE TP SCH ×2 (10:10→22:30)
[2018-07-07] MEDS: HYDROGEL DRESSING 90 GM TUBE TP SCH ×4 (10:10→22:30)
[2018-07-07] MEDS: DAKINS QUARTER STRENGTH (0.125%) 480 ML BOTTLE TOP SCH ×4 (10:10→22:30)
[2018-07-07 19:48] VITALS: BP 119/74
[2018-07-07] MEDS: ZINC SULFATE 220 MG CAPSULE GT SCH (21:42)
[2018-07-07] MEDS: ENOXAPARIN SODIUM 40 MG/0.4 ML DISP.SYRIN SQ SCH (21:42)
[2018-07-07] MEDS: ATORVASTATIN 10 MG TABLET GT SCH (21:42)
[2018-07-07] MEDS: POLYETHYLENE GLYCOL 3350 17 GM POWD.PACK GT SCH (21:43)
[2018-07-08] MEDS: IPRATROPIUM NEB FS 0.5 MG/2.5 ML AMPUL.NEB NEB SCH ×4 (01:10→19:33)
[2018-07-08] MEDS: SUCRALFATE 1 G/10 ML UDC GT SCH ×4 (05:55→20:55)
[2018-07-08 08:42] VITALS: BP 137/86
[2018-07-08] MEDS: DAKINS QUARTER STRENGTH (0.125%) 480 ML BOTTLE TOP SCH ×4 (09:00→20:56)
[2018-07-08] MEDS: HYDROGEN PEROXIDE 480 ML BOTTLE TP SCH ×2 (09:00→20:56)
[2018-07-08] MEDS: HYDROGEL DRESSING 90 GM TUBE TP SCH ×4 (09:00→20:56)
--- NOTE | 2018-07-08 09:00 | NUR ---
Seen and examined by Dr. Seaman, no new order given.
[2018-07-08] MEDS: BACLOFEN (10 MG) 10 MG TABLET GT SCH ×4 (09:04→20:55)
[2018-07-08] MEDS: ACIDOPHILUS/BULGARICUS 1 EACH TAB.CHEW GT SCH ×3 (09:04→16:27)
[2018-07-08] MEDS: METHADONE HCL 10 MG TABLET GT SCH (09:04)
[2018-07-08] MEDS: ESCITALOPRAM OXALATE (10 MG) 10 MG TABLET GT SCH (09:04)
[2018-07-08] MEDS: MULTIVIT W/MINERALS 1 TAB TABLET GT SCH (09:05)
[2018-07-08] MEDS: PROSTAT (PYXIS) 30 ML UDC GT SCH ×3 (09:05→16:27)
[2018-07-08] MEDS: ASCORBIC ACID 500 MG TABLET GT SCH ×2 (09:05→16:27)
[2018-07-08] MEDS: CALCITRIOL 0.25 MCG CAPSULE PO SCH (09:05)
[2018-07-08] MEDS: CALCIUM CARBONATE 500 MG TAB.CHEW GT SCH ×3 (09:05→16:27)
[2018-07-08] MEDS: FAMOTIDINE (20 MG) 20 MG TABLET GT SCH ×2 (09:05→20:55)
[2018-07-08] MEDS: HYDROCODONE/APAP 5/325MG 1 EACH TABLET GT SCH ×2 (10:30→20:55)
--- NOTE | 2018-07-08 11:00 | NUR ---
RT PT IS AWAKE AND ALERT. MONTHLY TRACH CHANGE DONE WITH NEW SHILEY 8 CUFFED. TRACH CHANGE DONE WITH NO COMPLICATIONS. EQUAL BILATERAL BREATH SOUNDS AND CHEST RISE NOTED. NO BLEEDING OR REDNESS NOTICED AT TRACH SITE. PT PLACED BACK ON COOL AEROSOL. NO RESPIRATORY DISTRESS NOTED. Addendum: 07/08/18 at 1300 by ESPERANZA HOOPER RT Amended: Links added.
--- NOTE | 2018-07-08 11:30 | NUR ---
Jackman catheter balloon burst, inserted new cath., tolerated well, no bleeding noted. Draining light yellow color urine. Will continue to monitor.
[2018-07-08 19:48] VITALS: BP 140/79
[2018-07-08] MEDS: ZINC SULFATE 220 MG CAPSULE GT SCH (20:55)
[2018-07-08] MEDS: ENOXAPARIN SODIUM 40 MG/0.4 ML DISP.SYRIN SQ SCH (20:56)
[2018-07-08] MEDS: ATORVASTATIN 10 MG TABLET GT SCH (21:02)
[2018-07-08] MEDS: POLYETHYLENE GLYCOL 3350 17 GM POWD.PACK GT SCH (21:02)
[2018-07-09] MEDS: IPRATROPIUM NEB FS 0.5 MG/2.5 ML AMPUL.NEB NEB SCH ×4 (01:26→19:39)
[2018-07-09] MEDS: SUCRALFATE 1 G/10 ML UDC GT SCH ×4 (05:50→20:59)
--- NOTE | 2018-07-09 07:30 | NUR ---
RT PATIENT PLACED ON C/A PER MD JUAQUIN CORONADO. Addendum: 07/09/18 at 0818 by POLLY SAMSON RT Amended: Links added.
[2018-07-09 07:51] VITALS: BP 132/75
[2018-07-09] MEDS: BACLOFEN (10 MG) 10 MG TABLET GT SCH ×4 (09:38→20:59)
[2018-07-09] MEDS: ACIDOPHILUS/BULGARICUS 1 EACH TAB.CHEW GT SCH ×3 (09:38→17:47)
[2018-07-09] MEDS: ESCITALOPRAM OXALATE (10 MG) 10 MG TABLET GT SCH (09:38)
[2018-07-09] MEDS: METHADONE HCL 10 MG TABLET GT SCH (09:48)
[2018-07-09] MEDS: CALCITRIOL 0.25 MCG CAPSULE PO SCH (09:49)
[2018-07-09] MEDS: CALCIUM CARBONATE 500 MG TAB.CHEW GT SCH ×3 (09:49→17:48)
[2018-07-09] MEDS: FAMOTIDINE (20 MG) 20 MG TABLET GT SCH ×2 (09:49→21:00)
[2018-07-09] MEDS: PROSTAT (PYXIS) 30 ML UDC GT SCH ×3 (09:49→17:48)
[2018-07-09] MEDS: ASCORBIC ACID 500 MG TABLET GT SCH ×2 (09:49→17:48)
[2018-07-09] MEDS: MULTIVIT W/MINERALS 1 TAB TABLET GT SCH (09:49)
[2018-07-09] MEDS: HYDROCODONE/APAP 5/325MG 1 EACH TABLET GT SCH ×2 (11:00→21:00)
[2018-07-09] MEDS: DAKINS QUARTER STRENGTH (0.125%) 480 ML BOTTLE TOP SCH ×4 (12:00→21:01)
[2018-07-09] MEDS: HYDROGEN PEROXIDE 480 ML BOTTLE TP SCH ×2 (12:00→21:01)
[2018-07-09] MEDS: HYDROGEL DRESSING 90 GM TUBE TP SCH ×4 (12:00→21:01)
--- NOTE | 2018-07-09 12:00 | NUR ---
F/C changed as ordered due to previous F/C dislodged with inflated balloon outside patients meatus. Tolerated well. No distress noted. Kept clean and comfortable.
[2018-07-09 19:53] VITALS: BP 137/84
[2018-07-09] MEDS: ZINC SULFATE 220 MG CAPSULE GT SCH (21:00)
[2018-07-09] MEDS: ENOXAPARIN SODIUM 40 MG/0.4 ML DISP.SYRIN SQ SCH (21:00)
[2018-07-09] MEDS: ATORVASTATIN 10 MG TABLET GT SCH (21:01)
[2018-07-09] MEDS: POLYETHYLENE GLYCOL 3350 17 GM POWD.PACK GT SCH (21:01)
[2018-07-10] MEDS: IPRATROPIUM NEB FS 0.5 MG/2.5 ML AMPUL.NEB NEB SCH ×4 (01:39→19:19)
[2018-07-10] MEDS: SUCRALFATE 1 G/10 ML UDC GT SCH ×4 (05:31→20:52)
[2018-07-10 08:23] VITALS: BP 119/73
[2018-07-10] MEDS: DAKINS QUARTER STRENGTH (0.125%) 480 ML BOTTLE TOP SCH ×4 (09:00→20:54)
[2018-07-10] MEDS: HYDROGEN PEROXIDE 480 ML BOTTLE TP SCH ×2 (09:00→20:54)
[2018-07-10] MEDS: HYDROGEL DRESSING 90 GM TUBE TP SCH ×4 (09:00→20:54)
--- NOTE | 2018-07-10 09:00 | NUR ---
Seen and examined by Dr. Ugarte, no new order given. Trach secured and midline, on cool aerosol, tolerating well. GT intact and patent. Nephrostomy tube in place and draining yellow urine, no leaking noted. F/C intact and patent, draining well. Will continue with plan of care.
[2018-07-10] MEDS: ESCITALOPRAM OXALATE (10 MG) 10 MG TABLET GT SCH (09:44)
[2018-07-10] MEDS: ACIDOPHILUS/BULGARICUS 1 EACH TAB.CHEW GT SCH ×3 (09:44→16:47)
[2018-07-10] MEDS: BACLOFEN (10 MG) 10 MG TABLET GT SCH ×4 (09:45→20:52)
[2018-07-10] MEDS: METHADONE HCL 10 MG TABLET GT SCH (09:46)
[2018-07-10] MEDS: ASCORBIC ACID 500 MG TABLET GT SCH ×2 (09:47→16:49)
[2018-07-10] MEDS: CALCIUM CARBONATE 500 MG TAB.CHEW GT SCH ×3 (09:47→16:49)
[2018-07-10] MEDS: CALCITRIOL 0.25 MCG CAPSULE PO SCH (09:47)
[2018-07-10] MEDS: HYDROCODONE/APAP 5/325MG 1 EACH TABLET GT SCH ×2 (09:47→20:53)
[2018-07-10] MEDS: PROSTAT (PYXIS) 30 ML UDC GT SCH ×3 (09:47→16:48)
[2018-07-10] MEDS: FAMOTIDINE (20 MG) 20 MG TABLET GT SCH ×2 (09:47→20:53)
[2018-07-10] MEDS: MULTIVIT W/MINERALS 1 TAB TABLET GT SCH (09:48)
[2018-07-10 20:04] VITALS: BP 110/72
[2018-07-10] MEDS: ZINC SULFATE 220 MG CAPSULE GT SCH (20:53)
[2018-07-10] MEDS: ENOXAPARIN SODIUM 40 MG/0.4 ML DISP.SYRIN SQ SCH (20:54)
[2018-07-10] MEDS: POLYETHYLENE GLYCOL 3350 17 GM POWD.PACK GT SCH (21:00)
[2018-07-10] MEDS: ATORVASTATIN 10 MG TABLET GT SCH (21:00)
[2018-07-11] MEDS: IPRATROPIUM NEB FS 0.5 MG/2.5 ML AMPUL.NEB NEB SCH ×4 (01:08→20:23)
[2018-07-11] MEDS: SUCRALFATE 1 G/10 ML UDC GT SCH ×4 (05:44→20:49)
[2018-07-11 07:57] VITALS: BP 104/63
[2018-07-11] MEDS: DAKINS QUARTER STRENGTH (0.125%) 480 ML BOTTLE TOP SCH ×4 (09:00→21:55)
[2018-07-11] MEDS: HYDROGEN PEROXIDE 480 ML BOTTLE TP SCH ×2 (09:00→21:55)
[2018-07-11] MEDS: HYDROGEL DRESSING 90 GM TUBE TP SCH ×4 (09:00→21:55)
[2018-07-11] MEDS: ACIDOPHILUS/BULGARICUS 1 EACH TAB.CHEW GT SCH ×3 (09:13→16:11)
[2018-07-11] MEDS: ESCITALOPRAM OXALATE (10 MG) 10 MG TABLET GT SCH (09:13)
[2018-07-11] MEDS: BACLOFEN (10 MG) 10 MG TABLET GT SCH ×4 (09:14→21:33)
[2018-07-11] MEDS: METHADONE HCL 10 MG TABLET GT SCH (09:17)
[2018-07-11] MEDS: HYDROCODONE/APAP 5/325MG 1 EACH TABLET GT SCH ×2 (09:18→21:34)
[2018-07-11] MEDS: CALCITRIOL 0.25 MCG CAPSULE PO SCH (09:18)
[2018-07-11] MEDS: CALCIUM CARBONATE 500 MG TAB.CHEW GT SCH ×3 (09:18→16:12)
[2018-07-11] MEDS: MULTIVIT W/MINERALS 1 TAB TABLET GT SCH (09:18)
[2018-07-11] MEDS: ASCORBIC ACID 500 MG TABLET GT SCH ×2 (09:18→16:12)
[2018-07-11] MEDS: PROSTAT (PYXIS) 30 ML UDC GT SCH ×3 (09:18→16:12)
[2018-07-11] MEDS: FAMOTIDINE (20 MG) 20 MG TABLET GT SCH ×2 (09:18→21:34)
--- NOTE | 2018-07-11 17:19 | NUR ---
THIS MORNING PATIENT HAD LOW GRADE TEMP, 99.7, ORAL, COOLING MEASURES WERE RENDERED, LATEST VITAL SIGNS BP 118/78, PULSE 76, RESP RATE 12, TEMPERATURE 98.3 ORAL.
[2018-07-11 19:55] VITALS: BP 119/74
[2018-07-11] MEDS: ZINC SULFATE 220 MG CAPSULE GT SCH (21:34)
[2018-07-11] MEDS: ENOXAPARIN SODIUM 40 MG/0.4 ML DISP.SYRIN SQ SCH (21:35)
[2018-07-11] MEDS: POLYETHYLENE GLYCOL 3350 17 GM POWD.PACK GT SCH (21:35)
[2018-07-11] MEDS: ATORVASTATIN 10 MG TABLET GT SCH (21:35)
[2018-07-12] MEDS: METHOCARBAMOL (750MG) 750 MG TABLET GT PRN (01:10)
[2018-07-12] MEDS: IPRATROPIUM NEB FS 0.5 MG/2.5 ML AMPUL.NEB NEB SCH ×4 (01:20→19:30)
[2018-07-12] MEDS: HYDROCODONE/APAP 5/325MG 1 EACH TABLET GT PRN (05:07)
[2018-07-12] MEDS: SUCRALFATE 1 G/10 ML UDC GT SCH ×4 (06:01→20:21)
[2018-07-12 07:52] VITALS: BP 122/65
[2018-07-12] MEDS: HYDROCODONE/APAP 5/325MG 1 EACH TABLET GT SCH ×2 (09:02→20:21)
[2018-07-12] MEDS: ACIDOPHILUS/BULGARICUS 1 EACH TAB.CHEW GT SCH ×3 (09:08→17:50)
[2018-07-12] MEDS: CALCIUM CARBONATE 500 MG TAB.CHEW GT SCH ×3 (09:08→17:51)
[2018-07-12] MEDS: ESCITALOPRAM OXALATE (10 MG) 10 MG TABLET GT SCH (09:08)
[2018-07-12] MEDS: BACLOFEN (10 MG) 10 MG TABLET GT SCH ×4 (09:08→20:21)
[2018-07-12] MEDS: MULTIVIT W/MINERALS 1 TAB TABLET GT SCH (09:08)
[2018-07-12] MEDS: CALCITRIOL 0.25 MCG CAPSULE PO SCH (09:08)
[2018-07-12] MEDS: ASCORBIC ACID 500 MG TABLET GT SCH ×2 (09:08→17:51)
[2018-07-12] MEDS: FAMOTIDINE (20 MG) 20 MG TABLET GT SCH ×2 (09:08→20:21)
[2018-07-12] MEDS: PROSTAT (PYXIS) 30 ML UDC GT SCH ×3 (09:08→17:51)
[2018-07-12] MEDS: HYDROGEL DRESSING 90 GM TUBE TP SCH ×4 (09:35→20:22)
[2018-07-12] MEDS: DAKINS QUARTER STRENGTH (0.125%) 480 ML BOTTLE TOP SCH ×4 (09:35→20:22)
[2018-07-12] MEDS: HYDROGEN PEROXIDE 480 ML BOTTLE TP SCH ×2 (09:35→20:22)
[2018-07-12] MEDS: METHADONE HCL 10 MG TABLET GT SCH (10:02)
[2018-07-12] MEDS: ZINC SULFATE 220 MG CAPSULE GT SCH (20:21)
[2018-07-12] MEDS: ENOXAPARIN SODIUM 40 MG/0.4 ML DISP.SYRIN SQ SCH (20:22)
--- NOTE | 2018-07-12 20:56 | NUR ---
RT PATIENT RECEIVED TRACHED ON COOL AEROSOL VIA T-MASK. PLACED PATIENT ON MECHANICAL VENTILATION ON ORDERED NOC SETTINGS. NO DISTRESS NOTED. PROFESSIONAL DEVELOPMENT MANAGER FOR CUFF DONE. TX GIVEN. PT SUCTIONED, SMALL THICK WHITE YELLOW SECRETIONS NOTED. ALARMS SET AND AUDIBLE. VENT CONNECTED TO RED OUTLET. WILL CONT TO MONITOR. Addendum: 07/12/18 at 2056 by DAMON PAZ RT Amended: Links added.
[2018-07-12] MEDS: MAGNESIUM HYDROXIDE 30 ML UDC GT PRN (21:10)
[2018-07-12] MEDS: ATORVASTATIN 10 MG TABLET GT SCH (21:10)
[2018-07-12] MEDS: POLYETHYLENE GLYCOL 3350 17 GM POWD.PACK GT SCH (21:10)
[2018-07-13] MEDS: IPRATROPIUM NEB FS 0.5 MG/2.5 ML AMPUL.NEB NEB SCH ×4 (01:33→20:11)
[2018-07-13] MEDS: SUCRALFATE 1 G/10 ML UDC GT SCH ×4 (05:32→20:15)
[2018-07-13 08:02] VITALS: BP 110/72
[2018-07-13] MEDS: HYDROCODONE/APAP 5/325MG 1 EACH TABLET GT SCH ×2 (09:00→20:15)
[2018-07-13] MEDS: HYDROGEL DRESSING 90 GM TUBE TP SCH ×4 (09:30→20:16)
[2018-07-13] MEDS: DAKINS QUARTER STRENGTH (0.125%) 480 ML BOTTLE TOP SCH ×4 (09:30→20:16)
[2018-07-13] MEDS: HYDROGEN PEROXIDE 480 ML BOTTLE TP SCH ×2 (09:30→20:16)
[2018-07-13] MEDS: ESCITALOPRAM OXALATE (10 MG) 10 MG TABLET GT SCH (09:50)
[2018-07-13] MEDS: ACIDOPHILUS/BULGARICUS 1 EACH TAB.CHEW GT SCH ×3 (09:50→17:30)
[2018-07-13] MEDS: BACLOFEN (10 MG) 10 MG TABLET GT SCH ×4 (09:50→20:15)
[2018-07-13] MEDS: METHADONE HCL 10 MG TABLET GT SCH (09:53)
[2018-07-13] MEDS: FAMOTIDINE (20 MG) 20 MG TABLET GT SCH ×2 (09:55→20:15)
[2018-07-13] MEDS: ASCORBIC ACID 500 MG TABLET GT SCH ×2 (09:55→17:30)
[2018-07-13] MEDS: PROSTAT (PYXIS) 30 ML UDC GT SCH ×3 (09:55→17:30)
[2018-07-13] MEDS: CALCITRIOL 0.25 MCG CAPSULE PO SCH (09:55)
[2018-07-13] MEDS: CALCIUM CARBONATE 500 MG TAB.CHEW GT SCH ×3 (09:55→17:30)
[2018-07-13] MEDS: MULTIVIT W/MINERALS 1 TAB TABLET GT SCH (09:55)
--- NOTE | 2018-07-13 12:30 | NUR ---
Seen and examined by Dr. Seaman NNO given.
[2018-07-13 19:56] VITALS: BP 127/65
--- NOTE | 2018-07-13 20:11 | NUR ---
RT PATIENT RECEIVED TRACHED ON COOL AEROSOL VIA T-MASK. PLACED PATIENT ON MECHANICAL VENTILATION ON ORDERED NOC SETTINGS. NO DISTRESS NOTED. FORESTRY TECHNICIAN FOR CUFF DONE. TX GIVEN. PT SUCTIONED, SMALL THICK WHITE YELLOW SECRETIONS NOTED. ALARMS SET AND AUDIBLE. VENT CONNECTED TO RED OUTLET. WILL CONT TO MONITOR. Addendum: 07/13/18 at 2053 by DAMON PAZ RT Amended: Links added.
[2018-07-13] MEDS: ZINC SULFATE 220 MG CAPSULE GT SCH (20:15)
[2018-07-13] MEDS: ENOXAPARIN SODIUM 40 MG/0.4 ML DISP.SYRIN SQ SCH (20:16)
[2018-07-13] MEDS: ATORVASTATIN 10 MG TABLET GT SCH (21:11)
[2018-07-13] MEDS: POLYETHYLENE GLYCOL 3350 17 GM POWD.PACK GT SCH (21:11)
[2018-07-14] MEDS: IPRATROPIUM NEB FS 0.5 MG/2.5 ML AMPUL.NEB NEB SCH ×4 (01:28→19:28)
[2018-07-14] MEDS: SUCRALFATE 1 G/10 ML UDC GT SCH ×4 (05:34→20:43)
[2018-07-14 07:50] VITALS: BP 137/71
[2018-07-14] MEDS: CADEXOMER IODINE 40 GM TUBE TP SCH (09:00)
[2018-07-14] MEDS: HYDROGEL DRESSING 90 GM TUBE TP SCH ×4 (09:00→20:37)
[2018-07-14] MEDS: DAKINS QUARTER STRENGTH (0.125%) 480 ML BOTTLE TOP SCH ×4 (09:00→20:37)
[2018-07-14] MEDS: HYDROGEN PEROXIDE 480 ML BOTTLE TP SCH ×2 (09:00→20:37)
[2018-07-14] MEDS: BACLOFEN (10 MG) 10 MG TABLET GT SCH ×4 (09:04→20:35)
[2018-07-14] MEDS: ACIDOPHILUS/BULGARICUS 1 EACH TAB.CHEW GT SCH ×3 (09:04→17:00)
[2018-07-14] MEDS: METHADONE HCL 10 MG TABLET GT SCH (09:06)
[2018-07-14] MEDS: HYDROCODONE/APAP 5/325MG 1 EACH TABLET GT SCH ×2 (09:06→20:36)
[2018-07-14] MEDS: FAMOTIDINE (20 MG) 20 MG TABLET GT SCH ×2 (09:06→20:36)
[2018-07-14] MEDS: MULTIVIT W/MINERALS 1 TAB TABLET GT SCH (09:07)
[2018-07-14] MEDS: ASCORBIC ACID 500 MG TABLET GT SCH ×2 (09:07→17:00)
[2018-07-14] MEDS: PROSTAT (PYXIS) 30 ML UDC GT SCH ×3 (09:07→17:00)
[2018-07-14] MEDS: CALCITRIOL 0.25 MCG CAPSULE PO SCH (09:07)
[2018-07-14] MEDS: CALCIUM CARBONATE 500 MG TAB.CHEW GT SCH ×3 (09:07→17:00)
[2018-07-14] MEDS: ESCITALOPRAM OXALATE (10 MG) 10 MG TABLET GT SCH (09:08)
[2018-07-14 19:42] VITALS: BP 119/74
[2018-07-14] MEDS: ZINC SULFATE 220 MG CAPSULE GT SCH (20:36)
[2018-07-14] MEDS: ENOXAPARIN SODIUM 40 MG/0.4 ML DISP.SYRIN SQ SCH (20:37)
[2018-07-14] MEDS: ATORVASTATIN 10 MG TABLET GT SCH (21:06)
[2018-07-14] MEDS: POLYETHYLENE GLYCOL 3350 17 GM POWD.PACK GT SCH (21:06)
[2018-07-15] MEDS: IPRATROPIUM NEB FS 0.5 MG/2.5 ML AMPUL.NEB NEB SCH ×4 (01:32→20:15)
[2018-07-15] MEDS: HYDROCODONE/APAP 5/325MG 1 EACH TABLET GT PRN (05:22)
[2018-07-15] MEDS: MAGNESIUM HYDROXIDE 30 ML UDC GT PRN (05:31)
[2018-07-15] MEDS: SUCRALFATE 1 G/10 ML UDC GT SCH ×4 (05:31→20:30)
[2018-07-15 08:02] VITALS: BP 142/70
[2018-07-15] MEDS: ESCITALOPRAM OXALATE (10 MG) 10 MG TABLET GT SCH (08:57)
[2018-07-15] MEDS: BACLOFEN (10 MG) 10 MG TABLET GT SCH ×4 (08:57→21:43)
[2018-07-15] MEDS: FAMOTIDINE (20 MG) 20 MG TABLET GT SCH ×2 (08:57→21:43)
[2018-07-15] MEDS: METHADONE HCL 10 MG TABLET GT SCH (08:57)
[2018-07-15] MEDS: MULTIVIT W/MINERALS 1 TAB TABLET GT SCH (08:57)
[2018-07-15] MEDS: PROSTAT (PYXIS) 30 ML UDC GT SCH ×3 (08:57→17:02)
[2018-07-15] MEDS: ACIDOPHILUS/BULGARICUS 1 EACH TAB.CHEW GT SCH ×3 (08:57→17:02)
[2018-07-15] MEDS: CALCIUM CARBONATE 500 MG TAB.CHEW GT SCH ×3 (08:57→17:02)
[2018-07-15] MEDS: CALCITRIOL 0.25 MCG CAPSULE PO SCH (08:58)
[2018-07-15] MEDS: ASCORBIC ACID 500 MG TABLET GT SCH ×2 (08:58→17:02)
[2018-07-15] MEDS: CADEXOMER IODINE 40 GM TUBE TP SCH (09:00)
[2018-07-15] MEDS: HYDROGEL DRESSING 90 GM TUBE TP SCH ×4 (09:00→21:44)
[2018-07-15] MEDS: DAKINS QUARTER STRENGTH (0.125%) 480 ML BOTTLE TOP SCH ×4 (09:00→21:44)
[2018-07-15] MEDS: HYDROGEN PEROXIDE 480 ML BOTTLE TP SCH ×2 (09:00→21:44)
[2018-07-15] MEDS: HYDROCODONE/APAP 5/325MG 1 EACH TABLET GT SCH ×2 (10:30→21:43)
[2018-07-15 19:46] VITALS: BP 130/74
[2018-07-15] MEDS: ATORVASTATIN 10 MG TABLET GT SCH (21:44)
[2018-07-15] MEDS: ENOXAPARIN SODIUM 40 MG/0.4 ML DISP.SYRIN SQ SCH (21:44)
[2018-07-15] MEDS: ZINC SULFATE 220 MG CAPSULE GT SCH (21:44)
[2018-07-15] MEDS: POLYETHYLENE GLYCOL 3350 17 GM POWD.PACK GT SCH (21:45)
[2018-07-16] MEDS: IPRATROPIUM NEB FS 0.5 MG/2.5 ML AMPUL.NEB NEB SCH ×4 (01:26→19:46)
[2018-07-16] MEDS: SUCRALFATE 1 G/10 ML UDC GT SCH ×4 (06:33→20:41)
[2018-07-16 07:32] VITALS: BP 128/74
[2018-07-16] MEDS: ACIDOPHILUS/BULGARICUS 1 EACH TAB.CHEW GT SCH ×3 (09:35→17:49)
[2018-07-16] MEDS: BACLOFEN (10 MG) 10 MG TABLET GT SCH ×4 (09:36→20:41)
[2018-07-16] MEDS: METHADONE HCL 10 MG TABLET GT SCH (09:36)
[2018-07-16] MEDS: ESCITALOPRAM OXALATE (10 MG) 10 MG TABLET GT SCH (09:36)
[2018-07-16] MEDS: ASCORBIC ACID 500 MG TABLET GT SCH ×2 (09:37→17:49)
[2018-07-16] MEDS: MULTIVIT W/MINERALS 1 TAB TABLET GT SCH (09:37)
[2018-07-16] MEDS: PROSTAT (PYXIS) 30 ML UDC GT SCH ×3 (09:37→17:49)
[2018-07-16] MEDS: CALCIUM CARBONATE 500 MG TAB.CHEW GT SCH ×3 (09:37→17:49)
[2018-07-16] MEDS: FAMOTIDINE (20 MG) 20 MG TABLET GT SCH ×2 (09:37→20:41)
[2018-07-16] MEDS: CALCITRIOL 0.25 MCG CAPSULE PO SCH (09:38)
[2018-07-16] MEDS: HYDROCODONE/APAP 5/325MG 1 EACH TABLET GT SCH ×2 (13:00→20:44)
[2018-07-16] MEDS: HYDROGEL DRESSING 90 GM TUBE TP SCH ×4 (14:00→20:47)
[2018-07-16] MEDS: DAKINS QUARTER STRENGTH (0.125%) 480 ML BOTTLE TOP SCH ×4 (14:00→20:47)
[2018-07-16] MEDS: CADEXOMER IODINE 40 GM TUBE TP SCH (14:00)
[2018-07-16] MEDS: HYDROGEN PEROXIDE 480 ML BOTTLE TP SCH ×2 (14:00→20:47)
[2018-07-16 20:00] VITALS: BP 122/74
[2018-07-16 20:25] VITALS: BP 122/74
[2018-07-16] MEDS: ZINC SULFATE 220 MG CAPSULE GT SCH (20:46)
[2018-07-16] MEDS: ENOXAPARIN SODIUM 40 MG/0.4 ML DISP.SYRIN SQ SCH (20:46)
[2018-07-16] MEDS: ATORVASTATIN 10 MG TABLET GT SCH (21:01)
[2018-07-16] MEDS: POLYETHYLENE GLYCOL 3350 17 GM POWD.PACK GT SCH (21:01)
[2018-07-17] MEDS: IPRATROPIUM NEB FS 0.5 MG/2.5 ML AMPUL.NEB NEB SCH ×4 (00:44→19:34)
[2018-07-17] MEDS: HYDROCODONE/APAP 5/325MG 1 EACH TABLET GT PRN (00:46)
[2018-07-17] MEDS: SUCRALFATE 1 G/10 ML UDC GT SCH ×4 (06:17→20:53)
[2018-07-17 07:36] VITALS: BP 122/75
[2018-07-17] MEDS: ACIDOPHILUS/BULGARICUS 1 EACH TAB.CHEW GT SCH ×3 (08:37→17:00)
[2018-07-17] MEDS: METHADONE HCL 10 MG TABLET GT SCH (08:37)
[2018-07-17] MEDS: BACLOFEN (10 MG) 10 MG TABLET GT SCH ×4 (08:37→20:53)
[2018-07-17] MEDS: ESCITALOPRAM OXALATE (10 MG) 10 MG TABLET GT SCH (08:37)
[2018-07-17] MEDS: PROSTAT (PYXIS) 30 ML UDC GT SCH ×3 (08:38→17:00)
[2018-07-17] MEDS: CALCIUM CARBONATE 500 MG TAB.CHEW GT SCH ×3 (08:38→17:00)
[2018-07-17] MEDS: MULTIVIT W/MINERALS 1 TAB TABLET GT SCH (08:38)
[2018-07-17] MEDS: ASCORBIC ACID 500 MG TABLET GT SCH ×2 (08:38→17:00)
[2018-07-17] MEDS: FAMOTIDINE (20 MG) 20 MG TABLET GT SCH ×2 (08:38→20:54)
[2018-07-17] MEDS: CALCITRIOL 0.25 MCG CAPSULE PO SCH (08:38)
[2018-07-17] MEDS: HYDROCODONE/APAP 5/325MG 1 EACH TABLET GT SCH ×2 (08:38→20:54)
[2018-07-17] MEDS: CADEXOMER IODINE 40 GM TUBE TP SCH (09:00)
[2018-07-17] MEDS: HYDROGEN PEROXIDE 480 ML BOTTLE TP SCH ×2 (09:00→21:42)
[2018-07-17] MEDS: HYDROGEL DRESSING 90 GM TUBE TP SCH ×4 (09:00→21:42)
[2018-07-17] MEDS: DAKINS QUARTER STRENGTH (0.125%) 480 ML BOTTLE TOP SCH ×4 (09:00→21:41)
[2018-07-17 19:54] VITALS: BP 125/87
[2018-07-17] MEDS: ENOXAPARIN SODIUM 40 MG/0.4 ML DISP.SYRIN SQ SCH (20:54)
[2018-07-17] MEDS: ZINC SULFATE 220 MG CAPSULE GT SCH (20:54)
[2018-07-17] MEDS: ATORVASTATIN 10 MG TABLET GT SCH (21:42)
[2018-07-17] MEDS: POLYETHYLENE GLYCOL 3350 17 GM POWD.PACK GT SCH (21:42)
[2018-07-18] MEDS: IPRATROPIUM NEB FS 0.5 MG/2.5 ML AMPUL.NEB NEB SCH ×4 (01:03→19:08)
[2018-07-18] MEDS: SUCRALFATE 1 G/10 ML UDC GT SCH ×4 (05:40→20:53)
[2018-07-18 07:21] VITALS: BP 118/75
[2018-07-18] MEDS: PROSTAT (PYXIS) 30 ML UDC GT SCH ×3 (09:00→17:00)
[2018-07-18] MEDS: HYDROGEN PEROXIDE 480 ML BOTTLE TP SCH ×2 (09:00→21:36)
[2018-07-18] MEDS: FAMOTIDINE (20 MG) 20 MG TABLET GT SCH ×2 (09:00→20:53)
[2018-07-18] MEDS: CADEXOMER IODINE 40 GM TUBE TP SCH (09:00)
[2018-07-18] MEDS: HYDROGEL DRESSING 90 GM TUBE TP SCH ×4 (09:00→21:36)
[2018-07-18] MEDS: CALCITRIOL 0.25 MCG CAPSULE PO SCH (09:00)
[2018-07-18] MEDS: DAKINS QUARTER STRENGTH (0.125%) 480 ML BOTTLE TOP SCH ×2 (09:00)
[2018-07-18] MEDS: ASCORBIC ACID 500 MG TABLET GT SCH ×2 (09:00→17:00)
[2018-07-18] MEDS: HYDROCODONE/APAP 5/325MG 1 EACH TABLET GT SCH ×2 (09:00→20:53)
[2018-07-18] MEDS: MULTIVIT W/MINERALS 1 TAB TABLET GT SCH (09:00)
[2018-07-18] MEDS: CALCIUM CARBONATE 500 MG TAB.CHEW GT SCH ×3 (09:00→17:00)
[2018-07-18] MEDS: METHADONE HCL 10 MG TABLET GT SCH (09:00)
[2018-07-18] MEDS: ESCITALOPRAM OXALATE (10 MG) 10 MG TABLET GT SCH (09:59)
[2018-07-18] MEDS: ACIDOPHILUS/BULGARICUS 1 EACH TAB.CHEW GT SCH ×3 (09:59→17:00)
[2018-07-18] MEDS: BACLOFEN (10 MG) 10 MG TABLET GT SCH ×4 (10:00→20:53)
--- NOTE | 2018-07-18 10:14 | NUR ---
Patient seen by Dr. Ugarte, no new orders at this time. Vital signs stable, patient lying down comfortably. Bed at the lowest setting. BMV at bedside.
[2018-07-18] MEDS: MAGNESIUM HYDROXIDE 30 ML UDC GT PRN (18:20)
[2018-07-18 20:03] VITALS: BP 117/70
[2018-07-18] MEDS: ZINC SULFATE 220 MG CAPSULE GT SCH (20:53)
[2018-07-18] MEDS: ENOXAPARIN SODIUM 40 MG/0.4 ML DISP.SYRIN SQ SCH (20:54)
[2018-07-18] MEDS: POLYETHYLENE GLYCOL 3350 17 GM POWD.PACK GT SCH (21:36)
[2018-07-18] MEDS: ATORVASTATIN 10 MG TABLET GT SCH (21:36)
[2018-07-19] MEDS: IPRATROPIUM NEB FS 0.5 MG/2.5 ML AMPUL.NEB NEB SCH ×4 (00:41→19:53)
[2018-07-19] MEDS: SUCRALFATE 1 G/10 ML UDC GT SCH ×4 (05:56→20:21)
[2018-07-19 07:56] VITALS: BP 128/69
[2018-07-19] MEDS: ACIDOPHILUS/BULGARICUS 1 EACH TAB.CHEW GT SCH ×3 (08:56→17:00)
[2018-07-19] MEDS: ASCORBIC ACID 500 MG TABLET GT SCH ×2 (08:56→17:00)
[2018-07-19] MEDS: FAMOTIDINE (20 MG) 20 MG TABLET GT SCH ×2 (08:56→20:22)
[2018-07-19] MEDS: CALCITRIOL 0.25 MCG CAPSULE PO SCH (08:56)
[2018-07-19] MEDS: BACLOFEN (10 MG) 10 MG TABLET GT SCH ×4 (08:56→20:22)
[2018-07-19] MEDS: MULTIVIT W/MINERALS 1 TAB TABLET GT SCH (08:56)
[2018-07-19] MEDS: METHADONE HCL 10 MG TABLET GT SCH (08:56)
[2018-07-19] MEDS: PROSTAT (PYXIS) 30 ML UDC GT SCH ×3 (08:56→17:00)
[2018-07-19] MEDS: ESCITALOPRAM OXALATE (10 MG) 10 MG TABLET GT SCH (08:56)
[2018-07-19] MEDS: HYDROCODONE/APAP 5/325MG 1 EACH TABLET GT SCH ×2 (08:56→20:22)
[2018-07-19] MEDS: CALCIUM CARBONATE 500 MG TAB.CHEW GT SCH ×3 (08:56→17:00)
[2018-07-19] MEDS: HYDROGEN PEROXIDE 480 ML BOTTLE TP SCH ×2 (09:00→20:23)
[2018-07-19] MEDS: DAKINS HALF STRENGTH (0.25%) 480 ML BOTTLE TOP SCH ×2 (09:00→20:22)
[2018-07-19] MEDS: HYDROGEL DRESSING 90 GM TUBE TP SCH ×4 (09:00→20:23)
[2018-07-19] MEDS: CADEXOMER IODINE 40 GM TUBE TP SCH (09:00)
[2018-07-19] MEDS ORDERED: DAKINS HALF STRENGTH (0.25%) 480 ML BOTTLE TOP SCH (09:00)
[2018-07-19] MEDS: DAKINS QUARTER STRENGTH (0.125%) 480 ML BOTTLE TOP SCH ×2 (09:00→20:22)
[2018-07-19] MEDS: GABAPENTIN 300 MG CAPSULE GT SCH ×2 (13:00→17:00)
--- NOTE | 2018-07-19 13:30 | NUR ---
Seen by Dr Lemos's PRODUCT SAFETY OFFICER Helen Edmond. She ordered to resume Neurontin 300 mg GT TID for neuropathic pain. Pt aware of order.
[2018-07-19 19:48] VITALS: BP 122/74
[2018-07-19] MEDS: ENOXAPARIN SODIUM 40 MG/0.4 ML DISP.SYRIN SQ SCH (20:22)
[2018-07-19] MEDS: ZINC SULFATE 220 MG CAPSULE GT SCH (20:22)
[2018-07-19] MEDS: MAGNESIUM HYDROXIDE 30 ML UDC GT PRN (20:23)
[2018-07-19] MEDS: POLYETHYLENE GLYCOL 3350 17 GM POWD.PACK GT SCH (21:14)
[2018-07-19] MEDS: ATORVASTATIN 10 MG TABLET GT SCH (21:14)
[2018-07-20] MEDS: IPRATROPIUM NEB FS 0.5 MG/2.5 ML AMPUL.NEB NEB SCH ×4 (00:45→20:20)
[2018-07-20] MEDS: METHOCARBAMOL (750MG) 750 MG TABLET GT PRN (01:55)
[2018-07-20] MEDS: SUCRALFATE 1 G/10 ML UDC GT SCH ×4 (05:36→20:17)
[2018-07-20 07:57] VITALS: BP 138/68
[2018-07-20] MEDS: DAKINS QUARTER STRENGTH (0.125%) 480 ML BOTTLE TOP SCH ×2 (09:00→20:18)
[2018-07-20] MEDS: HYDROGEN PEROXIDE 480 ML BOTTLE TP SCH ×2 (09:00→20:18)
[2018-07-20] MEDS: CADEXOMER IODINE 40 GM TUBE TP SCH (09:00)
[2018-07-20] MEDS: DAKINS HALF STRENGTH (0.25%) 480 ML BOTTLE TOP SCH ×2 (09:00→20:18)
[2018-07-20] MEDS: HYDROGEL DRESSING 90 GM TUBE TP SCH ×4 (09:00→20:18)
[2018-07-20] MEDS: ACIDOPHILUS/BULGARICUS 1 EACH TAB.CHEW GT SCH ×3 (09:17→17:05)
[2018-07-20] MEDS: CALCITRIOL 0.25 MCG CAPSULE PO SCH (09:17)
[2018-07-20] MEDS: ESCITALOPRAM OXALATE (10 MG) 10 MG TABLET GT SCH (09:17)
[2018-07-20] MEDS: FAMOTIDINE (20 MG) 20 MG TABLET GT SCH ×2 (09:17→20:17)
[2018-07-20] MEDS: HYDROCODONE/APAP 5/325MG 1 EACH TABLET GT SCH ×2 (09:17→21:09)
[2018-07-20] MEDS: METHADONE HCL 10 MG TABLET GT SCH (09:17)
[2018-07-20] MEDS: BACLOFEN (10 MG) 10 MG TABLET GT SCH ×4 (09:17→20:17)
[2018-07-20] MEDS: ASCORBIC ACID 500 MG TABLET GT SCH ×2 (09:17→17:05)
[2018-07-20] MEDS: MULTIVIT W/MINERALS 1 TAB TABLET GT SCH (09:17)
[2018-07-20] MEDS: CALCIUM CARBONATE 500 MG TAB.CHEW GT SCH ×3 (09:17→17:05)
[2018-07-20] MEDS: PROSTAT (PYXIS) 30 ML UDC GT SCH ×3 (09:17→17:05)
[2018-07-20] MEDS: GABAPENTIN 300 MG CAPSULE GT SCH ×3 (09:19→17:05)
--- NOTE | 2018-07-20 15:26 | NUR ---
INTERDISCIPLINARY PLAN OF CARE CONFERENCE was held today. Resident's sister in law attended the meeting. Dr. Ugarte and the interdisciplinary team discussed the current plan of care in detail. Current orders as well as treatments and medications were reviewed. Patient's nephrostomy tube was replaced on 06/25/18 draining well, no hematuria. patient's wound showing some progress with the current treatment plan. NNO given. Dr. Seaman made rounds with order to do CBC and CMP on Monday. Order carried out.
[2018-07-20 19:43] VITALS: BP 114/68
[2018-07-20] MEDS: ZINC SULFATE 220 MG CAPSULE GT SCH (20:17)
[2018-07-20] MEDS: ENOXAPARIN SODIUM 40 MG/0.4 ML DISP.SYRIN SQ SCH (20:18)
--- NOTE | 2018-07-20 20:55 | NUR ---
PT RCVD TRACH'D ON COOL AEROSOL. PLACED PT ON MECHANICAL VENT PER MD ORDER WITH CHARTED SETTINGS. HHN TX TERRANCE WELL. SX DONE. PT TRACH IS PATENT AND SECURE. VENT PLUGGED INTO RED OUTLET. ALARMS ARE ON AND AUDIBLE. AMBU BAG AT BEDSIDE. WILL CONTINUE TO MONITOR. Addendum: 07/20/18 at 2055 by LUCIANA TRIMBLE RT Amended: Links added.
[2018-07-20] MEDS: ATORVASTATIN 10 MG TABLET GT SCH (21:08)
[2018-07-20] MEDS: POLYETHYLENE GLYCOL 3350 17 GM POWD.PACK GT SCH (21:08)
[2018-07-21] MEDS: IPRATROPIUM NEB FS 0.5 MG/2.5 ML AMPUL.NEB NEB SCH ×4 (01:13→19:49)
[2018-07-21] MEDS: SUCRALFATE 1 G/10 ML UDC GT SCH ×4 (05:43→20:24)
[2018-07-21 08:00] VITALS: BP 128/72
[2018-07-21] MEDS: CALCIUM CARBONATE 500 MG TAB.CHEW GT SCH ×3 (09:00→17:50)
[2018-07-21] MEDS: HYDROGEN PEROXIDE 480 ML BOTTLE TP SCH ×2 (09:00→20:26)
[2018-07-21] MEDS: HYDROGEL DRESSING 90 GM TUBE TP SCH ×4 (09:00→20:26)
[2018-07-21] MEDS: CADEXOMER IODINE 40 GM TUBE TP SCH (09:00)
[2018-07-21] MEDS: DAKINS QUARTER STRENGTH (0.125%) 480 ML BOTTLE TOP SCH ×2 (09:00→20:26)
[2018-07-21] MEDS: CALCITRIOL 0.25 MCG CAPSULE PO SCH (09:00)
[2018-07-21] MEDS: HYDROCODONE/APAP 5/325MG 1 EACH TABLET GT SCH ×2 (09:00→20:25)
[2018-07-21] MEDS: DAKINS HALF STRENGTH (0.25%) 480 ML BOTTLE TOP SCH ×2 (09:00→20:26)
[2018-07-21] MEDS: MULTIVIT W/MINERALS 1 TAB TABLET GT SCH (09:00)
[2018-07-21] MEDS: ESCITALOPRAM OXALATE (10 MG) 10 MG TABLET GT SCH (09:57)
[2018-07-21] MEDS: BACLOFEN (10 MG) 10 MG TABLET GT SCH ×4 (09:57→20:24)
[2018-07-21] MEDS: ACIDOPHILUS/BULGARICUS 1 EACH TAB.CHEW GT SCH ×3 (09:57→17:50)
[2018-07-21] MEDS: GABAPENTIN 300 MG CAPSULE GT SCH ×3 (09:58→17:50)
[2018-07-21] MEDS: METHADONE HCL 10 MG TABLET GT SCH (09:58)
[2018-07-21] MEDS: ASCORBIC ACID 500 MG TABLET GT SCH ×2 (09:59→17:50)
[2018-07-21] MEDS: PROSTAT (PYXIS) 30 ML UDC GT SCH ×3 (09:59→17:50)
[2018-07-21] MEDS: FAMOTIDINE (20 MG) 20 MG TABLET GT SCH ×2 (09:59→20:25)
[2018-07-21 19:38] VITALS: BP 114/66
[2018-07-21] MEDS: ZINC SULFATE 220 MG CAPSULE GT SCH (20:25)
[2018-07-21] MEDS: ENOXAPARIN SODIUM 40 MG/0.4 ML DISP.SYRIN SQ SCH (20:26)
[2018-07-21] MEDS: ATORVASTATIN 10 MG TABLET GT SCH (21:19)
[2018-07-21] MEDS: POLYETHYLENE GLYCOL 3350 17 GM POWD.PACK GT SCH (22:20)
[2018-07-22] MEDS: IPRATROPIUM NEB FS 0.5 MG/2.5 ML AMPUL.NEB NEB SCH ×4 (01:25→19:31)
[2018-07-22] MEDS: MAGNESIUM HYDROXIDE 30 ML UDC GT PRN (04:32)
[2018-07-22] MEDS: SUCRALFATE 1 G/10 ML UDC GT SCH ×4 (05:30→20:30)
[2018-07-22 08:07] VITALS: BP 145/76
[2018-07-22] MEDS: BACLOFEN (10 MG) 10 MG TABLET GT SCH ×4 (09:03→21:00)
[2018-07-22] MEDS: ESCITALOPRAM OXALATE (10 MG) 10 MG TABLET GT SCH (09:03)
[2018-07-22] MEDS: ACIDOPHILUS/BULGARICUS 1 EACH TAB.CHEW GT SCH ×3 (09:03→16:55)
[2018-07-22] MEDS: GABAPENTIN 300 MG CAPSULE GT SCH ×2 (09:04→12:33)
[2018-07-22] MEDS: MULTIVIT W/MINERALS 1 TAB TABLET GT SCH (09:04)
[2018-07-22] MEDS: ASCORBIC ACID 500 MG TABLET GT SCH ×2 (09:04→16:55)
[2018-07-22] MEDS: CALCIUM CARBONATE 500 MG TAB.CHEW GT SCH ×3 (09:04→16:55)
[2018-07-22] MEDS: METHADONE HCL 10 MG TABLET GT SCH (09:04)
[2018-07-22] MEDS: PROSTAT (PYXIS) 30 ML UDC GT SCH ×3 (09:04→16:55)
[2018-07-22] MEDS: CALCITRIOL 0.25 MCG CAPSULE PO SCH (09:04)
[2018-07-22] MEDS: FAMOTIDINE (20 MG) 20 MG TABLET GT SCH ×2 (09:04→21:00)
[2018-07-22] MEDS: HYDROCODONE/APAP 5/325MG 1 EACH TABLET GT SCH ×2 (10:30→21:00)
[2018-07-22] MEDS: HYDROGEN PEROXIDE 480 ML BOTTLE TP SCH ×2 (10:30→21:00)
[2018-07-22] MEDS: HYDROGEL DRESSING 90 GM TUBE TP SCH ×4 (10:30→21:00)
[2018-07-22] MEDS: DAKINS HALF STRENGTH (0.25%) 480 ML BOTTLE TOP SCH ×2 (10:30→21:00)
[2018-07-22] MEDS: CADEXOMER IODINE 40 GM TUBE TP SCH (10:30)
[2018-07-22] MEDS: DAKINS QUARTER STRENGTH (0.125%) 480 ML BOTTLE TOP SCH ×2 (10:30→21:00)
[2018-07-22] MEDS ORDERED: NEUROTIN PO SCH (17:00)
[2018-07-22] MEDS: NEUROTIN GT SCH (17:32)
[2018-07-22 19:42] VITALS: BP 115/74
[2018-07-22] MEDS: ZINC SULFATE 220 MG CAPSULE GT SCH (21:00)
[2018-07-22] MEDS: ENOXAPARIN SODIUM 40 MG/0.4 ML DISP.SYRIN SQ SCH (21:00)
[2018-07-22] MEDS: POLYETHYLENE GLYCOL 3350 17 GM POWD.PACK GT SCH (22:07)
[2018-07-22] MEDS: ATORVASTATIN 10 MG TABLET GT SCH (22:07)
[2018-07-23] MEDS: IPRATROPIUM NEB FS 0.5 MG/2.5 ML AMPUL.NEB NEB SCH ×4 (02:05→19:18)
[2018-07-23] MEDS: SUCRALFATE 1 G/10 ML UDC GT SCH ×4 (06:31→21:11)
[2018-07-23 07:29] LABS: BASOPHILS # (AUTO) 0.1 /CMM (0.0-0.2); BASOPHILS % (AUTO) 0.9 % (0.0-2.0); EOSINOPHILS % (AUTO) 3.1 % (0.0-6.0); HEMATOCRIT 35 % (39-51); HEMOGLOBIN 10.8 g/dL (13.5-17.5); LYMPHOCYTES # (AUTO) 1.5 /CMM (0.8-4.8); LYMPHOCYTES % (AUTO) 14.9 % (20.0-44.0); MEAN CORPUSCULAR HGB CONC 31 g/dl (31.0-36.0); MEAN CORPUSCULAR VOLUME 77 fL (80-96); MONOCYTES # (AUTO) 1.2 /CMM (0.1-1.30); MONOCYTES % (AUTO) 12.4 % (2.0-12.0); NEUTROPHILS # (AUTO) 6.9 /CMM (1.8-8.9); NEUTROPHILS % (AUTO) 68.7 % (43.0-81.0); PLATELET COUNT (AUTO) 359 /CMM (150-450); RED BLOOD CELL COUNT(AUTO) 4.58 MIL/uL (4.5-6.0)
[2018-07-23 07:43] LABS: ALBUMIN 2.8 g/dL (3.4-5.0); BILIRUBIN,TOTAL 0.4 mg/dL (0.2-1.0); CALCIUM, SERUM 9.1 mg/dL (8.5-10.1); CREATININE 0.9 mg/dL (0.6-1.3); POTASSIUM 4.2 mmol/L (3.5-5.1); TOTAL PROTEIN, SERUM 8.3 g/dL (6.4-8.2)
[2018-07-23] MEDS: ACIDOPHILUS/BULGARICUS 1 EACH TAB.CHEW GT SCH ×3 (08:11→16:35)
[2018-07-23] MEDS: BACLOFEN (10 MG) 10 MG TABLET GT SCH ×4 (08:11→21:11)
[2018-07-23] MEDS: ESCITALOPRAM OXALATE (10 MG) 10 MG TABLET GT SCH (08:11)
[2018-07-23] MEDS: MULTIVIT W/MINERALS 1 TAB TABLET GT SCH (08:12)
[2018-07-23] MEDS: FAMOTIDINE (20 MG) 20 MG TABLET GT SCH ×2 (08:12→21:12)
[2018-07-23] MEDS: METHADONE HCL 10 MG TABLET GT SCH (08:12)
[2018-07-23] MEDS: PROSTAT (PYXIS) 30 ML UDC GT SCH ×3 (08:12→16:35)
[2018-07-23] MEDS: CALCIUM CARBONATE 500 MG TAB.CHEW GT SCH ×3 (08:13→16:35)
[2018-07-23] MEDS: CALCITRIOL 0.25 MCG CAPSULE PO SCH (08:13)
[2018-07-23] MEDS: ASCORBIC ACID 500 MG TABLET GT SCH ×2 (08:13→16:35)
[2018-07-23] MEDS: NEUROTIN GT SCH ×3 (08:19→16:35)
[2018-07-23 08:39] VITALS: BP 162/88
[2018-07-23 09:30] VITALS: BP 141/85
[2018-07-23] MEDS: HYDROCODONE/APAP 5/325MG 1 EACH TABLET GT SCH ×2 (12:00→21:12)
[2018-07-23] MEDS: CADEXOMER IODINE 40 GM TUBE TP SCH (13:00)
[2018-07-23] MEDS: DAKINS HALF STRENGTH (0.25%) 480 ML BOTTLE TOP SCH ×2 (13:00→21:49)
[2018-07-23] MEDS: DAKINS QUARTER STRENGTH (0.125%) 480 ML BOTTLE TOP SCH ×2 (13:00→21:49)
[2018-07-23] MEDS: HYDROGEL DRESSING 90 GM TUBE TP SCH ×4 (13:00→21:49)
[2018-07-23] MEDS: HYDROGEN PEROXIDE 480 ML BOTTLE TP SCH ×2 (13:00→21:50)
[2018-07-23 20:00] VITALS: BP 102/61
[2018-07-23] MEDS: ZINC SULFATE 220 MG CAPSULE GT SCH (21:12)
[2018-07-23] MEDS: ENOXAPARIN SODIUM 40 MG/0.4 ML DISP.SYRIN SQ SCH (21:12)
[2018-07-23] MEDS: POLYETHYLENE GLYCOL 3350 17 GM POWD.PACK GT SCH (21:13)
[2018-07-23] MEDS: ATORVASTATIN 10 MG TABLET GT SCH (21:13)
[2018-07-24] MEDS: IPRATROPIUM NEB FS 0.5 MG/2.5 ML AMPUL.NEB NEB SCH ×4 (00:59→19:53)
--- NOTE | 2018-07-24 02:21 | NUR ---
RT NOTE: RECEIVED PT ON 28% C/A. PLACED PT BACK ON ORDERED NOC NOTED VENT SETTINGS. NO RESPIRATORY DISTRESS NOTED. TRACH CHECKED SECURE AND PATENT. SXD AND LAVAGED PT Q ROUND AND NEEDED. TXS GIVEN ORDERED WITH NO ADVERSE REACTIONS NOTED. SPARE TRACH AND AMBU BAG @ BEDSIDE. ALARMS ON CHECKED AND AUDIBLE. WILL CONTINUE TO MONITOR. Addendum: 07/24/18 at 0223 by LAILA JON RT Amended: Links added.
[2018-07-24] MEDS: SUCRALFATE 1 G/10 ML UDC GT SCH ×4 (05:48→21:08)
[2018-07-24 07:53] VITALS: BP 95/59
[2018-07-24] MEDS: DAKINS HALF STRENGTH (0.25%) 480 ML BOTTLE TOP SCH ×2 (09:00→21:48)
[2018-07-24] MEDS: HYDROGEL DRESSING 90 GM TUBE TP SCH ×4 (09:00→21:49)
[2018-07-24] MEDS: HYDROGEN PEROXIDE 480 ML BOTTLE TP SCH ×2 (09:00→21:49)
[2018-07-24] MEDS: DAKINS QUARTER STRENGTH (0.125%) 480 ML BOTTLE TOP SCH ×2 (09:00→21:48)
[2018-07-24] MEDS: CADEXOMER IODINE 40 GM TUBE TP SCH (09:00)
[2018-07-24] MEDS: ESCITALOPRAM OXALATE (10 MG) 10 MG TABLET GT SCH (09:30)
[2018-07-24] MEDS: BACLOFEN (10 MG) 10 MG TABLET GT SCH ×4 (09:30→21:08)
[2018-07-24] MEDS: FAMOTIDINE (20 MG) 20 MG TABLET GT SCH ×2 (09:30→21:09)
[2018-07-24] MEDS: ACIDOPHILUS/BULGARICUS 1 EACH TAB.CHEW GT SCH ×3 (09:30→16:33)
[2018-07-24] MEDS: HYDROCODONE/APAP 5/325MG 1 EACH TABLET GT SCH ×2 (09:30→21:09)
[2018-07-24] MEDS: METHADONE HCL 10 MG TABLET GT SCH (09:30)
[2018-07-24] MEDS: PROSTAT (PYXIS) 30 ML UDC GT SCH ×3 (09:31→16:34)
[2018-07-24] MEDS: CALCIUM CARBONATE 500 MG TAB.CHEW GT SCH ×3 (09:31→16:34)
[2018-07-24] MEDS: CALCITRIOL 0.25 MCG CAPSULE PO SCH (09:31)
[2018-07-24] MEDS: MULTIVIT W/MINERALS 1 TAB TABLET GT SCH (09:31)
[2018-07-24] MEDS: ASCORBIC ACID 500 MG TABLET GT SCH ×2 (09:31→16:34)
[2018-07-24] MEDS: GABAPENTIN 250 MG/5 ML GT SCH ×2 (12:39→16:33)
[2018-07-24 20:14] VITALS: BP 101/59
[2018-07-24] MEDS: ZINC SULFATE 220 MG CAPSULE GT SCH (21:09)
[2018-07-24] MEDS: ATORVASTATIN 10 MG TABLET GT SCH (21:10)
[2018-07-24] MEDS: POLYETHYLENE GLYCOL 3350 17 GM POWD.PACK GT SCH (21:10)
[2018-07-24] MEDS: ENOXAPARIN SODIUM 40 MG/0.4 ML DISP.SYRIN SQ SCH (21:10)
[2018-07-25] MEDS: IPRATROPIUM NEB FS 0.5 MG/2.5 ML AMPUL.NEB NEB SCH ×4 (01:40→19:42)
[2018-07-25] MEDS: SUCRALFATE 1 G/10 ML UDC GT SCH ×4 (06:05→20:59)
[2018-07-25 07:44] VITALS: BP 127/67
[2018-07-25] MEDS: HYDROGEL DRESSING 90 GM TUBE TP SCH ×4 (09:00→21:46)
[2018-07-25] MEDS: DAKINS HALF STRENGTH (0.25%) 480 ML BOTTLE TOP SCH ×2 (09:00→21:46)
[2018-07-25] MEDS: HYDROGEN PEROXIDE 480 ML BOTTLE TP SCH ×2 (09:00→21:46)
[2018-07-25] MEDS: CADEXOMER IODINE 40 GM TUBE TP SCH (09:00)
[2018-07-25] MEDS: DAKINS QUARTER STRENGTH (0.125%) 480 ML BOTTLE TOP SCH ×2 (09:00→21:46)
[2018-07-25] MEDS: GABAPENTIN 250 MG/5 ML GT SCH ×3 (09:11→17:00)
[2018-07-25] MEDS: ACIDOPHILUS/BULGARICUS 1 EACH TAB.CHEW GT SCH ×3 (09:12→17:00)
[2018-07-25] MEDS: CALCIUM CARBONATE 500 MG TAB.CHEW GT SCH ×3 (09:12→17:00)
[2018-07-25] MEDS: ASCORBIC ACID 500 MG TABLET GT SCH ×2 (09:12→17:00)
[2018-07-25] MEDS: PROSTAT (PYXIS) 30 ML UDC GT SCH ×3 (09:12→17:00)
[2018-07-25] MEDS: CALCITRIOL 0.25 MCG CAPSULE PO SCH (09:12)
[2018-07-25] MEDS: HYDROCODONE/APAP 5/325MG 1 EACH TABLET GT SCH ×2 (09:12→21:00)
[2018-07-25] MEDS: METHADONE HCL 10 MG TABLET GT SCH (09:12)
[2018-07-25] MEDS: MULTIVIT W/MINERALS 1 TAB TABLET GT SCH (09:12)
[2018-07-25] MEDS: BACLOFEN (10 MG) 10 MG TABLET GT SCH ×4 (09:12→20:59)
[2018-07-25] MEDS: ESCITALOPRAM OXALATE (10 MG) 10 MG TABLET GT SCH (09:12)
[2018-07-25] MEDS: FAMOTIDINE (20 MG) 20 MG TABLET GT SCH ×2 (09:12→21:00)
[2018-07-25] MEDS: ZINC SULFATE 220 MG CAPSULE GT SCH (21:00)
[2018-07-25] MEDS: ATORVASTATIN 10 MG TABLET GT SCH (21:01)
[2018-07-25] MEDS: POLYETHYLENE GLYCOL 3350 17 GM POWD.PACK GT SCH (21:01)
[2018-07-25] MEDS: ENOXAPARIN SODIUM 40 MG/0.4 ML DISP.SYRIN SQ SCH (21:01)
[2018-07-25 21:19] VITALS: BP 107/66
[2018-07-26] MEDS: METHOCARBAMOL (750MG) 750 MG TABLET GT PRN (00:54)
[2018-07-26] MEDS: IPRATROPIUM NEB FS 0.5 MG/2.5 ML AMPUL.NEB NEB SCH ×4 (01:12→19:35)
[2018-07-26] MEDS: SUCRALFATE 1 G/10 ML UDC GT SCH ×4 (06:03→20:30)
[2018-07-26 07:54] VITALS: BP 137/77
[2018-07-26] MEDS: CADEXOMER IODINE 40 GM TUBE TP SCH (09:00)
[2018-07-26] MEDS: HYDROGEL DRESSING 90 GM TUBE TP SCH ×3 (09:00→21:44)
[2018-07-26] MEDS: HYDROGEN PEROXIDE 480 ML BOTTLE TP SCH ×2 (09:00→21:44)
[2018-07-26] MEDS: DAKINS HALF STRENGTH (0.25%) 480 ML BOTTLE TOP SCH ×2 (09:00→21:44)
[2018-07-26] MEDS: DAKINS QUARTER STRENGTH (0.125%) 480 ML BOTTLE TOP SCH ×2 (09:00→21:44)
[2018-07-26] MEDS: GABAPENTIN 250 MG/5 ML GT SCH ×3 (09:31→16:53)
[2018-07-26] MEDS: ESCITALOPRAM OXALATE (10 MG) 10 MG TABLET GT SCH (09:31)
[2018-07-26] MEDS: BACLOFEN (10 MG) 10 MG TABLET GT SCH ×4 (09:31→21:43)
[2018-07-26] MEDS: ACIDOPHILUS/BULGARICUS 1 EACH TAB.CHEW GT SCH ×3 (09:31→16:53)
[2018-07-26] MEDS: METHADONE HCL 10 MG TABLET GT SCH (09:31)
[2018-07-26] MEDS: MULTIVIT W/MINERALS 1 TAB TABLET GT SCH (09:32)
[2018-07-26] MEDS: CALCIUM CARBONATE 500 MG TAB.CHEW GT SCH ×3 (09:32→16:53)
[2018-07-26] MEDS: PROSTAT (PYXIS) 30 ML UDC GT SCH ×3 (09:32→16:53)
[2018-07-26] MEDS: CALCITRIOL 0.25 MCG CAPSULE PO SCH (09:32)
[2018-07-26] MEDS: ASCORBIC ACID 500 MG TABLET GT SCH ×2 (09:32→16:53)
[2018-07-26] MEDS: HYDROCODONE/APAP 5/325MG 1 EACH TABLET GT SCH ×2 (09:32→21:43)
[2018-07-26] MEDS: FAMOTIDINE (20 MG) 20 MG TABLET GT SCH ×2 (09:32→21:43)
[2018-07-26] MEDS: MAGNESIUM HYDROXIDE 30 ML UDC GT PRN (16:54)
[2018-07-26] MEDS: ZINC SULFATE 220 MG CAPSULE GT SCH (21:43)
[2018-07-26] MEDS: ENOXAPARIN SODIUM 40 MG/0.4 ML DISP.SYRIN SQ SCH (21:44)
[2018-07-26] MEDS: POLYETHYLENE GLYCOL 3350 17 GM POWD.PACK GT SCH (21:44)
[2018-07-26] MEDS: ATORVASTATIN 10 MG TABLET GT SCH (21:44)
[2018-07-26 22:57] VITALS: BP 128/67
[2018-07-27] MEDS: IPRATROPIUM NEB FS 0.5 MG/2.5 ML AMPUL.NEB NEB SCH ×4 (00:42→19:37)
[2018-07-27] MEDS: HYDROCODONE/APAP 5/325MG 1 EACH TABLET GT PRN (04:00)
[2018-07-27] MEDS: SUCRALFATE 1 G/10 ML UDC GT SCH ×4 (05:42→20:53)
[2018-07-27 07:40] VITALS: BP 118/68
--- NOTE | 2018-07-27 08:52 | NUR ---
RT PT REC'D TRACH ON MECH VENT THEN PLACED ON COOL AEROSOL ON NOTED SETTINGS PER MD ORDERS. TRACH IS PATENT AND SECURED. TX GIVEN WITH NO ADVERSE REACTION NOTED. SX DONE PRN. FANNYU BAG @ BEDSIDE. NO RESP DISTRESS AT THIS TIME. WILL CONTINUE TO MONITOR. Addendum: 07/27/18 at 0852 by BUFFY SHERWOOD RT Amended: Links added.
[2018-07-27] MEDS: DAKINS HALF STRENGTH (0.25%) 480 ML BOTTLE TOP SCH ×2 (09:00→21:34)
[2018-07-27] MEDS: CADEXOMER IODINE 40 GM TUBE TP SCH (09:00)
[2018-07-27] MEDS: DAKINS QUARTER STRENGTH (0.125%) 480 ML BOTTLE TOP SCH ×2 (09:00→21:34)
[2018-07-27] MEDS: HYDROGEL DRESSING 90 GM TUBE TP SCH ×2 (09:00→21:34)
[2018-07-27] MEDS: HYDROGEN PEROXIDE 480 ML BOTTLE TP SCH ×2 (09:00→21:35)
[2018-07-27] MEDS: BACLOFEN (10 MG) 10 MG TABLET GT SCH ×4 (09:38→21:32)
[2018-07-27] MEDS: METHADONE HCL 10 MG TABLET GT SCH (09:38)
[2018-07-27] MEDS: ACIDOPHILUS/BULGARICUS 1 EACH TAB.CHEW GT SCH ×3 (09:38→17:49)
[2018-07-27] MEDS: GABAPENTIN 250 MG/5 ML GT SCH ×3 (09:38→17:49)
[2018-07-27] MEDS: ESCITALOPRAM OXALATE (10 MG) 10 MG TABLET GT SCH (09:38)
[2018-07-27] MEDS: PROSTAT (PYXIS) 30 ML UDC GT SCH ×3 (09:39→17:49)
[2018-07-27] MEDS: MULTIVIT W/MINERALS 1 TAB TABLET GT SCH (09:39)
[2018-07-27] MEDS: FAMOTIDINE (20 MG) 20 MG TABLET GT SCH ×2 (09:39→21:33)
[2018-07-27] MEDS: ASCORBIC ACID 500 MG TABLET GT SCH ×2 (09:39→17:50)
[2018-07-27] MEDS: CALCITRIOL 0.25 MCG CAPSULE PO SCH (09:39)
[2018-07-27] MEDS: HYDROCODONE/APAP 5/325MG 1 EACH TABLET GT SCH ×2 (09:39→21:38)
[2018-07-27] MEDS: CALCIUM CARBONATE 500 MG TAB.CHEW GT SCH ×3 (09:39→17:49)
[2018-07-27] MEDS ORDERED: DAKINS QUARTER STRENGTH (0.125%) 480 ML BOTTLE TOP SCH (21:00)
[2018-07-27] MEDS: ZINC SULFATE 220 MG CAPSULE GT SCH (21:33)
[2018-07-27] MEDS: ENOXAPARIN SODIUM 40 MG/0.4 ML DISP.SYRIN SQ SCH (21:34)
[2018-07-27] MEDS: ATORVASTATIN 10 MG TABLET GT SCH (21:35)
[2018-07-27] MEDS: POLYETHYLENE GLYCOL 3350 17 GM POWD.PACK GT SCH (21:35)
[2018-07-28] MEDS: IPRATROPIUM NEB FS 0.5 MG/2.5 ML AMPUL.NEB NEB SCH ×4 (00:42→19:09)
[2018-07-28] MEDS: HYDROCODONE/APAP 5/325MG 1 EACH TABLET GT PRN (04:33)
[2018-07-28 04:39] VITALS: BP 135/86
--- NOTE | 2018-07-28 04:45 | NUR ---
SUBACUTE RN NOTE: PATIENT COMPLAINS OF BACK/SACRAL PAIN 10/30, NORCO 5/325MG 1 TAB VIA G-TUBE GIVEN PER MD ORDER. WILL CONTINUE TO MONITOR.
[2018-07-28] MEDS: SUCRALFATE 1 G/10 ML UDC GT SCH ×4 (05:49→20:30)
[2018-07-28 07:33] VITALS: BP 133/79
[2018-07-28] MEDS: GABAPENTIN 250 MG/5 ML GT SCH ×3 (08:14→17:56)
[2018-07-28] MEDS: ACIDOPHILUS/BULGARICUS 1 EACH TAB.CHEW GT SCH ×3 (08:14→17:56)
[2018-07-28] MEDS: BACLOFEN (10 MG) 10 MG TABLET GT SCH ×4 (08:14→21:42)
[2018-07-28] MEDS: ESCITALOPRAM OXALATE (10 MG) 10 MG TABLET GT SCH (08:14)
[2018-07-28] MEDS: PROSTAT (PYXIS) 30 ML UDC GT SCH ×3 (08:15→17:56)
[2018-07-28] MEDS: MULTIVIT W/MINERALS 1 TAB TABLET GT SCH (08:15)
[2018-07-28] MEDS: FAMOTIDINE (20 MG) 20 MG TABLET GT SCH ×2 (08:15→21:43)
[2018-07-28] MEDS: METHADONE HCL 10 MG TABLET GT SCH (08:15)
[2018-07-28] MEDS: CALCIUM CARBONATE 500 MG TAB.CHEW GT SCH ×3 (08:15→17:56)
[2018-07-28] MEDS: ASCORBIC ACID 500 MG TABLET GT SCH ×2 (08:16→17:56)
[2018-07-28] MEDS: CALCITRIOL 0.25 MCG CAPSULE PO SCH (08:16)
--- NOTE | 2018-07-28 10:35 | NUR ---
Seen and examined by Dr. Seaman, no new order given.
[2018-07-28] MEDS: HYDROCODONE/APAP 5/325MG 1 EACH TABLET GT SCH ×2 (11:00→21:43)
[2018-07-28] MEDS: HYDROGEN PEROXIDE 480 ML BOTTLE TP SCH ×2 (12:00→21:44)
[2018-07-28] MEDS: DAKINS QUARTER STRENGTH (0.125%) 480 ML BOTTLE TOP SCH ×2 (12:00→21:44)
[2018-07-28] MEDS: HYDROGEL DRESSING 90 GM TUBE TP SCH ×4 (12:00→21:44)
[2018-07-28] MEDS: DAKINS HALF STRENGTH (0.25%) 480 ML BOTTLE TOP SCH ×2 (12:00→21:44)
[2018-07-28] MEDS: CADEXOMER IODINE 40 GM TUBE TP SCH (12:00)
[2018-07-28 20:32] VITALS: BP 111/72
[2018-07-28] MEDS: ZINC SULFATE 220 MG CAPSULE GT SCH (21:43)
[2018-07-28] MEDS: ATORVASTATIN 10 MG TABLET GT SCH (21:44)
[2018-07-28] MEDS: POLYETHYLENE GLYCOL 3350 17 GM POWD.PACK GT SCH (21:44)
[2018-07-28] MEDS: ENOXAPARIN SODIUM 40 MG/0.4 ML DISP.SYRIN SQ SCH (21:44)
[2018-07-29] MEDS: IPRATROPIUM NEB FS 0.5 MG/2.5 ML AMPUL.NEB NEB SCH ×4 (01:03→19:50)
--- NOTE | 2018-07-29 03:56 | NUR ---
RT NOTE: RECEIVED PT ON 28% C/A. PLACED PT BACK ON ORDERED NOC NOTED VENT SETTINGS. NO RESPIRATORY DISTRESS NOTED. TRACH CHECKED SECURE AND PATENT. SXD AND LAVAGED PT Q ROUND AND NEEDED. TXS GIVEN ORDERED WITH NO ADVERSE REACTIONS NOTED. SPARE TRACH AND AMBU BAG @ BEDSIDE. ALARMS ON CHECKED AND AUDIBLE. WILL CONTINUE TO MONITOR. Addendum: 07/29/18 at 0357 by LAILA JON RT Amended: Links added.
[2018-07-29] MEDS: SUCRALFATE 1 G/10 ML UDC GT SCH ×4 (06:14→21:27)
--- NOTE | 2018-07-29 08:06 | NUR ---
RT PT REC'D TRACH ON MECH VENT THEN PLACED ON COOL AEROSOL ON NOTED SETTINGS PER MD ORDERS. TRACH IS PATENT AND SECURED. TX GIVEN WITH NO ADVERSE REACTION NOTED. SX DONE PRN. FANNYU BAG @ BEDSIDE. NO RESP DISTRESS AT THIS TIME. WILL CONTINUE TO MONITOR. Addendum: 07/29/18 at 0807 by BUFFY SHERWOOD RT Amended: Links added.
[2018-07-29 08:17] VITALS: BP 128/69
[2018-07-29] MEDS: FAMOTIDINE (20 MG) 20 MG TABLET GT SCH ×2 (08:55→21:28)
[2018-07-29] MEDS: ACIDOPHILUS/BULGARICUS 1 EACH TAB.CHEW GT SCH ×3 (08:55→16:39)
[2018-07-29] MEDS: ASCORBIC ACID 500 MG TABLET GT SCH ×2 (08:55→16:39)
[2018-07-29] MEDS: BACLOFEN (10 MG) 10 MG TABLET GT SCH ×4 (08:55→21:27)
[2018-07-29] MEDS: PROSTAT (PYXIS) 30 ML UDC GT SCH ×3 (08:55→16:39)
[2018-07-29] MEDS: CALCIUM CARBONATE 500 MG TAB.CHEW GT SCH ×3 (08:55→16:39)
[2018-07-29] MEDS: ESCITALOPRAM OXALATE (10 MG) 10 MG TABLET GT SCH (08:55)
[2018-07-29] MEDS: CALCITRIOL 0.25 MCG CAPSULE PO SCH (08:55)
[2018-07-29] MEDS: MULTIVIT W/MINERALS 1 TAB TABLET GT SCH (08:55)
[2018-07-29] MEDS: METHADONE HCL 10 MG TABLET GT SCH (08:55)
[2018-07-29] MEDS: GABAPENTIN 250 MG/5 ML GT SCH ×3 (08:55→16:39)
[2018-07-29] MEDS: DAKINS HALF STRENGTH (0.25%) 480 ML BOTTLE TOP SCH ×2 (09:00→21:30)
[2018-07-29] MEDS: DAKINS QUARTER STRENGTH (0.125%) 480 ML BOTTLE TOP SCH ×2 (09:00→21:30)
[2018-07-29] MEDS: CADEXOMER IODINE 40 GM TUBE TP SCH (09:00)
[2018-07-29] MEDS: HYDROCODONE/APAP 5/325MG 1 EACH TABLET GT SCH ×2 (09:00→21:28)
[2018-07-29] MEDS: HYDROGEL DRESSING 90 GM TUBE TP SCH ×4 (09:00→21:30)
[2018-07-29] MEDS: HYDROGEN PEROXIDE 480 ML BOTTLE TP SCH ×2 (09:00→21:30)
[2018-07-29 20:32] VITALS: BP 97/63
[2018-07-29] MEDS: ZINC SULFATE 220 MG CAPSULE GT SCH (21:29)
[2018-07-29] MEDS: ENOXAPARIN SODIUM 40 MG/0.4 ML DISP.SYRIN SQ SCH (21:29)
[2018-07-29] MEDS: POLYETHYLENE GLYCOL 3350 17 GM POWD.PACK GT SCH (21:30)
[2018-07-29] MEDS: ATORVASTATIN 10 MG TABLET GT SCH (21:30)
[2018-07-30] MEDS: IPRATROPIUM NEB FS 0.5 MG/2.5 ML AMPUL.NEB NEB SCH ×4 (01:26→19:21)
[2018-07-30] MEDS: SUCRALFATE 1 G/10 ML UDC GT SCH ×4 (05:36→21:25)
[2018-07-30 07:39] VITALS: BP 136/72
[2018-07-30] MEDS: ASCORBIC ACID 500 MG TABLET GT SCH ×2 (09:00→16:40)
[2018-07-30] MEDS: DAKINS QUARTER STRENGTH (0.125%) 480 ML BOTTLE TOP SCH ×2 (09:00→21:27)
[2018-07-30] MEDS: CALCIUM CARBONATE 500 MG TAB.CHEW GT SCH ×3 (09:00→16:40)
[2018-07-30] MEDS: MULTIVIT W/MINERALS 1 TAB TABLET GT SCH (09:00)
[2018-07-30] MEDS: ESCITALOPRAM OXALATE (10 MG) 10 MG TABLET GT SCH (09:00)
[2018-07-30] MEDS: CALCITRIOL 0.25 MCG CAPSULE PO SCH (09:00)
[2018-07-30] MEDS: GABAPENTIN 250 MG/5 ML GT SCH ×3 (09:00→16:40)
[2018-07-30] MEDS: METHADONE HCL 10 MG TABLET GT SCH (09:00)
[2018-07-30] MEDS: HYDROGEN PEROXIDE 480 ML BOTTLE TP SCH ×2 (09:00→21:28)
[2018-07-30] MEDS: DAKINS HALF STRENGTH (0.25%) 480 ML BOTTLE TOP SCH ×2 (09:00→21:27)
[2018-07-30] MEDS: PROSTAT (PYXIS) 30 ML UDC GT SCH ×3 (09:00→16:40)
[2018-07-30] MEDS: ACIDOPHILUS/BULGARICUS 1 EACH TAB.CHEW GT SCH ×3 (09:00→16:40)
[2018-07-30] MEDS: HYDROGEL DRESSING 90 GM TUBE TP SCH ×4 (09:00→21:28)
[2018-07-30] MEDS: BACLOFEN (10 MG) 10 MG TABLET GT SCH ×4 (09:00→21:26)
[2018-07-30] MEDS: HYDROCODONE/APAP 5/325MG 1 EACH TABLET GT SCH ×2 (09:00→21:27)
[2018-07-30] MEDS: CADEXOMER IODINE 40 GM TUBE TP SCH (09:00)
[2018-07-30] MEDS: FAMOTIDINE (20 MG) 20 MG TABLET GT SCH ×2 (09:00→21:27)
[2018-07-30 20:07] VITALS: BP 132/73
[2018-07-30] MEDS: ENOXAPARIN SODIUM 40 MG/0.4 ML DISP.SYRIN SQ SCH (21:25)
[2018-07-30] MEDS: ZINC SULFATE 220 MG CAPSULE GT SCH (21:27)
[2018-07-30] MEDS: ATORVASTATIN 10 MG TABLET GT SCH (21:28)
[2018-07-30] MEDS: POLYETHYLENE GLYCOL 3350 17 GM POWD.PACK GT SCH (21:28)
[2018-07-31] MEDS: IPRATROPIUM NEB FS 0.5 MG/2.5 ML AMPUL.NEB NEB SCH ×4 (00:47→19:35)
[2018-07-31] MEDS: SUCRALFATE 1 G/10 ML UDC GT SCH ×4 (05:15→21:23)
[2018-07-31 07:45] VITALS: BP 107/55
[2018-07-31] MEDS: FAMOTIDINE (20 MG) 20 MG TABLET GT SCH ×2 (09:00→21:25)
[2018-07-31] MEDS: DAKINS HALF STRENGTH (0.25%) 480 ML BOTTLE TOP SCH ×2 (09:00→21:26)
[2018-07-31] MEDS: DAKINS QUARTER STRENGTH (0.125%) 480 ML BOTTLE TOP SCH ×2 (09:00→21:26)
[2018-07-31] MEDS: METHADONE HCL 10 MG TABLET GT SCH (09:00)
[2018-07-31] MEDS: GABAPENTIN 250 MG/5 ML GT SCH ×3 (09:00→17:06)
[2018-07-31] MEDS: BACLOFEN (10 MG) 10 MG TABLET GT SCH ×4 (09:00→21:24)
[2018-07-31] MEDS: ACIDOPHILUS/BULGARICUS 1 EACH TAB.CHEW GT SCH ×3 (09:00→17:06)
[2018-07-31] MEDS: PROSTAT (PYXIS) 30 ML UDC GT SCH ×3 (09:00→17:06)
[2018-07-31] MEDS: ESCITALOPRAM OXALATE (10 MG) 10 MG TABLET GT SCH (09:00)
[2018-07-31] MEDS: CADEXOMER IODINE 40 GM TUBE TP SCH (09:00)
[2018-07-31] MEDS: CALCIUM CARBONATE 500 MG TAB.CHEW GT SCH ×3 (09:00→17:06)
[2018-07-31] MEDS: HYDROGEL DRESSING 90 GM TUBE TP SCH ×4 (09:00→21:27)
[2018-07-31] MEDS: HYDROGEN PEROXIDE 480 ML BOTTLE TP SCH ×2 (09:00→21:27)
[2018-07-31] MEDS: CALCITRIOL 0.25 MCG CAPSULE PO SCH (09:00)
[2018-07-31] MEDS: ASCORBIC ACID 500 MG TABLET GT SCH ×2 (09:00→17:06)
[2018-07-31] MEDS: MULTIVIT W/MINERALS 1 TAB TABLET GT SCH (09:00)
[2018-07-31] MEDS: HYDROCODONE/APAP 5/325MG 1 EACH TABLET GT SCH ×2 (09:30→21:24)
[2018-07-31 20:51] VITALS: BP 109/51
[2018-07-31] MEDS: ZINC SULFATE 220 MG CAPSULE GT SCH (21:25)
[2018-07-31] MEDS: ENOXAPARIN SODIUM 40 MG/0.4 ML DISP.SYRIN SQ SCH (21:26)
[2018-07-31] MEDS: ATORVASTATIN 10 MG TABLET GT SCH (21:27)
[2018-07-31] MEDS: POLYETHYLENE GLYCOL 3350 17 GM POWD.PACK GT SCH (21:28)
[2018-08-01] MEDS: IPRATROPIUM NEB FS 0.5 MG/2.5 ML AMPUL.NEB NEB SCH ×4 (01:07→19:49)
[2018-08-01] MEDS: SUCRALFATE 1 G/10 ML UDC GT SCH ×4 (05:29→21:00)
--- NOTE | 2018-08-01 07:28 | NUR ---
pt. received on vent support via trach and placed into cool mist as order for daily weaning. Addendum: 08/01/18 at 0729 by JAYLENE STORY RT Amended: Links added.
[2018-08-01 08:04] VITALS: BP 145/76
[2018-08-01] MEDS: GABAPENTIN 250 MG/5 ML GT SCH ×3 (08:05→17:10)
[2018-08-01] MEDS: BACLOFEN (10 MG) 10 MG TABLET GT SCH ×4 (08:05→20:57)
[2018-08-01] MEDS: ESCITALOPRAM OXALATE (10 MG) 10 MG TABLET GT SCH (08:05)
[2018-08-01] MEDS: ACIDOPHILUS/BULGARICUS 1 EACH TAB.CHEW GT SCH ×3 (08:05→17:10)
[2018-08-01] MEDS: METHADONE HCL 10 MG TABLET GT SCH (08:06)
[2018-08-01] MEDS: CALCIUM CARBONATE 500 MG TAB.CHEW GT SCH ×3 (08:07→17:10)
[2018-08-01] MEDS: MULTIVIT W/MINERALS 1 TAB TABLET GT SCH (08:07)
[2018-08-01] MEDS: CALCITRIOL 0.25 MCG CAPSULE PO SCH (08:07)
[2018-08-01] MEDS: FAMOTIDINE (20 MG) 20 MG TABLET GT SCH ×2 (08:07→20:58)
[2018-08-01] MEDS: ASCORBIC ACID 500 MG TABLET GT SCH ×2 (08:07→17:10)
[2018-08-01] MEDS: PROSTAT (PYXIS) 30 ML UDC GT SCH ×3 (08:07→17:10)
[2018-08-01] MEDS: HYDROCODONE/APAP 5/325MG 1 EACH TABLET GT SCH ×2 (12:54→20:57)
[2018-08-01] MEDS: DAKINS QUARTER STRENGTH (0.125%) 480 ML BOTTLE TOP SCH ×2 (13:54→21:00)
[2018-08-01] MEDS: CADEXOMER IODINE 40 GM TUBE TP SCH (13:54)
[2018-08-01] MEDS: HYDROGEL DRESSING 90 GM TUBE TP SCH ×4 (13:54→21:00)
[2018-08-01] MEDS: HYDROGEN PEROXIDE 480 ML BOTTLE TP SCH ×2 (13:54→21:00)
[2018-08-01] MEDS: DAKINS HALF STRENGTH (0.25%) 480 ML BOTTLE TOP SCH ×2 (13:54→21:00)
--- NOTE | 2018-08-01 19:49 | NUR ---
PATIENT RECEIVED ON COOL AEROSOL. PLACED PATIENT ON MECHANICAL VENTILATION PER NOC ORDER. PT IS AWAKE AND ALERT. CUFF CHECKED VIA COLLET MAKING MACHINE OPERATOR. AMBU BAG/BACK UP TRACH @ BEDSIDE. VENT PLUGGED INTO RED OUTLET. ALARMS ON AND AUDIBLE. TX GIVEN, NO ADVERSE REACTIONS NOTED. SX DONE, MODERATE THICK YELLOW SECRETIONS NOTED. PATIENT STABLE. WILL MONITOR.
[2018-08-01 20:06] VITALS: BP 108/75
[2018-08-01] MEDS: ZINC SULFATE 220 MG CAPSULE GT SCH (20:58)
[2018-08-01] MEDS: ENOXAPARIN SODIUM 40 MG/0.4 ML DISP.SYRIN SQ SCH (20:59)
[2018-08-01] MEDS: ATORVASTATIN 10 MG TABLET GT SCH (21:18)
[2018-08-01] MEDS: POLYETHYLENE GLYCOL 3350 17 GM POWD.PACK GT SCH (21:18)
[2018-08-02] MEDS: IPRATROPIUM NEB FS 0.5 MG/2.5 ML AMPUL.NEB NEB SCH ×4 (00:59→20:23)
[2018-08-02] MEDS: SUCRALFATE 1 G/10 ML UDC GT SCH ×4 (06:31→20:30)
[2018-08-02 08:04] VITALS: BP 119/68
--- NOTE | 2018-08-02 08:07 | NUR ---
RT PT REC'D TRACH'D ON MECH VENT THEN PLACED ON COOL AEROSOL ON NOTED SETTINGS PER MD ORDERS. TRACH IS PATENT AND SECURE. HHN TX GIVEN WITH NO ADVERSE REACTION NOTED. SX DONE PRN. AMBU BAG @ BEDSIDE. NO RESP DISTRESS AT THIS TIME. WILL CONTINUE TO MONITOR.
[2018-08-02] MEDS: GABAPENTIN 250 MG/5 ML GT SCH ×3 (09:00→17:00)
[2018-08-02] MEDS: HYDROCODONE/APAP 5/325MG 1 EACH TABLET GT SCH ×2 (09:00→21:49)
[2018-08-02] MEDS: HYDROGEL DRESSING 90 GM TUBE TP SCH ×4 (09:30→21:49)
[2018-08-02] MEDS: DAKINS HALF STRENGTH (0.25%) 480 ML BOTTLE TOP SCH ×2 (09:30→21:49)
[2018-08-02] MEDS: CADEXOMER IODINE 40 GM TUBE TP SCH (09:30)
[2018-08-02] MEDS: HYDROGEN PEROXIDE 480 ML BOTTLE TP SCH ×2 (09:30→21:49)
[2018-08-02] MEDS: DAKINS QUARTER STRENGTH (0.125%) 480 ML BOTTLE TOP SCH ×2 (09:30→21:49)
[2018-08-02] MEDS: ESCITALOPRAM OXALATE (10 MG) 10 MG TABLET GT SCH (09:44)
[2018-08-02] MEDS: BACLOFEN (10 MG) 10 MG TABLET GT SCH ×4 (09:44→21:48)
[2018-08-02] MEDS: ACIDOPHILUS/BULGARICUS 1 EACH TAB.CHEW GT SCH ×3 (09:44→17:00)
[2018-08-02] MEDS: FAMOTIDINE (20 MG) 20 MG TABLET GT SCH ×2 (09:46→21:49)
[2018-08-02] MEDS: CALCIUM CARBONATE 500 MG TAB.CHEW GT SCH ×3 (09:46→17:00)
[2018-08-02] MEDS: MULTIVIT W/MINERALS 1 TAB TABLET GT SCH (09:46)
[2018-08-02] MEDS: ASCORBIC ACID 500 MG TABLET GT SCH ×2 (09:46→17:00)
[2018-08-02] MEDS: CALCITRIOL 0.25 MCG CAPSULE PO SCH (09:46)
[2018-08-02] MEDS: METHADONE HCL 10 MG TABLET GT SCH (09:46)
[2018-08-02] MEDS: PROSTAT (PYXIS) 30 ML UDC GT SCH ×3 (09:46→17:00)
[2018-08-02] MEDS: HYDROCODONE/APAP 5/325MG 1 EACH TABLET GT PRN (13:14)
[2018-08-02 19:58] VITALS: BP 116/69
[2018-08-02] MEDS: ATORVASTATIN 10 MG TABLET GT SCH (21:49)
[2018-08-02] MEDS: ZINC SULFATE 220 MG CAPSULE GT SCH (21:49)
[2018-08-02] MEDS: ENOXAPARIN SODIUM 40 MG/0.4 ML DISP.SYRIN SQ SCH (21:49)
[2018-08-02] MEDS: POLYETHYLENE GLYCOL 3350 17 GM POWD.PACK GT SCH (21:50)
[2018-08-03] MEDS: IPRATROPIUM NEB FS 0.5 MG/2.5 ML AMPUL.NEB NEB SCH ×4 (01:52→19:29)
[2018-08-03] MEDS: HYDROCODONE/APAP 5/325MG 1 EACH TABLET GT PRN ×2 (03:29→18:48)
[2018-08-03] MEDS: SUCRALFATE 1 G/10 ML UDC GT SCH ×4 (06:35→20:50)
--- NOTE | 2018-08-03 08:13 | NUR ---
pt placed on cool aerosol per md orders. no resp distress or sob noted. will continue to monitor closely. Addendum: 08/03/18 at 0814 by CAITLIN SOTO RT Amended: Links added.
[2018-08-03] MEDS: ACIDOPHILUS/BULGARICUS 1 EACH TAB.CHEW GT SCH ×3 (08:42→16:40)
[2018-08-03] MEDS: GABAPENTIN 250 MG/5 ML GT SCH ×3 (08:42→16:40)
[2018-08-03] MEDS: METHADONE HCL 10 MG TABLET GT SCH (08:42)
[2018-08-03] MEDS: ESCITALOPRAM OXALATE (10 MG) 10 MG TABLET GT SCH (08:42)
[2018-08-03] MEDS: BACLOFEN (10 MG) 10 MG TABLET GT SCH ×4 (08:42→20:50)
[2018-08-03] MEDS: HYDROCODONE/APAP 5/325MG 1 EACH TABLET GT SCH ×2 (08:43→22:00)
[2018-08-03] MEDS: CALCITRIOL 0.25 MCG CAPSULE PO SCH (08:44)
[2018-08-03] MEDS: PROSTAT (PYXIS) 30 ML UDC GT SCH ×3 (08:44→16:41)
[2018-08-03] MEDS: CALCIUM CARBONATE 500 MG TAB.CHEW GT SCH ×3 (08:44→16:41)
[2018-08-03] MEDS: MULTIVIT W/MINERALS 1 TAB TABLET GT SCH (08:44)
[2018-08-03] MEDS: FAMOTIDINE (20 MG) 20 MG TABLET GT SCH ×2 (08:44→20:50)
[2018-08-03] MEDS: ASCORBIC ACID 500 MG TABLET GT SCH ×2 (08:44→16:41)
[2018-08-03] MEDS: CADEXOMER IODINE 40 GM TUBE TP SCH (09:00)
[2018-08-03] MEDS: HYDROGEL DRESSING 90 GM TUBE TP SCH ×4 (09:00→20:51)
[2018-08-03] MEDS: DAKINS HALF STRENGTH (0.25%) 480 ML BOTTLE TOP SCH ×2 (09:00→20:50)
[2018-08-03] MEDS: HYDROGEN PEROXIDE 480 ML BOTTLE TP SCH ×2 (09:00→20:51)
[2018-08-03] MEDS: DAKINS QUARTER STRENGTH (0.125%) 480 ML BOTTLE TOP SCH ×2 (09:00→20:51)
[2018-08-03] MEDS: BACI/NEOM/POLY B OINT PKT 1 UDPKT PACKET TP SCH ×2 (09:00→20:51)
--- NOTE | 2018-08-03 15:00 | NUR ---
Seen and examined by Dr. Seaman, no new order given.
[2018-08-03 20:29] VITALS: BP 122/72
[2018-08-03] MEDS: ENOXAPARIN SODIUM 40 MG/0.4 ML DISP.SYRIN SQ SCH (20:49)
[2018-08-03] MEDS: ZINC SULFATE 220 MG CAPSULE GT SCH (20:50)
[2018-08-03] MEDS: POLYETHYLENE GLYCOL 3350 17 GM POWD.PACK GT SCH (21:15)
[2018-08-03] MEDS: ATORVASTATIN 10 MG TABLET GT SCH (21:15)
[2018-08-04] MEDS: IPRATROPIUM NEB FS 0.5 MG/2.5 ML AMPUL.NEB NEB SCH ×4 (01:57→20:17)
[2018-08-04] MEDS: HYDROCODONE/APAP 5/325MG 1 EACH TABLET GT PRN (02:37)
[2018-08-04] MEDS: SUCRALFATE 1 G/10 ML UDC GT SCH ×4 (06:00→20:30)
[2018-08-04 08:00] VITALS: BP 108/67
[2018-08-04] MEDS: GABAPENTIN 250 MG/5 ML GT SCH ×3 (08:19→17:24)
[2018-08-04] MEDS: BACLOFEN (10 MG) 10 MG TABLET GT SCH ×4 (08:19→20:30)
[2018-08-04] MEDS: ESCITALOPRAM OXALATE (10 MG) 10 MG TABLET GT SCH (08:19)
[2018-08-04] MEDS: ACIDOPHILUS/BULGARICUS 1 EACH TAB.CHEW GT SCH ×3 (08:19→17:24)
[2018-08-04] MEDS: CALCITRIOL 0.25 MCG CAPSULE PO SCH (08:23)
[2018-08-04] MEDS: METHADONE HCL 10 MG TABLET GT SCH (08:23)
[2018-08-04] MEDS: CALCIUM CARBONATE 500 MG TAB.CHEW GT SCH ×3 (08:23→17:24)
[2018-08-04] MEDS: PROSTAT (PYXIS) 30 ML UDC GT SCH ×3 (08:23→17:24)
[2018-08-04] MEDS: FAMOTIDINE (20 MG) 20 MG TABLET GT SCH ×2 (08:23→20:32)
[2018-08-04] MEDS: MULTIVIT W/MINERALS 1 TAB TABLET GT SCH (08:23)
[2018-08-04] MEDS: ASCORBIC ACID 500 MG TABLET GT SCH ×2 (08:23→17:24)
[2018-08-04] MEDS: HYDROCODONE/APAP 5/325MG 1 EACH TABLET GT SCH ×2 (12:40→20:32)
[2018-08-04] MEDS: HYDROGEN PEROXIDE 480 ML BOTTLE TP SCH ×2 (13:40→20:33)
[2018-08-04] MEDS: CADEXOMER IODINE 40 GM TUBE TP SCH (13:40)
[2018-08-04] MEDS: DAKINS HALF STRENGTH (0.25%) 480 ML BOTTLE TOP SCH ×2 (13:40→20:32)
[2018-08-04] MEDS: BACI/NEOM/POLY B OINT PKT 1 UDPKT PACKET TP SCH ×2 (13:40→20:33)
[2018-08-04] MEDS: HYDROGEL DRESSING 90 GM TUBE TP SCH ×4 (13:40→20:33)
[2018-08-04] MEDS: DAKINS QUARTER STRENGTH (0.125%) 480 ML BOTTLE TOP SCH ×2 (13:40→20:32)
[2018-08-04] MEDS: ZINC SULFATE 220 MG CAPSULE GT SCH (20:32)
[2018-08-04 20:51] VITALS: BP 109/72
[2018-08-04] MEDS: ENOXAPARIN SODIUM 40 MG/0.4 ML DISP.SYRIN SQ SCH (20:58)
[2018-08-04] MEDS: POLYETHYLENE GLYCOL 3350 17 GM POWD.PACK GT SCH (21:20)
[2018-08-04] MEDS: ATORVASTATIN 10 MG TABLET GT SCH (21:20)
[2018-08-05] MEDS: HYDROCODONE/APAP 5/325MG 1 EACH TABLET GT PRN (01:28)
[2018-08-05] MEDS: IPRATROPIUM NEB FS 0.5 MG/2.5 ML AMPUL.NEB NEB SCH ×4 (01:36→19:21)
[2018-08-05] MEDS: SUCRALFATE 1 G/10 ML UDC GT SCH ×4 (05:40→20:30)
[2018-08-05 07:49] VITALS: BP 127/68
[2018-08-05] MEDS: HYDROGEN PEROXIDE 480 ML BOTTLE TP SCH ×2 (09:00→21:43)
[2018-08-05] MEDS: CADEXOMER IODINE 40 GM TUBE TP SCH (09:00)
[2018-08-05] MEDS: BACI/NEOM/POLY B OINT PKT 1 UDPKT PACKET TP SCH ×2 (09:00→21:44)
[2018-08-05] MEDS: DAKINS HALF STRENGTH (0.25%) 480 ML BOTTLE TOP SCH ×2 (09:00→21:43)
[2018-08-05] MEDS: HYDROGEL DRESSING 90 GM TUBE TP SCH ×4 (09:00→21:43)
[2018-08-05] MEDS: DAKINS QUARTER STRENGTH (0.125%) 480 ML BOTTLE TOP SCH ×2 (09:00→21:43)
[2018-08-05] MEDS: GABAPENTIN 250 MG/5 ML GT SCH ×3 (09:25→17:00)
[2018-08-05] MEDS: METHADONE HCL 10 MG TABLET GT SCH (09:25)
[2018-08-05] MEDS: ACIDOPHILUS/BULGARICUS 1 EACH TAB.CHEW GT SCH ×3 (09:25→17:00)
[2018-08-05] MEDS: ESCITALOPRAM OXALATE (10 MG) 10 MG TABLET GT SCH (09:25)
[2018-08-05] MEDS: BACLOFEN (10 MG) 10 MG TABLET GT SCH ×4 (09:25→21:41)
[2018-08-05] MEDS: CALCIUM CARBONATE 500 MG TAB.CHEW GT SCH ×3 (09:26→17:00)
[2018-08-05] MEDS: CALCITRIOL 0.25 MCG CAPSULE PO SCH (09:26)
[2018-08-05] MEDS: MULTIVIT W/MINERALS 1 TAB TABLET GT SCH (09:26)
[2018-08-05] MEDS: FAMOTIDINE (20 MG) 20 MG TABLET GT SCH ×2 (09:26→21:42)
[2018-08-05] MEDS: ASCORBIC ACID 500 MG TABLET GT SCH ×2 (09:26→17:00)
[2018-08-05] MEDS: PROSTAT (PYXIS) 30 ML UDC GT SCH ×3 (09:26→17:00)
[2018-08-05] MEDS: HYDROCODONE/APAP 5/325MG 1 EACH TABLET GT SCH ×2 (09:26→21:42)
[2018-08-05 20:15] VITALS: BP 119/77
[2018-08-05] MEDS: ZINC SULFATE 220 MG CAPSULE GT SCH (21:42)
[2018-08-05] MEDS: ENOXAPARIN SODIUM 40 MG/0.4 ML DISP.SYRIN SQ SCH (21:43)
[2018-08-05] MEDS: ATORVASTATIN 10 MG TABLET GT SCH (21:44)
[2018-08-05] MEDS: POLYETHYLENE GLYCOL 3350 17 GM POWD.PACK GT SCH (21:44)
[2018-08-06] MEDS: IPRATROPIUM NEB FS 0.5 MG/2.5 ML AMPUL.NEB NEB SCH ×4 (01:18→19:59)
[2018-08-06] MEDS: SUCRALFATE 1 G/10 ML UDC GT SCH ×4 (05:39→21:21)
[2018-08-06 08:02] VITALS: BP 132/69
[2018-08-06] MEDS: DAKINS HALF STRENGTH (0.25%) 480 ML BOTTLE TOP SCH ×2 (09:00→21:24)
[2018-08-06] MEDS: CADEXOMER IODINE 40 GM TUBE TP SCH (09:00)
[2018-08-06] MEDS: HYDROGEN PEROXIDE 480 ML BOTTLE TP SCH ×2 (09:00→21:24)
[2018-08-06] MEDS: DAKINS QUARTER STRENGTH (0.125%) 480 ML BOTTLE TOP SCH ×2 (09:00→21:24)
[2018-08-06] MEDS: HYDROGEL DRESSING 90 GM TUBE TP SCH ×4 (09:00→21:24)
[2018-08-06] MEDS: BACI/NEOM/POLY B OINT PKT 1 UDPKT PACKET TP SCH ×2 (09:00→21:25)
[2018-08-06] MEDS: GABAPENTIN 250 MG/5 ML GT SCH ×3 (09:26→17:31)
[2018-08-06] MEDS: ACIDOPHILUS/BULGARICUS 1 EACH TAB.CHEW GT SCH ×3 (09:26→17:31)
[2018-08-06] MEDS: BACLOFEN (10 MG) 10 MG TABLET GT SCH ×4 (09:27→21:22)
[2018-08-06] MEDS: ESCITALOPRAM OXALATE (10 MG) 10 MG TABLET GT SCH (09:27)
[2018-08-06] MEDS: HYDROCODONE/APAP 5/325MG 1 EACH TABLET GT SCH ×2 (09:28→21:22)
[2018-08-06] MEDS: METHADONE HCL 10 MG TABLET GT SCH (09:28)
[2018-08-06] MEDS: ASCORBIC ACID 500 MG TABLET GT SCH ×2 (09:29→17:31)
[2018-08-06] MEDS: FAMOTIDINE (20 MG) 20 MG TABLET GT SCH ×2 (09:29→21:23)
[2018-08-06] MEDS: PROSTAT (PYXIS) 30 ML UDC GT SCH ×3 (09:29→17:31)
[2018-08-06] MEDS: MULTIVIT W/MINERALS 1 TAB TABLET GT SCH (09:29)
[2018-08-06] MEDS: CALCIUM CARBONATE 500 MG TAB.CHEW GT SCH ×3 (09:29→17:31)
[2018-08-06] MEDS: CALCITRIOL 0.25 MCG CAPSULE PO SCH (09:29)
[2018-08-06 20:04] VITALS: BP 111/75
[2018-08-06] MEDS: ENOXAPARIN SODIUM 40 MG/0.4 ML DISP.SYRIN SQ SCH (21:23)
[2018-08-06] MEDS: ZINC SULFATE 220 MG CAPSULE GT SCH (21:23)
[2018-08-06] MEDS: ATORVASTATIN 10 MG TABLET GT SCH (21:25)
[2018-08-06] MEDS: POLYETHYLENE GLYCOL 3350 17 GM POWD.PACK GT SCH (21:25)
[2018-08-07] MEDS: IPRATROPIUM NEB FS 0.5 MG/2.5 ML AMPUL.NEB NEB SCH ×4 (01:54→20:25)
[2018-08-07] MEDS: SUCRALFATE 1 G/10 ML UDC GT SCH ×4 (05:36→20:30)
[2018-08-07 07:42] VITALS: BP 146/70
[2018-08-07] MEDS: DAKINS HALF STRENGTH (0.25%) 480 ML BOTTLE TOP SCH ×2 (09:00→21:33)
[2018-08-07] MEDS: HYDROGEL DRESSING 90 GM TUBE TP SCH ×4 (09:00→21:33)
[2018-08-07] MEDS: DAKINS QUARTER STRENGTH (0.125%) 480 ML BOTTLE TOP SCH ×2 (09:00→21:33)
[2018-08-07] MEDS: CADEXOMER IODINE 40 GM TUBE TP SCH (09:00)
[2018-08-07] MEDS: HYDROGEN PEROXIDE 480 ML BOTTLE TP SCH ×2 (09:00→21:33)
[2018-08-07] MEDS: BACI/NEOM/POLY B OINT PKT 1 UDPKT PACKET TP SCH ×2 (09:00→21:33)
[2018-08-07] MEDS: ACIDOPHILUS/BULGARICUS 1 EACH TAB.CHEW GT SCH ×3 (09:18→17:14)
[2018-08-07] MEDS: GABAPENTIN 250 MG/5 ML GT SCH ×3 (09:18→17:14)
[2018-08-07] MEDS: ESCITALOPRAM OXALATE (10 MG) 10 MG TABLET GT SCH (09:18)
[2018-08-07] MEDS: BACLOFEN (10 MG) 10 MG TABLET GT SCH ×4 (09:18→21:31)
[2018-08-07] MEDS: FAMOTIDINE (20 MG) 20 MG TABLET GT SCH ×2 (09:19→21:32)
[2018-08-07] MEDS: MULTIVIT W/MINERALS 1 TAB TABLET GT SCH (09:19)
[2018-08-07] MEDS: CALCITRIOL 0.25 MCG CAPSULE PO SCH (09:19)
[2018-08-07] MEDS: ASCORBIC ACID 500 MG TABLET GT SCH ×2 (09:19→17:14)
[2018-08-07] MEDS: CALCIUM CARBONATE 500 MG TAB.CHEW GT SCH ×3 (09:19→17:14)
[2018-08-07] MEDS: METHADONE HCL 10 MG TABLET GT SCH (09:19)
[2018-08-07] MEDS: PROSTAT (PYXIS) 30 ML UDC GT SCH ×3 (09:19→17:14)
[2018-08-07] MEDS: HYDROCODONE/APAP 5/325MG 1 EACH TABLET GT SCH ×2 (09:30→21:32)
--- NOTE | 2018-08-07 09:30 | NUR ---
Seen and examined by Dr. Ugarte, nuclear officer. NNO given at this time.
[2018-08-07 20:29] VITALS: BP 107/73
[2018-08-07] MEDS: ENOXAPARIN SODIUM 40 MG/0.4 ML DISP.SYRIN SQ SCH (21:29)
[2018-08-07] MEDS: ZINC SULFATE 220 MG CAPSULE GT SCH (21:32)
[2018-08-07] MEDS: ATORVASTATIN 10 MG TABLET GT SCH (21:33)
[2018-08-07] MEDS: POLYETHYLENE GLYCOL 3350 17 GM POWD.PACK GT SCH (21:34)
[2018-08-08] MEDS: IPRATROPIUM NEB FS 0.5 MG/2.5 ML AMPUL.NEB NEB SCH ×4 (02:23→20:22)
[2018-08-08] MEDS: SUCRALFATE 1 G/10 ML UDC GT SCH ×4 (05:39→21:21)
[2018-08-08 07:37] VITALS: BP 122/75
[2018-08-08] MEDS: ACIDOPHILUS/BULGARICUS 1 EACH TAB.CHEW GT SCH ×3 (09:45→17:00)
[2018-08-08] MEDS: GABAPENTIN 250 MG/5 ML GT SCH ×3 (09:45→17:00)
[2018-08-08] MEDS: BACLOFEN (10 MG) 10 MG TABLET GT SCH ×4 (09:46→21:21)
[2018-08-08] MEDS: PROSTAT (PYXIS) 30 ML UDC GT SCH ×3 (09:46→17:00)
[2018-08-08] MEDS: FAMOTIDINE (20 MG) 20 MG TABLET GT SCH ×2 (09:46→21:21)
[2018-08-08] MEDS: CALCIUM CARBONATE 500 MG TAB.CHEW GT SCH ×3 (09:46→17:00)
[2018-08-08] MEDS: ASCORBIC ACID 500 MG TABLET GT SCH ×2 (09:46→17:00)
[2018-08-08] MEDS: ESCITALOPRAM OXALATE (10 MG) 10 MG TABLET GT SCH (09:46)
[2018-08-08] MEDS: HYDROCODONE/APAP 5/325MG 1 EACH TABLET GT SCH ×2 (09:46→21:21)
[2018-08-08] MEDS: METHADONE HCL 10 MG TABLET GT SCH (09:46)
[2018-08-08] MEDS: MULTIVIT W/MINERALS 1 TAB TABLET GT SCH (09:46)
[2018-08-08] MEDS: CALCITRIOL 0.25 MCG CAPSULE PO SCH (09:47)
[2018-08-08] MEDS: DAKINS QUARTER STRENGTH (0.125%) 480 ML BOTTLE TOP SCH ×2 (09:47→22:00)
[2018-08-08] MEDS: DAKINS HALF STRENGTH (0.25%) 480 ML BOTTLE TOP SCH ×2 (09:47→22:00)
[2018-08-08] MEDS: HYDROGEL DRESSING 90 GM TUBE TP SCH ×4 (09:48→22:00)
[2018-08-08] MEDS: HYDROGEN PEROXIDE 480 ML BOTTLE TP SCH ×2 (09:49→22:00)
[2018-08-08] MEDS: CADEXOMER IODINE 40 GM TUBE TP SCH (09:49)
[2018-08-08] MEDS: BACI/NEOM/POLY B OINT PKT 1 UDPKT PACKET TP SCH ×2 (09:50→22:00)
--- NOTE | 2018-08-08 10:20 | NUR ---
WOUND CARE CONSULT WOUND CARE RECEIVED CONSULT FOR MID UPPER BACK OPEN SKIN. WOUND CARE WILL DEFER CONSULT TO PLASTIC SURGICAL TEAM WHO ARE CURRENTLY FOLLOWING THIS PATIENT. PLASTIC TEAM NOTIFIED OF THE CONSULT BY POWDER NIPPER. DISCUSSED WITH SWEATBAND DECORATING MACHINE OPERATOR. WILL SEE PRN.
--- NOTE | 2018-08-08 15:19 | NUR ---
RT PT IS AWAKE AND ALERT. MONTHLY TRACH CHANGE DONE WITH NEW SHILEY 8 CUFFED. TRACH CHANGE DONE WITH NO COMPLICATIONS. EQUAL BILATERAL BREATH SOUNDS AND CHEST RISE NOTED. NO BLEEDING OR REDNESS NOTICED AT TRACH SITE. PT PLACED BACK ON COOL AEROSOL. NO RESPIRATORY DISTRESS NOTED. Addendum: 08/08/18 at 1605 by ESPERANZA HOOPER RT Amended: Links added.
--- NOTE | 2018-08-08 15:30 | NUR ---
Seen and examined by Dr. Seaman, NNO given.
[2018-08-08 20:11] VITALS: BP 123/76
[2018-08-08] MEDS: ZINC SULFATE 220 MG CAPSULE GT SCH (21:21)
[2018-08-08] MEDS: ENOXAPARIN SODIUM 40 MG/0.4 ML DISP.SYRIN SQ SCH (21:22)
[2018-08-08] MEDS: ATORVASTATIN 10 MG TABLET GT SCH (21:22)
[2018-08-08] MEDS: POLYETHYLENE GLYCOL 3350 17 GM POWD.PACK GT SCH (21:22)
[2018-08-09] MEDS: IPRATROPIUM NEB FS 0.5 MG/2.5 ML AMPUL.NEB NEB SCH ×4 (01:45→19:36)
[2018-08-09] MEDS: SUCRALFATE 1 G/10 ML UDC GT SCH ×4 (05:54→21:20)
[2018-08-09] MEDS: MAGNESIUM HYDROXIDE 30 ML UDC GT PRN ×2 (05:55→23:00)
[2018-08-09 07:58] VITALS: BP 121/75
[2018-08-09] MEDS: HYDROGEN PEROXIDE 480 ML BOTTLE TP SCH ×2 (09:00→22:00)
[2018-08-09] MEDS: ESCITALOPRAM OXALATE (10 MG) 10 MG TABLET GT SCH (09:27)
[2018-08-09] MEDS: GABAPENTIN 250 MG/5 ML GT SCH ×3 (09:27→17:44)
[2018-08-09] MEDS: BACLOFEN (10 MG) 10 MG TABLET GT SCH ×4 (09:27→21:20)
[2018-08-09] MEDS: ACIDOPHILUS/BULGARICUS 1 EACH TAB.CHEW GT SCH ×3 (09:27→17:44)
[2018-08-09] MEDS: CALCIUM CARBONATE 500 MG TAB.CHEW GT SCH ×3 (09:28→17:44)
[2018-08-09] MEDS: CALCITRIOL 0.25 MCG CAPSULE PO SCH (09:28)
[2018-08-09] MEDS: METHADONE HCL 10 MG TABLET GT SCH (09:28)
[2018-08-09] MEDS: PROSTAT (PYXIS) 30 ML UDC GT SCH ×3 (09:28→17:44)
[2018-08-09] MEDS: MULTIVIT W/MINERALS 1 TAB TABLET GT SCH (09:28)
[2018-08-09] MEDS: ASCORBIC ACID 500 MG TABLET GT SCH ×2 (09:28→17:44)
[2018-08-09] MEDS: FAMOTIDINE (20 MG) 20 MG TABLET GT SCH ×2 (09:28→21:20)
[2018-08-09] MEDS: HYDROCODONE/APAP 5/325MG 1 EACH TABLET GT SCH ×2 (09:28→21:21)
[2018-08-09] MEDS: DAKINS QUARTER STRENGTH (0.125%) 480 ML BOTTLE TOP SCH ×2 (10:00→22:00)
[2018-08-09] MEDS: HYDROGEL DRESSING 90 GM TUBE TP SCH ×4 (10:00→22:00)
[2018-08-09] MEDS: CADEXOMER IODINE 40 GM TUBE TP SCH (10:00)
[2018-08-09] MEDS: DAKINS HALF STRENGTH (0.25%) 480 ML BOTTLE TOP SCH ×2 (10:00→22:00)
[2018-08-09] MEDS: HYDROCODONE/APAP 5/325MG 1 EACH TABLET GT PRN (17:50)
--- NOTE | 2018-08-09 19:30 | NUR ---
Seen and examined by Peggy alexander.
[2018-08-09 20:24] VITALS: BP 100/58
[2018-08-09] MEDS: ZINC SULFATE 220 MG CAPSULE GT SCH (21:20)
[2018-08-09] MEDS: ENOXAPARIN SODIUM 40 MG/0.4 ML DISP.SYRIN SQ SCH (21:21)
[2018-08-09] MEDS: POLYETHYLENE GLYCOL 3350 17 GM POWD.PACK GT SCH (21:22)
[2018-08-09] MEDS: ATORVASTATIN 10 MG TABLET GT SCH (21:22)
[2018-08-10] MEDS: IPRATROPIUM NEB FS 0.5 MG/2.5 ML AMPUL.NEB NEB SCH ×4 (00:57→19:07)
[2018-08-10] MEDS: SUCRALFATE 1 G/10 ML UDC GT SCH ×4 (05:33→20:35)
[2018-08-10 07:56] VITALS: BP 154/85
[2018-08-10] MEDS: GABAPENTIN 250 MG/5 ML GT SCH ×3 (09:04→17:43)
[2018-08-10] MEDS: BACLOFEN (10 MG) 10 MG TABLET GT SCH ×4 (09:04→20:35)
[2018-08-10] MEDS: ESCITALOPRAM OXALATE (10 MG) 10 MG TABLET GT SCH (09:04)
[2018-08-10] MEDS: ACIDOPHILUS/BULGARICUS 1 EACH TAB.CHEW GT SCH ×3 (09:04→17:43)
[2018-08-10] MEDS: PROSTAT (PYXIS) 30 ML UDC GT SCH ×3 (09:05→17:43)
[2018-08-10] MEDS: CALCIUM CARBONATE 500 MG TAB.CHEW GT SCH ×3 (09:05→17:43)
[2018-08-10] MEDS: FAMOTIDINE (20 MG) 20 MG TABLET GT SCH ×2 (09:05→20:36)
[2018-08-10] MEDS: MULTIVIT W/MINERALS 1 TAB TABLET GT SCH (09:05)
[2018-08-10] MEDS: HYDROCODONE/APAP 5/325MG 1 EACH TABLET GT SCH ×2 (09:05→20:36)
[2018-08-10] MEDS: ASCORBIC ACID 500 MG TABLET GT SCH ×2 (09:05→17:43)
[2018-08-10] MEDS: CALCITRIOL 0.25 MCG CAPSULE PO SCH (09:05)
[2018-08-10] MEDS: METHADONE HCL 10 MG TABLET GT SCH (09:05)
[2018-08-10] MEDS: CADEXOMER IODINE 40 GM TUBE TP SCH (09:40)
[2018-08-10] MEDS: HYDROGEL DRESSING 90 GM TUBE TP SCH ×3 (09:40→20:37)
[2018-08-10] MEDS: DAKINS QUARTER STRENGTH (0.125%) 480 ML BOTTLE TOP SCH ×2 (09:40→20:37)
[2018-08-10] MEDS: DAKINS HALF STRENGTH (0.25%) 480 ML BOTTLE TOP SCH ×2 (09:40→20:37)
[2018-08-10] MEDS: HYDROGEN PEROXIDE 480 ML BOTTLE TP SCH ×2 (13:37→20:37)
--- NOTE | 2018-08-10 14:30 | NUR ---
INTERDISCIPLINARY PLAN OF CARE CONFERENCE was held today Resident's sister in law Esparza unable to attend the meeting. Dr. Ugarte and the interdisciplinary team discussed the current plan of care in detail. Current orders as well as treatments and medications were reviewed. No change in condition. Patient continue with local treatment of existing wounds. He is being followed by Dr. Rafiq López and his team for wound consults. NNO given at this time.
--- NOTE | 2018-08-10 17:09 | NUR ---
RT NOTE: RECEIVED PT ON NOTED VENT SETTINGS. PLACED PT ON 28% C/A PER QDAY ORDER. TERRANCE WELL. NO RESPIRATORY DISTRESS NOTED. TRACH CHECKED SECURE AND PATENT. SXD AND LAVAGED Q ROUND AND NEEDED. TXS GIVEN ORDERED WITH NO ADVERSE REACTIONS NOTED. SPARE TRACH AND AMBU BAG @ BEDSIDE. ALARMS CHECKED ON AND AUDIBLE. Addendum: 08/10/18 at 1711 by LAILA JON RT Amended: Links added.
[2018-08-10 20:16] VITALS: BP 101/58
[2018-08-10] MEDS: ZINC SULFATE 220 MG CAPSULE GT SCH (20:36)
[2018-08-10] MEDS: ENOXAPARIN SODIUM 40 MG/0.4 ML DISP.SYRIN SQ SCH (21:49)
[2018-08-10] MEDS: ATORVASTATIN 10 MG TABLET GT SCH (21:50)
[2018-08-10] MEDS: POLYETHYLENE GLYCOL 3350 17 GM POWD.PACK GT SCH (21:50)
[2018-08-11] MEDS: IPRATROPIUM NEB FS 0.5 MG/2.5 ML AMPUL.NEB NEB SCH ×4 (00:39→19:21)
[2018-08-11] MEDS: HYDROCODONE/APAP 5/325MG 1 EACH TABLET GT PRN ×2 (01:35→17:30)
[2018-08-11] MEDS: SUCRALFATE 1 G/10 ML UDC GT SCH ×4 (05:57→21:29)
[2018-08-11 07:26] VITALS: BP 158/78
[2018-08-11] MEDS: HYDROGEN PEROXIDE 480 ML BOTTLE TP SCH ×2 (08:08→21:31)
[2018-08-11] MEDS: CALCITRIOL 0.25 MCG CAPSULE PO SCH (09:32)
[2018-08-11] MEDS: CALCIUM CARBONATE 500 MG TAB.CHEW GT SCH ×3 (09:32→17:00)
[2018-08-11] MEDS: HYDROCODONE/APAP 5/325MG 1 EACH TABLET GT SCH ×2 (09:32→21:30)
[2018-08-11] MEDS: MULTIVIT W/MINERALS 1 TAB TABLET GT SCH (09:32)
[2018-08-11] MEDS: ESCITALOPRAM OXALATE (10 MG) 10 MG TABLET GT SCH (09:32)
[2018-08-11] MEDS: FAMOTIDINE (20 MG) 20 MG TABLET GT SCH ×2 (09:32→21:30)
[2018-08-11] MEDS: PROSTAT (PYXIS) 30 ML UDC GT SCH ×3 (09:32→17:00)
[2018-08-11] MEDS: BACLOFEN (10 MG) 10 MG TABLET GT SCH ×4 (09:32→21:29)
[2018-08-11] MEDS: ACIDOPHILUS/BULGARICUS 1 EACH TAB.CHEW GT SCH ×3 (09:32→17:00)
[2018-08-11] MEDS: GABAPENTIN 250 MG/5 ML GT SCH ×3 (09:32→17:00)
[2018-08-11] MEDS: METHADONE HCL 10 MG TABLET GT SCH (09:32)
[2018-08-11] MEDS: ASCORBIC ACID 500 MG TABLET GT SCH ×2 (09:32→17:00)
[2018-08-11] MEDS: DAKINS HALF STRENGTH (0.25%) 480 ML BOTTLE TOP SCH ×2 (10:15→21:30)
[2018-08-11] MEDS: CADEXOMER IODINE 40 GM TUBE TP SCH (10:15)
[2018-08-11] MEDS: DAKINS QUARTER STRENGTH (0.125%) 480 ML BOTTLE TOP SCH ×2 (10:15→21:30)
--- NOTE | 2018-08-11 15:57 | NUR ---
RT NOTE: RECEIVED PT ON NOTED VENT SETTINGS. PLACED PT ON 28% C/A PER MD QDAY ORDER. TERRANCE WELL. NO RESPIRATORY DISTRESS NOTED. TRACH CHECKED SECURE AND PATENT. SXD AND LAVAGED Q ROUND AND NEEDED. TXS GIVEN ORDERED WITH NO ADVERSE REACTIONS NOTED. SPARE TRACH AND AMBU BAG @ BEDSIDE. ALARMS CHECKED ON AND AUDIBLE.
[2018-08-11 20:24] VITALS: BP 92/55
[2018-08-11] MEDS: ENOXAPARIN SODIUM 40 MG/0.4 ML DISP.SYRIN SQ SCH (21:30)
[2018-08-11] MEDS: ZINC SULFATE 220 MG CAPSULE GT SCH (21:30)
[2018-08-11] MEDS: ATORVASTATIN 10 MG TABLET GT SCH (21:31)
[2018-08-11] MEDS: POLYETHYLENE GLYCOL 3350 17 GM POWD.PACK GT SCH (21:31)
[2018-08-12] MEDS: IPRATROPIUM NEB FS 0.5 MG/2.5 ML AMPUL.NEB NEB SCH ×4 (01:27→19:02)
[2018-08-12] MEDS: SUCRALFATE 1 G/10 ML UDC GT SCH ×4 (05:35→21:19)
[2018-08-12 07:44] VITALS: BP 119/70
[2018-08-12] MEDS: GABAPENTIN 250 MG/5 ML GT SCH ×3 (09:06→17:02)
[2018-08-12] MEDS: ESCITALOPRAM OXALATE (10 MG) 10 MG TABLET GT SCH (09:06)
[2018-08-12] MEDS: BACLOFEN (10 MG) 10 MG TABLET GT SCH ×4 (09:06→21:19)
[2018-08-12] MEDS: ACIDOPHILUS/BULGARICUS 1 EACH TAB.CHEW GT SCH ×3 (09:06→17:04)
[2018-08-12] MEDS: PROSTAT (PYXIS) 30 ML UDC GT SCH ×3 (09:07→17:04)
[2018-08-12] MEDS: CALCIUM CARBONATE 500 MG TAB.CHEW GT SCH ×3 (09:07→17:04)
[2018-08-12] MEDS: METHADONE HCL 10 MG TABLET GT SCH (09:07)
[2018-08-12] MEDS: MULTIVIT W/MINERALS 1 TAB TABLET GT SCH (09:07)
[2018-08-12] MEDS: FAMOTIDINE (20 MG) 20 MG TABLET GT SCH ×2 (09:07→21:19)
[2018-08-12] MEDS: CALCITRIOL 0.25 MCG CAPSULE PO SCH (09:07)
[2018-08-12] MEDS: ASCORBIC ACID 500 MG TABLET GT SCH ×2 (09:07→17:04)
[2018-08-12] MEDS: CADEXOMER IODINE 40 GM TUBE TP SCH (11:00)
[2018-08-12] MEDS: DAKINS HALF STRENGTH (0.25%) 480 ML BOTTLE TOP SCH ×2 (11:00→21:20)
[2018-08-12] MEDS: HYDROGEN PEROXIDE 480 ML BOTTLE TP SCH ×2 (11:00→21:20)
[2018-08-12] MEDS: DAKINS QUARTER STRENGTH (0.125%) 480 ML BOTTLE TOP SCH ×2 (11:00→21:20)
[2018-08-12] MEDS: HYDROCODONE/APAP 5/325MG 1 EACH TABLET GT SCH ×2 (11:00→21:19)
--- NOTE | 2018-08-12 12:20 | NUR ---
RT NOTE RECEIVED PT MECHANICALLY VENTILATED VIA CUFFED TRACHEOSTOMY TUBE. CUFF INFLATED. SETTINGS PRESCRIBED. PT PLACED ON CA PER MD ORDER. PT AWAKE AND ALERT. NO DISTRESS NOTED. CUFF DEFLATED. AMBU BAG AND BACK UP TRACH AT BED SIDE. NO DISTRESS NOTED. Addendum: 08/12/18 at 1222 by KAJAL ARAIZA RT Amended: Links added.
[2018-08-12 20:00] VITALS: BP 113/65
[2018-08-12] MEDS: ZINC SULFATE 220 MG CAPSULE GT SCH (21:19)
[2018-08-12] MEDS: ATORVASTATIN 10 MG TABLET GT SCH (21:20)
[2018-08-12] MEDS: ENOXAPARIN SODIUM 40 MG/0.4 ML DISP.SYRIN SQ SCH (21:20)
[2018-08-12] MEDS: POLYETHYLENE GLYCOL 3350 17 GM POWD.PACK GT SCH (21:20)
[2018-08-13] MEDS: IPRATROPIUM NEB FS 0.5 MG/2.5 ML AMPUL.NEB NEB SCH ×4 (00:57→19:30)
[2018-08-13] MEDS: SUCRALFATE 1 G/10 ML UDC GT SCH ×4 (05:24→20:30)
[2018-08-13 08:01] VITALS: BP 126/77
[2018-08-13] MEDS: METHADONE HCL 10 MG TABLET GT SCH (08:20)
[2018-08-13] MEDS: GABAPENTIN 250 MG/5 ML GT SCH ×3 (08:22→16:46)
[2018-08-13] MEDS: PROSTAT (PYXIS) 30 ML UDC GT SCH ×3 (08:23→16:47)
[2018-08-13] MEDS: ACIDOPHILUS/BULGARICUS 1 EACH TAB.CHEW GT SCH ×3 (08:23→16:46)
[2018-08-13] MEDS: BACLOFEN (10 MG) 10 MG TABLET GT SCH ×4 (08:23→21:34)
[2018-08-13] MEDS: CALCITRIOL 0.25 MCG CAPSULE PO SCH (08:23)
[2018-08-13] MEDS: ASCORBIC ACID 500 MG TABLET GT SCH ×2 (08:23→16:48)
[2018-08-13] MEDS: FAMOTIDINE (20 MG) 20 MG TABLET GT SCH ×2 (08:23→21:35)
[2018-08-13] MEDS: MULTIVIT W/MINERALS 1 TAB TABLET GT SCH (08:23)
[2018-08-13] MEDS: ESCITALOPRAM OXALATE (10 MG) 10 MG TABLET GT SCH (08:23)
[2018-08-13] MEDS: CALCIUM CARBONATE 500 MG TAB.CHEW GT SCH ×3 (08:23→16:47)
[2018-08-13] MEDS: HYDROCODONE/APAP 5/325MG 1 EACH TABLET GT SCH ×2 (09:20→21:34)
[2018-08-13] MEDS: HYDROGEN PEROXIDE 480 ML BOTTLE TP SCH ×2 (10:20→21:36)
[2018-08-13] MEDS: DAKINS HALF STRENGTH (0.25%) 480 ML BOTTLE TOP SCH ×2 (10:20→21:35)
[2018-08-13] MEDS: CADEXOMER IODINE 40 GM TUBE TP SCH (10:20)
[2018-08-13] MEDS: DAKINS QUARTER STRENGTH (0.125%) 480 ML BOTTLE TOP SCH ×2 (10:20→21:35)
[2018-08-13] MEDS: ACETAMINOPHEN 650 MG/20 ML UDC- SA PATIENTS-PAIN ONLY GT PRN (18:05)
[2018-08-13 19:37] VITALS: BP 92/50
[2018-08-13] MEDS: ZINC SULFATE 220 MG CAPSULE GT SCH (21:35)
[2018-08-13] MEDS: ENOXAPARIN SODIUM 40 MG/0.4 ML DISP.SYRIN SQ SCH (21:35)
[2018-08-13] MEDS: POLYETHYLENE GLYCOL 3350 17 GM POWD.PACK GT SCH (21:36)
[2018-08-13] MEDS: ATORVASTATIN 10 MG TABLET GT SCH (21:36)
[2018-08-14] MEDS: IPRATROPIUM NEB FS 0.5 MG/2.5 ML AMPUL.NEB NEB SCH ×4 (01:20→19:59)
[2018-08-14] MEDS: SUCRALFATE 1 G/10 ML UDC GT SCH ×4 (05:35→20:49)
[2018-08-14 08:25] VITALS: BP 118/73
[2018-08-14] MEDS: FAMOTIDINE (20 MG) 20 MG TABLET GT SCH ×2 (09:00→21:08)
[2018-08-14] MEDS: ASCORBIC ACID 500 MG TABLET GT SCH ×2 (09:00→17:32)
[2018-08-14] MEDS: ACIDOPHILUS/BULGARICUS 1 EACH TAB.CHEW GT SCH ×3 (09:00→17:32)
[2018-08-14] MEDS: CALCITRIOL 0.25 MCG CAPSULE PO SCH (09:00)
[2018-08-14] MEDS: GABAPENTIN 250 MG/5 ML GT SCH ×3 (09:00→17:32)
[2018-08-14] MEDS: HYDROGEN PEROXIDE 480 ML BOTTLE TP SCH ×2 (09:00→20:01)
[2018-08-14] MEDS: CALCIUM CARBONATE 500 MG TAB.CHEW GT SCH ×3 (09:00→17:32)
[2018-08-14] MEDS: BACLOFEN (10 MG) 10 MG TABLET GT SCH ×4 (09:00→21:07)
[2018-08-14] MEDS: ESCITALOPRAM OXALATE (10 MG) 10 MG TABLET GT SCH (09:00)
[2018-08-14] MEDS: PROSTAT (PYXIS) 30 ML UDC GT SCH ×3 (09:00→17:32)
[2018-08-14] MEDS: METHADONE HCL 10 MG TABLET GT SCH (09:00)
[2018-08-14] MEDS: MULTIVIT W/MINERALS 1 TAB TABLET GT SCH (09:01)
[2018-08-14] MEDS: HYDROCODONE/APAP 5/325MG 1 EACH TABLET GT SCH ×2 (10:02→21:08)
[2018-08-14] MEDS: DAKINS QUARTER STRENGTH (0.125%) 480 ML BOTTLE TOP SCH ×2 (11:40→21:09)
[2018-08-14] MEDS: DAKINS HALF STRENGTH (0.25%) 480 ML BOTTLE TOP SCH ×2 (11:40→21:08)
[2018-08-14 20:44] VITALS: BP 116/75
[2018-08-14] MEDS: ZINC SULFATE 220 MG CAPSULE GT SCH (21:08)
[2018-08-14] MEDS: ENOXAPARIN SODIUM 40 MG/0.4 ML DISP.SYRIN SQ SCH (21:08)
[2018-08-14] MEDS: POLYETHYLENE GLYCOL 3350 17 GM POWD.PACK GT SCH (21:09)
[2018-08-14] MEDS: ATORVASTATIN 10 MG TABLET GT SCH (21:09)
[2018-08-15] MEDS: IPRATROPIUM NEB FS 0.5 MG/2.5 ML AMPUL.NEB NEB SCH ×4 (02:11→19:59)
[2018-08-15] MEDS: SUCRALFATE 1 G/10 ML UDC GT SCH ×4 (05:26→21:05)
[2018-08-15 07:52] VITALS: BP 119/62
--- NOTE | 2018-08-15 08:19 | NUR ---
pt rec'd mech vent and placed on cool aerosol per md orders. no resp distress or sob noted. sx;d for mod amt of pale yellow secretions. ambu bag and back up trach bedside. will continue to monitor. Addendum: 08/15/18 at 0820 by CAITLIN SOTO RT Amended: Links added.
[2018-08-15] MEDS: BACLOFEN (10 MG) 10 MG TABLET GT SCH ×4 (08:21→21:06)
[2018-08-15] MEDS: ACIDOPHILUS/BULGARICUS 1 EACH TAB.CHEW GT SCH ×3 (08:21→17:55)
[2018-08-15] MEDS: ESCITALOPRAM OXALATE (10 MG) 10 MG TABLET GT SCH (08:21)
[2018-08-15] MEDS: GABAPENTIN 250 MG/5 ML GT SCH ×3 (08:21→17:55)
[2018-08-15] MEDS: METHADONE HCL 10 MG TABLET GT SCH (08:22)
[2018-08-15] MEDS: CALCITRIOL 0.25 MCG CAPSULE PO SCH (08:22)
[2018-08-15] MEDS: FAMOTIDINE (20 MG) 20 MG TABLET GT SCH ×2 (08:22→21:06)
[2018-08-15] MEDS: MULTIVIT W/MINERALS 1 TAB TABLET GT SCH (08:22)
[2018-08-15] MEDS: ASCORBIC ACID 500 MG TABLET GT SCH ×2 (08:22→17:55)
[2018-08-15] MEDS: PROSTAT (PYXIS) 30 ML UDC GT SCH ×3 (08:22→17:55)
[2018-08-15] MEDS: CALCIUM CARBONATE 500 MG TAB.CHEW GT SCH ×3 (08:22→17:55)
[2018-08-15] MEDS: HYDROCODONE/APAP 5/325MG 1 EACH TABLET GT SCH ×2 (12:00→21:10)
[2018-08-15] MEDS: HYDROGEN PEROXIDE 480 ML BOTTLE TP SCH ×2 (13:00→20:00)
[2018-08-15] MEDS: DAKINS HALF STRENGTH (0.25%) 480 ML BOTTLE TOP SCH ×2 (13:00→21:13)
[2018-08-15] MEDS: DAKINS QUARTER STRENGTH (0.125%) 480 ML BOTTLE TOP SCH ×2 (13:00→21:13)
[2018-08-15 20:35] VITALS: BP 115/72
[2018-08-15] MEDS: ZINC SULFATE 220 MG CAPSULE GT SCH (21:10)
[2018-08-15] MEDS: ENOXAPARIN SODIUM 40 MG/0.4 ML DISP.SYRIN SQ SCH (21:12)
[2018-08-15] MEDS: POLYETHYLENE GLYCOL 3350 17 GM POWD.PACK GT SCH (21:13)
[2018-08-15] MEDS: ATORVASTATIN 10 MG TABLET GT SCH (21:13)
[2018-08-16] MEDS: IPRATROPIUM NEB FS 0.5 MG/2.5 ML AMPUL.NEB NEB SCH ×4 (02:07→19:07)
[2018-08-16] MEDS: HYDROCODONE/APAP 5/325MG 1 EACH TABLET GT PRN (02:33)
--- NOTE | 2018-08-16 02:33 | NUR ---
hogshead cooper notes c/o generalized pain specially sacrum area, norco tablet given remigio SQ as ordered per pt requested. reposition him and kept him comfortable at all times. will continue monitoring.
[2018-08-16] MEDS: SUCRALFATE 1 G/10 ML UDC GT SCH ×4 (05:57→21:02)
[2018-08-16 08:05] VITALS: BP 138/73
[2018-08-16] MEDS: PROSTAT (PYXIS) 30 ML UDC GT SCH ×3 (09:00→17:57)
[2018-08-16] MEDS: CALCITRIOL 0.25 MCG CAPSULE PO SCH (09:00)
[2018-08-16] MEDS: MULTIVIT W/MINERALS 1 TAB TABLET GT SCH (09:00)
[2018-08-16] MEDS: FAMOTIDINE (20 MG) 20 MG TABLET GT SCH ×2 (09:00→21:03)
[2018-08-16] MEDS: ESCITALOPRAM OXALATE (10 MG) 10 MG TABLET GT SCH (09:00)
[2018-08-16] MEDS: ASCORBIC ACID 500 MG TABLET GT SCH ×2 (09:00→17:57)
[2018-08-16] MEDS: ACIDOPHILUS/BULGARICUS 1 EACH TAB.CHEW GT SCH ×3 (09:00→17:57)
[2018-08-16] MEDS: GABAPENTIN 250 MG/5 ML GT SCH ×3 (09:00→17:57)
[2018-08-16] MEDS: HYDROGEN PEROXIDE 480 ML BOTTLE TP SCH ×2 (09:00→21:04)
[2018-08-16] MEDS: BACLOFEN (10 MG) 10 MG TABLET GT SCH ×4 (09:00→21:02)
[2018-08-16] MEDS: CALCIUM CARBONATE 500 MG TAB.CHEW GT SCH ×3 (09:00→17:57)
[2018-08-16] MEDS: HYDROCODONE/APAP 5/325MG 1 EACH TABLET GT SCH ×2 (10:20→21:03)
[2018-08-16] MEDS: METHADONE HCL 10 MG TABLET GT SCH (10:20)
[2018-08-16] MEDS: HYDROGEL DRESSING 90 GM TUBE TP SCH ×4 (10:50→21:04)
[2018-08-16] MEDS: DAKINS HALF STRENGTH (0.25%) 480 ML BOTTLE TOP SCH ×2 (10:50→21:04)
[2018-08-16] MEDS: DAKINS QUARTER STRENGTH (0.125%) 480 ML BOTTLE TOP SCH ×2 (10:50→21:04)
[2018-08-16] MEDS: ZINC SULFATE 220 MG CAPSULE GT SCH (21:03)
[2018-08-16] MEDS: POLYETHYLENE GLYCOL 3350 17 GM POWD.PACK GT SCH (21:04)
[2018-08-16] MEDS: ATORVASTATIN 10 MG TABLET GT SCH (21:04)
[2018-08-16] MEDS: ENOXAPARIN SODIUM 40 MG/0.4 ML DISP.SYRIN SQ SCH (21:04)
[2018-08-17] MEDS: IPRATROPIUM NEB FS 0.5 MG/2.5 ML AMPUL.NEB NEB SCH ×4 (00:37→19:34)
[2018-08-17 04:20] VITALS: BP 104/71
[2018-08-17] MEDS: MAGNESIUM HYDROXIDE 30 ML UDC GT PRN (05:00)
[2018-08-17] MEDS: SUCRALFATE 1 G/10 ML UDC GT SCH ×4 (06:06→20:30)
[2018-08-17 08:05] VITALS: BP 120/74
[2018-08-17] MEDS: HYDROGEN PEROXIDE 480 ML BOTTLE TP SCH ×2 (09:00→21:46)
[2018-08-17] MEDS: ACIDOPHILUS/BULGARICUS 1 EACH TAB.CHEW GT SCH ×3 (09:38→17:35)
[2018-08-17] MEDS: ESCITALOPRAM OXALATE (10 MG) 10 MG TABLET GT SCH (09:38)
[2018-08-17] MEDS: BACLOFEN (10 MG) 10 MG TABLET GT SCH ×4 (09:38→21:42)
[2018-08-17] MEDS: GABAPENTIN 250 MG/5 ML GT SCH ×3 (09:38→17:35)
[2018-08-17] MEDS: FAMOTIDINE (20 MG) 20 MG TABLET GT SCH ×2 (09:39→21:43)
[2018-08-17] MEDS: METHADONE HCL 10 MG TABLET GT SCH (09:39)
[2018-08-17] MEDS: CALCITRIOL 0.25 MCG CAPSULE PO SCH (09:39)
[2018-08-17] MEDS: HYDROCODONE/APAP 5/325MG 1 EACH TABLET GT SCH ×2 (09:39→21:43)
[2018-08-17] MEDS: CALCIUM CARBONATE 500 MG TAB.CHEW GT SCH ×3 (09:39→17:35)
[2018-08-17] MEDS: ASCORBIC ACID 500 MG TABLET GT SCH ×2 (09:39→17:35)
[2018-08-17] MEDS: PROSTAT (PYXIS) 30 ML UDC GT SCH ×3 (09:39→17:35)
[2018-08-17] MEDS: MULTIVIT W/MINERALS 1 TAB TABLET GT SCH (09:39)
[2018-08-17] MEDS: DAKINS HALF STRENGTH (0.25%) 480 ML BOTTLE TOP SCH ×2 (10:10→21:45)
[2018-08-17] MEDS: DAKINS QUARTER STRENGTH (0.125%) 480 ML BOTTLE TOP SCH ×2 (10:10→21:45)
[2018-08-17] MEDS: HYDROGEL DRESSING 90 GM TUBE TP SCH ×4 (10:10→21:46)
[2018-08-17 19:31] VITALS: BP 95/67
--- NOTE | 2018-08-17 20:30 | NUR ---
RT NOTE PATIENT RECEIVED TRACHED ON COOL AEROSOL. PLACED PATIENT ON MECHANICAL VENTILATOR PER NOC ORDER. AMBU BAG/BACK UP TRACH @ BEDSIDE. TX GIVEN, NO ADVERSE REACTIONS NOTED. SX DONE, TRACH SECURED AND PATENT. ALARMS ON AND AUDIBLE. PATIENT STABLE, WILL CONTINUE TO MONITOR. Addendum: 08/17/18 at 2031 by VERNELL CHRISTINE RT Amended: Links added.
[2018-08-17] MEDS: ZINC SULFATE 220 MG CAPSULE GT SCH (21:43)
[2018-08-17] MEDS: ENOXAPARIN SODIUM 40 MG/0.4 ML DISP.SYRIN SQ SCH (21:45)
[2018-08-17] MEDS: ATORVASTATIN 10 MG TABLET GT SCH (21:46)
[2018-08-17] MEDS: POLYETHYLENE GLYCOL 3350 17 GM POWD.PACK GT SCH (21:46)
[2018-08-18] MEDS: IPRATROPIUM NEB FS 0.5 MG/2.5 ML AMPUL.NEB NEB SCH ×4 (01:34→19:21)
[2018-08-18] MEDS: SUCRALFATE 1 G/10 ML UDC GT SCH ×4 (05:42→20:51)
[2018-08-18 07:35] VITALS: BP 115/79
[2018-08-18] MEDS: BACLOFEN (10 MG) 10 MG TABLET GT SCH ×4 (09:35→20:52)
[2018-08-18] MEDS: GABAPENTIN 250 MG/5 ML GT SCH ×3 (09:35→17:50)
[2018-08-18] MEDS: METHADONE HCL 10 MG TABLET GT SCH (09:35)
[2018-08-18] MEDS: ESCITALOPRAM OXALATE (10 MG) 10 MG TABLET GT SCH (09:35)
[2018-08-18] MEDS: ACIDOPHILUS/BULGARICUS 1 EACH TAB.CHEW GT SCH ×3 (09:35→17:50)
[2018-08-18] MEDS: FAMOTIDINE (20 MG) 20 MG TABLET GT SCH ×2 (09:36→20:52)
[2018-08-18] MEDS: PROSTAT (PYXIS) 30 ML UDC GT SCH ×3 (09:36→17:50)
[2018-08-18] MEDS: HYDROCODONE/APAP 5/325MG 1 EACH TABLET GT SCH ×2 (09:36→21:39)
[2018-08-18] MEDS: ASCORBIC ACID 500 MG TABLET GT SCH ×2 (09:36→17:50)
[2018-08-18] MEDS: CALCITRIOL 0.25 MCG CAPSULE PO SCH (09:36)
[2018-08-18] MEDS: MULTIVIT W/MINERALS 1 TAB TABLET GT SCH (09:36)
[2018-08-18] MEDS: CALCIUM CARBONATE 500 MG TAB.CHEW GT SCH ×3 (09:36→17:50)
[2018-08-18] MEDS: HYDROGEL DRESSING 90 GM TUBE TP SCH ×4 (10:10→21:00)
[2018-08-18] MEDS: DAKINS QUARTER STRENGTH (0.125%) 480 ML BOTTLE TOP SCH (10:10)
[2018-08-18] MEDS: DAKINS HALF STRENGTH (0.25%) 480 ML BOTTLE TOP SCH (10:10)
[2018-08-18] MEDS: HYDROGEN PEROXIDE 480 ML BOTTLE TP SCH ×2 (11:12→21:24)
[2018-08-18 20:43] VITALS: BP 100/77
[2018-08-18] MEDS: ZINC SULFATE 220 MG CAPSULE GT SCH (20:52)
[2018-08-18] MEDS: ATORVASTATIN 10 MG TABLET GT SCH (20:53)
[2018-08-18] MEDS: POLYETHYLENE GLYCOL 3350 17 GM POWD.PACK GT SCH (20:53)
[2018-08-18] MEDS: ENOXAPARIN SODIUM 40 MG/0.4 ML DISP.SYRIN SQ SCH (21:01)
[2018-08-19] MEDS: IPRATROPIUM NEB FS 0.5 MG/2.5 ML AMPUL.NEB NEB SCH ×4 (01:20→19:19)
--- NOTE | 2018-08-19 02:52 | NUR ---
RT NOTES TRACH TUBE IN PLACE, PATENT, AND SECURED WITH TRACH TIE. PLACED ON VENT WITH ORDERED SETTINGS FOR NOC PER MD ORDERS. TOLERATE WELL. ALARMS ON AND AUDIBLE. VENT PLUGGED IN TO RED OUTLET. BACK UP TRACH AND AMBU BAG BY THE BEDSIDE. NO SIGNS OF ANY DISTRESS. Addendum: 08/19/18 at 0253 by JERONIMO YOUNG RT Amended: Links added.
[2018-08-19] MEDS: SUCRALFATE 1 G/10 ML UDC GT SCH ×4 (05:11→20:30)
[2018-08-19 07:42] VITALS: BP 114/64
[2018-08-19] MEDS: PROSTAT (PYXIS) 30 ML UDC GT SCH ×3 (09:24→17:16)
[2018-08-19] MEDS: ACIDOPHILUS/BULGARICUS 1 EACH TAB.CHEW GT SCH ×3 (09:24→17:16)
[2018-08-19] MEDS: ESCITALOPRAM OXALATE (10 MG) 10 MG TABLET GT SCH (09:24)
[2018-08-19] MEDS: MULTIVIT W/MINERALS 1 TAB TABLET GT SCH (09:24)
[2018-08-19] MEDS: GABAPENTIN 250 MG/5 ML GT SCH ×3 (09:24→17:15)
[2018-08-19] MEDS: FAMOTIDINE (20 MG) 20 MG TABLET GT SCH ×2 (09:24→21:45)
[2018-08-19] MEDS: BACLOFEN (10 MG) 10 MG TABLET GT SCH ×4 (09:24→21:44)
[2018-08-19] MEDS: METHADONE HCL 10 MG TABLET GT SCH (09:24)
[2018-08-19] MEDS: CALCIUM CARBONATE 500 MG TAB.CHEW GT SCH ×3 (09:25→17:16)
[2018-08-19] MEDS: ASCORBIC ACID 500 MG TABLET GT SCH ×2 (09:25→17:16)
[2018-08-19] MEDS: CALCITRIOL 0.25 MCG CAPSULE PO SCH (09:25)
[2018-08-19] MEDS: HYDROGEL DRESSING 90 GM TUBE TP SCH ×4 (11:00→21:46)
[2018-08-19] MEDS: HYDROCODONE/APAP 5/325MG 1 EACH TABLET GT SCH ×2 (11:00→21:49)
[2018-08-19] MEDS: HYDROGEN PEROXIDE 480 ML BOTTLE TP SCH ×2 (11:00→21:46)
--- NOTE | 2018-08-19 13:00 | NUR ---
Seen and examined by Dr. Seaman, no new order given.
[2018-08-19 20:08] VITALS: BP 117/76
[2018-08-19] MEDS: ZINC SULFATE 220 MG CAPSULE GT SCH (21:45)
[2018-08-19] MEDS: ENOXAPARIN SODIUM 40 MG/0.4 ML DISP.SYRIN SQ SCH (21:46)
[2018-08-19] MEDS: POLYETHYLENE GLYCOL 3350 17 GM POWD.PACK GT SCH (21:47)
[2018-08-19] MEDS: ATORVASTATIN 10 MG TABLET GT SCH (21:47)
[2018-08-20] MEDS: IPRATROPIUM NEB FS 0.5 MG/2.5 ML AMPUL.NEB NEB SCH ×4 (01:19→20:16)
--- NOTE | 2018-08-20 02:01 | NUR ---
RT NOTES TRACH TUBE IN PLACE, PATENT, AND SECURED WITH TRACH TIE. PLACED ON VENT WITH ORDERED SETTINGS AT 1900 PER MD ORDERS. TOLERATE WELL. REFUSED BOTH TX. ALARMS ON AND AUDIBLE. VENT PLUGGED IN TO RED OUTLET. BACK UP TRACH AND AMBU BAG BY THE BEDSIDE. NO SIGNS OF ANY DISTRESS. WILL CONTINUE TO MONITOR. Addendum: 08/20/18 at 0202 by JERONIMO YOUNG RT Amended: Links added.
[2018-08-20] MEDS: SUCRALFATE 1 G/10 ML UDC GT SCH ×4 (06:48→21:07)
[2018-08-20 08:00] VITALS: BP 119/78
[2018-08-20] MEDS: BACLOFEN (10 MG) 10 MG TABLET GT SCH ×4 (08:36→21:07)
[2018-08-20] MEDS: GABAPENTIN 250 MG/5 ML GT SCH ×3 (08:36→16:39)
[2018-08-20] MEDS: ACIDOPHILUS/BULGARICUS 1 EACH TAB.CHEW GT SCH ×3 (08:36→16:39)
[2018-08-20] MEDS: ESCITALOPRAM OXALATE (10 MG) 10 MG TABLET GT SCH (08:36)
[2018-08-20] MEDS: METHADONE HCL 10 MG TABLET GT SCH (08:37)
[2018-08-20] MEDS: CALCIUM CARBONATE 500 MG TAB.CHEW GT SCH ×3 (08:38→16:39)
[2018-08-20] MEDS: ASCORBIC ACID 500 MG TABLET GT SCH ×2 (08:38→16:39)
[2018-08-20] MEDS: CALCITRIOL 0.25 MCG CAPSULE PO SCH (08:38)
[2018-08-20] MEDS: FAMOTIDINE (20 MG) 20 MG TABLET GT SCH ×2 (08:38→21:08)
[2018-08-20] MEDS: PROSTAT (PYXIS) 30 ML UDC GT SCH ×3 (08:38→16:39)
[2018-08-20] MEDS: MULTIVIT W/MINERALS 1 TAB TABLET GT SCH (08:38)
[2018-08-20] MEDS: HYDROGEN PEROXIDE 480 ML BOTTLE TP SCH ×2 (09:00→21:09)
[2018-08-20] MEDS: HYDROCODONE/APAP 5/325MG 1 EACH TABLET GT SCH ×2 (10:30→21:07)
[2018-08-20] MEDS: HYDROGEL DRESSING 90 GM TUBE TP SCH ×4 (11:30→21:09)
[2018-08-20 20:04] VITALS: BP 108/68
[2018-08-20] MEDS: ZINC SULFATE 220 MG CAPSULE GT SCH (21:08)
[2018-08-20] MEDS: DAKINS QUARTER STRENGTH (0.125%) 480 ML BOTTLE TOP SCH ×2 (21:08)
[2018-08-20] MEDS: ENOXAPARIN SODIUM 40 MG/0.4 ML DISP.SYRIN SQ SCH (21:08)
[2018-08-20] MEDS: POLYETHYLENE GLYCOL 3350 17 GM POWD.PACK GT SCH (21:09)
[2018-08-20] MEDS: ATORVASTATIN 10 MG TABLET GT SCH (21:09)
[2018-08-21] MEDS: IPRATROPIUM NEB FS 0.5 MG/2.5 ML AMPUL.NEB NEB SCH ×4 (02:27→19:31)
[2018-08-21] MEDS: SUCRALFATE 1 G/10 ML UDC GT SCH ×4 (06:16→21:07)
[2018-08-21 08:00] VITALS: BP 116/73
[2018-08-21] MEDS: FAMOTIDINE (20 MG) 20 MG TABLET GT SCH ×2 (09:00→21:08)
[2018-08-21] MEDS: ACIDOPHILUS/BULGARICUS 1 EACH TAB.CHEW GT SCH ×3 (09:00→16:56)
[2018-08-21] MEDS: CALCITRIOL 0.25 MCG CAPSULE PO SCH (09:00)
[2018-08-21] MEDS: CALCIUM CARBONATE 500 MG TAB.CHEW GT SCH ×3 (09:00→16:56)
[2018-08-21] MEDS: ESCITALOPRAM OXALATE (10 MG) 10 MG TABLET GT SCH (09:00)
[2018-08-21] MEDS: BACLOFEN (10 MG) 10 MG TABLET GT SCH ×4 (09:00→21:07)
[2018-08-21] MEDS: METHADONE HCL 10 MG TABLET GT SCH (09:00)
[2018-08-21] MEDS: GABAPENTIN 250 MG/5 ML GT SCH ×3 (09:00→16:56)
[2018-08-21] MEDS: ASCORBIC ACID 500 MG TABLET GT SCH ×2 (09:00→16:56)
[2018-08-21] MEDS: MULTIVIT W/MINERALS 1 TAB TABLET GT SCH (09:00)
[2018-08-21] MEDS: PROSTAT (PYXIS) 30 ML UDC GT SCH ×3 (09:00→16:56)
[2018-08-21] MEDS: HYDROCODONE/APAP 5/325MG 1 EACH TABLET GT SCH ×2 (11:19→21:08)
[2018-08-21] MEDS: HYDROGEL DRESSING 90 GM TUBE TP SCH ×4 (12:00→21:09)
[2018-08-21] MEDS: DAKINS QUARTER STRENGTH (0.125%) 480 ML BOTTLE TOP SCH ×4 (12:00→21:09)
[2018-08-21] MEDS: HYDROGEN PEROXIDE 480 ML BOTTLE TP SCH ×2 (14:40→21:09)
[2018-08-21 20:27] VITALS: BP 90/60
[2018-08-21] MEDS: ZINC SULFATE 220 MG CAPSULE GT SCH (21:08)
[2018-08-21] MEDS: POLYETHYLENE GLYCOL 3350 17 GM POWD.PACK GT SCH (21:09)
[2018-08-21] MEDS: ENOXAPARIN SODIUM 40 MG/0.4 ML DISP.SYRIN SQ SCH (21:09)
[2018-08-21] MEDS: ATORVASTATIN 10 MG TABLET GT SCH (21:09)
[2018-08-22] MEDS: IPRATROPIUM NEB FS 0.5 MG/2.5 ML AMPUL.NEB NEB SCH ×4 (01:30→19:23)
[2018-08-22] MEDS: SUCRALFATE 1 G/10 ML UDC GT SCH ×4 (05:49→20:49)
[2018-08-22] MEDS: HYDROGEN PEROXIDE 480 ML BOTTLE TP SCH ×2 (07:56→20:51)
[2018-08-22 07:59] VITALS: BP 115/63
[2018-08-22] MEDS: ACIDOPHILUS/BULGARICUS 1 EACH TAB.CHEW GT SCH ×3 (08:41→16:34)
[2018-08-22] MEDS: BACLOFEN (10 MG) 10 MG TABLET GT SCH ×4 (08:41→20:49)
[2018-08-22] MEDS: ESCITALOPRAM OXALATE (10 MG) 10 MG TABLET GT SCH (08:41)
[2018-08-22] MEDS: GABAPENTIN 250 MG/5 ML GT SCH ×3 (08:41→16:34)
[2018-08-22] MEDS: METHADONE HCL 10 MG TABLET GT SCH (08:41)
[2018-08-22] MEDS: MULTIVIT W/MINERALS 1 TAB TABLET GT SCH (08:42)
[2018-08-22] MEDS: ASCORBIC ACID 500 MG TABLET GT SCH ×2 (08:42→16:34)
[2018-08-22] MEDS: CALCIUM CARBONATE 500 MG TAB.CHEW GT SCH ×3 (08:42→16:34)
[2018-08-22] MEDS: PROSTAT (PYXIS) 30 ML UDC GT SCH ×3 (08:42→16:34)
[2018-08-22] MEDS: FAMOTIDINE (20 MG) 20 MG TABLET GT SCH ×2 (08:42→20:50)
[2018-08-22] MEDS: CALCITRIOL 0.25 MCG CAPSULE PO SCH (08:42)
[2018-08-22] MEDS: HYDROCODONE/APAP 5/325MG 1 EACH TABLET GT SCH ×2 (12:54→20:50)
[2018-08-22] MEDS: DAKINS QUARTER STRENGTH (0.125%) 480 ML BOTTLE TOP SCH ×4 (13:54→20:50)
[2018-08-22] MEDS: HYDROGEL DRESSING 90 GM TUBE TP SCH ×4 (13:54→20:50)
--- NOTE | 2018-08-22 17:39 | NUR ---
RT NOTE: RECEIVED PT ON NOTED VENT SETTINGS. PLACED PT ON 28% C/A PER QDAY ORDER. TERRANCE WELL. NO RESPIRATORY DISTRESS NOTED. TRACH CHECKED SECURE AND PATENT. SXD AND LAVAGED Q ROUND AND NEEDED. TXS GIVEN ORDERED WITH NO ADVERSE REACTIONS NOTED. SPARE TRACH AND AMBU BAG @ BEDSIDE. ALARMS CHECKED ON AND AUDIBLE. Addendum: 08/22/18 at 1739 by LAILA JON RT Amended: Links added.
[2018-08-22 19:56] VITALS: BP 115/74
[2018-08-22] MEDS: ENOXAPARIN SODIUM 40 MG/0.4 ML DISP.SYRIN SQ SCH (20:50)
[2018-08-22] MEDS: ZINC SULFATE 220 MG CAPSULE GT SCH (20:50)
[2018-08-22] MEDS: POLYETHYLENE GLYCOL 3350 17 GM POWD.PACK GT SCH (21:05)
[2018-08-22] MEDS: ATORVASTATIN 10 MG TABLET GT SCH (21:05)
[2018-08-23] MEDS: IPRATROPIUM NEB FS 0.5 MG/2.5 ML AMPUL.NEB NEB SCH ×4 (01:03→19:28)
--- NOTE | 2018-08-23 02:58 | NUR ---
RT NOTE PT RECEIVED ON AEROSOL 28% 5L, THEN PLACED ON MECH VENT ON THE NOTED SETTINGS. PT SX'D, MOD THICK YELLOW SECRETIONS NOTED. VENT ALARMS ARE ON AND AUDIBLE, PLUGGED INTO RED OUTLET. AMBU BAG AND SPARE TRACH ARE AT BEDSIDE. MEDS ARE NOT AVAILABLE, BUT THEY ARE ORDERED AND WILL BE HERE IN THE AM. WILL CONT TO MONITOR PT THROUGH OUT THE NIGHT.
[2018-08-23] MEDS: SUCRALFATE 1 G/10 ML UDC GT SCH ×4 (05:31→21:04)
[2018-08-23] MEDS: HYDROGEN PEROXIDE 480 ML BOTTLE TP SCH ×2 (07:35→20:12)
[2018-08-23 08:06] VITALS: BP 129/76
[2018-08-23] MEDS: CALCIUM CARBONATE 500 MG TAB.CHEW GT SCH ×3 (08:59→17:59)
[2018-08-23] MEDS: FAMOTIDINE (20 MG) 20 MG TABLET GT SCH ×2 (08:59→21:05)
[2018-08-23] MEDS: MULTIVIT W/MINERALS 1 TAB TABLET GT SCH (08:59)
[2018-08-23] MEDS: ESCITALOPRAM OXALATE (10 MG) 10 MG TABLET GT SCH (08:59)
[2018-08-23] MEDS: ASCORBIC ACID 500 MG TABLET GT SCH ×2 (08:59→17:59)
[2018-08-23] MEDS: ACIDOPHILUS/BULGARICUS 1 EACH TAB.CHEW GT SCH ×3 (08:59→17:56)
[2018-08-23] MEDS: CALCITRIOL 0.25 MCG CAPSULE PO SCH (08:59)
[2018-08-23] MEDS: GABAPENTIN 250 MG/5 ML GT SCH ×3 (08:59→17:56)
[2018-08-23] MEDS: BACLOFEN (10 MG) 10 MG TABLET GT SCH ×4 (08:59→21:04)
[2018-08-23] MEDS: PROSTAT (PYXIS) 30 ML UDC GT SCH ×3 (08:59→17:59)
[2018-08-23] MEDS: METHADONE HCL 10 MG TABLET GT SCH (09:00)
[2018-08-23] MEDS: HYDROCODONE/APAP 5/325MG 1 EACH TABLET GT SCH ×2 (10:05→21:05)
[2018-08-23] MEDS: DAKINS QUARTER STRENGTH (0.125%) 480 ML BOTTLE TOP SCH ×4 (10:40→21:05)
[2018-08-23] MEDS: HYDROGEL DRESSING 90 GM TUBE TP SCH ×4 (10:40→21:05)
[2018-08-23 20:44] VITALS: BP 105/65
[2018-08-23] MEDS: ENOXAPARIN SODIUM 40 MG/0.4 ML DISP.SYRIN SQ SCH (21:05)
[2018-08-23] MEDS: ZINC SULFATE 220 MG CAPSULE GT SCH (21:05)
[2018-08-23] MEDS: ATORVASTATIN 10 MG TABLET GT SCH (21:05)
[2018-08-23] MEDS: POLYETHYLENE GLYCOL 3350 17 GM POWD.PACK GT SCH (21:05)
[2018-08-24] MEDS: IPRATROPIUM NEB FS 0.5 MG/2.5 ML AMPUL.NEB NEB SCH ×4 (00:30→19:24)
[2018-08-24] MEDS: METHOCARBAMOL (750MG) 750 MG TABLET GT PRN (04:45)
[2018-08-24] MEDS: MAGNESIUM HYDROXIDE 30 ML UDC GT PRN (04:45)
[2018-08-24] MEDS: SUCRALFATE 1 G/10 ML UDC GT SCH ×4 (05:36→21:17)
[2018-08-24 07:51] VITALS: BP 125/67
[2018-08-24] MEDS: HYDROGEN PEROXIDE 480 ML BOTTLE TP SCH ×2 (09:00→21:16)
[2018-08-24] MEDS: CALCIUM CARBONATE 500 MG TAB.CHEW GT SCH ×3 (09:07→17:50)
[2018-08-24] MEDS: MULTIVIT W/MINERALS 1 TAB TABLET GT SCH (09:07)
[2018-08-24] MEDS: METHADONE HCL 10 MG TABLET GT SCH (09:07)
[2018-08-24] MEDS: BACLOFEN (10 MG) 10 MG TABLET GT SCH ×4 (09:07→21:17)
[2018-08-24] MEDS: GABAPENTIN 250 MG/5 ML GT SCH ×3 (09:07→17:50)
[2018-08-24] MEDS: ASCORBIC ACID 500 MG TABLET GT SCH ×2 (09:07→17:50)
[2018-08-24] MEDS: FAMOTIDINE (20 MG) 20 MG TABLET GT SCH ×2 (09:07→21:16)
[2018-08-24] MEDS: PROSTAT (PYXIS) 30 ML UDC GT SCH ×3 (09:07→17:50)
[2018-08-24] MEDS: ESCITALOPRAM OXALATE (10 MG) 10 MG TABLET GT SCH (09:07)
[2018-08-24] MEDS: ACIDOPHILUS/BULGARICUS 1 EACH TAB.CHEW GT SCH ×3 (09:07→17:50)
[2018-08-24] MEDS: CALCITRIOL 0.25 MCG CAPSULE PO SCH (09:08)
[2018-08-24] MEDS: HYDROCODONE/APAP 5/325MG 1 EACH TABLET GT SCH ×2 (10:00→21:17)
[2018-08-24] MEDS: DAKINS QUARTER STRENGTH (0.125%) 480 ML BOTTLE TOP SCH ×4 (10:30→21:16)
[2018-08-24] MEDS: HYDROGEL DRESSING 90 GM TUBE TP SCH ×4 (10:30→21:16)
[2018-08-24] MEDS: HYDROCODONE/APAP 5/325MG 1 EACH TABLET GT PRN (18:52)
[2018-08-24 19:59] VITALS: BP 106/67
[2018-08-24] MEDS: POLYETHYLENE GLYCOL 3350 17 GM POWD.PACK GT SCH (21:15)
[2018-08-24] MEDS: ZINC SULFATE 220 MG CAPSULE GT SCH (21:16)
[2018-08-24] MEDS: CADEXOMER IODINE 40 GM TUBE TP SCH (21:16)
[2018-08-24] MEDS: ATORVASTATIN 10 MG TABLET GT SCH (21:16)
[2018-08-24] MEDS: ENOXAPARIN SODIUM 40 MG/0.4 ML DISP.SYRIN SQ SCH (21:19)
[2018-08-25] MEDS: HYDROCODONE/APAP 5/325MG 1 EACH TABLET GT PRN ×2 (00:39→06:32)
[2018-08-25] MEDS: IPRATROPIUM NEB FS 0.5 MG/2.5 ML AMPUL.NEB NEB SCH ×4 (01:23→20:13)
[2018-08-25] MEDS: METHOCARBAMOL (750MG) 750 MG TABLET GT PRN (02:32)
[2018-08-25] MEDS: SUCRALFATE 1 G/10 ML UDC GT SCH ×4 (06:15→20:30)
[2018-08-25 07:34] VITALS: BP 119/65
[2018-08-25] MEDS: BACLOFEN (10 MG) 10 MG TABLET GT SCH ×4 (09:00→21:00)
[2018-08-25] MEDS: CALCIUM CARBONATE 500 MG TAB.CHEW GT SCH ×3 (09:00→16:32)
[2018-08-25] MEDS: FAMOTIDINE (20 MG) 20 MG TABLET GT SCH ×2 (09:00→21:00)
[2018-08-25] MEDS: PROSTAT (PYXIS) 30 ML UDC GT SCH ×3 (09:00→16:32)
[2018-08-25] MEDS: ESCITALOPRAM OXALATE (10 MG) 10 MG TABLET GT SCH (09:00)
[2018-08-25] MEDS: GABAPENTIN 250 MG/5 ML GT SCH ×3 (09:00→16:31)
[2018-08-25] MEDS: HYDROGEL DRESSING 90 GM TUBE TP SCH ×4 (09:00→21:00)
[2018-08-25] MEDS: HYDROCODONE/APAP 5/325MG 1 EACH TABLET GT SCH ×2 (09:00→21:00)
[2018-08-25] MEDS: METHADONE HCL 10 MG TABLET GT SCH (09:00)
[2018-08-25] MEDS: CALCITRIOL 0.25 MCG CAPSULE PO SCH (09:00)
[2018-08-25] MEDS: MULTIVIT W/MINERALS 1 TAB TABLET GT SCH (09:00)
[2018-08-25] MEDS: ASCORBIC ACID 500 MG TABLET GT SCH ×2 (09:00→16:40)
[2018-08-25] MEDS: DAKINS QUARTER STRENGTH (0.125%) 480 ML BOTTLE TOP SCH ×4 (09:00→21:00)
[2018-08-25] MEDS: CADEXOMER IODINE 40 GM TUBE TP SCH ×2 (09:00→21:00)
[2018-08-25] MEDS: ACIDOPHILUS/BULGARICUS 1 EACH TAB.CHEW GT SCH ×3 (09:00→16:31)
[2018-08-25] MEDS: HYDROGEN PEROXIDE 480 ML BOTTLE TP SCH ×2 (09:34→21:00)
[2018-08-25 19:50] VITALS: BP 109/61
[2018-08-25] MEDS: ZINC SULFATE 220 MG CAPSULE GT SCH (21:00)
[2018-08-25] MEDS: ENOXAPARIN SODIUM 40 MG/0.4 ML DISP.SYRIN SQ SCH (21:00)
[2018-08-25] MEDS: POLYETHYLENE GLYCOL 3350 17 GM POWD.PACK GT SCH (22:02)
[2018-08-25] MEDS: ATORVASTATIN 10 MG TABLET GT SCH (22:02)
[2018-08-26] MEDS: IPRATROPIUM NEB FS 0.5 MG/2.5 ML AMPUL.NEB NEB SCH ×4 (02:00→19:15)
--- NOTE | 2018-08-26 04:55 | NUR ---
PT REC'D TRACHED ON COOL AEROSOL, PT PLACED ON MECH VENT ON AC MODE @ 2012 PER MD ORDERS, NO RESP DISTRESS OR SOB NOTED. PT AWAKE AND ALERT. TRACH PATENT AND SECURED. PT SX'D FOR THICK MOD AMT OF PALE YELLOW SECRETIONS. ALARMS ARE SET AND AUDIBLE. VENT PLUGGED INTO RED OUTLET. AMBU BAG BEDSIDE. Addendum: 08/26/18 at 0458 by CAITLIN SOTO RT Amended: Links added.
[2018-08-26] MEDS: SUCRALFATE 1 G/10 ML UDC GT SCH ×4 (06:38→20:30)
[2018-08-26] MEDS: MAGNESIUM HYDROXIDE 30 ML UDC GT PRN (07:05)
[2018-08-26 08:04] VITALS: BP 126/67
[2018-08-26] MEDS: GABAPENTIN 250 MG/5 ML GT SCH ×3 (08:58→17:39)
[2018-08-26] MEDS: ACIDOPHILUS/BULGARICUS 1 EACH TAB.CHEW GT SCH ×3 (08:58→17:39)
[2018-08-26] MEDS: ESCITALOPRAM OXALATE (10 MG) 10 MG TABLET GT SCH (08:59)
[2018-08-26] MEDS: BACLOFEN (10 MG) 10 MG TABLET GT SCH ×4 (08:59→21:36)
[2018-08-26] MEDS: FAMOTIDINE (20 MG) 20 MG TABLET GT SCH ×2 (09:00→21:36)
[2018-08-26] MEDS: HYDROGEN PEROXIDE 480 ML BOTTLE TP SCH ×2 (09:00→21:00)
[2018-08-26] MEDS: HYDROGEL DRESSING 90 GM TUBE TP SCH ×4 (09:00→21:38)
[2018-08-26] MEDS: DAKINS QUARTER STRENGTH (0.125%) 480 ML BOTTLE TOP SCH ×4 (09:00→21:38)
[2018-08-26] MEDS: CADEXOMER IODINE 40 GM TUBE TP SCH ×2 (09:00→21:38)
[2018-08-26] MEDS: CALCIUM CARBONATE 500 MG TAB.CHEW GT SCH ×3 (09:00→17:39)
[2018-08-26] MEDS: PROSTAT (PYXIS) 30 ML UDC GT SCH ×3 (09:00→17:39)
[2018-08-26] MEDS: ASCORBIC ACID 500 MG TABLET GT SCH ×2 (09:00→17:39)
[2018-08-26] MEDS: METHADONE HCL 10 MG TABLET GT SCH (09:00)
[2018-08-26] MEDS: CALCITRIOL 0.25 MCG CAPSULE PO SCH (09:00)
[2018-08-26] MEDS: MULTIVIT W/MINERALS 1 TAB TABLET GT SCH (09:11)
[2018-08-26] MEDS: HYDROCODONE/APAP 5/325MG 1 EACH TABLET GT SCH ×2 (09:39→21:36)
[2018-08-26 21:22] VITALS: BP 119/75
[2018-08-26] MEDS: ZINC SULFATE 220 MG CAPSULE GT SCH (21:36)
[2018-08-26] MEDS: ENOXAPARIN SODIUM 40 MG/0.4 ML DISP.SYRIN SQ SCH (21:37)
[2018-08-26] MEDS: POLYETHYLENE GLYCOL 3350 17 GM POWD.PACK GT SCH (21:38)
[2018-08-26] MEDS: ATORVASTATIN 10 MG TABLET GT SCH (21:38)
[2018-08-27] MEDS: IPRATROPIUM NEB FS 0.5 MG/2.5 ML AMPUL.NEB NEB SCH ×4 (00:57→19:06)
[2018-08-27] MEDS: HYDROCODONE/APAP 5/325MG 1 EACH TABLET GT PRN (03:00)
[2018-08-27] MEDS: SUCRALFATE 1 G/10 ML UDC GT SCH ×4 (06:39→20:56)
[2018-08-27 07:49] VITALS: BP 126/68
[2018-08-27] MEDS: HYDROGEN PEROXIDE 480 ML BOTTLE TP SCH ×2 (09:00→20:52)
[2018-08-27] MEDS: BACLOFEN (10 MG) 10 MG TABLET GT SCH ×4 (09:52→20:56)
[2018-08-27] MEDS: ACIDOPHILUS/BULGARICUS 1 EACH TAB.CHEW GT SCH ×3 (09:52→16:55)
[2018-08-27] MEDS: ESCITALOPRAM OXALATE (10 MG) 10 MG TABLET GT SCH (09:52)
[2018-08-27] MEDS: GABAPENTIN 250 MG/5 ML GT SCH ×3 (09:52→16:55)
[2018-08-27] MEDS: MULTIVIT W/MINERALS 1 TAB TABLET GT SCH (09:53)
[2018-08-27] MEDS: CALCITRIOL 0.25 MCG CAPSULE PO SCH (09:53)
[2018-08-27] MEDS: FAMOTIDINE (20 MG) 20 MG TABLET GT SCH ×2 (09:53→20:57)
[2018-08-27] MEDS: ASCORBIC ACID 500 MG TABLET GT SCH ×2 (09:53→16:55)
[2018-08-27] MEDS: CALCIUM CARBONATE 500 MG TAB.CHEW GT SCH ×3 (09:53→16:55)
[2018-08-27] MEDS: METHADONE HCL 10 MG TABLET GT SCH (09:53)
[2018-08-27] MEDS: PROSTAT (PYXIS) 30 ML UDC GT SCH ×3 (09:53→16:55)
[2018-08-27] MEDS: HYDROCODONE/APAP 5/325MG 1 EACH TABLET GT SCH ×2 (10:30→20:57)
[2018-08-27] MEDS: DAKINS QUARTER STRENGTH (0.125%) 480 ML BOTTLE TOP SCH ×4 (11:00→21:47)
[2018-08-27] MEDS: HYDROGEL DRESSING 90 GM TUBE TP SCH ×4 (11:00→21:47)
[2018-08-27] MEDS: CADEXOMER IODINE 40 GM TUBE TP SCH ×2 (11:00→21:47)
--- NOTE | 2018-08-27 17:26 | NUR ---
RT NOTE PT REMAINS ON COOL AEROSOL PRESCRIBED. NO DISTRESS NOTED. VENT AT BED SIDE. AMBU BAG AT BED SIDE. VENT PLUGGED IN TO RED OUTLET. Addendum: 08/27/18 at 1727 by KAJAL ARAIZA RT Amended: Links added.
--- NOTE | 2018-08-27 20:00 | NUR ---
RN NOTES Seen by Peggy Hoffman NP, with no new orders.
[2018-08-27 20:36] VITALS: BP 120/48
[2018-08-27] MEDS: ZINC SULFATE 220 MG CAPSULE GT SCH (20:57)
[2018-08-27] MEDS: ENOXAPARIN SODIUM 40 MG/0.4 ML DISP.SYRIN SQ SCH (20:57)
[2018-08-27] MEDS: POLYETHYLENE GLYCOL 3350 17 GM POWD.PACK GT SCH (21:47)
[2018-08-27] MEDS: ATORVASTATIN 10 MG TABLET GT SCH (21:47)
[2018-08-28] MEDS: IPRATROPIUM NEB FS 0.5 MG/2.5 ML AMPUL.NEB NEB SCH ×4 (01:06→19:44)
[2018-08-28] MEDS: SUCRALFATE 1 G/10 ML UDC GT SCH ×4 (05:48→20:27)
[2018-08-28 07:40] VITALS: BP 113/74
[2018-08-28] MEDS: ACIDOPHILUS/BULGARICUS 1 EACH TAB.CHEW GT SCH ×3 (08:53→17:21)
[2018-08-28] MEDS: BACLOFEN (10 MG) 10 MG TABLET GT SCH ×4 (08:53→21:07)
[2018-08-28] MEDS: ESCITALOPRAM OXALATE (10 MG) 10 MG TABLET GT SCH (08:53)
[2018-08-28] MEDS: GABAPENTIN 250 MG/5 ML GT SCH ×3 (08:53→17:21)
[2018-08-28] MEDS: PROSTAT (PYXIS) 30 ML UDC GT SCH ×3 (08:54→17:21)
[2018-08-28] MEDS: MULTIVIT W/MINERALS 1 TAB TABLET GT SCH (08:54)
[2018-08-28] MEDS: METHADONE HCL 10 MG TABLET GT SCH (08:54)
[2018-08-28] MEDS: FAMOTIDINE (20 MG) 20 MG TABLET GT SCH ×2 (08:54→21:08)
[2018-08-28] MEDS: CALCITRIOL 0.25 MCG CAPSULE PO SCH (08:54)
[2018-08-28] MEDS: ASCORBIC ACID 500 MG TABLET GT SCH ×2 (08:54→17:22)
[2018-08-28] MEDS: CALCIUM CARBONATE 500 MG TAB.CHEW GT SCH ×3 (08:54→17:21)
[2018-08-28] MEDS: HYDROGEN PEROXIDE 480 ML BOTTLE TP SCH ×2 (09:00→21:08)
[2018-08-28] MEDS: HYDROCODONE/APAP 5/325MG 1 EACH TABLET GT SCH ×2 (09:30→21:08)
[2018-08-28] MEDS: DAKINS QUARTER STRENGTH (0.125%) 480 ML BOTTLE TOP SCH ×4 (10:00→21:08)
[2018-08-28] MEDS: CADEXOMER IODINE 40 GM TUBE TP SCH ×2 (10:00→21:09)
[2018-08-28] MEDS: HYDROGEL DRESSING 90 GM TUBE TP SCH ×4 (10:00→21:08)
--- NOTE | 2018-08-28 15:09 | NUR ---
pt refused trach care, told RT to "get out". importance of trach care explained to pt, multiple attempts made, but pt continued to refuse Addendum: 08/28/18 at 1509 by CORAZON DIALLO RT Amended: Links added.
[2018-08-28 20:46] VITALS: BP 100/58
[2018-08-28] MEDS: ENOXAPARIN SODIUM 40 MG/0.4 ML DISP.SYRIN SQ SCH (21:00)
[2018-08-28] MEDS: ZINC SULFATE 220 MG CAPSULE GT SCH (21:08)
[2018-08-28] MEDS: ATORVASTATIN 10 MG TABLET GT SCH (21:18)
[2018-08-28] MEDS: POLYETHYLENE GLYCOL 3350 17 GM POWD.PACK GT SCH (21:18)
[2018-08-29] MEDS: IPRATROPIUM NEB FS 0.5 MG/2.5 ML AMPUL.NEB NEB SCH ×4 (01:14→19:51)
[2018-08-29] MEDS: SUCRALFATE 1 G/10 ML UDC GT SCH ×4 (05:52→20:42)
[2018-08-29 07:54] VITALS: BP 116/72
[2018-08-29] MEDS: CADEXOMER IODINE 40 GM TUBE TP SCH ×2 (09:00→21:33)
[2018-08-29] MEDS: HYDROGEL DRESSING 90 GM TUBE TP SCH ×4 (09:00→21:32)
[2018-08-29] MEDS: DAKINS QUARTER STRENGTH (0.125%) 480 ML BOTTLE TOP SCH ×4 (09:00→21:32)
[2018-08-29] MEDS: GABAPENTIN 250 MG/5 ML GT SCH ×3 (09:04→17:00)
[2018-08-29] MEDS: HYDROCODONE/APAP 5/325MG 1 EACH TABLET GT SCH ×2 (09:05→20:42)
[2018-08-29] MEDS: ACIDOPHILUS/BULGARICUS 1 EACH TAB.CHEW GT SCH ×3 (09:05→17:00)
[2018-08-29] MEDS: PROSTAT (PYXIS) 30 ML UDC GT SCH ×3 (09:05→17:00)
[2018-08-29] MEDS: CALCITRIOL 0.25 MCG CAPSULE PO SCH (09:05)
[2018-08-29] MEDS: FAMOTIDINE (20 MG) 20 MG TABLET GT SCH ×2 (09:05→20:42)
[2018-08-29] MEDS: BACLOFEN (10 MG) 10 MG TABLET GT SCH ×4 (09:05→20:42)
[2018-08-29] MEDS: ESCITALOPRAM OXALATE (10 MG) 10 MG TABLET GT SCH (09:05)
[2018-08-29] MEDS: MULTIVIT W/MINERALS 1 TAB TABLET GT SCH (09:05)
[2018-08-29] MEDS: METHADONE HCL 10 MG TABLET GT SCH (09:05)
[2018-08-29] MEDS: CALCIUM CARBONATE 500 MG TAB.CHEW GT SCH ×3 (09:05→17:00)
[2018-08-29] MEDS: ASCORBIC ACID 500 MG TABLET GT SCH ×2 (09:05→17:00)
[2018-08-29] MEDS: HYDROGEN PEROXIDE 480 ML BOTTLE TP SCH ×2 (09:26→21:00)
--- NOTE | 2018-08-29 19:52 | NUR ---
PATIENT RECEIVED ON COOL AEROSOL. PLACED PATIENT ON MECHANICAL VENTILATION PER NOC ORDER. PT IS AWAKE AND ALERT. CUFF CHECKED VIA FOUNDRY MANAGER. AMBU BAG/BACK UP TRACH @ BEDSIDE. VENT PLUGGED INTO RED OUTLET. ALARMS ON AND AUDIBLE. TX GIVEN, NO ADVERSE REACTIONS NOTED. SX DONE, MODERATE THICK YELLOW SECRETIONS NOTED. PATIENT STABLE. WILL MONITOR.
[2018-08-29 20:08] VITALS: BP 122/72
[2018-08-29] MEDS: ZINC SULFATE 220 MG CAPSULE GT SCH (20:42)
[2018-08-29] MEDS: ENOXAPARIN SODIUM 40 MG/0.4 ML DISP.SYRIN SQ SCH (20:43)
[2018-08-29] MEDS: ATORVASTATIN 10 MG TABLET GT SCH (21:33)
[2018-08-29] MEDS: POLYETHYLENE GLYCOL 3350 17 GM POWD.PACK GT SCH (21:33)
[2018-08-30] MEDS: IPRATROPIUM NEB FS 0.5 MG/2.5 ML AMPUL.NEB NEB SCH ×4 (01:17→20:18)
[2018-08-30] MEDS: METHOCARBAMOL (750MG) 750 MG TABLET GT PRN (01:40)
[2018-08-30] MEDS: SUCRALFATE 1 G/10 ML UDC GT SCH ×4 (06:05→21:24)
[2018-08-30 07:35] VITALS: BP 141/74
[2018-08-30] MEDS: HYDROGEN PEROXIDE 480 ML BOTTLE TP SCH ×2 (08:13→21:00)
--- NOTE | 2018-08-30 08:25 | NUR ---
While performing trach care on Mr Marley, he started to curse and spit on me. I was unable to move away due to the trach tie being undone. I secured the trach, but he continually spat on me through the whole process. I went to the Charge Nurse (Priya) and told her what happened. Her only response was to ask me why I was doing his trach care at this time, showing no concern of my well being. This is an isolation patient. I called my diabetes clinical manager Janiya to notify her of the situation Addendum: 08/30/18 at 0909 by TEN MARTINEZ RT Amended: Links added.
[2018-08-30] MEDS: DAKINS QUARTER STRENGTH (0.125%) 480 ML BOTTLE TOP SCH ×4 (09:00→21:25)
[2018-08-30] MEDS: CADEXOMER IODINE 40 GM TUBE TP SCH ×2 (09:00→21:26)
[2018-08-30] MEDS: HYDROGEL DRESSING 90 GM TUBE TP SCH ×4 (09:00→21:26)
[2018-08-30] MEDS: ESCITALOPRAM OXALATE (10 MG) 10 MG TABLET GT SCH (09:37)
[2018-08-30] MEDS: GABAPENTIN 250 MG/5 ML GT SCH ×3 (09:37→16:51)
[2018-08-30] MEDS: ACIDOPHILUS/BULGARICUS 1 EACH TAB.CHEW GT SCH ×3 (09:37→16:51)
[2018-08-30] MEDS: BACLOFEN (10 MG) 10 MG TABLET GT SCH ×4 (09:37→21:24)
[2018-08-30] MEDS: CALCIUM CARBONATE 500 MG TAB.CHEW GT SCH ×3 (09:38→16:51)
[2018-08-30] MEDS: ASCORBIC ACID 500 MG TABLET GT SCH ×2 (09:38→16:51)
[2018-08-30] MEDS: CALCITRIOL 0.25 MCG CAPSULE PO SCH (09:38)
[2018-08-30] MEDS: MULTIVIT W/MINERALS 1 TAB TABLET GT SCH (09:38)
[2018-08-30] MEDS: FAMOTIDINE (20 MG) 20 MG TABLET GT SCH ×2 (09:38→21:24)
[2018-08-30] MEDS: METHADONE HCL 10 MG TABLET GT SCH (09:38)
[2018-08-30] MEDS: HYDROCODONE/APAP 5/325MG 1 EACH TABLET GT SCH ×2 (09:38→21:24)
[2018-08-30] MEDS: PROSTAT (PYXIS) 30 ML UDC GT SCH ×3 (09:38→16:51)
--- NOTE | 2018-08-30 10:20 | NUR ---
Around 824, RT at the nursing station heard him talking while washing his hand "I am not going to that room anymore" referring to the patient's room. When asked what happen , he said that patient spit on him while doing trach care. Informed RT that trach care is done after patient usually have their shower or bed bath, to prevent trach tie from getting wet. RT county manager notified of incident. Asked resident what transpired between him and the staff. He said he got mad because he did not introduce himself and did not explain what he was going to do so he got mad. Patient claims that he was sticking his tongue gesturing like spiting but no saliva. Explained to patient that he should not spit any staff and will remind staff to introduce self and explain any procedure to patient prior to doing it. He was pleased with the plan. Endorsed.
--- NOTE | 2018-08-30 12:50 | NUR ---
Seen and examined by Dr. Seaman, NNO given, patient smiling and in pleasant mood talking with the physician.
--- NOTE | 2018-08-30 13:28 | NUR ---
Subacute DirectorNaya contacted RAVI requesting a social service consultation to address an incident where the pt. spit at the RT. Per the RT EMR note, the pt. was verbally abusive and spit at the RT throughout the entire process of the RT cleaning the pt.s trach. SW met with pt. in his room to discuss said incident. Patient was receptive to meeting with SW. Upon SS consultation, the patient expressed that the RT wasnt amicable and requested that another RT service him in the future. SW validated the pt.s experience and provided brief counseling. SW educated and encouraged pt. to use verbal communication as opposed to spitting. Patient was agreeable and stated, thank you for talking to me about this. RAVI informed Subacute DirectorNaya about the pt.s request. SW will be available to support the pt. as needed. See RT DirectorJaniya's notes for safety protocol used to ensure staff safety and incident report.
[2018-08-30 20:31] VITALS: BP 107/59
[2018-08-30] MEDS: ZINC SULFATE 220 MG CAPSULE GT SCH (21:24)
[2018-08-30] MEDS: ENOXAPARIN SODIUM 40 MG/0.4 ML DISP.SYRIN SQ SCH (21:25)
[2018-08-30] MEDS: ATORVASTATIN 10 MG TABLET GT SCH (21:26)
[2018-08-30] MEDS: POLYETHYLENE GLYCOL 3350 17 GM POWD.PACK GT SCH (21:26)
[2018-08-31] MEDS: IPRATROPIUM NEB FS 0.5 MG/2.5 ML AMPUL.NEB NEB SCH ×4 (02:10→19:34)
--- NOTE | 2018-08-31 03:21 | NUR ---
RT NOTE PT REC'D TRACHED ON COOL AEROSOL @ 28% FIO2, PT PLACED ON MECH VENT ON AC MODE. PT AWAKE AND ALERT. NO RESP DISTRESS NOTED OR SOB NOTED. TRACH IS PATENT AND SECURED. ALARMS ARE SET AUDIBLE. VENT PLUGGED INTO RED OUTLET. AMBU BAG BEDSIDE. WILL CONTINUE TO MONITOR. Addendum: 08/31/18 at 0333 by CAITLIN SOTO RT Amended: Links added.
[2018-08-31] MEDS: HYDROCODONE/APAP 5/325MG 1 EACH TABLET GT PRN (04:34)
[2018-08-31] MEDS: SUCRALFATE 1 G/10 ML UDC GT SCH ×4 (06:35→20:41)
[2018-08-31 07:41] VITALS: BP 133/85
[2018-08-31] MEDS: ACIDOPHILUS/BULGARICUS 1 EACH TAB.CHEW GT SCH ×3 (08:58→17:00)
[2018-08-31] MEDS: GABAPENTIN 250 MG/5 ML GT SCH ×3 (08:58→17:00)
[2018-08-31] MEDS: BACLOFEN (10 MG) 10 MG TABLET GT SCH ×4 (08:58→20:41)
[2018-08-31] MEDS: ESCITALOPRAM OXALATE (10 MG) 10 MG TABLET GT SCH (08:58)
[2018-08-31] MEDS: HYDROCODONE/APAP 5/325MG 1 EACH TABLET GT SCH ×2 (08:59→21:45)
[2018-08-31] MEDS: MULTIVIT W/MINERALS 1 TAB TABLET GT SCH (08:59)
[2018-08-31] MEDS: PROSTAT (PYXIS) 30 ML UDC GT SCH ×3 (08:59→17:00)
[2018-08-31] MEDS: CALCITRIOL 0.25 MCG CAPSULE PO SCH (08:59)
[2018-08-31] MEDS: ASCORBIC ACID 500 MG TABLET GT SCH ×2 (08:59→17:00)
[2018-08-31] MEDS: METHADONE HCL 10 MG TABLET GT SCH (08:59)
[2018-08-31] MEDS: FAMOTIDINE (20 MG) 20 MG TABLET GT SCH ×2 (08:59→20:41)
[2018-08-31] MEDS: CALCIUM CARBONATE 500 MG TAB.CHEW GT SCH ×3 (08:59→17:00)
[2018-08-31] MEDS: CADEXOMER IODINE 40 GM TUBE TP SCH ×2 (09:00→20:43)
[2018-08-31] MEDS: DAKINS QUARTER STRENGTH (0.125%) 480 ML BOTTLE TOP SCH ×4 (09:00→20:41)
[2018-08-31] MEDS: HYDROGEL DRESSING 90 GM TUBE TP SCH ×4 (09:00→20:41)
[2018-08-31] MEDS: HYDROGEN PEROXIDE 480 ML BOTTLE TP SCH ×2 (09:00→20:41)
[2018-08-31] MEDS: MAGNESIUM HYDROXIDE 30 ML UDC GT PRN (18:05)
[2018-08-31 19:58] VITALS: BP 96/68
[2018-08-31] MEDS: ZINC SULFATE 220 MG CAPSULE GT SCH (20:41)
[2018-08-31] MEDS: ATORVASTATIN 10 MG TABLET GT SCH (21:28)
[2018-08-31] MEDS: POLYETHYLENE GLYCOL 3350 17 GM POWD.PACK GT SCH (21:28)
[2018-08-31] MEDS: ENOXAPARIN SODIUM 40 MG/0.4 ML DISP.SYRIN SQ SCH (21:28)
--- NOTE | 2018-08-31 22:05 | NUR ---
RT PATIENT WAS RECEIVED ON 28% COOL AEROSOL. PLACED PATIENT ON VENT PER MD ORDER. PATIENT TOLERATED CURRENT VENT SETTINGS. TRACH TUBE PATENT AND SECURED. PATIENT STABLE AT THIS TIME. WILL CONTINUE TO MONITOR. Addendum: 08/31/18 at 2209 by ROM ARAIZA RT Amended: Links added.
[2018-09-01] MEDS: HYDROCODONE/APAP 5/325MG 1 EACH TABLET GT PRN (00:41)
[2018-09-01] MEDS: IPRATROPIUM NEB FS 0.5 MG/2.5 ML AMPUL.NEB NEB SCH ×4 (01:13→20:30)
[2018-09-01] MEDS: SUCRALFATE 1 G/10 ML UDC GT SCH ×4 (05:54→20:30)
[2018-09-01 07:32] VITALS: BP 122/73
[2018-09-01] MEDS: HYDROGEL DRESSING 90 GM TUBE TP SCH ×4 (09:00→21:51)
[2018-09-01] MEDS: CADEXOMER IODINE 40 GM TUBE TP SCH ×2 (09:00→21:52)
[2018-09-01] MEDS: HYDROCODONE/APAP 5/325MG 1 EACH TABLET GT SCH ×2 (09:00→21:50)
[2018-09-01] MEDS: DAKINS QUARTER STRENGTH (0.125%) 480 ML BOTTLE TOP SCH ×4 (09:00→21:51)
[2018-09-01] MEDS: GABAPENTIN 250 MG/5 ML GT SCH ×3 (09:00→17:20)
[2018-09-01] MEDS: METHADONE HCL 10 MG TABLET GT SCH (09:56)
[2018-09-01] MEDS: CALCITRIOL 0.25 MCG CAPSULE PO SCH (09:57)
[2018-09-01] MEDS: ASCORBIC ACID 500 MG TABLET GT SCH ×2 (09:57→17:22)
[2018-09-01] MEDS: ACIDOPHILUS/BULGARICUS 1 EACH TAB.CHEW GT SCH ×3 (09:57→17:20)
[2018-09-01] MEDS: BACLOFEN (10 MG) 10 MG TABLET GT SCH ×4 (09:57→21:47)
[2018-09-01] MEDS: PROSTAT (PYXIS) 30 ML UDC GT SCH ×3 (09:57→17:21)
[2018-09-01] MEDS: FAMOTIDINE (20 MG) 20 MG TABLET GT SCH ×2 (09:57→21:50)
[2018-09-01] MEDS: ESCITALOPRAM OXALATE (10 MG) 10 MG TABLET GT SCH (09:57)
[2018-09-01] MEDS: MULTIVIT W/MINERALS 1 TAB TABLET GT SCH (09:57)
[2018-09-01] MEDS: CALCIUM CARBONATE 500 MG TAB.CHEW GT SCH ×3 (09:57→17:22)
--- NOTE | 2018-09-01 10:00 | NUR ---
RT Holbrook informed charge nurse that pt does not like him. He said that pt was cursing and spitting on him. RT Holbrook told charge nurse that they (RTs) are here to make sure that the patients are breathing and he does not need to be cursed or spat on. Spoke with pt. Asked him what happened with the RT this morning. Pt said RT was mean to him and that the RT was pushing on his trach too hard. Encouraged pt to tell the RT to stop what he is doing if it is hurting him instead of cursing and spitting. Pt said he told the RT to go away and he stuck his tongue out at him. Charge nurse also advised the pt not to curse and spit, but instead ask to speak with the charge nurse on duty if he has any complaints or concerns so they can be addressed.
[2018-09-01] MEDS: HYDROGEN PEROXIDE 480 ML BOTTLE TP SCH ×2 (12:39→21:52)
--- NOTE | 2018-09-01 12:55 | NUR ---
RT Yusef had to go to pt's room to give a breathing treatment. He asked charge nurse to go with him. Charge nurse and RT introduced themselves to pt and explained what needs to be done for him. Pt was calm and cooperative. RT Yusef said he knocked on the door, introduced himself, and explained the procedure to pt earlier this morning but pt still cursed and spat on him. Charge nurse and RT observed isolation precautions.
--- NOTE | 2018-09-01 18:20 | NUR ---
RT NOTE I had to walk in to pt. room for giving the breathing tx's with rafae isolation, knocked on the door, introduced myself, and explained the procedure to pt for 07 tx's, but pt still cursed and trying to spat on me. I will write on incident report and called the hair or beauty salon manager. RT had to go to pt's room to give a breathing treatment. 1330 I asked charge nurse to go with me. Charge nurse and RT introduced themselves to pt and explained what needs to be done for him. and pt. remain stable on 28% cool aerosol. report will pas s to pm shift. Addendum: 09/01/18 at 1829 by PAU HOOD RT Amended: Links added.
[2018-09-01 19:46] VITALS: BP 113/52
--- NOTE | 2018-09-01 20:38 | NUR ---
PT REC'D ON COOL AEROSOL @ 28% 5LPM PER MD ORDERS. PT PLACED ON MECH VENT ON AC MODE PER MD ORDERS. PT AWAKE AND ALERT. NO RESP DISTRESS OR SOB NOTED. SX'D FOR MOD AMT OF PALE YELLOW SECRETIONS. TRACH IS PATENT AND SECURED. ALARMS ARE SET AND AUDIBLE. VENT PLUGGED INTO RED OUTLET. AMBU BAG BEDSIDE. WILL CONTINUE TO MONITOR. Addendum: 09/01/18 at 2039 by CAITLIN SOTO RT Amended: Links added.
[2018-09-01] MEDS: ZINC SULFATE 220 MG CAPSULE GT SCH (21:50)
[2018-09-01] MEDS: ENOXAPARIN SODIUM 40 MG/0.4 ML DISP.SYRIN SQ SCH (21:51)
[2018-09-01] MEDS: ATORVASTATIN 10 MG TABLET GT SCH (21:52)
[2018-09-01] MEDS: POLYETHYLENE GLYCOL 3350 17 GM POWD.PACK GT SCH (21:52)
[2018-09-02] MEDS: IPRATROPIUM NEB FS 0.5 MG/2.5 ML AMPUL.NEB NEB SCH ×4 (02:55→19:32)
[2018-09-02] MEDS: SUCRALFATE 1 G/10 ML UDC GT SCH ×4 (05:58→20:30)
[2018-09-02 07:42] VITALS: BP 111/66
[2018-09-02 07:44] VITALS: BP 108/67
[2018-09-02] MEDS: CALCIUM CARBONATE 500 MG TAB.CHEW GT SCH ×3 (08:48→17:50)
[2018-09-02] MEDS: MULTIVIT W/MINERALS 1 TAB TABLET GT SCH (08:48)
[2018-09-02] MEDS: ESCITALOPRAM OXALATE (10 MG) 10 MG TABLET GT SCH (08:48)
[2018-09-02] MEDS: PROSTAT (PYXIS) 30 ML UDC GT SCH ×3 (08:48→17:50)
[2018-09-02] MEDS: ASCORBIC ACID 500 MG TABLET GT SCH ×2 (08:48→17:50)
[2018-09-02] MEDS: METHADONE HCL 10 MG TABLET GT SCH (08:48)
[2018-09-02] MEDS: FAMOTIDINE (20 MG) 20 MG TABLET GT SCH ×2 (08:48→21:00)
[2018-09-02] MEDS: BACLOFEN (10 MG) 10 MG TABLET GT SCH ×4 (08:48→21:00)
[2018-09-02] MEDS: ACIDOPHILUS/BULGARICUS 1 EACH TAB.CHEW GT SCH ×3 (08:48→17:50)
[2018-09-02] MEDS: GABAPENTIN 250 MG/5 ML GT SCH ×3 (08:48→17:50)
[2018-09-02] MEDS: CALCITRIOL 0.25 MCG CAPSULE PO SCH (08:48)
[2018-09-02] MEDS: DAKINS QUARTER STRENGTH (0.125%) 480 ML BOTTLE TOP SCH ×4 (09:00→21:00)
[2018-09-02] MEDS: HYDROGEL DRESSING 90 GM TUBE TP SCH ×4 (09:00→21:00)
[2018-09-02] MEDS: CADEXOMER IODINE 40 GM TUBE TP SCH ×2 (09:00→21:00)
[2018-09-02] MEDS: HYDROGEN PEROXIDE 480 ML BOTTLE TP SCH ×2 (10:20→21:02)
[2018-09-02] MEDS: HYDROCODONE/APAP 5/325MG 1 EACH TABLET GT SCH ×2 (11:00→21:00)
[2018-09-02 19:50] VITALS: BP 124/75
--- NOTE | 2018-09-02 20:51 | NUR ---
RT PATIENT WAS RECEIVED ON 28% COOL AEROSOL. PLACED PATIENT ON VENT PER MD ORDER. PATIENT TOLERATED CURRENT VENT SETTINGS. TRACH TUBE PATENT AND SECURED. PATIENT STABLE AT THIS TIME. WILL CONTINUE TO MONITOR Addendum: 09/02/18 at 2051 by ROM ARAIZA RT Amended: Links added.
[2018-09-02] MEDS: ZINC SULFATE 220 MG CAPSULE GT SCH (21:00)
[2018-09-02] MEDS: ENOXAPARIN SODIUM 40 MG/0.4 ML DISP.SYRIN SQ SCH (22:17)
[2018-09-02] MEDS: ATORVASTATIN 10 MG TABLET GT SCH (22:20)
[2018-09-02] MEDS: POLYETHYLENE GLYCOL 3350 17 GM POWD.PACK GT SCH (22:23)
[2018-09-03] MEDS: IPRATROPIUM NEB FS 0.5 MG/2.5 ML AMPUL.NEB NEB SCH ×4 (01:15→20:09)
[2018-09-03] MEDS: SUCRALFATE 1 G/10 ML UDC GT SCH ×4 (05:39→20:44)
[2018-09-03] MEDS: GABAPENTIN 250 MG/5 ML GT SCH ×3 (08:10→16:04)
[2018-09-03] MEDS: ESCITALOPRAM OXALATE (10 MG) 10 MG TABLET GT SCH (08:10)
[2018-09-03] MEDS: ACIDOPHILUS/BULGARICUS 1 EACH TAB.CHEW GT SCH ×3 (08:10→16:04)
[2018-09-03] MEDS: BACLOFEN (10 MG) 10 MG TABLET GT SCH ×4 (08:10→20:38)
[2018-09-03] MEDS: METHADONE HCL 10 MG TABLET GT SCH (08:10)
[2018-09-03] MEDS: CALCITRIOL 0.25 MCG CAPSULE PO SCH (08:11)
[2018-09-03] MEDS: ASCORBIC ACID 500 MG TABLET GT SCH ×2 (08:11→16:04)
[2018-09-03] MEDS: MULTIVIT W/MINERALS 1 TAB TABLET GT SCH (08:11)
[2018-09-03] MEDS: CALCIUM CARBONATE 500 MG TAB.CHEW GT SCH ×3 (08:11→16:04)
[2018-09-03] MEDS: FAMOTIDINE (20 MG) 20 MG TABLET GT SCH ×2 (08:11→20:39)
[2018-09-03] MEDS: PROSTAT (PYXIS) 30 ML UDC GT SCH ×3 (08:11→16:04)
[2018-09-03] MEDS: HYDROGEN PEROXIDE 480 ML BOTTLE TP SCH ×2 (09:21→20:40)
[2018-09-03 09:47] VITALS: BP 141/88
[2018-09-03] MEDS: HYDROCODONE/APAP 5/325MG 1 EACH TABLET GT SCH ×2 (13:30→20:44)
[2018-09-03] MEDS: HYDROGEL DRESSING 90 GM TUBE TP SCH ×4 (14:30→20:40)
[2018-09-03] MEDS: CADEXOMER IODINE 40 GM TUBE TP SCH ×2 (14:30→20:40)
[2018-09-03] MEDS: DAKINS QUARTER STRENGTH (0.125%) 480 ML BOTTLE TOP SCH ×4 (14:30→20:40)
--- NOTE | 2018-09-03 16:56 | NUR ---
RT NOTES TRACH TUBE IN PLACE, PATENT, AND SECURED WITH TRACH TIE. PLACED ON C/A, CUFF DEFLATED @ 0700 PER MD ORDERS. TOLERATE WELL. NO SIGNS OF ANY DISTRESS. TRACH CARE PERFORMED. Addendum: 09/03/18 at 1657 by JERONIMO YOUNG RT Amended: Links added.
--- NOTE | 2018-09-03 20:09 | NUR ---
PT RECEIVED TRACHED ON COOL AEROSOL W/ PMV. PT PLACED ON [facility] VENT ON ORDERED NOC SETTINGS. NO DISTRESS NOTED AT THIS TIME. Addendum: 09/04/18 at 0433 by DAMON PAZ RT Amended: Links added.
[2018-09-03] MEDS: ZINC SULFATE 220 MG CAPSULE GT SCH (20:39)
[2018-09-03] MEDS: ENOXAPARIN SODIUM 40 MG/0.4 ML DISP.SYRIN SQ SCH (20:40)
[2018-09-03] MEDS: POLYETHYLENE GLYCOL 3350 17 GM POWD.PACK GT SCH (21:13)
[2018-09-03] MEDS: ATORVASTATIN 10 MG TABLET GT SCH (21:13)
[2018-09-03 22:00] VITALS: BP 123/70
[2018-09-04] MEDS: IPRATROPIUM NEB FS 0.5 MG/2.5 ML AMPUL.NEB NEB SCH ×4 (01:41→17:34)
[2018-09-04] MEDS: HYDROCODONE/APAP 5/325MG 1 EACH TABLET GT PRN (01:49)
[2018-09-04] MEDS: SUCRALFATE 1 G/10 ML UDC GT SCH ×4 (05:36→20:04)
[2018-09-04] MEDS: ESCITALOPRAM OXALATE (10 MG) 10 MG TABLET GT SCH (08:56)
[2018-09-04] MEDS: ACIDOPHILUS/BULGARICUS 1 EACH TAB.CHEW GT SCH ×3 (08:56→17:33)
[2018-09-04] MEDS: MULTIVIT W/MINERALS 1 TAB TABLET GT SCH (08:57)
[2018-09-04] MEDS: BACLOFEN (10 MG) 10 MG TABLET GT SCH ×4 (08:57→20:04)
[2018-09-04] MEDS: PROSTAT (PYXIS) 30 ML UDC GT SCH ×3 (08:57→17:34)
[2018-09-04] MEDS: FAMOTIDINE (20 MG) 20 MG TABLET GT SCH ×2 (08:57→20:09)
[2018-09-04] MEDS: ASCORBIC ACID 500 MG TABLET GT SCH ×2 (08:58→17:34)
[2018-09-04] MEDS: CALCIUM CARBONATE 500 MG TAB.CHEW GT SCH ×3 (08:58→17:34)
[2018-09-04] MEDS: CALCITRIOL 0.25 MCG CAPSULE PO SCH (08:58)
[2018-09-04] MEDS: HYDROGEL DRESSING 90 GM TUBE TP SCH ×4 (08:59→20:12)
[2018-09-04] MEDS: HYDROGEN PEROXIDE 480 ML BOTTLE TP SCH ×2 (08:59→20:13)
[2018-09-04] MEDS: CADEXOMER IODINE 40 GM TUBE TP SCH ×2 (08:59→20:13)
[2018-09-04] MEDS: DAKINS QUARTER STRENGTH (0.125%) 480 ML BOTTLE TOP SCH ×4 (08:59→20:12)
--- NOTE | 2018-09-04 09:00 | NUR ---
Seen and examined by Dr. Ugarte, no new order given.
[2018-09-04] MEDS: GABAPENTIN 250 MG/5 ML GT SCH ×3 (09:01→17:33)
[2018-09-04] MEDS: METHADONE HCL 10 MG TABLET GT SCH (09:07)
[2018-09-04] MEDS: HYDROCODONE/APAP 5/325MG 1 EACH TABLET GT SCH ×2 (09:08→20:07)
[2018-09-04 19:52] VITALS: BP 121/75
[2018-09-04] MEDS: ZINC SULFATE 220 MG CAPSULE GT SCH (20:10)
[2018-09-04] MEDS: ENOXAPARIN SODIUM 40 MG/0.4 ML DISP.SYRIN SQ SCH (20:11)
--- NOTE | 2018-09-04 20:30 | NUR ---
SCHEDULED PAIN MEDICATION NORCO 5-325 MG VIA GTUBE ADMINISTER AND MONITOR PATIENT RELIEF AND COMFORT.
[2018-09-04 20:33] VITALS: BP 121/75
[2018-09-04] MEDS: ATORVASTATIN 10 MG TABLET GT SCH (21:55)
[2018-09-04] MEDS: POLYETHYLENE GLYCOL 3350 17 GM POWD.PACK GT SCH (21:56)
[2018-09-05] MEDS: IPRATROPIUM NEB FS 0.5 MG/2.5 ML AMPUL.NEB NEB SCH ×4 (00:33→20:11)
[2018-09-05] MEDS: SUCRALFATE 1 G/10 ML UDC GT SCH ×4 (06:11→21:23)
[2018-09-05 07:51] VITALS: BP 128/72
[2018-09-05] MEDS: GABAPENTIN 250 MG/5 ML GT SCH ×3 (08:58→16:33)
[2018-09-05] MEDS: ESCITALOPRAM OXALATE (10 MG) 10 MG TABLET GT SCH (08:58)
[2018-09-05] MEDS: BACLOFEN (10 MG) 10 MG TABLET GT SCH ×4 (08:58→21:24)
[2018-09-05] MEDS: ACIDOPHILUS/BULGARICUS 1 EACH TAB.CHEW GT SCH ×3 (08:58→16:33)
[2018-09-05] MEDS: METHADONE HCL 10 MG TABLET GT SCH (08:59)
[2018-09-05] MEDS: HYDROGEL DRESSING 90 GM TUBE TP SCH ×4 (09:00→21:53)
[2018-09-05] MEDS: HYDROGEN PEROXIDE 480 ML BOTTLE TP SCH ×2 (09:00→21:00)
[2018-09-05] MEDS: DAKINS QUARTER STRENGTH (0.125%) 480 ML BOTTLE TOP SCH ×4 (09:00→21:53)
[2018-09-05] MEDS: CADEXOMER IODINE 40 GM TUBE TP SCH ×2 (09:00→21:54)
[2018-09-05] MEDS: HYDROCODONE/APAP 5/325MG 1 EACH TABLET GT SCH ×2 (09:01→21:24)
[2018-09-05] MEDS: FAMOTIDINE (20 MG) 20 MG TABLET GT SCH ×2 (09:01→21:24)
[2018-09-05] MEDS: PROSTAT (PYXIS) 30 ML UDC GT SCH ×3 (09:01→16:33)
[2018-09-05] MEDS: CALCIUM CARBONATE 500 MG TAB.CHEW GT SCH ×3 (09:02→16:33)
[2018-09-05] MEDS: CALCITRIOL 0.25 MCG CAPSULE PO SCH (09:02)
[2018-09-05] MEDS: ASCORBIC ACID 500 MG TABLET GT SCH ×2 (09:02→16:33)
[2018-09-05] MEDS: MULTIVIT W/MINERALS 1 TAB TABLET GT SCH (09:02)
--- NOTE | 2018-09-05 10:45 | NUR ---
Seen and examined by Dr. Seaman, no new order given.
--- NOTE | 2018-09-05 10:50 | NUR ---
SW visited patient in his room upon pt.s request. Patient was sleeping upon older adult social work specialist consultation. However, the pt. was easily rousable and receptive to speaking to SW. Patient expressed feelings of frustration regarding physical ailment. SW expressed empathy through reflective listening. SW validated and normalized the patients frustration. SW explored the ways in which the IDT are assisting him in improving his health. Patient expressed being grateful for IDTs effort to improve his health. SW supported patients optimism and informed patient that SW will be available for further counseling as needed.
[2018-09-05] MEDS: HYDROCODONE/APAP 5/325MG 1 EACH TABLET GT PRN (15:02)
[2018-09-05 20:19] VITALS: BP 101/61
[2018-09-05] MEDS: ZINC SULFATE 220 MG CAPSULE GT SCH (21:24)
[2018-09-05] MEDS: POLYETHYLENE GLYCOL 3350 17 GM POWD.PACK GT SCH (21:25)
[2018-09-05] MEDS: ENOXAPARIN SODIUM 40 MG/0.4 ML DISP.SYRIN SQ SCH (21:25)
[2018-09-05] MEDS: ATORVASTATIN 10 MG TABLET GT SCH (21:25)
[2018-09-06] MEDS: IPRATROPIUM NEB FS 0.5 MG/2.5 ML AMPUL.NEB NEB SCH ×4 (01:34→20:10)
[2018-09-06] MEDS: METHOCARBAMOL (750MG) 750 MG TABLET GT PRN (01:58)
[2018-09-06] MEDS: SUCRALFATE 1 G/10 ML UDC GT SCH ×4 (06:17→21:26)
[2018-09-06 07:49] VITALS: BP 130/75
[2018-09-06] MEDS: GABAPENTIN 250 MG/5 ML GT SCH ×3 (08:30→16:19)
[2018-09-06] MEDS: BACLOFEN (10 MG) 10 MG TABLET GT SCH ×4 (08:31→21:26)
[2018-09-06] MEDS: ACIDOPHILUS/BULGARICUS 1 EACH TAB.CHEW GT SCH ×3 (08:31→16:19)
[2018-09-06] MEDS: ESCITALOPRAM OXALATE (10 MG) 10 MG TABLET GT SCH (08:31)
[2018-09-06] MEDS: METHADONE HCL 10 MG TABLET GT SCH (08:33)
[2018-09-06] MEDS: PROSTAT (PYXIS) 30 ML UDC GT SCH ×3 (08:36→16:19)
[2018-09-06] MEDS: CALCIUM CARBONATE 500 MG TAB.CHEW GT SCH ×3 (08:36→16:19)
[2018-09-06] MEDS: MULTIVIT W/MINERALS 1 TAB TABLET GT SCH (08:36)
[2018-09-06] MEDS: HYDROCODONE/APAP 5/325MG 1 EACH TABLET GT SCH ×2 (08:36→21:26)
[2018-09-06] MEDS: FAMOTIDINE (20 MG) 20 MG TABLET GT SCH ×2 (08:36→21:26)
[2018-09-06] MEDS: ASCORBIC ACID 500 MG TABLET GT SCH ×2 (08:36→16:19)
[2018-09-06] MEDS: CALCITRIOL 0.25 MCG CAPSULE PO SCH (08:36)
[2018-09-06] MEDS: HYDROGEN PEROXIDE 480 ML BOTTLE TP SCH ×2 (09:00→21:00)
[2018-09-06] MEDS: CADEXOMER IODINE 40 GM TUBE TP SCH ×2 (09:00→21:58)
[2018-09-06] MEDS: DAKINS QUARTER STRENGTH (0.125%) 480 ML BOTTLE TOP SCH ×4 (09:00→21:58)
[2018-09-06] MEDS: HYDROGEL DRESSING 90 GM TUBE TP SCH ×4 (09:00→21:58)
[2018-09-06 20:14] VITALS: BP 101/64
[2018-09-06] MEDS: ZINC SULFATE 220 MG CAPSULE GT SCH (21:26)
[2018-09-06] MEDS: ATORVASTATIN 10 MG TABLET GT SCH (21:27)
[2018-09-06] MEDS: POLYETHYLENE GLYCOL 3350 17 GM POWD.PACK GT SCH (21:27)
[2018-09-06] MEDS: ENOXAPARIN SODIUM 40 MG/0.4 ML DISP.SYRIN SQ SCH (21:31)
[2018-09-07] MEDS: IPRATROPIUM NEB FS 0.5 MG/2.5 ML AMPUL.NEB NEB SCH ×4 (01:47→20:03)
[2018-09-07] MEDS: METHOCARBAMOL (750MG) 750 MG TABLET GT PRN (03:00)
[2018-09-07] MEDS: SUCRALFATE 1 G/10 ML UDC GT SCH ×4 (06:07→21:27)
[2018-09-07 07:45] VITALS: BP 136/62
[2018-09-07] MEDS: DAKINS QUARTER STRENGTH (0.125%) 480 ML BOTTLE TOP SCH ×4 (09:00→21:57)
[2018-09-07] MEDS: HYDROGEN PEROXIDE 480 ML BOTTLE TP SCH ×2 (09:00→21:00)
[2018-09-07] MEDS: HYDROGEL DRESSING 90 GM TUBE TP SCH ×4 (09:00→21:57)
[2018-09-07] MEDS: CADEXOMER IODINE 40 GM TUBE TP SCH ×2 (09:00→21:57)
[2018-09-07] MEDS: METHADONE HCL 10 MG TABLET GT SCH (09:39)
[2018-09-07] MEDS: HYDROCODONE/APAP 5/325MG 1 EACH TABLET GT SCH ×2 (09:39→21:27)
[2018-09-07] MEDS: GABAPENTIN 250 MG/5 ML GT SCH ×3 (09:39→17:43)
[2018-09-07] MEDS: PROSTAT (PYXIS) 30 ML UDC GT SCH ×3 (09:39→17:43)
[2018-09-07] MEDS: FAMOTIDINE (20 MG) 20 MG TABLET GT SCH ×2 (09:39→21:27)
[2018-09-07] MEDS: BACLOFEN (10 MG) 10 MG TABLET GT SCH ×4 (09:39→21:27)
[2018-09-07] MEDS: ACIDOPHILUS/BULGARICUS 1 EACH TAB.CHEW GT SCH ×3 (09:39→17:43)
[2018-09-07] MEDS: ESCITALOPRAM OXALATE (10 MG) 10 MG TABLET GT SCH (09:39)
[2018-09-07] MEDS: CALCITRIOL 0.25 MCG CAPSULE PO SCH (09:40)
[2018-09-07] MEDS: CALCIUM CARBONATE 500 MG TAB.CHEW GT SCH ×3 (09:40→17:43)
[2018-09-07] MEDS: ASCORBIC ACID 500 MG TABLET GT SCH ×2 (09:40→17:43)
[2018-09-07] MEDS: MULTIVIT W/MINERALS 1 TAB TABLET GT SCH (09:40)
--- NOTE | 2018-09-07 14:37 | NUR ---
SW met with patient for SS consultation per sophia Person's request. Patient was receptive to meeting with RAVI. SW presented patient with mail he has received from [employer]. Patient expressed he wanted SW to read the mail for him. SW read mail for patient. Per patient, mail may be discarded.
[2018-09-07] MEDS: MAGNESIUM HYDROXIDE 30 ML UDC GT PRN (17:43)
[2018-09-07 20:00] VITALS: BP 101/64
[2018-09-07] MEDS: POLYETHYLENE GLYCOL 3350 17 GM POWD.PACK GT SCH (21:27)
[2018-09-07] MEDS: ATORVASTATIN 10 MG TABLET GT SCH (21:27)
[2018-09-07] MEDS: ZINC SULFATE 220 MG CAPSULE GT SCH (21:27)
[2018-09-07] MEDS: ENOXAPARIN SODIUM 40 MG/0.4 ML DISP.SYRIN SQ SCH (21:30)
[2018-09-08] MEDS: IPRATROPIUM NEB FS 0.5 MG/2.5 ML AMPUL.NEB NEB SCH ×4 (01:35→19:26)
[2018-09-08] MEDS: HYDROCODONE/APAP 5/325MG 1 EACH TABLET GT PRN ×2 (03:48→13:45)
[2018-09-08] MEDS: SUCRALFATE 1 G/10 ML UDC GT SCH ×4 (06:21→20:22)
[2018-09-08 08:44] VITALS: BP 136/76
[2018-09-08] MEDS: CADEXOMER IODINE 40 GM TUBE TP SCH ×2 (09:00→20:23)
[2018-09-08] MEDS: HYDROGEL DRESSING 90 GM TUBE TP SCH ×4 (09:00→20:22)
[2018-09-08] MEDS: HYDROGEN PEROXIDE 480 ML BOTTLE TP SCH ×2 (09:00→20:23)
[2018-09-08] MEDS: DAKINS QUARTER STRENGTH (0.125%) 480 ML BOTTLE TOP SCH ×4 (09:00→20:22)
[2018-09-08] MEDS: GABAPENTIN 250 MG/5 ML GT SCH ×3 (09:53→17:59)
[2018-09-08] MEDS: ESCITALOPRAM OXALATE (10 MG) 10 MG TABLET GT SCH (09:53)
[2018-09-08] MEDS: ACIDOPHILUS/BULGARICUS 1 EACH TAB.CHEW GT SCH ×3 (09:53→17:59)
[2018-09-08] MEDS: BACLOFEN (10 MG) 10 MG TABLET GT SCH ×4 (09:53→20:22)
[2018-09-08] MEDS: PROSTAT (PYXIS) 30 ML UDC GT SCH ×3 (09:54→17:59)
[2018-09-08] MEDS: ASCORBIC ACID 500 MG TABLET GT SCH ×2 (09:54→17:59)
[2018-09-08] MEDS: MULTIVIT W/MINERALS 1 TAB TABLET GT SCH (09:54)
[2018-09-08] MEDS: HYDROCODONE/APAP 5/325MG 1 EACH TABLET GT SCH ×2 (09:54→21:41)
[2018-09-08] MEDS: CALCITRIOL 0.25 MCG CAPSULE PO SCH (09:54)
[2018-09-08] MEDS: CALCIUM CARBONATE 500 MG TAB.CHEW GT SCH ×3 (09:54→17:59)
[2018-09-08] MEDS: METHADONE HCL 10 MG TABLET GT SCH (09:54)
[2018-09-08] MEDS: FAMOTIDINE (20 MG) 20 MG TABLET GT SCH ×2 (09:54→20:22)
[2018-09-08 19:52] VITALS: BP 116/70
[2018-09-08] MEDS: ZINC SULFATE 220 MG CAPSULE GT SCH (20:22)
[2018-09-08] MEDS: ENOXAPARIN SODIUM 40 MG/0.4 ML DISP.SYRIN SQ SCH (21:13)
[2018-09-08] MEDS: POLYETHYLENE GLYCOL 3350 17 GM POWD.PACK GT SCH (21:13)
[2018-09-08] MEDS: ATORVASTATIN 10 MG TABLET GT SCH (21:13)
[2018-09-09] MEDS: IPRATROPIUM NEB FS 0.5 MG/2.5 ML AMPUL.NEB NEB SCH ×4 (01:39→19:43)
[2018-09-09] MEDS: HYDROCODONE/APAP 5/325MG 1 EACH TABLET GT PRN (02:49)
[2018-09-09] MEDS: SUCRALFATE 1 G/10 ML UDC GT SCH ×4 (06:14→20:30)
[2018-09-09 07:48] VITALS: BP 144/78
[2018-09-09] MEDS: PROSTAT (PYXIS) 30 ML UDC GT SCH ×3 (09:00→17:45)
[2018-09-09] MEDS: MULTIVIT W/MINERALS 1 TAB TABLET GT SCH (09:00)
[2018-09-09] MEDS: HYDROCODONE/APAP 5/325MG 1 EACH TABLET GT SCH ×2 (09:00→21:33)
[2018-09-09] MEDS: BACLOFEN (10 MG) 10 MG TABLET GT SCH ×4 (09:00→21:32)
[2018-09-09] MEDS: METHADONE HCL 10 MG TABLET GT SCH (09:00)
[2018-09-09] MEDS: HYDROGEL DRESSING 90 GM TUBE TP SCH ×4 (09:00→21:35)
[2018-09-09] MEDS: CALCIUM CARBONATE 500 MG TAB.CHEW GT SCH ×3 (09:00→17:45)
[2018-09-09] MEDS: HYDROGEN PEROXIDE 480 ML BOTTLE TP SCH ×2 (09:00→21:35)
[2018-09-09] MEDS: ACIDOPHILUS/BULGARICUS 1 EACH TAB.CHEW GT SCH ×3 (09:00→17:45)
[2018-09-09] MEDS: ESCITALOPRAM OXALATE (10 MG) 10 MG TABLET GT SCH (09:00)
[2018-09-09] MEDS: GABAPENTIN 250 MG/5 ML GT SCH ×3 (09:00→17:44)
[2018-09-09] MEDS: FAMOTIDINE (20 MG) 20 MG TABLET GT SCH ×2 (09:00→21:33)
[2018-09-09] MEDS: CADEXOMER IODINE 40 GM TUBE TP SCH ×2 (09:00→21:35)
[2018-09-09] MEDS: ASCORBIC ACID 500 MG TABLET GT SCH ×2 (09:00→17:45)
[2018-09-09] MEDS: DAKINS QUARTER STRENGTH (0.125%) 480 ML BOTTLE TOP SCH ×4 (09:00→21:35)
[2018-09-09] MEDS: CALCITRIOL 0.25 MCG CAPSULE PO SCH (09:00)
--- NOTE | 2018-09-09 19:43 | NUR ---
PATIENT RECEIVED ON COOL AEROSOL. PLACED PATIENT ON MECHANICAL VENTILATION PER NOC ORDER. PT IS AWAKE AND ALERT. CUFF CHECKED VIA FAILURE ANALYSIS ENGINEER. AMBU BAG/BACK UP TRACH @ BEDSIDE. VENT PLUGGED INTO RED OUTLET. ALARMS ON AND AUDIBLE. TX GIVEN, NO ADVERSE REACTIONS NOTED. SX DONE, MODERATE THICK YELLOW SECRETIONS NOTED. PATIENT STABLE. WILL MONITOR.
[2018-09-09 19:45] VITALS: BP 103/64
[2018-09-09] MEDS: ZINC SULFATE 220 MG CAPSULE GT SCH (21:33)
[2018-09-09] MEDS: POLYETHYLENE GLYCOL 3350 17 GM POWD.PACK GT SCH (21:35)
[2018-09-09] MEDS: ATORVASTATIN 10 MG TABLET GT SCH (21:35)
[2018-09-09] MEDS: ENOXAPARIN SODIUM 40 MG/0.4 ML DISP.SYRIN SQ SCH (21:35)
[2018-09-10] MEDS: IPRATROPIUM NEB FS 0.5 MG/2.5 ML AMPUL.NEB NEB SCH ×4 (01:28→19:26)
[2018-09-10] MEDS: SUCRALFATE 1 G/10 ML UDC GT SCH ×4 (05:46→21:05)
[2018-09-10 07:39] VITALS: BP 137/81
[2018-09-10] MEDS: ACIDOPHILUS/BULGARICUS 1 EACH TAB.CHEW GT SCH ×3 (09:17→16:10)
[2018-09-10] MEDS: BACLOFEN (10 MG) 10 MG TABLET GT SCH ×4 (09:17→21:05)
[2018-09-10] MEDS: ESCITALOPRAM OXALATE (10 MG) 10 MG TABLET GT SCH (09:17)
[2018-09-10] MEDS: GABAPENTIN 250 MG/5 ML GT SCH ×3 (09:17→16:10)
[2018-09-10] MEDS: METHADONE HCL 10 MG TABLET GT SCH (09:18)
[2018-09-10] MEDS: FAMOTIDINE (20 MG) 20 MG TABLET GT SCH ×2 (09:19→21:07)
[2018-09-10] MEDS: HYDROCODONE/APAP 5/325MG 1 EACH TABLET GT SCH ×2 (09:19→21:07)
[2018-09-10] MEDS: PROSTAT (PYXIS) 30 ML UDC GT SCH ×3 (09:19→16:10)
[2018-09-10] MEDS: CALCIUM CARBONATE 500 MG TAB.CHEW GT SCH ×3 (09:20→16:10)
[2018-09-10] MEDS: CADEXOMER IODINE 40 GM TUBE TP SCH ×2 (09:20→21:09)
[2018-09-10] MEDS: CALCITRIOL 0.25 MCG CAPSULE PO SCH (09:20)
[2018-09-10] MEDS: HYDROGEL DRESSING 90 GM TUBE TP SCH ×4 (09:20→21:09)
[2018-09-10] MEDS: DAKINS QUARTER STRENGTH (0.125%) 480 ML BOTTLE TOP SCH ×4 (09:20→21:08)
[2018-09-10] MEDS: ASCORBIC ACID 500 MG TABLET GT SCH ×2 (09:20→16:10)
[2018-09-10] MEDS: MULTIVIT W/MINERALS 1 TAB TABLET GT SCH (09:20)
[2018-09-10] MEDS: HYDROGEN PEROXIDE 480 ML BOTTLE TP SCH ×2 (13:25→21:00)
[2018-09-10 20:31] VITALS: BP 106/74
[2018-09-10] MEDS: ZINC SULFATE 220 MG CAPSULE GT SCH (21:07)
[2018-09-10] MEDS: ENOXAPARIN SODIUM 40 MG/0.4 ML DISP.SYRIN SQ SCH (21:08)
[2018-09-10] MEDS: ATORVASTATIN 10 MG TABLET GT SCH (21:09)
[2018-09-10] MEDS: POLYETHYLENE GLYCOL 3350 17 GM POWD.PACK GT SCH (21:10)
[2018-09-11] MEDS: IPRATROPIUM NEB FS 0.5 MG/2.5 ML AMPUL.NEB NEB SCH ×4 (01:03→19:22)
[2018-09-11] MEDS: SUCRALFATE 1 G/10 ML UDC GT SCH ×4 (05:21→21:29)
[2018-09-11 07:58] VITALS: BP 153/77
[2018-09-11] MEDS: DAKINS QUARTER STRENGTH (0.125%) 480 ML BOTTLE TOP SCH ×4 (09:00→21:33)
[2018-09-11] MEDS: MULTIVIT W/MINERALS 1 TAB TABLET GT SCH (09:00)
[2018-09-11] MEDS: HYDROCODONE/APAP 5/325MG 1 EACH TABLET GT SCH ×2 (09:00→21:31)
[2018-09-11] MEDS: FAMOTIDINE (20 MG) 20 MG TABLET GT SCH ×2 (09:00→21:31)
[2018-09-11] MEDS: ACIDOPHILUS/BULGARICUS 1 EACH TAB.CHEW GT SCH ×3 (09:00→17:12)
[2018-09-11] MEDS: CADEXOMER IODINE 40 GM TUBE TP SCH ×2 (09:00→21:34)
[2018-09-11] MEDS: METHADONE HCL 10 MG TABLET GT SCH (09:00)
[2018-09-11] MEDS: PROSTAT (PYXIS) 30 ML UDC GT SCH ×3 (09:00→17:12)
[2018-09-11] MEDS: ESCITALOPRAM OXALATE (10 MG) 10 MG TABLET GT SCH (09:00)
[2018-09-11] MEDS: BACLOFEN (10 MG) 10 MG TABLET GT SCH ×4 (09:00→21:30)
[2018-09-11] MEDS: HYDROGEL DRESSING 90 GM TUBE TP SCH ×4 (09:00→21:33)
[2018-09-11] MEDS: ASCORBIC ACID 500 MG TABLET GT SCH ×2 (09:00→17:12)
[2018-09-11] MEDS: GABAPENTIN 250 MG/5 ML GT SCH ×3 (09:00→17:12)
[2018-09-11] MEDS: CALCIUM CARBONATE 500 MG TAB.CHEW GT SCH ×3 (09:00→17:12)
[2018-09-11] MEDS: CALCITRIOL 0.25 MCG CAPSULE PO SCH (09:00)
[2018-09-11] MEDS: HYDROGEN PEROXIDE 480 ML BOTTLE TP SCH ×2 (09:28→21:00)
--- NOTE | 2018-09-11 15:21 | NUR ---
11:15 am RAVI contacted patients responsible alliance party, sister, Vilma Marley [phone] to invite her to attend IDT meeting being held this Friday, September 14, 2018 at 12:30-1:30pm. RAVI was not able to reach Vilma but left a voicemail with call back number. RAVI will continue attempts to reach Vilma. 3:15 pm--RAVI attempted to reach pt.'s sister, Vilma Marley [phone] with no success. RAVI left Vilma a voicemail detailing IDT meeting time and location.
[2018-09-11 20:32] VITALS: BP 116/76
[2018-09-11] MEDS: ZINC SULFATE 220 MG CAPSULE GT SCH (21:31)
[2018-09-11] MEDS: ENOXAPARIN SODIUM 40 MG/0.4 ML DISP.SYRIN SQ SCH (21:32)
[2018-09-11] MEDS: ATORVASTATIN 10 MG TABLET GT SCH (21:34)
[2018-09-11] MEDS: POLYETHYLENE GLYCOL 3350 17 GM POWD.PACK GT SCH (21:34)
[2018-09-12] MEDS: IPRATROPIUM NEB FS 0.5 MG/2.5 ML AMPUL.NEB NEB SCH ×4 (02:01→21:27)
[2018-09-12] MEDS: SUCRALFATE 1 G/10 ML UDC GT SCH ×4 (06:31→20:32)
[2018-09-12 08:07] VITALS: BP 154/88
[2018-09-12] MEDS: ASCORBIC ACID 500 MG TABLET GT SCH ×2 (09:00→13:21)
[2018-09-12] MEDS: PROSTAT (PYXIS) 30 ML UDC GT SCH ×3 (09:00→17:00)
[2018-09-12] MEDS: MULTIVIT W/MINERALS 1 TAB TABLET GT SCH (09:00)
[2018-09-12] MEDS: HYDROGEL DRESSING 90 GM TUBE TP SCH ×4 (09:00→22:25)
[2018-09-12] MEDS: ESCITALOPRAM OXALATE (10 MG) 10 MG TABLET GT SCH (09:00)
[2018-09-12] MEDS: CALCIUM CARBONATE 500 MG TAB.CHEW GT SCH ×3 (09:00→17:00)
[2018-09-12] MEDS: DAKINS QUARTER STRENGTH (0.125%) 480 ML BOTTLE TOP SCH ×4 (09:00→22:23)
[2018-09-12] MEDS: BACLOFEN (10 MG) 10 MG TABLET GT SCH ×4 (09:00→20:32)
[2018-09-12] MEDS: HYDROCODONE/APAP 5/325MG 1 EACH TABLET GT SCH ×2 (09:00→20:33)
[2018-09-12] MEDS: FAMOTIDINE (20 MG) 20 MG TABLET GT SCH ×2 (09:00→20:33)
[2018-09-12] MEDS: GABAPENTIN 250 MG/5 ML GT SCH ×3 (09:00→17:00)
[2018-09-12] MEDS: METHADONE HCL 10 MG TABLET GT SCH (09:00)
[2018-09-12] MEDS: ACIDOPHILUS/BULGARICUS 1 EACH TAB.CHEW GT SCH ×3 (09:00→17:00)
[2018-09-12] MEDS: CALCITRIOL 0.25 MCG CAPSULE PO SCH (09:00)
[2018-09-12] MEDS: HYDROGEN PEROXIDE 480 ML BOTTLE TP SCH ×2 (09:00→21:00)
[2018-09-12] MEDS: CADEXOMER IODINE 40 GM TUBE TP SCH ×2 (09:00→21:00)
[2018-09-12] MEDS: MAGNESIUM HYDROXIDE 30 ML UDC GT PRN (17:38)
[2018-09-12 20:31] VITALS: BP 111/65
[2018-09-12] MEDS: ZINC SULFATE 220 MG CAPSULE GT SCH (20:33)
[2018-09-12] MEDS: ENOXAPARIN SODIUM 40 MG/0.4 ML DISP.SYRIN SQ SCH (20:34)
[2018-09-12] MEDS: POLYETHYLENE GLYCOL 3350 17 GM POWD.PACK GT SCH (22:27)
[2018-09-12] MEDS: ATORVASTATIN 10 MG TABLET GT SCH (22:27)
[2018-09-13] MEDS: IPRATROPIUM NEB FS 0.5 MG/2.5 ML AMPUL.NEB NEB SCH ×4 (02:39→20:03)
[2018-09-13] MEDS: SUCRALFATE 1 G/10 ML UDC GT SCH ×4 (06:08→21:28)
[2018-09-13 07:56] VITALS: BP 131/74
[2018-09-13] MEDS: ESCITALOPRAM OXALATE (10 MG) 10 MG TABLET GT SCH (08:54)
[2018-09-13] MEDS: GABAPENTIN 250 MG/5 ML GT SCH ×3 (08:54→17:34)
[2018-09-13] MEDS: BACLOFEN (10 MG) 10 MG TABLET GT SCH ×4 (08:54→21:28)
[2018-09-13] MEDS: ACIDOPHILUS/BULGARICUS 1 EACH TAB.CHEW GT SCH ×3 (08:54→17:34)
[2018-09-13] MEDS: METHADONE HCL 10 MG TABLET GT SCH (08:55)
[2018-09-13] MEDS: HYDROCODONE/APAP 5/325MG 1 EACH TABLET GT SCH ×2 (08:55→21:29)
[2018-09-13] MEDS: MULTIVIT W/MINERALS 1 TAB TABLET GT SCH (08:55)
[2018-09-13] MEDS: CALCITRIOL 0.25 MCG CAPSULE PO SCH (08:55)
[2018-09-13] MEDS: CALCIUM CARBONATE 500 MG TAB.CHEW GT SCH ×3 (08:55→17:34)
[2018-09-13] MEDS: FAMOTIDINE (20 MG) 20 MG TABLET GT SCH ×2 (08:55→21:29)
[2018-09-13] MEDS: ASCORBIC ACID 500 MG TABLET GT SCH ×2 (08:55→17:34)
[2018-09-13] MEDS: PROSTAT (PYXIS) 30 ML UDC GT SCH ×3 (08:55→17:34)
[2018-09-13] MEDS: DAKINS QUARTER STRENGTH (0.125%) 480 ML BOTTLE TOP SCH ×4 (09:00→21:56)
[2018-09-13] MEDS: HYDROGEL DRESSING 90 GM TUBE TP SCH ×4 (09:00→21:57)
[2018-09-13] MEDS: CADEXOMER IODINE 40 GM TUBE TP SCH ×2 (09:00→21:57)
[2018-09-13] MEDS: HYDROGEN PEROXIDE 480 ML BOTTLE TP SCH ×2 (09:42→21:00)
[2018-09-13 20:11] VITALS: BP 118/73
--- NOTE | 2018-09-13 21:00 | NUR ---
Seen by Peggy Hoffman no new orders.
[2018-09-13] MEDS: POLYETHYLENE GLYCOL 3350 17 GM POWD.PACK GT SCH (21:29)
[2018-09-13] MEDS: ZINC SULFATE 220 MG CAPSULE GT SCH (21:29)
[2018-09-13] MEDS: ATORVASTATIN 10 MG TABLET GT SCH (21:29)
[2018-09-13] MEDS: ENOXAPARIN SODIUM 40 MG/0.4 ML DISP.SYRIN SQ SCH (21:56)
[2018-09-14] MEDS: METHOCARBAMOL (750MG) 750 MG TABLET GT PRN (01:05)
[2018-09-14] MEDS: IPRATROPIUM NEB FS 0.5 MG/2.5 ML AMPUL.NEB NEB SCH ×4 (02:07→19:46)
[2018-09-14] MEDS: SUCRALFATE 1 G/10 ML UDC GT SCH ×4 (06:22→21:22)
[2018-09-14 07:27] VITALS: BP 118/75
[2018-09-14] MEDS: ACIDOPHILUS/BULGARICUS 1 EACH TAB.CHEW GT SCH ×3 (08:47→16:49)
[2018-09-14] MEDS: GABAPENTIN 250 MG/5 ML GT SCH ×3 (08:47→16:49)
[2018-09-14] MEDS: BACLOFEN (10 MG) 10 MG TABLET GT SCH ×4 (08:47→21:22)
[2018-09-14] MEDS: METHADONE HCL 10 MG TABLET GT SCH (08:47)
[2018-09-14] MEDS: ESCITALOPRAM OXALATE (10 MG) 10 MG TABLET GT SCH (08:47)
[2018-09-14] MEDS: HYDROCODONE/APAP 5/325MG 1 EACH TABLET GT SCH ×2 (08:47→21:22)
[2018-09-14] MEDS: PROSTAT (PYXIS) 30 ML UDC GT SCH ×3 (08:48→16:49)
[2018-09-14] MEDS: CALCITRIOL 0.25 MCG CAPSULE PO SCH (08:48)
[2018-09-14] MEDS: ASCORBIC ACID 500 MG TABLET GT SCH ×2 (08:48→16:49)
[2018-09-14] MEDS: CALCIUM CARBONATE 500 MG TAB.CHEW GT SCH ×3 (08:48→16:49)
[2018-09-14] MEDS: MULTIVIT W/MINERALS 1 TAB TABLET GT SCH (08:48)
[2018-09-14] MEDS: FAMOTIDINE (20 MG) 20 MG TABLET GT SCH ×2 (08:48→21:22)
[2018-09-14] MEDS: DAKINS QUARTER STRENGTH (0.125%) 480 ML BOTTLE TOP SCH ×4 (09:00→21:50)
[2018-09-14] MEDS: CADEXOMER IODINE 40 GM TUBE TP SCH ×2 (09:00→21:50)
[2018-09-14] MEDS: HYDROGEN PEROXIDE 480 ML BOTTLE TP SCH ×2 (09:00→21:00)
[2018-09-14] MEDS: HYDROGEL DRESSING 90 GM TUBE TP SCH ×2 (09:00→21:50)
--- NOTE | 2018-09-14 14:54 | NUR ---
INTERDISCIPLINARY PLAN OF CARE CONFERENCE was held today. The patients responsible republican Rocio Gomes [phone] could not attend not participate via phone conference. Dr. Ugarte and interdisciplinary team discussed the current plan of care in detail. Current orders as well as treatments and medications were reviewed. Per Dr. Ugarte, ventilator to be provided for patient 12 am-6 am daily. See other disciplines IDT notes for further details. Addendum: 09/14/18 at 1457 by ROULA SIN SW Corrected: INTERDISCIPLINARY PLAN OF CARE CONFERENCE was held today. The patients responsible republican/sister, Vilma Marley [phone] could not attend nor participate via phone conference. Dr. Ugarte and interdisciplinary team discussed the current plan of care in detail. Current orders as well as treatments and medications were reviewed. Per Dr. Ugarte, ventilator to be provided for patient 12 am-6 am daily. See other disciplines IDT notes for further details.
[2018-09-14 20:07] VITALS: BP 111/72
[2018-09-14] MEDS: ZINC SULFATE 220 MG CAPSULE GT SCH (21:22)
[2018-09-14] MEDS: POLYETHYLENE GLYCOL 3350 17 GM POWD.PACK GT SCH (21:23)
[2018-09-14] MEDS: ENOXAPARIN SODIUM 40 MG/0.4 ML DISP.SYRIN SQ SCH (21:23)
[2018-09-14] MEDS: ATORVASTATIN 10 MG TABLET GT SCH (21:23)
--- NOTE | 2018-09-14 21:46 | NUR ---
RT NOTE PT RECEIVED ON TRACHED ON COOL AEROSOL. AMBU BAG/BACK UP TRACH @ BEDSIDE. CONT. POX. @ BEDSIDE. TX GIVEN, NO ADVERSE REACTIONS NOTED. SX DONE, TRACH SECURED AND PATENT. WILL PLACE PATIENT ON VENT @ 0000 PER ORDER. WILL MONITOR. Addendum: 09/14/18 at 2150 by VERNELL CHRISTINE RT Amended: Links added.
[2018-09-15] MEDS: IPRATROPIUM NEB FS 0.5 MG/2.5 ML AMPUL.NEB NEB SCH ×4 (00:38→19:36)
[2018-09-15] MEDS: SUCRALFATE 1 G/10 ML UDC GT SCH ×4 (05:59→20:57)
[2018-09-15 08:05] VITALS: BP 128/62
[2018-09-15] MEDS: GABAPENTIN 250 MG/5 ML GT SCH ×3 (08:54→17:56)
[2018-09-15] MEDS: ESCITALOPRAM OXALATE (10 MG) 10 MG TABLET GT SCH (08:55)
[2018-09-15] MEDS: BACLOFEN (10 MG) 10 MG TABLET GT SCH ×4 (08:55→20:57)
[2018-09-15] MEDS: ACIDOPHILUS/BULGARICUS 1 EACH TAB.CHEW GT SCH ×3 (08:55→17:56)
[2018-09-15] MEDS: FAMOTIDINE (20 MG) 20 MG TABLET GT SCH ×2 (08:55→20:59)
[2018-09-15] MEDS: PROSTAT (PYXIS) 30 ML UDC GT SCH ×3 (08:55→17:56)
[2018-09-15] MEDS: ASCORBIC ACID 500 MG TABLET GT SCH ×2 (08:56→17:56)
[2018-09-15] MEDS: CALCIUM CARBONATE 500 MG TAB.CHEW GT SCH ×3 (08:56→17:56)
[2018-09-15] MEDS: CALCITRIOL 0.25 MCG CAPSULE PO SCH (08:56)
[2018-09-15] MEDS: MULTIVIT W/MINERALS 1 TAB TABLET GT SCH (08:56)
[2018-09-15] MEDS: CADEXOMER IODINE 40 GM TUBE TP SCH ×2 (09:00→21:01)
[2018-09-15] MEDS: HYDROGEL DRESSING 90 GM TUBE TP SCH ×4 (09:00→21:00)
[2018-09-15] MEDS: DAKINS QUARTER STRENGTH (0.125%) 480 ML BOTTLE TOP SCH ×4 (09:00→20:59)
[2018-09-15] MEDS: HYDROGEN PEROXIDE 480 ML BOTTLE TP SCH ×2 (09:04→21:00)
[2018-09-15] MEDS: METHADONE HCL 10 MG TABLET GT SCH (09:05)
[2018-09-15] MEDS: HYDROCODONE/APAP 5/325MG 1 EACH TABLET GT SCH ×2 (09:05→20:58)
[2018-09-15 20:03] VITALS: BP 105/75
[2018-09-15] MEDS: ENOXAPARIN SODIUM 40 MG/0.4 ML DISP.SYRIN SQ SCH (21:02)
[2018-09-15] MEDS: ZINC SULFATE 220 MG CAPSULE GT SCH (21:04)
[2018-09-15] MEDS: POLYETHYLENE GLYCOL 3350 17 GM POWD.PACK GT SCH (22:06)
[2018-09-15] MEDS: ATORVASTATIN 10 MG TABLET GT SCH (22:06)
[2018-09-16] MEDS: IPRATROPIUM NEB FS 0.5 MG/2.5 ML AMPUL.NEB NEB SCH ×4 (01:30→21:03)
[2018-09-16] MEDS: HYDROCODONE/APAP 10/325MG 1 EA TABLET PO PRN ×2 (01:42→18:05)
[2018-09-16] MEDS: METHOCARBAMOL (750MG) 750 MG TABLET GT PRN (04:28)
[2018-09-16] MEDS: SUCRALFATE 1 G/10 ML UDC GT SCH ×4 (06:36→20:30)
[2018-09-16 08:01] VITALS: BP 139/78
[2018-09-16] MEDS: HYDROGEN PEROXIDE 480 ML BOTTLE TP SCH ×3 (09:00→21:57)
[2018-09-16] MEDS: GABAPENTIN 250 MG/5 ML GT SCH ×3 (09:00→17:00)
[2018-09-16] MEDS: ACIDOPHILUS/BULGARICUS 1 EACH TAB.CHEW GT SCH ×3 (09:06→17:00)
[2018-09-16] MEDS: ESCITALOPRAM OXALATE (10 MG) 10 MG TABLET GT SCH (09:06)
[2018-09-16] MEDS: BACLOFEN (10 MG) 10 MG TABLET GT SCH ×4 (09:06→21:42)
[2018-09-16] MEDS: METHADONE HCL 10 MG TABLET GT SCH (09:06)
[2018-09-16] MEDS: CALCIUM CARBONATE 500 MG TAB.CHEW GT SCH ×3 (09:07→17:00)
[2018-09-16] MEDS: ASCORBIC ACID 500 MG TABLET GT SCH ×2 (09:07→17:00)
[2018-09-16] MEDS: PROSTAT (PYXIS) 30 ML UDC GT SCH ×3 (09:07→17:00)
[2018-09-16] MEDS: FAMOTIDINE (20 MG) 20 MG TABLET GT SCH ×2 (09:07→21:43)
[2018-09-16] MEDS: CALCITRIOL 0.25 MCG CAPSULE PO SCH (09:07)
[2018-09-16] MEDS: MULTIVIT W/MINERALS 1 TAB TABLET GT SCH (09:07)
[2018-09-16] MEDS: HYDROCODONE/APAP 5/325MG 1 EACH TABLET GT SCH ×2 (10:00→21:42)
[2018-09-16] MEDS: HYDROGEL DRESSING 90 GM TUBE TP SCH ×4 (10:30→21:44)
[2018-09-16] MEDS: CADEXOMER IODINE 40 GM TUBE TP SCH ×2 (10:30→21:44)
[2018-09-16] MEDS: DAKINS QUARTER STRENGTH (0.125%) 480 ML BOTTLE TOP SCH ×4 (10:30→21:43)
--- NOTE | 2018-09-16 10:31 | NUR ---
Seen and examined by Dr. Seaman, NNO given.
[2018-09-16 20:34] VITALS: BP 112/64
[2018-09-16] MEDS: ENOXAPARIN SODIUM 40 MG/0.4 ML DISP.SYRIN SQ SCH (21:43)
[2018-09-16] MEDS: ZINC SULFATE 220 MG CAPSULE GT SCH (21:43)
[2018-09-16] MEDS: POLYETHYLENE GLYCOL 3350 17 GM POWD.PACK GT SCH (21:44)
[2018-09-16] MEDS: ATORVASTATIN 10 MG TABLET GT SCH (21:44)
[2018-09-17] MEDS: IPRATROPIUM NEB FS 0.5 MG/2.5 ML AMPUL.NEB NEB SCH ×4 (02:39→19:22)
[2018-09-17] MEDS: SUCRALFATE 1 G/10 ML UDC GT SCH ×4 (06:46→20:30)
[2018-09-17 07:39] VITALS: BP 145/74
[2018-09-17] MEDS: PROSTAT (PYXIS) 30 ML UDC GT SCH ×3 (08:54→17:03)
[2018-09-17] MEDS: GABAPENTIN 250 MG/5 ML GT SCH ×3 (08:54→17:03)
[2018-09-17] MEDS: BACLOFEN (10 MG) 10 MG TABLET GT SCH ×4 (08:54→21:30)
[2018-09-17] MEDS: CALCIUM CARBONATE 500 MG TAB.CHEW GT SCH ×3 (08:54→17:03)
[2018-09-17] MEDS: ESCITALOPRAM OXALATE (10 MG) 10 MG TABLET GT SCH (08:54)
[2018-09-17] MEDS: METHADONE HCL 10 MG TABLET GT SCH (08:54)
[2018-09-17] MEDS: ACIDOPHILUS/BULGARICUS 1 EACH TAB.CHEW GT SCH ×3 (08:54→17:03)
[2018-09-17] MEDS: CALCITRIOL 0.25 MCG CAPSULE PO SCH (08:54)
[2018-09-17] MEDS: MULTIVIT W/MINERALS 1 TAB TABLET GT SCH (08:54)
[2018-09-17] MEDS: ASCORBIC ACID 500 MG TABLET GT SCH ×2 (08:54→17:03)
[2018-09-17] MEDS: FAMOTIDINE (20 MG) 20 MG TABLET GT SCH ×2 (08:54→21:32)
[2018-09-17] MEDS: HYDROGEN PEROXIDE 480 ML BOTTLE TP SCH ×2 (09:00→21:00)
[2018-09-17] MEDS: HYDROGEL DRESSING 90 GM TUBE TP SCH ×4 (09:00→21:33)
[2018-09-17] MEDS: HYDROCODONE/APAP 5/325MG 1 EACH TABLET GT SCH ×2 (11:00→21:32)
[2018-09-17] MEDS: CADEXOMER IODINE 40 GM TUBE TP SCH ×2 (11:00→21:33)
[2018-09-17] MEDS: DAKINS QUARTER STRENGTH (0.125%) 480 ML BOTTLE TOP SCH ×4 (11:00→21:33)
[2018-09-17 20:19] VITALS: BP 126/74
[2018-09-17] MEDS: ZINC SULFATE 220 MG CAPSULE GT SCH (21:32)
[2018-09-17] MEDS: ATORVASTATIN 10 MG TABLET GT SCH (21:33)
[2018-09-17] MEDS: ENOXAPARIN SODIUM 40 MG/0.4 ML DISP.SYRIN SQ SCH (21:33)
[2018-09-17] MEDS: POLYETHYLENE GLYCOL 3350 17 GM POWD.PACK GT SCH (21:34)
[2018-09-18] MEDS: IPRATROPIUM NEB FS 0.5 MG/2.5 ML AMPUL.NEB NEB SCH ×4 (01:27→19:51)
[2018-09-18] MEDS: SUCRALFATE 1 G/10 ML UDC GT SCH ×4 (05:44→21:19)
[2018-09-18 07:39] VITALS: BP 132/70
[2018-09-18] MEDS: ESCITALOPRAM OXALATE (10 MG) 10 MG TABLET GT SCH (08:42)
[2018-09-18] MEDS: METHADONE HCL 10 MG TABLET GT SCH (08:42)
[2018-09-18] MEDS: PROSTAT (PYXIS) 30 ML UDC GT SCH ×3 (08:42→16:26)
[2018-09-18] MEDS: CALCITRIOL 0.25 MCG CAPSULE PO SCH (08:42)
[2018-09-18] MEDS: ASCORBIC ACID 500 MG TABLET GT SCH ×2 (08:42→16:26)
[2018-09-18] MEDS: FAMOTIDINE (20 MG) 20 MG TABLET GT SCH ×2 (08:42→21:22)
[2018-09-18] MEDS: BACLOFEN (10 MG) 10 MG TABLET GT SCH ×4 (08:42→21:21)
[2018-09-18] MEDS: GABAPENTIN 250 MG/5 ML GT SCH ×3 (08:42→16:26)
[2018-09-18] MEDS: CALCIUM CARBONATE 500 MG TAB.CHEW GT SCH ×3 (08:42→16:26)
[2018-09-18] MEDS: MULTIVIT W/MINERALS 1 TAB TABLET GT SCH (08:42)
[2018-09-18] MEDS: ACIDOPHILUS/BULGARICUS 1 EACH TAB.CHEW GT SCH ×3 (08:42→16:26)
[2018-09-18] MEDS: HYDROGEN PEROXIDE 480 ML BOTTLE TP SCH ×2 (09:00→21:00)
[2018-09-18] MEDS: HYDROCODONE/APAP 5/325MG 1 EACH TABLET GT SCH ×2 (10:30→21:22)
[2018-09-18] MEDS: CADEXOMER IODINE 40 GM TUBE TP SCH ×2 (11:00→21:23)
[2018-09-18] MEDS: DAKINS QUARTER STRENGTH (0.125%) 480 ML BOTTLE TOP SCH ×4 (11:00→21:23)
[2018-09-18] MEDS: HYDROGEL DRESSING 90 GM TUBE TP SCH ×4 (11:00→21:23)
[2018-09-18 20:18] VITALS: BP 137/77
[2018-09-18] MEDS: ENOXAPARIN SODIUM 40 MG/0.4 ML DISP.SYRIN SQ SCH (21:20)
[2018-09-18] MEDS: ZINC SULFATE 220 MG CAPSULE GT SCH (21:22)
[2018-09-18] MEDS: ATORVASTATIN 10 MG TABLET GT SCH (21:23)
[2018-09-18] MEDS: POLYETHYLENE GLYCOL 3350 17 GM POWD.PACK GT SCH (21:24)
[2018-09-19] MEDS: IPRATROPIUM NEB FS 0.5 MG/2.5 ML AMPUL.NEB NEB SCH ×4 (01:30→19:41)
[2018-09-19] MEDS: SUCRALFATE 1 G/10 ML UDC GT SCH ×4 (05:29→20:30)
[2018-09-19 07:55] VITALS: BP 123/62
[2018-09-19] MEDS: HYDROGEN PEROXIDE 480 ML BOTTLE TP SCH ×3 (08:32→22:15)
[2018-09-19] MEDS: DAKINS QUARTER STRENGTH (0.125%) 480 ML BOTTLE TOP SCH ×4 (09:00→22:15)
[2018-09-19] MEDS: HYDROGEL DRESSING 90 GM TUBE TP SCH ×4 (09:00→22:15)
[2018-09-19] MEDS: CADEXOMER IODINE 40 GM TUBE TP SCH ×2 (09:00→22:15)
[2018-09-19] MEDS: BACLOFEN (10 MG) 10 MG TABLET GT SCH ×4 (09:42→21:38)
[2018-09-19] MEDS: ESCITALOPRAM OXALATE (10 MG) 10 MG TABLET GT SCH (09:42)
[2018-09-19] MEDS: GABAPENTIN 250 MG/5 ML GT SCH ×3 (09:42→17:00)
[2018-09-19] MEDS: METHADONE HCL 10 MG TABLET GT SCH (09:42)
[2018-09-19] MEDS: ACIDOPHILUS/BULGARICUS 1 EACH TAB.CHEW GT SCH ×3 (09:42→17:00)
[2018-09-19] MEDS: CALCITRIOL 0.25 MCG CAPSULE PO SCH (09:43)
[2018-09-19] MEDS: PROSTAT (PYXIS) 30 ML UDC GT SCH ×3 (09:43→17:00)
[2018-09-19] MEDS: CALCIUM CARBONATE 500 MG TAB.CHEW GT SCH ×3 (09:43→17:00)
[2018-09-19] MEDS: HYDROCODONE/APAP 5/325MG 1 EACH TABLET GT SCH ×2 (09:43→21:39)
[2018-09-19] MEDS: MULTIVIT W/MINERALS 1 TAB TABLET GT SCH (09:43)
[2018-09-19] MEDS: ASCORBIC ACID 500 MG TABLET GT SCH ×2 (09:43→17:00)
[2018-09-19] MEDS: FAMOTIDINE (20 MG) 20 MG TABLET GT SCH ×2 (09:43→21:39)
--- NOTE | 2018-09-19 09:48 | NUR ---
RT PATIENT REC'D TRACHED ON ORDERED MODALITY TOLERATED WELL. PATIENT APPEARS COMFORTABLE AND IN NO DISTRESS AT THIS TIME. PATIENT VERBALLY ABUSIVE AND COMBATIVE TOWARDS RT. PATIENT ATTEMPTED TO SPIT ON RT WHEN SUCTIONING TRACH. ALL SAFETY MEASURES CHECKED. WILL CONTINUE TO MONITOR CLOSELY. CONTINUE CURRENT PLAN OF RESP CARE. Addendum: 09/19/18 at 0981 by POLLY SMASON RT Amended: Links added.
[2018-09-19 20:24] VITALS: BP 121/67
[2018-09-19] MEDS: ZINC SULFATE 220 MG CAPSULE GT SCH (21:39)
[2018-09-19] MEDS: POLYETHYLENE GLYCOL 3350 17 GM POWD.PACK GT SCH (21:41)
[2018-09-19] MEDS: ATORVASTATIN 10 MG TABLET GT SCH (21:41)
[2018-09-19] MEDS: ENOXAPARIN SODIUM 40 MG/0.4 ML DISP.SYRIN SQ SCH (21:41)
[2018-09-20] MEDS: IPRATROPIUM NEB FS 0.5 MG/2.5 ML AMPUL.NEB NEB SCH ×4 (01:53→19:34)
[2018-09-20] MEDS: METHOCARBAMOL (750MG) 750 MG TABLET GT PRN (04:30)
[2018-09-20] MEDS: SUCRALFATE 1 G/10 ML UDC GT SCH ×4 (05:31→21:19)
[2018-09-20 07:30] VITALS: BP 133/69
[2018-09-20] MEDS: ACIDOPHILUS/BULGARICUS 1 EACH TAB.CHEW GT SCH ×3 (08:57→17:00)
[2018-09-20] MEDS: GABAPENTIN 250 MG/5 ML GT SCH ×3 (08:57→17:00)
[2018-09-20] MEDS: ESCITALOPRAM OXALATE (10 MG) 10 MG TABLET GT SCH (08:57)
[2018-09-20] MEDS: BACLOFEN (10 MG) 10 MG TABLET GT SCH ×4 (08:57→21:19)
[2018-09-20] MEDS: METHADONE HCL 10 MG TABLET GT SCH (08:58)
[2018-09-20] MEDS: HYDROGEL DRESSING 90 GM TUBE TP SCH ×4 (09:00→22:00)
[2018-09-20] MEDS: CADEXOMER IODINE 40 GM TUBE TP SCH ×2 (09:00→22:00)
[2018-09-20] MEDS: DAKINS QUARTER STRENGTH (0.125%) 480 ML BOTTLE TOP SCH ×4 (09:00→22:00)
[2018-09-20] MEDS: HYDROGEN PEROXIDE 480 ML BOTTLE TP SCH ×2 (09:00→21:47)
[2018-09-20] MEDS: CALCITRIOL 0.25 MCG CAPSULE PO SCH (09:02)
[2018-09-20] MEDS: HYDROCODONE/APAP 5/325MG 1 EACH TABLET GT SCH ×2 (09:02→21:19)
[2018-09-20] MEDS: ASCORBIC ACID 500 MG TABLET GT SCH ×2 (09:02→17:00)
[2018-09-20] MEDS: CALCIUM CARBONATE 500 MG TAB.CHEW GT SCH ×3 (09:02→17:00)
[2018-09-20] MEDS: PROSTAT (PYXIS) 30 ML UDC GT SCH ×3 (09:02→17:00)
[2018-09-20] MEDS: FAMOTIDINE (20 MG) 20 MG TABLET GT SCH ×2 (09:02→21:19)
[2018-09-20] MEDS: MULTIVIT W/MINERALS 1 TAB TABLET GT SCH (09:02)
[2018-09-20 19:49] VITALS: BP 109/66
[2018-09-20] MEDS: ZINC SULFATE 220 MG CAPSULE GT SCH (21:19)
[2018-09-20] MEDS: POLYETHYLENE GLYCOL 3350 17 GM POWD.PACK GT SCH (21:20)
[2018-09-20] MEDS: ENOXAPARIN SODIUM 40 MG/0.4 ML DISP.SYRIN SQ SCH (21:20)
[2018-09-20] MEDS: ATORVASTATIN 10 MG TABLET GT SCH (21:20)
[2018-09-21] MEDS: METHOCARBAMOL (750MG) 750 MG TABLET GT PRN (01:00)
[2018-09-21] MEDS: IPRATROPIUM NEB FS 0.5 MG/2.5 ML AMPUL.NEB NEB SCH ×4 (01:30→20:12)
[2018-09-21] MEDS: SUCRALFATE 1 G/10 ML UDC GT SCH ×4 (05:37→20:30)
[2018-09-21 07:35] VITALS: BP 118/75
[2018-09-21] MEDS: HYDROGEN PEROXIDE 480 ML BOTTLE TP SCH ×2 (07:42→21:00)
[2018-09-21] MEDS: ACIDOPHILUS/BULGARICUS 1 EACH TAB.CHEW GT SCH ×3 (08:55→16:40)
[2018-09-21] MEDS: HYDROCODONE/APAP 5/325MG 1 EACH TABLET GT SCH ×2 (08:55→21:45)
[2018-09-21] MEDS: FAMOTIDINE (20 MG) 20 MG TABLET GT SCH ×2 (08:55→21:45)
[2018-09-21] MEDS: BACLOFEN (10 MG) 10 MG TABLET GT SCH ×4 (08:55→21:45)
[2018-09-21] MEDS: GABAPENTIN 250 MG/5 ML GT SCH ×3 (08:55→16:40)
[2018-09-21] MEDS: METHADONE HCL 10 MG TABLET GT SCH (08:55)
[2018-09-21] MEDS: ESCITALOPRAM OXALATE (10 MG) 10 MG TABLET GT SCH (08:55)
[2018-09-21] MEDS: ASCORBIC ACID 500 MG TABLET GT SCH ×2 (08:56→16:38)
[2018-09-21] MEDS: MULTIVIT W/MINERALS 1 TAB TABLET GT SCH (08:56)
[2018-09-21] MEDS: CALCIUM CARBONATE 500 MG TAB.CHEW GT SCH ×3 (08:56→16:40)
[2018-09-21] MEDS: PROSTAT (PYXIS) 30 ML UDC GT SCH ×3 (08:56→16:40)
[2018-09-21] MEDS: CALCITRIOL 0.25 MCG CAPSULE PO SCH (08:56)
[2018-09-21] MEDS: HYDROGEL DRESSING 90 GM TUBE TP SCH ×4 (09:00→22:30)
[2018-09-21] MEDS: DAKINS QUARTER STRENGTH (0.125%) 480 ML BOTTLE TOP SCH ×2 (09:00→22:30)
[2018-09-21] MEDS: CADEXOMER IODINE 40 GM TUBE TP SCH ×2 (09:00→22:30)
--- NOTE | 2018-09-21 16:09 | NUR ---
RT NOTE: RECEIVED TRACH PT ON 28% COOL AEROSOL TRACH MASK. NO RESPIRATORY DISTRESS NOTED. TRACH CHECKED SECURE AND PATENT. SXD AND LAVAGED PT Q ROUND AND NEEDED. TXS GIVEN ORDERED WITH NO ADVERSE REACTIONS NOTED. TRACH CARE DONE. SPARE TRACH AND AMBU BAG @ BEDSIDE.
[2018-09-21 19:48] VITALS: BP 110/66
[2018-09-21] MEDS: ZINC SULFATE 220 MG CAPSULE GT SCH (21:45)
[2018-09-21] MEDS: ATORVASTATIN 10 MG TABLET GT SCH (21:46)
[2018-09-21] MEDS: POLYETHYLENE GLYCOL 3350 17 GM POWD.PACK GT SCH (21:46)
[2018-09-21] MEDS: ENOXAPARIN SODIUM 40 MG/0.4 ML DISP.SYRIN SQ SCH (21:46)
[2018-09-22] MEDS: IPRATROPIUM NEB FS 0.5 MG/2.5 ML AMPUL.NEB NEB SCH ×4 (02:14→19:19)
[2018-09-22] MEDS: SUCRALFATE 1 G/10 ML UDC GT SCH ×4 (05:45→20:30)
[2018-09-22 07:45] VITALS: BP 127/72
[2018-09-22] MEDS: GABAPENTIN 250 MG/5 ML GT SCH ×3 (08:11→16:51)
[2018-09-22] MEDS: FAMOTIDINE (20 MG) 20 MG TABLET GT SCH ×2 (08:12→21:39)
[2018-09-22] MEDS: PROSTAT (PYXIS) 30 ML UDC GT SCH ×3 (08:12→16:51)
[2018-09-22] MEDS: CALCIUM CARBONATE 500 MG TAB.CHEW GT SCH ×3 (08:12→16:51)
[2018-09-22] MEDS: ASCORBIC ACID 500 MG TABLET GT SCH ×2 (08:12→16:51)
[2018-09-22] MEDS: ACIDOPHILUS/BULGARICUS 1 EACH TAB.CHEW GT SCH ×3 (08:12→16:51)
[2018-09-22] MEDS: CALCITRIOL 0.25 MCG CAPSULE PO SCH (08:12)
[2018-09-22] MEDS: MULTIVIT W/MINERALS 1 TAB TABLET GT SCH (08:12)
[2018-09-22] MEDS: METHADONE HCL 10 MG TABLET GT SCH (08:12)
[2018-09-22] MEDS: BACLOFEN (10 MG) 10 MG TABLET GT SCH ×4 (08:12→21:37)
[2018-09-22] MEDS: ESCITALOPRAM OXALATE (10 MG) 10 MG TABLET GT SCH (08:12)
[2018-09-22] MEDS: HYDROGEN PEROXIDE 480 ML BOTTLE TP SCH ×2 (09:00→21:39)
[2018-09-22] MEDS: HYDROCODONE/APAP 5/325MG 1 EACH TABLET GT SCH ×2 (10:00→21:38)
[2018-09-22] MEDS: HYDROGEL DRESSING 90 GM TUBE TP SCH ×4 (10:30→21:39)
[2018-09-22] MEDS: CADEXOMER IODINE 40 GM TUBE TP SCH ×2 (10:30→21:39)
[2018-09-22] MEDS: DAKINS QUARTER STRENGTH (0.125%) 480 ML BOTTLE TOP SCH ×2 (10:30→21:39)
[2018-09-22 19:49] VITALS: BP 120/61
[2018-09-22] MEDS: POLYETHYLENE GLYCOL 3350 17 GM POWD.PACK GT SCH (21:39)
[2018-09-22] MEDS: ZINC SULFATE 220 MG CAPSULE GT SCH (21:39)
[2018-09-22] MEDS: ENOXAPARIN SODIUM 40 MG/0.4 ML DISP.SYRIN SQ SCH (21:39)
[2018-09-22] MEDS: ATORVASTATIN 10 MG TABLET GT SCH (21:39)
[2018-09-23] MEDS: IPRATROPIUM NEB FS 0.5 MG/2.5 ML AMPUL.NEB NEB SCH ×4 (00:51→19:36)
[2018-09-23] MEDS: HYDROCODONE/APAP 10/325MG 1 EA TABLET PO PRN (03:57)
[2018-09-23] MEDS: SUCRALFATE 1 G/10 ML UDC GT SCH ×4 (06:38→20:50)
[2018-09-23 07:57] VITALS: BP 121/77
[2018-09-23] MEDS: GABAPENTIN 250 MG/5 ML GT SCH ×3 (08:44→16:39)
[2018-09-23] MEDS: ACIDOPHILUS/BULGARICUS 1 EACH TAB.CHEW GT SCH ×3 (08:44→16:39)
[2018-09-23] MEDS: ESCITALOPRAM OXALATE (10 MG) 10 MG TABLET GT SCH (08:44)
[2018-09-23] MEDS: BACLOFEN (10 MG) 10 MG TABLET GT SCH ×4 (08:44→20:50)
[2018-09-23] MEDS: CALCIUM CARBONATE 500 MG TAB.CHEW GT SCH ×3 (08:45→16:39)
[2018-09-23] MEDS: METHADONE HCL 10 MG TABLET GT SCH (08:45)
[2018-09-23] MEDS: FAMOTIDINE (20 MG) 20 MG TABLET GT SCH ×2 (08:45→20:50)
[2018-09-23] MEDS: ASCORBIC ACID 500 MG TABLET GT SCH ×2 (08:45→16:39)
[2018-09-23] MEDS: CALCITRIOL 0.25 MCG CAPSULE PO SCH (08:45)
[2018-09-23] MEDS: MULTIVIT W/MINERALS 1 TAB TABLET GT SCH (08:45)
[2018-09-23] MEDS: PROSTAT (PYXIS) 30 ML UDC GT SCH ×3 (08:45→16:39)
[2018-09-23] MEDS: HYDROGEN PEROXIDE 480 ML BOTTLE TP SCH ×2 (09:00→21:00)
[2018-09-23] MEDS: HYDROCODONE/APAP 5/325MG 1 EACH TABLET GT SCH ×2 (10:20→20:50)
[2018-09-23] MEDS: HYDROGEL DRESSING 90 GM TUBE TP SCH ×4 (11:00→21:23)
[2018-09-23] MEDS: DAKINS QUARTER STRENGTH (0.125%) 480 ML BOTTLE TOP SCH ×2 (11:00→21:23)
[2018-09-23 19:59] VITALS: BP 116/71
[2018-09-23] MEDS: ZINC SULFATE 220 MG CAPSULE GT SCH (20:50)
[2018-09-23] MEDS: ENOXAPARIN SODIUM 40 MG/0.4 ML DISP.SYRIN SQ SCH (20:53)
[2018-09-23] MEDS: ATORVASTATIN 10 MG TABLET GT SCH (21:23)
[2018-09-23] MEDS: POLYETHYLENE GLYCOL 3350 17 GM POWD.PACK GT SCH (21:23)
[2018-09-24] MEDS: IPRATROPIUM NEB FS 0.5 MG/2.5 ML AMPUL.NEB NEB SCH ×4 (01:53→19:19)
[2018-09-24] MEDS: SUCRALFATE 1 G/10 ML UDC GT SCH ×4 (05:37→20:54)
[2018-09-24 08:01] VITALS: BP 128/71
[2018-09-24] MEDS: HYDROGEN PEROXIDE 480 ML BOTTLE TP SCH ×2 (09:00→20:59)
[2018-09-24] MEDS: GABAPENTIN 250 MG/5 ML GT SCH ×3 (09:17→17:09)
[2018-09-24] MEDS: ESCITALOPRAM OXALATE (10 MG) 10 MG TABLET GT SCH (09:17)
[2018-09-24] MEDS: ACIDOPHILUS/BULGARICUS 1 EACH TAB.CHEW GT SCH ×3 (09:17→17:09)
[2018-09-24] MEDS: BACLOFEN (10 MG) 10 MG TABLET GT SCH ×4 (09:17→20:58)
[2018-09-24] MEDS: METHADONE HCL 10 MG TABLET GT SCH (09:19)
[2018-09-24] MEDS: CALCITRIOL 0.25 MCG CAPSULE PO SCH (09:20)
[2018-09-24] MEDS: FAMOTIDINE (20 MG) 20 MG TABLET GT SCH ×2 (09:20→20:59)
[2018-09-24] MEDS: PROSTAT (PYXIS) 30 ML UDC GT SCH ×3 (09:20→17:09)
[2018-09-24] MEDS: HYDROCODONE/APAP 5/325MG 1 EACH TABLET GT SCH ×2 (09:20→20:59)
[2018-09-24] MEDS: MULTIVIT W/MINERALS 1 TAB TABLET GT SCH (09:20)
[2018-09-24] MEDS: CALCIUM CARBONATE 500 MG TAB.CHEW GT SCH ×3 (09:20→17:09)
[2018-09-24] MEDS: ASCORBIC ACID 500 MG TABLET GT SCH ×2 (09:20→17:09)
[2018-09-24] MEDS: HYDROGEL DRESSING 90 GM TUBE TP SCH ×4 (10:20→20:59)
[2018-09-24] MEDS: DAKINS QUARTER STRENGTH (0.125%) 480 ML BOTTLE TOP SCH ×2 (10:20→20:59)
[2018-09-24 19:43] VITALS: BP 103/64
[2018-09-24 19:50] VITALS: BP 103/64
[2018-09-24] MEDS: ZINC SULFATE 220 MG CAPSULE GT SCH (20:59)
[2018-09-24] MEDS: ENOXAPARIN SODIUM 40 MG/0.4 ML DISP.SYRIN SQ SCH (21:01)
[2018-09-24] MEDS: POLYETHYLENE GLYCOL 3350 17 GM POWD.PACK GT SCH (22:04)
[2018-09-24] MEDS: ATORVASTATIN 10 MG TABLET GT SCH (22:04)
[2018-09-25] MEDS: IPRATROPIUM NEB FS 0.5 MG/2.5 ML AMPUL.NEB NEB SCH ×4 (01:53→19:25)
[2018-09-25] MEDS: SUCRALFATE 1 G/10 ML UDC GT SCH ×4 (05:35→21:05)
[2018-09-25 07:41] VITALS: BP 128/65
[2018-09-25] MEDS: FAMOTIDINE (20 MG) 20 MG TABLET GT SCH ×2 (08:39→21:07)
[2018-09-25] MEDS: METHADONE HCL 10 MG TABLET GT SCH (08:39)
[2018-09-25] MEDS: BACLOFEN (10 MG) 10 MG TABLET GT SCH ×4 (08:39→21:05)
[2018-09-25] MEDS: ESCITALOPRAM OXALATE (10 MG) 10 MG TABLET GT SCH (08:39)
[2018-09-25] MEDS: ACIDOPHILUS/BULGARICUS 1 EACH TAB.CHEW GT SCH ×3 (08:39→16:27)
[2018-09-25] MEDS: GABAPENTIN 250 MG/5 ML GT SCH ×3 (08:39→16:27)
[2018-09-25] MEDS: PROSTAT (PYXIS) 30 ML UDC GT SCH ×3 (08:39→16:27)
[2018-09-25] MEDS: CALCITRIOL 0.25 MCG CAPSULE PO SCH (08:40)
[2018-09-25] MEDS: CALCIUM CARBONATE 500 MG TAB.CHEW GT SCH ×3 (08:40→16:27)
[2018-09-25] MEDS: MULTIVIT W/MINERALS 1 TAB TABLET GT SCH (08:40)
[2018-09-25] MEDS: ASCORBIC ACID 500 MG TABLET GT SCH ×2 (08:40→16:27)
[2018-09-25] MEDS: HYDROGEN PEROXIDE 480 ML BOTTLE TP SCH ×2 (09:00→21:08)
[2018-09-25] MEDS: HYDROCODONE/APAP 5/325MG 1 EACH TABLET GT SCH ×2 (10:30→21:07)
--- NOTE | 2018-09-25 10:43 | NUR ---
Invitation to Family Support Group: SW called patients responsible constitution party/ sister, Vilma Marley [phone] to invite them to attend the family support group being held tomorrow September 26, 2018 from 11 am-12pm in the old admin. conference room in the first floor. The call went to voicemail and SW left the above stated information for family as well as SW contact information.
[2018-09-25] MEDS: DAKINS QUARTER STRENGTH (0.125%) 480 ML BOTTLE TOP SCH ×2 (11:00→21:08)
[2018-09-25] MEDS: HYDROGEL DRESSING 90 GM TUBE TP SCH ×4 (11:00→21:08)
[2018-09-25 19:55] VITALS: BP 98/56
[2018-09-25] MEDS: ZINC SULFATE 220 MG CAPSULE GT SCH (21:07)
[2018-09-25] MEDS: ENOXAPARIN SODIUM 40 MG/0.4 ML DISP.SYRIN SQ SCH (21:07)
[2018-09-25] MEDS: POLYETHYLENE GLYCOL 3350 17 GM POWD.PACK GT SCH (21:08)
[2018-09-25] MEDS: ATORVASTATIN 10 MG TABLET GT SCH (21:08)
[2018-09-26] MEDS: IPRATROPIUM NEB FS 0.5 MG/2.5 ML AMPUL.NEB NEB SCH ×4 (01:44→19:42)
[2018-09-26] MEDS: HYDROCODONE/APAP 10/325MG 1 EA TABLET PO PRN ×2 (03:20→16:13)
[2018-09-26] MEDS: SUCRALFATE 1 G/10 ML UDC GT SCH ×4 (05:32→21:26)
[2018-09-26 07:53] VITALS: BP 105/57
[2018-09-26] MEDS: HYDROGEN PEROXIDE 480 ML BOTTLE TP SCH ×2 (08:37→21:11)
[2018-09-26] MEDS: ACIDOPHILUS/BULGARICUS 1 EACH TAB.CHEW GT SCH ×3 (09:17→16:09)
[2018-09-26] MEDS: ESCITALOPRAM OXALATE (10 MG) 10 MG TABLET GT SCH (09:17)
[2018-09-26] MEDS: GABAPENTIN 250 MG/5 ML GT SCH ×3 (09:17→16:09)
[2018-09-26] MEDS: METHADONE HCL 10 MG TABLET GT SCH (09:20)
[2018-09-26] MEDS: BACLOFEN (10 MG) 10 MG TABLET GT SCH ×4 (09:20→21:26)
[2018-09-26] MEDS: FAMOTIDINE (20 MG) 20 MG TABLET GT SCH ×2 (09:21→21:26)
[2018-09-26] MEDS: ASCORBIC ACID 500 MG TABLET GT SCH ×2 (09:21→16:09)
[2018-09-26] MEDS: CALCIUM CARBONATE 500 MG TAB.CHEW GT SCH ×3 (09:21→16:09)
[2018-09-26] MEDS: MULTIVIT W/MINERALS 1 TAB TABLET GT SCH (09:21)
[2018-09-26] MEDS: HYDROCODONE/APAP 5/325MG 1 EACH TABLET GT SCH ×2 (09:21→21:26)
[2018-09-26] MEDS: PROSTAT (PYXIS) 30 ML UDC GT SCH ×3 (09:21→16:09)
[2018-09-26] MEDS: CALCITRIOL 0.25 MCG CAPSULE PO SCH (09:21)
[2018-09-26] MEDS: HYDROGEL DRESSING 90 GM TUBE TP SCH ×4 (10:21→22:00)
[2018-09-26] MEDS: DAKINS QUARTER STRENGTH (0.125%) 480 ML BOTTLE TOP SCH ×2 (10:21→22:00)
[2018-09-26 19:51] VITALS: BP 116/65
[2018-09-26] MEDS: ZINC SULFATE 220 MG CAPSULE GT SCH (21:26)
[2018-09-26] MEDS: ENOXAPARIN SODIUM 40 MG/0.4 ML DISP.SYRIN SQ SCH (21:27)
[2018-09-26] MEDS: ATORVASTATIN 10 MG TABLET GT SCH (21:27)
[2018-09-26] MEDS: POLYETHYLENE GLYCOL 3350 17 GM POWD.PACK GT SCH (21:27)
[2018-09-27] MEDS: IPRATROPIUM NEB FS 0.5 MG/2.5 ML AMPUL.NEB NEB SCH ×4 (01:28→19:00)
[2018-09-27] MEDS: SUCRALFATE 1 G/10 ML UDC GT SCH ×4 (05:46→20:30)
--- NOTE | 2018-09-27 07:25 | NUR ---
Jackman cath balloon popped out. Inserted a new Jackman cath Sami 16/10 cc balloon. Tolerated well, no complain of pain. Yellow output noted. Will continue to monitor.
[2018-09-27 07:49] VITALS: BP 141/79
[2018-09-27] MEDS: HYDROGEN PEROXIDE 480 ML BOTTLE TP SCH ×2 (07:51→21:00)
[2018-09-27] MEDS: BACLOFEN (10 MG) 10 MG TABLET GT SCH ×4 (08:21→21:00)
[2018-09-27] MEDS: ESCITALOPRAM OXALATE (10 MG) 10 MG TABLET GT SCH (08:21)
[2018-09-27] MEDS: FAMOTIDINE (20 MG) 20 MG TABLET GT SCH ×2 (08:21→21:00)
[2018-09-27] MEDS: CALCITRIOL 0.25 MCG CAPSULE PO SCH (08:21)
[2018-09-27] MEDS: ASCORBIC ACID 500 MG TABLET GT SCH ×2 (08:21→17:45)
[2018-09-27] MEDS: MULTIVIT W/MINERALS 1 TAB TABLET GT SCH (08:21)
[2018-09-27] MEDS: METHADONE HCL 10 MG TABLET GT SCH (08:21)
[2018-09-27] MEDS: ACIDOPHILUS/BULGARICUS 1 EACH TAB.CHEW GT SCH ×3 (08:21→17:45)
[2018-09-27] MEDS: GABAPENTIN 250 MG/5 ML GT SCH ×3 (08:21→17:45)
[2018-09-27] MEDS: CALCIUM CARBONATE 500 MG TAB.CHEW GT SCH ×3 (08:21→17:45)
[2018-09-27] MEDS: PROSTAT (PYXIS) 30 ML UDC GT SCH ×3 (08:21→17:45)
[2018-09-27] MEDS: HYDROCODONE/APAP 5/325MG 1 EACH TABLET GT SCH ×2 (10:30→21:00)
[2018-09-27] MEDS: HYDROGEL DRESSING 90 GM TUBE TP SCH ×4 (11:00→21:00)
[2018-09-27] MEDS: DAKINS QUARTER STRENGTH (0.125%) 480 ML BOTTLE TOP SCH ×2 (11:00→21:00)
[2018-09-27 19:44] VITALS: BP 122/75
[2018-09-27] MEDS: ZINC SULFATE 220 MG CAPSULE GT SCH (21:00)
[2018-09-27] MEDS: ENOXAPARIN SODIUM 40 MG/0.4 ML DISP.SYRIN SQ SCH (21:00)
[2018-09-27] MEDS: POLYETHYLENE GLYCOL 3350 17 GM POWD.PACK GT SCH (22:14)
[2018-09-27] MEDS: ATORVASTATIN 10 MG TABLET GT SCH (22:14)
[2018-09-28] MEDS: IPRATROPIUM NEB FS 0.5 MG/2.5 ML AMPUL.NEB NEB SCH ×4 (01:10→19:49)
[2018-09-28] MEDS: SUCRALFATE 1 G/10 ML UDC GT SCH ×4 (06:38→21:08)
[2018-09-28 07:49] VITALS: BP 102/69
[2018-09-28] MEDS: HYDROGEN PEROXIDE 480 ML BOTTLE TP SCH ×2 (09:08→20:45)
[2018-09-28] MEDS: ACIDOPHILUS/BULGARICUS 1 EACH TAB.CHEW GT SCH ×3 (09:14→17:44)
[2018-09-28] MEDS: PROSTAT (PYXIS) 30 ML UDC GT SCH ×3 (09:14→17:44)
[2018-09-28] MEDS: METHADONE HCL 10 MG TABLET GT SCH (09:14)
[2018-09-28] MEDS: CALCIUM CARBONATE 500 MG TAB.CHEW GT SCH ×3 (09:14→17:44)
[2018-09-28] MEDS: BACLOFEN (10 MG) 10 MG TABLET GT SCH ×4 (09:14→21:08)
[2018-09-28] MEDS: FAMOTIDINE (20 MG) 20 MG TABLET GT SCH ×2 (09:14→21:09)
[2018-09-28] MEDS: ESCITALOPRAM OXALATE (10 MG) 10 MG TABLET GT SCH (09:14)
[2018-09-28] MEDS: ASCORBIC ACID 500 MG TABLET GT SCH ×2 (09:17→17:44)
[2018-09-28] MEDS: CALCITRIOL 0.25 MCG CAPSULE PO SCH (09:17)
[2018-09-28] MEDS: MULTIVIT W/MINERALS 1 TAB TABLET GT SCH (09:19)
[2018-09-28] MEDS: GABAPENTIN 250 MG/5 ML GT SCH ×3 (09:19→17:44)
[2018-09-28] MEDS: HYDROCODONE/APAP 5/325MG 1 EACH TABLET GT SCH ×2 (10:15→22:00)
[2018-09-28] MEDS: HYDROGEL DRESSING 90 GM TUBE TP SCH ×4 (11:00→22:30)
[2018-09-28] MEDS: DAKINS QUARTER STRENGTH (0.125%) 480 ML BOTTLE TOP SCH ×2 (11:00→22:30)
--- NOTE | 2018-09-28 17:20 | NUR ---
RT NOTES TRACH TUBE IN PLACE, PATENT, AND SECURED WITH TRACH TIE.PLACED ON C/A, CUFF DEFLATED, AND PMV ON. TOLERATE WELL. VENT PLUGGED IN TO RED OUTLET. AMBU BAG AND BACK UP TRACH BY THE BEDSIDE. NO RESP DISTRESS AT THIS TIME. Addendum: 09/28/18 at 1721 by JERONIMO YOUNG RT Amended: Links added.
[2018-09-28 19:45] VITALS: BP 126/83
[2018-09-28] MEDS: ZINC SULFATE 220 MG CAPSULE GT SCH (21:09)
[2018-09-28] MEDS: ENOXAPARIN SODIUM 40 MG/0.4 ML DISP.SYRIN SQ SCH (21:10)
[2018-09-28] MEDS: ATORVASTATIN 10 MG TABLET GT SCH (21:10)
[2018-09-28] MEDS: POLYETHYLENE GLYCOL 3350 17 GM POWD.PACK GT SCH (21:10)
[2018-09-29] MEDS: METHOCARBAMOL (750MG) 750 MG TABLET GT PRN (00:14)
[2018-09-29] MEDS: IPRATROPIUM NEB FS 0.5 MG/2.5 ML AMPUL.NEB NEB SCH ×4 (01:29→20:25)
[2018-09-29] MEDS: SUCRALFATE 1 G/10 ML UDC GT SCH ×4 (05:41→21:14)
[2018-09-29 08:14] VITALS: BP 125/80
[2018-09-29] MEDS: HYDROGEN PEROXIDE 480 ML BOTTLE TP SCH ×2 (09:00→20:26)
[2018-09-29] MEDS: ASCORBIC ACID 500 MG TABLET GT SCH ×2 (09:24→17:42)
[2018-09-29] MEDS: BACLOFEN (10 MG) 10 MG TABLET GT SCH ×4 (09:24→21:14)
[2018-09-29] MEDS: GABAPENTIN 250 MG/5 ML GT SCH ×3 (09:24→17:42)
[2018-09-29] MEDS: METHADONE HCL 10 MG TABLET GT SCH (09:24)
[2018-09-29] MEDS: PROSTAT (PYXIS) 30 ML UDC GT SCH ×3 (09:24→17:42)
[2018-09-29] MEDS: ACIDOPHILUS/BULGARICUS 1 EACH TAB.CHEW GT SCH ×3 (09:24→17:42)
[2018-09-29] MEDS: ESCITALOPRAM OXALATE (10 MG) 10 MG TABLET GT SCH (09:24)
[2018-09-29] MEDS: FAMOTIDINE (20 MG) 20 MG TABLET GT SCH ×2 (09:24→21:16)
[2018-09-29] MEDS: CALCIUM CARBONATE 500 MG TAB.CHEW GT SCH ×3 (09:24→17:42)
[2018-09-29] MEDS: CALCITRIOL 0.25 MCG CAPSULE PO SCH (09:24)
[2018-09-29] MEDS: MULTIVIT W/MINERALS 1 TAB TABLET GT SCH (09:25)
[2018-09-29] MEDS: HYDROCODONE/APAP 5/325MG 1 EACH TABLET GT SCH ×2 (10:30→21:14)
[2018-09-29] MEDS: DAKINS QUARTER STRENGTH (0.125%) 480 ML BOTTLE TOP SCH ×2 (11:05→21:57)
[2018-09-29] MEDS: HYDROGEL DRESSING 90 GM TUBE TP SCH ×4 (11:05→21:58)
[2018-09-29 21:01] VITALS: BP 100/62
[2018-09-29] MEDS: ZINC SULFATE 220 MG CAPSULE GT SCH (21:16)
[2018-09-29] MEDS: ENOXAPARIN SODIUM 40 MG/0.4 ML DISP.SYRIN SQ SCH (21:17)
[2018-09-29] MEDS: POLYETHYLENE GLYCOL 3350 17 GM POWD.PACK GT SCH (21:18)
[2018-09-29] MEDS: ATORVASTATIN 10 MG TABLET GT SCH (21:18)
[2018-09-30] MEDS: IPRATROPIUM NEB FS 0.5 MG/2.5 ML AMPUL.NEB NEB SCH ×4 (01:57→20:04)
--- NOTE | 2018-09-30 03:50 | NUR ---
PATIENT RECEIVED ON 28% AEROSOL T-COLLAR THEN PLACED BACK ON VENT SUPPORT WITH SETTINGS OF AC 12, 450 VT, 30%, +0. GIVEN IN-LINE TREATMENTS WITH NO ADVERSE REACTIONS. AMBU BAG AT BEDSIDE. VENT AND PULSE OX ALARMS AUDIBLE AND VISIBLE. Addendum: 09/30/18 at 0355 by ROLY BECERRIL RT Amended: Links added.
[2018-09-30] MEDS: SUCRALFATE 1 G/10 ML UDC GT SCH ×4 (05:41→20:24)
--- NOTE | 2018-09-30 06:01 | NUR ---
PATIENT PLACED BACK ON 28% AEROSOL T-COLLAR. SaO2 94% HR 67. NO DISTRESS/SOB NOTED. Addendum: 09/30/18 at 0602 by ROLY BECERRIL RT Amended: Links added.
[2018-09-30 07:56] VITALS: BP 116/75
[2018-09-30] MEDS: CALCIUM CARBONATE 500 MG TAB.CHEW GT SCH ×3 (09:24→17:31)
[2018-09-30] MEDS: METHADONE HCL 10 MG TABLET GT SCH (09:24)
[2018-09-30] MEDS: FAMOTIDINE (20 MG) 20 MG TABLET GT SCH ×2 (09:24→20:25)
[2018-09-30] MEDS: PROSTAT (PYXIS) 30 ML UDC GT SCH ×3 (09:24→17:31)
[2018-09-30] MEDS: BACLOFEN (10 MG) 10 MG TABLET GT SCH ×4 (09:24→20:24)
[2018-09-30] MEDS: CALCITRIOL 0.25 MCG CAPSULE PO SCH (09:24)
[2018-09-30] MEDS: ASCORBIC ACID 500 MG TABLET GT SCH ×2 (09:24→17:31)
[2018-09-30] MEDS: MULTIVIT W/MINERALS 1 TAB TABLET GT SCH (09:24)
[2018-09-30] MEDS: ESCITALOPRAM OXALATE (10 MG) 10 MG TABLET GT SCH (09:24)
[2018-09-30] MEDS: ACIDOPHILUS/BULGARICUS 1 EACH TAB.CHEW GT SCH ×3 (09:24→17:31)
[2018-09-30] MEDS: GABAPENTIN 250 MG/5 ML GT SCH ×3 (09:24→17:31)
[2018-09-30] MEDS: HYDROCODONE/APAP 5/325MG 1 EACH TABLET GT SCH ×2 (10:30→20:25)
[2018-09-30] MEDS: DAKINS QUARTER STRENGTH (0.125%) 480 ML BOTTLE TOP SCH ×2 (11:10→20:25)
[2018-09-30] MEDS: HYDROGEL DRESSING 90 GM TUBE TP SCH ×4 (11:10→20:25)
[2018-09-30 19:58] VITALS: BP 106/60
[2018-09-30] MEDS: ZINC SULFATE 220 MG CAPSULE GT SCH (20:25)
[2018-09-30] MEDS: ENOXAPARIN SODIUM 40 MG/0.4 ML DISP.SYRIN SQ SCH (21:11)
[2018-09-30] MEDS: HYDROGEN PEROXIDE 480 ML BOTTLE TP SCH (21:16)
[2018-09-30] MEDS: POLYETHYLENE GLYCOL 3350 17 GM POWD.PACK GT SCH (21:16)
[2018-09-30] MEDS: ATORVASTATIN 10 MG TABLET GT SCH (21:16)
[2018-09-30] MEDS: HYDROCODONE/APAP 5/325MG 1 EACH TABLET GT PRN (23:20)
[2018-10-01] MEDS: IPRATROPIUM NEB FS 0.5 MG/2.5 ML AMPUL.NEB NEB SCH ×4 (01:21→19:20)
[2018-10-01] MEDS: SUCRALFATE 1 G/10 ML UDC GT SCH ×4 (05:44→21:26)
[2018-10-01] MEDS: HYDROGEN PEROXIDE 480 ML BOTTLE TP SCH ×2 (09:00→21:28)
[2018-10-01] MEDS: METHADONE HCL 10 MG TABLET GT SCH (09:02)
[2018-10-01] MEDS: ACIDOPHILUS/BULGARICUS 1 EACH TAB.CHEW GT SCH ×3 (09:05→17:46)
[2018-10-01] MEDS: CALCITRIOL 0.25 MCG CAPSULE PO SCH (09:05)
[2018-10-01] MEDS: FAMOTIDINE (20 MG) 20 MG TABLET GT SCH ×2 (09:05→21:27)
[2018-10-01] MEDS: GABAPENTIN 250 MG/5 ML GT SCH ×3 (09:05→17:46)
[2018-10-01] MEDS: PROSTAT (PYXIS) 30 ML UDC GT SCH ×3 (09:05→17:47)
[2018-10-01] MEDS: ASCORBIC ACID 500 MG TABLET GT SCH ×2 (09:05→17:47)
[2018-10-01] MEDS: CALCIUM CARBONATE 500 MG TAB.CHEW GT SCH ×3 (09:05→17:47)
[2018-10-01] MEDS: ESCITALOPRAM OXALATE (10 MG) 10 MG TABLET GT SCH (09:05)
[2018-10-01] MEDS: BACLOFEN (10 MG) 10 MG TABLET GT SCH ×4 (09:05→21:26)
[2018-10-01] MEDS: MULTIVIT W/MINERALS 1 TAB TABLET GT SCH (09:05)
[2018-10-01] MEDS: HYDROCODONE/APAP 5/325MG 1 EACH TABLET GT SCH ×2 (10:30→21:27)
[2018-10-01] MEDS: HYDROGEL DRESSING 90 GM TUBE TP SCH ×4 (11:10→21:27)
[2018-10-01] MEDS: DAKINS QUARTER STRENGTH (0.125%) 480 ML BOTTLE TOP SCH ×2 (11:10→21:27)
[2018-10-01 11:28] VITALS: BP 126/70
--- NOTE | 2018-10-01 15:00 | NUR ---
Dr. Conroy seen and examined resident pressure ulcers. No new order given.
[2018-10-01 19:55] VITALS: BP 112/68
[2018-10-01] MEDS: ENOXAPARIN SODIUM 40 MG/0.4 ML DISP.SYRIN SQ SCH (21:27)
[2018-10-01] MEDS: ZINC SULFATE 220 MG CAPSULE GT SCH (21:27)
[2018-10-01] MEDS: POLYETHYLENE GLYCOL 3350 17 GM POWD.PACK GT SCH (21:28)
[2018-10-01] MEDS: ATORVASTATIN 10 MG TABLET GT SCH (21:28)
[2018-10-02] MEDS: IPRATROPIUM NEB FS 0.5 MG/2.5 ML AMPUL.NEB NEB SCH ×4 (01:40→19:20)
[2018-10-02] MEDS: SUCRALFATE 1 G/10 ML UDC GT SCH ×4 (06:35→21:13)
[2018-10-02] MEDS: ASCORBIC ACID 500 MG TABLET GT SCH ×2 (08:19→16:15)
[2018-10-02] MEDS: ACIDOPHILUS/BULGARICUS 1 EACH TAB.CHEW GT SCH ×3 (08:19→16:15)
[2018-10-02] MEDS: FAMOTIDINE (20 MG) 20 MG TABLET GT SCH ×2 (08:19→21:14)
[2018-10-02] MEDS: METHADONE HCL 10 MG TABLET GT SCH (08:19)
[2018-10-02] MEDS: BACLOFEN (10 MG) 10 MG TABLET GT SCH ×4 (08:19→21:13)
[2018-10-02] MEDS: GABAPENTIN 250 MG/5 ML GT SCH ×3 (08:19→16:15)
[2018-10-02] MEDS: CALCIUM CARBONATE 500 MG TAB.CHEW GT SCH ×3 (08:19→16:15)
[2018-10-02] MEDS: ESCITALOPRAM OXALATE (10 MG) 10 MG TABLET GT SCH (08:19)
[2018-10-02] MEDS: CALCITRIOL 0.25 MCG CAPSULE PO SCH (08:19)
[2018-10-02] MEDS: MULTIVIT W/MINERALS 1 TAB TABLET GT SCH (08:19)
[2018-10-02] MEDS: PROSTAT (PYXIS) 30 ML UDC GT SCH ×3 (08:19→16:15)
[2018-10-02] MEDS: HYDROGEN PEROXIDE 480 ML BOTTLE TP SCH ×2 (08:25→21:15)
[2018-10-02] MEDS: HYDROCODONE/APAP 5/325MG 1 EACH TABLET GT SCH ×2 (10:29→21:14)
[2018-10-02 10:45] VITALS: BP 136/67
[2018-10-02] MEDS: DAKINS QUARTER STRENGTH (0.125%) 480 ML BOTTLE TOP SCH ×2 (11:00→21:15)
[2018-10-02] MEDS: HYDROGEL DRESSING 90 GM TUBE TP SCH ×4 (11:00→21:15)
--- NOTE | 2018-10-02 15:13 | NUR ---
IDT Care Plan Conference Invitation to family: RAVI communicated pt.s Sister, Vilma Marley [phone] that the next IDT meeting will be taking place this October 05 from 12:30-1:30pm in the SA activities room. Per Vilma, she will be in attendance.
[2018-10-02 20:25] VITALS: BP 101/68
[2018-10-02] MEDS: ZINC SULFATE 220 MG CAPSULE GT SCH (21:14)
[2018-10-02] MEDS: POLYETHYLENE GLYCOL 3350 17 GM POWD.PACK GT SCH (21:15)
[2018-10-02] MEDS: ENOXAPARIN SODIUM 40 MG/0.4 ML DISP.SYRIN SQ SCH (21:15)
[2018-10-02] MEDS: ATORVASTATIN 10 MG TABLET GT SCH (21:15)
[2018-10-03] MEDS: IPRATROPIUM NEB FS 0.5 MG/2.5 ML AMPUL.NEB NEB SCH ×4 (01:08→19:58)
[2018-10-03] MEDS: SUCRALFATE 1 G/10 ML UDC GT SCH ×4 (05:58→21:23)
--- NOTE | 2018-10-03 08:30 | NUR ---
Seen and examined by Dr. Seaman with new order and carried out. Methadone increased dose to 10 mg BID via GT.
[2018-10-03] MEDS: DAKINS QUARTER STRENGTH (0.125%) 480 ML BOTTLE TOP SCH ×2 (09:00→21:58)
[2018-10-03] MEDS: HYDROGEL DRESSING 90 GM TUBE TP SCH ×4 (09:00→21:58)
[2018-10-03] MEDS: HYDROGEN PEROXIDE 480 ML BOTTLE TP SCH ×2 (09:00→19:58)
[2018-10-03] MEDS: BACLOFEN (10 MG) 10 MG TABLET GT SCH ×4 (09:40→21:23)
[2018-10-03] MEDS: ACIDOPHILUS/BULGARICUS 1 EACH TAB.CHEW GT SCH ×3 (09:40→16:41)
[2018-10-03] MEDS: ESCITALOPRAM OXALATE (10 MG) 10 MG TABLET GT SCH (09:40)
[2018-10-03] MEDS: GABAPENTIN 250 MG/5 ML GT SCH ×3 (09:40→16:44)
[2018-10-03] MEDS: FAMOTIDINE (20 MG) 20 MG TABLET GT SCH ×2 (09:41→21:24)
[2018-10-03] MEDS: PROSTAT (PYXIS) 30 ML UDC GT SCH ×3 (09:41→16:41)
[2018-10-03] MEDS: ASCORBIC ACID 500 MG TABLET GT SCH ×2 (09:41→16:41)
[2018-10-03] MEDS: MULTIVIT W/MINERALS 1 TAB TABLET GT SCH (09:41)
[2018-10-03] MEDS: CALCITRIOL 0.25 MCG CAPSULE PO SCH (09:41)
[2018-10-03] MEDS: CALCIUM CARBONATE 500 MG TAB.CHEW GT SCH ×3 (09:41→16:41)
[2018-10-03] MEDS: HYDROCODONE/APAP 5/325MG 1 EACH TABLET GT SCH ×2 (09:41→21:23)
[2018-10-03] MEDS: METHADONE HCL 10 MG TABLET GT SCH ×2 (09:55→16:41)
[2018-10-03 10:27] VITALS: BP 133/71
--- NOTE | 2018-10-03 13:00 | NUR ---
Seen and examined by Peggy Hoffman NP no new order given.
[2018-10-03] MEDS ORDERED: METHADONE HCL 10 MG TABLET GT SCH (17:00)
[2018-10-03 19:42] VITALS: BP 103/65
[2018-10-03] MEDS: POLYETHYLENE GLYCOL 3350 17 GM POWD.PACK GT SCH (21:24)
[2018-10-03] MEDS: ATORVASTATIN 10 MG TABLET GT SCH (21:24)
[2018-10-03] MEDS: ENOXAPARIN SODIUM 40 MG/0.4 ML DISP.SYRIN SQ SCH (21:24)
[2018-10-03] MEDS: ZINC SULFATE 220 MG CAPSULE GT SCH (21:24)
[2018-10-04] MEDS: IPRATROPIUM NEB FS 0.5 MG/2.5 ML AMPUL.NEB NEB SCH ×4 (02:12→20:24)
--- NOTE | 2018-10-04 03:24 | NUR ---
PATIENT RECEIVED ON 28% AEROSOL T-COLLAR THEN PLACED BACK ON TRACH TO VENT WITH SETTINGS OF AC 12, 450 VT, 30%, +0. AMBU BAG AT BEDSIDE. VENT AND PULSE OXIMETER ALARMS AUDIBLE AND VISIBLE. NO DISTRESS/SOB NOTED. Addendum: 10/04/18 at 0330 by ROLY BECERRIL RT Amended: Links added.
[2018-10-04] MEDS: METHOCARBAMOL (750MG) 750 MG TABLET GT PRN (05:57)
[2018-10-04] MEDS: SUCRALFATE 1 G/10 ML UDC GT SCH ×4 (05:57→20:48)
[2018-10-04 07:40] VITALS: BP 99/67
[2018-10-04] MEDS: HYDROGEN PEROXIDE 480 ML BOTTLE TP SCH ×2 (07:57→20:49)
[2018-10-04] MEDS: BACLOFEN (10 MG) 10 MG TABLET GT SCH ×4 (09:12→20:48)
[2018-10-04] MEDS: ACIDOPHILUS/BULGARICUS 1 EACH TAB.CHEW GT SCH ×3 (09:12→16:45)
[2018-10-04] MEDS: GABAPENTIN 250 MG/5 ML GT SCH ×3 (09:12→16:45)
[2018-10-04] MEDS: ESCITALOPRAM OXALATE (10 MG) 10 MG TABLET GT SCH (09:12)
[2018-10-04] MEDS: PROSTAT (PYXIS) 30 ML UDC GT SCH ×3 (09:13→16:46)
[2018-10-04] MEDS: CALCIUM CARBONATE 500 MG TAB.CHEW GT SCH ×3 (09:13→16:46)
[2018-10-04] MEDS: CALCITRIOL 0.25 MCG CAPSULE PO SCH (09:13)
[2018-10-04] MEDS: ASCORBIC ACID 500 MG TABLET GT SCH ×2 (09:13→16:46)
[2018-10-04] MEDS: METHADONE HCL 10 MG TABLET GT SCH ×2 (09:13→16:45)
[2018-10-04] MEDS: MULTIVIT W/MINERALS 1 TAB TABLET GT SCH (09:13)
[2018-10-04] MEDS: FAMOTIDINE (20 MG) 20 MG TABLET GT SCH ×2 (09:13→20:49)
[2018-10-04] MEDS: HYDROCODONE/APAP 5/325MG 1 EACH TABLET GT SCH ×2 (10:30→20:49)
[2018-10-04] MEDS: HYDROGEL DRESSING 90 GM TUBE TP SCH ×4 (11:15→20:49)
[2018-10-04] MEDS: NYSTATIN/TRIAMCIN 15 GM CREAM 15 GM TUBE TP SCH ×2 (11:15→20:50)
[2018-10-04] MEDS: DAKINS QUARTER STRENGTH (0.125%) 480 ML BOTTLE TOP SCH ×2 (11:15→20:49)
[2018-10-04 20:17] VITALS: BP 101/61
[2018-10-04] MEDS: ZINC SULFATE 220 MG CAPSULE GT SCH (20:49)
[2018-10-04] MEDS: ENOXAPARIN SODIUM 40 MG/0.4 ML DISP.SYRIN SQ SCH (20:49)
[2018-10-04] MEDS: ATORVASTATIN 10 MG TABLET GT SCH (21:07)
[2018-10-04] MEDS: POLYETHYLENE GLYCOL 3350 17 GM POWD.PACK GT SCH (21:07)
--- NOTE | 2018-10-04 21:18 | NUR ---
Seen and examined by Peggy Hoffman,informed her regarding temp 99.4 and low urine output.New orders to do UA,CBC and BMP in Am.Will carried out orders.
--- NOTE | 2018-10-05 00:31 | NUR ---
pt rec'd on cool aerosol, pt placed on mech vent per md orders. no resp distress or sob noted. pt sx'd for mod amt of pale yellow secretions. trach is patent and secured. alarms are set and audible. vent plugged into red outlet. ambu bag bedside. will continue to monitor. Addendum: 10/05/18 at 0033 by CAITLIN SOTO RT Amended: Links added.
[2018-10-05] MEDS: IPRATROPIUM NEB FS 0.5 MG/2.5 ML AMPUL.NEB NEB SCH ×4 (01:30→19:47)
[2018-10-05] MEDS: METHOCARBAMOL (750MG) 750 MG TABLET GT PRN ×2 (05:32→22:38)
[2018-10-05] MEDS: SUCRALFATE 1 G/10 ML UDC GT SCH ×4 (05:32→20:20)
[2018-10-05 06:27] LABS: APPEARANCE,URINE CLOUDY (CLEAR); BILIRUBIN,URINE NEGATIVE (NEGATIVE); BLOOD, URINE 1+ Ery/uL (NEGATIVE); COLOR,URINE YELLOW (YELLOW); KETONES,URINE NEGATIVE (NEGATIVE); LEUKOCYTE ESTERASE ,URINE 3+ (NEGATIVE); NITRITE, URINE POSITIVE (NEGATIVE); PH,URINE 7.5 (5.0-8.0); PROTEIN,URINE TRACE mg/dl (NEGATIVE); UGLUCOSE NEGATIVE (NEGATIVE); UROBILINOGEN,URINE 0.2 EU/dL (0.2)
[2018-10-05 06:33] LABS: BACTERIA,URINE Few /HPF (None Seen); CALCIUM OXALATE CRYSTALS,UR Few /HPF (None Seen); SQUAMOUS EPITHELIAL CELL,UR Few /HPF (None Seen); WBC,URINE TOO NUMEROUS TO COUN /HPF (0-3)
[2018-10-05 07:17] LABS: BASOPHILS % (AUTO) 0.3 % (0.0-2.0); EOSINOPHILS % (AUTO) 2.5 % (0.0-6.0); HEMATOCRIT 30 % (39-51); HEMOGLOBIN 9.3 g/dL (13.5-17.5); LYMPHOCYTES # (AUTO) 1.5 /CMM (0.8-4.8); LYMPHOCYTES % (AUTO) 17.1 % (20.0-44.0); MEAN CORPUSCULAR HGB CONC 31 g/dl (31.0-36.0); MEAN CORPUSCULAR VOLUME 75 fL (80-96); MONOCYTES # (AUTO) 0.7 /CMM (0.1-1.30); MONOCYTES % (AUTO) 8.3 % (2.0-12.0); NEUTROPHILS # (AUTO) 6.4 /CMM (1.8-8.9); NEUTROPHILS % (AUTO) 71.8 % (43.0-81.0); PLATELET COUNT (AUTO) 430 /CMM (150-450); WHITE BLOOD COUNT (AUTO) 8.9 K/uL (4.3-11.0)
[2018-10-05 08:02] VITALS: BP 112/73
[2018-10-05] MEDS: HYDROGEL DRESSING 90 GM TUBE TP SCH ×4 (09:00→20:21)
[2018-10-05] MEDS: DAKINS QUARTER STRENGTH (0.125%) 480 ML BOTTLE TOP SCH ×2 (09:00→20:21)
[2018-10-05] MEDS: HYDROGEN PEROXIDE 480 ML BOTTLE TP SCH ×2 (09:00→20:21)
[2018-10-05] MEDS: NYSTATIN/TRIAMCIN 15 GM CREAM 15 GM TUBE TP SCH ×2 (09:00→20:21)
[2018-10-05 09:01] LABS: CALCIUM, SERUM 8.6 mg/dL (8.5-10.1); CREATININE 0.8 mg/dL (0.6-1.3); POTASSIUM 4.1 mmol/L (3.5-5.1)
[2018-10-05] MEDS: ESCITALOPRAM OXALATE (10 MG) 10 MG TABLET GT SCH (09:18)
[2018-10-05] MEDS: ACIDOPHILUS/BULGARICUS 1 EACH TAB.CHEW GT SCH ×3 (09:18→16:26)
[2018-10-05] MEDS: GABAPENTIN 250 MG/5 ML GT SCH ×3 (09:18→16:25)
[2018-10-05] MEDS: BACLOFEN (10 MG) 10 MG TABLET GT SCH ×4 (09:18→20:20)
[2018-10-05] MEDS: METHADONE HCL 10 MG TABLET GT SCH ×2 (09:19→16:28)
[2018-10-05] MEDS: MULTIVIT W/MINERALS 1 TAB TABLET GT SCH (09:20)
[2018-10-05] MEDS: HYDROCODONE/APAP 5/325MG 1 EACH TABLET GT SCH ×2 (09:20→20:20)
[2018-10-05] MEDS: FAMOTIDINE (20 MG) 20 MG TABLET GT SCH ×2 (09:20→20:20)
[2018-10-05] MEDS: CALCIUM CARBONATE 500 MG TAB.CHEW GT SCH ×3 (09:20→16:28)
[2018-10-05] MEDS: ASCORBIC ACID 500 MG TABLET GT SCH ×2 (09:20→16:28)
[2018-10-05] MEDS: PROSTAT (PYXIS) 30 ML UDC GT SCH ×3 (09:20→16:28)
[2018-10-05] MEDS: CALCITRIOL 0.25 MCG CAPSULE PO SCH (09:20)
--- NOTE | 2018-10-05 13:00 | NUR ---
Sputum culture result relayed to Dr Ugarte. No new order.
--- NOTE | 2018-10-05 15:06 | NUR ---
INTERDISCIPLINARY TEAM PLAN OF CARE CONFERENCE was held today. The patient's responsible democrat/sister, Vilma Marley [phone] attended and participated in IDT. Dr. Ugarte and interdisciplinary team discussed the current plan of care in detail. Dr. Ugarte and IDT answered all of Tank questions. Current orders as well as treatments and medications were reviewed. Charge nurse discussed Methadone increased dose to 10 mg BID via GT. Charge nurse discussed pt.s recent slightly elevated temperature and UA CBC/BMP lab results have been ordered. See other discipline's IDT notes for further details.
[2018-10-05] MEDS: ZINC SULFATE 220 MG CAPSULE GT SCH (20:20)
[2018-10-05] MEDS: ENOXAPARIN SODIUM 40 MG/0.4 ML DISP.SYRIN SQ SCH (20:21)
[2018-10-05 20:38] VITALS: BP 112/72
[2018-10-05] MEDS: POLYETHYLENE GLYCOL 3350 17 GM POWD.PACK GT SCH (21:08)
[2018-10-05] MEDS: ATORVASTATIN 10 MG TABLET GT SCH (21:08)
[2018-10-05] MEDS: ACETAMINOPHEN 650 MG/20 ML UDC- SA PATIENTS-PAIN ONLY GT PRN (22:39)
[2018-10-06] MEDS: HYDROCODONE/APAP 10/325MG 1 EA TABLET PO PRN (00:18)
--- NOTE | 2018-10-06 00:18 | NUR ---
Pt rec'd on cool aerosol and placed on mech vent per md orders. no resp distress or sob noted. trach is patent and secured. sx'd for mod amt of pale yellow secretions. alarms are set and audible. vent plugged into red outlet. ambu bag bedside. will continue to monitor. Addendum: 10/06/18 at 0020 by CAITLIN SOTO RT Amended: Links added.
[2018-10-06] MEDS: IPRATROPIUM NEB FS 0.5 MG/2.5 ML AMPUL.NEB NEB SCH ×4 (01:50→19:16)
[2018-10-06] MEDS: SUCRALFATE 1 G/10 ML UDC GT SCH ×4 (07:19→21:14)
[2018-10-06 07:57] VITALS: BP 143/79
[2018-10-06] MEDS: ESCITALOPRAM OXALATE (10 MG) 10 MG TABLET GT SCH (08:46)
[2018-10-06] MEDS: GABAPENTIN 250 MG/5 ML GT SCH ×3 (08:46→17:00)
[2018-10-06] MEDS: BACLOFEN (10 MG) 10 MG TABLET GT SCH ×4 (08:46→21:15)
[2018-10-06] MEDS: ACIDOPHILUS/BULGARICUS 1 EACH TAB.CHEW GT SCH ×3 (08:46→17:00)
[2018-10-06] MEDS: METHADONE HCL 10 MG TABLET GT SCH ×2 (08:47→17:00)
[2018-10-06] MEDS: MULTIVIT W/MINERALS 1 TAB TABLET GT SCH (08:47)
[2018-10-06] MEDS: PROSTAT (PYXIS) 30 ML UDC GT SCH ×3 (08:47→17:00)
[2018-10-06] MEDS: FAMOTIDINE (20 MG) 20 MG TABLET GT SCH ×2 (08:47→21:15)
[2018-10-06] MEDS: CALCIUM CARBONATE 500 MG TAB.CHEW GT SCH ×3 (08:48→17:00)
[2018-10-06] MEDS: ASCORBIC ACID 500 MG TABLET GT SCH ×2 (08:48→17:00)
[2018-10-06] MEDS: CALCITRIOL 0.25 MCG CAPSULE PO SCH (08:48)
[2018-10-06] MEDS: HYDROGEN PEROXIDE 480 ML BOTTLE TP SCH ×2 (09:00→21:14)
[2018-10-06] MEDS: HYDROCODONE/APAP 5/325MG 1 EACH TABLET GT SCH ×2 (10:30→21:15)
[2018-10-06] MEDS: NYSTATIN/TRIAMCIN 15 GM CREAM 15 GM TUBE TP SCH ×2 (11:30→21:17)
[2018-10-06] MEDS: HYDROGEL DRESSING 90 GM TUBE TP SCH ×4 (11:30→21:17)
[2018-10-06] MEDS: DAKINS QUARTER STRENGTH (0.125%) 480 ML BOTTLE TOP SCH ×2 (12:30→21:17)
[2018-10-06] MEDS: METHOCARBAMOL (750MG) 750 MG TABLET GT PRN (12:33)
--- NOTE | 2018-10-06 16:00 | NUR ---
Resident noted redness with dark purplish discoloration in the R lateral thigh and scrotum area. No open skin. New treatment order initiated to protect the area with Mepilex. Resident informed. Wound consult obtain from
[2018-10-06 20:02] VITALS: BP 107/67
[2018-10-06] MEDS: ZINC OXIDE 30 GM TUBE TP SCH (21:00)
[2018-10-06] MEDS: ZINC SULFATE 220 MG CAPSULE GT SCH (21:15)
[2018-10-06] MEDS: ENOXAPARIN SODIUM 40 MG/0.4 ML DISP.SYRIN SQ SCH (21:16)
[2018-10-06] MEDS: ATORVASTATIN 10 MG TABLET GT SCH (21:17)
[2018-10-06] MEDS: POLYETHYLENE GLYCOL 3350 17 GM POWD.PACK GT SCH (21:17)
[2018-10-06] MEDS: MAGNESIUM HYDROXIDE 30 ML UDC GT PRN (21:18)
[2018-10-07] MEDS: IPRATROPIUM NEB FS 0.5 MG/2.5 ML AMPUL.NEB NEB SCH ×4 (01:38→19:21)
[2018-10-07] MEDS: METHOCARBAMOL (750MG) 750 MG TABLET GT PRN (04:09)
[2018-10-07] MEDS: HYDROCODONE/APAP 10/325MG 1 EA TABLET PO PRN ×2 (04:10→17:48)
[2018-10-07] MEDS: SUCRALFATE 1 G/10 ML UDC GT SCH ×4 (05:30→20:30)
[2018-10-07] MEDS: ESCITALOPRAM OXALATE (10 MG) 10 MG TABLET GT SCH (08:55)
[2018-10-07] MEDS: ACIDOPHILUS/BULGARICUS 1 EACH TAB.CHEW GT SCH ×3 (08:55→16:51)
[2018-10-07] MEDS: GABAPENTIN 250 MG/5 ML GT SCH ×3 (08:55→16:51)
[2018-10-07] MEDS: BACLOFEN (10 MG) 10 MG TABLET GT SCH ×4 (08:55→21:49)
[2018-10-07] MEDS: METHADONE HCL 10 MG TABLET GT SCH ×2 (08:57→16:52)
[2018-10-07] MEDS: HYDROCODONE/APAP 5/325MG 1 EACH TABLET GT SCH ×2 (08:57→21:50)
[2018-10-07] MEDS: FAMOTIDINE (20 MG) 20 MG TABLET GT SCH ×2 (08:58→21:50)
[2018-10-07] MEDS: MULTIVIT W/MINERALS 1 TAB TABLET GT SCH (08:58)
[2018-10-07] MEDS: PROSTAT (PYXIS) 30 ML UDC GT SCH ×3 (08:58→16:53)
[2018-10-07] MEDS: ASCORBIC ACID 500 MG TABLET GT SCH ×2 (08:58→16:53)
[2018-10-07] MEDS: CALCITRIOL 0.25 MCG CAPSULE PO SCH (08:58)
[2018-10-07] MEDS: CALCIUM CARBONATE 500 MG TAB.CHEW GT SCH ×3 (08:58→16:53)
[2018-10-07] MEDS: HYDROGEL DRESSING 90 GM TUBE TP SCH ×4 (09:00→21:53)
[2018-10-07] MEDS: NYSTATIN/TRIAMCIN 15 GM CREAM 15 GM TUBE TP SCH ×2 (09:00→21:53)
[2018-10-07] MEDS: HYDROGEN PEROXIDE 480 ML BOTTLE TP SCH ×2 (09:00→21:53)
[2018-10-07] MEDS: DAKINS QUARTER STRENGTH (0.125%) 480 ML BOTTLE TOP SCH ×2 (09:00→21:52)
[2018-10-07 11:59] VITALS: BP 127/69
[2018-10-07 19:51] VITALS: BP 111/72
[2018-10-07] MEDS: ZINC OXIDE 30 GM TUBE TP SCH (21:00)
[2018-10-07] MEDS: ZINC SULFATE 220 MG CAPSULE GT SCH (21:50)
[2018-10-07] MEDS: ENOXAPARIN SODIUM 40 MG/0.4 ML DISP.SYRIN SQ SCH (21:52)
[2018-10-07] MEDS: POLYETHYLENE GLYCOL 3350 17 GM POWD.PACK GT SCH (21:53)
[2018-10-07] MEDS: ATORVASTATIN 10 MG TABLET GT SCH (21:53)
[2018-10-08] MEDS: HYDROCODONE/APAP 10/325MG 1 EA TABLET PO PRN ×2 (00:30→02:00)
[2018-10-08] MEDS: IPRATROPIUM NEB FS 0.5 MG/2.5 ML AMPUL.NEB NEB SCH ×4 (01:47→19:21)
[2018-10-08] MEDS: SUCRALFATE 1 G/10 ML UDC GT SCH ×4 (06:41→20:35)
[2018-10-08 07:40] VITALS: BP 128/65
[2018-10-08] MEDS: ESCITALOPRAM OXALATE (10 MG) 10 MG TABLET GT SCH (08:52)
[2018-10-08] MEDS: ACIDOPHILUS/BULGARICUS 1 EACH TAB.CHEW GT SCH ×3 (08:52→17:13)
[2018-10-08] MEDS: GABAPENTIN 250 MG/5 ML GT SCH ×3 (08:52→17:13)
[2018-10-08] MEDS: BACLOFEN (10 MG) 10 MG TABLET GT SCH ×4 (08:52→20:35)
[2018-10-08] MEDS: PROSTAT (PYXIS) 30 ML UDC GT SCH ×3 (08:53→17:15)
[2018-10-08] MEDS: METHADONE HCL 10 MG TABLET GT SCH ×2 (08:53→17:15)
[2018-10-08] MEDS: FAMOTIDINE (20 MG) 20 MG TABLET GT SCH ×2 (08:53→20:36)
[2018-10-08] MEDS: CALCITRIOL 0.25 MCG CAPSULE PO SCH (08:53)
[2018-10-08] MEDS: CALCIUM CARBONATE 500 MG TAB.CHEW GT SCH ×3 (08:53→17:15)
[2018-10-08] MEDS: MULTIVIT W/MINERALS 1 TAB TABLET GT SCH (08:53)
[2018-10-08] MEDS: ASCORBIC ACID 500 MG TABLET GT SCH ×2 (08:53→17:15)
[2018-10-08] MEDS: ZINC OXIDE 30 GM TUBE TP SCH ×2 (09:00→21:19)
[2018-10-08] MEDS: HYDROGEN PEROXIDE 480 ML BOTTLE TP SCH ×2 (09:00→21:00)
[2018-10-08] MEDS: HYDROCODONE/APAP 5/325MG 1 EACH TABLET GT SCH ×2 (09:30→20:36)
[2018-10-08] MEDS: HYDROGEL DRESSING 90 GM TUBE TP SCH ×4 (10:00→21:19)
[2018-10-08] MEDS: DAKINS QUARTER STRENGTH (0.125%) 480 ML BOTTLE TOP SCH ×2 (10:00→21:19)
[2018-10-08] MEDS: NYSTATIN/TRIAMCIN 15 GM CREAM 15 GM TUBE TP SCH ×2 (10:00→21:19)
[2018-10-08] MEDS ORDERED: LIDOCAINE 1% INJ 50 ML MDV IJ ONE (12:42)
[2018-10-08 20:08] VITALS: BP 119/66
[2018-10-08] MEDS: ZINC SULFATE 220 MG CAPSULE GT SCH (20:36)
[2018-10-08] MEDS: ENOXAPARIN SODIUM 40 MG/0.4 ML DISP.SYRIN SQ SCH (20:36)
[2018-10-08] MEDS: POLYETHYLENE GLYCOL 3350 17 GM POWD.PACK GT SCH (21:19)
[2018-10-08] MEDS: ATORVASTATIN 10 MG TABLET GT SCH (21:19)
[2018-10-08] MEDS: METHOCARBAMOL (750MG) 750 MG TABLET GT PRN (23:25)
[2018-10-09] MEDS: IPRATROPIUM NEB FS 0.5 MG/2.5 ML AMPUL.NEB NEB SCH ×4 (01:35→19:38)
[2018-10-09] MEDS: SUCRALFATE 1 G/10 ML UDC GT SCH ×4 (05:38→20:42)
[2018-10-09 07:50] VITALS: BP 120/65
[2018-10-09] MEDS: FAMOTIDINE (20 MG) 20 MG TABLET GT SCH ×2 (09:00→20:44)
[2018-10-09] MEDS: ASCORBIC ACID 500 MG TABLET GT SCH ×2 (09:00→17:17)
[2018-10-09] MEDS: CALCIUM CARBONATE 500 MG TAB.CHEW GT SCH ×3 (09:00→17:17)
[2018-10-09] MEDS: MULTIVIT W/MINERALS 1 TAB TABLET GT SCH (09:00)
[2018-10-09] MEDS: GABAPENTIN 250 MG/5 ML GT SCH ×3 (09:00→17:17)
[2018-10-09] MEDS: ESCITALOPRAM OXALATE (10 MG) 10 MG TABLET GT SCH (09:00)
[2018-10-09] MEDS: HYDROGEN PEROXIDE 480 ML BOTTLE TP SCH ×2 (09:00→21:00)
[2018-10-09] MEDS: ACIDOPHILUS/BULGARICUS 1 EACH TAB.CHEW GT SCH ×3 (09:00→17:17)
[2018-10-09] MEDS: PROSTAT (PYXIS) 30 ML UDC GT SCH ×3 (09:00→17:17)
[2018-10-09] MEDS: BACLOFEN (10 MG) 10 MG TABLET GT SCH ×4 (09:00→20:43)
[2018-10-09] MEDS: METHADONE HCL 10 MG TABLET GT SCH ×2 (09:00→17:33)
[2018-10-09] MEDS: CALCITRIOL 0.25 MCG CAPSULE PO SCH (09:00)
[2018-10-09] MEDS: HYDROCODONE/APAP 5/325MG 1 EACH TABLET GT SCH ×2 (09:30→20:44)
[2018-10-09] MEDS: HYDROGEL DRESSING 90 GM TUBE TP SCH ×4 (10:00→21:26)
[2018-10-09] MEDS: NYSTATIN/TRIAMCIN 15 GM CREAM 15 GM TUBE TP SCH ×2 (10:00→21:26)
[2018-10-09] MEDS: ZINC OXIDE 30 GM TUBE TP SCH ×2 (10:00→21:26)
--- NOTE | 2018-10-09 14:45 | NUR ---
Late entry for 10/08/18 Pt noted with blanchable redness on the right lateral thigh and scrotum area, no dark purplish discoloration noted.
[2018-10-09 20:14] VITALS: BP 101/65
[2018-10-09] MEDS: ZINC SULFATE 220 MG CAPSULE GT SCH (20:44)
[2018-10-09] MEDS: ENOXAPARIN SODIUM 40 MG/0.4 ML DISP.SYRIN SQ SCH (20:44)
[2018-10-09] MEDS: POLYETHYLENE GLYCOL 3350 17 GM POWD.PACK GT SCH (21:26)
[2018-10-09] MEDS: ATORVASTATIN 10 MG TABLET GT SCH (21:26)
[2018-10-10] MEDS: METHOCARBAMOL (750MG) 750 MG TABLET GT PRN ×2 (01:34→23:34)
[2018-10-10] MEDS: IPRATROPIUM NEB FS 0.5 MG/2.5 ML AMPUL.NEB NEB SCH ×4 (01:52→20:21)
[2018-10-10] MEDS: SUCRALFATE 1 G/10 ML UDC GT SCH ×4 (05:40→20:47)
[2018-10-10 07:59] VITALS: BP 129/74
[2018-10-10] MEDS: HYDROGEN PEROXIDE 480 ML BOTTLE TP SCH ×2 (08:08→21:06)
[2018-10-10] MEDS: ZINC OXIDE 30 GM TUBE TP SCH ×2 (09:00→21:27)
[2018-10-10] MEDS: HYDROGEL DRESSING 90 GM TUBE TP SCH ×4 (09:00→21:27)
[2018-10-10] MEDS: NYSTATIN/TRIAMCIN 15 GM CREAM 15 GM TUBE TP SCH ×2 (09:00→21:27)
[2018-10-10] MEDS: ESCITALOPRAM OXALATE (10 MG) 10 MG TABLET GT SCH (09:07)
[2018-10-10] MEDS: BACLOFEN (10 MG) 10 MG TABLET GT SCH ×4 (09:07→20:47)
[2018-10-10] MEDS: ACIDOPHILUS/BULGARICUS 1 EACH TAB.CHEW GT SCH ×3 (09:07→17:06)
[2018-10-10] MEDS: GABAPENTIN 250 MG/5 ML GT SCH ×3 (09:07→17:06)
[2018-10-10] MEDS: METHADONE HCL 10 MG TABLET GT SCH ×2 (09:07→17:09)
[2018-10-10] MEDS: CALCITRIOL 0.25 MCG CAPSULE PO SCH (09:08)
[2018-10-10] MEDS: ASCORBIC ACID 500 MG TABLET GT SCH ×2 (09:08→17:09)
[2018-10-10] MEDS: HYDROCODONE/APAP 5/325MG 1 EACH TABLET GT SCH ×2 (09:08→20:48)
[2018-10-10] MEDS: MULTIVIT W/MINERALS 1 TAB TABLET GT SCH (09:08)
[2018-10-10] MEDS: PROSTAT (PYXIS) 30 ML UDC GT SCH ×3 (09:08→17:09)
[2018-10-10] MEDS: FAMOTIDINE (20 MG) 20 MG TABLET GT SCH ×2 (09:08→20:48)
[2018-10-10] MEDS: CALCIUM CARBONATE 500 MG TAB.CHEW GT SCH ×3 (09:08→17:09)
[2018-10-10] MEDS: HYDROCODONE/APAP 5/325MG 1 EACH TABLET GT PRN (13:10)
[2018-10-10 19:50] VITALS: BP 100/56
[2018-10-10] MEDS: ZINC SULFATE 220 MG CAPSULE GT SCH (20:48)
[2018-10-10] MEDS: ENOXAPARIN SODIUM 40 MG/0.4 ML DISP.SYRIN SQ SCH (20:48)
[2018-10-10] MEDS: POLYETHYLENE GLYCOL 3350 17 GM POWD.PACK GT SCH (21:27)
[2018-10-10] MEDS: ATORVASTATIN 10 MG TABLET GT SCH (21:27)
[2018-10-11] MEDS: IPRATROPIUM NEB FS 0.5 MG/2.5 ML AMPUL.NEB NEB SCH ×4 (01:49→19:57)
[2018-10-11] MEDS: HYDROCODONE/APAP 10/325MG 1 EA TABLET PO PRN (04:13)
[2018-10-11] MEDS: SUCRALFATE 1 G/10 ML UDC GT SCH ×4 (05:40→20:45)
[2018-10-11 08:04] VITALS: BP 123/74
[2018-10-11] MEDS: HYDROGEN PEROXIDE 480 ML BOTTLE TP SCH ×2 (09:00→19:57)
[2018-10-11] MEDS: HYDROCODONE/APAP 5/325MG 1 EACH TABLET GT SCH ×2 (09:00→20:45)
[2018-10-11] MEDS: HYDROGEL DRESSING 90 GM TUBE TP SCH ×4 (09:00→20:46)
[2018-10-11] MEDS: ESCITALOPRAM OXALATE (10 MG) 10 MG TABLET GT SCH (09:00)
[2018-10-11] MEDS: PROSTAT (PYXIS) 30 ML UDC GT SCH ×3 (09:00→17:51)
[2018-10-11] MEDS: METHADONE HCL 10 MG TABLET GT SCH ×2 (09:00→17:51)
[2018-10-11] MEDS: CALCIUM CARBONATE 500 MG TAB.CHEW GT SCH ×3 (09:00→17:51)
[2018-10-11] MEDS: ASCORBIC ACID 500 MG TABLET GT SCH ×2 (09:00→17:51)
[2018-10-11] MEDS: FAMOTIDINE (20 MG) 20 MG TABLET GT SCH ×2 (09:00→20:45)
[2018-10-11] MEDS: GABAPENTIN 250 MG/5 ML GT SCH ×3 (09:00→17:45)
[2018-10-11] MEDS: ACIDOPHILUS/BULGARICUS 1 EACH TAB.CHEW GT SCH ×3 (09:00→17:45)
[2018-10-11] MEDS: NYSTATIN/TRIAMCIN 15 GM CREAM 15 GM TUBE TP SCH ×2 (09:00→20:46)
[2018-10-11] MEDS: BACLOFEN (10 MG) 10 MG TABLET GT SCH ×4 (09:00→20:45)
[2018-10-11] MEDS: MULTIVIT W/MINERALS 1 TAB TABLET GT SCH (09:00)
[2018-10-11] MEDS: ZINC OXIDE 30 GM TUBE TP SCH ×2 (09:00→20:46)
[2018-10-11] MEDS: CALCITRIOL 0.25 MCG CAPSULE PO SCH (09:00)
[2018-10-11 20:38] VITALS: BP 100/68
[2018-10-11] MEDS: ZINC SULFATE 220 MG CAPSULE GT SCH (20:45)
[2018-10-11] MEDS: ENOXAPARIN SODIUM 40 MG/0.4 ML DISP.SYRIN SQ SCH (20:46)
[2018-10-11] MEDS: MAGNESIUM HYDROXIDE 30 ML UDC GT PRN (20:46)
[2018-10-11] MEDS: ATORVASTATIN 10 MG TABLET GT SCH (21:04)
[2018-10-11] MEDS: POLYETHYLENE GLYCOL 3350 17 GM POWD.PACK GT SCH (21:04)
[2018-10-12] MEDS: IPRATROPIUM NEB FS 0.5 MG/2.5 ML AMPUL.NEB NEB SCH ×4 (02:11→20:10)
[2018-10-12] MEDS: HYDROCODONE/APAP 10/325MG 1 EA TABLET PO PRN (02:34)
[2018-10-12] MEDS: SUCRALFATE 1 G/10 ML UDC GT SCH ×4 (05:33→20:42)
[2018-10-12 08:13] VITALS: BP 139/90
[2018-10-12] MEDS: METHADONE HCL 10 MG TABLET GT SCH ×2 (09:00→17:40)
[2018-10-12] MEDS: CALCITRIOL 0.25 MCG CAPSULE PO SCH (09:00)
[2018-10-12] MEDS: FAMOTIDINE (20 MG) 20 MG TABLET GT SCH ×2 (09:00→21:18)
[2018-10-12] MEDS: ESCITALOPRAM OXALATE (10 MG) 10 MG TABLET GT SCH (09:00)
[2018-10-12] MEDS: BACLOFEN (10 MG) 10 MG TABLET GT SCH ×4 (09:00→21:17)
[2018-10-12] MEDS: ASCORBIC ACID 500 MG TABLET GT SCH ×2 (09:00→17:40)
[2018-10-12] MEDS: HYDROGEL DRESSING 90 GM TUBE TP SCH ×4 (09:00→21:18)
[2018-10-12] MEDS: ACIDOPHILUS/BULGARICUS 1 EACH TAB.CHEW GT SCH ×3 (09:00→17:40)
[2018-10-12] MEDS: GABAPENTIN 250 MG/5 ML GT SCH ×3 (09:00→17:40)
[2018-10-12] MEDS: HYDROCODONE/APAP 5/325MG 1 EACH TABLET GT SCH ×2 (09:00→21:18)
[2018-10-12] MEDS: ZINC OXIDE 30 GM TUBE TP SCH ×2 (09:00→21:19)
[2018-10-12] MEDS: MULTIVIT W/MINERALS 1 TAB TABLET GT SCH (09:00)
[2018-10-12] MEDS: CALCIUM CARBONATE 500 MG TAB.CHEW GT SCH ×3 (09:00→17:40)
[2018-10-12] MEDS: NYSTATIN/TRIAMCIN 15 GM CREAM 15 GM TUBE TP SCH ×2 (09:00→21:19)
[2018-10-12] MEDS: HYDROGEN PEROXIDE 480 ML BOTTLE TP SCH ×2 (09:00→21:19)
[2018-10-12] MEDS: PROSTAT (PYXIS) 30 ML UDC GT SCH ×3 (09:00→17:40)
[2018-10-12 20:00] VITALS: BP 108/66
[2018-10-12 20:03] VITALS: BP 108/66
[2018-10-12] MEDS: ZINC SULFATE 220 MG CAPSULE GT SCH (21:18)
[2018-10-12] MEDS: ATORVASTATIN 10 MG TABLET GT SCH (21:19)
[2018-10-12] MEDS: POLYETHYLENE GLYCOL 3350 17 GM POWD.PACK GT SCH (21:19)
[2018-10-12] MEDS: ENOXAPARIN SODIUM 40 MG/0.4 ML DISP.SYRIN SQ SCH (21:26)
[2018-10-13] MEDS: IPRATROPIUM NEB FS 0.5 MG/2.5 ML AMPUL.NEB NEB SCH ×4 (01:41→19:45)
[2018-10-13] MEDS: SUCRALFATE 1 G/10 ML UDC GT SCH ×4 (05:36→20:35)
[2018-10-13 07:54] VITALS: BP 137/75
[2018-10-13] MEDS: HYDROGEL DRESSING 90 GM TUBE TP SCH ×4 (09:00→20:36)
[2018-10-13] MEDS: HYDROGEN PEROXIDE 480 ML BOTTLE TP SCH ×2 (09:00→20:36)
[2018-10-13] MEDS: ZINC OXIDE 30 GM TUBE TP SCH ×2 (09:00→20:36)
[2018-10-13] MEDS: NYSTATIN/TRIAMCIN 15 GM CREAM 15 GM TUBE TP SCH ×2 (09:00→20:36)
[2018-10-13] MEDS: ACIDOPHILUS/BULGARICUS 1 EACH TAB.CHEW GT SCH ×3 (09:15→17:28)
[2018-10-13] MEDS: GABAPENTIN 250 MG/5 ML GT SCH ×3 (09:15→17:28)
[2018-10-13] MEDS: METHADONE HCL 10 MG TABLET GT SCH ×2 (09:15→17:32)
[2018-10-13] MEDS: MULTIVIT W/MINERALS 1 TAB TABLET GT SCH (09:16)
[2018-10-13] MEDS: PROSTAT (PYXIS) 30 ML UDC GT SCH ×3 (09:16→17:32)
[2018-10-13] MEDS: ESCITALOPRAM OXALATE (10 MG) 10 MG TABLET GT SCH (09:16)
[2018-10-13] MEDS: FAMOTIDINE (20 MG) 20 MG TABLET GT SCH ×2 (09:16→20:35)
[2018-10-13] MEDS: BACLOFEN (10 MG) 10 MG TABLET GT SCH ×4 (09:16→20:35)
[2018-10-13] MEDS: CALCITRIOL 0.25 MCG CAPSULE PO SCH (09:17)
[2018-10-13] MEDS: ASCORBIC ACID 500 MG TABLET GT SCH ×2 (09:17→17:32)
[2018-10-13] MEDS: CALCIUM CARBONATE 500 MG TAB.CHEW GT SCH ×3 (09:17→17:32)
[2018-10-13] MEDS: HYDROCODONE/APAP 5/325MG 1 EACH TABLET GT SCH ×2 (09:56→20:35)
[2018-10-13 20:31] VITALS: BP 109/69
[2018-10-13] MEDS: ZINC SULFATE 220 MG CAPSULE GT SCH (20:35)
[2018-10-13] MEDS: ENOXAPARIN SODIUM 40 MG/0.4 ML DISP.SYRIN SQ SCH (20:36)
[2018-10-13] MEDS: MAGNESIUM HYDROXIDE 30 ML UDC GT PRN (20:36)
[2018-10-13] MEDS: ATORVASTATIN 10 MG TABLET GT SCH (21:06)
[2018-10-13] MEDS: POLYETHYLENE GLYCOL 3350 17 GM POWD.PACK GT SCH (21:06)
[2018-10-14] MEDS: IPRATROPIUM NEB FS 0.5 MG/2.5 ML AMPUL.NEB NEB SCH ×4 (01:22→19:18)
[2018-10-14] MEDS: METHOCARBAMOL (750MG) 750 MG TABLET GT PRN (05:31)
[2018-10-14] MEDS: SUCRALFATE 1 G/10 ML UDC GT SCH ×4 (05:31→21:21)
[2018-10-14 08:02] VITALS: BP 122/75
[2018-10-14] MEDS: NYSTATIN/TRIAMCIN 15 GM CREAM 15 GM TUBE TP SCH ×2 (09:00→21:23)
[2018-10-14] MEDS: HYDROGEL DRESSING 90 GM TUBE TP SCH ×4 (09:00→21:23)
[2018-10-14] MEDS: ZINC OXIDE 30 GM TUBE TP SCH ×2 (09:00→21:23)
[2018-10-14] MEDS: HYDROGEN PEROXIDE 480 ML BOTTLE TP SCH ×2 (09:00→21:23)
[2018-10-14] MEDS: MULTIVIT W/MINERALS 1 TAB TABLET GT SCH (09:09)
[2018-10-14] MEDS: FAMOTIDINE (20 MG) 20 MG TABLET GT SCH ×2 (09:09→21:23)
[2018-10-14] MEDS: CALCITRIOL 0.25 MCG CAPSULE PO SCH (09:09)
[2018-10-14] MEDS: CALCIUM CARBONATE 500 MG TAB.CHEW GT SCH ×3 (09:09→16:53)
[2018-10-14] MEDS: PROSTAT (PYXIS) 30 ML UDC GT SCH ×3 (09:09→16:53)
[2018-10-14] MEDS: GABAPENTIN 250 MG/5 ML GT SCH ×3 (09:09→16:52)
[2018-10-14] MEDS: ACIDOPHILUS/BULGARICUS 1 EACH TAB.CHEW GT SCH ×3 (09:09→16:52)
[2018-10-14] MEDS: ASCORBIC ACID 500 MG TABLET GT SCH ×2 (09:09→16:53)
[2018-10-14] MEDS: ESCITALOPRAM OXALATE (10 MG) 10 MG TABLET GT SCH (09:09)
[2018-10-14] MEDS: BACLOFEN (10 MG) 10 MG TABLET GT SCH ×4 (09:09→21:21)
[2018-10-14] MEDS: METHADONE HCL 10 MG TABLET GT SCH ×2 (09:09→16:53)
[2018-10-14] MEDS: HYDROCODONE/APAP 5/325MG 1 EACH TABLET GT SCH ×2 (10:30→21:22)
[2018-10-14 19:39] VITALS: BP 124/70
[2018-10-14] MEDS: POLYETHYLENE GLYCOL 3350 17 GM POWD.PACK GT SCH (21:23)
[2018-10-14] MEDS: ATORVASTATIN 10 MG TABLET GT SCH (21:23)
[2018-10-14] MEDS: ZINC SULFATE 220 MG CAPSULE GT SCH (21:23)
[2018-10-14] MEDS: ENOXAPARIN SODIUM 40 MG/0.4 ML DISP.SYRIN SQ SCH (21:23)
[2018-10-15] MEDS: HYDROCODONE/APAP 5/325MG 1 EACH TABLET GT PRN (01:00)
[2018-10-15] MEDS: IPRATROPIUM NEB FS 0.5 MG/2.5 ML AMPUL.NEB NEB SCH ×4 (01:02→19:34)
--- NOTE | 2018-10-15 02:15 | NUR ---
RT NOTES TRACH TUBE IN PLACE, PATENT, AND SECURED WITH TRACH TIE. ALARMS ON AND AUDIBLE. VENT PLUGGED IN TO RED OUTLET. AMBU BAG AND BACK UP TRACH BY THE BEDSIDE. SX MODERATE THICK PALE YELLOW SECRETIONS. NO RESP DISTRESS AT THIS TIME. PLACE ON VENT PER MD ORDERS CUFF INFLATED. TOLERATE WELL. Addendum: 10/15/18 at 0218 by JERONIMO YOUNG RT Amended: Links added.
[2018-10-15] MEDS: SUCRALFATE 1 G/10 ML UDC GT SCH ×4 (06:33→20:30)
[2018-10-15] MEDS: MULTIVIT W/MINERALS 1 TAB TABLET GT SCH (09:00)
[2018-10-15] MEDS: GABAPENTIN 250 MG/5 ML GT SCH ×3 (09:00→17:13)
[2018-10-15] MEDS: ESCITALOPRAM OXALATE (10 MG) 10 MG TABLET GT SCH (09:00)
[2018-10-15] MEDS: PROSTAT (PYXIS) 30 ML UDC GT SCH ×3 (09:00→17:15)
[2018-10-15] MEDS: CALCITRIOL 0.25 MCG CAPSULE PO SCH (09:00)
[2018-10-15] MEDS: CALCIUM CARBONATE 500 MG TAB.CHEW GT SCH ×3 (09:00→17:15)
[2018-10-15] MEDS: METHADONE HCL 10 MG TABLET GT SCH ×2 (09:00→17:15)
[2018-10-15] MEDS: FAMOTIDINE (20 MG) 20 MG TABLET GT SCH ×2 (09:00→21:47)
[2018-10-15] MEDS: HYDROGEN PEROXIDE 480 ML BOTTLE TP SCH ×2 (09:00→21:00)
[2018-10-15] MEDS: ASCORBIC ACID 500 MG TABLET GT SCH ×2 (09:00→17:15)
[2018-10-15] MEDS: ACIDOPHILUS/BULGARICUS 1 EACH TAB.CHEW GT SCH ×3 (09:00→17:13)
[2018-10-15] MEDS: BACLOFEN (10 MG) 10 MG TABLET GT SCH ×4 (09:00→21:46)
[2018-10-15] MEDS: HYDROCODONE/APAP 5/325MG 1 EACH TABLET GT SCH ×2 (10:30→21:56)
[2018-10-15] MEDS: NYSTATIN/TRIAMCIN 15 GM CREAM 15 GM TUBE TP SCH ×2 (11:30→21:50)
[2018-10-15] MEDS: HYDROGEL DRESSING 90 GM TUBE TP SCH (11:30)
[2018-10-15] MEDS: ZINC OXIDE 30 GM TUBE TP SCH ×2 (11:30→21:51)
[2018-10-15] MEDS: HYDROCODONE/APAP 10/325MG 1 EA TABLET PO PRN (14:00)
[2018-10-15 18:59] VITALS: BP 124/78
[2018-10-15 19:55] VITALS: BP 119/70
[2018-10-15] MEDS: ZINC SULFATE 220 MG CAPSULE GT SCH (21:49)
[2018-10-15] MEDS: THERAHONEY GEL 1.5 OZ TUBE TP SCH ×2 (21:50→21:51)
[2018-10-15] MEDS: ENOXAPARIN SODIUM 40 MG/0.4 ML DISP.SYRIN SQ SCH (21:50)
[2018-10-15] MEDS: POLYETHYLENE GLYCOL 3350 17 GM POWD.PACK GT SCH (21:52)
[2018-10-15] MEDS: ATORVASTATIN 10 MG TABLET GT SCH (21:52)
[2018-10-16] MEDS: IPRATROPIUM NEB FS 0.5 MG/2.5 ML AMPUL.NEB NEB SCH ×4 (01:34→19:20)
[2018-10-16] MEDS: SUCRALFATE 1 G/10 ML UDC GT SCH ×4 (05:42→20:46)
[2018-10-16] MEDS: HYDROCODONE/APAP 10/325MG 1 EA TABLET PO PRN (05:51)
[2018-10-16 08:13] VITALS: BP 111/71
[2018-10-16] MEDS: HYDROGEN PEROXIDE 480 ML BOTTLE TP SCH ×2 (09:00→21:00)
[2018-10-16] MEDS: ACIDOPHILUS/BULGARICUS 1 EACH TAB.CHEW GT SCH ×3 (09:30→17:41)
[2018-10-16] MEDS: HYDROCODONE/APAP 5/325MG 1 EACH TABLET GT SCH ×2 (09:30→20:47)
[2018-10-16] MEDS: GABAPENTIN 250 MG/5 ML GT SCH ×3 (09:30→17:41)
[2018-10-16] MEDS: BACLOFEN (10 MG) 10 MG TABLET GT SCH ×4 (09:31→20:46)
[2018-10-16] MEDS: ESCITALOPRAM OXALATE (10 MG) 10 MG TABLET GT SCH (09:31)
[2018-10-16] MEDS: CALCITRIOL 0.25 MCG CAPSULE PO SCH (09:32)
[2018-10-16] MEDS: METHADONE HCL 10 MG TABLET GT SCH ×2 (09:32→17:42)
[2018-10-16] MEDS: ASCORBIC ACID 500 MG TABLET GT SCH ×2 (09:32→17:42)
[2018-10-16] MEDS: CALCIUM CARBONATE 500 MG TAB.CHEW GT SCH ×3 (09:32→17:42)
[2018-10-16] MEDS: FAMOTIDINE (20 MG) 20 MG TABLET GT SCH ×2 (09:32→20:47)
[2018-10-16] MEDS: MULTIVIT W/MINERALS 1 TAB TABLET GT SCH (09:32)
[2018-10-16] MEDS: PROSTAT (PYXIS) 30 ML UDC GT SCH ×3 (09:32→17:42)
[2018-10-16] MEDS: NYSTATIN/TRIAMCIN 15 GM CREAM 15 GM TUBE TP SCH ×2 (10:00→20:48)
[2018-10-16] MEDS: ZINC OXIDE 30 GM TUBE TP SCH ×2 (10:00→20:48)
[2018-10-16] MEDS: THERAHONEY GEL 1.5 OZ TUBE TP SCH ×4 (10:00→20:48)
[2018-10-16 20:07] VITALS: BP 107/68
[2018-10-16] MEDS: ENOXAPARIN SODIUM 40 MG/0.4 ML DISP.SYRIN SQ SCH (20:47)
[2018-10-16] MEDS: ZINC SULFATE 220 MG CAPSULE GT SCH (20:47)
[2018-10-16] MEDS: ATORVASTATIN 10 MG TABLET GT SCH (21:22)
[2018-10-16] MEDS: POLYETHYLENE GLYCOL 3350 17 GM POWD.PACK GT SCH (21:22)
[2018-10-17] MEDS: IPRATROPIUM NEB FS 0.5 MG/2.5 ML AMPUL.NEB NEB SCH ×4 (00:44→19:40)
[2018-10-17] MEDS: SUCRALFATE 1 G/10 ML UDC GT SCH ×4 (05:45→21:02)
[2018-10-17 07:43] VITALS: BP 116/60
[2018-10-17] MEDS: THERAHONEY GEL 1.5 OZ TUBE TP SCH ×4 (09:00→21:38)
[2018-10-17] MEDS: HYDROGEN PEROXIDE 480 ML BOTTLE TP SCH ×2 (09:00→19:40)
[2018-10-17] MEDS: NYSTATIN/TRIAMCIN 15 GM CREAM 15 GM TUBE TP SCH ×2 (09:00→21:38)
--- NOTE | 2018-10-17 09:30 | NUR ---
Seen and examined by Dr. Seaman no new order given.
[2018-10-17] MEDS: ESCITALOPRAM OXALATE (10 MG) 10 MG TABLET GT SCH (09:51)
[2018-10-17] MEDS: GABAPENTIN 250 MG/5 ML GT SCH ×3 (09:51→17:45)
[2018-10-17] MEDS: BACLOFEN (10 MG) 10 MG TABLET GT SCH ×4 (09:51→21:02)
[2018-10-17] MEDS: METHADONE HCL 10 MG TABLET GT SCH ×2 (09:51→17:46)
[2018-10-17] MEDS: ACIDOPHILUS/BULGARICUS 1 EACH TAB.CHEW GT SCH ×3 (09:51→17:45)
[2018-10-17] MEDS: CALCITRIOL 0.25 MCG CAPSULE PO SCH (09:52)
[2018-10-17] MEDS: ZINC OXIDE 30 GM TUBE TP SCH ×2 (09:52→21:38)
[2018-10-17] MEDS: FAMOTIDINE (20 MG) 20 MG TABLET GT SCH ×2 (09:52→21:03)
[2018-10-17] MEDS: PROSTAT (PYXIS) 30 ML UDC GT SCH ×3 (09:52→17:46)
[2018-10-17] MEDS: MULTIVIT W/MINERALS 1 TAB TABLET GT SCH (09:52)
[2018-10-17] MEDS: ASCORBIC ACID 500 MG TABLET GT SCH ×2 (09:52→17:46)
[2018-10-17] MEDS: CALCIUM CARBONATE 500 MG TAB.CHEW GT SCH ×3 (09:52→17:46)
[2018-10-17] MEDS: HYDROCODONE/APAP 5/325MG 1 EACH TABLET GT SCH ×2 (09:52→21:03)
[2018-10-17] MEDS: MAGNESIUM HYDROXIDE 30 ML UDC GT PRN (17:46)
[2018-10-17 20:07] VITALS: BP 108/68
[2018-10-17] MEDS: POLYETHYLENE GLYCOL 3350 17 GM POWD.PACK GT SCH (21:03)
[2018-10-17] MEDS: ATORVASTATIN 10 MG TABLET GT SCH (21:03)
[2018-10-17] MEDS: ZINC SULFATE 220 MG CAPSULE GT SCH (21:03)
[2018-10-17] MEDS: ENOXAPARIN SODIUM 40 MG/0.4 ML DISP.SYRIN SQ SCH (21:03)
[2018-10-17] MEDS: METHOCARBAMOL (750MG) 750 MG TABLET GT PRN (23:32)
[2018-10-18] MEDS: IPRATROPIUM NEB FS 0.5 MG/2.5 ML AMPUL.NEB NEB SCH ×4 (00:51→20:33)
[2018-10-18] MEDS: SUCRALFATE 1 G/10 ML UDC GT SCH ×4 (06:01→20:30)
[2018-10-18 07:42] VITALS: BP 137/76
[2018-10-18] MEDS: THERAHONEY GEL 1.5 OZ TUBE TP SCH ×4 (09:00→21:40)
[2018-10-18] MEDS: NYSTATIN/TRIAMCIN 15 GM CREAM 15 GM TUBE TP SCH ×2 (09:00→21:39)
[2018-10-18] MEDS: ZINC OXIDE 30 GM TUBE TP SCH ×2 (09:00→21:40)
[2018-10-18] MEDS: HYDROGEN PEROXIDE 480 ML BOTTLE TP SCH ×2 (09:00→21:39)
[2018-10-18] MEDS: GABAPENTIN 250 MG/5 ML GT SCH ×3 (09:30→17:00)
[2018-10-18] MEDS: ACIDOPHILUS/BULGARICUS 1 EACH TAB.CHEW GT SCH ×3 (09:30→17:00)
[2018-10-18] MEDS: BACLOFEN (10 MG) 10 MG TABLET GT SCH ×4 (09:30→21:37)
[2018-10-18] MEDS: ESCITALOPRAM OXALATE (10 MG) 10 MG TABLET GT SCH (09:30)
[2018-10-18] MEDS: METHADONE HCL 10 MG TABLET GT SCH ×2 (09:31→17:00)
[2018-10-18] MEDS: MULTIVIT W/MINERALS 1 TAB TABLET GT SCH (09:31)
[2018-10-18] MEDS: CALCITRIOL 0.25 MCG CAPSULE PO SCH (09:31)
[2018-10-18] MEDS: HYDROCODONE/APAP 5/325MG 1 EACH TABLET GT SCH ×2 (09:31→21:38)
[2018-10-18] MEDS: FAMOTIDINE (20 MG) 20 MG TABLET GT SCH ×2 (09:31→21:38)
[2018-10-18] MEDS: PROSTAT (PYXIS) 30 ML UDC GT SCH ×3 (09:31→17:00)
[2018-10-18] MEDS: ASCORBIC ACID 500 MG TABLET GT SCH ×2 (09:31→17:00)
[2018-10-18] MEDS: CALCIUM CARBONATE 500 MG TAB.CHEW GT SCH ×3 (09:31→17:00)
[2018-10-18 20:03] VITALS: BP 98/54
[2018-10-18] MEDS: ZINC SULFATE 220 MG CAPSULE GT SCH (21:38)
[2018-10-18] MEDS: ENOXAPARIN SODIUM 40 MG/0.4 ML DISP.SYRIN SQ SCH (21:39)
[2018-10-18] MEDS: ATORVASTATIN 10 MG TABLET GT SCH (21:40)
[2018-10-18] MEDS: POLYETHYLENE GLYCOL 3350 17 GM POWD.PACK GT SCH (21:40)
[2018-10-19] MEDS: IPRATROPIUM NEB FS 0.5 MG/2.5 ML AMPUL.NEB NEB SCH ×4 (01:52→19:18)
[2018-10-19] MEDS: HYDROCODONE/APAP 5/325MG 1 EACH TABLET GT PRN (03:33)
[2018-10-19] MEDS: SUCRALFATE 1 G/10 ML UDC GT SCH ×4 (06:33→20:30)
[2018-10-19] MEDS: HYDROGEN PEROXIDE 480 ML BOTTLE TP SCH ×2 (08:06→21:00)
[2018-10-19 08:17] VITALS: BP 113/65
[2018-10-19] MEDS: ZINC OXIDE 30 GM TUBE TP SCH ×2 (09:00→21:00)
[2018-10-19] MEDS: THERAHONEY GEL 1.5 OZ TUBE TP SCH ×4 (09:00→21:00)
[2018-10-19] MEDS: NYSTATIN/TRIAMCIN 15 GM CREAM 15 GM TUBE TP SCH ×2 (09:00→21:00)
[2018-10-19] MEDS: ACIDOPHILUS/BULGARICUS 1 EACH TAB.CHEW GT SCH ×3 (09:34→16:03)
[2018-10-19] MEDS: HYDROCODONE/APAP 5/325MG 1 EACH TABLET GT SCH ×2 (09:34→21:00)
[2018-10-19] MEDS: METHADONE HCL 10 MG TABLET GT SCH ×2 (09:34→16:03)
[2018-10-19] MEDS: ESCITALOPRAM OXALATE (10 MG) 10 MG TABLET GT SCH (09:34)
[2018-10-19] MEDS: PROSTAT (PYXIS) 30 ML UDC GT SCH ×3 (09:34→16:03)
[2018-10-19] MEDS: ASCORBIC ACID 500 MG TABLET GT SCH ×2 (09:34→16:03)
[2018-10-19] MEDS: GABAPENTIN 250 MG/5 ML GT SCH ×3 (09:34→16:03)
[2018-10-19] MEDS: MULTIVIT W/MINERALS 1 TAB TABLET GT SCH (09:34)
[2018-10-19] MEDS: BACLOFEN (10 MG) 10 MG TABLET GT SCH ×4 (09:34→21:00)
[2018-10-19] MEDS: CALCIUM CARBONATE 500 MG TAB.CHEW GT SCH ×3 (09:34→16:03)
[2018-10-19] MEDS: CALCITRIOL 0.25 MCG CAPSULE PO SCH (09:34)
[2018-10-19] MEDS: FAMOTIDINE (20 MG) 20 MG TABLET GT SCH ×2 (09:34→21:00)
[2018-10-19 20:24] VITALS: BP 101/63
[2018-10-19] MEDS: ZINC SULFATE 220 MG CAPSULE GT SCH (21:00)
[2018-10-19] MEDS: ENOXAPARIN SODIUM 40 MG/0.4 ML DISP.SYRIN SQ SCH (21:00)
[2018-10-19] MEDS: POLYETHYLENE GLYCOL 3350 17 GM POWD.PACK GT SCH (22:13)
[2018-10-19] MEDS: ATORVASTATIN 10 MG TABLET GT SCH (22:13)
[2018-10-20] MEDS: IPRATROPIUM NEB FS 0.5 MG/2.5 ML AMPUL.NEB NEB SCH ×4 (01:10→19:58)
--- NOTE | 2018-10-20 03:37 | NUR ---
RT NOTE: RECEIVED TRACH PT ON 28% COOL AEROSOL TRACH MASK. PLACED PT BACK ON ORDERED VENT SETTINGS PER MD NOC ORDER. NO RESPIRATORY DISTRESS NOTED. TRACH CHECKED SECURE AND PATENT. SXD AND LAVAGED PT Q ROUND AND NEEDED. TXS GIVEN ORDERED WITH NO ADVERSE REACTIONS NOTED. TRACH CARE DONE. SPARE TRACH AND AMBU BAG @ BEDSIDE. VENT PLUGGED INTO RED OUTLET.
[2018-10-20] MEDS: SUCRALFATE 1 G/10 ML UDC GT SCH ×4 (04:26→20:44)
[2018-10-20] MEDS: HYDROCODONE/APAP 5/325MG 1 EACH TABLET GT PRN (05:00)
[2018-10-20 07:46] VITALS: BP 128/70
[2018-10-20] MEDS: THERAHONEY GEL 1.5 OZ TUBE TP SCH ×4 (09:00→20:45)
[2018-10-20] MEDS: HYDROGEN PEROXIDE 480 ML BOTTLE TP SCH ×2 (09:00→20:44)
[2018-10-20] MEDS: GABAPENTIN 250 MG/5 ML GT SCH ×3 (09:00→17:54)
[2018-10-20] MEDS: NYSTATIN/TRIAMCIN 15 GM CREAM 15 GM TUBE TP SCH ×2 (09:00→20:45)
[2018-10-20] MEDS: ZINC OXIDE 30 GM TUBE TP SCH ×2 (09:00→20:45)
[2018-10-20] MEDS: ESCITALOPRAM OXALATE (10 MG) 10 MG TABLET GT SCH (09:47)
[2018-10-20] MEDS: CALCIUM CARBONATE 500 MG TAB.CHEW GT SCH ×3 (09:47→17:00)
[2018-10-20] MEDS: FAMOTIDINE (20 MG) 20 MG TABLET GT SCH ×2 (09:47→20:44)
[2018-10-20] MEDS: ACIDOPHILUS/BULGARICUS 1 EACH TAB.CHEW GT SCH ×3 (09:47→17:54)
[2018-10-20] MEDS: MULTIVIT W/MINERALS 1 TAB TABLET GT SCH (09:47)
[2018-10-20] MEDS: BACLOFEN (10 MG) 10 MG TABLET GT SCH ×4 (09:47→20:44)
[2018-10-20] MEDS: ASCORBIC ACID 500 MG TABLET GT SCH ×2 (09:48→17:00)
[2018-10-20] MEDS: PROSTAT (PYXIS) 30 ML UDC GT SCH ×3 (09:48→17:55)
[2018-10-20] MEDS: METHADONE HCL 10 MG TABLET GT SCH ×2 (09:48→17:55)
[2018-10-20] MEDS: CALCITRIOL 0.25 MCG CAPSULE PO SCH (09:48)
[2018-10-20] MEDS: HYDROCODONE/APAP 5/325MG 1 EACH TABLET GT SCH ×2 (10:00→21:00)
[2018-10-20 20:03] VITALS: BP 113/71
[2018-10-20] MEDS: ZINC SULFATE 220 MG CAPSULE GT SCH (20:44)
[2018-10-20] MEDS: POLYETHYLENE GLYCOL 3350 17 GM POWD.PACK GT SCH (21:33)
[2018-10-20] MEDS: ATORVASTATIN 10 MG TABLET GT SCH (21:33)
[2018-10-20] MEDS: ENOXAPARIN SODIUM 40 MG/0.4 ML DISP.SYRIN SQ SCH (21:46)
[2018-10-21] MEDS: IPRATROPIUM NEB FS 0.5 MG/2.5 ML AMPUL.NEB NEB SCH ×5 (01:46→23:58)
[2018-10-21] MEDS: SUCRALFATE 1 G/10 ML UDC GT SCH ×4 (05:50→20:30)
[2018-10-21 08:10] VITALS: BP 115/71
[2018-10-21] MEDS: HYDROGEN PEROXIDE 480 ML BOTTLE TP SCH ×2 (08:24→21:00)
[2018-10-21] MEDS: ZINC OXIDE 30 GM TUBE TP SCH ×2 (09:00→21:35)
[2018-10-21] MEDS: THERAHONEY GEL 1.5 OZ TUBE TP SCH ×4 (09:00→21:35)
[2018-10-21] MEDS: NYSTATIN/TRIAMCIN 15 GM CREAM 15 GM TUBE TP SCH ×2 (09:00→21:35)
[2018-10-21] MEDS: ACIDOPHILUS/BULGARICUS 1 EACH TAB.CHEW GT SCH ×3 (09:05→16:14)
[2018-10-21] MEDS: ESCITALOPRAM OXALATE (10 MG) 10 MG TABLET GT SCH (09:05)
[2018-10-21] MEDS: GABAPENTIN 250 MG/5 ML GT SCH ×3 (09:05→16:14)
[2018-10-21] MEDS: BACLOFEN (10 MG) 10 MG TABLET GT SCH ×4 (09:05→21:31)
[2018-10-21] MEDS: METHADONE HCL 10 MG TABLET GT SCH ×2 (09:07→16:15)
[2018-10-21] MEDS: MULTIVIT W/MINERALS 1 TAB TABLET GT SCH (09:08)
[2018-10-21] MEDS: CALCIUM CARBONATE 500 MG TAB.CHEW GT SCH ×3 (09:08→16:15)
[2018-10-21] MEDS: ASCORBIC ACID 500 MG TABLET GT SCH ×2 (09:08→16:15)
[2018-10-21] MEDS: FAMOTIDINE (20 MG) 20 MG TABLET GT SCH ×2 (09:08→21:33)
[2018-10-21] MEDS: PROSTAT (PYXIS) 30 ML UDC GT SCH ×3 (09:08→16:15)
[2018-10-21] MEDS: HYDROCODONE/APAP 5/325MG 1 EACH TABLET GT SCH ×2 (09:08→21:33)
[2018-10-21] MEDS: CALCITRIOL 0.25 MCG CAPSULE PO SCH (09:09)
[2018-10-21 20:30] VITALS: BP 108/70
[2018-10-21] MEDS: ZINC SULFATE 220 MG CAPSULE GT SCH (21:34)
[2018-10-21] MEDS: ENOXAPARIN SODIUM 40 MG/0.4 ML DISP.SYRIN SQ SCH (21:35)
[2018-10-21] MEDS: ATORVASTATIN 10 MG TABLET GT SCH (21:35)
[2018-10-21] MEDS: POLYETHYLENE GLYCOL 3350 17 GM POWD.PACK GT SCH (21:36)
[2018-10-22] MEDS: SUCRALFATE 1 G/10 ML UDC GT SCH ×4 (05:41→21:01)
[2018-10-22 08:08] VITALS: BP 115/67
[2018-10-22] MEDS: IPRATROPIUM NEB FS 0.5 MG/2.5 ML AMPUL.NEB NEB SCH ×3 (08:26→19:27)
[2018-10-22] MEDS: HYDROGEN PEROXIDE 480 ML BOTTLE TP SCH ×2 (08:27→21:06)
[2018-10-22] MEDS: GABAPENTIN 250 MG/5 ML GT SCH ×3 (08:37→17:23)
[2018-10-22] MEDS: BACLOFEN (10 MG) 10 MG TABLET GT SCH ×4 (08:37→21:03)
[2018-10-22] MEDS: ESCITALOPRAM OXALATE (10 MG) 10 MG TABLET GT SCH (08:37)
[2018-10-22] MEDS: ACIDOPHILUS/BULGARICUS 1 EACH TAB.CHEW GT SCH ×3 (08:37→17:23)
[2018-10-22] MEDS: PROSTAT (PYXIS) 30 ML UDC GT SCH ×3 (08:38→17:23)
[2018-10-22] MEDS: CALCITRIOL 0.25 MCG CAPSULE PO SCH (08:38)
[2018-10-22] MEDS: ASCORBIC ACID 500 MG TABLET GT SCH ×2 (08:38→17:23)
[2018-10-22] MEDS: CALCIUM CARBONATE 500 MG TAB.CHEW GT SCH ×3 (08:38→17:23)
[2018-10-22] MEDS: METHADONE HCL 10 MG TABLET GT SCH ×2 (08:38→17:23)
[2018-10-22] MEDS: MULTIVIT W/MINERALS 1 TAB TABLET GT SCH (08:38)
[2018-10-22] MEDS: FAMOTIDINE (20 MG) 20 MG TABLET GT SCH ×2 (08:38→21:05)
[2018-10-22] MEDS: HYDROCODONE/APAP 5/325MG 1 EACH TABLET GT SCH ×2 (09:00→21:05)
[2018-10-22] MEDS: ZINC OXIDE 30 GM TUBE TP SCH ×2 (09:30→21:06)
[2018-10-22] MEDS: NYSTATIN/TRIAMCIN 15 GM CREAM 15 GM TUBE TP SCH ×2 (09:30→21:06)
[2018-10-22] MEDS: THERAHONEY GEL 1.5 OZ TUBE TP SCH ×4 (09:30→21:06)
[2018-10-22 20:24] VITALS: BP 98/61
[2018-10-22] MEDS: ZINC SULFATE 220 MG CAPSULE GT SCH (21:05)
[2018-10-22] MEDS: ENOXAPARIN SODIUM 40 MG/0.4 ML DISP.SYRIN SQ SCH (21:06)
[2018-10-22] MEDS: POLYETHYLENE GLYCOL 3350 17 GM POWD.PACK GT SCH (21:07)
[2018-10-22] MEDS: ATORVASTATIN 10 MG TABLET GT SCH (21:07)
[2018-10-23] MEDS: IPRATROPIUM NEB FS 0.5 MG/2.5 ML AMPUL.NEB NEB SCH ×4 (01:25→20:33)
[2018-10-23] MEDS: SUCRALFATE 1 G/10 ML UDC GT SCH ×4 (05:29→20:30)
[2018-10-23 07:50] VITALS: BP 121/68
[2018-10-23] MEDS: FAMOTIDINE (20 MG) 20 MG TABLET GT SCH ×2 (08:52→21:54)
[2018-10-23] MEDS: ACIDOPHILUS/BULGARICUS 1 EACH TAB.CHEW GT SCH ×3 (08:52→17:21)
[2018-10-23] MEDS: PROSTAT (PYXIS) 30 ML UDC GT SCH ×3 (08:52→17:22)
[2018-10-23] MEDS: MULTIVIT W/MINERALS 1 TAB TABLET GT SCH (08:52)
[2018-10-23] MEDS: ESCITALOPRAM OXALATE (10 MG) 10 MG TABLET GT SCH (08:52)
[2018-10-23] MEDS: ASCORBIC ACID 500 MG TABLET GT SCH ×2 (08:52→17:22)
[2018-10-23] MEDS: BACLOFEN (10 MG) 10 MG TABLET GT SCH ×4 (08:52→21:53)
[2018-10-23] MEDS: GABAPENTIN 250 MG/5 ML GT SCH ×3 (08:52→17:21)
[2018-10-23] MEDS: CALCIUM CARBONATE 500 MG TAB.CHEW GT SCH ×3 (08:52→17:22)
[2018-10-23] MEDS: METHADONE HCL 10 MG TABLET GT SCH ×2 (08:52→17:22)
[2018-10-23] MEDS: CALCITRIOL 0.25 MCG CAPSULE PO SCH (08:53)
[2018-10-23] MEDS: HYDROGEN PEROXIDE 480 ML BOTTLE TP SCH ×2 (09:00→21:00)
[2018-10-23] MEDS: HYDROCODONE/APAP 5/325MG 1 EACH TABLET GT SCH ×2 (10:00→21:54)
[2018-10-23] MEDS: NYSTATIN/TRIAMCIN 15 GM CREAM 15 GM TUBE TP SCH ×2 (10:30→21:56)
[2018-10-23] MEDS: ZINC OXIDE 30 GM TUBE TP SCH ×2 (10:30→21:56)
[2018-10-23] MEDS: THERAHONEY GEL 1.5 OZ TUBE TP SCH ×4 (10:30→21:56)
--- NOTE | 2018-10-23 11:45 | NUR ---
Seen and examined by Dr. Seaman, aware of current weight, NNO given.
--- NOTE | 2018-10-23 19:18 | NUR ---
SEEN AND EXAMINED BY CARLI VELASCO. CSM CONSULTANT IS MADE AWARE OF CURRENT WEIGHT. CARLI GOLL WITH NO NEW ORDERS.
[2018-10-23 19:54] VITALS: BP 108/65
[2018-10-23] MEDS: ENOXAPARIN SODIUM 40 MG/0.4 ML DISP.SYRIN SQ SCH (21:55)
[2018-10-23] MEDS: ZINC SULFATE 220 MG CAPSULE GT SCH (21:56)
[2018-10-23] MEDS: ATORVASTATIN 10 MG TABLET GT SCH (21:56)
[2018-10-23] MEDS: POLYETHYLENE GLYCOL 3350 17 GM POWD.PACK GT SCH (21:57)
[2018-10-24] MEDS: IPRATROPIUM NEB FS 0.5 MG/2.5 ML AMPUL.NEB NEB SCH ×4 (01:20→19:55)
[2018-10-24] MEDS: SUCRALFATE 1 G/10 ML UDC GT SCH ×4 (06:06→20:19)
[2018-10-24 08:00] VITALS: BP 126/65
[2018-10-24] MEDS: HYDROGEN PEROXIDE 480 ML BOTTLE TP SCH ×2 (08:01→20:21)
--- NOTE | 2018-10-24 09:09 | NUR ---
Late Entry for 10/23/18 SW reminded patient's responsible alliance party, Vilma [phone] of the October Family Support group taking place 10/24/18 from 11am-12pm in the old admin. conference room.
[2018-10-24] MEDS: ACIDOPHILUS/BULGARICUS 1 EACH TAB.CHEW GT SCH ×3 (09:33→16:53)
[2018-10-24] MEDS: PROSTAT (PYXIS) 30 ML UDC GT SCH ×3 (09:33→16:53)
[2018-10-24] MEDS: MULTIVIT W/MINERALS 1 TAB TABLET GT SCH (09:33)
[2018-10-24] MEDS: CALCITRIOL 0.25 MCG CAPSULE PO SCH (09:33)
[2018-10-24] MEDS: CALCIUM CARBONATE 500 MG TAB.CHEW GT SCH ×3 (09:33→16:53)
[2018-10-24] MEDS: BACLOFEN (10 MG) 10 MG TABLET GT SCH ×4 (09:33→20:19)
[2018-10-24] MEDS: ASCORBIC ACID 500 MG TABLET GT SCH ×2 (09:33→16:53)
[2018-10-24] MEDS: ESCITALOPRAM OXALATE (10 MG) 10 MG TABLET GT SCH (09:33)
[2018-10-24] MEDS: GABAPENTIN 250 MG/5 ML GT SCH ×3 (09:33→16:53)
[2018-10-24] MEDS: FAMOTIDINE (20 MG) 20 MG TABLET GT SCH ×2 (09:33→20:20)
[2018-10-24] MEDS: METHADONE HCL 10 MG TABLET GT SCH ×2 (09:33→16:52)
[2018-10-24] MEDS: HYDROCODONE/APAP 5/325MG 1 EACH TABLET GT SCH ×2 (11:00→20:20)
[2018-10-24] MEDS: NYSTATIN/TRIAMCIN 15 GM CREAM 15 GM TUBE TP SCH ×2 (12:00→20:22)
[2018-10-24] MEDS: THERAHONEY GEL 1.5 OZ TUBE TP SCH ×4 (12:00→20:22)
[2018-10-24] MEDS: ZINC OXIDE 30 GM TUBE TP SCH ×2 (12:00→20:22)
--- NOTE | 2018-10-24 12:00 | NUR ---
Jackman-catheter noted dislodged with inflated balloon outside. New Jackman-catheter changed as ordered. Tolerated procedure well with clean yellow urine. No acute distress noted. Tubing secured to prevent pulling. All needs met and attended.
[2018-10-24 20:06] VITALS: BP 112/70
[2018-10-24] MEDS: ZINC SULFATE 220 MG CAPSULE GT SCH (20:20)
[2018-10-24] MEDS: ENOXAPARIN SODIUM 40 MG/0.4 ML DISP.SYRIN SQ SCH (20:22)
[2018-10-24] MEDS: POLYETHYLENE GLYCOL 3350 17 GM POWD.PACK GT SCH (21:27)
[2018-10-24] MEDS: ATORVASTATIN 10 MG TABLET GT SCH (21:27)
[2018-10-25] MEDS: IPRATROPIUM NEB FS 0.5 MG/2.5 ML AMPUL.NEB NEB SCH ×4 (01:52→20:05)
[2018-10-25] MEDS: SUCRALFATE 1 G/10 ML UDC GT SCH ×4 (05:49→21:18)
[2018-10-25 07:44] VITALS: BP 122/73
[2018-10-25] MEDS: HYDROGEN PEROXIDE 480 ML BOTTLE TP SCH ×2 (08:02→21:24)
[2018-10-25] MEDS: CALCIUM CARBONATE 500 MG TAB.CHEW GT SCH ×3 (08:49→16:38)
[2018-10-25] MEDS: ASCORBIC ACID 500 MG TABLET GT SCH ×2 (08:49→16:38)
[2018-10-25] MEDS: MULTIVIT W/MINERALS 1 TAB TABLET GT SCH (08:49)
[2018-10-25] MEDS: GABAPENTIN 250 MG/5 ML GT SCH ×3 (08:49→16:38)
[2018-10-25] MEDS: ACIDOPHILUS/BULGARICUS 1 EACH TAB.CHEW GT SCH ×3 (08:49→16:38)
[2018-10-25] MEDS: PROSTAT (PYXIS) 30 ML UDC GT SCH ×3 (08:49→16:38)
[2018-10-25] MEDS: FAMOTIDINE (20 MG) 20 MG TABLET GT SCH ×2 (08:49→21:22)
[2018-10-25] MEDS: BACLOFEN (10 MG) 10 MG TABLET GT SCH ×4 (08:49→21:21)
[2018-10-25] MEDS: METHADONE HCL 10 MG TABLET GT SCH ×2 (08:49→16:38)
[2018-10-25] MEDS: CALCITRIOL 0.25 MCG CAPSULE PO SCH (08:49)
[2018-10-25] MEDS: ESCITALOPRAM OXALATE (10 MG) 10 MG TABLET GT SCH (08:49)
[2018-10-25] MEDS: HYDROCODONE/APAP 5/325MG 1 EACH TABLET GT SCH ×2 (10:30→21:34)
[2018-10-25] MEDS: THERAHONEY GEL 1.5 OZ TUBE TP SCH ×4 (11:00→21:25)
[2018-10-25] MEDS: ZINC OXIDE 30 GM TUBE TP SCH ×2 (11:00→21:25)
[2018-10-25] MEDS: NYSTATIN/TRIAMCIN 15 GM CREAM 15 GM TUBE TP SCH ×2 (11:00→21:24)
[2018-10-25 19:58] VITALS: BP 100/59
[2018-10-25 20:00] VITALS: BP 100/59
[2018-10-25] MEDS: ZINC SULFATE 220 MG CAPSULE GT SCH (21:21)
[2018-10-25] MEDS: ENOXAPARIN SODIUM 40 MG/0.4 ML DISP.SYRIN SQ SCH (21:23)
[2018-10-25] MEDS: POLYETHYLENE GLYCOL 3350 17 GM POWD.PACK GT SCH (21:26)
[2018-10-25] MEDS: ATORVASTATIN 10 MG TABLET GT SCH (21:28)
[2018-10-26] MEDS: IPRATROPIUM NEB FS 0.5 MG/2.5 ML AMPUL.NEB NEB SCH ×4 (01:06→19:41)
[2018-10-26] MEDS: SUCRALFATE 1 G/10 ML UDC GT SCH ×4 (05:45→21:24)
[2018-10-26 07:57] VITALS: BP 146/66
[2018-10-26] MEDS: HYDROGEN PEROXIDE 480 ML BOTTLE TP SCH ×2 (09:00→21:07)
[2018-10-26] MEDS: METHADONE HCL 10 MG TABLET GT SCH ×2 (09:31→17:44)
[2018-10-26] MEDS: GABAPENTIN 250 MG/5 ML GT SCH ×3 (09:38→17:43)
[2018-10-26] MEDS: ESCITALOPRAM OXALATE (10 MG) 10 MG TABLET GT SCH (09:40)
[2018-10-26] MEDS: ACIDOPHILUS/BULGARICUS 1 EACH TAB.CHEW GT SCH ×3 (09:40→17:44)
[2018-10-26] MEDS: PROSTAT (PYXIS) 30 ML UDC GT SCH ×3 (09:40→17:44)
[2018-10-26] MEDS: FAMOTIDINE (20 MG) 20 MG TABLET GT SCH ×2 (09:40→21:25)
[2018-10-26] MEDS: BACLOFEN (10 MG) 10 MG TABLET GT SCH ×4 (09:40→21:24)
[2018-10-26] MEDS: CALCIUM CARBONATE 500 MG TAB.CHEW GT SCH ×3 (09:40→17:44)
[2018-10-26] MEDS: CALCITRIOL 0.25 MCG CAPSULE PO SCH (09:41)
[2018-10-26] MEDS: ASCORBIC ACID 500 MG TABLET GT SCH ×2 (09:41→17:44)
[2018-10-26] MEDS: MULTIVIT W/MINERALS 1 TAB TABLET GT SCH (09:43)
[2018-10-26] MEDS: HYDROCODONE/APAP 5/325MG 1 EACH TABLET GT SCH ×2 (10:45→21:25)
[2018-10-26] MEDS: ZINC OXIDE 30 GM TUBE TP SCH ×2 (11:30→21:54)
[2018-10-26] MEDS: NYSTATIN/TRIAMCIN 15 GM CREAM 15 GM TUBE TP SCH ×2 (11:30→21:53)
[2018-10-26] MEDS: THERAHONEY GEL 1.5 OZ TUBE TP SCH ×4 (11:30→21:54)
--- NOTE | 2018-10-26 15:45 | NUR ---
Resident participated in BIMS and pain interviews. Explained risks of not turning/repositioning, reviewed his care plan goal about it and encouraged to comply. Resident understood and smiled.
[2018-10-26 20:08] VITALS: BP 110/70
[2018-10-26] MEDS: ATORVASTATIN 10 MG TABLET GT SCH (21:25)
[2018-10-26] MEDS: ENOXAPARIN SODIUM 40 MG/0.4 ML DISP.SYRIN SQ SCH (21:25)
[2018-10-26] MEDS: ZINC SULFATE 220 MG CAPSULE GT SCH (21:25)
[2018-10-26] MEDS: POLYETHYLENE GLYCOL 3350 17 GM POWD.PACK GT SCH (21:26)
[2018-10-27] MEDS: IPRATROPIUM NEB FS 0.5 MG/2.5 ML AMPUL.NEB NEB SCH ×4 (01:32→19:39)
[2018-10-27] MEDS: METHOCARBAMOL (750MG) 750 MG TABLET GT PRN (05:52)
[2018-10-27] MEDS: SUCRALFATE 1 G/10 ML UDC GT SCH ×4 (05:52→21:19)
[2018-10-27 08:17] VITALS: BP 140/79
[2018-10-27] MEDS: HYDROGEN PEROXIDE 480 ML BOTTLE TP SCH ×2 (09:00→21:17)
[2018-10-27] MEDS: PROSTAT (PYXIS) 30 ML UDC GT SCH ×3 (09:01→16:41)
[2018-10-27] MEDS: ACIDOPHILUS/BULGARICUS 1 EACH TAB.CHEW GT SCH ×3 (09:01→16:41)
[2018-10-27] MEDS: GABAPENTIN 250 MG/5 ML GT SCH ×3 (09:01→16:41)
[2018-10-27] MEDS: ASCORBIC ACID 500 MG TABLET GT SCH ×2 (09:01→16:41)
[2018-10-27] MEDS: FAMOTIDINE (20 MG) 20 MG TABLET GT SCH ×2 (09:01→21:19)
[2018-10-27] MEDS: CALCITRIOL 0.25 MCG CAPSULE PO SCH (09:01)
[2018-10-27] MEDS: BACLOFEN (10 MG) 10 MG TABLET GT SCH ×4 (09:01→21:19)
[2018-10-27] MEDS: METHADONE HCL 10 MG TABLET GT SCH ×2 (09:01→16:41)
[2018-10-27] MEDS: ESCITALOPRAM OXALATE (10 MG) 10 MG TABLET GT SCH (09:01)
[2018-10-27] MEDS: CALCIUM CARBONATE 500 MG TAB.CHEW GT SCH ×3 (09:01→16:41)
[2018-10-27] MEDS: MULTIVIT W/MINERALS 1 TAB TABLET GT SCH (09:01)
[2018-10-27] MEDS: HYDROCODONE/APAP 5/325MG 1 EACH TABLET GT SCH ×2 (10:15→21:19)
[2018-10-27] MEDS: THERAHONEY GEL 1.5 OZ TUBE TP SCH ×4 (11:00→21:47)
[2018-10-27] MEDS: NYSTATIN/TRIAMCIN 15 GM CREAM 15 GM TUBE TP SCH ×2 (11:00→21:47)
[2018-10-27] MEDS: ZINC OXIDE 30 GM TUBE TP SCH (11:00)
[2018-10-27 20:25] VITALS: BP 114/76
[2018-10-27] MEDS: ZINC SULFATE 220 MG CAPSULE GT SCH (21:19)
[2018-10-27] MEDS: ATORVASTATIN 10 MG TABLET GT SCH (21:20)
[2018-10-27] MEDS: ENOXAPARIN SODIUM 40 MG/0.4 ML DISP.SYRIN SQ SCH (21:20)
[2018-10-27] MEDS: POLYETHYLENE GLYCOL 3350 17 GM POWD.PACK GT SCH (21:20)
[2018-10-28] MEDS: IPRATROPIUM NEB FS 0.5 MG/2.5 ML AMPUL.NEB NEB SCH ×4 (01:22→19:28)
[2018-10-28] MEDS: SUCRALFATE 1 G/10 ML UDC GT SCH ×4 (05:59→21:10)
[2018-10-28] MEDS: HYDROCODONE/APAP 5/325MG 1 EACH TABLET GT PRN (06:14)
[2018-10-28 08:06] VITALS: BP 125/74
[2018-10-28] MEDS: HYDROGEN PEROXIDE 480 ML BOTTLE TP SCH ×2 (09:00→21:00)
[2018-10-28] MEDS: PROSTAT (PYXIS) 30 ML UDC GT SCH ×3 (09:02→16:46)
[2018-10-28] MEDS: MULTIVIT W/MINERALS 1 TAB TABLET GT SCH (09:02)
[2018-10-28] MEDS: ASCORBIC ACID 500 MG TABLET GT SCH ×2 (09:02→16:46)
[2018-10-28] MEDS: BACLOFEN (10 MG) 10 MG TABLET GT SCH ×4 (09:02→21:10)
[2018-10-28] MEDS: CALCIUM CARBONATE 500 MG TAB.CHEW GT SCH ×3 (09:02→16:46)
[2018-10-28] MEDS: CALCITRIOL 0.25 MCG CAPSULE PO SCH (09:02)
[2018-10-28] MEDS: ACIDOPHILUS/BULGARICUS 1 EACH TAB.CHEW GT SCH ×3 (09:02→16:46)
[2018-10-28] MEDS: FAMOTIDINE (20 MG) 20 MG TABLET GT SCH ×2 (09:02→21:12)
[2018-10-28] MEDS: GABAPENTIN 250 MG/5 ML GT SCH ×3 (09:03→16:46)
[2018-10-28] MEDS: ESCITALOPRAM OXALATE (10 MG) 10 MG TABLET GT SCH (09:03)
[2018-10-28] MEDS: METHADONE HCL 10 MG TABLET GT SCH ×2 (09:52→17:38)
[2018-10-28] MEDS: HYDROCODONE/APAP 5/325MG 1 EACH TABLET GT SCH ×2 (11:15→21:12)
[2018-10-28] MEDS: THERAHONEY GEL 1.5 OZ TUBE TP SCH ×4 (12:00→21:13)
[2018-10-28] MEDS: NYSTATIN/TRIAMCIN 15 GM CREAM 15 GM TUBE TP SCH ×2 (12:00→21:13)
[2018-10-28 20:26] VITALS: BP 101/68
[2018-10-28] MEDS: ZINC SULFATE 220 MG CAPSULE GT SCH (21:12)
[2018-10-28] MEDS: ENOXAPARIN SODIUM 40 MG/0.4 ML DISP.SYRIN SQ SCH (21:13)
[2018-10-28] MEDS: ATORVASTATIN 10 MG TABLET GT SCH (21:13)
[2018-10-28] MEDS: POLYETHYLENE GLYCOL 3350 17 GM POWD.PACK GT SCH (21:14)
[2018-10-29] MEDS: IPRATROPIUM NEB FS 0.5 MG/2.5 ML AMPUL.NEB NEB SCH ×4 (01:25→19:23)
[2018-10-29] MEDS: SUCRALFATE 1 G/10 ML UDC GT SCH ×4 (05:39→21:09)
[2018-10-29] MEDS: HYDROGEN PEROXIDE 480 ML BOTTLE TP SCH ×2 (07:12→21:00)
[2018-10-29 07:48] VITALS: BP 127/72
[2018-10-29] MEDS: BACLOFEN (10 MG) 10 MG TABLET GT SCH ×4 (08:21→21:09)
[2018-10-29] MEDS: ESCITALOPRAM OXALATE (10 MG) 10 MG TABLET GT SCH (08:21)
[2018-10-29] MEDS: GABAPENTIN 250 MG/5 ML GT SCH ×3 (08:21→16:48)
[2018-10-29] MEDS: ACIDOPHILUS/BULGARICUS 1 EACH TAB.CHEW GT SCH ×3 (08:21→16:48)
[2018-10-29] MEDS: CALCITRIOL 0.25 MCG CAPSULE PO SCH (08:24)
[2018-10-29] MEDS: FAMOTIDINE (20 MG) 20 MG TABLET GT SCH ×2 (08:24→21:11)
[2018-10-29] MEDS: MULTIVIT W/MINERALS 1 TAB TABLET GT SCH (08:24)
[2018-10-29] MEDS: CALCIUM CARBONATE 500 MG TAB.CHEW GT SCH ×3 (08:24→16:51)
[2018-10-29] MEDS: PROSTAT (PYXIS) 30 ML UDC GT SCH ×3 (08:24→16:51)
[2018-10-29] MEDS: ASCORBIC ACID 500 MG TABLET GT SCH ×2 (08:24→16:51)
[2018-10-29] MEDS: METHADONE HCL 10 MG TABLET GT SCH ×2 (08:24→16:51)
[2018-10-29] MEDS: HYDROCODONE/APAP 5/325MG 1 EACH TABLET GT SCH ×2 (10:00→21:11)
[2018-10-29] MEDS: THERAHONEY GEL 1.5 OZ TUBE TP SCH ×4 (10:40→21:12)
[2018-10-29] MEDS: NYSTATIN/TRIAMCIN 15 GM CREAM 15 GM TUBE TP SCH ×2 (10:40→21:12)
--- NOTE | 2018-10-29 15:34 | NUR ---
RT NOTE: RECEIVED PT ON 28% COOL AEROSOL. NO RESPIRATORY DISTRESS NOTED. TRACH CHECKED SECURE AND PATENT. SXD AND LAVAGED PT Q ROUND AND NEEDED. TXS GIVEN ORDERED WITH NO ADVERSE REACTIONS NOTED. TRACH/ORAL CARE DONE. SPARE TRACH AND AMBU BAG @ BEDSIDE. NOC VENT @ BEDSIDE PLUGGED INTO RED OUTLET.
[2018-10-29 20:28] VITALS: BP 103/65
[2018-10-29] MEDS: ENOXAPARIN SODIUM 40 MG/0.4 ML DISP.SYRIN SQ SCH (21:12)
[2018-10-29] MEDS: ATORVASTATIN 10 MG TABLET GT SCH (21:13)
[2018-10-29] MEDS: POLYETHYLENE GLYCOL 3350 17 GM POWD.PACK GT SCH (21:13)
[2018-10-29] MEDS: ZINC SULFATE 220 MG CAPSULE GT SCH (21:13)
[2018-10-30] MEDS: IPRATROPIUM NEB FS 0.5 MG/2.5 ML AMPUL.NEB NEB SCH ×4 (01:20→20:03)
[2018-10-30] MEDS: SUCRALFATE 1 G/10 ML UDC GT SCH ×4 (05:39→20:30)
[2018-10-30 07:49] VITALS: BP 142/88
--- NOTE | 2018-10-30 08:23 | NUR ---
RT NOTE: RECEIVED PT ON 28% COOL AEROSOL. NO RESPIRATORY DISTRESS NOTED. TRACH CHECKED SECURE AND PATENT. SXD AND LAVAGED PT Q ROUND AND NEEDED. TXS GIVEN ORDERED WITH NO ADVERSE REACTIONS NOTED. SPARE TRACH AND AMBU BAG @ BEDSIDE. NOC VENT @ BEDSIDE PLUGGED INTO RED OUTLET.
[2018-10-30] MEDS: PROSTAT (PYXIS) 30 ML UDC GT SCH ×3 (09:01→16:25)
[2018-10-30] MEDS: CALCIUM CARBONATE 500 MG TAB.CHEW GT SCH ×3 (09:01→16:25)
[2018-10-30] MEDS: METHADONE HCL 10 MG TABLET GT SCH ×3 (09:01→17:25)
[2018-10-30] MEDS: MULTIVIT W/MINERALS 1 TAB TABLET GT SCH (09:01)
[2018-10-30] MEDS: FAMOTIDINE (20 MG) 20 MG TABLET GT SCH ×2 (09:01→21:47)
[2018-10-30] MEDS: BACLOFEN (10 MG) 10 MG TABLET GT SCH ×4 (09:01→21:45)
[2018-10-30] MEDS: ACIDOPHILUS/BULGARICUS 1 EACH TAB.CHEW GT SCH ×3 (09:01→16:24)
[2018-10-30] MEDS: GABAPENTIN 250 MG/5 ML GT SCH ×3 (09:01→16:24)
[2018-10-30] MEDS: ASCORBIC ACID 500 MG TABLET GT SCH ×2 (09:01→16:25)
[2018-10-30] MEDS: ESCITALOPRAM OXALATE (10 MG) 10 MG TABLET GT SCH (09:01)
[2018-10-30] MEDS: CALCITRIOL 0.25 MCG CAPSULE PO SCH (09:01)
[2018-10-30] MEDS: HYDROGEN PEROXIDE 480 ML BOTTLE TP SCH ×2 (09:05→20:03)
[2018-10-30] MEDS: HYDROCODONE/APAP 5/325MG 1 EACH TABLET GT SCH ×2 (10:15→21:47)
[2018-10-30] MEDS: NYSTATIN/TRIAMCIN 15 GM CREAM 15 GM TUBE TP SCH ×2 (11:00→21:48)
[2018-10-30] MEDS: THERAHONEY GEL 1.5 OZ TUBE TP SCH ×4 (11:00→21:48)
--- NOTE | 2018-10-30 16:07 | NUR ---
SW completed office services coordinator portion of 2nd Quarter MDS. The patient's responsible green party is his sister, Vilma Marley [phone]. The patient is Full Code on trach and ventilator support. The patient may communicate through gestures, mouthing words or by utilizing a voice box. The patient's last Optometry appointment with on 07/13/18 and is eligible for his next appointment until 04/15/2019. The patient's annual dental exam and cleaning will be scheduled for the month of October.
[2018-10-30 20:17] VITALS: BP 113/78
[2018-10-30] MEDS: ZINC SULFATE 220 MG CAPSULE GT SCH (21:47)
[2018-10-30] MEDS: ATORVASTATIN 10 MG TABLET GT SCH (21:48)
[2018-10-30] MEDS: ENOXAPARIN SODIUM 40 MG/0.4 ML DISP.SYRIN SQ SCH (21:48)
[2018-10-30] MEDS: POLYETHYLENE GLYCOL 3350 17 GM POWD.PACK GT SCH (21:49)
[2018-10-31] MEDS: IPRATROPIUM NEB FS 0.5 MG/2.5 ML AMPUL.NEB NEB SCH ×4 (00:33→20:03)
[2018-10-31] MEDS: HYDROCODONE/APAP 10/325MG 1 EA TABLET PO PRN (01:37)
--- NOTE | 2018-10-31 03:46 | NUR ---
PT RCVD TRACH'D ON COOL AEROSOL WITH CHARTED SETTINGS. PT TERRANCE TX WELL. SX DONE. PT TRACH IS PATENT AND SECURE. AMBU BAG AT BEDSIDE. Addendum: 10/31/18 at 0347 by LUCIANA TRIMBLE RT Amended: Links added.
[2018-10-31] MEDS: SUCRALFATE 1 G/10 ML UDC GT SCH ×4 (05:34→20:54)
[2018-10-31 07:54] VITALS: BP 134/46
[2018-10-31] MEDS: HYDROGEN PEROXIDE 480 ML BOTTLE TP SCH ×2 (07:54→20:03)
[2018-10-31] MEDS: NYSTATIN/TRIAMCIN 15 GM CREAM 15 GM TUBE TP SCH ×2 (09:00→21:41)
[2018-10-31] MEDS: THERAHONEY GEL 1.5 OZ TUBE TP SCH ×4 (09:00→21:42)
[2018-10-31] MEDS: GABAPENTIN 250 MG/5 ML GT SCH ×3 (09:00→16:31)
[2018-10-31] MEDS: ACIDOPHILUS/BULGARICUS 1 EACH TAB.CHEW GT SCH ×3 (09:41→16:31)
[2018-10-31] MEDS: BACLOFEN (10 MG) 10 MG TABLET GT SCH ×4 (09:41→21:40)
[2018-10-31] MEDS: ESCITALOPRAM OXALATE (10 MG) 10 MG TABLET GT SCH (09:41)
[2018-10-31] MEDS: METHADONE HCL 10 MG TABLET GT SCH ×2 (09:41→16:32)
[2018-10-31] MEDS: CALCITRIOL 0.25 MCG CAPSULE PO SCH (09:42)
[2018-10-31] MEDS: ASCORBIC ACID 500 MG TABLET GT SCH ×2 (09:42→16:32)
[2018-10-31] MEDS: MULTIVIT W/MINERALS 1 TAB TABLET GT SCH (09:42)
[2018-10-31] MEDS: PROSTAT (PYXIS) 30 ML UDC GT SCH ×3 (09:42→16:32)
[2018-10-31] MEDS: FAMOTIDINE (20 MG) 20 MG TABLET GT SCH ×2 (09:42→21:41)
[2018-10-31] MEDS: HYDROCODONE/APAP 5/325MG 1 EACH TABLET GT SCH ×2 (09:42→21:41)
[2018-10-31] MEDS: CALCIUM CARBONATE 500 MG TAB.CHEW GT SCH ×3 (09:42→16:32)
--- NOTE | 2018-10-31 09:56 | NUR ---
RAVI called dental office [phone] and spoke to Mysyossi to schedule dental exam and cleaning for resident. Per Mystery Dr. Lopes is available to see the patient on 11/14/18 12:30 pm. Charge Nurse and family, Vilma Wagner [phone] were notified and are agreeable to plan. Vilma informed RAVI that she will be out of town for a couple of weeks but can still be contacted at the usual number [phone] in case of emergencies.
--- NOTE | 2018-10-31 12:00 | NUR ---
RT RT: RECEIVED PT TRACH'D ON CA WITH SETTINGS PER MD ORDER. SPARE TRACH AND AMBU BAG AT HEAD OF BED. TX GIVEN ORDERED. NO ADVERSE REACTIONS OBSERVED. SUCTIONED MODERATE AMOUNTS OF THICK, YELLOW SECRETIONS. TRACH CARE DONE. AIRWAY SECURED AND PATENT. NO SOB OR SIGNS OF DISTRESS NOTED AT THIS TIME. WILL CONTINUE TO MONITOR PT FOR ANY CHANGE OF CONDITION.
--- NOTE | 2018-10-31 16:19 | NUR ---
RAVI Faxed residents face sheet to dental office [phone] for dental appointment on 11/14/18 at 12:[address] Lopes.
--- NOTE | 2018-10-31 20:03 | NUR ---
RT NOTE: RECEIVED TRACH PT ON COOL AEROSOL. AMBU BAG @ BEDSIDE. Q6 BREATHING TX GIVEN PER MD ORDERS WITH NO ADVERSE REACTION NOTED. SX DONE PRN. TRACH CARE DONE. TRACH PATENT AND SECURED. NO RESP DISTRESS NOTED AT THIS TIME. WILL PLACE PATIENT ON VENT AT MIDNIGHT. WILL CONTINUE TO MONITOR PT. Addendum: 11/01/18 at 0236 by SOBIA VILLA RT Amended: Links added.
[2018-10-31 20:23] VITALS: BP 102/65
[2018-10-31] MEDS: ENOXAPARIN SODIUM 40 MG/0.4 ML DISP.SYRIN SQ SCH (21:00)
[2018-10-31] MEDS: ZINC SULFATE 220 MG CAPSULE GT SCH (21:41)
[2018-10-31] MEDS: ATORVASTATIN 10 MG TABLET GT SCH (22:11)
[2018-10-31] MEDS: POLYETHYLENE GLYCOL 3350 17 GM POWD.PACK GT SCH (22:12)
--- NOTE | 2018-10-31 23:51 | NUR ---
RT NOTE: PLACED PT ON VENT AT THIS TIME. TRACH IS PATENT AND SECURED. MACHINE ASSISTANT DONE. SX DONE PRN. VENT PLUGGED INTO RED OUTLET. ALARMS ON AND AUDIBLE. NAIMA BAG @ BEDSIDE. NO RESP DISTRESS AT THIS TIME. WILL CONT TO MONITOR PT. Addendum: 11/01/18 at 0241 by SOBIA VILLA RT Amended: Links added.
[2018-11-01] MEDS: IPRATROPIUM NEB FS 0.5 MG/2.5 ML AMPUL.NEB NEB SCH ×4 (01:55→20:21)
[2018-11-01] MEDS: HYDROCODONE/APAP 5/325MG 1 EACH TABLET GT PRN (02:05)
[2018-11-01] MEDS: HYDROCODONE/APAP 10/325MG 1 EA TABLET PO PRN ×2 (02:07→23:19)
[2018-11-01] MEDS: SUCRALFATE 1 G/10 ML UDC GT SCH ×4 (06:23→20:51)
[2018-11-01 07:42] VITALS: BP 135/81
[2018-11-01] MEDS: CALCIUM CARBONATE 500 MG TAB.CHEW GT SCH ×3 (09:00→17:18)
[2018-11-01] MEDS: MULTIVIT W/MINERALS 1 TAB TABLET GT SCH (09:00)
[2018-11-01] MEDS: BACLOFEN (10 MG) 10 MG TABLET GT SCH ×4 (09:00→20:52)
[2018-11-01] MEDS: ESCITALOPRAM OXALATE (10 MG) 10 MG TABLET GT SCH (09:00)
[2018-11-01] MEDS: FAMOTIDINE (20 MG) 20 MG TABLET GT SCH ×2 (09:00→20:52)
[2018-11-01] MEDS: ASCORBIC ACID 500 MG TABLET GT SCH ×2 (09:00→17:18)
[2018-11-01] MEDS: PROSTAT (PYXIS) 30 ML UDC GT SCH ×3 (09:00→17:18)
[2018-11-01] MEDS: HYDROGEN PEROXIDE 480 ML BOTTLE TP SCH ×2 (09:00→20:52)
[2018-11-01] MEDS: ACIDOPHILUS/BULGARICUS 1 EACH TAB.CHEW GT SCH ×3 (09:00→17:17)
[2018-11-01] MEDS: GABAPENTIN 250 MG/5 ML GT SCH ×3 (09:00→17:17)
[2018-11-01] MEDS: CALCITRIOL 0.25 MCG CAPSULE PO SCH (09:00)
[2018-11-01] MEDS: HYDROCODONE/APAP 5/325MG 1 EACH TABLET GT SCH ×2 (10:00→20:52)
[2018-11-01] MEDS: THERAHONEY GEL 1.5 OZ TUBE TP SCH ×4 (10:30→20:52)
[2018-11-01] MEDS: NYSTATIN/TRIAMCIN 15 GM CREAM 15 GM TUBE TP SCH ×2 (10:30→20:52)
--- NOTE | 2018-11-01 11:10 | NUR ---
Dr Seaman ordered pain management consult with Dr Serge Martinez. Called his office and left message with Janiya.
[2018-11-01] MEDS: METHADONE HCL 10 MG TABLET GT SCH (17:17)
[2018-11-01 20:27] VITALS: BP 101/64
[2018-11-01] MEDS: ZINC SULFATE 220 MG CAPSULE GT SCH (20:52)
[2018-11-01] MEDS: ENOXAPARIN SODIUM 40 MG/0.4 ML DISP.SYRIN SQ SCH (20:53)
[2018-11-01] MEDS: POLYETHYLENE GLYCOL 3350 17 GM POWD.PACK GT SCH (21:00)
[2018-11-01] MEDS: ATORVASTATIN 10 MG TABLET GT SCH (21:00)
[2018-11-02] MEDS: IPRATROPIUM NEB FS 0.5 MG/2.5 ML AMPUL.NEB NEB SCH ×4 (01:10→19:36)
[2018-11-02] MEDS: SUCRALFATE 1 G/10 ML UDC GT SCH ×4 (05:34→21:04)
[2018-11-02 07:43] VITALS: BP 122/69
[2018-11-02] MEDS: HYDROGEN PEROXIDE 480 ML BOTTLE TP SCH ×2 (08:33→21:08)
[2018-11-02] MEDS: GABAPENTIN 250 MG/5 ML GT SCH ×3 (09:38→17:07)
[2018-11-02] MEDS: BACLOFEN (10 MG) 10 MG TABLET GT SCH ×4 (09:38→21:04)
[2018-11-02] MEDS: ESCITALOPRAM OXALATE (10 MG) 10 MG TABLET GT SCH (09:38)
[2018-11-02] MEDS: ACIDOPHILUS/BULGARICUS 1 EACH TAB.CHEW GT SCH ×3 (09:38→17:07)
[2018-11-02] MEDS: CALCITRIOL 0.25 MCG CAPSULE PO SCH (09:39)
[2018-11-02] MEDS: CALCIUM CARBONATE 500 MG TAB.CHEW GT SCH ×3 (09:39→17:08)
[2018-11-02] MEDS: ASCORBIC ACID 500 MG TABLET GT SCH ×2 (09:39→17:08)
[2018-11-02] MEDS: MULTIVIT W/MINERALS 1 TAB TABLET GT SCH (09:39)
[2018-11-02] MEDS: FAMOTIDINE (20 MG) 20 MG TABLET GT SCH ×2 (09:39→21:06)
[2018-11-02] MEDS: HYDROCODONE/APAP 5/325MG 1 EACH TABLET GT SCH ×2 (09:39→21:06)
[2018-11-02] MEDS: METHADONE HCL 10 MG TABLET GT SCH ×2 (09:39→17:08)
[2018-11-02] MEDS: PROSTAT (PYXIS) 30 ML UDC GT SCH ×3 (09:39→17:08)
[2018-11-02] MEDS: THERAHONEY GEL 1.5 OZ TUBE TP SCH ×4 (10:10→21:00)
--- NOTE | 2018-11-02 13:00 | NUR ---
Seen and examined by Dr. De La Vega, no new order given.
--- NOTE | 2018-11-02 16:13 | NUR ---
RT NOTE: RECEIVED PT ON 28% COOL AEROSOL. NO RESPIRATORY DISTRESS NOTED. TRACH CHECKED SECURE AND PATENT. SXD AND LAVAGED PT Q ROUND AND NEEDED. TXS GIVEN ORDERED WITH NO ADVERSE REACTIONS NOTED. TRACH CARE DONE. SPARE TRACH AND AMBU BAG @ BEDSIDE. BEDSIDE VENT PLUGGED INTO RED OUTLET.
[2018-11-02 20:00] VITALS: BP 110/74
[2018-11-02 20:38] VITALS: BP 110/74
[2018-11-02] MEDS: ZINC SULFATE 220 MG CAPSULE GT SCH (21:06)
[2018-11-02] MEDS: ENOXAPARIN SODIUM 40 MG/0.4 ML DISP.SYRIN SQ SCH (21:08)
[2018-11-02] MEDS: ATORVASTATIN 10 MG TABLET GT SCH (21:08)
[2018-11-02] MEDS: POLYETHYLENE GLYCOL 3350 17 GM POWD.PACK GT SCH (21:08)
[2018-11-03] MEDS: IPRATROPIUM NEB FS 0.5 MG/2.5 ML AMPUL.NEB NEB SCH ×4 (01:26→19:56)
--- NOTE | 2018-11-03 04:29 | NUR ---
RT PATIENT WAS RECEIVED ON COOL AEROSOL AND PLACED ON VENT ON NOTED VENT SETTINGS DURING MIDNIGHT PER MD ORDER.PATIENT STABLE THROUGHOUT THE SHIFT.HHN TREATMENT WAS GIVEN, NO ADVERSE REACTION NOTED. AIRWAY PATENT AND SECURED. WILL CONTINUE TO MONITOR. Addendum: 11/03/18 at 0434 by ROM ARAIZA RT Amended: Links added.
[2018-11-03] MEDS: SUCRALFATE 1 G/10 ML UDC GT SCH ×4 (07:02→20:30)
[2018-11-03 07:34] VITALS: BP 118/64
[2018-11-03] MEDS: HYDROGEN PEROXIDE 480 ML BOTTLE TP SCH ×2 (09:00→21:00)
[2018-11-03] MEDS: METHADONE HCL 10 MG TABLET GT SCH ×2 (09:24→16:59)
[2018-11-03] MEDS: GABAPENTIN 250 MG/5 ML GT SCH ×3 (09:24→16:59)
[2018-11-03] MEDS: HYDROCODONE/APAP 5/325MG 1 EACH TABLET GT SCH ×2 (09:24→21:00)
[2018-11-03] MEDS: FAMOTIDINE (20 MG) 20 MG TABLET GT SCH ×2 (09:24→21:00)
[2018-11-03] MEDS: PROSTAT (PYXIS) 30 ML UDC GT SCH ×3 (09:24→16:59)
[2018-11-03] MEDS: CALCITRIOL 0.25 MCG CAPSULE PO SCH (09:24)
[2018-11-03] MEDS: MULTIVIT W/MINERALS 1 TAB TABLET GT SCH (09:24)
[2018-11-03] MEDS: CALCIUM CARBONATE 500 MG TAB.CHEW GT SCH ×3 (09:24→16:59)
[2018-11-03] MEDS: ASCORBIC ACID 500 MG TABLET GT SCH ×2 (09:24→16:59)
[2018-11-03] MEDS: ACIDOPHILUS/BULGARICUS 1 EACH TAB.CHEW GT SCH ×3 (09:24→16:59)
[2018-11-03] MEDS: ESCITALOPRAM OXALATE (10 MG) 10 MG TABLET GT SCH (09:24)
[2018-11-03] MEDS: BACLOFEN (10 MG) 10 MG TABLET GT SCH ×4 (09:24→21:00)
[2018-11-03] MEDS: THERAHONEY GEL 1.5 OZ TUBE TP SCH ×4 (10:00→21:00)
[2018-11-03 20:52] VITALS: BP 106/74
[2018-11-03] MEDS: ENOXAPARIN SODIUM 40 MG/0.4 ML DISP.SYRIN SQ SCH (21:00)
[2018-11-03] MEDS: ZINC SULFATE 220 MG CAPSULE GT SCH (21:00)
[2018-11-03] MEDS: ATORVASTATIN 10 MG TABLET GT SCH (22:00)
[2018-11-03] MEDS: POLYETHYLENE GLYCOL 3350 17 GM POWD.PACK GT SCH (22:00)
[2018-11-04] MEDS: IPRATROPIUM NEB FS 0.5 MG/2.5 ML AMPUL.NEB NEB SCH ×4 (01:39→19:25)
[2018-11-04] MEDS: SUCRALFATE 1 G/10 ML UDC GT SCH ×4 (06:36→20:30)
[2018-11-04 07:03] VITALS: BP 109/57
[2018-11-04] MEDS: HYDROGEN PEROXIDE 480 ML BOTTLE TP SCH ×2 (08:19→21:59)
[2018-11-04] MEDS: ASCORBIC ACID 500 MG TABLET GT SCH ×2 (08:44→17:06)
[2018-11-04] MEDS: HYDROCODONE/APAP 5/325MG 1 EACH TABLET GT SCH ×2 (08:44→21:59)
[2018-11-04] MEDS: MULTIVIT W/MINERALS 1 TAB TABLET GT SCH (08:44)
[2018-11-04] MEDS: PROSTAT (PYXIS) 30 ML UDC GT SCH ×3 (08:44→17:06)
[2018-11-04] MEDS: CALCITRIOL 0.25 MCG CAPSULE PO SCH (08:44)
[2018-11-04] MEDS: METHADONE HCL 10 MG TABLET GT SCH ×2 (08:45→17:06)
[2018-11-04] MEDS: FAMOTIDINE (20 MG) 20 MG TABLET GT SCH ×2 (08:45→21:59)
[2018-11-04] MEDS: GABAPENTIN 250 MG/5 ML GT SCH ×3 (08:45→17:05)
[2018-11-04] MEDS: ESCITALOPRAM OXALATE (10 MG) 10 MG TABLET GT SCH (08:45)
[2018-11-04] MEDS: ACIDOPHILUS/BULGARICUS 1 EACH TAB.CHEW GT SCH ×3 (08:45→17:05)
[2018-11-04] MEDS: BACLOFEN (10 MG) 10 MG TABLET GT SCH ×4 (08:45→21:58)
[2018-11-04] MEDS: CALCIUM CARBONATE 500 MG TAB.CHEW GT SCH ×3 (08:45→17:06)
[2018-11-04] MEDS: THERAHONEY GEL 1.5 OZ TUBE TP SCH ×4 (09:54→22:00)
[2018-11-04] MEDS: HYDROCODONE/APAP 10/325MG 1 EA TABLET PO PRN (12:10)
--- NOTE | 2018-11-04 14:49 | NUR ---
Seen and examined by Dr. Seaman, NNO given at this time.
--- NOTE | 2018-11-04 16:00 | NUR ---
RT: RECEIVED PT TRACH'D ON CA WITH SETTINGS PER MD ORDER. SPARE TRACH AND AMBU BAG AT HEAD OF BED. TX GIVEN ORDERED. NO ADVERSE REACTIONS OBSERVED. SUCTIONED MODERATE AMOUNTS OF THICK, YELLOW SECRETIONS. TRACH CARE DONE. AIRWAY SECURED AND PATENT. NO SOB NOTED AT THIS TIME. WILL CONTINUE TO MONITOR PT FOR ANY CHANGES. VENT CIRCUIT CHANGED PER RT PROTOCOL
[2018-11-04 19:59] VITALS: BP 115/67
[2018-11-04] MEDS: ENOXAPARIN SODIUM 40 MG/0.4 ML DISP.SYRIN SQ SCH (21:59)
[2018-11-04] MEDS: ZINC SULFATE 220 MG CAPSULE GT SCH (21:59)
[2018-11-04] MEDS: POLYETHYLENE GLYCOL 3350 17 GM POWD.PACK GT SCH (22:00)
[2018-11-04] MEDS: ATORVASTATIN 10 MG TABLET GT SCH (22:00)
[2018-11-05] MEDS: HYDROCODONE/APAP 5/325MG 1 EACH TABLET GT PRN (01:58)
[2018-11-05] MEDS: IPRATROPIUM NEB FS 0.5 MG/2.5 ML AMPUL.NEB NEB SCH ×4 (01:59→19:03)
[2018-11-05] MEDS: SUCRALFATE 1 G/10 ML UDC GT SCH ×4 (05:50→21:12)
[2018-11-05 07:50] VITALS: BP 134/76
[2018-11-05] MEDS: ESCITALOPRAM OXALATE (10 MG) 10 MG TABLET GT SCH (08:49)
[2018-11-05] MEDS: ACIDOPHILUS/BULGARICUS 1 EACH TAB.CHEW GT SCH ×3 (08:49→17:24)
[2018-11-05] MEDS: BACLOFEN (10 MG) 10 MG TABLET GT SCH ×4 (08:50→21:12)
[2018-11-05] MEDS: CALCITRIOL 0.25 MCG CAPSULE PO SCH (08:50)
[2018-11-05] MEDS: PROSTAT (PYXIS) 30 ML UDC GT SCH ×3 (08:50→17:25)
[2018-11-05] MEDS: ASCORBIC ACID 500 MG TABLET GT SCH ×2 (08:50→17:25)
[2018-11-05] MEDS: FAMOTIDINE (20 MG) 20 MG TABLET GT SCH ×2 (08:50→21:12)
[2018-11-05] MEDS: CALCIUM CARBONATE 500 MG TAB.CHEW GT SCH ×3 (08:51→17:25)
[2018-11-05] MEDS: METHADONE HCL 10 MG TABLET GT SCH ×2 (08:53→17:28)
[2018-11-05] MEDS: GABAPENTIN 250 MG/5 ML GT SCH ×3 (09:00→17:24)
[2018-11-05] MEDS: HYDROGEN PEROXIDE 480 ML BOTTLE TP SCH ×2 (09:00→21:13)
[2018-11-05] MEDS: MULTIVIT W/MINERALS 1 TAB TABLET GT SCH (09:06)
[2018-11-05] MEDS: HYDROCODONE/APAP 5/325MG 1 EACH TABLET GT SCH ×2 (11:08→21:12)
[2018-11-05] MEDS: THERAHONEY GEL 1.5 OZ TUBE TP SCH ×4 (11:45→21:14)
[2018-11-05 21:02] VITALS: BP 129/80
[2018-11-05] MEDS: ZINC SULFATE 220 MG CAPSULE GT SCH (21:12)
[2018-11-05] MEDS: ENOXAPARIN SODIUM 40 MG/0.4 ML DISP.SYRIN SQ SCH (21:13)
[2018-11-05] MEDS: ATORVASTATIN 10 MG TABLET GT SCH (21:14)
[2018-11-05] MEDS: POLYETHYLENE GLYCOL 3350 17 GM POWD.PACK GT SCH (21:14)
[2018-11-06] MEDS: IPRATROPIUM NEB FS 0.5 MG/2.5 ML AMPUL.NEB NEB SCH ×4 (00:31→18:59)
[2018-11-06] MEDS: SUCRALFATE 1 G/10 ML UDC GT SCH ×4 (05:37→20:43)
--- NOTE | 2018-11-06 07:47 | NUR ---
RT Pt is awake and alert on cool aerosol tolerating well. HHN tx given with no adverse reactions. Pt refused suctioning at this time. No SOB or respiratory distress noted. Addendum: 11/06/18 at 0932 by ESPERANZA HOOPER RT Amended: Links added.
[2018-11-06 07:57] VITALS: BP 122/70
[2018-11-06] MEDS: ESCITALOPRAM OXALATE (10 MG) 10 MG TABLET GT SCH (08:32)
[2018-11-06] MEDS: ACIDOPHILUS/BULGARICUS 1 EACH TAB.CHEW GT SCH ×3 (08:32→17:35)
[2018-11-06] MEDS: BACLOFEN (10 MG) 10 MG TABLET GT SCH ×4 (08:32→20:43)
[2018-11-06] MEDS: GABAPENTIN 250 MG/5 ML GT SCH ×3 (08:32→17:35)
[2018-11-06] MEDS: MULTIVIT W/MINERALS 1 TAB TABLET GT SCH (08:33)
[2018-11-06] MEDS: ASCORBIC ACID 500 MG TABLET GT SCH ×2 (08:33→17:35)
[2018-11-06] MEDS: CALCIUM CARBONATE 500 MG TAB.CHEW GT SCH ×3 (08:33→17:35)
[2018-11-06] MEDS: FAMOTIDINE (20 MG) 20 MG TABLET GT SCH ×2 (08:33→20:43)
[2018-11-06] MEDS: CALCITRIOL 0.25 MCG CAPSULE PO SCH (08:33)
[2018-11-06] MEDS: METHADONE HCL 10 MG TABLET GT SCH ×2 (08:33→17:44)
[2018-11-06] MEDS: PROSTAT (PYXIS) 30 ML UDC GT SCH ×3 (08:33→17:35)
[2018-11-06] MEDS: HYDROGEN PEROXIDE 480 ML BOTTLE TP SCH ×2 (09:00→20:44)
[2018-11-06] MEDS: HYDROCODONE/APAP 5/325MG 1 EACH TABLET GT SCH ×2 (09:30→20:43)
--- NOTE | 2018-11-06 09:42 | NUR ---
Late Entry for 11/05/18: SW spoke to patient as he expressed discontent in regard to one of the CNAs, Mariangel to Dr. Seaman on 10/03/18. SW spoke to patient to better understand situation. Per patient, he is under a lot of pain as he has a sacral wound on the buttocks and when the pillow under the buttocks is changed is causes him even more pain. SW validated patient as he is, in fact, in a lot of pain and reminded patient that his pain medication has just been reviewed to help alleviate his intense pain. Patient expressed understanding. Patient had a verbal outburst when talking about said nurse. SW gave verbal praise to patient for informing his doctor about his discontentment. SW educated patient, that spitting and having verbal outbursts towards staff in unacceptable as they are providing care, and informed him that real change happens after he calmly verbalizes discomfort to staff. Patient expressed understanding and stated, I will try to do more talking instead of spitting. RAVI spoke to RECEIVING SUPERVISOR about the situation and she stated that the patient has Hx of spitting behavior when he doesnt want to be turned or the pillow under the buttocks to be changed. Per Mariangel, she changed the patients pillow accompanied by a FURNACE CONVERTER. Per Mariangel, the patient allegedly began to unsuccessful attempt to spit at her. SW reminded Mariangel to always wear mouth and eye shield as the patient is on isolation. SW encouraged Mariangel to inform charge nurse every time the patient attempts to spit and/or has verbal outburst. Mariangel expressed understanding and was agreeable to plan.
[2018-11-06] MEDS: THERAHONEY GEL 1.5 OZ TUBE TP SCH ×4 (10:00→20:44)
[2018-11-06] MEDS: ZINC SULFATE 220 MG CAPSULE GT SCH (20:44)
[2018-11-06] MEDS: ENOXAPARIN SODIUM 40 MG/0.4 ML DISP.SYRIN SQ SCH (21:35)
[2018-11-06] MEDS: POLYETHYLENE GLYCOL 3350 17 GM POWD.PACK GT SCH (21:36)
[2018-11-06] MEDS: ATORVASTATIN 10 MG TABLET GT SCH (21:36)
[2018-11-06 21:49] VITALS: BP 102/60
[2018-11-07] MEDS: IPRATROPIUM NEB FS 0.5 MG/2.5 ML AMPUL.NEB NEB SCH ×4 (00:52→19:46)
[2018-11-07] MEDS: HYDROCODONE/APAP 10/325MG 1 EA TABLET PO PRN (05:42)
[2018-11-07] MEDS: SUCRALFATE 1 G/10 ML UDC GT SCH ×4 (06:33→20:52)
[2018-11-07 07:52] VITALS: BP 109/73
[2018-11-07] MEDS: HYDROGEN PEROXIDE 480 ML BOTTLE TP SCH ×2 (08:11→21:56)
[2018-11-07] MEDS: ESCITALOPRAM OXALATE (10 MG) 10 MG TABLET GT SCH (08:35)
[2018-11-07] MEDS: ACIDOPHILUS/BULGARICUS 1 EACH TAB.CHEW GT SCH ×3 (08:35→16:49)
[2018-11-07] MEDS: BACLOFEN (10 MG) 10 MG TABLET GT SCH ×4 (08:35→20:52)
[2018-11-07] MEDS: GABAPENTIN 250 MG/5 ML GT SCH ×3 (08:35→16:49)
[2018-11-07] MEDS: METHADONE HCL 10 MG TABLET GT SCH ×2 (08:36→16:49)
[2018-11-07] MEDS: MULTIVIT W/MINERALS 1 TAB TABLET GT SCH (08:36)
[2018-11-07] MEDS: ASCORBIC ACID 500 MG TABLET GT SCH ×2 (08:36→16:49)
[2018-11-07] MEDS: CALCIUM CARBONATE 500 MG TAB.CHEW GT SCH ×3 (08:36→16:49)
[2018-11-07] MEDS: PROSTAT (PYXIS) 30 ML UDC GT SCH ×3 (08:36→16:49)
[2018-11-07] MEDS: FAMOTIDINE (20 MG) 20 MG TABLET GT SCH ×2 (08:36→20:53)
[2018-11-07] MEDS: CALCITRIOL 0.25 MCG CAPSULE PO SCH (08:36)
[2018-11-07] MEDS: HYDROCODONE/APAP 5/325MG 1 EACH TABLET GT SCH ×2 (09:30→21:21)
[2018-11-07] MEDS: THERAHONEY GEL 1.5 OZ TUBE TP SCH ×4 (10:00→22:00)
--- NOTE | 2018-11-07 13:03 | NUR ---
RT: PT RECEIVED TRACH'D ON CA WITH SETTINGS PER MD ORDER. SPARE TRACH AND AMBU BAG AT HEAD OF BED. TX GIVEN ORDERED. NO ADVERSE REACTIONS OBSERVED. SUCTIONED MODERATE AMOUNTS OF THICK, YELLOW SECRETIONS. TRACH CARE DONE. AIRWAY SECURED AND PATENT. NO SOB NOTED AT THIS TIME. WILL CONTINUE TO MONITOR PT FOR ANY CHANGE OF CONDITION.
[2018-11-07] MEDS: ENOXAPARIN SODIUM 40 MG/0.4 ML DISP.SYRIN SQ SCH (20:53)
[2018-11-07] MEDS: ZINC SULFATE 220 MG CAPSULE GT SCH (20:53)
[2018-11-07 21:09] VITALS: BP 112/69
[2018-11-07] MEDS: POLYETHYLENE GLYCOL 3350 17 GM POWD.PACK GT SCH (21:21)
[2018-11-07] MEDS: ATORVASTATIN 10 MG TABLET GT SCH (21:21)
--- NOTE | 2018-11-08 00:58 | NUR ---
PATIENT RECEIVED ON COOL AEROSOL. PLACED PATIENT ON MECHANICAL VENTILATION PER NOC ORDER. PT IS AWAKE AND ALERT. CUFF CHECKED VIA RESIDENTIAL LIVING ASSISTANT. AMBU BAG/BACK UP TRACH @ BEDSIDE. VENT PLUGGED INTO RED OUTLET. ALARMS ON AND AUDIBLE. TX GIVEN, NO ADVERSE REACTIONS NOTED. SX DONE, PATIENT STABLE. WILL MONITOR
[2018-11-08] MEDS: IPRATROPIUM NEB FS 0.5 MG/2.5 ML AMPUL.NEB NEB SCH ×4 (01:33→20:09)
[2018-11-08] MEDS: HYDROCODONE/APAP 5/325MG 1 EACH TABLET GT PRN (01:56)
[2018-11-08] MEDS: SUCRALFATE 1 G/10 ML UDC GT SCH ×4 (05:40→20:30)
[2018-11-08 07:50] VITALS: BP 130/74
[2018-11-08] MEDS: HYDROGEN PEROXIDE 480 ML BOTTLE TP SCH ×2 (09:00→21:00)
[2018-11-08] MEDS: BACLOFEN (10 MG) 10 MG TABLET GT SCH ×4 (09:22→21:42)
[2018-11-08] MEDS: ACIDOPHILUS/BULGARICUS 1 EACH TAB.CHEW GT SCH ×3 (09:22→17:05)
[2018-11-08] MEDS: GABAPENTIN 250 MG/5 ML GT SCH ×3 (09:22→17:05)
[2018-11-08] MEDS: ESCITALOPRAM OXALATE (10 MG) 10 MG TABLET GT SCH (09:22)
[2018-11-08] MEDS: METHADONE HCL 10 MG TABLET GT SCH ×2 (09:22→17:05)
[2018-11-08] MEDS: CALCITRIOL 0.25 MCG CAPSULE PO SCH (09:23)
[2018-11-08] MEDS: MULTIVIT W/MINERALS 1 TAB TABLET GT SCH (09:23)
[2018-11-08] MEDS: HYDROCODONE/APAP 5/325MG 1 EACH TABLET GT SCH ×2 (09:23→21:42)
[2018-11-08] MEDS: CALCIUM CARBONATE 500 MG TAB.CHEW GT SCH ×3 (09:23→17:06)
[2018-11-08] MEDS: FAMOTIDINE (20 MG) 20 MG TABLET GT SCH ×2 (09:23→21:42)
[2018-11-08] MEDS: ASCORBIC ACID 500 MG TABLET GT SCH ×2 (09:23→17:06)
[2018-11-08] MEDS: PROSTAT (PYXIS) 30 ML UDC GT SCH ×3 (09:23→17:05)
[2018-11-08] MEDS: THERAHONEY GEL 1.5 OZ TUBE TP SCH ×4 (10:00→21:57)
[2018-11-08] MEDS: NYSTATIN/TRIAMCIN 15 GM CREAM 15 GM TUBE TP SCH ×2 (10:00→21:57)
[2018-11-08 20:52] VITALS: BP 110/59
[2018-11-08] MEDS: ZINC SULFATE 220 MG CAPSULE GT SCH (21:42)
[2018-11-08] MEDS: POLYETHYLENE GLYCOL 3350 17 GM POWD.PACK GT SCH (21:43)
[2018-11-08] MEDS: ATORVASTATIN 10 MG TABLET GT SCH (21:43)
[2018-11-08] MEDS: ENOXAPARIN SODIUM 40 MG/0.4 ML DISP.SYRIN SQ SCH (21:43)
[2018-11-09] MEDS: IPRATROPIUM NEB FS 0.5 MG/2.5 ML AMPUL.NEB NEB SCH ×4 (02:37→20:36)
--- NOTE | 2018-11-09 05:18 | NUR ---
Pt rec'd trached on cool aerosol. [facility] per MD orders. Pt awake and alert. no resp distress or sob noted. trach patent and secured. alarms are set and audible. vent plugged into red outlet. ambu bag bedside. will continue to monitor. Addendum: 11/09/18 at 0519 by CAITLIN SOTO RT Amended: Links added.
[2018-11-09] MEDS: METHOCARBAMOL (750MG) 750 MG TABLET GT PRN (05:50)
[2018-11-09] MEDS: SUCRALFATE 1 G/10 ML UDC GT SCH ×4 (05:50→21:22)
--- NOTE | 2018-11-09 06:20 | NUR ---
pt placed on cool aerosol per md orders. Addendum: 11/09/18 at 0645 by CAITLIN SOTO RT Amended: Links added.
[2018-11-09 07:51] VITALS: BP 124/68
[2018-11-09] MEDS: HYDROGEN PEROXIDE 480 ML BOTTLE TP SCH ×2 (09:00→21:00)
[2018-11-09] MEDS: FAMOTIDINE (20 MG) 20 MG TABLET GT SCH ×2 (09:35→21:23)
[2018-11-09] MEDS: GABAPENTIN 250 MG/5 ML GT SCH ×3 (09:35→17:05)
[2018-11-09] MEDS: HYDROCODONE/APAP 5/325MG 1 EACH TABLET GT SCH ×2 (09:35→21:23)
[2018-11-09] MEDS: ESCITALOPRAM OXALATE (10 MG) 10 MG TABLET GT SCH (09:35)
[2018-11-09] MEDS: CALCITRIOL 0.25 MCG CAPSULE PO SCH (09:35)
[2018-11-09] MEDS: ACIDOPHILUS/BULGARICUS 1 EACH TAB.CHEW GT SCH ×3 (09:35→17:05)
[2018-11-09] MEDS: PROSTAT (PYXIS) 30 ML UDC GT SCH ×3 (09:35→17:05)
[2018-11-09] MEDS: BACLOFEN (10 MG) 10 MG TABLET GT SCH ×4 (09:35→21:22)
[2018-11-09] MEDS: CALCIUM CARBONATE 500 MG TAB.CHEW GT SCH ×3 (09:35→17:05)
[2018-11-09] MEDS: METHADONE HCL 10 MG TABLET GT SCH ×2 (09:35→17:05)
[2018-11-09] MEDS: MULTIVIT W/MINERALS 1 TAB TABLET GT SCH (09:35)
[2018-11-09] MEDS: ASCORBIC ACID 500 MG TABLET GT SCH ×2 (09:35→17:05)
[2018-11-09] MEDS: THERAHONEY GEL 1.5 OZ TUBE TP SCH ×4 (10:05→22:00)
[2018-11-09] MEDS: NYSTATIN/TRIAMCIN 15 GM CREAM 15 GM TUBE TP SCH ×2 (10:05→22:00)
--- NOTE | 2018-11-09 11:25 | NUR ---
Seen and examined by Dr. Seaman no new orders.
[2018-11-09] MEDS: MAGNESIUM HYDROXIDE 30 ML UDC GT PRN (18:51)
[2018-11-09 19:53] VITALS: BP 96/62
[2018-11-09] MEDS: ZINC SULFATE 220 MG CAPSULE GT SCH (21:23)
[2018-11-09] MEDS: ENOXAPARIN SODIUM 40 MG/0.4 ML DISP.SYRIN SQ SCH (21:23)
[2018-11-09] MEDS: ATORVASTATIN 10 MG TABLET GT SCH (21:24)
[2018-11-09] MEDS: POLYETHYLENE GLYCOL 3350 17 GM POWD.PACK GT SCH (21:24)
[2018-11-10] MEDS: IPRATROPIUM NEB FS 0.5 MG/2.5 ML AMPUL.NEB NEB SCH ×5 (01:56→20:04)
--- NOTE | 2018-11-10 03:11 | NUR ---
Pt rec'd trached on cool aerosol. [facility] per MD orders. Pt awake and alert. no resp distress or sob noted. trach patent and secured. alarms are set and audible. vent plugged into red outlet. ambu bag bedside. will continue to monitor Addendum: 11/10/18 at 0311 by CAITLIN SOTO RT Amended: Links added.
[2018-11-10] MEDS: SUCRALFATE 1 G/10 ML UDC GT SCH ×4 (05:31→21:29)
[2018-11-10 08:01] VITALS: BP 111/68
[2018-11-10] MEDS: HYDROGEN PEROXIDE 480 ML BOTTLE TP SCH ×2 (09:00→21:00)
[2018-11-10] MEDS: ACIDOPHILUS/BULGARICUS 1 EACH TAB.CHEW GT SCH ×3 (09:12→17:37)
[2018-11-10] MEDS: METHADONE HCL 10 MG TABLET GT SCH ×2 (09:12→17:37)
[2018-11-10] MEDS: HYDROCODONE/APAP 5/325MG 1 EACH TABLET GT SCH ×2 (09:12→21:30)
[2018-11-10] MEDS: ESCITALOPRAM OXALATE (10 MG) 10 MG TABLET GT SCH (09:12)
[2018-11-10] MEDS: GABAPENTIN 250 MG/5 ML GT SCH ×3 (09:12→17:37)
[2018-11-10] MEDS: BACLOFEN (10 MG) 10 MG TABLET GT SCH ×4 (09:12→21:29)
[2018-11-10] MEDS: CALCIUM CARBONATE 500 MG TAB.CHEW GT SCH ×3 (09:13→17:37)
[2018-11-10] MEDS: FAMOTIDINE (20 MG) 20 MG TABLET GT SCH ×2 (09:13→21:30)
[2018-11-10] MEDS: CALCITRIOL 0.25 MCG CAPSULE PO SCH (09:13)
[2018-11-10] MEDS: PROSTAT (PYXIS) 30 ML UDC GT SCH ×3 (09:13→17:37)
[2018-11-10] MEDS: MULTIVIT W/MINERALS 1 TAB TABLET GT SCH (09:13)
[2018-11-10] MEDS: ASCORBIC ACID 500 MG TABLET GT SCH ×2 (09:13→17:37)
[2018-11-10] MEDS: THERAHONEY GEL 1.5 OZ TUBE TP SCH ×4 (09:45→22:00)
[2018-11-10] MEDS: NYSTATIN/TRIAMCIN 15 GM CREAM 15 GM TUBE TP SCH ×2 (09:45→22:00)
[2018-11-10 19:49] VITALS: BP 104/65
[2018-11-10] MEDS: ZINC SULFATE 220 MG CAPSULE GT SCH (21:30)
[2018-11-10] MEDS: ENOXAPARIN SODIUM 40 MG/0.4 ML DISP.SYRIN SQ SCH (21:30)
[2018-11-10] MEDS: POLYETHYLENE GLYCOL 3350 17 GM POWD.PACK GT SCH (21:30)
[2018-11-10] MEDS: ATORVASTATIN 10 MG TABLET GT SCH (21:30)
[2018-11-11] MEDS: IPRATROPIUM NEB FS 0.5 MG/2.5 ML AMPUL.NEB NEB SCH ×4 (01:29→19:30)
[2018-11-11] MEDS: SUCRALFATE 1 G/10 ML UDC GT SCH ×4 (06:49→20:30)
[2018-11-11 08:00] VITALS: BP 112/56
[2018-11-11] MEDS: PROSTAT (PYXIS) 30 ML UDC GT SCH ×3 (09:00→16:45)
[2018-11-11] MEDS: ASCORBIC ACID 500 MG TABLET GT SCH ×2 (09:00→16:45)
[2018-11-11] MEDS: ESCITALOPRAM OXALATE (10 MG) 10 MG TABLET GT SCH (09:00)
[2018-11-11] MEDS: ACIDOPHILUS/BULGARICUS 1 EACH TAB.CHEW GT SCH ×3 (09:00→16:44)
[2018-11-11] MEDS: BACLOFEN (10 MG) 10 MG TABLET GT SCH ×4 (09:00→21:30)
[2018-11-11] MEDS: CALCIUM CARBONATE 500 MG TAB.CHEW GT SCH ×3 (09:00→16:45)
[2018-11-11] MEDS: THERAHONEY GEL 1.5 OZ TUBE TP SCH ×4 (09:00→21:32)
[2018-11-11] MEDS: METHADONE HCL 10 MG TABLET GT SCH ×2 (09:00→16:45)
[2018-11-11] MEDS: FAMOTIDINE (20 MG) 20 MG TABLET GT SCH ×2 (09:00→21:31)
[2018-11-11] MEDS: CALCITRIOL 0.25 MCG CAPSULE PO SCH (09:00)
[2018-11-11] MEDS: MULTIVIT W/MINERALS 1 TAB TABLET GT SCH (09:00)
[2018-11-11] MEDS: NYSTATIN/TRIAMCIN 15 GM CREAM 15 GM TUBE TP SCH ×2 (09:00→21:31)
[2018-11-11] MEDS: GABAPENTIN 250 MG/5 ML GT SCH ×3 (09:00→16:44)
[2018-11-11] MEDS: HYDROGEN PEROXIDE 480 ML BOTTLE TP SCH ×2 (09:46→21:31)
[2018-11-11] MEDS: HYDROCODONE/APAP 5/325MG 1 EACH TABLET GT SCH ×2 (10:30→21:31)
--- NOTE | 2018-11-11 11:18 | NUR ---
Pt refused trach care at this time Addendum: 11/11/18 at 1119 by YESICA CHEW RT Amended: Links added.
[2018-11-11 19:51] VITALS: BP 108/60
[2018-11-11] MEDS: ENOXAPARIN SODIUM 40 MG/0.4 ML DISP.SYRIN SQ SCH (21:31)
[2018-11-11] MEDS: ZINC SULFATE 220 MG CAPSULE GT SCH (21:31)
[2018-11-11] MEDS: POLYETHYLENE GLYCOL 3350 17 GM POWD.PACK GT SCH (21:32)
[2018-11-11] MEDS: ATORVASTATIN 10 MG TABLET GT SCH (21:32)
--- NOTE | 2018-11-12 00:05 | NUR ---
RT NOTES TRACH TUBE IN PLACE, PATENT, AND SECURED WITH TRACH TIE. ALARMS ON AND AUDIBLE. VENT PLUGGED IN TO RED OUTLET. AMBU BAG AND BACK UP TRACH BY THE BEDSIDE. PLACED ON VENT, CUFF INFLATED PER MD ORDERS @ MIDNIGHT. TOLERATE WELL. NOTIFIED NURSE. Addendum: 11/12/18 at 0007 by JERONIMO YOUNG RT Amended: Links added.
[2018-11-12] MEDS: IPRATROPIUM NEB FS 0.5 MG/2.5 ML AMPUL.NEB NEB SCH ×4 (00:36→19:12)
[2018-11-12] MEDS: HYDROCODONE/APAP 10/325MG 1 EA TABLET PO PRN (00:39)
[2018-11-12] MEDS: SUCRALFATE 1 G/10 ML UDC GT SCH ×4 (05:36→21:08)
[2018-11-12] MEDS: HYDROGEN PEROXIDE 480 ML BOTTLE TP SCH ×2 (08:43→21:09)
[2018-11-12] MEDS: THERAHONEY GEL 1.5 OZ TUBE TP SCH ×4 (09:00→21:09)
[2018-11-12] MEDS: ACIDOPHILUS/BULGARICUS 1 EACH TAB.CHEW GT SCH ×3 (09:19→16:42)
[2018-11-12] MEDS: BACLOFEN (10 MG) 10 MG TABLET GT SCH ×4 (09:19→21:08)
[2018-11-12] MEDS: GABAPENTIN 250 MG/5 ML GT SCH ×3 (09:19→16:42)
[2018-11-12] MEDS: ESCITALOPRAM OXALATE (10 MG) 10 MG TABLET GT SCH (09:19)
[2018-11-12] MEDS: CALCIUM CARBONATE 500 MG TAB.CHEW GT SCH ×3 (09:20→16:43)
[2018-11-12] MEDS: ASCORBIC ACID 500 MG TABLET GT SCH ×2 (09:20→16:43)
[2018-11-12] MEDS: CALCITRIOL 0.25 MCG CAPSULE PO SCH (09:20)
[2018-11-12] MEDS: METHADONE HCL 10 MG TABLET GT SCH ×2 (09:20→16:43)
[2018-11-12] MEDS: PROSTAT (PYXIS) 30 ML UDC GT SCH ×3 (09:20→16:43)
[2018-11-12] MEDS: FAMOTIDINE (20 MG) 20 MG TABLET GT SCH ×2 (09:20→21:08)
[2018-11-12] MEDS: MULTIVIT W/MINERALS 1 TAB TABLET GT SCH (09:20)
[2018-11-12 10:02] VITALS: BP 129/67
[2018-11-12] MEDS: HYDROCODONE/APAP 5/325MG 1 EACH TABLET GT SCH ×2 (10:30→21:08)
[2018-11-12] MEDS: NYSTATIN/TRIAMCIN 15 GM CREAM 15 GM TUBE TP SCH ×2 (11:00→21:09)
[2018-11-12 19:48] VITALS: BP 109/64
[2018-11-12] MEDS: ZINC SULFATE 220 MG CAPSULE GT SCH (21:08)
[2018-11-12] MEDS: ENOXAPARIN SODIUM 40 MG/0.4 ML DISP.SYRIN SQ SCH (21:09)
[2018-11-12] MEDS: POLYETHYLENE GLYCOL 3350 17 GM POWD.PACK GT SCH (21:09)
[2018-11-12] MEDS: ATORVASTATIN 10 MG TABLET GT SCH (21:09)
[2018-11-13] MEDS: IPRATROPIUM NEB FS 0.5 MG/2.5 ML AMPUL.NEB NEB SCH ×4 (01:40→19:14)
[2018-11-13] MEDS: SUCRALFATE 1 G/10 ML UDC GT SCH ×4 (06:00→21:23)
[2018-11-13 07:57] VITALS: BP 129/69
[2018-11-13] MEDS: HYDROGEN PEROXIDE 480 ML BOTTLE TP SCH ×2 (07:57→21:24)
[2018-11-13] MEDS: BACLOFEN (10 MG) 10 MG TABLET GT SCH ×4 (08:43→21:23)
[2018-11-13] MEDS: ESCITALOPRAM OXALATE (10 MG) 10 MG TABLET GT SCH (08:43)
[2018-11-13] MEDS: ACIDOPHILUS/BULGARICUS 1 EACH TAB.CHEW GT SCH ×3 (08:43→17:17)
[2018-11-13] MEDS: GABAPENTIN 250 MG/5 ML GT SCH ×3 (08:43→17:17)
[2018-11-13] MEDS: MULTIVIT W/MINERALS 1 TAB TABLET GT SCH (08:44)
[2018-11-13] MEDS: ASCORBIC ACID 500 MG TABLET GT SCH ×2 (08:44→17:18)
[2018-11-13] MEDS: CALCIUM CARBONATE 500 MG TAB.CHEW GT SCH ×3 (08:44→17:18)
[2018-11-13] MEDS: CALCITRIOL 0.25 MCG CAPSULE PO SCH (08:44)
[2018-11-13] MEDS: FAMOTIDINE (20 MG) 20 MG TABLET GT SCH ×2 (08:44→21:24)
[2018-11-13] MEDS: PROSTAT (PYXIS) 30 ML UDC GT SCH ×3 (08:44→17:18)
[2018-11-13] MEDS: METHADONE HCL 10 MG TABLET GT SCH ×2 (08:44→17:18)
[2018-11-13] MEDS: HYDROCODONE/APAP 5/325MG 1 EACH TABLET GT SCH ×2 (08:44→21:24)
[2018-11-13] MEDS: NYSTATIN/TRIAMCIN 15 GM CREAM 15 GM TUBE TP SCH ×2 (09:00→21:25)
[2018-11-13] MEDS: THERAHONEY GEL 1.5 OZ TUBE TP SCH ×4 (09:00→21:25)
--- NOTE | 2018-11-13 14:27 | NUR ---
SW called and left a voicemail for family/sister, Vilma Marley [phone] to invite them to IDT meeting taking place this Monday, November 16, 2018 from 12:30pm-1:30pm in the SA activities room or participate via phone conference.
[2018-11-13 20:56] VITALS: BP 119/67
[2018-11-13] MEDS: ZINC SULFATE 220 MG CAPSULE GT SCH (21:24)
[2018-11-13] MEDS: ENOXAPARIN SODIUM 40 MG/0.4 ML DISP.SYRIN SQ SCH (21:24)
[2018-11-13] MEDS: ATORVASTATIN 10 MG TABLET GT SCH (21:25)
[2018-11-13] MEDS: POLYETHYLENE GLYCOL 3350 17 GM POWD.PACK GT SCH (21:25)
[2018-11-14] MEDS: IPRATROPIUM NEB FS 0.5 MG/2.5 ML AMPUL.NEB NEB SCH ×4 (01:13→19:35)
[2018-11-14] MEDS: SUCRALFATE 1 G/10 ML UDC GT SCH ×4 (05:51→20:30)
[2018-11-14] MEDS: ESCITALOPRAM OXALATE (10 MG) 10 MG TABLET GT SCH (08:00)
[2018-11-14] MEDS: GABAPENTIN 250 MG/5 ML GT SCH ×3 (08:00→17:48)
[2018-11-14] MEDS: ACIDOPHILUS/BULGARICUS 1 EACH TAB.CHEW GT SCH ×3 (08:00→17:48)
[2018-11-14] MEDS: BACLOFEN (10 MG) 10 MG TABLET GT SCH ×4 (08:00→21:38)
[2018-11-14] MEDS: METHADONE HCL 10 MG TABLET GT SCH ×2 (08:01→17:48)
[2018-11-14] MEDS: MULTIVIT W/MINERALS 1 TAB TABLET GT SCH (08:05)
[2018-11-14] MEDS: CALCIUM CARBONATE 500 MG TAB.CHEW GT SCH ×3 (08:05→17:48)
[2018-11-14] MEDS: CALCITRIOL 0.25 MCG CAPSULE PO SCH (08:05)
[2018-11-14] MEDS: PROSTAT (PYXIS) 30 ML UDC GT SCH ×3 (08:05→17:48)
[2018-11-14] MEDS: FAMOTIDINE (20 MG) 20 MG TABLET GT SCH ×2 (08:05→21:39)
[2018-11-14] MEDS: ASCORBIC ACID 500 MG TABLET GT SCH ×2 (08:05→17:48)
[2018-11-14] MEDS: HYDROGEN PEROXIDE 480 ML BOTTLE TP SCH ×2 (08:09→21:00)
[2018-11-14 08:15] VITALS: BP 132/71
--- NOTE | 2018-11-14 09:00 | NUR ---
RT RECEIVED PT TRACH'D ON CA WITH SETTINGS PER MD ORDER. SPARE TRACH AND AMBU BAG AT BEDSIDE. TRACH CARE DONE. TRACH SECURED AND AIRWAY PATENT. BREATHING TX GIVEN ORDERED. NO ADVERSE REACTIONS OBSERVED. SUCTIONS MOD AMOUNTS OF THICK, YELLOW SECRETIONS. NO SOB NOTED AT THIS TIME. WILL CONTINUE TO MONITOR FOR ANY CHANGES. Addendum: 11/14/18 at 1716 by JIMBO LEMONS RT Amended: Links added.
[2018-11-14] MEDS: HYDROCODONE/APAP 5/325MG 1 EACH TABLET GT SCH ×2 (11:30→21:39)
[2018-11-14] MEDS: NYSTATIN/TRIAMCIN 15 GM CREAM 15 GM TUBE TP SCH ×2 (12:30→21:50)
[2018-11-14] MEDS: THERAHONEY GEL 1.5 OZ TUBE TP SCH ×4 (12:30→21:50)
--- NOTE | 2018-11-14 14:53 | NUR ---
The resident was seen by for annual dental exam and cleaning. The Dental notes state: "Cleaning/exm, Film on teeth, Pavel/plaque, bleeding, missing teeth: 1,2,10,15,17,18,19, Extreme Wear 20-29. RAVI notified patient's responsible green party/ sister Vilma [phone]. Per Vilma, she will not be able to attend the IDT meeting for 11/16/18 as she sis currently int [facility]. Noted.
--- NOTE | 2018-11-14 19:51 | NUR ---
RT NOTES PT RECEIVED TRACHED ON COOL AEROSOL ON FIO2 28% VIA TRACH MASK. NO SIGNS OF RESP DISTRESS/SOB NOTED. PT SUCTIONED. HHN TX GIVEN. AMBUBAG AND SPARE TRACH AT HEAD OF BED. WILL CONT TO MONITOR. Addendum: 11/15/18 at 0056 by DAMON PAZ RT Amended: Links added.
[2018-11-14 19:52] VITALS: BP 108/65
[2018-11-14] MEDS: ZINC SULFATE 220 MG CAPSULE GT SCH (21:39)
[2018-11-14] MEDS: ATORVASTATIN 10 MG TABLET GT SCH (21:39)
[2018-11-14] MEDS: POLYETHYLENE GLYCOL 3350 17 GM POWD.PACK GT SCH (21:39)
[2018-11-14] MEDS: ENOXAPARIN SODIUM 40 MG/0.4 ML DISP.SYRIN SQ SCH (21:39)
[2018-11-15] MEDS: IPRATROPIUM NEB FS 0.5 MG/2.5 ML AMPUL.NEB NEB SCH ×4 (02:15→20:24)
[2018-11-15] MEDS: SUCRALFATE 1 G/10 ML UDC GT SCH ×4 (06:02→21:12)
[2018-11-15] MEDS: METHOCARBAMOL (750MG) 750 MG TABLET GT PRN (06:11)
[2018-11-15 07:58] VITALS: BP 144/77
[2018-11-15] MEDS: GABAPENTIN 250 MG/5 ML GT SCH ×3 (08:53→16:14)
[2018-11-15] MEDS: ACIDOPHILUS/BULGARICUS 1 EACH TAB.CHEW GT SCH ×3 (08:53→16:14)
[2018-11-15] MEDS: BACLOFEN (10 MG) 10 MG TABLET GT SCH ×4 (08:53→20:30)
[2018-11-15] MEDS: ESCITALOPRAM OXALATE (10 MG) 10 MG TABLET GT SCH (08:53)
[2018-11-15] MEDS: MULTIVIT W/MINERALS 1 TAB TABLET GT SCH (08:54)
[2018-11-15] MEDS: PROSTAT (PYXIS) 30 ML UDC GT SCH ×3 (08:54→16:15)
[2018-11-15] MEDS: HYDROCODONE/APAP 5/325MG 1 EACH TABLET GT SCH ×2 (08:54→20:30)
[2018-11-15] MEDS: CALCIUM CARBONATE 500 MG TAB.CHEW GT SCH ×3 (08:54→16:15)
[2018-11-15] MEDS: FAMOTIDINE (20 MG) 20 MG TABLET GT SCH ×2 (08:54→20:30)
[2018-11-15] MEDS: CALCITRIOL 0.25 MCG CAPSULE PO SCH (08:54)
[2018-11-15] MEDS: ASCORBIC ACID 500 MG TABLET GT SCH ×2 (08:54→16:15)
[2018-11-15] MEDS: METHADONE HCL 10 MG TABLET GT SCH ×2 (08:54→16:14)
[2018-11-15] MEDS: NYSTATIN/TRIAMCIN 15 GM CREAM 15 GM TUBE TP SCH ×2 (09:00→20:31)
[2018-11-15] MEDS: THERAHONEY GEL 1.5 OZ TUBE TP SCH ×5 (09:00→20:31)
[2018-11-15] MEDS: HYDROGEN PEROXIDE 480 ML BOTTLE TP SCH ×2 (09:28→20:31)
[2018-11-15] MEDS: MAGNESIUM HYDROXIDE 30 ML UDC GT PRN (16:15)
[2018-11-15] MEDS: ZINC SULFATE 220 MG CAPSULE GT SCH (20:30)
[2018-11-15] MEDS: ENOXAPARIN SODIUM 40 MG/0.4 ML DISP.SYRIN SQ SCH (20:30)
[2018-11-15 20:56] VITALS: BP 119/63
[2018-11-15] MEDS: ATORVASTATIN 10 MG TABLET GT SCH (21:12)
[2018-11-15] MEDS: POLYETHYLENE GLYCOL 3350 17 GM POWD.PACK GT SCH (21:12)
--- NOTE | 2018-11-15 23:51 | NUR ---
Pt rec'd trached on Cool Aerosol 28% Fio2. Pt placed on mech vent on AC mode per MD orders. No resp distress or sob noted. Trach is patent and secured. Sx'd for mod amt of thick pale yellow secretions. Alarms are set and audible. Vent plugged into red outlet. Ambu bag bedside. Will continue to monitor. Addendum: 11/15/18 at 2352 by CAITLIN SOTO RT Amended: Links added.
[2018-11-16] MEDS: IPRATROPIUM NEB FS 0.5 MG/2.5 ML AMPUL.NEB NEB SCH ×4 (01:43→19:39)
[2018-11-16] MEDS: SUCRALFATE 1 G/10 ML UDC GT SCH ×4 (05:32→20:49)
[2018-11-16 08:02] VITALS: BP 126/72
[2018-11-16] MEDS: GABAPENTIN 250 MG/5 ML GT SCH ×3 (08:37→17:32)
[2018-11-16] MEDS: ESCITALOPRAM OXALATE (10 MG) 10 MG TABLET GT SCH (08:38)
[2018-11-16] MEDS: MULTIVIT W/MINERALS 1 TAB TABLET GT SCH (08:38)
[2018-11-16] MEDS: FAMOTIDINE (20 MG) 20 MG TABLET GT SCH ×2 (08:38→20:50)
[2018-11-16] MEDS: PROSTAT (PYXIS) 30 ML UDC GT SCH ×3 (08:38→17:32)
[2018-11-16] MEDS: BACLOFEN (10 MG) 10 MG TABLET GT SCH ×4 (08:38→20:49)
[2018-11-16] MEDS: METHADONE HCL 10 MG TABLET GT SCH ×2 (08:38→17:32)
[2018-11-16] MEDS: ACIDOPHILUS/BULGARICUS 1 EACH TAB.CHEW GT SCH ×3 (08:38→17:32)
[2018-11-16] MEDS: ASCORBIC ACID 500 MG TABLET GT SCH ×2 (08:39→17:32)
[2018-11-16] MEDS: CALCIUM CARBONATE 500 MG TAB.CHEW GT SCH ×3 (08:39→17:32)
[2018-11-16] MEDS: CALCITRIOL 0.25 MCG CAPSULE PO SCH (08:39)
[2018-11-16] MEDS: HYDROCODONE/APAP 5/325MG 1 EACH TABLET GT SCH ×2 (09:00→20:50)
[2018-11-16] MEDS: HYDROGEN PEROXIDE 480 ML BOTTLE TP SCH ×2 (09:00→20:50)
[2018-11-16] MEDS: NYSTATIN/TRIAMCIN 15 GM CREAM 15 GM TUBE TP SCH ×2 (09:30→20:50)
[2018-11-16] MEDS: THERAHONEY GEL 1.5 OZ TUBE TP SCH ×6 (09:30→20:51)
--- NOTE | 2018-11-16 10:54 | NUR ---
Patient refused trach care, trach care supplies left at bedside, will try again later. Addendum: 11/16/18 at 1055 by YESICA CHEW RT Amended: Links added.
--- NOTE | 2018-11-16 14:46 | NUR ---
INTERDISCIPLINARY PLAN OF CARE CONFERENCE was held today Resident's Sister, Vilma Marley unable to attend or participate via phone conference. Dr. Ugarte and the interdisciplinary team discussed the current plan of care in detail. Current orders as well as treatments and medications were reviewed. Charge Nurse discussed Methadone increase from 10 to 15 mg BID for pain management. Per charge nurse, the patient remains stable. See other discipline's IDT notes for further details.
[2018-11-16 20:44] VITALS: BP 115/58
[2018-11-16] MEDS: ENOXAPARIN SODIUM 40 MG/0.4 ML DISP.SYRIN SQ SCH (20:50)
[2018-11-16] MEDS: ZINC SULFATE 220 MG CAPSULE GT SCH (20:50)
[2018-11-16] MEDS: ATORVASTATIN 10 MG TABLET GT SCH (21:14)
[2018-11-16] MEDS: POLYETHYLENE GLYCOL 3350 17 GM POWD.PACK GT SCH (21:14)
[2018-11-17] MEDS: IPRATROPIUM NEB FS 0.5 MG/2.5 ML AMPUL.NEB NEB SCH ×4 (00:56→19:21)
[2018-11-17] MEDS: METHOCARBAMOL (750MG) 750 MG TABLET GT PRN (05:21)
[2018-11-17] MEDS: MAGNESIUM HYDROXIDE 30 ML UDC GT PRN (05:21)
[2018-11-17] MEDS: SUCRALFATE 1 G/10 ML UDC GT SCH ×4 (05:30→20:27)
[2018-11-17 07:39] VITALS: BP 114/61
[2018-11-17] MEDS: ACIDOPHILUS/BULGARICUS 1 EACH TAB.CHEW GT SCH ×3 (08:27→16:39)
[2018-11-17] MEDS: ESCITALOPRAM OXALATE (10 MG) 10 MG TABLET GT SCH (08:27)
[2018-11-17] MEDS: GABAPENTIN 250 MG/5 ML GT SCH ×3 (08:27→16:39)
[2018-11-17] MEDS: BACLOFEN (10 MG) 10 MG TABLET GT SCH ×4 (08:27→20:27)
[2018-11-17] MEDS: PROSTAT (PYXIS) 30 ML UDC GT SCH ×3 (08:28→16:40)
[2018-11-17] MEDS: FAMOTIDINE (20 MG) 20 MG TABLET GT SCH ×2 (08:28→20:27)
[2018-11-17] MEDS: CALCITRIOL 0.25 MCG CAPSULE PO SCH (08:28)
[2018-11-17] MEDS: METHADONE HCL 10 MG TABLET GT SCH ×2 (08:28→16:40)
[2018-11-17] MEDS: CALCIUM CARBONATE 500 MG TAB.CHEW GT SCH ×3 (08:28→16:40)
[2018-11-17] MEDS: MULTIVIT W/MINERALS 1 TAB TABLET GT SCH (08:28)
[2018-11-17] MEDS: ASCORBIC ACID 500 MG TABLET GT SCH ×2 (08:28→16:40)
[2018-11-17] MEDS: HYDROGEN PEROXIDE 480 ML BOTTLE TP SCH ×2 (09:00→20:28)
[2018-11-17] MEDS: HYDROCODONE/APAP 5/325MG 1 EACH TABLET GT SCH ×2 (09:00→20:27)
[2018-11-17] MEDS: NYSTATIN/TRIAMCIN 15 GM CREAM 15 GM TUBE TP SCH ×2 (09:30→20:28)
[2018-11-17] MEDS: THERAHONEY GEL 1.5 OZ TUBE TP SCH ×6 (09:30→20:28)
[2018-11-17 19:45] VITALS: BP 106/61
[2018-11-17] MEDS: ZINC SULFATE 220 MG CAPSULE GT SCH (20:27)
[2018-11-17] MEDS: ENOXAPARIN SODIUM 40 MG/0.4 ML DISP.SYRIN SQ SCH (20:28)
[2018-11-17] MEDS: ATORVASTATIN 10 MG TABLET GT SCH (21:01)
[2018-11-17] MEDS: POLYETHYLENE GLYCOL 3350 17 GM POWD.PACK GT SCH (21:01)
[2018-11-18] MEDS: IPRATROPIUM NEB FS 0.5 MG/2.5 ML AMPUL.NEB NEB SCH ×4 (00:44→19:35)
[2018-11-18] MEDS: METHOCARBAMOL (750MG) 750 MG TABLET GT PRN (05:36)
[2018-11-18] MEDS: SUCRALFATE 1 G/10 ML UDC GT SCH ×4 (05:36→21:14)
[2018-11-18 07:48] VITALS: BP 113/69
[2018-11-18] MEDS: HYDROGEN PEROXIDE 480 ML BOTTLE TP SCH ×2 (09:00→21:08)
[2018-11-18] MEDS: THERAHONEY GEL 1.5 OZ TUBE TP SCH ×6 (09:00→21:16)
[2018-11-18] MEDS: NYSTATIN/TRIAMCIN 15 GM CREAM 15 GM TUBE TP SCH ×2 (09:00→21:15)
[2018-11-18] MEDS: MULTIVIT W/MINERALS 1 TAB TABLET GT SCH (09:00)
[2018-11-18] MEDS: METHADONE HCL 10 MG TABLET GT SCH ×2 (09:00→16:54)
[2018-11-18] MEDS: GABAPENTIN 250 MG/5 ML GT SCH ×3 (09:00→16:51)
[2018-11-18] MEDS: CALCITRIOL 0.25 MCG CAPSULE PO SCH (09:00)
[2018-11-18] MEDS: BACLOFEN (10 MG) 10 MG TABLET GT SCH ×4 (09:57→21:14)
[2018-11-18] MEDS: ESCITALOPRAM OXALATE (10 MG) 10 MG TABLET GT SCH (09:57)
[2018-11-18] MEDS: FAMOTIDINE (20 MG) 20 MG TABLET GT SCH ×2 (09:57→21:14)
[2018-11-18] MEDS: ACIDOPHILUS/BULGARICUS 1 EACH TAB.CHEW GT SCH ×3 (09:57→16:51)
[2018-11-18] MEDS: PROSTAT (PYXIS) 30 ML UDC GT SCH ×3 (09:58→16:54)
[2018-11-18] MEDS: CALCIUM CARBONATE 500 MG TAB.CHEW GT SCH ×3 (09:58→16:54)
[2018-11-18] MEDS: ASCORBIC ACID 500 MG TABLET GT SCH ×2 (09:58→16:54)
[2018-11-18] MEDS: HYDROCODONE/APAP 5/325MG 1 EACH TABLET GT SCH ×2 (09:59→21:14)
[2018-11-18 19:46] VITALS: BP 107/68
[2018-11-18] MEDS: ZINC SULFATE 220 MG CAPSULE GT SCH (21:14)
[2018-11-18] MEDS: ENOXAPARIN SODIUM 40 MG/0.4 ML DISP.SYRIN SQ SCH (21:15)
[2018-11-18] MEDS: ATORVASTATIN 10 MG TABLET GT SCH (21:16)
[2018-11-18] MEDS: POLYETHYLENE GLYCOL 3350 17 GM POWD.PACK GT SCH (21:16)
[2018-11-19] MEDS: IPRATROPIUM NEB FS 0.5 MG/2.5 ML AMPUL.NEB NEB SCH ×4 (01:28→19:59)
--- NOTE | 2018-11-19 04:03 | NUR ---
RT PATIENT WAS RECEIVED ON COOL AEROSOL AND PLACED ON VENT ON NOTED VENT SETTINGS DURING MIDNIGHT PER MD ORDER.PATIENT STABLE THROUGHOUT THE SHIFT.HHN TREATMENT WAS GIVEN, NO ADVERSE REACTION NOTED. AIRWAY PATENT AND SECURED. WILL CONTINUE TO MONITOR. Addendum: 11/19/18 at 0403 by ROM ARAIZA RT Amended: Links added.
[2018-11-19] MEDS: SUCRALFATE 1 G/10 ML UDC GT SCH ×4 (05:29→21:18)
[2018-11-19 08:11] VITALS: BP 131/75
[2018-11-19] MEDS: METHADONE HCL 10 MG TABLET GT SCH ×2 (09:00→17:28)
[2018-11-19] MEDS: MULTIVIT W/MINERALS 1 TAB TABLET GT SCH (09:00)
[2018-11-19] MEDS: CALCIUM CARBONATE 500 MG TAB.CHEW GT SCH ×3 (09:00→17:29)
[2018-11-19] MEDS: CALCITRIOL 0.25 MCG CAPSULE PO SCH (09:00)
[2018-11-19] MEDS: NYSTATIN/TRIAMCIN 15 GM CREAM 15 GM TUBE TP SCH ×2 (09:00→21:19)
[2018-11-19] MEDS: GABAPENTIN 250 MG/5 ML GT SCH ×3 (09:00→17:28)
[2018-11-19] MEDS: ASCORBIC ACID 500 MG TABLET GT SCH ×2 (09:00→17:29)
[2018-11-19] MEDS: THERAHONEY GEL 1.5 OZ TUBE TP SCH ×6 (09:00→21:19)
[2018-11-19] MEDS: HYDROGEN PEROXIDE 480 ML BOTTLE TP SCH ×2 (09:00→21:19)
[2018-11-19] MEDS: ACIDOPHILUS/BULGARICUS 1 EACH TAB.CHEW GT SCH ×3 (09:00→17:28)
[2018-11-19] MEDS: PROSTAT (PYXIS) 30 ML UDC GT SCH ×3 (09:00→17:28)
[2018-11-19] MEDS: ESCITALOPRAM OXALATE (10 MG) 10 MG TABLET GT SCH (09:00)
[2018-11-19] MEDS: FAMOTIDINE (20 MG) 20 MG TABLET GT SCH ×2 (09:00→21:18)
[2018-11-19] MEDS: BACLOFEN (10 MG) 10 MG TABLET GT SCH ×4 (09:00→21:18)
[2018-11-19] MEDS: HYDROCODONE/APAP 5/325MG 1 EACH TABLET GT SCH ×2 (09:30→21:18)
[2018-11-19 19:49] VITALS: BP 98/60
[2018-11-19] MEDS: ZINC SULFATE 220 MG CAPSULE GT SCH (21:18)
[2018-11-19] MEDS: POLYETHYLENE GLYCOL 3350 17 GM POWD.PACK GT SCH (21:19)
[2018-11-19] MEDS: ENOXAPARIN SODIUM 40 MG/0.4 ML DISP.SYRIN SQ SCH (21:19)
[2018-11-19] MEDS: ATORVASTATIN 10 MG TABLET GT SCH (21:19)
[2018-11-20] MEDS: HYDROCODONE/APAP 10/325MG 1 EA TABLET PO PRN (02:03)
[2018-11-20] MEDS: IPRATROPIUM NEB FS 0.5 MG/2.5 ML AMPUL.NEB NEB SCH ×4 (02:11→19:13)
--- NOTE | 2018-11-20 04:56 | NUR ---
pt rec'd trached cool aerosol 28[facility] FIO2. [facility] @ midnight per md orders. no resp distress or sob noted. trach is patent and secured. sx'd for small amt of pale yellow secretions. alarms are set and audible. vent plugged into red outlet. ambu bag bedside. will continue to monitor. Addendum: 11/20/18 at 0457 by CAITLIN SOTO RT Amended: Links added.
[2018-11-20] MEDS: SUCRALFATE 1 G/10 ML UDC GT SCH ×4 (05:43→20:43)
[2018-11-20 07:49] VITALS: BP 130/76
--- NOTE | 2018-11-20 08:35 | NUR ---
RAVI called and spoke with pt.s sister, Vilma Marley regarding family support group taking place 11/21/18 from 11am-12pm. Per Vilma, she will not be able to make it.
[2018-11-20] MEDS: GABAPENTIN 250 MG/5 ML GT SCH ×3 (09:00→17:58)
[2018-11-20] MEDS: ACIDOPHILUS/BULGARICUS 1 EACH TAB.CHEW GT SCH ×3 (09:00→17:58)
[2018-11-20] MEDS: BACLOFEN (10 MG) 10 MG TABLET GT SCH ×4 (09:01→20:43)
[2018-11-20] MEDS: CALCIUM CARBONATE 500 MG TAB.CHEW GT SCH ×3 (09:01→17:58)
[2018-11-20] MEDS: CALCITRIOL 0.25 MCG CAPSULE PO SCH (09:01)
[2018-11-20] MEDS: MULTIVIT W/MINERALS 1 TAB TABLET GT SCH (09:01)
[2018-11-20] MEDS: ASCORBIC ACID 500 MG TABLET GT SCH ×2 (09:01→17:58)
[2018-11-20] MEDS: FAMOTIDINE (20 MG) 20 MG TABLET GT SCH ×2 (09:01→20:45)
[2018-11-20] MEDS: METHADONE HCL 10 MG TABLET GT SCH ×2 (09:01→17:58)
[2018-11-20] MEDS: PROSTAT (PYXIS) 30 ML UDC GT SCH ×3 (09:01→17:58)
[2018-11-20] MEDS: ESCITALOPRAM OXALATE (10 MG) 10 MG TABLET GT SCH (09:01)
[2018-11-20] MEDS: HYDROGEN PEROXIDE 480 ML BOTTLE TP SCH ×2 (09:23→21:00)
[2018-11-20] MEDS: HYDROCODONE/APAP 5/325MG 1 EACH TABLET GT SCH ×2 (10:45→20:45)
[2018-11-20] MEDS: NYSTATIN/TRIAMCIN 15 GM CREAM 15 GM TUBE TP SCH ×2 (11:30→21:24)
[2018-11-20] MEDS: THERAHONEY GEL 1.5 OZ TUBE TP SCH ×6 (11:30→21:25)
[2018-11-20] MEDS: ZINC SULFATE 220 MG CAPSULE GT SCH (20:45)
[2018-11-20 20:46] VITALS: BP 95/55
[2018-11-20] MEDS: ENOXAPARIN SODIUM 40 MG/0.4 ML DISP.SYRIN SQ SCH (20:46)
[2018-11-20] MEDS: ATORVASTATIN 10 MG TABLET GT SCH (21:25)
[2018-11-20] MEDS: POLYETHYLENE GLYCOL 3350 17 GM POWD.PACK GT SCH (21:25)
[2018-11-21] MEDS: IPRATROPIUM NEB FS 0.5 MG/2.5 ML AMPUL.NEB NEB SCH ×4 (01:56→19:48)
[2018-11-21] MEDS: SUCRALFATE 1 G/10 ML UDC GT SCH ×4 (05:32→20:46)
[2018-11-21 07:52] VITALS: BP 116/62
[2018-11-21] MEDS: NYSTATIN/TRIAMCIN 15 GM CREAM 15 GM TUBE TP SCH ×2 (09:00→21:29)
[2018-11-21] MEDS: THERAHONEY GEL 1.5 OZ TUBE TP SCH ×6 (09:00→21:30)
[2018-11-21] MEDS: BACLOFEN (10 MG) 10 MG TABLET GT SCH ×4 (09:37→20:47)
[2018-11-21] MEDS: METHADONE HCL 10 MG TABLET GT SCH ×2 (09:37→16:42)
[2018-11-21] MEDS: GABAPENTIN 250 MG/5 ML GT SCH ×3 (09:37→16:42)
[2018-11-21] MEDS: ACIDOPHILUS/BULGARICUS 1 EACH TAB.CHEW GT SCH ×3 (09:37→16:42)
[2018-11-21] MEDS: ESCITALOPRAM OXALATE (10 MG) 10 MG TABLET GT SCH (09:37)
[2018-11-21] MEDS: PROSTAT (PYXIS) 30 ML UDC GT SCH ×3 (09:38→16:42)
[2018-11-21] MEDS: CALCITRIOL 0.25 MCG CAPSULE PO SCH (09:38)
[2018-11-21] MEDS: ASCORBIC ACID 500 MG TABLET GT SCH ×2 (09:38→16:42)
[2018-11-21] MEDS: CALCIUM CARBONATE 500 MG TAB.CHEW GT SCH ×3 (09:38→16:42)
[2018-11-21] MEDS: HYDROCODONE/APAP 5/325MG 1 EACH TABLET GT SCH ×2 (09:38→20:47)
[2018-11-21] MEDS: FAMOTIDINE (20 MG) 20 MG TABLET GT SCH ×2 (09:38→20:47)
[2018-11-21] MEDS: MULTIVIT W/MINERALS 1 TAB TABLET GT SCH (09:38)
[2018-11-21] MEDS: HYDROGEN PEROXIDE 480 ML BOTTLE TP SCH ×2 (09:42→21:00)
--- NOTE | 2018-11-21 15:12 | NUR ---
Spoke with Vilma patient's gonuox-ob-qua and obtain flu vaccine consent, Dr. Ugarte gave the order for flu vaccine.
[2018-11-21] MEDS: MAGNESIUM HYDROXIDE 30 ML UDC GT PRN (18:32)
[2018-11-21 19:42] VITALS: BP 100/56
[2018-11-21] MEDS: ZINC SULFATE 220 MG CAPSULE GT SCH (20:47)
[2018-11-21] MEDS: ENOXAPARIN SODIUM 40 MG/0.4 ML DISP.SYRIN SQ SCH (20:48)
[2018-11-21] MEDS: POLYETHYLENE GLYCOL 3350 17 GM POWD.PACK GT SCH (21:30)
[2018-11-21] MEDS: ATORVASTATIN 10 MG TABLET GT SCH (21:30)
[2018-11-22] MEDS: METHOCARBAMOL (750MG) 750 MG TABLET GT PRN (00:50)
[2018-11-22] MEDS: IPRATROPIUM NEB FS 0.5 MG/2.5 ML AMPUL.NEB NEB SCH ×4 (01:51→19:47)
--- NOTE | 2018-11-22 02:44 | NUR ---
pt rec'd trached cool aerosol 28% FIO2. [facility] on AC mode @ midnight per md orders. no resp distress or sob noted. trach is patent and secured. sx'd for small amt of pale yellow secretions. alarms are set and audible. vent plugged into red outlet. ambu bag bedside. will continue to monitor. Addendum: 11/22/18 at 0245 by CAITLIN SOTO RT Amended: Links added.
[2018-11-22] MEDS: SUCRALFATE 1 G/10 ML UDC GT SCH ×4 (05:38→20:39)
[2018-11-22 07:59] VITALS: BP 110/63
[2018-11-22] MEDS: THERAHONEY GEL 1.5 OZ TUBE TP SCH ×6 (09:00→20:40)
[2018-11-22] MEDS: NYSTATIN/TRIAMCIN 15 GM CREAM 15 GM TUBE TP SCH ×2 (09:00→20:40)
[2018-11-22] MEDS: HYDROGEN PEROXIDE 480 ML BOTTLE TP SCH ×2 (09:00→20:40)
[2018-11-22] MEDS: BACLOFEN (10 MG) 10 MG TABLET GT SCH ×4 (09:14→20:39)
[2018-11-22] MEDS: ACIDOPHILUS/BULGARICUS 1 EACH TAB.CHEW GT SCH ×3 (09:14→17:00)
[2018-11-22] MEDS: ESCITALOPRAM OXALATE (10 MG) 10 MG TABLET GT SCH (09:14)
[2018-11-22] MEDS: GABAPENTIN 250 MG/5 ML GT SCH ×3 (09:14→17:00)
[2018-11-22] MEDS: METHADONE HCL 10 MG TABLET GT SCH ×2 (09:16→17:00)
[2018-11-22] MEDS: FAMOTIDINE (20 MG) 20 MG TABLET GT SCH ×2 (09:17→20:40)
[2018-11-22] MEDS: PROSTAT (PYXIS) 30 ML UDC GT SCH ×3 (09:17→17:00)
[2018-11-22] MEDS: CALCITRIOL 0.25 MCG CAPSULE PO SCH (09:17)
[2018-11-22] MEDS: CALCIUM CARBONATE 500 MG TAB.CHEW GT SCH ×3 (09:17→17:00)
[2018-11-22] MEDS: ASCORBIC ACID 500 MG TABLET GT SCH ×2 (09:17→17:00)
[2018-11-22] MEDS: HYDROCODONE/APAP 5/325MG 1 EACH TABLET GT SCH ×2 (09:17→20:40)
[2018-11-22] MEDS: MULTIVIT W/MINERALS 1 TAB TABLET GT SCH (09:17)
--- NOTE | 2018-11-22 16:23 | NUR ---
November Family Support Group: Patient's family was unable to attend. SW will invite family to the December Family Support Group.
--- NOTE | 2018-11-22 19:20 | NUR ---
Seen and examined by CARLI GASPAR.
[2018-11-22 19:32] VITALS: BP 111/70
--- NOTE | 2018-11-22 19:59 | NUR ---
PATIENT RECEIVED ON COOL AEROSOL. PLACED PATIENT ON MECHANICAL VENTILATION PER NOC ORDER. PT IS AWAKE AND ALERT. CUFF CHECKED VIA CHLORINATOR OPERATOR. AMBU BAG/BACK UP TRACH @ BEDSIDE. VENT PLUGGED INTO RED OUTLET. ALARMS ON AND AUDIBLE. TX GIVEN, NO ADVERSE REACTIONS NOTED. SX DONE, PATIENT STABLE. WILL MONITOR Addendum: 11/23/18 at 0317 by SO ROE RT PLACED PT ON VENT @ 0005
[2018-11-22] MEDS: ZINC SULFATE 220 MG CAPSULE GT SCH (20:40)
[2018-11-22] MEDS: ENOXAPARIN SODIUM 40 MG/0.4 ML DISP.SYRIN SQ SCH (20:40)
[2018-11-22] MEDS: ATORVASTATIN 10 MG TABLET GT SCH (21:15)
[2018-11-22] MEDS: POLYETHYLENE GLYCOL 3350 17 GM POWD.PACK GT SCH (21:15)
[2018-11-23] MEDS: IPRATROPIUM NEB FS 0.5 MG/2.5 ML AMPUL.NEB NEB SCH ×4 (01:42→19:24)
[2018-11-23] MEDS: SUCRALFATE 1 G/10 ML UDC GT SCH ×4 (05:44→20:55)
[2018-11-23 07:47] VITALS: BP 118/65
[2018-11-23] MEDS: GABAPENTIN 250 MG/5 ML GT SCH ×3 (08:26→16:16)
[2018-11-23] MEDS: BACLOFEN (10 MG) 10 MG TABLET GT SCH ×4 (08:26→20:55)
[2018-11-23] MEDS: ACIDOPHILUS/BULGARICUS 1 EACH TAB.CHEW GT SCH ×3 (08:26→16:16)
[2018-11-23] MEDS: ESCITALOPRAM OXALATE (10 MG) 10 MG TABLET GT SCH (08:26)
[2018-11-23] MEDS: METHADONE HCL 10 MG TABLET GT SCH ×2 (08:46→16:16)
[2018-11-23] MEDS: MULTIVIT W/MINERALS 1 TAB TABLET GT SCH (08:47)
[2018-11-23] MEDS: CALCITRIOL 0.25 MCG CAPSULE PO SCH (08:47)
[2018-11-23] MEDS: CALCIUM CARBONATE 500 MG TAB.CHEW GT SCH ×3 (08:47→16:16)
[2018-11-23] MEDS: PROSTAT (PYXIS) 30 ML UDC GT SCH ×3 (08:47→16:16)
[2018-11-23] MEDS: HYDROCODONE/APAP 5/325MG 1 EACH TABLET GT SCH ×2 (08:47→20:56)
[2018-11-23] MEDS: FAMOTIDINE (20 MG) 20 MG TABLET GT SCH ×2 (08:47→20:56)
[2018-11-23] MEDS: ASCORBIC ACID 500 MG TABLET GT SCH ×2 (08:47→16:16)
[2018-11-23] MEDS: HYDROGEN PEROXIDE 480 ML BOTTLE TP SCH ×2 (08:58→20:24)
[2018-11-23] MEDS: NYSTATIN/TRIAMCIN 15 GM CREAM 15 GM TUBE TP SCH ×2 (09:00→20:56)
[2018-11-23] MEDS: THERAHONEY GEL 1.5 OZ TUBE TP SCH ×6 (09:00→20:56)
[2018-11-23] MEDS ORDERED: INFLUENZA VACCINE 2019-20 0.5 ML DISP.SYRIN IM ONE (10:00)
--- NOTE | 2018-11-23 17:21 | NUR ---
Pt receive stable on ordered CA 28% FiO2, treatment given and no adverse reaction observe, spare trach and ambu bag at bedside. Trach care done and sxn PRN , Trach patent and secured, pt remained stable the whole shift, will contine to minitor
--- NOTE | 2018-11-23 20:47 | NUR ---
PT RCVD TRACH'D ON COOL AEROSOL WITH CHARTED SETTINGS. PT TERRANCE TX WELL. SX DONE. PT TRACH IS PATENT AND SECURE. AMBU BAG AT BEDSIDE. Addendum: 11/23/18 at 2046 by LUCIANA TRIMBLE RT Amended: Links added.
[2018-11-23] MEDS: ENOXAPARIN SODIUM 40 MG/0.4 ML DISP.SYRIN SQ SCH (20:56)
[2018-11-23] MEDS: ZINC SULFATE 220 MG CAPSULE GT SCH (20:56)
[2018-11-23] MEDS: POLYETHYLENE GLYCOL 3350 17 GM POWD.PACK GT SCH (21:03)
[2018-11-23] MEDS: ATORVASTATIN 10 MG TABLET GT SCH (21:03)
[2018-11-23] MEDS: METHOCARBAMOL (750MG) 750 MG TABLET GT PRN (23:45)
[2018-11-24] MEDS: IPRATROPIUM NEB FS 0.5 MG/2.5 ML AMPUL.NEB NEB SCH ×4 (00:35→20:08)
[2018-11-24] MEDS: SUCRALFATE 1 G/10 ML UDC GT SCH ×4 (05:37→19:50)
--- NOTE | 2018-11-24 06:08 | NUR ---
S/P Flu vaccination - afebrile.
[2018-11-24 07:35] VITALS: BP 128/72
[2018-11-24] MEDS: HYDROGEN PEROXIDE 480 ML BOTTLE TP SCH ×2 (08:27→20:02)
[2018-11-24] MEDS: ESCITALOPRAM OXALATE (10 MG) 10 MG TABLET GT SCH (09:12)
[2018-11-24] MEDS: ACIDOPHILUS/BULGARICUS 1 EACH TAB.CHEW GT SCH ×3 (09:12→16:31)
[2018-11-24] MEDS: FAMOTIDINE (20 MG) 20 MG TABLET GT SCH ×2 (09:13→20:00)
[2018-11-24] MEDS: PROSTAT (PYXIS) 30 ML UDC GT SCH ×3 (09:13→16:31)
[2018-11-24] MEDS: BACLOFEN (10 MG) 10 MG TABLET GT SCH ×4 (09:13→20:00)
[2018-11-24] MEDS: ASCORBIC ACID 500 MG TABLET GT SCH ×2 (09:13→16:32)
[2018-11-24] MEDS: CALCIUM CARBONATE 500 MG TAB.CHEW GT SCH ×3 (09:14→16:31)
[2018-11-24] MEDS: CALCITRIOL 0.25 MCG CAPSULE PO SCH (09:14)
[2018-11-24] MEDS: THERAHONEY GEL 1.5 OZ TUBE TP SCH ×6 (09:14→20:02)
[2018-11-24] MEDS: NYSTATIN/TRIAMCIN 15 GM CREAM 15 GM TUBE TP SCH ×2 (09:14→20:02)
[2018-11-24] MEDS: MULTIVIT W/MINERALS 1 TAB TABLET GT SCH (09:15)
[2018-11-24] MEDS: HYDROCODONE/APAP 5/325MG 1 EACH TABLET GT SCH ×2 (09:17→20:00)
[2018-11-24] MEDS: METHADONE HCL 10 MG TABLET GT SCH ×2 (09:24→16:38)
[2018-11-24] MEDS: GABAPENTIN 250 MG/5 ML GT SCH ×3 (09:26→16:29)
--- NOTE | 2018-11-24 15:13 | NUR ---
No adverse reactions to flu vaccine noted.
--- NOTE | 2018-11-24 18:46 | NUR ---
RN NOTE PT HAS BEEN AFEBRILE THROUGHOUT SHIFT
[2018-11-24] MEDS: ZINC SULFATE 220 MG CAPSULE GT SCH (20:00)
[2018-11-24] MEDS: MAGNESIUM HYDROXIDE 30 ML UDC GT PRN (20:02)
[2018-11-24] MEDS: ENOXAPARIN SODIUM 40 MG/0.4 ML DISP.SYRIN SQ SCH (20:02)
[2018-11-24 20:06] VITALS: BP 116/70
[2018-11-24] MEDS: ATORVASTATIN 10 MG TABLET GT SCH (21:05)
[2018-11-24] MEDS: POLYETHYLENE GLYCOL 3350 17 GM POWD.PACK GT SCH (21:05)
[2018-11-25] MEDS: IPRATROPIUM NEB FS 0.5 MG/2.5 ML AMPUL.NEB NEB SCH ×4 (01:23→19:24)
[2018-11-25] MEDS: SUCRALFATE 1 G/10 ML UDC GT SCH ×4 (05:38→21:22)
[2018-11-25] MEDS: METHOCARBAMOL (750MG) 750 MG TABLET GT PRN (05:38)
--- NOTE | 2018-11-25 06:09 | NUR ---
Pt received on ordered CA 28% until 12 midnight , connected pt to ordered MV at 0000, Vent plug on red outlet, spare trach and ambu bag is at bedside, alarms are on and audible, all HHN tx. given and no adverse reaction observe. trach patent and secured, sxn prn, pt was stable the whole shift, no sob or respiratory distress noted during the shift, pt connected to CA 28% at 0600 no adverse reaction
[2018-11-25 07:30] VITALS: BP 124/75
[2018-11-25] MEDS: ASCORBIC ACID 500 MG TABLET GT SCH ×2 (08:45→17:15)
[2018-11-25] MEDS: ESCITALOPRAM OXALATE (10 MG) 10 MG TABLET GT SCH (08:45)
[2018-11-25] MEDS: ACIDOPHILUS/BULGARICUS 1 EACH TAB.CHEW GT SCH ×3 (08:45→17:15)
[2018-11-25] MEDS: CALCITRIOL 0.25 MCG CAPSULE PO SCH (08:45)
[2018-11-25] MEDS: MULTIVIT W/MINERALS 1 TAB TABLET GT SCH (08:45)
[2018-11-25] MEDS: BACLOFEN (10 MG) 10 MG TABLET GT SCH ×4 (08:45→21:22)
[2018-11-25] MEDS: GABAPENTIN 250 MG/5 ML GT SCH ×3 (08:45→17:15)
[2018-11-25] MEDS: FAMOTIDINE (20 MG) 20 MG TABLET GT SCH ×2 (08:45→21:22)
[2018-11-25] MEDS: PROSTAT (PYXIS) 30 ML UDC GT SCH ×3 (08:45→17:15)
[2018-11-25] MEDS: CALCIUM CARBONATE 500 MG TAB.CHEW GT SCH ×3 (08:45→17:15)
[2018-11-25] MEDS: METHADONE HCL 10 MG TABLET GT SCH ×2 (08:45→17:15)
[2018-11-25] MEDS: HYDROGEN PEROXIDE 480 ML BOTTLE TP SCH ×2 (09:35→21:23)
[2018-11-25] MEDS: HYDROCODONE/APAP 5/325MG 1 EACH TABLET GT SCH ×2 (10:30→21:22)
[2018-11-25] MEDS: NYSTATIN/TRIAMCIN 15 GM CREAM 15 GM TUBE TP SCH ×2 (11:00→21:23)
[2018-11-25] MEDS: THERAHONEY GEL 1.5 OZ TUBE TP SCH ×6 (11:00→21:23)
[2018-11-25] MEDS: HYDROCODONE/APAP 10/325MG 1 EA TABLET PO PRN (16:30)
[2018-11-25 20:08] VITALS: BP 103/65
[2018-11-25] MEDS: ZINC SULFATE 220 MG CAPSULE GT SCH (21:22)
[2018-11-25] MEDS: ATORVASTATIN 10 MG TABLET GT SCH (21:23)
[2018-11-25] MEDS: POLYETHYLENE GLYCOL 3350 17 GM POWD.PACK GT SCH (21:23)
[2018-11-25] MEDS: ENOXAPARIN SODIUM 40 MG/0.4 ML DISP.SYRIN SQ SCH (21:23)
--- NOTE | 2018-11-25 21:23 | NUR ---
RN NOTES S/P flu vaccine with no A/R noted. Will continue to monitor.
[2018-11-26] MEDS: IPRATROPIUM NEB FS 0.5 MG/2.5 ML AMPUL.NEB NEB SCH ×4 (00:56→19:32)
[2018-11-26] MEDS: HYDROCODONE/APAP 10/325MG 1 EA TABLET PO PRN (05:00)
[2018-11-26] MEDS: SUCRALFATE 1 G/10 ML UDC GT SCH ×4 (06:12→20:39)
[2018-11-26] MEDS: HYDROGEN PEROXIDE 480 ML BOTTLE TP SCH ×2 (07:08→19:32)
[2018-11-26] MEDS: BACLOFEN (10 MG) 10 MG TABLET GT SCH ×4 (08:45→20:39)
[2018-11-26] MEDS: ASCORBIC ACID 500 MG TABLET GT SCH ×2 (08:45→16:40)
[2018-11-26] MEDS: MULTIVIT W/MINERALS 1 TAB TABLET GT SCH (08:45)
[2018-11-26] MEDS: ESCITALOPRAM OXALATE (10 MG) 10 MG TABLET GT SCH (08:45)
[2018-11-26] MEDS: METHADONE HCL 10 MG TABLET GT SCH ×2 (08:45→16:39)
[2018-11-26] MEDS: CALCITRIOL 0.25 MCG CAPSULE PO SCH (08:45)
[2018-11-26] MEDS: GABAPENTIN 250 MG/5 ML GT SCH ×3 (08:45→16:39)
[2018-11-26] MEDS: PROSTAT (PYXIS) 30 ML UDC GT SCH ×3 (08:45→16:39)
[2018-11-26] MEDS: CALCIUM CARBONATE 500 MG TAB.CHEW GT SCH ×3 (08:45→16:39)
[2018-11-26] MEDS: FAMOTIDINE (20 MG) 20 MG TABLET GT SCH ×2 (08:45→20:39)
[2018-11-26] MEDS: ACIDOPHILUS/BULGARICUS 1 EACH TAB.CHEW GT SCH ×3 (08:45→16:39)
[2018-11-26] MEDS: THERAHONEY GEL 1.5 OZ TUBE TP SCH ×6 (09:00→21:38)
[2018-11-26 09:53] VITALS: BP 126/69
[2018-11-26] MEDS: HYDROCODONE/APAP 5/325MG 1 EACH TABLET GT SCH ×2 (10:30→20:40)
[2018-11-26] MEDS: NYSTATIN/TRIAMCIN 15 GM CREAM 15 GM TUBE TP SCH ×2 (11:00→21:38)
--- NOTE | 2018-11-26 16:59 | NUR ---
No adverse reaction to flu vaccine noted.
[2018-11-26 19:50] VITALS: BP 115/69
[2018-11-26] MEDS: ENOXAPARIN SODIUM 40 MG/0.4 ML DISP.SYRIN SQ SCH (20:39)
[2018-11-26] MEDS: ZINC SULFATE 220 MG CAPSULE GT SCH (20:39)
[2018-11-26] MEDS: ATORVASTATIN 10 MG TABLET GT SCH (21:38)
[2018-11-26] MEDS: POLYETHYLENE GLYCOL 3350 17 GM POWD.PACK GT SCH (21:38)
--- NOTE | 2018-11-26 23:44 | NUR ---
RT NOTE: RECEIVED TRACH PT ON COOL AEROSOL. PLACED PT ON MECH VENT ON NOTED SETTINGS PER MD ORDERS AT THIS TIME. TRACH IS PATENT AND SECURED. TRACH CARE DONE. BANANA GRADER DONE. Q6 BREATHING TX GIVEN WITH NO ADVERSE REACTION NOTED. SX DONE PRN. VENT PLUGGED INTO RED OUTLET. ALARMS ON AND AUDIBLE. AMBU BAG @ BEDSIDE. NO RESP DISTRESS AT THIS TIME. WILL CONT TO MONITOR PT. Addendum: 11/27/18 at 0303 by SOBIA VILLA RT Amended: Links added.
[2018-11-27] MEDS: IPRATROPIUM NEB FS 0.5 MG/2.5 ML AMPUL.NEB NEB SCH ×4 (01:40→19:33)
[2018-11-27] MEDS: SUCRALFATE 1 G/10 ML UDC GT SCH ×4 (05:46→21:06)
[2018-11-27] MEDS: HYDROGEN PEROXIDE 480 ML BOTTLE TP SCH ×2 (09:00→21:21)
[2018-11-27] MEDS: GABAPENTIN 250 MG/5 ML GT SCH ×3 (09:20→17:02)
[2018-11-27] MEDS: ESCITALOPRAM OXALATE (10 MG) 10 MG TABLET GT SCH (09:20)
[2018-11-27] MEDS: ACIDOPHILUS/BULGARICUS 1 EACH TAB.CHEW GT SCH ×3 (09:20→17:02)
[2018-11-27] MEDS: BACLOFEN (10 MG) 10 MG TABLET GT SCH ×4 (09:20→21:09)
[2018-11-27] MEDS: PROSTAT (PYXIS) 30 ML UDC GT SCH ×3 (09:21→17:02)
[2018-11-27] MEDS: FAMOTIDINE (20 MG) 20 MG TABLET GT SCH ×2 (09:21→21:09)
[2018-11-27] MEDS: ASCORBIC ACID 500 MG TABLET GT SCH ×2 (09:21→17:02)
[2018-11-27] MEDS: METHADONE HCL 10 MG TABLET GT SCH ×2 (09:21→17:00)
[2018-11-27] MEDS: MULTIVIT W/MINERALS 1 TAB TABLET GT SCH (09:21)
[2018-11-27] MEDS: CALCITRIOL 0.25 MCG CAPSULE PO SCH (09:21)
[2018-11-27] MEDS: CALCIUM CARBONATE 500 MG TAB.CHEW GT SCH ×3 (09:21→17:02)
[2018-11-27 10:13] VITALS: BP 129/70
[2018-11-27] MEDS: HYDROCODONE/APAP 5/325MG 1 EACH TABLET GT SCH ×2 (10:30→21:26)
[2018-11-27] MEDS: NYSTATIN/TRIAMCIN 15 GM CREAM 15 GM TUBE TP SCH ×2 (11:00→22:32)
[2018-11-27] MEDS: THERAHONEY GEL 1.5 OZ TUBE TP SCH ×6 (11:00→22:33)
[2018-11-27 20:18] VITALS: BP 112/64
--- NOTE | 2018-11-27 20:25 | NUR ---
RT NOTE PT RECEIVED TRACHED ON COOL AEROSOL @ 28%. CONT. POX CONNECTED. AMBU BAG/BACK UP TRACH @ BEDSIDE. TX GIVEN, NO ADVERSE REACTIONS NOTED. SX DONE, TRACH SECURED AND PATENT. WILL PLACE ON VENT @ 0000 PER MD ORDER. VENT PLUGGED TO RED OUTLET. NO SOB NOTED AT THIS TIME. WILL CONTINUE TO MONITOR T/O SHIFT. Addendum: 11/27/18 at 2024 by VERNELL CHRISTINE RT Amended: Links added.
[2018-11-27] MEDS: ZINC SULFATE 220 MG CAPSULE GT SCH (21:11)
[2018-11-27] MEDS: ATORVASTATIN 10 MG TABLET GT SCH (21:17)
[2018-11-27] MEDS: ENOXAPARIN SODIUM 40 MG/0.4 ML DISP.SYRIN SQ SCH (21:25)
[2018-11-27] MEDS: POLYETHYLENE GLYCOL 3350 17 GM POWD.PACK GT SCH (22:30)
[2018-11-27] MEDS: HYDROCODONE/APAP 10/325MG 1 EA TABLET PO PRN (23:44)
[2018-11-28] MEDS: IPRATROPIUM NEB FS 0.5 MG/2.5 ML AMPUL.NEB NEB SCH ×4 (01:05→20:07)
[2018-11-28] MEDS: SUCRALFATE 1 G/10 ML UDC GT SCH ×4 (06:21→20:31)
[2018-11-28 07:44] VITALS: BP 141/73
[2018-11-28] MEDS: HYDROGEN PEROXIDE 480 ML BOTTLE TP SCH ×2 (09:00→20:58)
[2018-11-28] MEDS: THERAHONEY GEL 1.5 OZ TUBE TP SCH ×6 (09:00→21:09)
[2018-11-28] MEDS: NYSTATIN/TRIAMCIN 15 GM CREAM 15 GM TUBE TP SCH ×2 (09:00→20:32)
[2018-11-28] MEDS: GABAPENTIN 250 MG/5 ML GT SCH ×3 (09:01→17:20)
[2018-11-28] MEDS: ESCITALOPRAM OXALATE (10 MG) 10 MG TABLET GT SCH (09:01)
[2018-11-28] MEDS: ACIDOPHILUS/BULGARICUS 1 EACH TAB.CHEW GT SCH ×3 (09:01→17:20)
[2018-11-28] MEDS: BACLOFEN (10 MG) 10 MG TABLET GT SCH ×4 (09:01→20:31)
[2018-11-28] MEDS: METHADONE HCL 10 MG TABLET GT SCH ×2 (09:02→17:00)
[2018-11-28] MEDS: CALCIUM CARBONATE 500 MG TAB.CHEW GT SCH ×3 (09:02→17:21)
[2018-11-28] MEDS: ASCORBIC ACID 500 MG TABLET GT SCH ×2 (09:02→17:21)
[2018-11-28] MEDS: CALCITRIOL 0.25 MCG CAPSULE PO SCH (09:02)
[2018-11-28] MEDS: MULTIVIT W/MINERALS 1 TAB TABLET GT SCH (09:02)
[2018-11-28] MEDS: FAMOTIDINE (20 MG) 20 MG TABLET GT SCH ×2 (09:02→20:31)
[2018-11-28] MEDS: PROSTAT (PYXIS) 30 ML UDC GT SCH ×3 (09:02→17:21)
[2018-11-28] MEDS: HYDROCODONE/APAP 5/325MG 1 EACH TABLET GT SCH ×2 (09:02→20:31)
[2018-11-28 20:28] VITALS: BP 116/75
[2018-11-28] MEDS: ZINC SULFATE 220 MG CAPSULE GT SCH (20:31)
[2018-11-28] MEDS: ENOXAPARIN SODIUM 40 MG/0.4 ML DISP.SYRIN SQ SCH (20:32)
[2018-11-28] MEDS: ATORVASTATIN 10 MG TABLET GT SCH (21:09)
[2018-11-28] MEDS: POLYETHYLENE GLYCOL 3350 17 GM POWD.PACK GT SCH (21:09)
[2018-11-28] MEDS: METHOCARBAMOL (750MG) 750 MG TABLET GT PRN (23:36)
[2018-11-29] MEDS: IPRATROPIUM NEB FS 0.5 MG/2.5 ML AMPUL.NEB NEB SCH ×4 (01:30→19:42)
[2018-11-29] MEDS: SUCRALFATE 1 G/10 ML UDC GT SCH ×4 (05:34→21:18)
[2018-11-29 07:36] VITALS: BP 129/71
[2018-11-29] MEDS: NYSTATIN/TRIAMCIN 15 GM CREAM 15 GM TUBE TP SCH ×2 (09:00→21:48)
[2018-11-29] MEDS: THERAHONEY GEL 1.5 OZ TUBE TP SCH ×6 (09:00→21:48)
[2018-11-29] MEDS: HYDROGEN PEROXIDE 480 ML BOTTLE TP SCH ×2 (09:00→21:00)
[2018-11-29] MEDS: ESCITALOPRAM OXALATE (10 MG) 10 MG TABLET GT SCH (09:12)
[2018-11-29] MEDS: BACLOFEN (10 MG) 10 MG TABLET GT SCH ×4 (09:12→21:18)
[2018-11-29] MEDS: GABAPENTIN 250 MG/5 ML GT SCH ×3 (09:12→16:33)
[2018-11-29] MEDS: ACIDOPHILUS/BULGARICUS 1 EACH TAB.CHEW GT SCH ×3 (09:12→16:33)
[2018-11-29] MEDS: METHADONE HCL 10 MG TABLET GT SCH ×2 (09:12→16:36)
[2018-11-29] MEDS: FAMOTIDINE (20 MG) 20 MG TABLET GT SCH ×2 (09:13→21:19)
[2018-11-29] MEDS: MULTIVIT W/MINERALS 1 TAB TABLET GT SCH (09:13)
[2018-11-29] MEDS: HYDROCODONE/APAP 5/325MG 1 EACH TABLET GT SCH ×2 (09:13→21:19)
[2018-11-29] MEDS: CALCIUM CARBONATE 500 MG TAB.CHEW GT SCH ×3 (09:13→16:36)
[2018-11-29] MEDS: CALCITRIOL 0.25 MCG CAPSULE PO SCH (09:13)
[2018-11-29] MEDS: ASCORBIC ACID 500 MG TABLET GT SCH ×2 (09:13→16:36)
[2018-11-29] MEDS: PROSTAT (PYXIS) 30 ML UDC GT SCH ×3 (09:13→16:36)
[2018-11-29] MEDS: METHOCARBAMOL (750MG) 750 MG TABLET GT PRN (16:48)
[2018-11-29] MEDS: POLYETHYLENE GLYCOL 3350 17 GM POWD.PACK GT SCH (21:19)
[2018-11-29] MEDS: ZINC SULFATE 220 MG CAPSULE GT SCH (21:19)
[2018-11-29] MEDS: ATORVASTATIN 10 MG TABLET GT SCH (21:19)
[2018-11-29] MEDS: ENOXAPARIN SODIUM 40 MG/0.4 ML DISP.SYRIN SQ SCH (21:20)
[2018-11-29 22:43] VITALS: BP 109/63
[2018-11-30] MEDS: IPRATROPIUM NEB FS 0.5 MG/2.5 ML AMPUL.NEB NEB SCH ×4 (01:37→19:30)
--- NOTE | 2018-11-30 04:53 | NUR ---
Pt receive stable on CA 28%, spare trach and ambu bag is at bedside. trach patent and secured. At 0000 switch pt from Cool aerosol to ordered MV, pt stable on vent, no adverse effect noted. Will be switching back pt to CA 28% at 0600, will continue to monitor during the shift.
[2018-11-30] MEDS: SUCRALFATE 1 G/10 ML UDC GT SCH ×4 (05:55→21:04)
[2018-11-30 08:00] VITALS: BP 124/69
[2018-11-30] MEDS: HYDROGEN PEROXIDE 480 ML BOTTLE TP SCH ×2 (08:38→21:00)
[2018-11-30] MEDS: GABAPENTIN 250 MG/5 ML GT SCH ×3 (09:00→16:48)
[2018-11-30] MEDS: MULTIVIT W/MINERALS 1 TAB TABLET GT SCH (09:00)
[2018-11-30] MEDS: FAMOTIDINE (20 MG) 20 MG TABLET GT SCH ×2 (09:00→21:05)
[2018-11-30] MEDS: CALCITRIOL 0.25 MCG CAPSULE PO SCH (09:00)
[2018-11-30] MEDS: CALCIUM CARBONATE 500 MG TAB.CHEW GT SCH ×3 (09:00→16:52)
[2018-11-30] MEDS: ESCITALOPRAM OXALATE (10 MG) 10 MG TABLET GT SCH (09:00)
[2018-11-30] MEDS: ACIDOPHILUS/BULGARICUS 1 EACH TAB.CHEW GT SCH ×3 (09:00→16:52)
[2018-11-30] MEDS: BACLOFEN (10 MG) 10 MG TABLET GT SCH ×4 (09:00→21:04)
[2018-11-30] MEDS: PROSTAT (PYXIS) 30 ML UDC GT SCH ×3 (09:00→16:52)
[2018-11-30] MEDS: NYSTATIN/TRIAMCIN 15 GM CREAM 15 GM TUBE TP SCH ×2 (09:00→21:48)
[2018-11-30] MEDS: THERAHONEY GEL 1.5 OZ TUBE TP SCH ×6 (09:00→21:49)
[2018-11-30] MEDS: ASCORBIC ACID 500 MG TABLET GT SCH ×2 (09:00→16:52)
[2018-11-30] MEDS: METHADONE HCL 10 MG TABLET GT SCH ×2 (09:00→17:03)
[2018-11-30] MEDS: HYDROCODONE/APAP 5/325MG 1 EACH TABLET GT SCH ×2 (09:30→21:05)
[2018-11-30 20:32] VITALS: BP 113/66
[2018-11-30] MEDS ORDERED: NEOMY SULF/BACITRAC ZN/POLY 15 GM TUBE TP SCH (21:00)
[2018-11-30] MEDS: POLYETHYLENE GLYCOL 3350 17 GM POWD.PACK GT SCH (21:05)
[2018-11-30] MEDS: ENOXAPARIN SODIUM 40 MG/0.4 ML DISP.SYRIN SQ SCH (21:05)
[2018-11-30] MEDS: ATORVASTATIN 10 MG TABLET GT SCH (21:05)
[2018-11-30] MEDS: ZINC SULFATE 220 MG CAPSULE GT SCH (21:05)
[2018-11-30] MEDS: BACI/NEOM/POLY B OINT PKT 1 UDPKT PACKET TP SCH (21:48)
[2018-12-01] MEDS: IPRATROPIUM NEB FS 0.5 MG/2.5 ML AMPUL.NEB NEB SCH ×4 (02:15→19:38)
[2018-12-01] MEDS: SUCRALFATE 1 G/10 ML UDC GT SCH ×4 (05:47→20:30)
[2018-12-01 08:27] VITALS: BP 108/54
[2018-12-01] MEDS: THERAHONEY GEL 1.5 OZ TUBE TP SCH ×6 (09:00→21:00)
[2018-12-01] MEDS: MULTIVIT W/MINERALS 1 TAB TABLET GT SCH (09:00)
[2018-12-01] MEDS: BACLOFEN (10 MG) 10 MG TABLET GT SCH ×4 (09:00→21:00)
[2018-12-01] MEDS: CALCIUM CARBONATE 500 MG TAB.CHEW GT SCH ×3 (09:00→17:00)
[2018-12-01] MEDS: ASCORBIC ACID 500 MG TABLET GT SCH ×2 (09:00→17:00)
[2018-12-01] MEDS: BACI/NEOM/POLY B OINT PKT 1 UDPKT PACKET TP SCH ×2 (09:00→21:00)
[2018-12-01] MEDS: PROSTAT (PYXIS) 30 ML UDC GT SCH ×3 (09:00→17:00)
[2018-12-01] MEDS: FAMOTIDINE (20 MG) 20 MG TABLET GT SCH ×2 (09:00→21:00)
[2018-12-01] MEDS: HYDROGEN PEROXIDE 480 ML BOTTLE TP SCH ×2 (09:00→21:00)
[2018-12-01] MEDS: GABAPENTIN 250 MG/5 ML GT SCH ×3 (09:00→17:00)
[2018-12-01] MEDS: NYSTATIN/TRIAMCIN 15 GM CREAM 15 GM TUBE TP SCH ×2 (09:00→21:00)
[2018-12-01] MEDS: HYDROCODONE/APAP 5/325MG 1 EACH TABLET GT SCH ×2 (09:00→21:00)
[2018-12-01] MEDS: ACIDOPHILUS/BULGARICUS 1 EACH TAB.CHEW GT SCH ×3 (09:00→17:00)
[2018-12-01] MEDS: ESCITALOPRAM OXALATE (10 MG) 10 MG TABLET GT SCH (09:00)
[2018-12-01] MEDS: CALCITRIOL 0.25 MCG CAPSULE PO SCH (09:00)
[2018-12-01] MEDS: METHADONE HCL 10 MG TABLET GT SCH ×2 (09:00→17:00)
[2018-12-01 20:42] VITALS: BP 102/69
[2018-12-01] MEDS: ENOXAPARIN SODIUM 40 MG/0.4 ML DISP.SYRIN SQ SCH (21:00)
[2018-12-01] MEDS: ZINC SULFATE 220 MG CAPSULE GT SCH (21:00)
[2018-12-01] MEDS: POLYETHYLENE GLYCOL 3350 17 GM POWD.PACK GT SCH (22:36)
[2018-12-01] MEDS: ATORVASTATIN 10 MG TABLET GT SCH (22:36)
[2018-12-02] MEDS: IPRATROPIUM NEB FS 0.5 MG/2.5 ML AMPUL.NEB NEB SCH ×4 (01:27→19:52)
[2018-12-02] MEDS: HYDROCODONE/APAP 10/325MG 1 EA TABLET PO PRN (03:05)
[2018-12-02] MEDS: SUCRALFATE 1 G/10 ML UDC GT SCH ×4 (05:54→21:25)
--- NOTE | 2018-12-02 06:17 | NUR ---
RT PATIENT WAS RECEIVED ON COOL AEROSOL AND PLACED ON VENT ON NOTED VENT SETTINGS DURING MIDNIGHT PER MD ORDER.PATIENT STABLE THROUGHOUT THE SHIFT.HHN TREATMENT WAS GIVEN, NO ADVERSE REACTION NOTED. AIRWAY PATENT AND SECURED. WILL CONTINUE TO MONITOR. Addendum: 12/02/18 at 0617 by ROM ARAIZA RT Amended: Links added.
[2018-12-02 08:22] VITALS: BP 134/56
--- NOTE | 2018-12-02 08:25 | NUR ---
RT Pt is awake and alert on cool aerosol tolerating well. HHN tx tolerated well with no adverse reactions. No respiratory distress noted. Addendum: 12/02/18 at 1543 by ESPERANZA HOOPER RT Amended: Links added.
[2018-12-02] MEDS: PROSTAT (PYXIS) 30 ML UDC GT SCH ×3 (09:00→17:00)
[2018-12-02] MEDS: ESCITALOPRAM OXALATE (10 MG) 10 MG TABLET GT SCH (09:00)
[2018-12-02] MEDS: MULTIVIT W/MINERALS 1 TAB TABLET GT SCH (09:00)
[2018-12-02] MEDS: FAMOTIDINE (20 MG) 20 MG TABLET GT SCH ×2 (09:00→21:27)
[2018-12-02] MEDS: HYDROGEN PEROXIDE 480 ML BOTTLE TP SCH ×2 (09:00→21:00)
[2018-12-02] MEDS: ASCORBIC ACID 500 MG TABLET GT SCH ×2 (09:00→17:00)
[2018-12-02] MEDS: METHADONE HCL 10 MG TABLET GT SCH ×2 (09:00→17:00)
[2018-12-02] MEDS: BACLOFEN (10 MG) 10 MG TABLET GT SCH ×4 (09:00→21:27)
[2018-12-02] MEDS: CALCITRIOL 0.25 MCG CAPSULE PO SCH (09:00)
[2018-12-02] MEDS: ACIDOPHILUS/BULGARICUS 1 EACH TAB.CHEW GT SCH ×3 (09:00→17:00)
[2018-12-02] MEDS: GABAPENTIN 250 MG/5 ML GT SCH ×3 (09:00→17:00)
[2018-12-02] MEDS: THERAHONEY GEL 1.5 OZ TUBE TP SCH ×6 (09:00→21:29)
[2018-12-02] MEDS: CALCIUM CARBONATE 500 MG TAB.CHEW GT SCH ×3 (09:00→17:00)
[2018-12-02] MEDS: HYDROCODONE/APAP 5/325MG 1 EACH TABLET GT SCH ×2 (10:30→21:27)
[2018-12-02] MEDS: NYSTATIN/TRIAMCIN 15 GM CREAM 15 GM TUBE TP SCH ×2 (11:00→21:29)
[2018-12-02] MEDS: BACI/NEOM/POLY B OINT PKT 1 UDPKT PACKET TP SCH ×2 (11:00→21:29)
[2018-12-02 20:39] VITALS: BP 99/64
[2018-12-02] MEDS: ZINC SULFATE 220 MG CAPSULE GT SCH (21:28)
[2018-12-02] MEDS: ATORVASTATIN 10 MG TABLET GT SCH (21:29)
[2018-12-02] MEDS: ENOXAPARIN SODIUM 40 MG/0.4 ML DISP.SYRIN SQ SCH (21:29)
[2018-12-02] MEDS: POLYETHYLENE GLYCOL 3350 17 GM POWD.PACK GT SCH (21:30)
[2018-12-03] MEDS: IPRATROPIUM NEB FS 0.5 MG/2.5 ML AMPUL.NEB NEB SCH ×4 (01:34→19:57)
[2018-12-03] MEDS: SUCRALFATE 1 G/10 ML UDC GT SCH ×4 (05:37→20:34)
[2018-12-03 07:52] VITALS: BP 109/63
[2018-12-03] MEDS: HYDROGEN PEROXIDE 480 ML BOTTLE TP SCH ×2 (08:01→21:45)
[2018-12-03] MEDS: METHADONE HCL 10 MG TABLET GT SCH ×2 (09:29→17:05)
[2018-12-03] MEDS: CALCITRIOL 0.25 MCG CAPSULE PO SCH (09:29)
[2018-12-03] MEDS: ASCORBIC ACID 500 MG TABLET GT SCH ×2 (09:29→17:05)
[2018-12-03] MEDS: ACIDOPHILUS/BULGARICUS 1 EACH TAB.CHEW GT SCH ×3 (09:29→17:05)
[2018-12-03] MEDS: MULTIVIT W/MINERALS 1 TAB TABLET GT SCH (09:29)
[2018-12-03] MEDS: ESCITALOPRAM OXALATE (10 MG) 10 MG TABLET GT SCH (09:29)
[2018-12-03] MEDS: BACLOFEN (10 MG) 10 MG TABLET GT SCH ×4 (09:29→20:34)
[2018-12-03] MEDS: FAMOTIDINE (20 MG) 20 MG TABLET GT SCH ×2 (09:29→20:35)
[2018-12-03] MEDS: GABAPENTIN 250 MG/5 ML GT SCH ×3 (09:29→17:04)
[2018-12-03] MEDS: PROSTAT (PYXIS) 30 ML UDC GT SCH ×3 (09:29→17:05)
[2018-12-03] MEDS: CALCIUM CARBONATE 500 MG TAB.CHEW GT SCH ×3 (09:29→17:05)
[2018-12-03] MEDS: HYDROCODONE/APAP 5/325MG 1 EACH TABLET GT SCH ×3 (10:00→20:35)
[2018-12-03] MEDS: NYSTATIN/TRIAMCIN 15 GM CREAM 15 GM TUBE TP SCH ×2 (10:30→20:36)
[2018-12-03] MEDS: BACI/NEOM/POLY B OINT PKT 1 UDPKT PACKET TP SCH ×2 (10:30→21:19)
[2018-12-03] MEDS: THERAHONEY GEL 1.5 OZ TUBE TP SCH ×6 (10:30→21:19)
--- NOTE | 2018-12-03 16:00 | NUR ---
Pt noted with several tissue growths on his forehead. Informed Dr Rafiq Diaz. He said he will see pt.
--- NOTE | 2018-12-03 20:00 | NUR ---
RT NOTES PT RECEIVED TRACHED ON COOL AEROSOL FIO2 28% VIA TRACH MASK. NO SIGNS OF RESP DISTRESS/SOB NOTED. AIRWAY PATENT AND SECURED. PT SUCTIONED. HHN TX GIVEN. NO ADVERSE REACTIONS NOTED. AMBUBAG AND SPARE TRACH AT HEAD OF BED. WILL CONT TO MONITOR. Addendum: 12/03/18 at 2206 by DAMON PAZ RT Amended: Links added.
[2018-12-03 20:10] VITALS: BP 100/65
[2018-12-03] MEDS: ZINC SULFATE 220 MG CAPSULE GT SCH (20:35)
[2018-12-03] MEDS: ENOXAPARIN SODIUM 40 MG/0.4 ML DISP.SYRIN SQ SCH (20:36)
[2018-12-03] MEDS: POLYETHYLENE GLYCOL 3350 17 GM POWD.PACK GT SCH (21:19)
[2018-12-03] MEDS: ATORVASTATIN 10 MG TABLET GT SCH (21:19)
[2018-12-04] MEDS: METHOCARBAMOL (750MG) 750 MG TABLET GT PRN (00:04)
[2018-12-04] MEDS: IPRATROPIUM NEB FS 0.5 MG/2.5 ML AMPUL.NEB NEB SCH ×4 (01:19→19:48)
[2018-12-04] MEDS: SUCRALFATE 1 G/10 ML UDC GT SCH ×4 (05:38→20:34)
[2018-12-04] MEDS: HYDROGEN PEROXIDE 480 ML BOTTLE TP SCH ×2 (09:00→20:33)
[2018-12-04] MEDS: FAMOTIDINE (20 MG) 20 MG TABLET GT SCH ×2 (09:48→20:34)
[2018-12-04] MEDS: BACLOFEN (10 MG) 10 MG TABLET GT SCH ×4 (09:48→20:34)
[2018-12-04] MEDS: MULTIVIT W/MINERALS 1 TAB TABLET GT SCH (09:48)
[2018-12-04] MEDS: CALCIUM CARBONATE 500 MG TAB.CHEW GT SCH ×3 (09:48→17:13)
[2018-12-04] MEDS: ESCITALOPRAM OXALATE (10 MG) 10 MG TABLET GT SCH (09:48)
[2018-12-04] MEDS: METHADONE HCL 10 MG TABLET GT SCH ×2 (09:48→17:13)
[2018-12-04] MEDS: ACIDOPHILUS/BULGARICUS 1 EACH TAB.CHEW GT SCH ×3 (09:48→17:13)
[2018-12-04] MEDS: CALCITRIOL 0.25 MCG CAPSULE PO SCH (09:48)
[2018-12-04] MEDS: GABAPENTIN 250 MG/5 ML GT SCH ×3 (09:48→17:13)
[2018-12-04] MEDS: ASCORBIC ACID 500 MG TABLET GT SCH ×2 (09:48→17:13)
[2018-12-04] MEDS: PROSTAT (PYXIS) 30 ML UDC GT SCH ×3 (09:48→17:13)
[2018-12-04] MEDS: HYDROCODONE/APAP 5/325MG 1 EACH TABLET GT SCH ×2 (10:00→20:34)
[2018-12-04] MEDS: BACI/NEOM/POLY B OINT PKT 1 UDPKT PACKET TP SCH ×2 (10:30→20:35)
[2018-12-04] MEDS: THERAHONEY GEL 1.5 OZ TUBE TP SCH ×6 (10:30→21:22)
[2018-12-04] MEDS: NYSTATIN/TRIAMCIN 15 GM CREAM 15 GM TUBE TP SCH ×2 (10:30→20:35)
[2018-12-04 11:59] VITALS: BP 98/59
[2018-12-04 20:18] VITALS: BP 105/61
[2018-12-04] MEDS: ZINC SULFATE 220 MG CAPSULE GT SCH (20:34)
[2018-12-04] MEDS: ENOXAPARIN SODIUM 40 MG/0.4 ML DISP.SYRIN SQ SCH (20:35)
[2018-12-04] MEDS: MAGNESIUM HYDROXIDE 30 ML UDC GT PRN (20:42)
[2018-12-04] MEDS: ATORVASTATIN 10 MG TABLET GT SCH (21:22)
[2018-12-04] MEDS: POLYETHYLENE GLYCOL 3350 17 GM POWD.PACK GT SCH (21:22)
--- NOTE | 2018-12-04 21:33 | NUR ---
RT NOTE PT RECEIVED ON COOL AEROSOL @ 28%. AMBU BAG/BACK UP TRACH @ BEDSIDE. TX GIVEN, NO ADVERSE REACTIONS NOTED. SX DONE, TRACH SECURED AND PATENT. NO SOB NOTED. WATER LEVEL GOOD. WILL PLACE ON MECHANICAL VENTILATION @ 0000. WILL CONTINUE TO MONITOR T/O SHIFT. Addendum: 12/04/18 at 2136 by VERNELL CHRISTINE RT Amended: Links added.
[2018-12-05] MEDS: METHOCARBAMOL (750MG) 750 MG TABLET GT PRN ×2 (00:15→23:18)
[2018-12-05] MEDS: IPRATROPIUM NEB FS 0.5 MG/2.5 ML AMPUL.NEB NEB SCH ×4 (01:48→19:37)
[2018-12-05] MEDS: SUCRALFATE 1 G/10 ML UDC GT SCH ×4 (06:41→20:35)
[2018-12-05 07:50] VITALS: BP 121/61
[2018-12-05] MEDS: BACI/NEOM/POLY B OINT PKT 1 UDPKT PACKET TP SCH ×2 (09:00→21:19)
[2018-12-05] MEDS: THERAHONEY GEL 1.5 OZ TUBE TP SCH ×6 (09:00→21:19)
[2018-12-05] MEDS: NYSTATIN/TRIAMCIN 15 GM CREAM 15 GM TUBE TP SCH ×2 (09:00→21:19)
[2018-12-05] MEDS: HYDROGEN PEROXIDE 480 ML BOTTLE TP SCH ×2 (09:01→21:00)
[2018-12-05] MEDS: BACLOFEN (10 MG) 10 MG TABLET GT SCH ×4 (09:13→20:35)
[2018-12-05] MEDS: ACIDOPHILUS/BULGARICUS 1 EACH TAB.CHEW GT SCH ×3 (09:13→17:43)
[2018-12-05] MEDS: ESCITALOPRAM OXALATE (10 MG) 10 MG TABLET GT SCH (09:13)
[2018-12-05] MEDS: GABAPENTIN 250 MG/5 ML GT SCH ×3 (09:13→17:43)
[2018-12-05] MEDS: CALCIUM CARBONATE 500 MG TAB.CHEW GT SCH ×3 (09:14→17:45)
[2018-12-05] MEDS: CALCITRIOL 0.25 MCG CAPSULE PO SCH (09:14)
[2018-12-05] MEDS: ASCORBIC ACID 500 MG TABLET GT SCH ×2 (09:14→17:45)
[2018-12-05] MEDS: MULTIVIT W/MINERALS 1 TAB TABLET GT SCH (09:14)
[2018-12-05] MEDS: HYDROCODONE/APAP 5/325MG 1 EACH TABLET GT SCH ×2 (09:14→20:36)
[2018-12-05] MEDS: FAMOTIDINE (20 MG) 20 MG TABLET GT SCH ×2 (09:14→20:36)
[2018-12-05] MEDS: METHADONE HCL 10 MG TABLET GT SCH ×2 (09:14→17:44)
[2018-12-05] MEDS: PROSTAT (PYXIS) 30 ML UDC GT SCH ×3 (09:14→17:44)
[2018-12-05 20:11] VITALS: BP 131/79
[2018-12-05] MEDS: ZINC SULFATE 220 MG CAPSULE GT SCH (20:36)
[2018-12-05] MEDS: ENOXAPARIN SODIUM 40 MG/0.4 ML DISP.SYRIN SQ SCH (20:37)
[2018-12-05] MEDS: POLYETHYLENE GLYCOL 3350 17 GM POWD.PACK GT SCH (21:20)
[2018-12-05] MEDS: ATORVASTATIN 10 MG TABLET GT SCH (21:20)
[2018-12-06] MEDS: HYDROCODONE/APAP 10/325MG 1 EA TABLET PO PRN (01:07)
[2018-12-06] MEDS: IPRATROPIUM NEB FS 0.5 MG/2.5 ML AMPUL.NEB NEB SCH ×4 (01:22→20:00)
[2018-12-06] MEDS: SUCRALFATE 1 G/10 ML UDC GT SCH ×4 (05:58→20:39)
[2018-12-06 07:45] VITALS: BP 126/70
[2018-12-06] MEDS: HYDROGEN PEROXIDE 480 ML BOTTLE TP SCH ×2 (08:12→20:40)
[2018-12-06] MEDS: METHADONE HCL 10 MG TABLET GT SCH ×2 (08:24→17:00)
[2018-12-06] MEDS: ACIDOPHILUS/BULGARICUS 1 EACH TAB.CHEW GT SCH ×3 (08:24→17:02)
[2018-12-06] MEDS: ESCITALOPRAM OXALATE (10 MG) 10 MG TABLET GT SCH (08:24)
[2018-12-06] MEDS: BACLOFEN (10 MG) 10 MG TABLET GT SCH ×4 (08:24→20:39)
[2018-12-06] MEDS: GABAPENTIN 250 MG/5 ML GT SCH ×3 (08:24→17:02)
[2018-12-06] MEDS: PROSTAT (PYXIS) 30 ML UDC GT SCH ×3 (08:25→17:02)
[2018-12-06] MEDS: ASCORBIC ACID 500 MG TABLET GT SCH ×2 (08:25→17:02)
[2018-12-06] MEDS: CALCIUM CARBONATE 500 MG TAB.CHEW GT SCH ×3 (08:25→17:02)
[2018-12-06] MEDS: FAMOTIDINE (20 MG) 20 MG TABLET GT SCH ×2 (08:25→20:39)
[2018-12-06] MEDS: CALCITRIOL 0.25 MCG CAPSULE PO SCH (08:25)
[2018-12-06] MEDS: MULTIVIT W/MINERALS 1 TAB TABLET GT SCH (08:25)
[2018-12-06] MEDS: HYDROCODONE/APAP 5/325MG 1 EACH TABLET GT SCH ×2 (10:49→20:39)
[2018-12-06] MEDS: BACI/NEOM/POLY B OINT PKT 1 UDPKT PACKET TP SCH ×2 (11:30→20:40)
[2018-12-06] MEDS: NYSTATIN/TRIAMCIN 15 GM CREAM 15 GM TUBE TP SCH (11:30)
[2018-12-06] MEDS: THERAHONEY GEL 1.5 OZ TUBE TP SCH ×6 (11:30→20:40)
[2018-12-06 20:03] VITALS: BP 99/62
--- NOTE | 2018-12-06 20:28 | NUR ---
Seen and examined by CARLI Hoffman new orders for CMP,Albumin,PTH and Vitamin D level for hypercalcemia.Will carry out orders.
[2018-12-06] MEDS: ZINC SULFATE 220 MG CAPSULE GT SCH (20:39)
[2018-12-06] MEDS: ENOXAPARIN SODIUM 40 MG/0.4 ML DISP.SYRIN SQ SCH (20:40)
[2018-12-06] MEDS: POLYETHYLENE GLYCOL 3350 17 GM POWD.PACK GT SCH (21:32)
[2018-12-06] MEDS: ATORVASTATIN 10 MG TABLET GT SCH (21:32)
--- NOTE | 2018-12-07 00:07 | NUR ---
Pt rec'd trached on CA aerosol @ 28% fio2. [facility]. No resp distress or sob noted. trach is patent and secured. Alarms are set and audible. Vent plugged into red outlet. Ambu bag bedside. Will continue to monitor Addendum: 12/07/18 at 0009 by CAITLIN SOTO RT Amended: Links added.
[2018-12-07] MEDS: IPRATROPIUM NEB FS 0.5 MG/2.5 ML AMPUL.NEB NEB SCH ×4 (01:44→19:32)
[2018-12-07] MEDS: SUCRALFATE 1 G/10 ML UDC GT SCH ×4 (05:37→20:20)
[2018-12-07 08:00] VITALS: BP 118/72
[2018-12-07] MEDS: ESCITALOPRAM OXALATE (10 MG) 10 MG TABLET GT SCH (09:04)
[2018-12-07] MEDS: GABAPENTIN 250 MG/5 ML GT SCH ×3 (09:04→17:06)
[2018-12-07] MEDS: ACIDOPHILUS/BULGARICUS 1 EACH TAB.CHEW GT SCH ×3 (09:04→17:06)
[2018-12-07] MEDS: BACLOFEN (10 MG) 10 MG TABLET GT SCH ×4 (09:04→20:20)
[2018-12-07] MEDS: METHADONE HCL 10 MG TABLET GT SCH ×2 (09:05→17:07)
[2018-12-07] MEDS: CALCITRIOL 0.25 MCG CAPSULE PO SCH (09:05)
[2018-12-07] MEDS: PROSTAT (PYXIS) 30 ML UDC GT SCH ×3 (09:05→17:07)
[2018-12-07] MEDS: FAMOTIDINE (20 MG) 20 MG TABLET GT SCH ×2 (09:05→20:20)
[2018-12-07] MEDS: ASCORBIC ACID 500 MG TABLET GT SCH ×2 (09:05→17:07)
[2018-12-07] MEDS: CALCIUM CARBONATE 500 MG TAB.CHEW GT SCH ×3 (09:05→17:07)
[2018-12-07] MEDS: MULTIVIT W/MINERALS 1 TAB TABLET GT SCH (09:05)
[2018-12-07] MEDS: HYDROGEN PEROXIDE 480 ML BOTTLE TP SCH ×2 (09:12→19:32)
[2018-12-07] MEDS: HYDROCODONE/APAP 5/325MG 1 EACH TABLET GT SCH ×2 (10:45→20:20)
[2018-12-07] MEDS: BACI/NEOM/POLY B OINT PKT 1 UDPKT PACKET TP SCH (11:25)
[2018-12-07] MEDS: THERAHONEY GEL 1.5 OZ TUBE TP SCH ×6 (11:25→20:22)
--- NOTE | 2018-12-07 17:09 | NUR ---
receive pt stable on 28% CA, alarms are on and audible, spare trach and ambu bag is at bedside. All tx given and tolerated well, no adverse reaction observe. Addendum: 12/07/18 at 1711 by YESICA CHEW RT Amended: Links added.
--- NOTE | 2018-12-07 19:43 | NUR ---
RT NOTE: RECEIVED TRACH PT ON COOL AEROSOL. WILL PLACE PT ON VENT AT MIDNIGHT PER MD ORDER. TRACH IS PATENT AND SECURED. TRACH CARE DONE. GRADE TAMPER DONE. Q6 BREATHING TX GIVEN WITH NO ADVERSE REACTION NOTED. SX DONE PRN. NO RESP DISTRESS AT THIS TIME. WILL CONT TO MONITOR PT. Addendum: 12/08/18 at 0515 by SOBIA VILLA RT Amended: Links added.
[2018-12-07 20:15] VITALS: BP 121/73
[2018-12-07] MEDS: ZINC SULFATE 220 MG CAPSULE GT SCH (20:20)
[2018-12-07] MEDS: ENOXAPARIN SODIUM 40 MG/0.4 ML DISP.SYRIN SQ SCH (20:21)
[2018-12-07] MEDS: POLYETHYLENE GLYCOL 3350 17 GM POWD.PACK GT SCH (21:13)
[2018-12-07] MEDS: ATORVASTATIN 10 MG TABLET GT SCH (21:13)
[2018-12-07] MEDS: HYDROCODONE/APAP 10/325MG 1 EA TABLET PO PRN (23:44)
[2018-12-08] MEDS: IPRATROPIUM NEB FS 0.5 MG/2.5 ML AMPUL.NEB NEB SCH ×4 (01:37→20:15)
[2018-12-08] MEDS: METHOCARBAMOL (750MG) 750 MG TABLET GT PRN (05:33)
[2018-12-08] MEDS: SUCRALFATE 1 G/10 ML UDC GT SCH ×4 (05:33→20:44)
[2018-12-08] MEDS: ACETAMINOPHEN 650 MG/20 ML UDC- SA PATIENTS-PAIN ONLY GT PRN (05:34)
[2018-12-08 07:38] VITALS: BP 122/69
[2018-12-08] MEDS: HYDROGEN PEROXIDE 480 ML BOTTLE TP SCH ×2 (09:00→20:16)
[2018-12-08] MEDS: METHADONE HCL 10 MG TABLET GT SCH ×2 (09:19→20:56)
[2018-12-08] MEDS: ASCORBIC ACID 500 MG TABLET GT SCH ×2 (09:23→17:16)
[2018-12-08] MEDS: ESCITALOPRAM OXALATE (10 MG) 10 MG TABLET GT SCH (09:23)
[2018-12-08] MEDS: ACIDOPHILUS/BULGARICUS 1 EACH TAB.CHEW GT SCH ×3 (09:23→17:16)
[2018-12-08] MEDS: PROSTAT (PYXIS) 30 ML UDC GT SCH ×3 (09:23→17:16)
[2018-12-08] MEDS: MULTIVIT W/MINERALS 1 TAB TABLET GT SCH (09:23)
[2018-12-08] MEDS: GABAPENTIN 250 MG/5 ML GT SCH ×3 (09:23→17:16)
[2018-12-08] MEDS: FAMOTIDINE (20 MG) 20 MG TABLET GT SCH ×2 (09:23→20:58)
[2018-12-08] MEDS: CALCITRIOL 0.25 MCG CAPSULE PO SCH (09:23)
[2018-12-08] MEDS: BACLOFEN (10 MG) 10 MG TABLET GT SCH ×4 (09:23→20:56)
[2018-12-08] MEDS: CALCIUM CARBONATE 500 MG TAB.CHEW GT SCH ×3 (09:23→17:16)
[2018-12-08] MEDS: HYDROCODONE/APAP 5/325MG 1 EACH TABLET GT SCH ×2 (10:30→21:52)
[2018-12-08] MEDS: THERAHONEY GEL 1.5 OZ TUBE TP SCH ×6 (11:10→20:59)
[2018-12-08 20:05] VITALS: BP 108/72
[2018-12-08] MEDS: ZINC SULFATE 220 MG CAPSULE GT SCH (20:58)
[2018-12-08] MEDS: POLYETHYLENE GLYCOL 3350 17 GM POWD.PACK GT SCH (21:00)
[2018-12-08] MEDS: ATORVASTATIN 10 MG TABLET GT SCH (21:00)
[2018-12-08] MEDS: ENOXAPARIN SODIUM 40 MG/0.4 ML DISP.SYRIN SQ SCH (21:01)
[2018-12-09] MEDS: IPRATROPIUM NEB FS 0.5 MG/2.5 ML AMPUL.NEB NEB SCH ×4 (01:44→20:28)
--- NOTE | 2018-12-09 03:55 | NUR ---
RT NOTE RECEIVED PT ON C/A WITH THE NOTED CONDITION. PT TERRANCE. VENT AND INLINE NEB TX WELL. WILL CONTINUE WILL THE CURRENT RESP. PLAN OF CARE. Addendum: 12/09/18 at 0357 by RAPHAEL REID RT Amended: Links added.
[2018-12-09] MEDS: SUCRALFATE 1 G/10 ML UDC GT SCH ×4 (05:32→21:24)
[2018-12-09 08:08] VITALS: BP 109/63
[2018-12-09] MEDS: METHADONE HCL 10 MG TABLET GT SCH ×2 (08:29→21:26)
[2018-12-09] MEDS: GABAPENTIN 250 MG/5 ML GT SCH ×3 (08:31→16:42)
[2018-12-09] MEDS: ESCITALOPRAM OXALATE (10 MG) 10 MG TABLET GT SCH (08:32)
[2018-12-09] MEDS: PROSTAT (PYXIS) 30 ML UDC GT SCH ×3 (08:32→16:43)
[2018-12-09] MEDS: FAMOTIDINE (20 MG) 20 MG TABLET GT SCH ×2 (08:32→21:27)
[2018-12-09] MEDS: CALCITRIOL 0.25 MCG CAPSULE PO SCH (08:32)
[2018-12-09] MEDS: BACLOFEN (10 MG) 10 MG TABLET GT SCH ×4 (08:32→21:24)
[2018-12-09] MEDS: MULTIVIT W/MINERALS 1 TAB TABLET GT SCH (08:32)
[2018-12-09] MEDS: CALCIUM CARBONATE 500 MG TAB.CHEW GT SCH ×3 (08:32→16:43)
[2018-12-09] MEDS: ACIDOPHILUS/BULGARICUS 1 EACH TAB.CHEW GT SCH ×3 (08:32→16:43)
[2018-12-09] MEDS: ASCORBIC ACID 500 MG TABLET GT SCH ×2 (08:32→16:43)
[2018-12-09] MEDS: HYDROGEN PEROXIDE 480 ML BOTTLE TP SCH ×2 (09:00→20:28)
--- NOTE | 2018-12-09 09:50 | NUR ---
Seen and examined by Dr. Seaman, no new order given.
[2018-12-09] MEDS: HYDROCODONE/APAP 5/325MG 1 EACH TABLET GT SCH ×2 (10:30→21:27)
[2018-12-09] MEDS: THERAHONEY GEL 1.5 OZ TUBE TP SCH ×6 (11:10→21:29)
[2018-12-09 20:26] VITALS: BP 111/65
[2018-12-09] MEDS: ZINC SULFATE 220 MG CAPSULE GT SCH (21:27)
[2018-12-09] MEDS: ENOXAPARIN SODIUM 40 MG/0.4 ML DISP.SYRIN SQ SCH (21:28)
[2018-12-09] MEDS: POLYETHYLENE GLYCOL 3350 17 GM POWD.PACK GT SCH (21:29)
[2018-12-09] MEDS: ATORVASTATIN 10 MG TABLET GT SCH (21:29)
[2018-12-10] MEDS: IPRATROPIUM NEB FS 0.5 MG/2.5 ML AMPUL.NEB NEB SCH ×4 (00:32→19:19)
[2018-12-10] MEDS: SUCRALFATE 1 G/10 ML UDC GT SCH ×4 (05:45→21:29)
[2018-12-10 07:45] LABS: ALBUMIN 2.6 g/dL (3.4-5.0); BILIRUBIN,TOTAL 0.2 mg/dL (0.2-1.0); CALCIUM, SERUM 8.9 mg/dL (8.5-10.1); CREATININE 0.7 mg/dL (0.6-1.3); POTASSIUM 4.3 mmol/L (3.5-5.1)
[2018-12-10 09:06] VITALS: BP 127/69
[2018-12-10] MEDS: BACLOFEN (10 MG) 10 MG TABLET GT SCH ×4 (09:47→21:30)
[2018-12-10] MEDS: PROSTAT (PYXIS) 30 ML UDC GT SCH ×3 (09:47→17:47)
[2018-12-10] MEDS: MULTIVIT W/MINERALS 1 TAB TABLET GT SCH (09:47)
[2018-12-10] MEDS: ACIDOPHILUS/BULGARICUS 1 EACH TAB.CHEW GT SCH ×3 (09:47→17:47)
[2018-12-10] MEDS: ASCORBIC ACID 500 MG TABLET GT SCH ×2 (09:47→17:47)
[2018-12-10] MEDS: CALCITRIOL 0.25 MCG CAPSULE PO SCH (09:47)
[2018-12-10] MEDS: FAMOTIDINE (20 MG) 20 MG TABLET GT SCH ×2 (09:47→21:33)
[2018-12-10] MEDS: CALCIUM CARBONATE 500 MG TAB.CHEW GT SCH ×3 (09:47→17:47)
[2018-12-10] MEDS: ESCITALOPRAM OXALATE (10 MG) 10 MG TABLET GT SCH (09:47)
[2018-12-10] MEDS: METHADONE HCL 10 MG TABLET GT SCH ×2 (09:47→21:32)
[2018-12-10] MEDS: GABAPENTIN 250 MG/5 ML GT SCH ×3 (09:47→17:47)
[2018-12-10] MEDS: HYDROCODONE/APAP 5/325MG 1 EACH TABLET GT SCH ×2 (10:50→23:00)
[2018-12-10] MEDS: THERAHONEY GEL 1.5 OZ TUBE TP SCH ×6 (11:30→21:33)
[2018-12-10] MEDS: HYDROGEN PEROXIDE 480 ML BOTTLE TP SCH ×2 (11:30→21:13)
--- NOTE | 2018-12-10 16:16 | NUR ---
Family invitation to IDT:RAVI communicated to pt.'s family that the Interdisciplinary Plan of Care Conference will be taking place this 12/14/18 from 12:30-1:30 pm in the activities room and invited family to attend or participate via phone conference. Patients sister Vilma, stated that she would be in attendance. Noted.
[2018-12-10 20:38] VITALS: BP 102/69
[2018-12-10] MEDS: ENOXAPARIN SODIUM 40 MG/0.4 ML DISP.SYRIN SQ SCH (21:32)
[2018-12-10] MEDS: ZINC SULFATE 220 MG CAPSULE GT SCH (21:33)
[2018-12-10] MEDS: ATORVASTATIN 10 MG TABLET GT SCH (21:33)
[2018-12-10] MEDS: POLYETHYLENE GLYCOL 3350 17 GM POWD.PACK GT SCH (21:34)
[2018-12-11] MEDS: IPRATROPIUM NEB FS 0.5 MG/2.5 ML AMPUL.NEB NEB SCH ×4 (01:29→19:51)
[2018-12-11] MEDS: SUCRALFATE 1 G/10 ML UDC GT SCH ×4 (05:53→20:30)
[2018-12-11] MEDS: PROSTAT (PYXIS) 30 ML UDC GT SCH ×3 (09:00→16:23)
[2018-12-11] MEDS: ASCORBIC ACID 500 MG TABLET GT SCH ×2 (09:00→16:23)
[2018-12-11] MEDS: BACLOFEN (10 MG) 10 MG TABLET GT SCH ×4 (09:00→21:39)
[2018-12-11] MEDS: HYDROCODONE/APAP 5/325MG 1 EACH TABLET GT SCH ×2 (09:00→23:00)
[2018-12-11] MEDS: MULTIVIT W/MINERALS 1 TAB TABLET GT SCH (09:00)
[2018-12-11] MEDS: GABAPENTIN 250 MG/5 ML GT SCH ×3 (09:00→16:23)
[2018-12-11] MEDS: ACIDOPHILUS/BULGARICUS 1 EACH TAB.CHEW GT SCH ×3 (09:00→16:23)
[2018-12-11] MEDS: ESCITALOPRAM OXALATE (10 MG) 10 MG TABLET GT SCH (09:00)
[2018-12-11] MEDS: HYDROGEN PEROXIDE 480 ML BOTTLE TP SCH ×2 (09:00→21:00)
[2018-12-11] MEDS: METHADONE HCL 10 MG TABLET GT SCH ×2 (09:00→21:41)
[2018-12-11] MEDS: CALCIUM CARBONATE 500 MG TAB.CHEW GT SCH ×3 (09:00→16:23)
[2018-12-11] MEDS: THERAHONEY GEL 1.5 OZ TUBE TP SCH ×6 (09:00→21:43)
[2018-12-11] MEDS: FAMOTIDINE (20 MG) 20 MG TABLET GT SCH ×2 (09:00→21:42)
[2018-12-11] MEDS: CALCITRIOL 0.25 MCG CAPSULE PO SCH (09:00)
[2018-12-11 10:55] VITALS: BP 129/72
[2018-12-11 20:10] VITALS: BP 105/65
[2018-12-11] MEDS: ZINC SULFATE 220 MG CAPSULE GT SCH (21:42)
[2018-12-11] MEDS: ATORVASTATIN 10 MG TABLET GT SCH (21:43)
[2018-12-11] MEDS: POLYETHYLENE GLYCOL 3350 17 GM POWD.PACK GT SCH (21:43)
[2018-12-11] MEDS: ENOXAPARIN SODIUM 40 MG/0.4 ML DISP.SYRIN SQ SCH (21:43)
[2018-12-12] MEDS: IPRATROPIUM NEB FS 0.5 MG/2.5 ML AMPUL.NEB NEB SCH ×4 (02:02→20:33)
[2018-12-12] MEDS: SUCRALFATE 1 G/10 ML UDC GT SCH ×4 (05:29→21:00)
[2018-12-12 07:36] VITALS: BP 134/72
[2018-12-12] MEDS: HYDROGEN PEROXIDE 480 ML BOTTLE TP SCH ×2 (08:10→21:00)
[2018-12-12] MEDS: ACIDOPHILUS/BULGARICUS 1 EACH TAB.CHEW GT SCH ×3 (08:24→16:57)
[2018-12-12] MEDS: BACLOFEN (10 MG) 10 MG TABLET GT SCH ×4 (08:24→21:30)
[2018-12-12] MEDS: GABAPENTIN 250 MG/5 ML GT SCH ×3 (08:24→16:57)
[2018-12-12] MEDS: ESCITALOPRAM OXALATE (10 MG) 10 MG TABLET GT SCH (08:24)
[2018-12-12] MEDS: MULTIVIT W/MINERALS 1 TAB TABLET GT SCH (08:25)
[2018-12-12] MEDS: ASCORBIC ACID 500 MG TABLET GT SCH ×2 (08:25→16:57)
[2018-12-12] MEDS: FAMOTIDINE (20 MG) 20 MG TABLET GT SCH ×2 (08:25→21:30)
[2018-12-12] MEDS: CALCIUM CARBONATE 500 MG TAB.CHEW GT SCH ×3 (08:25→16:57)
[2018-12-12] MEDS: PROSTAT (PYXIS) 30 ML UDC GT SCH ×3 (08:25→16:57)
[2018-12-12] MEDS: CALCITRIOL 0.25 MCG CAPSULE PO SCH (08:25)
[2018-12-12] MEDS: METHADONE HCL 10 MG TABLET GT SCH ×2 (08:34→22:00)
[2018-12-12] MEDS: HYDROCODONE/APAP 5/325MG 1 EACH TABLET GT SCH ×2 (09:00→21:00)
[2018-12-12] MEDS: THERAHONEY GEL 1.5 OZ TUBE TP SCH ×6 (09:30→22:00)
--- NOTE | 2018-12-12 12:37 | NUR ---
SW made various attempts to reach [facility] [phone] to correct that the patients residence in attempts to get coverage for medication needed for pt. Currently the pt.s insurance is declining to cover the medication because the patient shows to be living at [facility] [phone] on their records. However, the pt. in fact, resides at [facility]. Upon RAVI calling [facility] at [phone], there is a message, The constitution party you are trying to reach is not available, please try again later with no option to speak to anyone or leave a voicemail. SA Director informed.
--- NOTE | 2018-12-12 12:45 | NUR ---
RAVI received a call from Paula EXT#[phone] at [facility] business office stating that she spoke to Medicare Reference # [id number] and they informed Paula that they do not have the ability to change the pt.'s address on file and stated advised that [facility] [phone] be called as they might be able to help. RAVI contacted the [facility] [phone] and spoke with Magda ID#[id number] who stated that they also do not have the ability to change the pt.s address on file and advised that SW contact the Social Security Office. RAVI will follow up.
--- NOTE | 2018-12-12 16:15 | NUR ---
SW called the Social Security Office [[address] [place] [address] tel: ] to change the resident's address. See previous SS notes for further details. RAVI was informed by automated system that the wait time to speak to a branch service representative was 1 hour. However, SW will call back tomorrow as SW will be not be available in 1 hour.
[2018-12-12 20:17] VITALS: BP 109/69
[2018-12-12] MEDS: ENOXAPARIN SODIUM 40 MG/0.4 ML DISP.SYRIN SQ SCH (21:30)
[2018-12-12] MEDS: ZINC SULFATE 220 MG CAPSULE GT SCH (21:30)
[2018-12-12] MEDS: POLYETHYLENE GLYCOL 3350 17 GM POWD.PACK GT SCH (22:09)
[2018-12-12] MEDS: ATORVASTATIN 10 MG TABLET GT SCH (22:09)
--- NOTE | 2018-12-13 00:40 | NUR ---
Pt rec'd trached on cool aerosol @ 28% FiO2. Pt placed on mech vent on AC mode per MD orders @ 0005. No resp distress or sob noted. Trach is patent and secured. Sx'd for thick mod amt of pale yellow secretions. Alarms are set and audible. Vent plugged into red outlet. Ambu bag bedside. Will continue to monitor. Addendum: 12/13/18 at 0042 by CAITLIN SOTO RT Amended: Links added.
[2018-12-13] MEDS: IPRATROPIUM NEB FS 0.5 MG/2.5 ML AMPUL.NEB NEB SCH ×4 (02:22→19:33)
[2018-12-13] MEDS: MAGNESIUM HYDROXIDE 30 ML UDC GT PRN (05:35)
[2018-12-13] MEDS: SUCRALFATE 1 G/10 ML UDC GT SCH ×4 (05:35→20:54)
[2018-12-13 07:48] VITALS: BP 135/75
[2018-12-13 07:52] VITALS: BP 135/75
[2018-12-13] MEDS: HYDROGEN PEROXIDE 480 ML BOTTLE TP SCH ×2 (08:03→20:35)
[2018-12-13] MEDS: HYDROCODONE/APAP 5/325MG 1 EACH TABLET GT SCH ×2 (08:56→22:05)
[2018-12-13] MEDS: CALCITRIOL 0.25 MCG CAPSULE PO SCH (08:56)
[2018-12-13] MEDS: ASCORBIC ACID 500 MG TABLET GT SCH ×2 (08:56→17:32)
[2018-12-13] MEDS: ACIDOPHILUS/BULGARICUS 1 EACH TAB.CHEW GT SCH ×3 (08:56→17:32)
[2018-12-13] MEDS: FAMOTIDINE (20 MG) 20 MG TABLET GT SCH ×2 (08:56→20:56)
[2018-12-13] MEDS: PROSTAT (PYXIS) 30 ML UDC GT SCH ×3 (08:56→17:32)
[2018-12-13] MEDS: MULTIVIT W/MINERALS 1 TAB TABLET GT SCH (08:56)
[2018-12-13] MEDS: GABAPENTIN 250 MG/5 ML GT SCH ×3 (08:56→17:32)
[2018-12-13] MEDS: METHADONE HCL 10 MG TABLET GT SCH ×2 (08:56→20:56)
[2018-12-13] MEDS: CALCIUM CARBONATE 500 MG TAB.CHEW GT SCH ×3 (08:56→17:32)
[2018-12-13] MEDS: ESCITALOPRAM OXALATE (10 MG) 10 MG TABLET GT SCH (08:56)
[2018-12-13] MEDS: BACLOFEN (10 MG) 10 MG TABLET GT SCH ×4 (08:56→20:54)
[2018-12-13] MEDS: THERAHONEY GEL 1.5 OZ TUBE TP SCH ×6 (09:30→22:30)
--- NOTE | 2018-12-13 12:22 | NUR ---
SW called [employer] T[employer]: to change patients address. The residents medication has been denied by the insurance due to incorrect information that the pt. allegedly resides in a hospice. Upon calling the automated system stated that there were no available representatives to take SWs call and to call back later and call was ended.
[2018-12-13] MEDS: HYDROCODONE/APAP 5/325MG 1 EACH TABLET GT PRN (17:33)
[2018-12-13 20:07] VITALS: BP 116/76
[2018-12-13] MEDS: ZINC SULFATE 220 MG CAPSULE GT SCH (20:56)
[2018-12-13] MEDS: ENOXAPARIN SODIUM 40 MG/0.4 ML DISP.SYRIN SQ SCH (20:57)
[2018-12-13] MEDS: POLYETHYLENE GLYCOL 3350 17 GM POWD.PACK GT SCH (21:59)
[2018-12-13] MEDS: ATORVASTATIN 10 MG TABLET GT SCH (21:59)
[2018-12-14] MEDS: IPRATROPIUM NEB FS 0.5 MG/2.5 ML AMPUL.NEB NEB SCH ×4 (01:27→19:19)
[2018-12-14] MEDS: SUCRALFATE 1 G/10 ML UDC GT SCH ×4 (05:37→21:17)
[2018-12-14 07:36] VITALS: BP 111/63
[2018-12-14] MEDS: HYDROGEN PEROXIDE 480 ML BOTTLE TP SCH ×2 (07:53→21:05)
[2018-12-14] MEDS: METHADONE HCL 10 MG TABLET GT SCH ×2 (09:52→22:30)
[2018-12-14] MEDS: GABAPENTIN 250 MG/5 ML GT SCH ×3 (09:52→17:46)
[2018-12-14] MEDS: ESCITALOPRAM OXALATE (10 MG) 10 MG TABLET GT SCH (09:52)
[2018-12-14] MEDS: BACLOFEN (10 MG) 10 MG TABLET GT SCH ×4 (09:52→21:17)
[2018-12-14] MEDS: ACIDOPHILUS/BULGARICUS 1 EACH TAB.CHEW GT SCH ×3 (09:52→17:46)
[2018-12-14] MEDS: CALCITRIOL 0.25 MCG CAPSULE PO SCH (09:53)
[2018-12-14] MEDS: ASCORBIC ACID 500 MG TABLET GT SCH ×2 (09:53→17:46)
[2018-12-14] MEDS: MULTIVIT W/MINERALS 1 TAB TABLET GT SCH (09:53)
[2018-12-14] MEDS: HYDROCODONE/APAP 5/325MG 1 EACH TABLET GT SCH ×2 (09:53→21:18)
[2018-12-14] MEDS: PROSTAT (PYXIS) 30 ML UDC GT SCH ×3 (09:53→17:46)
[2018-12-14] MEDS: FAMOTIDINE (20 MG) 20 MG TABLET GT SCH ×2 (09:53→21:18)
[2018-12-14] MEDS: CALCIUM CARBONATE 500 MG TAB.CHEW GT SCH ×3 (09:53→17:46)
--- NOTE | 2018-12-14 09:54 | NUR ---
RAVI contacted Medicare [phone] and spoke to Jeremy in an attempt to get the patients medication approved. Inquiry # [id number]. Per Jeremy, the there is no number for Medicare part D. Jeremy suggested the pharmacy be contacted and determine if family incorrectly chose hospice as the pt.s residence status. RAVI contacted [employer] plan noted on the Non-Covered Medication Notification and spoke to Ree to change the address that they have on file in hopes that the medication will be approved. Per Ree, she believes that once she changes the address on the [employer] system, the medication should be approved. Per Ree, the change of address might take a day or two to reflect on the system and should wait to have [facility] resend verification to Insurance. RAVI will follow up with [facility] [phone] om 12/17/18.
[2018-12-14] MEDS: THERAHONEY GEL 1.5 OZ TUBE TP SCH ×6 (10:30→21:19)
--- NOTE | 2018-12-14 15:31 | NUR ---
INTERDISCIPLINARY PLAN OF CARE CONFERENCE took place today. The patients responsible green party/Vilma Marley [phone] was in attendance. The IDT answered the familys questions. Charge nurse discussed sacral wound treatment, Triple antibiotic treatment for R 3rd Toe. Dr. Ugarte and Interdisciplinary team discussed the plan of care in detail. Current orders as well as treatments and medications were reviewed. Please see other disciplines IDT notes for further details.
--- NOTE | 2018-12-14 16:41 | NUR ---
RT NOTE: RECEIVED PT ON 28% COOL AEROSOL. NO RESPIRATORY DISTRESS NOTED. TRACH CHECKED SECURE AND PATENT. SXD AND LAVAGED PT Q ROUND AND NEEDED. TXS GIVEN ORDERED WITH NO ADVERSE REACTIONS NOTED. TRACH CARE DONE. SPARE TRACH AND AMBU BAG @ BEDSIDE. NOC VENT @ BEDSIDE PLUGGED INTO RED OUTLET.
--- NOTE | 2018-12-14 19:50 | NUR ---
Seen and examined by Dr. Seaman with new order to change Nephrostomy tube by intervention radiology on Monday.Will follow with radiology in AM regarding instructions.Will endorsed.
[2018-12-14 20:50] VITALS: BP 110/67
[2018-12-14] MEDS: ZINC SULFATE 220 MG CAPSULE GT SCH (21:18)
[2018-12-14] MEDS: ENOXAPARIN SODIUM 40 MG/0.4 ML DISP.SYRIN SQ SCH (21:18)
[2018-12-14] MEDS: ATORVASTATIN 10 MG TABLET GT SCH (21:19)
[2018-12-14] MEDS: POLYETHYLENE GLYCOL 3350 17 GM POWD.PACK GT SCH (21:19)
[2018-12-15] MEDS: IPRATROPIUM NEB FS 0.5 MG/2.5 ML AMPUL.NEB NEB SCH ×4 (01:25→19:56)
[2018-12-15] MEDS: SUCRALFATE 1 G/10 ML UDC GT SCH ×4 (05:46→21:22)
--- NOTE | 2018-12-15 06:23 | NUR ---
RT Patient was received on 28% cool aerosol.Placed patient on vent during midnight and back to cool aerosol at 0600 per MD order.Patient stable throughout the shift. Trach is patent and secured.Will continue to monitor. Addendum: 12/15/18 at 0624 by ROM ARAIZA RT Amended: Links added.
[2018-12-15] MEDS: HYDROGEN PEROXIDE 480 ML BOTTLE TP SCH ×2 (07:17→21:00)
[2018-12-15 07:22] VITALS: BP 117/66
[2018-12-15] MEDS: GABAPENTIN 250 MG/5 ML GT SCH ×3 (09:40→17:31)
[2018-12-15] MEDS: METHADONE HCL 10 MG TABLET GT SCH ×2 (09:40→22:30)
[2018-12-15] MEDS: BACLOFEN (10 MG) 10 MG TABLET GT SCH ×4 (09:40→21:22)
[2018-12-15] MEDS: ACIDOPHILUS/BULGARICUS 1 EACH TAB.CHEW GT SCH ×3 (09:40→17:31)
[2018-12-15] MEDS: ESCITALOPRAM OXALATE (10 MG) 10 MG TABLET GT SCH (09:40)
[2018-12-15] MEDS: FAMOTIDINE (20 MG) 20 MG TABLET GT SCH ×2 (09:41→21:22)
[2018-12-15] MEDS: HYDROCODONE/APAP 5/325MG 1 EACH TABLET GT SCH ×2 (09:41→21:22)
[2018-12-15] MEDS: MULTIVIT W/MINERALS 1 TAB TABLET GT SCH (09:41)
[2018-12-15] MEDS: CALCITRIOL 0.25 MCG CAPSULE PO SCH (09:41)
[2018-12-15] MEDS: ASCORBIC ACID 500 MG TABLET GT SCH ×2 (09:41→17:31)
[2018-12-15] MEDS: CALCIUM CARBONATE 500 MG TAB.CHEW GT SCH ×3 (09:41→17:31)
[2018-12-15] MEDS: PROSTAT (PYXIS) 30 ML UDC GT SCH ×3 (09:41→17:31)
[2018-12-15] MEDS: THERAHONEY GEL 1.5 OZ TUBE TP SCH ×6 (10:10→21:00)
[2018-12-15 20:48] VITALS: BP 109/67
[2018-12-15] MEDS: NYSTATIN/TRIAMCIN 15 GM CREAM 15 GM TUBE TP SCH (21:00)
[2018-12-15] MEDS: ZINC SULFATE 220 MG CAPSULE GT SCH (21:22)
[2018-12-15] MEDS: ENOXAPARIN SODIUM 40 MG/0.4 ML DISP.SYRIN SQ SCH (21:23)
[2018-12-15] MEDS: ATORVASTATIN 10 MG TABLET GT SCH (21:24)
[2018-12-15] MEDS: POLYETHYLENE GLYCOL 3350 17 GM POWD.PACK GT SCH (21:24)
--- NOTE | 2018-12-16 01:21 | NUR ---
Pt receive stable on CA 28% FiO2 , alarms are on and audible, spare trach and ambu bag is at bedside, pt place on MV at [phone] , will continue to monitor Addendum: 12/16/18 at 0123 by YESICA CHEW RT Amended: Links added.
[2018-12-16] MEDS: IPRATROPIUM NEB FS 0.5 MG/2.5 ML AMPUL.NEB NEB SCH ×4 (01:38→19:23)
[2018-12-16] MEDS: SUCRALFATE 1 G/10 ML UDC GT SCH ×4 (05:58→20:25)
[2018-12-16 07:48] VITALS: BP 113/64
[2018-12-16] MEDS: BACLOFEN (10 MG) 10 MG TABLET GT SCH ×4 (08:42→20:25)
[2018-12-16] MEDS: GABAPENTIN 250 MG/5 ML GT SCH ×3 (08:42→16:56)
[2018-12-16] MEDS: ACIDOPHILUS/BULGARICUS 1 EACH TAB.CHEW GT SCH ×3 (08:42→16:56)
[2018-12-16] MEDS: ESCITALOPRAM OXALATE (10 MG) 10 MG TABLET GT SCH (08:42)
[2018-12-16] MEDS: METHADONE HCL 10 MG TABLET GT SCH ×2 (08:42→20:31)
[2018-12-16] MEDS: CALCIUM CARBONATE 500 MG TAB.CHEW GT SCH ×3 (08:43→16:56)
[2018-12-16] MEDS: PROSTAT (PYXIS) 30 ML UDC GT SCH ×3 (08:43→16:56)
[2018-12-16] MEDS: FAMOTIDINE (20 MG) 20 MG TABLET GT SCH ×2 (08:43→20:32)
[2018-12-16] MEDS: ASCORBIC ACID 500 MG TABLET GT SCH ×2 (08:43→16:56)
[2018-12-16] MEDS: CALCITRIOL 0.25 MCG CAPSULE PO SCH (08:43)
[2018-12-16] MEDS: MULTIVIT W/MINERALS 1 TAB TABLET GT SCH (08:43)
--- NOTE | 2018-12-16 09:42 | NUR ---
Received a new order per Dr. Seaman, to hold lovenox injection 40mg sq daily at 2100 due to nephrostomy tube being change on 12/17/18, order carried out and responsible constitution party made aware.
[2018-12-16] MEDS: HYDROCODONE/APAP 5/325MG 1 EACH TABLET GT SCH ×2 (10:30→20:32)
[2018-12-16] MEDS: NYSTATIN/TRIAMCIN 15 GM CREAM 15 GM TUBE TP SCH ×2 (11:00→20:32)
[2018-12-16] MEDS: THERAHONEY GEL 1.5 OZ TUBE TP SCH ×6 (11:00→20:32)
[2018-12-16] MEDS: HYDROGEN PEROXIDE 480 ML BOTTLE TP SCH ×2 (11:00→21:34)
--- NOTE | 2018-12-16 11:14 | NUR ---
Spoke to responsible alliance party Vilma regarding consents for nephrostomy tube. Telephone consent was obtained with 2 license nurses, spoke to radiology department regarding any special instructions prior to procedure, no anticoagulants, & NPO for 12 hrs, lovenox will be on hold, and patient will be NPO, orders carried out and responsible alliance party made aware.
[2018-12-16 19:45] VITALS: BP 107/66
[2018-12-16] MEDS: IV 1/2NS 1000 ML 1,000 ML IV PRN (20:00)
--- NOTE | 2018-12-16 20:00 | NUR ---
RN NOTES Placed pt NPO and on 0.45% NS @80ml/hr as ordered.
[2018-12-16] MEDS: ZINC SULFATE 220 MG CAPSULE GT SCH (20:32)
[2018-12-16] MEDS: ATORVASTATIN 10 MG TABLET GT SCH (21:12)
[2018-12-16] MEDS: POLYETHYLENE GLYCOL 3350 17 GM POWD.PACK GT SCH (21:12)
[2018-12-17] MEDS: IPRATROPIUM NEB FS 0.5 MG/2.5 ML AMPUL.NEB NEB SCH ×4 (01:38→20:02)
[2018-12-17] MEDS: SUCRALFATE 1 G/10 ML UDC GT SCH ×4 (06:02→20:58)
[2018-12-17] MEDS: HYDROGEN PEROXIDE 480 ML BOTTLE TP SCH ×2 (09:00→20:02)
[2018-12-17] MEDS: GABAPENTIN 250 MG/5 ML GT SCH ×3 (09:04→16:47)
[2018-12-17] MEDS: FAMOTIDINE (20 MG) 20 MG TABLET GT SCH ×2 (09:04→20:59)
[2018-12-17] MEDS: PROSTAT (PYXIS) 30 ML UDC GT SCH ×3 (09:04→16:47)
[2018-12-17] MEDS: MULTIVIT W/MINERALS 1 TAB TABLET GT SCH (09:04)
[2018-12-17] MEDS: BACLOFEN (10 MG) 10 MG TABLET GT SCH ×4 (09:04→20:58)
[2018-12-17] MEDS: METHADONE HCL 10 MG TABLET GT SCH ×2 (09:04→20:58)
[2018-12-17] MEDS: ASCORBIC ACID 500 MG TABLET GT SCH ×2 (09:04→16:47)
[2018-12-17] MEDS: CALCIUM CARBONATE 500 MG TAB.CHEW GT SCH ×3 (09:04→16:47)
[2018-12-17] MEDS: CALCITRIOL 0.25 MCG CAPSULE PO SCH (09:04)
[2018-12-17] MEDS: ACIDOPHILUS/BULGARICUS 1 EACH TAB.CHEW GT SCH ×3 (09:04→16:47)
[2018-12-17] MEDS: ESCITALOPRAM OXALATE (10 MG) 10 MG TABLET GT SCH (09:04)
[2018-12-17 09:49] VITALS: BP 129/69
[2018-12-17] MEDS: HYDROCODONE/APAP 5/325MG 1 EACH TABLET GT SCH ×2 (11:30→20:59)
--- NOTE | 2018-12-17 11:30 | NUR ---
10 am-RAVI followed up and contacted [facility] [phone] and spoke to Taryn to ask that they resend verification for medication needed for pt. Hydrocone-Acetaminophen 5-325MG Tablet and Methadone. Taryn submitted verification to insurance and it stated pending. Per Taryn RODRIGUES should call back in 15 to see if it was approved. 11:30 am-RAVI called [facility] [phone] and spoke to Radha to verify if the patients medication was approved. Per Roxanna, it was cancelled again because their system is still stating that the patient resides in a non-contracted hospice. RAVI informed Radha that the pt. in fact, resides at [facility]. Per Radha, she corrected the patients address, in their system. Radha asked that RAVI fax insurance information to FAX: [phone]. Per Radha, she will inform [facility] billing department to work on correcting the issue.
[2018-12-17] MEDS: NYSTATIN/TRIAMCIN 15 GM CREAM 15 GM TUBE TP SCH ×2 (12:00→21:00)
[2018-12-17] MEDS: THERAHONEY GEL 1.5 OZ TUBE TP SCH ×6 (12:00→21:00)
--- NOTE | 2018-12-17 12:01 | NUR ---
RAVI emailed [facility] jewelry department supervisor, Ashli Agustin to fax current insurance information to [facility] FAX:[phone] ATTN: Radha.
--- NOTE | 2018-12-17 12:10 | NUR ---
Radiology called and said pt's nephrostomy tube placement will be done tomorrow instead of today. DC'd NPO for now until midnight. DC'd 02/21 NS for hydration for now as well. Addendum: 12/17/18 at 1211 by WINIFRED GARCÍA RN Notified Dr Seaman.
--- NOTE | 2018-12-17 13:54 | NUR ---
RAVI received a call from [facility] telephone service representative, Radha who stated that SW should call [facility] insurance plan to have them change the address. RAVI informed Maisha that RAVI has already communicated with [facility] and they changed the address. The changes may not be reflecting in their system just yet. RAVI will follow up with [facility] again on 12/19/18 and see if changes are reflected on the system by then.
[2018-12-17 20:40] VITALS: BP 100/59
[2018-12-17] MEDS: ZINC SULFATE 220 MG CAPSULE GT SCH (20:59)
[2018-12-17] MEDS: POLYETHYLENE GLYCOL 3350 17 GM POWD.PACK GT SCH (21:00)
[2018-12-17] MEDS: ATORVASTATIN 10 MG TABLET GT SCH (21:00)
--- NOTE | 2018-12-17 21:00 | NUR ---
RN NOTES Placed pt on NPO as ordered. Started 1/2 NS at 80ml/hr, as ordered.
--- NOTE | 2018-12-17 21:18 | NUR ---
Resident in bed connected to ventilator.Breathing even and unlabored.Tolerating vent settings well. Alert and oriented X3. Advised of NPO status. Resident acknowledged. Left with all needs met and call light within reach.Will remain NPO qshift.
[2018-12-17] MEDS: IV 1/2NS 1000 ML 1,000 ML IV PRN (21:20)
--- NOTE | 2018-12-17 23:00 | NUR ---
RN NOTES Noted IV hydration pump beeping. Unable to flush right hand peripheral line. Area does not look infiltrated, removed IV line. Inserted new IV line to left lower extremity, as ordered for poor venous access. Aseptic technique observed, secured well, patent with good blood return. Restarted IV hydration 1/2 NS at 80ml/hr.
[2018-12-18] MEDS: IPRATROPIUM NEB FS 0.5 MG/2.5 ML AMPUL.NEB NEB SCH ×4 (01:54→19:28)
--- NOTE | 2018-12-18 03:52 | NUR ---
RT NOTE Pt rec'd trached on cool aerosol at 28% Fio2. Pt placed on mech vent on AC mode per md orders. No resp distress or sob noted. Trach is patent and secured. Sx'd for thick mod amt of pale yellow secretions. Vent plugged into red outlet. Alarms are set and audible. Ambu bag bedside. Will continue to monitor. Addendum: 12/18/18 at 0353 by CAITLIN SOTO RT Amended: Links added.
[2018-12-18] MEDS: SUCRALFATE 1 G/10 ML UDC GT SCH ×4 (05:32→21:09)
[2018-12-18 08:20] VITALS: BP 110/63
[2018-12-18] MEDS: HYDROGEN PEROXIDE 480 ML BOTTLE TP SCH ×2 (09:00→20:55)
[2018-12-18] MEDS: ACIDOPHILUS/BULGARICUS 1 EACH TAB.CHEW GT SCH ×3 (09:00→17:40)
[2018-12-18] MEDS: ESCITALOPRAM OXALATE (10 MG) 10 MG TABLET GT SCH (09:00)
[2018-12-18] MEDS: PROSTAT (PYXIS) 30 ML UDC GT SCH ×3 (09:00→17:40)
[2018-12-18] MEDS: GABAPENTIN 250 MG/5 ML GT SCH ×3 (09:00→17:40)
[2018-12-18] MEDS: CALCITRIOL 0.25 MCG CAPSULE PO SCH (09:00)
[2018-12-18] MEDS: CALCIUM CARBONATE 500 MG TAB.CHEW GT SCH ×3 (09:00→17:40)
[2018-12-18] MEDS ORDERED: MIDAZOLAM HCL 5MG/ML VIAL 25 MG/5 ML VIAL IV ONE (09:00)
[2018-12-18] MEDS ORDERED: FENTANYL PF 250MCG/5ML AMPUL IV ONE (09:00)
[2018-12-18] MEDS: METHADONE HCL 10 MG TABLET GT SCH ×2 (09:00→21:09)
[2018-12-18] MEDS: BACLOFEN (10 MG) 10 MG TABLET GT SCH ×4 (09:00→21:09)
[2018-12-18] MEDS: ASCORBIC ACID 500 MG TABLET GT SCH ×2 (09:00→17:40)
[2018-12-18] MEDS ORDERED: NALOXONE PREFILLED SYRINGE 2 MG/2 ML SYRINGE IV ONE (09:00)
[2018-12-18] MEDS: FAMOTIDINE (20 MG) 20 MG TABLET GT SCH ×2 (09:00→21:09)
[2018-12-18] MEDS: MULTIVIT W/MINERALS 1 TAB TABLET GT SCH (09:00)
[2018-12-18] MEDS ORDERED: LIDOCAINE 1% INJ 50 ML MDV IJ ONE (11:32)
--- NOTE | 2018-12-18 12:30 | NUR ---
Pt came back from radiology. Nephrostomy tube was replaced, draining yellowish urine. BP 111/74 HR 73 T 98.1 R 18 O2 sat 95%. Pt alert and communicating verbally with staff. Notified Dr Seaman. He ordered to DC NPO and IV hydration. Ordered lunch for pt from kitchen.
[2018-12-18] MEDS: HYDROCODONE/APAP 5/325MG 1 EACH TABLET GT SCH ×2 (12:55→21:09)
[2018-12-18] MEDS: NYSTATIN/TRIAMCIN 15 GM CREAM 15 GM TUBE TP SCH ×2 (13:30→21:10)
[2018-12-18] MEDS: THERAHONEY GEL 1.5 OZ TUBE TP SCH ×6 (13:30→21:10)
[2018-12-18] MEDS: HYDROCODONE/APAP 5/325MG 1 EACH TABLET GT PRN (17:40)
[2018-12-18 20:41] VITALS: BP 109/66
--- NOTE | 2018-12-18 20:56 | NUR ---
RT NOTE PT RECEIVED TRACHED ON COOL AEROSOL @ 28%. AWAKE/ALERT. AMBU BAG/BACK UP TRACH @ BEDSIDE. TX GIVEN, NO ADVERSE REACTIONS NOTED. SX DONE, TRACH SECURED AND PATENT. CONT. POX CONNECTED. WATER LEVEL GOOD. WILL MONITOR T/O SHIFT. WILL PLACE ON VENT @ 0000 PER MD ORDER. Addendum: 12/18/18 at 2056 by VERNELL CHRISTINE RT Amended: Links added.
[2018-12-18] MEDS: POLYETHYLENE GLYCOL 3350 17 GM POWD.PACK GT SCH (21:10)
[2018-12-18] MEDS: ZINC SULFATE 220 MG CAPSULE GT SCH (21:10)
[2018-12-18] MEDS: ATORVASTATIN 10 MG TABLET GT SCH (21:10)
[2018-12-19] MEDS: IPRATROPIUM NEB FS 0.5 MG/2.5 ML AMPUL.NEB NEB SCH ×4 (01:34→19:39)
[2018-12-19] MEDS: SUCRALFATE 1 G/10 ML UDC GT SCH ×4 (05:30→21:22)
--- NOTE | 2018-12-19 07:47 | NUR ---
RT Pt is awake and alert on cool aerosol tolerating well. HHN tx tolerated well with no adverse reactions. No respiratory distress noted at this time. Addendum: 12/19/18 at 0748 by BUFFY SHERWOOD RT Amended: Links added.
[2018-12-19 07:55] VITALS: BP 121/68
[2018-12-19] MEDS: ESCITALOPRAM OXALATE (10 MG) 10 MG TABLET GT SCH (09:50)
[2018-12-19] MEDS: GABAPENTIN 250 MG/5 ML GT SCH ×3 (09:50→17:59)
[2018-12-19] MEDS: BACLOFEN (10 MG) 10 MG TABLET GT SCH ×4 (09:50→21:22)
[2018-12-19] MEDS: ACIDOPHILUS/BULGARICUS 1 EACH TAB.CHEW GT SCH ×3 (09:50→17:59)
[2018-12-19] MEDS: PROSTAT (PYXIS) 30 ML UDC GT SCH ×3 (09:51→17:59)
[2018-12-19] MEDS: CALCIUM CARBONATE 500 MG TAB.CHEW GT SCH ×3 (09:51→17:59)
[2018-12-19] MEDS: CALCITRIOL 0.25 MCG CAPSULE PO SCH (09:51)
[2018-12-19] MEDS: FAMOTIDINE (20 MG) 20 MG TABLET GT SCH ×2 (09:51→21:23)
[2018-12-19] MEDS: ASCORBIC ACID 500 MG TABLET GT SCH ×2 (09:51→17:59)
[2018-12-19] MEDS: METHADONE HCL 10 MG TABLET GT SCH ×2 (09:51→22:00)
[2018-12-19] MEDS: MULTIVIT W/MINERALS 1 TAB TABLET GT SCH (09:51)
[2018-12-19] MEDS: HYDROGEN PEROXIDE 480 ML BOTTLE TP SCH ×2 (09:53→20:34)
[2018-12-19] MEDS: HYDROCODONE/APAP 5/325MG 1 EACH TABLET GT SCH ×2 (12:36→21:22)
[2018-12-19] MEDS: NYSTATIN/TRIAMCIN 15 GM CREAM 15 GM TUBE TP SCH ×2 (13:36→22:00)
[2018-12-19] MEDS: THERAHONEY GEL 1.5 OZ TUBE TP SCH ×6 (13:36→22:00)
--- NOTE | 2018-12-19 13:48 | NUR ---
RAVI contacted and spoke with the patients sister, Vilma [phone] to invite family regarding Family Support Group for the month of December taking place 12/26/18 from 11am-12 pm in the old admin room. Vilma expressed that she wont be able to make it but appreciated the call.
[2018-12-19 20:43] VITALS: BP 104/57
--- NOTE | 2018-12-19 20:50 | NUR ---
PT RCVD TRACH'D ON COOL AEROSOL WITH CHARTED SETTINGS. PT TERRANCE TX WELL. SX DONE. PT TRACH IS PATENT AND SECURE. AMBU BAG AT BEDSIDE. NO SOB NOTED. Addendum: 12/19/18 at 2051 by LUCIANA TRIMBLE RT Amended: Links added.
[2018-12-19] MEDS: ATORVASTATIN 10 MG TABLET GT SCH (21:23)
[2018-12-19] MEDS: ZINC SULFATE 220 MG CAPSULE GT SCH (21:23)
[2018-12-19] MEDS: POLYETHYLENE GLYCOL 3350 17 GM POWD.PACK GT SCH (21:23)
[2018-12-19] MEDS: MAGNESIUM HYDROXIDE 30 ML UDC GT PRN (23:00)
[2018-12-20] MEDS: IPRATROPIUM NEB FS 0.5 MG/2.5 ML AMPUL.NEB NEB SCH ×4 (00:33→20:35)
[2018-12-20] MEDS: SUCRALFATE 1 G/10 ML UDC GT SCH ×4 (06:03→20:30)
[2018-12-20 07:58] VITALS: BP 126/68
[2018-12-20] MEDS: HYDROGEN PEROXIDE 480 ML BOTTLE TP SCH ×2 (09:00→21:04)
[2018-12-20] MEDS: METHADONE HCL 10 MG TABLET GT SCH ×2 (09:02→22:29)
[2018-12-20] MEDS: ESCITALOPRAM OXALATE (10 MG) 10 MG TABLET GT SCH (09:02)
[2018-12-20] MEDS: ACIDOPHILUS/BULGARICUS 1 EACH TAB.CHEW GT SCH ×3 (09:02→17:19)
[2018-12-20] MEDS: BACLOFEN (10 MG) 10 MG TABLET GT SCH ×4 (09:02→21:25)
[2018-12-20] MEDS: GABAPENTIN 250 MG/5 ML GT SCH ×3 (09:02→17:19)
[2018-12-20] MEDS: PROSTAT (PYXIS) 30 ML UDC GT SCH ×3 (09:03→17:19)
[2018-12-20] MEDS: HYDROCODONE/APAP 5/325MG 1 EACH TABLET GT SCH ×2 (09:03→21:25)
[2018-12-20] MEDS: CALCITRIOL 0.25 MCG CAPSULE PO SCH (09:03)
[2018-12-20] MEDS: MULTIVIT W/MINERALS 1 TAB TABLET GT SCH (09:03)
[2018-12-20] MEDS: CALCIUM CARBONATE 500 MG TAB.CHEW GT SCH ×3 (09:03→17:19)
[2018-12-20] MEDS: FAMOTIDINE (20 MG) 20 MG TABLET GT SCH ×2 (09:03→21:26)
[2018-12-20] MEDS: ASCORBIC ACID 500 MG TABLET GT SCH ×2 (09:03→17:19)
[2018-12-20] MEDS: NYSTATIN/TRIAMCIN 15 GM CREAM 15 GM TUBE TP SCH ×2 (09:40→22:00)
[2018-12-20] MEDS: THERAHONEY GEL 1.5 OZ TUBE TP SCH ×6 (09:40→22:00)
--- NOTE | 2018-12-20 11:25 | NUR ---
Seen and examined by Carolynn Dennis NP with new treatment orders, carried out.
[2018-12-20 20:08] VITALS: BP 111/66
--- NOTE | 2018-12-20 20:12 | NUR ---
Seen and examined by CARLI Hoffman no new orders.
[2018-12-20 21:06] VITALS: BP 111/66
[2018-12-20] MEDS: ZINC SULFATE 220 MG CAPSULE GT SCH (21:26)
[2018-12-20] MEDS: MAGNESIUM HYDROXIDE 30 ML UDC GT PRN (21:26)
[2018-12-20] MEDS: POLYETHYLENE GLYCOL 3350 17 GM POWD.PACK GT SCH (21:26)
[2018-12-20] MEDS: ATORVASTATIN 10 MG TABLET GT SCH (21:26)
[2018-12-21] MEDS: IPRATROPIUM NEB FS 0.5 MG/2.5 ML AMPUL.NEB NEB SCH ×4 (01:25→20:17)
[2018-12-21] MEDS: SUCRALFATE 1 G/10 ML UDC GT SCH ×4 (07:12→20:30)
[2018-12-21] MEDS: ACIDOPHILUS/BULGARICUS 1 EACH TAB.CHEW GT SCH ×3 (09:00→16:48)
[2018-12-21] MEDS: FAMOTIDINE (20 MG) 20 MG TABLET GT SCH ×2 (09:00→21:37)
[2018-12-21] MEDS: ASCORBIC ACID 500 MG TABLET GT SCH ×2 (09:00→16:48)
[2018-12-21] MEDS: GABAPENTIN 250 MG/5 ML GT SCH ×3 (09:00→16:48)
[2018-12-21] MEDS: CALCITRIOL 0.25 MCG CAPSULE PO SCH (09:00)
[2018-12-21] MEDS: ESCITALOPRAM OXALATE (10 MG) 10 MG TABLET GT SCH (09:00)
[2018-12-21] MEDS: MULTIVIT W/MINERALS 1 TAB TABLET GT SCH (09:00)
[2018-12-21] MEDS: CALCIUM CARBONATE 500 MG TAB.CHEW GT SCH ×3 (09:00→16:48)
[2018-12-21] MEDS: PROSTAT (PYXIS) 30 ML UDC GT SCH ×3 (09:00→16:48)
[2018-12-21] MEDS: BACLOFEN (10 MG) 10 MG TABLET GT SCH ×4 (09:00→21:36)
[2018-12-21] MEDS: HYDROGEN PEROXIDE 480 ML BOTTLE TP SCH ×2 (09:03→21:00)
[2018-12-21] MEDS: METHADONE HCL 10 MG TABLET GT SCH ×2 (10:00→22:30)
[2018-12-21] MEDS: HYDROCODONE/APAP 5/325MG 1 EACH TABLET GT SCH ×2 (10:00→21:37)
[2018-12-21] MEDS: THERAHONEY GEL 1.5 OZ TUBE TP SCH ×6 (10:30→21:57)
[2018-12-21] MEDS: NYSTATIN/TRIAMCIN 15 GM CREAM 15 GM TUBE TP SCH ×2 (10:30→21:57)
--- NOTE | 2018-12-21 17:16 | NUR ---
RT Patient was received on 28% cool aerosol.Patient stable throughout the shift. Trach is patent and secured.Will continue to monitor. Addendum: 12/21/18 at 1716 by ROM ARAIZA RT Amended: Links added.
[2018-12-21 19:51] VITALS: BP 107/71
[2018-12-21] MEDS: ZINC SULFATE 220 MG CAPSULE GT SCH (21:37)
[2018-12-21] MEDS: ATORVASTATIN 10 MG TABLET GT SCH (21:37)
[2018-12-21] MEDS: POLYETHYLENE GLYCOL 3350 17 GM POWD.PACK GT SCH (21:37)
[2018-12-22] MEDS: IPRATROPIUM NEB FS 0.5 MG/2.5 ML AMPUL.NEB NEB SCH ×4 (01:09→19:49)
[2018-12-22] MEDS: SUCRALFATE 1 G/10 ML UDC GT SCH ×4 (06:29→20:30)
[2018-12-22 07:42] VITALS: BP 118/62
[2018-12-22] MEDS: MULTIVIT W/MINERALS 1 TAB TABLET GT SCH (08:51)
[2018-12-22] MEDS: GABAPENTIN 250 MG/5 ML GT SCH ×3 (08:51→17:34)
[2018-12-22] MEDS: ESCITALOPRAM OXALATE (10 MG) 10 MG TABLET GT SCH (08:51)
[2018-12-22] MEDS: BACLOFEN (10 MG) 10 MG TABLET GT SCH ×4 (08:51→21:34)
[2018-12-22] MEDS: CALCIUM CARBONATE 500 MG TAB.CHEW GT SCH ×3 (08:51→17:34)
[2018-12-22] MEDS: ASCORBIC ACID 500 MG TABLET GT SCH ×2 (08:51→17:34)
[2018-12-22] MEDS: FAMOTIDINE (20 MG) 20 MG TABLET GT SCH ×2 (08:51→21:35)
[2018-12-22] MEDS: CALCITRIOL 0.25 MCG CAPSULE PO SCH (08:51)
[2018-12-22] MEDS: ACIDOPHILUS/BULGARICUS 1 EACH TAB.CHEW GT SCH ×3 (08:51→17:34)
[2018-12-22] MEDS: METHADONE HCL 10 MG TABLET GT SCH ×2 (08:51→21:34)
[2018-12-22] MEDS: PROSTAT (PYXIS) 30 ML UDC GT SCH ×3 (08:51→17:34)
[2018-12-22] MEDS: HYDROGEN PEROXIDE 480 ML BOTTLE TP SCH ×2 (09:49→21:35)
[2018-12-22] MEDS: HYDROCODONE/APAP 5/325MG 1 EACH TABLET GT SCH ×3 (11:00→21:35)
[2018-12-22] MEDS: THERAHONEY GEL 1.5 OZ TUBE TP SCH ×6 (12:00→21:35)
[2018-12-22] MEDS: NYSTATIN/TRIAMCIN 15 GM CREAM 15 GM TUBE TP SCH ×2 (12:00→21:35)
[2018-12-22 20:11] VITALS: BP 109/74
[2018-12-22] MEDS: ATORVASTATIN 10 MG TABLET GT SCH (21:35)
[2018-12-22] MEDS: POLYETHYLENE GLYCOL 3350 17 GM POWD.PACK GT SCH (21:35)
[2018-12-22] MEDS: ZINC SULFATE 220 MG CAPSULE GT SCH (21:35)
[2018-12-23] MEDS: IPRATROPIUM NEB FS 0.5 MG/2.5 ML AMPUL.NEB NEB SCH ×4 (01:10→20:02)
[2018-12-23] MEDS: SUCRALFATE 1 G/10 ML UDC GT SCH ×4 (05:16→21:13)
[2018-12-23 08:04] VITALS: BP 108/74
[2018-12-23] MEDS: HYDROGEN PEROXIDE 480 ML BOTTLE TP SCH ×2 (09:44→21:49)
[2018-12-23] MEDS: FAMOTIDINE (20 MG) 20 MG TABLET GT SCH ×2 (09:54→21:14)
[2018-12-23] MEDS: GABAPENTIN 250 MG/5 ML GT SCH ×3 (09:54→17:35)
[2018-12-23] MEDS: ACIDOPHILUS/BULGARICUS 1 EACH TAB.CHEW GT SCH ×3 (09:54→17:35)
[2018-12-23] MEDS: METHADONE HCL 10 MG TABLET GT SCH ×2 (09:54→21:13)
[2018-12-23] MEDS: ESCITALOPRAM OXALATE (10 MG) 10 MG TABLET GT SCH (09:54)
[2018-12-23] MEDS: BACLOFEN (10 MG) 10 MG TABLET GT SCH ×4 (09:54→21:13)
[2018-12-23] MEDS: ASCORBIC ACID 500 MG TABLET GT SCH ×2 (09:55→17:35)
[2018-12-23] MEDS: CALCIUM CARBONATE 500 MG TAB.CHEW GT SCH ×3 (09:55→17:35)
[2018-12-23] MEDS: CALCITRIOL 0.25 MCG CAPSULE PO SCH (09:55)
[2018-12-23] MEDS: MULTIVIT W/MINERALS 1 TAB TABLET GT SCH (09:55)
[2018-12-23] MEDS: PROSTAT (PYXIS) 30 ML UDC GT SCH ×3 (09:55→17:35)
[2018-12-23] MEDS: HYDROCODONE/APAP 5/325MG 1 EACH TABLET GT SCH ×2 (10:30→21:14)
[2018-12-23] MEDS: THERAHONEY GEL 1.5 OZ TUBE TP SCH ×6 (11:00→21:14)
[2018-12-23] MEDS: NYSTATIN/TRIAMCIN 15 GM CREAM 15 GM TUBE TP SCH ×2 (11:00→21:14)
[2018-12-23 19:40] VITALS: BP 106/61
[2018-12-23] MEDS: ZINC SULFATE 220 MG CAPSULE GT SCH (21:14)
[2018-12-23] MEDS: POLYETHYLENE GLYCOL 3350 17 GM POWD.PACK GT SCH (21:14)
[2018-12-23] MEDS: ATORVASTATIN 10 MG TABLET GT SCH (21:14)
[2018-12-24] MEDS: IPRATROPIUM NEB FS 0.5 MG/2.5 ML AMPUL.NEB NEB SCH ×4 (01:37→19:40)
[2018-12-24] MEDS: SUCRALFATE 1 G/10 ML UDC GT SCH ×4 (05:34→21:12)
[2018-12-24] MEDS: ACIDOPHILUS/BULGARICUS 1 EACH TAB.CHEW GT SCH ×3 (08:45→16:19)
[2018-12-24] MEDS: GABAPENTIN 250 MG/5 ML GT SCH ×3 (08:45→16:18)
[2018-12-24] MEDS: BACLOFEN (10 MG) 10 MG TABLET GT SCH ×4 (08:46→21:12)
[2018-12-24] MEDS: ESCITALOPRAM OXALATE (10 MG) 10 MG TABLET GT SCH (08:46)
[2018-12-24] MEDS: FAMOTIDINE (20 MG) 20 MG TABLET GT SCH ×2 (08:47→21:13)
[2018-12-24] MEDS: MULTIVIT W/MINERALS 1 TAB TABLET GT SCH (08:47)
[2018-12-24] MEDS: CALCITRIOL 0.25 MCG CAPSULE PO SCH (08:47)
[2018-12-24] MEDS: METHADONE HCL 10 MG TABLET GT SCH ×2 (08:47→21:12)
[2018-12-24] MEDS: ASCORBIC ACID 500 MG TABLET GT SCH ×2 (08:47→16:19)
[2018-12-24] MEDS: PROSTAT (PYXIS) 30 ML UDC GT SCH ×3 (08:47→16:19)
[2018-12-24] MEDS: CALCIUM CARBONATE 500 MG TAB.CHEW GT SCH ×3 (08:47→16:19)
[2018-12-24 09:00] VITALS: BP 136/63
[2018-12-24] MEDS: HYDROGEN PEROXIDE 480 ML BOTTLE TP SCH ×2 (09:00→19:40)
[2018-12-24] MEDS: HYDROCODONE/APAP 5/325MG 1 EACH TABLET GT SCH ×2 (12:15→21:13)
[2018-12-24] MEDS: THERAHONEY GEL 1.5 OZ TUBE TP SCH ×6 (13:15→21:14)
[2018-12-24] MEDS: NYSTATIN/TRIAMCIN 15 GM CREAM 15 GM TUBE TP SCH ×2 (13:15→21:13)
--- NOTE | 2018-12-24 19:52 | NUR ---
RT NOTE: RECEIVED TRACH PT ON COOL AEROSOL. WILL PLACE PT ON VENT AT MIDNIGHT PER MD ORDER. TRACH IS PATENT AND SECURED. TRACH CARE DONE. PLANTING SUPERVISOR DONE. Q6 BREATHING TX GIVEN WITH NO ADVERSE REACTION NOTED. SX DONE PRN. NO RESP DISTRESS AT THIS TIME. WILL CONT TO MONITOR PT. Addendum: 12/25/18 at 0335 by SOBIA VILLA RT Amended: Links added.
[2018-12-24] MEDS: ZINC SULFATE 220 MG CAPSULE GT SCH (21:13)
[2018-12-24] MEDS: ENOXAPARIN SODIUM 40 MG/0.4 ML DISP.SYRIN SQ SCH (21:13)
[2018-12-24] MEDS: ATORVASTATIN 10 MG TABLET GT SCH (21:14)
[2018-12-24] MEDS: POLYETHYLENE GLYCOL 3350 17 GM POWD.PACK GT SCH (21:14)
[2018-12-24 21:28] VITALS: BP 105/61
[2018-12-25] MEDS: IPRATROPIUM NEB FS 0.5 MG/2.5 ML AMPUL.NEB NEB SCH ×4 (01:48→19:40)
[2018-12-25] MEDS: SUCRALFATE 1 G/10 ML UDC GT SCH ×4 (05:41→21:23)
[2018-12-25 07:50] VITALS: BP 136/69
[2018-12-25] MEDS: NYSTATIN/TRIAMCIN 15 GM CREAM 15 GM TUBE TP SCH ×2 (09:00→21:24)
[2018-12-25] MEDS: HYDROGEN PEROXIDE 480 ML BOTTLE TP SCH ×2 (09:00→20:24)
[2018-12-25] MEDS: THERAHONEY GEL 1.5 OZ TUBE TP SCH ×6 (09:00→21:24)
[2018-12-25] MEDS: ACIDOPHILUS/BULGARICUS 1 EACH TAB.CHEW GT SCH ×3 (09:20→16:28)
[2018-12-25] MEDS: GABAPENTIN 250 MG/5 ML GT SCH ×3 (09:20→16:28)
[2018-12-25] MEDS: ESCITALOPRAM OXALATE (10 MG) 10 MG TABLET GT SCH (09:20)
[2018-12-25] MEDS: MULTIVIT W/MINERALS 1 TAB TABLET GT SCH (09:21)
[2018-12-25] MEDS: HYDROCODONE/APAP 5/325MG 1 EACH TABLET GT SCH ×2 (09:21→21:23)
[2018-12-25] MEDS: METHADONE HCL 10 MG TABLET GT SCH ×2 (09:21→21:23)
[2018-12-25] MEDS: BACLOFEN (10 MG) 10 MG TABLET GT SCH ×4 (09:21→21:23)
[2018-12-25] MEDS: FAMOTIDINE (20 MG) 20 MG TABLET GT SCH ×2 (09:21→21:23)
[2018-12-25] MEDS: PROSTAT (PYXIS) 30 ML UDC GT SCH ×3 (09:21→16:28)
[2018-12-25] MEDS: ASCORBIC ACID 500 MG TABLET GT SCH ×2 (09:22→16:28)
[2018-12-25] MEDS: CALCITRIOL 0.25 MCG CAPSULE PO SCH (09:22)
[2018-12-25] MEDS: CALCIUM CARBONATE 500 MG TAB.CHEW GT SCH ×3 (09:22→16:28)
--- NOTE | 2018-12-25 21:01 | NUR ---
RT NOTE PT RECEIVED TRACHED ON COOL AEROSOL @ 28%. AMBU BAG/BACK UP TRACH @ BEDSIDE. TX GIVEN, NO ADVERSE REACTIONS NOTED. SX DONE, TRACH SECURED AND PATENT. WATER LEVEL GOOD. NO SOB NOTED. WILL MONITOR T/O SHIFT. WILL PLACE ON VENT @ 0000 PER MD ORDER. Addendum: 12/25/18 at 2103 by VERNELL CHRISTINE RT Amended: Links added.
[2018-12-25 21:10] VITALS: BP 111/69
[2018-12-25] MEDS: ZINC SULFATE 220 MG CAPSULE GT SCH (21:23)
[2018-12-25] MEDS: POLYETHYLENE GLYCOL 3350 17 GM POWD.PACK GT SCH (21:24)
[2018-12-25] MEDS: ENOXAPARIN SODIUM 40 MG/0.4 ML DISP.SYRIN SQ SCH (21:24)
[2018-12-25] MEDS: ATORVASTATIN 10 MG TABLET GT SCH (21:24)
[2018-12-26] MEDS: IPRATROPIUM NEB FS 0.5 MG/2.5 ML AMPUL.NEB NEB SCH ×4 (01:41→20:08)
[2018-12-26] MEDS: SUCRALFATE 1 G/10 ML UDC GT SCH ×4 (06:08→20:54)
[2018-12-26 07:48] VITALS: BP 102/56
[2018-12-26] MEDS: HYDROGEN PEROXIDE 480 ML BOTTLE TP SCH ×2 (09:00→21:04)
[2018-12-26] MEDS: MULTIVIT W/MINERALS 1 TAB TABLET GT SCH (09:52)
[2018-12-26] MEDS: ASCORBIC ACID 500 MG TABLET GT SCH ×2 (09:52→17:10)
[2018-12-26] MEDS: FAMOTIDINE (20 MG) 20 MG TABLET GT SCH ×2 (09:52→20:55)
[2018-12-26] MEDS: ACIDOPHILUS/BULGARICUS 1 EACH TAB.CHEW GT SCH ×3 (09:52→17:10)
[2018-12-26] MEDS: PROSTAT (PYXIS) 30 ML UDC GT SCH ×3 (09:52→17:10)
[2018-12-26] MEDS: METHADONE HCL 10 MG TABLET GT SCH ×2 (09:52→20:55)
[2018-12-26] MEDS: CALCITRIOL 0.25 MCG CAPSULE PO SCH (09:52)
[2018-12-26] MEDS: CALCIUM CARBONATE 500 MG TAB.CHEW GT SCH ×3 (09:52→17:10)
[2018-12-26] MEDS: GABAPENTIN 250 MG/5 ML GT SCH ×3 (09:52→17:10)
[2018-12-26] MEDS: BACLOFEN (10 MG) 10 MG TABLET GT SCH ×4 (09:52→20:54)
[2018-12-26] MEDS: ESCITALOPRAM OXALATE (10 MG) 10 MG TABLET GT SCH (09:52)
[2018-12-26] MEDS: HYDROCODONE/APAP 5/325MG 1 EACH TABLET GT SCH ×2 (10:30→20:55)
[2018-12-26] MEDS: THERAHONEY GEL 1.5 OZ TUBE TP SCH ×6 (11:00→20:56)
[2018-12-26] MEDS: NYSTATIN/TRIAMCIN 15 GM CREAM 15 GM TUBE TP SCH ×2 (11:00→20:56)
--- NOTE | 2018-12-26 13:13 | NUR ---
The pt.'s family was not able to attend this month's Family Support Group.
[2018-12-26 20:28] VITALS: BP 109/60
[2018-12-26] MEDS: ENOXAPARIN SODIUM 40 MG/0.4 ML DISP.SYRIN SQ SCH (20:54)
[2018-12-26] MEDS: ZINC SULFATE 220 MG CAPSULE GT SCH (20:57)
[2018-12-26] MEDS: POLYETHYLENE GLYCOL 3350 17 GM POWD.PACK GT SCH (20:57)
[2018-12-26] MEDS: ATORVASTATIN 10 MG TABLET GT SCH (20:57)
--- NOTE | 2018-12-26 21:01 | NUR ---
PT RECEIVE STABLE ON 28%CA , TRACH PATENT AND SECURED, DAMIE NENA AND NAIMA BAG IS AT BEDSIDE , WILL CONTINUE TO MONITOR Addendum: 12/26/18 at 2103 by YESICA CHEW RT Amended: Links added.
[2018-12-27] MEDS: IPRATROPIUM NEB FS 0.5 MG/2.5 ML AMPUL.NEB NEB SCH ×4 (01:12→19:49)
[2018-12-27] MEDS: SUCRALFATE 1 G/10 ML UDC GT SCH ×4 (06:03→20:25)
[2018-12-27 07:59] VITALS: BP 116/66
[2018-12-27] MEDS: HYDROGEN PEROXIDE 480 ML BOTTLE TP SCH ×2 (09:00→19:49)
[2018-12-27] MEDS: GABAPENTIN 250 MG/5 ML GT SCH ×3 (09:19→17:34)
[2018-12-27] MEDS: ESCITALOPRAM OXALATE (10 MG) 10 MG TABLET GT SCH (09:19)
[2018-12-27] MEDS: ACIDOPHILUS/BULGARICUS 1 EACH TAB.CHEW GT SCH ×3 (09:19→17:34)
[2018-12-27] MEDS: BACLOFEN (10 MG) 10 MG TABLET GT SCH ×4 (09:19→20:25)
[2018-12-27] MEDS: MULTIVIT W/MINERALS 1 TAB TABLET GT SCH (09:20)
[2018-12-27] MEDS: PROSTAT (PYXIS) 30 ML UDC GT SCH ×3 (09:20→17:34)
[2018-12-27] MEDS: FAMOTIDINE (20 MG) 20 MG TABLET GT SCH ×2 (09:20→20:26)
[2018-12-27] MEDS: METHADONE HCL 10 MG TABLET GT SCH ×2 (09:20→21:14)
[2018-12-27] MEDS: CALCIUM CARBONATE 500 MG TAB.CHEW GT SCH ×3 (09:20→17:34)
[2018-12-27] MEDS: ASCORBIC ACID 500 MG TABLET GT SCH ×2 (09:20→17:34)
[2018-12-27] MEDS: CALCITRIOL 0.25 MCG CAPSULE PO SCH (09:20)
[2018-12-27] MEDS: HYDROCODONE/APAP 5/325MG 1 EACH TABLET GT SCH ×2 (12:35→20:29)
[2018-12-27] MEDS: THERAHONEY GEL 1.5 OZ TUBE TP SCH ×6 (13:10→20:28)
[2018-12-27] MEDS: NYSTATIN/TRIAMCIN 15 GM CREAM 15 GM TUBE TP SCH ×2 (13:10→20:28)
[2018-12-27 19:59] VITALS: BP 109/70
--- NOTE | 2018-12-27 20:00 | NUR ---
RT NOTE: RECEIVED TRACH PT ON COOL AEROSOL. WILL PLACE PT ON VENT AT MIDNIGHT PER MD ORDER. TRACH IS PATENT AND SECURED. TRACH CARE DONE. MOTORCYCLE ENGINE ASSEMBLER DONE. Q6 BREATHING TX GIVEN WITH NO ADVERSE REACTION NOTED. SX DONE PRN. NO RESP DISTRESS AT THIS TIME. WILL CONT TO MONITOR PT. Addendum: 12/28/18 at 0244 by SOBIA VILLA RT Amended: Links added.
[2018-12-27] MEDS: ZINC SULFATE 220 MG CAPSULE GT SCH (20:26)
[2018-12-27] MEDS: ENOXAPARIN SODIUM 40 MG/0.4 ML DISP.SYRIN SQ SCH (20:28)
[2018-12-27] MEDS: ATORVASTATIN 10 MG TABLET GT SCH (21:11)
[2018-12-27] MEDS: POLYETHYLENE GLYCOL 3350 17 GM POWD.PACK GT SCH (21:11)
[2018-12-28] MEDS: IPRATROPIUM NEB FS 0.5 MG/2.5 ML AMPUL.NEB NEB SCH ×4 (01:31→19:22)
[2018-12-28] MEDS: SUCRALFATE 1 G/10 ML UDC GT SCH ×4 (05:42→20:41)
[2018-12-28] MEDS: METHOCARBAMOL (750MG) 750 MG TABLET GT PRN (05:42)
[2018-12-28] MEDS: HYDROGEN PEROXIDE 480 ML BOTTLE TP SCH ×2 (07:31→20:46)
[2018-12-28 07:40] VITALS: BP 126/73
[2018-12-28] MEDS: PROSTAT (PYXIS) 30 ML UDC GT SCH ×3 (08:40→17:03)
[2018-12-28] MEDS: BACLOFEN (10 MG) 10 MG TABLET GT SCH ×4 (08:40→20:41)
[2018-12-28] MEDS: FAMOTIDINE (20 MG) 20 MG TABLET GT SCH ×2 (08:40→20:46)
[2018-12-28] MEDS: METHADONE HCL 10 MG TABLET GT SCH ×3 (08:40→21:15)
[2018-12-28] MEDS: MULTIVIT W/MINERALS 1 TAB TABLET GT SCH (08:40)
[2018-12-28] MEDS: ASCORBIC ACID 500 MG TABLET GT SCH ×2 (08:40→17:03)
[2018-12-28] MEDS: CALCIUM CARBONATE 500 MG TAB.CHEW GT SCH ×3 (08:40→17:03)
[2018-12-28] MEDS: ESCITALOPRAM OXALATE (10 MG) 10 MG TABLET GT SCH (08:40)
[2018-12-28] MEDS: CALCITRIOL 0.25 MCG CAPSULE PO SCH (08:40)
[2018-12-28] MEDS: ACIDOPHILUS/BULGARICUS 1 EACH TAB.CHEW GT SCH ×3 (08:40→17:03)
[2018-12-28] MEDS: GABAPENTIN 250 MG/5 ML GT SCH ×3 (08:42→17:03)
[2018-12-28] MEDS: HYDROCODONE/APAP 5/325MG 1 EACH TABLET GT SCH ×2 (09:30→20:41)
[2018-12-28] MEDS: NYSTATIN/TRIAMCIN 15 GM CREAM 15 GM TUBE TP SCH ×2 (10:00→20:46)
[2018-12-28] MEDS: THERAHONEY GEL 1.5 OZ TUBE TP SCH ×6 (10:00→20:46)
[2018-12-28 20:23] VITALS: BP 107/63
[2018-12-28] MEDS: ZINC SULFATE 220 MG CAPSULE GT SCH (20:46)
[2018-12-28] MEDS: ENOXAPARIN SODIUM 40 MG/0.4 ML DISP.SYRIN SQ SCH (20:47)
[2018-12-28] MEDS: POLYETHYLENE GLYCOL 3350 17 GM POWD.PACK GT SCH (21:15)
[2018-12-28] MEDS: ATORVASTATIN 10 MG TABLET GT SCH (21:15)
[2018-12-29] MEDS: IPRATROPIUM NEB FS 0.5 MG/2.5 ML AMPUL.NEB NEB SCH ×4 (01:38→19:18)
[2018-12-29] MEDS: MAGNESIUM HYDROXIDE 30 ML UDC GT PRN (05:32)
[2018-12-29] MEDS: SUCRALFATE 1 G/10 ML UDC GT SCH ×4 (05:32→20:30)
[2018-12-29] MEDS: METHOCARBAMOL (750MG) 750 MG TABLET GT PRN (05:32)
[2018-12-29 08:36] VITALS: BP 92/50
[2018-12-29] MEDS: NYSTATIN/TRIAMCIN 15 GM CREAM 15 GM TUBE TP SCH ×2 (09:00→20:31)
[2018-12-29] MEDS: THERAHONEY GEL 1.5 OZ TUBE TP SCH ×6 (09:00→20:32)
[2018-12-29] MEDS: HYDROGEN PEROXIDE 480 ML BOTTLE TP SCH ×2 (09:00→20:31)
[2018-12-29] MEDS: PROSTAT (PYXIS) 30 ML UDC GT SCH ×3 (09:52→16:55)
[2018-12-29] MEDS: BACLOFEN (10 MG) 10 MG TABLET GT SCH ×4 (09:52→20:30)
[2018-12-29] MEDS: ACIDOPHILUS/BULGARICUS 1 EACH TAB.CHEW GT SCH ×3 (09:52→16:55)
[2018-12-29] MEDS: GABAPENTIN 250 MG/5 ML GT SCH ×3 (09:52→16:53)
[2018-12-29] MEDS: FAMOTIDINE (20 MG) 20 MG TABLET GT SCH ×2 (09:52→20:31)
[2018-12-29] MEDS: METHADONE HCL 10 MG TABLET GT SCH ×2 (09:52→21:27)
[2018-12-29] MEDS: HYDROCODONE/APAP 5/325MG 1 EACH TABLET GT SCH ×2 (09:52→20:31)
[2018-12-29] MEDS: ESCITALOPRAM OXALATE (10 MG) 10 MG TABLET GT SCH (09:52)
[2018-12-29] MEDS: CALCIUM CARBONATE 500 MG TAB.CHEW GT SCH ×3 (09:53→16:55)
[2018-12-29] MEDS: MULTIVIT W/MINERALS 1 TAB TABLET GT SCH (09:53)
[2018-12-29] MEDS: CALCITRIOL 0.25 MCG CAPSULE PO SCH (09:53)
[2018-12-29] MEDS: ASCORBIC ACID 500 MG TABLET GT SCH ×2 (09:53→16:55)
[2018-12-29 19:26] VITALS: BP 104/60
[2018-12-29] MEDS: ZINC SULFATE 220 MG CAPSULE GT SCH (20:31)
[2018-12-29] MEDS: ENOXAPARIN SODIUM 40 MG/0.4 ML DISP.SYRIN SQ SCH (20:31)
[2018-12-29 20:45] VITALS: BP 104/60
[2018-12-29] MEDS: ATORVASTATIN 10 MG TABLET GT SCH (21:27)
[2018-12-29] MEDS: POLYETHYLENE GLYCOL 3350 17 GM POWD.PACK GT SCH (21:27)
[2018-12-30] MEDS: IPRATROPIUM NEB FS 0.5 MG/2.5 ML AMPUL.NEB NEB SCH ×4 (01:19→20:08)
[2018-12-30] MEDS: SUCRALFATE 1 G/10 ML UDC GT SCH ×4 (05:42→20:37)
[2018-12-30 07:59] VITALS: BP 111/66
[2018-12-30] MEDS: HYDROGEN PEROXIDE 480 ML BOTTLE TP SCH ×2 (08:20→21:07)
[2018-12-30] MEDS: NYSTATIN/TRIAMCIN 15 GM CREAM 15 GM TUBE TP SCH ×2 (09:00→20:40)
[2018-12-30] MEDS: THERAHONEY GEL 1.5 OZ TUBE TP SCH ×6 (09:00→21:38)
[2018-12-30] MEDS: GABAPENTIN 250 MG/5 ML GT SCH ×3 (09:24→16:47)
[2018-12-30] MEDS: BACLOFEN (10 MG) 10 MG TABLET GT SCH ×4 (09:24→20:37)
[2018-12-30] MEDS: ACIDOPHILUS/BULGARICUS 1 EACH TAB.CHEW GT SCH ×3 (09:24→16:47)
[2018-12-30] MEDS: METHADONE HCL 10 MG TABLET GT SCH ×2 (09:24→20:38)
[2018-12-30] MEDS: ESCITALOPRAM OXALATE (10 MG) 10 MG TABLET GT SCH (09:24)
[2018-12-30] MEDS: CALCIUM CARBONATE 500 MG TAB.CHEW GT SCH ×3 (09:25→16:47)
[2018-12-30] MEDS: PROSTAT (PYXIS) 30 ML UDC GT SCH ×3 (09:25→16:47)
[2018-12-30] MEDS: HYDROCODONE/APAP 5/325MG 1 EACH TABLET GT SCH ×2 (09:25→20:39)
[2018-12-30] MEDS: CALCITRIOL 0.25 MCG CAPSULE PO SCH (09:25)
[2018-12-30] MEDS: FAMOTIDINE (20 MG) 20 MG TABLET GT SCH ×2 (09:25→20:39)
[2018-12-30] MEDS: ASCORBIC ACID 500 MG TABLET GT SCH ×2 (09:25→16:47)
[2018-12-30] MEDS: MULTIVIT W/MINERALS 1 TAB TABLET GT SCH (09:25)
[2018-12-30 19:51] VITALS: BP 110/66
[2018-12-30] MEDS: ZINC SULFATE 220 MG CAPSULE GT SCH (20:39)
[2018-12-30] MEDS: ENOXAPARIN SODIUM 40 MG/0.4 ML DISP.SYRIN SQ SCH (20:39)
[2018-12-30] MEDS: POLYETHYLENE GLYCOL 3350 17 GM POWD.PACK GT SCH (21:38)
[2018-12-30] MEDS: ATORVASTATIN 10 MG TABLET GT SCH (21:38)
[2018-12-31] MEDS: IPRATROPIUM NEB FS 0.5 MG/2.5 ML AMPUL.NEB NEB SCH ×3 (01:55→20:03)
[2018-12-31] MEDS: SUCRALFATE 1 G/10 ML UDC GT SCH ×4 (05:44→21:12)
[2018-12-31 07:24] VITALS: BP 118/72
[2018-12-31] MEDS: HYDROGEN PEROXIDE 480 ML BOTTLE TP SCH ×2 (09:00→21:06)
[2018-12-31] MEDS: GABAPENTIN 250 MG/5 ML GT SCH ×3 (09:39→16:35)
[2018-12-31] MEDS: ACIDOPHILUS/BULGARICUS 1 EACH TAB.CHEW GT SCH ×3 (09:39→16:35)
[2018-12-31] MEDS: ESCITALOPRAM OXALATE (10 MG) 10 MG TABLET GT SCH (09:39)
[2018-12-31] MEDS: BACLOFEN (10 MG) 10 MG TABLET GT SCH ×4 (09:39→21:12)
[2018-12-31] MEDS: PROSTAT (PYXIS) 30 ML UDC GT SCH ×3 (09:40→16:35)
[2018-12-31] MEDS: MULTIVIT W/MINERALS 1 TAB TABLET GT SCH (09:40)
[2018-12-31] MEDS: CALCITRIOL 0.25 MCG CAPSULE PO SCH (09:40)
[2018-12-31] MEDS: ASCORBIC ACID 500 MG TABLET GT SCH ×2 (09:40→16:35)
[2018-12-31] MEDS: METHADONE HCL 10 MG TABLET GT SCH ×2 (09:40→21:57)
[2018-12-31] MEDS: FAMOTIDINE (20 MG) 20 MG TABLET GT SCH ×2 (09:40→21:13)
[2018-12-31] MEDS: CALCIUM CARBONATE 500 MG TAB.CHEW GT SCH ×3 (09:40→16:35)
[2018-12-31] MEDS: HYDROCODONE/APAP 5/325MG 1 EACH TABLET GT SCH ×2 (12:45→21:13)
[2018-12-31] MEDS: THERAHONEY GEL 1.5 OZ TUBE TP SCH ×6 (13:45→21:47)
[2018-12-31] MEDS: NYSTATIN/TRIAMCIN 15 GM CREAM 15 GM TUBE TP SCH ×2 (13:45→21:47)
--- NOTE | 2018-12-31 14:00 | NUR ---
Jackman catheter changed due to with blockage and bypassing. Tolerated procedure well draining clear yellow urine. All needs met and attended.
[2018-12-31 19:55] VITALS: BP 117/61
[2018-12-31] MEDS: ATORVASTATIN 10 MG TABLET GT SCH (21:13)
[2018-12-31] MEDS: POLYETHYLENE GLYCOL 3350 17 GM POWD.PACK GT SCH (21:13)
[2018-12-31] MEDS: ENOXAPARIN SODIUM 40 MG/0.4 ML DISP.SYRIN SQ SCH (21:13)
--- NOTE | 2018-12-31 21:22 | NUR ---
PT RECEIVE STABLE ON 28% CA VIA T MASK, TRACH PATENT AND SECURED, WILL CONTINUE TO MONITOR Addendum: 12/31/18 at 2123 by YESICA CHEW RT Amended: Links added.
[2018-12-31] MEDS: ZINC SULFATE 220 MG CAPSULE GT SCH (21:47)
[2019-01-01] MEDS: IPRATROPIUM NEB FS 0.5 MG/2.5 ML AMPUL.NEB NEB SCH ×4 (01:29→19:30)
[2019-01-01] MEDS: SUCRALFATE 1 G/10 ML UDC GT SCH ×4 (05:34→20:51)
[2019-01-01] MEDS: MAGNESIUM HYDROXIDE 30 ML UDC GT PRN (06:33)
[2019-01-01] MEDS: HYDROGEN PEROXIDE 480 ML BOTTLE TP SCH ×2 (07:34→21:10)
[2019-01-01 07:59] VITALS: BP 109/68
[2019-01-01] MEDS: FAMOTIDINE (20 MG) 20 MG TABLET GT SCH ×2 (08:56→20:52)
[2019-01-01] MEDS: MULTIVIT W/MINERALS 1 TAB TABLET GT SCH (08:56)
[2019-01-01] MEDS: ASCORBIC ACID 500 MG TABLET GT SCH ×2 (08:56→16:27)
[2019-01-01] MEDS: METHADONE HCL 10 MG TABLET GT SCH ×2 (08:56→21:45)
[2019-01-01] MEDS: BACLOFEN (10 MG) 10 MG TABLET GT SCH ×4 (08:56→20:51)
[2019-01-01] MEDS: GABAPENTIN 250 MG/5 ML GT SCH ×3 (08:56→16:27)
[2019-01-01] MEDS: PROSTAT (PYXIS) 30 ML UDC GT SCH ×3 (08:56→16:27)
[2019-01-01] MEDS: ESCITALOPRAM OXALATE (10 MG) 10 MG TABLET GT SCH (08:56)
[2019-01-01] MEDS: ACIDOPHILUS/BULGARICUS 1 EACH TAB.CHEW GT SCH ×3 (08:56→16:27)
[2019-01-01] MEDS: CALCIUM CARBONATE 500 MG TAB.CHEW GT SCH ×3 (08:56→16:27)
[2019-01-01] MEDS: CALCITRIOL 0.25 MCG CAPSULE PO SCH (08:57)
[2019-01-01] MEDS: HYDROCODONE/APAP 5/325MG 1 EACH TABLET GT SCH ×2 (10:40→20:52)
[2019-01-01] MEDS: THERAHONEY GEL 1.5 OZ TUBE TP SCH ×6 (11:10→21:32)
[2019-01-01] MEDS: NYSTATIN/TRIAMCIN 15 GM CREAM 15 GM TUBE TP SCH ×2 (11:10→20:52)
[2019-01-01 20:26] VITALS: BP 108/62
[2019-01-01] MEDS: ZINC SULFATE 220 MG CAPSULE GT SCH (20:52)
[2019-01-01] MEDS: ENOXAPARIN SODIUM 40 MG/0.4 ML DISP.SYRIN SQ SCH (20:52)
[2019-01-01] MEDS: ATORVASTATIN 10 MG TABLET GT SCH (21:33)
[2019-01-01] MEDS: POLYETHYLENE GLYCOL 3350 17 GM POWD.PACK GT SCH (21:33)
[2019-01-02] MEDS: IPRATROPIUM NEB FS 0.5 MG/2.5 ML AMPUL.NEB NEB SCH ×4 (01:06→20:30)
[2019-01-02] MEDS: SUCRALFATE 1 G/10 ML UDC GT SCH ×4 (06:22→20:36)
[2019-01-02 07:43] VITALS: BP 115/67
[2019-01-02] MEDS: HYDROGEN PEROXIDE 480 ML BOTTLE TP SCH ×2 (08:00→21:09)
[2019-01-02] MEDS: GABAPENTIN 250 MG/5 ML GT SCH ×3 (08:52→17:30)
[2019-01-02] MEDS: BACLOFEN (10 MG) 10 MG TABLET GT SCH ×4 (08:53→20:36)
[2019-01-02] MEDS: ESCITALOPRAM OXALATE (10 MG) 10 MG TABLET GT SCH (08:53)
[2019-01-02] MEDS: ACIDOPHILUS/BULGARICUS 1 EACH TAB.CHEW GT SCH ×3 (08:53→17:30)
[2019-01-02] MEDS: CALCIUM CARBONATE 500 MG TAB.CHEW GT SCH ×3 (08:55→17:30)
[2019-01-02] MEDS: ASCORBIC ACID 500 MG TABLET GT SCH ×2 (08:55→17:30)
[2019-01-02] MEDS: FAMOTIDINE (20 MG) 20 MG TABLET GT SCH ×2 (08:55→20:36)
[2019-01-02] MEDS: HYDROCODONE/APAP 5/325MG 1 EACH TABLET GT SCH ×2 (08:55→20:36)
[2019-01-02] MEDS: METHADONE HCL 10 MG TABLET GT SCH ×2 (08:55→21:57)
[2019-01-02] MEDS: CALCITRIOL 0.25 MCG CAPSULE PO SCH (08:55)
[2019-01-02] MEDS: PROSTAT (PYXIS) 30 ML UDC GT SCH ×3 (08:55→17:30)
[2019-01-02] MEDS: MULTIVIT W/MINERALS 1 TAB TABLET GT SCH (08:55)
[2019-01-02] MEDS: NYSTATIN/TRIAMCIN 15 GM CREAM 15 GM TUBE TP SCH ×2 (09:00→21:22)
[2019-01-02] MEDS: THERAHONEY GEL 1.5 OZ TUBE TP SCH ×6 (09:00→21:22)
--- NOTE | 2019-01-02 11:24 | NUR ---
RAVI contacted the pt.'s responsible libertarian/Sister in Law, Vilma [phone] to inform them about the Family Satisfaction Survey and its purpose. Vilma stated that RAVI can mail the survey to her preferred address. RAVI mailed out the survey to Vilma and attached prepaid envelope to have it mailed back. Vilma was agreeable to plan.
[2019-01-02] MEDS: ZINC SULFATE 220 MG CAPSULE GT SCH (20:36)
[2019-01-02] MEDS: ENOXAPARIN SODIUM 40 MG/0.4 ML DISP.SYRIN SQ SCH (20:37)
[2019-01-02] MEDS: ATORVASTATIN 10 MG TABLET GT SCH (21:22)
[2019-01-02] MEDS: POLYETHYLENE GLYCOL 3350 17 GM POWD.PACK GT SCH (21:22)
[2019-01-02 21:24] VITALS: BP 120/75
--- NOTE | 2019-01-02 21:46 | NUR ---
RT NOTE PT RECEIVED TRACHED ON COOL AEROSOL @ 28%. AWAKE/ALERT. AMBU BAG/BACK UP TRACH @ BEDSIDE. TX GIVEN, NO ADVERSE REACTIONS NOTED. SX DONE, TRACH SECURED AND PATENT. WATER LEVEL GOOD. NO SOB NOTED. WILL MONITOR. WILL PLACE ON VENT @ 0000 PER MD ORDER. CONT. PULSE OX CONNECTED. Addendum: 01/02/19 at 2146 by VERNELL CHRISTINE RT Amended: Links added.
[2019-01-03] MEDS: IPRATROPIUM NEB FS 0.5 MG/2.5 ML AMPUL.NEB NEB SCH ×4 (02:00→20:21)
[2019-01-03] MEDS: SUCRALFATE 1 G/10 ML UDC GT SCH ×4 (05:41→20:30)
[2019-01-03 08:24] VITALS: BP 112/75
[2019-01-03] MEDS: HYDROGEN PEROXIDE 480 ML BOTTLE TP SCH ×2 (09:00→20:21)
[2019-01-03] MEDS: THERAHONEY GEL 1.5 OZ TUBE TP SCH ×6 (09:00→21:00)
[2019-01-03] MEDS: NYSTATIN/TRIAMCIN 15 GM CREAM 15 GM TUBE TP SCH ×2 (09:00→21:00)
[2019-01-03] MEDS: ACIDOPHILUS/BULGARICUS 1 EACH TAB.CHEW GT SCH ×3 (09:23→16:54)
[2019-01-03] MEDS: BACLOFEN (10 MG) 10 MG TABLET GT SCH ×4 (09:23→21:00)
[2019-01-03] MEDS: GABAPENTIN 250 MG/5 ML GT SCH ×3 (09:23→16:54)
[2019-01-03] MEDS: METHADONE HCL 10 MG TABLET GT SCH ×2 (09:23→21:00)
[2019-01-03] MEDS: ESCITALOPRAM OXALATE (10 MG) 10 MG TABLET GT SCH (09:23)
[2019-01-03] MEDS: CALCIUM CARBONATE 500 MG TAB.CHEW GT SCH ×3 (09:24→16:55)
[2019-01-03] MEDS: MULTIVIT W/MINERALS 1 TAB TABLET GT SCH (09:24)
[2019-01-03] MEDS: CALCITRIOL 0.25 MCG CAPSULE PO SCH (09:24)
[2019-01-03] MEDS: PROSTAT (PYXIS) 30 ML UDC GT SCH ×3 (09:24→16:55)
[2019-01-03] MEDS: FAMOTIDINE (20 MG) 20 MG TABLET GT SCH ×2 (09:24→21:00)
[2019-01-03] MEDS: HYDROCODONE/APAP 5/325MG 1 EACH TABLET GT SCH ×2 (09:24→21:00)
[2019-01-03] MEDS: ASCORBIC ACID 500 MG TABLET GT SCH ×2 (09:24→16:55)
--- NOTE | 2019-01-03 17:35 | NUR ---
Asked CARLI Ortiz if she wanted to repeat urine culture to be able to DC isolation for ESBL urine. Last urine culture showed mixed contaminants. CARLI Ortiz said she will document to DC isolation. Pt's urine yellowish in color, no foul odor, pt's temp 98.7F.
[2019-01-03] MEDS: ZINC SULFATE 220 MG CAPSULE GT SCH (21:00)
[2019-01-03] MEDS: ENOXAPARIN SODIUM 40 MG/0.4 ML DISP.SYRIN SQ SCH (21:00)
[2019-01-03 21:34] VITALS: BP 136/59
[2019-01-03] MEDS: ATORVASTATIN 10 MG TABLET GT SCH (22:36)
[2019-01-03] MEDS: POLYETHYLENE GLYCOL 3350 17 GM POWD.PACK GT SCH (22:37)
[2019-01-04] MEDS: IPRATROPIUM NEB FS 0.5 MG/2.5 ML AMPUL.NEB NEB SCH ×4 (02:02→19:41)
[2019-01-04] MEDS: SUCRALFATE 1 G/10 ML UDC GT SCH ×4 (05:46→20:31)
[2019-01-04 08:01] VITALS: BP 115/71
[2019-01-04] MEDS: HYDROGEN PEROXIDE 480 ML BOTTLE TP SCH ×2 (08:55→20:37)
[2019-01-04] MEDS: NYSTATIN/TRIAMCIN 15 GM CREAM 15 GM TUBE TP SCH ×2 (09:00→20:37)
[2019-01-04] MEDS: THERAHONEY GEL 1.5 OZ TUBE TP SCH ×6 (09:00→20:37)
[2019-01-04] MEDS: GABAPENTIN 250 MG/5 ML GT SCH ×3 (09:44→16:49)
[2019-01-04] MEDS: CALCIUM CARBONATE 500 MG TAB.CHEW GT SCH ×3 (09:44→16:49)
[2019-01-04] MEDS: CALCITRIOL 0.25 MCG CAPSULE PO SCH (09:44)
[2019-01-04] MEDS: ACIDOPHILUS/BULGARICUS 1 EACH TAB.CHEW GT SCH ×3 (09:44→16:49)
[2019-01-04] MEDS: ASCORBIC ACID 500 MG TABLET GT SCH ×2 (09:44→16:49)
[2019-01-04] MEDS: BACLOFEN (10 MG) 10 MG TABLET GT SCH ×4 (09:44→20:31)
[2019-01-04] MEDS: METHADONE HCL 10 MG TABLET GT SCH ×2 (09:44→20:31)
[2019-01-04] MEDS: FAMOTIDINE (20 MG) 20 MG TABLET GT SCH ×2 (09:44→20:32)
[2019-01-04] MEDS: HYDROCODONE/APAP 5/325MG 1 EACH TABLET GT SCH ×2 (09:44→20:32)
[2019-01-04] MEDS: PROSTAT (PYXIS) 30 ML UDC GT SCH ×3 (09:44→16:49)
[2019-01-04] MEDS: ESCITALOPRAM OXALATE (10 MG) 10 MG TABLET GT SCH (09:44)
[2019-01-04] MEDS: MULTIVIT W/MINERALS 1 TAB TABLET GT SCH (09:44)
[2019-01-04] MEDS: ZINC SULFATE 220 MG CAPSULE GT SCH (20:32)
[2019-01-04] MEDS: ENOXAPARIN SODIUM 40 MG/0.4 ML DISP.SYRIN SQ SCH (20:32)
[2019-01-04] MEDS: MAGNESIUM HYDROXIDE 30 ML UDC GT PRN (20:33)
[2019-01-04 20:48] VITALS: BP 119/80
[2019-01-04] MEDS: POLYETHYLENE GLYCOL 3350 17 GM POWD.PACK GT SCH (21:03)
[2019-01-04] MEDS: ATORVASTATIN 10 MG TABLET GT SCH (21:03)
[2019-01-05] MEDS: IPRATROPIUM NEB FS 0.5 MG/2.5 ML AMPUL.NEB NEB SCH ×4 (01:49→19:27)
[2019-01-05] MEDS: SUCRALFATE 1 G/10 ML UDC GT SCH ×4 (05:30→20:18)
[2019-01-05 08:00] VITALS: BP 111/75
[2019-01-05] MEDS: HYDROGEN PEROXIDE 480 ML BOTTLE TP SCH ×2 (09:00→20:20)
[2019-01-05] MEDS: BACLOFEN (10 MG) 10 MG TABLET GT SCH ×4 (09:40→20:18)
[2019-01-05] MEDS: ESCITALOPRAM OXALATE (10 MG) 10 MG TABLET GT SCH (09:40)
[2019-01-05] MEDS: ACIDOPHILUS/BULGARICUS 1 EACH TAB.CHEW GT SCH ×3 (09:40→17:08)
[2019-01-05] MEDS: GABAPENTIN 250 MG/5 ML GT SCH ×3 (09:40→17:08)
[2019-01-05] MEDS: PROSTAT (PYXIS) 30 ML UDC GT SCH ×3 (09:41→17:08)
[2019-01-05] MEDS: FAMOTIDINE (20 MG) 20 MG TABLET GT SCH ×2 (09:41→20:20)
[2019-01-05] MEDS: CALCIUM CARBONATE 500 MG TAB.CHEW GT SCH ×3 (09:42→17:08)
[2019-01-05] MEDS: ASCORBIC ACID 500 MG TABLET GT SCH ×2 (09:42→17:08)
[2019-01-05] MEDS: MULTIVIT W/MINERALS 1 TAB TABLET GT SCH (09:42)
[2019-01-05] MEDS: CALCITRIOL 0.25 MCG CAPSULE PO SCH (09:42)
[2019-01-05] MEDS: METHADONE HCL 10 MG TABLET GT SCH ×2 (09:49→20:19)
[2019-01-05] MEDS: HYDROCODONE/APAP 5/325MG 1 EACH TABLET GT SCH ×2 (12:30→20:20)
[2019-01-05] MEDS: THERAHONEY GEL 1.5 OZ TUBE TP SCH ×6 (13:30→20:20)
[2019-01-05] MEDS: NYSTATIN/TRIAMCIN 15 GM CREAM 15 GM TUBE TP SCH ×2 (13:30→20:20)
--- NOTE | 2019-01-05 18:10 | NUR ---
Asked SOCIOLOGY FACULTY MEMBER Diana if she wants to reculture urine because according to infection control nurse, isolation cannot be discontinue unless there is one negative culture. SOCIOLOGY FACULTY MEMBER Diana said not to reculture urine, she said "he will grow different bacteria, keep him on isolation". Endorsed. Contact isolation observed.
[2019-01-05 20:00] VITALS: BP 100/58
[2019-01-05] MEDS: ENOXAPARIN SODIUM 40 MG/0.4 ML DISP.SYRIN SQ SCH (20:20)
[2019-01-05] MEDS: ZINC SULFATE 220 MG CAPSULE GT SCH (20:20)
[2019-01-05] MEDS: POLYETHYLENE GLYCOL 3350 17 GM POWD.PACK GT SCH (21:15)
[2019-01-05] MEDS: ATORVASTATIN 10 MG TABLET GT SCH (21:15)
[2019-01-06] MEDS: IPRATROPIUM NEB FS 0.5 MG/2.5 ML AMPUL.NEB NEB SCH ×4 (01:28→19:29)
[2019-01-06] MEDS: SUCRALFATE 1 G/10 ML UDC GT SCH ×4 (05:35→20:30)
[2019-01-06 07:26] VITALS: BP 132/74
[2019-01-06] MEDS: BACLOFEN (10 MG) 10 MG TABLET GT SCH ×4 (08:53→21:41)
[2019-01-06] MEDS: GABAPENTIN 250 MG/5 ML GT SCH ×3 (08:53→16:30)
[2019-01-06] MEDS: METHADONE HCL 10 MG TABLET GT SCH ×2 (08:53→21:42)
[2019-01-06] MEDS: ACIDOPHILUS/BULGARICUS 1 EACH TAB.CHEW GT SCH ×3 (08:53→16:31)
[2019-01-06] MEDS: ESCITALOPRAM OXALATE (10 MG) 10 MG TABLET GT SCH (08:53)
[2019-01-06] MEDS: PROSTAT (PYXIS) 30 ML UDC GT SCH ×3 (08:56→16:31)
[2019-01-06] MEDS: FAMOTIDINE (20 MG) 20 MG TABLET GT SCH ×2 (08:56→21:43)
[2019-01-06] MEDS: MULTIVIT W/MINERALS 1 TAB TABLET GT SCH (08:56)
[2019-01-06] MEDS: CALCITRIOL 0.25 MCG CAPSULE PO SCH (08:56)
[2019-01-06] MEDS: ASCORBIC ACID 500 MG TABLET GT SCH ×2 (08:56→16:31)
[2019-01-06] MEDS: CALCIUM CARBONATE 500 MG TAB.CHEW GT SCH ×3 (08:56→16:31)
[2019-01-06] MEDS: HYDROCODONE/APAP 5/325MG 1 EACH TABLET GT SCH ×2 (08:56→21:42)
[2019-01-06] MEDS: THERAHONEY GEL 1.5 OZ TUBE TP SCH ×6 (09:00→21:43)
[2019-01-06] MEDS: NYSTATIN/TRIAMCIN 15 GM CREAM 15 GM TUBE TP SCH ×2 (09:00→21:43)
[2019-01-06] MEDS: HYDROGEN PEROXIDE 480 ML BOTTLE TP SCH ×2 (09:00→21:01)
[2019-01-06 20:35] VITALS: BP 134/82
[2019-01-06] MEDS: ENOXAPARIN SODIUM 40 MG/0.4 ML DISP.SYRIN SQ SCH (21:43)
[2019-01-06] MEDS: ZINC SULFATE 220 MG CAPSULE GT SCH (21:43)
[2019-01-06] MEDS: ATORVASTATIN 10 MG TABLET GT SCH (21:44)
[2019-01-06] MEDS: POLYETHYLENE GLYCOL 3350 17 GM POWD.PACK GT SCH (21:44)
[2019-01-07] MEDS: IPRATROPIUM NEB FS 0.5 MG/2.5 ML AMPUL.NEB NEB SCH ×4 (01:37→19:02)
[2019-01-07] MEDS: SUCRALFATE 1 G/10 ML UDC GT SCH ×4 (05:59→20:54)
--- NOTE | 2019-01-07 06:01 | NUR ---
RT Patient was received on 28% cool aerosol.Placed patient on vent during midnight and back to cool aerosol at 0600 per MD order.Patient stable throughout the shift. Trach tube patent and secured.Will continue to monitor. Addendum: 01/07/19 at 0602 by ROM ARAIZA RT Amended: Links added.
[2019-01-07] MEDS: HYDROGEN PEROXIDE 480 ML BOTTLE TP SCH ×2 (08:00→21:03)
[2019-01-07] MEDS: BACLOFEN (10 MG) 10 MG TABLET GT SCH ×4 (08:48→20:54)
[2019-01-07] MEDS: GABAPENTIN 250 MG/5 ML GT SCH ×3 (08:48→17:31)
[2019-01-07] MEDS: ACIDOPHILUS/BULGARICUS 1 EACH TAB.CHEW GT SCH ×3 (08:48→17:31)
[2019-01-07] MEDS: ESCITALOPRAM OXALATE (10 MG) 10 MG TABLET GT SCH (08:48)
[2019-01-07] MEDS: FAMOTIDINE (20 MG) 20 MG TABLET GT SCH ×2 (08:49→20:54)
[2019-01-07] MEDS: METHADONE HCL 10 MG TABLET GT SCH ×2 (08:49→21:59)
[2019-01-07] MEDS: MULTIVIT W/MINERALS 1 TAB TABLET GT SCH (08:49)
[2019-01-07] MEDS: CALCIUM CARBONATE 500 MG TAB.CHEW GT SCH ×3 (08:49→17:31)
[2019-01-07] MEDS: ASCORBIC ACID 500 MG TABLET GT SCH ×2 (08:49→17:30)
[2019-01-07] MEDS: CALCITRIOL 0.25 MCG CAPSULE PO SCH (08:49)
[2019-01-07] MEDS: PROSTAT (PYXIS) 30 ML UDC GT SCH ×3 (08:49→17:31)
[2019-01-07 10:50] VITALS: BP 126/72
--- NOTE | 2019-01-07 11:33 | NUR ---
RAVI contacted the pt.s responsible green party/DPOA Vilma Marley [phone] to invite them to the next IDT Plan of Care Conference taking place 01/11/19 from 12:30-1:30pm in the activities room. Per Vilma, she will let me know later in the week if her schedule permits her to attend.
[2019-01-07] MEDS: HYDROCODONE/APAP 5/325MG 1 EACH TABLET GT SCH ×2 (11:40→20:54)
--- NOTE | 2019-01-07 11:50 | NUR ---
Seen by Dr Rafiq Diza. He ordered to apply Hydrogel and Mepilex on left upper midback reopened wound. Pt aware of new order.
[2019-01-07] MEDS: NYSTATIN/TRIAMCIN 15 GM CREAM 15 GM TUBE TP SCH ×2 (12:40→21:38)
[2019-01-07] MEDS: THERAHONEY GEL 1.5 OZ TUBE TP SCH ×6 (12:40→21:38)
[2019-01-07 19:42] VITALS: BP 122/72
[2019-01-07] MEDS: ZINC SULFATE 220 MG CAPSULE GT SCH (20:54)
[2019-01-07] MEDS: ENOXAPARIN SODIUM 40 MG/0.4 ML DISP.SYRIN SQ SCH (20:55)
[2019-01-07] MEDS: HYDROGEL DRESSING 90 GM TUBE TP SCH (21:38)
[2019-01-07] MEDS: POLYETHYLENE GLYCOL 3350 17 GM POWD.PACK GT SCH (21:38)
[2019-01-07] MEDS: ATORVASTATIN 10 MG TABLET GT SCH (21:38)
[2019-01-08] MEDS: IPRATROPIUM NEB FS 0.5 MG/2.5 ML AMPUL.NEB NEB SCH ×5 (00:41→23:03)
[2019-01-08] MEDS: SUCRALFATE 1 G/10 ML UDC GT SCH ×4 (05:53→20:30)
[2019-01-08 07:58] VITALS: BP 136/70
[2019-01-08] MEDS: NYSTATIN/TRIAMCIN 15 GM CREAM 15 GM TUBE TP SCH ×2 (09:00→21:50)
[2019-01-08] MEDS: HYDROGEN PEROXIDE 480 ML BOTTLE TP SCH ×2 (09:00→21:00)
[2019-01-08] MEDS: THERAHONEY GEL 1.5 OZ TUBE TP SCH ×6 (09:00→21:50)
[2019-01-08] MEDS: ESCITALOPRAM OXALATE (10 MG) 10 MG TABLET GT SCH (09:09)
[2019-01-08] MEDS: FAMOTIDINE (20 MG) 20 MG TABLET GT SCH ×2 (09:09→21:49)
[2019-01-08] MEDS: ACIDOPHILUS/BULGARICUS 1 EACH TAB.CHEW GT SCH ×3 (09:09→17:19)
[2019-01-08] MEDS: BACLOFEN (10 MG) 10 MG TABLET GT SCH ×4 (09:09→21:49)
[2019-01-08] MEDS: PROSTAT (PYXIS) 30 ML UDC GT SCH ×3 (09:14→17:19)
[2019-01-08] MEDS: MULTIVIT W/MINERALS 1 TAB TABLET GT SCH (09:17)
[2019-01-08] MEDS: CALCIUM CARBONATE 500 MG TAB.CHEW GT SCH ×3 (09:17→17:19)
[2019-01-08] MEDS: CALCITRIOL 0.25 MCG CAPSULE PO SCH (09:17)
[2019-01-08] MEDS: HYDROGEL DRESSING 90 GM TUBE TP SCH ×2 (09:17→21:50)
[2019-01-08] MEDS: ASCORBIC ACID 500 MG TABLET GT SCH ×2 (09:17→17:19)
[2019-01-08] MEDS: METHADONE HCL 10 MG TABLET GT SCH ×2 (09:18→21:49)
[2019-01-08] MEDS: HYDROCODONE/APAP 5/325MG 1 EACH TABLET GT SCH ×2 (09:20→10:20)
[2019-01-08] MEDS: GABAPENTIN 250 MG/5 ML GT SCH ×3 (09:24→17:19)
--- NOTE | 2019-01-08 15:23 | NUR ---
PATIENT IS AWAKE AND ALERT. MONTHLY TRACH CHANGE DONE PER RT PROTOCOL WITH NEW SHILEY 8 CUFFED. BREATH SOUNDS COARSE RHONCHI BILATERAL AND SYMMETRICAL CHEST RISE NOTED. PT PLACED BACK ON COOL AEROSOL. NO RESPIRATORY DISTRESS NOTED. Addendum: 01/09/19 at 1103 by JAYLENE STORY RT Amended: Links added.
[2019-01-08 20:20] VITALS: BP 114/67
[2019-01-08] MEDS: ZINC SULFATE 220 MG CAPSULE GT SCH (21:49)
[2019-01-08] MEDS: ATORVASTATIN 10 MG TABLET GT SCH (21:50)
[2019-01-08] MEDS: ENOXAPARIN SODIUM 40 MG/0.4 ML DISP.SYRIN SQ SCH (21:50)
[2019-01-08] MEDS: POLYETHYLENE GLYCOL 3350 17 GM POWD.PACK GT SCH (21:50)
--- NOTE | 2019-01-09 05:26 | NUR ---
PT TAKEN OFF MECH VENT AND PLACED ON COOL AEROSOL 28%, 5L PER MD ORDER. NO DISTRESS. NOTIFIED BRO SANCHEZ.
[2019-01-09] MEDS: SUCRALFATE 1 G/10 ML UDC GT SCH ×4 (05:54→20:09)
[2019-01-09] MEDS: IPRATROPIUM NEB FS 0.5 MG/2.5 ML AMPUL.NEB NEB SCH ×3 (07:44→19:23)
[2019-01-09 08:00] VITALS: BP 115/62
[2019-01-09] MEDS: GABAPENTIN 250 MG/5 ML GT SCH ×3 (08:32→17:33)
[2019-01-09] MEDS: BACLOFEN (10 MG) 10 MG TABLET GT SCH ×4 (08:43→21:13)
[2019-01-09] MEDS: ESCITALOPRAM OXALATE (10 MG) 10 MG TABLET GT SCH (08:43)
[2019-01-09] MEDS: ACIDOPHILUS/BULGARICUS 1 EACH TAB.CHEW GT SCH ×3 (08:43→17:33)
[2019-01-09] MEDS: METHADONE HCL 10 MG TABLET GT SCH ×2 (08:44→20:11)
[2019-01-09] MEDS: PROSTAT (PYXIS) 30 ML UDC GT SCH ×3 (08:45→17:33)
[2019-01-09] MEDS: CALCIUM CARBONATE 500 MG TAB.CHEW GT SCH ×3 (08:45→17:33)
[2019-01-09] MEDS: CALCITRIOL 0.25 MCG CAPSULE PO SCH (08:45)
[2019-01-09] MEDS: ASCORBIC ACID 500 MG TABLET GT SCH ×2 (08:45→17:33)
[2019-01-09] MEDS: MULTIVIT W/MINERALS 1 TAB TABLET GT SCH (08:45)
[2019-01-09] MEDS: FAMOTIDINE (20 MG) 20 MG TABLET GT SCH ×2 (08:45→20:11)
[2019-01-09] MEDS: HYDROCODONE/APAP 5/325MG 1 EACH TABLET GT SCH ×2 (08:45→20:11)
[2019-01-09] MEDS: NYSTATIN/TRIAMCIN 15 GM CREAM 15 GM TUBE TP SCH ×2 (08:46→20:16)
[2019-01-09] MEDS: THERAHONEY GEL 1.5 OZ TUBE TP SCH ×6 (08:46→20:17)
[2019-01-09] MEDS: HYDROGEL DRESSING 90 GM TUBE TP SCH ×2 (08:46→20:16)
[2019-01-09] MEDS: HYDROGEN PEROXIDE 480 ML BOTTLE TP SCH ×2 (09:00→19:23)
--- NOTE | 2019-01-09 19:33 | NUR ---
RT NOTE: RECEIVED TRACH PT ON COOL AEROSOL. WILL PLACE PT ON VENT AT MIDNIGHT PER MD ORDER. TRACH IS PATENT AND SECURED. TRACH CARE DONE. METAL ROASTER DONE. Q6 BREATHING TX GIVEN WITH NO ADVERSE REACTION NOTED. SX DONE PRN. NO RESP DISTRESS AT THIS TIME. WILL CONT TO MONITOR PT. Addendum: 01/10/19 at 0258 by SOBIA VILLA RT Amended: Links added.
[2019-01-09 20:09] VITALS: BP 101/55
[2019-01-09] MEDS: ZINC SULFATE 220 MG CAPSULE GT SCH (20:11)
[2019-01-09] MEDS: ENOXAPARIN SODIUM 40 MG/0.4 ML DISP.SYRIN SQ SCH (20:16)
[2019-01-09] MEDS: ATORVASTATIN 10 MG TABLET GT SCH (22:09)
[2019-01-09] MEDS: POLYETHYLENE GLYCOL 3350 17 GM POWD.PACK GT SCH (22:09)
[2019-01-10] MEDS: IPRATROPIUM NEB FS 0.5 MG/2.5 ML AMPUL.NEB NEB SCH ×4 (01:10→19:37)
[2019-01-10] MEDS: SUCRALFATE 1 G/10 ML UDC GT SCH ×4 (05:45→21:16)
[2019-01-10 07:46] VITALS: BP 120/69
[2019-01-10] MEDS: HYDROGEN PEROXIDE 480 ML BOTTLE TP SCH ×2 (07:46→19:37)
[2019-01-10] MEDS: NYSTATIN/TRIAMCIN 15 GM CREAM 15 GM TUBE TP SCH ×2 (09:00→21:55)
[2019-01-10] MEDS: THERAHONEY GEL 1.5 OZ TUBE TP SCH ×6 (09:00→21:56)
[2019-01-10] MEDS: HYDROGEL DRESSING 90 GM TUBE TP SCH ×2 (09:00→21:55)
[2019-01-10] MEDS: METHADONE HCL 10 MG TABLET GT SCH ×2 (09:48→21:55)
[2019-01-10] MEDS: BACLOFEN (10 MG) 10 MG TABLET GT SCH ×4 (09:48→21:16)
[2019-01-10] MEDS: ESCITALOPRAM OXALATE (10 MG) 10 MG TABLET GT SCH (09:48)
[2019-01-10] MEDS: ACIDOPHILUS/BULGARICUS 1 EACH TAB.CHEW GT SCH ×3 (09:48→17:37)
[2019-01-10] MEDS: GABAPENTIN 250 MG/5 ML GT SCH ×3 (09:48→17:37)
[2019-01-10] MEDS: HYDROCODONE/APAP 5/325MG 1 EACH TABLET GT SCH ×2 (09:49→21:16)
[2019-01-10] MEDS: PROSTAT (PYXIS) 30 ML UDC GT SCH ×3 (09:49→17:37)
[2019-01-10] MEDS: FAMOTIDINE (20 MG) 20 MG TABLET GT SCH ×2 (09:49→21:17)
[2019-01-10] MEDS: MULTIVIT W/MINERALS 1 TAB TABLET GT SCH (09:49)
[2019-01-10] MEDS: CALCITRIOL 0.25 MCG CAPSULE PO SCH (09:49)
[2019-01-10] MEDS: CALCIUM CARBONATE 500 MG TAB.CHEW GT SCH ×3 (09:49→17:37)
[2019-01-10] MEDS: ASCORBIC ACID 500 MG TABLET GT SCH ×2 (09:49→17:37)
--- NOTE | 2019-01-10 16:21 | NUR ---
RAVI emailed the pt.'s sister in Law/DPOAVilma to [email or web address] to remind her of 01/11/19 12:30pm IDT Plan of Care Conference as she requested
[2019-01-10 20:23] VITALS: BP 111/69
[2019-01-10] MEDS: ZINC SULFATE 220 MG CAPSULE GT SCH (21:17)
[2019-01-10] MEDS: ENOXAPARIN SODIUM 40 MG/0.4 ML DISP.SYRIN SQ SCH (21:17)
[2019-01-10] MEDS: POLYETHYLENE GLYCOL 3350 17 GM POWD.PACK GT SCH (21:17)
[2019-01-10] MEDS: ATORVASTATIN 10 MG TABLET GT SCH (21:17)
[2019-01-11] MEDS: IPRATROPIUM NEB FS 0.5 MG/2.5 ML AMPUL.NEB NEB SCH ×4 (01:34→19:29)
[2019-01-11] MEDS: SUCRALFATE 1 G/10 ML UDC GT SCH ×4 (05:50→21:19)
[2019-01-11 08:00] VITALS: BP 115/61
[2019-01-11] MEDS: HYDROGEN PEROXIDE 480 ML BOTTLE TP SCH ×2 (09:00→21:15)
[2019-01-11] MEDS: ESCITALOPRAM OXALATE (10 MG) 10 MG TABLET GT SCH (09:20)
[2019-01-11] MEDS: GABAPENTIN 250 MG/5 ML GT SCH ×3 (09:20→17:00)
[2019-01-11] MEDS: ACIDOPHILUS/BULGARICUS 1 EACH TAB.CHEW GT SCH ×3 (09:20→17:00)
[2019-01-11] MEDS: BACLOFEN (10 MG) 10 MG TABLET GT SCH ×4 (09:20→21:19)
[2019-01-11] MEDS: FAMOTIDINE (20 MG) 20 MG TABLET GT SCH ×2 (09:21→21:20)
[2019-01-11] MEDS: HYDROCODONE/APAP 5/325MG 1 EACH TABLET GT SCH ×2 (09:21→21:20)
[2019-01-11] MEDS: METHADONE HCL 10 MG TABLET GT SCH ×2 (09:21→21:58)
[2019-01-11] MEDS: PROSTAT (PYXIS) 30 ML UDC GT SCH ×3 (09:21→17:00)
[2019-01-11] MEDS: ASCORBIC ACID 500 MG TABLET GT SCH ×2 (09:22→17:00)
[2019-01-11] MEDS: CALCIUM CARBONATE 500 MG TAB.CHEW GT SCH ×3 (09:22→17:00)
[2019-01-11] MEDS: CALCITRIOL 0.25 MCG CAPSULE PO SCH (09:22)
[2019-01-11] MEDS: HYDROGEL DRESSING 90 GM TUBE TP SCH ×2 (09:22→21:56)
[2019-01-11] MEDS: NYSTATIN/TRIAMCIN 15 GM CREAM 15 GM TUBE TP SCH ×2 (09:22→21:56)
[2019-01-11] MEDS: MULTIVIT W/MINERALS 1 TAB TABLET GT SCH (09:22)
[2019-01-11] MEDS: THERAHONEY GEL 1.5 OZ TUBE TP SCH ×6 (09:23→21:56)
--- NOTE | 2019-01-11 15:02 | NUR ---
INTERDISCIPLINARY PLAN OF CARE CONFERENCE took place today. The patients responsible libertarian/Vilma Brennansley [phone] was not able to attend or participate via phone conference. Charge nurse discussed pt. is stable, Nephostomy tube change 12/18/18; sacral wound Tx of Saima will be continued; 01/07 Hydrogel Tx for L Upper Mid Back. Dr. Ugarte and Interdisciplinary team discussed the plan of care in detail. Current orders as well as treatments and medications were reviewed. Please see other disciplines IDT notes for further details.
[2019-01-11 19:44] VITALS: BP 105/55
[2019-01-11] MEDS: ENOXAPARIN SODIUM 40 MG/0.4 ML DISP.SYRIN SQ SCH (21:20)
[2019-01-11] MEDS: ZINC SULFATE 220 MG CAPSULE GT SCH (21:20)
[2019-01-11] MEDS: POLYETHYLENE GLYCOL 3350 17 GM POWD.PACK GT SCH (21:21)
[2019-01-11] MEDS: ATORVASTATIN 10 MG TABLET GT SCH (21:21)
[2019-01-12] MEDS: IPRATROPIUM NEB FS 0.5 MG/2.5 ML AMPUL.NEB NEB SCH ×4 (01:38→19:32)
[2019-01-12] MEDS: SUCRALFATE 1 G/10 ML UDC GT SCH ×4 (05:44→20:46)
[2019-01-12 07:42] VITALS: BP 108/67
[2019-01-12] MEDS: HYDROGEN PEROXIDE 480 ML BOTTLE TP SCH ×2 (08:05→20:47)
[2019-01-12] MEDS: HYDROGEL DRESSING 90 GM TUBE TP SCH ×2 (09:00→20:47)
[2019-01-12] MEDS: THERAHONEY GEL 1.5 OZ TUBE TP SCH ×6 (09:00→20:48)
[2019-01-12] MEDS: NYSTATIN/TRIAMCIN 15 GM CREAM 15 GM TUBE TP SCH ×2 (09:00→20:48)
[2019-01-12] MEDS: ESCITALOPRAM OXALATE (10 MG) 10 MG TABLET GT SCH (09:32)
[2019-01-12] MEDS: ACIDOPHILUS/BULGARICUS 1 EACH TAB.CHEW GT SCH ×3 (09:32→16:59)
[2019-01-12] MEDS: FAMOTIDINE (20 MG) 20 MG TABLET GT SCH ×2 (09:33→20:46)
[2019-01-12] MEDS: PROSTAT (PYXIS) 30 ML UDC GT SCH ×3 (09:33→16:59)
[2019-01-12] MEDS: BACLOFEN (10 MG) 10 MG TABLET GT SCH ×4 (09:33→20:46)
[2019-01-12] MEDS: CALCIUM CARBONATE 500 MG TAB.CHEW GT SCH ×3 (09:34→17:00)
[2019-01-12] MEDS: CALCITRIOL 0.25 MCG CAPSULE PO SCH (09:34)
[2019-01-12] MEDS: ASCORBIC ACID 500 MG TABLET GT SCH ×2 (09:34→17:00)
[2019-01-12] MEDS: GABAPENTIN 250 MG/5 ML GT SCH ×3 (09:34→16:59)
[2019-01-12] MEDS: METHADONE HCL 10 MG TABLET GT SCH ×2 (09:39→20:46)
[2019-01-12] MEDS: MULTIVIT W/MINERALS 1 TAB TABLET GT SCH (09:39)
[2019-01-12] MEDS: HYDROCODONE/APAP 5/325MG 1 EACH TABLET GT SCH ×2 (09:39→20:46)
[2019-01-12 20:00] VITALS: BP 97/63
[2019-01-12] MEDS: ZINC SULFATE 220 MG CAPSULE GT SCH (20:46)
[2019-01-12] MEDS: ENOXAPARIN SODIUM 40 MG/0.4 ML DISP.SYRIN SQ SCH (20:47)
[2019-01-12] MEDS: ATORVASTATIN 10 MG TABLET GT SCH (22:35)
[2019-01-12] MEDS: POLYETHYLENE GLYCOL 3350 17 GM POWD.PACK GT SCH (22:35)
[2019-01-13] MEDS: IPRATROPIUM NEB FS 0.5 MG/2.5 ML AMPUL.NEB NEB SCH ×4 (00:59→19:42)
--- NOTE | 2019-01-13 05:38 | NUR ---
RT NOTE PATIENT REQUESTED TO BE PLACED BACK ON COOL AEROSOL. Addendum: 01/13/19 at 0539 by CARMEN REED RT Amended: Links added.
[2019-01-13] MEDS: SUCRALFATE 1 G/10 ML UDC GT SCH ×4 (06:35→21:16)
[2019-01-13 08:08] VITALS: BP 103/61
[2019-01-13] MEDS: THERAHONEY GEL 1.5 OZ TUBE TP SCH ×6 (09:00→21:22)
[2019-01-13] MEDS: HYDROGEL DRESSING 90 GM TUBE TP SCH ×2 (09:00→21:21)
[2019-01-13] MEDS: HYDROGEN PEROXIDE 480 ML BOTTLE TP SCH ×2 (09:00→19:42)
[2019-01-13] MEDS: NYSTATIN/TRIAMCIN 15 GM CREAM 15 GM TUBE TP SCH ×2 (09:00→21:21)
[2019-01-13] MEDS: ACIDOPHILUS/BULGARICUS 1 EACH TAB.CHEW GT SCH ×3 (09:15→16:41)
[2019-01-13] MEDS: GABAPENTIN 250 MG/5 ML GT SCH ×3 (09:15→16:41)
[2019-01-13] MEDS: ESCITALOPRAM OXALATE (10 MG) 10 MG TABLET GT SCH (09:16)
[2019-01-13] MEDS: CALCIUM CARBONATE 500 MG TAB.CHEW GT SCH ×3 (09:16→16:42)
[2019-01-13] MEDS: FAMOTIDINE (20 MG) 20 MG TABLET GT SCH ×2 (09:16→21:20)
[2019-01-13] MEDS: ASCORBIC ACID 500 MG TABLET GT SCH ×2 (09:16→16:42)
[2019-01-13] MEDS: PROSTAT (PYXIS) 30 ML UDC GT SCH ×3 (09:16→16:41)
[2019-01-13] MEDS: BACLOFEN (10 MG) 10 MG TABLET GT SCH ×4 (09:16→21:17)
[2019-01-13] MEDS: CALCITRIOL 0.25 MCG CAPSULE PO SCH (09:17)
[2019-01-13] MEDS: METHADONE HCL 10 MG TABLET GT SCH ×2 (09:20→21:24)
[2019-01-13] MEDS: HYDROCODONE/APAP 5/325MG 1 EACH TABLET GT SCH ×2 (09:21→21:20)
[2019-01-13] MEDS: MULTIVIT W/MINERALS 1 TAB TABLET GT SCH (09:21)
[2019-01-13] MEDS: MAGNESIUM HYDROXIDE 30 ML UDC GT PRN (12:00)
--- NOTE | 2019-01-13 16:37 | NUR ---
Seen and examined by Dr. Seaman no new orders.
--- NOTE | 2019-01-13 19:53 | NUR ---
RT NOTE: RECEIVED TRACH PT ON COOL AEROSOL. WILL PLACE PT ON VENT AT MIDNIGHT PER MD ORDER. TRACH IS PATENT AND SECURED. TRACH CARE DONE. Q6 BREATHING TX GIVEN WITH NO ADVERSE REACTION NOTED. SX DONE PRN. NO RESP DISTRESS AT THIS TIME. WILL CONT TO MONITOR PT. Addendum: 01/14/19 at 0249 by SOBIA VILLA RT Amended: Links added.
[2019-01-13 20:25] VITALS: BP 104/66
[2019-01-13] MEDS: ZINC SULFATE 220 MG CAPSULE GT SCH (21:20)
[2019-01-13] MEDS: ENOXAPARIN SODIUM 40 MG/0.4 ML DISP.SYRIN SQ SCH (21:21)
[2019-01-13] MEDS: ATORVASTATIN 10 MG TABLET GT SCH (21:22)
[2019-01-13] MEDS: POLYETHYLENE GLYCOL 3350 17 GM POWD.PACK GT SCH (21:23)
[2019-01-14] MEDS: IPRATROPIUM NEB FS 0.5 MG/2.5 ML AMPUL.NEB NEB SCH ×4 (01:34→19:32)
[2019-01-14] MEDS: SUCRALFATE 1 G/10 ML UDC GT SCH ×4 (05:44→20:31)
[2019-01-14 07:55] VITALS: BP 108/63
[2019-01-14] MEDS: NYSTATIN/TRIAMCIN 15 GM CREAM 15 GM TUBE TP SCH ×2 (09:00→21:21)
[2019-01-14] MEDS: HYDROGEN PEROXIDE 480 ML BOTTLE TP SCH ×2 (09:00→19:32)
[2019-01-14] MEDS: THERAHONEY GEL 1.5 OZ TUBE TP SCH ×6 (09:00→21:22)
[2019-01-14] MEDS: HYDROGEL DRESSING 90 GM TUBE TP SCH ×2 (09:00→21:21)
[2019-01-14] MEDS: BACLOFEN (10 MG) 10 MG TABLET GT SCH ×4 (09:34→20:31)
[2019-01-14] MEDS: ACIDOPHILUS/BULGARICUS 1 EACH TAB.CHEW GT SCH ×3 (09:34→17:54)
[2019-01-14] MEDS: GABAPENTIN 250 MG/5 ML GT SCH ×3 (09:34→17:54)
[2019-01-14] MEDS: ESCITALOPRAM OXALATE (10 MG) 10 MG TABLET GT SCH (09:34)
[2019-01-14] MEDS: METHADONE HCL 10 MG TABLET GT SCH ×2 (09:39→21:59)
[2019-01-14] MEDS: CALCIUM CARBONATE 500 MG TAB.CHEW GT SCH ×3 (09:40→17:54)
[2019-01-14] MEDS: MULTIVIT W/MINERALS 1 TAB TABLET GT SCH (09:40)
[2019-01-14] MEDS: HYDROCODONE/APAP 5/325MG 1 EACH TABLET GT SCH ×2 (09:40→20:32)
[2019-01-14] MEDS: ASCORBIC ACID 500 MG TABLET GT SCH ×2 (09:40→17:54)
[2019-01-14] MEDS: CALCITRIOL 0.25 MCG CAPSULE PO SCH (09:40)
[2019-01-14] MEDS: PROSTAT (PYXIS) 30 ML UDC GT SCH ×3 (09:40→17:54)
[2019-01-14] MEDS: FAMOTIDINE (20 MG) 20 MG TABLET GT SCH ×2 (09:40→20:32)
[2019-01-14 20:15] VITALS: BP 101/64
[2019-01-14] MEDS: ZINC SULFATE 220 MG CAPSULE GT SCH (20:32)
[2019-01-14] MEDS: ENOXAPARIN SODIUM 40 MG/0.4 ML DISP.SYRIN SQ SCH (20:33)
[2019-01-14] MEDS: ATORVASTATIN 10 MG TABLET GT SCH (21:22)
[2019-01-14] MEDS: POLYETHYLENE GLYCOL 3350 17 GM POWD.PACK GT SCH (21:22)
[2019-01-15] MEDS: IPRATROPIUM NEB FS 0.5 MG/2.5 ML AMPUL.NEB NEB SCH ×4 (01:13→20:22)
[2019-01-15] MEDS: SUCRALFATE 1 G/10 ML UDC GT SCH ×4 (05:54→20:37)
[2019-01-15 07:37] VITALS: BP 110/69
[2019-01-15] MEDS: HYDROGEN PEROXIDE 480 ML BOTTLE TP SCH ×2 (08:27→20:22)
[2019-01-15] MEDS: GABAPENTIN 250 MG/5 ML GT SCH ×3 (09:23→16:59)
[2019-01-15] MEDS: ESCITALOPRAM OXALATE (10 MG) 10 MG TABLET GT SCH (09:23)
[2019-01-15] MEDS: BACLOFEN (10 MG) 10 MG TABLET GT SCH ×4 (09:23→20:37)
[2019-01-15] MEDS: ACIDOPHILUS/BULGARICUS 1 EACH TAB.CHEW GT SCH ×3 (09:23→16:59)
[2019-01-15] MEDS: METHADONE HCL 10 MG TABLET GT SCH ×2 (09:24→21:58)
[2019-01-15] MEDS: HYDROCODONE/APAP 5/325MG 1 EACH TABLET GT SCH ×2 (09:24→20:38)
[2019-01-15] MEDS: NYSTATIN/TRIAMCIN 15 GM CREAM 15 GM TUBE TP SCH ×2 (09:25→21:18)
[2019-01-15] MEDS: PROSTAT (PYXIS) 30 ML UDC GT SCH ×3 (09:25→16:59)
[2019-01-15] MEDS: ASCORBIC ACID 500 MG TABLET GT SCH ×2 (09:25→16:59)
[2019-01-15] MEDS: FAMOTIDINE (20 MG) 20 MG TABLET GT SCH ×2 (09:25→20:38)
[2019-01-15] MEDS: MULTIVIT W/MINERALS 1 TAB TABLET GT SCH (09:25)
[2019-01-15] MEDS: HYDROGEL DRESSING 90 GM TUBE TP SCH ×2 (09:25→21:18)
[2019-01-15] MEDS: CALCITRIOL 0.25 MCG CAPSULE PO SCH (09:25)
[2019-01-15] MEDS: CALCIUM CARBONATE 500 MG TAB.CHEW GT SCH ×3 (09:25→16:59)
[2019-01-15] MEDS: THERAHONEY GEL 1.5 OZ TUBE TP SCH ×6 (09:26→21:18)
[2019-01-15 20:07] VITALS: BP 105/65
[2019-01-15] MEDS: ZINC SULFATE 220 MG CAPSULE GT SCH (20:38)
[2019-01-15] MEDS: ENOXAPARIN SODIUM 40 MG/0.4 ML DISP.SYRIN SQ SCH (20:38)
[2019-01-15] MEDS: ATORVASTATIN 10 MG TABLET GT SCH (21:18)
[2019-01-15] MEDS: POLYETHYLENE GLYCOL 3350 17 GM POWD.PACK GT SCH (21:18)
[2019-01-15] MEDS: NEOMY SULF/BACITRAC ZN/POLY 15 GM TUBE TP SCH (21:18)
[2019-01-16] MEDS: IPRATROPIUM NEB FS 0.5 MG/2.5 ML AMPUL.NEB NEB SCH ×4 (01:06→19:51)
[2019-01-16] MEDS: SUCRALFATE 1 G/10 ML UDC GT SCH ×4 (05:55→21:21)
[2019-01-16 07:40] VITALS: BP 126/69
[2019-01-16] MEDS: HYDROGEN PEROXIDE 480 ML BOTTLE TP SCH ×2 (07:46→20:24)
[2019-01-16] MEDS: ACIDOPHILUS/BULGARICUS 1 EACH TAB.CHEW GT SCH ×3 (09:22→16:49)
[2019-01-16] MEDS: BACLOFEN (10 MG) 10 MG TABLET GT SCH ×4 (09:22→21:21)
[2019-01-16] MEDS: GABAPENTIN 250 MG/5 ML GT SCH ×3 (09:22→16:49)
[2019-01-16] MEDS: ESCITALOPRAM OXALATE (10 MG) 10 MG TABLET GT SCH (09:22)
[2019-01-16] MEDS: MULTIVIT W/MINERALS 1 TAB TABLET GT SCH (09:23)
[2019-01-16] MEDS: HYDROCODONE/APAP 5/325MG 1 EACH TABLET GT SCH ×2 (09:23→21:24)
[2019-01-16] MEDS: METHADONE HCL 10 MG TABLET GT SCH ×2 (09:23→21:22)
[2019-01-16] MEDS: FAMOTIDINE (20 MG) 20 MG TABLET GT SCH ×2 (09:23→21:24)
[2019-01-16] MEDS: HYDROGEL DRESSING 90 GM TUBE TP SCH ×2 (09:23→21:53)
[2019-01-16] MEDS: PROSTAT (PYXIS) 30 ML UDC GT SCH ×3 (09:23→16:49)
[2019-01-16] MEDS: CALCITRIOL 0.25 MCG CAPSULE PO SCH (09:23)
[2019-01-16] MEDS: CALCIUM CARBONATE 500 MG TAB.CHEW GT SCH ×3 (09:23→16:49)
[2019-01-16] MEDS: ASCORBIC ACID 500 MG TABLET GT SCH ×2 (09:23→16:49)
[2019-01-16] MEDS: THERAHONEY GEL 1.5 OZ TUBE TP SCH ×6 (09:24→21:55)
[2019-01-16] MEDS: NYSTATIN/TRIAMCIN 15 GM CREAM 15 GM TUBE TP SCH ×2 (09:24→21:54)
[2019-01-16] MEDS: NEOMY SULF/BACITRAC ZN/POLY 15 GM TUBE TP SCH ×2 (09:24→21:54)
--- NOTE | 2019-01-16 13:41 | NUR ---
Seen and examined by Dr. Seaman and MERCHANT MARINER Peggy Hoffman NNO given.
[2019-01-16 20:10] VITALS: BP 111/68
[2019-01-16] MEDS: ATORVASTATIN 10 MG TABLET GT SCH (21:24)
[2019-01-16] MEDS: POLYETHYLENE GLYCOL 3350 17 GM POWD.PACK GT SCH (21:24)
[2019-01-16] MEDS: ZINC SULFATE 220 MG CAPSULE GT SCH (21:24)
[2019-01-16] MEDS: ENOXAPARIN SODIUM 40 MG/0.4 ML DISP.SYRIN SQ SCH (21:24)
--- NOTE | 2019-01-16 21:46 | NUR ---
PT RECEIVE STABLE ON C/A @ 28% FIO2, TRACH PATENT AND SECURED, BACK UP NENA AND NAIMA BAG IS AT BEDSIDE, WILL CONTINUE TO MONITOR Addendum: 01/16/19 at 2148 by YESICA CHEW RT Amended: Links added.
[2019-01-17] MEDS: IPRATROPIUM NEB FS 0.5 MG/2.5 ML AMPUL.NEB NEB SCH ×4 (01:53→19:36)
[2019-01-17] MEDS: SUCRALFATE 1 G/10 ML UDC GT SCH ×4 (06:13→20:12)
[2019-01-17 07:36] VITALS: BP 103/71
[2019-01-17] MEDS: HYDROGEN PEROXIDE 480 ML BOTTLE TP SCH ×2 (08:05→19:36)
[2019-01-17] MEDS: GABAPENTIN 250 MG/5 ML GT SCH ×3 (09:14→17:39)
[2019-01-17] MEDS: ESCITALOPRAM OXALATE (10 MG) 10 MG TABLET GT SCH (09:14)
[2019-01-17] MEDS: BACLOFEN (10 MG) 10 MG TABLET GT SCH ×4 (09:14→20:35)
[2019-01-17] MEDS: ACIDOPHILUS/BULGARICUS 1 EACH TAB.CHEW GT SCH ×3 (09:14→17:39)
[2019-01-17] MEDS: CALCIUM CARBONATE 500 MG TAB.CHEW GT SCH ×3 (09:19→17:39)
[2019-01-17] MEDS: CALCITRIOL 0.25 MCG CAPSULE PO SCH (09:19)
[2019-01-17] MEDS: ASCORBIC ACID 500 MG TABLET GT SCH ×2 (09:19→17:39)
[2019-01-17] MEDS: PROSTAT (PYXIS) 30 ML UDC GT SCH ×3 (09:19→17:39)
[2019-01-17] MEDS: METHADONE HCL 10 MG TABLET GT SCH ×2 (09:19→20:33)
[2019-01-17] MEDS: MULTIVIT W/MINERALS 1 TAB TABLET GT SCH (09:19)
[2019-01-17] MEDS: FAMOTIDINE (20 MG) 20 MG TABLET GT SCH ×2 (09:19→20:32)
[2019-01-17] MEDS: HYDROCODONE/APAP 5/325MG 1 EACH TABLET GT SCH ×2 (10:00→20:32)
[2019-01-17] MEDS: NYSTATIN/TRIAMCIN 15 GM CREAM 15 GM TUBE TP SCH ×2 (10:30→20:32)
[2019-01-17] MEDS: THERAHONEY GEL 1.5 OZ TUBE TP SCH ×6 (10:30→20:35)
[2019-01-17] MEDS: HYDROGEL DRESSING 90 GM TUBE TP SCH ×2 (10:30→20:32)
[2019-01-17] MEDS: NEOMY SULF/BACITRAC ZN/POLY 15 GM TUBE TP SCH ×2 (10:30→20:35)
--- NOTE | 2019-01-17 19:47 | NUR ---
RT NOTE: RECEIVED TRACH PT ON COOL AEROSOL. WILL PLACE PT ON VENT AT MIDNIGHT PER MD ORDER. TRACH IS PATENT AND SECURED. TRACH CARE DONE. Q6 BREATHING TX GIVEN WITH NO ADVERSE REACTION NOTED. SX DONE PRN. NO RESP DISTRESS AT THIS TIME. WILL CONT TO MONITOR PT. Addendum: 01/18/19 at 0244 by SOBIA VILLA RT Amended: Links added.
[2019-01-17 19:54] VITALS: BP 113/63
[2019-01-17] MEDS: ZINC SULFATE 220 MG CAPSULE GT SCH (20:32)
[2019-01-17] MEDS: ATORVASTATIN 10 MG TABLET GT SCH (21:11)
[2019-01-17] MEDS: POLYETHYLENE GLYCOL 3350 17 GM POWD.PACK GT SCH (21:11)
[2019-01-17] MEDS: ENOXAPARIN SODIUM 40 MG/0.4 ML DISP.SYRIN SQ SCH (21:23)
[2019-01-17] MEDS: HYDROCODONE/APAP 10/325MG 1 EA TABLET PO PRN (23:49)
[2019-01-18] MEDS: IPRATROPIUM NEB FS 0.5 MG/2.5 ML AMPUL.NEB NEB SCH ×4 (01:28→20:16)
[2019-01-18] MEDS: SUCRALFATE 1 G/10 ML UDC GT SCH ×4 (05:38→21:25)
[2019-01-18] MEDS: ACIDOPHILUS/BULGARICUS 1 EACH TAB.CHEW GT SCH ×3 (09:25→16:49)
[2019-01-18] MEDS: BACLOFEN (10 MG) 10 MG TABLET GT SCH ×4 (09:25→21:25)
[2019-01-18] MEDS: GABAPENTIN 250 MG/5 ML GT SCH ×3 (09:25→16:49)
[2019-01-18] MEDS: ESCITALOPRAM OXALATE (10 MG) 10 MG TABLET GT SCH (09:25)
[2019-01-18] MEDS: PROSTAT (PYXIS) 30 ML UDC GT SCH ×3 (09:27→16:49)
[2019-01-18] MEDS: HYDROGEN PEROXIDE 480 ML BOTTLE TP SCH ×2 (09:27→21:21)
[2019-01-18] MEDS: FAMOTIDINE (20 MG) 20 MG TABLET GT SCH ×2 (09:27→21:27)
[2019-01-18] MEDS: CALCIUM CARBONATE 500 MG TAB.CHEW GT SCH ×3 (09:28→16:49)
[2019-01-18] MEDS: HYDROGEL DRESSING 90 GM TUBE TP SCH ×2 (09:28→21:57)
[2019-01-18] MEDS: ASCORBIC ACID 500 MG TABLET GT SCH ×2 (09:28→16:50)
[2019-01-18] MEDS: NYSTATIN/TRIAMCIN 15 GM CREAM 15 GM TUBE TP SCH ×2 (09:28→21:57)
[2019-01-18] MEDS: CALCITRIOL 0.25 MCG CAPSULE PO SCH (09:28)
[2019-01-18] MEDS: NEOMY SULF/BACITRAC ZN/POLY 15 GM TUBE TP SCH ×2 (09:28→21:57)
[2019-01-18] MEDS: THERAHONEY GEL 1.5 OZ TUBE TP SCH ×6 (09:29→21:58)
[2019-01-18] MEDS: MULTIVIT W/MINERALS 1 TAB TABLET GT SCH (09:32)
[2019-01-18] MEDS: METHADONE HCL 10 MG TABLET GT SCH ×2 (09:39→21:26)
[2019-01-18] MEDS: HYDROCODONE/APAP 5/325MG 1 EACH TABLET GT SCH ×2 (09:40→21:27)
[2019-01-18 09:58] VITALS: BP 129/73
[2019-01-18 20:16] VITALS: BP 101/64
[2019-01-18] MEDS: ZINC SULFATE 220 MG CAPSULE GT SCH (21:27)
[2019-01-18] MEDS: ATORVASTATIN 10 MG TABLET GT SCH (21:27)
[2019-01-18] MEDS: ENOXAPARIN SODIUM 40 MG/0.4 ML DISP.SYRIN SQ SCH (21:27)
[2019-01-18] MEDS: POLYETHYLENE GLYCOL 3350 17 GM POWD.PACK GT SCH (21:27)
[2019-01-19] MEDS: IPRATROPIUM NEB FS 0.5 MG/2.5 ML AMPUL.NEB NEB SCH ×4 (01:52→20:20)
--- NOTE | 2019-01-19 04:16 | NUR ---
RT NOTES PT RECEIVED ON COOL AEROSOL. PLACED ON MECHANICAL VENT WITH ORDERED SETTINGS AT MIDNIGHT PER MD ORDERS. TRACH TUBE IN PLACE, PATENT, AND SECURED WITH TRACH TIE. ALARMS ON AND AUDIBLE. VENT PLUGGED IN TO RED OUTLET. AMBU BAG AND BACK UP TRACH BY THE BEDSIDE. PT SHOWS NO SIGNS OF DISTRESS AT THIS TIME. Addendum: 01/19/19 at 0418 by JERONIMO YOUNG RT Amended: Links added.
[2019-01-19] MEDS: SUCRALFATE 1 G/10 ML UDC GT SCH ×4 (05:35→21:23)
[2019-01-19] MEDS: HYDROGEN PEROXIDE 480 ML BOTTLE TP SCH ×2 (09:00→20:20)
[2019-01-19] MEDS: BACLOFEN (10 MG) 10 MG TABLET GT SCH ×4 (09:14→21:23)
[2019-01-19] MEDS: METHADONE HCL 10 MG TABLET GT SCH ×2 (09:14→21:24)
[2019-01-19] MEDS: GABAPENTIN 250 MG/5 ML GT SCH ×3 (09:15→17:00)
[2019-01-19] MEDS: FAMOTIDINE (20 MG) 20 MG TABLET GT SCH ×2 (09:15→21:24)
[2019-01-19] MEDS: MULTIVIT W/MINERALS 1 TAB TABLET GT SCH (09:15)
[2019-01-19] MEDS: CALCITRIOL 0.25 MCG CAPSULE PO SCH (09:15)
[2019-01-19] MEDS: ACIDOPHILUS/BULGARICUS 1 EACH TAB.CHEW GT SCH ×3 (09:15→17:00)
[2019-01-19] MEDS: PROSTAT (PYXIS) 30 ML UDC GT SCH ×3 (09:15→17:00)
[2019-01-19] MEDS: ASCORBIC ACID 500 MG TABLET GT SCH ×2 (09:15→17:00)
[2019-01-19] MEDS: CALCIUM CARBONATE 500 MG TAB.CHEW GT SCH ×3 (09:15→17:00)
[2019-01-19] MEDS: ESCITALOPRAM OXALATE (10 MG) 10 MG TABLET GT SCH (09:15)
[2019-01-19] MEDS: HYDROCODONE/APAP 5/325MG 1 EACH TABLET GT SCH ×2 (10:26→21:24)
[2019-01-19] MEDS: NYSTATIN/TRIAMCIN 15 GM CREAM 15 GM TUBE TP SCH ×2 (11:10→21:54)
[2019-01-19] MEDS: HYDROGEL DRESSING 90 GM TUBE TP SCH ×2 (11:10→21:54)
[2019-01-19] MEDS: THERAHONEY GEL 1.5 OZ TUBE TP SCH ×8 (11:10→21:55)
[2019-01-19] MEDS: NEOMY SULF/BACITRAC ZN/POLY 15 GM TUBE TP SCH ×2 (11:10→21:54)
[2019-01-19 12:26] VITALS: BP 129/77
--- NOTE | 2019-01-19 15:45 | NUR ---
Notified Dr. Seaman that resident's nephrostomy bag has no urine output while output from FC is yellow to pinkish color. Dr. Seaman ordered to do a CT scan of abdomen without contrast to verify nephrostomy tube placement and hold anticoagulant Lovenox for now. gave an order for IR to replace nephrostomy tube if not functioning. Radiology department informed.
--- NOTE | 2019-01-19 17:20 | NUR ---
Resident taken to radiology for CT scan of abdomen, Yong from radiology department said that based on CT scan result, he or someone else will coordinate replacement of nephrostomy tube with solar fabrication technician radiologist if necessary. Endorsed.
--- NOTE | 2019-01-19 19:20 | NUR ---
CT scan result relayed to Dr. Seaman. Result shows nephrostomy tube in place however patient has no output from the tube. Flushed nephrostomy tube with 5cc NS, no resistance and able to aspirate with the syringe but does not drain in the bag. Upon inspecting the tube/bag, a section in the tube is clogged which prevents urine from draining. Replaced tube attached to the drainage bag and urine started flowing. Urine cloudy with sediments, did not want culture urine at this time. VS 109/72, 67, 97%, 15, T99. Obtain 100 cc output. Endorsed.
[2019-01-19 20:38] VITALS: BP 109/72
[2019-01-19] MEDS: ZINC SULFATE 220 MG CAPSULE GT SCH (21:24)
[2019-01-19] MEDS: POLYETHYLENE GLYCOL 3350 17 GM POWD.PACK GT SCH (21:25)
[2019-01-19] MEDS: ATORVASTATIN 10 MG TABLET GT SCH (21:25)
[2019-01-20] MEDS: IPRATROPIUM NEB FS 0.5 MG/2.5 ML AMPUL.NEB NEB SCH ×4 (01:50→19:20)
[2019-01-20] MEDS: SUCRALFATE 1 G/10 ML UDC GT SCH ×4 (05:49→21:19)
--- NOTE | 2019-01-20 06:07 | NUR ---
RT NOTE PATIENT RECEIVED ON TRACH WITH COOL AEROSOL WITH VENTILATOR AT BEDSIDE. TRACH IS PATENT AND SECURED. ALARMS ARE SET AND AUDIBLE. PATIENT TOLERATED VENT WELL FROM MIDNIGHT TO 6AM. SPARE TRACH AND AMBU BAG IS AT BEDSIDE. PATIENT HAS EQUAL CHEST RISE WITH COARSE BILATERAL BREATH SOUNDS. SUCTION MODERATE AMOUNT OF THICK GREEN SECRETIONS T/O THE NIGHT. NO SOB NOTED. Addendum: 01/20/19 at 0608 by CARMEN REED RT Amended: Links added.
[2019-01-20] MEDS: METHOCARBAMOL (750MG) 750 MG TABLET GT PRN (06:46)
--- NOTE | 2019-01-20 06:54 | NUR ---
primary nurse reported episode of nephrostomy tube getting clog by sediments and slimy discharge. will endorse to day shift to monitor closely.
[2019-01-20 07:48] VITALS: BP 128/75
[2019-01-20] MEDS: HYDROGEN PEROXIDE 480 ML BOTTLE TP SCH ×2 (09:00→19:21)
[2019-01-20] MEDS: CALCITRIOL 0.25 MCG CAPSULE PO SCH (09:09)
[2019-01-20] MEDS: PROSTAT (PYXIS) 30 ML UDC GT SCH ×3 (09:09→17:21)
[2019-01-20] MEDS: ACIDOPHILUS/BULGARICUS 1 EACH TAB.CHEW GT SCH ×3 (09:09→17:20)
[2019-01-20] MEDS: FAMOTIDINE (20 MG) 20 MG TABLET GT SCH ×2 (09:09→21:23)
[2019-01-20] MEDS: METHADONE HCL 10 MG TABLET GT SCH ×2 (09:09→21:23)
[2019-01-20] MEDS: CALCIUM CARBONATE 500 MG TAB.CHEW GT SCH ×3 (09:09→17:21)
[2019-01-20] MEDS: ESCITALOPRAM OXALATE (10 MG) 10 MG TABLET GT SCH (09:09)
[2019-01-20] MEDS: BACLOFEN (10 MG) 10 MG TABLET GT SCH ×4 (09:09→21:19)
[2019-01-20] MEDS: MULTIVIT W/MINERALS 1 TAB TABLET GT SCH (09:09)
[2019-01-20] MEDS: ASCORBIC ACID 500 MG TABLET GT SCH ×2 (09:09→17:21)
[2019-01-20] MEDS: GABAPENTIN 250 MG/5 ML GT SCH ×3 (09:18→17:20)
[2019-01-20] MEDS: HYDROCODONE/APAP 5/325MG 1 EACH TABLET GT SCH ×2 (10:23→21:23)
[2019-01-20] MEDS: THERAHONEY GEL 1.5 OZ TUBE TP SCH ×6 (11:00→21:24)
[2019-01-20] MEDS: HYDROGEL DRESSING 90 GM TUBE TP SCH ×2 (11:00→21:24)
[2019-01-20] MEDS: NYSTATIN/TRIAMCIN 15 GM CREAM 15 GM TUBE TP SCH ×2 (11:00→21:24)
[2019-01-20] MEDS: NEOMY SULF/BACITRAC ZN/POLY 15 GM TUBE TP SCH ×2 (11:00→21:24)
--- NOTE | 2019-01-20 19:31 | NUR ---
RT NOTE: RECEIVED TRACH PT ON COOL AEROSOL. WILL PLACE PT ON VENT AT MIDNIGHT PER MD ORDER. TRACH IS PATENT AND SECURED. TRACH CARE DONE. Q6 BREATHING TX GIVEN WITH NO ADVERSE REACTION NOTED. SX DONE PRN. NO RESP DISTRESS AT THIS TIME. WILL CONT TO MONITOR PT. Addendum: 01/21/19 at 0252 by SOBIA VILLA RT Amended: Links added.
[2019-01-20 20:37] VITALS: BP 103/68
[2019-01-20] MEDS: ZINC SULFATE 220 MG CAPSULE GT SCH (21:24)
[2019-01-20] MEDS: ATORVASTATIN 10 MG TABLET GT SCH (21:25)
[2019-01-20] MEDS: POLYETHYLENE GLYCOL 3350 17 GM POWD.PACK GT SCH (21:25)
[2019-01-21] MEDS: IPRATROPIUM NEB FS 0.5 MG/2.5 ML AMPUL.NEB NEB SCH ×4 (01:34→19:31)
[2019-01-21] MEDS: SUCRALFATE 1 G/10 ML UDC GT SCH ×4 (05:22→20:17)
[2019-01-21 07:56] VITALS: BP 122/83
[2019-01-21] MEDS: BACLOFEN (10 MG) 10 MG TABLET GT SCH ×4 (09:03→20:17)
[2019-01-21] MEDS: HYDROGEN PEROXIDE 480 ML BOTTLE TP SCH ×2 (09:03→19:31)
[2019-01-21] MEDS: GABAPENTIN 250 MG/5 ML GT SCH ×3 (09:03→17:08)
[2019-01-21] MEDS: ESCITALOPRAM OXALATE (10 MG) 10 MG TABLET GT SCH (09:03)
[2019-01-21] MEDS: ACIDOPHILUS/BULGARICUS 1 EACH TAB.CHEW GT SCH ×3 (09:03→17:08)
[2019-01-21] MEDS: MULTIVIT W/MINERALS 1 TAB TABLET GT SCH (09:04)
[2019-01-21] MEDS: CALCITRIOL 0.25 MCG CAPSULE PO SCH (09:04)
[2019-01-21] MEDS: FAMOTIDINE (20 MG) 20 MG TABLET GT SCH ×2 (09:04→20:18)
[2019-01-21] MEDS: METHADONE HCL 10 MG TABLET GT SCH ×2 (09:04→21:57)
[2019-01-21] MEDS: PROSTAT (PYXIS) 30 ML UDC GT SCH ×3 (09:04→17:08)
[2019-01-21] MEDS: CALCIUM CARBONATE 500 MG TAB.CHEW GT SCH ×3 (09:04→17:08)
[2019-01-21] MEDS: ASCORBIC ACID 500 MG TABLET GT SCH ×2 (09:04→17:08)
[2019-01-21] MEDS: HYDROCODONE/APAP 5/325MG 1 EACH TABLET GT SCH ×2 (11:37→20:18)
[2019-01-21] MEDS: NYSTATIN/TRIAMCIN 15 GM CREAM 15 GM TUBE TP SCH ×2 (12:10→20:58)
[2019-01-21] MEDS: THERAHONEY GEL 1.5 OZ TUBE TP SCH ×6 (12:10→20:58)
[2019-01-21] MEDS: NEOMY SULF/BACITRAC ZN/POLY 15 GM TUBE TP SCH ×2 (12:10→20:58)
[2019-01-21] MEDS: HYDROGEL DRESSING 90 GM TUBE TP SCH ×2 (12:10→20:58)
--- NOTE | 2019-01-21 16:20 | NUR ---
PT RECEIVE STABLE ON 28% C/A VIA T-MASK, TRACH PATENT ANS SECURED, ALL TX GIVEN AND NO ADVERSE REACTION OBSERVE, PT REFUSED TRACH CARE, NURSE AWARE, WILL CONTINUE TO MONITOR Addendum: 01/21/19 at 1622 by YESICA CHEW RT Amended: Links added.
[2019-01-21 20:12] VITALS: BP 110/68
[2019-01-21] MEDS: ZINC SULFATE 220 MG CAPSULE GT SCH (20:18)
[2019-01-21] MEDS: POLYETHYLENE GLYCOL 3350 17 GM POWD.PACK GT SCH (21:02)
[2019-01-21] MEDS: ATORVASTATIN 10 MG TABLET GT SCH (21:02)
[2019-01-22] MEDS: IPRATROPIUM NEB FS 0.5 MG/2.5 ML AMPUL.NEB NEB SCH ×4 (01:41→20:09)
[2019-01-22] MEDS: SUCRALFATE 1 G/10 ML UDC GT SCH ×4 (05:58→20:30)
[2019-01-22 07:32] VITALS: BP 119/74
[2019-01-22] MEDS: HYDROGEL DRESSING 90 GM TUBE TP SCH ×2 (09:00→21:58)
[2019-01-22] MEDS: NEOMY SULF/BACITRAC ZN/POLY 15 GM TUBE TP SCH ×2 (09:00→21:58)
[2019-01-22] MEDS: NYSTATIN/TRIAMCIN 15 GM CREAM 15 GM TUBE TP SCH ×2 (09:00→21:58)
[2019-01-22] MEDS: THERAHONEY GEL 1.5 OZ TUBE TP SCH ×6 (09:00→21:58)
--- NOTE | 2019-01-22 09:13 | NUR ---
RT PT RECEIVED ON COOL AEROSOL AT 5 LPM. PT IS TRACHED, YEIMI 8. AMBU BAG AT HEAD OF BED. SPARE TRACH AT BEDSIDE. MINIMAL SECRETIONS SUCTIONED. PT IS IN NO APPARENT RESPIRATORY DISTRESS. WILL CONTINUE TO MONITOR. Addendum: 01/22/19 at 0915 by LIU MARTINES RT Amended: Links added.
[2019-01-22] MEDS: ACIDOPHILUS/BULGARICUS 1 EACH TAB.CHEW GT SCH ×3 (09:25→16:56)
[2019-01-22] MEDS: BACLOFEN (10 MG) 10 MG TABLET GT SCH ×4 (09:25→21:56)
[2019-01-22] MEDS: ESCITALOPRAM OXALATE (10 MG) 10 MG TABLET GT SCH (09:25)
[2019-01-22] MEDS: GABAPENTIN 250 MG/5 ML GT SCH ×3 (09:25→16:56)
[2019-01-22] MEDS: HYDROCODONE/APAP 5/325MG 1 EACH TABLET GT SCH ×2 (09:26→21:57)
[2019-01-22] MEDS: MULTIVIT W/MINERALS 1 TAB TABLET GT SCH (09:26)
[2019-01-22] MEDS: FAMOTIDINE (20 MG) 20 MG TABLET GT SCH ×2 (09:26→21:57)
[2019-01-22] MEDS: CALCITRIOL 0.25 MCG CAPSULE PO SCH (09:26)
[2019-01-22] MEDS: PROSTAT (PYXIS) 30 ML UDC GT SCH ×3 (09:26→16:56)
[2019-01-22] MEDS: CALCIUM CARBONATE 500 MG TAB.CHEW GT SCH ×3 (09:26→16:56)
[2019-01-22] MEDS: ASCORBIC ACID 500 MG TABLET GT SCH ×2 (09:26→16:56)
[2019-01-22] MEDS: METHADONE HCL 10 MG TABLET GT SCH ×2 (09:26→21:57)
[2019-01-22 20:36] VITALS: BP 109/71
[2019-01-22] MEDS: HYDROGEN PEROXIDE 480 ML BOTTLE TP SCH (21:00)
[2019-01-22] MEDS: ZINC SULFATE 220 MG CAPSULE GT SCH (21:58)
[2019-01-22] MEDS: ATORVASTATIN 10 MG TABLET GT SCH (21:58)
[2019-01-22] MEDS: POLYETHYLENE GLYCOL 3350 17 GM POWD.PACK GT SCH (21:59)
[2019-01-23] MEDS: IPRATROPIUM NEB FS 0.5 MG/2.5 ML AMPUL.NEB NEB SCH ×4 (01:11→20:15)
[2019-01-23] MEDS: SUCRALFATE 1 G/10 ML UDC GT SCH ×4 (05:35→20:21)
[2019-01-23 08:00] VITALS: BP 113/71
[2019-01-23] MEDS: ESCITALOPRAM OXALATE (10 MG) 10 MG TABLET GT SCH (08:14)
[2019-01-23] MEDS: GABAPENTIN 250 MG/5 ML GT SCH ×3 (08:14→16:17)
[2019-01-23] MEDS: ACIDOPHILUS/BULGARICUS 1 EACH TAB.CHEW GT SCH ×3 (08:14→16:17)
[2019-01-23] MEDS: ASCORBIC ACID 500 MG TABLET GT SCH ×2 (08:15→16:17)
[2019-01-23] MEDS: CALCIUM CARBONATE 500 MG TAB.CHEW GT SCH ×3 (08:15→16:17)
[2019-01-23] MEDS: BACLOFEN (10 MG) 10 MG TABLET GT SCH ×4 (08:15→20:21)
[2019-01-23] MEDS: PROSTAT (PYXIS) 30 ML UDC GT SCH ×3 (08:15→16:17)
[2019-01-23] MEDS: CALCITRIOL 0.25 MCG CAPSULE PO SCH (08:15)
[2019-01-23] MEDS: FAMOTIDINE (20 MG) 20 MG TABLET GT SCH ×2 (08:15→20:22)
[2019-01-23] MEDS: MULTIVIT W/MINERALS 1 TAB TABLET GT SCH (08:15)
[2019-01-23] MEDS: HYDROGEN PEROXIDE 480 ML BOTTLE TP SCH ×2 (08:24→21:00)
[2019-01-23] MEDS: METHADONE HCL 10 MG TABLET GT SCH ×2 (08:49→21:58)
--- NOTE | 2019-01-23 12:27 | NUR ---
Family was not able to attend January Family Support Group today held from 11 am-12 noon. Family will be invited and encouraged to attend next month's Family Support Group.
[2019-01-23] MEDS: HYDROCODONE/APAP 5/325MG 1 EACH TABLET GT SCH ×2 (12:30→20:22)
[2019-01-23] MEDS: NEOMY SULF/BACITRAC ZN/POLY 15 GM TUBE TP SCH ×2 (13:30→21:00)
[2019-01-23] MEDS: NYSTATIN/TRIAMCIN 15 GM CREAM 15 GM TUBE TP SCH ×2 (13:30→21:00)
[2019-01-23] MEDS: THERAHONEY GEL 1.5 OZ TUBE TP SCH ×6 (13:30→21:00)
[2019-01-23] MEDS: HYDROGEL DRESSING 90 GM TUBE TP SCH ×2 (13:30→21:00)
--- NOTE | 2019-01-23 17:09 | NUR ---
RT NOTE RECEIVED PATIENT ON TRACH WITH COOL AEROSOL. TRACH IS PATENT AND SECURED. SPARE TRACH AND AMBU BAG IS AT BEDSIDE. PATIENT HAS EQUAL CHEST RISE WITH COARSE BILATERAL BREATH SOUNDS. SUCTION MODERATE AMOUNT OF THICK GREEN/WHITE SECRETIONS TROUGH OUT THE DAY. TRACH CARE WAS PERFORMED. BREATHING TREATMENTS GIVEN WITH NO ADVERSE REACTION. NO SOB NOTED. Addendum: 01/23/19 at 1710 by CARMEN REED RT Amended: Links added.
[2019-01-23] MEDS: ZINC SULFATE 220 MG CAPSULE GT SCH (20:22)
[2019-01-23 20:23] VITALS: BP 105/67
[2019-01-23] MEDS: POLYETHYLENE GLYCOL 3350 17 GM POWD.PACK GT SCH (21:00)
[2019-01-23] MEDS: ATORVASTATIN 10 MG TABLET GT SCH (21:00)
[2019-01-24] MEDS: IPRATROPIUM NEB FS 0.5 MG/2.5 ML AMPUL.NEB NEB SCH ×4 (02:07→19:59)
[2019-01-24] MEDS: SUCRALFATE 1 G/10 ML UDC GT SCH ×4 (05:42→20:30)
[2019-01-24] MEDS: ACETAMINOPHEN 650 MG/20 ML UDC- SA PATIENTS-PAIN ONLY GT PRN (05:43)
[2019-01-24 08:10] VITALS: BP 136/70
[2019-01-24] MEDS: HYDROGEN PEROXIDE 480 ML BOTTLE TP SCH ×2 (08:28→20:33)
[2019-01-24] MEDS: METHADONE HCL 10 MG TABLET GT SCH ×2 (09:55→22:51)
[2019-01-24] MEDS: GABAPENTIN 250 MG/5 ML GT SCH ×3 (09:55→16:54)
[2019-01-24] MEDS: ESCITALOPRAM OXALATE (10 MG) 10 MG TABLET GT SCH (09:55)
[2019-01-24] MEDS: ACIDOPHILUS/BULGARICUS 1 EACH TAB.CHEW GT SCH ×3 (09:55→16:54)
[2019-01-24] MEDS: BACLOFEN (10 MG) 10 MG TABLET GT SCH ×4 (09:55→21:00)
[2019-01-24] MEDS: CALCIUM CARBONATE 500 MG TAB.CHEW GT SCH ×3 (09:56→16:54)
[2019-01-24] MEDS: CALCITRIOL 0.25 MCG CAPSULE PO SCH (09:56)
[2019-01-24] MEDS: HYDROCODONE/APAP 5/325MG 1 EACH TABLET GT SCH ×2 (09:56→22:20)
[2019-01-24] MEDS: FAMOTIDINE (20 MG) 20 MG TABLET GT SCH ×2 (09:56→21:00)
[2019-01-24] MEDS: PROSTAT (PYXIS) 30 ML UDC GT SCH ×3 (09:56→16:54)
[2019-01-24] MEDS: MULTIVIT W/MINERALS 1 TAB TABLET GT SCH (09:56)
[2019-01-24] MEDS: ASCORBIC ACID 500 MG TABLET GT SCH ×2 (09:56→16:54)
[2019-01-24] MEDS: NEOMY SULF/BACITRAC ZN/POLY 15 GM TUBE TP SCH ×2 (10:30→22:50)
[2019-01-24] MEDS: THERAHONEY GEL 1.5 OZ TUBE TP SCH ×6 (10:30→22:50)
[2019-01-24] MEDS: HYDROGEL DRESSING 90 GM TUBE TP SCH ×2 (10:30→22:50)
[2019-01-24] MEDS: NYSTATIN/TRIAMCIN 15 GM CREAM 15 GM TUBE TP SCH ×2 (10:30→22:50)
--- NOTE | 2019-01-24 17:22 | NUR ---
RT NOTE RECEIVED PATIENT ON TRACH WITH COOL AEROSOL. TRACH IS PATENT AND SECURED. SPARE TRACH AND AMBU BAG IS AT BEDSIDE. PATIENT HAS EQUAL CHEST RISE WITH COARSE BILATERAL BREATH SOUNDS. SUCTION MODERATE AMOUNT OF THICK GREEN/WHITE SECRETIONS TROUGH OUT THE DAY. TRACH CARE WAS PERFORMED. BREATHING TREATMENTS GIVEN WITH NO ADVERSE REACTION. NO SOB NOTED. Addendum: 01/24/19 at 1723 by CARMEN REED RT Amended: Links added.
[2019-01-24 20:05] VITALS: BP 103/66
[2019-01-24] MEDS: ZINC SULFATE 220 MG CAPSULE GT SCH (21:00)
--- NOTE | 2019-01-24 21:19 | NUR ---
PT RECEIVE STABLE ON C/A @ 28% FIO2, TRACH PATENT AND SECURED, BACK UP NENA AND NAIMA BAG IS AT BEDSIDE, WILL CONTINUE TO MONITOR Addendum: 01/24/19 at 2119 by YESICA CHEW RT Amended: Links added.
[2019-01-24] MEDS: ATORVASTATIN 10 MG TABLET GT SCH (22:21)
[2019-01-24] MEDS: POLYETHYLENE GLYCOL 3350 17 GM POWD.PACK GT SCH (22:21)
[2019-01-25] MEDS: IPRATROPIUM NEB FS 0.5 MG/2.5 ML AMPUL.NEB NEB SCH ×4 (01:25→19:45)
[2019-01-25] MEDS: SUCRALFATE 1 G/10 ML UDC GT SCH ×4 (05:55→21:21)
[2019-01-25 08:08] VITALS: BP 119/64
[2019-01-25] MEDS: HYDROGEN PEROXIDE 480 ML BOTTLE TP SCH ×2 (08:34→21:00)
[2019-01-25] MEDS: ACIDOPHILUS/BULGARICUS 1 EACH TAB.CHEW GT SCH ×3 (09:58→17:27)
[2019-01-25] MEDS: GABAPENTIN 250 MG/5 ML GT SCH ×3 (09:58→17:27)
[2019-01-25] MEDS: ESCITALOPRAM OXALATE (10 MG) 10 MG TABLET GT SCH (09:58)
[2019-01-25] MEDS: BACLOFEN (10 MG) 10 MG TABLET GT SCH ×4 (09:58→21:21)
[2019-01-25] MEDS: FAMOTIDINE (20 MG) 20 MG TABLET GT SCH ×2 (09:59→21:21)
[2019-01-25] MEDS: METHADONE HCL 10 MG TABLET GT SCH ×2 (09:59→21:57)
[2019-01-25] MEDS: CALCITRIOL 0.25 MCG CAPSULE PO SCH (09:59)
[2019-01-25] MEDS: PROSTAT (PYXIS) 30 ML UDC GT SCH ×3 (09:59→17:27)
[2019-01-25] MEDS: ASCORBIC ACID 500 MG TABLET GT SCH ×2 (09:59→17:27)
[2019-01-25] MEDS: HYDROCODONE/APAP 5/325MG 1 EACH TABLET GT SCH ×2 (09:59→21:21)
[2019-01-25] MEDS: CALCIUM CARBONATE 500 MG TAB.CHEW GT SCH ×3 (09:59→17:27)
[2019-01-25] MEDS: MULTIVIT W/MINERALS 1 TAB TABLET GT SCH (09:59)
[2019-01-25] MEDS: HYDROGEL DRESSING 90 GM TUBE TP SCH ×2 (10:30→21:46)
[2019-01-25] MEDS: NEOMY SULF/BACITRAC ZN/POLY 15 GM TUBE TP SCH ×2 (10:30→21:46)
[2019-01-25] MEDS: NYSTATIN/TRIAMCIN 15 GM CREAM 15 GM TUBE TP SCH ×2 (10:30→21:46)
[2019-01-25] MEDS: THERAHONEY GEL 1.5 OZ TUBE TP SCH ×6 (10:30→21:47)
--- NOTE | 2019-01-25 14:00 | NUR ---
Informed Dr. Ugarte that patient's Lovenox still on hold but no further bleeding from F/C. Lovenox order resumed.
--- NOTE | 2019-01-25 15:30 | NUR ---
Resident's sister in law Vilma visited. Updated family of patient's condition, including patient's wounds, size and response to treatment. Vilma saw most recent wound pictures and said that she has seen worst than the current wound pictures from his previous facility. She was also made aware that patient has open wounds in the lower extremities which is not caused by pressure. Patient is being seen by senior php software developer Dr. Amato with new order to use Xeroform/Mepilex. Vilma is requesting if the doctor can run some test to see if this is similar to the skin lesion he has in the face and neck. Informed her that it will relayed to Dr. Seaman when he makes his rounds. Endorsed.
[2019-01-25] MEDS: MAGNESIUM HYDROXIDE 30 ML UDC GT PRN (19:18)
[2019-01-25 20:34] VITALS: BP 112/65
[2019-01-25] MEDS: ENOXAPARIN SODIUM 40 MG/0.4 ML DISP.SYRIN SQ SCH (21:21)
[2019-01-25] MEDS: ZINC SULFATE 220 MG CAPSULE GT SCH (21:21)
[2019-01-25] MEDS: POLYETHYLENE GLYCOL 3350 17 GM POWD.PACK GT SCH (21:22)
[2019-01-25] MEDS: ATORVASTATIN 10 MG TABLET GT SCH (21:22)
[2019-01-26] MEDS: IPRATROPIUM NEB FS 0.5 MG/2.5 ML AMPUL.NEB NEB SCH ×4 (00:41→20:00)
[2019-01-26] MEDS: SUCRALFATE 1 G/10 ML UDC GT SCH ×4 (06:36→21:27)
[2019-01-26 08:00] VITALS: BP 103/64
[2019-01-26] MEDS: HYDROGEN PEROXIDE 480 ML BOTTLE TP SCH ×2 (08:20→21:04)
[2019-01-26] MEDS: PROSTAT (PYXIS) 30 ML UDC GT SCH ×3 (09:42→17:44)
[2019-01-26] MEDS: ASCORBIC ACID 500 MG TABLET GT SCH ×2 (09:42→17:44)
[2019-01-26] MEDS: HYDROCODONE/APAP 5/325MG 1 EACH TABLET GT SCH ×2 (09:42→21:28)
[2019-01-26] MEDS: FAMOTIDINE (20 MG) 20 MG TABLET GT SCH ×2 (09:42→21:28)
[2019-01-26] MEDS: CALCIUM CARBONATE 500 MG TAB.CHEW GT SCH ×3 (09:42→17:44)
[2019-01-26] MEDS: GABAPENTIN 250 MG/5 ML GT SCH ×3 (09:42→17:44)
[2019-01-26] MEDS: MULTIVIT W/MINERALS 1 TAB TABLET GT SCH (09:42)
[2019-01-26] MEDS: BACLOFEN (10 MG) 10 MG TABLET GT SCH ×4 (09:42→21:27)
[2019-01-26] MEDS: ACIDOPHILUS/BULGARICUS 1 EACH TAB.CHEW GT SCH ×3 (09:42→17:44)
[2019-01-26] MEDS: ESCITALOPRAM OXALATE (10 MG) 10 MG TABLET GT SCH (09:42)
[2019-01-26] MEDS: METHADONE HCL 10 MG TABLET GT SCH ×2 (09:42→21:27)
[2019-01-26] MEDS: CALCITRIOL 0.25 MCG CAPSULE PO SCH (09:43)
[2019-01-26] MEDS: NYSTATIN/TRIAMCIN 15 GM CREAM 15 GM TUBE TP SCH ×2 (10:15→21:29)
[2019-01-26] MEDS: NEOMY SULF/BACITRAC ZN/POLY 15 GM TUBE TP SCH (10:15)
[2019-01-26] MEDS: THERAHONEY GEL 1.5 OZ TUBE TP SCH ×6 (10:15→21:29)
[2019-01-26] MEDS: HYDROGEL DRESSING 90 GM TUBE TP SCH ×2 (10:15→21:29)
[2019-01-26] MEDS: ZINC SULFATE 220 MG CAPSULE GT SCH (21:28)
[2019-01-26] MEDS: ENOXAPARIN SODIUM 40 MG/0.4 ML DISP.SYRIN SQ SCH (21:29)
[2019-01-26] MEDS: ATORVASTATIN 10 MG TABLET GT SCH (21:29)
[2019-01-26] MEDS: POLYETHYLENE GLYCOL 3350 17 GM POWD.PACK GT SCH (21:29)
[2019-01-27] MEDS: IPRATROPIUM NEB FS 0.5 MG/2.5 ML AMPUL.NEB NEB SCH ×4 (01:23→20:22)
[2019-01-27 02:00] VITALS: BP 111/68
[2019-01-27] MEDS: SUCRALFATE 1 G/10 ML UDC GT SCH ×4 (06:50→21:28)
[2019-01-27 07:45] VITALS: BP 129/75
[2019-01-27] MEDS: METHADONE HCL 10 MG TABLET GT SCH ×2 (09:00→21:29)
[2019-01-27] MEDS: ESCITALOPRAM OXALATE (10 MG) 10 MG TABLET GT SCH (09:00)
[2019-01-27] MEDS: ASCORBIC ACID 500 MG TABLET GT SCH ×2 (09:00→17:00)
[2019-01-27] MEDS: PROSTAT (PYXIS) 30 ML UDC GT SCH ×3 (09:00→17:00)
[2019-01-27] MEDS: HYDROGEN PEROXIDE 480 ML BOTTLE TP SCH ×2 (09:00→20:22)
[2019-01-27] MEDS: GABAPENTIN 250 MG/5 ML GT SCH ×3 (09:00→17:00)
[2019-01-27] MEDS: ACIDOPHILUS/BULGARICUS 1 EACH TAB.CHEW GT SCH ×3 (09:00→17:00)
[2019-01-27] MEDS: FAMOTIDINE (20 MG) 20 MG TABLET GT SCH ×2 (09:00→21:29)
[2019-01-27] MEDS: MULTIVIT W/MINERALS 1 TAB TABLET GT SCH (09:00)
[2019-01-27] MEDS: THERAHONEY GEL 1.5 OZ TUBE TP SCH ×6 (09:00→21:30)
[2019-01-27] MEDS: CALCIUM CARBONATE 500 MG TAB.CHEW GT SCH ×3 (09:00→17:00)
[2019-01-27] MEDS: BACLOFEN (10 MG) 10 MG TABLET GT SCH ×4 (09:00→21:28)
[2019-01-27] MEDS: CALCITRIOL 0.25 MCG CAPSULE PO SCH (09:00)
[2019-01-27] MEDS: HYDROCODONE/APAP 5/325MG 1 EACH TABLET GT SCH ×2 (10:30→21:29)
[2019-01-27] MEDS: HYDROGEL DRESSING 90 GM TUBE TP SCH ×2 (11:00→21:30)
[2019-01-27] MEDS: NYSTATIN/TRIAMCIN 15 GM CREAM 15 GM TUBE TP SCH ×2 (11:00→21:30)
[2019-01-27 20:50] VITALS: BP 114/69
--- NOTE | 2019-01-27 21:21 | NUR ---
RT NOTE RECEIVED PATIENT ON TRACH WITH COOL AEROSOL. TRACH IS PATENT AND SECURED. SPARE TRACH AND BVM IS AT BEDSIDE. PATIENT IS STABLE. PATIENT HAD COARSE UPPER LOBES AND DIMINISHED LOWER LOBES BILATERAL BREATH SOUNDS. SUCTION SMALL AMOUNT OF THICK GREEN SECRETIONS. BREATHING TREATMENT GIVEN WITH NO ADVERSE REACTIONS. WILL CONTINUE TO MONITOR. Addendum: 01/27/19 at 2126 by CARMEN REED RT Amended: Links added.
[2019-01-27] MEDS: ZINC SULFATE 220 MG CAPSULE GT SCH (21:29)
[2019-01-27] MEDS: ENOXAPARIN SODIUM 40 MG/0.4 ML DISP.SYRIN SQ SCH (21:30)
[2019-01-27] MEDS: ATORVASTATIN 10 MG TABLET GT SCH (21:30)
[2019-01-27] MEDS: POLYETHYLENE GLYCOL 3350 17 GM POWD.PACK GT SCH (21:30)
[2019-01-28] MEDS: IPRATROPIUM NEB FS 0.5 MG/2.5 ML AMPUL.NEB NEB SCH ×4 (01:36→19:25)
[2019-01-28] MEDS: SUCRALFATE 1 G/10 ML UDC GT SCH ×4 (05:49→21:26)
[2019-01-28 08:06] VITALS: BP 109/60
[2019-01-28] MEDS: METHADONE HCL 10 MG TABLET GT SCH ×2 (09:00→21:26)
[2019-01-28] MEDS: ASCORBIC ACID 500 MG TABLET GT SCH ×2 (09:00→16:22)
[2019-01-28] MEDS: ACIDOPHILUS/BULGARICUS 1 EACH TAB.CHEW GT SCH ×3 (09:00→16:22)
[2019-01-28] MEDS: PROSTAT (PYXIS) 30 ML UDC GT SCH ×3 (09:00→16:22)
[2019-01-28] MEDS: GABAPENTIN 250 MG/5 ML GT SCH ×3 (09:00→16:21)
[2019-01-28] MEDS: HYDROGEN PEROXIDE 480 ML BOTTLE TP SCH ×2 (09:00→20:15)
[2019-01-28] MEDS: CALCIUM CARBONATE 500 MG TAB.CHEW GT SCH ×3 (09:00→16:22)
[2019-01-28] MEDS: HYDROCODONE/APAP 5/325MG 1 EACH TABLET GT SCH ×2 (09:00→21:26)
[2019-01-28] MEDS: FAMOTIDINE (20 MG) 20 MG TABLET GT SCH ×2 (09:00→21:26)
[2019-01-28] MEDS: BACLOFEN (10 MG) 10 MG TABLET GT SCH ×4 (09:00→21:26)
[2019-01-28] MEDS: MULTIVIT W/MINERALS 1 TAB TABLET GT SCH (09:00)
[2019-01-28] MEDS: CALCITRIOL 0.25 MCG CAPSULE PO SCH (09:00)
[2019-01-28] MEDS: ESCITALOPRAM OXALATE (10 MG) 10 MG TABLET GT SCH (09:00)
[2019-01-28] MEDS: NYSTATIN/TRIAMCIN 15 GM CREAM 15 GM TUBE TP SCH ×2 (11:00→21:27)
[2019-01-28] MEDS: HYDROGEL DRESSING 90 GM TUBE TP SCH ×2 (11:00→21:27)
[2019-01-28] MEDS: THERAHONEY GEL 1.5 OZ TUBE TP SCH ×6 (11:00→21:27)
--- NOTE | 2019-01-28 11:53 | NUR ---
Police Worker completed the Child Welfare Social Worker portion of [facility]. The patients responsible constitution party is their Sis in Law, Vilma Marley [phone] who is very involved and supportive. The resident is awake, alert, and may communicate by voice box, or mouthing. The resident is Full Code, with Ventilator support, trach and on PO diet with good appetite overall, 50-100% with lots of 75%, 100% PO intake. Family brings food sometimes, per nursing. Pt likes sandwiches, yogurt, bagel, cream cheese, juices, and fresh fruits, per nursing. Staff helps pt. with filling menu daily. Also, prostat TID as ordered for now. The patients last dental visit by was on 11/14/18. The patents last optometry visit by was on 07/13/18. The patients last podiatry visit by was on 01/25/19. Addendum: 01/28/19 at 1202 by ROULA RODRIGUES Ventilator Support: CA 28% from 6 AM-12 midnight as tolerated; AC12 VT 450 FIO2 28% 12 midnight- 6 AM
--- NOTE | 2019-01-28 20:16 | NUR ---
PT RCVD TRACH'D ON COOL AEROSOL WITH CHARTED SETTINGS. PT TERRANCE TX WELL. SX DONE. PT TRACH IS PATENT AND SECURE. AMBU BAG AT BEDSIDE. NO SOB NOTED. Addendum: 01/28/19 at 2016 by LUCIANA TRIMBLE RT Amended: Links added.
[2019-01-28] MEDS: ZINC SULFATE 220 MG CAPSULE GT SCH (21:26)
[2019-01-28] MEDS: POLYETHYLENE GLYCOL 3350 17 GM POWD.PACK GT SCH (21:27)
[2019-01-28] MEDS: ATORVASTATIN 10 MG TABLET GT SCH (21:27)
[2019-01-28] MEDS: ENOXAPARIN SODIUM 40 MG/0.4 ML DISP.SYRIN SQ SCH (21:27)
[2019-01-28 21:30] VITALS: BP 109/57
[2019-01-29] MEDS: IPRATROPIUM NEB FS 0.5 MG/2.5 ML AMPUL.NEB NEB SCH ×4 (00:39→19:31)
[2019-01-29] MEDS: SUCRALFATE 1 G/10 ML UDC GT SCH ×4 (05:52→20:30)
--- NOTE | 2019-01-29 08:25 | NUR ---
RT RECEIVED PT ON COOL AEROSOL AT 5LP. TRACHED WITH SHILEY 8. HOB AT 30 DEGREES.AMBU BAG AT HEAD OF BED. SPARE TRACH AT BEDSIDE. NO RESPIRATORY DISTRESS. WILL CONTINUE TO MONITOR. Addendum: 01/29/19 at 1139 by LIU MARTINES RT Amended: Links added.
[2019-01-29] MEDS: BACLOFEN (10 MG) 10 MG TABLET GT SCH ×4 (08:40→21:36)
[2019-01-29] MEDS: ESCITALOPRAM OXALATE (10 MG) 10 MG TABLET GT SCH (08:40)
[2019-01-29] MEDS: GABAPENTIN 250 MG/5 ML GT SCH ×3 (08:40→16:55)
[2019-01-29] MEDS: ACIDOPHILUS/BULGARICUS 1 EACH TAB.CHEW GT SCH ×3 (08:40→16:55)
[2019-01-29] MEDS: METHADONE HCL 10 MG TABLET GT SCH ×2 (08:41→21:36)
[2019-01-29] MEDS: PROSTAT (PYXIS) 30 ML UDC GT SCH ×3 (08:41→16:55)
[2019-01-29] MEDS: CALCIUM CARBONATE 500 MG TAB.CHEW GT SCH ×3 (08:41→16:55)
[2019-01-29] MEDS: ASCORBIC ACID 500 MG TABLET GT SCH ×2 (08:41→16:55)
[2019-01-29] MEDS: CALCITRIOL 0.25 MCG CAPSULE PO SCH (08:41)
[2019-01-29] MEDS: MULTIVIT W/MINERALS 1 TAB TABLET GT SCH (08:41)
[2019-01-29] MEDS: FAMOTIDINE (20 MG) 20 MG TABLET GT SCH ×2 (08:41→21:37)
[2019-01-29] MEDS: HYDROGEN PEROXIDE 480 ML BOTTLE TP SCH ×2 (09:00→20:06)
[2019-01-29] MEDS: HYDROCODONE/APAP 5/325MG 1 EACH TABLET GT SCH ×2 (10:40→21:37)
[2019-01-29] MEDS: THERAHONEY GEL 1.5 OZ TUBE TP SCH ×6 (11:10→21:38)
[2019-01-29] MEDS: NYSTATIN/TRIAMCIN 15 GM CREAM 15 GM TUBE TP SCH ×2 (11:10→21:37)
[2019-01-29] MEDS: HYDROGEL DRESSING 90 GM TUBE TP SCH ×2 (11:10→21:37)
[2019-01-29 11:54] VITALS: BP 142/63
--- NOTE | 2019-01-29 14:25 | NUR ---
SW checked in on pt. and patient expressed that he would like to be calling his relatives from now until . SW assisted the pt. with calling his sister, Janiya who the pt. stated resides in [place]. The pt. had his voice box and was able to verbalize with Janiya. SW facilitated the conversation as needed. Janiya informed the pt. that she will be visiting the patient in early February. The pt. expressed excitement and stated to Social Work Assistant how grateful and thankful he was for speaking to his sister. SW will assist the pt. in speaking with his family via phone call from now until [place].
[2019-01-29 20:15] VITALS: BP 114/71
--- NOTE | 2019-01-29 20:19 | NUR ---
PT RCVD TRACH'D ON COOL AEROSOL WITH CHARTED SETTINGS. PT TERRANCE TX WELL. SX DONE. PT TRACH IS PATENT AND SECURE. AMBU BAG AT BEDSIDE. NO SOB NOTED. Addendum: 01/29/19 at 2019 by LUCIANA BERNAL Amended: Links added.
[2019-01-29] MEDS: ZINC SULFATE 220 MG CAPSULE GT SCH (21:37)
[2019-01-29] MEDS: ENOXAPARIN SODIUM 40 MG/0.4 ML DISP.SYRIN SQ SCH (21:37)
[2019-01-29] MEDS: POLYETHYLENE GLYCOL 3350 17 GM POWD.PACK GT SCH (21:38)
[2019-01-29] MEDS: ATORVASTATIN 10 MG TABLET GT SCH (21:38)
[2019-01-30] MEDS: IPRATROPIUM NEB FS 0.5 MG/2.5 ML AMPUL.NEB NEB SCH ×4 (01:04→19:28)
[2019-01-30] MEDS: SUCRALFATE 1 G/10 ML UDC GT SCH ×4 (05:51→21:18)
[2019-01-30] MEDS: HYDROGEN PEROXIDE 480 ML BOTTLE TP SCH ×2 (08:28→20:23)
--- NOTE | 2019-01-30 08:48 | NUR ---
RT PT RECEIVED ON COOL AEROSOL AT 5 LPM. TRACHED WITH SHILEY 8. NO RESPIRATORY DISTRESS. HOB AT 30 DEGREES. AMBU BAG AT HEAD OF BED. SPARE TRACH AT BEDSIDE. WILL CONTINUE TO MONITOR. Addendum: 01/30/19 at 0906 by LIU MARTINES RT Amended: Links added.
[2019-01-30] MEDS: NYSTATIN/TRIAMCIN 15 GM CREAM 15 GM TUBE TP SCH ×2 (09:00→22:00)
[2019-01-30] MEDS: HYDROGEL DRESSING 90 GM TUBE TP SCH ×2 (09:00→22:00)
[2019-01-30] MEDS: CALCITRIOL 0.25 MCG CAPSULE PO SCH (09:00)
[2019-01-30] MEDS: CALCIUM CARBONATE 500 MG TAB.CHEW GT SCH ×3 (09:00→17:54)
[2019-01-30] MEDS: MULTIVIT W/MINERALS 1 TAB TABLET GT SCH (09:00)
[2019-01-30] MEDS: GABAPENTIN 250 MG/5 ML GT SCH ×3 (09:00→17:54)
[2019-01-30] MEDS: BACLOFEN (10 MG) 10 MG TABLET GT SCH ×4 (09:00→21:18)
[2019-01-30] MEDS: ACIDOPHILUS/BULGARICUS 1 EACH TAB.CHEW GT SCH ×3 (09:00→17:54)
[2019-01-30] MEDS: ESCITALOPRAM OXALATE (10 MG) 10 MG TABLET GT SCH (09:00)
[2019-01-30] MEDS: FAMOTIDINE (20 MG) 20 MG TABLET GT SCH ×2 (09:00→21:19)
[2019-01-30] MEDS: THERAHONEY GEL 1.5 OZ TUBE TP SCH ×6 (09:00→22:00)
[2019-01-30] MEDS: HYDROCODONE/APAP 5/325MG 1 EACH TABLET GT SCH ×2 (09:00→21:19)
[2019-01-30] MEDS: METHADONE HCL 10 MG TABLET GT SCH ×2 (09:00→22:10)
[2019-01-30] MEDS: PROSTAT (PYXIS) 30 ML UDC GT SCH ×3 (09:00→17:54)
[2019-01-30] MEDS: ASCORBIC ACID 500 MG TABLET GT SCH ×2 (09:00→17:54)
[2019-01-30 09:23] VITALS: BP 129/73
--- NOTE | 2019-01-30 15:30 | NUR ---
Seen and examined by Peggy Hoffman no new order given.
[2019-01-30] MEDS: METHOCARBAMOL (750MG) 750 MG TABLET GT PRN (18:09)
[2019-01-30 20:11] VITALS: BP 114/65
--- NOTE | 2019-01-30 20:21 | NUR ---
RT NOTE PT RECEIVED TRACHED ON COOL AEROSOL @ 28%. AWAKE/ALERT. AMBU BAG/BACK UP TRACH @ BEDSIDE. TX GIVEN, NO ADVERSE REACTIONS NOTED. SX DONE, TRACH SECURED AND PATENT. WILL PLACE ON VENT @ 0000 PER MD ORDER. VENT PLUGGED TO RED OUTLET. NO SOB NOTED AT THIS TIME. WILL MONITOR. CONT. PULSE OX CONNECTED. Addendum: 01/30/19 at 2022 by VERNELL CHRISTINE RT Amended: Links added.
[2019-01-30] MEDS: ZINC SULFATE 220 MG CAPSULE GT SCH (21:19)
[2019-01-30] MEDS: ENOXAPARIN SODIUM 40 MG/0.4 ML DISP.SYRIN SQ SCH (21:20)
[2019-01-30] MEDS: POLYETHYLENE GLYCOL 3350 17 GM POWD.PACK GT SCH (21:21)
[2019-01-30] MEDS: ATORVASTATIN 10 MG TABLET GT SCH (21:21)
[2019-01-31] MEDS: IPRATROPIUM NEB FS 0.5 MG/2.5 ML AMPUL.NEB NEB SCH ×4 (01:14→19:58)
[2019-01-31] MEDS: SUCRALFATE 1 G/10 ML UDC GT SCH ×4 (06:06→21:22)
[2019-01-31 07:40] VITALS: BP 107/62
[2019-01-31] MEDS: METHADONE HCL 10 MG TABLET GT SCH ×2 (09:35→21:22)
[2019-01-31] MEDS: ESCITALOPRAM OXALATE (10 MG) 10 MG TABLET GT SCH (09:35)
[2019-01-31] MEDS: ACIDOPHILUS/BULGARICUS 1 EACH TAB.CHEW GT SCH ×3 (09:35→17:46)
[2019-01-31] MEDS: GABAPENTIN 250 MG/5 ML GT SCH ×3 (09:35→17:46)
[2019-01-31] MEDS: BACLOFEN (10 MG) 10 MG TABLET GT SCH ×4 (09:35→21:22)
[2019-01-31] MEDS: CALCIUM CARBONATE 500 MG TAB.CHEW GT SCH ×3 (09:36→17:46)
[2019-01-31] MEDS: MULTIVIT W/MINERALS 1 TAB TABLET GT SCH (09:36)
[2019-01-31] MEDS: HYDROCODONE/APAP 5/325MG 1 EACH TABLET GT SCH ×2 (09:36→21:23)
[2019-01-31] MEDS: CALCITRIOL 0.25 MCG CAPSULE PO SCH (09:36)
[2019-01-31] MEDS: PROSTAT (PYXIS) 30 ML UDC GT SCH ×3 (09:36→17:46)
[2019-01-31] MEDS: ASCORBIC ACID 500 MG TABLET GT SCH ×2 (09:36→17:46)
[2019-01-31] MEDS: FAMOTIDINE (20 MG) 20 MG TABLET GT SCH ×2 (09:36→21:23)
[2019-01-31] MEDS: HYDROGEL DRESSING 90 GM TUBE TP SCH ×5 (10:05→21:49)
[2019-01-31] MEDS: THERAHONEY GEL 1.5 OZ TUBE TP SCH ×3 (10:05)
[2019-01-31] MEDS: NYSTATIN/TRIAMCIN 15 GM CREAM 15 GM TUBE TP SCH ×2 (10:05→21:49)
[2019-01-31] MEDS: HYDROGEN PEROXIDE 480 ML BOTTLE TP SCH ×2 (14:27→20:22)
--- NOTE | 2019-01-31 15:29 | NUR ---
RAVI assisted the pt. with his goal of contacting his family this month before [place]. RAVI requested that the pt. have his voice box placed. The pt. stated that he wanted to call his niece, Diana. RAVI called Diana with the pt.s phone and facilitated the conversation as needed. Diana expressed being happy to speak to the pt. The patient expressed contentment and thanked the SW for assisting. The pt. stated he wants to call his brother, Siva next. RAVI will assist the pt. tomorrow with calling his brother Siva.
--- NOTE | 2019-01-31 15:35 | NUR ---
Patient Care Intervention: SW encouraged the pt. to be more compliant with being turned to allow his sacral wounds to heal. The pt. stated he doesn't like to be turned because it hurts. RAVI informed pt. that the nursing staff provide pain medication prior to turning him to ease the pain. SW discussed the risks and benefits with pt. The pt. state he was in agreement and stated he would be more compliant with being turned. SW will continue to encourage the patient as needed.
--- NOTE | 2019-01-31 19:30 | NUR ---
Seen by CARLI Hoffman no new orders.
[2019-01-31 20:04] VITALS: BP 106/64
--- NOTE | 2019-01-31 21:17 | NUR ---
PT RECEIVE STABLE ON 28% FIO2 C/A VIA T-MASK, TRACH PATENT AND SECURED, BACK UP NENA AND NAIMA BAG IS AT BEDSIDE, WILL CONTINUE TO MONITOR Addendum: 01/31/19 at 2118 by YESICA CHEW RT Amended: Links added.
[2019-01-31] MEDS: POLYETHYLENE GLYCOL 3350 17 GM POWD.PACK GT SCH (21:23)
[2019-01-31] MEDS: ATORVASTATIN 10 MG TABLET GT SCH (21:23)
[2019-01-31] MEDS: ZINC SULFATE 220 MG CAPSULE GT SCH (21:23)
[2019-01-31] MEDS: ENOXAPARIN SODIUM 40 MG/0.4 ML DISP.SYRIN SQ SCH (21:23)
[2019-02-01] MEDS: IPRATROPIUM NEB FS 0.5 MG/2.5 ML AMPUL.NEB NEB SCH ×4 (01:45→19:35)
[2019-02-01] MEDS: SUCRALFATE 1 G/10 ML UDC GT SCH ×4 (05:39→20:30)
[2019-02-01 07:57] VITALS: BP 119/69
[2019-02-01] MEDS: MULTIVIT W/MINERALS 1 TAB TABLET GT SCH (09:00)
[2019-02-01] MEDS: NYSTATIN/TRIAMCIN 15 GM CREAM 15 GM TUBE TP SCH ×2 (09:00→21:45)
[2019-02-01] MEDS: CALCITRIOL 0.25 MCG CAPSULE PO SCH (09:00)
[2019-02-01] MEDS: HYDROGEN PEROXIDE 480 ML BOTTLE TP SCH ×2 (09:00→21:00)
[2019-02-01] MEDS: METHADONE HCL 10 MG TABLET GT SCH ×2 (09:00→21:37)
[2019-02-01] MEDS: HYDROGEL DRESSING 90 GM TUBE TP SCH ×8 (09:00→21:45)
[2019-02-01] MEDS: ACIDOPHILUS/BULGARICUS 1 EACH TAB.CHEW GT SCH ×3 (09:00→16:48)
[2019-02-01] MEDS: HYDROCODONE/APAP 5/325MG 1 EACH TABLET GT SCH ×2 (09:00→21:38)
[2019-02-01] MEDS: ASCORBIC ACID 500 MG TABLET GT SCH ×2 (09:00→16:49)
[2019-02-01] MEDS: CALCIUM CARBONATE 500 MG TAB.CHEW GT SCH ×3 (09:00→16:49)
[2019-02-01] MEDS: FAMOTIDINE (20 MG) 20 MG TABLET GT SCH ×2 (09:00→21:38)
[2019-02-01] MEDS: PROSTAT (PYXIS) 30 ML UDC GT SCH ×3 (09:00→16:49)
[2019-02-01] MEDS: NEOMY SULF/BACITRAC ZN/POLY 15 GM TUBE TP SCH ×2 (09:00→21:45)
[2019-02-01] MEDS: BACLOFEN (10 MG) 10 MG TABLET GT SCH ×4 (09:00→21:37)
[2019-02-01] MEDS: GABAPENTIN 250 MG/5 ML GT SCH ×3 (09:00→16:48)
[2019-02-01] MEDS: ESCITALOPRAM OXALATE (10 MG) 10 MG TABLET GT SCH (09:00)
--- NOTE | 2019-02-01 11:24 | NUR ---
Family Invitation to Holiday Lunch-In and IDT: Fashion Intern contacted the patients responsible alliance party/Sis-in Law Vilma Marley [phone] to invite her to attend the Interdisciplinary Plan of Care Conference taking place 02/08/19 from 12:30pm-1:30pm and the Family Holiday Lunch-In taking place 02/07/19 from 11:30pm-1:00pm. Per Vilma, she will try to make it to both.
[2019-02-01 20:52] VITALS: BP 106/68
[2019-02-01] MEDS: ZINC SULFATE 220 MG CAPSULE GT SCH (21:38)
[2019-02-01] MEDS: ENOXAPARIN SODIUM 40 MG/0.4 ML DISP.SYRIN SQ SCH (21:39)
[2019-02-01] MEDS: POLYETHYLENE GLYCOL 3350 17 GM POWD.PACK GT SCH (21:39)
[2019-02-01] MEDS: ATORVASTATIN 10 MG TABLET GT SCH (21:39)
--- NOTE | 2019-02-01 23:09 | NUR ---
PT RECEIVE STABLE ON CA 28% FIO2 VIA T-MASK, TRACH PATENT AND SECURED , DAMIE TRACH AND NAIMA BAG IS AT BEDSIDE , WILL CONTINUE TO MONITOR Addendum: 02/01/19 at 2311 by YESICA CHEW RT Amended: Links added.
[2019-02-02] MEDS: IPRATROPIUM NEB FS 0.5 MG/2.5 ML AMPUL.NEB NEB SCH ×4 (02:17→19:33)
[2019-02-02] MEDS: SUCRALFATE 1 G/10 ML UDC GT SCH ×4 (06:01→20:30)
[2019-02-02 07:57] VITALS: BP 118/67
[2019-02-02] MEDS: HYDROGEN PEROXIDE 480 ML BOTTLE TP SCH ×2 (08:03→21:42)
[2019-02-02] MEDS: ACIDOPHILUS/BULGARICUS 1 EACH TAB.CHEW GT SCH ×3 (09:40→17:56)
[2019-02-02] MEDS: GABAPENTIN 250 MG/5 ML GT SCH ×3 (09:40→17:56)
[2019-02-02] MEDS: MULTIVIT W/MINERALS 1 TAB TABLET GT SCH (09:41)
[2019-02-02] MEDS: ESCITALOPRAM OXALATE (10 MG) 10 MG TABLET GT SCH (09:41)
[2019-02-02] MEDS: FAMOTIDINE (20 MG) 20 MG TABLET GT SCH ×2 (09:41→21:53)
[2019-02-02] MEDS: ASCORBIC ACID 500 MG TABLET GT SCH ×2 (09:41→17:56)
[2019-02-02] MEDS: CALCIUM CARBONATE 500 MG TAB.CHEW GT SCH ×3 (09:41→17:56)
[2019-02-02] MEDS: PROSTAT (PYXIS) 30 ML UDC GT SCH ×3 (09:41→17:56)
[2019-02-02] MEDS: BACLOFEN (10 MG) 10 MG TABLET GT SCH ×4 (09:41→21:51)
[2019-02-02] MEDS: CALCITRIOL 0.25 MCG CAPSULE PO SCH (09:41)
[2019-02-02] MEDS: METHADONE HCL 10 MG TABLET GT SCH ×2 (09:43→21:52)
[2019-02-02] MEDS: HYDROCODONE/APAP 5/325MG 1 EACH TABLET GT SCH ×2 (12:40→21:52)
[2019-02-02] MEDS: NYSTATIN/TRIAMCIN 15 GM CREAM 15 GM TUBE TP SCH ×2 (13:40→21:53)
[2019-02-02] MEDS: NEOMY SULF/BACITRAC ZN/POLY 15 GM TUBE TP SCH ×2 (13:40→21:53)
[2019-02-02] MEDS: HYDROGEL DRESSING 90 GM TUBE TP SCH ×8 (13:40→21:53)
[2019-02-02 19:41] VITALS: BP 102/66
[2019-02-02] MEDS: ATORVASTATIN 10 MG TABLET GT SCH (21:53)
[2019-02-02] MEDS: ZINC SULFATE 220 MG CAPSULE GT SCH (21:53)
[2019-02-02] MEDS: ENOXAPARIN SODIUM 40 MG/0.4 ML DISP.SYRIN SQ SCH (21:53)
[2019-02-02] MEDS: POLYETHYLENE GLYCOL 3350 17 GM POWD.PACK GT SCH (21:54)
[2019-02-03] MEDS: IPRATROPIUM NEB FS 0.5 MG/2.5 ML AMPUL.NEB NEB SCH ×4 (01:48→19:36)
[2019-02-03] MEDS: SUCRALFATE 1 G/10 ML UDC GT SCH ×4 (06:33→21:18)
[2019-02-03 07:39] VITALS: BP 121/60
[2019-02-03] MEDS: HYDROGEN PEROXIDE 480 ML BOTTLE TP SCH ×2 (08:15→21:05)
[2019-02-03] MEDS: CALCIUM CARBONATE 500 MG TAB.CHEW GT SCH ×3 (09:00→16:16)
[2019-02-03] MEDS: FAMOTIDINE (20 MG) 20 MG TABLET GT SCH ×2 (09:00→21:20)
[2019-02-03] MEDS: ACIDOPHILUS/BULGARICUS 1 EACH TAB.CHEW GT SCH ×3 (09:00→16:16)
[2019-02-03] MEDS: ASCORBIC ACID 500 MG TABLET GT SCH ×2 (09:00→16:16)
[2019-02-03] MEDS: NEOMY SULF/BACITRAC ZN/POLY 15 GM TUBE TP SCH ×2 (09:00→21:21)
[2019-02-03] MEDS: METHADONE HCL 10 MG TABLET GT SCH ×2 (09:00→21:19)
[2019-02-03] MEDS: GABAPENTIN 250 MG/5 ML GT SCH ×3 (09:00→16:16)
[2019-02-03] MEDS: CALCITRIOL 0.25 MCG CAPSULE PO SCH (09:00)
[2019-02-03] MEDS: MULTIVIT W/MINERALS 1 TAB TABLET GT SCH (09:00)
[2019-02-03] MEDS: BACLOFEN (10 MG) 10 MG TABLET GT SCH ×4 (09:00→21:18)
[2019-02-03] MEDS: PROSTAT (PYXIS) 30 ML UDC GT SCH ×3 (09:00→16:16)
[2019-02-03] MEDS: HYDROGEL DRESSING 90 GM TUBE TP SCH ×8 (09:00→21:21)
[2019-02-03] MEDS: NYSTATIN/TRIAMCIN 15 GM CREAM 15 GM TUBE TP SCH ×2 (09:00→21:21)
[2019-02-03] MEDS: ESCITALOPRAM OXALATE (10 MG) 10 MG TABLET GT SCH (09:00)
[2019-02-03] MEDS: HYDROCODONE/APAP 5/325MG 1 EACH TABLET GT SCH ×2 (10:30→21:20)
[2019-02-03 21:00] VITALS: BP 108/62
[2019-02-03] MEDS: ENOXAPARIN SODIUM 40 MG/0.4 ML DISP.SYRIN SQ SCH (21:20)
[2019-02-03] MEDS: ZINC SULFATE 220 MG CAPSULE GT SCH (21:20)
[2019-02-03] MEDS: ATORVASTATIN 10 MG TABLET GT SCH (21:21)
[2019-02-03] MEDS: POLYETHYLENE GLYCOL 3350 17 GM POWD.PACK GT SCH (21:21)
[2019-02-04] MEDS: IPRATROPIUM NEB FS 0.5 MG/2.5 ML AMPUL.NEB NEB SCH ×4 (01:35→19:59)
[2019-02-04] MEDS: SUCRALFATE 1 G/10 ML UDC GT SCH ×4 (06:13→21:03)
[2019-02-04 07:49] VITALS: BP 129/70
[2019-02-04] MEDS: HYDROGEN PEROXIDE 480 ML BOTTLE TP SCH ×2 (08:14→21:00)
[2019-02-04] MEDS: PROSTAT (PYXIS) 30 ML UDC GT SCH ×3 (09:00→16:55)
[2019-02-04] MEDS: ACIDOPHILUS/BULGARICUS 1 EACH TAB.CHEW GT SCH ×3 (09:00→16:55)
[2019-02-04] MEDS: CALCIUM CARBONATE 500 MG TAB.CHEW GT SCH ×3 (09:00→16:55)
[2019-02-04] MEDS: ESCITALOPRAM OXALATE (10 MG) 10 MG TABLET GT SCH (09:00)
[2019-02-04] MEDS: METHADONE HCL 10 MG TABLET GT SCH ×2 (09:00→21:54)
[2019-02-04] MEDS: GABAPENTIN 250 MG/5 ML GT SCH ×3 (09:00→16:55)
[2019-02-04] MEDS: MULTIVIT W/MINERALS 1 TAB TABLET GT SCH (09:00)
[2019-02-04] MEDS: FAMOTIDINE (20 MG) 20 MG TABLET GT SCH ×2 (09:00→21:03)
[2019-02-04] MEDS: ASCORBIC ACID 500 MG TABLET GT SCH ×2 (09:00→16:55)
[2019-02-04] MEDS: BACLOFEN (10 MG) 10 MG TABLET GT SCH ×4 (09:00→21:03)
[2019-02-04] MEDS: CALCITRIOL 0.25 MCG CAPSULE PO SCH (09:00)
[2019-02-04] MEDS: HYDROCODONE/APAP 5/325MG 1 EACH TABLET GT SCH ×2 (10:30→21:03)
[2019-02-04] MEDS: HYDROGEL DRESSING 90 GM TUBE TP SCH ×8 (11:00→21:45)
[2019-02-04] MEDS: NYSTATIN/TRIAMCIN 15 GM CREAM 15 GM TUBE TP SCH ×2 (11:00→21:45)
[2019-02-04] MEDS: NEOMY SULF/BACITRAC ZN/POLY 15 GM TUBE TP SCH ×2 (11:00→21:45)
[2019-02-04 20:44] VITALS: BP 119/72
[2019-02-04] MEDS: POLYETHYLENE GLYCOL 3350 17 GM POWD.PACK GT SCH (21:04)
[2019-02-04] MEDS: ATORVASTATIN 10 MG TABLET GT SCH (21:04)
[2019-02-04] MEDS: ENOXAPARIN SODIUM 40 MG/0.4 ML DISP.SYRIN SQ SCH (21:04)
[2019-02-04] MEDS: ZINC SULFATE 220 MG CAPSULE GT SCH (21:44)
--- NOTE | 2019-02-05 00:12 | NUR ---
RT NOTE Pt rec'd on Cool Aerosol @ 28% fio2 at 5LPM. Pt placed on mech vent on AC mode per md orders. pt awake and alert. Trach is patent and secured. No resp distress or sob noted. sx'd for thick mod amt of pale yellow secretions. Alarms are set and audible. Vent plugged into red outlet. Ambu bag bedside. Will continue to monitor closely. Addendum: 02/05/19 at 0014 by CAITLIN SOTO RT Amended: Links added.
[2019-02-05] MEDS: IPRATROPIUM NEB FS 0.5 MG/2.5 ML AMPUL.NEB NEB SCH ×4 (01:13→19:53)
[2019-02-05] MEDS: HYDROGEN PEROXIDE 480 ML BOTTLE TP SCH ×2 (09:00→21:00)
[2019-02-05] MEDS: GABAPENTIN 250 MG/5 ML GT SCH ×3 (09:35→17:51)
[2019-02-05] MEDS: ACIDOPHILUS/BULGARICUS 1 EACH TAB.CHEW GT SCH ×3 (09:35→17:51)
[2019-02-05] MEDS: ESCITALOPRAM OXALATE (10 MG) 10 MG TABLET GT SCH (09:35)
[2019-02-05] MEDS: METHADONE HCL 10 MG TABLET GT SCH ×2 (09:36→21:00)
[2019-02-05] MEDS: HYDROCODONE/APAP 5/325MG 1 EACH TABLET GT SCH ×2 (09:36→21:01)
[2019-02-05] MEDS: BACLOFEN (10 MG) 10 MG TABLET GT SCH ×4 (09:36→21:00)
[2019-02-05] MEDS: MULTIVIT W/MINERALS 1 TAB TABLET GT SCH (09:37)
[2019-02-05] MEDS: CALCITRIOL 0.25 MCG CAPSULE PO SCH (09:37)
[2019-02-05] MEDS: ASCORBIC ACID 500 MG TABLET GT SCH ×2 (09:37→17:51)
[2019-02-05] MEDS: PROSTAT (PYXIS) 30 ML UDC GT SCH ×3 (09:37→17:51)
[2019-02-05] MEDS: CALCIUM CARBONATE 500 MG TAB.CHEW GT SCH ×3 (09:37→17:51)
[2019-02-05] MEDS: HYDROGEL DRESSING 90 GM TUBE TP SCH ×8 (09:37→21:02)
[2019-02-05] MEDS: FAMOTIDINE (20 MG) 20 MG TABLET GT SCH ×2 (09:37→21:01)
[2019-02-05] MEDS: NEOMY SULF/BACITRAC ZN/POLY 15 GM TUBE TP SCH ×2 (09:38→21:02)
[2019-02-05] MEDS: NYSTATIN/TRIAMCIN 15 GM CREAM 15 GM TUBE TP SCH ×2 (09:38→21:02)
[2019-02-05] MEDS: SUCRALFATE 1 G/10 ML UDC GT SCH ×3 (11:30→21:00)
[2019-02-05 12:40] VITALS: BP 126/76
[2019-02-05 21:00] VITALS: BP 116/64
[2019-02-05] MEDS: ENOXAPARIN SODIUM 40 MG/0.4 ML DISP.SYRIN SQ SCH (21:01)
[2019-02-05] MEDS: ZINC SULFATE 220 MG CAPSULE GT SCH (21:01)
[2019-02-05] MEDS: ATORVASTATIN 10 MG TABLET GT SCH (21:02)
[2019-02-05] MEDS: POLYETHYLENE GLYCOL 3350 17 GM POWD.PACK GT SCH (21:02)
[2019-02-06] MEDS: IPRATROPIUM NEB FS 0.5 MG/2.5 ML AMPUL.NEB NEB SCH ×4 (01:24→19:33)
[2019-02-06] MEDS: SUCRALFATE 1 G/10 ML UDC GT SCH ×4 (05:54→21:27)
[2019-02-06 07:49] VITALS: BP 118/77
[2019-02-06] MEDS: HYDROGEN PEROXIDE 480 ML BOTTLE TP SCH ×2 (08:04→21:00)
[2019-02-06] MEDS: METHADONE HCL 10 MG TABLET GT SCH ×2 (09:00→21:27)
[2019-02-06] MEDS: CALCIUM CARBONATE 500 MG TAB.CHEW GT SCH ×3 (09:00→17:37)
[2019-02-06] MEDS: ESCITALOPRAM OXALATE (10 MG) 10 MG TABLET GT SCH (09:00)
[2019-02-06] MEDS: GABAPENTIN 250 MG/5 ML GT SCH ×3 (09:00→17:37)
[2019-02-06] MEDS: ASCORBIC ACID 500 MG TABLET GT SCH ×2 (09:00→17:37)
[2019-02-06] MEDS: PROSTAT (PYXIS) 30 ML UDC GT SCH ×3 (09:00→17:37)
[2019-02-06] MEDS: BACLOFEN (10 MG) 10 MG TABLET GT SCH ×4 (09:00→21:27)
[2019-02-06] MEDS: CALCITRIOL 0.25 MCG CAPSULE PO SCH (09:00)
[2019-02-06] MEDS: FAMOTIDINE (20 MG) 20 MG TABLET GT SCH ×2 (09:00→21:28)
[2019-02-06] MEDS: ACIDOPHILUS/BULGARICUS 1 EACH TAB.CHEW GT SCH ×3 (09:00→17:37)
[2019-02-06] MEDS: MULTIVIT W/MINERALS 1 TAB TABLET GT SCH (09:00)
[2019-02-06] MEDS: HYDROCODONE/APAP 5/325MG 1 EACH TABLET GT SCH ×2 (10:00→21:28)
[2019-02-06] MEDS: NEOMY SULF/BACITRAC ZN/POLY 15 GM TUBE TP SCH ×2 (10:30→21:54)
[2019-02-06] MEDS: NYSTATIN/TRIAMCIN 15 GM CREAM 15 GM TUBE TP SCH ×2 (10:30→21:54)
[2019-02-06] MEDS: HYDROGEL DRESSING 90 GM TUBE TP SCH ×7 (10:30→21:54)
[2019-02-06 21:08] VITALS: BP 118/80
[2019-02-06] MEDS: ZINC SULFATE 220 MG CAPSULE GT SCH (21:28)
[2019-02-06] MEDS: POLYETHYLENE GLYCOL 3350 17 GM POWD.PACK GT SCH (21:28)
[2019-02-06] MEDS: ATORVASTATIN 10 MG TABLET GT SCH (21:28)
[2019-02-06] MEDS: ENOXAPARIN SODIUM 40 MG/0.4 ML DISP.SYRIN SQ SCH (21:29)
[2019-02-07] MEDS: IPRATROPIUM NEB FS 0.5 MG/2.5 ML AMPUL.NEB NEB SCH ×4 (00:48→19:45)
[2019-02-07] MEDS: SUCRALFATE 1 G/10 ML UDC GT SCH ×4 (06:13→20:30)
[2019-02-07 08:00] VITALS: BP 120/73
[2019-02-07] MEDS: HYDROGEN PEROXIDE 480 ML BOTTLE TP SCH ×2 (09:00→21:09)
[2019-02-07] MEDS: ACIDOPHILUS/BULGARICUS 1 EACH TAB.CHEW GT SCH ×3 (09:10→17:26)
[2019-02-07] MEDS: METHADONE HCL 10 MG TABLET GT SCH ×2 (09:10→21:00)
[2019-02-07] MEDS: BACLOFEN (10 MG) 10 MG TABLET GT SCH ×4 (09:10→21:00)
[2019-02-07] MEDS: ESCITALOPRAM OXALATE (10 MG) 10 MG TABLET GT SCH (09:10)
[2019-02-07] MEDS: GABAPENTIN 250 MG/5 ML GT SCH ×3 (09:10→17:26)
[2019-02-07] MEDS: HYDROCODONE/APAP 5/325MG 1 EACH TABLET GT SCH ×3 (09:11→22:00)
[2019-02-07] MEDS: FAMOTIDINE (20 MG) 20 MG TABLET GT SCH ×2 (09:11→21:00)
[2019-02-07] MEDS: PROSTAT (PYXIS) 30 ML UDC GT SCH ×3 (09:11→17:26)
[2019-02-07] MEDS: CALCIUM CARBONATE 500 MG TAB.CHEW GT SCH ×3 (09:11→17:26)
[2019-02-07] MEDS: MULTIVIT W/MINERALS 1 TAB TABLET GT SCH (09:11)
[2019-02-07] MEDS: CALCITRIOL 0.25 MCG CAPSULE PO SCH (09:11)
[2019-02-07] MEDS: ASCORBIC ACID 500 MG TABLET GT SCH ×2 (09:11→17:26)
[2019-02-07] MEDS: NEOMY SULF/BACITRAC ZN/POLY 15 GM TUBE TP SCH ×2 (09:40→21:00)
[2019-02-07] MEDS: NYSTATIN/TRIAMCIN 15 GM CREAM 15 GM TUBE TP SCH ×2 (09:40→21:00)
[2019-02-07] MEDS: HYDROGEL DRESSING 90 GM TUBE TP SCH ×8 (09:40→21:00)
[2019-02-07 20:48] VITALS: BP 105/62
[2019-02-07] MEDS: ZINC SULFATE 220 MG CAPSULE GT SCH (21:00)
[2019-02-07] MEDS: ENOXAPARIN SODIUM 40 MG/0.4 ML DISP.SYRIN SQ SCH (21:00)
[2019-02-07] MEDS: POLYETHYLENE GLYCOL 3350 17 GM POWD.PACK GT SCH (22:21)
[2019-02-07] MEDS: ATORVASTATIN 10 MG TABLET GT SCH (22:21)
[2019-02-08] MEDS: IPRATROPIUM NEB FS 0.5 MG/2.5 ML AMPUL.NEB NEB SCH ×3 (01:57→19:53)
[2019-02-08] MEDS: SUCRALFATE 1 G/10 ML UDC GT SCH ×4 (06:40→20:58)
[2019-02-08 07:43] VITALS: BP 122/73
[2019-02-08] MEDS: HYDROCODONE/APAP 5/325MG 1 EACH TABLET GT SCH ×2 (09:00→20:59)
[2019-02-08] MEDS: HYDROGEN PEROXIDE 480 ML BOTTLE TP SCH ×2 (09:00→21:52)
[2019-02-08] MEDS: NEOMY SULF/BACITRAC ZN/POLY 15 GM TUBE TP SCH ×2 (09:30→22:00)
[2019-02-08] MEDS: HYDROGEL DRESSING 90 GM TUBE TP SCH ×8 (09:30→22:00)
[2019-02-08] MEDS: NYSTATIN/TRIAMCIN 15 GM CREAM 15 GM TUBE TP SCH ×2 (09:30→22:00)
[2019-02-08] MEDS: BACLOFEN (10 MG) 10 MG TABLET GT SCH ×4 (09:57→20:58)
[2019-02-08] MEDS: ACIDOPHILUS/BULGARICUS 1 EACH TAB.CHEW GT SCH ×3 (09:57→17:55)
[2019-02-08] MEDS: GABAPENTIN 250 MG/5 ML GT SCH ×3 (09:57→17:55)
[2019-02-08] MEDS: ESCITALOPRAM OXALATE (10 MG) 10 MG TABLET GT SCH (09:57)
[2019-02-08] MEDS: FAMOTIDINE (20 MG) 20 MG TABLET GT SCH ×2 (09:58→20:59)
[2019-02-08] MEDS: CALCITRIOL 0.25 MCG CAPSULE PO SCH (09:58)
[2019-02-08] MEDS: CALCIUM CARBONATE 500 MG TAB.CHEW GT SCH ×3 (09:58→17:56)
[2019-02-08] MEDS: ASCORBIC ACID 500 MG TABLET GT SCH ×2 (09:58→17:56)
[2019-02-08] MEDS: MULTIVIT W/MINERALS 1 TAB TABLET GT SCH (09:58)
[2019-02-08] MEDS: METHADONE HCL 10 MG TABLET GT SCH ×2 (09:58→22:32)
[2019-02-08] MEDS: PROSTAT (PYXIS) 30 ML UDC GT SCH ×3 (09:58→17:56)
--- NOTE | 2019-02-08 12:00 | NUR ---
RAVI received a phone call from the patient's friend, Bharti [phone] asking if RAVI could assist pt. with calling Bharti on the phone. RAVI assisted the pt. with calling Bharti today at 11 am. The pt. expressed excitement and happiness stating: "Oh boy! Thank You". RAVI offered to help the pt. contact his older brother, Siva per last visit request. However, the pt. refused stating, "Siva is mean, No thank you!". RAVI will continue assisting the pt. with calling loved ones for the holidays as needed.
--- NOTE | 2019-02-08 14:03 | NUR ---
INTERDISCIPLINARY PLAN OF CARE CONFERENCE was held today. The patients responsible alliance party/Vilma Marley [phone] was not able to attend or participate via phone conference. Charge nurse discussed 01/25 Lovenox resumed 40mg; Right lower diabetic ulcer Tx: apply Xenofoam cover Mepilex x 30 days; Sacral wound Tx changed to Hydrogel. Dr. Ugarte and Interdisciplinary team discussed the plan of care in detail. Current orders as well as treatments and medications were reviewed. Please see other disciplines IDT notes for further details.
[2019-02-08 20:25] VITALS: BP 124/76
[2019-02-08] MEDS: ZINC SULFATE 220 MG CAPSULE GT SCH (20:59)
[2019-02-08] MEDS: POLYETHYLENE GLYCOL 3350 17 GM POWD.PACK GT SCH (21:00)
[2019-02-08] MEDS: ATORVASTATIN 10 MG TABLET GT SCH (21:00)
[2019-02-08] MEDS: ENOXAPARIN SODIUM 40 MG/0.4 ML DISP.SYRIN SQ SCH (21:00)
--- NOTE | 2019-02-08 22:03 | NUR ---
PT RECEIVE STABLE ON CA 28% FIO2 VIA T-MASK, TRACH PATENT AND SECURED, DAMIE TRACH AND NAIMA BAG IS AT BEDSIDE , WILL CONTINUE TO MONITOR Addendum: 02/08/19 at 2205 by YESICA CHEW RT Amended: Links added.
[2019-02-09] MEDS: IPRATROPIUM NEB FS 0.5 MG/2.5 ML AMPUL.NEB NEB SCH ×4 (01:20→19:59)
[2019-02-09] MEDS: SUCRALFATE 1 G/10 ML UDC GT SCH ×4 (06:46→21:11)
[2019-02-09 08:40] VITALS: BP 119/72
[2019-02-09] MEDS: PROSTAT (PYXIS) 30 ML UDC GT SCH ×3 (09:00→17:17)
[2019-02-09] MEDS: GABAPENTIN 250 MG/5 ML GT SCH ×3 (09:00→17:17)
[2019-02-09] MEDS: FAMOTIDINE (20 MG) 20 MG TABLET GT SCH ×2 (09:00→21:11)
[2019-02-09] MEDS: ASCORBIC ACID 500 MG TABLET GT SCH ×2 (09:00→17:17)
[2019-02-09] MEDS: CALCITRIOL 0.25 MCG CAPSULE PO SCH (09:00)
[2019-02-09] MEDS: ESCITALOPRAM OXALATE (10 MG) 10 MG TABLET GT SCH (09:00)
[2019-02-09] MEDS: CALCIUM CARBONATE 500 MG TAB.CHEW GT SCH ×3 (09:00→17:17)
[2019-02-09] MEDS: ACIDOPHILUS/BULGARICUS 1 EACH TAB.CHEW GT SCH ×3 (09:00→17:17)
[2019-02-09] MEDS: HYDROGEN PEROXIDE 480 ML BOTTLE TP SCH ×2 (09:00→21:00)
[2019-02-09] MEDS: BACLOFEN (10 MG) 10 MG TABLET GT SCH ×4 (09:00→21:11)
[2019-02-09] MEDS: MULTIVIT W/MINERALS 1 TAB TABLET GT SCH (09:00)
[2019-02-09] MEDS: HYDROCODONE/APAP 5/325MG 1 EACH TABLET GT SCH ×2 (10:00→21:11)
[2019-02-09] MEDS: METHADONE HCL 10 MG TABLET GT SCH ×2 (10:00→11:57)
[2019-02-09] MEDS: HYDROGEL DRESSING 90 GM TUBE TP SCH ×8 (10:30→22:30)
[2019-02-09] MEDS: NYSTATIN/TRIAMCIN 15 GM CREAM 15 GM TUBE TP SCH ×2 (10:30→22:30)
[2019-02-09] MEDS: NEOMY SULF/BACITRAC ZN/POLY 15 GM TUBE TP SCH ×2 (10:30→22:30)
[2019-02-09 20:46] VITALS: BP 103/68
--- NOTE | 2019-02-09 20:55 | NUR ---
PT RECEIVE STABLE ON CA 28% FIO2 VIA T-MASK, TRACH PATENT AND SECURED, DAMIE TRACH AND NAIMA BAG IS AT BEDSIDE , WILL CONTINUE TO MONITOR Addendum: 02/09/19 at 2054 by YESICA CHEW RT Amended: Links added.
[2019-02-09] MEDS: ZINC SULFATE 220 MG CAPSULE GT SCH (21:11)
[2019-02-09] MEDS: ENOXAPARIN SODIUM 40 MG/0.4 ML DISP.SYRIN SQ SCH (21:12)
[2019-02-09] MEDS: ATORVASTATIN 10 MG TABLET GT SCH (21:12)
[2019-02-09] MEDS: POLYETHYLENE GLYCOL 3350 17 GM POWD.PACK GT SCH (21:12)
[2019-02-10] MEDS: IPRATROPIUM NEB FS 0.5 MG/2.5 ML AMPUL.NEB NEB SCH ×4 (01:53→20:19)
[2019-02-10] MEDS: SUCRALFATE 1 G/10 ML UDC GT SCH ×4 (05:39→20:30)
[2019-02-10] MEDS: HYDROGEN PEROXIDE 480 ML BOTTLE TP SCH ×2 (08:25→21:59)
[2019-02-10] MEDS: ACIDOPHILUS/BULGARICUS 1 EACH TAB.CHEW GT SCH ×3 (08:53→17:00)
[2019-02-10] MEDS: ESCITALOPRAM OXALATE (10 MG) 10 MG TABLET GT SCH (08:53)
[2019-02-10] MEDS: BACLOFEN (10 MG) 10 MG TABLET GT SCH ×4 (08:53→21:00)
[2019-02-10] MEDS: GABAPENTIN 250 MG/5 ML GT SCH ×3 (08:53→17:00)
[2019-02-10] MEDS: PROSTAT (PYXIS) 30 ML UDC GT SCH ×3 (08:54→17:00)
[2019-02-10] MEDS: HYDROCODONE/APAP 5/325MG 1 EACH TABLET GT SCH ×2 (08:54→22:06)
[2019-02-10] MEDS: FAMOTIDINE (20 MG) 20 MG TABLET GT SCH ×2 (08:54→21:00)
[2019-02-10] MEDS: METHADONE HCL 10 MG TABLET GT SCH ×2 (08:54→22:07)
[2019-02-10] MEDS: CALCITRIOL 0.25 MCG CAPSULE PO SCH (08:55)
[2019-02-10] MEDS: CALCIUM CARBONATE 500 MG TAB.CHEW GT SCH ×3 (08:55→17:00)
[2019-02-10] MEDS: MULTIVIT W/MINERALS 1 TAB TABLET GT SCH (08:55)
[2019-02-10] MEDS: ASCORBIC ACID 500 MG TABLET GT SCH ×2 (08:55→17:00)
[2019-02-10] MEDS: NEOMY SULF/BACITRAC ZN/POLY 15 GM TUBE TP SCH ×2 (09:00→21:00)
[2019-02-10] MEDS: HYDROGEL DRESSING 90 GM TUBE TP SCH ×8 (09:00→21:00)
[2019-02-10] MEDS: NYSTATIN/TRIAMCIN 15 GM CREAM 15 GM TUBE TP SCH ×2 (09:00→21:00)
--- NOTE | 2019-02-10 16:00 | NUR ---
Resident noted with brown mucousy discharge from his rectum. No fever, stable vital signs, denies any abdominal discomfort, abdomen soft and nondistended. Colostomy with good amount of stool output. Dr. Seaman informed, no new order given. Will continue to monitor.
[2019-02-10 16:36] VITALS: BP 116/72
[2019-02-10 19:51] VITALS: BP 107/57
[2019-02-10] MEDS: ZINC SULFATE 220 MG CAPSULE GT SCH (21:00)
[2019-02-10] MEDS: ENOXAPARIN SODIUM 40 MG/0.4 ML DISP.SYRIN SQ SCH (22:08)
[2019-02-10] MEDS: ATORVASTATIN 10 MG TABLET GT SCH (22:10)
[2019-02-10] MEDS: POLYETHYLENE GLYCOL 3350 17 GM POWD.PACK GT SCH (22:10)
[2019-02-11] MEDS: IPRATROPIUM NEB FS 0.5 MG/2.5 ML AMPUL.NEB NEB SCH ×4 (01:52→19:56)
[2019-02-11] MEDS: SUCRALFATE 1 G/10 ML UDC GT SCH ×4 (05:11→20:30)
[2019-02-11 07:41] VITALS: BP 104/62
[2019-02-11] MEDS: HYDROGEN PEROXIDE 480 ML BOTTLE TP SCH ×2 (08:15→21:18)
[2019-02-11] MEDS: METHADONE HCL 10 MG TABLET GT SCH ×2 (09:26→21:47)
[2019-02-11] MEDS: ESCITALOPRAM OXALATE (10 MG) 10 MG TABLET GT SCH (09:26)
[2019-02-11] MEDS: ACIDOPHILUS/BULGARICUS 1 EACH TAB.CHEW GT SCH ×3 (09:26→17:04)
[2019-02-11] MEDS: BACLOFEN (10 MG) 10 MG TABLET GT SCH ×4 (09:26→21:47)
[2019-02-11] MEDS: GABAPENTIN 250 MG/5 ML GT SCH ×3 (09:26→17:04)
[2019-02-11] MEDS: CALCIUM CARBONATE 500 MG TAB.CHEW GT SCH ×3 (09:27→17:04)
[2019-02-11] MEDS: CALCITRIOL 0.25 MCG CAPSULE PO SCH (09:27)
[2019-02-11] MEDS: FAMOTIDINE (20 MG) 20 MG TABLET GT SCH ×2 (09:27→21:48)
[2019-02-11] MEDS: MULTIVIT W/MINERALS 1 TAB TABLET GT SCH (09:27)
[2019-02-11] MEDS: ASCORBIC ACID 500 MG TABLET GT SCH ×2 (09:27→17:04)
[2019-02-11] MEDS: PROSTAT (PYXIS) 30 ML UDC GT SCH ×3 (09:27→17:04)
[2019-02-11] MEDS: HYDROCODONE/APAP 5/325MG 1 EACH TABLET GT SCH ×2 (10:41→21:47)
[2019-02-11] MEDS: NYSTATIN/TRIAMCIN 15 GM CREAM 15 GM TUBE TP SCH ×2 (11:30→21:50)
[2019-02-11] MEDS: HYDROGEL DRESSING 90 GM TUBE TP SCH ×8 (11:30→21:50)
[2019-02-11] MEDS: NEOMY SULF/BACITRAC ZN/POLY 15 GM TUBE TP SCH ×2 (11:30→21:50)
[2019-02-11 20:53] VITALS: BP 111/67
[2019-02-11] MEDS: ZINC SULFATE 220 MG CAPSULE GT SCH (21:48)
[2019-02-11] MEDS: ENOXAPARIN SODIUM 40 MG/0.4 ML DISP.SYRIN SQ SCH (21:49)
[2019-02-11] MEDS: POLYETHYLENE GLYCOL 3350 17 GM POWD.PACK GT SCH (21:50)
[2019-02-11] MEDS: ATORVASTATIN 10 MG TABLET GT SCH (21:50)
[2019-02-12] MEDS: IPRATROPIUM NEB FS 0.5 MG/2.5 ML AMPUL.NEB NEB SCH ×4 (02:08→20:05)
[2019-02-12] MEDS: SUCRALFATE 1 G/10 ML UDC GT SCH ×4 (05:48→20:42)
[2019-02-12] MEDS: HYDROGEN PEROXIDE 480 ML BOTTLE TP SCH ×2 (07:46→20:08)
[2019-02-12 08:22] VITALS: BP 106/69
[2019-02-12] MEDS: BACLOFEN (10 MG) 10 MG TABLET GT SCH ×4 (08:57→20:42)
[2019-02-12] MEDS: GABAPENTIN 250 MG/5 ML GT SCH ×3 (08:57→17:11)
[2019-02-12] MEDS: ACIDOPHILUS/BULGARICUS 1 EACH TAB.CHEW GT SCH ×3 (08:57→17:11)
[2019-02-12] MEDS: ESCITALOPRAM OXALATE (10 MG) 10 MG TABLET GT SCH (08:57)
[2019-02-12] MEDS: PROSTAT (PYXIS) 30 ML UDC GT SCH ×3 (08:58→17:12)
[2019-02-12] MEDS: METHADONE HCL 10 MG TABLET GT SCH ×2 (08:58→22:00)
[2019-02-12] MEDS: FAMOTIDINE (20 MG) 20 MG TABLET GT SCH ×2 (08:58→20:43)
[2019-02-12] MEDS: HYDROCODONE/APAP 5/325MG 1 EACH TABLET GT SCH ×2 (08:58→20:43)
[2019-02-12] MEDS: ASCORBIC ACID 500 MG TABLET GT SCH ×2 (08:59→17:12)
[2019-02-12] MEDS: CALCIUM CARBONATE 500 MG TAB.CHEW GT SCH ×3 (08:59→17:12)
[2019-02-12] MEDS: MULTIVIT W/MINERALS 1 TAB TABLET GT SCH (08:59)
[2019-02-12] MEDS: CALCITRIOL 0.25 MCG CAPSULE PO SCH (08:59)
[2019-02-12] MEDS: NYSTATIN/TRIAMCIN 15 GM CREAM 15 GM TUBE TP SCH ×2 (09:00→21:40)
[2019-02-12] MEDS: HYDROGEL DRESSING 90 GM TUBE TP SCH ×8 (09:00→21:40)
[2019-02-12] MEDS: NEOMY SULF/BACITRAC ZN/POLY 15 GM TUBE TP SCH ×2 (09:00→21:40)
--- NOTE | 2019-02-12 10:16 | NUR ---
Seen and examined by Dr. Ugarte, no new order given. Informed of brownish mucous drainage coming out from his rectum in small to moderate amount, with adequate output from colostomy bag. Will continue to monitor.
[2019-02-12 19:47] VITALS: BP 123/67
--- NOTE | 2019-02-12 20:25 | NUR ---
PT RCVD TRACH'D ON COOL AEROSOL WITH CHARTED SETTINGS. PT TERRANCE TX WELL. SX DONE. PT TRACH IS PATENT AND SECURE. AMBU BAG AT BEDSIDE. NO SOB NOTED. Addendum: 02/12/19 at 2025 by LUCIANA TRIMBLE RT Amended: Links added.
[2019-02-12] MEDS: ZINC SULFATE 220 MG CAPSULE GT SCH (20:43)
[2019-02-12] MEDS: ENOXAPARIN SODIUM 40 MG/0.4 ML DISP.SYRIN SQ SCH (20:44)
[2019-02-12] MEDS: POLYETHYLENE GLYCOL 3350 17 GM POWD.PACK GT SCH (21:40)
[2019-02-12] MEDS: ATORVASTATIN 10 MG TABLET GT SCH (21:40)
[2019-02-13] MEDS: IPRATROPIUM NEB FS 0.5 MG/2.5 ML AMPUL.NEB NEB SCH ×4 (00:44→19:16)
[2019-02-13] MEDS: SUCRALFATE 1 G/10 ML UDC GT SCH ×4 (05:49→20:26)
[2019-02-13] MEDS: HYDROGEN PEROXIDE 480 ML BOTTLE TP SCH ×2 (08:05→19:17)
[2019-02-13 08:43] VITALS: BP 119/71
[2019-02-13] MEDS: HYDROGEL DRESSING 90 GM TUBE TP SCH ×8 (09:00→20:27)
[2019-02-13] MEDS: NEOMY SULF/BACITRAC ZN/POLY 15 GM TUBE TP SCH ×2 (09:00→20:28)
[2019-02-13] MEDS: NYSTATIN/TRIAMCIN 15 GM CREAM 15 GM TUBE TP SCH (09:00)
[2019-02-13] MEDS: BACLOFEN (10 MG) 10 MG TABLET GT SCH ×4 (09:04→20:26)
[2019-02-13] MEDS: ESCITALOPRAM OXALATE (10 MG) 10 MG TABLET GT SCH (09:04)
[2019-02-13] MEDS: METHADONE HCL 10 MG TABLET GT SCH ×2 (09:06→20:27)
[2019-02-13] MEDS: CALCITRIOL 0.25 MCG CAPSULE PO SCH (09:06)
[2019-02-13] MEDS: ASCORBIC ACID 500 MG TABLET GT SCH ×2 (09:06→16:37)
[2019-02-13] MEDS: FAMOTIDINE (20 MG) 20 MG TABLET GT SCH ×2 (09:06→20:27)
[2019-02-13] MEDS: PROSTAT (PYXIS) 30 ML UDC GT SCH ×3 (09:06→16:37)
[2019-02-13] MEDS: CALCIUM CARBONATE 500 MG TAB.CHEW GT SCH ×3 (09:06→16:37)
[2019-02-13] MEDS: MULTIVIT W/MINERALS 1 TAB TABLET GT SCH (09:06)
[2019-02-13] MEDS: HYDROCODONE/APAP 5/325MG 1 EACH TABLET GT SCH ×2 (09:06→20:27)
[2019-02-13] MEDS: ACIDOPHILUS/BULGARICUS 1 EACH TAB.CHEW GT SCH ×3 (09:12→16:37)
[2019-02-13] MEDS: GABAPENTIN 250 MG/5 ML GT SCH ×3 (09:12→16:37)
[2019-02-13 20:19] VITALS: BP 120/67
[2019-02-13] MEDS: ZINC SULFATE 220 MG CAPSULE GT SCH (20:27)
[2019-02-13] MEDS: ENOXAPARIN SODIUM 40 MG/0.4 ML DISP.SYRIN SQ SCH (20:27)
[2019-02-13] MEDS: POLYETHYLENE GLYCOL 3350 17 GM POWD.PACK GT SCH (22:15)
[2019-02-13] MEDS: ATORVASTATIN 10 MG TABLET GT SCH (22:15)
[2019-02-14] MEDS: IPRATROPIUM NEB FS 0.5 MG/2.5 ML AMPUL.NEB NEB SCH ×4 (02:02→19:49)
--- NOTE | 2019-02-14 02:39 | NUR ---
PATIENT RECEIVED ON 28% AEROSOL T-TUBE THEN PLACED ON VENT SUPPORT FOR THE NIGHT WITH SETTINGS OF AC 12, 450 VT, 28%, +0. GIVEN IN-LINE TREATMENTS WITH NO ADVERSE REACTIONS. AMBU BAG AT BEDSIDE. VENT AND PULSE OXIMETER ALARMS AUDIBLE AND VISIBLE. VENT PLUGGED INTO RED OUTLET. TRACH CARE DONE. Addendum: 02/14/19 at 0245 by ROLY BECERRIL RT Amended: Links added.
--- NOTE | 2019-02-14 06:06 | NUR ---
PT PLACED ON COOL AEROSOL 28% PER MD ORDER. RN NOTIFIED.
[2019-02-14] MEDS: SUCRALFATE 1 G/10 ML UDC GT SCH ×4 (06:41→20:40)
[2019-02-14 07:37] VITALS: BP 105/59
[2019-02-14] MEDS: HYDROGEN PEROXIDE 480 ML BOTTLE TP SCH ×2 (08:17→20:42)
[2019-02-14] MEDS: ASCORBIC ACID 500 MG TABLET GT SCH ×2 (09:00→17:32)
[2019-02-14] MEDS: GABAPENTIN 250 MG/5 ML GT SCH ×3 (09:00→17:32)
[2019-02-14] MEDS: PROSTAT (PYXIS) 30 ML UDC GT SCH ×3 (09:00→17:32)
[2019-02-14] MEDS: BACLOFEN (10 MG) 10 MG TABLET GT SCH ×4 (09:00→20:40)
[2019-02-14] MEDS: ESCITALOPRAM OXALATE (10 MG) 10 MG TABLET GT SCH (09:00)
[2019-02-14] MEDS: FAMOTIDINE (20 MG) 20 MG TABLET GT SCH ×2 (09:00→20:41)
[2019-02-14] MEDS: CALCIUM CARBONATE 500 MG TAB.CHEW GT SCH ×3 (09:00→17:32)
[2019-02-14] MEDS: ACIDOPHILUS/BULGARICUS 1 EACH TAB.CHEW GT SCH ×3 (09:00→17:32)
[2019-02-14] MEDS: MULTIVIT W/MINERALS 1 TAB TABLET GT SCH (09:00)
[2019-02-14] MEDS: CALCITRIOL 0.25 MCG CAPSULE PO SCH (09:00)
[2019-02-14] MEDS: METHADONE HCL 10 MG TABLET GT SCH ×2 (10:15→20:41)
[2019-02-14] MEDS: HYDROCODONE/APAP 5/325MG 1 EACH TABLET GT SCH ×2 (10:15→20:41)
[2019-02-14] MEDS: NEOMY SULF/BACITRAC ZN/POLY 15 GM TUBE TP SCH ×2 (10:45→20:42)
[2019-02-14] MEDS: HYDROGEL DRESSING 90 GM TUBE TP SCH ×8 (10:45→20:42)
--- NOTE | 2019-02-14 13:09 | NUR ---
Seen by Dr Seaman. Pt complained of pain. Dr Seaman ordered to increase Methadone from 15 to 20 mg GT q 12 hours. He informed pt.
--- NOTE | 2019-02-14 13:09 | NUR ---
Pt does not have brownish mucous discharge from the rectum anymore. Notified Dr Seaman. He said it sometimes happens.
[2019-02-14] MEDS: ENOXAPARIN SODIUM 40 MG/0.4 ML DISP.SYRIN SQ SCH (20:41)
[2019-02-14] MEDS: ZINC SULFATE 220 MG CAPSULE GT SCH (20:41)
[2019-02-14] MEDS: MAGNESIUM HYDROXIDE 30 ML UDC GT PRN (20:42)
[2019-02-14] MEDS: POLYETHYLENE GLYCOL 3350 17 GM POWD.PACK GT SCH (21:10)
[2019-02-14] MEDS: ATORVASTATIN 10 MG TABLET GT SCH (21:10)
[2019-02-14 21:47] VITALS: BP 111/69
[2019-02-15] MEDS: IPRATROPIUM NEB FS 0.5 MG/2.5 ML AMPUL.NEB NEB SCH ×4 (01:27→20:02)
[2019-02-15] MEDS: SUCRALFATE 1 G/10 ML UDC GT SCH ×4 (05:41→20:27)
[2019-02-15] MEDS: METHOCARBAMOL (750MG) 750 MG TABLET GT PRN (05:41)
[2019-02-15 07:59] VITALS: BP 114/62
[2019-02-15] MEDS: HYDROGEN PEROXIDE 480 ML BOTTLE TP SCH ×2 (09:00→20:02)
[2019-02-15] MEDS: ACIDOPHILUS/BULGARICUS 1 EACH TAB.CHEW GT SCH ×3 (09:26→17:10)
[2019-02-15] MEDS: GABAPENTIN 250 MG/5 ML GT SCH ×3 (09:26→17:10)
[2019-02-15] MEDS: CALCITRIOL 0.25 MCG CAPSULE PO SCH (09:27)
[2019-02-15] MEDS: PROSTAT (PYXIS) 30 ML UDC GT SCH ×3 (09:27→17:10)
[2019-02-15] MEDS: BACLOFEN (10 MG) 10 MG TABLET GT SCH ×4 (09:27→20:27)
[2019-02-15] MEDS: FAMOTIDINE (20 MG) 20 MG TABLET GT SCH ×2 (09:27→20:29)
[2019-02-15] MEDS: CALCIUM CARBONATE 500 MG TAB.CHEW GT SCH ×3 (09:27→17:10)
[2019-02-15] MEDS: HYDROCODONE/APAP 5/325MG 1 EACH TABLET GT SCH ×2 (09:27→20:29)
[2019-02-15] MEDS: METHADONE HCL 10 MG TABLET GT SCH ×2 (09:27→20:28)
[2019-02-15] MEDS: ASCORBIC ACID 500 MG TABLET GT SCH ×2 (09:27→17:10)
[2019-02-15] MEDS: ESCITALOPRAM OXALATE (10 MG) 10 MG TABLET GT SCH (09:27)
[2019-02-15] MEDS: MULTIVIT W/MINERALS 1 TAB TABLET GT SCH (09:27)
[2019-02-15] MEDS: NEOMY SULF/BACITRAC ZN/POLY 15 GM TUBE TP SCH ×2 (10:00→20:30)
[2019-02-15] MEDS: HYDROGEL DRESSING 90 GM TUBE TP SCH ×8 (10:00→20:30)
[2019-02-15] MEDS: ZINC SULFATE 220 MG CAPSULE GT SCH (20:29)
[2019-02-15] MEDS: ENOXAPARIN SODIUM 40 MG/0.4 ML DISP.SYRIN SQ SCH (20:30)
[2019-02-15] MEDS: ATORVASTATIN 10 MG TABLET GT SCH (21:06)
[2019-02-15] MEDS: POLYETHYLENE GLYCOL 3350 17 GM POWD.PACK GT SCH (21:06)
--- NOTE | 2019-02-15 22:39 | NUR ---
PT RECEIVE STABLE ON C/A @ 28% FIO2 VIA T-MASK, TRACH PATENT AND SECURED, DAMIE NENA AND NAIMA BAG IS AT BEDSIDE, WILL CONTINUE TO MONITOR, Addendum: 02/15/19 at 2240 by YESICA CHEW RT Amended: Links added.
[2019-02-16] MEDS: IPRATROPIUM NEB FS 0.5 MG/2.5 ML AMPUL.NEB NEB SCH ×4 (02:15→19:49)
[2019-02-16] MEDS: SUCRALFATE 1 G/10 ML UDC GT SCH ×4 (05:34→20:36)
[2019-02-16 08:10] VITALS: BP 109/63
[2019-02-16] MEDS: NEOMY SULF/BACITRAC ZN/POLY 15 GM TUBE TP SCH ×2 (09:00→20:39)
[2019-02-16] MEDS: HYDROGEL DRESSING 90 GM TUBE TP SCH ×8 (09:00→20:39)
[2019-02-16] MEDS: HYDROGEN PEROXIDE 480 ML BOTTLE TP SCH ×2 (09:02→20:39)
[2019-02-16] MEDS: ACIDOPHILUS/BULGARICUS 1 EACH TAB.CHEW GT SCH ×3 (09:27→17:06)
[2019-02-16] MEDS: GABAPENTIN 250 MG/5 ML GT SCH ×3 (09:27→17:05)
[2019-02-16] MEDS: BACLOFEN (10 MG) 10 MG TABLET GT SCH ×4 (09:28→20:36)
[2019-02-16] MEDS: MULTIVIT W/MINERALS 1 TAB TABLET GT SCH (09:28)
[2019-02-16] MEDS: ESCITALOPRAM OXALATE (10 MG) 10 MG TABLET GT SCH (09:28)
[2019-02-16] MEDS: FAMOTIDINE (20 MG) 20 MG TABLET GT SCH ×2 (09:28→20:38)
[2019-02-16] MEDS: METHADONE HCL 10 MG TABLET GT SCH ×2 (09:29→20:37)
[2019-02-16] MEDS: CALCIUM CARBONATE 500 MG TAB.CHEW GT SCH ×3 (09:29→17:06)
[2019-02-16] MEDS: PROSTAT (PYXIS) 30 ML UDC GT SCH ×3 (09:29→17:06)
[2019-02-16] MEDS: ASCORBIC ACID 500 MG TABLET GT SCH ×2 (09:29→17:06)
[2019-02-16] MEDS: CALCITRIOL 0.25 MCG CAPSULE PO SCH (09:29)
[2019-02-16] MEDS: HYDROCODONE/APAP 5/325MG 1 EACH TABLET GT SCH ×2 (09:30→20:38)
[2019-02-16 19:59] VITALS: BP 111/67
[2019-02-16] MEDS: ZINC SULFATE 220 MG CAPSULE GT SCH (20:38)
[2019-02-16] MEDS: ENOXAPARIN SODIUM 40 MG/0.4 ML DISP.SYRIN SQ SCH (20:39)
[2019-02-16] MEDS: POLYETHYLENE GLYCOL 3350 17 GM POWD.PACK GT SCH (21:11)
[2019-02-16] MEDS: ATORVASTATIN 10 MG TABLET GT SCH (21:11)
[2019-02-17] MEDS: IPRATROPIUM NEB FS 0.5 MG/2.5 ML AMPUL.NEB NEB SCH ×4 (02:25→19:27)
[2019-02-17] MEDS: SUCRALFATE 1 G/10 ML UDC GT SCH ×4 (05:37→20:42)
--- NOTE | 2019-02-17 07:35 | NUR ---
Rapid Response Team was called d/t desaturation and altered LOC. At 0735 CHURN TENDER went inside the room to bring his breakfast and found resident cyanotic and unresponsive. She immediately called for help. PMV was removed, bagged resident, given 100% O2. Suctioned, trach patent, no obstruction noted. With continues bagging resident O2 sat. slowly went up to 92-95%, color turned pink and patient woke up, opened his eyes but still lethargic. 0738: TRANSPORT ANALYST arrived. VS B/P-112/65, HR- 58, O2 sat. 100%. Placed patient back to mechanical ventilator. 0745: BP- 137/65, HR- 80, RR- 22, O2 sat 100%. 0800: BP- 115/74, HR- 80, RR- 20, O2 sat. 100%, awake and verbally responsive. Positioned on high back rest. Will continue to monitor.
[2019-02-17 08:06] VITALS: BP 112/65
--- NOTE | 2019-02-17 08:23 | NUR ---
Dr. Seaman informed with new orders. STAT CBC, CMP, CXR, ABG- requested and done.
[2019-02-17 08:53] LABS: ABG BASE EXCESS 3.3 mmol/L; ABG OXYGEN SATURATION 97.7 % (92.0-98.5); ABG PCO2 56.5 mmHg (35.0-45.0); ABG PH 7.341 (7.350-7.450); ABG PO2 112.9 mmHg (75.0-100.0); AaDO2 34.6 mmHg; COHb 0.2 % (0.5-1.5); MetHb 0.4 % (0.0-1.5); O2Hb 97.1 % (94.0-97.0); SITE, ABG Left Radial
[2019-02-17 08:57] LABS: BASOPHILS % (AUTO) 0.3 % (0.0-2.0); EOSINOPHILS % (AUTO) 1.5 % (0.0-6.0); HEMATOCRIT 30 % (39-51); HEMOGLOBIN 8.7 g/dL (13.5-17.5); LYMPHOCYTES # (AUTO) 0.8 /CMM (0.8-4.8); LYMPHOCYTES % (AUTO) 5.1 % (20.0-44.0); MEAN CORPUSCULAR HGB CONC 29 g/dl (31.0-36.0); MEAN CORPUSCULAR VOLUME 73 fL (80-96); MONOCYTES % (AUTO) 6.1 % (2.0-12.0); NEUTROPHILS # (AUTO) 13.7 /CMM (1.8-8.9); PLATELET COUNT (AUTO) 344 /CMM (150-450); RED BLOOD CELL COUNT(AUTO) 4.06 MIL/uL (4.5-6.0); WHITE BLOOD COUNT (AUTO) 15.7 K/uL (4.3-11.0)
[2019-02-17] MEDS: CALCIUM CARBONATE 500 MG TAB.CHEW GT SCH ×3 (09:00→17:43)
[2019-02-17] MEDS: BACLOFEN (10 MG) 10 MG TABLET GT SCH ×4 (09:00→20:42)
[2019-02-17] MEDS: PROSTAT (PYXIS) 30 ML UDC GT SCH ×3 (09:00→17:43)
[2019-02-17] MEDS: MULTIVIT W/MINERALS 1 TAB TABLET GT SCH (09:00)
[2019-02-17] MEDS: METHADONE HCL 10 MG TABLET GT SCH ×2 (09:00→21:00)
[2019-02-17] MEDS: HYDROCODONE/APAP 5/325MG 1 EACH TABLET GT SCH ×2 (09:00→20:43)
[2019-02-17] MEDS: GABAPENTIN 250 MG/5 ML GT SCH ×3 (09:00→17:43)
[2019-02-17] MEDS: ESCITALOPRAM OXALATE (10 MG) 10 MG TABLET GT SCH (09:00)
[2019-02-17] MEDS: FAMOTIDINE (20 MG) 20 MG TABLET GT SCH ×2 (09:00→20:43)
[2019-02-17] MEDS: ACIDOPHILUS/BULGARICUS 1 EACH TAB.CHEW GT SCH ×3 (09:00→17:43)
[2019-02-17] MEDS: HYDROGEL DRESSING 90 GM TUBE TP SCH ×8 (09:00→21:26)
[2019-02-17] MEDS: ASCORBIC ACID 500 MG TABLET GT SCH ×2 (09:00→17:43)
[2019-02-17] MEDS: NEOMY SULF/BACITRAC ZN/POLY 15 GM TUBE TP SCH ×2 (09:00→21:26)
[2019-02-17] MEDS: CALCITRIOL 0.25 MCG CAPSULE PO SCH (09:00)
--- NOTE | 2019-02-17 09:00 | NUR ---
Methadone HCI 20mg not administered due to altered level of consciousness.
--- NOTE | 2019-02-17 09:00 | NUR ---
Plain 5-325mg tablet not administered due to altered level of consciousness.
[2019-02-17 09:19] LABS: CALCIUM, SERUM 8.7 mg/dL (8.5-10.1); CREATININE 0.7 mg/dL (0.6-1.3); POTASSIUM 3.8 mmol/L (3.5-5.1)
[2019-02-17] MEDS: HYDROGEN PEROXIDE 480 ML BOTTLE TP SCH ×2 (09:21→21:06)
[2019-02-17 09:25] LABS: ALBUMIN 2.4 g/dL (3.4-5.0); BILIRUBIN,TOTAL 0.2 mg/dL (0.2-1.0); TOTAL PROTEIN, SERUM 7.3 g/dL (6.4-8.2)
--- NOTE | 2019-02-17 09:50 | NUR ---
Seen and examined by Dr. Ugarte with new order and carried out. CXR result seen. Tidal Volume increased to 500 from 450. Addendum: 02/17/19 at 1812 by YA OROZCO RN ABG result seen
--- NOTE | 2019-02-17 10:21 | NUR ---
CBC, CMP, CXR and ABG result relayed to Dr. Seaman with new orders and carried out. Start Vancomycin IV and Zosyn IV- pharmacy to dose. Faxed request to [facility].
[2019-02-17] MEDS: ACETYLCYSTEINE 10% SOLN 400 MG/4 ML VIAL NEB SCH ×3 (10:30→23:19)
--- NOTE | 2019-02-17 15:00 | NUR ---
Got a call from [facility] IV pharmacist Tono, patient can't be on Zosyn coz he's allegic to N.
--- NOTE | 2019-02-17 15:18 | NUR ---
Dr. Seaman changed IV Zosyn to Meropenem per pharmacy dosing. Ordered blood culture x 2 sets before starting IV ATB. Resident awake and verbally responsive. No s/sx of distress. Afebrile. Appears comfortable. Will continue to monitor.
--- NOTE | 2019-02-17 15:30 | NUR ---
Vilma Marley notified of ARLENE and appreciated the call.
[2019-02-17] MEDS: VANCOMYCIN 1 GM in IV D5W 250ml IV SCH (16:00)
[2019-02-17] MEDS ORDERED: MEROPENEM 1 G in IV NS 0.9% 100 ML IV SCH ×2 (17:30→18:00)
[2019-02-17] MEDS: MEROPENEM 1 G in IV NS 0.9% 100 ML IV SCH (18:45)
[2019-02-17 19:52] VITALS: BP 122/70
[2019-02-17] MEDS: ZINC SULFATE 220 MG CAPSULE GT SCH (20:43)
[2019-02-17] MEDS: ENOXAPARIN SODIUM 40 MG/0.4 ML DISP.SYRIN SQ SCH (20:43)
[2019-02-17] MEDS: POLYETHYLENE GLYCOL 3350 17 GM POWD.PACK GT SCH (21:26)
[2019-02-17] MEDS: ATORVASTATIN 10 MG TABLET GT SCH (21:26)
[2019-02-18] MEDS: IPRATROPIUM NEB FS 0.5 MG/2.5 ML AMPUL.NEB NEB SCH ×4 (01:19→20:15)
[2019-02-18] MEDS: MEROPENEM 1 G in IV NS 0.9% 100 ML IV SCH ×3 (02:00→18:54)
[2019-02-18] MEDS: VANCOMYCIN 1 GM in IV D5W 250ml IV SCH ×2 (04:00→16:46)
[2019-02-18] MEDS: SUCRALFATE 1 G/10 ML UDC GT SCH ×4 (05:57→20:36)
[2019-02-18 06:16] LABS: BASOPHILS # (AUTO) 0.1 /CMM (0.0-0.2); BASOPHILS % (AUTO) 0.6 % (0.0-2.0); EOSINOPHILS % (AUTO) 1.8 % (0.0-6.0); HEMATOCRIT 29 % (39-51); HEMOGLOBIN 8.7 g/dL (13.5-17.5); LYMPHOCYTES # (AUTO) 1.4 /CMM (0.8-4.8); MEAN CORPUSCULAR HGB CONC 31 g/dl (31.0-36.0); MEAN CORPUSCULAR VOLUME 73 fL (80-96); MONOCYTES # (AUTO) 0.9 /CMM (0.1-1.30); MONOCYTES % (AUTO) 9.7 % (2.0-12.0); NEUTROPHILS # (AUTO) 7.3 /CMM (1.8-8.9); NEUTROPHILS % (AUTO) 73.9 % (43.0-81.0); PLATELET COUNT (AUTO) 324 /CMM (150-450); RED BLOOD CELL COUNT(AUTO) 3.93 MIL/uL (4.5-6.0); WHITE BLOOD COUNT (AUTO) 9.8 K/uL (4.3-11.0)
--- NOTE | 2019-02-18 06:16 | NUR ---
RT PATIENT KEPT ON VENT THROUGHOUT THE HOME ECONOMICS EXTENSION WORKER PER CHARGE NURSE.PATIENT STABLE , NO SOB NOTED .WILL CONTINUE TO MONITOR. Addendum: 02/18/19 at 0619 by ROM ARAIZA RT Amended: Links added.
[2019-02-18] MEDS: ACETYLCYSTEINE 10% SOLN 400 MG/4 ML VIAL NEB SCH ×3 (08:13→23:50)
[2019-02-18] MEDS: ALBUTEROL HALF STRENGTH 1.25 MG/3 ML VIAL.NEB IH PRN (08:13)
[2019-02-18] MEDS: HYDROGEN PEROXIDE 480 ML BOTTLE TP SCH ×2 (09:00→20:15)
[2019-02-18] MEDS: ASCORBIC ACID 500 MG TABLET GT SCH ×2 (09:59→17:11)
[2019-02-18] MEDS: BACLOFEN (10 MG) 10 MG TABLET GT SCH ×4 (09:59→20:36)
[2019-02-18] MEDS: GABAPENTIN 250 MG/5 ML GT SCH ×3 (09:59→17:11)
[2019-02-18] MEDS: CALCIUM CARBONATE 500 MG TAB.CHEW GT SCH ×3 (09:59→17:11)
[2019-02-18] MEDS: PROSTAT (PYXIS) 30 ML UDC GT SCH ×3 (09:59→17:11)
[2019-02-18] MEDS: ESCITALOPRAM OXALATE (10 MG) 10 MG TABLET GT SCH (09:59)
[2019-02-18] MEDS: METHADONE HCL 10 MG TABLET GT SCH ×2 (09:59→21:00)
[2019-02-18] MEDS: FAMOTIDINE (20 MG) 20 MG TABLET GT SCH ×2 (09:59→20:36)
[2019-02-18] MEDS: MULTIVIT W/MINERALS 1 TAB TABLET GT SCH (09:59)
[2019-02-18] MEDS: ACIDOPHILUS/BULGARICUS 1 EACH TAB.CHEW GT SCH ×3 (09:59→17:11)
[2019-02-18] MEDS: HYDROCODONE/APAP 5/325MG 1 EACH TABLET GT SCH ×2 (09:59→20:36)
[2019-02-18] MEDS: CALCITRIOL 0.25 MCG CAPSULE PO SCH (09:59)
[2019-02-18 10:22] VITALS: BP 123/69
[2019-02-18] MEDS: NEOMY SULF/BACITRAC ZN/POLY 15 GM TUBE TP SCH ×2 (10:30→21:16)
[2019-02-18] MEDS: HYDROGEL DRESSING 90 GM TUBE TP SCH ×8 (10:30→21:16)
[2019-02-18 16:05] LABS: CREATININE 0.7 mg/dL (0.6-1.3)
[2019-02-18 20:11] VITALS: BP 121/76
[2019-02-18] MEDS: ZINC SULFATE 220 MG CAPSULE GT SCH (20:36)
[2019-02-18] MEDS: ENOXAPARIN SODIUM 40 MG/0.4 ML DISP.SYRIN SQ SCH (20:37)
[2019-02-18] MEDS: POLYETHYLENE GLYCOL 3350 17 GM POWD.PACK GT SCH (21:16)
[2019-02-18] MEDS: ATORVASTATIN 10 MG TABLET GT SCH (21:16)
--- NOTE | 2019-02-18 21:37 | NUR ---
PT RECEIVE STABLE ON 28% CA VIA T-MASK, TRACH PATENT AND SECURED, SPARE TRACH AND NAIMA BAG IS AT BEDSIDE, WILL CONTINUE TO MONITOR Addendum: 02/18/19 at 2138 by YESICA CHEW RT Amended: Links added.
[2019-02-19] MEDS: IPRATROPIUM NEB FS 0.5 MG/2.5 ML AMPUL.NEB NEB SCH ×4 (01:25→19:30)
[2019-02-19] MEDS: MEROPENEM 1 G in IV NS 0.9% 100 ML IV SCH ×2 (02:00→10:50)
[2019-02-19] MEDS: VANCOMYCIN 1 GM in IV D5W 250ml IV SCH ×2 (04:00→16:00)
[2019-02-19] MEDS: SUCRALFATE 1 G/10 ML UDC GT SCH ×4 (05:34→20:42)
[2019-02-19] MEDS: ACETYLCYSTEINE 10% SOLN 400 MG/4 ML VIAL NEB SCH ×3 (07:25→23:39)
[2019-02-19 07:57] VITALS: BP 127/75
[2019-02-19] MEDS: CALCITRIOL 0.25 MCG CAPSULE PO SCH (09:00)
[2019-02-19] MEDS: HYDROCODONE/APAP 5/325MG 1 EACH TABLET GT SCH ×2 (09:00→21:37)
[2019-02-19] MEDS: FAMOTIDINE (20 MG) 20 MG TABLET GT SCH ×2 (09:00→21:34)
[2019-02-19] MEDS: HYDROGEN PEROXIDE 480 ML BOTTLE TP SCH ×2 (09:00→21:57)
[2019-02-19] MEDS: BACLOFEN (10 MG) 10 MG TABLET GT SCH ×4 (09:00→21:33)
[2019-02-19] MEDS: ACIDOPHILUS/BULGARICUS 1 EACH TAB.CHEW GT SCH ×3 (09:00→17:04)
[2019-02-19] MEDS: GABAPENTIN 250 MG/5 ML GT SCH ×3 (09:00→17:04)
[2019-02-19] MEDS: PROSTAT (PYXIS) 30 ML UDC GT SCH ×3 (09:00→17:04)
[2019-02-19] MEDS: METHADONE HCL 10 MG TABLET GT SCH ×2 (09:00→21:34)
[2019-02-19] MEDS: ASCORBIC ACID 500 MG TABLET GT SCH ×2 (09:00→17:04)
[2019-02-19] MEDS: HYDROGEL DRESSING 90 GM TUBE TP SCH ×8 (09:00→21:37)
[2019-02-19] MEDS: ESCITALOPRAM OXALATE (10 MG) 10 MG TABLET GT SCH (09:00)
[2019-02-19] MEDS: CALCIUM CARBONATE 500 MG TAB.CHEW GT SCH ×3 (09:00→17:04)
[2019-02-19] MEDS: NEOMY SULF/BACITRAC ZN/POLY 15 GM TUBE TP SCH ×2 (09:00→21:35)
[2019-02-19] MEDS: MULTIVIT W/MINERALS 1 TAB TABLET GT SCH (09:00)
--- NOTE | 2019-02-19 09:55 | NUR ---
Informed Dr Seaman of WBC 9.8 and preliminary blood culture result of no growth. Pt currently on Vancomycin and Merrem. Dr Seaman said to give Vancomycin and Merrem for a total of 5 days. Pt aware.
--- NOTE | 2019-02-19 15:14 | NUR ---
RAVI contacted the pt.s responsible democrat, Vilma Marley [phone] to inform family that [facility] patient's receive new accounts every new year and new intake paperwork must be completed. Per Vilma, she will be available "sometime next week" to complete the paperwork and will let the SW know.
[2019-02-19] MEDS: HYDROCODONE/APAP 5/325MG 1 EACH TABLET GT PRN (17:16)
[2019-02-19 20:29] VITALS: BP 114/71
[2019-02-19] MEDS: ENOXAPARIN SODIUM 40 MG/0.4 ML DISP.SYRIN SQ SCH (20:49)
[2019-02-19] MEDS: ZINC SULFATE 220 MG CAPSULE GT SCH (21:36)
[2019-02-19] MEDS: ATORVASTATIN 10 MG TABLET GT SCH (22:13)
[2019-02-19] MEDS: POLYETHYLENE GLYCOL 3350 17 GM POWD.PACK GT SCH (22:13)
[2019-02-20] MEDS: IPRATROPIUM NEB FS 0.5 MG/2.5 ML AMPUL.NEB NEB SCH ×4 (01:36→19:30)
[2019-02-20] MEDS: MEROPENEM 1 G in IV NS 0.9% 100 ML IV SCH ×3 (02:24→18:53)
[2019-02-20] MEDS: VANCOMYCIN 1 GM in IV D5W 250ml IV SCH ×2 (04:12→16:00)
[2019-02-20] MEDS: SUCRALFATE 1 G/10 ML UDC GT SCH ×4 (06:33→20:40)
[2019-02-20] MEDS: ACETYLCYSTEINE 10% SOLN 400 MG/4 ML VIAL NEB SCH ×3 (07:10→23:45)
[2019-02-20 08:00] VITALS: BP 122/75
[2019-02-20] MEDS: HYDROGEL DRESSING 90 GM TUBE TP SCH ×8 (09:00→21:25)
[2019-02-20] MEDS: NEOMY SULF/BACITRAC ZN/POLY 15 GM TUBE TP SCH ×2 (09:00→21:25)
[2019-02-20] MEDS: HYDROGEN PEROXIDE 480 ML BOTTLE TP SCH ×2 (09:00→20:01)
[2019-02-20] MEDS: HYDROCODONE/APAP 5/325MG 1 EACH TABLET GT SCH ×2 (09:10→21:26)
[2019-02-20] MEDS: ACIDOPHILUS/BULGARICUS 1 EACH TAB.CHEW GT SCH ×3 (09:45→16:57)
[2019-02-20] MEDS: GABAPENTIN 250 MG/5 ML GT SCH ×3 (09:45→17:00)
[2019-02-20] MEDS: FAMOTIDINE (20 MG) 20 MG TABLET GT SCH ×2 (09:46→21:24)
[2019-02-20] MEDS: BACLOFEN (10 MG) 10 MG TABLET GT SCH ×4 (09:46→21:24)
[2019-02-20] MEDS: CALCIUM CARBONATE 500 MG TAB.CHEW GT SCH ×3 (09:46→16:58)
[2019-02-20] MEDS: CALCITRIOL 0.25 MCG CAPSULE PO SCH (09:46)
[2019-02-20] MEDS: ESCITALOPRAM OXALATE (10 MG) 10 MG TABLET GT SCH (09:46)
[2019-02-20] MEDS: PROSTAT (PYXIS) 30 ML UDC GT SCH ×3 (09:47→16:58)
[2019-02-20] MEDS: ASCORBIC ACID 500 MG TABLET GT SCH ×2 (09:47→16:58)
[2019-02-20] MEDS: MULTIVIT W/MINERALS 1 TAB TABLET GT SCH (09:52)
[2019-02-20] MEDS: METHADONE HCL 10 MG TABLET GT SCH ×3 (09:52→21:59)
[2019-02-20 19:46] VITALS: BP 106/74
--- NOTE | 2019-02-20 20:28 | NUR ---
RT NOTE PT RECEIVED TRACHED ON COOL AEROSOL @ 28%. AMBU BAG/BACK UP TRACH @ BEDSIDE. TX GIVEN, NO ADVERSE REACTIONS NOTED. SX DONE, TRACH SECURED AND PATENT. WATER LEVEL GOOD. NO SOB NOTED. WILL PLACE ON VENT @ 0000 PER MD ORDER. CONT. PULSE OX CONNECTED. Addendum: 02/20/19 at 2028 by VERNELL CHRISTINE RT Amended: Links added.
[2019-02-20] MEDS: POLYETHYLENE GLYCOL 3350 17 GM POWD.PACK GT SCH (21:25)
[2019-02-20] MEDS: ATORVASTATIN 10 MG TABLET GT SCH (21:25)
[2019-02-20] MEDS: ZINC SULFATE 220 MG CAPSULE GT SCH (21:26)
[2019-02-20] MEDS: ENOXAPARIN SODIUM 40 MG/0.4 ML DISP.SYRIN SQ SCH (22:00)
[2019-02-21] MEDS: IPRATROPIUM NEB FS 0.5 MG/2.5 ML AMPUL.NEB NEB SCH ×2 (01:55→07:42)
[2019-02-21] MEDS: MEROPENEM 1 G in IV NS 0.9% 100 ML IV SCH (02:00)
[2019-02-21] MEDS: VANCOMYCIN 1 GM in IV D5W 250ml IV SCH (04:47)
[2019-02-21] MEDS: SUCRALFATE 1 G/10 ML UDC GT SCH (05:46)
[2019-02-21] MEDS: ACETYLCYSTEINE 10% SOLN 400 MG/4 ML VIAL NEB SCH (07:42)
[2019-02-21 07:47] VITALS: BP 118/78
--- NOTE | 2019-02-21 10:57 | NUR ---
Late entry for 02/19/19 Merrem 1800 dose was administered as ordered.
== END 2019-02-19 23:59 | disposition still patient (30) | DRG 166 ==
LOC: SA
PROVIDERS: ADMIT Internal Medicine; ATTEND Internal Medicine
PROC: 5A1955Z Respiratory Ventilation, Greater than 96 Consecutive Hours (ICD-10-PCS; principal; 2018-02-20)
PROC: 0KBP0ZZ Excision of Left Hip Muscle, Open Approach (ICD-10-PCS; 2018-03-01)
PROC: 0KBN0ZZ Excision of Right Hip Muscle, Open Approach (ICD-10-PCS; 2018-03-01)
PROC: 0JB70ZZ Excision of Back Subcutaneous Tissue and Fascia, Open Approach (ICD-10-PCS; 2018-03-01)
PROC: 0KBP0ZZ Excision of Left Hip Muscle, Open Approach (ICD-10-PCS; 2018-03-01)
PROC: 0KBN0ZZ Excision of Right Hip Muscle, Open Approach (ICD-10-PCS; 2018-03-01)
PROC: 0KBP0ZZ Excision of Left Hip Muscle, Open Approach (ICD-10-PCS; 2018-03-15)
PROC: 0KBN0ZZ Excision of Right Hip Muscle, Open Approach (ICD-10-PCS; 2018-03-15)
PROC: 0KBP0ZZ Excision of Left Hip Muscle, Open Approach (ICD-10-PCS; 2018-03-29)
PROC: 0KBN0ZZ Excision of Right Hip Muscle, Open Approach (ICD-10-PCS; 2018-03-29)
PROC: 0KBP0ZZ Excision of Left Hip Muscle, Open Approach (ICD-10-PCS; 2018-04-12)
PROC: 0KBN0ZZ Excision of Right Hip Muscle, Open Approach (ICD-10-PCS; 2018-04-12)
PROC: 0JB70ZZ Excision of Back Subcutaneous Tissue and Fascia, Open Approach (ICD-10-PCS; 2018-04-12)
PROC: 0KBP0ZZ Excision of Left Hip Muscle, Open Approach (ICD-10-PCS; 2018-04-26)
PROC: 0KBN0ZZ Excision of Right Hip Muscle, Open Approach (ICD-10-PCS; 2018-04-26)
PROC: 0JB70ZZ Excision of Back Subcutaneous Tissue and Fascia, Open Approach (ICD-10-PCS; 2018-04-26)
PROC: 0KBP0ZZ Excision of Left Hip Muscle, Open Approach (ICD-10-PCS; 2018-05-10)
PROC: 0KBN0ZZ Excision of Right Hip Muscle, Open Approach (ICD-10-PCS; 2018-05-10)
PROC: 0JB70ZZ Excision of Back Subcutaneous Tissue and Fascia, Open Approach (ICD-10-PCS; 2018-05-10)
PROC: 0KBP0ZZ Excision of Left Hip Muscle, Open Approach (ICD-10-PCS; 2018-05-24)
PROC: 0KBN0ZZ Excision of Right Hip Muscle, Open Approach (ICD-10-PCS; 2018-05-24)
PROC: 0JB70ZZ Excision of Back Subcutaneous Tissue and Fascia, Open Approach (ICD-10-PCS; 2018-05-24)
PROC: 0KBP0ZZ Excision of Left Hip Muscle, Open Approach (ICD-10-PCS; 2018-06-07)
PROC: 0KBN0ZZ Excision of Right Hip Muscle, Open Approach (ICD-10-PCS; 2018-06-07)
PROC: 0JB70ZZ Excision of Back Subcutaneous Tissue and Fascia, Open Approach (ICD-10-PCS; 2018-06-07)
PROC: 0CDWXZ0 Extraction of Upper Tooth, Single, External Approach (ICD-10-PCS; 2018-06-20)
PROC: 0KBP0ZZ Excision of Left Hip Muscle, Open Approach (ICD-10-PCS; 2018-06-28)
PROC: 0KBN0ZZ Excision of Right Hip Muscle, Open Approach (ICD-10-PCS; 2018-06-28)
PROC: 0KBP0ZZ Excision of Left Hip Muscle, Open Approach (ICD-10-PCS; 2018-07-12)
PROC: 0KBN0ZZ Excision of Right Hip Muscle, Open Approach (ICD-10-PCS; 2018-07-12)
PROC: 0JB70ZZ Excision of Back Subcutaneous Tissue and Fascia, Open Approach (ICD-10-PCS; 2018-07-12)
PROC: 0KBP0ZZ Excision of Left Hip Muscle, Open Approach (ICD-10-PCS; 2018-07-26)
PROC: 0KBN0ZZ Excision of Right Hip Muscle, Open Approach (ICD-10-PCS; 2018-07-26)
PROC: 0JB70ZZ Excision of Back Subcutaneous Tissue and Fascia, Open Approach (ICD-10-PCS; 2018-07-26)
PROC: 0KBP0ZZ Excision of Left Hip Muscle, Open Approach (ICD-10-PCS; 2018-08-09)
PROC: 0KBN0ZZ Excision of Right Hip Muscle, Open Approach (ICD-10-PCS; 2018-08-09)
PROC: 0JB70ZZ Excision of Back Subcutaneous Tissue and Fascia, Open Approach (ICD-10-PCS; 2018-08-09)
PROC: 0KBP0ZZ Excision of Left Hip Muscle, Open Approach (ICD-10-PCS; 2018-09-06)
PROC: 0KBN0ZZ Excision of Right Hip Muscle, Open Approach (ICD-10-PCS; 2018-09-06)
PROC: 0JB70ZZ Excision of Back Subcutaneous Tissue and Fascia, Open Approach (ICD-10-PCS; 2018-09-06)
PROC: 0KBP0ZZ Excision of Left Hip Muscle, Open Approach (ICD-10-PCS; 2018-09-17)
PROC: 0KBN0ZZ Excision of Right Hip Muscle, Open Approach (ICD-10-PCS; 2018-09-17)
PROC: 0JB70ZZ Excision of Back Subcutaneous Tissue and Fascia, Open Approach (ICD-10-PCS; 2018-09-17)
PROC: 0KBP0ZZ Excision of Left Hip Muscle, Open Approach (ICD-10-PCS; 2018-10-01)
PROC: 0JB70ZZ Excision of Back Subcutaneous Tissue and Fascia, Open Approach (ICD-10-PCS; 2018-10-01)
PROC: 0JB90ZZ Excision of Buttock Subcutaneous Tissue and Fascia, Open Approach (ICD-10-PCS; 2018-10-01)
PROC: 0KBP0ZZ Excision of Left Hip Muscle, Open Approach (ICD-10-PCS; 2018-10-15)
PROC: 0KBN0ZZ Excision of Right Hip Muscle, Open Approach (ICD-10-PCS; 2018-10-15)
PROC: 0JB70ZZ Excision of Back Subcutaneous Tissue and Fascia, Open Approach (ICD-10-PCS; 2018-10-15)
PROC: 0KBP0ZZ Excision of Left Hip Muscle, Open Approach (ICD-10-PCS; 2018-10-29)
PROC: 0KBN0ZZ Excision of Right Hip Muscle, Open Approach (ICD-10-PCS; 2018-10-29)
PROC: 0JB70ZZ Excision of Back Subcutaneous Tissue and Fascia, Open Approach (ICD-10-PCS; 2018-10-29)
PROC: 0KBP0ZZ Excision of Left Hip Muscle, Open Approach (ICD-10-PCS; 2018-11-12)
PROC: 0KBN0ZZ Excision of Right Hip Muscle, Open Approach (ICD-10-PCS; 2018-11-12)
PROC: 0JB70ZZ Excision of Back Subcutaneous Tissue and Fascia, Open Approach (ICD-10-PCS; 2018-11-12)
PROC: 0KBP0ZZ Excision of Left Hip Muscle, Open Approach (ICD-10-PCS; 2018-11-26)
PROC: 0KBN0ZZ Excision of Right Hip Muscle, Open Approach (ICD-10-PCS; 2018-11-26)
PROC: 0JB70ZZ Excision of Back Subcutaneous Tissue and Fascia, Open Approach (ICD-10-PCS; 2018-11-26)
PROC: 0KBP0ZZ Excision of Left Hip Muscle, Open Approach (ICD-10-PCS; 2018-12-11)
PROC: 0KBN0ZZ Excision of Right Hip Muscle, Open Approach (ICD-10-PCS; 2018-12-11)
PROC: 0JB70ZZ Excision of Back Subcutaneous Tissue and Fascia, Open Approach (ICD-10-PCS; 2018-12-11)
PROC: 0KBP0ZZ Excision of Left Hip Muscle, Open Approach (ICD-10-PCS; 2018-12-20)
PROC: 0KBN0ZZ Excision of Right Hip Muscle, Open Approach (ICD-10-PCS; 2018-12-20)
PROC: 0JB70ZZ Excision of Back Subcutaneous Tissue and Fascia, Open Approach (ICD-10-PCS; 2018-12-20)
PROC: 0KBP0ZZ Excision of Left Hip Muscle, Open Approach (ICD-10-PCS; 2018-12-24)
PROC: 0KBN0ZZ Excision of Right Hip Muscle, Open Approach (ICD-10-PCS; 2018-12-24)
PROC: 0JB70ZZ Excision of Back Subcutaneous Tissue and Fascia, Open Approach (ICD-10-PCS; 2018-12-24)
PROC: 0KBP0ZZ Excision of Left Hip Muscle, Open Approach (ICD-10-PCS; 2018-12-31)
PROC: 0KBN0ZZ Excision of Right Hip Muscle, Open Approach (ICD-10-PCS; 2018-12-31)
PROC: 0JB70ZZ Excision of Back Subcutaneous Tissue and Fascia, Open Approach (ICD-10-PCS; 2018-12-31)
DX: J96.21 Acute and chronic respiratory failure with hypoxia (principal); L89.324 Pressure ulcer of left buttock, stage 4; L89.314 Pressure ulcer of right buttock, stage 4; L89.154 Pressure ulcer of sacral region, stage 4; G93.41 Metabolic encephalopathy; R53.2 Functional quadriplegia; G93.40 Encephalopathy, unspecified; J44.0 Chronic obstructive pulmonary disease with (acute) lower respiratory infection; N20.2 Calculus of kidney with calculus of ureter; Z99.11 Dependence on respirator [ventilator] status; J98.11 Atelectasis; K04.01 Reversible pulpitis; K92.2 Gastrointestinal hemorrhage, unspecified; N39.0 Urinary tract infection, site not specified; R13.10 Dysphagia, unspecified; D63.8 Anemia in other chronic diseases classified elsewhere; D64.9 Anemia, unspecified; E11.9 Type 2 diabetes mellitus without complications; E78.5 Hyperlipidemia, unspecified; G35 Multiple sclerosis; I10 Essential (primary) hypertension; K21.9 Gastro-esophageal reflux disease without esophagitis; N13.9 Obstructive and reflux uropathy, unspecified; Q54.9 Hypospadias, unspecified; Z74.01 Bed confinement status; Z85.828 Personal history of other malignant neoplasm of skin; Z93.0 Tracheostomy status; Z93.1 Gastrostomy status; Z93.3 Colostomy status; Z93.6 Other artificial openings of urinary tract status; G89.29 Other chronic pain; D50.9 Iron deficiency anemia, unspecified; E87.5 Hyperkalemia; K02.9 Dental caries, unspecified; L60.3 Nail dystrophy; T83.032A Leakage of nephrostomy catheter, initial encounter; Y73.2 Prosthetic and other implants, materials and accessory gastroenterology and urology devices associated with adverse incidents; Z79.899 Other long term (current) drug therapy; Z87.440 Personal history of urinary (tract) infections; B96.20 Unspecified Escherichia coli [E. coli] as the cause of diseases classified elsewhere; Z79.891 Long term (current) use of opiate analgesic
CPT/HCPCS: 31720; 36415; 36600; 71045-TC; 75989; 75989-TC; 80048-TC; 80053-TC; 80202-TC; 81000-TC; 82272-TC; 82306; 82310-TC; 82565-TC; 82803-TC; 82962-TC; 83970; 84520-TC; 85025-TC; 85610-TC; 85730-TC; 86580-TC; 87040-TC; 87070-TC; 87081-TC; 87086-TC; 87186-TC; 94002; 94003-TC; 94640-TC; 94760-TC; 94761-TC; 94762-TC; 94799-TC; 99082-TC; A4216; A4217; A4349; A4623; A6248; A6253; A7526; C1769; G0008; J0692; J0713; J1650; J2185; J2250; J2310; J3010; J3370; J3490; J7030; J7060; L8501; Q2036

== ENCOUNTER 2018-03-23 07:34 | Outpatient (CLI) | payer MEDICARE, MEDICAID ==
[~2018-03-23 07:34] MED LIST changes: -BISA10SU11 RC; +BISA10SU8 RC; +ZINC220T GT; -ZINC220T4 GT
== END 2018-03-23 23:59 | disposition home or self-care (01) ==
LOC: CT 07:34
PROVIDERS: ATTEND Internal Medicine
DX: Z75.3 Unavailability and inaccessibility of health-care facilities (principal)

== ENCOUNTER 2018-06-21 07:30 | Outpatient (CLI) | payer MEDICARE, MEDICAID | END 2018-06-21 23:59 | disposition home or self-care (01) | LOC: RAD 07:30 | PROVIDERS: ATTEND Internal Medicine | DX: Z43.6 Encounter for attention to other artificial openings of urinary tract (principal); N28.1 Cyst of kidney, acquired; K80.20 Calculus of gallbladder without cholecystitis without obstruction; J90 Pleural effusion, not elsewhere classified; I70.0 Atherosclerosis of aorta; K76.89 Other specified diseases of liver; J98.11 Atelectasis; M47.815 Spondylosis without myelopathy or radiculopathy, thoracolumbar region | CPT/HCPCS: 74150-TC ==

== ENCOUNTER 2018-06-26 10:04 | Outpatient (CLI) | payer MEDICARE, MEDICAID ==
[2018-06-26] MEDS ORDERED: IV NS 0.9% 500 ML IV ONE (10:15)
== END 2018-06-26 23:59 | disposition home or self-care (01) ==
LOC: RAD 10:04
PROVIDERS: ATTEND Internal Medicine
DX: N13.30 Unspecified hydronephrosis (principal)
CPT/HCPCS: 50435; 75989 ×2; J7040

== ENCOUNTER 2019-01-19 16:22 | Outpatient (CLI) | payer MEDICARE, MEDICAID ==
[~2019-01-19 16:22] MED LIST changes: +BISA10SU11 RC; -BISA10SU8 RC; -ZINC220T GT; +ZINC220T4 GT
== END 2019-01-19 23:59 | disposition home or self-care (01) ==
LOC: CT 16:22
PROVIDERS: ATTEND Family Medicine
DX: K80.20 Calculus of gallbladder without cholecystitis without obstruction (principal); J98.11 Atelectasis; K76.89 Other specified diseases of liver; N13.30 Unspecified hydronephrosis
CPT/HCPCS: 74150-TC

== ENCOUNTER 2019-06-11 11:01 | Outpatient (CLI) | payer MEDICARE, MEDICAID ==
--- NOTE | 2019-06-10 14:25 | NUR ---
NEPHROSTOMY REPLACEMENT TO BE DONE TOMORROW IN AM PER NURSING MATE FIRST.
[~2019-06-11 11:01] MED LIST changes: +CLOT15CR27 TP; -CLOT15CR63 TP
[2019-06-11] MEDS ORDERED: FENTANYL PF 250MCG/5ML AMPUL IV ONE (11:30)
[2019-06-11] MEDS ORDERED: MIDAZOLAM HCL 5MG/ML VIAL 25 MG/5 ML VIAL IV ONE (11:30)
[2019-06-11] MEDS ORDERED: NALOXONE PREFILLED SYRINGE 2 MG/2 ML SYRINGE IV ONE (11:30)
[2019-06-11] MEDS ORDERED: FLUMAZENIL 0.5 MG VIAL IV PRN (11:30)
[2019-06-11] MEDS ORDERED: IV NS 0.9% 500 ML IV ONE (12:55)
== END 2019-06-11 23:59 ==
LOC: RAD 11:01
PROVIDERS: ATTEND Internal Medicine
DX: N13.30 Unspecified hydronephrosis (principal); N20.0 Calculus of kidney
CPT/HCPCS: 50432; 75989; J2250; J3010; J7040; 31720; J2310; J3490

== ENCOUNTER 2019-08-08 09:46 | Outpatient (CLI) | payer MEDICARE, MEDICAID ==
[2019-08-08] MEDS ORDERED: DIATR MEGLU/DIATRIZOATE SODIUM 120 ML BOTTLE (GASTROGRAPHIN) ONE (19:45)
[2019-08-08] MEDS ORDERED: IOHEXOL-300 100 ML VIAL IV ONE (19:47)
[2019-08-08] MEDS ORDERED: IOHEXOL 50 ML IV ONE (19:49)
== END 2019-08-08 23:59 | disposition other institution (70) ==
LOC: CT 09:46
PROVIDERS: ATTEND Specialist
DX: J90 Pleural effusion, not elsewhere classified (principal); K80.80 Other cholelithiasis without obstruction; I25.10 Atherosclerotic heart disease of native coronary artery without angina pectoris; K76.89 Other specified diseases of liver; R10.9 Unspecified abdominal pain; Z90.89 Acquired absence of other organs
CPT/HCPCS: 74176; Q9967; Q9963

== ENCOUNTER 2019-10-11 08:51 | Outpatient (CLI) | payer MEDICARE, MEDICAID ==
[2019-10-11] MEDS ORDERED: NALOXONE PREFILLED SYRINGE 2 MG/2 ML SYRINGE IV ONE (11:00)
[2019-10-11] MEDS ORDERED: FENTANYL PF 250MCG/5ML AMPUL IV ONE (11:00)
[2019-10-11] MEDS ORDERED: MIDAZOLAM HCL 5MG/ML VIAL 25 MG/5 ML VIAL IV ONE (11:00)
[2019-10-12] MEDS ORDERED: VANCOMYCIN 1 GM VIAL ONE (20:46)
== END 2019-10-11 23:59 | disposition home or self-care (01) ==
LOC: RAD 08:51
PROVIDERS: ATTEND Internal Medicine
DX: N13.30 Unspecified hydronephrosis (principal)
CPT/HCPCS: 50435; 75989; C1769; J2250; J2310; J3010; J3370

== ENCOUNTER → 2019-11-02 | Outpatient (CLI) | payer MEDICARE, MEDICAID ==
[~2019-11-02] MED LIST changes: +CT SWABBABLE VALVE TRANS SET 1 EA INFUS.SET MC ONE; +DIATR MEGLU/DIATRIZOATE SODIUM 30 ML BOTTLE (GASTROGRAPHIN) ONE; +IOHEXOL-300 100 ML VIAL IV ONE; +IV NS 0.9% 250 ML IV ONE
== END | disposition home or self-care (01) ==
LOC: CT 14:04
PROVIDERS: ATTEND Emergency Medicine
DX: K80.20 Calculus of gallbladder without cholecystitis without obstruction (principal); J90 Pleural effusion, not elsewhere classified; J98.11 Atelectasis; K43.9 Ventral hernia without obstruction or gangrene; I25.10 Atherosclerotic heart disease of native coronary artery without angina pectoris; M86.9 Osteomyelitis, unspecified; M85.80 Other specified disorders of bone density and structure, unspecified site
CPT/HCPCS: 74177; J7050; Q9963; Q9967

== ENCOUNTER 2020-01-30 14:29 | Outpatient (CLI) | payer MEDICARE, MEDICAID ==
[~2020-01-30 14:29] MED LIST changes: -CT SWABBABLE VALVE TRANS SET 1 EA INFUS.SET MC ONE; -DIATR MEGLU/DIATRIZOATE SODIUM 30 ML BOTTLE (GASTROGRAPHIN) ONE; -IOHEXOL-300 100 ML VIAL IV ONE; -IV NS 0.9% 250 ML IV ONE
[2020-01-30] MEDS ORDERED: IV NS 0.9% 250 ML IV ONE (16:21)
[2020-01-30] MEDS ORDERED: IOHEXOL-350 100 ML VIAL IV ONE (16:21)
== END 2020-01-30 23:59 | disposition home or self-care (01) ==
LOC: RAD 14:29
PROVIDERS: ATTEND Podiatrist Foot & Ankle Surgery
DX: S81.802A Unspecified open wound, left lower leg, initial encounter (principal); S81.801A Unspecified open wound, right lower leg, initial encounter; J98.11 Atelectasis; J90 Pleural effusion, not elsewhere classified; N26.1 Atrophy of kidney (terminal); M81.0 Age-related osteoporosis without current pathological fracture; L89.899 Pressure ulcer of other site, unspecified stage; X58.XXXA Exposure to other specified factors, initial encounter; Y93.89 Activity, other specified; Y92.89 Other specified places as the place of occurrence of the external cause; Y99.8 Other external cause status
CPT/HCPCS: 75635; J7050; Q9967

== ENCOUNTER 2020-03-30 09:19 | Outpatient (CLI) | payer MEDICARE, MEDICAID ==
[2020-03-30] MEDS ORDERED: BARIUM SULFATE 148 GM SUSP.RECON PO ONE (09:20)
[2020-03-30] MEDS ORDERED: BARIUM SULFATE 240 ML ORAL.SUSP PO ONE (09:20)
[2020-03-30] MEDS ORDERED: IV NS 0.9% 250 ML IV ONE (15:52)
[2020-03-30] MEDS ORDERED: IOHEXOL-300 100 ML VIAL IV ONE (15:52)
[2020-03-30] MEDS ORDERED: CT SWABBABLE VALVE TRANS SET 1 EA INFUS.SET MC ONE (15:52)
== END 2020-03-30 23:59 | disposition home or self-care (01) ==
LOC: RAD 09:19
PROVIDERS: ATTEND Internal Medicine Hematology & Oncology
DX: I25.10 Atherosclerotic heart disease of native coronary artery without angina pectoris (principal); K80.20 Calculus of gallbladder without cholecystitis without obstruction; N28.1 Cyst of kidney, acquired; N20.1 Calculus of ureter; R91.8 Other nonspecific abnormal finding of lung field; J90 Pleural effusion, not elsewhere classified; J98.11 Atelectasis; K76.89 Other specified diseases of liver; N26.1 Atrophy of kidney (terminal); M85.88 Other specified disorders of bone density and structure, other site; M47.819 Spondylosis without myelopathy or radiculopathy, site unspecified; M16.0 Bilateral primary osteoarthritis of hip
CPT/HCPCS: 71250; 74177; J7050; Q9967

== ENCOUNTER 2020-03-31 10:52 | Outpatient (CLI) | payer MEDICARE, MEDICAID | END 2020-03-31 23:59 | disposition home or self-care (01) | LOC: RAD 10:52 | PROVIDERS: ATTEND Internal Medicine | DX: R13.10 Dysphagia, unspecified (principal) | CPT/HCPCS: 74230-TC ==

== ENCOUNTER → 2020-04-06 | Day surgery (SDC) | payer MEDICARE, MEDICAID | END | disposition home or self-care (01) | LOC: DS 09:00 | PROVIDERS: ATTEND Podiatrist Foot & Ankle Surgery | DX: C44.719 Basal cell carcinoma of skin of left lower limb, including hip (principal) | CPT/HCPCS: 88305-TC ==

== ENCOUNTER 2020-05-18 10:18 | Outpatient (CLI) | payer MEDICARE, OTHER ==
[2020-05-18] MEDS ORDERED: NALOXONE PREFILLED SYRINGE 2 MG/2 ML SYRINGE IV ONE (11:00)
[2020-05-18] MEDS ORDERED: FENTANYL PF 250MCG/5ML AMPUL IV ONE (11:00)
[2020-05-18] MEDS ORDERED: MIDAZOLAM HCL 5MG/ML VIAL 25 MG/5 ML VIAL IV ONE (11:00)
== END 2020-05-18 23:59 | disposition home or self-care (01) ==
LOC: RAD 10:18
PROVIDERS: ATTEND Internal Medicine
DX: N13.30 Unspecified hydronephrosis (principal)
CPT/HCPCS: 74150-TC; 75989

== ENCOUNTER 2020-06-02 08:25 | Outpatient (CLI) | payer MEDICARE, OTHER ==
[2020-06-02] MEDS ORDERED: BARIUM SULFATE 148 GM SUSP.RECON PO ONE (10:55)
[2020-06-02] MEDS ORDERED: BARIUM SULFATE 240 ML ORAL.SUSP PO ONE (10:55)
== END 2020-06-02 23:59 | disposition home or self-care (01) ==
LOC: RAD 08:25
PROVIDERS: ATTEND Internal Medicine
DX: R13.10 Dysphagia, unspecified (principal)
CPT/HCPCS: 74230-TC; 92526

== ENCOUNTER 2020-12-03 12:13 | Outpatient (CLI) | payer MEDICARE, OTHER ==
[2020-12-03] MEDS ORDERED: DIATR MEGLU/DIATRIZOATE SODIUM 30 ML BOTTLE (GASTROGRAPHIN) ONE (13:42)
[2020-12-03] MEDS ORDERED: CT SWABBABLE VALVE TRANS SET 1 EA INFUS.SET MC ONE (16:02)
[2020-12-03] MEDS ORDERED: IV NS 0.9% 250 ML IV ONE (16:02)
[2020-12-03] MEDS ORDERED: IOHEXOL-300 100 ML VIAL IV ONE (16:02)
== END 2020-12-03 23:59 | disposition home or self-care (01) ==
LOC: CT 12:13
PROVIDERS: ATTEND Internal Medicine
DX: K80.20 Calculus of gallbladder without cholecystitis without obstruction (principal); I25.10 Atherosclerotic heart disease of native coronary artery without angina pectoris; N13.2 Hydronephrosis with renal and ureteral calculous obstruction; N28.1 Cyst of kidney, acquired; J90 Pleural effusion, not elsewhere classified; K76.89 Other specified diseases of liver; M85.88 Other specified disorders of bone density and structure, other site; K31.89 Other diseases of stomach and duodenum
CPT/HCPCS: 74177; J7050; Q9963; Q9967

== ENCOUNTER 2021-01-12 08:48 | Outpatient (CLI) | payer MEDICARE, OTHER ==
[2021-01-12] MEDS ORDERED: FENTANYL PF 250MCG/5ML AMPUL IV ONE (09:30)
[2021-01-12] MEDS ORDERED: NALOXONE PREFILLED SYRINGE 2 MG/2 ML SYRINGE IV ONE (09:30)
[2021-01-12] MEDS ORDERED: MIDAZOLAM HCL 5MG/ML VIAL 25 MG/5 ML VIAL IV ONE (09:30)
== END 2021-01-12 23:59 | disposition home or self-care (01) ==
LOC: CT 08:48
PROVIDERS: ATTEND Internal Medicine
DX: N13.30 Unspecified hydronephrosis (principal)
CPT/HCPCS: 50435; 75989; J2250; J2310; J3010

== ENCOUNTER 2021-09-01 09:54 | Outpatient (CLI) | payer MEDICARE, OTHER ==
[2021-09-01] MEDS ORDERED: FLUMAZENIL 0.5 MG VIAL IV PRN (14:30)
[2021-09-01] MEDS ORDERED: NALOXONE PREFILLED SYRINGE 2 MG/2 ML SYRINGE IV PRN (14:30)
[2021-09-01] MEDS ORDERED: MIDAZOLAM HCL 2 MG/2ML VIAL IV PRN (14:30)
[2021-09-01] MEDS ORDERED: FENTANYL PF 250MCG/5ML AMPUL IV PRN (14:30)
== END 2021-09-01 23:59 | disposition home or self-care (01) ==
LOC: RAD 09:54
PROVIDERS: ATTEND Internal Medicine
DX: Z46.6 Encounter for fitting and adjustment of urinary device (principal); N13.30 Unspecified hydronephrosis

== ENCOUNTER 2021-12-30 11:17 | Outpatient (CLI) | payer MEDICARE, OTHER ==
[2021-12-30] MEDS ORDERED: IOHEXOL 240MG/ML 50 ML IV ONE ×2 (14:02→14:40)
== END 2021-12-30 23:59 | disposition home or self-care (01) ==
LOC: RAD 11:17
PROVIDERS: ATTEND Internal Medicine
DX: N13.30 Unspecified hydronephrosis (principal)
CPT/HCPCS: 50435; Q9966 ×2; 50432

== ENCOUNTER 2022-02-20 | Inpatient (IN) | payer MEDICARE, MEDICAID ==
[~2022-02-20] VITALS: Ht 167.6 cm; Wt 73.0 kg
[2022-02-22] MEDS ORDERED: ALBUTEROL HALF STRENGTH 1.25 MG/3 ML VIAL.NEB IH PRN (06:51)
[2022-02-22] MEDS ORDERED: MAGNESIUM HYDROXIDE 30 ML UDC GT PRN (06:51)
[2022-02-22] MEDS ORDERED: HYDROCODONE/APAP 10/325MG TABLET GT PRN (06:51)
[2022-02-22] MEDS ORDERED: IPRATROPIUM NEB FS 0.5 MG/2.5 ML AMPUL.NEB IH PRN (06:51)
[2022-02-22] MEDS ORDERED: METHOCARBAMOL (750MG) 750 MG TABLET GT PRN (06:51)
[2022-02-22] MEDS ORDERED: TUBERCULIN,PURIF.PROT.DERIV. 5 TU/0.1 ML VIAL ID SCH (06:51)
[2022-02-22] MEDS ORDERED: HYDROCODONE/APAP 5/325MG TABLET GT PRN (06:51)
[2022-02-22] MEDS ORDERED: ONDANSETRON 4 MG TAB.RAPDIS GT PRN (06:51)
[2022-02-22] MEDS ORDERED: SILVER NITRATE APPLICATOR 1 EA BOX TP SCH (06:51)
[2022-02-22] MEDS ORDERED: ACETAMINOPHEN 650 MG/20 ML UDC- SA PATIENTS-FEVER ONLY GT PRN (06:51)
[2022-02-22] MEDS ORDERED: MAG HYDROX/AL HYDROX/SIMETH 30 ML UDC GT PRN (06:51)
[2022-02-22] MEDS: IPRATROPIUM NEB FS 0.5 MG/2.5 ML AMPUL.NEB NEB SCH ×3 (07:35→18:31)
[2022-02-22] MEDS: ALBUTEROL FS 2.5 MG/0.5 ML VIAL.NEB NEB SCH ×3 (07:35→18:31)
[2022-02-22] MEDS: HYDROGEN PEROXIDE 480 ML BOTTLE TP SCH ×2 (09:00→19:33)
[2022-02-22] MEDS: ACIDOPHILUS/BULGARICUS 1 EACH TAB.CHEW GT SCH ×3 (09:46→16:50)
[2022-02-22] MEDS: GABAPENTIN 250 MG/5 ML GT SCH ×3 (09:46→16:50)
[2022-02-22] MEDS: SUCRALFATE 1 G TABLET GT SCH ×2 (09:46→21:06)
[2022-02-22] MEDS: BACLOFEN (10 MG) 10 MG TABLET GT SCH ×4 (09:46→21:06)
[2022-02-22] MEDS: FERROUS SULFATE UDC 300 MG/5 ML UDC GT SCH (09:46)
[2022-02-22] MEDS: DAKINS QUARTER STRENGTH (0.125%) 480 ML BOTTLE TOP SCH ×6 (09:47→21:07)
[2022-02-22] MEDS: FAMOTIDINE (20 MG) 20 MG TABLET GT SCH ×2 (09:47→21:06)
[2022-02-22] MEDS: CALCIUM CARBONATE 500 MG TAB.CHEW GT SCH ×3 (09:47→16:50)
[2022-02-22] MEDS: PROSTAT (PYXIS) 30 ML UDC GT SCH ×4 (09:47→21:06)
[2022-02-22] MEDS: POLYETHYLENE GLYCOL 3350 17 GM POWD.PACK PO SCH (09:47)
[2022-02-22] MEDS: MULTIVIT W/MINERALS 1 TAB TABLET GT SCH (09:47)
[2022-02-22] MEDS: ASCORBIC ACID 500 MG TABLET GT SCH ×2 (09:47→16:50)
[2022-02-22] MEDS: METHADONE HCL 10 MG TABLET GT SCH ×2 (09:47→21:06)
[2022-02-22] MEDS: VITAMINS A AND D 56.7 GM TUBE TP SCH ×10 (09:48→21:07)
[2022-02-22] MEDS: JEVITY 1.2 CAL 1,000 ML BOTTLE GT PRN (19:28)
[2022-02-22 20:00] VITALS: BP 125/71
[2022-02-22] MEDS: ZINC SULFATE 220 MG CAPSULE GT SCH (21:06)
[2022-02-22] MEDS: ATORVASTATIN 10 MG TABLET GT SCH (21:07)
[2022-02-22] MEDS: ENOXAPARIN SODIUM 40 MG/0.4 ML DISP.SYRIN SQ SCH (21:08)
[2022-02-23] MEDS: ALBUTEROL FS 2.5 MG/0.5 ML VIAL.NEB NEB SCH ×4 (00:52→19:42)
[2022-02-23] MEDS: IPRATROPIUM NEB FS 0.5 MG/2.5 ML AMPUL.NEB NEB SCH ×4 (00:52→19:42)
[2022-02-23 08:06] VITALS: BP 117/66
[2022-02-23] MEDS: DAKINS QUARTER STRENGTH (0.125%) 480 ML BOTTLE TOP SCH ×6 (09:00→21:33)
[2022-02-23] MEDS: PROSTAT (PYXIS) 30 ML UDC GT SCH ×4 (09:27→21:33)
[2022-02-23] MEDS: ACIDOPHILUS/BULGARICUS 1 EACH TAB.CHEW GT SCH ×3 (09:27→17:28)
[2022-02-23] MEDS: METHADONE HCL 10 MG TABLET GT SCH ×2 (09:27→21:33)
[2022-02-23] MEDS: FERROUS SULFATE UDC 300 MG/5 ML UDC GT SCH (09:27)
[2022-02-23] MEDS: FAMOTIDINE (20 MG) 20 MG TABLET GT SCH ×2 (09:27→21:33)
[2022-02-23] MEDS: SUCRALFATE 1 G TABLET GT SCH ×2 (09:27→21:32)
[2022-02-23] MEDS: CALCIUM CARBONATE 500 MG TAB.CHEW GT SCH ×3 (09:27→17:28)
[2022-02-23] MEDS: BACLOFEN (10 MG) 10 MG TABLET GT SCH ×4 (09:27→21:32)
[2022-02-23] MEDS: MULTIVIT W/MINERALS 1 TAB TABLET GT SCH (09:27)
[2022-02-23] MEDS: GABAPENTIN 250 MG/5 ML GT SCH ×3 (09:27→17:28)
[2022-02-23] MEDS: ASCORBIC ACID 500 MG TABLET GT SCH ×2 (09:28→17:28)
[2022-02-23] MEDS: POLYETHYLENE GLYCOL 3350 17 GM POWD.PACK PO SCH (09:28)
[2022-02-23] MEDS: HYDROGEN PEROXIDE 480 ML BOTTLE TP SCH ×2 (09:35→19:42)
[2022-02-23] MEDS: VITAMINS A AND D 56.7 GM TUBE TP SCH ×10 (10:00→21:33)
[2022-02-23 20:00] VITALS: BP 99/60
[2022-02-23] MEDS: JEVITY 1.2 CAL 1,000 ML BOTTLE GT PRN (20:27)
[2022-02-23] MEDS: ZINC SULFATE 220 MG CAPSULE GT SCH (21:33)
[2022-02-23] MEDS: ATORVASTATIN 10 MG TABLET GT SCH (21:33)
[2022-02-23] MEDS: ENOXAPARIN SODIUM 40 MG/0.4 ML DISP.SYRIN SQ SCH (21:34)
[2022-02-24] MEDS: ALBUTEROL FS 2.5 MG/0.5 ML VIAL.NEB NEB SCH ×4 (01:28→19:45)
[2022-02-24] MEDS: IPRATROPIUM NEB FS 0.5 MG/2.5 ML AMPUL.NEB NEB SCH ×4 (01:28→19:45)
[2022-02-24 07:24] VITALS: BP 113/71
[2022-02-24] MEDS: HYDROGEN PEROXIDE 480 ML BOTTLE TP PRN ×2 (07:55→10:42)
[2022-02-24] MEDS: HYDROGEN PEROXIDE 480 ML BOTTLE TP SCH ×2 (09:00→19:45)
[2022-02-24] MEDS: ASCORBIC ACID 500 MG TABLET GT SCH ×2 (09:55→16:48)
[2022-02-24] MEDS: GABAPENTIN 250 MG/5 ML GT SCH ×3 (09:55→16:48)
[2022-02-24] MEDS: FERROUS SULFATE UDC 300 MG/5 ML UDC GT SCH (09:55)
[2022-02-24] MEDS: SUCRALFATE 1 G TABLET GT SCH ×2 (09:55→20:23)
[2022-02-24] MEDS: POLYETHYLENE GLYCOL 3350 17 GM POWD.PACK PO SCH (09:55)
[2022-02-24] MEDS: BACLOFEN (10 MG) 10 MG TABLET GT SCH ×4 (09:55→20:23)
[2022-02-24] MEDS: PROSTAT (PYXIS) 30 ML UDC GT SCH ×4 (09:55→20:23)
[2022-02-24] MEDS: ACIDOPHILUS/BULGARICUS 1 EACH TAB.CHEW GT SCH ×3 (09:55→16:48)
[2022-02-24] MEDS: CALCIUM CARBONATE 500 MG TAB.CHEW GT SCH ×3 (09:55→16:48)
[2022-02-24] MEDS: FAMOTIDINE (20 MG) 20 MG TABLET GT SCH ×2 (09:55→20:23)
[2022-02-24] MEDS: MULTIVIT W/MINERALS 1 TAB TABLET GT SCH (09:55)
[2022-02-24] MEDS: METHADONE HCL 10 MG TABLET GT SCH ×2 (09:55→21:05)
[2022-02-24] MEDS: VITAMINS A AND D 56.7 GM TUBE TP SCH ×10 (10:00→21:06)
[2022-02-24] MEDS: DAKINS QUARTER STRENGTH (0.125%) 480 ML BOTTLE TOP SCH ×6 (10:00→21:06)
[2022-02-24 11:46] VITALS: BP 136/75
[2022-02-24] MEDS: JEVITY 1.2 CAL 1,000 ML BOTTLE GT PRN (17:43)
[2022-02-24 19:24] VITALS: BP 129/68
[2022-02-24] MEDS: ZINC SULFATE 220 MG CAPSULE GT SCH (20:23)
[2022-02-24] MEDS: ENOXAPARIN SODIUM 40 MG/0.4 ML DISP.SYRIN SQ SCH (21:06)
[2022-02-24] MEDS: ATORVASTATIN 10 MG TABLET GT SCH (21:06)
[2022-02-25 00:39] VITALS: BP 126/69
[2022-02-25] MEDS: ALBUTEROL FS 2.5 MG/0.5 ML VIAL.NEB NEB SCH ×4 (01:35→19:03)
[2022-02-25] MEDS: IPRATROPIUM NEB FS 0.5 MG/2.5 ML AMPUL.NEB NEB SCH ×4 (01:35→19:03)
[2022-02-25 07:15] VITALS: BP 102/77
[2022-02-25] MEDS: HYDROGEN PEROXIDE 480 ML BOTTLE TP SCH ×2 (09:06→21:03)
[2022-02-25] MEDS: SUCRALFATE 1 G TABLET GT SCH ×2 (09:19→20:24)
[2022-02-25] MEDS: ACIDOPHILUS/BULGARICUS 1 EACH TAB.CHEW GT SCH ×3 (09:19→17:08)
[2022-02-25] MEDS: GABAPENTIN 250 MG/5 ML GT SCH ×3 (09:19→17:08)
[2022-02-25] MEDS: BACLOFEN (10 MG) 10 MG TABLET GT SCH ×4 (09:19→20:24)
[2022-02-25] MEDS: FERROUS SULFATE UDC 300 MG/5 ML UDC GT SCH (09:19)
[2022-02-25] MEDS: METHADONE HCL 10 MG TABLET GT SCH ×2 (09:20→20:26)
[2022-02-25] MEDS: MULTIVIT W/MINERALS 1 TAB TABLET GT SCH (09:20)
[2022-02-25] MEDS: ASCORBIC ACID 500 MG TABLET GT SCH ×2 (09:20→17:08)
[2022-02-25] MEDS: PROSTAT (PYXIS) 30 ML UDC GT SCH ×4 (09:20→20:24)
[2022-02-25] MEDS: FAMOTIDINE (20 MG) 20 MG TABLET GT SCH ×2 (09:20→20:24)
[2022-02-25] MEDS: POLYETHYLENE GLYCOL 3350 17 GM POWD.PACK PO SCH (09:20)
[2022-02-25] MEDS: VITAMINS A AND D 56.7 GM TUBE TP SCH ×10 (09:20→20:44)
[2022-02-25] MEDS: CALCIUM CARBONATE 500 MG TAB.CHEW GT SCH ×3 (09:20→17:08)
[2022-02-25] MEDS: DAKINS QUARTER STRENGTH (0.125%) 480 ML BOTTLE TOP SCH ×6 (09:20→20:43)
[2022-02-25 11:23] VITALS: BP 126/72
[2022-02-25] MEDS: JEVITY 1.2 CAL 1,000 ML BOTTLE GT PRN (17:54)
[2022-02-25 19:00] VITALS: BP 107/68
[2022-02-25] MEDS: ZINC SULFATE 220 MG CAPSULE GT SCH (20:24)
[2022-02-25] MEDS: ATORVASTATIN 10 MG TABLET GT SCH (21:06)
[2022-02-25] MEDS: ENOXAPARIN SODIUM 40 MG/0.4 ML DISP.SYRIN SQ SCH (21:06)
[2022-02-25 23:20] VITALS: BP 113/71
[2022-02-26] MEDS: IPRATROPIUM NEB FS 0.5 MG/2.5 ML AMPUL.NEB NEB SCH ×4 (00:37→19:16)
[2022-02-26] MEDS: ALBUTEROL FS 2.5 MG/0.5 ML VIAL.NEB NEB SCH ×4 (00:37→19:16)
[2022-02-26 07:21] VITALS: BP 114/70
[2022-02-26] MEDS: HYDROGEN PEROXIDE 480 ML BOTTLE TP SCH ×2 (09:07→20:39)
[2022-02-26] MEDS: SUCRALFATE 1 G TABLET GT SCH ×2 (09:12→21:36)
[2022-02-26] MEDS: FERROUS SULFATE UDC 300 MG/5 ML UDC GT SCH (09:12)
[2022-02-26] MEDS: GABAPENTIN 250 MG/5 ML GT SCH ×3 (09:12→17:33)
[2022-02-26] MEDS: MULTIVIT W/MINERALS 1 TAB TABLET GT SCH (09:13)
[2022-02-26] MEDS: PROSTAT (PYXIS) 30 ML UDC GT SCH ×4 (09:13→21:36)
[2022-02-26] MEDS: METHADONE HCL 10 MG TABLET GT SCH ×2 (09:13→21:36)
[2022-02-26] MEDS: POLYETHYLENE GLYCOL 3350 17 GM POWD.PACK PO SCH (09:13)
[2022-02-26] MEDS: BACLOFEN (10 MG) 10 MG TABLET GT SCH ×4 (09:13→21:36)
[2022-02-26] MEDS: ASCORBIC ACID 500 MG TABLET GT SCH ×2 (09:13→17:33)
[2022-02-26] MEDS: THERAHONEY GEL 1.5 OZ TUBE TP SCH ×6 (09:13→21:37)
[2022-02-26] MEDS: ACIDOPHILUS/BULGARICUS 1 EACH TAB.CHEW GT SCH ×3 (09:13→17:33)
[2022-02-26] MEDS: CALCIUM CARBONATE 500 MG TAB.CHEW GT SCH ×3 (09:13→17:33)
[2022-02-26] MEDS: FAMOTIDINE (20 MG) 20 MG TABLET GT SCH ×2 (09:13→21:36)
[2022-02-26] MEDS: VITAMINS A AND D 56.7 GM TUBE TP SCH ×16 (09:14→21:38)
[2022-02-26 11:32] VITALS: BP 126/69
[2022-02-26 19:54] VITALS: BP 113/72
[2022-02-26] MEDS: JEVITY 1.2 CAL 1,000 ML BOTTLE GT PRN (20:05)
[2022-02-26] MEDS: ZINC SULFATE 220 MG CAPSULE GT SCH (21:36)
[2022-02-26] MEDS: ENOXAPARIN SODIUM 40 MG/0.4 ML DISP.SYRIN SQ SCH (21:38)
[2022-02-26] MEDS: ATORVASTATIN 10 MG TABLET GT SCH (21:38)
[2022-02-27] MEDS: IPRATROPIUM NEB FS 0.5 MG/2.5 ML AMPUL.NEB NEB SCH ×4 (01:30→18:47)
[2022-02-27] MEDS: ALBUTEROL FS 2.5 MG/0.5 ML VIAL.NEB NEB SCH ×4 (01:30→18:47)
[2022-02-27 07:37] VITALS: BP 116/62
[2022-02-27] MEDS: VITAMINS A AND D 56.7 GM TUBE TP SCH ×16 (09:00→21:00)
[2022-02-27] MEDS: THERAHONEY GEL 1.5 OZ TUBE TP SCH ×6 (09:00→21:00)
[2022-02-27] MEDS: GABAPENTIN 250 MG/5 ML GT SCH ×3 (09:31→16:14)
[2022-02-27] MEDS: METHADONE HCL 10 MG TABLET GT SCH ×2 (09:31→21:00)
[2022-02-27] MEDS: ACIDOPHILUS/BULGARICUS 1 EACH TAB.CHEW GT SCH ×3 (09:31→16:14)
[2022-02-27] MEDS: FAMOTIDINE (20 MG) 20 MG TABLET GT SCH ×2 (09:31→21:00)
[2022-02-27] MEDS: SUCRALFATE 1 G TABLET GT SCH ×2 (09:31→21:00)
[2022-02-27] MEDS: BACLOFEN (10 MG) 10 MG TABLET GT SCH ×4 (09:31→21:00)
[2022-02-27] MEDS: PROSTAT (PYXIS) 30 ML UDC GT SCH ×4 (09:31→21:00)
[2022-02-27] MEDS: FERROUS SULFATE UDC 300 MG/5 ML UDC GT SCH (09:31)
[2022-02-27] MEDS: POLYETHYLENE GLYCOL 3350 17 GM POWD.PACK PO SCH (09:32)
[2022-02-27] MEDS: MULTIVIT W/MINERALS 1 TAB TABLET GT SCH (09:32)
[2022-02-27] MEDS: ASCORBIC ACID 500 MG TABLET GT SCH ×2 (09:32→16:14)
[2022-02-27] MEDS: CALCIUM CARBONATE 500 MG TAB.CHEW GT SCH ×3 (09:32→16:14)
[2022-02-27] MEDS: HYDROGEN PEROXIDE 480 ML BOTTLE TP SCH ×2 (09:51→20:35)
[2022-02-27 19:52] VITALS: BP 95/65
[2022-02-27] MEDS: ZINC SULFATE 220 MG CAPSULE GT SCH (21:00)
[2022-02-27] MEDS: ENOXAPARIN SODIUM 40 MG/0.4 ML DISP.SYRIN SQ SCH (22:00)
[2022-02-27] MEDS: ATORVASTATIN 10 MG TABLET GT SCH (22:00)
[2022-02-28] MEDS: IPRATROPIUM NEB FS 0.5 MG/2.5 ML AMPUL.NEB NEB SCH ×4 (00:32→18:43)
[2022-02-28] MEDS: ALBUTEROL FS 2.5 MG/0.5 ML VIAL.NEB NEB SCH ×4 (00:32→18:43)
[2022-02-28 01:31] VITALS: BP 100/71
[2022-02-28] MEDS: JEVITY 1.2 CAL 1,000 ML BOTTLE GT PRN (05:42)
[2022-02-28 07:08] VITALS: BP 111/71
[2022-02-28] MEDS: HYDROGEN PEROXIDE 480 ML BOTTLE TP SCH ×2 (09:08→20:17)
[2022-02-28] MEDS: GABAPENTIN 250 MG/5 ML GT SCH ×3 (09:30→17:31)
[2022-02-28] MEDS: SUCRALFATE 1 G TABLET GT SCH ×2 (09:30→21:55)
[2022-02-28] MEDS: ACIDOPHILUS/BULGARICUS 1 EACH TAB.CHEW GT SCH ×3 (09:30→17:31)
[2022-02-28] MEDS: FERROUS SULFATE UDC 300 MG/5 ML UDC GT SCH (09:30)
[2022-02-28] MEDS: BACLOFEN (10 MG) 10 MG TABLET GT SCH ×4 (09:30→21:55)
[2022-02-28] MEDS: METHADONE HCL 10 MG TABLET GT SCH ×2 (09:30→21:58)
[2022-02-28] MEDS: MULTIVIT W/MINERALS 1 TAB TABLET GT SCH (09:31)
[2022-02-28] MEDS: POLYETHYLENE GLYCOL 3350 17 GM POWD.PACK PO SCH (09:31)
[2022-02-28] MEDS: PROSTAT (PYXIS) 30 ML UDC GT SCH ×4 (09:31→21:55)
[2022-02-28] MEDS: ASCORBIC ACID 500 MG TABLET GT SCH ×2 (09:31→17:31)
[2022-02-28] MEDS: FAMOTIDINE (20 MG) 20 MG TABLET GT SCH ×2 (09:31→21:55)
[2022-02-28] MEDS: CALCIUM CARBONATE 500 MG TAB.CHEW GT SCH ×3 (09:31→17:31)
[2022-02-28] MEDS: THERAHONEY GEL 1.5 OZ TUBE TP SCH ×6 (10:00→21:56)
[2022-02-28] MEDS: VITAMINS A AND D 56.7 GM TUBE TP SCH ×16 (10:00→21:56)
[2022-02-28 11:56] VITALS: BP 113/76
[2022-02-28 20:00] VITALS: BP 98/63
[2022-02-28] MEDS: ZINC SULFATE 220 MG CAPSULE GT SCH (21:55)
[2022-02-28] MEDS: ATORVASTATIN 10 MG TABLET GT SCH (21:56)
[2022-02-28] MEDS: ENOXAPARIN SODIUM 40 MG/0.4 ML DISP.SYRIN SQ SCH (21:57)
[2022-03-01] MEDS: ALBUTEROL FS 2.5 MG/0.5 ML VIAL.NEB NEB SCH ×4 (00:35→20:18)
[2022-03-01] MEDS: IPRATROPIUM NEB FS 0.5 MG/2.5 ML AMPUL.NEB NEB SCH ×4 (00:35→20:18)
[2022-03-01 07:12] VITALS: BP 101/62
[2022-03-01] MEDS: METHADONE HCL 10 MG TABLET GT SCH ×2 (08:12→21:54)
[2022-03-01] MEDS: ACIDOPHILUS/BULGARICUS 1 EACH TAB.CHEW GT SCH ×3 (08:13→16:38)
[2022-03-01] MEDS: BACLOFEN (10 MG) 10 MG TABLET GT SCH ×4 (08:13→21:49)
[2022-03-01] MEDS: GABAPENTIN 250 MG/5 ML GT SCH ×3 (08:13→16:38)
[2022-03-01] MEDS: SUCRALFATE 1 G TABLET GT SCH ×2 (08:13→21:49)
[2022-03-01] MEDS: FERROUS SULFATE UDC 300 MG/5 ML UDC GT SCH (08:13)
[2022-03-01] MEDS: CALCIUM CARBONATE 500 MG TAB.CHEW GT SCH ×3 (08:14→16:38)
[2022-03-01] MEDS: FAMOTIDINE (20 MG) 20 MG TABLET GT SCH ×2 (08:14→21:49)
[2022-03-01] MEDS: PROSTAT (PYXIS) 30 ML UDC GT SCH ×4 (08:14→21:49)
[2022-03-01] MEDS: ASCORBIC ACID 500 MG TABLET GT SCH ×2 (08:14→16:38)
[2022-03-01] MEDS: MULTIVIT W/MINERALS 1 TAB TABLET GT SCH (08:14)
[2022-03-01] MEDS: POLYETHYLENE GLYCOL 3350 17 GM POWD.PACK PO SCH (08:14)
[2022-03-01] MEDS: VITAMINS A AND D 56.7 GM TUBE TP SCH ×13 (08:15→21:50)
[2022-03-01] MEDS: THERAHONEY GEL 1.5 OZ TUBE TP SCH ×6 (08:15→21:49)
[2022-03-01] MEDS: HYDROGEN PEROXIDE 480 ML BOTTLE TP SCH ×2 (11:12→21:01)
[2022-03-01 11:31] VITALS: BP 121/65
[2022-03-01] MEDS: JEVITY 1.2 CAL 1,000 ML BOTTLE GT PRN (16:58)
[2022-03-01 20:00] VITALS: BP 113/64
[2022-03-01] MEDS: ZINC SULFATE 220 MG CAPSULE GT SCH (21:49)
[2022-03-01] MEDS: ATORVASTATIN 10 MG TABLET GT SCH (21:50)
[2022-03-01] MEDS: ENOXAPARIN SODIUM 40 MG/0.4 ML DISP.SYRIN SQ SCH (21:50)
[2022-03-02] MEDS: IPRATROPIUM NEB FS 0.5 MG/2.5 ML AMPUL.NEB NEB SCH ×4 (01:14→19:36)
[2022-03-02] MEDS: ALBUTEROL FS 2.5 MG/0.5 ML VIAL.NEB NEB SCH ×4 (01:14→19:36)
[2022-03-02 07:22] VITALS: BP 113/73
[2022-03-02] MEDS: HYDROGEN PEROXIDE 480 ML BOTTLE TP SCH ×2 (08:03→19:36)
[2022-03-02] MEDS: METHADONE HCL 10 MG TABLET GT SCH ×2 (09:00→21:26)
[2022-03-02] MEDS: POLYETHYLENE GLYCOL 3350 17 GM POWD.PACK PO SCH (09:00)
[2022-03-02] MEDS: PROSTAT (PYXIS) 30 ML UDC GT SCH ×4 (09:00→21:26)
[2022-03-02] MEDS: BACLOFEN (10 MG) 10 MG TABLET GT SCH ×4 (09:00→21:26)
[2022-03-02] MEDS: FAMOTIDINE (20 MG) 20 MG TABLET GT SCH ×2 (09:00→21:26)
[2022-03-02] MEDS: MULTIVIT W/MINERALS 1 TAB TABLET GT SCH (09:00)
[2022-03-02] MEDS: ASCORBIC ACID 500 MG TABLET GT SCH ×2 (09:00→17:00)
[2022-03-02] MEDS: CALCIUM CARBONATE 500 MG TAB.CHEW GT SCH ×3 (09:00→17:00)
[2022-03-02] MEDS: SUCRALFATE 1 G TABLET GT SCH ×2 (09:00→21:26)
[2022-03-02] MEDS: VITAMINS A AND D 56.7 GM TUBE TP SCH ×10 (09:00→21:27)
[2022-03-02] MEDS: GABAPENTIN 250 MG/5 ML GT SCH ×3 (09:00→17:00)
[2022-03-02] MEDS: THERAHONEY GEL 1.5 OZ TUBE TP SCH ×6 (09:00→21:27)
[2022-03-02] MEDS: ACIDOPHILUS/BULGARICUS 1 EACH TAB.CHEW GT SCH ×3 (09:00→17:00)
[2022-03-02] MEDS: FERROUS SULFATE UDC 300 MG/5 ML UDC GT SCH (09:00)
[2022-03-02 11:53] VITALS: BP 116/74
[2022-03-02] MEDS: JEVITY 1.2 CAL 1,000 ML BOTTLE GT PRN (18:03)
[2022-03-02 20:00] VITALS: BP 99/65
[2022-03-02] MEDS: ZINC SULFATE 220 MG CAPSULE GT SCH (21:26)
[2022-03-02] MEDS: ATORVASTATIN 10 MG TABLET GT SCH (21:27)
[2022-03-02] MEDS: ENOXAPARIN SODIUM 40 MG/0.4 ML DISP.SYRIN SQ SCH (21:28)
[2022-03-03] MEDS: ALBUTEROL FS 2.5 MG/0.5 ML VIAL.NEB NEB SCH ×4 (01:23→19:33)
[2022-03-03] MEDS: IPRATROPIUM NEB FS 0.5 MG/2.5 ML AMPUL.NEB NEB SCH ×4 (01:23→19:33)
[2022-03-03 07:20] VITALS: BP 106/68
[2022-03-03] MEDS: HYDROGEN PEROXIDE 480 ML BOTTLE TP PRN (08:07)
[2022-03-03] MEDS: HYDROGEN PEROXIDE 480 ML BOTTLE TP SCH ×2 (09:00→19:33)
[2022-03-03] MEDS: GABAPENTIN 250 MG/5 ML GT SCH ×3 (09:01→16:30)
[2022-03-03] MEDS: PROSTAT (PYXIS) 30 ML UDC GT SCH ×4 (09:01→21:54)
[2022-03-03] MEDS: FAMOTIDINE (20 MG) 20 MG TABLET GT SCH ×2 (09:01→21:53)
[2022-03-03] MEDS: BACLOFEN (10 MG) 10 MG TABLET GT SCH ×4 (09:01→21:53)
[2022-03-03] MEDS: CALCIUM CARBONATE 500 MG TAB.CHEW GT SCH ×3 (09:01→16:30)
[2022-03-03] MEDS: POLYETHYLENE GLYCOL 3350 17 GM POWD.PACK PO SCH (09:01)
[2022-03-03] MEDS: THERAHONEY GEL 1.5 OZ TUBE TP SCH ×6 (09:01→21:54)
[2022-03-03] MEDS: FERROUS SULFATE UDC 300 MG/5 ML UDC GT SCH (09:01)
[2022-03-03] MEDS: VITAMINS A AND D 56.7 GM TUBE TP SCH ×10 (09:01→21:54)
[2022-03-03] MEDS: SUCRALFATE 1 G TABLET GT SCH ×2 (09:01→21:53)
[2022-03-03] MEDS: ASCORBIC ACID 500 MG TABLET GT SCH ×2 (09:01→16:30)
[2022-03-03] MEDS: MULTIVIT W/MINERALS 1 TAB TABLET GT SCH (09:01)
[2022-03-03] MEDS: ACIDOPHILUS/BULGARICUS 1 EACH TAB.CHEW GT SCH ×3 (09:01→16:30)
[2022-03-03] MEDS: METHADONE HCL 10 MG TABLET GT SCH ×2 (09:01→21:53)
[2022-03-03 12:04] VITALS: BP 99/70
[2022-03-03 18:55] VITALS: BP 115/72
[2022-03-03] MEDS: ENOXAPARIN SODIUM 40 MG/0.4 ML DISP.SYRIN SQ SCH (21:54)
[2022-03-03] MEDS: ZINC SULFATE 220 MG CAPSULE GT SCH (21:54)
[2022-03-03] MEDS: ATORVASTATIN 10 MG TABLET GT SCH (21:54)
[2022-03-04 00:14] VITALS: BP 124/76
[2022-03-04] MEDS: IPRATROPIUM NEB FS 0.5 MG/2.5 ML AMPUL.NEB NEB SCH ×4 (01:30→18:50)
[2022-03-04] MEDS: ALBUTEROL FS 2.5 MG/0.5 ML VIAL.NEB NEB SCH ×4 (01:30→18:50)
[2022-03-04] MEDS: HYDROGEN PEROXIDE 480 ML BOTTLE TP SCH ×2 (09:20→20:25)
[2022-03-04] MEDS: FERROUS SULFATE UDC 300 MG/5 ML UDC GT SCH (09:46)
[2022-03-04] MEDS: METHADONE HCL 10 MG TABLET GT SCH ×2 (09:46→21:46)
[2022-03-04] MEDS: PROSTAT (PYXIS) 30 ML UDC GT SCH ×4 (09:46→21:45)
[2022-03-04] MEDS: GABAPENTIN 250 MG/5 ML GT SCH ×3 (09:46→16:20)
[2022-03-04] MEDS: FAMOTIDINE (20 MG) 20 MG TABLET GT SCH ×2 (09:46→21:45)
[2022-03-04] MEDS: ASCORBIC ACID 500 MG TABLET GT SCH ×2 (09:46→16:20)
[2022-03-04] MEDS: POLYETHYLENE GLYCOL 3350 17 GM POWD.PACK PO SCH (09:46)
[2022-03-04] MEDS: CALCIUM CARBONATE 500 MG TAB.CHEW GT SCH ×3 (09:46→16:20)
[2022-03-04] MEDS: SUCRALFATE 1 G TABLET GT SCH ×2 (09:46→21:45)
[2022-03-04] MEDS: BACLOFEN (10 MG) 10 MG TABLET GT SCH ×4 (09:46→21:45)
[2022-03-04] MEDS: MULTIVIT W/MINERALS 1 TAB TABLET GT SCH (09:46)
[2022-03-04] MEDS: ACIDOPHILUS/BULGARICUS 1 EACH TAB.CHEW GT SCH ×3 (09:46→16:20)
[2022-03-04 11:31] VITALS: BP 119/64
[2022-03-04 11:32] VITALS: BP 106/64
[2022-03-04] MEDS: JEVITY 1.2 CAL 1,000 ML BOTTLE GT PRN (16:21)
[2022-03-04 18:59] VITALS: BP 134/75
[2022-03-04] MEDS: ZINC SULFATE 220 MG CAPSULE GT SCH (21:45)
[2022-03-04] MEDS: DAKINS QUARTER STRENGTH (0.125%) 480 ML BOTTLE TOP SCH ×3 (21:46)
[2022-03-04] MEDS: THERAHONEY GEL 1.5 OZ TUBE TP SCH ×3 (21:46→21:47)
[2022-03-04] MEDS: VITAMINS A AND D 56.7 GM TUBE TP SCH ×3 (21:47)
[2022-03-04] MEDS: ATORVASTATIN 10 MG TABLET GT SCH (21:47)
[2022-03-04] MEDS: ENOXAPARIN SODIUM 40 MG/0.4 ML DISP.SYRIN SQ SCH (21:48)
[2022-03-04 23:20] VITALS: BP 126/69
[2022-03-05] MEDS: IPRATROPIUM NEB FS 0.5 MG/2.5 ML AMPUL.NEB NEB SCH ×4 (00:30→19:44)
[2022-03-05] MEDS: ALBUTEROL FS 2.5 MG/0.5 ML VIAL.NEB NEB SCH ×4 (00:30→19:44)
[2022-03-05 07:47] VITALS: BP 100/63
[2022-03-05] MEDS: MULTIVIT W/MINERALS 1 TAB TABLET GT SCH (09:00)
[2022-03-05] MEDS: ACIDOPHILUS/BULGARICUS 1 EACH TAB.CHEW GT SCH ×3 (09:00→16:28)
[2022-03-05] MEDS: PROSTAT (PYXIS) 30 ML UDC GT SCH ×4 (09:00→21:30)
[2022-03-05] MEDS: METHADONE HCL 10 MG TABLET GT SCH ×2 (09:00→21:30)
[2022-03-05] MEDS: BACLOFEN (10 MG) 10 MG TABLET GT SCH ×4 (09:00→21:30)
[2022-03-05] MEDS: GABAPENTIN 250 MG/5 ML GT SCH ×3 (09:00→16:28)
[2022-03-05] MEDS: FAMOTIDINE (20 MG) 20 MG TABLET GT SCH ×2 (09:00→21:30)
[2022-03-05] MEDS: SUCRALFATE 1 G TABLET GT SCH ×2 (09:00→21:30)
[2022-03-05] MEDS: FERROUS SULFATE UDC 300 MG/5 ML UDC GT SCH (09:00)
[2022-03-05] MEDS: POLYETHYLENE GLYCOL 3350 17 GM POWD.PACK PO SCH (09:01)
[2022-03-05] MEDS: ASCORBIC ACID 500 MG TABLET GT SCH ×2 (09:01→16:32)
[2022-03-05] MEDS: CALCIUM CARBONATE 500 MG TAB.CHEW GT SCH ×3 (09:01→16:32)
[2022-03-05] MEDS: VITAMINS A AND D 56.7 GM TUBE TP SCH ×6 (09:01→21:31)
[2022-03-05] MEDS: HYDROGEN PEROXIDE 480 ML BOTTLE TP SCH ×2 (09:20→19:44)
[2022-03-05] MEDS: THERAHONEY GEL 1.5 OZ TUBE TP SCH ×6 (09:44→21:31)
[2022-03-05] MEDS: DAKINS QUARTER STRENGTH (0.125%) 480 ML BOTTLE TOP SCH ×6 (09:44→21:31)
[2022-03-05 18:53] VITALS: BP 98/58
[2022-03-05] MEDS: ZINC SULFATE 220 MG CAPSULE GT SCH (21:30)
[2022-03-05] MEDS: ATORVASTATIN 10 MG TABLET GT SCH (21:31)
[2022-03-05] MEDS: ENOXAPARIN SODIUM 40 MG/0.4 ML DISP.SYRIN SQ SCH (21:32)
[2022-03-05 23:54] VITALS: BP 105/61
[2022-03-06] MEDS: JEVITY 1.2 CAL 1,000 ML BOTTLE GT PRN ×2 (00:03→22:02)
[2022-03-06] MEDS: IPRATROPIUM NEB FS 0.5 MG/2.5 ML AMPUL.NEB NEB SCH ×4 (01:31→19:24)
[2022-03-06] MEDS: ALBUTEROL FS 2.5 MG/0.5 ML VIAL.NEB NEB SCH ×4 (01:31→19:24)
[2022-03-06] MEDS: HYDROGEN PEROXIDE 480 ML BOTTLE TP SCH ×2 (08:22→19:24)
[2022-03-06 08:57] VITALS: BP 94/61
[2022-03-06] MEDS: ASCORBIC ACID 500 MG TABLET GT SCH ×2 (09:50→16:45)
[2022-03-06] MEDS: POLYETHYLENE GLYCOL 3350 17 GM POWD.PACK PO SCH (09:50)
[2022-03-06] MEDS: SUCRALFATE 1 G TABLET GT SCH ×2 (09:50→21:05)
[2022-03-06] MEDS: CALCIUM CARBONATE 500 MG TAB.CHEW GT SCH ×3 (09:50→16:45)
[2022-03-06] MEDS: FERROUS SULFATE UDC 300 MG/5 ML UDC GT SCH (09:50)
[2022-03-06] MEDS: FAMOTIDINE (20 MG) 20 MG TABLET GT SCH ×2 (09:50→21:05)
[2022-03-06] MEDS: PROSTAT (PYXIS) 30 ML UDC GT SCH ×4 (09:50→21:05)
[2022-03-06] MEDS: ACIDOPHILUS/BULGARICUS 1 EACH TAB.CHEW GT SCH ×3 (09:50→16:45)
[2022-03-06] MEDS: MULTIVIT W/MINERALS 1 TAB TABLET GT SCH (09:50)
[2022-03-06] MEDS: BACLOFEN (10 MG) 10 MG TABLET GT SCH ×4 (09:50→21:05)
[2022-03-06] MEDS: GABAPENTIN 250 MG/5 ML GT SCH ×3 (09:50→16:45)
[2022-03-06] MEDS: METHADONE HCL 10 MG TABLET GT SCH ×2 (09:50→21:05)
[2022-03-06] MEDS: DAKINS QUARTER STRENGTH (0.125%) 480 ML BOTTLE TOP SCH ×6 (09:51→21:05)
[2022-03-06] MEDS: VITAMINS A AND D 56.7 GM TUBE TP SCH ×6 (09:52→21:06)
[2022-03-06] MEDS: THERAHONEY GEL 1.5 OZ TUBE TP SCH ×6 (09:52→21:05)
[2022-03-06 12:00] VITALS: BP 114/62
[2022-03-06 18:59] VITALS: BP 110/72
[2022-03-06] MEDS: ZINC SULFATE 220 MG CAPSULE GT SCH (21:05)
[2022-03-06] MEDS: ATORVASTATIN 10 MG TABLET GT SCH (21:06)
[2022-03-06] MEDS: ENOXAPARIN SODIUM 40 MG/0.4 ML DISP.SYRIN SQ SCH (21:06)
[2022-03-06 23:33] VITALS: BP 108/69
[2022-03-07] MEDS: IPRATROPIUM NEB FS 0.5 MG/2.5 ML AMPUL.NEB NEB SCH ×4 (01:27→19:07)
[2022-03-07] MEDS: ALBUTEROL FS 2.5 MG/0.5 ML VIAL.NEB NEB SCH ×4 (01:27→19:07)
[2022-03-07] MEDS: HYDROGEN PEROXIDE 480 ML BOTTLE TP SCH ×2 (07:27→19:07)
[2022-03-07 08:00] VITALS: BP 103/63
[2022-03-07] MEDS: SUCRALFATE 1 G TABLET GT SCH ×2 (09:15→21:55)
[2022-03-07] MEDS: FERROUS SULFATE UDC 300 MG/5 ML UDC GT SCH (09:17)
[2022-03-07] MEDS: BACLOFEN (10 MG) 10 MG TABLET GT SCH ×4 (09:20→21:55)
[2022-03-07] MEDS: ACIDOPHILUS/BULGARICUS 1 EACH TAB.CHEW GT SCH ×3 (09:21→17:52)
[2022-03-07] MEDS: METHADONE HCL 10 MG TABLET GT SCH ×2 (09:24→21:56)
[2022-03-07] MEDS: FAMOTIDINE (20 MG) 20 MG TABLET GT SCH ×2 (09:26→21:56)
[2022-03-07] MEDS: GABAPENTIN 250 MG/5 ML GT SCH ×3 (09:26→17:00)
[2022-03-07] MEDS: PROSTAT (PYXIS) 30 ML UDC GT SCH ×4 (09:26→21:56)
[2022-03-07] MEDS: ASCORBIC ACID 500 MG TABLET GT SCH ×2 (09:27→17:53)
[2022-03-07] MEDS: MULTIVIT W/MINERALS 1 TAB TABLET GT SCH (09:27)
[2022-03-07] MEDS: CALCIUM CARBONATE 500 MG TAB.CHEW GT SCH ×3 (09:27→17:53)
[2022-03-07] MEDS: POLYETHYLENE GLYCOL 3350 17 GM POWD.PACK PO SCH (09:30)
[2022-03-07] MEDS: THERAHONEY GEL 1.5 OZ TUBE TP SCH ×6 (09:31→21:56)
[2022-03-07] MEDS: VITAMINS A AND D 56.7 GM TUBE TP SCH ×6 (09:31→21:57)
[2022-03-07] MEDS: DAKINS QUARTER STRENGTH (0.125%) 480 ML BOTTLE TOP SCH ×6 (09:31→21:56)
[2022-03-07 12:00] VITALS: BP 129/72
[2022-03-07 20:05] VITALS: BP 101/65
[2022-03-07] MEDS: ZINC SULFATE 220 MG CAPSULE GT SCH (21:56)
[2022-03-07] MEDS: ENOXAPARIN SODIUM 40 MG/0.4 ML DISP.SYRIN SQ SCH (21:57)
[2022-03-07] MEDS: ATORVASTATIN 10 MG TABLET GT SCH (21:57)
[2022-03-07 23:30] VITALS: BP 109/71
[2022-03-07 23:35] LABS: BILIRUBIN,URINE NEGATIVE (NEGATIVE); COLOR,URINE YELLOW (YELLOW); LEUKOCYTE ESTERASE ,URINE 3+ (NEGATIVE); NITRITE, URINE NEGATIVE (NEGATIVE); PROTEIN,URINE 2+ mg/dl (NEGATIVE); UGLUCOSE NEGATIVE (NEGATIVE); UROBILINOGEN,URINE 0.2 EU/dL (0.2)
[2022-03-08] MEDS: JEVITY 1.2 CAL 1,000 ML BOTTLE GT PRN (00:03)
[2022-03-08 00:51] LABS: PH,URINE >9.0 (5.0-8.0)
[2022-03-08 01:05] LABS: BACTERIA,URINE Moderate /HPF (None Seen); RBC,URINE 0-2 /HPF (0-2); SQUAMOUS EPITHELIAL CELL,UR Rare /HPF (None Seen)
[2022-03-08 01:06] LABS: URINE AMORPHOUS PHOSPHATES Moderate /HPF (None Seen)
[2022-03-08] MEDS: ALBUTEROL FS 2.5 MG/0.5 ML VIAL.NEB NEB SCH ×4 (01:06→19:23)
[2022-03-08] MEDS: IPRATROPIUM NEB FS 0.5 MG/2.5 ML AMPUL.NEB NEB SCH ×4 (01:06→19:23)
[2022-03-08 01:15] LABS: TRIPLE PHOSPHATE CRYSTAL,UR Few /HPF (None Seen)
[2022-03-08 07:32] VITALS: BP 111/67
[2022-03-08] MEDS: HYDROGEN PEROXIDE 480 ML BOTTLE TP SCH ×2 (07:50→19:52)
[2022-03-08] MEDS: ACIDOPHILUS/BULGARICUS 1 EACH TAB.CHEW GT SCH ×3 (08:44→16:38)
[2022-03-08] MEDS: FERROUS SULFATE UDC 300 MG/5 ML UDC GT SCH (08:44)
[2022-03-08] MEDS: SUCRALFATE 1 G TABLET GT SCH ×2 (08:44→21:54)
[2022-03-08] MEDS: GABAPENTIN 250 MG/5 ML GT SCH ×3 (08:44→16:38)
[2022-03-08] MEDS: METHADONE HCL 10 MG TABLET GT SCH ×2 (08:45→21:55)
[2022-03-08] MEDS: PROSTAT (PYXIS) 30 ML UDC GT SCH ×4 (08:45→21:55)
[2022-03-08] MEDS: POLYETHYLENE GLYCOL 3350 17 GM POWD.PACK PO SCH (08:45)
[2022-03-08] MEDS: ASCORBIC ACID 500 MG TABLET GT SCH ×2 (08:45→16:38)
[2022-03-08] MEDS: FAMOTIDINE (20 MG) 20 MG TABLET GT SCH ×2 (08:45→21:55)
[2022-03-08] MEDS: BACLOFEN (10 MG) 10 MG TABLET GT SCH ×4 (08:45→21:54)
[2022-03-08] MEDS: CALCIUM CARBONATE 500 MG TAB.CHEW GT SCH ×3 (08:45→16:38)
[2022-03-08] MEDS: MULTIVIT W/MINERALS 1 TAB TABLET GT SCH (08:45)
[2022-03-08] MEDS: VITAMINS A AND D 56.7 GM TUBE TP SCH ×6 (08:46→21:55)
[2022-03-08] MEDS: DAKINS QUARTER STRENGTH (0.125%) 480 ML BOTTLE TOP SCH ×6 (08:46→21:55)
[2022-03-08] MEDS: THERAHONEY GEL 1.5 OZ TUBE TP SCH ×6 (08:46→21:55)
[2022-03-08 13:13] VITALS: BP 119/66
[2022-03-08 19:41] VITALS: BP 104/62
[2022-03-08] MEDS: ZINC SULFATE 220 MG CAPSULE GT SCH (21:55)
[2022-03-08] MEDS: ATORVASTATIN 10 MG TABLET GT SCH (21:55)
[2022-03-08] MEDS: ENOXAPARIN SODIUM 40 MG/0.4 ML DISP.SYRIN SQ SCH (21:56)
[2022-03-09] MEDS: JEVITY 1.2 CAL 1,000 ML BOTTLE GT PRN ×2 (00:31→15:00)
[2022-03-09] MEDS: IPRATROPIUM NEB FS 0.5 MG/2.5 ML AMPUL.NEB NEB SCH ×4 (02:16→19:35)
[2022-03-09] MEDS: ALBUTEROL FS 2.5 MG/0.5 ML VIAL.NEB NEB SCH ×4 (02:16→19:35)
[2022-03-09 07:17] VITALS: BP 114/64
[2022-03-09] MEDS: PROSTAT (PYXIS) 30 ML UDC GT SCH ×4 (09:00→21:55)
[2022-03-09] MEDS: MULTIVIT W/MINERALS 1 TAB TABLET GT SCH (09:00)
[2022-03-09] MEDS: POLYETHYLENE GLYCOL 3350 17 GM POWD.PACK PO SCH (09:00)
[2022-03-09] MEDS: GABAPENTIN 250 MG/5 ML GT SCH ×3 (09:00→17:00)
[2022-03-09] MEDS: ACIDOPHILUS/BULGARICUS 1 EACH TAB.CHEW GT SCH ×3 (09:00→17:00)
[2022-03-09] MEDS: BACLOFEN (10 MG) 10 MG TABLET GT SCH ×4 (09:00→21:54)
[2022-03-09] MEDS: CALCIUM CARBONATE 500 MG TAB.CHEW GT SCH ×3 (09:00→17:00)
[2022-03-09] MEDS: VITAMINS A AND D 56.7 GM TUBE TP SCH ×6 (09:00→21:55)
[2022-03-09] MEDS: ASCORBIC ACID 500 MG TABLET GT SCH ×2 (09:00→17:00)
[2022-03-09] MEDS: DAKINS QUARTER STRENGTH (0.125%) 480 ML BOTTLE TOP SCH ×6 (09:00→21:55)
[2022-03-09] MEDS: THERAHONEY GEL 1.5 OZ TUBE TP SCH ×6 (09:00→21:55)
[2022-03-09] MEDS: METHADONE HCL 10 MG TABLET GT SCH ×2 (09:00→21:55)
[2022-03-09] MEDS: FERROUS SULFATE UDC 300 MG/5 ML UDC GT SCH (09:00)
[2022-03-09] MEDS: FAMOTIDINE (20 MG) 20 MG TABLET GT SCH ×2 (09:00→21:55)
[2022-03-09] MEDS: SUCRALFATE 1 G TABLET GT SCH ×2 (09:00→21:54)
[2022-03-09] MEDS: HYDROGEN PEROXIDE 480 ML BOTTLE TP SCH ×2 (09:37→19:36)
[2022-03-09 13:07] VITALS: BP 131/64
[2022-03-09 19:06] VITALS: BP 105/63
[2022-03-09] MEDS: ZINC SULFATE 220 MG CAPSULE GT SCH (21:55)
[2022-03-09] MEDS: ENOXAPARIN SODIUM 40 MG/0.4 ML DISP.SYRIN SQ SCH (21:56)
[2022-03-09] MEDS: ATORVASTATIN 10 MG TABLET GT SCH (21:56)
[2022-03-10] MEDS: IPRATROPIUM NEB FS 0.5 MG/2.5 ML AMPUL.NEB NEB SCH ×4 (01:36→19:28)
[2022-03-10] MEDS: ALBUTEROL FS 2.5 MG/0.5 ML VIAL.NEB NEB SCH ×4 (01:36→19:28)
[2022-03-10 08:03] VITALS: BP 128/67
[2022-03-10] MEDS: HYDROGEN PEROXIDE 480 ML BOTTLE TP SCH ×2 (09:02→19:28)
[2022-03-10] MEDS: SUCRALFATE 1 G TABLET GT SCH ×2 (09:40→20:26)
[2022-03-10] MEDS: FERROUS SULFATE UDC 300 MG/5 ML UDC GT SCH (09:40)
[2022-03-10] MEDS: GABAPENTIN 250 MG/5 ML GT SCH ×3 (09:41→17:51)
[2022-03-10] MEDS: ACIDOPHILUS/BULGARICUS 1 EACH TAB.CHEW GT SCH ×3 (09:41→17:51)
[2022-03-10] MEDS: ASCORBIC ACID 500 MG TABLET GT SCH ×2 (09:42→17:51)
[2022-03-10] MEDS: FAMOTIDINE (20 MG) 20 MG TABLET GT SCH ×2 (09:42→20:26)
[2022-03-10] MEDS: METHADONE HCL 10 MG TABLET GT SCH ×2 (09:42→20:26)
[2022-03-10] MEDS: CALCIUM CARBONATE 500 MG TAB.CHEW GT SCH ×3 (09:42→17:51)
[2022-03-10] MEDS: BACLOFEN (10 MG) 10 MG TABLET GT SCH ×4 (09:42→20:26)
[2022-03-10] MEDS: PROSTAT (PYXIS) 30 ML UDC GT SCH ×4 (09:42→20:26)
[2022-03-10] MEDS: MULTIVIT W/MINERALS 1 TAB TABLET GT SCH (09:42)
[2022-03-10] MEDS: DAKINS QUARTER STRENGTH (0.125%) 480 ML BOTTLE TOP SCH ×6 (09:43→20:27)
[2022-03-10] MEDS: POLYETHYLENE GLYCOL 3350 17 GM POWD.PACK PO SCH (09:43)
[2022-03-10] MEDS: THERAHONEY GEL 1.5 OZ TUBE TP SCH ×6 (09:44→20:27)
[2022-03-10] MEDS: VITAMINS A AND D 56.7 GM TUBE TP SCH ×6 (09:45→20:27)
[2022-03-10 19:25] VITALS: BP 116/69
[2022-03-10] MEDS: ZINC SULFATE 220 MG CAPSULE GT SCH (20:26)
[2022-03-10] MEDS: ATORVASTATIN 10 MG TABLET GT SCH (21:15)
[2022-03-10] MEDS: ENOXAPARIN SODIUM 40 MG/0.4 ML DISP.SYRIN SQ SCH (21:16)
[2022-03-11 00:35] VITALS: BP 118/71
[2022-03-11] MEDS: IPRATROPIUM NEB FS 0.5 MG/2.5 ML AMPUL.NEB NEB SCH ×4 (01:13→19:42)
[2022-03-11] MEDS: ALBUTEROL FS 2.5 MG/0.5 ML VIAL.NEB NEB SCH ×4 (01:13→19:42)
[2022-03-11] MEDS: JEVITY 1.2 CAL 1,000 ML BOTTLE GT PRN ×2 (01:35→21:17)
[2022-03-11] MEDS: HYDROGEN PEROXIDE 480 ML BOTTLE TP SCH ×2 (09:00→20:40)
[2022-03-11] MEDS: SUCRALFATE 1 G TABLET GT SCH ×2 (09:56→20:55)
[2022-03-11] MEDS: ACIDOPHILUS/BULGARICUS 1 EACH TAB.CHEW GT SCH ×3 (09:56→16:42)
[2022-03-11] MEDS: BACLOFEN (10 MG) 10 MG TABLET GT SCH ×4 (09:56→20:55)
[2022-03-11] MEDS: FERROUS SULFATE UDC 300 MG/5 ML UDC GT SCH (09:56)
[2022-03-11] MEDS: GABAPENTIN 250 MG/5 ML GT SCH ×3 (09:56→16:42)
[2022-03-11] MEDS: CALCIUM CARBONATE 500 MG TAB.CHEW GT SCH ×3 (09:57→16:43)
[2022-03-11] MEDS: ASCORBIC ACID 500 MG TABLET GT SCH ×2 (09:57→16:43)
[2022-03-11] MEDS: FAMOTIDINE (20 MG) 20 MG TABLET GT SCH ×2 (09:57→20:55)
[2022-03-11] MEDS: MULTIVIT W/MINERALS 1 TAB TABLET GT SCH (09:57)
[2022-03-11] MEDS: THERAHONEY GEL 1.5 OZ TUBE TP SCH ×6 (09:57→20:56)
[2022-03-11] MEDS: DAKINS QUARTER STRENGTH (0.125%) 480 ML BOTTLE TOP SCH ×6 (09:57→20:56)
[2022-03-11] MEDS: POLYETHYLENE GLYCOL 3350 17 GM POWD.PACK PO SCH (09:57)
[2022-03-11] MEDS: VITAMINS A AND D 56.7 GM TUBE TP SCH ×6 (09:57→20:57)
[2022-03-11] MEDS: METHADONE HCL 10 MG TABLET GT SCH ×2 (09:57→20:55)
[2022-03-11] MEDS: PROSTAT (PYXIS) 30 ML UDC GT SCH ×4 (09:57→20:55)
[2022-03-11 20:16] VITALS: BP 105/60
[2022-03-11] MEDS: ZINC SULFATE 220 MG CAPSULE GT SCH (20:55)
[2022-03-11] MEDS: ENOXAPARIN SODIUM 40 MG/0.4 ML DISP.SYRIN SQ SCH (21:17)
[2022-03-11] MEDS: ATORVASTATIN 10 MG TABLET GT SCH (21:17)
[2022-03-12 00:58] VITALS: BP 142/77
[2022-03-12] MEDS: ALBUTEROL FS 2.5 MG/0.5 ML VIAL.NEB NEB SCH ×4 (01:26→18:52)
[2022-03-12] MEDS: IPRATROPIUM NEB FS 0.5 MG/2.5 ML AMPUL.NEB NEB SCH ×4 (01:26→18:52)
[2022-03-12 08:00] VITALS: BP 129/71
[2022-03-12] MEDS: SUCRALFATE 1 G TABLET GT SCH ×2 (08:52→20:22)
[2022-03-12] MEDS: ACIDOPHILUS/BULGARICUS 1 EACH TAB.CHEW GT SCH ×3 (08:52→17:59)
[2022-03-12] MEDS: FERROUS SULFATE UDC 300 MG/5 ML UDC GT SCH (08:52)
[2022-03-12] MEDS: FAMOTIDINE (20 MG) 20 MG TABLET GT SCH ×2 (08:53→20:22)
[2022-03-12] MEDS: BACLOFEN (10 MG) 10 MG TABLET GT SCH ×4 (08:53→20:22)
[2022-03-12] MEDS: ASCORBIC ACID 500 MG TABLET GT SCH ×2 (08:54→17:00)
[2022-03-12] MEDS: PROSTAT (PYXIS) 30 ML UDC GT SCH ×4 (08:54→20:22)
[2022-03-12] MEDS: MULTIVIT W/MINERALS 1 TAB TABLET GT SCH (08:54)
[2022-03-12] MEDS: CALCIUM CARBONATE 500 MG TAB.CHEW GT SCH ×3 (08:54→17:00)
[2022-03-12] MEDS: POLYETHYLENE GLYCOL 3350 17 GM POWD.PACK PO SCH (08:55)
[2022-03-12] MEDS: METHADONE HCL 10 MG TABLET GT SCH ×2 (08:58→20:22)
[2022-03-12] MEDS: GABAPENTIN 250 MG/5 ML GT SCH ×3 (09:02→17:59)
[2022-03-12] MEDS: HYDROGEN PEROXIDE 480 ML BOTTLE TP SCH ×2 (09:49→21:04)
[2022-03-12] MEDS: DAKINS QUARTER STRENGTH (0.125%) 480 ML BOTTLE TOP SCH ×6 (09:54→20:23)
[2022-03-12] MEDS: THERAHONEY GEL 1.5 OZ TUBE TP SCH ×6 (09:55→20:23)
[2022-03-12] MEDS: VITAMINS A AND D 56.7 GM TUBE TP SCH ×6 (09:55→20:23)
[2022-03-12 12:00] VITALS: BP 131/78
[2022-03-12 20:16] VITALS: BP 106/65
[2022-03-12] MEDS: ZINC SULFATE 220 MG CAPSULE GT SCH (20:22)
[2022-03-12] MEDS: ENOXAPARIN SODIUM 40 MG/0.4 ML DISP.SYRIN SQ SCH (21:05)
[2022-03-12] MEDS: ATORVASTATIN 10 MG TABLET GT SCH (21:05)
[2022-03-13] MEDS: IPRATROPIUM NEB FS 0.5 MG/2.5 ML AMPUL.NEB NEB SCH ×4 (01:08→19:08)
[2022-03-13] MEDS: ALBUTEROL FS 2.5 MG/0.5 ML VIAL.NEB NEB SCH ×4 (01:08→19:08)
[2022-03-13] MEDS: HYDROGEN PEROXIDE 480 ML BOTTLE TP SCH ×2 (08:06→21:14)
[2022-03-13] MEDS: PROSTAT (PYXIS) 30 ML UDC GT SCH ×4 (09:13→20:44)
[2022-03-13] MEDS: METHADONE HCL 10 MG TABLET GT SCH ×2 (09:13→20:44)
[2022-03-13] MEDS: MULTIVIT W/MINERALS 1 TAB TABLET GT SCH (09:13)
[2022-03-13] MEDS: BACLOFEN (10 MG) 10 MG TABLET GT SCH ×4 (09:13→20:43)
[2022-03-13] MEDS: DAKINS QUARTER STRENGTH (0.125%) 480 ML BOTTLE TOP SCH ×6 (09:13→20:44)
[2022-03-13] MEDS: ASCORBIC ACID 500 MG TABLET GT SCH ×2 (09:13→16:52)
[2022-03-13] MEDS: GABAPENTIN 250 MG/5 ML GT SCH ×3 (09:13→16:50)
[2022-03-13] MEDS: CALCIUM CARBONATE 500 MG TAB.CHEW GT SCH ×3 (09:13→16:52)
[2022-03-13] MEDS: POLYETHYLENE GLYCOL 3350 17 GM POWD.PACK PO SCH (09:13)
[2022-03-13] MEDS: FERROUS SULFATE UDC 300 MG/5 ML UDC GT SCH (09:13)
[2022-03-13] MEDS: ACIDOPHILUS/BULGARICUS 1 EACH TAB.CHEW GT SCH ×3 (09:13→16:51)
[2022-03-13] MEDS: FAMOTIDINE (20 MG) 20 MG TABLET GT SCH ×2 (09:13→20:44)
[2022-03-13] MEDS: SUCRALFATE 1 G TABLET GT SCH ×2 (09:13→20:43)
[2022-03-13] MEDS: VITAMINS A AND D 56.7 GM TUBE TP SCH ×6 (09:14→20:45)
[2022-03-13] MEDS: THERAHONEY GEL 1.5 OZ TUBE TP SCH ×6 (09:14→20:44)
[2022-03-13] MEDS: JEVITY 1.2 CAL 1,000 ML BOTTLE GT PRN (15:21)
[2022-03-13 20:00] VITALS: BP 128/74
[2022-03-13] MEDS: ZINC SULFATE 220 MG CAPSULE GT SCH (20:44)
[2022-03-13] MEDS: ATORVASTATIN 10 MG TABLET GT SCH (21:17)
[2022-03-13] MEDS: ENOXAPARIN SODIUM 40 MG/0.4 ML DISP.SYRIN SQ SCH (21:18)
[2022-03-14] MEDS: IPRATROPIUM NEB FS 0.5 MG/2.5 ML AMPUL.NEB NEB SCH ×4 (00:59→20:08)
[2022-03-14] MEDS: ALBUTEROL FS 2.5 MG/0.5 ML VIAL.NEB NEB SCH ×4 (00:59→20:08)
[2022-03-14] MEDS: JEVITY 1.2 CAL 1,000 ML BOTTLE GT PRN (05:11)
[2022-03-14] MEDS: SUCRALFATE 1 G TABLET GT SCH ×2 (09:54→21:59)
[2022-03-14] MEDS: FERROUS SULFATE UDC 300 MG/5 ML UDC GT SCH (09:54)
[2022-03-14] MEDS: ACIDOPHILUS/BULGARICUS 1 EACH TAB.CHEW GT SCH ×3 (09:54→17:34)
[2022-03-14] MEDS: BACLOFEN (10 MG) 10 MG TABLET GT SCH ×4 (09:54→21:59)
[2022-03-14] MEDS: GABAPENTIN 250 MG/5 ML GT SCH ×3 (09:54→17:34)
[2022-03-14] MEDS: ASCORBIC ACID 500 MG TABLET GT SCH ×2 (09:55→17:34)
[2022-03-14] MEDS: FAMOTIDINE (20 MG) 20 MG TABLET GT SCH ×2 (09:55→21:59)
[2022-03-14] MEDS: PROSTAT (PYXIS) 30 ML UDC GT SCH ×4 (09:55→21:59)
[2022-03-14] MEDS: THERAHONEY GEL 1.5 OZ TUBE TP SCH ×6 (09:55→21:59)
[2022-03-14] MEDS: METHADONE HCL 10 MG TABLET GT SCH ×2 (09:55→21:59)
[2022-03-14] MEDS: POLYETHYLENE GLYCOL 3350 17 GM POWD.PACK PO SCH (09:55)
[2022-03-14] MEDS: CALCIUM CARBONATE 500 MG TAB.CHEW GT SCH ×3 (09:55→17:34)
[2022-03-14] MEDS: DAKINS QUARTER STRENGTH (0.125%) 480 ML BOTTLE TOP SCH ×6 (09:55→21:59)
[2022-03-14] MEDS: MULTIVIT W/MINERALS 1 TAB TABLET GT SCH (09:55)
[2022-03-14] MEDS: VITAMINS A AND D 56.7 GM TUBE TP SCH ×6 (09:56→21:59)
[2022-03-14] MEDS: HYDROGEN PEROXIDE 480 ML BOTTLE TP SCH ×2 (10:32→20:09)
[2022-03-14 20:00] VITALS: BP 115/72
[2022-03-14] MEDS: ZINC SULFATE 220 MG CAPSULE GT SCH (21:59)
[2022-03-14] MEDS: ATORVASTATIN 10 MG TABLET GT SCH (22:01)
[2022-03-14] MEDS: ENOXAPARIN SODIUM 40 MG/0.4 ML DISP.SYRIN SQ SCH (22:01)
[2022-03-15] MEDS: IPRATROPIUM NEB FS 0.5 MG/2.5 ML AMPUL.NEB NEB SCH ×4 (02:06→20:02)
[2022-03-15] MEDS: ALBUTEROL FS 2.5 MG/0.5 ML VIAL.NEB NEB SCH ×4 (02:06→20:02)
[2022-03-15] MEDS: HYDROGEN PEROXIDE 480 ML BOTTLE TP SCH ×2 (07:45→20:02)
[2022-03-15 08:00] VITALS: BP 115/64
[2022-03-15] MEDS: METHADONE HCL 10 MG TABLET GT SCH ×2 (08:57→21:50)
[2022-03-15] MEDS: POLYETHYLENE GLYCOL 3350 17 GM POWD.PACK PO SCH (09:09)
[2022-03-15] MEDS: MULTIVIT W/MINERALS 1 TAB TABLET GT SCH (09:09)
[2022-03-15] MEDS: FERROUS SULFATE UDC 300 MG/5 ML UDC GT SCH (09:09)
[2022-03-15] MEDS: SUCRALFATE 1 G TABLET GT SCH ×2 (09:09→21:50)
[2022-03-15] MEDS: GABAPENTIN 250 MG/5 ML GT SCH ×3 (09:09→16:51)
[2022-03-15] MEDS: ASCORBIC ACID 500 MG TABLET GT SCH ×2 (09:09→16:52)
[2022-03-15] MEDS: PROSTAT (PYXIS) 30 ML UDC GT SCH ×4 (09:09→21:50)
[2022-03-15] MEDS: BACLOFEN (10 MG) 10 MG TABLET GT SCH ×4 (09:09→21:50)
[2022-03-15] MEDS: ACIDOPHILUS/BULGARICUS 1 EACH TAB.CHEW GT SCH ×3 (09:09→16:51)
[2022-03-15] MEDS: FAMOTIDINE (20 MG) 20 MG TABLET GT SCH ×2 (09:09→21:50)
[2022-03-15] MEDS: CALCIUM CARBONATE 500 MG TAB.CHEW GT SCH ×3 (09:09→16:52)
[2022-03-15] MEDS: DAKINS QUARTER STRENGTH (0.125%) 480 ML BOTTLE TOP SCH ×6 (09:10→21:51)
[2022-03-15] MEDS: VITAMINS A AND D 56.7 GM TUBE TP SCH ×6 (09:10→21:51)
[2022-03-15] MEDS: THERAHONEY GEL 1.5 OZ TUBE TP SCH ×6 (09:10→21:51)
[2022-03-15 12:00] VITALS: BP 119/61
[2022-03-15] MEDS: JEVITY 1.2 CAL 1,000 ML BOTTLE GT PRN (15:02)
[2022-03-15 19:19] VITALS: BP 114/73
[2022-03-15] MEDS: ZINC SULFATE 220 MG CAPSULE GT SCH (21:50)
[2022-03-15] MEDS: ATORVASTATIN 10 MG TABLET GT SCH (21:51)
[2022-03-15] MEDS: ENOXAPARIN SODIUM 40 MG/0.4 ML DISP.SYRIN SQ SCH (21:51)
[2022-03-16] MEDS: ALBUTEROL FS 2.5 MG/0.5 ML VIAL.NEB NEB SCH ×4 (02:25→20:23)
[2022-03-16] MEDS: IPRATROPIUM NEB FS 0.5 MG/2.5 ML AMPUL.NEB NEB SCH ×4 (02:25→20:23)
[2022-03-16 07:50] VITALS: BP 103/66
[2022-03-16] MEDS: THERAHONEY GEL 1.5 OZ TUBE TP SCH ×6 (09:00→21:44)
[2022-03-16] MEDS: FERROUS SULFATE UDC 300 MG/5 ML UDC GT SCH (09:00)
[2022-03-16] MEDS: SUCRALFATE 1 G TABLET GT SCH ×2 (09:00→21:43)
[2022-03-16] MEDS: GABAPENTIN 250 MG/5 ML GT SCH ×3 (09:00→17:49)
[2022-03-16] MEDS: CALCIUM CARBONATE 500 MG TAB.CHEW GT SCH ×3 (09:00→17:50)
[2022-03-16] MEDS: VITAMINS A AND D 56.7 GM TUBE TP SCH ×6 (09:00→21:44)
[2022-03-16] MEDS: PROSTAT (PYXIS) 30 ML UDC GT SCH ×4 (09:00→21:43)
[2022-03-16] MEDS: ACIDOPHILUS/BULGARICUS 1 EACH TAB.CHEW GT SCH ×3 (09:00→17:49)
[2022-03-16] MEDS: POLYETHYLENE GLYCOL 3350 17 GM POWD.PACK PO SCH (09:00)
[2022-03-16] MEDS: MULTIVIT W/MINERALS 1 TAB TABLET GT SCH (09:00)
[2022-03-16] MEDS: DAKINS QUARTER STRENGTH (0.125%) 480 ML BOTTLE TOP SCH ×6 (09:00→21:43)
[2022-03-16] MEDS: FAMOTIDINE (20 MG) 20 MG TABLET GT SCH ×2 (09:00→21:43)
[2022-03-16] MEDS: ASCORBIC ACID 500 MG TABLET GT SCH ×2 (09:00→17:50)
[2022-03-16] MEDS: BACLOFEN (10 MG) 10 MG TABLET GT SCH ×4 (09:00→21:43)
[2022-03-16] MEDS: HYDROGEN PEROXIDE 480 ML BOTTLE TP SCH ×2 (09:00→20:24)
[2022-03-16] MEDS: METHADONE HCL 10 MG TABLET GT SCH ×2 (10:23→21:43)
[2022-03-16] MEDS: JEVITY 1.2 CAL 1,000 ML BOTTLE GT PRN (15:00)
[2022-03-16 19:32] VITALS: BP 124/72
[2022-03-16] MEDS: ZINC SULFATE 220 MG CAPSULE GT SCH (21:43)
[2022-03-16] MEDS: ATORVASTATIN 10 MG TABLET GT SCH (21:44)
[2022-03-16] MEDS: ENOXAPARIN SODIUM 40 MG/0.4 ML DISP.SYRIN SQ SCH (21:44)
[2022-03-17 00:44] VITALS: BP 120/68
[2022-03-17] MEDS: ALBUTEROL FS 2.5 MG/0.5 ML VIAL.NEB NEB SCH ×4 (01:53→19:33)
[2022-03-17] MEDS: IPRATROPIUM NEB FS 0.5 MG/2.5 ML AMPUL.NEB NEB SCH ×4 (01:53→19:33)
[2022-03-17 07:26] VITALS: BP 121/69
[2022-03-17] MEDS: HYDROGEN PEROXIDE 480 ML BOTTLE TP SCH ×2 (08:23→19:33)
[2022-03-17] MEDS: SUCRALFATE 1 G TABLET GT SCH ×2 (09:46→21:43)
[2022-03-17] MEDS: FERROUS SULFATE UDC 300 MG/5 ML UDC GT SCH (09:46)
[2022-03-17] MEDS: ACIDOPHILUS/BULGARICUS 1 EACH TAB.CHEW GT SCH ×3 (09:47→17:03)
[2022-03-17] MEDS: GABAPENTIN 250 MG/5 ML GT SCH ×3 (09:47→17:03)
[2022-03-17] MEDS: BACLOFEN (10 MG) 10 MG TABLET GT SCH ×4 (09:47→21:43)
[2022-03-17] MEDS: MULTIVIT W/MINERALS 1 TAB TABLET GT SCH (09:48)
[2022-03-17] MEDS: METHADONE HCL 10 MG TABLET GT SCH ×2 (09:48→21:44)
[2022-03-17] MEDS: ASCORBIC ACID 500 MG TABLET GT SCH ×2 (09:48→17:04)
[2022-03-17] MEDS: FAMOTIDINE (20 MG) 20 MG TABLET GT SCH ×2 (09:48→21:44)
[2022-03-17] MEDS: PROSTAT (PYXIS) 30 ML UDC GT SCH ×4 (09:48→21:44)
[2022-03-17] MEDS: CALCIUM CARBONATE 500 MG TAB.CHEW GT SCH ×3 (09:48→17:03)
[2022-03-17] MEDS: DAKINS QUARTER STRENGTH (0.125%) 480 ML BOTTLE TOP SCH ×6 (09:49→21:44)
[2022-03-17] MEDS: THERAHONEY GEL 1.5 OZ TUBE TP SCH ×6 (09:49→21:44)
[2022-03-17] MEDS: POLYETHYLENE GLYCOL 3350 17 GM POWD.PACK PO SCH (09:49)
[2022-03-17] MEDS: VITAMINS A AND D 56.7 GM TUBE TP SCH ×6 (09:50→21:44)
[2022-03-17 12:30] VITALS: BP 137/79
[2022-03-17] MEDS: JEVITY 1.2 CAL 1,000 ML BOTTLE GT PRN (17:05)
[2022-03-17 19:42] VITALS: BP 99/56
[2022-03-17] MEDS: ZINC SULFATE 220 MG CAPSULE GT SCH (21:44)
[2022-03-17] MEDS: ATORVASTATIN 10 MG TABLET GT SCH (21:44)
[2022-03-17] MEDS: ENOXAPARIN SODIUM 40 MG/0.4 ML DISP.SYRIN SQ SCH (21:45)
[2022-03-18] MEDS: ALBUTEROL FS 2.5 MG/0.5 ML VIAL.NEB NEB SCH ×4 (01:42→18:44)
[2022-03-18] MEDS: IPRATROPIUM NEB FS 0.5 MG/2.5 ML AMPUL.NEB NEB SCH ×4 (01:42→18:44)
[2022-03-18] MEDS: HYDROGEN PEROXIDE 480 ML BOTTLE TP SCH ×2 (06:44→20:45)
[2022-03-18 07:23] VITALS: BP 117/64
[2022-03-18] MEDS: SUCRALFATE 1 G TABLET GT SCH ×2 (09:49→21:35)
[2022-03-18] MEDS: ACIDOPHILUS/BULGARICUS 1 EACH TAB.CHEW GT SCH ×3 (09:49→17:36)
[2022-03-18] MEDS: FERROUS SULFATE UDC 300 MG/5 ML UDC GT SCH (09:49)
[2022-03-18] MEDS: GABAPENTIN 250 MG/5 ML GT SCH ×3 (09:49→17:36)
[2022-03-18] MEDS: BACLOFEN (10 MG) 10 MG TABLET GT SCH ×4 (09:50→21:35)
[2022-03-18] MEDS: METHADONE HCL 10 MG TABLET GT SCH ×2 (09:51→21:36)
[2022-03-18] MEDS: PROSTAT (PYXIS) 30 ML UDC GT SCH ×4 (09:51→21:36)
[2022-03-18] MEDS: FAMOTIDINE (20 MG) 20 MG TABLET GT SCH ×2 (09:51→21:36)
[2022-03-18] MEDS: MULTIVIT W/MINERALS 1 TAB TABLET GT SCH (09:51)
[2022-03-18] MEDS: DAKINS QUARTER STRENGTH (0.125%) 480 ML BOTTLE TOP SCH ×6 (09:52→21:36)
[2022-03-18] MEDS: ASCORBIC ACID 500 MG TABLET GT SCH ×2 (09:52→17:36)
[2022-03-18] MEDS: POLYETHYLENE GLYCOL 3350 17 GM POWD.PACK PO SCH (09:52)
[2022-03-18] MEDS: CALCIUM CARBONATE 500 MG TAB.CHEW GT SCH ×3 (09:52→17:36)
[2022-03-18] MEDS: THERAHONEY GEL 1.5 OZ TUBE TP SCH ×6 (09:53→21:36)
[2022-03-18] MEDS: VITAMINS A AND D 56.7 GM TUBE TP SCH ×6 (09:53→21:37)
[2022-03-18 15:03] VITALS: BP 145/80
[2022-03-18] MEDS: JEVITY 1.2 CAL 1,000 ML BOTTLE GT PRN (17:39)
[2022-03-18 19:02] VITALS: BP 107/77
[2022-03-18] MEDS: ZINC SULFATE 220 MG CAPSULE GT SCH (21:36)
[2022-03-18] MEDS: ATORVASTATIN 10 MG TABLET GT SCH (21:37)
[2022-03-18] MEDS: ENOXAPARIN SODIUM 40 MG/0.4 ML DISP.SYRIN SQ SCH (21:37)
[2022-03-18] MEDS: ACETAMINOPHEN 650 MG/20 ML UDC- SA PATIENTS-PAIN ONLY GT PRN (23:15)
[2022-03-19] MEDS: IPRATROPIUM NEB FS 0.5 MG/2.5 ML AMPUL.NEB NEB SCH ×4 (00:37→19:32)
[2022-03-19] MEDS: ALBUTEROL FS 2.5 MG/0.5 ML VIAL.NEB NEB SCH ×4 (00:37→19:32)
[2022-03-19 07:18] VITALS: BP 128/76
[2022-03-19] MEDS: THERAHONEY GEL 1.5 OZ TUBE TP SCH ×3 (09:00)
[2022-03-19] MEDS: DAKINS QUARTER STRENGTH (0.125%) 480 ML BOTTLE TOP SCH ×3 (09:00)
[2022-03-19] MEDS: VITAMINS A AND D 56.7 GM TUBE TP SCH ×3 (09:00)
[2022-03-19] MEDS: GABAPENTIN 250 MG/5 ML GT SCH ×3 (09:03→17:27)
[2022-03-19] MEDS: FERROUS SULFATE UDC 300 MG/5 ML UDC GT SCH (09:03)
[2022-03-19] MEDS: ACIDOPHILUS/BULGARICUS 1 EACH TAB.CHEW GT SCH ×3 (09:04→17:27)
[2022-03-19] MEDS: SUCRALFATE 1 G TABLET GT SCH (09:04)
[2022-03-19] MEDS: BACLOFEN (10 MG) 10 MG TABLET GT SCH ×3 (09:04→17:27)
[2022-03-19] MEDS: CALCIUM CARBONATE 500 MG TAB.CHEW GT SCH ×3 (09:05→17:28)
[2022-03-19] MEDS: ASCORBIC ACID 500 MG TABLET GT SCH ×2 (09:05→17:28)
[2022-03-19] MEDS: FAMOTIDINE (20 MG) 20 MG TABLET GT SCH (09:05)
[2022-03-19] MEDS: MULTIVIT W/MINERALS 1 TAB TABLET GT SCH (09:05)
[2022-03-19] MEDS: PROSTAT (PYXIS) 30 ML UDC GT SCH ×3 (09:05→17:27)
[2022-03-19] MEDS: POLYETHYLENE GLYCOL 3350 17 GM POWD.PACK PO SCH (09:05)
[2022-03-19] MEDS: METHADONE HCL 10 MG TABLET GT SCH (09:07)
[2022-03-19] MEDS: HYDROGEN PEROXIDE 480 ML BOTTLE TP SCH ×2 (09:28→19:33)
[2022-03-19 12:12] VITALS: BP 127/72
[2022-03-19] MEDS: ACETAMINOPHEN 650 MG/20 ML UDC- SA PATIENTS-PAIN ONLY GT PRN (18:15)
[2022-03-19 19:19] VITALS: BP 98/68
[2022-03-28] MEDS ORDERED: VANC1FRO2 IV (11:44)
[2022-03-28] MEDS ORDERED: CEFE2FRO IV (11:44)
[2022-05-04] MEDS ORDERED: TUBERCULIN,PURIF.PROT.DERIV. 5 TU/0.1 ML VIAL ID SCH (09:00)
== END 2022-03-19 14:00 | disposition short-term general hospital (02) | DRG 981 ==
LOC: SA → UNDOLOA 03-19 20:30
PROVIDERS: ADMIT Internal Medicine; ATTEND Internal Medicine
PROC: 5A1935Z Respiratory Ventilation, Less than 24 Consecutive Hours (ICD-10-PCS; 2022-02-20)
PROC: 0KBN0ZZ Excision of Right Hip Muscle, Open Approach (ICD-10-PCS; 2022-02-25)
PROC: 0KBP0ZZ Excision of Left Hip Muscle, Open Approach (ICD-10-PCS; 2022-02-25)
PROC: 5A1955Z Respiratory Ventilation, Greater than 96 Consecutive Hours (ICD-10-PCS; principal; 2022-02-27)
PROC: 0KBN0ZZ Excision of Right Hip Muscle, Open Approach (ICD-10-PCS; 2022-03-04)
PROC: 0KBP0ZZ Excision of Left Hip Muscle, Open Approach (ICD-10-PCS; 2022-03-04)
PROC: 0KBN0ZZ Excision of Right Hip Muscle, Open Approach (ICD-10-PCS; 2022-03-11)
PROC: 0KBP0ZZ Excision of Left Hip Muscle, Open Approach (ICD-10-PCS; 2022-03-11)
DX: J96.11 Chronic respiratory failure with hypoxia (principal); G93.41 Metabolic encephalopathy; L89.154 Pressure ulcer of sacral region, stage 4; L89.324 Pressure ulcer of left buttock, stage 4; L89.314 Pressure ulcer of right buttock, stage 4; R53.2 Functional quadriplegia; Z99.11 Dependence on respirator [ventilator] status; K94.09 Other complications of colostomy; L03.311 Cellulitis of abdominal wall; D64.9 Anemia, unspecified; E11.9 Type 2 diabetes mellitus without complications; G35 Multiple sclerosis; I10 Essential (primary) hypertension; L60.3 Nail dystrophy; N20.0 Calculus of kidney; R13.10 Dysphagia, unspecified; Z20.822 Contact with and (suspected) exposure to COVID-19; Z74.01 Bed confinement status; Z85.828 Personal history of other malignant neoplasm of skin; Z88.0 Allergy status to penicillin; Z93.3 Colostomy status; Z93.6 Other artificial openings of urinary tract status; B95.62 Methicillin resistant Staphylococcus aureus infection as the cause of diseases classified elsewhere; C44.91 Basal cell carcinoma of skin, unspecified; N18.9 Chronic kidney disease, unspecified; E11.22 Type 2 diabetes mellitus with diabetic chronic kidney disease; I12.9 Hypertensive chronic kidney disease with stage 1 through stage 4 chronic kidney disease, or unspecified chronic kidney disease; Z87.01 Personal history of pneumonia (recurrent); G89.29 Other chronic pain; K21.9 Gastro-esophageal reflux disease without esophagitis; Z93.0 Tracheostomy status
CPT/HCPCS: 31720; 36415; 36600; 71045-TC; 81001; 82803-TC; 84443-TC; 86580-TC; 87086-TC; 94003-TC; 94640-TC; 94760-TC; 94762-TC; 94799-TC; A4623; A6253; A7526; U0003

== ENCOUNTER 2022-03-19 20:05 | Inpatient (IN) | payer MEDICARE, OTHER ==
[~2022-03-19] VITALS: Ht 152.4 cm; Wt 74.8 kg
[2022-03-19] MEDS ORDERED: VANCOMYCIN 500 MG VIAL ONE (20:43)
[2022-03-19] MEDS ORDERED: VANCOMYCIN 1 GM VIAL ONE (20:43)
[2022-03-19] MEDS ORDERED: PIPERACILLIN /TAZOBACTAM 3.375 G VIAL IV ONE (20:43)
[2022-03-19] MEDS ORDERED: PIPERACILLIN /TAZOBACTAM 3.375 G in IV D5W 50 ML IV ONE (21:00)
[2022-03-19] MEDS ORDERED: IV NS 0.9% 1,000 ML IV ONE ×2 (21:00→22:30)
[2022-03-19] MEDS ORDERED: VANCOMYCIN 1.25 GM in IV D5W 500 ML IV ONE (21:00)
[2022-03-19 21:01] LABS: BASOPHILS % (AUTO) 0.2 % (0.0-2.0); EOSINOPHILS % (AUTO) 0.4 % (0.0-6.0); HEMATOCRIT 32 % (39-51); HEMOGLOBIN 10.1 g/dL (13.5-17.5); LYMPHOCYTES # (AUTO) 1.2 K/uL (0.8-4.8); LYMPHOCYTES % (AUTO) 7.3 % (20.0-44.0); MEAN CORPUSCULAR HGB CONC 31 g/dl (31.0-36.0); MEAN CORPUSCULAR VOLUME 88 fL (80-96); MONOCYTES # (AUTO) 1.3 K/uL (0.1-1.30); NEUTROPHILS # (AUTO) 13.9 K/uL (1.8-8.9); NEUTROPHILS % (AUTO) 84.1 % (43.0-81.0); PLATELET COUNT (AUTO) 494 K/uL (150-450); RED BLOOD CELL COUNT(AUTO) 3.65 MIL/uL (4.5-6.0); WHITE BLOOD COUNT (AUTO) 16.5 K/uL (4.3-11.0)
[2022-03-19 21:34] LABS: COLOR,URINE YELLOW (YELLOW)
[2022-03-19 21:35] LABS: ALANINE AMINOTRANSFERASE 21 U/L (12-78); ALBUMIN 1.8 g/dL (3.4-5.0); ALKALINE PHOSPHATASE 167 U/L (46-116); ASPARTATE AMINOTRANSFERASE 20 U/L (15-37); BILIRUBIN,DIRECT 0.2 mg/dL (0.0-0.2); BILIRUBIN,TOTAL 0.4 mg/dL (0.2-1.0); CALCIUM, SERUM 8.6 mg/dL (8.5-10.1); CARBON DIOXIDE 27 mmol/L (21-32); CHLORIDE 103 mmol/L (98-107); CREATININE 0.9 mg/dL (0.6-1.3); GLUCOSE 132 mg/dL (74-106); POTASSIUM 4.1 mmol/L (3.5-5.1); SODIUM SERUM 136 mmol/L (136-145); TOTAL PROTEIN, SERUM 7.8 g/dL (6.4-8.2); UREA NITROGEN, BLOOD 28 mg/dL (7-18)
[2022-03-19 21:35] LABS: PROTEIN,URINE 1+ mg/dl (NEGATIVE); UGLUCOSE NEGATIVE (NEGATIVE)
[2022-03-19 21:36] LABS: BILIRUBIN,URINE NEGATIVE (NEGATIVE); LEUKOCYTE ESTERASE ,URINE LARGE (NEGATIVE); NITRITE, URINE NEGATIVE (NEGATIVE); UROBILINOGEN,URINE 0.2 EU/dL (0.2)
[2022-03-19 21:38] LABS: BACTERIA,URINE 4+ /HPF (None Seen); SQUAMOUS EPITHELIAL CELL,UR Few /HPF (None Seen); WBC,URINE TOO NUMEROUS TO COUN /HPF (0-3)
[2022-03-19] MEDS ORDERED: METHOCARBAMOL (750MG) 750 MG TABLET GT PRN (23:30)
[2022-03-19] MEDS ORDERED: MAGNESIUM HYDROXIDE 30 ML UDC GT PRN (23:30)
[2022-03-19] MEDS ORDERED: MAG HYDROX/AL HYDROX/SIMETH 30 ML UDC GT PRN (23:30)
[2022-03-19] MEDS ORDERED: BISACODYL SUPP (10 MG) 10 MG/SUPP.RECT SUPP.RECT RC PRN (23:30)
[2022-03-19] MEDS ORDERED: ONDANSETRON 4 MG TAB.RAPDIS GT PRN (23:30)
[2022-03-20] VITALS (70 sets, daily range): BP systolic 72–144; BP diastolic 44–74
[2022-03-20] MEDS ORDERED: Z GUARD REMEDY 4 OZ OINT TP PRN
[2022-03-20] MEDS ORDERED: MAG HYDROX/AL HYDROX/SIMETH 30 ML UDC PO PRN
[2022-03-20] MEDS ORDERED: ONDANSETRON HCL/PF 4 MG/2 ML VIAL IVP PRN
[2022-03-20] MEDS ORDERED: MAGNESIUM HYDROXIDE 30 ML UDC PO PRN
[2022-03-20] MEDS ORDERED: IV NS 0.9% 1,000 ML IV PRN
[2022-03-20] MEDS ORDERED: ZOLPIDEM TARTRATE 5 MG TABLET PO PRN
[2022-03-20] MEDS ORDERED: PIPERACILLIN /TAZOBACTAM 3.375 G VIAL IV ONE (01:48)
[2022-03-20] MEDS: ACETAMINOPHEN 325 MG TABLET PO PRN (01:52)
[2022-03-20] MEDS: MIDODRINE HCL (5MG) 5 MG TABLET PO SCH ×4 (01:53→16:24)
[2022-03-20] MEDS ORDERED: PIPERACILLIN /TAZOBACTAM 3.375 G in IV D5W 50 ML IV ONE (02:00)
[2022-03-20] MEDS: ENOXAPARIN SODIUM 40 MG/0.4 ML DISP.SYRIN SQ SCH ×2 (02:05→22:16)
[2022-03-20] MEDS ORDERED: IV NS 0.9% 1,000 ML IV ONE (04:05)
[2022-03-20 05:36] LABS: ABG BASE EXCESS -1.7 mmol/L; ABG OXYGEN SATURATION 94.6 % (92.0-98.5); ABG PCO2 40.9 mmHg (35.0-45.0); ABG PH 7.375 (7.350-7.450); ABG PO2 74.2 mmHg (75.0-100.0); COHb 0.3 % (0.5-1.5); MetHb 0.2 % (0.0-1.5); O2Hb 94.1 % (94.0-97.0); SITE, ABG Right Radial
[2022-03-20] MEDS ORDERED: NOREPINEPHRINE 8MG/250ML RTU 250 ML IV ONE (06:03)
[2022-03-20] MEDS: NOREPINEPHRINE 8 MG in IV NS 0.9% 242 ML IV PRN (06:15)
[2022-03-20 06:25] LABS: BASOPHILS % (AUTO) 0.1 % (0.0-2.0); EOSINOPHILS % (AUTO) 0.3 % (0.0-6.0); HEMATOCRIT 26 % (39-51); HEMOGLOBIN 8.2 g/dL (13.5-17.5); MEAN CORPUSCULAR HGB CONC 31 g/dl (31.0-36.0); MEAN CORPUSCULAR VOLUME 89 fL (80-96); MONOCYTES # (AUTO) 1.8 K/uL (0.1-1.30); MONOCYTES % (AUTO) 7.7 % (2.0-12.0); NEUTROPHILS % (AUTO) 87.9 % (43.0-81.0); PLATELET COUNT (AUTO) 449 K/uL (150-450); RED BLOOD CELL COUNT(AUTO) 2.95 MIL/uL (4.5-6.0); WHITE BLOOD COUNT (AUTO) 23.8 K/uL (4.3-11.0)
[2022-03-20 06:48] LABS: THYROID STIMULATING HORMONE 0.349 uIU/mL (0.358-3.74)
[2022-03-20 07:01] LABS: CALCIUM, SERUM 8.1 mg/dL (8.5-10.1); CREATININE 0.9 mg/dL (0.6-1.3); MAGNESIUM 2.3 mg/dL (1.8-2.4); PHOSPHORUS 2.6 mg/dL (2.5-4.9); POTASSIUM 3.8 mmol/L (3.5-5.1)
[2022-03-20] MEDS ORDERED: PANTOPRAZOLE 40 MG VIAL IV SCH (09:00)
[2022-03-20] MEDS ORDERED: IV NS 0.9% 500 ML BAG IV ONE (09:00)
[2022-03-20] MEDS: MULTIPLE VIT (LYCOPENE/FA/MV,CA,IRON,MIN/LUT)1 TAB GT SCH (09:00)
[2022-03-20] MEDS: VANCOMYCIN 1 GM in IV D5W 250ml IV SCH ×2 (09:03→20:40)
[2022-03-20] MEDS: PROSTAT (PYXIS) 30 ML UDC GT SCH ×3 (09:05→16:25)
[2022-03-20] MEDS: GABAPENTIN 300 MG CAPSULE GT SCH ×3 (09:05→16:24)
[2022-03-20] MEDS: ASCORBIC ACID 500 MG TABLET GT SCH ×2 (09:05→16:24)
[2022-03-20] MEDS: ACIDOPHILUS/BULGARICUS 1 EACH TAB.CHEW GT SCH ×3 (09:05→16:24)
[2022-03-20] MEDS: CALCIUM CARBONATE 500 MG TAB.CHEW GT SCH ×3 (09:05→16:24)
[2022-03-20] MEDS: FAMOTIDINE (20 MG) 20 MG TABLET GT SCH ×2 (09:05→21:17)
[2022-03-20] MEDS: BACLOFEN (10 MG) 10 MG TABLET GT SCH ×4 (09:06→21:17)
[2022-03-20] MEDS: METHADONE HCL 10 MG TABLET GT SCH (09:06)
[2022-03-20] MEDS: CALCITRIOL 0.25 MCG CAPSULE PO SCH (09:06)
[2022-03-20] MEDS: ESCITALOPRAM OXALATE (10 MG) 10 MG TABLET GT SCH (09:06)
[2022-03-20] MEDS: HYDROCORTISONE SOD SUCCINATE 100 MG/2 ML VIAL IV SCH ×3 (10:45→21:16)
[2022-03-20] MEDS: IV NS 0.9% 1,000 ML IV PRN ×2 (11:31→22:58)
[2022-03-20] MEDS ORDERED: PIPERACILLIN /TAZOBACTAM 3.375 G in IV D5W 50 ML IV SCH (12:00)
[2022-03-20] MEDS: PIPERACILLIN /TAZOBACTAM 3.375 G in IV D5W 100 ML IV SCH ×2 (12:07→21:55)
[2022-03-20] MEDS: GLUCERNA 1.2 1,000 ML BOTTLE PEG SCH (16:52)
[2022-03-20] MEDS: IV NS 0.9% 250 ML IV PRN (21:00)
[2022-03-20] MEDS ORDERED: ENOXAPARIN SODIUM 40 MG/0.4 ML DISP.SYRIN SQ SCH (21:00)
[2022-03-20] MEDS: ATORVASTATIN 10 MG TABLET GT SCH (21:16)
[2022-03-20] MEDS: POLYETHYLENE GLYCOL 3350 17 GM POWD.PACK GT SCH (21:16)
[2022-03-20] MEDS: ZINC SULFATE 220 MG CAPSULE GT SCH (21:19)
[2022-03-21] VITALS (55 sets, daily range): BP systolic 87–138; BP diastolic 50–81
[2022-03-21 04:46] LABS: BASOPHILS % (AUTO) 0.1 % (0.0-2.0); HEMATOCRIT 28 % (39-51); LYMPHOCYTES # (AUTO) 0.6 K/uL (0.8-4.8); LYMPHOCYTES % (AUTO) 3.4 % (20.0-44.0); MEAN CORPUSCULAR HGB CONC 32 g/dl (31.0-36.0); MEAN CORPUSCULAR VOLUME 89 fL (80-96); MONOCYTES # (AUTO) 0.7 K/uL (0.1-1.30); MONOCYTES % (AUTO) 4.1 % (2.0-12.0); NEUTROPHILS # (AUTO) 16.6 K/uL (1.8-8.9); NEUTROPHILS % (AUTO) 92.4 % (43.0-81.0); PLATELET COUNT (AUTO) 444 K/uL (150-450); RED BLOOD CELL COUNT(AUTO) 3.19 MIL/uL (4.5-6.0); WHITE BLOOD COUNT (AUTO) 17.9 K/uL (4.3-11.0)
[2022-03-21] MEDS: PIPERACILLIN /TAZOBACTAM 3.375 G in IV D5W 100 ML IV SCH ×2 (05:01→13:18)
[2022-03-21] MEDS: HYDROCORTISONE SOD SUCCINATE 100 MG/2 ML VIAL IV SCH ×3 (05:01→20:42)
[2022-03-21 05:04] LABS: CALCIUM, SERUM 8.1 mg/dL (8.5-10.1); CREATININE 0.7 mg/dL (0.6-1.3); MAGNESIUM 2.2 mg/dL (1.8-2.4); POTASSIUM 3.6 mmol/L (3.5-5.1)
[2022-03-21] MEDS: NOREPINEPHRINE 8 MG in IV NS 0.9% 242 ML IV PRN (06:02)
[2022-03-21] MEDS: IV NS 0.9% 1,000 ML IV PRN ×2 (06:50→18:07)
[2022-03-21] MEDS: MULTIPLE VIT (LYCOPENE/FA/MV,CA,IRON,MIN/LUT)1 TAB GT SCH (09:53)
[2022-03-21] MEDS: CALCIUM CARBONATE 500 MG TAB.CHEW GT SCH ×3 (09:54→16:55)
[2022-03-21] MEDS: GABAPENTIN 300 MG CAPSULE GT SCH ×3 (09:54→16:55)
[2022-03-21] MEDS: FAMOTIDINE (20 MG) 20 MG TABLET GT SCH ×2 (09:54→21:31)
[2022-03-21] MEDS: CALCITRIOL 0.25 MCG CAPSULE PO SCH (09:54)
[2022-03-21] MEDS: MIDODRINE HCL (5MG) 5 MG TABLET PO SCH ×3 (09:54→16:55)
[2022-03-21] MEDS: BACLOFEN (10 MG) 10 MG TABLET GT SCH ×4 (09:54→21:32)
[2022-03-21] MEDS: METHADONE HCL 10 MG TABLET GT SCH (09:55)
[2022-03-21] MEDS: PANTOPRAZOLE 40 MG/PACK PACK GT SCH (09:55)
[2022-03-21] MEDS: ACIDOPHILUS/BULGARICUS 1 EACH TAB.CHEW GT SCH ×3 (09:55→16:55)
[2022-03-21] MEDS: ESCITALOPRAM OXALATE (10 MG) 10 MG TABLET GT SCH (09:55)
[2022-03-21] MEDS: ASCORBIC ACID 500 MG TABLET GT SCH ×2 (09:55→16:55)
[2022-03-21] MEDS: VANCOMYCIN 1 GM in IV D5W 250ml IV SCH ×2 (10:02→20:42)
[2022-03-21] MEDS: PROSTAT (PYXIS) 30 ML UDC GT SCH ×3 (10:15→16:56)
[2022-03-21] MEDS: IV NS 0.9% 250 ML IV PRN (12:32)
[2022-03-21] MEDS ORDERED: NEUTRA PHOS 1 POWD.PACKET NG ONE (16:00)
[2022-03-21] MEDS: GLUCERNA 1.2 1,000 ML BOTTLE PEG SCH (17:01)
[2022-03-21] MEDS: THERAHONEY GEL 1.5 OZ TUBE TP SCH (20:48)
[2022-03-21] MEDS: ZINC SULFATE 220 MG CAPSULE GT SCH (21:31)
[2022-03-21] MEDS: ATORVASTATIN 10 MG TABLET GT SCH (21:32)
[2022-03-21] MEDS: POLYETHYLENE GLYCOL 3350 17 GM POWD.PACK GT SCH (21:32)
[2022-03-21] MEDS: ENOXAPARIN SODIUM 40 MG/0.4 ML DISP.SYRIN SQ SCH (22:00)
[2022-03-21] MEDS: CEFEPIME 1 GM in IV D5W 50 ML IV SCH ×2 (22:00→23:43)
[2022-03-21] MEDS ORDERED: CEFEPIME 1 GM VIAL ONE (22:58)
[2022-03-22] VITALS (25 sets, daily range): BP systolic 113–138; BP diastolic 58–84
[2022-03-22] MEDS: ACETAMINOPHEN 325 MG TABLET PO PRN (03:58)
[2022-03-22 04:41] LABS: HEMATOCRIT 27 % (39-51); HEMOGLOBIN 8.5 g/dL (13.5-17.5); LYMPHOCYTES # (AUTO) 0.6 K/uL (0.8-4.8); LYMPHOCYTES % (AUTO) 6.1 % (20.0-44.0); MEAN CORPUSCULAR HGB CONC 32 g/dl (31.0-36.0); MEAN CORPUSCULAR VOLUME 89 fL (80-96); MONOCYTES # (AUTO) 0.4 K/uL (0.1-1.30); MONOCYTES % (AUTO) 3.8 % (2.0-12.0); NEUTROPHILS % (AUTO) 90.1 % (43.0-81.0); PLATELET COUNT (AUTO) 408 K/uL (150-450); RED BLOOD CELL COUNT(AUTO) 3.02 MIL/uL (4.5-6.0)
[2022-03-22 04:57] LABS: CALCIUM, SERUM 8.1 mg/dL (8.5-10.1); CREATININE 0.7 mg/dL (0.6-1.3); MAGNESIUM 2.2 mg/dL (1.8-2.4); PHOSPHORUS 2.5 mg/dL (2.5-4.9); POTASSIUM 3.8 mmol/L (3.5-5.1)
[2022-03-22] MEDS ORDERED: CEFEPIME 1 GM VIAL ONE (05:13)
[2022-03-22] MEDS: CEFEPIME 1 GM in IV D5W 50 ML IV SCH (05:21)
[2022-03-22] MEDS: HYDROCORTISONE SOD SUCCINATE 100 MG/2 ML VIAL IV SCH ×3 (05:22→21:46)
[2022-03-22] MEDS: IV NS 0.9% 1,000 ML IV PRN ×2 (06:54→22:23)
[2022-03-22] MEDS: VANCOMYCIN 1 GM in IV D5W 250ml IV SCH ×2 (09:35→21:46)
[2022-03-22] MEDS: FAMOTIDINE (20 MG) 20 MG TABLET GT SCH ×2 (09:36→21:39)
[2022-03-22] MEDS: PANTOPRAZOLE 40 MG/PACK PACK GT SCH (09:36)
[2022-03-22] MEDS: MIDODRINE HCL (5MG) 5 MG TABLET PO SCH ×3 (09:36→17:35)
[2022-03-22] MEDS: GABAPENTIN 300 MG CAPSULE GT SCH ×3 (09:36→17:35)
[2022-03-22] MEDS: CALCITRIOL 0.25 MCG CAPSULE PO SCH (09:37)
[2022-03-22] MEDS: BACLOFEN (10 MG) 10 MG TABLET GT SCH ×4 (09:37→21:39)
[2022-03-22] MEDS: METHADONE HCL 10 MG TABLET GT SCH (09:38)
[2022-03-22] MEDS: ESCITALOPRAM OXALATE (10 MG) 10 MG TABLET GT SCH (09:38)
[2022-03-22] MEDS: PROSTAT (PYXIS) 30 ML UDC GT SCH ×3 (09:38→17:36)
[2022-03-22] MEDS: CALCIUM CARBONATE 500 MG TAB.CHEW GT SCH ×3 (09:38→17:35)
[2022-03-22] MEDS: ASCORBIC ACID 500 MG TABLET GT SCH ×2 (09:38→17:35)
[2022-03-22] MEDS: THERAHONEY GEL 1.5 OZ TUBE TP SCH (09:39)
[2022-03-22] MEDS: ACIDOPHILUS/BULGARICUS 1 EACH TAB.CHEW GT SCH ×3 (09:40→17:35)
[2022-03-22] MEDS: MULTIPLE VIT (LYCOPENE/FA/MV,CA,IRON,MIN/LUT)1 TAB GT SCH (09:40)
[2022-03-22] MEDS: CEFEPIME 2 GM in IV D5W 100 ML IV SCH ×2 (12:46→21:46)
[2022-03-22] MEDS: POLYETHYLENE GLYCOL 3350 17 GM POWD.PACK GT SCH (21:39)
[2022-03-22] MEDS: ATORVASTATIN 10 MG TABLET GT SCH (21:39)
[2022-03-22] MEDS: ZINC SULFATE 220 MG CAPSULE GT SCH (21:39)
[2022-03-22] MEDS: ENOXAPARIN SODIUM 40 MG/0.4 ML DISP.SYRIN SQ SCH (21:40)
[2022-03-22] MEDS: IV NS 0.9% 250 ML IV PRN (22:22)
[2022-03-23] VITALS: BP 132/73
[2022-03-23 04:00] VITALS: BP 111/61
[2022-03-23] MEDS: ACETAMINOPHEN 325 MG TABLET PO PRN (04:00)
[2022-03-23] MEDS: CEFEPIME 2 GM in IV D5W 100 ML IV SCH ×3 (04:29→20:05)
[2022-03-23 06:50] LABS: BASOPHILS % (AUTO) 0.1 % (0.0-2.0); HEMATOCRIT 30 % (39-51); HEMOGLOBIN 9.2 g/dL (13.5-17.5); LYMPHOCYTES # (AUTO) 0.9 K/uL (0.8-4.8); LYMPHOCYTES % (AUTO) 10.1 % (20.0-44.0); MEAN CORPUSCULAR HGB CONC 31 g/dl (31.0-36.0); MEAN CORPUSCULAR VOLUME 91 fL (80-96); MONOCYTES # (AUTO) 0.7 K/uL (0.1-1.30); MONOCYTES % (AUTO) 7.4 % (2.0-12.0); NEUTROPHILS # (AUTO) 7.3 K/uL (1.8-8.9); NEUTROPHILS % (AUTO) 82.4 % (43.0-81.0); PLATELET COUNT (AUTO) 406 K/uL (150-450); RED BLOOD CELL COUNT(AUTO) 3.31 MIL/uL (4.5-6.0); WHITE BLOOD COUNT (AUTO) 8.8 K/uL (4.3-11.0)
[2022-03-23 07:08] LABS: CALCIUM, SERUM 7.8 mg/dL (8.5-10.1); CREATININE 0.9 mg/dL (0.6-1.3); MAGNESIUM 2.1 mg/dL (1.8-2.4); PHOSPHORUS 2.6 mg/dL (2.5-4.9); POTASSIUM 3.5 mmol/L (3.5-5.1)
[2022-03-23 08:00] VITALS: BP 106/58
[2022-03-23] MEDS: BACLOFEN (10 MG) 10 MG TABLET GT SCH ×4 (08:19→20:05)
[2022-03-23] MEDS: ESCITALOPRAM OXALATE (10 MG) 10 MG TABLET GT SCH (08:20)
[2022-03-23] MEDS: ACIDOPHILUS/BULGARICUS 1 EACH TAB.CHEW GT SCH ×3 (08:20→16:09)
[2022-03-23] MEDS: FAMOTIDINE (20 MG) 20 MG TABLET GT SCH ×2 (08:20→20:05)
[2022-03-23] MEDS: METHADONE HCL 10 MG TABLET GT SCH (08:20)
[2022-03-23] MEDS: PANTOPRAZOLE 40 MG/PACK PACK GT SCH (08:20)
[2022-03-23] MEDS: CALCITRIOL 0.25 MCG CAPSULE PO SCH (08:20)
[2022-03-23] MEDS: MULTIPLE VIT (LYCOPENE/FA/MV,CA,IRON,MIN/LUT)1 TAB GT SCH (08:20)
[2022-03-23] MEDS: CALCIUM CARBONATE 500 MG TAB.CHEW GT SCH ×3 (08:20→16:09)
[2022-03-23] MEDS: ASCORBIC ACID 500 MG TABLET GT SCH ×2 (08:20→16:09)
[2022-03-23] MEDS: MIDODRINE HCL (5MG) 5 MG TABLET PO SCH ×3 (08:21→16:09)
[2022-03-23] MEDS: GABAPENTIN 300 MG CAPSULE GT SCH ×3 (08:23→16:09)
[2022-03-23] MEDS: THERAHONEY GEL 1.5 OZ TUBE TP SCH (08:24)
[2022-03-23] MEDS: PROSTAT (PYXIS) 30 ML UDC GT SCH ×3 (08:24→16:19)
[2022-03-23] MEDS: VANCOMYCIN 1 GM in IV D5W 250ml IV SCH ×2 (08:25→21:30)
[2022-03-23] MEDS: HYDROCORTISONE SOD SUCCINATE 100 MG/2 ML VIAL IV SCH ×2 (08:26→10:25)
[2022-03-23] MEDS: IV NS 0.9% 1,000 ML IV PRN ×2 (09:15→22:02)
[2022-03-23] MEDS: ACETYLCYSTEINE 10% SOLN 400 MG/4 ML VIAL NEB SCH ×3 (10:34→22:40)
[2022-03-23] MEDS: HYDROCODONE/APAP 5/325MG TABLET GT PRN ×2 (11:51→20:19)
[2022-03-23 12:00] VITALS: BP 118/65
[2022-03-23] MEDS: GLUCERNA 1.2 1,000 ML BOTTLE PEG SCH (12:33)
[2022-03-23 16:00] VITALS: BP 121/73
[2022-03-23 20:00] VITALS: BP 122/75
[2022-03-23] MEDS: POLYETHYLENE GLYCOL 3350 17 GM POWD.PACK GT SCH (22:01)
[2022-03-23] MEDS: ATORVASTATIN 10 MG TABLET GT SCH (22:01)
[2022-03-23] MEDS: ZINC SULFATE 220 MG CAPSULE GT SCH (22:01)
[2022-03-23] MEDS: ENOXAPARIN SODIUM 40 MG/0.4 ML DISP.SYRIN SQ SCH (22:02)
[2022-03-23] MEDS: ALBUTEROL HALF STRENGTH 1.25 MG/3 ML VIAL.NEB IH PRN (22:40)
[2022-03-24] VITALS: BP 119/88
[2022-03-24 04:00] VITALS: BP 125/88
[2022-03-24] MEDS: CEFEPIME 2 GM in IV D5W 100 ML IV SCH ×3 (04:10→20:12)
[2022-03-24] MEDS: GLUCERNA 1.2 1,000 ML BOTTLE PEG SCH (05:28)
[2022-03-24] MEDS: ACETYLCYSTEINE 10% SOLN 400 MG/4 ML VIAL NEB SCH ×3 (07:35→23:16)
[2022-03-24 08:00] VITALS: BP 114/62
[2022-03-24 08:33] LABS: BASOPHILS % (AUTO) 0.4 % (0.0-2.0); EOSINOPHILS % (AUTO) 0.4 % (0.0-6.0); HEMATOCRIT 30 % (39-51); HEMOGLOBIN 9.3 g/dL (13.5-17.5); LYMPHOCYTES # (AUTO) 0.6 K/uL (0.8-4.8); LYMPHOCYTES % (AUTO) 5.7 % (20.0-44.0); MEAN CORPUSCULAR HGB CONC 31 g/dl (31.0-36.0); MEAN CORPUSCULAR VOLUME 89 fL (80-96); MONOCYTES % (AUTO) 18.1 % (2.0-12.0); NEUTROPHILS # (AUTO) 8.5 K/uL (1.8-8.9); NEUTROPHILS % (AUTO) 75.4 % (43.0-81.0); PLATELET COUNT (AUTO) 426 K/uL (150-450); RED BLOOD CELL COUNT(AUTO) 3.35 MIL/uL (4.5-6.0); WHITE BLOOD COUNT (AUTO) 11.2 K/uL (4.3-11.0)
[2022-03-24] MEDS: MULTIPLE VIT (LYCOPENE/FA/MV,CA,IRON,MIN/LUT)1 TAB GT SCH (08:43)
[2022-03-24] MEDS: ACIDOPHILUS/BULGARICUS 1 EACH TAB.CHEW GT SCH ×3 (08:43→16:35)
[2022-03-24] MEDS: BACLOFEN (10 MG) 10 MG TABLET GT SCH ×4 (08:43→20:04)
[2022-03-24] MEDS: ESCITALOPRAM OXALATE (10 MG) 10 MG TABLET GT SCH (08:43)
[2022-03-24] MEDS: ASCORBIC ACID 500 MG TABLET GT SCH ×2 (08:44→16:36)
[2022-03-24] MEDS: CALCITRIOL 0.25 MCG CAPSULE PO SCH (08:44)
[2022-03-24] MEDS: GABAPENTIN 300 MG CAPSULE GT SCH ×3 (08:44→16:36)
[2022-03-24] MEDS: MIDODRINE HCL (5MG) 5 MG TABLET PO SCH ×3 (08:44→16:36)
[2022-03-24] MEDS: PANTOPRAZOLE 40 MG/PACK PACK GT SCH (08:44)
[2022-03-24] MEDS: FAMOTIDINE (20 MG) 20 MG TABLET GT SCH ×2 (08:44→20:04)
[2022-03-24] MEDS: CALCIUM CARBONATE 500 MG TAB.CHEW GT SCH ×3 (08:44→16:36)
[2022-03-24] MEDS: PROSTAT (PYXIS) 30 ML UDC GT SCH ×3 (08:48→16:43)
[2022-03-24 08:52] LABS: CALCIUM, SERUM 7.6 mg/dL (8.5-10.1); CREATININE 0.7 mg/dL (0.6-1.3); MAGNESIUM 1.9 mg/dL (1.8-2.4); PHOSPHORUS 2.8 mg/dL (2.5-4.9); POTASSIUM 3.1 mmol/L (3.5-5.1)
[2022-03-24] MEDS: VANCOMYCIN 1 GM in IV D5W 250ml IV SCH ×2 (09:00→09:50)
[2022-03-24] MEDS: METHADONE HCL 10 MG TABLET GT SCH (09:36)
[2022-03-24] MEDS: HYDROCORTISONE SOD SUCCINATE 100 MG/2 ML VIAL IV SCH (09:59)
[2022-03-24 12:00] VITALS: BP 120/89
[2022-03-24 13:00] LABS: BASOPHILS % (MANUAL) 0 % (0.0-2.0); EOSINOPHILS % (MANUAL) 0 % (0-4); LYMPHOCYTES % (MANUAL) 8 % (16-48); MONOCYTES % (MANUAL) 15 % (0-11.0); NEUTROPHILS % (MANUAL) 77 (42-76)
[2022-03-24] MEDS: THERAHONEY GEL 1.5 OZ TUBE TP SCH (13:54)
[2022-03-24] MEDS: ALBUTEROL HALF STRENGTH 1.25 MG/3 ML VIAL.NEB IH PRN ×2 (14:40→23:16)
[2022-03-24] MEDS: IPRATROPIUM NEB FS 0.5 MG/2.5 ML AMPUL.NEB IH PRN (14:41)
[2022-03-24 16:00] VITALS: BP 115/62
[2022-03-24 20:00] VITALS: BP 105/57
[2022-03-24] MEDS ORDERED: POTASSIUM CHLORIDE 20 MEQ TAB.PRT.SR PO ONE (20:00)
[2022-03-24] MEDS: HYDROCODONE/APAP 5/325MG TABLET GT PRN (20:18)
[2022-03-24] MEDS: IV NS 0.9% 1,000 ML IV PRN (21:13)
[2022-03-24] MEDS: VANCOMYCIN 0.75 GM in IV D5W 250 ML IV SCH (21:14)
[2022-03-24] MEDS: POLYETHYLENE GLYCOL 3350 17 GM POWD.PACK GT SCH (22:25)
[2022-03-24] MEDS: ZINC SULFATE 220 MG CAPSULE GT SCH (22:26)
[2022-03-24] MEDS: ATORVASTATIN 10 MG TABLET GT SCH (22:26)
[2022-03-24] MEDS: ENOXAPARIN SODIUM 40 MG/0.4 ML DISP.SYRIN SQ SCH (22:27)
[2022-03-25] VITALS: BP 111/69
[2022-03-25] MEDS: CEFEPIME 2 GM in IV D5W 100 ML IV SCH ×3 (04:28→20:24)
[2022-03-25] MEDS: HYDROCODONE/APAP 5/325MG TABLET GT PRN (05:54)
[2022-03-25 06:00] VITALS: BP 137/70
[2022-03-25] MEDS: ACETYLCYSTEINE 10% SOLN 400 MG/4 ML VIAL NEB SCH ×3 (07:17→23:35)
[2022-03-25 07:22] LABS: BASOPHILS % (AUTO) 0.2 % (0.0-2.0); EOSINOPHILS % (AUTO) 2.3 % (0.0-6.0); HEMATOCRIT 30 % (39-51); HEMOGLOBIN 9.3 g/dL (13.5-17.5); LYMPHOCYTES # (AUTO) 1.1 K/uL (0.8-4.8); MEAN CORPUSCULAR HGB CONC 32 g/dl (31.0-36.0); MEAN CORPUSCULAR VOLUME 89 fL (80-96); MONOCYTES # (AUTO) 0.8 K/uL (0.1-1.30); MONOCYTES % (AUTO) 9.6 % (2.0-12.0); NEUTROPHILS # (AUTO) 6.6 K/uL (1.8-8.9); NEUTROPHILS % (AUTO) 75.9 % (43.0-81.0); PLATELET COUNT (AUTO) 421 K/uL (150-450); RED BLOOD CELL COUNT(AUTO) 3.31 MIL/uL (4.5-6.0); WHITE BLOOD COUNT (AUTO) 8.8 K/uL (4.3-11.0)
[2022-03-25 07:23] LABS: CALCIUM, SERUM 7.7 mg/dL (8.5-10.1); CREATININE 0.6 mg/dL (0.6-1.3); MAGNESIUM 1.9 mg/dL (1.8-2.4); PHOSPHORUS 3.3 mg/dL (2.5-4.9); POTASSIUM 3.1 mmol/L (3.5-5.1)
[2022-03-25 08:00] VITALS: BP 112/56
[2022-03-25] MEDS: HYDROCORTISONE SOD SUCCINATE 100 MG/2 ML VIAL IV SCH (08:30)
[2022-03-25] MEDS: GABAPENTIN 300 MG CAPSULE GT SCH ×3 (08:31→16:09)
[2022-03-25] MEDS: ACIDOPHILUS/BULGARICUS 1 EACH TAB.CHEW GT SCH ×3 (08:31→16:09)
[2022-03-25] MEDS: METHADONE HCL 10 MG TABLET GT SCH (08:31)
[2022-03-25] MEDS: MULTIPLE VIT (LYCOPENE/FA/MV,CA,IRON,MIN/LUT)1 TAB GT SCH (08:32)
[2022-03-25] MEDS: ESCITALOPRAM OXALATE (10 MG) 10 MG TABLET GT SCH (08:32)
[2022-03-25] MEDS: BACLOFEN (10 MG) 10 MG TABLET GT SCH ×4 (08:32→20:25)
[2022-03-25] MEDS: CALCITRIOL 0.25 MCG CAPSULE PO SCH (08:32)
[2022-03-25] MEDS: ASCORBIC ACID 500 MG TABLET GT SCH ×2 (08:32→16:09)
[2022-03-25] MEDS: FAMOTIDINE (20 MG) 20 MG TABLET GT SCH ×2 (08:32→20:24)
[2022-03-25] MEDS: CALCIUM CARBONATE 500 MG TAB.CHEW GT SCH ×3 (08:32→16:09)
[2022-03-25] MEDS: MIDODRINE HCL (5MG) 5 MG TABLET PO SCH ×3 (08:32→16:09)
[2022-03-25] MEDS: PROSTAT (PYXIS) 30 ML UDC GT SCH ×3 (08:34→16:10)
[2022-03-25] MEDS: PANTOPRAZOLE 40 MG/PACK PACK GT SCH (08:35)
[2022-03-25] MEDS: THERAHONEY GEL 1.5 OZ TUBE TP SCH (08:35)
[2022-03-25] MEDS: VANCOMYCIN 0.75 GM in IV D5W 250 ML IV SCH ×2 (08:38→21:03)
[2022-03-25] MEDS ORDERED: POTASSIUM CHLORIDE 20 MEQ POWDER PACKET GT ONE (09:00)
[2022-03-25 12:00] VITALS: BP 124/69
[2022-03-25] MEDS: GLUCERNA 1.2 1,000 ML BOTTLE PEG SCH (12:18)
[2022-03-25] MEDS: IV NS 0.9% 1,000 ML IV PRN (13:29)
[2022-03-25 16:00] VITALS: BP 115/69
[2022-03-25 20:00] VITALS: BP 118/58
[2022-03-25] MEDS: POLYETHYLENE GLYCOL 3350 17 GM POWD.PACK GT SCH (21:11)
[2022-03-25] MEDS: ZINC SULFATE 220 MG CAPSULE GT SCH (21:12)
[2022-03-25] MEDS: ATORVASTATIN 10 MG TABLET GT SCH (21:12)
[2022-03-25] MEDS: ENOXAPARIN SODIUM 40 MG/0.4 ML DISP.SYRIN SQ SCH (21:14)
[2022-03-26] VITALS: BP 126/63
[2022-03-26 04:00] VITALS: BP 130/64
[2022-03-26] MEDS: CEFEPIME 2 GM in IV D5W 100 ML IV SCH ×3 (04:37→21:29)
[2022-03-26 07:00] LABS: CALCIUM, SERUM 8.2 mg/dL (8.5-10.1); CREATININE 0.6 mg/dL (0.6-1.3); POTASSIUM 3.8 mmol/L (3.5-5.1)
[2022-03-26 08:00] VITALS: BP 119/67
[2022-03-26] MEDS: ACETYLCYSTEINE 10% SOLN 400 MG/4 ML VIAL NEB SCH ×2 (08:09→15:48)
[2022-03-26 08:18] LABS: BASOPHILS % (AUTO) 0.2 % (0.0-2.0); EOSINOPHILS % (AUTO) 3.2 % (0.0-6.0); HEMATOCRIT 34 % (39-51); HEMOGLOBIN 10.5 g/dL (13.5-17.5); LYMPHOCYTES # (AUTO) 1.3 K/uL (0.8-4.8); LYMPHOCYTES % (AUTO) 13.1 % (20.0-44.0); MEAN CORPUSCULAR HGB CONC 32 g/dl (31.0-36.0); MEAN CORPUSCULAR VOLUME 89 fL (80-96); MONOCYTES % (AUTO) 9.8 % (2.0-12.0); NEUTROPHILS # (AUTO) 7.6 K/uL (1.8-8.9); NEUTROPHILS % (AUTO) 73.7 % (43.0-81.0); PLATELET COUNT (AUTO) 463 K/uL (150-450); RED BLOOD CELL COUNT(AUTO) 3.78 MIL/uL (4.5-6.0); WHITE BLOOD COUNT (AUTO) 10.3 K/uL (4.3-11.0)
[2022-03-26] MEDS: ESCITALOPRAM OXALATE (10 MG) 10 MG TABLET GT SCH (08:57)
[2022-03-26] MEDS: ACIDOPHILUS/BULGARICUS 1 EACH TAB.CHEW GT SCH ×3 (08:57→17:05)
[2022-03-26] MEDS: ASCORBIC ACID 500 MG TABLET GT SCH ×2 (08:57→17:05)
[2022-03-26] MEDS: PANTOPRAZOLE 40 MG/PACK PACK GT SCH (08:57)
[2022-03-26] MEDS: FAMOTIDINE (20 MG) 20 MG TABLET GT SCH ×2 (08:57→21:29)
[2022-03-26] MEDS: GABAPENTIN 300 MG CAPSULE GT SCH ×3 (08:57→17:05)
[2022-03-26] MEDS: MULTIPLE VIT (LYCOPENE/FA/MV,CA,IRON,MIN/LUT)1 TAB GT SCH (08:57)
[2022-03-26] MEDS: BACLOFEN (10 MG) 10 MG TABLET GT SCH ×4 (08:57→21:28)
[2022-03-26] MEDS: METHADONE HCL 10 MG TABLET GT SCH (08:57)
[2022-03-26] MEDS: CALCIUM CARBONATE 500 MG TAB.CHEW GT SCH ×3 (08:57→17:05)
[2022-03-26] MEDS: CALCITRIOL 0.25 MCG CAPSULE PO SCH (08:57)
[2022-03-26] MEDS: MIDODRINE HCL (5MG) 5 MG TABLET PO SCH ×3 (08:57→17:05)
[2022-03-26] MEDS: THERAHONEY GEL 1.5 OZ TUBE TP SCH (09:06)
[2022-03-26] MEDS: PROSTAT (PYXIS) 30 ML UDC GT SCH ×3 (09:06→17:05)
[2022-03-26] MEDS: VANCOMYCIN 0.75 GM in IV D5W 250 ML IV SCH (09:06)
[2022-03-26] MEDS: GLUCERNA 1.2 1,000 ML BOTTLE PEG SCH (09:08)
[2022-03-26 12:00] VITALS: BP 112/66
[2022-03-26] MEDS: HYDROCODONE/APAP 5/325MG TABLET GT PRN (14:59)
[2022-03-26 16:00] VITALS: BP 110/62
[2022-03-26 20:00] VITALS: BP 123/69
[2022-03-26] MEDS: VANCOMYCIN 1 GM in IV D5W 250 ML IV SCH (20:03)
[2022-03-26] MEDS: ATORVASTATIN 10 MG TABLET GT SCH (21:28)
[2022-03-26] MEDS: POLYETHYLENE GLYCOL 3350 17 GM POWD.PACK GT SCH (21:28)
[2022-03-26] MEDS: ZINC SULFATE 220 MG CAPSULE GT SCH (21:28)
[2022-03-26] MEDS: ENOXAPARIN SODIUM 40 MG/0.4 ML DISP.SYRIN SQ SCH (21:31)
[2022-03-27] VITALS (8 sets, daily range): BP systolic 122–161; BP diastolic 65–81
[2022-03-27] MEDS: IPRATROPIUM NEB FS 0.5 MG/2.5 ML AMPUL.NEB IH PRN (02:15)
[2022-03-27] MEDS: ACETYLCYSTEINE 10% SOLN 400 MG/4 ML VIAL NEB SCH ×4 (02:15→23:00)
[2022-03-27] MEDS: ALBUTEROL HALF STRENGTH 1.25 MG/3 ML VIAL.NEB IH PRN ×2 (02:16→23:00)
[2022-03-27] MEDS: CEFEPIME 2 GM in IV D5W 100 ML IV SCH ×3 (04:29→21:17)
[2022-03-27] MEDS ORDERED: ACETAMINOPHEN 650 MG/20.3 ML UDC GT PRN (05:00)
[2022-03-27 07:31] LABS: CALCIUM, SERUM 8.5 mg/dL (8.5-10.1); CREATININE 0.7 mg/dL (0.6-1.3); POTASSIUM 4.2 mmol/L (3.5-5.1)
[2022-03-27] MEDS: THERAHONEY GEL 1.5 OZ TUBE TP SCH (08:32)
[2022-03-27] MEDS: ESCITALOPRAM OXALATE (10 MG) 10 MG TABLET GT SCH (08:33)
[2022-03-27] MEDS: BACLOFEN (10 MG) 10 MG TABLET GT SCH ×4 (08:33→21:54)
[2022-03-27] MEDS: MULTIPLE VIT (LYCOPENE/FA/MV,CA,IRON,MIN/LUT)1 TAB GT SCH (08:33)
[2022-03-27] MEDS: CALCIUM CARBONATE 500 MG TAB.CHEW GT SCH ×3 (08:33→16:16)
[2022-03-27] MEDS: ASCORBIC ACID 500 MG TABLET GT SCH ×2 (08:33→16:16)
[2022-03-27] MEDS: PANTOPRAZOLE 40 MG/PACK PACK GT SCH (08:33)
[2022-03-27] MEDS: ACIDOPHILUS/BULGARICUS 1 EACH TAB.CHEW GT SCH ×3 (08:33→16:17)
[2022-03-27] MEDS: FAMOTIDINE (20 MG) 20 MG TABLET GT SCH ×2 (08:33→21:54)
[2022-03-27] MEDS: GABAPENTIN 300 MG CAPSULE GT SCH ×3 (08:34→16:16)
[2022-03-27] MEDS: METHADONE HCL 10 MG TABLET GT SCH (08:34)
[2022-03-27] MEDS: PROSTAT (PYXIS) 30 ML UDC GT SCH ×3 (08:56→16:17)
[2022-03-27] MEDS: MIDODRINE HCL (5MG) 5 MG TABLET PEG SCH ×3 (09:00→17:40)
[2022-03-27] MEDS ORDERED: CALCITRIOL 0.25 MCG CAPSULE GT SCH ×2 (09:00)
[2022-03-27] MEDS: VANCOMYCIN 1 GM in IV D5W 250 ML IV SCH ×2 (09:06→22:19)
[2022-03-27] MEDS: GLUCERNA 1.2 1,000 ML BOTTLE PEG SCH (15:35)
[2022-03-27] MEDS: POLYETHYLENE GLYCOL 3350 17 GM POWD.PACK GT SCH (21:54)
[2022-03-27] MEDS: ZINC SULFATE 220 MG CAPSULE GT SCH (21:54)
[2022-03-27] MEDS: ATORVASTATIN 10 MG TABLET GT SCH (21:54)
[2022-03-27] MEDS: HYDROCODONE/APAP 5/325MG TABLET GT PRN (21:55)
[2022-03-28] VITALS (7 sets, daily range): BP systolic 110–131; BP diastolic 62–70
[2022-03-28] MEDS: CEFEPIME 2 GM in IV D5W 100 ML IV SCH ×2 (05:02→13:34)
[2022-03-28] MEDS: ACETYLCYSTEINE 10% SOLN 400 MG/4 ML VIAL NEB SCH ×2 (07:19→16:00)
[2022-03-28 08:15] LABS: CALCIUM, SERUM 8.7 mg/dL (8.5-10.1); CREATININE 0.7 mg/dL (0.6-1.3); POTASSIUM 4.8 mmol/L (3.5-5.1)
[2022-03-28] MEDS: VANCOMYCIN 1 GM in IV D5W 250 ML IV SCH (08:18)
[2022-03-28] MEDS: PANTOPRAZOLE 40 MG/PACK PACK GT SCH (08:44)
[2022-03-28] MEDS: ESCITALOPRAM OXALATE (10 MG) 10 MG TABLET GT SCH (08:44)
[2022-03-28] MEDS: FAMOTIDINE (20 MG) 20 MG TABLET GT SCH (08:44)
[2022-03-28] MEDS: BACLOFEN (10 MG) 10 MG TABLET GT SCH ×2 (08:44→13:30)
[2022-03-28] MEDS: ASCORBIC ACID 500 MG TABLET GT SCH (08:44)
[2022-03-28] MEDS: ACIDOPHILUS/BULGARICUS 1 EACH TAB.CHEW GT SCH ×2 (08:44→13:30)
[2022-03-28] MEDS: MIDODRINE HCL (5MG) 5 MG TABLET PEG SCH ×2 (08:44→13:00)
[2022-03-28] MEDS: GABAPENTIN 300 MG CAPSULE GT SCH ×2 (08:44→13:30)
[2022-03-28] MEDS: METHADONE HCL 10 MG TABLET GT SCH (08:45)
[2022-03-28] MEDS: CALCIUM CARBONATE 500 MG TAB.CHEW GT SCH ×2 (08:45→13:30)
[2022-03-28] MEDS: MULTIPLE VIT (LYCOPENE/FA/MV,CA,IRON,MIN/LUT)1 TAB GT SCH (08:45)
[2022-03-28] MEDS: PROSTAT (PYXIS) 30 ML UDC GT SCH ×2 (08:49→13:31)
[2022-03-28] MEDS: THERAHONEY GEL 1.5 OZ TUBE TP SCH (09:37)
[2022-03-28] MEDS ORDERED: VANC1FRO2 IV (11:44)
[2022-03-28] MEDS ORDERED: CEFE2FRO IV (11:44)
[2022-03-28] MEDS ORDERED: PANT40SU2 GT (17:36)
[2022-03-28] MEDS ORDERED: ACET100V5 NEB (17:36)
[2022-03-28] MEDS ORDERED: MIDO5TAB4 GT (17:36)
[2022-03-28] MEDS ORDERED: THERAHONEY TD (17:36)
== END 2022-03-28 17:00 | DRG 853 ==
LOC: ER 20:12 → TELE1 23:37 → TELE-TD 03-20 01:10 → ICU 03-20 06:01 → TELE1 03-22 18:27
PROVIDERS: ADMIT Nurse Practitioner Acute Care; ATTEND Internal Medicine
PROC: 5A1955Z Respiratory Ventilation, Greater than 96 Consecutive Hours (ICD-10-PCS; principal; 2022-03-19)
PROC: 05HD33Z Insertion of Infusion Device into Right Cephalic Vein, Percutaneous Approach (ICD-10-PCS; 2022-03-20)
PROC: 0KBN0ZZ Excision of Right Hip Muscle, Open Approach (ICD-10-PCS; 2022-03-23)
PROC: 0KBP0ZZ Excision of Left Hip Muscle, Open Approach (ICD-10-PCS; 2022-03-23)
PROC: 0W9B3ZX Drainage of Left Pleural Cavity, Percutaneous Approach, Diagnostic (ICD-10-PCS; 2022-03-25)
DX: A41.89 Other specified sepsis (principal); G93.41 Metabolic encephalopathy; L89.324 Pressure ulcer of left buttock, stage 4; L89.314 Pressure ulcer of right buttock, stage 4; L89.154 Pressure ulcer of sacral region, stage 4; N17.0 Acute kidney failure with tubular necrosis; J96.21 Acute and chronic respiratory failure with hypoxia; R53.2 Functional quadriplegia; R65.21 Severe sepsis with septic shock; R57.1 Hypovolemic shock; J18.9 Pneumonia, unspecified organism; J95.851 Ventilator associated pneumonia; Z99.11 Dependence on respirator [ventilator] status; J44.0 Chronic obstructive pulmonary disease with (acute) lower respiratory infection; J90 Pleural effusion, not elsewhere classified; N39.0 Urinary tract infection, site not specified; J98.11 Atelectasis; Z16.35 Resistance to multiple antimicrobial drugs; G35 Multiple sclerosis; G40.909 Epilepsy, unspecified, not intractable, without status epilepticus; Z20.822 Contact with and (suspected) exposure to COVID-19; Z93.0 Tracheostomy status; Z93.1 Gastrostomy status; R13.10 Dysphagia, unspecified; Z93.6 Other artificial openings of urinary tract status; N13.9 Obstructive and reflux uropathy, unspecified; E78.5 Hyperlipidemia, unspecified; Y84.8 Other medical procedures as the cause of abnormal reaction of the patient, or of later complication, without mention of misadventure at the time of the procedure; Y92.129 Unspecified place in nursing home as the place of occurrence of the external cause; Y95 Nosocomial condition; Z87.19 Personal history of other diseases of the digestive system; Z98.890 Other specified postprocedural states; Z88.0 Allergy status to penicillin; Z93.3 Colostomy status; I25.2 Old myocardial infarction; Z79.51 Long term (current) use of inhaled steroids; Z79.01 Long term (current) use of anticoagulants; Z79.899 Other long term (current) drug therapy; Z87.442 Personal history of urinary calculi; Z87.440 Personal history of urinary (tract) infections; N20.0 Calculus of kidney; K21.9 Gastro-esophageal reflux disease without esophagitis; L30.9 Dermatitis, unspecified; D64.9 Anemia, unspecified; G89.4 Chronic pain syndrome; I10 Essential (primary) hypertension; B96.5 Pseudomonas (aeruginosa) (mallei) (pseudomallei) as the cause of diseases classified elsewhere; E86.0 Dehydration; C44.721 Squamous cell carcinoma of skin of unspecified lower limb, including hip; B96.89 Other specified bacterial agents as the cause of diseases classified elsewhere; L30.4 Erythema intertrigo; L57.0 Actinic keratosis; Z85.828 Personal history of other malignant neoplasm of skin; B96.20 Unspecified Escherichia coli [E. coli] as the cause of diseases classified elsewhere
CPT/HCPCS: 31720; 36410; 36415; 36600; 71045-TC; 71250-TC; 80048-TC; 80061-TC; 80076-TC; 80202-TC; 81001; 82803-TC; 83540-TC; 83605-TC; 83735-TC; 84100-TC; 84443-TC; 84484-TC; 85025-TC; 85730-TC; 87040-TC; 87081-TC; 87086-TC; 87102-TC; 88108-TC; 88305-TC; 89051-TC; 94002-TC; 94003-TC; 94760-TC; 94762-TC; 94799-TC; 99082-TC; A4623; A4629; A6403; C9113; C9803; G0378; J0692; J1650; J1720; J2543; J3370; J7030; J7042; J7050; J7060

== ENCOUNTER 2022-06-10 11:24 | Outpatient (CLI) | payer MEDICARE, OTHER ==
[~2022-06-10 11:24] MED LIST changes: +ACET100V5 NEB; -COLI150V12 NEB; -ENOX40DI9 SQ; +IOHEXOL-300 100 ML VIAL IV ONE; +MIDO5TAB4 GT; +PANT40SU2 GT; +THERAHONEY TD; +VANC1FRO2 IV
== END 2022-06-10 23:59 | disposition home or self-care (01) ==
LOC: RAD 11:24
PROVIDERS: ATTEND Internal Medicine
DX: N99.528 Other complication of incontinent external stoma of urinary tract (principal); I10 Essential (primary) hypertension; Z88.0 Allergy status to penicillin; Z98.890 Other specified postprocedural states; Z79.899 Other long term (current) drug therapy
CPT/HCPCS: 50435; Q9967

== ENCOUNTER 2022-12-01 17:39 | Inpatient (IN) | payer MEDICARE, OTHER ==
[2022-12-01] VITALS (14 sets, daily range): BP systolic 77–133; BP diastolic 55–68; TEMP 97.7; O2SAT 98–99
[~2022-12-01] VITALS: Ht 167.6 cm; Wt 91.6 kg
[~2022-12-01 17:39] MED LIST changes: +ALBU1.257 HHN; -ALBU1.257 IH; -IOHEXOL-300 100 ML VIAL IV ONE; +IPRA0.2S9 HHN; -IPRA0.2S9 IH
[2022-12-01 17:51] LABS: BASOPHILS % (AUTO) 0.1 % (0.0-2.0); HEMATOCRIT 33 % (39-51); HEMOGLOBIN 10.3 g/dL (13.5-17.5); LYMPHOCYTES # (AUTO) 0.3 K/uL (0.8-4.8); LYMPHOCYTES % (AUTO) 2.6 % (20.0-44.0); MEAN CORPUSCULAR HEMOGLOBIN 27 PG (26.0-33.0); MEAN CORPUSCULAR HGB CONC 32 g/dl (31.0-36.0); MEAN CORPUSCULAR VOLUME 85 fL (80-96); MONOCYTES # (AUTO) 1.4 K/uL (0.1-1.30); MONOCYTES % (AUTO) 10.8 % (2.0-12.0); NEUTROPHILS # (AUTO) 10.9 K/uL (1.8-8.9); NEUTROPHILS % (AUTO) 86.5 % (43.0-81.0); PLATELET COUNT (AUTO) 249 K/uL (150-450); RED BLOOD CELL COUNT(AUTO) 3.82 MIL/uL (4.5-6.0); WHITE BLOOD COUNT (AUTO) 12.7 K/uL (4.3-11.0)
[2022-12-01] MEDS ORDERED: IV D5/ 0.9% NACL 1,000 ML IV ONE (18:00)
[2022-12-01] MEDS ORDERED: NOREPINEPHRINE 8 MG in IV NS 0.9% 242 ML IV PRN (18:00)
[2022-12-01 18:06] LABS: CALCIUM, SERUM 8.4 mg/dL (8.5-10.1); CREATININE 0.9 mg/dL (0.6-1.3); POTASSIUM 4.3 mmol/L (3.5-5.1)
[2022-12-01] MEDS ORDERED: PETR113O TP (18:09)
[2022-12-01] MEDS ORDERED: POVI3780 TP (18:09)
[2022-12-01] MEDS ORDERED: ACID1TAB14 GT (18:09)
[2022-12-01] MEDS ORDERED: NORM10VI2 BLADIN (18:09)
[2022-12-01] MEDS ORDERED: AMIN30LI2 GT (18:09)
[2022-12-01] MEDS ORDERED: MULT-213 GT (18:09)
[2022-12-01] MEDS ORDERED: ENOX40DI9 SQ (18:09)
[2022-12-01] MEDS ORDERED: LACT-209 GT (18:09)
[2022-12-01] MEDS ORDERED: IPRA0.2S9 HHN (18:09)
[2022-12-01] MEDS ORDERED: CALC355O18 GT (18:09)
[2022-12-01] MEDS ORDERED: ALBU1.257 HHN (18:09)
[2022-12-01] MEDS ORDERED: CALC200T29 GT (18:09)
[2022-12-01] MEDS ORDERED: ARGI1POW17 GT (18:09)
[2022-12-01 18:12] LABS: ALBUMIN 2.3 g/dL (3.4-5.0); BILIRUBIN,TOTAL 0.5 mg/dL (0.2-1.0); TOTAL PROTEIN, SERUM 7.4 g/dL (6.4-8.2)
[2022-12-01] MEDS ORDERED: Z GUARD REMEDY 4 OZ OINT TP PRN (18:30)
[2022-12-01] MEDS ORDERED: ONDANSETRON HCL/PF 4 MG/2 ML VIAL IVP PRN (18:30)
[2022-12-01] MEDS ORDERED: ALBUTEROL FS 2.5 MG/3 ML VIAL.NEB NEB PRN (18:30)
[2022-12-01] MEDS ORDERED: MORPHINE SULFATE INJ 2 MG/ML DISP.SYRIN IV PRN (18:30)
[2022-12-01] MEDS ORDERED: ACETAMINOPHEN 650 MG/SUPP.RECT RC PRN (18:30)
[2022-12-01] MEDS ORDERED: DEXTROSE 50%-WATER 50 ML DISP.SYRIN IV PRN (18:30)
[2022-12-01] MEDS ORDERED: IPRATROPIUM NEB FS 0.5 MG/2.5 ML AMPUL.NEB NEB PRN (18:30)
[2022-12-01] MEDS: CEFEPIME 2 GM in IV D5W 100 ML IV SCH (20:10)
[2022-12-01] MEDS: VANCOMYCIN 1.25 GM in IV D5W 250 ML IV SCH (20:56)
[2022-12-01] MEDS ORDERED: ENOXAPARIN SODIUM 40 MG/0.4 ML DISP.SYRIN SQ SCH (21:00)
[2022-12-02] VITALS (59 sets, daily range): BP systolic 93–141; BP diastolic 50–76; TEMP 98–98.6; O2SAT 96–100
[2022-12-02] MEDS: BLOOD SUGAR DIAGNOSTIC 1 EACH STRIP IN SCH ×4 (00:33→18:52)
[2022-12-02] MEDS: INSULIN REGULAR, HUMAN 100 UNIT/ML 3 ML VIAL SQ PRN (00:35)
[2022-12-02] MEDS: IV NS 0.9% 1,000 ML IV PRN ×2 (02:54→20:06)
[2022-12-02 04:42] LABS: ABG OXYGEN SATURATION 99.1 % (92.0-98.5); ABG PH 7.386 (7.350-7.450); ABG PO2 173.4 mmHg (75.0-100.0); ABG TOTAL HEMOGLOBIN 11.8 G/dL (13.5-18.0); AaDO2 132.5 mmHg; COHb 0.3 % (0.5-1.5); MetHb 0.2 % (0.0-1.5); O2Hb 98.6 % (94.0-97.0); PEEP,BG 5 cm H2O; SITE, ABG Right Radial; VT, ABG 550 mL
[2022-12-02 04:57] LABS: BASOPHILS % (AUTO) 0.2 % (0.0-2.0); EOSINOPHILS # (AUTO) 0.1 K/uL (0.0-0.7); EOSINOPHILS % (AUTO) 0.4 % (0.0-6.0); HEMATOCRIT 33 % (39-51); HEMOGLOBIN 10.7 g/dL (13.5-17.5); LYMPHOCYTES % (AUTO) 7.7 % (20.0-44.0); MEAN CORPUSCULAR HEMOGLOBIN 27 PG (26.0-33.0); MEAN CORPUSCULAR HGB CONC 32 g/dl (31.0-36.0); MEAN CORPUSCULAR VOLUME 85 fL (80-96); MONOCYTES # (AUTO) 1.7 K/uL (0.1-1.30); MONOCYTES % (AUTO) 12.5 % (2.0-12.0); NEUTROPHILS # (AUTO) 10.8 K/uL (1.8-8.9); NEUTROPHILS % (AUTO) 79.2 % (43.0-81.0); PLATELET COUNT (AUTO) 292 K/uL (150-450); RED BLOOD CELL COUNT(AUTO) 3.91 MIL/uL (4.5-6.0); RED CELL DISTRIBUTION WIDTH 18.7 % (11.5-15.0); WHITE BLOOD COUNT (AUTO) 13.6 K/uL (4.3-11.0)
[2022-12-02 05:14] LABS: CALCIUM, SERUM 9.1 mg/dL (8.5-10.1); CREATININE 0.8 mg/dL (0.6-1.3); MAGNESIUM 2.3 mg/dL (1.8-2.4); PHOSPHORUS 2.5 mg/dL (2.5-4.9); POTASSIUM 3.7 mmol/L (3.5-5.1)
[2022-12-02] MEDS: CEFEPIME 2 GM in IV D5W 100 ML IV SCH ×2 (08:12→19:59)
[2022-12-02 09:13] LABS: ALBUMIN 2.4 g/dL (3.4-5.0); BILIRUBIN,DIRECT 0.3 mg/dL (0.0-0.2); BILIRUBIN,TOTAL 0.6 mg/dL (0.2-1.0); TOTAL PROTEIN, SERUM 7.6 g/dL (6.4-8.2)
[2022-12-02] MEDS: PANTOPRAZOLE 40 MG VIAL IV SCH (10:02)
[2022-12-02] MEDS: VANCOMYCIN 1.25 GM in IV D5W 250 ML IV SCH ×2 (10:02→21:17)
[2022-12-02 12:06] LABS: APPEARANCE,URINE CLEAR (CLEAR); BILIRUBIN,URINE NEGATIVE (NEGATIVE); BLOOD, URINE 1+ Ery/uL (NEGATIVE); COLOR,URINE YELLOW (YELLOW); KETONES,URINE TRACE mg/dL (NEGATIVE); LEUKOCYTE ESTERASE ,URINE 2+ (NEGATIVE); NITRITE, URINE NEGATIVE (NEGATIVE); PH,URINE 5.5 (5.0-8.0); PROTEIN,URINE 2+ mg/dl (NEGATIVE); UGLUCOSE NEGATIVE (NEGATIVE); UROBILINOGEN,URINE 0.2 EU/dL (0.2)
[2022-12-02] MEDS: THERAHONEY GEL 1.5 OZ TUBE TP SCH (12:25)
[2022-12-02 12:38] LABS: ADD URINE CULTURE YES; BACTERIA,URINE Moderate /HPF (None Seen); SQUAMOUS EPITHELIAL CELL,UR Moderate /HPF (None Seen); URIC ACID CRYSTALS,URINE Few /HPF (None Seen)
[2022-12-03] VITALS (60 sets, daily range): BP systolic 111–140; BP diastolic 48–100; TEMP 97–99; O2SAT 94–100
[2022-12-03] MEDS: BLOOD SUGAR DIAGNOSTIC 1 EACH STRIP IN SCH ×5 (00:32→23:58)
[2022-12-03 05:57] LABS: CREATININE 0.6 mg/dL (0.6-1.3); POTASSIUM 3.8 mmol/L (3.5-5.1)
[2022-12-03 05:59] LABS: BASOPHILS # (AUTO) 0.1 K/uL (0.0-0.2); BASOPHILS % (AUTO) 0.9 % (0.0-2.0); EOSINOPHILS % (AUTO) 0.4 % (0.0-6.0); HEMATOCRIT 32 % (39-51); HEMOGLOBIN 10.2 g/dL (13.5-17.5); LYMPHOCYTES # (AUTO) 0.9 K/uL (0.8-4.8); LYMPHOCYTES % (AUTO) 11.2 % (20.0-44.0); MEAN CORPUSCULAR HEMOGLOBIN 28 PG (26.0-33.0); MEAN CORPUSCULAR HGB CONC 32 g/dl (31.0-36.0); MEAN CORPUSCULAR VOLUME 85 fL (80-96); MONOCYTES # (AUTO) 0.6 K/uL (0.1-1.30); MONOCYTES % (AUTO) 7.4 % (2.0-12.0); NEUTROPHILS # (AUTO) 6.4 K/uL (1.8-8.9); NEUTROPHILS % (AUTO) 80.1 % (43.0-81.0); PLATELET COUNT (AUTO) 238 K/uL (150-450); RED BLOOD CELL COUNT(AUTO) 3.71 MIL/uL (4.5-6.0); RED CELL DISTRIBUTION WIDTH 18.7 % (11.5-15.0); WHITE BLOOD COUNT (AUTO) 7.9 K/uL (4.3-11.0)
[2022-12-03] MEDS: CEFEPIME 2 GM in IV D5W 100 ML IV SCH ×2 (08:06→20:31)
[2022-12-03] MEDS: PANTOPRAZOLE 40 MG VIAL IV SCH (08:06)
[2022-12-03] MEDS: THERAHONEY GEL 1.5 OZ TUBE TP SCH (08:07)
[2022-12-03] MEDS: IV NS 0.9% 1,000 ML IV PRN ×2 (08:13→20:33)
[2022-12-03 09:17] LABS: ANISOCYTOSIS 1+; LYMPHOCYTES % (MANUAL) 11 % (16-48); MONOCYTES % (MANUAL) 6 % (0-11.0); NEUTROPHILS % (MANUAL) 83 (42-76); PLATELET ESTIMATE ADEQUATE
[2022-12-03] MEDS: ACETYLCYSTEINE 10% SOLN 400 MG/4 ML VIAL NEB SCH ×3 (11:30→23:36)
[2022-12-03] MEDS: VANCOMYCIN 1 GM in IV D5W 250ml IV SCH (20:32)
[2022-12-04] VITALS (41 sets, daily range): BP systolic 122–152; BP diastolic 54–72; TEMP 98–99; O2SAT 93–100
[2022-12-04 05:59] LABS: BASOPHILS % (AUTO) 0.2 % (0.0-2.0); EOSINOPHILS % (AUTO) 0.2 % (0.0-6.0); HEMATOCRIT 34 % (39-51); HEMOGLOBIN 10.8 g/dL (13.5-17.5); LYMPHOCYTES # (AUTO) 0.7 K/uL (0.8-4.8); LYMPHOCYTES % (AUTO) 9.3 % (20.0-44.0); MEAN CORPUSCULAR HEMOGLOBIN 27 PG (26.0-33.0); MEAN CORPUSCULAR HGB CONC 31 g/dl (31.0-36.0); MEAN CORPUSCULAR VOLUME 86 fL (80-96); MONOCYTES % (AUTO) 12.6 % (2.0-12.0); NEUTROPHILS # (AUTO) 6.1 K/uL (1.8-8.9); NEUTROPHILS % (AUTO) 77.7 % (43.0-81.0); PLATELET COUNT (AUTO) 198 K/uL (150-450); RED BLOOD CELL COUNT(AUTO) 3.99 MIL/uL (4.5-6.0); RED CELL DISTRIBUTION WIDTH 18.9 % (11.5-15.0); WHITE BLOOD COUNT (AUTO) 7.8 K/uL (4.3-11.0)
[2022-12-04] MEDS: BLOOD SUGAR DIAGNOSTIC 1 EACH STRIP IN SCH ×4 (06:47→23:23)
[2022-12-04 06:49] LABS: ABG OXYGEN SATURATION 98.2 % (92.0-98.5); ABG PCO2 29.7 mmHg (35.0-45.0); ABG PH 7.482 (7.350-7.450); COHb 0.8 % (0.5-1.5); MetHb 0.3 % (0.0-1.5); O2Hb 97.1 % (94.0-97.0); SITE, ABG Right Radial; VENT MODE, BG C/A
[2022-12-04 07:24] LABS: CALCIUM, SERUM 7.9 mg/dL (8.5-10.1); CREATININE 0.5 mg/dL (0.6-1.3)
[2022-12-04] MEDS: ACETYLCYSTEINE 10% SOLN 400 MG/4 ML VIAL NEB SCH ×3 (07:51→23:37)
[2022-12-04] MEDS: THERAHONEY GEL 1.5 OZ TUBE TP SCH (11:21)
[2022-12-04] MEDS: PANTOPRAZOLE 40 MG VIAL IV SCH (11:21)
[2022-12-04] MEDS: CEFEPIME 2 GM in IV D5W 100 ML IV SCH ×2 (11:22→20:29)
[2022-12-04] MEDS: IV NS 0.9% 1,000 ML IV PRN (11:23)
[2022-12-04] MEDS: VANCOMYCIN 1 GM in IV D5W 250ml IV SCH ×2 (12:27→20:16)
[2022-12-04] MEDS ORDERED: VANCOMYCIN 1 GM /D5W 250 ML PB IV ONE (20:13)
[2022-12-04] MEDS ORDERED: GLUCERNA 1.2 1,000 ML BOTTLE NG SCH (22:30)
[2022-12-04] MEDS: INSULIN REGULAR, HUMAN 100 UNIT/ML 3 ML VIAL SQ PRN (23:23)
[2022-12-05] VITALS (14 sets, daily range): BP systolic 106–155; BP diastolic 62–72; TEMP 98.5–98.8; O2SAT 93–100
[2022-12-05] MEDS: BLOOD SUGAR DIAGNOSTIC 1 EACH STRIP IN SCH ×4 (05:20→23:28)
[2022-12-05] MEDS: INSULIN REGULAR, HUMAN 100 UNIT/ML 3 ML VIAL SQ PRN ×2 (05:23→23:27)
[2022-12-05] MEDS: ACETYLCYSTEINE 10% SOLN 400 MG/4 ML VIAL NEB SCH ×3 (07:24→23:56)
[2022-12-05 08:04] LABS: BASOPHILS % (AUTO) 0.5 % (0.0-2.0); EOSINOPHILS # (AUTO) 0.3 K/uL (0.0-0.7); EOSINOPHILS % (AUTO) 3.8 % (0.0-6.0); HEMATOCRIT 34 % (39-51); HEMOGLOBIN 10.8 g/dL (13.5-17.5); LYMPHOCYTES # (AUTO) 0.8 K/uL (0.8-4.8); LYMPHOCYTES % (AUTO) 11.3 % (20.0-44.0); MEAN CORPUSCULAR HEMOGLOBIN 27 PG (26.0-33.0); MEAN CORPUSCULAR HGB CONC 32 g/dl (31.0-36.0); MEAN CORPUSCULAR VOLUME 86 fL (80-96); MONOCYTES # (AUTO) 0.6 K/uL (0.1-1.30); MONOCYTES % (AUTO) 8.9 % (2.0-12.0); NEUTROPHILS # (AUTO) 5.1 K/uL (1.8-8.9); NEUTROPHILS % (AUTO) 75.5 % (43.0-81.0); PLATELET COUNT (AUTO) 237 K/uL (150-450); RED BLOOD CELL COUNT(AUTO) 3.96 MIL/uL (4.5-6.0); RED CELL DISTRIBUTION WIDTH 18.7 % (11.5-15.0); WHITE BLOOD COUNT (AUTO) 6.7 K/uL (4.3-11.0)
[2022-12-05] MEDS: CEFEPIME 2 GM in IV D5W 100 ML IV SCH ×2 (08:13→20:59)
[2022-12-05 08:22] LABS: CALCIUM, SERUM 8.5 mg/dL (8.5-10.1); CREATININE 0.5 mg/dL (0.6-1.3); POTASSIUM 3.2 mmol/L (3.5-5.1)
[2022-12-05] MEDS ORDERED: GLUCERNA 1.2 1,000 ML BOTTLE NG SCH (08:30)
[2022-12-05] MEDS: PROSOURCE / PROSTAT (PYXIS) 30 ML UDC GT SCH ×3 (08:44→17:17)
[2022-12-05] MEDS: ARGININE/GLUTAMINE/CALCIUM BMB 1 EACH POWD.PACK GT SCH ×2 (08:44→17:16)
[2022-12-05] MEDS: THERAHONEY GEL 1.5 OZ TUBE TP SCH (08:58)
[2022-12-05] MEDS: PANTOPRAZOLE 40 MG/PACK PACK GT SCH (08:59)
[2022-12-05] MEDS: VANCOMYCIN 1 GM in IV D5W 250ml IV SCH ×2 (09:05→20:58)
[2022-12-05] MEDS: IV NS 0.9% 1,000 ML IV PRN (09:40)
[2022-12-05] MEDS: POTASSIUM CHLORIDE 20 MEQ POWDER PACKET NG SCH ×2 (10:33→11:46)
[2022-12-06] VITALS: BP 143/67; TEMP 99.1; O2SAT 99
[2022-12-06 04:00] VITALS: BP 127/73; TEMP 99.1; O2SAT 99
[2022-12-06] MEDS: IV NS 0.9% 1,000 ML IV PRN (05:17)
[2022-12-06] MEDS: BLOOD SUGAR DIAGNOSTIC 1 EACH STRIP IN SCH ×2 (06:00→12:07)
[2022-12-06 07:21] LABS: BASOPHILS # (AUTO) 0.1 K/uL (0.0-0.2); BASOPHILS % (AUTO) 0.6 % (0.0-2.0); EOSINOPHILS # (AUTO) 0.2 K/uL (0.0-0.7); EOSINOPHILS % (AUTO) 2.7 % (0.0-6.0); HEMATOCRIT 33 % (39-51); HEMOGLOBIN 10.7 g/dL (13.5-17.5); LYMPHOCYTES # (AUTO) 0.9 K/uL (0.8-4.8); LYMPHOCYTES % (AUTO) 9.9 % (20.0-44.0); MEAN CORPUSCULAR HEMOGLOBIN 28 PG (26.0-33.0); MEAN CORPUSCULAR HGB CONC 33 g/dl (31.0-36.0); MEAN CORPUSCULAR VOLUME 85 fL (80-96); MONOCYTES # (AUTO) 0.9 K/uL (0.1-1.30); MONOCYTES % (AUTO) 9.9 % (2.0-12.0); NEUTROPHILS # (AUTO) 6.7 K/uL (1.8-8.9); NEUTROPHILS % (AUTO) 76.9 % (43.0-81.0); PLATELET COUNT (AUTO) 256 K/uL (150-450); RED BLOOD CELL COUNT(AUTO) 3.89 MIL/uL (4.5-6.0); RED CELL DISTRIBUTION WIDTH 18.6 % (11.5-15.0); WHITE BLOOD COUNT (AUTO) 8.7 K/uL (4.3-11.0)
[2022-12-06 07:53] LABS: CALCIUM, SERUM 8.6 mg/dL (8.5-10.1); CREATININE 0.6 mg/dL (0.6-1.3); POTASSIUM 3.3 mmol/L (3.5-5.1)
[2022-12-06 08:00] VITALS: BP_SYST 127; BP_SYST 146; BP_DIAS 73; BP_DIAS 74; TEMP 99.1; TEMP 99.7; O2SAT 100; O2SAT 99
[2022-12-06 08:10] VITALS: O2SAT 98
[2022-12-06] MEDS: ACETYLCYSTEINE 10% SOLN 400 MG/4 ML VIAL NEB SCH (08:29)
[2022-12-06 08:30] VITALS: O2SAT 100
[2022-12-06] MEDS: CEFEPIME 2 GM in IV D5W 100 ML IV SCH (08:40)
[2022-12-06] MEDS: VANCOMYCIN 1 GM in IV D5W 250ml IV SCH (08:40)
[2022-12-06] MEDS: PANTOPRAZOLE 40 MG/PACK PACK GT SCH (08:40)
[2022-12-06] MEDS: PROSOURCE / PROSTAT (PYXIS) 30 ML UDC GT SCH ×2 (08:41→12:07)
[2022-12-06] MEDS: ARGININE/GLUTAMINE/CALCIUM BMB 1 EACH POWD.PACK GT SCH (08:42)
[2022-12-06] MEDS: THERAHONEY GEL 1.5 OZ TUBE TP SCH (09:03)
[2022-12-06] MEDS ORDERED: POTASSIUM CHLORIDE 20 MEQ POWDER PACKET NG SCH (11:00)
[2022-12-06 12:00] VITALS: BP 160/76; TEMP 99; O2SAT 97
== END 2022-12-06 14:31 | DRG 853 ==
LOC: ICU 17:39 → TELE1 12-04 17:50
PROVIDERS: ADMIT Nurse Practitioner Acute Care; ATTEND Internal Medicine
PROC: 5A1945Z Respiratory Ventilation, 24-96 Consecutive Hours (ICD-10-PCS; principal; 2022-12-01)
PROC: 0KBN0ZZ Excision of Right Hip Muscle, Open Approach (ICD-10-PCS; 2022-12-03)
PROC: 0KBP0ZZ Excision of Left Hip Muscle, Open Approach (ICD-10-PCS; 2022-12-03)
PROC: 0KBP0ZZ Excision of Left Hip Muscle, Open Approach (ICD-10-PCS; 2022-12-03)
PROC: 05H633Z Insertion of Infusion Device into Left Subclavian Vein, Percutaneous Approach (ICD-10-PCS; 2022-12-03)
PROC: B547ZZA Ultrasonography of Left Subclavian Vein, Guidance (ICD-10-PCS; 2022-12-03)
PROC: 02HV33Z Insertion of Infusion Device into Superior Vena Cava, Percutaneous Approach (ICD-10-PCS; 2022-12-04)
PROC: B548ZZA Ultrasonography of Superior Vena Cava, Guidance (ICD-10-PCS; 2022-12-04)
DX: A41.9 Sepsis, unspecified organism (principal); G93.41 Metabolic encephalopathy; L89.324 Pressure ulcer of left buttock, stage 4; L89.154 Pressure ulcer of sacral region, stage 4; R65.21 Severe sepsis with septic shock; N17.0 Acute kidney failure with tubular necrosis; J15.69 Pneumonia due to other Gram-negative bacteria; N39.0 Urinary tract infection, site not specified; Z99.11 Dependence on respirator [ventilator] status; D68.69 Other thrombophilia; E87.20 Acidosis, unspecified; J96.10 Chronic respiratory failure, unspecified whether with hypoxia or hypercapnia; J98.11 Atelectasis; E11.9 Type 2 diabetes mellitus without complications; E66.9 Obesity, unspecified; G35 Multiple sclerosis; I10 Essential (primary) hypertension; J44.9 Chronic obstructive pulmonary disease, unspecified; R13.10 Dysphagia, unspecified; Z87.01 Personal history of pneumonia (recurrent); Z87.440 Personal history of urinary (tract) infections; Z87.891 Personal history of nicotine dependence; Z88.0 Allergy status to penicillin; Z20.822 Contact with and (suspected) exposure to COVID-19; B96.4 Proteus (mirabilis) (morganii) as the cause of diseases classified elsewhere; Z74.09 Other reduced mobility; C44.719 Basal cell carcinoma of skin of left lower limb, including hip; Z87.442 Personal history of urinary calculi; L30.9 Dermatitis, unspecified; Z93.0 Tracheostomy status; Z93.1 Gastrostomy status; L57.0 Actinic keratosis; T17.990A Other foreign object in respiratory tract, part unspecified in causing asphyxiation, initial encounter; Z68.32 Body mass index [BMI] 32.0-32.9, adult; Z93.6 Other artificial openings of urinary tract status
CPT/HCPCS: 31720; 36415; 36600; 71045-TC; 76705-TC; 80048-TC; 80053-TC; 80076-TC; 80202-TC; 81001; 82803-TC; 83735-TC; 84100-TC; 85025-TC; 87040-TC; 87081-TC; 87086-TC; 93307-TC; 94002-TC; 94003-TC; 94640-TC; 94799-TC; 99082-TC; A4223; A6403; C9113; G0378; J0692; J1815; J3370; J3490; J7030; J7050; J7060

== ENCOUNTER → 2022-12-23 | Day surgery (SDC) | payer MEDICARE, OTHER ==
[~2022-12-23] MED LIST changes: -ACET100V5 NEB; -ACID1TAB12 GT; +ACID1TAB14 GT; -ALLA266C2 TP; +AMIN30LI2 GT; -AMIN30LI25 GT; +ARGI1POW17 GT; -CALC-494 GT; -CALC0.253 PO; +CALC200T29 GT; +CALC355O18 GT; -CEFE2FRO IV; -CLOT15CR27 TP; +ENOX40DI9 SQ; -ESCI10TA GT; +IOHEXOL 240MG/ML 50 ML IV ONE; +LACT-209 GT; -MAG30ORA GT; -METH-406 GT; -MIDO5TAB4 GT; -MINE396O3 TP; +MULT-213 GT; -MULT-659 GT; +NORM10VI2 BLADIN; -NUT.237L30 GT; -PANT40SU2 GT; +PETR113O TP; +POVI3780 TP; -VANC1FRO2 IV
== END | disposition home or self-care (01) ==
LOC: EDSTATUS 12-20 11:00 → DS 12:08
PROVIDERS: ATTEND Internal Medicine
DX: N20.0 Calculus of kidney (principal)
CPT/HCPCS: 50435; Q9966

== ENCOUNTER 2023-04-25 11:06 | Outpatient (CLI) | payer MEDICARE, MEDICAID ==
[~2023-04-25 11:06] MED LIST changes: -IOHEXOL 240MG/ML 50 ML IV ONE
[2023-04-25] MEDS ORDERED: IOHEXOL 50 ML IV ONE (11:58)
== END 2023-04-25 23:59 | disposition home or self-care (01) ==
LOC: RAD 11:06
PROVIDERS: ATTEND Internal Medicine
DX: N20.0 Calculus of kidney (principal); I10 Essential (primary) hypertension; Z98.890 Other specified postprocedural states; Z79.899 Other long term (current) drug therapy
CPT/HCPCS: 50435; Q9967

== ENCOUNTER → 2023-12-14 | Day surgery (SDC) | payer MEDICARE, OTHER ==
[~2023-12-14] MED LIST changes: +BUPIVACAINE 0.25% 75 MG/30 ML VIAL ONE; +BUPIVACAINE 0.5 % PF 150 MG/30 ML VIAL ONE; +FENTANYL PF 100MCG/2ML AMPUL ONE; +LIDOCAINE 1%-EPI 1:100,000 20 ML VIAL ONE; +LIDOCAINE HCL/MPF 1% 30 ML VIAL IJ ONE
== END | disposition home or self-care (01) ==
LOC: DS 09:40
PROVIDERS: ATTEND Internal Medicine
DX: C76.51 Malignant neoplasm of right lower limb (principal); G89.4 Chronic pain syndrome; E11.9 Type 2 diabetes mellitus without complications; J96.10 Chronic respiratory failure, unspecified whether with hypoxia or hypercapnia; G35 Multiple sclerosis; F12.90 Cannabis use, unspecified, uncomplicated; Z87.440 Personal history of urinary (tract) infections; Z87.01 Personal history of pneumonia (recurrent); Z87.442 Personal history of urinary calculi; Z86.2 Personal history of diseases of the blood and blood-forming organs and certain disorders involving the immune mechanism; Z79.899 Other long term (current) drug therapy; Z99.11 Dependence on respirator [ventilator] status; Z93.3 Colostomy status; Z98.890 Other specified postprocedural states
CPT/HCPCS: 11606; 88305; A6253; A6402; J0690; J2405; J3010; J3490; J7030; J7070

== ENCOUNTER → 2024-02-22 | Day surgery (SDC) | payer MEDICARE, OTHER ==
[~2024-02-22] MED LIST changes: -BUPIVACAINE 0.25% 75 MG/30 ML VIAL ONE; -BUPIVACAINE 0.5 % PF 150 MG/30 ML VIAL ONE; -FENTANYL PF 100MCG/2ML AMPUL ONE; -LIDOCAINE 1%-EPI 1:100,000 20 ML VIAL ONE; +LIDOCAINE 5% OINT 35.44 GM TUBE ONE; -LIDOCAINE HCL/MPF 1% 30 ML VIAL IJ ONE
== END | disposition home or self-care (01) ==
LOC: DS 08:49
PROVIDERS: ATTEND Internal Medicine Pulmonary Disease
DX: J98.11 Atelectasis (principal); J96.10 Chronic respiratory failure, unspecified whether with hypoxia or hypercapnia; I10 Essential (primary) hypertension; E11.9 Type 2 diabetes mellitus without complications; M19.90 Unspecified osteoarthritis, unspecified site; G89.4 Chronic pain syndrome; G35 Multiple sclerosis; J90 Pleural effusion, not elsewhere classified; J44.9 Chronic obstructive pulmonary disease, unspecified; F32.A Depression, unspecified; E66.01 Morbid (severe) obesity due to excess calories; Z68.41 Body mass index [BMI] 40.0-44.9, adult; Z79.899 Other long term (current) drug therapy; Z87.440 Personal history of urinary (tract) infections; Z87.01 Personal history of pneumonia (recurrent); Z86.2 Personal history of diseases of the blood and blood-forming organs and certain disorders involving the immune mechanism; Z85.828 Personal history of other malignant neoplasm of skin; Z87.442 Personal history of urinary calculi; Z88.0 Allergy status to penicillin; Z93.0 Tracheostomy status; Z93.1 Gastrostomy status; Z93.3 Colostomy status; Z98.890 Other specified postprocedural states
CPT/HCPCS: 31624; J3490; J7030